=== PATIENT | female | born 1950 | race Caucasian/White ===

== ENCOUNTER 2017-12-07 11:46 | Day surgery (SDC) | payer MEDICARE, OTHER, SELFPAY ==
[2017-12-07] VITALS (10 sets, daily range): BP systolic 130–155; BP diastolic 63–76; PULSE 79–93; RESP 16–20; TEMP 36–36.3; O2SAT 91–97; BMI 41.8
[2017-12-07 12:40] LABS: Bedside Glucose 151 mg/dL (70-110)
== END 2017-12-07 15:27 | disposition home or self-care (01) ==
LOC: EN 11:46 → AC 11:48
PROVIDERS: Family Provider Internal Medicine; PCP Internal Medicine; Visit Provider Internal Medicine Pulmonary Disease
PROC: 0BJ08ZZ Inspection of Tracheobronchial Tree, Via Natural or Artificial Opening Endoscopic (ICD-10-PCS; CPT 31622; principal; 2017-12-07 12:35)
DX: J69.0 Pneumonitis due to inhalation of food and vomit (principal); R05 Cough; G47.33 Obstructive sleep apnea (adult) (pediatric); J45.909 Unspecified asthma, uncomplicated; N18.3 Chronic kidney disease, stage 3 (moderate); E11.9 Type 2 diabetes mellitus without complications; E78.00 Pure hypercholesterolemia, unspecified; I12.9 Hypertensive chronic kidney disease with stage 1 through stage 4 chronic kidney disease, or unspecified chronic kidney disease; Z79.4 Long term (current) use of insulin; Z87.891 Personal history of nicotine dependence
CPT/HCPCS: 31624; 31899; 82962; 87070; 87077; 87186; 87205; J7120

== ENCOUNTER → 2017-12-30 15:26 | Outpatient (CLI) | payer MEDICARE, OTHER, SELFPAY ==
--- NOTE | 2017-12-30 15:29 | RAD_ITS ---
STUDY: X-RAY CHEST REASON FOR EXAM: Female, 67 years old. Cough. Pneumonitis. TECHNIQUE: PA and lateral views of the chest. COMPARISON: Comparison is made with prior examination dated December 22, 2017. FINDINGS: Scattered calcified granulomas. Minimal thickening of the lateral aspect of the right minor fissure. This most likely represents scarring. There is no demonstrated pleural abnormality. There is moderate cardiac enlargement. There are calcified mediastinal and hilar lymph nodes. Normal visualized pulmonary arteries. There is atherosclerotic calcification of the aortic arch with tortuosity. There are diffuse degenerative changes of the visualized thoracic spine. Dextroscoliosis. Pectus excavatum deformity. There is no demonstrated abnormality of the visualized soft tissue structures of the upper abdomen. RAD/Chest PA and Lateral IMPRESSION: Cardiomegaly. Pectus excavatum deformity. No acute abnormality is seen. Electronically Signed: Anam Larios MD at 12:54 EST Tel [phone], Service support ,
== END ==
PROVIDERS: Family Provider Internal Medicine; PCP Internal Medicine; Visit Provider Internal Medicine Pulmonary Disease
DX: J18.9 Pneumonia, unspecified organism (principal); R05 Cough
CPT/HCPCS: 71046

== ENCOUNTER 2018-01-08 15:33 | Day surgery (SDC) | payer MEDICARE, OTHER, SELFPAY ==
[2018-01-08] VITALS (8 sets, daily range): BP systolic 138–168; BP diastolic 63–100; PULSE 84–99; RESP 18–20; TEMP 36.2–36.5; O2SAT 87–98; BMI 41.7
[2018-01-08 16:25] LABS: Bedside Glucose 132 mg/dL (70-110)
--- NOTE | 2018-01-08 18:05 | PCM.PN.BLA ---
Progress Note Bronchoscopy report Procedure: Bronchoscopy with bronchial lavage and foreign body removal Indication: Cough, shortness of breath Physician: Octavio Delgado MD Nurse: Azeb Bellamy, anesthesia Date is 01/08/2018 Anesthesia: Topical lidocaine viscous, liquid 2% lidocaine, Cetacaine spray, propofol per anesthesia Procedure: After addressing the risks and benefits with the patient including but not limited to pneumothorax, bleeding, infection. The 6.1 mm bronchoscope was advanced into the right nares after 2 cc of Forest-Synephrine and viscous lidocaine. The anatomy and movement of the cords was normal. The anatomy and movement of the epiglottis was normal. The upper trachea showed normal anatomy. The left tracheobronchial tree including the left upper lobe segment and lower lobe segments were narrow but patent and without foreign body. The right upper lobe segments and subsegments as well as the right middle lobe superior segment and medial basilar segments were patent. Right lower lobe segments were occluded with a foreign object. Steps were advanced and a PE was removed from the right lower lobe which occluded the entire lower lobe beyond the medial basilar segment this patient's airways are small. The foreign body was removed through the right nares but broke in half in the nose. He 5% of the material was suctioned and removed after the procedure the patient has to blow her nose further. Vision was then turned to the same areas with a small bore 5.3 mm scope with the scope was advanced further out in all of the above described segments of the bronchial lavage done in the right lower lobe there are segment producing thick mucoid material. Care was sent for culture but there is no further foreign material identified. The superior segment on the right, on the left in the left lower lobe were also lavaged without any return of mucus or material with the patient tolerated the procedure with an improvement in saturation from 87% on room air at rest to 93% at room air after the procedure the right lower lobe was patent The patient was stable to recovery and the patient and the patient's was informed of the findings and all questions were answered.
== END 2018-01-08 19:24 | disposition home or self-care (01) ==
LOC: EN 15:33 → AC 15:35
PROVIDERS: Family Provider Internal Medicine; PCP Internal Medicine; Visit Provider Internal Medicine Pulmonary Disease
PROC: 0BJ08ZZ Inspection of Tracheobronchial Tree, Via Natural or Artificial Opening Endoscopic (ICD-10-PCS; CPT 31622; principal; 2018-01-08 16:45)
DX: J69.0 Pneumonitis due to inhalation of food and vomit (principal); J45.902 Unspecified asthma with status asthmaticus; K21.9 Gastro-esophageal reflux disease without esophagitis; G47.33 Obstructive sleep apnea (adult) (pediatric); E66.09 Other obesity due to excess calories; D86.9 Sarcoidosis, unspecified; J44.9 Chronic obstructive pulmonary disease, unspecified; E78.00 Pure hypercholesterolemia, unspecified; E11.22 Type 2 diabetes mellitus with diabetic chronic kidney disease; I12.9 Hypertensive chronic kidney disease with stage 1 through stage 4 chronic kidney disease, or unspecified chronic kidney disease; N18.3 Chronic kidney disease, stage 3 (moderate); D63.1 Anemia in chronic kidney disease; Z79.4 Long term (current) use of insulin; Z98.1 Arthrodesis status; Z87.891 Personal history of nicotine dependence; Z79.899 Other long term (current) drug therapy; Z85.828 Personal history of other malignant neoplasm of skin
CPT/HCPCS: 31622; 31635; 82962; 87070; 87205; J7120; A4216

== ENCOUNTER → 2018-01-29 13:08 | Outpatient (CLI) | payer MEDICARE, OTHER, SELFPAY ==
--- NOTE | 2018-01-29 13:25 | RAD_ITS ---
STUDY: SWALLOWING STUDY REASON FOR EXAM: Female, 67 years old. Possible aspiration. TECHNIQUE: The examination was performed with Speech Pathology in attendance. Under fluoroscopic observation, the patient ingested thin barium, thick barium, barium pudding, and barium coated cracker. FLUOROSCOPY TIME: 2:18 minutes/seconds. 2073 spot views were obtained. RADIOLOGIST INVOLVEMENT: Radiologist was present and providing direct supervision. COMPARISON: None. FINDINGS: The following was observed during swallowing of the various mixtures of barium: Thin Barium: There is evidence of penetration and evacuation with ingestion of thin liquids. There is evidence of aspiration with the chin tuck maneuver. Thick Barium: There was no evidence of aspiration or laryngeal penetration. Barium Pudding: There was no evidence of aspiration or laryngeal penetration. Barium Coated Cracker: There was no evidence of aspiration or laryngeal penetration. RAD/Swallowing Function w/Video IMPRESSION: Penetration with evacuation upon ingestion of thin liquids. The patient ingested a 12 mm tablet of barium without any difficulty. The swallow study findings were discussed with the patient by the speech pathologist at the conclusion of the examination. Please see speech pathology report for more information and recommendations. Electronically Signed: Anam Larios MD at 14:25 EST Tel [phone], Service support ,
--- NOTE | 2018-01-29 13:30 | SP.MBSS_ITS ---
PRIMARY / SECONDARY DIAGNOSIS: dysphagia (R13.10) REFERRING PHYSICIAN: Dr. Isaías Stroud MD CURRENT DIET: regular textures, thin liquids DENTITION: WFL MENTAL STATUS: WNL RESPIRATORY STATUS: O2 via room air PREVIOUS MODIFIED BARIUM SWALLOW STUDY: none REASON FOR REFERRAL: Patient is a 67 year old female referred for a modified barium swallow (MBS) study to objectively assess the Patients oropharyngeal swallow function under fluoroscopy secondary to recent recurring issues with consumption of primarily solid textures, with the Patient experiencing recent aspiration of solid textures with similar episodes occurring approximately 4 years prior all requiring bronchoscopy with bronchial lavage and foreign body removal. 2013 Patient inhaled pieces of hamburger and Danish rice. 04/26/2014 underwent bronchoscopy with bronchial lavage and foreign body removal after aspirating rice during intake of hamburger and Danish rice. 12/04/2017 CT/Chest revealed old granulomatous disease; no acute pulmonary abnormality; resolution of the right lower lobe infiltrate seen on the prior CT. 12/31/2017 CXR revealed cardiomegaly; pectus excavatum deformity; no acute abnormality is seen. 2017 underwent bronchoscopy with bronchial lavage and foreign body removal after aspirating rice during intake of [place] food with resulting pneumonitis of both food and emesis with bronchospasm, documentation reveals history of esophageal strictures with plans for segmental wall installer referral for possible esophageal dilatation. Patient reports additional incidences at out of state locations. Patient further reports extensive history of gastroesophageal reflux , with all items consumed during said incidences described to this clinician consisting of caffeinated beverages in addition to spicy and acidic foods. Patient further reported taking fat burners prior to initial onset of symptoms, unclear as to what exactly this is. MEDICAL HISTORY: Recurrent aspiration pneumonia, history of esophageal strictures, chronic obstructive lung disease, sarcoidosis, asthma, stage II chronic kidney disease, allergies, skin cancer of the face, obstructive sleep apnea, benign hypertension , hyperlipidemia, on home O2, type 2 diabetes mellitus. STUDY FINDINGS: Patient participated in a Modified Barium Swallow (MBS) study on 01/22/2018. Dr. Larios was the radiologist present for this evaluation. This study was recorded in the lateral view and images were sent to PACs for storage. The following consistencies were presented to this patient for analysis of oropharyngeal swallow function: thin liquids, nectar thickened liquids, pudding , and a regular textured, Nika Doone cookie. Results of the MBS are as follows: PENETRATION / ASPIRATION SCALE (COX): 1 = does not enter airway 2 = enters airway/above vocal folds/ejected 3 = enters airway/above vocal folds/not ejected 4 = enters airway/contacts vocal folds/ejected 5 = enters airway/contacts vocal folds/not ejected 6 = enters airway/below vocal folds/ejected 7 = enters airway/below vocal folds/not ejected despite effort 8 = enters airway/below vocal folds/no effort VIDEOFLOROSCOPIC SCALE SCORE (COX): Grade I = aspiration of material that has penetrated into the laryngeal vestibule, intact cough reflex Grade II = aspiration < 10 % of the bolus, intact cough reflex Grade III = aspiration of < 10 % of the bolus, reduced cough reflex or aspiration of > 10 % of the bolus, intact cough reflex Grade IV = aspiration of > 10 % of the bolus, reduced cough reflex PENETRATION / ASPIRATION SCALE (SCORE) WITH VIDEOFLOROSCOPIC SCALE SCORE: Thin liquids via cup (habitual): 1 Thin liquids via cup (single sip): 1 Thin liquids via cup (chin tuck): 7 - Grade II Thin liquids via cup (single sip): 2 Thin liquids via cup (single sip): 2 Thin liquids via cup (single sip): 1 Thin liquids via cup (single sip): 2 Thin liquids via cup (single sip): 1 [place] thickened liquids via cup (single sip): 1 [place] thickened liquids via cup (single sip): 2 [place] thickened liquids via cup (single sip): 1 Pudding via spoon: 1 Regular textured cookie: 1 Regular textured cookie: 1 Thin liquids via cup with 12mm tablet: 1 IMPRESSION: DIAGNOSIS: mild to moderate oropharyngeal and pharyngoesophageal dysphagia ( R13.12) ORAL PHASE CHARACTERIZED BY: LABIAL SEAL: no labial escape TONGUE CONTROL DURING BOLUS MANIPULATION: intermittent posterior escape of less than half of bolus BOLUS PREPARATION / MASTICATION: timely and efficient chewing and mashing BOLUS TRANSPORT / LINGUAL MOTION: brisk tongue motion ORAL RESIDUE: trace residue lining oral structures PHARYNGEAL PHASE CHARACTERIZED BY: INITIATION OF PHARYNGEAL SWALLOW: intermittent bolus head in pyriforms at first hyoid excursion during thin liquids; bolus head in valleculae at first hyoid excursion across majority of trials SOFT PALATE ELEVATION: no bolus between soft palate and pharyngeal wall LARYNGEAL ELEVATION: partial superior movement of thyroid cartilage/partial approximation of arytenoids cartilage to epiglottic petiole ANTERIOR HYOID EXCURSION: complete anterior movement EPIGLOTTIC MOVEMENT: complete epiglottic inversion LARYNGEAL VESTIBULE CLOSURE AT HEIGHT OF SWALLOW: complete laryngeal vestibule closure with no air/contrast in laryngeal vestibule PHARYNGEAL STRIPPING WAVE: pharyngeal stripping wave present / complete PHARYNGOESOPHAGEAL SEGMENT OPENING: partial distension and partial duration; partial obstruction of flow TONGUE BASE RETRACTION: no contrast between tongue base and posterior pharyngeal wall PHARYNGEAL RESIDUE: trace residue within or on pharyngeal structures ESOPHAGEAL PHASE CHARACTERIZED BY: ESOPHAGEAL BOLUS CLEARANCE IN THE UPRIGHT POSITION: esophageal retention with retrograde flow below pharyngoesophageal segment (PES) EFFECTS OF TREATMENT STRATEGIES ATTEMPTED: Chin tuck posture = ineffective Reduced bolus size = moderately effective DIET TEXTURE RECOMMENDATIONS: Will recommend a regular textured, thin liquid diet. COMPENSATORY STRATEGIES RECOMMENDED: Reduced bolus volume, reduced rate of intake, avoid straws, seated upright at 90 degrees during PO intake, remain upright for at minimum 60 minutes post meal (GERD precaution) INTERPRETATION OF RESULTS: Patient presents with mild to moderate oropharyngeal dysphagia and pharyngoesophageal dysphagia (R13.12, R13.14). Oral phase primarily marked by suboptimal lingual control with intermittent posterior escape of less than half of bolus directly attributing to pre-prandial penetration and aspiration during thin liquid intake with chin tuck posture. Pharyngeal phase primarily marked by consistent delayed pharyngeal swallow onset timing resulting in suboptimal bolus location upon swallow onset contributing to intermittent prandial penetration without improvement appreciated from postural and texture adjustments; and partial distension and partial duration of the pharyngoesophageal segment opening with partial obstruction of flow, tough largely inconsequential. Esophageal phase marked by consistent esophageal retention within the lower 3rd of the esophagus with retrograde flow below pharyngoesophageal segment (PES), may likely be a contributing factor in regards to the Patients current complaints. Patient noted to overtly aspirate during very minimal (<5%) amount of thin liquids aspirated. Adequate ingestion of solid textures appreciated. RECOMMENDATIONS: Would recommend continued assessment of the Patients esophageal functioning, as it is outside the scope of the modified barium swallow study to objectively assess esophageal functioning, with workup currently underway via segmental wall installer. Patient able to comprehend and express recommended intake precautions detailed above with sufficient detail to suggest high likelihood of compliance. Provided brief overview of signs and symptoms of aspiration, with recommendations for the Patient to further discuss symptoms with PCP. No further skilled speech-language services warranted at this time targeting dysphagia. ADDITIONAL COMMENTS/RECOMMENDATIONS: Results and recommendations were discussed with the Patient immediately following MBS completion, with the Patient verbalizing understanding and agreement with all recommendations and education provided. IMAGE COUNT: 2073 G-CODES: SWALLOWING [id number] Current Status: CI SWALLOWING [id number] Goal Status: CI SWALLOWING [id number] Discharge Status: CI
== END ==
PROVIDERS: Family Provider Internal Medicine; PCP Internal Medicine; Visit Provider Internal Medicine Gastroenterology
DX: T17.820A Food in other parts of respiratory tract causing asphyxiation, initial encounter (principal)
CPT/HCPCS: 74230; 92611; G8996; G8997; G8998

== ENCOUNTER → 2018-03-29 11:06 | Outpatient (CLI) | payer MEDICARE, OTHER, SELFPAY ==
[2018-03-29 12:13] LABS: Microalbumin,Random Urine 6.1 mg/L (NO RANGE EST.); Microalbumin:Creatinine Ratio 5.5 mg/g CRE (<30 mg/g CRE)
[2018-03-29 12:42] LABS: Hematocrit 42.5 % (37-47); Hemoglobin 13.3 g/dl (12.0-15.0); Mean Corp Hgb Conc 31.3 g/gl (32-36); Mean Corpuscular Hgb 29.6 pg (27.0-32.0); Mean Corpuscular Volume 94.7 fL (81-99); Mean Platelet Vol. 9.5 fl (6.2-12.0); Platelet Count 258 K/mm3 (150-450); RBC Distribution Width CV 14.6 % (11.6-14.6); RBC Distribution Width SD 50.1 fl (35.1-43.9); Red Blood Count 4.49 M/mm3 (4.2-5.4); White Blood Count 9.7 K/mm3 (4.4-11.0)
[2018-03-29 12:56] LABS: PTHIN 25.7 pg/mL (18.4-80.1)
[2018-03-29 12:58] LABS: Albumin, Serum 3.4 g/dL (3.2-5.0); BUN 29 mg/dL (7-18); BUN/Creat Ratio 19.1 RATIO (10-20); Calcium,Total 9.8 mg/dL (8.5-10.1); Chloride 107 mmol/L (98-107); Creatinine, Serum 1.52 mg/dL (0.55-1.02); EST Glomerular Filtration Rate 36 mL/min (>60); Est Glom Filt Rate - Afr Amer 44 mL/min (>60); Glucose 107 mg/dL (74-106); Magnesium 1.7 mg/dL (1.6-2.6); Phosphorus 2.1 mg/dL (2.5-4.9); Potassium 3.9 mmol/L (3.5-5.1); Sodium Level 143 mmol/L (136-145); Uric Acid 8.4 mg/dL (2.6-6.0)
[2018-03-29 13:10] LABS: Vitamin D,25 Hydroxy 36.6 ng/mL (29.95-100.01)
[2018-03-29 13:15] LABS: Scan Indicated on CBC? Y/N NO
== END ==
PROVIDERS: Family Provider Internal Medicine; PCP Internal Medicine; Visit Provider Internal Medicine Nephrology
DX: E55.9 Vitamin D deficiency, unspecified (principal); E83.52 Hypercalcemia; N18.4 Chronic kidney disease, stage 4 (severe); D63.1 Anemia in chronic kidney disease; M10.9 Gout, unspecified
CPT/HCPCS: 36415; 80069; 82043; 82306; 82570; 83735; 83970; 84550; 85027

== ENCOUNTER → 2018-04-01 13:24 | Outpatient (CLI) | payer MEDICARE, OTHER, SELFPAY ==
[2018-04-01 14:03] LABS: Amphetamine Urine VISTA NEGATIVE (<1000 ng/mL); Barbiturate Urine VISTA NEGATIVE (< 200 ng/mL); Benzodiazepine Urine VISTA NEGATIVE (< 200 ng/mL); Cocaine Urine VISTA NEGATIVE (< 300 ng/mL); Ecstacy Urine VISTA NEGATIVE (< 500 ng/mL); Methadone Urine VISTA NEGATIVE (< 300 ng/mL); PCP Urine VISTA NEGATIVE (< 25 ng/mL); THC Urine VISTA NEGATIVE (< 50 ng/mL); Vista UDS pH Range 7
== END ==
PROVIDERS: Family Provider Internal Medicine; PCP Internal Medicine; Visit Provider Anesthesiology Pain Medicine
DX: F11.20 Opioid dependence, uncomplicated (principal)
CPT/HCPCS: 80307

== ENCOUNTER 2018-04-22 13:22 | Outpatient (RCR) | payer MEDICARE, OTHER, SELFPAY ==
[2018-04-22 13:56] LABS: Anion Gap 3 (5-15); BUN 26 mg/dL (7-18); BUN/Creat Ratio 18.4 RATIO (10-20); Calcium,Total 8.7 mg/dL (8.5-10.1); Chloride 104 mmol/L (98-107); Creatinine, Serum 1.41 mg/dL (0.55-1.02); EST Glomerular Filtration Rate 40 mL/min (>60); Est Glom Filt Rate - Afr Amer 48 mL/min (>60); Glucose 112 mg/dL (74-106); Potassium 4.4 mmol/L (3.5-5.1); Sodium Level 138 mmol/L (136-145)
== END 2018-04-29 23:59 ==
LOC: HHLAB 13:22
PROVIDERS: Family Provider Internal Medicine; PCP Internal Medicine; Visit Provider Orthopaedic Surgery
DX: E11.9 Type 2 diabetes mellitus without complications (principal); I10 Essential (primary) hypertension
CPT/HCPCS: 80048

== ENCOUNTER → 2018-05-20 10:49 | Outpatient (CLI) | payer MEDICARE, OTHER, SELFPAY ==
--- NOTE | 2018-05-20 10:51 | BI_ITS ---
MAMMOGRAPHY - BILATERAL SCREENING REASON FOR EXAM: Female, 67 years old. Routine annual screening examination. PERTINENT HISTORY: Non-contributory. TECHNIQUE: Digital bilateral breast arie (3D mammographic acquisition) in the CC and MLO projections. 2-D mediolateral oblique (MLO) and craniocaudad (CC) views of both breasts were obtained. CAD: Full Field Digital Mammography with Computer Added Detection was performed. COMPARISON: Comparison is made with prior study dated May 12, 2017 and May 09, 2016. FINDINGS: Breast Composition: The breasts are almost entirely fatty. There are no dominant masses or suspicious calcifications. No other significant abnormalities are identified. There has been no significant change since the prior study. BI/SCREENING MAMM (CAD), BILAT IMPRESSION: Stable bilateral screening mammogram. Yearly follow-up mammogram recommended. (A) ASSESSMENT CATEGORY: BIRADS Category 1: Negative. A letter regarding these results will be sent to the patient by the facility within 30 days. Approximately 10% of breast cancers are not detected by mammography. A normal mammogram should not delay biopsy of a clinically suspicious abnormality. [id number] Electronically Signed: Anam Larios MD at 7:57 EDT Tel [phone], Service support ,
== END ==
PROVIDERS: Family Provider Internal Medicine; PCP Internal Medicine; Visit Provider Internal Medicine
DX: Z12.31 Encounter for screening mammogram for malignant neoplasm of breast (principal)
CPT/HCPCS: 77063; 77067

== ENCOUNTER → 2018-10-04 11:17 | Outpatient (CLI) | payer MEDICARE, OTHER, SELFPAY ==
[2018-10-04 12:21] LABS: Hematocrit 40.3 % (37-47); Hemoglobin 12.9 g/dl (12.0-15.0); Mean Corpuscular Hgb 30.2 pg (27.0-32.0); Mean Corpuscular Volume 94.4 fL (81-99); Mean Platelet Vol. 9.8 fl (6.2-12.0); Platelet Count 258 K/mm3 (150-450); RBC Distribution Width SD 50.3 fl (35.1-43.9); Red Blood Count 4.27 M/mm3 (4.2-5.4)
[2018-10-04 12:24] LABS: Scan Indicated on CBC? Y/N NO
[2018-10-04 12:46] LABS: Protein, Urine (Random) 8.6 mg/dL (<11.9); Protein:Creat Ratio 116 mg/g CRE (0-200)
[2018-10-04 12:59] LABS: Albumin, Serum 3.6 g/dL (3.2-5.0); BUN 29 mg/dL (7-18); BUN/Creat Ratio 17.2 RATIO (10-20); Chloride 106 mmol/L (98-107); Creatinine, Serum 1.69 mg/dL (0.55-1.02); EST Glomerular Filtration Rate 32 mL/min (>60); Est Glom Filt Rate - Afr Amer 39 mL/min (>60); Glucose 139 mg/dL (74-106); Magnesium 1.9 mg/dL (1.6-2.6); Phosphorus 2.5 mg/dL (2.5-4.9); Sodium Level 143 mmol/L (136-145); Uric Acid 5.6 mg/dL (2.6-6.0)
[2018-10-04 13:09] LABS: PTHIN 36.7 pg/mL (18.4-80.1)
[2018-10-04 13:11] LABS: Vitamin D,25 Hydroxy 32.8 ng/mL (29.95-100.01)
== END ==
PROVIDERS: Family Provider Internal Medicine; PCP Internal Medicine; Referring Provider Internal Medicine Nephrology; Visit Provider Internal Medicine Nephrology
DX: N18.4 Chronic kidney disease, stage 4 (severe) (principal); D63.1 Anemia in chronic kidney disease; E83.52 Hypercalcemia; E55.9 Vitamin D deficiency, unspecified; M10.9 Gout, unspecified
CPT/HCPCS: 36415; 80069; 82306; 82570; 83735; 83970; 84156; 84550; 85027

== ENCOUNTER → 2018-10-26 12:43 | Outpatient (CLI) | payer MEDICARE, OTHER, SELFPAY ==
--- NOTE | 2018-10-26 12:55 | RAD_ITS ---
STUDY: X-RAY - LUMBAR SPINE REASON FOR EXAM: Female, 67 years old. Low back pain TECHNIQUE: 3 view(s) of the lumbar spine were obtained. COMPARISON: 06/09/2017 FINDINGS: Normal lumbar lordosis. Slight levoscoliosis. There is a normal alignment of the vertebrae. Stable postsurgical fixation of L4-S1. There is multilevel endplate spondylosis of the lumbar vertebrae. There is multi-level degenerative disc disease with multi-level disc space narrowing. There is no demonstrated fracture. The soft tissue structures are unremarkable. RAD/Lumbar Spine 2 or 3 Views IMPRESSION: Postsurgical and degenerative changes of the lumbar spine; slightly advanced as compared to 2017 exam Electronically Signed: Dwight Choudhury DO at 11:37 EST Tel , Service support ,
--- OUTSIDE RECORDS SUMMARY | 2018-12-08 05:18 | XMS RPT_ITS | Continuity of Care Document ---
:1950 Author Organization [facility] Address [address] [place] [address] Phone Care Team Providers Name Role Phone Veronica Oquendo DO Unavailable Octavio Delgado Unavailable Nghia Bautista MD Unavailable Lobito Kauffman DO Unavailable CHONG Richards Unavailable Unavailable Gravius, Daksha Unavailable Unavailable Stephanie Rodriguez Unavailable Unavailable Slarb CHONG Clarisse Unavailable Unavailable Joaquina Stanton Unavailable Unavailable Unavailable Unavailable Problems Name Dates Details Abdominal pain (R10.9, 789.00) Comments: likely from antibiotic given to her from acute care clinic, was given augmentin which she is allergic tohad pizza with green peppers and onions Status: Active Abnormal lung sounds (R09.89, 786.7) Status: Active Abortions/Miscarriages Comments: 1, Spontaneous Status: Active ACUTE PHARYNGITIS (462.) (J02.9, 462) Status: Active Acute sinusitis, unspecified (J01.90, 461.9) Status: Active Allergic rhinitis due to other allergen (J30.89, 477.8) Status: Active Anemia (D64.9, 285.9) Status: Active Annual Medicare Phyiscal WITHOUT abnormal findings (Renamed from Encounter for general adult medical examination without abnormal findings) (Z00.00, V70.9) Status: Active Annual Medicare Phyiscal WITHOUT abnormal findings (Renamed from Encounter for general adult medical examination without abnormal findings) (Z00.00, V70.9) Status: Active Arthritis (M19.90, 716.90) Status: Active Aspiration of food, sequela (T17.890S, 908.5) Status: Active Asthma (J45.909, 493.90) Comments: sees Dr Gibbons Status: Active Atrial fibrillation (I48.91, 427.31) Comments: occurred s/p surgery - [place] test and it was normal - - pt treated with meds and converted so no cont meds Status: 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, 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 BMI 38.0-38.9,adult (Z68.38, V85.38) Status: Active BMI 38.0-38.9,adult (Z68.38, V85.38) Status: Active BMI 38.0-38.9,adult (Z68.38, V85.38) Status: Active BMI 39.0-39.9,adult (Z68.39, V85.39) Status: Active BMI 40.0-44.9, adult (Z68.41, V85.41) Status: Active Body mass index 40.0-44.9, adult (Renamed from Body mass index (BMI) of 40.0-44.9 in adult) (Z68.41, V85.41) Status: Active Breast cancer screening (Z12.39, V76.10) Status: Active Cardiomegaly (I51.7, 429.3) Status: Active Section Comments: Status: Active Chronic kidney disease, stage III (moderate) (N18.3, 585.3) Comments: cant use allopurinol for gout with kidney dz use uloric 40 qd and can increase to 80 if uric acid >6 after [address] Dr Ribeiro [place] Status: Active CHRONIC OBSTRUCTIVE ASTHMA WITH (ACUTE) EXACERBATION (J44.1, 493.22) Status: Active Constipation (K59.00, 564.00) Status: Active Corns and callosities (L84, 700) Status: Active Cough (R05, 786.2) Status: Active Cough (R05, 786.2) Status: Active Cough (R05, 786.2) Status: Active Cough (R05, 786.2) Status: Active Cough (R05, 786.2) Status: Active Cough (R05, 786.2) Status: Active Diabetes mellitus type 2, uncontrolled, without complications (E11.65, 250.02) Status: Active Diabetes mellitus type II, controlled (E11.9, 250.00) Status: Active Diabetes typeII,controlled, renal comp (250.40) Comments: vicotza made nausea and no jardiance bc GFR <30 Status: Active Diabetic autonomic neuropathy associated with type 2 diabetes mellitus (E11.43, 250.60) Comments: nausea with victroza and no jardiacne bc GFR <30 Status: Active Diarrhea (R19.7, 787.91) Comments: resolved, dehydration resolved ? related to beans and potatoes and camp ground water Status: Active Dyspnea, unspecified type (R06.00, 786.09) Status: Active Edema, unspecified (R60.9, 782.3) Status: Active Elevated uric acid in blood (E79.0, 790.6) Comments: cant do meds with GFR and other ones costly -- will try black scott juice again and karson next tme to labs Status: Active Elevated white blood cell count, unspecified (D72.829, 288.60) Status: Active Encounter for Medicare annual wellness exam (Z00.00, V70.0) Status: Active Encounter for screening for malignant neoplasm of colon (Renamed from Special screening for malignant neoplasms, colon) (Z12.11, V76.51) Comments: ordered cologarad 04/15 and normal Status: Active Encounter for screening mammogram for breast cancer (Renamed from Encounter for screening mammogram for malignant neoplasm of breast) (Z12.31, V76.12) Status: Active Epigastric pain (R10.13, 789.06) Comments: consider referreing for another EGD ( last one was 2014 ) -- if no better when stop supplements-( jt pain one ) and also hold alendronate- resume ppi daily and stop jt otc med Status: Active Facial pressure (R68.89, 780.99) Status: Active FATIGUE (R53.83, 780.79) Status: Active Fever and chills (R50.9, 780.60) Status: Active Foot deformity, right (M21.961, 736.70) Comments: hammer toes Status: Active Foot ulcer (L97.509, 707.15) Comments: was on clindamycin for several days Status: Active Gastroenteritis (K52.9, 558.9) Status: Active GERD (gastroesophageal reflux disease) (K21.9, 530.81) Status: Active GLAUCOMA NOS (365.9) Status: Active Gout (M10.9, 274.9) Comments: one rx too $$$ other rx didnt tolerate with extreme nausea and stomach pain-- allopurinol also got exteme nausea but only tried to appeae ins co -- i didnt want to use bc of later stage CKD Status: Active Gout (M10.9, 274.9) Status: Active Gout, 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, 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) Comments: working on [place] for med -- cnat use allopurinol bc of kidney fcn Status: Active Hypercholesteremia (E78.00, 272.0) Comments: had to go off crestor secondary to muscle aches Status: Active 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, 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) Status: Active Hypertriglyceridemia (E78.1, 272.1) Comments: worse-- focus on diet diet diet and cont trilipex and fish oil Status: Active Hypomagnesemia (E83.42, 275.2) Status: Active Hysterectomy Comments: in her 30's Status: Active Knee pain, right (M25.561, 719.46) Status: Active Leukocytosis, unspecified type (D72.829, 288.60) Status: Active Localized, primary osteoarthritis of lower leg (M17.10, 715.16) Status: Active Medication side effects present, initial encounter (T50.905A, 995.20) Comments: elev glucose and wbc from prednisone Status: Active Muscle spasm of back (M62.830, 724.8) Comments: low grade heat , massage and bengay creams, Status: Active Nasal drainage (J34.89, 478.19) Status: Active Nausea and vomiting in adult (R11.2, 787.01) Status: Active Need for prophylactic vaccination and inoculation against influenza (Renamed from Need for immunization against influenza) (Z23, V04.81) Status: Active Nonsmoker (Z78.9, V49.89) Status: Active Nonsmoker (Z78.9, V49.89) Status: Active Non-smoker (Z78.9, V49.89) Status: Active Nutritional counseling (Z71.3, V65.3) Status: Active Obstructive sleep apnea, adult (G47.33, 327.23) Status: Active Osteoarthritis of knee, unspecified laterality, unspecified osteoarthritis type (M17.10, 715.36) Comments: Dr Will Oliveira -- TKR trying to be had Status: Active Osteopenia (M85.80, 733.90) Status: Active Other specified viral infection, in conditions classified elsewhere and of unspecified site (B97.89, 079.89) Status: Active Pneumococcal vaccination given (Z23, V06.6) Status: Active Pneumonia (J18.9, 486) Status: Active Postmenopausal (Z78.0, V49.81) Comments: last dexa 05/16 Status: Active Pregnancies () Comments: 3 Status: Active Pre-operative examination (Z01.818, V72.84) Comments: dr Will Oliveira requested Status: Active S/P laminectomy (Z98.89, V45.89) Comments: spring 2014 Status: Active Sarcoidosis (D86.9, 135) Status: Active Sciatic nerve pain (M54.30, 724.3) Status: Active Shortness of breath at rest (R06.02, 786.05) Status: Active Sinus headache (R51, 784.0) Status: Active Sinusitis, bacterial (J32.9, 473.9) Status: Active Sore throat (J02.9, 462) Status: Active Spinal stenosis (M48.00, 724.00) Status: Active SYMPTOM, WHEEZING (R06.2, 786.07) Status: Active Toe joint pain, right (M25.571, 719.47) Status: Active Unspecified asthma with (acute) exacerbation (J45.901, 493.92) Comments: perry rayo alpha one antitrypsin 08/15 Status: Active Unspecified Diagnosis Status: Active Unspecified Diagnosis Status: Active Unspecified Diagnosis Status: Active Unspecified Diagnosis Status: Active Unspecified Diagnosis Status: Active Unspecified Diagnosis Status: Active Unspecified Diagnosis Status: Active Unspecified Diagnosis Status: Active Unspecified osteoarthritis, unspecified site (M19.90, 715.90) Comments: taking otc supplements for oa support and inflammation support Status: Active VACCINE AGAINST INFLUENZA (Z23, V04.81) Comments: Lot:[id number]:05/17/18Amt:0.5mlRoute:IMSite: Keira DltdGiven By: ANTOINE Ibrahim signed Status: Active Vitamin D deficiency (E55.9, 268.9) Comments: h/o if takes too much vit D gets hypercalcemia Status: Active Wheeze (R06.2, 786.07) Status: Active Medications Name Dates Details Advair Diskus 500-50 MCG/DOSE Inhalation Aerosol Powder Breath Activated 1 (one) Aero Pow Br Act bid for 90 days Quantity: 3 {Box} Refills: 3 Ordered:25-Aug-2018 Cade Oquendo DO, DO, Kathleen Start : 25-Aug-2018 Active Alendronate Sodium 70 MG Oral Tablet 1 (one) Tablet weekly for 90 days Quantity: 12 {Tablet} Refills: 3 Ordered:25-Aug-2018 Cade Oquendo DO, DO, Kathleen Start : 25-Aug-2018 Active Ammonium Lactate 12 % External Cream 1 Cream daily for 90 days Quantity: 3 {Applicator} Refills: 3 Ordered:01-Jun-2017 Cade Oquendo DO, DO, Kathleen Start : 01-Jun-2017 Active Claritin 10 MG Oral Tablet 1 Tablet qd for 0 days Quantity: 90 {Tablet} Refills: 3 Ordered:25-Aug-2018 Cade Oquendo DO, DO, Kathleen Start : 25-Aug-2018 Active Cozaar 50 MG Oral Tablet 1 Tablet qd for 0 days Quantity: 90 {Tablet} Refills: 3 Ordered:25-Aug-2018 Cade Oquendo DO, DO, Kathleen Start : 25-Aug-2018 Active Fluticasone Propionate 50 MCG/ACT Nasal Suspension 1 (one) Suspension uad for 90 days Quantity: 3 {Box} Refills: 3 Ordered:25-Nov-2017 Elizabeth Diego LPN Start : 25-Nov-2017 Active FreeStyle Test In Vitro Strip 1 (one) Strip bid for 90 days Quantity: 3 {Bottle} Refills: 3 Ordered:25-Aug-2018 Cade Oquendo DO, DO, Kathleen Start : 25-Aug-2018 Active Comments:lite dx 250.02 Insulin Syringe 31G X 5/16 1 ML Miscellaneous 1 (one) Misc bid for 0 days Quantity: 3 {Box} Refills: 1 Ordered:08-Jun-2017 Cade Oquendo DO, DO, Kathleen Start : 08-Jun-2017 Active Comments:e11.65 Januvia 50 MG Oral Tablet 1 (one) Tablet daily for 0 days Quantity: 90 {Tablet} Refills: 3 Ordered:25-Aug-2018 Cade Oquendo DO, DO, Kathleen Start : 25-Aug-2018 Active Lasix 40 MG Oral Tablet 1 (one) Tablet daily for 0 days Quantity: 30 {Tablet} Refills: 0 Ordered:18-Aug-2018 Pennie Crabtree MD Start : 18-Aug-2018 Active Comments:PRN Levemir 100 UNIT/ML Subcutaneous Solution 20 units qd for 0 days Quantity: 3 {Vial} Refills: 0 Ordered:19-Aug-2018 Cade Oquendo DO, DO, Kathleen Start : 19-Aug-2018 Active Comments:new dose Levemir 100 UNIT/ML Subcutaneous Solution 20 units qd for 0 days Quantity: 1 {Vial} Refills: 0 Ordered:19-Aug-2018 Cade Oquendo DO, DO, Kathleen Start : 19-Aug-2018 Active Maxzide-25 37.5-25 MG Oral Tablet 1 (one) Tablet qd for 90 days Quantity: 90 {Tablet} Refills: 3 Ordered:25-Aug-2018 Cade Oquendo DO, DO, Kathleen Start : 25-Aug-2018 Active MiraLax Oral Packet 1 (one) Packet 17 g daily for 90 days Quantity: 90 {Packet} Refills: 3 Ordered:25-Aug-2018 Cade Oquendo DO, DO, Kathleen Start : 25-Aug-2018 Active Philpot 5-325 MG Oral Tablet 1 (one) Tablet 1-2 tablets q 4 hours prn for 0 days Quantity: 7 {Tablet} Refills: 0 Ordered:09-Aug-2018 aCde Oquendo DO, DO, Kathleen Start : 09-Aug-2018 Active Comments:Dr Will Oliveira managing Pantoprazole Sodium 40 MG Oral Tablet Delayed Release 1 (one) Tablet DR bid for 90 days Quantity: 90 {Tablet} Refills: 3 Ordered:25-Aug-2018 Cade Oquendo DO, DO, Kathleen Start : 25-Aug-2018 Active Pen [place] 3/16 31G X 5 MM Miscellaneous 1 (one) Misc Misc bid for 0 days Quantity: 1 {Box} Refills: 0 Ordered:08-Sep-2016 Cade Oquendo DO, DO, Kathleen Start : 08-Sep-2016 Active PredniSONE 10 MG Oral Tablet tad Tablet 3 x3 days, 2 x 3 days, 1 x 3 days, 1/2 x 3 days for 0 days Quantity: 20 {Tablet} Refills: 0 Ordered:18-Aug-2018 Devika LUUKassandra Start : 18-Aug-2018 Active Comments:with food PROBIOTIC (Oral Capsule) 1 qd Active Senexon-S 8.6-50 MG Oral Tablet 1 (one) Tablet Tablet bid for 30 days Quantity: 60 {Tablet} Refills: 1 Ordered:25-Aug-2018 Cade Oquendo DO, DO, Kathleen Start : 09-Aug-2018 Active Singulair 10 MG Oral Tablet 1 Tablet qd for 0 days Quantity: 90 {Tablet} Refills: 3 Ordered:25-Aug-2018 Cade Oquendo DO, DO, Kathleen Start : 25-Aug-2018 Active Spiriva Respimat 1.25 MCG/ACT Inhalation Aerosol Solution 2 puff Puff qd for 90 days Quantity: 3 {Inhalation} Refills: 3 Ordered:25-Aug-2018 Cade Oquendo DO, DO, Kathleen Start : 25-Aug-2018 Active TraMADol HCl 50 MG Oral Tablet 1 bid (50 MG) Active Trilipix 135 MG Oral Capsule Delayed Release [address] qd for 90 days Quantity: 90 {Capsule} Refills: 3 Ordered:19-Aug-2018 Cade Oquendo DO, DO, Kathleen Start : 19-Aug-2018 Active Uloric 40 MG Oral Tablet 1 (one) Tablet qd for 0 days Quantity: 90 {Tablet} Refills: 3 Ordered:13-Sep-2018 Azra JEAN-BAPTISTE ShanonangimatildaAzra Veronica Start : 13-Sep-2018 Active Comments:pt cant take allopurinol bc of CKD stage IV and didnt tolerate it with extreme n/v and feels awlful Ventolin HFA 108 (90 Base) MCG/ACT Inhalation Aerosol Solution 2 (two) Puff Puff q4h prn for 90 days Quantity: 3 {Inhalation} Refills: 3 Ordered:25-Nov-2017 Kelsea Lund Start : 25-Nov-2017 Active Zantac 150 Maximum Strength 150 MG Oral Tablet 1 qd (150 MG) Active ACCU-CHEK CAYDEN (In Vitro Strip) 1 Strip bid for 0 days Quantity: 180 {Strip} Refills: 3 Ordered:16-Aug-2014 Kelsea Richards LPN Start : 20-Apr-2014 End : 16-Aug-2014 Inactive ACTOS, 15MG (Oral Tablet) 1 Tablet Daily for 0 days Quantity: 30 {Tablet} Refills: 3 Ordered:03-Mar-2011 Kelsea Richards LPN Start : 27-May-2010 End : 03-Mar-2011 Inactive ADVIL, 200MG (Oral Tablet) 3 tabs q 4-5hrs prn for 0 days Refills: 0 Ordered:16-Aug-2014 Kelsea Richards LPN End : 16-Aug-2014 Inactive Albuterol Sulfate (2.5 MG/3ML) 0.083% Inhalation Nebulization Solution 1 (one) Milliliter x1 for 90 days Quantity: 3 {Box} Refills: 3 Ordered:14-Jan-2018 Kelsea Richards LPN Start : 03-Dec-2017 End : 14-Jan-2018 Inactive Albuterol Sulfate 0.63 MG/3ML Inhalation Nebulization Solution 1 Nebulized Soln Nebulized Soln q6hrs prn for 0 days Quantity: 1 {Box} Refills: 2 Ordered:14-Jan-2018 Kelsea Richards LPN Start : 16-Feb-2017 End : 14-Jan-2018 Inactive Align Oral Capsule 1 (one) Capsule daily for 7 days Quantity: 7 {Capsule} Refills: 0 Ordered:14-Jul-2017 Kassandra Fortune CNP Start : 14-Jul-2017 End : 21-Jul-2017 Inactive ASPIR-LOW, 81MG (Oral Tablet Delayed Release) [address] qd for 0 days Quantity: 90 {Tablet} Refills: 0 Ordered:17-Apr-2015 Kelsea Richards LPN Start : 16-Aug-2014 End : 17-Apr-2015 Inactive Biaxin 500 MG Oral Tablet 1 (one) Tablet PO BID for 5 days Quantity: 10 {Tablet} Refills: 0 Ordered:03-Dec-2017 Kelsea Richards LPN Start : 01-Dec-2017 End : 03-Dec-2017 Inactive Biaxin XL Pac 500 MG Oral Tablet Extended Release 24 Hour 2 (two) Tablet ER 24HR Tablet ER 24HR daily for 14 days Quantity: 28 {Tablet} Refills: 0 Ordered:13-Aug-2016 Sania Ritchie Start : 13-Aug-2016 End : 27-Aug-2016 Inactive BIAXIN, 500MG (Oral Tablet) 1 (one) Tablet bid for 7 days Quantity: 14 {Tablet} Refills: 0 Ordered:12-May-2016 Cade Oquendo DO, DO, Kathleen Start : 12-May-2016 End : 19-May-2016 Inactive Carafate 1 GM Oral Tablet 1 Tablet as needed for 0 days Quantity: 360 {Tablet} Refills: 3 Ordered:02-Apr-2018 Kelsea Richards LPN Start : 04-Jul-2016 End : 02-Apr-2018 Inactive Comments:Medication taken as needed. CARAFATE, 1GM/10ML (Oral Suspension) 1 Suspension qid 1 hr before meals and bedtime for 10 days Refills: 0 Ordered:03-Jun-2013 Kassandra Fortune CNP Start : 03-Jun-2013 End : 13-Jun-2013 Inactive CELEBREX, 200MG (Oral Capsule) 1 (one) Capsule Capsule daily for 0 days Quantity: 21 {Capsule} Refills: 0 Ordered:16-Aug-2014 Kelsea Richards LPN Start : 12-May-2014 End : 16-Aug-2014 Inactive Cipro 500 MG Oral Tablet 1 (one) Tablet bid for 7 days Quantity: 14 {Tablet} Refills: 0 Ordered:14-Jul-2017 Kassandra Fortune CNP Start : 14-Jul-2017 End : 21-Jul-2017 Inactive CLARINEX, 5MG (Oral Tablet) 1 Tablet qd for 0 days Quantity: 90 {Tablet} Refills: 3 Ordered:03-Mar-2011 Kelsea Richards LPN Start : 07-Aug-2010 End : 03-Mar-2011 Inactive Clindamycin HCl 300 MG Oral Capsule 1 (one) Capsule bid for 0 days Quantity: 20 {Capsule} Refills: 0 Ordered:01-Dec-2017 Cade Oquendo DO, DO, Kathleen Start : 01-Dec-2017 End : 01-Dec-2017 Inactive Comments:acid reflux Clotrimazole 10 MG Mouth/Throat Lozenge 1 (one) Lozenge 5 x day for 10 days Quantity: 50 {Lozenge} Refills: 0 Ordered:27-Oct-2017 Kelsea Lund Start : 27-Oct-2017 End : 06-Nov-2017 Inactive Combivent Respimat 20-100 MCG/ACT Inhalation Aerosol Solution 1 (one) Aerosol Soln tid for 30 days Quantity: 3 {Box} Refills: 0 Ordered:08-Sep-2016 Cade Oquendo DO, DO, Kathleen Start : 08-Sep-2016 End : 08-Oct-2016 Inactive CRESTOR, 5MG (Oral Tablet) 1 (one) Tablet daily for 0 days Quantity: 90 {Tablet} Refills: 0 Ordered:11-Apr-2013 Cade Oquendo DO, DO, Kathleen Start : 11-Apr-2013 End : 11-Apr-2013 Inactive DELSYM, 30MG/5ML (Oral Liquid Extended Release) 1 Liquid ER Liquid ER bid for 0 days Quantity: 6 {Ounce(s)} Refills: 0 Ordered:15-May-2014 Kelsea Richards LPN Start : 27-Sep-2013 End : 15-May-2014 Inactive DIABETIC TESTING SUPPLIES ( Strip) (Free Text) 1 Strip twice daily for 0 days Quantity: 60 {Strip} Refills: 3 Ordered:17-May-2013 Lisha Vee LPN Start : 16-May-2013 End : 17-May-2013 Inactive Comments:pt test 2 x perdaydx: 250.00 Diflucan 150 MG Oral Tablet 1 (one) Tablet qod 2 days for 0 days Quantity: 2 {Tablet} Refills: 0 Ordered:03-Dec-2017 Kelsea Richards LPN Start : 25-Nov-2017 End : 03-Dec-2017 Inactive Doxycycline Hyclate 100 MG Oral Tablet Delayed Release 1 (one) Tablet two times daily for 7 days Quantity: 14 {Tablet} Refills: 0 Ordered:29-Oct-2017 Elizabeth Diego LPN Start : 28-Oct-2017 End : 29-Oct-2017 Inactive Doxycycline Monohydrate 100 MG Oral Tablet 1 (one) Tablet Tablet bid for 0 days Quantity: 14 {Tablet} Refills: 0 Ordered:14-Jan-2018 Kelsea Richards LPN Start : 29-Oct-2017 End : 14-Jan-2018 Inactive Doxycycline Monohydrate 100 MG Oral Tablet bid 14 (100 MG) Inactive FARXIGA, 5MG (Oral Tablet) 1 (one) Tablet qd for 30 days Quantity: 30 {Tablet} Refills: 3 Ordered:28-May-2016 Kelsea Richards LPN Start : 26-May-2016 End : 28-May-2016 Inactive Comments:they are not covering jardance so doing farxiga FEXOFENADINE HCL, 60MG (Oral Tablet) 1 Tablet bid for 0 days Quantity: 60 {Tablet} Refills: 0 Ordered:03-Mar-2011 Kelsea Richards LPN Start : 29-Jan-2011 End : 03-Mar-2011 Inactive GLUCOSAMINE CHONDR 1500 COMPLX (Oral Capsule) 1 (one) Capsule Capsule 2 tabs bid for 30 days Quantity: 90 {Capsule} Refills: 0 Ordered:22-Aug-2015 Cade Oquendo DO, DO, Kathleen Start : 19-Jul-2015 End : 18-Aug-2015 Inactive Comments:OTC GLYCOLAX (Oral Powder) 1 Powder uad for 0 days Quantity: 90 {Powder} Refills: 3 Ordered:03-Jun-2013 Suki Gutiérrez LPN Start : 16-May-2013 End : 03-Jun-2013 Inactive HYDROCHLOROTHIAZIDE, 25MG (Oral Tablet) 1 Tablet qd for 0 days Quantity: 90 {Tablet} Refills: 3 Ordered:21-Jul-2013 Sania Ritchie Start : 16-May-2013 End : 21-Jul-2013 Inactive JANUVIA, 100MG (Oral Tablet) 1/2 (one half) Tablet daily for 0 days Quantity: 14 {Tablet} Refills: 0 Ordered:03-Mar-2011 Kelsea Richards LPN Start : 11-Jun-2010 End : 03-Mar-2011 Inactive KLOR-CON M10, 10MEQ (Oral Tablet Extended Release) 1 Tablet ER qd for 0 days Quantity: 90 Refills: 3 Ordered:01-Sep-2011 Kelsea Richards LPN Start : 07-Aug-2010 End : 01-Sep-2011 Inactive KLOR-CON M20, 20MEQ (Oral Tablet Extended Release) 1 (one) Tablet ER daily for 0 days Quantity: 90 {Tablet} Refills: 0 Ordered:10-Apr-2016 Kelsea Richards LPN Start : 16-Aug-2014 End : 10-Apr-2016 Inactive Comments:Pt has only been taking 1 tab daily for almost a year so wanted it corrected in chart.-jjf Lac-Hydrin 12 % External Cream 1 (one) Cream Cream bid for 90 days Quantity: 3 {Box} Refills: 0 Ordered:08-Sep-2016 Cade Oquendo DO, DO, Kathleen Start : 08-Sep-2016 End : 07-Dec-2016 Inactive LASIX, 20MG (Oral Tablet) 1 (one) Tablet Tablet qd prn for 3# wt gain or increased lower extreemity edema for 0 days Quantity: 20 {Tablet} Refills: 0 Ordered:16-Aug-2014 Kelsea Richards LPN Start : 01-May-2014 End : 16-Aug-2014 Inactive Levaquin 500 MG Oral Tablet 1 Tablet daily for 10 days Quantity: 10 {Tablet} Refills: 0 Ordered:22-Jun-2018 Kelsea Lund Start : 22-Jun-2018 End : 02-Jul-2018 Inactive LOPID, 600MG (Oral Tablet) 1 Tablet bid for 270 days Quantity: 180 {Tablet} Refills: 3 Ordered:03-Mar-2011 Kelsea Richards LPN Start : 07-Aug-2010 End : 03-Mar-2011 Inactive Medrol 4 MG Oral Tablet Therapy Pack 1 (one) Milligram TAD for 0 days Quantity: 1 {Package} Refills: 0 Ordered:01-Jul-2017 Kelsea Richards LPN Start : 22-Jun-2017 End : 01-Jul-2017 Inactive Comments:24mg PO on day 1, then decrease by 4mg/day x 5 days Take with food. METHOTREXATE, 2.5MG (Oral Tablet) 2 Tablet q week for 99 days Refills: 0 Ordered:03-Mar-2011 Kelsea Richards LPN Start : 03-Mar-2011 End : 10-Jun-2011 Inactive NAPROSYN, 500MG (Oral Tablet) 1 Tablet bid for 90 days Quantity: 180 {Tablet} Refills: 0 Ordered:12-Sep-2013 Cade Oquendo DO, DO, Kathleen Start : 12-Sep-2013 End : 11-Dec-2013 Inactive Comments:take with food for 7 days NASONEX, 50MCG/ACT (Nasal Suspension) 2 sprays each nostril Suspension once daily for 0 days Quantity: 3 {Bottle} Refills: 0 Ordered:17-Apr-2015 Kelsea Richards LPN Start : 16-Aug-2014 End : 17-Apr-2015 Inactive NexIUM 40 MG Oral Capsule Delayed Release [address] qd for 0 days Quantity: 90 {Capsule} Refills: 3 Ordered:25-Jul-2016 Kelsea Richards LPN Start : 26-Jun-2016 End : 25-Jul-2016 Inactive ONE DAILY COMPLETE (Oral Tablet) 1 qd for 0 days Refills: 0 Ordered:02-Sep-2012 Lisha Vee LPN End : 02-Sep-2012 Inactive ONGLYZA, 5MG (Oral Tablet) 1 (one) Tablet Tablet qd for 90 days Quantity: 90 {Tablet} Refills: 0 Ordered:26-May-2016 Cade Oquendo DO, DO, Kathleen Start : 14-Apr-2016 End : 26-May-2016 Inactive Patanol 0.1 % Ophthalmic Solution 1 Solution gtt bid for 90 days Quantity: 3 {Bottle} Refills: 0 Ordered:03-Sep-2016 Cade Oquendo DO, DO, Kathleen Start : 03-Sep-2016 End : 02-Dec-2016 Inactive PredniSONE 20 MG Oral Tablet 1 (one) Tablet bid for 2 days then qd for 4 days for 0 days Quantity: 8 {Tablet} Refills: 0 Ordered:14-Jan-2018 Kelsea Richards LPN Start : 01-Jan-2018 End : 14-Jan-2018 Inactive Spiriva Respimat 1.25 MCG/ACT Inhalation Aerosol Solution 1 (one) Aerosol Soln 2 puff for 30 days Quantity: 1 {Applicator} Refills: 0 Ordered:28-Jul-2017 Kelsea Richards LPN Start : 28-Jul-2017 End : 27-Aug-2017 Inactive SYMBICORT, 160-4.5MCG/ACT (Inhalation Aerosol) 2 puffs Aerosol bid for 0 days Quantity: 3 {Aerosol} Refills: 3 Ordered:16-Aug-2014 Kelsea Richards LPN Start : 15-Sep-2013 End : 16-Aug-2014 Inactive TYLENOL 8 HOUR, 650MG (Oral Tablet Extended Release) 2 prn for 0 days Refills: 0 Ordered:03-Jun-2013 Suki Gutiérrez LPN End : 03-Jun-2013 Inactive VITAMIN B12, 100MCG (Oral Tablet) 1 (one) Tablet qd for 0 days Quantity: 90 {Tablet} Refills: 3 Ordered:10-Apr-2016 Kelsea Richards LPN Start : 17-Apr-2015 End : 10-Apr-2016 Inactive VITAMIN D (ERGOCALCIFEROL), [id number] (Oral Capsule) 1 (one) Capsule daily for 30 days Quantity: 30 {Capsule} Refills: 0 Ordered:08-Oct-2015 Chiokelidevin LUUKassandra Start : 14-Aug-2015 End : 13-Sep-2015 Inactive ZITHROMAX Z-XANDER, 250MG (Oral Tablet) tad Tablet Tablet qd for 0 days Quantity: 1 {Package} Refills: 0 Ordered:12-May-2016 Kelsea Richards LPN Start : 06-May-2016 End : 12-May-2016 Inactive ACTONEL, 150MG (Oral Tablet) 1 (one) Tablet Tablet q month for 0 days Quantity: 1 {Tablet} Refills: 11 Ordered:14-Aug-2015 Clarisse Solis LPN Start : 21-May-2015 End : 14-Aug-2015 Discontinued ALBUTEROL, 90MCG/ACT (Inhalation Aerosol Solution) 2 puff q 4hrs for 0 days Refills: 0 Ordered:27-May-2010 Kelsea Richards LPN Start : 27-May-2010 End : 16-May-2013 Discontinued Comments:This order discontinued per [facility]. Allopurinol 100 MG Oral Tablet 1/2 Tablet daily for 0 days Quantity: 30 {Tablet} Refills: 0 Ordered:14-Jul-2017 Clarisse Solis LPN Start : 01-Jul-2017 End : 14-Jul-2017 Discontinued BYETTA 10 MCG PEN, 10MCG/0.04ML (Subcutaneous Solution Pen-injector) 1 (one) Solution 30 min before meals bid for 0 days Quantity: 3 {Box} Refills: 3 Ordered:26-May-2016 Cade Oquendo DO, DO, Kathleen Start : 26-May-2016 End : 26-May-2016 Discontinued Comments:abd pain BYETTA 5 MCG PEN, 5MCG/0.02ML (Subcutaneous Solution) 1 Solution 30 min before meals, bid for 30 days Refills: 0 Ordered:26-Mar-2011 Cade Oquendo DO, DO, Kathleen Start : 26-Mar-2011 End : 26-Mar-2011 Discontinued Comments:Dispense mini needles CALCIUM + D, [phone]-MG-IU (PO Cap) 2 qd for 0 days Refills: 0 Ordered:27-Apr-2012 Kelsea Richards LPN End : 27-Apr-2012 Discontinued Comments:This order discontinued per [facility]. Colcrys 0.6 MG Oral Tablet 1 Tablet Take 2, then 1, 1 hr later x1 for 0 days Quantity: 10 {Tablet} Refills: 0 Ordered:01-Jan-2018 Cade Oquendo DO, DO, Kathleen Start : 08-Sep-2016 End : 01-Jan-2018 Discontinued COZAAR, 50MG (Oral Tablet) 1 Tablet qd for 0 days Quantity: 90 {Tablet} Refills: 3 Ordered:26-Mar-2011 Cade Oquendo DO, DO, Kathleen Start : 26-Mar-2011 End : 26-Mar-2011 Discontinued Comments:new dose EDARBI, 80MG (Oral Tablet) 1 Tablet qd for 21 days Refills: 0 Ordered:27-Apr-2012 Cade Oquendo DO, DO, Kathleen Start : 27-Apr-2012 End : 27-Apr-2012 Discontinued Comments:gave her edabyclor-- 40/12.5 - 1 tab daily 3 weeks sample GAS FREE EXTRA STRENGTH, 125MG (Oral Capsule) 1 (one) Capsule Capsule TAD for 0 days Quantity: 1 {Capsule} Refills: 0 Ordered:09-Aug-2015 Clarisse Solis LPN Start : 11-Aug-2014 End : 04-Jul-2016 Discontinued Comments:This order discontinued per [facility]. GLUCOPHAGE, 500MG (Oral Tablet) 1 Tablet bid for 0 days Quantity: 180 {Tablet} Refills: 3 Ordered:07-Jun-2015 Cade Oquendo DO, DO, Kathleen Start : 07-Jun-2015 End : 07-Jun-2015 Discontinued Comments:GFR< 50 GLYCOLAX (Oral Packet) prn for 0 days Refills: 0 Ordered:02-Sep-2012 Lisha Vee LPN End : 02-Sep-2012 Discontinued Comments:This order discontinued per [facility]. HUMALOG KWIKPEN, 100UNIT/ML (Subcutaneous Solution Pen-injector) 2 (two) units units with meals for 90 days Quantity: 3 {Package} Refills: 0 Ordered:14-Aug-2015 Clarisse Solis LPN Start : 03-Aug-2015 End : 14-Aug-2015 Discontinued Jardiance 10 MG Oral Tablet 1 (one) Tablet qd for 0 days Quantity: 90 {Tablet} Refills: 3 Ordered:30-Dec-2017 Cade Oquendo DO, DO, Kathleen Start : 30-Dec-2017 End : 30-Dec-2017 Discontinued Comments:CKD GFR 30 KAPIDEX, 60MG (Oral Capsule Delayed Release) 1 (one) Capsule DR daily for 0 days Quantity: 90 {Capsule_DR} Refills: 3 Ordered:07-Aug-2010 Cade Oquendo DO, DO, Kathleen Start : 07-Aug-2010 End : 07-Aug-2010 Discontinued Comments:ins no coverage Mag-200 200 MG Oral Tablet 1 (one) Tablet Tablet qd for 0 days Quantity: 60 {Tablet} Refills: 3 Ordered:04-Jul-2016 Clarisse Solis LPN Start : 04-Jun-2016 End : 04-Jul-2016 Discontinued NORVASC, 5MG (Oral Tablet) 1 Tablet qd for 0 days Quantity: 90 {Tablet} Refills: 3 Ordered:15-May-2014 Cade Oquendo DO, DO, Kathleen Start : 15-May-2014 End : 15-May-2014 Discontinued Comments:edema NUCYNTA, 50MG (Oral Tablet) 1 (one) Tablet q 6 hrs prn for 30 days Quantity: 90 {Tablet} Refills: 0 Ordered:14-Aug-2015 Clarisse Solis LPN Start : 17-Apr-2015 End : 14-Aug-2015 Discontinued Comments:ninety ONE TOUCH TEST STRIPS (In Vitro Diagnostic Test) 1 qd for 0 days Refills: 0 Ordered:03-Jun-2013 Suki Gutiérrez LPN End : 03-Jun-2013 Discontinued Comments:This order discontinued per [facility]. ONE TOUCH ULTRA BONUS PACK (In Vitro Strip) for 0 days Refills: 0 Ordered:03-Jun-2013 Suki Gutiérrez LPN End : 03-Jun-2013 Discontinued Comments:This order discontinued per [facility]. OXYGEN-HELIUM, 20-80% (Inhalation Gas) 2 l qhs for 0 days Refills: 0 Ordered:03-Jun-2013 Suki Gutiérrez LPN End : 03-Jun-2013 Discontinued Comments:This order discontinued per [facility]. TRIAMTERENE-HCTZ, 37.5-25MG (Oral Capsule) 1 Capsule qd for 90 days Quantity: 90 {Capsule} Refills: 3 Ordered:01-May-2014 Cade Oquendo DO, DO, Kathleen Start : 01-May-2014 End : 01-May-2014 Discontinued VICTOZA, 18MG/3ML (Subcutaneous Solution Pen-injector) 1.2 sc Soln Pen-inj qd for 90 days Refills: 3 Ordered:26-May-2016 Cade Oquendo DO, DO, Kathleen Start : 26-May-2016 End : 26-May-2016 Discontinued Comments:1.2mg daily 90 day supplyabd pain Allergies and Adverse Reactions Name Dates Details Augmentin *PENICILLINS* (Allergy) Status: Active Comments: yeast inf clindamycin (Renamed from Benzodiazepines) (Allergy) Status: Active Codeine/Codeine Derivatives (Allergy) Status: Active Plaquenil *ANTIMALARIALS* (Allergy) Reaction: Rash Status: Active Past Medical History Name Dates Details Abdominal pain, acute, right upper quadrant (R10.11, 789.01) Status: Inactive as of 07-Aug-2010 Abnormal blood chemistry (R79.9, 790.6) Comments: elevated creat 1.7was on glucophage switched to byetta Status: Inactive as of 26-May-2016 Abnormal chest x-ray (R93.89, 793.2) Comments: markings from scar tissue from sarcoidoisis?-- ct being done tomorrow Status: Inactive as of 02-Apr-2018 Abnormal EKG (R94.31, 794.31) Status: Inactive as of 02-Apr-2018 Abnormal lung sounds (R09.89, 786.7) Status: Inactive as of 26-May-2016 Acute gout involving toe of right foot, unspecified cause (M10.9, 274.01) Comments: pt CKD is borderline for allopurinol but more reason is she has tried it twice and doesnt tolerate it-- extreme nausea /vomitting and feels awlful on it and in bed for 2-3 days after taking couple doses -so doenst want to try again Status: Resolved as of 25-Aug-2018 Acute pain of left knee (M25.562, 719.46) Status: Inactive as of 30-Dec-2017 Adverse reaction to drug, initial encounter (T88.7XXA, E947.9) Comments: from magnesium Status: Inactive as of 16-Jul-2016 Allergic rhinitis (J30.9, 477.9) Status: Inactive as of 02-Apr-2018 Aspiration of food, initial encounter (T17.890A, 933.1) Status: Inactive as of 02-Apr-2018 Aspiration pneumonia (J69.0, 507.0) Status: Inactive as of 19-Jul-2015 BMI 34.0-34.9,adult (Z68.34, V85.34) Status: Inactive as of 21-Jul-2017 BMI 40.0-44.9, adult (Z68.41, V85.41) Status: Inactive as of 21-Jul-2017 Bronchitis (J40, 490) Status: Inactive as of 26-May-2016 Bronchitis (J40, 490) Status: Inactive as of 30-Dec-2017 Bronchitis (J40, 490) Status: Inactive as of 19-Jul-2015 Burping (R14.2, 787.3) Status: Inactive as of 19-Jul-2015 Candidiasis of vagina (B37.3, 112.1) Status: Inactive as of 02-Apr-2018 Chest tightness (R07.89, 786.59) Status: Inactive as of 30-Dec-2017 CHRONIC KIDNEY DISEASE, STAGE IV (SEVERE) (585.4) Status: Inactive as of 09-Aug-2018 Cough (R05, 786.2) Status: Inactive as of 19-Jul-2015 Cough (R05, 786.2) Status: Inactive as of 26-May-2016 Dehydration (E86.0, 276.51) Status: Inactive as of 21-Jul-2017 Diarrhea (R19.7, 787.91) Status: Resolved as of 12-May-2016 Diarrhea (R19.7, 787.91) Status: Inactive as of 21-Jul-2017 Diarrhea (R19.7, 787.91) Comments: from victoza Status: Resolved as of 02-May-2016 Diarrhea, unspecified type (R19.7, 787.91) Comments: will try cutting back on mag and see if balance of what tolerate and not diarrhea Status: Inactive as of 16-Jul-2016 DM (diabetes mellitus), type 1, uncontrolled, with renal complications (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, 250.43) Comments: victoza very nausea --no jardiance bc GFR 30 Status: Inactive as of 02-Apr-2018 Edema (R60.9, 782.3) Status: Resolved as of 14-Oct-2017 Elevated blood pressure reading (R03.0, 796.2) Status: Inactive as of 30-Dec-2017 Esophagitis due to drug (530.19) Status: Inactive as of 16-Jul-2016 Fall (W19.XXXA, E888.9) Comments: in her RV at home had previous fall at gym with fracture of left arm Status: Inactive as of 16-Jul-2016 Flu-like symptoms (R68.89, 780.99) Status: Inactive as of 30-Dec-2017 Gastritis (K29.70, 535.50) Comments: taking protonix Status: Inactive as of 02-Apr-2018 Gout of right foot (M10.9, 274.9) Status: Inactive as of 21-Jul-2017 Heart burn (787.1) Status: Inactive as of 21-Jul-2017 Hypercalcemia (E83.52, 275.42) Status: Resolved as of 20-Aug-2016 Hypertension, benign (I10, 401.1) Comments: just took meds Status: Inactive as of 02-Apr-2018 Hypokalemia (E87.6, 276.8) Status: Resolved as of 21-Jul-2013 Impacted fracture (T14.8, 829.0) Comments: humerus left shoulder Status: Inactive as of 21-Jul-2017 Knee pain, left (M25.562, 719.46) Comments: secondary to fall Status: Inactive as of 16-Jul-2016 Left lower quadrant pain (R10.32, 789.04) Status: Inactive as of 02-May-2016 Leg cramps (R25.2, 729.82) Comments: discussed wearing support stockings, lyts., stretches and water hydration - kidney fcn : see if dr ribeiro has any other suggestons-- has diarrhea with too much mag even though it help so had to cut back Status: Resolved as of 30-Dec-2017 Lipoma of skin (D17.30, 214.1) Comments: inferior to left knee Status: Inactive as of 02-Apr-2018 Localized soft tissue swelling (R22.9, 782.2) Comments: of left side of neck, ice on and off Status: Inactive as of 02-Apr-2018 Medication monitoring encounter (Z51.81, V58.83) Comments: allopurinol and lasix monitoring -- taking otc pot and decreased dose of allopurinol to see if tolerates and gets clinically results from gouty attack-- ck cbc, cmp,, uric acid Status: Inactive as of 02-Apr-2018 Medication side effect, initial encounter (T88.7XXA, E947.9) Comments: prednisionie causing leukocytosis Status: Inactive as of 02-Apr-2018 Medication side effect, initial encounter (T88.7XXA, E947.9) Status: Inactive as of 21-Jul-2017 Muscle weakness (Renamed from Decreased motor strength) (M62.81, 728.87) Comments: h/o hypokalemia in past Status: Inactive as of 16-Jul-2016 Nausea (R11.0, 787.02) Status: Inactive as of 21-Jul-2017 Nutritional counseling (Z71.3, V65.3) Status: Inactive as of 02-Apr-2018 Pain in unspecified joint (M25.50, 719.40) Status: Inactive as of 21-Jul-2017 PNEUMONITIS DUE TO FOOD/VOMIT INHALATION (507.0) Status: Inactive as of 19-Jul-2015 Rash (R21, 782.1) Comments: drug related was on Clindamycin, stop it Status: Inactive as of 19-Jul-2015 Right foot pain (M79.671, 729.5) Status: Inactive as of 21-Jul-2017 Right lower quadrant abdominal pain (R10.31, 789.03) Comments: R& L side of abdomen related to IBS?-- cant do ct with contrast right now bc of kidney fcn Status: Inactive as of 26-May-2016 Sciatica, unspecified laterality (M54.30, 724.3) Status: Inactive as of 02-Apr-2018 Sebaceous cyst (L72.3, 706.2) Comments: some mild stuff squeezed out - very tiny and not infected at this time will follow Status: Inactive as of 02-Apr-2018 Shoulder pain, left (M25.512, 719.41) Comments: secondary to fall Status: Inactive as of 16-Jul-2016 Sinus infection (J32.9, 473.9) Status: Inactive as of 30-Dec-2017 Thrush (B37.0, 112.0) Status: Inactive as of 19-Jul-2015 Thrush, oral (B37.0, 112.0) Status: Resolved as of 30-Dec-2017 Toe pain, right (M79.674, 729.5) Status: Inactive as of 14-Jan-2018 Tongue symptom (K14.9, 529.9) Comments: burning Status: Inactive as of 26-May-2016 Vaginal itching (N89.8, 698.1) Comments: jardiance Status: Inactive as of 02-May-2016 Weight gain (R63.5, 783.1) Status: Inactive as of 02-Apr-2018 Well woman exam (Z01.419, V72.31) Status: Inactive as of 19-Jul-2015 Wheeze (R06.2, 786.07) Status: Inactive as of 30-Dec-2017 Procedures Procedure Dates Details back sx Completed Comments: 02/11 Cholecystectomy Completed Colonoscopy Completed Comments: due to have consult with Luanne 05-12-2014 per patient phone call is 2013 total knee replacement left knee 06/19/18 Completed 20-May-2018 Comments: dr marinane wilcox ortho Date Value Details 22-May-2018 Orthopedic Visit Report Result: Comments: See Note; NOTES: [facility] Orthopaedics AND Sports Medicine [address] [place] [id number] OFFICE VISIT Date of Service: 05/11/18 MR#: [id number] Acct: [id number] Name: SUGEY LING Rep #: [id number] : 1950 Provider: Tia Chirinos MD Age/Sex: 67/F [place] [facility] [place] [place]: Signed Intake Intake Visit Reasons: LOW BACK Is patient in pain?: Yes Allergies clindamycin Allergy (Verified 05/11/18 15:35) Rash morphine Allergy (Verified 05/11/18 15:35) Rash ciprofloxacin Adverse Reaction (Mild, Verified 05/11/18 15:35) Upset Stomach amoxicillin trihydrate [ From Augmentin] Adverse Reaction (Verified 05/11/18 15:35) Nausea potassium clavulanate [From Augmentin] Adverse Reaction (Verified 05/11/18 15:35) Nausea Medications Albuterol Aerosols [Ventolin Aer osols] 2.5 mg INHALATION Q6H PRN PRN 07/07/14 [History Confirmed 01/07/18] Fenofibric Acid (Choline) [Trilipix] 135 mg PO DAILY 07/07/14 [History Confirmed 01/07/18] Lactobacillus Combination No.4 [Prob iotic] 1 ea PO DAILY 07/07/14 [History Confirmed 01/07/18] Loratadine [Claritin] 10 mg PO DAILY 07/07/14 [History Confirmed 01/07/18] Losartan Potassium [Cozaar] 50 mg PO DAILY 07/07/14 [History Confirm ed 01/08/18] Montelukast [Singulair] 10 mg PO QHS 07/07/14 [History Confirmed 01/07/18] Sitagliptin Phosphate [Januvia] 50 mg PO DAILY 07/07/14 [History Confirmed 01/07/18] Triamterene 37.5MG/Hctz 25MG [Dyazide (G)] 1 cap PO DAILY 07/07/14 [History Confirmed 01/07/18] Alendronate Sodium [Fosamax] 70 mg PO QWEEK 06/21/17 [History Confirmed 01/07/18] Cholecalciferol (Vitamin D3) [Vitamin D3] 1,000 unit PO DAILY 06/21/17 [History Confirmed 01/07/18] Fluticasone 0.05% [Flonase Nasal [place]] 1 spray NASAL DAILY 06/21/17 [History Confirmed 01/07/18] Fluticasone/Salmeterol [Advair 500/50 Mcg Diskus] 1 puff INHALATION BID 06/21/17 [History Confirmed 01/08/18] Furosemide [Lasix] 40 mg PO DAILY PRN PRN 06/21/17 [History Confirmed 01/07/18] Insulin Detemir [Levemir (BKC)] 24 units SC QHS 06/21/17 [History Con firmed 01/08/18] [place]-3S/Dha/Epa/Fish Oil [Fish Oil 1,200 mg Softgel] 1 ea PO DAILY 06/21/17 [History Confirmed 01/07/18] Pantoprazole Sodium [Protonix] 40 mg PO BID 06/21/17 [History Confirmed 8] Tiotropium [place] [Spiriva Respimat] 2 puff IH DAILY 06/21/17 [History Confirmed 01/08/18] Tramadol HCl [Ultram] 50 mg PO BID 06/21/17 [History Confirmed 01/07/18] Albuterol Inhaler [Ventolin Hfa (S P)] 1 - 2 puff INHALATION Q4H PRN PRN 12/04/17 [History Confirmed 01/08/18] Sour Scott Extract [Tart [place] Extract] 1,000 mg PO DAILY 01/07/18 [History Confirmed 01/07/18] [facility] Social History Smoki ng Status: Former smoker HPI LOW BACK: Details: SUGEY LING is a 67 year old F here today for a followup on her low back pain. She was last seen in 08/2017. She states that she continues to have 60% back pain and 40% right anterior thigh pain that stops at the knee. It has not changed since her last visit. She has increased pain with sitting and laying on her right side. It is improved with nothin g. 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 Patient saw Dr Medina who gave her a caudal injection which was helpful. She has spoken with Dr Medina in the pas t regarding a spinal stimulator. Patient is currently taking pain medications from Dr Oliveira who recently did her TKA. She had a TKA on the left 3 weeks ago. She takes norco. She uses a cane. She denies bowel or bladder issues or difficulty with hand dexterity. She denies nicotine products. She has a history of L4-S1 laminectomy/fusion elsewhere. She did have a CSF leak postoperatively. She has had 2 prior spine surgery. She had postop atrial fibrillation as well. ROS Const Reports system reviewed and no additional complaints, except as docu Eyes Reports system reviewed and no additional complaint s, except as docu ENT Reports system reviewed and no additional complaints, except as docu Card Reports system reviewed and no additional complaints, except as docu Resp Reports system reviewed and no a dditional complaints, except as docu GI Reports system reviewed and no additional complaints, except as docu Reports system reviewed and no additional complaints, except as docu Musc Reports radiatin g pain into limb, Reports back pain, Reports numbness Skin/Breast Reports system reviewed and no additional complaints, except as docu Neuro Yes system reviewed and no additional complaints, except as d ocu, Yes numbness Psych Reports system reviewed and no additional complaints, except as docu Endo Reports system reviewed and no additional complaints, except as docu Ortho Exam Spine Neuro: Yes Strai ght Leg Raise (negative bilaterally) and Fischer's (negative bilaterally) General: alert, oriented x3 Capillary Refill <2sec: Yes Gait: antalgic (recent knee surgery) Motor: strength 5/5 through out Sensory Exam: no sensory deficits noted DTR's: Rt Patellar: 2+, Rt Ankle: 2+, Lt Ankle: 2+ Details: right greater trochanteric and IT band tenderness SPINE TESTING CERVICAL THORACIC LUMBAR SLR: Nega tive Musculoskeletal General: Yes normal posture Thoracic/Lumbar Spine: straight leg raise negative bilaterally, surgical scar(s) present, lumbar spinal tenderness, thoraco-lumbar ROM limited Sacroiliac joints: bilateral (tenderness on the right) Strength 0=absent - 5=normal R Hip Flexor (L1-3): 5, L Hip Flexor (L1-3): 5, R Quadriceps (L2-4): 5, L Quadriceps (L2-4): 5, R Anterior Tibialis (L4-5): 5, L Anterior Tibialis (L4-5): 5, R Hamstrings (L5-S1): 5, L Hamstrings (L5-S1): 5, GS (S1): 5, L GS (S1): 5, R Peroneals (S1): 5, L Peroneals (S1): 5 Assessment AND Plan Problems 1. Lumbar radiculopathy M54.16 Plan Imaging: DEXA 05/12/2017 spine T score -1.0, hip T score -1.6, -1.1 XR lumbar spine 06/09/2017 diffuse spondylosis with prior L4-S1 instrumentation MRI lumbar spine 04/24/2017 diffuse spondylo sis with right L3-4 foraminal stenosis. posterior fluid collection extending from L4-S1 I/R/P: 1. back pain 2. right leg pain 3. prior lumbar surgery, elsewhere x 2 with postoperative dural leak 4. h/o atrial fibrillation, CRI, DM 5. SI joint pain Ms. Ling presents with back and right leg pain. Discussed operative and nonoperative treatment options to include extension of fusion L3-S1 with instrume nted fusion, allograft. She declines spine surgery. She would like to speak with Dr. Medina regarding possible spinal sord stimulator. She will be undergoing a right TKA in 2.5 months. She will contact us if she changes her mind and wishes to pursue surgery. Plan of care discussed. All questions answered. She is in understanding. Coding Level of Care Code Off vis,est,level 4 Diagnoses Lumbar radicu lopathy M54.16 05/22/18 1408 <Electronically signed by Tia Chirinos MD> Date Tia Chirinos MD Cosigner Signature: Date (if applicable) CC: Chetan Medina MD 20-May-2018 SCREENING MAMM (CAD), BILAT Result: Comments: See Note; NOTES: [facility] Imaging Services [address] [place] [address] SCREENING MAMM (CAD), BILAT MR#: [id number] Acct: [id number] Name: SUGEY LING Rep #: [id number] : 1950 F 67 From: Anam Larios MD PCP: Veronica Oquendo DO Status: REG CLI Study: SCREENING MAMM (CAD), BILAT Date of Exam: 05/20/18 Exam# [id number] Ordering Dr: Veronica Oquendo O MAMMOGRAPHY - BILATERAL SCREENING REASON FOR EXAM: Female, 67 years old. Routine annual screening examination. PERTINENT HISTORY: Non-contributory. TECHNIQUE: Digital bilateral breast arie (3D ma mmographic acquisition) in the CC and MLO projections. 2-D mediolateral oblique (MLO) and craniocaudad (CC) views of both breasts were obtained. CAD: Full Field Digital Mammography with Computer Added D etection was performed. COMPARISON: Comparison is made with prior study dated May 12, 2017 and May 09, 2016. FINDINGS: Breast Composition: The breasts are almost entirely fatty. There are no dominant masses or suspicious calcifications. No other significant abnormalities are identified. There has been no significant change since the prior study. BI/SCREENING MAMM (CAD), BILAT IMPRESSION: Stable bilateral screening mammogram. Yearly follow-up mammogram recommended. (A) __ ASSESSMENT CATEGORY: BIRADS Category 1: Negative. A letter regarding these results will be sent to the patient by the facility within 30 days. Approximately 10% of breast cancers are not detected b y mammography. A normal mammogram should not delay biopsy of a clinically suspicious abnormality. [id number] Electronically Signed: Anam Larios MD at 7:57 EDT Tel [phone], Service jolly pport , CC: Veronica Oquendo DO [employer] Swimming [employer] Installer: Signed 29-Jan-2018 Modified Barium Swallow Study Result: Comments: See Note; NOTES: [facility] Speech Pathology [address] [place] [address] Modified Barium Swallow Study MR#: [id number] Acct: [id number] Name: SUGEY LING Rep #: [id number] : 1950 67 From: Eliezer Duke M.A., CFY-SUPERINTENDENT C[employer]ET[employer] PRIMARY / SECONDARY DIAGNOSIS: dysphagia (R13.10) REFERRING PHYSICIAN: Dr. Isaías Stroud MD CURRENT DIET: regular textures, thin liquids DENTITION: WFL MENTAL STATUS: WNL RESPIRATORY STATUS: O2 via room air PREVIOUS MODIFIED BARIUM SWALLOW STUDY: none REASON FOR REFERRAL: Patient is a 67 year old female referred for a modified barium s wallow (MBS) study to objectively assess the Patients oropharyngeal swallow function under fluoroscopy secondary to recent recurring issues with consumption of primarily solid textures, with the Patient experiencing recent aspiration of solid textures with similar episodes occurring approximately 4 years prior all requiring bronchoscopy with bronchial lavage and foreign body removal. 04/09/2014 Patien t inhaled pieces of hamburger and Finnish rice. 04/26/2014 underwent bronchoscopy with bronchial lavage and foreign body removal after aspirating rice during intake of hamburger and Finnish rice. 2017 CT/Chest revealed old granulomatous disease; no acute pulmonary abnormality; resolution of the right lower lobe infiltrate seen on the prior CT. 12/31/2017 CXR revealed cardiomegaly; pectus excavat um deformity; no acute abnormality is seen. 01/08/2018 underwent bronchoscopy with bronchial lavage and foreign body removal after aspirating rice during intake of [place] food with resulting pneumoniti s of both food and emesis with bronchospasm, documentation reveals history of esophageal strictures with plans for workforce planning analyst referral for possible esophageal dilatation. Patient reports additio nal incidences at out of state locations. Patient further reports extensive history of gastroesophageal reflux, with all items consumed during said incidences described to this clinician consisting of c affeinated beverages in addition to spicy and acidic foods. Patient further reported taking fat burners prior to initial onset of symptoms, unclear as to what exactly this is. MEDICAL HISTORY: Recurren t aspiration pneumonia, history of esophageal strictures, chronic obstructive lung disease, sarcoidosis, asthma, stage II chronic kidney disease, allergies, skin cancer of the face, obstructive sleep ap leonardo, benign hypertension, hyperlipidemia, on home O2, type 2 diabetes mellitus. STUDY FINDINGS: Patient participated in a Modified Barium Swallow (MBS) study on 01/22/2018. Dr. Larios was the radiol ogist present for this evaluation. This study was recorded in the lateral view and images were sent to PACs for storage. The following consistencies were presented to this patient for analysis of oropha ryngeal swallow function: thin liquids, nectar thickened liquids, pudding, and a regular textured, Nika Doone cookie. Results of the MBS are as follows: PENETRATION / ASPIRATION SCALE (COX): 1 = does not enter airway 2 = enters airway/above vocal folds/ejected 3 = enters airway/above vocal folds/not ejected 4 = enters airway/contacts vocal folds/ejected 5 = enters airway/contacts vocal folds/not eje cted 6 = enters airway/below vocal folds/ejected 7 = enters airway/below vocal folds/not ejected despite effort 8 = enters airway/below vocal folds/no effort VIDEOFLOROSCOPIC SCALE SCORE (COX): Grade I = aspiration of material that has penetrated into the laryngeal vestibule, intact cough reflex Grade II = aspiration < 10 % of the bolus, intact cough reflex Grade III = aspiration of < 10 % of the bolus, reduced cough reflex or aspiration of > 10 % of the bolus, intact cough reflex Grade IV = aspiration of > 10 % of the bolus, reduced cough reflex PENETRATION / ASPIR ATION SCALE (SCORE) WITH VIDEOFLOROSCOPIC SCALE SCORE: Thin liquids via cup (habitual): 1 Thin liquids via cup (single sip): 1 Thin liquids via cup (chin tuck): 7 - Grade II Thin liquids via cup (single sip): 2 Thin liquids via cup (single sip): 2 Thin liquids via cup (single sip): 1 Thin liquids via cup (single sip): 2 Thin liquids via cup (single sip): 1 Mccord thickened liquids via cup (single sip) : 1 Mccord thickened liquids via cup (single sip): 2 Mccord thickened liquids via cup (single sip): 1 Pudding via spoon: 1 Regular textured cookie: 1 Regular textured cookie: 1 Thin liquids via cup with 12mm tablet: 1 IMPRESSION: DIAGNOSIS: mild to moderate oropharyngeal and pharyngoesophageal dysphagia (R13.12) ORAL PHASE CHARACTERIZED BY: LABIAL SEAL: no labial escape TONGUE CONTROL DURING BOLU S MANIPULATION: intermittent posterior escape of less than half of bolus BOLUS PREPARATION / MASTICATION: timely and efficient chewing and mashing BOLUS TRANSPORT / LINGUAL MOTION: brisk tongue motion ORAL RESIDUE: trace residue lining oral structures PHARYNGEAL PHASE CHARACTERIZED BY: INITIATION OF PHARYNGEAL SWALLOW: intermittent bolus head in pyriforms at first hyoid excursion during thin liqu ids; bolus head in valleculae at first hyoid excursion across majority of trials SOFT PALATE ELEVATION: no bolus between soft palate and pharyngeal wall LARYNGEAL ELEVATION: partial superior movement of thyroid cartilage/partial approximation of arytenoids cartilage to epiglottic petiole ANTERIOR HYOID EXCURSION: complete anterior movement EPIGLOTTIC MOVEMENT: complete epiglottic inversion LARYNG EAL VESTIBULE CLOSURE AT HEIGHT OF SWALLOW: complete laryngeal vestibule closure with no air/contrast in laryngeal vestibule PHARYNGEAL STRIPPING WAVE: pharyngeal stripping wave present / complete PHA RYNGOESOPHAGEAL SEGMENT OPENING: partial distension and partial duration; partial obstruction of flow TONGUE BASE RETRACTION: no contrast between tongue base and posterior pharyngeal wall PHARYNGEAL R ESIDUE: trace residue within or on pharyngeal structures ESOPHAGEAL PHASE CHARACTERIZED BY: ESOPHAGEAL BOLUS CLEARANCE IN THE UPRIGHT POSITION: esophageal retention with retrograde flow below pharyngo esophageal segment (PES) EFFECTS OF TREATMENT STRATEGIES ATTEMPTED: Chin tuck posture = ineffective Reduced bolus size = moderately effective DIET TEXTURE RECOMMENDATIONS: Will recommend a regular teresa tured, thin liquid diet. COMPENSATORY STRATEGIES RECOMMENDED: Reduced bolus volume, reduced rate of intake, avoid straws, seated upright at 90 degrees during PO intake, remain upright for at minimum 60 minutes post meal (GERD precaution) INTERPRETATION OF RESULTS: Patient presents with mild to moderate oropharyngeal dysphagia and pharyngoesophageal dysphagia (R13.12, R13.14). Oral phase primarily ma rked by suboptimal lingual control with intermittent posterior escape of less than half of bolus directly attributing to pre-prandial penetration and aspiration during thin liquid intake with chin tuck posture. Pharyngeal phase primarily marked by consistent delayed pharyngeal swallow onset timing resulting in suboptimal bolus location upon swallow onset contributing to intermittent prandial penetrati on without improvement appreciated from postural and texture adjustments; and partial distension and partial duration of the pharyngoesophageal segment opening with partial obstruction of flow, tough la rgely inconsequential. Esophageal phase marked by consistent esophageal retention within the lower 3rd of the esophagus with retrograde flow below pharyngoesophageal segment (PES), may likely be a contr ibuting factor in regards to the Patients current complaints. Patient noted to overtly aspirate during very minimal (<5%) amount of thin liquids aspirated. Adequate ingestion of solid textures a ppreciated. RECOMMENDATIONS: Would recommend continued assessment of the Patients esophageal functioning, as it is outside the scope of the modified barium swallow study to objectively assess esophagea l functioning, with workup currently underway via workforce planning analyst. Patient able to comprehend and express recommended intake precautions detailed above with sufficient detail to suggest high likeliho od of compliance. Provided brief overview of signs and symptoms of aspiration, with recommendations for the Patient to further discuss symptoms with PCP. No further skilled speech-language services urbano anted at this time targeting dysphagia. ADDITIONAL COMMENTS/RECOMMENDATIONS: Results and recommendations were discussed with the Patient immediately following MBS completion, with the Patient verbalizi ng understanding and agreement with all recommendations and education provided. IMAGE COUNT: 2073 G-CODES: SWALLOWING G8996 Current Status: CI SWALLOWING G8997 Goal Status: CI SWALLOWING G8998 Discha rge Status: CI 01/29/18 1520 <Electronically signed by Eliezer Duke M.A., CFY-SUPERINTENDENT CEMETERY> Date Eliezer Duke M.A. CFY-SUPERINTENDENT CEMETERY Co-Signature Required for all Medicare patients Date/Time Co-Signature CC: 29-Jan-2018 Swallowing Function w/Video Result: Comments: See Note; NOTES: [facility] Imaging Services [address] [place] [address] Swallowing Function w/Video MR#: [id number] Acct: [id number] Name: SUGEY LING Rep #: [id number] : 1950 F 67 From: Anam Larios MD PCP: Veronica Oquendo DO Status: [facility] Study: Swallowing Function w/Video Date of Exam: 01/29/18 Exam# [id number] Ordering Dr: Isaías Stroud MD STUDY: SWALLOWING STUDY REASON FOR EXAM: Female, 67 years old. Possible aspiration. TECHNIQUE: The examination was performed with Speech Pathology in attendance. Under fluoroscopic observation, the patient ingested thin barium, thick barium, barium pudding, and barium coated cracker. FLUOROSCOPY TIME: 2:18 minutes/seconds. 2073 spot views were obtained. RADIOLOGIST INVOLVEMENT: Radiologist was present and providing direct supervision. COMPARISON: None. FINDINGS: The following was observed during swallowing of the various mixtures of barium: Thin Barium: There is evidence of penetration and evacuation with ingestion of thin liquids. There is evidence of aspiration with the chin tuck maneuver. Thick Barium: There was no evidence of aspiration or larynge al penetration. Barium Pudding: There was no evidence of aspiration or laryngeal penetration. Barium Coated Cracker: There was no evidence of aspiration or laryngeal penetration. RAD/Swallowing Function w/Video IMPRESSION: Penetration with evacuation upon ingestion of thin liquids. The patient ingested a 12 mm tablet of barium without any dif ficulty. The swallow study findings were discussed with the patient by the speech pathologist at the conclusion of the examination. Please see speech pathology repor t for more information and recommendations. Electronically Signed: Anam Larios MD at 14:25 EST Tel [phone], Service support , CC: Veronica Stroud [employer] Swimming [employer] Installer: Signed 30-Dec-2017 Chest PA and Lateral Result: Comments: See Note; NOTES: [facility] Imaging Services [address] [place] [address] Chest PA and Lateral MR#: [id number] Acct: [id number] Name: SUGEY LING Rep #: [id number] : 1950 67 From: Anam Larios MD PCP: Veronica Oquendo DO Status: REG CLI Study: Chest PA and Lateral Date of Exam: 12/30/17 Exam# [id number] Ordering Dr: Octavio Delgado MD STUDY: X- RAY CHEST REASON FOR EXAM: Female, 67 years old. Cough. Pneumonitis. TECHNIQUE: PA and lateral views of the chest. COMPARISON: Comparison is made with prior examination dated December 22, 2017. FINDINGS: Scattered calcified granulomas. Minimal thickening of the lateral aspect of the right minor fissure. This most likely represents scarring. There is no demonstra jorge pleural abnormality. There is moderate cardiac enlargement. There are calcified mediastinal and hilar lymph nodes. Normal visualized pulmonary arteries. There is atherosclerotic calcification of th e aortic arch with tortuosity. There are diffuse degenerative changes of the visualized thoracic spine. Dextroscoliosis. Pectus excavatum deformity. There is no demonstrated abnormality of the visuali zed soft tissue structures of the upper abdomen. RAD/Chest PA and Lateral IMPRESSION: Cardiomegaly. Pectus excavatum deformity. No acute abnormal ity is seen. Electronically Signed: Anam Larios MD at 12:54 EST Tel [phone], Service support , CC: Veronica Oquendo DO; Octavio Delgado MD [employer] Swimming [employer] Installer: Signed 22-Dec-2017 Chest PA and Lateral Result: Comments: See Note; NOTES: [facility] Imaging Services [address] [place] [address] Chest PA and Lateral MR#: [id number] Acct: [id number] Name: SUGEY LING Rep #: [id number] : 1950 F 67 From: Ronnie Bradford MD PCP: Veronica Oquendo DO Status: REG CLI Study: Chest PA and Lateral Date of Exam: 12/22/17 Exam# [id number] Ordering Dr: Kelsea Lund COLD ROLLERJonathan STUDY: X-RAY C HEST REASON FOR EXAM: Female, 67 years old. Fever, cough and vomiting TECHNIQUE: AP and lateral views of the chest. COMPARISON: Chest x-ray on November 16, 2017. FINDINGS: There is a calcified granuloma in the right lung. There is pulmonary vascular congestion There is no demonstrated pleural abnormality. There is moderate cardiac enlargement. There are multip le hilar and mediastinal calcified lymph nodes. Normal visualized pulmonary arteries. Normal visualized aortic arch and descending thoracic aorta. There is thoracic dextroscoliosis Normal visualized ri bs, clavicles, and shoulders. There is no demonstrated abnormality of the visualized soft tissue structures of the upper abdomen. RAD/Chest PA a nd Lateral IMPRESSION: Stable cardiomegaly with pulmonary vascular congestion. Old granulomatous disease Electronically Signed: Ronnie Bradford MD, FACR at 15:27 EST , Ser vice support , CC: NAKIA Lund; Veronica Oquendo DO Con[employer] Swimming Pool Installer: Signed 04-Dec-2017 Chest without Contrast Result: Comments: See Note; NOTES: [facility] Imaging Services [address] [place] [address] Chest without Contrast MR#: [id number] Acct: [id number] Name: SUGEY LING Rep #: [id number] : 1950 F 67 From: Rogelio Alston DO PCP: Veronica Oquendo DO Status: REG CLI Study: Chest without Contrast Date of Exam: 12/04/17 Exam# [id number] Ordering Dr: Octavio Delgado MD STUDY: CT CH EST WITHOUT CONTRAST REASON FOR EXAM: Female, 67 years old. Aspiration pneumonitis. COPD. Sarcoidosis. Asthma. RADIATION DOSAGE (If Supplied By Facility): CTDIvol = ( 20.15 ) mGy, DLP = ( 694.78 ) mGy cm TECHNIQUE: Transaxial imaging was performed without the administration of intravenous contrast material. 1 Individualized dose optimization techniques were used for this CT. COMPARISON: Chest, Oct. CT of the chest, May 13, 2016. FINDINGS: There is minimal bibasilar apical scarring there is a 4 mm calcified granuloma posteriorly in the right amanda ng apex. There is linear scarring in both lungs without focal soft tissue mass or infiltrate. There is a second 5 mm calcified granuloma is seen peripherally in the right lower lobe on image 68 of serie s 4. There is no demonstrated pleural abnormality. Normal heart and pericardium. There are calcifications of the coronary arteries. There are diffuse calcified lymph nodes throughout the mediastinum. Calcified lymph nodes are seen in both arthur. Normal unenhanced pulmonary arteries. There is atherosclerotic calcification of the aortic arch with tortuosity and elongation of the aortic arch and descend ing thoracic aorta. There are multi-level degenerative changes of the thoracic spine. There is dextroscoliosis with convexity at T10. There is fatty infiltration of the liver. CT/Chest without Contrast IMPRESSION: 1. Old granulomatous disease. 2. No acute pulmonary abnormality. There is resolution of the right lower lobe infiltrate seen on the prior CT. 3. Hepatic steatosis. Electronically Signed: Rogelio Alston DO at 13:14 EST Tel [phone], Service support , CC: Veronica Oquendo DO; Octavio Delgado MD Con[employer] Swimming [employer] Installer: Signed 17-Nov-2017 Emergency Department Summary Result: Comments: See Note; NOTES: [facility] Medical Records Department [address] [place] [address] Emergency Department Summary 11/16/17 1811 MR#: [id number] Acct: [id number] Name: SUGEY LING Rep #: [id number] : 1950 66 From: Lobito Lee MD PCP: Veronica Oquendo DO Status: DEP ER - ER Visit Summary Date of Service: 11/16/17 Chief Complaint: Shortness of breath His tory of Present Illness: The patient is a 66 F presenting for evaluation secondary to shortness of breath. Patient states that she had a aspiration event this morning. Patient states that she was eating chicken pot pie and felt as if she aspirated. Patient states that since then she has been having an abnormal feeling in the left side of her throat and shortness of breath. She states that she is havin g a cough that is nonproductive and feels that she cannot get anything up. Patient does have an underlying history of asthma and COPD is not typically on oxygen. Patient states that bandar vargas used her rescue inhaler at home this did not seem to alleviate the symptoms. Patient is able to tolerate secretions, and swallow liquids. Review of systems otherwise negative. Physical Examination: V ital signs within normal limits. Well-nourished female no acute distress. Moist mucous membranes oropharynx is clear and easily visible without any evidence of foreign material. Heart regular rate and r hythm. Lungs sounds showed evidence of rhonchi in the bilateral lung marie, with no evidence of respiratory distress or retractions. Abdomen was soft and nontender. Remainder physical otherwise unremar kable. Test Results: Chest x-ray shows chronic changes Emergency Department Course and Treatment: Patient presented for evaluation due to concern for possible aspiration event. She was given an albute rol breathing treatment. Patient's chest x-ray does not show any evidence of abnormalities, her room air oxygenation seems to be normal. Patient was ambulated on a pulse oximeter, and her pulse oximetry remained around 92% although she was dyspneic. He went back in and reevaluated the patient, she continues to have rhonchi but has normal oxygenation. She is already on a prednisone taper and sees a pul statistician theoretical. I believe that she should continue her prednisone taper, increase the frequency at which she is using her nebulizer, and follow-up with pulmonology. Patient states that in the past she has r equired bronchoscopy and had removal of a food foreign body in her airway however at this point I do not believe that requires emergent admission or pulmonary consultation but rather she can do this as an outpatient. Patient was understanding of this. She understands signs and symptoms for which to return. Disposition: Discharge Impression: 1. Aspiration event This note was generated with [employer] Doctor dictation software. It may contain incorrect words, spelling, and punctuation that were not noted in review of the chart prior to signing ED Disposition - Plan for ED Patient: Disposition: Home or As sisted Living Chief Complaint: Shortness of Breath Diagnosis: Aspiration into airway Instructions: Dysphagia: Exercises, ED Choking Spell Referrals: Veronica Oquendo DO [Primary Care Provider] - 5-7 Da ys What to do if you have Problems For any increased pain, shortness of breath, bleeding, nausea or vomiting, chest pain, or any unexpected problems, contact your Primary Care Provider. Call [facility] ([phone]) or report to the closest Emergency Room. Call 911 if necessary. 11/17/17 0054 <Electronically signed by Lobito Lee MD> Date Lobito Lee MD Cosigner Signature (If Indicated): Date CC: Veronica Oquendo DO 16-Nov-2017 Chest PA and Lateral Result: Comments: See Note; NOTES: [facility] Imaging Services [address] [place] [address] Chest PA and Lateral MR#: [id number] Acct: [id number] Name: SUGEY LING Rep #: [id number] : 1950 F 66 From: Ivone Guevara MD PCP: Veronica Oquendo DO Status: REG ER Study: Chest PA and Lateral Date of Exam: 11/16/17 Exam# [id number] Ordering Dr: Lobito Lee MD STUDY: X-RAY CHEST REASON FOR EXAM: Female, 66 years old. Shortness of breath TECHNIQUE: PA and lateral views of the chest. COMPARISON: October 09, 2017 chest x-ray FINDINGS: Ther e are chronic appearing lung markings without evidence of acute focal consolidation. There is no demonstrated pleural abnormality. There is borderline cardiomegaly. There are calcified mediastinal lymp h nodes. Normal visualized pulmonary arteries. Normal visualized aortic arch and descending thoracic aorta. Dextroscoliosis and multilevel degenerative disc disease. Normal visualized ribs, clavicles, and shoulders. There is no demonstrated abnormality of the visualized soft tissue structures of the upper abdomen. RAD/Chest PA and Lateral IMPR ESSION: Tonic appearing lung markings no evidence of acute focal infiltrate. Electronically Signed: Ivone Guevara MD at 17:48 EST Tel , Service support , Fax CC: Veronica Oquendo DO; Lobito Lee Con[employer] Swimming [employer] Installer: Signed 09-Oct-2017 Chest PA and Lateral Result: Comments: See Note; NOTES: [facility] Imaging Services [address] [place] [address] Chest PA and Lateral MR#: [id number] Acct: [id number] Name: SUGEY LING Rep #: [id number] : 1950 F 66 From: Anam Larios MD PCP: Veronica Oquendo DO Status: REG CLI Study: Chest PA and Lateral Date of Exam: 10/09/17 Exam# [id number] Ordering Dr: Will Oliveira MD STUDY: X-RAY CHEST REASON FOR EXAM: Female, 66 years old. Long-term drug therapy. TECHNIQUE: PA and lateral views of the chest. COMPARISON: Comparison is made with prior study dated May 09, 2016. FINDINGS: Stable increased markings in both lungs suggestive of scarring. Scattered calcified granulomas. There is no demonstrated pleural abnormality. There is mild cardiac enl argement. Pectus excavatum. Normal mediastinum and arthur. Normal visualized pulmonary arteries. Normal visualized aortic arch and descending thoracic aorta. There are diffuse degenerative changes of the visualized thoracic spine. Dextroscoliosis. Normal visualized ribs, clavicles, and shoulders. There is no demonstrated abnormality of the visualized soft tissue structures of the upper abdomen. RAD/Chest PA and Lateral IMPRESSION: Stable examination. Electronically Signed: Anam Larios MD at 15:14 EST Tel [phone], Service support , CC: Veronica Oquendo DO; Will Oliveira MD Concrete Swimming [employer] Installer: Signed 15-Jul-2017 PT D/C Summary (1) Result: Comments: See Note; NOTES: [facility] [address] [place] [address] Fax [facility] SUMMARY MR#: [id number] Acct: [id number] Name: SUGEY LING Rep #: [id number] : 1950 66 From: Nghia Willis PT, Cert. MDT, OCS Referring Dr.: Chetan Medina MD Status: REG RCR Insurance: [place] [employer] PART A B [employer] [place] [employer] - PT D/C Summary It has been my pleasure to treat SUGEY LING under orders from Chetan Medina, for the diagnosis of Back and Hip pain for a total of 24 visit( s). Discharge Date: 07/10/17 Please see the following information for a summary of their discharge status. - Subjective Subjective: Aquatic PT helps Able to walk longer less pain overall - Pain Right Back Pain Intensity (Out of 10): 3 Right Lower Extremity Pain Intensity (Out of 10): 3 - Overall Improvement % Improvement: 50 - Objective Objective/Function: POSTURE: mild foward. GAIT: mil d foward posture with cane. LUMBAR ROM: flexion/extension mod loss. MMT: quads/hams 4/5 ,hip flexion 4-/5. --SLR - Goals Goal 1:: Independent with HEP /AQUATIC PT Goal Progress: Goal Met Goal 2:: Patie nt will increase ROM of the lumbar spine to no loss or minimal loss to improve ability to complete ADLs. Goal Progress: Progressing Goal 3:: Patient will decrease pain by 50% of greater to improve abili ty to complete ADLs and gait pattern. Goal Progress: Goal Met Goal 4:: Patient will increase her ability to ambulate with cane from 10-15 minutes to 20 minutes. Goal Progress: Goal Met Goal 5:: Patient will be able to sleep at least 6 hours each night without pain medication. Goal Progress: Goal Met Goal 6:: Patient will increase hip strength 4+/5 to improve ability to complete ADLs and gait. Goal Pro dwayne: Goal Met - Plan Plan: D/C TO AQUATICS - D/C Information Discharge Comments: D/C TO AQUATICS If there are questions or concerns regarding this patient's physical therapy, please feel free to yamilka l ks at [phone]. Thank you for the referral of this patient. Sincerely, Nghia Willis, PT, <Electronically signed by Nghia Willis PT, Cert. MDT, [facility]> 07/15/17816 CC: Chetan Medina MD; Veronica Oquendo DO [place] Signed 11-Jul-2017 Emergency Department Summary Result: Comments: See Note; NOTES: [facility] Medical Records Department [address] [place] [address] Emergency Department Summary 06/21/17 0738 MR#: [id number] Acct: [id number] Name: SUGEY LING Rep #: [id number] : 1950 66 From: Rufino Vela MD PCP: Veronica Oquendo DO Status: DEP ER - ER Visit Summary Date of Service: 06/21/17 Chief Complaint: [] Right foot pain f or a few days history of gout History of Present Illness: The patient is a 66 F [] she reports that her typical gouty flareup involving her right foot for the last few days. She reports that basically when this occurs she needs a shot of a steroid usually put on oral prednisone she does have history of diabetes type 1, COPD hypertension and renal disorder. She absolutely denies any trauma, no history of vascular insufficiency or bony disorders involving the right foot. She states this is identical to previous exacerbations of gouty flare. She has no symptoms and any other part of her body no other complaints review of systems are negative Physical Examination: [] Head neck chest abdomen unremarkable the right lower extremity there is a diffuse discomfort to the foot there is a dorsalis pedis pul se the toes are well-perfused good capillary refill normal dorsi and plantar flexion the ankles uninvolved most of her pain is over the foot itself. The plantar foot is unremarkable again the ankles unr emarkable as is the tib-fib Test Results: [] Emergency Department Course and Treatment: [] She reports she almost always has to have a shot of steroids to help with this flare, she does understand thi s could exacerbate her diabetes and she is able to manage her diabetes by adjusting her insulin. Given her complaints and her concerning her desire to be treated with steroids she is given Kenalog 40 mg IM, she is unable to take nonsteroidals because of renal disorder, she has Ultram that she will use at home and she will follow with her family doctor for further management tomorrow Treatment Plan: [ ] Above please note x-rays deferred because she absolutely denies any trauma and again she reports this is identical to her previous gouty flares Disposition: [] Home stable Impression: [] Right foot pa in suspect related to gout ED Disposition - Plan for ED Patient: Chief Complaint: Lower Extremity Injury Instructions: ED Arthritis Gout Prescriptions: Hydrocodone Bitart/Apap 5-325 [Philpot 5/325] 1 - 2 tablet PO Q4H PRN PRN #7 tablet PRN Reason: Pain Referrals: Veronica Oquendo, DO [Primary Care Provider] - What to do if you have Problems For any increased pain, shortness of breath, bleeding, na usea or vomiting, chest pain, or any unexpected problems, contact your Primary Care Provider. Call [facility] ([phone]) or report to the closest Emergency Room. Call 911 if necessary. 07/11 0903 <Electronically signed by Rufino Vela MD> Date Rufino Vela MD Cosigner Signature (If Indicated): Date CC: Veronica Oquendo DO 21-Jun-2017 Discharge Instruction Result: Comments: See Note; NOTES: [facility] Medical Records Department [address] [place] [address] Discharge Instruction 06/21/17 0740 MR#: [id number] Acct: [id number] Name: Sissy LING Rep #: [id number] : 1950 66 From: Rufino Vela MD PCP: Veronica Oquendo DO Status: REG ER ED Disposition - Plan for ED Patient: Chief Complaint: Lower Extremity Injury Instruction s: ED Arthritis Gout Prescriptions: Hydrocodone Bitart/Apap 5-325 [Philpot 5/325] 1 - 2 tablet PO Q4H PRN PRN #7 tablet PRN Reason: Pain Referrals: Veronica Oquendo DO [Primary Care Provider] - What to do if you have Problems For any increased pain, shortness of breath, bleeding, nausea or vomiting, chest pain, or any unexpected problems, contact your Primary Care Provider. Call [facility] ) or report to the closest Emergency Room. Call 911 if necessary. 06/21/1742 <Electronically signed by Rufino Vela MD> Date Rufino Vela MD Cosigner Signature (If Indicated): Date CC: Veronica Oquendo DO 19-Jun-2017 Re-Evaluation - PT (1) Result: Comments: See Note; NOTES: [facility] [address] [place] [address] Fax REEVALUATION / MEDICARE RECERTI VEL [place] 4d PHYSICAL THERAPY MR#: [id number] Acct: [id number] Name: SUGEY LING Rep #: [id number] : 1950 66 From: Nghia Willis PT, Cert. MDT, OCS Referring Dr.: Chetan Medina MD Stat us: REG RCR Insurance: MEDICARE PART A B WPS FOR LIFE Chetan Medina, It has been my pleasure to treat SUGEY LING over the last 17 visits for Back and Hip pain. Please see the progress note below for an update on the physical therapy plan of care! Subjective: Patient seen DR Lopez ortho back specialist. Recommended Aquatics PT. Plan to Dr Holland. [place] and standing 15min increase symptoms in legs Objective/Function: POSTURE: shifted to left ,foward posture,trunk. GAIT: antalgic gait with QC leans to left decrease stance time. PALAPTION: tender right paraspinals,erctorpinals. LUMBAR ROM: flexion mod loss decrease curve reversal,extension mod severe loss ,side glides mod loss. -SLR. MMT: QUADS/HAMS 4/5,HIP FLEXION 4-/5 Plan Plan: aquatics PT DLS,flexablity,strengthening,posture,ROM,LUM BAR Goals Goal 1:: Independent with HEP /AQUATIC PT Goal Time Frame: 4-6 Weeks Goal Progress: Progressing Goal 2:: Patient will increase ROM of the lumbar spine to no loss or minimal loss to improve ab ility to complete ADLs. Goal Time Frame: 4-6 Weeks Goal Progress: Progressing Goal 3:: Patient will decrease pain by 50% of greater to improve ability to complete ADLs and gait pattern. Goal Time Frame: 2-4 Weeks Goal Progress: Progressing Goal 4:: Patient will increase her ability to ambulate with cane from 10-15 minutes to 20 minutes. Goal Time Frame: 4-6 Weeks Goal Progress: Progressing Goal 5:: Pa tient will be able to sleep at least 6 hours each night without pain medication. Goal Time Frame: 4-6 Weeks Goal Progress: Progressing Goal 6:: Patient will increase hip strength 4+/5 to improve ability to complete ADLs and gait. Goal Time Frame: 4-6 Weeks Goal Progress: Progressing Anticipated Interventions Patient/Client Instruction: Educate patient on: Condition, Plan of Care For the Purpose of:: To decrease pain, To increase ROM, To improve ability to perform ADL's, To increase tolerance to activity/condition/position, To improve gait and locomotor functions, To improve tolerance to ADL's Thera peutic Exercise to Include: Strength training, Endurance training, Postural training, Flexibilty training, In an aquatic setting, Active ROM, Dynamic Lumbar Stabilization For the Purpo se of:: To decrease pain, To decrease swelling/inflammation, To increase ROM, To increase flexibility/ROM, To improve endurance, To improve safety with gait, To improve ability to perform tasks related to life management IF ES: Yes Cryotherapy (ice pack, ice massage): Yes Thermo therapy (hot pack): Yes Ultrasound (thermal/non thermal): Yes For the Purpose of:: To decrease pain, To decrease swelling/in flammation, To increase ROM, To improve health of tissue, To decrease soft tissue restriction Please do not hesitate to contact me at [phone] by phone or if you have questions or concerns regarding this new plan of care! Sincerely, Nghia Willis PT, <Electronically signed by Nghia Willis PT, Cert. MDT, OCS> 06/19/17 1533 CC: Chetan Medina MD; Veronica flowers DO WENCESLAO Signed For Medicare only, by signing this I certify the plan of care. Physicians Signature Date 09-Jun-2017 L/S Spine Comp/w Bending Views Result: Comments: See Note; NOTES: [facility] Imaging Services [address] [place] [address] [place] 4d L/S Spine Comp/w Bending Views MR#: [id number] Acct: [id number] Name: DAVE LING Rep #: [id number] : 1950 F 66 From: Ronnie Bradford MD PCP: Veronica Oquendo DO Status: REG CLI Study: L/S Spine Comp/w Bending Views Date of Exam: 06/09/17 Exam# [id number] Ordering Dr: Alicia Chirinos MD STUDY: X-RAY - LUMBAR SPINE REASON FOR EXAM: Female, 66 years old. Low back pain TECHNIQUE: 4 view(s) of the lumbar spine were obtained. COMPARISON: X-rays of the lumbar spine on April 302015 FINDINGS: Normal lumbar lordosis. There is mild levoscoliosis. Status post posterior and anterior fusion at L4, L5 and S1 with posterolateral bony fusion an d laminectomy at L4-L5. The hardware is intact and in proper position. There are no signs of instability since last examination. There is atherosclerotic calcification of the abdominal aorta without a demonstrated aneurysm. RAD/L/S Spine Comp/w Bending Views IMPRESSION: Status post an anterior posterior fusion at L4-5 and L5-S1. Status post astorga inectomy at L4-L5 Stable since last examination.. Mild levoscoliosis Electronically Signed: Ronnie Bradford MD, FACR at 13:30 EDT , Service support , Fax CC: Tia Chirinos M.D.; Veronica Oquendo DO [employer] Swimming [employer] Installer: Signed 26-May-2017 Re-Evaluation - PT (1) Result: Comments: See Note; NOTES: [facility] [address] [place] [address] Fax [facility] MR#: [id number] Acct: [id number] Name: SUGEY LING Rep #: [id number] : 1950 66 From: Nghia Willis PT, Cert. MDT, OCS Referring Dr.: Chetan Medina MD Stat us: REG RCR Insurance: MEDICARE PART A B WPS FOR LIFE Chetan Medina, It has been my pleasure to treat SUGEY LING over the last 11 visits for Back and Hip pain. Please see the progress note below for an update on the physical therapy plan of care! Subjective: Pt reports that her back and leg feel stiff and painful in the morning. She typically ices her low back/hip each morning to loosen things up when she wakes up. She states she is able to lay on her back okay, she can walk somewhat farther now than she was able to do. She states her sleep has improved some, wakes up after 5 hours bu t can go back to sleep. Objective/Function: POSTURE: FLEXED FORWARD ROUNDED SHOULDERS, FORWARD HEAD. GAIT: shifted left to avoid pain on right side, leans on cane. ROM: LUMBAR FLEXION- NO LOSS, PAINFUL BEGINNING OF MOTION, EXTENSION- MODERATE LOSS, NO PAIN, SIDE BENDING R- MAJOR LOSS, PAINFUL, SIDE BENDING L- MINIMAL LOSS, NO PAIN. MMT: Hip flexion- B-4/5, Knee flexion- B-4/5, knee extension- 4/5, DF- 5/5 Plan Plan: Cont. POC Goals Goal 1:: Independent with HEP Goal Time Frame: 2-4 Weeks Goal Progress: Progressing Goal 2:: Patient will increase ROM of the lumbar spine to no loss or minimal loss to improve ability to complete ADLs. Goal Time Frame: 2-4 Weeks Goal Progress: Progressing Goal 3:: Patient will decrease pain by 50% of greater to improve ability to complete ADLs and gait pattern. Goal Time Frame: 2-4 Weeks Goal Progress: Progressing Goal 4:: Patient will increase her ability to ambulate with cane from 10-15 minutes to 20 minutes. Goal Time Frame: 2-4 Weeks Goal Progress: Progressing Goal 5:: Patient will be able to sleep at least 6 hours each night without pain medication. Goal Time Frame: 2-4 Weeks Goal Progress: Progressing Goal 6:: Patient will increase hip strength from 3+/5 to 4+/5 to improve ability to complete ADLs and gait. Goal Time Frame: 2-4 Weeks Goal Progress: Progressing Anticipated Interventions Patient/Client Instruction: Educate patient on: Condition, Plan of Ca re For the Purpose of:: To decrease pain, To increase ROM, To improve ability to perform ADL's, To increase tolerance to activity/condition/position, To improve gait and locomotor functions, To improve tolerance to ADL's Therapeutic Exercise to Include: Strength training, Endurance training, Postural training, Flexibilty training, Active ROM, Dynamic Lumbar Stabilization For the Purpose of:: To decrea se pain, To decrease swelling/inflammation, To increase ROM, To increase flexibility/ROM, To improve endurance, To improve safety with gait, To improve ability to perform tasks related to life managemen t IF ES: Yes Cryotherapy (ice pack, ice massage): Yes Thermo therapy (hot pack): Yes Ultrasound (thermal/non thermal): Yes For the Purpose of:: To decrease pain, To decrease swelling/inflammation, To in crease ROM, To improve health of tissue, To decrease soft tissue restriction Please do not hesitate to contact me at [phone] by phone or if you have questions or concerns regardin g this new plan of care! Sincerely, Nghia Willis PT, <Electronically signed by Nghia Willis PT, Cert. T, [facility]> 05/26/17 1440 CC: Chetan Medina MD; Veronica Oquendo DO DD: WENCESLAO Signed For Medicare only, by signing this I certify the plan of care. Physicians Signature Date 12-May-2017 Dexa Bone Density Study (HP) Result: Comments: See Note; NOTES: [facility] Imaging Services [address] [place] [address] [place] 4d Dexa Bone Density Study (HP) MR#: [id number] Acct: [id number] Name: SUGEY LING Rep #: [id number] : 1950 F 66 From: Anam Larios MD PCP: Veroinca Oquendo DO Status: REG CLI Study: Dexa Bone Density Study (HP) Date of Exam: 05/12/17 Exam# [id number] Ordering Dr: Veronica Bridges DO STUDY: DUAL ENERGY X-RAY ABSORPTIOMETRY / DXA REASON FOR EXAM: Female, 66 years old. The patient is postmenopausal. Loss of height. TECHNIQUE: Bone Mineral Density (BMD) measurements of lumbar spine and bilateral hips were obtained. COMPARISON: Comparison is made with prior study dated May 08, 2015. FINDINGS: Lumbar Spine (L1-L4): g/cm2 (1.218) / T-score (0.2) / Z-score (1.8) Findings are suggestive of normal bone density with a low fracture risk. Left Femur Total: g/cm2 (1.003) / T-score (0.0) / Z- score (1.2) Left Femoral Neck: g/cm2 (0.810 ) / T-score (-1.6) / Z-score (-0.1) Right Femur Total: g/cm2 (0.935) / T-score (-0.6) / Z-score (0.7) Right Femoral Neck: g/cm2 (0.885) / T-score (-1.1) / Z- score (0.4) The T-Scores on the most recent prior examination were: Lumbar Spine (L1-L4): There has been improvement of bone density since the previous examination. Left Femur Total: which represents an improvement of 5.0%. Right Femur Total: w hich represents an improvement of 1.3%. HPBD/Dexa Bone Density Study (HP) IMPRESSION: The patient is considered osteopenic as outlined below acco rding to World Gerem[place] Organization (WHO) criteria with a moderate fracture risk. There has been improvement of bone density since the previous examination. Reference Information: The T-score is the number of standard deviations above or below the standard which is normal for young adults at their peak bone mineral density. The World Health Organization (WHO) interp rets the T-scores as follows: Above -1 Normal bone density Between -1 and -2.5 Osteopenia Equal to / or below -2.5 Osteoporosis As a practical clinical guideline, osteopenia may be graded as follows: Mild -1 through -1.5 Moderate -1.6 through -2.0 Severe -2.1 through -2.4 The Z-score is the number of standard deviations above or below age-matched controls. A Z-score of less than -1.5 would be consi dered abnormal. References: 1. NIH Osteoporosis and Related Bone Diseases http://www.osteo.org 2. International Society for Clinical Densitometry http://www.iscd.org 3. National Osteoporosis Foundation http://www.nof.org Electronically Signed: Anam Larios MD at 12:45 EDT Tel [phone], Service support , CC: Veronica Oquendo DO [employer]imming [employer] Installer: Signed 12-May-2017 SCREENING MAMM (CAD), BILAT Result: Comments: See Note; NOTES: [facility] Imaging Services [address] [place] [address] [place] 4d SCREENING MAMM (CAD), BILAT MR#: [id number] Acct: [id number] Name: SUGEY LING Rep #: [id number] : 1950 F 66 From: Royce Phipps MD PCP: Veronica Oquendo DO Status: REG CLI Study: SCREENING MAMM (CAD), BILAT Date of Exam: 05/12/17 Exam# [id number] Ordering Dr: Bren Oquendo DO MAMMOGRAPHY - BILATERAL SCREENING REASON FOR EXAM: Female, 66 years old. Routine annual screening examination. PERTINENT HISTORY: NO FAM HX NO SX KERATOSIS MARKED PT UNABLE TO TOLERATE MUCH COMPRESSION TECHNIQUE: Digital bilateral breast arie (3D mammographic acquisition) in the CC and MLO projections. 2-D mediolateral oblique (MLO) and craniocaudad (CC) views of both breasts were obtaine d. CAD: Full Field Digital Mammography with Computer Added Detection was performed. COMPARISON: May 09 2016 9:07AM and mammogram from May 08 2015 10:25AM FINDINGS: Breast Composition: The breasts are almost entirely fatty. There are no dominant masses or suspicious calcifications. No other significant abnormalities are identified. ____ HPBI/SCREENING MAMM (CAD), BILAT IMPRESSION: Stable bilateral screening mammogram. Yearly follow-up mammogram recommended. (A) ASSESSMENT CATEGORY: BIRADS Category 2: Benign. A letter regarding these results will be sent to the patient by the facility within 30 days. Approximately 10% of breast cancers are not detected by mammography. A normal mammogram should not delay biopsy of a clinically suspicious abnormality. [id number] Electronically Signed: Royce Phipps MD at 13:24 EDT Tel , Service support [phone], CC: Veronica Oquendo DO [employer] Swimming [employer] Installer: Signed 30-Apr-2017 Inital Evaluation (1) - PT Result: Comments: See Note; NOTES: [facility] [place] [address] Fax REHABILITATION SERVICES INITIAL EVALUATION MR#: [id number] Acct: [id number] Name: SUGEY LING Rep #: [id number] : 1950 66 From: Nghia Willis PT, Cert. T, OCS Referring Dr.: Chetan Medina MD Status: REG RCR Insurance: MEDICARE PART A B WPS FOR LIFE Patient's Visit Information SUGEY LING is a 66 year old F referred to Physical Therapy by Chetan Medina with a diagnosis of Back and Hip pain. Date of Evaluat ion: 04/29/17 Physical Therapist: Nghia Willis PT, - Visit Plan Frequency: 3x /Week Duration: 3 Weeks Plan: LE strengthening exercises. postural exercises. DLS. Modalities as needed - Subjective S ubjective: Patient presents with low back and hip pain. Pain starts in the right side back and goes down the back/side of the leg and around the knee. Also has numbness and tingling. Has been dealing wi th back pain since last summer (2015). Had two spinal fusions, two years ago and 12 years ago. She fell and broke her arm last summer and had a compression. Had physical therapy after the last fusion. H ad an epidural injection in March that helped alot. Has another one scheduled tomorrow. Worse- walking, sitting to long, standing to long no more than 10-15 minutes, laying down has to be on left side. Be tter- has to adjust positions to make her back feel better. Can sleep with the pain pills but without sleeping is difficult. Sneezing and coughing cause increased pain. If she moves quick or bumps into anything it causes increased pain. no bowel/bladder problems. Physical therapy went well in [place], she was able to walk again. Social: . Vocation: retired. Walks with a cane, started using a c ane after the second surgery, has a motorized cart/scooter for long distance walking - Pain Right Back Pain Intensity (Out of 10): 9 Pain Intensity Range: 10 Right Lower Extremity Pain Intensity (Out of 10): 5 Pain Intensity Range: 10 Comment: gets worse when she is up moving around. - Objective Posture: sitting forward in chair, flexed posture. Standing: slight flexed posture, leaning to the left side. Neuro: Myotomes: intact bilaterally in LE. Reflexes: 1/3. Palpation: tenderness, painful at right ASIS, atrophy of quads of right side. Lumbar ROM: Flexion- minimal loss, Extension- moderate loss and painful, Side bending- minimal loss, painful to the right side. MMT: Hip flexion- R- 3+/5, L 4/5 Knee Extension- R-4/5, L-4/5, Knee flexion- R-3+/ 5, L-4/5 PF-R-5/5, DF- R-5/5, L-5/5. Hip ROM- R- WNL all movements. Leg length- MM equal on right and left. - Special Tests L/S Left Straight Leg Raise: Negative L/S Right Straight Leg Raise: Negative R Hip Scour: Negative R Hip ANETA - Intraarti cular Pathology: Negative - Goals Goal 1:: Independent with HEP Goal Time Frame: 2-4 Weeks Goal 2:: Patient will increase ROM of the lumbar spine to no loss or minimal loss to improve ability to comple te ADLs. Goal Time Frame: 2-4 Weeks Goal 3:: Patient will decrease pain by 50% of greater to improve ability to complete ADLs and gait pattern. Goal Time Frame: 2-4 Weeks Goal 4:: Patient will increase her ability to ambulate with cane from 10-15 minutes to 20 minutes. Goal Time Frame: 2-4 Weeks Goal 5:: Patient will be able to sleep at least 6 hours each night without pain medication. Goal Time Frame : 2-4 Weeks Goal 6:: Patient will increase hip strength from 3+/5 to 4+/5 to improve ability to complete ADLs and gait. Goal Time Frame: 2-4 Weeks - Rehabilitation Potential Physical Therapy Diagnosis: Patient presents with back pain that radiates into her buttock and leg with decreased lumbar ROM and strength of the lower extremity. 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 Rehabilitation Potential: Good - Anticipated Interventions Patient/Client Instruc tion: Educate patient on: Condition, Plan of Care For the Purpose of:: To decrease pain, To increase ROM, To improve ability to perform ADL's, To increase tolerance to activity/condition/position, To im prove gait and locomotor functions, To improve tolerance to ADL's Therapeutic Exercise to Include: Strength training, Endurance training, Postural training, Flexibilty training, Active ROM, Dynamic Lumb ar Stabilization For the Purpose of:: To decrease pain, To decrease swelling/inflammation, To increase ROM, To increase flexibility/ROM, To improve endurance, To improve safety with gait, To improve samara lity to perform tasks related to life management IF ES: Yes Cryotherapy (ice pack, ice massage): Yes Thermo therapy (hot pack): Yes Ultrasound (thermal/non thermal): Yes For the Purpose of:: To decrease pain, To decrease swelling/inflammation, To increase ROM, To improve health of tissue, To decrease soft tissue restriction Thank you for the opportunity to evaluate your patient. For Medicare and Medicare HMO plans, please review the plan of care and approve it. It will need to be FAXED BACK to us at [phone] for Medicare purposes. Please let me know if there are questions or concerns rega rding this plan of care. Physician Signature: Date: <Electronically signed by Nghia Willis PT, Cert. T, OCS> 04/30/17 1733 CC: Chetan Medina MD; Veronica Oquendo DO KERRIA Signed For Medicare only, by signing this I certify the plan of care. Physicians Signature Date 24-Apr-2017 Spine Lumbar (Routine) Result: Comments: See Note; NOTES: [facility] Imaging Services [address] [place] [address] [place] 4d Spine Lumbar (Routine) MR#: [id number] Acct: [id number] Name: SUGEY LING Devin Rep #: [id number] : 1950 F 66 From: Ronnie Bradford MD PCP: Veronica Oquendo DO Status: REG CLI Study: Spine Lumbar (Routine) Date of Exam: 04/24/17 Exam# [id number] Ordering Dr: Chetan Medina MD UDY: MRI LUMBAR SPINE WITHOUT CONTRAST REASON FOR EXAM: Female, 66 years old. Prior lumbar surgery. Back pain, right hip pain TECHNIQUE: Standardized fat and water weighted pulse sequences were obtain ed in the sagittal and axial planes. COMPARISON: Prior MRI of the lumbar spine on April 10, 2010 FINDINGS: T12-L1: Normal endplates. Normal disc height, hydration an d morphology. Normal bilateral facet joints. Normal central canal and bilateral lateral recesses. Normal bilateral intervertebral neural foramina. Normal lumbar lordosis. There is levoscoliosis. Normal conus medullaris that terminates at the L1-L2 level L1-2: Normal endplates. Normal disc height, hydration and morphology. Normal bilateral facet joints. Normal central canal and bilateral lateral rece sses. Normal bilateral intervertebral neural foramina. L2-3: Normal endplates. Normal disc height, hydration and morphology. There is mild bilateral facet arthrosis. Normal central canal and bilateral lateral recesses. Normal bilateral intervertebral neural foramina. L3-4: There is mild endplate spondylosis. There is disc desiccation with disc space narrowing. There is an annular bulge and bilateral facet arthrosis. Normal spinal canal. There is right foraminal stenosis with impingement of the L3 nerve root L4-5: Status post anterior and posterior fusion. There is laminar screws are noted. There appeared to be in the proper position. There is bilateral facet arthrosis. Normal spinal canal. Normal visualized neural foramina. Status post laminectomy. There is a postlaminectomy seroma extending fr om L4 to L5 measuring approximately 5.3 x 3.4 cm in vertical and transverse diameter (axial T2 series 6 image 6). L5-S1: Status post anterior fusion and posterior fusion with translaminar screws. Statu s post laminectomy. Normal spinal canal and visualized neural foramina Normal visualized sacral ala. There are postsurgical changes in the posterior soft tissues. There is mild posterior paraspinal mu scular atrophy. There is atrophy of the left kidney. MRI/Spine Lumbar (Routine) IMPRESSION: Levoscoliosis. Multilevel facet arthrosis. L3-4 sebastian ular bulge with right foraminal stenosis and impingement of the L3 nerve root. Status post anterior and posterior fusion at L4-5 and L5-S1 with laminectomy since the last examination. Postlaminectomy s eroma, as described above Electronically Signed: Ronnie Bradford MD, FACR at 14:33 EDT , Service support , CC: Chetan Medina MD; Veronica Oquendo DO [employer] Installer: Signed 15-Apr-2017 Hips B/L min 2 views w/ Pelvis Result: Comments: See Note; NOTES: [facility] Imaging Services [address] [facility] [facility] [place] [address] [place] 4d Hips B/L min 2 views w/ Pelvis MR#: [id number] Acct: [id number] Name: DAVE LING Rep #: [id number] : 1950 F 66 From: Jeremiah Ramos MD PCP: Veronica Oquendo DO Status: REG CLI Study: Hips B/L min 2 views w/ Pelvis Date of Exam: 04/15/17 Exam# [id number] Ordering Dr: Chetan Hubbard MD STUDY: X-RAY - PELVIS AND BILATERAL HIPS REASON FOR EXAM: Female, 66 years old. Pain TECHNIQUE: Radiological exam, hip, bilateral, with pelvis when performed; 2 views COMPARISON: None. FINDINGS: There is anterior and posterior fusion with laminectomy at the lower lumbar spine. The hips and SI joints are intact. There is no acute fracture. There is no osseous destruction. There is no osteonecrosis. RAD/Hips B/L min 2 views w/ Pelvis IMPRESSION: Status post anterior/posterior fusion/yoly ctomy, lumbar spine Essentially intact hips and SI joints Electronically Signed: Jeremiah Ramos MD at 22:11 EDT Tel , Service support , CC: Chetan Medina MD; Veronica Oquendo DO [employer] Sw[employer] Installer: Signed 16-Jul-2016 Spirometry (11237) Result: 16-Jul-2016 ELECTROCARDIOGRAM, COMPLETE (ECG) (10646) Comments: no new chg cmpared to last ekg Result: [MEASUREMENTS ANALYSIS] Date of Test: 07/16/2016 11:05:02; Heart Rate: 69; ND Interval: 144; QRS: 104; QT Interval: 394; Corrected QT Interval (QTc): 409; P Wave [place]: 56; QRS Wave [place]: 55; T Wave [place] : 90; Blood Pressure: 122/78 [ECG DIAGNOSTIC STATEMENTS] Date of Test: 07/16/2016 11:05:02; Summary: Sinus Rhythm Low voltage in limb leads. - Negative T- waves -Possible Anterior ischemia. ABNORMAL 04-Jul-2016 Knee 4 or More Views Result: Comments: See Note; NOTES: [facility] Imaging Services [address] [place] [address] [place] 4d Knee 4 or More Views MR#: [id number] Acct: [id number] Name: SUGEY LING Rep # : [id number] : 1950 F 65 From: Ivone Guevara MD PCP: Veronica Oquendo DO Status: REG CLI Study: Knee 4 or More Views Date of Exam: 07/04/16 Exam# [id number] Ordering Dr: Kassandra Fortune STUDY: X-RAY - LEFT KNEE REASON FOR EXAM: Female, 65 years old. Anterior left knee pain bruising status post fall 2 days ago2 TECHNIQUE: 4 view(s) of the knee. COMPARISON: April 15, 2016 left knee x-ray FINDINGS: Normal visualized distal femur. Normal visualized proximal tibia and fibula. Normal proximal tibiofibular articulation. There is moderate degenerative arthrosis of the medial femorotibial compartment with moderate joint space narrowing. There is mild degenerative arthrosis of the lateral femorotibial compartment. There is mild degenerative arthrosis of the patello femoral articulation. The soft tissue structures are unremarkable. RAD/Knee 4 or More Views IMPRESSION: Degenerative arthrosis. Electronically Signed: Ivone Guevara MD at 16:23 EDT Tel , Service support [phone], CC: Kassandra Fortune; Veronica Oquendo DO [employer] Installer: Signed 03-Jun-2016 Emergency Department Summary Result: Comments: See Note; NOTES: [facility] Medical Records Department [address] [place] [address] Emergency Department Summary MR#: [id number] Acct: [id number] Name: SUGEY LING Rep #: [id number] : 1950 65 From: Ronaldo Verduzco MD PCP: Veronica Oquendo DO Status: DEP ER DATE OF SERVICE: 06/03/2016 HISTORY OF PRESENT ILLNESS: A 65-year-old woman, who pres ents after a mechanical fall. She states she slipped. She injured her left shoulder. She landed on her knees. She complains of pain, which she localizes to left shoulder. She will not move the left up per extremity secondary to pain. She denies any paresthesia, anesthesia or motor weakness. She denies head trauma. She denies neck pain. PAST MEDICAL HISTORY: Past history of type 2 diabetes; hype rtension; hyperlipidemia; end-stage renal disease, stage II; recurrent aspiration pneumonia; and COPD. PRIMARY CARE PHYSICIAN: Veronica Oquendo DO ORTHOPEDIST: Will Oliveira M.D. PHYSICAL EXAM INATION: VITAL SIGNS: Unremarkable. EXTREMITIES: The patient has pain to palpation over the proximal humerus. Axillary, median, radial and ulnar function intact. Radial pulses are palpable. There is no pain to palpation over the lateral medial epicondyle olecranon process. There is no pain to palpation over the distal radius or ulna. There is no pain to palpation over the carpal bones, metacarpa l bones or phalanges. EMERGENCY DEPARTMENT COURSE: X-ray of the shoulder was obtained, which reveals a nondisplaced impacted fracture at the surgical neck. PLAN: Sling and swathe. Referral to Dr. Will Oliveira. MD Carolyn Ness C: Veronica Reeder MD T: NTS JOB: [id number] 06/03/16 1307 <Electronically signed by Ronaldo Verduzco MD> Date Ronaldo Verduzco MD Cosigner Signature (If Indicated): Date CC: Veronica Oquendo DO; Will Oliveira MD Date Dictated: 06/03/16 1232 Date Transcribed: 06/03/16 1232 [employer]imming [employer] Installer: Signed 03-Jun-2016 Discharge Instruction Result: Comments: See Note; NOTES: [facility] Medical Records Department [address] [place] [address] Discharge Instruction 06/03/16 1230 MR#: [id number] Acct: [id number] Name: SUGEY LING Rep #: [id number] : 1950 65 From: Ronaldo Verduzco MD PCP: Veronica Oquendo DO Status: REG ER ED Disposition - Plan for ED Patient: Disposition: Home or Assisted Living [facility] Complaint: Fall Instructions: ED Fracture, Shoulder, ED Sling And Swathe Prescriptions: Oxycodone HCl/Acetaminophen [Percocet 5/325] 1 tablet PO Q4H PRN PRN #30 tablet PRN Reason: Pain Referra ls: Veronica Oquendo DO [Primary Care Provider] - Will Oliveira MD [STAFF PHYSICIAN] - 1 Week What to do if you have Problems For any increased pain, shortness of breath, bleeding, nausea or vo miting, chest pain, or any unexpected problems, contact your doctor. Call [facility] ([phone]) or report to the closest Emergency Room. Call 911 if necessary. 06/03/16 1234 <El ectronically signed by Ronaldo Verduzco MD> Date Ronaldo Verduzco MD Cosigner Signature (If Indicated): Date CC: Veronica Oquendo DO 03-Jun-2016 Shoulder min 2 Views Result: Comments: See Note; NOTES: [facility] Imaging Services [address] [facility] [place] [address] [place] 4d Shoulder min 2 Views MR#: [id number] Acct: [id number] Name: SUGEY LING Rep #: [id number] : 1950 F 65 From: Anam Larios MD PCP: Veronica Oquendo DO Status: REG ER Study: Shoulder min 2 Views Date of Exam: 06/03/16 Exam# [id number] Ordering Dr: Ronaldo Verduzco MD STUDY: X-RAY - LEFT SHOULDER REASON FOR EXAM: Female, 65 years old. Left shoulder pain following a fall. TECHNIQUE: 4 view(s) of the shoulder. COMPARISON: None. FINDINGS: Normal glenohumeral articulation. There is hypertrophic osteoarthrosis of the acromioclavicular joint with inferior osseous spur formation. Normal acromion. There is a n ondisplaced impacted fracture of the surgical neck of the humerus. The soft tissue structures are unremarkable. Normal visualized pulmonary apex. IMPRESSION: I suspect a nondisplaced impacted fracture of the surgical neck of the humerus. Electronically Signed: Anam Larios MD at 12:42 EDT Tel [phone], Service support [phone], RAD/Shoulder min 2 Views IMPRESSION: I suspect a nondisplaced impacted fracture of the surgical neck of the humerus. Electronically Signed: Anam rinaldi MD at 12:42 EDT Tel [phone], Service support [phone], CC: Veronica Oquendo DO; Ronaldo Verduzco MD [employer] Installer: Signed 13-May-2016 L/S Spine Min 4 Views Result: Comments: See Note; NOTES: [facility] Imaging Services [address] [place] [address] [place] 4d L/S Spine Min 4 Views MR#: [id number] Acct: [id number] Name: SUGEY LING Rep #: [id number] : 1950 F 65 From: Anam Larios MD PCP: Veronica Oquendo DO Status: REG CLI Study: L/S Spine Min 4 Views Date of Exam: 05/13/16 Exam# [id number] Ordering Dr: Chetan Luo MD STUDY: X-RAY - LUMBAR SPINE REASON FOR EXAM: Female, 65 years old. Chronic back pain. TECHNIQUE: 5 view(s) of the lumbar spine were obtained including oblique views. COMPARISON : None FINDINGS: Normal lumbar lordosis. There is a levoscoliosis of the lumbar spine. There is a grade 2 anterior listhesis of L5 on S1. The patient is status post interpedicular screw and francoise fixation at the L4-L5 and L5-S1 levels. Prosthetic discs are seen. There is evidence of disc space narrowing. Posterior laminectomy. There is atherosclerotic calci fication of the abdominal aorta without a demonstrated aneurysm. IMPRESSION: Status post laminectomy and fusion at the L4-L5 and L5-S1 levels with prosthetic di sc insertion. Grade 2 anterior listhesis of L5 on S1. Electronically Signed: Anam Larios MD at 8:31 EDT Tel [phone], Service support [phone], RAD/L/S Spine Min 4 Views IMPRESSION: Status post laminectomy and fusion at the L4-L5 and L5-S1 levels with prosthetic disc insertion. Grade 2 anterior listhesis of L5 on S1. Electron ically Signed: Anam Larios MD at 8:31 EDT Tel [phone], Service support [phone], CC: Chetan Medina MD; Veronica Oquendo DO [employer] Installer: Signed 13-May-2016 Chest WITH Contrast Result: Comments: See Note; NOTES: [facility] Imaging Services [address] [place] [address] [place] 4d Chest WITH Contrast MR#: [id number] Acct: [id number] Name: Sissy LING [facility] A Rep #: [id number] : 1950 F 65 From: Anam Larios MD PCP: Veronica Oquendo DO Status: REG CLI Study: Chest WITH Contrast Date of Exam: 05/13/16 Exam# [id number] Ordering Dr: Veronica Oquendo DO STUDY: CT CHEST WITH CONTRAST REASON FOR EXAM: Female, 65 years old. History of sarcoidosis. Chronic renal disease stage IV. RADIATION DOSAGE (If Supplied By Facility): CTDIvol = ( 16.25 ) mGy, DLP = ( 678.73 ) mGycm TECHNIQUE: Transaxial imaging was performed following intravenous administration of 75 ml of Isovue 300 contrast material. Multiplanar coronal and sagittal dakota ges were reformatted. Individualized dose optimization techniques were used for this CT. COMPARISON: Comparison is made with prior study dated April 09, 2014. FI NDINGS: 2 mm hypodensity is seen in the lower pole of the right lobe of the liver. Mild increased markings at the lung apices more prominent in the left upper lobe. This most likely represent scarri ng. This is essentially unchanged. Increased linear markings with bronchiectasis is also seen in the medial aspect of the lingular segment of the left upper lobe. At this time however, there is evide nce of airspace disease in the superior segment of the right lower lobe. Followup is recommended. Calcified granuloma in the lateral aspect of the right middle lobe. Mild increased markings at the amanda ng bases suggestive of scarring. There is no demonstrated pleural abnormality. Normal heart and pericardium. Calcified mediastinal and bilateral hilar lymphadenopathy. Normal hilar regions. Normal enhanced pulmonary arteries. There is atherosclerotic calcification of the aortic arch with tortuosity and elongation of the aortic arch and descending thoracic aorta. There are multi-level degener ative changes of the thoracic spine. Diffuse fatty infiltration of the liver. IMPRESSION: Stable scarring as described. New airspace disease in the superior se gment of the right lower lobe. Followup is recommended. Fatty infiltration of the liver. Electronically Signed: Anam Larios MD at 8:42 EDT Tel [phone], Service support [phone], CC: Veronica Oqunedo DO [employer] Installer: Signed 09-May-2016 Bilat Scrn Digital AND CAD Result: Comments: See Note; NOTES: [facility] Imaging Services [address] [place] [address] [place] 4d Bilat Scrn Digital AND CAD MR#: [id number] Acct: [id number] Name: SUGEY LING Rep #: [id number] : 1950 F 65 From: Anam Larios MD PCP: Veronica Oquendo DO Status: REG CLI Study: Bilat Scrn Digital AND CAD Date of Exam: 05/09/16 Exam# [id number] Order ing Dr: Veronica Oquendo DO MAMMOGRAPHY - BILATERAL SCREENING REASON FOR EXAM: Female, 65 years old. Routine annual screening examination. PERTINENT HISTORY: Non-contributory. TECHNIQUE: Darcyi julius bilateral breast tomosynthesis (3-D mammographic acquisition) in the CC and MLO projections. Synthesized 2-D images (C-View reconstruction from tomosynthesis acquisition) providing bilateral breas t CC and MLO views. Mediolateral oblique (MLO) and craniocaudad (CC) views of both breasts were obtained. CAD: Full Field Digital Mammography with Computer Added Detection was performed. COMPARISON : Comparison is made with prior examination dated May 08, 2015 and September 16, 2013. FINDINGS: Breast Composition: The breasts are almost entirely fatty. There are no dominant masses or suspicious calcifications. Stable small lymph nodes in the axillary region bilaterally. No other significant abnormalities are identified. There has been no significant ch carmen since the prior study. IMPRESSION: Stable bilateral screening mammogram. Yearly follow-up mammogram recommended. (A) ASSESSMENT CATEGORY: BIRADS Category 1: Negative. A letter regarding these results will be sent to the patient by the facility within 30 days. Approximately 10% of breast cancers are not detected b y mammography. A normal mammogram should not delay biopsy of a clinically suspicious abnormality. [id number] Electronically Signed: Anam Larios MD at 10:46 EDT Tel [phone], Se rvice support [phone], CC: Veronica Oquendo DO [employer] Installer: Signed 09-May-2016 Chest PA and Lateral Result: Comments: See Note; NOTES: [facility] Imaging Services [address] [place] [address] [place] 4d Chest PA and Lateral MR#: [id number] Acct: [id number] Name: SUGEY LING Rep #: [id number] : 1950 F 65 From: Anam Larios MD PCP: Veronica Oquendo DO Status: REG CLI Study: Chest PA and Lateral Date of Exam: 05/09/16 Exam# [id number] Ordering Dr: Veronica Davidson DO STUDY: X-RAY CHEST REASON FOR EXAM: Female, 65 years old. Hypercalcemia. TECHNIQUE: PA and lateral views of the chest. COMPARISON: None. FINDINGS: Calcified granulomas. Mild increased markings at the left lung base suggestive of linear atelectasis and/or possible scarring. Focal increased markings in the right midlung. Followup is re commended. There is no demonstrated pleural abnormality. Normal size heart. Normal mediastinum and arthur. Normal visualized pulmonary arteries. There is atherosclerotic calcification of the aortic a rch with tortuosity. There is demineralization of the osseous structures. Increased kyphosis. Normal visualized ribs, clavicles, and shoulders. There is no demonstrated abnormality of the visualize d soft tissue structures of the upper abdomen. IMPRESSION: Focal area of increased markings in the right midlung. Followup is recommended. Electronically Sign ed: Anam Larios MD at 9:41 EDT Tel [phone], Service support [phone], RAD/Chest PA and Lateral IMPRESSION: Focal area of increased markings in the right midlung. Followup is recommended. Electronically Signed: Anam Larios MD at 9:41 EDT Tel [phone], Service support [phone], CC: Veronica Oquendo DO [employer] Installer: Signed 15-Apr-2016 Knee 4 or More Views Result: Comments: See Note; NOTES: [facility] Imaging Services [address] [place] [address] [place] 4d Knee 4 or More Views MR#: [id number] Acct: [id number] Name: SUGEY LING Rep #: [id number] : 1950 F 65 From: Royce Phipps MD PCP: Veronica Oquendo DO Status: REG CLI Study: Knee 4 or More Views Date of Exam: 04/15/16 Exam# [id number] Ordering Dr: Tad Oquendo DO STUDY: X-RAY - LEFT KNEE REASON FOR EXAM: Female, 65 years old. knee pain TECHNIQUE: 4 view(s) of the knee. COMPARISON: None. FINDINGS: Yola l visualized distal femur. Normal visualized proximal tibia and fibula. Normal proximal tibiofibular articulation. There is severe degenerative arthrosis of the medial femorotibial compartment with severe joint space narrowing. There is mild degenerative arthrosis of the lateral femorotibial compartment. There is severe degenerative arthrosis of the patellofemoral articulation. The soft tissue structures are unremarkable. IMPRESSION: Degenerative arthrosis. Electronically Signed: Royce Phipps MD at 10:30 EDT Tel , Servic e support [phone], RAD/Knee 4 or More Views IMPRESSION: Degenerative arthrosis. Electronically Signed: Royce Phipps MD at 10:30 EDT Tel , Service support [phone], CC: Veronica Oquendo DO [employer] Installer: Signed 15-Apr-2016 Knee 4 or More Views Result: Comments: See Note; NOTES: [facility] Imaging [facility] [address] [address] [place] 4d Knee 4 or More Views MR#: [id number] Acct: [id number] Name: SUGEY LING Rep #: [id number] : 1950 F 65 From: Royce Phipps MD PCP: Veronica Oquendo DO Status: REG CLI Study: Knee 4 or More Views Date of Exam: 04/15/16 Exam# [id number] Ordering Dr: Tad Oquendo DO STUDY: X-RAY - RIGHT KNEE REASON FOR EXAM: Female, 65 years old. Knee pain TECHNIQUE: 4 view(s) of the knee. COMPARISON: None. FINDINGS: Norm al visualized distal femur. Normal visualized proximal tibia and fibula. Normal proximal tibiofibular articulation. There is moderate degenerative arthrosis of the medial femorotibial compartment wi th moderate joint space narrowing. There is mild degenerative arthrosis of the lateral femorotibial compartment. There is mild degenerative arthrosis of the patellofemoral articulation. The soft tis judit structures are unremarkable. IMPRESSION: Degenerative arthrosis. Electronically Signed: Royce Phipps MD at 10:39 EDT Tel , Ser vice support [phone], RAD/Knee 4 or More Views IMPRESSION: Degenerative arthrosis. Electronically Signed: Royce Phipps MD at 10:39 EDT Te l , Service support [phone], CC: Veronica Oquendo DO [employer] Installer: Signed 30-Jul-2015 Spirometry (13783) Result: 19-Jul-2015 Spirometry (06857) Comments: mild obstruction - asx Result: 08-May-2015 Bilat Scrn Digital AND CAD Result: Comments: See Note; NOTES: [facility] Imaging Services [address] [place] [address] Breast Imaging Report MR#: [id number] Acct: [id number] Name: SUGEY LING Rep #: [id number] : 1950 F 64 From: Anam Larios MD PCP: Veronica Oquendo DO Status: REG CLI Study: Bilat Scrn Digital AND CAD Date of Exam: 05/08/15 Exam# [id number] Ordering Dr: Pippa Oquendo DO MAMMOGRAPHY - BILATERAL SCREENING REASON FOR EXAM: Female, 64 years old. Routine annual screening examination. PERTINENT HISTORY: Non- contributory. TECHNIQUE: Digital examination. Medio lateral oblique (MLO) and craniocaudad (CC) views of both breasts were obtained. CAD: CAD was performed on this study. COMPARISON: Comparison is made with prior examination dated September 16, 2013 a nd May 22, 2011. FINDINGS: Breast Composition: There are scattered areas of fibroglandular density. There are no dominant masses or suspicious calcifications. No other significant abnormalities are identified. There has been no significant change since the prior study. IMPRESSION: Stable bilateral screening mammogram . Yearly follow-up recommended. (A) ASSESSMENT CATEGORY: BIRADS Category 2: Benign. A letter regarding these results will be sent to the patient by the facility within 30 days. Approximately 10% of breast cancers are not detected by mammography. A normal mammogram should not delay biopsy of a clinically suspicious abnormality. Electronically Signed: Jj Larios MD at 10:50 EDT Tel [phone], Service support [phone], CC: Veronica Oquendo DO [employer] Installer: Signed 08-May-2015 Dexa Bone Density Study (HP) Result: Comments: See Note; NOTES: [facility] Imaging Services [address] [place] [address] Bone Density Report MR#: [id number] Acct: [id number] Name: SUGEY LING Rep #: [id number] : 1950 F 64 From: Anam Larios MD PCP: Veronica Oquendo DO Status: REG CLI Study: Dexa Bone Density Study (HP) Date of Exam: 05/08/15 Exam# [id number] Ordering Dr: Pippa Oquendo DO STUDY: DUAL ENERGY X-RAY ABSORPTIOMETRY / DXA REASON FOR EXAM: Female, 64 years old. The patient is postmenopausal. Uses steroid inhaler. TECHNIQUE: Bone Mineral Density (BMD) measurement s of lumbar spine and bilateral hips were obtained. COMPARISON: Comparison is made with prior study dated May 22, 2011. FINDINGS: Lumbar Spine (L1-L4): g/cm2 (1.001) / T-score (-1.4) / Z-score (0.2) Findings are suggestive of osteopenia with a low fracture risk. Left Femur Total: g/cm2 (0.955) / T-score (-0.4) / Z-score (0.7) Left Femoral Neck: g/cm2 (0 .823) / T-score (-1.5) / Z-score (-0.1) Right Femur Total: g/cm2 (0.923) / T- score (-0.7) / Z-score (0.5) Right Femoral Neck: g/cm2 (0.827) / T-score (-1.5) / Z-score (-0.1) The T-Scores on the most recent prior examination were: Lumbar Spine (L1-L4): There has been worsening of bone density since the previous examination. Left Femur Total: which represents a worsening of 4.8%. Right Femur T otal: which represents a worsening of 4.2%. IMPRESSION: The patient is considered osteopenic as outlined below according to World Gerem[place] Organization (WHO) criter ia with a moderate fracture risk. There has been worsening of bone density since the previous examination. Reference Information: The T-score is the number of s tandard deviations above or below the standard which is normal for young adults at their peak bone mineral density. The World Health Organization (WHO) interprets the T-scores as follows: Above -1 Normal bone density Between -1 and -2.5 Osteopenia Equal to / or below -2.5 Osteoporosis As a practical clinical guideline, osteopenia may be graded as follows: Mild -1 through -1.5 Moderate -1.6 through -2.0 Severe -2.1 through -2.4 The Z-score is the number of standard deviations above or below age-matched controls. A Z-score of less than -1.5 would be considered abnormal. References: 1 . NIH Osteoporosis and Related Bone Diseases http://www.osteo.org 2. International Society for Clinical Densitometry http://www.iscd.org 3. National Osteoporosis Foundation http://www.nof.org Electr onically Signed: Anam Larios MD at 15:32 EDT Tel [phone], Service support [phone], CC: Veronica Oquendo DO [employer]imming [employer] Installer: Signed 27-Apr-2015 Chest PA and Lateral Result: Comments: See Note; NOTES: [facility] Imaging Services [address] [place] [address] Radiology Report MR#: [id number] Acct: [id number] Name: SUGEY LING Rep #: [id number] : 1950 F 64 From: Lilian Dominguez MD PCP: Veronica Oquendo DO Status: REG CLI Study: Chest PA and Lateral Date of Exam: 04/27/15 Exam# [id number] Ordering Dr: Veronica Oquendo DO STUDY : X-RAY CHEST REASON FOR EXAM: Female, 64 years old. Cough. TECHNIQUE: PA and lateral views of the chest. COMPARISON: Prior portable chest of July 07, 2014 and a prior PA and lateral chest of 2013. FINDINGS: Lung marie are mildly hyperexpanded with stable chronic changes. No new infiltrates. Mild chronic pleural thickening of the lateral left lung base. No evidence of pleural effusion. Normal size heart. Calcified mediastinal and hilar lymph nodes. Normal visualized pulmonary arteries. There is atherosclerotic calcification of the aort ic arch with tortuosity. There is demineralization of the osseous structures. Dextroscoliosis of the thoracic spine. Normal visualized ribs, clavicles, and shoulders. There is no demonstrated abnor mality of the visualized soft tissue structures of the upper abdomen. IMPRESSION: No acute cardiopulmonary findings or changes. Mild hyperexpansion and stable mild chronic lung changes. Stigmata of prior granulomatous disease. Atherosclerosis. Demineralized osseous structures and dextroscoliosis. Electronically Signed: Lilian Dominguez MD at 22:33 EDT , Service support [phone], RAD/Chest PA and Lateral IMPRESSION: No acute cardiopulmonary findings or changes. Mild hyper expansion and stable mild chronic lung changes. Stigmata of prior granulomatous disease. Atherosclerosis. Demineralized osseous structures and dextroscoliosis. Electronically Signed: Lilian Dominguez MD at 22:33 EDT , Service support [phone], CC: Veronica Oquendo DO [employer] Swimming [employer] Installer: Signed 31-May-2014 Foot min 3 Views Result: Comments: See Note; NOTES: [facility] Imaging Services [address] [place] [address] Radiology Report MR#: [id number] Acct: [id number] Name: SUGEY LING Rep #: [id number] : 1950 F 63 From: Cleso Guerrero DO PCP: Veronica Oquendo DO Status: REG CLI Study: Foot min 3 Views Date of Exam: 05/31/14 Exam# [id number] Ordering Dr: Jade Benson MD STUDY: X-RAY - RIGHT FOOT CLINICAL: Female, 63 years old. Foot pain and arthritis. TECHNIQUE: 3 view(s) of the foot. COMPARISON: None. FINDINGS: Moderate calcaneal enth esophyte and plantar spur demonstrated. Mild degenerative changes are present in the intertarsal articulations. Normal metatarsi. There is degenerative arthrosis of the metatarsophalangeal joint o f the hallux with a hallux valgus deformity. Normal tibial and fibular sesamoid bones. There is degenerative arthrosis of the interphalangeal joint of the great toe. Normal phalanges of the great toe . Normal second through fifth metatarsophalangeal joints. Mild degenerative changes are present in the interphalangeal articulations. Osteopenia is present. The soft tissue structures are unremark able. IMPRESSION: Osteopenia with degenerative changes. No acute fracture demonstrated. Electronically Signed: Ashok Gonzalez DO at 9:32 EDT Tel , Service support [phone], CC: Veronica Oquendo DO; Jade Benson MD [employer]er: Signed 31-May-2014 Foot min 3 Views Result: Comments: See Note; NOTES: [facility] Services [address] [place] [address] Radiology Report MR#: [id number] Acct: [id number] Name: SUGEY LING Rep #: [id number] : 1950 F 63 From: Celso Guerrero DO PCP: Veronica Oquendo DO Status: REG CLI Study: Foot min 3 Views Date of Exam: 05/31/14 Exam# [id number] Ordering Dr: Jade Benson MD STUDY: X-RAY - LEFT FOOT CLINICAL: Female, 63 years old. Foot pain TECHNIQUE: 3 view(s) of the foot. COMPARISON: None. FINDINGS: Moderate calcaneal enthesophyte is iden tified with a small plantar spur. Degenerative changes in the inner tarsal articulations as well as the tarsometatarsal articulations is demonstrated. There is demineralization of the metatarsi. Post bunionectomy changes are demonstrated. Normal tibial and fibular sesamoid bones. The base of the proximal phalanx of the great toe appears to be surgically altered with accompanying degenerative changes. Degenerative changes also noted in the interphalangeal articulation of the great toe. Normal second through fifth metatarsophalangeal joints. There is truncation of the distal end of the p roximal phalanx of the fifth toe. This may be postsurgical in nature. Mild degenerative changes interphalangeal articulations are present. The soft tissue structures are unremarkable. IMPRESSION: Osteopenia with degenerative changes. Postsurgical residuals great toe. No acute fracture demonstrated. Electronically Signed: Ashok Gonzalez DO at 9:34 EDT , Service support [phone], CC: Veronica Oquendo DO; Jade Benson MD [employer] Installer: Signed 31-May-2014 Hand Min 3 Views Result: Comments: See Note; NOTES: [facility] [address] [place] [address] Radiology Report MR#: [id number] Acct: [id number] Name: SUGEY LING Rep #: [id number] : 1950 F 63 From: Celso Guerrero DO PCP: Veronica Oquendo DO Status: REG CLI Study: Hand Min 3 Views Date of Exam: 05/31/14 Exam# [id number] Ordering Dr: Jade Benson MD STUDY: X-RAY - RIGHT HAND REASON FOR EXAM: Female, 63 years old. Hand pain. Arthritis. TECHNIQUE: 3 view(s) of the hand. COMPARISON: October 24, 2009 FINDINGS: Osteopen ia is present. There is diffuse demineralization of the carpal bones. There is degenerative arthrosis of the carpometacarpal articulation of the thumb with lateral subluxation of the first metacarpu s. Normal second through fifth carpometacarpal joints. Normal metacarpi. There is degenerative arthrosis of the metacarpophalangeal (MCP) joints. Degenerative changes are present in the interphalan geal articulations. The soft tissue structures are unremarkable. IMPRESSION: Osteopenia with degenerative changes. No acute fracture identified. Electronica lly Signed: Ashok Gonzalez DO at 9:42 EDT , Service support [phone], CC: Veronica Oquendo DO; Jade Benson MD [employer] Installer: Signed 31-May-2014 Hand Min 3 Views Result: Comments: See Note; NOTES: [facility] Services [address] [place] [id number] Radiology Report MR#: [id number] Acct: [id number] Name: SUGEY LING Rep #: [id number] : 1950 F 63 From: Celso Guerrero DO PCP: Veronica Oquendo DO Status: REG CLI Study: Hand Min 3 Views Date of Exam: 05/31/14 Exam# [id number] Ordering Dr: Jade Benson MD STUDY: X-RAY - LEFT HAND REASON FOR EXAM: Female, 63 years old. Pain and stiffness. Arthritis. TECHNIQUE: 3 view(s) of the hand. COMPARISON: None. FINDINGS: There is di ffuse demineralization of the carpal bones. There is degenerative arthrosis of the carpometacarpal (CMC) articulation of the thumb. Normal second through fifth carpometacarpal joints. Normal metaca rpi. There is degenerative arthrosis of the metacarpophalangeal (MCP) joints. Mild arthrosis is noted in the interphalangeal articulations. The soft tissue structures are unremarkable. IMPRESSION: Osteopenia with degenerative changes. No acute fracture demonstrated. Electronically Signed: Ashok Gonzalez DO at 9:43 EDT , Servic e support [phone], RAD/Hand Min 3 Views IMPRESSION: Osteopenia with degenerative changes. No acute fracture demonstrated. Electronically Signed: Ashok keith DO at 9:43 EDT , Service support [phone], CC: Veronica Oquendo DO; Jade Bensno MD [employer] Installer: Signed 19-May-2014 Chest PA and Lateral Result: Comments: See Note; NOTES: [facility] Imaging Services [facility] [place] [address] Radiology Report MR#: [id number] Acct: [id number] Name: SUEGY LING Rep #: [id number] : 1950 F 63 From: Marciano Fountain MD PCP: Status: REG CLI Study: Chest PA and Lateral Date of Exam: 05/19/14 Exam# [id number] Ordering Dr: Veronica Oquendo DO STUDY: X-RAY CHEST RE ASON FOR EXAM: Female, 63 years old. Hypercalcemia. Wheezing. Mucus. Shortness of breath. TECHNIQUE: Frontal and lateral views of the chest. COMPARISON: CT scan chest 04/09/14. Chest x-ray 04/09/14 a nd 06/27/11. FINDINGS: Expanded. There are calcified pulmonary granulomas. There is interstitial prominence in the mid and lower lung field which appears to be c hronic. There is no demonstrated acute pulmonary infiltrate. There is no demonstrated pleural abnormality. Normal size heart. There are calcified granulomas overlying the mediastinum and hilar romeo ons Normal visualized pulmonary arteries. There is atherosclerotic calcification of the aortic arch with tortuosity. There is S-shaped thoracic scoliosis. There are multilevel degenerative changes o f the thoracic spine. Normal visualized ribs, clavicles, and shoulders. There is no demonstrated abnormality of the visualized soft tissue structures of the upper abdomen. IMPRESSION: Chronic interstitial lung disease and old granulomatous disease. No evidence for acute cardiopulmonary pathology. Electronically Signed: Marciano Fountain MD at 5:44 EDT , Service support [phone], CC: Veronica Oquendo DO [employer] Installer: Signed 18-Apr-2014 EKG ([id number]) Comments: nsr no acute chg Result: [MEASUREMENTS ANALYSIS] Date of Test: 04/18/2014 09:33:28; Heart Rate: 72; ND Interval: 148; QRS: 108; QT Interval: 392; Corrected QT Interval (QTc): 413; P Wave [place]: 63; QRS Wave [place]: 59; T Wave [place] : 66; Blood Pressure: 138/62 [ECG DIAGNOSTIC STATEMENTS] Date of Test: 04/18/2014 09:33:28; Summary: Sinus Rhythm Low voltage in limb leads. - Negative precordial T-waves. ABNORMAL 16-Sep-2013 Bilat Scrn Digital & CAD Result: Comments: See Note; NOTES: [facility] [address] [place] [address] Breast Imaging Report MR#: [id number] Acct: [id number] Name: SUGEY LING Rep #: [id number] : 1950 F 62 From: Anam Larios MD PCP: Veronica Oquendo DO Status: REG CLI Exam# [id number] Ordering Dr: Azra, Veronica DO MAMMOGRAPHY - BILATERAL SCREENING REASON FOR E XAM: Female, 62 years old. Routine annual screening examination. PERTINENT HISTORY: Non-contributory. TECHNIQUE: Digital examination. Mediolateral oblique (MLO) and craniocaudad (CC) views of both breasts were obtained. CAD: CAD was performed on this study. COMPARISON: Comparison is made with prior examination dated May 22, 2011 and November 01, 2008. F INDINGS: The breast composition is almost entirely fat. Glandular tissue is less than 25%. There are no dominant masses or suspicious calcifications. No other significant abnormalities are identif ied. There has been no significant change since the prior study. IMPRESSION: Stable bilateral screening mammogram. Yearly follow-up recommended. (A) ASSESSMENT CATEGORY: BIRADS Category 2: Benign finding(s). A letter regarding these results will be sent to the patient by the facility within 30 days. Approximately 10% o f breast cancers are not detected by mammography. A normal mammogram should not delay biopsy of a clinically suspicious abnormality. Signed: Anam Larios M.D. September 16, 2013 at 9:43:10 AM EDT [phone] Electronically Signed GP/GP If you are the referring physician and would like to consult with the radiologist who provided this interpretation, please contact Anam Webb i, M.D. at [phone]. If this radiologist is unavailable, you will be directed to another radiologist to assist. If you are a patient with a question regarding this report, please contact your re ferring physician directly. Professional Interpretation Provided By: [employer], Phone , These documents contain legally protected and confidential health informatio n intended only for the use of the individual or entity named above. If you are not the intended recipient, you are hereby notified that any disclosure, copying, distribution, or other use of these do cuments is strictly prohibited. If you have received this information in error, please notify the sender immediately and arrange for the return or destruction of these documents. CC: Veronica Oquendo DO [employer] Installer: Signed Family History Unknown Family Member Name Dates Details Alcohol Abuse Comments: Brother, Family Members In General Status: Active Colon Cancer Comments: Father Status: Active Diabetes Mellitus Comments: Mother, Sisterx2 Status: Active Heart Disease Comments: Mother Status: Active Hypercholesterolemia Comments: Mother, Father, Sister Status: Active Hypertension Comments: Mother, Father Status: Active Lung Cancer Comments: Father Status: Active Lung/Respiratory Disease Comments: Mother Status: Active Ulcer Disease Comments: Mother Status: Active Social History Name Dates Details Caffeine Use Comments: qd Status: Active Exercise History Comments: Exercises occasionally Status: Active Living Situation Comments: Lives with spouse Status: Active No Drug Use Status: Active Non Drinker/No Alcohol Use Status: Active Non Smoker/No Tobacco Use Status: Active Pets/Animals Comments: none Status: Active Tobacco use: Former smoker. Comments: 04/27/12 Status: Active Smoking Status Name Dates Details Former smoker Vital Signs Date Test Result Details :47 Temperature 96.8 f Comments: Method: Temporal Pulse 97 /min Comments: Pattern: Regular Respiration Rate 16 /min Comments: Pattern: Unlabored O2 SAT 92 % Comments: Room air BP Systolic 138 mm[Hg] Comments: Patient Position: Sitting; Cuff Location: Left Arm; Cuff Size: Standard BP Diastolic 82 mm[Hg] Comments: Patient Position: Sitting; Cuff Location: Left Arm; Cuff Size: Standard Weight 196.4 lb Height 60 in Body Mass Index Calculated 38.36 kg/m2 Body Surface Area Calculated 1.85 m2 :57 Temperature 98.2 f Comments: Method: Temporal Pulse 78 /min Comments: Pattern: Regular Respiration Rate 20 /min Comments: Pattern: Unlabored O2 SAT 98 % Comments: Room air BP Systolic 146 mm[Hg] Comments: Patient Position: Sitting; Cuff Location: Left Arm; Cuff Size: Large BP Diastolic 86 mm[Hg] Comments: Patient Position: Sitting; Cuff Location: Left Arm; Cuff Size: Large Weight 196 lb Height 60 in Body Mass Index Calculated 38.28 kg/m2 Body Surface Area Calculated 1.85 m2 :04 Temperature 98.5 f Comments: Method: Temporal Pulse 76 /min Comments: Pattern: Regular Respiration Rate 16 /min Comments: Pattern: Unlabored O2 SAT 93 % Comments: Room air BP Systolic 142 mm[Hg] Comments: Patient Position: Sitting; Cuff Location: Left Arm; Cuff Size: Standard BP Diastolic 84 mm[Hg] Comments: Patient Position: Sitting; Cuff Location: Left Arm; Cuff Size: Standard Weight 196 lb Height 60 in Body Mass Index Calculated 38.28 kg/m2 Body Surface Area Calculated 1.85 m2 [id number] Temperature 98.4 f Comments: Method: Tympanic Respiration Rate 18 /min Comments: Pattern: Unlabored O2 SAT 93 % Comments: Room air BP Systolic 122 mm[Hg] Comments: Patient Position: Sitting; Cuff Location: Left Arm; Cuff Size: Standard BP Diastolic 60 mm[Hg] Comments: Patient Position: Sitting; Cuff Location: Left Arm; Cuff Size: Standard Weight 197.25 lb Height 60 in Body Mass Index Calculated 38.52 kg/m2 Body Surface Area Calculated 1.86 m2 :39 Comments: [facility] and had a glaucoma test donehearing wn Pulse 84 /min Comments: Pattern: Regular Respiration Rate 18 /min Comments: Pattern: Unlabored O2 SAT 94 % Comments: Room air BP Systolic 134 mm[Hg] Comments: Patient Position: Sitting; Cuff Location: Left Arm; Cuff Size: Large BP Diastolic 78 mm[Hg] Comments: Patient Position: Sitting; Cuff Location: Left Arm; Cuff Size: Large Weight 197.25 lb Height 60 in Body Mass Index Calculated 38.52 kg/m2 Body Surface Area Calculated 1.86 m2 :35 Pulse 82 /min Comments: Pattern: Regular Respiration Rate 18 /min Comments: Pattern: Unlabored O2 SAT 97 % Comments: Room air BP Systolic 118 mm[Hg] Comments: Patient Position: Standing; Cuff Location: Left Arm; Cuff Size: Large BP Diastolic 70 mm[Hg] Comments: Patient Position: Standing; Cuff Location: Left Arm; Cuff Size: Large Weight 195.25 lb Height 60 in Body Mass Index Calculated 38.13 kg/m2 Body Surface Area Calculated 1.85 m2 :14 Pulse 75 /min Comments: Pattern: Regular Respiration Rate 18 /min Comments: Pattern: Unlabored O2 SAT 94 % Comments: Room air BP Systolic 136 mm[Hg] Comments: Patient Position: Sitting; Cuff Location: Left Arm; Cuff Size: Standard BP Diastolic 78 mm[Hg] Comments: Patient Position: Sitting; Cuff Location: Left Arm; Cuff Size: Standard Weight 200.5 lb Height 60 in Body Mass Index Calculated 39.16 kg/m2 Body Surface Area Calculated 1.87 m2 :14 Pulse 83 /min Comments: Pattern: Regular Respiration Rate 18 /min Comments: Pattern: Unlabored O2 SAT 98 % Comments: Room air BP Systolic 140 mm[Hg] Comments: Patient Position: Sitting; Cuff Location: Left Arm; Cuff Size: Standard BP Diastolic 80 mm[Hg] Comments: Patient Position: Sitting; Cuff Location: Left Arm; Cuff Size: Standard Weight 200.5 lb Height 60 in Body Mass Index Calculated 39.16 kg/m2 Body Surface Area Calculated 1.87 m2 :06 Pulse 83 /min Comments: Pattern: Regular Respiration Rate 18 /min Comments: Pattern: Unlabored O2 SAT 94 % Comments: Room air BP Systolic 124 mm[Hg] Comments: Patient Position: Sitting; Cuff Location: Left Arm; Cuff Size: Large BP Diastolic 76 mm[Hg] Comments: Patient Position: Sitting; Cuff Location: Left Arm; Cuff Size: Large Weight 208 lb Height 60 in Body Mass Index Calculated 40.62 kg/m2 Body Surface Area Calculated 1.9 m2 :10 Pulse 96 /min Comments: Pattern: Regular Respiration Rate 18 /min Comments: Pattern: Unlabored O2 SAT 95 % Comments: Room air BP Systolic 148 mm[Hg] Comments: Patient Position: Sitting; Cuff Location: Left Arm; Cuff Size: Large BP Diastolic 62 mm[Hg] Comments: Patient Position: Sitting; Cuff Location: Left Arm; Cuff Size: Large Weight 208 lb Height 60 in Body Mass Index Calculated 40.62 kg/m2 Body Surface Area Calculated 1.9 m2 :02 Pulse 97 /min Comments: Pattern: Regular Respiration Rate 18 /min Comments: Pattern: Unlabored O2 SAT 94 % Comments: Room air BP Systolic 122 mm[Hg] Comments: Patient Position: Sitting; Cuff Location: Left Arm; Cuff Size: Large BP Diastolic 82 mm[Hg] Comments: Patient Position: Sitting; Cuff Location: Left Arm; Cuff Size: Large Weight 207.375 lb Height 60 in Body Mass Index Calculated 40.5 kg/m2 Body Surface Area Calculated 1.9 m2 [id number] Pulse 84 /min Comments: Pattern: Regular Respiration Rate 18 /min Comments: Pattern: Unlabored O2 SAT 98 % Comments: Room air BP Systolic 118 mm[Hg] Comments: Patient Position: Sitting; Cuff Location: Left Arm; Cuff Size: Large BP Diastolic 84 mm[Hg] Comments: Patient Position: Sitting; Cuff Location: Left Arm; Cuff Size: Large Weight 207.375 lb Height 60 in Body Mass Index Calculated 40.5 kg/m2 Body Surface Area Calculated 1.9 m2 :23 Temperature 98.4 f Comments: Method: Temporal Pulse 62 /min Comments: Pattern: Regular Respiration Rate 16 /min Comments: Pattern: Unlabored O2 SAT 96 % Comments: Room air BP Systolic 142 mm[Hg] Comments: Patient Position: Sitting; Cuff Location: Left Arm; Cuff Size: Standard BP Diastolic 80 mm[Hg] Comments: Patient Position: Sitting; Cuff Location: Left Arm; Cuff Size: Standard Weight 208 lb Height 60 in Body Mass Index Calculated 40.62 kg/m2 Body Surface Area Calculated 1.9 m2 :30 Temperature 98.4 f Comments: Method: Temporal Pulse 98 /min Comments: Pattern: Regular Respiration Rate 19 /min Comments: Pattern: Unlabored O2 SAT 91 % Comments: Room air BP Systolic 124 mm[Hg] Comments: Patient Position: Sitting; Cuff Location: Left Arm; Cuff Size: Standard BP Diastolic 80 mm[Hg] Comments: Patient Position: Sitting; Cuff Location: Left Arm; Cuff Size: Standard Weight 208 lb Height 60 in Body Mass Index Calculated 40.62 kg/m2 Body Surface Area Calculated 1.9 m2 :41 Pulse 94 /min Comments: Pattern: Regular Respiration Rate 18 /min Comments: Pattern: Unlabored O2 SAT 95 % Comments: Room air BP Systolic 138 mm[Hg] Comments: Patient Position: Sitting; Cuff Location: Left Arm; Cuff Size: Large BP Diastolic 70 mm[Hg] Comments: Patient Position: Sitting; Cuff Location: Left Arm; Cuff Size: Large Weight 210.5 lb Height 60 in Body Mass Index Calculated 41.11 kg/m2 Body Surface Area Calculated 1.91 m2 :42 Temperature 96.8 f Pulse 90 /min Comments: Pattern: Regular Respiration Rate 18 /min Comments: Pattern: Unlabored O2 SAT 96 % Comments: Room air BP Systolic 158 mm[Hg] Comments: Patient Position: Sitting; Cuff Location: Left Arm; Cuff Size: Standard BP Diastolic 80 mm[Hg] Comments: Patient Position: Sitting; Cuff Location: Left Arm; Cuff Size: Standard Weight 210.5 lb Height 60 in Body Mass Index Calculated 41.11 kg/m2 Body Surface Area Calculated 1.91 m2 :39 Pulse 86 /min Comments: Pattern: Regular Respiration Rate 18 /min Comments: Pattern: Unlabored O2 SAT 92 % Comments: Room air BP Systolic 125 mm[Hg] Comments: Patient Position: Sitting; Cuff Location: Left Arm; Cuff Size: Large BP Diastolic 70 mm[Hg] Comments: Patient Position: Sitting; Cuff Location: Left Arm; Cuff Size: Large Weight 210.5 lb Height 60 in Body Mass Index Calculated 41.11 kg/m2 Body Surface Area Calculated 1.91 m2 :03 Pulse 96 /min Comments: Pattern: Regular Respiration Rate 18 /min Comments: Pattern: Unlabored O2 SAT 95 % Comments: Room air BP Systolic 128 mm[Hg] Comments: Patient Position: Sitting; Cuff Location: Left Arm; Cuff Size: Large BP Diastolic 72 mm[Hg] Comments: Patient Position: Sitting; Cuff Location: Left Arm; Cuff Size: Large Weight 211 lb Height 60 in Body Mass Index Calculated 41.21 kg/m2 Body Surface Area Calculated 1.91 m2 :55 Temperature 97.8 f Comments: Method: Oral Pulse 81 /min Comments: Pattern: Regular Respiration Rate 20 /min Comments: Pattern: Unlabored O2 SAT 96 % Comments: Room air BP Systolic 142 mm[Hg] Comments: Patient Position: Sitting; Cuff Location: Left Arm; Cuff Size: Large BP Diastolic 78 mm[Hg] Comments: Patient Position: Sitting; Cuff Location: Left Arm; Cuff Size: Large Weight 212.5 lb Height 60 in Body Mass Index Calculated 41.5 kg/m2 Body Surface Area Calculated 1.92 m2 :55 Pulse 84 /min Comments: Pattern: Regular Respiration Rate 18 /min Comments: Pattern: Unlabored O2 SAT 98 % Comments: Room air BP Systolic 138 mm[Hg] Comments: Patient Position: Sitting; Cuff Location: Left Arm; Cuff Size: Large BP Diastolic 82 mm[Hg] Comments: Patient Position: Sitting; Cuff Location: Left Arm; Cuff Size: Large Weight 212.5 lb Height 60 in Body Mass Index Calculated 41.5 kg/m2 Body Surface Area Calculated 1.92 m2 :30 Pulse 83 /min Comments: Pattern: Regular Respiration Rate 18 /min Comments: Pattern: Unlabored O2 SAT 93 % Comments: Room air BP Systolic 122 mm[Hg] Comments: Patient Position: Sitting; Cuff Location: Left Arm; Cuff Size: Large BP Diastolic 62 mm[Hg] Comments: Patient Position: Sitting; Cuff Location: Left Arm; Cuff Size: Large Weight 212.5 lb Height 60 in Body Mass Index Calculated 41.5 kg/m2 Body Surface Area Calculated 1.92 m2 :59 Temperature 97.1 f Pulse 80 /min Comments: Pattern: Regular O2 SAT 96 % Comments: Room air BP Systolic 122 mm[Hg] Comments: Patient Position: Sitting; Cuff Location: Left Arm; Cuff Size: Standard BP Diastolic 78 mm[Hg] Comments: Patient Position: Sitting; Cuff Location: Left Arm; Cuff Size: Standard Weight 212 lb Height 60 in Body Mass Index Calculated 41.4 kg/m2 Body Surface Area Calculated 1.91 m2 :11 Pulse 111 /min Comments: Pattern: Regular BP Systolic 89 mm[Hg] Comments: Patient Position: Standing; Cuff Location: Right Arm; Cuff Size: Standard BP Diastolic 60 mm[Hg] Comments: Patient Position: Standing; Cuff Location: Right Arm; Cuff Size: Standard :11 Pulse 77 /min Comments: Pattern: Regular BP Systolic 106 mm[Hg] Comments: Patient Position: Sitting; Cuff Location: Right Arm; Cuff Size: Standard BP Diastolic 65 mm[Hg] Comments: Patient Position: Sitting; Cuff Location: Right Arm; Cuff Size: Standard :11 Pulse 76 /min Comments: Pattern: Regular BP Systolic 111 mm[Hg] Comments: Patient Position: Supine; Cuff Location: Right Arm; Cuff Size: Standard BP Diastolic 61 mm[Hg] Comments: Patient Position: Supine; Cuff Location: Right Arm; Cuff Size: Standard :44 Temperature 97.1 f Pulse 79 /min Comments: Pattern: Regular Respiration Rate 16 /min Comments: Pattern: Unlabored O2 SAT 94 % Comments: Room air BP Systolic 108 mm[Hg] Comments: Patient Position: Sitting; Cuff Location: Left Arm; Cuff Size: Standard BP Diastolic 68 mm[Hg] Comments: Patient Position: Sitting; Cuff Location: Left Arm; Cuff Size: Standard Weight 212.25 lb Height 60 in Body Mass Index Calculated 41.45 kg/m2 Body Surface Area Calculated 1.91 m2 :36 Pulse 80 /min Comments: Pattern: Regular Respiration Rate 18 /min Comments: Pattern: Unlabored O2 SAT 93 % Comments: Room air BP Systolic 132 mm[Hg] Comments: Patient Position: Sitting; Cuff Location: Left Arm; Cuff Size: Large BP Diastolic 70 mm[Hg] Comments: Patient Position: Sitting; Cuff Location: Left Arm; Cuff Size: Large Weight 212.25 lb Height 60 in Body Mass Index Calculated 41.45 kg/m2 Body Surface Area Calculated 1.91 m2 :13 Temperature 97.7 f Pulse 80 /min Comments: Pattern: Regular Respiration Rate 17 /min Comments: Pattern: Unlabored O2 SAT 96 % Comments: Room air BP Systolic 126 mm[Hg] Comments: Patient Position: Sitting; Cuff Location: Left Arm; Cuff Size: Standard BP Diastolic 84 mm[Hg] Comments: Patient Position: Sitting; Cuff Location: Left Arm; Cuff Size: Standard Weight 214.375 lb Height 60 in Body Mass Index Calculated 41.87 kg/m2 Body Surface Area Calculated 1.92 m2 :22 Pulse 91 /min Comments: Pattern: Regular Respiration Rate 17 /min Comments: Pattern: Unlabored O2 SAT 92 % Comments: Room air BP Systolic 145 mm[Hg] Comments: Patient Position: Sitting; Cuff Location: Left Arm; Cuff Size: Large BP Diastolic 70 mm[Hg] Comments: Patient Position: Sitting; Cuff Location: Left Arm; Cuff Size: Large Weight 218 lb Height 60 in Body Mass Index Calculated 42.57 kg/m2 Body Surface Area Calculated 1.94 m2 :30 BP Systolic 120 mm[Hg] Comments: Patient Position: Sitting; Cuff Location: Left Arm; Cuff Size: Standard BP Diastolic 72 mm[Hg] Comments: Patient Position: Sitting; Cuff Location: Left Arm; Cuff Size: Standard :45 Pulse 67 /min Comments: Pattern: Regular Respiration Rate 18 /min Comments: Pattern: Unlabored O2 SAT 96 % Comments: Room air BP Systolic 158 mm[Hg] Comments: Patient Position: Sitting; Cuff Location: Left Arm; Cuff Size: Large BP Diastolic 70 mm[Hg] Comments: Patient Position: Sitting; Cuff Location: Left Arm; Cuff Size: Large Weight 213.375 lb Height 60 in Body Mass Index Calculated 41.67 kg/m2 Body Surface Area Calculated 1.92 m2 :08 Pulse 83 /min Comments: Pattern: Regular Respiration Rate 18 /min Comments: Pattern: Unlabored O2 SAT 95 % Comments: Room air BP Systolic 142 mm[Hg] Comments: Patient Position: Sitting; Cuff Location: Left Arm; Cuff Size: Large BP Diastolic 82 mm[Hg] Comments: Patient Position: Sitting; Cuff Location: Left Arm; Cuff Size: Large Weight 217.25 lb Height 60 in Body Mass Index Calculated 42.43 kg/m2 Body Surface Area Calculated 1.93 m2 :12 Pulse 82 /min Comments: Pattern: Regular Respiration Rate 16 /min Comments: Pattern: Unlabored O2 SAT 96 % Comments: Room air BP Systolic 147 mm[Hg] Comments: Patient Position: Sitting; Cuff Location: Left Arm; Cuff Size: Standard BP Diastolic 78 mm[Hg] Comments: Patient Position: Sitting; Cuff Location: Left Arm; Cuff Size: Standard Weight 217.25 lb Height 60 in Body Mass Index Calculated 42.43 kg/m2 Body Surface Area Calculated 1.93 m2 :20 Pulse 90 /min Comments: Pattern: Regular Respiration Rate 16 /min Comments: Pattern: Unlabored O2 SAT 96 % Comments: Room air BP Systolic 120 mm[Hg] Comments: Patient Position: Sitting; Cuff Location: Left Arm; Cuff Size: Standard BP Diastolic 60 mm[Hg] Comments: Patient Position: Sitting; Cuff Location: Left Arm; Cuff Size: Standard Weight 211.25 lb Height 60 in Body Mass Index Calculated 41.26 kg/m2 Body Surface Area Calculated 1.91 m2 :07 Temperature 97.5 f Pulse 93 /min Comments: Pattern: Regular Respiration Rate 18 /min Comments: Pattern: Unlabored O2 SAT 92 % Comments: Room air BP Systolic 132 mm[Hg] Comments: Patient Position: Sitting; Cuff Location: Left Arm; Cuff Size: Standard BP Diastolic 68 mm[Hg] Comments: Patient Position: Sitting; Cuff Location: Left Arm; Cuff Size: Standard Weight 211.25 lb Height 60 in Body Mass Index Calculated 41.26 kg/m2 Body Surface Area Calculated 1.91 m2 :57 Pulse 73 /min Comments: Pattern: Regular Respiration Rate 18 /min Comments: Pattern: Unlabored O2 SAT 93 % Comments: Room air BP Systolic 122 mm[Hg] Comments: Patient Position: Sitting; Cuff Location: Left Arm; Cuff Size: Large BP Diastolic 78 mm[Hg] Comments: Patient Position: Sitting; Cuff Location: Left Arm; Cuff Size: Large Weight 211.25 lb Height 60 in Body Mass Index Calculated 41.26 kg/m2 Body Surface Area Calculated 1.91 m2 :49 Temperature 97 f Pulse 88 /min Comments: Pattern: Regular Respiration Rate 16 /min Comments: Pattern: Unlabored O2 SAT 97 % Comments: Room air BP Systolic 136 mm[Hg] Comments: Patient Position: Sitting; Cuff Location: Left Arm; Cuff Size: Standard BP Diastolic 78 mm[Hg] Comments: Patient Position: Sitting; Cuff Location: Left Arm; Cuff Size: Standard Weight 212.125 lb Height 60 in Body Mass Index Calculated 41.43 kg/m2 Body Surface Area Calculated 1.91 m2 :41 Temperature 97.9 f Pulse 85 /min Comments: Pattern: Regular Respiration Rate 17 /min Comments: Pattern: Unlabored O2 SAT 97 % Comments: Room air BP Systolic 124 mm[Hg] Comments: Patient Position: Sitting; Cuff Location: Left Arm; Cuff Size: Standard BP Diastolic 78 mm[Hg] Comments: Patient Position: Sitting; Cuff Location: Left Arm; Cuff Size: Standard Weight 209 lb Height 60 in Body Mass Index Calculated 40.82 kg/m2 Body Surface Area Calculated 1.9 m2 :57 Pulse 87 /min Comments: Pattern: Regular O2 SAT 94 % Comments: Room air BP Systolic 120 mm[Hg] Comments: Patient Position: Sitting; Cuff Location: Right Arm; Cuff Size: Standard BP Diastolic 62 mm[Hg] Comments: Patient Position: Sitting; Cuff Location: Right Arm; Cuff Size: Standard Weight 208.25 lb Height 60 in Body Mass Index Calculated 40.67 kg/m2 Body Surface Area Calculated 1.9 m2 :05 Pulse 85 /min Comments: Pattern: Regular Respiration Rate 18 /min Comments: Pattern: Unlabored O2 SAT 92 % Comments: Room air BP Systolic 122 mm[Hg] Comments: Patient Position: Sitting; Cuff Location: Left Arm; Cuff Size: Large BP Diastolic 60 mm[Hg] Comments: Patient Position: Sitting; Cuff Location: Left Arm; Cuff Size: Large Weight 208.25 lb Height 60 in Body Mass Index Calculated 40.67 kg/m2 Body Surface Area Calculated 1.9 m2 :23 Temperature 100.8 f Comments: Method: Oral Pulse 96 /min Comments: Pattern: Regular Respiration Rate 18 /min Comments: Pattern: Unlabored O2 SAT 92 % Comments: Room air BP Systolic 138 mm[Hg] Comments: Patient Position: Sitting; Cuff Location: Left Arm; Cuff Size: Large BP Diastolic 68 mm[Hg] Comments: Patient Position: Sitting; Cuff Location: Left Arm; Cuff Size: Large Weight 208.125 lb Height 60 in Body Mass Index Calculated 40.65 kg/m2 Body Surface Area Calculated 1.9 m2 :12 Pulse 83 /min Comments: Pattern: Regular Respiration Rate 18 /min Comments: Pattern: Unlabored O2 SAT 94 % Comments: Room air BP Systolic 122 mm[Hg] Comments: Patient Position: Sitting; Cuff Location: Left Arm; Cuff Size: Standard BP Diastolic 74 mm[Hg] Comments: Patient Position: Sitting; Cuff Location: Left Arm; Cuff Size: Standard Weight 206.25 lb Height 60 in Body Mass Index Calculated 40.28 kg/m2 Body Surface Area Calculated 1.89 m2 :22 Temperature 97.2 f Pulse 80 /min Comments: Pattern: Regular Respiration Rate 20 /min Comments: Pattern: Unlabored O2 SAT 97 % Comments: Room air BP Systolic 112 mm[Hg] Comments: Patient Position: Sitting; Cuff Location: Left Arm; Cuff Size: Standard BP Diastolic 74 mm[Hg] Comments: Patient Position: Sitting; Cuff Location: Left Arm; Cuff Size: Standard Weight 204.5 lb Height 60 in Body Mass Index Calculated 39.94 kg/m2 Body Surface Area Calculated 1.88 m2 :13 Temperature 97.1 f Comments: Method: Temporal Pulse 78 /min Comments: Pattern: Regular Respiration Rate 16 /min Comments: Pattern: Unlabored O2 SAT 95 % Comments: Room air BP Systolic 134 mm[Hg] Comments: Patient Position: Sitting; Cuff Location: Left Arm; Cuff Size: Standard BP Diastolic 80 mm[Hg] Comments: Patient Position: Sitting; Cuff Location: Left Arm; Cuff Size: Standard Weight 205.5 lb Height 60 in Body Mass Index Calculated 40.13 kg/m2 Body Surface Area Calculated 1.89 m2 [id number] Comments: [facility] and had a glaucoma test donehearing wnl Pulse 78 /min Comments: Pattern: Regular Respiration Rate 18 /min Comments: Pattern: Unlabored O2 SAT 91 % Comments: Room air BP Systolic 142 mm[Hg] Comments: Patient Position: Sitting; Cuff Location: Left Arm; Cuff Size: Large BP Diastolic 78 mm[Hg] Comments: Patient Position: Sitting; Cuff Location: Left Arm; Cuff Size: Large Weight 208.5 lb Height 60 in Body Mass Index Calculated 40.72 kg/m2 Body Surface Area Calculated 1.9 m2 :49 Pulse 76 /min Comments: Pattern: Regular Respiration Rate 18 /min Comments: Pattern: Unlabored O2 SAT 95 % Comments: Room air BP Systolic 142 mm[Hg] Comments: Patient Position: Sitting; Cuff Location: Left Arm; Cuff Size: Large BP Diastolic 80 mm[Hg] Comments: Patient Position: Sitting; Cuff Location: Left Arm; Cuff Size: Large Weight 208.5 lb Height 60 in Body Mass Index Calculated 40.72 kg/m2 Body Surface Area Calculated 1.9 m2 :20 Comments: 138/70 2nd bp Pulse 96 /min Comments: Pattern: Regular Respiration Rate 18 /min Comments: Pattern: Unlabored O2 SAT 96 % Comments: Room air BP Systolic 150 mm[Hg] Comments: Patient Position: Sitting; Cuff Location: Left Arm; Cuff Size: Large BP Diastolic 74 mm[Hg] Comments: Patient Position: Sitting; Cuff Location: Left Arm; Cuff Size: Large Weight 207 lb Height 60 in Body Mass Index Calculated 40.43 kg/m2 Body Surface Area Calculated 1.89 m2 :43 Temperature 98.2 f Comments: Method: Temporal Pulse 91 /min Comments: Pattern: Regular Respiration Rate 16 /min Comments: Pattern: Unlabored O2 SAT 98 % Comments: Room air BP Systolic 132 mm[Hg] Comments: Patient Position: Sitting; Cuff Location: Left Arm; Cuff Size: Standard BP Diastolic 74 mm[Hg] Comments: Patient Position: Sitting; Cuff Location: Left Arm; Cuff Size: Standard Weight 204 lb Height 60 in Body Mass Index Calculated 39.84 kg/m2 Body Surface Area Calculated 1.88 m2 :14 Temperature 97.6 f Comments: Method: Oral Pulse 90 /min Comments: Pattern: Regular Respiration Rate 16 /min Comments: Pattern: Unlabored O2 SAT 93 % Comments: Room air BP Systolic 132 mm[Hg] Comments: Patient Position: Sitting; Cuff Location: Left Arm; Cuff Size: Standard BP Diastolic 64 mm[Hg] Comments: Patient Position: Sitting; Cuff Location: Left Arm; Cuff Size: Standard Weight 203 lb Height 60 in Body Mass Index Calculated 39.65 kg/m2 Body Surface Area Calculated 1.88 m2 :44 Temperature 97.5 f Pulse 79 /min Comments: Pattern: Regular Respiration Rate 17 /min Comments: Pattern: Unlabored O2 SAT 97 % Comments: Room air BP Systolic 112 mm[Hg] Comments: Patient Position: Sitting; Cuff Location: Left Arm; Cuff Size: Standard BP Diastolic 62 mm[Hg] Comments: Patient Position: Sitting; Cuff Location: Left Arm; Cuff Size: Standard Weight 203 lb Height 60 in Body Mass Index Calculated 39.65 kg/m2 Body Surface Area Calculated 1.88 m2 : Temperature 97 f Comments: Method: Tympanic Pulse 97 /min Comments: Pattern: Regular Respiration Rate 18 /min Comments: Pattern: Unlabored O2 SAT 97 % Comments: Room air BP Systolic 130 mm[Hg] Comments: Patient Position: Sitting; Cuff Location: Left Arm; Cuff Size: Standard BP Diastolic 58 mm[Hg] Comments: Patient Position: Sitting; Cuff Location: Left Arm; Cuff Size: Standard Weight 203 lb Height 60 in Body Mass Index Calculated 39.65 kg/m2 Body Surface Area Calculated 1.88 m2 :01 Temperature 98.6 f Comments: Method: Temporal Pulse 86 /min Comments: Pattern: Regular Respiration Rate 16 /min Comments: Pattern: Unlabored O2 SAT 93 % Comments: Room air BP Systolic 156 mm[Hg] Comments: Patient Position: Sitting; Cuff Location: Left Arm; Cuff Size: Standard BP Diastolic 80 mm[Hg] Comments: Patient Position: Sitting; Cuff Location: Left Arm; Cuff Size: Standard Weight 203 lb Height 60 in Body Mass Index Calculated 39.65 kg/m2 Body Surface Area Calculated 1.88 m2 :01 Temperature 97.2 f Comments: Method: Temporal Pulse 82 /min Comments: Pattern: Regular Respiration Rate 17 /min Comments: Pattern: Unlabored O2 SAT 97 % Comments: Room air BP Systolic 134 mm[Hg] Comments: Patient Position: Sitting; Cuff Location: Left Arm; Cuff Size: Standard BP Diastolic 76 mm[Hg] Comments: Patient Position: Sitting; Cuff Location: Left Arm; Cuff Size: Standard Weight 202.4 lb Height 60 in Body Mass Index Calculated 39.53 kg/m2 Body Surface Area Calculated 1.88 m2 :28 Comments: oa pain is improving on glucosamine chond Temperature 96.3 f Comments: Method: Oral Pulse 80 /min Comments: Pattern: Regular Respiration Rate 10 /min Comments: Pattern: Unlabored BP Systolic 130 mm[Hg] Comments: Patient Position: Sitting; Cuff Location: Left Arm; Cuff Size: Standard BP Diastolic 72 mm[Hg] Comments: Patient Position: Sitting; Cuff Location: Left Arm; Cuff Size: Standard Weight 202 lb Height 60 in Body Mass Index Calculated 39.45 kg/m2 Body Surface Area Calculated 1.87 m2 :29 Pulse 88 /min Comments: Pattern: Regular Respiration Rate 18 /min Comments: Pattern: Unlabored O2 SAT 91 % Comments: Room air BP Systolic 148 mm[Hg] Comments: Patient Position: Sitting; Cuff Location: Left Arm; Cuff Size: Large BP Diastolic 78 mm[Hg] Comments: Patient Position: Sitting; Cuff Location: Left Arm; Cuff Size: Large Weight 205 lb Height 60 in Body Mass Index Calculated 40.04 kg/m2 Body Surface Area Calculated 1.89 m2 :57 Pulse 103 /min Comments: Pattern: Regular Respiration Rate 20 /min Comments: Pattern: Unlabored O2 SAT 92 % Comments: Room air BP Systolic 142 mm[Hg] Comments: Patient Position: Sitting; Cuff Location: Left Arm; Cuff Size: Large BP Diastolic 78 mm[Hg] Comments: Patient Position: Sitting; Cuff Location: Left Arm; Cuff Size: Large Weight 210.125 lb :09 Temperature 97.5 f Comments: Method: Temporal Pulse 72 /min Comments: Pattern: Regular Respiration Rate 16 /min Comments: Pattern: Unlabored O2 SAT 97 % Comments: Room air BP Systolic 130 mm[Hg] Comments: Patient Position: Sitting; Cuff Location: Left Arm; Cuff Size: Standard BP Diastolic 78 mm[Hg] Comments: Patient Position: Sitting; Cuff Location: Left Arm; Cuff Size: Standard Weight 201.25 lb :30 Pulse 90 /min Comments: Pattern: Regular Respiration Rate 20 /min Comments: Pattern: Unlabored O2 SAT 95 % Comments: Room air BP Systolic 162 mm[Hg] Comments: Patient Position: Sitting; Cuff Location: Left Arm; Cuff Size: Large BP Diastolic 70 mm[Hg] Comments: Patient Position: Sitting; Cuff Location: Left Arm; Cuff Size: Large Weight 201.25 lb :32 Pulse 58 /min Comments: Pattern: Regular Respiration Rate 20 /min Comments: Pattern: Unlabored O2 SAT 93 % Comments: Room air BP Systolic 138 mm[Hg] Comments: Patient Position: Sitting; Cuff Location: Left Arm; Cuff Size: Large BP Diastolic 62 mm[Hg] Comments: Patient Position: Sitting; Cuff Location: Left Arm; Cuff Size: Large Weight 201.25 lb :06 Temperature 97.2 f Comments: Method: Temporal Pulse 92 /min Comments: Pattern: Regular Respiration Rate 20 /min Comments: Pattern: Unlabored O2 SAT 93 % Comments: Room air BP Systolic 138 mm[Hg] Comments: Patient Position: Sitting; Cuff Location: Left Arm; Cuff Size: Large BP Diastolic 62 mm[Hg] Comments: Patient Position: Sitting; Cuff Location: Left Arm; Cuff Size: Large Weight 201.25 lb :04 Temperature 97.5 f Comments: Method: Oral Pulse 97 /min Comments: Pattern: Regular Respiration Rate 18 /min O2 SAT 98 % Comments: Room air BP Systolic 146 mm[Hg] Comments: Patient Position: Sitting; Cuff Location: Left Arm; Cuff Size: Standard BP Diastolic 82 mm[Hg] Comments: Patient Position: Sitting; Cuff Location: Left Arm; Cuff Size: Standard Weight 202.375 lb :09 Comments: hearing [facility] and had a glaucoma test done Pulse 87 /min Comments: Pattern: Regular Respiration Rate 20 /min Comments: Pattern: Unlabored O2 SAT 93 % Comments: Room air BP Systolic 148 mm[Hg] Comments: Patient Position: Sitting; Cuff Location: Left Arm; Cuff Size: Large BP Diastolic 82 mm[Hg] Comments: Patient Position: Sitting; Cuff Location: Left Arm; Cuff Size: Large Weight 208 lb Height 60 in Body Mass Index Calculated 40.62 kg/m2 Body Surface Area Calculated 1.9 m2 [id number] Pulse 79 /min Comments: Pattern: Regular Respiration Rate 20 /min Comments: Pattern: Unlabored O2 SAT 94 % Comments: Room air BP Systolic 138 mm[Hg] Comments: Patient Position: Sitting; Cuff Location: Left Arm; Cuff Size: Large BP Diastolic 80 mm[Hg] Comments: Patient Position: Sitting; Cuff Location: Left Arm; Cuff Size: Large Weight 198.25 lb Height 60 in Body Mass Index Calculated 38.72 kg/m2 Body Surface Area Calculated 1.86 m2 :19 Pulse 87 /min Comments: Pattern: Regular Respiration Rate 20 /min Comments: Pattern: Unlabored O2 SAT 97 % Comments: Room air BP Systolic 140 mm[Hg] Comments: Patient Position: Sitting; Cuff Location: Left Arm; Cuff Size: Large BP Diastolic 78 mm[Hg] Comments: Patient Position: Sitting; Cuff Location: Left Arm; Cuff Size: Large Weight 198.25 lb Height 60 in Body Mass Index Calculated 38.72 kg/m2 Body Surface Area Calculated 1.86 m2 :36 Pulse 95 /min Comments: Pattern: Regular Respiration Rate 16 /min Comments: Pattern: Unlabored O2 SAT 94 % Comments: Room air BP Systolic 130 mm[Hg] Comments: Patient Position: Sitting; Cuff Location: Left Arm; Cuff Size: Standard BP Diastolic 70 mm[Hg] Comments: Patient Position: Sitting; Cuff Location: Left Arm; Cuff Size: Standard Weight 200.1875 lb Height 60 in Body Mass Index Calculated 39.1 kg/m2 Body Surface Area Calculated 1.87 m2 :01 Pulse 71 /min Comments: Pattern: Regular Respiration Rate 18 /min Comments: Pattern: Unlabored O2 SAT 97 % Comments: Room air BP Systolic 120 mm[Hg] Comments: Patient Position: Sitting; Cuff Location: Left Arm; Cuff Size: Large BP Diastolic 62 mm[Hg] Comments: Patient Position: Sitting; Cuff Location: Left Arm; Cuff Size: Large Weight 199.1875 lb Height 60 in Body Mass Index Calculated 38.9 kg/m2 Body Surface Area Calculated 1.86 m2 :43 Pulse 93 /min Comments: Pattern: Regular Respiration Rate 18 /min Comments: Pattern: Unlabored O2 SAT 90 % Comments: Room air BP Systolic 140 mm[Hg] Comments: Patient Position: Sitting; Cuff Location: Left Arm; Cuff Size: Standard BP Diastolic 80 mm[Hg] Comments: Patient Position: Sitting; Cuff Location: Left Arm; Cuff Size: Standard Weight 199.1875 lb Height 60 in Body Mass Index Calculated 38.9 kg/m2 Body Surface Area Calculated 1.86 m2 :35 Pulse 90 /min Comments: Pattern: Regular Respiration Rate 16 /min Comments: Pattern: Unlabored O2 SAT 93 % Comments: Room air BP Systolic 150 mm[Hg] Comments: Patient Position: Sitting; Cuff Location: Left Arm; Cuff Size: Standard BP Diastolic 78 mm[Hg] Comments: Patient Position: Sitting; Cuff Location: Left Arm; Cuff Size: Standard Weight 197.375 lb Height 60 in Body Mass Index Calculated 38.55 kg/m2 Body Surface Area Calculated 1.86 m2 :59 Temperature 98.1 f Comments: Method: Oral Pulse 91 /min Comments: Pattern: Regular Respiration Rate 20 /min Comments: Pattern: Unlabored O2 SAT 91 % Comments: Room air BP Systolic 131 mm[Hg] Comments: Patient Position: Sitting; Cuff Location: Left Arm; Cuff Size: Large BP Diastolic 78 mm[Hg] Comments: Patient Position: Sitting; Cuff Location: Left Arm; Cuff Size: Large Weight 201.375 lb Height 60 in Body Mass Index Calculated 39.33 kg/m2 Body Surface Area Calculated 1.87 m2 :09 Temperature 97.6 f Comments: Method: Oral Pulse 74 /min Comments: Pattern: Regular Respiration Rate 20 /min Comments: Pattern: Unlabored O2 SAT 97 % Comments: Room air BP Systolic 138 mm[Hg] Comments: Patient Position: Sitting; Cuff Location: Left Arm; Cuff Size: Large BP Diastolic 62 mm[Hg] Comments: Patient Position: Sitting; Cuff Location: Left Arm; Cuff Size: Large Weight 198.5 lb Height 60 in Body Mass Index Calculated 38.77 kg/m2 Body Surface Area Calculated 1.86 m2 :29 Temperature 97.1 f Comments: Method: Oral Pulse 83 /min Comments: Pattern: Regular Respiration Rate 20 /min Comments: Pattern: Unlabored O2 SAT 93 % Comments: Room air BP Systolic 124 mm[Hg] Comments: Patient Position: Sitting; Cuff Location: Left Arm; Cuff Size: Large BP Diastolic 62 mm[Hg] Comments: Patient Position: Sitting; Cuff Location: Left Arm; Cuff Size: Large Weight 199.3125 lb Height 60 in Body Mass Index Calculated 38.93 kg/m2 Body Surface Area Calculated 1.86 m2 :10 Temperature 98.7 f Comments: Method: Oral Pulse 86 /min Comments: Pattern: Regular Respiration Rate 20 /min O2 SAT 95 % Comments: Room air BP Systolic 138 mm[Hg] Comments: Patient Position: Sitting; Cuff Location: Left Arm; Cuff Size: Standard BP Diastolic 78 mm[Hg] Comments: Patient Position: Sitting; Cuff Location: Left Arm; Cuff Size: Standard Weight 196 lb Height 60 in Body Mass Index Calculated 38.28 kg/m2 Body Surface Area Calculated 1.85 m2 :02 Comments: hearing oziele jeny Mcfarlane Temperature 97.6 f Comments: Method: Tympanic Pulse 88 /min Comments: Pattern: Regular Respiration Rate 16 /min Comments: Pattern: Unlabored O2 SAT 93 % Comments: Room air BP Systolic 138 mm[Hg] Comments: Patient Position: Sitting; Cuff Location: Left Arm; Cuff Size: Large BP Diastolic 88 mm[Hg] Comments: Patient Position: Sitting; Cuff Location: Left Arm; Cuff Size: Large Weight 196 lb Height 60 in Body Mass Index Calculated 38.28 kg/m2 Body Surface Area Calculated 1.85 m2 :53 Temperature 98 f Comments: Method: Oral Pulse 80 /min Comments: Pattern: Regular Respiration Rate 20 /min Comments: Pattern: Unlabored BP Systolic 140 mm[Hg] Comments: Patient Position: Sitting; Cuff Location: Left Arm; Cuff Size: Large BP Diastolic 78 mm[Hg] Comments: Patient Position: Sitting; Cuff Location: Left Arm; Cuff Size: Large Weight 192 lb Height 60 in Body Mass Index Calculated 37.5 kg/m2 Body Surface Area Calculated 1.83 m2 :11 Pulse 72 /min Comments: Pattern: Regular Respiration Rate 20 /min Comments: Pattern: Unlabored BP Systolic 140 mm[Hg] Comments: Patient Position: Sitting; Cuff Location: Left Arm; Cuff Size: Standard BP Diastolic 78 mm[Hg] Comments: Patient Position: Sitting; Cuff Location: Left Arm; Cuff Size: Standard Weight 192 lb Height 60 in Body Mass Index Calculated 37.5 kg/m2 Body Surface Area Calculated 1.83 m2 :12 Pulse 64 /min Comments: Pattern: Regular Respiration Rate 18 /min Comments: Pattern: Unlabored BP Systolic 138 mm[Hg] Comments: Patient Position: Sitting; Cuff Location: Left Arm; Cuff Size: Large BP Diastolic 78 mm[Hg] Comments: Patient Position: Sitting; Cuff Location: Left Arm; Cuff Size: Large Weight 192 lb Height 60 in Body Mass Index Calculated 37.5 kg/m2 Body Surface Area Calculated 1.83 m2 :54 Temperature 98.2 f Comments: Method: Oral Pulse 85 /min Comments: Pattern: Regular Respiration Rate 18 /min Comments: Pattern: Unlabored O2 SAT 97 % Comments: Room air BP Systolic 140 mm[Hg] Comments: Patient Position: Sitting; Cuff Location: Left Arm; Cuff Size: Standard BP Diastolic 78 mm[Hg] Comments: Patient Position: Sitting; Cuff Location: Left Arm; Cuff Size: Standard Weight 194.0625 lb Height 60 in Body Mass Index Calculated 37.9 kg/m2 Body Surface Area Calculated 1.84 m2 :30 Pulse 86 /min Comments: Pattern: Regular Respiration Rate 16 /min Comments: Pattern: Unlabored O2 SAT 95 % Comments: Room air BP Systolic 126 mm[Hg] Comments: Patient Position: Sitting; Cuff Location: Left Arm; Cuff Size: Standard BP Diastolic 70 mm[Hg] Comments: Patient Position: Sitting; Cuff Location: Left Arm; Cuff Size: Standard Weight 194.0625 lb Height 60 in Body Mass Index Calculated 37.9 kg/m2 Body Surface Area Calculated 1.84 m2 :55 Temperature 98.7 f Comments: Method: Oral Pulse 84 /min Comments: Pattern: Regular Respiration Rate 18 /min O2 SAT 98 % Comments: Room air BP Systolic 134 mm[Hg] Comments: Patient Position: Sitting; Cuff Location: Left Arm; Cuff Size: Standard BP Diastolic 80 mm[Hg] Comments: Patient Position: Sitting; Cuff Location: Left Arm; Cuff Size: Standard Weight 192.0625 lb Height 60 in Body Mass Index Calculated 37.51 kg/m2 Body Surface Area Calculated 1.83 m2 :56 Pulse 80 /min Comments: Pattern: Regular Respiration Rate 18 /min Comments: Pattern: Unlabored BP Systolic 152 mm[Hg] Comments: Patient Position: Sitting; Cuff Location: Left Arm; Cuff Size: Standard BP Diastolic 80 mm[Hg] Comments: Patient Position: Sitting; Cuff Location: Left Arm; Cuff Size: Standard Weight 192.0625 lb Height 60 in Body Mass Index Calculated 37.51 kg/m2 Body Surface Area Calculated 1.83 m2 :00 Temperature 98.1 f Comments: Method: Oral Pulse 60 /min Comments: Pattern: Regular Respiration Rate 18 /min Comments: Pattern: Unlabored BP Systolic 122 mm[Hg] Comments: Patient Position: Sitting; Cuff Location: Left Arm; Cuff Size: Large BP Diastolic 68 mm[Hg] Comments: Patient Position: Sitting; Cuff Location: Left Arm; Cuff Size: Large Weight 172.4375 lb Height 60 in Body Mass Index Calculated 33.68 kg/m2 Body Surface Area Calculated 1.75 m2 :19 Pulse 68 /min Comments: Pattern: Regular Respiration Rate 16 /min Comments: Pattern: Unlabored BP Systolic 100 mm[Hg] Comments: Patient Position: Sitting; Cuff Location: Left Arm; Cuff Size: Standard BP Diastolic 64 mm[Hg] Comments: Patient Position: Sitting; Cuff Location: Left Arm; Cuff Size: Standard Weight 174.1875 lb Height 60 in Body Mass Index Calculated 34.02 kg/m2 Body Surface Area Calculated 1.76 m2 :30 Temperature 97.4 f Comments: Method: Oral Pulse 67 /min Comments: Pattern: Regular O2 SAT 98 % Comments: Room air BP Systolic 132 mm[Hg] Comments: Patient Position: Sitting; Cuff Location: Left Arm; Cuff Size: Standard BP Diastolic 72 mm[Hg] Comments: Patient Position: Sitting; Cuff Location: Left Arm; Cuff Size: Standard Weight 172.375 lb Height 60 in Body Mass Index Calculated 33.66 kg/m2 Body Surface Area Calculated 1.75 m2 :42 Pulse 64 /min Comments: Pattern: Regular Respiration Rate 20 /min Comments: Pattern: Unlabored BP Systolic 122 mm[Hg] Comments: Patient Position: Sitting; Cuff Location: Left Arm; Cuff Size: Standard BP Diastolic 78 mm[Hg] Comments: Patient Position: Sitting; Cuff Location: Left Arm; Cuff Size: Standard Weight 172.375 lb Height 60 in Body Mass Index Calculated 33.66 kg/m2 Body Surface Area Calculated 1.75 m2 :44 Temperature 97.9 f Comments: Method: Oral Pulse 80 /min Comments: Pattern: Regular Respiration Rate 16 /min Comments: Pattern: Unlabored BP Systolic 114 mm[Hg] Comments: Patient Position: Sitting; Cuff Location: Left Arm; Cuff Size: Large BP Diastolic 64 mm[Hg] Comments: Patient Position: Sitting; Cuff Location: Left Arm; Cuff Size: Large Weight 175 lb Height 60 in Body Mass Index Calculated 34.18 kg/m2 Body Surface Area Calculated 1.76 m2 :30 Pulse 72 /min Comments: Pattern: Regular Respiration Rate 20 /min Comments: Pattern: Unlabored BP Systolic 120 mm[Hg] Comments: Patient Position: Sitting; Cuff Location: Left Arm; Cuff Size: Large BP Diastolic 64 mm[Hg] Comments: Patient Position: Sitting; Cuff Location: Left Arm; Cuff Size: Large Weight 175.4375 lb Height 60 in Body Mass Index Calculated 34.26 kg/m2 Body Surface Area Calculated 1.77 m2 :12 Temperature 98.1 f Comments: Method: Oral Pulse 80 /min Comments: Pattern: Regular Respiration Rate 16 /min Comments: Pattern: Unlabored BP Systolic 132 mm[Hg] Comments: Patient Position: Supine; Cuff Location: Left Arm; Cuff Size: Standard BP Diastolic 64 mm[Hg] Comments: Patient Position: Supine; Cuff Location: Left Arm; Cuff Size: Standard Weight 179.0625 lb Height 60 in Body Mass Index Calculated 34.97 kg/m2 Body Surface Area Calculated 1.78 m2 :16 Temperature 98.6 f Comments: Method: Oral Pulse 84 /min Comments: Pattern: Regular Respiration Rate 16 /min Comments: Pattern: Unlabored :40 Pulse 60 /min Comments: Pattern: Regular Respiration Rate 16 /min Comments: Pattern: Unlabored BP Systolic 128 mm[Hg] Comments: Patient Position: Sitting; Cuff Location: Left Arm; Cuff Size: Large BP Diastolic 80 mm[Hg] Comments: Patient Position: Sitting; Cuff Location: Left Arm; Cuff Size: Large Weight 183.25 lb Height 61 in Body Mass Index Calculated 34.62 kg/m2 Body Surface Area Calculated 1.82 m2 :22 Pulse 64 /min Comments: Pattern: Regular Respiration Rate 20 /min Comments: Pattern: Unlabored BP Systolic 130 mm[Hg] Comments: Patient Position: Sitting; Cuff Location: Left Arm; Cuff Size: Large BP Diastolic 68 mm[Hg] Comments: Patient Position: Sitting; Cuff Location: Left Arm; Cuff Size: Large Weight 182 lb Height 61 in Body Mass Index Calculated 34.39 kg/m2 Body Surface Area Calculated 1.82 m2 :55 Pulse 60 /min Comments: Pattern: Regular Respiration Rate 20 /min Comments: Pattern: Unlabored BP Systolic 142 mm[Hg] Comments: Patient Position: Sitting; Cuff Location: Left Arm; Cuff Size: Large BP Diastolic 60 mm[Hg] Comments: Patient Position: Sitting; Cuff Location: Left Arm; Cuff Size: Large Weight 177.0625 lb Height 61 in Body Mass Index Calculated 33.46 kg/m2 Body Surface Area Calculated 1.79 m2 :55 Comments: pt home diaries are good Temperature 98.6 f Comments: Method: Oral Pulse 80 /min Comments: Pattern: Regular Respiration Rate 20 /min Comments: Pattern: Unlabored BP Systolic 142 mm[Hg] Comments: Patient Position: Sitting; Cuff Location: Left Arm; Cuff Size: Large BP Diastolic 60 mm[Hg] Comments: Patient Position: Sitting; Cuff Location: Left Arm; Cuff Size: Large Weight 170.5 lb Height 61 in Body Mass Index Calculated 32.22 kg/m2 Body Surface Area Calculated 1.77 m2 :13 Temperature 98.2 f Comments: Method: Oral Pulse 68 /min Comments: Pattern: Regular Respiration Rate 20 /min Comments: Pattern: Unlabored BP Systolic 128 mm[Hg] Comments: Patient Position: Sitting; Cuff Location: Left Arm; Cuff Size: Large BP Diastolic 78 mm[Hg] Comments: Patient Position: Sitting; Cuff Location: Left Arm; Cuff Size: Large Weight 174.25 lb Height 61 in Body Mass Index Calculated 32.92 kg/m2 Body Surface Area Calculated 1.78 m2 :36 Temperature 98.7 f Comments: Method: Oral Pulse 76 /min Comments: Pattern: Regular Respiration Rate 18 /min Comments: Pattern: Unlabored BP Systolic 120 mm[Hg] Comments: Patient Position: Sitting; Cuff Location: Left Arm; Cuff Size: Standard BP Diastolic 72 mm[Hg] Comments: Patient Position: Sitting; Cuff Location: Left Arm; Cuff Size: Standard Weight 185.0625 lb Height 61 in Body Mass Index Calculated 34.97 kg/m2 Body Surface Area Calculated 1.83 m2 :35 Pulse 76 /min Comments: Pattern: Regular Respiration Rate 20 /min Comments: Pattern: Unlabored BP Systolic 120 mm[Hg] Comments: Patient Position: Sitting; Cuff Location: Left Arm; Cuff Size: Large BP Diastolic 68 mm[Hg] Comments: Patient Position: Sitting; Cuff Location: Left Arm; Cuff Size: Large Weight 185.0625 lb Height 61 in Body Mass Index Calculated 34.97 kg/m2 Body Surface Area Calculated 1.83 m2 :15 Pulse 80 /min Comments: Pattern: Regular Respiration Rate 18 /min Comments: Pattern: Unlabored BP Systolic 120 mm[Hg] Comments: Patient Position: Sitting; Cuff Location: Left Arm; Cuff Size: Large BP Diastolic 62 mm[Hg] Comments: Patient Position: Sitting; Cuff Location: Left Arm; Cuff Size: Large Weight 189.5625 lb Height 61 in Body Mass Index Calculated 35.82 kg/m2 Body Surface Area Calculated 1.85 m2 :23 Pulse 68 /min Comments: Pattern: Regular Respiration Rate 20 /min Comments: Pattern: Unlabored BP Systolic 118 mm[Hg] Comments: Patient Position: Sitting; Cuff Location: Left Arm; Cuff Size: Large BP Diastolic 78 mm[Hg] Comments: Patient Position: Sitting; Cuff Location: Left Arm; Cuff Size: Large Weight 195.125 lb Height 61 in Body Mass Index Calculated 36.87 kg/m2 Body Surface Area Calculated 1.87 m2 :20 Pulse 76 /min Comments: Pattern: Regular Respiration Rate 20 /min Comments: Pattern: Unlabored BP Systolic 140 mm[Hg] Comments: Patient Position: Sitting; Cuff Location: Left Arm; Cuff Size: Large BP Diastolic 76 mm[Hg] Comments: Patient Position: Sitting; Cuff Location: Left Arm; Cuff Size: Large Weight 201.25 lb Height 61 in Body Mass Index Calculated 38.03 kg/m2 Body Surface Area Calculated 1.89 m2 :19 Comments: after 3 min of Walk assessment. Pt unable to complete full 6 minutes Pulse 100 /min Comments: Pattern: Regular Respiration Rate 24 /min Comments: Pattern: Wheezing O2 SAT 93 % Comments: Room air BP Systolic 142 mm[Hg] Comments: Patient Position: Supine; Cuff Location: Left Arm; Cuff Size: Standard BP Diastolic 76 mm[Hg] Comments: Patient Position: Supine; Cuff Location: Left Arm; Cuff Size: Standard :18 Comments: prior to 6MWAT Pulse 92 /min Comments: Pattern: Regular O2 SAT 90 % Comments: Room air BP Systolic 140 mm[Hg] Comments: Patient Position: Supine; Cuff Location: Left Arm; Cuff Size: Standard BP Diastolic 78 mm[Hg] Comments: Patient Position: Supine; Cuff Location: Left Arm; Cuff Size: Standard Weight 210 lb Height 61 in Body Mass Index Calculated 39.68 kg/m2 Body Surface Area Calculated 1.93 m2 :35 Temperature 97.6 f Comments: Method: Oral Pulse 68 /min Comments: Pattern: Regular Respiration Rate 20 /min Comments: Pattern: Unlabored BP Systolic 148 mm[Hg] Comments: Patient Position: Sitting; Cuff Location: Left Arm; Cuff Size: Large BP Diastolic 82 mm[Hg] Comments: Patient Position: Sitting; Cuff Location: Left Arm; Cuff Size: Large Weight 213.0625 lb Height 61 in Body Mass Index Calculated 40.26 kg/m2 Body Surface Area Calculated 1.94 m2 :30 Temperature 98.2 f Comments: Method: Oral Pulse 92 /min Comments: Pattern: Regular Respiration Rate 20 /min Comments: Pattern: Unlabored O2 SAT 96 % Comments: Room air BP Systolic 160 mm[Hg] Comments: Patient Position: Sitting; Cuff Location: Left Arm; Cuff Size: Large BP Diastolic 96 mm[Hg] Comments: Patient Position: Sitting; Cuff Location: Left Arm; Cuff Size: Large Weight 210 lb Height 61 in Body Mass Index Calculated 39.68 kg/m2 Body Surface Area Calculated 1.93 m2 :16 Temperature 99.3 f Comments: Method: Oral Pulse 88 /min Comments: Pattern: Regular Respiration Rate 16 /min Comments: Pattern: Unlabored BP Systolic 116 mm[Hg] Comments: Patient Position: Sitting; Cuff Location: Left Arm; Cuff Size: Large BP Diastolic 78 mm[Hg] Comments: Patient Position: Sitting; Cuff Location: Left Arm; Cuff Size: Large Weight 199.375 lb Height 61 in Body Mass Index Calculated 37.67 kg/m2 Body Surface Area Calculated 1.89 m2 :15 Temperature 97.6 f Comments: Method: Oral Pulse 72 /min Comments: Pattern: Regular Respiration Rate 20 /min Comments: Pattern: Unlabored BP Systolic 136 mm[Hg] Comments: Patient Position: Sitting; Cuff Location: Left Arm; Cuff Size: Large BP Diastolic 80 mm[Hg] Comments: Patient Position: Sitting; Cuff Location: Left Arm; Cuff Size: Large Weight 200.5625 lb :25 Temperature 97.3 f Comments: Method: Oral Pulse 80 /min Comments: Pattern: Regular Respiration Rate 18 /min Comments: Pattern: Unlabored O2 SAT 97 % Comments: Room air BP Systolic 124 mm[Hg] Comments: Patient Position: Sitting; Cuff Location: Left Arm; Cuff Size: Standard BP Diastolic 70 mm[Hg] Comments: Patient Position: Sitting; Cuff Location: Left Arm; Cuff Size: Standard Weight 202.375 lb :05 Comments: post aerosol tx spo2 97% Pulse 91 /min Comments: Pattern: Regular Respiration Rate 20 /min Comments: Pattern: Unlabored O2 SAT 94 % Comments: Room air BP Systolic 122 mm[Hg] Comments: Patient Position: Sitting; Cuff Location: Left Arm; Cuff Size: Standard BP Diastolic 58 mm[Hg] Comments: Patient Position: Sitting; Cuff Location: Left Arm; Cuff Size: Standard :52 Pulse 82 /min Comments: Pattern: Regular Respiration Rate 18 /min Comments: Pattern: Unlabored BP Systolic 124 mm[Hg] Comments: Patient Position: Sitting; Cuff Location: Left Arm; Cuff Size: Standard BP Diastolic 68 mm[Hg] Comments: Patient Position: Sitting; Cuff Location: Left Arm; Cuff Size: Standard :49 Pulse 60 /min Comments: Pattern: Regular Respiration Rate 20 /min Comments: Pattern: Unlabored BP Systolic 120 mm[Hg] Comments: Patient Position: Sitting; Cuff Location: Left Arm; Cuff Size: Large BP Diastolic 62 mm[Hg] Comments: Patient Position: Sitting; Cuff Location: Left Arm; Cuff Size: Large Weight 189.3125 lb Height 61 in Body Mass Index Calculated 35.77 kg/m2 Body Surface Area Calculated 1.85 m2 :07 Temperature 97.2 f Comments: Method: Oral Pulse 80 /min Comments: Pattern: Regular Respiration Rate 19 /min Comments: Pattern: Unlabored BP Systolic 128 mm[Hg] Comments: Patient Position: Sitting; Cuff Location: Left Arm; Cuff Size: Standard BP Diastolic 78 mm[Hg] Comments: Patient Position: Sitting; Cuff Location: Left Arm; Cuff Size: Standard Weight 187.3125 lb Height 61 in Body Mass Index Calculated 35.39 kg/m2 Body Surface Area Calculated 1.84 m2 :35 Pulse 60 /min Comments: Pattern: Regular Respiration Rate 20 /min Comments: Pattern: Unlabored BP Systolic 124 mm[Hg] Comments: Patient Position: Sitting; Cuff Location: Left Arm; Cuff Size: Large BP Diastolic 80 mm[Hg] Comments: Patient Position: Sitting; Cuff Location: Left Arm; Cuff Size: Large Weight 187.3125 lb Height 61 in Body Mass Index Calculated 35.39 kg/m2 Body Surface Area Calculated 1.84 m2 33-Jxi-534877:06 Pulse 64 /min Comments: Pattern: Regular Respiration Rate 20 /min Comments: Pattern: Unlabored BP Systolic 120 mm[Hg] Comments: Patient Position: Sitting; Cuff Location: Left Arm; Cuff Size: Large BP Diastolic 62 mm[Hg] Comments: Patient Position: Sitting; Cuff Location: Left Arm; Cuff Size: Large Weight 186 lb Height 61 in Body Mass Index Calculated 35.14 kg/m2 Body Surface Area Calculated 1.83 m2 Results Date Description Value Details :59 URIC ACID BLOOD (25307) Comments: PATIENT NOT FASTINGPERFORMED BY: [facility] [id number] [facility] [id number] Uric Acid 8.7 mg/dL (Abnormal) Range: 2.5-7.1 Comments: Therapeutic target for gout patients: <6.0 :34 HgA1C , Office (17673) HgA1C , Office 6.5 % (Normal) Range: 4.6 - 7.1 :33 Blood Glucose , Office (44287) Blood Glucose , Office 103 (Normal) 64-Zsh-693504:32 Basic Metabolic Profile (BMP) Comments: [facility] [address] [place], [address] GAP 3 (Abnormal) Range: 5-15 CO2 31.0 mmol/L (Normal) Range: 21.0-32.0 CL 104 mmol/L (Normal) Range: 98-107 K 4.4 mmol/L (Normal) Range: 3.5-5.1 NA 138 mmol/L (Normal) Range: 136-145 CA 8.7 mg/dL (Normal) Range: 8.5-10.1 BUN/CRE 18.4 {RATIO} (Normal) Range: 10-20 EST GFR - AA 48 mL/min (Abnormal) Comments: GFR Calc EST GFR 40 mL/min (Abnormal) Comments: Non- GFR Calc CREAT,SERUM 1.41 mg/dL (Abnormal) Range: 0.55-1.02 Comments: The validity of the calculated GFR AND GFRAA in patients over70 years has not been determined. Clinical correlation isessential. BUN 26 mg/dL (Abnormal) Range: 7-18 GLU 112 mg/dL (Abnormal) Range: 74-106 Comments: Fasting Glucose result from 100 to 125 mg/dLsuggests IMPAIRED HOMEOSTASIS per A.D.A. criteria.Please note revised GLUCOSE reference range cnqjzyboz37/02/2018. :36 HgA1C , Office (29427) HgA1C , Office 6.6 % (Normal) Range: 4.6 - 7.1 :36 Blood Glucose , Office (00069) Blood Glucose , Office 186 (Normal) Comments: not fasting 6-Lmw-427530:28 Miscellaneous Lab Procedure Comments: Comments: TRAMADOL URINE [id number](s) Ordered: URINE TOXICOLOGY [id number] RUN [facility] [id number] [facility] [place], [address] [facility] Comments: [id number] 6+OXYCODONE-BUND (ng/mL)DRUG RESULT SCREEN CUTOFF____ Amphetamines,Urine Negat LAB (Normal) emy ng/mL 1000Amphetamine test includes Amphetamine and Methamphetamine.Barbiturates Negative ng/mL 200Benzodiazepines Negative ng/mL 200Cannabinoid TEST Negative ng/mL 20Cocaine (Metab) Negative ng/mL 300Opiates Negative ng/mL 300 Opiates test includes Codeine, Morphine, Hydromorphone, [place] codone.Oxycodone/Oxymorphone,Urine Negative ng/mL 300 Test includes Oxydodone and Oxymorphone. TESTING PERFORMED AT [facility]. ORIGINAL REPORT ON FILE IN LAB CONTAINS ADDITIONAL TEST SITE INFORMATION. 4-Rwo-186153:28 Miscellaneous Lab Procedure 2 Comments: Comments: TRAMADOL URINE [id number] Test(s) Ordered by Physician: URINE TOXICOLOGY [id number] RUN [facility] [id number] [place] [place], [id number] [facility] Comments: TEST RESULT LIMITSTramadol Positive Cutoff = 200 Tramadol GC/MS COnf 6050 ng/mL Cutoff = 100 LAB (Normal) TESTING PERFORMED AT [facility]. ORIGINAL REPORT ON FILE IN LAB CONTAINS ADDITIONAL TEST SITE INFORMATION. TEST 2 [id number]-Xsc-[id number]:28 Urine Drug Screen (VISTA) Comments: Comments: TRAMADOL URINE [id number] of Drugs Taken or Suspected? [facility] [address] [place], [place], [id number] THC NEGATIVE (Normal) PCP NEGATIVE (Normal) OPIATES NEGATIVE (Normal) METHADONE NEGATIVE (Normal) ECSTACY NEGATIVE (Normal) COCAINE NEGATIVE (Normal) BENZODIAZIPINE NEGATIVE (Normal) BARBITIURATES NEGATIVE (Normal) AMPHETAMINES NEGATIVE (Normal) VISTA UDS PH 7 (Normal) TO BE CONFIRMED (Normal) Comments: CONFIRMATORY TESTING FOR ALL POSITIVE URINE DRUG SCREENRESULTS WILL ONLY BE SENT OUT UPON PHYSICIAN ORDER.VISTA Urine Drug Screen methods provide only preliminaryanalytical test results. A more specific alternate chemicalmethod must be used in order to obtain a confirmedanalytical result. Gas chromatography/mass spectrometery(GC/MS) is the preferred confirmatory method. Clinicalconsideration and profe ssional judgement should be appliedto any drug of abuse test result, particularly whenpreliminary positive results are used.URINE TCA TESTING MUST BE ORDERED SEPARATELY. USE TESTMNEMONIC: [facility] 34-Fob-964495:14 CBC-Complete Blood Cnt No Diff Comments: [facility] [address] [place], [phone] MPV 9.5 fL (Normal) Range: 6.2-12.0 PLT 258 K/mm3 (Normal) Range: 150-450 RDW SD 50.1 fL (Abnormal) Range: 35.1-43.9 RDW CV 14.6 % (Normal) Range: 11.6-14.6 MCHC 31.3 {g/gl} (Abnormal) Range: 32-36 MCH 29.6 pg (Normal) Range: 27.0-32.0 MCV 94.7 fL (Normal) Range: 81-99 HCT 42.5 % (Normal) Range: 37-47 HGB 13.3 g/dL (Normal) Range: 12.0-15.0 RBC 4.49 {M/mm3} (Normal) Range: 4.2-5.4 WBC 9.7 K/mm3 (Normal) Range: 4.4-11.0 97-Ggs-377585:14 Magnesium Comments: [facility] [address] [place], [phone] MG 1.7 mg/dL (Normal) Range: 1.6-2.6 24-Yun-846687:14 Microalb:Creat Ratio,Random UR Comments: [facility] [address] [place], [address] MALB:CREAT 5.5 {mg/g_CRE} (Normal) MICROALBUMIN,UR 6.1 mg/L (Normal) UR CREAT 111.00 mg/dL (Normal) 01-Aka-073349:1 PTHIN 25.7 pg/mL (Normal) Comments: [address] [place], [id number] 4 Range: 18.4-80.1 Comments: Please Note: PTH INTACT METHOD AND REFERENCE RANGE CHANGEEffective 11/18/2017. 73-Ssi-188380:14 Renal Profile Comments: [facility] [address] [place], [id number] CO2 27.0 mmol/L (Normal) Range: 21.0-32.0 CL 107 mmol/L (Normal) Range: 98-107 K 3.9 mmol/L (Normal) Range: 3.5-5.1 NA 143 mmol/L (Normal) Range: 136-145 PHOS 2.1 mg/dL (Abnormal) Range: 2.5-4.9 CA 9.8 mg/dL (Normal) Range: 8.5-10.1 ALB 3.4 g/dL (Normal) Range: 3.2-5.0 BUN/CRE 19.1 {RATIO} (Normal) Range: 10-20 EST GFR - AA 44 mL/min (Abnormal) Comments: GFR Calc EST GFR 36 mL/min (Abnormal) Comments: Non- GFR Calc CREAT,SERUM 1.52 mg/dL (Abnormal) Range: 0.55-1.02 Comments: The validity of the calculated GFR AND GFRAA in patients over70 years has not been determined. Clinical correlation isessential. BUN 29 mg/dL (Abnormal) Range: 7-18 GLU 107 mg/dL (Abnormal) Range: 74-106 Comments: Fasting Glucose result from 100 to 125 mg/dLsuggests IMPAIRED HOMEOSTASIS per A.D.A. criteria.Please note revised GLUCOSE reference range jjngdjgle18/02/2018. 97-Hdm-864928:14 Uric Acid Comments: [facility] [address] [place], [id number] URIC 8.4 mg/dL (Abnormal) Range: 2.6-6.0 Comments: The drugs N-Acetylcysteine and Metamizole may falselydepress this assay. 36-Ukx-841442:14 Vitamin D,25 Hydroxy Comments: [facility] [address] [place], [id number] Vitamin D 25-OH 36.6 ng/mL (Normal) Range: 29.95-100.01 Comments: Vitamin D 25(OH) Status Range Deficiency <20 ng/mL (50nmol/L) Insuffciency 20 - 30 ng/mL (50 - 75 nmol/L) Sufficiency 30 - 100 ng/mL (75 - 250 nmol/L) Toxicity >100 ng/mL (>250 nmol/L) 65-Ujp-43460:27 HgA1C , Office (74701) HgA1C , Office 6.7 % (Normal) Range: 4.6 - 7.1 3-Otc-250641:13 Bedside Glucose Comments: [facility] [address] [place] [address] BEDSIDE GLU 132 mg/dL (Abnormal) Range: 70-110 Comments: MANAGEMENT OF PATIENT CARE PER NURSING PROTOCOL 08-Jan-20180:00 Culture, Bronch Aveolar Lavage Comments: [facility] [address] [place], [address] CUBRL See Note (Normal) Comments: List Antibiotics Last 48 Hours? .List Antibiotics to be Started? .Gram StainGram Stain No White Blood Cells No organisms seen Resp. CultureMixed normal respiratory hermelindo. No Haemophilus, Streptoc occus pneumoniae, beta-hemolytic Streptococcus or Staphylococcus aureus isolated. 24-Bui-105931:06 HgA1C , Office (49679) HgA1C , Office 8.2 % (Abnormal) Range: 4.6 - 7.1 07-Qzk-259427:06 Blood Glucose , Office (30546) Blood Glucose , Office 168 (Normal) 23-Dvk-433392:00 Culture, Fungus 8482 Comments: [place] [address] [place], [address] CUF See Note Comments: PER ORDER, SPUTUM SMEAR/CULTURE FUNGAS Cu,[id number] TESTING PERFORMED AT [facility]. ORIGINAL REPORT ON FILE IN LAB CONTAINS NEO TIONAL TEST (Normal) SITE INFORMATION. CUF Positive Fungus Culture ORGANISM 1: Yana albicansAmount Growth Growth 57-Puy-682183:00 Culture, Sputum Comments: [facility] [address] [place], [place], [id number] CUSP See Note (Normal) Comments: PER ORDER, SPUTUM SMEAR/CULTURE FUNGAS Gram StainAcceptable Specimen? Yes (<25 Epithelial cells per/lpf) Gram Stain 1+ White Blood Cells 1+ Epithelial cells 1+ Gram positive cocci Resp. CultureMixed normal respiratory hermelindo. No Haemophilus, Streptococcus pneumoniae, beta-hemolytic Streptococcus or Staphylococcus aureus isolated. 09-Fbu-464534:49 BNP,B-Type NATRIURETIC PEPTIDE Comments: [facility] [address] [place], [address] B-TYPE EB PEP 41.7 pg/mL (Normal) Range: 0-100 50-Bni-516243:30 Rapid Flu (33455 x 2) Influenza A Ag neg (Normal) 5-Mlh-615157:14 Bedside Glucose Comments: [facility] [address] [place] [address] BEDSIDE GLU 151 mg/dL (Abnormal) Range: 70-110 Comments: MANAGEMENT OF PATIENT CARE PER NURSING PROTOCOL 07-Dec-20170:00 Culture, Bronch Aveolar Lavage Comments: [facility] [address] [place], [address] CUBRL See Note (Normal) Comments: List Antibiotics Last 48 Hours? .List Antibiotics to be Started? .Gram StainGram Stain 1+ White Blood Cells Rare Gram positive cocci in chains Rare Gram negative rods Resp. CultureORGANISM 1: Panto ea speciesAmount Growth 1+ Pantoea species: REACTION Amoxacillin/Clavulanic Acid $ <=2 R Cefazolin $ <=4 R Cefepime $ <=1 S Ceftazidime *NF 16 I Ceftriaxone $ <=1 S Ciprofloxacin $ <=0.25 S Ertapenim $$$ <=0.5 S Gentamicin $ <=1 S Imipenem *NF <=0.25 S Levofloxa bridget $ <=0.12 S Piperacillin/Tazobactam $$ <=4 S Tobramycin $ <=1 S Trimethoprim/Sulfametho $ <=20 S(NF) indicates non-formulary drug at [facility]. Approval by Infectious Disease Specialist required before non-formulary drugs may be ordered and/or dispensed. 5-Gux-765525:27 CBC-Complete Blood Cnt No Diff Comments: [facility] [address] [place], [place], [id number] MPV 10.0 fL (Normal) Range: 6.2-12.0 PLT 227 K/mm3 (Normal) Range: 150-450 RDW SD 52.5 fL (Abnormal) Range: 35.1-43.9 RDW CV 15.0 % (Abnormal) Range: 11.6-14.6 MCHC 31.0 {g/gl} (Abnormal) Range: 32-36 MCH 29.7 pg (Normal) Range: 27.0-32.0 MCV 96.0 fL (Normal) Range: 81-99 HCT 45.5 % (Normal) Range: 37-47 HGB 14.1 g/dL (Normal) Range: 12.0-15.0 RBC 4.74 {M/mm3} (Normal) Range: 4.2-5.4 WBC 14.0 K/mm3 (Abnormal) Range: 4.4-11.0 2-Ygt-553584:27 Hemoglobin A1c Comments: [facility] [address] [place], [place], [id number] HGB A1C 7.9 % (Abnormal) Range: 4.2-6.3 0-Wjx-705758:27 Magnesium Comments: [facility] [address] [place], [place], [id number] MG 1.9 mg/dL (Normal) Range: 1.8-2.4 8-Vru-823148:27 Microalb:Creat Ratio,Random UR Comments: [facility] [address] [place], [place], [id number] MALB:CREAT 12.0 {mg/g_CRE} (Normal) MICROALBUMIN,UR 11.1 mg/L (Normal) UR CREAT 92.40 mg/dL (Normal) 3-Efw-997157:27 PTHIN 83.3 pg/mL (Abnormal) Comments: [facility] [address] [place], [id number] Range: 18.4-80.1 Comments: Please Note: PTH INTACT METHOD AND REFERENCE RANGE CHANGEEffective 11/18/2017. 0-Sva-627141:27 Renal Profile Comments: [facility] [address] [place], [id number] CO2 24.0 mmol/L (Normal) Range: 21.0-32.0 CL 105 mmol/L (Normal) Range: 98-107 K 3.9 mmol/L (Normal) Range: 3.5-5.1 NA 140 mmol/L (Normal) Range: 136-145 PHOS 1.8 mg/dL (Abnormal) Range: 2.5-4.9 CA 8.8 mg/dL (Normal) Range: 8.5-10.1 ALB 3.5 g/dL (Normal) Range: 3.4-5.0 Comments: Please note revised Albumin AND Globulin reference rangeeffective 2017. BUN/CRE 14.5 {RATIO} (Normal) Range: 10-20 EST GFR - AA 36 mL/min (Abnormal) Comments: GFR Calc EST GFR 30 mL/min (Abnormal) Comments: Non- GFR Calc CREAT,SERUM 1.79 mg/dL (Abnormal) Range: 0.55-1.02 Comments: The validity of the calculated GFR AND GFRAA in patients over70 years has not been determined. Clinical correlation isessential. BUN 26 mg/dL (Abnormal) Range: 7-18 GLU 230 mg/dL (Abnormal) Range: 70-110 Comments: Glucose result greater than or equal to 200 mg/dLsuggests DIABETES MELLITUS per A.D.A. criteria. 1-Mnm-633086:27 Uric Acid Comments: [facility] [address] [place], [id number] URIC 9.0 mg/dL (Abnormal) Range: 2.6-6.0 Comments: The drugs N-Acetylcysteine and Metamizole may falselydepress this assay. 0-Nwk-322360:27 Vitamin D,25 Hydroxy Comments: [facility] [address] [place], [id number] Vitamin D 25-OH 34.1 ng/mL (Normal) Comments: Vitamin D 25(OH) Status Range Deficiency <20 ng/mL (50nmol/L) Insuffciency 20 - 30 ng/mL (50 - 75 nmol/L) Sufficiency 30 - 100 ng/mL (75 - 250 nmol/L) Toxicity >100 ng/mL (>250 nmol/L) 20-Nff-84692:22 THROAT CULTURE (33121) Comments: PATIENT NOT FASTINGPERFORMED BY: [facility]xrolk1382 [facility] [id number] Information: SRC:TH Result 1 RRF (Normal) Comments: Routine respiratory hermelindo Upper Respiratory Culture Final report (Normal) 89-Bgf-534860:09 Rapid Flu (63435 x 2) Comments: Negative Influenza A Ag negative (Normal) 40-Yqq-665850:09 Rapid Strep Test, Office (80641) Comments: Negative Rapid Strep Test, Office Negative (Normal) 28-Xfv-049740:52 Microscopic Examination Comments: PATIENT WAS FASTINGPERFORMED BY: [facility] Ficezk6877 [facility] [id number] Bacteria None seen (Normal) Mucus Threads Present (Normal) Epithelial Cells (non renal) 0-10 {/hpf} (Normal) Range: 0 - 10 RBC 0-2 {/hpf} (Normal) Range: 0 - 2 WBC 0-5 {/hpf} (Normal) Range: 0 - 5 05-Ism-144345:08 Magnesium Comments: [facility] [facility] [address] [place], [id number](049 MG 1.9 mg/dL (Normal) Range: 1.8-2.4 41-Xcf-181050:08 Microalb:Creat Ratio,Random UR Comments: [facility] [address] [place], [id number] MALB:CREAT 8.5 {mg/g_CRE} (Normal) MICROALBUMIN,UR 5.2 mg/L (Normal) UR CREAT 61.10 mg/dL (Normal) :08 PTH,INTACT Comments: [facility] [address] [place], [id number] PTH,Intact 40 pg/mL (Normal) Range: 14-72 :08 Renal Profile Comments: [facility] [address] [place], [id number] CO2 23.0 mmol/L (Normal) Range: 21.0-32.0 CL 106 mmol/L (Normal) Range: 98-107 K 3.7 mmol/L (Normal) Range: 3.5-5.1 NA 141 mmol/L (Normal) Range: 136-145 PHOS 2.5 mg/dL (Normal) Range: 2.5-4.9 CA 9.2 mg/dL (Normal) Range: 8.5-10.1 ALB 3.5 g/dL (Normal) Range: 3.4-5.0 BUN/CRE 17.0 {RATIO} (Normal) Range: 10-20 EST GFR - AA 34 mL/min (Abnormal) Comments: GFR Calc EST GFR 28 mL/min (Abnormal) Comments: Non- GFR Calc CREAT,SERUM 1.88 mg/dL (Abnormal) Range: 0.55-1.02 Comments: The validity of the calculated GFR AND GFRAA in patients over70 years has not been determined. Clinical correlation isessential. BUN 32 mg/dL (Abnormal) Range: 7-18 GLU 137 mg/dL (Abnormal) Range: 70-110 Comments: Fasting Glucose result greater than or equal to 126 mg/dLsuggests DIABETES MELLITUS per A.D.A. criteria. :08 Uric Acid Comments: [facility] [address] [place], [id number] URIC 8.0 mg/dL (Abnormal) Range: 2.6-6.0 Comments: The drugs N-Acetylcysteine and Metamizole may falselydepress this assay. :08 Vitamin D,25 Hydroxy Comments: [facility] [address] [place], [id number] Vitamin D 25-OH 27.6 ng/mL (Normal) Comments: Vitamin D 25(OH) Status Range Deficiency <20 ng/mL (50nmol/L) Insuffciency 20 - 30 ng/mL (50 - 75 nmol/L) Sufficiency 30 - 100 ng/mL (75 - 250 nmol/L) Toxicity >100 ng/mL (>250 nmol/L) :52 URINALYSIS, W/ MICRO (39011) Comments: PATIENT WAS FASTINGPERFORMED BY: FAZUA Wu [facility] [id number] Microscopic Examination See below: (Normal) Comments: Microscopic was indicated and was performed. Nitrite, Urine Negative (Normal) Urobilinogen,Semi-Qn 0.2 mg/dL (Normal) Range: 0.2-1.0 Bilirubin Negative (Normal) Occult Blood Negative (Normal) Ketones Negative (Normal) Glucose 1+ (Abnormal) Protein Negative (Normal) WBC Esterase 1+ (Abnormal) Appearance Clear (Normal) Urine-Color Yellow (Normal) pH 6.5 (Normal) Range: 5.0-7.5 Specific Preston 1.023 (Normal) Range: 1.005-1.030 16-Yxg-005699:52 MICROALBUMIN: CREATININE RATIO Comments: PATIENT WAS FASTINGPERFORMED BY: FAZUA Wu [facility] [id number] ([id number]) AND (92261) Microalb/Creat Ratio 7.6 {mg/g_creat} (Normal) Range: 0.0-30.0 Microalbumin, Urine 6.8 ug/mL (Normal) Creatinine, Urine 89.4 mg/dL (Normal) 02-Uee-407929:52 METABOLIC PANEL, COMPREHENSIVE Comments: PATIENT WAS FASTINGPERFORMED BY: [facility]70 [facility] [id number] ([id number]) ALT (SGPT) 22 [iU]/L (Normal) Range: 0-32 AST (SGOT) 12 [iU]/L (Normal) Range: 0-40 Alkaline Phosphatase, S 43 [iU]/L (Normal) Range: 39-117 Bilirubin, Total 0.5 mg/dL (Normal) Range: 0.0-1.2 A/G Ratio 2.3 (Abnormal) Range: 1.2-2.2 Globulin, Total 1.9 g/dL (Normal) Range: 1.5-4.5 Albumin, Serum 4.3 g/dL (Normal) Range: 3.6-4.8 Protein, Total, Serum 6.2 g/dL (Normal) Range: 6.0-8.5 Calcium, Serum 10.0 mg/dL (Normal) Range: 8.7-10.3 Carbon Dioxide, Total 18 mmol/L (Normal) Range: 18-29 Chloride, Serum 104 mmol/L (Normal) Range: 96-106 Potassium, Serum 5.0 mmol/L (Normal) Range: 3.5-5.2 Sodium, Serum 142 mmol/L (Normal) Range: 134-144 BUN/Creatinine Ratio 24 (Normal) Range: 12-28 eGFR If Africn Am 34 mL/min/1.73 (Abnormal) eGFR If NonAfricn Am 30 mL/min/1.73 (Abnormal) Creatinine, Serum 1.77 mg/dL (Abnormal) Range: 0.57-1.00 BUN 43 mg/dL (Abnormal) Range: 8-27 Glucose, Serum 99 mg/dL (Normal) Range: 65-99 74-Aol-152989:52 CBC W/AUTO DIFF WBC (87088) Comments: PATIENT WAS FASTINGPERFORMED BY: [facility]Co[facility] HealthCareEvofpz3176 [facility] [id number] Immature Grans (Abs) 0.0 {x10E3/uL} (Normal) Range: 0.0-0.1 Immature Granulocytes 0 % (Normal) Baso (Absolute) 0.0 {x10E3/uL} (Normal) Range: 0.0-0.2 Eos (Absolute) 0.1 {x10E3/uL} (Normal) Range: 0.0-0.4 Monocytes(Absolute) 1.0 {x10E3/uL} (Abnormal) Range: 0.1-0.9 Lymphs (Absolute) 1.7 {x10E3/uL} (Normal) Range: 0.7-3.1 Neutrophils (Absolute) 9.6 {x10E3/uL} (Abnormal) Range: 1.4-7.0 Basos 0 % (Normal) Eos 1 % (Normal) Monocytes 8 % (Normal) Lymphs 13 % (Normal) Neutrophils 78 % (Normal) Platelets 224 {x10E3/uL} (Normal) Range: 150-379 RDW 15.4 % (Normal) Range: 12.3-15.4 MCHC 31.6 g/dL (Normal) Range: 31.5-35.7 MCH 29.1 pg (Normal) Range: 26.6-33.0 MCV 92 fL (Normal) Range: 79-97 Hematocrit 43.4 % (Normal) Range: 34.0-46.6 Hemoglobin 13.7 g/dL (Normal) Range: 11.1-15.9 RBC 4.71 {x10E6/uL} (Normal) Range: 3.77-5.28 WBC 13.0 {x10E3/uL} (Abnormal) Range: 3.4-10.8 45-Wox-046995:52 LIPID PANEL (50002) Comments: PATIENT WAS FASTINGPERFORMED BY: [facility] Oejsjn5452 [facility] [id number] LDL/HDL Ratio 1.8 {ratio_units} (Normal) Range: 0.0-3.2 Comments: LDL/HDL Ratio Men Women 1/2 Avg.Risk 1.0 1.5 Av g.Risk 3.6 3.2 2X Avg.Risk 6.2 5.0 3X Avg.Risk 8.0 6.1 LDL Cholesterol Calc 75 mg/dL (Normal) Range: 0-99 VLDL Cholesterol Yamilka 42 mg/dL (Abnormal) Range: 5-40 HDL Cholesterol 41 mg/dL (Normal) Triglycerides 211 mg/dL (Abnormal) Range: 0-149 Cholesterol, Total 158 mg/dL (Normal) Range: 100-199 30-Hcz-171608:52 TSH (21461) Comments: PATIENT WAS FASTINGPERFORMED BY: [facility] Cgiryf3038 [facility] [id number] TSH 1.390 {uIU/mL} (Normal) Range: 0.450-4.500 63-Mjd-478773:52 CALCIFEDIOL (31566) Comments: PATIENT WAS FASTINGPERFORMED BY: [facility] Oonpmk6359 [facility] [id number] Vitamin D, 25-Hydroxy 38.5 ng/mL (Normal) Range: 30.0-100.0 Comments: Vitamin D deficiency has been defined by the Nolan ofMedicine and an Endocrine Society practice guideline as alevel of serum 25-OH vitamin D less than 20 ng/mL (1,2).The Endocrine Society went on to further define vitamin Dinsufficiency as a level between 21 and 29 ng/mL (2).1. IOM (Nolan of Medicine). 2010. Dietary reference intakes for calcium and D. [place]: The National Academies Press.2. Stephon MF, Ana ROY, Alka ROMERO, et al. Evaluation, treatment, and prevention of vitamin D deficiency: an Endocrine Society clinical practice guideline. JCEM. 2010; 96(7):1911-30. :32 HgA1C , Office (47374) HgA1C , Office 8.1 % (Abnormal) Range: 4.6 - 7.1 :32 Blood Glucose , Office (13082) Blood Glucose , Office 122 (Normal) :37 Immature Cells Comments: PATIENT WAS FASTINGPERFORMED BY: [employer] Bfwshb9931 [address] [id number] Myelocytes 1 % (Abnormal) Range: 0 - 0 Metamyelocytes 3 % (Abnormal) Range: 0 - 0 :16 PHOSPHORUS (56741) Comments: PATIENT WAS FASTINGPERFORMED BY: [employer] Iouowl2176 Wu RoadDublin [place] [id number] Phosphorus, Serum 2.8 mg/dL (Normal) Range: 2.5-4.5 :16 MAGNESIUM (25018) Comments: PATIENT WAS FASTINGPERFORMED BY: [employer] Xoitdr5887 Wu InnoPath SoftwareDublin [place] [id number] Magnesium, Serum 1.8 mg/dL (Normal) Range: 1.6-2.3 :16 METABOLIC PANEL, COMPREHENSIVE Comments: PATIENT WAS FASTINGPERFORMED BY: [facility] [address] Wu [address]bl[employer] [place] [id number] ([id number]) ALT (SGPT) 29 [iU]/L (Normal) Range: 0-32 AST (SGOT) 18 [iU]/L (Normal) Range: 0-40 Alkaline Phosphatase, S 44 [iU]/L (Normal) Range: 39-117 Bilirubin, Total 0.4 mg/dL (Normal) Range: 0.0-1.2 A/G Ratio 1.8 (Normal) Range: 1.2-2.2 Globulin, Total 2.2 g/dL (Normal) Range: 1.5-4.5 Albumin, Serum 4.0 g/dL (Normal) Range: 3.6-4.8 Protein, Total, Serum 6.2 g/dL (Normal) Range: 6.0-8.5 Calcium, Serum 10.0 mg/dL (Normal) Range: 8.7-10.3 Carbon Dioxide, Total 20 mmol/L (Normal) Range: 18-29 Chloride, Serum 105 mmol/L (Normal) Range: 96-106 Potassium, Serum 4.7 mmol/L (Normal) Range: 3.5-5.2 Sodium, Serum 144 mmol/L (Normal) Range: 134-144 BUN/Creatinine Ratio 14 (Normal) Range: 12-28 eGFR If Africn Am 36 mL/min/1.73 (Abnormal) Comments: ADDENDA: OV today eGFR If NonAfricn Am 31 mL/min/1.73 (Abnormal) Creatinine, Serum 1.68 mg/dL (Abnormal) Range: 0.57-1.00 BUN 24 mg/dL (Normal) Range: 8-27 Glucose, Serum 115 mg/dL (Abnormal) Range: 65-99 :34 OVA & PARASITE DIR SMEAR Comments: PATIENT NOT FASTINGPERFORMED BY: [employer]Pending sale to [facility] [id number] ([id number]) Result 1 NOCP (Normal) Comments: No ova, cysts, or parasites seen. Ova + Parasite Exam Final report (Normal) Comments: These results were obtained using wet preparation(s) and trichromestained smear. This test does not include testing for Cryptosporidiumparvum, Cyclospora, or Microsporidia. :34 OCCULT BLOOD FECES SCREEN Comments: PATIENT NOT FASTINGPERFORMED BY: [employer] Fdeepn1169 WealthsimplePending sale to [facility] [id number] ([id number]) Occult Blood, Fecal, IA Negative (Normal) :34 LEUKOCYTE COUNT, FECAL (82510) Comments: PATIENT NOT FASTINGPERFORMED BY: [facility] Zntyes3766 [address] [id number] Result 1 NWBC (Normal) Comments: No white blood cells seen. White Blood Cells (WBC), Final report (Normal) Stool :34 C-DIFFICILE, STOOL (96365) Comments: PATIENT NOT FASTINGPERFORMED BY: CB [facility] Ibqhzj9881 Wu OpenCloudin [place] [id number] C difficile Toxins A+B, EIA Negative (Normal) :34 ALFONZO CULTURE-STOOL (44362) Comments: PATIENT NOT FASTINGPERFORMED BY: [facility] Bzxarm6566 Wu OpenCloudPending sale to [facility] [id number] Information: SRC:ST SRC:ST E coli Shiga Toxin EIA Negative (Normal) Result 1 NCI (Normal) Comments: No Campylobacter species isolated. Campylobacter Culture Final report (Normal) Result 1 NSS (Normal) Comments: No Salmonella or Shigella recovered. Salmonella/Shigella Screen Final report (Normal) 59-Lng-282007:56 Metabolic Panel, Comprehensive Comments: PATIENT NOT FASTINGPERFORMED BY: [employer] Vorpbi4786 WealthsimplePending sale to [facility] [id number] ([id number]) ALT (SGPT) 26 [iU]/L (Normal) Range: 0-32 AST (SGOT) 37 [iU]/L (Normal) Range: 0-40 Alkaline Phosphatase, S 37 [iU]/L (Abnormal) Range: 39-117 Bilirubin, Total 0.4 mg/dL (Normal) Range: 0.0-1.2 A/G Ratio 1.5 (Normal) Range: 1.2-2.2 Globulin, Total 2.4 g/dL (Normal) Range: 1.5-4.5 Albumin, Serum 3.5 g/dL (Abnormal) Range: 3.6-4.8 Protein, Total, Serum 5.9 g/dL (Abnormal) Range: 6.0-8.5 Calcium, Serum 7.8 mg/dL (Abnormal) Range: 8.7-10.3 Carbon Dioxide, Total 19 mmol/L (Normal) Range: 18-29 Chloride, Serum 100 mmol/L (Normal) Range: 96-106 Potassium, Serum 3.8 mmol/L (Normal) Range: 3.5-5.2 Sodium, Serum 140 mmol/L (Normal) Range: 134-144 BUN/Creatinine Ratio 34 (Abnormal) Range: 12-28 eGFR If Africn Am 23 mL/min/1.73 (Abnormal) eGFR If NonAfricn Am 20 mL/min/1.73 (Abnormal) Creatinine, Serum 2.42 mg/dL (Abnormal) Range: 0.57-1.00 BUN 82 mg/dL (Abnormal) Range: 8-27 Glucose, Serum 147 mg/dL (Abnormal) Range: 65-99 05-Xqh-414724:56 CBC, Platelets & Auto Diff Comments: PATIENT NOT FASTINGPERFORMED BY: [facility]CoR[facility] HealthCareQplfjj8124 [facility] [id number] ([id number]) Immature Grans (Abs) 0.1 {x10E3/uL} (Normal) Range: 0.0-0.1 Immature Granulocytes 1 % (Normal) Baso (Absolute) 0.0 {x10E3/uL} (Normal) Range: 0.0-0.2 Eos (Absolute) 0.2 {x10E3/uL} (Normal) Range: 0.0-0.4 Monocytes(Absolute) 0.6 {x10E3/uL} (Normal) Range: 0.1-0.9 Lymphs (Absolute) 0.8 {x10E3/uL} (Normal) Range: 0.7-3.1 Neutrophils (Absolute) 5.6 {x10E3/uL} (Normal) Range: 1.4-7.0 Basos 0 % (Normal) Eos 3 % (Normal) Monocytes 9 % (Normal) Lymphs 11 % (Normal) Neutrophils 76 % (Normal) Platelets 227 {x10E3/uL} (Normal) Range: 150-379 RDW 15.0 % (Normal) Range: 12.3-15.4 MCHC 33.1 g/dL (Normal) Range: 31.5-35.7 MCH 29.3 pg (Normal) Range: 26.6-33.0 MCV 89 fL (Normal) Range: 79-97 Hematocrit 39.9 % (Normal) Range: 34.0-46.6 Hemoglobin 13.2 g/dL (Normal) Range: 11.1-15.9 RBC 4.50 {x10E6/uL} (Normal) Range: 3.77-5.28 WBC 7.4 {x10E3/uL} (Normal) Range: 3.4-10.8 :37 URIC ACID BLOOD (62041) Comments: PATIENT WAS FASTINGPERFORMED BY: [facility]6370 [facility] [id number] Uric Acid, Serum 9.1 mg/dL (Abnormal) Range: 2.5-7.1 Comments: Therapeutic target for gout patients: <6.0 :10 METABOLIC PANEL, COMPREHENSIVE (52812) :37 CBC W/AUTO DIFF WBC (01543) Comments: PATIENT WAS FASTINGPERFORMED BY: [facility]6370 [facility] [id number] Hematology Comments: Note: (Normal) Comments: Manual differential was performed. Baso (Absolute) 0.0 {x10E3/uL} (Normal) Range: 0.0-0.2 Eos (Absolute) 0.3 {x10E3/uL} (Normal) Range: 0.0-0.4 Monocytes(Absolute) 0.7 {x10E3/uL} (Normal) Range: 0.1-0.9 Lymphs (Absolute) 0.9 {x10E3/uL} (Normal) Range: 0.7-3.1 Neutrophils (Absolute) 7.1 {x10E3/uL} (Abnormal) Range: 1.4-7.0 Immature Cells Note (Normal) Basos 0 % (Normal) Eos 3 % (Normal) Monocytes 7 % (Normal) Lymphs 10 % (Normal) Neutrophils 76 % (Normal) Platelets 333 {x10E3/uL} (Normal) Range: 150-379 RDW 15.0 % (Normal) Range: 12.3-15.4 MCHC 31.5 g/dL (Normal) Range: 31.5-35.7 MCH 29.3 pg (Normal) Range: 26.6-33.0 MCV 93 fL (Normal) Range: 79-97 Hematocrit 42.9 % (Normal) Range: 34.0-46.6 Hemoglobin 13.5 g/dL (Normal) Range: 11.1-15.9 RBC 4.61 {x10E6/uL} (Normal) Range: 3.77-5.28 WBC 9.4 {x10E3/uL} (Normal) Range: 3.4-10.8 42-Xuo-576100:58 Magnesium Comments: [facility] [address] [place], [address] MG 2.0 mg/dL (Normal) Range: 1.8-2.4 Comments: Slight Hemolysis, Result may be falsely increased. 89-Jpd-547590:58 Renal Profile Comments: [facility] [address] [place], [address] CO2 27.0 mmol/L (Normal) Range: 21.0-32.0 CL 100 mmol/L (Normal) Range: 98-107 K 3.6 mmol/L (Normal) Range: 3.5-5.1 Comments: Slight Hemolysis, Result may be falsely increased. NA 138 mmol/L (Normal) Range: 136-145 PHOS 2.9 mg/dL (Normal) Range: 2.5-4.9 CA 10.0 mg/dL (Normal) Range: 8.5-10.1 ALB 3.5 g/dL (Normal) Range: 3.4-5.0 BUN/CRE 27.2 {RATIO} (Abnormal) Range: 10-20 EST GFR - AA 32 mL/min (Abnormal) Comments: GFR Calc EST GFR 26 mL/min (Abnormal) Comments: Non- GFR Calc CREAT,SERUM 2.02 mg/dL (Abnormal) Range: 0.55-1.02 Comments: The validity of the calculated GFR AND GFRAA in patients over70 years has not been determined. Clinical correlation isessential. BUN 55 mg/dL (Abnormal) Range: 7-18 GLU 234 mg/dL (Abnormal) Range: 70-110 Comments: Glucose result greater than or equal to 200 mg/dLsuggests DIABETES MELLITUS per A.D.A. criteria. :45 URIC ACID BLOOD (37057) Comments: PATIENT NOT FASTINGPERFORMED BY: [facility]Co[facility] HealthCareAshvoi2711 [facility] [id number] Uric Acid, Serum 9.6 mg/dL (Abnormal) Range: 2.5-7.1 Comments: Therapeutic target for gout patients: <6.0 :45 RENAL FUNCTION PANEL (03699) Comments: PATIENT NOT FASTINGPERFORMED BY: [facility] TherapeuticsRutgers - University Behavioral HealthCareMbxdly2154 [facility] [id number] Albumin, Serum 4.5 g/dL (Normal) Range: 3.6-4.8 Phosphorus, Serum 3.7 mg/dL (Normal) Range: 2.5-4.5 Calcium, Serum 10.5 mg/dL (Abnormal) Range: 8.7-10.3 Carbon Dioxide, Total 23 mmol/L (Normal) Range: 18-29 Chloride, Serum 99 mmol/L (Normal) Range: 96-106 Potassium, Serum 4.6 mmol/L (Normal) Range: 3.5-5.2 Sodium, Serum 143 mmol/L (Normal) Range: 134-144 BUN/Creatinine Ratio 18 (Normal) Range: 12-28 eGFR If Africn Am 33 mL/min/1.73 (Abnormal) eGFR If NonAfricn Am 29 mL/min/1.73 (Abnormal) Creatinine, Serum 1.82 mg/dL (Abnormal) Range: 0.57-1.00 BUN 33 mg/dL (Abnormal) Range: 8-27 Glucose, Serum 214 mg/dL (Abnormal) Range: 65-99 :24 CALCIFIDIOL (74861) VIT D 25 Comments: PATIENT WAS FASTINGPERFORMED BY: [facility]Co[facility] Behavior[facility] HealthCareNluoab9606 [facility] [id number] Vitamin D, 25-Hydroxy 44.9 ng/mL (Normal) Range: 30.0-100.0 Comments: Vitamin D deficiency has been defined by the Nolan ofMedicine and an Endocrine Society practice guideline as alevel of serum 25-OH vitamin D less than 20 ng/mL (1,2).The Endocrine Society went on to further define vitamin Dinsufficiency as a level between 21 and 29 ng/mL (2).1. IOM (Nolan of Medicine). 2010. Dietary reference intakes for calcium and D. [place]: The National Academies Press.2. Stephon MF, Ana NC, Alka ROMERO, et al. Evaluation, treatment, and prevention of vitamin D deficiency: an Endocrine Society clinical practice guideline. JCEM. 2010; 96(7):1911-30. :39 HgA1C , Office (41701) HgA1C , Office 7.6 % (Abnormal) Range: 4.6 - 7.1 :39 Blood Glucose , Office (69936) Blood Glucose , Office 174 (Normal) :56 TSH (74324) Comments: PATIENT WAS FASTINGPERFORMED BY: [facility]6370 [facility] [id number] TSH 2.180 {uIU/mL} (Normal) Range: 0.450-4.500 :56 LIPID PANEL (13517) Comments: PATIENT WAS FASTINGPERFORMED BY: [facility]6370 [facility] [id number] LDL/HDL Ratio 1.8 {ratio_units} (Normal) Range: 0.0-3.2 Comments: LDL/HDL Ratio Men Women 1/2 Avg.Risk 1.0 1.5 Av g.Risk 3.6 3.2 2X Avg.Risk 6.2 5.0 3X Avg.Risk 8.0 6.1 LDL Cholesterol Calc 62 mg/dL (Normal) Range: 0-99 VLDL Cholesterol Yamilka 45 mg/dL (Abnormal) Range: 5-40 HDL Cholesterol 35 mg/dL (Abnormal) Triglycerides 226 mg/dL (Abnormal) Range: 0-149 Cholesterol, Total 142 mg/dL (Normal) Range: 100-199 :36 CBC W/Diff, Automated Comments: [facility] [address] [place], [place], [id number] Absolute Lymph 1.31 {X10_3/ul} (Normal) Range: 0.83-4.51 Absolute Neut 7.6 {X10_3/uL} (Normal) Range: 2.0-7.7 IM GRAN % 1.700 % (Abnormal) Range: 0.0-0.9 Comments: IG% - Immature Granulocytes (promyelocytes, myelocytes andmetamyelocytes) > 1% indicates that a LEFT SHIFT is Present. BASO% 0.9 % (Normal) Range: 0-1 EO% 1.6 % (Normal) Range: 0-5 MONO% 10.8 % (Abnormal) Range: 0-10 LY% 12.5 % (Abnormal) Range: 19-41 NEUT% 72.5 % (Abnormal) Range: 47-70 MPV 9.5 fL (Normal) Range: 6.2-12.0 PLT 386 K/mm3 (Normal) Range: 150-450 RDW SD 53.7 fL (Abnormal) Range: 35.1-43.9 RDW CV 15.1 % (Abnormal) Range: 11.6-14.6 MCHC 30.4 {g/gl} (Abnormal) Range: 32-36 MCH 29.8 pg (Normal) Range: 27.0-32.0 MCV 97.9 fL (Normal) Range: 81-99 HCT 41.4 % (Normal) Range: 37-47 HGB 12.6 g/dL (Normal) Range: 12.0-15.0 RBC 4.23 {M/mm3} (Normal) Range: 4.2-5.4 WBC 10.5 K/mm3 (Normal) Range: 4.4-11.0 5-Met-136101:36 Magnesium Comments: [facility] [address] [place], [phone] MG 1.9 mg/dL (Normal) Range: 1.8-2.4 4-Nld-857524:36 Protein+Creatinine Ratio,Urine Comments: [facility] [address] [place], [address] PROT:CRE RATIO 120 {mg/g_CRE} (Normal) Range: 0-200 PROTEIN,UR.RAN. 13.6 mg/dL (Abnormal) UR CREAT 113.00 mg/dL (Normal) 0-Kgz-443247:36 PTH,INTACT Comments: [facility] [address] [place], [id number] PTH,Intact 27 pg/mL (Normal) Range: 14-72 7-Zni-543307:36 Renal Profile Comments: [facility] [address] [place], [id number] CO2 27.0 mmol/L (Normal) Range: 21.0-32.0 CL 106 mmol/L (Normal) Range: 98-107 K 4.1 mmol/L (Normal) Range: 3.5-5.1 NA 142 mmol/L (Normal) Range: 136-145 PHOS 2.7 mg/dL (Normal) Range: 2.5-4.9 CA 9.5 mg/dL (Normal) Range: 8.5-10.1 ALB 3.5 g/dL (Normal) Range: 3.4-5.0 BUN/CRE 20.1 {RATIO} (Abnormal) Range: 10-20 EST GFR - AA 39 mL/min (Abnormal) Comments: GFR Calc EST GFR 32 mL/min (Abnormal) Comments: Non- GFR Calc CREAT,SERUM 1.69 mg/dL (Abnormal) Range: 0.55-1.02 Comments: The validity of the calculated GFR AND GFRAA in patients over70 years has not been determined. Clinical correlation isessential. BUN 34 mg/dL (Abnormal) Range: 7-18 GLU 133 mg/dL (Abnormal) Range: 70-110 Comments: Fasting Glucose result greater than or equal to 126 mg/dLsuggests DIABETES MELLITUS per A.D.A. criteria. :36 Uric Acid Comments: [facility] [address] [place], [place], [id number] URIC 7.5 mg/dL (Abnormal) Range: 2.6-6.0 Comments: The drugs N-Acetylcysteine and Metamizole may falsely deressthis assay. 8-Nfv-935486:36 Vitamin D,25 Hydroxy Comments: [facility] [address] [place], [place], [id number] Vitamin D 25-OH 33.9 ng/mL (Normal) Comments: Vitamin D 25(OH) Status Range Deficiency <20 ng/mL (50nmol/L) Insuffciency 20 - 30 ng/mL (50 - 75 nmol/L) Sufficiency 30 - 100 ng/mL (75 - 250 nmol/L) Toxicity >100 ng/mL (>250 nmol/L) :24 Renal Profile Comments: [facility] [address] [facility] [place], [address] CO2 24.0 mmol/L (Normal) Range: 21.0-32.0 CL 106 mmol/L (Normal) Range: 98-107 K 3.9 mmol/L (Normal) Range: 3.5-5.1 NA 138 mmol/L (Normal) Range: 136-145 PHOS 2.6 mg/dL (Normal) Range: 2.5-4.9 CA 9.4 mg/dL (Normal) Range: 8.5-10.1 ALB 3.9 g/dL (Normal) Range: 3.4-5.0 BUN/CRE 17.3 {RATIO} (Normal) Range: 10-20 EST GFR - AA 31 mL/min (Abnormal) Comments: GFR Calc EST GFR 25 mL/min (Abnormal) Comments: Non- GFR Calc CREAT,SERUM 2.08 mg/dL (Abnormal) Range: 0.55-1.20 Comments: The validity of the calculated GFR AND GFRAA in patients over70 years has not been determined. Clinical correlation isessential. BUN 36 mg/dL (Abnormal) Range: 7-18 GLU 191 mg/dL (Abnormal) Range: 70-110 Comments: Fasting Glucose result greater than or equal to 126 mg/dLsuggests DIABETES MELLITUS per A.D.A. criteria. :46 Immature Cells Comments: PATIENT WAS FASTINGPERFORMED BY: [employer]6370 [employer] [facility] [id number] Myelocytes 4 % (Abnormal) Range: 0 - 0 :46 Microscopic Examination Comments: PATIENT WAS FASTINGPERFORMED BY: [employer]6370 [facility] [id number] Bacteria Few (Normal) Mucus Threads Present (Normal) Crystal Type Calcium Oxalate (Normal) Crystals Present (Abnormal) Epithelial Cells (non renal) 0-10 {/hpf} (Normal) Range: 0 - 10 RBC 3-10 {/hpf} (Abnormal) Range: 0 - 2 WBC 11-30 {/hpf} (Abnormal) Range: 0 - 5 :47 Sputum Culture ([id number]) Comments: PATIENT NOT FASTINGPERFORMED BY: FAZUA [facility] [id number] Information: SRC:SP Result 1 RRF (Normal) Comments: Routine respiratory hermelindo Lower Respiratory Culture Final report (Normal) :46 CALCIFEDIOL ([id number]) Comments: PATIENT WAS FASTINGPERFORMED BY: [employer]pen[employer] TherapeuticsRutgers - University Behavioral [id number] [facility] [id number] Vitamin D, 25-Hydroxy 32.4 ng/mL (Normal) Range: 30.0-100.0 Comments: Vitamin D deficiency has been defined by the [employer] ofMedicine and an Endocrine Society practice guideline as alevel of serum 25-OH vitamin D less than 20 ng/mL (1,2).The Endocrine Society went on to further define vitamin Dinsufficiency as a level between 21 and 29 ng/mL (2).1. IOM ([employer] of Medicine). 2010. Dietary reference intakes for calcium and D. [place]: The National Academies Press.2. Stephon MF, Ana [place], [place] ROMERO, et al. Evaluation, treatment, and prevention of vitamin D deficiency: an Endocrine Society clinical practice guideline. JCEM. 2010; 96(7):1911-30. :46 Metabolic Panel, Comprehensive Comments: PATIENT WAS FASTINGPERFORMED BY: [email or web address] [facility] [id number] ([id number]) ALT (SGPT) 19 [iU]/L (Normal) Range: 0-32 AST (SGOT) 14 [iU]/L (Normal) Range: 0-40 Alkaline Phosphatase, S 61 [iU]/L (Normal) Range: 39-117 Bilirubin, Total 0.3 mg/dL (Normal) Range: 0.0-1.2 A/G Ratio 2.2 (Normal) Range: 1.1-2.5 Globulin, Total 1.9 g/dL (Normal) Range: 1.5-4.5 Albumin, Serum 4.2 g/dL (Normal) Range: 3.6-4.8 Protein, Total, Serum 6.1 g/dL (Normal) Range: 6.0-8.5 Calcium, Serum 9.4 mg/dL (Normal) Range: 8.7-10.3 Carbon Dioxide, Total 23 mmol/L (Normal) Range: 18-29 Chloride, Serum 101 mmol/L (Normal) Range: 97-108 Potassium, Serum 4.4 mmol/L (Normal) Range: 3.5-5.2 Sodium, Serum 142 mmol/L (Normal) Range: 134-144 BUN/Creatinine Ratio 25 (Normal) Range: 11-26 eGFR If Africn Am 36 mL/min/1.73 (Abnormal) eGFR If NonAfricn Am 31 mL/min/1.73 (Abnormal) Creatinine, Serum 1.70 mg/dL (Abnormal) Range: 0.57-1.00 BUN 42 mg/dL (Abnormal) Range: 8-27 Glucose, Serum 126 mg/dL (Abnormal) Range: 65-99 65-Jqb-19399:46 CBC WITH MANUAL DIFF Comments: PATIENT WAS FASTINGPERFORMED BY: [facility]6370 [facility] [id number] Information: [id number] (86182) Hematology Comments: Note: (Normal) Comments: Manual differential was performed. Baso (Absolute) 0.1 {x10E3/uL} (Normal) Range: 0.0-0.2 Eos (Absolute) 0.0 {x10E3/uL} (Normal) Range: 0.0-0.4 Monocytes(Absolute) 0.8 {x10E3/uL} (Normal) Range: 0.1-0.9 Lymphs (Absolute) 2.2 {x10E3/uL} (Normal) Range: 0.7-3.1 Neutrophils (Absolute) 10.2 {x10E3/uL} (Abnormal) Range: 1.4-7.0 Immature Cells Note (Normal) Basos 1 % (Normal) Eos 0 % (Normal) Monocytes 6 % (Normal) Lymphs 16 % (Normal) Neutrophils 73 % (Normal) Platelets 329 {x10E3/uL} (Normal) Range: 150-379 RDW 15.4 % (Normal) Range: 12.3-15.4 MCHC 32.1 g/dL (Normal) Range: 31.5-35.7 MCH 29.3 pg (Normal) Range: 26.6-33.0 MCV 91 fL (Normal) Range: 79-97 Hematocrit 43.6 % (Normal) Range: 34.0-46.6 Hemoglobin 14.0 g/dL (Normal) Range: 11.1-15.9 RBC 4.78 {x10E6/uL} (Normal) Range: 3.77-5.28 WBC 14.0 {x10E3/uL} (Abnormal) Range: 3.4-10.8 :46 URINALYSIS (22649) Comments: PATIENT WAS FASTINGPERFORMED BY: [employer] [facility] [id number] Microscopic Examination See below: (Normal) Comments: Microscopic was indicated and was performed. Nitrite, Urine Negative (Normal) Urobilinogen,Semi-Qn 0.2 mg/dL (Normal) Range: 0.2-1.0 Bilirubin Negative (Normal) Occult Blood Negative (Normal) Ketones Negative (Normal) Glucose 2+ (Abnormal) Protein Negative (Normal) WBC Esterase 3+ (Abnormal) Appearance Clear (Normal) Urine-Color Yellow (Normal) pH 6.5 (Normal) Range: 5.0-7.5 Specific Preston 1.022 (Normal) Range: 1.005-1.030 :46 MICROALBUMIN: CREATININE RATIO Comments: PATIENT WAS FASTINGPERFORMED BY: [employer] [facility] [id number] ([id number]) AND (60870) Microalb/Creat Ratio 10.1 {mg/g_creat} (Normal) Range: 0.0-30.0 Microalbumin, Urine 7.3 ug/mL (Normal) Creatinine, Urine 72.6 mg/dL (Normal) :46 TSH (91841) Comments: PATIENT WAS FASTINGPERFORMED BY: [employer] Tfhdki8702 [facility] [id number] TSH 2.600 {uIU/mL} (Normal) Range: 0.450-4.500 :46 Lipid Panel (04666) Comments: PATIENT WAS FASTINGPERFORMED BY: [employer] [facility] [id number]; has appt 08/20, will review at that time LDL/HDL Ratio 1.6 {ratio_units} (Normal) Range: 0.0-3.2 Comments: LDL/HDL Ratio Men Women 1/2 Avg.Risk 1.0 1.5 Av g.Risk 3.6 3.2 2X Avg.Risk 6.2 5.0 3X Avg.Risk 8.0 6.1 LDL Cholesterol Calc 70 mg/dL (Normal) Range: 0-99 VLDL Cholesterol Yamilka 49 mg/dL (Abnormal) Range: 5-40 HDL Cholesterol 43 mg/dL (Normal) Comments: According to ATP-III Guidelines, HDL-C >59 mg/dL is considered anegative risk factor for CHD. Triglycerides 246 mg/dL (Abnormal) Range: 0-149 Cholesterol, Total 162 mg/dL (Normal) Range: 100-199 :49 HgA1C , Office (12846) HgA1C , Office 6.6 % (Normal) Range: 4.6 - 7.1 :49 Blood Glucose , Office (26329) Blood Glucose , Office 113 (Normal) :10 CBC W/Diff, Automated Comments: [facility] [address] [place], [address] Absolute Lymph 1.40 {X10_3/ul} (Normal) Range: 0.83-4.51 Absolute Neut 6.5 {X10_3/uL} (Normal) Range: 2.0-7.7 IM GRAN % 1.400 % (Abnormal) Range: 0.0-0.9 Comments: IG% - Immature Granulocytes (promyelocytes, myelocytes andmetamyelocytes) > 1% indicates that a LEFT SHIFT is Present. BASO% 0.4 % (Normal) Range: 0-1 EO% 3.1 % (Normal) Range: 0-5 MONO% 8.6 % (Normal) Range: 0-10 LY% 15.3 % (Abnormal) Range: 19-41 NEUT% 71.2 % (Abnormal) Range: 47-70 MPV 9.4 fL (Normal) Range: 6.2-12.0 PLT 281 K/mm3 (Normal) Range: 150-450 RDW SD 53.2 fL (Abnormal) Range: 35.1-43.9 RDW CV 15.4 % (Abnormal) Range: 11.6-14.6 MCHC 31.7 {g/gl} (Abnormal) Range: 32-36 MCH 29.9 pg (Normal) Range: 27.0-32.0 MCV 94.2 fL (Normal) Range: 81-99 HCT 40.7 % (Normal) Range: 37-47 HGB 12.9 g/dL (Normal) Range: 12.0-15.0 RBC 4.32 {M/mm3} (Normal) Range: 4.2-5.4 WBC 9.2 K/mm3 (Normal) Range: 4.4-11.0 :10 Magnesium Comments: Comments: [facility] [address], [phone](508 MG 1.9 mg/dL (Normal) Range: 1.8-2.4 :10 Protein+Creatinine Ratio,Urine Comments: [facility] [address] [place], [address] PROT:CRE RATIO 112 {mg/g_CRE} (Normal) Range: 0-200 PROTEIN,UR.RAN. 8.1 mg/dL (Normal) UR CREAT 72.10 mg/dL (Normal) :10 PTH,INTACT Comments: [facility] [address] [place], [id number] PTH,Intact 29 pg/mL (Normal) Range: 14-72 :10 Renal Profile Comments: Comments: [facility] Xdsilcdfzf7[address] [place], [id number] CO2 25.0 mmol/L (Normal) Range: 21.0-32.0 CL 104 mmol/L (Normal) Range: 98-107 K 4.0 mmol/L (Normal) Range: 3.5-5.1 NA 139 mmol/L (Normal) Range: 136-145 PHOS 3.1 mg/dL (Normal) Range: 2.5-4.9 CA 9.6 mg/dL (Normal) Range: 8.5-10.1 ALB 3.9 g/dL (Normal) Range: 3.4-5.0 BUN/CRE 15.9 {RATIO} (Normal) Range: 10-20 EST GFR - AA 36 mL/min (Abnormal) Comments: GFR Calc EST GFR 30 mL/min (Abnormal) Comments: Non- GFR Calc CREAT,SERUM 1.82 mg/dL (Abnormal) Range: 0.55-1.20 Comments: The validity of the calculated GFR AND GFRAA in patients over70 years has not been determined. Clinical correlation isessential. BUN 29 mg/dL (Abnormal) Range: 7-18 GLU 137 mg/dL (Abnormal) Range: 70-110 Comments: Fasting Glucose result greater than or equal to 126 mg/dLsuggests DIABETES MELLITUS per A.D.A. criteria. 89-Gql-752713:10 Uric Acid Comments: Comments: [facility] [address] [place], [id number] URIC 7.1 mg/dL (Abnormal) Range: 2.6-6.0 Comments: The drugs N-Acetylcysteine and Metamizole may falsely deressthis assay. 42-Thq-401190:10 Vitamin D,25 Hydroxy Comments: [facility] [address] [place], [address] Vitamin D 25-OH 35.5 ng/mL (Normal) Comments: Vitamin D 25(OH) Status Range Deficiency <20 ng/mL (50nmol/L) Insuffciency 20 - 30 ng/mL (50 - 75 nmol/L) Sufficiency 30 - 100 ng/mL (75 - 250 nmol/L) Toxicity >100 ng/mL (>250 nmol/L) 78-Brk-012500:10 CALCIUM SERUM (22289) Comments: PATIENT NOT FASTINGPERFORMED BY: [employer] Qjmldx6532 We[employer]simplePending [facility] [id number] Information: [id number] Calcium, Serum 10.3 mg/dL (Normal) Range: 8.7-10.3 61-Krh-003861:10 MAGNESIUM (10566) Comments: PATIENT NOT FASTINGPERFORMED BY: [employer] Hznvwh8761 Wealthsimplein [place] [id number] Magnesium, Serum 2.1 mg/dL (Normal) Range: 1.6-2.3 :14 Bedside Glucose Comments: [facility] LaboratoryPoint of Isit[address] [place] [address] BEDSIDE GLU 110 mg/dL (Normal) Range: 70-110 Comments: MANAGEMENT OF PATIENT CARE PER NURSING PROTOCOL :26 Metabolic Panel, Basic Comments: PATIENT NOT FASTINGPERFORMED BY: [facility] Awqtyk1491 [facility] [id number] Information: [id number]; will review on 06/04 (21376) Calcium, Serum 10.0 mg/dL (Normal) Range: 8.7-10.3 Carbon Dioxide, Total 24 mmol/L (Normal) Range: 18-29 Chloride, Serum 101 mmol/L (Normal) Range: 97-108 Potassium, Serum 4.9 mmol/L (Normal) Range: 3.5-5.2 Sodium, Serum 142 mmol/L (Normal) Range: 134-144 BUN/Creatinine Ratio 20 (Normal) Range: 11-26 eGFR If Africn Am 35 mL/min/1.73 (Abnormal) eGFR If NonAfricn Am 30 mL/min/1.73 (Abnormal) Creatinine, Serum 1.74 mg/dL (Abnormal) Range: 0.57-1.00 BUN 35 mg/dL (Abnormal) Range: 8-27 Glucose, Serum 104 mg/dL (Abnormal) Range: 65-99 67-Fmg-211393:39 Magnesium Comments: ORDERED CA AND PTHINDRLUDA ORDERED CBC PTHIN RENAL VITD CRE/PROURIC [facility] [address] [place], [address] MG 2.0 mg/dL (Normal) Range: 1.8-2.4 :39 Protein+Creatinine Ratio,Urine Comments: [facility] [address] [place], [address] PROT:CRE RATIO 188 {mg/g_CRE} (Normal) Range: 0-200 PROTEIN,UR.RAN. < 6.0 mg/dL (Normal) UR CREAT 29.80 mg/dL (Normal) 05-Vjq-805686:39 PTH,INTACT Comments: [facility] [address] [place], [address] PTH,Intact 53 pg/mL (Normal) Range: 14-72 :39 Renal Profile Comments: ORDERED CA AND PTHINDR.LUZ ORDERED CBC PTHIN RENAL VITD CRE/PROURIC [facility] [address] [place], [address] CO2 22.0 mmol/L (Normal) Range: 21.0-32.0 CL 108 mmol/L (Abnormal) Range: 98-107 K 4.4 mmol/L (Normal) Range: 3.5-5.1 NA 140 mmol/L (Normal) Range: 136-145 PHOS 2.4 mg/dL (Abnormal) Range: 2.5-4.9 CA 8.7 mg/dL (Normal) Range: 8.5-10.1 ALB 3.3 g/dL (Abnormal) Range: 3.4-5.0 BUN/CRE 21.8 {RATIO} (Abnormal) Range: 10-20 EST GFR - AA 33 mL/min (Abnormal) Comments: GFR Calc EST GFR 27 mL/min (Abnormal) Comments: Non- GFR Calc CREAT,SERUM 1.97 mg/dL (Abnormal) Range: 0.55-1.20 Comments: The validity of the calculated GFR AND GFRAA in patients over70 years has not been determined. Clinical correlation isessential. BUN 43 mg/dL (Abnormal) Range: 7-18 GLU 279 mg/dL (Abnormal) Range: 70-110 Comments: Glucose result greater than or equal to 200 mg/dLsuggests DIABETES MELLITUS per A.D.A. criteria. :39 Uric Acid Comments: ORDERED CA AND PTHINDR.LUZ ORDERED CBC PTHIN RENAL VITD CRE/PROURIC [facility] [address] [place], [phone] URIC 7.3 mg/dL (Abnormal) Range: 2.6-6.0 Comments: The drugs N-Acetylcysteine and Metamizole may falsely deressthis assay. 05-Bpt-114505:39 Vitamin D,25 Hydroxy Comments: [facility] [address] [place], [id number] Vitamin D 25-OH 52.3 ng/mL (Normal) Comments: Vitamin D 25(OH) Status Range Deficiency <20 ng/mL (50nmol/L) Insuffciency 20 - 30 ng/mL (50 - 75 nmol/L) Sufficiency 30 - 100 ng/mL (75 - 250 nmol/L) Toxicity >100 ng/mL (>250 nmol/L) 4-Cey-148390:09 URINE CALCIUM KAITLIN TIMED Comments: PATIENT NOT FASTINGPERFORMED BY: [facility] Sxqlaz3810 [facility] [id number] Information: [id number] 2500ML START @6AM FINISH 05/05/16@ 6AM (36300) Calcium, Urine 24hr 45.0 {mg/24_hr} (Abnormal) Range: 100.0-300.0 Calcium, Urine 1.8 mg/dL (Normal) 02-May-20169:30 Fecal Occult Blood , Office (39183) Fecal Occult Blood , Office (Inhouse) negative (Normal) 01-Gcz-774687:23 Crystals, Body Fluid Comments: [facility] [address] [place], [id number] PATH REV Reviewed (Normal) Comments: Negative for malignant cells.Mixture of calcium pyrophosphate (pseudogout) crystals andnondescript crystals are noted.Johnson Castro M.D. 04/29/16 SOURCE/BF SYNOVIAL (Normal) CRYSTALS/BF SEE PATH REV (Normal) 64-Dfl-468424:23 Culture, Body Fluid Comments: [facility] [address] [place], [id number] CUBF See Note (Normal) Comments: List Antibiotics Last 48 Hours? UNKList Antibiotics to be Started? UNKGram StainCentrifuged Specimen? Culture performed on centrifuged specimen Gram Stain Rare Red Cell Stroma Rare Red Blood Cells No organisms seen Body Fluid CultNO GROWTH IN 14 DAYS Cult, AnaerobicNo growth in 5 days. 00-Mpy-709631:23 GLUCOSE, SYNOVIAL FLUID Comments: ORDERED WRONGSpecimen Source: [facility]UIDLabCorp (refer to report for specific site)refer to report for address and phone number GLU, SYN 151 mg/dL Comments: : Peritoneal : Pleural : Synovial :: : : :: : T ransudate : FLD (Normal) Exudate : :: : : : :: Not Estab. : Equal to simultaneously drawn plasma :: : : The method performance specifications have not been established for this test in body fluid. The test result should be integrated into clinical context for interpretation.The reference intervals and ot her method performancespecifications have not been established for this test. Thetest result should be integrated into the clinical contextfor interpretation. 41-Vpl-883898:23 Synovial Fluid RBC, WBC AND Comments: [facility] [address] [facility] [place], [address] Diff PATH COM/SYFL March follow (Normal) OTHER CELL /SYN 3 % (Normal) MONO 63 % (Normal) LYMPH 33 % (Normal) NEUTROPHIL 1 % (Normal) Range: 0-25 SYBF MN WBC# 0.237 {10_3/ul} (Normal) SYBF MN WBC% 81.4 % (Normal) SYBF PMN WBC# 0.054 {10_3/ul} (Normal) SYBF PMN WBC% 18.6 % (Normal) SYNOVIAL WBC 0.2910 {10_3uL} (Abnormal) Range: 0.000-0.002 SYNOVIAL RBC 0 /mm3 (Normal) SYN Tot Cell Ct 0.3190 {10_3_uL} (Abnormal) Range: 0.000-0.000 Comments: This is the Total Number of Nucleated Cell Types in the BodyFluid. SYNOVIAL DAWN. Clear (Normal) SYNOVIAL COLOR Yellow (Normal) VISCOSITY/SYFL Sl. Viscous (Normal) 6-Fqx-551553:58 CALCIUM SERUM (57151) Comments: PATIENT NOT FASTINGPERFORMED BY: [employer]Pending sale to [facility] [id number] Information: [id number] Calcium, Serum 10.6 mg/dL (Abnormal) Range: 8.7-10.3 :10 Microscopic Examination Comments: PATIENT WAS FASTINGPERFORMED BY: ThoughtLeadr6370 [employer]althsimplePending sale to [facility] [id number] Bacteria None seen (Normal) Mucus Threads Present (Normal) Epithelial Cells (non renal) 0-10 {/hpf} (Normal) Range: 0 - 10 RBC None seen {/hpf} (Normal) Range: 0 - 2 WBC 0-5 {/hpf} (Normal) Range: 0 - 5 :10 CALCIFIDIOL (74221) VIT D 25 Comments: PATIENT WAS FASTINGPERFORMED BY: [employer]Leadr6370 Carbonlights SolutionsNovant Health [facility] [id number] Vitamin D, 25-Hydroxy 63.0 ng/mL (Normal) Range: 30.0-100.0 Comments: Vitamin D deficiency has been defined by the Nolan ofMedicine and an Endocrine Society practice guideline as alevel of serum 25-OH vitamin D less than 20 ng/mL (1,2).The Endocrine Society went on to further define vitamin Dinsufficiency as a level between 21 and 29 ng/mL (2).1. IOM (Nolan of Medicine). 2010. Dietary reference intakes for calcium and D. [place]: The National Academies Press.2. Stephon MF, Ana NC, Alka ROMERO, et al. Evaluation, treatment, and prevention of vitamin D deficiency: an Endocrine Society clinical practice guideline. JCEM. 2010; 96(7):1911-30. :10 TSH (17480) Comments: PATIENT WAS FASTINGPERFORMED BY: [employer] [facility] CardMcl[facility]6370 [facility] [id number] TSH 2.680 {uIU/mL} (Normal) Range: 0.450-4.500 :10 URINALYSIS, W/ MICRO (51659) Comments: PATIENT WAS FASTINGPERFORMED BY: [facility]6370 [facility] [id number] Microscopic Examination See below: (Normal) Comments: Microscopic was indicated and was performed. Microscopic Examination MICRON (Normal) Comments: Microscopic follows if indicated. Nitrite, Urine Negative (Normal) Urobilinogen,Semi-Qn 0.2 mg/dL (Normal) Range: 0.2-1.0 Bilirubin Negative (Normal) Occult Blood Negative (Normal) Ketones Negative (Normal) Glucose 3+ (Abnormal) Protein Negative (Normal) WBC Esterase Negative (Normal) Appearance Clear (Normal) Urine-Color Yellow (Normal) pH 6.5 (Normal) Range: 5.0-7.5 Specific Preston 1.022 (Normal) Range: 1.005-1.030 :10 MICROALBUMIN: CREATININE RATIO Comments: PATIENT WAS FASTINGPERFORMED BY: [facility]6370 [facility] [id number] (66471) AND (94521) Microalb/Creat Ratio 20.5 {mg/g_creat} (Normal) Range: 0.0-30.0 Microalbumin, Urine 20.1 ug/mL (Normal) Comments: Please note reference interval change Creatinine, Urine 97.9 mg/dL (Normal) Comments: Please note reference interval change :10 LIPID PANEL (99164) Comments: PATIENT WAS FASTINGPERFORMED BY: [facility]6370 [facility] [id number] LDL/HDL Ratio 2.0 {ratio_units} (Normal) Range: 0.0-3.2 Comments: LDL/HDL Ratio Men Women 1/2 Avg.Risk 1.0 1.5 Av g.Risk 3.6 3.2 2X Avg.Risk 6.2 5.0 3X Avg.Risk 8.0 6.1 LDL Cholesterol Calc 55 mg/dL (Normal) Range: 0-99 VLDL Cholesterol Yamilka 59 mg/dL (Abnormal) Range: 5-40 HDL Cholesterol 27 mg/dL (Abnormal) Comments: According to ATP-III Guidelines, HDL-C >59 mg/dL is considered anegative risk factor for CHD. Triglycerides 295 mg/dL (Abnormal) Range: 0-149 Cholesterol, Total 141 mg/dL (Normal) Range: 100-199 74-Sej-06139:10 METABOLIC PANEL, COMPREHENSIVE Comments: PATIENT WAS FASTINGPERFORMED BY: [facility] Sxeyyk6937 [facility] [id number]; will review on 04.18 (47249) ALT (SGPT) 18 [iU]/L (Normal) Range: 0-32 AST (SGOT) 21 [iU]/L (Normal) Range: 0-40 Alkaline Phosphatase, S 65 [iU]/L (Normal) Range: 39-117 Bilirubin, Total 0.4 mg/dL (Normal) Range: 0.0-1.2 A/G Ratio 1.9 (Normal) Range: 1.1-2.5 Globulin, Total 2.3 g/dL (Normal) Range: 1.5-4.5 Albumin, Serum 4.3 g/dL (Normal) Range: 3.6-4.8 Protein, Total, Serum 6.6 g/dL (Normal) Range: 6.0-8.5 Calcium, Serum 10.6 mg/dL (Abnormal) Range: 8.7-10.3 Carbon Dioxide, Total 24 mmol/L (Normal) Range: 18-29 Chloride, Serum 100 mmol/L (Normal) Range: 97-108 Potassium, Serum 4.6 mmol/L (Normal) Range: 3.5-5.2 Sodium, Serum 142 mmol/L (Normal) Range: 134-144 BUN/Creatinine Ratio 20 (Normal) Range: 11-26 eGFR If Africn Am 32 mL/min/1.73 (Abnormal) eGFR If NonAfricn Am 27 mL/min/1.73 (Abnormal) Creatinine, Serum 1.89 mg/dL (Abnormal) Range: 0.57-1.00 BUN 37 mg/dL (Abnormal) Range: 8-27 Glucose, Serum 143 mg/dL (Abnormal) Range: 65-99 :10 CBC W/AUTO DIFF WBC Comments: PATIENT WAS FASTINGPERFORMED BY: LabCoRut[facility] Behavioral HealthCareMnlsbf3409 [facility] [id number] Information: [id number] (11216) Immature Grans (Abs) 0.0 {x10E3/uL} (Normal) Range: 0.0-0.1 Immature Granulocytes 0 % (Normal) Baso (Absolute) 0.1 {x10E3/uL} (Normal) Range: 0.0-0.2 Eos (Absolute) 0.3 {x10E3/uL} (Normal) Range: 0.0-0.4 Monocytes(Absolute) 1.0 {x10E3/uL} (Abnormal) Range: 0.1-0.9 Lymphs (Absolute) 1.2 {x10E3/uL} (Normal) Range: 0.7-3.1 Neutrophils (Absolute) 5.1 {x10E3/uL} (Normal) Range: 1.4-7.0 Basos 1 % (Normal) Eos 4 % (Normal) Monocytes 13 % (Normal) Lymphs 16 % (Normal) Neutrophils 66 % (Normal) Platelets 270 {x10E3/uL} (Normal) Range: 150-379 RDW 14.3 % (Normal) Range: 12.3-15.4 MCHC 32.2 g/dL (Normal) Range: 31.5-35.7 MCH 29.3 pg (Normal) Range: 26.6-33.0 MCV 91 fL (Normal) Range: 79-97 Hematocrit 39.5 % (Normal) Range: 34.0-46.6 Hemoglobin 12.7 g/dL (Normal) Range: 11.1-15.9 RBC 4.34 {x10E6/uL} (Normal) Range: 3.77-5.28 WBC 7.8 {x10E3/uL} (Normal) Range: 3.4-10.8 :02 HgA1C , Office (49340) HgA1C , Office 6.6 % (Normal) Range: 4.6 - 7.1 :02 Blood Glucose , Office (37278) Blood Glucose , Office 142 (Normal) 13-Jjk-954069:20 NuSwab Vaginitis Plus Comments: PATIENT NOT FASTINGPERFORMED BY: Lab[address] [id number] Information: [id number] (STD W/O Herpes) (85391) Neisseria gonorrhoeae, YAIR Negative (Normal) Chlamydia trachomatis, YAIR Negative (Normal) Trich vag by YAIR Negative (Normal) Yana glabrata, YAIR Negative (Normal) Comments: This test was developed and its performance characteristics determinedby [facility]. It has not been cleared or approved by the Food and DrugAdministration. The FDA has determined that such clearance orapproval is not necessary. Yana albicans, YAIR Positive (Abnormal) Megasphaera 1 Low - 0 {Score} (Normal) Comments: Calculate total score by adding the 3 individual bacterial vaginosis(BV) marker scores together. Total score is interpreted as follows: .Total score 0-1: Indicates the absence of BV.Total score 2: Indeterminate for BV. Additional clinical data should be evaluated to establish a diagnosis.Total score 3-6: Indicates th e presence of BV. .This test was developed and its performance characteristics determinedby [employer]. It has not been cleared or appro tima by the Food and DrugAdministration. The FDA has determined that such clearance orapproval is not necessary. BVAB 2 Low - 0 {Score} (Normal) Atopobium vaginae Low - 0 {Score} (Normal) 22-Nda-887706:56 Magnesium Comments: Test performed at:[facility] [address] [place] [address] MG 2.2 mg/dL (Normal) Range: 1.8-2.4 41-Zmg-922493:56 Protein+Creatinine Ratio,Urine Comments: Test performed at:[facility] [address] [place] [address] PROT:CRE RATIO 440 {mg/g_CRE} (Abnormal) Range: 0-200 PROTEIN,UR.RAN. 8.1 mg/dL (Normal) UR CREAT 18.20 mg/dL (Normal) 34-Swi-642618:56 Renal Profile Comments: Test performed at:[facility] [address] [place] [address] 162801 CO2 28.0 mmol/L (Normal) Range: 21.0-32.0 CL 102 mmol/L (Normal) Range: 98-107 K 3.9 mmol/L (Normal) Range: 3.5-5.1 NA 139 mmol/L (Normal) Range: 136-145 PHOS 3.8 mg/dL (Normal) Range: 2.5-4.9 CA 9.3 mg/dL (Normal) Range: 8.5-10.1 ALB 3.7 g/dL (Normal) Range: 3.4-5.0 BUN/CRE 23.3 {RATIO} (Abnormal) Range: 10-20 EST GFR - AA 34 mL/min (Abnormal) EST GFR 28 mL/min (Abnormal) CREAT,SERUM 1.89 mg/dL (Abnormal) Range: 0.55-1.20 Comments: Please note revised CREATININE reference range ztwnxdinf03/22/2015. BUN 44 mg/dL (Abnormal) Range: 7-18 GLU 186 mg/dL (Abnormal) Range: 70-110 Comments: Fasting Glucose result greater than or equal to 126 mg/dLsuggests DIABETES MELLITUS per A.D.A. criteria. 84-Iij-116547:56 Uric Acid Comments: Test performed at:[facility] [address] [place] [address] [id number] URIC 6.5 mg/dL (Abnormal) Range: 2.6-6.0 :56 Vitamin D,25 Hydroxy Comments: Test performed at:[facility] [address] [place] [address] [id number] Vitamin D 25-OH 67.0 ng/mL (Normal) Comments: Vitamin D 25(OH) Status Range Deficiency <20 ng/mL (50nmol/L) Insuffciency 20 - 30 ng/mL (50 - 75 nmol/L) Sufficiency 30 - 100 ng/mL (75 - 250 nmol/L) Toxicity >100 ng/mL (>250 nmol/L) 04-Wfb-428736:01 Rapid Strep Test, Office (22895) Rapid Strep Test, Office Negative (Normal) 99-Txh-13122:21 HgA1C , Office (66443) HgA1C , Office 6.4 % (Normal) Range: 4.6 - 7.1 :21 Blood Glucose , Office (66366) Blood Glucose , Office 167 (Normal) :01 Microscopic Examination Comments: PATIENT WAS FASTINGPERFORMED BY: [address] [id number] Bacteria Few (Normal) Mucus Threads Present (Normal) Epithelial Cells (non renal) 0-10 {/hpf} (Normal) Range: 0 - 10 RBC 0-2 {/hpf} (Normal) Range: 0 - 2 WBC 6-10 {/hpf} (Abnormal) Range: 0 - 5 :50 Antinuclear Antibodies Direct Comments: PATIENT NOT FASTINGPERFORMED BY: [facility]6370 [facility] [id number] HEIDI Direct Negative (Normal) : C-Reactive Protein, 7.3 mg/L (Abnormal) Comments: PATIENT NOT FASTINGPERFORMED BY: [place] 1246570 [facility] [id number] 50 Quant Range: 0.0-4.9 :50 CBC, Platelet, No Differential Comments: PATIENT NOT FASTINGPERFORMED BY: [address] [id number] Platelets 253 {x10E3/uL} (Normal) Range: 150-379 RDW 15.0 % (Normal) Range: 12.3-15.4 MCHC 32.2 g/dL (Normal) Range: 31.5-35.7 MCH 28.1 pg (Normal) Range: 26.6-33.0 MCV 87 fL (Normal) Range: 79-97 Hematocrit 40.1 % (Normal) Range: 34.0-46.6 Hemoglobin 12.9 g/dL (Normal) Range: 11.1-15.9 RBC 4.59 {x10E6/uL} (Normal) Range: 3.77-5.28 WBC 8.2 {x10E3/uL} (Normal) Range: 3.4-10.8 :50 Comp. Metabolic Panel (14) Comments: PATIENT NOT FASTINGPERFORMED BY: [employer] [id number] [facility] [id number] Information: [id number] ALT (SGPT) 17 [iU]/L (Normal) Range: 0-32 AST (SGOT) 18 [iU]/L (Normal) Range: 0-40 Alkaline Phosphatase, 84 [iU]/L (Normal) Range: 39-117 S Bilirubin, Total 0.4 mg/dL (Normal) Range: 0.0-1.2 A/G Ratio 2.0 (Normal) Range: 1.1-2.5 Globulin, Total 2.2 g/dL (Normal) Range: 1.5-4.5 Albumin, Serum 4.4 g/dL (Normal) Range: 3.6-4.8 Protein, Total, Serum 6.6 g/dL (Normal) Range: 6.0-8.5 Calcium, Serum 10.6 mg/dL Range: 8.7-10.3 (Abnormal) Carbon Dioxide, Total 25 mmol/L (Normal) Range: 18-29 Chloride, Serum 100 mmol/L (Normal) Range: 97-108 Potassium, Serum 4.2 mmol/L (Normal) Range: 3.5-5.2 Sodium, Serum 143 mmol/L (Normal) Range: 134-144 BUN/Creatinine Ratio 15 (Normal) Range: 11-26 eGFR If Africn Am 43 mL/min/1.73 (Abnormal) eGFR If NonAfricn Am 37 mL/min/1.73 (Abnormal) Creatinine, Serum 1.48 mg/dL Range: 0.57-1.00 (Abnormal) BUN 22 mg/dL (Normal) Range: 8-27 Glucose, Serum 121 mg/dL Range: 65-99 (Abnormal) : Folate (Folic Acid), 17.4 ng/mL (Normal) Comments: PATIENT NOT FASTINGPERFORMED BY: [employer] Odnwbd7493 [facility] [id number] Serum Comments: A serum folate concentration of less than 3.1 ng/mL isconsidered to represent clinical deficiency. :50 Rheumatoid Arthritis Factor Comments: PATIENT NOT FASTINGPERFORMED BY: [employer] Fscqoy7302 [facility] [id number] RA Latex Turbid. 10.5 {IU/mL} Range: 0.0-13.9 (Normal) Sedimentation 7 mm/h (Normal) Comments: PATIENT NOT FASTINGPERFORMED BY: [facility]6370 [facility] [id number] :50 Rate-Westergren Range: 0-40 TSH 2.450 {uIU/mL} Comments: PATIENT NOT FASTINGPERFORMED BY: [facility]6370 [facility] [id number] :50 (Normal) Range: 0.450-4.500 Vitamin B12 1684 pg/mL Comments: PATIENT NOT FASTINGPERFORMED BY: [facility]6370 [facility] [id number] :50 (Abnormal) Range: 211-946 Vitamin D, 25-Hydroxy 75.1 ng/mL Comments: PATIENT NOT FASTINGPERFORMED BY: [facility]6370 [facility] [id number] :50 (Normal) Range: 30.0-100.0 Comments: Vitamin D deficiency has been defined by the Nolan ofMedicine and an Endocrine Society practice guideline as alevel of serum 25-OH vitamin D less than 20 ng/mL (1,2).The Endocrine Society went on to further define vitamin Dinsufficiency as a level between 21 and 29 ng/mL (2).1. IOM (Nolan of Medicine). 2010. Dietary reference intakes for calcium and D. [place]: The National Academies Press.2. Stephon MF, Ana NC, Alka ROMERO, et al. Evaluation, treatment, and prevention of vitamin D deficiency: an Endocrine Society clinical practice guideline. JCEM. 2010; 96(7):1911-30. :57 Lower Respiratory Culture Comments: PATIENT NOT FASTINGPERFORMED BY: [facility]6370 [facility] [id number] Information: SRC:[facility] [id number] Result 1 RRF (Normal) Comments: Routine respiratory hermelindo Lower Respiratory Culture Final report (Normal) :01 MICROALBUMIN: CREATININE RATIO Comments: PATIENT WAS FASTINGPERFORMED BY: [employer] Icwqxm6071 [facility] [id number] (45636) AND (19529) Microalb/Creat Ratio 22.8 {mg/g_creat} (Normal) Range: 0.0-30.0 Microalbumin, Urine 18.8 ug/mL (Abnormal) Range: 0.0-17.0 Creatinine, Urine 82.6 mg/dL (Normal) Range: 15.0-278.0 : URINALYSIS (49514) Comments: PATIENT WAS FASTINGPERFORMED BY: [employer] Cjqbdj1126 [facility] [id number] Microscopic Examination See below: (Normal) Comments: Microscopic was indicated and was performed. Nitrite, Urine Negative (Normal) Urobilinogen,Semi-Qn 0.2 mg/dL (Normal) Range: 0.0-1.9 Bilirubin Negative (Normal) Occult Blood Negative (Normal) Ketones Negative (Normal) Glucose 2+ (Abnormal) Protein Negative (Normal) WBC Esterase Trace (Abnormal) Appearance Clear (Normal) Urine-Color Yellow (Normal) pH 6.5 (Normal) Range: 5.0-7.5 Specific Preston 1.020 (Normal) Range: 1.005-1.030 :01 Metabolic Panel, Comments: PATIENT WAS FASTINGPERFORMED BY: [facility] Alztpi9075 [facility] [id number] Information: [id number], [id number] Comprehensive (79675) ALT (SGPT) 17 [iU]/L (Normal) Range: 0-32 AST (SGOT) 20 [iU]/L (Normal) Range: 0-40 Alkaline Phosphatase, S 81 [iU]/L (Normal) Range: 39-117 Bilirubin, Total 0.4 mg/dL (Normal) Range: 0.0-1.2 A/G Ratio 2.0 (Normal) Range: 1.1-2.5 Globulin, Total 2.2 g/dL (Normal) Range: 1.5-4.5 Albumin, Serum 4.4 g/dL (Normal) Range: 3.6-4.8 Protein, Total, Serum 6.6 g/dL (Normal) Range: 6.0-8.5 Calcium, Serum 10.7 mg/dL (Abnormal) Range: 8.7-10.3 Carbon Dioxide, Total 24 mmol/L (Normal) Range: 18-29 Chloride, Serum 101 mmol/L (Normal) Range: 97-108 Potassium, Serum 4.4 mmol/L (Normal) Range: 3.5-5.2 Sodium, Serum 144 mmol/L (Normal) Range: 134-144 BUN/Creatinine Ratio 18 (Normal) Range: 11-26 eGFR If Africn Am 35 mL/min/1.73 (Abnormal) eGFR If NonAfricn Am 31 mL/min/1.73 (Abnormal) Creatinine, Serum 1.73 mg/dL (Abnormal) Range: 0.57-1.00 BUN 31 mg/dL (Abnormal) Range: 8-27 Glucose, Serum 110 mg/dL (Abnormal) Range: 65-99 :01 CALCIFEDIOL (70607) Comments: PATIENT WAS FASTINGPERFORMED BY: [employer] Formerly [facility] HospitalVuCOMPPending sale to [facility] [id number] Vitamin D, 25-Hydroxy 101.0 ng/mL (Abnormal) Range: 30.0-100.0 Comments: Vitamin D deficiency has been defined by the Nolan ofMedicine and an Endocrine Society practice guideline as alevel of serum 25-OH vitamin D less than 20 ng/mL (1,2).The Endocrine Society went on to further define vitamin Dinsufficiency as a level between 21 and 29 ng/mL (2).1. IOM (Nolan of Medicine). 2010. Dietary reference intakes for calcium and D. [place]: The National Academies Press.2. Stephon MF, Ana NC, Alka ROEMRO, et al. Evaluation, treatment, and prevention of vitamin D deficiency: an Endocrine Society clinical practice guideline. JCEM. 2010; 96(7):1911-30. :01 Lipid Panel (85646) Comments: PATIENT WAS FASTINGPERFORMED BY: [employer]6370 Wu [facility] [id number] LDL/HDL Ratio 1.4 {ratio_units} (Normal) Range: 0.0-3.2 Comments: LDL/HDL Ratio Men Women 1/2 Avg.Risk 1.0 1.5 Av g.Risk 3.6 3.2 2X Avg.Risk 6.2 5.0 3X Avg.Risk 8.0 6.1 LDL Cholesterol Calc 46 mg/dL (Normal) Range: 0-99 VLDL Cholesterol Yamilka 34 mg/dL (Normal) Range: 5-40 HDL Cholesterol 32 mg/dL (Abnormal) Comments: According to ATP-III Guidelines, HDL-C >59 mg/dL is considered anegative risk factor for CHD. Triglycerides 172 mg/dL (Abnormal) Range: 0-149 Cholesterol, Total 112 mg/dL (Normal) Range: 100-199 :06 HgA1C , Office (41867) HgA1C , Office 6.4 % (Normal) Range: 4.6 - 7.1 :06 Blood Glucose , Office (22388) Blood Glucose , Office 168 (Normal) :43 CBC W/Diff, Automated Comments: Test performed at:[facility] Raoenrrhrm50[address] [place] [address] Absolute Lymph 1.33 {X10_3/ul} (Normal) Range: 0.83-4.51 Absolute Neut 5.7 {X10_3/uL} (Normal) Range: 2.0-7.7 IM GRAN % 0.600 % (Normal) Range: 0.0-0.9 Comments: IG% - Immature Granulocytes (promyelocytes, myelocytes andmetamyelocytes) > 1% indicates that a LEFT SHIFT is Present. BASO% 0.5 % (Normal) Range: 0-1 EO% 3.6 % (Normal) Range: 0-5 MONO% 9.8 % (Normal) Range: 0-10 LY% 16.1 % (Abnormal) Range: 19-41 NEUT% 69.4 % (Normal) Range: 47-70 MPV 9.9 fL (Normal) Range: 6.2-12.0 PLT 252 K/mm3 (Normal) Range: 150-450 RDW SD 48.7 fL (Abnormal) Range: 35.1-43.9 RDW CV 14.4 % (Normal) Range: 11.6-14.6 MCHC 31.9 {g/gl} (Abnormal) Range: 32-36 MCH 29.6 pg (Normal) Range: 27.0-32.0 MCV 92.7 fL (Normal) Range: 81-99 HCT 39.5 % (Normal) Range: 37-47 HGB 12.6 g/dL (Normal) Range: 12.0-15.0 RBC 4.26 {M/mm3} (Normal) Range: 4.2-5.4 WBC 8.3 K/mm3 (Normal) Range: 4.4-11.0 :43 Magnesium Comments: Test performed at:[facility] [address] [place] [address] 33[address] MG 1.6 mg/dL (Abnormal) Range: 1.8-2.4 :43 Protein+Creatinine Ratio,Urine Comments: Test performed at:[facility] [address]bit[address] [place] [address] [id number] PROT:CRE RATIO 143 {mg/g_CRE} (Normal) Range: 0-200 PROTEIN,UR.RAN. 16.0 mg/dL (Abnormal) UR CREAT 111.6 mg/dL (Normal) :43 Renal Profile Comments: Test performed at:[facility] W[address]upfgq[address] [place] [address] 745231 CO2 29.0 mmol/L (Normal) Range: 21.0-32.0 CL 104 mmol/L (Normal) Range: 98-107 K 3.6 mmol/L (Normal) Range: 3.5-5.1 NA 141 mmol/L (Normal) Range: 136-145 PHOS 3.2 mg/dL (Normal) Range: 2.5-4.9 CA 9.4 mg/dL (Normal) Range: 8.5-10.1 ALB 3.6 g/dL (Normal) Range: 3.4-5.0 BUN/CRE 17.3 {RATIO} (Normal) Range: 10-20 EST GFR - AA 45 mL/min (Abnormal) EST GFR 37 mL/min (Abnormal) CREAT,SERUM 1.5 mg/dL (Abnormal) Range: 0.6-1.0 BUN 26 mg/dL (Abnormal) Range: 7-18 GLU 110 mg/dL (Normal) Range: 70-110 Comments: Fasting Glucose result from 110 to <126 mg/dLsuggests IMPAIRED HOMEOSTASIS per A.D.A. criteria. :43 Uric Acid Comments: Test performed at:[facility] [address]sm[address] [place], [place] [id number] URIC 7.5 mg/dL (Abnormal) Range: 2.6-6.0 :43 Vitamin D,25 Hydroxy Comments: Test performed at:[facility] [address] [place], [place] [id number] Vitamin D 25-OH 48.0 ng/mL (Normal) Comments: Vitamin D 25(OH) Status Range Deficiency <20 ng/mL (50nmol/L) Insuffciency 20 - 30 ng/mL (50 - 75 nmol/L) Sufficiency 30 - 100 ng/mL (75 - 250 nmol/L) Toxicity >100 ng/mL (>250 nmol/L) :16 HgA1C , Office (01457) HgA1C , Office 5.6 % (Normal) Range: 4.6 - 7.1 :16 Blood Glucose , Office (46445) Blood Glucose , Office 113 (Normal) :35 CALCIUM SERUM (91352) Comments: PATIENT NOT FASTINGPERFORMED BY: [employer] [id number] Information: [id number] Calcium, Serum 10.0 mg/dL (Normal) Range: 8.6-10.2 :55 HEIDI Negative (Normal) Comments: Performed at: [facility] Awareness Card[address] [id number] Director: Taurus Morrissey MD, Phone: [phone] :55 CBCD ALC 1.15 {X10_3/ul} (Normal) Range: 0.83-4.51 ANC 5.7 {X10_3/uL} (Normal) Range: 2.0-7.7 IG% 0.700 % (Normal) Range: 0.0-0.9 Comments: IG% - Immature Granulocytes (promyelocytes, myelocytes andmetamyelocytes) > 1% indicates that a LEFT SHIFT is Present. B% 1.0 % (Normal) Range: 0-1 E% 3.8 % (Normal) Range: 0-5 M% 10.1 % (Abnormal) Range: 0-10 L% 14.2 % (Abnormal) Range: 19-41 N% 70.2 % (Abnormal) Range: 47-70 MPV 10.3 fL (Normal) Range: 6.2-12.0 PLT 317 K/mm3 (Normal) Range: 150-450 RDWSD 47.0 fL (Abnormal) Range: 35.1-43.9 RDWCV 14.4 % (Normal) Range: 11.6-14.6 MCHC 32.8 {g/gl} (Normal) Range: 32-36 MCH 29.8 pg (Normal) Range: 27.0-32.0 MCV 91.0 fL (Normal) Range: 81-99 HCT 40.3 % (Normal) Range: 37-47 HGB 13.2 g/dL (Normal) Range: 12.0-15.0 RBC 4.43 {M/mm3} (Normal) Range: 4.2-5.4 WBC 8.1 K/mm3 (Normal) Range: 4.4-11.0 :55 CCP 10 {units} (Normal) Range: 0-19 Comments: Negative <20Weak positive 20 - 39Moderate positive 40 - 59Strong positive >59 :55 CMP GAP 10 (Normal) Range: 5-15 CO2 24.0 mmol/L (Normal) Range: 21.0-32.0 CL 106 mmol/L (Normal) Range: 98-107 K 3.7 mmol/L (Normal) Range: 3.5-5.1 NA 140 mmol/L (Normal) Range: 136-145 BIT 0.50 mg/dL (Normal) Range: 0.00-1.00 ALT 33 U/L (Normal) Range: 12-78 ALK 80 U/L (Normal) Range: 45-117 AST 26 U/L (Normal) Range: 15-37 CA 9.9 mg/dL (Normal) Range: 8.5-10.1 AG 1.2 {RATIO} (Normal) Range: 0.9-2.4 GLOB 3.3 g/dL (Normal) Range: 2.7-4.2 ALB 3.9 g/dL (Normal) Range: 3.4-5.0 TPROT 7.2 g/dL (Normal) Range: 6.4-8.2 BC 15.0 {RATIO} (Normal) Range: 10-20 GFRAA 36 mL/min (Abnormal) GFR 30 mL/min (Abnormal) CREAT 1.8 mg/dL (Abnormal) Range: 0.6-1.0 BUN 27 mg/dL (Abnormal) Range: 7-18 GLU 110 mg/dL (Normal) Range: 70-110 Comments: Fasting Glucose result from 110 to <126 mg/dLsuggests IMPAIRED HOMEOSTASIS per A.D.A. criteria. :55 CRP 3.06 mg/L (Abnormal) Range: 0.0-3.0 Comments: C-Reactive Protein (CRP) provides useful information for thediagnosis, therapy and monitoring of inflammatory processesand associated diseases. For the evaluation of Relative Riskfor Cardiovascular Dise ase, a High Sensitivity CRP (HSCRP)should be ordered. :55 HEBSAB Non Reactive (Normal) Comments: Non Reactive: Inconsistent with immunity,less than 10 mIU/mLReactive: Consistent with immunity,greater than 9.9 mIU/mL :55 HEBSAG ttHEBSAG Negative (Normal) Comments: Performed at: - Lab[address] [id number] Director: Taurus Morrissey MD, Phone: [phone] at: [facility] LabCo[address] [id number] 1Lab Director: Juan Carlos Mathew MD, Phone: [phone] :55 HECAB tHECAB 0.1 {s/co_ratio} (Normal) Range: 0.0-0.9 Comments: Negative: < 0.8Indeterminate 0.8 - 0.9Positive: > 0.9In order to reduce the incidence of a false positiveresult, the CDC recommends that all s/co ratiosbetween 1.0 and 10.9 be confirmed by a more specificsupplemental or PCR testing. [facility] offers HCV Abw/Reflex to Verification test #[id number]. :55 RF < 10.0 {IU/mL} (Normal) :55 SED tSEDRATE 7 mm/h (Normal) Range: 0-30 :55 VITD 45.5 mg/mL (Normal) Comments: Vitamin D 25(OH) Status RangeDeficiency <20 ng/mL (50nmol/L)Insuffciency 20 - 30 ng/mL (50 - 75 nmol/L)Sufficiency 30 - 100 ng/mL (75 - 250 nmol/L)Toxicity >100 ng/mL (>250 nmol/L) :05 CALCIFEDIOL (05666) Comments: PATIENT NOT FASTINGPERFORMED BY: [facility]6370 [facility] [id number] Information: [id number] Vitamin D, 25-Hydroxy 34.1 ng/mL (Normal) Range: 30.0-100.0 Comments: Vitamin D deficiency has been defined by the Nolan ofOhio[facility] Hospitalcine and an Endocrine Society practice guideline as alevel of serum 25-OH vitamin D less than 20 ng/mL (1,2).The Endocrine Society went on to further define vitamin Dinsufficiency as a level between 21 and 29 ng/mL (2).1. IOM (Nolan of Medicine). 2010. Dietary reference intakes for calcium and D. [place]: The National Academies Press.2. Stephon MF, Ana NC, Alka ROMERO, et al. Evaluation, treatment, and prevention of vitamin D deficiency: an Endocrine Society clinical practice guideline. JCEM. 2010; 96(7):1911-30. :05 CALCIUM SERUM (78881) Comments: PATIENT NOT FASTINGPERFORMED BY: [facility]6370 [facility] [id number] Calcium, Serum 10.3 mg/dL (Abnormal) Range: 8.6-10.2 :43 CALCIFIDIOL (91560) VIT D Comments: PATIENT NOT FASTINGPERFORMED BY: [facility]6370 [facility] [id number] Information: [id number] 25 Vitamin D, 25-Hydroxy 44.7 ng/mL (Normal) Range: 30.0-100.0 Comments: Vitamin D deficiency has been defined by the Nolan ofMedicine and an Endocrine Society practice guideline as alevel of serum 25-OH vitamin D less than 20 ng/mL (1,2).The Endocrine Society went on to further define vitamin Dinsufficiency as a level between 21 and 29 ng/mL (2).1. IOM (Nolan of Medicine). 2010. Dietary reference intakes for calcium and D. [place]: The National Academies Press.2. Stephon MF, Ana ROY, Alka ROMERO, et al. Evaluation, treatment, and prevention of vitamin D deficiency: an Endocrine Society clinical practice guideline. JCEM. 2010; 96(7):1911-30. 84-Mau-088600:36 URINE CALCIUM KAITLIN TIMED Comments: PATIENT NOT FASTINGPERFORMED BY: [facility]6370 [facility] [id number] Information: [id number] 1950ML START 05/21@630AM FINISH 05/22/14@6 30AM 24 Hour (00904) Calcium, Urine 24hr 93.6 {mg/24_hr} (Abnormal) Range: 100.0-300.0 Calcium, Urine 4.8 mg/dL (Normal) 15-Fav-591831:43 PARATHORMONE (23693) Comments: PATIENT NOT FASTINGPERFORMED BY: [facility]6370 [facility] [id number] PTH, Intact 22 pg/mL (Normal) Range: 15-65 22-Yve-83684:56 Metabolic Panel, Basic Comments: drawn next ; PATIENT NOT FASTINGPERFORMED BY: [facility]6370 [facility] [id number] Information: [id number] (28753) Calcium, Serum 10.5 mg/dL (Abnormal) Range: 8.6-10.2 Carbon Dioxide, Total 22 mmol/L (Normal) Range: 19-28 Comments: Effective May 15, 2014, the reference interval for Carbon Dioxide, Total will be changing to: 0 - 30 days - 31 d - 5 months 15 - 6 m - 11 months 15 - 25 1 - 12 years 17 - 27 > 12 years 18 - 29 Chloride, Serum 102 mmol/L (Normal) Range: 97-108 Potassium, Serum 4.5 mmol/L (Normal) Range: 3.5-5.2 Sodium, Serum 144 mmol/L (Normal) Range: 134-144 BUN/Creatinine Ratio 14 (Normal) Range: 11-26 eGFR If Africn Am 40 mL/min/1.73 (Abnormal) eGFR If NonAfricn Am 35 mL/min/1.73 (Abnormal) Creatinine, Serum 1.58 mg/dL (Abnormal) Range: 0.57-1.00 BUN 22 mg/dL (Normal) Range: 8-27 Glucose, Serum 113 mg/dL (Abnormal) Range: 65-99 0-Yyq-426461:50 METABOLIC PANEL, Comments: PATIENT NOT FASTINGPERFORMED BY: LabCoGerald [facility] CenterWvebbs6544 [facility] [id number] Information: [id number] COMPREHENSIVE (83680) ALT (SGPT) 22 [iU]/L (Normal) Range: 0-32 AST (SGOT) 25 [iU]/L (Normal) Range: 0-40 Alkaline Phosphatase, S 74 [iU]/L (Normal) Range: 39-117 Bilirubin, Total 0.2 mg/dL (Normal) Range: 0.0-1.2 A/G Ratio 2.2 (Normal) Range: 1.1-2.5 Globulin, Total 1.9 g/dL (Normal) Range: 1.5-4.5 Albumin, Serum 4.1 g/dL (Normal) Range: 3.6-4.8 Protein, Total, Serum 6.0 g/dL (Normal) Range: 6.0-8.5 Calcium, Serum 10.3 mg/dL (Abnormal) Range: 8.6-10.2 Carbon Dioxide, Total 23 mmol/L (Normal) Range: 19-28 Comments: Effective May 15, 2014, the reference interval for Carbon Dioxide, Total will be changing to: 0 - 30 days 15 - 31 d - 5 months 15 - 6 m - 11 months 15 - 1 - 12 years 17 - 27 > 12 years 18 - 29 Chloride, Serum 103 mmol/L (Normal) Range: 97-108 Potassium, Serum 4.0 mmol/L (Normal) Range: 3.5-5.2 Sodium, Serum 141 mmol/L (Normal) Range: 134-144 BUN/Creatinine Ratio 12 (Normal) Range: 11-26 eGFR If Africn Am 39 mL/min/1.73 (Abnormal) eGFR If NonAfricn Am 34 mL/min/1.73 (Abnormal) Creatinine, Serum 1.60 mg/dL (Abnormal) Range: 0.57-1.00 BUN 19 mg/dL (Normal) Range: 8-27 Glucose, Serum 123 mg/dL (Abnormal) Range: 65-99 :13 HgA1C , Office (60043) HgA1C , Office 6.5 % (Normal) Range: 4.6 - 7.1 :13 Blood Glucose , Office (80203) Blood Glucose , Office 163 (Normal) :41 CBCD ANC 8.3 {X10_3/uL} (Abnormal) Range: 2.0-7.7 IG% 0.600 % (Normal) Range: 0.0-0.9 Comments: IG% - Immature Granulocytes (promyelocytes, myelocytes andmetamyelocytes) > 1% indicates that a LEFT SHIFT is Present. B% 0.4 % (Normal) Range: 0-1 E% 2.5 % (Normal) Range: 0-5 M% 7.8 % (Normal) Range: 0-10 L% 11.2 % (Abnormal) Range: 19-41 MPV 9.7 fL (Normal) Range: 6.2-12.0 N% 77.5 % (Abnormal) Range: 47-70 PLT 288 K/mm3 (Normal) Range: 150-450 RDWSD 45.6 fL (Abnormal) Range: 35.1-43.9 RDWCV 13.8 % (Normal) Range: 11.6-14.6 MCHC 34.3 {g/gl} (Normal) Range: 32-36 MCH 30.8 pg (Normal) Range: 27.0-32.0 MCV 90.0 fL (Normal) Range: 81-99 HCT 39.7 % (Normal) Range: 37-47 HGB 13.6 g/dL (Normal) Range: 12.0-15.0 RBC 4.41 {M/mm3} (Normal) Range: 4.2-5.4 WBC 10.7 K/mm3 (Normal) Range: 4.4-11.0 :38 MICROALBUMIN: CREATININE RATIO Comments: PATIENT WAS FASTINGPERFORMED BY: [employer]Pending sale to [facility] [id number] (97279) AND (95672) Microalb/Creat Ratio 6.2 {mg/g_creat} (Normal) Range: 0.0-30.0 Microalbumin, Urine 2.2 ug/mL (Normal) Range: 0.0-17.0 Creatinine, Urine 35.7 mg/dL (Normal) Range: 15.0-278.0 :38 URINALYSIS (49400) Comments: PATIENT WAS FASTINGPERFORMED BY: ThoughtLeadr6370 Carbonlights SolutionsNovant Health [facility] [id number] Microscopic Examination MICRON (Normal) Comments: Microscopic follows if indicated. Nitrite, Urine Negative (Normal) Urobilinogen,Semi-Qn 0.2 mg/dL (Normal) Range: 0.0-1.9 Bilirubin Negative (Normal) Occult Blood Negative (Normal) Ketones Negative (Normal) Glucose Negative (Normal) Protein Negative (Normal) WBC Esterase Negative (Normal) Appearance Clear (Normal) Urine-Color Yellow (Normal) pH 7.5 (Normal) Range: 5.0-7.5 Specific Preston 1.010 (Normal) Range: 1.005-1.030 :38 CALCIFEDIOL (85253) Comments: PATIENT WAS FASTINGPERFORMED BY: BillogramNovant Health [facility] [id number] Vitamin D, 25-Hydroxy 44.7 ng/mL (Normal) Range: 30.0-100.0 Comments: Vitamin D deficiency has been defined by the Nolan ofMedicine and an Endocrine Society practice guideline as alevel of serum 25-OH vitamin D less than 20 ng/mL (1,2).The Endocrine Society went on to further define vitamin Dinsufficiency as a level between 21 and 29 ng/mL (2).1. IOM (Nolan of Medicine). 2010. Dietary reference intakes for calcium and D. [place]: The National Academies Press.2. Stephon MF, Ana ROY, Alka ROMERO, et al. Evaluation, treatment, and prevention of vitamin D deficiency: an Endocrine Society clinical practice guideline. JCEM. 2010; 96(7):1911-30. :38 TSH (60387) Comments: PATIENT WAS FASTINGPERFORMED BY: [facility] Cedjzw0163 Wu [facility] [id number] TSH 2.930 {uIU/mL} (Normal) Range: 0.450-4.500 :38 CBC with manual diff Comments: PATIENT WAS FASTINGPERFORMED BY: [facility] Mvlubn5964 [facility] [id number] Information: [id number] (23004) Immature Grans (Abs) 0.0 {x10E3/uL} (Normal) Range: 0.0-0.1 Immature Granulocytes 0 % (Normal) Range: 0-2 Baso (Absolute) 0.0 {x10E3/uL} (Normal) Range: 0.0-0.2 Eos (Absolute) 0.2 {x10E3/uL} (Normal) Range: 0.0-0.4 Monocytes(Absolute) 0.9 {x10E3/uL} (Normal) Range: 0.1-0.9 Lymphs (Absolute) 1.7 {x10E3/uL} (Normal) Range: 0.7-3.1 Neutrophils (Absolute) 6.5 {x10E3/uL} (Normal) Range: 1.4-7.0 Basos 0 % (Normal) Range: 0-3 Eos 2 % (Normal) Range: 0-5 Monocytes 9 % (Normal) Range: 4-12 Lymphs 18 % (Normal) Range: 14-46 Neutrophils 71 % (Normal) Range: 40-74 Platelets 278 {x10E3/uL} (Normal) Range: 155-379 RDW 14.0 % (Normal) Range: 12.3-15.4 MCHC 32.6 g/dL (Normal) Range: 31.5-35.7 MCH 29.2 pg (Normal) Range: 26.6-33.0 MCV 90 fL (Normal) Range: 79-97 Hematocrit 38.6 % (Normal) Range: 34.0-46.6 Hemoglobin 12.6 g/dL (Normal) Range: 11.1-15.9 RBC 4.31 {x10E6/uL} (Normal) Range: 3.77-5.28 WBC 9.3 {x10E3/uL} (Normal) Range: 3.4-10.8 :38 Metabolic Panel, Comprehensive Comments: PATIENT WAS FASTINGPERFORMED BY: [facility] Ejbtvu7673 [facility] [id number] (40640) ALT (SGPT) 22 [iU]/L (Normal) Range: 0-32 AST (SGOT) 23 [iU]/L (Normal) Range: 0-40 Alkaline Phosphatase, S 73 [iU]/L (Normal) Range: 39-117 Bilirubin, Total 0.4 mg/dL (Normal) Range: 0.0-1.2 A/G Ratio 1.9 (Normal) Range: 1.1-2.5 Globulin, Total 2.2 g/dL (Normal) Range: 1.5-4.5 Albumin, Serum 4.1 g/dL (Normal) Range: 3.6-4.8 Protein, Total, Serum 6.3 g/dL (Normal) Range: 6.0-8.5 Calcium, Serum 9.6 mg/dL (Normal) Range: 8.6-10.2 Carbon Dioxide, Total 23 mmol/L (Normal) Range: 19-28 Chloride, Serum 104 mmol/L (Normal) Range: 97-108 Potassium, Serum 4.1 mmol/L (Normal) Range: 3.5-5.2 Sodium, Serum 143 mmol/L (Normal) Range: 134-144 BUN/Creatinine Ratio 18 (Normal) Range: 11-26 eGFR If Africn Am 40 mL/min/1.73 (Abnormal) eGFR If NonAfricn Am 34 mL/min/1.73 (Abnormal) Creatinine, Serum 1.59 mg/dL (Abnormal) Range: 0.57-1.00 BUN 29 mg/dL (Abnormal) Range: 8-27 Glucose, Serum 92 mg/dL (Normal) Range: 65-99 63-Xti-03709:38 Lipid Panel (67194) Comments: PATIENT WAS FASTINGPERFORMED BY: Terpenoid TherapeuticsRutgers - University Behavioral HealthCareFnlujc7768 [facility] [id number] LDL/HDL Ratio 1.2 {ratio_units} (Normal) Range: 0.0-3.2 LDL Cholesterol Calc 53 mg/dL (Normal) Range: 0-99 VLDL Cholesterol Yamilka 27 mg/dL (Normal) Range: 5-40 HDL Cholesterol 45 mg/dL (Normal) Comments: According to ATP-III Guidelines, HDL-C >59 mg/dL is considered anegative risk factor for CHD. Triglycerides 135 mg/dL (Normal) Range: 0-149 Cholesterol, Total 125 mg/dL (Normal) Range: 100-199 03-Kga-24357:[id number] LIPID PANEL ([id number]) Comments: PATIENT WAS FASTINGPERFORMED BY: [facility] TherapeuticsRut[facility] - [facility] [id number] [facility] [id number] Information: [id number] LDL/HDL Ratio 1.6 {ratio_units} (Normal) Range: 0.0-3.2 LDL Cholesterol Calc 76 mg/dL (Normal) Range: 0-99 VLDL Cholesterol Yamilka 30 mg/dL (Normal) Range: 5-40 HDL Cholesterol 49 mg/dL (Normal) Comments: According to ATP-III Guidelines, HDL-C >59 mg/dL is considered anegative risk factor for CHD. Triglycerides 148 mg/dL (Normal) Range: 0-149 Cholesterol, Total 155 mg/dL (Normal) Range: 100-199 [id number] FECAL OCCULT HGB ASSAY- tubes sent home ([id number]) FECAL OCCULT HGB ASSAY, QUAL, 1-3 SIMULTANEOU negative (Normal) [id number] Nuclear Stress Test Radiology Report See Note (Normal) Comments: EXERCISE TOLERANCE TEST: The patient underwent pharmacologic (regadenoson) evaluation with a peakheart rate of 91 beats per minute (57% predicted maximum heart rate) audrey peak blood pressure of 146/74 m mHg. The baseline ECG demonstrated an initial ECG pattern compatible with limblead misplacement. Status post correction, the ECG subsequentlydemonstrated underlying sinus rhythm. The peak pharmacologi c ECGdemonstrated no obvious ECG changes. There were no obvious cardiac dysrhythmias pretest, during pharmacologicinfusion, or recovery. The patient had no complaint of chest discomfort during pharmacol ogicinfusion or recovery. The examination was discontinued secondary to completion of protocol. IMPRESSION:1. Pharmacologic (regadenoson) evaluation.2. Peak pharmacologic ECG with no obvious ECG haddad es.3. Nuclear images pending. MYOCARDIAL PERFUSION IMAGING STUDY: TECHNIQUE:The patient was injected with 10.9 mCi of Tc99m Cardiolite andsubsequently rest SPECT Cardiolite nuclear imaging was obtained in thehorizontal long, vertical long and short axes views. The patientunderwent pharmacologic (Regadenoson) evaluation with a peak heart rateof 91 beats per minute (57% predicted maximum heart rate) w ith a peakblood pressure of 146/74 mmHg. The patient was injected with 31.6 mCi fhPt60c Cardiolite and subsequently stress SPECT Cardiolite nuclear imagingwas obtained in the horizontal long, vertical long and short axes views.A gated Cardiolite study at peak stress was obtained. INTERPRETATION:Rest and stress SPECT Cardiolite nuclear imaging demonstrate extracardiac/hepatic and gastrointestinal trac er uptake near the inferior segments.There is notation of diminished tracer uptake in portions of the highmembranous interventricular septum. Otherwise there appears to berelative uniform tracer uptake . There is end systolic thickening andbrightening. The gated Cardiolite study demonstrates myocardialthickening and inward wall motion. The reported LVEF is 73%. Theaforementioned changes appear com patible with imaging through the highmembranous portion of the interventricular septum with no myocardialperfusion changes considered diagnostic for stress induced myocardialischemia or previous myocard ial injury/infarction. IMPRESSION:1. Rest and stress SPECT Cardiolite nuclear imaging demonstratemyocardial perfusion changes compatible with imaging through the highportion of the membranous intervent ricular septum with no myocardialperfusion changes considered diagnostic for stress induced myocardialischemia or previous myocardial injury/infarction.2. The gated Cardiolite study reports an LVEF of 73%. Dictated on 07/29/13 1056 by Yosi Merchant MDTranscribed on 07/29/13 1340 by Wiliam MASON by Mayur FELIX,Yosi on 07/29/13 9678 Sign by: Yosi Merchant MD 88-Ezh-50534:52 KNEE 1 OR 2 VIEWS Radiology Report See Note Comments: STUDY: X-RAY - RIGHT KNEE REASON FOR EXAM: Female, 62 years old. Pain TECHNIQUE: 5 views of the knee. COMPARISON: None. FINDINGS:No fractures or dislocations (Normal) are demonstrated. Slight amount ofosteophyteformation can be seen about the patellofemoral space. The patellofemoralspace is narrowed slightly. There is moderate narrowing of the medialcompartment. Moderate-sized osteophytes can be seen medially and also inthe area of the intercondylar eminence. There is no appreciablenarrowingof the lateral compartment. There is some bony demineralization. IMPRESSION:Moderate degenerative changes. Signed:Ag Ferguson M.D.July 29, 2013 at 5:00:35 PM [id number] Signed RU/RU If you are the referring phys ician and would like to consult with theradiologist who provided this interpretation, please contact Alejandro Horton at [phone]. If this radiologist is unavailable, youwillbe directed to [facility] radiologist to assist. If you are a patient with a question regarding this report, pleasecontactyour referring physician directly. Professional Interpretation Provided By: [employer], Phone , These documents contain legally protected and confidential healthinformation intended only for the use of the individual or entity namedabove. If you are not the intended recipie nt, you are hereby notifiedthatany disclosure, copying, distribution, or other use of these documents isstrictly prohibited. If you have received this information in error,pleasenotify the sender immedi ately and arrange for the return or destructionofthese documents. Dictated on 07/29/13 1700 by PhyllisAgTranscribed on 07/29/131713 by ITS IMPORTSign by Ag Ferguson on 07/29/131714 Si gn by: Ag Ferguson 08-Tub-42623:52 KNEE 1 OR 2 VIEWS Radiology Report See Note Comments: STUDY: X-RAY - LEFT KNEE REASON FOR EXAM: Female, 62 years old. Pain TECHNIQUE: 4 views of the knee. COMPARISON: None. FINDINGS: No fractures or dislocations (Normal) are demonstrated. There is moderate tomarkednarrowing of the medial compartment. Moderate to large sized osteophytesare noted medially and in the area of the intercondylar eminence. Thereismoderate n arrowing of the patellofemoral space. Moderate sizedosteophytescan be seen about the patellofemoral space. Bony demineralization is observed. IMPRESSION:Moderate to marked degenerative changes. Signed:Ag Ferguson M.D.July 29, 2013 at 5:02:45 PM [id number] Signed RU/RU If you are the referring physician and would like to consult with therad iologist who provided this interpretation, please contact Alejandro Horton at [phone]. If this radiologist is unavailable, youwillbe directed to another radiologist to assist. If you are a sandra ent with a question regarding this report, pleasecontactyour referring physician directly. Professional Interpretation Provided By: [employer], Phone , These documents con tain legally protected and confidential healthinformation intended only for the use of the individual or entity namedabove. If you are not the intended recipient, you are hereby notifiedthatany disclosu re, copying, distribution, or other use of these documents isstrictly prohibited. If you have received this information in error,pleasenotify the sender immediately and arrange for the return or destruc tionofthese documents. Dictated on 07/29/131701 by PhyllisAgTranscribed on 07/29/131715 by ITS IMPORTSign by Ag Ferguson on 07/29/131716 Sign by: Ag Ferguson 85-Jvd-698769:27 CCP ANTIBODY (62421) Comments: PATIENT NOT FASTINGPERFORMED BY: [facility] LabGeekangels6370 [facility] [id number] BY: Awareness Card[address] [id number] CCP Antibodies IgG/IgA 5 {units} (Normal) Range: 0-19 Comments: Negative <20 Weak positive 20 - 39 Moderate positive 40 - 59 Strong positive >59 70-Cmt-231794:27 SED RATE ERYTHROCYTE Comments: PATIENT NOT FASTINGPERFORMED BY: YouLicenserp Kgtxjl7356 [facility] [id number] BY: Awareness Card[address] [id number] (27971) Sedimentation Rate-Westergren 2 mm/h (Normal) Range: 0-40 45-Jeu-590898:27 C-REACTIVE PROTEIN Comments: PATIENT NOT FASTINGPERFORMED BY: [facility] LabForemostrp Ixwwka5988 [facility] [id number] BY: Awareness Card[address] [id number] (58670) C-Reactive Protein, Quant 2.1 mg/L (Normal) Range: 0.0-4.9 91-Wid-768880:27 TSH (36259) Comments: PATIENT NOT FASTINGPERFORMED BY: CB LabForemostrp Ukcxus3501 [facility] [id number] BY: [address] [id number] TSH 1.630 {uIU/mL} (Normal) Range: 0.450-4.500 34-Klm-243941:27 RHEUMATOID FACTOR-QUANT Comments: PATIENT NOT FASTINGPERFORMED BY: Terpenoid TherapeuticsSamuel Ville 6867970 [facility] [id number] BY: [address] [id number] (81425) RA Latex Turbid. 9.7 {IU/mL} (Normal) Range: 0.0-13.9 25-Xut-120148:27 HEIDI (ANTINUCLEAR ANTIBODY) Comments: PATIENT NOT FASTINGPERFORMED BY: LabForemostSamuel Ville 6867970 [facility] [id number] BY: [address] [id number] (14513) HEIDI Direct Negative (Normal) :27 CBC WITH MANUAL DIFF Comments: PATIENT NOT FASTINGPERFORMED BY: [employer] [id number] BY: [address] [id number] Inf ormation: [id number] (62842) Immature Grans (Abs) 0.0 {x10E3/uL} (Normal) Range: 0.0-0.1 Immature Granulocytes 0 % (Normal) Range: 0-2 Baso (Absolute) 0.1 {x10E3/uL} (Normal) Range: 0.0-0.2 Eos (Absolute) 0.3 {x10E3/uL} (Normal) Range: 0.0-0.4 Monocytes(Absolute) 1.0 {x10E3/uL} (Normal) Range: 0.1-1.0 Lymphs (Absolute) 1.4 {x10E3/uL} (Normal) Range: 0.7-4.5 Neutrophils (Absolute) 5.7 {x10E3/uL} (Normal) Range: 1.8-7.8 Basos 1 % (Normal) Range: 0-3 Eos 3 % (Normal) Range: 0-7 Monocytes 11 % (Normal) Range: 4-13 Lymphs 17 % (Normal) Range: 14-46 Neutrophils 68 % (Normal) Range: 40-74 Platelets 263 {x10E3/uL} (Normal) Range: 140-415 RDW 14.4 % (Normal) Range: 12.3-15.4 MCHC 33.3 g/dL (Normal) Range: 31.5-35.7 MCH 29.7 pg (Normal) Range: 26.6-33.0 MCV 89 fL (Normal) Range: 79-97 Hematocrit 42.1 % (Normal) Range: 34.0-46.6 Hemoglobin 14.0 g/dL (Normal) Range: 11.1-15.9 RBC 4.72 {x10E6/uL} (Normal) Range: 3.77-5.28 WBC 8.5 {x10E3/uL} (Normal) Range: 4.0-10.5 94-Jsp-868597:27 METABOLIC PANEL, Comments: PATIENT NOT FASTINGPERFORMED BY: CB [facility] Fpqpfx2464 [facility] [id number] BY: BN [facility] [address] [id number] [facility] (63599) ALT (SGPT) 24 [iU]/L (Normal) Range: 0-32 AST (SGOT) 25 [iU]/L (Normal) Range: 0-40 Alkaline Phosphatase, S 85 [iU]/L (Normal) Range: 47-112 Bilirubin, Total 0.4 mg/dL (Normal) Range: 0.0-1.2 A/G Ratio 1.7 (Normal) Range: 1.1-2.5 Globulin, Total 2.6 g/dL (Normal) Range: 1.5-4.5 Albumin, Serum 4.4 g/dL (Normal) Range: 3.6-4.8 Protein, Total, Serum 7.0 g/dL (Normal) Range: 6.0-8.5 Calcium, Serum 10.4 mg/dL (Abnormal) Range: 8.6-10.2 Carbon Dioxide, Total 24 mmol/L (Normal) Range: 19-28 Chloride, Serum 101 mmol/L (Normal) Range: 97-108 Potassium, Serum 3.8 mmol/L (Normal) Range: 3.5-5.2 Sodium, Serum 141 mmol/L (Normal) Range: 134-144 BUN/Creatinine Ratio 16 (Normal) Range: 11-26 eGFR If Africn Am 40 mL/min/1.73 (Abnormal) eGFR If NonAfricn Am 35 mL/min/1.73 (Abnormal) Creatinine, Serum 1.58 mg/dL (Abnormal) Range: 0.57-1.00 BUN 25 mg/dL (Normal) Range: 8-27 Glucose, Serum 88 mg/dL (Normal) Range: 65-99 :22 HgA1C , Office (40711) HgA1C , Office 5.9 % (Normal) Range: 4.6 - 7.1 :22 Blood Glucose , Office (68106) Blood Glucose , Office 148 (Normal) Comments: non fasting :44 MAGNESIUM (30584) Comments: copy to dr jose mayes; PATIENT NOT FASTINGPERFORMED BY: City BeBe70 [facility] [id number] Magnesium, Serum 2.0 mg/dL (Normal) Range: 1.6-2.6 :44 Metabolic Panel, Basic Comments: copy to dr jose Mayes; PATIENT NOT FASTINGPERFORMED BY: [facility] LabForemost Ouqvho7646 [facility] [id number] Information: [id number] (55097) Calcium, Serum 10.1 mg/dL (Normal) Range: 8.6-10.2 Carbon Dioxide, Total 24 mmol/L (Normal) Range: 19-28 Chloride, Serum 102 mmol/L (Normal) Range: 97-108 Potassium, Serum 4.3 mmol/L (Normal) Range: 3.5-5.2 Sodium, Serum 142 mmol/L (Normal) Range: 134-144 BUN/Creatinine Ratio 14 (Normal) Range: 11-26 eGFR If Africn Am 36 mL/min/1.73 (Abnormal) eGFR If NonAfricn Am 31 mL/min/1.73 (Abnormal) Creatinine, Serum 1.73 mg/dL (Abnormal) Range: 0.57-1.00 BUN 24 mg/dL (Normal) Range: 8-27 Glucose, Serum 141 mg/dL (Abnormal) Range: 65-99 92-Mnh-611898:10 PTT (Activated Partial Comments: PATIENT NOT FASTINGPERFORMED BY: [place] 1246570 [facility] [id number] Thromboplastin Time) (78340) aPTT 30 {sec} (Normal) Range: 24-33 Comments: This test has not been validated for monitoring unfractionated heparintherapy. aPTT-based therapeutic ranges for unfractionated heparintherapy have not been established. For general guidelines onHeparin monitoring, refer to the [facility] Directory of Services. 91-Kcc-698339:10 PT (Prothrobim Time) Comments: PATIENT NOT FASTINGPERFORMED BY: [address] [id number] Information: [id number] (53918) Prothrombin Time 10.4 {sec} (Normal) Range: 9.1-12.0 INR 1.0 (Normal) Range: 0.8-1.2 Comments: Reference interval is for non-anticoagulated patients. . Suggested INR therapeutic range for Vitamin K anta gonist therapy: Standard Dose (moderate intensity therapeutic range): 2.0 - 3.0 Higher intensity therapeutic range 2.5 - 3.5 77-Wyi-530583:10 Potassium Serum (85398) Comments: PATIENT NOT FASTINGPERFORMED BY: [place] 1246570 [facility] [id number] Potassium, Serum 3.9 mmol/L (Normal) Range: 3.5-5.2 83-Lkc-727978:10 Magnesium (86785) Comments: PATIENT NOT FASTINGPERFORMED BY: [place] 1246570 [facility] [id number] Magnesium, Serum 1.9 mg/dL (Normal) Range: 1.6-2.6 :59 HgA1C , Office (83315) HgA1C , Office 5.7 % (Normal) Range: 4.6 - 7.1 :59 Blood Glucose , Office (70616) Blood Glucose , Office 149 (Normal) :08 TSH (57719) Comments: PATIENT WAS FASTINGPERFORMED BY: [address] [id number] TSH 2.390 {uIU/mL} (Normal) Range: 0.450-4.500 :08 URINALYSIS, W/ MICRO (40522) Comments: PATIENT WAS FASTINGPERFORMED BY: Terpenoid TherapeuticsRutgers - University Behavioral HealthCareFzweoe8535 [facility] [id number] Microscopic Examination See below: (Normal) Microscopic Examination MICRON (Normal) Comments: Microscopic follows if indicated. Nitrite, Urine Negative (Normal) Urobilinogen,Semi-Qn 0.2 mg/dL (Normal) Range: 0.0-1.9 Bilirubin Negative (Normal) Occult Blood Negative (Normal) Ketones Negative (Normal) Glucose Negative (Normal) Protein Negative (Normal) Appearance Clear (Normal) WBC Esterase Negative (Normal) pH 7.5 (Normal) Range: 5.0-7.5 Specific Preston 1.013 (Normal) Range: 1.005-1.030 Urine-Color Yellow (Normal) :08 MICROALBUMIN: CREATININE RATIO Comments: PATIENT WAS FASTINGPERFORMED BY: Terpenoid TherapeuticsGerald Champion Regional Medical CenterGmbafm6044 [facility] [id number] (84073) AND (06055) Microalb/Creat Ratio 3.8 {mg/g_creat} (Normal) Range: 0.0-30.0 Microalbumin, Urine 2.9 ug/mL (Normal) Range: 0.0-17.0 Creatinine, Urine 77.3 mg/dL (Normal) Range: 15.0-278.0 :08 METABOLIC PANEL, COMPREHENSIVE Comments: PATIENT WAS FASTINGPERFORMED BY: Terpenoid TherapeuticsRutgers - University Behavioral HealthCareYazrhv2561 [facility] [id number] (24861) ALT (SGPT) 17 [iU]/L (Normal) Range: 0-32 AST (SGOT) 18 [iU]/L (Normal) Range: 0-40 Alkaline Phosphatase, S 74 [iU]/L (Normal) Range: 25-165 Bilirubin, Total 0.4 mg/dL (Normal) Range: 0.0-1.2 A/G Ratio 1.8 (Normal) Range: 1.1-2.5 Globulin, Total 2.3 g/dL (Normal) Range: 1.5-4.5 Albumin, Serum 4.2 g/dL (Normal) Range: 3.6-4.8 Protein, Total, Serum 6.5 g/dL (Normal) Range: 6.0-8.5 Calcium, Serum 9.7 mg/dL (Normal) Range: 8.6-10.2 Carbon Dioxide, Total 24 mmol/L (Normal) Range: 20-32 Chloride, Serum 105 mmol/L (Normal) Range: 97-108 Potassium, Serum 3.4 mmol/L (Abnormal) Range: 3.5-5.2 Comments: Client Requested Flag Sodium, Serum 147 mmol/L (Abnormal) Range: 134-144 BUN/Creatinine Ratio 14 (Normal) Range: 11-26 eGFR If Africn Am 40 mL/min/1.73 (Abnormal) eGFR If NonAfricn Am 35 mL/min/1.73 (Abnormal) Creatinine, Serum 1.57 mg/dL (Abnormal) Range: 0.57-1.00 BUN 22 mg/dL (Normal) Range: 8-27 Glucose, Serum 108 mg/dL (Abnormal) Range: 65-99 :08 LIPID PANEL (32438) Comments: PATIENT WAS FASTINGPERFORMED BY: FAZUA [facility] [id number] LDL/HDL Ratio 2.1 {ratio_units} (Normal) Range: 0.0-3.2 LDL Cholesterol Calc 90 mg/dL (Normal) Range: 0-99 VLDL Cholesterol Yamilka 41 mg/dL (Abnormal) Range: 5-40 HDL Cholesterol 42 mg/dL (Normal) Comments: According to ATP-III Guidelines, HDL-C >59 mg/dL is considered anegative risk factor for CHD. Cholesterol, Total 173 mg/dL (Normal) Range: 100-199 Triglycerides 203 mg/dL (Abnormal) Range: 0-149 :08 CBC WITH MANUAL DIFF Comments: PATIENT WAS FASTINGPERFORMED BY: [employer] Erssap2087 [facility] [id number] Information: ADD [id number] AND DRAW FEE 99 6982 (31158) Immature Grans (Abs) 0.0 {x10E3/uL} (Normal) Range: 0.0-0.1 Immature Granulocytes 0 % (Normal) Range: 0-2 Baso (Absolute) 0.1 {x10E3/uL} (Normal) Range: 0.0-0.2 Eos (Absolute) 0.3 {x10E3/uL} (Normal) Range: 0.0-0.4 Monocytes(Absolute) 0.6 {x10E3/uL} (Normal) Range: 0.1-1.0 Lymphs (Absolute) 1.3 {x10E3/uL} (Normal) Range: 0.7-4.5 Neutrophils (Absolute) 5.6 {x10E3/uL} (Normal) Range: 1.8-7.8 Basos 1 % (Normal) Range: 0-3 Eos 4 % (Normal) Range: 0-7 Monocytes 8 % (Normal) Range: 4-13 Lymphs 16 % (Normal) Range: 14-46 Neutrophils 71 % (Normal) Range: 40-74 Platelets 272 {x10E3/uL} (Normal) Range: 140-415 RDW 14.1 % (Normal) Range: 12.3-15.4 MCHC 32.4 g/dL (Normal) Range: 31.5-35.7 MCH 29.5 pg (Normal) Range: 26.6-33.0 MCV 91 fL (Normal) Range: 79-97 Hematocrit 39.2 % (Normal) Range: 34.0-46.6 Hemoglobin 12.7 g/dL (Normal) Range: 11.1-15.9 RBC 4.30 {x10E6/uL} (Normal) Range: 3.77-5.28 WBC 7.9 {x10E3/uL} (Normal) Range: 4.0-10.5 :08 Microscopic Examination Comments: PATIENT WAS FASTINGPERFORMED BY: LabCoRutgers - University Behavioral HealthCareMwwhmv9426 [facility] [id number] Bacteria None seen (Normal) Mucus Threads Present (Normal) Epithelial Cells (non renal) 0-10 {/hpf} (Normal) Range: 0 - 10 RBC 0-3 {/hpf} (Normal) Range: 0 - 3 WBC 0-5 {/hpf} (Normal) Range: 0 - 5 :49 HgA1C , Office (54195) HgA1C , Office 5.8 % (Normal) Range: 4.6 - 7.1 34-Aiv-34826:49 Blood Glucose , Office (94807) Blood Glucose , Office 142 (Normal) 4-Lxw-056934:13 ALFONZO CULTURE-OTHER (30536) Comments: PATIENT NOT FASTINGPERFORMED BY: Awareness CardPatrick Ville 9706270 [facility] [id number] Information: SRC:THRT [id number] Result 1 RRF (Normal) Comments: Routine respiratory hermelindo Upper Respiratory Culture Final report (Normal) 4-Ywj-716761:30 Rapid Strep Test, Office (91569) Rapid Strep Test, Office Negative (Normal) 47-Rgs-344082:36 URIC ACID BLOOD (16742) Comments: PATIENT NOT FASTINGPERFORMED BY: Awareness Card[address] [id number] Information: [id number] Uric Acid, Serum 6.6 mg/dL (Normal) Range: 2.5-7.1 Comments: Therapeutic target for gout patients: <6.0 :29 Blood Glucose , Office (43638) Blood Glucose , Office 128 (Normal) :29 HgA1C , Office (61083) HgA1C , Office 5.5 % (Normal) Range: 4.6 - 7.1 79-Kyw-706580:11 HgA1C , Office (31097) HgA1C , Office 5.5 % (Normal) Range: 4.6 - 7.1 51-Vsn-721898:11 Blood Glucose , Office (80885) Blood Glucose , Office 127 (Normal) :35 Microscopic Examination Comments: PATIENT WAS FASTINGPERFORMED BY: Awareness CardMclaren Port [facility] Hospital6370 [facility] [id number] Bacteria Few (Normal) Mucus Threads Present (Normal) Cast Type Hyaline casts (Normal) Casts Present {/lpf} (Abnormal) Epithelial Cells (non renal) 0-10 {/hpf} (Normal) Range: 0 - 10 RBC 0-3 {/hpf} (Normal) Range: 0 - 3 WBC 6-10 {/hpf} (Abnormal) Range: 0 - 5 :35 TSH (70663) Comments: PATIENT WAS FASTINGPERFORMED BY: [facility]6370 [facility] [id number] TSH 1.550 {uIU/mL} (Normal) Range: 0.450-4.500 :35 URINALYSIS, W/ MICRO (50817) Comments: PATIENT WAS FASTINGPERFORMED BY: [facility]6370 [facility] [id number] Microscopic Examination See below: (Normal) Nitrite, Urine Negative (Normal) Urobilinogen,Semi-Qn 0.2 mg/dL (Normal) Range: 0.0-1.9 Bilirubin Negative (Normal) Occult Blood Negative (Normal) Ketones Negative (Normal) Glucose Negative (Normal) Protein Negative (Normal) WBC Esterase 1+ (Abnormal) Appearance Clear (Normal) Urine-Color Yellow (Normal) pH 6.5 (Normal) Range: 5.0-7.5 Specific Preston 1.019 (Normal) Range: 1.005-1.030 :35 MICROALBUMIN: CREATININE RATIO Comments: PATIENT WAS FASTINGPERFORMED BY: [facility]6370 [facility] [id number] (41536) AND (63503) Microalb/Creat Ratio 7.8 {mg/g_creat} (Normal) Range: 0.0-30.0 Microalbumin, Urine 17.2 ug/mL (Abnormal) Range: 0.0-17.0 Creatinine, Urine 220.8 mg/dL (Normal) Range: 15.0-278.0 :35 METABOLIC PANEL, COMPREHENSIVE Comments: PATIENT WAS FASTINGPERFORMED BY: [facility]6370 [facility] [id number] (82751) ALT (SGPT) 17 [iU]/L (Normal) Range: 0-40 AST (SGOT) 23 [iU]/L (Normal) Range: 0-40 Alkaline Phosphatase, S 67 [iU]/L (Normal) Range: 25-165 Bilirubin, Total 0.6 mg/dL (Normal) Range: 0.0-1.2 A/G Ratio 2.0 (Normal) Range: 1.1-2.5 Globulin, Total 2.2 g/dL (Normal) Range: 1.5-4.5 Albumin, Serum 4.3 g/dL (Normal) Range: 3.6-4.8 Protein, Total, Serum 6.5 g/dL (Normal) Range: 6.0-8.5 Calcium, Serum 10.0 mg/dL (Normal) Range: 8.6-10.2 Carbon Dioxide, Total 26 mmol/L (Normal) Range: 20-32 Chloride, Serum 103 mmol/L (Normal) Range: 97-108 Potassium, Serum 3.7 mmol/L (Normal) Range: 3.5-5.2 Sodium, Serum 143 mmol/L (Normal) Range: 134-144 BUN/Creatinine Ratio 16 (Normal) Range: 11-26 eGFR If Africn Am 40 mL/min/1.73 (Abnormal) Comments: Note: A persistent eGFR <60 mL/min/1.73 m2 (3 months or more) mayindicate chronic kidney disease. An eGFR >59 mL/min/1.73 m2 with anelevated urine protein also may indicate chronic kidney disease.Calculated using CKD-EPI formula. eGFR If NonAfricn Am 35 mL/min/1.73 (Abnormal) BUN 25 mg/dL (Normal) Range: 8-27 Creatinine, Serum 1.60 mg/dL (Abnormal) Range: 0.57-1.00 Glucose, Serum 97 mg/dL (Normal) Range: 65-99 :35 LIPID PANEL (48250) Comments: PATIENT WAS FASTINGPERFORMED BY: City BeBe70 WealthsimplePending sale to [facility] [id number] LDL/HDL Ratio 1.0 {ratio_units} (Normal) Range: 0.0-3.2 LDL Cholesterol Calc 44 mg/dL (Normal) Range: 0-99 VLDL Cholesterol Yamilka 24 mg/dL (Normal) Range: 5-40 HDL Cholesterol 45 mg/dL (Normal) Comments: According to ATP-III Guidelines, HDL-C >59 mg/dL is considered anegative risk factor for CHD. Triglycerides 121 mg/dL (Normal) Range: 0-149 Cholesterol, Total 113 mg/dL (Normal) Range: 100-199 :35 CBC WITH MANUAL DIFF Comments: PATIENT WAS FASTINGPERFORMED BY: [place] BeBe70 [facility] [id number] Information: [id number] (10666) Immature Grans (Abs) 0.0 {x10E3/uL} (Normal) Range: 0.0-0.1 Immature Granulocytes 0 % (Normal) Range: 0-2 Baso (Absolute) 0.0 {x10E3/uL} (Normal) Range: 0.0-0.2 Eos (Absolute) 0.3 {x10E3/uL} (Normal) Range: 0.0-0.4 Monocytes(Absolute) 0.7 {x10E3/uL} (Normal) Range: 0.1-1.0 Lymphs (Absolute) 1.1 {x10E3/uL} (Normal) Range: 0.7-4.5 Neutrophils (Absolute) 5.0 {x10E3/uL} (Normal) Range: 1.8-7.8 Basos 0 % (Normal) Range: 0-3 Eos 4 % (Normal) Range: 0-7 Monocytes 9 % (Normal) Range: 4-13 Lymphs 16 % (Normal) Range: 14-46 Neutrophils 71 % (Normal) Range: 40-74 Platelets 268 {x10E3/uL} (Normal) Range: 140-415 RDW 13.8 % (Normal) Range: 11.7-15.0 MCHC 32.8 g/dL (Normal) Range: 32.0-36.0 MCH 29.3 pg (Normal) Range: 27.0-34.0 MCV 89 fL (Normal) Range: 80-98 Hematocrit 38.4 % (Normal) Range: 34.0-44.0 Hemoglobin 12.6 g/dL (Normal) Range: 11.5-15.0 RBC 4.30 {x10E6/uL} (Normal) Range: 3.80-5.10 WBC 7.2 {x10E3/uL} (Normal) Range: 4.0-10.5 :33 HgA1C , Office (81717) HgA1C , Office 5.7 % (Normal) Range: 4.6 - 7.1 :33 Blood Glucose , Office (29293) Blood Glucose , Office 115 (Normal) 88-Gct-909158:50 KIDNEY Radiology Report See Note (Normal) Comments: PROCEDURE: RENAL ULTRASOUND - LIMITED REASON FOR EXAM: Female, 60 years old. Abnormal blood chemistry. TECHNIQUE: Ultrasound evaluation of the bilateral kidneys was performedwith real-time ultras onography and static grayscale imaging. COMPARISON: CT scan 06/29/08. FINDINGS: RIGHT KIDNEY: Normal location of the right kidney which is normal insize.The right kidney measures 11.7 x 5.5 x 4.1 cm. There is a normal cortexof the right kidney. The renal cortex measures 1.0 cm. There is norightrenal mass or cyst. There is a 2-mm echogenic focus in the upper polecortex and a 4-mm echogenic focus in the lower pole cortex withoutdemonstrated distal acoustic shadowing. These may represent foci ofnephrocalcinosis, however, the appearance is nonspecific. There are noright renal calculi within the r enal collecting system. There is norighthydronephrosis. LEFT KIDNEY: Normal location of the left kidney which is normal in size.The left kidney measures 10.1 x 4.4 x 3.4 cm. There is a normal cortexo fthe left kidney. The renal cortex measures 1.3 cm. There is no leftrenalmass or cyst. There are several echogenic foci in the renal cortex,largest of which measures 4 mm and which is seen in the upp er pole. Noneof these cast distal acoustic shadow to confirm that it is calcific,however, they might represent foci of nephrocalcinosis. There are no leftrenal calculi within the renal collecting syste m. There is no lefthydronephrosis. IMPRESSION:Tentative identification of small foci of nephrocalcinosis in the renalcortices bilaterally.Otherwise, normal exam.No evidence for hydronephrosis. Dicta jorge on 07/18/11 1052 by Marciano Fountain MDTranscribed on 07/19/11 0429 by ITS IMPORTSign by Marciano Fountain MD on 07/19/11 0430 Sign by: Marciano Fountain MD 66-Zoq-958688:50 PARATHORMONE (40348) Comments: PATIENT NOT FASTINGPERFORMED BY: LabCoRut[facility] - [facility] Behavioral HealthCareRooqup7211 [facility] [id number] PTH, Intact 20 pg/mL (Normal) Range: 15-65 59-Rhm-243921:50 Metabolic Panel, Comments: PATIENT NOT FASTINGPERFORMED BY: PRATIMA [facility] Uluvgi7281 [facility] [id number] Information: [id number] Comprehensive (40382) ALT (SGPT) 23 [iU]/L (Normal) Range: 0-40 AST (SGOT) 27 [iU]/L (Normal) Range: 0-40 Alkaline Phosphatase, S 60 [iU]/L (Normal) Range: 25-165 Bilirubin, Total 0.4 mg/dL (Normal) Range: 0.0-1.2 A/G Ratio 2.1 (Normal) Range: 1.1-2.5 Globulin, Total 2.1 g/dL (Normal) Range: 1.5-4.5 Albumin, Serum 4.4 g/dL (Normal) Range: 3.6-4.8 Protein, Total, Serum 6.5 g/dL (Normal) Range: 6.0-8.5 Calcium, Serum 9.9 mg/dL (Normal) Range: 8.6-10.2 Carbon Dioxide, Total 27 mmol/L (Normal) Range: 20-32 Chloride, Serum 103 mmol/L (Normal) Range: 97-108 Potassium, Serum 4.2 mmol/L (Normal) Range: 3.5-5.2 Sodium, Serum 143 mmol/L (Normal) Range: 135-145 BUN/Creatinine Ratio 17 (Normal) Range: 11-26 eGFR If Africn Am 36 mL/min/1.73 (Abnormal) Comments: Note: A persistent eGFR <60 mL/min/1.73 m2 (3 months or more) mayindicate chronic kidney disease. An eGFR >59 mL/min/1.73 m2 with anelevated urine protein also may indicate chronic kidney disease.Calculated using CKD-EPI formula. eGFR If NonAfricn Am 31 mL/min/1.73 (Abnormal) Creatinine, Serum 1.76 mg/dL (Abnormal) Range: 0.57-1.00 BUN 30 mg/dL (Abnormal) Range: 8-27 Glucose, Serum 94 mg/dL (Normal) Range: 65-99 03-Xfl-497011:06 Metabolic Panel, Comments: PATIENT NOT FASTINGPERFORMED BY: [employer] Odnmyp5942 [facility] [id number] Information: [id number] Comprehensive (52656) ALT (SGPT) 30 [iU]/L (Normal) Range: 0-40 AST (SGOT) 33 [iU]/L (Normal) Range: 0-40 Alkaline Phosphatase, S 67 [iU]/L (Normal) Range: 25-165 Bilirubin, Total 0.5 mg/dL (Normal) Range: 0.0-1.2 A/G Ratio 1.9 (Normal) Range: 1.1-2.5 Globulin, Total 2.4 g/dL (Normal) Range: 1.5-4.5 Albumin, Serum 4.6 g/dL (Normal) Range: 3.6-4.8 Protein, Total, Serum 7.0 g/dL (Normal) Range: 6.0-8.5 Calcium, Serum 10.5 mg/dL (Abnormal) Range: 8.6-10.2 Carbon Dioxide, Total 26 mmol/L (Normal) Range: 20-32 Chloride, Serum 102 mmol/L (Normal) Range: 97-108 Potassium, Serum 4.3 mmol/L (Normal) Range: 3.5-5.2 Sodium, Serum 143 mmol/L (Normal) Range: 135-145 BUN/Creatinine Ratio 18 (Normal) Range: 11-26 eGFR If Africn Am 36 mL/min/1.73 (Abnormal) Comments: Note: A persistent eGFR <60 mL/min/1.73 m2 (3 months or more) mayindicate chronic kidney disease. An eGFR >59 mL/min/1.73 m2 with anelevated urine protein also may indicate chronic kidney disease.Calculated using CKD-EPI formula. eGFR If NonAfricn Am 31 mL/min/1.73 (Abnormal) Creatinine, Serum 1.75 mg/dL (Abnormal) Range: 0.57-1.00 BUN 31 mg/dL (Abnormal) Range: 8-27 Glucose, Serum 92 mg/dL (Normal) Range: 65-99 :17 METABOLIC PANEL, Comments: PATIENT WAS FASTINGPERFORMED BY: [employer]6370 [facility] [id number] Information: [id number] COMPREHENSIVE (46851) ALT (SGPT) 27 [iU]/L (Normal) Range: 0-40 AST (SGOT) 31 [iU]/L (Normal) Range: 0-40 Alkaline Phosphatase, S 70 [iU]/L (Normal) Range: 25-165 Bilirubin, Total 0.5 mg/dL (Normal) Range: 0.0-1.2 A/G Ratio 1.8 (Normal) Range: 1.1-2.5 Albumin, Serum 4.4 g/dL (Normal) Range: 3.6-4.8 Globulin, Total 2.5 g/dL (Normal) Range: 1.5-4.5 Protein, Total, Serum 6.9 g/dL (Normal) Range: 6.0-8.5 Calcium, Serum 10.0 mg/dL (Normal) Range: 8.6-10.2 Carbon Dioxide, Total 26 mmol/L (Normal) Range: 20-32 Chloride, Serum 103 mmol/L (Normal) Range: 97-108 Potassium, Serum 3.5 mmol/L (Normal) Range: 3.5-5.2 Sodium, Serum 144 mmol/L (Normal) Range: 135-145 BUN/Creatinine Ratio 18 (Normal) Range: 11-26 eGFR If Africn Am 36 mL/min/1.73 (Abnormal) Comments: Note: A persistent eGFR <60 mL/min/1.73 m2 (3 months or more) mayindicate chronic kidney disease. An eGFR >59 mL/min/1.73 m2 with anelevated urine protein also may indicate chronic kidney disease.Calculated using CKD-EPI formula. eGFR If NonAfricn Am 31 mL/min/1.73 (Abnormal) Creatinine, Serum 1.74 mg/dL (Abnormal) Range: 0.57-1.00 BUN 31 mg/dL (Abnormal) Range: 8-27 Glucose, Serum 85 mg/dL (Normal) Range: 65-99 09-Jlw-37199:17 LIPID PANEL (09030) Comments: PATIENT WAS FASTINGPERFORMED BY: [facility]CoR[facility] HealthCareWknnkm0966 [facility] [id number] LDL/HDL Ratio 1.1 {ratio_units} (Normal) Range: 0.0-3.2 LDL Cholesterol Calc 46 mg/dL (Normal) Range: 0-99 VLDL Cholesterol Yamilka 28 mg/dL (Normal) Range: 5-40 HDL Cholesterol 41 mg/dL (Normal) Comments: According to ATP-III Guidelines, HDL-C >59 mg/dL is considered anegative risk factor for CHD. Triglycerides 140 mg/dL (Normal) Range: 0-149 Cholesterol, Total 115 mg/dL (Normal) Range: 100-199 :38 Blood Glucose , Office (58561) Blood Glucose , Office 132 (Normal) :38 HgA1C , Office (79341) HgA1C , Office 5.7 % (Normal) Range: 4.6 - 7.1 67-Wnh-345257:01 BILAT SCRN DIGITAL & CAD Radiology Report See Note (Normal) Comments: MAMMOGRAPHY - BILATERAL SCREENING REASON FOR EXAM: Female, 60 years old. Routine annual screeningexamination. PERTINENT HISTORY: Non-contributory. Patient complains of right upperquad rant tendern ess. TECHNIQUE: Digital examination. Mediolateral oblique (MLO) andcraniocaudad (CC) views of both breasts were obtained. CAD: CAD wasperformed on this study. COMPARISON: Comparison is made with e outside study dated October. FINDINGS:The breast composition is almost entirely fatty replaced. There are no masses or suspicious microcalcifications. No other significant abnormalities are id entified. There has been nosignificant change since the prior study. IMPRESSION:Normal bilateral screening mammogram. One year follow-up recommended. (A) ASSESSMENT CATEGORY:BIRADS Category 2: Benign finding(s). A letter regarding these resultswill be sent to the patient by the facility within 30 days. Approximately 10% of breast cancers are not detected by mammography. Anormal mammogram should n ot delay biopsy of a clinically suspiciousabnormality. Dictated on 05/22/11 0916 by Jonn Larios MDranscribed on 05/26/11 1050 by ITS IMPORTSign by Anam Larios MD on 05/26/11 1051 S ign by: Anam Larios MD 55-Wxb-103588:01 DEXA BONE DENSITY STUDY (HP) Radiology Report See Note (Normal) Comments: PROCEDURE: DUAL ENERGY X-RAY ABSORPTIOMETRY / DEXA. REASON FOR EXAM: Female, 60 years old. The patient is postmenopausal. TECHNIQUE: Bone Mineral Density (BMD) measurements of lumbar s pine andbila teral hips were obtained. COMPARISON: None. FINDINGS: Lumbar Spine (L1-L4): g/cm2 (1.126) / T-score (-0.4) / Z-score (0.3)Left Femur Total: g/cm2 (1.003) / T-score (0.0) / Z-score (0.5)Right Femur Total: g/cm2 (0.963) / T-score (-0.4) / Z-score (0.2) IMPRESSION:The patient is considered normal, as outlined below according to WorldHealth Organization (WHO) criteria. Fracture risk is l ow. Reference Information:The T-score is the number of standard deviations above or below thestandard which is normal for young adults at their peak bone mineraldensity. The World Health Organization (W HO) interprets the T-scores asfollows: Above -1 Normal bone densityBetween -1 and -2.5 OsteopeniaEqual to / or below -2.5 Osteoporosis As a practical clinical guideline, osteopenia may be graded as follows:Mild -1 through -1.5Moderate -1.6 through -2.0Severe - 2.1 through -2.4 The Z-score is the number of standard deviations above or below age-matchedcontrols. A Z-score of less than -1 .5 would be considered abnormal. References:1. NIH Osteoporosis and Related Bone Diseases http://www.osteo.org2. International Society for Clinical Densitometry http://www.iscd.org3. National Osteopo rosis Foundation http://www.nof.org Dictated on 05/22/11 1030 by Jonn Larios MDranscribed on 05/22/11 1335 by ITS IMPORTSign by Anam Larios MD on 05/22/11 1336 Sign by: Anam Larios MD :53 FECAL OCCULT HGB ASSAY- tubes sent home (88814) FECAL OCCULT HGB ASSAY, QUAL, 1-3 SIMULTANEOU negative (Normal) :32 HgA1C , Office (95481) HgA1C , Office 8.6 % (Abnormal) Range: 4.6 - 7.1 :32 Blood Glucose , Office (32414) Blood Glucose , Office 324 (Normal) :30 CBCD,SMEAR DIFF PLT EST SeeNote (Normal) Comments: Result: ADEQUATE RED CELL MORPH SeeNote {NORMAL} (Normal) Comments: Result: NORM C+C EOS 4 % (Normal) Range: 0-5 LYMPH 17 % (Abnormal) Range: 19-41 MONOCYTE 3 % (Normal) Range: 0-10 BAND 1 % (Normal) Range: 0-5 SEGS 75 % (Abnormal) Range: 47-70 CELLS COUNTED 100 (Normal) ABSOLUTE NEUT 5.7 3/uL (Normal) Range: 2.0-7.7 PLT 272 K/mm3 (Normal) Range: 150-450 RDW 15.9 % (Abnormal) Range: 11.6-14.6 MCHC 34.5 g/dL (Normal) Range: 32-36 MCH 31.4 pg (Normal) Range: 27.0-32.0 MCV 90.8 fL (Normal) Range: 81-99 HCT 36.2 % (Abnormal) Range: 37-47 HGB 12.5 g/dL (Normal) Range: 12.0-16.0 RBC 3.99 {M/mm3} (Abnormal) Range: 4.2-5.4 WBC 7.6 K/mm3 (Normal) Range: 4.4-11.0 :30 COMP METABOLIC GAP 10 (Normal) Range: 5-15 CO2 30.0 mmol/L (Normal) Range: 21.0-32.0 CL 99 mmol/L (Normal) Range: 98-107 K 3.0 mmol/L (Abnormal) Range: 3.5-5.1 NA 139 mmol/L (Normal) Range: 136-145 T BILI 0.60 mg/dL (Normal) Range: 0.00-1.00 ALK P 117 U/L (Normal) Range: 50-136 ALT 56 U/L (Normal) Range: 12-78 AST 34 U/L (Normal) Range: 15-37 CA 8.8 mg/dL (Normal) Range: 8.5-10.1 A/G 1.1 {RATIO} (Normal) Range: 0.9-2.4 ALB 3.4 g/dL (Normal) Range: 3.4-5.0 GLOB 3.2 g/dL (Normal) Range: 2.7-4.2 BUN/CRE 14.4 {RATIO} (Normal) Range: 10-20 T PROT 6.6 g/dL (Normal) Range: 6.4-8.2 EST GFR 68 mL/min (Normal) EST GFR - AA 82 mL/min (Normal) CREAT,SERUM 0.9 mg/dL (Normal) Range: 0.6-1.0 BUN 13 mg/dL (Normal) Range: 7-18 GLU 200 mg/dL (Abnormal) Range: 70-110 Comments: Glucose result greater than or equal to 200 mg/dLsuggests DIABETES MELLITUS per A.D.A. criteria. :30 COMPLETE UA MUCUS, URINE 0 SEEN {/hpf} (Normal) BACTERIA 0 SEEN {/hpf} (Normal) SQUAM EPI 0 SEEN {/hpf} (Normal) Range: 5-10 RBC-UA SeeNote {/hpf} (Normal) Range: 0-5 Comments: Result: 0-5 SEEN WBC 0 SEEN {/hpf} (Normal) Range: 0-5 LEUK ESTERASE SeeNote (Normal) Comments: Result: NEGATIVE NITRITE UR SeeNote (Normal) Comments: Result: NEGATIVE OCCULT BLOOD-UR SeeNote (Normal) Comments: Result: NEGATIVE PROT DIPSTX SeeNote (Normal) Comments: Result: NEGATIVE UROBILI 0.2 EU/dl (Normal) Range: 0.2 - 1.0 pH UR 7.0 (Normal) Range: 5.0-8.0 KETONE UR SeeNote mg/dL (Normal) Comments: Result: NEGATIVE SP.GR. DIPSTX 1.015 (Normal) Range: 1.002-1.030 BILIRUBIN URINE SeeNote (Normal) Comments: Result: NEGATIVE GLUCOSE, UR SeeNote (Normal) Comments: Result: NEGATIVE CLARITY CLEAR (Normal) COLOR YELLOW (Normal) :30 LIPID VLDL 71 mg/dL (Abnormal) Range: 5-40 LDL 19 mg/dL (Normal) Range: 0-130 HDL 29 mg/dL (Abnormal) Comments: Reference Range HDL <40 mg/dL Low HDL Cholesterol HDL >or= 60 mg/dL High HDL Cholesterol TRIG 355 mg/dL (Abnormal) Comments: Serum Triglycerides Reference Interval Normal <150 mg/dL Borderline high 150 - 199 mg/dL High 200 - 499 mg/dL Very High > or = 500 mg/dL CHOL 119 mg/dL (Normal) Comments: <200 mg/dL Desirable 200-240 mg/dL Borderline >240 mg/dL High Risk :30 MICROALB:CRE UR MALB:CREAT 11.4 {mg/g_CRE} (Normal) MICROALBUMIN,UR 12.5 mg/L (Normal) UR CREAT 108.7 mg/dL (Normal) :30 TSH 2.79 {uIU/mL} (Normal) Range: 0.358-3.74 :45 CULTURE, SPUTUM (57441) Comments: PATIENT NOT FASTINGPERFORMED BY: [facility]6370 [facility] [id number] Information: SRC:[facility] [id number] Result 1 RRF (Normal) Comments: Routine respiratory hermelindo Lower Respiratory Culture Final report (Normal) :48 HgA1C , Office (67651) HgA1C , Office 5.8 % (Normal) Range: 4.6 - 7.1 :48 Blood Glucose , Office (45092) Blood Glucose , Office 124 (Normal) :20 CHEST WITH CONTRAST Radiology Report See Note (Normal) Comments: Exam Number: [id number] CLINICAL:Sarcoidosis, shortness of breath, wheezing CT CHEST WITH CONTRAST TECHNIQUE:High resolution transaxial imaging was performed followingintravenous administration of 100ml of Isovue 300 contrast material.Multiplanar coronal and sagittal images were reformatted. COMPARISON:October 18, 2008. FINDINGS:Normal visualized trachea and bronchi. The lungs are well expanded. There is minimal scattered linear scarring. In the anterior segmentof the right upper lobe(axial 42/sagittal 43), there is a 2cm focalscar like density, unchanged from the previous study. There is noacute infiltrate or cavitary TB. Normal pleura. There are no pleural effusions. Normal heart and pericardium. Normal enhancement of the pulmonary arteries. There are nodemonstrated pulmonary emboli. Normal thoracic aorta and visualized great vessels. There are small calcified prevascular and paratracheal nodes, andbilateral small hilar calcified nodes, all unchanged. Normal chest wall structures. Normal osseous structures.Thoracolumbar scoliosis, degenerative changes. Normal visualized upper abdomen. The gallbladder is not identified.Previous cholecystectomy? IMPRESSION:No acute cardiopulmonary proces s. Pulmonary scarring, calcified hilar and mediastinal nodes, allunchanged. Previous cholecystectomy? Reported By: PO MANCILLA 35-Csv-35355:15 SERUM CRE & GFR EST GFR - AA 65 mL/min (Normal) EST GFR 54 mL/min (Abnormal) CREAT,SERUM 1.1 mg/dL (Abnormal) Range: 0.6-1.0 10-Mqc-736799:42 CHEST, PA AND LATERAL (MT) Radiology Report See Note (Normal) Comments: Exam Number: [id number] CHEST X- RAY PA AND LATERAL VIEWS HISTORY:Pneumonitis due to food inhalation/aspiration. FINDINGS:PA and lateral views of the chest compared to previous chest x-rayexam ination of O ct2008. There is moderate-degree ofdextroscoliotic curvature thoracolumbar spine. Mild cardiomegaly.No definite evidence of focal pulmonary infiltrates or effusions arenoted. No significant interval change from previous exam. Nopneumothorax. IMPRESSION:1. No acute pulmonary findings. No significant interval changesfrom previous chest x-ray examination of September 28, 2009. Mildcardiomeg zunilda. There is moderate dextroscoliotic curvature. Reported By: Joseph Núñez 55-Gjd-662011:15 MAGNESIUM (14386) Comments: PATIENT NOT FASTINGPERFORMED BY: [employer] SolutionsNov[facility] Health [facility] [id number] Magnesium, Serum 2.1 mg/dL (Normal) Range: 1.6-2.6 77-Ult-383546:15 Renal function Panel Comments: PATIENT NOT FASTINGPERFORMED BY: [employer]6370 [facility] [id number] Information: [id number] (80444) Albumin, Serum 4.7 g/dL (Normal) Range: 3.5-5.5 Calcium, Serum 9.9 mg/dL (Normal) Range: 8.7-10.2 Phosphorus, Serum 2.5 mg/dL (Normal) Range: 2.5-4.5 Carbon Dioxide, Total 23 mmol/L (Normal) Range: 20-32 Chloride, Serum 103 mmol/L (Normal) Range: 97-108 Potassium, Serum 4.0 mmol/L (Normal) Range: 3.5-5.2 BUN/Creatinine Ratio 21 (Normal) Range: 8-27 eGFR AfricanAmerican 54 mL/min/1.73 Comments: Note: Persistent reduction for 3 months or more in an eGFR<60 mL/min/1.73 m2 defines CKD. Patients with eGFR values>/=60 mL/min/1.73 m2 may also have CKD if evidence of persistentproteinur ia is (Abnormal) present. Additional information may be found atwww.kdoqi.org. Sodium, Serum 145 mmol/L (Normal) Range: 135-145 Creatinine, Serum 1.23 mg/dL (Abnormal) Range: 0.57-1.00 eGFR 45 mL/min/1.73 (Abnormal) BUN 26 mg/dL (Normal) Range: 5-26 Glucose, Serum 123 mg/dL (Abnormal) Range: 65-99 :46 HgA1C , Office (22001) HgA1C , Office 6.0 % (Normal) Range: 4.6 - 7.1 :46 Blood Glucose , Office (09611) Blood Glucose , Office 140 (Normal) :27 CBCD,SMEAR DIFF EOS 1 % (Normal) Range: 0-5 PLT EST SeeNote (Normal) Comments: Result: ADEQUATE RED CELL MORPH SeeNote {NORMAL} (Normal) Comments: Result: NORM C+C LYMPH 9 % (Abnormal) Range: 19-41 MONOCYTE 3 % (Normal) Range: 0-10 SEGS 87 % (Abnormal) Range: 47-70 ABSOLUTE NEUT 8.9 3/uL (Abnormal) Range: 2.0-7.7 CELLS COUNTED 100 (Normal) HCT 34.8 % (Abnormal) Range: 37-47 HGB 12.0 g/dL (Normal) Range: 12.0-16.0 MCH 33.0 pg (Abnormal) Range: 27.0-32.0 MCHC 34.4 g/dL (Normal) Range: 32-36 MCV 96.1 fL (Normal) Range: 81-99 PLT 356 K/mm3 (Normal) Range: 150-450 RBC 3.63 {M/mm3} (Abnormal) Range: 4.2-5.4 RDW 15.3 % (Abnormal) Range: 11.6-14.6 WBC 10.3 K/mm3 (Normal) Range: 4.4-11.0 :27 LIVER D BILI 0.15 mg/dL (Normal) Range: 0.00-0.30 ALB 4.1 g/dL (Normal) Range: 3.4-5.0 ALK P 97 U/L (Normal) Range: 50-136 ALT 26 U/L (Normal) Range: 12-78 AST 19 U/L (Normal) Range: 15-37 T BILI 0.40 mg/dL (Normal) Range: 0.00-1.00 T PROT 7.8 g/dL (Normal) Range: 6.4-8.2 26-Ylr-600985:11 CBC with manual diff Comments: PATIENT NOT FASTINGPERFORMED BY: LabCoRut[facility] - University Behavioral HealthCareErhgrw9740 [facility] [id number] Information: [id number] (28133) Baso (Absolute) 0.0 {x10E3/uL} (Normal) Range: 0.0-0.2 Eos (Absolute) 0.3 {x10E3/uL} (Normal) Range: 0.0-0.4 Lymphs (Absolute) 1.2 {x10E3/uL} (Normal) Range: 0.7-4.5 Monocytes(Absolute) 0.5 {x10E3/uL} (Normal) Range: 0.1-1.0 Basos 0 % (Normal) Range: 0-3 Eos 3 % (Normal) Range: 0-7 Monocytes 6 % (Normal) Range: 4-13 Neutrophils (Absolute) 7.0 {x10E3/uL} (Normal) Range: 1.8-7.8 Lymphs 13 % (Abnormal) Range: 14-46 Neutrophils 78 % (Abnormal) Range: 40-74 Platelets 375 {x10E3/uL} (Normal) Range: 140-415 Hematocrit 35.8 % (Normal) Range: 34.0-44.0 Hemoglobin 12.0 g/dL (Normal) Range: 11.5-15.0 MCH 32.3 pg (Normal) Range: 27.0-34.0 MCHC 33.5 g/dL (Normal) Range: 32.0-36.0 MCV 97 fL (Normal) Range: 80-98 RDW 16.3 % (Abnormal) Range: 11.7-15.0 RBC 3.70 {x10E6/uL} (Abnormal) Range: 3.80-5.10 WBC 9.0 {x10E3/uL} (Normal) Range: 4.0-10.5 61-Niq-896838:55 Microscopic Examination Comments: PATIENT WAS FASTINGPERFORMED BY: S7 [employer] [facility] [id number] BY: [employer] ViralGainsDoctors Hospital of [facility] [id number] Bacteria Few (Normal) Cast Type Hyaline casts (Normal) Mucus Threads Present (Normal) Casts Present {/lpf} (Abnormal) Epithelial Cells (non renal) 0-10 {/hpf} (Normal) Range: 0 - 10 RBC 0-3 {/hpf} (Normal) Range: 0 - 3 WBC 0-5 {/hpf} (Normal) Range: 0 - 5 81-Ewl-590574:34 HgA1C , Office (14907) HgA1C , Office 5.9 % (Normal) Range: 4.6 - 7.1 84-Zvv-126683:34 Blood Glucose , Office (46412) Blood Glucose , Office 140 (Normal) 33-Uci-226570:55 TSH (13109) Comments: PATIENT WAS FASTINGPERFORMED BY: S7 [employer]2500 [facility] [id number] BY: [employer] TherapeuticsRutgers - University Behavioral HealthCareLxgwan4825 [facility] [id number] TSH 0.541 {uIU/mL} (Normal) Range: 0.450-4.500 Comments: Effective December 24, 2009, TSH reference interval for11 - 19 years will be changing to: 0.450 - 4.500 uIU/mLReference interval for all other ages will NOT be affected. :55 URINALYSIS, W/ MICRO Comments: PATIENT WAS FASTINGPERFORMED BY: [facility] HospitalEnergate[address] [id number] BY: [employer] [facility] [id number] (82229) Bilirubin Negative (Normal) Microscopic Examination MICRON (Normal) Comments: Microscopic follows if indicated. Microscopic Examination See below: (Normal) Nitrite, Urine Negative (Normal) Occult Blood Negative (Normal) Urobilinogen,Semi-Qn 0.2 mg/dL (Normal) Range: 0.0-1.9 Glucose Negative (Normal) Ketones Negative (Normal) Protein Negative (Normal) WBC Esterase Negative (Normal) Appearance Clear (Normal) pH 6.0 (Normal) Range: 5.0-7.5 Specific Preston 1.020 (Normal) Range: 1.005-1.030 Urine-Color Yellow (Normal) :55 MICROALBUMIN: CREATININE Comments: PATIENT WAS FASTINGPERFORMED BY: [employer] [id number] BY: [employer]pen[employer] TherapeuticsGerald Champion Regional Medical CenterUkwadz2235 [facility] [id number] RATIO (27316) AND (28618) Microalb/Creat Ratio 7.1 {mg/g_creat} (Normal) Range: 0.0-30.0 Microalbumin, Urine 8.6 ug/mL (Normal) Range: 0.0-17.0 Creatinine, Urine 120.9 mg/dL (Normal) Range: 15.0-278.0 :55 METABOLIC PANEL, Comments: PATIENT WAS FASTINGPERFORMED BY: [email or web address] [address] [id number] BY: [facility] HospitalForemostSamuel Ville [id number] [facility] [id number] COMPREHENSIVE (34868) ALT (SGPT) 24 [iU]/L (Normal) Range: 0-40 A/G Ratio 1.6 (Normal) Range: 1.1-2.5 Alkaline Phosphatase, S 102 [iU]/L (Normal) Range: 25-150 AST (SGOT) 38 [iU]/L (Normal) Range: 0-40 Bilirubin, Total 0.3 mg/dL (Normal) Range: 0.1-1.2 Globulin, Total 2.9 g/dL (Normal) Range: 1.5-4.5 Albumin, Serum 4.7 g/dL (Normal) Range: 3.5-5.5 Calcium, Serum 10.2 mg/dL (Normal) Range: 8.7-10.2 Carbon Dioxide, Total 25 mmol/L (Normal) Range: 20-32 Chloride, Serum 100 mmol/L (Normal) Range: 97-108 Protein, Total, Serum 7.6 g/dL (Normal) Range: 6.0-8.5 BUN/Creatinine Ratio 27 (Normal) Range: 8-27 eGFR 44 mL/min/1.73 (Abnormal) eGFR AfricanAmerican 54 mL/min/1.73 Comments: Note: Persistent reduction for 3 months or more in an eGFR<60 mL/min/1.73 m2 defines CKD. Patients with eGFR values>/=60 mL/min/1.73 m2 may also have CKD if evidence of persistentproteinur ia is (Abnormal) present. Additional information may be found atwww.kdoqi.org. Potassium, Serum 4.4 mmol/L (Normal) Range: 3.5-5.2 Sodium, Serum 142 mmol/L (Normal) Range: 135-145 BUN 33 mg/dL (Abnormal) Range: 5-26 Creatinine, Serum 1.24 mg/dL (Abnormal) Range: 0.57-1.00 Glucose, Serum 105 mg/dL (Abnormal) Range: 65-99 50-Lap-929032:55 LIPOPROTEIN, BLD, BY NMR Comments: PATIENT WAS FASTINGPERFORMED BY: Sarah [email or web address] Ecb0275 Lavelle ZambranoRutherford Regional Health System [id number] BY: PRATIMA LabM[facility]6370 [facility] [id number] Information: [id number] (94340) Large VLDL-P 2.9 nmol/L (Abnormal) Comments: Small LDL-P, LDL Particle Size, Large HDL-P and Large VLDL-Phave been validated by [employer] but not cleared by US FDA;the clinical utility of these test results has not been fully establi shed. Patient Goals SPRCS (Normal) Comments: High Risk: LDL-P <1000Secondary goal: Small LDL-P <527Moderately High-Risk: LDL-P <1300Secondary goal: Small LDL-P <527 HDL-C 30 mg/dL (Abnormal) Large HDL-P < 0.7 umol/L (Abnormal) LDL Particle Size 19.9 nm (Abnormal) Comments: .Small (Pattern B) 18.0 - 20.5Large (Pattern A) 20.6 - 23.0. LDL-C 94 mg/dL (Normal) Comments: .Optimal < 100Above optimal 100 - 129Borderline 130 - 159High 160 - 189Very high > 189. Triglycerides 113 mg/dL (Normal) Cholesterol, Total 147 mg/dL (Normal) Small LDL-P 1101 nmol/L (Abnormal) Comments: .Low < 117Moderate 117 - 526Borderline 527 - 839High > 839. LDL-P 1479 nmol/L (Abnormal) Comments: .Optimal < 1000Above optimal 1000 - 1299Borderline 1300 - 1599High 1600 - 2000Very high > 2000. [id number] CBC WITH MANUAL DIFF Comments: PATIENT WAS FASTINGPERFORMED BY: Sarah LipoScience [id number] [facility] [id number] BY: PRATIMA LabCoR[facility] HealthCareCpmocf2950 [facility] [id number] ([id number]) Baso (Absolute) 0.0 {x10E3/uL} (Normal) Range: 0.0-0.2 Eos (Absolute) 0.0 {x10E3/uL} (Normal) Range: 0.0-0.4 Hematology Comments: Note: (Normal) Comments: Verified by microscopic examination. Lymphs (Absolute) 1.0 {x10E3/uL} (Normal) Range: 0.7-4.5 Monocytes(Absolute) 1.0 {x10E3/uL} (Normal) Range: 0.1-1.0 Basos 0 % (Normal) Range: 0-3 Eos 0 % (Normal) Range: 0-7 Neutrophils (Absolute) 17.7 {x10E3/uL} (Abnormal) Range: 1.8-7.8 Lymphs 5 % (Abnormal) Range: 14-46 Monocytes 5 % (Normal) Range: 4-13 Neutrophils 90 % (Abnormal) Range: 40-74 MCHC 34.0 g/dL (Normal) Range: 32.0-36.0 Platelets 484 {x10E3/uL} (Abnormal) Range: 140-415 Comments: Platelets appear clumped. RDW 16.0 % (Abnormal) Range: 11.7-15.0 Hematocrit 33.8 % (Abnormal) Range: 34.0-44.0 Hemoglobin 11.5 g/dL (Normal) Range: 11.5-15.0 MCH 33.0 pg (Normal) Range: 27.0-34.0 MCV 97 fL (Normal) Range: 80-98 RBC 3.48 {x10E6/uL} (Abnormal) Range: 3.80-5.10 WBC 19.7 {x10E3/uL} (Abnormal) Range: 4.0-10.5 Plan of Care Name Dates Details Instructions Acute gout involving toe of right foot, unspecified cause : Reviewed Lab Indication: Acute gout involving toe of right foot, unspecified cause BMI 38.0-38.9,adult : Eprescribed prescriptions (G8553) Indication: BMI 38.0-38.9,adult Chronic kidney disease, stage III (moderate) : Follow up in 1 week Indication: Chronic kidney disease, stage III (moderate) Acute gout involving toe of right foot, unspecified cause : Gout: gout Indication: Acute gout involving toe of right foot, unspecified cause BMI 38.0-38.9,adult : Eprescribed prescriptions (G8553) Indication: BMI 38.0-38.9,adult GERD (gastroesophageal reflux disease) : GERD Education Indication: GERD (gastroesophageal reflux disease) Hypercholesteremia : Cholesterol mgmt Indication: Hypercholesteremia CHRONIC KIDNEY DISEASE, STAGE IV (SEVERE) : Reviewed [employer] Letter Indication: CHRONIC KIDNEY DISEASE, STAGE IV (SEVERE) Diabetic autonomic neuropathy associated with type 2 diabetes mellitus : Follow up in 3 months Indication: Diabetic autonomic neuropathy associated with type 2 diabetes mellitus Chronic kidney disease, stage III (moderate) : Reviewed [employer] Letter Indication: Chronic kidney disease, stage III (moderate) BMI 39.0-39.9,adult : Eprescribed prescriptions (G8553) Indication: BMI 39.0-39.9,adult Sinus headache : Follow up if no improvement or if symptoms worsen Indication: Sinus headache Sinusitis, bacterial : Sinusitis *: sinus infection Indication: Sinusitis, bacterial Nonsmoker : Eprescribed prescriptions (G8553) Indication: Nonsmoker Encounter for screening for malignant neoplasm of colon (Renamed from Special screening for malignant neoplasms, colon) : *Colon Cancer Screening Indication: Encounter for screening for malignant neoplasm of colon (Renamed from Special screening for malignant neoplasms, colon) Annual Medicare Phyiscal WITHOUT abnormal findings (Renamed from Encounter for general adult medical examination without abnormal findings) : fall reduction handout Indication: Annual Medicare Phyiscal WITHOUT abnormal findings (Renamed from Encounter for general adult medical examination without abnormal findings) Annual Medicare Phyiscal WITHOUT abnormal findings (Renamed from Encounter for general adult medical examination without abnormal findings) : elderly packet given Indication: Annual Medicare Phyiscal WITHOUT abnormal findings (Renamed from Encounter for general adult medical examination without abnormal findings) Annual Medicare Phyiscal WITHOUT abnormal findings (Renamed from Encounter for general adult medical examination without abnormal findings) : advance planning information Indication: Annual Medicare Phyiscal WITHOUT abnormal findings (Renamed from Encounter for general adult medical examination without abnormal findings) Annual Medicare Phyiscal WITHOUT abnormal findings (Renamed from Encounter for general adult medical examination without abnormal findings) : *Weight Loss Discussion Indication: Annual Medicare Phyiscal WITHOUT abnormal findings (Renamed from Encounter for general adult medical examination without abnormal findings) Diabetic autonomic neuropathy associated with type 2 diabetes mellitus : Follow up in 3 months Indication: Diabetic autonomic neuropathy associated with type 2 diabetes mellitus Hypertension with renal disease : Diet, Exercise, and Wt loss Indication: Hypertension with renal disease Hypertension with renal disease : HTN/CAD Red Flags Indication: Hypertension with renal disease Hypercholesteremia : Cholesterol mgmt Indication: Hypercholesteremia DM (diabetes mellitus), type 1, uncontrolled, with renal complications : Continue Current Prescription(s) Indication: DM (diabetes mellitus), type 1, uncontrolled, with renal complications Nonsmoker : Eprescribed prescriptions (G8553) Indication: Nonsmoker DM (diabetes mellitus), type 1, uncontrolled, with renal complications : *Diabetes Education Indication: DM (diabetes mellitus), type 1, uncontrolled, with renal complications DM (diabetes mellitus), type 1, uncontrolled, with renal complications : Follow up in 4 weeks-- do HAIC : pt needs to see if good for surgery Indication: DM (diabetes mellitus), type 1, uncontrolled, with renal complications DM (diabetes mellitus), type 1, uncontrolled, with renal complications : Diet, Exercise, and Wt loss Indication: DM (diabetes mellitus), type 1, uncontrolled, with renal complications DM (diabetes mellitus), type 1, uncontrolled, with renal complications : *Diabetes Education Indication: DM (diabetes mellitus), type 1, uncontrolled, with renal complications Aspiration of food, sequela : Reviewed Diagnostic Tests Indication: Aspiration of food, sequela Aspiration of food, sequela : Reviewed [employer] Letter- sibila and bronch Indication: Aspiration of food, sequela Hypertension, benign : BP MONITORING - SELF Indication: Hypertension, benign Hypertension, benign : Continue Current Prescription(s) Indication: Hypertension, benign Acute gout involving toe of right foot, unspecified cause : Solu Medrol Injection/ Education Indication: Acute gout involving toe of right foot, unspecified cause DM (diabetes mellitus), type 1, uncontrolled, with renal complications : Follow up in 2 weeks Indication: DM (diabetes mellitus), type 1, uncontrolled, with renal complications DM (diabetes mellitus), type 1, uncontrolled, with renal complications : Follow up in 3 months Indication: DM (diabetes mellitus), type 1, uncontrolled, with renal complications GERD (gastroesophageal reflux disease) : GERD Education Indication: GERD (gastroesophageal reflux disease) Nausea and vomiting in adult : Nausea and Vomiting: bland foods Indication: Nausea and vomiting in adult Pneumonia : Pneumonia *: lung infection Indication: Pneumonia Nonsmoker : Eprescribed prescriptions (G8553) Indication: Nonsmoker Unspecified asthma with (acute) exacerbation : Solu Medrol Injection/ Education Indication: Unspecified asthma with (acute) exacerbation Unspecified asthma with (acute) exacerbation : Follow up if no improvement or if symptoms worsen Indication: Unspecified asthma with (acute) exacerbation Elevated blood pressure reading : HTN and Decongestants Indication: Elevated blood pressure reading Nonsmoker : Eprescribed prescriptions (G8553) Indication: Nonsmoker Hypertension, benign : Diet, Exercise, and Wt loss Indication: Hypertension, benign Hypertension, benign : HTN/CAD Red Flags Indication: Hypertension, benign Hypercholesteremia : Cholesterol mgmt Indication: Hypercholesteremia CHRONIC KIDNEY DISEASE, STAGE IV (SEVERE) : Reviewed Lab Indication: CHRONIC KIDNEY DISEASE, STAGE IV (SEVERE) Bronchitis : Continue Current Prescription(s) Indication: Bronchitis Chest tightness : Solu Medrol Injection/ Education Indication: Chest tightness Bronchitis : *Antibiotic Usage Education - Female Indication: Bronchitis Unspecified asthma with (acute) exacerbation : Solu Medrol Injection/ Education Indication: Unspecified asthma with (acute) exacerbation Sarcoidosis : Reviewed Diagnostic Tests Indication: Sarcoidosis Sarcoidosis : Reviewed [employer] Letter Indication: Sarcoidosis DM (diabetes mellitus), type 1, uncontrolled, with renal complications : Follow up in 3 months Indication: DM (diabetes mellitus), type 1, uncontrolled, with renal complications DM (diabetes mellitus), type 1, uncontrolled, with renal complications : Reviewed Lab Indication: DM (diabetes mellitus), type 1, uncontrolled, with renal complications Asthma : Continue Current Prescription(s) Indication: Asthma Asthma : Reviewed [employer] Letter Indication: Asthma CHRONIC KIDNEY DISEASE, STAGE IV (SEVERE) : Reviewed [employer] Letter Indication: CHRONIC KIDNEY DISEASE, STAGE IV (SEVERE) CHRONIC KIDNEY DISEASE, STAGE IV (SEVERE) : Continue Current Prescription(s) Indication: CHRONIC KIDNEY DISEASE, STAGE IV (SEVERE) Gout : Continue Current Prescription(s) Indication: Gout Hypertension with renal disease : Diet, Exercise, and Wt loss Indication: Hypertension with renal disease Hypertension with renal disease : HTN/CAD Red Flags Indication: Hypertension with renal disease Hypercholesteremia : Cholesterol mgmt Indication: Hypercholesteremia DM (diabetes mellitus), type 1, uncontrolled, with renal complications : Diet, Exercise, and Wt loss Indication: DM (diabetes mellitus), type 1, uncontrolled, with renal complications DM (diabetes mellitus), type 1, uncontrolled, with renal complications : *Diabetes Education Indication: DM (diabetes mellitus), type 1, uncontrolled, with renal complications Nonsmoker : Follow up if no improvement or if symptoms worsen Indication: Nonsmoker Gout : Reviewed Lab Indication: Gout CHRONIC KIDNEY DISEASE, STAGE IV (SEVERE) : Reviewed Lab Indication: CHRONIC KIDNEY DISEASE, STAGE IV (SEVERE) Diarrhea : Reviewed Lab Indication: Diarrhea Diarrhea : Follow up in 1 week Indication: Diarrhea Diarrhea : *Abd Pain Red Flags Indication: Diarrhea Diarrhea : Diarrhea instructions Indication: Diarrhea Diarrhea : Eprescribed prescriptions (G8553) Indication: Diarrhea Gout of right foot : Follow up in 2 weeks Indication: Gout of right foot Gout of right foot : Follow up in 2 weeks Indication: Gout of right foot Gout of right foot : Gout: foot Indication: Gout of right foot Body mass index 40.0-44.9, adult (Renamed from Body mass index (BMI) of 40.0-44.9 in adult) : Eprescribed prescriptions (G8553) Indication: Body mass index 40.0-44.9, adult (Renamed from Body mass index (BMI) of 40.0-44.9 in adult) Body mass index 40.0-44.9, adult (Renamed from Body mass index (BMI) of 40.0-44.9 in adult) : Eprescribed prescriptions (G8553) Indication: Body mass index 40.0-44.9, adult (Renamed from Body mass index (BMI) of 40.0-44.9 in adult) Hypercholesteremia : Cholesterol mgmt Indication: Hypercholesteremia Hypertension with renal disease : BP MONITORING - SELF Indication: Hypertension with renal disease Hypertension with renal disease : Diet, Exercise, and Wt loss Indication: Hypertension with renal disease Hypertension with renal disease : HTN/CAD Red Flags Indication: Hypertension with renal disease GERD (gastroesophageal reflux disease) : GERD Education Indication: GERD (gastroesophageal reflux disease) Asthma : Reviewed [employer] Letter Indication: Asthma Asthma : Continue Current Prescription(s) Indication: Asthma DM (diabetes mellitus), type 1, uncontrolled, with renal complications : Follow up in 3 months- do ekg Indication: DM (diabetes mellitus), type 1, uncontrolled, with renal complications Chronic kidney disease, stage III (moderate) : Reviewed [employer] Letter Indication: Chronic kidney disease, stage III (moderate) DM (diabetes mellitus), type 1, uncontrolled, with renal complications : Eprescribed prescriptions (G8553) Indication: DM (diabetes mellitus), type 1, uncontrolled, with renal complications Gout, arthropathy : Solu Medrol Injection/ Education Indication: Gout, arthropathy Encounter for screening for malignant neoplasm of colon (Renamed from Special screening for malignant neoplasms, colon) : *Colon Cancer Screening Indication: Encounter for screening for malignant neoplasm of colon (Renamed from Special screening for malignant neoplasms, colon) Annual Medicare Phyiscal WITHOUT abnormal findings (Renamed from Encounter for general adult medical examination without abnormal findings) : fall reduction handout Indication: Annual Medicare Phyiscal WITHOUT abnormal findings (Renamed from Encounter for general adult medical examination without abnormal findings) Annual Medicare Phyiscal WITHOUT abnormal findings (Renamed from Encounter for general adult medical examination without abnormal findings) : elderly packet given Indication: Annual Medicare Phyiscal WITHOUT abnormal findings (Renamed from Encounter for general adult medical examination without abnormal findings) Annual Medicare Phyiscal WITHOUT abnormal findings (Renamed from Encounter for general adult medical examination without abnormal findings) : *Weight Loss Discussion Indication: Annual Medicare Phyiscal WITHOUT abnormal findings (Renamed from Encounter for general adult medical examination without abnormal findings) Annual Medicare Phyiscal WITHOUT abnormal findings (Renamed from Encounter for general adult medical examination without abnormal findings) : advance planning information Indication: Annual Medicare Phyiscal WITHOUT abnormal findings (Renamed from Encounter for general adult medical examination without abnormal findings) Postmenopausal : Self breast exam Indication: Postmenopausal Unspecified asthma with (acute) exacerbation : Solu Medrol Injection/ Education Indication: Unspecified asthma with (acute) exacerbation Hypertriglyceridemia : Reviewed Lab Indication: Hypertriglyceridemia Hypertriglyceridemia : Continue Current Prescription(s) Indication: Hypertriglyceridemia Hypertriglyceridemia : Health Maintenance: Controlling Cholesterol: arteries Indication: Hypertriglyceridemia Hypertriglyceridemia : Eprescribed prescriptions (G8553) Indication: Hypertriglyceridemia Cough : Follow up if no improvement or if symptoms worsen Indication: Cough Diabetes typeII,controlled, renal comp : Follow up in 3 months Indication: Diabetes typeII,controlled, renal comp Atrial fibrillation : Reviewed [employer] Letter Indication: Atrial fibrillation Hypercholesteremia : Reviewed Lab Indication: Hypercholesteremia Hypertension with renal disease : Diet, Exercise, and Wt loss Indication: Hypertension with renal disease Hypertension with renal disease : HTN/CAD Red Flags Indication: Hypertension with renal disease Diabetes typeII,controlled, renal comp : Eprescribed prescriptions (G8553) Indication: Diabetes typeII,controlled, renal comp Diabetes typeII,controlled, renal comp : Diabetes and Exercise: Preventing Low Blood Sugar: blood sugar Indication: Diabetes typeII,controlled, renal comp Fall : Follow up if no improvement or if symptoms worsen Indication: Fall Osteopenia : Reviewed Diagnostic Tests Indication: Osteopenia DM (diabetes mellitus), type 1, uncontrolled, with renal complications : Continue Current Prescription(s) Indication: DM (diabetes mellitus), type 1, uncontrolled, with renal complications Asthma : Eprescribed prescriptions (G8553) Indication: Asthma DM (diabetes mellitus), type 1, uncontrolled, with renal complications : Follow up in 3 weeks- sugar fu Indication: DM (diabetes mellitus), type 1, uncontrolled, with renal complications DM (diabetes mellitus), type 1, uncontrolled, with renal complications : Continue Current Prescription(s) Indication: DM (diabetes mellitus), type 1, uncontrolled, with renal complications Impacted fracture : Reviewed Diagnostic Tests Indication: Impacted fracture Impacted fracture : Reviewed [employer] Letter Indication: Impacted fracture Hypertension with renal disease : BP MONITORING - SELF Indication: Hypertension with renal disease Hypertension with renal disease : Continue Current Prescription(s) Indication: Hypertension with renal disease Hypercalcemia : Reviewed Lab Indication: Hypercalcemia DM (diabetes mellitus), type 1, uncontrolled, with renal complications : Follow up in 1 week- ck Indication: DM (diabetes mellitus), type 1, uncontrolled, with renal complications DM (diabetes mellitus), type 1, uncontrolled, with renal complications : Eprescribed prescriptions (G8553) Indication: DM (diabetes mellitus), type 1, uncontrolled, with renal complications Abnormal chest x-ray : Eprescribed prescriptions (G8553) Indication: Abnormal chest x-ray Abnormal lung sounds : Solu Medrol Injection/ Education Indication: Abnormal lung sounds Abnormal chest x-ray : Reviewed Diagnostic Tests Indication: Abnormal chest x-ray Abdominal pain : Follow up if no improvement or if symptoms worsen Indication: Abdominal pain Diarrhea : *URI Treatment Indication: Diarrhea Diarrhea : *URI Symptoms Indication: Diarrhea Diarrhea : *Antibiotic Usage Education - Female Indication: Diarrhea Hypercalcemia : Eprescribed prescriptions (G8553) Indication: Hypercalcemia Annual Medicare Phyiscal WITHOUT abnormal findings (Renamed from Encounter for general adult medical examination without abnormal findings) : fall reduction handout Indication: Annual Medicare Phyiscal WITHOUT abnormal findings (Renamed from Encounter for general adult medical examination without abnormal findings) Annual Medicare Phyiscal WITHOUT abnormal findings (Renamed from Encounter for general adult medical examination without abnormal findings) : elderly packet given Indication: Annual Medicare Phyiscal WITHOUT abnormal findings (Renamed from Encounter for general adult medical examination without abnormal findings) Annual Medicare Phyiscal WITHOUT abnormal findings (Renamed from Encounter for general adult medical examination without abnormal findings) : advance planning information Indication: Annual Medicare Phyiscal WITHOUT abnormal findings (Renamed from Encounter for general adult medical examination without abnormal findings) Annual Medicare Phyiscal WITHOUT abnormal findings (Renamed from Encounter for general adult medical examination without abnormal findings) : *Weight Loss Discussion Indication: Annual Medicare Phyiscal WITHOUT abnormal findings (Renamed from Encounter for general adult medical examination without abnormal findings) Annual Medicare Phyiscal WITHOUT abnormal findings (Renamed from Encounter for general adult medical examination without abnormal findings) : Self breast exam Indication: Annual Medicare Phyiscal WITHOUT abnormal findings (Renamed from Encounter for general adult medical examination without abnormal findings) Encounter for screening for malignant neoplasm of colon (Renamed from Special screening for malignant neoplasms, colon) : *Colon Cancer Screening Indication: Encounter for screening for malignant neoplasm of colon (Renamed from Special screening for malignant neoplasms, colon) Hypercholesteremia : Reviewed Lab Indication: Hypercholesteremia Epigastric pain : Follow up in 2 weeks- karson abdomen Indication: Epigastric pain DM (diabetes mellitus), type 1, uncontrolled, with renal complications : Follow up in 3 months Indication: DM (diabetes mellitus), type 1, uncontrolled, with renal complications Chronic kidney disease, stage III (moderate) : Reviewed [employer] Letter- Dr Ribeiro Indication: Chronic kidney disease, stage III (moderate) Hypercholesteremia : Cholesterol mgmt Indication: Hypercholesteremia Hypertension with renal disease : Diet, Exercise, and Wt loss Indication: Hypertension with renal disease Hypertension with renal disease : HTN/CAD Red Flags Indication: Hypertension with renal disease DM (diabetes mellitus), type 1, uncontrolled, with renal complications : Eprescribed prescriptions (G8553) Indication: DM (diabetes mellitus), type 1, uncontrolled, with renal complications DM (diabetes mellitus), type 1, uncontrolled, with renal complications : Diabetes and Exercise: Preventing Low Blood Sugar: blood sugar Indication: DM (diabetes mellitus), type 1, uncontrolled, with renal complications DM (diabetes mellitus), type 1, uncontrolled, with renal complications : Eprescribed prescriptions (G8553) Indication: DM (diabetes mellitus), type 1, uncontrolled, with renal complications DM (diabetes mellitus), type 1, uncontrolled, with renal complications : Follow up in 1 week Indication: DM (diabetes mellitus), type 1, uncontrolled, with renal complications DM (diabetes mellitus), type 1, uncontrolled, with renal complications : Blood Glucose Test: diabetes Indication: DM (diabetes mellitus), type 1, uncontrolled, with renal complications DM (diabetes mellitus), type 1, uncontrolled, with renal complications : Eprescribed prescriptions (G8553) Indication: DM (diabetes mellitus), type 1, uncontrolled, with renal complications Bronchitis : Continue Current Prescription(s) Indication: Bronchitis Diabetes mellitus type II, controlled : Continue Current Prescription(s) Indication: Diabetes mellitus type II, controlled Bronchitis : Eprescribed prescriptions (G8553) Indication: Bronchitis Cough : Eprescribed prescriptions (G8553) Indication: Cough Hypercholesteremia : Reviewed Lab Indication: Hypercholesteremia Chronic kidney disease, stage III (moderate) : Reviewed [employer] Letter Indication: Chronic kidney disease, stage III (moderate) Hypertension with renal disease : HTN/CAD Red Flags Indication: Hypertension with renal disease Hypercholesteremia : Cholesterol mgmt Indication: Hypercholesteremia Diabetes mellitus type II, controlled : Eprescribed prescriptions (G8553) Indication: Diabetes mellitus type II, controlled Diabetes mellitus type II, controlled : Diabetes and Exercise: Preventing Low Blood Sugar: blood sugar Indication: Diabetes mellitus type II, controlled FATIGUE : Reviewed Lab Indication: FATIGUE Diabetes mellitus type 2, uncontrolled, without complications : Eprescribed prescriptions (G8553) Indication: Diabetes mellitus type 2, uncontrolled, without complications Diabetes mellitus type 2, uncontrolled, without complications : Follow up in 3 weeks Indication: Diabetes mellitus type 2, uncontrolled, without complications FATIGUE : *fatigue education Indication: FATIGUE Osteopenia : Eprescribed prescriptions (G8553) Indication: Osteopenia Bronchitis : Follow up in 2 days Indication: Bronchitis SYMPTOM, WHEEZING : Eprescribed prescriptions (G8553) Indication: SYMPTOM, WHEEZING Bronchitis : Follow up thursday- Indication: Bronchitis Bronchitis : Continue Current Prescription(s) Indication: Bronchitis Bronchitis : *Antibiotic Usage Education - Female Indication: Bronchitis SYMPTOM, WHEEZING : Follow up if no improvement or if symptoms worsen Indication: SYMPTOM, WHEEZING Bronchitis : *URI Treatment Indication: Bronchitis Bronchitis : *URI Symptoms Indication: Bronchitis Bronchitis : *Antibiotic Usage Education - Female Indication: Bronchitis Encounter for Medicare annual wellness exam : *Colon Cancer Screening Indication: Encounter for Medicare annual wellness exam Diabetes mellitus type II, controlled : Follow up in 3 months Indication: Diabetes mellitus type II, controlled Chronic kidney disease, stage III (moderate) : Reviewed [employer] Letter Indication: Chronic kidney disease, stage III (moderate) Encounter for Medicare annual wellness exam : fall reduction handout Indication: Encounter for Medicare annual wellness exam Encounter for Medicare annual wellness exam : elderly packet given Indication: Encounter for Medicare annual wellness exam Encounter for Medicare annual wellness exam : advance planning information Indication: Encounter for Medicare annual wellness exam Chronic kidney disease, stage III (moderate) : Reviewed Lab Indication: Chronic kidney disease, stage III (moderate) Hypertension with renal disease : Continue Current Prescription(s) Indication: Hypertension with renal disease Hypertension with renal disease : HTN/CAD Red Flags Indication: Hypertension with renal disease Hypercholesteremia : Cholesterol mgmt Indication: Hypercholesteremia GERD (gastroesophageal reflux disease) : GERD Education Indication: GERD (gastroesophageal reflux disease) Diabetes mellitus type II, controlled : Diabetes and Exercise: Preventing Low Blood Sugar: diabetes Indication: Diabetes mellitus type II, controlled Hypercholesteremia : *Cholesterol - Nonprescription Treatment Indication: Hypercholesteremia Hypercholesteremia : Cholesterol mgmt Indication: Hypercholesteremia Hypertension with renal disease : Reviewed Lab Indication: Hypertension with renal disease Hypertension with renal disease : HTN/CAD Red Flags Indication: Hypertension with renal disease Chronic kidney disease, stage III (moderate) : Reviewed Metal Leaf Layer Letter Indication: Chronic kidney disease, stage III (moderate) Diabetes mellitus type II, controlled : Eprescribed prescriptions (G8553) Indication: Diabetes mellitus type II, controlled Diabetes mellitus type II, controlled : Diabetes and Exercise: Preventing Low Blood Sugar: blood sugar Indication: Diabetes mellitus type II, controlled Burping : Follow up if no improvement or if symptoms worsen Indication: Burping Abdominal pain : Celiac Disease and the Gluten-Free Diet: celiac disease Indication: Abdominal pain Abdominal pain : Eprescribed prescriptions (G8553) Indication: Abdominal pain Hypercalcemia : Reviewed Lab Indication: Hypercalcemia Hypercalcemia : Follow up - Make appt after diagnostic tests Indication: Hypercalcemia Chronic kidney disease, stage III (moderate) : Reviewed Metal Leaf Layer Letter-- dr ribeiro Indication: Chronic kidney disease, stage III (moderate) Knee pain, right : Follow up if no improvement or if symptoms worsen Indication: Knee pain, right Knee pain, right : Arthritis Overview *: musculoskeletal Indication: Knee pain, right Knee pain, right : Eprescribed prescriptions (G8553) Indication: Knee pain, right Edema : Lower Extremity Edema Education Indication: Edema Encounter for Medicare annual wellness exam : *Colon Cancer Screening Indication: Encounter for Medicare annual wellness exam Encounter for Medicare annual wellness exam : fall reduction handout Indication: Encounter for Medicare annual wellness exam Encounter for Medicare annual wellness exam : elderly packet given Indication: Encounter for Medicare annual wellness exam Encounter for Medicare annual wellness exam : advance planning information Indication: Encounter for Medicare annual wellness exam Encounter for Medicare annual wellness exam : *Weight Loss Discussion Indication: Encounter for Medicare annual wellness exam Diabetes mellitus type II, controlled : Reviewed Lab Indication: Diabetes mellitus type II, controlled Chronic kidney disease, stage III (moderate) : Reviewed Metal Leaf Layer Letter: Dr ribeiro Indication: Chronic kidney disease, stage III (moderate) Diabetes mellitus type II, controlled : *Diabetes Education Indication: Diabetes mellitus type II, controlled Hypercholesteremia : Cholesterol mgmt Indication: Hypercholesteremia Hypertension with renal disease : Diet, Exercise, and Wt loss Indication: Hypertension with renal disease Hypertension with renal disease : HTN/CAD Red Flags Indication: Hypertension with renal disease Aspiration pneumonia : Reviewed Metal Leaf Layer Letter Indication: Aspiration pneumonia Aspiration pneumonia : Reviewed Diagnostic Tests Indication: Aspiration pneumonia SYMPTOM, WHEEZING : Continue Current Prescription(s)-- symbicort and albulterol Indication: SYMPTOM, WHEEZING SYMPTOM, WHEEZING : Follow up if no improvement or if symptoms worsen Indication: SYMPTOM, WHEEZING Encounter for Medicare annual wellness exam : *Colon Cancer Screening Indication: Encounter for Medicare annual wellness exam Hypertension with renal disease : BP MONITORING - SELF Indication: Hypertension with renal disease Hypertension with renal disease : Continue Current Prescription(s) Indication: Hypertension with renal disease Hypercholesteremia : Cholesterol mgmt Indication: Hypercholesteremia Encounter for Medicare annual wellness exam : *Weight Loss Discussion Indication: Encounter for Medicare annual wellness exam Encounter for Medicare annual wellness exam : fall reduction handout Indication: Encounter for Medicare annual wellness exam Encounter for Medicare annual wellness exam : elderly packet given Indication: Encounter for Medicare annual wellness exam Encounter for Medicare annual wellness exam : advance planning information Indication: Encounter for Medicare annual wellness exam Localized, primary osteoarthritis of lower leg : Euflexxa injection Indication: Localized, primary osteoarthritis of lower leg Localized, primary osteoarthritis of lower leg : Euflexxa injection Indication: Localized, primary osteoarthritis of lower leg Unspecified osteoarthritis, unspecified site : Euflexxa injection Indication: Unspecified osteoarthritis, unspecified site Unspecified osteoarthritis, unspecified site : Euflexxa injection Indication: Unspecified osteoarthritis, unspecified site Unspecified osteoarthritis, unspecified site : Euflexxa injection Indication: Unspecified osteoarthritis, unspecified site Unspecified osteoarthritis, unspecified site : Euflexxa injection Indication: Unspecified osteoarthritis, unspecified site Sciatic nerve pain : Solu Medrol Injection/ Education Indication: Sciatic nerve pain Pain in unspecified joint : Reviewed Diagnostic Tests Indication: Pain in unspecified joint Pain in unspecified joint : Reviewed Lab Indication: Pain in unspecified joint Abnormal EKG : Reviewed Diagnostic Tests Indication: Abnormal EKG Pain in unspecified joint : Allergies: Controlling Your Environment: allergen Indication: Pain in unspecified joint Pain in unspecified joint : Follow up in 1 week Indication: Pain in unspecified joint GERD (gastroesophageal reflux disease) : GERD Education Indication: GERD (gastroesophageal reflux disease) Hypertension with renal disease : HTN/CAD Red Flags Indication: Hypertension with renal disease Unspecified asthma with (acute) exacerbation : Continue Current Prescription(s) Indication: Unspecified asthma with (acute) exacerbation Diabetes mellitus type II, controlled : *Diabetes Education Indication: Diabetes mellitus type II, controlled Hypercholesteremia : Cholesterol mgmt Indication: Hypercholesteremia Hypokalemia : Reviewed Lab Indication: Hypokalemia Diabetes mellitus type II, controlled : Diabetes and Exercise: Preventing Low Blood Sugar: blood sugar Indication: Diabetes mellitus type II, controlled Heart burn : Continue Current Prescription(s) Indication: Heart burn Rash : Hives: skin Indication: Rash Diabetes mellitus type 2, uncontrolled, without complications : Follow up in 3 months Indication: Diabetes mellitus type 2, uncontrolled, without complications Chronic kidney disease, stage III (moderate) : Reviewed Metal Leaf Layer Letter Indication: Chronic kidney disease, stage III (moderate) Diabetes mellitus type 2, uncontrolled, without complications : Reviewed Lab Indication: Diabetes mellitus type 2, uncontrolled, without complications GERD (gastroesophageal reflux disease) : GERD Education Indication: GERD (gastroesophageal reflux disease) Diabetes mellitus type 2, uncontrolled, without complications : *Diabetes Education Indication: Diabetes mellitus type 2, uncontrolled, without complications Hypercholesteremia : Cholesterol mgmt Indication: Hypercholesteremia Hypertension with renal disease : HTN/CAD Red Flags Indication: Hypertension with renal disease GERD (gastroesophageal reflux disease) : GERD Education Indication: GERD (gastroesophageal reflux disease) Hypertension with renal disease : HTN/CAD Red Flags Indication: Hypertension with renal disease Hypercholesteremia : Cholesterol mgmt Indication: Hypercholesteremia Diabetes mellitus type II, controlled : Follow up march 2013 when returns Indication: Diabetes mellitus type II, controlled Diabetes mellitus type II, controlled : Diabetes Mellitus: Type 2 *: diabetes type 2 Indication: Diabetes mellitus type II, controlled Encounter for Medicare annual wellness exam : elderly packet given Indication: Encounter for Medicare annual wellness exam Encounter for Medicare annual wellness exam : advance planning information Indication: Encounter for Medicare annual wellness exam Other specified viral infection, in conditions classified elsewhere and of unspecified site : *URI Symptoms Indication: Other specified viral infection, in conditions classified elsewhere and of unspecified site Other specified viral infection, in conditions classified elsewhere and of unspecified site : *URI Treatment Indication: Other specified viral infection, in conditions classified elsewhere and of unspecified site Diabetes mellitus type II, controlled : Diabetes Overview (Living with Diabetes): high blood glucose Indication: Diabetes mellitus type II, controlled Gout : Follow up in 2 weeks Indication: Gout Asthma : Continue Current Prescription(s) Indication: Asthma Diabetes mellitus type II, controlled : Follow up in 3 months Indication: Diabetes mellitus type II, controlled Hypertension with renal disease : HTN/CAD Red Flags Indication: Hypertension with renal disease Hypercholesteremia : *Cholesterol - Medication Side Effects Indication: Hypercholesteremia Hypercholesteremia : *Cholesterol - Nonprescription Treatment Indication: Hypercholesteremia Hypercholesteremia : Cholesterol mgmt Indication: Hypercholesteremia Diabetes mellitus type II, controlled : *Diabetes Education Indication: Diabetes mellitus type II, controlled Diabetes mellitus type II, controlled : Diabetes Overview (Living with Diabetes): type 2 diabetes Indication: Diabetes mellitus type II, controlled Hypertension with renal disease : Diet, Exercise, and Wt loss Indication: Hypertension with renal disease Hypertension with renal disease : HTN/CAD Red Flags Indication: Hypertension with renal disease Hypercholesteremia : *Cholesterol - Nonprescription Treatment Indication: Hypercholesteremia Hypercholesteremia : Cholesterol mgmt Indication: Hypercholesteremia Hypertension with renal disease : Diet, Exercise, and Wt loss Indication: Hypertension with renal disease Hypertension with renal disease : HTN/CAD Red Flags Indication: Hypertension with renal disease Hypertension with renal disease : BP MONITORING - SELF Indication: Hypertension with renal disease Chronic kidney disease, stage III (moderate) : Reviewed Metal Leaf Layer Letter- w/u in progress Indication: Chronic kidney disease, stage III (moderate) Hypertension with renal disease : Follow up in 1 month Indication: Hypertension with renal disease Hypertension with renal disease : Reviewed Lab Indication: Hypertension with renal disease Hypertension, benign : Reviewed Lab Indication: Hypertension, benign Hypertension, benign : Follow up in 3 weeks Indication: Hypertension, benign Hypertension, benign : Diet, Exercise, and Wt loss Indication: Hypertension, benign Hypertension, benign : HTN/CAD Red Flags Indication: Hypertension, benign Hypercholesteremia : *Cholesterol - Nonprescription Treatment Indication: Hypercholesteremia Hypercholesteremia : Cholesterol mgmt Indication: Hypercholesteremia Diabetes mellitus type II, controlled : Follow up in 3 months Indication: Diabetes mellitus type II, controlled Hypertension, benign : HTN/CAD Red Flags Indication: Hypertension, benign Hypertension, benign : Diet, Exercise, and Wt loss Indication: Hypertension, benign GERD (gastroesophageal reflux disease) : GERD Education Indication: GERD (gastroesophageal reflux disease) Hypercholesteremia : *Cholesterol - Nonprescription Treatment Indication: Hypercholesteremia Hypercholesteremia : Cholesterol mgmt Indication: Hypercholesteremia Diabetes mellitus type II, controlled : Follow up in 3 months Indication: Diabetes mellitus type II, controlled Diabetes mellitus type II, controlled : Diet, Exercise, and Wt loss Indication: Diabetes mellitus type II, controlled Diabetes mellitus type II, controlled : *Diabetes Education Indication: Diabetes mellitus type II, controlled Reviewed Diagnostic Tests Abnormal blood chemistry : Follow up in 2 weeks Indication: Abnormal blood chemistry Diabetes mellitus type 2, uncontrolled, without complications : FOLLOW UP IN 3 MONTHS Indication: Diabetes mellitus type 2, uncontrolled, without complications Hypertension, benign : Diet, Exercise, and Wt loss Indication: Hypertension, benign Hypertension, benign : HTN/CAD Red Flags Indication: Hypertension, benign GERD (gastroesophageal reflux disease) : GERD Education Indication: GERD (gastroesophageal reflux disease) Hypercholesteremia : CHOLESTEROL MGMT. Indication: Hypercholesteremia Hypercholesteremia : *Cholesterol - Nonprescription Treatment Indication: Hypercholesteremia Diabetes mellitus type 2, uncontrolled, without complications : Diet, Exercise, and Wt loss Indication: Diabetes mellitus type 2, uncontrolled, without complications Diabetes mellitus type 2, uncontrolled, without complications : *Diabetes Education Indication: Diabetes mellitus type 2, uncontrolled, without complications Well woman exam : Shingles Vaccine Education 2005 Indication: Well woman exam Well woman exam : *Colon Cancer Screening Indication: Well woman exam Well woman exam : SELF BREAST EXAM Indication: Well woman exam Diabetes mellitus type 2, uncontrolled, without complications : Continue Current Prescription(s) Indication: Diabetes mellitus type 2, uncontrolled, without complications Hypertension, benign : Continue Current Prescription(s) Indication: Hypertension, benign Hypertension, benign : FOLLOW UP IN 3 WEEKS Indication: Hypertension, benign Hypertension, benign : FOLLOW UP IN 3 WEEKS Indication: Hypertension, benign Hypertension, benign : BP MONITORING - SELF Indication: Hypertension, benign Diabetes mellitus type 2, uncontrolled, without complications : FOLLOW UP IN 3 MONTHS Indication: Diabetes mellitus type 2, uncontrolled, without complications Hypercholesteremia : CHOLESTEROL MGMT. Indication: Hypercholesteremia Hypercholesteremia : *Cholesterol - Nonprescription Treatment Indication: Hypercholesteremia Hypercholesteremia : *Cholesterol - Medication Side Effects Indication: Hypercholesteremia GERD (gastroesophageal reflux disease) : GERD Education Indication: GERD (gastroesophageal reflux disease) Hypertension, benign : Diet, Exercise, and Wt loss Indication: Hypertension, benign Hypertension, benign : HTN/CAD Red Flags Indication: Hypertension, benign Diabetes mellitus type 2, uncontrolled, without complications : *Diabetes Education Indication: Diabetes mellitus type 2, uncontrolled, without complications Diabetes mellitus type 2, uncontrolled, without complications : Diet, Exercise, and Wt loss Indication: Diabetes mellitus type 2, uncontrolled, without complications Allergic rhinitis due to other allergen : ALLERGY PROOFING Indication: Allergic rhinitis due to other allergen Allergic rhinitis due to other allergen : ALLERGY CONTROL Indication: Allergic rhinitis due to other allergen Allergic rhinitis due to other allergen : *URI Symptoms Indication: Allergic rhinitis due to other allergen Diabetes mellitus type II, controlled : FOLLOW UP IN 3 MONTHS Indication: Diabetes mellitus type II, controlled Hypercholesteremia : CHOLESTEROL MGMT. Indication: Hypercholesteremia Hypercholesteremia : *Cholesterol - Nonprescription Treatment Indication: Hypercholesteremia Hypertension, benign : Diet, Exercise, and Wt loss Indication: Hypertension, benign Hypertension, benign : HTN/CAD Red Flags Indication: Hypertension, benign GERD (gastroesophageal reflux disease) : GERD Education Indication: GERD (gastroesophageal reflux disease) Diabetes mellitus type II, controlled : Diet, Exercise, and Wt loss Indication: Diabetes mellitus type II, controlled Diabetes mellitus type II, controlled : *Diabetes Education Indication: Diabetes mellitus type II, controlled Diabetes mellitus type II, controlled : Continue Current Prescription(s) Indication: Diabetes mellitus type II, controlled Weight gain : FOLLOW UP IN 4 WEEKS Indication: Weight gain Abdominal pain, acute, right upper quadrant : FOLLOW UP - MAKE APPT AFTER DIAGNOSTIC TESTS Indication: Abdominal pain, acute, right upper quadrant Diabetes mellitus type II, controlled : FOLLOW UP IN 3 MONTHS Indication: Diabetes mellitus type II, controlled Diabetes mellitus type II, controlled : Reviewed Lab Indication: Diabetes mellitus type II, controlled Abdominal pain, acute, right upper quadrant : Reviewed Lab: lft normal Indication: Abdominal pain, acute, right upper quadrant GERD (gastroesophageal reflux disease) : GERD Education Indication: GERD (gastroesophageal reflux disease) Hypercholesteremia : CHOLESTEROL MGMT. Indication: Hypercholesteremia Hypercholesteremia : *Cholesterol - Nonprescription Treatment Indication: Hypercholesteremia Hypercholesteremia : *Cholesterol - Medication Side Effects Indication: Hypercholesteremia Hypertension, benign : Diet, Exercise, and Wt loss Indication: Hypertension, benign Hypertension, benign : HTN/CAD Red Flags Indication: Hypertension, benign Diabetes mellitus type II, controlled : *Diabetes Education Indication: Diabetes mellitus type II, controlled Epigastric pain : FOLLOW UP IN 2 WEEKS Indication: Epigastric pain Hypercholesteremia : Reviewed Lab Indication: Hypercholesteremia Hypercholesteremia : CHOLESTEROL MGMT. Indication: Hypercholesteremia Hypercholesteremia : *Cholesterol - Nonprescription Treatment Indication: Hypercholesteremia Hypercholesteremia : *Cholesterol - Medication Side Effects Indication: Hypercholesteremia Diabetes mellitus type II, controlled : Continue Current Prescription(s) Indication: Diabetes mellitus type II, controlled Hypertension, benign : Continue Current Prescription(s) Indication: Hypertension, benign GERD (gastroesophageal reflux disease) : GERD Education Indication: GERD (gastroesophageal reflux disease) Planned Observations METABOLIC PANEL, COMPREHENSIVE ([id number])Indication: Medication monitoring encounter On: 6-Era-753544:10 Request Parathyroid Hormone-related Peptide (PTH-rP) ([id number])Indication: Hypercalcemia On: :40 Request Comments: send copy dr ribeiro CALCIUM SERUM ([id number])Indication: Hypercalcemia On: :40 Request Comments: send copy to dr ribeiro ELECTROLYTES, 24 HOUR URINE ([id number])Indication: Hypercalcemia On: 5-Ssa-835270:49 Request POTASSIUM SERUM ([id number])Indication: Hypercalcemia On: 1-Pjw-283105:48 Request Parathyroid Hormone-related Peptide (PTH-rP) (21348)Indication: Hypercalcemia On: :48 Request CALCIUM SERUM (69020)Indication: Hypercalcemia On: 4-Rdg-449922:48 Request CALCIUM URINE 03561 ([id number])Indication: Hypercalcemia On: :06 Request Comments: 24 hr urine ELECTROLYTES, 24 HOUR URINE ([id number])Indication: Hypercalcemia On: :06 Request FECAL OCCULT- Tubes sent home ([id number])Indication: Encounter for screening for malignant neoplasm of colon (Renamed from Special screening for malignant neoplasms, colon) On: 96-Jio-303203:47 Request Lipid Panel (34279)Indication: Hypercholesteremia On: 6-Pap-445961:02 Request CALCIFIDIOL (43463) VIT D 25Indication: FATIGUE On: 3-Hmo-976907:38 Request Folate (48560)Indication: FATIGUE On: 3-Joy-551624:38 Request VITAMIN B-12 (CYANOCOBALAMIN) (35958)Indication: FATIGUE On: 4-Fga-146816:38 Request TSH (75017)Indication: FATIGUE On: :38 Request SED RATE ERYTHROCYTE (23123)Indication: FATIGUE On: :38 Request RHEUMATOID FACTOR-QUANT (09116)Indication: FATIGUE On: :38 Request METABOLIC PANEL, COMPREHENSIVE (16600)Indication: FATIGUE On: :38 Request C-REACTIVE PROTEIN (35986)Indication: FATIGUE On: :38 Request CBC (AUTO) (81960)Indication: FATIGUE On: :38 Request HEIDI (ANTINUCLEAR ANTIBODY) (90817)Indication: FATIGUE On: :38 Request CULTURE, SPUTUM (02999)Indication: Cough On: 3-Cdz-512884:08 Request Metabolic Panel, Comprehensive (17013)Indication: Diabetes mellitus type 2, uncontrolled, without complications On: 46-Mnb-087821:21 Request FECAL OCCULT HGB ASSAY- tubes sent home (25104)Indication: Encounter for Medicare annual wellness exam On: 82-Ucw-93875:58 Request CALCIFIDIOL (87581) VIT D 25Indication: Vitamin D deficiency On: 51-Xcc-41585:48 Request MAGNESIUM (99296)Indication: Hypomagnesemia On: 65-Bro-70428:47 Request URINE ALFONZO CULTURE ([place] COL COUNT) (81502)Indication: Abdominal pain On: 97-Oqt-206834:37 Request Urinalysis, Office (88806)Indication: Abdominal pain On: 82-Ahx-965235:37 Request FECAL OCCULT HGB ASSAY- tubes sent home (61433)Indication: Encounter for Medicare annual wellness exam On: 61-Yha-37208:56 Request Metabolic Panel, Basic (89975)Indication: Chronic kidney disease, stage III (moderate) On: 16-Imr-666650:11 Request POTASSIUM SERUM (44028)Indication: Hypokalemia On: 18-Ouu-63188:13 Request TSH (60931)Indication: Diabetes mellitus type II, controlled On: 1-Uhq-250377:01 Request URINALYSIS, W/ MICRO (10954)Indication: Diabetes mellitus type II, controlled On: 7-Wcw-954199:01 Request MICROALBUMIN: CREATININE RATIO (16997) AND (52496)Indication: Diabetes mellitus type II, controlled On: : Request METABOLIC PANEL, COMPREHENSIVE (23596)Indication: Diabetes mellitus type II, controlled On: : Request LIPID PANEL (38140)Indication: Diabetes mellitus type II, controlled On: Request CBC WITH MANUAL DIFF ([id number])Indication: Diabetes mellitus type II, controlled On: Request LIPOPROTEIN, BLD, BY NMR (20911)Indication: Hypercholesteremia On: : Request LIPID PANEL (09193)Indication: Hypercholesteremia On: : Request Comments: do in 3 months HEPATIC FUNCTION PANEL (76970)Indication: Hypercholesteremia On: Request LIPID PANEL (33865)Indication: Hypertension, benign On: :33 Request Planned Encounters Medical; 3 Month FU - On: 08-Nov-2018 8:45 [facility] Veronica Oquendo DO, DO, Kathleen Planned Procedures Solu -Medrol Injection, 125 mg On: 18-Aug-2018 Intent ([id number])By: Kassandra Fortune CNP Flu Vaccine (Quadrivalent) 43072Cz: On: 09-Aug-2018 Intent Veronica Oquendo DO, DO, Comments: Lot #[id number]-L dltd, IMDose prefilled syringegiven by:ANTOINE Munoz reviewed and ABN signed Veronica ELECTROCARDIOGRAM, COMPLETE (ECG) On: 09-Aug-2018 Intent ([id number])By: Veronica Oquendo DO Comments: nsr - RBBB - no t acute Veronica Oquendo DO [id number]-UV-[id number] BEHAVIORAL COUNSELING On: 09-Apr-2018 Intent FOR OBESITY, 15 MINUTES ([id number])By: Veronica Oquendo DO, DO, Kathleen SCREENING DIGITAL TOMOSYNTHESIS OF On: 09-Apr-2018 Intent BREAST ([id number])By: Veronica Oquendo DO, DO, Kathleen Solu- Medrol Injection, 125mg On: 01-Jan-2018 Intent ([id number])By: Veronica Oquendo DO Comments: 125mg - 1 [id number] hip, IMJoaquina Stanton, DEPUTY DIRECTOR Veronica Oquendo DO CHEST XRAY, PA & LATERAL ([id number])By: On: 23-Dec-2017 Intent Veronica Oquendo DO, DO, Kathleen CHEST XRAY, PA & LATERAL ([id number])By: On: 22-Dec-2017 Intent Kelsea Lund Aerosol Treatment (21736)By: On: 22-Dec-2017 Intent Kelsea Lund Comments: Still has wheezing in right lobe after aerosol treatment. Aerosol Treatment (10917)By: Azra On: 25-Nov-2017 Veronica Pabon DO, DO, Kathleen Comments: more a/e less reactivity 0-no wheeze but still that Rub in RLL area Solu- Medrol Injection, 125mg On: 25-Nov-2017 Intent ([id number])By: Veronica Oquendo DO Comments: [id number], 1vialMLONG DEPUTY DIRECTOR Veronica Oquendo DO Solu- Medrol Injection, 125mg On: 27-Oct-2017 Intent ([id number])By: Kelsea Lund Comments: solumedrol 125mg injectionlot: [id number]: 10/2019L GMpt tolerated wellAD DEPUTY DIRECTOR Aerosol Treatment ([id number])By: On: 27-Oct-2017 Intent Kelsea Lund Comments: expiratory wheeze after albuterol aerosol treatment. EKG (59130)By: Veronica Oquendo DO On: 14-Oct-2017 Intent Veronica Oquendo DO Comments: nsr no acute chg- RBBB Aerosol Treatment ([id number])By: Azra On: 14-Aug-2017 Veronica Pabon DO, DO, Kathleen Comments: no noise and more a/e Solu- Medrol Injection, 125mg On: 14-Aug-2017 Intent ([id number])By: Veronica Oquendo DO Comments: lot [id number] mgright gmIMas, DEPUTY DIRECTOR Veronica Oquendo DO Solu- Medrol Injection, 125mg On: 05-Aug-2017 Intent ([id number])By: Veronica Oquendo DO Comments: Lot:[id number]:125mgRoute:imSite:r hipGiven By:MICHAEL signed Veronica Oquendo DO Flu Vaccine (Quadrivalent) [id number]: On: 28-Jul-2017 Intent Veronica Oquendo DO, DO, Kathleen ELECTROCARDIOGRAM, COMPLETE (ECG) On: 28-Jul-2017 Intent ([id number])By: Veronica Oquendo DO, DO, Kathleen IV Needle placement (80318)By: On: 14-Jul-2017 Intent Kassandra Fortune CNP ORTHOSTATIC BLOOD PRESSURE On: 14-Jul-2017 Intent ASSESSMENT ([id number])By: Kassandar Fortune CNP INFUSION, NORMAL SALINE SOLUTION , On: 14-Jul-2017 Intent 1000 CC (Special Coverage Instructions Apply. See MCM: 2049) ([id number])By: Kassandra Fortune CNP Solu -Medrol Injection, 125 mg On: 22-Jun-2017 Intent ([id number])By: Kelsea Lund Solu- Medrol Injection, 125mg On: 17-Apr-2017 Intent ([id number])By: Veronica Oquendo DO Comments: Lot:[id number]:04/2019Dose:125mgRoute:imSite:l armGiven By:NOE signed Veronica Oquendo DO DEXA SCAN AXIAL SKELETON ([id number])By: On: 06-Apr-2017 Intent Veronica Oquendo DO, DO, Kathleen SCREENING DIGITAL TOMOSYNTHESIS OF On: 06-Apr-2017 Intent BREAST ([id number])By: Veronica Oquendo DO, DO, Kathleen Flu Vaccine (Quadrivalent) [id number]: On: 20-Aug-2016 Intent Veronica Oquendo DO, DO, Comments: FLUlot: [id number]:05/29/17site:Lt deltoidroute:IMdose:.5mlVALENTINA MOBLEY Solu- Medrol Injection, 125mg On: 20-Aug-2016 Intent ([id number])By: Veronica Oquendo DO Comments: solumedrollot:[id number]:03/18site:lt glutroute:IMdose:125mgDVALENTINA Calderón DO, Kathleen Solu -Medrol Injection, 125 mg On: 13-Aug-2016 Intent ([id number])By: Kassandra Fortune CNP Comments: Lot:[id number]:02/2019Dose:125mgRoute:imSite:l hip Given By:NOE signed Aerosol Treatment ([id number])By: Irma On: 13-Aug-2016 Intent Clarisse SCHWARZ Radiology - Shoulder - LeftBy: Devika On: 04-Jul-2016 Intent Kassandra LUU Radiology - Knee - LeftBy: Devika On: 04-Jul-2016 Intent Kassandra LUU Comments: send result to Dr. Delgadillo Toradol Injection, 30 mg ([id number])By: On: 04-Jul-2016 Intent Kassandra Fortune CNP Aerosol Treatment ([id number])By: Azra On: 12-May-2016 Veronica Pabon DO, DO, Kathleen Comments: less cough and more a./e- no wheeze Solu- Medrol Injection, 125mg On: 12-May-2016 Intent ([id number])By: Veronica Oquendo DO Comments: lot: [id number]: 12/18site/route: RGM/IMamt: 2mLVIS signed when applicableChelsea, Veronica Gillis DO CT - Chest (IV Contrast Needed)By: On: 09-May-2016 Intent Veronica Oquendo DO, DO, Kathleen Radiology - Chest- PA and LatBy: On: 08-May-2016 Intent Veornica Oquendo DO, DO, Veronica PNEUM VAC ADLT/IMUMNOSPR, SBC/INTRM On: 21-Apr-2016 Intent ([id number])By: Veronica Oquendo DO Comments: pneumovaxlot:[id number]:09/06/17site:lt deltroute:IMD.VALENTINA Dunlap DO, Kathleen [id number] BEHAVIORAL COUNSELING On: 21-Apr-2016 Intent FOR OBESITY, 15 MINUTES (G0447)By: Veronica Oquendo DO, DO, Kathleen MAMMOGRAM, SCREENING, BOTH BREAST On: 21-Apr-2016 Intent ([id number])By: Veronica Oquendo DO, DO, Kathleen Radiology - Knee - RightBy: Azra On: 14-Apr-2016 Intent Veronica JEAN-BAPTISTE DO, Kathleen Radiology - Knee - LeftBy: Azra On: 14-Apr-2016 Veronica Pabon DO, DO, Kathleen ADMINISTRATION OF INFLUENZA VIRUS On: 09-Aug-2015 Intent VACCINE (G0008)By: Veronica Oquendo DO, DO, Kathleen Flu Vaccine (Quadrivalent) [id number]: On: 09-Aug-2015 Intent Veronica Oquendo DO, DO, Comments: Lot:[id number]:02/27/16Dose:0.5mLRoute:IMSite:L DltdGiven By:NOE signed Veronica Solu -Medrol Injection, 125 mg On: 03-Aug-2015 Intent (J2930)By: Veronica Oquendo DO Comments: Lot:[id number]:12/2017Dose:125mgRoute:imSite:l armGiven By:NOE signed Veronica Oquendo DO Aerosol Treatment ([id number])By: Azra On: 03-Aug-2015 Veronica Pabon DO, DO, Kathleen Comments: more a/e after aerosol EKG ([id number])By: Veronica Oquendo DO On: 19-Jul-2015 Veronica Wren DO Comments: ming botello -- no new twave chg when compared to old ones Aerosol Treatment ([id number])By: Azra On: 30-Apr-2015 Intent , Veronica Jurado DO Radiology - Chest- PA and LatBy: On: 27-Apr-2015 Intent Veronica Oquendo DO, DO, Kathleen DEXA SCAN AXIAL SKELETON ([id number])By: On: 17-Apr-2015 Intent Veronica Oquendo DO, DO, Kathleen INTENSIVE BEHAVIORAL THERAPY TO On: 17-Apr-2015 Intent REDUCE CARDIOVASCULAR DISEASE RISK, INDIVIDUAL, [id number], ANNUAL, 15 MINUTES (G0446)By: Veronica Oquendo DO, DO, Kathleen FRIT-WI-HHEN BEHAVIORAL COUNSELING On: 17-Apr-2015 Intent FOR OBESITY, 15 MINUTES (G0447)By: Veronica Oquendo DO, DO, Kathleen MAMMOGRAM, SCREENING, BOTH BREAST On: 17-Apr-2015 Intent ([id number])By: Veronica Oquendo DO, DO, Kathleen EKG (09084)By: Veronica Oquendo DO On: 16-Aug-2014 Intent Veronica Oquendo DO Comments: nsr nonspecif st and t wave chg old not new Radiology - Chest- PA and LatBy: On: 15-May-2014 Intent Azra DOVeronica Azra DO, Veronica Toradol Injection, 30 mg ([id number])By: On: 12-May-2014 Intent Kassandra Fortune CNP Comments: Lot:[id number]:10/30/15Dose:30mgRoute:imSite:r hipGiven By:NOE signed Eprescribed prescriptions (G8553)By: On: 01-May-2014 Intent Veronica Oquendo DO DO, Veronica MAMMOGRAM, SCREENING, BOTH BREASTS On: 18-Apr-2014 Intent ([id number])By: Veronica Oquendo DOon DOVeronica FNOP-BI-BUIQ BEHAVIORAL COUNSELING On: 18-Apr-2014 Intent FOR OBESITY, 15 MINUTES (G0447)By: Veronica Oquendo DO Azra DO Veronica Eprescribed prescriptions (G8553)By: On: 11-Apr-2014 Intent Veronica Oquendo DO Azra DO, Veronica Pulse Oximetry ([id number])By: Azra JEAN-BAPTISTE, On: 11-Apr-2014 Intent Veronica Oquendo DO, Veronica Aerosol Treatment ([id number])By: Devika On: 27-Sep-2013 Intent BELL Dasia RESZ-CL-DGLS BEHAVIORAL COUNSELING On: 12-Sep-2013 Intent FOR OBESITY, 15 MINUTES (G0447)By: Veronica Oquendo DO Azra DO, Veronica MAMMOGRAM, SCREENING, BOTH BREASTS On: 12-Sep-2013 Intent ([id number])By: Kelsea Richards LPN DRAIN/INJECT MAJOR JOINT OR BURSA On: 24-Aug-2013 Intent ()By: Kelsea Richards LPN Comments: [id number] exp 08/13 DRAIN/INJECT MAJOR JOINT OR BURSA On: 24-Aug-2013 Intent ()By: Kelsea Richards LPN Comments: lt knee lot [id number] exp 08/13 DRAIN/INJECT MAJOR JOINT OR BURSA On: 18-Aug-2013 Intent ()By: Kelsea Richards LPN Comments: lt knee lot [id number] exp 07/13 DRAIN/INJECT MAJOR JOINT OR BURSA On: 18-Aug-2013 Intent ()By: Kelsea Richards LPN Comments: rt knee lot [id number] exp 07-13 FLU VAC, SPLIT, >3 YEARS, INTRAMUSC On: 10-Aug-2013 Intent ([id number])By: Veronica Oquendo DO Comments: lot [id number] 2013site/route L sabas, IMamt 0.5mlVIS and ABN signed when applicableSTARR Lui DO, Kathleen ADMINISTRATION OF INFLUENZA VIRUS On: 10-Aug-2013 Intent VACCINE (G0008)By: Sania Ritchie DRAIN/INJECT MAJOR JOINT OR BURSA On: 10-Aug-2013 Intent ()By: Kelsea Richards LPN Comments: euflexxa injection lt knee lot [id number] exp 07/13 DRAIN/INJECT MAJOR JOINT OR BURSA On: 10-Aug-2013 Intent ()By: Kelsea Richards LPN Comments: euflexxa injection rt knee lot [id number] exp 07/13 Solu- Medrol Injection, 125mg On: 03-Aug-2013 Intent (J2930)By: Veronica Ouqendo DO Comments: injected over Left sciatic area - most tender spot marked - no bleed pt tolerated well -- 08/03/13 lot # Veronica Oquendo DO Eprescribed prescriptions (G8553)By: On: 03-Aug-2013 Intent Sania Ritchie Kenalog Injection, 10 mgm On: 21-Jul-2013 Intent (J3301)By: Veronica Oquendo DO Comments: used 40 mglot: [id number]: 02/11site/route: RGM/IMamt: 40VIS signed when applicableSTARR Lui DO, Kathleen Nuclear Stress Test/Stress On: 21-Jul-2013 Intent SPECT/AdenosineBy: Azra JEAN-BAPTISTE, Comments: needs adenosine - bc 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 Veronica Jurado DO Echo CompleteBy: Veronica Oquendo DO On: 21-Jul-2013 Intent Veronica Oquendo DO Spirometry ([id number])By: Azra JEAN-BAPTISTE, On: 21-Jul-2013 Intent Veronica Jurado DO Comments: mild obstruction EKG ([id number])By: Veronica Oquendo DO On: 21-Jul-2013 Intent Veronica Oquendo DO Comments: nsr no acute chg - t wave inversion ant septal leads - st depression in lateral precordial leads [id number] BEHAVIORAL COUNSELING On: 21-Jul-2013 Intent FOR OBESITY, 15 MINUTES (G0447)By: Veronica Oquendo DO, DO, Kathleen Radiology - Knee - RightBy: Azra On: 21-Jul-2013 Intent Veronica JEAN-BAPTISTE DO, Kathleen Radiology - Knee - LeftBy: Azra On: 21-Jul-2013 Intent Veronica JEAN-BAPTISTE DO, Kathleen Eprescribed prescriptions ([id number])By: On: 21-Jul-2013 Intent Sania Ritchie Eprescribed prescriptions ([id number])By: On: 08-Jul-2013 Intent Veronica Oquendo DO, DO, Kathleen Solu -Medrol Injection, 125 mg On: 03-Jun-2013 Intent (J2930)By: Kassandra Fortune CNP Comments: Lot: [id number]: 12/2015Amt: 125mgRoute: IMSite: RUOQ glutealGiven by: CHONG Canas EKG ([id number])By: Veronica Oquendo DO On: 11-Apr-2013 Intent Veronica Oquendo DO Comments: nsr no acute chg the same nonspecific st flattening in v1v2 are presnet on old ekg's Spirometry (52659)By: Azra JEAN-BAPTISTE, On: 11-Apr-2013 Intent Veronica Jurado DO Comments: such poor technique cnt report a FEV Eprescribed prescriptions (G8553)By: On: 16-Sep-2012 Intent Kelsea Richards LPN FLU VAC, SPLIT, >3 YEARS, INTRAMUSC On: 02-Sep-2012 Intent ([id number])By: Veronica Oquendo DO Comments: Lot #[id number]/30/13Site-left deltoidgiven by: CHONG Patrick DO, Kathleen ADMINISTRATION OF INFLUENZA VIRUS On: 02-Sep-2012 Intent VACCINE (G0008)By: Veronica Oquendo DO, DO, Kathleen ZEAS-RH-QPCC BEHAVIORAL COUNSELING On: 02-Sep-2012 Intent FOR OBESITY, 15 MINUTES (G0447)By: Veronica Oquendo DO, DO, Kathleen SPECIMEN HNDLNG/TRNSPRT, OFFC > LAB On: 04-Aug-2012 Intent ([id number])By: Suki Gutiérrez LPN MAMMOGRAM, SCREENING, BOTH BREASTS On: 28-Jul-2012 Intent ([id number])By: Veronica Oquendo DO, DO, Kathleen EKG (94948)By: Veronica Oquendo DO On: 17-Jun-2012 Intent Veronica Oquendo DO Comments: nsr no acute chg Overnight Pulse Ox([id number])By: Mast On: 11-May-2012 Intent Suzy RUIZ Spirometry ([id number])By: Azra JEAN-BAPTISTE, On: 17-Mar-2012 Intent Veronica Jurado DO Comments: poor technique- stable -- FLU VAC, SPLIT, >3 YEARS, INTRAMUSC On: 01-Sep-2011 Intent (44992)By: Kelsea Richards LPN Comments: given at health clinic not here Eprescribed prescriptions (G8553)By: On: 29-Jul-2011 Intent Kelsea Richards LPN Ultrasound - RenalBy: Devika LUU, On: 15-Jul-2011 Intent Dasia PNEUM VAC ADLT/IMUMNOSPR, SBC/INTRM On: 09-May-2011 Intent ([id number])By: Veronica Oquendo DO, DO, Kathleen IMMUNIZ ADMNIN, 1 VAC, SNGL/COMBO On: 09-May-2011 Intent ([id number])By: Veronica Oquendo DO, DO, Kathleen DXA, BONE DENSITY, AXIAL SKELETON On: 09-May-2011 Intent ([id number])By: Kelsea Richards LPN MAMMOGRAM, SCREENING, BOTH BREASTS On: 09-May-2011 Intent ([id number])By: Kelsea Richards LPN Clinical Breast Examination On: 09-May-2011 Intent (G0101)By: Kelsea Richards LPN TDAP VACCINE >7 IM ([id number])By: Azra On: 16-Apr-2011 Veronica Pabon DO, DO, Kathleen Comments: Lot #[id number]/24/13Site-right deltoidgiven by: Alisa Vee LPN PULMONARY STRESS TEST/SIMPLE On: 04-Mar-2011 Intent (65936)By: Veronica Oquendo DO Comments: pt unable to complete fulol test due to shortess of breath. Pt completed 3 minutes of assessment. hh Veronica Oquendo DO EKG (74470)By: Veronica Oquendo DO On: 03-Mar-2011 Intent Veronica Oquendo DO Comments: nsr no acute changes Pulse Oximetry ([id number])By: Devika LUU, On: 29-Jan-2011 Intent Kassandra Vargas Solu- Medrol Injection, 125mg On: 29-Jan-2011 Intent (J2930)By: Kassandra Fortune CNP Pulse Oximetry (78804)By: Bernardo RN, On: 29-Jan-2011 Intent Suzy IMMUNIZ ADMNIN, 1 VAC, SNGL/COMBO On: 04-Sep-2010 Intent (74413)By: Lisa Blood FLU VAC, SPLIT, >3 YEARS, INTRAMUSC On: 04-Sep-2010 Intent (13516)By: Lisa Blood Comments: Lot:[id number]:02/2011Dose:0.5MLRoute:IMSite:left deltoidGiven by: VALENTINA Saleem CT - Chest (IV Contrast Needed)By: On: 20-Jun-2010 Intent Veronica Oquendo DO, DO, Kathleen Echo CompleteBy: Veronica Oquendo DO On: 20-Jun-2010 Intent Veronica Oquendo DO Radiology - ChestBy: Kassandra Fortune CNP On: 27-May-2010 Intent E Aerosol Treatment ([id number])By: Devika On: 27-May-2010 Kassandra Pabon CNP Pulse Oximetry ([id number])By: Devika LUU On: 27-May-2010 Intent Dasia Ultrasound - LiverBy: Azra JEAN-BAPTISTE, On: 07-Mar-2010 Intent Veronica Jurado DO Spirometry ([id number])By: Azra JEAN-BAPTISTE, On: 07-Mar-2010 Intent Veronica Jurado DO Comments: mild obstrucition EKG (03876)By: Veronica Oquendo DO On: 14-Dec-2009 Intent Veronica Oquendo DO Comments: nsr poor R wave progression-- will request old ekg to compare Spirometry (57678)By: Azra JEAN-BAPTISTE, On: 14-Dec-2009 Intent Veronica Jurado DO Comments: mild obstructive disease but some technique off Planned Medications INFUSION, NORMAL SALINE SOLUTION , 1000 CC Ordered: 14-Jul-2017 Pending Ciesa GEOPHYSICAL DATA TECHNICIAN, Dasia INJECTION, KETOROLAC TROMETHAMINE, PER 15 MG Ordered: 12-May-2014 Pending Ciesa GEOPHYSICAL DATA TECHNICIAN, Dasia INJECTION, KETOROLAC TROMETHAMINE, PER 15 MG Ordered: 04-Jul-2016 Pending Ciesa GEOPHYSICAL DATA TECHNICIAN, Dasia INJECTION, METHYLPREDNISOLONE SODIUM SUCCINATE, UP TO 125 MG Ordered: 29-Jan-2011 Pending Ciesa GEOPHYSICAL DATA TECHNICIAN, Dasia INJECTION, METHYLPREDNISOLONE SODIUM SUCCINATE, UP TO 125 MG Ordered: 25-Nov-2017 Pending Azra DO, Veronica Azra DO, Veronica INJECTION, METHYLPREDNISOLONE SODIUM SUCCINATE, UP TO 125 MG Ordered: 27-Oct-2017 Pending Kelsea Lund INJECTION, METHYLPREDNISOLONE SODIUM SUCCINATE, UP TO 125 MG Ordered: 14-Aug-2017 Pending Azra DO, Veronica Azra DO, Veronica INJECTION, METHYLPREDNISOLONE SODIUM SUCCINATE, UP TO 125 MG Ordered: 05-Aug-2017 Pending Azra DO, Veronica Azra DO, Veronica INJECTION, METHYLPREDNISOLONE SODIUM SUCCINATE, UP TO 125 MG Ordered: 22-Jun-2017 Pending Kelsea Lund INJECTION, METHYLPREDNISOLONE SODIUM SUCCINATE, UP TO 125 MG Ordered: 17-Apr-2017 Pending Azra DO, Veronica Azra DO, Veronica INJECTION, METHYLPREDNISOLONE SODIUM SUCCINATE, UP TO 125 MG Ordered: 20-Aug-2016 Pending Azra DO, Veronica Azra DO, Veronica INJECTION, METHYLPREDNISOLONE SODIUM SUCCINATE, UP TO 125 MG Ordered: 13-Aug-2016 Pending Ciesa GEOPHYSICAL DATA TECHNICIAN, Dasia INJECTION, METHYLPREDNISOLONE SODIUM SUCCINATE, UP TO 125 MG Ordered: 12-May-2016 Pending Azra DO, Veronica Azra DO, Veronica INJECTION, METHYLPREDNISOLONE SODIUM SUCCINATE, UP TO 125 MG Ordered: 03-Aug-2015 Pending Azra DO, Veronica Azra DO, Veronica INJECTION, METHYLPREDNISOLONE SODIUM SUCCINATE, UP TO 125 MG Ordered: 03-Aug-2013 Pending Azra DO, Veronica Azra DO, Veronica INJECTION, METHYLPREDNISOLONE SODIUM SUCCINATE, UP TO 125 MG Ordered: 03-Jun-2013 Pending Ciesa GEOPHYSICAL DATA TECHNICIAN, Dasia INJECTION, METHYLPREDNISOLONE SODIUM SUCCINATE, UP TO 125 MG Ordered: 01-Jan-2018 Pending Azra DO, Veronica Azra DO, Veronica INJECTION, METHYLPREDNISOLONE SODIUM SUCCINATE, UP TO 125 MG Ordered: 18-Aug-2018 Pending Ciesa GEOPHYSICAL DATA TECHNICIAN, Dasia INJECTION, TRIAMCINOLONE ACETONIDE, NOT OTHERWISE SPECIFIED, 10 MG Ordered: 21-Jul-2013 Pending Azra DO, Veronica Azra DO, Veronica Instructions Name Dates Details BMI 38.0-38.9,adult : Patient Instructions Indication: BMI 38.0-38.9,adult BMI 38.0-38.9,adult : How to access health information online Indication: BMI 38.0-38.9,adult BMI 38.0-38.9,adult : How to access health information online Indication: BMI 38.0-38.9,adult BMI 38.0-38.9,adult : How to access health information online Indication: BMI 38.0-38.9,adult BMI 38.0-38.9,adult : How to access health information online - Detail Indication: BMI 38.0-38.9,adult BMI 38.0-38.9,adult : Patient Instructions Indication: BMI 38.0-38.9,adult BMI 39.0-39.9,adult : How to access health information online Indication: BMI 39.0-39.9,adult BMI 39.0-39.9,adult : How to access health information online - Detail Indication: BMI 39.0-39.9,adult BMI 39.0-39.9,adult : Patient Instructions Indication: BMI 39.0-39.9,adult Nonsmoker : How to access health information online Indication: Nonsmoker Nonsmoker : How to access health information online - Detail Indication: Nonsmoker Cough : Patient Instructions Indication: Cough Diabetic autonomic neuropathy associated with type 2 diabetes mellitus : cardiovascular counseling Indication: Diabetic autonomic neuropathy associated with type 2 diabetes mellitus Nonsmoker : How to access health information online Indication: Nonsmoker Nonsmoker : How to access health information online - Detail Indication: Nonsmoker Nonsmoker : Patient Instructions Indication: Nonsmoker Nonsmoker : Patient Instructions Indication: Nonsmoker Nonsmoker : How to access health information online - Detail Indication: Nonsmoker Nonsmoker : How to access health information online Indication: Nonsmoker Nonsmoker : How to access health information online Indication: Nonsmoker Nonsmoker : How to access health information online - Detail Indication: Nonsmoker Nonsmoker : Patient Instructions Indication: Nonsmoker Nonsmoker : How to access health information online Indication: Nonsmoker Nonsmoker : How to access health information online - Detail Indication: Nonsmoker Nonsmoker : Patient Instructions Indication: Nonsmoker Nonsmoker : How to access health information online Indication: Nonsmoker Nonsmoker : How to access health information online - Detail Indication: Nonsmoker Nonsmoker : Patient Instructions Indication: Nonsmoker Nonsmoker : How to access health information online Indication: Nonsmoker Nonsmoker : How to access health information online - Detail Indication: Nonsmoker Nonsmoker : Patient Instructions Indication: Nonsmoker Nonsmoker : How to access health information online Indication: Nonsmoker Nonsmoker : How to access health information online - Detail Indication: Nonsmoker Nonsmoker : Patient Instructions Indication: Nonsmoker DM (diabetes mellitus), type 1, uncontrolled, with renal complications : How to access health information online Indication: DM (diabetes mellitus), type 1, uncontrolled, with renal complications DM (diabetes mellitus), type 1, uncontrolled, with renal complications : How to access health information online - Detail Indication: DM (diabetes mellitus), type 1, uncontrolled, with renal complications DM (diabetes mellitus), type 1, uncontrolled, with renal complications : Patient Instructions Indication: DM (diabetes mellitus), type 1, uncontrolled, with renal complications Nonsmoker : How to access health information online Indication: Nonsmoker Nonsmoker : How to access health information online - Detail Indication: Nonsmoker Cough : Patient Instructions Indication: Cough Nonsmoker : How to access health information online Indication: Nonsmoker Nonsmoker : How to access health information online - Detail Indication: Nonsmoker Nonsmoker : Patient Instructions Indication: Nonsmoker Nonsmoker : How to access health information online Indication: Nonsmoker Nonsmoker : How to access health information online - Detail Indication: Nonsmoker Sinus infection : Patient Instructions Indication: Sinus infection Nonsmoker : How to access health information online Indication: Nonsmoker Nonsmoker : How to access health information online - Detail Indication: Nonsmoker Nonsmoker : Patient Instructions Indication: Nonsmoker Nonsmoker : How to access health information online Indication: Nonsmoker Nonsmoker : How to access health information online - Detail Indication: Nonsmoker Nonsmoker : Patient Instructions Indication: Nonsmoker Nonsmoker : How to access health information online Indication: Nonsmoker Nonsmoker : How to access health information online - Detail Indication: Nonsmoker Nonsmoker : Patient Instructions Indication: Nonsmoker Nonsmoker : How to access health information online Indication: Nonsmoker Nonsmoker : How to access health information online - Detail Indication: Nonsmoker Nonsmoker : Patient Instructions Indication: Nonsmoker Nonsmoker : How to access health information online Indication: Nonsmoker Nonsmoker : How to access health information online - Detail Indication: Nonsmoker Nonsmoker : Patient Instructions Indication: Nonsmoker Gout of right foot : DISCONTINUED - RENAL FUNCTION PANEL (02536) Indication: Gout of right foot Gout of right foot : DISCONTINUED - URIC ACID BLOOD (98542) Indication: Gout of right foot Hypertension with renal disease : DISCONTINUED - MAGNESIUM (83472) Indication: Hypertension with renal disease Hypertension with renal disease : DISCONTINUED - POTASSIUM SERUM (18051) Indication: Hypertension with renal disease Diarrhea : How to access health information online Indication: Diarrhea Diarrhea : How to access health information online - Detail Indication: Diarrhea Diarrhea : Patient Instructions Indication: Diarrhea Body mass index 40.0-44.9, adult (Renamed from Body mass index (BMI) of 40.0-44.9 in adult) : How to access health information online Indication: Body mass index 40.0-44.9, adult (Renamed from Body mass index (BMI) of 40.0-44.9 in adult) Body mass index 40.0-44.9, adult (Renamed from Body mass index (BMI) of 40.0-44.9 in adult) : How to access health information online - Detail Indication: Body mass index 40.0-44.9, adult (Renamed from Body mass index (BMI) of 40.0-44.9 in adult) Body mass index 40.0-44.9, adult (Renamed from Body mass index (BMI) of 40.0-44.9 in adult) : Patient Instructions Indication: Body mass index 40.0-44.9, adult (Renamed from Body mass index (BMI) of 40.0-44.9 in adult) Body mass index 40.0-44.9, adult (Renamed from Body mass index (BMI) of 40.0-44.9 in adult) : Patient Instructions Indication: Body mass index 40.0-44.9, adult (Renamed from Body mass index (BMI) of 40.0-44.9 in adult) Body mass index 40.0-44.9, adult (Renamed from Body mass index (BMI) of 40.0-44.9 in adult) : How to access health information online Indication: Body mass index 40.0-44.9, adult (Renamed from Body mass index (BMI) of 40.0-44.9 in adult) Body mass index 40.0-44.9, adult (Renamed from Body mass index (BMI) of 40.0-44.9 in adult) : How to access health information online - Detail Indication: Body mass index 40.0-44.9, adult (Renamed from Body mass index (BMI) of 40.0-44.9 in adult) Body mass index 40.0-44.9, adult (Renamed from Body mass index (BMI) of 40.0-44.9 in adult) : How to access health information online Indication: Body mass index 40.0-44.9, adult (Renamed from Body mass index (BMI) of 40.0-44.9 in adult) Body mass index 40.0-44.9, adult (Renamed from Body mass index (BMI) of 40.0-44.9 in adult) : How to access health information online - Detail Indication: Body mass index 40.0-44.9, adult (Renamed from Body mass index (BMI) of 40.0-44.9 in adult) Body mass index 40.0-44.9, adult (Renamed from Body mass index (BMI) of 40.0-44.9 in adult) : Patient Instructions Indication: Body mass index 40.0-44.9, adult (Renamed from Body mass index (BMI) of 40.0-44.9 in adult) DM (diabetes mellitus), type 1, uncontrolled, with renal complications : How to access health information online Indication: DM (diabetes mellitus), type 1, uncontrolled, with renal complications DM (diabetes mellitus), type 1, uncontrolled, with renal complications : How to access health information online - Detail Indication: DM (diabetes mellitus), type 1, uncontrolled, with renal complications DM (diabetes mellitus), type 1, uncontrolled, with renal complications : Patient Instructions Indication: DM (diabetes mellitus), type 1, uncontrolled, with renal complications Nonsmoker : How to access health information online Indication: Nonsmoker Nonsmoker : How to access health information online - Detail Indication: Nonsmoker Nonsmoker : Patient Instructions Indication: Nonsmoker Annual Medicare Phyiscal WITHOUT abnormal findings (Renamed from Encounter for general adult medical examination without abnormal findings) : How to access health information online Indication: Annual Medicare Phyiscal WITHOUT abnormal findings (Renamed from Encounter for general adult medical examination without abnormal findings) Annual Medicare Phyiscal WITHOUT abnormal findings (Renamed from Encounter for general adult medical examination without abnormal findings) : How to access health information online - Detail Indication: Annual Medicare Phyiscal WITHOUT abnormal findings (Renamed from Encounter for general adult medical examination without abnormal findings) Annual Medicare Phyiscal WITHOUT abnormal findings (Renamed from Encounter for general adult medical examination without abnormal findings) : Patient Instructions Indication: Annual Medicare Phyiscal WITHOUT abnormal findings (Renamed from Encounter for general adult medical examination without abnormal findings) Hypertriglyceridemia : How to access health information online Indication: Hypertriglyceridemia Hypertriglyceridemia : How to access health information online - Detail Indication: Hypertriglyceridemia Hypertriglyceridemia : Patient Instructions Indication: Hypertriglyceridemia Diabetes typeII,controlled, renal comp : How to access health information online Indication: Diabetes typeII,controlled, renal comp Diabetes typeII,controlled, renal comp : How to access health information online - Detail Indication: Diabetes typeII,controlled, renal comp Diabetes typeII,controlled, renal comp : Patient Instructions Indication: Diabetes typeII,controlled, renal comp DM (diabetes mellitus), type 1, uncontrolled, with renal complications : How to access health information online Indication: DM (diabetes mellitus), type 1, uncontrolled, with renal complications DM (diabetes mellitus), type 1, uncontrolled, with renal complications : How to access health information online - Detail Indication: DM (diabetes mellitus), type 1, uncontrolled, with renal complications DM (diabetes mellitus), type 1, uncontrolled, with renal complications : Patient Instructions Indication: DM (diabetes mellitus), type 1, uncontrolled, with renal complications Abnormal chest x-ray : How to access health information online Indication: Abnormal chest x-ray Abnormal chest x-ray : How to access health information online - Detail Indication: Abnormal chest x-ray Abnormal chest x-ray : Patient Instructions Indication: Abnormal chest x-ray Hypercalcemia : Patient Instructions Indication: Hypercalcemia Diarrhea : Patient Instructions Indication: Diarrhea Hypercalcemia : How to access health information online Indication: Hypercalcemia Hypercalcemia : How to access health information online - Detail Indication: Hypercalcemia Hypercalcemia : Patient Instructions Indication: Hypercalcemia DM (diabetes mellitus), type 1, uncontrolled, with renal complications : obesity counseling Indication: DM (diabetes mellitus), type 1, uncontrolled, with renal complications Diarrhea : How to access health information online Indication: Diarrhea Diarrhea : How to access health information online - Detail Indication: Diarrhea Diarrhea : Patient Instructions Indication: Diarrhea DM (diabetes mellitus), type 1, uncontrolled, with renal complications : How to access health information online Indication: DM (diabetes mellitus), type 1, uncontrolled, with renal complications DM (diabetes mellitus), type 1, uncontrolled, with renal complications : How to access health information online - Detail Indication: DM (diabetes mellitus), type 1, uncontrolled, with renal complications DM (diabetes mellitus), type 1, uncontrolled, with renal complications : Patient Instructions Indication: DM (diabetes mellitus), type 1, uncontrolled, with renal complications DM (diabetes mellitus), type 1, uncontrolled, with renal complications : How to access health information online Indication: DM (diabetes mellitus), type 1, uncontrolled, with renal complications DM (diabetes mellitus), type 1, uncontrolled, with renal complications : How to access health information online - Detail Indication: DM (diabetes mellitus), type 1, uncontrolled, with renal complications DM (diabetes mellitus), type 1, uncontrolled, with renal complications : Patient Instructions Indication: DM (diabetes mellitus), type 1, uncontrolled, with renal complications DM (diabetes mellitus), type 1, uncontrolled, with renal complications : How to access health information online Indication: DM (diabetes mellitus), type 1, uncontrolled, with renal complications DM (diabetes mellitus), type 1, uncontrolled, with renal complications : How to access health information online - Detail Indication: DM (diabetes mellitus), type 1, uncontrolled, with renal complications DM (diabetes mellitus), type 1, uncontrolled, with renal complications : Patient Instructions Indication: DM (diabetes mellitus), type 1, uncontrolled, with renal complications Vaginal itching : Patient Instructions Indication: Vaginal itching Bronchitis : How to access health information online Indication: Bronchitis Bronchitis : How to access health information online - Detail Indication: Bronchitis Bronchitis : Patient Instructions Indication: Bronchitis Cough : How to access health information online Indication: Cough Cough : How to access health information online - Detail Indication: Cough Cough : Patient Instructions Indication: Cough Diabetes mellitus type II, controlled : How to access health information online Indication: Diabetes mellitus type II, controlled Diabetes mellitus type II, controlled : How to access health information online - Detail Indication: Diabetes mellitus type II, controlled Diabetes mellitus type II, controlled : Patient Instructions Indication: Diabetes mellitus type II, controlled Diabetes mellitus type 2, uncontrolled, without complications : How to access health information online Indication: Diabetes mellitus type 2, uncontrolled, without complications Diabetes mellitus type 2, uncontrolled, without complications : How to access health information online - Detail Indication: Diabetes mellitus type 2, uncontrolled, without complications Diabetes mellitus type 2, uncontrolled, without complications : Patient Instructions Indication: Diabetes mellitus type 2, uncontrolled, without complications Diabetes mellitus type 2, uncontrolled, without complications : How to access health information online Indication: Diabetes mellitus type 2, uncontrolled, without complications Diabetes mellitus type 2, uncontrolled, without complications : How to access health information online - Detail Indication: Diabetes mellitus type 2, uncontrolled, without complications Diabetes mellitus type 2, uncontrolled, without complications : Patient Instructions Indication: Diabetes mellitus type 2, uncontrolled, without complications Osteopenia : How to access health information online Indication: Osteopenia Osteopenia : How to access health information online - Detail Indication: Osteopenia Osteopenia : Patient Instructions Indication: Osteopenia Unspecified Diagnosis : How to access health information online Indication: Unspecified Diagnosis Unspecified Diagnosis : How to access health information online - Detail Indication: Unspecified Diagnosis Bronchitis : Patient Instructions Indication: Bronchitis Bronchitis : How to access health information online Indication: Bronchitis Bronchitis : How to access health information online - Detail Indication: Bronchitis Bronchitis : Patient Instructions Indication: Bronchitis Bronchitis : Patient Instructions Indication: Bronchitis Encounter for Medicare annual wellness exam : Patient Instructions Indication: Encounter for Medicare annual wellness exam Atrial fibrillation : cardiovascular counseling Indication: Atrial fibrillation Diabetes mellitus type II, controlled : obesity counseling Indication: Diabetes mellitus type II, controlled Diabetes mellitus type II, controlled : How to access health information online Indication: Diabetes mellitus type II, controlled Diabetes mellitus type II, controlled : How to access health information online - Detail Indication: Diabetes mellitus type II, controlled Diabetes mellitus type II, controlled : Patient Instructions Indication: Diabetes mellitus type II, controlled Heart burn : Patient Instructions Indication: Heart burn Diabetes mellitus type II, controlled : Patient Instructions Indication: Diabetes mellitus type II, controlled Abdominal pain : How to access health information online Indication: Abdominal pain Abdominal pain : How to access health information online - Detail Indication: Abdominal pain Abdominal pain : Patient Instructions Indication: Abdominal pain Hypercalcemia : Patient Instructions Indication: Hypercalcemia Hypercalcemia : Patient Instructions Indication: Hypercalcemia Knee pain, right : Patient Instructions Indication: Knee pain, right Edema : Patient Instructions Indication: Edema BMI 38.0-38.9,adult : obesity counseling Indication: BMI 38.0-38.9,adult Aspiration pneumonia : Patient Instructions Indication: Aspiration pneumonia Hypertension with renal disease : Patient Instructions Indication: Hypertension with renal disease BMI 38.0-38.9,adult : obesity counseling Indication: BMI 38.0-38.9,adult Pain in unspecified joint : Patient Instructions Indication: Pain in unspecified joint BMI 34.0-34.9,adult : obesity counseling Indication: BMI 34.0-34.9,adult Diabetes mellitus type II, controlled : Patient Instructions Indication: Diabetes mellitus type II, controlled Heart burn : Patient Instructions Indication: Heart burn Rash : Patient Instructions Indication: Rash Diabetes mellitus type II, controlled : Patient Instructions Indication: Diabetes mellitus type II, controlled BMI 34.0-34.9,adult : obesity counseling Indication: BMI 34.0-34.9,adult Diabetes mellitus type II, controlled : Patient Instructions- keep general medical appt and welcome to medicare physical Indication: Diabetes mellitus type II, controlled Encounters Office Visit On: 25-Aug-2018 9:37 Encounter Reason: Follow up acute care visit - The patient feeling better since last seen (improving however still has a couple sore spots on both feet.). Patient has been compliant with instructions. Current medication End: 25-Aug-2018 10:31 use: no side effects. Patient sleeps 7 (broken) hours per night. Impact of disease: emotional impact-mild. Nutrition: balanced diet. The medical issues the patient is following up for include asthma, bl ood sugar issues, high blood pressure and other (recheck today for gout).Encounter Diagnosis: BMI 38.0-38.9,adult, Non-smoker, Acute gout involving toe of right foot, unspecified cause [facility] Office Visit On: 18-Aug-2018 7:55 Encounter Reason: Gout - Symptoms include pain, swelling and tenderness. Symptoms are located in the right metatarsal phalangeal toe joint and right midfoot. The patient describes the pain as sharp and throbbing. Onset w End: 18-Aug-2018 8:27 as sudden. The symptoms occur constantly. Patient describes symptoms as moderate in severity. Associated symptoms include decreased weight bearing. Current treatment includes rest, ice and elevation. Note for Gout: Rt foot gout flare Encounter Diagnosis: Nonsmoker, BMI 38.0-38.9,adult, Acute gout involving toe of right foot, unspecified cause, Chronic kidney disease, stage III (moderate) (585.3) [facility] Office Visit On: 09-Aug-2018 7:59 Encounter Reason: Follow up for chronic medical issues - The patient does not feel well, has decreased energy level and is sleeping well. Patient has been compliant with instructions. Current medication use: no side effe End: 09-Aug-2018 10:23 cts and compliant with dosing regimen. Patient sleeps 6 hours per night. Nutrition: balanced diet and no supplemental vitamins & iron. The medical issues the patient is following up for include All identified problems below, blood sugar issues, cardiac issues, high blood pressure, high cholesterol, kidney problems and other. blood pressure range :, fasting blood sugars : and weight :.Encounter Diagnosis: Nonsmoker, BMI 39.0-39.9,adult, Diabetic autonomic neuropathy associated with type 2 diabetes mellitus, Need for prophylactic vaccination and inoculation against influenza (Renamed from Need for immunization against influenza), Asthma, CHRONIC KIDNEY DISEASE, STAGE IV (SEVERE) (585.4), Atrial fibrillation, Vitamin D deficiency, Hypercholesteremia, Chronic kidney disease, stage III (moderate) (585.3), Hypertension with renal disease, Sarcoidosis, GERD (gastroesophageal reflux disease) [facility] Office Visit On: 22-Jun-2018 10:44 Encounter Reason: Sinusitis - Symptoms include postnasal drainage, cheek pain, cheek pressure, forehead pain, forehead pressure, cough, ear pain and headache. Onset was gradual 1 week(s) ago. The patient describes this a End: 22-Jun-2018 11:16 s moderate in severity and worsening. Note for Sinusitis: Symptoms started about a week ago- Sinus headache, facial pressure, post nasal drainage, sore throat, nasal drainage-green, chills, upper body aches, feels lousy. No fever, SOB, CP. THinks may have gotten an infection from cpap machine. Has cleaned out machine and tubing. Has knee surgery Jul 19 and is trying to stay off predinsone. Has only taken OTC tyelnol.Encounter Diagnosis: Sinusitis, bacterial, Nonsmoker, Cough, Nasal drainage, Sinus headache, Facial pressure, BMI 39.0-39.9,adult [facility] Office Visit On: 09-Apr-2018 9:16 Encounter Reason: Annual Medicare Exam - The patient had reviewed and updated the family history, medication/s, past medical history and social history. Yes the patient did have a mini mental status exam done today. The End: 09-Apr-2018 10:30 activities of daily living the patient needs help with are housework. The patient has driven in past 6 months, put area rugs through house and put handrails in bathroom, but the patient has not had feca l incontinence, had urinary incontinence, missed or ran out of medications to soon, fallen in the past 6 months, gotten lost or has a medalert necklace or bracelet. The patient has completed the followi ng preventative measures: mammography (2016) and colonoscopy (2017). The patient does have durable power of workers compensation attorney and living will. The patient has noticed nothing from the geriatic depression scale. Other providers contributing to the patient's care are sales service promoter, belt back operator, fruit or nut farmer and other:.Encounter Diagnosis: BMI 38.0-38.9,adult, Nonsmoker, Annual Medicare Phyiscal WITHOUT abnormal findings (Renamed from Encounter for general adult medical examination without abnormal findings), Encounter for screening mammogram for breast cancer (Renamed from Encounter for screening mammogram f or malignant neoplasm of breast), Postmenopausal, Encounter for screening for malignant neoplasm of colon (Renamed from Special screening for malignant neoplasms, colon), Diabetic autonomic neuropathy associated with type 2 diabetes mellitus [facility] Office Visit On: 02-Apr-2018 7:24 Encounter Reason: Follow up for chronic medical issues - The patient feels well with minor complaints, has decreased energy level and is sleeping well. Patient has been compliant with instructions. Current medication use End: 02-Apr-2018 8:21 : no side effects and compliant with dosing regimen. Patient sleeps 6 hours per night. Nutrition: balanced diet and no supplemental vitamins & iron. The medical issues the patient is following up fo r include All identified problems below, blood sugar issues, cardiac issues, high blood pressure, high cholesterol, kidney problems and other. blood pressure range :, fasting blood sugars : and weight :.Encounter Diagnosis: BMI 38.0-38.9,adult, Nonsmoker, Diabetic autonomic neuropathy associated with type 2 diabetes mellitus, Hypercholesteremia, Atrial fibrillation, Hypertension with renal disease, Elevated uric acid in blood, Vitamin D deficiency, Muscle spasm of back, Diabetes typeII,controlled, renal comp (250.40) [facility] Office Visit On: 17-Mar-2018 8:13 Encounter Reason: forms - for diabetic shoes and insolesEncounter Diagnosis: BMI 39.0-39.9,adult, Nonsmoker, Foot deformity, right, Diabetic autonomic neuropathy associated with type 2 diabetes mellitus, Corns and callosities, End: 17-Mar-2018 9:00 DM (diabetes mellitus), type 1, uncontrolled, with renal complications [facility] Office Visit On: 19-Feb-2018 8:11 Encounter Reason: Follow up for diabetes/glucose intolerance - The patient feels well with minor complaints, has good energy level and is sleeping well. Patient has been compliant with instructions. Nutrition: balanced diet. fasting blood sugars :. End: 19-Feb-2018 9:07 Encounter Diagnosis: BMI 39.0-39.9,adult, Nonsmoker, DM (diabetes mellitus), type 1, uncontrolled, with renal complications [facility] Office Visit On: 20-Jan-2018 11:58 Encounter Reason: Follow up for diabetes/glucose intoleranceEncounter Diagnosis: BMI 40.0-44.9, adult, Nonsmoker, DM (diabetes mellitus), type 1, uncontrolled, with renal complications, Nutritional counseling, End: 20-Jan-2018 15:51 Osteoarthritis of knee, unspecified laterality, unspecified osteoarthritis type [facility] Office Visit On: 14-Jan-2018 10:03 Encounter Reason: Follow up for diabetes/glucose intolerance - The patient feels well with minor complaints, has good energy level and is sleeping well. Patient has been compliant with instructions. Nutrition: balanced diet. fasting blood sugars :. End: 14-Jan-2018 10:57 Encounter Diagnosis: BMI 40.0-44.9, adult, Nonsmoker, Hypertension, benign, Aspiration of food, sequela, DM (diabetes mellitus), type 1, uncontrolled, with renal complications [facility] Office Visit On: 01-Jan-2018 10:01 Encounter Reason: Gout - No changes in management were made at the last visit. Symptoms include pain, swelling, erythema, warmth and tenderness. The patient describes the pain as aching. Onset was sudden hour(s) ago. The End: 01-Jan-2018 11:17 re is no known event that preceded symptom onset.Encounter Diagnosis: BMI 40.0-44.9, adult, Nonsmoker, Toe pain, right, Acute gout involving toe of right foot, unspecified cause [facility] Office Visit On: 30-Dec-2017 14:03 Encounter Reason: Follow up for chronic medical issues - The patient feels well with minor complaints (better), has decreased energy level and is sleeping well. Patient has been compliant with instructions. Current medic End: 30-Dec-2017 15:10 ation use: no side effects and compliant with dosing regimen. Patient sleeps 8 hours per night. Nutrition: balanced diet and supplemental vitamins. The medical issues the patient is following up for samantha olivares All identified problems below, blood sugar issues, cardiac issues, high blood pressure and high cholesterol. fasting blood sugars :.Encounter Diagnosis: DM (diabetes mellitus), type 1, uncontrolled, with renal complications, BMI 40.0- 44.9, adult , CHRONIC KIDNEY DISEASE, STAGE IV (SEVERE) (585.4), GERD (gastroesophageal reflux disease), Atrial fibrillation, Sarcoidosis, Elevated uric acid in blood, Gout [facility] Annotation/Addendum On: 23-Dec-2017 16:47 Encounter Diagnosis: Pneumonia End: 23-Dec-2017 16:49 [facility] Office Visit On: 22-Dec-2017 13:23 Encounter Reason: Flu Like Symptoms - Onset was 5 day(s) ago. Note for Flu like symptoms: Started with cough 6 days ago, and then 4 days ago started with nausea and vomiting. Chills, low grade fever 3 days ago. Coughin End: 22-Dec-2017 15:21 g up brown, right side back pain, SOB, wheezing, nasal drainage-white, headaches, body aches, ??No CP, sore throat, ??no facial pressure or tenderness. No constipation or diarrhea, but going more freque nt. Hasn't thrown up today-last time throwing up 3 days ago. No appetite, slight dizziness when standing. Trying to drink a lot of fluids. Had a bronchoscopy at the begining of the month-had a cough, fo llowed up with Dr. Delgado on the 14 of December was put on Augmentin for only a few days.Encounter Diagnosis: BMI 40.0-44.9, adult, Nonsmoker, Flu-like symptoms, Abnormal lung sounds, Fever and chills, Cough, Pneumonia, Nausea and vomiting in adult [facility] Phone Encounter On: 01-Dec-2017 14:29 Encounter Diagnosis: Cough End: 01-Dec-2017 14:31 [facility] Phone Encounter On: 25-Nov-2017 14:19 Encounter Diagnosis: Unspecified Diagnosis End: 25-Nov-2017 14:25 [facility] Office Visit On: 25-Nov-2017 12:30 Encounter Reason: Follow up ER - Reason for hospitalization note: (asthma flare/bronchitis -- walking pneumonia???).Encounter Diagnosis: BMI 40.0-44.9, adult, Nonsmoker, Unspecified asthma with (acute) exacerbation, Aspiration of food, sequela, Cough End: 25-Nov-2017 14:14 [facility] Office Visit On: 18-Nov-2017 14:37 Encounter Reason: Follow up ER - Reason for hospitalization note: (food did not go down and it trapped in throata nd they did xrays and they say nothing is in there.). Patient has been compliant with instructions.Encounter Diagnosis: End: 18-Nov-2017 15:15 BMI 40.0-44.9, adult, Nonsmoker, Aspiration of food, initial encounter, Wheeze, Cough [facility] Phone Encounter On: 29-Oct-2017 13:15 Encounter Diagnosis: Unspecified Diagnosis End: 29-Oct-2017 13:21 [facility] Annotation/Addendum On: 28-Oct-2017 15:09 Encounter Diagnosis: Flu-like symptoms End: 28-Oct-2017 15:14 [facility] Office Visit On: 27-Oct-2017 10:36 Encounter Reason: Sinus pain - The onset of the pain has been acute and has been occurring in a persistent pattern for 3 days. The course has been constant. The pain is characterized as moderate. The symptoms have been a End: 27-Oct-2017 11:45 ssociated with eye pain (watery eyes) and tenderness over sinuses. Note for Pain: Symptoms started 3 days ago and worsening-burning in throat, facial pressure, headache, blowing yellow out, dry asthma cough, SOB, tightness in chest, wheezy, ear pressure, ?No fever or chills, earache, CP. ??Has tried salt water gargle, tylenol and nasal spray-has relieved some of the pressure.Encounter Diagnosis: BMI 40.0-44.9, adult, Sinus infection, Nonsmoker , Elevated blood pressure reading, Thrush, oral, Sore throat, Wheeze, Flu-like symptoms, Unspecified asthma with (acute) exacerbation [facility] Office Visit On: 14-Oct-2017 14:29 Encounter Reason: Pre-Op Visit - The procedure scheduled is a lt total knee on 11/30/17. The surgeon for the procedure will be Dr. Will Oliveira.Encounter Diagnosis: BMI 40.0-44.9, adult, Nonsmoker, Pre-operative examination, Hypercholesteremia, End: 14-Oct-2017 16:30 Nutritional counseling, Osteoarthritis of knee, unspecified laterality, unspecified osteoarthritis type, Chronic kidney disease, stage III (moderate) (585.3), Atrial fibrillation, Asthma, Hypertension, benign [facility] Office Visit On: 28-Aug-2017 12:50 Encounter Reason: Follow up tests - Date: (08/24/17).Encounter Diagnosis: BMI 40.0- 44.9, adult, Nonsmoker, Leukocytosis, unspecified type, Medication side effect, initial encounter, Vitamin D deficiency, End: 28-Aug-2017 14:01 CHRONIC KIDNEY DISEASE, STAGE IV (SEVERE) (585.4), Nutritional counseling, Hypercholesteremia, Acute pain of left knee, Osteoarthritis of knee, unspecified laterality, unspecified osteoarthritis type, Lipoma of skin [facility] Office Visit On: 14-Aug-2017 10:52 Encounter Reason: Cough - No changes in management were made at the last visit. Symptoms include cough, wheezing and runny nose. The cough is described as hacking, tight and wheezy. Cough onset was sudden 3 day(s) ago. O End: 14-Aug-2017 15:12 nset of cough followed cold symptoms. The cough occurs constantly.Encounter Diagnosis: BMI 40.0-44.9, adult, Nonsmoker, Bronchitis, Chest tightness, Abnormal lung sounds [facility] Office Visit On: 05-Aug-2017 14:48 Encounter Reason: Cough - No changes in management were made at the last visit. Symptoms include cough, wheezing and runny nose. The cough is described as hacking, tight and wheezy. Cough onset was sudden 3 day(s) ago. O End: 05-Aug-2017 15:53 nset of cough followed cold symptoms. The cough occurs constantly.Encounter Diagnosis: Nonsmoker, BMI 40.0-44.9, adult, Unspecified asthma with (acute) exacerbation, Bronchitis [facility] Office Visit On: 28-Jul-2017 10:18 Encounter Diagnosis: VACCINE AGAINST INFLUENZA (V04.81) End: 28-Jul-2017 12:55 [facility] Office Visit On: 28-Jul-2017 9:27 Encounter Reason: Follow up for chronic medical issues - The patient feels well with minor complaints, has good energy level and is sleeping well. Patient has been compliant with instructions. Current medication use: no End: 28-Jul-2017 10:10 side effects and compliant with dosing regimen. Patient sleeps 7 hours per night. Nutrition: balanced diet and no supplemental vitamins & iron. The medical issues the patient is following up for inc elise All identified problems below, blood sugar issues, high blood pressure and high cholesterol. blood pressure range :, fasting blood sugars : and weight :.Encounter Diagnosis: BMI 40.0-44.9, adult, Nonsmoker, DM (diabetes mellitus), type 1, uncontrolled, with renal complications, CHRONIC KIDNEY DISEASE, STAGE IV (SEVERE) (585.4), Gout, Hypercholesteremia, Hypertension with renal disease, Vitamin D deficiency, Atrial fibrillation, Sarcoidosis, Asthma [facility] Office Visit On: 21-Jul-2017 13:19 Encounter Reason: Follow up tests - Diagnostic tests include other (labs)., [ADDITIONAL REASON] Follow up acute care visit - The patient improving. Patient has been compliant w End: 21-Jul-2017 14:36 ith instructions. The medical issues the patient is following up for include other (GI). Note for Follow up acute care visit: still having pain in stomach mostly after eating but going away slowly , [ADDITIONAL REASON] Gout - Note for Gout: Unable to take gout med allopurinol because of illness with it. Awaiting [facility] to get uloric approved. Now taking black scott capsules Encounter Diagnosis: BMI 40.0-44.9, adult, Nonsmoker, Gout, CHRONIC KIDNEY DISEASE, STAGE IV (SEVERE) (585.4), Diarrhea, Gastritis [facility] Lab Order On: 15-Jul-2017 8:07 Encounter Diagnosis: Hypertension with renal disease End: 15-Jul-2017 8:09 [facility] Office Visit On: 14-Jul-2017 8:20 Encounter Reason: Diarrhea - Adult - Symptoms include diarrhea and abdominal pain. The stools are described as watery. Onset was 5 day(s) ago. The symptoms occur intermittently. Previous presentation included diarrhea and abdominal pain., End: 14-Jul-2017 11:26 [ADDITIONAL REASON] Abdominal pain - Note for Pain: Used water to make green beans and potatoes with camp water and pork chops. After eating Thursday evening 1 hr started vomiting then diarrhea. Still with diarrhea, x 2 day liquid stool. , [ADDITIONAL REASON] Gout - Note for Gout: Seen on June 21 in ER for gout given percocet, no other med for gout. Encounter Diagnosis: Nonsmoker, BMI 40.0-44.9, adult, Diarrhea, Gastroenteritis, Hypertension with renal disease, Gout of right foot, Dehydration [facility] Phone Encounter On: 10-Jul-2017 13:34 Encounter Diagnosis: Unspecified Diagnosis End: 10-Jul-2017 13:36 [facility] Office Visit On: 01-Jul-2017 13:32 Encounter Reason: Gout - No changes in management were made at the last visit.Encounter Diagnosis: Nonsmoker, Body mass index 40.0-44.9, adult (Renamed from Body mass index (BMI) of 40.0-44.9 in adult), Gout of right foot, FATIGUE, Nausea, End: 01-Jul-2017 14:22 Medication side effect, initial encounter, Medication monitoring encounter, CHRONIC KIDNEY DISEASE, STAGE IV (SEVERE) (585.4) [facility] Office Visit On: 22-Jun-2017 8:00 Encounter Reason: Follow up ER - Reason for hospitalization note: (Gout). Patient has been compliant with instructions. Current medication use: no side effects. The patient feels well with minor complaints (Gout-pain in right foot). End: 22-Jun-2017 13:54 Encounter Diagnosis: Gout of right foot, Nonsmoker, Body mass index 40.0-44.9, adult (Renamed from Body mass index (BMI) of 40.0-44.9 in adult), Right foot pain [facility] Office Visit On: 11-May-2017 13:22 Encounter Reason: Vaginal Discharge - No changes in management were made at the last visit. Symptoms include vaginal discharge, vaginal itching, vaginal burning and vaginal tenderness. The patient describes the vaginal d End: 11-May-2017 14:19 ischarge as white. Onset was sudden 4 month(s) ago. The symptoms occur intermittently. The patient describes this as moderate in severity and worsening. The patient is not currently being treated for this problem.Encounter Diagnosis: Nonsmoker, Body mass index 40.0-44.9, adult (Renamed from Body mass index (BMI) of 40.0-44.9 in adult), Candidiasis of vagina, Gout, arthropathy, DM (diabetes mellitus), type 1, uncontrolled, with renal complications [facility] Phone Encounter On: 29-Apr-2017 10:13 Encounter Diagnosis: Unspecified Diagnosis End: 29-Apr-2017 10:19 [facility] Office Visit On: 22-Apr-2017 8:37 Encounter Reason: Follow up for chronic medical issues - The patient feels well with minor complaints, has decreased energy level and is sleeping well. Patient has been compliant with instructions. Current medication use End: 22-Apr-2017 12:35 : no side effects and compliant with dosing regimen. Patient sleeps 7 hours per night. Nutrition: balanced diet and no supplemental vitamins & iron. The medical issues the patient is following up fo r include All identified problems below, blood sugar issues, high blood pressure, high cholesterol and other. blood pressure range :, fasting blood sugars : and weight :., [ADDITIONAL REASON] Follow up tests - Date: (04/13/17 labs). Encounter Diagnosis: DM (diabetes mellitus), type 1, uncontrolled, with renal complications, Nonsmoker, Body mass index 40.0-44.9, adult (Renamed from Body mass index (BMI) of 40.0-44.9 in adult), Chronic kidney disease, stage III (moderate) (585.3) , Hypertriglyceridemia, Nutritional counseling, Hypercholesteremia, Asthma, Hypertension with renal disease, Vitamin D deficiency, Atrial fibrillation, GERD (gastroesophageal reflux disease), Gout, arthropathy, Sebaceous cyst [facility] Office Visit On: 17-Apr-2017 13:04 Encounter Reason: Gout - No changes in management were made at the last visit. Symptoms include pain, swelling, erythema, warmth and tenderness. Symptoms are located in the right metatarsal phalangeal toe joint. The sandra End: 17-Apr-2017 13:54 ent describes the pain as aching. Onset was sudden 1 day(s) ago. There is no known event that preceded symptom onset. The symptoms occur frequently.Encounter Diagnosis: Body mass index 40.0-44.9, adult (Renamed from Body mass index (BMI) of 40.0-44.9 in adult), Nonsmoker, Gout, arthropathy, Toe joint pain, right, Chronic kidney disease, stage III (moderate) (585.3) [facility] Office Visit On: 06-Apr-2017 7:54 Encounter Reason: Annual Medicare Exam - The patient had reviewed and updated the family history, medication/s, past medical history and social history. Yes the patient did have ( ALert) a mini mental status exam do End: 06-Apr-2017 17:46 ne today. The activities of daily living the patient needs help with are housework, laundry and meal preparation. The patient has driven in past 6 months and put handrails in bathroom, but the patient h as not had fecal incontinence, had urinary incontinence, missed or ran out of medications to soon, fallen in the past 6 months, gotten lost, has a medalert necklace or bracelet or put area rugs through house. The patient has completed the following preventative measures: mammography (2015) and colonoscopy (Thinks 2 years ago, with Dr. Montiel). The patient does have durable power of workers compensation attorney and livin g will. The patient has noticed lack of energy. Other providers contributing to the patient's care are gastrologist, fruit or nut farmer and other: (pain management, podiatry).Encounter Diagnosis: Body mass index 40.0-44.9, adult (Renamed from Body mass index (BMI) of 40.0-44.9 in adult), Nonsmoker, Annual Medicare Phyiscal WITHOUT abnormal findings (Renamed from Encounter for general adult medical examination without abnormal findings), Encounter for screening mammogram for breast cancer (Renamed from Encounter for screening mammogram for malignant neoplasm of breast), Postmenopausal, Encounter for screening for malignant neoplasm of colon (Renamed from Special screening for malignant neoplasms, colon), Nutritional counseling, Hypercholesteremia [facility] Office Visit On: 20-Aug-2016 8:15 Encounter Reason: Follow up tests - Date: (08/18/16 blood work).Encounter Diagnosis: Vitamin D deficiency, Hypercalcemia (275.42), Candidiasis of vagina, Hypercholesteremia, Hypertriglyceridemia, Elevated white blood cell count, unspecified, End: 20-Aug-2016 9:26 Medication side effects present, initial encounter, Unspecified asthma with (acute) exacerbation, VACCINE AGAINST INFLUENZA (V04.81) [facility] Office Visit On: 13-Aug-2016 12:05 Encounter Reason: Cough - Symptoms include cough, dyspnea and wheezing. The cough is described as productive (yellow-diaz). Cough onset was gradual. The cough occurs constantly. Symptoms are described as worsening. Sympt End: 13-Aug-2016 12:38 oms are exacerbated by lying down. Previous presentation included a cough and dyspnea. Note for Cough: difficulty breathing at night with cough as well [place] and worsening respiratory symptomsEncounter Diagnosis: Cough, Unspecified asthma with (acute) exacerbation [facility] Phone Encounter On: 13-Aug-2016 10:49 Encounter Diagnosis: Diabetes typeII,controlled, renal comp (250.40), Vitamin D deficiency, Hypertension, benign, Hypercholesteremia End: 13-Aug-2016 10:52 [facility] Phone Encounter On: 25-Jul-2016 16:17 Encounter Diagnosis: Unspecified Diagnosis End: 25-Jul-2016 16:26 [facility] Office Visit On: 16-Jul-2016 9:45 Encounter Reason: Follow up for chronic medical issues - The patient feels well with minor complaints, has good energy level and is sleeping well. Patient has been compliant with instructions. Current medication use: no End: 16-Jul-2016 16:58 side effects and compliant with dosing regimen. Patient sleeps 7 hours per night. Nutrition: balanced diet and no supplemental vitamins & iron. The medical issues the patient is following up for inc lude All identified problems below, blood sugar issues, gastric reflux, high blood pressure, high cholesterol and kidney problems. blood pressure range : and weight :.Encounter Diagnosis: Chronic kidney disease, stage III (moderate) (585.3), Leg cramps (729.82), Asthma, Hypertension with renal disease, Atrial fibrillation, Hypercholesteremia, Vitamin D deficiency, Diabetes typeII,controlled, renal comp (250.40) [facility] Office Visit On: 04-Jul-2016 13:45 Encounter Reason: Knee Pain - This condition occurred following a specific injury. The injury involved the left knee. This occurred 3 day(s) ago. Symptoms include knee pain, swelling, warmth, redness, difficulty bearing End: 04-Jul-2016 14:12 weight and difficulty ambulating. Symptoms are located in the left knee. The patient describes symptoms as unchanged. Previous presentation included knee pain, swelling, warmth and redness.Encounter Diagnosis: Fall, Shoulder pain, left, Knee pain, left, Localized soft tissue swelling [facility] Office Visit On: 26-Jun-2016 7:25 Encounter Reason: Follow up for diabetes/glucose intolerance - The patient feels well with minor complaints (Still has BS issues; se of diarrhea; arm pain). Patient has been compliant with instructions. Nutrition: balanc End: 26-Jun-2016 10:07 ed diet. fasting blood sugars :, postprandial sugars : and evening sugars :.Encounter Diagnosis: DM (diabetes mellitus), type 1, uncontrolled, with renal complications, Leg cramps (729.82), Diarrhea, unspecified type, Adverse reaction to drug, initial encounter, Hypomagnesemia, Hypercalcemia (275.42), Osteopenia [facility] Office Visit On: 04-Jun-2016 12:51 Encounter Reason: Follow up tests - Date: (05/16/16 and 05/26/16)., [ADDITIONAL REASON] Follow up for diabetes/glucose intolerance - The patient does not feel well (fel End: 04-Jun-2016 13:26 l ans broke her left arm). Patient has been compliant with instructions. fasting blood sugars :, postprandial sugars : and evening sugars :. Encounter Diagnosis: Asthma, Impacted fracture, DM (diabetes mellitus), type 1, uncontrolled, with renal complications, Leg cramps (729.82) [facility] Phone Encounter On: 26-May-2016 15:24 Encounter Diagnosis: DM (diabetes mellitus), type 1, uncontrolled, with renal complications End: 26-May-2016 15:26 [facility] Office Visit On: 26-May-2016 14:02 Encounter Reason: Follow up Meds - The patient feels well with minor complaints. Patient has been compliant with instructions. Current medication use: experiencing side effects.Encounter Diagnosis: End: 26-May-2016 15:24 DM (diabetes mellitus), type 1, uncontrolled, with renal complications, Chronic kidney disease, stage III (moderate) (585.3), Hypercalcemia (275.42), Hypertension with renal disease [facility] Phone Encounter On: 19-May-2016 17:36 Encounter Diagnosis: Abnormal blood chemistry End: 19-May-2016 17:38 [facility] Office Visit On: 12-May-2016 14:20 Encounter Reason: Follow up acute care visit - The patient does not feel well. Patient has been compliant with instructions. Current medication use: no side effects and compliant with dosing regimen.Encounter Diagnosis: Diarrhea, Abnormal chest x-ray End: 12-May-2016 17:01 , Cough, Bronchitis, Abnormal lung sounds [facility] Phone Encounter On: 09-May-2016 14:07 Encounter Diagnosis: Abnormal chest x-ray End: 09-May-2016 14:08 [facility] Office Visit On: 08-May-2016 7:52 Encounter Reason: Follow up tests - Date: (05/05/16 labs).Encounter Diagnosis: Asthma, Hypercalcemia (275.42) End: 08-May-2016 8:47 [facility] Office Visit On: 06-May-2016 11:12 Encounter Reason: Upper Respiratory Infection (URI) - Symptoms include runny nose and productive cough. The patient describes this as unchanged. Associated symptoms include colored sputum (green). Presenting symptoms inc End: 06-May-2016 11:37 luded nasal congestion, facial pain and productive cough (green).Encounter Diagnosis: Diarrhea, Abdominal pain [facility] Phone Encounter On: 05-May-2016 12:53 Encounter Diagnosis: Hypercalcemia (275.42) End: 05-May-2016 14:08 [facility] Phone Encounter On: 05-May-2016 11:47 Encounter Diagnosis: Hypercalcemia (275.42) End: 05-May-2016 11:50 [facility] Phone Encounter On: 02-May-2016 15:47 Encounter Diagnosis: Hypercalcemia (275.42) End: 02-May-2016 15:49 [facility] Office Visit On: 02-May-2016 9:27 Encounter Diagnosis: Encounter for screening for malignant neoplasm of colon (Renamed from Special screening for malignant neoplasms, colon) End: 02-May-2016 9:31 [facility] Visit On: 02-May-2016 8:11 Encounter Reason: Follow up tests - Date: (discuss Ca - 04-29 and 6-).Encounter Diagnosis: Hypercalcemia (275.42), DM (diabetes mellitus), type 1, uncontrolled, with renal complications, Diarrhea End: 02-May-2016 9:23 [facility] Visit On: 21-Apr-2016 10:05 Encounter Reason: Annual Medicare Exam - The patient had reviewed and updated the family history, medication/s, past medical history and social history. Yes the patient did have () a mini mental status exam done tod End: 21-Apr-2016 13:03 ay. The activities of daily living the patient needs help with are none. The patient has driven in past 6 months and put handrails in bathroom, but the patient has not had fecal incontinence, had urinar y incontinence, missed or ran out of medications to soon, fallen in the past 6 months, gotten lost, has a medalert necklace or bracelet or put area rugs through house. The patient has completed the foll owing preventative measures: mammography (2014) and colonoscopy (2014). The patient does not have durable power of workers compensation attorney or living will. The patient has noticed nothing from the geriatic depression s angelica. Other providers contributing to the patient's care are fruit or nut farmer and other:.Encounter Diagnosis: Annual Medicare Phyiscal WITHOUT abnormal findings (Renamed from Encounter for general adult medical examination without abnormal findings), Encounter for screening mammogram for breast cancer (Renamed from Encounter for screening mammogram for malignant neoplasm of breast), Encounter for screening for malignant neoplasm of colon (Renamed from Special screening for malignant neoplasms, colon), DM (diabetes mellitus), type 1, uncontrolled, with renal complications, Body mass index 40.0-44.9, adult (Renamed from Body mass index (BMI) of 40.0- 44.9 in adult), Pneumococcal vaccination given [facility] Office Visit On: 18-Apr-2016 8:31 Encounter Reason: Abdominal pain - The onset of the pain has been sudden and has been occurring in an intermittent pattern for 2 months. The course has been recurrent. The pain is described as a moderate burning, stabbin End: 18-Apr-2016 9:52 g, crampy and dull ache. The pain is described as being located in the entire abdomen. The pain radiates to the back. The symptoms are aggravated by meals (1/2 to 1 hour after eating), walking and motio n. The symptoms have no relieving factors. The symptoms have been associated with bloating and diarrhea, while the symptoms have not been associated with abdominal distention or constipation.Encounter Diagnosis: Epigastric pain (789.06), Left lower quadrant pain, Right lower quadrant abdominal pain, Diarrhea, Hypercalcemia (275.42), Chronic kidney disease, stage III (moderate) (585.3), Hypercholesteremia [facility] Phone Encounter On: 14-Apr-2016 16:53 Encounter Diagnosis: DM (diabetes mellitus), type 1, uncontrolled, with renal complications End: 14-Apr-2016 16:54 [facility] Phone Encounter On: 14-Apr-2016 9:48 Encounter Diagnosis: Knee pain, right End: 14-Apr-2016 15:34 [facility] Office Visit On: 10-Apr-2016 12:01 Encounter Reason: Follow up for chronic medical issues - The patient feels well with minor complaints. Patient has been compliant with instructions. Current medication use: no side effects (but issues with nexium and she End: 10-Apr-2016 13:58 is wondering if the nexium is causing the renal failure) and compliant with dosing regimen. Patient sleeps 7 hours per night. Nutrition: balanced diet and supplemental vitamins. The medical issues the patient is following up for include All identified problems below, blood sugar issues, high blood pressure, high cholesterol and kidney problems. blood pressure range :, fasting blood sugars : and weight :.Encounter Diagnosis: DM (diabetes mellitus), type 1, uncontrolled, with renal complications, Unspecified osteoarthritis, unspecified site, Hypertension with renal disease, Asthma, Atrial fibrillation, Hypercholesteremia, Osteopenia, Vitamin D deficiency, Chronic kidney disease, stage III (moderate) (585.3), Sarcoidosis [facility] Office Visit On: 05-Sep-2015 14:39 Encounter Reason: Follow up Meds - The patient improving (augars in the am, 117 first day and then 109, 114 and the rest 100-105 in am fasting. During the day, 120s-170s and before was up around 150s-200s. I hav enotic End: 05-Sep-2015 15:18 ed with this, I have to watch spicy foods. Even tbinking about it churns my stomach. ).Encounter Diagnosis: DM (diabetes mellitus), type 1, uncontrolled, with renal complications [facility] Phone Encounter On: 30-Aug-2015 14:24 Encounter Diagnosis: DM (diabetes mellitus), type 1, uncontrolled, with renal complications End: 30-Aug-2015 14:37 [facility] Office Visit On: 29-Aug-2015 14:11 Encounter Reason: Diabetes Type II, Follow Up - Symptoms include polydipsia, polyuria, increased appetite and fatigue, while symptoms do not include change in vision. Hypoglycemia symptoms include sweating and shaking.Encounter Diagnosis: End: 29-Aug-2015 14:47 Diabetes type I, uncontrolled, renal comp (250.43) [facility] Annotation/Addendum On: 14-Aug-2015 11:47 Encounter Diagnosis: Vaginal itching End: 14-Aug-2015 11:50 [facility] Office Visit On: 14-Aug-2015 10:37 Encounter Reason: Candidiasis, Oral - The last clinic visit was 1 week(s) ago. Symptoms include oral pain and sores at the angles of the mouth. Onset was gradual 1 week(s) ago. Patient describes symptoms as unchanged. Sy End: 14-Aug-2015 11:30 mptoms are not exacerbated by eating or drinking fluids. Symptoms are not relieved by hydrogen peroxide rinses, chlorhexidine rinses or anesthetic rinses. Associated symptoms do not include fever, gener al malaise, symptoms of dehydration, weight loss or vaginal discharge. The patient is not currently being treated for this problem. By report there is good compliance with treatment. Previous presentati on included oral pain and sores at the angles of the mouth., [ADDITIONAL REASON] Candidiasis, Vaginal - For contraception she uses nothing. Symptoms include vagi nal itching, vaginal burning and vulvar irritation. Onset was 4 day(s) ago. The symptoms occur constantly. The episodes last for 4 days. Symptoms are not exacerbated by intercourse or tight clothing. As sociated symptoms do not include urinary frequency, urinary urgency, fever, nausea or vomiting. Previous presentation included vaginal itching, vaginal burning and vulvar irritation. This problem has not been previously treated. Encounter Diagnosis: Vitamin D deficiency, Vaginal itching, Tongue symptom [facility] Office Visit On: 09-Aug-2015 11:59 Encounter Reason: Follow up acute care visit - The patient feeling better since last seen and improving. Patient has been compliant with instructions. Current medication use: no side effects and compliant with dosing reg End: 09-Aug-2015 14:10 imen. Patient sleeps 7 hours per night. Nutrition: balanced diet.Encounter Diagnosis: Diabetes, Type II, controlled (250.00), Asthma (493.11), Bronchitis, VACCINE AGAINST INFLUENZA (V04.81) [facility] Office Visit On: 03-Aug-2015 10:59 Encounter Reason: Follow up acute care visit - The patient does not feel well. The medical issues the patient is following up for include other (bonchitis with asthma and wrosening and increased flaring).Encounter Diagnosis: Bronchitis, End: 03-Aug-2015 13:21 CHRONIC OBSTRUCTIVE ASTHMA WITH (ACUTE) EXACERBATION (493.22), Osteopenia, Diabetes, Type II, controlled (250.00) [facility] Office Visit On: 30-Jul-2015 12:00 Encounter Reason: Cold Symptoms - Onset was 4 day(s) ago.Encounter Diagnosis: Cough, ACUTE PHARYNGITIS (462.), Bronchitis, Diabetes type II,uncontrolled, no comp (250.02), Osteopenia End: 30-Jul-2015 12:53 [facility] Visit On: 19-Jul-2015 8:16 Encounter Reason: Follow up tests - Date: (07/13/15 labs)., [ADDITIONAL REASON] Follow up for chronic medical issues - The patient feels well with no complaints End: 19-Jul-2015 15:21 , has good energy level and is sleeping well. Patient has been compliant with instructions. Current medication use: no side effects. Patient sleeps 7 hours per night. Nutrition: balanced diet. The medic al issues the patient is following up for include All identified problems below, asthma, blood sugar issues, cardiac issues, gastric reflux, high blood pressure, high cholesterol and kidney problems. Encounter Diagnosis: Diabetes, Type II, controlled (250.00), Hypercholesteremia (272.0), Hypertension with Renal Disease (403.90), Vitamin D deficiency, Atrial fibrillation, Obstructive sleep apnea (327.23), Chronic kidney disease, stage III (moderate) (585.3), Asthma (493.11) [facility] Lab Order On: 05-Jul-2015 15:02 Encounter Diagnosis: Hypercholesteremia (272.0) End: 05-Jul-2015 15:03 [facility] Office Visit On: 19-Jun-2015 11:26 Encounter Reason: Follow up tests - Date: (06/07/15 labs)., [ADDITIONAL REASON] Follow up for diabetes/glucose intolerance - The patient feels well with minor c End: 19-Jun-2015 12:17 omplaints, has good energy level and is sleeping well. Patient has been compliant with instructions. Nutrition: balanced diet. fasting blood sugars :. Encounter Diagnosis: Diabetes type II,uncontrolled, no comp (250.02), FATIGUE [facility] Office Visit On: 07-Jun-2015 12:57 Encounter Reason: Follow up for diabetes/glucose intolerance - The patient does not feel well. Patient has been compliant with instructions. Nutrition: balanced diet. fasting blood sugars :.Encounter Diagnosis: End: 07-Jun-2015 13:46 Diabetes type II,uncontrolled, no comp (250.02), [facility] Office Visit On: 18-May-2015 10:09 Encounter Reason: Follow up tests - Date: (dexa 2014).Encounter Diagnosis: Osteopenia End: 18-May-2015 11:31 [facility] Office Visit On: 02-May-2015 10:22 Encounter Reason: Follow up acute care visit - The patient feeling better since last seen. Patient has been compliant with instructions. Current medication use: no side effects and compliant with dosing regimen.Encounter Diagnosis: End: 02-May-2015 17:30 Unspecified Diagnosis [facility] Office Visit On: 30-Apr-2015 9:18 Encounter Reason: Follow up acute care visit - The patient feeling better since last seen. Patient has been compliant with instructions. Current medication use: no side effects and compliant with dosing regimen.Encounter Diagnosis: Cough, End: 30-Apr-2015 10:11 Bronchitis (490), SYMPTOM, WHEEZING (786.07) [facility] Office Visit On: 27-Apr-2015 8:36 Encounter Reason: Follow up acute care visit - The patient feeling better since last seen. Patient has been compliant with instructions. Current medication use: no side effects and compliant with dosing regimen. Nutrition: balanced diet. End: 27-Apr-2015 10:06 Encounter Diagnosis: SYMPTOM, WHEEZING (786.07), Bronchitis (490), Cough, Thrush [facility] Office Visit On: 24-Apr-2015 9:42 Encounter Reason: Sinusitis/ - The duration of the symptoms are 5 days The course has been worsening. The sinusitis/ has no relieving factors. Associated features include The symptoms have been associated with cough, ear End: 24-Apr-2015 10:22 pain, nasal discharge/stuffy nose, sinus pain and teeth pain. No previous evaluations were reported.Encounter Diagnosis: Bronchitis (490), SYMPTOM, WHEEZING (786.07) [facility] Phone Encounter On: 17-Apr-2015 13:08 Encounter Diagnosis: Diabetes type II,uncontrolled, no comp (250.02), Hypercholesteremia (272.0), Vitamin D deficiency, Hypertension with Renal Disease (403.90) End: 17-Apr-2015 13:22 [facility] Office Visit On: 17-Apr-2015 9:00 Encounter Reason: Annual Medicare Exam - The patient had reviewed and updated the family history, medication/s, past medical history and social history. Yes the patient did have a mini mental status exam done today. The End: 17-Apr-2015 9:59 activities of daily living the patient needs help with are none. The patient has driven in past 6 months, but the patient has not had fecal incontinence, had urinary incontinence, missed or ran out of m edications to soon, fallen in the past 6 months, gotten lost, has a medalert necklace or bracelet, put area rugs through house or put handrails in bathroom. The patient has completed the following preve ntative measures: PAP smear (?), mammography (due this year) and colonoscopy (2013). The patient does not have durable power of workers compensation attorney or living will. The patient has noticed nothing from the geriatic depression scale. Other providers contributing to the patient's care are other: (dr ribeiro)., [ADDITIONAL REASON] Follow up for chronic medical issues - The patient feels well with minor complai nts, has decreased energy level and is sleeping well. Patient has been compliant with instructions. Current medication use: no side effects and compliant with dosing regimen. Patient sleeps 8 hours per night. Nutrition: balanced diet and supplemental vitamins. The medical issues the patient is following up for include All identified problems below, blood sugar issues, high blood pressure, high cholest mathew and other. blood pressure range :, fasting blood sugars : and weight :. Encounter Diagnosis: Breast cancer screening (V76.10), Hypercholesteremia (272.0), Chronic kidney disease, stage III (moderate) (585.3), Hypertension with Renal Disease (403.90), GERD (530.81), Allergic Rhinitis(477.9), Annual Medicare Physical (V70.0), Atrial fibrillation, Hypomagnesemia, Vitamin D deficiency, Diabetes, Type II, controlled (250.00), S/P laminectomy, Spinal stenosis, Postmenopausal [facility] Office Visit On: 23-Aug-2014 10:15 Encounter Reason: Heartburn - The last clinic visit was 3 day(s) ago. No changes in management were made at the last visit. Symptoms include pain, regurgitation and acid taste in the mouth. The pain is located in the upp End: 23-Aug-2014 17:37 er chest and substernal area. The pain radiates to the neck. The patient describes the pain as burning. There is no known event that preceded symptom onset. The symptoms occur constantly. The patient describes this as severe.Encounter Diagnosis: Dyspnea,Unspec. (786.00), Abdominal pain, Heart burn (787.1) [facility] Office Visit On: 16-Aug-2014 8:12 Encounter Reason: Follow up for chronic medical issues - The patient feels well with minor complaints, has good energy level and is sleeping well. Patient has been compliant with instructions. Current medication use: no End: 16-Aug-2014 15:11 side effects and compliant with dosing regimen. Patient sleeps 8 hours per night. Nutrition: balanced diet and no supplemental vitamins & iron. The medical issues the patient is following up for inc lude All identified problems below, blood sugar issues, high blood pressure and high cholesterol. blood pressure range :, fasting blood sugars : and weight :., [ADDITIONAL REASON] Follow up tests - Date: (05/31/14 labs). Encounter Diagnosis: Diabetes, Type II, controlled (250.00), Hypercholesteremia (272.0), Abdominal pain, Chronic kidney disease, stage III (moderate) (585.3), Hypertension with Renal Disease (403.90), Hypercalcemia (275.42) [facility] Office Visit On: 11-Aug-2014 13:34 Encounter Reason: Abdominal Pain, Female - Symptoms include abdominal pain and nausea, while symptoms do not include vomiting. The pain is located in the entire abdomen. There is no radiation. The patient describes the p End: 11-Aug-2014 14:08 ain as crampy and burning. Onset was hour(s) ago. There is no known event that preceded symptom onset. The patient describes this as worsening.Encounter Diagnosis: Abdominal pain, [place] [facility] Lab Order On: 29-Jun-2014 12:01 Encounter Diagnosis: Hypercalcemia (275.42) End: 29-Jun-2014 12:04 [facility] Office Visit On: 25-May-2014 8:54 Encounter Reason: Follow up tests - Date: (05/22/14 labs).Encounter Diagnosis: Hypercalcemia (275.42) End: 25-May-2014 9:36 [facility] Phone Encounter On: 24-May-2014 17:07 Encounter Diagnosis: Hypercalcemia (275.42) End: 24-May-2014 17:08 [facility] Office Visit On: 15-May-2014 14:19 Encounter Reason: Follow up testsEncounter Diagnosis: Edema, Chronic kidney disease, stage III (moderate) (585.3), Hypercalcemia (275.42) End: 15-May-2014 15:37 [facility] Office Visit On: 12-May-2014 9:30 Encounter Reason: Knee Pain - This condition occurred in association with a new activity (started working out with curves). Symptoms include knee pain, swelling, decreased range of motion and difficulty bearing weight. S End: 12-May-2014 11:56 ymptoms are located in the right knee. The pain radiates to the right lower leg. The patient describes the pain as sharp. Onset was 1 week(s) ago. The symptoms occur frequently. The patient describes sy mptoms as unchanged. Symptoms are exacerbated by motion at the knee and weight bearing. Current treatment includes nonsteroidal anti-inflammatory drugs.Encounter Diagnosis: SCIATICA (724.4), Knee pain, right [facility] Office Visit On: 03-May-2014 17:17 Encounter Diagnosis: Hypercholesteremia (272.0) End: 03-May-2014 17:21 [facility] Office Visit On: 01-May-2014 14:57 Encounter Reason: Edema - The last clinic visit was 2 week(s) ago. No changes in management were made at the last visit. Symptoms include edema and weight gain. The edema involves both lower extremities. There is no know End: 01-May-2014 15:42 n event that preceded symptom onset. The symptoms occur constantly. The patient describes this as severe and worsening.Encounter Diagnosis: Edema [facility] Phone Encounter On: 18-Apr-2014 10:50 [facility] End: 18-Apr-2014 10:51 Office Visit On: 18-Apr-2014 8:09 Encounter Reason: Follow up for chronic medical issues - The patient feels well with minor complaints, has decreased energy level and is sleeping well. Patient has been compliant with instructions. Current medication use End: 18-Apr-2014 10:05 : no side effects and compliant with dosing regimen. Patient sleeps 8 hours per night. Nutrition: balanced diet and no supplemental vitamins & iron. The medical issues the patient is following up fo r include All identified problems below, blood sugar issues, high blood pressure and high cholesterol. blood pressure range :, fasting blood sugars : and weight :., [ADDITIONAL REASON] Follow up tests - Date: (04/11/14 labs). Encounter Diagnosis: Diabetes, Type II, controlled (250.00), Hypercholesteremia (272.0), Chronic kidney disease, stage III (moderate) (585.3), Hypertension with Renal Disease (403.90), Annual Medicare Physical (V70.0), BMI 38.0-38.9, ADULT (V85.38), Breast cancer screening (V76.10) [facility] Office Visit On: 11-Apr-2014 8:18 Encounter Reason: Transition into care - The patient is transitioning into care from a hospital (inhaled hamburger and german rice and she was in hosp from sun till yesterday) and a summary of care was reviewed .Encounter Diagnosis: End: 11-Apr-2014 9:07 Aspiration pneumonia, SYMPTOM, WHEEZING (786.07), Breath shortness (786.05) [facility] Phone Encounter On: 09-Mar-2014 15:07 Encounter Diagnosis: Diabetes type II,uncontrolled, no comp (250.02), Hypercholesteremia (272.0), Hypertension,benign(401.1) End: 09-Mar-2014 15:09 [facility] Annotation/Addendum On: 27-Sep-2013 13:37 Encounter Diagnosis: Unspecified Diagnosis End: 27-Sep-2013 13:42 [facility] Office Visit On: 27-Sep-2013 12:59 Encounter Reason: Cough - The onset of the cough has been sudden. The cough is characterized as productive of mucoid sputum. The amount of sputum produced is scanty. The cough occurs all the time. The symptoms are aggra End: 27-Sep-2013 13:35 vated by supine posture. The symptoms have been associated with headache, hoarseness, sore throat and wheezing, while the symptoms have not been associated with fever. the color of the sputum is yellowish.Encounter Diagnosis: Cough (786.2), Bronchitis (490), SYMPTOM, WHEEZING (786.07) [facility] Office Visit On: 12-Sep-2013 12:02 Encounter Reason: Annual Medicare Exam - The patient had reviewed and updated the family history, medication/s, past medical history and social history. Yes the patient did have a mini mental status exam done today. The End: 12-Sep-2013 12:44 activities of daily living the patient needs help with are shopping for groceries, housework and laundry. The patient has driven in past 6 months and put handrails in bathroom, but the patient has not h ad fecal incontinence, had urinary incontinence, missed or ran out of medications to soon, fallen in the past 6 months, gotten lost, has a medalert necklace or bracelet or put area rugs through house. T he patient has completed the following preventative measures: PAP smear (couple of years), mammography (2 years) and colonoscopy (dont need it till 2013). The patient does not have durable power of atto rney or living will. The patient has noticed nothing from the geriatic depression scale. Other providers contributing to the patient's care are belt back operator (margaret saravia), fruit or nut farmer (dr. hayes) and other: (dr. zincdr. leedr. ashton). Encounter Diagnosis: Breast cancer screening (V76.10), Annual Medicare Physical (V70.0), Hypercholesteremia (272.0), BMI 38.0-38.9, ADULT (V85.38), Hypertension with Renal Disease (403.90) [facility] Office Visit On: 24-Aug-2013 9:29 Encounter Reason: injectionsEncounter Diagnosis: Allergic Rhinitis(477.9), Hypertension,benign(401.1), Localized, primary osteoarthritis of lower leg (715.16) End: 24-Aug-2013 17:03 [facility] Office Visit On: 18-Aug-2013 8:59 Encounter Diagnosis: Osteoarthritis, Unspecified (715.90) End: 18-Aug-2013 9:55 [facility] Annotation/Addendum On: 10-Aug-2013 11:16 Encounter Diagnosis: VACCINE AGAINST INFLUENZA (V04.81) End: 10-Aug-2013 11:17 [facility] Office Visit On: 10-Aug-2013 9:37 Encounter Diagnosis: Osteoarthritis, Unspecified (715.90) End: 10-Aug-2013 10:58 [facility] Office Visit On: 03-Aug-2013 12:50 Encounter Reason: Follow up tests - Date: (blood work, stress test and x-ray).Encounter Diagnosis: ARTHRALGIAS 719.40, Abnormal EKG(794.31), Sciatic nerve pain (724.3) End: 03-Aug-2013 16:44 [facility] Office Visit On: 21-Jul-2013 9:21 Encounter Reason: Follow up for chronic medical issues - The patient feels well with minor complaints (having pain in knees, ankles and joints), has decreased energy level and is sleeping well. Patient has been compliant End: 21-Jul-2013 12:11 with instructions. Current medication use: no side effects and compliant with dosing regimen. Patient sleeps 7 hours per night. Nutrition: balanced diet and no supplemental vitamins & iron. The med ical issues the patient is following up for include All identified problems below, blood sugar issues, high blood pressure and high cholesterol. blood pressure range :, fasting blood sugars : (average 98) and weight :., [ADDITIONAL REASON] Follow up tests - Date: (07/08/13 blood work). Encounter Diagnosis: Hypercholesteremia (272.0), Hypokalemia (276.8), GERD (530.81), Chronic kidney disease, stage III (moderate) (585.3), ASTHMA, UNSPECIFIED, WITH ACUTE EXACERBATION (493.92), Hypertension with Renal Disease (403.90), SYMPTOM, WHEEZING (786.07), Breath shortness (786.05), BMI 34.0-34.9, ADULT (V85.34), Diabetes, Type II, controlled (250.00), ARTHRALGIAS 719.40, Abnormal EKG(794.31) [facility] Office Visit On: 08-Jul-2013 13:36 Encounter Reason: Heartburn - The last clinic visit was 2 week(s) ago. No changes in management were made at the last visit. Symptoms include chest discomfort, pain and acid taste in the mouth. The pain is located in the End: 08-Jul-2013 15:09 upper chest. There is no radiation. The patient describes the pain as aching and burning. Onset was sudden. There is no known event that preceded symptom onset. The symptoms occur constantly. The patient describes this as severe. Encounter Diagnosis: Epigastric pain (789.06), Heart burn (787.1), Muscle weakness (728.87) [facility] Office Visit On: 03-Jun-2013 8:38 Encounter Reason: Skin Problems - The onset of the skin problems has been sudden and they have been occurring in a persistent pattern for hours. The course has been increasing. The problem is characterized as a rash and End: 03-Jun-2013 15:48 itching. Lesions are described as red and flat. The spots were first seen on the trunk. It spread to the trunk, the upper extremity and sites of pressure. There has been associated chills and itching, while there has been no pain. Encounter Diagnosis: Rash (782.1), Esophagitis due to drug (530.19), Foot ulcer (707.15) [facility] Phone Encounter On: 19-May-2013 9:12 Encounter Diagnosis: Hypokalemia (276.8) End: 19-May-2013 9:13 [facility] Office Visit On: 11-Apr-2013 8:13 Encounter Reason: Follow up tests - Date: (04/01/13 labs)., [ADDITIONAL REASON] Follow up for chronic medical issues - The patient feels well with minor complai End: 11-Apr-2013 9:43 nts, has decreased energy level and is sleeping well. Patient has been compliant with instructions. Current medication use: no side effects and compliant with dosing regimen. Patient sleeps 7 hours per night. Nutrition: balanced diet and no supplemental vitamins & iron. The medical issues the patient is following up for include All identified problems below, blood sugar issues, high blood pressure and high cholesterol. blood pressure range :, fasting blood sugars : and weight :. Encounter Diagnosis: Allergic Rhinitis(477.9), Diabetes type II,uncontrolled, no comp (250.02), Hypertension with Renal Disease (403.90), Chronic kidney disease, stage III (moderate) (585.3), Hypercholesteremia (272.0), GERD (530.81), Asthma (493.11), Pre-Operative Examination, Unspecified (V72.84), Obstructive sleep apnea (327.23), Hypokalemia (276.8) [facility] Phone Encounter On: 04-Apr-2013 10:21 Encounter Diagnosis: Hypertension with Renal Disease (403.90) End: 04-Apr-2013 10:54 [facility] Office Visit On: 16-Sep-2012 8:43 Encounter Reason: Follow up for chronic medical issues - The patient feels well with minor complaints, has good energy level and is sleeping well. Patient has been compliant with instructions. Current medication use: no End: 16-Sep-2012 9:43 side effects and compliant with dosing regimen. Patient sleeps 6 hours per night. Nutrition: balanced diet and supplemental vitamins. The medical issues the patient is following up for include All ident ified problems below, asthma, gastric reflux, high blood pressure and high cholesterol. blood pressure range :, fasting blood sugars : and weight :.Encounter Diagnosis: Hypercholesteremia (272.0), Hypertension with Renal Disease (403.90), GOUT NOS (274.9), GERD (530.81), Diabetes, Type II, controlled (250.00), Asthma (493.11), Chronic kidney disease, stage III (moderate) (585.3) [facility] Office Visit On: 02-Sep-2012 6:59 Encounter Reason: Annual Medicare Exam - The patient had reviewed and updated the family history, medication/s, past medical history and social history. Yes the patient did have a mini mental status exam done today. The End: 02-Sep-2012 12:48 activities of daily living the patient needs help with are shopping for groceries, housework and laundry. The patient has completed the following preventative measures: PAP smear (2010), mammography (19 10) and colonoscopy (2008). Other providers contributing to the patient's care are belt back operator (says has an appt with Dr Hammer this month at [facility] gastrologist (Michele), fruit or nut farmer (Dr Hayes) and urologist (Dr Mayes).Encounter Diagnosis: Annual Medicare Physical (V70.0), BMI 34.0-34.9, ADULT (V85.34), VACCINE AGAINST INFLUENZA (V04.81) [facility] Office Visit On: 04-Aug-2012 11:17 Encounter Reason: Sore Throat - Symptoms include sore throat, odynophagia, swollen glands and chills. The symptoms are symmetrical. There is no radiation. The patient describes the pain as burning. Onset was sudden. The End: 04-Aug-2012 11:46 patient describes this as worsening.Encounter Diagnosis: ACUTE PHARYNGITIS (462.), Viral infection, unspecified (079.99) [facility] Office Visit On: 28-Jul-2012 11:40 Encounter Reason: Follow up for diabetes/glucose intolerance - The patient feels well with minor complaints, has good energy level and is sleeping well. Patient has been compliant with instructions. Nutrition: balanced d End: 28-Jul-2012 12:36 iet. fasting blood sugars : and evening sugars :.Encounter Diagnosis: Diabetes, Type II, controlled (250.00), Atypical Nevus(238.2) [facility] Office Visit On: 23-Jun-2012 14:39 Encounter Reason: Foot Problem - This condition occurred without any known injury. Symptoms include foot pain, foot swelling, foot cramps and bunions. Symptoms are located in the left foot. Onset was sudden 1 day(s) ago. End: 23-Jun-2012 15:28 The symptoms occur constantly. The episodes last for 1 day. The patient describes symptoms as severe and worsening. Note for Foot Problem: shooting pain from first, second and third toes up to ankleEncounter Diagnosis: GOUT NOS (274.9) [facility] Office Visit On: 17-Jun-2012 9:27 Encounter Reason: Follow up for chronic medical issues - The patient feels well with minor complaints, has good energy level and is sleeping well. Patient has been compliant with instructions. Current medication use: no End: 18-Jun-2012 11:19 side effects and compliant with dosing regimen. Patient sleeps 7 hours per night. Nutrition: balanced diet and supplemental vitamins. The medical issues the patient is following up for include All ident ified problems below, asthma, blood sugar issues, high blood pressure and high cholesterol. blood pressure range :, fasting blood sugars : and weight :.Encounter Diagnosis: Diabetes, Type II, controlled (250.00), Hypercholesteremia (272.0), Hypertension with Renal Disease (403.90), Asthma (493.11), Chronic kidney disease, stage III (moderate) (585.3) [facility] Office Visit On: 21-May-2012 8:08 Encounter Reason: Follow up Meds - The patient feels well with no complaints, has decreased energy level and is sleeping poorly. Patient has been compliant with instructions. Current medication use: no side effects. Sandra End: 21-May-2012 9:16 ent sleeps 7 hours per night. Impact of disease: no overall impact. Nutrition: balanced diet.Encounter Diagnosis: Hypertension with Renal Disease (403.90), Diabetes, Type II, controlled (250.00), Asthma (493.11), Hypercholesteremia (272.0), Allergic Rhinitis(477.9), Obstructive sleep apnea (327.23) [facility] Office Visit On: 17-May-2012 14:38 [facility] End: 17-May-2012 15:17 Office Visit On: 11-May-2012 13:11 Encounter Reason: Nurse procedure visit - Reason for visit: overnight pulse oximetry.Encounter Diagnosis: Asthma (493.11), Dyspnea,Unspec. (786.00) End: 12-May-2012 7:53 [facility] Office Visit On: 27-Apr-2012 9:40 Encounter Reason: Follow up Meds - The patient feels well with minor complaints, has good energy level and is sleeping well. Patient has been compliant with instructions. Current medication use: no side effects and compl End: 27-Apr-2012 11:32 iant with dosing regimen. Patient sleeps 7 hours per night. Nutrition: balanced diet.Encounter Diagnosis: Hypertension with Renal Disease (403.90), Hypertension,benign(401.1) [facility] Office Visit On: 12-Apr-2012 8:19 Encounter Reason: Follow up Meds - The patient feels well with minor complaints, has good energy level and is sleeping well. Patient has been compliant with instructions. Current medication use: no side effects and compl End: 12-Apr-2012 9:01 iant with dosing regimen. Patient sleeps 7 hours per night. Nutrition: balanced diet and supplemental vitamins., [ADDITIONAL REASON] Follow up Hypertension - blood pressure range : (119/60's). Encounter Diagnosis: Chronic kidney disease, stage III (moderate) (585.3), Hypertension with Renal Disease (403.90) [facility] Office Visit On: 17-Mar-2012 10:10 Encounter Reason: Follow up tests - Date: (03/11/12 labs)., [ADDITIONAL REASON] Follow up for chronic medical issues - The patient feels well with minor complai End: 17-Mar-2012 16:38 nts, has good energy level and is sleeping well. Patient has been compliant with instructions. Current medication use: experiencing side effects (stomach issues with byetta) and compliant with dosing re gimen. Patient sleeps 6 hours per night. Nutrition: balanced diet and supplemental vitamins. The medical issues the patient is following up for include All identified problems below, asthma, blood sugar issues, high blood pressure and high cholesterol. blood pressure range :, fasting blood sugars : and weight :. Encounter Diagnosis: Hypertension,benign(401.1), Hypercholesteremia (272.0), Diabetes, Type II, controlled (250.00), NEPHROCALCINOSIS (275.4), SARCOIDOSIS (135.), Asthma (493.11), Chronic kidney disease, stage III (moderate) (585.3), GLAUCOMA NOS (365.9) [facility] Office Visit On: 01-Sep-2011 11:33 Encounter Reason: Follow up for chronic medical issues - The patient feels well with minor complaints, has good energy level and is sleeping well. Patient has been compliant with instructions. Current medication use: no End: 01-Sep-2011 12:25 side effects and compliant with dosing regimen. Patient sleeps 7 hours per night. Nutrition: balanced diet and supplemental vitamins. The medical issues the patient is following up for include All ident ified problems below, blood sugar issues, high blood pressure and high cholesterol. blood pressure range :, fasting blood sugars : and weight :.Encounter Diagnosis: Diabetes, Type II, controlled (250.00), VACCINE AGAINST INFLUENZA (V04.81), Hypercholesteremia (272.0), GERD (530.81), Hypertension,benign(401.1), Asthma (493.11) [facility] Office Visit On: 29-Jul-2011 10:11 Encounter Reason: Follow up tests - Diagnostic tests include ultrasound (07/18/11).Encounter Diagnosis: Allergic Rhinitis(477.9), Hypercholesteremia (272.0), Diabetes, Type II, controlled (250.00), NEPHROCALCINOSIS (275.4) End: 29-Jul-2011 10:42 [facility] Annotation/Addendum On: 16-Jul-2011 8:40 Encounter Diagnosis: Hypercalcemia (275.42) End: 16-Jul-2011 8:58 [facility] Office Visit On: 15-Jul-2011 11:21 Encounter Reason: Follow up tests - Diagnostic tests include other (Labs). Date: (07/10/11). Follow up visit with no current symptoms. There is no family history of breast cancer, cardiovascular disease, cystic fibrosis, End: 15-Jul-2011 12:32 Down's syndrome, mental retardation or myocardial infarction before age 55. Past medical history includes asthma, hypertension and other (anemia, DM, cholesterol, GERD)., [ADDITIONAL REASON] Follow up for chronic medical issues - The patient feels well with no complaints, has good energy level and is sleeping well. Patient has been compliant with instructions. Current m edication use: no side effects, compliant with dosing regimen and considered effective by patient. Patient sleeps 6 hours per night. The medical issues the patient is following up for include All identi fied problems below, asthma, blood sugar issues (DM), gastric reflux, high blood pressure and high cholesterol. Encounter Diagnosis: Asthma (493.11), Diabetes, Type II, controlled (250.00), Hypertension,benign(401.1), GERD (530.81), Hypercholesteremia (272.0), Abnormal blood chemistry (790.6) [facility] Office Visit On: 03-Jun-2011 8:35 Encounter Reason: Follow up for chronic medical issues - The patient feels well with minor complaints, has good energy level and is sleeping well. Patient has been compliant with instructions. Current medication use: no End: 03-Jun-2011 8:57 side effects and compliant with dosing regimen. Patient sleeps 6 hours per night. Nutrition: balanced diet and supplemental vitamins. The medical issues the patient is following up for include All ident ified problems below, blood sugar issues, high blood pressure, high cholesterol and other. blood pressure range :, fasting blood sugars : (104 this am) and weight :.Encounter Diagnosis: Diabetes type II,uncontrolled, no comp (250.02), Asthma (493.11), Hypercholesteremia (272.0), GERD (530.81), SARCOIDOSIS (135.), Hypertension,benign(401.1) [facility] Office Visit On: 27-May-2011 13:04 [facility] End: 27-May-2011 17:19 Office Visit On: 09-May-2011 7:52 Encounter Reason: Well Women Exam - The patient feels well with minor complaints, has good energy level and is sleeping well. Pap smear: date of last pap: (?). Contraceptive history: The patient is not using any method o End: 09-May-2011 8:51 f contraception at this time. Patient does not exercise. The patient reports that she performs monthly self breast exam. Calcium intake includes 1200 mg daily supplment. Previous evaluations: hysterecto my/bilateral salpingotomy. The patient denies the use of oral contraceptives or hormone replacement therapy.Encounter Diagnosis: Well Women (TAHBSO) (V72.31), Asthma (493.11) [facility] Phone Encounter On: 29-Apr-2011 13:06 Encounter Diagnosis: Diabetes type II,uncontrolled, no comp (250.02) End: 29-Apr-2011 13:10 [facility] Office Visit On: 16-Apr-2011 8:19 Encounter Reason: Follow up Hypertension - The symptoms have been associated with family history of hypertension and obesity, while the symptoms have not been associated with anxiety or excessive caffeine intake. blood p End: 16-Apr-2011 9:53 ressure range : (120 to 130/70 to 60)., [ADDITIONAL REASON] Follow up for diabetes/glucose intolerance - The patient feels well with minor complaints, has good energy level and is sleeping well. Patient has been compliant with instructions. Nutrition: balanced diet. fasting blood sugars :. Encounter Diagnosis: Diabetes type II,uncontrolled, no comp (250.02), Hypertension,benign(401.1), Constipation(564.00) [facility] Office Visit On: 26-Mar-2011 8:17 Encounter Reason: Follow up Hypertension, [ADDITIONAL REASON] Follow up for diabetes/glucose intolerance - The patient feels well with minor complaints. Patient has been compliant with instructions. Nutrition: balanced diet. fasting blood sugars :. End: 26-Mar-2011 9:07 Encounter Diagnosis: Diabetes type II,uncontrolled, no comp (250.02), Hypertension,benign(401.1) [facility] Phone Encounter On: 05-Mar-2011 17:53 Encounter Diagnosis: Unspecified Diagnosis End: 06-Mar-2011 6:57 [facility] Office Visit On: 04-Mar-2011 11:18 Encounter Diagnosis: Asthma (493.11), Dyspnea,Unspec. (786.00) End: 05-Mar-2011 8:50 [facility] Office Visit On: 03-Mar-2011 8:17 Encounter Reason: Follow up for chronic medical issues - The patient feels well with minor complaints, has decreased energy level and is sleeping poorly. Patient has been compliant with instructions. Current medication u End: 03-Mar-2011 9:35 se: no side effects and compliant with dosing regimen. Patient sleeps 6 hours per night. Nutrition: inappropriate diet and supplemental vitamins. The medical issues the patient is following up for inclu de All identified problems below, blood sugar issues, high blood pressure and high cholesterol. fasting blood sugars : (249) and weight :., [ADDITIONAL REASON] Follow up, Laboratory Test Results - Date: (02/25/11). Encounter Diagnosis: Allergic Rhinitis(477.9), arthritis,unspecified (716.90), Asthma (493.11), Hypertension,benign(401.1), GERD (530.81), Hypercholesteremia (272.0), Diabetes type II,uncontrolled, no comp (250.02), SYMPTOM, EDEMA (782.3) [facility] Office Visit On: 29-Jan-2011 8:27 Encounter Reason: Sinus pain - The onset of the pain has been acute and has been occurring in an intermittent pattern for 4 months (off and on for the last 4 mos.). The course has been recurrent and increasing in severit End: 29-Jan-2011 9:15 y. The pain is characterized as a pressure sensation. The pain is described as being located in the entire head.Encounter Diagnosis: SYMPTOM, WHEEZING (786.07), Acute sinusitis, unspecified (461.9), Allergic rhinitis due to other allergen (477.8), ASTHMA, UNSPECIFIED, WITH ACUTE EXACERBATION (493.92), Cough (786.2) [facility] Office Visit On: 04-Sep-2010 7:58 Encounter Reason: Injections - The medication the patient is here to receive is other (influenza). Encounter Diagnosis: VACCINE AGAINST INFLUENZA (V04.81) End: 04-Sep-2010 9:56 [facility] Office Visit On: 07-Aug-2010 9:47 Encounter Reason: Follow up for chronic medical issues - The patient feels well with minor complaints ,has good energy level and is sleeping well. Patient has been compliant with instructions. Current medication use: no End: 07-Aug-2010 12:43 side effects and compliant with dosing regimen. Patient sleeps 6 hours per night. Nutrition: balanced diet and supplemental vitamins. The medical issues the patient is following up for include All ident ified problems below ,blood sugar issues ,high blood pressure and high cholesterol. blood pressure range : and fasting blood sugars :. Encounter Diagnosis: Diabetes, Type II, controlled (250.00), Hypertension,benign(401.1), Hypercholesteremia (272.0) , GERD (530.81), arthritis,unspecified (716.90), Asthma (493.11) [facility] Office Visit On: 20-Jun-2010 7:06 Encounter Reason: Follow up, Laboratory Test Results - Date: (06-17-10). , [ADDITIONAL REASON] Upper Respiratory Infection (URI) - The last clinic visit was week(s) ago. No ch End: 20-Jun-2010 7:54 anges in management were made at the last visit. Symptoms include nasal congestion and productive cough. Encounter Diagnosis: Cardiomegaly (429.3), SYMPTOM, EDEMA (782.3), Dyspnea,Unspec. (786.00), Diabetes, Type II, controlled (250.00), SARCOIDOSIS (135.), CHRONIC OBSTRUCTIVE ASTHMA WITH (ACUTE) EXACERBATION (493.22) [facility] Office Visit On: 11-Jun-2010 8:17 Encounter Reason: Follow up acute care visit - The patient does not feel well and has decreased energy level. Patient has been compliant with instructions. Current medication use: no side effects ,compliant with dosing r End: 11-Jun-2010 10:30 egimen and considered effective by patient. Patient sleeps 6 hours per night. Nutrition: balanced diet. The medical issues the patient is following up for include All identified problems below and other (pneumonia d/t aspiration). Encounter Diagnosis: PNEUMONITIS DUE TO FOOD/VOMIT INHALATION (507.0), Diabetes, Type II, controlled (250.00), SARCOIDOSIS (135.), Asthma (493.11), SYMPTOM, EDEMA (782.3), Dyspnea,Unspec. (786.00), Weight gain (783.1) [facility] Phone Encounter On: 27-May-2010 18:12 [facility] End: 27-May-2010 18:13 Office Visit On: 27-May-2010 9:59 Encounter Reason: Follow up ER - Reason for hospitalization note: (aspirated a piece of corn and maybe a piece apple. Hospital said that the corn was stuck in her trachea, triaged but not seen by a physician advised back End: 27-May-2010 11:08 to er if a fever developed.). Patient has been compliant with instructions. , [ADDITIONAL REASON] Follow up, Laboratory Test Results - Date: (05/22/10). Encounter Diagnosis: PNEUMONITIS DUE TO FOOD/VOMIT INHALATION (507.0), Leg cramps (729.82) [facility] Office Visit On: 22-May-2010 9:45 Encounter Reason: Calf pain - The onset of the pain has been variable and has been occurring in an intermittent pattern for 2 weeks. The course has been recurrent (comes and goes but most of the time I have the cramp.). End: 22-May-2010 10:12 The pain is described as severe. The symptoms hot weather. The symptoms have no relieving factors. Encounter Diagnosis: Leg cramps (729.82), ANEMIA NOS (285.9) [facility] Office Visit On: 07-Mar-2010 9:34 Encounter Reason: Follow up for chronic medical issues - The patient feels well with minor complaints ,has decreased energy level and is sleeping well. Patient has been compliant with instructions. Current medication use End: 07-Mar-2010 15:26 : no side effects and compliant with dosing regimen. Patient sleeps 7 hours per night. Nutrition: balanced diet and supplemental vitamins. The medical issues the patient is following up for include All identified problems below ,blood sugar issues ,high blood pressure and high cholesterol. blood pressure range :. Encounter Diagnosis: Diabetes, Type II, controlled (250.00), Hypertension,benign(401.1), Hypercholesteremia (272.0), Abdominal Pain,RUQ(789.01), CHRONIC OBSTRUCTIVE ASTHMA WITH (ACUTE) EXACERBATION (493.22), Allergic Rhinitis(477.9), GERD (530.81), Constipation(564.00), arthritis,unspecified (716.90) [facility] Office Visit On: 22-Jan-2010 8:00 Encounter Reason: Heartburn - The onset of the heartburn has been sudden and has been occurring in a persistent pattern for 2 days. The course has been constant. The heartburn is characterized as burning. The heartburn i End: 22-Jan-2010 9:36 s described as being located in the retrosternal area ,upper epigastrium and epigastrium. The heartburn does not radiate. The symptoms are aggravated by large meals. The symptoms have no relieving facto rs. The symptoms have been associated with indigestion ,nausea and use of medications, while the symptoms have not been associated with abdominal pain ,dysphagia or flatulence. Encounter Diagnosis: GERD (530.81), Epigastric pain (789.06) [facility] Office Visit On: 21-Dec-2009 11:35 Encounter Reason: Follow up, Laboratory Test Results - Date: (12/14/09). Encounter Diagnosis: Hypercholesteremia (272.0), Leukocytosis (288.8) End: 21-Dec-2009 12:22 [facility] Office Visit On: 14-Dec-2009 10:53 Encounter Reason: new patient female physical - Last seen between 1-3 months ago. General health: feels well with minor complaints ,has good energy level and is sleeping well. The patient's appetite is normal. Nutrition: End: 14-Dec-2009 13:34 normal/adequate. Exercises 3 days per week. Sleeps on average 7 hours per night. Normal bowel and bladder habits. Safety measures include appropriate use of safety belts and home smoke detectors. There are no current emotional problems. screening, mammography (?) and screening, Pap smear (? had hyster in her latwe 30's). Encounter Diagnosis: Hypertension,benign(401.1), Diabetes, Type II, controlled (250.00), Asthma (493.11), GERD (530.81), Allergic Rhinitis(477.9) [facility] Payers MedicareTRICARE FOR LIFE, [employer] Ling; a guarantor
--- OUTSIDE RECORDS SUMMARY | 2018-12-08 05:22 | XMS RPT_ITS | Continuity of Care Document ---
:1950 Author Organization [facility] Address [address] [facility] [address] [place] [address] Phone Care Team Providers Name Role Phone Veronica Oquendo DO Unavailable Octavio Delgado Unavailable Nghia Bautista MD Unavailable Lobito Kauffman DO Unavailable Derrell Palumbo Unavailable Unavailable Messenger, DRAMATIC ARTS HISTORIAN Kelsea Unavailable Unavailable Stephanie Rodriguez Unavailable Unavailable SlaClarisse barbosa LPN Unavailable Unavailable Joaquina Stanton Unavailable Unavailable Unavailable [...] occurred s/p surgery - saw cardio [place] had stress test and it was normal [...] after 2weeksdriving to see Dr Ribeiro in [place] Status: Active CHRONIC OBSTRUCTIVE ASTHMA WITH (ACUTE) [...] uric acid in blood (E79.0, 790.6) Comments: - ulouric -- cont-2018 currently on urlic and uric acid level 5.6 Status: Active Elevated white blood cell count, [...] Active 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, 403.90) Comments: goal per kidney specialist dr Ribeiro is <140/90 consistently Status: Active Hypertriglyceridemia (E78.1, 272.1) Comments: worse-- [...] Active Obstructive sleep apnea, adult (G47.33, 327.23) Comments: wears cpap mask-- sibila Status: Active Osteoarthritis of knee, unspecified laterality, [...] spring 2014 Status: Active Sarcoidosis (D86.9, 135) Comments: stable and in remission --Sibila Status: Active Sciatic nerve pain (M54.30, 724.3) [...] VACCINE AGAINST INFLUENZA (Z23, V04.81) Comments: Lot:4799FExp:05/17/18Amt:0.5mlRoute:IMSite: L DltdGiven By: ANTOINE Ibrahim signed Status: Active [...] days Quantity: 3 {Box} Refills: 3 Ordered:25-Nov-2017 Johnathon DOWNEYNElizabeth Start : 25-Nov-2017 Active FreeStyle Test In [...] Active Comments:PRN Levemir 100 UNIT/ML Subcutaneous Solution 25 units qd for 0 days Quantity: 1 {Vial} Refills: 0 Ordered:08-Nov-2018 Cade Oquendo DO, DO, Kathleen Start : 08-Nov-2018 Active Comments:new dose Levemir 100 UNIT/ML Subcutaneous Solution 25 units qd for 0 days Quantity: 3 {Vial} Refills: 0 Ordered:08-Nov-2018 Cade Oquendo DO, DO, Kathleen Start : 08-Nov-2018 Active Comments:new dose Maxzide-25 37.5-25 MG Oral Tablet 1 (one) Tablet qd for 90 days Quantity: 90 {Tablet} Refills: 3 Ordered:25-Aug-2018 Cade Oquendo DO, DO, Kathleen Start : 25-Aug-2018 Active MiraLax Oral Packet 1 (one) Packet 17 g daily for 90 days Quantity: 90 {Packet} Refills: 3 Ordered:25-Aug-2018 Cade Oquendo DO, DO, Kathleen Start : 25-Aug-2018 Active [place] 5-325 MG Oral Tablet 1 (one) Tablet 1-2 tablets q 4 hours prn for 0 days Quantity: 7 {Tablet} Refills: 0 Ordered:09-Aug-2018 Cade Oquendo DO, DO, Kathleen Start : 09-Aug-2018 Active Comments:Dr Will Oliveira managing Pantoprazole Sodium 40 MG Oral Tablet Delayed Release 1 (one) Tablet DR bid for 90 days Quantity: 90 {Tablet} Refills: 3 Ordered:25-Aug-2018 Cade Oquendo DO, DO, Kathleen Start : 25-Aug-2018 Active Pen Ava /16 31G X 5 MM Miscellaneous 1 (one) [...] days Quantity: 90 {Capsule} Refills: 3 Ordered:19-Aug-2018 Azra DOCade DO Veronica Start : 19-Aug-2018 Active Uloric 40 MG Oral Tablet 1 (one) Tablet qd for 0 days Quantity: 90 {Tablet} Refills: 3 Ordered:15-Sep-2018 Azra JEAN-BAPTISTECade DO Veronica Start : 15-Sep-2018 Active Comments:pt cant take allopurinol bc of [...] days Quantity: 7 {Capsule} Refills: 0 Ordered:14-Jul-2017 Devika LUU Kassandra Vargas Start : 14-Jul-2017 End : 21-Jul-2017 Inactive [...] bedtime for 10 days Refills: 0 Ordered:03-Jun-2013 Devika LUU Dasia Start : 03-Jun-2013 End : 13-Jun-2013 Inactive CELEBREX, 200MG (Oral Capsule) 1 (one) Capsule Capsule daily for 0 days Quantity: 21 {Capsule} Refills: 0 Ordered:16-Aug-2014 Kelsea Richards LPN Start : 12-May-2014 End : 16-Aug-2014 Inactive Cipro 500 MG Oral Tablet 1 (one) Tablet bid for 7 days Quantity: 14 {Tablet} Refills: 0 Ordered:14-Jul-2017 Devika LUU Dasai Start : 14-Jul-2017 End : 21-Jul-2017 Inactive [...] End : 10-Apr-2016 Inactive VITAMIN D (ERGOCALCIFEROL), 14815AAHS (Oral Capsule) 1 (one) Capsule daily for 30 days Quantity: 30 {Capsule} Refills: 0 Ordered:08-Oct-2015 Devika LUU Dasia Start : 14-Aug-2015 End : 13-Sep-2015 Inactive [...] Discontinued Comments:Dispense mini needles CALCIUM + D, [phone]-MG-IU (PO Cap) 2 qd for 0 days [...] days Quantity: 90 {Tablet} Refills: 3 Ordered:26-Mar-2011 aCde Oquendo DO, DO, Kathleen Start : 26-Mar-2011 [...] days Quantity: 3 {Package} Refills: 0 Ordered:14-Aug-2015 Slarb Jaycob SCHWARZa Start : 03-Aug-2015 End : 14-Aug-2015 Discontinued [...] days Quantity: 60 {Tablet} Refills: 3 Ordered:04-Jul-2016 Kylierb CHONG Clarisse Start : 04-Jun-2016 End : 04-Jul-2016 Discontinued NORVASC, 5MG (Oral Tablet) 1 Tablet qd for 0 days Quantity: 90 {Tablet} Refills: 3 Ordered:15-May-2014 Cade Oquendo DO, DO, Kathleen Start : 15-May-2014 End : 15-May-2014 Discontinued Comments:edema NUCYNTA, 50MG (Oral Tablet) 1 (one) Tablet q 6 hrs prn for 30 days Quantity: 90 {Tablet} Refills: 0 Ordered:14-Aug-2015 Slarb CHONG Clarisse Start : 17-Apr-2015 End : 14-Aug-2015 Discontinued [...] left knee 06/19/18 Completed 20-May-2018 Comments: dr marianne wilcox ortho Date Value Details 26-Oct-2018 Lumbar Spine 2 or 3 Views Result: Comments: See Note; NOTES: [facility] Imaging Services [address] [place] [address] Lumbar Spine 2 or 3 Views MR#: [id number] Acct: [id number] Name: SUGEY LING Rep #: [id number] : 1950 F 67 From: Dwight Choudhury DO PCP: Veronica Oquendo DO Status: REG CLI Study: Lumbar Spine 2 or 3 Views Date of Exam: 10/26/18 Exam# [id number] Ordering Dr: Chetan Medina MD STUDY: X-RA Y - LUMBAR SPINE REASON FOR EXAM: Female, 67 years old. Low back pain TECHNIQUE: 3 view(s) of the lumbar spine were obtained. COMPARISON: 06/09/2017 FINDINGS: Norm al lumbar lordosis. Slight levoscoliosis. There is a normal alignment of the vertebrae. Stable postsurgical fixation of L4-S1. There is multilevel endplate spondylosis of the lumbar vertebrae. There is multi-level degenerative disc disease with multi-level disc space narrowing. There is no demonstrated fracture. The soft tissue structures are unremarkable. RAD/Lumbar Spine 2 or 3 Views IMPRESSION: Postsurgical and degenerative changes of the lumbar spine; slightly advanced as compared to 2017 exam Electronically Signed: Dwight Choudhury DO 2017 at 11:37 EST Tel , Service support , CC: Chetan Medina MD; Veronica Oquendo DO Forensic Accountant: Signed 22-May-2018 Orthopedic Visit Report Result: Comments: See Note; NOTES: [facility] Orthopaedics AND Sports Medicine [address] [place] [address] OFFICE VISIT Date of Service: 05/11/18 MR#: [id number] Acct: [id number] Name: SUGEY LING Rep #: [id number] : 1950 Provider: Tia Chirinos MD Age/Sex: 67/F Location: [facility] Status: Signed Intake Intake Visit Reasons: LOW [...] [History Confirmed 01/07/18] Fluticasone 0.05% [Flonase Nasal [place]] 1 spray NASAL DAILY 06/21/17 [History Confirmed 01/07/18] Fluticasone/Salmeterol [Advair 500/50 Mcg Diskus] 1 puff INHALATION BID 06/21/17 [History Confirmed 01/08/18] Furosemide [Lasix] 40 mg PO DAILY PRN PRN 06/21/17 [History Confirmed 01/07/18] Insulin Detemir [Levemir (BKC)] 24 units SC QHS 06/21/17 [History Con firmed 01/08/18] [place]-3S/Dha/Epa/Fish Oil [Fish Oil 1,200 mg Softgel] 1 ea PO DAILY 06/21/17 [History Confirmed 01/07/18] Pantoprazole Sodium [Protonix] 40 mg PO BID 06/21/17 [History Confirmed 8] Tiotropium [place] [Spiriva Respimat] 2 puff IH DAILY 06/21/17 [History Confirmed 01/08/18] Tramadol HCl [Ultram] 50 mg PO BID 06/21/17 [History Confirmed 01/07/18] Albuterol Inhaler [Ventolin Hfa (S P)] 1 - 2 puff INHALATION Q4H PRN PRN 12/04/17 [History Confirmed 01/08/18] Sour Scott Extract [Tart Scott Extract] 1,000 mg PO DAILY 01/07/18 [History Confirmed 01/07/18] PFSH Social History Smoki ng Status: Former smoker [...] nothin g. 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 adobe ball mixer who would not clear her for a [...] (CAD), BILAT Result: Comments: See Note; NOTES: [facility] Imaging Services [address] [place] [address] SCREENING MAMM (CAD), BILAT MR#: [id number] Acct: [id number] Name: SUGEY LING Rep #: [id number] : 1950 F 67 From: Anam Larios MD PCP: Veronica Oquendo DO Status: [facility] Study: SCREENING MAMM (CAD), BILAT Date of Exam: 05/20/18 Exam# [id number] Ordering Dr: Veronica Oquendo MAMMOGRAPHY - BILATERAL SCREENING REASON FOR EXAM: [...] delay biopsy of a clinically suspicious abnormality. [id number] Electronically Signed: Anam Larios MD at 7:57 EDT Tel [phone], Service jolly pport , CC: Veronica Oquendo DO Forensic Accountant: Signed 29-Jan-2018 Modified Barium Swallow Study Result: Comments: See Note; NOTES: [facility] Speech Pathology [address] [place] [address] Modified Barium Swallow Study MR#: [id number] Acct: [id number] Name: SUGEY LING Rep #: [id number] : 1950 67 From: Eliezer Duke M.A., CFY-RESERVATIONS SALES SUPERVISOR PRIMARY / SECONDARY DIAGNOSIS: dysphagia (R13.10) REFERRING [...] Patien t inhaled pieces of hamburger and Panamanian rice. 04/26/2014 underwent bronchoscopy with bronchial lavage and foreign body removal after aspirating rice during intake of hamburger and Panamanian rice. 2017 CT/Chest revealed old granulomatous disease; no acute pulmonary abnormality; resolution of the right lower lobe infiltrate seen on the prior CT. 12/31/2017 CXR revealed cardiomegaly; pectus excavat um deformity; no acute abnormality is seen. 01/08/2018 underwent bronchoscopy with bronchial lavage and foreign body removal after aspirating rice during intake of Arabic food with resulting pneumoniti s of both food and emesis with bronchospasm, documentation reveals history of esophageal strictures with plans for noodle maker referral for possible esophageal dilatation. Patient reports [...] Thin liquids via cup (single sip): 1 [place] thickened liquids via cup (single sip) : 1 [place] thickened liquids via cup (single sip): 2 [place] thickened liquids via cup (single sip): 1 [...] l functioning, with workup currently underway via noodle maker. Patient able to comprehend and express recommended [...] 1520 <Electronically signed by Eliezer Duke M.A., CFY-RESERVATIONS SALES SUPERVISOR> Date Eliezer Duke M.A. CFY-RESERVATIONS SALES SUPERVISOR Co-Signature Required for all Medicare patients Date/Time Co-Signature CC: 29-Jan-2018 Swallowing Function w/Video Result: Comments: See Note; NOTES: [facility] Imaging Services [address] [place] [address] Swallowing Function w/Video MR#: [id number] Acct: [id number] Name: SUGEY LING Rep #: [id number] : 1950 F 67 From: Anam Larios MD PCP: Veronica Oquendo DO Status: REG CL Study: Swallowing Function w/Video Date of Exam: 01/29/18 Exam# [id number] Ordering Dr: Isaías Stroud MD STUDY: SWALLOWING [...] Anam Larios MD at 14:25 EST Tel [phone], Service support , CC: Veronica Stroud Forensic Accountant: Signed 30-Dec-2017 Chest PA and Lateral Result: Comments: See Note; NOTES: [facility] Imaging Services [address] [place] [address] Chest PA and Lateral MR#: [id number] Acct: [id number] Name: SUGEY LING Rep #: [id number] : 1950 F 67 From: Anam Larios MD PCP: Veronica Oquendo DO Status: REG CLI Study: Chest PA and Lateral Date of Exam: 12/30/17 Exam# [id number] Ordering Dr: Octavio Delgado MD STUDY: X- [...] Anam Larios MD at 12:54 EST Tel [phone], Service support , CC: Veronica Oquendo DO; Octavio Delgado MD Forensic Accountant: Signed 22-Dec-2017 Chest PA and Lateral Result: Comments: See Note; NOTES: [facility] Imaging Services [address] [place] [address] Chest PA and Lateral MR#: [id number] Acct: [id number] Name: SUGEY LING Rep #: [id number] : 1950 F 67 From: Ronnie Bradford MD PCP: Veronica Oquendo DO Status: REG CLI Study: Chest PA and Lateral Date of Exam: 12/22/17 Exam# [id number] Ordering Dr: Kelsea Lund SENIOR LEAD DEVELOPER-C STUDY: X-RAY C HEST REASON FOR EXAM: [...] , CC: NAKIA Lund; Veronica Oquendo DO Forensic Accountant: Signed 04-Dec-2017 Chest without Contrast Result: Comments: See Note; NOTES: [facility] Imaging Services [address] [place] [address] Chest without Contrast MR#: [id number] Acct: [id number] Name: SUGEY LING Rep #: [id number] : 1950 F 67 From: Rogelio Alston DO PCP: Veronica Oquendo DO Status: REG CLI Study: Chest without Contrast Date of Exam: 12/04/17 Exam# [id number] Ordering Dr: Octavio Delgado MD STUDY: CT [...] Rogelio Alston DO at 13:14 EST Tel [phone], Service support , CC: Veronica Oquendo DO; Octavio Delgado MD Forensic Accountant: Signed 17-Nov-2017 Emergency Department Summary Result: Comments: See Note; NOTES: [facility] Medical Records Department [address] [place] [address] Emergency Department Summary 11/16/17 1811 MR#: [id number] Acct: [id number] Name: SUGEY LING Rep #: [id number] : 1950 66 From: Lobito Lee MD [...] a prednisone taper and sees a pul prototype deicer assembler. I believe that she should continue her [...] Aspiration event This note was generated with [employer] dictation software. It may contain incorrect words, spelling, and punctuation that were not noted in review of the chart prior to signing ED Disposition - Plan for ED Patient: Disposition: Home or As sisted Living Chief Complaint: Shortness of Breath Diagnosis: Aspiration into airway Instructions: Dysphagia: Exercises, ED Choking Spell Referrals: Veronica Oquedno, [Primary Care Provider] - 5-7 Da ys What to do if you have Problems For any increased pain, shortness of breath, bleeding, nausea or vomiting, chest pain, or any unexpected problems, contact your Primary Care Provider. Call [facility] ([phone]) or report to the closest Emergency Room. Call 911 if necessary. 11/17/17 0054 <Electronically signed by Lobito Lee MD> Date Lobito Lee MD Cosigner Signature (If Indicated): Date CC: Veronica Oquendo DO 16-Nov-2017 Chest PA and Lateral Result: Comments: See Note; NOTES: [facility] Imaging Services [address] [place] [address] Chest PA and Lateral MR#: [id number] Acct: [id number] Name: SUGEY LING Devin Rep #: [id number] : 1950 F 66 From: Ivone Guevara MD PCP: Veronica Oquendo DO Status: [facility] ER Study: Chest PA and Lateral Date of Exam: 11/16/17 Exam# [id number] Ordering Dr: Lobito Lee MD STUDY: X-RAY [...] Fax CC: Veronica Oquendo DO; Lobito Lee Forensic Accountant: Signed 09-Oct-2017 Chest PA and Lateral Result: Comments: See Note; NOTES: [facility] Imaging Services [address] [place] [address] Chest PA and Lateral MR#: [id number] Acct: [id number] Name: SUGEY LING Rep #: [id number] : 1950 F 66 From: Anam Larios MD PCP: Veronica Oquendo DO Status: [facility] CLI Study: Chest PA and Lateral Date of Exam: 10/09/17 Exam# [id number] Ordering Dr: Will Oliveira MD STUDY: X-RAY [...] Anam Larios MD at 15:14 EST Tel [phone], Service support , CC: Veronica Oquendo DO; Will Oliveira MD Forensic Accountant: Signed 15-Jul-2017 PT D/C Summary (1) Result: Comments: See Note; NOTES: [facility] Physical Therapy [facility] [address] [place] [address]. [address] [place] [id number] Fax [facility]ILIT[facility] EMERGENCY DEPARTMENT SUMMARY MR#: [id number] Acct: [id number] Name: SUGEY LING Rep #: [id number] : 1950 66 From: Nghia Willis PT, Cert. MDT, OCS Referring Dr.: Chetan Medina MD Status: REG RCR [facility] [employer] HP - PT D/C Summary It has [...] therapy, please feel free to yamilka l me at [phone]. Thank you for the referral of this patient. Sincerely, Nghia Willis, PT, <Electronically signed by Nghia Willis PT, Cert. MDT, OCS> 07/15/17816 CC: Chetan Medina MD; Veronica Oquendo DO WENCESLAO Signed 11-Jul-2017 Emergency Department Summary Result: Comments: See Note; NOTES: [facility] Medical Records Department [address] [place] [address] Emergency Department Summary 06/21/17 0738 MR#: [id number] Acct: [id number] Name: SUGEY LING Rep #: [id number] : 1950 66 From: Rufino Vela MD [...] ED Arthritis Gout Prescriptions: Hydrocodone Bitart/Apap 5-325 [[place] 5/325] 1 - 2 tablet PO Q4H PRN PRN #7 tablet PRN Reason: Pain Referrals: Veronica Oquendo, DO [Primary Care Provider] - What to do if you have Problems For any increased pain, shortness of breath, bleeding, na usea or vomiting, chest pain, or any unexpected problems, contact your Primary Care Provider. Call [facility] ([phone]) or report to the closest Emergency Room. Call 911 if necessary. 07/11 0903 <Electronically signed by Rufino Vela MD> Date Rufino Vela MD Cosigner Signature (If Indicated): Date ___ CC: Veronica Oquendo DO 21-Jun-2017 Discharge Instruction Result: Comments: See Note; NOTES: [facility] Medical Records Department [address] [place] [address] Discharge Instruction 06/21/17739 MR#: [id number] Acct: [id number] Name: Sissy LING GALou A Rep #: [id number] : 1950 66 From: Rufino Vela MD PCP: Veronica Oquendo DO Status: REG ER ED Disposition - Plan for ED Patient: Chief Complaint: Lower Extremity Injury Instruction s: ED Arthritis Gout Prescriptions: Hydrocodone Bitart/Apap 5-325 [[place] 5/325] 1 - 2 tablet PO Q4H PRN PRN #7 tablet PRN Reason: Pain Referrals: Veronica Oquendo DO [Primary Care Provider] - What to do if you have Problems For any increased pain, shortness of breath, bleeding, nausea or vomiting, chest pain, or any unexpected problems, contact your Primary Care Provider. Call [facility] ([phone]) or report to the closest Emergency Room. Call 911 if necessary. 06/21/1742 <Electronically signed by Rufino Vela MD> Date Rufino Vela MD Cosigner Signature (If Indicated): Date CC: Veronica Oquendo DO 19-Jun-2017 Re-Evaluation - PT (1) Result: Comments: See Note; NOTES: [facility] Physical Therapy [facility] [address] [place] [address] Fax REEVALUATION / MEDICARE RECERTLei Aldrich 4d PHYSICAL THERAPY MR#: [id number] Acct: [id number] Name: SUGEY LING Rep #: [id number] : 1950 66 From: Nghia Willis PT, [...] Weeks Goal Progress: Progressing Goal 5:: Pa lashawnnt will be able to sleep at least [...] do not hesitate to contact me at [phone] by phone or if you have questions or concerns regarding this new plan of care! Sincerely, Nghia Willis PT, <Electronically signed by Nghia Willis PT, Cert. T, [facility]> 06/19/17 1533 CC: Chetan Medina MD; Veronica flowers DO WENCESLAO Signed For Medicare only, by signing this I certify the plan of care. Physicians Signature Date 09-Jun-2017 L/S Spine Comp/w Bending Views Result: Comments: See Note; NOTES: [facility] Imaging Services [address] [place] [address] Verd[place] 4d L/S Spine Comp/w Bending Views MR#: [id number] Acct: [id number] Name: DAVE LING Rep #: [id number] : 1950 F 66 From: Ronnie Bradford MD PCP: Veronica Oquendo DO Status: REG CLI Study: L/S Spine Comp/w Bending Views Date of Exam: 06/09/17 Exam# [id number] Ordering Dr: Alicia Chirinos MD STUDY: X-RAY [...] CC: Tia Chirinos M.D.; Veronica Oquendo DO Forensic Accountant: Signed 26-May-2017 Re-Evaluation - PT (1) Result: Comments: See Note; NOTES: [facility] Physical Therapy [facility] [address] [place] [address]. [address] [place] [address] Fax [facility] 4d PHYSICAL THERAPY MR#: [id number] Acct: [id number] Name: HORTENSIASUGEY Devin Rep #: [id number] : 1950 66 From: Nghia Willis PT, [...] do not hesitate to contact me at [phone] by phone or if you have questions or concerns regardin g this new plan of care! Sincerely, Nghia Willis PT, <Electronically signed by Nghia Willis PT, Cert. MDT, OCS> 05/26/17 1440 CC: Chetan Medina MD; Veronica Oquendo DO DD: JLA Signed For Medicare only, by signing this I certify the plan of care. Physicians Signature Date 12-May-2017 Dexa Bone Density Study (HP) Result: Comments: See Note; NOTES: [facility] Imaging Services [address] [place] [address] Verdatony 4d Dexa Bone Density Study (HP) MR#: [id number] Acct: [id number] Name: SUGEY LING Rep #: [id number] : 1950 F 66 From: Anam Larios MD PCP: Azra DO,Veronica Status: REG CLI Study: Dexa Bone Density Study (HP) Date of Exam: 05/12/17 Exam# [id number] Ordering Dr: Veronica Bridges DO STUDY: DUAL [...] Anam Larios MD at 12:45 EDT Tel [phone], Service support , CC: Veronica Oquendo DO Forensic Accountant: Signed 12-May-2017 SCREENING MAMM (CAD), BILAT Result: Comments: See Note; NOTES: [facility] Imaging Services [address] [place] [address] Verdana 4d SCREENING MAMM (CAD), BILAT MR#: [id number] Acct: [id number] Name: SUGEY LING Rep #: [id number] : 1950 F 66 From: Royce Phipps MD PCP: Veronica Oquendo DO Status: REG CLI Study: SCREENING MAMM (CAD), BILAT Date of Exam: 05/12/17 Exam# [id number] Ordering Dr: Bren Oquendo DO MAMMOGRAPHY - [...] delay biopsy of a clinically suspicious abnormality. [id number] Electronically Signed: Royce Phipps MD at 13:24 EDT Tel , Service support [phone], CC: Veronica Oquendo DO Forensic Accountant: Signed 30-Apr-2017 Inital Evaluation (1) - PT Result: Comments: See Note; NOTES: [facility] Physical Therapy [address] [place], [place] [address] Fax REHABILITATION SERVICES INITIAL EVALUATION MR#: [id number] Acct: [id number] Name: SUGEY LING Rep #: [id number] [...] to be FAXED BACK to us at [phone] for Medicare purposes. Please let me know if there are questions or concerns rega rding this plan of care. Physician Signature: Date: <Electronically signed by Nghia Willis PT, Cert. T, OCS> 04/30/17 7971 CC: Chetan Medina MD; Veronica Oquendo DO KERRIA Signed For Medicare only, by signing this I certify the plan of care. Physicians Signature Date 24-Apr-2017 Spine Lumbar (Routine) Result: Comments: See Note; NOTES: [facility] Imaging Services [address] [place] [address] [facility] 4d Spine Lumbar (Routine) MR#: [id number] Acct: [id number] Name: SUGEY LING Rep #: [id number] : 1950 F 66 From: Ronnie Bradford MD PCP: Veronica Oquendo DO Status: REG CLI Study: Spine Lumbar (Routine) Date of Exam: 04/24/17 Exam# [id number] Ordering Dr: Chetan Medina MD [facility]: MRI LUMBAR SPINE WITHOUT CONTRAST REASON FOR [...] CC: Chetan Medina MD; Veronica Oquendo DO Forensic Accountant: Signed 15-Apr-2017 Hips B/L min 2 views w/ Pelvis Result: Comments: See Note; NOTES: [facility] Imaging Services [address] [place] [address] Verd[place] 4d Hips B/L min 2 views w/ Pelvis MR#: [id number] Acct: [id number] Name: DAVE LING Rep #: [id number] : 1950 F 66 From: Jeremiah Ramos MD PCP: Veronica Oquendo DO Status: REG CLI Study: Hips B/L min 2 views w/ Pelvis Date of Exam: 04/15/17 Exam# [id number] Ordering Dr: Chetan Hubbard MD STUDY: X-RAY [...] CC: Chetan Medina MD; Veronica Oquendo DO Forensic Accountant: Signed 16-Jul-2016 Spirometry (49518) Result: 16-Jul-2016 ELECTROCARDIOGRAM, COMPLETE (ECG) (66303) Comments: no new chg cmpared to last ekg Result: [MEASUREMENTS ANALYSIS] Date of Test: 07/16/2016 11:05:02; Heart Rate: 69; ME Interval: 144; QRS: 104; QT Interval: 394; Corrected QT Interval (QTc): 409; P Wave [place]: 56; QRS Wave [place]: 55; T Wave [place] : 90; Blood Pressure: 122/78 [ECG DIAGNOSTIC STATEMENTS] Date of Test: 07/16/2016 11:05:02; Summary: Sinus Rhythm Low voltage in limb leads. - Negative T- waves -Possible Anterior ischemia. ABNORMAL 04-Jul-2016 Knee 4 or More Views Result: Comments: See Note; NOTES: [facility] Imaging Services [address] [place] [address] Ver[place] 4d Knee 4 or More Views MR#: [id number] Acct: [id number] Name: SUGEY LING Rep # : [id number] : 1950 F 65 From: Ivone Guevara MD PCP: Veronica Oquendo DO Status: REG CLI Study: Knee 4 or More Views Date of Exam: 07/04/16 Exam# [id number] Ordering Dr: Kassandra Fortune STUDY: X-RAY - [...] at 16:23 EDT Tel , Service support [phone], CC: Kassandra Fortune; Veronica Oquendo DO Forensic Accountant: Signed 03-Jun-2016 Emergency Department Summary Result: Comments: See Note; NOTES: [facility] Medical Records Department [address] [place] [address] Emergency Department Summary MR#: [id number] Acct: [id number] Name: SUGEY LING Rep #: [id number] : 1950 65 From: Ronaldo Verduzco MD [...] CARE PHYSICIAN: Veronica Oquendo DO ORTHOPEDIST: Will Oliveria M.D. PHYSICAL EXAM INATION: VITAL SIGNS: Unremarkable. [...] and swathe. Referral to Dr. Will Oliveira. Ronaldo Verduzco MD C C: Veronica Reeder MD T: NTS JOB: [id number] 06/03/16 1307 <Electronically signed by Ronaldo Verduzco MD> Date Ronaldo Verduzco MD Cosigner Signature (If Indicated): Date CC: Veronica Oquendo DO; Will Oliveira MD Date Dictated: 06/03/16 1232 Date Transcribed: 06/03/16 123 Forensic Accountant: Signed 03-Jun-2016 Discharge Instruction Result: Comments: See Note; NOTES: [facility] Medical Records Department [address] [place] [address] Discharge Instruction 06/03/16 1230 MR#: [id number] Acct: [id number] Name: SUGEY LING Rep #: [id number] : 1950 65 From: Ronaldo Verduzco MD PCP: Veronica Oquendo DO Status: REG ER ED Disposition - Plan for ED Patient: Disposition: Home or Assisted Living C [facility] Complaint: Fall Instructions: ED Fracture, [...] any unexpected problems, contact your doctor. Call [facility] ([phone]) or report to the closest Emergency Room. Call 911 if necessary. 06/03/16 1234 <El ectronically signed by Ronaldo Verduzco MD> Date Ronaldo Verduzco MD Cosigner Signature (If Indicated): Date CC: Veronica Oquendo DO 03-Jun-2016 Shoulder min 2 Views Result: Comments: See Note; NOTES: [facility] Imaging Services [address] [address] Verdana 4d Shoulder min 2 Views MR#: [id number] Acct: [id number] Name: SUGEY LING Rep #: [id number] : 1950 F 65 From: Anam Larios MD PCP: Veronica Oquendo DO Status: REG ER Study: Shoulder min 2 Views Date of Exam: 06/03/16 Exam# [id number] Ordering Dr: Ronaldo Verduzco MD STUDY: X-RAY [...] Anam Larios MD at 12:42 EDT Tel [phone], Service support [phone], RAD/Shoulder min 2 Views IMPRESSION: I suspect a nondisplaced impacted fracture of the surgical neck of the humerus. Electronically Signed: Anam rinaldi MD at 12:42 EDT Tel [phone], Service support [phone], CC: Veronica Oquendo DO; Ronaldo Verduzco MD Forensic Accountant: Signed 13-May-2016 L/S Spine Min 4 Views Result: Comments: See Note; NOTES: [facility] Imaging Services [address] [place] [address] Verdana 4d L/S Spine Min 4 Views MR#: [id number] Acct: [id number] Name: SUGEY LING Rep #: [id number] : 1950 F 65 From: Anam Larios MD PCP: Veronica Oquendo DO Status: REG CLI Study: L/S Spine Min 4 Views Date of Exam: 05/13/16 Exam# [id number] Ordering Dr: Chetan Luo MD STUDY: X-RAY [...] Anam Larios MD at 8:31 EDT Tel [phone], Service support [phone], RAD/L/S Spine Min 4 Views IMPRESSION: Status post laminectomy and fusion at the L4-L5 and L5-S1 levels with prosthetic disc insertion. Grade 2 anterior listhesis of L5 on S1. Electron ically Signed: Anam Larios MD at 8:31 EDT Tel [phone], Service support [phone], CC: Chetan Medina MD; Veronica Oquedno DO Forensic Accountant: Signed 13-May-2016 Chest WITH Contrast Result: Comments: See Note; NOTES: [facility] Imaging Services [address] [place] [address] Verdana 4d Chest WITH Contrast MR#: [id number] Acct: [id number] Name: KECIASissy [facility] A Rep #: [id number] : 1950 F 65 From: Anam Larios MD PCP: Veronica Oquendo DO Status: REG CLI Study: Chest WITH Contrast Date of Exam: 05/13/16 Exam# [id number] Ordering Dr: Veronica Oquendo DO STUDY: CT [...] Anam Larios MD at 8:42 EDT Tel [phone], Service support , CC: Veronica Oquendo DO Forensic Accountant: Signed 09-May-2016 Bilat Scrn Digital AND CAD Result: Comments: See Note; NOTES: [facility] Imaging Services [address] [place] [address] Verdana 4d Bilat Scrn Digital AND CAD MR#: [id number] Acct: [id number] Name: HORTENSIASUGEY Devin Rep #: [id number] : 1950 F 65 From: Anam Larios MD PCP: Veronica Oquendo DO Status: REG CLI Study: Bilat Scrn Digital AND CAD Date of Exam: 05/09/16 Exam# [id number] Order ing Dr: Veronica Oquendo DO MAMMOGRAPHY - BILATERAL SCREENING REASON FOR EXAM: Female, 65 years old. Routine annual screening examination. PERTINENT HISTORY: Non-contributory. TECHNIQUE: Digi julius bilateral breast tomosynthesis (3-D mammographic acquisition) [...] delay biopsy of a clinically suspicious abnormality. [id number] Electronically Signed: Anam Larios MD at 10:46 EDT Tel [phone], rvice support [phone], CC: Veronica Oquendo DO Forensic Accountant: Signed 09-May-2016 Chest PA and Lateral Result: Comments: See Note; NOTES: [facility] Imaging Services [address] [place] [address] Verdana 4d Chest PA and Lateral MR#: [id number] Acct: [id number] Name: SUGEY LING Rep #: [id number] : 1950 F 65 From: Anam Larios MD PCP: Veronica Oquendo DO Status: [facility] CLI Study: Chest PA and Lateral Date of Exam: 05/09/16 Exam# [id number] Ordering Dr: Veronica Davidson DO STUDY: X-RAY [...] Anam Larios MD at 9:41 EDT Tel [phone], Service support [phone], RAD/Chest PA and Lateral IMPRESSION: Focal area of increased markings in the right midlung. Followup is recommended. Electronically Signed: Anam Larios MD at 9:41 EDT Tel [phone], Service support [phone], CC: Veronica Oquendo DO Forensic Accountant: Signed 15-Apr-2016 Knee 4 or More Views Result: Comments: See Note; NOTES: [facility] Imaging Services [address] [place] [address] Verdana 4d Knee 4 or More Views MR#: [id number] Acct: [id number] Name: SUGEY LING Rep #: [id number] : 1950 F 65 From: Royce Phipps MD PCP: Veronica Oquendo DO Status: REG CLI Study: Knee 4 or More Views Date of Exam: 04/15/16 Exam# [id number] Ordering Dr: Tad Oquendo DO STUDY: X-RAY [...] 10:30 EDT Tel , Servic e support [phone], RAD/Knee 4 or More Views IMPRESSION: Degenerative arthrosis. Electronically Signed: Royce Phipps MD at 10:30 EDT Tel , Service support [phone], CC: Veronica Oquendo DO Forensic Accountant: Signed 15-Apr-2016 Knee 4 or More Views Result: Comments: See Note; NOTES: [facility] Imaging Services [address] [place] [address] Verdana 4d Knee 4 or More Views MR#: [id number] Acct: [id number] Name: SUGEY LING Rep #: [id number] : 1950 F 65 From: Royce Phipps MD PCP: Veronica Oquendo DO Status: REG CLI Study: Knee 4 or More Views Date of Exam: 04/15/16 Exam# [id number] Ordering Dr: Tad Oquendo DO STUDY: X-RAY [...] 10:39 EDT Tel , Ser vice support [phone], RAD/Knee 4 or More Views IMPRESSION: Degenerative arthrosis. Electronically Signed: Royce Phipps MD at 10:39 EDT Te l , Service support [phone], CC: Veronica Oquendo DO Forensic Accountant: Signed 30-Jul-2015 Spirometry (94123) Result: 19-Jul-2015 Spirometry (23314) Comments: mild obstruction - asx Result: 08-May-2015 Bilat Scrn Digital AND CAD Result: Comments: See Note; NOTES: [facility] Imaging Services [address] [place] [address] Breast Imaging Report MR#: [id number] Acct: [id number] Name: SUGEY LING Rep #: [id number] : 1950 F 64 From: Anam Larios MD PCP: Veronica Oquendo DO Status: REG CLI Study: Bilat Scrn Digital AND CAD Date of Exam: 05/08/15 Exam# [id number] Ordering Dr: Pippa Oquendo DO MAMMOGRAPHY - [...] Jj Larios MD at 10:50 EDT Tel [phone], Service support [phone], CC: Veronica Oquendo DO Forensic Accountant: Signed 08-May-2015 Dexa Bone Density Study (HP) Result: Comments: See Note; NOTES: [facility] Imaging Services [address] [place] [address] Bone Density Report MR#: [id number] Acct: [id number] Name: SUGEY ILNG Rep #: [id number] : 1950 F 64 From: Anam Larios MD PCP: Veronica Oquendo DO Status: REG CLI Study: Dexa Bone Density Study () Date of Exam: 05/08/15 Exam# [id number] Ordering Dr: Pippa Oquendo DO STUDY: DUAL [...] Anam Larios MD at 15:32 EDT Tel [phone], Service support [phone], CC: Veronica Oquendo DO Forensic Accountant: Signed 27-Apr-2015 Chest PA and Lateral Result: Comments: See Note; NOTES: [facility] Imaging Services [address] [place] [address] Radiology Report MR#: [id number] Acct: [id number] Name: SUGEY LING Rep #: [id number] : 1950 F 64 From: Lilian Dominguez MD PCP: Veronica Oquendo DO Status: REG CLI Study: Chest PA and Lateral Date of Exam: 04/27/15 Exam# [id number] Ordering Dr: Veronica Oquendo DO STUDY : [...] MD at 22:33 EDT , Service support [phone], RAD/Chest PA and Lateral IMPRESSION: No acute cardiopulmonary findings or changes. Mild hyper expansion and stable mild chronic lung changes. Stigmata of prior granulomatous disease. Atherosclerosis. Demineralized osseous structures and dextroscoliosis. Electronically Signed: Lilian Dominguez MD at 22:33 EDT , Service support [phone], CC: Veronica Oquendo DO Forensic Accountant: Signed 31-May-2014 Foot min 3 Views Result: Comments: See Note; NOTES: [facility] Imaging Services [address] [place] [address] Radiology Report MR#: [id number] Acct: [id number] Name: SUGEY LING Rep #: [id number] : 1950 F 63 From: Celso Guerrero DO PCP: Veronica Oquendo DO Status: REG CLI Study: Foot min 3 Views Date of Exam: 05/31/14 Exam# [id number] Ordering Dr: Jade Benson MD STUDY: X-RAY [...] at 9:32 EDT Tel , Service support [phone], CC: Veronica Oquendo DO; Jade Benson MD Forensic Accountant: Signed 31-May-2014 Foot min 3 Views Result: Comments: See Note; NOTES: [facility] Imaging Services [address] [place] [address] Radiology Report MR#: [id number] Acct: [id number] Name: SUGEY LING Rep #: [id number] : 1950 F 63 From: Celso Guerrero DO PCP: Veronica Oquendo DO Status: REG CLI Study: Foot min 3 Views Date of Exam: 05/31/14 Exam# [id number] Ordering Dr: Jade Benson MD STUDY: X-RAY [...] No acute fracture demonstrated. Electronically Signed: Ashok Gonzalze DO at 9:34 EDT , Service support [phone], CC: Veronica Oquendo DO; Jade Benson MD Forensic Accountant: Signed 31-May-2014 Hand Min 3 Views Result: Comments: See Note; NOTES: [facility] Imaging Services [address] [place] [address] Radiology Report MR#: [id number] Acct: [id number] Name: SUGEY LING Rep #: [id number] : 1950 F 63 From: Celso Guerrero DO PCP: Veronica Oquendo DO Status: REG CLI Study: Hand Min 3 Views Date of Exam: 05/31/14 Exam# [id number] Ordering Dr: Jade Benson MD STUDY: X-RAY [...] DO at 9:42 EDT , Service support [phone], CC: Veronica Oquendo DO; Jade Benson MD Forensic Accountant: Signed 31-May-2014 Hand Min 3 Views Result: Comments: See Note; NOTES: [facility] Imaging Services [address] [place] [address] Radiology Report MR#: [id number] Acct: [id number] Name: SUGEY LING Rep #: [id number] : 1950 F 63 From: Celso Guerrero DO PCP: Veronica Oquendo DO Status: REG CLI Study: Hand Min 3 Views Date of Exam: 05/31/14 Exam# [id number] Ordering Dr: Jade Benson MD STUDY: X-RAY [...] at 9:43 EDT , Servic e support [phone], RAD/Hand Min 3 Views IMPRESSION: Osteopenia with degenerative changes. No acute fracture demonstrated. Electronically Signed: Ashok keith DO at 9:43 EDT , Service support [phone], CC: Veronica Oquendo DO; Jade Benson MD Forensic Accountant: Signed 19-May-2014 Chest PA and Lateral Result: Comments: See Note; NOTES: [facility] Imaging Services [address] [place], [place] [address] Radiology Report MR#: [id number] Acct: [id number] Name: SUGEY LING Rep #: [id number] : 1950 F 63 From: Marciano Fountain MD PCP: Status: REG CLI Study: Chest PA and Lateral Date of Exam: 05/19/14 Exam# [id number] Ordering Dr: Veronica Oquendo DO STUDY: X-RAY [...] MD at 5:44 EDT , Service support [phone], CC: eVronica Oquendo DO Forensic Accountant: Signed 18-Apr-2014 EKG (14245) Comments: nsr no acute chg Result: [MEASUREMENTS ANALYSIS] Date of Test: 04/18/2014 09:33:28; Heart Rate: 72; ME Interval: 148; QRS: 108; QT Interval: 392; Corrected QT Interval (QTc): 413; P Wave [place]: 63; QRS Wave [place]: 59; T Wave [place] : 66; Blood Pressure: 138/62 [ECG DIAGNOSTIC STATEMENTS] Date of Test: 04/18/2014 09:33:28; Summary: Sinus Rhythm Low voltage in limb leads. - Negative precordial T-waves. ABNORMAL 16-Sep-2013 Bilat Scrn Digital & CAD Result: Comments: See Note; NOTES: [facility] Imaging Services [address] [place] [address] Breast Imaging Report MR#: [id number] Acct: [id number] Name: SUGEY LING Rep #: [id number] : 1950 F 62 From: Anam Larios MD PCP: Veronica Oquendo DO Status: REG CLI Exam# [id number] Ordering Dr: Veronica Oquendo DO MAMMOGRAPHY - BILATERAL [...] September 16, 2013 at 9:43:10 AM EDT [phone] Electronically Signed GP/GP If you are the referring physician and would like to consult with the radiologist who provided this interpretation, please contact Anam Webb i, M.D. at [phone]. If this radiologist is unavailable, you will be directed to another radiologist to assist. If you are a patient with a question regarding this report, please contact your re ferring physician directly. Professional Interpretation Provided By: [employer], Phone , These documents contain legally protected [...] of these documents. CC: Veronica Oquendo DO Forensic Accountant: Signed Family History Unknown Family Member Name [...] smoker Vital Signs Date Test Result Details :23 Pulse 74 /min Comments: Pattern: Regular Respiration Rate 17 /min Comments: Pattern: Unlabored O2 SAT 95 % Comments: Room air BP Systolic 142 mm[Hg] Comments: Patient Position: Sitting; Cuff Location: Left Arm; Cuff Size: Standard BP Diastolic 80 mm[Hg] Comments: Patient Position: Sitting; Cuff Location: Left Arm; Cuff Size: Standard Weight 202.375 lb Height 60 in Body Mass Index Calculated 39.52 kg/m2 Body Surface Area Calculated 1.88 m2 :47 Temperature 96.8 f Comments: Method: Temporal [...] kg/m2 Body Surface Area Calculated 1.85 m2 85-Ygl-888832:51 Temperature 98.4 f Comments: Method: Tympanic Respiration [...] Surface Area Calculated 1.86 m2 :39 Comments: [facility] and had a glaucoma test donehearing wnl Pulse 84 /min Comments: Pattern: Regular Respiration [...] kg/m2 Body Surface Area Calculated 1.9 m2 :16 Pulse 84 /min Comments: Pattern: Regular Respiration [...] kg/m2 Body Surface Area Calculated 1.89 m2 87-Vul-944840:17 Comments: [facility] and had a glaucoma test donehearing wn Pulse 78 /min Comments: Pattern: Regular Respiration [...] kg/m2 Body Surface Area Calculated 1.9 m2 77-Xaq-879997:20 Comments: 138/70 2nd bp Pulse 96 /min [...] kg/m2 Body Surface Area Calculated 1.9 m2 :22 Pulse 79 /min Comments: Pattern: Regular Respiration [...] Area Calculated 1.85 m2 :02 Comments: hearing dede Mcfarlane Temperature 97.6 f Comments: Method: Tympanic [...] kg/m2 Body Surface Area Calculated 1.84 m2 :06 Pulse 64 /min Comments: Pattern: Regular Respiration [...] 1.83 m2 Results Date Description Value Details 54-Leo-664421:23 Microscopic Examination Comments: PATIENT WAS FASTINGPERFORMED BY: [address] [id number] BY: [employer]70 [facility] [id number] Bacteria Few (Normal) Epithelial Cells (non renal) 0-10 {/hpf} (Normal) Range: 0 - 10 RBC 0-2 {/hpf} (Normal) Range: 0 - 2 WBC 0-5 {/hpf} (Normal) Range: 0 - 5 13-Bgk-586898:23 CALCIFIDIOL (78818) VIT D Comments: PATIENT WAS FASTINGPERFORMED BY: [address] [id number] BY: LAFASO Rhaqyy6356 [facility] [id number] 25 Vitamin D, 25-Hydroxy 47.6 ng/mL (Normal) Range: 30.0-100.0 Comments: Vitamin D deficiency has been defined by the [place] of[place] and an Endocrine Society practice guideline as alevel of serum 25-OH vitamin D less than 20 ng/mL (1,2).The Endocrine Society went on to further define vitamin Dinsufficiency as a level between 21 and 29 ng/mL (2).1. IOM ([place] [employer]). 2010. Dietary reference intakes for calcium and D. [place]: The National Academies Press.2. Stephon MF, Ana ROY, Alka ROMERO, et al. Evaluation, treatment, and prevention of vitamin D deficiency: an Endocrine Society clinical practice guideline. JCEM. 2010; 96(7):1911-30. 61-Cte-887564:23 TSH (96175) Comments: PATIENT WAS FASTINGPERFORMED BY: [employer] [place] [address] [id number] BY: [facility] [id number] TSH 2.870 {uIU/mL} (Normal) Range: 0.450-4.500 33-Rbf-169509:23 URINALYSIS, W/ MICRO Comments: PATIENT WAS FASTINGPERFORMED BY: [address] [id number] BY: [employer] [place] [id number] (64778) Microscopic Examination See below: (Normal) Comments: Microscopic was indicated and was performed. Nitrite, Urine Positive (Abnormal) Urobilinogen,Semi-Qn 0.2 mg/dL (Normal) Range: 0.2-1.0 Bilirubin Negative (Normal) Occult Blood Negative (Normal) Ketones Negative (Normal) Glucose Negative (Normal) Protein Negative (Normal) WBC Esterase 1+ (Abnormal) Appearance Clear (Normal) Urine-Color Yellow (Normal) pH 6.5 (Normal) Range: 5.0-7.5 Specific [place] 1.020 (Normal) Range: 1.005-1.030 65-Cae-448773:23 MICROALBUMIN: CREATININE Comments: PATIENT WAS FASTINGPERFORMED BY: [address] [id number] BY: [employer] [place] [id number] RATIO (02361) AND (23536) Alb/Creat Ratio 6.4 {mg/g_creat} (Normal) Range: 0.0-30.0 Comments: Normal: 0.0 - 30.0 Albuminuria: 31.0 - 300.0 Clinical albuminuria: >300.0 Albumin, Urine 4.4 ug/mL (Normal) Creatinine, Urine 68.8 mg/dL (Normal) 32-Ivz-316432:23 METABOLIC PANEL, Comments: PATIENT WAS FASTINGPERFORMED BY: BN [facility] [id number] [facility] [id number] BY: CB [facility] Lpjzun3032 [facility] [id number] COMPREHENSIVE (15438) ALT (SGPT) 18 [iU]/L (Normal) Range: 0-32 AST (SGOT) 20 [iU]/L (Normal) Range: 0-40 Alkaline Phosphatase 51 [iU]/L (Normal) Range: 39-117 Bilirubin, Total 0.4 mg/dL (Normal) Range: 0.0-1.2 A/G Ratio 2.0 (Normal) Range: 1.2-2.2 Globulin, Total 2.2 g/dL (Normal) Range: 1.5-4.5 Albumin 4.4 g/dL (Normal) Range: 3.6-4.8 Protein, Total 6.6 g/dL (Normal) Range: 6.0-8.5 Calcium 10.7 mg/dL (Abnormal) Range: 8.7-10.3 Carbon Dioxide, Total 23 mmol/L (Normal) Range: 20-29 Chloride 106 mmol/L (Normal) Range: 96-106 Potassium 5.3 mmol/L (Abnormal) Range: 3.5-5.2 Sodium 143 mmol/L (Normal) Range: 134-144 BUN/Creatinine Ratio 20 (Normal) Range: 12-28 eGFR If Africn Am 31 mL/min/1.73 (Abnormal) eGFR If NonAfricn Am 27 mL/min/1.73 (Abnormal) Creatinine 1.92 mg/dL (Abnormal) Range: 0.57-1.00 BUN 39 mg/dL (Abnormal) Range: 8-27 Glucose 120 mg/dL (Abnormal) Range: 65-99 25-Zys-253596:23 LIPOPROTEIN, BLD, BY NMR Comments: PATIENT WAS FASTINGPERFORMED BY: BN [facility] Slvvbjerdi6155 [facility] [id number] BY: CB [facility] Pvqavd6133 [facility] [id number] (44505) LP-IR Score 63 (Abnormal) Comments: INSULIN RESISTANCE MARKER <--Insulin Sensitive Insulin Resistant--> Percentile in Reference PopulationInsulin Resistance ScoreLP-IR Score Low 25th 50th 75th High <27 27 45 63 >63LP-IR Score is inaccurate if patient is non-fasting. .The LP-IR score is a laboratory developed i [facility] that has beenassociated with insulin resistance and diabetes risk and should beused as one component of a physician's clinical assessment. TheLP-IR score listed above has not been cleared by the [place] Food andDrug Administration. LDL Size 19.7 nm (Abnormal) Comments: INTERPRETATIVE INFORMATION PARTICLE CONCENTRATION AND SIZE <--Lower CVD Risk Highe r CVD Risk--> LDL AND HDL PARTICLES Percentile in Reference Population HDL-P (total) High 75th 50th 25th Low >34.9 34.9 30.5 26.7 <26.7 . Small LDL-P Low 25th 50th 75th High <117 117 527 839 >839 . LDL Size <-Large (Pattern A)-> <-Small (Pattern B)-> 23.0 20.6 20.5 19.0 Small LDL-P and LDL Size are associated with CVD risk, but not afterLDL-P is taken into account. .These assays were developed and their performance characteristicsdetermined by [employer]. These assays have not been cleared by [place] Food and Drug Administration. The clinical utility of theselaboratory values have not been fully established. Small LDL-P 676 nmol/L (Abnormal) HDL-P (Total) 41.6 umol/L (Normal) Cholesterol, Total 125 mg/dL (Normal) Range: 100-199 Triglycerides 78 mg/dL (Normal) Range: 0-149 HDL-C 49 mg/dL (Normal) LDL-C 60 mg/dL (Normal) Range: 0-99 Comments: . Optimal < 100 Above optimal 100 - 129 Borderline 1 30 - 159 High 160 - 189 Very high > 189 .LDL-C is inaccurate if patient is non-fasting. LDL-P 1003 nmol/L (Abnormal) Comments: Low < 1000 Moderate 1000 - 1299 Borderline-High 1300 - 1599 High 1600 - 2000 Very High > 2000 71-Ejk-975415:23 CBC W/AUTO DIFF WBC Comments: PATIENT WAS FASTINGPERFORMED BY: BN [facility] Trdyvpgrye6652 [facility] [id number] BY: CB [facility] Jjqgsh2578 [facility] [id number] (72636) Immature Grans (Abs) 0.0 {x10E3/uL} (Normal) Range: 0.0-0.1 Immature Granulocytes 0 % (Normal) Baso (Absolute) 0.0 {x10E3/uL} (Normal) Range: 0.0-0.2 Eos (Absolute) 0.3 {x10E3/uL} (Normal) Range: 0.0-0.4 Monocytes(Absolute) 0.8 {x10E3/uL} (Normal) Range: 0.1-0.9 Lymphs (Absolute) 1.5 {x10E3/uL} (Normal) Range: 0.7-3.1 Neutrophils (Absolute) 6.3 {x10E3/uL} (Normal) Range: 1.4-7.0 Basos 0 % (Normal) Eos 3 % (Normal) Monocytes 9 % (Normal) Lymphs 16 % (Normal) Neutrophils 72 % (Normal) Platelets 328 {x10E3/uL} (Normal) Range: 150-379 RDW 14.6 % (Normal) Range: 12.3-15.4 MCHC 32.7 g/dL (Normal) Range: 31.5-35.7 MCH 29.5 pg (Normal) Range: 26.6-33.0 MCV 90 fL (Normal) Range: 79-97 Hematocrit 41.0 % (Normal) Range: 34.0-46.6 Hemoglobin 13.4 g/dL (Normal) Range: 11.1-15.9 RBC 4.54 {x10E6/uL} (Normal) Range: 3.77-5.28 WBC 9.2 {x10E3/uL} (Normal) Range: 3.4-10.8 :27 HgA1C , Office (23366) HgA1C , Office 7.4 % (Abnormal) Range: 4.6 - 7.1 :27 Blood Glucose , Office (78839) Blood Glucose , Office 143 (Normal) 7-Mgq-675348:21 CBC-Complete Blood Cnt No Diff Comments: [facility] [address] [place], [place], [id number] MPV 9.8 fL (Normal) Range: 6.2-12.0 PLT 258 K/mm3 (Normal) Range: 150-450 RDW SD 50.3 fL (Abnormal) Range: 35.1-43.9 RDW CV 15.0 % (Abnormal) Range: 11.6-14.6 MCHC 32.0 {g/gl} (Normal) Range: 32-36 MCH 30.2 pg (Normal) Range: 27.0-32.0 MCV 94.4 fL (Normal) Range: 81-99 HCT 40.3 % (Normal) Range: 37-47 HGB 12.9 g/dL (Normal) Range: 12.0-15.0 RBC 4.27 {M/mm3} (Normal) Range: 4.2-5.4 WBC 7.0 K/mm3 (Normal) Range: 4.4-11.0 1-Fjl-326258:21 Magnesium Comments: [facility] [address] [place], [address] MG 1.9 mg/dL (Normal) Range: 1.6-2.6 7-Mef-915214:21 Protein+Creatinine Ratio,Urine Comments: [facility] [address] [place], [address] PROT:CRE RATIO 116 {mg/g_CRE} (Normal) Range: 0-200 PROTEIN,UR.RAN. 8.6 mg/dL (Normal) UR CREAT 74.00 mg/dL (Normal) 4-Uis-222522:21 PTHIN 36.7 pg/mL (Normal) Comments: [facility] [address] [place], [id number] Range: 18.4-80.1 4-Kkl-395115:21 Renal Profile Comments: [facility] [address] [place], [place], [id number] CO2 27.0 mmol/L (Normal) Range: 21.0-32.0 CL 106 mmol/L (Normal) Range: 98-107 K 4.0 mmol/L (Normal) Range: 3.5-5.1 NA 143 mmol/L (Normal) Range: 136-145 PHOS 2.5 mg/dL (Normal) Range: 2.5-4.9 CA 10.0 mg/dL (Normal) Range: 8.5-10.1 ALB 3.6 g/dL (Normal) Range: 3.2-5.0 BUN/CRE 17.2 {RATIO} (Normal) Range: 10-20 EST GFR - AA 39 mL/min (Abnormal) Comments: GFR Calc EST GFR 32 mL/min (Abnormal) Comments: Non- GFR Calc CREAT,SERUM 1.69 mg/dL (Abnormal) Range: 0.55-1.02 Comments: The validity of the calculated GFR AND GFRAA in patients over70 years has not been determined. Clinical correlation isessential. BUN 29 mg/dL (Abnormal) Range: 7-18 GLU 139 mg/dL (Abnormal) Range: 74-106 Comments: Fasting Glucose result greater than or equal to 126 mg/dLsuggests DIABETES MELLITUS per A.D.A. criteria.Please note revised GLUCOSE reference range igpjdxgde94/02/2018. 4-Ryi-983704:21 Uric Acid Comments: [facility] [address] [place], [place], [id number] URIC 5.6 mg/dL (Normal) Range: 2.6-6.0 Comments: The drugs N-Acetylcysteine and Metamizole may falselydepress this assay. 4-Wit-918709:21 Vitamin D,25 Hydroxy Comments: [facility] [address] [place], [address] Vitamin D 25-OH 32.8 ng/mL (Normal) Range: 29.95-100.01 Comments: Vitamin D 25(OH) Status Range Deficiency <20 ng/mL (50nmol/L) Insuffciency 20 - 30 ng/mL (50 - 75 nmol/L) Sufficiency 30 - 100 ng/mL (75 - 250 nmol/L) Toxicity >100 ng/mL (>250 nmol/L) :59 URIC ACID BLOOD (30080) Comments: PATIENT NOT FASTINGPERFORMED BY: [facility]CoOver[facility] CenterDpgwix6936 [facility] [id number] Uric Acid 8.7 mg/dL (Abnormal) Range: 2.5-7.1 Comments: Therapeutic target for gout patients: <6.0 :34 HgA1C , Office (88825) HgA1C , Office 6.5 % (Normal) Range: 4.6 - 7.1 :33 Blood Glucose , Office (05721) Blood Glucose , Office 103 (Normal) :32 Basic Metabolic Profile (BMP) Comments: [facility] [address] [place], [address] GAP 3 (Abnormal) Range: 5-15 CO2 31.0 [...] A.D.A. criteria.Please note revised GLUCOSE reference range /02/2018. :36 HgA1C , Office (51491) HgA1C , Office 6.6 % (Normal) Range: 4.6 - 7.1 :36 Blood Glucose , Office (41467) Blood Glucose , Office 186 (Normal) Comments: not fasting 0-Tyx-821519:28 Miscellaneous Lab Procedure Comments: Comments: TRAMADOL URINE [id number](s) Ordered: URINE TOXICOLOGY [id number] RUN LOWEST [facility] Zaiixghqhp9428 [facility], [address] [facility] Comments: [id number] 6+OXYCODONE-BUND (ng/mL)DRUG RESULT SCREEN CUTOFF____ Amphetamines,Urine Negat LAB (Normal) emy ng/mL 1000Amphetamine test includes Amphetamine and Methamphetamine.Barbiturates Negative ng/mL 200Benzodiazepines Negative ng/mL 200Cannabinoid TEST Negative ng/mL 20Cocaine (Metab) Negative ng/mL 300Opiates Negative ng/mL 300 Opiates test includes Codeine, Morphine, Hydromorphone, Wesley codone.Oxycodone/Oxymorphone,Urine Negative ng/mL 300 Test includes Oxydodone and Oxymorphone. TESTING PERFORMED AT [facility]. ORIGINAL REPORT ON FILE IN LAB CONTAINS ADDITIONAL TEST SITE INFORMATION. 6-Dcp-900160:28 Miscellaneous Lab Procedure 2 Comments: Comments: TRAMADOL URINE [id number] Test(s) Ordered by Physician: URINE TOXICOLOGY [id number] RUN [facility] [address] [place], [address] [facility] Comments: TEST RESULT LIMITSTramadol Positive Cutoff = 200 Tramadol GC/MS COnf 6050 ng/mL Cutoff = 100 LAB (Normal) TESTING PERFORMED AT [facility]. ORIGINAL REPORT ON FILE IN LAB CONTAINS ADDITIONAL TEST SITE INFORMATION. TEST 2 6-Qzp-019129:28 Urine Drug Screen (VISTA) Comments: Comments: TRAMADOL URINE [id number] of Drugs Taken or Suspected? [facility] [address] [place], [address] THC NEGATIVE (Normal) PCP NEGATIVE (Normal) OPIATES [...] TESTING MUST BE ORDERED SEPARATELY. USE TESTMNEMONIC: [facility] 03-Hpe-313125:14 CBC-Complete Blood Cnt No Diff Comments: [facility] [address] [place], [phone](026) MPV 9.5 fL (Normal) Range: 6.2-12.0 PLT [...] 4.2-5.4 WBC 9.7 K/mm3 (Normal) Range: 4.4-11.0 30-Ytu-703042:14 Magnesium Comments: [facility] [address] [place], [phone](976) MG 1.7 mg/dL (Normal) Range: 1.6-2.6 09-Bij-441278:14 Microalb:Creat Ratio,Random UR Comments: [facility] [address] [place], [id number] MALB:CREAT 5.5 {mg/g_CRE} (Normal) MICROALBUMIN,UR 6.1 mg/L (Normal) UR CREAT 111.00 mg/dL (Normal) 12-Zzw-545242:1 PTHIN 25.7 pg/mL (Normal) Comments: [facility] [address] [place], [id number] 4 Range: 18.4-80.1 Comments: Please Note: PTH INTACT METHOD AND REFERENCE RANGE CHANGEEffective 11/18/2017. 33-Qkn-942101:14 Renal Profile Comments: [facility] [address] [place], [address] CO2 27.0 mmol/L (Normal) Range: 21.0-32.0 CL [...] A.D.A. criteria.Please note revised GLUCOSE reference range xgtnbzwyt59/02/2018. 01-Fns-494878:14 Uric Acid Comments: [facility] [address] [facility] [place], [address] URIC 8.4 mg/dL (Abnormal) Range: 2.6-6.0 Comments: The drugs N-Acetylcysteine and Metamizole may falselydepress this assay. 55-Jnu-216931:14 Vitamin D,25 Hydroxy Comments: [facility] [address] [place], [place], [id number] Vitamin D 25-OH 36.6 ng/mL (Normal) Range: 29.95-100.01 Comments: Vitamin D 25(OH) Status Range Deficiency <20 ng/mL (50nmol/L) Insuffciency 20 - 30 ng/mL (50 - 75 nmol/L) Sufficiency 30 - 100 ng/mL (75 - 250 nmol/L) Toxicity >100 ng/mL (>250 nmol/L) 84-Ayg-61446:27 HgA1C , Office (54422) HgA1C , Office 6.7 % (Normal) Range: 4.6 - 7.1 2-Zkd-088842:13 Bedside Glucose Comments: [facility] LaboratoryPoint of Metl[address] [place] [address] BEDSIDE GLU 132 mg/dL (Abnormal) Range: 70-110 Comments: MANAGEMENT OF PATIENT CARE PER NURSING PROTOCOL :00 Culture, Bronch Aveolar Lavage Comments: [facility] [address] [place], [phone] CUBRL See Note (Normal) Comments: List Antibiotics Last 48 Hours? .List Antibiotics to be Started? .Gram StainGram Stain No White Blood Cells No organisms seen Resp. CultureMixed normal respiratory hermelindo. No Haemophilus, Streptoc occus pneumoniae, beta-hemolytic Streptococcus or Staphylococcus aureus isolated. 06-Rao-380110:06 HgA1C , Office (30957) HgA1C , Office 8.2 % (Abnormal) Range: 4.6 - 7.1 86-Ysk-407943:06 Blood Glucose , Office (54191) Blood Glucose , Office 168 (Normal) 91-Bfo-609317:00 Culture, Fungus 8482 Comments: [facility] [address] [place], [id number] CUF See Note Comments: PER ORDER, SPUTUM SMEAR/CULTURE FUNGAS Cu,Ltgdaa9314 TESTING PERFORMED AT [facility]. ORIGINAL REPORT ON FILE IN LAB CONTAINS NEO TIONAL TEST (Normal) SITE INFORMATION. CUF Positive Fungus Culture ORGANISM 1: Yana albicansAmount Growth Growth 71-Iey-595186:00 Culture, Sputum Comments: [facility] [address] [place], [place], [address] CUSP See Note (Normal) Comments: PER ORDER, SPUTUM SMEAR/CULTURE FUNGAS Gram StainAcceptable Specimen? Yes (<25 Epithelial cells per/lpf) Gram Stain 1+ White Blood Cells 1+ Epithelial cells 1+ Gram positive cocci Resp. CultureMixed normal respiratory hermelindo. No Haemophilus, Streptococcus pneumoniae, beta-hemolytic Streptococcus or Staphylococcus aureus isolated. 80-Wej-185689:49 BNP,B-Type NATRIURETIC PEPTIDE Comments: [facility] [address] [place], [place], [phone] B-TYPE EB PEP 41.7 pg/mL (Normal) Range: 0-100 96-Kzv-889770:30 Rapid Flu (97375 x 2) Influenza A Ag neg (Normal) 2-Hhl-584440:14 Bedside Glucose Comments: [facility] LaboratoryPoint of Obvg[address] [place], [place] [address] BEDSIDE GLU 151 mg/dL (Abnormal) Range: 70-110 Comments: MANAGEMENT OF PATIENT CARE PER NURSING PROTOCOL 07-Dec-20170:00 Culture, Bronch Aveolar Lavage Comments: [facility] [address] [place], [place], [address] CUBRL See Note (Normal) Comments: List Antibiotics [...] $ <=20 S(NF) indicates non-formulary drug at [facility]. Approval by Infectious Disease Specialist required before non-formulary drugs may be ordered and/or dispensed. 2-Loa-293008:27 CBC-Complete Blood Cnt No Diff Comments: [facility] [address] [place], [address] MPV 10.0 fL (Normal) Range: 6.2-12.0 PLT [...] 4.2-5.4 WBC 14.0 K/mm3 (Abnormal) Range: 4.4-11.0 8-Ojm-221992:27 Hemoglobin A1c Comments: [facility] [address] [place], [address] HGB A1C 7.9 % (Abnormal) Range: 4.2-6.3 7-Xuw-939270:27 Magnesium Comments: [facility] [address] [place], [address] MG 1.9 mg/dL (Normal) Range: 1.8-2.4 6-Gkb-386790:27 Microalb:Creat Ratio,Random UR Comments: [facility] [address] [place], [phone] MALB:CREAT 12.0 {mg/g_CRE} (Normal) MICROALBUMIN,UR 11.1 mg/L (Normal) UR CREAT 92.40 mg/dL (Normal) 7-Pcq-225164:27 PTHIN 83.3 pg/mL (Abnormal) Comments: [facility] [address] [place], [address] Range: 18.4-80.1 Comments: Please Note: PTH INTACT METHOD AND REFERENCE RANGE CHANGEEffective 11/18/2017. 2-Ouk-873841:27 Renal Profile Comments: [facility] [address] [place], [address] CO2 24.0 mmol/L (Normal) Range: 21.0-32.0 CL [...] 200 mg/dLsuggests DIABETES MELLITUS per A.D.A. criteria. 6-Cnf-102833:27 Uric Acid Comments: [facility] [address] [place], [address] URIC 9.0 mg/dL (Abnormal) Range: 2.6-6.0 Comments: The drugs N-Acetylcysteine and Metamizole may falselydepress this assay. 6-Hnr-455430:27 Vitamin D,25 Hydroxy Comments: [facility] [address] [place], [address] Vitamin D 25-OH 34.1 ng/mL (Normal) Comments: Vitamin D 25(OH) Status Range Deficiency <20 ng/mL (50nmol/L) Insuffciency 20 - 30 ng/mL (50 - 75 nmol/L) Sufficiency 30 - 100 ng/mL (75 - 250 nmol/L) Toxicity >100 ng/mL (>250 nmol/L) :22 THROAT CULTURE (94924) Comments: PATIENT NOT FASTINGPERFORMED BY: [employer]70 [facility] [id number] Information: SRC: Result 1 RRF (Normal) Comments: Routine respiratory hermelindo Upper Respiratory Culture Final report (Normal) 75-Jsa-467265:09 Rapid Flu (66631 x 2) Comments: Negative Influenza A Ag negative (Normal) 69-Yrx-011646:09 Rapid Strep Test, Office (44595) Comments: Negative Rapid Strep Test, Office Negative (Normal) 59-Rgd-078239:52 Microscopic Examination Comments: PATIENT WAS FASTINGPERFORMED BY: Fast FiBR6370 [facility] [id number] Bacteria None seen (Normal) Mucus Threads Present (Normal) Epithelial Cells (non renal) 0-10 {/hpf} (Normal) Range: 0 - 10 RBC 0-2 {/hpf} (Normal) Range: 0 - 2 WBC 0-5 {/hpf} (Normal) Range: 0 - 5 68-Spv-072504:08 Magnesium Comments: [facility] [address] [place], [place], [address] MG 1.9 mg/dL (Normal) Range: 1.8-2.4 99-Gno-412600:08 Microalb:Creat Ratio,Random UR Comments: [facility] [address] [place], [place], [address] MALB:CREAT 8.5 {mg/g_CRE} (Normal) MICROALBUMIN,UR 5.2 mg/L (Normal) UR CREAT 61.10 mg/dL (Normal) 54-Dqs-926386:08 PTH,INTACT Comments: [facility] [address] [place], [place], [address] PTH,Intact 40 pg/mL (Normal) Range: 14-72 :08 Renal Profile Comments: [facility] [address] [place], [address] CO2 23.0 mmol/L (Normal) Range: 21.0-32.0 CL [...] per A.D.A. criteria. :08 Uric Acid Comments: [facility] [address] [place], [address] URIC 8.0 mg/dL (Abnormal) Range: 2.6-6.0 Comments: The drugs N-Acetylcysteine and Metamizole may falselydepress this assay. 86-Ipb-119535:08 Vitamin D,25 Hydroxy Comments: [facility] [address] [place], [address] Vitamin D 25-OH 27.6 ng/mL (Normal) Comments: Vitamin D 25(OH) Status Range Deficiency <20 ng/mL (50nmol/L) Insuffciency 20 - 30 ng/mL (50 - 75 nmol/L) Sufficiency 30 - 100 ng/mL (75 - 250 nmol/L) Toxicity >100 ng/mL (>250 nmol/L) 54-Jtm-502154:52 URINALYSIS, W/ MICRO (93705) Comments: PATIENT WAS FASTINGPERFORMED BY: [facility] CenterGzmfnm0691 [facility] [id number] Microscopic Examination See below: (Normal) Comments: Microscopic was indicated and was performed. Nitrite, Urine Negative (Normal) Urobilinogen,Semi-Qn 0.2 mg/dL (Normal) Range: 0.2-1.0 Bilirubin Negative (Normal) Occult Blood Negative (Normal) Ketones Negative (Normal) Glucose 1+ (Abnormal) Protein Negative (Normal) WBC Esterase 1+ (Abnormal) Appearance Clear (Normal) Urine-Color Yellow (Normal) pH 6.5 (Normal) Range: 5.0-7.5 Specific [place] 1.023 (Normal) Range: 1.005-1.030 77-Pim-401996:52 MICROALBUMIN: CREATININE RATIO Comments: PATIENT WAS FASTINGPERFORMED BY: [facility] CenterRycrii2347 [facility] [id number] (88712) AND (42381) Microalb/Creat Ratio 7.6 {mg/g_creat} (Normal) Range: 0.0-30.0 Microalbumin, Urine 6.8 ug/mL (Normal) Creatinine, Urine 89.4 mg/dL (Normal) 98-Uhj-669816:52 METABOLIC PANEL, COMPREHENSIVE Comments: PATIENT WAS FASTINGPERFORMED BY: [employer] [facility] [id number] (81152) ALT (SGPT) 22 [iU]/L (Normal) Range: 0-32 [...] Glucose, Serum 99 mg/dL (Normal) Range: 65-99 65-Xem-166514:52 CBC W/AUTO DIFF WBC (44289) Comments: PATIENT WAS FASTINGPERFORMED BY: [facility] Grlkel2698 [facility] [id number] Immature Grans (Abs) 0.0 {x10E3/uL} (Normal) Range: [...] 3.77-5.28 WBC 13.0 {x10E3/uL} (Abnormal) Range: 3.4-10.8 17-Xzv-464111:52 LIPID PANEL (89533) Comments: PATIENT WAS FASTINGPERFORMED BY: [employer] [facility] [id number] LDL/HDL Ratio 1.8 {ratio_units} (Normal) Range: 0.0-3.2 Comments: LDL/HDL Ratio Men Women 1/2 Avg.Risk 1.0 1.5 Av g.Risk 3.6 3.2 2X Avg.Risk 6.2 5.0 3X Avg.Risk 8.0 6.1 LDL Cholesterol Calc 75 mg/dL (Normal) Range: 0-99 VLDL Cholesterol Yamilka 42 mg/dL (Abnormal) Range: 5-40 HDL Cholesterol 41 mg/dL (Normal) Triglycerides 211 mg/dL (Abnormal) Range: 0-149 Cholesterol, Total 158 mg/dL (Normal) Range: 100-199 94-Fgk-212358:52 TSH (60804) Comments: PATIENT WAS FASTINGPERFORMED BY: batterii [facility] [id number] TSH 1.390 {uIU/mL} (Normal) Range: 0.450-4.500 55-Sba-865788:52 CALCIFEDIOL (75583) Comments: PATIENT WAS FASTINGPERFORMED BY: batterii [facility] [id number] Vitamin D, 25-Hydroxy 38.5 ng/mL (Normal) Range: 30.0-100.0 Comments: Vitamin D deficiency has been defined by the [place] ofMedicine and an Endocrine Society practice guideline as alevel of serum 25-OH vitamin D less than 20 ng/mL (1,2).The Endocrine Society went on to further define vitamin Dinsufficiency as a level between 21 and 29 ng/mL (2).1. IOM ([place] of Medicine). 2010. Dietary reference intakes for calcium and D. [place]: The National Academies Press.2. Stephon MF, Ana ROY, Alka ROMERO, et al. Evaluation, treatment, and prevention of vitamin D deficiency: an Endocrine Society clinical practice guideline. JCEM. 2010; 96(7):1911-30. :32 HgA1C , Office (16141) HgA1C , Office 8.1 % (Abnormal) Range: 4.6 - 7.1 :32 Blood Glucose , Office (57437) Blood Glucose , Office 122 (Normal) :37 Immature Cells Comments: PATIENT WAS FASTINGPERFORMED BY: Fast FiBR6370 [place] [id number] Myelocytes 1 % (Abnormal) Range: 0 - 0 Metamyelocytes 3 % (Abnormal) Range: 0 - 0 :16 PHOSPHORUS (13304) Comments: PATIENT WAS FASTINGPERFORMED BY: Fast FiBR6370 [employer] [place] [id number] Phosphorus, Serum 2.8 mg/dL (Normal) Range: 2.5-4.5 :16 MAGNESIUM (10423) Comments: PATIENT WAS FASTINGPERFORMED BY: Fast FiBR6370 [place] [id number] Magnesium, Serum 1.8 mg/dL (Normal) Range: 1.6-2.3 :16 METABOLIC PANEL, COMPREHENSIVE Comments: PATIENT WAS FASTINGPERFORMED BY: [employer] [employer] [place] [id number] (34511) ALT (SGPT) 29 [iU]/L (Normal) Range: 0-32 [...] DIR SMEAR Comments: PATIENT NOT FASTINGPERFORMED BY: [facility]joyNov[facility] [id number] (91610) Result 1 NOCP (Normal) Comments: No ova, cysts, or parasites seen. Ova + Parasite Exam Final report (Normal) Comments: These results were obtained using wet preparation(s) and trichromestained smear. This test does not include testing for Cryptosporidiumparvum, Cyclospora, or Microsporidia. :34 OCCULT BLOOD FECES SCREEN Comments: PATIENT NOT FASTINGPERFORMED BY: [employer] [facility] Ant MediaNov[facility] Health [facility] [id number] (82490) Occult Blood, Fecal, IA Negative (Normal) :34 LEUKOCYTE COUNT, FECAL (35530) Comments: PATIENT NOT FASTINGPERFORMED BY: [employer] [facility] PathwaysAtrium Health [facility]son [id number] Result 1 NWBC (Normal) Comments: No white blood cells seen. White Blood Cells (WBC), Final report (Normal) Stool :34 C-DIFFICILE, STOOL (07883) Comments: PATIENT NOT FASTINGPERFORMED BY: [employer] Dgulvx5633 MoneysoftNov[facility] [id number] C difficile Toxins A+B, EIA Negative (Normal) :34 ALFONZO CULTURE-STOOL (05702) Comments: PATIENT NOT FASTINGPERFORMED BY: [employer] Nladbg3990 [employer] PartnersNovant Health Fors[facility] Center [id number] Information: SRC:ST SRC:ST E coli Shiga Toxin EIA Negative (Normal) Result 1 NCI (Normal) Comments: No Campylobacter species isolated. Campylobacter Culture Final report (Normal) Result 1 NSS (Normal) Comments: No Salmonella or Shigella recovered. Salmonella/Shigella Screen Final report (Normal) :56 Metabolic Panel, Comprehensive Comments: PATIENT NOT FASTINGPERFORMED BY: [employer] Wisuqa6547 [facility] [id number] (38046) ALT (SGPT) 26 [iU]/L (Normal) Range: 0-32 [...] Glucose, Serum 147 mg/dL (Abnormal) Range: 65-99 19-Qlg-761666:56 CBC, Platelets & Auto Diff Comments: PATIENT NOT FASTINGPERFORMED BY: [facility] Skjyxl0255 [facility] [id number] (82142) Immature Grans (Abs) 0.1 {x10E3/uL} (Normal) Range: [...] (Normal) Range: 3.4-10.8 :37 URIC ACID BLOOD (81279) Comments: PATIENT WAS FASTINGPERFORMED BY: [facility]6370 [facility] [id number] Uric Acid, Serum 9.1 mg/dL (Abnormal) Range: 2.5-7.1 Comments: Therapeutic target for gout patients: <6.0 :10 METABOLIC PANEL, COMPREHENSIVE (80885) :37 CBC W/AUTO DIFF WBC (08385) Comments: PATIENT WAS FASTINGPERFORMED BY: LabHawthorn Center6370 [facility] [id number] Hematology Comments: Note: (Normal) Comments: Manual differential [...] 3.77-5.28 WBC 9.4 {x10E3/uL} (Normal) Range: 3.4-10.8 :58 Magnesium Comments: [facility] [address] [place], [address] MG 2.0 mg/dL (Normal) Range: 1.8-2.4 Comments: Slight Hemolysis, Result may be falsely increased. :58 Renal Profile Comments: [facility] [address] [place], [address] CO2 27.0 mmol/L (Normal) Range: 21.0-32.0 CL [...] per A.D.A. criteria. :45 URIC ACID BLOOD (89244) Comments: PATIENT NOT FASTINGPERFORMED BY: [facility] Rznfuq9861 [facility] [id number] Uric Acid, Serum 9.6 mg/dL (Abnormal) Range: 2.5-7.1 Comments: Therapeutic target for gout patients: <6.0 :45 RENAL FUNCTION PANEL (94694) Comments: PATIENT NOT FASTINGPERFORMED BY: LabCoOverlook Medical CenterFwugms6070 [facility] [id number] Albumin, Serum 4.5 g/dL (Normal) Range: 3.6-4.8 [...] 214 mg/dL (Abnormal) Range: 65-99 :24 CALCIFIDIOL (43418) VIT D 25 Comments: PATIENT WAS FASTINGPERFORMED BY: LabCoOver[facility] Medical CenterJnnput3796 [facility] [id number] Vitamin D, 25-Hydroxy 44.9 ng/mL (Normal) Range: 30.0-100.0 Comments: Vitamin D deficiency has been defined by the [place] ofMedicine and an Endocrine Society practice guideline as alevel of serum 25-OH vitamin D less than 20 ng/mL (1,2).The Endocrine Society went on to further define vitamin Dinsufficiency as a level between 21 and 29 ng/mL (2).1. IOM ([place] of Medicine). 2010. Dietary reference intakes for calcium and D. [place]: The National Academies Press.2. Stephon MF, Ana ROY, Alka ROMERO, et al. Evaluation, treatment, and prevention of vitamin D deficiency: an Endocrine Society clinical practice guideline. JCEM. 2010; 96(7):1911-30. :39 HgA1C , Office (10708) HgA1C , Office 7.6 % (Abnormal) Range: 4.6 - 7.1 :39 Blood Glucose , Office (46236) Blood Glucose , Office 174 (Normal) :56 TSH (16501) Comments: PATIENT WAS FASTINGPERFORMED BY: LabCoOverlook Medical CenterWmogbr5772 [facility] [id number] TSH 2.180 {uIU/mL} (Normal) Range: 0.450-4.500 :56 LIPID PANEL (78905) Comments: PATIENT WAS FASTINGPERFORMED BY: LabCoOverlook Medical CenterLkrmrd5483 [facility] [id number] LDL/HDL Ratio 1.8 {ratio_units} (Normal) Range: 0.0-3.2 [...] Range: 100-199 :36 CBC W/Diff, Automated Comments: [facility] [address] [place], [place], [id number] Absolute Lymph 1.31 {X10_3/ul} (Normal) Range: 0.83-4.51 [...] 4.2-5.4 WBC 10.5 K/mm3 (Normal) Range: 4.4-11.0 7-Psz-904113:36 Magnesium Comments: [address] [place], [phone] MG 1.9 mg/dL (Normal) Range: 1.8-2.4 8-Nbs-902729:36 Protein+Creatinine Ratio,Urine Comments: [address] [place], [address] PROT:CRE RATIO 120 {mg/g_CRE} (Normal) Range: 0-200 PROTEIN,UR.RAN. 13.6 mg/dL (Abnormal) UR CREAT 113.00 mg/dL (Normal) 0-Xna-050875:36 PTH,INTACT Comments: [facility] [address] [place], [address](476) PTH,Intact 27 pg/mL (Normal) Range: 14-72 6-Hrj-318486:36 Renal Profile Comments: [address] [place], [address](821) CO2 27.0 mmol/L (Normal) Range: 21.0-32.0 CL [...] 126 mg/dLsuggests DIABETES MELLITUS per A.D.A. criteria. 1-Lwc-328596:36 Uric Acid Comments: [facility] [address] [place], [address] URIC 7.5 mg/dL (Abnormal) Range: 2.6-6.0 Comments: The drugs N-Acetylcysteine and Metamizole may falsely deressthis assay. :36 Vitamin D,25 Hydroxy Comments: [facility] [address] [place], [id number] Vitamin D 25-OH 33.9 ng/mL (Normal) Comments: Vitamin D 25(OH) Status Range Deficiency <20 ng/mL (50nmol/L) Insuffciency 20 - 30 ng/mL (50 - 75 nmol/L) Sufficiency 30 - 100 ng/mL (75 - 250 nmol/L) Toxicity >100 ng/mL (>250 nmol/L) :24 Renal Profile Comments: [facility] [address] [place], [place], [address] CO2 24.0 mmol/L (Normal) Range: 21.0-32.0 CL [...] Immature Cells Comments: PATIENT WAS FASTINGPERFORMED BY: [facility]joyNov[facility] [id number] Myelocytes 4 % (Abnormal) Range: 0 - 0 :46 Microscopic Examination Comments: PATIENT WAS FASTINGPERFORMED BY: VrvanaAtrium Health [facility]son [id number] Bacteria Few (Normal) Mucus Threads Present (Normal) Crystal Type Calcium Oxalate (Normal) Crystals Present (Abnormal) Epithelial Cells (non renal) 0-10 {/hpf} (Normal) Range: 0 - 10 RBC 3-10 {/hpf} (Abnormal) Range: 0 - 2 WBC 11-30 {/hpf} (Abnormal) Range: 0 - 5 :47 Sputum Culture (15764) Comments: PATIENT NOT FASTINGPERFORMED BY: VrvanaAtrium Health [facility]son [id number] Information: SRC:SP Result 1 RRF (Normal) Comments: Routine respiratory hermelindo Lower Respiratory Culture Final report (Normal) :46 CALCIFEDIOL ([id number]) Comments: PATIENT WAS FASTINGPERFORMED BY: [facility] [facility] [id number] Vitamin D, 25-Hydroxy 32.4 ng/mL (Normal) Range: 30.0-100.0 Comments: Vitamin D deficiency has been defined by the [place] [facility] and an Endocrine Society practice guideline as alevel of serum 25-OH vitamin D less than 20 ng/mL (1,2).The Endocrine Society went on to further define vitamin Dinsufficiency as a level between 21 and 29 ng/mL (2).1. IOM ([place] of Medicine). 2010. Dietary reference intakes for calcium and D. [place]: The National Academies Press.2. Stephon MF, Ana ROY, Alka ROMERO, et al. Evaluation, treatment, and prevention of vitamin D deficiency: an Endocrine Society clinical practice guideline. JCEM. 2010; 96(7):1911-30. :46 Metabolic Panel, Comprehensive Comments: PATIENT WAS FASTINGPERFORMED BY: [facility]otherapy[facility] Center6370 [facility] [id number] (27081) ALT (SGPT) 19 [iU]/L (Normal) Range: 0-32 [...] Glucose, Serum 126 mg/dL (Abnormal) Range: 65-99 31-Psg-80029:46 CBC WITH MANUAL DIFF Comments: PATIENT WAS FASTINGPERFORMED BY: [facility]6370 [facility] [id number] Information: [id number] (66659) Hematology Comments: Note: (Normal) Comments: Manual differential [...] 14.0 {x10E3/uL} (Abnormal) Range: 3.4-10.8 :46 URINALYSIS (67461) Comments: PATIENT WAS FASTINGPERFORMED BY: [facility]6370 [facility] [id number] Microscopic Examination See below: (Normal) Comments: Microscopic was indicated and was performed. Nitrite, Urine Negative (Normal) Urobilinogen,Semi-Qn 0.2 mg/dL (Normal) Range: 0.2-1.0 Bilirubin Negative (Normal) Occult Blood Negative (Normal) Ketones Negative (Normal) Glucose 2+ (Abnormal) Protein Negative (Normal) WBC Esterase 3+ (Abnormal) Appearance Clear (Normal) Urine-Color Yellow (Normal) pH 6.5 (Normal) Range: 5.0-7.5 Specific [place] 1.022 (Normal) Range: 1.005-1.030 :46 MICROALBUMIN: CREATININE RATIO Comments: PATIENT WAS FASTINGPERFORMED BY: [facility] HospitalPkhyso4429 [facility] [id number] (17755) AND (07180) Microalb/Creat Ratio 10.1 {mg/g_creat} (Normal) Range: 0.0-30.0 Microalbumin, Urine 7.3 ug/mL (Normal) Creatinine, Urine 72.6 mg/dL (Normal) :46 TSH (68888) Comments: PATIENT WAS FASTINGPERFORMED BY: [facility] HospitalRkczsp0835 [facility] [id number] TSH 2.600 {uIU/mL} (Normal) Range: 0.450-4.500 :46 Lipid Panel (38404) Comments: PATIENT WAS FASTINGPERFORMED BY: [facility] CenterKzmtpp7662 [facility] [id number]; has appt 08/20, will review at that [...] (Normal) Range: 100-199 :49 HgA1C , Office (32208) HgA1C , Office 6.6 % (Normal) Range: 4.6 - 7.1 :49 Blood Glucose , Office (49826) Blood Glucose , Office 113 (Normal) :10 CBC W/Diff, Automated Comments: [facility] Cspuatksil2822 [facility] [address] [place], [place], [address] Absolute Lymph 1.40 {X10_3/ul} (Normal) Range: 0.83-4.51 [...] (Normal) Range: 4.4-11.0 :10 Magnesium Comments: Comments: [facility] Snebgtcbfc[address] [place], [phone] MG 1.9 mg/dL (Normal) Range: 1.8-2.4 :10 Protein+Creatinine Ratio,Urine Comments: [facility] Socksifvqg[address] [place], [phone] PROT:CRE RATIO 112 {mg/g_CRE} (Normal) Range: 0-200 PROTEIN,UR.RAN. 8.1 mg/dL (Normal) UR CREAT 72.10 mg/dL (Normal) :10 PTH,INTACT Comments: [facility] Tdzgeuqkyc[address] [place], [phone] PTH,Intact 29 pg/mL (Normal) Range: 14-72 :10 Renal Profile Comments: Comments: [facility] Invjjbeqmk4[address] [place], [phone] CO2 25.0 mmol/L (Normal) Range: 21.0-32.0 CL [...] 126 mg/dLsuggests DIABETES MELLITUS per A.D.A. criteria. 13-Ujf-746576:10 Uric Acid Comments: Comments: [facility] Adochftyqs[address] [place], [address] URIC 7.1 mg/dL (Abnormal) Range: 2.6-6.0 Comments: The drugs N-Acetylcysteine and Metamizole may falsely deressthis assay. 22-Trx-673054:10 Vitamin D,25 Hydroxy Comments: [facility] [address] [place], [address] Vitamin D 25-OH 35.5 ng/mL (Normal) Comments: Vitamin D 25(OH) Status Range Deficiency <20 ng/mL (50nmol/L) Insuffciency 20 - 30 ng/mL (50 - 75 nmol/L) Sufficiency 30 - 100 ng/mL (75 - 250 nmol/L) Toxicity >100 ng/mL (>250 nmol/L) 31-Bog-833031:10 CALCIUM SERUM (11027) Comments: PATIENT NOT FASTINGPERFORMED BY: [facility] RadiotherapyCoOverlook Medical CenterZxwiwb8534 [facility] [id number] Information: [id number] Calcium, Serum 10.3 mg/dL (Normal) Range: 8.7-10.3 79-Kyk-267192:10 MAGNESIUM (58375) Comments: PATIENT NOT FASTINGPERFORMED BY: [facility] RadiotherapyCoOverlook Medical CenterXgwvsd6562 [facility] [id number] Magnesium, Serum 2.1 mg/dL (Normal) Range: 1.6-2.3 9-Bso-297526:14 Bedside Glucose Comments: [facility] LaboratoryPoint of Bniu[address] [place], [place] [phone] BEDSIDE GLU 110 mg/dL (Normal) Range: 70-110 Comments: MANAGEMENT OF PATIENT CARE PER NURSING PROTOCOL :26 Metabolic Panel, Basic Comments: PATIENT NOT FASTINGPERFORMED BY: [facility] Mebhdx0[address] [place] [id number] Information: [id number]; will review on 06/04 (21338) Calcium, Serum 10.0 mg/dL (Normal) Range: 8.7-10.3 [...] Glucose, Serum 104 mg/dL (Abnormal) Range: 65-99 :39 Magnesium Comments: ORDERED CA AND PTHINDRLUDA ORDERED CBC PTHIN RENAL VITD CRE/PROURIC [facility] Qoqigxilhk[address] [place], [place], [phone] MG 2.0 mg/dL (Normal) Range: 1.8-2.4 :39 Protein+Creatinine Ratio,Urine Comments: [facility] Ebudlwtfmj[address] [place], [place], [phone] PROT:CRE RATIO 188 {mg/g_CRE} (Normal) Range: 0-200 PROTEIN,UR.RAN. < 6.0 mg/dL (Normal) UR CREAT 29.80 mg/dL (Normal) :39 PTH,INTACT Comments: [facility] Di[address] [place], [address] PTH,Intact 53 pg/mL (Normal) Range: 14-72 :39 Renal Profile Comments: ORDERED CA AND PTHINDR.LUZ ORDERED CBC PTHIN RENAL VITD CRE/PROURIC [facility] Aacvqtblsw[address] [place], [place], [phone](447) CO2 22.0 mmol/L (Normal) Range: 21.0-32.0 CL [...] PTHINDR.LUZ ORDERED CBC PTHIN RENAL VITD CRE/PROURIC [facility] Wraofixqfs[address] [place], [place], [phone] URIC 7.3 mg/dL (Abnormal) Range: 2.6-6.0 Comments: The drugs N-Acetylcysteine and Metamizole may falsely deressthis assay. :39 Vitamin D,25 Hydroxy Comments: [facility] Es[address]rkvd[address] [place], [address] Vitamin D 25-OH 52.3 ng/mL (Normal) Comments: Vitamin D 25(OH) Status Range Deficiency <20 ng/mL (50nmol/L) Insuffciency 20 - 30 ng/mL (50 - 75 nmol/L) Sufficiency 30 - 100 ng/mL (75 - 250 nmol/L) Toxicity >100 ng/mL (>250 nmol/L) 3-Hqo-841184:09 URINE CALCIUM KAITLIN TIMED Comments: PATIENT NOT FASTINGPERFORMED BY: [facility] Juonsv9357 [address] [facility] [id number] Information: [id number] 2500ML START @6AM FINISH 05/05/16@ 6AM (34843) Calcium, Urine 24hr 45.0 {mg/24_hr} (Abnormal) Range: 100.0-300.0 Calcium, Urine 1.8 mg/dL (Normal) 02-May-20169:30 Fecal Occult Blood , Office (20291) Fecal Occult Blood , Office (Inhouse) negative (Normal) 19-Afd-533375:23 Crystals, Body Fluid Comments: [facility] [address] [place], [place], [phone] PATH REV Reviewed (Normal) Comments: Negative for malignant cells.Mixture of calcium pyrophosphate (pseudogout) crystals andnondescript crystals are noted.Johnson Castro M.D. 04/29/16 SOURCE/BF SYNOVIAL (Normal) CRYSTALS/BF SEE PATH REV (Normal) 51-Pgu-987319:23 Culture, Body Fluid Comments: [facility] [address] [place], [place], [address] CUBF See Note (Normal) Comments: List Antibiotics Last 48 Hours? UNKList Antibiotics to be Started? UNKGram StainCentrifuged Specimen? Culture performed on centrifuged specimen Gram Stain Rare Red Cell Stroma Rare Red Blood Cells No organisms seen Body Fluid CultNO GROWTH IN 14 DAYS Cult, AnaerobicNo growth in 5 days. 88-Qzc-190877:23 GLUCOSE, SYNOVIAL FLUID Comments: ORDERED WRONGSpecimen Source: [...] be integrated into the clinical contextfor interpretation. 16-Xnp-209925:23 Synovial Fluid RBC, WBC AND Comments: [facility] [address]hnth[address] [place], [address] Diff PATH COM/SYFL March (Normal) OTHER CELL /SYN 3 % (Normal) [...] COLOR Yellow (Normal) VISCOSITY/SYFL Sl. Viscous (Normal) :58 CALCIUM SERUM (25946) Comments: PATIENT NOT FASTINGPERFORMED BY: [employer]70 MoneysoftNovant Health [facility] [id number] Information: [id number] Calcium, Serum 10.6 mg/dL (Abnormal) Range: 8.7-10.3 :10 Microscopic Examination Comments: PATIENT WAS FASTINGPERFORMED BY: Fast FiBR6370 [facility]At[facility] [id number] Bacteria None seen (Normal) Mucus Threads Present (Normal) Epithelial Cells (non renal) 0-10 {/hpf} (Normal) Range: 0 - 10 RBC None seen {/hpf} (Normal) Range: 0 - 2 WBC 0-5 {/hpf} (Normal) Range: 0 - 5 :10 CALCIFIDIOL (41216) VIT D 25 Comments: PATIENT WAS FASTINGPERFORMED BY: Fast FiBR6370 [address] [facility] [id number] Vitamin D, 25-Hydroxy 63.0 ng/mL (Normal) Range: 30.0-100.0 Comments: Vitamin D deficiency has been defined by the [place] ofMedicine and an Endocrine Society practice guideline as alevel of serum 25-OH vitamin D less than 20 ng/mL (1,2).The Endocrine Society went on to further define vitamin Dinsufficiency as a level between 21 and 29 ng/mL (2).1. IOM ([place] of Medicine). 2010. Dietary reference intakes for calcium and D. [place]: The National Academies Press.2. Stephon MF, Ana NC, Alka ROMERO, et al. Evaluation, treatment, and prevention of vitamin D deficiency: an Endocrine Society clinical practice guideline. JCEM. 2010; 96(7):1911-30. :10 TSH (43011) Comments: PATIENT WAS FASTINGPERFORMED BY: Sw[employer] Solutionslin6370 [facility] [id number] TSH 2.680 {uIU/mL} (Normal) Range: 0.450-4.500 :10 URINALYSIS, W/ MICRO (16725) Comments: PATIENT WAS FASTINGPERFORMED BY: [facility]6370 [facility] [id number] Microscopic Examination See below: (Normal) Comments: Microscopic was indicated and was performed. Microscopic Examination MICRON (Normal) Comments: Microscopic follows if indicated. Nitrite, Urine Negative (Normal) Urobilinogen,Semi-Qn 0.2 mg/dL (Normal) Range: 0.2-1.0 Bilirubin Negative (Normal) Occult Blood Negative (Normal) Ketones Negative (Normal) Glucose 3+ (Abnormal) Protein Negative (Normal) WBC Esterase Negative (Normal) Appearance Clear (Normal) Urine-Color Yellow (Normal) pH 6.5 (Normal) Range: 5.0-7.5 Specific [place] 1.022 (Normal) Range: 1.005-1.030 :10 MICROALBUMIN: CREATININE RATIO Comments: PATIENT WAS FASTINGPERFORMED BY: [facility]otherapyHaw[facility] Center6370 [facility] [id number] (89075) AND (39166) Microalb/Creat Ratio 20.5 {mg/g_creat} (Normal) Range: 0.0-30.0 Microalbumin, Urine 20.1 ug/mL (Normal) Comments: Please note reference interval change Creatinine, Urine 97.9 mg/dL (Normal) Comments: Please note reference interval change :10 LIPID PANEL (75166) Comments: PATIENT WAS FASTINGPERFORMED BY: [facility]6370 [facility] [id number] LDL/HDL Ratio 2.0 {ratio_units} (Normal) Range: 0.0-3.2 [...] Cholesterol, Total 141 mg/dL (Normal) Range: 100-199 :10 METABOLIC PANEL, COMPREHENSIVE Comments: PATIENT WAS FASTINGPERFORMED BY: LabCoOverlook Medical CenterLapvsx7887 [facility] [id number]; will review on 04.18 (65675) ALT (SGPT) 18 [iU]/L (Normal) Range: 0-32 [...] Glucose, Serum 143 mg/dL (Abnormal) Range: 65-99 14-Quw-37236:10 CBC W/AUTO DIFF WBC Comments: PATIENT WAS FASTINGPERFORMED BY: PRATIMA [facility] Ejcnpg2211 [facility] [id number] Information: [id number] (73385) Immature Grans (Abs) 0.0 {x10E3/uL} (Normal) Range: [...] 3.77-5.28 WBC 7.8 {x10E3/uL} (Normal) Range: 3.4-10.8 54-Gdo-545234:02 HgA1C , Office (95932) HgA1C , Office 6.6 % (Normal) Range: 4.6 - 7.1 46-Emo-024170:02 Blood Glucose , Office (09195) Blood Glucose , Office 142 (Normal) 41-Zsi-628545:20 NuSwab Vaginitis Plus Comments: PATIENT NOT FASTINGPERFORMED BY: Lab[address] [id number] Information: [id number] (STD W/O Herpes) (55732) Neisseria gonorrhoeae, YAIR Negative (Normal) Chlamydia trachomatis, YAIR Negative (Normal) Trich vag by YAIR Negative (Normal) Yana glabrata, YAIR Negative (Normal) Comments: This test was developed and its performance characteristics determinedby [facility]. It has not been cleared or approved [...] was developed and its performance characteristics determinedby [facility]. It has not been cleared or appro tima by the Food and DrugAdministration. The FDA has determined that such clearance orapproval is not necessary. BVAB 2 Low - 0 {Score} (Normal) Atopobium vaginae Low - 0 {Score} (Normal) 02-Ioe-809190:56 Magnesium Comments: Test performed at:[facility] [address] [place] [address] MG 2.2 mg/dL (Normal) Range: 1.8-2.4 26-Hrw-407302:56 Protein+Creatinine Ratio,Urine Comments: Test performed at:[facility] [address] [place] [address] PROT:CRE RATIO 440 {mg/g_CRE} (Abnormal) Range: 0-200 PROTEIN,UR.RAN. 8.1 mg/dL (Normal) UR CREAT 18.20 mg/dL (Normal) 80-Aft-915877:56 Renal Profile Comments: Test performed at:[facility] [address]lynnaio[address] [place] [address] CO2 28.0 mmol/L (Normal) Range: 21.0-32.0 CL [...] Comments: Please note revised CREATININE reference range upnypsloz22/22/2015. BUN 44 mg/dL (Abnormal) Range: 7-18 GLU 186 mg/dL (Abnormal) Range: 70-110 Comments: Fasting Glucose result greater than or equal to 126 mg/dLsuggests DIABETES MELLITUS per A.D.A. criteria. :56 Uric Acid Comments: Test performed at:[facility] S[address]ouftfwka[address] [place] [address] URIC 6.5 mg/dL (Abnormal) Range: 2.6-6.0 :56 Vitamin D,25 Hydroxy Comments: Test performed at:[facility] Inmsxhbjlh9785 [place] [address] Vitamin D 25-OH 67.0 ng/mL (Normal) Comments: Vitamin D 25(OH) Status Range Deficiency <20 ng/mL (50nmol/L) Insuffciency 20 - 30 ng/mL (50 - 75 nmol/L) Sufficiency 30 - 100 ng/mL (75 - 250 nmol/L) Toxicity >100 ng/mL (>250 nmol/L) 43-Jfb-155082:01 Rapid Strep Test, Office (18094) Rapid Strep Test, Office Negative (Normal) :21 HgA1C , Office (84908) HgA1C , Office 6.4 % (Normal) Range: 4.6 - 7.1 :21 Blood Glucose , Office (63472) Blood Glucose , Office 167 (Normal) :01 Microscopic Examination Comments: PATIENT WAS FASTINGPERFORMED BY: [facility] [place] [id number] Bacteria Few (Normal) Mucus Threads Present (Normal) Epithelial Cells (non renal) 0-10 {/hpf} (Normal) Range: 0 - 10 RBC 0-2 {/hpf} (Normal) Range: 0 - 2 WBC 6-10 {/hpf} (Abnormal) Range: 0 - 5 :50 Antinuclear Antibodies Direct Comments: PATIENT NOT FASTINGPERFORMED BY: [facility] [employer] [facility] [id number] HEIDI Direct Negative (Normal) : C-Reactive Protein, 7.3 mg/L (Abnormal) Comments: PATIENT NOT FASTINGPERFORMED BY: [facility] Dhkluy7849 [facility] [id number] 50 Quant Range: 0.0-4.9 :50 CBC, Platelet, No Differential Comments: PATIENT NOT FASTINGPERFORMED BY: [facility]. SCIC [employer] ProjetCox South [id number] Platelets 253 {x10E3/uL} (Normal) Range: 150-379 RDW [...] Panel (14) Comments: PATIENT NOT FASTINGPERFORMED BY: [facility]iotherapySaint [facility] Hhgyyx0768 [facility] [id number] Information: [id number] ALT (SGPT) 17 [iU]/L (Normal) Range: 0-32 [...] ng/mL (Normal) Comments: PATIENT NOT FASTINGPERFORMED BY: [employer] [facility] Wkjndf8465 [facility] [id number] 50 Serum Comments: A serum folate concentration of less than 3.1 ng/mL isconsidered to represent clinical deficiency. :50 Rheumatoid Arthritis Factor Comments: PATIENT NOT FASTINGPERFORMED BY: [employer] [facility] Xznlyx0782 [address] [employer] Real Estate PartnersNovant Health Forsy[facility] Center [id number] RA Latex Turbid. 10.5 {IU/mL} Range: 0.0-13.9 (Normal) Sedimentation 7 mm/h (Normal) Comments: PATIENT NOT FASTINGPERFORMED BY: CB [facility] Evzxlo9238 Wu RoadDublin [place] [id number] :50 Rate-Westergren Range: 0-40 TSH 2.450 {uIU/mL} Comments: PATIENT NOT FASTINGPERFORMED BY: CB [facility] Yoqnoj5020 Wu RoadDublin [place] [id number] :50 (Normal) Range: 0.450-4.500 Vitamin B12 1684 pg/mL Comments: PATIENT NOT FASTINGPERFORMED BY: CB [facility] Fpzzob6065 Wu RoadDublin [place] [id number] :50 (Abnormal) Range: 211-946 Vitamin D, 25-Hydroxy 75.1 ng/mL Comments: PATIENT NOT FASTINGPERFORMED BY: CB [facility] Rwfhdp1360 Wu RoadDublin [place] [id number] :50 (Normal) Range: 30.0-100.0 Comments: Vitamin D deficiency has been defined by the [place] ofMedicine and an Endocrine Society practice guideline as alevel of serum 25-OH vitamin D less than 20 ng/mL (1,2).The Endocrine Society went on to further define vitamin Dinsufficiency as a level between 21 and 29 ng/mL (2).1. IOM ([place] of Medicine). 2010. Dietary reference intakes for calcium and D. [place]: The National Academies Press.2. Stephon MF, Ana ROY, Alka ROMERO, et al. Evaluation, treatment, and prevention of vitamin D deficiency: an Endocrine Society clinical practice guideline. JCEM. 2010; 96(7):1911-30. :57 Lower Respiratory Culture Comments: PATIENT NOT FASTINGPERFORMED BY: CB [facility] Tgoztk7654 [address] [facility] Hospitalblin [place] [id number] Information: SRC:[facility] [id number] Result 1 RRF (Normal) Comments: Routine respiratory hermelindo Lower Respiratory Culture Final report (Normal) :01 MICROALBUMIN: CREATININE RATIO Comments: PATIENT WAS FASTINGPERFORMED BY: CB [facility] Hwoagh7644 [facility] [id number] (83933) AND (48648) Microalb/Creat Ratio 22.8 {mg/g_creat} (Normal) Range: 0.0-30.0 Microalbumin, Urine 18.8 ug/mL (Abnormal) Range: 0.0-17.0 Creatinine, Urine 82.6 mg/dL (Normal) Range: 15.0-278.0 :01 URINALYSIS (25508) Comments: PATIENT WAS FASTINGPERFORMED BY: [facility]6370 [facility] [id number] Microscopic Examination See below: (Normal) Comments: Microscopic was indicated and was performed. Nitrite, Urine Negative (Normal) Urobilinogen,Semi-Qn 0.2 mg/dL (Normal) Range: 0.0-1.9 Bilirubin Negative (Normal) Occult Blood Negative (Normal) Ketones Negative (Normal) Glucose 2+ (Abnormal) Protein Negative (Normal) WBC Esterase Trace (Abnormal) Appearance Clear (Normal) Urine-Color Yellow (Normal) pH 6.5 (Normal) Range: 5.0-7.5 Specific [place] 1.020 (Normal) Range: 1.005-1.030 :01 Metabolic Panel, Comments: PATIENT WAS FASTINGPERFORMED BY: [facility]6370 [facility] [id number] Information: [id number], [id number] Comprehensive (64115) ALT (SGPT) 17 [iU]/L (Normal) Range: 0-32 [...] 110 mg/dL (Abnormal) Range: 65-99 :01 CALCIFEDIOL (28143) Comments: PATIENT WAS FASTINGPERFORMED BY: [employer] [place] [facility] [id number] Vitamin D, 25-Hydroxy 101.0 ng/mL (Abnormal) Range: 30.0-100.0 Comments: Vitamin D deficiency has been defined by the [place]ella ofHolzer Health Systemcine and an Endocrine Society practice guideline as alevel of serum 25-OH vitamin D less than 20 ng/mL (1,2).The Endocrine Society went on to further define vitamin Dinsufficiency as a level between 21 and 29 ng/mL (2).1. IOM ([place] of Medicine). 2010. Dietary reference intakes for calcium and D. [place]: The National Academies Press.2. Stephon MF, Ana NC, Alka ROMERO, et al. Evaluation, treatment, and prevention of vitamin D deficiency: an Endocrine Society clinical practice guideline. JCEM. 2010; 96(7):1911-30. :01 Lipid Panel (57807) Comments: PATIENT WAS FASTINGPERFORMED BY: [employer]6370 [facility] [id number] LDL/HDL Ratio 1.4 {ratio_units} (Normal) Range: 0.0-3.2 [...] (Normal) Range: 100-199 :06 HgA1C , Office (79305) HgA1C , Office 6.4 % (Normal) Range: 4.6 - 7.1 :06 Blood Glucose , Office (06058) Blood Glucose , Office 168 (Normal) :43 CBC W/Diff, Automated Comments: Test performed at:[facility] [address]wsxvc[address] [place], [place] [id number] Absolute Lymph 1.33 {X10_3/ul} (Normal) Range: 0.83-4.51 [...] Range: 4.4-11.0 :43 Magnesium Comments: Test performed at:[facility] [address] [place] [address] MG 1.6 mg/dL (Abnormal) Range: 1.8-2.4 :43 Protein+Creatinine Ratio,Urine Comments: Test performed at:[facility] Oaptcgsdil[address] [place] [id number] PROT:CRE RATIO 143 {mg/g_CRE} (Normal) Range: 0-200 PROTEIN,UR.RAN. 16.0 mg/dL (Abnormal) UR CREAT 111.6 mg/dL (Normal) :43 Renal Profile Comments: Test performed at:[facility] [address]od[address]meql[address] [place] [address] CO2 29.0 mmol/L (Normal) Range: 21.0-32.0 CL [...] criteria. :43 Uric Acid Comments: Test performed at:[facility] [address]tsqhfk[address] [place] [address] URIC 7.5 mg/dL (Abnormal) Range: 2.6-6.0 :43 Vitamin D,25 Hydroxy Comments: Test performed at:[facility] Lfgieilaan[address] [place] [address] Vitamin D 25-OH 48.0 ng/mL (Normal) Comments: Vitamin D 25(OH) Status Range Deficiency <20 ng/mL (50nmol/L) Insuffciency 20 - 30 ng/mL (50 - 75 nmol/L) Sufficiency 30 - 100 ng/mL (75 - 250 nmol/L) Toxicity >100 ng/mL (>250 nmol/L) :16 HgA1C , Office (06076) HgA1C , Office 5.6 % (Normal) Range: 4.6 - 7.1 :16 Blood Glucose , Office (77881) Blood Glucose , Office 113 (Normal) :35 CALCIUM SERUM (11812) Comments: PATIENT NOT FASTINGPERFORMED BY: [facility] [id number] Information: [id number] Calcium, Serum 10.0 mg/dL (Normal) Range: 8.6-10.2 :55 HEIDI Negative (Normal) Comments: Performed at: - [facility] [id number] Director: Taurus Morrissey MD, Phone: [phone] :55 CBCD ALC 1.15 {X10_3/ul} (Normal) Range: [...] HEBSAG ttHEBSAG Negative (Normal) Comments: Performed at: [address] [id number] Director: Taurus Morrissey MD, Phone: [phone] at: [address] [id number] 1Lab Director: Juan Carlos Mathew MD, Phone: [phone] :55 HECAB tHECAB 0.1 {s/co_ratio} (Normal) Range: 0.0-0.9 Comments: Negative: < 0.8Indeterminate 0.8 - 0.9Positive: > 0.9In order to reduce the incidence of a false positiveresult, the CDC recommends that all s/co ratiosbetween 1.0 and 10.9 be confirmed by a more specificsupplemental or PCR testing. [facility] offers HCV Abw/Reflex to Verification test #[id number]. :55 RF < 10.0 {IU/mL} (Normal) :55 SED tSEDRATE 7 mm/h (Normal) Range: 0-30 :55 VITD 45.5 mg/mL (Normal) Comments: Vitamin D 25(OH) Status RangeDeficiency <20 ng/mL (50nmol/L)Insuffciency 20 - 30 ng/mL (50 - 75 nmol/L)Sufficiency 30 - 100 ng/mL (75 - 250 nmol/L)Toxicity >100 ng/mL (>250 nmol/L) :05 CALCIFEDIOL (95131) Comments: PATIENT NOT FASTINGPERFORMED BY: [facility]otherapy[facility] Ubcrjb2186 [facility] [id number] Information: [id number] Vitamin D, 25-Hydroxy 34.1 ng/mL (Normal) Range: 30.0-100.0 Comments: Vitamin D deficiency has been defined by the [place] ofMedicine and an Endocrine Society practice guideline as alevel of serum 25-OH vitamin D less than 20 ng/mL (1,2).The Endocrine Society went on to further define vitamin Dinsufficiency as a level between 21 and 29 ng/mL (2).1. IOM ([place] of Medicine). 2010. Dietary reference intakes for calcium and D. [place]: The National Academies Press.2. Stephon MF, Ana NC, Alka ROMERO, et al. Evaluation, treatment, and prevention of vitamin D deficiency: an Endocrine Society clinical practice guideline. JCEM. 2010; 96(7):1911-30. :05 CALCIUM SERUM (93501) Comments: PATIENT NOT FASTINGPERFORMED BY: [facility]otherapySaint [facility] Lusjlv2229 [facility] [id number] Calcium, Serum 10.3 mg/dL (Abnormal) Range: 8.6-10.2 50-Uhv-083951:43 CALCIFIDIOL (12819) VIT D Comments: PATIENT NOT FASTINGPERFORMED BY: [facility]otherapySaint [facility] Dyruiu7930 [facility] Systems [id number] Information: [id number] 25 Vitamin D, 25-Hydroxy 44.7 ng/mL (Normal) Range: 30.0-100.0 Comments: Vitamin D deficiency has been defined by the [place] of[place] and an Endocrine Society practice guideline as alevel of serum 25-OH vitamin D less than 20 ng/mL (1,2).The Endocrine Society went on to further define vitamin Dinsufficiency as a level between 21 and 29 ng/mL (2).1. IOM ([place] of [employer]). 2010. Dietary reference intakes for calcium and D. [place]: The National AcademSo Protect Me Press.2. Stephon MF, Ana ROY, Alka ROMERO, et al. Evaluation, treatment, and prevention of vitamin D deficiency: an Endocrine Society clinical practice guideline. JCEM. 2010; 96(7):1911-30. 36-Jhh-120650:36 URINE CALCIUM KAITLIN TIMED Comments: PATIENT NOT FASTINGPERFORMED BY: SimpleLegal70 [facility]Nov[facility] [id number] Information: [id number] 1950ML START 05/21@630AM FINISH 05/22/14@6 30AM 24 Hour (57159) Calcium, Urine 24hr 93.6 {mg/24_hr} (Abnormal) Range: 100.0-300.0 Calcium, Urine 4.8 mg/dL (Normal) 09-Tnn-820812:43 PARATHORMONE (94557) Comments: PATIENT NOT FASTINGPERFORMED BY: ShwrümCo Upujwt6723 [facility]softNov[facility] [id number] PTH, Intact 22 pg/mL (Normal) Range: 15-65 71-Igo-51809:56 Metabolic Panel, Basic Comments: drawn next ; PATIENT NOT FASTINGPERFORMED BY: [employer] Gjdogg8419 [facility]softNov[facility] [id number] Information: [id number] (61464) Calcium, Serum 10.5 mg/dL (Abnormal) Range: 8.6-10.2 Carbon Dioxide, Total 22 mmol/L (Normal) Range: 19-28 Comments: Effective May 15, 2014, the reference interval for Carbon Dioxide, Total will be changing to: 0 - 30 days 15 - 27 31 d - 5 months 6 m - 11 months - years > 12 years 18 - 29 Chloride, [...] Glucose, Serum 113 mg/dL (Abnormal) Range: 65-99 0-Fwt-553129:50 METABOLIC PANEL, Comments: PATIENT NOT FASTINGPERFORMED BY: LabCoOverlook Medical CenterGnjfcr3628 [facility] [id number] Information: [id number] COMPREHENSIVE (80697) ALT (SGPT) 22 [iU]/L (Normal) Range: 0-32 [...] be changing to: 0 - 30 days 31 d - 5 months 6 m - 11 months - years > 12 years 18 - 29 Chloride, [...] (Abnormal) Range: 65-99 :13 HgA1C , Office (89625) HgA1C , Office 6.5 % (Normal) Range: 4.6 - 7.1 :13 Blood Glucose , Office (36072) Blood Glucose , Office 163 (Normal) :41 [...] CREATININE RATIO Comments: PATIENT WAS FASTINGPERFORMED BY: [facility]joyNov[facility] [id number] (18965) AND (00350) Microalb/Creat Ratio 6.2 {mg/g_creat} (Normal) Range: 0.0-30.0 Microalbumin, Urine 2.2 ug/mL (Normal) Range: 0.0-17.0 Creatinine, Urine 35.7 mg/dL (Normal) Range: 15.0-278.0 :38 URINALYSIS (08463) Comments: PATIENT WAS FASTINGPERFORMED BY: [facility] [id number] Microscopic Examination MICRON (Normal) Comments: Microscopic follows if indicated. Nitrite, Urine Negative (Normal) Urobilinogen,Semi-Qn 0.2 mg/dL (Normal) Range: 0.0-1.9 Bilirubin Negative (Normal) Occult Blood Negative (Normal) Ketones Negative (Normal) Glucose Negative (Normal) Protein Negative (Normal) WBC Esterase Negative (Normal) Appearance Clear (Normal) Urine-Color Yellow (Normal) pH 7.5 (Normal) Range: 5.0-7.5 Specific [place] 1.010 (Normal) Range: 1.005-1.030 :38 CALCIFEDIOL (57822) Comments: PATIENT WAS FASTINGPERFORMED BY: Fast FiBR6370 Wu [facility] [id number] Vitamin D, 25-Hydroxy 44.7 ng/mL (Normal) Range: 30.0-100.0 Comments: Vitamin D deficiency has been defined by the [place] of[place] and an Endocrine Society practice guideline as alevel of serum 25-OH vitamin D less than 20 ng/mL (1,2).The Endocrine Society went on to further define vitamin Dinsufficiency as a level between 21 and 29 ng/mL (2).1. IOM ([place] of Medicine). 2010. Dietary reference intakes for calcium and D. [place]: The National Academies Press.2. Stephon MF, Ana NC, Alka ROMERO, et al. Evaluation, treatment, and prevention of vitamin D deficiency: an Endocrine Society clinical practice guideline. JCEM. 2010; 96(7):1911-30. :38 TSH (22844) Comments: PATIENT WAS FASTINGPERFORMED BY: LabCo Cktyhs3831 Wu [facility] [id number] TSH 2.930 {uIU/mL} (Normal) Range: 0.450-4.500 :38 CBC with manual diff Comments: PATIENT WAS FASTINGPERFORMED BY: [facility] Jzaktn3606 [facility] [id number] Information: [id number] (34235) Immature Grans (Abs) 0.0 {x10E3/uL} (Normal) Range: [...] Panel, Comprehensive Comments: PATIENT WAS FASTINGPERFORMED BY: LabCoOverlook Medical CenterUeljcb3125 [facility] [id number] (98651) ALT (SGPT) 22 [iU]/L (Normal) Range: 0-32 [...] Glucose, Serum 92 mg/dL (Normal) Range: 65-99 :38 Lipid Panel (50307) Comments: PATIENT WAS FASTINGPERFORMED BY: LabCoOverlook Medical CenterQnujvo6933 [facility] [id number] LDL/HDL Ratio 1.2 {ratio_units} (Normal) Range: 0.0-3.2 LDL Cholesterol Calc 53 mg/dL (Normal) Range: 0-99 VLDL Cholesterol Yamilka 27 mg/dL (Normal) Range: 5-40 HDL Cholesterol 45 mg/dL (Normal) Comments: According to ATP-III Guidelines, HDL-C >59 mg/dL is considered anegative risk factor for CHD. Triglycerides 135 mg/dL (Normal) Range: 0-149 Cholesterol, Total 125 mg/dL (Normal) Range: 100-199 :05 LIPID PANEL (62664) Comments: PATIENT WAS FASTINGPERFORMED BY: LabCoOverlook Medical CenterWsktlt0872 [facility] [id number] Information: [id number] LDL/HDL Ratio 1.6 {ratio_units} (Normal) Range: 0.0-3.2 LDL Cholesterol Calc 76 mg/dL (Normal) Range: 0-99 VLDL Cholesterol Yamilka 30 mg/dL (Normal) Range: 5-40 HDL Cholesterol 49 mg/dL (Normal) Comments: According to ATP-III Guidelines, HDL-C >59 mg/dL is considered anegative risk factor for CHD. Triglycerides 148 mg/dL (Normal) Range: 0-149 Cholesterol, Total 155 mg/dL (Normal) Range: 100-199 59-Frd-914427:43 FECAL OCCULT HGB ASSAY- tubes sent home (43177) FECAL OCCULT HGB ASSAY, QUAL, 1-3 SIMULTANEOU negative (Normal) 84-Psj-083264:40 Nuclear Stress Test Radiology Report See Note [...] The patient was injected with 31.6 mCi slCl53y Cardiolite and subsequently stress SPECT Cardiolite nuclear [...] Wiliam MASON by Mayur FELIX,Yosi on 07/29/13 8519 Sign by: Yosi Merchant MD 18-Spd-21012:52 KNEE 1 OR 2 VIEWS Radiology Report [...] Ferguson M.D.July 29, 2013 at 5:00:35 PM [phone] Signed RU/RU If you are the referring phys ician and would like to consult with theradiologist who provided this interpretation, please contact Alejandro Horton at [phone]. If this radiologist is unavailable, youwillbe directed to [facility] radiologist to assist. If you are a patient with a question regarding this report, pleasecontactyour referring physician directly. Professional Interpretation Provided By: OpenDrive, Phone , These documents contain legally protected [...] destructionofthese documents. Dictated on 07/29/13 1700 by Phyllis,AgTranscribed on 08/30/13 1714 by ITS IMPORTSign by PhyllisAg on 07/29/13 1715 Si gn by: Ag Ferguson 21-Lsp-95590:52 KNEE 1 OR 2 VIEWS Radiology Report [...] Ferguson M.D.July 29, 2013 at 5:02:45 PM [phone] Signed RU/RU If you are the referring physician and would like to consult with therad iologist who provided this interpretation, please contact Alejandro Horton at [phone]. If this radiologist is unavailable, youwillbe directed to another radiologist to assist. If you are a sandra ent with a question regarding this report, pleasecontactyour referring physician directly. Professional Interpretation Provided By: [employer], Phone , These documents con tain legally [...] destruc tionofthese documents. Dictated on 07/29/131701 by Ag FergusonTranscribed on 07/29/131715 by ITS IMPORTSign by Ag Ferguson on 07/29/131716 Sign by: joseAg 69-Ilq-602259:27 CCP ANTIBODY (44148) Comments: PATIENT NOT FASTINGPERFORMED BY: [employer] LabCo Euymdw3659 [facility] [id number] BY: [address] [id number] CCP Antibodies IgG/IgA 5 {units} (Normal) Range: 0-19 Comments: Negative <20 Weak positive 20 - 39 Moderate positive 40 - 59 Strong positive >59 28-Nts-362135:27 SED RATE ERYTHROCYTE Comments: PATIENT NOT FASTINGPERFORMED BY: [employer] LabAmtec Ycpxpe9494 [facility] [id number] BY: [address] [id number] (67515) Sedimentation Rate-Westergren 2 mm/h (Normal) Range: 0-40 00-Sgd-852264:27 C-REACTIVE PROTEIN Comments: PATIENT NOT FASTINGPERFORMED BY: [employer] LabAmtecrp Xqpnma4686 [facility] [id number] BY: [address] [id number] (98340) C-Reactive Protein, Quant 2.1 mg/L (Normal) Range: 0.0-4.9 95-Nvv-461907:27 TSH (51375) Comments: PATIENT NOT FASTINGPERFORMED BY: [employer] [facility] Oytcga1961 [facility] [id number] BY: [address] [id number] TSH 1.630 {uIU/mL} (Normal) Range: 0.450-4.500 68-Fvu-668802:27 RHEUMATOID FACTOR-QUANT Comments: PATIENT NOT FASTINGPERFORMED BY: CB LabCo Cwetbb1331 [facility] [id number] BY: [place] [address] [facility] [id number] (76192) RA Latex Turbid. 9.7 {IU/mL} (Normal) Range: 0.0-13.9 67-Bxk-061841:27 HEIDI (ANTINUCLEAR ANTIBODY) Comments: PATIENT NOT FASTINGPERFORMED BY: LabCoIsabel [place]ille 4008270 [facility] [id number] BY: [address] [id number] (61238) HEIDI Direct Negative (Normal) 73-Kbe-603906:27 CBC WITH MANUAL DIFF Comments: PATIENT NOT FASTINGPERFORMED BY: LabCoIs[place] 4008270 [facility] [id number] BY: [address] [id number] Inf ormation: [id number],L68010 (78907) Immature Grans (Abs) 0.0 {x10E3/uL} (Normal) Range: [...] 3.77-5.28 WBC 8.5 {x10E3/uL} (Normal) Range: 4.0-10.5 68-Eaw-798319:27 METABOLIC PANEL, Comments: PATIENT NOT FASTINGPERFORMED BY: CB [facility] Uhtxyq2784 [facility] [id number] BY: BN [facility] Arpxflwsbo0341 [facility] [id number] COMPREHENSIVE (47186) ALT (SGPT) 24 [iU]/L (Normal) Range: 0-32 [...] (Normal) Range: 65-99 :22 HgA1C , Office (03555) HgA1C , Office 5.9 % (Normal) Range: 4.6 - 7.1 :22 Blood Glucose , Office (24472) Blood Glucose , Office 148 (Normal) Comments: non fasting :44 MAGNESIUM (90544) Comments: copy to dr jose mayes; PATIENT NOT FASTINGPERFORMED BY: Traak SystemsN[facility] [id number] Magnesium, Serum 2.0 mg/dL (Normal) Range: 1.6-2.6 :44 Metabolic Panel, Basic Comments: copy to dr jose Mayes; PATIENT NOT FASTINGPERFORMED BY: [facility]joyNov[facility] [id number] Information: [id number] (97455) Calcium, Serum 10.1 mg/dL (Normal) Range: 8.6-10.2 [...] Glucose, Serum 141 mg/dL (Abnormal) Range: 65-99 17-Oyp-068536:10 PTT (Activated Partial Comments: PATIENT NOT FASTINGPERFORMED BY: [facility]Nov[facility] [id number] Thromboplastin Time) (50052) aPTT 30 {sec} (Normal) Range: 24-33 Comments: This test has not been validated for monitoring unfractionated heparintherapy. aPTT-based therapeutic ranges for unfractionated heparintherapy have not been established. For general guidelines onHeparin monitoring, refer to the [facility] Directory of Services. 94-Fxg-530376:10 PT (Prothrobim Time) Comments: PATIENT NOT FASTINGPERFORMED BY: [place] 9132670 [facility] [id number] Information: [id number] (36352) Prothrombin Time 10.4 {sec} (Normal) Range: 9.1-12.0 INR 1.0 (Normal) Range: 0.8-1.2 Comments: Reference interval is for non-anticoagulated patients. . Suggested INR therapeutic range for Vitamin K anta gonist therapy: Standard Dose (moderate intensity therapeutic range): 2.0 - 3.0 Higher intensity therapeutic range 2.5 - 3.5 38-Mdd-035379:10 Potassium Serum (28905) Comments: PATIENT NOT FASTINGPERFORMED BY: [address] [id number] Potassium, Serum 3.9 mmol/L (Normal) Range: 3.5-5.2 87-Nec-090786:10 Magnesium (54861) Comments: PATIENT NOT FASTINGPERFORMED BY: [address] [id number] Magnesium, Serum 1.9 mg/dL (Normal) Range: 1.6-2.6 :59 HgA1C , Office (97450) HgA1C , Office 5.7 % (Normal) Range: 4.6 - 7.1 :59 Blood Glucose , Office (27959) Blood Glucose , Office 149 (Normal) :08 TSH (89095) Comments: PATIENT WAS FASTINGPERFORMED BY: [place] 9132670 [facility] [id number] TSH 2.390 {uIU/mL} (Normal) Range: 0.450-4.500 :08 URINALYSIS, W/ MICRO (58089) Comments: PATIENT WAS FASTINGPERFORMED BY: Ozura WorldOverlook Medical CenterMwjgdu7003 [facility] [id number] Microscopic Examination See below: (Normal) Microscopic Examination MICRON (Normal) Comments: Microscopic follows if indicated. Nitrite, Urine Negative (Normal) Urobilinogen,Semi-Qn 0.2 mg/dL (Normal) Range: 0.0-1.9 Bilirubin Negative (Normal) Occult Blood Negative (Normal) Ketones Negative (Normal) Glucose Negative (Normal) Protein Negative (Normal) Appearance Clear (Normal) WBC Esterase Negative (Normal) pH 7.5 (Normal) Range: 5.0-7.5 Specific [place] 1.013 (Normal) Range: 1.005-1.030 Urine-Color Yellow (Normal) :08 MICROALBUMIN: CREATININE RATIO Comments: PATIENT WAS FASTINGPERFORMED BY: [employer] Ojcitj0046 [facility] [id number] (08933) AND (38678) Microalb/Creat Ratio 3.8 {mg/g_creat} (Normal) Range: 0.0-30.0 Microalbumin, Urine 2.9 ug/mL (Normal) Range: 0.0-17.0 Creatinine, Urine 77.3 mg/dL (Normal) Range: 15.0-278.0 :08 METABOLIC PANEL, COMPREHENSIVE Comments: PATIENT WAS FASTINGPERFORMED BY: Ozura WorldOverlook Medical CenterKtuzkt7437 [facility] [id number] (55892) ALT (SGPT) 17 [iU]/L (Normal) Range: 0-32 [...] mg/dL (Abnormal) Range: 65-99 :08 LIPID PANEL (84739) Comments: PATIENT WAS FASTINGPERFORMED BY: [facility] [id number] LDL/HDL Ratio 2.1 {ratio_units} (Normal) Range: 0.0-3.2 [...] MANUAL DIFF Comments: PATIENT WAS FASTINGPERFORMED BY: Fast FiBR6370 Wu [facility] [id number] Information: ADD [id number] AND DRAW FEE 99 6096 (50752) Immature Grans (Abs) 0.0 {x10E3/uL} (Normal) Range: [...] Microscopic Examination Comments: PATIENT WAS FASTINGPERFORMED BY: LabCo Pihnzf1280 [facility] [id number] Bacteria None seen (Normal) Mucus Threads Present (Normal) Epithelial Cells (non renal) 0-10 {/hpf} (Normal) Range: 0 - 10 RBC 0-3 {/hpf} (Normal) Range: 0 - 3 WBC 0-5 {/hpf} (Normal) Range: 0 - 5 :49 HgA1C , Office (25098) HgA1C , Office 5.8 % (Normal) Range: 4.6 - 7.1 :49 Blood Glucose , Office (08674) Blood Glucose , Office 142 (Normal) :13 ALFONZO CULTURE-OTHER (31555) Comments: PATIENT NOT FASTINGPERFORMED BY: [place] 9132670 [facility] [id number] Information: SRC:THRT [id number] Result 1 RRF (Normal) Comments: Routine respiratory hermelindo Upper Respiratory Culture Final report (Normal) 9-Lsj-990236:30 Rapid Strep Test, Office (73571) Rapid Strep Test, Office Negative (Normal) 40-Rpi-660690:36 URIC ACID BLOOD (47551) Comments: PATIENT NOT FASTINGPERFORMED BY: [place] 9132670 [facility] [id number] Information: [id number] Uric Acid, Serum 6.6 mg/dL (Normal) Range: 2.5-7.1 Comments: Therapeutic target for gout patients: <6.0 :29 Blood Glucose , Office (27123) Blood Glucose , Office 128 (Normal) :29 HgA1C , Office (77650) HgA1C , Office 5.5 % (Normal) Range: 4.6 - 7.1 23-Kpw-806051:11 HgA1C , Office (48798) HgA1C , Office 5.5 % (Normal) Range: 4.6 - 7.1 08-Zcx-268251:11 Blood Glucose , Office (36346) Blood Glucose , Office 127 (Normal) :35 Microscopic Examination Comments: PATIENT WAS FASTINGPERFORMED BY: [facility]6370 [facility] [id number] Bacteria Few (Normal) Mucus Threads Present (Normal) Cast Type Hyaline casts (Normal) Casts Present {/lpf} (Abnormal) Epithelial Cells (non renal) 0-10 {/hpf} (Normal) Range: 0 - 10 RBC 0-3 {/hpf} (Normal) Range: 0 - 3 WBC 6-10 {/hpf} (Abnormal) Range: 0 - 5 :35 TSH (67096) Comments: PATIENT WAS FASTINGPERFORMED BY: [facility]6370 [facility] [id number] TSH 1.550 {uIU/mL} (Normal) Range: 0.450-4.500 :35 URINALYSIS, W/ MICRO (95392) Comments: PATIENT WAS FASTINGPERFORMED BY: [employer] Klvxrm9578 [facility] [id number] Microscopic Examination See below: (Normal) Nitrite, Urine Negative (Normal) Urobilinogen,Semi-Qn 0.2 mg/dL (Normal) Range: 0.0-1.9 Bilirubin Negative (Normal) Occult Blood Negative (Normal) Ketones Negative (Normal) Glucose Negative (Normal) Protein Negative (Normal) WBC Esterase 1+ (Abnormal) Appearance Clear (Normal) Urine-Color Yellow (Normal) pH 6.5 (Normal) Range: 5.0-7.5 Specific [place] 1.019 (Normal) Range: 1.005-1.030 :35 MICROALBUMIN: CREATININE RATIO Comments: PATIENT WAS FASTINGPERFORMED BY: [employer] Pvebhp8196 [facility] [id number] (37381) AND (60545) Microalb/Creat Ratio 7.8 {mg/g_creat} (Normal) Range: 0.0-30.0 Microalbumin, Urine 17.2 ug/mL (Abnormal) Range: 0.0-17.0 Creatinine, Urine 220.8 mg/dL (Normal) Range: 15.0-278.0 :35 METABOLIC PANEL, COMPREHENSIVE Comments: PATIENT WAS FASTINGPERFORMED BY: [facility] CenterOildbt8792 [facility] [id number] (92610) ALT (SGPT) 17 [iU]/L (Normal) Range: 0-40 [...] mg/dL (Normal) Range: 65-99 :35 LIPID PANEL (79960) Comments: PATIENT WAS FASTINGPERFORMED BY: [employer] [facility] [id number] LDL/HDL Ratio 1.0 {ratio_units} (Normal) Range: 0.0-3.2 [...] MANUAL DIFF Comments: PATIENT WAS FASTINGPERFORMED BY: Fast FiBR6370 Wu [facility] [id number] Information: [id number] (94871) Immature Grans (Abs) 0.0 {x10E3/uL} (Normal) Range: [...] (Normal) Range: 4.0-10.5 :33 HgA1C , Office (53044) HgA1C , Office 5.7 % (Normal) Range: 4.6 - 7.1 :33 Blood Glucose , Office (71812) Blood Glucose , Office 115 (Normal) 71-Wtm-959669:50 KIDNEY Radiology Report See Note (Normal) Comments: [...] Fountain MD on 07/19/11 0430 Sign by: Marcaino Fountain MD 29-Jjl-055186:50 PARATHORMONE (42120) Comments: PATIENT NOT FASTINGPERFORMED BY: [facility] Ebxjxc1793 [facility] [id number] PTH, Intact 20 pg/mL (Normal) Range: 15-65 38-Mid-023436:50 Metabolic Panel, Comments: PATIENT NOT FASTINGPERFORMED BY: LabCoOverlook Medical CenterNwsaoz7100 [facility] [id number] Information: [id number],[id number] [facility] (43560) ALT (SGPT) 23 [iU]/L (Normal) Range: 0-40 [...] Glucose, Serum 94 mg/dL (Normal) Range: 65-99 13-Hkv-672344:06 Metabolic Panel, Comments: PATIENT NOT FASTINGPERFORMED BY: LabCoOverlook Medical CenterTknrvz6069 [facility] [id number] Information: [id number],[id number] Comprehensive (30668) ALT (SGPT) 30 [iU]/L (Normal) Range: 0-40 [...] Glucose, Serum 92 mg/dL (Normal) Range: 65-99 17-Vot-54062:17 METABOLIC PANEL, Comments: PATIENT WAS FASTINGPERFORMED BY: LabCoIsabel [place] 4008270 [facility] [id number] Information: [id number] COMPREHENSIVE (66315) ALT (SGPT) 27 [iU]/L (Normal) Range: 0-40 [...] Glucose, Serum 85 mg/dL (Normal) Range: 65-99 07-Ruq-30308:17 LIPID PANEL (45982) Comments: PATIENT WAS FASTINGPERFORMED BY: LabHawthorn Center6370 [facility] [id number] LDL/HDL Ratio 1.1 {ratio_units} (Normal) Range: 0.0-3.2 LDL Cholesterol Calc 46 mg/dL (Normal) Range: 0-99 VLDL Cholesterol Yamilka 28 mg/dL (Normal) Range: 5-40 HDL Cholesterol 41 mg/dL (Normal) Comments: According to ATP-III Guidelines, HDL-C >59 mg/dL is considered anegative risk factor for CHD. Triglycerides 140 mg/dL (Normal) Range: 0-149 Cholesterol, Total 115 mg/dL (Normal) Range: 100-199 :38 Blood Glucose , Office (78901) Blood Glucose , Office 132 (Normal) :38 HgA1C , Office (34232) HgA1C , Office 5.7 % (Normal) Range: 4.6 - 7.1 39-Csd-802920:01 BILAT SCRN DIGITAL & CAD Radiology Report See Note (Normal) Comments: MAMMOGRAPHY - BILATERAL SCREENING REASON FOR EXAM: Female, 60 years old. Routine annual screeningexamination. PERTINENT HISTORY: Non-contributory. Patient complains of right upperquad rant tendern ess. TECHNIQUE: Digital examination. Mediolateral oblique (MLO) andcraniocaudad (CC) views of both breasts were obtained. CAD: CAD wasperformed on this study. COMPARISON: Comparison is made with th e outside study dated October. FINDINGS:The breast [...] biopsy of a clinically suspiciousabnormality. Dictated on 05/22/1116 by Jonn Larios MDranscribed on 05/26/11 1050 by ITS IMPORTSign by Anam Larios MD on 05/26/11 1051 S ign by: Anam Larios MD 90-Hzx-179911:01 DEXA BONE DENSITY STUDY (HP) Radiology Report [...] 05/22/11 1336 Sign by: Anam Larios MD 78-Wkx-44993:53 FECAL OCCULT HGB ASSAY- tubes sent home (31649) FECAL OCCULT HGB ASSAY, QUAL, 1-3 SIMULTANEOU negative (Normal) :32 HgA1C , Office (08919) HgA1C , Office 8.6 % (Abnormal) Range: 4.6 - 7.1 :32 Blood Glucose , Office (85389) Blood Glucose , Office 324 (Normal) :30 [...] {uIU/mL} (Normal) Range: 0.358-3.74 :45 CULTURE, SPUTUM (75194) Comments: PATIENT NOT FASTINGPERFORMED BY: LabCoOverlook Medical CenterMapwph4915 [facility] [id number] Information: SRC:[facility] [id number] Result 1 RRF (Normal) Comments: Routine respiratory hermelindo Lower Respiratory Culture Final report (Normal) :48 HgA1C , Office (91216) HgA1C , Office 5.8 % (Normal) Range: 4.6 - 7.1 :48 Blood Glucose , Office (21702) Blood Glucose , Office 124 (Normal) :20 CHEST WITH CONTRAST Radiology Report See Note (Normal) Comments: Exam Number: [id number] CLINICAL:Sarcoidosis, shortness of breath, wheezing CT CHEST [...] allunchanged. Previous cholecystectomy? Reported By: PO MANCILLA 78-Wwr-77264:15 SERUM CRE & GFR EST GFR - AA 65 mL/min (Normal) EST GFR 54 mL/min (Abnormal) CREAT,SERUM 1.1 mg/dL (Abnormal) Range: 0.6-1.0 19-Quq-005452:42 CHEST, PA AND LATERAL (MT) Radiology Report See Note (Normal) Comments: Exam Number: [id number] CHEST X- RAY PA AND LATERAL VIEWS HISTORY:Pneumonitis due to food inhalation/aspiration. FINDINGS:PA and lateral views of the chest compared to previous chest x-rayexam ination of O 2008. There is moderate-degree ofdextroscoliotic curvature thoracolumbar spine. Mild cardiomegaly.No definite evidence of focal pulmonary infiltrates or effusions arenoted. No significant interval change from previous exam. Nopneumothorax. IMPRESSION:1. No acute pulmonary findings. No significant interval changesfrom previous chest x-ray examination of September 28, 2009. Mildcardiomeg zunilda. There is moderate dextroscoliotic curvature. Reported By: Joseph Núñez 47-Nwb-046198:15 MAGNESIUM (24842) Comments: PATIENT NOT FASTINGPERFORMED BY: [employer]70 [facility] [id number] Magnesium, Serum 2.1 mg/dL (Normal) Range: 1.6-2.6 62-Rgl-992644:15 Renal function Panel Comments: PATIENT NOT FASTINGPERFORMED BY: [employer]70 [facility] [id number] Information: 800053,[id number] (42414) Albumin, Serum 4.7 g/dL (Normal) Range: 3.5-5.5 [...] (Abnormal) Range: 65-99 :46 HgA1C , Office (54480) HgA1C , Office 6.0 % (Normal) Range: 4.6 - 7.1 :46 Blood Glucose , Office (25953) Blood Glucose , Office 140 (Normal) :27 [...] T PROT 7.8 g/dL (Normal) Range: 6.4-8.2 43-Fyg-575776:11 CBC with manual diff Comments: PATIENT NOT FASTINGPERFORMED BY: LabCoOverlook Medical CenterGlmmvn2411 [facility] [id number] Information: [id number] (92796) Baso (Absolute) 0.0 {x10E3/uL} (Normal) Range: 0.0-0.2 [...] 3.80-5.10 WBC 9.0 {x10E3/uL} (Normal) Range: 4.0-10.5 91-Ikw-427256:55 Microscopic Examination Comments: PATIENT WAS FASTINGPERFORMED BY: S7 [employer]2500 [facility] [id number] BY: Ins[facility] CenterCkfpdy7801 [facility] [id number] Bacteria Few (Normal) Cast Type Hyaline casts (Normal) Mucus Threads Present (Normal) Casts Present {/lpf} (Abnormal) Epithelial Cells (non renal) 0-10 {/hpf} (Normal) Range: 0 - 10 RBC 0-3 {/hpf} (Normal) Range: 0 - 3 WBC 0-5 {/hpf} (Normal) Range: 0 - 5 37-Ulh-068154:34 HgA1C , Office (40398) HgA1C , Office 5.9 % (Normal) Range: 4.6 - 7.1 16-Udj-301963:34 Blood Glucose , Office (70805) Blood Glucose , Office 140 (Normal) 28-Zvr-163587:55 TSH (54628) Comments: PATIENT WAS FASTINGPERFORMED BY: S7 [facility] [address] [place] [address] [id number] BY: [facility] CenterKlnrqp4226 [facility] [id number] TSH 0.541 {uIU/mL} (Normal) Range: 0.450-4.500 Comments: Effective December 24, 2009, TSH reference interval for11 - 19 years will be changing to: 0.450 - 4.500 uIU/mLReference interval for all other ages will NOT be affected. 35-Epk-618794:55 URINALYSIS, W/ MICRO Comments: PATIENT WAS FASTINGPERFORMED BY: [employer] [id number] BY: Insiders S.[facility] HospitalJmxjjr7535 [facility] [id number] (47494) Bilirubin Negative (Normal) Microscopic Examination MICRON (Normal) Comments: Microscopic follows if indicated. Microscopic Examination See below: (Normal) Nitrite, Urine Negative (Normal) Occult Blood Negative (Normal) Urobilinogen,Semi-Qn 0.2 mg/dL (Normal) Range: 0.0-1.9 Glucose Negative (Normal) Ketones Negative (Normal) Protein Negative (Normal) WBC Esterase Negative (Normal) Appearance Clear (Normal) pH 6.0 (Normal) Range: 5.0-7.5 Specific [place] 1.020 (Normal) Range: 1.005-1.030 Urine-Color Yellow (Normal) :55 MICROALBUMIN: CREATININE Comments: PATIENT WAS FASTINGPERFORMED BY: [employer] [id number] BY: [facility] HospitalAmtecOverlook Medical CenterHysvzi2287 [facility] [id number] RATIO (85626) AND (12108) Microalb/Creat Ratio 7.1 {mg/g_creat} (Normal) Range: 0.0-30.0 Microalbumin, Urine 8.6 ug/mL (Normal) Range: 0.0-17.0 Creatinine, Urine 120.9 mg/dL (Normal) Range: 15.0-278.0 16-Zxs-468846:55 METABOLIC PANEL, Comments: PATIENT WAS FASTINGPERFORMED BY: [facility] HospitalTextDigger[address] [id number] BY: [place] [id number] [facility] [id number] COMPREHENSIVE (51550) ALT (SGPT) 24 [iU]/L (Normal) Range: 0-40 [...] Glucose, Serum 105 mg/dL (Abnormal) Range: 65-99 73-Szp-809296:55 LIPOPROTEIN, BLD, BY NMR Comments: PATIENT WAS FASTINGPERFORMED BY: Sarah LipTextDiggerence Xjh2322 [facility] [id number] BY: PRATIMA LabCoOverlook Medical CenterHrzndw2658 [facility] [id number] Information: [id number],I44223 (43332) Large VLDL-P 2.9 nmol/L (Abnormal) Comments: Small [...] 1599High 1600 - 2000Very high > 2000. 14-Noh-877512:55 CBC WITH MANUAL DIFF Comments: PATIENT WAS FASTINGPERFORMED BY: Sarah LipoScience Psb6428 [facility] [id number] BY: PRATIMA LabCoOverlook Medical CenterIecrcm0239 [facility] [id number] (32905) Baso (Absolute) 0.0 {x10E3/uL} (Normal) Range: 0.0-0.2 [...] Plan of Care Name Dates Details Instructions Chronic kidney disease, stage III (moderate) : Reviewed Architecture Intern Letter Indication: Chronic kidney disease, stage III (moderate) Chronic kidney disease, stage III (moderate) : Reviewed Lab Indication: Chronic kidney disease, stage III (moderate) Hypercholesteremia : Cholesterol mgmt Indication: Hypercholesteremia Atrial fibrillation : Continue Current Prescription(s) Indication: Atrial fibrillation Atrial fibrillation : Reviewed Architecture Intern Letter Indication: Atrial fibrillation Hypertension with renal disease : Continue Current Prescription(s) Indication: Hypertension with renal disease Diabetic autonomic neuropathy associated with type 2 diabetes mellitus : Follow up in 3 months Indication: Diabetic autonomic neuropathy associated with type 2 diabetes mellitus Diabetic autonomic neuropathy associated with type 2 diabetes mellitus : Eprescribed prescriptions (G8553) Indication: Diabetic autonomic neuropathy associated with type 2 diabetes mellitus Acute gout involving toe of right foot, [...] KIDNEY DISEASE, STAGE IV (SEVERE) : Reviewed Architecture Intern Letter Indication: CHRONIC KIDNEY DISEASE, STAGE IV (SEVERE) Diabetic autonomic neuropathy associated with type 2 diabetes mellitus : Follow up in 3 months Indication: Diabetic autonomic neuropathy associated with type 2 diabetes mellitus Chronic kidney disease, stage III (moderate) : Reviewed Architecture Intern Letter Indication: Chronic kidney disease, stage III [...] sequela Aspiration of food, sequela : Reviewed Architecture Intern Letter- blaise and abril Indication: Aspiration of food, sequela Hypertension, benign [...] Diagnostic Tests Indication: Sarcoidosis Sarcoidosis : Reviewed Architecture Intern Letter Indication: Sarcoidosis DM (diabetes mellitus), type 1, uncontrolled, with renal complications : Follow up in 3 months Indication: DM (diabetes mellitus), type 1, uncontrolled, with renal complications DM (diabetes mellitus), type 1, uncontrolled, with renal complications : Reviewed Lab Indication: DM (diabetes mellitus), type 1, uncontrolled, with renal complications Asthma : Continue Current Prescription(s) Indication: Asthma Asthma : Reviewed Architecture Intern Letter Indication: Asthma CHRONIC KIDNEY DISEASE, STAGE IV (SEVERE) : Reviewed Architecture Intern Letter Indication: CHRONIC KIDNEY DISEASE, STAGE IV [...] GERD (gastroesophageal reflux disease) Asthma : Reviewed Architecture Intern Letter Indication: Asthma Asthma : Continue Current Prescription(s) Indication: Asthma DM (diabetes mellitus), type 1, uncontrolled, with renal complications : Follow up in 3 months- do ekg Indication: DM (diabetes mellitus), type 1, uncontrolled, with renal complications Chronic kidney disease, stage III (moderate) : Reviewed Architecture Intern Letter Indication: Chronic kidney disease, stage III [...] typeII,controlled, renal comp Atrial fibrillation : Reviewed Architecture Intern Letter Indication: Atrial fibrillation Hypercholesteremia : Reviewed [...] Indication: Impacted fracture Impacted fracture : Reviewed Architecture Intern Letter Indication: Impacted fracture Hypertension with renal disease : BP MONITORING - SELF Indication: Hypertension with renal disease Hypertension with renal disease : Continue Current Prescription(s) Indication: Hypertension with renal disease Hypercalcemia : Reviewed Lab Indication: Hypercalcemia DM (diabetes mellitus), type 1, uncontrolled, with renal complications : Follow up in 1 week- bs ck Indication: DM (diabetes mellitus), type 1, [...] kidney disease, stage III (moderate) : Reviewed Architecture Intern Letter- Dr Ribeiro Indication: Chronic kidney disease, [...] kidney disease, stage III (moderate) : Reviewed Architecture Intern Letter Indication: Chronic kidney disease, stage III [...] kidney disease, stage III (moderate) : Reviewed Architecture Intern Letter Indication: Chronic kidney disease, stage III [...] kidney disease, stage III (moderate) : Reviewed Architecture Intern Letter Indication: Chronic kidney disease, stage III [...] kidney disease, stage III (moderate) : Reviewed Architecture Intern Letter-- dr ribeiro Indication: Chronic kidney disease, [...] kidney disease, stage III (moderate) : Reviewed Architecture Intern Letter: Dr ribeiro Indication: Chronic kidney disease, stage III (moderate) Diabetes mellitus type II, controlled : *Diabetes Education Indication: Diabetes mellitus type II, controlled Hypercholesteremia : Cholesterol mgmt Indication: Hypercholesteremia Hypertension with renal disease : Diet, Exercise, and Wt loss Indication: Hypertension with renal disease Hypertension with renal disease : HTN/CAD Red Flags Indication: Hypertension with renal disease Aspiration pneumonia : Reviewed Architecture Intern Letter Indication: Aspiration pneumonia Aspiration pneumonia : [...] kidney disease, stage III (moderate) : Reviewed Architecture Intern Letter Indication: Chronic kidney disease, stage III [...] kidney disease, stage III (moderate) : Reviewed Architecture Intern Letter- w/u in progress Indication: Chronic kidney [...] (gastroesophageal reflux disease) Planned Observations METABOLIC PANEL, BASIC (92841)Indication: Hypertension with renal disease On: 48-Rhw-595212:30 Request Comments: STAT STAT STAT STAT METABOLIC PANEL, COMPREHENSIVE (99062)Indication: Medication monitoring encounter On: 6-Bvb-035749:10 Request Parathyroid Hormone-related Peptide (PTH-rP) (30803)Indication: Hypercalcemia On: :40 Request Comments: send copy dr ribeiro CALCIUM SERUM (14960)Indication: Hypercalcemia On: :40 Request Comments: send copy to dr ribeiro ELECTROLYTES, 24 HOUR URINE (99165)Indication: Hypercalcemia On: 0-Gui-885221:49 Request POTASSIUM SERUM (36219)Indication: Hypercalcemia On: :48 Request Parathyroid Hormone-related Peptide (PTH-rP) (07277)Indication: Hypercalcemia On: :48 Request CALCIUM SERUM (97656)Indication: Hypercalcemia On: :48 Request CALCIUM URINE 84858 (72288)Indication: Hypercalcemia On: :06 Request Comments: 24 hr urine ELECTROLYTES, 24 HOUR URINE (53810)Indication: Hypercalcemia On: 02-May-20169:06 Request FECAL OCCULT- Tubes sent home (97945)Indication: Encounter for screening for malignant neoplasm of colon (Renamed from Special screening for malignant neoplasms, colon) On: 80-Cko-505423:47 Request Lipid Panel (16289)Indication: Hypercholesteremia On: 1-Qcb-247931:02 Request CALCIFIDIOL (03018) VIT D 25Indication: FATIGUE On: :38 Request Folate (81473)Indication: FATIGUE On: :38 Request VITAMIN B-12 (CYANOCOBALAMIN) (19118)Indication: FATIGUE On: :38 Request TSH (56691)Indication: FATIGUE On: :38 Request SED RATE ERYTHROCYTE (75726)Indication: FATIGUE On: :38 Request RHEUMATOID FACTOR-QUANT (56890)Indication: FATIGUE On: :38 Request METABOLIC PANEL, COMPREHENSIVE (25721)Indication: FATIGUE On: :38 Request C-REACTIVE PROTEIN (08193)Indication: FATIGUE On: :38 Request CBC (AUTO) (59435)Indication: FATIGUE On: :38 Request HEIDI (ANTINUCLEAR ANTIBODY) (30877)Indication: FATIGUE On: :38 Request CULTURE, SPUTUM (95672)Indication: Cough On: 7-Sts-571665:08 Request Metabolic Panel, Comprehensive (54687)Indication: Diabetes mellitus type 2, uncontrolled, without complications On: 49-Pdz-699544:21 Request FECAL OCCULT HGB ASSAY- tubes sent home (72422)Indication: Encounter for Medicare annual wellness exam On: 55-Qqu-83222:58 Request CALCIFIDIOL (48611) VIT D 25Indication: Vitamin D deficiency On: :48 Request MAGNESIUM (66581)Indication: Hypomagnesemia On: 64-Kpg-82043:47 Request URINE ALFONZO CULTURE (KAITLIN COL COUNT) (59092)Indication: Abdominal pain On: 72-Qkk-613800:37 Request Urinalysis, Office (49447)Indication: Abdominal pain On: 50-Idh-214303:37 Request FECAL OCCULT HGB ASSAY- tubes sent home (95684)Indication: Encounter for Medicare annual wellness exam On: 10-Cqe-10135:56 Request Metabolic Panel, Basic (93983)Indication: Chronic kidney disease, stage III (moderate) On: 33-Out-592621:11 Request POTASSIUM SERUM (38843)Indication: Hypokalemia On: 72-Sul-71066:13 Request TSH (63228)Indication: Diabetes mellitus type II, controlled On: : Request URINALYSIS, W/ MICRO (81525)Indication: Diabetes mellitus type II, controlled On: : Request MICROALBUMIN: CREATININE RATIO (76607) AND (98996)Indication: Diabetes mellitus type II, controlled On: : Request METABOLIC PANEL, COMPREHENSIVE (43205)Indication: Diabetes mellitus type II, controlled On: : Request LIPID PANEL (52666)Indication: Diabetes mellitus type II, controlled On: : Request CBC WITH MANUAL DIFF (34418)Indication: Diabetes mellitus type II, controlled On: : Request LIPOPROTEIN, BLD, BY NMR (39204)Indication: Hypercholesteremia On: 12-Ddr-439355: Request LIPID PANEL (05024)Indication: Hypercholesteremia On: 29-Lvy-150821: Request Comments: do in 3 months HEPATIC FUNCTION PANEL (27043)Indication: Hypercholesteremia On: 14-Jqj-537084: Request LIPID PANEL (70858)Indication: Hypertension, benign On: 35-Vgo-676527:33 Request Planned Encounters Medical; 3 Month FU - On: 09-Feb-2019 8:15 [facility] Azra JEAN-BAPTISTE, Veronica Jurado DO Planned Procedures Solu -Medrol Injection, 125 mg On: 18-Aug-2018 Intent (J2930)By: Kassandra Fotrune CNP Flu Vaccine (Quadrivalent) 57529Ff: On: 09-Aug-2018 Intent Veronica Oquendo DO, DO, Comments: Lot #[id number]-L dltd, IMDose prefilled syringegiven by:ANTOINE Munoz reviewed and ABN signed Veronica ELECTROCARDIOGRAM, COMPLETE (ECG) On: 09-Aug-2018 Intent (18848)By: Veronica Oquendo DO Comments: nsr - RBBB - no t acute Veronica Oquendo DO TVQN-WF-GVRA BEHAVIORAL COUNSELING On: 09-Apr-2018 Intent FOR OBESITY, 15 MINUTES (G0447)By: Veronica Oquendo DO, DO, Kathleen SCREENING DIGITAL TOMOSYNTHESIS OF On: 09-Apr-2018 Intent BREAST (32344)By: Veronica Oquendo DO, DO, Kathleen Solu- Medrol Injection, 125mg On: 01-Jan-2018 Intent (J2930)By: Veronica Oquendo DO Comments: 125mg - 1 [id number] hipYazmin LPN Veronica Oquendo DO CHEST XRAY, PA & LATERAL (32083)By: On: 23-Dec-2017 Intent Veronica Oquendo DO, DO, Veronica CHEST XRAY, PA & LATERAL (23126)By: On: 22-Dec-2017 Intent Kelsea Lund Aerosol Treatment (78507)By: On: 22-Dec-2017 Intent Kelsea Lund Comments: Still has wheezing in right lobe after aerosol treatment. Aerosol Treatment (56342)By: Azra On: 25-Nov-2017 Veronica Pabon DO, DO, Kathleen Comments: more a/e less reactivity 0-no wheeze but still that Rub in RLL area Solu- Medrol Injection, 125mg On: 25-Nov-2017 Intent (J2930)By: Veronica Oquendo DO Comments: [id number], 1vialMLONG DRAMATIC ARTS HISTORIAN Veronica Oquendo DO Solu- Medrol Injection, 125mg On: 27-Oct-2017 Intent (J2930)By: Kelsea Lund Comments: solumedrol 125mg injectionlot: [id number]: 10/2019L GMpt tolerated wellAD DRAMATIC ARTS HISTORIAN Aerosol Treatment (91171)By: On: 27-Oct-2017 Intent Kelsea Lund Comments: expiratory wheeze after albuterol aerosol treatment. EKG (73616)By: Veornica Oquendo DO On: 14-Oct-2017 Intent Veronica Oquendo DO Comments: nsr no acute chg- RBBB Aerosol Treatment (77857)By: Azra On: 14-Aug-2017 Intent Veroniac JEAN-BAPTISTE DO, Kathleen Comments: no noise and more a/e Solu- Medrol Injection, 125mg On: 14-Aug-2017 Intent (J2930)By: Veronica Oquendo DO Comments: lot [id number] mgright gmIMas, DRAMATIC ARTS HISTORIAN Veronica Oquendo DO Solu- Medrol Injection, 125mg On: 05-Aug-2017 Intent (J2930)By: Veronica Oquendo DO Comments: Lot:[id number]:11/17Dose:125mgRoute:imSite:r hipGiven By:MICHAEL signed Veronica Oquendo DO Flu Vaccine (Quadrivalent) 90686Kw: On: 28-Jul-2017 Intent Veronica Oquendo DO, DO, Kathleen ELECTROCARDIOGRAM, COMPLETE (ECG) On: 28-Jul-2017 Intent (62498)By: Veronica Oquendo DO, DO, Kathleen IV Needle placement (09461)By: On: 14-Jul-2017 Intent Kassandra Fortune CNP ORTHOSTATIC BLOOD PRESSURE On: 14-Jul-2017 Intent ASSESSMENT (47682)By: Kassandra Fortune CNP INFUSION, NORMAL SALINE SOLUTION , On: 14-Jul-2017 Intent 1000 CC (Special Coverage Instructions Apply. See MCM: 2049) (J7030)By: Kassandra Fortune CNP Solu -Medrol Injection, 125 mg On: 22-Jun-2017 Intent (J2930)By: Kelsea Lund Solu- Medrol Injection, 125mg On: 17-Apr-2017 Intent (J2930)By: Veronica Oquendo DO Comments: Lot:[id number]:04/2019Dose:125mgRoute:imSite:l armGiven By:NOE signed Veronica Oquendo DO DEXA SCAN AXIAL SKELETON (39605)By: On: 06-Apr-2017 Intent Veronica Oquendo DO, DO, Kathleen SCREENING DIGITAL TOMOSYNTHESIS OF On: 06-Apr-2017 Intent BREAST (33489)By: Veronica Oquendo DO, DO, Kathleen Flu Vaccine (Quadrivalent) 74528Yx: On: 20-Aug-2016 Intent Veronica Oquendo DO, DO, Comments: FLUlot: [id number]:05/29/17site:Lt deltoidroute:IMdose:.5mlDEVALENTINA CHOWDARY Veronica Solu- Medrol Injection, 125mg On: 20-Aug-2016 Intent (J2930)By: Veronica Oquendo DO Comments: solumedrollot:[id number]:03/18site:lt glutroute:IMdose:125mgDVALENTINA Calderón DO, Kathleen Solu -Medrol Injection, 125 mg On: 13-Aug-2016 Intent (J2930)By: Kassandra Fortune CNP Comments: Lot:[id number]:02/2019Dose:125mgRoute:imSite:l hip Given By:NOE signed Aerosol Treatment (82357)By: Irma On: 13-Aug-2016 Intent Clarisse SCHWARZ Radiology - Shoulder - LeftBy: Devika On: 04-Jul-2016 Intent Kassandra LUU Radiology - Knee - LeftBy: Devika On: 04-Jul-2016 Intent Kassandra LUU Comments: send result to Dr. Delgadillo Toradol Injection, 30 mg (J1885)By: On: 04-Jul-2016 Intent Kassandra Fortune CNP Aerosol Treatment (12377)By: Azra On: 12-May-2016 Intent Veronica JEAN-BAPTISTE DO, Kathleen Comments: less cough and more a./e- no wheeze Solu- Medrol Injection, 125mg On: 12-May-2016 Intent (J2930)By: Veronica Oquendo DO Comments: lot: [id number]: 12/18site/route: RGM/IMamt: 2mLVIS signed when applicableSTARR Lui DO, Kathleen CT - Chest (IV Contrast Needed)By: On: 09-May-2016 Intent Veronica Oquendo DO, DO, Kathleen Radiology - Chest- PA and LatBy: On: 08-May-2016 Intent Veronica Oquendo DO, DO, Kathleen PNEUM VAC ADLT/IMUMNOSPR, SBC/INTRM On: 21-Apr-2016 Intent (60194)By: Veronica Oquendo DO Comments: pneumovaxlot:[id number]:09/06/17site:lt deltroute:IMDVALENTINA Calderón DO, Kathleen WZUQ-SB-DRYD BEHAVIORAL COUNSELING On: 21-Apr-2016 Intent FOR OBESITY, 15 MINUTES (G0447)By: Veronica Oquendo DO, DO, Kathleen MAMMOGRAM, SCREENING, BOTH BREAST On: 21-Apr-2016 Intent (03648)By: Veronica Oquendo DO, DO, Veronica Radiology - Knee - RightBy: Azra On: 14-Apr-2016 Intent Veronica JEAN-BAPTISTE DO, Kathleen Radiology - Knee - LeftBy: Azra On: 14-Apr-2016 Intent Veronica JEAN-BAPTISTE DO, Kathleen ADMINISTRATION OF INFLUENZA VIRUS On: 09-Aug-2015 Intent VACCINE (G0008)By: Veronica Oquendo DO, DO, Kathleen Flu Vaccine (Quadrivalent) 44517Kt: On: 09-Aug-2015 Intent Veronica Oquendo DO, DO, Comments: Lot:[id number]:02/27/16Dose:0.5mLRoute:IMSite:L DltdGiven By:NOE signed Veronica Solu -Medrol Injection, 125 mg On: 03-Aug-2015 Intent (J2930)By: Veronica Oquendo DO Comments: Lot:[id number]:12/2017Dose:125mgRoute:imSite:l armGiven By:NOE signed Veronica Oquendo DO Aerosol Treatment (08554)By: Azra On: 03-Aug-2015 Veronica Pabon DO, DO, Kathleen Comments: more a/e after aerosol EKG (89242)By: Veronica Oquendo DO On: 19-Jul-2015 Intent Veronica Oquendo DO Comments: ming botello -- no new twave chg when compared to old ones Aerosol Treatment (99183)By: Azra On: 30-Apr-2015 Veronica Pabon DO, DO, Kathleen Radiology - Chest- PA and LatBy: On: 27-Apr-2015 Intent Veronica Oquendo DO DOVeronica DEXA SCAN AXIAL SKELETON (08433)By: On: 17-Apr-2015 Intent Veronica Oquendo DO, DO, Kathleen INTENSIVE BEHAVIORAL THERAPY TO On: 17-Apr-2015 Intent REDUCE CARDIOVASCULAR DISEASE RISK, INDIVIDUAL, ZVHZ-IL-QPGW, ANNUAL, 15 MINUTES (G0446)By: Veronica Oquendo DO Azra DOVeronica YFEY-XB-JOEB BEHAVIORAL COUNSELING On: 17-Apr-2015 Intent FOR OBESITY, 15 MINUTES (G0447)By: Veronica Oquendo DO DOVeronica MAMMOGRAM, SCREENING, BOTH BREAST On: 17-Apr-2015 Intent (07970)By: Veronica Oquendo DO, DO, Kathleen EKG (46632)By: Veronica Oquendo DO On: 16-Aug-2014 Intent Veronica Oquendo DO Comments: nsr nonspecif st and t wave chg old not new Radiology - Chest- PA and LatBy: On: 15-May-2014 Intent Veronica Oquendo DO, DO, Kathleen Toradol Injection, 30 mg (J1885)By: On: 12-May-2014 Intent Devika LUU Kassandra Vargas Comments: Lot:[id number]:10/30/15Dose:30mgRoute:imSite:sissy hipGiven By:NOE signed Eprescribed prescriptions (G8553)By: On: 01-May-2014 Intent Veronica Oquendo DO DOVeronica MAMMOGRAM, SCREENING, BOTH BREASTS On: 18-Apr-2014 Intent (65387)By: Veronica Oquendo DO DOVeronica VFEH-RO-CKLI BEHAVIORAL COUNSELING On: 18-Apr-2014 Intent FOR OBESITY, 15 MINUTES (G0447)By: Veronica Oquendo DO DOVeronica Eprescribed prescriptions (G8553)By: On: 11-Apr-2014 Intent Veronica Oquendo DO Azra DO, Veronica Pulse Oximetry (98454)By: Azra JEAN-BAPTISTE, On: 11-Apr-2014 Intent Veronica Jurado DO Aerosol Treatment (08371)By: Devika On: 27-Sep-2013 Intent GED PREPARATION TEACHERKassandra ZBCG-LX-TCTI BEHAVIORAL COUNSELING On: 12-Sep-2013 Intent FOR OBESITY, 15 MINUTES (G0447)By: Veronica Oquendo DO, DO, Kathleen MAMMOGRAM, SCREENING, BOTH BREASTS On: 12-Sep-2013 Intent (46517)By: Kelsea Richards LPN DRAIN/INJECT MAJOR JOINT OR BURSA On: 24-Aug-2013 Intent ()By: Kelsea Richards LPN Comments: [id number] exp 08/13 DRAIN/INJECT MAJOR JOINT OR BURSA On: 24-Aug-2013 Intent ()By: Kelsea Richards LPN Comments: lt knee lot [id number] exp 08/13 DRAIN/INJECT MAJOR JOINT OR BURSA On: 18-Aug-2013 Intent ()By: Kelsea Richards LPN Comments: lt knee lot [id number] exp 07/13 DRAIN/INJECT MAJOR JOINT OR BURSA On: 18-Aug-2013 Intent ()By: Kelsea Richards LPN Comments: rt knee lot [id number] exp 07-13 FLU VAC, SPLIT, >3 YEARS, INTRAMUSC On: 10-Aug-2013 Intent (89396)By: Veronica Oquendo DO Comments: lot [id number] 2014site/route L sabas, IMamt 0.5mlVIS and ABN signed when applicableSTARR Lui DO, Kathleen ADMINISTRATION OF INFLUENZA VIRUS On: 10-Aug-2013 Intent VACCINE (G0008)By: Sania Ritchie DRAIN/INJECT MAJOR JOINT OR BURSA On: 10-Aug-2013 Intent ()By: Kelsea Richards LPN Comments: euflexxa injection lt knee lot [id number] exp 07/13 DRAIN/INJECT MAJOR JOINT OR BURSA On: 10-Aug-2013 Intent ()By: Kelsea Richards LPN Comments: euflexxa injection rt knee lot [id number] exp 07/13 Solu- Medrol Injection, 125mg On: 03-Aug-2013 Intent (J2930)By: Veronica Oquendo DO Comments: injected over Left sciatic area - most tender spot marked - no bleed pt tolerated well -- 08/03/13 lot # Veronica Oquendo DO Eprescribed prescriptions (G8553)By: On: 03-Aug-2013 Intent Sania Ritchie Kenalog Injection, 10 mgm On: 21-Jul-2013 Intent (J3301)By: Veronica Oquendo DO Comments: used 40 mglot: [id number]: 02/11site/route: RGM/IMamt: 40VIS signed when applicableChelsSTARR randolph DO, Kathleen Nuclear Stress Test/Stress On: 21-Jul-2013 Intent SPECT/AdenosineBy: Azra JEAN-BAPTISTE, Comments: needs adenosine - bc 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 Veronica Jurado DO Echo CompleteBy: Veronica Oquendo DO On: 21-Jul-2013 Intent Veronica Oquendo DO Spirometry (11781)By: Azra JEAN-BAPTISTE, On: 21-Jul-2013 Intent Veronica Jurado DO Comments: mild obstruction EKG (96104)By: Veronica Oquendo DO On: 21-Jul-2013 Intent Veronica Oquendo DO Comments: nsr no acute chg - t wave inversion ant septal leads - st depression in lateral precordial leads ZDEQ-EY-UMQG BEHAVIORAL COUNSELING On: 21-Jul-2013 Intent FOR OBESITY, [...] Intent (J2930)By: Kassandra Fortune CNP Comments: Lot: [id number]: 12/2015Amt: 125mgRoute: IMSite: RUOQ glutealGiven by: CHONG Canas EKG (13838)By: Veronica Oquendo DO On: 11-Apr-2013 Intent Veronica Oquendo DO Comments: nsr no acute chg the same nonspecific st flattening in v1v2 are presnet on old ekg's Spirometry (09405)By: Azra JEAN-BAPTISTE, On: 11-Apr-2013 Intent Veronica Jurado DO Comments: such poor technique cnt report a FEV Eprescribed prescriptions (G8553)By: On: 16-Sep-2012 Intent Kelsea Richards LPN FLU VAC, SPLIT, >3 YEARS, INTRAMUSC On: 02-Sep-2012 Intent (15269)By: Veronica Oquendo DO Comments: Lot #[id number]-5/30/13Site-left deltoidgiven by: CHONG Patrick DO, Kathleen ADMINISTRATION OF INFLUENZA VIRUS On: 02-Sep-2012 Intent VACCINE (G0008)By: Veronica Oquendo DO, DO, Kathleen QMUL-NY-LDFM BEHAVIORAL COUNSELING On: 02-Sep-2012 Intent FOR OBESITY, 15 MINUTES (G0447)By: Veronica Oquendo DO, DO, Kathleen SPECIMEN HNDLNG/TRNSPRT, OFFC > LAB On: 04-Aug-2012 Intent (04621)By: Suki Gutiérrez LPN MAMMOGRAM, SCREENING, BOTH BREASTS On: 28-Jul-2012 Intent (38088)By: Veronica Oquendo DO, DO, Kathleen EKG (11409)By: Veronica Oquendo DO On: 17-Jun-2012 Intent Veronica Oquendo DO Comments: nsr no acute chg Overnight Pulse Ox([id number])By: Mast On: 11-May-2012 Intent Suzy RUIZ Spirometry ([id number])By: Azra JEAN-BAPTISTE, On: 17-Mar-2012 Intent Veronica Jurado DO Comments: poor technique- stable -- FLU VAC, SPLIT, >3 YEARS, INTRAMUSC On: 01-Sep-2011 Intent ([id number])By: Kelsea Richards LPN Comments: given at health clinic not here Eprescribed prescriptions ([id number])By: On: 29-Jul-2011 Intent Kelsea Richards LPN Ultrasound - RenalBy: Devika LUU, On: 15-Jul-2011 Intent Dasia PNEUM VAC ADLT/IMUMNOSPR, SBC/INTRM On: 09-May-2011 Intent ([id number])By: Veronica Oquendo DO, DO, Kathleen IMMUNIZ ADMNIN, 1 VAC, SNGL/COMBO On: 09-May-2011 Intent ([id number])By: Veronica Oquendo DO, DO, Kathleen DXA, BONE DENSITY, AXIAL SKELETON On: 09-May-2011 Intent ([id number])By: Kelsea Richards LPN MAMMOGRAM, SCREENING, BOTH BREASTS On: 09-May-2011 Intent ([id number])By: Kelsea Richards LPN Clinical Breast Examination On: 09-May-2011 Intent ([id number])By: Kelsea Richards LPN TDAP VACCINE >7 IM ([id number])By: Azra On: 16-Apr-2011 Intent Veronica JEAN-BAPTISTE DO, Kathleen Comments: Lot #[id number]-right deltoidgiven by: Alisa Vee LPN PULMONARY STRESS TEST/SIMPLE On: 04-Mar-2011 Intent ([id number])By: Veronica Oquendo DO Comments: pt unable to complete fulol test due to shortess of breath. Pt completed 3 minutes of assessment. Veronica Oquendo DO EKG ([id number])By: Veronica Oquendo DO On: 03-Mar-2011 Intent Veronica Oquendo DO Comments: nsr no acute changes Pulse Oximetry ([id number])By: Devika LUU, On: 29-Jan-2011 Intent Dasia Solu- Medrol Injection, 125mg On: 29-Jan-2011 Intent ([id number])By: Kassandra Fortune CNP Pulse Oximetry ([id number])By: Bernardo RN, On: 29-Jan-2011 Intent Suzy IMMUNIZ ADMNIN, 1 VAC, SNGL/COMBO On: 04-Sep-2010 Intent ([id number])By: Lisa Blood FLU VAC, SPLIT, >3 YEARS, INTRAMUSC On: 04-Sep-2010 Intent ([id number])By: Lisa Blood Comments: Lot:[id number]:02/2011Dose:0.5MLRoute:IMSite:left deltoidGiven by: VALENTINA Saleem CT - Chest (IV Contrast Needed)By: On: 20-Jun-2010 Intent Veronica Oquendo DO, DO, Kathleen Echo CompleteBy: Veronica Oquendo DO On: 20-Jun-2010 Intent Veronica Oquendo DO Radiology - ChestBy: Devika LUU Kassandra On: 27-May-2010 Intent E Aerosol Treatment ([id number])By: Devika On: 27-May-2010 Intent BELL Dasia Pulse Oximetry ([id number])By: Devika LUU, On: 27-May-2010 Intent Kassandra Vargas Ultrasound - LiverBy: Azra JEAN-BAPTISTE, On: 07-Mar-2010 Intent Veronica Jurado DO Spirometry ([id number])By: Azra JEAN-BAPTISTE, On: 07-Mar-2010 Intent Veronica Jurado DO Comments: mild obstrucition EKG ([id number])By: Veronica Oquendo DO On: 14-Dec-2009 Intent Veronica Oquendo DO Comments: nsr poor R wave progression-- will request old ekg to compare Spirometry ([id number])By: Azra JEAN-BAPTISTE, On: 14-Dec-2009 Intent Veronica Jurado DO Comments: mild obstructive disease but some technique off Planned Medications INFUSION, NORMAL SALINE SOLUTION , 1000 CC Ordered: 14-Jul-2017 Pending Devika LUU Dasia INJECTION, KETOROLAC TROMETHAMINE, PER 15 MG Ordered: 12-May-2014 Pending Devika LUU Dasia INJECTION, KETOROLAC TROMETHAMINE, PER 15 MG Ordered: 04-Jul-2016 Pending Chioesdevin LUU, Dasia INJECTION, METHYLPREDNISOLONE SODIUM SUCCINATE, UP TO 125 MG Ordered: 29-Jan-2011 Pending Devika LUU Dasia INJECTION, METHYLPREDNISOLONE SODIUM SUCCINATE, UP TO 125 MG Ordered: 25-Nov-2017 Pending Veronica Oquendo DO, DO, Kathleen INJECTION, METHYLPREDNISOLONE SODIUM SUCCINATE, UP TO 125 MG Ordered: 27-Oct-2017 Pending Kelsea Lund INJECTION, METHYLPREDNISOLONE SODIUM SUCCINATE, UP TO 125 MG Ordered: 14-Aug-2017 Pending Azra DO, Veronica Azra DO, Veronica INJECTION, METHYLPREDNISOLONE SODIUM SUCCINATE, UP TO 125 MG Ordered: 05-Aug-2017 Pending Azra DOVeronica Azra DO, Veronica INJECTION, METHYLPREDNISOLONE SODIUM SUCCINATE, UP TO 125 MG Ordered: 22-Jun-2017 Pending Kelsea Lund INJECTION, METHYLPREDNISOLONE SODIUM SUCCINATE, UP TO 125 MG Ordered: 17-Apr-2017 Pending Azra DO, Veronica Azra DO, Veronica INJECTION, METHYLPREDNISOLONE SODIUM SUCCINATE, UP TO 125 MG Ordered: 20-Aug-2016 Pending Azra DO, Veronica Azra DO, Veronica INJECTION, METHYLPREDNISOLONE SODIUM SUCCINATE, UP TO 125 MG Ordered: 13-Aug-2016 Pending Ciesa GED PREPARATION TEACHER, Dasia INJECTION, METHYLPREDNISOLONE SODIUM SUCCINATE, UP TO 125 MG Ordered: 12-May-2016 Pending Azra DOShanonVeronica Azra DO, Veronica INJECTION, METHYLPREDNISOLONE SODIUM SUCCINATE, UP TO 125 MG Ordered: 03-Aug-2015 Pending Azra DO, Veronica Azra DO, Veronica INJECTION, METHYLPREDNISOLONE SODIUM SUCCINATE, UP TO 125 MG Ordered: 03-Aug-2013 Pending Azra DO, Veronica Azra DO, Veronica INJECTION, METHYLPREDNISOLONE SODIUM SUCCINATE, UP TO 125 MG Ordered: 03-Jun-2013 Pending Chioesa GED PREPARATION TEACHER, Dasia INJECTION, METHYLPREDNISOLONE SODIUM SUCCINATE, UP TO 125 MG Ordered: 01-Jan-2018 Pending Azra DOVeronica Azra DO, Veronica INJECTION, METHYLPREDNISOLONE SODIUM SUCCINATE, UP TO 125 MG Ordered: 18-Aug-2018 Pending Ciesa GED PREPARATION TEACHER, Dasia INJECTION, TRIAMCINOLONE ACETONIDE, NOT OTHERWISE SPECIFIED, 10 MG Ordered: 21-Jul-2013 Pending Shanon Oquendo DOhleen Azra DO, Veronica Instructions Name Dates Details Diabetic autonomic neuropathy associated with type 2 diabetes mellitus : How to access health information online Indication: Diabetic autonomic neuropathy associated with type 2 diabetes mellitus Diabetic autonomic neuropathy associated with type 2 diabetes mellitus : How to access health information online - Detail Indication: Diabetic autonomic neuropathy associated with type 2 diabetes mellitus Diabetic autonomic neuropathy associated with type 2 diabetes mellitus : Patient Instructions Indication: Diabetic autonomic neuropathy associated with type 2 diabetes mellitus BMI 38.0-38.9,adult : Patient Instructions Indication: BMI [...] foot : DISCONTINUED - RENAL FUNCTION PANEL ([id number]) Indication: Gout of right foot Gout of right foot : DISCONTINUED - URIC ACID BLOOD (46497) Indication: Gout of right foot Hypertension with renal disease : DISCONTINUED - MAGNESIUM (91628) Indication: Hypertension with renal disease Hypertension with renal disease : DISCONTINUED - POTASSIUM SERUM (24747) Indication: Hypertension with renal disease Diarrhea : [...] Indication: Diabetes mellitus type II, controlled Encounters Lab Order On: 10-Nov-2018 17:29 Encounter Diagnosis: Hypertension with renal disease End: 10-Nov-2018 17:31 [facility] Office Visit On: 08-Nov-2018 8:21 Encounter Reason: Follow up for chronic medical issues - The patient does not feel well, has decreased energy level and is sleeping well. Patient has been compliant with instructions. Current medication use: no side effe End: 08-Nov-2018 9:35 cts and compliant with dosing regimen. Patient sleeps 6 hours per night. Nutrition: balanced diet and no supplemental vitamins & iron. The medical issues the patient is following up for include All identified problems below, blood sugar issues, cardiac issues, high blood pressure, high cholesterol, kidney problems and other. blood pressure range :, fasting blood sugars : and weight :.Encounter Diagnosis: Non-smoker, BMI 38.0-38.9,adult, Diabetic autonomic neuropathy associated with type 2 diabetes mellitus, Asthma, Hypertension with renal disease, Vitamin D deficiency, Obstructive sleep apnea, adult, Atrial fibrillation, Hypercholesteremia, Sarcoidosis, Elevated uric acid in blood, Chronic kidney disease, stage III (moderate) (585.3) [facility] Office Visit On: 25-Aug-2018 9:37 Encounter Reason: [...] ng preventative measures: mammography (2016) and colonoscopy (2016). The patient does have durable power of banking attorney and living will. The patient has noticed nothing from the geriatic depression scale. Other providers contributing to the patient's care are adobe ball mixer, lpn rn hospice, cafeteria or lunchroom checker and other:.Encounter Diagnosis: BMI 38.0-38.9,adult, Nonsmoker, Annual [...] the patient is following up for inc nicke All identified problems below, blood sugar issues, [...] has completed the following preventative measures: mammography (2014) and colonoscopy (Thinks 2 years ago, with Dr. Montiel). The patient does have durable power of banking attorney and livin g will. The patient has noticed lack of energy. Other providers contributing to the patient's care are gastrologist, cafeteria or lunchroom checker and other: (pain management, podiatry).Encounter Diagnosis: Body [...] up tests - Date: (discuss Ca - 5-31 and 6-).Encounter Diagnosis: Hypercalcemia (275.42), DM (diabetes [...] patient does not have durable power of banking attorney or living will. The patient has noticed nothing from the [facility] [place]. Other providers contributing to the patient's care are cafeteria or lunchroom checker and other:.Encounter Diagnosis: Annual Medicare Phyiscal WITHOUT [...] patient does not have durable power of banking attorney or living will. The patient has [...] the patient is following up for inc nicke All identified problems below, blood sugar issues, [...] care from a hospital (inhaled hamburger and latvian rice and she was in hosp from [...] providers contributing to the patient's care are lpn rn hospice (margaret saravia), cafeteria or lunchroom checker (dr. hayes) and other: (dr. zincdr. leedr. [...] providers contributing to the patient's care are lpn rn hospice (valdez has an appt with Dr Hammer this month at [facility] gastrologist (Michele), cafeteria or lunchroom checker (Dr Hayes) and urologist (Dr Mayes).Encounter Diagnosis: [...] [facility] Payers MedicareTRICARE FOR LIFE, WPS/MCARE CROSSOVERMedicareRusophia Ling; a guarantor
--- OUTSIDE RECORDS SUMMARY | 2018-12-08 05:25 | XMS RPT_ITS | Continuity of Care Document ---
:1950 Author Organization [facility] Address [address] [place] [address] Phone Care Team Providers Name Role Phone Veronica Oquendo DO Unavailable Octavio Delgado Unavailable Nghia Bautista MD Unavailable Lobito Kauffman DO Unavailable Derrell Palumbo Unavailable Unavailable Messenger, CUSTOMER SERVICE SUPERVISOR Kelsea Unavailable Unavailable Stephanie Rodriguez Unavailable Unavailable [...] occurred s/p surgery - saw cardio in [place] had stress test and it was normal [...] after 2weeksdriving to see Dr Ribeiro in [place] Status: Active CHRONIC OBSTRUCTIVE ASTHMA WITH (ACUTE) [...] Quantity: 90 {Tablet} Refills: 3 Ordered:25-Aug-2018 Cade Oquedno DO, DO, Kathleen Start : 25-Aug-2018 Active MiraLax Oral Packet 1 (one) Packet 17 g daily for 90 days Quantity: 90 {Packet} Refills: 3 Ordered:25-Aug-2018 Cade Oquendo DO, DO, Kathleen Start : 25-Aug-2018 Active Lafayette 5-325 MG Oral Tablet 1 (one) Tablet [...] DO, Kathleen Start : 25-Aug-2018 Active Pen Bernie /16 31G X 5 MM Miscellaneous 1 [...] Quantity: 3 {Inhalation} Refills: 3 Ordered:25-Aug-2018 Cade Oquedno DO, DO, Kathleen Start : 25-Aug-2018 Active [...] Quantity: 30 {Tablet} Refills: 3 Ordered:03-Mar-2011 Kelsea Rcihards LPN Start : 27-May-2010 End : 03-Mar-2011 [...] 14 {Tablet} Refills: 0 Ordered:14-Jul-2017 Devika LUU Dasia Start : 14-Jul-2017 End : 21-Jul-2017 Inactive [...] End : 10-Apr-2016 Inactive VITAMIN D (ERGOCALCIFEROL), 46485VDFP (Oral Capsule) 1 (one) Capsule daily for [...] Discontinued Comments:Dispense mini needles CALCIUM + D, [phone]-MG-IU (PO Cap) 2 qd for 0 days [...] for 0 days Refills: 0 Ordered:03-Jun-2013 Suki Gutiérerz LPN End : 03-Jun-2013 Discontinued Comments:This order [...] 3 Views Result: Comments: See Note; NOTES: [facility] Imaging Services [address] [place] [address] Lumbar Spine 2 or 3 Views MR#: [id number] Acct: [id number] Name: SUGEY LING Rep #: [id number] : 1950 F 67 From: Dwight Choudhury DO PCP: Veronica Oquendo DO Status: REG CLI Study: Lumbar Spine 2 or 3 Views Date of Exam: 10/26/18 Exam# [id number] Ordering Dr: Chetan Medina MD STUDY: X-RA [...] CC: Chetan Medina MD; Veronica Oquendo DO Safety Clothing And Equipment Developer: Signed 22-May-2018 Orthopedic Visit Report Result: Comments: See Note; NOTES: [facility] Orthopaedics AND Sports Medicine [address] [place] [address] OFFICE VISIT Date of Service: 05/11/18 MR#: [id number] Acct: [id number] Name: SUGEY LING Rep #: [id number] : 1950 Provider: Tia Chirinos MD Age/Sex: 67/F Location: [facility] Status: Signed Intake Intake Visit Reasons: LOW [...] [History Confirmed 01/07/18] Fluticasone 0.05% [Flonase Nasal Sulphur] 1 spray NASAL DAILY 06/21/17 [History Confirmed 01/07/18] Fluticasone/Salmeterol [Advair 500/50 Mcg Diskus] 1 puff INHALATION BID 06/21/17 [History Confirmed 01/08/18] Furosemide [Lasix] 40 mg PO DAILY PRN PRN 06/21/17 [History Confirmed 01/07/18] Insulin Detemir [Levemir (BKC)] 24 units SC QHS 06/21/17 [History Con firmed 01/08/18] [place]-3S/Dha/Epa/Fish Oil [Fish Oil 1,200 mg Softgel] 1 ea PO DAILY 06/21/17 [History Confirmed 01/07/18] Pantoprazole Sodium [Protonix] 40 mg PO BID 06/21/17 [History Confirmed 8] Tiotropium [place] [Spiriva Respimat] 2 puff IH DAILY 06/21/17 [...] nothin g. 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 verify rep who would not clear her for a [...] (CAD), BILAT Result: Comments: See Note; NOTES: [facility] Imaging Services [address] [place] [address] SCREENING MAMM (CAD), BILAT MR#: [id number] Acct: [id number] Name: SUGEY LING Rep #: [id number] : 1950 F 67 From: Anam Larios MD PCP: Veronica Oquendo DO Status: [facility] Study: SCREENING MAMM (CAD), BILAT Date of Exam: 05/20/18 Exam# [id number] Ordering Dr: Veronica Oquendo MAMMOGRAPHY - BILATERAL [...] delay biopsy of a clinically suspicious abnormality. [id number] Electronically Signed: Anam Larios MD at 7:57 EDT Tel [phone], Service jolly pport , CC: Veronica Oquendo DO Safety Clothing And Equipment Developer: Signed 29-Jan-2018 Modified Barium Swallow Study Result: Comments: See Note; NOTES: [facility] Speech Pathology [address] [address] Modified Barium Swallow Study MR#: [id number] Acct: [id number] Name: SUGEY LING Rep #: [id number] : 1950 67 From: Eliezer Duke M.A., CFY-ACCOUNTS RECEIVABLE ACCOUNTANT PRIMARY / SECONDARY DIAGNOSIS: dysphagia (R13.10) REFERRING [...] Patien t inhaled pieces of hamburger and Cymro rice. 04/26/2014 underwent bronchoscopy with bronchial lavage and foreign body removal after aspirating rice during intake of hamburger and Cymro rice. 2017 CT/Chest revealed old granulomatous disease; no acute pulmonary abnormality; resolution of the right lower lobe infiltrate seen on the prior CT. 12/31/2017 CXR revealed cardiomegaly; pectus excavat um deformity; no acute abnormality is seen. 01/08/2018 underwent bronchoscopy with bronchial lavage and foreign body removal after aspirating rice during intake of Spanish food with resulting pneumoniti s of both food and emesis with bronchospasm, documentation reveals history of esophageal strictures with plans for unix architect referral for possible esophageal dilatation. Patient reports [...] Thin liquids via cup (single sip): 1 Dumfries thickened liquids via cup (single sip) : 1 Dumfries thickened liquids via cup (single sip): 2 Dumfries thickened liquids via cup (single sip): 1 [...] l functioning, with workup currently underway via unix architect. Patient able to comprehend and express recommended [...] 1520 <Electronically signed by Eliezer Duke M.A., CFY-ACCOUNTS RECEIVABLE ACCOUNTANT> Date Eliezer Duke M.A. CFY-ACCOUNTS RECEIVABLE ACCOUNTANT Co-Signature Required for all Medicare patients Date/Time Co-Signature CC: 29-Jan-2018 Swallowing Function w/Video Result: Comments: See Note; NOTES: [facility] Imaging Services [address] [place] [address] Swallowing Function w/Video MR#: [id number] Acct: [id number] Name: SUGEY LING Rep #: [id number] : 1950 F 67 From: Anam Larios MD PCP: Veronica Oquendo DO Status: REG CL Study: Swallowing Function w/Video Date of Exam: 01/29/18 Exam# [id number] Ordering Dr: Isaías Stroud MD STUDY: SWALLOWING [...] Anam Larios MD at 14:25 EST Tel [phone], Service support , CC: Veronica Stroud Safety Clothing And Equipment Developer: Signed 30-Dec-2017 Chest PA and Lateral Result: Comments: See Note; NOTES: [facility] Imaging Services [address] [place] [address] Chest PA and Lateral MR#: [id number] Acct: [id number] Name: SUGEY LING Rep #: [id number] : 1950 F 67 From: Anam Larios MD PCP: Veronica Oquendo DO Status: REG CLI Study: Chest PA and Lateral Date of Exam: 12/30/17 Exam# [id number] Ordering Dr: Octavio Delgado MD STUDY: X- [...] Anam Larios MD at 12:54 EST Tel [phone], Service support , CC: Veronica Oquendo DO; Octavio Delgado MD Safety Clothing And Equipment Developer: Signed 22-Dec-2017 Chest PA and Lateral Result: Comments: See Note; NOTES: [facility] Imaging Services [address] [place] [address] Chest PA and Lateral MR#: [id number] Acct: [id number] Name: SUGEY LING Rep #: [id number] : 1950 F 67 From: Ronnie [place] MD PCP: Veronica Oquendo DO Status: REG CLI Study: Chest PA and Lateral Date of Exam: 12/22/17 Exam# [id number] Ordering Dr: Kelsea Lund COKE DRAWER HAND-C STUDY: X-RAY C HEST REASON FOR EXAM: [...] , CC: NAKIA Lund; Veronica Oquendo DO Safety Clothing And Equipment Developer: Signed 04-Dec-2017 Chest without Contrast Result: Comments: See Note; NOTES: [facility] Imaging Services [address] [place] [address] Chest without Contrast MR#: [id number] Acct: [id number] Name: SUGEY LING Rep #: [id number] : 1950 F 67 From: Rogelio Alston DO PCP: Veronica Oquendo DO Status: REG CLI Study: Chest without Contrast Date of Exam: 12/04/17 Exam# [id number] Ordering Dr: Octavio Delgado MD STUDY: CT [...] Rogelio Alston DO at 13:14 EST Tel [phone], Service support , CC: Veronica Oquendo DO; Octavio Delgado MD Safety Clothing And Equipment Developer: Signed 17-Nov-2017 Emergency Department Summary Result: Comments: See Note; NOTES: [facility] Medical Records Department [address] [place] [address] Emergency Department Summary 11/16/17 1811 MR#: [id number] Acct: [id number] Name: SUGEY LING Rep #: [id number] : 1950 66 From: Lobito Lee MD [...] a prednisone taper and sees a pul bacon stringer. I believe that she should continue her [...] Aspiration event This note was generated with [employer]Mov[employer] dictation software. It may contain incorrect words, spelling, and punctuation that were not noted in review of the chart prior to signing ED Disposition - Plan for ED Patient: Disposition: Home or As sisted Living Chief Complaint: Shortness of Breath Diagnosis: Aspiration into airway Instructions: Dysphagia: Exercises, ED Choking Spell Referrals: Veronica Oquendo, [Primary Care Provider] - 5-7 Da ys What to do if you have Problems For any increased pain, shortness of breath, bleeding, nausea or vomiting, chest pain, or any unexpected problems, contact your Primary Care Provider. Call Doctors Registry ([phone]) or report to the closest Emergency Room. Call 911 if necessary. 11/17/17 0054 <Electronically signed by Lobito Lee MD> Date Lobito Lee MD Cosigner Signature (If Indicated): Date CC: Veronica Oquendo DO 16-Nov-2017 Chest PA and Lateral Result: Comments: See Note; NOTES: [facility] Imaging Services [address] [place] [address] Chest PA and Lateral MR#: [id number] Acct: [id number] Name: SUGEY LING Devin Rep #: [id number] : 1950 F 66 From: Ivone Guevara MD PCP: Veronica Oquendo DO Status: [facility] ER Study: Chest PA and Lateral Date of Exam: 11/16/17 Exam# [id number] Ordering Dr: Lobito Lee MD STUDY: X-RAY [...] Fax CC: Veronica Oquendo DO; Lobito Lee Safety Clothing And Equipment Developer: Signed 09-Oct-2017 Chest PA and Lateral Result: Comments: See Note; NOTES: [facility] Imaging Services [address] [place] [address] Chest PA and Lateral MR#: [id number] Acct: [id number] Name: SUGEY LING Rep #: [id number] : 1950 F 66 From: Anam Larios MD PCP: Veronica Oquendo DO Status: [facility] CLI Study: Chest PA and Lateral Date of Exam: 10/09/17 Exam# [id number] Ordering Dr: Will Oliveira MD STUDY: X-RAY [...] Anam Larios MD at 15:14 EST Tel [phone], Service support , CC: Veronica Oquendo DO; Will Oliveira MD Safety Clothing And Equipment Developer: Signed 15-Jul-2017 PT D/C Summary (1) Result: Comments: See Note; NOTES: [facility] [address] [place] [address]. [address] [place] [phone] Fax REHABILITATION SERVICES [facility] SUMMARY MR#: [id number] Acct: [id number] Name: SUGEY LING Rep #: [id number] : 1950 66 From: Nghia Willis PT, Cert. MDT, OCS Referring Dr.: Chetan Medina MD Status: REG RCR [facility] [employer] HP - PT D/C Summary [...] feel free to yamilka l me at [phone]. Thank you for the referral of this patient. Sincerely, Nghia Willis, PT, <Electronically signed by Nghia Willis PT, Cert. MDT, OCS> 07/15/17816 CC: Chetan Medina MD; Veronica Oquendo DO WENCESLAO Signed 11-Jul-2017 Emergency Department Summary Result: Comments: See Note; NOTES: [facility] Medical Records Department [address] [place] [address] Emergency Department Summary 06/21/17 0738 MR#: [id number] Acct: [id number] Name: SUGEY LING Rep #: [id number] : 1950 66 From: Rufino Vela MD [...] ED Arthritis Gout Prescriptions: Hydrocodone Bitart/Apap 5-325 [Lafayette 5/325] 1 - 2 tablet PO Q4H PRN PRN #7 tablet PRN Reason: Pain Referrals: Veronica Oquendo, DO [Primary Care Provider] - What to do if you have Problems For any increased pain, shortness of breath, bleeding, na usea or vomiting, chest pain, or any unexpected problems, contact your Primary Care Provider. Call [facility] ([phone]) or report to the closest Emergency Room. Call 911 if necessary. 07/11 0903 <Electronically signed by Rufino Vela MD> Date Rufino Vela MD Cosigner Signature (If Indicated): Date ___ CC: Veronica Oquendo DO 21-Jun-2017 Discharge Instruction Result: Comments: See Note; NOTES: [facility] Medical Records Department [address] [place] [address] Discharge Instruction 06/21/17739 MR#: [id number] Acct: [id number] Name: Sissy LING VTLou A Rep #: [id number] : 1950 66 From: Rufino Vela MD PCP: Veronica Oquendo DO Status: REG ER ED Disposition - Plan for ED Patient: Chief Complaint: Lower Extremity Injury Instruction s: ED Arthritis Gout Prescriptions: Hydrocodone Bitart/Apap 5-325 [L[place] 5/325] 1 - 2 tablet PO Q4H PRN PRN #7 tablet PRN Reason: Pain Referrals: Veronica Oquendo DO [Primary Care Provider] - What to do if you have Problems For any increased pain, shortness of breath, bleeding, nausea or vomiting, chest pain, or any unexpected problems, contact your Primary Care Provider. Call Doctors Registry ([phone]) or report to the closest Emergency Room. Call 911 if necessary. 06/21/1742 <Electronically signed by Rufino Vela MD> Date Rufino Vela MD Cosigner Signature (If Indicated): Date CC: Veronica Oquendo DO 19-Jun-2017 Re-Evaluation - PT (1) Result: Comments: See Note; NOTES: [facility] [address] [place] [address] Fax REEVALUATION / MEDICARE RECERTLei Aldrich 4d PHYSICAL THERAPY MR#: [id number] Acct: [id number] Name: SUGEY LING Rep #: [id number] : 1950 66 From: Nghia Willis PT, [...] do not hesitate to contact me at [phone] by phone or if you have questions or concerns regarding this new plan of care! Sincerely, Nghia Willis PT, <Electronically signed by Nghia Willis PT, Cert. T, [facility]> 06/19/17 1533 CC: Chetan Medina MD; Veronica flowers DO WENCESLAO Signed For Medicare only, by signing this I certify the plan of care. Physicians Signature Date 09-Jun-2017 L/S Spine Comp/w Bending Views Result: Comments: See Note; NOTES: [facility] Imaging Services [address] [place] [address] Verdana 4d L/S Spine Comp/w Bending Views MR#: [id number] Acct: [id number] Name: DAVE LING Rep #: [id number] : 1950 F 66 From: Ronnie [place] MD PCP: Veronica Oquendo DO Status: REG CLI Study: L/S Spine Comp/w Bending Views Date of Exam: 06/09/17 Exam# [id number] Ordering Dr: Alicai Chirinos MD STUDY: X-RAY - LUMBAR SPINE [...] CC: Tia Chirinos M.D.; Veronica Oquendo DO Safety Clothing And Equipment Developer: Signed 26-May-2017 Re-Evaluation - PT (1) Result: Comments: See Note; NOTES: [facility] [address] [place] [address]. [address] [place] [address] Fax [facility] PH[facility]ICAL THERAPY MR#: [id number] Acct: [id number] Name: HORTENSIASUGEY Devin Rep #: [id number] : 1950 66 From: Nghia Willis PT, [...] do not hesitate to contact me at [phone] by phone or if you have questions [...] Study (HP) Result: Comments: See Note; NOTES: [facility] Imaging Services [address] [address] Verdatony 4d Dexa Bone Density Study (HP) MR#: [id number] Acct: [id number] Name: SUGEY LING Rep #: [id number] : 1950 F 66 From: Anam Larios MD PCP: Azra DO,Veronica Status: REG CLI Study: Dexa Bone Density Study (HP) Date of Exam: 05/12/17 Exam# [id number] Ordering Dr: Veronica Bridges DO STUDY: DUAL [...] Anam Larios MD at 12:45 EDT Tel [phone], Service support , CC: Veronica Oquendo DO Safety Clothing And Equipment Developer: Signed 12-May-2017 SCREENING MAMM (CAD), BILAT Result: Comments: See Note; NOTES: [facility] Imaging Services [address] [place] [address] Verdana 4d SCREENING MAMM (CAD), BILAT MR#: [id number] Acct: [id number] Name: SUGEY LING Rep #: [id number] : 1950 F 66 From: Royce Phipps MD PCP: Veronica Oquendo DO Status: REG CLI Study: SCREENING MAMM (CAD), BILAT Date of Exam: 05/12/17 Exam# [id number] Ordering Dr: Bren Oquendo DO MAMMOGRAPHY - [...] delay biopsy of a clinically suspicious abnormality. [id number] Electronically Signed: Royce Phipps MD at 13:24 EDT Tel , Service support [phone], CC: Veronica Oquendo DO Safety Clothing And Equipment Developer: Signed 30-Apr-2017 Inital Evaluation (1) - PT Result: Comments: See Note; NOTES: [facility] [address] [place], [place] [address] Fax REHABILITATION SERVICES INITIAL EVALUATION MR#: [id number] Acct: [id number] Name: SUGEY LING Rep #: [id number] [...] bowel/bladder problems. Physical therapy went well in [place], she was able to walk again. Social: [...] to be FAXED BACK to us at [phone] for Medicare purposes. Please let me know if there are questions or concerns rega rding this plan of care. Physician Signature: Date: <Electronically signed by Nghia Willis PT, Cert. T, OCS> 04/30/17 3700 CC: Chetan Medina MD; Veronica Oquendo DO KERRIA Signed For Medicare only, by signing this I certify the plan of care. Physicians Signature Date 24-Apr-2017 Spine Lumbar (Routine) Result: Comments: See Note; NOTES: [facility] Imaging Services [address] [place] [address] [facility] 4d Spine Lumbar (Routine) MR#: [id number] Acct: [id number] Name: SUGEY LING Rep #: [id number] : 1950 F 66 From: Ronnie [place] MD PCP: Veronica Oquendo DO Status: REG CLI Study: Spine Lumbar (Routine) Date of Exam: 04/24/17 Exam# [id number] Ordering Dr: Chetan Medina MD [facility]: MRI LUMBAR SPINE WITHOUT CONTRAST REASON FOR [...] CC: Chetan Medina MD; Veronica Oquendo DO Safety Clothing And Equipment Developer: Signed 15-Apr-2017 Hips B/L min 2 views w/ Pelvis Result: Comments: See Note; NOTES: [facility] Imaging Services [address] [place] [address] Verd[place] 4d Hips B/L min 2 views w/ Pelvis MR#: [id number] Acct: [id number] Name: DAVE LING Rep #: [id number] : 1950 F 66 From: Jeremiah Ramos MD PCP: Veroinca Oquendo DO Status: REG CLI Study: Hips B/L min 2 views w/ Pelvis Date of Exam: 04/15/17 Exam# [id number] Ordering Dr: Chetan Hubbard MD STUDY: X-RAY [...] CC: Chetan Medina MD; Veronica Oquendo DO Safety Clothing And Equipment Developer: Signed 16-Jul-2016 Spirometry (29590) Result: 16-Jul-2016 ELECTROCARDIOGRAM, COMPLETE (ECG) (73533) Comments: no new chg cmpared to last ekg Result: [MEASUREMENTS ANALYSIS] Date of Test: 07/16/2016 11:05:02; Heart Rate: 69; TN Interval: 144; QRS: 104; QT Interval: 394; Corrected QT Interval (QTc): 409; P Wave [place]: 56; QRS [place]: 55; T [place] : 90; Blood Pressure: 122/78 [ECG DIAGNOSTIC STATEMENTS] Date of Test: 07/16/2016 11:05:02; Summary: Sinus Rhythm Low voltage in limb leads. - Negative T- waves -Possible Anterior ischemia. ABNORMAL 04-Jul-2016 Knee 4 or More Views Result: Comments: See Note; NOTES: [facility] Imaging Services [address] [place] [address] Ver[place] 4d Knee 4 or More Views MR#: [id number] Acct: [id number] Name: SUGEY LING Rep # : [id number] : 1950 F 65 From: Ivone Guevara MD PCP: Veronica Oquendo DO Status: REG CLI Study: Knee 4 or More Views Date of Exam: 07/04/16 Exam# [id number] Ordering Dr: Kassandra Fortune STUDY: X-RAY - [...] at 16:23 EDT Tel , Service support [phone], CC: Kassandra Fortune; Veronica Oquendo DO Safety Clothing And Equipment Developer: Signed 03-Jun-2016 Emergency Department Summary Result: Comments: See Note; NOTES: [facility] Medical Records Department [address] [place] [address] Emergency Department Summary MR#: [id number] Acct: [id number] Name: SUGEY LING Rep #: [id number] : 1950 65 From: Ronaldo Verduzco MD [...] C: Veronica Reeder MD T: NTS JOB: [id number] 06/03/16 1307 <Electronically signed by Ronaldo Verduzco MD> Date Ronaldo Verduzco MD Cosigner Signature (If Indicated): Date CC: Veronica Oquendo DO; Will Oliveira MD Date Dictated: 06/03/16 1232 Date Transcribed: 06/03/16 123 Safety Clothing And Equipment Developer: Signed 03-Jun-2016 Discharge Instruction Result: Comments: See Note; NOTES: [facility] Medical Records Department [address] [place] [address] Discharge Instruction 06/03/16 1230 MR#: [id number] Acct: [id number] Name: SUGEY LING Rep #: [id number] : 1950 65 From: Ronaldo Verduzco MD PCP: Veronica Oquendo DO Status: REG ER ED Disposition - Plan for ED Patient: Disposition: Home or Assisted Living [facility] Complaint: Fall Instructions: ED Fracture, [...] problems, contact your doctor. Call Doctors Registry ([phone]) or report to the closest Emergency Room. Call 911 if necessary. 06/03/16 1234 <El ectronically signed by Ronaldo Verduzco MD> Date Ronaldo Verduzco MD Cosigner Signature (If Indicated): Date CC: Veronica Oquendo DO 03-Jun-2016 Shoulder min 2 Views Result: Comments: See Note; NOTES: [facility] Imaging Services [address] [address] Ver[place] 4d Shoulder min 2 Views MR#: [id number] Acct: [id number] Name: SUGEY LING Rep #: [id number] : 1950 F 65 From: Anam Larios MD PCP: Veronica Oquendo DO Status: REG ER Study: Shoulder min 2 Views Date of Exam: 06/03/16 Exam# [id number] Ordering Dr: Ronaldo Verduzco MD STUDY: X-RAY [...] Anam Larios MD at 12:42 EDT Tel [phone], Service support [phone], RAD/Shoulder min 2 Views IMPRESSION: I suspect a nondisplaced impacted fracture of the surgical neck of the humerus. Electronically Signed: Anam rinaldi MD at 12:42 EDT Tel [phone], Service support [phone], CC: Veronica Oquendo DO; Ronaldo Verduzco MD Safety Clothing And Equipment Developer: Signed 13-May-2016 L/S Spine Min 4 Views Result: Comments: See Note; NOTES: [facility] Imaging Services [address] [place] [address] Ver[place] 4d L/S Spine Min 4 Views MR#: [id number] Acct: [id number] Name: SUGEY LING Rep #: [id number] : 1950 F 65 From: Anam Larios MD PCP: Veronica Oquendo DO Status: REG CLI Study: L/S Spine Min 4 Views Date of Exam: 05/13/16 Exam# [id number] Ordering Dr: Chetan Luo MD STUDY: X-RAY [...] Anam Larios MD at 8:31 EDT Tel [phone], Service support [phone], RAD/L/S Spine Min 4 Views IMPRESSION: Status post laminectomy and fusion at the L4-L5 and L5-S1 levels with prosthetic disc insertion. Grade 2 anterior listhesis of L5 on S1. Electron ically Signed: Anam Larios MD at 8:31 EDT Tel [phone], Service support [phone], CC: Chetan Medina MD; Veronica Oquendo DO Safety Clothing And Equipment Developer: Signed 13-May-2016 Chest WITH Contrast Result: Comments: See Note; NOTES: [facility] Imaging Services [address] [place] [address] Ver[place] 4d Chest WITH Contrast MR#: [id number] Acct: [id number] Name: KECIASissy [facility] A Rep #: [id number] : 1950 F 65 From: Anam Larios MD PCP: Veronica Oquendo DO Status: REG CLI Study: Chest WITH Contrast Date of Exam: 05/13/16 Exam# [id number] Ordering Dr: Veronica Oquendo DO STUDY: CT [...] Anam Larios MD at 8:42 EDT Tel [phone], Service support , CC: Veronica Oquendo DO Safety Clothing And Equipment Developer: Signed 09-May-2016 Bilat Scrn Digital AND CAD Result: Comments: See Note; NOTES: [facility] Imaging Services [address] [place] [address] [place] 4d Bilat Scrn Digital AND CAD MR#: [id number] Acct: [id number] Name: HORTENSIASUGYE Devin Rep #: [id number] : 1950 F 65 From: Anam Larios MD PCP: Veronica Oquendo DO Status: REG CLI Study: Bilat Scrn Digital AND CAD Date of Exam: 05/09/16 Exam# [id number] Order ing Dr: Veronica Oquendo DO MAMMOGRAPHY [...] delay biopsy of a clinically suspicious abnormality. [id number] Electronically Signed: Anam Larios MD at 10:46 EDT Tel [phone], rvice support [phone], CC: Veronica Oquendo DO Safety Clothing And Equipment Developer: Signed 09-May-2016 Chest PA and Lateral Result: Comments: See Note; NOTES: [facility] Imaging Services [address] [place] [address] Verdana 4d Chest PA and Lateral MR#: [id number] Acct: [id number] Name: SUGEY LING Rep #: [id number] : 1950 F 65 From: Anam Larios MD PCP: Veronica Oquendo DO Status: [facility] CLI Study: Chest PA and Lateral Date of Exam: 05/09/16 Exam# [id number] Ordering Dr: Veronica Davidson DO STUDY: X-RAY [...] Anam Larios MD at 9:41 EDT Tel [phone], Service support [phone], RAD/Chest PA and Lateral IMPRESSION: Focal area of increased markings in the right midlung. Followup is recommended. Electronically Signed: Anam Larios MD at 9:41 EDT Tel [phone], Service support [phone], CC: Veronica Oquendo DO Safety Clothing And Equipment Developer: Signed 15-Apr-2016 Knee 4 or More Views Result: Comments: See Note; NOTES: [facility] Imaging Services [address] [place] [address] Verdana 4d Knee 4 or More Views MR#: [id number] Acct: [id number] Name: SUGEY LING Rep #: [id number] : 1950 F 65 From: Royce Phipps MD PCP: Veronica Oquendo DO Status: REG CLI Study: Knee 4 or More Views Date of Exam: 04/15/16 Exam# [id number] Ordering Dr: Tad Oquendo DO STUDY: X-RAY [...] 10:30 EDT Tel , Servic e support [phone], RAD/Knee 4 or More Views IMPRESSION: Degenerative arthrosis. Electronically Signed: Royce Phipps MD at 10:30 EDT Tel , Service support [phone], CC: Veronica Oquendo DO Safety Clothing And Equipment Developer: Signed 15-Apr-2016 Knee 4 or More Views Result: Comments: See Note; NOTES: [facility] Imaging Services [address] [place] [address] Verdana 4d Knee 4 or More Views MR#: [id number] Acct: [id number] Name: SUGEY LING Rep #: [id number] : 1950 F 65 From: Royce Phipps MD PCP: Veronica Oquendo DO Status: REG CLI Study: Knee 4 or More Views Date of Exam: 04/15/16 Exam# [id number] Ordering Dr: Tad Oquendo DO STUDY: X-RAY [...] 10:39 EDT Tel , Ser vice support [phone], RAD/Knee 4 or More Views IMPRESSION: Degenerative arthrosis. Electronically Signed: Royce Phipps MD at 10:39 EDT Te l , Service support [phone], CC: Veronica Oquendo DO Safety Clothing And Equipment Developer: Signed 30-Jul-2015 Spirometry (70595) Result: 19-Jul-2015 Spirometry (94570) Comments: mild obstruction - asx Result: 08-May-2015 Bilat Scrn Digital AND CAD Result: Comments: See Note; NOTES: [facility] Imaging Services [address] [place] [address] Breast Imaging Report MR#: [id number] Acct: [id number] Name: SUGEY LING Rep #: [id number] : 1950 F 64 From: Anam Larios MD PCP: Veronica Oquendo DO Status: REG CLI Study: Bilat Scrn Digital AND CAD Date of Exam: 05/08/15 Exam# [id number] Ordering Dr: Pippa Oquendo DO MAMMOGRAPHY - [...] Jj Larios MD at 10:50 EDT Tel [phone], Service support [phone], CC: Veronica Oquendo DO Safety Clothing And Equipment Developer: Signed 08-May-2015 Dexa Bone Density Study (HP) Result: Comments: See Note; NOTES: [facility] Imaging Services [address] [place] [address]35 Bone Density Report MR#: [id number] Acct: [id number] Name: SUGEY LING Rep #: [id number] : 1950 F 64 From: Anam Larios MD PCP: Veronica Oquendo DO Status: REG CLI Study: Dexa Bone Density Study () Date of Exam: 05/08/15 Exam# [id number] Ordering Dr: Pippa Oquendo DO STUDY: DUAL [...] Anam Larios MD at 15:32 EDT Tel [phone], Service support [phone], CC: Veronica Oquendo DO Safety Clothing And Equipment Developer: Signed 27-Apr-2015 Chest PA and Lateral Result: Comments: See Note; NOTES: [facility] Imaging Services [address] [place] [address] Radiology Report MR#: [id number] Acct: [id number] Name: SUGEY LING Rep #: [id number] : 1950 F 64 From: Lilian Dominguez MD PCP: Veronica Oquendo DO Status: REG CLI Study: Chest PA and Lateral Date of Exam: 04/27/15 Exam# [id number] Ordering Dr: Veronica Oquendo DO STUDY : [...] MD at 22:33 EDT , Service support [phone], RAD/Chest PA and Lateral IMPRESSION: No acute cardiopulmonary findings or changes. Mild hyper expansion and stable mild chronic lung changes. Stigmata of prior granulomatous disease. Atherosclerosis. Demineralized osseous structures and dextroscoliosis. Electronically Signed: Lilian Dominguez MD at 22:33 EDT , Service support [phone], CC: Veronica Oquendo DO Safety Clothing And Equipment Developer: Signed 31-May-2014 Foot min 3 Views Result: Comments: See Note; NOTES: [facility] Imaging Services [address] [place] [address] Radiology Report MR#: [id number] Acct: [id number] Name: SUGEY LING Rep #: [id number] : 1950 F 63 From: Celso Guerrero DO PCP: Veronica Oquendo DO Status: REG CLI Study: Foot min 3 Views Date of Exam: 05/31/14 Exam# [id number] Ordering Dr: Jade Benson MD STUDY: X-RAY [...] DO at 9:34 EDT , Service support [phone], CC: Veronica Oquendo DO; Jade Benson MD Safety Clothing And Equipment Developer: Signed 31-May-2014 Foot min 3 Views Result: Comments: See Note; NOTES: [facility] Imaging Services [address] [place] [address] Radiology Report MR#: [id number] Acct: [id number] Name: SUGEY LING Rep #: [id number] : 1950 F 63 From: Celso Guerrero DO PCP: Veronica Oquendo DO Status: REG CLI Study: Foot min 3 Views Date of Exam: 05/31/14 Exam# [id number] Ordering Dr: Jade Benson MD STUDY: X-RAY [...] at 9:32 EDT Tel , Service support [phone], CC: Veronica Oquendo DO; Jade Benson MD Safety Clothing And Equipment Developer: Signed 31-May-2014 Hand Min 3 Views Result: Comments: See Note; NOTES: [facility] Imaging Services [address] [place] [address] Radiology Report MR#: [id number] Acct: [id number] Name: SUGEY LING Rep #: [id number] : 1950 F 63 From: Celso Guerrero DO PCP: Veronica Oquendo DO Status: REG CLI Study: Hand Min 3 Views Date of Exam: 05/31/14 Exam# [id number] Ordering Dr: Jade Benson MD STUDY: X-RAY [...] DO at 9:42 EDT , Service support [phone], CC: Veronica Oquendo DO; Jade Benson MD Safety Clothing And Equipment Developer: Signed 31-May-2014 Hand Min 3 Views Result: Comments: See Note; NOTES: [facility] Imaging Services [address] [place] [address] Radiology Report MR#: [id number] Acct: [id number] Name: SUGEY LING Rep #: [id number] : 1950 F 63 From: Celso Guerrero DO PCP: Veronica Oquendo DO Status: REG CLI Study: Hand Min 3 Views Date of Exam: 05/31/14 Exam# [id number] Ordering Dr: Jade Benson MD STUDY: X-RAY [...] at 9:43 EDT , Servic e support [phone], RAD/Hand Min 3 Views IMPRESSION: Osteopenia with degenerative changes. No acute fracture demonstrated. Electronically Signed: Ashok keith DO at 9:43 EDT , Service support [phone], CC: Veronica Oquendo DO; Jade Benson MD Safety Clothing And Equipment Developer: Signed 19-May-2014 Chest PA and Lateral Result: Comments: See Note; NOTES: [facility] Imaging Services [address] [place], [place] [address] Radiology Report MR#: [id number] Acct: [id number] Name: SUGEY LING Rep #: [id number] : 1950 F 63 From: Marciano Fountain MD PCP: Status: REG CLI Study: Chest PA and Lateral Date of Exam: 05/19/14 Exam# [id number] Ordering Dr: Veronica Oquendo DO STUDY: X-RAY [...] MD at 5:44 EDT , Service support [phone], CC: Veronica Oquendo DO Safety Clothing And Equipment Developer: Signed 18-Apr-2014 EKG (91032) Comments: nsr no acute chg Result: [MEASUREMENTS ANALYSIS] Date of Test: 04/18/2014 09:33:28; Heart Rate: 72; TN Interval: 148; QRS: 108; QT Interval: 392; Corrected QT Interval (QTc): 413; P Wave [place]man: 63; QRS Wave [place]: 59; T Wave [place] : 66; Blood Pressure: 138/62 [ECG DIAGNOSTIC STATEMENTS] Date of Test: 04/18/2014 09:33:28; Summary: Sinus Rhythm Low voltage in limb leads. - Negative precordial T-waves. ABNORMAL 16-Sep-2013 Bilat Scrn Digital & CAD Result: Comments: See Note; NOTES: [facility] Imaging Services [address] [place] [address] Breast Imaging Report MR#: [id number] Acct: [id number] Name: SUGEY LING Rep #: [id number] : 1950 F 62 From: Anam Larios MD PCP: Veronica Oquendo DO Status: REG CLI Exam# [id number] Ordering Dr: Veronica Oquendo DO MAMMOGRAPHY - [...] September 16, 2013 at 9:43:10 AM EDT [phone] Electronically Signed GP/GP If you are the referring physician and would like to consult with the radiologist who provided this interpretation, please contact Anam Webb i, M.D. at [phone]. If this radiologist is unavailable, you will be directed to another radiologist to assist. If you are a patient with a question regarding this report, please contact your re ferring physician directly. Professional Interpretation Provided By: [employer] ([email or web address]), Phone , These documents contain legally protected [...] of these documents. CC: Veronica Oquendo DO Safety Clothing And Equipment Developer: Signed Family History Unknown Family Member Name [...] kg/m2 Body Surface Area Calculated 1.85 m2 70-Ahz-563472:51 Temperature 98.4 f Comments: Method: Tympanic Respiration [...] Surface Area Calculated 1.86 m2 :39 Comments: [facility] and had a glaucoma test donehearing [...] kg/m2 Body Surface Area Calculated 1.89 m2 08-Zkc-807413:17 Comments: [facility] and had a glaucoma test donehearing [...] kg/m2 Body Surface Area Calculated 1.9 m2 28-Dgl-704199:20 Comments: 138/70 2nd bp Pulse 96 /min [...] kg/m2 Body Surface Area Calculated 1.84 m2 99-Spi-203329:35 Pulse 60 /min Comments: Pattern: Regular Respiration [...] 1.83 m2 Results Date Description Value Details :27 HgA1C , Office (83122) HgA1C , Office 7.4 % (Abnormal) Range: 4.6 - 7.1 :27 Blood Glucose , Office (58059) Blood Glucose , Office 143 (Normal) 4-Qfm-172669:21 CBC-Complete Blood Cnt No Diff Comments: [facility] [address] [place], [place], [address] MPV 9.8 fL (Normal) Range: 6.2-12.0 PLT [...] 4.2-5.4 WBC 7.0 K/mm3 (Normal) Range: 4.4-11.0 3-Aza-283177:21 Magnesium Comments: [facility] [address] [place], [address] MG 1.9 mg/dL (Normal) Range: 1.6-2.6 4-Bjs-034901:21 Protein+Creatinine Ratio,Urine Comments: [facility] [address] [place], [phone] PROT:CRE RATIO 116 {mg/g_CRE} (Normal) Range: 0-200 PROTEIN,UR.RAN. 8.6 mg/dL (Normal) UR CREAT 74.00 mg/dL (Normal) 9-Qhw-377271:21 PTHIN 36.7 pg/mL (Normal) Comments: [facility] [address] [place], [id number] Range: 18.4-80.1 8-Gpd-357755:21 Renal Profile Comments: [facility] [address] [place], [address] CO2 27.0 mmol/L (Normal) Range: 21.0-32.0 CL [...] A.D.A. criteria.Please note revised GLUCOSE reference range bthdezodx76/02/2018. 1-Xng-994585:21 Uric Acid Comments: [facility] [address] [place], [phone] URIC 5.6 mg/dL (Normal) Range: 2.6-6.0 Comments: The drugs N-Acetylcysteine and Metamizole may falselydepress this assay. :21 Vitamin D,25 Hydroxy Comments: [facility] [address] [place], [address] Vitamin D 25-OH 32.8 ng/mL (Normal) Range: 29.95-100.01 Comments: Vitamin D 25(OH) Status Range Deficiency <20 ng/mL (50nmol/L) Insuffciency 20 - 30 ng/mL (50 - 75 nmol/L) Sufficiency 30 - 100 ng/mL (75 - 250 nmol/L) Toxicity >100 ng/mL (>250 nmol/L) :59 URIC ACID BLOOD (29922) Comments: PATIENT NOT FASTINGPERFORMED BY: [facility] Qnthkg5655 [facility] [id number] Uric Acid 8.7 mg/dL (Abnormal) Range: 2.5-7.1 Comments: Therapeutic target for gout patients: <6.0 :34 HgA1C , Office (70177) HgA1C , Office 6.5 % (Normal) Range: 4.6 - 7.1 :33 Blood Glucose , Office (53878) Blood Glucose , Office 103 (Normal) 58-Gwz-232456:32 Basic Metabolic Profile (BMP) Comments: [facility] [address] [place], [id number] GAP 3 (Abnormal) Range: 5-15 CO2 31.0 [...] A.D.A. criteria.Please note revised GLUCOSE reference range opnyslxay56/02/2018. :36 HgA1C , Office (51614) HgA1C , Office 6.6 % (Normal) Range: 4.6 - 7.1 :36 Blood Glucose , Office (59201) Blood Glucose , Office 186 (Normal) Comments: not fasting 1-Slt-880511:28 Miscellaneous Lab Procedure Comments: Comments: TRAMADOL URINE [id number](s) Ordered: URINE TOXICOLOGY [id number] RUN LOWEST [facility] [address] [place], [place], [address] [facility] Comments: [id number] 6+OXYCODONE-BUND (ng/mL)DRUG RESULT SCREEN CUTOFF____ Amphetamines,Urine Negat LAB (Normal) emy ng/mL 1000Amphetamine test includes Amphetamine and Methamphetamine.Barbiturates Negative ng/mL 200Benzodiazepines Negative ng/mL 200Cannabinoid TEST Negative ng/mL 20Cocaine (Metab) Negative ng/mL 300Opiates Negative ng/mL 300 Opiates test includes Codeine, Morphine, Hydromorphone, [place] codone.Oxycodone/Oxymorphone,Urine Negative ng/mL 300 Test includes Oxydodone and Oxymorphone. TESTING PERFORMED AT [facility]. ORIGINAL REPORT ON FILE IN LAB CONTAINS ADDITIONAL TEST SITE INFORMATION. 8-Eeq-367820:28 Miscellaneous Lab Procedure 2 Comments: Comments: TRAMADOL URINE [id number] Test(s) Ordered by Physician: URINE TOXICOLOGY [id number] RUN [facility] [address] [place], [address] [facility] Comments: TEST RESULT LIMITSTramadol Positive Cutoff = 200 Tramadol GC/MS COnf 6050 ng/mL Cutoff = 100 LAB (Normal) TESTING PERFORMED AT [facility]. ORIGINAL REPORT ON FILE IN LAB CONTAINS ADDITIONAL TEST SITE INFORMATION. TEST 2 0-Dgt-805573:28 Urine Drug Screen (VISTA) Comments: Comments: TRAMADOL URINE [id number] of Drugs Taken or Suspected? [facility] [address] [place], [address] THC NEGATIVE (Normal) PCP NEGATIVE (Normal) OPIATES [...] TESTING MUST BE ORDERED SEPARATELY. USE TESTMNEMONIC: [facility] 04-Dmg-697401:14 CBC-Complete Blood Cnt No Diff Comments: [facility] [address] [place], [place], [phone]) MPV 9.5 fL (Normal) Range: 6.2-12.0 PLT [...] 4.2-5.4 WBC 9.7 K/mm3 (Normal) Range: 4.4-11.0 72-Acu-413802:14 Magnesium Comments: [facility] [address] [place], [place], [phone]) MG 1.7 mg/dL (Normal) Range: 1.6-2.6 27-Ezj-049564:14 Microalb:Creat Ratio,Random UR Comments: [facility] [address] [place], [place], [phone] MALB:CREAT 5.5 {mg/g_CRE} (Normal) MICROALBUMIN,UR 6.1 mg/L (Normal) UR CREAT 111.00 mg/dL (Normal) 27-Dos-925473:1 PTHIN 25.7 pg/mL (Normal) Comments: [facility] [address] [place], [address] 4 Range: 18.4-80.1 Comments: Please Note: PTH INTACT METHOD AND REFERENCE RANGE CHANGEEffective 11/18/2017. 11-Ugk-953768:14 Renal Profile Comments: [facility] [address] [place], [address] CO2 27.0 mmol/L (Normal) Range: 21.0-32.0 CL [...] A.D.A. criteria.Please note revised GLUCOSE reference range qiofotdrw31/02/2018. 83-Ndu-316713:14 Uric Acid Comments: [facility] [address] [place], [address] URIC 8.4 mg/dL (Abnormal) Range: 2.6-6.0 Comments: The drugs N-Acetylcysteine and Metamizole may falselydepress this assay. 25-Wry-626208:14 Vitamin D,25 Hydroxy Comments: [facility] [address] [place], [address] Vitamin D 25-OH 36.6 ng/mL (Normal) Range: 29.95-100.01 Comments: Vitamin D 25(OH) Status Range Deficiency <20 ng/mL (50nmol/L) Insuffciency 20 - 30 ng/mL (50 - 75 nmol/L) Sufficiency 30 - 100 ng/mL (75 - 250 nmol/L) Toxicity >100 ng/mL (>250 nmol/L) 73-Dcx-35127:27 HgA1C , Office (13255) HgA1C , Office 6.7 % (Normal) Range: 4.6 - 7.1 9-Keo-507906:13 Bedside Glucose Comments: [facility] [address] [place] [address] BEDSIDE GLU 132 mg/dL (Abnormal) Range: 70-110 Comments: MANAGEMENT OF PATIENT CARE PER NURSING PROTOCOL 08-Jan-20180:00 Culture, Bronch Aveolar Lavage Comments: [facility] [address] [place], [address] CUBRL See Note (Normal) Comments: List Antibiotics Last 48 Hours? .List Antibiotics to be Started? .Gram StainGram Stain No White Blood Cells No organisms seen Resp. CultureMixed normal respiratory hermelindo. No Haemophilus, Streptoc occus pneumoniae, beta-hemolytic Streptococcus or Staphylococcus aureus isolated. 25-Sne-497667:06 HgA1C , Office (93491) HgA1C , Office 8.2 % (Abnormal) Range: 4.6 - 7.1 :06 Blood Glucose , Office (93094) Blood Glucose , Office 168 (Normal) 52-Pix-868828:00 Culture, Fungus 8482 Comments: [facility] [address] [place], [address] CUF See Note Comments: PER ORDER, SPUTUM SMEAR/CULTURE FUNGAS Cu,Dbxhdo1862 TESTING PERFORMED AT [facility]. ORIGINAL REPORT ON FILE IN LAB CONTAINS NEO TIONAL TEST (Normal) SITE INFORMATION. CUF Positive Fungus Culture ORGANISM 1: Yana albicansAmount Growth Growth 68-Mkq-021049:00 Culture, Sputum Comments: [facility] [address] [facility] [place], [address] CUSP See Note (Normal) Comments: PER ORDER, SPUTUM SMEAR/CULTURE FUNGAS Gram StainAcceptable Specimen? Yes (<25 Epithelial cells per/lpf) Gram Stain 1+ White Blood Cells 1+ Epithelial cells 1+ Gram positive cocci Resp. CultureMixed normal respiratory hermelindo. No Haemophilus, Streptococcus pneumoniae, beta-hemolytic Streptococcus or Staphylococcus aureus isolated. 08-Fmr-930651:49 BNP,B-Type NATRIURETIC PEPTIDE Comments: [facility] [address] [place], [address] B-TYPE EB PEP 41.7 pg/mL (Normal) Range: 0-100 06-Awp-772833:30 Rapid Flu (21691 x 2) Influenza A Ag neg (Normal) 6-Qkg-913605:14 Bedside Glucose Comments: [facility] [address] [facility] [place] [address] BEDSIDE GLU 151 mg/dL (Abnormal) Range: 70-110 Comments: MANAGEMENT OF PATIENT CARE PER NURSING PROTOCOL 07-Dec-20170:00 Culture, Bronch Aveolar Lavage Comments: [facility] [address] [facility] [place], [address] CUBRL See Note (Normal) Comments: [...] $ <=20 S(NF) indicates non-formulary drug at [facility]. Approval by Infectious Disease Specialist required before non-formulary drugs may be ordered and/or dispensed. 6-Yyr-882547:27 CBC-Complete Blood Cnt No Diff Comments: [facility] [address] [place], [place], [id number] MPV 10.0 fL (Normal) Range: 6.2-12.0 PLT [...] 4.2-5.4 WBC 14.0 K/mm3 (Abnormal) Range: 4.4-11.0 6-Snd-263504:27 Hemoglobin A1c Comments: [facility] [address] [place], [address] HGB A1C 7.9 % (Abnormal) Range: 4.2-6.3 2-Duf-718103:27 Magnesium Comments: [place] [address] [place], [place], [address] MG 1.9 mg/dL (Normal) Range: 1.8-2.4 0-Jgr-283106:27 Microalb:Creat Ratio,Random UR Comments: [facility] [address] [place], [address] MALB:CREAT 12.0 {mg/g_CRE} (Normal) MICROALBUMIN,UR 11.1 mg/L (Normal) UR CREAT 92.40 mg/dL (Normal) 3-Rfg-165468:27 PTHIN 83.3 pg/mL (Abnormal) Comments: [facility] [address] [place], [address] Range: 18.4-80.1 Comments: Please Note: PTH INTACT METHOD AND REFERENCE RANGE CHANGEEffective 11/18/2017. 6-Bmt-019939:27 Renal Profile Comments: [facility] [address] [place], [phone] CO2 24.0 mmol/L (Normal) Range: 21.0-32.0 CL [...] 200 mg/dLsuggests DIABETES MELLITUS per A.D.A. criteria. 0-Vvw-838445:27 Uric Acid Comments: [facility] [address] [place], [address] URIC 9.0 mg/dL (Abnormal) Range: 2.6-6.0 Comments: The drugs N-Acetylcysteine and Metamizole may falselydepress this assay. 6-Hbc-353519:27 Vitamin D,25 Hydroxy Comments: [facility] [address] [place], [address] Vitamin D 25-OH 34.1 ng/mL (Normal) Comments: Vitamin D 25(OH) Status Range Deficiency <20 ng/mL (50nmol/L) Insuffciency 20 - 30 ng/mL (50 - 75 nmol/L) Sufficiency 30 - 100 ng/mL (75 - 250 nmol/L) Toxicity >100 ng/mL (>250 nmol/L) 96-Szc-56809:22 THROAT CULTURE (30566) Comments: PATIENT NOT FASTINGPERFORMED BY: [employer] [facility] Chnrps3780 [facility] [id number] Information: SRC:TH Result 1 RRF (Normal) Comments: Routine respiratory hermelindo Upper Respiratory Culture Final report (Normal) 06-Xgr-103058:09 Rapid Flu (29716 x 2) Comments: Negative Influenza A Ag negative (Normal) 44-Apx-198062:09 Rapid Strep Test, Office (86675) Comments: Negative Rapid Strep Test, Office Negative (Normal) 49-Nqz-902879:52 Microscopic Examination Comments: PATIENT WAS FASTINGPERFORMED BY: [facility] Mnbkwi6668 [facility] [id number] Bacteria None seen (Normal) Mucus Threads Present (Normal) Epithelial Cells (non renal) 0-10 {/hpf} (Normal) Range: 0 - 10 RBC 0-2 {/hpf} (Normal) Range: 0 - 2 WBC 0-5 {/hpf} (Normal) Range: 0 - 5 91-Eys-138454:08 Magnesium Comments: [facility] [address] [place], [address] MG 1.9 mg/dL (Normal) Range: 1.8-2.4 :08 Microalb:Creat Ratio,Random UR Comments: [facility] [address] [place], [address] MALB:CREAT 8.5 {mg/g_CRE} (Normal) MICROALBUMIN,UR 5.2 mg/L (Normal) UR CREAT 61.10 mg/dL (Normal) 57-Rwi-663212:08 PTH,INTACT Comments: [facility] [address] [place], [address] PTH,Intact 40 pg/mL (Normal) Range: 14-72 :08 Renal Profile Comments: [facility] [address] [place], [address] CO2 23.0 mmol/L (Normal) Range: 21.0-32.0 CL [...] per A.D.A. criteria. :08 Uric Acid Comments: [facility] [address] [place], [phone] URIC 8.0 mg/dL (Abnormal) Range: 2.6-6.0 Comments: The drugs N-Acetylcysteine and Metamizole may falselydepress this assay. 13-Dgy-461577:08 Vitamin D,25 Hydroxy Comments: [facility] [address] [place], [address] Vitamin D 25-OH 27.6 ng/mL (Normal) Comments: Vitamin D 25(OH) Status Range Deficiency <20 ng/mL (50nmol/L) Insuffciency 20 - 30 ng/mL (50 - 75 nmol/L) Sufficiency 30 - 100 ng/mL (75 - 250 nmol/L) Toxicity >100 ng/mL (>250 nmol/L) :52 URINALYSIS, W/ MICRO (99765) Comments: PATIENT WAS FASTINGPERFORMED BY: [email or web address] [place] [id number] Microscopic Examination See below: (Normal) Comments: Microscopic was indicated and was performed. Nitrite, Urine Negative (Normal) Urobilinogen,Semi-Qn 0.2 mg/dL (Normal) Range: 0.2-1.0 Bilirubin Negative (Normal) Occult Blood Negative (Normal) Ketones Negative (Normal) Glucose 1+ (Abnormal) Protein Negative (Normal) WBC Esterase 1+ (Abnormal) Appearance Clear (Normal) Urine-Color Yellow (Normal) pH 6.5 (Normal) Range: 5.0-7.5 Specific [place] 1.023 (Normal) Range: 1.005-1.030 :52 MICROALBUMIN: CREATININE RATIO Comments: PATIENT WAS FASTINGPERFORMED BY: [email or web address] [place] [id number] (99929) AND (92833) Microalb/Creat Ratio 7.6 {mg/g_creat} (Normal) Range: 0.0-30.0 Microalbumin, Urine 6.8 ug/mL (Normal) Creatinine, Urine 89.4 mg/dL (Normal) 26-Mbb-453632:52 METABOLIC PANEL, COMPREHENSIVE Comments: PATIENT WAS FASTINGPERFORMED BY: [facility] ElmerMdurmp8942 [facility] [id number] (83924) ALT (SGPT) 22 [iU]/L (Normal) Range: 0-32 [...] Glucose, Serum 99 mg/dL (Normal) Range: 65-99 91-Mcc-319655:52 CBC W/AUTO DIFF WBC (30611) Comments: PATIENT WAS FASTINGPERFORMED BY: [facility] [facility] ElmerUembvy1094 [facility] [id number] Immature Grans (Abs) 0.0 {x10E3/uL} (Normal) Range: [...] 3.77-5.28 WBC 13.0 {x10E3/uL} (Abnormal) Range: 3.4-10.8 08-Llg-175556:52 LIPID PANEL (76745) Comments: PATIENT WAS FASTINGPERFORMED BY: PRATIMA [facility] ElmerKenzwf8697 [facility] [id number] LDL/HDL Ratio 1.8 {ratio_units} (Normal) Range: 0.0-3.2 Comments: LDL/HDL Ratio Men Women 1/2 Avg.Risk 1.0 1.5 Av g.Risk 3.6 3.2 2X Avg.Risk 6.2 5.0 3X Avg.Risk 8.0 6.1 LDL Cholesterol Calc 75 mg/dL (Normal) Range: 0-99 VLDL Cholesterol Yamilka 42 mg/dL (Abnormal) Range: 5-40 HDL Cholesterol 41 mg/dL (Normal) Triglycerides 211 mg/dL (Abnormal) Range: 0-149 Cholesterol, Total 158 mg/dL (Normal) Range: 100-199 :52 TSH (67275) Comments: PATIENT WAS FASTINGPERFORMED BY: PRATIMA [facility]IEIAKindred Hospital Kfeoee1055 [facility] [id number] TSH 1.390 {uIU/mL} (Normal) Range: 0.450-4.500 :52 CALCIFEDIOL (48437) Comments: PATIENT WAS FASTINGPERFORMED BY: [facility]Kindred [facility] Kpfowv4812 [facility] [id number] Vitamin D, 25-Hydroxy 38.5 ng/mL (Normal) Range: 30.0-100.0 Comments: Vitamin D deficiency has been defined by the Marks ofMedicine and an Endocrine Society practice guideline as alevel of serum 25-OH vitamin D less than 20 ng/mL (1,2).The Endocrine Society went on to further define vitamin Dinsufficiency as a level between 21 and 29 ng/mL (2).1. IOM (Marks of Medicine). 2010. Dietary reference intakes for calcium and D. [place]: The National Academies Press.2. Stephon MF, Ana ROY, Alka ROMERO, et al. Evaluation, treatment, and prevention of vitamin D deficiency: an Endocrine Society clinical practice guideline. JCEM. 2010; 96(7):1911-30. :32 HgA1C , Office (88102) HgA1C , Office 8.1 % (Abnormal) Range: 4.6 - 7.1 :32 Blood Glucose , Office (18721) Blood Glucose , Office 122 (Normal) :37 Immature Cells Comments: PATIENT WAS FASTINGPERFORMED BY: LabV[facility] Center6370 [facility] [id number] Myelocytes 1 % (Abnormal) Range: 0 - 0 Metamyelocytes 3 % (Abnormal) Range: 0 - 0 :16 PHOSPHORUS (14317) Comments: PATIENT WAS FASTINGPERFORMED BY: LabCo Xyadla7123 [facility] [id number] Phosphorus, Serum 2.8 mg/dL (Normal) Range: 2.5-4.5 :16 MAGNESIUM (79060) Comments: PATIENT WAS FASTINGPERFORMED BY: LabCoJason Ville 4702570 [facility] [id number] Magnesium, Serum 1.8 mg/dL (Normal) Range: 1.6-2.3 :16 METABOLIC PANEL, COMPREHENSIVE Comments: PATIENT WAS FASTINGPERFORMED BY: [place] 3125470 [facility] [id number] (02403) ALT (SGPT) 29 [iU]/L (Normal) Range: 0-32 [...] DIR SMEAR Comments: PATIENT NOT FASTINGPERFORMED BY: [facility]6370 [facility] [id number] (41896) Result 1 NOCP (Normal) Comments: No ova, cysts, or parasites seen. Ova + Parasite Exam Final report (Normal) Comments: These results were obtained using wet preparation(s) and trichromestained smear. This test does not include testing for Cryptosporidiumparvum, Cyclospora, or Microsporidia. :34 OCCULT BLOOD FECES SCREEN Comments: PATIENT NOT FASTINGPERFORMED BY: [employer] Dvtcov8559 [facility] [id number] (49869) Occult Blood, Fecal, IA Negative (Normal) :34 LEUKOCYTE COUNT, FECAL (88160) Comments: PATIENT NOT FASTINGPERFORMED BY: [employer] Vetnfi2555 [facility] [id number] Result 1 NWBC (Normal) Comments: No white blood cells seen. White Blood Cells (WBC), Final report (Normal) Stool :34 C-DIFFICILE, STOOL (77104) Comments: PATIENT NOT FASTINGPERFORMED BY: LaunchLabrp Rxnqtf7952 Wu [facility]i [facility] [id number] C difficile Toxins A+B, EIA Negative (Normal) :34 ALFONZO CULTURE-STOOL (06585) Comments: PATIENT NOT FASTINGPERFORMED BY: [facility] Acgmsc8459 [facility] [id number] Information: SRC:ST SRC:ST E coli Shiga Toxin EIA Negative (Normal) Result 1 NCI (Normal) Comments: No Campylobacter species isolated. Campylobacter Culture Final report (Normal) Result 1 NSS (Normal) Comments: No Salmonella or Shigella recovered. Salmonella/Shigella Screen Final report (Normal) 80-Hwt-934652:56 Metabolic Panel, Comprehensive Comments: PATIENT NOT FASTINGPERFORMED BY: LaunchLabrp Ajrydj3547 Wu Kubi [facility] [id number] (51677) ALT (SGPT) 26 [iU]/L (Normal) Range: 0-32 [...] Glucose, Serum 147 mg/dL (Abnormal) Range: 65-99 73-Rfc-109538:56 CBC, Platelets & Auto Diff Comments: PATIENT NOT FASTINGPERFORMED BY: [facility] Kblapy6053 [facility] [id number] (18725) Immature Grans (Abs) 0.1 {x10E3/uL} (Normal) Range: [...] (Normal) Range: 3.4-10.8 :37 URIC ACID BLOOD (61604) Comments: PATIENT WAS FASTINGPERFORMED BY: [facility]diInspira Medical Center ElmerGqyqqg8988 [facility] [id number] Uric Acid, Serum 9.1 mg/dL (Abnormal) Range: 2.5-7.1 Comments: Therapeutic target for gout patients: <6.0 :10 METABOLIC PANEL, COMPREHENSIVE (51610) :37 CBC W/AUTO DIFF WBC (64722) Comments: PATIENT WAS FASTINGPERFORMED BY: [facility]diInspira Medical Center ElmerUmdtva9543 [facility] [id number] Hematology Comments: Note: (Normal) Comments: Manual differential [...] 3.77-5.28 WBC 9.4 {x10E3/uL} (Normal) Range: 3.4-10.8 57-Icu-034951:58 Magnesium Comments: [facility] [address] [place], [address] MG 2.0 mg/dL (Normal) Range: 1.8-2.4 Comments: Slight Hemolysis, Result may be falsely increased. 74-Uxf-671438:58 Renal Profile Comments: [facility] [address] [place], [address] CO2 27.0 mmol/L (Normal) Range: 21.0-32.0 CL [...] per A.D.A. criteria. :45 URIC ACID BLOOD (29208) Comments: PATIENT NOT FASTINGPERFORMED BY: [employer] InnovationsCarolin[facility] [id number] Uric Acid, Serum 9.6 mg/dL (Abnormal) Range: 2.5-7.1 Comments: Therapeutic target for gout patients: <6.0 :45 RENAL FUNCTION PANEL (64445) Comments: PATIENT NOT FASTINGPERFORMED BY: [employer]70 Wu [facility] [id number] Albumin, Serum 4.5 g/dL (Normal) Range: 3.6-4.8 [...] 214 mg/dL (Abnormal) Range: 65-99 :24 CALCIFIDIOL (94414) VIT D 25 Comments: PATIENT WAS FASTINGPERFORMED BY: [facility]6370 [facility] [id number] Vitamin D, 25-Hydroxy 44.9 ng/mL (Normal) Range: 30.0-100.0 Comments: Vitamin D deficiency has been defined by the Marks ofMedicine and an Endocrine Society practice guideline as alevel of serum 25-OH vitamin D less than 20 ng/mL (1,2).The Endocrine Society went on to further define vitamin Dinsufficiency as a level between 21 and 29 ng/mL (2).1. IOM (Marks of Medicine). 2010. Dietary reference intakes for calcium and D. [place]: The National Academies Press.2. Stephon MF, Ana ROY, Alka ROMERO, et al. Evaluation, treatment, and prevention of vitamin D deficiency: an Endocrine Society clinical practice guideline. JCEM. 2010; 96(7):1911-30. :39 HgA1C , Office (03595) HgA1C , Office 7.6 % (Abnormal) Range: 4.6 - 7.1 :39 Blood Glucose , Office (02863) Blood Glucose , Office 174 (Normal) :56 TSH (45094) Comments: PATIENT WAS FASTINGPERFORMED BY: [facility] Ijyvaw3689 [facility] [id number] TSH 2.180 {uIU/mL} (Normal) Range: 0.450-4.500 :56 LIPID PANEL (10970) Comments: PATIENT WAS FASTINGPERFORMED BY: [facility] Thecwj9073 [facility] [id number] LDL/HDL Ratio 1.8 {ratio_units} (Normal) Range: 0.0-3.2 [...] Range: 100-199 :36 CBC W/Diff, Automated Comments: [facility] [address] [place], [place], [id number] Absolute Lymph 1.31 {X10_3/ul} (Normal) Range: 0.83-4.51 [...] 4.2-5.4 WBC 10.5 K/mm3 (Normal) Range: 4.4-11.0 5-Znj-016433:36 Magnesium Comments: [facility] [address] [place], [place], [phone](619) MG 1.9 mg/dL (Normal) Range: 1.8-2.4 3-Wxr-538565:36 Protein+Creatinine Ratio,Urine Comments: [facility] [address] [place], [address] PROT:CRE RATIO 120 {mg/g_CRE} (Normal) Range: 0-200 PROTEIN,UR.RAN. 13.6 mg/dL (Abnormal) UR CREAT 113.00 mg/dL (Normal) 1-Ucu-287287:36 PTH,INTACT Comments: [facility] [address] [place], [id number] PTH,Intact 27 pg/mL (Normal) Range: 14-72 9-Trc-744687:36 Renal Profile Comments: [facility] [address] [place], [address] CO2 27.0 [...] per A.D.A. criteria. :36 Uric Acid Comments: [facility] [address] [place], [address] URIC 7.5 mg/dL (Abnormal) Range: 2.6-6.0 Comments: The drugs N-Acetylcysteine and Metamizole may falsely deressthis assay. 0-Dlz-281915:36 Vitamin D,25 Hydroxy Comments: [facility] [address] [place], [address] Vitamin D 25-OH 33.9 ng/mL (Normal) Comments: Vitamin D 25(OH) Status Range Deficiency <20 ng/mL (50nmol/L) Insuffciency 20 - 30 ng/mL (50 - 75 nmol/L) Sufficiency 30 - 100 ng/mL (75 - 250 nmol/L) Toxicity >100 ng/mL (>250 nmol/L) :24 Renal Profile Comments: [facility] [address] [place], [place], [phone] CO2 24.0 mmol/L (Normal) Range: 21.0-32.0 CL [...] Immature Cells Comments: PATIENT WAS FASTINGPERFORMED BY: Ivaldi Curedo8214 [facility] [id number] Myelocytes 4 % (Abnormal) Range: 0 - 0 :46 Microscopic Examination Comments: PATIENT WAS FASTINGPERFORMED BY: [facility]6370 [facility]Alert[facility]olin[facility] [id number] Bacteria Few (Normal) Mucus Threads Present (Normal) Crystal Type Calcium Oxalate (Normal) Crystals Present (Abnormal) Epithelial Cells (non renal) 0-10 {/hpf} (Normal) Range: 0 - 10 RBC 3-10 {/hpf} (Abnormal) Range: 0 - 2 WBC 11-30 {/hpf} (Abnormal) Range: 0 - 5 :47 Sputum Culture (65278) Comments: PATIENT NOT FASTINGPERFORMED BY: [facility] FlomioAt[facility] Health [facility] [id number] Information: SRC:SP Result 1 RRF (Normal) Comments: Routine respiratory hermelindo Lower Respiratory Culture Final report (Normal) :46 CALCIFEDIOL (46215) Comments: PATIENT WAS FASTINGPERFORMED BY: [facility]6370 [facility] [id number] Vitamin D, 25-Hydroxy 32.4 ng/mL (Normal) Range: 30.0-100.0 Comments: Vitamin D deficiency has been defined by the Marks ofMedicine and an Endocrine Society practice guideline as alevel of serum 25-OH vitamin D less than 20 ng/mL (1,2).The Endocrine Society went on to further define vitamin Dinsufficiency as a level between 21 and 29 ng/mL (2).1. IOM (Marks of Medicine). 2010. Dietary reference intakes for calcium and D. [place]: The National Academies Press.2. Stephon MF, Ana NC, Alka ROMERO, et al. Evaluation, treatment, and prevention of vitamin D deficiency: an Endocrine Society clinical practice guideline. JCEM. 2010; 96(7):1911-30. :46 Metabolic Panel, Comprehensive Comments: PATIENT WAS FASTINGPERFORMED BY: [facility] Gltdyo0038 [facility] [id number] (15969) ALT (SGPT) 19 [iU]/L (Normal) Range: 0-32 [...] Glucose, Serum 126 mg/dL (Abnormal) Range: 65-99 94-Bes-66111:46 CBC WITH MANUAL DIFF Comments: PATIENT WAS FASTINGPERFORMED BY: [facility] Center6370 [facility] [id number] Information: [id number] (66491) Hematology Comments: Note: (Normal) Comments: Manual differential [...] 14.0 {x10E3/uL} (Abnormal) Range: 3.4-10.8 :46 URINALYSIS (15314) Comments: PATIENT WAS FASTINGPERFORMED BY: [facility] [id number] Microscopic Examination See below: (Normal) Comments: Microscopic was indicated and was performed. Nitrite, Urine Negative (Normal) Urobilinogen,Semi-Qn 0.2 mg/dL (Normal) Range: 0.2-1.0 Bilirubin Negative (Normal) Occult Blood Negative (Normal) Ketones Negative (Normal) Glucose 2+ (Abnormal) Protein Negative (Normal) WBC Esterase 3+ (Abnormal) Appearance Clear (Normal) Urine-Color Yellow (Normal) pH 6.5 (Normal) Range: 5.0-7.5 Specific Bethelridge 1.022 (Normal) Range: 1.005-1.030 :46 MICROALBUMIN: CREATININE RATIO Comments: PATIENT WAS FASTINGPERFORMED BY: [facility] [facility] [id number] (57641) AND (75132) Microalb/Creat Ratio 10.1 {mg/g_creat} (Normal) Range: 0.0-30.0 Microalbumin, Urine 7.3 ug/mL (Normal) Creatinine, Urine 72.6 mg/dL (Normal) :46 TSH (21311) Comments: PATIENT WAS FASTINGPERFORMED BY: [place] [id number] TSH 2.600 {uIU/mL} (Normal) Range: 0.450-4.500 :46 Lipid Panel (58557) Comments: PATIENT WAS FASTINGPERFORMED BY: PRATIMA [facility] Awlveb9176 [facility] [id number]; has appt 08/20, will review at that [...] (Normal) Range: 100-199 :49 HgA1C , Office (30549) HgA1C , Office 6.6 % (Normal) Range: 4.6 - 7.1 :49 Blood Glucose , Office (41977) Blood Glucose , Office 113 (Normal) :10 CBC W/Diff, Automated Comments: [facility] [address] [place], [place], [phone] Absolute Lymph 1.40 {X10_3/ul} (Normal) Range: 0.83-4.51 [...] (Normal) Range: 4.4-11.0 :10 Magnesium Comments: Comments: [facility] [address] [place], [phone](831) MG 1.9 mg/dL (Normal) Range: 1.8-2.4 :10 Protein+Creatinine Ratio,Urine Comments: [facility] [address] [place], [address] PROT:CRE RATIO 112 {mg/g_CRE} (Normal) Range: 0-200 PROTEIN,UR.RAN. 8.1 mg/dL (Normal) UR CREAT 72.10 mg/dL (Normal) 75-Xhc-870362:10 PTH,INTACT Comments: [facility] [address] [place], [phone] PTH,Intact 29 pg/mL (Normal) Range: 14-72 :10 Renal Profile Comments: Comments: [facility] [address] [place], [place], [phone](012) CO2 25.0 mmol/L (Normal) Range: 21.0-32.0 CL [...] 126 mg/dLsuggests DIABETES MELLITUS per A.D.A. criteria. :10 Uric Acid Comments: Comments: [facility] [address] [address] [facility] [address] [place], [place], [address] URIC 7.1 mg/dL (Abnormal) Range: 2.6-6.0 Comments: The drugs N-Acetylcysteine and Metamizole may falsely deressthis assay. :10 Vitamin D,25 Hydroxy Comments: [facility] [address] [facility] [place], [place], [address] Vitamin D 25-OH 35.5 ng/mL (Normal) Comments: Vitamin D 25(OH) Status Range Deficiency <20 ng/mL (50nmol/L) Insuffciency 20 - 30 ng/mL (50 - 75 nmol/L) Sufficiency 30 - 100 ng/mL (75 - 250 nmol/L) Toxicity >100 ng/mL (>250 nmol/L) :10 CALCIUM SERUM (88935) Comments: PATIENT NOT FASTINGPERFORMED BY: [facility]6370 [facility] [id number] Information: [id number] Calcium, Serum 10.3 mg/dL (Normal) Range: 8.7-10.3 46-Zky-623495:10 MAGNESIUM (90769) Comments: PATIENT NOT FASTINGPERFORMED BY: [facility]6370 [facility] [id number] Magnesium, Serum 2.1 mg/dL (Normal) Range: 1.6-2.3 6-Tda-440441:14 Bedside Glucose Comments: [facility] LaboratoryPoint of [address]tgm[address] [place] [address] BEDSIDE GLU 110 mg/dL (Normal) Range: 70-110 Comments: MANAGEMENT OF PATIENT CARE PER NURSING PROTOCOL 07-Lwh-777633:26 Metabolic Panel, Basic Comments: PATIENT NOT FASTINGPERFORMED BY: [place] 3125470 [facility] [id number] Information: [id number]; will review on 06/04 (94335) Calcium, Serum 10.0 mg/dL (Normal) Range: 8.7-10.3 [...] Glucose, Serum 104 mg/dL (Abnormal) Range: 65-99 21-Eak-873054:39 Magnesium Comments: ORDERED CA AND PTHINDR.LUZ ORDERED CBC PTHIN RENAL VITD CRE/PROURIC [facility] [address] [place], [address] MG 2.0 mg/dL (Normal) Range: 1.8-2.4 :39 Protein+Creatinine Ratio,Urine Comments: [facility] [address] [place], [phone] PROT:CRE RATIO 188 {mg/g_CRE} (Normal) Range: 0-200 PROTEIN,UR.RAN. < 6.0 mg/dL (Normal) UR CREAT 29.80 mg/dL (Normal) :39 PTH,INTACT Comments: [facility] [address] [place], [phone] PTH,Intact 53 pg/mL (Normal) Range: 14-72 :39 Renal Profile Comments: ORDERED CA AND PTHINDR.LUZ ORDERED CBC PTHIN RENAL VITD CRE/PROURIC [facility] [address] [place], [place], [address] CO2 22.0 mmol/L (Normal) Range: 21.0-32.0 CL [...] 200 mg/dLsuggests DIABETES MELLITUS per A.D.A. criteria. 12-Akk-751824:39 Uric Acid Comments: ORDERED CA AND PTHINDR.LUZ ORDERED CBC PTHIN RENAL VITD CRE/PROURIC [facility] [address] [place], [address] URIC 7.3 mg/dL (Abnormal) Range: 2.6-6.0 Comments: The drugs N-Acetylcysteine and Metamizole may falsely deressthis assay. :39 Vitamin D,25 Hydroxy Comments: [facility] [address] [place], [address] Vitamin D 25-OH 52.3 ng/mL (Normal) Comments: Vitamin D 25(OH) Status Range Deficiency <20 ng/mL (50nmol/L) Insuffciency 20 - 30 ng/mL (50 - 75 nmol/L) Sufficiency 30 - 100 ng/mL (75 - 250 nmol/L) Toxicity >100 ng/mL (>250 nmol/L) 5-Gzb-845629:09 URINE CALCIUM KAITLIN TIMED Comments: PATIENT NOT FASTINGPERFORMED BY: [facility] Lkqnqi4066 [facility] [id number] Information: [id number] 2500ML START @6AM FINISH 05/05/16@ 6AM (86754) Calcium, Urine 24hr 45.0 {mg/24_hr} (Abnormal) Range: 100.0-300.0 Calcium, Urine 1.8 mg/dL (Normal) 02-May-20169:30 Fecal Occult Blood , Office (90452) Fecal Occult Blood , Office (Inhouse) negative (Normal) 31-Uii-308795:23 Crystals, Body Fluid Comments: [facility] [address] [place], [address] PATH REV Reviewed (Normal) Comments: Negative for malignant cells.Mixture of calcium pyrophosphate (pseudogout) crystals andnondescript crystals are noted.Johnson Castro M.D. 04/29/16 SOURCE/BF SYNOVIAL (Normal) CRYSTALS/BF SEE PATH REV (Normal) 37-Cgp-155408:23 Culture, Body Fluid Comments: [facility] [address] [place], [address] CUBF See Note (Normal) Comments: List Antibiotics Last 48 Hours? UNKList Antibiotics to be Started? UNKGram StainCentrifuged Specimen? Culture performed on centrifuged specimen Gram Stain Rare Red Cell Stroma Rare Red Blood Cells No organisms seen Body Fluid CultNO GROWTH IN 14 DAYS Cult, AnaerobicNo growth in 5 days. :23 GLUCOSE, SYNOVIAL FLUID Comments: ORDERED WRONGSpecimen Source: [...] be integrated into the clinical contextfor interpretation. :23 Synovial Fluid RBC, WBC AND Comments: [facility] [address] [address] [place], [address] Diff PATH COM/SYFL March (Normal) OTHER CELL [...] COLOR Yellow (Normal) VISCOSITY/SYFL Sl. Viscous (Normal) 7-Bmt-824306:58 CALCIUM SERUM (67496) Comments: PATIENT NOT FASTINGPERFORMED BY: Qitio [facility] [id number] Information: [id number] Calcium, Serum 10.6 mg/dL (Abnormal) Range: 8.7-10.3 92-Cvl-66883:10 Microscopic Examination Comments: PATIENT WAS FASTINGPERFORMED BY: Qitio [facility] [id number] Bacteria None seen (Normal) Mucus Threads Present (Normal) Epithelial Cells (non renal) 0-10 {/hpf} (Normal) Range: 0 - 10 RBC None seen {/hpf} (Normal) Range: 0 - 2 WBC 0-5 {/hpf} (Normal) Range: 0 - 5 :10 CALCIFIDIOL (27260) VIT D 25 Comments: PATIENT WAS FASTINGPERFORMED BY: Qitio [facility] [id number] Vitamin D, 25-Hydroxy 63.0 ng/mL (Normal) Range: 30.0-100.0 Comments: Vitamin D deficiency has been defined by the Marks ofMedicine and an Endocrine Society practice guideline as alevel of serum 25-OH vitamin D less than 20 ng/mL (1,2).The Endocrine Society went on to further define vitamin Dinsufficiency as a level between 21 and 29 ng/mL (2).1. IOM (Marks of Medicine). 2010. Dietary reference intakes for calcium and D. [place]: The National Academies Press.2. Stephon MF, Ana NC, Alka ROMERO, et al. Evaluation, treatment, and prevention of vitamin D deficiency: an Endocrine Society clinical practice guideline. JCEM. 2010; 96(7):1911-30. :10 TSH (88314) Comments: PATIENT WAS FASTINGPERFORMED BY: [employer] [place] [id number] TSH 2.680 {uIU/mL} (Normal) Range: 0.450-4.500 :10 URINALYSIS, W/ MICRO (29805) Comments: PATIENT WAS FASTINGPERFORMED BY: [facility] [id number] Microscopic Examination See below: (Normal) Comments: Microscopic was indicated and was performed. Microscopic Examination MICRON (Normal) Comments: Microscopic follows if indicated. Nitrite, Urine Negative (Normal) Urobilinogen,Semi-Qn 0.2 mg/dL (Normal) Range: 0.2-1.0 Bilirubin Negative (Normal) Occult Blood Negative (Normal) Ketones Negative (Normal) Glucose 3+ (Abnormal) Protein Negative (Normal) WBC Esterase Negative (Normal) Appearance Clear (Normal) Urine-Color Yellow (Normal) pH 6.5 (Normal) Range: 5.0-7.5 Specific Bethelridge 1.022 (Normal) Range: 1.005-1.030 :10 MICROALBUMIN: CREATININE RATIO Comments: PATIENT WAS FASTINGPERFORMED BY: [facility] [id number] (81462) AND (03364) Microalb/Creat Ratio 20.5 {mg/g_creat} (Normal) Range: 0.0-30.0 Microalbumin, Urine 20.1 ug/mL (Normal) Comments: Please note reference interval change Creatinine, Urine 97.9 mg/dL (Normal) Comments: Please note reference interval change :10 LIPID PANEL (85709) Comments: PATIENT WAS FASTINGPERFORMED BY: [facility] ElmerGmjjaj7851 [facility] [id number] LDL/HDL Ratio 2.0 {ratio_units} (Normal) Range: 0.0-3.2 [...] PANEL, COMPREHENSIVE Comments: PATIENT WAS FASTINGPERFORMED BY: Stellarcasa SA Uzchto5551 [facility] [id number]; will review on 04.18 (75063) ALT (SGPT) 18 [iU]/L (Normal) Range: 0-32 [...] Glucose, Serum 143 mg/dL (Abnormal) Range: 65-99 02-Hip-80605:10 CBC W/AUTO DIFF WBC Comments: PATIENT WAS FASTINGPERFORMED BY: [facility]6370 [facility] [id number] Information: [id number] (50570) Immature Grans (Abs) 0.0 {x10E3/uL} (Normal) Range: [...] 3.77-5.28 WBC 7.8 {x10E3/uL} (Normal) Range: 3.4-10.8 76-Fsb-693736:02 HgA1C , Office (38268) HgA1C , Office 6.6 % (Normal) Range: 4.6 - 7.1 91-Skk-607859:02 Blood Glucose , Office (11287) Blood Glucose , Office 142 (Normal) 42-Lkj-770331:20 NuSwab Vaginitis Plus Comments: PATIENT NOT FASTINGPERFORMED BY: Lab[address] [id number] Information: [id number] (STD W/O Herpes) (96050) Neisseria gonorrhoeae, YAIR Negative (Normal) Chlamydia trachomatis, YAIR Negative (Normal) Trich vag by YAIR Negative (Normal) Yana glabrata, YAIR Negative (Normal) Comments: This test was developed and its performance characteristics determinedby [facility]. It has not been cleared or approved [...] was developed and its performance characteristics determinedby [facility]. It has not been cleared or appro tima by the Food and DrugAdministration. The FDA has determined that such clearance orapproval is not necessary. BVAB 2 Low - 0 {Score} (Normal) Atopobium vaginae Low - 0 {Score} (Normal) 97-Myr-643829:56 Magnesium Comments: Test performed at:[facility] [address] [place], [place] [address] MG 2.2 mg/dL (Normal) Range: 1.8-2.4 :56 Protein+Creatinine Ratio,Urine Comments: Test performed at:[facility] [address] [place] [id number] PROT:CRE RATIO 440 {mg/g_CRE} (Abnormal) Range: 0-200 PROTEIN,UR.RAN. 8.1 mg/dL (Normal) UR CREAT 18.20 mg/dL (Normal) 62-Yer-347871:56 Renal Profile Comments: Test performed at:[facility] [address] [place] [address] CO2 28.0 mmol/L (Normal) Range: 21.0-32.0 CL [...] Comments: Please note revised CREATININE reference range npmknuhfp91/22/2015. BUN 44 mg/dL (Abnormal) Range: 7-18 GLU 186 mg/dL (Abnormal) Range: 70-110 Comments: Fasting Glucose result greater than or equal to 126 mg/dLsuggests DIABETES MELLITUS per A.D.A. criteria. :56 Uric Acid Comments: Test performed at:[facility] [address] [place] [address] URIC 6.5 mg/dL (Abnormal) Range: 2.6-6.0 :56 Vitamin D,25 Hydroxy Comments: Test performed at:[facility] [address] [place] [address] Vitamin D 25-OH 67.0 ng/mL (Normal) Comments: Vitamin D 25(OH) Status Range Deficiency <20 ng/mL (50nmol/L) Insuffciency 20 - 30 ng/mL (50 - 75 nmol/L) Sufficiency 30 - 100 ng/mL (75 - 250 nmol/L) Toxicity >100 ng/mL (>250 nmol/L) 56-Uul-114776:01 Rapid Strep Test, Office (70734) Rapid Strep Test, Office Negative (Normal) :21 HgA1C , Office (97827) HgA1C , Office 6.4 % (Normal) Range: 4.6 - 7.1 :21 Blood Glucose , Office (83919) Blood Glucose , Office 167 (Normal) :01 Microscopic Examination Comments: PATIENT WAS FASTINGPERFORMED BY: [facility] [id number] Bacteria Few (Normal) Mucus Threads Present (Normal) Epithelial Cells (non renal) 0-10 {/hpf} (Normal) Range: 0 - 10 RBC 0-2 {/hpf} (Normal) Range: 0 - 2 WBC 6-10 {/hpf} (Abnormal) Range: 0 - 5 :50 Antinuclear Antibodies Direct Comments: PATIENT NOT FASTINGPERFORMED BY: Qitio WuDirect HitAtrium Health [facility] [id number] HEIDI Direct Negative (Normal) : C-Reactive Protein, 7.3 mg/L (Abnormal) Comments: PATIENT NOT FASTINGPERFORMED BY: [facility] [id number] 50 Quant Range: 0.0-4.9 :50 CBC, Platelet, No Differential Comments: PATIENT NOT FASTINGPERFORMED BY: [facility] [id number] Platelets 253 {x10E3/uL} (Normal) Range: 150-379 RDW 15.0 % (Normal) Range: 12.3-15.4 MCHC 32.2 g/dL (Normal) Range: 31.5-35.7 MCH 28.1 pg (Normal) Range: 26.6-33.0 MCV 87 fL (Normal) Range: 79-97 Hematocrit 40.1 % (Normal) Range: 34.0-46.6 Hemoglobin 12.9 g/dL (Normal) Range: 11.1-15.9 RBC 4.59 {x10E6/uL} (Normal) Range: 3.77-5.28 WBC 8.2 {x10E3/uL} (Normal) Range: 3.4-10.8 2-Aul-894733:50 Comp. Metabolic Panel (14) Comments: PATIENT NOT FASTINGPERFORMED BY: [facility] Psrzys1802 [facility] [id number] Information: [id number] ALT (SGPT) 17 [iU]/L (Normal) Range: 0-32 [...] Glucose, Serum 121 mg/dL Range: 65-99 (Abnormal) 6-Tdr-000547: Folate (Folic Acid), 17.4 ng/mL (Normal) Comments: PATIENT NOT FASTINGPERFORMED BY: PRATIMA Nelson[employer] Xdhxby7584 Wu [facility] [place] [id number] 50 Serum Comments: A serum folate concentration of less than 3.1 ng/mL isconsidered to represent clinical deficiency. :50 Rheumatoid Arthritis Factor Comments: PATIENT NOT FASTINGPERFORMED BY: [facility] Aekkaa3256 Wu [facility] [place] [id number] RA Latex Turbid. 10.5 {IU/mL} Range: 0.0-13.9 (Normal) Sedimentation 7 mm/h (Normal) Comments: PATIENT NOT FASTINGPERFORMED BY: [facility] Icshxj9370 Wu [facility] [place] [id number] :50 Rate-Westergren Range: 0-40 TSH 2.450 {uIU/mL} Comments: PATIENT NOT FASTINGPERFORMED BY: [facility] Uplmky8582 [facility] [place] [id number] :50 (Normal) Range: 0.450-4.500 Vitamin B12 1684 pg/mL Comments: PATIENT NOT FASTINGPERFORMED BY: PRATIMA HYGIEIACo Yjndhz3127 Wu [facility] [place] [id number] :50 (Abnormal) Range: 211-946 Vitamin D, 25-Hydroxy 75.1 ng/mL Comments: PATIENT NOT FASTINGPERFORMED BY: [facility] Izbwtc2473 Wu [facility] [place] [id number] :50 (Normal) Range: 30.0-100.0 Comments: Vitamin D deficiency has been defined by the Marks ofMedicine and an Endocrine Society practice guideline as alevel of serum 25-OH vitamin D less than 20 ng/mL (1,2).The Endocrine Society went on to further define vitamin Dinsufficiency as a level between 21 and 29 ng/mL (2).1. IOM (Marks of Medicine). 2010. Dietary reference intakes for calcium and D. [place]: The National Academies Press.2. Stephon MF, Ana ROY, Alka ROMERO, et al. Evaluation, treatment, and prevention of vitamin D deficiency: an Endocrine Society clinical practice guideline. JCEM. 2010; 96(7):6101-30. 4-Flk-597375:57 Lower Respiratory Culture Comments: PATIENT NOT FASTINGPERFORMED BY: [employer] Yjhxbl9659 [employer] [place] [id number] Information: SRC:[facility] [id number] Result 1 RRF (Normal) Comments: Routine respiratory hermelindo Lower Respiratory Culture Final report (Normal) :01 MICROALBUMIN: CREATININE RATIO Comments: PATIENT WAS FASTINGPERFORMED BY: [employer]70 [facility]TextAt[facility] [id number] (59663) AND (03396) Microalb/Creat Ratio 22.8 {mg/g_creat} (Normal) Range: 0.0-30.0 Microalbumin, Urine 18.8 ug/mL (Abnormal) Range: 0.0-17.0 Creatinine, Urine 82.6 mg/dL (Normal) Range: 15.0-278.0 :01 URINALYSIS (24788) Comments: PATIENT WAS FASTINGPERFORMED BY: [facility] Uwuhnd8029 [facility]Car[facility] [id number] Microscopic Examination See below: (Normal) Comments: Microscopic was indicated and was performed. Nitrite, Urine Negative (Normal) Urobilinogen,Semi-Qn 0.2 mg/dL (Normal) Range: 0.0-1.9 Bilirubin Negative (Normal) Occult Blood Negative (Normal) Ketones Negative (Normal) Glucose 2+ (Abnormal) Protein Negative (Normal) WBC Esterase Trace (Abnormal) Appearance Clear (Normal) Urine-Color Yellow (Normal) pH 6.5 (Normal) Range: 5.0-7.5 Specific Bethelridge 1.020 (Normal) Range: 1.005-1.030 :01 Metabolic Panel, Comments: PATIENT WAS FASTINGPERFORMED BY: [facility] Dghgzy7857 [employer] [place] [id number] Information: [id number], [id number] Comprehensive (72221) ALT (SGPT) 17 [iU]/L (Normal) Range: 0-32 [...] Glucose, Serum 110 mg/dL (Abnormal) Range: 65-99 37-Jja-37523:01 CALCIFEDIOL (09699) Comments: PATIENT WAS FASTINGPERFORMED BY: [facility]6370 [facility] [id number] Vitamin D, 25-Hydroxy 101.0 ng/mL (Abnormal) Range: 30.0-100.0 Comments: Vitamin D deficiency has been defined by the Marks ofMedicine and an Endocrine Society practice guideline as alevel of serum 25-OH vitamin D less than 20 ng/mL (1,2).The Endocrine Society went on to further define vitamin Dinsufficiency as a level between 21 and 29 ng/mL (2).1. IOM (Marks of Medicine). 2010. Dietary reference intakes for calcium and D. [place]: The National Academies Press.2. Stephon HOLCOMB, Ana NC, Alka ROMERO, et al. Evaluation, treatment, and prevention of vitamin D deficiency: an Endocrine Society clinical practice guideline. JCEM. 2010; 96(7):1911-30. :01 Lipid Panel (03528) Comments: PATIENT WAS FASTINGPERFORMED BY: [facility] Extnre2725 [facility] [id number] LDL/HDL Ratio 1.4 {ratio_units} (Normal) Range: 0.0-3.2 [...] (Normal) Range: 100-199 :06 HgA1C , Office (70423) HgA1C , Office 6.4 % (Normal) Range: 4.6 - 7.1 :06 Blood Glucose , Office (96613) Blood Glucose , Office 168 (Normal) :43 CBC W/Diff, Automated Comments: Test performed at:[facility] [address] [place] [address] Absolute Lymph 1.33 {X10_3/ul} (Normal) Range: 0.83-4.51 [...] Range: 4.4-11.0 :43 Magnesium Comments: Test performed at:[facility] [address] [place] [address] MG 1.6 mg/dL (Abnormal) Range: 1.8-2.4 :43 Protein+Creatinine Ratio,Urine Comments: Test performed at:[facility] L[address] [place] [address] PROT:CRE RATIO 143 {mg/g_CRE} (Normal) Range: 0-200 PROTEIN,UR.RAN. 16.0 mg/dL (Abnormal) UR CREAT 111.6 mg/dL (Normal) :43 Renal Profile Comments: Test performed at:[facility] [address] [place] [address] CO2 29.0 mmol/L (Normal) Range: 21.0-32.0 CL [...] criteria. :43 Uric Acid Comments: Test performed at:[facility] Uwwluofmsd3563 [facility] [place], [place] [address] URIC 7.5 mg/dL (Abnormal) Range: 2.6-6.0 :43 Vitamin D,25 Hydroxy Comments: Test performed at:[facility] Hmlbfohoof1506 [facility] [place] [address] Vitamin D 25-OH 48.0 ng/mL (Normal) Comments: Vitamin D 25(OH) Status Range Deficiency <20 ng/mL (50nmol/L) Insuffciency 20 - 30 ng/mL (50 - 75 nmol/L) Sufficiency 30 - 100 ng/mL (75 - 250 nmol/L) Toxicity >100 ng/mL (>250 nmol/L) :16 HgA1C , Office (44060) HgA1C , Office 5.6 % (Normal) Range: 4.6 - 7.1 :16 Blood Glucose , Office (23610) Blood Glucose , Office 113 (Normal) :35 CALCIUM SERUM (42580) Comments: PATIENT NOT FASTINGPERFORMED BY: [facility] Xbkesv5226 [facility] [id number] Information: [id number] Calcium, Serum 10.0 mg/dL (Normal) Range: 8.6-10.2 :55 HEIDI Negative (Normal) Comments: Performed at: - Lab[address] [id number] Director: Taurus Morrissey MD, Phone: [phone] :[phone] CBCD ALC 1.15 {X10_3/ul} (Normal) Range: [...] HEBSAG ttHEBSAG Negative (Normal) Comments: Performed at: [facility] [address] [id number] Director: Taurus Morrissey MD, Phone: [phone] at: [place] [address] [place], [place] [id number] 1Lab Director: Juan Carlos Mathew MD, Phone: [phone] :[phone] HECAB tHECAB 0.1 {s/co_ratio} (Normal) Range: 0.0-0.9 Comments: Negative: < 0.8Indeterminate 0.8 - 0.9Positive: > 0.9In order to reduce the incidence of a false positiveresult, the CDC recommends that all s/co ratiosbetween 1.0 and 10.9 be confirmed by a more specificsupplemental or PCR testing. [facility] offers HCV Abw/Reflex to Verification test #[id number]. :55 RF < 10.0 {IU/mL} (Normal) :55 SED tSEDRATE 7 mm/h (Normal) Range: 0-30 :55 VITD 45.5 mg/mL (Normal) Comments: Vitamin D 25(OH) Status RangeDeficiency <20 ng/mL (50nmol/L)Insuffciency 20 - 30 ng/mL (50 - 75 nmol/L)Sufficiency 30 - 100 ng/mL (75 - 250 nmol/L)Toxicity >100 ng/mL (>250 nmol/L) :05 CALCIFEDIOL (21714) Comments: PATIENT NOT FASTINGPERFORMED BY: PRATIMA [facility]CoInspira Medical Center ElmerDmkfqm9572 [facility] [id number] Information: [id number] Vitamin D, 25-Hydroxy 34.1 ng/mL (Normal) Range: 30.0-100.0 Comments: Vitamin D deficiency has been defined by the Marks ofMedicine and an Endocrine Society practice guideline as alevel of serum 25-OH vitamin D less than 20 ng/mL (1,2).The Endocrine Society went on to further define vitamin Dinsufficiency as a level between 21 and 29 ng/mL (2).1. IOM (Marks of Medicine). 2010. Dietary reference intakes for calcium and D. [place]: The National Academies Press.2. Stephon MF, Ana NC, Alka ROMERO, et al. Evaluation, treatment, and prevention of vitamin D deficiency: an Endocrine Society clinical practice guideline. JCEM. 2010; 96(7):1911-30. 84-Tio-34703:05 CALCIUM SERUM (61347) Comments: PATIENT NOT FASTINGPERFORMED BY: PRATIMA Asher6370 Wu [facility] [id number] Calcium, Serum 10.3 mg/dL (Abnormal) Range: 8.6-10.2 :43 CALCIFIDIOL (85249) VIT D Comments: PATIENT NOT FASTINGPERFORMED BY: PRATIMA HYGIEIAKindred Hospital Odwzld7159 [facility] [id number] Information: [id number] 25 Vitamin D, 25-Hydroxy 44.7 ng/mL (Normal) Range: 30.0-100.0 Comments: Vitamin D deficiency has been defined by the Marks ofMedicine and an Endocrine Society practice guideline as alevel of serum 25-OH vitamin D less than 20 ng/mL (1,2).The Endocrine Society went on to further define vitamin Dinsufficiency as a level between 21 and 29 ng/mL (2).1. IOM (Marks of Medicine). 2010. Dietary reference intakes for calcium and D. [place]: The National Academies Press.2. Stephon MF, Ana ROY, Alka ROMERO, et al. Evaluation, treatment, and prevention of vitamin D deficiency: an Endocrine Society clinical practice guideline. JCEM. 2010; 96(7):1911-30. 27-Aor-206685:36 URINE CALCIUM KAITLIN TIMED Comments: PATIENT NOT FASTINGPERFORMED BY: HYGIEIAKindred Hospital Waxifm4459 [facility] [id number] Information: [id number] 1950ML START 05/21@630AM FINISH 05/22/14@6 30AM 24 Hour (57018) Calcium, Urine 24hr 93.6 {mg/24_hr} (Abnormal) Range: 100.0-300.0 Calcium, Urine 4.8 mg/dL (Normal) :43 PARATHORMONE (05387) Comments: PATIENT NOT FASTINGPERFORMED BY: HYGIEIAVeterans Affairs Medical Center6370 [facility] [id number] PTH, Intact 22 pg/mL (Normal) Range: 15-65 83-Qwc-39320:56 Metabolic Panel, Basic Comments: drawn next ; PATIENT NOT FASTINGPERFORMED BY: HYGIEIAVeterans Affairs Medical Center6370 [facility] [id number] Information: [id number] (91726) Calcium, Serum 10.5 mg/dL (Abnormal) Range: 8.6-10.2 Carbon Dioxide, Total 22 mmol/L (Normal) Range: 19-28 Comments: Effective May 15, 2014, the reference interval for Carbon Dioxide, Total will be changing to: 0 - 30 days 31 d - 5 months 6 m - 11 months 1 - 12 years 17 - 27 [...] Glucose, Serum 113 mg/dL (Abnormal) Range: 65-99 0-Jew-158719:50 METABOLIC PANEL, Comments: PATIENT NOT FASTINGPERFORMED BY: IvaldiInspira Medical Center ElmerWdjyln4503 [facility] [id number] Information: [id number] COMPREHENSIVE (16666) ALT (SGPT) 22 [iU]/L (Normal) Range: 0-32 [...] days - 31 d - 5 months - 6 m - 11 months - 1 - 12 years 17 - [...] (Abnormal) Range: 65-99 :13 HgA1C , Office (61940) HgA1C , Office 6.5 % (Normal) Range: 4.6 - 7.1 :13 Blood Glucose , Office (33998) Blood Glucose , Office 163 (Normal) :41 [...] CREATININE RATIO Comments: PATIENT WAS FASTINGPERFORMED BY: [facility] [id number] (22223) AND (65375) Microalb/Creat Ratio 6.2 {mg/g_creat} (Normal) Range: 0.0-30.0 Microalbumin, Urine 2.2 ug/mL (Normal) Range: 0.0-17.0 Creatinine, Urine 35.7 mg/dL (Normal) Range: 15.0-278.0 :38 URINALYSIS (89795) Comments: PATIENT WAS FASTINGPERFORMED BY: [facility] [id number] Microscopic Examination MICRON (Normal) Comments: Microscopic follows if indicated. Nitrite, Urine Negative (Normal) Urobilinogen,Semi-Qn 0.2 mg/dL (Normal) Range: 0.0-1.9 Bilirubin Negative (Normal) Occult Blood Negative (Normal) Ketones Negative (Normal) Glucose Negative (Normal) Protein Negative (Normal) WBC Esterase Negative (Normal) Appearance Clear (Normal) Urine-Color Yellow (Normal) pH 7.5 (Normal) Range: 5.0-7.5 Specific Bethelridge 1.010 (Normal) Range: 1.005-1.030 :38 CALCIFEDIOL (66181) Comments: PATIENT WAS FASTINGPERFORMED BY: LabVeterans Affairs [facility] Center6370 [facility] [id number] Vitamin D, 25-Hydroxy 44.7 ng/mL (Normal) Range: 30.0-100.0 Comments: Vitamin D deficiency has been defined by the Marks ofOhiohealth [facility] Hospitalcine and an Endocrine Society practice guideline as alevel of serum 25-OH vitamin D less than 20 ng/mL (1,2).The Endocrine Society went on to further define vitamin Dinsufficiency as a level between 21 and 29 ng/mL (2).1. IOM (Marks of Medicine). 2010. Dietary reference intakes for calcium and D. [place]: The National Academies Press.2. Stephon MF, Ana ROY, Alka ROMERO, et al. Evaluation, treatment, and prevention of vitamin D deficiency: an Endocrine Society clinical practice guideline. JCEM. 2010; 96(7):1911-30. :38 TSH (92784) Comments: PATIENT WAS FASTINGPERFORMED BY: LabCoInspira Medical Center ElmerBhtdmk1389 [facility] [id number] TSH 2.930 {uIU/mL} (Normal) Range: 0.450-4.500 :38 CBC with manual diff Comments: PATIENT WAS FASTINGPERFORMED BY: LabVeterans Affairs [facility] Center6370 [facility] [id number] Information: [id number] (88384) Immature Grans (Abs) 0.0 {x10E3/uL} (Normal) Range: [...] Panel, Comprehensive Comments: PATIENT WAS FASTINGPERFORMED BY: LabCoInspira Medical Center ElmerSdvlvg4171 [facility] [id number] (22557) ALT (SGPT) 22 [iU]/L (Normal) Range: 0-32 [...] mg/dL (Normal) Range: 65-99 :38 Lipid Panel (73352) Comments: PATIENT WAS FASTINGPERFORMED BY: [employer]70 [facility] [id number] LDL/HDL Ratio 1.2 {ratio_units} (Normal) Range: 0.0-3.2 LDL Cholesterol Calc 53 mg/dL (Normal) Range: 0-99 VLDL Cholesterol Yamilka 27 mg/dL (Normal) Range: 5-40 HDL Cholesterol 45 mg/dL (Normal) Comments: According to ATP-III Guidelines, HDL-C >59 mg/dL is considered anegative risk factor for CHD. Triglycerides 135 mg/dL (Normal) Range: 0-149 Cholesterol, Total 125 mg/dL (Normal) Range: 100-199 :05 LIPID PANEL (44587) Comments: PATIENT WAS FASTINGPERFORMED BY: [employer] Lmunfx2907 [facility] [id number] Information: [id number] LDL/HDL Ratio 1.6 {ratio_units} (Normal) Range: 0.0-3.2 LDL Cholesterol Calc 76 mg/dL (Normal) Range: 0-99 VLDL Cholesterol Yamilka 30 mg/dL (Normal) Range: 5-40 HDL Cholesterol 49 mg/dL (Normal) Comments: According to ATP-III Guidelines, HDL-C >59 mg/dL is considered anegative risk factor for CHD. Triglycerides 148 mg/dL (Normal) Range: 0-149 Cholesterol, Total 155 mg/dL (Normal) Range: 100-199 34-Uzj-851379:43 FECAL OCCULT HGB ASSAY- tubes sent home (55058) FECAL OCCULT HGB ASSAY, QUAL, 1-3 SIMULTANEOU negative (Normal) 03-Bnk-681403:40 Nuclear Stress Test Radiology Report See Note [...] The patient was injected with 31.6 mCi bgZs79y Cardiolite and subsequently stress SPECT Cardiolite nuclear [...] of 73%. Dictated on 07/29/13 1056 by Mayur FELIX,YosiTranscribed on 07/29/13 1340 by Wiliam MASON by Mayur FELIX,Yosi on 07/29/13 1751 Sign by: Yosi Merchant MD 14-Hwt-31537:52 KNEE 1 OR 2 VIEWS Radiology Report [...] Ferguson M.D.July 29, 2013 at 5:00:35 PM [id number] Signed RU/RU If you are the referring phys ician and would like to consult with theradiologist who provided this interpretation, please contact Alejandro Horton at [phone]. If this radiologist is unavailable, youwillbe directed to [facility] radiologist to assist. If you are a patient with a question regarding this report, pleasecontactyour referring physician directly. Professional Interpretation Provided By: [employer] ([email or web address]), Phone , These documents contain legally protected and confidential healthinformation intended only for the use of the individual or entity namedabove. If you are not the intended recipie nt, you are hereby notifiedthatany disclosure, copying, distribution, or other use of these documents isstrictly prohibited. If you have received this information in error,pleasenotify the sender melania shaw and arrange for the return or destructionofthese documents. Dictated on 07/29/131699 by Ag FergusonTranscribed on 07/29/131713 by ITS IMPORTSign by Ag Ferguson on 07/29/131714 Si gn by: Ag Ferguson 65-Xlt-71994:52 KNEE 1 OR 2 VIEWS Radiology Report [...] Ferguson M.D.July 29, 2013 at 5:02:45 PM [id number] Signed RU/RU If you are the referring physician and would like to consult with therad iologist who provided this interpretation, please contact Alejandro Horton at [phone]. If this radiologist is unavailable, youwillbe directed to another radiologist to assist. If you are a sandra ent with a question regarding this report, pleasecontactyour referring physician directly. Professional Interpretation Provided By: HenryZetrOZ, Phone , These documents con tain legally [...] Ferguson on 07/29/131716 Sign by: Ag Ferguson 63-Kgt-146950:27 CCP ANTIBODY (41005) Comments: PATIENT NOT FASTINGPERFORMED BY: [facility]6370 [facility] [id number] BY: Ivaldi[address] [id number] CCP Antibodies IgG/IgA 5 {units} (Normal) Range: 0-19 Comments: Negative <20 Weak positive 20 - 39 Moderate positive 40 - 59 Strong positive >59 20-Vfm-376166:27 SED RATE ERYTHROCYTE Comments: PATIENT NOT FASTINGPERFORMED BY: [employer] Fvdbhc2011 [facility] [id number] BY: Ivaldi[address] [id number] (88015) Sedimentation Rate-Westergren 2 mm/h (Normal) Range: 0-40 89-Pyu-466392:27 C-REACTIVE PROTEIN Comments: PATIENT NOT FASTINGPERFORMED BY: [employer] Pgifpa2478 [facility] [id number] BY: HYGIEIA[address] [id number] (39935) C-Reactive Protein, Quant 2.1 mg/L (Normal) Range: 0.0-4.9 :27 TSH (39068) Comments: PATIENT NOT FASTINGPERFORMED BY: LabCoJason Ville 4702570 [facility] [id number] BY: [address] [id number] TSH 1.630 {uIU/mL} (Normal) Range: 0.450-4.500 21-Jcj-336385:27 RHEUMATOID FACTOR-QUANT Comments: PATIENT NOT FASTINGPERFORMED BY: LabCynthia [place] 6690870 [facility] [id number] BY: [address] [id number] (19637) RA Latex Turbid. 9.7 {IU/mL} (Normal) Range: 0.0-13.9 :27 HEIDI (ANTINUCLEAR ANTIBODY) Comments: PATIENT NOT FASTINGPERFORMED BY: LabCyn[place] 6690870 [facility] [id number] BY: [address] [id number] (24333) HEIDI Direct Negative (Normal) : CBC WITH MANUAL DIFF Comments: PATIENT NOT FASTINGPERFORMED BY: [place] 3125470 [facility] [id number] BY: [address] [id number] Inf ormation: [id number] (61175) Immature Grans (Abs) 0.0 {x10E3/uL} (Normal) Range: [...] 3.77-5.28 WBC 8.5 {x10E3/uL} (Normal) Range: 4.0-10.5 83-Uxw-546993:27 METABOLIC PANEL, Comments: PATIENT NOT FASTINGPERFORMED BY: [facility] Oojiwg6248 [facility] [id number] BY: [facility] [address] [id number] [facility] (82384) ALT (SGPT) 24 [iU]/L (Normal) Range: 0-32 [...] (Normal) Range: 65-99 :22 HgA1C , Office (99367) HgA1C , Office 5.9 % (Normal) Range: 4.6 - 7.1 :22 Blood Glucose , Office (14682) Blood Glucose , Office 148 (Normal) Comments: non fasting :44 MAGNESIUM (13404) Comments: copy to dr jose mayes; PATIENT NOT FASTINGPERFORMED BY: LaunchLabInspira Medical Center ElmerIahiue4164 [facility]The [facility] [id number] Magnesium, Serum 2.0 mg/dL (Normal) Range: 1.6-2.6 7-Ydr-449408:44 Metabolic Panel, Basic Comments: copy to dr jose Mayes; PATIENT NOT FASTINGPERFORMED BY: LaunchLabInspira Medical Center ElmerSqvqwb1258 [facility] [id number] Information: [id number] (27599) Calcium, Serum 10.1 mg/dL (Normal) Range: 8.6-10.2 [...] Glucose, Serum 141 mg/dL (Abnormal) Range: 65-99 72-Qkm-530470:10 PTT (Activated Partial Comments: PATIENT NOT FASTINGPERFORMED BY: [place] 3125470 [facility] [id number] Thromboplastin Time) (49600) aPTT 30 {sec} (Normal) Range: 24-33 Comments: This test has not been validated for monitoring unfractionated heparintherapy. aPTT-based therapeutic ranges for unfractionated heparintherapy have not been established. For general guidelines onHeparin monitoring, refer to the [facility] Directory of Services. 34-Gro-967460:10 PT (Prothrobim Time) Comments: PATIENT NOT FASTINGPERFORMED BY: [place] 3125470 [facility] [id number] Information: [id number] (32702) Prothrombin Time 10.4 {sec} (Normal) Range: 9.1-12.0 INR 1.0 (Normal) Range: 0.8-1.2 Comments: Reference interval is for non-anticoagulated patients. . Suggested INR therapeutic range for Vitamin K anta gonist therapy: Standard Dose (moderate intensity therapeutic range): 2.0 - 3.0 Higher intensity therapeutic range 2.5 - 3.5 06-Mjz-122526:10 Potassium Serum (91071) Comments: PATIENT NOT FASTINGPERFORMED BY: [place] [id number] [facility] [id number] Potassium, Serum 3.9 mmol/L (Normal) Range: 3.5-5.2 20-Klc-589951:10 Magnesium (43290) Comments: PATIENT NOT FASTINGPERFORMED BY: [place] 3125470 [facility] [id number] Magnesium, Serum 1.9 mg/dL (Normal) Range: 1.6-2.6 :59 HgA1C , Office (02408) HgA1C , Office 5.7 % (Normal) Range: 4.6 - 7.1 :59 Blood Glucose , Office (23982) Blood Glucose , Office 149 (Normal) :08 TSH (51486) Comments: PATIENT WAS FASTINGPERFORMED BY: Ivaldi [employer] [facility] [id number] TSH 2.390 {uIU/mL} (Normal) Range: 0.450-4.500 :08 URINALYSIS, W/ MICRO (34278) Comments: PATIENT WAS FASTINGPERFORMED BY: Ivaldi [employer] [facility] [id number] Microscopic Examination See below: (Normal) Microscopic Examination MICRON (Normal) Comments: Microscopic follows if indicated. Nitrite, Urine Negative (Normal) Urobilinogen,Semi-Qn 0.2 mg/dL (Normal) Range: 0.0-1.9 Bilirubin Negative (Normal) Occult Blood Negative (Normal) Ketones Negative (Normal) Glucose Negative (Normal) Protein Negative (Normal) Appearance Clear (Normal) WBC Esterase Negative (Normal) pH 7.5 (Normal) Range: 5.0-7.5 Specific [place] 1.013 (Normal) Range: 1.005-1.030 Urine-Color Yellow (Normal) :08 MICROALBUMIN: CREATININE RATIO Comments: PATIENT WAS FASTINGPERFORMED BY: [employer]valdi [employer] [facility] [id number] (83110) AND (15612) Microalb/Creat Ratio 3.8 {mg/g_creat} (Normal) Range: 0.0-30.0 Microalbumin, Urine 2.9 ug/mL (Normal) Range: 0.0-17.0 Creatinine, Urine 77.3 mg/dL (Normal) Range: 15.0-278.0 :08 METABOLIC PANEL, COMPREHENSIVE Comments: PATIENT WAS FASTINGPERFORMED BY: [employer]di [employer] [facility] [id number] (17201) ALT (SGPT) 17 [iU]/L (Normal) Range: 0-32 [...] Glucose, Serum 108 mg/dL (Abnormal) Range: 65-99 01-Apr-20138:08 LIPID PANEL (10948) Comments: PATIENT WAS FASTINGPERFORMED BY: [facility] ElmerJkqkto6183 [facility] [id number] LDL/HDL Ratio 2.1 {ratio_units} (Normal) Range: 0.0-3.2 [...] MANUAL DIFF Comments: PATIENT WAS FASTINGPERFORMED BY: PRATIMA [facility]The [facility] [id number] Information: ADD [id number] AND DRAW FEE 99 9498 (41383) Immature Grans (Abs) 0.0 {x10E3/uL} (Normal) Range: [...] 3.77-5.28 WBC 7.9 {x10E3/uL} (Normal) Range: 4.0-10.5 01-Apr-20138:08 Microscopic Examination Comments: PATIENT WAS FASTINGPERFORMED BY: PRATIMA Bunchball [facility] [id number] Bacteria None seen (Normal) Mucus Threads Present (Normal) Epithelial Cells (non renal) 0-10 {/hpf} (Normal) Range: 0 - 10 RBC 0-3 {/hpf} (Normal) Range: 0 - 3 WBC 0-5 {/hpf} (Normal) Range: 0 - 5 :49 HgA1C , Office (03740) HgA1C , Office 5.8 % (Normal) Range: 4.6 - 7.1 :49 Blood Glucose , Office (25609) Blood Glucose , Office 142 (Normal) 4-Rpk-345856:13 ALFONZO CULTURE-OTHER (31542) Comments: PATIENT NOT FASTINGPERFORMED BY: [place] 3125470 [facility] [id number] Information: SRC:THRT [id number] Result 1 RRF (Normal) Comments: Routine respiratory hermelindo Upper Respiratory Culture Final report (Normal) 3-Emj-274916:30 Rapid Strep Test, Office (97052) Rapid Strep Test, Office Negative (Normal) 34-Byd-113828:36 URIC ACID BLOOD (93260) Comments: PATIENT NOT FASTINGPERFORMED BY: HYGIEIAVeterans Affairs Medical Center6370 [facility] [id number] Information: [id number] Uric Acid, Serum 6.6 mg/dL (Normal) Range: 2.5-7.1 Comments: Therapeutic target for gout patients: <6.0 :29 Blood Glucose , Office (40707) Blood Glucose , Office 128 (Normal) :29 HgA1C , Office (72342) HgA1C , Office 5.5 % (Normal) Range: 4.6 - 7.1 :11 HgA1C , Office (22774) HgA1C , Office 5.5 % (Normal) Range: 4.6 - 7.1 27-Xbj-074128:11 Blood Glucose , Office (86533) Blood Glucose , Office 127 (Normal) :35 Microscopic Examination Comments: PATIENT WAS FASTINGPERFORMED BY: [place] 3125470 [facility] [id number] Bacteria Few (Normal) Mucus Threads Present (Normal) Cast Type Hyaline casts (Normal) Casts Present {/lpf} (Abnormal) Epithelial Cells (non renal) 0-10 {/hpf} (Normal) Range: 0 - 10 RBC 0-3 {/hpf} (Normal) Range: 0 - 3 WBC 6-10 {/hpf} (Abnormal) Range: 0 - 5 :35 TSH (75183) Comments: PATIENT WAS FASTINGPERFORMED BY: [facility]diInspira [facility] Center ElmerRzzkpa3300 [facility] [id number] TSH 1.550 {uIU/mL} (Normal) Range: 0.450-4.500 :35 URINALYSIS, W/ MICRO (61169) Comments: PATIENT WAS FASTINGPERFORMED BY: [facility]diMemorial Medical CenterOlujuh1506 [facility] [id number] Microscopic Examination See below: (Normal) Nitrite, Urine Negative (Normal) Urobilinogen,Semi-Qn 0.2 mg/dL (Normal) Range: 0.0-1.9 Bilirubin Negative (Normal) Occult Blood Negative (Normal) Ketones Negative (Normal) Glucose Negative (Normal) Protein Negative (Normal) WBC Esterase 1+ (Abnormal) Appearance Clear (Normal) Urine-Color Yellow (Normal) pH 6.5 (Normal) Range: 5.0-7.5 Specific [place] 1.019 (Normal) Range: 1.005-1.030 :35 MICROALBUMIN: CREATININE RATIO Comments: PATIENT WAS FASTINGPERFORMED BY: I[facility]diMemorial Medical CenterDyccbm2031 [facility] [id number] (48180) AND (10402) Microalb/Creat Ratio 7.8 {mg/g_creat} (Normal) Range: 0.0-30.0 Microalbumin, Urine 17.2 ug/mL (Abnormal) Range: 0.0-17.0 Creatinine, Urine 220.8 mg/dL (Normal) Range: 15.0-278.0 :35 METABOLIC PANEL, COMPREHENSIVE Comments: PATIENT WAS FASTINGPERFORMED BY: [facility]diInsp[facility] Center ElmerByegek0094 [facility] [id number] (04503) ALT (SGPT) 17 [iU]/L (Normal) Range: 0-40 [...] Glucose, Serum 97 mg/dL (Normal) Range: 65-99 07-Wvo-79914:35 LIPID PANEL (01997) Comments: PATIENT WAS FASTINGPERFORMED BY: [facility] ElmerQcarxf2283 [facility] [id number] LDL/HDL Ratio 1.0 {ratio_units} (Normal) Range: 0.0-3.2 [...] MANUAL DIFF Comments: PATIENT WAS FASTINGPERFORMED BY: [facility]6370 [facility] [id number] Information: [id number] (21497) Immature Grans (Abs) 0.0 {x10E3/uL} (Normal) Range: [...] (Normal) Range: 4.0-10.5 :33 HgA1C , Office (20927) HgA1C , Office 5.7 % (Normal) Range: 4.6 - 7.1 :33 Blood Glucose , Office (66915) Blood Glucose , Office 115 (Normal) :50 KIDNEY Radiology Report See Note (Normal) Comments: [...] hydronephrosis. Dicta jorge on 07/18/11 1052 by Essie FELIX,MarcianoTranscribed on 07/19/11 0429 by ITS IMPORTSign by Essie FELIX,Marciano on 07/19/11 0430 Sign by: Marciano Fountain MD 90-Cwy-610553:50 PARATHORMONE (86787) Comments: PATIENT NOT FASTINGPERFORMED BY: [employer] [facility] Veeiam9298 [facility]AlertCar[facility] [id number] PTH, Intact 20 pg/mL (Normal) Range: 15-65 36-Ttq-244415:50 Metabolic Panel, Comments: PATIENT NOT FASTINGPERFORMED BY: [employer] [facility] Axzzxu2049 [facility]TextAt[facility] [id number] Information: [id number] Comprehensive (97623) ALT (SGPT) 23 [iU]/L (Normal) Range: 0-40 [...] Glucose, Serum 94 mg/dL (Normal) Range: 65-99 23-Xtq-433528:06 Metabolic Panel, Comments: PATIENT NOT FASTINGPERFORMED BY: [facility] ElmerOefwkl8394 [facility] [id number] Information: [id number] Comprehensive (37442) ALT (SGPT) 30 [iU]/L (Normal) Range: 0-40 [...] Glucose, Serum 92 mg/dL (Normal) Range: 65-99 00-Nee-74662:17 METABOLIC PANEL, Comments: PATIENT WAS FASTINGPERFORMED BY: [facility] Xujvwp4222 [facility] [id number] Information: [id number] COMPREHENSIVE (97767) ALT (SGPT) 27 [iU]/L (Normal) Range: 0-40 [...] Glucose, Serum 85 mg/dL (Normal) Range: 65-99 :17 LIPID PANEL (30769) Comments: PATIENT WAS FASTINGPERFORMED BY: [facility] Wpmhhk5428 [place] [id number] LDL/HDL Ratio 1.1 {ratio_units} (Normal) Range: 0.0-3.2 LDL Cholesterol Calc 46 mg/dL (Normal) Range: 0-99 VLDL Cholesterol Yamilka 28 mg/dL (Normal) Range: 5-40 HDL Cholesterol 41 mg/dL (Normal) Comments: According to ATP-III Guidelines, HDL-C >59 mg/dL is considered anegative risk factor for CHD. Triglycerides 140 mg/dL (Normal) Range: 0-149 Cholesterol, Total 115 mg/dL (Normal) Range: 100-199 :38 Blood Glucose , Office (26243) Blood Glucose , Office 132 (Normal) :38 HgA1C , Office (35066) HgA1C , Office 5.7 % (Normal) Range: 4.6 - 7.1 03-Epy-595993:01 BILAT SCRN DIGITAL & CAD Radiology Report [...] clinically suspiciousabnormality. Dictated on 05/22/11 0916 by Ric FELIX,DwighteleTranscribed on 05/26/11 1050 by ITS IMPORTSign by Anam Larios MD on 05/26/11 1051 S ign by: Anam Larios MD 35-Kaw-705317:01 DEXA BONE DENSITY STUDY (HP) Radiology Report [...] FECAL OCCULT HGB ASSAY- tubes sent home (59704) FECAL OCCULT HGB ASSAY, QUAL, 1-3 SIMULTANEOU negative (Normal) :32 HgA1C , Office (20606) HgA1C , Office 8.6 % (Abnormal) Range: 4.6 - 7.1 :32 Blood Glucose , Office (99978) Blood Glucose , Office 324 (Normal) :30 [...] 200 mg/dLsuggests DIABETES MELLITUS per A.D.A. criteria. 57-Meh-50133:30 COMPLETE UA MUCUS, URINE 0 SEEN {/hpf} [...] {uIU/mL} (Normal) Range: 0.358-3.74 :45 CULTURE, SPUTUM (53929) Comments: PATIENT NOT FASTINGPERFORMED BY: [facility] ElmerApuhey5923 [facility] [id number] Information: SRC:[facility] [id number] Result 1 RRF (Normal) Comments: Routine respiratory hermelindo Lower Respiratory Culture Final report (Normal) :48 HgA1C , Office (11817) HgA1C , Office 5.8 % (Normal) Range: 4.6 - 7.1 :48 Blood Glucose , Office (09197) Blood Glucose , Office 124 (Normal) :20 CHEST WITH CONTRAST Radiology Report See Note (Normal) Comments: Exam Number: [id number] CLINICAL:Sarcoidosis, shortness of breath, wheezing CT CHEST [...] allunchanged. Previous cholecystectomy? Reported By: PO MANCILLA 98-Izd-11607:15 SERUM CRE & GFR EST GFR - AA 65 mL/min (Normal) EST GFR 54 mL/min (Abnormal) CREAT,SERUM 1.1 mg/dL (Abnormal) Range: 0.6-1.0 11-Utn-219575:42 CHEST, PA AND LATERAL (MT) Radiology Report See Note (Normal) Comments: Exam Number: [id number] CHEST X- RAY PA AND LATERAL VIEWS HISTORY:Pneumonitis due to food inhalation/aspiration. FINDINGS:PA and lateral views of the chest compared to previous chest x-rayexam ination of O nv2008. There is moderate-degree ofdextroscoliotic curvature thoracolumbar spine. Mild cardiomegaly.No definite evidence of focal pulmonary infiltrates or effusions arenoted. No significant interval change from previous exam. Nopneumothorax. IMPRESSION:1. No acute pulmonary findings. No significant interval changesfrom previous chest x-ray examination of September 28, 2009. Mildcardiomeg zunilda. There is moderate dextroscoliotic curvature. Reported By: Joseph Núñez 95-Ije-955224:15 MAGNESIUM (26553) Comments: PATIENT NOT FASTINGPERFORMED BY: [facility]Co[facility] ElmerNjowlo7599 [facility] [id number] Magnesium, Serum 2.1 mg/dL (Normal) Range: 1.6-2.6 87-Yfz-528624:15 Renal function Panel Comments: PATIENT NOT FASTINGPERFORMED BY: [facility] ElmerAqminc3354 [facility] [id number] Information: [id number] (47108) Albumin, Serum 4.7 g/dL (Normal) Range: 3.5-5.5 [...] (Abnormal) Range: 65-99 :46 HgA1C , Office (77829) HgA1C , Office 6.0 % (Normal) Range: 4.6 - 7.1 :46 Blood Glucose , Office (80768) Blood Glucose , Office 140 (Normal) :27 [...] 11.6-14.6 WBC 10.3 K/mm3 (Normal) Range: 4.4-11.0 28-Feb-20107:27 LIVER D BILI 0.15 mg/dL (Normal) Range: 0.00-0.30 ALB 4.1 g/dL (Normal) Range: 3.4-5.0 ALK P 97 U/L (Normal) Range: 50-136 ALT 26 U/L (Normal) Range: 12-78 AST 19 U/L (Normal) Range: 15-37 T BILI 0.40 mg/dL (Normal) Range: 0.00-1.00 T PROT 7.8 g/dL (Normal) Range: 6.4-8.2 34-Bvc-131599:11 CBC with manual diff Comments: PATIENT NOT FASTINGPERFORMED BY: [facility] Dmpxql4305 [facility] [id number] Information: [id number] (22276) Baso (Absolute) 0.0 {x10E3/uL} (Normal) Range: 0.0-0.2 [...] 3.80-5.10 WBC 9.0 {x10E3/uL} (Normal) Range: 4.0-10.5 59-Zqy-338895:55 Microscopic Examination Comments: PATIENT WAS FASTINGPERFORMED BY: Sarah LipoScience Hvi0216 [facility] [id number] BY: CB [facility] Oilpul6299 [facility] [id number] Bacteria Few (Normal) Cast Type Hyaline casts (Normal) Mucus Threads Present (Normal) Casts Present {/lpf} (Abnormal) Epithelial Cells (non renal) 0-10 {/hpf} (Normal) Range: 0 - 10 RBC 0-3 {/hpf} (Normal) Range: 0 - 3 WBC 0-5 {/hpf} (Normal) Range: 0 - 5 63-Iqa-903679:34 HgA1C , Office (69093) HgA1C , Office 5.9 % (Normal) Range: 4.6 - 7.1 85-Euh-481444:34 Blood Glucose , Office (53350) Blood Glucose , Office 140 (Normal) 94-Mqw-622762:55 TSH (53240) Comments: PATIENT WAS FASTINGPERFORMED BY: [facility] Community HospitalTraak Systems[address] [id number] BY: [facility] HospitalAtievaInspira Medical Center ElmerFxwktd4204 [facility] [id number] TSH 0.541 {uIU/mL} (Normal) Range: 0.450-4.500 Comments: Effective December 24, 2009, TSH reference interval for11 - 19 years will be changing to: 0.450 - 4.500 uIU/mLReference interval for all other ages will NOT be affected. 61-Jtk-211377:55 URINALYSIS, W/ MICRO Comments: PATIENT WAS FASTINGPERFORMED BY: [facility] HospitalTraak Systems[address] [id number] BY: [facility]diInspira Medical Center ElmerXeowhk7292 [facility] [id number] (88398) Bilirubin Negative (Normal) Microscopic Examination MICRON (Normal) Comments: Microscopic follows if indicated. Microscopic Examination See below: (Normal) Nitrite, Urine Negative (Normal) Occult Blood Negative (Normal) Urobilinogen,Semi-Qn 0.2 mg/dL (Normal) Range: 0.0-1.9 Glucose Negative (Normal) Ketones Negative (Normal) Protein Negative (Normal) WBC Esterase Negative (Normal) Appearance Clear (Normal) pH 6.0 (Normal) Range: 5.0-7.5 Specific [place] 1.020 (Normal) Range: 1.005-1.030 Urine-Color Yellow (Normal) 90-Gwi-121794:55 MICROALBUMIN: CREATININE Comments: PATIENT WAS FASTINGPERFORMED BY: [facility] HospitalTra[facility] Systems[address] [id number] BY: [facility]6370 [facility] [id number] RATIO (69590) AND (73839) Microalb/Creat Ratio 7.1 {mg/g_creat} (Normal) Range: 0.0-30.0 Microalbumin, Urine 8.6 ug/mL (Normal) Range: 0.0-17.0 Creatinine, Urine 120.9 mg/dL (Normal) Range: 15.0-278.0 57-Shv-946887:55 METABOLIC PANEL, Comments: PATIENT WAS FASTINGPERFORMED BY: Sarah [employer] Igv4577 [place] manuelMercer County Community Hospitaleitian [place] [id number] BY: PRATIMA [facility] Ojlpba4708 [place] [id number] COMPREHENSIVE (82235) ALT (SGPT) 24 [iU]/L (Normal) Range: 0-40 [...] Glucose, Serum 105 mg/dL (Abnormal) Range: 65-99 88-Xlf-924786:55 LIPOPROTEIN, BLD, BY NMR Comments: PATIENT WAS FASTINGPERFORMED BY: S7 [employer] Geq8407 [facility] [id number] BY: PRATIMA LabVeterans Affairs Medical Center6370 [facility] [id number] Information: [id number] (92994) Large VLDL-P 2.9 nmol/L (Abnormal) Comments: Small [...] 1599High 1600 - 2000Very high > 2000. 79-Jor-129191:55 CBC WITH MANUAL DIFF Comments: PATIENT WAS FASTINGPERFORMED BY: S7 [employer] Yrs[address]23 [facility] [id number] BY: LabVeterans Affairs Medical Center6370 [facility] [id number] (04083) Baso (Absolute) 0.0 {x10E3/uL} (Normal) Range: 0.0-0.2 [...] kidney disease, stage III (moderate) : Reviewed Procurement Analyst Letter Indication: Chronic kidney disease, stage III (moderate) Chronic kidney disease, stage III (moderate) : Reviewed Lab Indication: Chronic kidney disease, stage III (moderate) Hypercholesteremia : Cholesterol mgmt Indication: Hypercholesteremia Atrial fibrillation : Continue Current Prescription(s) Indication: Atrial fibrillation Atrial fibrillation : Reviewed Procurement Analyst Letter Indication: Atrial fibrillation Hypertension with renal [...] KIDNEY DISEASE, STAGE IV (SEVERE) : Reviewed Procurement Analyst Letter Indication: CHRONIC KIDNEY DISEASE, STAGE IV (SEVERE) Diabetic autonomic neuropathy associated with type 2 diabetes mellitus : Follow up in 3 months Indication: Diabetic autonomic neuropathy associated with type 2 diabetes mellitus Chronic kidney disease, stage III (moderate) : Reviewed Procurement Analyst Letter Indication: Chronic kidney disease, stage III [...] sequela Aspiration of food, sequela : Reviewed Procurement Analyst Letter- sibila and bronch Indication: Aspiration of [...] Diagnostic Tests Indication: Sarcoidosis Sarcoidosis : Reviewed Procurement Analyst Letter Indication: Sarcoidosis DM (diabetes mellitus), type 1, uncontrolled, with renal complications : Follow up in 3 months Indication: DM (diabetes mellitus), type 1, uncontrolled, with renal complications DM (diabetes mellitus), type 1, uncontrolled, with renal complications : Reviewed Lab Indication: DM (diabetes mellitus), type 1, uncontrolled, with renal complications Asthma : Continue Current Prescription(s) Indication: Asthma Asthma : Reviewed Procurement Analyst Letter Indication: Asthma CHRONIC KIDNEY DISEASE, STAGE IV (SEVERE) : Reviewed Procurement Analyst Letter Indication: CHRONIC KIDNEY DISEASE, STAGE IV [...] GERD (gastroesophageal reflux disease) Asthma : Reviewed Procurement Analyst Letter Indication: Asthma Asthma : Continue Current Prescription(s) Indication: Asthma DM (diabetes mellitus), type 1, uncontrolled, with renal complications : Follow up in 3 months- do ekg Indication: DM (diabetes mellitus), type 1, uncontrolled, with renal complications Chronic kidney disease, stage III (moderate) : Reviewed Procurement Analyst Letter Indication: Chronic kidney disease, stage III [...] typeII,controlled, renal comp Atrial fibrillation : Reviewed Procurement Analyst Letter Indication: Atrial fibrillation Hypercholesteremia : Reviewed [...] Indication: Impacted fracture Impacted fracture : Reviewed Procurement Analyst Letter Indication: Impacted fracture Hypertension with renal [...] kidney disease, stage III (moderate) : Reviewed Procurement Analyst Letter- Dr Ribeiro Indication: Chronic kidney disease, [...] kidney disease, stage III (moderate) : Reviewed Procurement Analyst Letter Indication: Chronic kidney disease, stage III [...] kidney disease, stage III (moderate) : Reviewed Procurement Analyst Letter Indication: Chronic kidney disease, stage III [...] kidney disease, stage III (moderate) : Reviewed Procurement Analyst Letter Indication: Chronic kidney disease, stage III [...] kidney disease, stage III (moderate) : Reviewed Procurement Analyst Letter-- dr ribeiro Indication: Chronic kidney disease, [...] kidney disease, stage III (moderate) : Reviewed Procurement Analyst Letter: Dr ribeiro Indication: Chronic kidney disease, stage III (moderate) Diabetes mellitus type II, controlled : *Diabetes Education Indication: Diabetes mellitus type II, controlled Hypercholesteremia : Cholesterol mgmt Indication: Hypercholesteremia Hypertension with renal disease : Diet, Exercise, and Wt loss Indication: Hypertension with renal disease Hypertension with renal disease : HTN/CAD Red Flags Indication: Hypertension with renal disease Aspiration pneumonia : Reviewed Procurement Analyst Letter Indication: Aspiration pneumonia Aspiration pneumonia : [...] kidney disease, stage III (moderate) : Reviewed Procurement Analyst Letter Indication: Chronic kidney disease, stage III [...] kidney disease, stage III (moderate) : Reviewed Procurement Analyst Letter- w/u in progress Indication: Chronic kidney [...] Indication: GERD (gastroesophageal reflux disease) Planned Observations CALCIFIDIOL (91493) VIT D 25Indication: Vitamin D deficiency On: :22 Request TSH (86179)Indication: Diabetic autonomic neuropathy associated with type 2 diabetes mellitus On: :21 Request URINALYSIS, W/ MICRO (84051)Indication: Hypertension with renal disease On: :21 Request MICROALBUMIN: CREATININE RATIO (97232) AND (47389)Indication: Hypertension with renal disease On: :21 Request METABOLIC PANEL, COMPREHENSIVE (10505)Indication: Hypertension with renal disease On: :21 Request LIPOPROTEIN, BLD, BY NMR (08654)Indication: Hypertension with renal disease On: :21 Request CBC W/AUTO DIFF WBC (59355)Indication: Hypertension with renal disease On: :21 Request METABOLIC PANEL, COMPREHENSIVE (43363)Indication: Medication monitoring encounter On: 6-Npc-215345:10 Request Parathyroid Hormone-related Peptide (PTH-rP) (01931)Indication: Hypercalcemia On: :40 Request Comments: send copy dr ribeiro CALCIUM SERUM (61068)Indication: Hypercalcemia On: :40 Request Comments: send copy to dr ribeiro ELECTROLYTES, 24 HOUR URINE (45896)Indication: Hypercalcemia On: 9-Mjg-215159:49 Request POTASSIUM SERUM (08435)Indication: Hypercalcemia On: 5-Mir-815353:48 Request Parathyroid Hormone-related Peptide (PTH-rP) (05503)Indication: Hypercalcemia On: :48 Request CALCIUM SERUM (95720)Indication: Hypercalcemia On: :48 Request CALCIUM URINE 86176 (95889)Indication: Hypercalcemia On: :06 Request Comments: 24 hr urine ELECTROLYTES, 24 HOUR URINE (17203)Indication: Hypercalcemia On: :06 Request FECAL OCCULT- Tubes sent home (66060)Indication: Encounter for screening for malignant neoplasm of colon (Renamed from Special screening for malignant neoplasms, colon) On: 16-Yis-814367:47 Request Lipid Panel (62069)Indication: Hypercholesteremia On: 2-Etl-897358:02 Request CALCIFIDIOL (53723) VIT D 25Indication: FATIGUE On: :38 Request Folate (31896)Indication: FATIGUE On: :38 Request VITAMIN B-12 (CYANOCOBALAMIN) (62570)Indication: FATIGUE On: :38 Request TSH (64804)Indication: FATIGUE On: :38 Request SED RATE ERYTHROCYTE (50701)Indication: FATIGUE On: :38 Request RHEUMATOID FACTOR-QUANT (00853)Indication: FATIGUE On: :38 Request METABOLIC PANEL, COMPREHENSIVE (80759)Indication: FATIGUE On: :38 Request C-REACTIVE PROTEIN (76540)Indication: FATIGUE On: :38 Request CBC (AUTO) (15974)Indication: FATIGUE On: :38 Request HEIDI (ANTINUCLEAR ANTIBODY) (67508)Indication: FATIGUE On: :38 Request CULTURE, SPUTUM (60967)Indication: Cough On: 2-Ehv-189575:08 Request Metabolic Panel, Comprehensive (46139)Indication: Diabetes mellitus type 2, uncontrolled, without complications On: 19-Fbk-504995:21 Request FECAL OCCULT HGB ASSAY- tubes sent home (52813)Indication: Encounter for Medicare annual wellness exam On: 59-Nqp-82768:58 Request CALCIFIDIOL (98361) VIT D 25Indication: Vitamin D deficiency On: 23-Uma-38842:48 Request MAGNESIUM (68771)Indication: Hypomagnesemia On: 99-Iii-10121:47 Request URINE ALFONZO CULTURE (KAITLIN COL COUNT) (65948)Indication: Abdominal pain On: 58-Dtx-912580:37 Request Urinalysis, Office (05192)Indication: Abdominal pain On: 19-Kls-835390:37 Request FECAL OCCULT HGB ASSAY- tubes sent home (70728)Indication: Encounter for Medicare annual wellness exam On: 95-Hzm-07457:56 Request Metabolic Panel, Basic (91624)Indication: Chronic kidney disease, stage III (moderate) On: 68-Sau-170258:11 Request POTASSIUM SERUM (29942)Indication: Hypokalemia On: 44-Dcf-61001:13 Request TSH (82091)Indication: Diabetes mellitus type II, controlled On: : Request URINALYSIS, W/ MICRO (79242)Indication: Diabetes mellitus type II, controlled On: 1-Rxu-980725:01 Request MICROALBUMIN: CREATININE RATIO (96835) AND (71006)Indication: Diabetes mellitus type II, controlled On: 9-Stu-429356:01 Request METABOLIC PANEL, COMPREHENSIVE ([id number])Indication: Diabetes mellitus type II, controlled On: : Request LIPID PANEL ([id number])Indication: Diabetes mellitus type II, controlled On: : Request CBC WITH MANUAL DIFF ([id number])Indication: Diabetes mellitus type II, controlled On: : Request LIPOPROTEIN, BLD, BY NMR ([id number])Indication: Hypercholesteremia On: : Request LIPID PANEL ([id number])Indication: Hypercholesteremia On: : Request Comments: do in 3 months HEPATIC FUNCTION PANEL ([id number])Indication: Hypercholesteremia On: : Request LIPID PANEL ([id number])Indication: Hypertension, benign On: : Request Planned Encounters Medical; 3 Month FU - On: 09-Feb-2019 8:15 [facility] Veronica Oquendo DO, DO, Kathleen Planned Procedures Solu -Medrol Injection, 125 mg On: 18-Aug-2018 Intent (J2930)By: Kassandra Fortune CNP Flu Vaccine (Quadrivalent) 41195Vh: On: 09-Aug-2018 Intent Veronica Oquendo DO, DO, Comments: Lot #[id number]-L dltd, IMDose prefilled syringegiven by:Aye Diego LPNVIS reviewed and ABN signed Veronica ELECTROCARDIOGRAM, COMPLETE (ECG) On: 09-Aug-2018 Intent ([id number])By: Veronica Oquendo DO Comments: nsr - RBBB - no t acute Veronica Oquendo DO [id number] BEHAVIORAL COUNSELING On: 09-Apr-2018 Intent FOR OBESITY, 15 MINUTES (G0447)By: Veronica Oquendo DO, DO, Kathleen SCREENING DIGITAL TOMOSYNTHESIS OF On: 09-Apr-2018 Intent BREAST ([id number])By: Veronica Oquendo DO, DO, Kathleen Solu- Medrol Injection, 125mg On: 01-Jan-2018 Intent ([id number])By: Veronica Oquendo DO Comments: 125mg - 1 [id number] hip, CHONG Burden DO, Kathleen CHEST XRAY, PA & LATERAL ([id number])By: On: 23-Dec-2017 Intent Veronica Oquendo DO, DO, Kathleen CHEST XRAY, PA & LATERAL ([id number])By: On: 22-Dec-2017 Intent Kelsea Lund Aerosol Treatment (52698)By: On: 22-Dec-2017 Intent Kelsea Lund Comments: Still has wheezing in right lobe after aerosol treatment. 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 EKG (56189)By: Veronica Oquendo DO On: 14-Oct-2017 Intent Veronica Oquendo DO Comments: nsr no acute chg- RBBB Aerosol Treatment (21430)By: Azra On: 14-Aug-2017 Veronica Pabon DO, DO, Kathleen Comments: no noise and more a/e Solu- Medrol Injection, 125mg On: 14-Aug-2017 Intent ([id number])By: Veronica Oquendo DO Comments: lot [id number] mgright gmIMas, CUSTOMER SERVICE SUPERVISOR Veronica Oquendo DO Solu- Medrol Injection, 125mg On: 05-Aug-2017 Intent (J2930)By: Veronica Oquendo DO Comments: Lot:[id number]:11/17Dose:125mgRoute:imSite:r hipGiven By:KMVIS signed Veronica Oquendo DO Flu Vaccine (Quadrivalent) 30988Sj: On: 28-Jul-2017 Intent Veronica Oquendo DO, DO, Kathleen ELECTROCARDIOGRAM, COMPLETE (ECG) On: 28-Jul-2017 Intent ([id number])By: Veronica Oquendo DO, DO, Kathleen IV Needle placement (70491)By: On: 14-Jul-2017 Intent Kassandra Fortune CNP ORTHOSTATIC BLOOD PRESSURE On: 14-Jul-2017 Intent ASSESSMENT ([id number])By: Kassandra Fortune CNP INFUSION, NORMAL SALINE SOLUTION , On: 14-Jul-2017 Intent 1000 CC (Special Coverage Instructions Apply. See MCM: 2049) (J7030)By: Kassandra Fortune CNP Solu -Medrol Injection, 125 mg On: 22-Jun-2017 Intent (J2930)By: Kelsea Lund Solu- Medrol Injection, 125mg On: 17-Apr-2017 Intent (J2930)By: Veronica Oquendo DO Comments: Lot:[id number]:04/2019Dose:125mgRoute:imSite:l armGiven By:NOE signed Veronica Oquendo DO DEXA SCAN AXIAL SKELETON (37328)By: On: 06-Apr-2017 Intent Veronica Oquendo DO, DO, Kathleen SCREENING DIGITAL TOMOSYNTHESIS OF On: 06-Apr-2017 Intent BREAST ([id number])By: Veronica Oquendo DO, DO, Kathleen Flu Vaccine (Quadrivalent) [id number]: On: 20-Aug-2016 Intent Veronica Oquendo DO, DO, Comments: FLUlot: [id number]:05/29/17site:Lt deltoidroute:IMdose:.5mlVALENTINA MOBLEY Solu- Medrol Injection, 125mg On: 20-Aug-2016 Intent (J2930)By: Veronica Oquendo DO Comments: solumedrollot:[id number]:03/18site:lt glutroute:IMdose:125mgDVALENTINA Calderón DO, Kathleen Solu -Medrol Injection, 125 mg On: 13-Aug-2016 Intent (J2930)By: Kassandra Fortune CNP Comments: Lot:[id number]:02/2019Dose:125mgRoute:imSite:l hip Given By:JMICHAEL signed Aerosol Treatment ([id number])By: Irma On: 13-Aug-2016 Intent Clarisse SCHWARZ Radiology - Shoulder - LeftBy: Ciesa On: 04-Jul-2016 Intent BELLKassandra Radiology - Knee - LeftBy: Ciesa On: 04-Jul-2016 Intent BELL Kassandra Vargas Comments: send result to Dr. Delgadillo Toradol Injection, 30 mg ([id number])By: On: 04-Jul-2016 Intent Devika LUU Kassandra Vargas Aerosol Treatment (17752)By: Azra On: 12-May-2016 Intent Veronica JEAN-BAPTISTE DO, Kathleen Comments: less cough and more a./e- no wheeze Solu- Medrol Injection, 125mg On: 12-May-2016 Intent (J2930)By: Veronica Oquendo DO Comments: lot: [id number]: 12/18site/route: RGM/IMamt: 2mLVIS signed when applicableChelsSTARR randolph DO, Kathleen CT - Chest (IV Contrast Needed)By: On: 09-May-2016 Intent Veronica Oquendo DO, DO, Veronica Radiology - Chest- PA and LatBy: On: 08-May-2016 Intent Veronica Oquendo DO, DO, Veronica PNEUM VAC ADLT/IMUMNOSPR, SBC/INTRM On: 21-Apr-2016 Intent ([id number])By: Veronica Oquendo DO Comments: pneumovaxlot:[id number]:09/06/17site:lt deltroute:IMDVALENTINA Calderón DO, Kathleen YSYP-LK-NBRX BEHAVIORAL COUNSELING On: 21-Apr-2016 Intent FOR OBESITY, 15 MINUTES (G0447)By: Veronica Oquendo DO, DO, Kathleen MAMMOGRAM, SCREENING, BOTH BREAST On: 21-Apr-2016 Intent ([id number])By: Veronica Oquendo DO, DO, Kathleen Radiology - Knee - RightBy: Azra On: 14-Apr-2016 Intent Veronica JEAN-BAPTISTE DO, Kathleen Radiology - Knee - LeftBy: Azra On: 14-Apr-2016 Veronica Pabon DO, DO, Kathleen ADMINISTRATION OF INFLUENZA VIRUS On: 09-Aug-2015 Intent VACCINE (G0008)By: Veronica Oquendo DO, DO, Kathleen Flu Vaccine (Quadrivalent) 13113Oh: On: 09-Aug-2015 Intent Veronica Oquendo DO, DO, Comments: Lot:[id number]:02/27/16Dose:0.5mLRoute:IMSite:L DltdGiven By:NOE signed Veronica Solu -Medrol Injection, 125 mg On: 03-Aug-2015 Intent (J2930)By: Veronica Oquendo DO Comments: Lot:[id number]:12/2017Dose:125mgRoute:imSite:l armGiven By:NOE signed Veronica Oquendo DO Aerosol Treatment ([id number])By: Azra On: 03-Aug-2015 Veronica Pabon DO, DO, Kathleen Comments: more a/e after aerosol EKG (37188)By: Veronica Oquendo DO On: 19-Jul-2015 Intent Veronica Oquendo DO Comments: ming botello -- no new twave chg when compared to old ones Aerosol Treatment ([id number])By: Azra On: 30-Apr-2015 Veronica Pabon DO, DO, Kathleen Radiology - Chest- PA and LatBy: On: 27-Apr-2015 Intent Veronica Oquendo DO, DO, Kathleen DEXA SCAN AXIAL SKELETON (54441)By: On: 17-Apr-2015 Intent Veronica Oquendo DO, DO, Kathleen INTENSIVE BEHAVIORAL THERAPY TO On: 17-Apr-2015 Intent REDUCE CARDIOVASCULAR DISEASE RISK, INDIVIDUAL, CVRI-GX-VDBI, ANNUAL, 15 MINUTES (G0446)By: Veronica Oquendo DO, DO, Kathleen RTSI-MP-IWSU BEHAVIORAL COUNSELING On: 17-Apr-2015 Intent FOR OBESITY, 15 MINUTES (G0447)By: Veronica Oquendo DO, DO, Kathleen MAMMOGRAM, SCREENING, BOTH BREAST On: 17-Apr-2015 Intent (36355)By: Veronica Oquendo DO, DO, Kathleen EKG (88895)By: Veronica Oquendo DO On: 16-Aug-2014 Intent Veronica Oquendo DO Comments: nsr nonspecif st and t wave chg old not new Radiology - Chest- PA and LatBy: On: 15-May-2014 Intent Veronica Oquendo DO, DO, Kathleen Toradol Injection, 30 mg (J1885)By: On: 12-May-2014 Intent Devika LUU Dasia Comments: Lot:[id number]:10/30/15Dose:30mgRoute:imSite:r hipGiven By:NOE signed Eprescribed prescriptions (G8553)By: On: 01-May-2014 Intent Veronica Oquendo DO DOVeronica MAMMOGRAM, SCREENING, BOTH BREASTS On: 18-Apr-2014 Intent ([id number])By: Veronica Oquendo DO, DO, Kathleen EWUX-MT-IFGY BEHAVIORAL COUNSELING On: 18-Apr-2014 Intent FOR OBESITY, 15 MINUTES (G0447)By: Veronica Oquendo DO, DO, Kathleen Eprescribed prescriptions (G8553)By: On: 11-Apr-2014 Intent Veronica Oquendo DO DO Veronica Pulse Oximetry (94169)By: Azra JEAN-BAPTISTE, On: 11-Apr-2014 Intent Veronica Jurado DO Aerosol Treatment (63252)By: Devika On: 27-Sep-2013 Intent Kassandra LUU PAIB-KM-GMLC BEHAVIORAL COUNSELING On: 12-Sep-2013 Intent FOR OBESITY, 15 MINUTES (G0447)By: Veronica Oquendo DO DO, Veronica MAMMOGRAM, SCREENING, BOTH BREASTS On: 12-Sep-2013 Intent ([id number])By: Kelsea Richards LPN DRAIN/INJECT MAJOR JOINT OR BURSA On: 24-Aug-2013 Intent ()By: Kelsea Richards LPN Comments: [id number] exp 08/13 DRAIN/INJECT MAJOR JOINT OR BURSA On: 24-Aug-2013 Intent ()By: Kelsea Richards LPN Comments: lt knee lot [id number] exp 08/13 DRAIN/INJECT MAJOR JOINT OR BURSA On: 18-Aug-2013 Intent ()By: Kelsea Richards LPN Comments: lt knee lot [id number] exp 07/13 DRAIN/INJECT MAJOR JOINT OR BURSA On: 18-Aug-2013 Intent ()By: Kelsea Richards LPN Comments: rt knee lot [id number] exp 07-13 FLU VAC, SPLIT, >3 YEARS, INTRAMUSC On: 10-Aug-2013 Intent (83850)By: Veronica Oquendo DO Comments: lot [id number] 2014site/route L sabas, IMamt 0.5mlVIS and ABN signed when applicableSTARR Lui DO, Kathleen ADMINISTRATION OF INFLUENZA VIRUS On: 10-Aug-2013 Intent VACCINE (G0008)By: Sania Ritchie DRAIN/INJECT MAJOR JOINT OR BURSA On: 10-Aug-2013 Intent ()By: Kelsea Richards LPN Comments: euflexxa injection lt knee lot [id number] exp 07/13 DRAIN/INJECT MAJOR JOINT OR BURSA On: 10-Aug-2013 Intent ()By: Kelsea Richards LPN Comments: euflexxa injection rt knee lot [id number] exp 07/13 Solu- Medrol Injection, 125mg On: 03-Aug-2013 Intent (J2930)By: Veronica Oquendo DO Comments: injected over Left sciatic area - most tender spot marked - no bleed pt tolerated well -- 08/03/13 lot # Veronica Oquendo DO Eprescribed prescriptions (G8553)By: On: 03-Aug-2013 Intent Sania Ritchie Kenalog Injection, 10 mgm On: 21-Jul-2013 Intent (J3301)By: Veronica Oquendo DO Comments: used 40 mglot: [id number]: 02/11site/route: RGM/IMamt: 40VIS signed when applicableSTARR Lui DO, Kathleen Nuclear Stress Test/Stress On: 21-Jul-2013 Intent SPECT/AdenosineBy: Azra JEAN-BAPTISTE, Comments: needs adenosine - bc 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 Veronica Jurado DO Echo CompleteBy: Veronica Oquendo DO On: 21-Jul-2013 Intent Veronica Oquendo DO Spirometry (33291)By: Azra JEAN-BAPTISTE On: 21-Jul-2013 Intent Veronica Jurado DO Comments: mild obstruction EKG (48978)By: Veronica Oquendo DO On: 21-Jul-2013 Intent Veronica Oquendo DO Comments: nsr no acute chg - t wave inversion ant septal leads - st depression in lateral precordial leads BBMM-MB-VIGG BEHAVIORAL COUNSELING On: 21-Jul-2013 Intent FOR OBESITY, 15 MINUTES (G0447)By: Veronica Oquendo DO, DO, Kathleen Radiology - Knee - RightBy: Azra On: 21-Jul-2013 Veronica Pabon DO, DO, Kathleen Radiology - Knee - LeftBy: Azra On: 21-Jul-2013 Veronica Pabon DO, DO, Kathleen Eprescribed prescriptions (G8553)By: On: 21-Jul-2013 Intent Sania Ritchie Eprescribed prescriptions (G8553)By: On: 08-Jul-2013 Intent Veronica Oquendo DO, DO, Kathleen Solu -Medrol Injection, 125 mg On: 03-Jun-2013 Intent (J2930)By: Kassandra Fortune CNP Comments: Lot: [id number]: 12/2015Amt: 125mgRoute: IMSite: RUOQ glutealGiven by: CHONG Canas EKG (52649)By: Veronica Oquendo DO On: 11-Apr-2013 Intent Veronica Oquendo DO Comments: nsr no acute chg the same nonspecific st flattening in v1v2 are presnet on old ekg's Spirometry (27103)By: Azra JEAN-BAPTISTE, On: 11-Apr-2013 Intent Veronica Jurado DO Comments: such poor technique cnt report a FEV Eprescribed prescriptions (G8553)By: On: 16-Sep-2012 Intent Kelsea Richards LPN FLU VAC, SPLIT, >3 YEARS, INTRAMUSC On: 02-Sep-2012 Intent ([id number])By: Veronica Oquendo DO Comments: Lot #[id number]/30/13Site-left deltoidgiven by: CHONG Patrick DO, Kathleen ADMINISTRATION OF INFLUENZA VIRUS On: 02-Sep-2012 Intent VACCINE (G0008)By: Veronica Oquendo DO, DO, Kathleen DDEK-WX-SROJ BEHAVIORAL COUNSELING On: 02-Sep-2012 Intent FOR OBESITY, 15 MINUTES (G0447)By: Veronica Oquendo DO, DO, Kathleen SPECIMEN HNDLNG/TRNSPRT, OFFC > LAB On: 04-Aug-2012 Intent (56282)By: Suki Gutiérrez LPN MAMMOGRAM, SCREENING, BOTH BREASTS On: 28-Jul-2012 Intent ([id number])By: Veronica Oquendo DO, DO, Kathleen EKG (50679)By: Veronica Oquendo DO On: 17-Jun-2012 Intent Veronica Oquendo DO Comments: nsr no acute chg Overnight Pulse Ox(48414)By: Mast On: 11-May-2012 Intent Suzy RUIZ Spirometry (25762)By: Azra JEAN-BAPTISTE, On: 17-Mar-2012 Intent Veronica Jurado DO Comments: poor technique- stable -- FLU VAC, SPLIT, >3 YEARS, INTRAMUSC On: 01-Sep-2011 Intent (96225)By: Kelsea Richards LPN Comments: given at health clinic not here Eprescribed prescriptions (G8553)By: On: 29-Jul-2011 Intent Kelsea Richards LPN Ultrasound - RenalBy: Devika HEALTH INFORMATION ADMINISTRATOR, On: 15-Jul-2011 Intent Dasia PNEUM VAC ADLT/IMUMNOSPR, SBC/INTRM On: 09-May-2011 Intent ([id number])By: Veronica Oquendo DO, DO, Kathleen IMMUNIZ ADMNIN, 1 VAC, SNGL/COMBO On: 09-May-2011 Intent (05875)By: Veronica Oquendo DO, DO, Kathleen DXA, BONE DENSITY, AXIAL SKELETON On: 09-May-2011 Intent (78044)By: Kelsea Richards LPN MAMMOGRAM, SCREENING, BOTH BREASTS On: 09-May-2011 Intent ([id number])By: Kelsea Richards LPN Clinical Breast Examination On: 09-May-2011 Intent (G0101)By: Kelsea Richards LPN TDAP VACCINE >7 IM (96596)By: Azra On: 16-Apr-2011 Intent Veronica JEAN-BAPTISTE DO, Kathleen Comments: Lot #[id number]/24/13Site-right deltoidgiven by: Alisa Vee LPN PULMONARY STRESS TEST/SIMPLE On: 04-Mar-2011 Intent (09596)By: Veronica Oquendo DO Comments: pt unable to complete fulol test due to shortess of breath. Pt completed 3 minutes of assessment. hh Veronica Oquendo DO EKG (12841)By: Veronica Oquendo DO On: 03-Mar-2011 Intent Veronica Oquendo DO Comments: nsr no acute changes Pulse Oximetry (58247)By: Devika LUU, On: 29-Jan-2011 Intent Kassandra Vargas Solu- Medrol Injection, 125mg On: 29-Jan-2011 Intent (J2930)By: Kassandra Fortune CNP Pulse Oximetry (73005)By: Bernardo RN, On: 29-Jan-2011 Intent Suzy IMMUNIZ ADMNIN, 1 VAC, SNGL/COMBO On: 04-Sep-2010 Intent (34519)By: Lisa Blood FLU VAC, SPLIT, >3 YEARS, INTRAMUSC On: 04-Sep-2010 Intent (38053)By: Lisa Blood Comments: Lot:[id number]:02/2011Dose:0.5MLRoute:IMSite:left deltoidGiven by: VALENTINA Saleem CT - Chest (IV Contrast Needed)By: On: 20-Jun-2010 Intent Veronica Oquendo DO, DO, Kathleen Echo CompleteBy: Veronica Oquendo DO On: 20-Jun-2010 Intent Veronica Oquendo DO Radiology - ChestBy: Kassandra Fortune CNP On: 27-May-2010 Intent E Aerosol Treatment (21620)By: Devika On: 27-May-2010 Intent Kassandra LUU Pulse Oximetry (67428)By: Devika LUU On: 27-May-2010 Intent Kassandra Vargas Ultrasound - LiverBy: Azra JEAN-BAPTISTE, On: 07-Mar-2010 Intent Veronica Jurado DO Spirometry (99337)By: Azra JEAN-BAPTISTE On: 07-Mar-2010 Intent Veronica Jurado DO Comments: mild obstrucition EKG (13533)By: Veronica Oquendo DO On: 14-Dec-2009 Intent Veronica Oquendo DO Comments: nsr poor R wave progression-- will request old ekg to compare Spirometry (62752)By: Azra JEAN-BAPTISTE On: 14-Dec-2009 Intent Veronica Jurado DO Comments: mild obstructive disease but some technique off Planned Medications INFUSION, NORMAL SALINE SOLUTION , 1000 CC Ordered: 14-Jul-2017 Pending Ciesa HEALTH INFORMATION ADMINISTRATOR, Dasia INJECTION, KETOROLAC TROMETHAMINE, PER 15 MG Ordered: 12-May-2014 Pending Ciesa HEALTH INFORMATION ADMINISTRATOR, Dasia INJECTION, KETOROLAC TROMETHAMINE, PER 15 MG Ordered: 04-Jul-2016 Pending Ciesa HEALTH INFORMATION ADMINISTRATOR, Dasia INJECTION, METHYLPREDNISOLONE SODIUM SUCCINATE, UP TO 125 MG Ordered: 29-Jan-2011 Pending Ciesa HEALTH INFORMATION ADMINISTRATOR, Dasia INJECTION, METHYLPREDNISOLONE SODIUM SUCCINATE, UP TO 125 MG Ordered: 25-Nov-2017 Pending Azra DOVeronica Azra DO, Veronica INJECTION, [...] TO 125 MG Ordered: 13-Aug-2016 Pending Ciesa HEALTH INFORMATION ADMINISTRATOR, Dasia INJECTION, METHYLPREDNISOLONE SODIUM SUCCINATE, UP TO 125 MG Ordered: 12-May-2016 Pending Azra DO, Veronica Azra DO, Veronica INJECTION, METHYLPREDNISOLONE SODIUM SUCCINATE, UP TO 125 MG Ordered: 03-Aug-2015 Pending Veronica Oquendo DO, DO, Kathleen INJECTION, METHYLPREDNISOLONE SODIUM SUCCINATE, UP TO 125 MG Ordered: 03-Aug-2013 Pending Veronica Oquendo DO DO, Veronica INJECTION, METHYLPREDNISOLONE SODIUM SUCCINATE, UP TO 125 MG Ordered: 03-Jun-2013 Pending Ciesa HEALTH INFORMATION ADMINISTRATOR, Dasia INJECTION, METHYLPREDNISOLONE SODIUM SUCCINATE, UP TO 125 MG Ordered: 01-Jan-2018 Pending Veronica Oquendo DO, DO, Veronica INJECTION, METHYLPREDNISOLONE SODIUM SUCCINATE, UP TO 125 MG Ordered: 18-Aug-2018 Pending Ciesa HEALTH INFORMATION ADMINISTRATOR, Dasia INJECTION, TRIAMCINOLONE ACETONIDE, NOT OTHERWISE SPECIFIED, 10 MG Ordered: 21-Jul-2013 Pending Veronica Oquendo DO, DO, Kathleen Instructions Name Dates Details Diabetic autonomic neuropathy [...] foot : DISCONTINUED - RENAL FUNCTION PANEL (30246) Indication: Gout of right foot Gout of right foot : DISCONTINUED - URIC ACID BLOOD (60334) Indication: Gout of right foot Hypertension with renal disease : DISCONTINUED - MAGNESIUM (78593) Indication: Hypertension with renal disease Hypertension with renal disease : DISCONTINUED - POTASSIUM SERUM (96473) Indication: Hypertension with renal disease Diarrhea : [...] type II, controlled Encounters Office Visit On: 08-Nov-2018 8:21 Encounter Reason: [...] completed the followi ng preventative measures: mammography (2017) and colonoscopy (2017). The patient does have durable power of managing attorney and living will. The patient has noticed nothing from the geriatic depression scale. Other providers contributing to the patient's care are verify rep, stringed instrument assembler, home attendant and other:.Encounter Diagnosis: BMI 38.0-38.9,adult, Nonsmoker, Annual [...] The patient does have durable power of managing attorney and livin g will. The patient has noticed lack of energy. Other providers contributing to the patient's care are gastrologist, home attendant and other: (pain management, podiatry).Encounter Diagnosis: Body [...] completed the foll owing preventative measures: mammography (2015) and colonoscopy (2015). The patient does not have durable power of managing attorney or living will. The patient has noticed nothing from the geriatic [facility] s angelica. Other providers contributing to the patient's care are home attendant and other:.Encounter Diagnosis: Annual Medicare Phyiscal WITHOUT [...] patient does not have durable power of managing attorney or living will. The patient has [...] care from a hospital (inhaled hamburger and [place] rice and she was in hosp from [...] providers contributing to the patient's care are stringed instrument assembler (margaret saravia), home attendant (dr. hayes) and other: (dr. zincdr. leedr. [...] providers contributing to the patient's care are stringed instrument assembler (sayleah has an appt with Dr Hammer this month [facility] gastrologist (Michele), home attendant (Dr Hayes) and urologist (Dr Mayes).Encounter Diagnosis: [...] Follow up, Laboratory Test Results - Date: (6/23/10). Encounter Diagnosis: PNEUMONITIS DUE TO FOOD/VOMIT INHALATION [...] Payers MedicareTRICARE FOR LIFE, WPS/MCARE CROSSOVERMedicareRusophia Ling; devin guarantor
--- OUTSIDE RECORDS SUMMARY | 2018-12-08 05:29 | XMS RPT_ITS | Continuity of Care Document ---
:1950 Author Organization [facility] Address [address] [facility] [address] [place] [address] Phone Care Team Providers Name Role Phone Veronica Oquendo DO Unavailable Octavio Delgado Unavailable Nghia Bautista MD Unavailable Lobito Kauffman DO Unavailable Derrell Palumbo Unavailable Unavailable Messenger, AUDIT DIRECTOR Kelsea Unavailable Unavailable Stephanie Rodriguez Unavailable Unavailable [...] occurred s/p surgery - saw cardio [place] had stress test and it was normal [...] after 2weeksdriving to see Dr Ribeiro in [place] Status: Active CHRONIC OBSTRUCTIVE ASTHMA WITH (ACUTE) [...] DO, DO, Kathleen Start : 25-Aug-2018 Active [place] 5-325 MG Oral Tablet 1 (one) Tablet [...] DO, Kathleen Start : 25-Aug-2018 Active [place] /16 31G X 5 MM Miscellaneous 1 [...] End : 10-Apr-2016 Inactive VITAMIN D (ERGOCALCIFEROL), [id number] (Oral Capsule) 1 (one) Capsule daily for [...] Discontinued Comments:Dispense mini needles CALCIUM + D, [phone] (PO Cap) 2 qd for 0 days [...] 3 Views Result: Comments: See Note; NOTES: [facility] Imaging Services [address] [place] [address] Lumbar Spine 2 or 3 Views MR#: [id number] Acct: [id number] Name: SUGEY LING Rep #: [id number] : 1950 F 67 From: Dwight Choudhury DO PCP: Veronica Oquendo DO Status: REG CLI Study: Lumbar Spine 2 or 3 Views Date of Exam: 10/26/18 Exam# [id number] Ordering Dr: Chetan Medina MD STUDY: X-RA [...] CC: Chetan Medina MD; Veronica Oquendo DO Manager Nc: Signed 22-May-2018 Orthopedic Visit Report Result: Comments: See Note; NOTES: [facility] Orthopaedics AND Sports Medicine [address] [place] [address] OFFICE VISIT Date of Service: 05/11/18 MR#: [id number] Acct: [id number] Name: SUGEY LING Rep #: [id number] : 1950 Provider: Tia Chirinos MD Age/Sex: 67/F Location: [facility] Status: Signed Intake Intake Visit Reasons: LOW [...] [History Confirmed 01/07/18] Fluticasone 0.05% [Flonase Nasal Moosic] 1 spray NASAL DAILY 06/21/17 [History Confirmed 01/07/18] Fluticasone/Salmeterol [Advair 500/50 Mcg Diskus] 1 puff INHALATION BID 06/21/17 [History Confirmed 01/08/18] Furosemide [Lasix] 40 mg PO DAILY PRN PRN 06/21/17 [History Confirmed 01/07/18] Insulin Detemir [Levemir (BKC)] 24 units SC QHS 06/21/17 [History Con firmed 01/08/18] Herkimer-3S/Dha/Epa/Fish Oil [Fish Oil 1,200 mg Softgel] 1 ea PO DAILY 06/21/17 [History Confirmed 01/07/18] Pantoprazole Sodium [Protonix] 40 mg PO BID 06/21/17 [History Confirmed 8] Tiotropium Andrews [Spiriva Respimat] 2 puff IH DAILY 06/21/17 [...] nothin g. 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 mandolin repairer who would not clear her for a [...] (CAD), BILAT Result: Comments: See Note; NOTES: [facility] Imaging Services [address] [place] [address] SCREENING MAMM (CAD), BILAT MR#: [id number] Acct: [id number] Name: SUGEY LING Rep #: [id number] : 1950 F 67 From: Anam Larios MD PCP: Veronica Oquendo DO Status: [facility] Study: SCREENING MAMM (CAD), BILAT Date of Exam: 05/20/18 Exam# [id number] Ordering Dr: Veronica Oquendo MAMMOGRAPHY - BILATERAL [...] delay biopsy of a clinically suspicious abnormality. [id number] Electronically Signed: Anam Larios MD at 7:57 EDT Tel [phone], Service jolly pport , CC: Veronica Oquendo DO Manager Nc: Signed 29-Jan-2018 Modified Barium Swallow Study Result: Comments: See Note; NOTES: [facility] Speech Pathology [address] [address] Modified Barium Swallow Study MR#: [id number] Acct: [id number] Name: SUGEY LING Rep #: [id number] : 1950 67 From: Eliezer Duke M.A., CFY-SNUFF BOX FINISHER PRIMARY / SECONDARY DIAGNOSIS: dysphagia (R13.10) REFERRING [...] Patien t inhaled pieces of hamburger and Lithuanian rice. 04/26/2014 underwent bronchoscopy with bronchial lavage and foreign body removal after aspirating rice during intake of hamburger and Lithuanian rice. 2017 CT/Chest revealed old granulomatous disease; no acute pulmonary abnormality; resolution of the right lower lobe infiltrate seen on the prior CT. 12/31/2017 CXR revealed cardiomegaly; pectus excavat um deformity; no acute abnormality is seen. 01/08/2018 underwent bronchoscopy with bronchial lavage and foreign body removal after aspirating rice during intake of Yi food with resulting pneumoniti s of both food and emesis with bronchospasm, documentation reveals history of esophageal strictures with plans for milieu therapist referral for possible esophageal dilatation. Patient reports [...] Thin liquids via cup (single sip): 1 Norvelt thickened liquids via cup (single sip) : 1 [place] thickened liquids via cup (single sip): 2 [place] thickened liquids via cup (single sip): 1 [...] l functioning, with workup currently underway via milieu therapist. Patient able to comprehend and express recommended [...] 1520 <Electronically signed by Eliezer Duke M.A., CFY-SNUFF BOX FINISHER> Date Eliezer Duke M.A. CFY-SNUFF BOX FINISHER Co-Signature Required for all Medicare patients Date/Time Co-Signature CC: 29-Jan-2018 Swallowing Function w/Video Result: Comments: See Note; NOTES: [facility] Imaging Services [address] [place] [address] Swallowing Function w/Video MR#: [id number] Acct: [id number] Name: SUGEY LING Rep #: [id number] : 1950 F 67 From: Anam Larios MD PCP: Veronica Oquendo DO Status: REG CL Study: Swallowing Function w/Video Date of Exam: 01/29/18 Exam# [id number] Ordering Dr: Isaías Stroud MD STUDY: SWALLOWING [...] Anam Larios MD at 14:25 EST Tel [phone], Service support , CC: Veronica Stroud Manager Nc: Signed 30-Dec-2017 Chest PA and Lateral Result: Comments: See Note; NOTES: [facility] Imaging Services [address] [place] [address] Chest PA and Lateral MR#: [id number] Acct: [id number] Name: SUGEY LING Rep #: [id number] : 1950 F 67 From: Anam Larios MD PCP: Veronica Oquendo DO Status: REG CLI Study: Chest PA and Lateral Date of Exam: 12/30/17 Exam# [id number] Ordering Dr: Octavio Delgado MD STUDY: X- [...] Anam Larios MD at 12:54 EST Tel [phone], Service support , CC: Veronica Oquendo DO; Octavio Delgado MD Manager Nc: Signed 22-Dec-2017 Chest PA and Lateral Result: Comments: See Note; NOTES: [facility] Imaging Services [address] [place] [address] Chest PA and Lateral MR#: [id number] Acct: [id number] Name: SUGEY LING Rep #: [id number] : 1950 F 67 From: Ronnie Bradford MD PCP: Veronica Oquendo DO Status: REG CLI Study: Chest PA and Lateral Date of Exam: 12/22/17 Exam# [id number] Ordering Dr: Kelsea Lund WOOD CUTTER-C STUDY: X-RAY C HEST REASON FOR EXAM: [...] , CC: NAKIA Lund; Veronica Oquendo DO Manager Nc: Signed 04-Dec-2017 Chest without Contrast Result: Comments: See Note; NOTES: [facility] Imaging Services [address] [place] [address] Chest without Contrast MR#: [id number] Acct: [id number] Name: SUGEY LING Rep #: [id number] : 1950 F 67 From: Rogelio Alston DO PCP: Veronica Oquendo DO Status: REG CLI Study: Chest without Contrast Date of Exam: 12/04/17 Exam# [id number] Ordering Dr: Octavio Delgado MD STUDY: CT [...] Rogelio Alston DO at 13:14 EST Tel [phone], Service support , CC: Veronica Oquendo DO; Octavio Delgado MD Manager Nc: Signed 17-Nov-2017 Emergency Department Summary Result: Comments: See Note; NOTES: [facility] Medical Records Department [address] [place] [address] Emergency Department Summary 11/16/17 1811 MR#: [id number] Acct: [id number] Name: SUGEY LING Rep #: [id number] : 1950 66 From: Lobito Lee MD [...] a prednisone taper and sees a pul cco. I believe that she should continue her [...] Aspiration event This note was generated with [employer] dictation software. It may contain incorrect words, [...] your Primary Care Provider. Call [facility] ([phone]) or report to the closest Emergency Room. Call 911 if necessary. 11/17/17 0054 <Electronically signed by Lobito Lee MD> Date Lobito Lee MD Cosigner Signature (If Indicated): Date CC: Veronica Oquendo DO 16-Nov-2017 Chest PA and Lateral Result: Comments: See Note; NOTES: [facility] Imaging Services [address] [place] [address] Chest PA and Lateral MR#: [id number] Acct: [id number] Name: SUGEY LING Devin Rep #: [id number] : 1950 F 66 From: Ivone Guevara MD PCP: Veronica Oquendo DO Status: [facility] ER Study: Chest PA and Lateral Date of Exam: 11/16/17 Exam# [id number] Ordering Dr: Lobito Lee MD STUDY: X-RAY [...] Fax CC: Veronica Oquendo DO; Lobito Lee Manager Nc: Signed 09-Oct-2017 Chest PA and Lateral Result: Comments: See Note; NOTES: [facility] Imaging Services [address] [place] [address] Chest PA and Lateral MR#: [id number] Acct: [id number] Name: SUGEY LING Rep #: [id number] : 1950 F 66 From: Anam Larios MD PCP: Veronica Oquendo DO Status: [facility] CLI Study: Chest PA and Lateral Date of Exam: 10/09/17 Exam# [id number] Ordering Dr: Will Oliveira MD STUDY: X-RAY [...] Anam Larios MD at 15:14 EST Tel [phone], Service support , CC: Veronica Oquendo DO; Will Oliveira MD Manager Nc: Signed 15-Jul-2017 PT D/C Summary (1) Result: Comments: See Note; NOTES: [facility] Physical Therapy [facility] [address] [place] [address]. [address] [place] [phone] Fax REHABILITATION SERVICES [facility] SUMMARY MR#: [id number] Acct: [id number] Name: SUGEY LING Rep #: [id number] : 1950 66 From: Nghia Willis PT, Cert. MDT, OCS Referring Dr.: Chetan Medina MD Status: REG RCR [facility] [employer] HP - PT D/C Summary [...] feel free to yamilka l me at [phone]. Thank you for the referral of this patient. Sincerely, Nghia Willis, PT, <Electronically signed by Nghia Willis PT, Cert. MDT, OCS> 07/15/17816 CC: Chetan Medina MD; Veronica Oquendo DO WENCESLAO Signed 11-Jul-2017 Emergency Department Summary Result: Comments: See Note; NOTES: [facility] Medical Records Department [address] [place] [address] Emergency Department Summary 06/21/17 0738 MR#: [id number] Acct: [id number] Name: SUGEY LING Rep #: [id number] : 1950 66 From: Rufino Vela MD [...] ED Arthritis Gout Prescriptions: Hydrocodone Bitart/Apap 5-325 [[place] 5/325] 1 - 2 tablet PO Q4H PRN PRN #7 tablet PRN Reason: Pain Referrals: Veronica Oquendo, DO [Primary Care Provider] - What to do if you have Problems For any increased pain, shortness of breath, bleeding, na usea or vomiting, chest pain, or any unexpected problems, contact your Primary Care Provider. Call [employer] [facility] ([phone]) or report to the closest Emergency Room. Call 911 if necessary. 07/11 0903 <Electronically signed by Rufino Vela MD> Date Rufino Vela MD Cosigner Signature (If Indicated): Date ___ CC: Veronica Oquendo DO 21-Jun-2017 Discharge Instruction Result: Comments: See Note; NOTES: [facility] Medical Records Department [address] [place] [address] Discharge Instruction 06/21/17739 MR#: [id number] Acct: [id number] Name: Sissy LING NYLou A Rep #: [id number] : 1950 66 From: Rufino Vela MD PCP: Veronica Oquendo DO Status: REG ER ED Disposition - Plan for ED Patient: Chief Complaint: Lower Extremity Injury Instruction s: ED Arthritis Gout Prescriptions: Hydrocodone Bitart/Apap 5-325 [[place] 5/325] 1 - 2 tablet PO Q4H [...] PT (1) Result: Comments: See Note; NOTES: [facility] Physical Therapy [facility] [address] [place] [address] Fax REEVALUATION / MEDICARE [facility] 4d PHYSICAL THERAPY MR#: [id number] Acct: [id number] Name: SUGEY LING Rep #: [id number] : 1950 66 From: Nghia Willis PT, [...] do not hesitate to contact me at [phone] by phone or if you have questions or concerns regarding this new plan of care! Sincerely, Nghia Willis PT, <Electronically signed by Nghia Willis PT, Cert. T, [facility]> 06/19/17 1533 CC: Chetan Medina MD; Veronica flowers DO WENCESLAO Signed For Medicare only, by signing this I certify the plan of care. Physicians Signature Date 09-Jun-2017 L/S Spine Comp/w Bending Views Result: Comments: See Note; NOTES: [facility] Imaging Services [address] [place] [address] Ver[place]ana 4d L/S Spine Comp/w Bending Views MR#: [id number] Acct: [id number] Name: DAVE LING Rep #: [id number] : 1950 F 66 From: Ronnie Bradford MD PCP: Veronica Oquendo DO Status: REG CLI Study: L/S Spine Comp/w Bending Views Date of Exam: 06/09/17 Exam# [id number] Ordering Dr: Alicia Chirinos MD STUDY: X-RAY [...] CC: Tia Chirinos M.D.; Veronica Oquendo DO Manager Nc: Signed 26-May-2017 Re-Evaluation - PT (1) Result: Comments: See Note; NOTES: [facility] Physical Therapy [facility] [address] [place] [address]. [address] [place] [address] Fax [facility] 4d PHYSICAL THERAPY MR#: [id number] Acct: [id number] Name: HORTENSIASUGEY Devin Rep #: [id number] : 1950 66 From: Nghia Willis PT, [...] do not hesitate to contact me at [phone] by phone or if you have questions [...] Study (HP) Result: Comments: See Note; NOTES: [facility] Imaging Services [address] [place] [address] Verdat[place] 4d Dexa Bone Density Study (HP) MR#: [id number] Acct: [id number] Name: SUGEY LING Rep #: [id number] : 1950 F 66 From: Anam Larios MD PCP: Azra DO,Veronica Status: REG CLI Study: Dexa Bone Density Study (HP) Date of Exam: 05/12/17 Exam# [id number] Ordering Dr: Veronica Bridges DO STUDY: DUAL [...] Anam Larios MD at 12:45 EDT Tel [phone], Service support , CC: Veronica Oquendo DO Manager Nc: Signed 12-May-2017 SCREENING MAMM (CAD), BILAT Result: Comments: See Note; NOTES: [facility] Imaging Services [address] [place] [address] Ver[place] 4d SCREENING MAMM (CAD), BILAT MR#: [id number] Acct: [id number] Name: SUGEY LING Rep #: [id number] : 1950 F 66 From: Royce Phipps MD PCP: Veronica Oquendo DO Status: REG CLI Study: SCREENING MAMM (CAD), BILAT Date of Exam: 05/12/17 Exam# [id number] Ordering Dr: Bren Oquendo DO MAMMOGRAPHY - [...] delay biopsy of a clinically suspicious abnormality. [id number] Electronically Signed: Royce Phipps MD at 13:24 EDT Tel , Service support [phone], CC: Veronica Oquendo DO Manager Nc: Signed 30-Apr-2017 Inital Evaluation (1) - PT Result: Comments: See Note; NOTES: [facility] Physical Therapy [address] [place], [place] [address] Fax REHABILITATION SERVICES INITIAL EVALUATION MR#: [id number] Acct: [id number] Name: SUGEY LING Rep #: [id number] [...] bowel/bladder problems. Physical therapy went well in [place], she was able to walk again. Social: [...] to be FAXED BACK to us at [phone] for Medicare purposes. Please let me know if there are questions or concerns rega rding this plan of care. Physician Signature: Date: <Electronically signed by Nghia Willis PT, Cert. T, OCS> 04/30/17 9021 CC: Chetan Medina MD; Veronica Oquendo DO KERRIA Signed For Medicare only, by signing this I certify the plan of care. Physicians Signature Date 24-Apr-2017 Spine Lumbar (Routine) Result: Comments: See Note; NOTES: [facility] Imaging Services [address] [place] [address] [facility] 4d Spine Lumbar (Routine) MR#: [id number] Acct: [id number] Name: SUGEY LING Rep #: [id number] : 1950 F 66 From: Ronnie Bradford MD PCP: Veronica Oquendo DO Status: REG CLI Study: Spine Lumbar (Routine) Date of Exam: 04/24/17 Exam# [id number] Ordering Dr: Chetan Medina MD [facility] LUMBAR SPINE WITHOUT CONTRAST REASON FOR [...] CC: Chetan Medina MD; Veronica Oquendo DO Manager Nc: Signed 15-Apr-2017 Hips B/L min 2 views w/ Pelvis Result: Comments: See Note; NOTES: [facility] Imaging Services [address] [place] [address] [place] 4d Hips B/L min 2 views w/ Pelvis MR#: [id number] Acct: [id number] Name: DAVE LING Rep #: [id number] : 1950 F 66 From: Jeremiah Ramos MD PCP: Veronica Oquendo DO Status: REG CLI Study: Hips B/L min 2 views w/ Pelvis Date of Exam: 04/15/17 Exam# [id number] Ordering Dr: Chetan Hubbard MD STUDY: X-RAY [...] CC: Chetan Medina MD; Veronica Oquendo DO Manager Nc: Signed 16-Jul-2016 Spirometry (36160) Result: 16-Jul-2016 ELECTROCARDIOGRAM, COMPLETE (ECG) (82604) Comments: no new chg cmpared to last ekg Result: [MEASUREMENTS ANALYSIS] Date of Test: 07/16/2016 11:05:02; Heart Rate: 69; MO Interval: 144; QRS: 104; QT Interval: 394; Corrected QT Interval (QTc): 409; P Wave [place]: 56; QRS Wave [place]: 55; T Wave [place] : 90; Blood Pressure: 122/78 [ECG DIAGNOSTIC STATEMENTS] Date of Test: 07/16/2016 11:05:02; Summary: Sinus Rhythm Low voltage in limb leads. - Negative T- waves -Possible Anterior ischemia. ABNORMAL 04-Jul-2016 Knee 4 or More Views Result: Comments: See Note; NOTES: [facility] Imaging Services [address] [place] [address] [place] 4d Knee 4 or More Views MR#: [id number] Acct: [id number] Name: SUGEY LING Rep # : [id number] : 1950 F 65 From: Ivone Guevara MD PCP: Veronica Oquendo DO Status: REG CLI Study: Knee 4 or More Views Date of Exam: 07/04/16 Exam# [id number] Ordering Dr: Kassandra Fortune STUDY: X-RAY - [...] at 16:23 EDT Tel , Service support [phone], CC: Kassandra Fortune; Veronica Oquendo DO Manager Nc: Signed 03-Jun-2016 Emergency Department Summary Result: Comments: See Note; NOTES: [facility] Medical Records Department [address] [place] [address] Emergency Department Summary MR#: [id number] Acct: [id number] Name: SUGEY LING Rep #: [id number] : 1950 65 From: Ronaldo Verduzco MD [...] C: Veronica Reeder MD T: NTS JOB: [id number] 06/03/16 1307 <Electronically signed by Ronaldo Verduzco MD> Date Ronaldo Verduzco MD Cosigner Signature (If Indicated): Date CC: Veronica Oquendo DO; Will Oliveira MD Date Dictated: 06/03/16 1232 Date Transcribed: 06/03/16 123 Manager Nc: Signed 03-Jun-2016 Discharge Instruction Result: Comments: See Note; NOTES: [facility] Medical Records Department [address] [place] [address] Discharge Instruction 06/03/16 1230 MR#: [id number] Acct: [id number] Name: SUGEY LING Rep #: [id number] : 1950 65 From: Ronaldo Verduzco MD PCP: Veronica Oquendo DO Status: REG ER ED Disposition - Plan for ED Patient: Disposition: Home or Assisted Living [facility] Complaint: Fall Instructions: ED Fracture, [...] problems, contact your doctor. Call [facility] ([phone]) or report to the closest Emergency Room. Call 911 if necessary. 06/03/16 1234 <El ectronically signed by Ronaldo Verduzco MD> Date Ronaldo Verduzco MD Cosigner Signature (If Indicated): Date CC: Veronica Oquendo DO 03-Jun-2016 Shoulder min 2 Views Result: Comments: See Note; NOTES: [facility] Imaging Services [address] [place] [address] [place] 4d Shoulder min 2 Views MR#: [id number] Acct: [id number] Name: SUGEY LING Rep #: [id number] : 1950 F 65 From: Anam Larios MD PCP: Veronica Oquendo DO Status: REG ER Study: Shoulder min 2 Views Date of Exam: 06/03/16 Exam# [id number] Ordering Dr: Ronaldo Verduzco MD STUDY: X-RAY [...] Anam Larios MD at 12:42 EDT Tel [phone], Service support [phone], RAD/Shoulder min 2 Views IMPRESSION: I suspect a nondisplaced impacted fracture of the surgical neck of the humerus. Electronically Signed: Anam rinaldi MD at 12:42 EDT Tel [phone], Service support [phone], CC: Veronica Oquendo DO; Ronaldo Verduzco MD Manager Nc: Signed 13-May-2016 L/S Spine Min 4 Views Result: Comments: See Note; NOTES: [facility] Imaging Services [address] [place] [address] [place] 4d L/S Spine Min 4 Views MR#: [id number] Acct: [id number] Name: SUGEY LING Rep #: [id number] : 1950 F 65 From: Anam Larios MD PCP: Veronica Oquendo DO Status: REG CLI Study: L/S Spine Min 4 Views Date of Exam: 05/13/16 Exam# [id number] Ordering Dr: Chetan Luo MD STUDY: X-RAY [...] Anam Larios MD at 8:31 EDT Tel [phone], Service support [phone], RAD/L/S Spine Min 4 Views IMPRESSION: Status post laminectomy and fusion at the L4-L5 and L5-S1 levels with prosthetic disc insertion. Grade 2 anterior listhesis of L5 on S1. Electron ically Signed: Anam Larios MD at 8:31 EDT Tel [phone], Service support [phone], CC: Chetan Medina MD; Veronica Oquendo DO Manager Nc: Signed 13-May-2016 Chest WITH Contrast Result: Comments: See Note; NOTES: [facility] Imaging Services [address] [place] [address] [place] 4d Chest WITH Contrast MR#: [id number] Acct: [id number] Name: [facility]issy [facility] Rep #: [id number] : 1950 F 65 From: Anam Larios MD PCP: Veronica Oquendo DO Status: REG CLI Study: Chest WITH Contrast Date of Exam: 05/13/16 Exam# [id number] Ordering Dr: Veronica Oquendo DO STUDY: CT [...] Anam Larios MD at 8:42 EDT Tel [phone], Service support , CC: Veronica Oquendo DO Manager Nc: Signed 09-May-2016 Bilat Scrn Digital AND CAD Result: Comments: See Note; NOTES: [facility] Imaging Services [address] [place] [address] [place] 4d Bilat Scrn Digital AND CAD MR#: [id number] Acct: [id number] Name: HORTENSIASUGEY Devin Rep #: [id number] : 1950 F 65 From: Anam Larios MD PCP: Veronica Oquendo DO Status: REG CLI Study: Bilat Scrn Digital AND CAD Date of Exam: 05/09/16 Exam# [id number] Order ing Dr: Veronica Oquendo DO MAMMOGRAPHY [...] delay biopsy of a clinically suspicious abnormality. [id number] Electronically Signed: Anam Larios MD at 10:46 EDT Tel [phone], rvice support [phone], CC: Veronica Oquendo DO Manager Nc: Signed 09-May-2016 Chest PA and Lateral Result: Comments: See Note; NOTES: [facility] Imaging Services [address] [place] [address] [place] 4d Chest PA and Lateral MR#: [id number] Acct: [id number] Name: SUGEY LING Rep #: [id number] : 1950 F 65 From: Anam Larios MD PCP: Veronica Oquendo DO Status: [facility] CLI Study: Chest PA and Lateral Date of Exam: 05/09/16 Exam# [id number] Ordering Dr: Veronica Davidson DO STUDY: X-RAY [...] Anam Larios MD at 9:41 EDT Tel [phone], Service support [phone], RAD/Chest PA and Lateral IMPRESSION: Focal area of increased markings in the right midlung. Followup is recommended. Electronically Signed: Anam Larios MD at 9:41 EDT Tel [phone], Service support [phone], CC: Veronica Oquendo DO Manager Nc: Signed 15-Apr-2016 Knee 4 or More Views Result: Comments: See Note; NOTES: [facility] Imaging Services [address] [place] [address] [place] 4d Knee 4 or More Views MR#: [id number] Acct: [id number] Name: SUGEY LING Rep #: [id number] : 1950 F 65 From: Royce Phipps MD PCP: Veronica Oquendo DO Status: REG CLI Study: Knee 4 or More Views Date of Exam: 04/15/16 Exam# [id number] Ordering Dr: Tad Oquendo DO STUDY: X-RAY [...] 10:30 EDT Tel , Servic e support [phone], RAD/Knee 4 or More Views IMPRESSION: Degenerative arthrosis. Electronically Signed: Royce Phipps MD at 10:30 EDT Tel , Service support [phone], CC: Veronica Oquendo DO Manager Nc: Signed 15-Apr-2016 Knee 4 or More Views Result: Comments: See Note; NOTES: [facility] Imaging Services [address] [place] [address] [place] 4d Knee 4 or More Views MR#: [id number] Acct: [id number] Name: SUGEY LING Rep #: [id number] : 1950 F 65 From: Royce Phipps MD PCP: Veronica Oquendo DO Status: REG CLI Study: Knee 4 or More Views Date of Exam: 04/15/16 Exam# [id number] Ordering Dr: Tad Oquendo DO STUDY: X-RAY [...] 10:39 EDT Tel , Ser vice support [phone], RAD/Knee 4 or More Views IMPRESSION: Degenerative arthrosis. Electronically Signed: Royce Phipps MD at 10:39 EDT Te l , Service support [phone], CC: Veronica Oquendo DO Manager Nc: Signed 30-Jul-2015 Spirometry (26323) Result: 19-Jul-2015 Spirometry (04349) Comments: mild obstruction - asx Result: 08-May-2015 Bilat Scrn Digital AND CAD Result: Comments: See Note; NOTES: [facility] Imaging Services [address] [place] [address] Breast Imaging Report MR#: [id number] Acct: [id number] Name: SUGEY LING Rep #: [id number] : 1950 F 64 From: Anam Larios MD PCP: Veronica Oquendo DO Status: REG CLI Study: Bilat Scrn Digital AND CAD Date of Exam: 05/08/15 Exam# [id number] Ordering Dr: Pippa Oquendo DO MAMMOGRAPHY - [...] Jj Larios MD at 10:50 EDT Tel [phone], Service support [phone], CC: Veronica Oquendo DO Manager Nc: Signed 08-May-2015 Dexa Bone Density Study (HP) Result: Comments: See Note; NOTES: [facility] Services [address] [place] [address] Bone Density Report MR#: [id number] Acct: [id number] Name: SUGEY LING Rep #: [id number] : 1950 F 64 From: Anam Larios MD PCP: Veronica Oquendo DO Status: REG CLI Study: Dexa Bone Density Study () Date of Exam: 05/08/15 Exam# [id number] Ordering Dr: Pippa Oquendo DO STUDY: DUAL [...] Anam Larios MD at 15:32 EDT Tel [phone], Service support [phone], CC: Veronica Oquendo DO Manager Nc: Signed 27-Apr-2015 Chest PA and Lateral Result: Comments: See Note; NOTES: [facility] Services [address] [place] [address] Radiology Report MR#: [id number] Acct: [id number] Name: SUGEY LING Rep #: [id number] : 1950 F 64 From: Lilian Dominguez MD PCP: Veronica Oquendo DO Status: REG CLI Study: Chest PA and Lateral Date of Exam: 04/27/15 Exam# [id number] Ordering Dr: Veronica Oquendo DO STUDY : [...] MD at 22:33 EDT , Service support [phone], RAD/Chest PA and Lateral IMPRESSION: No acute cardiopulmonary findings or changes. Mild hyper expansion and stable mild chronic lung changes. Stigmata of prior granulomatous disease. Atherosclerosis. Demineralized osseous structures and dextroscoliosis. Electronically Signed: Lilian Dominguez MD at 22:33 EDT , Service support [phone], CC: Veronica Oquendo DO Manager Nc: Signed 31-May-2014 Foot min 3 Views Result: Comments: See Note; NOTES: [facility] [address] [place] [address] Radiology Report MR#: [id number] Acct: [id number] Name: SUGEY LING Rep #: [id number] : 1950 F 63 From: Celso Guerrero DO PCP: Veronica Oquendo DO Status: REG CLI Study: Foot min 3 Views Date of Exam: 05/31/14 Exam# [id number] Ordering Dr: Jade Benson MD STUDY: X-RAY [...] DO at 9:34 EDT , Service support [phone], CC: Veronica Oquendo DO; Jade Benson MD Manager Nc: Signed 31-May-2014 Foot min 3 Views Result: Comments: See Note; NOTES: [facility] [address] [place] [address] Radiology Report MR#: [id number] Acct: [id number] Name: SUGEY LING Rep #: [id number] : 1950 F 63 From: Celso Guerrero DO PCP: Veronica Oquendo DO Status: REG CLI Study: Foot min 3 Views Date of Exam: 05/31/14 Exam# [id number] Ordering Dr: Jade Benson MD STUDY: X-RAY [...] at 9:32 EDT Tel , Service support [phone], CC: Veronica Oquendo DO; Jade Benson MD Manager Nc: Signed 31-May-2014 Hand Min 3 Views Result: Comments: See Note; NOTES: [facility] [address] [place] [address] Radiology Report MR#: [id number] Acct: [id number] Name: SUGEY LING Rep #: [id number] : 1950 F 63 From: Celso Guerrero DO PCP: Veronica Oquendo DO Status: REG CLI Study: Hand Min 3 Views Date of Exam: 05/31/14 Exam# [id number] Ordering Dr: Jade Benson MD STUDY: X-RAY [...] DO at 9:42 EDT , Service support [phone], CC: Veronica Oquendo DO; Jade Benson MD Manager Nc: Signed 31-May-2014 Hand Min 3 Views Result: Comments: See Note; NOTES: [facility] Services [address] [place] [address] Radiology Report MR#: [id number] Acct: [id number] Name: SUGEY LING Rep #: [id number] : 1950 F 63 From: Celso Guerrero DO PCP: Veronica Oquendo DO Status: REG CLI Study: Hand Min 3 Views Date of Exam: 05/31/14 Exam# [id number] Ordering Dr: Jade Benson MD STUDY: X-RAY [...] at 9:43 EDT , Servic e support [phone], RAD/Hand Min 3 Views IMPRESSION: Osteopenia with degenerative changes. No acute fracture demonstrated. Electronically Signed: Ashok keith DO at 9:43 EDT , Service support [phone], CC: Veronica Oquendo DO; Jade Benson MD Manager Nc: Signed 19-May-2014 Chest PA and Lateral Result: Comments: See Note; NOTES: [facility] Imaging Services [address] [place], [place] [id number] Radiology Report MR#: [id number] Acct: [id number] Name: SUGEY LING Rep #: [id number] : 1950 F 63 From: Marciano Fountain MD PCP: Status: REG CLI Study: Chest PA and Lateral Date of Exam: 05/19/14 Exam# [id number] Ordering Dr: Veronica Oquendo DO STUDY: X-RAY [...] MD at 5:44 EDT , Service support [phone], CC: Veronica Oquendo DO Manager Nc: Signed 18-Apr-2014 EKG (30647) Comments: nsr no acute chg Result: [MEASUREMENTS ANALYSIS] Date of Test: 04/18/2014 09:33:28; Heart Rate: 72; MO Interval: 148; QRS: 108; QT Interval: 392; Corrected QT Interval (QTc): 413; P Wave [place]: 63; QRS Wave [place]: 59; T Wave [place] : 66; Blood Pressure: 138/62 [ECG DIAGNOSTIC STATEMENTS] Date of Test: 04/18/2014 09:33:28; Summary: Sinus Rhythm Low voltage in limb leads. - Negative precordial T-waves. ABNORMAL 16-Sep-2013 Bilat Scrn Digital & CAD Result: Comments: See Note; NOTES: [facility] [address] [place] [address] Breast Imaging Report MR#: [id number] Acct: [id number] Name: SUGEY LING Rep #: [id number] : 1950 F 62 From: Anam Larios MD PCP: Veronica Oquendo DO Status: REG CLI Exam# [id number] Ordering Dr: Veronica Oquendo DO MAMMOGRAPHY - [...] September 16, 2013 at 9:43:10 AM EDT [phone] Electronically Signed GP/GP If you are the referring physician and would like to consult with the radiologist who provided this interpretation, please contact Anam Webb i, M.D. at [phone]. If this radiologist is unavailable, you will be directed to another radiologist to assist. If you are a patient with a question regarding this report, please contact your re ferring physician directly. Professional Interpretation Provided By: [employer], Phone , These documents contain legally protected [...] of these documents. CC: Veronica Oquendo DO Manager Nc: Signed Family History Unknown Family Member Name [...] kg/m2 Body Surface Area Calculated 1.85 m2 68-Wze-071286:51 Temperature 98.4 f Comments: Method: Tympanic Respiration [...] Surface Area Calculated 1.86 m2 :39 Comments: [facility] and had a glaucoma test donehearing wnl [...] kg/m2 Body Surface Area Calculated 1.89 m2 37-Pqj-787950:17 Comments: [facility] and had a glaucoma test donehearing wn [...] kg/m2 Body Surface Area Calculated 1.9 m2 98-Hkn-341700:20 Comments: 138/70 2nd bp Pulse 96 /min [...] kg/m2 Body Surface Area Calculated 1.84 m2 78-Ifi-233114:35 Pulse 60 /min Comments: Pattern: Regular Respiration [...] Description Value Details :27 HgA1C , Office (03841) HgA1C , Office 7.4 % (Abnormal) Range: 4.6 - 7.1 :27 Blood Glucose , Office (81253) Blood Glucose , Office 143 (Normal) 4-Ibg-096949:21 CBC-Complete Blood Cnt No Diff Comments: [facility] [address] [place], [place], [address] MPV 9.8 fL (Normal) Range: 6.2-12.0 PLT [...] 4.2-5.4 WBC 7.0 K/mm3 (Normal) Range: 4.4-11.0 8-Joc-283214:21 Magnesium Comments: [facility] [address] [place], [address] MG 1.9 mg/dL (Normal) Range: 1.6-2.6 3-Veb-504268:21 Protein+Creatinine Ratio,Urine Comments: [facility] [address] [place], [id number] PROT:CRE RATIO 116 {mg/g_CRE} (Normal) Range: 0-200 PROTEIN,UR.RAN. 8.6 mg/dL (Normal) UR CREAT 74.00 mg/dL (Normal) 0-Cjx-019016:21 PTHIN 36.7 pg/mL (Normal) Comments: [facility] [address] [place], [id number] Range: 18.4-80.1 2-Tvd-254873:21 Renal Profile Comments: [facility] [address] [place], [address] CO2 27.0 mmol/L (Normal) Range: 21.0-32.0 CL [...] A.D.A. criteria.Please note revised GLUCOSE reference range yhnkqdcwi36/02/2018. 3-Hrv-748870:21 Uric Acid Comments: [facility] [address] [place], [id number] URIC 5.6 mg/dL (Normal) Range: 2.6-6.0 Comments: The drugs N-Acetylcysteine and Metamizole may falselydepress this assay. :21 Vitamin D,25 Hydroxy Comments: [facility] [address] [place], [id number] Vitamin D 25-OH 32.8 ng/mL (Normal) Range: 29.95-100.01 Comments: Vitamin D 25(OH) Status Range Deficiency <20 ng/mL (50nmol/L) Insuffciency 20 - 30 ng/mL (50 - 75 nmol/L) Sufficiency 30 - 100 ng/mL (75 - 250 nmol/L) Toxicity >100 ng/mL (>250 nmol/L) :59 URIC ACID BLOOD (86650) Comments: PATIENT NOT FASTINGPERFORMED BY: [facility] Oizidn2919 [facility] [id number] Uric Acid 8.7 mg/dL (Abnormal) Range: 2.5-7.1 Comments: Therapeutic target for gout patients: <6.0 :34 HgA1C , Office (07952) HgA1C , Office 6.5 % (Normal) Range: 4.6 - 7.1 :33 Blood Glucose , Office (00882) Blood Glucose , Office 103 (Normal) 08-Xsw-389064:32 Basic Metabolic Profile (BMP) Comments: [facility] [address] [place], [address] GAP 3 (Abnormal) Range: 5-15 CO2 31.0 [...] reference range /02/2018. :36 HgA1C , Office (21921) HgA1C , Office 6.6 % (Normal) Range: 4.6 - 7.1 :36 Blood Glucose , Office (32907) Blood Glucose , Office 186 (Normal) Comments: not fasting 6-Oxf-078570:28 Miscellaneous Lab Procedure Comments: Comments: TRAMADOL URINE [id number](s) Ordered: URINE TOXICOLOGY [id number] RUN LOWEST [facility] [address] [place], [place], [address] [facility] [place]: [id number] 6+OXYCODONE-BUND (ng/mL)DRUG RESULT SCREEN CUTOFF____ Amphetamines,Urine Negat LAB (Normal) emy ng/mL 1000Amphetamine test includes Amphetamine and Methamphetamine.Barbiturates Negative ng/mL 200Benzodiazepines Negative ng/mL 200Cannabinoid TEST Negative ng/mL 20Cocaine (Metab) Negative ng/mL 300Opiates Negative ng/mL 300 Opiates test includes Codeine, Morphine, Hydromorphone, [place] codone.Oxycodone/Oxymorphone,Urine Negative ng/mL 300 Test includes Oxydodone and Oxymorphone. TESTING PERFORMED AT [facility]. ORIGINAL REPORT ON FILE IN LAB CONTAINS ADDITIONAL TEST SITE INFORMATION. 0-Yqt-355359:28 Miscellaneous Lab Procedure 2 Comments: Comments: TRAMADOL URINE [id number] Test(s) Ordered by Physician: URINE TOXICOLOGY [id number] RUN [facility] [address] [place], [address] [facility] [place]: TEST RESULT LIMITSTramadol Positive Cutoff = 200 Tramadol GC/MS COnf 6050 ng/mL Cutoff = 100 LAB (Normal) TESTING PERFORMED AT [facility]. ORIGINAL REPORT ON FILE IN LAB CONTAINS ADDITIONAL TEST SITE INFORMATION. TEST 2 9-Nvj-200589:28 Urine Drug Screen (VISTA) Comments: Comments: TRAMADOL URINE [id number] of Drugs Taken or Suspected? [facility] [address] [place], [address] THC NEGATIVE (Normal) PCP NEGATIVE (Normal) [...] TESTING MUST BE ORDERED SEPARATELY. USE TESTMNEMONIC: [facility] 57-Znm-291081:14 CBC-Complete Blood Cnt No Diff Comments: [facility] [address] [place], [place], [phone](522) MPV 9.5 fL (Normal) Range: 6.2-12.0 PLT [...] 4.2-5.4 WBC 9.7 K/mm3 (Normal) Range: 4.4-11.0 76-Yqq-986727:14 Magnesium Comments: [facility] [address] [place], [place], [address](382) MG 1.7 mg/dL (Normal) Range: 1.6-2.6 46-Zfz-309801:14 Microalb:Creat Ratio,Random UR Comments: [facility] [address] [place], [place], [id number] MALB:CREAT 5.5 {mg/g_CRE} (Normal) MICROALBUMIN,UR 6.1 mg/L (Normal) UR CREAT 111.00 mg/dL (Normal) 97-Nuq-370118:1 PTHIN 25.7 pg/mL (Normal) Comments: [facility] [address] [place], [address] 4 Range: 18.4-80.1 Comments: Please Note: PTH INTACT METHOD AND REFERENCE RANGE CHANGEEffective 11/18/2017. 49-Whk-729122:14 Renal Profile Comments: [facility] [address] [place], [phone] CO2 27.0 mmol/L (Normal) Range: 21.0-32.0 CL [...] A.D.A. criteria.Please note revised GLUCOSE reference range nmlinndpc80/02/2018. 62-Gge-485331:14 Uric Acid Comments: [facility] [address] [place], [address] URIC 8.4 mg/dL (Abnormal) Range: 2.6-6.0 Comments: The drugs N-Acetylcysteine and Metamizole may falselydepress this assay. 42-Xqf-429958:14 Vitamin D,25 Hydroxy Comments: [facility] [address] [place], [address] Vitamin D 25-OH 36.6 ng/mL (Normal) Range: 29.95-100.01 Comments: Vitamin D 25(OH) Status Range Deficiency <20 ng/mL (50nmol/L) Insuffciency 20 - 30 ng/mL (50 - 75 nmol/L) Sufficiency 30 - 100 ng/mL (75 - 250 nmol/L) Toxicity >100 ng/mL (>250 nmol/L) 04-Xtp-92275:27 HgA1C , Office (99376) HgA1C , Office 6.7 % (Normal) Range: 4.6 - 7.1 6-Evm-434830:13 Bedside Glucose Comments: [facility] LaboratoryPoint of [address] [place] [address] BEDSIDE GLU 132 mg/dL (Abnormal) Range: 70-110 Comments: MANAGEMENT OF PATIENT CARE PER NURSING PROTOCOL 08-Jan-20180:00 Culture, Bronch Aveolar Lavage Comments: [facility] [address] [place], [address] CUBRL See Note (Normal) Comments: List Antibiotics Last 48 Hours? .List Antibiotics to be Started? .Gram StainGram Stain No White Blood Cells No organisms seen Resp. CultureMixed normal respiratory hermelindo. No Haemophilus, Streptoc occus pneumoniae, beta-hemolytic Streptococcus or Staphylococcus aureus isolated. 49-Lfb-601785:06 HgA1C , Office (96710) HgA1C , Office 8.2 % (Abnormal) Range: 4.6 - 7.1 :06 Blood Glucose , Office (96223) Blood Glucose , Office 168 (Normal) 17-Cgu-767126:00 Culture, Fungus 8482 Comments: [facility] [address] [place], [address] CUF See Note Comments: PER ORDER, SPUTUM SMEAR/CULTURE FUNGAS Cu,Drvory7380 TESTING PERFORMED AT [facility]. ORIGINAL REPORT ON FILE IN LAB CONTAINS NEO TIONAL TEST (Normal) SITE INFORMATION. CUF Positive Fungus Culture ORGANISM 1: Yana albicansAmount Growth Growth 32-Bew-096740:00 Culture, Sputum Comments: [facility] [address] [facility] [place], [address] CUSP See Note (Normal) Comments: PER ORDER, SPUTUM SMEAR/CULTURE FUNGAS Gram StainAcceptable Specimen? Yes (<25 Epithelial cells per/lpf) Gram Stain 1+ White Blood Cells 1+ Epithelial cells 1+ Gram positive cocci Resp. CultureMixed normal respiratory hermelindo. No Haemophilus, Streptococcus pneumoniae, beta-hemolytic Streptococcus or Staphylococcus aureus isolated. 88-Hjx-214755:49 BNP,B-Type NATRIURETIC PEPTIDE Comments: [facility] [address] [facility] [place], [address] B-TYPE EB PEP 41.7 pg/mL (Normal) Range: 0-100 31-Qfl-671041:30 Rapid Flu (39582 x 2) Influenza A Ag neg (Normal) 0-Rxq-919433:14 Bedside Glucose Comments: [facility] LaboratoryPoint of Upps[address] [facility] [place] [address] BEDSIDE GLU 151 mg/dL (Abnormal) Range: 70-110 Comments: MANAGEMENT OF PATIENT CARE PER NURSING PROTOCOL 07-Dec-20170:00 Culture, Bronch Aveolar Lavage Comments: [facility] [address] [facility] [place], [address] CUBRL See Note (Normal) Comments: [...] $ <=20 S(NF) indicates non-formulary drug at [facility]. Approval by Infectious Disease Specialist required before non-formulary drugs may be ordered and/or dispensed. 8-Qfb-450549:27 CBC-Complete Blood Cnt No Diff Comments: [facility] [address] [place], [place], [address] MPV 10.0 fL (Normal) Range: 6.2-12.0 PLT [...] 4.2-5.4 WBC 14.0 K/mm3 (Abnormal) Range: 4.4-11.0 7-Nfv-345185:27 Hemoglobin A1c Comments: [facility] [address] [place], [address] HGB A1C 7.9 % (Abnormal) Range: 4.2-6.3 0-Rwd-392211:27 Magnesium Comments: [place] [address] [place], [place], [address] MG 1.9 mg/dL (Normal) Range: 1.8-2.4 2-Fec-468684:27 Microalb:Creat Ratio,Random UR Comments: [facility] [address] [place], [address] MALB:CREAT 12.0 {mg/g_CRE} (Normal) MICROALBUMIN,UR 11.1 mg/L (Normal) UR CREAT 92.40 mg/dL (Normal) 6-Ums-805738:27 PTHIN 83.3 pg/mL (Abnormal) Comments: [facility] [address] [place], [address] Range: 18.4-80.1 Comments: Please Note: PTH INTACT METHOD AND REFERENCE RANGE CHANGEEffective 11/18/2017. 8-Lmc-805510:27 Renal Profile Comments: [facility] [address] [place], [address] CO2 24.0 mmol/L (Normal) Range: 21.0-32.0 CL [...] 200 mg/dLsuggests DIABETES MELLITUS per A.D.A. criteria. 5-Jnc-721573:27 Uric Acid Comments: [facility] [address] [place], [address] URIC 9.0 mg/dL (Abnormal) Range: 2.6-6.0 Comments: The drugs N-Acetylcysteine and Metamizole may falselydepress this assay. 2-Sjy-151944:27 Vitamin D,25 Hydroxy Comments: [facility] [address] [place], [address] Vitamin D 25-OH 34.1 ng/mL (Normal) Comments: Vitamin D 25(OH) Status Range Deficiency <20 ng/mL (50nmol/L) Insuffciency 20 - 30 ng/mL (50 - 75 nmol/L) Sufficiency 30 - 100 ng/mL (75 - 250 nmol/L) Toxicity >100 ng/mL (>250 nmol/L) 64-Qgp-96143:22 THROAT CULTURE (63645) Comments: PATIENT NOT FASTINGPERFORMED BY: [place] [facility] Hjchgp4140 [facility] [id number] Information: SRC:TH Result 1 RRF (Normal) Comments: Routine respiratory hermelindo Upper Respiratory Culture Final report (Normal) 35-Frh-923280:09 Rapid Flu (49128 x 2) Comments: Negative Influenza A Ag negative (Normal) 06-Ptw-184950:09 Rapid Strep Test, Office (89948) Comments: Negative Rapid Strep Test, Office Negative (Normal) 60-Oux-530868:52 Microscopic Examination Comments: PATIENT WAS FASTINGPERFORMED BY: [facility] Mjtdgb0509 [facility] [id number] Bacteria None seen (Normal) Mucus Threads Present (Normal) Epithelial Cells (non renal) 0-10 {/hpf} (Normal) Range: 0 - 10 RBC 0-2 {/hpf} (Normal) Range: 0 - 2 WBC 0-5 {/hpf} (Normal) Range: 0 - 5 33-Xgp-361930:08 Magnesium Comments: [facility] [address] [place], [address] MG 1.9 mg/dL (Normal) Range: 1.8-2.4 :08 Microalb:Creat Ratio,Random UR Comments: [facility] [address] [place], [address] MALB:CREAT 8.5 {mg/g_CRE} (Normal) MICROALBUMIN,UR 5.2 mg/L (Normal) UR CREAT 61.10 mg/dL (Normal) 20-Qnh-689804:08 PTH,INTACT Comments: [facility] [address] [place], [address] PTH,Intact 40 pg/mL (Normal) Range: 14-72 :08 Renal Profile Comments: [facility] [address] [place], [address] CO2 23.0 mmol/L (Normal) Range: 21.0-32.0 CL [...] per A.D.A. criteria. :08 Uric Acid Comments: [facility] [address] [place], [address] URIC 8.0 mg/dL (Abnormal) Range: 2.6-6.0 Comments: The drugs N-Acetylcysteine and Metamizole may falselydepress this assay. 57-Tyj-216526:08 Vitamin D,25 Hydroxy Comments: [facility] [address] [place], [address] Vitamin D 25-OH 27.6 ng/mL (Normal) Comments: Vitamin D 25(OH) Status Range Deficiency <20 ng/mL (50nmol/L) Insuffciency 20 - 30 ng/mL (50 - 75 nmol/L) Sufficiency 30 - 100 ng/mL (75 - 250 nmol/L) Toxicity >100 ng/mL (>250 nmol/L) :52 URINALYSIS, W/ MICRO (54578) Comments: PATIENT WAS FASTINGPERFORMED BY: [employer] [place] [id number] Microscopic Examination See below: (Normal) Comments: Microscopic was indicated and was performed. Nitrite, Urine Negative (Normal) Urobilinogen,Semi-Qn 0.2 mg/dL (Normal) Range: 0.2-1.0 Bilirubin Negative (Normal) Occult Blood Negative (Normal) Ketones Negative (Normal) Glucose 1+ (Abnormal) Protein Negative (Normal) WBC Esterase 1+ (Abnormal) Appearance Clear (Normal) Urine-Color Yellow (Normal) pH 6.5 (Normal) Range: 5.0-7.5 Specific [place] 1.023 (Normal) Range: 1.005-1.030 :52 MICROALBUMIN: CREATININE RATIO Comments: PATIENT WAS FASTINGPERFORMED BY: [employer] [place] [id number] (38385) AND (07026) Microalb/Creat Ratio 7.6 {mg/g_creat} (Normal) Range: 0.0-30.0 Microalbumin, Urine 6.8 ug/mL (Normal) Creatinine, Urine 89.4 mg/dL (Normal) 04-Byp-564626:52 METABOLIC PANEL, COMPREHENSIVE Comments: PATIENT WAS FASTINGPERFORMED BY: [facility] CenterWduopt4656 [facility] [id number] (77759) ALT (SGPT) 22 [iU]/L (Normal) Range: 0-32 [...] Glucose, Serum 99 mg/dL (Normal) Range: 65-99 61-Gdd-977738:52 CBC W/AUTO DIFF WBC (66762) Comments: PATIENT WAS FASTINGPERFORMED BY: [facility] CenterDfkppz1997 [facility] [id number] Immature Grans (Abs) 0.0 {x10E3/uL} (Normal) Range: [...] 3.77-5.28 WBC 13.0 {x10E3/uL} (Abnormal) Range: 3.4-10.8 69-Lhq-822528:52 LIPID PANEL (64387) Comments: PATIENT WAS FASTINGPERFORMED BY: [facility] CenterAnfvma4348 [facility] [id number] LDL/HDL Ratio 1.8 {ratio_units} (Normal) Range: 0.0-3.2 [...] 158 mg/dL (Normal) Range: 100-199 :52 TSH (28855) Comments: PATIENT WAS FASTINGPERFORMED BY: [facility] Lwzcjn4710 [facility] [id number] TSH 1.390 {uIU/mL} (Normal) Range: 0.450-4.500 :52 CALCIFEDIOL (47856) Comments: PATIENT WAS FASTINGPERFORMED BY: [facility] Gqwwse1249 [facility] [id number] Vitamin D, 25-Hydroxy 38.5 ng/mL (Normal) Range: 30.0-100.0 Comments: Vitamin D deficiency has been defined by the [place] of[place] and an Endocrine Society practice guideline as alevel of serum 25-OH vitamin D less than 20 ng/mL (1,2).The Endocrine Society went on to further define vitamin Dinsufficiency as a level between 21 and 29 ng/mL (2).1. IOM ([place] of [employer]). 2010. Dietary reference intakes for calcium and D. [place]: The National Academies Press.2. Stephon MF, Ana ROY, Alka ROMERO, et al. Evaluation, treatment, and prevention of vitamin D deficiency: an Endocrine Society clinical practice guideline. JCEM. 2010; 96(7):1911-30. :32 HgA1C , Office (83472) HgA1C , Office 8.1 % (Abnormal) Range: 4.6 - 7.1 :32 Blood Glucose , Office (69561) Blood Glucose , Office 122 (Normal) :37 Immature Cells Comments: PATIENT WAS FASTINGPERFORMED BY: [facility]6370 [facility] [id number] Myelocytes 1 % (Abnormal) Range: 0 - 0 Metamyelocytes 3 % (Abnormal) Range: 0 - 0 :16 PHOSPHORUS (87933) Comments: PATIENT WAS FASTINGPERFORMED BY: [facility] Lvbkua1885 [facility] [id number] Phosphorus, Serum 2.8 mg/dL (Normal) Range: 2.5-4.5 :16 MAGNESIUM (16800) Comments: PATIENT WAS FASTINGPERFORMED BY: [facility]Co[facility] 5783370 [facility] [id number] Magnesium, Serum 1.8 mg/dL (Normal) Range: 1.6-2.3 :16 METABOLIC PANEL, COMPREHENSIVE Comments: PATIENT WAS FASTINGPERFORMED BY: [place] 6390270 [facility] [id number] (76045) ALT (SGPT) 29 [iU]/L (Normal) Range: 0-32 [...] DIR SMEAR Comments: PATIENT NOT FASTINGPERFORMED BY: [facility]6370 [facility] [id number] (01022) Result 1 NOCP (Normal) Comments: No ova, cysts, or parasites seen. Ova + Parasite Exam Final report (Normal) Comments: These results were obtained using wet preparation(s) and trichromestained smear. This test does not include testing for Cryptosporidiumparvum, Cyclospora, or Microsporidia. :34 OCCULT BLOOD FECES SCREEN Comments: PATIENT NOT FASTINGPERFORMED BY: Ch[employer] Tqxnsq1898 [facility]At[facility] [id number] (85931) Occult Blood, Fecal, IA Negative (Normal) :34 LEUKOCYTE COUNT, FECAL (55665) Comments: PATIENT NOT FASTINGPERFORMED BY: [employer] Jtuwqd5330 Wu [facility] SecurityUNC [facility] Center [id number] Result 1 NWBC (Normal) Comments: No white blood cells seen. White Blood Cells (WBC), Final report (Normal) Stool :34 C-DIFFICILE, STOOL (33281) Comments: PATIENT NOT FASTINGPERFORMED BY: Gallus BioPharmaceuticalsrp Pebzsx6138 Wu [facility]ata SecurityUNC [facility] Center [id number] C difficile Toxins A+B, EIA Negative (Normal) :34 ALFONZO CULTURE-STOOL (52558) Comments: PATIENT NOT FASTINGPERFORMED BY: [employer] Hfhgam1637 [facility] [id number] Information: SRC:ST SRC:ST E coli Shiga Toxin EIA Negative (Normal) Result 1 NCI (Normal) Comments: No Campylobacter species isolated. Campylobacter Culture Final report (Normal) Result 1 NSS (Normal) Comments: No Salmonella or Shigella recovered. Salmonella/Shigella Screen Final report (Normal) 85-Mvu-692576:56 Metabolic Panel, Comprehensive Comments: PATIENT NOT FASTINGPERFORMED BY: [employer] Bio[employer]arm[employer]srp Hsnefz5820 Wu [facility]UNC [facility] [id number] (42169) ALT (SGPT) 26 [iU]/L (Normal) Range: 0-32 [...] Glucose, Serum 147 mg/dL (Abnormal) Range: 65-99 84-Btr-786562:56 CBC, Platelets & Auto Diff Comments: PATIENT NOT FASTINGPERFORMED BY: [facility] Iyobpr1918 [facility] [id number] (89045) Immature Grans (Abs) 0.1 {x10E3/uL} (Normal) Range: [...] (Normal) Range: 3.4-10.8 :37 URIC ACID BLOOD (48685) Comments: PATIENT WAS FASTINGPERFORMED BY: FireDrillMeChristian Health Care CenterHjduqt6386 [facility] [id number] Uric Acid, Serum 9.1 mg/dL (Abnormal) Range: 2.5-7.1 Comments: Therapeutic target for gout patients: <6.0 :10 METABOLIC PANEL, COMPREHENSIVE (78468) :37 CBC W/AUTO DIFF WBC (89671) Comments: PATIENT WAS FASTINGPERFORMED BY: FireDrillMeChristian Health Care CenterBvczlx4278 [facility] [id number] Hematology Comments: Note: (Normal) Comments: Manual differential [...] 3.77-5.28 WBC 9.4 {x10E3/uL} (Normal) Range: 3.4-10.8 43-Esf-420548:58 Magnesium Comments: [facility] [address] [place], [address] MG 2.0 mg/dL (Normal) Range: 1.8-2.4 Comments: Slight Hemolysis, Result may be falsely increased. 81-Tdl-374235:58 Renal Profile Comments: [facility] [address] [place], [address] CO2 27.0 mmol/L (Normal) Range: 21.0-32.0 CL [...] per A.D.A. criteria. :45 URIC ACID BLOOD (63103) Comments: PATIENT NOT FASTINGPERFORMED BY: [facility]UNC [facility] [id number] Uric Acid, Serum 9.6 mg/dL (Abnormal) Range: 2.5-7.1 Comments: Therapeutic target for gout patients: <6.0 :45 RENAL FUNCTION PANEL (44918) Comments: PATIENT NOT FASTINGPERFORMED BY: OLX70 Wu [facility] [id number] Albumin, Serum 4.5 g/dL (Normal) Range: 3.6-4.8 [...] 214 mg/dL (Abnormal) Range: 65-99 :24 CALCIFIDIOL (58336) VIT D 25 Comments: PATIENT WAS FASTINGPERFORMED BY: Patient Engagement Systems6370 [facility]SS[facility] [id number] Vitamin D, 25-Hydroxy 44.9 ng/mL (Normal) Range: 30.0-100.0 Comments: Vitamin D deficiency has been defined by the [place] of[place] and an Endocrine Society practice guideline as alevel of serum 25-OH vitamin D less than 20 ng/mL (1,2).The Endocrine Society went on to further define vitamin Dinsufficiency as a level between 21 and 29 ng/mL (2).1. IOM ([place] of Medicine). 2010. Dietary reference intakes for calcium and D. [place]: The National Academies Press.2. Stephon MF, Ana ROY, Alka ROMERO, et al. Evaluation, treatment, and prevention of vitamin D deficiency: an Endocrine Society clinical practice guideline. JCEM. 2010; 96(7):1911-30. :39 HgA1C , Office (65041) HgA1C , Office 7.6 % (Abnormal) Range: 4.6 - 7.1 :39 Blood Glucose , Office (37085) Blood Glucose , Office 174 (Normal) :56 TSH (58165) Comments: PATIENT WAS FASTINGPERFORMED BY: [facility] Qjxcnw4540 [facility] [id number] TSH 2.180 {uIU/mL} (Normal) Range: 0.450-4.500 :56 LIPID PANEL (58888) Comments: PATIENT WAS FASTINGPERFORMED BY: [facility] Yxxbow9740 [facility] [id number] LDL/HDL Ratio 1.8 {ratio_units} (Normal) Range: 0.0-3.2 [...] Range: 100-199 :36 CBC W/Diff, Automated Comments: [facility] [address] [place], [place], [address] Absolute Lymph 1.31 {X10_3/ul} (Normal) Range: 0.83-4.51 [...] 4.2-5.4 WBC 10.5 K/mm3 (Normal) Range: 4.4-11.0 3-Ppc-352842:36 Magnesium Comments: [facility] [address] [place], [place], [phone]) MG 1.9 mg/dL (Normal) Range: 1.8-2.4 0-Rlh-275535:36 Protein+Creatinine Ratio,Urine Comments: [facility] [address] [facility] [place], [address] PROT:CRE RATIO 120 {mg/g_CRE} (Normal) Range: 0-200 PROTEIN,UR.RAN. 13.6 mg/dL (Abnormal) UR CREAT 113.00 mg/dL (Normal) 7-Wul-374659:36 PTH,INTACT Comments: [facility] [address] [place], [id number] PTH,Intact 27 pg/mL (Normal) Range: 14-72 2-Ylp-066902:36 Renal Profile Comments: [facility] [address] [place], [address] CO2 27.0 [...] per A.D.A. criteria. :36 Uric Acid Comments: [facility] [address] [place], [phone] URIC 7.5 mg/dL (Abnormal) Range: 2.6-6.0 Comments: The drugs N-Acetylcysteine and Metamizole may falsely deressthis assay. 1-Upz-770189:36 Vitamin D,25 Hydroxy Comments: [facility] [address] [place], [phone] Vitamin D 25-OH 33.9 ng/mL (Normal) Comments: Vitamin D 25(OH) Status Range Deficiency <20 ng/mL (50nmol/L) Insuffciency 20 - 30 ng/mL (50 - 75 nmol/L) Sufficiency 30 - 100 ng/mL (75 - 250 nmol/L) Toxicity >100 ng/mL (>250 nmol/L) :24 Renal Profile Comments: [facility] [address] [place], [place], [id number] CO2 24.0 mmol/L (Normal) Range: 21.0-32.0 CL [...] Immature Cells Comments: PATIENT WAS FASTINGPERFORMED BY: FireDrillMe Pqzcgr1960 [facility]UNC [facility] [id number] Myelocytes 4 % (Abnormal) Range: 0 - 0 :46 Microscopic Examination Comments: PATIENT WAS FASTINGPERFORMED BY: Patient Engagement Systems6370 [facility]reet.comUNC [facility] Center [id number] Bacteria Few (Normal) Mucus Threads Present (Normal) Crystal Type Calcium Oxalate (Normal) Crystals Present (Abnormal) Epithelial Cells (non renal) 0-10 {/hpf} (Normal) Range: 0 - 10 RBC 3-10 {/hpf} (Abnormal) Range: 0 - 2 WBC 11-30 {/hpf} (Abnormal) Range: 0 - 5 :47 Sputum Culture (77549) Comments: PATIENT NOT FASTINGPERFORMED BY: [employer] Reverse Mortgage Lenders DirectAtrium Health [facility] [id number] Information: SRC:SP Result 1 RRF (Normal) Comments: Routine respiratory hermelindo Lower Respiratory Culture Final report (Normal) :46 CALCIFEDIOL (88544) Comments: PATIENT WAS FASTINGPERFORMED BY: Patient Engagement Systems6370 [facility] IlluminationAt[facility] [id number] Vitamin D, 25-Hydroxy 32.4 ng/mL (Normal) Range: 30.0-100.0 Comments: Vitamin D deficiency has been defined by the [place] of[place]icine and an Endocrine Society practice guideline as alevel of serum 25-OH vitamin D less than 20 ng/mL (1,2).The Endocrine Society went on to further define vitamin Dinsufficiency as a level between 21 and 29 ng/mL (2).1. IOM ([place] of [place]). 2010. Dietary reference intakes for calcium and D. [place]: The National Academies Press.2. Stephon MF, Ana NC, Alka ROMERO, et al. Evaluation, treatment, and prevention of vitamin D deficiency: an Endocrine Society clinical practice guideline. JCEM. 2010; 96(7):1911-30. :46 Metabolic Panel, Comprehensive Comments: PATIENT WAS FASTINGPERFORMED BY: [employer] Ljivqw8337 [facility] IlluminationAt[facility] [id number] (70450) ALT (SGPT) 19 [iU]/L (Normal) Range: 0-32 [...] Glucose, Serum 126 mg/dL (Abnormal) Range: 65-99 56-Qeq-73553:46 CBC WITH MANUAL DIFF Comments: PATIENT WAS FASTINGPERFORMED BY: LabScheurer Hospital6370 [facility] [id number] Information: [id number] (94537) Hematology Comments: Note: (Normal) Comments: Manual differential [...] 14.0 {x10E3/uL} (Abnormal) Range: 3.4-10.8 :46 URINALYSIS (06344) Comments: PATIENT WAS FASTINGPERFORMED BY: [facility] AllianceAt[facility] [id number] Microscopic Examination See below: (Normal) Comments: Microscopic was indicated and was performed. Nitrite, Urine Negative (Normal) Urobilinogen,Semi-Qn 0.2 mg/dL (Normal) Range: 0.2-1.0 Bilirubin Negative (Normal) Occult Blood Negative (Normal) Ketones Negative (Normal) Glucose 2+ (Abnormal) Protein Negative (Normal) WBC Esterase 3+ (Abnormal) Appearance Clear (Normal) Urine-Color Yellow (Normal) pH 6.5 (Normal) Range: 5.0-7.5 Specific [place] 1.022 (Normal) Range: 1.005-1.030 :46 MICROALBUMIN: CREATININE RATIO Comments: PATIENT WAS FASTINGPERFORMED BY: [employer] [facility] [id number] (87274) AND (68818) Microalb/Creat Ratio 10.1 {mg/g_creat} (Normal) Range: 0.0-30.0 Microalbumin, Urine 7.3 ug/mL (Normal) Creatinine, Urine 72.6 mg/dL (Normal) :46 TSH (38359) Comments: PATIENT WAS FASTINGPERFORMED BY: Streamline Alliancein [place] [id number] TSH 2.600 {uIU/mL} (Normal) Range: 0.450-4.500 :46 Lipid Panel (64643) Comments: PATIENT WAS FASTINGPERFORMED BY: PRATIMA [facility] Mmmhfv9423 [facility] [id number]; has appt 08/20, will review at that [...] (Normal) Range: 100-199 :49 HgA1C , Office (00861) HgA1C , Office 6.6 % (Normal) Range: 4.6 - 7.1 :49 Blood Glucose , Office (67086) Blood Glucose , Office 113 (Normal) :10 CBC W/Diff, Automated Comments: [facility] [address] [place], [place], [phone] Absolute Lymph 1.40 {X10_3/ul} (Normal) Range: 0.83-4.51 [...] (Normal) Range: 4.4-11.0 :10 Magnesium Comments: Comments: [facility] [address] [place], [phone](697) MG 1.9 mg/dL (Normal) Range: 1.8-2.4 :10 Protein+Creatinine Ratio,Urine Comments: [facility] [address] [place], [phone] PROT:CRE RATIO 112 {mg/g_CRE} (Normal) Range: 0-200 PROTEIN,UR.RAN. 8.1 mg/dL (Normal) UR CREAT 72.10 mg/dL (Normal) 08-Mzi-935033:10 PTH,INTACT Comments: [facility] [address] [facility] [place], [address] PTH,Intact 29 pg/mL (Normal) Range: 14-72 :10 Renal Profile Comments: Comments: [facility] [address] [place], [place], [phone](276) CO2 25.0 mmol/L (Normal) Range: 21.0-32.0 CL [...] A.D.A. criteria. :10 Uric Acid Comments: Comments: [facility] [address] [facility] [address] [place], [place], [address] URIC 7.1 mg/dL (Abnormal) Range: 2.6-6.0 Comments: The drugs N-Acetylcysteine and Metamizole may falsely deressthis assay. :10 Vitamin D,25 Hydroxy Comments: [facility] [address] [facility] [place], [place], [address] Vitamin D 25-OH 35.5 ng/mL (Normal) Comments: Vitamin D 25(OH) Status Range Deficiency <20 ng/mL (50nmol/L) Insuffciency 20 - 30 ng/mL (50 - 75 nmol/L) Sufficiency 30 - 100 ng/mL (75 - 250 nmol/L) Toxicity >100 ng/mL (>250 nmol/L) :10 CALCIUM SERUM (47623) Comments: PATIENT NOT FASTINGPERFORMED BY: [facility]6370 [facility] [id number] Information: [id number] Calcium, Serum 10.3 mg/dL (Normal) Range: 8.7-10.3 32-Cvs-766082:10 MAGNESIUM (14267) Comments: PATIENT NOT FASTINGPERFORMED BY: [facility]6370 [facility] [id number] Magnesium, Serum 2.1 mg/dL (Normal) Range: 1.6-2.3 4-Qfs-201778:14 Bedside Glucose Comments: [facility] LaboratoryPoint of [address] [place] [address] BEDSIDE GLU 110 mg/dL (Normal) Range: 70-110 Comments: MANAGEMENT OF PATIENT CARE PER NURSING PROTOCOL 82-Reh-068747:26 Metabolic Panel, Basic Comments: PATIENT NOT FASTINGPERFORMED BY: [place] 6390270 [facility] [id number] Information: [id number]; will review on 06/04 (59134) Calcium, Serum 10.0 mg/dL (Normal) Range: 8.7-10.3 [...] Glucose, Serum 104 mg/dL (Abnormal) Range: 65-99 80-Iyq-705466:39 Magnesium Comments: ORDERED CA AND PTHINDR.LUZ ORDERED CBC PTHIN RENAL VITD CRE/PROURIC [facility] [address] [place], [address] MG 2.0 mg/dL (Normal) Range: 1.8-2.4 :39 Protein+Creatinine Ratio,Urine Comments: [facility] [address] [place], [phone] PROT:CRE RATIO 188 {mg/g_CRE} (Normal) Range: 0-200 PROTEIN,UR.RAN. < 6.0 mg/dL (Normal) UR CREAT 29.80 mg/dL (Normal) :39 PTH,INTACT Comments: [facility] [address] [place], [phone] PTH,Intact 53 pg/mL (Normal) Range: 14-72 :39 Renal Profile Comments: ORDERED CA AND PTHINDR.LUZ ORDERED CBC PTHIN RENAL VITD CRE/PROURIC [facility] [address] [place], [place], [address] CO2 22.0 mmol/L (Normal) Range: 21.0-32.0 CL [...] 200 mg/dLsuggests DIABETES MELLITUS per A.D.A. criteria. 75-Iut-702268:39 Uric Acid Comments: ORDERED CA AND PTHINDR.LUZ ORDERED CBC PTHIN RENAL VITD CRE/PROURIC [facility] [address] [place], [address] URIC 7.3 mg/dL (Abnormal) Range: 2.6-6.0 Comments: The drugs N-Acetylcysteine and Metamizole may falsely deressthis assay. :39 Vitamin D,25 Hydroxy Comments: [facility] [address] [place], [address] Vitamin D 25-OH 52.3 ng/mL (Normal) Comments: Vitamin D 25(OH) Status Range Deficiency <20 ng/mL (50nmol/L) Insuffciency 20 - 30 ng/mL (50 - 75 nmol/L) Sufficiency 30 - 100 ng/mL (75 - 250 nmol/L) Toxicity >100 ng/mL (>250 nmol/L) 4-Hhb-134445:09 URINE CALCIUM KAITLIN TIMED Comments: PATIENT NOT FASTINGPERFORMED BY: [facility] Nzrlxn0188 [facility] [id number] Information: [id number] 2500ML START @6AM FINISH 05/05/16@ 6AM (82810) Calcium, Urine 24hr 45.0 {mg/24_hr} (Abnormal) Range: 100.0-300.0 Calcium, Urine 1.8 mg/dL (Normal) 02-May-20169:30 Fecal Occult Blood , Office (66946) Fecal Occult Blood , Office (Inhouse) negative (Normal) 54-Obk-997964:23 Crystals, Body Fluid Comments: [facility] [address] [place], [address] PATH REV Reviewed (Normal) Comments: Negative for malignant cells.Mixture of calcium pyrophosphate (pseudogout) crystals andnondescript crystals are noted.Johnson Castro M.D. 04/29/16 SOURCE/BF SYNOVIAL (Normal) CRYSTALS/BF SEE PATH REV (Normal) 77-Vja-241161:23 Culture, Body Fluid Comments: [facility] [address] [place], [address] CUBF See Note (Normal) Comments: List Antibiotics [...] :23 Synovial Fluid RBC, WBC AND Comments: [facility] [address] [facility] [place], [address] Diff PATH COM/SYFL March (Normal) OTHER CELL [...] COLOR Yellow (Normal) VISCOSITY/SYFL Sl. Viscous (Normal) 5-Gqg-971414:58 CALCIUM SERUM (44033) Comments: PATIENT NOT FASTINGPERFORMED BY: RFEyeD Wu [facility] [id number] Information: [id number] Calcium, Serum 10.6 mg/dL (Abnormal) Range: 8.7-10.3 48-Tip-97223:10 Microscopic Examination Comments: PATIENT WAS FASTINGPERFORMED BY: RFEyeD Wu [facility] [id number] Bacteria None seen (Normal) Mucus Threads Present (Normal) Epithelial Cells (non renal) 0-10 {/hpf} (Normal) Range: 0 - 10 RBC None seen {/hpf} (Normal) Range: 0 - 2 WBC 0-5 {/hpf} (Normal) Range: 0 - 5 :10 CALCIFIDIOL (12228) VIT D 25 Comments: PATIENT WAS FASTINGPERFORMED BY: RFEyeD [facility] [id number] Vitamin D, 25-Hydroxy 63.0 ng/mL (Normal) Range: 30.0-100.0 Comments: Vitamin D deficiency has been defined by the [place] and an Endocrine Society practice guideline as alevel of serum 25-OH vitamin D less than 20 ng/mL (1,2).The Endocrine Society went on to further define vitamin Dinsufficiency as a level between 21 and 29 ng/mL (2).1. IOM ([place]). 2010. Dietary reference intakes for calcium and D. [place]: The National Academies Press.2. Stephon MF, Ana [place], [place] ROMERO, et al. Evaluation, treatment, and prevention of vitamin D deficiency: an Endocrine Society clinical practice guideline. JCEM. 2010; 96(7):1911-30. :10 TSH (52781) Comments: PATIENT WAS FASTINGPERFORMED BY: [employer] [place] [id number] TSH 2.680 {uIU/mL} (Normal) Range: 0.450-4.500 :10 URINALYSIS, W/ MICRO (31093) Comments: PATIENT WAS FASTINGPERFORMED BY: [facility] AllianceAt[facility] [id number] Microscopic Examination See below: (Normal) Comments: Microscopic was indicated and was performed. Microscopic Examination MICRON (Normal) Comments: Microscopic follows if indicated. Nitrite, Urine Negative (Normal) Urobilinogen,Semi-Qn 0.2 mg/dL (Normal) Range: 0.2-1.0 Bilirubin Negative (Normal) Occult Blood Negative (Normal) Ketones Negative (Normal) Glucose 3+ (Abnormal) Protein Negative (Normal) WBC Esterase Negative (Normal) Appearance Clear (Normal) Urine-Color Yellow (Normal) pH 6.5 (Normal) Range: 5.0-7.5 Specific [place] 1.022 (Normal) Range: 1.005-1.030 :10 MICROALBUMIN: CREATININE RATIO Comments: PATIENT WAS FASTINGPERFORMED BY: [facility] AllianceAt[facility] [id number] (63143) AND (34202) Microalb/Creat Ratio 20.5 {mg/g_creat} (Normal) Range: 0.0-30.0 Microalbumin, Urine 20.1 ug/mL (Normal) Comments: Please note reference interval change Creatinine, Urine 97.9 mg/dL (Normal) Comments: Please note reference interval change :10 LIPID PANEL (01771) Comments: PATIENT WAS FASTINGPERFORMED BY: FireDrillMeChristian Health Care CenterRrbudq3461 [facility] [id number] LDL/HDL Ratio 2.0 {ratio_units} (Normal) Range: 0.0-3.2 [...] PANEL, COMPREHENSIVE Comments: PATIENT WAS FASTINGPERFORMED BY: [employer] Zrwdxz3630 [facility] [id number]; will review on 04.18 (96503) ALT (SGPT) 18 [iU]/L (Normal) Range: 0-32 [...] Glucose, Serum 143 mg/dL (Abnormal) Range: 65-99 96-Ijv-38710:10 CBC W/AUTO DIFF WBC Comments: PATIENT WAS FASTINGPERFORMED BY: [facility] Hospital6370 [facility] [id number] Information: [id number] (17201) Immature Grans (Abs) 0.0 {x10E3/uL} (Normal) Range: [...] 3.77-5.28 WBC 7.8 {x10E3/uL} (Normal) Range: 3.4-10.8 20-Kzj-905856:02 HgA1C , Office (52830) HgA1C , Office 6.6 % (Normal) Range: 4.6 - 7.1 38-Bxh-709411:02 Blood Glucose , Office (47370) Blood Glucose , Office 142 (Normal) 04-Qbv-796319:20 NuSwab Vaginitis Plus Comments: PATIENT NOT FASTINGPERFORMED BY: Lab[address] [id number] Information: [id number] (STD W/O Herpes) (27465) Neisseria gonorrhoeae, YAIR Negative (Normal) Chlamydia trachomatis, YAIR Negative (Normal) Trich vag by YAIR Negative (Normal) Yana glabrata, YAIR Negative (Normal) Comments: This test was developed and its performance characteristics determinedby [facility]. It has not been cleared or approved [...] was developed and its performance characteristics determinedby [facility]. It has not been cleared or appro tima by the Food and DrugAdministration. The FDA has determined that such clearance orapproval is not necessary. BVAB 2 Low - 0 {Score} (Normal) Atopobium vaginae Low - 0 {Score} (Normal) 47-Jwg-549370:56 Magnesium Comments: Test performed at:[facility] [address] [place], [place] [address] MG 2.2 mg/dL (Normal) Range: 1.8-2.4 :56 Protein+Creatinine Ratio,Urine Comments: Test performed at:[facility] [address] [place] [address] PROT:CRE RATIO 440 {mg/g_CRE} (Abnormal) Range: 0-200 PROTEIN,UR.RAN. 8.1 mg/dL (Normal) UR CREAT 18.20 mg/dL (Normal) 78-Sat-669333:56 Renal Profile Comments: Test performed at:[facility] [address] [place] [address] CO2 28.0 mmol/L (Normal) Range: [...] Comments: Please note revised CREATININE reference range ehmkbsbym50/22/2015. BUN 44 mg/dL (Abnormal) Range: 7-18 GLU 186 mg/dL (Abnormal) Range: 70-110 Comments: Fasting Glucose result greater than or equal to 126 mg/dLsuggests DIABETES MELLITUS per A.D.A. criteria. :56 Uric Acid Comments: Test performed at:[facility] [address] [address] URIC 6.5 mg/dL (Abnormal) Range: 2.6-6.0 :56 Vitamin D,25 Hydroxy Comments: Test performed at:[facility] [address] [address] Vitamin D 25-OH 67.0 ng/mL (Normal) Comments: Vitamin D 25(OH) Status Range Deficiency <20 ng/mL (50nmol/L) Insuffciency 20 - 30 ng/mL (50 - 75 nmol/L) Sufficiency 30 - 100 ng/mL (75 - 250 nmol/L) Toxicity >100 ng/mL (>250 nmol/L) 98-Qlx-327616:01 Rapid Strep Test, Office (56620) Rapid Strep Test, Office Negative (Normal) :21 HgA1C , Office (68092) HgA1C , Office 6.4 % (Normal) Range: 4.6 - 7.1 :21 Blood Glucose , Office (94661) Blood Glucose , Office 167 (Normal) :01 Microscopic Examination Comments: PATIENT WAS FASTINGPERFORMED BY: [facility] [id number] Bacteria Few (Normal) Mucus Threads Present (Normal) Epithelial Cells (non renal) 0-10 {/hpf} (Normal) Range: 0 - 10 RBC 0-2 {/hpf} (Normal) Range: 0 - 2 WBC 6-10 {/hpf} (Abnormal) Range: 0 - 5 :50 Antinuclear Antibodies Direct Comments: PATIENT NOT FASTINGPERFORMED BY: RFEyeD WuSpotlight.fmAtrium Health [facility] [id number] HEIDI Direct Negative (Normal) : C-Reactive Protein, 7.3 mg/L (Abnormal) Comments: PATIENT NOT FASTINGPERFORMED BY: [facility]At[facility] [id number] 50 Quant Range: 0.0-4.9 :50 CBC, Platelet, No Differential Comments: PATIENT NOT FASTINGPERFORMED BY: [facility]At[facility] [id number] Platelets 253 {x10E3/uL} (Normal) Range: 150-379 RDW 15.0 % (Normal) Range: 12.3-15.4 MCHC 32.2 g/dL (Normal) Range: 31.5-35.7 MCH 28.1 pg (Normal) Range: 26.6-33.0 MCV 87 fL (Normal) Range: 79-97 Hematocrit 40.1 % (Normal) Range: 34.0-46.6 Hemoglobin 12.9 g/dL (Normal) Range: 11.1-15.9 RBC 4.59 {x10E6/uL} (Normal) Range: 3.77-5.28 WBC 8.2 {x10E3/uL} (Normal) Range: 3.4-10.8 4-Omk-056410:50 Comp. Metabolic Panel (14) Comments: PATIENT NOT FASTINGPERFORMED BY: [facility] Syqknz5988 [facility] [id number] Information: [id number] ALT (SGPT) 17 [iU]/L (Normal) Range: 0-32 [...] Glucose, Serum 121 mg/dL Range: 65-99 (Abnormal) 9-Mkp-672045: Folate (Folic Acid), 17.4 ng/mL (Normal) Comments: PATIENT NOT FASTINGPERFORMED BY: PRATIMA [employer] Ocihkr7842 Wu [facility] [place] [id number] 50 Serum Comments: A serum folate concentration of less than 3.1 ng/mL isconsidered to represent clinical deficiency. :50 Rheumatoid Arthritis Factor Comments: PATIENT NOT FASTINGPERFORMED BY: [facility] Kgbody3607 [facility] [place] [id number] RA Latex Turbid. 10.5 {IU/mL} Range: 0.0-13.9 (Normal) Sedimentation 7 mm/h (Normal) Comments: PATIENT NOT FASTINGPERFORMED BY: [facility] Sqagmo7551 [facility] [place] [id number] :50 Rate-Westergren Range: 0-40 TSH 2.450 {uIU/mL} Comments: PATIENT NOT FASTINGPERFORMED BY: [facility] Jizikq9793 [facility] [place] [id number] :50 (Normal) Range: 0.450-4.500 Vitamin B12 1684 pg/mL Comments: PATIENT NOT FASTINGPERFORMED BY: PRATIMA Financial Transaction ServicesCo Osyrys0566 [facility] [place] [id number] :50 (Abnormal) Range: 211-946 Vitamin D, 25-Hydroxy 75.1 ng/mL Comments: PATIENT NOT FASTINGPERFORMED BY: [facility] Avkoei1496 [facility] [place] [id number] :50 (Normal) Range: 30.0-100.0 Comments: Vitamin D deficiency has been defined by the [place] of[place]icine and an Endocrine Society practice guideline as alevel of serum 25-OH vitamin D less than 20 ng/mL (1,2).The Endocrine Society went on to further define vitamin Dinsufficiency as a level between 21 and 29 ng/mL (2).1. IOM ([place] of Medicine). 2010. Dietary reference intakes for calcium and D. [place]: The National Academies Press.2. Stephon MF, Ana ROY, Alka ROMERO, et al. Evaluation, treatment, and prevention of vitamin D deficiency: an Endocrine Society clinical practice guideline. JCEM. 2010; 96(7):9611-30. 2-Jdm-350012:57 Lower Respiratory Culture Comments: PATIENT NOT FASTINGPERFORMED BY: [employer] Avlxlr5214 [employer]um[employer] [id number] Information: SRC:[facility] [id number] Result 1 RRF (Normal) Comments: Routine respiratory hermelindo Lower Respiratory Culture Final report (Normal) :01 MICROALBUMIN: CREATININE RATIO Comments: PATIENT WAS FASTINGPERFORMED BY: OLX70 [facility] [id number] (72378) AND (35232) Microalb/Creat Ratio 22.8 {mg/g_creat} (Normal) Range: 0.0-30.0 Microalbumin, Urine 18.8 ug/mL (Abnormal) Range: 0.0-17.0 Creatinine, Urine 82.6 mg/dL (Normal) Range: 15.0-278.0 :01 URINALYSIS (44095) Comments: PATIENT WAS FASTINGPERFORMED BY: [employer] Qxfdwq8545 [facility]reet.comUNC [facility] [id number] Microscopic Examination See below: (Normal) Comments: Microscopic was indicated and was performed. Nitrite, Urine Negative (Normal) Urobilinogen,Semi-Qn 0.2 mg/dL (Normal) Range: 0.0-1.9 Bilirubin Negative (Normal) Occult Blood Negative (Normal) Ketones Negative (Normal) Glucose 2+ (Abnormal) Protein Negative (Normal) WBC Esterase Trace (Abnormal) Appearance Clear (Normal) Urine-Color Yellow (Normal) pH 6.5 (Normal) Range: 5.0-7.5 Specific [place] 1.020 (Normal) Range: 1.005-1.030 :01 Metabolic Panel, Comments: PATIENT WAS FASTINGPERFORMED BY: [employer] Eehtzq0342 [employer] [id number] Information: [id number], [id number] Comprehensive (25729) ALT (SGPT) 17 [iU]/L (Normal) Range: 0-32 [...] Glucose, Serum 110 mg/dL (Abnormal) Range: 65-99 66-Pie-55171:01 CALCIFEDIOL (18958) Comments: PATIENT WAS FASTINGPERFORMED BY: [facility]6370 [facility] [id number] Vitamin D, 25-Hydroxy 101.0 ng/mL (Abnormal) Range: 30.0-100.0 Comments: Vitamin D deficiency has been defined by the [place] of[place]icine and an Endocrine Society practice guideline as alevel of serum 25-OH vitamin D less than 20 ng/mL (1,2).The Endocrine Society went on to further define vitamin Dinsufficiency as a level between 21 and 29 ng/mL (2).1. IOM ([place] of [place]). 2010. Dietary reference intakes for calcium and D. [place]: The National Academies Press.2. Stephon HOLCOMB, Ana [place], Alka ROMERO, et al. Evaluation, treatment, and prevention of vitamin D deficiency: an Endocrine Society clinical practice guideline. JCEM. 2010; 96(7):1911-30. :01 Lipid Panel (87287) Comments: PATIENT WAS FASTINGPERFORMED BY: [facility] Iihjyn1911 [facility] [id number] LDL/HDL Ratio 1.4 {ratio_units} (Normal) Range: 0.0-3.2 [...] (Normal) Range: 100-199 :06 HgA1C , Office (12784) HgA1C , Office 6.4 % (Normal) Range: 4.6 - 7.1 :06 Blood Glucose , Office (78470) Blood Glucose , Office 168 (Normal) :43 CBC W/Diff, Automated Comments: Test performed at:[facility] [address] [place] [address] Absolute Lymph 1.33 {X10_3/ul} (Normal) Range: 0.83-4.51 [...] Range: 4.4-11.0 :43 Magnesium Comments: Test performed at:[facility] [address] [place] [address] 99873 MG 1.6 mg/dL (Abnormal) Range: 1.8-2.4 :43 Protein+Creatinine Ratio,Urine Comments: Test performed at:[facility] D[address] [place] [address] 44691 PROT:CRE RATIO 143 {mg/g_CRE} (Normal) Range: 0-200 PROTEIN,UR.RAN. 16.0 mg/dL (Abnormal) UR CREAT 111.6 mg/dL (Normal) :43 Renal Profile Comments: Test performed at:[facility] [address] [place] [address] 81430 CO2 29.0 mmol/L (Normal) Range: 21.0-32.0 CL [...] criteria. :43 Uric Acid Comments: Test performed at:[facility] Aoatkomteb6864 [facility] [place], [place] [address] URIC 7.5 mg/dL (Abnormal) Range: 2.6-6.0 :43 Vitamin D,25 Hydroxy Comments: Test performed at:[facility] Refzjjjkin8423 [facility] [place] [address] Vitamin D 25-OH 48.0 ng/mL (Normal) Comments: Vitamin D 25(OH) Status Range Deficiency <20 ng/mL (50nmol/L) Insuffciency 20 - 30 ng/mL (50 - 75 nmol/L) Sufficiency 30 - 100 ng/mL (75 - 250 nmol/L) Toxicity >100 ng/mL (>250 nmol/L) :16 HgA1C , Office (09973) HgA1C , Office 5.6 % (Normal) Range: 4.6 - 7.1 :16 Blood Glucose , Office (46019) Blood Glucose , Office 113 (Normal) :35 CALCIUM SERUM (21133) Comments: PATIENT NOT FASTINGPERFORMED BY: [facility] Smjkgv5904 [facility] [id number] Information: [id number] Calcium, Serum 10.0 mg/dL (Normal) Range: 8.6-10.2 :55 HEIDI Negative (Normal) Comments: Performed at: - [address] [id number] Director: Taurus Morrissey MD, Phone: [phone] :[phone] CBCD ALC 1.15 {X10_3/ul} (Normal) Range: [...] HEBSAG ttHEBSAG Negative (Normal) Comments: Performed at: [facility] [address] [id number] Director: aTurus Morrissey MD, Phone: [phone] at: [place] [address] [place], [place] [address] 1Lab Director: Juan Carlos Mathew MD, Phone: [phone] :[phone] HECAB tHECAB 0.1 {s/co_ratio} (Normal) Range: 0.0-0.9 Comments: Negative: < 0.8Indeterminate 0.8 - 0.9Positive: > 0.9In order to reduce the incidence of a false positiveresult, the CDC recommends that all s/co ratiosbetween 1.0 and 10.9 be confirmed by a more specificsupplemental or PCR testing. [facility] Abw/Reflex to Verification test #[id number]. :55 RF < 10.0 {IU/mL} (Normal) :55 SED tSEDRATE 7 mm/h (Normal) Range: 0-30 :55 VITD 45.5 mg/mL (Normal) Comments: Vitamin D 25(OH) Status RangeDeficiency <20 ng/mL (50nmol/L)Insuffciency 20 - 30 ng/mL (50 - 75 nmol/L)Sufficiency 30 - 100 ng/mL (75 - 250 nmol/L)Toxicity >100 ng/mL (>250 nmol/L) :05 CALCIFEDIOL (07657) Comments: PATIENT NOT FASTINGPERFORMED BY: PRATIMA LabCoChristian Health Care CenterJsfcui8115 [facility] [id number] Information: [id number] Vitamin D, 25-Hydroxy 34.1 ng/mL (Normal) Range: 30.0-100.0 Comments: Vitamin D deficiency has been defined by the [place] of[place] and an Endocrine Society practice guideline as alevel of serum 25-OH vitamin D less than 20 ng/mL (1,2).The Endocrine Society went on to further define vitamin Dinsufficiency as a level between 21 and 29 ng/mL (2).1. IOM ([place]). 2010. Dietary reference intakes for calcium and D. [place]: The National Academies Press.2. Stephon MF, Ana NC, Alka ROMERO, et al. Evaluation, treatment, and prevention of vitamin D deficiency: an Endocrine Society clinical practice guideline. JCEM. 2010; 96(7):1911-30. 70-Egh-85726:05 CALCIUM SERUM (23477) Comments: PATIENT NOT FASTINGPERFORMED BY: PRATIMA Asher6370 Wu [facility] [id number] Calcium, Serum 10.3 mg/dL (Abnormal) Range: 8.6-10.2 :43 CALCIFIDIOL (17101) VIT D Comments: PATIENT NOT FASTINGPERFORMED BY: PRATIMA Financial Transaction ServicesProgress West Hospital Xejunr1101 [facility] [id number] Information: [id number] 25 Vitamin D, 25-Hydroxy 44.7 ng/mL (Normal) Range: 30.0-100.0 Comments: Vitamin D deficiency has been defined by the [place] of[place] and an Endocrine Society practice guideline as alevel of serum 25-OH vitamin D less than 20 ng/mL (1,2).The Endocrine Society went on to further define vitamin Dinsufficiency as a level between 21 and 29 ng/mL (2).1. IOM ([place]). 2010. Dietary reference intakes for calcium and D. [place]: The National Academies Press.2. Stephon MF, Ana ROY, Alka ROMERO, et al. Evaluation, treatment, and prevention of vitamin D deficiency: an Endocrine Society clinical practice guideline. JCEM. 2010; 96(7):1911-30. 48-Bge-830782:36 URINE CALCIUM KAITLIN TIMED Comments: PATIENT NOT FASTINGPERFORMED BY: [facility] Transaction ServicesProgress [facility] Hospital Zvdzmg5888 [facility] [id number] Information: [id number] 1950ML START 05/21@630AM FINISH 05/22/14@6 30AM 24 Hour (46640) Calcium, Urine 24hr 93.6 {mg/24_hr} (Abnormal) Range: 100.0-300.0 Calcium, Urine 4.8 mg/dL (Normal) :43 PARATHORMONE (21506) Comments: PATIENT NOT FASTINGPERFORMED BY: Financial Transaction ServicesScheurer Hospital6370 [facility] [id number] PTH, Intact 22 pg/mL (Normal) Range: 15-65 86-Rra-81913:56 Metabolic Panel, Basic Comments: drawn next ; PATIENT NOT FASTINGPERFORMED BY: Financial Transaction ServicesScheurer Hospital6370 [facility] [id number] Information: [id number] (53408) Calcium, Serum 10.5 mg/dL (Abnormal) Range: 8.6-10.2 [...] Glucose, Serum 113 mg/dL (Abnormal) Range: 65-99 8-Wnx-028720:50 METABOLIC PANEL, Comments: PATIENT NOT FASTINGPERFORMED BY: FireDrillMeChristian Health Care CenterHgwpuf9189 [facility] [id number] Information: [id number] COMPREHENSIVE (90370) ALT (SGPT) 22 [iU]/L (Normal) Range: 0-32 [...] (Abnormal) Range: 65-99 :13 HgA1C , Office (44408) HgA1C , Office 6.5 % (Normal) Range: 4.6 - 7.1 :13 Blood Glucose , Office (36368) Blood Glucose , Office 163 (Normal) :41 [...] CREATININE RATIO Comments: PATIENT WAS FASTINGPERFORMED BY: [facility] [id number] (07206) AND (16885) Microalb/Creat Ratio 6.2 {mg/g_creat} (Normal) Range: 0.0-30.0 Microalbumin, Urine 2.2 ug/mL (Normal) Range: 0.0-17.0 Creatinine, Urine 35.7 mg/dL (Normal) Range: 15.0-278.0 :38 URINALYSIS (39295) Comments: PATIENT WAS FASTINGPERFORMED BY: [facility]At[facility] [id number] Microscopic Examination MICRON (Normal) Comments: Microscopic follows if indicated. Nitrite, Urine Negative (Normal) Urobilinogen,Semi-Qn 0.2 mg/dL (Normal) Range: 0.0-1.9 Bilirubin Negative (Normal) Occult Blood Negative (Normal) Ketones Negative (Normal) Glucose Negative (Normal) Protein Negative (Normal) WBC Esterase Negative (Normal) Appearance Clear (Normal) Urine-Color Yellow (Normal) pH 7.5 (Normal) Range: 5.0-7.5 Specific [place] 1.010 (Normal) Range: 1.005-1.030 :38 CALCIFEDIOL (84759) Comments: PATIENT WAS FASTINGPERFORMED BY: LabScheurer Hospital6370 [facility] [id number] Vitamin D, 25-Hydroxy 44.7 ng/mL (Normal) Range: 30.0-100.0 Comments: Vitamin D deficiency has been defined by the [place] ofTrihealth Good Samaritan Hospitalcine and an Endocrine Society practice guideline as alevel of serum 25-OH vitamin D less than 20 ng/mL (1,2).The Endocrine Society went on to further define vitamin Dinsufficiency as a level between 21 and 29 ng/mL (2).1. IOM ([place] of [place]). 2010. Dietary reference intakes for calcium and D. [place]: The National Academies Press.2. Stephon MF, Ana ROY, Alka ROMERO, et al. Evaluation, treatment, and prevention of vitamin D deficiency: an Endocrine Society clinical practice guideline. JCEM. 2010; 96(7):1911-30. :38 TSH (24056) Comments: PATIENT WAS FASTINGPERFORMED BY: LabCoChristian Health Care CenterDtmgva1449 [facility] [id number] TSH 2.930 {uIU/mL} (Normal) Range: 0.450-4.500 :38 CBC with manual diff Comments: PATIENT WAS FASTINGPERFORMED BY: LabScheurer Hospital6370 [facility] [id number] Information: [id number] (04797) Immature Grans (Abs) 0.0 {x10E3/uL} (Normal) Range: [...] Panel, Comprehensive Comments: PATIENT WAS FASTINGPERFORMED BY: LabCoChristian Health Care CenterRgndki8619 [facility] [id number] (81364) ALT (SGPT) 22 [iU]/L (Normal) Range: 0-32 [...] mg/dL (Normal) Range: 65-99 :38 Lipid Panel (18447) Comments: PATIENT WAS FASTINGPERFORMED BY: OLX70 [facility] [id number] LDL/HDL Ratio 1.2 {ratio_units} (Normal) Range: 0.0-3.2 LDL Cholesterol Calc 53 mg/dL (Normal) Range: 0-99 VLDL Cholesterol Yamilka 27 mg/dL (Normal) Range: 5-40 HDL Cholesterol 45 mg/dL (Normal) Comments: According to ATP-III Guidelines, HDL-C >59 mg/dL is considered anegative risk factor for CHD. Triglycerides 135 mg/dL (Normal) Range: 0-149 Cholesterol, Total 125 mg/dL (Normal) Range: 100-199 :05 LIPID PANEL (59134) Comments: PATIENT WAS FASTINGPERFORMED BY: [employer] Qracjj2455 [facility] [id number] Information: [id number] LDL/HDL Ratio 1.6 {ratio_units} (Normal) Range: 0.0-3.2 LDL Cholesterol Calc 76 mg/dL (Normal) Range: 0-99 VLDL Cholesterol Yamilka 30 mg/dL (Normal) Range: 5-40 HDL Cholesterol 49 mg/dL (Normal) Comments: According to ATP-III Guidelines, HDL-C >59 mg/dL is considered anegative risk factor for CHD. Triglycerides 148 mg/dL (Normal) Range: 0-149 Cholesterol, Total 155 mg/dL (Normal) Range: 100-199 27-Ttz-340527:43 FECAL OCCULT HGB ASSAY- tubes sent home (52473) FECAL OCCULT HGB ASSAY, QUAL, 1-3 SIMULTANEOU negative (Normal) 19-Bqc-946239:40 Nuclear Stress Test Radiology Report See Note [...] The patient was injected with 31.6 mCi geXq22n Cardiolite and subsequently stress SPECT Cardiolite nuclear [...] 07/29/13 1751 Sign by: Yosi Merchant MD 41-Rzp-01420:52 KNEE 1 OR 2 VIEWS Radiology Report [...] Ferguson M.D.July 29, 2013 at 5:00:35 PM [id number] Signed RU/RU If you are the referring phys ician and would like to consult with theradiologist who provided this interpretation, please contact Alejandro Horton at [phone]. If this radiologist is unavailable, youwillbe directed to [facility] radiologist to assist. If you are a patient with a question regarding this report, pleasecontactyour referring physician directly. Professional Interpretation Provided By: [employer], Phone , These documents contain legally protected [...] on 07/29/131714 Si gn by: Ag Ferguson 09-Sax-76645:52 KNEE 1 OR 2 VIEWS Radiology Report [...] Ferguson M.D.July 29, 2013 at 5:02:45 PM [phone] Signed RU/RU If you are the referring physician and would like to consult with therad iologist who provided this interpretation, please contact Alejandro Horton at [phone]. If this radiologist is unavailable, youwillbe directed to another radiologist to assist. If you are a sandra ent with a question regarding this report, pleasecontactyour referring physician directly. Professional Interpretation Provided By: [employer], Phone , These documents con tain legally [...] Ferguson on 07/29/131716 Sign by: Ag Ferguson 01-Got-656558:27 CCP ANTIBODY (32135) Comments: PATIENT NOT FASTINGPERFORMED BY: [employer]6370 [facility] [id number] BY: FireDrillMe[address] [id number] CCP Antibodies IgG/IgA 5 {units} (Normal) Range: 0-19 Comments: Negative <20 Weak positive 20 - 39 Moderate positive 40 - 59 Strong positive >59 40-Hhr-402836:27 SED RATE ERYTHROCYTE Comments: PATIENT NOT FASTINGPERFORMED BY: [employer] Rjrnvn1716 [facility] [id number] BY: FireDrillMe[address] [id number] (79509) Sedimentation Rate-Westergren 2 mm/h (Normal) Range: 0-40 90-Cta-360874:27 C-REACTIVE PROTEIN Comments: PATIENT NOT FASTINGPERFORMED BY: [employer] Xootny8039 [facility] [id number] BY: [employer] [id number] (27345) C-Reactive Protein, Quant 2.1 mg/L (Normal) Range: 0.0-4.9 :27 TSH (43558) Comments: PATIENT NOT FASTINGPERFORMED BY: LabCoSamuel [place] 5783370 [facility] [id number] BY: [address] [id number] TSH 1.630 {uIU/mL} (Normal) Range: 0.450-4.500 63-Grn-832585:27 RHEUMATOID FACTOR-QUANT Comments: PATIENT NOT FASTINGPERFORMED BY: LabAsh[place] 93676[address] [facility] [id number] BY: [address] [id number] (15319) RA Latex Turbid. 9.7 {IU/mL} (Normal) Range: 0.0-13.9 :27 HEIDI (ANTINUCLEAR ANTIBODY) Comments: PATIENT NOT FASTINGPERFORMED BY: LabAsh[place] 9367670 [facility] [id number] BY: [address] [id number] (81860) HEIDI Direct Negative (Normal) : CBC WITH MANUAL DIFF Comments: PATIENT NOT FASTINGPERFORMED BY: [place] [address]0270 [facility] [id number] BY: [address] [id number] Inf ormation: [id number] (42015) Immature Grans (Abs) 0.0 {x10E3/uL} (Normal) Range: [...] 3.77-5.28 WBC 8.5 {x10E3/uL} (Normal) Range: 4.0-10.5 59-Eoz-698618:27 METABOLIC PANEL, Comments: PATIENT NOT FASTINGPERFORMED BY: [facility] Qtzlnj1734 [facility] [id number] BY: [facility] [address] [id number] [facility] (68911) ALT (SGPT) 24 [iU]/L (Normal) Range: 0-32 [...] (Normal) Range: 65-99 :22 HgA1C , Office (93475) HgA1C , Office 5.9 % (Normal) Range: 4.6 - 7.1 :22 Blood Glucose , Office (39775) Blood Glucose , Office 148 (Normal) Comments: non fasting :44 MAGNESIUM (46892) Comments: copy to dr jose mayes; PATIENT NOT FASTINGPERFORMED BY: Gallus BioPharmaceuticalsChristian Health Care CenterAqtgbu6900 [facility] [id number] Magnesium, Serum 2.0 mg/dL (Normal) Range: 1.6-2.6 4-Pql-186644:44 Metabolic Panel, Basic Comments: copy to dr jose Mayes; PATIENT NOT FASTINGPERFORMED BY: [employer] BioPharmaceuticalsChristian Health Care CenterYjlemw9763 [facility] [id number] Information: [id number] (14343) Calcium, Serum 10.1 mg/dL (Normal) Range: 8.6-10.2 [...] Glucose, Serum 141 mg/dL (Abnormal) Range: 65-99 88-Oak-747835:10 PTT (Activated Partial Comments: PATIENT NOT FASTINGPERFORMED BY: [place] [address]0270 [facility] [id number] Thromboplastin Time) (13650) aPTT 30 {sec} (Normal) Range: 24-33 Comments: This test has not been validated for monitoring unfractionated heparintherapy. aPTT-based therapeutic ranges for unfractionated heparintherapy have not been established. For general guidelines onHeparin monitoring, refer to the [facility] Directory of Services. 78-Ecp-141926:10 PT (Prothrobim Time) Comments: PATIENT NOT FASTINGPERFORMED BY: [place] [address] [facility] [id number] Information: [id number] (65795) Prothrombin Time 10.4 {sec} (Normal) Range: 9.1-12.0 INR 1.0 (Normal) Range: 0.8-1.2 Comments: Reference interval is for non-anticoagulated patients. . Suggested INR therapeutic range for Vitamin K anta gonist therapy: Standard Dose (moderate intensity therapeutic range): 2.0 - 3.0 Higher intensity therapeutic range 2.5 - 3.5 25-Dqu-364534:10 Potassium Serum (08290) Comments: PATIENT NOT FASTINGPERFORMED BY: [place] [address]0270 [facility] [id number] Potassium, Serum 3.9 mmol/L (Normal) Range: 3.5-5.2 99-Tsg-819661:10 Magnesium (84033) Comments: PATIENT NOT FASTINGPERFORMED BY: [place] 6[address]0 [facility] [id number] Magnesium, Serum 1.9 mg/dL (Normal) Range: 1.6-2.6 :59 HgA1C , Office (34286) HgA1C , Office 5.7 % (Normal) Range: 4.6 - 7.1 :59 Blood Glucose , Office (35046) Blood Glucose , Office 149 (Normal) :08 TSH (36986) Comments: PATIENT WAS FASTINGPERFORMED BY: [employer] [place] [facility] [id number] TSH 2.390 {uIU/mL} (Normal) Range: 0.450-4.500 :08 URINALYSIS, W/ MICRO (33737) Comments: PATIENT WAS FASTINGPERFORMED BY: [employer] [place] [facility] [id number] Microscopic Examination See below: (Normal) Microscopic Examination MICRON (Normal) Comments: Microscopic follows if indicated. Nitrite, Urine Negative (Normal) Urobilinogen,Semi-Qn 0.2 mg/dL (Normal) Range: 0.0-1.9 Bilirubin Negative (Normal) Occult Blood Negative (Normal) Ketones Negative (Normal) Glucose Negative (Normal) Protein Negative (Normal) Appearance Clear (Normal) WBC Esterase Negative (Normal) pH 7.5 (Normal) Range: 5.0-7.5 Specific [place] 1.013 (Normal) Range: 1.005-1.030 Urine-Color Yellow (Normal) :08 MICROALBUMIN: CREATININE RATIO Comments: PATIENT WAS FASTINGPERFORMED BY: [employer] [place] [facility] [id number] (08697) AND (49889) Microalb/Creat Ratio 3.8 {mg/g_creat} (Normal) Range: 0.0-30.0 Microalbumin, Urine 2.9 ug/mL (Normal) Range: 0.0-17.0 Creatinine, Urine 77.3 mg/dL (Normal) Range: 15.0-278.0 :08 METABOLIC PANEL, COMPREHENSIVE Comments: PATIENT WAS FASTINGPERFORMED BY: [employer] [place] [facility] [id number] (64900) ALT (SGPT) 17 [iU]/L (Normal) Range: 0-32 [...] mg/dL (Abnormal) Range: 65-99 01-Apr-20138:08 LIPID PANEL (97711) Comments: PATIENT WAS FASTINGPERFORMED BY: LabCoChristian Health Care CenterIprwpg1666 [facility] [id number] LDL/HDL Ratio 2.1 {ratio_units} (Normal) Range: 0.0-3.2 [...] DIFF Comments: PATIENT WAS FASTINGPERFORMED BY: PRATIMA WildfireSSM DePaul [facility] Center [id number] Information: ADD [id number] AND DRAW FEE [id number] (33253) Immature Grans (Abs) 0.0 {x10E3/uL} (Normal) Range: [...] Examination Comments: PATIENT WAS FASTINGPERFORMED BY: PRATIMA [employer] [facility] [id number] Bacteria None seen (Normal) Mucus Threads Present (Normal) Epithelial Cells (non renal) 0-10 {/hpf} (Normal) Range: 0 - 10 RBC 0-3 {/hpf} (Normal) Range: 0 - 3 WBC 0-5 {/hpf} (Normal) Range: 0 - 5 :49 HgA1C , Office (77279) HgA1C , Office 5.8 % (Normal) Range: 4.6 - 7.1 :49 Blood Glucose , Office (77241) Blood Glucose , Office 142 (Normal) 9-Frg-281895:13 ALFONZO CULTURE-OTHER (76364) Comments: PATIENT NOT FASTINGPERFORMED BY: [place] [address] [facility] [id number] Information: SRC:THRT [id number] Result 1 RRF (Normal) Comments: Routine respiratory hermelindo Upper Respiratory Culture Final report (Normal) 1-Pax-833066:30 Rapid Strep Test, Office (96140) Rapid Strep Test, Office Negative (Normal) 94-Xwh-062937:36 URIC ACID BLOOD (04915) Comments: PATIENT NOT FASTINGPERFORMED BY: Financial Transaction ServicesScheurer Hospital6370 [facility] [id number] Information: [id number] Uric Acid, Serum 6.6 mg/dL (Normal) Range: 2.5-7.1 Comments: Therapeutic target for gout patients: <6.0 :29 Blood Glucose , Office (94806) Blood Glucose , Office 128 (Normal) :29 HgA1C , Office (16680) HgA1C , Office 5.5 % (Normal) Range: 4.6 - 7.1 :11 HgA1C , Office (74455) HgA1C , Office 5.5 % (Normal) Range: 4.6 - 7.1 31-Lzv-024196:11 Blood Glucose , Office (99002) Blood Glucose , Office 127 (Normal) :35 Microscopic Examination Comments: PATIENT WAS FASTINGPERFORMED BY: [place] [id number] [facility] [id number] Bacteria Few (Normal) Mucus Threads Present (Normal) Cast Type Hyaline casts (Normal) Casts Present {/lpf} (Abnormal) Epithelial Cells (non renal) 0-10 {/hpf} (Normal) Range: 0 - 10 RBC 0-3 {/hpf} (Normal) Range: 0 - 3 WBC 6-10 {/hpf} (Abnormal) Range: 0 - 5 :35 TSH (42682) Comments: PATIENT WAS FASTINGPERFORMED BY: FireDrillMeChristian Health Care CenterZxczkw8105 [facility] [id number] TSH 1.550 {uIU/mL} (Normal) Range: 0.450-4.500 :35 URINALYSIS, W/ MICRO (76600) Comments: PATIENT WAS FASTINGPERFORMED BY: FireDrillMeCarrie Tingley HospitalKvgwed3281 [facility] [id number] Microscopic Examination See below: (Normal) Nitrite, Urine Negative (Normal) Urobilinogen,Semi-Qn 0.2 mg/dL (Normal) Range: 0.0-1.9 Bilirubin Negative (Normal) Occult Blood Negative (Normal) Ketones Negative (Normal) Glucose Negative (Normal) Protein Negative (Normal) WBC Esterase 1+ (Abnormal) Appearance Clear (Normal) Urine-Color Yellow (Normal) pH 6.5 (Normal) Range: 5.0-7.5 Specific [place] 1.019 (Normal) Range: 1.005-1.030 :35 MICROALBUMIN: CREATININE RATIO Comments: PATIENT WAS FASTINGPERFORMED BY: FireDrillMeCarrie Tingley HospitalPcydxq2540 [facility] [id number] (98005) AND (63833) Microalb/Creat Ratio 7.8 {mg/g_creat} (Normal) Range: 0.0-30.0 Microalbumin, Urine 17.2 ug/mL (Abnormal) Range: 0.0-17.0 Creatinine, Urine 220.8 mg/dL (Normal) Range: 15.0-278.0 :35 METABOLIC PANEL, COMPREHENSIVE Comments: PATIENT WAS FASTINGPERFORMED BY: FireDrillMeChristian Health Care CenterNepkif4000 [facility] [id number] (55283) ALT (SGPT) 17 [iU]/L (Normal) Range: 0-40 [...] Glucose, Serum 97 mg/dL (Normal) Range: 65-99 43-Cwa-98340:35 LIPID PANEL (15783) Comments: PATIENT WAS FASTINGPERFORMED BY: LabCoChristian Health Care CenterCbaeta2007 [facility] [id number] LDL/HDL Ratio 1.0 {ratio_units} (Normal) Range: 0.0-3.2 [...] MANUAL DIFF Comments: PATIENT WAS FASTINGPERFORMED BY: [facility]6370 [facility] [id number] Information: [id number] (97157) Immature Grans (Abs) 0.0 {x10E3/uL} (Normal) Range: [...] (Normal) Range: 4.0-10.5 :33 HgA1C , Office (85561) HgA1C , Office 5.7 % (Normal) Range: 4.6 - 7.1 :33 Blood Glucose , Office (37146) Blood Glucose , Office 115 (Normal) :50 [...] 07/19/11 0430 Sign by: Marciano Fountain MD 46-Yls-175119:50 PARATHORMONE (62384) Comments: PATIENT NOT FASTINGPERFORMED BY: [place] Wmtggj8840 [facility]UNC [facility] [id number] PTH, Intact 20 pg/mL (Normal) Range: 15-65 57-Gnf-487354:50 Metabolic Panel, Comments: PATIENT NOT FASTINGPERFORMED BY: [place] Zdwudk3654 [facility]inationAt[facility] [id number] Information: [id number] Comprehensive (52129) ALT (SGPT) 23 [iU]/L (Normal) Range: 0-40 [...] Glucose, Serum 94 mg/dL (Normal) Range: 65-99 59-Aem-320781:06 Metabolic Panel, Comments: PATIENT NOT FASTINGPERFORMED BY: LabCoChristian Health Care CenterYbsrsh4951 [facility] [id number] Information: [id number] Comprehensive (98020) ALT (SGPT) 30 [iU]/L (Normal) Range: 0-40 [...] Glucose, Serum 92 mg/dL (Normal) Range: 65-99 98-Qoi-38604:17 METABOLIC PANEL, Comments: PATIENT WAS FASTINGPERFORMED BY: [facility] Jpibpo8351 [facility] [id number] Information: [id number] COMPREHENSIVE (54245) ALT (SGPT) 27 [iU]/L (Normal) Range: 0-40 [...] mg/dL (Normal) Range: 65-99 :17 LIPID PANEL (22263) Comments: PATIENT WAS FASTINGPERFORMED BY: [facility] Jezzqy4541 [place] [id number] LDL/HDL Ratio 1.1 {ratio_units} (Normal) Range: 0.0-3.2 LDL Cholesterol Calc 46 mg/dL (Normal) Range: 0-99 VLDL Cholesterol Yamilka 28 mg/dL (Normal) Range: 5-40 HDL Cholesterol 41 mg/dL (Normal) Comments: According to ATP-III Guidelines, HDL-C >59 mg/dL is considered anegative risk factor for CHD. Triglycerides 140 mg/dL (Normal) Range: 0-149 Cholesterol, Total 115 mg/dL (Normal) Range: 100-199 :38 Blood Glucose , Office (76910) Blood Glucose , Office 132 (Normal) :38 HgA1C , Office (34387) HgA1C , Office 5.7 % (Normal) Range: 4.6 - 7.1 65-Uvg-318115:01 BILAT SCRN DIGITAL & CAD Radiology Report [...] 1051 S ign by: Anam Larios MD 15-Nyi-098320:01 DEXA BONE DENSITY STUDY (HP) Radiology Report [...] FECAL OCCULT HGB ASSAY- tubes sent home (35146) FECAL OCCULT HGB ASSAY, QUAL, 1-3 SIMULTANEOU negative (Normal) :32 HgA1C , Office (84633) HgA1C , Office 8.6 % (Abnormal) Range: 4.6 - 7.1 :32 Blood Glucose , Office (43214) Blood Glucose , Office 324 (Normal) :30 [...] 200 mg/dLsuggests DIABETES MELLITUS per A.D.A. criteria. 20-End-94628:30 COMPLETE UA MUCUS, URINE 0 SEEN {/hpf} [...] {uIU/mL} (Normal) Range: 0.358-3.74 :45 CULTURE, SPUTUM (39047) Comments: PATIENT NOT FASTINGPERFORMED BY: LabCoChristian Health Care CenterYtgqzx9631 [facility] [id number] Information: SRC:[facility] [id number] Result 1 RRF (Normal) Comments: Routine respiratory hermelindo Lower Respiratory Culture Final report (Normal) :48 HgA1C , Office (00627) HgA1C , Office 5.8 % (Normal) Range: 4.6 - 7.1 :48 Blood Glucose , Office (79966) Blood Glucose , Office 124 (Normal) :20 CHEST WITH CONTRAST Radiology Report See Note (Normal) Comments: Exam Number: [id number] CLINICAL:Sarcoidosis, shortness of breath, wheezing CT CHEST [...] allunchanged. Previous cholecystectomy? Reported By: PO MANCILLA 63-Wnd-37670:15 SERUM CRE & GFR EST GFR - AA 65 mL/min (Normal) EST GFR 54 mL/min (Abnormal) CREAT,SERUM 1.1 mg/dL (Abnormal) Range: 0.6-1.0 83-Czr-320319:42 CHEST, PA AND LATERAL (MT) Radiology Report See Note (Normal) Comments: Exam Number: [id number] CHEST X- RAY PA AND LATERAL VIEWS HISTORY:Pneumonitis due to food inhalation/aspiration. FINDINGS:PA and lateral views of the chest compared to previous chest x-rayexam ination of O ri2008. There is moderate-degree ofdextroscoliotic curvature thoracolumbar spine. Mild cardiomegaly.No definite evidence of focal pulmonary infiltrates or effusions arenoted. No significant interval change from previous exam. Nopneumothorax. IMPRESSION:1. No acute pulmonary findings. No significant interval changesfrom previous chest x-ray examination of September 28, 2009. Mildcardiomeg zunilda. There is moderate dextroscoliotic curvature. Reported By: Joseph Núñez 51-Edc-481019:15 MAGNESIUM (54076) Comments: PATIENT NOT FASTINGPERFORMED BY: LabCoChristian Health Care CenterGgdflz9915 [facility] [id number] Magnesium, Serum 2.1 mg/dL (Normal) Range: 1.6-2.6 89-Egg-575919:15 Renal function Panel Comments: PATIENT NOT FASTINGPERFORMED BY: LabCoChristian Health Care CenterJgempr8792 [facility] [id number] Information: [id number] (69596) Albumin, Serum 4.7 g/dL (Normal) Range: 3.5-5.5 [...] (Abnormal) Range: 65-99 :46 HgA1C , Office (70542) HgA1C , Office 6.0 % (Normal) Range: 4.6 - 7.1 :46 Blood Glucose , Office (93001) Blood Glucose , Office 140 (Normal) :27 [...] T PROT 7.8 g/dL (Normal) Range: 6.4-8.2 31-Duw-860612:11 CBC with manual diff Comments: PATIENT NOT FASTINGPERFORMED BY: [facility] Sxyhzf7955 [facility] [id number] Information: [id number] (23824) Baso (Absolute) 0.0 {x10E3/uL} (Normal) Range: 0.0-0.2 [...] 3.80-5.10 WBC 9.0 {x10E3/uL} (Normal) Range: 4.0-10.5 75-Ety-939897:55 Microscopic Examination Comments: PATIENT WAS FASTINGPERFORMED BY: Sarah [employer]Science Jvk3498 [facility] [place], [facility] [id number] BY: CB [facility] Oxjrca5680 [facility] [id number] Bacteria Few (Normal) Cast Type Hyaline casts (Normal) Mucus Threads Present (Normal) Casts Present {/lpf} (Abnormal) Epithelial Cells (non renal) 0-10 {/hpf} (Normal) Range: 0 - 10 RBC 0-3 {/hpf} (Normal) Range: 0 - 3 WBC 0-5 {/hpf} (Normal) Range: 0 - 5 29-Igx-012903:34 HgA1C , Office (57741) HgA1C , Office 5.9 % (Normal) Range: 4.6 - 7.1 18-Ypc-417665:34 Blood Glucose , Office (92176) Blood Glucose , Office 140 (Normal) 60-Koi-135615:55 TSH (43949) Comments: PATIENT WAS FASTINGPERFORMED BY: [facility] HospitalEmerge Studio[address] [id number] BY: [facility] HospitalStartXChristian Health Care CenterIuteag5172 [facility] [id number] TSH 0.541 {uIU/mL} (Normal) Range: 0.450-4.500 Comments: Effective December 24, 2009, TSH reference interval for11 - 19 years will be changing to: 0.450 - 4.500 uIU/mLReference interval for all other ages will NOT be affected. 52-Yvh-541313:55 URINALYSIS, W/ MICRO Comments: PATIENT WAS FASTINGPERFORMED BY: [facility] HospitalEmerge Studio[address] [id number] BY: FireDrillMeChristian Health Care CenterOkjmlc3833 [facility] [id number] (21122) Bilirubin Negative (Normal) Microscopic Examination MICRON (Normal) Comments: Microscopic follows if indicated. Microscopic Examination See below: (Normal) Nitrite, Urine Negative (Normal) Occult Blood Negative (Normal) Urobilinogen,Semi-Qn 0.2 mg/dL (Normal) Range: 0.0-1.9 Glucose Negative (Normal) Ketones Negative (Normal) Protein Negative (Normal) WBC Esterase Negative (Normal) Appearance Clear (Normal) pH 6.0 (Normal) Range: 5.0-7.5 Specific [place] 1.020 (Normal) Range: 1.005-1.030 Urine-Color Yellow (Normal) 54-Xug-589636:55 MICROALBUMIN: CREATININE Comments: PATIENT WAS FASTINGPERFORMED BY: [facility] HospitalEmerge Studio[address] [id number] BY: [facility]6370 [facility] [id number] RATIO (06933) AND (57911) Microalb/Creat Ratio 7.1 {mg/g_creat} (Normal) Range: 0.0-30.0 Microalbumin, Urine 8.6 ug/mL (Normal) Range: 0.0-17.0 Creatinine, Urine 120.9 mg/dL (Normal) Range: 15.0-278.0 99-Geo-243206:55 METABOLIC PANEL, Comments: PATIENT WAS FASTINGPERFORMED BY: Sarah [employer] Xkp2421 [place] manuelTwin City Hospitaleitian [place] [id number] BY: PRATIMA [facility] Ixkoxh7131 [place] [id number] COMPREHENSIVE (43619) ALT (SGPT) 24 [iU]/L (Normal) Range: 0-40 [...] Glucose, Serum 105 mg/dL (Abnormal) Range: 65-99 76-Mnk-866779:55 LIPOPROTEIN, BLD, BY NMR Comments: PATIENT WAS FASTINGPERFORMED BY: S7 [employer] Jcy3823 [facility] [place], [facility] [id number] BY: PRATIMA LabSche[facility] Hospital6370 [facility] [id number] Information: [id number] (18619) Large VLDL-P 2.9 nmol/L (Abnormal) Comments: Small [...] 1599High 1600 - 2000Very high > 2000. 59-Oxh-574629:55 CBC WITH MANUAL DIFF Comments: PATIENT WAS FASTINGPERFORMED BY: S7 [employer] Ncu1427 [facility] [place], [facility] [id number] BY: LabSche[facility] Hospital6370 [facility] [id number] (77937) Baso (Absolute) 0.0 {x10E3/uL} (Normal) Range: 0.0-0.2 [...] kidney disease, stage III (moderate) : Reviewed Environmental Protection Specialist Letter Indication: Chronic kidney disease, stage III (moderate) Chronic kidney disease, stage III (moderate) : Reviewed Lab Indication: Chronic kidney disease, stage III (moderate) Hypercholesteremia : Cholesterol mgmt Indication: Hypercholesteremia Atrial fibrillation : Continue Current Prescription(s) Indication: Atrial fibrillation Atrial fibrillation : Reviewed Environmental Protection Specialist Letter Indication: Atrial fibrillation Hypertension with renal [...] KIDNEY DISEASE, STAGE IV (SEVERE) : Reviewed Environmental Protection Specialist Letter Indication: CHRONIC KIDNEY DISEASE, STAGE IV (SEVERE) Diabetic autonomic neuropathy associated with type 2 diabetes mellitus : Follow up in 3 months Indication: Diabetic autonomic neuropathy associated with type 2 diabetes mellitus Chronic kidney disease, stage III (moderate) : Reviewed Environmental Protection Specialist Letter Indication: Chronic kidney disease, stage III [...] sequela Aspiration of food, sequela : Reviewed Environmental Protection Specialist Letter- sibila and bronch Indication: Aspiration of [...] Diagnostic Tests Indication: Sarcoidosis Sarcoidosis : Reviewed Environmental Protection Specialist Letter Indication: Sarcoidosis DM (diabetes mellitus), type 1, uncontrolled, with renal complications : Follow up in 3 months Indication: DM (diabetes mellitus), type 1, uncontrolled, with renal complications DM (diabetes mellitus), type 1, uncontrolled, with renal complications : Reviewed Lab Indication: DM (diabetes mellitus), type 1, uncontrolled, with renal complications Asthma : Continue Current Prescription(s) Indication: Asthma Asthma : Reviewed Environmental Protection Specialist Letter Indication: Asthma CHRONIC KIDNEY DISEASE, STAGE IV (SEVERE) : Reviewed Environmental Protection Specialist Letter Indication: CHRONIC KIDNEY DISEASE, STAGE IV [...] GERD (gastroesophageal reflux disease) Asthma : Reviewed Environmental Protection Specialist Letter Indication: Asthma Asthma : Continue Current Prescription(s) Indication: Asthma DM (diabetes mellitus), type 1, uncontrolled, with renal complications : Follow up in 3 months- do ekg Indication: DM (diabetes mellitus), type 1, uncontrolled, with renal complications Chronic kidney disease, stage III (moderate) : Reviewed Environmental Protection Specialist Letter Indication: Chronic kidney disease, stage III [...] typeII,controlled, renal comp Atrial fibrillation : Reviewed Environmental Protection Specialist Letter Indication: Atrial fibrillation Hypercholesteremia : Reviewed [...] Indication: Impacted fracture Impacted fracture : Reviewed Environmental Protection Specialist Letter Indication: Impacted fracture Hypertension with renal [...] kidney disease, stage III (moderate) : Reviewed Environmental Protection Specialist Letter- Dr Ribeiro Indication: Chronic kidney disease, [...] kidney disease, stage III (moderate) : Reviewed Environmental Protection Specialist Letter Indication: Chronic kidney disease, stage III [...] kidney disease, stage III (moderate) : Reviewed Environmental Protection Specialist Letter Indication: Chronic kidney disease, stage III [...] kidney disease, stage III (moderate) : Reviewed Environmental Protection Specialist Letter Indication: Chronic kidney disease, stage III [...] kidney disease, stage III (moderate) : Reviewed Environmental Protection Specialist Letter-- dr ribeiro Indication: Chronic kidney disease, [...] kidney disease, stage III (moderate) : Reviewed Environmental Protection Specialist Letter: Dr ribeiro Indication: Chronic kidney disease, stage III (moderate) Diabetes mellitus type II, controlled : *Diabetes Education Indication: Diabetes mellitus type II, controlled Hypercholesteremia : Cholesterol mgmt Indication: Hypercholesteremia Hypertension with renal disease : Diet, Exercise, and Wt loss Indication: Hypertension with renal disease Hypertension with renal disease : HTN/CAD Red Flags Indication: Hypertension with renal disease Aspiration pneumonia : Reviewed Environmental Protection Specialist Letter Indication: Aspiration pneumonia Aspiration pneumonia : [...] kidney disease, stage III (moderate) : Reviewed Environmental Protection Specialist Letter Indication: Chronic kidney disease, stage III [...] kidney disease, stage III (moderate) : Reviewed Environmental Protection Specialist Letter- w/u in progress Indication: Chronic kidney [...] GERD (gastroesophageal reflux disease) Planned Observations CALCIFIDIOL (66518) VIT D 25Indication: Vitamin D deficiency On: :22 Request TSH (69541)Indication: Diabetic autonomic neuropathy associated with type 2 diabetes mellitus On: :21 Request URINALYSIS, W/ MICRO (00068)Indication: Hypertension with renal disease On: :21 Request MICROALBUMIN: CREATININE RATIO (72963) AND (36576)Indication: Hypertension with renal disease On: :21 Request METABOLIC PANEL, COMPREHENSIVE (06152)Indication: Hypertension with renal disease On: :21 Request LIPOPROTEIN, BLD, BY NMR (67286)Indication: Hypertension with renal disease On: :21 Request CBC W/AUTO DIFF WBC (91598)Indication: Hypertension with renal disease On: :21 Request METABOLIC PANEL, COMPREHENSIVE (75715)Indication: Medication monitoring encounter On: 9-Ajo-130115:10 Request Parathyroid Hormone-related Peptide (PTH-rP) (01605)Indication: Hypercalcemia On: :40 Request Comments: send copy dr ribeiro CALCIUM SERUM (88622)Indication: Hypercalcemia On: :40 Request Comments: send copy to dr ribeiro ELECTROLYTES, 24 HOUR URINE (88916)Indication: Hypercalcemia On: 7-Niv-969442:49 Request POTASSIUM SERUM (77468)Indication: Hypercalcemia On: 9-Low-282849:48 Request Parathyroid Hormone-related Peptide (PTH-rP) (45870)Indication: Hypercalcemia On: :48 Request CALCIUM SERUM (25882)Indication: Hypercalcemia On: :48 Request CALCIUM URINE 86903 (45733)Indication: Hypercalcemia On: :06 Request Comments: 24 hr urine ELECTROLYTES, 24 HOUR URINE (94646)Indication: Hypercalcemia On: :06 Request FECAL OCCULT- Tubes sent home (68323)Indication: Encounter for screening for malignant neoplasm of colon (Renamed from Special screening for malignant neoplasms, colon) On: 97-Ogh-883084:47 Request Lipid Panel (76371)Indication: Hypercholesteremia On: 5-Ztq-785997:02 Request CALCIFIDIOL (32020) VIT D 25Indication: FATIGUE On: :38 Request Folate (81811)Indication: FATIGUE On: :38 Request VITAMIN B-12 (CYANOCOBALAMIN) (26857)Indication: FATIGUE On: :38 Request TSH (54321)Indication: FATIGUE On: :38 Request SED RATE ERYTHROCYTE (89401)Indication: FATIGUE On: :38 Request RHEUMATOID FACTOR-QUANT (25293)Indication: FATIGUE On: :38 Request METABOLIC PANEL, COMPREHENSIVE (14235)Indication: FATIGUE On: :38 Request C-REACTIVE PROTEIN (92723)Indication: FATIGUE On: :38 Request CBC (AUTO) (94107)Indication: FATIGUE On: :38 Request HEIDI (ANTINUCLEAR ANTIBODY) (98863)Indication: FATIGUE On: :38 Request CULTURE, SPUTUM (35095)Indication: Cough On: 4-Mwt-258619:08 Request Metabolic Panel, Comprehensive (29133)Indication: Diabetes mellitus type 2, uncontrolled, without complications On: 90-Gkn-741309:21 Request FECAL OCCULT HGB ASSAY- tubes sent home (16459)Indication: Encounter for Medicare annual wellness exam On: 91-Umh-47462:58 Request CALCIFIDIOL (07095) VIT D 25Indication: Vitamin D deficiency On: 10-Ldw-34452:48 Request MAGNESIUM (30196)Indication: Hypomagnesemia On: 95-Amt-72146:47 Request URINE ALFONZO CULTURE (KAITLIN COL COUNT) (36999)Indication: Abdominal pain On: 16-Vek-952832:37 Request Urinalysis, Office (95068)Indication: Abdominal pain On: 08-Vpw-829372:37 Request FECAL OCCULT HGB ASSAY- tubes sent home (89223)Indication: Encounter for Medicare annual wellness exam On: 15-Xlr-15878:56 Request Metabolic Panel, Basic (41914)Indication: Chronic kidney disease, stage III (moderate) On: 00-Zkg-104502:11 Request POTASSIUM SERUM (08975)Indication: Hypokalemia On: 91-Tcv-11558:13 Request TSH (19605)Indication: Diabetes mellitus type II, controlled On: : Request URINALYSIS, W/ MICRO (72585)Indication: Diabetes mellitus type II, controlled On: 3-Qhb-021428:01 Request MICROALBUMIN: CREATININE RATIO (28807) AND (50723)Indication: Diabetes mellitus type II, controlled On: 6-Xko-732044:01 Request METABOLIC PANEL, COMPREHENSIVE (32059)Indication: Diabetes mellitus type II, controlled On: : Request LIPID PANEL (36685)Indication: Diabetes mellitus type II, controlled On: : Request CBC WITH MANUAL DIFF (07510)Indication: Diabetes mellitus type II, controlled On: : Request LIPOPROTEIN, BLD, BY NMR (06716)Indication: Hypercholesteremia On: : Request LIPID PANEL (37684)Indication: Hypercholesteremia On: : Request Comments: do in 3 months HEPATIC FUNCTION PANEL (21397)Indication: Hypercholesteremia On: : Request LIPID PANEL (74035)Indication: Hypertension, benign On: : Request Planned Encounters Medical; 3 Month FU - On: 09-Feb-2019 8:15 [facility] Veronica Oquendo DO, DO, Kathleen Planned Procedures Solu -Medrol Injection, 125 mg On: 18-Aug-2018 Intent (J2930)By: Kassandra Fortune CNP Flu Vaccine (Quadrivalent) 09212Kk: On: 09-Aug-2018 Intent Veronica Oquendo DO, DO, Comments: Lot #[id number]-L dltd, IMDose prefilled syringegiven by:Aye Diego LPNVIS reviewed and ABN signed Veronica ELECTROCARDIOGRAM, COMPLETE (ECG) On: 09-Aug-2018 Intent (70635)By: Veronica Oquendo DO Comments: nsr - RBBB - no t acute Veronica Oquendo DO NASD-VS-JONZ BEHAVIORAL COUNSELING On: 09-Apr-2018 Intent FOR OBESITY, 15 MINUTES (G0447)By: Veronica Oquendo DO, DO, Kathleen SCREENING DIGITAL TOMOSYNTHESIS OF On: 09-Apr-2018 Intent BREAST (98915)By: Veronica Oquendo DO, DO, Kathleen Solu- Medrol Injection, 125mg On: 01-Jan-2018 Intent (J2930)By: Veronica Oquendo DO Comments: 125mg - 1 [id number]/2020R hip, CHONG Burden DO, Kathleen CHEST XRAY, PA & LATERAL (34758)By: On: 23-Dec-2017 Intent Veronica Oquendo DO, DO, Kathleen CHEST XRAY, PA & LATERAL (05153)By: On: 22-Dec-2017 Intent Kelsea Lund Aerosol Treatment (14276)By: On: 22-Dec-2017 Intent Kelsea Lund Comments: Still has wheezing in right lobe after aerosol treatment. Aerosol Treatment (64227)By: Azra On: 25-Nov-2017 Veronica Pabon DO, DO, Kathleen Comments: more a/e less reactivity 0-no wheeze but still that Rub in RLL area Solu- Medrol Injection, 125mg On: 25-Nov-2017 Intent (J2930)By: Veronica Oquendo DO Comments: [id number], 1vialMLONG AUDIT DIRECTOR Veronica Oquendo DO Solu- Medrol Injection, 125mg On: 27-Oct-2017 Intent (J2930)By: Kelsea Lund Comments: solumedrol 125mg injectionlot: [id number]: 10/2019L GMpt tolerated wellAD AUDIT DIRECTOR Aerosol Treatment (45992)By: On: 27-Oct-2017 Intent Kelsea Lund Comments: expiratory wheeze after albuterol aerosol treatment. EKG (11242)By: Veronica Oquendo DO On: 14-Oct-2017 Intent Veronica Oquendo DO Comments: nsr no acute chg- RBBB Aerosol Treatment (59148)By: Azra On: 14-Aug-2017 Veronica Pabon DO, DO, Kathleen Comments: no noise and more a/e Solu- Medrol Injection, 125mg On: 14-Aug-2017 Intent (J2930)By: Veronica Oquendo DO Comments: lot [id number] mgright gmIMas, AUDIT DIRECTOR Veronica Oquendo DO Solu- Medrol Injection, 125mg On: 05-Aug-2017 Intent (J2930)By: Veronica Oquendo DO Comments: Lot:[id number]:11/17Dose:125mgRoute:imSite:r hipGiven By:KMVIS signed Veronica Oquendo DO Flu Vaccine (Quadrivalent) [id number]: On: 28-Jul-2017 Intent Veronica Oquendo DO, DO, Kathleen ELECTROCARDIOGRAM, COMPLETE (ECG) On: 28-Jul-2017 Intent (34612)By: Veronica Oquendo DO, DO, Kathleen IV Needle placement (00177)By: On: 14-Jul-2017 Intent Kassandra Fortune CNP ORTHOSTATIC BLOOD PRESSURE On: 14-Jul-2017 Intent ASSESSMENT (43542)By: Kassandra Fortune CNP INFUSION, NORMAL SALINE SOLUTION , On: 14-Jul-2017 Intent 1000 CC (Special Coverage Instructions Apply. See MCM: 2049) (J7030)By: Kassandra Fortune CNP Solu -Medrol Injection, 125 mg On: 22-Jun-2017 Intent (J2930)By: Kelsea Lund Solu- Medrol Injection, 125mg On: 17-Apr-2017 Intent (J2930)By: Veronica Oquendo DO Comments: Lot:[id number]:04/2019Dose:125mgRoute:imSite:l armGiven By:NOE signed Veronica Oquendo DO DEXA SCAN AXIAL SKELETON (80020)By: On: 06-Apr-2017 Intent Veronica Oquendo DO, DO, Kathleen SCREENING DIGITAL TOMOSYNTHESIS OF On: 06-Apr-2017 Intent BREAST (12038)By: Veronica Oquendo DO, DO, Kathleen Flu Vaccine (Quadrivalent) 53300Ge: On: 20-Aug-2016 Intent Veronica Oquendo DO, DO, Comments: FLUlot: [id number]:05/29/17site:Lt deltoidroute:IMdose:.5mlVALENTINA MOBLEY Solu- Medrol Injection, 125mg On: 20-Aug-2016 Intent (J2930)By: Veronica Oquendo DO Comments: solumedrollot:[id number]:03/18site:lt glutroute:IMdose:125mgDVALENTINA Calderón DO, Kathleen Solu -Medrol Injection, 125 mg On: 13-Aug-2016 Intent ([id number])By: Kassandra Fortune CNP Comments: Lot:[id number]:02/2019Dose:125mgRoute:imSite:l hip Given By:JMICHAEL signed Aerosol Treatment ([id number])By: Irma On: 13-Aug-2016 Intent Clarisse SCHWARZ Radiology - Shoulder - LeftBy: Ciesa On: 04-Jul-2016 Intent BELLKassandra Radiology - Knee - LeftBy: Ciesa On: 04-Jul-2016 Intent BELL Kassandra Vargas Comments: send result to Dr. Delgadillo Toradol Injection, 30 mg ([id number])By: On: 04-Jul-2016 Intent Devika LUU Kassandra Vargas Aerosol Treatment ([id number])By: Azra On: 12-May-2016 Intent Veronica JEAN-BAPTISTE DO, Kathleen Comments: less cough and more a./e- no wheeze Solu- Medrol Injection, 125mg On: 12-May-2016 Intent ([id number])By: Veronica Oquendo DO Comments: lot: [id number]: 12/18site/route: RGM/IMamt: 2mLVIS signed when applicableChelsSTARR randolph DO, Kathleen CT - Chest (IV Contrast Needed)By: On: 09-May-2016 Intent Veronica Oquendo DO, DO, Veronica Radiology - Chest- PA and LatBy: On: 08-May-2016 Intent Veronica Oquendo DO, DO, Veronica PNEUM VAC ADLT/IMUMNOSPR, SBC/INTRM On: 21-Apr-2016 Intent ([id number])By: Veronica Oquendo DO Comments: pneumovaxlot:[id number]:09/06/17site:lt deltroute:IMDVALENTINA Calderón DO, Kathleen ETTN-TB-TECR BEHAVIORAL COUNSELING On: 21-Apr-2016 Intent FOR OBESITY, 15 MINUTES ([id number])By: Veronica Oquendo DO, DO, Kathleen MAMMOGRAM, SCREENING, BOTH BREAST On: 21-Apr-2016 Intent ([id number])By: Veronica Oquendo DO, DO, Kathleen Radiology - Knee - RightBy: Azra On: 14-Apr-2016 Intent Veronica JEAN-BAPTISTE DO, Kathleen Radiology - Knee - LeftBy: Azra On: 14-Apr-2016 Veronica Pabon DO, DO, Kathleen ADMINISTRATION OF INFLUENZA VIRUS On: 09-Aug-2015 Intent VACCINE (G0008)By: Veronica Oquendo DO, DO, Kathleen Flu Vaccine (Quadrivalent) [id number]: On: 09-Aug-2015 Intent Veronica Oquendo DO, DO, Comments: Lot:[id number]:02/27/16Dose:0.5mLRoute:IMSite:L DltdGiven By:NOE signed Veronica Solu -Medrol Injection, 125 mg On: 03-Aug-2015 Intent ([id number])By: Veronica Oquendo DO Comments: Lot:[id number]:12/2017Dose:125mgRoute:imSite:l armGiven By:NOE signed Veronica Oquendo DO Aerosol Treatment ([id number])By: Azra On: 03-Aug-2015 Veronica Pabon DO, DO, Kathleen Comments: more a/e after aerosol EKG ([id number])By: Veronica Oquendo DO On: 19-Jul-2015 Intent Veronica Oquendo DO Comments: ming botello -- no new twave chg when compared to old ones Aerosol Treatment ([id number])By: Azra On: 30-Apr-2015 Veronica Pabon DO, DO, Kathleen Radiology - Chest- PA and LatBy: On: 27-Apr-2015 Intent Veronica Oquendo DO, DO, Kathleen DEXA SCAN AXIAL SKELETON ([id number])By: On: 17-Apr-2015 Intent Veronica Oquendo DO, DO, Kathleen INTENSIVE BEHAVIORAL THERAPY TO On: 17-Apr-2015 Intent REDUCE CARDIOVASCULAR DISEASE RISK, INDIVIDUAL, LAUF-BN-QUDQ, ANNUAL, 15 MINUTES (G0446)By: Veronica Oquendo DO, DO, Kathleen EJCT-SH-LVXD BEHAVIORAL COUNSELING On: 17-Apr-2015 Intent FOR OBESITY, 15 MINUTES (G0447)By: Veronica Oquendo DO, DO, Kathleen MAMMOGRAM, SCREENING, BOTH BREAST On: 17-Apr-2015 Intent ([id number])By: Veronica Oquendo DO, DO, Kathleen EKG ([id number])By: Veronica Oquendo DO On: 16-Aug-2014 Intent Veronica Oquendo DO Comments: nsr nonspecif st and t wave chg old not new Radiology - Chest- PA and LatBy: On: 15-May-2014 Intent Veronica Oquendo DO, DO, Kathleen Toradol Injection, 30 mg ([id number])By: On: 12-May-2014 Intent Devika LUU Dasia Comments: Lot:[id number]:10/30/15Dose:30mgRoute:imSite:r hipGiven By:NOE signed Eprescribed prescriptions ([id number])By: On: 01-May-2014 Intent Veronica Oquendo DO DOVeronica MAMMOGRAM, SCREENING, BOTH BREASTS On: 18-Apr-2014 Intent ([id number])By: Veronica Oquendo DO, DO, Kathleen QUJZ-ED-RCKQ BEHAVIORAL COUNSELING On: 18-Apr-2014 Intent FOR OBESITY, 15 MINUTES (G0447)By: Veronica Oquendo DO, DO, Kathleen Eprescribed prescriptions ([id number])By: On: 11-Apr-2014 Intent Veronica Oquendo DO DO Veronica Pulse Oximetry ([id number])By: Azra JEAN-BAPTISTE, On: 11-Apr-2014 Intent Veronica Jurado DO Aerosol Treatment ([id number])By: Devika On: 27-Sep-2013 Intent Kassandra LUU DLNL-LB-HLFY BEHAVIORAL COUNSELING On: 12-Sep-2013 Intent FOR OBESITY, 15 MINUTES (G0447)By: Veronica Oquendo DO DO, Veronica MAMMOGRAM, SCREENING, BOTH BREASTS On: 12-Sep-2013 Intent ([id number])By: Kelsea Richards LPN DRAIN/INJECT MAJOR JOINT OR BURSA On: 24-Aug-2013 Intent ()By: Kelsea Richards LPN Comments: [id number] exp 08/13 DRAIN/INJECT MAJOR JOINT OR BURSA On: 24-Aug-2013 Intent ()By: Kelsea Richards LPN Comments: lt knee lot [id number] exp 08/13 DRAIN/INJECT MAJOR JOINT OR BURSA On: 18-Aug-2013 Intent ()By: Kelsea Richards LPN Comments: lt knee lot [id number] exp 07/13 DRAIN/INJECT MAJOR JOINT OR BURSA On: 18-Aug-2013 Intent ()By: Kelsea Richards LPN Comments: rt knee lot [id number] exp 07-13 FLU VAC, SPLIT, >3 YEARS, INTRAMUSC On: 10-Aug-2013 Intent ([id number])By: Veronica Oquendo DO Comments: lot [id number] 2014site/route L sabas, IMamt 0.5mlVIS and ABN signed when applicableSTARR Lui DO, Kathleen ADMINISTRATION OF INFLUENZA VIRUS On: 10-Aug-2013 Intent VACCINE (G0008)By: Sania Ritchie DRAIN/INJECT MAJOR JOINT OR BURSA On: 10-Aug-2013 Intent ()By: Kelsea Richards LPN Comments: euflexxa injection lt knee lot [id number] exp 07/13 DRAIN/INJECT MAJOR JOINT OR BURSA On: 10-Aug-2013 Intent ()By: Kelsea Richards LPN Comments: euflexxa injection rt knee lot [id number] exp 07/13 Solu- Medrol Injection, 125mg On: 03-Aug-2013 Intent ([id number])By: Veronica Oquendo DO Comments: injected over Left sciatic area - most tender spot marked - no bleed pt tolerated well -- 08/03/13 lot # Veronica Oquendo DO Eprescribed prescriptions ([id number])By: On: 03-Aug-2013 Intent Sania Ritchie Kenalog Injection, 10 mgm On: 21-Jul-2013 Intent (J3301)By: Veronica Oquendo DO Comments: used 40 mglot: [id number]: 02/11site/route: RGM/IMamt: 40VIS signed when applicableSTARR Lui DO, Kathleen Nuclear Stress Test/Stress On: 21-Jul-2013 Intent SPECT/AdenosineBy: Azra JEAN-BAPTISTE, Comments: needs adenosine - bc 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 Veronica Jurado DO Echo CompleteBy: Veronica Oquendo DO On: 21-Jul-2013 Intent Veronica Oquendo DO Spirometry ([id number])By: Azra JEAN-BAPTISTE On: 21-Jul-2013 Intent Veronica Jurado DO Comments: mild obstruction EKG (29575)By: Veronica Oquendo DO On: 21-Jul-2013 Intent Veronica Oquendo DO Comments: nsr no acute chg - t wave inversion ant septal leads - st depression in lateral precordial leads LMBN-AL-KPDB BEHAVIORAL COUNSELING On: 21-Jul-2013 Intent FOR OBESITY, [...] Intent (J2930)By: Kassandra Fortune CNP Comments: Lot: [id number]: 12/2015Amt: 125mgRoute: IMSite: RUOQ glutealGiven by: CHONG Canas EKG ([id number])By: Veronica Oquendo DO On: 11-Apr-2013 Intent Veronica Oquendo DO Comments: nsr no acute chg the same nonspecific st flattening in v1v2 are presnet on old ekg's Spirometry ([id number])By: Azra JEAN-BAPTISTE, On: 11-Apr-2013 Intent Veronica Jurado DO Comments: such poor technique cnt report a FEV Eprescribed prescriptions (G8553)By: On: 16-Sep-2012 Intent Kelsea Richards LPN FLU VAC, SPLIT, >3 YEARS, INTRAMUSC On: 02-Sep-2012 Intent ([id number])By: Veronica Oquendo DO Comments: Lot #[id number]-9/30/13Site-left deltoidgiven by: CHONG Patrick DO, Kathleen ADMINISTRATION OF INFLUENZA VIRUS On: 02-Sep-2012 Intent VACCINE (G0008)By: Veronica Oquendo DO, DO, Kathleen TWRT-KB-SJVT BEHAVIORAL COUNSELING On: 02-Sep-2012 Intent FOR OBESITY, 15 MINUTES (G0447)By: Veronica Oquendo DO, DO, Kathleen SPECIMEN HNDLNG/TRNSPRT, OFFC > LAB On: 04-Aug-2012 Intent ([id number])By: Suki Gutiérrez LPN MAMMOGRAM, SCREENING, BOTH BREASTS On: 28-Jul-2012 Intent ([id number])By: Veronica Oquendo DO, DO, Kathleen EKG ([id number])By: Veronica Oquendo DO On: 17-Jun-2012 Intent Veronica Oquendo DO Comments: nsr no acute chg Overnight Pulse Ox([id number])By: Mast On: 11-May-2012 Intent Suzy RUIZ Spirometry ([id number])By: Azra JEAN-BAPTISTE, On: 17-Mar-2012 Intent Veronica Jurado DO Comments: poor technique- stable -- FLU VAC, SPLIT, >3 YEARS, INTRAMUSC On: 01-Sep-2011 Intent ([id number])By: Kelsea Richards LPN Comments: given at health clinic not here Eprescribed prescriptions (G8553)By: On: 29-Jul-2011 Intent Kelsea Richards LPN Ultrasound - RenalBy: Devika SUPERVISOR HOUSECLEANER, On: 15-Jul-2011 Intent Dasia PNEUM VAC ADLT/IMUMNOSPR, SBC/INTRM On: 09-May-2011 Intent ([id number])By: Veronica Oquendo DO, DO, Kathleen IMMUNIZ ADMNIN, 1 VAC, SNGL/COMBO On: 09-May-2011 Intent ([id number])By: Veronica Oquendo DO, DO, Kathleen DXA, BONE DENSITY, AXIAL SKELETON On: 09-May-2011 Intent ([id number])By: Kelsea Richards LPN MAMMOGRAM, SCREENING, BOTH BREASTS On: 09-May-2011 Intent ([id number])By: Kelsea Richards LPN Clinical Breast Examination On: 09-May-2011 Intent (G0101)By: Kelsea Richards LPN TDAP VACCINE >7 IM (41210)By: Azra On: 16-Apr-2011 Intent Veronica JEAN-BAPTISTE DO, Kathleen Comments: Lot #[id number]/24/13Site-right deltoidgiven by: Alisa Vee LPN PULMONARY STRESS TEST/SIMPLE On: 04-Mar-2011 Intent (59031)By: Veronica Oquendo DO Comments: pt unable to complete fulol test due to shortess of breath. Pt completed 3 minutes of assessment. hh Veronica Oquendo DO EKG (88460)By: Veronica Oquendo DO On: 03-Mar-2011 Intent Veronica Oquendo DO Comments: nsr no acute changes Pulse Oximetry ([id number])By: Devika LUU, On: 29-Jan-2011 Intent Kassandra Vargas Solu- Medrol Injection, 125mg On: 29-Jan-2011 Intent (J2930)By: Kassandra Fortune CNP Pulse Oximetry ([id number])By: Bernardo RN, On: 29-Jan-2011 Intent Suzy IMMUNIZ ADMNIN, 1 VAC, SNGL/COMBO On: 04-Sep-2010 Intent ([id number])By: Lisa Blood FLU VAC, SPLIT, >3 YEARS, INTRAMUSC On: 04-Sep-2010 Intent (76020)By: Lias Blood Comments: Lot:[id number]:02/2011Dose:0.5MLRoute:IMSite:left deltoidGiven by: VALENTINA Saleem CT - Chest (IV Contrast Needed)By: On: 20-Jun-2010 Intent Veronica Oquendo DO, DO, Kathleen Echo CompleteBy: Veronica Oquendo DO On: 20-Jun-2010 Intent Veronica Oquendo DO Radiology - ChestBy: Kassandra Fortune CNP On: 27-May-2010 Intent E Aerosol Treatment (01535)By: Devika On: 27-May-2010 Intent Kassandra LUU Pulse Oximetry ([id number])By: Devika LUU On: 27-May-2010 Intent Kassandra Vargas Ultrasound - LiverBy: Azra JEAN-BAPTISTE, On: 07-Mar-2010 Intent Veronica Jurado DO Spirometry (70077)By: Azra JEAN-BAPTISTE On: 07-Mar-2010 Intent Veronica Jurado DO Comments: mild obstrucition EKG (00716)By: Veronica Oquendo DO On: 14-Dec-2009 Intent Veronica Oquendo DO Comments: nsr poor R wave progression-- will request old ekg to compare Spirometry (54323)By: Azra JEAN-BAPTISTE On: 14-Dec-2009 Intent Veronica Jurado DO Comments: mild obstructive disease but some technique off Planned Medications INFUSION, NORMAL SALINE SOLUTION , 1000 CC Ordered: 14-Jul-2017 Pending Ciesa SUPERVISOR HOUSECLEANER, Dasia INJECTION, KETOROLAC TROMETHAMINE, PER 15 MG Ordered: 12-May-2014 Pending Ciesa SUPERVISOR HOUSECLEANER, Dasia INJECTION, KETOROLAC TROMETHAMINE, PER 15 MG Ordered: 04-Jul-2016 Pending Ciesa SUPERVISOR HOUSECLEANER, Dasia INJECTION, METHYLPREDNISOLONE SODIUM SUCCINATE, UP TO 125 MG Ordered: 29-Jan-2011 Pending Ciesa SUPERVISOR HOUSECLEANER, Dasia INJECTION, METHYLPREDNISOLONE SODIUM SUCCINATE, UP TO [...] TO 125 MG Ordered: 13-Aug-2016 Pending Ciesa SUPERVISOR HOUSECLEANER, Dasia INJECTION, METHYLPREDNISOLONE SODIUM SUCCINATE, UP TO 125 MG Ordered: 12-May-2016 Pending Azra DO, Veronica Azra DO, Veronica INJECTION, METHYLPREDNISOLONE SODIUM SUCCINATE, UP TO 125 MG Ordered: 03-Aug-2015 Pending Veronica Oquendo DO, DO, Kathleen INJECTION, METHYLPREDNISOLONE SODIUM SUCCINATE, UP TO 125 MG Ordered: 03-Aug-2013 Pending Veronica Oquendo DO DO, Veronica INJECTION, METHYLPREDNISOLONE SODIUM SUCCINATE, UP TO 125 MG Ordered: 03-Jun-2013 Pending Ciesa SUPERVISOR HOUSECLEANER, Dasia INJECTION, METHYLPREDNISOLONE SODIUM SUCCINATE, UP TO 125 MG Ordered: 01-Jan-2018 Pending Veronica Oquendo DO, DO, Veronica INJECTION, METHYLPREDNISOLONE SODIUM SUCCINATE, UP TO 125 MG Ordered: 18-Aug-2018 Pending Ciesa SUPERVISOR HOUSECLEANER, Dasia INJECTION, TRIAMCINOLONE ACETONIDE, NOT OTHERWISE SPECIFIED, [...] foot : DISCONTINUED - RENAL FUNCTION PANEL (65012) Indication: Gout of right foot Gout of right foot : DISCONTINUED - URIC ACID BLOOD (29813) Indication: Gout of right foot Hypertension with renal disease : DISCONTINUED - MAGNESIUM (52466) Indication: Hypertension with renal disease Hypertension with renal disease : DISCONTINUED - POTASSIUM SERUM (73223) Indication: Hypertension with renal disease Diarrhea : [...] The patient does have durable power of employment attorney and living will. The patient has noticed nothing from the geriatic depression scale. Other providers contributing to the patient's care are mandolin repairer, glass melt operator, electrolytic etcher and other:.Encounter Diagnosis: BMI 38.0-38.9,adult, Nonsmoker, Annual [...] The patient does have durable power of employment attorney and livin g will. The patient has noticed lack of energy. Other providers contributing to the patient's care are gastrologist, electrolytic etcher and other: (pain management, podiatry).Encounter Diagnosis: Body [...] patient does not have durable power of employment attorney or living will. The patient has noticed nothing from the geriatic [facility]. Other providers contributing to the patient's care are electrolytic etcher and other:.Encounter Diagnosis: Annual Medicare Phyiscal WITHOUT [...] patient does not have durable power of employment attorney or living will. The patient has [...] care from a hospital (inhaled hamburger and burmese rice and she was in hosp from [...] providers contributing to the patient's care are glass melt operator (margaret saravia), electrolytic etcher (dr. hayes) and other: (dr. zincdr. leedr. [...] providers contributing to the patient's care are glass melt operator (sayleah has an appt with Dr Hammer this month at [facility] gastrologist (Michele), electrolytic etcher (Dr Hayes) and urologist (Dr Mayes).Encounter Diagnosis: [...]
--- OUTSIDE RECORDS SUMMARY | 2018-12-08 05:32 | XMS RPT_ITS | Continuity of Care Document ---
:1950 Author Organization [facility] Address [address] [place] [address] Phone Care Team Providers Name Role Phone [...] occurred s/p surgery - saw cardio in [place] had stress test and it was normal [...] after 2weeksdriving to see Dr Ribeiro in [place] Status: Active CHRONIC OBSTRUCTIVE ASTHMA WITH (ACUTE) [...] DO, DO, Kathleen Start : 25-Aug-2018 Active [place] 5-325 MG Oral Tablet 1 (one) Tablet [...] DO, Kathleen Start : 25-Aug-2018 Active [place] 3/16 31G X 5 MM Miscellaneous 1 [...] Quantity: 90 {Tablet} Refills: 3 Ordered:15-Sep-2018 Azra JEAN-BAPTISTE ShanonangimatildaAzra Veronica Start : 15-Sep-2018 Active Comments:pt cant [...] Quantity: 14 {Tablet} Refills: 0 Ordered:03-Mar-2011 Kelsea Richrads LPN Start : 11-Jun-2010 End : 03-Mar-2011 Inactive KLOR-CON M10, 10MEQ (Oral Tablet Extended Release) 1 Tablet ER qd for 0 days Quantity: 90 Refills: 3 Ordered:01-Sep-2011 Kelsea Richards LPN Start : 07-Aug-2010 End : 01-Sep-2011 Inactive KLOR-CON M20, 20MEQ (Oral Tablet Extended Release) 1 (one) Tablet ER daily for 0 days Quantity: 90 {Tablet} Refills: 0 Ordered:10-Apr-2016 Kelsea Rcihards LPN Start : 16-Aug-2014 End : 10-Apr-2016 [...] End : 10-Apr-2016 Inactive VITAMIN D (ERGOCALCIFEROL), [id number] (Oral Capsule) 1 (one) Capsule daily for [...] Discontinued Comments:Dispense mini needles CALCIUM + D, [phone]-MG-IU (PO Cap) 2 qd for 0 days [...] dr marianne wilcox ortho Date Value Details 22-May-2018 Orthopedic Visit Report Result: Comments: See Note; NOTES: [facility] Orthopaedics AND Sports Medicine [address] [place] [address] OFFICE VISIT Date of Service: 05/11/18 MR#: [id number] Acct: [id number] Name: SUGEY LING Rep #: [id number] : 1950 Provider: Tia Chirinos MD Age/Sex: 67/F Location: [facility] Status: Signed Intake Intake Visit Reasons: LOW [...] [History Confirmed 01/07/18] Fluticasone 0.05% [Flonase Nasal [place]] 1 spray NASAL DAILY 06/21/17 [History Confirmed 01/07/18] Fluticasone/Salmeterol [Advair 500/50 Mcg Diskus] 1 puff INHALATION BID 06/21/17 [History Confirmed 01/08/18] Furosemide [Lasix] 40 mg PO DAILY PRN PRN 06/21/17 [History Confirmed 01/07/18] Insulin Detemir [Levemir (BKC)] 24 units SC QHS 06/21/17 [History Con firmed 01/08/18] [place]-3S/Dha/Epa/Fish Oil [Fish Oil 1,200 mg Softgel] 1 ea PO DAILY 06/21/17 [History Confirmed 01/07/18] Pantoprazole Sodium [Protonix] 40 mg PO BID 06/21/17 [History Confirmed 8] Tiotropium Delaplane [Spiriva Respimat] 2 puff IH DAILY 06/21/17 [History Confirmed 01/08/18] Tramadol HCl [Ultram] 50 mg PO BID 06/21/17 [History Confirmed 01/07/18] Albuterol Inhaler [Ventolin Hfa (S P)] 1 - 2 puff INHALATION Q4H PRN PRN 12/04/17 [History Confirmed 01/08/18] Sour Scott Extract [Tart Scott Extract] 1,000 mg PO DAILY 01/07/18 [History Confirmed 01/07/18] [facility] Social History Smoki ng Status: Former smoker [...] nothin g. 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 [id number] Electronically Signed: Anam Larios MD at 7:57 EDT Tel [phone], Service jolly pport , CC: Veronica Oquendo DO Tuck Pointer: Signed 29-Jan-2018 Modified Barium Swallow Study Result: Comments: See Note; NOTES: [facility] Speech Pathology [address] [place] [address] Modified Barium Swallow Study MR#: [id number] Acct: [id number] Name: SUGEY LING Rep #: [id number] : 1950 67 From: Eliezer Duke M.A., CFY-RAMP LEAD PRIMARY / SECONDARY DIAGNOSIS: dysphagia (R13.10) REFERRING [...] Patien t inhaled pieces of hamburger and [place] rice. 04/26/2014 underwent bronchoscopy with bronchial lavage and foreign body removal after aspirating rice during intake of hamburger and [place]ian rice. 2017 CT/Chest revealed old granulomatous disease; no acute pulmonary abnormality; resolution of the right lower lobe infiltrate seen on the prior CT. 12/31/2017 CXR revealed cardiomegaly; pectus excavat um deformity; no acute abnormality is seen. 01/08/2018 underwent bronchoscopy with bronchial lavage and foreign body removal after aspirating rice during intake of Fijian food with resulting pneumoniti s of both food and emesis with bronchospasm, documentation reveals history of esophageal strictures with plans for cook chief referral for possible esophageal dilatation. Patient reports [...] Thin liquids via cup (single sip): 1 [place] thickened liquids via cup (single sip) : 1 [place] thickened liquids via cup (single sip): 2 [place] thickened liquids via cup (single sip): 1 [...] l functioning, with workup currently underway via cook chief. Patient able to comprehend and express recommended [...] 1520 <Electronically signed by Eliezer Duke M.A., CFY-RAMP LEAD> Date Eliezer Duke M.A. CFY-RAMP LEAD Co-Signature Required for all Medicare patients Date/Time Co-Signature CC: 29-Jan-2018 Swallowing Function w/Video Result: Comments: See Note; NOTES: [facility] Imaging Services [address] [place] [address] Swallowing Function w/Video MR#: [id number] Acct: [id number] Name: SUGEY LING Rep #: [id number] : 1950 F 67 From: Anam Larios MD PCP: Veronica Oquendo DO Status: [facility] Study: Swallowing Function w/Video Date of Exam: 01/29/18 Exam# [id number] Ordering Dr: Isaías Stroud MD STUDY: SWALLOWING [...] Anam Larios MD at 14:25 EST Tel [phone], Service support , CC: Veronica Stroud Tuck Pointer: Signed 30-Dec-2017 Chest PA and Lateral Result: Comments: See Note; NOTES: [facility] Imaging Services [address] [place] [address] Chest PA and Lateral MR#: [id number] Acct: [id number] Name: SUGEY LING Rep #: [id number] : 1950 67 From: Anam Larios MD PCP: Veronica Oquendo DO Status: REG CLI Study: Chest PA and Lateral Date of Exam: 12/30/17 Exam# [id number] Ordering Dr: Octavio Delgado MD STUDY: X- [...] Anam Larios MD at 12:54 EST Tel [phone], Service support , CC: Veronica Oquendo DO; Octavio Delgado MD Tuck Pointer: Signed 22-Dec-2017 Chest PA and Lateral Result: Comments: See Note; NOTES: [facility] Imaging Services [address] [place] [address] Chest PA and Lateral MR#: [id number] Acct: [id number] Name: SUGEY LING Rep #: [id number] : 1950 F 67 From: Ronnie Bradford MD PCP: Veronica Oquendo DO Status: REG CLI Study: Chest PA and Lateral Date of Exam: 12/22/17 Exam# [id number] Ordering Dr: Kelsea Lund ENGINE WATCHMANJonathan STUDY: X-RAY C HEST REASON FOR EXAM: [...] , CC: NAKIA Lund; Veronica Oquendo DO Tuck Pointer: Signed 04-Dec-2017 Chest without Contrast Result: Comments: See Note; NOTES: [facility] Imaging Services [address] [place] [address] Chest without Contrast MR#: [id number] Acct: [id number] Name: SUGEY LING Rep #: [id number] : 1950 F 67 From: Rogelio Alston DO PCP: Veronica Oquendo DO Status: REG CLI Study: Chest without Contrast Date of Exam: 12/04/17 Exam# [id number] Ordering Dr: Octavio Delgado MD STUDY: CT [...] Rogelio Alston DO at 13:14 EST Tel [phone], Service support , CC: Veronica Oquendo DO; Octavio Delgado MD Tuck Pointer: Signed 17-Nov-2017 Emergency Department Summary Result: Comments: See Note; NOTES: [facility] Medical Records Department [address] [place] [address] Emergency Department Summary 11/16/17 1811 MR#: [id number] Acct: [id number] Name: SUGEY LING Rep #: [id number] : 1950 66 From: Lobito Lee MD [...] a prednisone taper and sees a pul handbook writer. I believe that she should continue her [...] Aspiration event This note was generated with Dajiabao dictation software. It may contain incorrect words, [...] problems, contact your Primary Care Provider. Call [facility] ([phone]) or report to the closest Emergency Room. Call 911 if necessary. 11/17/17 0054 <Electronically signed by Lobito Lee MD> Date Lobito Lee MD Cosigner Signature (If Indicated): Date CC: Veronica Oquendo DO 16-Nov-2017 Chest PA and Lateral Result: Comments: See Note; NOTES: [facility] Imaging Services [address] [place] [address] Chest PA and Lateral MR#: [id number] Acct: [id number] Name: SUGEY LING Rep #: [id number] : 1950 F 66 From: Ivone Guevara MD PCP: Veronica Oquendo DO Status: REG ER Study: Chest PA and Lateral Date of Exam: 11/16/17 Exam# [id number] Ordering Dr: Lobito eLe MD STUDY: X-RAY CHEST REASON FOR EXAM: [...] Fax CC: Veronica Oquendo DO; Lobito Lee Tuck Pointer: Signed 09-Oct-2017 Chest PA and Lateral Result: Comments: See Note; NOTES: [facility] Imaging Services [address] [place] [address] Chest PA and Lateral MR#: [id number] Acct: [id number] Name: SUGEY LING Rep #: [id number] : 1950 F 66 From: Anam Larios MD PCP: Veronica Oquendo DO Status: REG CLI Study: Chest PA and Lateral Date of Exam: 10/09/17 Exam# [id number] Ordering Dr: Will Oliveira MD STUDY: X-RAY [...] Anam Larios MD at 15:14 EST Tel [phone], Service support , CC: Veronica Oquendo DO; Will Oliveira MD Tuck Pointer: Signed 15-Jul-2017 PT D/C Summary (1) Result: Comments: See Note; NOTES: [facility] [address] [place] [address] Fax REHABILITATION SERVICES [facility] SUMMARY MR#: [id number] Acct: [id number] Name: SUGEY LING Rep #: [id number] : 1950 66 From: Nghia Willis PT, Cert. MDT, OCS Referring Dr.: Chetan Medina MD Status: REG RCR Insurance: M [employer]ICARE PART A B [employer] FOR [employer] - PT D/C Summary It has [...] therapy, please feel free to yamilka l co at [phone]. Thank you for the referral of this patient. Sincerely, Nghia Willis, PT, <Electronically signed by Nghia Willis PT, Cert. MDT, [facility]> 07/15/17816 CC: Chetan Medina MD; Veronica Oquendo DO WENCESLAO Signed 11-Jul-2017 Emergency Department Summary Result: Comments: See Note; NOTES: [facility] Medical Records Department [address] [place] [address] Emergency Department Summary 06/21/17 0738 MR#: [id number] Acct: [id number] Name: SUGEY LING Rep #: [id number] : 1950 66 From: Rufino Vela MD [...] ED Arthritis Gout Prescriptions: Hydrocodone Bitart/Apap 5-325 [[place] 5/325] 1 - 2 tablet PO Q4H PRN PRN #7 tablet PRN Reason: Pain Referrals: Veronica Oquendo, DO [Primary Care Provider] - What to do if you have Problems For any increased pain, shortness of breath, bleeding, na usea or vomiting, chest pain, or any unexpected problems, contact your Primary Care Provider. Call [facility] ([phone]) or report to the closest Emergency Room. Call 911 if necessary. 07/11 0903 <Electronically signed by Rufino Vela MD> Date Rufino Vela MD Cosigner Signature (If Indicated): Date CC: Veronica Oquendo DO 21-Jun-2017 Discharge Instruction Result: Comments: See Note; NOTES: [facility] Medical Records Department [address] [address] [place] [address] Discharge Instruction 06/21/17 0740 MR#: [id number] Acct: [id number] Name: Sissy LING Rep #: [id number] : 1950 66 From: Rufino Vela MD PCP: Veronica Oquendo DO Status: REG ER ED Disposition - Plan for ED Patient: Chief Complaint: Lower Extremity Injury Instruction s: ED Arthritis Gout Prescriptions: Hydrocodone Bitart/Apap 5-325 [[place] 5/325] 1 - 2 tablet PO Q4H [...] PT (1) Result: Comments: See Note; NOTES: [facility] [address] [place] [address] Fax REEVALUATION / MEDICARE RECERTI VEL [place] 4d PHYSICAL THERAPY MR#: [id number] Acct: [id number] Name: SUGEY LING Rep #: [id number] : 1950 66 From: Nghia Willis PT, [...] do not hesitate to contact me at [phone] by phone or if you have questions [...] Bending Views Result: Comments: See Note; NOTES: [facility] Imaging Services [address] [place] [address] Ver[place] 4d L/S Spine Comp/w Bending Views MR#: [id number] Acct: [id number] Name: DAVE LING Rep #: [id number] : 1950 F 66 From: Ronnie Bradford MD PCP: Veronica Oquendo DO Status: REG CLI Study: L/S Spine Comp/w Bending Views Date of Exam: 06/09/17 Exam# [id number] Ordering Dr: Alicia Chirinos MD STUDY: X-RAY [...] CC: Tia Chirinos M.D.; Veronica Oquendo DO Tuck Pointer: Signed 26-May-2017 Re-Evaluation - PT (1) Result: Comments: See Note; NOTES: [facility] [address] [place] [address] Fax [facility] MR#: [id number] Acct: [id number] Name: SUGEY LING Rep #: [id number] : 1950 66 From: Nghia Willis PT, [...] do not hesitate to contact me at [phone] by phone or if you have questions or concerns regardin g this new plan of care! Sincerely, Nghia Willis PT, <Electronically signed by Nghia Willis PT, Cert. T, [facility]> 05/26/17 1440 CC: Chetan Medina MD; Veronica Oquendo DO DD: WENCESLAO Signed For Medicare only, by signing this I certify the plan of care. Physicians Signature Date 12-May-2017 Dexa Bone Density Study (HP) Result: Comments: See Note; NOTES: [facility] Imaging Services [address] [place] [address] Verdana 4d Dexa Bone Density Study (HP) MR#: [id number] Acct: [id number] Name: SUGEY LING Rep #: [id number] : 1950 F 66 From: Anam Larios MD PCP: Veronica Oquendo DO Status: REG CLI Study: Dexa Bone Density Study (HP) Date of Exam: 05/12/17 Exam# [id number] Ordering Dr: Veronica Bridges DO STUDY: DUAL [...] Anam Larios MD at 12:45 EDT Tel [phone], Service support , CC: Veronica Oquendo DO Tuck Pointer: Signed 12-May-2017 SCREENING MAMM (CAD), BILAT Result: Comments: See Note; NOTES: [facility] Imaging Services [address] [place] [address] Ver[place]ana 4d SCREENING MAMM (CAD), BILAT MR#: [id number] Acct: [id number] Name: SUGEY LING Rep #: [id number] : 1950 F 66 From: Royce Phipps MD PCP: Veronica Oquendo DO Status: REG CLI Study: SCREENING MAMM (CAD), BILAT Date of Exam: 05/12/17 Exam# [id number] Ordering Dr: Bren Oquendo DO MAMMOGRAPHY - [...] delay biopsy of a clinically suspicious abnormality. [id number] Electronically Signed: Royce Phipps MD at 13:24 EDT Tel , Service support [phone], CC: Veronica Oquendo DO Tuck Pointer: Signed 30-Apr-2017 Inital Evaluation (1) - PT Result: Comments: See Note; NOTES: [facility] [place] [address] Fax REHABILITATION SERVICES INITIAL EVALUATION MR#: [id number] Acct: [id number] Name: SUGEY LING Rep #: [id number] [...] bowel/bladder problems. Physical therapy went well in [place], she was able to walk again. Social: [...] to be FAXED BACK to us at [phone] for Medicare purposes. Please let me know [...] Lumbar (Routine) Result: Comments: See Note; NOTES: [facility] Imaging Services [address] [place] [address] Ver[place] 4d Spine Lumbar (Routine) MR#: [id number] Acct: [id number] Name: SUGEY LING Devin Rep #: [id number] : 1950 F 66 From: Ronnie Bradford MD PCP: Veronica Oquendo DO Status: REG CLI Study: Spine Lumbar (Routine) Date of Exam: 04/24/17 Exam# [id number] Ordering Dr: Chetan Medina MD UDY: MRI [...] CC: Chetan Medina MD; Veronica Oquendo DO Tuck Pointer: Signed 15-Apr-2017 Hips B/L min 2 views w/ Pelvis Result: Comments: See Note; NOTES: [facility] Imaging Services [address] [place] [address] Ver[place] 4d Hips B/L min 2 views w/ Pelvis MR#: [id number] Acct: [id number] Name: DAVE LING Rep #: [id number] : 1950 F 66 From: Jeremiah Ramos MD PCP: Veronica Oquendo DO Status: REG CLI Study: Hips B/L min 2 views w/ Pelvis Date of Exam: 04/15/17 Exam# [id number] Ordering Dr: Chetan Hubbard MD STUDY: X-RAY [...] CC: Chetan Medina MD; Veronica Oquendo DO Tuck Pointer: Signed 16-Jul-2016 Spirometry (09769) Result: 16-Jul-2016 ELECTROCARDIOGRAM, COMPLETE (ECG) (88742) Comments: no new chg cmpared to last ekg Result: [MEASUREMENTS ANALYSIS] Date of Test: 07/16/2016 11:05:02; Heart Rate: 69; IN Interval: 144; QRS: 104; QT Interval: 394; Corrected QT Interval (QTc): 409; P Wave [place]: 56; QRS [place]: 55; T Wave [place] : 90; Blood Pressure: 122/78 [ECG DIAGNOSTIC STATEMENTS] Date of Test: 07/16/2016 11:05:02; Summary: Sinus Rhythm Low voltage in limb leads. - Negative T- waves -Possible Anterior ischemia. ABNORMAL 04-Jul-2016 Knee 4 or More Views Result: Comments: See Note; NOTES: [facility] Imaging Services [address] [place] [address] Ver[place] 4d Knee 4 or More Views MR#: [id number] Acct: [id number] Name: SUGEY LING Rep # : [id number] : 1950 F 65 From: Ivone Guevara MD PCP: Veronica Oquendo DO Status: REG CLI Study: Knee 4 or More Views Date of Exam: 07/04/16 Exam# [id number] Ordering Dr: Kassandra Fortune STUDY: X-RAY - [...] at 16:23 EDT Tel , Service support [phone], CC: Kassandra Fortune; Veronica Oquendo DO Tuck Pointer: Signed 03-Jun-2016 Emergency Department Summary Result: Comments: See Note; NOTES: [facility] Medical Records Department [address] [place] [address] Emergency Department Summary MR#: [id number] Acct: [id number] Name: SUGEY LING Rep #: [id number] : 1950 65 From: Ronaldo Verduzco MD [...] C: Veronica Reeder MD T: NTS JOB: [id number] 06/03/16 1307 <Electronically signed by Ronaldo Verduzco MD> Date Ronaldo Verduzco MD Cosigner Signature (If Indicated): Date CC: Veronica Oquendo DO; Will Oliveira MD Date Dictated: 06/03/16 1232 Date Transcribed: 06/03/16 1232 Tuck Pointer: Signed 03-Jun-2016 Discharge Instruction Result: Comments: See Note; NOTES: [facility] Medical Records Department [address] [place] [address] Discharge Instruction 06/03/16 1230 MR#: [id number] Acct: [id number] Name: SUGEY LING Rep #: [id number] : 1950 65 From: Ronaldo Verduzco MD PCP: Veronica Oquendo DO Status: REG ER ED Disposition - Plan for ED Patient: Disposition[facility] Home [facility] Complaint[facility] Fall Instructions: ED Fracture, Shoulder, ED [...] any unexpected problems, contact your doctor. Call [facility] ([phone]) or report to the closest Emergency Room. Call 911 if necessary. 06/03/16 1234 <El ectronically signed by Ronaldo Verduzco MD> Date Ronaldo Verduzco MD Cosigner Signature (If Indicated): Date CC: Veronica Oquendo DO 03-Jun-2016 Shoulder min 2 Views Result: Comments: See Note; NOTES: [facility] Imaging Services [address] [place] [place] [address] Ver[place] 4d Shoulder min 2 Views MR#: [id number] Acct: [id number] Name: SUGEY LING Rep #: [id number] : 1950 F 65 From: Anam Larios MD PCP: Veronica Oquendo DO Status: REG ER Study: Shoulder min 2 Views Date of Exam: 06/03/16 Exam# [id number] Ordering Dr: Ronaldo Verduzco MD STUDY: X-RAY [...] Anam Larios MD at 12:42 EDT Tel [phone], Service support [phone], RAD/Shoulder min 2 Views IMPRESSION: I suspect a nondisplaced impacted fracture of the surgical neck of the humerus. Electronically Signed: Anam rinaldi MD at 12:42 EDT Tel [phone], Service support [phone], CC: Veronica Oquendo DO; Ronaldo Verduzco MD Tuck Pointer: Signed 13-May-2016 L/S Spine Min 4 Views Result: Comments: See Note; NOTES: [facility] Imaging Services [address] [place] [address] Verdana 4d L/S Spine Min 4 Views MR#: [id number] Acct: [id number] Name: SUGEY LING Rep #: [id number] : 1950 F 65 From: Anam Larios MD PCP: Veronica Oquendo DO Status: REG CLI Study: L/S Spine Min 4 Views Date of Exam: 05/13/16 Exam# [id number] Ordering Dr: Chetan Luo MD STUDY: X-RAY [...] Anam Larios MD at 8:31 EDT Tel [phone], Service support [phone], RAD/L/S Spine Min 4 Views IMPRESSION: Status post laminectomy and fusion at the L4-L5 and L5-S1 levels with prosthetic disc insertion. Grade 2 anterior listhesis of L5 on S1. Electron ically Signed: Anam Larios MD at 8:31 EDT Tel [phone], Service support [phone], CC: Chetan Medina MD; Veronica Oquendo DO Tuck Pointer: Signed 13-May-2016 Chest WITH Contrast Result: Comments: See Note; NOTES: [facility] Imaging Services [address] [place] [address] [place] 4d Chest WITH Contrast MR#: [id number] Acct: [id number] Name: Sissy LING [facility] A Rep #: [id number] : 1950 F 65 From: Anam Larios MD PCP: Veronica Oquendo DO Status: REG CLI Study: Chest WITH Contrast Date of Exam: 05/13/16 Exam# [id number] Ordering Dr: Veronica Oquendo DO STUDY: CT [...] Anam Larios MD at 8:42 EDT Tel [phone], Service support , CC: Veronica Oquendo DO Tuck Pointer: Signed 09-May-2016 Bilat Scrn Digital AND CAD Result: Comments: See Note; NOTES: [facility] Imaging Services [address] [place] [address] Ver[place]ana 4d Bilat Scrn Digital AND CAD MR#: [id number] Acct: [id number] Name: SUGEY LING Rep #: [id number] : 1950 F 65 From: Anam Larios MD PCP: Veronica Oquendo DO Status: REG CLI Study: Bilat Scrn Digital AND CAD Date of Exam: 05/09/16 Exam# [id number] Order ing Dr: Veronica Oquendo DO MAMMOGRAPHY [...] delay biopsy of a clinically suspicious abnormality. [id number] Electronically Signed: Anam Larios MD at 10:46 EDT Tel [phone], Se rvice support [phone], CC: Veronica Oquendo DO Tuck Pointer: Signed 09-May-2016 Chest PA and Lateral Result: Comments: See Note; NOTES: [facility] Imaging Services [address] [place] [address] Ver[place] 4d Chest PA and Lateral MR#: [id number] Acct: [id number] Name: SUGEY LING Rep #: [id number] : 1950 F 65 From: Anam Larios MD PCP: Veronica Oquendo DO Status: REG CLI Study: Chest PA and Lateral Date of Exam: 05/09/16 Exam# [id number] Ordering Dr: Veronica Davidson DO STUDY: X-RAY [...] Anam Larios MD at 9:41 EDT Tel [phone], Service support [phone], RAD/Chest PA and Lateral IMPRESSION: Focal area of increased markings in the right midlung. Followup is recommended. Electronically Signed: Anam Larios MD at 9:41 EDT Tel [phone], Service support [phone], CC: Veronica Oquendo DO Tuck Pointer: Signed 15-Apr-2016 Knee 4 or More Views Result: Comments: See Note; NOTES: [facility] Imaging Services [address] [place] [address] Verdana 4d Knee 4 or More Views MR#: [id number] Acct: [id number] Name: SUGEY LING Rep #: [id number] : 1950 F 65 From: Royce Phipps MD PCP: Veronica Oquendo DO Status: REG CLI Study: Knee 4 or More Views Date of Exam: 04/15/16 Exam# [id number] Ordering Dr: Tad Oquendo DO STUDY: X-RAY [...] 10:30 EDT Tel , Servic e support [phone], RAD/Knee 4 or More Views IMPRESSION: Degenerative arthrosis. Electronically Signed: Royce Phipps MD at 10:30 EDT Tel , Service support [phone], CC: Veronica Oquendo DO Tuck Pointer: Signed 15-Apr-2016 Knee 4 or More Views Result: Comments: See Note; NOTES: [facility] Imaging Services [address] [address] Verdana 4d Knee 4 or More Views MR#: [id number] Acct: [id number] Name: SUGEY LING Rep #: [id number] : 1950 F 65 From: Royce Phipps MD PCP: Veronica Oquendo DO Status: REG CLI Study: Knee 4 or More Views Date of Exam: 04/15/16 Exam# [id number] Ordering Dr: Tad Oquendo DO STUDY: X-RAY [...] 10:39 EDT Tel , Ser vice support [phone], RAD/Knee 4 or More Views IMPRESSION: Degenerative arthrosis. Electronically Signed: Royce Phipps MD at 10:39 EDT Te l , Service support [phone], CC: Veronica Oquendo DO Tuck Pointer: Signed 30-Jul-2015 Spirometry (55010) Result: 19-Jul-2015 Spirometry (20074) Comments: mild obstruction - asx Result: 08-May-2015 Bilat Scrn Digital AND CAD Result: Comments: See Note; NOTES: [facility] Imaging Services [address] [place] [address] Breast Imaging Report MR#: [id number] Acct: [id number] Name: SUGEY LING Rep #: [id number] : 1950 F 64 From: Anam Larios MD PCP: Veronica Oquendo DO Status: REG CLI Study: Bilat Scrn Digital AND CAD Date of Exam: 05/08/15 Exam# [id number] Ordering Dr: Pippa Oquendo DO MAMMOGRAPHY - [...] Jj Larios MD at 10:50 EDT Tel [phone], Service support [phone], CC: Veronica Oquendo DO Tuck Pointer: Signed 08-May-2015 Dexa Bone Density Study (HP) Result: Comments: See Note; NOTES: [facility] Imaging Services [address] [place] [address] 56388 Bone Density Report MR#: [id number] Acct: [id number] Name: SUGEY LING Rep #: [id number] : 1950 F 64 From: Anam Larios MD PCP: Veronica Oquendo DO Status: REG CLI Study: Dexa Bone Density Study (HP) Date of Exam: 05/08/15 Exam# [id number] Ordering Dr: Pippa Oquendo DO STUDY: DUAL [...] Anam Larios MD at 15:32 EDT Tel [phone], Service support [phone], CC: Veronica Oquendo DO Tuck Pointer: Signed 27-Apr-2015 Chest PA and Lateral Result: Comments: See Note; NOTES: [facility] Imaging Services [address] [place] [address] Radiology Report MR#: [id number] Acct: [id number] Name: SUGEY LING Rep #: [id number] : 1950 F 64 From: Lilian Dominguez MD PCP: Veronica Oquendo DO Status: REG CLI Study: Chest PA and Lateral Date of Exam: 04/27/15 Exam# [id number] Ordering Dr: Veronica Oquendo DO STUDY : [...] MD at 22:33 EDT , Service support [phone], RAD/Chest PA and Lateral IMPRESSION: No acute cardiopulmonary findings or changes. Mild hyper expansion and stable mild chronic lung changes. Stigmata of prior granulomatous disease. Atherosclerosis. Demineralized osseous structures and dextroscoliosis. Electronically Signed: Lilian Dominguez MD at 22:33 EDT , Service support [phone], CC: Veronica Oquendo DO Tuck Pointer: Signed 31-May-2014 Foot min 3 Views Result: Comments: See Note; NOTES: [facility] Imaging Services [address] [place] [address] 18354 Radiology Report MR#: [id number] Acct: [id number] Name: SUGEY LING Rep #: [id number] : 1950 F 63 From: Celso Guerrero DO PCP: Veronica Oquendo DO Status: REG CLI Study: Foot min 3 Views Date of Exam: 05/31/14 Exam# [id number] Ordering Dr: Jade Benson MD STUDY: X-RAY [...] at 9:32 EDT Tel , Service support [phone], CC: Veronica Oquendo DO; Jade Benson MD Tuck Pointer: Signed 31-May-2014 Foot min 3 Views Result: Comments: See Note; NOTES: [facility] Imaging Services [address] [place] [address] Radiology Report MR#: [id number] Acct: [id number] Name: SUGEY LING Rep #: [id number] : 1950 F 63 From: Celso Guerrero DO PCP: Veronica Oquendo DO Status: REG CLI Study: Foot min 3 Views Date of Exam: 05/31/14 Exam# [id number] Ordering Dr: Jade Benson MD STUDY: X-RAY [...] DO at 9:34 EDT , Service support [phone], CC: Veronica Oquendo DO; Jade Benson MD Tuck Pointer: Signed 31-May-2014 Hand Min 3 Views Result: Comments: See Note; NOTES: [facility] Imaging Services [address] [place] [address] Radiology Report MR#: [id number] Acct: [id number] Name: SUGEY LING Rep #: [id number] : 1950 F 63 From: Celso Guerrero DO PCP: Veronica Oquendo DO Status: REG CLI Study: Hand Min 3 Views Date of Exam: 05/31/14 Exam# [id number] Ordering Dr: Jade Benson MD STUDY: X-RAY [...] DO at 9:42 EDT , Service support [phone], CC: Veronica Oquendo DO; Jade Benson MD Tuck Pointer: Signed 31-May-2014 Hand Min 3 Views Result: Comments: See Note; NOTES: [facility] Imaging Services [address] [place] [address] Radiology Report MR#: [id number] Acct: [id number] Name: SUGEY LING Rep #: [id number] : 1950 F 63 From: Celso Guerrero DO PCP: Veronica Oquendo DO Status: REG CLI Study: Hand Min 3 Views Date of Exam: 05/31/14 Exam# [id number] Ordering Dr: Jade Benson MD STUDY: X-RAY [...] at 9:43 EDT , Servic e support [phone], RAD/Hand Min 3 Views IMPRESSION: Osteopenia with degenerative changes. No acute fracture demonstrated. Electronically Signed: Ashok keith DO at 9:43 EDT , Service support [phone], CC: Veronica Oquendo DO; Jade Benson MD Tuck Pointer: Signed 19-May-2014 Chest PA and Lateral Result: Comments: See Note; NOTES: [facility] Imaging Services [facility] [place] [address] Radiology Report MR#: [id number] Acct: [id number] Name: SUGEY LING Rep #: [id number] : 1950 F 63 From: Marciano Fountain MD PCP: Status: REG CLI Study: Chest PA and Lateral Date of Exam: 05/19/14 Exam# [id number] Ordering Dr: Veronica Oquendo DO STUDY: X-RAY [...] MD at 5:44 EDT , Service support [phone], CC: Veronica Oquendo DO Tuck Pointer: Signed 18-Apr-2014 EKG (50012) Comments: nsr no acute chg Result: [MEASUREMENTS ANALYSIS] Date of Test: 04/18/2014 09:33:28; Heart Rate: 72; IN Interval: 148; QRS: 108; QT Interval: 392; Corrected QT Interval (QTc): 413; P Wave [place]: 63; QRS Wave [place]: 59; T Wave [place] : 66; Blood Pressure: 138/62 [ECG DIAGNOSTIC STATEMENTS] Date of Test: 04/18/2014 09:33:28; Summary: Sinus Rhythm Low voltage in limb leads. - Negative precordial T-waves. ABNORMAL 16-Sep-2013 Bilat Scrn Digital & CAD Result: Comments: See Note; NOTES: [facility] Imaging Services [address] [place] [address] Breast Imaging Report MR#: [id number] Acct: [id number] Name: SUGEY LING Rep #: [id number] : 1950 F 62 From: Anam Larios MD PCP: Veronica Oquendo DO Status: REG CLI Exam# [id number] Ordering Dr: Azra, Veronica DO MAMMOGRAPHY - [...] September 16, 2013 at 9:43:10 AM EDT [phone] Electronically Signed GP/GP If you are the referring physician and would like to consult with the radiologist who provided this interpretation, please contact Anam Webb i, M.D. at [phone]. If this radiologist is unavailable, you will be directed to another radiologist to assist. If you are a patient with a question regarding this report, please contact your re ferring physician directly. Professional Interpretation Provided By: [employer], Phone , These documents contain legally protected [...] of these documents. CC: Veronica Oquendo DO Tuck Pointer: Signed Family History Unknown Family Member Name [...] kg/m2 Body Surface Area Calculated 1.85 m2 66-Goc-400362:51 Temperature 98.4 f Comments: Method: Tympanic Respiration [...] Surface Area Calculated 1.86 m2 :39 Comments: [facility] and had a glaucoma test [...] kg/m2 Body Surface Area Calculated 1.9 m2 62-Hbt-670660:16 Pulse 84 /min Comments: Pattern: Regular Respiration [...] kg/m2 Body Surface Area Calculated 1.89 m2 69-Cpp-225054:17 Comments: [facility] and had a glaucoma test [...] kg/m2 Body Surface Area Calculated 1.9 m2 81-Nkq-738391:22 Pulse 79 /min Comments: Pattern: Regular Respiration [...] kg/m2 Body Surface Area Calculated 1.84 m2 18-Mvi-483742:06 Pulse 64 /min Comments: Pattern: Regular Respiration [...] Description Value Details :59 URIC ACID BLOOD (54960) Comments: PATIENT NOT FASTINGPERFORMED BY: [facility] Nwnjel3145 [facility] [id number] Uric Acid 8.7 mg/dL (Abnormal) Range: 2.5-7.1 Comments: Therapeutic target for gout patients: <6.0 :34 HgA1C , Office (01333) HgA1C , Office 6.5 % (Normal) Range: 4.6 - 7.1 :33 Blood Glucose , Office (86471) Blood Glucose , Office 103 (Normal) 20-Qug-493036:32 Basic Metabolic Profile (BMP) Comments: [facility] [address] [place], [address] GAP 3 (Abnormal) Range: 5-15 CO2 31.0 [...] A.D.A. criteria.Please note revised GLUCOSE reference range cxoctjlna23/02/2018. :36 HgA1C , Office (51083) HgA1C , Office 6.6 % (Normal) Range: 4.6 - 7.1 :36 Blood Glucose , Office (42114) Blood Glucose , Office 186 (Normal) Comments: not fasting 9-Fpf-642930:28 Miscellaneous Lab Procedure Comments: Comments: TRAMADOL URINE [id number](s) Ordered: URINE TOXICOLOGY [id number] RUN [facility] [address] [facility], [address] [facility] Comments: [id number] 6+OXYCODONE-BUND (ng/mL)DRUG RESULT SCREEN CUTOFF____ Amphetamines,Urine Negat LAB (Normal) emy ng/mL 1000Amphetamine test includes Amphetamine and Methamphetamine.Barbiturates Negative ng/mL 200Benzodiazepines Negative ng/mL 200Cannabinoid TEST Negative ng/mL 20Cocaine (Metab) Negative ng/mL 300Opiates Negative ng/mL 300 Opiates test includes Codeine, Morphine, Hydromorphone, Rowena codone.Oxycodone/Oxymorphone,Urine Negative ng/mL 300 Test includes Oxydodone and Oxymorphone. TESTING PERFORMED AT [facility]. ORIGINAL REPORT ON FILE IN LAB CONTAINS ADDITIONAL TEST SITE INFORMATION. 2-Htu-140049:28 Miscellaneous Lab Procedure 2 Comments: Comments: TRAMADOL URINE [id number] Test(s) Ordered by Physician: URINE TOXICOLOGY [id number] RUN [facility] [address] [place] [place], [id number] [facility] Comments: TEST RESULT LIMITSTramadol Positive Cutoff = 200 Tramadol GC/MS COnf 6050 ng/mL Cutoff = 100 LAB (Normal) TESTING PERFORMED AT [facility]. ORIGINAL REPORT ON FILE IN LAB CONTAINS ADDITIONAL TEST SITE INFORMATION. TEST 2 9-Wzz-819412:28 Urine Drug Screen (VISTA) Comments: Comments: TRAMADOL URINE [id number] of Drugs Taken or Suspected? [facility] [address] [place], [place], [id number] THC NEGATIVE (Normal) PCP NEGATIVE (Normal) OPIATES [...] TESTING MUST BE ORDERED SEPARATELY. USE TESTMNEMONIC: [facility] 40-Wdh-669001:14 CBC-Complete Blood Cnt No Diff Comments: [facility] [address] [place], [phone](540) MPV 9.5 fL (Normal) Range: 6.2-12.0 PLT [...] 4.2-5.4 WBC 9.7 K/mm3 (Normal) Range: 4.4-11.0 50-Zcz-542886:14 Magnesium Comments: [facility] [address] [place], [address](632) MG 1.7 mg/dL (Normal) Range: 1.6-2.6 23-Tjb-217005:14 Microalb:Creat Ratio,Random UR Comments: [facility] [address] [place], [address] MALB:CREAT 5.5 {mg/g_CRE} (Normal) MICROALBUMIN,UR 6.1 mg/L (Normal) UR CREAT 111.00 mg/dL (Normal) 97-Akm-808080:1 PTHIN 25.7 pg/mL (Normal) Comments: [address] [place], [id number] 4 Range: 18.4-80.1 Comments: Please Note: PTH INTACT METHOD AND REFERENCE RANGE CHANGEEffective 11/18/2017. 14-Mdy-899517:14 Renal Profile Comments: [facility] [address] [place], [address] CO2 27.0 mmol/L (Normal) Range: 21.0-32.0 CL [...] A.D.A. criteria.Please note revised GLUCOSE reference range axemekbuh66/02/2018. 54-Knq-407523:14 Uric Acid Comments: [facility] [address] [place], [id number] URIC 8.4 mg/dL (Abnormal) Range: 2.6-6.0 Comments: The drugs N-Acetylcysteine and Metamizole may falselydepress this assay. 23-Fqy-424437:14 Vitamin D,25 Hydroxy Comments: [facility] [address] [place], [address] Vitamin D 25-OH 36.6 ng/mL (Normal) Range: 29.95-100.01 Comments: Vitamin D 25(OH) Status Range Deficiency <20 ng/mL (50nmol/L) Insuffciency 20 - 30 ng/mL (50 - 75 nmol/L) Sufficiency 30 - 100 ng/mL (75 - 250 nmol/L) Toxicity >100 ng/mL (>250 nmol/L) 25-Put-84617:27 HgA1C , Office (41906) HgA1C , Office 6.7 % (Normal) Range: 4.6 - 7.1 9-Vob-360314:13 Bedside Glucose Comments: [facility] [address] [place] [address] BEDSIDE GLU 132 mg/dL (Abnormal) Range: 70-110 Comments: MANAGEMENT OF PATIENT CARE PER NURSING PROTOCOL 08-Jan-20180:00 Culture, Bronch Aveolar Lavage Comments: [facility] [address] [place], [address] CUBRL See Note (Normal) Comments: List Antibiotics Last 48 Hours? .List Antibiotics to be Started? .Gram StainGram Stain No White Blood Cells No organisms seen Resp. CultureMixed normal respiratory hermelindo. No Haemophilus, Streptoc occus pneumoniae, beta-hemolytic Streptococcus or Staphylococcus aureus isolated. 32-Iox-310440:06 HgA1C , Office (68877) HgA1C , Office 8.2 % (Abnormal) Range: 4.6 - 7.1 17-Ydm-959204:06 Blood Glucose , Office (21858) Blood Glucose , Office 168 (Normal) 76-Vxd-466652:00 Culture, Fungus 8482 Comments: [place] [address] [place], [address] CUF See Note Comments: PER ORDER, SPUTUM SMEAR/CULTURE FUNGAS Cu,Tdbyvr1211 TESTING PERFORMED AT [facility]. ORIGINAL REPORT ON FILE IN LAB CONTAINS NEO TIONAL TEST (Normal) SITE INFORMATION. CUF Positive Fungus Culture ORGANISM 1: Yana albicansAmount Growth Growth 65-Evr-756003:00 Culture, Sputum Comments: [facility] [address] [place], [place], [id number] CUSP See Note (Normal) Comments: PER ORDER, SPUTUM SMEAR/CULTURE FUNGAS Gram StainAcceptable Specimen? Yes (<25 Epithelial cells per/lpf) Gram Stain 1+ White Blood Cells 1+ Epithelial cells 1+ Gram positive cocci Resp. CultureMixed normal respiratory hermelindo. No Haemophilus, Streptococcus pneumoniae, beta-hemolytic Streptococcus or Staphylococcus aureus isolated. 59-Olv-476881:49 BNP,B-Type NATRIURETIC PEPTIDE Comments: [facility] [address] [place], [address] B-TYPE EB PEP 41.7 pg/mL (Normal) Range: 0-100 45-Icv-560981:30 Rapid Flu (13612 x 2) Influenza A Ag neg (Normal) 0-Puk-807809:14 Bedside Glucose Comments: [facility] [address] [place] [address] BEDSIDE GLU 151 mg/dL (Abnormal) Range: 70-110 Comments: MANAGEMENT OF PATIENT CARE PER NURSING PROTOCOL 07-Dec-20170:00 Culture, Bronch Aveolar Lavage Comments: [facility] [address] [place], [address] CUBRL See Note (Normal) Comments: [...] $ <=20 S(NF) indicates non-formulary drug at [facility]. Approval by Infectious Disease Specialist required before non-formulary drugs may be ordered and/or dispensed. 5-Qln-332581:27 CBC-Complete Blood Cnt No Diff Comments: [facility] [address] [place], [place], [address] MPV 10.0 fL (Normal) Range: 6.2-12.0 PLT [...] 4.2-5.4 WBC 14.0 K/mm3 (Abnormal) Range: 4.4-11.0 6-Jeo-261075:27 Hemoglobin A1c Comments: [facility] [address] [place], [place], [address] HGB A1C 7.9 % (Abnormal) Range: 4.2-6.3 6-Wba-712841:27 Magnesium Comments: [facility] [address] [place], [place], [address] MG 1.9 mg/dL (Normal) Range: 1.8-2.4 6-Lpz-580963:27 Microalb:Creat Ratio,Random UR Comments: [facility] [address] [place], [place], [address] MALB:CREAT 12.0 {mg/g_CRE} (Normal) MICROALBUMIN,UR 11.1 mg/L (Normal) UR CREAT 92.40 mg/dL (Normal) 6-Pqt-854461:27 PTHIN 83.3 pg/mL (Abnormal) Comments: [facility] [address] [place], [address] Range: 18.4-80.1 Comments: Please Note: PTH INTACT METHOD AND REFERENCE RANGE CHANGEEffective 11/18/2017. 4-Tad-945149:27 Renal Profile Comments: [facility] [address] [place], [address] CO2 24.0 mmol/L (Normal) Range: 21.0-32.0 CL [...] 200 mg/dLsuggests DIABETES MELLITUS per A.D.A. criteria. 9-Bdl-259861:27 Uric Acid Comments: [facility] [address] [place], [address] URIC 9.0 mg/dL (Abnormal) Range: 2.6-6.0 Comments: The drugs N-Acetylcysteine and Metamizole may falselydepress this assay. 0-Mjk-788462:27 Vitamin D,25 Hydroxy Comments: [facility] [address] [place], [address] Vitamin D 25-OH 34.1 ng/mL (Normal) Comments: Vitamin D 25(OH) Status Range Deficiency <20 ng/mL (50nmol/L) Insuffciency 20 - 30 ng/mL (50 - 75 nmol/L) Sufficiency 30 - 100 ng/mL (75 - 250 nmol/L) Toxicity >100 ng/mL (>250 nmol/L) 76-Drj-36271:22 THROAT CULTURE (40669) Comments: PATIENT NOT FASTINGPERFORMED BY: [facility] HospitalZwknnx2493 [facility] [id number] Information: SRC:TH Result 1 RRF (Normal) Comments: Routine respiratory hermelindo Upper Respiratory Culture Final report (Normal) 58-Byt-053969:09 Rapid Flu (64943 x 2) Comments: Negative Influenza A Ag negative (Normal) 97-Psc-874164:09 Rapid Strep Test, Office (05542) Comments: Negative Rapid Strep Test, Office Negative (Normal) 36-Noe-126703:52 Microscopic Examination Comments: PATIENT WAS FASTINGPERFORMED BY: [facility] Htcefz3134 [facility] [id number] Bacteria None seen (Normal) Mucus Threads Present (Normal) Epithelial Cells (non renal) 0-10 {/hpf} (Normal) Range: 0 - 10 RBC 0-2 {/hpf} (Normal) Range: 0 - 2 WBC 0-5 {/hpf} (Normal) Range: 0 - 5 34-Lyq-494275:08 Magnesium Comments: [facility] [address] [place], [phone] MG 1.9 mg/dL (Normal) Range: 1.8-2.4 56-Ufn-295694:08 Microalb:Creat Ratio,Random UR Comments: [facility] [address] [place], [address] MALB:CREAT 8.5 {mg/g_CRE} (Normal) MICROALBUMIN,UR 5.2 mg/L (Normal) UR CREAT 61.10 mg/dL (Normal) :08 PTH,INTACT Comments: [facility] [address] [place], [address] PTH,Intact 40 pg/mL (Normal) Range: 14-72 :08 Renal Profile Comments: [facility] [address] [place], [address] CO2 23.0 mmol/L (Normal) Range: 21.0-32.0 CL [...] per A.D.A. criteria. :08 Uric Acid Comments: [facility] [address] [place], [address] URIC 8.0 mg/dL (Abnormal) Range: 2.6-6.0 Comments: The drugs N-Acetylcysteine and Metamizole may falselydepress this assay. :08 Vitamin D,25 Hydroxy Comments: [facility] [address] [place], [address] Vitamin D 25-OH 27.6 ng/mL (Normal) Comments: Vitamin D 25(OH) Status Range Deficiency <20 ng/mL (50nmol/L) Insuffciency 20 - 30 ng/mL (50 - 75 nmol/L) Sufficiency 30 - 100 ng/mL (75 - 250 nmol/L) Toxicity >100 ng/mL (>250 nmol/L) :52 URINALYSIS, W/ MICRO (67925) Comments: PATIENT WAS FASTINGPERFORMED BY: [employer] [facility] [id number] Microscopic Examination See below: (Normal) Comments: Microscopic was indicated and was performed. Nitrite, Urine Negative (Normal) Urobilinogen,Semi-Qn 0.2 mg/dL (Normal) Range: 0.2-1.0 Bilirubin Negative (Normal) Occult Blood Negative (Normal) Ketones Negative (Normal) Glucose 1+ (Abnormal) Protein Negative (Normal) WBC Esterase 1+ (Abnormal) Appearance Clear (Normal) Urine-Color Yellow (Normal) pH 6.5 (Normal) Range: 5.0-7.5 Specific [place] 1.023 (Normal) Range: 1.005-1.030 93-Bpc-496142:52 MICROALBUMIN: CREATININE RATIO Comments: PATIENT WAS FASTINGPERFORMED BY: [employer] [facility] [id number] (08682) AND (00782) Microalb/Creat Ratio 7.6 {mg/g_creat} (Normal) Range: 0.0-30.0 Microalbumin, Urine 6.8 ug/mL (Normal) Creatinine, Urine 89.4 mg/dL (Normal) 24-Mxm-904055:52 METABOLIC PANEL, COMPREHENSIVE Comments: PATIENT WAS FASTINGPERFORMED BY: [employer]70 [facility] [id number] (51526) ALT (SGPT) 22 [iU]/L (Normal) Range: 0-32 [...] Glucose, Serum 99 mg/dL (Normal) Range: 65-99 26-Aml-268282:52 CBC W/AUTO DIFF WBC (31658) Comments: PATIENT WAS FASTINGPERFORMED BY: [facility]CoChrist HospitalVugots4148 [facility] [id number] Immature Grans (Abs) 0.0 {x10E3/uL} (Normal) Range: [...] 3.77-5.28 WBC 13.0 {x10E3/uL} (Abnormal) Range: 3.4-10.8 93-Ats-496078:52 LIPID PANEL (43175) Comments: PATIENT WAS FASTINGPERFORMED BY: [facility] Yfjghp6539 [facility] [id number] LDL/HDL Ratio 1.8 {ratio_units} (Normal) Range: 0.0-3.2 Comments: LDL/HDL Ratio Men Women 1/2 Avg.Risk 1.0 1.5 Av g.Risk 3.6 3.2 2X Avg.Risk 6.2 5.0 3X Avg.Risk 8.0 6.1 LDL Cholesterol Calc 75 mg/dL (Normal) Range: 0-99 VLDL Cholesterol Yamilka 42 mg/dL (Abnormal) Range: 5-40 HDL Cholesterol 41 mg/dL (Normal) Triglycerides 211 mg/dL (Abnormal) Range: 0-149 Cholesterol, Total 158 mg/dL (Normal) Range: 100-199 04-Cmu-634403:52 TSH (12752) Comments: PATIENT WAS FASTINGPERFORMED BY: [facility] Lpmxjx8340 [facility] [id number] TSH 1.390 {uIU/mL} (Normal) Range: 0.450-4.500 08-Jdb-239439:52 CALCIFEDIOL (94388) Comments: PATIENT WAS FASTINGPERFORMED BY: [facility] Ozuywc2005 [facility] [id number] Vitamin D, 25-Hydroxy 38.5 ng/mL (Normal) Range: 30.0-100.0 Comments: Vitamin D deficiency has been defined by the [place] ofMedicine and an Endocrine Society practice guideline as alevel of serum 25-OH vitamin D less than 20 ng/mL (1,2).The Endocrine Society went on to further define vitamin Dinsufficiency as a level between 21 and 29 ng/mL (2).1. IOM ([place] of Medicine). 2010. Dietary reference intakes for calcium and D. [place]: The National Academies Press.2. Stephon MF, Ana ROY, Alka ROMERO, et al. Evaluation, treatment, and prevention of vitamin D deficiency: an Endocrine Society clinical practice guideline. JCEM. 2010; 96(7):1911-30. :32 HgA1C , Office (08625) HgA1C , Office 8.1 % (Abnormal) Range: 4.6 - 7.1 :32 Blood Glucose , Office (61093) Blood Glucose , Office 122 (Normal) :37 Immature Cells Comments: PATIENT WAS FASTINGPERFORMED BY: [facility] [address] [place] [id number] Myelocytes 1 % (Abnormal) Range: 0 - 0 Metamyelocytes 3 % (Abnormal) Range: 0 - 0 :16 PHOSPHORUS (80312) Comments: PATIENT WAS FASTINGPERFORMED BY: [employer] Ekmaab6984 Wu RoadDublin [place] [id number] Phosphorus, Serum 2.8 mg/dL (Normal) Range: 2.5-4.5 :16 MAGNESIUM (69751) Comments: PATIENT WAS FASTINGPERFORMED BY: [facility] Hvbcae6158 [address] [place] [id number] Magnesium, Serum 1.8 mg/dL (Normal) Range: 1.6-2.3 :16 METABOLIC PANEL, COMPREHENSIVE Comments: PATIENT WAS FASTINGPERFORMED BY: [employer]70 [address]bl[address] [place] [id number] (79850) ALT (SGPT) 29 [iU]/L (Normal) Range: 0-32 [...] DIR SMEAR Comments: PATIENT NOT FASTINGPERFORMED BY: [facility] [id number] (65178) Result 1 NOCP (Normal) Comments: No ova, cysts, or parasites seen. Ova + Parasite Exam Final report (Normal) Comments: These results were obtained using wet preparation(s) and trichromestained smear. This test does not include testing for Cryptosporidiumparvum, Cyclospora, or Microsporidia. :34 OCCULT BLOOD FECES SCREEN Comments: PATIENT NOT FASTINGPERFORMED BY: [facility] Ssaujg7042 [facility] [id number] (74457) Occult Blood, Fecal, IA Negative (Normal) :34 LEUKOCYTE COUNT, FECAL (71426) Comments: PATIENT NOT FASTINGPERFORMED BY: [facility] Fhuclk[address] [place] [id number] Result 1 NWBC (Normal) Comments: No white blood cells seen. White Blood Cells (WBC), Final report (Normal) Stool :34 C-DIFFICILE, STOOL (52736) Comments: PATIENT NOT FASTINGPERFORMED BY: CB [facility] Syskif9452 Wu b[address]ive[address] [place] [id number] C difficile Toxins A+B, EIA Negative (Normal) :34 ALFONZO CULTURE-STOOL (84225) Comments: PATIENT NOT FASTINGPERFORMED BY: [facility] Abtqjf4311 Wu [facility] [id number] Information: SRC:ST SRC:ST E coli Shiga Toxin EIA Negative (Normal) Result 1 NCI (Normal) Comments: No Campylobacter species isolated. Campylobacter Culture Final report (Normal) Result 1 NSS (Normal) Comments: No Salmonella or Shigella recovered. Salmonella/Shigella Screen Final report (Normal) 01-Zbu-743755:56 Metabolic Panel, Comprehensive Comments: PATIENT NOT FASTINGPERFORMED BY: [facility] Xedaqn9575 [facility] [id number] (53195) ALT (SGPT) 26 [iU]/L (Normal) Range: 0-32 [...] Glucose, Serum 147 mg/dL (Abnormal) Range: 65-99 31-Xoy-747934:56 CBC, Platelets & Auto Diff Comments: PATIENT NOT FASTINGPERFORMED BY: [facility]CoChrist HospitalNycqwy3753 [facility] [id number] (08504) Immature Grans (Abs) 0.1 {x10E3/uL} (Normal) Range: [...] (Normal) Range: 3.4-10.8 :37 URIC ACID BLOOD (72128) Comments: PATIENT WAS FASTINGPERFORMED BY: [facility]6370 [facility] [id number] Uric Acid, Serum 9.1 mg/dL (Abnormal) Range: 2.5-7.1 Comments: Therapeutic target for gout patients: <6.0 :10 METABOLIC PANEL, COMPREHENSIVE (93898) :37 CBC W/AUTO DIFF WBC (71986) Comments: PATIENT WAS FASTINGPERFORMED BY: [facility] [facility] [id number] Hematology Comments: Note: (Normal) Comments: Manual differential [...] 3.77-5.28 WBC 9.4 {x10E3/uL} (Normal) Range: 3.4-10.8 [id number]:58 Magnesium Comments: [facility] [address] [place], [address] MG 2.0 mg/dL (Normal) Range: 1.8-2.4 Comments: Slight Hemolysis, Result may be falsely increased. 90-Tnc-784377:58 Renal Profile Comments: [facility] [address] [place], [address] CO2 27.0 mmol/L (Normal) Range: 21.0-32.0 CL [...] per A.D.A. criteria. :45 URIC ACID BLOOD (39483) Comments: PATIENT NOT FASTINGPERFORMED BY: LabCoChrist HospitalAymryh5362 [facility] [id number] Uric Acid, Serum 9.6 mg/dL (Abnormal) Range: 2.5-7.1 Comments: Therapeutic target for gout patients: <6.0 :45 RENAL FUNCTION PANEL (74985) Comments: PATIENT NOT FASTINGPERFORMED BY: TrueInsiderChrist HospitalIqyzcn4088 [facility] [id number] Albumin, Serum 4.5 g/dL (Normal) Range: 3.6-4.8 [...] 214 mg/dL (Abnormal) Range: 65-99 :24 CALCIFIDIOL (05516) VIT D 25 Comments: PATIENT WAS FASTINGPERFORMED BY: LabCoChrist HospitalXczxkh7279 [facility] [id number] Vitamin D, 25-Hydroxy 44.9 ng/mL (Normal) Range: 30.0-100.0 Comments: Vitamin D deficiency has been defined by the [place] of[place]icine and an Endocrine Society practice guideline as alevel of serum 25-OH vitamin D less than 20 ng/mL (1,2).The Endocrine Society went on to further define vitamin Dinsufficiency as a level between 21 and 29 ng/mL (2).1. IOM ([place] of Medicine). 2010. Dietary reference intakes for calcium and D. [place]: The National Academies Press.2. Stephon MF, Ana [place], Alka ROMERO, et al. Evaluation, treatment, and prevention of vitamin D deficiency: an Endocrine Society clinical practice guideline. JCEM. 2010; 96(7):1911-30. :39 HgA1C , Office (48938) HgA1C , Office 7.6 % (Abnormal) Range: 4.6 - 7.1 :39 Blood Glucose , Office (54264) Blood Glucose , Office 174 (Normal) :56 TSH (68006) Comments: PATIENT WAS FASTINGPERFORMED BY: [facility] Institute6370 [facility] [id number] TSH 2.180 {uIU/mL} (Normal) Range: 0.450-4.500 :56 LIPID PANEL (51756) Comments: PATIENT WAS FASTINGPERFORMED BY: [facility] Institute6370 [facility] [id number] LDL/HDL Ratio 1.8 {ratio_units} (Normal) Range: 0.0-3.2 [...] Range: 100-199 :36 CBC W/Diff, Automated Comments: [facility] [address] [place], [place], [id number] Absolute Lymph 1.31 {X10_3/ul} (Normal) Range: 0.83-4.51 [...] 4.2-5.4 WBC 10.5 K/mm3 (Normal) Range: 4.4-11.0 9-Bre-180669:36 Magnesium Comments: [facility] [address] [place], [phone] MG 1.9 mg/dL (Normal) Range: 1.8-2.4 1-Mhm-943879:36 Protein+Creatinine Ratio,Urine Comments: [facility] [address] [place], [address] PROT:CRE RATIO 120 {mg/g_CRE} (Normal) Range: 0-200 PROTEIN,UR.RAN. 13.6 mg/dL (Abnormal) UR CREAT 113.00 mg/dL (Normal) 0-Flo-752389:36 PTH,INTACT Comments: [facility] E[address]uxit[address] [place], [phone] PTH,Intact 27 pg/mL (Normal) Range: 14-72 6-Dmz-254352:36 Renal Profile Comments: [facility] [address] [place], [id number] CO2 27.0 mmol/L (Normal) Range: 21.0-32.0 CL [...] per A.D.A. criteria. :36 Uric Acid Comments: [facility] [address] [place], [place], [id number] URIC 7.5 mg/dL (Abnormal) Range: 2.6-6.0 Comments: The drugs N-Acetylcysteine and Metamizole may falsely deressthis assay. 8-Bqr-429084:36 Vitamin D,25 Hydroxy Comments: [facility] [address] [place], [place], [id number] Vitamin D 25-OH 33.9 ng/mL (Normal) Comments: Vitamin D 25(OH) Status Range Deficiency <20 ng/mL (50nmol/L) Insuffciency 20 - 30 ng/mL (50 - 75 nmol/L) Sufficiency 30 - 100 ng/mL (75 - 250 nmol/L) Toxicity >100 ng/mL (>250 nmol/L) :24 Renal Profile Comments: [facility] Y[address] [facility] [place], [address] CO2 24.0 mmol/L (Normal) Range: 21.0-32.0 CL [...] Immature Cells Comments: PATIENT WAS FASTINGPERFORMED BY: [employer]6370 [address] [facility] [id number] Myelocytes 4 % (Abnormal) Range: 0 - 0 :46 Microscopic Examination Comments: PATIENT WAS FASTINGPERFORMED BY: [employer]6370 [facility] [id number] Bacteria Few (Normal) Mucus Threads Present (Normal) Crystal Type Calcium Oxalate (Normal) Crystals Present (Abnormal) Epithelial Cells (non renal) 0-10 {/hpf} (Normal) Range: 0 - 10 RBC 3-10 {/hpf} (Abnormal) Range: 0 - 2 WBC 11-30 {/hpf} (Abnormal) Range: 0 - 5 :47 Sputum Culture (08207) Comments: PATIENT NOT FASTINGPERFORMED BY: [employer] [facility] [id number] Information: SRC:SP Result 1 RRF (Normal) Comments: Routine respiratory hermelindo Lower Respiratory Culture Final report (Normal) :46 CALCIFEDIOL (44393) Comments: PATIENT WAS FASTINGPERFORMED BY: TrueInsiderChrist HospitalWnszsc6105 [facility] [id number] Vitamin D, 25-Hydroxy 32.4 ng/mL (Normal) Range: 30.0-100.0 Comments: Vitamin D deficiency has been defined by the [place] of[place]icine and an Endocrine Society practice guideline as alevel of serum 25-OH vitamin D less than 20 ng/mL (1,2).The Endocrine Society went on to further define vitamin Dinsufficiency as a level between 21 and 29 ng/mL (2).1. IOM ([place] of Medicine). 2010. Dietary reference intakes for calcium and D. [place]: The National Academies Press.2. Stephon MF, Ana [place], Alka ROMERO, et al. Evaluation, treatment, and prevention of vitamin D deficiency: an Endocrine Society clinical practice guideline. JCEM. 2010; 96(7):1911-30. :46 Metabolic Panel, Comprehensive Comments: PATIENT WAS FASTINGPERFORMED BY: [employer]6370 [facility] [id number] (35790) ALT (SGPT) 19 [iU]/L (Normal) Range: 0-32 [...] Glucose, Serum 126 mg/dL (Abnormal) Range: 65-99 77-Bsm-71868:46 CBC WITH MANUAL DIFF Comments: PATIENT WAS FASTINGPERFORMED BY: [facility] Institute6370 [facility] [id number] Information: [id number] (69776) Hematology Comments: Note: (Normal) Comments: Manual differential [...] 14.0 {x10E3/uL} (Abnormal) Range: 3.4-10.8 :46 URINALYSIS (64291) Comments: PATIENT WAS FASTINGPERFORMED BY: [employer] [facility] [id number] Microscopic Examination See below: (Normal) Comments: Microscopic was indicated and was performed. Nitrite, Urine Negative (Normal) Urobilinogen,Semi-Qn 0.2 mg/dL (Normal) Range: 0.2-1.0 Bilirubin Negative (Normal) Occult Blood Negative (Normal) Ketones Negative (Normal) Glucose 2+ (Abnormal) Protein Negative (Normal) WBC Esterase 3+ (Abnormal) Appearance Clear (Normal) Urine-Color Yellow (Normal) pH 6.5 (Normal) Range: 5.0-7.5 Specific [place] 1.022 (Normal) Range: 1.005-1.030 :46 MICROALBUMIN: CREATININE RATIO Comments: PATIENT WAS FASTINGPERFORMED BY: [employer] [facility] [id number] (67919) AND (39019) Microalb/Creat Ratio 10.1 {mg/g_creat} (Normal) Range: 0.0-30.0 Microalbumin, Urine 7.3 ug/mL (Normal) Creatinine, Urine 72.6 mg/dL (Normal) :46 TSH (92531) Comments: PATIENT WAS FASTINGPERFORMED BY: [employer] Nxmtsh3357 [facility] [id number] TSH 2.600 {uIU/mL} (Normal) Range: 0.450-4.500 :46 Lipid Panel (18385) Comments: PATIENT WAS FASTINGPERFORMED BY: [employer] [facility] [id number]; has appt 08/20, will review at that [...] (Normal) Range: 100-199 :49 HgA1C , Office (48564) HgA1C , Office 6.6 % (Normal) Range: 4.6 - 7.1 :49 Blood Glucose , Office (40237) Blood Glucose , Office 113 (Normal) :10 CBC W/Diff, Automated Comments: [facility] [address] [place], [address] Absolute Lymph 1.40 {X10_3/ul} (Normal) Range: 0.83-4.51 [...] (Normal) Range: 4.4-11.0 :10 Magnesium Comments: Comments: [facility] [address] [place], [phone] MG 1.9 mg/dL (Normal) Range: 1.8-2.4 :10 Protein+Creatinine Ratio,Urine Comments: [facility] [address] [place], [address] PROT:CRE RATIO 112 {mg/g_CRE} (Normal) Range: 0-200 PROTEIN,UR.RAN. 8.1 mg/dL (Normal) UR CREAT 72.10 mg/dL (Normal) :10 PTH,INTACT Comments: [facility] [address] [place], [phone] PTH,Intact 29 pg/mL (Normal) Range: 14-72 :10 Renal Profile Comments: Comments: [facility] [address]xp[address] [place], [phone] CO2 25.0 mmol/L (Normal) Range: 21.0-32.0 CL [...] 126 mg/dLsuggests DIABETES MELLITUS per A.D.A. criteria. 74-Ztv-475861:10 Uric Acid Comments: Comments: [facility] [address] [place], [address] URIC 7.1 mg/dL (Abnormal) Range: 2.6-6.0 Comments: The drugs N-Acetylcysteine and Metamizole may falsely deressthis assay. 47-Yiz-428370:10 Vitamin D,25 Hydroxy Comments: [facility] [address] [place], [address] Vitamin D 25-OH 35.5 ng/mL (Normal) Comments: Vitamin D 25(OH) Status Range Deficiency <20 ng/mL (50nmol/L) Insuffciency 20 - 30 ng/mL (50 - 75 nmol/L) Sufficiency 30 - 100 ng/mL (75 - 250 nmol/L) Toxicity >100 ng/mL (>250 nmol/L) 27-Xlk-261705:10 CALCIUM SERUM (78706) Comments: PATIENT NOT FASTINGPERFORMED BY: [employer] Psegsh0917 [facility] [id number] Information: [id number] Calcium, Serum 10.3 mg/dL (Normal) Range: 8.7-10.3 17-Yah-302219:10 MAGNESIUM (56775) Comments: PATIENT NOT FASTINGPERFORMED BY: [employer] Leuduc4985 [place] [id number] Magnesium, Serum 2.1 mg/dL (Normal) Range: 1.6-2.3 :14 Bedside Glucose Comments: [facility] LaboratoryPoint of [address] [place] [address] BEDSIDE GLU 110 mg/dL (Normal) Range: 70-110 Comments: MANAGEMENT OF PATIENT CARE PER NURSING PROTOCOL :26 Metabolic Panel, Basic Comments: PATIENT NOT FASTINGPERFORMED BY: [facility] Njuhmf7659 [facility] [id number] Information: [id number]; will review on 06/04 (62657) Calcium, Serum 10.0 mg/dL (Normal) Range: 8.7-10.3 [...] Glucose, Serum 104 mg/dL (Abnormal) Range: 65-99 97-Czr-262594:39 Magnesium Comments: ORDERED CA AND PTHINDRLUDA ORDERED CBC PTHIN RENAL VITD CRE/PROURIC [facility] [address] [place], [address] MG 2.0 mg/dL (Normal) Range: 1.8-2.4 :39 Protein+Creatinine Ratio,Urine Comments: [facility] [address] [place], [address] PROT:CRE RATIO 188 {mg/g_CRE} (Normal) Range: 0-200 PROTEIN,UR.RAN. < 6.0 mg/dL (Normal) UR CREAT 29.80 mg/dL (Normal) 32-Pou-232875:39 PTH,INTACT Comments: [facility] [address] [place], [address] PTH,Intact 53 pg/mL (Normal) Range: 14-72 :39 Renal Profile Comments: ORDERED CA AND PTHINDR.LUZ ORDERED CBC PTHIN RENAL VITD CRE/PROURIC [facility] [address] [place], [address] CO2 22.0 mmol/L (Normal) Range: 21.0-32.0 CL [...] PTHINDR.LUZ ORDERED CBC PTHIN RENAL VITD CRE/PROURIC [facility] [address] [place], [phone] URIC 7.3 mg/dL (Abnormal) Range: 2.6-6.0 Comments: The drugs N-Acetylcysteine and Metamizole may falsely deressthis assay. 67-Obz-335303:39 Vitamin D,25 Hydroxy Comments: [facility] [address] [place], [phone] Vitamin D 25-OH 52.3 ng/mL (Normal) Comments: Vitamin D 25(OH) Status Range Deficiency <20 ng/mL (50nmol/L) Insuffciency 20 - 30 ng/mL (50 - 75 nmol/L) Sufficiency 30 - 100 ng/mL (75 - 250 nmol/L) Toxicity >100 ng/mL (>250 nmol/L) 0-Dzr-882815:09 URINE CALCIUM KAITLIN TIMED Comments: PATIENT NOT FASTINGPERFORMED BY: [facility] Rjkxfd0769 [facility] [id number] Information: [id number] 2500ML START @6AM FINISH 05/05/16@ 6AM (92027) Calcium, Urine 24hr 45.0 {mg/24_hr} (Abnormal) Range: 100.0-300.0 Calcium, Urine 1.8 mg/dL (Normal) 02-May-20169:30 Fecal Occult Blood , Office (66324) Fecal Occult Blood , Office (Inhouse) negative (Normal) 02-Yne-410501:23 Crystals, Body Fluid Comments: [facility] [address] [place], [address] PATH REV Reviewed (Normal) Comments: Negative for malignant cells.Mixture of calcium pyrophosphate (pseudogout) crystals andnondescript crystals are noted.Johnson Castro M.D. 04/29/16 SOURCE/BF SYNOVIAL (Normal) CRYSTALS/BF SEE PATH REV (Normal) 21-Lfw-027764:23 Culture, Body Fluid Comments: [facility] [address] [place], [phone] CUBF See Note (Normal) Comments: List Antibiotics Last 48 Hours? UNKList Antibiotics to be Started? UNKGram StainCentrifuged Specimen? Culture performed on centrifuged specimen Gram Stain Rare Red Cell Stroma Rare Red Blood Cells No organisms seen Body Fluid CultNO GROWTH IN 14 DAYS Cult, AnaerobicNo growth in 5 days. 27-Bpe-921222:23 GLUCOSE, SYNOVIAL FLUID Comments: ORDERED WRONGSpecimen Source: [...] be integrated into the clinical contextfor interpretation. 95-Lyu-964400:23 Synovial Fluid RBC, WBC AND Comments: [facility] [address] [facility] [place], [address] Diff PATH COM/SYFL March follow (Normal) OTHER [...] COLOR Yellow (Normal) VISCOSITY/SYFL Sl. Viscous (Normal) 0-Kjp-810296:58 CALCIUM SERUM (48249) Comments: PATIENT NOT FASTINGPERFORMED BY: [facility] [id number] Information: [id number] Calcium, Serum 10.6 mg/dL (Abnormal) Range: 8.7-10.3 :10 Microscopic Examination Comments: PATIENT WAS FASTINGPERFORMED BY: [employer]6370 [facility] [id number] Bacteria None seen (Normal) Mucus Threads Present (Normal) Epithelial Cells (non renal) 0-10 {/hpf} (Normal) Range: 0 - 10 RBC None seen {/hpf} (Normal) Range: 0 - 2 WBC 0-5 {/hpf} (Normal) Range: 0 - 5 :10 CALCIFIDIOL (08734) VIT D 25 Comments: PATIENT WAS FASTINGPERFORMED BY: [employer]6370 [facility] [id number] Vitamin D, 25-Hydroxy 63.0 ng/mL (Normal) Range: 30.0-100.0 Comments: Vitamin D deficiency has been defined by the [place] of[place]icine and an Endocrine Society practice guideline as alevel of serum 25-OH vitamin D less than 20 ng/mL (1,2).The Endocrine Society went on to further define vitamin Dinsufficiency as a level between 21 and 29 ng/mL (2).1. IOM ([place] of Medicine). 2010. Dietary reference intakes for calcium and D. [place]: The National Academies Press.2. Stephon MF, [place], [place] ROMERO, et al. Evaluation, treatment, and prevention of vitamin D deficiency: an Endocrine Society clinical practice guideline. JCEM. 2010; 96(7):1911-30. :10 TSH (12974) Comments: PATIENT WAS FASTINGPERFORMED BY: PRATIMA [facility]6370 [facility] [id number] TSH 2.680 {uIU/mL} (Normal) Range: 0.450-4.500 :10 URINALYSIS, W/ MICRO (11825) Comments: PATIENT WAS FASTINGPERFORMED BY: [facility]6370 [facility] [id number] Microscopic Examination See below: (Normal) Comments: Microscopic was indicated and was performed. Microscopic Examination MICRON (Normal) Comments: Microscopic follows if indicated. Nitrite, Urine Negative (Normal) Urobilinogen,Semi-Qn 0.2 mg/dL (Normal) Range: 0.2-1.0 Bilirubin Negative (Normal) Occult Blood Negative (Normal) Ketones Negative (Normal) Glucose 3+ (Abnormal) Protein Negative (Normal) WBC Esterase Negative (Normal) Appearance Clear (Normal) Urine-Color Yellow (Normal) pH 6.5 (Normal) Range: 5.0-7.5 Specific [place] 1.022 (Normal) Range: 1.005-1.030 :10 MICROALBUMIN: CREATININE RATIO Comments: PATIENT WAS FASTINGPERFORMED BY: [facility]6370 [facility] [id number] (39869) AND (32946) Microalb/Creat Ratio 20.5 {mg/g_creat} (Normal) Range: 0.0-30.0 Microalbumin, Urine 20.1 ug/mL (Normal) Comments: Please note reference interval change Creatinine, Urine 97.9 mg/dL (Normal) Comments: Please note reference interval change :10 LIPID PANEL (95258) Comments: PATIENT WAS FASTINGPERFORMED BY: [facility]6370 [facility] [id number] LDL/HDL Ratio 2.0 {ratio_units} (Normal) Range: 0.0-3.2 [...] Cholesterol, Total 141 mg/dL (Normal) Range: 100-199 17-Fkb-58768:10 METABOLIC PANEL, COMPREHENSIVE Comments: PATIENT WAS FASTINGPERFORMED BY: [facility] Kdkduw8143 [facility] [id number]; will review on 04.18 (15443) ALT (SGPT) 18 [iU]/L (Normal) Range: 0-32 [...] DIFF WBC Comments: PATIENT WAS FASTINGPERFORMED BY: LabCoChrist HospitalEethio3434 [facility] [id number] Information: [id number] (05989) Immature Grans (Abs) 0.0 {x10E3/uL} (Normal) Range: [...] (Normal) Range: 3.4-10.8 :02 HgA1C , Office (39365) HgA1C , Office 6.6 % (Normal) Range: 4.6 - 7.1 :02 Blood Glucose , Office (51921) Blood Glucose , Office 142 (Normal) 97-Oav-097704:20 NuSwab Vaginitis Plus Comments: PATIENT NOT FASTINGPERFORMED BY: Lab[address] [id number] Information: [id number] (STD W/O Herpes) (61293) Neisseria gonorrhoeae, YAIR Negative (Normal) Chlamydia trachomatis, YAIR Negative (Normal) Trich vag by YAIR Negative (Normal) Yana glabrata, YAIR Negative (Normal) Comments: This test was developed and its performance characteristics determinedby LabCoIngBoo. It has not been cleared or approved [...] was developed and its performance characteristics determinedby [employer]. It has not been cleared or appro tima by the Food and DrugAdministration. The FDA has determined that such clearance orapproval is not necessary. BVAB 2 Low - 0 {Score} (Normal) Atopobium vaginae Low - 0 {Score} (Normal) 36-Ovv-983381:56 Magnesium Comments: Test performed at:[facility] [address] [place] [address] MG 2.2 mg/dL (Normal) Range: 1.8-2.4 42-Szw-353819:56 Protein+Creatinine Ratio,Urine Comments: Test performed at:[facility] [address] [place] [address] PROT:CRE RATIO 440 {mg/g_CRE} (Abnormal) Range: 0-200 PROTEIN,UR.RAN. 8.1 mg/dL (Normal) UR CREAT 18.20 mg/dL (Normal) 38-Bco-080362:56 Renal Profile Comments: Test performed at:[facility] R[address] [place] [address] 088261 CO2 28.0 mmol/L (Normal) Range: 21.0-32.0 CL [...] Comments: Please note revised CREATININE reference range ybrofkisa66/22/2015. BUN 44 mg/dL (Abnormal) Range: 7-18 GLU 186 mg/dL (Abnormal) Range: 70-110 Comments: Fasting Glucose result greater than or equal to 126 mg/dLsuggests DIABETES MELLITUS per A.D.A. criteria. 78-Koq-187727:56 Uric Acid Comments: Test performed at:[facility] [address] [place] [address] 039041 URIC 6.5 mg/dL (Abnormal) Range: 2.6-6.0 :56 Vitamin D,25 Hydroxy Comments: Test performed at:[facility] Z[address] [place] [address] 421631 Vitamin D 25-OH 67.0 ng/mL (Normal) Comments: Vitamin D 25(OH) Status Range Deficiency <20 ng/mL (50nmol/L) Insuffciency 20 - 30 ng/mL (50 - 75 nmol/L) Sufficiency 30 - 100 ng/mL (75 - 250 nmol/L) Toxicity >100 ng/mL (>250 nmol/L) 38-Afq-847286:01 Rapid Strep Test, Office (54224) Rapid Strep Test, Office Negative (Normal) 62-Lyv-73975:21 HgA1C , Office (04863) HgA1C , Office 6.4 % (Normal) Range: 4.6 - 7.1 :21 Blood Glucose , Office (51328) Blood Glucose , Office 167 (Normal) :01 Microscopic Examination Comments: PATIENT WAS FASTINGPERFORMED BY: [address] [id number] Bacteria Few (Normal) Mucus Threads Present (Normal) Epithelial Cells (non renal) 0-10 {/hpf} (Normal) Range: 0 - 10 RBC 0-2 {/hpf} (Normal) Range: 0 - 2 WBC 6-10 {/hpf} (Abnormal) Range: 0 - 5 :50 Antinuclear Antibodies Direct Comments: PATIENT NOT FASTINGPERFORMED BY: [facility]6370 [facility] [id number] HEIDI Direct Negative (Normal) : C-Reactive Protein, 7.3 mg/L (Abnormal) Comments: PATIENT NOT FASTINGPERFORMED BY: [place] 9035670 [facility] [id number] 50 Quant Range: 0.0-4.9 :50 CBC, Platelet, No Differential Comments: PATIENT NOT FASTINGPERFORMED BY: [address] [id number] Platelets 253 {x10E3/uL} (Normal) Range: 150-379 RDW [...] Panel (14) Comments: PATIENT NOT FASTINGPERFORMED BY: [employer] Jagaba2684 [facility] [id number] Information: [id number] ALT (SGPT) 17 [iU]/L (Normal) Range: 0-32 [...] ng/mL (Normal) Comments: PATIENT NOT FASTINGPERFORMED BY: [employer] Brtzfm0552 [facility] [id number] 50 Serum Comments: A serum folate concentration of less than 3.1 ng/mL isconsidered to represent clinical deficiency. :50 Rheumatoid Arthritis Factor Comments: PATIENT NOT FASTINGPERFORMED BY: [employer] Ffnqbi7066 [facility] [id number] RA Latex Turbid. 10.5 {IU/mL} Range: 0.0-13.9 (Normal) Sedimentation 7 mm/h (Normal) Comments: PATIENT NOT FASTINGPERFORMED BY: [facility]6370 [facility] [id number] :50 Rate-Westergren Range: 0-40 TSH 2.450 {uIU/mL} Comments: PATIENT NOT FASTINGPERFORMED BY: [facility]6370 [facility] [id number] :50 (Normal) Range: 0.450-4.500 Vitamin B12 1684 pg/mL Comments: PATIENT NOT FASTINGPERFORMED BY: [facility]6370 [facility] [id number] :50 (Abnormal) Range: 211-946 Vitamin D, 25-Hydroxy 75.1 ng/mL Comments: PATIENT NOT FASTINGPERFORMED BY: [facility]6370 [facility] [id number] :50 (Normal) Range: 30.0-100.0 Comments: Vitamin D deficiency has been defined by the [place] of[place]icine and an Endocrine Society practice guideline as alevel of serum 25-OH vitamin D less than 20 ng/mL (1,2).The Endocrine Society went on to further define vitamin Dinsufficiency as a level between 21 and 29 ng/mL (2).1. IOM ([place] of Medicine). 2010. Dietary reference intakes for calcium and D. [place]: The National Academies Press.2. Stephon MF, [place], [place] ROMERO, et al. Evaluation, treatment, and prevention of vitamin D deficiency: an Endocrine Society clinical practice guideline. JCEM. 2010; 96(7):1911-30. :57 Lower Respiratory Culture Comments: PATIENT NOT FASTINGPERFORMED BY: [facility]6370 [facility] [id number] Information: SRC:[facility] [id number] Result 1 RRF (Normal) Comments: Routine respiratory hermelindo Lower Respiratory Culture Final report (Normal) :01 MICROALBUMIN: CREATININE RATIO Comments: PATIENT WAS FASTINGPERFORMED BY: [employer] Dkhamx0041 [facility] [id number] (96530) AND (16407) Microalb/Creat Ratio 22.8 {mg/g_creat} (Normal) Range: 0.0-30.0 Microalbumin, Urine 18.8 ug/mL (Abnormal) Range: 0.0-17.0 Creatinine, Urine 82.6 mg/dL (Normal) Range: 15.0-278.0 : URINALYSIS (28848) Comments: PATIENT WAS FASTINGPERFORMED BY: [employer] Vlkrlu9607 [facility] [id number] Microscopic Examination See below: (Normal) Comments: Microscopic was indicated and was performed. Nitrite, Urine Negative (Normal) Urobilinogen,Semi-Qn 0.2 mg/dL (Normal) Range: 0.0-1.9 Bilirubin Negative (Normal) Occult Blood Negative (Normal) Ketones Negative (Normal) Glucose 2+ (Abnormal) Protein Negative (Normal) WBC Esterase Trace (Abnormal) Appearance Clear (Normal) Urine-Color Yellow (Normal) pH 6.5 (Normal) Range: 5.0-7.5 Specific [place] 1.020 (Normal) Range: 1.005-1.030 :01 Metabolic Panel, Comments: PATIENT WAS FASTINGPERFORMED BY: [facility] Fennhm4356 [facility] [id number] Information: [id number], [id number] Comprehensive (99257) ALT (SGPT) 17 [iU]/L (Normal) Range: 0-32 [...] 110 mg/dL (Abnormal) Range: 65-99 :01 CALCIFEDIOL (39101) Comments: PATIENT WAS FASTINGPERFORMED BY: [employer]70 [address] [facility] [id number] Vitamin D, 25-Hydroxy 101.0 ng/mL (Abnormal) Range: 30.0-100.0 Comments: Vitamin D deficiency has been defined by the [place] of[place]icine and an Endocrine Society practice guideline as alevel of serum 25-OH vitamin D less than 20 ng/mL (1,2).The Endocrine Society went on to further define vitamin Dinsufficiency as a level between 21 and 29 ng/mL (2).1. IOM ([place] of Medicine). 2010. Dietary reference intakes for calcium and D. [place]: The National Academies Press.2. Stephon MF, Ana NC, Alka ROMERO, et al. Evaluation, treatment, and prevention of vitamin D deficiency: an Endocrine Society clinical practice guideline. JCEM. 2010; 96(7):1911-30. :01 Lipid Panel (30343) Comments: PATIENT WAS FASTINGPERFORMED BY: [employer]6370 [facility] [id number] LDL/HDL Ratio 1.4 {ratio_units} (Normal) Range: 0.0-3.2 [...] (Normal) Range: 100-199 :06 HgA1C , Office (73498) HgA1C , Office 6.4 % (Normal) Range: 4.6 - 7.1 :06 Blood Glucose , Office (17992) Blood Glucose , Office 168 (Normal) :43 CBC W/Diff, Automated Comments: Test performed at:[facility] [address] [place] [address] Absolute Lymph 1.33 {X10_3/ul} (Normal) Range: 0.83-4.51 [...] Range: 4.4-11.0 :43 Magnesium Comments: Test performed at:[facility] [address] [place] [address] 14462 MG 1.6 mg/dL (Abnormal) Range: 1.8-2.4 :43 Protein+Creatinine Ratio,Urine Comments: Test performed at:[facility] [address] [place] [address] [id number] PROT:CRE RATIO 143 {mg/g_CRE} (Normal) Range: 0-200 PROTEIN,UR.RAN. 16.0 mg/dL (Abnormal) UR CREAT 111.6 mg/dL (Normal) :43 Renal Profile Comments: Test performed at:[facility] [address] [place] [address] 415471 CO2 29.0 mmol/L (Normal) Range: 21.0-32.0 CL [...] criteria. :43 Uric Acid Comments: Test performed at:[facility] [address] [place], [place] [id number] URIC 7.5 mg/dL (Abnormal) Range: 2.6-6.0 :43 Vitamin D,25 Hydroxy Comments: Test performed at:[facility] [address] [place], [place] [id number] Vitamin D 25-OH 48.0 ng/mL (Normal) Comments: Vitamin D 25(OH) Status Range Deficiency <20 ng/mL (50nmol/L) Insuffciency 20 - 30 ng/mL (50 - 75 nmol/L) Sufficiency 30 - 100 ng/mL (75 - 250 nmol/L) Toxicity >100 ng/mL (>250 nmol/L) :16 HgA1C , Office (22106) HgA1C , Office 5.6 % (Normal) Range: 4.6 - 7.1 :16 Blood Glucose , Office (60384) Blood Glucose , Office 113 (Normal) :35 CALCIUM SERUM (04113) Comments: PATIENT NOT FASTINGPERFORMED BY: [employer] [id number] Information: [id number] Calcium, Serum 10.0 mg/dL (Normal) Range: 8.6-10.2 :55 HEIDI Negative (Normal) Comments: Performed at: [facility] [id number] Director: Taurus Morrissey MD, Phone: [phone] :[phone] CBCD ALC 1.15 {X10_3/ul} (Normal) Range: [...] ttHEBSAG Negative (Normal) Comments: Performed at: - Lab[address] [id number] Director: Taurus Morrissey MD, Phone: [phone] at: [facility]Co[address] [id number] 1Lab Director: Juan Carlos Mathew MD, Phone: [phone] :[phone] HECAB tHECAB 0.1 {s/co_ratio} (Normal) Range: 0.0-0.9 Comments: Negative: < 0.8Indeterminate 0.8 - 0.9Positive: > 0.9In order to reduce the incidence of a false positiveresult, the CDC recommends that all s/co ratiosbetween 1.0 and 10.9 be confirmed by a more specificsupplemental or PCR testing. [facility] offers HCV Abw/Reflex to Verification test #[id number]. :55 RF < 10.0 {IU/mL} (Normal) :55 SED tSEDRATE 7 mm/h (Normal) Range: 0-30 :55 VITD 45.5 mg/mL (Normal) Comments: Vitamin D 25(OH) Status RangeDeficiency <20 ng/mL (50nmol/L)Insuffciency 20 - 30 ng/mL (50 - 75 nmol/L)Sufficiency 30 - 100 ng/mL (75 - 250 nmol/L)Toxicity >100 ng/mL (>250 nmol/L) :05 CALCIFEDIOL (00584) Comments: PATIENT NOT FASTINGPERFORMED BY: [facility]6370 [facility] [id number] Information: [id number] Vitamin D, 25-Hydroxy 34.1 ng/mL (Normal) Range: 30.0-100.0 Comments: Vitamin D deficiency has been defined by the [place] of[place] Cliniccine and an Endocrine Society practice guideline as alevel of serum 25-OH vitamin D less than 20 ng/mL (1,2).The Endocrine Society went on to further define vitamin Dinsufficiency as a level between 21 and 29 ng/mL (2).1. IOM ([place] of Medicine). 2010. Dietary reference intakes for calcium and D. [place]: The National Academies Press.2. Stephon MF, Ana NC, Alka ROMERO, et al. Evaluation, treatment, and prevention of vitamin D deficiency: an Endocrine Society clinical practice guideline. JCEM. 2010; 96(7):1911-30. :05 CALCIUM SERUM (90355) Comments: PATIENT NOT FASTINGPERFORMED BY: [facility]6370 [facility] [id number] Calcium, Serum 10.3 mg/dL (Abnormal) Range: 8.6-10.2 :43 CALCIFIDIOL (64561) VIT D Comments: PATIENT NOT FASTINGPERFORMED BY: [facility]6370 [facility] [id number] Information: [id number] 25 Vitamin D, 25-Hydroxy 44.7 ng/mL (Normal) Range: 30.0-100.0 Comments: Vitamin D deficiency has been defined by the [place] ofMedicine and an Endocrine Society practice guideline as alevel of serum 25-OH vitamin D less than 20 ng/mL (1,2).The Endocrine Society went on to further define vitamin Dinsufficiency as a level between 21 and 29 ng/mL (2).1. IOM ([place] of Medicine). 2010. Dietary reference intakes for calcium and D. [place]: The National Academies Press.2. Stephon MF, Ana ROY, Alka ROMERO, et al. Evaluation, treatment, and prevention of vitamin D deficiency: an Endocrine Society clinical practice guideline. JCEM. 2010; 96(7):1911-30. 60-Nqk-437587:36 URINE CALCIUM KAITLIN TIMED Comments: PATIENT NOT FASTINGPERFORMED BY: [facility]6370 [facility] [id number] Information: [id number] 1950ML START 05/21@630AM FINISH 05/22/14@6 30AM 24 Hour (37267) Calcium, Urine 24hr 93.6 {mg/24_hr} (Abnormal) Range: 100.0-300.0 Calcium, Urine 4.8 mg/dL (Normal) 60-Zhv-688204:43 PARATHORMONE (53851) Comments: PATIENT NOT FASTINGPERFORMED BY: [facility]6370 [facility] [id number] PTH, Intact 22 pg/mL (Normal) Range: 15-65 88-Afe-81427:56 Metabolic Panel, Basic Comments: drawn next ; PATIENT NOT FASTINGPERFORMED BY: [facility]6370 [facility] [id number] Information: [id number] (28074) Calcium, Serum 10.5 mg/dL (Abnormal) Range: 8.6-10.2 [...] Glucose, Serum 113 mg/dL (Abnormal) Range: 65-99 4-Zsh-262841:50 METABOLIC PANEL, Comments: PATIENT NOT FASTINGPERFORMED BY: [facility]CoSoc[facility] HospitalVcjyeo6416 [facility] [id number] Information: [id number] COMPREHENSIVE (35020) ALT (SGPT) 22 [iU]/L (Normal) Range: 0-32 [...] (Abnormal) Range: 65-99 :13 HgA1C , Office (40341) HgA1C , Office 6.5 % (Normal) Range: 4.6 - 7.1 :13 Blood Glucose , Office (01536) Blood Glucose , Office 163 (Normal) :41 [...] CREATININE RATIO Comments: PATIENT WAS FASTINGPERFORMED BY: [facility] [id number] (78248) AND (09259) Microalb/Creat Ratio 6.2 {mg/g_creat} (Normal) Range: 0.0-30.0 Microalbumin, Urine 2.2 ug/mL (Normal) Range: 0.0-17.0 Creatinine, Urine 35.7 mg/dL (Normal) Range: 15.0-278.0 :38 URINALYSIS (92205) Comments: PATIENT WAS FASTINGPERFORMED BY: [employer]6370 [facility] [id number] Microscopic Examination MICRON (Normal) Comments: Microscopic follows if indicated. Nitrite, Urine Negative (Normal) Urobilinogen,Semi-Qn 0.2 mg/dL (Normal) Range: 0.0-1.9 Bilirubin Negative (Normal) Occult Blood Negative (Normal) Ketones Negative (Normal) Glucose Negative (Normal) Protein Negative (Normal) WBC Esterase Negative (Normal) Appearance Clear (Normal) Urine-Color Yellow (Normal) pH 7.5 (Normal) Range: 5.0-7.5 Specific [place] 1.010 (Normal) Range: 1.005-1.030 :38 CALCIFEDIOL (82839) Comments: PATIENT WAS FASTINGPERFORMED BY: [facility] [id number] Vitamin D, 25-Hydroxy 44.7 ng/mL (Normal) Range: 30.0-100.0 Comments: Vitamin D deficiency has been defined by the [place] of[place]icine and an Endocrine Society practice guideline as alevel of serum 25-OH vitamin D less than 20 ng/mL (1,2).The Endocrine Society went on to further define vitamin Dinsufficiency as a level between 21 and 29 ng/mL (2).1. IOM ([place] of Medicine). 2010. Dietary reference intakes for calcium and D. [place]: The National Academies Press.2. Stephon MF, Ana ROY, Alka ROMERO, et al. Evaluation, treatment, and prevention of vitamin D deficiency: an Endocrine Society clinical practice guideline. JCEM. 2010; 96(7):1911-30. :38 TSH (34153) Comments: PATIENT WAS FASTINGPERFORMED BY: [facility] Jitxqi0613 [facility] [id number] TSH 2.930 {uIU/mL} (Normal) Range: 0.450-4.500 :38 CBC with manual diff Comments: PATIENT WAS FASTINGPERFORMED BY: [facility] Bmtedz4264 [facility] [id number] Information: [id number] (70936) Immature Grans (Abs) 0.0 {x10E3/uL} (Normal) Range: [...] Comprehensive Comments: PATIENT WAS FASTINGPERFORMED BY: [facility] Ywffqu2678 [facility] [id number] (50296) ALT (SGPT) 22 [iU]/L (Normal) Range: 0-32 [...] Glucose, Serum 92 mg/dL (Normal) Range: 65-99 05-Ptg-59635:38 Lipid Panel (34142) Comments: PATIENT WAS FASTINGPERFORMED BY: [facility]iderChrist HospitalPowxln5178 [facility] [id number] LDL/HDL Ratio 1.2 {ratio_units} (Normal) Range: 0.0-3.2 LDL Cholesterol Calc 53 mg/dL (Normal) Range: 0-99 VLDL Cholesterol Yamilka 27 mg/dL (Normal) Range: 5-40 HDL Cholesterol 45 mg/dL (Normal) Comments: According to ATP-III Guidelines, HDL-C >59 mg/dL is considered anegative risk factor for CHD. Triglycerides 135 mg/dL (Normal) Range: 0-149 Cholesterol, Total 125 mg/dL (Normal) Range: 100-199 73-Zix-32556:05 LIPID PANEL (20237) Comments: PATIENT WAS FASTINGPERFORMED BY: [facility]iderChrist HospitalYaonod6351 [facility] [id number] Information: [id number] LDL/HDL Ratio 1.6 {ratio_units} (Normal) Range: 0.0-3.2 LDL Cholesterol Calc 76 mg/dL (Normal) Range: 0-99 VLDL Cholesterol Yamilka 30 mg/dL (Normal) Range: 5-40 HDL Cholesterol 49 mg/dL (Normal) Comments: According to ATP-III Guidelines, HDL-C >59 mg/dL is considered anegative risk factor for CHD. Triglycerides 148 mg/dL (Normal) Range: 0-149 Cholesterol, Total 155 mg/dL (Normal) Range: 100-199 85-Dql-022197:43 FECAL OCCULT HGB ASSAY- tubes sent home (70170) FECAL OCCULT HGB ASSAY, QUAL, 1-3 SIMULTANEOU negative (Normal) 51-Mga-641819:40 Nuclear Stress Test Radiology Report See Note [...] The patient was injected with 31.6 mCi [id number] Cardiolite and subsequently stress SPECT Cardiolite nuclear [...] Wiliam MASON by Mayur FELIX,Yosi on 07/29/13 5422 Sign by: Yosi Merchant MD 48-Eui-16377:52 KNEE 1 OR 2 VIEWS Radiology Report [...] Ferguson M.D.July 29, 2013 at 5:00:35 PM [id number] Signed RU/RU If you are the referring phys ician and would like to consult with theradiologist who provided this interpretation, please contact Alejandro Horton at [phone]. If this radiologist is unavailable, youwillbe directed to [facility] radiologist to assist. If you are a patient with a question regarding this report, pleasecontactyour referring physician directly. Professional Interpretation Provided By: [employer], Phone , These documents contain legally protected [...] on 07/29/131714 Si gn by: Ag Ferguson 67-Doe-35785:52 KNEE 1 OR 2 VIEWS Radiology Report [...] Ferguson M.D.July 29, 2013 at 5:02:45 PM [id number] Signed RU/RU If you are the referring physician and would like to consult with therad iologist who provided this interpretation, please contact Alejandro Horton at [phone]. If this radiologist is unavailable, youwillbe directed to another radiologist to assist. If you are a sandra ent with a question regarding this report, pleasecontactyour referring physician directly. Professional Interpretation Provided By: [employer], Phone , These documents con tain legally [...] Ferguson on 07/29/131716 Sign by: Ag Ferguson 05-Itk-334860:27 CCP ANTIBODY (39054) Comments: PATIENT NOT FASTINGPERFORMED BY: [employer] Labzumatek6370 [facility] [id number] BY: [facility] [id number] CCP Antibodies IgG/IgA 5 {units} (Normal) Range: 0-19 Comments: Negative <20 Weak positive 20 - 39 Moderate positive 40 - 59 Strong positive >59 03-Dhk-039812:27 SED RATE ERYTHROCYTE Comments: PATIENT NOT FASTINGPERFORMED BY: [facility] Dxvknp4467 [facility] [id number] BY: [facility] [id number] (06325) Sedimentation Rate-Westergren 2 mm/h (Normal) Range: 0-40 44-Stl-449490:27 C-REACTIVE PROTEIN Comments: PATIENT NOT FASTINGPERFORMED BY: [employer] LabFoxtrotrp Bsljxy4329 [facility] [id number] BY: [facility] [id number] (31843) C-Reactive Protein, Quant 2.1 mg/L (Normal) Range: 0.0-4.9 56-Nck-476251:27 TSH (22986) Comments: PATIENT NOT FASTINGPERFORMED BY: CB LabFoxtrotrp Khfnwi4837 [facility] [id number] BY: [address] [id number] TSH 1.630 {uIU/mL} (Normal) Range: 0.450-4.500 82-Zbh-464843:27 RHEUMATOID FACTOR-QUANT Comments: PATIENT NOT FASTINGPERFORMED BY: [facility]ider[facility] [place] 9068470 [facility] [id number] BY: [address] [id number] (26010) RA Latex Turbid. 9.7 {IU/mL} (Normal) Range: 0.0-13.9 36-Deb-369749:27 HEIDI (ANTINUCLEAR ANTIBODY) Comments: PATIENT NOT FASTINGPERFORMED BY: LabFoxtrotAlan Ville 9068470 [facility] [id number] BY: [address] [id number] (09248) HEIDI Direct Negative (Normal) :27 CBC WITH MANUAL DIFF Comments: PATIENT NOT FASTINGPERFORMED BY: [facility] [id number] BY: [address] [id number] Inf ormation: [id number] (70047) Immature Grans (Abs) 0.0 {x10E3/uL} (Normal) Range: [...] 3.77-5.28 WBC 8.5 {x10E3/uL} (Normal) Range: 4.0-10.5 28-Xjz-533720:27 METABOLIC PANEL, Comments: PATIENT NOT FASTINGPERFORMED BY: CB [facility] Sgigry2667 [facility] [id number] BY: BN [facility] [address] [id number] [facility] (05268) ALT (SGPT) 24 [iU]/L (Normal) Range: 0-32 [...] (Normal) Range: 65-99 :22 HgA1C , Office (71805) HgA1C , Office 5.9 % (Normal) Range: 4.6 - 7.1 :22 Blood Glucose , Office (34528) Blood Glucose , Office 148 (Normal) Comments: non fasting :44 MAGNESIUM (26566) Comments: copy to dr jose mayes; PATIENT NOT FASTINGPERFORMED BY: [employer]70 [facility] [id number] Magnesium, Serum 2.0 mg/dL (Normal) Range: 1.6-2.6 :44 Metabolic Panel, Basic Comments: copy to dr jose Mayes; PATIENT NOT FASTINGPERFORMED BY: [employer] LabFoxtrot Kitewv5638 [facility] [id number] Information: [id number] (20777) Calcium, Serum 10.1 mg/dL (Normal) Range: 8.6-10.2 [...] Glucose, Serum 141 mg/dL (Abnormal) Range: 65-99 06-Wtv-120108:10 PTT (Activated Partial Comments: PATIENT NOT FASTINGPERFORMED BY: [place] 9035670 [facility] [id number] Thromboplastin Time) (91277) aPTT 30 {sec} (Normal) Range: 24-33 Comments: This test has not been validated for monitoring unfractionated heparintherapy. aPTT-based therapeutic ranges for unfractionated heparintherapy have not been established. For general guidelines onHeparin monitoring, refer to the [facility] [employer] of Services. 72-Ljs-150201:10 PT (Prothrobim Time) Comments: PATIENT NOT FASTINGPERFORMED BY: [address] [id number] Information: [id number] (30055) Prothrombin Time 10.4 {sec} (Normal) Range: 9.1-12.0 INR 1.0 (Normal) Range: 0.8-1.2 Comments: Reference interval is for non-anticoagulated patients. . Suggested INR therapeutic range for Vitamin K anta gonist therapy: Standard Dose (moderate intensity therapeutic range): 2.0 - 3.0 Higher intensity therapeutic range 2.5 - 3.5 49-Kek-271863:10 Potassium Serum (23649) Comments: PATIENT NOT FASTINGPERFORMED BY: [place] 9035670 [facility] [id number] Potassium, Serum 3.9 mmol/L (Normal) Range: 3.5-5.2 47-Dzo-520296:10 Magnesium (91865) Comments: PATIENT NOT FASTINGPERFORMED BY: [place] 9035670 [facility] [id number] Magnesium, Serum 1.9 mg/dL (Normal) Range: 1.6-2.6 :59 HgA1C , Office (19542) HgA1C , Office 5.7 % (Normal) Range: 4.6 - 7.1 :59 Blood Glucose , Office (92760) Blood Glucose , Office 149 (Normal) :08 TSH (87309) Comments: PATIENT WAS FASTINGPERFORMED BY: [address] [id number] TSH 2.390 {uIU/mL} (Normal) Range: 0.450-4.500 :08 URINALYSIS, W/ MICRO (71119) Comments: PATIENT WAS FASTINGPERFORMED BY: [facility]InsiderChrist HospitalUcbvok0336 [facility] [id number] Microscopic Examination See below: (Normal) Microscopic Examination MICRON (Normal) Comments: Microscopic follows if indicated. Nitrite, Urine Negative (Normal) Urobilinogen,Semi-Qn 0.2 mg/dL (Normal) Range: 0.0-1.9 Bilirubin Negative (Normal) Occult Blood Negative (Normal) Ketones Negative (Normal) Glucose Negative (Normal) Protein Negative (Normal) Appearance Clear (Normal) WBC Esterase Negative (Normal) pH 7.5 (Normal) Range: 5.0-7.5 Specific [place] 1.013 (Normal) Range: 1.005-1.030 Urine-Color Yellow (Normal) :08 MICROALBUMIN: CREATININE RATIO Comments: PATIENT WAS FASTINGPERFORMED BY: [facility]iderSocorro General HospitalUoquel6701 [facility] [id number] (90790) AND (95599) Microalb/Creat Ratio 3.8 {mg/g_creat} (Normal) Range: 0.0-30.0 Microalbumin, Urine 2.9 ug/mL (Normal) Range: 0.0-17.0 Creatinine, Urine 77.3 mg/dL (Normal) Range: 15.0-278.0 :08 METABOLIC PANEL, COMPREHENSIVE Comments: PATIENT WAS FASTINGPERFORMED BY: [facility]InsiderChrist HospitalFqniai5878 [facility] [id number] (49069) ALT (SGPT) 17 [iU]/L (Normal) Range: 0-32 [...] mg/dL (Abnormal) Range: 65-99 :08 LIPID PANEL (00035) Comments: PATIENT WAS FASTINGPERFORMED BY: [employer] [facility] [id number] LDL/HDL Ratio 2.1 {ratio_units} (Normal) Range: 0.0-3.2 [...] MANUAL DIFF Comments: PATIENT WAS FASTINGPERFORMED BY: [employer] Fubali7748 [facility] [id number] Information: ADD [id number] AND DRAW FEE 99 2033 (37729) Immature Grans (Abs) 0.0 {x10E3/uL} (Normal) Range: [...] Microscopic Examination Comments: PATIENT WAS FASTINGPERFORMED BY: LabCoChrist HospitalPlugia1549 [facility] [id number] Bacteria None seen (Normal) Mucus Threads Present (Normal) Epithelial Cells (non renal) 0-10 {/hpf} (Normal) Range: 0 - 10 RBC 0-3 {/hpf} (Normal) Range: 0 - 3 WBC 0-5 {/hpf} (Normal) Range: 0 - 5 :49 HgA1C , Office (42373) HgA1C , Office 5.8 % (Normal) Range: 4.6 - 7.1 17-Gzy-97534:49 Blood Glucose , Office (45887) Blood Glucose , Office 142 (Normal) 4-Uys-960164:13 ALFONZO CULTURE-OTHER (46249) Comments: PATIENT NOT FASTINGPERFORMED BY: [facility]pointB[place] 3786470 [facility] [id number] Information: SRC:THRT [id number] Result 1 RRF (Normal) Comments: Routine respiratory hermelindo Upper Respiratory Culture Final report (Normal) 9-Hlw-597050:30 Rapid Strep Test, Office (39016) Rapid Strep Test, Office Negative (Normal) 48-Rzy-685777:36 URIC ACID BLOOD (92222) Comments: PATIENT NOT FASTINGPERFORMED BY: [facility] [id number] Information: [id number] Uric Acid, Serum 6.6 mg/dL (Normal) Range: 2.5-7.1 Comments: Therapeutic target for gout patients: <6.0 :29 Blood Glucose , Office (80679) Blood Glucose , Office 128 (Normal) :29 HgA1C , Office (88556) HgA1C , Office 5.5 % (Normal) Range: 4.6 - 7.1 07-Cvp-767462:11 HgA1C , Office (72863) HgA1C , Office 5.5 % (Normal) Range: 4.6 - 7.1 89-Bdg-082680:11 Blood Glucose , Office (56561) Blood Glucose , Office 127 (Normal) :35 Microscopic Examination Comments: PATIENT WAS FASTINGPERFORMED BY: [facility]6370 [facility] [id number] Bacteria Few (Normal) Mucus Threads Present (Normal) Cast Type Hyaline casts (Normal) Casts Present {/lpf} (Abnormal) Epithelial Cells (non renal) 0-10 {/hpf} (Normal) Range: 0 - 10 RBC 0-3 {/hpf} (Normal) Range: 0 - 3 WBC 6-10 {/hpf} (Abnormal) Range: 0 - 5 :35 TSH (06187) Comments: PATIENT WAS FASTINGPERFORMED BY: [facility]6370 [facility] [id number] TSH 1.550 {uIU/mL} (Normal) Range: 0.450-4.500 :35 URINALYSIS, W/ MICRO (18103) Comments: PATIENT WAS FASTINGPERFORMED BY: [facility]6370 [facility] [id number] Microscopic Examination See below: (Normal) Nitrite, Urine Negative (Normal) Urobilinogen,Semi-Qn 0.2 mg/dL (Normal) Range: 0.0-1.9 Bilirubin Negative (Normal) Occult Blood Negative (Normal) Ketones Negative (Normal) Glucose Negative (Normal) Protein Negative (Normal) WBC Esterase 1+ (Abnormal) Appearance Clear (Normal) Urine-Color Yellow (Normal) pH 6.5 (Normal) Range: 5.0-7.5 Specific [place] 1.019 (Normal) Range: 1.005-1.030 :35 MICROALBUMIN: CREATININE RATIO Comments: PATIENT WAS FASTINGPERFORMED BY: [facility]6370 [facility] [id number] (58376) AND (87566) Microalb/Creat Ratio 7.8 {mg/g_creat} (Normal) Range: 0.0-30.0 Microalbumin, Urine 17.2 ug/mL (Abnormal) Range: 0.0-17.0 Creatinine, Urine 220.8 mg/dL (Normal) Range: 15.0-278.0 :35 METABOLIC PANEL, COMPREHENSIVE Comments: PATIENT WAS FASTINGPERFORMED BY: [facility]6370 [facility] [id number] (99801) ALT (SGPT) 17 [iU]/L (Normal) Range: 0-40 [...] mg/dL (Normal) Range: 65-99 :35 LIPID PANEL (79237) Comments: PATIENT WAS FASTINGPERFORMED BY: [employer]70 [facility] [id number] LDL/HDL Ratio 1.0 {ratio_units} (Normal) Range: 0.0-3.2 [...] MANUAL DIFF Comments: PATIENT WAS FASTINGPERFORMED BY: [employer]70 [facility] [id number] Information: [id number] (45347) Immature Grans (Abs) 0.0 {x10E3/uL} (Normal) Range: [...] (Normal) Range: 4.0-10.5 :33 HgA1C , Office (01775) HgA1C , Office 5.7 % (Normal) Range: 4.6 - 7.1 :33 Blood Glucose , Office (84979) Blood Glucose , Office 115 (Normal) 84-Rua-855634:50 KIDNEY Radiology Report See Note (Normal) Comments: [...] 07/19/11 0430 Sign by: Marciano Fountain MD 12-Den-097896:50 PARATHORMONE (19779) Comments: PATIENT NOT FASTINGPERFORMED BY: LabCoChrist HospitalEdtbgt5973 [facility] [id number] PTH, Intact 20 pg/mL (Normal) Range: 15-65 78-Ckn-326367:50 Metabolic Panel, Comments: PATIENT NOT FASTINGPERFORMED BY: PRATIMA [facility] Ddfjho3591 [facility] [id number] Information: [id number] Comprehensive (92094) ALT (SGPT) 23 [iU]/L (Normal) Range: 0-40 [...] Glucose, Serum 94 mg/dL (Normal) Range: 65-99 79-Scd-093106:06 Metabolic Panel, Comments: PATIENT NOT FASTINGPERFORMED BY: [employer] Jmkdye9393 [facility] [id number] Information: [id number] Comprehensive (97973) ALT (SGPT) 30 [iU]/L (Normal) Range: 0-40 [...] METABOLIC PANEL, Comments: PATIENT WAS FASTINGPERFORMED BY: [employer]6370 [facility] [id number] Information: [id number] COMPREHENSIVE (75512) ALT (SGPT) 27 [iU]/L (Normal) Range: 0-40 [...] Glucose, Serum 85 mg/dL (Normal) Range: 65-99 77-Uym-68888:17 LIPID PANEL (37175) Comments: PATIENT WAS FASTINGPERFORMED BY: LabCoChrist HospitalFxqqes8438 [facility] [id number] LDL/HDL Ratio 1.1 {ratio_units} (Normal) Range: 0.0-3.2 LDL Cholesterol Calc 46 mg/dL (Normal) Range: 0-99 VLDL Cholesterol Yamilka 28 mg/dL (Normal) Range: 5-40 HDL Cholesterol 41 mg/dL (Normal) Comments: According to ATP-III Guidelines, HDL-C >59 mg/dL is considered anegative risk factor for CHD. Triglycerides 140 mg/dL (Normal) Range: 0-149 Cholesterol, Total 115 mg/dL (Normal) Range: 100-199 :38 Blood Glucose , Office (55120) Blood Glucose , Office 132 (Normal) :38 HgA1C , Office (98242) HgA1C , Office 5.7 % (Normal) Range: 4.6 - 7.1 83-Wku-288929:01 BILAT SCRN DIGITAL & CAD Radiology Report [...] 1051 S ign by: Anam Larios MD 48-Zck-176048:01 DEXA BONE DENSITY STUDY (HP) Radiology Report [...] FECAL OCCULT HGB ASSAY- tubes sent home (03965) FECAL OCCULT HGB ASSAY, QUAL, 1-3 SIMULTANEOU negative (Normal) :32 HgA1C , Office (06990) HgA1C , Office 8.6 % (Abnormal) Range: 4.6 - 7.1 :32 Blood Glucose , Office (04971) Blood Glucose , Office 324 (Normal) :30 [...] {uIU/mL} (Normal) Range: 0.358-3.74 :45 CULTURE, SPUTUM (61898) Comments: PATIENT NOT FASTINGPERFORMED BY: [facility]6370 [facility] [id number] Information: SRC:[facility] [id number] Result 1 RRF (Normal) Comments: Routine respiratory hermelindo Lower Respiratory Culture Final report (Normal) :48 HgA1C , Office (06706) HgA1C , Office 5.8 % (Normal) Range: 4.6 - 7.1 :48 Blood Glucose , Office (12012) Blood Glucose , Office 124 (Normal) :20 CHEST WITH CONTRAST Radiology Report See Note (Normal) Comments: Exam Number: [id number] CLINICAL:Sarcoidosis, shortness of breath, wheezing CT CHEST [...] allunchanged. Previous cholecystectomy? Reported By: PO MANCILLA 93-Mia-66881:15 SERUM CRE & GFR EST GFR - AA 65 mL/min (Normal) EST GFR 54 mL/min (Abnormal) CREAT,SERUM 1.1 mg/dL (Abnormal) Range: 0.6-1.0 95-Ilq-643533:42 CHEST, PA AND LATERAL (MT) Radiology Report See Note (Normal) Comments: Exam Number: [id number] CHEST X- RAY PA AND LATERAL VIEWS [...] moderate dextroscoliotic curvature. Reported By: Joseph Núñez 60-Qea-336756:15 MAGNESIUM (02627) Comments: PATIENT NOT FASTINGPERFORMED BY: [employer]70 [facility] [id number] Magnesium, Serum 2.1 mg/dL (Normal) Range: 1.6-2.6 72-Lnt-325706:15 Renal function Panel Comments: PATIENT NOT FASTINGPERFORMED BY: [employer]6370 [facility] [id number] Information: [id number] (70137) Albumin, Serum 4.7 g/dL (Normal) Range: 3.5-5.5 [...] (Abnormal) Range: 65-99 :46 HgA1C , Office (67136) HgA1C , Office 6.0 % (Normal) Range: 4.6 - 7.1 :46 Blood Glucose , Office (20206) Blood Glucose , Office 140 (Normal) :27 [...] T PROT 7.8 g/dL (Normal) Range: 6.4-8.2 99-Mko-151146:11 CBC with manual diff Comments: PATIENT NOT FASTINGPERFORMED BY: LabCoChrist HospitalWtbkuh1107 [facility] [id number] Information: [id number] (40064) Baso (Absolute) 0.0 {x10E3/uL} (Normal) Range: 0.0-0.2 [...] 3.80-5.10 WBC 9.0 {x10E3/uL} (Normal) Range: 4.0-10.5 09-Msx-631145:55 Microscopic Examination Comments: PATIENT WAS FASTINGPERFORMED BY: S7 AA Party [facility] [id number] BY: [employer] Sun[employer] CorporationSt. Louis Behavioral [facility] Institute [id number] Bacteria Few (Normal) Cast Type Hyaline casts (Normal) Mucus Threads Present (Normal) Casts Present {/lpf} (Abnormal) Epithelial Cells (non renal) 0-10 {/hpf} (Normal) Range: 0 - 10 RBC 0-3 {/hpf} (Normal) Range: 0 - 3 WBC 0-5 {/hpf} (Normal) Range: 0 - 5 74-Mcn-733592:34 HgA1C , Office (78187) HgA1C , Office 5.9 % (Normal) Range: 4.6 - 7.1 82-Ufj-083528:34 Blood Glucose , Office (23806) Blood Glucose , Office 140 (Normal) 25-Mdo-374085:55 TSH (46496) Comments: PATIENT WAS FASTINGPERFORMED BY: S7 [employer]2500 [facility] [id number] BY: TrueInsiderChrist HospitalWswcmy3715 [facility] [id number] TSH 0.541 {uIU/mL} (Normal) Range: 0.450-4.500 Comments: Effective December 24, 2009, TSH reference interval for11 - 19 years will be changing to: 0.450 - 4.500 uIU/mLReference interval for all other ages will NOT be affected. :55 URINALYSIS, W/ MICRO Comments: PATIENT WAS FASTINGPERFORMED BY: [facility] HospitalMompery[address] [id number] BY: [employer] [facility] [id number] (14729) Bilirubin Negative (Normal) Microscopic Examination See below: (Normal) Microscopic Examination MICRON (Normal) Comments: Microscopic follows if indicated. Nitrite, Urine Negative (Normal) Occult Blood Negative (Normal) Urobilinogen,Semi-Qn 0.2 mg/dL (Normal) Range: 0.0-1.9 Glucose Negative (Normal) Ketones Negative (Normal) Protein Negative (Normal) WBC Esterase Negative (Normal) Appearance Clear (Normal) pH 6.0 (Normal) Range: 5.0-7.5 Specific [place] 1.020 (Normal) Range: 1.005-1.030 Urine-Color Yellow (Normal) :55 MICROALBUMIN: CREATININE Comments: PATIENT WAS FASTINGPERFORMED BY: [employer] [id number] BY: TrueInsiderSocorro General HospitalItycmp2364 [facility] [id number] RATIO (33878) AND (68873) Microalb/Creat Ratio 7.1 {mg/g_creat} (Normal) Range: 0.0-30.0 Microalbumin, Urine 8.6 ug/mL (Normal) Range: 0.0-17.0 Creatinine, Urine 120.9 mg/dL (Normal) Range: 15.0-278.0 :55 METABOLIC PANEL, Comments: PATIENT WAS FASTINGPERFORMED BY: [employer] [address] [id number] BY: [facility] HospitalFoxtrotAlan Ville 9068470 [facility] [id number] COMPREHENSIVE (74889) ALT (SGPT) 24 [iU]/L (Normal) Range: 0-40 [...] Glucose, Serum 105 mg/dL (Abnormal) Range: 65-99 14-Xry-955671:55 LIPOPROTEIN, BLD, BY NMR Comments: PATIENT WAS FASTINGPERFORMED BY: Sarah [employer] Hvg9008 Lavelle ZambranoThe Outer Banks Hospital [id number] BY: PRATIMA [facility]6370 [facility] [id number] Information: [id number] (10985) Large VLDL-P 2.9 nmol/L (Abnormal) Comments: Small [...] 1599High 1600 - 2000Very high > 2000. 19-Ngo-609445:55 CBC WITH MANUAL DIFF Comments: PATIENT WAS FASTINGPERFORMED BY: Sarah [employer] Wcz1571 [facility] [id number] BY: PRATIMA LabCoChrist HospitalWqakft2795 [facility] [id number] (79489) Baso (Absolute) 0.0 {x10E3/uL} (Normal) Range: 0.0-0.2 [...] KIDNEY DISEASE, STAGE IV (SEVERE) : Reviewed Veneer Stacker Letter Indication: CHRONIC KIDNEY DISEASE, STAGE IV (SEVERE) Diabetic autonomic neuropathy associated with type 2 diabetes mellitus : Follow up in 3 months Indication: Diabetic autonomic neuropathy associated with type 2 diabetes mellitus Chronic kidney disease, stage III (moderate) : Reviewed Veneer Stacker Letter Indication: Chronic kidney disease, stage III [...] sequela Aspiration of food, sequela : Reviewed Veneer Stacker Letter- sibila and bronch Indication: Aspiration of [...] Diagnostic Tests Indication: Sarcoidosis Sarcoidosis : Reviewed Veneer Stacker Letter Indication: Sarcoidosis DM (diabetes mellitus), type 1, uncontrolled, with renal complications : Follow up in 3 months Indication: DM (diabetes mellitus), type 1, uncontrolled, with renal complications DM (diabetes mellitus), type 1, uncontrolled, with renal complications : Reviewed Lab Indication: DM (diabetes mellitus), type 1, uncontrolled, with renal complications Asthma : Continue Current Prescription(s) Indication: Asthma Asthma : Reviewed Veneer Stacker Letter Indication: Asthma CHRONIC KIDNEY DISEASE, STAGE IV (SEVERE) : Reviewed Veneer Stacker Letter Indication: CHRONIC KIDNEY DISEASE, STAGE IV [...] GERD (gastroesophageal reflux disease) Asthma : Reviewed Veneer Stacker Letter Indication: Asthma Asthma : Continue Current Prescription(s) Indication: Asthma DM (diabetes mellitus), type 1, uncontrolled, with renal complications : Follow up in 3 months- do ekg Indication: DM (diabetes mellitus), type 1, uncontrolled, with renal complications Chronic kidney disease, stage III (moderate) : Reviewed Veneer Stacker Letter Indication: Chronic kidney disease, stage III [...] typeII,controlled, renal comp Atrial fibrillation : Reviewed Veneer Stacker Letter Indication: Atrial fibrillation Hypercholesteremia : Reviewed [...] Indication: Impacted fracture Impacted fracture : Reviewed Veneer Stacker Letter Indication: Impacted fracture Hypertension with renal [...] kidney disease, stage III (moderate) : Reviewed Veneer Stacker Letter- Dr Ribeiro Indication: Chronic kidney disease, [...] kidney disease, stage III (moderate) : Reviewed Veneer Stacker Letter Indication: Chronic kidney disease, stage III [...] kidney disease, stage III (moderate) : Reviewed Veneer Stacker Letter Indication: Chronic kidney disease, stage III [...] kidney disease, stage III (moderate) : Reviewed Veneer Stacker Letter Indication: Chronic kidney disease, stage III [...] kidney disease, stage III (moderate) : Reviewed Veneer Stacker Letter-- dr ribeiro Indication: Chronic kidney disease, [...] kidney disease, stage III (moderate) : Reviewed Veneer Stacker Letter: Dr ribeiro Indication: Chronic kidney disease, stage III (moderate) Diabetes mellitus type II, controlled : *Diabetes Education Indication: Diabetes mellitus type II, controlled Hypercholesteremia : Cholesterol mgmt Indication: Hypercholesteremia Hypertension with renal disease : Diet, Exercise, and Wt loss Indication: Hypertension with renal disease Hypertension with renal disease : HTN/CAD Red Flags Indication: Hypertension with renal disease Aspiration pneumonia : Reviewed Veneer Stacker Letter Indication: Aspiration pneumonia Aspiration pneumonia : [...] kidney disease, stage III (moderate) : Reviewed Veneer Stacker Letter Indication: Chronic kidney disease, stage III [...] kidney disease, stage III (moderate) : Reviewed Veneer Stacker Letter- w/u in progress Indication: Chronic kidney [...] reflux disease) Planned Observations METABOLIC PANEL, COMPREHENSIVE (03961)Indication: Medication monitoring encounter On: 7-Xhm-928440:10 Request Parathyroid Hormone-related Peptide (PTH-rP) (16923)Indication: Hypercalcemia On: :40 Request Comments: send copy dr ribeiro CALCIUM SERUM (38126)Indication: Hypercalcemia On: :40 Request Comments: send copy to dr ribeiro ELECTROLYTES, 24 HOUR URINE (01865)Indication: Hypercalcemia On: 0-Ota-960817:49 Request POTASSIUM SERUM (34056)Indication: Hypercalcemia On: 5-Yvx-333278:48 Request Parathyroid Hormone-related Peptide (PTH-rP) (20953)Indication: Hypercalcemia On: :48 Request CALCIUM SERUM (57877)Indication: Hypercalcemia On: 8-Oko-612515:48 Request CALCIUM URINE 91376 (40020)Indication: Hypercalcemia On: :06 Request Comments: 24 hr urine ELECTROLYTES, 24 HOUR URINE (13076)Indication: Hypercalcemia On: :06 Request FECAL OCCULT- Tubes sent home (86821)Indication: Encounter for screening for malignant neoplasm of colon (Renamed from Special screening for malignant neoplasms, colon) On: 16-Hqk-580663:47 Request Lipid Panel (77685)Indication: Hypercholesteremia On: 0-Znz-964887:02 Request CALCIFIDIOL (83274) VIT D 25Indication: FATIGUE On: 5-Bol-050262:38 Request Folate (76667)Indication: FATIGUE On: 5-Mvn-606489:38 Request VITAMIN B-12 (CYANOCOBALAMIN) (75605)Indication: FATIGUE On: 5-Sjh-933999:38 Request TSH (59702)Indication: FATIGUE On: :38 Request SED RATE ERYTHROCYTE (94927)Indication: FATIGUE On: :38 Request RHEUMATOID FACTOR-QUANT (55752)Indication: FATIGUE On: :38 Request METABOLIC PANEL, COMPREHENSIVE (74506)Indication: FATIGUE On: :38 Request C-REACTIVE PROTEIN (01627)Indication: FATIGUE On: :38 Request CBC (AUTO) (13187)Indication: FATIGUE On: :38 Request HEIDI (ANTINUCLEAR ANTIBODY) (06569)Indication: FATIGUE On: :38 Request CULTURE, SPUTUM (33740)Indication: Cough On: 1-Tar-907357:08 Request Metabolic Panel, Comprehensive (45892)Indication: Diabetes mellitus type 2, uncontrolled, without complications On: 98-Pcl-882440:21 Request FECAL OCCULT HGB ASSAY- tubes sent home (89638)Indication: Encounter for Medicare annual wellness exam On: 37-Lxq-51752:58 Request CALCIFIDIOL (59598) VIT D 25Indication: Vitamin D deficiency On: 42-Wqe-22101:48 Request MAGNESIUM (83959)Indication: Hypomagnesemia On: 20-Ldp-14312:47 Request URINE ALFONZO CULTURE (KAIT[place] COL COUNT) (21872)Indication: Abdominal pain On: 87-Ifd-105428:37 Request Urinalysis, Office (76801)Indication: Abdominal pain On: 70-Chw-216454:37 Request FECAL OCCULT HGB ASSAY- tubes sent home (16943)Indication: Encounter for Medicare annual wellness exam On: 75-Isl-55312:56 Request Metabolic Panel, Basic (78294)Indication: Chronic kidney disease, stage III (moderate) On: 23-Xst-973463:11 Request POTASSIUM SERUM (20392)Indication: Hypokalemia On: 79-Yco-01432:13 Request TSH (17883)Indication: Diabetes mellitus type II, controlled On: 0-Oay-428583:01 Request URINALYSIS, W/ MICRO (46515)Indication: Diabetes mellitus type II, controlled On: 8-Zss-564773:01 Request MICROALBUMIN: CREATININE RATIO (26551) AND (11536)Indication: Diabetes mellitus type II, controlled On: : Request METABOLIC PANEL, COMPREHENSIVE (79821)Indication: Diabetes mellitus type II, controlled On: : Request LIPID PANEL (07162)Indication: Diabetes mellitus type II, controlled On: Request CBC WITH MANUAL DIFF (11366)Indication: Diabetes mellitus type II, controlled On: Request LIPOPROTEIN, BLD, BY NMR (43150)Indication: Hypercholesteremia On: : Request LIPID PANEL (36090)Indication: Hypercholesteremia On: : Request Comments: do in 3 months HEPATIC FUNCTION PANEL (02731)Indication: Hypercholesteremia On: Request LIPID PANEL (39520)Indication: Hypertension, benign On: :33 Request Planned Encounters Medical; 3 Month FU - On: 08-Nov-2018 8:45 [facility] Veronica Oquendo DO, DO, Kathleen Planned Procedures Solu -Medrol Injection, 125 mg On: 18-Aug-2018 Intent (J2930)By: Kassandra Fortune CNP Flu Vaccine (Quadrivalent) 88752Qm: On: 09-Aug-2018 Intent Veronica Oquendo DO, DO, Comments: Lot #[id number]-L dltd, IMDose prefilled syringegiven by:ANTOINE Munoz reviewed and ABN signed Veronica ELECTROCARDIOGRAM, COMPLETE (ECG) On: 09-Aug-2018 Intent (17401)By: Veronica Oquendo DO Comments: nsr - RBBB - no t acute Veronica Oquendo DO SBWC-JK-HWDJ BEHAVIORAL COUNSELING On: 09-Apr-2018 Intent FOR OBESITY, 15 MINUTES (G0447)By: Veronica Oquendo DO, DO, Kathleen SCREENING DIGITAL TOMOSYNTHESIS OF On: 09-Apr-2018 Intent BREAST (57043)By: Veronica Oquendo DO, DO, Kathleen Solu- Medrol Injection, 125mg On: 01-Jan-2018 Intent (J2930)By: Veronica Oquendo DO Comments: 125mg - 1 ucfqO112597/2020R hip, IMJoaquina Stanton, SALES CONTRACT ADMINISTRATOR Veronica Oquendo DO CHEST XRAY, PA & LATERAL (32826)By: On: 23-Dec-2017 Intent Veronica Oquendo DO, DO, Kathleen CHEST XRAY, PA & LATERAL (14026)By: On: 22-Dec-2017 Intent Kelsea Lund Aerosol Treatment (24023)By: On: 22-Dec-2017 Intent Kelsea Lund Comments: Still has wheezing in right lobe after aerosol treatment. Aerosol Treatment (15452)By: Azra On: 25-Nov-2017 Veronica Pabon DO, DO, Kathleen Comments: more a/e less reactivity 0-no wheeze but still that Rub in RLL area Solu- Medrol Injection, 125mg On: 25-Nov-2017 Intent (J2930)By: Veronica Oquendo DO Comments: [id number], 1vialMLONG SALES CONTRACT ADMINISTRATOR Veronica Oquendo DO Solu- Medrol Injection, 125mg On: 27-Oct-2017 Intent (J2930)By: Kelsea Lund Comments: solumedrol 125mg injectionlot: [id number]: 10/2019L GMpt tolerated wellAD SALES CONTRACT ADMINISTRATOR Aerosol Treatment (92643)By: On: 27-Oct-2017 Intent Kelsea Lund Comments: expiratory wheeze after albuterol aerosol treatment. EKG (12249)By: Veronica Oquendo DO On: 14-Oct-2017 Intent Veronica Oquendo DO Comments: nsr no acute chg- RBBB Aerosol Treatment (43404)By: Azra On: 14-Aug-2017 Veronica Pabon DO, DO, Kathleen Comments: no noise and more a/e Solu- Medrol Injection, 125mg On: 14-Aug-2017 Intent (J2930)By: Veronica Oquendo DO Comments: lot [id number] mgright gmIMas, SALES CONTRACT ADMINISTRATOR Veronica Oquendo DO Solu- Medrol Injection, 125mg On: 05-Aug-2017 Intent (J2930)By: Veronica Oquendo DO Comments: Lot:[id number]:11/17Dose:125mgRoute:imSite:r hipGiven By:MICHAEL signed Veronica Oquendo DO Flu Vaccine (Quadrivalent) 58102Jw: On: 28-Jul-2017 Intent Veronica Oquendo DO, DO, Kathleen ELECTROCARDIOGRAM, COMPLETE (ECG) On: 28-Jul-2017 Intent (00797)By: Veronica Oquendo DO, DO, Kathleen IV Needle placement (04936)By: On: 14-Jul-2017 Intent Kassandra Fortune CNP ORTHOSTATIC BLOOD PRESSURE On: 14-Jul-2017 Intent ASSESSMENT (21756)By: Kassandra Fortune CNP INFUSION, NORMAL SALINE SOLUTION , On: 14-Jul-2017 Intent 1000 CC (Special Coverage Instructions Apply. See MCM: 2049) (J7030)By: Kassandra Fortune CNP Solu -Medrol Injection, 125 mg On: 22-Jun-2017 Intent (J2930)By: Kelsea Lund Solu- Medrol Injection, 125mg On: 17-Apr-2017 Intent (J2930)By: Veronica Oquendo DO Comments: Lot:[id number]:04/2019Dose:125mgRoute:imSite:l armGiven By:NOE signed Veronica Oquendo DO DEXA SCAN AXIAL SKELETON (72491)By: On: 06-Apr-2017 Intent Veronica Oquendo DO, DO, Kathleen SCREENING DIGITAL TOMOSYNTHESIS OF On: 06-Apr-2017 Intent BREAST (24575)By: Veronica Oquendo DO, DO, Kathleen Flu Vaccine (Quadrivalent) 79596Zk: On: 20-Aug-2016 Intent Veronica Oquendo DO, DO, Comments: FLUlot: [id number]:05/29/17site:Lt deltoidroute:IMdose:.5mlVALENTINA MOBLEY Solu- Medrol Injection, 125mg On: 20-Aug-2016 Intent (J2930)By: Veronica Oquendo DO Comments: solumedrollot:[id number]:03/18site:lt glutroute:IMdose:125mgDVALENTINA Calderón DO, Kathleen Solu -Medrol Injection, 125 mg On: 13-Aug-2016 Intent (J2930)By: Kassandra Fortune CNP Comments: Lot:[id number]:02/2019Dose:125mgRoute:imSite:l hip Given By:NOE signed Aerosol Treatment (50936)By: Irma On: 13-Aug-2016 Intent Clarisse SCHWARZ Radiology - Shoulder - LeftBy: Devika On: 04-Jul-2016 Intent Kassandra LUU Radiology - Knee - LeftBy: Devika On: 04-Jul-2016 Intent Kassandra LUU Comments: send result to Dr. Delgadillo Toradol Injection, 30 mg (J1885)By: On: 04-Jul-2016 Intent Kassandra Fortune CNP Aerosol Treatment (91117)By: Azra On: 12-May-2016 Veronica Pabon DO, DO, Kathleen Comments: less cough and more a./e- no wheeze Solu- Medrol Injection, 125mg On: 12-May-2016 Intent (J2930)By: Veronica Oquendo DO Comments: lot: [id number]: 12/18site/route: RGM/IMamt: 2mLVIS signed when applicableChelsea, Veronica Gillis DO CT - Chest (IV Contrast Needed)By: On: 09-May-2016 Intent Veronica Oquendo DO, DO, Kathleen Radiology - Chest- PA and LatBy: On: 08-May-2016 Intent Veronica Oquendo DO, DO, Veronica PNEUM VAC ADLT/IMUMNOSPR, SBC/INTRM On: 21-Apr-2016 Intent (61301)By: Veronica Oquendo DO Comments: pneumovaxlot:[id number]:09/06/17site:lt deltroute:IMD.VALENTINA Dunlap DO, Kathleen GPSJ-BX-TKZX BEHAVIORAL COUNSELING On: 21-Apr-2016 Intent FOR OBESITY, 15 MINUTES (G0447)By: Veronica Oquendo DO, DO, Kathleen MAMMOGRAM, SCREENING, BOTH BREAST On: 21-Apr-2016 Intent (39559)By: Veronica Oquendo DO, DO, Kathleen Radiology - Knee - RightBy: Azra On: 14-Apr-2016 Intent Veronica JEAN-BAPTISTE DO, Kathleen Radiology - Knee - LeftBy: Azra On: 14-Apr-2016 Veronica Pabon DO, DO, Kathleen ADMINISTRATION OF INFLUENZA VIRUS On: 09-Aug-2015 Intent VACCINE (G0008)By: Veronica Oquendo DO, DO, Kathleen Flu Vaccine (Quadrivalent) 40144Yo: On: 09-Aug-2015 Intent Veronica Oquendo DO, DO, Comments: Lot:[id number]:02/27/16Dose:0.5mLRoute:IMSite:L DltdGiven By:NOE signed Veronica Solu -Medrol Injection, 125 mg On: 03-Aug-2015 Intent (J2930)By: Veronica Oquendo DO Comments: Lot:[id number]:12/2017Dose:125mgRoute:imSite:l armGiven By:NOE signed Veronica Oquendo DO Aerosol Treatment (61829)By: Azra On: 03-Aug-2015 Veronica Pabon DO, DO, Kathleen Comments: more a/e after aerosol EKG (61238)By: Veronica Oquendo DO On: 19-Jul-2015 Veronica Wren DO Comments: ming botello -- no new twave chg when compared to old ones Aerosol Treatment (37993)By: Azra On: 30-Apr-2015 Intent , Veronica Jurado DO Radiology - Chest- PA and LatBy: On: 27-Apr-2015 Intent Veronica Oquendo DO, DO, Kathleen DEXA SCAN AXIAL SKELETON (51795)By: On: 17-Apr-2015 Intent Veronica Oquendo DO, DO, Kathleen INTENSIVE BEHAVIORAL THERAPY TO On: 17-Apr-2015 Intent REDUCE CARDIOVASCULAR DISEASE RISK, INDIVIDUAL, NLOR-OL-NRCC, ANNUAL, 15 MINUTES (G0446)By: Veronica Oquendo DO, DO, Kathleen YDPK-KU-LMNH BEHAVIORAL COUNSELING On: 17-Apr-2015 Intent FOR OBESITY, 15 MINUTES (G0447)By: Veronica Oquendo DO, DO, Kathleen MAMMOGRAM, SCREENING, BOTH BREAST On: 17-Apr-2015 Intent (12306)By: Veronica Oquendo DO, DO, Kathleen EKG (20274)By: Veronica Oquendo DO On: 16-Aug-2014 Intent Veronica Oquendo DO Comments: nsr nonspecif st and t wave chg old not new Radiology - Chest- PA and LatBy: On: 15-May-2014 Intent Azra DOVeronica Azra DO, Veronica Toradol Injection, 30 mg (J1885)By: On: 12-May-2014 Intent Kassandra Fortune CNP Comments: Lot:[id number]:10/30/15Dose:30mgRoute:imSite:r hipGiven By:NOE signed Eprescribed prescriptions (G8553)By: On: 01-May-2014 Intent Veronica Oquendo DO DO, Veronica MAMMOGRAM, SCREENING, BOTH BREASTS On: 18-Apr-2014 Intent (67675)By: Veronica Oquendo DOon DOVeronica YIVD-PB-GFIE BEHAVIORAL COUNSELING On: 18-Apr-2014 Intent FOR OBESITY, 15 MINUTES (G0447)By: Veronica Oquendo DO Azra DO Veronica Eprescribed prescriptions (G8553)By: On: 11-Apr-2014 Intent Veronica Oquendo DO Azra DO, Veronica Pulse Oximetry (27803)By: Azra JEAN-BAPTISTE, On: 11-Apr-2014 Intent Veronica Oquendo DO, Veronica Aerosol Treatment (88274)By: Devika On: 27-Sep-2013 Intent BELL Dasia OIFU-PS-ERIX BEHAVIORAL COUNSELING On: 12-Sep-2013 Intent FOR OBESITY, 15 MINUTES (G0447)By: Veronica Oquendo DO Azra DO, Veronica MAMMOGRAM, SCREENING, BOTH BREASTS On: 12-Sep-2013 Intent (65166)By: Kelsea Richards LPN DRAIN/INJECT MAJOR JOINT OR BURSA On: 24-Aug-2013 Intent ()By: Kelsea Richards LPN Comments: [id number] exp 08/13 DRAIN/INJECT MAJOR JOINT OR BURSA On: 24-Aug-2013 Intent ()By: Kelsea Richards LPN Comments: lt knee lot [id number] exp 08/13 DRAIN/INJECT MAJOR JOINT OR BURSA On: 18-Aug-2013 Intent ()By: Kelsea Richards LPN Comments: lt knee lot [id number] exp 07/13 DRAIN/INJECT MAJOR JOINT OR BURSA On: 18-Aug-2013 Intent ()By: Kelsea Richards LPN Comments: rt knee lot [id number] exp 07-13 FLU VAC, SPLIT, >3 YEARS, INTRAMUSC On: 10-Aug-2013 Intent (25919)By: Veronica Oquendo DO Comments: lot [id number] 2013site/route L sabas, IMamt 0.5mlVIS and ABN signed when applicableSTARR Lui DO, Kathleen ADMINISTRATION OF INFLUENZA VIRUS On: 10-Aug-2013 Intent VACCINE (G0008)By: Sania Ritchie DRAIN/INJECT MAJOR JOINT OR BURSA On: 10-Aug-2013 Intent ()By: Kelsea Richards LPN Comments: euflexxa injection lt knee lot [id number] exp 07/13 DRAIN/INJECT MAJOR JOINT OR BURSA On: 10-Aug-2013 Intent ()By: Kelsea Richards LPN Comments: euflexxa injection rt knee lot [id number] exp 07/13 Solu- Medrol Injection, 125mg On: 03-Aug-2013 Intent (J2930)By: Veronica Oquendo DO Comments: injected over Left sciatic area - most tender spot marked - no bleed pt tolerated well -- 08/03/13 lot # Veronica Oquendo DO Eprescribed prescriptions (G8553)By: On: 03-Aug-2013 Intent Sania Ritchie Kenalog Injection, 10 mgm On: 21-Jul-2013 Intent (J3301)By: Veronica Oquedno DO Comments: used 40 mglot: [id number]: 02/11site/route: RGM/IMamt: 40VIS signed when applicableSTARR Lui DO, Kathleen Nuclear Stress Test/Stress On: 21-Jul-2013 Intent SPECT/AdenosineBy: Azra JEAN-BAPTISTE, Comments: needs adenosine - bc 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 Veronica Jurado DO Echo CompleteBy: Veronica Oquendo DO On: 21-Jul-2013 Intent Veronica Oquendo DO Spirometry (79292)By: Azra JEAN-BAPTISTE, On: 21-Jul-2013 Intent Veronica Jurado DO Comments: mild obstruction EKG (90190)By: Veronica Oquendo DO On: 21-Jul-2013 Intent Veronica Oquendo DO Comments: nsr no acute chg - t wave inversion ant septal leads - st depression in lateral precordial leads CNFX-PZ-TMYZ BEHAVIORAL COUNSELING On: 21-Jul-2013 Intent FOR OBESITY, [...] Intent (J2930)By: Kassandra Fortune CNP Comments: Lot: [id number]: 12/2015Amt: 125mgRoute: IMSite: RUOQ glutealGiven by: CHONG Canas EKG (63867)By: Veronica Oquendo DO On: 11-Apr-2013 Intent Veronica Oquendo DO Comments: nsr no acute chg the same nonspecific st flattening in v1v2 are presnet on old ekg's Spirometry (65586)By: Azra JEAN-BAPTISTE, On: 11-Apr-2013 Intent Veronica Jurado DO Comments: such poor technique cnt report a FEV Eprescribed prescriptions (G8553)By: On: 16-Sep-2012 Intent Kelsea Richards LPN FLU VAC, SPLIT, >3 YEARS, INTRAMUSC On: 02-Sep-2012 Intent ([id number])By: Veronica Oquendo DO Comments: Lot #[id number]-left deltoidgiven by: CHONG Patrick DO, Kathleen ADMINISTRATION OF INFLUENZA VIRUS On: 02-Sep-2012 Intent VACCINE ([id number])By: Veronica Oquendo DO, DO, Kathleen [id number] BEHAVIORAL COUNSELING On: 02-Sep-2012 Intent FOR OBESITY, 15 MINUTES ([id number])By: Veronica Oquendo DO, DO, Kathleen SPECIMEN HNDLNG/TRNSPRT, OFFC > LAB On: 04-Aug-2012 Intent ([id number])By: Suki Gutiérrez LPN MAMMOGRAM, SCREENING, BOTH BREASTS On: 28-Jul-2012 Intent ([id number])By: Veronica Oquendo DO, DO, Kathleen EKG ([id number])By: Veronica Oquendo DO On: 17-Jun-2012 Intent Veronica Oquendo DO Comments: nsr no acute chg Overnight Pulse Ox([id number])By: Mast On: 11-May-2012 Intent Suzy RUIZ Spirometry ([id number])By: Azra JEAN-BAPTISTE, On: 17-Mar-2012 Intent Veronica Jurado DO Comments: poor technique- stable -- FLU VAC, SPLIT, >3 YEARS, INTRAMUSC On: 01-Sep-2011 Intent ([id number])By: Kelsea Richards LPN Comments: given at health clinic not here Eprescribed prescriptions ([id number])By: On: 29-Jul-2011 Intent Kelsea Richards LPN Ultrasound - RenalBy: Devika LUU, On: 15-Jul-2011 Intent Dasia PNEUM VAC ADLT/IMUMNOSPR, SBC/INTRM On: 09-May-2011 Intent ([id number])By: Veronica Oquendo DO, DO, Kathleen IMMUNIZ ADMNIN, 1 VAC, SNGL/COMBO On: 09-May-2011 Intent ([id number])By: Veronica Oquendo DO, DO, Kathleen DXA, BONE DENSITY, AXIAL SKELETON On: 09-May-2011 Intent ([id number])By: Kelsea Richards LPN MAMMOGRAM, SCREENING, BOTH BREASTS On: 09-May-2011 Intent ([id number])By: Kelsea Richards LPN Clinical Breast Examination On: 09-May-2011 Intent ([id number])By: Kelsea Richards LPN TDAP VACCINE >7 IM ([id number])By: Azra On: 16-Apr-2011 Veronica Pabon DO, DO, Kathleen Comments: Lot #[id number]-right deltoidgiven by: Alisa Vee LPN PULMONARY STRESS TEST/SIMPLE On: 04-Mar-2011 Intent ([id number])By: Veronica Oquendo DO Comments: pt unable to complete fulol test due to shortess of breath. Pt completed 3 minutes of assessment. hh Veronica Oquendo DO EKG ([id number])By: Veronica Oquendo DO On: 03-Mar-2011 Intent Veronica Oquendo DO Comments: nsr no acute changes Pulse Oximetry ([id number])By: Devika LUU, On: 29-Jan-2011 Intent Kassandra Vargas Solu- Medrol Injection, 125mg On: 29-Jan-2011 Intent ([id number])By: Kassandra Fortune CNP Pulse Oximetry ([id number])By: Bernardo RN, On: 29-Jan-2011 Intent Suzy IMMUNIZ ADMNIN, 1 VAC, SNGL/COMBO On: 04-Sep-2010 Intent ([id number])By: Lisa Blood FLU VAC, SPLIT, >3 YEARS, INTRAMUSC On: 04-Sep-2010 Intent ([id number])By: Lisa Blood Comments: Lot:[id number]:02/2011Dose:0.5MLRoute:IMSite:left deltoidGiven by: VALENTINA Saleem CT - Chest (IV Contrast Needed)By: On: 20-Jun-2010 Intent Veronica Oquendo DO, DO, Kathleen Echo CompleteBy: Veronica Oquendo DO On: 20-Jun-2010 Intent Veronica Oquendo DO Radiology - ChestBy: Kassandra Fortune CNP On: 27-May-2010 Intent E Aerosol Treatment ([id number])By: Devika On: 27-May-2010 Kassandra Pabon CNP Pulse Oximetry ([id number])By: Devika LUU On: 27-May-2010 Intent Dasia Ultrasound - LiverBy: Azra JEAN-BAPTISTE, On: 07-Mar-2010 Intent Veronica Jurado DO Spirometry ([id number])By: Azra JEAN-BAPTISTE, On: 07-Mar-2010 Intent Veronica Jurado DO Comments: mild obstrucition EKG ([id number])By: Veronica Oquendo DO On: 14-Dec-2009 Intent Veronica Oquendo DO Comments: nsr poor R wave progression-- will request old ekg to compare Spirometry ([id number])By: Azra JEAN-BAPTISTE, On: 14-Dec-2009 Intent Veronica Jurado DO Comments: mild obstructive disease but some technique off Planned Medications INFUSION, NORMAL SALINE SOLUTION , 1000 CC Ordered: 14-Jul-2017 Pending Ciesa SECURITY INFRASTRUCTURE ENGINEER, Dasia INJECTION, KETOROLAC TROMETHAMINE, PER 15 MG Ordered: 12-May-2014 Pending Ciesa SECURITY INFRASTRUCTURE ENGINEER, Dasia INJECTION, KETOROLAC TROMETHAMINE, PER 15 MG Ordered: 04-Jul-2016 Pending Ciesa SECURITY INFRASTRUCTURE ENGINEER, Dasia INJECTION, METHYLPREDNISOLONE SODIUM SUCCINATE, UP TO 125 MG Ordered: 29-Jan-2011 Pending Ciesa SECURITY INFRASTRUCTURE ENGINEER, Dasia INJECTION, METHYLPREDNISOLONE SODIUM SUCCINATE, UP TO [...] TO 125 MG Ordered: 13-Aug-2016 Pending Ciesa SECURITY INFRASTRUCTURE ENGINEER, Dasia INJECTION, METHYLPREDNISOLONE SODIUM SUCCINATE, UP TO [...] TO 125 MG Ordered: 03-Jun-2013 Pending Ciesa SECURITY INFRASTRUCTURE ENGINEER, Dasia INJECTION, METHYLPREDNISOLONE SODIUM SUCCINATE, UP TO 125 MG Ordered: 01-Jan-2018 Pending Azra DO, Veronica Azra DO, Veronica INJECTION, METHYLPREDNISOLONE SODIUM SUCCINATE, UP TO 125 MG Ordered: 18-Aug-2018 Pending Ciesa SECURITY INFRASTRUCTURE ENGINEER, Dasia INJECTION, TRIAMCINOLONE ACETONIDE, NOT OTHERWISE SPECIFIED, 10 MG Ordered: 21-Jul-2013 Pending Azra DO, Vreonica Azra DO, Veronica Instructions Name Dates Details [...] foot : DISCONTINUED - RENAL FUNCTION PANEL ([id number]) Indication: Gout of right foot Gout of right foot : DISCONTINUED - URIC ACID BLOOD ([id number]) Indication: Gout of right foot Hypertension with renal disease : DISCONTINUED - MAGNESIUM ([id number]) Indication: Hypertension with renal disease Hypertension with renal disease : DISCONTINUED - POTASSIUM SERUM ([id number]) Indication: Hypertension with renal disease Diarrhea : [...] The patient does have durable power of toll line repairer and living will. The patient has noticed nothing from the geriatic depression scale. Other providers contributing to the patient's care are career technical education instructor, manager case, calibration technician and other:.Encounter Diagnosis: BMI 38.0-38.9,adult, Nonsmoker, Annual [...] The patient does have durable power of toll line repairer and livin g will. The patient has noticed lack of energy. Other providers contributing to the patient's care are gastrologist, calibration technician and other: (pain management, podiatry).Encounter Diagnosis: Body [...] patient does not have durable power of toll line repairer or living will. The patient has noticed nothing from the geriatic depression s angelica. Other providers contributing to the patient's care are calibration technician and other:.Encounter Diagnosis: Annual Medicare Phyiscal WITHOUT [...] patient does not have durable power of toll line repairer or living will. The patient has noticed [...] care from a hospital (inhaled hamburger and uzbek rice and she was in hosp from [...] providers contributing to the patient's care are manager case (margaret saravia), calibration technician (dr. hayes) and other: (dr. zincdr. leedr. [...] providers contributing to the patient's care are manager case (says has an appt with Dr Hammer this month at [facility] gastrologist (Michele), calibration technician (Dr Hayes) and urologist (Dr Mayes).Encounter Diagnosis: [...]
--- OUTSIDE RECORDS SUMMARY | 2018-12-08 05:36 | XMS RPT_ITS | Continuity of Care Document ---
:1950 Author Organization [facility] Address [address] [facility] [address] [place] [address] Phone Care Team Providers Name Role Phone [...] after 2weeksdriving to see Dr Ribeiro in [place] Status: Active CHRONIC OBSTRUCTIVE ASTHMA WITH (ACUTE) [...] DO, DO, Kathleen Start : 25-Aug-2018 Active [place] 5-325 MG Oral Tablet 1 (one) Tablet [...] DO, Kathleen Start : 25-Aug-2018 Active [place] 3/16 31G X 5 MM Miscellaneous 1 [...] Quantity: 360 {Tablet} Refills: 3 Ordered:02-Apr-2018 Kelsea Ricahrds LPN Start : 04-Jul-2016 End : 02-Apr-2018 [...] End : 10-Apr-2016 Inactive VITAMIN D (ERGOCALCIFEROL), 92560NSOM (Oral Capsule) 1 (one) Capsule daily for [...] Discontinued Comments:Dispense mini needles CALCIUM + D, [phone]-MG-IU (PO Cap) 2 qd for 0 days [...] Visit Report Result: Comments: See Note; NOTES: [facility] Medicine [address] [place] [address] OFFICE VISIT Date of Service: 05/11/18 MR#: [id number] Acct: [id number] Name: SUGEY LING Rep #: [id number] : 1950 Provider: Tia Chirinos MD Age/Sex: 67/F [place] [facility] [place] Status: Signed Intake Intake Visit Reasons: LOW [...] [History Confirmed 01/07/18] Fluticasone 0.05% [Flonase Nasal Rayle] 1 spray NASAL DAILY 06/21/17 [History Confirmed 01/07/18] Fluticasone/Salmeterol [Advair 500/50 Mcg Diskus] 1 puff INHALATION BID 06/21/17 [History Confirmed 01/08/18] Furosemide [Lasix] 40 mg PO DAILY PRN PRN 06/21/17 [History Confirmed 01/07/18] Insulin Detemir [Levemir (BKC)] 24 units SC QHS 06/21/17 [History Con firmed 01/08/18] [place]-3S/Dha/Epa/Fish Oil [Fish Oil 1,200 mg Softgel] 1 ea PO DAILY 06/21/17 [History Confirmed 01/07/18] Pantoprazole Sodium [Protonix] 40 mg PO BID 06/21/17 [History Confirmed 8] Tiotropium [place] [Spiriva Respimat] 2 puff IH DAILY 06/21/17 [History Confirmed 01/08/18] Tramadol HCl [Ultram] 50 mg PO BID 06/21/17 [History Confirmed 01/07/18] Albuterol Inhaler [Ventolin Hfa (S P)] 1 - 2 puff INHALATION Q4H PRN PRN 12/04/17 [History Confirmed 01/08/18] Sour Scott Extract [Tart Scott Extract] 1,000 mg PO DAILY 01/07/18 [History Confirmed 01/07/18] [facility] Social History Smoki ng Status: Former smoker [...] nothin g. 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 respiratory physician who would not clear her for a [...] (CAD), BILAT Result: Comments: See Note; NOTES: [facility] Imaging Services [address] [place] [address] SCREENING MAMM (CAD), BILAT MR#: [id number] Acct: [id number] Name: SUGEY LING Rep #: [id number] : 1950 F 67 From: Anam Larios MD PCP: Veronica Oquendo DO Status: REG CLI Study: SCREENING MAMM (CAD), BILAT Date of Exam: 05/20/18 Exam# [id number] Ordering Dr: Veronica Oquendo O MAMMOGRAPHY - [...] delay biopsy of a clinically suspicious abnormality. [id number] Electronically Signed: Anam Larios MD at 7:57 EDT Tel [phone], Service jolly pport , CC: Veronica Oquendo DO Cement Worker: Signed 29-Jan-2018 Modified Barium Swallow Study Result: Comments: See Note; NOTES: [facility] Speech Pathology [address] [place] [address] Modified Barium Swallow Study MR#: [id number] Acct: [id number] Name: SUGEY LING Rep #: [id number] : 1950 67 From: Eliezer Duke M.A., CFY-ROPER OPERATOR PRIMARY / SECONDARY DIAGNOSIS: dysphagia (R13.10) REFERRING [...] Patien t inhaled pieces of hamburger and Vietnamese rice. 04/26/2014 underwent bronchoscopy with bronchial lavage and foreign body removal after aspirating rice during intake of hamburger and Vietnamese rice. 2017 CT/Chest revealed old granulomatous disease; no acute pulmonary abnormality; resolution of the right lower lobe infiltrate seen on the prior CT. 12/31/2017 CXR revealed cardiomegaly; pectus excavat um deformity; no acute abnormality is seen. 01/08/2018 underwent bronchoscopy with bronchial lavage and foreign body removal after aspirating rice during intake of Dominican food with resulting pneumoniti s of both food and emesis with bronchospasm, documentation reveals history of esophageal strictures with plans for equal opportunity officer referral for possible esophageal dilatation. Patient reports [...] Thin liquids via cup (single sip): 1 [place] thickened liquids via cup (single sip) : 1 [place] thickened liquids via cup (single sip): 2 [place] thickened liquids via cup (single sip): 1 [...] l functioning, with workup currently underway via equal opportunity officer. Patient able to comprehend and express recommended [...] 1520 <Electronically signed by Eliezer Duke M.A., CFY-ROPER OPERATOR> Date Eliezer Duke M.A. CFY-ROPER OPERATOR Co-Signature Required for all Medicare patients Date/Time Co-Signature CC: 29-Jan-2018 Swallowing Function w/Video Result: Comments: See Note; NOTES: [facility] Imaging Services [address] [place] [address] Swallowing Function w/Video MR#: [id number] Acct: [id number] Name: SUGEY LING Rep #: [id number] : 1950 F 67 From: Anam Larios MD PCP: Veronica Oquendo DO Status: [facility] Study: Swallowing Function w/Video Date of Exam: 01/29/18 Exam# [id number] Ordering Dr: Isaías Stroud MD STUDY: SWALLOWING [...] Anam Larios MD at 14:25 EST Tel [phone], Service support , CC: Veronica Stroud Cement Worker: Signed 30-Dec-2017 Chest PA and Lateral Result: Comments: See Note; NOTES: [facility] Imaging Services [address] [place] [address] Chest PA and Lateral MR#: [id number] Acct: [id number] Name: SUGEY LING Rep #: [id number] : 1950 67 From: Anam Larios MD PCP: Veronica Oquendo DO Status: REG CLI Study: Chest PA and Lateral Date of Exam: 12/30/17 Exam# [id number] Ordering Dr: Octavio Delgado MD STUDY: X- [...] Anam Larios MD at 12:54 EST Tel [phone], Service support , CC: Veronica Oquendo DO; Octavio Delgado MD Cement Worker: Signed 22-Dec-2017 Chest PA and Lateral Result: Comments: See Note; NOTES: [facility] Imaging Services [address] [place] [address] Chest PA and Lateral MR#: [id number] Acct: [id number] Name: SUGEY LING Rep #: [id number] : 1950 F 67 From: Ronnie Bradford MD PCP: Veronica Oquendo DO Status: REG CLI Study: Chest PA and Lateral Date of Exam: 12/22/17 Exam# [id number] Ordering Dr: Kelsea Lund FIELD AGENTJonathan STUDY: X-RAY C HEST REASON FOR EXAM: [...] , CC: NAKIA Lund; Veronica Oquendo DO Cement Worker: Signed 04-Dec-2017 Chest without Contrast Result: Comments: See Note; NOTES: [facility] Imaging Services [address] [place] [address] Chest without Contrast MR#: [id number] Acct: [id number] Name: SUGEY LING Rep #: [id number] : 1950 F 67 From: Rogelio Alston DO PCP: Veronica Oquendo DO Status: REG CLI Study: Chest without Contrast Date of Exam: 12/04/17 Exam# [id number] Ordering Dr: Octavio Delgado MD STUDY: CT [...] Rogelio Alston DO at 13:14 EST Tel [phone], Service support , CC: Veronica Oquendo DO; Octavio Delgado MD Cement Worker: Signed 17-Nov-2017 Emergency Department Summary Result: Comments: See Note; NOTES: [facility] Medical Records Department [address] [place] [address] Emergency Department Summary 11/16/17 1811 MR#: [id number] Acct: [id number] Name: SUGEY LING Rep #: [id number] : 1950 66 From: Lobito Lee MD [...] a prednisone taper and sees a pul eligibility analyst. I believe that she should continue her [...] Aspiration event This note was generated with iLumen dictation software. It may contain incorrect words, [...] problems, contact your Primary Care Provider. Call [facility] [employer] [facility] ([phone]) or report to the closest Emergency Room. Call 911 if necessary. 11/17/17 0054 <Electronically signed by Lobito Lee MD> Date Lobito Lee MD Cosigner Signature (If Indicated): Date CC: Veronica Oquendo DO 16-Nov-2017 Chest PA and Lateral Result: Comments: See Note; NOTES: [facility] Imaging Services [address] [place] [address] Chest PA and Lateral MR#: [id number] Acct: [id number] Name: SUGEY LING Rep #: [id number] : 1950 F 66 From: Ivone Guevara MD PCP: Veronica Oquendo DO Status: REG ER Study: Chest PA and Lateral Date of Exam: 11/16/17 Exam# [id number] Ordering Dr: Lobito Lee MD STUDY: X-RAY [...] Fax CC: Veronica Oquendo DO; Lobito Lee Cement Worker: Signed 09-Oct-2017 Chest PA and Lateral Result: Comments: See Note; NOTES: [facility] Imaging Services [address] [place] [address] Chest PA and Lateral MR#: [id number] Acct: [id number] Name: SUGEY LING Rep #: [id number] : 1950 F 66 From: Anam Larios MD PCP: Veronica Oquendo DO Status: REG CLI Study: Chest PA and Lateral Date of Exam: 10/09/17 Exam# [id number] Ordering Dr: Will Oliveira MD STUDY: X-RAY [...] Anam Larios MD at 15:14 EST Tel [phone], Service support , CC: Veronica Oquendo DO; Will Oliveira MD Cement Worker: Signed 15-Jul-2017 PT D/C Summary (1) Result: Comments: See Note; NOTES: [facility] Physical Therapy [facility] [address] [place] [address] Fax REHABILITATION SERVICES [facility] SUMMARY MR#: [id number] Acct: [id number] Name: SUGEY LING Rep #: [id number] : 1950 66 From: Nghia Willis PT, Cert. MDT, OCS Referring Dr.: Chetan Medina MD Status: REG RCR Insurance: M [employer]ARE PART A B [employer] FOR [employer] HP - PT D/C Summary It has [...] therapy, please feel free to yamilka l ma at [phone]. Thank you for the referral of this patient. Sincerely, Nghia Willis, PT, <Electronically signed by Nghia Willis PT, Cert. MDT, [facility]> 07/15/17816 CC: Chetan Medina MD; Veronica Oquendo DO WENCESLAO Signed 11-Jul-2017 Emergency Department Summary Result: Comments: See Note; NOTES: [facility] Medical Records Department [address] [place] [address] Emergency Department Summary 06/21/17 0738 MR#: [id number] Acct: [id number] Name: SUGEY LING Rep #: [id number] : 1950 66 From: Rufino Vela MD [...] ED Arthritis Gout Prescriptions: Hydrocodone Bitart/Apap 5-325 [[place] 5/325] 1 - 2 tablet PO Q4H PRN PRN #7 tablet PRN Reason: Pain Referrals: Veronica Oquendo, DO [Primary Care Provider] - What to do if you have Problems For any increased pain, shortness of breath, bleeding, na usea or vomiting, chest pain, or any unexpected problems, contact your Primary Care Provider. Call [facility] ([phone]) or report to the closest Emergency Room. Call 911 if necessary. 07/11 0903 <Electronically signed by Rufino Vela MD> Date Rufino Vela MD Cosigner Signature (If Indicated): Date CC: Veronica Oquendo DO 21-Jun-2017 Discharge Instruction Result: Comments: See Note; NOTES: [facility] Medical Records Department [address] [facility] [place] [place] [address] Discharge Instruction 06/21/17 0740 MR#: [id number] Acct: [id number] Name: Sissy LING Rep #: [id number] : 1950 66 From: Rufino Vela MD PCP: Veronica Oquendo DO Status: REG ER ED Disposition - Plan for ED Patient: Chief Complaint: Lower Extremity Injury Instruction s: ED Arthritis Gout Prescriptions: Hydrocodone Bitart/Apap 5-325 [[place] 5/325] 1 - 2 tablet PO Q4H [...] PT (1) Result: Comments: See Note; NOTES: [facility] Physical Therapy [facility] [address] [place] [address] Fax REEVALUATION / MEDICARE RECERTI VEL [place] 4d PHYSICAL THERAPY MR#: [id number] Acct: [id number] Name: SUGEY LING Rep #: [id number] : 1950 66 From: Nghia Willis PT, [...] do not hesitate to contact me at [phone] by phone or if you have questions [...] Bending Views Result: Comments: See Note; NOTES: [facility] Imaging Services [address] [place] [address] [place] 4d L/S Spine Comp/w Bending Views MR#: [id number] Acct: [id number] Name: DAVE LING Rep #: [id number] : 1950 F 66 From: Ronnie Bradford MD PCP: Veronica Oquendo DO Status: REG CLI Study: L/S Spine Comp/w Bending Views Date of Exam: 06/09/17 Exam# [id number] Ordering Dr: Alicia Chirinos MD STUDY: X-RAY [...] CC: Tia Chirinos M.D.; Veronica Oquendo DO Cement Worker: Signed 26-May-2017 Re-Evaluation - PT (1) Result: Comments: See Note; NOTES: [facility] Physical Therapy [address] [place] [address] Fax REEVALUATION / MEDIC[facility]I [facility] MR#: [id number] Acct: [id number] Name: SUGEY LING Rep #: [id number] : 1950 66 From: Nghia Willis PT, [...] do not hesitate to contact me at [phone] by phone or if you have questions or concerns regardin g this new plan of care! Sincerely, Nghia Willis PT, <Electronically signed by Nghia Willis PT, Cert. T, [facility]> 05/26/17 1440 CC: Chetan Medina MD; Veronica Oquendo DO DD: WENCESLAO Signed For Medicare only, by signing this I certify the plan of care. Physicians Signature Date 12-May-2017 Dexa Bone Density Study (HP) Result: Comments: See Note; NOTES: [facility] Imaging Services [address] [place] [address] [place] 4d Dexa Bone Density Study (HP) MR#: [id number] Acct: [id number] Name: SUGEY LING Rep #: [id number] : 1950 F 66 From: Anam Larios MD PCP: Veronica Oquendo DO Status: REG CLI Study: Dexa Bone Density Study (HP) Date of Exam: 05/12/17 Exam# [id number] Ordering Dr: Veronica Bridges DO STUDY: DUAL [...] Anam Larios MD at 12:45 EDT Tel [phone], Service support , CC: Veronica Oquendo DO Cement Worker: Signed 12-May-2017 SCREENING MAMM (CAD), BILAT Result: Comments: See Note; NOTES: [facility] Imaging Services [address] [place] [address] [place] 4d SCREENING MAMM (CAD), BILAT MR#: [id number] Acct: [id number] Name: SUGEY LING Rep #: [id number] : 1950 F 66 From: Royce Phipps MD PCP: Veronica Oquendo DO Status: REG CLI Study: SCREENING MAMM (CAD), BILAT Date of Exam: 05/12/17 Exam# [id number] Ordering Dr: Bren Oquenod DO MAMMOGRAPHY - BILATERAL SCREENING REASON FOR [...] delay biopsy of a clinically suspicious abnormality. [id number] Electronically Signed: Royce Phipps MD at 13:24 EDT Tel , Service support [phone], CC: Veronica Oquendo DO Cement Worker: Signed 30-Apr-2017 Inital Evaluation (1) - PT Result: Comments: See Note; NOTES: [facility] Physical Therapy [facility] [place] [address] Fax REHABILITATION SERVICES INITIAL EVALUATION MR#: [id number] Acct: [id number] Name: SUGEY LING Rep #: [id number] [...] bowel/bladder problems. Physical therapy went well in [place], she was able to walk again. Social: [...] to be FAXED BACK to us at [phone] for Medicare purposes. Please let me know [...] Lumbar (Routine) Result: Comments: See Note; NOTES: [facility] Imaging Services [address] [place] [address] [place] 4d Spine Lumbar (Routine) MR#: [id number] Acct: [id number] Name: SUGEY LING Devin Rep #: [id number] : 1950 F 66 From: Ronnie Bradford MD PCP: Veronica Oquendo DO Status: REG CLI Study: Spine Lumbar (Routine) Date of Exam: 04/24/17 Exam# [id number] Ordering Dr: Chetan Medina MD UDY: MRI [...] CC: Chetan Medina MD; Veronica Oquendo DO Cement Worker: Signed 15-Apr-2017 Hips B/L min 2 views w/ Pelvis Result: Comments: See Note; NOTES: [facility] Imaging Services [address] [facility] [place] [place] [address] [place] 4d Hips B/L min 2 views w/ Pelvis MR#: [id number] Acct: [id number] Name: DAVE LING Rep #: [id number] : 1950 F 66 From: Jeremiah Ramos MD PCP: Veronica Oquendo DO Status: REG CLI Study: Hips B/L min 2 views w/ Pelvis Date of Exam: 04/15/17 Exam# [id number] Ordering Dr: Chetan Hubbard MD STUDY: X-RAY [...] CC: Chetan Medina MD; Veronica Oquendo DO Cement Worker: Signed 16-Jul-2016 Spirometry (50075) Result: 16-Jul-2016 ELECTROCARDIOGRAM, COMPLETE (ECG) (38718) Comments: no new chg cmpared to last ekg Result: [MEASUREMENTS ANALYSIS] Date of Test: 07/16/2016 11:05:02; Heart Rate: 69; TX Interval: 144; QRS: 104; QT Interval: 394; Corrected QT Interval (QTc): 409; P Wave [place]: 56; QRS Wave [place]: 55; T Wave [place] : 90; Blood Pressure: 122/78 [ECG DIAGNOSTIC STATEMENTS] Date of Test: 07/16/2016 11:05:02; Summary: Sinus Rhythm Low voltage in limb leads. - Negative T- waves -Possible Anterior ischemia. ABNORMAL 04-Jul-2016 Knee 4 or More Views Result: Comments: See Note; NOTES: [facility] Imaging Services [address] [place] [address] [place] 4d Knee 4 or More Views MR#: [id number] Acct: [id number] Name: SUGEY LING Rep # : [id number] : 1950 F 65 From: Ivone Guevara MD PCP: Veronica Oquendo DO Status: REG CLI Study: Knee 4 or More Views Date of Exam: 07/04/16 Exam# [id number] Ordering Dr: Kassandra Fortune STUDY: X-RAY - [...] at 16:23 EDT Tel , Service support [phone], CC: Kassandra Fortune; Veronica Oquendo DO Cement Worker: Signed 03-Jun-2016 Emergency Department Summary Result: Comments: See Note; NOTES: [facility] Medical Records Department [address] [place] [address] Emergency Department Summary MR#: [id number] Acct: [id number] Name: SUGEY LING Rep #: [id number] : 1950 65 From: Ronaldo Verduzco MD [...] pneumonia; and COPD. PRIMARY CARE PHYSICIAN: Veronica Oquenod DO ORTHOPEDIST: Will Oliveira M.D. PHYSICAL EXAM [...] C: Veronica Reeder MD T: NTS JOB: [id number] 06/03/16 1307 <Electronically signed by Ronaldo Verduzco MD> Date Ronaldo Verduzco MD Cosigner Signature (If Indicated): Date CC: Veronica Oquendo DO; Will Oliveira MD Date Dictated: 06/03/16 1232 Date Transcribed: 06/03/16 1232 Cement Worker: Signed 03-Jun-2016 Discharge Instruction Result: Comments: See Note; NOTES: [facility] Medical Records Department [address] [place] [address] Discharge Instruction 06/03/16 1230 MR#: [id number] Acct: [id number] Name: SUGEY LING Rep #: [id number] : 1950 65 From: Ronaldo Verduzco MD PCP: Veronica Oquendo DO Status: REG ER ED Disposition - Plan for ED Patient: Disposition: Home or Assisted Living C [facility] Complaint: Fall Instructions: ED Fracture, [...] any unexpected problems, contact your doctor. Call [facility] [employer] [facility] ([phone]) or report to the closest Emergency Room. Call 911 if necessary. 06/03/16 1234 <El ectronically signed by Ronaldo Verduzco MD> Date Ronaldo Verduzco MD Cosigner Signature (If Indicated): Date CC: Veronica Oquendo DO 03-Jun-2016 Shoulder min 2 Views Result: Comments: See Note; NOTES: [facility] Imaging Services [address] [place] [address] [place] 4d Shoulder min 2 Views MR#: [id number] Acct: [id number] Name: SUGEY LING Rep #: [id number] : 1950 F 65 From: Anam Larios MD PCP: Veronica Oquendo DO Status: REG ER Study: Shoulder min 2 Views Date of Exam: 06/03/16 Exam# [id number] Ordering Dr: Ronaldo Verduzco MD STUDY: X-RAY [...] Anam Larios MD at 12:42 EDT Tel [phone], Service support [phone], RAD/Shoulder min 2 Views IMPRESSION: I suspect a nondisplaced impacted fracture of the surgical neck of the humerus. Electronically Signed: Anam rinaldi MD at 12:42 EDT Tel [phone], Service support [phone], CC: Veronica Oquendo DO; Ronaldo Verduzco MD Cement Worker: Signed 13-May-2016 L/S Spine Min 4 Views Result: Comments: See Note; NOTES: [facility] Imaging Services [address] [place] [address] Ver[place] 4d L/S Spine Min 4 Views MR#: [id number] Acct: [id number] Name: SUGEY LING Rep #: [id number] : 1950 F 65 From: Anam Larios MD PCP: Veronica Oquendo DO Status: REG CLI Study: L/S Spine Min 4 Views Date of Exam: 05/13/16 Exam# [id number] Ordering Dr: Chetan Luo MD STUDY: X-RAY [...] Anam Larios MD at 8:31 EDT Tel [phone], Service support [phone], RAD/L/S Spine Min 4 Views IMPRESSION: Status post laminectomy and fusion at the L4-L5 and L5-S1 levels with prosthetic disc insertion. Grade 2 anterior listhesis of L5 on S1. Electron ically Signed: Anam Larios MD at 8:31 EDT Tel [phone], Service support [phone], CC: Chetan Medina MD; Veronica Oquendo DO Cement Worker: Signed 13-May-2016 Chest WITH Contrast Result: Comments: See Note; NOTES: [facility] Imaging Services [address] [place] [address] [place] 4d Chest WITH Contrast MR#: [id number] Acct: [id number] Name: Sissy LING [facility] A Rep #: [id number] : 1950 F 65 From: Anam Larios MD PCP: Veronica Oquendo DO Status: REG CLI Study: Chest WITH Contrast Date of Exam: 05/13/16 Exam# [id number] Ordering Dr: Veronica Oquendo DO STUDY: CT [...] Anam Larios MD at 8:42 EDT Tel [phone], Service support , CC: Veronica Oquendo DO Cement Worker: Signed 09-May-2016 Bilat Scrn Digital AND CAD Result: Comments: See Note; NOTES: [facility] Imaging Services [address] [place] [address] [place] 4d Bilat Scrn Digital AND CAD MR#: [id number] Acct: [id number] Name: SUGEY LING Rep #: [id number] : 1950 F 65 From: Anam Larios MD PCP: Veronica Oquendo DO Status: REG CLI Study: Bilat Scrn Digital AND CAD Date of Exam: 05/09/16 Exam# [id number] Order ing Dr: Veronica Oquendo DO MAMMOGRAPHY [...] delay biopsy of a clinically suspicious abnormality. [id number] Electronically Signed: Anam Larios MD at 10:46 EDT Tel [phone], Se rvice support [phone], CC: Veronica Oquendo DO Cement Worker: Signed 09-May-2016 Chest PA and Lateral Result: Comments: See Note; NOTES: [facility] Imaging Services [address] [place] [address] [place] 4d Chest PA and Lateral MR#: [id number] Acct: [id number] Name: SUGEY LING Rep #: [id number] : 1950 F 65 From: Anam Larios MD PCP: Veronica Oquendo DO Status: REG CLI Study: Chest PA and Lateral Date of Exam: 05/09/16 Exam# [id number] Ordering Dr: Veronica Davidson DO STUDY: X-RAY [...] Anam Larios MD at 9:41 EDT Tel [phone], Service support [phone], RAD/Chest PA and Lateral IMPRESSION: Focal area of increased markings in the right midlung. Followup is recommended. Electronically Signed: Anam Larios MD at 9:41 EDT Tel [phone], Service support [phone], CC: Veronica Oquendo DO Cement Worker: Signed 15-Apr-2016 Knee 4 or More Views Result: Comments: See Note; NOTES: [facility] Imaging Services [address] [place] [address] [place] 4d Knee 4 or More Views MR#: [id number] Acct: [id number] Name: SUGEY LING Rep #: [id number] : 1950 F 65 From: Royce Phipps MD PCP: Veronica Oquendo DO Status: REG CLI Study: Knee 4 or More Views Date of Exam: 04/15/16 Exam# [id number] Ordering Dr: Tad Oquendo DO STUDY: X-RAY [...] 10:30 EDT Tel , Servic e support [phone], RAD/Knee 4 or More Views IMPRESSION: Degenerative arthrosis. Electronically Signed: Royce Phipps MD at 10:30 EDT Tel , Service support [phone], CC: Veronica Oquendo DO Cement Worker: Signed 15-Apr-2016 Knee 4 or More Views Result: Comments: See Note; NOTES: [facility] Imaging Services [address] [address] [place] 4d Knee 4 or More Views MR#: [id number] Acct: [id number] Name: SUGEY LING Rep #: [id number] : 1950 F 65 From: Royce Phipps MD PCP: Veronica Oquendo DO Status: REG CLI Study: Knee 4 or More Views Date of Exam: 04/15/16 Exam# [id number] Ordering Dr: Tad Oquendo DO STUDY: X-RAY [...] 10:39 EDT Tel , Ser vice support [phone], RAD/Knee 4 or More Views IMPRESSION: Degenerative arthrosis. Electronically Signed: Royce Phipps MD at 10:39 EDT Te l , Service support [phone], CC: Veronica Oquendo DO Cement Worker: Signed 30-Jul-2015 Spirometry (18715) Result: 19-Jul-2015 Spirometry (51593) Comments: mild obstruction - asx Result: 08-May-2015 Bilat Scrn Digital AND CAD Result: Comments: See Note; NOTES: [facility] Imaging Services [address] [place] [address] Breast Imaging Report MR#: [id number] Acct: [id number] Name: SUGEY LING Rep #: [id number] : 1950 F 64 From: Anam Larios MD PCP: Veronica Oquendo DO Status: REG CLI Study: Bilat Scrn Digital AND CAD Date of Exam: 05/08/15 Exam# [id number] Ordering Dr: Pippa Oquendo DO MAMMOGRAPHY - [...] Jj Larios MD at 10:50 EDT Tel [phone], Service support [phone], CC: Veronica Oquendo DO Cement Worker: Signed 08-May-2015 Dexa Bone Density Study (HP) Result: Comments: See Note; NOTES: [facility] Imaging Services [address] [place] [address] 10438 Bone Density Report MR#: [id number] Acct: [id number] Name: SUGEY LING Rep #: [id number] : 1950 F 64 From: Anam Larios MD PCP: Veronica Oquendo DO Status: REG CLI Study: Dexa Bone Density Study (HP) Date of Exam: 05/08/15 Exam# [id number] Ordering Dr: Pippa Oquendo DO STUDY: DUAL [...] Anam Larios MD at 15:32 EDT Tel [phone], Service support [phone], CC: Veronica Oquendo DO Cement Worker: Signed 27-Apr-2015 Chest PA and Lateral Result: Comments: See Note; NOTES: [facility] Imaging Services [address] [place] [address] 59929 Radiology Report MR#: [id number] Acct: [id number] Name: SGUEY LING Rep #: [id number] : 1950 F 64 From: Lilian Dominguez MD PCP: Veronica Oquendo DO Status: REG CLI Study: Chest PA and Lateral Date of Exam: 04/27/15 Exam# [id number] Ordering Dr: Veronica Oquendo DO STUDY : [...] MD at 22:33 EDT , Service support [phone], RAD/Chest PA and Lateral IMPRESSION: No acute cardiopulmonary findings or changes. Mild hyper expansion and stable mild chronic lung changes. Stigmata of prior granulomatous disease. Atherosclerosis. Demineralized osseous structures and dextroscoliosis. Electronically Signed: Lilian Dominguez MD at 22:33 EDT , Service support [phone], CC: Veronica Oquendo DO Cement Worker: Signed 31-May-2014 Foot min 3 Views Result: Comments: See Note; NOTES: [facility] Imaging Services [address] [place] [address] 18265 Radiology Report MR#: [id number] Acct: [id number] Name: SUGEY LING Rep #: [id number] : 1950 F 63 From: Celso Guerrero DO PCP: Veronica Oquendo DO Status: REG CLI Study: Foot min 3 Views Date of Exam: 05/31/14 Exam# [id number] Ordering Dr: Jade Benson MD STUDY: X-RAY [...] at 9:32 EDT Tel , Service support [phone], CC: Veronica Oquendo DO; Jade Benson MD Cement Worker: Signed 31-May-2014 Foot min 3 Views Result: Comments: See Note; NOTES: [facility] Imaging Services [address] [place] [address] Radiology Report MR#: [id number] Acct: [id number] Name: SUGEY LING Rep #: [id number] : 1950 F 63 From: Celso Guerrero DO PCP: Veronica Oquendo DO Status: REG CLI Study: Foot min 3 Views Date of Exam: 05/31/14 Exam# [id number] Ordering Dr: Jade Benson MD STUDY: X-RAY [...] DO at 9:34 EDT , Service support [phone], CC: Veronica Oquendo DO; Jade Benson MD Cement Worker: Signed 31-May-2014 Hand Min 3 Views Result: Comments: See Note; NOTES: [facility] Imaging Services [address] [place] [address] Radiology Report MR#: [id number] Acct: [id number] Name: SUGEY LING Rep #: [id number] : 1950 F 63 From: Celso Guerrero DO PCP: Veronica Oquendo DO Status: REG CLI Study: Hand Min 3 Views Date of Exam: 05/31/14 Exam# [id number] Ordering Dr: Jade Benson MD STUDY: X-RAY [...] DO at 9:42 EDT , Service support [phone], CC: Veronica Oquendo DO; Jade Benson MD Cement Worker: Signed 31-May-2014 Hand Min 3 Views Result: Comments: See Note; NOTES: [facility] Imaging Services [address] [place] [address] 70747 Radiology Report MR#: [id number] Acct: [id number] Name: SUGEY LING Rep #: [id number] : 1950 F 63 From: Celso Guerrero DO PCP: Veronica Oquendo DO Status: REG CLI Study: Hand Min 3 Views Date of Exam: 05/31/14 Exam# [id number] Ordering Dr: Jade Benson MD STUDY: X-RAY [...] at 9:43 EDT , Servic e support [phone], RAD/Hand Min 3 Views IMPRESSION: Osteopenia with degenerative changes. No acute fracture demonstrated. Electronically Signed: Ashok keith DO at 9:43 EDT , Service support [phone], CC: Veronica Oquendo DO; Jade Benson MD Cement Worker: Signed 19-May-2014 Chest PA and Lateral Result: Comments: See Note; NOTES: [facility] Imaging Services [facility] [place] [address] Radiology Report MR#: [id number] Acct: [id number] Name: SUGEY LING Rep #: [id number] : 1950 F 63 From: Marciano Fountain MD PCP: Status: REG CLI Study: Chest PA and Lateral Date of Exam: 05/19/14 Exam# [id number] Ordering Dr: Veronica Oquendo DO STUDY: X-RAY [...] MD at 5:44 EDT , Service support [phone], CC: Veronica Oquendo DO Cement Worker: Signed 18-Apr-2014 EKG (52495) Comments: nsr no acute chg Result: [MEASUREMENTS ANALYSIS] Date of Test: 04/18/2014 09:33:28; Heart Rate: 72; TX Interval: 148; QRS: 108; QT Interval: 392; Corrected QT Interval (QTc): 413; P Wave [place]: 63; QRS Wave [place]: 59; T Wave [place] : 66; Blood Pressure: 138/62 [ECG DIAGNOSTIC STATEMENTS] Date of Test: 04/18/2014 09:33:28; Summary: Sinus Rhythm Low voltage in limb leads. - Negative precordial T-waves. ABNORMAL 16-Sep-2013 Bilat Scrn Digital & CAD Result: Comments: See Note; NOTES: [facility] Imaging Services [address] [place] [address] Breast Imaging Report MR#: [id number] Acct: [id number] Name: SUGEY LING Rep #: [id number] : 1950 F 62 From: Anam Larios MD PCP: Veronica Oquendo DO Status: REG CLI Exam# [id number] Ordering Dr: Azra, Veronica DO MAMMOGRAPHY - [...] September 16, 2013 at 9:43:10 AM EDT [phone] Electronically Signed GP/GP If you are the referring physician and would like to consult with the radiologist who provided this interpretation, please contact Anam Webb i, M.D. at [phone]. If this radiologist is unavailable, you will be directed to another radiologist to assist. If you are a patient with a question regarding this report, please contact your re ferring physician directly. Professional Interpretation Provided By: PPTV, Phone , These documents contain legally protected [...] of these documents. CC: Veronica Oquendo DO Cement Worker: Signed Family History Unknown Family Member Name [...] kg/m2 Body Surface Area Calculated 1.85 m2 10-Zhf-293583:51 Temperature 98.4 f Comments: Method: Tympanic Respiration [...] Surface Area Calculated 1.86 m2 :39 Comments: [facility] and had a glaucoma test [...] kg/m2 Body Surface Area Calculated 1.9 m2 43-Yhk-321783:16 Pulse 84 /min Comments: Pattern: Regular Respiration [...] kg/m2 Body Surface Area Calculated 1.89 m2 23-Aav-834226:17 Comments: [facility] and had a glaucoma test [...] kg/m2 Body Surface Area Calculated 1.9 m2 56-Kmv-347069:22 Pulse 79 /min Comments: Pattern: Regular Respiration [...] kg/m2 Body Surface Area Calculated 1.84 m2 41-Yvd-586880:06 Pulse 64 /min Comments: Pattern: Regular Respiration [...] Description Value Details :59 URIC ACID BLOOD (62616) Comments: PATIENT NOT FASTINGPERFORMED BY: [facility] Rfzvjn8916 [facility] [id number] Uric Acid 8.7 mg/dL (Abnormal) Range: 2.5-7.1 Comments: Therapeutic target for gout patients: <6.0 :34 HgA1C , Office (66279) HgA1C , Office 6.5 % (Normal) Range: 4.6 - 7.1 :33 Blood Glucose , Office (61517) Blood Glucose , Office 103 (Normal) 07-Uqa-212250:32 Basic Metabolic Profile (BMP) Comments: [facility] [address] [place], [address] GAP 3 (Abnormal) Range: 5-15 CO2 31.0 [...] A.D.A. criteria.Please note revised GLUCOSE reference range vsxnoeyly51/02/2018. :36 HgA1C , Office (19163) HgA1C , Office 6.6 % (Normal) Range: 4.6 - 7.1 :36 Blood Glucose , Office (42095) Blood Glucose , Office 186 (Normal) Comments: not fasting 2-Gvz-962100:28 Miscellaneous Lab Procedure Comments: Comments: TRAMADOL URINE [id number](s) Ordered: URINE TOXICOLOGY [id number] RUN [facility] Crrbpkpmue4041 [facility] [place], [address] [facility] Comments: [id number] 6+OXYCODONE-BUND (ng/mL)DRUG RESULT SCREEN CUTOFF____ Amphetamines,Urine Negat LAB (Normal) emy ng/mL 1000Amphetamine test includes Amphetamine and Methamphetamine.Barbiturates Negative ng/mL 200Benzodiazepines Negative ng/mL 200Cannabinoid TEST Negative ng/mL 20Cocaine (Metab) Negative ng/mL 300Opiates Negative ng/mL 300 Opiates test includes Codeine, Morphine, Hydromorphone, [place] codone.Oxycodone/Oxymorphone,Urine Negative ng/mL 300 Test includes Oxydodone and Oxymorphone. TESTING PERFORMED AT [facility]. ORIGINAL REPORT ON FILE IN LAB CONTAINS ADDITIONAL TEST SITE INFORMATION. 9-Omy-453993:28 Miscellaneous Lab Procedure 2 Comments: Comments: TRAMADOL URINE [id number] Test(s) Ordered by Physician: URINE TOXICOLOGY [id number] RUN [facility] [address] [place] [place], [id number] [facility] Comments: TEST RESULT LIMITSTramadol Positive Cutoff = 200 Tramadol GC/MS COnf 6050 ng/mL Cutoff = 100 LAB (Normal) TESTING PERFORMED AT [facility]. ORIGINAL REPORT ON FILE IN LAB CONTAINS ADDITIONAL TEST SITE INFORMATION. TEST 2 6-Tnk-929694:28 Urine Drug Screen (VISTA) Comments: Comments: TRAMADOL URINE [id number] of Drugs Taken or Suspected? [facility] [address] [place], [id number] THC NEGATIVE (Normal) PCP NEGATIVE (Normal) OPIATES [...] TESTING MUST BE ORDERED SEPARATELY. USE TESTMNEMONIC: [facility] 44-Qfx-956015:14 CBC-Complete Blood Cnt No Diff Comments: [facility] [address] [place], [phone]([phone] MPV 9.5 fL (Normal) Range: 6.2-12.0 PLT [...] 4.2-5.4 WBC 9.7 K/mm3 (Normal) Range: 4.4-11.0 91-Uxh-874819:14 Magnesium Comments: [facility] [address] [place], [phone](256) MG 1.7 mg/dL (Normal) Range: 1.6-2.6 68-Gsy-483178:14 Microalb:Creat Ratio,Random UR Comments: [facility] [address] [place], [address] MALB:CREAT 5.5 {mg/g_CRE} (Normal) MICROALBUMIN,UR 6.1 mg/L (Normal) UR CREAT 111.00 mg/dL (Normal) 87-Shh-233294:1 PTHIN 25.7 pg/mL (Normal) Comments: [address] [place], [id number] 4 Range: 18.4-80.1 Comments: Please Note: PTH INTACT METHOD AND REFERENCE RANGE CHANGEEffective 11/18/2017. 37-Xrf-087724:14 Renal Profile Comments: [facility] [address] [place], [id number] CO2 27.0 mmol/L (Normal) Range: 21.0-32.0 CL [...] A.D.A. criteria.Please note revised GLUCOSE reference range ebqaigyui80/02/2018. 58-Roa-710822:14 Uric Acid Comments: [facility] [address] [place], [phone] URIC 8.4 mg/dL (Abnormal) Range: 2.6-6.0 Comments: The drugs N-Acetylcysteine and Metamizole may falselydepress this assay. 49-Mfc-074814:14 Vitamin D,25 Hydroxy Comments: [facility] [address] [place], [id number] Vitamin D 25-OH 36.6 ng/mL (Normal) Range: 29.95-100.01 Comments: Vitamin D 25(OH) Status Range Deficiency <20 ng/mL (50nmol/L) Insuffciency 20 - 30 ng/mL (50 - 75 nmol/L) Sufficiency 30 - 100 ng/mL (75 - 250 nmol/L) Toxicity >100 ng/mL (>250 nmol/L) 81-Mif-55691:27 HgA1C , Office (86128) HgA1C , Office 6.7 % (Normal) Range: 4.6 - 7.1 6-Nhh-415734:13 Bedside Glucose Comments: [facility] LaboratoryPoint [facility] [address] [place] [address] BEDSIDE GLU 132 mg/dL (Abnormal) Range: 70-110 Comments: MANAGEMENT OF PATIENT CARE PER NURSING PROTOCOL 08-Jan-20180:00 Culture, Bronch Aveolar Lavage Comments: [facility] [address] [place], [address] CUBRL See Note (Normal) Comments: List Antibiotics Last 48 Hours? .List Antibiotics to be Started? .Gram StainGram Stain No White Blood Cells No organisms seen Resp. CultureMixed normal respiratory hermelindo. No Haemophilus, Streptoc occus pneumoniae, beta-hemolytic Streptococcus or Staphylococcus aureus isolated. 71-Hqs-708517:06 HgA1C , Office (93493) HgA1C , Office 8.2 % (Abnormal) Range: 4.6 - 7.1 39-Qlm-561754:06 Blood Glucose , Office (99469) Blood Glucose , Office 168 (Normal) 46-Enm-626242:00 Culture, Fungus 8482 Comments: [place] [address] [place], [address] CUF See Note Comments: PER ORDER, SPUTUM SMEAR/CULTURE FUNGAS Cu,Eovysd9792 TESTING PERFORMED AT [facility]. ORIGINAL REPORT ON FILE IN LAB CONTAINS NEO TIONAL TEST (Normal) SITE INFORMATION. CUF Positive Fungus Culture ORGANISM 1: Yana albicansAmount Growth Growth 65-Lfj-084096:00 Culture, Sputum Comments: [facility] [address] [place], [place], [id number] CUSP See Note (Normal) Comments: PER ORDER, SPUTUM SMEAR/CULTURE FUNGAS Gram StainAcceptable Specimen? Yes (<25 Epithelial cells per/lpf) Gram Stain 1+ White Blood Cells 1+ Epithelial cells 1+ Gram positive cocci Resp. CultureMixed normal respiratory hermelindo. No Haemophilus, Streptococcus pneumoniae, beta-hemolytic Streptococcus or Staphylococcus aureus isolated. 46-Hgz-021748:49 BNP,B-Type NATRIURETIC PEPTIDE Comments: [facility] [address] [place], [address] B-TYPE EB PEP 41.7 pg/mL (Normal) Range: 0-100 93-Kqg-129670:30 Rapid Flu (10941 x 2) Influenza A Ag neg (Normal) 9-Wus-134483:14 Bedside Glucose Comments: [facility] LaboratoryPoint of Hcyl[address] [place] [address] BEDSIDE GLU 151 mg/dL (Abnormal) Range: 70-110 Comments: MANAGEMENT OF PATIENT CARE PER NURSING PROTOCOL 07-Dec-20170:00 Culture, Bronch Aveolar Lavage Comments: [facility] [address] [place], [address] CUBRL See Note (Normal) Comments: [...] $ <=20 S(NF) indicates non-formulary drug at [facility]. Approval by Infectious Disease Specialist required before non-formulary drugs may be ordered and/or dispensed. 0-Kvk-921965:27 CBC-Complete Blood Cnt No Diff Comments: [facility] [address] [place], [place], [phone] MPV 10.0 fL (Normal) Range: 6.2-12.0 PLT [...] 4.2-5.4 WBC 14.0 K/mm3 (Abnormal) Range: 4.4-11.0 4-Eyn-920611:27 Hemoglobin A1c Comments: [facility] [address] [place], [place], [id number] HGB A1C 7.9 % (Abnormal) Range: 4.2-6.3 5-Pwr-916288:27 Magnesium Comments: [facility] [address] [place], [place], [phone] MG 1.9 mg/dL (Normal) Range: 1.8-2.4 3-Quw-704104:27 Microalb:Creat Ratio,Random UR Comments: [facility] [address] [place], [place], [address] MALB:CREAT 12.0 {mg/g_CRE} (Normal) MICROALBUMIN,UR 11.1 mg/L (Normal) UR CREAT 92.40 mg/dL (Normal) 4-Qgf-080593:27 PTHIN 83.3 pg/mL (Abnormal) Comments: [facility] [address] [place], [id number] Range: 18.4-80.1 Comments: Please Note: PTH INTACT METHOD AND REFERENCE RANGE CHANGEEffective 11/18/2017. 1-Xpl-099109:27 Renal Profile Comments: [facility] [address] [place], [phone] CO2 24.0 mmol/L (Normal) Range: 21.0-32.0 CL [...] 200 mg/dLsuggests DIABETES MELLITUS per A.D.A. criteria. 4-Smf-287492:27 Uric Acid Comments: [facility] [address] [place], [address] URIC 9.0 mg/dL (Abnormal) Range: 2.6-6.0 Comments: The drugs N-Acetylcysteine and Metamizole may falselydepress this assay. 4-Sgn-207565:27 Vitamin D,25 Hydroxy Comments: [facility] [address] [place], [address] Vitamin D 25-OH 34.1 ng/mL (Normal) Comments: Vitamin D 25(OH) Status Range Deficiency <20 ng/mL (50nmol/L) Insuffciency 20 - 30 ng/mL (50 - 75 nmol/L) Sufficiency 30 - 100 ng/mL (75 - 250 nmol/L) Toxicity >100 ng/mL (>250 nmol/L) 99-Auw-25825:22 THROAT CULTURE (01550) Comments: PATIENT NOT FASTINGPERFORMED BY: [employer] [facility]Xhlojv0068 [facility] [id number] Information: SRC:TH Result 1 RRF (Normal) Comments: Routine respiratory hermelindo Upper Respiratory Culture Final report (Normal) 53-Rmi-001786:09 Rapid Flu (32798 x 2) Comments: Negative Influenza A Ag negative (Normal) 85-Bkt-545463:09 Rapid Strep Test, Office (48546) Comments: Negative Rapid Strep Test, Office Negative (Normal) 65-Twa-568558:52 Microscopic Examination Comments: PATIENT WAS FASTINGPERFORMED BY: [facility] Xqzgeb5452 [facility] [id number] Bacteria None seen (Normal) Mucus Threads Present (Normal) Epithelial Cells (non renal) 0-10 {/hpf} (Normal) Range: 0 - 10 RBC 0-2 {/hpf} (Normal) Range: 0 - 2 WBC 0-5 {/hpf} (Normal) Range: 0 - 5 98-Clh-061559:08 Magnesium Comments: [facility] [address] [place], [phone] MG 1.9 mg/dL (Normal) Range: 1.8-2.4 75-Bqp-757951:08 Microalb:Creat Ratio,Random UR Comments: [facility] [address] [place], [address] MALB:CREAT 8.5 {mg/g_CRE} (Normal) MICROALBUMIN,UR 5.2 mg/L (Normal) UR CREAT 61.10 mg/dL (Normal) :08 PTH,INTACT Comments: [facility] [address] [place], [address] PTH,Intact 40 pg/mL (Normal) Range: 14-72 :08 Renal Profile Comments: [facility] [address] [place], [address] CO2 23.0 mmol/L (Normal) Range: 21.0-32.0 CL [...] per A.D.A. criteria. :08 Uric Acid Comments: [facility] [address] [place], [address] URIC 8.0 mg/dL (Abnormal) Range: 2.6-6.0 Comments: The drugs N-Acetylcysteine and Metamizole may falselydepress this assay. :08 Vitamin D,25 Hydroxy Comments: [facility] [address] [place], [address] Vitamin D 25-OH 27.6 ng/mL (Normal) Comments: Vitamin D 25(OH) Status Range Deficiency <20 ng/mL (50nmol/L) Insuffciency 20 - 30 ng/mL (50 - 75 nmol/L) Sufficiency 30 - 100 ng/mL (75 - 250 nmol/L) Toxicity >100 ng/mL (>250 nmol/L) :52 URINALYSIS, W/ MICRO (94084) Comments: PATIENT WAS FASTINGPERFORMED BY: [employer] [id number] Microscopic Examination See below: (Normal) Comments: Microscopic was indicated and was performed. Nitrite, Urine Negative (Normal) Urobilinogen,Semi-Qn 0.2 mg/dL (Normal) Range: 0.2-1.0 Bilirubin Negative (Normal) Occult Blood Negative (Normal) Ketones Negative (Normal) Glucose 1+ (Abnormal) Protein Negative (Normal) WBC Esterase 1+ (Abnormal) Appearance Clear (Normal) Urine-Color Yellow (Normal) pH 6.5 (Normal) Range: 5.0-7.5 Specific [place] 1.023 (Normal) Range: 1.005-1.030 57-Qmr-652242:52 MICROALBUMIN: CREATININE RATIO Comments: PATIENT WAS FASTINGPERFORMED BY: [employer] [facility] [id number] (92750) AND (61027) Microalb/Creat Ratio 7.6 {mg/g_creat} (Normal) Range: 0.0-30.0 Microalbumin, Urine 6.8 ug/mL (Normal) Creatinine, Urine 89.4 mg/dL (Normal) 95-Aak-612361:52 METABOLIC PANEL, COMPREHENSIVE Comments: PATIENT WAS FASTINGPERFORMED BY: Recorded Future70 [facility] [id number] (51400) ALT (SGPT) 22 [iU]/L (Normal) Range: 0-32 [...] Glucose, Serum 99 mg/dL (Normal) Range: 65-99 13-Tmh-162916:52 CBC W/AUTO DIFF WBC (74081) Comments: PATIENT WAS FASTINGPERFORMED BY: [facility]Skshyj9313 [facility] [id number] Immature Grans (Abs) 0.0 {x10E3/uL} (Normal) Range: [...] 3.77-5.28 WBC 13.0 {x10E3/uL} (Abnormal) Range: 3.4-10.8 12-Tgc-006584:52 LIPID PANEL (21774) Comments: PATIENT WAS FASTINGPERFORMED BY: [facility] Gmvggl7486 [facility] [id number] LDL/HDL Ratio 1.8 {ratio_units} (Normal) Range: 0.0-3.2 Comments: LDL/HDL Ratio Men Women 1/2 Avg.Risk 1.0 1.5 Av g.Risk 3.6 3.2 2X Avg.Risk 6.2 5.0 3X Avg.Risk 8.0 6.1 LDL Cholesterol Calc 75 mg/dL (Normal) Range: 0-99 VLDL Cholesterol Yamilka 42 mg/dL (Abnormal) Range: 5-40 HDL Cholesterol 41 mg/dL (Normal) Triglycerides 211 mg/dL (Abnormal) Range: 0-149 Cholesterol, Total 158 mg/dL (Normal) Range: 100-199 53-Zew-008843:52 TSH (49926) Comments: PATIENT WAS FASTINGPERFORMED BY: [facility] Utxgpf8518 [facility] [id number] TSH 1.390 {uIU/mL} (Normal) Range: 0.450-4.500 12-Hjv-194750:52 CALCIFEDIOL (49299) Comments: PATIENT WAS FASTINGPERFORMED BY: [facility] Kcglrz5923 [facility] [id number] Vitamin D, 25-Hydroxy 38.5 ng/mL (Normal) Range: 30.0-100.0 Comments: Vitamin D deficiency has been defined by the [place] of[place] and an Endocrine Society practice guideline as alevel of serum 25-OH vitamin D less than 20 ng/mL (1,2).The Endocrine Society went on to further define vitamin Dinsufficiency as a level between 21 and 29 ng/mL (2).1. IOM ([place] of Medicine). 2010. Dietary reference intakes for calcium and D. [place]: The National Academies Press.2. Stephon MF, Ana ROY, Alka ROMERO, et al. Evaluation, treatment, and prevention of vitamin D deficiency: an Endocrine Society clinical practice guideline. JCEM. 2010; 96(7):1911-30. :32 HgA1C , Office (32231) HgA1C , Office 8.1 % (Abnormal) Range: 4.6 - 7.1 :32 Blood Glucose , Office (41776) Blood Glucose , Office 122 (Normal) :37 Immature Cells Comments: PATIENT WAS FASTINGPERFORMED BY: [facility] Jpigtf0208 [place] [id number] Myelocytes 1 % (Abnormal) Range: 0 - 0 Metamyelocytes 3 % (Abnormal) Range: 0 - 0 :16 PHOSPHORUS (40891) Comments: PATIENT WAS FASTINGPERFORMED BY: [facility] F[address] RoadDublin [place] [id number] Phosphorus, Serum 2.8 mg/dL (Normal) Range: 2.5-4.5 :16 MAGNESIUM (98366) Comments: PATIENT WAS FASTINGPERFORMED BY: [facility] Sfyemv4269 [address] WatertronixDublin [place] [id number] Magnesium, Serum 1.8 mg/dL (Normal) Range: 1.6-2.3 :16 METABOLIC PANEL, COMPREHENSIVE Comments: PATIENT WAS FASTINGPERFORMED BY: Recorded [employer]70 [facility] [id number] (58291) ALT (SGPT) 29 [iU]/L (Normal) Range: 0-32 [...] DIR SMEAR Comments: PATIENT NOT FASTINGPERFORMED BY: [facility] [id number] (93876) Result 1 NOCP (Normal) Comments: No ova, cysts, or parasites seen. Ova + Parasite Exam Final report (Normal) Comments: These results were obtained using wet preparation(s) and trichromestained smear. This test does not include testing for Cryptosporidiumparvum, Cyclospora, or Microsporidia. :34 OCCULT BLOOD FECES SCREEN Comments: PATIENT NOT FASTINGPERFORMED BY: [facility] Doxiic3320 [facility] [id number] (55805) Occult Blood, Fecal, IA Negative (Normal) :34 LEUKOCYTE COUNT, FECAL (01795) Comments: PATIENT NOT FASTINGPERFORMED BY: [employer] [facility] Qvwqww9369 [facility] [place] [id number] Result 1 NWBC (Normal) Comments: No white blood cells seen. White Blood Cells (WBC), Final report (Normal) Stool :34 C-DIFFICILE, STOOL (30013) Comments: PATIENT NOT FASTINGPERFORMED BY: CB [facility] Qxhciu0145 [facility] [place] [id number] C difficile Toxins A+B, EIA Negative (Normal) :34 ALFONZO CULTURE-STOOL (04926) Comments: PATIENT NOT FASTINGPERFORMED BY: [employer] [facility] Uifkdm8358 [facility] [id number] Information: SRC:ST SRC:ST E coli Shiga Toxin EIA Negative (Normal) Result 1 NCI (Normal) Comments: No Campylobacter species isolated. Campylobacter Culture Final report (Normal) Result 1 NSS (Normal) Comments: No Salmonella or Shigella recovered. Salmonella/Shigella Screen Final report (Normal) 36-Ryf-719983:56 Metabolic Panel, Comprehensive Comments: PATIENT NOT FASTINGPERFORMED BY: LocBox Labsrp Mpnszp1252 [facility] [id number] (34693) ALT (SGPT) 26 [iU]/L (Normal) Range: 0-32 [...] Glucose, Serum 147 mg/dL (Abnormal) Range: 65-99 57-Exo-208532:56 CBC, Platelets & Auto Diff Comments: PATIENT NOT FASTINGPERFORMED BY: [facility]Dwslpk2294 [facility] [id number] (18708) Immature Grans (Abs) 0.1 {x10E3/uL} (Normal) Range: [...] (Normal) Range: 3.4-10.8 :37 URIC ACID BLOOD (37783) Comments: PATIENT WAS FASTINGPERFORMED BY: [facility]6370 [facility] [id number] Uric Acid, Serum 9.1 mg/dL (Abnormal) Range: 2.5-7.1 Comments: Therapeutic target for gout patients: <6.0 :10 METABOLIC PANEL, COMPREHENSIVE (05483) :37 CBC W/AUTO DIFF WBC (21475) Comments: PATIENT WAS FASTINGPERFORMED BY: [facility]6370 [facility] [id number] Hematology Comments: Note: (Normal) Comments: Manual differential [...] 3.77-5.28 WBC 9.4 {x10E3/uL} (Normal) Range: 3.4-10.8 46-Ysm-517708:58 Magnesium Comments: [facility] [address] [place], [address] MG 2.0 mg/dL (Normal) Range: 1.8-2.4 Comments: Slight Hemolysis, Result may be falsely increased. 93-Fqb-262796:58 Renal Profile Comments: [facility] [address] [place], [address] CO2 27.0 mmol/L (Normal) Range: 21.0-32.0 CL [...] per A.D.A. criteria. :45 URIC ACID BLOOD (96521) Comments: PATIENT NOT FASTINGPERFORMED BY: [facility]Xvcdcf3917 [facility] [id number] Uric Acid, Serum 9.6 mg/dL (Abnormal) Range: 2.5-7.1 Comments: Therapeutic target for gout patients: <6.0 :45 RENAL FUNCTION PANEL (35628) Comments: PATIENT NOT FASTINGPERFORMED BY: [facility]Jguzsu6774 [facility] [id number] Albumin, Serum 4.5 g/dL (Normal) Range: 3.6-4.8 [...] 214 mg/dL (Abnormal) Range: 65-99 :24 CALCIFIDIOL (30596) VIT D 25 Comments: PATIENT WAS FASTINGPERFORMED BY: [facility]Cmrjop1615 [facility] [id number] Vitamin D, 25-Hydroxy 44.9 ng/mL (Normal) Range: 30.0-100.0 Comments: Vitamin D deficiency has been defined by the [place] ofMedicine and an Endocrine Society practice guideline as alevel of serum 25-OH vitamin D less than 20 ng/mL (1,2).The Endocrine Society went on to further define vitamin Dinsufficiency as a level between 21 and 29 ng/mL (2).1. IOM ([place] of Medicine). 2010. Dietary reference intakes for calcium and D. [place]: The National Academies Press.2. Stephon MF, Ana [place], Alka ROMERO, et al. Evaluation, treatment, and prevention of vitamin D deficiency: an Endocrine Society clinical practice guideline. JCEM. 2010; 96(7):1911-30. :39 HgA1C , Office (26349) HgA1C , Office 7.6 % (Abnormal) Range: 4.6 - 7.1 :39 Blood Glucose , Office (72624) Blood Glucose , Office 174 (Normal) :56 TSH (38376) Comments: PATIENT WAS FASTINGPERFORMED BY: [facility]6370 [facility] [id number] TSH 2.180 {uIU/mL} (Normal) Range: 0.450-4.500 :56 LIPID PANEL (22876) Comments: PATIENT WAS FASTINGPERFORMED BY: [facility]6370 [facility] [id number] LDL/HDL Ratio 1.8 {ratio_units} (Normal) Range: 0.0-3.2 [...] Range: 100-199 :36 CBC W/Diff, Automated Comments: [facility] [address] [place], [place], [phone] Absolute Lymph 1.31 {X10_3/ul} (Normal) Range: 0.83-4.51 [...] 4.2-5.4 WBC 10.5 K/mm3 (Normal) Range: 4.4-11.0 8-Nxd-913682:36 Magnesium Comments: [facility] [address] [place], [phone] MG 1.9 mg/dL (Normal) Range: 1.8-2.4 7-Rep-843490:36 Protein+Creatinine Ratio,Urine Comments: [facility] Q[address]ts[address] [place], [address] PROT:CRE RATIO 120 {mg/g_CRE} (Normal) Range: 0-200 PROTEIN,UR.RAN. 13.6 mg/dL (Abnormal) UR CREAT 113.00 mg/dL (Normal) 0-Wqh-809921:36 PTH,INTACT Comments: [facility] M[address] [place], [phone] PTH,Intact 27 pg/mL (Normal) Range: 14-72 1-Xpp-123224:36 Renal Profile Comments: [facility] [address] [place], [phone] CO2 27.0 mmol/L (Normal) Range: 21.0-32.0 CL [...] per A.D.A. criteria. :36 Uric Acid Comments: [facility] [address] [place], [place], [phone] URIC 7.5 mg/dL (Abnormal) Range: 2.6-6.0 Comments: The drugs N-Acetylcysteine and Metamizole may falsely deressthis assay. 3-Dew-852171:36 Vitamin D,25 Hydroxy Comments: [facility] [address] [place], [place], [phone] Vitamin D 25-OH 33.9 ng/mL (Normal) Comments: Vitamin D 25(OH) Status Range Deficiency <20 ng/mL (50nmol/L) Insuffciency 20 - 30 ng/mL (50 - 75 nmol/L) Sufficiency 30 - 100 ng/mL (75 - 250 nmol/L) Toxicity >100 ng/mL (>250 nmol/L) :24 Renal Profile Comments: [facility] Tjctplkkab[address] [facility] [place], [address] CO2 24.0 mmol/L (Normal) Range: 21.0-32.0 CL [...] Immature Cells Comments: PATIENT WAS FASTINGPERFORMED BY: [employer]6370 [employer] [facility] [id number] Myelocytes 4 % (Abnormal) Range: 0 - 0 :46 Microscopic Examination Comments: PATIENT WAS FASTINGPERFORMED BY: [employer]6370 [facility] [id number] Bacteria Few (Normal) Mucus Threads Present (Normal) Crystal Type Calcium Oxalate (Normal) Crystals Present (Abnormal) Epithelial Cells (non renal) 0-10 {/hpf} (Normal) Range: 0 - 10 RBC 3-10 {/hpf} (Abnormal) Range: 0 - 2 WBC 11-30 {/hpf} (Abnormal) Range: 0 - 5 :47 Sputum Culture (12634) Comments: PATIENT NOT FASTINGPERFORMED BY: [employer] [facility] [id number] Information: SRC:SP Result 1 RRF (Normal) Comments: Routine respiratory hermelindo Lower Respiratory Culture Final report (Normal) :46 CALCIFEDIOL (87360) Comments: PATIENT WAS FASTINGPERFORMED BY: [facility]Wfubuk0345 [facility] [id number] Vitamin D, 25-Hydroxy 32.4 ng/mL (Normal) Range: 30.0-100.0 Comments: Vitamin D deficiency has been defined by the [place] ofMedicine and an Endocrine Society practice guideline as alevel of serum 25-OH vitamin D less than 20 ng/mL (1,2).The Endocrine Society went on to further define vitamin Dinsufficiency as a level between 21 and 29 ng/mL (2).1. IOM ([place] of Medicine). 2010. Dietary reference intakes for calcium and D. [place]: The National Academies Press.2. Stephon MF, Ana NC, Alka ROMERO, et al. Evaluation, treatment, and prevention of vitamin D deficiency: an Endocrine Society clinical practice guideline. JCEM. 2010; 96(7):1911-30. :46 Metabolic Panel, Comprehensive Comments: PATIENT WAS FASTINGPERFORMED BY: [employer]6370 [facility] [id number] (71443) ALT (SGPT) 19 [iU]/L (Normal) Range: 0-32 [...] Glucose, Serum 126 mg/dL (Abnormal) Range: 65-99 22-Oho-05539:46 CBC WITH MANUAL DIFF Comments: PATIENT WAS FASTINGPERFORMED BY: [facility]6370 [facility] [id number] Information: [id number] (22158) Hematology Comments: Note: (Normal) Comments: Manual differential [...] 14.0 {x10E3/uL} (Abnormal) Range: 3.4-10.8 :46 URINALYSIS (89901) Comments: PATIENT WAS FASTINGPERFORMED BY: [employer] [facility] [id number] Microscopic Examination See below: (Normal) Comments: Microscopic was indicated and was performed. Nitrite, Urine Negative (Normal) Urobilinogen,Semi-Qn 0.2 mg/dL (Normal) Range: 0.2-1.0 Bilirubin Negative (Normal) Occult Blood Negative (Normal) Ketones Negative (Normal) Glucose 2+ (Abnormal) Protein Negative (Normal) WBC Esterase 3+ (Abnormal) Appearance Clear (Normal) Urine-Color Yellow (Normal) pH 6.5 (Normal) Range: 5.0-7.5 Specific [place] 1.022 (Normal) Range: 1.005-1.030 :46 MICROALBUMIN: CREATININE RATIO Comments: PATIENT WAS FASTINGPERFORMED BY: [employer] [facility] [id number] (10231) AND (95289) Microalb/Creat Ratio 10.1 {mg/g_creat} (Normal) Range: 0.0-30.0 Microalbumin, Urine 7.3 ug/mL (Normal) Creatinine, Urine 72.6 mg/dL (Normal) :46 TSH (79456) Comments: PATIENT WAS FASTINGPERFORMED BY: [employer] Wuuvne7229 [facility] [id number] TSH 2.600 {uIU/mL} (Normal) Range: 0.450-4.500 :46 Lipid Panel (45150) Comments: PATIENT WAS FASTINGPERFORMED BY: [employer] [facility] [id number]; has appt 08/20, will review at that [...] (Normal) Range: 100-199 :49 HgA1C , Office (56181) HgA1C , Office 6.6 % (Normal) Range: 4.6 - 7.1 :49 Blood Glucose , Office (08634) Blood Glucose , Office 113 (Normal) :10 CBC W/Diff, Automated Comments: [facility] [address] [place], [address] Absolute Lymph 1.40 {X10_3/ul} (Normal) Range: 0.83-4.51 [...] Comments: [facility] [address] [place], [phone] MG 1.9 mg/dL (Normal) Range: 1.8-2.4 :10 Protein+Creatinine Ratio,Urine Comments: [facility] [address] [place], [address] PROT:CRE RATIO 112 {mg/g_CRE} (Normal) Range: 0-200 PROTEIN,UR.RAN. 8.1 mg/dL (Normal) UR CREAT 72.10 mg/dL (Normal) :10 PTH,INTACT Comments: [facility] [address] [place], [phone] PTH,Intact 29 pg/mL (Normal) Range: 14-72 :10 Renal Profile Comments: Comments: [facility] C[address]wevi[address] [place], [id number] CO2 25.0 mmol/L (Normal) Range: 21.0-32.0 CL [...] 126 mg/dLsuggests DIABETES MELLITUS per A.D.A. criteria. 65-Ers-156059:10 Uric Acid Comments: Comments: [facility] [address] [place], [phone] URIC 7.1 mg/dL (Abnormal) Range: 2.6-6.0 Comments: The drugs N-Acetylcysteine and Metamizole may falsely deressthis assay. 12-Nyy-398665:10 Vitamin D,25 Hydroxy Comments: [facility] [address] [place], [address] Vitamin D 25-OH 35.5 ng/mL (Normal) Comments: Vitamin D 25(OH) Status Range Deficiency <20 ng/mL (50nmol/L) Insuffciency 20 - 30 ng/mL (50 - 75 nmol/L) Sufficiency 30 - 100 ng/mL (75 - 250 nmol/L) Toxicity >100 ng/mL (>250 nmol/L) 78-Haa-465866:10 CALCIUM SERUM (72944) Comments: PATIENT NOT FASTINGPERFORMED BY: [facility] Sjmsrz3109 [facility] [id number] Information: [id number] Calcium, Serum 10.3 mg/dL (Normal) Range: 8.7-10.3 29-Snx-345649:10 MAGNESIUM (24844) Comments: PATIENT NOT FASTINGPERFORMED BY: [facility] Hkgamy9788 SocialGuidein [place] [id number] Magnesium, Serum 2.1 mg/dL (Normal) Range: 1.6-2.3 :14 Bedside Glucose Comments: [facility] LaboratoryPoint of Clfo[address] [place] [address] BEDSIDE GLU 110 mg/dL (Normal) Range: 70-110 Comments: MANAGEMENT OF PATIENT CARE PER NURSING PROTOCOL :26 Metabolic Panel, Basic Comments: PATIENT NOT FASTINGPERFORMED BY: [facility] Vqiygh1343 [facility] [id number] Information: [id number]; will review on 06/04 (40482) Calcium, Serum 10.0 mg/dL (Normal) Range: 8.7-10.3 [...] Glucose, Serum 104 mg/dL (Abnormal) Range: 65-99 34-Izc-800699:39 Magnesium Comments: ORDERED CA AND PTHINDRLUDA ORDERED CBC PTHIN RENAL VITD CRE/PROURIC [facility] [address] [place], [address] MG 2.0 mg/dL (Normal) Range: 1.8-2.4 :39 Protein+Creatinine Ratio,Urine Comments: [facility] [address] [place], [address] PROT:CRE RATIO 188 {mg/g_CRE} (Normal) Range: 0-200 PROTEIN,UR.RAN. < 6.0 mg/dL (Normal) UR CREAT 29.80 mg/dL (Normal) 97-Ojb-012920:39 PTH,INTACT Comments: [facility] [address] [place], [address] PTH,Intact 53 pg/mL (Normal) Range: 14-72 :39 Renal Profile Comments: ORDERED CA AND PTHINDR.LUZ ORDERED CBC PTHIN RENAL VITD CRE/PROURIC [facility] [address] [place], [address] CO2 22.0 mmol/L (Normal) Range: 21.0-32.0 CL [...] PTHINDR.LUZ ORDERED CBC PTHIN RENAL VITD CRE/PROURIC [facility] [address] [place], [phone] URIC 7.3 mg/dL (Abnormal) Range: 2.6-6.0 Comments: The drugs N-Acetylcysteine and Metamizole may falsely deressthis assay. 51-Spg-025080:39 Vitamin D,25 Hydroxy Comments: [facility] [address] [place], [phone] Vitamin D 25-OH 52.3 ng/mL (Normal) Comments: Vitamin D 25(OH) Status Range Deficiency <20 ng/mL (50nmol/L) Insuffciency 20 - 30 ng/mL (50 - 75 nmol/L) Sufficiency 30 - 100 ng/mL (75 - 250 nmol/L) Toxicity >100 ng/mL (>250 nmol/L) 8-Jhg-911171:09 URINE CALCIUM KAITLIN TIMED Comments: PATIENT NOT FASTINGPERFORMED BY: [facility] Pfteqi3812 [facility] [id number] Information: [id number] 2500ML START @6AM FINISH 05/05/16@ 6AM (05279) Calcium, Urine 24hr 45.0 {mg/24_hr} (Abnormal) Range: 100.0-300.0 Calcium, Urine 1.8 mg/dL (Normal) 02-May-20169:30 Fecal Occult Blood , Office (11341) Fecal Occult Blood , Office (Inhouse) negative (Normal) 42-Prt-578149:23 Crystals, Body Fluid Comments: [facility] [address] [place], [id number] PATH REV Reviewed (Normal) Comments: Negative for malignant cells.Mixture of calcium pyrophosphate (pseudogout) crystals andnondescript crystals are noted.Johnson Castro M.D. 04/29/16 SOURCE/BF SYNOVIAL (Normal) CRYSTALS/BF SEE PATH REV (Normal) 95-Uup-774967:23 Culture, Body Fluid Comments: [facility] [address] [place], [phone] CUBF See Note (Normal) Comments: List Antibiotics Last 48 Hours? UNKList Antibiotics to be Started? UNKGram StainCentrifuged Specimen? Culture performed on centrifuged specimen Gram Stain Rare Red Cell Stroma Rare Red Blood Cells No organisms seen Body Fluid CultNO GROWTH IN 14 DAYS Cult, AnaerobicNo growth in 5 days. 72-Jkf-727532:23 GLUCOSE, SYNOVIAL FLUID Comments: ORDERED WRONGSpecimen Source: [...] be integrated into the clinical contextfor interpretation. 58-Esu-347015:23 Synovial Fluid RBC, WBC AND Comments: [facility] Gzhazrcrkq1333 [facility] [place], [address] Diff PATH COM/SYFL March follow (Normal) OTHER [...] COLOR Yellow (Normal) VISCOSITY/SYFL Sl. Viscous (Normal) 8-Vgw-953677:58 CALCIUM SERUM (72763) Comments: PATIENT NOT FASTINGPERFORMED BY: [facility] [id number] Information: [id number] Calcium, Serum 10.6 mg/dL (Abnormal) Range: 8.7-10.3 :10 Microscopic Examination Comments: PATIENT WAS FASTINGPERFORMED BY: [employer]6370 [facility] [id number] Bacteria None seen (Normal) Mucus Threads Present (Normal) Epithelial Cells (non renal) 0-10 {/hpf} (Normal) Range: 0 - 10 RBC None seen {/hpf} (Normal) Range: 0 - 2 WBC 0-5 {/hpf} (Normal) Range: 0 - 5 :10 CALCIFIDIOL (55029) VIT D 25 Comments: PATIENT WAS FASTINGPERFORMED BY: [employer]6370 [facility] [id number] Vitamin D, 25-Hydroxy 63.0 ng/mL (Normal) Range: 30.0-100.0 Comments: Vitamin D deficiency has been defined by the [place] ofMedicine and an Endocrine Society practice guideline as alevel of serum 25-OH vitamin D less than 20 ng/mL (1,2).The Endocrine Society went on to further define vitamin Dinsufficiency as a level between 21 and 29 ng/mL (2).1. IOM ([place] of Medicine). 2010. Dietary reference intakes for calcium and D. [place]: The National Academies Press.2. Stephon MF, Ana [place], [place] ROMERO, et al. Evaluation, treatment, and prevention of vitamin D deficiency: an Endocrine Society clinical practice guideline. JCEM. 2010; 96(7):1911-30. :10 TSH (03058) Comments: PATIENT WAS FASTINGPERFORMED BY: PRATIMA [facility]6370 [facility] [id number] TSH 2.680 {uIU/mL} (Normal) Range: 0.450-4.500 :10 URINALYSIS, W/ MICRO (35627) Comments: PATIENT WAS FASTINGPERFORMED BY: [facility]6370 [facility] [id number] Microscopic Examination See below: (Normal) Comments: Microscopic was indicated and was performed. Microscopic Examination MICRON (Normal) Comments: Microscopic follows if indicated. Nitrite, Urine Negative (Normal) Urobilinogen,Semi-Qn 0.2 mg/dL (Normal) Range: 0.2-1.0 Bilirubin Negative (Normal) Occult Blood Negative (Normal) Ketones Negative (Normal) Glucose 3+ (Abnormal) Protein Negative (Normal) WBC Esterase Negative (Normal) Appearance Clear (Normal) Urine-Color Yellow (Normal) pH 6.5 (Normal) Range: 5.0-7.5 Specific [place] 1.022 (Normal) Range: 1.005-1.030 :10 MICROALBUMIN: CREATININE RATIO Comments: PATIENT WAS FASTINGPERFORMED BY: [facility]6370 [facility] [id number] (82070) AND (08610) Microalb/Creat Ratio 20.5 {mg/g_creat} (Normal) Range: 0.0-30.0 Microalbumin, Urine 20.1 ug/mL (Normal) Comments: Please note reference interval change Creatinine, Urine 97.9 mg/dL (Normal) Comments: Please note reference interval change :10 LIPID PANEL (41762) Comments: PATIENT WAS FASTINGPERFORMED BY: [facility]6370 [facility] [id number] LDL/HDL Ratio 2.0 {ratio_units} (Normal) Range: 0.0-3.2 [...] Cholesterol, Total 141 mg/dL (Normal) Range: 100-199 12-Dqp-96436:10 METABOLIC PANEL, COMPREHENSIVE Comments: PATIENT WAS FASTINGPERFORMED BY: [facility] Lmuupz6177 [facility] [id number]; will review on 04.18 (37733) ALT (SGPT) 18 [iU]/L (Normal) Range: 0-32 [...] DIFF WBC Comments: PATIENT WAS FASTINGPERFORMED BY: [facility]Tlzxzm4949 [facility] [id number] Information: [id number] (65385) Immature Grans (Abs) 0.0 {x10E3/uL} (Normal) Range: [...] (Normal) Range: 3.4-10.8 :02 HgA1C , Office (07813) HgA1C , Office 6.6 % (Normal) Range: 4.6 - 7.1 :02 Blood Glucose , Office (20862) Blood Glucose , Office 142 (Normal) 81-Wye-995451:20 NuSwab Vaginitis Plus Comments: PATIENT NOT FASTINGPERFORMED BY: Lab[address] [id number] Information: [id number] (STD W/O Herpes) (01414) Neisseria gonorrhoeae, YAIR Negative (Normal) Chlamydia trachomatis, YAIR Negative (Normal) Trich vag by YAIR Negative (Normal) Yana glabrata, YAIR Negative (Normal) Comments: This test was developed and its performance characteristics determinedby [employer]. It has not been cleared or approved [...] was developed and its performance characteristics determinedby [employer]. It has not been cleared or appro tima by the Food and DrugAdministration. The FDA has determined that such clearance orapproval is not necessary. BVAB 2 Low - 0 {Score} (Normal) Atopobium vaginae Low - 0 {Score} (Normal) 53-Dws-972059:56 Magnesium Comments: Test performed at:[facility] Ts[address] [place] [address] MG 2.2 mg/dL (Normal) Range: 1.8-2.4 53-Kes-699708:56 Protein+Creatinine Ratio,Urine Comments: Test performed at:[facility] [address] [place] [address] PROT:CRE RATIO 440 {mg/g_CRE} (Abnormal) Range: 0-200 PROTEIN,UR.RAN. 8.1 mg/dL (Normal) UR CREAT 18.20 mg/dL (Normal) 62-Wwq-899204:56 Renal Profile Comments: Test performed at:[facility] W[address] [place] [address] 829381 CO2 28.0 mmol/L (Normal) Range: 21.0-32.0 CL [...] Comments: Please note revised CREATININE reference range duckzkhgn07/22/2015. BUN 44 mg/dL (Abnormal) Range: 7-18 GLU 186 mg/dL (Abnormal) Range: 70-110 Comments: Fasting Glucose result greater than or equal to 126 mg/dLsuggests DIABETES MELLITUS per A.D.A. criteria. 82-Jvz-310487:56 Uric Acid Comments: Test performed at:[facility] [address] [place] [address] 387151 URIC 6.5 mg/dL (Abnormal) Range: 2.6-6.0 :56 Vitamin D,25 Hydroxy Comments: Test performed at:[facility] B[address]ll[address] [place] [address] 075551 Vitamin D 25-OH 67.0 ng/mL (Normal) Comments: Vitamin D 25(OH) Status Range Deficiency <20 ng/mL (50nmol/L) Insuffciency 20 - 30 ng/mL (50 - 75 nmol/L) Sufficiency 30 - 100 ng/mL (75 - 250 nmol/L) Toxicity >100 ng/mL (>250 nmol/L) 02-Tyg-661946:01 Rapid Strep Test, Office (31694) Rapid Strep Test, Office Negative (Normal) 75-Vsp-24709:21 HgA1C , Office (59914) HgA1C , Office 6.4 % (Normal) Range: 4.6 - 7.1 :21 Blood Glucose , Office (09736) Blood Glucose , Office 167 (Normal) :01 Microscopic Examination Comments: PATIENT WAS FASTINGPERFORMED BY: [address] [id number] Bacteria Few (Normal) Mucus Threads Present (Normal) Epithelial Cells (non renal) 0-10 {/hpf} (Normal) Range: 0 - 10 RBC 0-2 {/hpf} (Normal) Range: 0 - 2 WBC 6-10 {/hpf} (Abnormal) Range: 0 - 5 :50 Antinuclear Antibodies Direct Comments: PATIENT NOT FASTINGPERFORMED BY: [facility]6370 [facility] [id number] HEIDI Direct Negative (Normal) : C-Reactive Protein, 7.3 mg/L (Abnormal) Comments: PATIENT NOT FASTINGPERFORMED BY: [place] 4397870 [facility] [id number] 50 Quant Range: 0.0-4.9 :50 CBC, Platelet, No Differential Comments: PATIENT NOT FASTINGPERFORMED BY: [address] [id number] Platelets 253 {x10E3/uL} (Normal) Range: 150-379 RDW [...] Panel (14) Comments: PATIENT NOT FASTINGPERFORMED BY: [employer] Ehgcyx2293 [facility] [id number] Information: [id number] ALT (SGPT) 17 [iU]/L (Normal) Range: 0-32 [...] ng/mL (Normal) Comments: PATIENT NOT FASTINGPERFORMED BY: [employer] Difrbp9410 [facility] [id number] 50 Serum Comments: A serum folate concentration of less than 3.1 ng/mL isconsidered to represent clinical deficiency. :50 Rheumatoid Arthritis Factor Comments: PATIENT NOT FASTINGPERFORMED BY: [employer] Qbuswm8229 [facility] [id number] RA Latex Turbid. 10.5 {IU/mL} Range: 0.0-13.9 (Normal) Sedimentation 7 mm/h (Normal) Comments: PATIENT NOT FASTINGPERFORMED BY: [facility]6370 [facility] [id number] :50 Rate-Westergren Range: 0-40 TSH 2.450 {uIU/mL} Comments: PATIENT NOT FASTINGPERFORMED BY: [facility]6370 [facility] [id number] :50 (Normal) Range: 0.450-4.500 Vitamin B12 1684 pg/mL Comments: PATIENT NOT FASTINGPERFORMED BY: [facility]6370 [facility] [id number] :50 (Abnormal) Range: 211-946 Vitamin D, 25-Hydroxy 75.1 ng/mL Comments: PATIENT NOT FASTINGPERFORMED BY: [facility]6370 [facility] [id number] :50 (Normal) Range: 30.0-100.0 Comments: Vitamin D deficiency has been defined by the [place] ofMedicine and an Endocrine Society practice guideline as alevel of serum 25-OH vitamin D less than 20 ng/mL (1,2).The Endocrine Society went on to further define vitamin Dinsufficiency as a level between 21 and 29 ng/mL (2).1. IOM ([place] of Medicine). 2010. Dietary reference intakes for calcium and D. [place]: The National Academies Press.2. Stephon MF, Ana NC, Alka ROMERO, et al. Evaluation, treatment, and prevention of vitamin D deficiency: an Endocrine Society clinical practice guideline. JCEM. 2010; 96(7):1911-30. :57 Lower Respiratory Culture Comments: PATIENT NOT FASTINGPERFORMED BY: [facility]6370 [facility] [id number] Information: SRC:[facility] [id number] Result 1 RRF (Normal) Comments: Routine respiratory hermelindo Lower Respiratory Culture Final report (Normal) :01 MICROALBUMIN: CREATININE RATIO Comments: PATIENT WAS FASTINGPERFORMED BY: [employer] Opjpne8086 [facility] [id number] (61244) AND (15391) Microalb/Creat Ratio 22.8 {mg/g_creat} (Normal) Range: 0.0-30.0 Microalbumin, Urine 18.8 ug/mL (Abnormal) Range: 0.0-17.0 Creatinine, Urine 82.6 mg/dL (Normal) Range: 15.0-278.0 : URINALYSIS (67912) Comments: PATIENT WAS FASTINGPERFORMED BY: [facility] Nlcang7107 [facility] [id number] Microscopic Examination See below: (Normal) Comments: Microscopic was indicated and was performed. Nitrite, Urine Negative (Normal) Urobilinogen,Semi-Qn 0.2 mg/dL (Normal) Range: 0.0-1.9 Bilirubin Negative (Normal) Occult Blood Negative (Normal) Ketones Negative (Normal) Glucose 2+ (Abnormal) Protein Negative (Normal) WBC Esterase Trace (Abnormal) Appearance Clear (Normal) Urine-Color Yellow (Normal) pH 6.5 (Normal) Range: 5.0-7.5 Specific [place] 1.020 (Normal) Range: 1.005-1.030 :01 Metabolic Panel, Comments: PATIENT WAS FASTINGPERFORMED BY: [facility]General [facility] Oprraf8193 [facility] [id number] Information: [id number], [id number] Comprehensive (48788) ALT (SGPT) 17 [iU]/L (Normal) Range: 0-32 [...] 110 mg/dL (Abnormal) Range: 65-99 :01 CALCIFEDIOL (99047) Comments: PATIENT WAS FASTINGPERFORMED BY: Recorded Future70 [employer] [facility] HospitalCaribou BiosciencesWakeMed North Hospital [id number] Vitamin D, 25-Hydroxy 101.0 ng/mL (Abnormal) Range: 30.0-100.0 Comments: Vitamin D deficiency has been defined by the [place] ofMedicine and an Endocrine Society practice guideline as alevel of serum 25-OH vitamin D less than 20 ng/mL (1,2).The Endocrine Society went on to further define vitamin Dinsufficiency as a level between 21 and 29 ng/mL (2).1. IOM ([place] of Medicine). 2010. Dietary reference intakes for calcium and D. [place]: The National Academies Press.2. Stephon MF, Ana NC, Alka ROMERO, et al. Evaluation, treatment, and prevention of vitamin D deficiency: an Endocrine Society clinical practice guideline. JCEM. 2010; 96(7):1911-30. :01 Lipid Panel (96758) Comments: PATIENT WAS FASTINGPERFORMED BY: [employer]6370 [facility] [id number] LDL/HDL Ratio 1.4 {ratio_units} (Normal) Range: 0.0-3.2 [...] (Normal) Range: 100-199 :06 HgA1C , Office (01537) HgA1C , Office 6.4 % (Normal) Range: 4.6 - 7.1 :06 Blood Glucose , Office (94394) Blood Glucose , Office 168 (Normal) :43 CBC W/Diff, Automated Comments: Test performed at:[facility] Cplobqbnyh2865 [place] [address] Absolute Lymph 1.33 {X10_3/ul} (Normal) Range: 0.83-4.51 [...] Range: 4.4-11.0 :43 Magnesium Comments: Test performed at:[facility] Dpteodybza[address] [place] [address] 16707 MG 1.6 mg/dL (Abnormal) Range: 1.8-2.4 :43 Protein+Creatinine Ratio,Urine Comments: Test performed at:[facility] Amrkzbyrnj[address] [place] [address] [id number] PROT:CRE RATIO 143 {mg/g_CRE} (Normal) Range: 0-200 PROTEIN,UR.RAN. 16.0 mg/dL (Abnormal) UR CREAT 111.6 mg/dL (Normal) :43 Renal Profile Comments: Test performed at:[facility] Fzugvqym[address] [place] [address] [id number] CO2 29.0 mmol/L (Normal) Range: 21.0-32.0 CL [...] criteria. :43 Uric Acid Comments: Test performed at:[facility] Mmodommmgs[address] [place], [place] [id number] URIC 7.5 mg/dL (Abnormal) Range: 2.6-6.0 :43 Vitamin D,25 Hydroxy Comments: Test performed at:[facility] Rhgoufmgkq[address] [place], [place] [id number] Vitamin D 25-OH 48.0 ng/mL (Normal) Comments: Vitamin D 25(OH) Status Range Deficiency <20 ng/mL (50nmol/L) Insuffciency 20 - 30 ng/mL (50 - 75 nmol/L) Sufficiency 30 - 100 ng/mL (75 - 250 nmol/L) Toxicity >100 ng/mL (>250 nmol/L) :16 HgA1C , Office (01509) HgA1C , Office 5.6 % (Normal) Range: 4.6 - 7.1 :16 Blood Glucose , Office (01421) Blood Glucose , Office 113 (Normal) :35 CALCIUM SERUM (59935) Comments: PATIENT NOT FASTINGPERFORMED BY: Signicast[address] [id number] Information: [id number] Calcium, Serum 10.0 mg/dL (Normal) Range: 8.6-10.2 :55 HEIDI Negative (Normal) Comments: Performed at: [facility] [employer] [id number] Director: Taurus Morrissey MD, Phone: [phone] CBCD ALC 1.15 {X10_3/ul} (Normal) Range: [...] ttHEBSAG Negative (Normal) Comments: Performed at: - Lab[address] [id number] Director: Taurus Morrissey MD, Phone: [phone] at: [facility]Co[address] [id number] 1Lab Director: Juan Carlos Mathew MD, Phone: [phone] HECAB tHECAB 0.1 {s/co_ratio} (Normal) Range: 0.0-0.9 Comments: Negative: < 0.8Indeterminate 0.8 - 0.9Positive: > 0.9In order to reduce the incidence of a false positiveresult, the CDC recommends that all s/co ratiosbetween 1.0 and 10.9 be confirmed by a more specificsupplemental or PCR testing. [facility]General [facility] offers HCV Abw/Reflex to Verification test #[id number]. :55 RF < 10.0 {IU/mL} (Normal) :55 SED tSEDRATE 7 mm/h (Normal) Range: 0-30 :55 VITD 45.5 mg/mL (Normal) Comments: Vitamin D 25(OH) Status RangeDeficiency <20 ng/mL (50nmol/L)Insuffciency 20 - 30 ng/mL (50 - 75 nmol/L)Sufficiency 30 - 100 ng/mL (75 - 250 nmol/L)Toxicity >100 ng/mL (>250 nmol/L) :05 CALCIFEDIOL (31141) Comments: PATIENT NOT FASTINGPERFORMED BY: [facility]6370 [facility] [id number] Information: [id number] Vitamin D, 25-Hydroxy 34.1 ng/mL (Normal) Range: 30.0-100.0 Comments: Vitamin D deficiency has been defined by the [place] ofUniversity Hospitals Ahuja Medical Centercine and an Endocrine Society practice guideline as alevel of serum 25-OH vitamin D less than 20 ng/mL (1,2).The Endocrine Society went on to further define vitamin Dinsufficiency as a level between 21 and 29 ng/mL (2).1. IOM ([place] of Medicine). 2010. Dietary reference intakes for calcium and D. [place]: The National Academies Press.2. Stephon MF, Ana NC, Alka ROMERO, et al. Evaluation, treatment, and prevention of vitamin D deficiency: an Endocrine Society clinical practice guideline. JCEM. 2010; 96(7):1911-30. :05 CALCIUM SERUM (48284) Comments: PATIENT NOT FASTINGPERFORMED BY: [facility]6370 [facility] [id number] Calcium, Serum 10.3 mg/dL (Abnormal) Range: 8.6-10.2 :43 CALCIFIDIOL (34269) VIT D Comments: PATIENT NOT FASTINGPERFORMED BY: [facility]6370 [facility] [id number] Information: [id number] 25 Vitamin D, 25-Hydroxy 44.7 ng/mL (Normal) Range: 30.0-100.0 Comments: Vitamin D deficiency has been defined by the [place] ofMedicine and an Endocrine Society practice guideline as alevel of serum 25-OH vitamin D less than 20 ng/mL (1,2).The Endocrine Society went on to further define vitamin Dinsufficiency as a level between 21 and 29 ng/mL (2).1. IOM ([place] of Medicine). 2010. Dietary reference intakes for calcium and D. [place]: The National Academies Press.2. Stephon MF, Ana ROY, Alka ROMERO, et al. Evaluation, treatment, and prevention of vitamin D deficiency: an Endocrine Society clinical practice guideline. JCEM. 2010; 96(7):1911-30. 83-Hlh-282349:36 URINE CALCIUM KAITLIN TIMED Comments: PATIENT NOT FASTINGPERFORMED BY: [facility]6370 [facility] [id number] Information: [id number] 1950ML START 05/21@630AM FINISH 05/22/14@6 30AM 24 Hour (42539) Calcium, Urine 24hr 93.6 {mg/24_hr} (Abnormal) Range: 100.0-300.0 Calcium, Urine 4.8 mg/dL (Normal) 03-Srk-889000:43 PARATHORMONE (95746) Comments: PATIENT NOT FASTINGPERFORMED BY: [facility]6370 [facility] [id number] PTH, Intact 22 pg/mL (Normal) Range: 15-65 38-Ams-16734:56 Metabolic Panel, Basic Comments: drawn next ; PATIENT NOT FASTINGPERFORMED BY: [facility]6370 [facility] [id number] Information: [id number] (08009) Calcium, Serum 10.5 mg/dL (Abnormal) Range: 8.6-10.2 [...] Glucose, Serum 113 mg/dL (Abnormal) Range: 65-99 6-Fys-079198:50 METABOLIC PANEL, Comments: PATIENT NOT FASTINGPERFORMED BY: LabCoTuba City Regional Health Care CorporationQcsohw4925 [facility] [id number] Information: [id number] COMPREHENSIVE (63408) ALT (SGPT) 22 [iU]/L (Normal) Range: 0-32 [...] (Abnormal) Range: 65-99 :13 HgA1C , Office (25923) HgA1C , Office 6.5 % (Normal) Range: 4.6 - 7.1 :13 Blood Glucose , Office (05382) Blood Glucose , Office 163 (Normal) :41 [...] CREATININE RATIO Comments: PATIENT WAS FASTINGPERFORMED BY: [facility]isionHawkW[facility]Med [facility] Hospital [id number] (83396) AND (44792) Microalb/Creat Ratio 6.2 {mg/g_creat} (Normal) Range: 0.0-30.0 Microalbumin, Urine 2.2 ug/mL (Normal) Range: 0.0-17.0 Creatinine, Urine 35.7 mg/dL (Normal) Range: 15.0-278.0 :38 URINALYSIS (12900) Comments: PATIENT WAS FASTINGPERFORMED BY: [employer]6370 [facility] [id number] Microscopic Examination MICRON (Normal) Comments: Microscopic follows if indicated. Nitrite, Urine Negative (Normal) Urobilinogen,Semi-Qn 0.2 mg/dL (Normal) Range: 0.0-1.9 Bilirubin Negative (Normal) Occult Blood Negative (Normal) Ketones Negative (Normal) Glucose Negative (Normal) Protein Negative (Normal) WBC Esterase Negative (Normal) Appearance Clear (Normal) Urine-Color Yellow (Normal) pH 7.5 (Normal) Range: 5.0-7.5 Specific [place] 1.010 (Normal) Range: 1.005-1.030 :38 CALCIFEDIOL (12448) Comments: PATIENT WAS FASTINGPERFORMED BY: [facility]QurAtrium Health [id number] Vitamin D, 25-Hydroxy 44.7 ng/mL (Normal) Range: 30.0-100.0 Comments: Vitamin D deficiency has been defined by the [place] ofMedicine and an Endocrine Society practice guideline as alevel of serum 25-OH vitamin D less than 20 ng/mL (1,2).The Endocrine Society went on to further define vitamin Dinsufficiency as a level between 21 and 29 ng/mL (2).1. IOM ([place] of Medicine). 2010. Dietary reference intakes for calcium and D. [place]: The National Academies Press.2. Stephon MF, Ana ROY, Alka ROMERO, et al. Evaluation, treatment, and prevention of vitamin D deficiency: an Endocrine Society clinical practice guideline. JCEM. 2010; 96(7):1911-30. :38 TSH (21656) Comments: PATIENT WAS FASTINGPERFORMED BY: [facility] Jmsmbp7342 [facility] [id number] TSH 2.930 {uIU/mL} (Normal) Range: 0.450-4.500 :38 CBC with manual diff Comments: PATIENT WAS FASTINGPERFORMED BY: [facility] Sdecwi3033 [facility] [id number] Information: [id number] (17841) Immature Grans (Abs) 0.0 {x10E3/uL} (Normal) Range: [...] Comprehensive Comments: PATIENT WAS FASTINGPERFORMED BY: [facility] Nbhnxs6704 [facility] [id number] (40706) ALT (SGPT) 22 [iU]/L (Normal) Range: 0-32 [...] Glucose, Serum 92 mg/dL (Normal) Range: 65-99 46-Gbr-52975:38 Lipid Panel (40151) Comments: PATIENT WAS FASTINGPERFORMED BY: [facility])Fxdhuw6174 [facility] [id number] LDL/HDL Ratio 1.2 {ratio_units} (Normal) Range: 0.0-3.2 LDL Cholesterol Calc 53 mg/dL (Normal) Range: 0-99 VLDL Cholesterol Yamilka 27 mg/dL (Normal) Range: 5-40 HDL Cholesterol 45 mg/dL (Normal) Comments: According to ATP-III Guidelines, HDL-C >59 mg/dL is considered anegative risk factor for CHD. Triglycerides 135 mg/dL (Normal) Range: 0-149 Cholesterol, Total 125 mg/dL (Normal) Range: 100-199 19-Jym-56028:05 LIPID PANEL (08044) Comments: PATIENT WAS FASTINGPERFORMED BY: [facility]Igpyyc0320 [facility] [id number] Information: [id number] LDL/HDL Ratio 1.6 {ratio_units} (Normal) Range: 0.0-3.2 LDL Cholesterol Calc 76 mg/dL (Normal) Range: 0-99 VLDL Cholesterol Yamilka 30 mg/dL (Normal) Range: 5-40 HDL Cholesterol 49 mg/dL (Normal) Comments: According to ATP-III Guidelines, HDL-C >59 mg/dL is considered anegative risk factor for CHD. Triglycerides 148 mg/dL (Normal) Range: 0-149 Cholesterol, Total 155 mg/dL (Normal) Range: 100-199 00-Oih-145959:43 FECAL OCCULT HGB ASSAY- tubes sent home (24686) FECAL OCCULT HGB ASSAY, QUAL, 1-3 SIMULTANEOU negative (Normal) 29-Dtj-729101:40 Nuclear Stress Test Radiology Report See Note [...] The patient was injected with 31.6 mCi hiDu18j Cardiolite and subsequently stress SPECT Cardiolite nuclear [...] Wiliam MASON by Mayur FELIX,Yosi on 07/29/13 2711 Sign by: Yosi Merchant MD 03-Bmm-56000:52 KNEE 1 OR 2 VIEWS Radiology Report [...] Ferguson M.D.July 29, 2013 at 5:00:35 PM [id number] Signed RU/RU If you are the referring phys ician and would like to consult with theradiologist who provided this interpretation, please contact Alejandro Horton at [phone]. If this radiologist is unavailable, youwillbe directed to [facility] radiologist to assist. If you are a patient with a question regarding this report, pleasecontactyour referring physician directly. Professional Interpretation Provided By: PPTV, Phone , These documents contain legally protected [...] on 07/29/131714 Si gn by: Ag Ferguson 76-Ifs-03536:52 KNEE 1 OR 2 VIEWS Radiology Report [...] Ferguson M.D.July 29, 2013 at 5:02:45 PM [id number] Signed RU/RU If you are the referring physician and would like to consult with therad iologist who provided this interpretation, please contact Alejandro Horton at [phone]. If this radiologist is unavailable, youwillbe directed to another radiologist to assist. If you are a sandra ent with a question regarding this report, pleasecontactyour referring physician directly. Professional Interpretation Provided By: PPTV, Phone , These documents con tain legally [...] PhyllisAgTranscribed on 07/29/131715 by ITS IMPORTSign by gA Ferguson on 07/29/131716 Sign by: Ag Ferguson 88-Ppd-421492:27 CCP ANTIBODY (17230) Comments: PATIENT NOT FASTINGPERFORMED BY: [employer] Labdeeplocal6370 [facility] [id number] BY: [employer] [id number] CCP Antibodies IgG/IgA 5 {units} (Normal) Range: 0-19 Comments: Negative <20 Weak positive 20 - 39 Moderate positive 40 - 59 Strong positive >59 13-Pjj-373068:27 SED RATE ERYTHROCYTE Comments: PATIENT NOT FASTINGPERFORMED BY: LocBox Labsrp Akwxgf4052 [facility] [id number] BY: [employer] [id number] (10368) Sedimentation Rate-Westergren 2 mm/h (Normal) Range: 0-40 51-Njn-195975:27 C-REACTIVE PROTEIN Comments: PATIENT NOT FASTINGPERFORMED BY: [employer] LabCovacsisrp Vpjazf7049 [facility] [id number] BY: [employer] [id number] (60593) C-Reactive Protein, Quant 2.1 mg/L (Normal) Range: 0.0-4.9 72-Fmb-884921:27 TSH (88029) Comments: PATIENT NOT FASTINGPERFORMED BY: CB LabCovacsisrp Amstqd7018 [facility] [id number] BY: [address] [id number] TSH 1.630 {uIU/mL} (Normal) Range: 0.450-4.500 23-Niu-078714:27 RHEUMATOID FACTOR-QUANT Comments: PATIENT NOT FASTINGPERFORMED BY: SignicastEdward Ville 0767870 [facility] [id number] BY: [address] [id number] (48952) RA Latex Turbid. 9.7 {IU/mL} (Normal) Range: 0.0-13.9 35-Kpl-583459:27 HEIDI (ANTINUCLEAR ANTIBODY) Comments: PATIENT NOT FASTINGPERFORMED BY: LabCovacsisEdward Ville 0767870 [facility] [id number] BY: [address] [id number] (44560) HEIDI Direct Negative (Normal) :27 CBC WITH MANUAL DIFF Comments: PATIENT NOT FASTINGPERFORMED BY: [employer] [id number] BY: [address] [id number] Inf ormation: [id number] (60924) Immature Grans (Abs) 0.0 {x10E3/uL} (Normal) Range: [...] 3.77-5.28 WBC 8.5 {x10E3/uL} (Normal) Range: 4.0-10.5 30-Gkc-395070:27 METABOLIC PANEL, Comments: PATIENT NOT FASTINGPERFORMED BY: CB [facility] Cssohz4336 [facility] [id number] BY: BN [facility] [address] [id number] RUST (27416) ALT (SGPT) 24 [iU]/L (Normal) Range: 0-32 [...] (Normal) Range: 65-99 :22 HgA1C , Office (77276) HgA1C , Office 5.9 % (Normal) Range: 4.6 - 7.1 :22 Blood Glucose , Office (55758) Blood Glucose , Office 148 (Normal) Comments: non fasting :44 MAGNESIUM (16531) Comments: copy to dr jose mayes; PATIENT NOT FASTINGPERFORMED BY: Recorded Future70 [facility] [id number] Magnesium, Serum 2.0 mg/dL (Normal) Range: 1.6-2.6 :44 Metabolic Panel, Basic Comments: copy to dr jose Mayes; PATIENT NOT FASTINGPERFORMED BY: [employer] LabCovacsis Rjqisy6817 [facility] [id number] Information: [id number] (79635) Calcium, Serum 10.1 mg/dL (Normal) Range: 8.6-10.2 [...] Glucose, Serum 141 mg/dL (Abnormal) Range: 65-99 46-Uep-712196:10 PTT (Activated Partial Comments: PATIENT NOT FASTINGPERFORMED BY: [place] 4397870 [facility] [id number] Thromboplastin Time) (18069) aPTT 30 {sec} (Normal) Range: 24-33 Comments: This test has not been validated for monitoring unfractionated heparintherapy. aPTT-based therapeutic ranges for unfractionated heparintherapy have not been established. For general guidelines onHeparin monitoring, refer to the [facility] Directory of Services. 12-Ghl-306693:10 PT (Prothrobim Time) Comments: PATIENT NOT FASTINGPERFORMED BY: [address] [id number] Information: [id number] (55033) Prothrombin Time 10.4 {sec} (Normal) Range: 9.1-12.0 INR 1.0 (Normal) Range: 0.8-1.2 Comments: Reference interval is for non-anticoagulated patients. . Suggested INR therapeutic range for Vitamin K anta gonist therapy: Standard Dose (moderate intensity therapeutic range): 2.0 - 3.0 Higher intensity therapeutic range 2.5 - 3.5 08-Osu-849791:10 Potassium Serum (32662) Comments: PATIENT NOT FASTINGPERFORMED BY: [place] 4397870 [facility] [id number] Potassium, Serum 3.9 mmol/L (Normal) Range: 3.5-5.2 39-Urn-693898:10 Magnesium (24114) Comments: PATIENT NOT FASTINGPERFORMED BY: [place] 4397870 [facility] [id number] Magnesium, Serum 1.9 mg/dL (Normal) Range: 1.6-2.6 :59 HgA1C , Office (63994) HgA1C , Office 5.7 % (Normal) Range: 4.6 - 7.1 :59 Blood Glucose , Office (78900) Blood Glucose , Office 149 (Normal) :08 TSH (10119) Comments: PATIENT WAS FASTINGPERFORMED BY: [address] [id number] TSH 2.390 {uIU/mL} (Normal) Range: 0.450-4.500 :08 URINALYSIS, W/ MICRO (13319) Comments: PATIENT WAS FASTINGPERFORMED BY: [facility])Snnguv2884 [facility] [id number] Microscopic Examination See below: (Normal) Microscopic Examination MICRON (Normal) Comments: Microscopic follows if indicated. Nitrite, Urine Negative (Normal) Urobilinogen,Semi-Qn 0.2 mg/dL (Normal) Range: 0.0-1.9 Bilirubin Negative (Normal) Occult Blood Negative (Normal) Ketones Negative (Normal) Glucose Negative (Normal) Protein Negative (Normal) Appearance Clear (Normal) WBC Esterase Negative (Normal) pH 7.5 (Normal) Range: 5.0-7.5 Specific [place] 1.013 (Normal) Range: 1.005-1.030 Urine-Color Yellow (Normal) :08 MICROALBUMIN: CREATININE RATIO Comments: PATIENT WAS FASTINGPERFORMED BY: SignicastT[facility] City Regional Health Care CorporationHpuhkn9407 [facility] [id number] (66918) AND (97408) Microalb/Creat Ratio 3.8 {mg/g_creat} (Normal) Range: 0.0-30.0 Microalbumin, Urine 2.9 ug/mL (Normal) Range: 0.0-17.0 Creatinine, Urine 77.3 mg/dL (Normal) Range: 15.0-278.0 :08 METABOLIC PANEL, COMPREHENSIVE Comments: PATIENT WAS FASTINGPERFORMED BY: [facility]Xqmswa4959 [facility] [id number] (47989) ALT (SGPT) 17 [iU]/L (Normal) Range: 0-32 [...] mg/dL (Abnormal) Range: 65-99 :08 LIPID PANEL (98571) Comments: PATIENT WAS FASTINGPERFORMED BY: [employer] [facility] [id number] LDL/HDL Ratio 2.1 {ratio_units} (Normal) Range: 0.0-3.2 [...] MANUAL DIFF Comments: PATIENT WAS FASTINGPERFORMED BY: Notorious Ilfnfe0160 [facility] [id number] Information: ADD [id number] AND DRAW FEE 99 2772 (79782) Immature Grans (Abs) 0.0 {x10E3/uL} (Normal) Range: [...] Microscopic Examination Comments: PATIENT WAS FASTINGPERFORMED BY: [facility]CoCap[facility])Flhddm7786 [facility] [id number] Bacteria None seen (Normal) Mucus Threads Present (Normal) Epithelial Cells (non renal) 0-10 {/hpf} (Normal) Range: 0 - 10 RBC 0-3 {/hpf} (Normal) Range: 0 - 3 WBC 0-5 {/hpf} (Normal) Range: 0 - 5 :49 HgA1C , Office (15265) HgA1C , Office 5.8 % (Normal) Range: 4.6 - 7.1 73-Nna-87168:49 Blood Glucose , Office (91988) Blood Glucose , Office 142 (Normal) 9-Yuh-815964:13 ALFONZO CULTURE-OTHER (19399) Comments: PATIENT NOT FASTINGPERFORMED BY: Peel-WorksCheryl V[place] 2027970 [facility] [id number] Information: SRC:THRT [id number] Result 1 RRF (Normal) Comments: Routine respiratory hermelindo Upper Respiratory Culture Final report (Normal) 5-Jui-599638:30 Rapid Strep Test, Office (64817) Rapid Strep Test, Office Negative (Normal) 52-Kzv-056234:36 URIC ACID BLOOD (68673) Comments: PATIENT NOT FASTINGPERFORMED BY: [employer] [id number] Information: [id number] Uric Acid, Serum 6.6 mg/dL (Normal) Range: 2.5-7.1 Comments: Therapeutic target for gout patients: <6.0 :29 Blood Glucose , Office (86194) Blood Glucose , Office 128 (Normal) :29 HgA1C , Office (95497) HgA1C , Office 5.5 % (Normal) Range: 4.6 - 7.1 50-Jsj-436075:11 HgA1C , Office (94909) HgA1C , Office 5.5 % (Normal) Range: 4.6 - 7.1 67-Smg-817981:11 Blood Glucose , Office (08602) Blood Glucose , Office 127 (Normal) :35 Microscopic Examination Comments: PATIENT WAS FASTINGPERFORMED BY: [facility] Center6370 [facility] [id number] Bacteria Few (Normal) Mucus Threads Present (Normal) Cast Type Hyaline casts (Normal) Casts Present {/lpf} (Abnormal) Epithelial Cells (non renal) 0-10 {/hpf} (Normal) Range: 0 - 10 RBC 0-3 {/hpf} (Normal) Range: 0 - 3 WBC 6-10 {/hpf} (Abnormal) Range: 0 - 5 :35 TSH (97705) Comments: PATIENT WAS FASTINGPERFORMED BY: [facility]6370 [facility] [id number] TSH 1.550 {uIU/mL} (Normal) Range: 0.450-4.500 :35 URINALYSIS, W/ MICRO (15574) Comments: PATIENT WAS FASTINGPERFORMED BY: [facility]6370 [facility] [id number] Microscopic Examination See below: (Normal) Nitrite, Urine Negative (Normal) Urobilinogen,Semi-Qn 0.2 mg/dL (Normal) Range: 0.0-1.9 Bilirubin Negative (Normal) Occult Blood Negative (Normal) Ketones Negative (Normal) Glucose Negative (Normal) Protein Negative (Normal) WBC Esterase 1+ (Abnormal) Appearance Clear (Normal) Urine-Color Yellow (Normal) pH 6.5 (Normal) Range: 5.0-7.5 Specific [place] 1.019 (Normal) Range: 1.005-1.030 :35 MICROALBUMIN: CREATININE RATIO Comments: PATIENT WAS FASTINGPERFORMED BY: [facility]6370 [facility] [id number] (01848) AND (82465) Microalb/Creat Ratio 7.8 {mg/g_creat} (Normal) Range: 0.0-30.0 Microalbumin, Urine 17.2 ug/mL (Abnormal) Range: 0.0-17.0 Creatinine, Urine 220.8 mg/dL (Normal) Range: 15.0-278.0 :35 METABOLIC PANEL, COMPREHENSIVE Comments: PATIENT WAS FASTINGPERFORMED BY: [facility]6370 [facility] [id number] (35598) ALT (SGPT) 17 [iU]/L (Normal) Range: 0-40 [...] mg/dL (Normal) Range: 65-99 :35 LIPID PANEL (42378) Comments: PATIENT WAS FASTINGPERFORMED BY: Recorded Future70 [facility] [id number] LDL/HDL Ratio 1.0 {ratio_units} (Normal) Range: 0.0-3.2 [...] MANUAL DIFF Comments: PATIENT WAS FASTINGPERFORMED BY: Recorded Future70 [facility] [id number] Information: [id number] (16276) Immature Grans (Abs) 0.0 {x10E3/uL} (Normal) Range: [...] (Normal) Range: 4.0-10.5 :33 HgA1C , Office (11129) HgA1C , Office 5.7 % (Normal) Range: 4.6 - 7.1 :33 Blood Glucose , Office (17253) Blood Glucose , Office 115 (Normal) 70-Hqe-981276:50 KIDNEY Radiology Report See Note (Normal) Comments: [...] 07/19/11 0430 Sign by: Marciano Fountain MD 20-Ykc-657585:50 PARATHORMONE (78627) Comments: PATIENT NOT FASTINGPERFORMED BY: [facility]Zzyahs7472 [facility] [id number] PTH, Intact 20 pg/mL (Normal) Range: 15-65 64-Wwh-743810:50 Metabolic Panel, Comments: PATIENT NOT FASTINGPERFORMED BY: PRATIMA [facility] Xzhbcf3480 [facility] [id number] Information: [id number] Comprehensive (29259) ALT (SGPT) 23 [iU]/L (Normal) Range: 0-40 [...] Glucose, Serum 94 mg/dL (Normal) Range: 65-99 42-Teg-755307:06 Metabolic Panel, Comments: PATIENT NOT FASTINGPERFORMED BY: [employer] Epfjmv5269 [facility] [id number] Information: [id number] Comprehensive (93692) ALT (SGPT) 30 [iU]/L (Normal) Range: 0-40 [...] METABOLIC PANEL, Comments: PATIENT WAS FASTINGPERFORMED BY: [employer]6370 [facility] [id number] Information: [id number] COMPREHENSIVE (02091) ALT (SGPT) 27 [iU]/L (Normal) Range: 0-40 [...] Glucose, Serum 85 mg/dL (Normal) Range: 65-99 75-Bjr-30399:17 LIPID PANEL (27222) Comments: PATIENT WAS FASTINGPERFORMED BY: [facility]Djgblh7148 [facility] [id number] LDL/HDL Ratio 1.1 {ratio_units} (Normal) Range: 0.0-3.2 LDL Cholesterol Calc 46 mg/dL (Normal) Range: 0-99 VLDL Cholesterol Yamilka 28 mg/dL (Normal) Range: 5-40 HDL Cholesterol 41 mg/dL (Normal) Comments: According to ATP-III Guidelines, HDL-C >59 mg/dL is considered anegative risk factor for CHD. Triglycerides 140 mg/dL (Normal) Range: 0-149 Cholesterol, Total 115 mg/dL (Normal) Range: 100-199 :38 Blood Glucose , Office (26994) Blood Glucose , Office 132 (Normal) :38 HgA1C , Office (02364) HgA1C , Office 5.7 % (Normal) Range: 4.6 - 7.1 87-Pkc-101317:01 BILAT SCRN DIGITAL & CAD Radiology Report [...] 1051 S ign by: Anam Larios MD 31-Wci-050026:01 DEXA BONE DENSITY STUDY (HP) Radiology Report [...] FECAL OCCULT HGB ASSAY- tubes sent home (87057) FECAL OCCULT HGB ASSAY, QUAL, 1-3 SIMULTANEOU negative (Normal) :32 HgA1C , Office (65069) HgA1C , Office 8.6 % (Abnormal) Range: 4.6 - 7.1 :32 Blood Glucose , Office (72824) Blood Glucose , Office 324 (Normal) :30 [...] {uIU/mL} (Normal) Range: 0.358-3.74 :45 CULTURE, SPUTUM (56972) Comments: PATIENT NOT FASTINGPERFORMED BY: [facility]6370 [facility] [id number] Information: SRC:[facility] [id number] Result 1 RRF (Normal) Comments: Routine respiratory hermelindo Lower Respiratory Culture Final report (Normal) :48 HgA1C , Office (81552) HgA1C , Office 5.8 % (Normal) Range: 4.6 - 7.1 :48 Blood Glucose , Office (82456) Blood Glucose , Office 124 (Normal) :20 CHEST WITH CONTRAST Radiology Report See Note (Normal) Comments: Exam Number: [id number] CLINICAL:Sarcoidosis, shortness of breath, wheezing CT CHEST [...] allunchanged. Previous cholecystectomy? Reported By: PO MANCILLA 76-Hhb-07624:15 SERUM CRE & GFR EST GFR - AA 65 mL/min (Normal) EST GFR 54 mL/min (Abnormal) CREAT,SERUM 1.1 mg/dL (Abnormal) Range: 0.6-1.0 53-Yna-443272:42 CHEST, PA AND LATERAL (MT) Radiology Report See Note (Normal) Comments: Exam Number: [id number] CHEST X- RAY PA AND LATERAL VIEWS [...] moderate dextroscoliotic curvature. Reported By: Joseph Núñez 32-Njx-652514:15 MAGNESIUM (68392) Comments: PATIENT NOT FASTINGPERFORMED BY: Recorded Future70 [facility] [id number] Magnesium, Serum 2.1 mg/dL (Normal) Range: 1.6-2.6 56-Pux-737789:15 Renal function Panel Comments: PATIENT NOT FASTINGPERFORMED BY: [employer]6370 [facility] [id number] Information: [id number] (02568) Albumin, Serum 4.7 g/dL (Normal) Range: 3.5-5.5 [...] (Abnormal) Range: 65-99 :46 HgA1C , Office (69038) HgA1C , Office 6.0 % (Normal) Range: 4.6 - 7.1 :46 Blood Glucose , Office (71709) Blood Glucose , Office 140 (Normal) :27 [...] T PROT 7.8 g/dL (Normal) Range: 6.4-8.2 59-Sme-035980:11 CBC with manual diff Comments: PATIENT NOT FASTINGPERFORMED BY: [facility]Rcljbe1088 [facility] [id number] Information: [id number] (47710) Baso (Absolute) 0.0 {x10E3/uL} (Normal) Range: 0.0-0.2 [...] 3.80-5.10 WBC 9.0 {x10E3/uL} (Normal) Range: 4.0-10.5 96-Tig-363611:55 Microscopic Examination Comments: PATIENT WAS FASTINGPERFORMED BY: S7 [employer] [facility] [id number] BY: Signicast [facility] [id number] Bacteria Few (Normal) Cast Type Hyaline casts (Normal) Mucus Threads Present (Normal) Casts Present {/lpf} (Abnormal) Epithelial Cells (non renal) 0-10 {/hpf} (Normal) Range: 0 - 10 RBC 0-3 {/hpf} (Normal) Range: 0 - 3 WBC 0-5 {/hpf} (Normal) Range: 0 - 5 45-Qzj-078402:34 HgA1C , Office (68120) HgA1C , Office 5.9 % (Normal) Range: 4.6 - 7.1 30-Lij-036468:34 Blood Glucose , Office (33581) Blood Glucose , Office 140 (Normal) 41-Eav-342371:55 TSH (24273) Comments: PATIENT WAS FASTINGPERFORMED BY: S7 [employer]2500 [facility] [id number] BY: [facility]Zqwsek6429 [facility] [id number] TSH 0.541 {uIU/mL} (Normal) Range: 0.450-4.500 Comments: Effective December 24, 2009, TSH reference interval for11 - 19 years will be changing to: 0.450 - 4.500 uIU/mLReference interval for all other ages will NOT be affected. :55 URINALYSIS, W/ MICRO Comments: PATIENT WAS FASTINGPERFORMED BY: Friends HospitalNetnui.com[address] [id number] BY: Signicast [employer] [facility] [id number] (24833) Bilirubin Negative (Normal) Microscopic Examination See below: (Normal) Microscopic Examination MICRON (Normal) Comments: Microscopic follows if indicated. Nitrite, Urine Negative (Normal) Occult Blood Negative (Normal) Urobilinogen,Semi-Qn 0.2 mg/dL (Normal) Range: 0.0-1.9 Glucose Negative (Normal) Ketones Negative (Normal) Protein Negative (Normal) WBC Esterase Negative (Normal) Appearance Clear (Normal) pH 6.0 (Normal) Range: 5.0-7.5 Specific [place] 1.020 (Normal) Range: 1.005-1.030 Urine-Color Yellow (Normal) :55 MICROALBUMIN: CREATININE Comments: PATIENT WAS FASTINGPERFORMED BY: [employer] [id number] BY: SignicastTuba City Regional Health Care CorporationHjeflj8030 [facility] [id number] RATIO (82936) AND (39529) Microalb/Creat Ratio 7.1 {mg/g_creat} (Normal) Range: 0.0-30.0 Microalbumin, Urine 8.6 ug/mL (Normal) Range: 0.0-17.0 Creatinine, Urine 120.9 mg/dL (Normal) Range: 15.0-278.0 :55 METABOLIC PANEL, Comments: PATIENT WAS FASTINGPERFORMED BY: ID Quantique [address] [id number] BY: [facility] Regional HospitalCovacsisEdward Ville 0767870 [facility] [id number] COMPREHENSIVE (02349) ALT (SGPT) 24 [iU]/L (Normal) Range: 0-40 [...] Glucose, Serum 105 mg/dL (Abnormal) Range: 65-99 65-Mch-801984:55 LIPOPROTEIN, BLD, BY NMR Comments: PATIENT WAS FASTINGPERFORMED BY: Sarah ID Quantique Yjk9090 Lavelle ZambranoUNC Health Appalachian [id number] BY: PRATIMA [facility]6370 [facility] [id number] Information: [id number] (56830) Large VLDL-P 2.9 nmol/L (Abnormal) Comments: Small [...] 1599High 1600 - 2000Very high > 2000. 50-Mnm-943431:55 CBC WITH MANUAL DIFF Comments: PATIENT WAS FASTINGPERFORMED BY: Sarah [employer] Yoy5002 [facility] [id number] BY: PRATIMA [facility]Shyyrv5947 [facility] [id number] (87370) Baso (Absolute) 0.0 {x10E3/uL} (Normal) Range: 0.0-0.2 [...] KIDNEY DISEASE, STAGE IV (SEVERE) : Reviewed Radiation Control Specialist Letter Indication: CHRONIC KIDNEY DISEASE, STAGE IV (SEVERE) Diabetic autonomic neuropathy associated with type 2 diabetes mellitus : Follow up in 3 months Indication: Diabetic autonomic neuropathy associated with type 2 diabetes mellitus Chronic kidney disease, stage III (moderate) : Reviewed Radiation Control Specialist Letter Indication: Chronic kidney disease, stage [...] sequela Aspiration of food, sequela : Reviewed Radiation Control Specialist Letter- sibila and bronch Indication: Aspiration [...] Diagnostic Tests Indication: Sarcoidosis Sarcoidosis : Reviewed Radiation Control Specialist Letter Indication: Sarcoidosis DM (diabetes mellitus), type 1, uncontrolled, with renal complications : Follow up in 3 months Indication: DM (diabetes mellitus), type 1, uncontrolled, with renal complications DM (diabetes mellitus), type 1, uncontrolled, with renal complications : Reviewed Lab Indication: DM (diabetes mellitus), type 1, uncontrolled, with renal complications Asthma : Continue Current Prescription(s) Indication: Asthma Asthma : Reviewed Radiation Control Specialist Letter Indication: Asthma CHRONIC KIDNEY DISEASE, STAGE IV (SEVERE) : Reviewed Radiation Control Specialist Letter Indication: CHRONIC KIDNEY DISEASE, STAGE [...] GERD (gastroesophageal reflux disease) Asthma : Reviewed Radiation Control Specialist Letter Indication: Asthma Asthma : Continue Current Prescription(s) Indication: Asthma DM (diabetes mellitus), type 1, uncontrolled, with renal complications : Follow up in 3 months- do ekg Indication: DM (diabetes mellitus), type 1, uncontrolled, with renal complications Chronic kidney disease, stage III (moderate) : Reviewed Radiation Control Specialist Letter Indication: Chronic kidney disease, stage [...] typeII,controlled, renal comp Atrial fibrillation : Reviewed Radiation Control Specialist Letter Indication: Atrial fibrillation Hypercholesteremia : [...] Indication: Impacted fracture Impacted fracture : Reviewed Radiation Control Specialist Letter Indication: Impacted fracture Hypertension with [...] kidney disease, stage III (moderate) : Reviewed Radiation Control Specialist Letter- Dr Ribeiro Indication: Chronic kidney [...] kidney disease, stage III (moderate) : Reviewed Radiation Control Specialist Letter Indication: Chronic kidney disease, stage [...] kidney disease, stage III (moderate) : Reviewed Radiation Control Specialist Letter Indication: Chronic kidney disease, stage [...] kidney disease, stage III (moderate) : Reviewed Radiation Control Specialist Letter Indication: Chronic kidney disease, stage [...] kidney disease, stage III (moderate) : Reviewed Radiation Control Specialist Letter-- dr ribeiro Indication: Chronic kidney [...] kidney disease, stage III (moderate) : Reviewed Radiation Control Specialist Letter: Dr ribeiro Indication: Chronic kidney disease, stage III (moderate) Diabetes mellitus type II, controlled : *Diabetes Education Indication: Diabetes mellitus type II, controlled Hypercholesteremia : Cholesterol mgmt Indication: Hypercholesteremia Hypertension with renal disease : Diet, Exercise, and Wt loss Indication: Hypertension with renal disease Hypertension with renal disease : HTN/CAD Red Flags Indication: Hypertension with renal disease Aspiration pneumonia : Reviewed Radiation Control Specialist Letter Indication: Aspiration pneumonia Aspiration pneumonia [...] kidney disease, stage III (moderate) : Reviewed Radiation Control Specialist Letter Indication: Chronic kidney disease, stage [...] kidney disease, stage III (moderate) : Reviewed Radiation Control Specialist Letter- w/u in progress Indication: Chronic [...] reflux disease) Planned Observations METABOLIC PANEL, COMPREHENSIVE (96640)Indication: Medication monitoring encounter On: 6-Gyp-241332:10 Request Parathyroid Hormone-related Peptide (PTH-rP) (31759)Indication: Hypercalcemia On: :40 Request Comments: send copy dr ribeiro CALCIUM SERUM (80919)Indication: Hypercalcemia On: :40 Request Comments: send copy to dr ribeiro ELECTROLYTES, 24 HOUR URINE (10991)Indication: Hypercalcemia On: 1-Psx-476596:49 Request POTASSIUM SERUM (10882)Indication: Hypercalcemia On: 2-Zhs-406918:48 Request Parathyroid Hormone-related Peptide (PTH-rP) (62667)Indication: Hypercalcemia On: :48 Request CALCIUM SERUM (79505)Indication: Hypercalcemia On: 7-Ios-408547:48 Request CALCIUM URINE 84760 (02379)Indication: Hypercalcemia On: :06 Request Comments: 24 hr urine ELECTROLYTES, 24 HOUR URINE (08221)Indication: Hypercalcemia On: :06 Request FECAL OCCULT- Tubes sent home (13364)Indication: Encounter for screening for malignant neoplasm of colon (Renamed from Special screening for malignant neoplasms, colon) On: 21-Sof-301894:47 Request Lipid Panel (98555)Indication: Hypercholesteremia On: 1-Kpl-707701:02 Request CALCIFIDIOL (73070) VIT D 25Indication: FATIGUE On: 4-Tpv-093488:38 Request Folate (03800)Indication: FATIGUE On: 8-Cqj-944596:38 Request VITAMIN B-12 (CYANOCOBALAMIN) (69691)Indication: FATIGUE On: 8-Mek-079744:38 Request TSH (86836)Indication: FATIGUE On: :38 Request SED RATE ERYTHROCYTE (42483)Indication: FATIGUE On: :38 Request RHEUMATOID FACTOR-QUANT (08834)Indication: FATIGUE On: :38 Request METABOLIC PANEL, COMPREHENSIVE (33869)Indication: FATIGUE On: :38 Request C-REACTIVE PROTEIN (04270)Indication: FATIGUE On: :38 Request CBC (AUTO) (67032)Indication: FATIGUE On: :38 Request HEIDI (ANTINUCLEAR ANTIBODY) (90044)Indication: FATIGUE On: :38 Request CULTURE, SPUTUM (32355)Indication: Cough On: 1-Qsf-572364:08 Request Metabolic Panel, Comprehensive (82277)Indication: Diabetes mellitus type 2, uncontrolled, without complications On: 97-Gad-928311:21 Request FECAL OCCULT HGB ASSAY- tubes sent home (79820)Indication: Encounter for Medicare annual wellness exam On: 70-Aal-76712:58 Request CALCIFIDIOL (15556) VIT D 25Indication: Vitamin D deficiency On: 96-Pvo-64145:48 Request MAGNESIUM (69632)Indication: Hypomagnesemia On: 89-Zff-72890:47 Request URINE ALFONZO CULTURE (KAITLIN COL COUNT) (19903)Indication: Abdominal pain On: 00-Qyn-750734:37 Request Urinalysis, Office (94403)Indication: Abdominal pain On: 72-Dhx-906378:37 Request FECAL OCCULT HGB ASSAY- tubes sent home (16439)Indication: Encounter for Medicare annual wellness exam On: 95-Ujs-24555:56 Request Metabolic Panel, Basic (10814)Indication: Chronic kidney disease, stage III (moderate) On: 96-Bsw-214300:11 Request POTASSIUM SERUM (48577)Indication: Hypokalemia On: 07-Ebe-61460:13 Request TSH (06001)Indication: Diabetes mellitus type II, controlled On: 7-Pki-229789:01 Request URINALYSIS, W/ MICRO (53280)Indication: Diabetes mellitus type II, controlled On: 8-Pbr-965850:01 Request MICROALBUMIN: CREATININE RATIO (14199) AND (62292)Indication: Diabetes mellitus type II, controlled On: : Request METABOLIC PANEL, COMPREHENSIVE (37651)Indication: Diabetes mellitus type II, controlled On: : Request LIPID PANEL (56181)Indication: Diabetes mellitus type II, controlled On: Request CBC WITH MANUAL DIFF (11422)Indication: Diabetes mellitus type II, controlled On: Request LIPOPROTEIN, BLD, BY NMR (84332)Indication: Hypercholesteremia On: : Request LIPID PANEL (74471)Indication: Hypercholesteremia On: : Request Comments: do in 3 months HEPATIC FUNCTION PANEL (73777)Indication: Hypercholesteremia On: Request LIPID PANEL (28059)Indication: Hypertension, benign On: :33 Request Planned Encounters Medical; 3 Month FU - On: 08-Nov-2018 8:45 [facility] Veronica Oquendo DO, DO, Kathleen Planned Procedures Solu -Medrol Injection, 125 mg On: 18-Aug-2018 Intent (J2930)By: Kassandra Fortune CNP Flu Vaccine (Quadrivalent) 53931Mj: On: 09-Aug-2018 Intent Veronica Oquendo DO, DO, Comments: Lot #[id number]-L dltd, IMDose prefilled syringegiven by:ANTOINE Munoz reviewed and ABN signed Veronica ELECTROCARDIOGRAM, COMPLETE (ECG) On: 09-Aug-2018 Intent (16860)By: Veronica Oquendo DO Comments: nsr - RBBB - no t acute Veronica Oquendo DO FLSZ-OU-OXZF BEHAVIORAL COUNSELING On: 09-Apr-2018 Intent FOR OBESITY, 15 MINUTES (G0447)By: Veronica Oquendo DO, DO, Kathleen SCREENING DIGITAL TOMOSYNTHESIS OF On: 09-Apr-2018 Intent BREAST (21577)By: Veronica Oquendo DO, DO, Kathleen Solu- Medrol Injection, 125mg On: 01-Jan-2018 Intent (J2930)By: Veronica Oquendo DO Comments: 125mg - 1 [id number]/2020R hip, IMJoaquina Stanton, [employer] Veronica Oquendo DO CHEST XRAY, PA & LATERAL (14036)By: On: 23-Dec-2017 Intent Veronica Oquendo DO, DO, Kathleen CHEST XRAY, PA & LATERAL (12847)By: On: 22-Dec-2017 Intent Kelsea Lund Aerosol Treatment (68097)By: On: 22-Dec-2017 Intent Kelsea Lund Comments: Still has wheezing in right lobe after aerosol treatment. Aerosol Treatment (01768)By: Azra On: 25-Nov-2017 Veronica Pabon DO, DO, Kathleen Comments: more a/e less reactivity 0-no wheeze but still that Rub in RLL area Solu- Medrol Injection, 125mg On: 25-Nov-2017 Intent (J2930)By: Veronica Oquendo DO Comments: [id number], 1vialMLONG [employer] Veronica Oquendo DO Solu- Medrol Injection, 125mg On: 27-Oct-2017 Intent (J2930)By: Kelsea Lund Comments: solumedrol 125mg injectionlot: [id number]: 10/2019L GMpt tolerated wellAD [employer] Aerosol Treatment (94695)By: On: 27-Oct-2017 Intent Kelsea Lund Comments: expiratory wheeze after albuterol aerosol treatment. EKG (31157)By: Veronica Oquendo DO On: 14-Oct-2017 Intent Veronica Oquendo DO Comments: nsr no acute chg- RBBB Aerosol Treatment (64130)By: Azra On: 14-Aug-2017 Veronica Pabon DO, DO, Kathleen Comments: no noise and more a/e Solu- Medrol Injection, 125mg On: 14-Aug-2017 Intent (J2930)By: Veronica Oquendo DO Comments: lot [id number] mgright gmIMas, [employer] Veronica Oquendo DO Solu- Medrol Injection, 125mg On: 05-Aug-2017 Intent (J2930)By: Veronica Oquendo DO Comments: Lot:[id number]:11/17Dose:125mgRoute:imSite:r hipGiven By:MICHAEL signed Veronica Oquendo DO Flu Vaccine (Quadrivalent) 31748Vd: On: 28-Jul-2017 Intent Veronica Oquendo DO, DO, Kathleen ELECTROCARDIOGRAM, COMPLETE (ECG) On: 28-Jul-2017 Intent (45415)By: Veronica Oquendo DO, DO, Kathleen IV Needle placement (54991)By: On: 14-Jul-2017 Intent Kassandra Fortune CNP ORTHOSTATIC BLOOD PRESSURE On: 14-Jul-2017 Intent ASSESSMENT (65016)By: Kassandra Fortune CNP INFUSION, NORMAL SALINE SOLUTION , On: 14-Jul-2017 Intent 1000 CC (Special Coverage Instructions Apply. See MCM: 2049) (J7030)By: Kassandra Fortune CNP Solu -Medrol Injection, 125 mg On: 22-Jun-2017 Intent (J2930)By: Kelsea Lund Solu- Medrol Injection, 125mg On: 17-Apr-2017 Intent (J2930)By: Veronica Oquendo DO Comments: Lot:[id number]:04/2019Dose:125mgRoute:imSite:l armGiven By:NOE signed Veronica Oquendo DO DEXA SCAN AXIAL SKELETON (06790)By: On: 06-Apr-2017 Intent Veronica Oquendo DO, DO, Kathleen SCREENING DIGITAL TOMOSYNTHESIS OF On: 06-Apr-2017 Intent BREAST (12942)By: Veronica Oquendo DO, DO, Kathleen Flu Vaccine (Quadrivalent) 18843Jk: On: 20-Aug-2016 Intent Veronica Oquendo DO, DO, Comments: FLUlot: [id number]:05/29/17site:Lt deltoidroute:IMdose:.5mlVALENTINA MOBLEY Solu- Medrol Injection, 125mg On: 20-Aug-2016 Intent (J2930)By: Veronica Oquendo DO Comments: solumedrollot:[id number]:03/18site:lt glutroute:IMdose:125mgDVALENTINA Calderón DO, Kathleen Solu -Medrol Injection, 125 mg On: 13-Aug-2016 Intent (J2930)By: Kassandra Fortune CNP Comments: Lot:[id number]:02/2019Dose:125mgRoute:imSite:l hip Given By:NOE signed Aerosol Treatment (74552)By: Irma On: 13-Aug-2016 Intent Clarisse SCHWARZ Radiology - Shoulder - LeftBy: Devika On: 04-Jul-2016 Intent Kassandra LUU Radiology - Knee - LeftBy: Devika On: 04-Jul-2016 Intent Kassandra LUU Comments: send result to Dr. Delgadillo Toradol Injection, 30 mg (J1885)By: On: 04-Jul-2016 Intent Kassandra Fortune CNP Aerosol Treatment (36905)By: Azra On: 12-May-2016 Veronica Pabon DO, DO, Kathleen Comments: less cough and more a./e- no wheeze Solu- Medrol Injection, 125mg On: 12-May-2016 Intent (J2930)By: Veronica Oquendo DO Comments: lot: [id number]: 12/18site/route: RGM/IMamt: 2mLVIS signed when applicableChelsea, Veronica Gillis DO CT - Chest (IV Contrast Needed)By: On: 09-May-2016 Intent Veronica Oquendo DO, DO, Kathleen Radiology - Chest- PA and LatBy: On: 08-May-2016 Intent Veronica Oquendo DO, DO, Veronica PNEUM VAC ADLT/IMUMNOSPR, SBC/INTRM On: 21-Apr-2016 Intent (44978)By: Veronica Oquendo DO Comments: pneumovaxlot:[id number]:09/06/17site:lt deltroute:IMD.VALENTINA Dunlap DO, Kathleen MFXT-WZ-DLOP BEHAVIORAL COUNSELING On: 21-Apr-2016 Intent FOR OBESITY, 15 MINUTES (G0447)By: Veronica Oquendo DO, DO, Kathleen MAMMOGRAM, SCREENING, BOTH BREAST On: 21-Apr-2016 Intent (86577)By: Veronica Oquendo DO, DO, Kathleen Radiology - Knee - RightBy: Azra On: 14-Apr-2016 Intent Veronica JEAN-BAPTISTE DO, Kathleen Radiology - Knee - LeftBy: Azra On: 14-Apr-2016 Veronica Pabon DO, DO, Kathleen ADMINISTRATION OF INFLUENZA VIRUS On: 09-Aug-2015 Intent VACCINE (G0008)By: Veronica Oquendo DO, DO, Kathleen Flu Vaccine (Quadrivalent) 11660Su: On: 09-Aug-2015 Intent Veronica Oquendo DO, DO, Comments: Lot:[id number]:02/27/16Dose:0.5mLRoute:IMSite:L DltdGiven By:NOE signed Veronica Solu -Medrol Injection, 125 mg On: 03-Aug-2015 Intent (J2930)By: Veronica Oquendo DO Comments: Lot:[id number]:12/2017Dose:125mgRoute:imSite:l armGiven By:NOE signed Veronica Oquendo DO Aerosol Treatment (22813)By: Azra On: 03-Aug-2015 Veronica Pabon DO, DO, Kathleen Comments: more a/e after aerosol EKG (97246)By: Veronica Oquendo DO On: 19-Jul-2015 Veronica Wren DO Comments: ming botello -- no new twave chg when compared to old ones Aerosol Treatment (29723)By: Azra On: 30-Apr-2015 Intent , Veronica Jurado DO Radiology - Chest- PA and LatBy: On: 27-Apr-2015 Intent Veronica Oquendo DO, DO, Kathleen DEXA SCAN AXIAL SKELETON (13269)By: On: 17-Apr-2015 Intent Veronica Oquendo DO, DO, Kathleen INTENSIVE BEHAVIORAL THERAPY TO On: 17-Apr-2015 Intent REDUCE CARDIOVASCULAR DISEASE RISK, INDIVIDUAL, BBQD-UG-GXEF, ANNUAL, 15 MINUTES (G0446)By: Veronica Oquendo DO, DO, Kathleen XJSA-DY-ICVE BEHAVIORAL COUNSELING On: 17-Apr-2015 Intent FOR OBESITY, 15 MINUTES (G0447)By: Veronica Oquendo DO, DO, Kathleen MAMMOGRAM, SCREENING, BOTH BREAST On: 17-Apr-2015 Intent (25186)By: Veronica Oquendo DO, DO, Kathleen EKG (65605)By: Veronica Oquendo DO On: 16-Aug-2014 Intent Veronica Oquendo DO Comments: nsr nonspecif st and t wave chg old not new Radiology - Chest- PA and LatBy: On: 15-May-2014 Intent Azra DOVeronica Azra DO, Veronica Toradol Injection, 30 mg (J1885)By: On: 12-May-2014 Intent Kassandra Fortune CNP Comments: Lot:[id number]:10/30/15Dose:30mgRoute:imSite:r hipGiven By:NOE signed Eprescribed prescriptions (G8553)By: On: 01-May-2014 Intent Veronica Oquendo DO DO, Veronica MAMMOGRAM, SCREENING, BOTH BREASTS On: 18-Apr-2014 Intent (51530)By: Veronica Oquendo DOon DOVeronica [id number] BEHAVIORAL COUNSELING On: 18-Apr-2014 Intent FOR OBESITY, 15 MINUTES (G0447)By: Veroncia Oquendo DO Azra DO Veronica Eprescribed prescriptions (G8553)By: On: 11-Apr-2014 Intent Veronica Oquendo DO Azra DO, Veronica Pulse Oximetry ([id number])By: Azra JEAN-BAPTISTE, On: 11-Apr-2014 Intent Veronica Oquendo DO, Veronica Aerosol Treatment ([id number])By: Devika On: 27-Sep-2013 Intent BELL Dasia [id number] BEHAVIORAL COUNSELING On: 12-Sep-2013 Intent FOR OBESITY, 15 MINUTES ([id number])By: Veronica Oquendo DO Azra DO, Veronica MAMMOGRAM, SCREENING, BOTH BREASTS On: 12-Sep-2013 Intent ([id number])By: Kelsea Richards LPN DRAIN/INJECT MAJOR JOINT OR BURSA On: 24-Aug-2013 Intent ()By: Kelsea Richards LPN Comments: [id number] exp 08/13 DRAIN/INJECT MAJOR JOINT OR BURSA On: 24-Aug-2013 Intent ()By: Kelsea Richards LPN Comments: lt knee lot [id number] exp 08/13 DRAIN/INJECT MAJOR JOINT OR BURSA On: 18-Aug-2013 Intent ()By: Kelsea Richards LPN Comments: lt knee lot [id number] exp 07/13 DRAIN/INJECT MAJOR JOINT OR BURSA On: 18-Aug-2013 Intent ()By: Kelsea Richards LPN Comments: rt knee lot [id number] exp 07-13 FLU VAC, SPLIT, >3 YEARS, INTRAMUSC On: 10-Aug-2013 Intent ([id number])By: Veronica Oquendo DO Comments: lot [id number] 2013site/route L sabas, IMamt 0.5mlVIS and ABN signed when applicableSTARR Lui DO, Kathleen ADMINISTRATION OF INFLUENZA VIRUS On: 10-Aug-2013 Intent VACCINE ([id number])By: Sania Ritchie DRAIN/INJECT MAJOR JOINT OR BURSA On: 10-Aug-2013 Intent ()By: Kelsea Richards LPN Comments: euflexxa injection lt knee lot [id number] exp 07/13 DRAIN/INJECT MAJOR JOINT OR BURSA On: 10-Aug-2013 Intent ()By: Kelsea Richards LPN Comments: euflexxa injection rt knee lot [id number] exp 07/13 Solu- Medrol Injection, 125mg On: 03-Aug-2013 Intent ([id number])By: Veronica Oquendo DO Comments: injected over Left sciatic area - most tender spot marked - no bleed pt tolerated well -- 08/03/13 lot # Veronica Oquendo DO Eprescribed prescriptions ([id number])By: On: 03-Aug-2013 Intent Sania Ritchie Kenalog Injection, 10 mgm On: 21-Jul-2013 Intent ([id number])By: Veronica Oquendo DO Comments: used 40 mglot: [id number]: 02/11site/route: RGM/IMamt: 40VIS signed when applicableSTARR Lui DO, Kathleen Nuclear Stress Test/Stress On: 21-Jul-2013 Intent SPECT/AdenosineBy: Azra JEAN-BAPTISTE, Comments: needs adenosine - bc 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 Veronica Jurado DO Echo CompleteBy: Veronica Oquendo DO On: 21-Jul-2013 Intent Veronica Oquendo DO Spirometry ([id number])By: Azra JEAN-BAPTISTE, On: 21-Jul-2013 Intent Veronica Jurado DO Comments: mild obstruction EKG ([id number])By: Veronica Oquendo DO On: 21-Jul-2013 Intent Veronica Oquendo DO Comments: nsr no acute chg - t wave inversion ant septal leads - st depression in lateral precordial leads [id number] BEHAVIORAL COUNSELING On: 21-Jul-2013 Intent FOR OBESITY, [...] Intent ([id number])By: Kassandra Fortune CNP Comments: Lot: [id number]: 12/2015Amt: 125mgRoute: IMSite: RUOQ glutealGiven by: CHONG Canas EKG ([id number])By: Veronica Oquendo DO On: 11-Apr-2013 Intent Veronica Oquendo DO Comments: nsr no acute chg the same nonspecific st flattening in v1v2 are presnet on old ekg's Spirometry ([id number])By: Azra JEAN-BAPTISTE, On: 11-Apr-2013 Intent Veronica Jurado DO Comments: such poor technique cnt report a FEV Eprescribed prescriptions ([id number])By: On: 16-Sep-2012 Intent Kelsea Richards LPN FLU VAC, SPLIT, >3 YEARS, INTRAMUSC On: 02-Sep-2012 Intent ([id number])By: Veronica Oquendo DO Comments: Lot #[id number]-9/30/13Site-left deltoidgiven by: CHONG Patrick DO, Kathleen ADMINISTRATION OF INFLUENZA VIRUS On: 02-Sep-2012 Intent VACCINE ([id number])By: Veronica Oquendo DO, DO, Kathleen HVYP-YG-GHIN BEHAVIORAL COUNSELING On: 02-Sep-2012 Intent FOR OBESITY, 15 MINUTES ([id number])By: Veronica Oquendo DO, DO, Kathleen SPECIMEN HNDLNG/TRNSPRT, OFFC > LAB On: 04-Aug-2012 Intent ([id number])By: Suki Gutiérrez LPN MAMMOGRAM, SCREENING, BOTH BREASTS On: 28-Jul-2012 Intent ([id number])By: Veronica Oquendo DO, DO, Kathleen EKG ([id number])By: Veronica Oquendo DO On: 17-Jun-2012 Intent Veronica Oquendo DO Comments: nsr no acute chg Overnight Pulse Ox([id number])By: Mast On: 11-May-2012 Intent Suzy RUIZ Spirometry ([id number])By: Azra JEAN-BAPTISTE, On: 17-Mar-2012 Intent Veronica Jurado DO Comments: poor technique- stable -- FLU VAC, SPLIT, >3 YEARS, INTRAMUSC On: 01-Sep-2011 Intent ([id number])By: Kelsea Richards LPN Comments: given at health clinic not here Eprescribed prescriptions ([id number])By: On: 29-Jul-2011 Intent Kelsea Richards LPN Ultrasound - RenalBy: Devika LUU, On: 15-Jul-2011 Intent Dasia PNEUM VAC ADLT/IMUMNOSPR, SBC/INTRM On: 09-May-2011 Intent ([id number])By: Veronica Oquendo DO, DO, Kathleen IMMUNIZ ADMNIN, 1 VAC, SNGL/COMBO On: 09-May-2011 Intent ([id number])By: Veronica Oquendo DO, DO, Kathleen DXA, BONE DENSITY, AXIAL SKELETON On: 09-May-2011 Intent ([id number])By: Kelsea Richards LPN MAMMOGRAM, SCREENING, BOTH BREASTS On: 09-May-2011 Intent ([id number])By: Kelsea Richards LPN Clinical Breast Examination On: 09-May-2011 Intent (G0101)By: Kelsea Richards LPN TDAP VACCINE >7 IM ([id number])By: Azra On: 16-Apr-2011 Veronica Pabon DO, DO, Kathleen Comments: Lot #[id number]/24/13Site-right deltoidgiven by: Alisa Vee LPN PULMONARY STRESS TEST/SIMPLE On: 04-Mar-2011 Intent ([id number])By: Veronica Oquendo DO Comments: pt unable to complete fulol test due to shortess of breath. Pt completed 3 minutes of assessment. hh Veronica Oquendo DO EKG ([id number])By: Veronica Oquendo DO On: 03-Mar-2011 Intent Veronica Oquendo DO Comments: nsr no acute changes Pulse Oximetry ([id number])By: Devika LUU, On: 29-Jan-2011 Intent Kassandra Vargas Solu- Medrol Injection, 125mg On: 29-Jan-2011 Intent ([id number])By: Kassandra Fortune CNP Pulse Oximetry ([id number])By: Bernardo RN, On: 29-Jan-2011 Intent Suzy IMMUNIZ ADMNIN, 1 VAC, SNGL/COMBO On: 04-Sep-2010 Intent ([id number])By: Lisa Blood FLU VAC, SPLIT, >3 YEARS, INTRAMUSC On: 04-Sep-2010 Intent ([id number])By: Lisa Blood Comments: Lot:[id number]:02/2011Dose:0.5MLRoute:IMSite:left deltoidGiven by: VALENTINA Saleem CT - Chest (IV Contrast Needed)By: On: 20-Jun-2010 Intent Veronica Oquendo DO, DO, Kathleen Echo CompleteBy: Veronica Oquendo DO On: 20-Jun-2010 Intent Veronica Oquendo DO Radiology - ChestBy: Kassandra Fortune CNP On: 27-May-2010 Intent E Aerosol Treatment ([id number])By: Devika On: 27-May-2010 Kassandra Pabon CNP Pulse Oximetry ([id number])By: Devika LUU On: 27-May-2010 Intent Dasia Ultrasound - LiverBy: Azra JEAN-BAPTISTE, On: 07-Mar-2010 Intent Veronica Jurado DO Spirometry ([id number])By: Azra JEAN-BAPTISTE, On: 07-Mar-2010 Intent Veronica Jurado DO Comments: mild obstrucition EKG ([id number])By: Veronica Oquendo DO On: 14-Dec-2009 Intent Veronica Oquendo DO Comments: nsr poor R wave progression-- will request old ekg to compare Spirometry ([id number])By: Azra JEAN-BAPTISTE, On: 14-Dec-2009 Intent Veronica Jurado DO Comments: mild obstructive disease but some technique off Planned Medications INFUSION, NORMAL SALINE SOLUTION , 1000 CC Ordered: 14-Jul-2017 Pending [employer] NETWORK STRATEGIST, Dasia INJECTION, KETOROLAC TROMETHAMINE, PER 15 MG Ordered: 12-May-2014 Pending [employer] NETWORK STRATEGIST, Dasia INJECTION, KETOROLAC TROMETHAMINE, PER 15 MG Ordered: 04-Jul-2016 Pending [employer] NETWORK STRATEGIST, Dasia INJECTION, METHYLPREDNISOLONE SODIUM SUCCINATE, UP TO 125 MG Ordered: 29-Jan-2011 Pending [employer] NETWORK STRATEGIST, Dasia INJECTION, METHYLPREDNISOLONE SODIUM SUCCINATE, UP TO [...] TO 125 MG Ordered: 13-Aug-2016 Pending [employer]ies[employer] NETWORK STRATEGIST, Dasia INJECTION, METHYLPREDNISOLONE SODIUM SUCCINATE, UP TO [...] TO 125 MG Ordered: 03-Jun-2013 Pending [employer]ies[employer] NETWORK STRATEGIST, Dasia INJECTION, METHYLPREDNISOLONE SODIUM SUCCINATE, UP TO 125 MG Ordered: 01-Jan-2018 Pending Azra DO, Veronica Azra DO, Veronica INJECTION, METHYLPREDNISOLONE SODIUM SUCCINATE, UP TO 125 MG Ordered: 18-Aug-2018 Pending [employer] NETWORK STRATEGIST, Dasia INJECTION, TRIAMCINOLONE ACETONIDE, NOT OTHERWISE SPECIFIED, [...] foot : DISCONTINUED - RENAL FUNCTION PANEL ([id number]) Indication: Gout of right foot Gout of right foot : DISCONTINUED - URIC ACID BLOOD (01245) Indication: Gout of right foot Hypertension with renal disease : DISCONTINUED - MAGNESIUM ([id number]) Indication: Hypertension with renal disease Hypertension with renal disease : DISCONTINUED - POTASSIUM SERUM (20884) Indication: Hypertension with renal disease Diarrhea : [...] The patient does have durable power of ventilator specialist and living will. The patient has noticed nothing from the geriatic depression scale. Other providers contributing to the patient's care are respiratory physician, vertical roll operator, sanitary napkin machine tender and other:.Encounter Diagnosis: BMI 38.0-38.9,adult, Nonsmoker, Annual [...] The patient does have durable power of ventilator specialist and livin g will. The patient has noticed lack of energy. Other providers contributing to the patient's care are gastrologist, sanitary napkin machine tender and other: (pain management, podiatry).Encounter Diagnosis: Body [...] patient does not have durable power of ventilator specialist or living will. The patient has noticed nothing from the geriatic depression s angelica. Other providers contributing to the patient's care are sanitary napkin machine tender and other:.Encounter Diagnosis: Annual Medicare Phyiscal WITHOUT [...] patient does not have durable power of ventilator specialist or living will. The patient has noticed [...] care from a hospital (inhaled hamburger and albanian rice and she was in hosp from [...] providers contributing to the patient's care are vertical roll operator (margaret saravia), sanitary napkin machine tender (dr. hayes) and other: (dr. zincdr. leedr. [...] providers contributing to the patient's care are vertical roll operator (says has an appt with Dr Hammer this month at [facility] gastrologist (Michele), sanitary napkin machine tender (Dr Hayes) and urologist (Dr Mayes).Encounter Diagnosis: [...]
--- OUTSIDE RECORDS SUMMARY | 2018-12-08 05:39 | XMS RPT_ITS | Continuity of Care Document ---
:1950 Author Organization [facility] Address [address] [facility] [address] [place] [address] Phone Care Team Providers Name Role Phone [...] occurred s/p surgery - saw cardio in [place] had stress test and it was normal [...] after 2weeksdriving to see Dr Ribe[place] in [place] Status: Active CHRONIC OBSTRUCTIVE ASTHMA WITH (ACUTE) [...] DO, DO, Kathleen Start : 25-Aug-2018 Active [place] 5-325 MG Oral Tablet 1 (one) Tablet [...] DO, Kathleen Start : 25-Aug-2018 Active Pen [place] 3/16 31G X 5 MM Miscellaneous 1 [...] End : 10-Apr-2016 Inactive VITAMIN D (ERGOCALCIFEROL), [id number] (Oral Capsule) 1 (one) Capsule daily for [...] Discontinued Comments:Dispense mini needles CALCIUM + D, [phone] (PO Cap) 2 qd for 0 days [...] Visit Report Result: Comments: See Note; NOTES: [facility] Orthopaedics AND Sports Medicine [address] [place] [address] OFFICE VISIT Date of Service: 05/11/18 MR#: [id number] Acct: [id number] Name: SUGEY LING Rep #: [id number] : 1950 Provider: Tia Chirinos MD Age/Sex: 67/F [place] [facility] [place] [place] Status: Signed Intake Intake Visit Reasons: LOW [...] [History Confirmed 01/07/18] Fluticasone 0.05% [Flonase Nasal [place]] 1 spray NASAL DAILY 06/21/17 [History Confirmed 01/07/18] Fluticasone/Salmeterol [Advair 500/50 Mcg Diskus] 1 puff INHALATION BID 06/21/17 [History Confirmed 01/08/18] Furosemide [Lasix] 40 mg PO DAILY PRN PRN 06/21/17 [History Confirmed 01/07/18] Insulin Detemir [Levemir (BKC)] 24 units SC QHS 06/21/17 [History Con firmed 01/08/18] [place]-3S/Dha/Epa/Fish Oil [Fish Oil 1,200 mg Softgel] 1 ea PO DAILY 06/21/17 [History Confirmed 01/07/18] Pantoprazole Sodium [Protonix] 40 mg PO BID 06/21/17 [History Confirmed 8] Tiotropium Pratt [Spiriva Respimat] 2 puff IH DAILY 06/21/17 [History Confirmed 01/08/18] Tramadol HCl [Ultram] 50 mg PO BID 06/21/17 [History Confirmed 01/07/18] Albuterol Inhaler [Ventolin Hfa (S P)] 1 - 2 puff INHALATION Q4H PRN PRN 12/04/17 [History Confirmed 01/08/18] Sour Scott Extract [Tart Scott Extract] 1,000 mg PO DAILY 01/07/18 [History Confirmed 01/07/18] [facility] Social History Smoki ng Status: Former smoker [...] nothin g. 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 field interviewer who would not clear her for a [...] (CAD), BILAT Result: Comments: See Note; NOTES: [facility] Imaging Services [address] [place] [address] SCREENING MAMM (CAD), BILAT MR#: [id number] Acct: [id number] Name: SUGEY LING Rep #: [id number] : 1950 F 67 From: Anam Larios MD PCP: Veronica Oquendo DO Status: REG CLI Study: SCREENING MAMM (CAD), BILAT Date of Exam: 05/20/18 Exam# [id number] Ordering Dr: Veronica Oquendo O MAMMOGRAPHY - [...] delay biopsy of a clinically suspicious abnormality. [id number] Electronically Signed: Anam Larios MD at 7:57 EDT Tel [phone], Service jolly pport , CC: Veronica Oquendo DO Shutdown Planner: Signed 29-Jan-2018 Modified Barium Swallow Study Result: Comments: See Note; NOTES: [facility] Speech Pathology [address] [place] [address] Modified Barium Swallow Study MR#: [id number] Acct: [id number] Name: SUGEY LING Rep #: [id number] : 1950 67 From: Eliezer Duke M.A., CFY-CREDIT RISK REVIEW OFFICER PRIMARY / SECONDARY DIAGNOSIS: dysphagia (R13.10) REFERRING [...] Patien t inhaled pieces of hamburger and Danish rice. 04/26/2014 underwent bronchoscopy with bronchial lavage and foreign body removal after aspirating rice during intake of hamburger and Danish rice. 2017 CT/Chest revealed old granulomatous disease; no acute pulmonary abnormality; resolution of the right lower lobe infiltrate seen on the prior CT. 12/31/2017 CXR revealed cardiomegaly; pectus excavat um deformity; no acute abnormality is seen. 01/08/2018 underwent bronchoscopy with bronchial lavage and foreign body removal after aspirating rice during intake of [place] food with resulting pneumoniti s of both food and emesis with bronchospasm, documentation reveals history of esophageal strictures with plans for inventory clerk referral for possible esophageal dilatation. Patient reports [...] Thin liquids via cup (single sip): 1 [place] thickened liquids via cup (single sip) : 1 [place] thickened liquids via cup (single sip): 2 [place] thickened liquids via cup (single sip): 1 [...] l functioning, with workup currently underway via inventory clerk. Patient able to comprehend and express recommended [...] 1520 <Electronically signed by Eliezer Duke M.A., CFY-CREDIT RISK REVIEW OFFICER> Date Eliezer Duke M.A. CFY-CREDIT RISK REVIEW OFFICER Co-Signature Required for all Medicare patients Date/Time Co-Signature CC: 29-Jan-2018 Swallowing Function w/Video Result: Comments: See Note; NOTES: [facility] Imaging Services [address] [place] [address] Swallowing Function w/Video MR#: [id number] Acct: [id number] Name: SUGEY LING Rep #: [id number] : 1950 F 67 From: Anam Larios MD PCP: Veronica Oquendo DO Status: [facility] Study: Swallowing Function w/Video Date of Exam: 01/29/18 Exam# [id number] Ordering Dr: Isaías Stroud MD STUDY: SWALLOWING [...] Anam Larios MD at 14:25 EST Tel [phone], Service support , CC: Veronica Stroud Shutdown Planner: Signed 30-Dec-2017 Chest PA and Lateral Result: Comments: See Note; NOTES: [facility] Imaging Services [address] [place] [address] Chest PA and Lateral MR#: [id number] Acct: [id number] Name: SUGEY LING Rep #: [id number] : 1950 67 From: Anam Larios MD PCP: Veronica Oquendo DO Status: REG CLI Study: Chest PA and Lateral Date of Exam: 12/30/17 Exam# [id number] Ordering Dr: Octavio Delgado MD STUDY: X- [...] Anam Larios MD at 12:54 EST Tel [phone], Service support , CC: Veronica Oquendo DO; Octavio Delgado MD Shutdown Planner: Signed 22-Dec-2017 Chest PA and Lateral Result: Comments: See Note; NOTES: [facility] Imaging Services [address] [place] [address] Chest PA and Lateral MR#: [id number] Acct: [id number] Name: SUGEY LING Rep #: [id number] : 1950 F 67 From: Ronnie Bradford MD PCP: Veronica Oquendo DO Status: REG CLI Study: Chest PA and Lateral Date of Exam: 12/22/17 Exam# [id number] Ordering Dr: Kelsea Lund EMAIL ENGINEERJonathan STUDY: X-RAY C HEST REASON FOR EXAM: [...] vice support , CC: NAKIA Lund; Veronica Oqeundo DO Shutdown Planner: Signed 04-Dec-2017 Chest without Contrast Result: Comments: See Note; NOTES: [facility] Imaging Services [address] [place] [address] Chest without Contrast MR#: [id number] Acct: [id number] Name: SUGEY LING Rep #: [id number] : 1950 F 67 From: Rogelio Alston DO PCP: Veronica Oquendo DO Status: REG CLI Study: Chest without Contrast Date of Exam: 12/04/17 Exam# [id number] Ordering Dr: Octavio Delgado MD STUDY: CT [...] Rogelio Alston DO at 13:14 EST Tel [phone], Service support , CC: Veronica Oquendo DO; Octavio Delgado MD Shutdown Planner: Signed 17-Nov-2017 Emergency Department Summary Result: Comments: See Note; NOTES: [facility] Medical Records Department [address] [place] [address] Emergency Department Summary 11/16/17 1811 MR#: [id number] Acct: [id number] Name: SUGEY LING Rep #: [id number] : 1950 66 From: Lobito Lee MD PCP: Veronica Oquedno DO Status: DEP ER - ER Visit [...] a prednisone taper and sees a pul freezing room worker. I believe that she should continue her [...] Aspiration event This note was generated with Educanon dictation software. It may contain incorrect words, [...] problems, contact your Primary Care Provider. Call [facility] ([phone]) or report to the closest Emergency Room. Call 911 if necessary. 11/17/17 0054 <Electronically signed by Lobito Lee MD> Date Lobito Lee MD Cosigner Signature (If Indicated): Date CC: Veronica Oquendo DO 16-Nov-2017 Chest PA and Lateral Result: Comments: See Note; NOTES: [facility] Imaging Services [address] [place] [address] Chest PA and Lateral MR#: [id number] Acct: [id number] Name: SUGEY LING Rep #: [id number] : 1950 F 66 From: Ivone Guevara MD PCP: Veronica Oquendo DO Status: REG ER Study: Chest PA and Lateral Date of Exam: 11/16/17 Exam# [id number] Ordering Dr: Lobito Lee MD STUDY: X-RAY [...] Fax CC: Veronica Oquendo DO; Lobito Lee Shutdown Planner: Signed 09-Oct-2017 Chest PA and Lateral Result: Comments: See Note; NOTES: [facility] Imaging Services [address] [place] [address] Chest PA and Lateral MR#: [id number] Acct: [id number] Name: SUGEY LING Rep #: [id number] : 1950 F 66 From: Anam Larios MD PCP: Veronica Oquendo DO Status: REG CLI Study: Chest PA and Lateral Date of Exam: 10/09/17 Exam# [id number] Ordering Dr: Will Oliveira MD STUDY: X-RAY [...] Anam Larios MD at 15:14 EST Tel [phone], Service support , CC: Veronica Oquendo DO; Will Oliveira MD Shutdown Planner: Signed 15-Jul-2017 PT D/C Summary (1) Result: Comments: See Note; NOTES: [facility] Physical Therapy [facility] [address] [facility] [place] [address] Fax REHABILITATION SERVICES [facility] SUMMARY MR#: [id number] Acct: [id number] Name: SUGEY LING Rep #: [id number] : 1950 66 From: Nghia Willis PT, Cert. MDT, OCS Referring Dr.: Chetan Medina MD Status: REG RCR Insurance: M EDICARE PART A B WPS mcTEL FOR [place] HP - PT D/C Summary It has [...] feel free to yamilka l ks at [phone]. Thank you for the referral of this patient. Sincerely, Nghia Willis, PT, <Electronically signed by Nghia Willis PT, Cert. MDT, [facility]> 07/15/17816 CC: Chetan Medina MD; Veronica Oquendo DO WENCESLAO Signed 11-Jul-2017 Emergency Department Summary Result: Comments: See Note; NOTES: [facility] Medical Records Department [address] [place] [address] Emergency Department Summary 06/21/17 0738 MR#: [id number] Acct: [id number] Name: SUGEY LING Rep #: [id number] : 1950 66 From: Rufino Vela MD [...] ED Arthritis Gout Prescriptions: Hydrocodone Bitart/Apap 5-325 [[place] 5/325] 1 - 2 tablet PO Q4H PRN PRN #7 tablet PRN Reason: Pain Referrals: Veronica Oquendo, DO [Primary Care Provider] - What to do if you have Problems For any increased pain, shortness of breath, bleeding, na usea or vomiting, chest pain, or any unexpected problems, contact your Primary Care Provider. Call [facility] ([phone]) or report to the closest Emergency Room. Call 911 if necessary. 07/11 0903 <Electronically signed by Rufino Vela MD> Date Rufino Vela MD Cosigner Signature (If Indicated): Date CC: Veronica Oquendo DO 21-Jun-2017 Discharge Instruction Result: Comments: See Note; NOTES: [facility] Medical Records Department [address] [facility] [place] [address] Discharge Instruction 06/21/17 0740 MR#: [id number] Acct: [id number] Name: Sissy LING Rep #: [id number] : 1950 66 From: Rufino Vela MD PCP: Veronica Oquendo DO Status: REG ER ED Disposition - Plan for ED Patient: Chief Complaint: Lower Extremity Injury Instruction s: ED Arthritis Gout Prescriptions: Hydrocodone Bitart/Apap 5-325 [[place] 5/325] 1 - 2 tablet PO Q4H PRN PRN #7 tablet PRN Reason: Pain Referrals: Veronica Oquendo DO [Primary Care Provider] - What to do if you have Problems For any increased pain, shortness of breath, bleeding, nausea or vomiting, chest pain, or any unexpected problems, contact your Primary Care Provider. Call [facility] ([phone]) or report to the closest Emergency Room. Call 911 if necessary. 06/21/1742 <Electronically signed by Rufino Vela MD> Date Rufino Vela MD Cosigner Signature (If Indicated): Date CC: Veronica Oquendo DO 19-Jun-2017 Re-Evaluation - PT (1) Result: Comments: See Note; NOTES: [facility] Physical Therapy [facility] [address] [place] [address] Fax REEVALUATION / MEDICARE RECERTI VEL [place] 4d PHYSICAL THERAPY MR#: [id number] Acct: [id number] Name: SUGEY LING Rep #: [id number] : 1950 66 From: Nghia Wlilis PT, Cert. MDT, OCS Referring Dr.: Chetan [...] do not hesitate to contact me at [phone] by phone or if you have questions [...] Bending Views Result: Comments: See Note; NOTES: [facility] Imaging Services [address] [place] [address] Verdatony 4d L/S Spine Comp/w Bending Views MR#: [id number] Acct: [id number] Name: DAVE LING Rep #: [id number] : 1950 F 66 From: Ronnie Bradford MD PCP: Veronica Oquendo DO Status: REG CLI Study: L/S Spine Comp/w Bending Views Date of Exam: 06/09/17 Exam# [id number] Ordering Dr: Alicia Chirinos MD STUDY: X-RAY [...] CC: Tia Chirinos M.D.; Veronica Oquendo DO Shutdown Planner: Signed 26-May-2017 Re-Evaluation - PT (1) Result: Comments: See Note; NOTES: [facility] Physical Therapy [address] [place] [address] Fax [facility] MR#: [id number] Acct: [id number] Name: SUGEY LING Rep #: [id number] : 1950 66 From: Nghia Willis PT, [...] do not hesitate to contact me at [phone] by phone or if you have questions or concerns regardin g this new plan of care! Sincerely, Nghia Willis PT, <Electronically signed by Nghia Willsi PT, Cert. T, [facility]> 05/26/17 1440 CC: Chetan Medina MD; Veronica Oquendo DO DD: WENCESLAO Signed For Medicare only, by signing this I certify the plan of care. Physicians Signature Date 12-May-2017 Dexa Bone Density Study (HP) Result: Comments: See Note; NOTES: [facility] Imaging Services [address] [place] [address] Verdana 4d Dexa Bone Density Study (HP) MR#: [id number] Acct: [id number] Name: SUGEY LING Rep #: [id number] : 1950 F 66 From: Anam Larios MD PCP: Veronica Oquendo DO Status: REG CLI Study: Dexa Bone Density Study (HP) Date of Exam: 05/12/17 Exam# [id number] Ordering Dr: Veronica Bridges DO STUDY: DUAL [...] Anam Larios MD at 12:45 EDT Tel [phone], Service support , CC: Veronica Oquendo DO Shutdown Planner: Signed 12-May-2017 SCREENING MAMM (CAD), BILAT Result: Comments: See Note; NOTES: [facility] Imaging Services [address] [place] [address] Verdana 4d SCREENING MAMM (CAD), BILAT MR#: [id number] Acct: [id number] Name: SUGEY LING Rep #: [id number] : 1950 F 66 From: Royce Phipps MD PCP: Veronica Oquendo DO Status: REG CLI Study: SCREENING MAMM (CAD), BILAT Date of Exam: 05/12/17 Exam# [id number] Ordering Dr: Bren Oquendo DO MAMMOGRAPHY - [...] delay biopsy of a clinically suspicious abnormality. [id number] Electronically Signed: Royce Phipps MD at 13:24 EDT Tel , Service support [phone], CC: Veronica Oquendo DO Shutdown Planner: Signed 30-Apr-2017 Inital Evaluation (1) - PT Result: Comments: See Note; NOTES: [facility] Physical Therapy [facility] [facility] [address] [place] [address] Fax REHABILITATION SERVICES INITIAL EVALUATION MR#: [id number] Acct: [id number] Name: SUGEY LING Rep #: [id number] [...] bowel/bladder problems. Physical therapy went well in [place], she was able to walk again. Social: [...] to be FAXED BACK to us at [phone] for Medicare purposes. Please let me know [...] Lumbar (Routine) Result: Comments: See Note; NOTES: [facility] Imaging Services [address] [place] [address] Verdana 4d Spine Lumbar (Routine) MR#: [id number] Acct: [id number] Name: SUGEY LING Devin Rep #: [id number] : 1950 F 66 From: Ronnie Bradford MD PCP: Veronica Oquendo DO Status: REG CLI Study: Spine Lumbar (Routine) Date of Exam: 04/24/17 Exam# [id number] Ordering Dr: Chetan Medina MD UDY: MRI [...] CC: Chetan Medina MD; Veronica Oquendo DO Shutdown Planner: Signed 15-Apr-2017 Hips B/L min 2 views w/ Pelvis Result: Comments: See Note; NOTES: [facility] Imaging Services [address] [facility] [place] [address] Verdana 4d Hips B/L min 2 views w/ Pelvis MR#: [id number] Acct: [id number] Name: DAVE LING Rep #: [id number] : 1950 F 66 From: Jeremiah Ramos MD PCP: Veronica Oquendo DO Status: REG CLI Study: Hips B/L min 2 views w/ Pelvis Date of Exam: 04/15/17 Exam# [id number] Ordering Dr: Chetan Hubbard MD STUDY: X-RAY [...] CC: Chetan Medina MD; Veronica Oquendo DO Shutdown Planner: Signed 16-Jul-2016 Spirometry ([id number]) Result: 16-Jul-2016 ELECTROCARDIOGRAM, COMPLETE (ECG) (00905) Comments: no new chg cmpared to last ekg Result: [MEASUREMENTS ANALYSIS] Date of Test: 07/16/2016 11:05:02; Heart Rate: 69; ME Interval: 144; QRS: 104; QT Interval: 394; Corrected QT Interval (QTc): 409; P Wave [place]: 56; QRS Wave [place]: 55; T Wave [place] : 90; Blood Pressure: 122/78 [ECG DIAGNOSTIC STATEMENTS] Date of Test: 07/16/2016 11:05:02; Summary: Sinus Rhythm Low voltage in limb leads. - Negative T- waves -Possible Anterior ischemia. ABNORMAL 04-Jul-2016 Knee 4 or More Views Result: Comments: See Note; NOTES: [facility] Imaging Services [address] [place] [address] Verdana 4d Knee 4 or More Views MR#: [id number] Acct: [id number] Name: SUGEY LING Rep # : [id number] : 1950 F 65 From: Ivone Guevara MD PCP: Veronica Oquendo DO Status: REG CLI Study: Knee 4 or More Views Date of Exam: 07/04/16 Exam# [id number] Ordering Dr: Kassandra Fortune STUDY: X-RAY - [...] at 16:23 EDT Tel , Service support [phone], CC: Kassandra Fortune; Veronica Oquendo DO Shutdown Planner: Signed 03-Jun-2016 Emergency Department Summary Result: Comments: See Note; NOTES: [facility] Medical Records Department [address] [place] [address] Emergency Department Summary MR#: [id number] Acct: [id number] Name: SUGEY LING Rep #: [id number] : 1950 65 From: Ronaldo Verduzco MD [...] C: Veronica Reeder MD T: NTS JOB: [id number] 06/03/16 1307 <Electronically signed by Ronaldo eVrduzco MD> Date Ronaldo Verduzco MD Cosigner Signature (If Indicated): Date CC: Veronica Oquendo DO; Will Oliveira MD Date Dictated: 06/03/16 1232 Date Transcribed: 06/03/16 1232 Shutdown Planner: Signed 03-Jun-2016 Discharge Instruction Result: Comments: See Note; NOTES: [facility] Medical Records Department [address] [place] [address] Discharge Instruction 06/03/16 1230 MR#: [id number] Acct: [id number] Name: SUGEY LING Rep #: [id number] : 1950 65 From: Ronaldo Verduzco MD PCP: Veronica Oquendo DO Status: REG ER ED Disposition - Plan for ED Patient: Disposition: Home or Assisted Living [facility] Complaint: Fall Instructions: ED Fracture, Shoulder, [...] any unexpected problems, contact your doctor. Call [facility] ([phone]) or report to the closest Emergency Room. Call 911 if necessary. 06/03/16 1234 <El ectronically signed by Ronaldo Verduzco MD> Date Ronaldo Verduzco MD Cosigner Signature (If Indicated): Date CC: Veronica Oquendo DO 03-Jun-2016 Shoulder min 2 Views Result: Comments: See Note; NOTES: [facility] Imaging Services [address] [facility] [address] Verdana 4d Shoulder min 2 Views MR#: [id number] Acct: [id number] Name: SUGEY LING Rep #: [id number] : 1950 F 65 From: Anam Lariso MD PCP: Veronica Oquendo DO Status: REG ER Study: Shoulder min 2 Views Date of Exam: 06/03/16 Exam# [id number] Ordering Dr: Ronaldo Verduzco MD STUDY: X-RAY [...] Anam Larios MD at 12:42 EDT Tel [phone], Service support [phone], RAD/Shoulder min 2 Views IMPRESSION: I suspect a nondisplaced impacted fracture of the surgical neck of the humerus. Electronically Signed: Anam rinaldi MD at 12:42 EDT Tel [phone], Service support [phone], CC: Veronica Oquendo DO; Ronaldo Verduzco MD Shutdown Planner: Signed 13-May-2016 L/S Spine Min 4 Views Result: Comments: See Note; NOTES: [facility] Imaging Services [address] [place] [address] Verdana 4d L/S Spine Min 4 Views MR#: [id number] Acct: [id number] Name: SUGEY LING Rep #: [id number] : 1950 F 65 From: Anam Larios MD PCP: Veronica Oquendo DO Status: REG CLI Study: L/S Spine Min 4 Views Date of Exam: 05/13/16 Exam# [id number] Ordering Dr: Chetan Luo MD STUDY: X-RAY [...] Anam Larios MD at 8:31 EDT Tel [phone], Service support [phone], RAD/L/S Spine Min 4 Views IMPRESSION: Status post laminectomy and fusion at the L4-L5 and L5-S1 levels with prosthetic disc insertion. Grade 2 anterior listhesis of L5 on S1. Electron ically Signed: Anam Larios MD at 8:31 EDT Tel [phone], Service support [phone], CC: Chetan Medina MD; Veronica Oquendo DO Shutdown Planner: Signed 13-May-2016 Chest WITH Contrast Result: Comments: See Note; NOTES: [facility] Imaging Services [address] [place] [address] Verboise 4d Chest WITH Contrast MR#: [id number] Acct: [id number] Name: Sissy LING [facility] A Rep #: [id number] : 1950 F 65 From: Anam Larios MD PCP: Veronica Oquendo DO Status: REG CLI Study: Chest WITH Contrast Date of Exam: 05/13/16 Exam# [id number] Ordering Dr: Veronica Oquendo DO STUDY: CT [...] Anam Larios MD at 8:42 EDT Tel [phone], Service support , CC: Veronica Oquendo DO Shutdown Planner: Signed 09-May-2016 Bilat Scrn Digital AND CAD Result: Comments: See Note; NOTES: [facility] Imaging Services [address] [place] [address] Verdana 4d Bilat Scrn Digital AND CAD MR#: [id number] Acct: [id number] Name: SUGEY LING Rep #: [id number] : 1950 F 65 From: Anam Larios MD PCP: Veronica Oquendo DO Status: REG CLI Study: Bilat Scrn Digital AND CAD Date of Exam: 05/09/16 Exam# [id number] Order ing Dr: Veronica Oquendo DO MAMMOGRAPHY [...] delay biopsy of a clinically suspicious abnormality. [id number] Electronically Signed: Anam Larios MD at 10:46 EDT Tel [phone], Se rvice support [phone], CC: Veronica Oquendo DO Shutdown Planner: Signed 09-May-2016 Chest PA and Lateral Result: Comments: See Note; NOTES: [facility] Imaging Services [address] [place] [address] Verdana 4d Chest PA and Lateral MR#: [id number] Acct: [id number] Name: SUGEY LING Rep #: [id number] : 1950 F 65 From: Anam Lairos MD PCP: Veronica Oquendo DO Status: REG CLI Study: Chest PA and Lateral Date of Exam: 05/09/16 Exam# [id number] Ordering Dr: Veronica Davidson DO STUDY: X-RAY [...] Anam Larios MD at 9:41 EDT Tel [phone], Service support [phone], RAD/Chest PA and Lateral IMPRESSION: Focal area of increased markings in the right midlung. Followup is recommended. Electronically Signed: Anam Larios MD at 9:41 EDT Tel [phone], Service support [phone], CC: Veronica Oquendo DO Shutdown Planner: Signed 15-Apr-2016 Knee 4 or More Views Result: Comments: See Note; NOTES: [facility] Imaging Services [address] [place] [address] Verdana 4d Knee 4 or More Views MR#: [id number] Acct: [id number] Name: SUGEY LING Rep #: [id number] : 1950 F 65 From: Royce Phipps MD PCP: Veronica Oquendo DO Status: REG CLI Study: Knee 4 or More Views Date of Exam: 04/15/16 Exam# [id number] Ordering Dr: Tad Oquendo DO STUDY: X-RAY [...] 10:30 EDT Tel , Servic e support [phone], RAD/Knee 4 or More Views IMPRESSION: Degenerative arthrosis. Electronically Signed: Royce Phipps MD at 10:30 EDT Tel , Service support [phone], CC: Veronica Oquendo DO Shutdown Planner: Signed 15-Apr-2016 Knee 4 or More Views Result: Comments: See Note; NOTES: [facility] Imaging Services [address] [address] [address] Verdana 4d Knee 4 or More Views MR#: [id number] Acct: [id number] Name: SUGEY LING Rep #: [id number] : 1950 F 65 From: Royce Phipps MD PCP: Veronica Oquendo DO Status: REG CLI Study: Knee 4 or More Views Date of Exam: 04/15/16 Exam# [id number] Ordering Dr: Tad Oquendo DO STUDY: X-RAY [...] 10:39 EDT Tel , Ser vice support [phone], RAD/Knee 4 or More Views IMPRESSION: Degenerative arthrosis. Electronically Signed: Royce Phipps MD at 10:39 EDT Te l , Service support [phone], CC: Veronica Oquendo DO Shutdown Planner: Signed 30-Jul-2015 Spirometry (55652) Result: 19-Jul-2015 Spirometry (69490) Comments: mild obstruction - asx Result: 08-May-2015 Bilat Scrn Digital AND CAD Result: Comments: See Note; NOTES: [facility] Imaging Services [address] [place] [address] 78017 Breast Imaging Report MR#: [id number] Acct: [id number] Name: SUGEY LING Rep #: [id number] : 1950 F 64 From: Anam Larios MD PCP: Veronica Oquendo DO Status: REG CLI Study: Bilat Scrn Digital AND CAD Date of Exam: 05/08/15 Exam# [id number] Ordering Dr: Pippa Oquendo DO MAMMOGRAPHY - [...] Jj Larios MD at 10:50 EDT Tel [phone], Service support [phone], CC: Veronica Oquendo DO Shutdown Planner: Signed 08-May-2015 Dexa Bone Density Study (HP) Result: Comments: See Note; NOTES: [facility] Imaging Services [address] [place] [address] 63033 Bone Density Report MR#: [id number] Acct: [id number] Name: SUGEY LING Rep #: [id number] : 1950 F 64 From: Anam Larios MD PCP: Veronica Oquendo DO Status: REG CLI Study: Dexa Bone Density Study (HP) Date of Exam: 05/08/15 Exam# [id number] Ordering Dr: Pippa Oquendo DO STUDY: DUAL [...] Anam Larios MD at 15:32 EDT Tel [phone], Service support [phone], CC: Veronica Oquendo DO Shutdown Planner: Signed 27-Apr-2015 Chest PA and Lateral Result: Comments: See Note; NOTES: [facility] Imaging Services [address] [place] [address] 11720 Radiology Report MR#: [id number] Acct: [id number] Name: SUGEY LING Rep #: [id number] : 1950 F 64 From: Lilian Dominguez MD PCP: Veronica Oquendo DO Status: REG CLI Study: Chest PA and Lateral Date of Exam: 04/27/15 Exam# [id number] Ordering Dr: Veronica Oquendo DO STUDY : [...] MD at 22:33 EDT , Service support [phone], RAD/Chest PA and Lateral IMPRESSION: No acute cardiopulmonary findings or changes. Mild hyper expansion and stable mild chronic lung changes. Stigmata of prior granulomatous disease. Atherosclerosis. Demineralized osseous structures and dextroscoliosis. Electronically Signed: Lilian Dominguez MD at 22:33 EDT , Service support [phone], CC: Veronica Oquendo DO Shutdown Planner: Signed 31-May-2014 Foot min 3 Views Result: Comments: See Note; NOTES: [facility] Imaging Services [address] [place] [address] 77886 Radiology Report MR#: [id number] Acct: [id number] Name: SUGEY LING Rep #: [id number] : 1950 F 63 From: Celso Guerrero DO PCP: Veronica Oquendo DO Status: REG CLI Study: Foot min 3 Views Date of Exam: 05/31/14 Exam# [id number] Ordering Dr: Jade Benson MD STUDY: X-RAY [...] at 9:32 EDT Tel , Service support [phone], CC: Veronica Oquendo DO; Jade Benson MD Shutdown Planner: Signed 31-May-2014 Foot min 3 Views Result: Comments: See Note; NOTES: [facility] Imaging Services [address] [place] [address] Radiology Report MR#: [id number] Acct: [id number] Name: SUGEY LING Rep #: [id number] : 1950 F 63 From: Celso Guerrero DO PCP: Veronica Oquendo DO Status: REG CLI Study: Foot min 3 Views Date of Exam: 05/31/14 Exam# [id number] Ordering Dr: Jade Benson MD STUDY: X-RAY [...] DO at 9:34 EDT , Service support [phone], CC: Veronica Oquendo DO; Jade Benson MD Shutdown Planner: Signed 31-May-2014 Hand Min 3 Views Result: Comments: See Note; NOTES: [facility] Imaging Services [address] [place] [address] Radiology Report MR#: [id number] Acct: [id number] Name: SUGEY LING Rep #: [id number] : 1950 F 63 From: Celso Guerrero DO PCP: Veronica Oquendo DO Status: REG CLI Study: Hand Min 3 Views Date of Exam: 05/31/14 Exam# [id number] Ordering Dr: Jade Benson MD STUDY: X-RAY [...] DO at 9:42 EDT , Service support [phone], CC: Veronica Oquendo DO; Jade Benson MD Shutdown Planner: Signed 31-May-2014 Hand Min 3 Views Result: Comments: See Note; NOTES: [facility] Imaging Services [address] [place] [address] 03176 Radiology Report MR#: [id number] Acct: [id number] Name: SUGEY LING Rep #: [id number] : 1950 F 63 From: Celso Guerrero DO PCP: Veronica Oquendo DO Status: REG CLI Study: Hand Min 3 Views Date of Exam: 05/31/14 Exam# [id number] Ordering Dr: Jade Benson MD STUDY: X-RAY [...] at 9:43 EDT , Servic e support [phone], RAD/Hand Min 3 Views IMPRESSION: Osteopenia with degenerative changes. No acute fracture demonstrated. Electronically Signed: Ashok keith DO at 9:43 EDT , Service support [phone], CC: Veronica Oquendo DO; Jade Benson MD Shutdown Planner: Signed 19-May-2014 Chest PA and Lateral Result: Comments: See Note; NOTES: [facility] Imaging Services [facility] [place] [address] Radiology Report MR#: [id number] Acct: [id number] Name: SUGEY LING Rep #: [id number] : 1950 F 63 From: Marciano Fountain MD PCP: Status: REG CLI Study: Chest PA and Lateral Date of Exam: 05/19/14 Exam# [id number] Ordering Dr: Veronica Oquendo DO STUDY: X-RAY [...] MD at 5:44 EDT , Service support [phone], CC: Veronica Oquendo DO Shutdown Planner: Signed 18-Apr-2014 EKG (51350) Comments: nsr no acute chg Result: [MEASUREMENTS ANALYSIS] Date of Test: 04/18/2014 09:33:28; Heart Rate: 72; ME Interval: 148; QRS: 108; QT Interval: 392; Corrected QT Interval (QTc): 413; P Wave [place]: 63; QRS Wave [place]: 59; T Wave [place] : 66; Blood Pressure: 138/62 [ECG DIAGNOSTIC STATEMENTS] Date of Test: 04/18/2014 09:33:28; Summary: Sinus Rhythm Low voltage in limb leads. - Negative precordial T-waves. ABNORMAL 16-Sep-2013 Bilat Scrn Digital & CAD Result: Comments: See Note; NOTES: [facility] Imaging Services [address] [place] [address] Breast Imaging Report MR#: [id number] Acct: [id number] Name: SUGEY LING Rep #: [id number] : 1950 F 62 From: Anam Larios MD PCP: Veronica Oquendo DO Status: REG CLI Exam# [id number] Ordering Dr: Azra, Veronica DO MAMMOGRAPHY - [...] September 16, 2013 at 9:43:10 AM EDT [phone] Electronically Signed GP/GP If you are the referring physician and would like to consult with the radiologist who provided this interpretation, please contact Anam Webb i, M.D. at [phone]. If this radiologist is unavailable, you will be directed to another radiologist to assist. If you are a patient with a question regarding this report, please contact your re ferring physician directly. Professional Interpretation Provided By: [employer], Phone , These documents contain legally protected [...] of these documents. CC: Veronica Oquendo DO Shutdown Planner: Signed Family History Unknown Family Member Name [...] kg/m2 Body Surface Area Calculated 1.85 m2 27-Eqj-313504:51 Temperature 98.4 f Comments: Method: Tympanic Respiration [...] Surface Area Calculated 1.86 m2 :39 Comments: [facility] and had a glaucoma test [...] kg/m2 Body Surface Area Calculated 1.9 m2 92-Uas-708603:16 Pulse 84 /min Comments: Pattern: Regular Respiration [...] kg/m2 Body Surface Area Calculated 1.89 m2 22-Coc-425404:17 Comments: [facility] and had a glaucoma test [...] kg/m2 Body Surface Area Calculated 1.9 m2 87-Bej-765876:22 Pulse 79 /min Comments: Pattern: Regular Respiration [...] kg/m2 Body Surface Area Calculated 1.84 m2 28-Yun-823960:06 Pulse 64 /min Comments: Pattern: Regular Respiration [...] Description Value Details :59 URIC ACID BLOOD (49942) Comments: PATIENT NOT FASTINGPERFORMED BY: [facility] Qpcdta6381 [facility] [id number] Uric Acid 8.7 mg/dL (Abnormal) Range: 2.5-7.1 Comments: Therapeutic target for gout patients: <6.0 :34 HgA1C , Office (26571) HgA1C , Office 6.5 % (Normal) Range: 4.6 - 7.1 :33 Blood Glucose , Office (35977) Blood Glucose , Office 103 (Normal) 54-Maw-910639:32 Basic Metabolic Profile (BMP) Comments: [facility] [address] [place], [address] GAP 3 (Abnormal) Range: 5-15 CO2 31.0 [...] A.D.A. criteria.Please note revised GLUCOSE reference range yvqnhwzcw98/02/2018. :36 HgA1C , Office (62438) HgA1C , Office 6.6 % (Normal) Range: 4.6 - 7.1 :36 Blood Glucose , Office (08709) Blood Glucose , Office 186 (Normal) Comments: not fasting 8-Umr-113868:28 Miscellaneous Lab Procedure Comments: Comments: TRAMADOL URINE [id number](s) Ordered: URINE TOXICOLOGY [id number] RUN [facility] [address] [facility] [place], [address] [facility] Comments: [id number] 6+OXYCODONE-BUND (ng/mL)DRUG RESULT SCREEN CUTOFF____ Amphetamines,Urine Negat LAB (Normal) emy ng/mL 1000Amphetamine test includes Amphetamine and Methamphetamine.Barbiturates Negative ng/mL 200Benzodiazepines Negative ng/mL 200Cannabinoid TEST Negative ng/mL 20Cocaine (Metab) Negative ng/mL 300Opiates Negative ng/mL 300 Opiates test includes Codeine, Morphine, Hydromorphone, [place] codone.Oxycodone/Oxymorphone,Urine Negative ng/mL 300 Test includes Oxydodone and Oxymorphone. TESTING PERFORMED AT [facility]. ORIGINAL REPORT ON FILE IN LAB CONTAINS ADDITIONAL TEST SITE INFORMATION. 6-Vtb-593848:28 Miscellaneous Lab Procedure 2 Comments: Comments: TRAMADOL URINE [id number] Test(s) Ordered by Physician: URINE TOXICOLOGY [id number] RUN [facility] [address] [place], [id number] [facility] [place]: TEST RESULT LIMITSTramadol Positive Cutoff = 200 Tramadol GC/MS COnf 6050 ng/mL Cutoff = 100 LAB (Normal) TESTING PERFORMED AT [facility]. ORIGINAL REPORT ON FILE IN LAB CONTAINS ADDITIONAL TEST SITE INFORMATION. TEST 2 7-Swo-962996:28 Urine Drug Screen (VISTA) Comments: Comments: TRAMADOL URINE [id number] of Drugs Taken or Suspected? [facility] [address] [place], [place], [id number] THC NEGATIVE (Normal) PCP NEGATIVE (Normal) OPIATES [...] SEPARATELY. USE TESTMNEMONIC: [facility] 68-Kgs-468612:14 CBC-Complete Blood Cnt No Diff Comments: [facility] [address] [place], [phone](336) MPV 9.5 fL (Normal) Range: 6.2-12.0 PLT [...] 4.2-5.4 WBC 9.7 K/mm3 (Normal) Range: 4.4-11.0 35-Rhb-743993:14 Magnesium Comments: [facility] [address] [place], [address](150) MG 1.7 mg/dL (Normal) Range: 1.6-2.6 43-Tou-055130:14 Microalb:Creat Ratio,Random UR Comments: [facility] [address] [place], [address] MALB:CREAT 5.5 {mg/g_CRE} (Normal) MICROALBUMIN,UR 6.1 mg/L (Normal) UR CREAT 111.00 mg/dL (Normal) 50-Tba-112801:1 PTHIN 25.7 pg/mL (Normal) Comments: [address] [place], [id number] 4 Range: 18.4-80.1 Comments: Please Note: PTH INTACT METHOD AND REFERENCE RANGE CHANGEEffective 11/18/2017. 49-Cjl-022550:14 Renal Profile Comments: [facility] [address] [place], [address] CO2 27.0 mmol/L (Normal) Range: 21.0-32.0 CL [...] A.D.A. criteria.Please note revised GLUCOSE reference range ehqvmiuvw33/02/2018. 49-Qho-524211:14 Uric Acid Comments: [facility] [address] [place], [address] URIC 8.4 mg/dL (Abnormal) Range: 2.6-6.0 Comments: The drugs N-Acetylcysteine and Metamizole may falselydepress this assay. 18-Fhz-448065:14 Vitamin D,25 Hydroxy Comments: [facility] [address] [place], [id number] Vitamin D 25-OH 36.6 ng/mL (Normal) Range: 29.95-100.01 Comments: Vitamin D 25(OH) Status Range Deficiency <20 ng/mL (50nmol/L) Insuffciency 20 - 30 ng/mL (50 - 75 nmol/L) Sufficiency 30 - 100 ng/mL (75 - 250 nmol/L) Toxicity >100 ng/mL (>250 nmol/L) 03-Kvv-56742:27 HgA1C , Office (20500) HgA1C , Office 6.7 % (Normal) Range: 4.6 - 7.1 7-Dej-482165:13 Bedside Glucose Comments: [facility] [address] [place] [address] BEDSIDE GLU 132 mg/dL (Abnormal) Range: 70-110 Comments: MANAGEMENT OF PATIENT CARE PER NURSING PROTOCOL 08-Jan-20180:00 Culture, Bronch Aveolar Lavage Comments: [facility] [address] [place], [address] CUBRL See Note (Normal) Comments: List Antibiotics Last 48 Hours? .List Antibiotics to be Started? .Gram StainGram Stain No White Blood Cells No organisms seen Resp. CultureMixed normal respiratory hermelindo. No Haemophilus, Streptoc occus pneumoniae, beta-hemolytic Streptococcus or Staphylococcus aureus isolated. 54-Etm-845870:06 HgA1C , Office (87462) HgA1C , Office 8.2 % (Abnormal) Range: 4.6 - 7.1 12-Mmd-419352:06 Blood Glucose , Office (56436) Blood Glucose , Office 168 (Normal) 09-Oaz-920096:00 Culture, Fungus 8482 Comments: [place] [address] [place], [address] CUF See Note Comments: PER ORDER, SPUTUM SMEAR/CULTURE FUNGAS Cu,Clgatw6915 TESTING PERFORMED AT [facility]. ORIGINAL REPORT ON FILE IN LAB CONTAINS NEO TIONAL TEST (Normal) SITE INFORMATION. CUF Positive Fungus Culture ORGANISM 1: Yana albicansAmount Growth Growth 82-Siu-749650:00 Culture, Sputum Comments: [facility] [address] [place], [place], [phone] CUSP See Note (Normal) Comments: PER ORDER, SPUTUM SMEAR/CULTURE FUNGAS Gram StainAcceptable Specimen? Yes (<25 Epithelial cells per/lpf) Gram Stain 1+ White Blood Cells 1+ Epithelial cells 1+ Gram positive cocci Resp. CultureMixed normal respiratory hermelindo. No Haemophilus, Streptococcus pneumoniae, beta-hemolytic Streptococcus or Staphylococcus aureus isolated. 72-Fxo-070217:49 BNP,B-Type NATRIURETIC PEPTIDE Comments: [facility] [address] [place], [address] B-TYPE EB PEP 41.7 pg/mL (Normal) Range: 0-100 83-Kqr-701165:30 Rapid Flu (81825 x 2) Influenza A Ag neg (Normal) 8-Vnj-351770:14 Bedside Glucose Comments: [facility] [address] [place] [address] BEDSIDE GLU 151 mg/dL (Abnormal) Range: 70-110 Comments: MANAGEMENT OF PATIENT CARE PER NURSING PROTOCOL 07-Dec-20170:00 Culture, Bronch Aveolar Lavage Comments: [facility] [address] [place], [address] CUBRL See Note (Normal) Comments: [...] $ <=20 S(NF) indicates non-formulary drug at [facility]. Approval by Infectious Disease Specialist required before non-formulary drugs may be ordered and/or dispensed. 7-Jsy-969992:27 CBC-Complete Blood Cnt No Diff Comments: [facility] [address] [place], [place], [address] MPV 10.0 fL (Normal) Range: 6.2-12.0 PLT [...] 4.2-5.4 WBC 14.0 K/mm3 (Abnormal) Range: 4.4-11.0 1-Rbq-262100:27 Hemoglobin A1c Comments: [facility] [address] [place], [place], [address] HGB A1C 7.9 % (Abnormal) Range: 4.2-6.3 1-Zoa-206268:27 Magnesium Comments: [facility] [address] [place], [place], [address] MG 1.9 mg/dL (Normal) Range: 1.8-2.4 9-Hrt-067749:27 Microalb:Creat Ratio,Random UR Comments: [facility] [address] [place], [place], [address] MALB:CREAT 12.0 {mg/g_CRE} (Normal) MICROALBUMIN,UR 11.1 mg/L (Normal) UR CREAT 92.40 mg/dL (Normal) 4-Wwz-344221:27 PTHIN 83.3 pg/mL (Abnormal) Comments: [facility] [address] [place], [phone] Range: 18.4-80.1 Comments: Please Note: PTH INTACT METHOD AND REFERENCE RANGE CHANGEEffective 11/18/2017. 7-Aez-271400:27 Renal Profile Comments: [facility] [address] [place], [address] CO2 24.0 mmol/L (Normal) Range: 21.0-32.0 CL [...] 200 mg/dLsuggests DIABETES MELLITUS per A.D.A. criteria. 8-Zom-978089:27 Uric Acid Comments: [facility] [address] [place], [phone] URIC 9.0 mg/dL (Abnormal) Range: 2.6-6.0 Comments: The drugs N-Acetylcysteine and Metamizole may falselydepress this assay. 1-Tpt-533526:27 Vitamin D,25 Hydroxy Comments: [facility] [address] [place], [address] Vitamin D 25-OH 34.1 ng/mL (Normal) Comments: Vitamin D 25(OH) Status Range Deficiency <20 ng/mL (50nmol/L) Insuffciency 20 - 30 ng/mL (50 - 75 nmol/L) Sufficiency 30 - 100 ng/mL (75 - 250 nmol/L) Toxicity >100 ng/mL (>250 nmol/L) 05-Bhe-69336:22 THROAT CULTURE (07824) Comments: PATIENT NOT FASTINGPERFORMED BY: [employer] [facility]Kind[facility] at WayneOyteip8596 [facility] [id number] Information: SRC:TH Result 1 RRF (Normal) Comments: Routine respiratory hermelindo Upper Respiratory Culture Final report (Normal) 88-Ifh-081493:09 Rapid Flu (16770 x 2) Comments: Negative Influenza A Ag negative (Normal) 92-Hzz-978144:09 Rapid Strep Test, Office (55682) Comments: Negative Rapid Strep Test, Office Negative (Normal) 65-Nke-216186:52 Microscopic Examination Comments: PATIENT WAS FASTINGPERFORMED BY: [facility] Jrkusx4792 [facility] [id number] Bacteria None seen (Normal) Mucus Threads Present (Normal) Epithelial Cells (non renal) 0-10 {/hpf} (Normal) Range: 0 - 10 RBC 0-2 {/hpf} (Normal) Range: 0 - 2 WBC 0-5 {/hpf} (Normal) Range: 0 - 5 88-Pko-101722:08 Magnesium Comments: [facility] [address] [place], [phone] MG 1.9 mg/dL (Normal) Range: 1.8-2.4 95-Uqi-726207:08 Microalb:Creat Ratio,Random UR Comments: [facility] [address] [place], [address] MALB:CREAT 8.5 {mg/g_CRE} (Normal) MICROALBUMIN,UR 5.2 mg/L (Normal) UR CREAT 61.10 mg/dL (Normal) :08 PTH,INTACT Comments: [facility] [address] [place], [address] PTH,Intact 40 pg/mL (Normal) Range: 14-72 :08 Renal Profile Comments: [facility] [address] [place], [address] CO2 23.0 mmol/L (Normal) Range: 21.0-32.0 CL [...] per A.D.A. criteria. :08 Uric Acid Comments: [facility] [address] [place], [address] URIC 8.0 mg/dL (Abnormal) Range: 2.6-6.0 Comments: The drugs N-Acetylcysteine and Metamizole may falselydepress this assay. :08 Vitamin D,25 Hydroxy Comments: [facility] [address] [place], [address] Vitamin D 25-OH 27.6 ng/mL (Normal) Comments: Vitamin D 25(OH) Status Range Deficiency <20 ng/mL (50nmol/L) Insuffciency 20 - 30 ng/mL (50 - 75 nmol/L) Sufficiency 30 - 100 ng/mL (75 - 250 nmol/L) Toxicity >100 ng/mL (>250 nmol/L) :52 URINALYSIS, W/ MICRO (38895) Comments: PATIENT WAS FASTINGPERFORMED BY: [employer] [facility] [id number] Microscopic Examination See below: (Normal) Comments: Microscopic was indicated and was performed. Nitrite, Urine Negative (Normal) Urobilinogen,Semi-Qn 0.2 mg/dL (Normal) Range: 0.2-1.0 Bilirubin Negative (Normal) Occult Blood Negative (Normal) Ketones Negative (Normal) Glucose 1+ (Abnormal) Protein Negative (Normal) WBC Esterase 1+ (Abnormal) Appearance Clear (Normal) Urine-Color Yellow (Normal) pH 6.5 (Normal) Range: 5.0-7.5 Specific [place] 1.023 (Normal) Range: 1.005-1.030 01-Jmw-100643:52 MICROALBUMIN: CREATININE RATIO Comments: PATIENT WAS FASTINGPERFORMED BY: [employer] [facility] [id number] (10577) AND (44459) Microalb/Creat Ratio 7.6 {mg/g_creat} (Normal) Range: 0.0-30.0 Microalbumin, Urine 6.8 ug/mL (Normal) Creatinine, Urine 89.4 mg/dL (Normal) 84-Nmp-879088:52 METABOLIC PANEL, COMPREHENSIVE Comments: PATIENT WAS FASTINGPERFORMED BY: [employer] AG70 [facility] [id number] (32390) ALT (SGPT) 22 [iU]/L (Normal) Range: 0-32 [...] Glucose, Serum 99 mg/dL (Normal) Range: 65-99 15-Zic-250612:52 CBC W/AUTO DIFF WBC (06036) Comments: PATIENT WAS FASTINGPERFORMED BY: [facility]CoKindred Hospital at WayneSazjnt6144 [facility] [id number] Immature Grans (Abs) 0.0 {x10E3/uL} (Normal) Range: [...] 3.77-5.28 WBC 13.0 {x10E3/uL} (Abnormal) Range: 3.4-10.8 44-Scg-836568:52 LIPID PANEL (45902) Comments: PATIENT WAS FASTINGPERFORMED BY: [facility] Aagvli9554 [facility] [id number] LDL/HDL Ratio 1.8 {ratio_units} (Normal) Range: 0.0-3.2 Comments: LDL/HDL Ratio Men Women 1/2 Avg.Risk 1.0 1.5 Av g.Risk 3.6 3.2 2X Avg.Risk 6.2 5.0 3X Avg.Risk 8.0 6.1 LDL Cholesterol Calc 75 mg/dL (Normal) Range: 0-99 VLDL Cholesterol Yamilka 42 mg/dL (Abnormal) Range: 5-40 HDL Cholesterol 41 mg/dL (Normal) Triglycerides 211 mg/dL (Abnormal) Range: 0-149 Cholesterol, Total 158 mg/dL (Normal) Range: 100-199 18-Nem-553969:52 TSH (38424) Comments: PATIENT WAS FASTINGPERFORMED BY: [facility] Qufehg2560 [facility] [id number] TSH 1.390 {uIU/mL} (Normal) Range: 0.450-4.500 97-Hpw-613956:52 CALCIFEDIOL (09466) Comments: PATIENT WAS FASTINGPERFORMED BY: [facility] Azmgnp5571 [facility] [id number] Vitamin D, 25-Hydroxy 38.5 ng/mL (Normal) Range: 30.0-100.0 Comments: Vitamin D deficiency has been defined by the [place] of[place] and an Endocrine Society practice guideline as alevel of serum 25-OH vitamin D less than 20 ng/mL (1,2).The Endocrine Society went on to further define vitamin Dinsufficiency as a level between 21 and 29 ng/mL (2).1. IOM ([place] of [employer]). 2010. Dietary reference intakes for calcium and D. [place]: The National Academies Press.2. Stephon MF, Ana ROY, Alka ROMERO, et al. Evaluation, treatment, and prevention of vitamin D deficiency: an Endocrine Society clinical practice guideline. JCEM. 2010; 96(7):1911-30. :32 HgA1C , Office (61446) HgA1C , Office 8.1 % (Abnormal) Range: 4.6 - 7.1 :32 Blood Glucose , Office (84615) Blood Glucose , Office 122 (Normal) :37 Immature Cells Comments: PATIENT WAS FASTINGPERFORMED BY: [employer] [address] [place] [id number] Myelocytes 1 % (Abnormal) Range: 0 - 0 Metamyelocytes 3 % (Abnormal) Range: 0 - 0 :16 PHOSPHORUS (86227) Comments: PATIENT WAS FASTINGPERFORMED BY: [employer] [address]kt024[address] Wu RoadDublin [place] [id number] Phosphorus, Serum 2.8 mg/dL (Normal) Range: 2.5-4.5 :16 MAGNESIUM (61603) Comments: PATIENT WAS FASTINGPERFORMED BY: [employer] [address] Service2MediaDublin [place] [id number] Magnesium, Serum 1.8 mg/dL (Normal) Range: 1.6-2.3 :16 METABOLIC PANEL, COMPREHENSIVE Comments: PATIENT WAS FASTINGPERFORMED BY: [employer] AG70 [address] [place] [id number] (12150) ALT (SGPT) 29 [iU]/L (Normal) Range: 0-32 [...] DIR SMEAR Comments: PATIENT NOT FASTINGPERFORMED BY: [facility] [id number] (44128) Result 1 NOCP (Normal) Comments: No ova, cysts, or parasites seen. Ova + Parasite Exam Final report (Normal) Comments: These results were obtained using wet preparation(s) and trichromestained smear. This test does not include testing for Cryptosporidiumparvum, Cyclospora, or Microsporidia. :34 OCCULT BLOOD FECES SCREEN Comments: PATIENT NOT FASTINGPERFORMED BY: [employer] Tqxetd4781 [facility] [id number] (64917) Occult Blood, Fecal, IA Negative (Normal) :34 LEUKOCYTE COUNT, FECAL (07525) Comments: PATIENT NOT FASTINGPERFORMED BY: [employer] [facility] [address] [place] [id number] Result 1 NWBC (Normal) Comments: No white blood cells seen. White Blood Cells (WBC), Final report (Normal) Stool :34 C-DIFFICILE, STOOL (11527) Comments: PATIENT NOT FASTINGPERFORMED BY: CB [facility] Ehnsmo[address] [place] [id number] C difficile Toxins A+B, EIA Negative (Normal) :34 ALFONZO CULTURE-STOOL (37996) Comments: PATIENT NOT FASTINGPERFORMED BY: [employer] [facility] Fbzmsv9016 [address] DotBets[facility] [id number] Information: SRC:ST SRC:ST E coli Shiga Toxin EIA Negative (Normal) Result 1 NCI (Normal) Comments: No Campylobacter species isolated. Campylobacter Culture Final report (Normal) Result 1 NSS (Normal) Comments: No Salmonella or Shigella recovered. Salmonella/Shigella Screen Final report (Normal) 46-Ziq-429923:56 Metabolic Panel, Comprehensive Comments: PATIENT NOT FASTINGPERFORMED BY: [employer] Qtczjq3090 [facility] [id number] (56688) ALT (SGPT) 26 [iU]/L (Normal) Range: 0-32 [...] Glucose, Serum 147 mg/dL (Abnormal) Range: 65-99 98-Xei-851192:56 CBC, Platelets & Auto Diff Comments: PATIENT NOT FASTINGPERFORMED BY: LabCoKindred Hospital at WayneGdrnrt4578 [facility] [id number] ([id number]) Immature Grans (Abs) 0.1 {x10E3/uL} (Normal) Range: [...] (Normal) Range: 3.4-10.8 :37 URIC ACID BLOOD (28433) Comments: PATIENT WAS FASTINGPERFORMED BY: [facility]6370 [facility] [id number] Uric Acid, Serum 9.1 mg/dL (Abnormal) Range: 2.5-7.1 Comments: Therapeutic target for gout patients: <6.0 :10 METABOLIC PANEL, COMPREHENSIVE (92407) :37 CBC W/AUTO DIFF WBC (77440) Comments: PATIENT WAS FASTINGPERFORMED BY: [facility]6370 [facility] [id number] Hematology Comments: Note: (Normal) Comments: Manual differential [...] 3.77-5.28 WBC 9.4 {x10E3/uL} (Normal) Range: 3.4-10.8 42-Lsq-117095:58 Magnesium Comments: [facility] [address] [place], [address] MG 2.0 mg/dL (Normal) Range: 1.8-2.4 Comments: Slight Hemolysis, Result may be falsely increased. 16-Hmu-483567:58 Renal Profile Comments: [facility] [address] [place], [address] CO2 27.0 mmol/L (Normal) Range: 21.0-32.0 CL [...] per A.D.A. criteria. :45 URIC ACID BLOOD (91651) Comments: PATIENT NOT FASTINGPERFORMED BY: [facility]CoKindred Hospital at WayneXyzapi2781 [facility] [id number] Uric Acid, Serum 9.6 mg/dL (Abnormal) Range: 2.5-7.1 Comments: Therapeutic target for gout patients: <6.0 :45 RENAL FUNCTION PANEL (66733) Comments: PATIENT NOT FASTINGPERFORMED BY: ComVibeKindred Hospital at WayneMvtcfx3568 [facility] [id number] Albumin, Serum 4.5 g/dL (Normal) Range: 3.6-4.8 [...] 214 mg/dL (Abnormal) Range: 65-99 :24 CALCIFIDIOL (86581) VIT D 25 Comments: PATIENT WAS FASTINGPERFORMED BY: LabCoKindred Hospital at WayneDdghrl7229 [facility] [id number] Vitamin D, 25-Hydroxy 44.9 ng/mL (Normal) Range: 30.0-100.0 Comments: Vitamin D deficiency has been defined by the [place] ofMedicine and an Endocrine Society practice guideline as alevel of serum 25-OH vitamin D less than 20 ng/mL (1,2).The Endocrine Society went on to further define vitamin Dinsufficiency as a level between 21 and 29 ng/mL (2).1. IOM ([place] of Medicine). 2010. Dietary reference intakes for calcium and D. [place]: The National Academies Press.2. Stephon MF, Ana [place], Alka ROMERO, et al. Evaluation, treatment, and prevention of vitamin D deficiency: an Endocrine Society clinical practice guideline. JCEM. 2010; 96(7):1911-30. :39 HgA1C , Office (53891) HgA1C , Office 7.6 % (Abnormal) Range: 4.6 - 7.1 :39 Blood Glucose , Office (75180) Blood Glucose , Office 174 (Normal) :56 TSH (61504) Comments: PATIENT WAS FASTINGPERFORMED BY: [facility]Core[facility]6370 [facility] [id number] TSH 2.180 {uIU/mL} (Normal) Range: 0.450-4.500 :56 LIPID PANEL (05367) Comments: PATIENT WAS FASTINGPERFORMED BY: [facility]Core[facility]6370 [facility] [id number] LDL/HDL Ratio 1.8 {ratio_units} (Normal) Range: 0.0-3.2 [...] Range: 100-199 :36 CBC W/Diff, Automated Comments: [facility] [address] [place], [place], [id number] Absolute Lymph 1.31 {X10_3/ul} (Normal) Range: 0.83-4.51 [...] 4.2-5.4 WBC 10.5 K/mm3 (Normal) Range: 4.4-11.0 0-Fml-917902:36 Magnesium Comments: [facility] [address] [place], [phone] MG 1.9 mg/dL (Normal) Range: 1.8-2.4 7-Phl-651881:36 Protein+Creatinine Ratio,Urine Comments: [facility] [address] [place], [address] PROT:CRE RATIO 120 {mg/g_CRE} (Normal) Range: 0-200 PROTEIN,UR.RAN. 13.6 mg/dL (Abnormal) UR CREAT 113.00 mg/dL (Normal) 1-Jfn-054048:36 PTH,INTACT Comments: [facility] [address] [place], [phone] PTH,Intact 27 pg/mL (Normal) Range: 14-72 1-Xni-399402:36 Renal Profile Comments: [facility] [address] [place], [id number] CO2 27.0 mmol/L (Normal) Range: 21.0-32.0 CL [...] per A.D.A. criteria. :36 Uric Acid Comments: [facility] [address] [place], [place], [id number] URIC 7.5 mg/dL (Abnormal) Range: 2.6-6.0 Comments: The drugs N-Acetylcysteine and Metamizole may falsely deressthis assay. 4-Jvt-378021:36 Vitamin D,25 Hydroxy Comments: [facility] [address] [place], [place], [phone] Vitamin D 25-OH 33.9 ng/mL (Normal) Comments: Vitamin D 25(OH) Status Range Deficiency <20 ng/mL (50nmol/L) Insuffciency 20 - 30 ng/mL (50 - 75 nmol/L) Sufficiency 30 - 100 ng/mL (75 - 250 nmol/L) Toxicity >100 ng/mL (>250 nmol/L) :24 Renal Profile Comments: [facility] X[address]wd[address] [facility], [address] CO2 24.0 mmol/L (Normal) Range: 21.0-32.0 CL [...] Immature Cells Comments: PATIENT WAS FASTINGPERFORMED BY: [employer]6370 [facility] [id number] Myelocytes 4 % (Abnormal) Range: 0 - 0 :46 Microscopic Examination Comments: PATIENT WAS FASTINGPERFORMED BY: [employer]6370 [facility] [id number] Bacteria Few (Normal) Mucus Threads Present (Normal) Crystal Type Calcium Oxalate (Normal) Crystals Present (Abnormal) Epithelial Cells (non renal) 0-10 {/hpf} (Normal) Range: 0 - 10 RBC 3-10 {/hpf} (Abnormal) Range: 0 - 2 WBC 11-30 {/hpf} (Abnormal) Range: 0 - 5 :47 Sputum Culture (41912) Comments: PATIENT NOT FASTINGPERFORMED BY: [employer] [facility] [id number] Information: SRC:SP Result 1 RRF (Normal) Comments: Routine respiratory hermelindo Lower Respiratory Culture Final report (Normal) :46 CALCIFEDIOL (27835) Comments: PATIENT WAS FASTINGPERFORMED BY: ComVibeKindred Hospital at WayneRyrfzm1521 [facility] [id number] Vitamin D, 25-Hydroxy 32.4 ng/mL (Normal) Range: 30.0-100.0 Comments: Vitamin D deficiency has been defined by the [place] ofMedicine and an Endocrine Society practice guideline as alevel of serum 25-OH vitamin D less than 20 ng/mL (1,2).The Endocrine Society went on to further define vitamin Dinsufficiency as a level between 21 and 29 ng/mL (2).1. IOM ([place] of Medicine). 2010. Dietary reference intakes for calcium and D. [place]: The National Academies Press.2. Stephon MF, Ana NC, Alka ROMERO, et al. Evaluation, treatment, and prevention of vitamin D deficiency: an Endocrine Society clinical practice guideline. JCEM. 2010; 96(7):1911-30. :46 Metabolic Panel, Comprehensive Comments: PATIENT WAS FASTINGPERFORMED BY: [employer]6370 [facility] [id number] (73740) ALT (SGPT) 19 [iU]/L (Normal) Range: 0-32 [...] Glucose, Serum 126 mg/dL (Abnormal) Range: 65-99 55-Djj-06259:46 CBC WITH MANUAL DIFF Comments: PATIENT WAS FASTINGPERFORMED BY: [facility]Core[facility]6370 [facility] [id number] Information: [id number] (39508) Hematology Comments: Note: (Normal) Comments: Manual differential [...] 14.0 {x10E3/uL} (Abnormal) Range: 3.4-10.8 :46 URINALYSIS (29980) Comments: PATIENT WAS FASTINGPERFORMED BY: [employer] spigit [facility] [id number] Microscopic Examination See below: (Normal) Comments: Microscopic was indicated and was performed. Nitrite, Urine Negative (Normal) Urobilinogen,Semi-Qn 0.2 mg/dL (Normal) Range: 0.2-1.0 Bilirubin Negative (Normal) Occult Blood Negative (Normal) Ketones Negative (Normal) Glucose 2+ (Abnormal) Protein Negative (Normal) WBC Esterase 3+ (Abnormal) Appearance Clear (Normal) Urine-Color Yellow (Normal) pH 6.5 (Normal) Range: 5.0-7.5 Specific Austin 1.022 (Normal) Range: 1.005-1.030 :46 MICROALBUMIN: CREATININE RATIO Comments: PATIENT WAS FASTINGPERFORMED BY: [employer] spigit [facility] [id number] (57281) AND (15234) Microalb/Creat Ratio 10.1 {mg/g_creat} (Normal) Range: 0.0-30.0 Microalbumin, Urine 7.3 ug/mL (Normal) Creatinine, Urine 72.6 mg/dL (Normal) :46 TSH (63265) Comments: PATIENT WAS FASTINGPERFORMED BY: [employer] Jyyxif4889 [facility] [id number] TSH 2.600 {uIU/mL} (Normal) Range: 0.450-4.500 :46 Lipid Panel (24907) Comments: PATIENT WAS FASTINGPERFORMED BY: [employer] spigit [facility] [id number]; has appt 08/20, will review at that [...] (Normal) Range: 100-199 :49 HgA1C , Office (47424) HgA1C , Office 6.6 % (Normal) Range: 4.6 - 7.1 :49 Blood Glucose , Office (93870) Blood Glucose , Office 113 (Normal) :10 CBC W/Diff, Automated Comments: [facility] [address] [place], [address] Absolute Lymph 1.40 {X10_3/ul} (Normal) Range: 0.83-4.51 [...] (Normal) Range: 4.4-11.0 :10 Magnesium Comments: Comments: [facility] [address] [place], [phone] MG 1.9 mg/dL (Normal) Range: 1.8-2.4 :10 Protein+Creatinine Ratio,Urine Comments: [facility] [address] [place], [address] PROT:CRE RATIO 112 {mg/g_CRE} (Normal) Range: 0-200 PROTEIN,UR.RAN. 8.1 mg/dL (Normal) UR CREAT 72.10 mg/dL (Normal) :10 PTH,INTACT Comments: [facility] [address] [place], [phone] PTH,Intact 29 pg/mL (Normal) Range: 14-72 :10 Renal Profile Comments: Comments: [facility] [address] [place], [phone] CO2 25.0 mmol/L (Normal) Range: 21.0-32.0 CL [...] 126 mg/dLsuggests DIABETES MELLITUS per A.D.A. criteria. 96-Vgu-058971:10 Uric Acid Comments: Comments: [facility] [address] [place], [phone] URIC 7.1 mg/dL (Abnormal) Range: 2.6-6.0 Comments: The drugs N-Acetylcysteine and Metamizole may falsely deressthis assay. 30-Jvw-800286:10 Vitamin D,25 Hydroxy Comments: [facility] [address] [place], [address] Vitamin D 25-OH 35.5 ng/mL (Normal) Comments: Vitamin D 25(OH) Status Range Deficiency <20 ng/mL (50nmol/L) Insuffciency 20 - 30 ng/mL (50 - 75 nmol/L) Sufficiency 30 - 100 ng/mL (75 - 250 nmol/L) Toxicity >100 ng/mL (>250 nmol/L) 95-Ouz-018812:10 CALCIUM SERUM (06772) Comments: PATIENT NOT FASTINGPERFORMED BY: [employer] Cwmric5889 [facility] RoamingBets[facility] [id number] Information: [id number] Calcium, Serum 10.3 mg/dL (Normal) Range: 8.7-10.3 31-Kvn-126977:10 MAGNESIUM (84160) Comments: PATIENT NOT FASTINGPERFORMED BY: [employer] Guqdny9150 Global Roamingin [place] [id number] Magnesium, Serum 2.1 mg/dL (Normal) Range: 1.6-2.3 :14 Bedside Glucose Comments: [facility] LaboratoryPoint of Tqlr[address] [place] [address] BEDSIDE GLU 110 mg/dL (Normal) Range: 70-110 Comments: MANAGEMENT OF PATIENT CARE PER NURSING PROTOCOL :26 Metabolic Panel, Basic Comments: PATIENT NOT FASTINGPERFORMED BY: [facility] Dcjgee9396 [facility] [id number] Information: [id number]; will review on 06/04 (27221) Calcium, Serum 10.0 mg/dL (Normal) Range: 8.7-10.3 [...] Glucose, Serum 104 mg/dL (Abnormal) Range: 65-99 74-Xsw-678123:39 Magnesium Comments: ORDERED CA AND PTHINDRLUDA ORDERED CBC PTHIN RENAL VITD CRE/PROURIC [facility] [address] [place], [address] MG 2.0 mg/dL (Normal) Range: 1.8-2.4 :39 Protein+Creatinine Ratio,Urine Comments: [facility] [address] [place], [address] PROT:CRE RATIO 188 {mg/g_CRE} (Normal) Range: 0-200 PROTEIN,UR.RAN. < 6.0 mg/dL (Normal) UR CREAT 29.80 mg/dL (Normal) 89-Rex-452166:39 PTH,INTACT Comments: [facility] [address] [place], [address] PTH,Intact 53 pg/mL (Normal) Range: 14-72 :39 Renal Profile Comments: ORDERED CA AND PTHINDR.LUZ ORDERED CBC PTHIN RENAL VITD CRE/PROURIC [facility] [address] [place], [address] CO2 22.0 mmol/L (Normal) Range: 21.0-32.0 CL [...] PTHINDR.LUZ ORDERED CBC PTHIN RENAL VITD CRE/PROURIC [facility] [address] [place], [phone] URIC 7.3 mg/dL (Abnormal) Range: 2.6-6.0 Comments: The drugs N-Acetylcysteine and Metamizole may falsely deressthis assay. 77-Pie-534958:39 Vitamin D,25 Hydroxy Comments: [facility] [address] [place], [phone] Vitamin D 25-OH 52.3 ng/mL (Normal) Comments: Vitamin D 25(OH) Status Range Deficiency <20 ng/mL (50nmol/L) Insuffciency 20 - 30 ng/mL (50 - 75 nmol/L) Sufficiency 30 - 100 ng/mL (75 - 250 nmol/L) Toxicity >100 ng/mL (>250 nmol/L) 2-Uad-731353:09 URINE CALCIUM KAITLIN TIMED Comments: PATIENT NOT FASTINGPERFORMED BY: [facility] Wgozqm1034 [facility] [id number] Information: [id number] 2500ML START @6AM FINISH 05/05/16@ 6AM (67678) Calcium, Urine 24hr 45.0 {mg/24_hr} (Abnormal) Range: 100.0-300.0 Calcium, Urine 1.8 mg/dL (Normal) 02-May-20169:30 Fecal Occult Blood , Office (80172) Fecal Occult Blood , Office (Inhouse) negative (Normal) 16-Rtr-706546:23 Crystals, Body Fluid Comments: [facility] [address] [place], [id number] PATH REV Reviewed (Normal) Comments: Negative for malignant cells.Mixture of calcium pyrophosphate (pseudogout) crystals andnondescript crystals are noted.Johnson Castro M.D. 04/29/16 SOURCE/BF SYNOVIAL (Normal) CRYSTALS/BF SEE PATH REV (Normal) 02-Jjm-698720:23 Culture, Body Fluid Comments: [facility] [address] [place], [phone] CUBF See Note (Normal) Comments: List Antibiotics Last 48 Hours? UNKList Antibiotics to be Started? UNKGram StainCentrifuged Specimen? Culture performed on centrifuged specimen Gram Stain Rare Red Cell Stroma Rare Red Blood Cells No organisms seen Body Fluid CultNO GROWTH IN 14 DAYS Cult, AnaerobicNo growth in 5 days. 21-Zqt-354254:23 GLUCOSE, SYNOVIAL FLUID Comments: ORDERED WRONGSpecimen Source: [...] be integrated into the clinical contextfor interpretation. 37-Cub-686794:23 Synovial Fluid RBC, WBC AND Comments: [facility] Kdgyvgdcsp[address]26 [facility] [place], [address] Diff PATH COM/SYFL March follow (Normal) OTHER [...] COLOR Yellow (Normal) VISCOSITY/SYFL Sl. Viscous (Normal) 4-Wmn-084391:58 CALCIUM SERUM (66993) Comments: PATIENT NOT FASTINGPERFORMED BY: [facility] SYSTEMSBets[facility] [id number] Information: [id number] Calcium, Serum 10.6 mg/dL (Abnormal) Range: 8.7-10.3 :10 Microscopic Examination Comments: PATIENT WAS FASTINGPERFORMED BY: [employer]6370 [facility]amingB[facility] [id number] Bacteria None seen (Normal) Mucus Threads Present (Normal) Epithelial Cells (non renal) 0-10 {/hpf} (Normal) Range: 0 - 10 RBC None seen {/hpf} (Normal) Range: 0 - 2 WBC 0-5 {/hpf} (Normal) Range: 0 - 5 :10 CALCIFIDIOL (90680) VIT D 25 Comments: PATIENT WAS FASTINGPERFORMED BY: [employer]6370 [facility]iesFirst[facility] [id number] Vitamin D, 25-Hydroxy 63.0 ng/mL (Normal) Range: 30.0-100.0 Comments: Vitamin D deficiency has been defined by the [place] ofMedicine and an Endocrine Society practice guideline as alevel of serum 25-OH vitamin D less than 20 ng/mL (1,2).The Endocrine Society went on to further define vitamin Dinsufficiency as a level between 21 and 29 ng/mL (2).1. IOM ([place] of Medicine). 2010. Dietary reference intakes for calcium and D. [place]: The National Academies Press.2. Stephon MF, Ana [place], Alka ROMERO, et al. Evaluation, treatment, and prevention of vitamin D deficiency: an Endocrine Society clinical practice guideline. JCEM. 2010; 96(7):1911-30. :10 TSH (19826) Comments: PATIENT WAS FASTINGPERFORMED BY: PRATIMA [facility] LabsCore[facility]6370 [facility] [id number] TSH 2.680 {uIU/mL} (Normal) Range: 0.450-4.500 :10 URINALYSIS, W/ MICRO (18619) Comments: PATIENT WAS FASTINGPERFORMED BY: [facility]6370 [facility] [id number] Microscopic Examination See below: (Normal) Comments: Microscopic was indicated and was performed. Microscopic Examination MICRON (Normal) Comments: Microscopic follows if indicated. Nitrite, Urine Negative (Normal) Urobilinogen,Semi-Qn 0.2 mg/dL (Normal) Range: 0.2-1.0 Bilirubin Negative (Normal) Occult Blood Negative (Normal) Ketones Negative (Normal) Glucose 3+ (Abnormal) Protein Negative (Normal) WBC Esterase Negative (Normal) Appearance Clear (Normal) Urine-Color Yellow (Normal) pH 6.5 (Normal) Range: 5.0-7.5 Specific Austin 1.022 (Normal) Range: 1.005-1.030 :10 MICROALBUMIN: CREATININE RATIO Comments: PATIENT WAS FASTINGPERFORMED BY: [facility] LabsCorewell [facility]6370 [facility] [id number] (01727) AND (92290) Microalb/Creat Ratio 20.5 {mg/g_creat} (Normal) Range: 0.0-30.0 Microalbumin, Urine 20.1 ug/mL (Normal) Comments: Please note reference interval change Creatinine, Urine 97.9 mg/dL (Normal) Comments: Please note reference interval change :10 LIPID PANEL (46421) Comments: PATIENT WAS FASTINGPERFORMED BY: [facility]6370 [facility] [id number] LDL/HDL Ratio 2.0 {ratio_units} (Normal) Range: 0.0-3.2 [...] Cholesterol, Total 141 mg/dL (Normal) Range: 100-199 46-Iwo-48708:10 METABOLIC PANEL, COMPREHENSIVE Comments: PATIENT WAS FASTINGPERFORMED BY: [facility] Wodunx1902 [facility] [id number]; will review on 04.18 (34560) ALT (SGPT) 18 [iU]/L (Normal) Range: 0-32 [...] DIFF WBC Comments: PATIENT WAS FASTINGPERFORMED BY: LabCoKindred Hospital at WayneKnllgo1321 Bryce BishopSaint [facility] Hebron [id number] Information: [id number] (52893) Immature Grans (Abs) 0.0 {x10E3/uL} (Normal) Range: [...] (Normal) Range: 3.4-10.8 :02 HgA1C , Office (15983) HgA1C , Office 6.6 % (Normal) Range: 4.6 - 7.1 :02 Blood Glucose , Office (38901) Blood Glucose , Office 142 (Normal) 38-Voh-605389:20 NuSwab Vaginitis Plus Comments: PATIENT NOT FASTINGPERFORMED BY: Lab[address] [id number] Information: [id number] (STD W/O Herpes) (60965) Neisseria gonorrhoeae, YAIR Negative (Normal) Chlamydia trachomatis, YAIR Negative (Normal) Trich vag by YAIR Negative (Normal) Yana glabrata, YAIR Negative (Normal) Comments: This test was developed and its performance characteristics determinedby LabCoKormeli. It has not been cleared or approved [...] was developed and its performance characteristics determinedby [employer]. It has not been cleared or appro tima by the Food and DrugAdministration. The FDA has determined that such clearance orapproval is not necessary. BVAB 2 Low - 0 {Score} (Normal) Atopobium vaginae Low - 0 {Score} (Normal) 00-Vvk-825463:56 Magnesium Comments: Test performed at:[facility] [address] [place] [address] MG 2.2 mg/dL (Normal) Range: 1.8-2.4 11-Wic-555912:56 Protein+Creatinine Ratio,Urine Comments: Test performed at:[facility] [address] [place] [address] PROT:CRE RATIO 440 {mg/g_CRE} (Abnormal) Range: 0-200 PROTEIN,UR.RAN. 8.1 mg/dL (Normal) UR CREAT 18.20 mg/dL (Normal) 75-Qzk-021034:56 Renal Profile Comments: Test performed at:[facility] [address] [place] [id number] CO2 28.0 mmol/L (Normal) Range: 21.0-32.0 CL [...] Comments: Please note revised CREATININE reference range rrswwydse18/22/2015. BUN 44 mg/dL (Abnormal) Range: 7-18 GLU 186 mg/dL (Abnormal) Range: 70-110 Comments: Fasting Glucose result greater than or equal to 126 mg/dLsuggests DIABETES MELLITUS per A.D.A. criteria. 20-Tet-105677:56 Uric Acid Comments: Test performed at:[facility] [address] [place] [address] [id number] URIC 6.5 mg/dL (Abnormal) Range: 2.6-6.0 :56 Vitamin D,25 Hydroxy Comments: Test performed at:[facility] [address] [place] [address] 891561 Vitamin D 25-OH 67.0 ng/mL (Normal) Comments: Vitamin D 25(OH) Status Range Deficiency <20 ng/mL (50nmol/L) Insuffciency 20 - 30 ng/mL (50 - 75 nmol/L) Sufficiency 30 - 100 ng/mL (75 - 250 nmol/L) Toxicity >100 ng/mL (>250 nmol/L) 60-Lxw-171709:01 Rapid Strep Test, Office (05268) Rapid Strep Test, Office Negative (Normal) 50-Vsg-69879:21 HgA1C , Office (37723) HgA1C , Office 6.4 % (Normal) Range: 4.6 - 7.1 :21 Blood Glucose , Office (92310) Blood Glucose , Office 167 (Normal) :01 Microscopic Examination Comments: PATIENT WAS FASTINGPERFORMED BY: [address] [id number] Bacteria Few (Normal) Mucus Threads Present (Normal) Epithelial Cells (non renal) 0-10 {/hpf} (Normal) Range: 0 - 10 RBC 0-2 {/hpf} (Normal) Range: 0 - 2 WBC 6-10 {/hpf} (Abnormal) Range: 0 - 5 :50 Antinuclear Antibodies Direct Comments: PATIENT NOT FASTINGPERFORMED BY: [facility]6370 [facility] [id number] HEIDI Direct Negative (Normal) : C-Reactive Protein, 7.3 mg/L (Abnormal) Comments: PATIENT NOT FASTINGPERFORMED BY: [place] 9886470 [facility] [id number] 50 Quant Range: 0.0-4.9 :50 CBC, Platelet, No Differential Comments: PATIENT NOT FASTINGPERFORMED BY: [address] [id number] Platelets 253 {x10E3/uL} (Normal) Range: 150-379 RDW [...] Panel (14) Comments: PATIENT NOT FASTINGPERFORMED BY: [employer] Ltkdgh6591 [facility] [id number] Information: [id number] ALT (SGPT) 17 [iU]/L (Normal) Range: 0-32 [...] ng/mL (Normal) Comments: PATIENT NOT FASTINGPERFORMED BY: [employer] Yfqlzh9969 [facility] [id number] 50 Serum Comments: A serum folate concentration of less than 3.1 ng/mL isconsidered to represent clinical deficiency. :50 Rheumatoid Arthritis Factor Comments: PATIENT NOT FASTINGPERFORMED BY: [employer] Uflcvp6564 [facility] [id number] RA Latex Turbid. 10.5 {IU/mL} Range: 0.0-13.9 (Normal) Sedimentation 7 mm/h (Normal) Comments: PATIENT NOT FASTINGPERFORMED BY: [facility]6370 [facility] [id number] :50 Rate-Westergren Range: 0-40 TSH 2.450 {uIU/mL} Comments: PATIENT NOT FASTINGPERFORMED BY: LabCorewell [facility]6370 [facility] [id number] :50 (Normal) Range: 0.450-4.500 Vitamin B12 1684 pg/mL Comments: PATIENT NOT FASTINGPERFORMED BY: [facility]6370 [facility] [id number] :50 (Abnormal) Range: 211-946 Vitamin D, 25-Hydroxy 75.1 ng/mL Comments: PATIENT NOT FASTINGPERFORMED BY: [facility]6370 [facility] [id number] :50 (Normal) Range: 30.0-100.0 Comments: Vitamin D deficiency has been defined by the [place] ofMedicine and an Endocrine Society practice guideline as alevel of serum 25-OH vitamin D less than 20 ng/mL (1,2).The Endocrine Society went on to further define vitamin Dinsufficiency as a level between 21 and 29 ng/mL (2).1. IOM ([place] of Medicine). 2010. Dietary reference intakes for calcium and D. [place]: The National Academies Press.2. Stephon MF, Ana [place], [place] ROMERO, et al. Evaluation, treatment, and prevention of vitamin D deficiency: an Endocrine Society clinical practice guideline. JCEM. 2010; 96(7):1911-30. :57 Lower Respiratory Culture Comments: PATIENT NOT FASTINGPERFORMED BY: [facility]6370 [facility] [id number] Information: SRC:[facility] [id number] Result 1 RRF (Normal) Comments: Routine respiratory hermelindo Lower Respiratory Culture Final report (Normal) :01 MICROALBUMIN: CREATININE RATIO Comments: PATIENT WAS FASTINGPERFORMED BY: [employer] Rtbahj2428 [facility] [id number] (48033) AND (05218) Microalb/Creat Ratio 22.8 {mg/g_creat} (Normal) Range: 0.0-30.0 Microalbumin, Urine 18.8 ug/mL (Abnormal) Range: 0.0-17.0 Creatinine, Urine 82.6 mg/dL (Normal) Range: 15.0-278.0 : URINALYSIS (37724) Comments: PATIENT WAS FASTINGPERFORMED BY: E[employer]oCap Ytfoii2691 [facility] [id number] Microscopic Examination See below: (Normal) Comments: Microscopic was indicated and was performed. Nitrite, Urine Negative (Normal) Urobilinogen,Semi-Qn 0.2 mg/dL (Normal) Range: 0.0-1.9 Bilirubin Negative (Normal) Occult Blood Negative (Normal) Ketones Negative (Normal) Glucose 2+ (Abnormal) Protein Negative (Normal) WBC Esterase Trace (Abnormal) Appearance Clear (Normal) Urine-Color Yellow (Normal) pH 6.5 (Normal) Range: 5.0-7.5 Specific Austin 1.020 (Normal) Range: 1.005-1.030 :01 Metabolic Panel, Comments: PATIENT WAS FASTINGPERFORMED BY: [facility] Spbifh5514 [facility] [id number] Information: [id number], [id number] Comprehensive (68596) ALT (SGPT) 17 [iU]/L (Normal) Range: 0-32 [...] 110 mg/dL (Abnormal) Range: 65-99 :01 CALCIFEDIOL (00514) Comments: PATIENT WAS FASTINGPERFORMED BY: Merge[employer] AG70 S[employer]Stage [facility] HospitalConcealium SoftwareBetsy Johnson Regional Hospital [id number] Vitamin D, 25-Hydroxy 101.0 ng/mL (Abnormal) Range: 30.0-100.0 Comments: Vitamin D deficiency has been defined by the [place] ofMedicine and an Endocrine Society practice guideline as alevel of serum 25-OH vitamin D less than 20 ng/mL (1,2).The Endocrine Society went on to further define vitamin Dinsufficiency as a level between 21 and 29 ng/mL (2).1. IOM ([place] of Medicine). 2010. Dietary reference intakes for calcium and D. [place]: The National Academies Press.2. Stephon MF, Ana NC, Alka ROMERO, et al. Evaluation, treatment, and prevention of vitamin D deficiency: an Endocrine Society clinical practice guideline. JCEM. 2010; 96(7):1911-30. :01 Lipid Panel (35754) Comments: PATIENT WAS FASTINGPERFORMED BY: [employer]6370 [facility] [id number] LDL/HDL Ratio 1.4 {ratio_units} (Normal) Range: 0.0-3.2 [...] (Normal) Range: 100-199 :06 HgA1C , Office (29430) HgA1C , Office 6.4 % (Normal) Range: 4.6 - 7.1 :06 Blood Glucose , Office (50730) Blood Glucose , Office 168 (Normal) :43 CBC W/Diff, Automated Comments: Test performed at:[facility] Peuckdcxbj[address] [place] [address] Absolute Lymph 1.33 {X10_3/ul} (Normal) Range: 0.83-4.51 [...] Range: 4.4-11.0 :43 Magnesium Comments: Test performed at:[facility] [address] [place] [address] 66014 MG 1.6 mg/dL (Abnormal) Range: 1.8-2.4 :43 Protein+Creatinine Ratio,Urine Comments: Test performed at:[facility] [address] [place] [address] [id number] PROT:CRE RATIO 143 {mg/g_CRE} (Normal) Range: 0-200 PROTEIN,UR.RAN. 16.0 mg/dL (Abnormal) UR CREAT 111.6 mg/dL (Normal) :43 Renal Profile Comments: Test performed at:[facility] Ewq[address] [place] [address] 036651 CO2 29.0 mmol/L (Normal) Range: 21.0-32.0 CL [...] criteria. :43 Uric Acid Comments: Test performed at:[facility] Qwp[address]sc[address] [place], [place] [id number] URIC 7.5 mg/dL (Abnormal) Range: 2.6-6.0 :43 Vitamin D,25 Hydroxy Comments: Test performed at:[facility] Wj[address]umvigs[address] [place], [place] [id number] Vitamin D 25-OH 48.0 ng/mL (Normal) Comments: Vitamin D 25(OH) Status Range Deficiency <20 ng/mL (50nmol/L) Insuffciency 20 - 30 ng/mL (50 - 75 nmol/L) Sufficiency 30 - 100 ng/mL (75 - 250 nmol/L) Toxicity >100 ng/mL (>250 nmol/L) :16 HgA1C , Office (67981) HgA1C , Office 5.6 % (Normal) Range: 4.6 - 7.1 :16 Blood Glucose , Office (06253) Blood Glucose , Office 113 (Normal) :35 CALCIUM SERUM (81932) Comments: PATIENT NOT FASTINGPERFORMED BY: ComVibe[address] [id number] Information: [id number] Calcium, Serum 10.0 mg/dL (Normal) Range: 8.6-10.2 :55 HEIDI Negative (Normal) Comments: Performed at: [facility] [id number] Director: Taurus Morrissey MD, Phone: [phone] :[phone] CBCD ALC 1.15 {X10_3/ul} (Normal) Range: [...] ttHEBSAG Negative (Normal) Comments: Performed at: - Lab[address] [id number] Director: Taurus Morrissey MD, Phone: [phone] at: [facility] [id number] 1Lab Director: Juan Carlos Mathew MD, Phone: [phone] :[phone] HECAB tHECAB 0.1 {s/co_ratio} (Normal) Range: 0.0-0.9 Comments: Negative: < 0.8Indeterminate 0.8 - 0.9Positive: > 0.9In order to reduce the incidence of a false positiveresult, the CDC recommends that all s/co ratiosbetween 1.0 and 10.9 be confirmed by a more specificsupplemental or PCR testing. [facility] offers HCV Abw/Reflex to Verification test #[id number]. :55 RF < 10.0 {IU/mL} (Normal) :55 SED tSEDRATE 7 mm/h (Normal) Range: 0-30 :55 VITD 45.5 mg/mL (Normal) Comments: Vitamin D 25(OH) Status RangeDeficiency <20 ng/mL (50nmol/L)Insuffciency 20 - 30 ng/mL (50 - 75 nmol/L)Sufficiency 30 - 100 ng/mL (75 - 250 nmol/L)Toxicity >100 ng/mL (>250 nmol/L) :05 CALCIFEDIOL (81573) Comments: PATIENT NOT FASTINGPERFORMED BY: [facility]6370 [facility] [id number] Information: [id number] Vitamin D, 25-Hydroxy 34.1 ng/mL (Normal) Range: 30.0-100.0 Comments: Vitamin D deficiency has been defined by the [place] ofCleveland Clinic Lutheran Hospitalcine and an Endocrine Society practice guideline as alevel of serum 25-OH vitamin D less than 20 ng/mL (1,2).The Endocrine Society went on to further define vitamin Dinsufficiency as a level between 21 and 29 ng/mL (2).1. IOM ([place] of Medicine). 2010. Dietary reference intakes for calcium and D. [place]: The National Academies Press.2. Stephon MF, Ana NC, Alka ROMERO, et al. Evaluation, treatment, and prevention of vitamin D deficiency: an Endocrine Society clinical practice guideline. JCEM. 2010; 96(7):1911-30. :05 CALCIUM SERUM (05708) Comments: PATIENT NOT FASTINGPERFORMED BY: [facility]6370 [facility] [id number] Calcium, Serum 10.3 mg/dL (Abnormal) Range: 8.6-10.2 :43 CALCIFIDIOL (35600) VIT D Comments: PATIENT NOT FASTINGPERFORMED BY: [facility]6370 [facility] [id number] Information: [id number] 25 Vitamin D, 25-Hydroxy 44.7 ng/mL (Normal) Range: 30.0-100.0 Comments: Vitamin D deficiency has been defined by the [place] ofMedicine and an Endocrine Society practice guideline as alevel of serum 25-OH vitamin D less than 20 ng/mL (1,2).The Endocrine Society went on to further define vitamin Dinsufficiency as a level between 21 and 29 ng/mL (2).1. IOM ([place] of Medicine). 2010. Dietary reference intakes for calcium and D. [place]: The National Academies Press.2. Stephon MF, Ana ROY, Alka ROMERO, et al. Evaluation, treatment, and prevention of vitamin D deficiency: an Endocrine Society clinical practice guideline. JCEM. 2010; 96(7):1911-30. 32-Tzk-107151:36 URINE CALCIUM KAITLIN TIMED Comments: PATIENT NOT FASTINGPERFORMED BY: [facility] LabsCorewell Health [facility] Hospital6370 [facility] [id number] Information: [id number] 1950ML START 05/21@630AM FINISH 05/22/14@6 30AM 24 Hour (23786) Calcium, Urine 24hr 93.6 {mg/24_hr} (Abnormal) Range: 100.0-300.0 Calcium, Urine 4.8 mg/dL (Normal) 31-Ltr-039853:43 PARATHORMONE (54204) Comments: PATIENT NOT FASTINGPERFORMED BY: [facility] LabsCorewell Health [facility] Hospital6370 [facility] [id number] PTH, Intact 22 pg/mL (Normal) Range: 15-65 66-Ygj-44125:56 Metabolic Panel, Basic Comments: drawn next ; PATIENT NOT FASTINGPERFORMED BY: [facility] LabsCorewell Health [facility] Hospital6370 [facility] [id number] Information: [id number] (61020) Calcium, Serum 10.5 mg/dL (Abnormal) Range: 8.6-10.2 [...] Glucose, Serum 113 mg/dL (Abnormal) Range: 65-99 3-Gpt-394844:50 METABOLIC PANEL, Comments: PATIENT NOT FASTINGPERFORMED BY: LabCoWinslow Indian Health Care CenterYxyqko3295 [facility] [id number] Information: [id number] COMPREHENSIVE (86845) ALT (SGPT) 22 [iU]/L (Normal) Range: 0-32 [...] (Abnormal) Range: 65-99 :13 HgA1C , Office (77690) HgA1C , Office 6.5 % (Normal) Range: 4.6 - 7.1 :13 Blood Glucose , Office (72410) Blood Glucose , Office 163 (Normal) :41 [...] CREATININE RATIO Comments: PATIENT WAS FASTINGPERFORMED BY: GENI[facility] CENTRAL SYSTEMSBetsy Johnson Regional Hospital [id number] (82883) AND (17336) Microalb/Creat Ratio 6.2 {mg/g_creat} (Normal) Range: 0.0-30.0 Microalbumin, Urine 2.2 ug/mL (Normal) Range: 0.0-17.0 Creatinine, Urine 35.7 mg/dL (Normal) Range: 15.0-278.0 :38 URINALYSIS (33250) Comments: PATIENT WAS FASTINGPERFORMED BY: [employer]6370 wedgiesFirstHealth [facility] [id number] Microscopic Examination MICRON (Normal) Comments: Microscopic follows if indicated. Nitrite, Urine Negative (Normal) Urobilinogen,Semi-Qn 0.2 mg/dL (Normal) Range: 0.0-1.9 Bilirubin Negative (Normal) Occult Blood Negative (Normal) Ketones Negative (Normal) Glucose Negative (Normal) Protein Negative (Normal) WBC Esterase Negative (Normal) Appearance Clear (Normal) Urine-Color Yellow (Normal) pH 7.5 (Normal) Range: 5.0-7.5 Specific Austin 1.010 (Normal) Range: 1.005-1.030 :38 CALCIFEDIOL (19346) Comments: PATIENT WAS FASTINGPERFORMED BY: AssurelyFirstHealth [facility] [id number] Vitamin D, 25-Hydroxy 44.7 ng/mL (Normal) Range: 30.0-100.0 Comments: Vitamin D deficiency has been defined by the [place] ofMedicine and an Endocrine Society practice guideline as alevel of serum 25-OH vitamin D less than 20 ng/mL (1,2).The Endocrine Society went on to further define vitamin Dinsufficiency as a level between 21 and 29 ng/mL (2).1. IOM ([place] of Medicine). 2010. Dietary reference intakes for calcium and D. [place]: The National Academies Press.2. Stephon MF, Ana ROY, Alka ROMERO, et al. Evaluation, treatment, and prevention of vitamin D deficiency: an Endocrine Society clinical practice guideline. JCEM. 2010; 96(7):1911-30. :38 TSH (88361) Comments: PATIENT WAS FASTINGPERFORMED BY: [facility] Bosbsy7362 [facility] [id number] TSH 2.930 {uIU/mL} (Normal) Range: 0.450-4.500 :38 CBC with manual diff Comments: PATIENT WAS FASTINGPERFORMED BY: [facility] Vayvlw1751 [facility] [id number] Information: [id number] (91929) Immature Grans (Abs) 0.0 {x10E3/uL} (Normal) Range: [...] Comprehensive Comments: PATIENT WAS FASTINGPERFORMED BY: [facility] Rporqf5218 [facility] [id number] (22304) ALT (SGPT) 22 [iU]/L (Normal) Range: 0-32 [...] Glucose, Serum 92 mg/dL (Normal) Range: 65-99 42-Csr-57922:38 Lipid Panel (04422) Comments: PATIENT WAS FASTINGPERFORMED BY: ComVibeKindred Hospital at WayneWesvzi6293 [facility] [id number] LDL/HDL Ratio 1.2 {ratio_units} (Normal) Range: 0.0-3.2 LDL Cholesterol Calc 53 mg/dL (Normal) Range: 0-99 VLDL Cholesterol Yamilka 27 mg/dL (Normal) Range: 5-40 HDL Cholesterol 45 mg/dL (Normal) Comments: According to ATP-III Guidelines, HDL-C >59 mg/dL is considered anegative risk factor for CHD. Triglycerides 135 mg/dL (Normal) Range: 0-149 Cholesterol, Total 125 mg/dL (Normal) Range: 100-199 51-Tve-61964:05 LIPID PANEL (82124) Comments: PATIENT WAS FASTINGPERFORMED BY: ComVibeKindred Hospital at WayneDrbfai7759 [facility] [id number] Information: [id number] LDL/HDL Ratio 1.6 {ratio_units} (Normal) Range: 0.0-3.2 LDL Cholesterol Calc 76 mg/dL (Normal) Range: 0-99 VLDL Cholesterol Yamilka 30 mg/dL (Normal) Range: 5-40 HDL Cholesterol 49 mg/dL (Normal) Comments: According to ATP-III Guidelines, HDL-C >59 mg/dL is considered anegative risk factor for CHD. Triglycerides 148 mg/dL (Normal) Range: 0-149 Cholesterol, Total 155 mg/dL (Normal) Range: 100-199 99-Ids-180632:43 FECAL OCCULT HGB ASSAY- tubes sent home (35051) FECAL OCCULT HGB ASSAY, QUAL, 1-3 SIMULTANEOU negative (Normal) 82-Eoh-361015:40 Nuclear Stress Test Radiology Report See Note [...] The patient was injected with 31.6 mCi mwGi88g Cardiolite and subsequently stress SPECT Cardiolite nuclear [...] Wiliam MASON by Mayur FELIX,Yosi on 07/29/13 1516 Sign by: Yosi Merchant MD 27-Tdt-93310:52 KNEE 1 OR 2 VIEWS Radiology Report [...] Ferguson M.D.July 29, 2013 at 5:00:35 PM [phone] Signed RU/RU If you are the referring phys ician and would like to consult with theradiologist who provided this interpretation, please contact Alejandro Horton at [phone]. If this radiologist is unavailable, youwillbe directed to [facility] radiologist to assist. If you are a patient with a question regarding this report, pleasecontactyour referring physician directly. Professional Interpretation Provided By: Bufys, Phone , These documents contain legally protected [...] on 07/29/131714 Si gn by: Ag Ferguson 67-Val-22575:52 KNEE 1 OR 2 VIEWS Radiology Report [...] Ferguson M.D.July 29, 2013 at 5:02:45 PM [phone] Signed RU/RU If you are the referring physician and would like to consult with therad iologist who provided this interpretation, please contact Alejandro Horton at [phone]. If this radiologist is unavailable, youwillbe directed to another radiologist to assist. If you are a sandra ent with a question regarding this report, pleasecontactyour referring physician directly. Professional Interpretation Provided By: Bufys, Phone , These documents con tain legally [...] Ferguson on 07/29/131716 Sign by: Ag Ferguson 59-Nmi-563558:27 CCP ANTIBODY (20459) Comments: PATIENT NOT FASTINGPERFORMED BY: [employer] LabVizu Corporation6370 [facility] [id number] BY: [facility] [id number] CCP Antibodies IgG/IgA 5 {units} (Normal) Range: 0-19 Comments: Negative <20 Weak positive 20 - 39 Moderate positive 40 - 59 Strong positive >59 06-Mvd-053406:27 SED RATE ERYTHROCYTE Comments: PATIENT NOT FASTINGPERFORMED BY: EcoloCaprp Nlrdwf4088 [facility] [id number] BY: [facility] [id number] (92133) Sedimentation Rate-Westergren 2 mm/h (Normal) Range: 0-40 84-Vhf-357300:27 C-REACTIVE PROTEIN Comments: PATIENT NOT FASTINGPERFORMED BY: [employer] LabintroNetworksrp Xntiht5848 [facility] [id number] BY: [facility] [id number] (92816) C-Reactive Protein, Quant 2.1 mg/L (Normal) Range: 0.0-4.9 02-Kxs-245435:27 TSH (42531) Comments: PATIENT NOT FASTINGPERFORMED BY: CB LabintroNetworksrp Pfohzu0337 [facility] [id number] BY: [address] [id number] TSH 1.630 {uIU/mL} (Normal) Range: 0.450-4.500 33-Tca-160813:27 RHEUMATOID FACTOR-QUANT Comments: PATIENT NOT FASTINGPERFORMED BY: ComVibeChristopher [place] 3179770 [facility] [id number] BY: [address] [id number] (59040) RA Latex Turbid. 9.7 {IU/mL} (Normal) Range: 0.0-13.9 25-Vmt-036158:27 HEIDI (ANTINUCLEAR ANTIBODY) Comments: PATIENT NOT FASTINGPERFORMED BY: LabintroNetworksChristopher [place] 3179770 [facility] [id number] BY: [address] [id number] (81679) HEIDI Direct Negative (Normal) :27 CBC WITH MANUAL DIFF Comments: PATIENT NOT FASTINGPERFORMED BY: ComVibe[address] [id number] BY: [address] [id number] Inf ormation: [id number] (38939) Immature Grans (Abs) 0.0 {x10E3/uL} (Normal) Range: [...] 3.77-5.28 WBC 8.5 {x10E3/uL} (Normal) Range: 4.0-10.5 63-Jmc-833387:27 METABOLIC PANEL, Comments: PATIENT NOT FASTINGPERFORMED BY: CB [facility] Ghmkkd6587 [facility] [id number] BY: BN [facility] [address] [id number] [facility] (23484) ALT (SGPT) 24 [iU]/L (Normal) Range: 0-32 [...] (Normal) Range: 65-99 :22 HgA1C , Office (16426) HgA1C , Office 5.9 % (Normal) Range: 4.6 - 7.1 :22 Blood Glucose , Office (68022) Blood Glucose , Office 148 (Normal) Comments: non fasting :44 MAGNESIUM (92997) Comments: copy to dr jose mayes; PATIENT NOT FASTINGPERFORMED BY: Merge.[employer] AG70 [facility]North [facility] [id number] Magnesium, Serum 2.0 mg/dL (Normal) Range: 1.6-2.6 :44 Metabolic Panel, Basic Comments: copy to dr jose Mayes; PATIENT NOT FASTINGPERFORMED BY: [employer] LabintroNetworks Zvbmda9048 WuNorth [facility] Hospital [id number] Information: [id number] (90501) Calcium, Serum 10.1 mg/dL (Normal) Range: 8.6-10.2 [...] Glucose, Serum 141 mg/dL (Abnormal) Range: 65-99 66-Isu-462275:10 PTT (Activated Partial Comments: PATIENT NOT FASTINGPERFORMED BY: [place] 9886470 [facility] [id number] Thromboplastin Time) (80525) aPTT 30 {sec} (Normal) Range: 24-33 Comments: This test has not been validated for monitoring unfractionated heparintherapy. aPTT-based therapeutic ranges for unfractionated heparintherapy have not been established. For general guidelines onHeparin monitoring, refer to the [facility] Directory of Services. 04-Pzn-727805:10 PT (Prothrobim Time) Comments: PATIENT NOT FASTINGPERFORMED BY: [address] [id number] Information: [id number] (80100) Prothrombin Time 10.4 {sec} (Normal) Range: 9.1-12.0 INR 1.0 (Normal) Range: 0.8-1.2 Comments: Reference interval is for non-anticoagulated patients. . Suggested INR therapeutic range for Vitamin K anta gonist therapy: Standard Dose (moderate intensity therapeutic range): 2.0 - 3.0 Higher intensity therapeutic range 2.5 - 3.5 15-Cmv-116067:10 Potassium Serum (61493) Comments: PATIENT NOT FASTINGPERFORMED BY: [place] 9886470 [facility] [id number] Potassium, Serum 3.9 mmol/L (Normal) Range: 3.5-5.2 47-Qxk-557111:10 Magnesium (91945) Comments: PATIENT NOT FASTINGPERFORMED BY: [place] 9886470 [facility] [id number] Magnesium, Serum 1.9 mg/dL (Normal) Range: 1.6-2.6 :59 HgA1C , Office (12285) HgA1C , Office 5.7 % (Normal) Range: 4.6 - 7.1 :59 Blood Glucose , Office (29493) Blood Glucose , Office 149 (Normal) :08 TSH (00386) Comments: PATIENT WAS FASTINGPERFORMED BY: [address] [id number] TSH 2.390 {uIU/mL} (Normal) Range: 0.450-4.500 :08 URINALYSIS, W/ MICRO (16150) Comments: PATIENT WAS FASTINGPERFORMED BY: ComVibeKindred Hospital at WayneGseozh9114 [facility] [id number] Microscopic Examination See below: (Normal) Microscopic Examination MICRON (Normal) Comments: Microscopic follows if indicated. Nitrite, Urine Negative (Normal) Urobilinogen,Semi-Qn 0.2 mg/dL (Normal) Range: 0.0-1.9 Bilirubin Negative (Normal) Occult Blood Negative (Normal) Ketones Negative (Normal) Glucose Negative (Normal) Protein Negative (Normal) Appearance Clear (Normal) WBC Esterase Negative (Normal) pH 7.5 (Normal) Range: 5.0-7.5 Specific Austin 1.013 (Normal) Range: 1.005-1.030 Urine-Color Yellow (Normal) :08 MICROALBUMIN: CREATININE RATIO Comments: PATIENT WAS FASTINGPERFORMED BY: ComVibeWinslow Indian Health Care CenterZublnb2469 [facility] [id number] (00770) AND (19760) Microalb/Creat Ratio 3.8 {mg/g_creat} (Normal) Range: 0.0-30.0 Microalbumin, Urine 2.9 ug/mL (Normal) Range: 0.0-17.0 Creatinine, Urine 77.3 mg/dL (Normal) Range: 15.0-278.0 :08 METABOLIC PANEL, COMPREHENSIVE Comments: PATIENT WAS FASTINGPERFORMED BY: ComVibeKindred Hospital at WayneQaacxr8531 [facility] [id number] (89962) ALT (SGPT) 17 [iU]/L (Normal) Range: 0-32 [...] mg/dL (Abnormal) Range: 65-99 :08 LIPID PANEL (43270) Comments: PATIENT WAS FASTINGPERFORMED BY: [employer] [facility] [id number] LDL/HDL Ratio 2.1 {ratio_units} (Normal) Range: 0.0-3.2 [...] MANUAL DIFF Comments: PATIENT WAS FASTINGPERFORMED BY: [employer] Fgbisx5972 [facility] [id number] Information: ADD [id number] AND DRAW FEE 99 1022 (88918) Immature Grans (Abs) 0.0 {x10E3/uL} (Normal) Range: [...] Microscopic Examination Comments: PATIENT WAS FASTINGPERFORMED BY: LabCoKindred Hospital at WayneVhlksu5919 [facility] [id number] Bacteria None seen (Normal) Mucus Threads Present (Normal) Epithelial Cells (non renal) 0-10 {/hpf} (Normal) Range: 0 - 10 RBC 0-3 {/hpf} (Normal) Range: 0 - 3 WBC 0-5 {/hpf} (Normal) Range: 0 - 5 :49 HgA1C , Office (94576) HgA1C , Office 5.8 % (Normal) Range: 4.6 - 7.1 95-Wvs-33251:49 Blood Glucose , Office (15369) Blood Glucose , Office 142 (Normal) 3-Avd-588900:13 ALFONZO CULTURE-OTHER (97782) Comments: PATIENT NOT FASTINGPERFORMED BY: Haw[facility] LabsThomas Ville 0370670 [facility] [id number] Information: SRC:THRT [id number] Result 1 RRF (Normal) Comments: Routine respiratory hermelindo Upper Respiratory Culture Final report (Normal) 0-Emb-495518:30 Rapid Strep Test, Office (13363) Rapid Strep Test, Office Negative (Normal) 70-Scw-027761:36 URIC ACID BLOOD (21874) Comments: PATIENT NOT FASTINGPERFORMED BY: [facility] [id number] Information: [id number] Uric Acid, Serum 6.6 mg/dL (Normal) Range: 2.5-7.1 Comments: Therapeutic target for gout patients: <6.0 :29 Blood Glucose , Office (15346) Blood Glucose , Office 128 (Normal) :29 HgA1C , Office (25680) HgA1C , Office 5.5 % (Normal) Range: 4.6 - 7.1 63-Spx-469669:11 HgA1C , Office (52950) HgA1C , Office 5.5 % (Normal) Range: 4.6 - 7.1 36-Ois-348032:11 Blood Glucose , Office (81892) Blood Glucose , Office 127 (Normal) :35 Microscopic Examination Comments: PATIENT WAS FASTINGPERFORMED BY: [facility] LabsCorewell Health [facility] Hospital6370 [facility] [id number] Bacteria Few (Normal) Mucus Threads Present (Normal) Cast Type Hyaline casts (Normal) Casts Present {/lpf} (Abnormal) Epithelial Cells (non renal) 0-10 {/hpf} (Normal) Range: 0 - 10 RBC 0-3 {/hpf} (Normal) Range: 0 - 3 WBC 6-10 {/hpf} (Abnormal) Range: 0 - 5 :35 TSH (26715) Comments: PATIENT WAS FASTINGPERFORMED BY: [facility]6370 [facility] [id number] TSH 1.550 {uIU/mL} (Normal) Range: 0.450-4.500 :35 URINALYSIS, W/ MICRO (94468) Comments: PATIENT WAS FASTINGPERFORMED BY: [facility]6370 [facility] [id number] Microscopic Examination See below: (Normal) Nitrite, Urine Negative (Normal) Urobilinogen,Semi-Qn 0.2 mg/dL (Normal) Range: 0.0-1.9 Bilirubin Negative (Normal) Occult Blood Negative (Normal) Ketones Negative (Normal) Glucose Negative (Normal) Protein Negative (Normal) WBC Esterase 1+ (Abnormal) Appearance Clear (Normal) Urine-Color Yellow (Normal) pH 6.5 (Normal) Range: 5.0-7.5 Specific Austin 1.019 (Normal) Range: 1.005-1.030 :35 MICROALBUMIN: CREATININE RATIO Comments: PATIENT WAS FASTINGPERFORMED BY: [facility]6370 [facility] [id number] (68901) AND (37525) Microalb/Creat Ratio 7.8 {mg/g_creat} (Normal) Range: 0.0-30.0 Microalbumin, Urine 17.2 ug/mL (Abnormal) Range: 0.0-17.0 Creatinine, Urine 220.8 mg/dL (Normal) Range: 15.0-278.0 :35 METABOLIC PANEL, COMPREHENSIVE Comments: PATIENT WAS FASTINGPERFORMED BY: [facility]6370 [facility] [id number] (45507) ALT (SGPT) 17 [iU]/L (Normal) Range: 0-40 [...] mg/dL (Normal) Range: 65-99 :35 LIPID PANEL (77298) Comments: PATIENT WAS FASTINGPERFORMED BY: [employer] AG70 [facility] RoamingBetsy [facility] Hospital [id number] LDL/HDL Ratio 1.0 {ratio_units} (Normal) Range: 0.0-3.2 [...] MANUAL DIFF Comments: PATIENT WAS FASTINGPERFORMED BY: [employer] AG70 [facility] [facility] [id number] Information: [id number] (15278) Immature Grans (Abs) 0.0 {x10E3/uL} (Normal) Range: [...] (Normal) Range: 4.0-10.5 :33 HgA1C , Office (33492) HgA1C , Office 5.7 % (Normal) Range: 4.6 - 7.1 :33 Blood Glucose , Office (43265) Blood Glucose , Office 115 (Normal) 29-Jiz-810277:50 KIDNEY Radiology Report See Note (Normal) Comments: [...] 07/19/11 0430 Sign by: Marciano Fountain MD 48-Afq-000333:50 PARATHORMONE (74558) Comments: PATIENT NOT FASTINGPERFORMED BY: LabCoKindred Hospital at WayneWogcau8545 [facility] [id number] PTH, Intact 20 pg/mL (Normal) Range: 15-65 36-Szv-770285:50 Metabolic Panel, Comments: PATIENT NOT FASTINGPERFORMED BY: PRATIMA [facility] Ywzjng7197 [facility] [id number] Information: [id number] Comprehensive (27197) ALT (SGPT) 23 [iU]/L (Normal) Range: 0-40 [...] Glucose, Serum 94 mg/dL (Normal) Range: 65-99 50-Jid-115113:06 Metabolic Panel, Comments: PATIENT NOT FASTINGPERFORMED BY: [employer] Wxntup0643 [facility] [id number] Information: [id number] Comprehensive (43344) ALT (SGPT) 30 [iU]/L (Normal) Range: 0-40 [...] METABOLIC PANEL, Comments: PATIENT WAS FASTINGPERFORMED BY: [employer]6370 [facility] [id number] Information: [id number] COMPREHENSIVE (32602) ALT (SGPT) 27 [iU]/L (Normal) Range: 0-40 [...] Glucose, Serum 85 mg/dL (Normal) Range: 65-99 54-Gfe-71374:17 LIPID PANEL (35070) Comments: PATIENT WAS FASTINGPERFORMED BY: LabCoKindred Hospital at WayneIppbri8257 [facility] [id number] LDL/HDL Ratio 1.1 {ratio_units} (Normal) Range: 0.0-3.2 LDL Cholesterol Calc 46 mg/dL (Normal) Range: 0-99 VLDL Cholesterol Yamilka 28 mg/dL (Normal) Range: 5-40 HDL Cholesterol 41 mg/dL (Normal) Comments: According to ATP-III Guidelines, HDL-C >59 mg/dL is considered anegative risk factor for CHD. Triglycerides 140 mg/dL (Normal) Range: 0-149 Cholesterol, Total 115 mg/dL (Normal) Range: 100-199 :38 Blood Glucose , Office (34710) Blood Glucose , Office 132 (Normal) :38 HgA1C , Office (68300) HgA1C , Office 5.7 % (Normal) Range: 4.6 - 7.1 99-Mbq-031618:01 BILAT SCRN DIGITAL & CAD Radiology Report [...] 1051 S ign by: Anam Larios MD 63-Npy-746117:01 DEXA BONE DENSITY STUDY (HP) Radiology Report [...] FECAL OCCULT HGB ASSAY- tubes sent home (99134) FECAL OCCULT HGB ASSAY, QUAL, 1-3 SIMULTANEOU negative (Normal) :32 HgA1C , Office (97268) HgA1C , Office 8.6 % (Abnormal) Range: 4.6 - 7.1 :32 Blood Glucose , Office (98474) Blood Glucose , Office 324 (Normal) :30 [...] {uIU/mL} (Normal) Range: 0.358-3.74 :45 CULTURE, SPUTUM (87811) Comments: PATIENT NOT FASTINGPERFORMED BY: [facility]Corewell [facility]6370 [facility] [id number] Information: SR[facility] [id number] Result 1 RRF (Normal) Comments: Routine respiratory hermelindo Lower Respiratory Culture Final report (Normal) :48 HgA1C , Office (03622) HgA1C , Office 5.8 % (Normal) Range: 4.6 - 7.1 :48 Blood Glucose , Office (40308) Blood Glucose , Office 124 (Normal) :20 CHEST WITH CONTRAST Radiology Report See Note (Normal) Comments: Exam Number: [id number] CLINICAL:Sarcoidosis, shortness of breath, wheezing CT CHEST [...] allunchanged. Previous cholecystectomy? Reported By: PO MANCILLA 06-Yzg-66986:15 SERUM CRE & GFR EST GFR - AA 65 mL/min (Normal) EST GFR 54 mL/min (Abnormal) CREAT,SERUM 1.1 mg/dL (Abnormal) Range: 0.6-1.0 17-Spv-540739:42 CHEST, PA AND LATERAL (MT) Radiology Report See Note (Normal) Comments: Exam Number: [id number] CHEST X- RAY PA AND LATERAL VIEWS [...] moderate dextroscoliotic curvature. Reported By: Joseph Núñez 72-Vgy-256506:15 MAGNESIUM (20500) Comments: PATIENT NOT FASTINGPERFORMED BY: [employer] AG70 wedgiesFirstHealth [facility] [id number] Magnesium, Serum 2.1 mg/dL (Normal) Range: 1.6-2.6 97-Iqd-065053:15 Renal function Panel Comments: PATIENT NOT FASTINGPERFORMED BY: [employer]6370 [facility] [id number] Information: [id number] (07753) Albumin, Serum 4.7 g/dL (Normal) Range: 3.5-5.5 [...] (Abnormal) Range: 65-99 :46 HgA1C , Office (68571) HgA1C , Office 6.0 % (Normal) Range: 4.6 - 7.1 :46 Blood Glucose , Office (60569) Blood Glucose , Office 140 (Normal) :27 [...] T PROT 7.8 g/dL (Normal) Range: 6.4-8.2 07-Suu-976699:11 CBC with manual diff Comments: PATIENT NOT FASTINGPERFORMED BY: LabCoKindred Hospital at WayneTuevhl9313 [facility] [id number] Information: [id number] (12666) Baso (Absolute) 0.0 {x10E3/uL} (Normal) Range: 0.0-0.2 [...] 3.80-5.10 WBC 9.0 {x10E3/uL} (Normal) Range: 4.0-10.5 73-Gxp-272695:55 Microscopic Examination Comments: PATIENT WAS FASTINGPERFORMED BY: S7 [employer]ip [facility] [id number] BY: [employer] TCHONorth [facility] [id number] Bacteria Few (Normal) Cast Type Hyaline casts (Normal) Mucus Threads Present (Normal) Casts Present {/lpf} (Abnormal) Epithelial Cells (non renal) 0-10 {/hpf} (Normal) Range: 0 - 10 RBC 0-3 {/hpf} (Normal) Range: 0 - 3 WBC 0-5 {/hpf} (Normal) Range: 0 - 5 01-Owy-698599:34 HgA1C , Office (62471) HgA1C , Office 5.9 % (Normal) Range: 4.6 - 7.1 45-Ptq-019256:34 Blood Glucose , Office (10577) Blood Glucose , Office 140 (Normal) 74-Isv-548176:55 TSH (19347) Comments: PATIENT WAS FASTINGPERFORMED BY: S7 [employer]2500 [facility] [id number] BY: ComVibeKindred Hospital at WayneWoybdb3248 [facility] [id number] TSH 0.541 {uIU/mL} (Normal) Range: 0.450-4.500 Comments: Effective December 24, 2009, TSH reference interval for11 - 19 years will be changing to: 0.450 - 4.500 uIU/mLReference interval for all other ages will NOT be affected. :55 URINALYSIS, W/ MICRO Comments: PATIENT WAS FASTINGPERFORMED BY: [facility] HospitalSurface Logix[address] [id number] BY: [employer] spigit [facility] [id number] (72664) Bilirubin Negative (Normal) Microscopic Examination See below: (Normal) Microscopic Examination MICRON (Normal) Comments: Microscopic follows if indicated. Nitrite, Urine Negative (Normal) Occult Blood Negative (Normal) Urobilinogen,Semi-Qn 0.2 mg/dL (Normal) Range: 0.0-1.9 Glucose Negative (Normal) Ketones Negative (Normal) Protein Negative (Normal) WBC Esterase Negative (Normal) Appearance Clear (Normal) pH 6.0 (Normal) Range: 5.0-7.5 Specific [place] 1.020 (Normal) Range: 1.005-1.030 Urine-Color Yellow (Normal) :55 MICROALBUMIN: CREATININE Comments: PATIENT WAS FASTINGPERFORMED BY: [employer] [id number] BY: ComVibeWinslow Indian Health Care CenterKhcczw8900 [facility] [id number] RATIO (03342) AND (26895) Microalb/Creat Ratio 7.1 {mg/g_creat} (Normal) Range: 0.0-30.0 Microalbumin, Urine 8.6 ug/mL (Normal) Range: 0.0-17.0 Creatinine, Urine 120.9 mg/dL (Normal) Range: 15.0-278.0 :55 METABOLIC PANEL, Comments: PATIENT WAS FASTINGPERFORMED BY: [employer] [address] [id number] BY: [facility] CenterintroNetworksChristopher [place]ille 3179770 [facility] [id number] COMPREHENSIVE (99811) ALT (SGPT) 24 [iU]/L (Normal) Range: 0-40 [...] Glucose, Serum 105 mg/dL (Abnormal) Range: 65-99 25-Vtv-917694:55 LIPOPROTEIN, BLD, BY NMR Comments: PATIENT WAS FASTINGPERFORMED BY: Sarah [employer] Jsw7005 Lavelle ZambranoFormerly [facility] [id number] BY: PRATIMA LabCore[facility]6370 [facility] [id number] Information: [id number] (99336) Large VLDL-P 2.9 nmol/L (Abnormal) Comments: Small [...] 1599High 1600 - 2000Very high > 2000. 06-Nxm-676113:55 CBC WITH MANUAL DIFF Comments: PATIENT WAS FASTINGPERFORMED BY: Sarah [employer] Awv2208 [facility] [id number] BY: PRATIMA LabCoKindred Hospital at WayneKqninn5166 [facility] [id number] (92955) Baso (Absolute) 0.0 {x10E3/uL} (Normal) Range: 0.0-0.2 [...] KIDNEY DISEASE, STAGE IV (SEVERE) : Reviewed Continuous Churn Buttermaker Letter Indication: CHRONIC KIDNEY DISEASE, STAGE IV (SEVERE) Diabetic autonomic neuropathy associated with type 2 diabetes mellitus : Follow up in 3 months Indication: Diabetic autonomic neuropathy associated with type 2 diabetes mellitus Chronic kidney disease, stage III (moderate) : Reviewed Continuous Churn Buttermaker Letter Indication: Chronic kidney disease, stage III [...] sequela Aspiration of food, sequela : Reviewed Continuous Churn Buttermaker Letter- sibila and bronch Indication: Aspiration of [...] Diagnostic Tests Indication: Sarcoidosis Sarcoidosis : Reviewed Continuous Churn Buttermaker Letter Indication: Sarcoidosis DM (diabetes mellitus), type 1, uncontrolled, with renal complications : Follow up in 3 months Indication: DM (diabetes mellitus), type 1, uncontrolled, with renal complications DM (diabetes mellitus), type 1, uncontrolled, with renal complications : Reviewed Lab Indication: DM (diabetes mellitus), type 1, uncontrolled, with renal complications Asthma : Continue Current Prescription(s) Indication: Asthma Asthma : Reviewed Continuous Churn Buttermaker Letter Indication: Asthma CHRONIC KIDNEY DISEASE, STAGE IV (SEVERE) : Reviewed Continuous Churn Buttermaker Letter Indication: CHRONIC KIDNEY DISEASE, STAGE IV [...] GERD (gastroesophageal reflux disease) Asthma : Reviewed Continuous Churn Buttermaker Letter Indication: Asthma Asthma : Continue Current Prescription(s) Indication: Asthma DM (diabetes mellitus), type 1, uncontrolled, with renal complications : Follow up in 3 months- do ekg Indication: DM (diabetes mellitus), type 1, uncontrolled, with renal complications Chronic kidney disease, stage III (moderate) : Reviewed Continuous Churn Buttermaker Letter Indication: Chronic kidney disease, stage III [...] typeII,controlled, renal comp Atrial fibrillation : Reviewed Continuous Churn Buttermaker Letter Indication: Atrial fibrillation Hypercholesteremia : Reviewed [...] Indication: Impacted fracture Impacted fracture : Reviewed Continuous Churn Buttermaker Letter Indication: Impacted fracture Hypertension with renal [...] kidney disease, stage III (moderate) : Reviewed Continuous Churn Buttermaker Letter- Dr Ribeiro Indication: Chronic kidney disease, [...] kidney disease, stage III (moderate) : Reviewed Continuous Churn Buttermaker Letter Indication: Chronic kidney disease, stage III [...] kidney disease, stage III (moderate) : Reviewed Continuous Churn Buttermaker Letter Indication: Chronic kidney disease, stage III [...] kidney disease, stage III (moderate) : Reviewed Continuous Churn Buttermaker Letter Indication: Chronic kidney disease, stage III [...] kidney disease, stage III (moderate) : Reviewed Continuous Churn Buttermaker Letter-- dr ribeiro Indication: Chronic kidney disease, [...] kidney disease, stage III (moderate) : Reviewed Continuous Churn Buttermaker Letter: Dr ribeiro Indication: Chronic kidney disease, stage III (moderate) Diabetes mellitus type II, controlled : *Diabetes Education Indication: Diabetes mellitus type II, controlled Hypercholesteremia : Cholesterol mgmt Indication: Hypercholesteremia Hypertension with renal disease : Diet, Exercise, and Wt loss Indication: Hypertension with renal disease Hypertension with renal disease : HTN/CAD Red Flags Indication: Hypertension with renal disease Aspiration pneumonia : Reviewed Continuous Churn Buttermaker Letter Indication: Aspiration pneumonia Aspiration pneumonia : [...] kidney disease, stage III (moderate) : Reviewed Continuous Churn Buttermaker Letter Indication: Chronic kidney disease, stage III [...] kidney disease, stage III (moderate) : Reviewed Continuous Churn Buttermaker Letter- w/u in progress Indication: Chronic kidney [...] reflux disease) Planned Observations METABOLIC PANEL, COMPREHENSIVE (81916)Indication: Medication monitoring encounter On: 5-Oga-579936:10 Request Parathyroid Hormone-related Peptide (PTH-rP) (70760)Indication: Hypercalcemia On: :40 Request Comments: send copy dr ribeiro CALCIUM SERUM (16711)Indication: Hypercalcemia On: :40 Request Comments: send copy to dr ribeiro ELECTROLYTES, 24 HOUR URINE (05381)Indication: Hypercalcemia On: 3-Ivo-871926:49 Request POTASSIUM SERUM (21439)Indication: Hypercalcemia On: 5-Eyy-510301:48 Request Parathyroid Hormone-related Peptide (PTH-rP) (43030)Indication: Hypercalcemia On: :48 Request CALCIUM SERUM (19077)Indication: Hypercalcemia On: 7-Kqq-228264:48 Request CALCIUM URINE 93082 (68638)Indication: Hypercalcemia On: :06 Request Comments: 24 hr urine ELECTROLYTES, 24 HOUR URINE (16387)Indication: Hypercalcemia On: :06 Request FECAL OCCULT- Tubes sent home (63453)Indication: Encounter for screening for malignant neoplasm of colon (Renamed from Special screening for malignant neoplasms, colon) On: 05-Iws-381193:47 Request Lipid Panel (36455)Indication: Hypercholesteremia On: 1-Kmt-573797:02 Request CALCIFIDIOL (55691) VIT D 25Indication: FATIGUE On: 0-Pgg-926738:38 Request Folate (32536)Indication: FATIGUE On: 3-Ubv-891683:38 Request VITAMIN B-12 (CYANOCOBALAMIN) (92560)Indication: FATIGUE On: 8-Gfn-582719:38 Request TSH (01292)Indication: FATIGUE On: :38 Request SED RATE ERYTHROCYTE (50882)Indication: FATIGUE On: :38 Request RHEUMATOID FACTOR-QUANT (76834)Indication: FATIGUE On: :38 Request METABOLIC PANEL, COMPREHENSIVE (98991)Indication: FATIGUE On: :38 Request C-REACTIVE PROTEIN (25243)Indication: FATIGUE On: :38 Request CBC (AUTO) (29549)Indication: FATIGUE On: :38 Request HEIDI (ANTINUCLEAR ANTIBODY) (52917)Indication: FATIGUE On: :38 Request CULTURE, SPUTUM (17015)Indication: Cough On: 7-Ift-456936:08 Request Metabolic Panel, Comprehensive (36900)Indication: Diabetes mellitus type 2, uncontrolled, without complications On: 33-Kpa-093255:21 Request FECAL OCCULT HGB ASSAY- tubes sent home (56225)Indication: Encounter for Medicare annual wellness exam On: 46-Ddy-17154:58 Request CALCIFIDIOL (71152) VIT D 25Indication: Vitamin D deficiency On: 17-Vha-08266:48 Request MAGNESIUM (79242)Indication: Hypomagnesemia On: 03-Wmh-94381:47 Request URINE ALFONZO CULTURE (KAITLIN COL COUNT) (55383)Indication: Abdominal pain On: 74-Hzb-239404:37 Request Urinalysis, Office (09194)Indication: Abdominal pain On: 43-Wxp-571252:37 Request FECAL OCCULT HGB ASSAY- tubes sent home (18526)Indication: Encounter for Medicare annual wellness exam On: 90-Lqy-17649:56 Request Metabolic Panel, Basic (81188)Indication: Chronic kidney disease, stage III (moderate) On: 71-Mqx-998700:11 Request POTASSIUM SERUM (00114)Indication: Hypokalemia On: 10-Mkg-34602:13 Request TSH (69645)Indication: Diabetes mellitus type II, controlled On: 9-Ofs-060013:01 Request URINALYSIS, W/ MICRO (89221)Indication: Diabetes mellitus type II, controlled On: 2-Rxk-949206:01 Request MICROALBUMIN: CREATININE RATIO (49515) AND (41665)Indication: Diabetes mellitus type II, controlled On: : Request METABOLIC PANEL, COMPREHENSIVE (60308)Indication: Diabetes mellitus type II, controlled On: : Request LIPID PANEL (71513)Indication: Diabetes mellitus type II, controlled On: Request CBC WITH MANUAL DIFF (74898)Indication: Diabetes mellitus type II, controlled On: Request LIPOPROTEIN, BLD, BY NMR (09053)Indication: Hypercholesteremia On: : Request LIPID PANEL (35472)Indication: Hypercholesteremia On: : Request Comments: do in 3 months HEPATIC FUNCTION PANEL (84626)Indication: Hypercholesteremia On: Request LIPID PANEL (87394)Indication: Hypertension, benign On: :33 Request Planned Encounters Medical; 3 Month FU - On: 08-Nov-2018 8:45 Comprehensive Internal Medicine Veronica Oquendo DO, DO, Kathleen Planned Procedures Solu -Medrol Injection, 125 mg On: 18-Aug-2018 Intent (J2930)By: Kassandra Fortune CNP Flu Vaccine (Quadrivalent) 19734Ps: On: 09-Aug-2018 Intent Veronica Oquendo DO, DO, Comments: Lot #[id number]-L dltd, IMDose prefilled syringegiven by:ANTOINE Munoz reviewed and ABN signed Veronica ELECTROCARDIOGRAM, COMPLETE (ECG) On: 09-Aug-2018 Intent (06153)By: Veronica Oquendo DO Comments: nsr - RBBB - no t acute Veronica Oquendo DO TTDB-PS-GVXL BEHAVIORAL COUNSELING On: 09-Apr-2018 Intent FOR OBESITY, 15 MINUTES (G0447)By: Veronica Oquendo DO, DO, Kathleen SCREENING DIGITAL TOMOSYNTHESIS OF On: 09-Apr-2018 Intent BREAST (39553)By: Veronica Oquendo DO, DO, Kathleen Solu- Medrol Injection, 125mg On: 01-Jan-2018 Intent (J2930)By: Veronica Oquendo DO Comments: 125mg - 1 [id number]/2020R hip, IMJoaquina Stanton, FINANCIAL SERVICES ASSOCIATE Veronica Oquendo DO CHEST XRAY, PA & LATERAL (76246)By: On: 23-Dec-2017 Intent Veronica Oquendo DO, DO, Kathleen CHEST XRAY, PA & LATERAL (22560)By: On: 22-Dec-2017 Intent Kelsea Lund Aerosol Treatment (78259)By: On: 22-Dec-2017 Intent Kelsea Lund Comments: Still has wheezing in right lobe after aerosol treatment. Aerosol Treatment (22727)By: Azra On: 25-Nov-2017 Veronica Pabon DO, DO, Kathleen Comments: more a/e less reactivity 0-no wheeze but still that Rub in RLL area Solu- Medrol Injection, 125mg On: 25-Nov-2017 Intent (J2930)By: Veronica Oquendo DO Comments: [id number], 1vialMLONG FINANCIAL SERVICES ASSOCIATE Veronica Oquendo DO Solu- Medrol Injection, 125mg On: 27-Oct-2017 Intent (J2930)By: Kelsea Lund Comments: solumedrol 125mg injectionlot: [id number]: 10/2019L GMpt tolerated wellAD FINANCIAL SERVICES ASSOCIATE Aerosol Treatment (53808)By: On: 27-Oct-2017 Intent Kelsea Lund Comments: expiratory wheeze after albuterol aerosol treatment. EKG (66026)By: Veronica Oquendo DO On: 14-Oct-2017 Intent Veronica Oquendo DO Comments: nsr no acute chg- RBBB Aerosol Treatment (20850)By: Azra On: 14-Aug-2017 Veronica Pabon DO, DO, Kathleen Comments: no noise and more a/e Solu- Medrol Injection, 125mg On: 14-Aug-2017 Intent (J2930)By: Veronica Oquendo DO Comments: lot [id number] mgright gmIMas, FINANCIAL SERVICES ASSOCIATE Veronica Oquendo DO Solu- Medrol Injection, 125mg On: 05-Aug-2017 Intent (J2930)By: Veronica Oquendo DO Comments: Lot:[id number]:11/17Dose:125mgRoute:imSite:r hipGiven By:MICHAEL signed Veronica Oquendo DO Flu Vaccine (Quadrivalent) 83937Tc: On: 28-Jul-2017 Intent Veronica Oquendo DO, DO, Kathleen ELECTROCARDIOGRAM, COMPLETE (ECG) On: 28-Jul-2017 Intent (55060)By: Veronica Oquendo DO, DO, Kathleen IV Needle placement (39522)By: On: 14-Jul-2017 Intent Kassandra Fortune CNP ORTHOSTATIC BLOOD PRESSURE On: 14-Jul-2017 Intent ASSESSMENT (04233)By: Kassandra Fortune CNP INFUSION, NORMAL SALINE SOLUTION , On: 14-Jul-2017 Intent 1000 CC (Special Coverage Instructions Apply. See MCM: 2049) (J7030)By: Kassandra Fortune CNP Solu -Medrol Injection, 125 mg On: 22-Jun-2017 Intent (J2930)By: Kelsea Lund Solu- Medrol Injection, 125mg On: 17-Apr-2017 Intent (J2930)By: Veronica Oquendo DO Comments: Lot:[id number]:04/2019Dose:125mgRoute:imSite:l armGiven By:NOE signed Veronica Oquendo DO DEXA SCAN AXIAL SKELETON (44256)By: On: 06-Apr-2017 Intent Veronica Oquendo DO, DO, Kathleen SCREENING DIGITAL TOMOSYNTHESIS OF On: 06-Apr-2017 Intent BREAST (41627)By: Veronica Oquendo DO, DO, Kathleen Flu Vaccine (Quadrivalent) 96938Oz: On: 20-Aug-2016 Intent Veronica Oquendo DO, DO, Comments: FLUlot: [id number]:05/29/17site:Lt deltoidroute:IMdose:.5mlVALENTINA MOBLEY Solu- Medrol Injection, 125mg On: 20-Aug-2016 Intent (J2930)By: Veronica Oquendo DO Comments: solumedrollot:[id number]:03/18site:lt glutroute:IMdose:125mgDVALENTINA Calderón DO, Kathleen Solu -Medrol Injection, 125 mg On: 13-Aug-2016 Intent (J2930)By: Kassandra Fortune CNP Comments: Lot:[id number]:02/2019Dose:125mgRoute:imSite:l hip Given By:NOE signed Aerosol Treatment (60707)By: Irma On: 13-Aug-2016 Intent Clarisse SCHWARZ Radiology - Shoulder - LeftBy: Devika On: 04-Jul-2016 Intent Kassandra LUU Radiology - Knee - LeftBy: Devika On: 04-Jul-2016 Intent Kassandra LUU Comments: send result to Dr. Delgadillo Toradol Injection, 30 mg (J1885)By: On: 04-Jul-2016 Intent Kassandra Fortune CNP Aerosol Treatment (43587)By: Azra On: 12-May-2016 Veronica Pabon DO, DO, Kathleen Comments: less cough and more a./e- no wheeze Solu- Medrol Injection, 125mg On: 12-May-2016 Intent (J2930)By: Veronica Oquendo DO Comments: lot: [id number]: 12/18site/route: RGM/IMamt: 2mLVIS signed when applicableChelsea, Veronica Gillis DO CT - Chest (IV Contrast Needed)By: On: 09-May-2016 Intent Veronica Oquendo DO, DO, Kathleen Radiology - Chest- PA and LatBy: On: 08-May-2016 Intent Veronica Oquendo DO, DO, Veronica PNEUM VAC ADLT/IMUMNOSPR, SBC/INTRM On: 21-Apr-2016 Intent (04229)By: Veronica Oquendo DO Comments: pneumovaxlot:[id number]:09/06/17site:lt deltroute:IMD.VALENTINA Dunlap DO, Kathleen HELW-ON-JQCG BEHAVIORAL COUNSELING On: 21-Apr-2016 Intent FOR OBESITY, 15 MINUTES (G0447)By: Veronica Oquendo DO, DO, Kathleen MAMMOGRAM, SCREENING, BOTH BREAST On: 21-Apr-2016 Intent (78648)By: Veronica Oquendo DO, DO, Kathleen Radiology - Knee - RightBy: Azra On: 14-Apr-2016 Intent Veronica JEAN-BAPTISTE DO, Kathleen Radiology - Knee - LeftBy: Azra On: 14-Apr-2016 Veronica Pabon DO, DO, Kathleen ADMINISTRATION OF INFLUENZA VIRUS On: 09-Aug-2015 Intent VACCINE (G0008)By: Veronica Oquendo DO, DO, Kathleen Flu Vaccine (Quadrivalent) 37549Qk: On: 09-Aug-2015 Intent Veronica Oquendo DO, DO, Comments: Lot:[id number]:02/27/16Dose:0.5mLRoute:IMSite:L DltdGiven By:NOE signed Veronica Solu -Medrol Injection, 125 mg On: 03-Aug-2015 Intent (J2930)By: Veronica Oquendo DO Comments: Lot:[id number]:12/2017Dose:125mgRoute:imSite:l armGiven By:NOE signed Veronica Oquendo DO Aerosol Treatment (57394)By: Azra On: 03-Aug-2015 Veronica Pabon DO, DO, Kathleen Comments: more a/e after aerosol EKG (35367)By: Veronica Oquendo DO On: 19-Jul-2015 Veronica Wren DO Comments: ming botello -- no new twave chg when compared to old ones Aerosol Treatment (62282)By: Azra On: 30-Apr-2015 Intent , Veronica Jurado DO Radiology - Chest- PA and LatBy: On: 27-Apr-2015 Intent Veronica Oquendo DO, DO, Kathleen DEXA SCAN AXIAL SKELETON (61839)By: On: 17-Apr-2015 Intent Veronica Oquendo DO, DO, Kathleen INTENSIVE BEHAVIORAL THERAPY TO On: 17-Apr-2015 Intent REDUCE CARDIOVASCULAR DISEASE RISK, INDIVIDUAL, MTQH-HF-XCMF, ANNUAL, 15 MINUTES (G0446)By: Veronica Oquendo DO, DO, Kathleen FISA-JU-QKZP BEHAVIORAL COUNSELING On: 17-Apr-2015 Intent FOR OBESITY, 15 MINUTES (G0447)By: Veronica Oquendo DO, DO, Kathleen MAMMOGRAM, SCREENING, BOTH BREAST On: 17-Apr-2015 Intent (37351)By: Veronica Oquendo DO, DO, Kathleen EKG (21067)By: Veronica Oquendo DO On: 16-Aug-2014 Intent Veronica Oquendo DO Comments: nsr nonspecif st and t wave chg old not new Radiology - Chest- PA and LatBy: On: 15-May-2014 Intent Azra DOVeronica Azra DO, Veronica Toradol Injection, 30 mg (J1885)By: On: 12-May-2014 Intent Kassandra Fortune CNP Comments: Lot:[id number]:10/30/15Dose:30mgRoute:imSite:r hipGiven By:NOE signed Eprescribed prescriptions (G8553)By: On: 01-May-2014 Intent Veroinca Oquendo DO DO, Veronica MAMMOGRAM, SCREENING, BOTH BREASTS On: 18-Apr-2014 Intent (79805)By: Veronica Oquendo DOon DOVeronica ACRF-AU-NWLY BEHAVIORAL COUNSELING On: 18-Apr-2014 Intent FOR OBESITY, 15 MINUTES (G0447)By: Veronica Oquendo DO Azra DO Veronica Eprescribed prescriptions (G8553)By: On: 11-Apr-2014 Intent Veronica Oquendo DO Azra DO, Veronica Pulse Oximetry (66571)By: Azra JEAN-BAPTISTE, On: 11-Apr-2014 Intent Veronica Oquendo DO, Veronica Aerosol Treatment (31870)By: Devika On: 27-Sep-2013 Intent BELL Dasia FBKI-UF-CPAR BEHAVIORAL COUNSELING On: 12-Sep-2013 Intent FOR OBESITY, 15 MINUTES (G0447)By: Veronica Oquendo DO Azra DO, Veronica MAMMOGRAM, SCREENING, BOTH BREASTS On: 12-Sep-2013 Intent (76406)By: Kelsea Richards LPN DRAIN/INJECT MAJOR JOINT OR BURSA On: 24-Aug-2013 Intent ()By: Kelsea Richards LPN Comments: [id number] 08/13 DRAIN/INJECT MAJOR JOINT OR BURSA On: 24-Aug-2013 Intent ()By: Kelsea Richards LPN Comments: lt knee lot [id number] exp 08/13 DRAIN/INJECT MAJOR JOINT OR BURSA On: 18-Aug-2013 Intent ()By: Kelsea Richards LPN Comments: lt knee lot [id number] exp 07/13 DRAIN/INJECT MAJOR JOINT OR BURSA On: 18-Aug-2013 Intent ()By: Kelsea Richards LPN Comments: rt knee lot [id number] exp 07-13 FLU VAC, SPLIT, >3 YEARS, INTRAMUSC On: 10-Aug-2013 Intent ([id number])By: Veronica Oquendo DO Comments: lot [id number] 2013site/route L sabas, IMamt 0.5mlVIS and ABN signed when applicableSTARR Lui DO, Kathleen ADMINISTRATION OF INFLUENZA VIRUS On: 10-Aug-2013 Intent VACCINE ([id number])By: Sania Ritchie DRAIN/INJECT MAJOR JOINT OR BURSA On: 10-Aug-2013 Intent ()By: Kelsea Richards LPN Comments: euflexxa injection lt knee lot [id number] exp 07/13 DRAIN/INJECT MAJOR JOINT OR BURSA On: 10-Aug-2013 Intent ()By: Kelsea Richards LPN Comments: euflexxa injection rt knee lot [id number] exp 07/13 Solu- Medrol Injection, 125mg On: 03-Aug-2013 Intent ([id number])By: Veronica Oquendo DO Comments: injected over Left sciatic area - most tender spot marked - no bleed pt tolerated well -- 08/03/13 lot # Veronica Oquendo DO Eprescribed prescriptions ([id number])By: On: 03-Aug-2013 Intent Sania Ritchie Kenalog Injection, 10 mgm On: 21-Jul-2013 Intent ([id number])By: Veronica Oquendo DO Comments: used 40 mglot: [id number]: 02/11site/route: RGM/IMamt: 40VIS signed when applicableSTARR Lui DO, Kathleen Nuclear Stress Test/Stress On: 21-Jul-2013 Intent SPECT/AdenosineBy: Azra JEAN-BAPTISTE, Comments: needs adenosine - bc 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 Veronica Jurado DO Echo CompleteBy: Veronica Oquendo DO On: 21-Jul-2013 Intent Veronica Oquendo DO Spirometry ([id number])By: Azra JEAN-BAPTISTE, On: 21-Jul-2013 Intent Veronica Jurado DO Comments: mild obstruction EKG ([id number])By: Veronica Oquendo DO On: 21-Jul-2013 Intent Veronica Oquendo DO Comments: nsr no acute chg - t wave inversion ant septal leads - st depression in lateral precordial leads [id number] BEHAVIORAL COUNSELING On: 21-Jul-2013 Intent FOR OBESITY, [...] Intent (J2930)By: Kassandra Fortune CNP Comments: Lot: [id number]: 12/2015Amt: 125mgRoute: IMSite: RUOQ glutealGiven by: CHONG Canas EKG ([id number])By: Veronica Oquendo DO On: 11-Apr-2013 Intent Veronica Oquendo DO Comments: nsr no acute chg the same nonspecific st flattening in v1v2 are presnet on old ekg's Spirometry ([id number])By: Azra JEAN-BAPTISTE, On: 11-Apr-2013 Intent Veronica Jurado DO Comments: such poor technique cnt report a FEV Eprescribed prescriptions ([id number])By: On: 16-Sep-2012 Intent Kelsea Richards LPN FLU VAC, SPLIT, >3 YEARS, INTRAMUSC On: 02-Sep-2012 Intent ([id number])By: Veronica Oquendo DO Comments: Lot #[id number]-left deltoidgiven by: CHONG Patrick DO, Kathleen ADMINISTRATION OF INFLUENZA VIRUS On: 02-Sep-2012 Intent VACCINE (G0008)By: Veronica Oquendo DO, DO, Kathleen IKHE-IF-KWGY BEHAVIORAL COUNSELING On: 02-Sep-2012 Intent FOR OBESITY, 15 MINUTES (G0447)By: Veronica Oquendo DO, DO, Kathleen SPECIMEN HNDLNG/TRNSPRT, OFFC > LAB On: 04-Aug-2012 Intent ([id number])By: Suki Gutiérrez LPN MAMMOGRAM, SCREENING, BOTH BREASTS On: 28-Jul-2012 Intent ([id number])By: Veronica Oquendo DO, DO, Kathleen EKG ([id number])By: Veronica Oquendo DO On: 17-Jun-2012 Intent Veronica Oquendo DO Comments: nsr no acute chg Overnight Pulse Ox([id number])By: Mast On: 11-May-2012 Intent Suzy RUIZ Spirometry ([id number])By: Azra JEAN-BAPTISTE, On: 17-Mar-2012 Intent Veronica Jurado DO Comments: poor technique- stable -- FLU VAC, SPLIT, >3 YEARS, INTRAMUSC On: 01-Sep-2011 Intent ([id number])By: Kelsea Richards LPN Comments: given at health clinic not here Eprescribed prescriptions ([id number])By: On: 29-Jul-2011 Intent Kelsea Richards LPN Ultrasound - RenalBy: Devika LUU, On: 15-Jul-2011 Intent Dasia PNEUM VAC ADLT/IMUMNOSPR, SBC/INTRM On: 09-May-2011 Intent ([id number])By: Veronica Oquendo DO, DO, Kathleen IMMUNIZ ADMNIN, 1 VAC, SNGL/COMBO On: 09-May-2011 Intent ([id number])By: Veronica Oquendo DO, DO, Kathleen DXA, BONE DENSITY, AXIAL SKELETON On: 09-May-2011 Intent ([id number])By: Kelsea Richards LPN MAMMOGRAM, SCREENING, BOTH BREASTS On: 09-May-2011 Intent ([id number])By: Kelsea Richards LPN Clinical Breast Examination On: 09-May-2011 Intent (G0101)By: Kelsea Richards LPN TDAP VACCINE >7 IM ([id number])By: Azra On: 16-Apr-2011 Veronica Pabon DO, DO, Kathleen Comments: Lot #[id number]-right deltoidgiven by: Alisa Vee LPN PULMONARY STRESS TEST/SIMPLE On: 04-Mar-2011 Intent ([id number])By: Veronica Oquendo DO Comments: pt unable to complete fulol test due to shortess of breath. Pt completed 3 minutes of assessment. hh Veronica Oquendo DO EKG ([id number])By: Veronica Oquendo DO On: 03-Mar-2011 Intent Veronica Oquendo DO Comments: nsr no acute changes Pulse Oximetry ([id number])By: Devika LUU, On: 29-Jan-2011 Intent Kassandra Vargas Solu- Medrol Injection, 125mg On: 29-Jan-2011 Intent ([id number])By: Kassandra Fortune CNP Pulse Oximetry ([id number])By: Bernardo RN, On: 29-Jan-2011 Intent Suzy IMMUNIZ ADMNIN, 1 VAC, SNGL/COMBO On: 04-Sep-2010 Intent ([id number])By: Lisa Blood FLU VAC, SPLIT, >3 YEARS, INTRAMUSC On: 04-Sep-2010 Intent ([id number])By: Lisa Blood Comments: Lot:[id number]:02/2011Dose:0.5MLRoute:IMSite:left deltoidGiven by: VALENTINA Saleem CT - Chest (IV Contrast Needed)By: On: 20-Jun-2010 Intent Veronica Oquendo DO, DO, Kathleen Echo CompleteBy: Veronica Oquendo DO On: 20-Jun-2010 Intent Veronica Oquendo DO Radiology - ChestBy: Kassandra Fortune CNP On: 27-May-2010 Intent E Aerosol Treatment ([id number])By: Devika On: 27-May-2010 Kassandra Pabon CNP Pulse Oximetry ([id number])By: Devika LUU On: 27-May-2010 Intent Dasia Ultrasound - LiverBy: Azra JEAN-BAPTISTE, On: 07-Mar-2010 Intent Veronica Jurado DO Spirometry ([id number])By: Azra JEAN-BAPTISTE, On: 07-Mar-2010 Intent Veronica Jurado DO Comments: mild obstrucition EKG ([id number])By: Veronica Oquendo DO On: 14-Dec-2009 Intent Veronica Oquendo DO Comments: nsr poor R wave progression-- will request old ekg to compare Spirometry ([id number])By: Azra JEAN-BAPTISTE, On: 14-Dec-2009 Intent Veronica Jurado DO Comments: mild obstructive disease but some technique off Planned Medications INFUSION, NORMAL SALINE SOLUTION , 1000 CC Ordered: 14-Jul-2017 Pending Ciesa JALOUSIE INSTALLER, Dasia INJECTION, KETOROLAC TROMETHAMINE, PER 15 MG Ordered: 12-May-2014 Pending Ciesa JALOUSIE INSTALLER, Dasia INJECTION, KETOROLAC TROMETHAMINE, PER 15 MG Ordered: 04-Jul-2016 Pending Ciesa JALOUSIE INSTALLER, Dasia INJECTION, METHYLPREDNISOLONE SODIUM SUCCINATE, UP TO 125 MG Ordered: 29-Jan-2011 Pending Ciesa JALOUSIE INSTALLER, Dasia INJECTION, METHYLPREDNISOLONE SODIUM SUCCINATE, UP TO [...] TO 125 MG Ordered: 13-Aug-2016 Pending Ciesa JALOUSIE INSTALLER, Dasia INJECTION, METHYLPREDNISOLONE SODIUM SUCCINATE, UP TO 125 MG Ordered: 12-May-2016 Pending Azra DO, Veronica Azra DO, Veronica INJECTION, METHYLPREDNISOLONE SODIUM SUCCINATE, UP TO 125 MG Ordered: 03-Aug-2015 Pending Zara DO, Veronica Azra DO, Veronica INJECTION, METHYLPREDNISOLONE SODIUM SUCCINATE, UP TO 125 MG Ordered: 03-Aug-2013 Pending Azra DO, Veronica Azra DO, Veronica INJECTION, METHYLPREDNISOLONE SODIUM SUCCINATE, UP TO 125 MG Ordered: 03-Jun-2013 Pending Ciesa JALOUSIE INSTALLER, Dasia INJECTION, METHYLPREDNISOLONE SODIUM SUCCINATE, UP TO 125 MG Ordered: 01-Jan-2018 Pending Azra DO, Veronica Azra DO, Veronica INJECTION, METHYLPREDNISOLONE SODIUM SUCCINATE, UP TO 125 MG Ordered: 18-Aug-2018 Pending Ciesa JALOUSIE INSTALLER, Dasia INJECTION, TRIAMCINOLONE ACETONIDE, NOT OTHERWISE SPECIFIED, [...] foot : DISCONTINUED - RENAL FUNCTION PANEL ([id number]) Indication: Gout of right foot Gout of right foot : DISCONTINUED - URIC ACID BLOOD ([id number]) Indication: Gout of right foot Hypertension with renal disease : DISCONTINUED - MAGNESIUM (81789) Indication: Hypertension with renal disease Hypertension with renal disease : DISCONTINUED - POTASSIUM SERUM (21754) Indication: Hypertension with renal disease Diarrhea : [...] The patient does have durable power of grass farmer and living will. The patient has noticed nothing from the geriatic depression scale. Other providers contributing to the patient's care are field interviewer, web content director, complaint adjuster and other:.Encounter Diagnosis: BMI 38.0-38.9,adult, Nonsmoker, Annual [...] The patient does have durable power of grass farmer and livin g will. The patient has noticed lack of energy. Other providers contributing to the patient's care are gastrologist, complaint adjuster and other: (pain management, podiatry).Encounter Diagnosis: Body [...] patient does not have durable power of grass farmer or living will. The patient has noticed nothing from the geriatic depression s angelica. Other providers contributing to the patient's care are complaint adjuster and other:.Encounter Diagnosis: Annual Medicare Phyiscal WITHOUT [...] patient does not have durable power of grass farmer or living will. The patient has noticed [...] care from a hospital (inhaled hamburger and [place] rice and she was in hosp from [...] providers contributing to the patient's care are web content director (margaret saravia), complaint adjuster (dr. hayes) and other: (dr. zincdr. leedr. [...] providers contributing to the patient's care are web content director (says has an appt with Dr Hammer this month at [facility] gastrologist (Michele), complaint adjuster (Dr Hayes) and urologist (Dr Mayes).Encounter Diagnosis: [...]
--- OUTSIDE RECORDS SUMMARY | 2018-12-08 05:43 | XMS RPT_ITS | Continuity of Care Document ---
:1950 Author Organization [facility] Address [address] [facility] [address] [place] [address] Phone Care Team Providers Name Role Phone [...] Active Asthma (J45.909, 493.90) Comments: sees Dr Gibbosn Status: Active Atrial fibrillation (I48.91, 427.31) Comments: occurred s/p surgery - saw cardio in [place] had stress test and it was normal [...] after 2weeksdriving to see Dr Ribeiro in [place] Status: Active CHRONIC OBSTRUCTIVE ASTHMA WITH (ACUTE) [...] Quantity: 3 {Bottle} Refills: 3 Ordered:25-Aug-2018 Cade Oquenod DO, DO, Kathleen Start : 25-Aug-2018 Active [...] DO, DO, Kathleen Start : 25-Aug-2018 Active Delta 5-325 MG Oral Tablet 1 (one) Tablet [...] DO, Kathleen Start : 25-Aug-2018 Active Pen [place] 3/16 31G X 5 MM Miscellaneous 1 [...] End : 10-Apr-2016 Inactive VITAMIN D (ERGOCALCIFEROL), 89128EVIB (Oral Capsule) 1 (one) Capsule daily for [...] Discontinued Comments:Dispense mini needles CALCIUM + D, [phone]-MG-IU (PO Cap) 2 qd for 0 days [...] Visit Report Result: Comments: See Note; NOTES: [facility] Orthopaedics AND Sports Medicine [address] [place] [address] OFFICE VISIT Date of Service: 05/11/18 MR#: [id number] Acct: [id number] Name: SUGEY LING Rep #: [id number] : 1950 Provider: Tia Chirinos MD Age/Sex: 67/F Location: [facility] [place] [place] Status: Signed Intake Intake Visit Reasons: LOW [...] [History Confirmed 01/07/18] Fluticasone 0.05% [Flonase Nasal Carbon] 1 spray NASAL DAILY 06/21/17 [History Confirmed 01/07/18] Fluticasone/Salmeterol [Advair 500/50 Mcg Diskus] 1 puff INHALATION BID 06/21/17 [History Confirmed 01/08/18] Furosemide [Lasix] 40 mg PO DAILY PRN PRN 06/21/17 [History Confirmed 01/07/18] Insulin Detemir [Levemir (BKC)] 24 units SC QHS 06/21/17 [History Con firmed 01/08/18] [place]-3S/Dha/Epa/Fish Oil [Fish Oil 1,200 mg Softgel] 1 ea PO DAILY 06/21/17 [History Confirmed 01/07/18] Pantoprazole Sodium [Protonix] 40 mg PO BID 06/21/17 [History Confirmed 8] Tiotropium [place] [Spiriva Respimat] 2 puff IH DAILY 06/21/17 [History Confirmed 01/08/18] Tramadol HCl [Ultram] 50 mg PO BID 06/21/17 [History Confirmed 01/07/18] Albuterol Inhaler [Ventolin Hfa (S P)] 1 - 2 puff INHALATION Q4H PRN PRN 12/04/17 [History Confirmed 01/08/18] Sour Scott Extract [Tart Scott Extract] 1,000 mg PO DAILY 01/07/18 [History Confirmed 01/07/18] [facility] Social History Smoki ng Status: Former [...] nothin g. 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 who would not clear her for a [...] MD Cosigner Signature: Date (if applicable) CC: Chetna Medina MD 20-May-2018 SCREENING MAMM (CAD), BILAT Result: Comments: See Note; NOTES: [facility] Imaging Services [address] [place] [address] SCREENING MAMM (CAD), BILAT MR#: [id number] Acct: [id number] Name: SUGEY LING Rep #: [id number] : 1950 F 67 From: Anam Larios MD PCP: Veronica Oquendo DO Status: REG CLI Study: SCREENING MAMM (CAD), BILAT Date of Exam: 05/20/18 Exam# [id number] Ordering Dr: Veronica Oquendo O MAMMOGRAPHY - [...] delay biopsy of a clinically suspicious abnormality. [id number] Electronically Signed: Anam Larios MD at 7:57 EDT Tel [phone], Service jolly pport , CC: Veronica Oquendo DO Cognos Developer: Signed 29-Jan-2018 Modified Barium Swallow Study Result: Comments: See Note; NOTES: [facility] Speech Pathology [address] [place] [address] Modified Barium Swallow Study MR#: [id number] Acct: [id number] Name: SUGEY LING Rep #: [id number] : 1950 67 From: Eliezer Duke M.A., [facility] PRIMARY / SECONDARY DIAGNOSIS: dysphagia (R13.10) REFERRING [...] Patien t inhaled pieces of hamburger and Luxembourger rice. 04/26/2014 underwent bronchoscopy with bronchial lavage and foreign body removal after aspirating rice during intake of hamburger and Luxembourger rice. 2017 CT/Chest revealed old granulomatous disease; no acute pulmonary abnormality; resolution of the right lower lobe infiltrate seen on the prior CT. 12/31/2017 CXR revealed cardiomegaly; pectus excavat um deformity; no acute abnormality is seen. 01/08/2018 underwent bronchoscopy with bronchial lavage and foreign body removal after aspirating rice during intake of Sri Lankan food with resulting pneumoniti s of both food and emesis with bronchospasm, documentation reveals history of esophageal strictures with plans for cyber incident responder referral for possible esophageal dilatation. Patient reports [...] Thin liquids via cup (single sip): 1 Dibble thickened liquids via cup (single sip) : 1 Dibble thickened liquids via cup (single sip): 2 Dibble thickened liquids via cup (single sip): 1 [...] l functioning, with workup currently underway via cyber incident responder. Patient able to comprehend and express recommended [...] 1520 <Electronically signed by Eliezer Duke M.A., [facility] [facility]> Date Eliezer Duke M.A. [facility] [facility] Co-Signature Required for all Medicare patients Date/Time Co-Signature CC: 29-Jan-2018 Swallowing Function w/Video Result: Comments: See Note; NOTES: [facility] Imaging Services [address] [place] [address] Swallowing Function w/Video MR#: [id number] Acct: [id number] Name: SUGEY LING Rep #: [id number] : 1950 F 67 From: Anam Larios MD PCP: Veronica Oquendo DO Status: [facility] Study: Swallowing Function w/Video Date of Exam: 01/29/18 Exam# [id number] Ordering Dr: Isaías Stroud MD STUDY: SWALLOWING [...] Anam Larios MD at 14:25 EST Tel [phone], Service support , CC: Veronica Stroud Cognos Developer: Signed 30-Dec-2017 Chest PA and Lateral Result: Comments: See Note; NOTES: [facility] Imaging Services [address] [place] [address] Chest PA and Lateral MR#: [id number] Acct: [id number] Name: SUGEY LING Rep #: [id number] : 1950 67 From: Anam Larios MD PCP: Veronica Oquendo DO Status: REG CLI Study: Chest PA and Lateral Date of Exam: 12/30/17 Exam# [id number] Ordering Dr: Octavio Delgado MD STUDY: X- [...] Anam Larios MD at 12:54 EST Tel [phone], Service support , CC: Veronica Oquendo DO; Octavio Delgado MD Cognos Developer: Signed 22-Dec-2017 Chest PA and Lateral Result: Comments: See Note; NOTES: [facility] Imaging Services [address] [place] [address] Chest PA and Lateral MR#: [id number] Acct: [id number] Name: SUGEY LING Rep #: [id number] : 1950 F 67 From: Ronnie Bradford MD PCP: Veronica Oquendo DO Status: REG CLI Study: Chest PA and Lateral Date of Exam: 12/22/17 Exam# [id number] Ordering Dr: Kelsea Lund SOA INTEGRATION DEVELOPERJonathan STUDY: X-RAY C HEST REASON FOR EXAM: [...] , CC: NAKIA Lund; Veronica Oquendo DO Cognos Developer: Signed 04-Dec-2017 Chest without Contrast Result: Comments: See Note; NOTES: [facility] Imaging Services [address] [place] [address] Chest without Contrast MR#: [id number] Acct: [id number] Name: SUGEY LING Rep #: [id number] : 1950 F 67 From: Rogelio Alston DO PCP: Vernoica Oquendo DO Status: REG CLI Study: Chest without Contrast Date of Exam: 12/04/17 Exam# [id number] Ordering Dr: Octavio Delgado MD STUDY: CT [...] Rogelio Alston DO at 13:14 EST Tel [phone], Service support , CC: Veronica Oquendo DO; Octavio Delgado MD Cognos Developer: Signed 17-Nov-2017 Emergency Department Summary Result: Comments: See Note; NOTES: [facility] Medical Records Department [address] [place] [address] Emergency Department Summary 11/16/17 1811 MR#: [id number] Acct: [id number] Name: SUGEY LING Rep #: [id number] : 1950 66 From: Lobito Lee MD [...] a prednisone taper and sees a pul roll slicing machine tender. I believe that she should continue her [...] Aspiration event This note was generated with [employer] dictation software. It may contain incorrect words, [...] problems, contact your Primary Care Provider. Call [facility] ([phone]) or report to the closest Emergency Room. Call 911 if necessary. 11/17/17 0054 <Electronically signed by Lobito Lee MD> Date Lobito Lee MD Cosigner Signature (If Indicated): Date CC: Veronica Oquendo DO 16-Nov-2017 Chest PA and Lateral Result: Comments: See Note; NOTES: [facility] Imaging Services [address] [place] [address] Chest PA and Lateral MR#: [id number] Acct: [id number] Name: SUGEY LING Rep #: [id number] : 1950 F 66 From: Ivone Guevara MD PCP: Veronica Oquendo DO Status: REG ER Study: Chest PA and Lateral Date of Exam: 11/16/17 Exam# [id number] Ordering Dr: Lobito Lee MD STUDY: X-RAY [...] Fax CC: Veronica Oquendo DO; Lobito Lee Cognos Developer: Signed 09-Oct-2017 Chest PA and Lateral Result: Comments: See Note; NOTES: [facility] Imaging Services [address] [place] [address] Chest PA and Lateral MR#: [id number] Acct: [id number] Name: SUGEY LING Rep #: [id number] : 1950 F 66 From: Anam Larios MD PCP: Veronica Oquendo DO Status: REG CLI Study: Chest PA and Lateral Date of Exam: 10/09/17 Exam# [id number] Ordering Dr: Will Oliveira MD STUDY: X-RAY [...] Anam Larios MD at 15:14 EST Tel [phone], Service support , CC: Veronica Oquendo DO; Will Oliveira MD Cognos Developer: Signed 15-Jul-2017 PT D/C Summary (1) Result: Comments: See Note; NOTES: [facility] Physical Therapy [facility] [address] [place] [address] Fax REHABILITATION SERVICES [facility] SUMMARY MR#: [id number] Acct: [id number] Name: SUGEY LING Rep #: [id number] : 1950 66 From: Nghia Willis PT, Cert. MDT, OCS Referring Dr.: Chetan Medina MD Status: REG RCR Insurance: M EDICARE PART A B WPS SynapDx FOR [employer] HP - PT D/C Summary It has [...] therapy, please feel free to yamilka l nv at [phone]. Thank you for the referral of this patient. Sincerely, Nghia Willis, PT, <Electronically signed by Nghia Willis PT, Cert. MDT, [facility]> 07/15/17816 CC: Chetan Medina MD; Veronica Oquendo DO WENCESLAO Signed 11-Jul-2017 Emergency Department Summary Result: Comments: See Note; NOTES: [facility] Medical Records Department [address] [place] [address] Emergency Department Summary 06/21/17 0738 MR#: [id number] Acct: [id number] Name: SUGEY LING Rep #: [id number] : 1950 66 From: Rufino Vela MD [...] ED Arthritis Gout Prescriptions: Hydrocodone Bitart/Apap 5-325 [Delta 5/325] 1 - 2 tablet PO Q4H PRN PRN #7 tablet PRN Reason: Pain Referrals: Veronica Oquendo, DO [Primary Care Provider] - What to do if you have Problems For any increased pain, shortness of breath, bleeding, na usea or vomiting, chest pain, or any unexpected problems, contact your Primary Care Provider. Call [facility] ([phone]) or report to the closest Emergency Room. Call 911 if necessary. 07/11 0903 <Electronically signed by Rufino Vela MD> Date Rufino Vela MD Cosigner Signature (If Indicated): Date CC: Veronica Oquendo DO 21-Jun-2017 Discharge Instruction Result: Comments: See Note; NOTES: [facility] Medical Records Department [address] [place] [address] Discharge Instruction 06/21/17 0740 MR#: [id number] Acct: [id number] Name: Sissy LING Rep #: [id number] : 1950 66 From: Rufino Vela MD PCP: Veronica Oquendo DO Status: REG ER ED Disposition - Plan for ED Patient: Chief Complaint: Lower Extremity Injury Instruction s: ED Arthritis Gout Prescriptions: Hydrocodone Bitart/Apap 5-325 [Delta 5/325] 1 - 2 tablet PO Q4H [...] PT (1) Result: Comments: See Note; NOTES: [facility] Physical Therapy [facility] [address] [place] [address] Fax REEVALUATION / MEDICARE RECERTI [facility]EL [facility] 4d PHYSICAL THERAPY MR#: [id number] Acct: [id number] Name: SUGEY LING Rep #: [id number] : 1950 66 From: Nghia Willis PT, [...] do not hesitate to contact me at [phone] by phone or if you have questions [...] Bending Views Result: Comments: See Note; NOTES: [facility] Imaging Services [address] [place] [address] [place] 4d L/S Spine Comp/w Bending Views MR#: [id number] Acct: [id number] Name: DAVE LING Rep #: [id number] : 1950 F 66 From: Ronnie Bradford MD PCP: Veronica Oquendo DO Status: REG CLI Study: L/S Spine Comp/w Bending Views Date of Exam: 06/09/17 Exam# [id number] Ordering Dr: Alicia Chirinos MD STUDY: X-RAY [...] CC: Tia Chirinos M.D.; Veronica Oquendo DO Cognos Developer: Signed 26-May-2017 Re-Evaluation - PT (1) Result: Comments: See Note; NOTES: [facility] Physical Therapy [address] [place] [address] Fax [facility] MR#: [id number] Acct: [id number] Name: SUGEY LING Rep #: [id number] : 1950 66 From: Nghia Willis PT, [...] do not hesitate to contact me at [phone] by phone or if you have questions or concerns regardin g this new plan of care! Sincerely, Nghia Willis PT, <Electronically signed by Nghia Willis PT, Cert. T, [facility]> 05/26/17 1440 CC: Chetan Medina MD; Veronica Oquendo DO DD: WENCESLAO Signed For Medicare only, by signing this I certify the plan of care. Physicians Signature Date 12-May-2017 Dexa Bone Density Study (HP) Result: Comments: See Note; NOTES: [facility] Imaging Services [address] [place] [address] Ver[place] 4d Dexa Bone Density Study (HP) MR#: [id number] Acct: [id number] Name: SUGEY LING Rep #: [id number] : 1950 F 66 From: Anam Larios MD PCP: Veronica Oquendo DO Status: REG CLI Study: Dexa Bone Density Study (HP) Date of Exam: 05/12/17 Exam# [id number] Ordering Dr: Veronica Bridges DO STUDY: DUAL [...] Anam Larios MD at 12:45 EDT Tel [phone], Service support , CC: Veronica Oquendo DO Cognos Developer: Signed 12-May-2017 SCREENING MAMM (CAD), BILAT Result: Comments: See Note; NOTES: [facility] Imaging Services [address] [place] [address] [place] 4d SCREENING MAMM (CAD), BILAT MR#: [id number] Acct: [id number] Name: SUGEY LING Rep #: [id number] : 1950 F 66 From: Royce Phipps MD PCP: Veronica Oquendo DO Status: REG CLI Study: SCREENING MAMM (CAD), BILAT Date of Exam: 05/12/17 Exam# [id number] Ordering Dr: Bren Oquendo DO MAMMOGRAPHY - [...] delay biopsy of a clinically suspicious abnormality. [id number] Electronically Signed: Royce Phipps MD at 13:24 EDT Tel , Service support [phone], CC: Veronica Oquendo DO Cognos Developer: Signed 30-Apr-2017 Inital Evaluation (1) - PT Result: Comments: See Note; NOTES: [facility] Physical Therapy [facility] [place] [address] Fax REHABILITATION SERVICES INITIAL EVALUATION MR#: [id number] Acct: [id number] Name: SUGEY LING Rep #: [id number] [...] bowel/bladder problems. Physical therapy went well in [place], she was able to walk again. Social: [...] to be FAXED BACK to us at [phone] for Medicare purposes. Please let me know [...] Lumbar (Routine) Result: Comments: See Note; NOTES: [facility] Imaging Services [address] [place] [address] Ver[place] 4d Spine Lumbar (Routine) MR#: [id number] Acct: [id number] Name: SUGEY LING Devin Rep #: [id number] : 1950 F 66 From: Ronnie Bradford MD PCP: Veronica Oquendo DO Status: REG CLI Study: Spine Lumbar (Routine) Date of Exam: 04/24/17 Exam# [id number] Ordering Dr: Chetan Medina MD UDY: MRI [...] CC: Chetan Medina MD; Veronica Oquendo DO Cognos Developer: Signed 15-Apr-2017 Hips B/L min 2 views w/ Pelvis Result: Comments: See Note; NOTES: [facility] Imaging Services [address] [address] [place] 4d Hips B/L min 2 views w/ Pelvis MR#: [id number] Acct: [id number] Name: DAVE LING Rep #: [id number] : 1950 F 66 From: Jeremiah Ramos MD PCP: Veronica Oquendo DO Status: REG CLI Study: Hips B/L min 2 views w/ Pelvis Date of Exam: 04/15/17 Exam# [id number] Ordering Dr: Chetan Hubbard MD STUDY: X-RAY [...] CC: Chetan Medina MD; Veronica Oquendo DO Cognos Developer: Signed 16-Jul-2016 Spirometry (32097) Result: 16-Jul-2016 ELECTROCARDIOGRAM, COMPLETE (ECG) (22302) Comments: no new chg cmpared to last ekg Result: [MEASUREMENTS ANALYSIS] Date of Test: 07/16/2016 11:05:02; Heart Rate: 69; RI Interval: 144; QRS: 104; QT Interval: 394; Corrected QT Interval (QTc): 409; P Wave [place]: 56; QRS Wave [place]: 55; T Wave [place] : 90; Blood Pressure: 122/78 [ECG DIAGNOSTIC STATEMENTS] Date of Test: 07/16/2016 11:05:02; Summary: Sinus Rhythm Low voltage in limb leads. - Negative T- waves -Possible Anterior ischemia. ABNORMAL 04-Jul-2016 Knee 4 or More Views Result: Comments: See Note; NOTES: [facility] Imaging Services [address] [place] [address] [place] 4d Knee 4 or More Views MR#: [id number] Acct: [id number] Name: SUGEY LING Rep # : [id number] : 1950 F 65 From: Ivone Guevara MD PCP: Veronica Oquendo DO Status: REG CLI Study: Knee 4 or More Views Date of Exam: 07/04/16 Exam# [id number] Ordering Dr: Kassandra Fortune STUDY: X-RAY - [...] at 16:23 EDT Tel , Service support [phone], CC: Kassandra Fortune; Veronica Oquendo DO Cognos Developer: Signed 03-Jun-2016 Emergency Department Summary Result: Comments: See Note; NOTES: [facility] Medical Records Department [address] [place] [address] Emergency Department Summary MR#: [id number] Acct: [id number] Name: SUGEY LING Rep #: [id number] : 1950 65 From: Ronaldo Verduzco MD [...] C: Veronica Reeder MD T: NTS JOB: [id number] 06/03/16 1307 <Electronically signed by Ronaldo Verduzco MD> Date Ronaldo Verduzco MD Cosigner Signature (If Indicated): Date CC: Veronica Oquendo DO; Will Oliveira MD Date Dictated: 06/03/16 1232 Date Transcribed: 06/03/16 1232 Cognos Developer: Signed 03-Jun-2016 Discharge Instruction Result: Comments: See Note; NOTES: [facility] Medical Records Department [address] [place] [address] Discharge Instruction 06/03/16 1230 MR#: [id number] Acct: [id number] Name: SUGEY LING Rep #: [id number] : 1950 65 From: Ronaldo Verduzco MD PCP: Veronica Oquendo DO Status: REG ER ED Disposition - Plan for ED Patient: Disposition: Home or Assisted Living [facility] Complaint: Fall Instructions: ED Fracture, [...] any unexpected problems, contact your doctor. Call [facility] ([phone]) or report to the closest Emergency Room. Call 911 if necessary. 06/03/16 1234 <El ectronically signed by Ronaldo Verduzco MD> Date Ronaldo Verduzco MD Cosigner Signature (If Indicated): Date CC: Veronica Oquendo DO 03-Jun-2016 Shoulder min 2 Views Result: Comments: See Note; NOTES: [facility] Imaging Services [address] [place] [address] Ver[place] 4d Shoulder min 2 Views MR#: [id number] Acct: [id number] Name: SUGEY LING Rep #: [id number] : 1950 F 65 From: Anam Larios MD PCP: Veronica Oquendo DO Status: REG ER Study: Shoulder min 2 Views Date of Exam: 06/03/16 Exam# [id number] Ordering Dr: Ronaldo Verduzco MD STUDY: X-RAY [...] Anam Larios MD at 12:42 EDT Tel [phone], Service support [phone], RAD/Shoulder min 2 Views IMPRESSION: I suspect a nondisplaced impacted fracture of the surgical neck of the humerus. Electronically Signed: Anam rinaldi MD at 12:42 EDT Tel [phone], Service support [phone], CC: Veronica Oquendo DO; Ronaldo Verduzco MD Cognos Developer: Signed 13-May-2016 L/S Spine Min 4 Views Result: Comments: See Note; NOTES: [facility] Imaging Services [address] [place] [address] Ver[place] 4d L/S Spine Min 4 Views MR#: [id number] Acct: [id number] Name: SUGEY LING Rep #: [id number] : 1950 F 65 From: Anam Larios MD PCP: Veronica Oquendo DO Status: REG CLI Study: L/S Spine Min 4 Views Date of Exam: 05/13/16 Exam# [id number] Ordering Dr: Chetan Luo MD STUDY: X-RAY [...] Anam Larios MD at 8:31 EDT Tel [phone], Service support [phone], RAD/L/S Spine Min 4 Views IMPRESSION: Status post laminectomy and fusion at the L4-L5 and L5-S1 levels with prosthetic disc insertion. Grade 2 anterior listhesis of L5 on S1. Electron ically Signed: Anam Larios MD at 8:31 EDT Tel [phone], Service support [phone], CC: Chetan Medina MD; Veronica Oquendo DO Cognos Developer: Signed 13-May-2016 Chest WITH Contrast Result: Comments: See Note; NOTES: [facility] Imaging Services [address] [place] [address] [place] 4d Chest WITH Contrast MR#: [id number] Acct: [id number] Name: Sissy LING [facility] A Rep #: [id number] : 1950 F 65 From: Anam Larios MD PCP: Veronica Oquendo DO Status: REG CLI Study: Chest WITH Contrast Date of Exam: 05/13/16 Exam# [id number] Ordering Dr: Veronica Oquendo DO STUDY: CT [...] Anam Larios MD at 8:42 EDT Tel [phone], Service support , CC: Veronica Oquendo DO Cognos Developer: Signed 09-May-2016 Bilat Scrn Digital AND CAD Result: Comments: See Note; NOTES: [facility] Imaging Services [address] [place] [address] [place] 4d Bilat Scrn Digital AND CAD MR#: [id number] Acct: [id number] Name: SUGEY LING Rep #: [id number] : 1950 F 65 From: Anam Larios MD PCP: Veronica Oquendo DO Status: REG CLI Study: Bilat Scrn Digital AND CAD Date of Exam: 05/09/16 Exam# [id number] Order ing Dr: Veronica Oquendo DO MAMMOGRAPHY [...] delay biopsy of a clinically suspicious abnormality. [id number] Electronically Signed: Anam Larios MD at 10:46 EDT Tel [phone], Se rvice support [phone], CC: Veronica Oquendo DO Cognos Developer: Signed 09-May-2016 Chest PA and Lateral Result: Comments: See Note; NOTES: [facility] Imaging Services [address] [place] [address] [place] 4d Chest PA and Lateral MR#: [id number] Acct: [id number] Name: SUGEY LING Rep #: [id number] : 1950 F 65 From: Anam Larios MD PCP: Veronica Oquendo DO Status: REG CLI Study: Chest PA and Lateral Date of Exam: 05/09/16 Exam# [id number] Ordering Dr: Veronica Davidson DO STUDY: X-RAY [...] Anam Larios MD at 9:41 EDT Tel [phone], Service support [phone], RAD/Chest PA and Lateral IMPRESSION: Focal area of increased markings in the right midlung. Followup is recommended. Electronically Signed: Anam Larios MD at 9:41 EDT Tel [phone], Service support [phone], CC: Veronica Oquendo DO Cognos Developer: Signed 15-Apr-2016 Knee 4 or More Views Result: Comments: See Note; NOTES: [facility] Imaging Services [address] [place] [address] [place] 4d Knee 4 or More Views MR#: [id number] Acct: [id number] Name: SUGEY LING Rep #: [id number] : 1950 F 65 From: Royce Phipps MD PCP: Veronica Oquendo DO Status: REG CLI Study: Knee 4 or More Views Date of Exam: 04/15/16 Exam# [id number] Ordering Dr: Tad Oquendo DO STUDY: X-RAY [...] 10:30 EDT Tel , Servic e support [phone], RAD/Knee 4 or More Views IMPRESSION: Degenerative arthrosis. Electronically Signed: Royce Phipps MD at 10:30 EDT Tel , Service support [phone], CC: Veronica Oquendo DO Cognos Developer: Signed 15-Apr-2016 Knee 4 or More Views Result: Comments: See Note; NOTES: [facility] Imaging Services [address] [facility] [address] [address] [place] 4d Knee 4 or More Views MR#: [id number] Acct: [id number] Name: SUGEY LING Rep #: [id number] : 1950 F 65 From: Royce Phipps MD PCP: Veronica Oquendo DO Status: REG CLI Study: Knee 4 or More Views Date of Exam: 04/15/16 Exam# [id number] Ordering Dr: Tad Oquendo DO STUDY: X-RAY [...] 10:39 EDT Tel , Ser vice support [phone], RAD/Knee 4 or More Views IMPRESSION: Degenerative arthrosis. Electronically Signed: Royce Phipps MD at 10:39 EDT Te l , Service support [phone], CC: Veronica Oquendo DO Cognos Developer: Signed 30-Jul-2015 Spirometry (77512) Result: 19-Jul-2015 Spirometry (11491) Comments: mild obstruction - asx Result: 08-May-2015 Bilat Scrn Digital AND CAD Result: Comments: See Note; NOTES: [facility] Imaging Services [address] [place] [address] Breast Imaging Report MR#: [id number] Acct: [id number] Name: SGUEY LING Rep #: [id number] : 1950 F 64 From: Anam Larios MD PCP: Veronica Oquendo DO Status: REG CLI Study: Bilat Scrn Digital AND CAD Date of Exam: 05/08/15 Exam# [id number] Ordering Dr: Pippa Oquendo DO MAMMOGRAPHY - [...] Jj Larios MD at 10:50 EDT Tel [phone], Service support [phone], CC: Veronica Oquendo DO Cognos Developer: Signed 08-May-2015 Dexa Bone Density Study (HP) Result: Comments: See Note; NOTES: [facility] Imaging Services [address] [place] [address]246 Bone Density Report MR#: [id number] Acct: [id number] Name: SUGEY LING Rep #: [id number] : 1950 F 64 From: Anam Larios MD PCP: Veronica Oquendo DO Status: REG CLI Study: Dexa Bone Density Study (HP) Date of Exam: 05/08/15 Exam# [id number] Ordering Dr: Pippa Oquendo DO STUDY: DUAL [...] Anam Larios MD at 15:32 EDT Tel [phone], Service support [phone], CC: Veronica Oquendo DO Cognos Developer: Signed 27-Apr-2015 Chest PA and Lateral Result: Comments: See Note; NOTES: [facility] Imaging Services [address] [place] [address]16 Radiology Report MR#: [id number] Acct: [id number] Name: SUGEY LING Rep #: [id number] : 1950 F 64 From: Lilian Dominguez MD PCP: Veronica Oquendo DO Status: REG CLI Study: Chest PA and Lateral Date of Exam: 04/27/15 Exam# [id number] Ordering Dr: Veronica Oquendo DO STUDY : [...] Demineralized osseous structures and dextroscoliosis. Electronically Signed: Lilina Dominguez MD at 22:33 EDT , Service support [phone], RAD/Chest PA and Lateral IMPRESSION: No acute cardiopulmonary findings or changes. Mild hyper expansion and stable mild chronic lung changes. Stigmata of prior granulomatous disease. Atherosclerosis. Demineralized osseous structures and dextroscoliosis. Electronically Signed: Lilian Dominguez MD at 22:33 EDT , Service support [phone], CC: Veronica Oquendo DO Cognos Developer: Signed 31-May-2014 Foot min 3 Views Result: Comments: See Note; NOTES: [facility] Imaging Services [address] [place] [address]290 Radiology Report MR#: [id number] Acct: [id number] Name: SUGEY LING Rep #: [id number] : 1950 F 63 From: Celso Guerrero DO PCP: Veronica Oquendo DO Status: REG CLI Study: Foot min 3 Views Date of Exam: 05/31/14 Exam# [id number] Ordering Dr: Jdae Benson MD STUDY: X-RAY - RIGHT FOOT [...] at 9:32 EDT Tel , Service support [phone], CC: Veronica Oquendo DO; Jade Benson MD Cognos Developer: Signed 31-May-2014 Foot min 3 Views Result: Comments: See Note; NOTES: [facility] Imaging Services [address] [place] [address] Radiology Report MR#: [id number] Acct: [id number] Name: SUGEY LING Rep #: [id number] : 1950 F 63 From: Celso Guerrero DO PCP: Veronica Oquendo DO Status: REG CLI Study: Foot min 3 Views Date of Exam: 05/31/14 Exam# [id number] Ordering Dr: Jade Benson MD STUDY: X-RAY [...] DO at 9:34 EDT , Service support [phone], CC: Veronica Oquendo DO; Jade Benson MD Cognos Developer: Signed 31-May-2014 Hand Min 3 Views Result: Comments: See Note; NOTES: [facility] Imaging Services [address] [place] [address] Radiology Report MR#: [id number] Acct: [id number] Name: SUGEY LING Rep #: [id number] : 1950 F 63 From: Celso Guerrero DO PCP: Veronica Oquendo DO Status: REG CLI Study: Hand Min 3 Views Date of Exam: 05/31/14 Exam# [id number] Ordering Dr: Jade Benson MD STUDY: X-RAY [...] DO at 9:42 EDT , Service support [phone], CC: Veronica Oquendo DO; Jade Benson MD Cognos Developer: Signed 31-May-2014 Hand Min 3 Views Result: Comments: See Note; NOTES: [facility] Imaging Services [address] [place] [address] Radiology Report MR#: [id number] Acct: [id number] Name: SUGEY LING Rep #: [id number] : 1950 F 63 From: Celso Guerrero DO PCP: Veronica Oquendo DO Status: REG CLI Study: Hand Min 3 Views Date of Exam: 05/31/14 Exam# [id number] Ordering Dr: Jade Benson MD STUDY: X-RAY [...] at 9:43 EDT , Servic e support [phone], RAD/Hand Min 3 Views IMPRESSION: Osteopenia with degenerative changes. No acute fracture demonstrated. Electronically Signed: Ashok keith DO at 9:43 EDT , Service support [phone], CC: Veronica Oquendo DO; Jade Benson MD Cognos Developer: Signed 19-May-2014 Chest PA and Lateral Result: Comments: See Note; NOTES: [facility] Imaging Services [facility] [place] [address] Radiology Report MR#: [id number] Acct: [id number] Name: SUGEY LING Rep #: [id number] : 1950 F 63 From: Marciano Fountain MD PCP: Status: REG CLI Study: Chest PA and Lateral Date of Exam: 05/19/14 Exam# [id number] Ordering Dr: Veronica Oquendo DO STUDY: X-RAY [...] MD at 5:44 EDT , Service support [phone], CC: Veronica Oquendo DO Cognos Developer: Signed 18-Apr-2014 EKG (90600) Comments: nsr no acute chg Result: [MEASUREMENTS ANALYSIS] Date of Test: 04/18/2014 09:33:28; Heart Rate: 72; RI Interval: 148; QRS: 108; QT Interval: 392; Corrected QT Interval (QTc): 413; P Wave [place]: 63; QRS Wave [place]: 59; T Wave [place] : 66; Blood Pressure: 138/62 [ECG DIAGNOSTIC STATEMENTS] Date of Test: 04/18/2014 09:33:28; Summary: Sinus Rhythm Low voltage in limb leads. - Negative precordial T-waves. ABNORMAL 16-Sep-2013 Bilat Scrn Digital & CAD Result: Comments: See Note; NOTES: [facility] Imaging Services [address] [place] [address] Breast Imaging Report MR#: [id number] Acct: [id number] Name: SUGEY LING Rep #: [id number] : 1950 F 62 From: Anam Larios MD PCP: Veronica Oquendo DO Status: REG CLI Exam# [id number] Ordering Dr: Azra, Veronica DO MAMMOGRAPHY - [...] September 16, 2013 at 9:43:10 AM EDT [phone] Electronically Signed GP/GP If you are the referring physician and would like to consult with the radiologist who provided this interpretation, please contact Anam Webb i, M.D. at [phone]. If this radiologist is unavailable, you will be directed to another radiologist to assist. If you are a patient with a question regarding this report, please contact your re ferring physician directly. Professional Interpretation Provided By: Arnica, Phone , These documents contain legally protected [...] of these documents. CC: Veronica Oquendo DO Cognos Developer: Signed Family History Unknown Family Member [...] kg/m2 Body Surface Area Calculated 1.85 m2 12-Hlt-053834:51 Temperature 98.4 f Comments: Method: Tympanic Respiration [...] Surface Area Calculated 1.86 m2 :39 Comments: [facility] and had a glaucoma test donehearing [...] kg/m2 Body Surface Area Calculated 1.9 m2 14-Njb-512693:16 Pulse 84 /min Comments: Pattern: Regular Respiration [...] kg/m2 Body Surface Area Calculated 1.89 m2 35-Wgj-816267:17 Comments: [facility] and had a glaucoma test donehearing [...] kg/m2 Body Surface Area Calculated 1.9 m2 85-Jnr-708341:22 Pulse 79 /min Comments: Pattern: Regular Respiration [...] kg/m2 Body Surface Area Calculated 1.84 m2 43-Arh-291611:06 Pulse 64 /min Comments: Pattern: Regular Respiration [...] Description Value Details :59 URIC ACID BLOOD (98891) Comments: PATIENT NOT FASTINGPERFORMED BY: [facility] Liwkcw8019 [facility] [id number] Uric Acid 8.7 mg/dL (Abnormal) Range: 2.5-7.1 Comments: Therapeutic target for gout patients: <6.0 :34 HgA1C , Office (62067) HgA1C , Office 6.5 % (Normal) Range: 4.6 - 7.1 :33 Blood Glucose , Office (67166) Blood Glucose , Office 103 (Normal) 47-Crt-839233:32 Basic Metabolic Profile (BMP) Comments: [facility] [address] [place], [address] GAP 3 (Abnormal) Range: 5-15 CO2 31.0 [...] A.D.A. criteria.Please note revised GLUCOSE reference range pqnjdzyie74/02/2018. :36 HgA1C , Office (46484) HgA1C , Office 6.6 % (Normal) Range: 4.6 - 7.1 :36 Blood Glucose , Office (71712) Blood Glucose , Office 186 (Normal) Comments: not fasting 2-Ohp-007373:28 Miscellaneous Lab Procedure Comments: Comments: TRAMADOL URINE [id number](s) Ordered: URINE TOXICOLOGY [id number] RUN [facility] [address] [facility] [place], [address] [facility] Comments: [id number] 6+OXYCODONE-BUND (ng/mL)DRUG RESULT SCREEN CUTOFF____ Amphetamines,Urine Negat LAB (Normal) emy ng/mL 1000Amphetamine test includes Amphetamine and Methamphetamine.Barbiturates Negative ng/mL 200Benzodiazepines Negative ng/mL 200Cannabinoid TEST Negative ng/mL 20Cocaine (Metab) Negative ng/mL 300Opiates Negative ng/mL 300 Opiates test includes Codeine, Morphine, Hydromorphone, [place] codone.Oxycodone/Oxymorphone,Urine Negative ng/mL 300 Test includes Oxydodone and Oxymorphone. TESTING PERFORMED AT [facility]. ORIGINAL REPORT ON FILE IN LAB CONTAINS ADDITIONAL TEST SITE INFORMATION. 7-Vby-929309:28 Miscellaneous Lab Procedure 2 Comments: Comments: TRAMADOL URINE [id number] Test(s) Ordered by Physician: URINE TOXICOLOGY [id number] RUN [facility] [address] [place], [id number] [facility] Comments: TEST RESULT LIMITSTramadol Positive Cutoff = 200 Tramadol GC/MS COnf 6050 ng/mL Cutoff = 100 LAB (Normal) TESTING PERFORMED AT [facility]. ORIGINAL REPORT ON FILE IN LAB CONTAINS ADDITIONAL TEST SITE INFORMATION. TEST 2 7-Ptg-196094:28 Urine Drug Screen (VISTA) Comments: Comments: TRAMADOL URINE [id number] of Drugs Taken or Suspected? [facility] [address] [place], [place], [id number] THC NEGATIVE (Normal) PCP NEGATIVE (Normal) OPIATES [...] TESTING MUST BE ORDERED SEPARATELY. USE TESTMNEMONIC: [facility] 56-Gnd-881727:14 CBC-Complete Blood Cnt No Diff Comments: [facility] [address] [place], [phone]([phone] MPV 9.5 fL (Normal) Range: 6.2-12.0 PLT [...] 4.2-5.4 WBC 9.7 K/mm3 (Normal) Range: 4.4-11.0 61-Dwn-014672:14 Magnesium Comments: [facility] [address] [place], [address](480) MG 1.7 mg/dL (Normal) Range: 1.6-2.6 41-Yua-461869:14 Microalb:Creat Ratio,Random UR Comments: [facility] [address] [place], [address] MALB:CREAT 5.5 {mg/g_CRE} (Normal) MICROALBUMIN,UR 6.1 mg/L (Normal) UR CREAT 111.00 mg/dL (Normal) 29-Vha-682604:1 PTHIN 25.7 pg/mL (Normal) Comments: [address] [place], [phone] 4 Range: 18.4-80.1 Comments: Please Note: PTH INTACT METHOD AND REFERENCE RANGE CHANGEEffective 11/18/2017. 12-Nqy-208762:14 Renal Profile Comments: [facility] [address] [place], [phone] CO2 27.0 mmol/L (Normal) Range: 21.0-32.0 CL [...] A.D.A. criteria.Please note revised GLUCOSE reference range igmgmrjrl13/02/2018. 42-Jhn-769489:14 Uric Acid Comments: [facility] [address] [place], [address] URIC 8.4 mg/dL (Abnormal) Range: 2.6-6.0 Comments: The drugs N-Acetylcysteine and Metamizole may falselydepress this assay. 91-Tjw-272828:14 Vitamin D,25 Hydroxy Comments: [facility] [address] [place], [address] Vitamin D 25-OH 36.6 ng/mL (Normal) Range: 29.95-100.01 Comments: Vitamin D 25(OH) Status Range Deficiency <20 ng/mL (50nmol/L) Insuffciency 20 - 30 ng/mL (50 - 75 nmol/L) Sufficiency 30 - 100 ng/mL (75 - 250 nmol/L) Toxicity >100 ng/mL (>250 nmol/L) 42-Atw-76865:27 HgA1C , Office (04461) HgA1C , Office 6.7 % (Normal) Range: 4.6 - 7.1 2-Inj-707578:13 Bedside Glucose Comments: [facility] LaboratoryPoint of [address] [place] [address] BEDSIDE GLU 132 mg/dL (Abnormal) Range: 70-110 Comments: MANAGEMENT OF PATIENT CARE PER NURSING PROTOCOL 08-Jan-20180:00 Culture, Bronch Aveolar Lavage Comments: [facility] [address] [place], [address] CUBRL See Note (Normal) Comments: List Antibiotics Last 48 Hours? .List Antibiotics to be Started? .Gram StainGram Stain No White Blood Cells No organisms seen Resp. CultureMixed normal respiratory hermelindo. No Haemophilus, Streptoc occus pneumoniae, beta-hemolytic Streptococcus or Staphylococcus aureus isolated. 85-Hfh-082701:06 HgA1C , Office (54267) HgA1C , Office 8.2 % (Abnormal) Range: 4.6 - 7.1 39-Zwv-409215:06 Blood Glucose , Office (04850) Blood Glucose , Office 168 (Normal) 57-Ati-600784:00 Culture, Fungus 8482 Comments: [place] [address] [place], [address] CUF See Note Comments: PER ORDER, SPUTUM SMEAR/CULTURE FUNGAS Cu,Gmejan6844 TESTING PERFORMED AT [facility]. ORIGINAL REPORT ON FILE IN LAB CONTAINS NEO TIONAL TEST (Normal) SITE INFORMATION. CUF Positive Fungus Culture ORGANISM 1: Yana albicansAmount Growth Growth 82-Ewj-834014:00 Culture, Sputum Comments: [facility] [address] [place], [place], [id number] CUSP See Note (Normal) Comments: PER ORDER, SPUTUM SMEAR/CULTURE FUNGAS Gram StainAcceptable Specimen? Yes (<25 Epithelial cells per/lpf) Gram Stain 1+ White Blood Cells 1+ Epithelial cells 1+ Gram positive cocci Resp. CultureMixed normal respiratory hermelindo. No Haemophilus, Streptococcus pneumoniae, beta-hemolytic Streptococcus or Staphylococcus aureus isolated. 42-Qsb-529971:49 BNP,B-Type NATRIURETIC PEPTIDE Comments: [facility] [address] [place], [address] B-TYPE EB PEP 41.7 pg/mL (Normal) Range: 0-100 36-Cfb-784951:30 Rapid Flu (24411 x 2) Influenza A Ag neg (Normal) 0-Wrw-596703:14 Bedside Glucose Comments: [facility] [address] [place] [address] BEDSIDE GLU 151 mg/dL (Abnormal) Range: 70-110 Comments: MANAGEMENT OF PATIENT CARE PER NURSING PROTOCOL 07-Dec-20170:00 Culture, Bronch Aveolar Lavage Comments: [facility] [address] [place], [address] CUBRL See Note (Normal) Comments: [...] $ <=20 S(NF) indicates non-formulary drug at [facility]. Approval by Infectious Disease Specialist required before non-formulary drugs may be ordered and/or dispensed. 7-Dwy-506870:27 CBC-Complete Blood Cnt No Diff Comments: [facility] [address] [place], [place], [phone] MPV 10.0 fL (Normal) Range: 6.2-12.0 PLT [...] 4.2-5.4 WBC 14.0 K/mm3 (Abnormal) Range: 4.4-11.0 2-Kkm-702737:27 Hemoglobin A1c Comments: [facility] [address] [place], [place], [address] HGB A1C 7.9 % (Abnormal) Range: 4.2-6.3 8-Fqp-966904:27 Magnesium Comments: [facility] [address] [place], [place], [address] MG 1.9 mg/dL (Normal) Range: 1.8-2.4 4-Enz-887968:27 Microalb:Creat Ratio,Random UR Comments: [facility] [address] [place], [place], [address] MALB:CREAT 12.0 {mg/g_CRE} (Normal) MICROALBUMIN,UR 11.1 mg/L (Normal) UR CREAT 92.40 mg/dL (Normal) 9-Bbs-246235:27 PTHIN 83.3 pg/mL (Abnormal) Comments: [facility] [address] [place], [id number] Range: 18.4-80.1 Comments: Please Note: PTH INTACT METHOD AND REFERENCE RANGE CHANGEEffective 11/18/2017. 0-Rgl-299732:27 Renal Profile Comments: [facility] [address] [place], [id number] CO2 24.0 mmol/L (Normal) Range: 21.0-32.0 CL [...] 200 mg/dLsuggests DIABETES MELLITUS per A.D.A. criteria. 5-Mwi-976865:27 Uric Acid Comments: [facility] [address] [place], [address] URIC 9.0 mg/dL (Abnormal) Range: 2.6-6.0 Comments: The drugs N-Acetylcysteine and Metamizole may falselydepress this assay. 2-Ulz-203728:27 Vitamin D,25 Hydroxy Comments: [facility] [address] [place], [address] Vitamin D 25-OH 34.1 ng/mL (Normal) Comments: Vitamin D 25(OH) Status Range Deficiency <20 ng/mL (50nmol/L) Insuffciency 20 - 30 ng/mL (50 - 75 nmol/L) Sufficiency 30 - 100 ng/mL (75 - 250 nmol/L) Toxicity >100 ng/mL (>250 nmol/L) 80-Aoj-50704:22 THROAT CULTURE (30402) Comments: PATIENT NOT FASTINGPERFORMED BY: Bondsy [facility]CoRobert [facility] HamiltonVjlnfm8650 [facility] [id number] Information: SRC:TH Result 1 RRF (Normal) Comments: Routine respiratory hermelindo Upper Respiratory Culture Final report (Normal) 34-Pmj-175806:09 Rapid Flu (32515 x 2) Comments: Negative Influenza A Ag negative (Normal) 07-Mwn-590574:09 Rapid Strep Test, Office (94782) Comments: Negative Rapid Strep Test, Office Negative (Normal) 18-Khi-958642:52 Microscopic Examination Comments: PATIENT WAS FASTINGPERFORMED BY: [facility] Mibedx0156 [facility] [id number] Bacteria None seen (Normal) Mucus Threads Present (Normal) Epithelial Cells (non renal) 0-10 {/hpf} (Normal) Range: 0 - 10 RBC 0-2 {/hpf} (Normal) Range: 0 - 2 WBC 0-5 {/hpf} (Normal) Range: 0 - 5 55-Emm-643268:08 Magnesium Comments: [facility] [address] [place], [phone] MG 1.9 mg/dL (Normal) Range: 1.8-2.4 48-Uye-893088:08 Microalb:Creat Ratio,Random UR Comments: [facility] [address] [place], [address] MALB:CREAT 8.5 {mg/g_CRE} (Normal) MICROALBUMIN,UR 5.2 mg/L (Normal) UR CREAT 61.10 mg/dL (Normal) :08 PTH,INTACT Comments: [facility] [address] [place], [id number] PTH,Intact 40 pg/mL (Normal) Range: 14-72 :08 Renal Profile Comments: [facility] [address] [place], [address] CO2 23.0 mmol/L (Normal) Range: 21.0-32.0 CL [...] per A.D.A. criteria. :08 Uric Acid Comments: [facility] [address] [place], [address] URIC 8.0 mg/dL (Abnormal) Range: 2.6-6.0 Comments: The drugs N-Acetylcysteine and Metamizole may falselydepress this assay. :08 Vitamin D,25 Hydroxy Comments: [facility] [address] [place], [address] Vitamin D 25-OH 27.6 ng/mL (Normal) Comments: Vitamin D 25(OH) Status Range Deficiency <20 ng/mL (50nmol/L) Insuffciency 20 - 30 ng/mL (50 - 75 nmol/L) Sufficiency 30 - 100 ng/mL (75 - 250 nmol/L) Toxicity >100 ng/mL (>250 nmol/L) :52 URINALYSIS, W/ MICRO (44954) Comments: PATIENT WAS FASTINGPERFORMED BY: [facility]ubrit [facility] [id number] Microscopic Examination See below: (Normal) Comments: Microscopic was indicated and was performed. Nitrite, Urine Negative (Normal) Urobilinogen,Semi-Qn 0.2 mg/dL (Normal) Range: 0.2-1.0 Bilirubin Negative (Normal) Occult Blood Negative (Normal) Ketones Negative (Normal) Glucose 1+ (Abnormal) Protein Negative (Normal) WBC Esterase 1+ (Abnormal) Appearance Clear (Normal) Urine-Color Yellow (Normal) pH 6.5 (Normal) Range: 5.0-7.5 Specific [place] 1.023 (Normal) Range: 1.005-1.030 11-Roq-067393:52 MICROALBUMIN: CREATININE RATIO Comments: PATIENT WAS FASTINGPERFORMED BY: Qubrit [facility] [id number] (87115) AND (41190) Microalb/Creat Ratio 7.6 {mg/g_creat} (Normal) Range: 0.0-30.0 Microalbumin, Urine 6.8 ug/mL (Normal) Creatinine, Urine 89.4 mg/dL (Normal) 51-Ehf-147393:52 METABOLIC PANEL, COMPREHENSIVE Comments: PATIENT WAS FASTINGPERFORMED BY: [employer]70 [facility] [id number] (88262) ALT (SGPT) 22 [iU]/L (Normal) Range: 0-32 [...] Glucose, Serum 99 mg/dL (Normal) Range: 65-99 12-Zzj-255414:52 CBC W/AUTO DIFF WBC (58006) Comments: PATIENT WAS FASTINGPERFORMED BY: LabCoRobert Wood Johnson [facility] at HamiltonAfpacb1002 [facility] [id number] Immature Grans (Abs) 0.0 {x10E3/uL} (Normal) Range: [...] 3.77-5.28 WBC 13.0 {x10E3/uL} (Abnormal) Range: 3.4-10.8 77-Vku-399119:52 LIPID PANEL (11440) Comments: PATIENT WAS FASTINGPERFORMED BY: [facility] Oludah3874 [facility] [id number] LDL/HDL Ratio 1.8 {ratio_units} (Normal) Range: 0.0-3.2 Comments: LDL/HDL Ratio Men Women 1/2 Avg.Risk 1.0 1.5 Av g.Risk 3.6 3.2 2X Avg.Risk 6.2 5.0 3X Avg.Risk 8.0 6.1 LDL Cholesterol Calc 75 mg/dL (Normal) Range: 0-99 VLDL Cholesterol Yamilka 42 mg/dL (Abnormal) Range: 5-40 HDL Cholesterol 41 mg/dL (Normal) Triglycerides 211 mg/dL (Abnormal) Range: 0-149 Cholesterol, Total 158 mg/dL (Normal) Range: 100-199 75-Qja-795443:52 TSH (65862) Comments: PATIENT WAS FASTINGPERFORMED BY: [facility] Qbgffu1442 [facility] [id number] TSH 1.390 {uIU/mL} (Normal) Range: 0.450-4.500 88-Nsx-761157:52 CALCIFEDIOL (55126) Comments: PATIENT WAS FASTINGPERFORMED BY: [facility] Udyyqr4875 [facility] [id number] Vitamin D, 25-Hydroxy 38.5 ng/mL (Normal) Range: 30.0-100.0 Comments: Vitamin D deficiency has been defined by the [place] ofMedicine and an Endocrine Society practice guideline as alevel of serum 25-OH vitamin D less than 20 ng/mL (1,2).The Endocrine Society went on to further define vitamin Dinsufficiency as a level between 21 and 29 ng/mL (2).1. IOM ([place] of Medicine). 2010. Dietary reference intakes for calcium and D. [place]: The National Academies Press.2. Stephon MF, Ana ROY, Alka ROMERO, et al. Evaluation, treatment, and prevention of vitamin D deficiency: an Endocrine Society clinical practice guideline. JCEM. 2010; 96(7):1911-30. :32 HgA1C , Office (64553) HgA1C , Office 8.1 % (Abnormal) Range: 4.6 - 7.1 :32 Blood Glucose , Office (11405) Blood Glucose , Office 122 (Normal) :37 Immature Cells Comments: PATIENT WAS FASTINGPERFORMED BY: [employer] Yfalrm7884 [employer]in [place] [id number] Myelocytes 1 % (Abnormal) Range: 0 - 0 Metamyelocytes 3 % (Abnormal) Range: 0 - 0 :16 PHOSPHORUS (04247) Comments: PATIENT WAS FASTINGPERFORMED BY: [employer] Cgcklk4304 Wu RoadDublin [place] [id number] Phosphorus, Serum 2.8 mg/dL (Normal) Range: 2.5-4.5 :16 MAGNESIUM (55833) Comments: PATIENT WAS FASTINGPERFORMED BY: [employer] Zqcxmr3327 Wu NovogyDublin [place] [id number] Magnesium, Serum 1.8 mg/dL (Normal) Range: 1.6-2.3 :16 METABOLIC PANEL, COMPREHENSIVE Comments: PATIENT WAS FASTINGPERFORMED BY: [employer]70 Wu Infoniqa Groupblin [place] [id number] (56753) ALT (SGPT) 29 [iU]/L (Normal) Range: 0-32 [...] DIR SMEAR Comments: PATIENT NOT FASTINGPERFORMED BY: FormotusCount includes the [facility] [id number] (53961) Result 1 NOCP (Normal) Comments: No ova, cysts, or parasites seen. Ova + Parasite Exam Final report (Normal) Comments: These results were obtained using wet preparation(s) and trichromestained smear. This test does not include testing for Cryptosporidiumparvum, Cyclospora, or Microsporidia. :34 OCCULT BLOOD FECES SCREEN Comments: PATIENT NOT FASTINGPERFORMED BY: [employer] Aujxtz7624 [employer] Payment TechnologiesCount includes the [facility] [id number] (04298) Occult Blood, Fecal, IA Negative (Normal) :34 LEUKOCYTE COUNT, FECAL (09981) Comments: PATIENT NOT FASTINGPERFORMED BY: Bondsy [facility] Jtnewq0110 Wu Infoniqa Groupin [place] [id number] Result 1 NWBC (Normal) Comments: No white blood cells seen. White Blood Cells (WBC), Final report (Normal) Stool :34 C-DIFFICILE, STOOL (60004) Comments: PATIENT NOT FASTINGPERFORMED BY: CB [facility] Dondku7792 Wu Infoniqa Groupin [place] [id number] C difficile Toxins A+B, EIA Negative (Normal) :34 ALFONZO CULTURE-STOOL (27699) Comments: PATIENT NOT FASTINGPERFORMED BY: Bondsy [facility] Znysgs6840 Wu Infoniqa GroupCount includes the [facility] [id number] Information: SRC:ST SRC:ST E coli Shiga Toxin EIA Negative (Normal) Result 1 NCI (Normal) Comments: No Campylobacter species isolated. Campylobacter Culture Final report (Normal) Result 1 NSS (Normal) Comments: No Salmonella or Shigella recovered. Salmonella/Shigella Screen Final report (Normal) 17-Mkd-650013:56 Metabolic Panel, Comprehensive Comments: PATIENT NOT FASTINGPERFORMED BY: NLP Logixrp Edrtuw1169 [employer] TechnologiesCount includes the [facility] [id number] (40403) ALT (SGPT) 26 [iU]/L (Normal) Range: 0-32 [...] Glucose, Serum 147 mg/dL (Abnormal) Range: 65-99 37-Ute-107317:56 CBC, Platelets & Auto Diff Comments: PATIENT NOT FASTINGPERFORMED BY: LabCoRobert [facility] at HamiltonVfmsfw1768 [facility] [id number] (75460) Immature Grans (Abs) 0.1 {x10E3/uL} (Normal) Range: [...] (Normal) Range: 3.4-10.8 :37 URIC ACID BLOOD (51255) Comments: PATIENT WAS FASTINGPERFORMED BY: [facility]6370 [facility] [id number] Uric Acid, Serum 9.1 mg/dL (Abnormal) Range: 2.5-7.1 Comments: Therapeutic target for gout patients: <6.0 :10 METABOLIC PANEL, COMPREHENSIVE (01570) :37 CBC W/AUTO DIFF WBC (83791) Comments: PATIENT WAS FASTINGPERFORMED BY: [facility]Wal[facility]6370 [facility] [id number] Hematology Comments: Note: (Normal) Comments: Manual differential [...] 3.77-5.28 WBC 9.4 {x10E3/uL} (Normal) Range: 3.4-10.8 00-Qad-427443:58 Magnesium Comments: [facility] [address] [place], [address] MG 2.0 mg/dL (Normal) Range: 1.8-2.4 Comments: Slight Hemolysis, Result may be falsely increased. 25-Fvp-361823:58 Renal Profile Comments: [facility] [address] [place], [address] CO2 27.0 mmol/L (Normal) Range: 21.0-32.0 CL [...] per A.D.A. criteria. :45 URIC ACID BLOOD (33350) Comments: PATIENT NOT FASTINGPERFORMED BY: LabCoRobert [facility] at HamiltonJbbuyf4743 [facility] [id number] Uric Acid, Serum 9.6 mg/dL (Abnormal) Range: 2.5-7.1 Comments: Therapeutic target for gout patients: <6.0 :45 RENAL FUNCTION PANEL (99832) Comments: PATIENT NOT FASTINGPERFORMED BY: BiocontrolRobert Wood Johnson University Hospital at HamiltonOkvzxm2471 [facility] [id number] Albumin, Serum 4.5 g/dL (Normal) Range: 3.6-4.8 [...] 214 mg/dL (Abnormal) Range: 65-99 :24 CALCIFIDIOL (75644) VIT D 25 Comments: PATIENT WAS FASTINGPERFORMED BY: LabCoRobert Wood Johnson University Hospital at HamiltonWauibb5627 [facility] [id number] Vitamin D, 25-Hydroxy 44.9 ng/mL (Normal) Range: 30.0-100.0 Comments: Vitamin D deficiency has been defined by the [place] ofMedicine and an Endocrine Society practice guideline as alevel of serum 25-OH vitamin D less than 20 ng/mL (1,2).The Endocrine Society went on to further define vitamin Dinsufficiency as a level between 21 and 29 ng/mL (2).1. IOM (Hugo of Medicine). 2010. Dietary reference intakes for calcium and D. [place]: The National Academies Press.2. Stephon MF, Ana [place], Alka ROMERO, et al. Evaluation, treatment, and prevention of vitamin D deficiency: an Endocrine Society clinical practice guideline. JCEM. 2010; 96(7):1911-30. :39 HgA1C , Office (36757) HgA1C , Office 7.6 % (Abnormal) Range: 4.6 - 7.1 :39 Blood Glucose , Office (53970) Blood Glucose , Office 174 (Normal) :56 TSH (80670) Comments: PATIENT WAS FASTINGPERFORMED BY: [facility]Wal[facility]6370 [facility] [id number] TSH 2.180 {uIU/mL} (Normal) Range: 0.450-4.500 :56 LIPID PANEL (18875) Comments: PATIENT WAS FASTINGPERFORMED BY: LabWal[facility]. [facility]6370 [facility] [id number] LDL/HDL Ratio 1.8 {ratio_units} (Normal) Range: 0.0-3.2 [...] Range: 100-199 :36 CBC W/Diff, Automated Comments: [facility] [address] [place], [place], [id number] Absolute Lymph 1.31 {X10_3/ul} (Normal) Range: 0.83-4.51 [...] 4.2-5.4 WBC 10.5 K/mm3 (Normal) Range: 4.4-11.0 8-Cmx-394173:36 Magnesium Comments: [facility] [address] [place], [phone] MG 1.9 mg/dL (Normal) Range: 1.8-2.4 2-Ush-967818:36 Protein+Creatinine Ratio,Urine Comments: [facility] [address] [place], [address] PROT:CRE RATIO 120 {mg/g_CRE} (Normal) Range: 0-200 PROTEIN,UR.RAN. 13.6 mg/dL (Abnormal) UR CREAT 113.00 mg/dL (Normal) 5-Nvg-888734:36 PTH,INTACT Comments: [facility] [address] [place], [phone] PTH,Intact 27 pg/mL (Normal) Range: 14-72 5-Ngi-081314:36 Renal Profile Comments: [facility] Te[address] [place], [phone] CO2 27.0 mmol/L (Normal) Range: 21.0-32.0 CL [...] per A.D.A. criteria. :36 Uric Acid Comments: [facility] [address] [place], [place], [id number] URIC 7.5 mg/dL (Abnormal) Range: 2.6-6.0 Comments: The drugs N-Acetylcysteine and Metamizole may falsely deressthis assay. 7-Gfb-497677:36 Vitamin D,25 Hydroxy Comments: [facility] [address] [place], [place], [address] Vitamin D 25-OH 33.9 ng/mL (Normal) Comments: Vitamin D 25(OH) Status Range Deficiency <20 ng/mL (50nmol/L) Insuffciency 20 - 30 ng/mL (50 - 75 nmol/L) Sufficiency 30 - 100 ng/mL (75 - 250 nmol/L) Toxicity >100 ng/mL (>250 nmol/L) :24 Renal Profile Comments: [facility] [address] [place], [address] CO2 24.0 mmol/L (Normal) Range: 21.0-32.0 CL [...] Immature Cells Comments: PATIENT WAS FASTINGPERFORMED BY: [employer]Hop6370 [employer] [facility] [id number] Myelocytes 4 % (Abnormal) Range: 0 - 0 :46 Microscopic Examination Comments: PATIENT WAS FASTINGPERFORMED BY: LineHop6370 [facility] [id number] Bacteria Few (Normal) Mucus Threads Present (Normal) Crystal Type Calcium Oxalate (Normal) Crystals Present (Abnormal) Epithelial Cells (non renal) 0-10 {/hpf} (Normal) Range: 0 - 10 RBC 3-10 {/hpf} (Abnormal) Range: 0 - 2 WBC 11-30 {/hpf} (Abnormal) Range: 0 - 5 :47 Sputum Culture (38251) Comments: PATIENT NOT FASTINGPERFORMED BY: Qubrit [facility] [id number] Information: SRC:SP Result 1 RRF (Normal) Comments: Routine respiratory hermelindo Lower Respiratory Culture Final report (Normal) :46 CALCIFEDIOL (12376) Comments: PATIENT WAS FASTINGPERFORMED BY: BiocontrolRobert Wood Johnson University Hospital at HamiltonZgjkxe7600 [facility] [id number] Vitamin D, 25-Hydroxy 32.4 ng/mL (Normal) Range: 30.0-100.0 Comments: Vitamin D deficiency has been defined by the Hugo ofMedicine and an Endocrine Society practice guideline as alevel of serum 25-OH vitamin D less than 20 ng/mL (1,2).The Endocrine Society went on to further define vitamin Dinsufficiency as a level between 21 and 29 ng/mL (2).1. IOM (Hugo of Medicine). 2010. Dietary reference intakes for calcium and D. [place]: The National Academies Press.2. Stephon MF, Ana NC, Alka ROMERO, et al. Evaluation, treatment, and prevention of vitamin D deficiency: an Endocrine Society clinical practice guideline. JCEM. 2010; 96(7):1911-30. :46 Metabolic Panel, Comprehensive Comments: PATIENT WAS FASTINGPERFORMED BY: Avedro6370 [facility] [id number] (60544) ALT (SGPT) 19 [iU]/L (Normal) Range: 0-32 [...] Glucose, Serum 126 mg/dL (Abnormal) Range: 65-99 34-Jph-67307:46 CBC WITH MANUAL DIFF Comments: PATIENT WAS FASTINGPERFORMED BY: LabWal[facility]6370 [facility] [id number] Information: [id number] (53828) Hematology Comments: Note: (Normal) Comments: Manual differential [...] 14.0 {x10E3/uL} (Abnormal) Range: 3.4-10.8 :46 URINALYSIS (63193) Comments: PATIENT WAS FASTINGPERFORMED BY: [employer] MIT CSHub [facility] [id number] Microscopic Examination See below: (Normal) Comments: Microscopic was indicated and was performed. Nitrite, Urine Negative (Normal) Urobilinogen,Semi-Qn 0.2 mg/dL (Normal) Range: 0.2-1.0 Bilirubin Negative (Normal) Occult Blood Negative (Normal) Ketones Negative (Normal) Glucose 2+ (Abnormal) Protein Negative (Normal) WBC Esterase 3+ (Abnormal) Appearance Clear (Normal) Urine-Color Yellow (Normal) pH 6.5 (Normal) Range: 5.0-7.5 Specific [place] 1.022 (Normal) Range: 1.005-1.030 :46 MICROALBUMIN: CREATININE RATIO Comments: PATIENT WAS FASTINGPERFORMED BY: [employer] MIT CSHub Wu [facility] [id number] (62356) AND (09388) Microalb/Creat Ratio 10.1 {mg/g_creat} (Normal) Range: 0.0-30.0 Microalbumin, Urine 7.3 ug/mL (Normal) Creatinine, Urine 72.6 mg/dL (Normal) :46 TSH (20715) Comments: PATIENT WAS FASTINGPERFORMED BY: [employer] Hksqht4746 [facility] [id number] TSH 2.600 {uIU/mL} (Normal) Range: 0.450-4.500 :46 Lipid Panel (19806) Comments: PATIENT WAS FASTINGPERFORMED BY: [employer] MIT CSHub [facility] [id number]; has appt 08/20, will review at that [...] (Normal) Range: 100-199 :49 HgA1C , Office (05286) HgA1C , Office 6.6 % (Normal) Range: 4.6 - 7.1 :49 Blood Glucose , Office (02405) Blood Glucose , Office 113 (Normal) :10 CBC W/Diff, Automated Comments: [facility] [address] [place], [address] Absolute Lymph 1.40 {X10_3/ul} (Normal) Range: 0.83-4.51 [...] (Normal) Range: 4.4-11.0 :10 Magnesium Comments: Comments: [facility] [address] [place], [phone](584 MG 1.9 mg/dL (Normal) Range: 1.8-2.4 :10 Protein+Creatinine Ratio,Urine Comments: [facility] [address] [place], [address] PROT:CRE RATIO 112 {mg/g_CRE} (Normal) Range: 0-200 PROTEIN,UR.RAN. 8.1 mg/dL (Normal) UR CREAT 72.10 mg/dL (Normal) :10 PTH,INTACT Comments: [facility] [address] [place], [phone] PTH,Intact 29 pg/mL (Normal) Range: 14-72 :10 Renal Profile Comments: Comments: [facility] [address] [place], [address] CO2 25.0 mmol/L (Normal) Range: 21.0-32.0 CL [...] 126 mg/dLsuggests DIABETES MELLITUS per A.D.A. criteria. 15-Srg-812536:10 Uric Acid Comments: Comments: [facility] [address] [place], [address] URIC 7.1 mg/dL (Abnormal) Range: 2.6-6.0 Comments: The drugs N-Acetylcysteine and Metamizole may falsely deressthis assay. 23-Gku-636233:10 Vitamin D,25 Hydroxy Comments: [facility] [address] [place], [address] Vitamin D 25-OH 35.5 ng/mL (Normal) Comments: Vitamin D 25(OH) Status Range Deficiency <20 ng/mL (50nmol/L) Insuffciency 20 - 30 ng/mL (50 - 75 nmol/L) Sufficiency 30 - 100 ng/mL (75 - 250 nmol/L) Toxicity >100 ng/mL (>250 nmol/L) 39-Rom-768664:10 CALCIUM SERUM (11105) Comments: PATIENT NOT FASTINGPERFORMED BY: [employer] Enrxme8920 [employer] TechnologiesCount includes the [facility] [id number] Information: [id number] Calcium, Serum 10.3 mg/dL (Normal) Range: 8.7-10.3 62-Mod-882538:10 MAGNESIUM (13266) Comments: PATIENT NOT FASTINGPERFORMED BY: [employer] Abkiii8870 [employer] Payment Technologiesin [place] [id number] Magnesium, Serum 2.1 mg/dL (Normal) Range: 1.6-2.3 :14 Bedside Glucose Comments: [facility] LaboratoryPoint of Xbio[address] [place] [address] BEDSIDE GLU 110 mg/dL (Normal) Range: 70-110 Comments: MANAGEMENT OF PATIENT CARE PER NURSING PROTOCOL :26 Metabolic Panel, Basic Comments: PATIENT NOT FASTINGPERFORMED BY: [facility] Uzurpf0643 [facility] [id number] Information: [id number]; will review on 06/04 (72479) Calcium, Serum 10.0 mg/dL (Normal) Range: 8.7-10.3 [...] Glucose, Serum 104 mg/dL (Abnormal) Range: 65-99 89-Pqy-861863:39 Magnesium Comments: ORDERED CA AND PTHINDRLUDA ORDERED CBC PTHIN RENAL VITD CRE/PROURIC [facility] [address] [place], [address] MG 2.0 mg/dL (Normal) Range: 1.8-2.4 :39 Protein+Creatinine Ratio,Urine Comments: [facility] [address] [place], [address] PROT:CRE RATIO 188 {mg/g_CRE} (Normal) Range: 0-200 PROTEIN,UR.RAN. < 6.0 mg/dL (Normal) UR CREAT 29.80 mg/dL (Normal) 98-Clh-225531:39 PTH,INTACT Comments: [facility] [address] [place], [address] PTH,Intact 53 pg/mL (Normal) Range: 14-72 :39 Renal Profile Comments: ORDERED CA AND PTHINDR.LUZ ORDERED CBC PTHIN RENAL VITD CRE/PROURIC [facility] [address] [place], [address] CO2 22.0 mmol/L (Normal) Range: 21.0-32.0 CL [...] CRE/PROURIC [facility] [address] [place], [phone] URIC 7.3 mg/dL (Abnormal) Range: 2.6-6.0 Comments: The drugs N-Acetylcysteine and Metamizole may falsely deressthis assay. 95-Icm-079764:39 Vitamin D,25 Hydroxy Comments: [facility] [address] [place], [address] Vitamin D 25-OH 52.3 ng/mL (Normal) Comments: Vitamin D 25(OH) Status Range Deficiency <20 ng/mL (50nmol/L) Insuffciency 20 - 30 ng/mL (50 - 75 nmol/L) Sufficiency 30 - 100 ng/mL (75 - 250 nmol/L) Toxicity >100 ng/mL (>250 nmol/L) 1-Kam-422697:09 URINE CALCIUM KAITLIN TIMED Comments: PATIENT NOT FASTINGPERFORMED BY: [facility] Maknld9658 [facility] [id number] Information: [id number] 2500ML START @6AM FINISH 05/05/16@ 6AM (40242) Calcium, Urine 24hr 45.0 {mg/24_hr} (Abnormal) Range: 100.0-300.0 Calcium, Urine 1.8 mg/dL (Normal) 02-May-20169:30 Fecal Occult Blood , Office (98637) Fecal Occult Blood , Office (Inhouse) negative (Normal) 98-Rlo-319376:23 Crystals, Body Fluid Comments: [facility] [address] [place], [phone] PATH REV Reviewed (Normal) Comments: Negative for malignant cells.Mixture of calcium pyrophosphate (pseudogout) crystals andnondescript crystals are noted.Johnson Castro M.D. 04/29/16 SOURCE/BF SYNOVIAL (Normal) CRYSTALS/BF SEE PATH REV (Normal) 96-Xor-143618:23 Culture, Body Fluid Comments: [facility] [address] [place], [address] CUBF See Note (Normal) Comments: List Antibiotics Last 48 Hours? UNKList Antibiotics to be Started? UNKGram StainCentrifuged Specimen? Culture performed on centrifuged specimen Gram Stain Rare Red Cell Stroma Rare Red Blood Cells No organisms seen Body Fluid CultNO GROWTH IN 14 DAYS Cult, AnaerobicNo growth in 5 days. 82-Ymv-076017:23 GLUCOSE, SYNOVIAL FLUID Comments: ORDERED WRONGSpecimen Source: [...] be integrated into the clinical contextfor interpretation. 08-Bof-559882:23 Synovial Fluid RBC, WBC AND Comments: [facility] [address]94 [facility] [place], [address] Diff PATH COM/SYFL March follow (Normal) OTHER [...] COLOR Yellow (Normal) VISCOSITY/SYFL Sl. Viscous (Normal) 1-Hcc-939984:58 CALCIUM SERUM (64284) Comments: PATIENT NOT FASTINGPERFORMED BY: FormotusCount includes the [facility] [id number] Information: [id number] Calcium, Serum 10.6 mg/dL (Abnormal) Range: 8.7-10.3 :10 Microscopic Examination Comments: PATIENT WAS FASTINGPERFORMED BY: LineHop6370 [employer] TechnologiesCount includes the [facility] [id number] Bacteria None seen (Normal) Mucus Threads Present (Normal) Epithelial Cells (non renal) 0-10 {/hpf} (Normal) Range: 0 - 10 RBC None seen {/hpf} (Normal) Range: 0 - 2 WBC 0-5 {/hpf} (Normal) Range: 0 - 5 :10 CALCIFIDIOL (82466) VIT D 25 Comments: PATIENT WAS FASTINGPERFORMED BY: LineHop6370 [facility] [id number] Vitamin D, 25-Hydroxy 63.0 ng/mL (Normal) Range: 30.0-100.0 Comments: Vitamin D deficiency has been defined by the [place] ofMedicine and an Endocrine Society practice guideline as alevel of serum 25-OH vitamin D less than 20 ng/mL (1,2).The Endocrine Society went on to further define vitamin Dinsufficiency as a level between 21 and 29 ng/mL (2).1. IOM (Hugo of Medicine). 2010. Dietary reference intakes for calcium and D. [place]: The National Academies Press.2. Stephon MF, Ana [place], [place] ROMERO, et al. Evaluation, treatment, and prevention of vitamin D deficiency: an Endocrine Society clinical practice guideline. JCEM. 2010; 96(7):1911-30. :10 TSH (47347) Comments: PATIENT WAS FASTINGPERFORMED BY: PRATIMA [employer] Advanced TechnologiesWalter P. [facility] Psych[facility] Hospital6370 [facility] [id number] TSH 2.680 {uIU/mL} (Normal) Range: 0.450-4.500 :10 URINALYSIS, W/ MICRO (13991) Comments: PATIENT WAS FASTINGPERFORMED BY: [facility]6370 [facility] [id number] Microscopic Examination See below: (Normal) Comments: Microscopic was indicated and was performed. Microscopic Examination MICRON (Normal) Comments: Microscopic follows if indicated. Nitrite, Urine Negative (Normal) Urobilinogen,Semi-Qn 0.2 mg/dL (Normal) Range: 0.2-1.0 Bilirubin Negative (Normal) Occult Blood Negative (Normal) Ketones Negative (Normal) Glucose 3+ (Abnormal) Protein Negative (Normal) WBC Esterase Negative (Normal) Appearance Clear (Normal) Urine-Color Yellow (Normal) pH 6.5 (Normal) Range: 5.0-7.5 Specific [place] 1.022 (Normal) Range: 1.005-1.030 :10 MICROALBUMIN: CREATININE RATIO Comments: PATIENT WAS FASTINGPERFORMED BY: Sych[employer] Advanced TechnologiesWalter P. [facility]uther Psych[facility] Hospital6370 [facility] [id number] (08088) AND (22694) Microalb/Creat Ratio 20.5 {mg/g_creat} (Normal) Range: 0.0-30.0 Microalbumin, Urine 20.1 ug/mL (Normal) Comments: Please note reference interval change Creatinine, Urine 97.9 mg/dL (Normal) Comments: Please note reference interval change :10 LIPID PANEL (11916) Comments: PATIENT WAS FASTINGPERFORMED BY: [facility]6370 [facility] [id number] LDL/HDL Ratio 2.0 {ratio_units} (Normal) Range: 0.0-3.2 [...] Cholesterol, Total 141 mg/dL (Normal) Range: 100-199 69-Exp-21790:10 METABOLIC PANEL, COMPREHENSIVE Comments: PATIENT WAS FASTINGPERFORMED BY: [facility] Ivhdme7929 [facility] [id number]; will review on 04.18 (38481) ALT (SGPT) 18 [iU]/L (Normal) Range: 0-32 [...] DIFF WBC Comments: PATIENT WAS FASTINGPERFORMED BY: LabCoRobert Wood Johnson University Hospital at HamiltonFkxhzv0883 Bryce BishopSaint Elizabeth [facility]wood [id number] Information: [id number], [id number] (37704) Immature Grans (Abs) 0.0 {x10E3/uL} (Normal) Range: [...] (Normal) Range: 3.4-10.8 :02 HgA1C , Office (26500) HgA1C , Office 6.6 % (Normal) Range: 4.6 - 7.1 :02 Blood Glucose , Office (39095) Blood Glucose , Office 142 (Normal) 57-Axd-749216:20 NuSwab Vaginitis Plus Comments: PATIENT NOT FASTINGPERFORMED BY: Lab[address] [id number] Information: [id number] (STD W/O Herpes) (17823) Neisseria gonorrhoeae, YAIR Negative (Normal) Chlamydia trachomatis, YAIR Negative (Normal) Trich vag by YAIR Negative (Normal) Yana glabrata, YAIR Negative (Normal) Comments: This test was developed and its performance characteristics determinedby LabCoBroadchoice. It has not been cleared or approved [...] was developed and its performance characteristics determinedby [employer]. It has not been cleared or appro tima by the Food and DrugAdministration. The FDA has determined that such clearance orapproval is not necessary. BVAB 2 Low - 0 {Score} (Normal) Atopobium vaginae Low - 0 {Score} (Normal) 83-Rvq-286909:56 Magnesium Comments: Test performed at:[facility] [address] [place] [address] MG 2.2 mg/dL (Normal) Range: 1.8-2.4 88-Hzx-602961:56 Protein+Creatinine Ratio,Urine Comments: Test performed at:[facility] [address] [place] [address] PROT:CRE RATIO 440 {mg/g_CRE} (Abnormal) Range: 0-200 PROTEIN,UR.RAN. 8.1 mg/dL (Normal) UR CREAT 18.20 mg/dL (Normal) 06-Gbt-411319:56 Renal Profile Comments: Test performed at:[facility] [address] [place] [address] CO2 28.0 mmol/L (Normal) Range: 21.0-32.0 CL [...] Comments: Please note revised CREATININE reference range wndrfayhm06/22/2015. BUN 44 mg/dL (Abnormal) Range: 7-18 GLU 186 mg/dL (Abnormal) Range: 70-110 Comments: Fasting Glucose result greater than or equal to 126 mg/dLsuggests DIABETES MELLITUS per A.D.A. criteria. 87-Ujx-092555:56 Uric Acid Comments: Test performed at:[facility] [address] [place] [address] URIC 6.5 mg/dL (Abnormal) Range: 2.6-6.0 :56 Vitamin D,25 Hydroxy Comments: Test performed at:[facility] [address] [place] [address] 895391 Vitamin D 25-OH 67.0 ng/mL (Normal) Comments: Vitamin D 25(OH) Status Range Deficiency <20 ng/mL (50nmol/L) Insuffciency 20 - 30 ng/mL (50 - 75 nmol/L) Sufficiency 30 - 100 ng/mL (75 - 250 nmol/L) Toxicity >100 ng/mL (>250 nmol/L) 26-Vbb-025055:01 Rapid Strep Test, Office (76726) Rapid Strep Test, Office Negative (Normal) 07-Zgt-96145:21 HgA1C , Office (64492) HgA1C , Office 6.4 % (Normal) Range: 4.6 - 7.1 :21 Blood Glucose , Office (54321) Blood Glucose , Office 167 (Normal) :01 Microscopic Examination Comments: PATIENT WAS FASTINGPERFORMED BY: [address] [id number] Bacteria Few (Normal) Mucus Threads Present (Normal) Epithelial Cells (non renal) 0-10 {/hpf} (Normal) Range: 0 - 10 RBC 0-2 {/hpf} (Normal) Range: 0 - 2 WBC 6-10 {/hpf} (Abnormal) Range: 0 - 5 :50 Antinuclear Antibodies Direct Comments: PATIENT NOT FASTINGPERFORMED BY: [facility]6370 [facility] [id number] HEIDI Direct Negative (Normal) : C-Reactive Protein, 7.3 mg/L (Abnormal) Comments: PATIENT NOT FASTINGPERFORMED BY: [place] 6031270 [facility] [id number] 50 Quant Range: 0.0-4.9 :50 CBC, Platelet, No Differential Comments: PATIENT NOT FASTINGPERFORMED BY: [address] [id number] Platelets 253 {x10E3/uL} (Normal) Range: 150-379 RDW [...] Panel (14) Comments: PATIENT NOT FASTINGPERFORMED BY: [employer] Agxkro0386 [facility] [id number] Information: [id number] ALT (SGPT) 17 [iU]/L (Normal) Range: 0-32 [...] ng/mL (Normal) Comments: PATIENT NOT FASTINGPERFORMED BY: [employer] Jzdqcp8346 [facility] [id number] 50 Serum Comments: A serum folate concentration of less than 3.1 ng/mL isconsidered to represent clinical deficiency. :50 Rheumatoid Arthritis Factor Comments: PATIENT NOT FASTINGPERFORMED BY: [employer] Oezrjz3724 [facility] [id number] RA Latex Turbid. 10.5 {IU/mL} Range: 0.0-13.9 (Normal) Sedimentation 7 mm/h (Normal) Comments: PATIENT NOT FASTINGPERFORMED BY: [facility]6370 [facility] [id number] :50 Rate-Westergren Range: 0-40 TSH 2.450 {uIU/mL} Comments: PATIENT NOT FASTINGPERFORMED BY: LabWal[facility]. [facility]6370 [facility] [id number] :50 (Normal) Range: 0.450-4.500 Vitamin B12 1684 pg/mL Comments: PATIENT NOT FASTINGPERFORMED BY: [facility]6370 [facility] [id number] :50 (Abnormal) Range: 211-946 Vitamin D, 25-Hydroxy 75.1 ng/mL Comments: PATIENT NOT FASTINGPERFORMED BY: [facility]6370 [facility] [id number] :50 (Normal) Range: 30.0-100.0 Comments: Vitamin D deficiency has been defined by the [place] ofMedicine and an Endocrine Society practice guideline as alevel of serum 25-OH vitamin D less than 20 ng/mL (1,2).The Endocrine Society went on to further define vitamin Dinsufficiency as a level between 21 and 29 ng/mL (2).1. IOM ([place]o of Medicine). 2010. Dietary reference intakes for calcium and D. [place]: The National Academies Press.2. Stephon MF, Ana [place], [place] ROMERO, et al. Evaluation, treatment, and prevention of vitamin D deficiency: an Endocrine Society clinical practice guideline. JCEM. 2010; 96(7):1911-30. :57 Lower Respiratory Culture Comments: PATIENT NOT FASTINGPERFORMED BY: [facility]6370 [facility] [id number] Information: SRC:[facility] [id number] Result 1 RRF (Normal) Comments: Routine respiratory hermelidno Lower Respiratory Culture Final report (Normal) :01 MICROALBUMIN: CREATININE RATIO Comments: PATIENT WAS FASTINGPERFORMED BY: [employer] Wwheeu9837 [facility] [id number] (44407) AND (89512) Microalb/Creat Ratio 22.8 {mg/g_creat} (Normal) Range: 0.0-30.0 Microalbumin, Urine 18.8 ug/mL (Abnormal) Range: 0.0-17.0 Creatinine, Urine 82.6 mg/dL (Normal) Range: 15.0-278.0 : URINALYSIS (41572) Comments: PATIENT WAS FASTINGPERFORMED BY: [employer] Whvmuy9339 [facility] [id number] Microscopic Examination See below: (Normal) Comments: Microscopic was indicated and was performed. Nitrite, Urine Negative (Normal) Urobilinogen,Semi-Qn 0.2 mg/dL (Normal) Range: 0.0-1.9 Bilirubin Negative (Normal) Occult Blood Negative (Normal) Ketones Negative (Normal) Glucose 2+ (Abnormal) Protein Negative (Normal) WBC Esterase Trace (Abnormal) Appearance Clear (Normal) Urine-Color Yellow (Normal) pH 6.5 (Normal) Range: 5.0-7.5 Specific [place] 1.020 (Normal) Range: 1.005-1.030 :01 Metabolic Panel, Comments: PATIENT WAS FASTINGPERFORMED BY: Sychron Advanced TechnologiesMercy Hospital St. Louis Sspasq6152 [facility] [id number] Information: [id number] Comprehensive (81373) ALT (SGPT) 17 [iU]/L (Normal) Range: 0-32 [...] 110 mg/dL (Abnormal) Range: 65-99 :01 CALCIFEDIOL (12249) Comments: PATIENT WAS FASTINGPERFORMED BY: ShopSavvy70 Geeklist [facility] HospitalWikidotCount includes the [facility] [id number] Vitamin D, 25-Hydroxy 101.0 ng/mL (Abnormal) Range: 30.0-100.0 Comments: Vitamin D deficiency has been defined by the Hugo ofMedicine and an Endocrine Society practice guideline as alevel of serum 25-OH vitamin D less than 20 ng/mL (1,2).The Endocrine Society went on to further define vitamin Dinsufficiency as a level between 21 and 29 ng/mL (2).1. IOM (Hugo of Medicine). 2010. Dietary reference intakes for calcium and D. [place]: The National Academies Press.2. Stephon MF, Ana NC, Alka ROMERO, et al. Evaluation, treatment, and prevention of vitamin D deficiency: an Endocrine Society clinical practice guideline. JCEM. 2010; 96(7):1911-30. :01 Lipid Panel (51087) Comments: PATIENT WAS FASTINGPERFORMED BY: LineHop6370 [facility] [id number] LDL/HDL Ratio 1.4 {ratio_units} (Normal) Range: 0.0-3.2 [...] (Normal) Range: 100-199 :06 HgA1C , Office (36332) HgA1C , Office 6.4 % (Normal) Range: 4.6 - 7.1 :06 Blood Glucose , Office (37778) Blood Glucose , Office 168 (Normal) :43 CBC W/Diff, Automated Comments: Test performed at:[facility] Yqdrmtsyge6878 [place] [address] Absolute Lymph 1.33 {X10_3/ul} (Normal) Range: 0.83-4.51 [...] Range: 4.4-11.0 :43 Magnesium Comments: Test performed at:[facility] B[address] [place] [address] 13709 MG 1.6 mg/dL (Abnormal) Range: 1.8-2.4 :43 Protein+Creatinine Ratio,Urine Comments: Test performed at:[facility] Yq[address] [place] [address] [id number] PROT:CRE RATIO 143 {mg/g_CRE} (Normal) Range: 0-200 PROTEIN,UR.RAN. 16.0 mg/dL (Abnormal) UR CREAT 111.6 mg/dL (Normal) :43 Renal Profile Comments: Test performed at:[facility] Jvmy[address] [place] [address] 103761 CO2 29.0 mmol/L (Normal) Range: 21.0-32.0 CL [...] criteria. :43 Uric Acid Comments: Test performed at:[facility] Vsasnrvdqm[address] [place], [place] [id number] URIC 7.5 mg/dL (Abnormal) Range: 2.6-6.0 :43 Vitamin D,25 Hydroxy Comments: Test performed at:[facility] Azwhanigrl[address] [place], [place] [id number] Vitamin D 25-OH 48.0 ng/mL (Normal) Comments: Vitamin D 25(OH) Status Range Deficiency <20 ng/mL (50nmol/L) Insuffciency 20 - 30 ng/mL (50 - 75 nmol/L) Sufficiency 30 - 100 ng/mL (75 - 250 nmol/L) Toxicity >100 ng/mL (>250 nmol/L) :16 HgA1C , Office (82636) HgA1C , Office 5.6 % (Normal) Range: 4.6 - 7.1 :16 Blood Glucose , Office (97871) Blood Glucose , Office 113 (Normal) :35 CALCIUM SERUM (90747) Comments: PATIENT NOT FASTINGPERFORMED BY: Biocontrol[address] [id number] Information: [id number] Calcium, Serum 10.0 mg/dL (Normal) Range: 8.6-10.2 :55 HEIDI Negative (Normal) Comments: Performed at: [facility] [employer] [id number] Director: Taurus Morrissey MD, Phone: [phone] :[phone] CBCD ALC 1.15 {X10_3/ul} (Normal) Range: [...] ttHEBSAG Negative (Normal) Comments: Performed at: - Lab[address] [id number] Director: Taurus Morrissey MD, Phone: [phone] at: [facility] LabCo[address] [id number] 1Lab Director: Juan Carlos Mathew MD, Phone: [phone] :[phone] HECAB tHECAB 0.1 {s/co_ratio} (Normal) Range: 0.0-0.9 Comments: Negative: < 0.8Indeterminate 0.8 - 0.9Positive: > 0.9In order to reduce the incidence of a false positiveresult, the CDC recommends that all s/co ratiosbetween 1.0 and 10.9 be confirmed by a more specificsupplemental or PCR testing. [facility]Mer[facility] St[facility] offers HCV Abw/Reflex to Verification test #[id number]. :55 RF < 10.0 {IU/mL} (Normal) :55 SED tSEDRATE 7 mm/h (Normal) Range: 0-30 :55 VITD 45.5 mg/mL (Normal) Comments: Vitamin D 25(OH) Status RangeDeficiency <20 ng/mL (50nmol/L)Insuffciency 20 - 30 ng/mL (50 - 75 nmol/L)Sufficiency 30 - 100 ng/mL (75 - 250 nmol/L)Toxicity >100 ng/mL (>250 nmol/L) :05 CALCIFEDIOL (04747) Comments: PATIENT NOT FASTINGPERFORMED BY: [facility]6370 [facility] [id number] Information: [id number] Vitamin D, 25-Hydroxy 34.1 ng/mL (Normal) Range: 30.0-100.0 Comments: Vitamin D deficiency has been defined by the Hugo ofOhiohealth Grove City Methodist Hospitalcine and an Endocrine Society practice guideline as alevel of serum 25-OH vitamin D less than 20 ng/mL (1,2).The Endocrine Society went on to further define vitamin Dinsufficiency as a level between 21 and 29 ng/mL (2).1. IOM (Hugo of Medicine). 2010. Dietary reference intakes for calcium and D. [place]: The National Academies Press.2. Stephon MF, Ana NC, Alka ROMERO, et al. Evaluation, treatment, and prevention of vitamin D deficiency: an Endocrine Society clinical practice guideline. JCEM. 2010; 96(7):1911-30. :05 CALCIUM SERUM (05560) Comments: PATIENT NOT FASTINGPERFORMED BY: [facility]6370 [facility] [id number] Calcium, Serum 10.3 mg/dL (Abnormal) Range: 8.6-10.2 :43 CALCIFIDIOL (95498) VIT D Comments: PATIENT NOT FASTINGPERFORMED BY: [facility]6370 [facility] [id number] Information: [id number] 25 Vitamin D, 25-Hydroxy 44.7 ng/mL (Normal) Range: 30.0-100.0 Comments: Vitamin D deficiency has been defined by the Hugo ofMedicine and an Endocrine Society practice guideline as alevel of serum 25-OH vitamin D less than 20 ng/mL (1,2).The Endocrine Society went on to further define vitamin Dinsufficiency as a level between 21 and 29 ng/mL (2).1. IOM (Hugo of Medicine). 2010. Dietary reference intakes for calcium and D. [place]: The National Academies Press.2. Stephon MF, Ana ROY, Alka ROMERO, et al. Evaluation, treatment, and prevention of vitamin D deficiency: an Endocrine Society clinical practice guideline. JCEM. 2010; 96(7):1911-30. 37-Rxt-560275:36 URINE CALCIUM KAITLIN TIMED Comments: PATIENT NOT FASTINGPERFORMED BY: Sychron Advanced TechnologiesWalter P. Reuther Psychiatric Hospital6370 [facility] [id number] Information: [id number] 1950ML START 05/21@630AM FINISH 05/22/14@6 30AM 24 Hour (29612) Calcium, Urine 24hr 93.6 {mg/24_hr} (Abnormal) Range: 100.0-300.0 Calcium, Urine 4.8 mg/dL (Normal) 95-Ysa-270682:43 PARATHORMONE (62226) Comments: PATIENT NOT FASTINGPERFORMED BY: [facility] Advanced TechnologiesWalter P. Re[facility] Hospital6370 [facility] [id number] PTH, Intact 22 pg/mL (Normal) Range: 15-65 22-Zdz-27692:56 Metabolic Panel, Basic Comments: drawn next ; PATIENT NOT FASTINGPERFORMED BY: S[facility] Advanced TechnologiesWalter P. Reuther Psych[facility] Hospital6370 [facility] [id number] Information: [id number] (00087) Calcium, Serum 10.5 mg/dL (Abnormal) Range: 8.6-10.2 [...] Glucose, Serum 113 mg/dL (Abnormal) Range: 65-99 1-Vqp-584094:50 METABOLIC PANEL, Comments: PATIENT NOT FASTINGPERFORMED BY: LabCoMountain View Regional Medical CenterViwljy2595 [facility] [id number] Information: [id number] COMPREHENSIVE (27562) ALT (SGPT) 22 [iU]/L (Normal) Range: 0-32 [...] (Abnormal) Range: 65-99 :13 HgA1C , Office (98447) HgA1C , Office 6.5 % (Normal) Range: 4.6 - 7.1 :13 Blood Glucose , Office (54207) Blood Glucose , Office 163 (Normal) :41 [...] CREATININE RATIO Comments: PATIENT WAS FASTINGPERFORMED BY: FormotusCount includes the [facility] [id number] (49307) AND (31820) Microalb/Creat Ratio 6.2 {mg/g_creat} (Normal) Range: 0.0-30.0 Microalbumin, Urine 2.2 ug/mL (Normal) Range: 0.0-17.0 Creatinine, Urine 35.7 mg/dL (Normal) Range: 15.0-278.0 :38 URINALYSIS (23258) Comments: PATIENT WAS FASTINGPERFORMED BY: LineHop6370 [facility]noticeB[facility] [id number] Microscopic Examination MICRON (Normal) Comments: Microscopic follows if indicated. Nitrite, Urine Negative (Normal) Urobilinogen,Semi-Qn 0.2 mg/dL (Normal) Range: 0.0-1.9 Bilirubin Negative (Normal) Occult Blood Negative (Normal) Ketones Negative (Normal) Glucose Negative (Normal) Protein Negative (Normal) WBC Esterase Negative (Normal) Appearance Clear (Normal) Urine-Color Yellow (Normal) pH 7.5 (Normal) Range: 5.0-7.5 Specific [place] 1.010 (Normal) Range: 1.005-1.030 :38 CALCIFEDIOL (56814) Comments: PATIENT WAS FASTINGPERFORMED BY: CloudSyncBlowing Rock Hospital [id number] Vitamin D, 25-Hydroxy 44.7 ng/mL (Normal) Range: 30.0-100.0 Comments: Vitamin D deficiency has been defined by the Hugo ofMedicine and an Endocrine Society practice guideline as alevel of serum 25-OH vitamin D less than 20 ng/mL (1,2).The Endocrine Society went on to further define vitamin Dinsufficiency as a level between 21 and 29 ng/mL (2).1. IOM (Hugo of Medicine). 2010. Dietary reference intakes for calcium and D. [place]: The National Academies Press.2. Stephon MF, Ana ROY, Alka ORMERO, et al. Evaluation, treatment, and prevention of vitamin D deficiency: an Endocrine Society clinical practice guideline. JCEM. 2010; 96(7):1911-30. :38 TSH (58225) Comments: PATIENT WAS FASTINGPERFORMED BY: [facility]Co Yoatxd8316 [facility] [id number] TSH 2.930 {uIU/mL} (Normal) Range: 0.450-4.500 :38 CBC with manual diff Comments: PATIENT WAS FASTINGPERFORMED BY: [facility]Co Mqnwxi6882 [facility] [id number] Information: [id number] (38170) Immature Grans (Abs) 0.0 {x10E3/uL} (Normal) Range: [...] Comprehensive Comments: PATIENT WAS FASTINGPERFORMED BY: [facility] Ymqxfb8590 [facility] [id number] (41353) ALT (SGPT) 22 [iU]/L (Normal) Range: 0-32 [...] Glucose, Serum 92 mg/dL (Normal) Range: 65-99 63-Tcb-35253:38 Lipid Panel (14511) Comments: PATIENT WAS FASTINGPERFORMED BY: BiocontrolRobert Wood Johnson University Hospital at HamiltonCbyidb3146 [facility] [id number] LDL/HDL Ratio 1.2 {ratio_units} (Normal) Range: 0.0-3.2 LDL Cholesterol Calc 53 mg/dL (Normal) Range: 0-99 VLDL Cholesterol Yamilka 27 mg/dL (Normal) Range: 5-40 HDL Cholesterol 45 mg/dL (Normal) Comments: According to ATP-III Guidelines, HDL-C >59 mg/dL is considered anegative risk factor for CHD. Triglycerides 135 mg/dL (Normal) Range: 0-149 Cholesterol, Total 125 mg/dL (Normal) Range: 100-199 23-Oph-58265:05 LIPID PANEL (79783) Comments: PATIENT WAS FASTINGPERFORMED BY: BiocontrolRobert Wood Johnson University Hospital at HamiltonHbudaq0198 [facility] [id number] Information: [id number] LDL/HDL Ratio 1.6 {ratio_units} (Normal) Range: 0.0-3.2 LDL Cholesterol Calc 76 mg/dL (Normal) Range: 0-99 VLDL Cholesterol Yamilka 30 mg/dL (Normal) Range: 5-40 HDL Cholesterol 49 mg/dL (Normal) Comments: According to ATP-III Guidelines, HDL-C >59 mg/dL is considered anegative risk factor for CHD. Triglycerides 148 mg/dL (Normal) Range: 0-149 Cholesterol, Total 155 mg/dL (Normal) Range: 100-199 17-Dxb-550157:43 FECAL OCCULT HGB ASSAY- tubes sent home (55629) FECAL OCCULT HGB ASSAY, QUAL, 1-3 SIMULTANEOU negative (Normal) 66-Xwn-242533:40 Nuclear Stress Test Radiology Report See Note [...] The patient was injected with 31.6 mCi [id number] Cardiolite and subsequently stress SPECT Cardiolite nuclear [...] Wiliam MASON by Mayur FELIX,Yosi on 07/29/13 9076 Sign by: Yosi Merchant MD 11-Qzi-98199:52 KNEE 1 OR 2 VIEWS Radiology Report [...] Ferguson M.D.July 29, 2013 at 5:00:35 PM [id number] Signed RU/RU If you are the referring phys ician and would like to consult with theradiologist who provided this interpretation, please contact Alejandro Horton at [phone]. If this radiologist is unavailable, youwillbe directed to [facility] radiologist to assist. If you are a patient with a question regarding this report, pleasecontactyour referring physician directly. Professional Interpretation Provided By: Arnica, Phone , These documents contain legally protected [...] on 07/29/131714 Si gn by: Ag Ferguson 44-Hcz-63223:52 KNEE 1 OR 2 VIEWS Radiology Report [...] Ferguson M.D.July 29, 2013 at 5:02:45 PM [id number] Signed RU/RU If you are the referring physician and would like to consult with therad iologist who provided this interpretation, please contact Alejnadro Horton at [phone]. If this radiologist is unavailable, youwillbe directed to another radiologist to assist. If you are a sandra ent with a question regarding this report, pleasecontactyour referring physician directly. Professional Interpretation Provided By: Arnica, Phone , These documents con tain legally [...] Ferguson on 07/29/131716 Sign by: Ag Ferguson 23-Ulr-425667:27 CCP ANTIBODY (10204) Comments: PATIENT NOT FASTINGPERFORMED BY: Bondsy LabFleetMatics6370 [facility] [id number] BY: [employer] [id number] CCP Antibodies IgG/IgA 5 {units} (Normal) Range: 0-19 Comments: Negative <20 Weak positive 20 - 39 Moderate positive 40 - 59 Strong positive >59 27-Lrr-073732:27 SED RATE ERYTHROCYTE Comments: PATIENT NOT FASTINGPERFORMED BY: NLP Logixrp Qiadzc6530 [facility] [id number] BY: [employer] [id number] (22214) Sedimentation Rate-Westergren 2 mm/h (Normal) Range: 0-40 81-Ujs-919347:27 C-REACTIVE PROTEIN Comments: PATIENT NOT FASTINGPERFORMED BY: Bondsy LabReCept Holdingsrp Igkhpz0877 [facility] [id number] BY: [employer] [id number] (31644) C-Reactive Protein, Quant 2.1 mg/L (Normal) Range: 0.0-4.9 82-Ecz-874010:27 TSH (53918) Comments: PATIENT NOT FASTINGPERFORMED BY: CB LabReCept Holdingsrp Akvqnx1345 [facility] [id number] BY: [address] [id number] TSH 1.630 {uIU/mL} (Normal) Range: 0.450-4.500 00-Bfs-306332:27 RHEUMATOID FACTOR-QUANT Comments: PATIENT NOT FASTINGPERFORMED BY: BiocontrolTracey Ville 0206270 [facility] [id number] BY: [address] [id number] (23190) RA Latex Turbid. 9.7 {IU/mL} (Normal) Range: 0.0-13.9 96-Zwi-188673:27 HEIDI (ANTINUCLEAR ANTIBODY) Comments: PATIENT NOT FASTINGPERFORMED BY: LabReCept HoldingsTracey Ville 0206270 [facility] [id number] BY: [address] [id number] (32293) HEIDI Direct Negative (Normal) :27 CBC WITH MANUAL DIFF Comments: PATIENT NOT FASTINGPERFORMED BY: Biocontrol[address] [id number] BY: [address] [id number] Inf ormation: [id number] (35136) Immature Grans (Abs) 0.0 {x10E3/uL} (Normal) Range: [...] 3.77-5.28 WBC 8.5 {x10E3/uL} (Normal) Range: 4.0-10.5 54-Rof-162247:27 METABOLIC PANEL, Comments: PATIENT NOT FASTINGPERFORMED BY: CB [facility] Mlmpie1197 [facility] [id number] BY: BN [facility] [address] [id number] [facility] (42423) ALT (SGPT) 24 [iU]/L (Normal) Range: 0-32 [...] (Normal) Range: 65-99 :22 HgA1C , Office (77367) HgA1C , Office 5.9 % (Normal) Range: 4.6 - 7.1 :22 Blood Glucose , Office (20394) Blood Glucose , Office 148 (Normal) Comments: non fasting :44 MAGNESIUM (19579) Comments: copy to dr jose mayes; PATIENT NOT FASTINGPERFORMED BY: ShopSavvy70 [facility] [id number] Magnesium, Serum 2.0 mg/dL (Normal) Range: 1.6-2.6 :44 Metabolic Panel, Basic Comments: copy to dr jose Mayes; PATIENT NOT FASTINGPERFORMED BY: Bondsy LabReCept Holdings Wlsdrr3651 [facility] [id number] Information: [id number] (95545) Calcium, Serum 10.1 mg/dL (Normal) Range: 8.6-10.2 [...] Glucose, Serum 141 mg/dL (Abnormal) Range: 65-99 96-Nvg-410653:10 PTT (Activated Partial Comments: PATIENT NOT FASTINGPERFORMED BY: [place] 6031270 [facility] [id number] Thromboplastin Time) (62862) aPTT 30 {sec} (Normal) Range: 24-33 Comments: This test has not been validated for monitoring unfractionated heparintherapy. aPTT-based therapeutic ranges for unfractionated heparintherapy have not been established. For general guidelines onHeparin monitoring, refer to the [facility] Directory of Services. 61-Qay-097763:10 PT (Prothrobim Time) Comments: PATIENT NOT FASTINGPERFORMED BY: [address] [id number] Information: [id number] (97968) Prothrombin Time 10.4 {sec} (Normal) Range: 9.1-12.0 INR 1.0 (Normal) Range: 0.8-1.2 Comments: Reference interval is for non-anticoagulated patients. . Suggested INR therapeutic range for Vitamin K anta gonist therapy: Standard Dose (moderate intensity therapeutic range): 2.0 - 3.0 Higher intensity therapeutic range 2.5 - 3.5 46-Zgi-043465:10 Potassium Serum (56845) Comments: PATIENT NOT FASTINGPERFORMED BY: [place] 6031270 [facility] [id number] Potassium, Serum 3.9 mmol/L (Normal) Range: 3.5-5.2 82-Gdy-939506:10 Magnesium (43597) Comments: PATIENT NOT FASTINGPERFORMED BY: [place] 6031270 [facility] [id number] Magnesium, Serum 1.9 mg/dL (Normal) Range: 1.6-2.6 :59 HgA1C , Office (27867) HgA1C , Office 5.7 % (Normal) Range: 4.6 - 7.1 :59 Blood Glucose , Office (31480) Blood Glucose , Office 149 (Normal) :08 TSH (21078) Comments: PATIENT WAS FASTINGPERFORMED BY: [address] [id number] TSH 2.390 {uIU/mL} (Normal) Range: 0.450-4.500 :08 URINALYSIS, W/ MICRO (83564) Comments: PATIENT WAS FASTINGPERFORMED BY: BiocontrolRobert Wood Johnson University Hospital at HamiltonRjurij5327 [facility] [id number] Microscopic Examination See below: (Normal) Microscopic Examination MICRON (Normal) Comments: Microscopic follows if indicated. Nitrite, Urine Negative (Normal) Urobilinogen,Semi-Qn 0.2 mg/dL (Normal) Range: 0.0-1.9 Bilirubin Negative (Normal) Occult Blood Negative (Normal) Ketones Negative (Normal) Glucose Negative (Normal) Protein Negative (Normal) Appearance Clear (Normal) WBC Esterase Negative (Normal) pH 7.5 (Normal) Range: 5.0-7.5 Specific [place] 1.013 (Normal) Range: 1.005-1.030 Urine-Color Yellow (Normal) :08 MICROALBUMIN: CREATININE RATIO Comments: PATIENT WAS FASTINGPERFORMED BY: BiocontrolMountain View Regional Medical CenterOtrtet6854 [facility] [id number] (11116) AND (04395) Microalb/Creat Ratio 3.8 {mg/g_creat} (Normal) Range: 0.0-30.0 Microalbumin, Urine 2.9 ug/mL (Normal) Range: 0.0-17.0 Creatinine, Urine 77.3 mg/dL (Normal) Range: 15.0-278.0 :08 METABOLIC PANEL, COMPREHENSIVE Comments: PATIENT WAS FASTINGPERFORMED BY: BiocontrolRobert Wood Johnson University Hospital at HamiltonTjwvto9059 [facility] [id number] (89819) ALT (SGPT) 17 [iU]/L (Normal) Range: 0-32 [...] mg/dL (Abnormal) Range: 65-99 :08 LIPID PANEL (01341) Comments: PATIENT WAS FASTINGPERFORMED BY: Qubrit [facility] [id number] LDL/HDL Ratio 2.1 {ratio_units} (Normal) Range: 0.0-3.2 [...] MANUAL DIFF Comments: PATIENT WAS FASTINGPERFORMED BY: [employer] Vavkvv6393 [facility] [id number] Information: ADD [id number] AND DRAW FEE 99 0603 (08006) Immature Grans (Abs) 0.0 {x10E3/uL} (Normal) Range: [...] Microscopic Examination Comments: PATIENT WAS FASTINGPERFORMED BY: LabCoRobert Wood Johnson University Hospital at HamiltonPgvvjh2303 [facility] [id number] Bacteria None seen (Normal) Mucus Threads Present (Normal) Epithelial Cells (non renal) 0-10 {/hpf} (Normal) Range: 0 - 10 RBC 0-3 {/hpf} (Normal) Range: 0 - 3 WBC 0-5 {/hpf} (Normal) Range: 0 - 5 :49 HgA1C , Office (73536) HgA1C , Office 5.8 % (Normal) Range: 4.6 - 7.1 43-Nbk-90699:49 Blood Glucose , Office (07230) Blood Glucose , Office 142 (Normal) 0-Noj-424807:13 ALFONZO CULTURE-OTHER (03335) Comments: PATIENT NOT FASTINGPERFORMED BY: Sychron Advanced TechnologiesWilliam Ville 4125270 [facility] [id number] Information: SRC:THRT [id number] Result 1 RRF (Normal) Comments: Routine respiratory hermelindo Upper Respiratory Culture Final report (Normal) 9-Xna-221091:30 Rapid Strep Test, Office (64459) Rapid Strep Test, Office Negative (Normal) 86-Kdb-531555:36 URIC ACID BLOOD (60575) Comments: PATIENT NOT FASTINGPERFORMED BY: [employer] [id number] Information: [id number] Uric Acid, Serum 6.6 mg/dL (Normal) Range: 2.5-7.1 Comments: Therapeutic target for gout patients: <6.0 :29 Blood Glucose , Office (10644) Blood Glucose , Office 128 (Normal) :29 HgA1C , Office (00270) HgA1C , Office 5.5 % (Normal) Range: 4.6 - 7.1 93-Bwk-133244:11 HgA1C , Office (31247) HgA1C , Office 5.5 % (Normal) Range: 4.6 - 7.1 78-Zlr-913067:11 Blood Glucose , Office (52567) Blood Glucose , Office 127 (Normal) :35 Microscopic Examination Comments: PATIENT WAS FASTINGPERFORMED BY: Sychron Advanced TechnologiesWalter P. Reuther Psychiatric Hospital6370 [facility] [id number] Bacteria Few (Normal) Mucus Threads Present (Normal) Cast Type Hyaline casts (Normal) Casts Present {/lpf} (Abnormal) Epithelial Cells (non renal) 0-10 {/hpf} (Normal) Range: 0 - 10 RBC 0-3 {/hpf} (Normal) Range: 0 - 3 WBC 6-10 {/hpf} (Abnormal) Range: 0 - 5 :35 TSH (23444) Comments: PATIENT WAS FASTINGPERFORMED BY: [facility]6370 [facility] [id number] TSH 1.550 {uIU/mL} (Normal) Range: 0.450-4.500 :35 URINALYSIS, W/ MICRO (25931) Comments: PATIENT WAS FASTINGPERFORMED BY: [facility]6370 [facility] [id number] Microscopic Examination See below: (Normal) Nitrite, Urine Negative (Normal) Urobilinogen,Semi-Qn 0.2 mg/dL (Normal) Range: 0.0-1.9 Bilirubin Negative (Normal) Occult Blood Negative (Normal) Ketones Negative (Normal) Glucose Negative (Normal) Protein Negative (Normal) WBC Esterase 1+ (Abnormal) Appearance Clear (Normal) Urine-Color Yellow (Normal) pH 6.5 (Normal) Range: 5.0-7.5 Specific [place] 1.019 (Normal) Range: 1.005-1.030 :35 MICROALBUMIN: CREATININE RATIO Comments: PATIENT WAS FASTINGPERFORMED BY: [facility]6370 [facility] [id number] (28657) AND (57848) Microalb/Creat Ratio 7.8 {mg/g_creat} (Normal) Range: 0.0-30.0 Microalbumin, Urine 17.2 ug/mL (Abnormal) Range: 0.0-17.0 Creatinine, Urine 220.8 mg/dL (Normal) Range: 15.0-278.0 :35 METABOLIC PANEL, COMPREHENSIVE Comments: PATIENT WAS FASTINGPERFORMED BY: [facility]6370 [facility] [id number] (17516) ALT (SGPT) 17 [iU]/L (Normal) Range: 0-40 [...] mg/dL (Normal) Range: 65-99 :35 LIPID PANEL (07352) Comments: PATIENT WAS FASTINGPERFORMED BY: [employer]70 [employer] TechnologiesCount includes the [facility] [id number] LDL/HDL Ratio 1.0 {ratio_units} (Normal) Range: 0.0-3.2 [...] MANUAL DIFF Comments: PATIENT WAS FASTINGPERFORMED BY: [employer]vy70 [facility] [id number] Information: [id number] (17602) Immature Grans (Abs) 0.0 {x10E3/uL} (Normal) Range: [...] (Normal) Range: 4.0-10.5 :33 HgA1C , Office (64884) HgA1C , Office 5.7 % (Normal) Range: 4.6 - 7.1 :33 Blood Glucose , Office (67142) Blood Glucose , Office 115 (Normal) 93-Dem-510492:50 KIDNEY Radiology Report See Note (Normal) Comments: [...] 07/19/11 0430 Sign by: Marciano Fountain MD 78-Xda-436764:50 PARATHORMONE (83253) Comments: PATIENT NOT FASTINGPERFORMED BY: LabCoRobert Wood Johnson University Hospital at HamiltonBejmpj3026 [facility] [id number] PTH, Intact 20 pg/mL (Normal) Range: 15-65 83-Kws-025294:50 Metabolic Panel, Comments: PATIENT NOT FASTINGPERFORMED BY: PRATIMA [facility] Oofjss4474 SSM DePaul [facility] [id number] Information: [id number] Comprehensive (46751) ALT (SGPT) 23 [iU]/L (Normal) Range: 0-40 [...] Glucose, Serum 94 mg/dL (Normal) Range: 65-99 11-Ozc-929428:06 Metabolic Panel, Comments: PATIENT NOT FASTINGPERFORMED BY: [employer]oc[employer] Ciujqc1673 [facility] [id number] Information: [id number] Comprehensive (04891) ALT (SGPT) 30 [iU]/L (Normal) Range: 0-40 [...] METABOLIC PANEL, Comments: PATIENT WAS FASTINGPERFORMED BY: Avedro6370 [facility] [id number] Information: [id number] COMPREHENSIVE (17483) ALT (SGPT) 27 [iU]/L (Normal) Range: 0-40 [...] Glucose, Serum 85 mg/dL (Normal) Range: 65-99 42-Guk-30137:17 LIPID PANEL (34247) Comments: PATIENT WAS FASTINGPERFORMED BY: LabCoRobert Wood Johnson University Hospital at HamiltonWsfknv9151 [facility] [id number] LDL/HDL Ratio 1.1 {ratio_units} (Normal) Range: 0.0-3.2 LDL Cholesterol Calc 46 mg/dL (Normal) Range: 0-99 VLDL Cholesterol Yamilka 28 mg/dL (Normal) Range: 5-40 HDL Cholesterol 41 mg/dL (Normal) Comments: According to ATP-III Guidelines, HDL-C >59 mg/dL is considered anegative risk factor for CHD. Triglycerides 140 mg/dL (Normal) Range: 0-149 Cholesterol, Total 115 mg/dL (Normal) Range: 100-199 :38 Blood Glucose , Office (88932) Blood Glucose , Office 132 (Normal) :38 HgA1C , Office (37684) HgA1C , Office 5.7 % (Normal) Range: 4.6 - 7.1 45-Vuw-964039:01 BILAT SCRN DIGITAL & CAD Radiology Report [...] 1051 S ign by: Anam Larios MD 71-Ihn-368101:01 DEXA BONE DENSITY STUDY (HP) Radiology Report [...] FECAL OCCULT HGB ASSAY- tubes sent home (28189) FECAL OCCULT HGB ASSAY, QUAL, 1-3 SIMULTANEOU negative (Normal) :32 HgA1C , Office (13542) HgA1C , Office 8.6 % (Abnormal) Range: 4.6 - 7.1 :32 Blood Glucose , Office (81702) Blood Glucose , Office 324 (Normal) :30 [...] {uIU/mL} (Normal) Range: 0.358-3.74 :45 CULTURE, SPUTUM (19508) Comments: PATIENT NOT FASTINGPERFORMED BY: LabWalter P. [facility]uther [facility] Hospital6370 [facility] [id number] Information: SRC:[facility] [id number] Result 1 RRF (Normal) Comments: Routine respiratory hermelindo Lower Respiratory Culture Final report (Normal) :48 HgA1C , Office (33490) HgA1C , Office 5.8 % (Normal) Range: 4.6 - 7.1 :48 Blood Glucose , Office (22719) Blood Glucose , Office 124 (Normal) :20 CHEST WITH CONTRAST Radiology Report See Note (Normal) Comments: Exam Number: [id number] CLINICAL:Sarcoidosis, shortness of breath, wheezing CT CHEST [...] allunchanged. Previous cholecystectomy? Reported By: PO MANCILLA 35-Vno-33546:15 SERUM CRE & GFR EST GFR - AA 65 mL/min (Normal) EST GFR 54 mL/min (Abnormal) CREAT,SERUM 1.1 mg/dL (Abnormal) Range: 0.6-1.0 61-Ywc-712238:42 CHEST, PA AND LATERAL (MT) Radiology Report See Note (Normal) Comments: Exam Number: [id number] CHEST X- RAY PA AND LATERAL VIEWS [...] moderate dextroscoliotic curvature. Reported By: Joseph Núñez 07-Ncc-983940:15 MAGNESIUM (20118) Comments: PATIENT NOT FASTINGPERFORMED BY: ShopSavvy70 KnoticeBlowing Rock Hospital [id number] Magnesium, Serum 2.1 mg/dL (Normal) Range: 1.6-2.6 96-Hwa-166683:15 Renal function Panel Comments: PATIENT NOT FASTINGPERFORMED BY: LineHop6370 [facility] [id number] Information: [id number] (96935) Albumin, Serum 4.7 g/dL (Normal) Range: 3.5-5.5 [...] (Abnormal) Range: 65-99 :46 HgA1C , Office (38921) HgA1C , Office 6.0 % (Normal) Range: 4.6 - 7.1 :46 Blood Glucose , Office (53504) Blood Glucose , Office 140 (Normal) :27 [...] T PROT 7.8 g/dL (Normal) Range: 6.4-8.2 46-Qpa-082636:11 CBC with manual diff Comments: PATIENT NOT FASTINGPERFORMED BY: LabCoRobert Wood Johnson University Hospital at HamiltonThovvh5790 [facility] [id number] Information: [id number] (09399) Baso (Absolute) 0.0 {x10E3/uL} (Normal) Range: 0.0-0.2 [...] 3.80-5.10 WBC 9.0 {x10E3/uL} (Normal) Range: 4.0-10.5 54-Ejj-715256:55 Microscopic Examination Comments: PATIENT WAS FASTINGPERFORMED BY: S7 [facility] [id number] BY: Biocontrol HitFixKansas City VA Medical Center [id number] Bacteria Few (Normal) Cast Type Hyaline casts (Normal) Mucus Threads Present (Normal) Casts Present {/lpf} (Abnormal) Epithelial Cells (non renal) 0-10 {/hpf} (Normal) Range: 0 - 10 RBC 0-3 {/hpf} (Normal) Range: 0 - 3 WBC 0-5 {/hpf} (Normal) Range: 0 - 5 81-Ude-135635:34 HgA1C , Office (31298) HgA1C , Office 5.9 % (Normal) Range: 4.6 - 7.1 73-Bxd-417468:34 Blood Glucose , Office (81107) Blood Glucose , Office 140 (Normal) 72-Pxd-153141:55 TSH (85394) Comments: PATIENT WAS FASTINGPERFORMED BY: S7 Medlert2500 [facility] [id number] BY: BiocontrolRobert Wood Johnson University Hospital at HamiltonJmalye5355 [facility] [id number] TSH 0.541 {uIU/mL} (Normal) Range: 0.450-4.500 Comments: Effective December 24, 2009, TSH reference interval for11 - 19 years will be changing to: 0.450 - 4.500 uIU/mLReference interval for all other ages will NOT be affected. :55 URINALYSIS, W/ MICRO Comments: PATIENT WAS FASTINGPERFORMED BY: [facility] HospitalTower Vision[address] [id number] BY: Biocontrol MIT CSHub [facility] [id number] (06575) Bilirubin Negative (Normal) Microscopic Examination MICRON (Normal) Comments: Microscopic follows if indicated. Microscopic Examination See below: (Normal) Nitrite, Urine Negative (Normal) Occult Blood Negative (Normal) Urobilinogen,Semi-Qn 0.2 mg/dL (Normal) Range: 0.0-1.9 Glucose Negative (Normal) Ketones Negative (Normal) Protein Negative (Normal) WBC Esterase Negative (Normal) Appearance Clear (Normal) pH 6.0 (Normal) Range: 5.0-7.5 Specific [place] 1.020 (Normal) Range: 1.005-1.030 Urine-Color Yellow (Normal) :55 MICROALBUMIN: CREATININE Comments: PATIENT WAS FASTINGPERFORMED BY: [employer] [id number] BY: BiocontrolMountain View Regional Medical CenterSvfowx2601 [facility] [id number] RATIO (48435) AND (37877) Microalb/Creat Ratio 7.1 {mg/g_creat} (Normal) Range: 0.0-30.0 Microalbumin, Urine 8.6 ug/mL (Normal) Range: 0.0-17.0 Creatinine, Urine 120.9 mg/dL (Normal) Range: 15.0-278.0 :55 METABOLIC PANEL, Comments: PATIENT WAS FASTINGPERFORMED BY: [employer] [address] [id number] BY: [facility] Medical CenterReCept HoldingsTracey Ville 0206270 [facility] [id number] COMPREHENSIVE (09445) ALT (SGPT) 24 [iU]/L (Normal) Range: 0-40 [...] Glucose, Serum 105 mg/dL (Abnormal) Range: 65-99 77-Ntt-480757:55 LIPOPROTEIN, BLD, BY NMR Comments: PATIENT WAS FASTINGPERFORMED BY: Sarah [employer] Sos2667 Lavelle ZambranoFirstHealth Moore Regional Hospital [id number] BY: PRATIMA LabWalter P. [facility]uther [facility]iatric Hospital6370 [facility] [id number] Information: [id number] (03668) Large VLDL-P 2.9 nmol/L (Abnormal) Comments: Small [...] 1599High 1600 - 2000Very high > 2000. 58-Zfl-201869:55 CBC WITH MANUAL DIFF Comments: PATIENT WAS FASTINGPERFORMED BY: Saarh LipoScience Ruv8368 [facility] [id number] BY: PRATIMA LabCoRobert Wood Johnson University Hospital at HamiltonNwjzdq7671 [facility] [id number] (07438) Baso (Absolute) 0.0 {x10E3/uL} (Normal) Range: 0.0-0.2 [...] KIDNEY DISEASE, STAGE IV (SEVERE) : Reviewed Client Experience Consultant Letter Indication: CHRONIC KIDNEY DISEASE, STAGE IV (SEVERE) Diabetic autonomic neuropathy associated with type 2 diabetes mellitus : Follow up in 3 months Indication: Diabetic autonomic neuropathy associated with type 2 diabetes mellitus Chronic kidney disease, stage III (moderate) : Reviewed Client Experience Consultant Letter Indication: Chronic kidney disease, stage III [...] sequela Aspiration of food, sequela : Reviewed Client Experience Consultant Letter- sibila and bronch Indication: Aspiration of [...] Diagnostic Tests Indication: Sarcoidosis Sarcoidosis : Reviewed Client Experience Consultant Letter Indication: Sarcoidosis DM (diabetes mellitus), type 1, uncontrolled, with renal complications : Follow up in 3 months Indication: DM (diabetes mellitus), type 1, uncontrolled, with renal complications DM (diabetes mellitus), type 1, uncontrolled, with renal complications : Reviewed Lab Indication: DM (diabetes mellitus), type 1, uncontrolled, with renal complications Asthma : Continue Current Prescription(s) Indication: Asthma Asthma : Reviewed Client Experience Consultant Letter Indication: Asthma CHRONIC KIDNEY DISEASE, STAGE IV (SEVERE) : Reviewed Client Experience Consultant Letter Indication: CHRONIC KIDNEY DISEASE, STAGE IV [...] GERD (gastroesophageal reflux disease) Asthma : Reviewed Client Experience Consultant Letter Indication: Asthma Asthma : Continue Current Prescription(s) Indication: Asthma DM (diabetes mellitus), type 1, uncontrolled, with renal complications : Follow up in 3 months- do ekg Indication: DM (diabetes mellitus), type 1, uncontrolled, with renal complications Chronic kidney disease, stage III (moderate) : Reviewed Client Experience Consultant Letter Indication: Chronic kidney disease, stage III [...] typeII,controlled, renal comp Atrial fibrillation : Reviewed Client Experience Consultant Letter Indication: Atrial fibrillation Hypercholesteremia : Reviewed [...] Indication: Impacted fracture Impacted fracture : Reviewed Client Experience Consultant Letter Indication: Impacted fracture Hypertension with renal [...] kidney disease, stage III (moderate) : Reviewed Client Experience Consultant Letter- Dr Ribeiro Indication: Chronic kidney disease, [...] kidney disease, stage III (moderate) : Reviewed Client Experience Consultant Letter Indication: Chronic kidney disease, stage III [...] kidney disease, stage III (moderate) : Reviewed Client Experience Consultant Letter Indication: Chronic kidney disease, stage III [...] kidney disease, stage III (moderate) : Reviewed Client Experience Consultant Letter Indication: Chronic kidney disease, stage III [...] kidney disease, stage III (moderate) : Reviewed Client Experience Consultant Letter-- dr ribeiro Indication: Chronic kidney disease, [...] kidney disease, stage III (moderate) : Reviewed Client Experience Consultant Letter: Dr ribeiro Indication: Chronic kidney disease, stage III (moderate) Diabetes mellitus type II, controlled : *Diabetes Education Indication: Diabetes mellitus type II, controlled Hypercholesteremia : Cholesterol mgmt Indication: Hypercholesteremia Hypertension with renal disease : Diet, Exercise, and Wt loss Indication: Hypertension with renal disease Hypertension with renal disease : HTN/CAD Red Flags Indication: Hypertension with renal disease Aspiration pneumonia : Reviewed Client Experience Consultant Letter Indication: Aspiration pneumonia Aspiration pneumonia : [...] kidney disease, stage III (moderate) : Reviewed Client Experience Consultant Letter Indication: Chronic kidney disease, stage III [...] kidney disease, stage III (moderate) : Reviewed Client Experience Consultant Letter- w/u in progress Indication: Chronic kidney [...] reflux disease) Planned Observations METABOLIC PANEL, COMPREHENSIVE (24872)Indication: Medication monitoring encounter On: 4-Dsa-317360:10 Request Parathyroid Hormone-related Peptide (PTH-rP) (20867)Indication: Hypercalcemia On: :40 Request Comments: send copy dr ribeiro CALCIUM SERUM (82966)Indication: Hypercalcemia On: :40 Request Comments: send copy to dr ribeiro ELECTROLYTES, 24 HOUR URINE (73511)Indication: Hypercalcemia On: 1-Vho-103850:49 Request POTASSIUM SERUM (15879)Indication: Hypercalcemia On: 9-Wzn-501702:48 Request Parathyroid Hormone-related Peptide (PTH-rP) (30009)Indication: Hypercalcemia On: :48 Request CALCIUM SERUM (28068)Indication: Hypercalcemia On: 6-Rcx-426440:48 Request CALCIUM URINE 34746 (53193)Indication: Hypercalcemia On: :06 Request Comments: 24 hr urine ELECTROLYTES, 24 HOUR URINE (58464)Indication: Hypercalcemia On: :06 Request FECAL OCCULT- Tubes sent home (94872)Indication: Encounter for screening for malignant neoplasm of colon (Renamed from Special screening for malignant neoplasms, colon) On: 50-Zjf-510690:47 Request Lipid Panel (48812)Indication: Hypercholesteremia On: 8-Hpn-760180:02 Request CALCIFIDIOL (64187) VIT D 25Indication: FATIGUE On: 8-Oeq-928576:38 Request Folate (43214)Indication: FATIGUE On: 4-Yyd-071044:38 Request VITAMIN B-12 (CYANOCOBALAMIN) (79934)Indication: FATIGUE On: 2-Pyr-354742:38 Request TSH (58712)Indication: FATIGUE On: :38 Request SED RATE ERYTHROCYTE (24918)Indication: FATIGUE On: :38 Request RHEUMATOID FACTOR-QUANT (28046)Indication: FATIGUE On: :38 Request METABOLIC PANEL, COMPREHENSIVE (87212)Indication: FATIGUE On: :38 Request C-REACTIVE PROTEIN (98185)Indication: FATIGUE On: :38 Request CBC (AUTO) (92440)Indication: FATIGUE On: :38 Request HEIDI (ANTINUCLEAR ANTIBODY) (78679)Indication: FATIGUE On: :38 Request CULTURE, SPUTUM (46403)Indication: Cough On: 5-Uhg-820745:08 Request Metabolic Panel, Comprehensive (47918)Indication: Diabetes mellitus type 2, uncontrolled, without complications On: 74-Rso-042433:21 Request FECAL OCCULT HGB ASSAY- tubes sent home (40783)Indication: Encounter for Medicare annual wellness exam On: 83-Ijb-99445:58 Request CALCIFIDIOL (47350) VIT D 25Indication: Vitamin D deficiency On: 86-Sof-73433:48 Request MAGNESIUM (60093)Indication: Hypomagnesemia On: 21-Adv-08329:47 Request URINE ALFONZO CULTURE ([place]IT[place] COL COUNT) (92420)Indication: Abdominal pain On: 74-Xsk-398341:37 Request Urinalysis, Office (57772)Indication: Abdominal pain On: 33-Hjm-465594:37 Request FECAL OCCULT HGB ASSAY- tubes sent home (38854)Indication: Encounter for Medicare annual wellness exam On: 41-Uxm-78659:56 Request Metabolic Panel, Basic (44072)Indication: Chronic kidney disease, stage III (moderate) On: 82-Fmc-379506:11 Request POTASSIUM SERUM (80574)Indication: Hypokalemia On: 82-Kjl-88131:13 Request TSH (36391)Indication: Diabetes mellitus type II, controlled On: 0-Xix-025603:01 Request URINALYSIS, W/ MICRO (50816)Indication: Diabetes mellitus type II, controlled On: 7-Xak-525645:01 Request MICROALBUMIN: CREATININE RATIO (62597) AND (06285)Indication: Diabetes mellitus type II, controlled On: : Request METABOLIC PANEL, COMPREHENSIVE (86285)Indication: Diabetes mellitus type II, controlled On: : Request LIPID PANEL (61226)Indication: Diabetes mellitus type II, controlled On: Request CBC WITH MANUAL DIFF (63993)Indication: Diabetes mellitus type II, controlled On: Request LIPOPROTEIN, BLD, BY NMR (58458)Indication: Hypercholesteremia On: : Request LIPID PANEL (11449)Indication: Hypercholesteremia On: : Request Comments: do in 3 months HEPATIC FUNCTION PANEL (80829)Indication: Hypercholesteremia On: Request LIPID PANEL (37990)Indication: Hypertension, benign On: :33 Request Planned Encounters Medical; 3 Month FU - On: 08-Nov-2018 8:45 [facility] Veronica Oquendo DO, DO, Kathleen Planned Procedures Solu -Medrol Injection, 125 mg On: 18-Aug-2018 Intent (J2930)By: Kassandra Fortune CNP Flu Vaccine (Quadrivalent) 78266Ms: On: 09-Aug-2018 Intent Veronica Oquendo DO, DO, Comments: Lot #[id number]-L dltd, IMDose prefilled syringegiven by:ANTOINE Munoz reviewed and ABN signed Veronica ELECTROCARDIOGRAM, COMPLETE (ECG) On: 09-Aug-2018 Intent (03037)By: Veronica Oquendo DO Comments: nsr - RBBB - no t acute Veronica Oquendo DO AXLB-VF-QDTQ BEHAVIORAL COUNSELING On: 09-Apr-2018 Intent FOR OBESITY, 15 MINUTES (G0447)By: Veronica Oquendo DO, DO, Kathleen SCREENING DIGITAL TOMOSYNTHESIS OF On: 09-Apr-2018 Intent BREAST (92869)By: Veronica Oquendo DO, DO, Kathleen Solu- Medrol Injection, 125mg On: 01-Jan-2018 Intent (J2930)By: Veronica Oquendo DO Comments: 125mg - 1 [id number]/2020R hip, IMJoaquina Stanton, [employer]OR Veronica Oquendo DO CHEST XRAY, PA & LATERAL (31667)By: On: 23-Dec-2017 Intent Veronica Oquendo DO, DO, Kathleen CHEST XRAY, PA & LATERAL (54312)By: On: 22-Dec-2017 Intent Kelsea Lund Aerosol Treatment (86816)By: On: 22-Dec-2017 Intent Kelsea Lund Comments: Still has wheezing in right lobe after aerosol treatment. 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 EKG (91242)By: Veronica Oquendo DO On: 14-Oct-2017 Intent Veronica Oquendo DO Comments: nsr no acute chg- RBBB Aerosol Treatment (78172)By: Azra On: 14-Aug-2017 Veronica Pabon DO, DO, Kathleen Comments: no noise and more a/e Solu- Medrol Injection, 125mg On: 14-Aug-2017 Intent (J2930)By: Veronica Oquendo DO Comments: lot [id number] mgright gmIMas, [employer] ADVISOR Veronica Oquendo DO Solu- Medrol Injection, 125mg On: 05-Aug-2017 Intent (J2930)By: Veronica Oquendo DO Comments: Lot:[id number]:11/17Dose:125mgRoute:imSite:r hipGiven By:MICHAEL signed Veronica Oquendo DO Flu Vaccine (Quadrivalent) 84158Jq: On: 28-Jul-2017 Intent Veronica Oquendo DO, DO, Kathleen ELECTROCARDIOGRAM, COMPLETE (ECG) On: 28-Jul-2017 Intent (62175)By: Veronica Oquendo DO, DO, Kathleen IV Needle placement (84747)By: On: 14-Jul-2017 Intent Kassandra Fortune CNP ORTHOSTATIC BLOOD PRESSURE On: 14-Jul-2017 Intent ASSESSMENT (21004)By: Kassandra Fortune CNP INFUSION, NORMAL SALINE SOLUTION , On: 14-Jul-2017 Intent 1000 CC (Special Coverage Instructions Apply. See MCM: 2049) (J7030)By: Kassandra Fortune CNP Solu -Medrol Injection, 125 mg On: 22-Jun-2017 Intent (J2930)By: Kelsea Lund Solu- Medrol Injection, 125mg On: 17-Apr-2017 Intent (J2930)By: Veronica Oquendo DO Comments: Lot:[id number]:04/2019Dose:125mgRoute:imSite:l armGiven By:NOE signed Veronica Oquendo DO DEXA SCAN AXIAL SKELETON (45482)By: On: 06-Apr-2017 Intent Veronica Oquendo DO, DO, Kathleen SCREENING DIGITAL TOMOSYNTHESIS OF On: 06-Apr-2017 Intent BREAST (91674)By: Veronica Oquendo DO, DO, Kathleen Flu Vaccine (Quadrivalent) 38765Nr: On: 20-Aug-2016 Intent Veronica Oquendo DO, DO, Comments: FLUlot: [id number]:05/29/17site:Lt deltoidroute:IMdose:.5mlVALENTINA MOBLEY Solu- Medrol Injection, 125mg On: 20-Aug-2016 Intent (J2930)By: Veronica Oquendo DO Comments: solumedrollot:[id number]:03/18site:lt glutroute:IMdose:125mgDVALENTINA Calderón DO, Kathleen Solu -Medrol Injection, 125 mg On: 13-Aug-2016 Intent (J2930)By: Kassandra Fortune CNP Comments: Lot:[id number]:02/2019Dose:125mgRoute:imSite:l hip Given By:NOE signed Aerosol Treatment (20646)By: Irma On: 13-Aug-2016 Intent Clarisse SCHWARZ Radiology - Shoulder - LeftBy: Devika On: 04-Jul-2016 Intent Kassandra LUU Radiology - Knee - LeftBy: Devika On: 04-Jul-2016 Intent Kassandra LUU Comments: send result to Dr. Delgadillo Toradol Injection, 30 mg (J1885)By: On: 04-Jul-2016 Intent Kassandra Fortune CNP Aerosol Treatment (81200)By: Azra On: 12-May-2016 Veronica Pabon DO, DO, Kathleen Comments: less cough and more a./e- no wheeze Solu- Medrol Injection, 125mg On: 12-May-2016 Intent (J2930)By: Veronica Oquendo DO Comments: lot: [id number]: 12/18site/route: RGM/IMamt: 2mLVIS signed when applicableChelsea, Veronica Gillis DO CT - Chest (IV Contrast Needed)By: On: 09-May-2016 Intent Veronica Oquendo DO, DO, Kathleen Radiology - Chest- PA and LatBy: On: 08-May-2016 Intent Veronica Oquendo DO, DO, Veronica PNEUM VAC ADLT/IMUMNOSPR, SBC/INTRM On: 21-Apr-2016 Intent (21517)By: Veronica Oquendo DO Comments: pneumovaxlot:[id number]:09/06/17site:lt deltroute:IMD.VALENTINA Dunlap DO, Kathleen EFEP-XB-CPFO BEHAVIORAL COUNSELING On: 21-Apr-2016 Intent FOR OBESITY, 15 MINUTES (G0447)By: Veronica Oquendo DO, DO, Kathleen MAMMOGRAM, SCREENING, BOTH BREAST On: 21-Apr-2016 Intent (96475)By: Veronica Oquendo DO, DO, Kathleen Radiology - Knee - RightBy: Azra On: 14-Apr-2016 Intent Veronica JEAN-BAPTISTE DO, Kathleen Radiology - Knee - LeftBy: Azra On: 14-Apr-2016 Veronica Pabon DO, DO, Kathleen ADMINISTRATION OF INFLUENZA VIRUS On: 09-Aug-2015 Intent VACCINE (G0008)By: Veronica Oquendo DO, DO, Kathleen Flu Vaccine (Quadrivalent) 56734Gr: On: 09-Aug-2015 Intent Veronica Oquendo DO, DO, Comments: Lot:[id number]:02/27/16Dose:0.5mLRoute:IMSite:L DltdGiven By:NOE signed Veronica Solu -Medrol Injection, 125 mg On: 03-Aug-2015 Intent (J2930)By: Veronica Oquendo DO Comments: Lot:[id number]:12/2017Dose:125mgRoute:imSite:l armGiven By:NOE signed Veronica Oquendo DO Aerosol Treatment (38934)By: Azra On: 03-Aug-2015 Veronica Pabon DO, DO, Kathleen Comments: more a/e after aerosol EKG (21918)By: Veronica Oquendo DO On: 19-Jul-2015 Veronica Wren DO Comments: ming botello -- no new twave chg when compared to old ones Aerosol Treatment (24843)By: Azra On: 30-Apr-2015 Intent , Veronica Jurado DO Radiology - Chest- PA and LatBy: On: 27-Apr-2015 Intent Veronica Oquendo DO, DO, Kathleen DEXA SCAN AXIAL SKELETON (03777)By: On: 17-Apr-2015 Intent Veronica Oquendo DO, DO, Kathleen INTENSIVE BEHAVIORAL THERAPY TO On: 17-Apr-2015 Intent REDUCE CARDIOVASCULAR DISEASE RISK, INDIVIDUAL, QKSH-PL-UBUD, ANNUAL, 15 MINUTES (G0446)By: Veronica Oquendo DO, DO, Kathleen WITH-YY-YJMF BEHAVIORAL COUNSELING On: 17-Apr-2015 Intent FOR OBESITY, 15 MINUTES (G0447)By: Veronica Oquendo DO, DO, Kathleen MAMMOGRAM, SCREENING, BOTH BREAST On: 17-Apr-2015 Intent (43022)By: Veronica Oquendo DO, DO, Kathleen EKG (18366)By: Veronica Oquendo DO On: 16-Aug-2014 Intent Veronica Oquendo DO Comments: nsr nonspecif st and t wave chg old not new Radiology - Chest- PA and LatBy: On: 15-May-2014 Intent Azra DOVeronica Azra DO, Veronica Toradol Injection, 30 mg (J1885)By: On: 12-May-2014 Intent Kassandra Fortune CNP Comments: Lot:[id number]:10/30/15Dose:30mgRoute:imSite:r hipGiven By:NOE signed Eprescribed prescriptions (G8553)By: On: 01-May-2014 Intent Veronica Oquendo DO DO, Veronica MAMMOGRAM, SCREENING, BOTH BREASTS On: 18-Apr-2014 Intent (41117)By: Veronica Oquendo DOon DOVeronica THLR-JC-FFEE BEHAVIORAL COUNSELING On: 18-Apr-2014 Intent FOR OBESITY, 15 MINUTES (G0447)By: Veronica Oquendo DO Azra DO Veronica Eprescribed prescriptions (G8553)By: On: 11-Apr-2014 Intent Veronica Oquendo DO Azra DO, Veronica Pulse Oximetry (45101)By: Azra JEAN-BAPTISTE, On: 11-Apr-2014 Intent Veronica Oquendo DO, Veronica Aerosol Treatment (13768)By: Devika On: 27-Sep-2013 Intent BELL Dasia QZXH-SW-OSMG BEHAVIORAL COUNSELING On: 12-Sep-2013 Intent FOR OBESITY, 15 MINUTES (G0447)By: Veronica Oquendo DO Azra DO, Veronica MAMMOGRAM, SCREENING, BOTH BREASTS On: 12-Sep-2013 Intent (59591)By: Kelsea Richards LPN DRAIN/INJECT MAJOR JOINT OR BURSA On: 24-Aug-2013 Intent ()By: Kelsea Richards LPN Comments: [id number] exp 08/13 DRAIN/INJECT MAJOR JOINT OR BURSA On: 24-Aug-2013 Intent ()By: Kelsea Richards LPN Comments: lt knee lot [id number] exp 08/13 DRAIN/INJECT MAJOR JOINT OR BURSA On: 18-Aug-2013 Intent ()By: Kelsea iRchards LPN Comments: lt knee lot [id number] exp 07/13 DRAIN/INJECT MAJOR JOINT OR BURSA On: 18-Aug-2013 Intent ()By: Kelsea Richards LPN Comments: rt knee lot [id number] exp 07-13 FLU VAC, SPLIT, >3 YEARS, INTRAMUSC On: 10-Aug-2013 Intent (31012)By: Veronica Oquendo DO Comments: lot [id number] 2013site/route L sabas, IMamt 0.5mlVIS and ABN signed when applicableSTARR Lui DO, Kathleen ADMINISTRATION OF INFLUENZA VIRUS On: 10-Aug-2013 Intent VACCINE (G0008)By: Sania Ritchie DRAIN/INJECT MAJOR JOINT OR BURSA On: 10-Aug-2013 Intent ()By: Kelsea Richards LPN Comments: euflexxa injection lt knee lot [id number] exp 07/13 DRAIN/INJECT MAJOR JOINT OR BURSA On: 10-Aug-2013 Intent ()By: Kelsea Richards LPN Comments: euflexxa injection rt knee lot [id number] exp 07/13 Solu- Medrol Injection, 125mg On: 03-Aug-2013 Intent ([id number])By: Veronica Oquendo DO Comments: injected over Left sciatic area - most tender spot marked - no bleed pt tolerated well -- 08/03/13 lot # Veronica Oquendo DO Eprescribed prescriptions ([id number])By: On: 03-Aug-2013 Intent Sania Ritchie Kenalog Injection, 10 mgm On: 21-Jul-2013 Intent ([id number])By: Veronica Oquendo DO Comments: used 40 mglot: [id number]: 02/11site/route: RGM/IMamt: 40VIS signed when applicableSTARR Lui DO, Kathleen Nuclear Stress Test/Stress On: 21-Jul-2013 Intent SPECT/AdenosineBy: Azra JEAN-BAPTISTE, Comments: needs adenosine - bc 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 Veronica Jurado DO Echo CompleteBy: Veronica Oquendo DO On: 21-Jul-2013 Intent Vreonica Oquendo DO Spirometry ([id number])By: Azra JEAN-BAPTISTE, On: 21-Jul-2013 Intent Veronica Jurado DO Comments: mild obstruction EKG ([id number])By: Veronica Oquendo DO On: 21-Jul-2013 Intent Veronica Oquendo DO Comments: nsr no acute chg - t wave inversion ant septal leads - st depression in lateral precordial leads CTXC-IE-IBAO BEHAVIORAL COUNSELING On: 21-Jul-2013 Intent FOR OBESITY, [...] Intent (J2930)By: Kassandra Fortune CNP Comments: Lot: [id number]: 12/2015Amt: 125mgRoute: IMSite: RUOQ glutealGiven by: CHONG Canas EKG ([id number])By: Veronica Oquendo DO On: 11-Apr-2013 Intent Veronica Oquendo DO Comments: nsr no acute chg the same nonspecific st flattening in v1v2 are presnet on old ekg's Spirometry ([id number])By: Azra JEAN-BAPTISTE, On: 11-Apr-2013 Intent Veronica Jurado DO Comments: such poor technique cnt report a FEV Eprescribed prescriptions ([id number])By: On: 16-Sep-2012 Intent Kelsea Richards LPN FLU VAC, SPLIT, >3 YEARS, INTRAMUSC On: 02-Sep-2012 Intent ([id number])By: Veronica Oquendo DO Comments: Lot #[id number]-left deltoidgiven by: CHONG Patrick DO, Kathleen ADMINISTRATION OF INFLUENZA VIRUS On: 02-Sep-2012 Intent VACCINE ([id number])By: Veronica Oquendo DO, DO, Kathleen BUOB-XW-ZFOB BEHAVIORAL COUNSELING On: 02-Sep-2012 Intent FOR OBESITY, 15 MINUTES (G0447)By: Veronica Oquendo DO, DO, Kathleen SPECIMEN HNDLNG/TRNSPRT, OFFC > LAB On: 04-Aug-2012 Intent ([id number])By: Suki Gutiérrez LPN MAMMOGRAM, SCREENING, BOTH BREASTS On: 28-Jul-2012 Intent ([id number])By: Veronica Oquendo DO, DO, Kathleen EKG ([id number])By: Veronica Oquendo DO On: 17-Jun-2012 Intent Veronica Oquendo DO Comments: nsr no acute chg Overnight Pulse Ox([id number])By: Mast On: 11-May-2012 Intent Suzy RUIZ Spirometry ([id number])By: Azra JEAN-BAPTISTE, On: 17-Mar-2012 Intent Veronica Jurado DO Comments: poor technique- stable -- FLU VAC, SPLIT, >3 YEARS, INTRAMUSC On: 01-Sep-2011 Intent ([id number])By: Kelsea Richards LPN Comments: given at health clinic not here Eprescribed prescriptions ([id number])By: On: 29-Jul-2011 Intent Kelsea Richards LPN Ultrasound - RenalBy: Devika LUU, On: 15-Jul-2011 Intent Dasia PNEUM VAC ADLT/IMUMNOSPR, SBC/INTRM On: 09-May-2011 Intent ([id number])By: Veronica Oquendo DO, DO, Kathleen IMMUNIZ ADMNIN, 1 VAC, SNGL/COMBO On: 09-May-2011 Intent ([id number])By: Veronica Oquendo DO, DO, Kathleen DXA, BONE DENSITY, AXIAL SKELETON On: 09-May-2011 Intent ([id number])By: Kelsea Richards LPN MAMMOGRAM, SCREENING, BOTH BREASTS On: 09-May-2011 Intent ([id number])By: Kelsea Richadrs LPN Clinical Breast Examination On: 09-May-2011 Intent (G0101)By: Kelsea Richards LPN TDAP VACCINE >7 IM ([id number])By: Azra On: 16-Apr-2011 Veronica Pabon DO, DO, Kathleen Comments: Lot #[id number]-right deltoidgiven by: Alisa Vee LPN PULMONARY STRESS TEST/SIMPLE On: 04-Mar-2011 Intent ([id number])By: Veronica Oquendo DO Comments: pt unable to complete fulol test due to shortess of breath. Pt completed 3 minutes of assessment. hh Veronica Oquendo DO EKG ([id number])By: Veronica Oquendo DO On: 03-Mar-2011 Intent Veronica Oquendo DO Comments: nsr no acute changes Pulse Oximetry ([id number])By: Devika LUU, On: 29-Jan-2011 Intent Kassandra Vargas Solu- Medrol Injection, 125mg On: 29-Jan-2011 Intent ([id number])By: Kassandra Fortune CNP Pulse Oximetry ([id number])By: Bernardo RN, On: 29-Jan-2011 Intent Suzy IMMUNIZ ADMNIN, 1 VAC, SNGL/COMBO On: 04-Sep-2010 Intent ([id number])By: Lisa Blood FLU VAC, SPLIT, >3 YEARS, INTRAMUSC On: 04-Sep-2010 Intent ([id number])By: Lisa Blood Comments: Lot:[id number]:02/2011Dose:0.5MLRoute:IMSite:left deltoidGiven by: VALENTINA Saleem CT - Chest (IV Contrast Needed)By: On: 20-Jun-2010 Intent Veronica Oquendo DO, DO, Kathleen Echo CompleteBy: Veronica Oquendo DO On: 20-Jun-2010 Intent Veronica Oquendo DO Radiology - ChestBy: Kassandra Fortune CNP On: 27-May-2010 Intent E Aerosol Treatment ([id number])By: Devika On: 27-May-2010 Kassandra Pabon CNP Pulse Oximetry ([id number])By: Devika LUU On: 27-May-2010 Intent Dasia Ultrasound - LiverBy: Azra JEAN-BAPTISTE, On: 07-Mar-2010 Intent Veronica Jurado DO Spirometry ([id number])By: Azra JEAN-BAPTISTE, On: 07-Mar-2010 Intent Veronica Jurado DO Comments: mild obstrucition EKG ([id number])By: Veronica Oquendo DO On: 14-Dec-2009 Intent Veronica Oquendo DO Comments: nsr poor R wave progression-- will request old ekg to compare Spirometry (31507)By: Azra JEAN-BAPTISTE, On: 14-Dec-2009 Intent Veronica Jurado DO Comments: mild obstructive disease but some technique off Planned Medications INFUSION, NORMAL SALINE SOLUTION , 1000 CC Ordered: 14-Jul-2017 Pending Ciesa MILLWRIGHT APPRENTICE, Dasia INJECTION, KETOROLAC TROMETHAMINE, PER 15 MG Ordered: 12-May-2014 Pending Ciesa MILLWRIGHT APPRENTICE, Dasia INJECTION, KETOROLAC TROMETHAMINE, PER 15 MG Ordered: 04-Jul-2016 Pending Ciesa MILLWRIGHT APPRENTICE, Dasia INJECTION, METHYLPREDNISOLONE SODIUM SUCCINATE, UP TO 125 MG Ordered: 29-Jan-2011 Pending Ciesa MILLWRIGHT APPRENTICE, Dasia INJECTION, METHYLPREDNISOLONE SODIUM SUCCINATE, UP TO [...] TO 125 MG Ordered: 13-Aug-2016 Pending Ciesa MILLWRIGHT APPRENTICE, Dasia INJECTION, METHYLPREDNISOLONE SODIUM SUCCINATE, UP TO [...] TO 125 MG Ordered: 03-Jun-2013 Pending Ciesa MILLWRIGHT APPRENTICE, Dasia INJECTION, METHYLPREDNISOLONE SODIUM SUCCINATE, UP TO 125 MG Ordered: 01-Jan-2018 Pending Azra DO, Veronica Azra DO, Veronica INJECTION, METHYLPREDNISOLONE SODIUM SUCCINATE, UP TO 125 MG Ordered: 18-Aug-2018 Pending Ciesa MILLWRIGHT APPRENTICE, Dasia INJECTION, TRIAMCINOLONE ACETONIDE, NOT OTHERWISE SPECIFIED, [...] foot : DISCONTINUED - RENAL FUNCTION PANEL (81059) Indication: Gout of right foot Gout of right foot : DISCONTINUED - URIC ACID BLOOD (10546) Indication: Gout of right foot Hypertension with renal disease : DISCONTINUED - MAGNESIUM (48223) Indication: Hypertension with renal disease Hypertension with renal disease : DISCONTINUED - POTASSIUM SERUM (07283) Indication: Hypertension with renal disease Diarrhea : [...] The patient does have durable power of estate planning attorney and living will. The patient has noticed nothing from the geriatic depression scale. Other providers contributing to the patient's care are installment account checker, vat house supervisor, hvac service technician and other:.Encounter Diagnosis: BMI 38.0-38.9,adult, Nonsmoker, [...] The patient does have durable power of estate planning attorney and livin g will. The patient has noticed lack of energy. Other providers contributing to the patient's care are gastrologist, hvac service technician and other: (pain management, podiatry).Encounter Diagnosis: [...] patient does not have durable power of estate planning attorney or living will. The patient has noticed nothing from the geriatic depression s angelica. Other providers contributing to the patient's care are hvac service technician and other:.Encounter Diagnosis: Annual Medicare Phyiscal [...] patient does not have durable power of estate planning attorney or living will. The patient has [...] care from a hospital (inhaled hamburger and urdu rice and she was in hosp from [...] providers contributing to the patient's care are vat house supervisor (margaret saravia), hvac service technician (dr. hayes) and other: (dr. zincdr. [...] providers contributing to the patient's care are vat house supervisor (says has an appt with Dr Hammer this month at [facility] gastrologist (Michele), hvac service technician (Dr Hayes) and urologist (Dr Mayes).Encounter [...]
--- OUTSIDE RECORDS SUMMARY | 2018-12-08 05:46 | XMS RPT_ITS | Continuity of Care Document ---
:1950 Author Organization [facility] Address [facility] [address] [place] [address] Phone Care Team Providers Name Role Phone Veronica Oquendo DO Unavailable Octavio Delgado Unavailable Nghia Bautista MD Unavailable Lobito Kauffman DO Unavailable Derrell Palumbo Unavailable Unavailable Messenger, DIGITAL PUBLISHING SPECIALIST Kelsea Unavailable Unavailable Stephanie Rodriguez Unavailable Unavailable Gravius, Daksha Unavailable Unavailable Slarb DIGITAL PUBLISHING SPECIALIST, Clarisse Unavailable Unavailable Joaquina Stanton Unavailable Unavailable [...] occurred s/p surgery - saw cardio in [place] had stress test and it was normal - - pt treated with meds and converted so no cont meds Status: 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, 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 BMI 38.0-38.9,adult (Z68.38, V85.38) Status: Active BMI 38.0-38.9,adult (Z68.38, V85.38) Status: Active BMI 38.0-38.9,adult (Z68.38, V85.38) Status: Active BMI 39.0-39.9,adult (Z68.39, V85.39) Status: Active BMI 39.0-39.9,adult (Z68.39, V85.39) Status: [...] after 2weeksdriving to see Dr Ribeiro in [place] Status: Active CHRONIC OBSTRUCTIVE ASTHMA WITH (ACUTE) [...] NOS (365.9) Status: Active Gout (M10.9, 274.9) Status: Active Gout (M10.9, 274.9) Comments: one rx too $$$ other rx didnt tolerate with extreme nausea and stomach pain-- allopurinol also got exteme nausea but only tried to appeae ins co -- i didnt want to use bc of later stage CKD Status: Active Gout, 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, 274.00) Comments: [...] Active Sinusitis, bacterial (J32.9, 473.9) Status: Active Sinusitis, bacterial (J32.9, 473.9) Status: [...] oa support and inflammation support Status: Active UTI (urinary tract infection) (N39.0, 599.0) Status: Active UTI (urinary tract infection), bacterial (N39.0, 599.0) Status: Active VACCINE AGAINST INFLUENZA (Z23, V04.81) [...] DO, DO, Kathleen Start : 01-Jun-2017 Active Amoxicillin-Pot Clavulanate 875-125 MG Oral Tablet 1 (one) Tablet bid for 0 days Quantity: 20 {Tablet} Refills: 0 Ordered:12-Nov-2018 Cade Oquendo DO, DO, Kathleen Start : 12-Nov-2018 Active Claritin 10 MG Oral Tablet 1 Tablet qd for 0 days Quantity: 90 {Tablet} Refills: 3 Ordered:25-Aug-2018 Cade Oquendo DO, DO, Kathleen Start : 25-Aug-2018 Active Cozaar 50 MG Oral Tablet 1 Tablet qd for 0 days Quantity: 90 {Tablet} Refills: 3 Ordered:25-Aug-2018 Cade Oquendo DO, DO, Kathleen Start : 25-Aug-2018 Active Diflucan 150 MG Oral Tablet 1 (one) Tablet qod 2 days for 0 days Quantity: 2 {Tablet} Refills: 0 Ordered:12-Nov-2018 Cade Oquendo DO, DO, Kathleen Start : 12-Nov-2018 Active Fluticasone Propionate 50 MCG/ACT Nasal Suspension [...] DO, DO, Kathleen Start : 25-Aug-2018 Active Davenport 5-325 MG Oral Tablet 1 (one) Tablet [...] DO, Kathleen Start : 25-Aug-2018 Active [place] 3/16 31G X 5 MM Miscellaneous 1 [...] days Quantity: 90 {Tablet} Refills: 3 Ordered:15-Sep-2018 Cade Oquendo DO, DO, Kathleen Start : 15-Sep-2018 Active Comments:pt cant take [...] 7 {Capsule} Refills: 0 Ordered:14-Jul-2017 Devika LUU Dasia Start [...] Inactive Comments:pt test 2 x perdaydx: 250.00 Doxycycline Hyclate 100 MG Oral Tablet Delayed [...] days Quantity: 3 {Bottle} Refills: 0 Ordered:03-Sep-2016 Azra JEAN-BAPTISTE Veronica Mohamud DO Start : 03-Sep-2016 End : 02-Dec-2016 Inactive [...] End : 10-Apr-2016 Inactive VITAMIN D (ERGOCALCIFEROL), [id number] (Oral Capsule) 1 (one) Capsule daily for 30 days Quantity: 30 {Capsule} Refills: 0 Ordered:08-Oct-2015 Kassandra Fortune CNP Start : 14-Aug-2015 End : 13-Sep-2015 Inactive [...] Discontinued Comments:Dispense mini needles CALCIUM + D, [phone]-MG-IU (PO Cap) 2 qd for 0 days [...] End : 07-Aug-2010 Discontinued Comments:ins no coverage Macrobid 100 MG Oral Capsule 1 (one) Capsule bid for 10 days Quantity: 20 {Capsule} Refills: 0 Ordered:12-Nov-2018 Cade Oquendo DO, DO, Kathleen Start : 12-Nov-2018 End : 12-Nov-2018 Discontinued Comments:nausea and abd pain Mag-200 200 MG Oral Tablet 1 (one) [...] 3 Views Result: Comments: See Note; NOTES: [facility] Imaging Services [address] [place] [address] Lumbar Spine 2 or 3 Views MR#: [id number] Acct: [id number] Name: SUGEY LING Rep #: [id number] : 1950 F 67 From: Dwight Choudhury DO PCP: Veronica Oquendo DO Status: REG CLI Study: Lumbar Spine 2 or 3 Views Date of Exam: 10/26/18 Exam# [id number] Ordering Dr: Chetan Medina MD STUDY: X-RA [...] CC: Chetan Medina MD; Veronica Oquendo DO Fabric Coating Supervisor: Signed 22-May-2018 Orthopedic Visit Report Result: Comments: See Note; NOTES: [facility] Orthopaedics AND Sports Medicine [address] [place] [address] OFFICE VISIT Date of Service: 05/11/18 MR#: [id number] Acct: [id number] Name: SUGEY LING Rep #: [id number] : 1950 Provider: Tia Chirinos MD Age/Sex: 67/F Location: [facility] Status: Signed Intake Intake Visit Reasons: LOW [...] [History Confirmed 01/07/18] Fluticasone 0.05% [Flonase Nasal [place]] 1 spray NASAL DAILY 06/21/17 [History Confirmed 01/07/18] Fluticasone/Salmeterol [Advair 500/50 Mcg Diskus] 1 puff INHALATION BID 06/21/17 [History Confirmed 01/08/18] Furosemide [Lasix] 40 mg PO DAILY PRN PRN 06/21/17 [History Confirmed 01/07/18] Insulin Detemir [Levemir (BKC)] 24 units SC QHS 06/21/17 [History Con firmed 01/08/18] [place]-3S/Dha/Epa/Fish Oil [Fish Oil 1,200 mg Softgel] 1 ea PO DAILY 06/21/17 [History Confirmed 01/07/18] Pantoprazole Sodium [Protonix] 40 mg PO BID 06/21/17 [History Confirmed 8] Tiotropium [place] [Spiriva Respimat] 2 puff IH DAILY 06/21/17 [...] nothin g. 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 operations planner who would not clear her for a [...] 4 Diagnoses Lumbar radicu lopathy M54.16 05/22/18 1597 <Electronically signed by Tia Chirinos MD> Date [facility] MD [facility] Signature: Date (if applicable) CC: Chetan Medina MD 20-May-2018 SCREENING MAMM (CAD), BILAT Result: Comments: See Note; NOTES: [facility] Imaging Services [address] [place] [address] SCREENING MAMM (CAD), BILAT MR#: [id number] Acct: [id number] Name: SUGEY LING Rep #: [id number] : 1950 F 67 From: Anam Larios MD PCP: Veronica Oquendo DO Status: REG CLI Study: SCREENING MAMM (CAD), BILAT Date of Exam: 05/20/18 Exam# [id number] Ordering Dr: Veronica Oquendo MAMMOGRAPHY - BILATERAL [...] delay biopsy of a clinically suspicious abnormality. [id number] Electronically Signed: Anam Larios MD at 7:57 EDT Tel [phone], Service jolly pport , CC: Veronica Oquendo DO Fabric Coating Supervisor: Signed 29-Jan-2018 Modified Barium Swallow Study Result: Comments: See Note; NOTES: [facility] Speech Pathology [address] [place] [address] Modified Barium Swallow Study MR#: [id number] Acct: [id number] Name: SUGEY LING Rep #: [id number] : 1950 67 From: Eliezer Duke M.A., CFY-CREATIVE SERVICES WRITER PRIMARY / SECONDARY DIAGNOSIS: dysphagia (R13.10) REFERRING [...] removal after aspirating rice during intake of Botswanan food with resulting pneumoniti s of both food and emesis with bronchospasm, documentation reveals history of esophageal strictures with plans for immunochemist referral for possible esophageal dilatation. Patient reports [...] Thin liquids via cup (single sip): 1 [place] thickened liquids via cup (single sip) : 1 [place] thickened liquids via cup (single sip): 2 [place] thickened liquids via cup (single sip): 1 [...] l functioning, with workup currently underway via immunochemist. Patient able to comprehend and express recommended [...] 1520 <Electronically signed by Eliezer Duke M.A., MUKESH-CREATIVE SERVICES WRITER> Date MUKESH Costa M.A.-CREATIVE SERVICES WRITER Co-Signature Required for all Medicare patients Date/Time Co-Signature CC: 29-Jan-2018 Swallowing Function w/Video Result: Comments: See Note; NOTES: [facility] Imaging Services [address] [place] [address] Swallowing Function w/Video MR#: [id number] Acct: [id number] Name: SUGEY LING Rep #: [id number] : 1950 F 67 From: Anam Larios MD PCP: Veronica Oquendo DO Status: REG CLI Study: Swallowing Function w/Video Date of Exam: 01/29/18 Exam# [id number] Ordering Dr: Isaías Stroud MD STUDY: SWALLOWING [...] Anam Larios MD at 14:25 EST Tel [phone], Service support , CC: Veronica flowers DO; Isaías Stroud Fabric Coating Supervisor: Signed 30-Dec-2017 Chest PA and Lateral Result: Comments: See Note; NOTES: [facility] Imaging Services [address] [place] [address] Chest PA and Lateral MR#: [id number] Acct: [id number] Name: SUGEY LING Rep #: [id number] : 1950 F 67 From: Anam Larios MD PCP: Veronica Oquendo DO Status: REG CLI Study: Chest PA and Lateral Date of Exam: 12/30/17 Exam# [id number] Ordering Dr: Octavio Delgado MD STUDY: X- [...] Anam Larios MD at 12:54 EST Tel [phone], Service support , CC: Veronica Oquendo DO; Octavio Delgado MD Fabric Coating Supervisor: Signed 22-Dec-2017 Chest PA and Lateral Result: Comments: See Note; NOTES: [facility] Imaging Services [address] [place] [address] Chest PA and Lateral MR#: [id number] Acct: [id number] Name: SUGEY LING Rep #: [id number] : 1950 F 67 From: Ronnie Bradford MD PCP: Veronica Oquendo DO Status: REG CLI Study: Chest PA and Lateral Date of Exam: 12/22/17 Exam# [id number] Ordering Dr: Kelsea Lund REGIONAL MERCHANDISING MANAGER-C STUDY: X-RAY C HEST REASON FOR EXAM: [...] , CC: NAKIA Lund; Veronica Oquendo DO Fabric Coating Supervisor: Signed 04-Dec-2017 Chest without Contrast Result: Comments: See Note; NOTES: [facility] Imaging Services [address] [place] [address] Chest without Contrast MR#: [id number] Acct: [id number] Name: SUGEY LING Rep #: [id number] : 1950 F 67 From: Rogelio Alston DO PCP: Veronica Oquendo DO Status: REG CLI Study: Chest without Contrast Date of Exam: 12/04/17 Exam# [id number] Ordering Dr: Octavio Delgado MD STUDY: CT [...] CT. 3. Hepatic steatosis. Electronically Signed: Rogelio ShaferonDO at 13:14 EST Tel [phone], Service support , CC: Veronica Oquendo DO; Octavio Delgado MD Fabric Coating Supervisor: Signed 17-Nov-2017 Emergency Department Summary Result: Comments: See Note; NOTES: [facility] Medical Records Department [address] [place] [address] Emergency Department Summary 11/16/17 1811 MR#: [id number] Acct: [id number] Name: SUGEY LING Rep #: [id number] : 1950 66 From: Lobito Lee MD [...] a prednisone taper and sees a pul brain picker. I believe that she should continue her [...] Aspiration event This note was generated with Blacklane dictation software. It may contain incorrect words, [...] your Primary Care Provider. Call [facility] ([phone]) or report to the closest Emergency Room. Call 911 if necessary. 11/17/17 0054 <Electronically signed by Lobito Lee MD> Date Lobito Lee MD Cosigner Signature (If Indicated): Date CC: Veronica Oquendo DO 16-Nov-2017 Chest PA and Lateral Result: Comments: See Note; NOTES: [facility] Imaging Services [address] [place] [address] Chest PA and Lateral MR#: [id number] Acct: [id number] Name: SUGEY LING Rep #: [id number] : 1950 F 66 From: Ivone Guevara MD PCP: Veronica Oquendo DO Status: REG ER Study: Chest PA and Lateral Date of Exam: 11/16/17 Exam# [id number] Ordering Dr: Lobito Lee MD STUDY: X-RAY [...] Fax CC: Veronica Oquendo DO; Lobito Lee Fabric Coating Supervisor: Signed 09-Oct-2017 Chest PA and Lateral Result: Comments: See Note; NOTES: [facility] Imaging Services [address] [place] [address] Chest PA and Lateral MR#: [id number] Acct: [id number] Name: SUGEY LING Rep #: [id number] : 1950 F 66 From: Anam Larios MD PCP: Veronica Oquendo DO Status: REG CLI Study: Chest PA and Lateral Date of Exam: 10/09/17 Exam# [id number] Ordering Dr: Will Oliveira MD STUDY: X-RAY [...] Anam Larios MD at 15:14 EST Tel [phone], Service support , CC: Veronica Oquendo DO; Will Oliveira MD Fabric Coating Supervisor: Signed 15-Jul-2017 PT D/C Summary (1) Result: Comments: See Note; NOTES: [facility] Physical Therapy [facility] [address] [place] [address]. [address] [place] [address] Fax REHABILITATION SERVICES DISCHAR GE SUMMARY MR#: [id number] Acct: [id number] Name: SUGEY LING Rep #: [id number] : 1950 66 From: Nghia Willis PT, Cert. T, OCS Referring Dr.: Chetan Medina MD Status: REG RCR Insurance: M EDICARE PART A B WPS FOR LIFE HP - PT D/C Summary [...] feel free to yamilka l me at [phone]. Thank you for the referral of this patient. Sincerely, Nghia Willis, PT, <Electronically signed by Nghia Willis PT, Cert. FAUSTO, OCS> 07/15/17 0817 CC: Chetan Medina MD; Veronica Oquendo DO WENCESLAO Signed 11-Jul-2017 Emergency Department Summary Result: Comments: See Note; NOTES: [facility] Medical Records Department [address] [place] [address] Emergency Department Summary 06/21/17 0738 MR#: [id number] Acct: [id number] Name: SUGEY LING Rep #: [id number] : 1950 66 From: Rufino Vela MD [...] ED Arthritis Gout Prescriptions: Hydrocodone Bitart/Apap 5-325 [Daven[place] 5/325] 1 - 2 tablet PO Q4H PRN PRN #7 tablet PRN Reason: Pain Referrals: Veronica Oquendo DO [Primary Care Provider] - What to do if you have Problems For any increased pain, shortness of breath, bleeding, na usea or vomiting, chest pain, or any unexpected problems, contact your Primary Care Provider. Call [facility] ([phone]) or report to the closest Emergency Room. Call 911 if necessary. 07/11 0903 <Electronically signed by Rufino Vela MD> Date Rufino Vela MD Cosigner Signature (If Indicated): Date ___ CC: Veronica Oquendo DO 21-Jun-2017 Discharge Instruction Result: Comments: See Note; NOTES: [facility] Medical Records Department [address] [place] [address] Discharge Instruction 06/21/17 0740 MR#: [id number] Acct: [id number] Name: Sissy LING [facility] Devin Rep #: [id number] : 1950 66 From: Rufino Vela MD PCP: Veronica Oquendo DO Status: REG ER ED Disposition - Plan for ED Patient: Chief Complaint: Lower Extremity Injury Instruction s: ED Arthritis Gout Prescriptions: Hydrocodone Bitart/Apap 5-325 [Davenport 5/325] 1 - 2 tablet PO Q4H PRN PRN #7 tablet PRN Reason: Pain Referrals: Veronica Oquendo DO [Primary Care Provider] - What to do if you have Problems For any increased pain, shortness of breath, bleeding, nausea or vomiting, chest pain, or any unexpected problems, contact your Primary Care Provider. Call [facility] ) or report to the closest Emergency Room. Call 911 if necessary. 06/21/17 0742 <Electronically signed by Rufino Vela MD> Date Rufino Vela MD Cosigner Signature (If Indicated): Date CC: Veronicamatilda Oquendo 19-Jun-2017 Re-Evaluation - PT (1) Result: Comments: See Note; NOTES: [facility] Physical Therapy [facility] [address] [place] [address]. [address] [place] [address] Fax [facility] MR#: [id number] Acct: [id number] Name: SUGEY LING Rep #: [id number] : 1950 66 From: Nghia Willis PT, [...] Weeks Goal Progress: Progressing Goal 5:: Pa solange will be able to sleep at least [...] do not hesitate to contact me at [phone] by phone or if you have questions [...] Bending Views Result: Comments: See Note; NOTES: [facility] Imaging Services [address] [place] [address] Verdana 4d L/S Spine Comp/w Bending Views MR#: [id number] Acct: [id number] Name: DAVE LING Lou Devin Rep #: [id number] : 1950 F 66 From: Ronnie Bradford MD PCP: Veronica Oquendo DO Status: REG CLI Study: L/S Spine Comp/w Bending Views Date of Exam: 06/09/17 Exam# [id number] Ordering Dr: Alicia Chirinos MD STUDY: X-RAY [...] CC: Tia Chirinos M.D.; Veronica Oquendo DO Fabric Coating Supervisor: Signed 26-May-2017 Re-Evaluation - PT (1) Result: Comments: See Note; NOTES: [facility] Physical Therapy [facility] [address] [place] [address] Fax REEVALUATION / MEDICARE RECERTI [facility] 4d PHYSICAL THERAPY MR#: [id number] Acct: [id number] Name: SUGEY LING Rep #: [id number] : 1950 66 From: Nghia Willis PT, [...] flexion- B-4/5, Knee flexion- B-4/5, knee extension- /, DF- /5 Plan Plan: Cont. POC Goals Goal 1:: [...] do not hesitate to contact me at [phone] by phone or if you have questions [...] Study (HP) Result: Comments: See Note; NOTES: [facility] Imaging Services [address] [place] [address] Verdana 4d Dexa Bone Density Study (HP) MR#: [id number] Acct: [id number] Name: SUGEY LING Rep #: [id number] : 1950 F 66 From: Anam Larios MD PCP: Veronica Oquendo DO Status: [facility] CLI Study: Dexa Bone Density Study (HP) Date of Exam: 05/12/17 Exam# [id number] Ordering Dr: Veronica Bridges DO STUDY: DUAL [...] Anam Larios MD at 12:45 EDT Tel [phone], Service support , CC: Veronica Oquendo DO Fabric Coating Supervisor: Signed 12-May-2017 SCREENING MAMM (CAD), BILAT Result: Comments: See Note; NOTES: [facility] Imaging Services [address] [place] [address] Fili 4d SCREENING MAMM (CAD), BILAT MR#: [id number] Acct: [id number] Name: SUGEY LING Rep #: [id number] : 1950 F 66 From: Royce Phipps MD PCP: Veronica Oquendo DO Status: REG CLI Study: SCREENING MAMM (CAD), BILAT Date of Exam: 05/12/17 Exam# [id number] Ordering Dr: Bren Oquendo DO MAMMOGRAPHY - [...] delay biopsy of a clinically suspicious abnormality. [id number] Electronically Signed: Royce Phipps MD at 13:24 EDT Tel , Service support [phone], CC: Veronica Oquendo DO Fabric Coating Supervisor: Signed 30-Apr-2017 Inital Evaluation (1) - PT Result: Comments: See Note; NOTES: [facility] Physical Therapy [facility] [address] [place] [address] Fax REHABILITATION SERVICES INITIAL EVALUATION MR#: [id number] Acct: [id number] Name: SUGEY LING Rep #: [id number] : 1950 66 From: Nghia Willis PT, Cert. MDT, OCS Referring Dr.: Chetan Medina MD Status: REG RCR Insurance: MEDICARE PART A B WPS 2NDNATURE LIFE Patient's Visit Information SUGEY LING is [...] to be FAXED BACK to us at [phone] for Medicare purposes. Please let me know if there are questions or concerns rega rding this plan of care. Physician Signature: Date: <Electronically signed by Nghia Willis PT, Cert. FAUSTO, OCS> 04/30/17 1733 CC: Chetan Medina MD; Veronica Oquendo DO WENCESLAO Signed For Medicare only, by signing this I certify the plan of care. Physicians Signature Date 24-Apr-2017 Spine Lumbar (Routine) Result: Comments: See Note; NOTES: [facility] Imaging Services [address] [place] [address] Verdana 4d Spine Lumbar (Routine) MR#: [id number] Acct: [id number] Name: SUGEY LING Rep #: [id number] : 1950 F 66 From: Ronnie Bradford MD PCP: Veronica Oquendo DO Status: REG CLI Study: Spine Lumbar (Routine) Date of Exam: 04/24/17 Exam# [id number] Ordering Dr: Chetan Medina MD [facility]: MRI LUMBAR SPINE WITHOUT CONTRAST REASON FOR [...] CC: Chetan Medina MD; Veronica Oquendo DO Fabric Coating Supervisor: Signed 15-Apr-2017 Hips B/L min 2 views w/ Pelvis Result: Comments: See Note; NOTES: [facility] Imaging Services [address] [place] [address] Verdana 4d Hips B/L min 2 views w/ Pelvis MR#: [id number] Acct: [id number] Name: SUSHILDAVE Lou Devin Rep #: [id number] : 1950 F 66 From: Jeremiah Ramos MD PCP: Veronica Oquendo DO Status: REG CLI Study: Hips B/L min 2 views w/ Pelvis Date of Exam: 04/15/17 Exam# [id number] Ordering Dr: Chetan Hubbard MD STUDY: X-RAY [...] CC: Chetan Medina MD; Veronica Oquendo DO Fabric Coating Supervisor: Signed 16-Jul-2016 Spirometry (06241) Result: 16-Jul-2016 ELECTROCARDIOGRAM, COMPLETE (ECG) (09557) Comments: no new chg cmpared to last ekg Result: [MEASUREMENTS ANALYSIS] Date of Test: 07/16/2016 11:05:02; Heart Rate: 69; MO Interval: 144; QRS: 104; QT Interval: 394; Corrected QT Interval (QTc): 409; P [place]: 56; QRS [place]: 55; T [place] : 90; Blood Pressure: 122/78 [ECG DIAGNOSTIC STATEMENTS] Date of Test: 07/16/2016 11:05:02; Summary: Sinus Rhythm Low voltage in limb leads. - Negative T- waves -Possible Anterior ischemia. ABNORMAL 04-Jul-2016 Knee 4 or More Views Result: Comments: See Note; NOTES: [facility] Imaging Services [address] [place] [address] Verdana 4d Knee 4 or More Views MR#: [id number] Acct: [id number] Name: SUGEY LING Rep # : [id number] : 1950 F 65 From: Ivone Guevara MD PCP: Veronica Oquendo DO Status: REG CLI Study: Knee 4 or More Views Date of Exam: 07/04/16 Exam# [id number] Ordering Dr: Kassandra Fortune STUDY: X-RAY - [...] at 16:23 EDT Tel , Service support [phone], CC: Kassandra Fortune; Veronica Oquendo DO Fabric Coating Supervisor: Signed 03-Jun-2016 Emergency Department Summary Result: Comments: See Note; NOTES: [facility] Medical Records Department [address] [place] [address] Emergency Department Summary MR#: [id number] Acct: [id number] Name: SUGEY LING Rep #: [id number] : 1950 65 From: Ronaldo Verduzco MD PCP: Veronica Oquendo DO Status: [facility] ER DATE OF SERVICE: 06/03/2016 HISTORY OF [...] C: Veronica Reeder MD T: NTS JOB: [id number] 06/03/16 1307 <Electronically signed by Ronaldo Verduzco MD> Date Ronaldo Verduzco MD Cosigner Signature (If Indicated): Date CC: Veronica Oquendo DO; Will Oliveira MD Date Dictated: 06/03/16 1232 Date Transcribed: 06/03/161231 Fabric Coating Supervisor: Signed 03-Jun-2016 Discharge Instruction Result: Comments: See Note; NOTES: [facility] Medical Records Department [address] [place] [address] Discharge Instruction 06/03/16 1230 MR#: [id number] Acct: [id number] Name: SUGEY LING Rep #: [id number] : 1950 65 From: Ronaldo Verduzco MD PCP: Veronica Oquendo DO Status: REG ER ED Disposition - Plan for ED Patient: Disposition: Home or Assisted Living [facility] Complaint: Fall Instructions: ED Fracture, Shoulder, ED Sling And Swathe Prescriptions: Oxycodone HCl/Acetaminophen [Percocet 5/325] 1 tablet PO Q4H PRN PRN #30 tablet PRN Reason: Pain Referra ls: Veronica qOuendo DO [Primary Care Provider] - Will Oliveira MD [STAFF PHYSICIAN] - 1 Week What to do if you have Problems For any increased pain, shortness of breath, bleeding, nausea or vo miting, chest pain, or any unexpected problems, contact your doctor. Call [facility] ([phone]) or report to the closest Emergency Room. Call 911 if necessary. 06/03/16 1234 <El ectronically signed by Ronaldo Verduzco MD> Date Ronaldo Verduzco MD Cosigner Signature (If Indicated): Date CC: Veronica Oquendo DO 03-Jun-2016 Shoulder min 2 Views Result: Comments: See Note; NOTES: [facility] Imaging Services [address] [place] [address] Verdana 4d Shoulder min 2 Views MR#: [id number] Acct: [id number] Name: SUGEY LING Rep #: [id number] : 1950 F 65 From: Anam Larios MD PCP: Veronica Oquendo DO Status: REG ER Study: Shoulder min 2 Views Date of Exam: 06/03/16 Exam# [id number] Ordering Dr: Ronaldo Verduzco MD STUDY: X-RAY [...] Anam Larios MD at 12:42 EDT Tel [phone], Service support [phone], RAD/Shoulder min 2 Views IMPRESSION: I suspect a nondisplaced impacted fracture of the surgical neck of the humerus. Electronically Signed: Anam rinaldi MD at 12:42 EDT Tel [phone], Service support [phone], CC: Veronica Oquendo DO; Ronaldo Verduzco MD Fabric Coating Supervisor: Signed 13-May-2016 L/S Spine Min 4 Views Result: Comments: See Note; NOTES: [facility] Imaging Services [address] [place] [address] Verda 4d L/S Spine Min 4 Views MR#: [id number] Acct: [id number] Name: SUGEY LING Rep #: [id number] : 1950 F 65 From: Anam Larios MD PCP: Veronica Oquendo DO Status: REG CLI Study: L/S Spine Min 4 Views Date of Exam: 05/13/16 Exam# [id number] Ordering Dr: Chetan Luo MD STUDY: X-RAY [...] Anam Larios MD at 8:31 EDT Tel [phone], Service support [phone], RAD/L/S Spine Min 4 Views IMPRESSION: Status post laminectomy and fusion at the L4-L5 and L5-S1 levels with prosthetic disc insertion. Grade 2 anterior listhesis of L5 on S1. Electron ically Signed: Anam Larios MD at 8:31 EDT Tel [phone], Service support [phone], CC: Chetan Medina MD; Veronica Oquendo DO Fabric Coating Supervisor: Signed 13-May-2016 Chest WITH Contrast Result: Comments: See Note; NOTES: [facility] Imaging Services [address] [place] [address] Verdana 4d Chest WITH Contrast MR#: [id number] Acct: [id number] Name: Sissy LING Rep #: [id number] : 1950 F 65 From: Anam Larios MD PCP: Veronica Oquendo DO Status: REG CLI Study: Chest WITH Contrast Date of Exam: 05/13/16 Exam# [id number] Ordering Dr: Veronica Oquendo DO STUDY: CT [...] Anam Larios MD at 8:42 EDT Tel [phone], Service support , CC: Veronica Oquendo DO Fabric Coating Supervisor: Signed 09-May-2016 Bilat Scrn Digital AND CAD Result: Comments: See Note; NOTES: [facility] Imaging Services [address] [address] Verdana 4d Bilat Scrn Digital AND CAD MR#: [id number] Acct: [id number] Name: SUGEY LING Rep #: [id number] : 1950 F 65 From: Anam Larios MD PCP: Veronica Oquendo DO Status: REG CLI Study: Bilat Scrn Digital AND CAD Date of Exam: 05/09/16 Exam# [id number] Order ing Dr: Veronica Oquendo DO MAMMOGRAPHY [...] delay biopsy of a clinically suspicious abnormality. [id number] Electronically Signed: nAam Larios MD at 10:46 EDT Tel [phone], Se rvice support [phone], CC: Veronica Oquendo DO Fabric Coating Supervisor: Signed 09-May-2016 Chest PA and Lateral Result: Comments: See Note; NOTES: [facility] Imaging Services [address] [place] [address] Verdana 4d Chest PA and Lateral MR#: [id number] Acct: [id number] Name: SUGEY LING Rep #: [id number] : 1950 F 65 From: Anam Larios MD PCP: Veronica Oquendo DO Status: REG CLI Study: Chest PA and Lateral Date of Exam: 05/09/16 Exam# [id number] Ordering Dr: Veronica Davidson DO STUDY: X-RAY [...] Anam Larios MD at 9:41 EDT Tel [phone], Service support [phone], RAD/Chest PA and Lateral IMPRESSION: Focal area of increased markings in the right midlung. Followup is recommended. Electronically Signed: Anam Larios MD at 9:41 EDT Tel [phone], Service support [phone], CC: Veronica Oquendo DO Fabric Coating Supervisor: Signed 15-Apr-2016 Knee 4 or More Views Result: Comments: See Note; NOTES: [facility] Imaging Services [address] [place] [address] Verdana 4d Knee 4 or More Views MR#: [id number] Acct: [id number] Name: SUGEY LING Rep #: [id number] : 1950 F 65 From: Royce Phipps MD PCP: Veronica Oquendo DO Status: REG CLI Study: Knee 4 or More Views Date of Exam: 04/15/16 Exam# [id number] Ordering Dr: Tad Oquendo DO STUDY: X-RAY [...] 10:30 EDT Tel , Servic e support [phone], RAD/Knee 4 or More Views IMPRESSION: Degenerative arthrosis. Electronically Signed: Royce Phipps MD at 10:30 EDT Tel , Service support [phone], CC: Veronica Oquendo DO Fabric Coating Supervisor: Signed 15-Apr-2016 Knee 4 or More Views Result: Comments: See Note; NOTES: [facility] Imaging Services [address] [place] [address] Verdana 4d Knee 4 or More Views MR#: [id number] Acct: [id number] Name: SUGEY LING Rep #: [id number] : 1950 F 65 From: Royce Phipps MD PCP: Veronica Oquendo DO Status: REG CLI Study: Knee 4 or More Views Date of Exam: 04/15/16 Exam# [id number] Ordering Dr: Tad Oquendo DO STUDY: X-RAY [...] 10:39 EDT Tel , Ser vice support [phone], RAD/Knee 4 or More Views IMPRESSION: Degenerative arthrosis. Electronically Signed: Royce Phipps MD at 10:39 EDT Te l , Service support [phone], CC: Veronica Oquendo DO Fabric Coating Supervisor: Signed 30-Jul-2015 Spirometry (07183) Result: 19-Jul-2015 Spirometry (37841) Comments: mild obstruction - asx Result: 08-May-2015 Bilat Scrn Digital AND CAD Result: Comments: See Note; NOTES: [facility] Imaging Services [address] [place] [address] Breast Imaging Report MR#: [id number] Acct: [id number] Name: SUGEY LING Rep #: [id number] : 1950 F 64 From: Anam Larios MD PCP: Veronica Oquendo DO Status: REG CLI Study: Bilat Scrn Digital AND CAD Date of Exam: 05/08/15 Exam# [id number] Ordering Dr: Pippa Oquendo DO MAMMOGRAPHY - [...] Jj Larios MD at 10:50 EDT Tel [phone], Service support [phone], CC: Veronica Oquendo DO Fabric Coating Supervisor: Signed 08-May-2015 Dexa Bone Density Study (HP) Result: Comments: See Note; NOTES: [facility] Imaging Services [address] [place] [address] Bone Density Report MR#: [id number] Acct: [id number] Name: SUGEY LING Rep #: [id number] : 1950 F 64 From: Anam Larios MD PCP: Veronica Oquendo DO [facility] Study: Dexa Bone Density Study (HP) Date of Exam: 05/08/15 Exam# [id number] Ordering Dr: Pippa Oquendo DO STUDY: DUAL [...] Anam Larios MD at 15:32 EDT Tel [phone], Service support [phone], CC: Veronica Oquendo DO Fabric Coating Supervisor: Signed 27-Apr-2015 Chest PA and Lateral Result: Comments: See Note; NOTES: [facility] Imaging Services [address] [place] [address] Radiology Report MR#: [id number] Acct: [id number] Name: SUGEY LING Rep #: [id number] : 1950 F 64 From: Lilian Dominguez MD PCP: Veronica Oquendo DO Status: REG CLI Study: Chest PA and Lateral Date of Exam: 04/27/15 Exam# [id number] Ordering Dr: Veronica Oquendo DO STUDY : [...] MD at 22:33 EDT , Service support [phone], RAD/Chest PA and Lateral IMPRESSION: No acute cardiopulmonary findings or changes. Mild hyper expansion and stable mild chronic lung changes. Stigmata of prior granulomatous disease. Atherosclerosis. Demineralized osseous structures and dextroscoliosis. Electronically Signed: Lilian Dominguez MD at 22:33 EDT , Service support [phone], CC: Veronica Oquendo DO Fabric Coating Supervisor: Signed 31-May-2014 Foot min 3 Views Result: Comments: See Note; NOTES: [facility] Imaging Services [address] [place] [address] Radiology Report MR#: [id number] Acct: [id number] Name: SUGEY LING Rep #: [id number] : 1950 F 63 From: Celso Guerrero DO PCP: Veronica Oquendo DO Status: REG CLI Study: Foot min 3 Views Date of Exam: 05/31/14 Exam# [id number] Ordering Dr: Jade Benson MD STUDY: X-RAY [...] at 9:32 EDT Tel , Service support [phone], CC: Veronica Oquendo DO; Jade Benson MD Fabric Coating Supervisor: Signed 31-May-2014 Foot min 3 Views Result: Comments: See Note; NOTES: [facility] Imaging Services [address] [place] [address] Radiology Report MR#: [id number] Acct: [id number] Name: SUGEY LING Rep #: [id number] : 1950 F 63 From: Celso Guerrero DO PCP: Veronica Oquendo DO Status: REG CLI Study: Foot min 3 Views Date of Exam: 05/31/14 Exam# [id number] Ordering Dr: Jade Benson MD STUDY: X-RAY [...] DO at 9:34 EDT , Service support [phone], CC: Veronica Oquendo DO; Jade Benson MD Fabric Coating Supervisor: Signed 31-May-2014 Hand Min 3 Views Result: Comments: See Note; NOTES: [facility] Imaging Services [address] [place] [address] Radiology Report MR#: [id number] Acct: [id number] Name: SUGEY LING Rep #: [id number] : 1950 F 63 From: Celso Guerrero DO PCP: Veronica Oquendo DO Status: REG CLI Study: Hand Min 3 Views Date of Exam: 05/31/14 Exam# [id number] Ordering Dr: Jade Benson MD STUDY: X-RAY [...] DO at 9:42 EDT , Service support [phone], CC: Veronica Oquendo DO; Jade Benson MD Fabric Coating Supervisor: Signed 31-May-2014 Hand Min 3 Views Result: Comments: See Note; NOTES: [facility] Imaging Services [address] [place] [address] Radiology Report MR#: [id number] Acct: [id number] Name: SUGEY LING Rep #: [id number] : 1950 F 63 From: Celso Guerrero DO PCP: Veronica Oquendo DO Status: REG CLI Study: Hand Min 3 Views Date of Exam: 05/31/14 Exam# [id number] Ordering Dr: aJde Benson MD STUDY: X-RAY - LEFT HAND [...] at 9:43 EDT , Servic e support [phone], RAD/Hand Min 3 Views IMPRESSION: Osteopenia with degenerative changes. No acute fracture demonstrated. Electronically Signed: Ashok keith DO at 9:43 EDT , Service support [phone], CC: Veronica Oquendo DO; Jade Benson MD Fabric Coating Supervisor: Signed 19-May-2014 Chest PA and Lateral Result: Comments: See Note; NOTES: [facility] Imaging Services [address] [place] [address] Radiology Report MR#: [id number] Acct: [id number] Name: SUGEY LING Rep #: [id number] : 1950 F 63 From: Marciano Fountain MD PCP: Status: REG CLI Study: Chest PA and Lateral Date of Exam: 05/19/14 Exam# [id number] Ordering Dr: Veronica Oquendo DO STUDY: X-RAY [...] MD at 5:44 EDT , Service support [phone], CC: Veronica Oquendo DO Fabric Coating Supervisor: Signed 18-Apr-2014 EKG (56037) Comments: nsr no acute chg Result: [MEASUREMENTS ANALYSIS] Date of Test: 04/18/2014 09:33:28; Heart Rate: 72; MO Interval: 148; QRS: 108; QT Interval: 392; Corrected QT Interval (QTc): 413; P [place]: 63; QRS [place]: 59; T [place] : 66; Blood Pressure: 138/62 [ECG DIAGNOSTIC STATEMENTS] Date of Test: 04/18/2014 09:33:28; Summary: Sinus Rhythm Low voltage in limb leads. - Negative precordial T-waves. ABNORMAL 16-Sep-2013 Bilat Scrn Digital & CAD Result: Comments: See Note; NOTES: [facility] Imaging Services [address] [place] [address] Breast Imaging Report MR#: [id number] Acct: [id number] Name: SUGEY LING Rep #: [id number] : 1950 F 62 From: Anam Larios MD PCP: Veronica Oquendo DO Status: REG CLI Exam# [id number] Ordering Dr: Veronica Oquendo DO MAMMOGRAPHY - [...] September 16, 2013 at 9:43:10 AM EDT [phone] Electronically Signed GP/GP If you are the referring physician and would like to consult with the radiologist who provided this interpretation, please contact Anam Webb i, M.D. at [phone]. If this radiologist is unavailable, you will be directed to another radiologist to assist. If you are a patient with a question regarding this report, please contact your [facility] directly. Professional Interpretation Provided By: [employer], Phone , These documents contain legally protected [...] of these documents. CC: Veronica Oquendo DO Fabric Coating Supervisor: Signed Family History Unknown Family Member Name [...] smoker Vital Signs Date Test Result Details 82-Haj-570613:55 Temperature 97.8 f Comments: Method: Temporal Pulse 79 /min Comments: Pattern: Regular Respiration Rate 18 /min Comments: Pattern: Unlabored O2 SAT 96 % Comments: Room air BP Systolic 142 mm[Hg] Comments: Patient Position: Sitting; Cuff Location: Left Arm; Cuff Size: Standard BP Diastolic 78 mm[Hg] Comments: Patient Position: Sitting; Cuff Location: Left Arm; Cuff Size: Standard Weight 203.375 lb Height 60 in Body Mass Index Calculated 39.72 kg/m2 Body Surface Area Calculated 1.88 m2 :23 Pulse 74 /min Comments: Pattern: Regular [...] kg/m2 Body Surface Area Calculated 1.85 m2 :51 Temperature 98.4 f Comments: Method: Tympanic Respiration [...] Surface Area Calculated 1.86 m2 :39 Comments: [facility] Pulse 84 /min Comments: Pattern: Regular Respiration [...] kg/m2 Body Surface Area Calculated 1.9 m2 17-Xvp-541553:10 Pulse 96 /min Comments: Pattern: Regular Respiration [...] kg/m2 Body Surface Area Calculated 1.9 m2 83-Nwo-014862:16 Pulse 84 /min Comments: Pattern: Regular Respiration [...] kg/m2 Body Surface Area Calculated 1.9 m2 08-Jgi-236561:30 Temperature 98.4 f Comments: Method: Temporal Pulse [...] kg/m2 Body Surface Area Calculated 1.91 m2 29-Dqd-383551:42 Temperature 96.8 f Pulse 90 /min Comments: [...] kg/m2 Body Surface Area Calculated 1.89 m2 :17 Comments: [facility] and had a glaucoma test donehearing [facility] [...] Surface Area Calculated 1.88 m2 :01 Temperature 97 f Comments: Method: Tympanic Pulse [...] kg/m2 Body Surface Area Calculated 1.9 m2 80-Fph-512536:22 Pulse 79 /min Comments: Pattern: Regular Respiration [...] kg/m2 Body Surface Area Calculated 1.84 m2 21-Iyp-406744:06 Pulse 64 /min Comments: Pattern: Regular Respiration [...] 1.83 m2 Results Date Description Value Details 20-Ndz-90090:00 Basic Metabolic Profile (BMP) Comments: [facility] [address] [place], [address] GAP 5 (Normal) Range: 5-15 CO2 29.0 mmol/L (Normal) Range: 21.0-32.0 CL 108 mmol/L (Abnormal) Range: 98-107 K 4.9 mmol/L (Normal) Range: 3.5-5.1 NA 142 mmol/L (Normal) Range: 136-145 CA 9.7 mg/dL (Normal) Range: 8.5-10.1 BUN/CRE 23.1 {RATIO} (Abnormal) Range: 10-20 EST GFR - AA 41 mL/min (Abnormal) Comments: GFR Calc EST GFR 34 mL/min (Abnormal) Comments: Non- GFR Calc CREAT,SERUM 1.60 mg/dL (Abnormal) Range: 0.55-1.02 Comments: The validity of the calculated GFR AND GFRAA in patients over70 years has not been determined. Clinical correlation isessential. BUN 37 mg/dL (Abnormal) Range: 7-18 GLU 104 mg/dL (Normal) Range: 74-106 Comments: Fasting Glucose result from 100 to 125 mg/dLsuggests IMPAIRED HOMEOSTASIS per A.D.A. criteria.Please note revised GLUCOSE reference range wzgzbljus56/02/2018. 00-Ntp-811648:23 Microscopic Examination Comments: PATIENT WAS FASTINGPERFORMED BY: BN [facility] [address] [id number] BY: CB [facility] Muysni5030 [facility] [id number] Bacteria Few (Normal) Epithelial Cells (non renal) 0-10 {/hpf} (Normal) Range: 0 - 10 RBC 0-2 {/hpf} (Normal) Range: 0 - 2 WBC 0-5 {/hpf} (Normal) Range: 0 - 5 09-Ybv-942649:23 CALCIFIDIOL (63643) VIT D Comments: PATIENT WAS FASTINGPERFORMED BY: [employer] [id number] BY: [employer] Ynnhey1004 [facility] [id number] 25 Vitamin D, 25-Hydroxy 47.6 ng/mL (Normal) Range: 30.0-100.0 Comments: Vitamin D deficiency has been defined by the [place] of[place] and an Endocrine Society practice guideline as alevel of serum 25-OH vitamin D less than 20 ng/mL (1,2).The Endocrine Society went on to further define vitamin Dinsufficiency as a level between 21 and 29 ng/mL (2).1. IOM ([place] of [employer]). 2010. Dietary reference intakes for calcium and D. [place]: The National Academies Press.2. Stephon MF, Ana ROY, Alka ROMERO, et al. Evaluation, treatment, and prevention of vitamin D deficiency: an Endocrine Society clinical practice guideline. JCEM. 2010; 96(7):1911-30. 32-Otn-408701:23 TSH (54167) Comments: PATIENT WAS FASTINGPERFORMED BY: [employer] [id number] BY: [employer] Juayvx2708 [facility] [id number] TSH 2.870 {uIU/mL} (Normal) Range: 0.450-4.500 50-Siv-081842:23 URINALYSIS, W/ MICRO Comments: PATIENT WAS FASTINGPERFORMED BY: [employer] [id number] BY: ShopventorySaint Barnabas Behavioral Health CenterXvmwlx7803 [facility] [id number] (83402) Microscopic Examination See below: (Normal) Comments: Microscopic was indicated and was performed. Nitrite, Urine Positive (Abnormal) Urobilinogen,Semi-Qn 0.2 mg/dL (Normal) Range: 0.2-1.0 Bilirubin Negative (Normal) Occult Blood Negative (Normal) Ketones Negative (Normal) Glucose Negative (Normal) Protein Negative (Normal) WBC Esterase 1+ (Abnormal) Appearance Clear (Normal) Urine-Color Yellow (Normal) pH 6.5 (Normal) Range: 5.0-7.5 Specific [place] 1.020 (Normal) Range: 1.005-1.030 38-Vku-681541:23 MICROALBUMIN: CREATININE Comments: PATIENT WAS FASTINGPERFORMED BY: [employer] [id number] BY: [employer] [id number] RATIO (48541) AND (09068) Alb/Creat Ratio 6.4 {mg/g_creat} (Normal) Range: 0.0-30.0 Comments: Normal: 0.0 - 30.0 Albuminuria: 31.0 - 300.0 Clinical albuminuria: >300.0 Albumin, Urine 4.4 ug/mL (Normal) Creatinine, Urine 68.8 mg/dL (Normal) 16-Ggf-782185:23 METABOLIC PANEL, Comments: PATIENT WAS FASTINGPERFORMED BY: [employer] [id number] BY: [employer] [id number] COMPREHENSIVE (64525) ALT (SGPT) 18 [iU]/L (Normal) Range: 0-32 [...] 8-27 Glucose 120 mg/dL (Abnormal) Range: 65-99 08-Zfc-368773:23 LIPOPROTEIN, BLD, BY NMR Comments: PATIENT WAS FASTINGPERFORMED BY: BN [facility] Waticyyasg[address] [facility] [id number] BY: CB [facility] Zsheom2685 [facility] [id number] (66915) LP-IR Score 63 (Abnormal) Comments: INSULIN RESISTANCE MARKER <--Insulin Sensitive Insulin Resistant--> Percentile in Reference PopulationInsulin Resistance ScoreLP-IR Score Low 25th 50th 75th High <27 27 45 63 >63LP-IR Score is inaccurate if patient is non-fasting. .The LP-IR score is a laboratory developed i [facility] [place] that has beenassociated with insulin resistance and [...] were developed and their performance characteristicsdetermined by [employer] [place]. These assays have not been cleared by [...] 1600 - 2000 Very High > 2000 26-Ypb-217411:23 CBC W/AUTO DIFF WBC Comments: PATIENT WAS FASTINGPERFORMED BY: BN [facility] Zxzmlbdjdw[address] [facility] [place] [id number] BY: [facility] Nqwcgt7217 [facility] [id number] (93043) Immature Grans (Abs) 0.0 {x10E3/uL} (Normal) Range: [...] (Normal) Range: 3.4-10.8 :27 HgA1C , Office (27899) HgA1C , Office 7.4 % (Abnormal) Range: 4.6 - 7.1 :27 Blood Glucose , Office (18007) Blood Glucose , Office 143 (Normal) 8-Vrf-934489:21 CBC-Complete Blood Cnt No Diff Comments: [facility] [address] [place], [address] MPV 9.8 fL (Normal) Range: 6.2-12.0 PLT [...] 4.2-5.4 WBC 7.0 K/mm3 (Normal) Range: 4.4-11.0 4-Etd-907859:21 Magnesium Comments: [facility] [address] [place], [address] MG 1.9 mg/dL (Normal) Range: 1.6-2.6 7-Lwk-004774:21 Protein+Creatinine Ratio,Urine Comments: [facility] [address] [place], [address] PROT:CRE RATIO 116 {mg/g_CRE} (Normal) Range: 0-200 PROTEIN,UR.RAN. 8.6 mg/dL (Normal) UR CREAT 74.00 mg/dL (Normal) 2-Lys-892859:21 PTHIN 36.7 pg/mL (Normal) Comments: [facility] [address] [place], [address] Range: 18.4-80.1 7-Oqs-691595:21 Renal Profile Comments: [facility] [address] [place], [address] CO2 27.0 mmol/L (Normal) Range: 21.0-32.0 CL [...] A.D.A. criteria.Please note revised GLUCOSE reference range wuzibjjky17/02/2018. 0-Rmq-374990:21 Uric Acid Comments: [facility] [address] [place], [address] URIC 5.6 mg/dL (Normal) Range: 2.6-6.0 Comments: The drugs N-Acetylcysteine and Metamizole may falselydepress this assay. :21 Vitamin D,25 Hydroxy Comments: [facility] [address] [place], [address] Vitamin D 25-OH 32.8 ng/mL (Normal) Range: 29.95-100.01 Comments: Vitamin D 25(OH) Status Range Deficiency <20 ng/mL (50nmol/L) Insuffciency 20 - 30 ng/mL (50 - 75 nmol/L) Sufficiency 30 - 100 ng/mL (75 - 250 nmol/L) Toxicity >100 ng/mL (>250 nmol/L) :59 URIC ACID BLOOD (27475) Comments: PATIENT NOT FASTINGPERFORMED BY: [facility] Ejilba5049 [facility] [id number] Uric Acid 8.7 mg/dL (Abnormal) Range: 2.5-7.1 Comments: Therapeutic target for gout patients: <6.0 :34 HgA1C , Office (11274) HgA1C , Office 6.5 % (Normal) Range: 4.6 - 7.1 :33 Blood Glucose , Office (44715) Blood Glucose , Office 103 (Normal) :32 Basic Metabolic Profile (BMP) Comments: [facility] [address] [place], [address] GAP 3 (Abnormal) Range: 5-15 CO2 31.0 [...] A.D.A. criteria.Please note revised GLUCOSE reference range egiapaftb91/02/2018. :36 HgA1C , Office (96754) HgA1C , Office 6.6 % (Normal) Range: 4.6 - 7.1 :36 Blood Glucose , Office (48524) Blood Glucose , Office 186 (Normal) Comments: not fasting 1-Hgv-259683:28 Miscellaneous Lab Procedure Comments: Comments: TRAMADOL URINE [id number](s) Ordered: URINE TOXICOLOGY [id number] RUN LOWEST [facility] [address] [place], [place], [address] [facility] [place] Comments: [id number] 6+OXYCODONE-BUND (ng/mL)DRUG RESULT SCREEN CUTOFF____ Amphetamines,Urine Negat LAB (Normal) emy ng/mL 1000Amphetamine test includes Amphetamine and Methamphetamine.Barbiturates Negative ng/mL 200Benzodiazepines Negative ng/mL 200Cannabinoid TEST Negative ng/mL 20Cocaine (Metab) Negative ng/mL 300Opiates Negative ng/mL 300 Opiates test includes Codeine, Morphine, Hydromorphone, Maud codone.Oxycodone/Oxymorphone,Urine Negative ng/mL 300 Test includes Oxydodone and Oxymorphone. TESTING PERFORMED AT [facility]. ORIGINAL REPORT ON FILE IN LAB CONTAINS ADDITIONAL TEST SITE INFORMATION. 5-Otl-918836:28 Miscellaneous Lab Procedure 2 Comments: Comments: TRAMADOL URINE [id number] Test(s) Ordered by Physician: URINE TOXICOLOGY [id number] RUN [facility] [address] [place], [address] [facility] [place] [facility] Comments: TEST RESULT LIMITSTramadol Positive Cutoff = 200 Tramadol GC/MS COnf 6050 ng/mL Cutoff = 100 LAB (Normal) TESTING PERFORMED AT [facility]. ORIGINAL REPORT ON FILE IN LAB CONTAINS ADDITIONAL TEST SITE INFORMATION. TEST 2 7-Qfy-503089:28 Urine Drug Screen (VISTA) Comments: Comments: TRAMADOL URINE [id number] of Drugs Taken or Suspected? [facility] [address] [place], [address] THC NEGATIVE (Normal) PCP NEGATIVE (Normal) [...] TESTING MUST BE ORDERED SEPARATELY. USE TESTMNEMONIC: [facility] 22-Jfl-022843:14 CBC-Complete Blood Cnt No Diff Comments: [facility] [address] [place], [place], [address] MPV 9.5 fL (Normal) Range: 6.2-12.0 PLT [...] 4.2-5.4 WBC 9.7 K/mm3 (Normal) Range: 4.4-11.0 75-Mwf-080033:14 Magnesium Comments: [facility] [address] [place], [place], [address] MG 1.7 mg/dL (Normal) Range: 1.6-2.6 14-Omv-331951:14 Microalb:Creat Ratio,Random UR Comments: [facility] [address] [place], [place], [address] MALB:CREAT 5.5 {mg/g_CRE} (Normal) MICROALBUMIN,UR 6.1 mg/L (Normal) UR CREAT 111.00 mg/dL (Normal) 04-Ssk-025576:1 PTHIN 25.7 pg/mL (Normal) Comments: [facility] [address] [place], [address] 4 Range: 18.4-80.1 Comments: Please Note: PTH INTACT METHOD AND REFERENCE RANGE CHANGEEffective 11/18/2017. 64-Dec-399293:14 Renal Profile Comments: [facility] [address] [place], [address] CO2 27.0 mmol/L (Normal) Range: 21.0-32.0 CL [...] A.D.A. criteria.Please note revised GLUCOSE reference range ioqjnycda96/02/2018. 08-Zph-555608:14 Uric Acid Comments: [facility] [address] [place], [address] URIC 8.4 mg/dL (Abnormal) Range: 2.6-6.0 Comments: The drugs N-Acetylcysteine and Metamizole may falselydepress this assay. 02-Qkr-160081:14 Vitamin D,25 Hydroxy Comments: [facility] [address] [place], [address] Vitamin D 25-OH 36.6 ng/mL (Normal) Range: 29.95-100.01 Comments: Vitamin D 25(OH) Status Range Deficiency <20 ng/mL (50nmol/L) Insuffciency 20 - 30 ng/mL (50 - 75 nmol/L) Sufficiency 30 - 100 ng/mL (75 - 250 nmol/L) Toxicity >100 ng/mL (>250 nmol/L) 80-Ijy-76006:27 HgA1C , Office (03861) HgA1C , Office 6.7 % (Normal) Range: 4.6 - 7.1 5-Vnq-607042:13 Bedside Glucose Comments: [facility] LaboratoryPoint of [address] [place] [address] BEDSIDE GLU 132 mg/dL (Abnormal) Range: 70-110 Comments: MANAGEMENT OF PATIENT CARE PER NURSING PROTOCOL 08-Jan-20180:00 Culture, Bronch Aveolar Lavage Comments: [facility] [address] [place], [address] CUBRL See Note (Normal) Comments: List Antibiotics Last 48 Hours? .List Antibiotics to be Started? .Gram StainGram Stain No White Blood Cells No organisms seen Resp. CultureMixed normal respiratory hermelindo. No Haemophilus, Streptoc occus pneumoniae, beta-hemolytic Streptococcus or Staphylococcus aureus isolated. 22-Hdl-770309:06 HgA1C , Office (95631) HgA1C , Office 8.2 % (Abnormal) Range: 4.6 - 7.1 :06 Blood Glucose , Office (19671) Blood Glucose , Office 168 (Normal) 77-Eik-029319:00 Culture, Fungus 8482 Comments: [facility] [address] [place], [id number] CUF See Note Comments: PER ORDER, SPUTUM SMEAR/CULTURE FUNGAS Cu,Dzdkin1192 TESTING PERFORMED AT [facility]. ORIGINAL REPORT ON FILE IN LAB CONTAINS NEO TIONAL TEST (Normal) SITE INFORMATION. CUF Positive Fungus Culture ORGANISM 1: Yana albicansAmount Growth Growth 36-Bhl-116303:00 Culture, Sputum Comments: [facility] Shuxpmgyhi0393 [facility] [place], [address] CUSP See Note (Normal) Comments: PER ORDER, SPUTUM SMEAR/CULTURE FUNGAS Gram StainAcceptable Specimen? Yes (<25 Epithelial cells per/lpf) Gram Stain 1+ White Blood Cells 1+ Epithelial cells 1+ Gram positive cocci Resp. CultureMixed normal respiratory hermelindo. No Haemophilus, Streptococcus pneumoniae, beta-hemolytic Streptococcus or Staphylococcus aureus isolated. 07-Cjv-812139:49 BNP,B-Type NATRIURETIC PEPTIDE Comments: [facility] Xqgglhhegj6680 [facility] [place], [address] B-TYPE EB PEP 41.7 pg/mL (Normal) Range: 0-100 72-Apf-517083:30 Rapid Flu (75725 x 2) Influenza A Ag neg (Normal) 0-Fyv-786817:14 Bedside Glucose Comments: [facility] LaboratoryPoint of Xlkt5845 [facility] [place] [address] BEDSIDE GLU 151 mg/dL (Abnormal) Range: 70-110 Comments: MANAGEMENT OF PATIENT CARE PER NURSING PROTOCOL 07-Dec-20170:00 Culture, Bronch Aveolar Lavage Comments: [facility] Rjqq[address]ht[address] [place], [address] CUBRL See Note (Normal) Comments: [...] $ <=20 S(NF) indicates non-formulary drug at [facility]. Approval by Infectious Disease Specialist required before non-formulary drugs may be ordered and/or dispensed. 8-Wto-208003:27 CBC-Complete Blood Cnt No Diff Comments: [facility] [address] [place], [address] MPV 10.0 fL (Normal) Range: 6.2-12.0 PLT [...] 4.2-5.4 WBC 14.0 K/mm3 (Abnormal) Range: 4.4-11.0 0-Jgq-779237:27 Hemoglobin A1c Comments: [facility] [address] [place], [address] HGB A1C 7.9 % (Abnormal) Range: 4.2-6.3 9-Uba-975253:27 Magnesium Comments: [facility] [address] [place], [address] MG 1.9 mg/dL (Normal) Range: 1.8-2.4 6-Cyg-380659:27 Microalb:Creat Ratio,Random UR Comments: [facility] [address] [place], [address] MALB:CREAT 12.0 {mg/g_CRE} (Normal) MICROALBUMIN,UR 11.1 mg/L (Normal) UR CREAT 92.40 mg/dL (Normal) 0-Bgt-303481:27 PTHIN 83.3 pg/mL (Abnormal) Comments: [facility] [address] [place], [id number] Range: 18.4-80.1 Comments: Please Note: PTH INTACT METHOD AND REFERENCE RANGE CHANGEEffective 11/18/2017. 3-Cys-070705:27 Renal Profile Comments: [facility] [address] [place], [address] CO2 24.0 mmol/L (Normal) Range: 21.0-32.0 CL [...] 200 mg/dLsuggests DIABETES MELLITUS per A.D.A. criteria. 6-Mek-647476:27 Uric Acid Comments: [facility] [address] [place], [id number] URIC 9.0 mg/dL (Abnormal) Range: 2.6-6.0 Comments: The drugs N-Acetylcysteine and Metamizole may falselydepress this assay. 1-Wai-470287:27 Vitamin D,25 Hydroxy Comments: [facility] [address] [place], [address] Vitamin D 25-OH 34.1 ng/mL (Normal) Comments: Vitamin D 25(OH) Status Range Deficiency <20 ng/mL (50nmol/L) Insuffciency 20 - 30 ng/mL (50 - 75 nmol/L) Sufficiency 30 - 100 ng/mL (75 - 250 nmol/L) Toxicity >100 ng/mL (>250 nmol/L) 42-Ebs-67457:22 THROAT CULTURE (83120) Comments: PATIENT NOT FASTINGPERFORMED BY: [facility] Cskqzy0082 [facility] [id number] Information: SRC:TH Result 1 RRF (Normal) Comments: Routine respiratory hermelindo Upper Respiratory Culture Final report (Normal) 47-Osz-869421:09 Rapid Flu (69685 x 2) Comments: Negative Influenza A Ag negative (Normal) 02-Jna-679465:09 Rapid Strep Test, Office (07832) Comments: Negative Rapid Strep Test, Office Negative (Normal) 39-Khg-487612:52 Microscopic Examination Comments: PATIENT WAS FASTINGPERFORMED BY: [facility] Mhbwvk0467 [facility] [id number] Bacteria None seen (Normal) Mucus Threads Present (Normal) Epithelial Cells (non renal) 0-10 {/hpf} (Normal) Range: 0 - 10 RBC 0-2 {/hpf} (Normal) Range: 0 - 2 WBC 0-5 {/hpf} (Normal) Range: 0 - 5 90-Fnb-336928:08 Magnesium Comments: [facility] [address] [place], [address] MG 1.9 mg/dL (Normal) Range: 1.8-2.4 69-Exy-974234:08 Microalb:Creat Ratio,Random UR Comments: [facility] [address] [place], [address] MALB:CREAT 8.5 {mg/g_CRE} (Normal) MICROALBUMIN,UR 5.2 mg/L (Normal) UR CREAT 61.10 mg/dL (Normal) 91-Tnv-015520:08 PTH,INTACT Comments: [facility] [address] [place], [address] PTH,Intact 40 pg/mL (Normal) Range: 14-72 :08 Renal Profile Comments: [facility] [address] [place], [address] CO2 23.0 mmol/L (Normal) Range: 21.0-32.0 CL [...] per A.D.A. criteria. :08 Uric Acid Comments: [facility] [address] [place], [address] URIC 8.0 mg/dL (Abnormal) Range: 2.6-6.0 Comments: The drugs N-Acetylcysteine and Metamizole may falselydepress this assay. :08 Vitamin D,25 Hydroxy Comments: [facility] [address] [place], [address] Vitamin D 25-OH 27.6 ng/mL (Normal) Comments: Vitamin D 25(OH) Status Range Deficiency <20 ng/mL (50nmol/L) Insuffciency 20 - 30 ng/mL (50 - 75 nmol/L) Sufficiency 30 - 100 ng/mL (75 - 250 nmol/L) Toxicity >100 ng/mL (>250 nmol/L) :52 URINALYSIS, W/ MICRO (06145) Comments: PATIENT WAS FASTINGPERFORMED BY: [employer] [place] [id number] Microscopic Examination See below: (Normal) Comments: Microscopic was indicated and was performed. Nitrite, Urine Negative (Normal) Urobilinogen,Semi-Qn 0.2 mg/dL (Normal) Range: 0.2-1.0 Bilirubin Negative (Normal) Occult Blood Negative (Normal) Ketones Negative (Normal) Glucose 1+ (Abnormal) Protein Negative (Normal) WBC Esterase 1+ (Abnormal) Appearance Clear (Normal) Urine-Color Yellow (Normal) pH 6.5 (Normal) Range: 5.0-7.5 Specific Tyler 1.023 (Normal) Range: 1.005-1.030 :52 MICROALBUMIN: CREATININE RATIO Comments: PATIENT WAS FASTINGPERFORMED BY: [facility] [id number] (68327) AND (33839) Microalb/Creat Ratio 7.6 {mg/g_creat} (Normal) Range: 0.0-30.0 Microalbumin, Urine 6.8 ug/mL (Normal) Creatinine, Urine 89.4 mg/dL (Normal) 51-Cvk-494175:52 METABOLIC PANEL, COMPREHENSIVE Comments: PATIENT WAS FASTINGPERFORMED BY: [employer]6370 [facility] [id number] (14216) ALT (SGPT) 22 [iU]/L (Normal) Range: 0-32 [...] Glucose, Serum 99 mg/dL (Normal) Range: 65-99 47-Ldo-619850:52 CBC W/AUTO DIFF WBC (30958) Comments: PATIENT WAS FASTINGPERFORMED BY: EquidamSaint Barnabas Behavioral Health CenterFihbdp5977 [facility] [id number] Immature Grans (Abs) 0.0 {x10E3/uL} (Normal) Range: [...] 3.77-5.28 WBC 13.0 {x10E3/uL} (Abnormal) Range: 3.4-10.8 81-Flv-573110:52 LIPID PANEL (79128) Comments: PATIENT WAS FASTINGPERFORMED BY: [employer] Gplmiy4032 [facility] [id number] LDL/HDL Ratio 1.8 {ratio_units} (Normal) Range: 0.0-3.2 [...] 158 mg/dL (Normal) Range: 100-199 :52 TSH (77622) Comments: PATIENT WAS FASTINGPERFORMED BY: Avidialin6370 [facility] [id number] TSH 1.390 {uIU/mL} (Normal) Range: 0.450-4.500 :52 CALCIFEDIOL (61069) Comments: PATIENT WAS FASTINGPERFORMED BY: [employer] Farm SystemsMissouri [facility] Hospital-SullivanZprcet5135 [facility] [id number] Vitamin D, 25-Hydroxy 38.5 ng/mL (Normal) Range: 30.0-100.0 Comments: Vitamin D deficiency has been defined by the [place] of[place]icine and an Endocrine Society practice guideline as alevel of serum 25-OH vitamin D less than 20 ng/mL (1,2).The Endocrine Society went on to further define vitamin Dinsufficiency as a level between 21 and 29 ng/mL (2).1. IOM ([place] of Medicine). 2010. Dietary reference intakes for calcium and D. [place]: The National Academies Press.2. Stephon MF, Ana ROY, Alka ROMERO, et al. Evaluation, treatment, and prevention of vitamin D deficiency: an Endocrine Society clinical practice guideline. JCEM. 2010; 96(7):1911-30. :32 HgA1C , Office (39917) HgA1C , Office 8.1 % (Abnormal) Range: 4.6 - 7.1 :32 Blood Glucose , Office (87844) Blood Glucose , Office 122 (Normal) :37 Immature Cells Comments: PATIENT WAS FASTINGPERFORMED BY: [facility]ero Farm SystemsVeterans Affairs Medical Center6370 [facility] [id number] Myelocytes 1 % (Abnormal) Range: 0 - 0 Metamyelocytes 3 % (Abnormal) Range: 0 - 0 :16 PHOSPHORUS (60160) Comments: PATIENT WAS FASTINGPERFORMED BY: [facility] Farm SystemsMissouri Baptist Hospital-SullivanMqgdkh7672 [facility] [id number] Phosphorus, Serum 2.8 mg/dL (Normal) Range: 2.5-4.5 :16 MAGNESIUM (15427) Comments: PATIENT WAS FASTINGPERFORMED BY: [facility] Farm SystemsMiss[facility] Hospital-SullivanZqdkrd2311 [facility] [id number] Magnesium, Serum 1.8 mg/dL (Normal) Range: 1.6-2.3 :16 METABOLIC PANEL, COMPREHENSIVE Comments: PATIENT WAS FASTINGPERFORMED BY: PRATIMA LabCoSaint Barnabas Behavioral Health CenterEaflvf9764 [facility] [id number] (82663) ALT (SGPT) 29 [iU]/L (Normal) Range: 0-32 [...] DIR SMEAR Comments: PATIENT NOT FASTINGPERFORMED BY: LabCoSaint Barnabas Behavioral Health CenterYyrqdk0293 [facility] [id number] (28568) Result 1 NOCP (Normal) Comments: No ova, cysts, or parasites seen. Ova + Parasite Exam Final report (Normal) Comments: These results were obtained using wet preparation(s) and trichromestained smear. This test does not include testing for Cryptosporidiumparvum, Cyclospora, or Microsporidia. :34 OCCULT BLOOD FECES SCREEN Comments: PATIENT NOT FASTINGPERFORMED BY: [employer] Aqrfbj68[address] [facility] [id number] (94212) Occult Blood, Fecal, IA Negative (Normal) :34 LEUKOCYTE COUNT, FECAL (30711) Comments: PATIENT NOT FASTINGPERFORMED BY: [employer] Ylukpo0396 [facility] [id number] Result 1 NWBC (Normal) Comments: No white blood cells seen. White Blood Cells (WBC), Final report (Normal) Stool :34 C-DIFFICILE, STOOL (11619) Comments: PATIENT NOT FASTINGPERFORMED BY: [employer] Ycgbua4221 [facility] [id number] C difficile Toxins A+B, EIA Negative (Normal) :34 ALFONZO CULTURE-STOOL (04695) Comments: PATIENT NOT FASTINGPERFORMED BY: [facility] Farm SystemsSaint [facility] Hospital Tmnehf9227 [facility] [id number] Information: SRC:ST SRC:ST E coli Shiga Toxin EIA Negative (Normal) Result 1 NCI (Normal) Comments: No Campylobacter species isolated. Campylobacter Culture Final report (Normal) Result 1 NSS (Normal) Comments: No Salmonella or Shigella recovered. Salmonella/Shigella Screen Final report (Normal) 95-Omp-447546:56 Metabolic Panel, Comprehensive Comments: PATIENT NOT FASTINGPERFORMED BY: [employer] Cidzri4443 [facility] [id number] (43795) ALT (SGPT) 26 [iU]/L (Normal) Range: 0-32 [...] Glucose, Serum 147 mg/dL (Abnormal) Range: 65-99 41-Kod-875662:56 CBC, Platelets & Auto Diff Comments: PATIENT NOT FASTINGPERFORMED BY: [facility] Wmpkhl1779 [facility] [id number] (17237) Immature Grans (Abs) 0.1 {x10E3/uL} (Normal) Range: [...] (Normal) Range: 3.4-10.8 :37 URIC ACID BLOOD (96613) Comments: PATIENT WAS FASTINGPERFORMED BY: EquidamSaint Barnabas Behavioral Health CenterHmpopd2171 [facility] [id number] Uric Acid, Serum 9.1 mg/dL (Abnormal) Range: 2.5-7.1 Comments: Therapeutic target for gout patients: <6.0 :10 METABOLIC PANEL, COMPREHENSIVE (28984) :37 CBC W/AUTO DIFF WBC (96170) Comments: PATIENT WAS FASTINGPERFORMED BY: EquidamSaint Barnabas Behavioral Health CenterEexfal5896 [facility] [id number] Hematology Comments: Note: (Normal) Comments: Manual differential [...] 3.77-5.28 WBC 9.4 {x10E3/uL} (Normal) Range: 3.4-10.8 73-Fgy-747631:58 Magnesium Comments: [facility] Yyvpswsopz7927 [place], [address] MG 2.0 mg/dL (Normal) Range: 1.8-2.4 Comments: Slight Hemolysis, Result may be falsely increased. 14-Opi-060796:58 Renal Profile Comments: [facility] [address] [place], [address] CO2 27.0 mmol/L (Normal) Range: 21.0-32.0 CL [...] per A.D.A. criteria. :45 URIC ACID BLOOD (81955) Comments: PATIENT NOT FASTINGPERFORMED BY: [facility]At[facility] [id number] Uric Acid, Serum 9.6 mg/dL (Abnormal) Range: 2.5-7.1 Comments: Therapeutic target for gout patients: <6.0 :45 RENAL FUNCTION PANEL (04530) Comments: PATIENT NOT FASTINGPERFORMED BY: [facility]At[facility] [id number] Albumin, Serum 4.5 g/dL (Normal) Range: 3.6-4.8 [...] 214 mg/dL (Abnormal) Range: 65-99 :24 CALCIFIDIOL (05342) VIT D 25 Comments: PATIENT WAS FASTINGPERFORMED BY: [employer]70 [facility] [id number] Vitamin D, 25-Hydroxy 44.9 ng/mL (Normal) Range: 30.0-100.0 Comments: Vitamin D deficiency has been defined by the [place] of[place]icine and an Endocrine Society practice guideline as alevel of serum 25-OH vitamin D less than 20 ng/mL (1,2).The Endocrine Society went on to further define vitamin Dinsufficiency as a level between 21 and 29 ng/mL (2).1. IOM ([place] of [place]). 2010. Dietary reference intakes for calcium and D. [place]: The National Academies Press.2. Stephon MF, Ana ROY, Alka ROMERO, et al. Evaluation, treatment, and prevention of vitamin D deficiency: an Endocrine Society clinical practice guideline. JCEM. 2010; 96(7):1911-30. :39 HgA1C , Office (74485) HgA1C , Office 7.6 % (Abnormal) Range: 4.6 - 7.1 :39 Blood Glucose , Office (98602) Blood Glucose , Office 174 (Normal) :56 TSH (55838) Comments: PATIENT WAS FASTINGPERFORMED BY: [facility] Ndjxuh1224 [facility] [id number] TSH 2.180 {uIU/mL} (Normal) Range: 0.450-4.500 :56 LIPID PANEL (17179) Comments: PATIENT WAS FASTINGPERFORMED BY: [facility] Gxocue8536 [facility] [id number] LDL/HDL Ratio 1.8 {ratio_units} (Normal) Range: 0.0-3.2 Comments: LDL/HDL Ratio Men Women 1/2 Avg.Risk 1.0 1.5 Av g.Risk 3.6 3.2 2X Avg.Risk 6.2 5.0 3X Avg.Risk 8.0 6.1 LDL Cholesterol Calc 62 mg/dL (Normal) Range: 0-99 VLDL Cholesterol Yamilka 45 mg/dL (Abnormal) Range: 5-40 HDL Cholesterol 35 mg/dL (Abnormal) Triglycerides 226 mg/dL (Abnormal) Range: 0-149 Cholesterol, Total 142 mg/dL (Normal) Range: 100-199 7-Gwv-313229:36 CBC W/Diff, Automated Comments: [facility] [address] [place], [place], [address] Absolute Lymph 1.31 {X10_3/ul} (Normal) Range: 0.83-4.51 [...] 4.2-5.4 WBC 10.5 K/mm3 (Normal) Range: 4.4-11.0 8-Ttq-099245:36 Magnesium Comments: [facility] X[address] [facility] [address] [place], [place], [address] MG 1.9 mg/dL (Normal) Range: 1.8-2.4 7-Rkm-399884:36 Protein+Creatinine Ratio,Urine Comments: [facility] Il[address] [facility] [address] [place], [place], [address] PROT:CRE RATIO 120 {mg/g_CRE} (Normal) Range: 0-200 PROTEIN,UR.RAN. 13.6 mg/dL (Abnormal) UR CREAT 113.00 mg/dL (Normal) 1-Eqb-831401:36 PTH,INTACT Comments: [facility] [address] [place], [address] PTH,Intact 27 pg/mL (Normal) Range: 14-72 1-Uja-862206:36 Renal Profile Comments: [facility] [address]opf[address] [place], [address] CO2 27.0 mmol/L (Normal) Range: 21.0-32.0 CL [...] per A.D.A. criteria. :36 Uric Acid Comments: [facility] [address] [place], [address] URIC 7.5 mg/dL (Abnormal) Range: 2.6-6.0 Comments: The drugs N-Acetylcysteine and Metamizole may falsely deressthis assay. 3-Rio-847301:36 Vitamin D,25 Hydroxy Comments: [facility] [address] [place], [address] Vitamin D 25-OH 33.9 ng/mL (Normal) Comments: Vitamin D 25(OH) Status Range Deficiency <20 ng/mL (50nmol/L) Insuffciency 20 - 30 ng/mL (50 - 75 nmol/L) Sufficiency 30 - 100 ng/mL (75 - 250 nmol/L) Toxicity >100 ng/mL (>250 nmol/L) :24 Renal Profile Comments: [facility] [address] [place], [place], [address] CO2 24.0 mmol/L (Normal) Range: 21.0-32.0 CL [...] Immature Cells Comments: PATIENT WAS FASTINGPERFORMED BY: [employer] Lowakf3190 [facility]rapeuticsAt[facility] [id number] Myelocytes 4 % (Abnormal) Range: 0 - 0 :46 Microscopic Examination Comments: PATIENT WAS FASTINGPERFORMED BY: [employer] Llsxaa7960 [facility] [id number] Bacteria Few (Normal) Mucus Threads Present (Normal) Crystal Type Calcium Oxalate (Normal) Crystals Present (Abnormal) Epithelial Cells (non renal) 0-10 {/hpf} (Normal) Range: 0 - 10 RBC 3-10 {/hpf} (Abnormal) Range: 0 - 2 WBC 11-30 {/hpf} (Abnormal) Range: 0 - 5 :47 Sputum Culture (37647) Comments: PATIENT NOT FASTINGPERFORMED BY: [facility]At[facility] [id number] Information: SRC:SP Result 1 RRF (Normal) Comments: Routine respiratory hermelindo Lower Respiratory Culture Final report (Normal) :46 CALCIFEDIOL (03518) Comments: PATIENT WAS FASTINGPERFORMED BY: [employer]6370 [facility]rapeuticsAt[facility] [id number] Vitamin D, 25-Hydroxy 32.4 ng/mL (Normal) Range: 30.0-100.0 Comments: Vitamin D deficiency has been defined by the [place] of[place]icine and an Endocrine Society practice guideline as alevel of serum 25-OH vitamin D less than 20 ng/mL (1,2).The Endocrine Society went on to further define vitamin Dinsufficiency as a level between 21 and 29 ng/mL (2).1. IOM ([place] of [place]). 2010. Dietary reference intakes for calcium and D. [place]: The National Academies Press.2. Stephon MF, Ana [place], [place] ROMERO, et al. Evaluation, treatment, and prevention of vitamin D deficiency: an Endocrine Society clinical practice guideline. JCEM. 2010; 96(7):1911-30. :46 Metabolic Panel, Comprehensive Comments: PATIENT WAS FASTINGPERFORMED BY: [employer] Pzgjbs9805 [facility]rapeuticsAt[facility] [id number] (45856) ALT (SGPT) 19 [iU]/L (Normal) Range: 0-32 [...] Glucose, Serum 126 mg/dL (Abnormal) Range: 65-99 06-Hcp-00983:46 CBC WITH MANUAL DIFF Comments: PATIENT WAS FASTINGPERFORMED BY: [facility]6370 [facility] [id number] Information: [id number] (93246) Hematology Comments: Note: (Normal) Comments: Manual differential [...] 14.0 {x10E3/uL} (Abnormal) Range: 3.4-10.8 :46 URINALYSIS (44819) Comments: PATIENT WAS FASTINGPERFORMED BY: [facility]At[facility] [id number] Microscopic Examination See below: (Normal) Comments: Microscopic was indicated and was performed. Nitrite, Urine Negative (Normal) Urobilinogen,Semi-Qn 0.2 mg/dL (Normal) Range: 0.2-1.0 Bilirubin Negative (Normal) Occult Blood Negative (Normal) Ketones Negative (Normal) Glucose 2+ (Abnormal) Protein Negative (Normal) WBC Esterase 3+ (Abnormal) Appearance Clear (Normal) Urine-Color Yellow (Normal) pH 6.5 (Normal) Range: 5.0-7.5 Specific Tyler 1.022 (Normal) Range: 1.005-1.030 :46 MICROALBUMIN: CREATININE RATIO Comments: PATIENT WAS FASTINGPERFORMED BY: [employer] Hoysij[address] [facility] [id number] (92936) AND (99180) Microalb/Creat Ratio 10.1 {mg/g_creat} (Normal) Range: 0.0-30.0 Microalbumin, Urine 7.3 ug/mL (Normal) Creatinine, Urine 72.6 mg/dL (Normal) :46 TSH (07853) Comments: PATIENT WAS FASTINGPERFORMED BY: Sold [facility] [id number] TSH 2.600 {uIU/mL} (Normal) Range: 0.450-4.500 :46 Lipid Panel (47740) Comments: PATIENT WAS FASTINGPERFORMED BY: [facility] Hnizzs0719 [facility] [id number]; has appt 08/20, will review at that [...] (Normal) Range: 100-199 :49 HgA1C , Office (80881) HgA1C , Office 6.6 % (Normal) Range: 4.6 - 7.1 :49 Blood Glucose , Office (58517) Blood Glucose , Office 113 (Normal) :10 CBC W/Diff, Automated Comments: [facility] [address] [place], [place], [address] Absolute Lymph 1.40 {X10_3/ul} (Normal) Range: 0.83-4.51 [...] (Normal) Range: 4.4-11.0 :10 Magnesium Comments: Comments: [facility] [address] [place], [address] MG 1.9 mg/dL (Normal) Range: 1.8-2.4 :10 Protein+Creatinine Ratio,Urine Comments: [facility] [address] [place], [address] PROT:CRE RATIO 112 {mg/g_CRE} (Normal) Range: 0-200 PROTEIN,UR.RAN. 8.1 mg/dL (Normal) UR CREAT 72.10 mg/dL (Normal) :10 PTH,INTACT Comments: [facility] [address] [place], [place], [address] PTH,Intact 29 pg/mL (Normal) Range: 14-72 96-Edg-751475:10 Renal Profile Comments: Comments: [facility] [address] [place], [place], [address] CO2 25.0 mmol/L (Normal) Range: 21.0-32.0 CL [...] A.D.A. criteria. :10 Uric Acid Comments: Comments: [facility] [address]jfb[address] [place], [place], [address] URIC 7.1 mg/dL (Abnormal) Range: 2.6-6.0 Comments: The drugs N-Acetylcysteine and Metamizole may falsely deressthis assay. :10 Vitamin D,25 Hydroxy Comments: [facility] [address]zybhkmrir[address] [place], [place], [address] Vitamin D 25-OH 35.5 ng/mL (Normal) Comments: Vitamin D 25(OH) Status Range Deficiency <20 ng/mL (50nmol/L) Insuffciency 20 - 30 ng/mL (50 - 75 nmol/L) Sufficiency 30 - 100 ng/mL (75 - 250 nmol/L) Toxicity >100 ng/mL (>250 nmol/L) :10 CALCIUM SERUM (12731) Comments: PATIENT NOT FASTINGPERFORMED BY: LabCoSaint Barnabas Behavioral Health CenterDgkspq7216 [facility] [id number] Information: [id number] Calcium, Serum 10.3 mg/dL (Normal) Range: 8.7-10.3 78-Srp-823992:10 MAGNESIUM (90088) Comments: PATIENT NOT FASTINGPERFORMED BY: [place] 8563870 [facility] [id number] Magnesium, Serum 2.1 mg/dL (Normal) Range: 1.6-2.3 8-Bsd-497818:14 Bedside Glucose Comments: [facility] LaboratoryPoint of Entz[address] [place] [address] BEDSIDE GLU 110 mg/dL (Normal) Range: 70-110 Comments: MANAGEMENT OF PATIENT CARE PER NURSING PROTOCOL 93-Fer-100269:26 Metabolic Panel, Basic Comments: PATIENT NOT FASTINGPERFORMED BY: [place] 8563870 [facility] [id number] Information: [id number]; will review on 06/04 (33301) Calcium, Serum 10.0 mg/dL (Normal) Range: 8.7-10.3 [...] Glucose, Serum 104 mg/dL (Abnormal) Range: 65-99 08-Gdn-097466:39 Magnesium Comments: ORDERED CA AND PTHINDRLUDA ORDERED CBC PTHIN RENAL VITD CRE/PROURIC [facility] [address] [place], [address](847) MG 2.0 mg/dL (Normal) Range: 1.8-2.4 :39 Protein+Creatinine Ratio,Urine Comments: [facility] [address] [place], [place], [address] PROT:CRE RATIO 188 {mg/g_CRE} (Normal) Range: 0-200 PROTEIN,UR.RAN. < 6.0 mg/dL (Normal) UR CREAT 29.80 mg/dL (Normal) :39 PTH,INTACT Comments: [facility] [address] [place], [place], [id number] PTH,Intact 53 pg/mL (Normal) Range: 14-72 :39 Renal Profile Comments: ORDERED CA AND PTHINDR.LUZ ORDERED CBC PTHIN RENAL VITD CRE/PROURIC [facility] [address] [place], [place], [id number] CO2 22.0 mmol/L (Normal) Range: 21.0-32.0 CL [...] PTHINDR.LUZ ORDERED CBC PTHIN RENAL VITD CRE/PROURIC [facility] [address] [place], [id number] URIC 7.3 mg/dL (Abnormal) Range: 2.6-6.0 Comments: The drugs N-Acetylcysteine and Metamizole may falsely deressthis assay. :39 Vitamin D,25 Hydroxy Comments: [facility] [address] [place], [id number] Vitamin D 25-OH 52.3 ng/mL (Normal) Comments: Vitamin D 25(OH) Status Range Deficiency <20 ng/mL (50nmol/L) Insuffciency 20 - 30 ng/mL (50 - 75 nmol/L) Sufficiency 30 - 100 ng/mL (75 - 250 nmol/L) Toxicity >100 ng/mL (>250 nmol/L) :09 URINE CALCIUM KAITLIN TIMED Comments: PATIENT NOT FASTINGPERFORMED BY: [facility] Zhsqzg5070 [facility] [id number] Information: [id number] 2500ML START @6AM FINISH 05/05/16@ 6AM (73025) Calcium, Urine 24hr 45.0 {mg/24_hr} (Abnormal) Range: 100.0-300.0 Calcium, Urine 1.8 mg/dL (Normal) 02-May-20169:30 Fecal Occult Blood , Office (33127) Fecal Occult Blood , Office (Inhouse) negative (Normal) 39-Lzp-170620:23 Crystals, Body Fluid Comments: [facility] [address] [place], [id number] PATH REV Reviewed (Normal) Comments: Negative for malignant cells.Mixture of calcium pyrophosphate (pseudogout) crystals andnondescript crystals are noted.Johnson Castro M.D. 04/29/16 SOURCE/BF SYNOVIAL (Normal) CRYSTALS/BF SEE PATH REV (Normal) 26-Ady-715961:23 Culture, Body Fluid Comments: [facility] [address] [place], [place], [address] CUBF See Note (Normal) Comments: List Antibiotics [...] :23 Synovial Fluid RBC, WBC AND Comments: [facility] Naxjomhwag7413 [facility] Al. [place], [place], [address] Diff PATH COM/SYFL March (Normal) OTHER CELL [...] COLOR Yellow (Normal) VISCOSITY/SYFL Sl. Viscous (Normal) 1-Ekm-247992:58 CALCIUM SERUM (29233) Comments: PATIENT NOT FASTINGPERFORMED BY: [employer] [place] [id number] Information: [id number] Calcium, Serum 10.6 mg/dL (Abnormal) Range: 8.7-10.3 30-Ptx-84529:10 Microscopic Examination Comments: PATIENT WAS FASTINGPERFORMED BY: FamilyFinds70 [facility]At[facility] [id number] Bacteria None seen (Normal) Mucus Threads Present (Normal) Epithelial Cells (non renal) 0-10 {/hpf} (Normal) Range: 0 - 10 RBC None seen {/hpf} (Normal) Range: 0 - 2 WBC 0-5 {/hpf} (Normal) Range: 0 - 5 :10 CALCIFIDIOL (23348) VIT D 25 Comments: PATIENT WAS FASTINGPERFORMED BY: [place]Spot[place] [id number] Vitamin D, 25-Hydroxy 63.0 ng/mL (Normal) Range: 30.0-100.0 Comments: Vitamin D deficiency has been defined by the [place] of[place]icine and an Endocrine Society practice guideline as alevel of serum 25-OH vitamin D less than 20 ng/mL (1,2).The Endocrine Society went on to further define vitamin Dinsufficiency as a level between 21 and 29 ng/mL (2).1. IOM ([place] of Medicine). 2010. Dietary reference intakes for calcium and D. [place]: The National Academies Press.2. Stephon MF, Ana ROY, Alka ROMERO, et al. Evaluation, treatment, and prevention of vitamin D deficiency: an Endocrine Society clinical practice guideline. JCEM. 2010; 96(7):1911-30. :10 TSH (84241) Comments: PATIENT WAS FASTINGPERFORMED BY: [employer] [place] [id number] TSH 2.680 {uIU/mL} (Normal) Range: 0.450-4.500 :10 URINALYSIS, W/ MICRO (47218) Comments: PATIENT WAS FASTINGPERFORMED BY: [facility] [id number] Microscopic Examination See below: (Normal) Comments: Microscopic was indicated and was performed. Microscopic Examination MICRON (Normal) Comments: Microscopic follows if indicated. Nitrite, Urine Negative (Normal) Urobilinogen,Semi-Qn 0.2 mg/dL (Normal) Range: 0.2-1.0 Bilirubin Negative (Normal) Occult Blood Negative (Normal) Ketones Negative (Normal) Glucose 3+ (Abnormal) Protein Negative (Normal) WBC Esterase Negative (Normal) Appearance Clear (Normal) Urine-Color Yellow (Normal) pH 6.5 (Normal) Range: 5.0-7.5 Specific Tyler 1.022 (Normal) Range: 1.005-1.030 :10 MICROALBUMIN: CREATININE RATIO Comments: PATIENT WAS FASTINGPERFORMED BY: [employer] [place] [id number] (28283) AND (87074) Microalb/Creat Ratio 20.5 {mg/g_creat} (Normal) Range: 0.0-30.0 Microalbumin, Urine 20.1 ug/mL (Normal) Comments: Please note reference interval change Creatinine, Urine 97.9 mg/dL (Normal) Comments: Please note reference interval change :10 LIPID PANEL (53831) Comments: PATIENT WAS FASTINGPERFORMED BY: Avidialin6370 [facility] [id number] LDL/HDL Ratio 2.0 {ratio_units} (Normal) Range: 0.0-3.2 [...] PANEL, COMPREHENSIVE Comments: PATIENT WAS FASTINGPERFORMED BY: Avidialin6370 [facility] [id number]; will review on 04.18 (64228) ALT (SGPT) 18 [iU]/L (Normal) Range: 0-32 [...] Glucose, Serum 143 mg/dL (Abnormal) Range: 65-99 82-Wko-13502:10 CBC W/AUTO DIFF WBC Comments: PATIENT WAS FASTINGPERFORMED BY: LabV[facility] Center6370 [facility] [id number] Information: [id number] (63660) Immature Grans (Abs) 0.0 {x10E3/uL} (Normal) Range: [...] 3.77-5.28 WBC 7.8 {x10E3/uL} (Normal) Range: 3.4-10.8 51-Vfl-070646:02 HgA1C , Office (22184) HgA1C , Office 6.6 % (Normal) Range: 4.6 - 7.1 :02 Blood Glucose , Office (76640) Blood Glucose , Office 142 (Normal) 47-Mcw-262055:20 NuSwab Vaginitis Plus Comments: PATIENT NOT FASTINGPERFORMED BY: [address] [id number] Information: [id number] (STD W/O Herpes) (55111) Neisseria gonorrhoeae, YAIR Negative (Normal) Chlamydia trachomatis, YAIR Negative (Normal) Trich vag by YAIR Negative (Normal) Yana glabrata, YAIR Negative (Normal) Comments: This test was developed and its performance characteristics determinedby [employer]. It has not been cleared or approved [...] was developed and its performance characteristics determinedby [employer]. It has not been cleared or appro tima by the Food and DrugAdministration. The FDA has determined that such clearance orapproval is not necessary. BVAB 2 Low - 0 {Score} (Normal) Atopobium vaginae Low - 0 {Score} (Normal) :56 Magnesium Comments: Test performed at:[facility] [address] [place] [address] MG 2.2 mg/dL (Normal) Range: 1.8-2.4 :56 Protein+Creatinine Ratio,Urine Comments: Test performed at:[facility] [address] [place] [address] PROT:CRE RATIO 440 {mg/g_CRE} (Abnormal) Range: 0-200 PROTEIN,UR.RAN. 8.1 mg/dL (Normal) UR CREAT 18.20 mg/dL (Normal) 35-Mnh-364209:56 Renal Profile Comments: Test performed at:[facility] Zqjzkslkss[address] [place] [address] CO2 28.0 mmol/L (Normal) Range: [...] Comments: Please note revised CREATININE reference range pzrtisjwy96/22/2015. BUN 44 mg/dL (Abnormal) Range: 7-18 GLU 186 mg/dL (Abnormal) Range: 70-110 Comments: Fasting Glucose result greater than or equal to 126 mg/dLsuggests DIABETES MELLITUS per A.D.A. criteria. :56 Uric Acid Comments: Test performed at:[facility] [address] [place] [address] URIC 6.5 mg/dL (Abnormal) Range: 2.6-6.0 25-Onn-108891:56 Vitamin D,25 Hydroxy Comments: Test performed at:[facility] Zdeouuonwq4384 [place] [address] Vitamin D 25-OH 67.0 ng/mL (Normal) Comments: Vitamin D 25(OH) Status Range Deficiency <20 ng/mL (50nmol/L) Insuffciency 20 - 30 ng/mL (50 - 75 nmol/L) Sufficiency 30 - 100 ng/mL (75 - 250 nmol/L) Toxicity >100 ng/mL (>250 nmol/L) 28-Wrx-510627:01 Rapid Strep Test, Office (40574) Rapid Strep Test, Office Negative (Normal) :21 HgA1C , Office (56869) HgA1C , Office 6.4 % (Normal) Range: 4.6 - 7.1 :21 Blood Glucose , Office (36083) Blood Glucose , Office 167 (Normal) :01 Microscopic Examination Comments: PATIENT WAS FASTINGPERFORMED BY: [facility]At[facility] [id number] Bacteria Few (Normal) Mucus Threads Present (Normal) Epithelial Cells (non renal) 0-10 {/hpf} (Normal) Range: 0 - 10 RBC 0-2 {/hpf} (Normal) Range: 0 - 2 WBC 6-10 {/hpf} (Abnormal) Range: 0 - 5 :50 Antinuclear Antibodies Direct Comments: PATIENT NOT FASTINGPERFORMED BY: [facility]At[facility] [id number] HEIDI Direct Negative (Normal) : C-Reactive Protein, 7.3 mg/L (Abnormal) Comments: PATIENT NOT FASTINGPERFORMED BY: [facility] [id number] 50 Quant Range: 0.0-4.9 :50 CBC, Platelet, No Differential Comments: PATIENT NOT FASTINGPERFORMED BY: [facility]At[facility] [id number] Platelets 253 {x10E3/uL} (Normal) Range: 150-379 RDW [...] Panel (14) Comments: PATIENT NOT FASTINGPERFORMED BY: LabCoSaint Barnabas Behavioral Health CenterPcyotu1326 [facility] [id number] Information: [id number] ALT (SGPT) 17 [iU]/L (Normal) Range: 0-32 [...] (Normal) Comments: PATIENT NOT FASTINGPERFORMED BY: PRATIMA [employer] Bomcfs5247 [facility] [place] [id number] 50 Serum Comments: A serum folate concentration of less than 3.1 ng/mL isconsidered to represent clinical deficiency. :50 Rheumatoid Arthritis Factor Comments: PATIENT NOT FASTINGPERFORMED BY: [facility] Cylejv4985 [facility] [place] [id number] RA Latex Turbid. 10.5 {IU/mL} Range: 0.0-13.9 (Normal) Sedimentation 7 mm/h (Normal) Comments: PATIENT NOT FASTINGPERFORMED BY: [facility] SystemsSaint [facility] Hospital Xbbfpm[address] [facility] Centerin [place] [id number] :50 Rate-Westergren Range: 0-40 TSH 2.450 {uIU/mL} Comments: PATIENT NOT FASTINGPERFORMED BY: [facility] SystemsSaint [facility] Huezyr8959 [facility] [place] [id number] :50 (Normal) Range: 0.450-4.500 Vitamin B12 1684 pg/mL Comments: PATIENT NOT FASTINGPERFORMED BY: [facility] SystemsSaint [facility] Dutbjo3311 Wu [facility] HospitalDublin [place] [id number] :50 (Abnormal) Range: 211-946 Vitamin D, 25-Hydroxy 75.1 ng/mL Comments: PATIENT NOT FASTINGPERFORMED BY: [facility] Systems[facility] Kasrfj6776 [facility] [place] [id number] :50 (Normal) Range: 30.0-100.0 Comments: Vitamin D deficiency has been defined by the [place] of[place]icine and an Endocrine Society practice guideline as alevel of serum 25-OH vitamin D less than 20 ng/mL (1,2).The Endocrine Society went on to further define vitamin Dinsufficiency as a level between 21 and 29 ng/mL (2).1. IOM ([place] of Medicine). 2010. Dietary reference intakes for calcium and D. [place]: The National Academies Press.2. Stephon MF, Ana NC, Alka ROMERO, et al. Evaluation, treatment, and prevention of vitamin D deficiency: an Endocrine Society clinical practice guideline. JCEM. 2010; 96(7):1911-30. 4-Omh-852863:57 Lower Respiratory Culture Comments: PATIENT NOT FASTINGPERFORMED BY: [employer] Gxzwra1937 [facility] TherapeuticsAt[facility] [id number] Information: SRC:[facility] [id number] Result 1 RRF (Normal) Comments: Routine respiratory hermelindo Lower Respiratory Culture Final report (Normal) :01 MICROALBUMIN: CREATININE RATIO Comments: PATIENT WAS FASTINGPERFORMED BY: [employer] Xcubjh3600 WuSAMHI HotelsFormer[facility] [id number] (67491) AND (60025) Microalb/Creat Ratio 22.8 {mg/g_creat} (Normal) Range: 0.0-30.0 Microalbumin, Urine 18.8 ug/mL (Abnormal) Range: 0.0-17.0 Creatinine, Urine 82.6 mg/dL (Normal) Range: 15.0-278.0 :01 URINALYSIS (63967) Comments: PATIENT WAS FASTINGPERFORMED BY: [employer] Qkgxkr8871 [facility] [id number] Microscopic Examination See below: (Normal) Comments: Microscopic was indicated and was performed. Nitrite, Urine Negative (Normal) Urobilinogen,Semi-Qn 0.2 mg/dL (Normal) Range: 0.0-1.9 Bilirubin Negative (Normal) Occult Blood Negative (Normal) Ketones Negative (Normal) Glucose 2+ (Abnormal) Protein Negative (Normal) WBC Esterase Trace (Abnormal) Appearance Clear (Normal) Urine-Color Yellow (Normal) pH 6.5 (Normal) Range: 5.0-7.5 Specific Tyler 1.020 (Normal) Range: 1.005-1.030 :01 Metabolic Panel, Comments: PATIENT WAS FASTINGPERFORMED BY: [employer] Luripd6416 [facility] [id number] Information: [id number], [id number] Comprehensive (90780) ALT (SGPT) 17 [iU]/L (Normal) Range: 0-32 [...] Glucose, Serum 110 mg/dL (Abnormal) Range: 65-99 48-Exg-92750:01 CALCIFEDIOL (43708) Comments: PATIENT WAS FASTINGPERFORMED BY: [facility] [id number] Vitamin D, 25-Hydroxy 101.0 ng/mL (Abnormal) Range: 30.0-100.0 Comments: Vitamin D deficiency has been defined by the [place] of[place]icine and an Endocrine Society practice guideline as alevel of serum 25-OH vitamin D less than 20 ng/mL (1,2).The Endocrine Society went on to further define vitamin Dinsufficiency as a level between 21 and 29 ng/mL (2).1. IOM ([place] of Medicine). 2010. Dietary reference intakes for calcium and D. [place]: The National Academies Press.2. Stephon HOLCOMB, Ana ROY, Alka ROMERO, et al. Evaluation, treatment, and prevention of vitamin D deficiency: an Endocrine Society clinical practice guideline. JCEM. 2010; 96(7):1911-30. :01 Lipid Panel (71775) Comments: PATIENT WAS FASTINGPERFORMED BY: [facility] Ccgzev6316 [facility] [id number] LDL/HDL Ratio 1.4 {ratio_units} (Normal) Range: 0.0-3.2 [...] (Normal) Range: 100-199 :06 HgA1C , Office (33457) HgA1C , Office 6.4 % (Normal) Range: 4.6 - 7.1 :06 Blood Glucose , Office (02031) Blood Glucose , Office 168 (Normal) :43 CBC W/Diff, Automated Comments: Test performed at:[facility] [address] [place], [place] [id number] Absolute Lymph 1.33 {X10_3/ul} (Normal) Range: 0.83-4.51 [...] Range: 4.4-11.0 :43 Magnesium Comments: Test performed at:[facility] Q[address]ks[address] [place] [address] MG 1.6 mg/dL (Abnormal) Range: 1.8-2.4 :43 Protein+Creatinine Ratio,Urine Comments: Test performed at:[facility] V[address]qcrngsf[address] [place] [address]60[address] PROT:CRE RATIO 143 {mg/g_CRE} (Normal) Range: 0-200 PROTEIN,UR.RAN. 16.0 mg/dL (Abnormal) UR CREAT 111.6 mg/dL (Normal) :43 Renal Profile Comments: Test performed at:[facility] Hiigz[address] [place] [address] CO2 29.0 mmol/L (Normal) Range: 21.0-32.0 CL [...] criteria. :43 Uric Acid Comments: Test performed at:[facility] N[address] [place] [address] URIC 7.5 mg/dL (Abnormal) Range: 2.6-6.0 :43 Vitamin D,25 Hydroxy Comments: Test performed at:[facility] Ryavukgpxc[address] [place] [address] Vitamin D 25-OH 48.0 ng/mL (Normal) Comments: Vitamin D 25(OH) Status Range Deficiency <20 ng/mL (50nmol/L) Insuffciency 20 - 30 ng/mL (50 - 75 nmol/L) Sufficiency 30 - 100 ng/mL (75 - 250 nmol/L) Toxicity >100 ng/mL (>250 nmol/L) :16 HgA1C , Office (90198) HgA1C , Office 5.6 % (Normal) Range: 4.6 - 7.1 :16 Blood Glucose , Office (34634) Blood Glucose , Office 113 (Normal) :35 CALCIUM SERUM (71445) Comments: PATIENT NOT FASTINGPERFORMED BY: [facility] Nmcibg8161 [facility] [id number] Information: [id number] Calcium, Serum 10.0 mg/dL (Normal) Range: 8.6-10.2 :55 HEIDI Negative (Normal) Comments: Performed at: - [facility] [id number] Director: Taurus Morrissey MD, Phone: [phone] :55 CBCD ALC 1.15 {X10_3/ul} (Normal) Range: [...] ttHEBSAG Negative (Normal) Comments: Performed at: - [facility] [id number] Director: Taurus Morrissey MD, Phone: [phone] at: [facility] Lab[address], [place] [address] 1Lab Director: Juan Carlos Mathew MD, Phone: [phone] :55 HECAB tHECAB 0.1 {s/co_ratio} (Normal) Range: 0.0-0.9 Comments: Negative: < 0.8Indeterminate 0.8 - 0.9Positive: > 0.9In order to reduce the incidence of a false positiveresult, the CDC recommends that all s/co ratiosbetween 1.0 and 10.9 be confirmed by a more specificsupplemental or PCR testing. [facility] offers HCV Abw/Reflex to Verification test #[id number]. :55 RF < 10.0 {IU/mL} (Normal) :55 SED tSEDRATE 7 mm/h (Normal) Range: 0-30 :55 VITD 45.5 mg/mL (Normal) Comments: Vitamin D 25(OH) Status RangeDeficiency <20 ng/mL (50nmol/L)Insuffciency 20 - 30 ng/mL (50 - 75 nmol/L)Sufficiency 30 - 100 ng/mL (75 - 250 nmol/L)Toxicity >100 ng/mL (>250 nmol/L) :05 CALCIFEDIOL (43429) Comments: PATIENT NOT FASTINGPERFORMED BY: LabV[facility] Center6370 [facility] [id number] Information: [id number] Vitamin D, 25-Hydroxy 34.1 ng/mL (Normal) Range: 30.0-100.0 Comments: Vitamin D deficiency has been defined by the [place] of[place]icine and an Endocrine Society practice guideline as alevel of serum 25-OH vitamin D less than 20 ng/mL (1,2).The Endocrine Society went on to further define vitamin Dinsufficiency as a level between 21 and 29 ng/mL (2).1. IOM ([place] of [place]). 2010. Dietary reference intakes for calcium and D. [place]: The National Academies Press.2. Stephon MF, Ana NC, Alka ROMERO, et al. Evaluation, treatment, and prevention of vitamin D deficiency: an Endocrine Society clinical practice guideline. JCEM. 2010; 96(7):1911-30. 49-Byr-48591:05 CALCIUM SERUM (03990) Comments: PATIENT NOT FASTINGPERFORMED BY: PRATIMA [address]her[address] [facility] [id number] Calcium, Serum 10.3 mg/dL (Abnormal) Range: 8.6-10.2 :43 CALCIFIDIOL (06803) VIT D Comments: PATIENT NOT FASTINGPERFORMED BY: PRATIMA [facility]Saint [facility] Ypbcex9824 [facility] [id number] Information: [id number] 25 Vitamin D, 25-Hydroxy 44.7 ng/mL (Normal) Range: 30.0-100.0 Comments: Vitamin D deficiency has been defined by the [place] of[place]icine and an Endocrine Society practice guideline as alevel of serum 25-OH vitamin D less than 20 ng/mL (1,2).The Endocrine Society went on to further define vitamin Dinsufficiency as a level between 21 and 29 ng/mL (2).1. IOM ([place] of [place]). 2010. Dietary reference intakes for calcium and D. [place]: The National Academies Press.2. Stephon MF, Ana NC, Alka ROMERO, et al. Evaluation, treatment, and prevention of vitamin D deficiency: an Endocrine Society clinical practice guideline. JCEM. 2010; 96(7):1911-30. 94-Tyg-762729:36 URINE CALCIUM KAITLIN TIMED Comments: PATIENT NOT FASTINGPERFORMED BY: [facility] Farm SystemsVeterans Affairs Medical Center6370 [facility] [id number] Information: [id number] 1950ML START 05/21@630AM FINISH 05/22/14@6 30AM 24 Hour (99230) Calcium, Urine 24hr 93.6 {mg/24_hr} (Abnormal) Range: 100.0-300.0 Calcium, Urine 4.8 mg/dL (Normal) :43 PARATHORMONE (43169) Comments: PATIENT NOT FASTINGPERFORMED BY: [facility] Farm SystemsVeterans Affairs Medical Center6370 [facility] [id number] PTH, Intact 22 pg/mL (Normal) Range: 15-65 18-Npg-24681:56 Metabolic Panel, Basic Comments: drawn next ; PATIENT NOT FASTINGPERFORMED BY: [facility] Farm SystemsVeterans Affairs Medical Center6370 [facility] [id number] Information: [id number] (19990) Calcium, Serum 10.5 mg/dL (Abnormal) Range: 8.6-10.2 Carbon Dioxide, Total 22 mmol/L (Normal) Range: 19-28 Comments: Effective May 15, 2014, the reference interval for Carbon Dioxide, Total will be changing to: 0 - 30 days 31 d - 5 months - 6 m - 11 months 1 - [...] Glucose, Serum 113 mg/dL (Abnormal) Range: 65-99 6-Fsf-366118:50 METABOLIC PANEL, Comments: PATIENT NOT FASTINGPERFORMED BY: [employer] SystemsCoSaint Barnabas Behavioral Health CenterAmpohw7021 [facility] [id number] Information: [id number] COMPREHENSIVE (86616) ALT (SGPT) 22 [iU]/L (Normal) Range: 0-32 [...] days - 31 d - 5 months 6 m [...] (Abnormal) Range: 65-99 :13 HgA1C , Office (04332) HgA1C , Office 6.5 % (Normal) Range: 4.6 - 7.1 :13 Blood Glucose , Office (29266) Blood Glucose , Office 163 (Normal) :41 [...] CREATININE RATIO Comments: PATIENT WAS FASTINGPERFORMED BY: [facility] [id number] (73425) AND (54637) Microalb/Creat Ratio 6.2 {mg/g_creat} (Normal) Range: 0.0-30.0 Microalbumin, Urine 2.2 ug/mL (Normal) Range: 0.0-17.0 Creatinine, Urine 35.7 mg/dL (Normal) Range: 15.0-278.0 :38 URINALYSIS (17881) Comments: PATIENT WAS FASTINGPERFORMED BY: [facility]70 [facility] [id number] Microscopic Examination MICRON (Normal) Comments: Microscopic follows if indicated. Nitrite, Urine Negative (Normal) Urobilinogen,Semi-Qn 0.2 mg/dL (Normal) Range: 0.0-1.9 Bilirubin Negative (Normal) Occult Blood Negative (Normal) Ketones Negative (Normal) Glucose Negative (Normal) Protein Negative (Normal) WBC Esterase Negative (Normal) Appearance Clear (Normal) Urine-Color Yellow (Normal) pH 7.5 (Normal) Range: 5.0-7.5 Specific Tyler 1.010 (Normal) Range: 1.005-1.030 :38 CALCIFEDIOL (60988) Comments: PATIENT WAS FASTINGPERFORMED BY: LabV[facility] Center6370 [facility] [id number] Vitamin D, 25-Hydroxy 44.7 ng/mL (Normal) Range: 30.0-100.0 Comments: Vitamin D deficiency has been defined by the [place] of[place]icine and an Endocrine Society practice guideline as alevel of serum 25-OH vitamin D less than 20 ng/mL (1,2).The Endocrine Society went on to further define vitamin Dinsufficiency as a level between 21 and 29 ng/mL (2).1. IOM ([place] of Medicine). 2010. Dietary reference intakes for calcium and D. [place]: The National Academies Press.2. Stephon MF, Ana ROY, Alka ROMERO, et al. Evaluation, treatment, and prevention of vitamin D deficiency: an Endocrine Society clinical practice guideline. JCEM. 2010; 96(7):1911-30. :38 TSH (00570) Comments: PATIENT WAS FASTINGPERFORMED BY: LabCoSaint Barnabas Behavioral Health CenterNvizsw6019 [facility] [id number] TSH 2.930 {uIU/mL} (Normal) Range: 0.450-4.500 :38 CBC with manual diff Comments: PATIENT WAS FASTINGPERFORMED BY: [facility] [id number] Information: [id number] (77721) Immature Grans (Abs) 0.0 {x10E3/uL} (Normal) Range: [...] 3.77-5.28 WBC 9.3 {x10E3/uL} (Normal) Range: 3.4-10.8 40-Jqk-70278:38 Metabolic Panel, Comprehensive Comments: PATIENT WAS FASTINGPERFORMED BY: LabV[facility] Center6370 [facility] [id number] (69062) ALT (SGPT) 22 [iU]/L (Normal) Range: 0-32 [...] mg/dL (Normal) Range: 65-99 :38 Lipid Panel (82945) Comments: PATIENT WAS FASTINGPERFORMED BY: [facility]70 [facility] [id number] LDL/HDL Ratio 1.2 {ratio_units} (Normal) Range: 0.0-3.2 LDL Cholesterol Calc 53 mg/dL (Normal) Range: 0-99 VLDL Cholesterol Yamilka 27 mg/dL (Normal) Range: 5-40 HDL Cholesterol 45 mg/dL (Normal) Comments: According to ATP-III Guidelines, HDL-C >59 mg/dL is considered anegative risk factor for CHD. Triglycerides 135 mg/dL (Normal) Range: 0-149 Cholesterol, Total 125 mg/dL (Normal) Range: 100-199 :05 LIPID PANEL (50136) Comments: PATIENT WAS FASTINGPERFORMED BY: Avidialin6370 [facility] [id number] Information: [id number] LDL/HDL Ratio 1.6 {ratio_units} (Normal) Range: 0.0-3.2 LDL Cholesterol Calc 76 mg/dL (Normal) Range: 0-99 VLDL Cholesterol Yamilka 30 mg/dL (Normal) Range: 5-40 HDL Cholesterol 49 mg/dL (Normal) Comments: According to ATP-III Guidelines, HDL-C >59 mg/dL is considered anegative risk factor for CHD. Triglycerides 148 mg/dL (Normal) Range: 0-149 Cholesterol, Total 155 mg/dL (Normal) Range: 100-199 23-Kto-641720:43 FECAL OCCULT HGB ASSAY- tubes sent home (51272) FECAL OCCULT HGB ASSAY, QUAL, 1-3 SIMULTANEOU negative (Normal) 74-Kzf-948545:40 Nuclear Stress Test Radiology Report See Note [...] The patient was injected with 31.6 mCi utUh01l Cardiolite and subsequently stress SPECT Cardiolite nuclear [...] 07/29/13 1751 Sign by: Yosi Merchant MD 87-Gtl-63299:52 KNEE 1 OR 2 VIEWS Radiology Report [...] Ferguson M.D.July 29, 2013 at 5:00:35 PM [id number] Signed RU/RU If you are the referring phys ician and would like to consult with theradiologist who provided this interpretation, please contact Alejandro Horton at [phone]. If this radiologist is unavailable, youwillbe directed to [facility] radiologist to assist. If you are a patient with a question regarding this report, pleasecontactyour referring physician directly. Professional Interpretation Provided By: [employer], Phone , These documents contain legally protected [...] on 07/29/131714 Si gn by: Ag Ferguson 76-Xqe-48800:52 KNEE 1 OR 2 VIEWS Radiology Report [...] Ferguson M.D.July 29, 2013 at 5:02:45 PM [id number] Signed RU/RU If you are the referring physician and would like to consult with therad iologist who provided this interpretation, please contact Alejandro Horton at [phone]. If this radiologist is unavailable, youwillbe directed to another radiologist to assist. If you are a sandra ent with a question regarding this report, pleasecontactyour referring physician directly. Professional Interpretation Provided By: [employer], Phone , These documents con tain legally [...] Ferguson on 07/29/131716 Sign by: Ag Ferguson 94-Pnt-071424:27 CCP ANTIBODY (61168) Comments: PATIENT NOT FASTINGPERFORMED BY: [employer] Qvmlvv8015 [facility] [id number] BY: Equidam[address] [id number] CCP Antibodies IgG/IgA 5 {units} (Normal) Range: 0-19 Comments: Negative <20 Weak positive 20 - 39 Moderate positive 40 - 59 Strong positive >59 78-Len-631632:27 SED RATE ERYTHROCYTE Comments: PATIENT NOT FASTINGPERFORMED BY: FamilyFinds70 [facility] [id number] BY: Equidam[address] [id number] (73880) Sedimentation Rate-Westergren 2 mm/h (Normal) Range: 0-40 21-Oyt-381805:27 C-REACTIVE PROTEIN Comments: PATIENT NOT FASTINGPERFORMED BY: [employer] Rnjkne3605 [facility] [id number] BY: [employer] [id number] (60681) C-Reactive Protein, Quant 2.1 mg/L (Normal) Range: 0.0-4.9 :27 TSH (79591) Comments: PATIENT NOT FASTINGPERFORMED BY: LabJoshua [place] 6756870 [facility] [id number] BY: [address] [id number] TSH 1.630 {uIU/mL} (Normal) Range: 0.450-4.500 68-Aix-586879:27 RHEUMATOID FACTOR-QUANT Comments: PATIENT NOT FASTINGPERFORMED BY: LabJosh[place] 6756870 [facility] [id number] BY: [address] [id number] (35684) RA Latex Turbid. 9.7 {IU/mL} (Normal) Range: 0.0-13.9 :27 HEIDI (ANTINUCLEAR ANTIBODY) Comments: PATIENT NOT FASTINGPERFORMED BY: Lab[place] 6756870 [facility] [id number] BY: [address] [id number] (77965) HEIDI Direct Negative (Normal) : CBC WITH MANUAL DIFF Comments: PATIENT NOT FASTINGPERFORMED BY: Lab[place] 6756870 [facility] [id number] BY: [address] [id number] Inf ormation: [id number] (14144) Immature Grans (Abs) 0.0 {x10E3/uL} (Normal) Range: [...] 3.77-5.28 WBC 8.5 {x10E3/uL} (Normal) Range: 4.0-10.5 03-Ajf-222230:27 METABOLIC PANEL, Comments: PATIENT NOT FASTINGPERFORMED BY: CB [facility] Emqatc2858 [facility] [id number] BY: [facility] [address] [id number] [facility] (65128) ALT (SGPT) 24 [iU]/L (Normal) Range: 0-32 [...] (Normal) Range: 65-99 :22 HgA1C , Office (62159) HgA1C , Office 5.9 % (Normal) Range: 4.6 - 7.1 :22 Blood Glucose , Office (06240) Blood Glucose , Office 148 (Normal) Comments: non fasting :44 MAGNESIUM (66390) Comments: copy to dr jose mayes; PATIENT NOT FASTINGPERFORMED BY: ShopventorySaint Barnabas Behavioral Health CenterMzqbkj5949 [facility] [id number] Magnesium, Serum 2.0 mg/dL (Normal) Range: 1.6-2.6 :44 Metabolic Panel, Basic Comments: copy to dr jose Mayes; PATIENT NOT FASTINGPERFORMED BY: ShopventorySaint Barnabas Behavioral Health CenterJemotf4676 [facility] [id number] Information: [id number] (90598) Calcium, Serum 10.1 mg/dL (Normal) Range: 8.6-10.2 [...] Glucose, Serum 141 mg/dL (Abnormal) Range: 65-99 99-Niu-281320:10 PTT (Activated Partial Comments: PATIENT NOT FASTINGPERFORMED BY: [place] 8563870 [facility] [id number] Thromboplastin Time) (00397) aPTT 30 {sec} (Normal) Range: 24-33 Comments: This test has not been validated for monitoring unfractionated heparintherapy. aPTT-based therapeutic ranges for unfractionated heparintherapy have not been established. For general guidelines onHeparin monitoring, refer to the [facility] Directory of Services. 52-Ire-085509:10 PT (Prothrobim Time) Comments: PATIENT NOT FASTINGPERFORMED BY: [facility] [id number] Information: [id number] (20302) Prothrombin Time 10.4 {sec} (Normal) Range: 9.1-12.0 INR 1.0 (Normal) Range: 0.8-1.2 Comments: Reference interval is for non-anticoagulated patients. . Suggested INR therapeutic range for Vitamin K anta gonist therapy: Standard Dose (moderate intensity therapeutic range): 2.0 - 3.0 Higher intensity therapeutic range 2.5 - 3.5 36-Qxt-753384:10 Potassium Serum (39431) Comments: PATIENT NOT FASTINGPERFORMED BY: [place] 8563870 [facility] [id number] Potassium, Serum 3.9 mmol/L (Normal) Range: 3.5-5.2 02-Zfh-588328:10 Magnesium (72933) Comments: PATIENT NOT FASTINGPERFORMED BY: [facility] [id number] Magnesium, Serum 1.9 mg/dL (Normal) Range: 1.6-2.6 :59 HgA1C , Office (05811) HgA1C , Office 5.7 % (Normal) Range: 4.6 - 7.1 :59 Blood Glucose , Office (43722) Blood Glucose , Office 149 (Normal) :08 TSH (69030) Comments: PATIENT WAS FASTINGPERFORMED BY: Equidam Packback [facility] [id number] TSH 2.390 {uIU/mL} (Normal) Range: 0.450-4.500 :08 URINALYSIS, W/ MICRO (93785) Comments: PATIENT WAS FASTINGPERFORMED BY: Sold [facility] [id number] Microscopic Examination See below: (Normal) Microscopic Examination MICRON (Normal) Comments: Microscopic follows if indicated. Nitrite, Urine Negative (Normal) Urobilinogen,Semi-Qn 0.2 mg/dL (Normal) Range: 0.0-1.9 Bilirubin Negative (Normal) Occult Blood Negative (Normal) Ketones Negative (Normal) Glucose Negative (Normal) Protein Negative (Normal) Appearance Clear (Normal) WBC Esterase Negative (Normal) pH 7.5 (Normal) Range: 5.0-7.5 Specific Tyler 1.013 (Normal) Range: 1.005-1.030 Urine-Color Yellow (Normal) :08 MICROALBUMIN: CREATININE RATIO Comments: PATIENT WAS FASTINGPERFORMED BY: Sensinode70 [facility] [id number] (64843) AND (51792) Microalb/Creat Ratio 3.8 {mg/g_creat} (Normal) Range: 0.0-30.0 Microalbumin, Urine 2.9 ug/mL (Normal) Range: 0.0-17.0 Creatinine, Urine 77.3 mg/dL (Normal) Range: 15.0-278.0 :08 METABOLIC PANEL, COMPREHENSIVE Comments: PATIENT WAS FASTINGPERFORMED BY: Equidam Cizeza6795 [facility] [id number] (81988) ALT (SGPT) 17 [iU]/L (Normal) Range: 0-32 [...] mg/dL (Abnormal) Range: 65-99 01-Apr-20138:08 LIPID PANEL (40302) Comments: PATIENT WAS FASTINGPERFORMED BY: LabCoSaint Barnabas Behavioral Health CenterUtwbqw5192 [facility] [id number] LDL/HDL Ratio 2.1 {ratio_units} (Normal) Range: 0.0-3.2 [...] MANUAL DIFF Comments: PATIENT WAS FASTINGPERFORMED BY: [employer] Sxwvea[address] [facility] [id number] Information: ADD [id number] AND DRAW FEE 99 0897 (14641) Immature Grans (Abs) 0.0 {x10E3/uL} (Normal) Range: [...] Microscopic Examination Comments: PATIENT WAS FASTINGPERFORMED BY: Equ[employer] Chpvsu2982 [facility] [id number] Bacteria None seen (Normal) Mucus Threads Present (Normal) Epithelial Cells (non renal) 0-10 {/hpf} (Normal) Range: 0 - 10 RBC 0-3 {/hpf} (Normal) Range: 0 - 3 WBC 0-5 {/hpf} (Normal) Range: 0 - 5 :49 HgA1C , Office (00255) HgA1C , Office 5.8 % (Normal) Range: 4.6 - 7.1 :49 Blood Glucose , Office (62183) Blood Glucose , Office 142 (Normal) 1-Nla-822192:13 ALFONZO CULTURE-OTHER (52209) Comments: PATIENT NOT FASTINGPERFORMED BY: [employer] SystemsMissouri Baptist Hospital-SullivanJypqel6515 [facility] [id number] Information: SRC:HEIDI [id number] Result 1 RRF (Normal) Comments: Routine respiratory hermelindo Upper Respiratory Culture Final report (Normal) 2-Lay-524574:30 Rapid Strep Test, Office (10917) Rapid Strep Test, Office Negative (Normal) 10-Vqq-914234:36 URIC ACID BLOOD (01516) Comments: PATIENT NOT FASTINGPERFORMED BY: Equidam Sphxfu4810 [facility] [id number] Information: [id number] Uric Acid, Serum 6.6 mg/dL (Normal) Range: 2.5-7.1 Comments: Therapeutic target for gout patients: <6.0 :29 Blood Glucose , Office (39081) Blood Glucose , Office 128 (Normal) :29 HgA1C , Office (69930) HgA1C , Office 5.5 % (Normal) Range: 4.6 - 7.1 60-Klj-557326:11 HgA1C , Office (72951) HgA1C , Office 5.5 % (Normal) Range: 4.6 - 7.1 43-Lgl-724626:11 Blood Glucose , Office (19997) Blood Glucose , Office 127 (Normal) :35 Microscopic Examination Comments: PATIENT WAS FASTINGPERFORMED BY: LabCo Rzuxbx5937 [facility] [id number] Bacteria Few (Normal) Mucus Threads Present (Normal) Cast Type Hyaline casts (Normal) Casts Present {/lpf} (Abnormal) Epithelial Cells (non renal) 0-10 {/hpf} (Normal) Range: 0 - 10 RBC 0-3 {/hpf} (Normal) Range: 0 - 3 WBC 6-10 {/hpf} (Abnormal) Range: 0 - 5 :35 TSH (38793) Comments: PATIENT WAS FASTINGPERFORMED BY: EquidamGallup Indian Medical CenterDlplux2585 [facility] [id number] TSH 1.550 {uIU/mL} (Normal) Range: 0.450-4.500 :35 URINALYSIS, W/ MICRO (07578) Comments: PATIENT WAS FASTINGPERFORMED BY: Equidam Packback [facility] [id number] Microscopic Examination See below: (Normal) Nitrite, Urine Negative (Normal) Urobilinogen,Semi-Qn 0.2 mg/dL (Normal) Range: 0.0-1.9 Bilirubin Negative (Normal) Occult Blood Negative (Normal) Ketones Negative (Normal) Glucose Negative (Normal) Protein Negative (Normal) WBC Esterase 1+ (Abnormal) Appearance Clear (Normal) Urine-Color Yellow (Normal) pH 6.5 (Normal) Range: 5.0-7.5 Specific Tyler 1.019 (Normal) Range: 1.005-1.030 :35 MICROALBUMIN: CREATININE RATIO Comments: PATIENT WAS FASTINGPERFORMED BY: EquidamSaint Barnabas Behavioral Health CenterTyxrda3891 [facility] [id number] (36174) AND (29489) Microalb/Creat Ratio 7.8 {mg/g_creat} (Normal) Range: 0.0-30.0 Microalbumin, Urine 17.2 ug/mL (Abnormal) Range: 0.0-17.0 Creatinine, Urine 220.8 mg/dL (Normal) Range: 15.0-278.0 :35 METABOLIC PANEL, COMPREHENSIVE Comments: PATIENT WAS FASTINGPERFORMED BY: [employer] Farm SystemsVeterans Affairs Medical Center6370 [facility] [id number] (35454) ALT (SGPT) 17 [iU]/L (Normal) Range: 0-40 [...] Glucose, Serum 97 mg/dL (Normal) Range: 65-99 91-Wjl-02583:35 LIPID PANEL (64443) Comments: PATIENT WAS FASTINGPERFORMED BY: LabCoSaint Barnabas Behavioral Health CenterKjpisx9730 [facility] [id number] LDL/HDL Ratio 1.0 {ratio_units} (Normal) Range: 0.0-3.2 [...] MANUAL DIFF Comments: PATIENT WAS FASTINGPERFORMED BY: LabCoSaint Barnabas Behavioral Health CenterWvcqsm3939 [facility] [id number] Information: [id number] (91857) Immature Grans (Abs) 0.0 {x10E3/uL} (Normal) Range: [...] (Normal) Range: 4.0-10.5 :33 HgA1C , Office (92440) HgA1C , Office 5.7 % (Normal) Range: 4.6 - 7.1 :33 Blood Glucose , Office (89431) Blood Glucose , Office 115 (Normal) 34-Iht-090136:50 KIDNEY Radiology Report See Note (Normal) Comments: [...] Dicta jorge on 07/18/11 1052 by Essie FELIXHerminioeaglenilayTranscribed on 07/19/11 0429 by ITS IMPORTSign by Essie FELIX,Marciano on 07/19/11 0430 Sign by: Marciano Fountain MD 20-Lva-817889:50 PARATHORMONE (24085) Comments: PATIENT NOT FASTINGPERFORMED BY: [employer] [facility] Mudneo0052 [facility] [id number] PTH, Intact 20 pg/mL (Normal) Range: 15-65 16-Vde-495691:50 Metabolic Panel, Comments: PATIENT NOT FASTINGPERFORMED BY: [employer] [facility] Hpacfe7387 [facility]rapeuticsAt[facility] [id number] Information: [id number] Comprehensive (68755) ALT (SGPT) 23 [iU]/L (Normal) Range: 0-40 [...] Glucose, Serum 94 mg/dL (Normal) Range: 65-99 46-Flq-399381:06 Metabolic Panel, Comments: PATIENT NOT FASTINGPERFORMED BY: LabCoSaint Barnabas Behavioral Health CenterSxstsy8101 [facility] [id number] Information: [id number] Comprehensive (94461) ALT (SGPT) 30 [iU]/L (Normal) Range: 0-40 [...] Glucose, Serum 92 mg/dL (Normal) Range: 65-99 06-Mcf-44527:17 METABOLIC PANEL, Comments: PATIENT WAS FASTINGPERFORMED BY: LabSaint [facility] Dojlqv2377 [facility] [id number] Information: [id number] COMPREHENSIVE (88092) ALT (SGPT) 27 [iU]/L (Normal) Range: 0-40 [...] mg/dL (Normal) Range: 65-99 :17 LIPID PANEL (26017) Comments: PATIENT WAS FASTINGPERFORMED BY: [facility] Pczeht6510 [place] [place] [place] [id number] LDL/HDL Ratio 1.1 {ratio_units} (Normal) Range: 0.0-3.2 LDL Cholesterol Calc 46 mg/dL (Normal) Range: 0-99 VLDL Cholesterol Yamilka 28 mg/dL (Normal) Range: 5-40 HDL Cholesterol 41 mg/dL (Normal) Comments: According to ATP-III Guidelines, HDL-C >59 mg/dL is considered anegative risk factor for CHD. Triglycerides 140 mg/dL (Normal) Range: 0-149 Cholesterol, Total 115 mg/dL (Normal) Range: 100-199 :38 Blood Glucose , Office (74955) Blood Glucose , Office 132 (Normal) :38 HgA1C , Office (78206) HgA1C , Office 5.7 % (Normal) Range: 4.6 - 7.1 13-Yez-747698:01 BILAT SCRN DIGITAL & CAD Radiology Report [...] 1051 S ign by: Anam Larios MD 92-Ujn-734200:01 DEXA BONE DENSITY STUDY (HP) Radiology Report [...] Foundation [email or web address] Dictated on 05/22/11 1030 by Alisha Larios MDscribed on 05/22/11 1335 by ITS IMPORTSign by Anam Larios MD on 05/22/11 1336 Sign by: Anam Larios MD :53 FECAL OCCULT HGB ASSAY- tubes sent home (67475) FECAL OCCULT HGB ASSAY, QUAL, 1-3 SIMULTANEOU negative (Normal) :32 HgA1C , Office (50207) HgA1C , Office 8.6 % (Abnormal) Range: 4.6 - 7.1 :32 Blood Glucose , Office (07346) Blood Glucose , Office 324 (Normal) :30 [...] 200 mg/dLsuggests DIABETES MELLITUS per A.D.A. criteria. 65-Elf-30370:30 COMPLETE UA MUCUS, URINE 0 SEEN {/hpf} [...] {uIU/mL} (Normal) Range: 0.358-3.74 :45 CULTURE, SPUTUM (85173) Comments: PATIENT NOT FASTINGPERFORMED BY: LabCo Hcetlh2647 [facility] [id number] Information: SRC:[facility] [id number] Result 1 RRF (Normal) Comments: Routine respiratory hermelindo Lower Respiratory Culture Final report (Normal) :48 HgA1C , Office (99815) HgA1C , Office 5.8 % (Normal) Range: 4.6 - 7.1 :48 Blood Glucose , Office (79253) Blood Glucose , Office 124 (Normal) :20 CHEST WITH CONTRAST Radiology Report See Note (Normal) Comments: Exam Number: [id number] CLINICAL:Sarcoidosis, shortness of breath, wheezing CT CHEST [...] allunchanged. Previous cholecystectomy? Reported By: PO MANCILLA 77-Lqw-87890:15 SERUM CRE & GFR EST GFR - AA 65 mL/min (Normal) EST GFR 54 mL/min (Abnormal) CREAT,SERUM 1.1 mg/dL (Abnormal) Range: 0.6-1.0 78-Gof-978344:42 CHEST, PA AND LATERAL (MT) Radiology Report See Note (Normal) Comments: Exam Number: [id number] CHEST X- RAY PA AND LATERAL VIEWS HISTORY:Pneumonitis due to food inhalation/aspiration. FINDINGS:PA and lateral views of the chest compared to previous chest x-rayexam in[facility]. There is moderate-degree ofdextroscoliotic curvature thoracolumbar spine. Mild cardiomegaly.No definite evidence of focal pulmonary infiltrates or effusions arenoted. No significant interval change from previous exam. Nopneumothorax. IMPRESSION:1. No acute pulmonary findings. No significant interval changesfrom previous chest x-ray examination of September 28, 2009. Mildcardiomeg zunilda. There is moderate dextroscoliotic curvature. Reported By: Joseph Núñez 70-Qyc-585933:15 MAGNESIUM (77453) Comments: PATIENT NOT FASTINGPERFORMED BY: CB [facility] Qneqtb1569 [facility] [id number] Magnesium, Serum 2.1 mg/dL (Normal) Range: 1.6-2.6 51-Blf-401470:15 Renal function Panel Comments: PATIENT NOT FASTINGPERFORMED BY: LabCoSaint Barnabas Behavioral Health CenterDcrhaq4517 [facility] [id number] Information: [id number] (32007) Albumin, Serum 4.7 g/dL (Normal) Range: 3.5-5.5 [...] (Abnormal) Range: 65-99 :46 HgA1C , Office (66247) HgA1C , Office 6.0 % (Normal) Range: 4.6 - 7.1 :46 Blood Glucose , Office (31690) Blood Glucose , Office 140 (Normal) :27 [...] T PROT 7.8 g/dL (Normal) Range: 6.4-8.2 54-Cir-399660:11 CBC with manual diff Comments: PATIENT NOT FASTINGPERFORMED BY: LabCoSaint Barnabas Behavioral Health CenterWgkicm7942 [facility] [id number] Information: [id number] (32720) Baso (Absolute) 0.0 {x10E3/uL} (Normal) Range: 0.0-0.2 [...] 3.80-5.10 WBC 9.0 {x10E3/uL} (Normal) Range: 4.0-10.5 :55 Microscopic Examination Comments: PATIENT WAS FASTINGPERFORMED BY: Sarah LipoScience Tun5992 [facility] [id number] BY: CB LabCoSaint Barnabas Behavioral Health CenterJnacws5292 [facility] [id number] Bacteria Few (Normal) Cast Type Hyaline casts (Normal) Mucus Threads Present (Normal) Casts Present {/lpf} (Abnormal) Epithelial Cells (non renal) 0-10 {/hpf} (Normal) Range: 0 - 10 RBC 0-3 {/hpf} (Normal) Range: 0 - 3 WBC 0-5 {/hpf} (Normal) Range: 0 - 5 :34 HgA1C , Office (79843) HgA1C , Office 5.9 % (Normal) Range: 4.6 - 7.1 :34 Blood Glucose , Office (74218) Blood Glucose , Office 140 (Normal) :55 TSH (94933) Comments: PATIENT WAS FASTINGPERFORMED BY: [facility] Treatment Centers Of AmericaICONIX BRAND GROUP[address] [id number] BY: [facility]6370 [facility] [id number] TSH 0.541 {uIU/mL} (Normal) Range: 0.450-4.500 Comments: Effective December 24, 2009, TSH reference interval for11 - 19 years will be changing to: 0.450 - 4.500 uIU/mLReference interval for all other ages will NOT be affected. 00-Wal-510906:55 URINALYSIS, W/ MICRO Comments: PATIENT WAS FASTINGPERFORMED BY: [address] [id number] BY: [facility]6370 [facility] [id number] (59939) Bilirubin Negative (Normal) Microscopic Examination MICRON (Normal) Comments: Microscopic follows if indicated. Microscopic Examination See below: (Normal) Nitrite, Urine Negative (Normal) Occult Blood Negative (Normal) Urobilinogen,Semi-Qn 0.2 mg/dL (Normal) Range: 0.0-1.9 Glucose Negative (Normal) Ketones Negative (Normal) Protein Negative (Normal) WBC Esterase Negative (Normal) Appearance Clear (Normal) pH 6.0 (Normal) Range: 5.0-7.5 Specific Tyler 1.020 (Normal) Range: 1.005-1.030 Urine-Color Yellow (Normal) 64-Krx-050813:55 MICROALBUMIN: CREATININE Comments: PATIENT WAS FASTINGPERFORMED BY: [address] [id number] BY: [facility]6370 [facility] [id number] RATIO (32417) AND (23694) Microalb/Creat Ratio 7.1 {mg/g_creat} (Normal) Range: 0.0-30.0 Microalbumin, Urine 8.6 ug/mL (Normal) Range: 0.0-17.0 Creatinine, Urine 120.9 mg/dL (Normal) Range: 15.0-278.0 56-Xmu-040068:55 METABOLIC PANEL, Comments: PATIENT WAS FASTINGPERFORMED BY: Sarah LipoScience Mub7506 [facility] Medical CenterRaleiSuburban Community Hospital [id number] BY: PRATIMA LabCoSaint Barnabas Behavioral Health CenterIvbfpd45[address] [facility] [id number] COMPREHENSIVE (47530) ALT (SGPT) 24 [iU]/L (Normal) Range: 0-40 [...] Glucose, Serum 105 mg/dL (Abnormal) Range: 65-99 :55 LIPOPROTEIN, BLD, BY NMR Comments: PATIENT WAS FASTINGPERFORMED BY: Sarah [employer] Rih2125 [facility] [id number] BY: PRATIMA LabVeterans Affairs Medical Center6370 [facility] [id number] Information: [id number] (52651) Large VLDL-P 2.9 nmol/L (Abnormal) Comments: Small [...] 1599High 1600 - 2000Very high > 2000. 21-Qgi-518915:55 CBC WITH MANUAL DIFF Comments: PATIENT WAS FASTINGPERFORMED BY: Sarah [employer]Science Bzi5622 [facility] [id number] BY: PRATIMA LabVeterans Affairs Medical Center6370 [facility] [id number] (34952) Baso (Absolute) 0.0 {x10E3/uL} (Normal) Range: 0.0-0.2 [...] Plan of Care Name Dates Details Instructions Non-smoker : Eprescribed prescriptions (G8553) Indication: Non-smoker Chronic kidney disease, stage III (moderate) : Reviewed Loading Manager Letter Indication: Chronic kidney disease, stage III (moderate) Chronic kidney disease, stage III (moderate) : Reviewed Lab Indication: Chronic kidney disease, stage III (moderate) Hypercholesteremia : Cholesterol mgmt Indication: Hypercholesteremia Atrial fibrillation : Continue Current Prescription(s) Indication: Atrial fibrillation Atrial fibrillation : Reviewed Loading Manager Letter Indication: Atrial fibrillation Hypertension with renal [...] KIDNEY DISEASE, STAGE IV (SEVERE) : Reviewed Loading Manager Letter Indication: CHRONIC KIDNEY DISEASE, STAGE IV (SEVERE) Diabetic autonomic neuropathy associated with type 2 diabetes mellitus : Follow up in 3 months Indication: Diabetic autonomic neuropathy associated with type 2 diabetes mellitus Chronic kidney disease, stage III (moderate) : Reviewed Loading Manager Letter Indication: Chronic kidney disease, stage III [...] sequela Aspiration of food, sequela : Reviewed Loading Manager Letter- blaise and abril Indication: Aspiration of [...] Diagnostic Tests Indication: Sarcoidosis Sarcoidosis : Reviewed Loading Manager Letter Indication: Sarcoidosis DM (diabetes mellitus), type 1, uncontrolled, with renal complications : Follow up in 3 months Indication: DM (diabetes mellitus), type 1, uncontrolled, with renal complications DM (diabetes mellitus), type 1, uncontrolled, with renal complications : Reviewed Lab Indication: DM (diabetes mellitus), type 1, uncontrolled, with renal complications Asthma : Continue Current Prescription(s) Indication: Asthma Asthma : Reviewed Loading Manager Letter Indication: Asthma CHRONIC KIDNEY DISEASE, STAGE IV (SEVERE) : Reviewed Loading Manager Letter Indication: CHRONIC KIDNEY DISEASE, STAGE IV [...] GERD (gastroesophageal reflux disease) Asthma : Reviewed Loading Manager Letter Indication: Asthma Asthma : Continue Current Prescription(s) Indication: Asthma DM (diabetes mellitus), type 1, uncontrolled, with renal complications : Follow up in 3 months- do ekg Indication: DM (diabetes mellitus), type 1, uncontrolled, with renal complications Chronic kidney disease, stage III (moderate) : Reviewed Loading Manager Letter Indication: Chronic kidney disease, stage III [...] typeII,controlled, renal comp Atrial fibrillation : Reviewed Loading Manager Letter Indication: Atrial fibrillation Hypercholesteremia : Reviewed [...] Indication: Impacted fracture Impacted fracture : Reviewed Loading Manager Letter Indication: Impacted fracture Hypertension with renal [...] kidney disease, stage III (moderate) : Reviewed Loading Manager Letter- Dr Ribeiro Indication: Chronic kidney disease, [...] kidney disease, stage III (moderate) : Reviewed Loading Manager Letter Indication: Chronic kidney disease, stage III [...] Indication: SYMPTOM, WHEEZING Bronchitis : Follow up Indication: Bronchitis Bronchitis : Continue Current Prescription(s) [...] kidney disease, stage III (moderate) : Reviewed Loading Manager Letter Indication: Chronic kidney disease, stage III [...] kidney disease, stage III (moderate) : Reviewed Loading Manager Letter Indication: Chronic kidney disease, stage III [...] kidney disease, stage III (moderate) : Reviewed Loading Manager Letter-- dr ribeiro Indication: Chronic kidney disease, [...] kidney disease, stage III (moderate) : Reviewed Loading Manager Letter: Dr ribeiro Indication: Chronic kidney disease, stage III (moderate) Diabetes mellitus type II, controlled : *Diabetes Education Indication: Diabetes mellitus type II, controlled Hypercholesteremia : Cholesterol mgmt Indication: Hypercholesteremia Hypertension with renal disease : Diet, Exercise, and Wt loss Indication: Hypertension with renal disease Hypertension with renal disease : HTN/CAD Red Flags Indication: Hypertension with renal disease Aspiration pneumonia : Reviewed Loading Manager Letter Indication: Aspiration pneumonia Aspiration pneumonia : [...] kidney disease, stage III (moderate) : Reviewed Loading Manager Letter Indication: Chronic kidney disease, stage III [...] kidney disease, stage III (moderate) : Reviewed Loading Manager Letter- w/u in progress Indication: Chronic kidney [...] reflux disease) Planned Observations METABOLIC PANEL, BASIC ([id number])Indication: Hypertension with renal disease On: 82-Pdj-042776:30 Request Comments: STAT STAT STAT STAT METABOLIC PANEL, COMPREHENSIVE ([id number])Indication: Medication monitoring encounter On: 8-Eab-491621:10 Request Parathyroid Hormone-related Peptide (PTH-rP) ([id number])Indication: Hypercalcemia On: 08-May-20168:40 Request Comments: send copy dr ribeiro CALCIUM SERUM ([id number])Indication: Hypercalcemia On: 08-May-20168:40 Request Comments: send copy to dr ribeiro ELECTROLYTES, 24 HOUR URINE ([id number])Indication: Hypercalcemia On: 9-Esq-035093:49 Request POTASSIUM SERUM ([id number])Indication: Hypercalcemia On: 6-Gvp-115216:48 Request Parathyroid Hormone-related Peptide (PTH-rP) (71887)Indication: Hypercalcemia On: :48 Request CALCIUM SERUM (32594)Indication: Hypercalcemia On: :48 Request CALCIUM URINE 12552 (88081)Indication: Hypercalcemia On: :06 Request Comments: 24 hr urine ELECTROLYTES, 24 HOUR URINE ([id number])Indication: Hypercalcemia On: :06 Request FECAL OCCULT- Tubes sent home (03385)Indication: Encounter for screening for malignant neoplasm of colon (Renamed from Special screening for malignant neoplasms, colon) On: 05-Pch-583051:47 Request Lipid Panel (85165)Indication: Hypercholesteremia On: 4-Fyf-495754:02 Request CALCIFIDIOL (73989) VIT D 25Indication: FATIGUE On: :38 Request Folate (21357)Indication: FATIGUE On: :38 Request VITAMIN B-12 (CYANOCOBALAMIN) (18932)Indication: FATIGUE On: :38 Request TSH (63230)Indication: FATIGUE On: :38 Request SED RATE ERYTHROCYTE ([id number])Indication: FATIGUE On: :38 Request RHEUMATOID FACTOR-QUANT (36437)Indication: FATIGUE On: :38 Request METABOLIC PANEL, COMPREHENSIVE (63384)Indication: FATIGUE On: :38 Request C-REACTIVE PROTEIN (55123)Indication: FATIGUE On: :38 Request CBC (AUTO) ([id number])Indication: FATIGUE On: :38 Request HEIDI (ANTINUCLEAR ANTIBODY) ([id number])Indication: FATIGUE On: :38 Request CULTURE, SPUTUM (12777)Indication: Cough On: 2-Qxj-279738:08 Request Metabolic Panel, Comprehensive (98582)Indication: Diabetes mellitus type 2, uncontrolled, without complications On: 90-Mns-911541:21 Request FECAL OCCULT HGB ASSAY- tubes sent home (34003)Indication: Encounter for Medicare annual wellness exam On: 49-Feu-01582:58 Request CALCIFIDIOL (30906) VIT D 25Indication: Vitamin D deficiency On: 68-Pkr-07147:48 Request MAGNESIUM (54493)Indication: Hypomagnesemia On: 88-Ogt-18948:47 Request URINE ALFONZO CULTURE ([place] COL COUNT) (85479)Indication: Abdominal pain On: 52-Kqp-376879:37 Request Urinalysis, Office (64476)Indication: Abdominal pain On: 20-Qlr-498942:37 Request FECAL OCCULT HGB ASSAY- tubes sent home (74873)Indication: Encounter for Medicare annual wellness exam On: 34-Wle-75287:56 Request Metabolic Panel, Basic (54792)Indication: Chronic kidney disease, stage III (moderate) On: 53-Rkh-785182:11 Request POTASSIUM SERUM (63460)Indication: Hypokalemia On: 33-Nvc-24949:13 Request TSH ([id number])Indication: Diabetes mellitus type II, controlled On: : Request URINALYSIS, W/ MICRO (67023)Indication: Diabetes mellitus type II, controlled On: : Request MICROALBUMIN: CREATININE RATIO (40725) AND (24108)Indication: Diabetes mellitus type II, controlled On: : Request METABOLIC PANEL, COMPREHENSIVE (53434)Indication: Diabetes mellitus type II, controlled On: : Request LIPID PANEL (77444)Indication: Diabetes mellitus type II, controlled On: : Request CBC WITH MANUAL DIFF ([id number])Indication: Diabetes mellitus type II, controlled On: : Request LIPOPROTEIN, BLD, BY NMR ([id number])Indication: Hypercholesteremia On: : Request LIPID PANEL (20378)Indication: Hypercholesteremia On: : Request Comments: do in 3 months HEPATIC FUNCTION PANEL (16639)Indication: Hypercholesteremia On: : Request LIPID PANEL ([id number])Indication: Hypertension, benign On: 52-Dsd-372334:33 Request Planned Encounters Medical; 3 Month FU - On: 09-Feb-2019 8:15 [facility] Veronica Oquendo DO, DO, Kathleen Planned Procedures Solu -Medrol Injection, 125 mg On: 18-Aug-2018 Intent (J2930)By: Devika LUU Kassandra Vargas Flu Vaccine (Quadrivalent) 70622Kz: On: 09-Aug-2018 Intent Veronica Oquendo DO, DO, Comments: Lot #[id number]-L dltd, IMDose prefilled syringegiven by:ANTOINE Munoz reviewed and ABN signed Veronica ELECTROCARDIOGRAM, COMPLETE (ECG) On: 09-Aug-2018 Intent (29420)By: Veronica Oquendo DO Comments: nsr - RBBB - no t acute Veronica Oquendo DO [id number]-[id number] BEHAVIORAL COUNSELING On: 09-Apr-2018 Intent FOR OBESITY, 15 MINUTES (G0447)By: Veronica Oquendo DO, DO, Kathleen SCREENING DIGITAL TOMOSYNTHESIS OF On: 09-Apr-2018 Intent BREAST ([id number])By: Veronica Oquendo DO, DO, Kathleen Solu- Medrol Injection, 125mg On: 01-Jan-2018 Intent (J2930)By: Veronica Oquendo DO Comments: 125mg - 1 [id number] hip, BARRYAllCHONG Macias DO, Kathleen CHEST XRAY, PA & LATERAL ([id number])By: On: 23-Dec-2017 Intent Veronica Oquendo DO, DO, Kathleen CHEST XRAY, PA & LATERAL ([id number])By: On: 22-Dec-2017 Intent Kelsea Lund Aerosol Treatment (52323)By: On: 22-Dec-2017 Intent Kelsea Lund Comments: Still has wheezing in right lobe after aerosol treatment. Aerosol Treatment (00012)By: Azra On: 25-Nov-2017 Veronica Pabon DO, DO, Kathleen Comments: more a/e less reactivity 0-no wheeze but still that Rub in RLL area Solu- Medrol Injection, 125mg On: 25-Nov-2017 Intent (J2930)By: Veronica Oquendo DO Comments: [id number], 1vialMLONG DIGITAL PUBLISHING SPECIALIST Veronica Oquendo DO Solu- Medrol Injection, 125mg On: 27-Oct-2017 Intent (J2930)By: Kelsea Lund Comments: solumedrol 125mg injectionlot: [id number]: 10/2019L GMpt tolerated wellAD DIGITAL PUBLISHING SPECIALIST Aerosol Treatment ([id number])By: On: 27-Oct-2017 Intent Kelsea Lund Comments: expiratory wheeze after albuterol aerosol treatment. EKG (81527)By: Veronica Oquendo DO On: 14-Oct-2017 Intent Veronica Oquendo DO Comments: nsr no acute chg- RBBB Aerosol Treatment (54320)By: Azra On: 14-Aug-2017 Veronica Pabon DO, DO, Kathleen Comments: no noise and more a/e Solu- Medrol Injection, 125mg On: 14-Aug-2017 Intent (J2930)By: Veronica Oquendo DO Comments: lot [id number] mgright gmIMas, DIGITAL PUBLISHING SPECIALIST Veronica Oquendo DO Solu- Medrol Injection, 125mg On: 05-Aug-2017 Intent (J2930)By: Veronica Oquendo DO Comments: Lot:[id number]:11/17Dose:125mgRoute:imSite:r hipGiven By:KMVIS signed Veronica Oquendo DO Flu Vaccine (Quadrivalent) [id number]: On: 28-Jul-2017 Intent Veronica Oquendo DO, DO, Kathleen ELECTROCARDIOGRAM, COMPLETE (ECG) On: 28-Jul-2017 Intent ([id number])By: Veronica Oquendo DO, DO, Kathleen IV Needle placement (38983)By: On: 14-Jul-2017 Intent Kassandra Fortune CNP ORTHOSTATIC BLOOD PRESSURE On: 14-Jul-2017 Intent ASSESSMENT ([id number])By: Kassandra Fortune CNP INFUSION, NORMAL SALINE SOLUTION , On: 14-Jul-2017 Intent 1000 CC (Special Coverage Instructions Apply. See MCM: 2049) ([id number])By: Kassandra Fortune CNP Solu -Medrol Injection, 125 mg On: 22-Jun-2017 Intent (J2930)By: Kelsea Lund Solu- Medrol Injection, 125mg On: 17-Apr-2017 Intent (J2930)By: Veronica Oquendo DO Comments: Lot:[id number]:04/2019Dose:125mgRoute:imSite:l armGiven By:NOE signed Veronica Oquendo DO DEXA SCAN AXIAL SKELETON (55425)By: On: 06-Apr-2017 Intent Veronica Oquendo DO, DO, Kathleen SCREENING DIGITAL TOMOSYNTHESIS OF On: 06-Apr-2017 Intent BREAST ([id number])By: Veronica Oquendo DO, DO, Kathleen Flu Vaccine (Quadrivalent) 67896Cf: On: 20-Aug-2016 Intent Veronica Oquendo DO, DO, Comments: FLUlot: [id number]:05/29/17site:Lt deltoidroute:IMdose:.5mlDEVALENTINA CHOWDARY Solu- Medrol Injection, 125mg On: 20-Aug-2016 Intent (J2930)By: Veronica Oquendo DO Comments: solumedrollot:[id number]:03/18site:lt glutroute:IMdose:125mgDVALENTINA Calderón DO, Kathleen Solu -Medrol Injection, 125 mg On: 13-Aug-2016 Intent (J2930)By: Kassandra Fortune CNP Comments: Lot:[id number]:02/2019Dose:125mgRoute:imSite:l hip Given By:NOE signed Aerosol Treatment ([id number])By: Irma On: 13-Aug-2016 Intent Clarisse SCHWARZ Radiology - Shoulder - LeftBy: Ciesa On: 04-Jul-2016 Intent Kassandra LUU Radiology - Knee - LeftBy: Ciesa On: 04-Jul-2016 Intent Kassandra LUU Comments: send result to Dr. Delgadillo Toradol Injection, 30 mg ([id number])By: On: 04-Jul-2016 Intent Kassandra Fortune CNP Aerosol Treatment ([id number])By: Azra On: 12-May-2016 Intent Veronica JEAN-BAPTISTE DO, Kathleen Comments: less cough and more a./e- no wheeze Solu- Medrol Injection, 125mg On: 12-May-2016 Intent (J2930)By: Veronica Oquendo DO Comments: lot: [id number]: 12/18site/route: RGM/IMamt: 2mLVIS signed when applicableChelsea, AIRPORT BAGGAGE SCREENER Veronica Oquendo DO CT - Chest (IV Contrast Needed)By: On: 09-May-2016 Intent Veronica Oquendo DO, DO, Veronica Radiology - Chest- PA and LatBy: On: 08-May-2016 Intent Veronica Oquendo DO, DO, Veronica PNEUM VAC ADLT/IMUMNOSPR, SBC/INTRM On: 21-Apr-2016 Intent ([id number])By: Veronica Oquendo DO Comments: pneumovaxlot:[id number]:09/06/17site:lt deltroute:IMD.VALENTINA Dunlap DO, Kathleen EFJQ-NF-[id number] BEHAVIORAL COUNSELING On: 21-Apr-2016 Intent FOR OBESITY, 15 MINUTES (G0447)By: Veronica Oquendo DO, DO, Kathleen MAMMOGRAM, SCREENING, BOTH BREAST On: 21-Apr-2016 Intent ([id number])By: Veronica Oquendo DO, DO, Kathleen Radiology - Knee - RightBy: Azra On: 14-Apr-2016 Intent Veronica JEAN-BAPTISTE DO, Veronica Radiology - Knee - LeftBy: Azra On: 14-Apr-2016 Intent Veronica JEAN-BAPTISTE DO, Kathleen ADMINISTRATION OF INFLUENZA VIRUS On: 09-Aug-2015 Intent VACCINE (G0008)By: Veronica Oquendo DO, DO, Kathleen Flu Vaccine (Quadrivalent) 88965Bv: On: 09-Aug-2015 Intent Veronica Oquendo DO, DO, Comments: Lot:[id number]:02/27/16Dose:0.5mLRoute:IMSite:L DltdGiven By:NOE signed Veronica Solu -Medrol Injection, 125 mg On: 03-Aug-2015 Intent (J2930)By: Veronica Oquendo DO Comments: Lot:[id number]:12/2017Dose:125mgRoute:imSite:l armGiven By:NOE signed Veronica Oquendo DO Aerosol Treatment (41170)By: Azra On: 03-Aug-2015 Veronica Pabon DO, DO, Kathleen Comments: more a/e after aerosol EKG (56215)By: Veronica Oquendo DO On: 19-Jul-2015 Intent Veronica Oquendo DO Comments: ming botello -- no new twave chg when compared to old ones Aerosol Treatment (64203)By: Azra On: 30-Apr-2015 Intent Veronica JEAN-BAPTISTE DO, Kathleen Radiology - Chest- PA and LatBy: On: 27-Apr-2015 Intent Veronica Oquendo DO, DO, Kathleen DEXA SCAN AXIAL SKELETON (59787)By: On: 17-Apr-2015 Intent Veronica Oquendo DO, DO, Kathleen INTENSIVE BEHAVIORAL THERAPY TO On: 17-Apr-2015 Intent REDUCE CARDIOVASCULAR DISEASE RISK, INDIVIDUAL, DUIS-LK-RSJY, ANNUAL, 15 MINUTES (G0446)By: Veronica Oquendo DO, DO, Kathleen KKPQ-ZZ-KGBO BEHAVIORAL COUNSELING On: 17-Apr-2015 Intent FOR OBESITY, 15 MINUTES (G0447)By: Veronica Oquendo DO, DO, Kathleen MAMMOGRAM, SCREENING, BOTH BREAST On: 17-Apr-2015 Intent ([id number])By: Veronica Oquendo DO, DO, Kathleen EKG (28009)By: Veronica Oquendo DO On: 16-Aug-2014 Intent Veronica Oquendo DO Comments: nsr nonspecif st and t wave chg old not new Radiology - Chest- PA and LatBy: On: 15-May-2014 Intent Veronica Oquendo DO, DO, Kathleen Toradol Injection, 30 mg (J1885)By: On: 12-May-2014 Intent Devika LUU Dasia Comments: Lot:[id number]:10/30/15Dose:30mgRoute:imSite:r hipGiven By:NOE signed Eprescribed prescriptions (G8553)By: On: 01-May-2014 Intent Veronica Oquendo DO DO, Veronica MAMMOGRAM, SCREENING, BOTH BREASTS On: 18-Apr-2014 Intent ([id number])By: Veronica Oquendo DO, DO, Kathleen OGWV-VV-SMSA BEHAVIORAL COUNSELING On: 18-Apr-2014 Intent FOR OBESITY, 15 MINUTES (G0447)By: Veronica Oquendo DO, DO, Kathleen Eprescribed prescriptions (G8553)By: On: 11-Apr-2014 Intent Veronica Ouqendo DO, DO, Kathleen Pulse Oximetry (38331)By: Azra JEAN-BAPTISTE, On: 11-Apr-2014 Intent Veronica Jurado DO Aerosol Treatment (70520)By: Devika On: 27-Sep-2013 Intent Kassandra LUU DWML-AQ-RYHU BEHAVIORAL COUNSELING On: 12-Sep-2013 Intent FOR OBESITY, 15 MINUTES (G0447)By: Veronica Oquendo DO, DO, Kathleen MAMMOGRAM, SCREENING, BOTH BREASTS On: 12-Sep-2013 Intent ([id number])By: Kelsea Richards LPN DRAIN/INJECT MAJOR JOINT OR BURSA On: 24-Aug-2013 Intent ()By: Kelsea Richards LPN Comments: [id number] exp 08/13 DRAIN/INJECT MAJOR JOINT OR BURSA On: 24-Aug-2013 Intent ()By: Kelsea Richards LPN Comments: lt knee lot [id number] exp 08/13 DRAIN/INJECT MAJOR JOINT OR BURSA On: 18-Aug-2013 Intent ()By: Kelsea Richards LPN Comments: lt knee lot [id number] exp 07/13 DRAIN/INJECT MAJOR JOINT OR BURSA On: 18-Aug-2013 Intent ()By: Kelsea Richards LPN Comments: rt knee lot [id number] exp 07-13 FLU VAC, SPLIT, >3 YEARS, INTRAMUSC On: 10-Aug-2013 Intent ([id number])By: Veronica Oquendo DO Comments: lot [id number] 2014site/route L sabas, IMamt 0.5mlVIS and ABN signed when applicableSTARR Lui DO, Kathleen ADMINISTRATION OF INFLUENZA VIRUS On: 10-Aug-2013 Intent VACCINE (G0008)By: Sania Ritchie DRAIN/INJECT MAJOR JOINT OR BURSA On: 10-Aug-2013 Intent ()By: Kelsea Richards LPN Comments: euflexxa injection lt knee lot [id number] exp 07/13 DRAIN/INJECT MAJOR JOINT OR BURSA On: 10-Aug-2013 Intent ()By: Kelsea Richards LPN Comments: euflexxa injection rt knee lot [id number] exp 07/13 Solu- Medrol Injection, 125mg On: 03-Aug-2013 Intent (J2930)By: Veronica Oquendo DO Comments: injected over Left sciatic area - most tender spot marked - no bleed pt tolerated well -- 08/03/13 lot # Veronica Oquendo DO Eprescribed prescriptions (G8553)By: On: 03-Aug-2013 Intent Sania Ritchie Kenalog Injection, 10 mgm On: 21-Jul-2013 Intent (J3301)By: Veronica Oquendo DO Comments: used 40 mglot: [id number]: 02/11site/route: RGM/IMamt: 40VIS signed when applicableChelsea, Veronica Gillis DO Nuclear Stress Test/Stress On: 21-Jul-2013 Intent SPECT/AdenosineBy: Azra JEAN-BAPTISTE, Comments: needs adenosine - bc 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 Veronica Jurado DO Echo CompleteBy: Veronica Oquendo DO On: 21-Jul-2013 Intent Veronica Oquendo DO Spirometry (27227)By: Azra JEAN-BAPTISTE, On: 21-Jul-2013 Intent Veronica Jurado DO Comments: mild obstruction EKG (88535)By: Veronica Oquendo DO On: 21-Jul-2013 Intent Veronica Oquendo DO Comments: nsr no acute chg - t wave inversion ant septal leads - st depression in lateral precordial leads [id number]-BF-[id number] BEHAVIORAL COUNSELING On: 21-Jul-2013 Intent FOR OBESITY, [...] Injection, 125 mg On: 03-Jun-2013 Intent (J2930)By: Devika LUU Dasia Comments: Lot: [id number]: 12/2015Amt: 125mgRoute: IMSite: RUOQ glutealGiven by: CHONG Canas EKG (75238)By: Veronica Oquendo DO On: 11-Apr-2013 Intent Veronica Oquendo DO Comments: nsr no acute chg the same nonspecific st flattening in v1v2 are presnet on old ekg's Spirometry (21736)By: Azra JEAN-BAPTISTE, On: 11-Apr-2013 Intent Veronica Jurado DO Comments: such poor technique cnt report a FEV Eprescribed prescriptions (G8553)By: On: 16-Sep-2012 Intent Kelsea Richards LPN FLU VAC, SPLIT, >3 YEARS, INTRAMUSC On: 02-Sep-2012 Intent (72096)By: Veronica Oquendo DO Comments: Lot #[id number]-5/30/13Site-left deltoidgiven by: CHONG Patrick DO, Kathleen ADMINISTRATION OF INFLUENZA VIRUS On: 02-Sep-2012 Intent VACCINE (G0008)By: Veronica Oquendo DO, DO, Kathleen DWNX-WQ-QAQM BEHAVIORAL COUNSELING On: 02-Sep-2012 Intent FOR OBESITY, 15 MINUTES (G0447)By: Veronica Oquendo DO, DO, Kathleen SPECIMEN HNDLNG/TRNSPRT, OFFC > LAB On: 04-Aug-2012 Intent ([id number])By: Suki Gutiérrez LPN MAMMOGRAM, SCREENING, BOTH BREASTS On: 28-Jul-2012 Intent (74909)By: Veronica Oquendo DO, DO, Kathleen EKG (14821)By: Veronica Oquendo DO On: 17-Jun-2012 Intent Veronica Oquendo DO Comments: nsr no acute chg Overnight Pulse Ox([id number])By: Mast On: 11-May-2012 Intent Suzy RUIZ Spirometry (37601)By: Azra JEAN-BAPTISTE, On: 17-Mar-2012 Intent Veronica Jurado DO Comments: poor technique- stable -- FLU VAC, SPLIT, >3 YEARS, INTRAMUSC On: 01-Sep-2011 Intent (14343)By: Kelsea Richards LPN Comments: given at health clinic not here Eprescribed prescriptions (G8553)By: On: 29-Jul-2011 Intent Kelsea Richards LPN Ultrasound - RenalBy: Devika LUU, On: 15-Jul-2011 Intent Dasia PNEUM VAC ADLT/IMUMNOSPR, SBC/INTRM On: 09-May-2011 Intent ([id number])By: Veronica Oquendo DO, DO, Kathleen IMMUNIZ ADMNIN, 1 VAC, SNGL/COMBO On: 09-May-2011 Intent (44967)By: Veronica Oquendo DO, DO, Kathleen DXA, BONE DENSITY, AXIAL SKELETON On: 09-May-2011 Intent (03048)By: Kelsea Richards LPN MAMMOGRAM, SCREENING, BOTH BREASTS On: 09-May-2011 Intent (81665)By: Kelsea Richards LPN Clinical Breast Examination On: 09-May-2011 Intent (G0101)By: Kelsea Richards LPN TDAP VACCINE >7 IM (59814)By: Azra On: 16-Apr-2011 Intent Veronica JEAN-BAPTISTE DO, Kathleen Comments: Lot #[id number]/24/13Site-right deltoidgiven by: Alisa Vee LPN PULMONARY STRESS TEST/SIMPLE On: 04-Mar-2011 Intent (51567)By: Veronica Oquendo DO Comments: pt unable to complete fulol test due to shortess of breath. Pt completed 3 minutes of assessment. Veronica Oquendo DO EKG (46248)By: Veronica Oquendo DO On: 03-Mar-2011 Intent Veronica Oquendo DO Comments: nsr no acute changes Pulse Oximetry (27578)By: Devika LUU, On: 29-Jan-2011 Intent Kassandra Vargas Solu- Medrol Injection, 125mg On: 29-Jan-2011 Intent (J2930)By: Kassandra Fortune CNP Pulse Oximetry (64554)By: Bernardo RN, On: 29-Jan-2011 Intent Suzy IMMUNIZ ADMNIN, 1 VAC, SNGL/COMBO On: 04-Sep-2010 Intent (19760)By: Lisa Blood FLU VAC, SPLIT, >3 YEARS, INTRAMUSC On: 04-Sep-2010 Intent (00310)By: Lisa Blood Comments: Lot:[id number]:02/2011Dose:0.5MLRoute:IMSite:left deltoidGiven by: VALENTINA Saleem CT - Chest (IV Contrast Needed)By: On: 20-Jun-2010 Intent Veronica Oquendo DO, DO, Kathleen Echo CompleteBy: Veronica Oquendo DO On: 20-Jun-2010 Intent Veronica Oquendo DO Radiology - ChestBy: Kassandra Fortune CNP On: 27-May-2010 Intent E Aerosol Treatment (14850)By: Devika On: 27-May-2010 Intent Kassandra LUU Pulse Oximetry (41200)By: Devika LUU, On: 27-May-2010 Intent Kassandra Vargas Ultrasound - LiverBy: Azra JEAN-BAPTISTE, On: 07-Mar-2010 Intent Veronica Jurado DO Spirometry (35624)By: Azra JEAN-BAPTISTE On: 07-Mar-2010 Intent Veronica Jurado DO Comments: mild obstrucition EKG (44409)By: Veronica Oquendo DO On: 14-Dec-2009 Intent Veronica Oquendo DO Comments: nsr poor R wave progression-- will request old ekg to compare Spirometry (42221)By: Azra JEAN-BAPTISTE On: 14-Dec-2009 Intent Veronica Jurado DO Comments: mild obstructive disease but some technique off Planned Medications INFUSION, NORMAL SALINE SOLUTION , 1000 CC Ordered: 14-Jul-2017 Pending Kassandra Fortune CNP INJECTION, KETOROLAC TROMETHAMINE, PER 15 MG Ordered: 12-May-2014 Pending Ciesa SOAKER, Dasia INJECTION, KETOROLAC TROMETHAMINE, PER 15 MG Ordered: 04-Jul-2016 Pending Ciesa SOAKER, Dasia INJECTION, METHYLPREDNISOLONE SODIUM SUCCINATE, UP TO 125 MG Ordered: 29-Jan-2011 Pending Ciesa SOAKER, Dasia INJECTION, METHYLPREDNISOLONE SODIUM SUCCINATE, UP TO 125 MG Ordered: 25-Nov-2017 Pending Azra DO, Veronica Azra DO, Veronica INJECTION, METHYLPREDNISOLONE SODIUM SUCCINATE, UP TO 125 MG Ordered: 27-Oct-2017 Pending Kelsea Lund INJECTION, METHYLPREDNISOLONE SODIUM SUCCINATE, UP TO 125 MG Ordered: 14-Aug-2017 Pending Azra DO, Veroinca Azra DO, Veronica INJECTION, METHYLPREDNISOLONE SODIUM SUCCINATE, [...] TO 125 MG Ordered: 13-Aug-2016 Pending Ciesa SOAKER, Dasia INJECTION, METHYLPREDNISOLONE SODIUM SUCCINATE, UP TO [...] TO 125 MG Ordered: 03-Jun-2013 Pending Ciesa SOAKER, Dasia INJECTION, METHYLPREDNISOLONE SODIUM SUCCINATE, UP TO 125 MG Ordered: 01-Jan-2018 Pending Azra DO, Veronica Azra DO, Veronica INJECTION, METHYLPREDNISOLONE SODIUM SUCCINATE, UP TO 125 MG Ordered: 18-Aug-2018 Pending Ciesa SOAKER, Dasia INJECTION, TRIAMCINOLONE ACETONIDE, NOT OTHERWISE SPECIFIED, 10 MG Ordered: 21-Jul-2013 Pending Veronica Oquendo DO, DO, Kathleen Instructions Name Dates Details Non-smoker : How to access health information online Indication: Non-smoker Non-smoker : How to access health information online - Detail Indication: Non-smoker Non-smoker : Patient Instructions Indication: Non-smoker 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 Management changes made at the last visit include adding macrobid for UTI. Symptoms include nasal congestion, clear rhinorrhea, postnasal drainage, ch End: 12-Nov-2018 11:33 [place] pain, cheek pressure, upper tooth pain, cough and headache., [ADDITIONAL REASON] Nausea - Symptoms include nausea, abdominal pain and bloating. Onset followed a change in medication (macrobid for uti pt rinsed mouth out with mouthwash felt worse nausea). Encounter Diagnosis: BMI 39.0-39.9,adult, Non-smoker, Sinusitis, bacterial, UTI (urinary tract infection), bacterial [facility] Phone Encounter On: 11-Nov-2018 14:58 Encounter Diagnosis: UTI (urinary tract infection) End: 11-Nov-2018 15:06 [facility] Lab Order On: 10-Nov-2018 17:29 Encounter Diagnosis: [...] The patient does have durable power of ip attorney and living will. The patient has noticed nothing from the geriatic depression scale. Other providers contributing to the patient's care are operations planner, primary school teacher, weight shifter and other:.Encounter Diagnosis: BMI 38.0-38.9,adult, Nonsmoker, Annual [...] The patient does have durable power of ip attorney and livin g will. The patient has noticed lack of energy. Other providers contributing to the patient's care are gastrologist, weight shifter and other: (pain management, podiatry).Encounter Diagnosis: Body [...] Reason: Follow up tests - Date: (discuss - 04-29 and 04-30).Encounter Diagnosis: Hypercalcemia (275.42), DM (diabetes mellitus), type [...] patient does not have durable power of ip attorney or living will. The patient has noticed nothing from the geriatic depression s angelica. Other providers contributing to the patient's care are weight shifter and other:.Encounter Diagnosis: Annual Medicare Phyiscal WITHOUT [...] patient does not have durable power of ip attorney or living will. The patient has [...] care from a hospital (inhaled hamburger and anguillan rice and she was in hosp from [...] providers contributing to the patient's care are primary school teacher (margaret saravia), weight shifter (dr. hayes) and other: (dr. leone. leedr. ashton). Encounter Diagnosis: Breast cancer screening [...] providers contributing to the patient's care are primary school teacher (sayleah has an appt with Dr Hammer this month at [facility] gastrologist (Michele), weight shifter (Dr Hayes) and urologist (Dr Mayes).Encounter Diagnosis: [...] Internal Medicine Payers MedicareTRICARE FOR LIFE, [place]/MCARE [facility]ITALMedicareRuth Sushil; a guarantor
--- OUTSIDE RECORDS SUMMARY | 2018-12-08 05:50 | XMS RPT_ITS | Continuity of Care Document ---
:1950 Author Organization [facility] Address [facility] 2 [place] [address] Phone Care Team Providers Name Role Phone Veronica Oqeundo DO Unavailable Octavio Delgado Unavailable Nghia Bautista MD Unavailable Lobito Kauffman DO Unavailable Derrell Palumbo Unavailable Unavailable Messenger, MOTTLER OPERATOR Kelsea Unavailable Unavailable Stephanie Rodriguez Unavailable Unavailable Slarb MOTTLER OPERATOR, Clarisse Unavailable Unavailable Maximino, Joaquina Unavailable Unavailable Gravius, Daksha Unavailable Unavailable Unavailable Unavailable Problems Name Dates [...] acid >6 after 2weeks[address] to see Dr Luz mike [place] Status: Active CHRONIC OBSTRUCTIVE ASTHMA WITH (ACUTE) [...] asthma with (acute) exacerbation (J45.901, 493.92) Comments: poked fjor alpha one antitrypsin 08/15 Status: Active Unspecified [...] (urinary tract infection) (N39.0, 599.0) Status: Active VACCINE AGAINST INFLUENZA (Z23, V04.81) Comments: Lot:4799FExp:05/17/18Amt:0.5mlRoute:IMSite: Nuria DltdGiven By: ANTOINE Ibrahim signed Status: Active [...] Quantity: 3 {Box} Refills: 3 Ordered:25-Nov-2017 Johnathon SCHWARZ Elizabeth L Start : 25-Nov-2017 Active FreeStyle Test In [...] Kathleen Start : 08-Nov-2018 Active Comments:new dose Macrobid 100 MG Oral Capsule 1 (one) Capsule bid for 10 days Quantity: 20 {Capsule} Refills: 0 Ordered:11-Nov-2018 Daksha Stearns Start : 11-Nov-2018 Active Maxzide-25 37.5-25 MG Oral Tablet 1 (one) Tablet qd for 90 days Quantity: 90 {Tablet} Refills: 3 Ordered:25-Aug-2018 Cade Oquendo DO, DO, Kathleen Start : 25-Aug-2018 Active MiraLax Oral Packet 1 (one) Packet 17 g daily for 90 days Quantity: 90 {Packet} Refills: 3 Ordered:25-Aug-2018 Cade Oquendo DO, DO, Kathleen Start : 25-Aug-2018 Active [place] 5-325 MG Oral Tablet 1 (one) Tablet 1-2 tablets q 4 hours prn for 0 days Quantity: 7 {Tablet} Refills: 0 Ordered:09-Aug-2018 Cade Ouqendo DO, DO, Kathleen Start : 09-Aug-2018 Active Comments:Dr Will Oliveira managing Pantoprazole Sodium 40 MG Oral Tablet Delayed Release 1 (one) Tablet DR bid for 90 days Quantity: 90 {Tablet} Refills: 3 Ordered:25-Aug-2018 Cade Oquendo DO, DO, Kathleen Start : 25-Aug-2018 Active [place] 3/16 31G X 5 MM Miscellaneous 1 (one) Misc Misc bid for 0 days Quantity: 1 {Box} Refills: 0 Ordered:08-Sep-2016 Cade Oquendo DO, DO, Kathleen Start : 08-Sep-2016 Active PredniSONE 10 MG Oral Tablet tad Tablet 3 x3 days, 2 x 3 days, 1 x 3 days, 1/2 x 3 days for 0 days Quantity: 20 {Tablet} Refills: 0 Ordered:18-Aug-2018 Kassandra Fortune CNP Start : 18-Aug-2018 Active Comments:with food PROBIOTIC [...] days Quantity: 3 {Inhalation} Refills: 3 Ordered:25-Aug-2018 Azra JEAN-BAPTISTE VeronicaAzra Veronica Start : 25-Aug-2018 Active TraMADol HCl 50 MG Oral Tablet 1 bid (50 MG) Active Trilipix 135 MG Oral Capsule Delayed Release [address] qd for 90 days Quantity: 90 {Capsule} Refills: 3 Ordered:19-Aug-2018 Azra JEAN-BAPTISTE VeronicaAzra Veronica Start : 19-Aug-2018 Active Uloric 40 MG Oral Tablet 1 (one) Tablet qd for 0 days Quantity: 90 {Tablet} Refills: 3 Ordered:15-Sep-2018 Azra JEAN-BAPTISTE VeronicaAzra Veronica Start : 15-Sep-2018 Active Comments:pt cant [...] Quantity: 7 {Capsule} Refills: 0 Ordered:14-Jul-2017 Devika LUUKassandra Start : 14-Jul-2017 End : 21-Jul-2017 Inactive [...] for 10 days Refills: 0 Ordered:03-Jun-2013 Devika LUUKassandra Start : 03-Jun-2013 End : 13-Jun-2013 Inactive [...] Oral Tablet bid 14 (100 MG) Inactive Doxycycline Monohydrate 100 MG Oral Tablet 1 (one) Tablet Tablet bid for 0 days Quantity: 14 {Tablet} Refills: 0 Ordered:14-Jan-2018 Kelsea Richards LPN Start : 29-Oct-2017 End : 14-Jan-2018 Inactive FARXIGA, 5MG (Oral Tablet) 1 (one) [...] End : 10-Apr-2016 Inactive VITAMIN D (ERGOCALCIFEROL), [id number] (Oral Capsule) 1 (one) Capsule daily for [...] Start : 01-Jul-2017 End : 14-Jul-2017 Discontinued BYSUNG 10 MCG PEN, 10MCG/0.04ML (Subcutaneous Solution Pen-injector) [...] Discontinued Comments:Dispense mini needles CALCIUM + D, [phone]-MG-IU (PO Cap) 2 qd for 0 days [...] prn for 0 days Refills: 0 Ordered:02-Sep-2012 HluszLisha byrd LPN End : 02-Sep-2012 Discontinued Comments:This order [...] days Quantity: 90 {Tablet} Refills: 0 Ordered:14-Aug-2015 Kyliechelsey SCHWARZ Clarisse Start : 17-Apr-2015 End : 14-Aug-2015 [...] Hypercalcemia (E83.52, 275.42) Status: Resolved as of 21-Sep-2016 Hypertension, benign (I10, 401.1) Comments: just took [...] Luanne 05-12-2014 per patient phone call is dus 2013 total knee replacement left knee 06/19/18 Completed 20-May-2018 Comments: dr oliveira- jeri ortho Date Value Details 26-Oct-2018 Lumbar Spine 2 or 3 Views Result: Comments: See Note; NOTES: [facility] Imaging Services [address] [place] [address] Lumbar Spine 2 or 3 Views MR#: [id number] Acct: [id number] Name: SUGEY LING Rep #: [id number] : 1950 F 67 From: Dwight Choudhury DO PCP: Veronica Oquendo DO Status: REG CLI Study: Lumbar Spine 2 or 3 Views Date of Exam: 10/26/18 Exam# [id number] Ordering Dr: Chetan Medina MD STUDY: X-RA [...] CC: Chetan Medina MD; Veronica Oquendo DO Strategy Associate: Signed 22-May-2018 Orthopedic Visit Report Result: Comments: See Note; NOTES: [facility] Orthopaedics AND Sports Medicine [address] [place] [address] OFFICE VISIT Date of Service: 05/11/18 MR#: [id number] Acct: [id number] Name: SUGEY LING Rep #: [id number] : 1950 Provider: Tia Chirinos MD Age/Sex: 67/F [place] [facility] [place]: Signed Intake Intake Visit Reasons: LOW [...] [History Confirmed 01/07/18] Fluticasone 0.05% [Flonase Nasal [place]] 1 spray NASAL DAILY 06/21/17 [History Confirmed 01/07/18] Fluticasone/Salmeterol [Advair 500/50 Mcg Diskus] 1 puff INHALATION BID 06/21/17 [History Confirmed 01/08/18] Furosemide [Lasix] 40 mg PO DAILY PRN PRN 06/21/17 [History Confirmed 01/07/18] Insulin Detemir [Levemir (BKC)] 24 units SC QHS 06/21/17 [History Con firmed 01/08/18] [place]-3S/Dha/Epa/Fish Oil [Fish Oil 1,200 mg Softgel] 1 ea PO DAILY 06/21/17 [History Confirmed 01/07/18] Pantoprazole Sodium [Protonix] 40 mg PO BID 06/21/17 [History Confirmed 8] Tiotropium [place] [Spiriva Respimat] 2 puff IH DAILY 06/21/17 [...] nothin g. 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 vac press operator who would not clear her for a [...] (CAD), BILAT Result: Comments: See Note; NOTES: [facility] Imaging Services [address] [place] [address] SCREENING MAMM (CAD), BILAT MR#: [id number] Acct: [id number] Name: SUGEY LING Rep #: [id number] : 1950 F 67 From: Anam Larios MD PCP: Veronica Oquendo DO Status: REG CLI Study: SCREENING MAMM (CAD), BILAT Date of Exam: 05/20/18 Exam# [id number] Ordering Dr: Veronica Oquendo O MAMMOGRAPHY - [...] delay biopsy of a clinically suspicious abnormality. [id number] Electronically Signed: Anam Larios MD at 7:57 EDT Tel [phone], Service jolly pport , CC: Veronica Oquendo DO Strategy Associate: Signed 29-Jan-2018 Modified Barium Swallow Study Result: Comments: See Note; NOTES: [facility] Speech Pathology [address] [place] [address] Modified Barium Swallow Study MR#: [id number] Acct: [id number] Name: SUGEY LING Rep #: [id number] : 1950 67 From: Eliezer Duke M.A., CFY-DIRECTOR MEDICAL SCIENCE PRIMARY / SECONDARY DIAGNOSIS: dysphagia (R13.10) REFERRING [...] Patien t inhaled pieces of hamburger and [place] rice. 04/26/2014 underwent bronchoscopy with bronchial lavage and foreign body removal after aspirating rice during intake of hamburger and [place] rice. 2017 CT/Chest revealed old granulomatous disease; no acute pulmonary abnormality; resolution of the right lower lobe infiltrate seen on the prior CT. 12/31/2017 CXR revealed cardiomegaly; pectus excavat um deformity; no acute abnormality is seen. 01/08/2018 underwent bronchoscopy with bronchial lavage and foreign body removal after aspirating rice during intake of English food with resulting pneumoniti s of both food and emesis with bronchospasm, documentation reveals history of esophageal strictures with plans for flight attendant referral for possible esophageal dilatation. Patient reports [...] Thin liquids via cup (single sip): 1 Oy[place] thickened liquids via cup (single sip) : 1 [place] thickened liquids via cup (single sip): 2 [place] thickened liquids via cup (single sip): 1 [...] l functioning, with workup currently underway via flight attendant. Patient able to comprehend and express recommended [...] 1520 <Electronically signed by Eliezer Duke M.A., CFY-DIRECTOR MEDICAL SCIENCE> Date Eliezer Duke M.A. CFY-DIRECTOR MEDICAL SCIENCE Co-Signature Required for all Medicare patients Date/Time Co-Signature CC: 29-Jan-2018 Swallowing Function w/Video Result: Comments: See Note; NOTES: [facility] Imaging Services [address] [facility] [place] [address] Swallowing Function w/Video MR#: [id number] Acct: [id number] Name: SUGEY LING Rep #: [id number] : 1950 F 67 From: Anam Larios MD PCP: Azra DO,Veronica Status: REG CLI Study: Swallowing Function w/Video Date of Exam: 01/29/18 Exam# [id number] Ordering Dr: Isaías Stroud MD STUDY: SWALLOWING [...] Anam Larios MD at 14:25 EST Tel [phone], Service support , CC: Veronica Stroud Strategy Associate: Signed 30-Dec-2017 Chest PA and Lateral Result: Comments: See Note; NOTES: [facility] Imaging Services [address] [place] [address] Chest PA and Lateral MR#: [id number] Acct: [id number] Name: SUGEY LING Rep #: [id number] : 1950 F 67 From: Anam Larios MD PCP: Veronica Oquendo DO Status: REG CLI Study: Chest PA and Lateral Date of Exam: 12/30/17 Exam# [id number] Ordering Dr: Octavio Delgado MD STUDY: X- [...] Anam Larios MD at 12:54 EST Tel [phone], Service support , CC: Veronica Oquendo DO; Octavio Delgado MD Strategy Associate: Signed 22-Dec-2017 Chest PA and Lateral Result: Comments: See Note; NOTES: [facility] Imaging Services [address] [place] [address] Chest PA and Lateral MR#: [id number] Acct: [id number] Name: SUGEY LING Rep #: [id number] : 1950 F 67 From: Ronnie Bradford MD PCP: Veronica Oquendo DO Status: REG CLI Study: Chest PA and Lateral Date of Exam: 12/22/17 Exam# [id number] Ordering Dr: Kelsea Lund STUDY: X-RAY C HEST REASON FOR EXAM: [...] , CC: NAKIA Lund; Veronica Oquendo DO Strategy Associate: Signed 04-Dec-2017 Chest without Contrast Result: Comments: See Note; NOTES: [facility] Imaging Services [address] [place] [address] Chest without Contrast MR#: [id number] Acct: [id number] Name: SUGEY LING Rep #: [id number] : 1950 F 67 From: Rogelio Alston DO PCP: Veronica Oquendo DO Status: REG CLI Study: Chest without Contrast Date of Exam: 12/04/17 Exam# [id number] Ordering Dr: Octavio Delgado MD STUDY: CT [...] Rogelio Alston DO at 13:14 EST Tel [phone], Service support , CC: Veronica Oquendo DO; Octavio Delgado MD Strategy Associate: Signed 17-Nov-2017 Emergency Department Summary Result: Comments: See Note; NOTES: [facility] Medical Records Department [address] [place] [address] Emergency Department Summary 11/16/17 1811 MR#: [id number] Acct: [id number] Name: SUGEY LING Rep #: [id number] : 1950 66 From: Lobito Lee MD [...] a prednisone taper and sees a pul pit boss. I believe that she should continue her [...] Aspiration event This note was generated with Medopad dictation software. It may contain incorrect words, [...] your Primary Care Provider. Call [facility] ([phone]) or report to the closest Emergency Room. Call 911 if necessary. 11/17/17 0054 <Electronically signed by Lobito Lee MD> Date Lobito Lee MD Cosigner Signature (If Indicated): Date CC: Veronica Oquendo DO 16-Nov-2017 Chest PA and Lateral Result: Comments: See Note; NOTES: [facility] Imaging Services [address] [place] [address] Chest PA and Lateral MR#: [id number] Acct: [id number] Name: SUGEY LING Rep #: [id number] : 1950 F 66 From: Ivone Guevara MD PCP: Veronica Oquendo DO Status: [facility] ER Study: Chest PA and Lateral Date of Exam: 11/16/17 Exam# [id number] Ordering Dr: Lobito Lee MD STUDY: X-RAY [...] Fax CC: Veronica Oquendo DO; Lobito Lee Strategy Associate: Signed 09-Oct-2017 Chest PA and Lateral Result: Comments: See Note; NOTES: [facility] Imaging Services [address] [place] [address] Chest PA and Lateral MR#: [id number] Acct: [id number] Name: SUGEY LING Rep #: [id number] : 1950 F 66 From: Anam Larios MD PCP: Veronica Oquendo DO Status: [facility] CLI Study: Chest PA and Lateral Date of Exam: 10/09/17 Exam# [id number] Ordering Dr: Will Oliveira MD STUDY: X-RAY [...] Anam Larios MD at 15:14 EST Tel [phone], Service support , CC: Veronica Oquendo DO; Will Oliveira MD Strategy Associate: Signed 15-Jul-2017 PT D/C Summary (1) Result: Comments: See Note; NOTES: [facility] Physical Therapy [facility] [address] [place] [address]. [address] [place], [place] [address] Fax REHABILITATION SERVICES DISCHAR GE SUMMARY MR#: [id number] Acct: [id number] Name: SUGEY LING Rep #: [id number] [...] physical therapy, please feel free to yamilka nuria id at [phone]. Thank you for the referral of this patient. Sincerely, Nghia Willis, PT, <Electronically signed by Nghia Willis PT, Cert. T, OCS> 07/15/17 0817 CC: Chetan Medina MD; Veronica Oquendo DO WENCESLAO Signed 11-Jul-2017 Emergency Department Summary Result: Comments: See Note; NOTES: [facility] Medical Records Department [address] [place] [address] Emergency Department Summary 06/21/17 0738 MR#: [id number] Acct: [id number] Name: SUGEY LING Rep #: [id number] : 1950 66 From: Rufino Vela MD [...] ED Arthritis Gout Prescriptions: Hydrocodone Bitart/Apap 5-325 [[place] 5/325] 1 - 2 tablet PO Q4H PRN PRN #7 tablet PRN Reason: Pain Referrals: Veronica Oquendo, [Primary Care Provider] - What to do if you have Problems For any increased pain, shortness of breath, bleeding, na usea or vomiting, chest pain, or any unexpected problems, contact your Primary Care Provider. Call [employer] [facility] ([phone]) or report to the closest Emergency Room. Call 911 if necessary. 07/11 0903 <Electronically signed by Rufino Vela MD> Date Rufino Vela MD Cosigner Signature (If Indicated): Date ___ CC: Veronica Oquendo DO 21-Jun-2017 Discharge Instruction Result: Comments: See Note; NOTES: [facility] Medical Records Department [address] [place] [address] [place] [address] Discharge Instruction 06/21/17 0740 MR#: [id number] Acct: [id number] Name: Sissy LING Rep #: [id number] : 1950 66 From: Rufino Vela MD PCP: Veronica Oquendo DO Status: REG ER ED Disposition - Plan for ED Patient: Chief Complaint: Lower Extremity Injury Instruction s: ED Arthritis Gout Prescriptions: Hydrocodone Bitart/Apap 5-325 [[place] 5/325] 1 - 2 tablet PO Q4H PRN PRN #7 tablet PRN Reason: Pain Referrals: Veronica Oquendo DO [Primary Care Provider] - What to do if you have Problems For any increased pain, shortness of breath, bleeding, nausea or vomiting, chest pain, or any unexpected problems, contact your Primary Care Provider. Call [facility] ([phone]) or report to the closest Emergency Room. Call 911 if necessary. 06/21/17 0742 <Electronically signed by Rufino Vela MD> Date Rufino Vela MD Cosigner Signature (If Indicated): Date CC: Veronica Oquendo DO 19-Jun-2017 Re-Evaluation - PT (1) Result: Comments: See Note; NOTES: [facility] Physical Therapy [facility] [address] [place], [place] [address] Fax REEVALUATION / MEDICARE RECERT VEL [facility] 4d PHYSICAL THERAPY MR#: [id number] Acct: [id number] Name: SUGEY LING Rep #: [id number] : 1950 66 From: Nghia Willis PT, [...] 4-6 Weeks Goal Progress: Progressing Goal 5:: Javon narvaez will be able to sleep at least [...] do not hesitate to contact me at [phone] by phone or if you have questions [...] Bending Views Result: Comments: See Note; NOTES: [facility] Imaging Services [address] [place] [address] Verdana 4d L/S Spine Comp/w Bending Views MR#: [id number] Acct: [id number] Name: DAVE LING Rep #: [id number] : 1950 F 66 From: Ronnie Bradford MD PCP: Veronica Oquendo DO Status: REG CLI Study: L/S Spine Comp/w Bending Views Date of Exam: 06/09/17 Exam# [id number] Ordering Dr: Alicia Chirinos MD STUDY: X-RAY [...] CC: Tia Chirinos M.D.; Veronica Oquendo DO Strategy Associate: Signed 26-May-2017 Re-Evaluation - PT (1) Result: Comments: See Note; NOTES: [facility] Physical Therapy [address] [place] [address] Fax REEVALUATION / MEDICARE ASHANTIRTLei [facility] 4d PHYSICAL THERAPY MR#: [id number] Acct: [id number] Name: SUGEY LING Rep #: [id number] : 1950 66 From: Nghia Willis PT, [...] do not hesitate to contact me at [phone] by phone or if you have questions [...] Study (HP) Result: Comments: See Note; NOTES: [facility] Imaging Services [address] [place] [address] [facility] 4d Dexa Bone Density Study () MR#: [id number] Acct: [id number] Name: SUGEY LING Rep #: [id number] : 1950 F 66 From: Anam Larios MD PCP: Veronica Oquendo DO Status: REG CLI Study: Dexa Bone Density Study () Date of Exam: 05/12/17 Exam# [id number] Ordering Dr: Veronica Bridges DO STUDY: DUAL [...] Anam Larios MD at 12:45 EDT Tel [phone], Service support , CC: Veronica Oquendo DO Strategy Associate: Signed 12-May-2017 SCREENING MAMM (CAD), BILAT Result: Comments: See Note; NOTES: [facility] Imaging Services [address] [place] [address] Verdana 4d SCREENING MAMM (CAD), BILAT MR#: [id number] Acct: [id number] Name: HORTENSIASUGEY Devin Rep #: [id number] : 1950 F 66 From: Royce Phipps MD PCP: Veronica Oquendo DO Status: REG CLI Study: SCREENING MAMM (CAD), BILAT Date of Exam: 05/12/17 Exam# [id number] Ordering Dr: Azra, Bren cash DO MAMMOGRAPHY - BILATERAL SCREENING REASON FOR [...] delay biopsy of a clinically suspicious abnormality. [id number] Electronically Signed: Royce Phipps MD at 13:24 EDT Tel , Service support , CC: Veronica Oquendo DO Strategy Associate: Signed 30-Apr-2017 Inital Evaluation (1) - PT Result: Comments: See Note; NOTES: [facility] Physical Therapy [facility] [address] [place], [place] [address] Fax REHABILITATION SERVICES INITIAL EVALUATION MR#: [id number] Acct: [id number] Name: SUGEY LING Rep #: [id number] [...] bowel/bladder problems. Physical therapy went well in [place], she was able to walk again. Social: [...] to be FAXED BACK to us at [phone] for Medicare purposes. Please let me know if there are questions or concerns rega rding this plan of care. Physician Signature: Date: <Electronically signed by Nghia Willis PT, Cert. T, OCS> 04/30/17 2020 CC: Chetan Medina MD; Veronica Oquendo DO JLA Signed For Medicare only, by signing this I certify the plan of care. Physicians Signature Date 24-Apr-2017 Spine Lumbar (Routine) Result: Comments: See Note; NOTES: [facility] Imaging Services [address] [place] [address] Fili 4d Spine Lumbar (Routine) MR#: [id number] Acct: [id number] Name: SUGEY LING Rep #: [id number] : 1950 F 66 From: Ronnie Bradford MD PCP: Veronica Oquendo DO Status: REG CLI Study: Spine Lumbar (Routine) Date of Exam: 04/24/17 Exam# [id number] Ordering Dr: Chetan Medina MD [facility]: MRI LUMBAR SPINE WITHOUT CONTRAST REASON FOR [...] CC: Chetan Medina MD; Veronica Oquendo DO Strategy Associate: Signed 15-Apr-2017 Hips B/L min 2 views w/ Pelvis Result: Comments: See Note; NOTES: [facility] Imaging Services [address] [place] [address] Verdana 4d Hips B/L min 2 views w/ Pelvis MR#: [id number] Acct: [id number] Name: DAVE LING Rep #: [id number] : 1950 F 66 From: Jeremiah Ramos MD PCP: Veronica Oquendo DO Status: REG CLI Study: Hips B/L min 2 views w/ Pelvis Date of Exam: 04/15/17 Exam# [id number] Ordering Dr: Chetan Hubbard MD STUDY: X-RAY [...] CC: Chetan Medina MD; Veronica Oquendo DO Strategy Associate: Signed 16-Jul-2016 Spirometry (20490) Result: 16-Jul-2016 ELECTROCARDIOGRAM, COMPLETE (ECG) (73429) Comments: no new chg cmpared to last ekg Result: [MEASUREMENTS ANALYSIS] Date of Test: 07/16/2016 11:05:02; Heart Rate: 69; TN Interval: 144; QRS: 104; QT Interval: 394; Corrected QT Interval (QTc): 409; P Wave [place]: 56; QRS Wave [place]: 55; T Wave [place] : 90; Blood Pressure: 122/78 [ECG DIAGNOSTIC STATEMENTS] Date of Test: 07/16/2016 11:05:02; Summary: Sinus Rhythm Low voltage in limb leads. - Negative T- waves -Possible Anterior ischemia. ABNORMAL 04-Jul-2016 Knee 4 or More Views Result: Comments: See Note; NOTES: [facility] Imaging Services [address] [place] [address] Verdana 4d Knee 4 or More Views MR#: [id number] Acct: [id number] Name: SUGEY LING Rep # : [id number] : 1950 F 65 From: Ivone Guevara MD PCP: Veronica Oquendo DO Status: REG CLI Study: Knee 4 or More Views Date of Exam: 07/04/16 Exam# [id number] Ordering Dr: Kassandra Fortune STUDY: X-RAY - [...] at 16:23 EDT Tel , Service support [phone], CC: Kassandra Fortune; Veronica Oquendo DO Strategy Associate: Signed 03-Jun-2016 Emergency Department Summary Result: Comments: See Note; NOTES: [facility] Medical Records Department [address] [place] [address] Emergency Department Summary MR#: [id number] Acct: [id number] Name: SUGEY LING Rep #: [id number] : 1950 65 From: Ronaldo Verduzco MD [...] Carolyn Ness C: Veronica Reeder MD T: [facility] JOB: [id number] 06/03/16 1307 <Electronically signed by Ronaldo Verduzco MD> Date Ronaldo Verduzco MD Cosigner Signature (If Indicated): Date CC: Vernoica Oquendo DO; Will Oliveira MD Date Dictated: 06/03/16 1232 Date Transcribed: 06/03/16 1232 Strategy Associate: Signed 03-Jun-2016 Discharge Instruction Result: Comments: See Note; NOTES: [facility] Medical Records Department [address] [place] [address] Discharge Instruction 06/03/16 1230 MR#: [id number] Acct: [id number] Name: SUGEY LING Rep #: [id number] : 1950 65 From: Ronaldo Verduzco MD PCP: Veronica Oquendo DO Status: REG ER ED Disposition - Plan for ED Patient: Disposition: Home or Assisted Living [facility] Complaint: Fall Instructions: ED Fracture, Shoulder, [...] problems, contact your doctor. Call [facility] ([phone]) or report to the closest Emergency Room. Call 911 if necessary. 06/03/16 1234 <El ectronically signed by Ronaldo Verduzco MD> Date Ronaldo Verduzco MD Cosigner Signature (If Indicated): Date CC: Veronica Oquendo DO 03-Jun-2016 Shoulder min 2 Views Result: Comments: See Note; NOTES: [facility] Imaging Services [address] [place] [address] Verdana 4d Shoulder min 2 Views MR#: [id number] Acct: [id number] Name: SUGEY LING Rep #: [id number] : 1950 F 65 From: Anam Larios MD PCP: Veronica Oquendo DO Status: REG ER Study: Shoulder min 2 Views Date of Exam: 06/03/16 Exam# [id number] Ordering Dr: Ronaldo Verduzco MD STUDY: X-RAY [...] Anam Larios MD at 12:42 EDT Tel [phone], Service support [phone], RAD/Shoulder min 2 Views IMPRESSION: I suspect a nondisplaced impacted fracture of the surgical neck of the humerus. Electronically Signed: Anam rinaldi MD at 12:42 EDT Tel [phone], Service support [phone], CC: Veronica Oquendo DO; Ronaldo Verduzco MD Strategy Associate: Signed 13-May-2016 L/S Spine Min 4 Views Result: Comments: See Note; NOTES: [facility] Imaging Services [address] [place] [address] Verdana 4d L/S Spine Min 4 Views MR#: [id number] Acct: [id number] Name: SUGEY LING Rep #: [id number] : 1950 F 65 From: Anam Larios MD PCP: Veronica Oquendo DO Status: REG CLI Study: L/S Spine Min 4 Views Date of Exam: 05/13/16 Exam# [id number] Ordering Dr: Chetan Luo MD STUDY: X-RAY [...] Anam Larios MD at 8:31 EDT Tel [phone], Service support [phone], RAD/L/S Spine Min 4 Views IMPRESSION: Status post laminectomy and fusion at the L4-L5 and L5-S1 levels with prosthetic disc insertion. Grade 2 anterior listhesis of L5 on S1. Electron ically Signed: Anam Larios MD at 8:31 EDT Tel [phone], Service support [phone], CC: Chetan Medina MD; Veronica Oquendo DO Strategy Associate: Signed 13-May-2016 Chest WITH Contrast Result: Comments: See Note; NOTES: [facility] Imaging Services [address] [place] [address] Verdana 4d Chest WITH Contrast MR#: [id number] Acct: [id number] Name: Sissy LING [facility] A Rep #: [id number] : 1950 F 65 From: Anam Larios MD PCP: Veronica Oquendo DO Status: REG CLI Study: Chest WITH Contrast Date of Exam: 05/13/16 Exam# [id number] Ordering Dr: Veronica Oquendo DO STUDY: CT [...] Fatty infiltration of the liver. Electronically Signed: Aanm Larios MD at 8:42 EDT Tel [phone], Service support , CC: Veroncia Oquendo DO Strategy Associate: Signed 09-May-2016 Bilat Scrn Digital AND CAD Result: Comments: See Note; NOTES: [facility] Imaging Services [address] [place] [address] Verdana 4d Bilat Scrn Digital AND CAD MR#: [id number] Acct: [id number] Name: SUGEY LING Rep #: [id number] : 1950 F 65 From: Anam Larios MD PCP: Veronica Oquendo DO Status: REG CLI Study: Bilat Scrn Digital AND CAD Date of Exam: 05/09/16 Exam# [id number] Order ing Dr: Veronica Oquendo DO MAMMOGRAPHY [...] delay biopsy of a clinically suspicious abnormality. [id number] Electronically Signed: Anam Larios MD at 10:46 EDT Tel [phone], Se rvice support [phone], CC: Veronica Oquendo DO Strategy Associate: Signed 09-May-2016 Chest PA and Lateral Result: Comments: See Note; NOTES: [facility] Imaging Services [address] [place] [address] Verdana 4d Chest PA and Lateral MR#: [id number] Acct: [id number] Name: SUGEY LING Rep #: [id number] : 1950 F 65 From: Anam Larios MD PCP: Veronica Oquendo DO Status: REG CLI Study: Chest PA and Lateral Date of Exam: 05/09/16 Exam# [id number] Ordering Dr: Veronica Davidson DO STUDY: X-RAY [...] Anam Larios MD at 9:41 EDT Tel [phone], Service support [phone], RAD/Chest PA and Lateral IMPRESSION: Focal area of increased markings in the right midlung. Followup is recommended. Electronically Signed: Anam Larios MD at 9:41 EDT Tel [phone], Service support [phone], CC: Veronica Oquendo DO Strategy Associate: Signed 15-Apr-2016 Knee 4 or More Views Result: Comments: See Note; NOTES: [facility] Imaging Services [address] [place] [address] Verdana 4d Knee 4 or More Views MR#: [id number] Acct: [id number] Name: SUGEY LING Rep #: [id number] : 1950 F 65 From: Royce Phipps MD PCP: Veronica Oquendo DO Status: REG CLI Study: Knee 4 or More Views Date of Exam: 04/15/16 Exam# [id number] Ordering Dr: Tad Oquendo DO STUDY: X-RAY [...] 10:30 EDT Tel , Servic e support [phone], RAD/Knee 4 or More Views IMPRESSION: Degenerative arthrosis. Electronically Signed: Royce Phipps MD at 10:30 EDT Tel , Service support [phone], CC: Veronica Oquendo DO Strategy Associate: Signed 15-Apr-2016 Knee 4 or More Views Result: Comments: See Note; NOTES: [facility] Imaging Services [address] [place] [address] Verdana 4d Knee 4 or More Views MR#: [id number] Acct: [id number] Name: SUGEY LING Rep #: [id number] : 1950 F 65 From: Royce Phipps MD PCP: Veronica Oquendo DO Status: REG CLI Study: Knee 4 or More Views Date of Exam: 04/15/16 Exam# [id number] Ordering Dr: Tad Oquendo DO STUDY: X-RAY [...] 10:39 EDT Tel , Ser vice support [phone], RAD/Knee 4 or More Views IMPRESSION: Degenerative arthrosis. Electronically Signed: Royce Phipps MD at 10:39 EDT Te l , Service support [phone], CC: Veronica Oquendo DO Strategy Associate: Signed 30-Jul-2015 Spirometry (91930) Result: 19-Jul-2015 Spirometry (12480) Comments: mild obstruction - asx Result: 08-May-2015 Bilat Scrn Digital AND CAD Result: Comments: See Note; NOTES: [facility] Imaging Services [address] [place] [address] Breast Imaging Report MR#: [id number] Acct: [id number] Name: SUGEY LING Rep #: [id number] : 1950 F 64 From: Anam Larios MD PCP: Veronica Oquendo DO Status: REG CLI Study: Bilat Scrn Digital AND CAD Date of Exam: 05/08/15 Exam# [id number] Ordering Dr: Pippa Oquendo DO MAMMOGRAPHY - [...] Jj Larios MD at 10:50 EDT Tel [phone], Service support [phone], CC: Veronica Oquendo DO Strategy Associate: Signed 08-May-2015 Dexa Bone Density Study (HP) Result: Comments: See Note; NOTES: [facility] Imaging Services [address] [place] [address] Bone Density Report MR#: [id number] Acct: [id number] Name: SUGEY LING Rep #: [id number] : 1950 F 64 From: Anam Larios MD PCP: Veronica Oquendo DO Status: REG CLI Study: Dexa Bone Density Study () Date of Exam: 05/08/15 Exam# [id number] Ordering Dr: Pippa Oquendo DO STUDY: DUAL [...] Anam Larios MD at 15:32 EDT Tel [phone], Service support [phone], CC: Veronica Oquendo DO Strategy Associate: Signed 27-Apr-2015 Chest PA and Lateral Result: Comments: See Note; NOTES: [facility] Imaging Services [address] [place] [address] Radiology Report MR#: [id number] Acct: [id number] Name: SUGEY LING Rep #: [id number] : 1950 F 64 From: Lilian Dominguez MD PCP: Veronica Oquendo DO Status: REG CLI Study: Chest PA and Lateral Date of Exam: 04/27/15 Exam# [id number] Ordering Dr: Veronica Oquendo DO STUDY : [...] MD at 22:33 EDT , Service support [phone], RAD/Chest PA and Lateral IMPRESSION: No acute cardiopulmonary findings or changes. Mild hyper expansion and stable mild chronic lung changes. Stigmata of prior granulomatous disease. Atherosclerosis. Demineralized osseous structures and dextroscoliosis. Electronically Signed: Lilian Dominguez MD at 22:33 EDT , Service support [phone], CC: Veronica Oquendo DO Strategy Associate: Signed 31-May-2014 Foot min 3 Views Result: Comments: See Note; NOTES: [facility] Imaging Services [address] [place] [address] Radiology Report MR#: [id number] Acct: [id number] Name: SUGEY LING Rep #: [id number] : 1950 F 63 From: Celso Guerrero DO PCP: Veronica Oquendo DO Status: REG CLI Study: Foot min 3 Views Date of Exam: 05/31/14 Exam# [id number] Ordering Dr: Jade Benson MD STUDY: X-RAY [...] at 9:32 EDT Tel , Service support [phone], CC: Veronica Oquendo DO; Jade Benson MD Strategy Associate: Signed 31-May-2014 Foot min 3 Views Result: Comments: See Note; NOTES: [facility] Imaging Services [address] [place] [address] Radiology Report MR#: [id number] Acct: [id number] Name: SUGEY LING Rep #: [id number] : 1950 F 63 From: Celso Guerrero DO PCP: Veronica Oquendo DO Status: REG CLI Study: Foot min 3 Views Date of Exam: 05/31/14 Exam# [id number] Ordering Dr: Jade Benson MD STUDY: X-RAY [...] DO at 9:34 EDT , Service support [phone], CC: Veronica Oquendo DO; Jade Benson MD Strategy Associate: Signed 31-May-2014 Hand Min 3 Views Result: Comments: See Note; NOTES: [facility] Imaging Services [address] [place] [address] Radiology Report MR#: [id number] Acct: [id number] Name: SUGEY LING Rep #: [id number] : 1950 F 63 From: Celso Guerrero DO PCP: Veronica Oquendo DO Status: REG CLI Study: Hand Min 3 Views Date of Exam: 05/31/14 Exam# [id number] Ordering Dr: Jade Benson MD STUDY: X-RAY [...] DO at 9:42 EDT , Service support [phone], CC: Veronica Oquendo DO; Jade Benson MD Strategy Associate: Signed 31-May-2014 Hand Min 3 Views Result: Comments: See Note; NOTES: [facility] Imaging Services [address] [place] [address] Radiology Report MR#: [id number] Acct: [id number] Name: SUGEY LING Rep #: [id number] : 1950 F 63 From: Celso Guerrero DO PCP: Veronica Oquendo DO Status: REG CLI Study: Hand Min 3 Views Date of Exam: 05/31/14 Exam# [id number] Ordering Dr: Jade Benson MD STUDY: X-RAY [...] at 9:43 EDT , Servic e support [phone], RAD/Hand Min 3 Views IMPRESSION: Osteopenia with degenerative changes. No acute fracture demonstrated. Electronically Signed: Ashok keith DO at 9:43 EDT , Service support [phone], CC: Veronica Oquendo DO; Jade Benson MD Strategy Associate: Signed 19-May-2014 Chest PA and Lateral Result: Comments: See Note; NOTES: [facility] Imaging Services [address] [place] [address] Radiology Report MR#: [id number] Acct: [id number] Name: SUGEY LING Rep #: [id number] : 1950 F 63 From: Marciano Fountain MD PCP: Status: REG CLI Study: Chest PA and Lateral Date of Exam: 05/19/14 Exam# [id number] Ordering Dr: Veronica Oquendo DO STUDY: X-RAY [...] MD at 5:44 EDT , Service support [phone], CC: Veronica Oquendo DO Strategy Associate: Signed 18-Apr-2014 EKG (76038) Comments: nsr no acute chg Result: [MEASUREMENTS ANALYSIS] Date of Test: 04/18/2014 09:33:28; Heart Rate: 72; TN Interval: 148; QRS: 108; QT Interval: 392; Corrected QT Interval (QTc): 413; P Wave [place]: 63; QRS Wave [place]: 59; T Wave [place] : 66; Blood Pressure: 138/62 [ECG DIAGNOSTIC STATEMENTS] Date of Test: 04/18/2014 09:33:28; Summary: Sinus Rhythm Low voltage in limb leads. - Negative precordial T-waves. ABNORMAL 16-Sep-2013 Bilat Scrn Digital & CAD Result: Comments: See Note; NOTES: [facility] Imaging Services [address] [place] [address] Breast Imaging Report MR#: [id number] Acct: [id number] Name: SUGEY LING Rep #: [id number] : 1950 F 62 From: Anam Larios MD PCP: Veronica Oquendo DO Status: REG CLI Exam# [id number] Ordering Dr: Veronica Oquendo DO MAMMOGRAPHY - [...] September 16, 2013 at 9:43:10 AM EDT [phone] Electronically Signed GP/GP If you are the referring physician and would like to consult with the radiologist who provided this interpretation, please contact Anam Webb i, M.D. at [phone]. If this radiologist is unavailable, you will be directed to another radiologist to assist. If you are a patient with a question regarding this report, please contact your re ferring physician directly. Professional Interpretation Provided By: [employer], Phone , These documents contain legally protected [...] of these documents. CC: Veronica Oquendo DO Strategy Associate: Signed Family History Unknown Family Member Name [...] kg/m2 Body Surface Area Calculated 1.85 m2 08-Mkg-15747:57 Temperature 98.2 f Comments: Method: Temporal Pulse [...] kg/m2 Body Surface Area Calculated 1.85 m2 30-Uvd-271633:51 Temperature 98.4 f Comments: Method: Tympanic Respiration [...] Surface Area Calculated 1.86 m2 :39 Comments: [facility] and had a glaucoma test [...] kg/m2 Body Surface Area Calculated 1.9 m2 40-Tqj-133846:16 Pulse 84 /min Comments: Pattern: Regular Respiration [...] kg/m2 Body Surface Area Calculated 1.89 m2 62-Mez-604060:17 Comments: [facility] and had a glaucoma test [...] kg/m2 Body Surface Area Calculated 1.9 m2 06-Hey-159620:20 Comments: 138/70 2nd bp Pulse 96 /min [...] Standard Weight 202.375 lb :09 Comments: [facility] and had a glaucoma test [...] kg/m2 Body Surface Area Calculated 1.9 m2 59-Esw-942341:22 Pulse 79 /min Comments: Pattern: Regular Respiration [...] kg/m2 Body Surface Area Calculated 1.86 m2 20-Yxt-817467:36 Pulse 95 /min Comments: Pattern: Regular Respiration [...] 1.83 m2 Results Date Description Value Details 74-Hse-24709:00 Basic Metabolic Profile (BMP) Comments: [facility] [address] [place], [place], [address] GAP 5 (Normal) Range: 5-15 CO2 29.0 [...] A.D.A. criteria.Please note revised GLUCOSE reference range iovdfavvl47/02/2018. 50-Lfr-152254:23 Microscopic Examination Comments: PATIENT WAS FASTINGPERFORMED BY: [facility] [employer] [id number] BY: AliPresbyterian Kaseman HospitalLovmne2132 [facility] [id number] Bacteria Few (Normal) Epithelial Cells (non renal) 0-10 {/hpf} (Normal) Range: 0 - 10 RBC 0-2 {/hpf} (Normal) Range: 0 - 2 WBC 0-5 {/hpf} (Normal) Range: 0 - 5 87-Zho-883833:23 CALCIFIDIOL (38075) VIT D Comments: PATIENT WAS FASTINGPERFORMED BY: [employer] [employer] [id number] BY: Neptune.iolin6370 [facility] [id number] 25 Vitamin D, 25-Hydroxy 47.6 ng/mL (Normal) Range: 30.0-100.0 Comments: Vitamin D deficiency has been defined by the [place] [employer] and an Endocrine Society practice guideline as alevel of serum 25-OH vitamin D less than 20 ng/mL (1,2).The Endocrine Society went on to further define vitamin Dinsufficiency as a level between 21 and 29 ng/mL (2).1. IOM ([place] of [employer]). 2010. Dietary reference intakes for calcium and D. [place]: The National Academies Press.2. Stephon MF, Ana ROY, Alka ROMERO, et al. Evaluation, treatment, and prevention of vitamin D deficiency: an Endocrine Society clinical practice guideline. JCEM. 2010; 96(7):1911-30. 24-Wrh-709542:23 TSH (58569) Comments: PATIENT WAS FASTINGPERFORMED BY: [address] [id number] BY: [place] [id number] [facility] [id number] TSH 2.870 {uIU/mL} (Normal) Range: 0.450-4.500 33-Ynl-797147:23 URINALYSIS, W/ MICRO Comments: PATIENT WAS FASTINGPERFORMED BY: [address] [id number] BY: [address] [id number] ([address]) Microscopic Examination See below: (Normal) Comments: Microscopic was indicated and was performed. Nitrite, Urine Positive (Abnormal) Urobilinogen,Semi-Qn 0.2 mg/dL (Normal) Range: 0.2-1.0 Bilirubin Negative (Normal) Occult Blood Negative (Normal) Ketones Negative (Normal) Glucose Negative (Normal) Protein Negative (Normal) WBC Esterase 1+ (Abnormal) Appearance Clear (Normal) Urine-Color Yellow (Normal) pH 6.5 (Normal) Range: 5.0-7.5 Specific [place] 1.020 (Normal) Range: 1.005-1.030 :23 MICROALBUMIN: CREATININE Comments: PATIENT WAS FASTINGPERFORMED BY: [address] [id number] BY: [place] [id number] [facility] [id number] RATIO (73459) AND (28844) Alb/Creat Ratio 6.4 {mg/g_creat} (Normal) Range: 0.0-30.0 Comments: Normal: 0.0 - 30.0 Albuminuria: 31.0 - 300.0 Clinical albuminuria: >300.0 Albumin, Urine 4.4 ug/mL (Normal) Creatinine, Urine 68.8 mg/dL (Normal) 64-Vva-749951:23 METABOLIC PANEL, Comments: PATIENT WAS FASTINGPERFORMED BY: [address] [id number] BY: PRATIMA [facility]CoCommunity Medical CenterDjwvht9808 [facility] [id number] COMPREHENSIVE (94935) ALT (SGPT) 18 [iU]/L (Normal) Range: 0-32 [...] 8-27 Glucose 120 mg/dL (Abnormal) Range: 65-99 87-Fxb-662859:23 LIPOPROTEIN, BLD, BY NMR Comments: PATIENT WAS FASTINGPERFORMED BY: [facility]CoSaint Peter[facility] University HospitalJylpimmavt0728 [facility] [id number] BY: [facility]CoCommunity Medical CenterYaglid3987 [facility] [id number] (63994) LP-IR Score 63 (Abnormal) Comments: INSULIN RESISTANCE MARKER <--Insulin Sensitive Insulin Resistant--> Percentile in Reference PopulationInsulin Resistance ScoreLP-IR Score Low 25th 50th 75th High <27 27 45 63 >63LP-IR Score is inaccurate if patient is non-fasting. .The LP-IR score is a laboratory developed i [facility] that has beenassociated with insulin resistance and [...] 1600 - 2000 Very High > 2000 36-Zvq-649897:23 CBC W/AUTO DIFF WBC Comments: PATIENT WAS FASTINGPERFORMED BY: BN [facility] [address] [id number] BY: CB [facility] Zilmue6931 [facility] [id number] (32862) Immature Grans (Abs) 0.0 {x10E3/uL} (Normal) Range: [...] 3.77-5.28 WBC 9.2 {x10E3/uL} (Normal) Range: 3.4-10.8 99-Fuj-65598:27 HgA1C , Office (14621) HgA1C , Office 7.4 % (Abnormal) Range: 4.6 - 7.1 24-Kbo-72819:27 Blood Glucose , Office (20002) Blood Glucose , Office 143 (Normal) 2-Obm-334077:21 CBC-Complete Blood Cnt No Diff Comments: [facility] [address] [place], [phone](366) MPV 9.8 fL (Normal) Range: 6.2-12.0 PLT [...] 4.2-5.4 WBC 7.0 K/mm3 (Normal) Range: 4.4-11.0 6-Zpt-449735:21 Magnesium Comments: [facility] [address] [place], [phone] MG 1.9 mg/dL (Normal) Range: 1.6-2.6 8-Nsp-007950:21 Protein+Creatinine Ratio,Urine Comments: [facility] [address] [place], [address] PROT:CRE RATIO 116 {mg/g_CRE} (Normal) Range: 0-200 PROTEIN,UR.RAN. 8.6 mg/dL (Normal) UR CREAT 74.00 mg/dL (Normal) 1-Pki-254818:21 PTHIN 36.7 pg/mL (Normal) Comments: [facility] [address] [place], [phone] Range: 18.4-80.1 6-Jhv-809084:21 Renal Profile Comments: [facility] [address] [place], [phone] CO2 27.0 mmol/L (Normal) Range: 21.0-32.0 CL [...] A.D.A. criteria.Please note revised GLUCOSE reference range pazbwmgvr77/02/2018. 1-Iot-181333:21 Uric Acid Comments: [facility] [address] [place], [address] URIC 5.6 mg/dL (Normal) Range: 2.6-6.0 Comments: The drugs N-Acetylcysteine and Metamizole may falselydepress this assay. 6-Aio-108839:21 Vitamin D,25 Hydroxy Comments: [facility] [address] [place], [address] Vitamin D 25-OH 32.8 ng/mL (Normal) Range: 29.95-100.01 Comments: Vitamin D 25(OH) Status Range Deficiency <20 ng/mL (50nmol/L) Insuffciency 20 - 30 ng/mL (50 - 75 nmol/L) Sufficiency 30 - 100 ng/mL (75 - 250 nmol/L) Toxicity >100 ng/mL (>250 nmol/L) :59 URIC ACID BLOOD (19906) Comments: PATIENT NOT FASTINGPERFORMED BY: [facility] Altiqi6821 [facility] [id number] Uric Acid 8.7 mg/dL (Abnormal) Range: 2.5-7.1 Comments: Therapeutic target for gout patients: <6.0 :34 HgA1C , Office (35997) HgA1C , Office 6.5 % (Normal) Range: 4.6 - 7.1 :33 Blood Glucose , Office (17479) Blood Glucose , Office 103 (Normal) :32 Basic Metabolic Profile (BMP) Comments: [facility] [address] [place], [address] GAP 3 (Abnormal) Range: 5-15 CO2 31.0 [...] A.D.A. criteria.Please note revised GLUCOSE reference range gwcydevdv26/02/2018. :36 HgA1C , Office (25410) HgA1C , Office 6.6 % (Normal) Range: 4.6 - 7.1 :36 Blood Glucose , Office (89988) Blood Glucose , Office 186 (Normal) Comments: not fasting 9-Pvq-111973:28 Miscellaneous Lab Procedure Comments: Comments: TRAMADOL URINE [id number](s) Ordered: URINE TOXICOLOGY [id number] RUN [facility] [address] [place], [id number] MISC Comments: [id number] 6+OXYCODONE-BUND (ng/mL)DRUG RESULT SCREEN CUTOFF____ Amphetamines,Urine Negat LAB (Normal) emy ng/mL 1000Amphetamine test includes Amphetamine and Methamphetamine.Barbiturates Negative ng/mL 200Benzodiazepines Negative ng/mL 200Cannabinoid TEST Negative ng/mL 20Cocaine (Metab) Negative ng/mL 300Opiates Negative ng/mL 300 Opiates test includes Codeine, Morphine, Hydromorphone, Wasta codone.Oxycodone/Oxymorphone,Urine Negative ng/mL 300 Test includes Oxydodone and Oxymorphone. TESTING PERFORMED AT [facility]. ORIGINAL REPORT ON FILE IN LAB CONTAINS ADDITIONAL TEST SITE INFORMATION. 2-Afz-154839:28 Miscellaneous Lab Procedure 2 Comments: Comments: TRAMADOL URINE [id number] Test(s) Ordered by Physician: URINE TOXICOLOGY [id number] RUN [facility] [address] [place], [address] MISC Comments: TEST RESULT LIMITSTramadol Positive Cutoff = 200 Tramadol GC/MS COnf 6050 ng/mL Cutoff = 100 LAB (Normal) TESTING PERFORMED AT [facility]. ORIGINAL REPORT ON FILE IN LAB CONTAINS ADDITIONAL TEST SITE INFORMATION. TEST 2 1-Cqw-161838:28 Urine Drug Screen (VISTA) Comments: Comments: TRAMADOL URINE [id number] of Drugs Taken or Suspected? [facility] [address] [facility] [place], [address] THC NEGATIVE (Normal) PCP NEGATIVE (Normal) [...] TESTING MUST BE ORDERED SEPARATELY. USE TESTMNEMONIC: [facility] 65-Xyv-686623:14 CBC-Complete Blood Cnt No Diff Comments: [facility] [address] [place], [address] MPV 9.5 fL (Normal) Range: 6.2-12.0 PLT [...] 4.2-5.4 WBC 9.7 K/mm3 (Normal) Range: 4.4-11.0 05-Keb-485338:14 Magnesium Comments: [facility] [address] [place], [address] MG 1.7 mg/dL (Normal) Range: 1.6-2.6 29-Irt-754287:14 Microalb:Creat Ratio,Random UR Comments: [facility] [address] [place], [address] MALB:CREAT 5.5 {mg/g_CRE} (Normal) MICROALBUMIN,UR 6.1 mg/L (Normal) UR CREAT 111.00 mg/dL (Normal) 81-Ale-500911:1 PTHIN 25.7 pg/mL (Normal) Comments: [facility] [address] [place], [address] 4 Range: 18.4-80.1 Comments: Please Note: PTH INTACT METHOD AND REFERENCE RANGE CHANGEEffective 11/18/2017. 86-Jil-945370:14 Renal Profile Comments: [facility] [address] [place], [address] CO2 27.0 mmol/L (Normal) Range: 21.0-32.0 CL [...] A.D.A. criteria.Please note revised GLUCOSE reference range kxawaaoem14/02/2018. 12-Ngq-335569:14 Uric Acid Comments: [facility] [address] [place], [id number] URIC 8.4 mg/dL (Abnormal) Range: 2.6-6.0 Comments: The drugs N-Acetylcysteine and Metamizole may falselydepress this assay. 52-Dro-310833:14 Vitamin D,25 Hydroxy Comments: [facility] [address] [place], [address] Vitamin D 25-OH 36.6 ng/mL (Normal) Range: 29.95-100.01 Comments: Vitamin D 25(OH) Status Range Deficiency <20 ng/mL (50nmol/L) Insuffciency 20 - 30 ng/mL (50 - 75 nmol/L) Sufficiency 30 - 100 ng/mL (75 - 250 nmol/L) Toxicity >100 ng/mL (>250 nmol/L) :27 HgA1C , Office (57571) HgA1C , Office 6.7 % (Normal) Range: 4.6 - 7.1 7-Fpj-702893:13 Bedside Glucose Comments: [facility] LaboratoryPoint of Fsml[address] [place] [address] BEDSIDE GLU 132 mg/dL (Abnormal) Range: 70-110 Comments: MANAGEMENT OF PATIENT CARE PER NURSING PROTOCOL 08-Jan-20180:00 Culture, Bronch Aveolar Lavage Comments: [facility] [address] [place], [place], [address] CUBRL See Note (Normal) Comments: List Antibiotics Last 48 Hours? .List Antibiotics to be Started? .Gram StainGram Stain No White Blood Cells No organisms seen Resp. CultureMixed normal respiratory hermelindo. No Haemophilus, Streptoc occus pneumoniae, beta-hemolytic Streptococcus or Staphylococcus aureus isolated. 42-Nqb-159138:06 HgA1C , Office (72095) HgA1C , Office 8.2 % (Abnormal) Range: 4.6 - 7.1 14-Vvk-983857:06 Blood Glucose , Office (94367) Blood Glucose , Office 168 (Normal) 94-Pyr-340536:00 Culture, Fungus 8482 Comments: [facility] [address] [place], [place], [id number] CUF See Note Comments: PER ORDER, SPUTUM SMEAR/CULTURE FUNGAS Cu,Ltlkdw0204 TESTING PERFORMED AT [facility]. ORIGINAL REPORT ON FILE IN LAB CONTAINS NEO TIONAL TEST (Normal) SITE INFORMATION. CUF Positive Fungus Culture ORGANISM 1: Yana albicansAmount Growth Growth 18-Hns-455970:00 Culture, Sputum Comments: [facility] [address] [place], [place], [id number] CUSP See Note (Normal) Comments: PER ORDER, SPUTUM SMEAR/CULTURE FUNGAS Gram StainAcceptable Specimen? Yes (<25 Epithelial cells per/lpf) Gram Stain 1+ White Blood Cells 1+ Epithelial cells 1+ Gram positive cocci Resp. CultureMixed normal respiratory hermelindo. No Haemophilus, Streptococcus pneumoniae, beta-hemolytic Streptococcus or Staphylococcus aureus isolated. 92-Kfd-455633:49 BNP,B-Type NATRIURETIC PEPTIDE Comments: [facility] [address] [place], [address] B-TYPE EB PEP 41.7 pg/mL (Normal) Range: 0-100 64-Dbz-313552:30 Rapid Flu (13308 x 2) Influenza A Ag neg (Normal) 4-Fhx-788102:14 Bedside Glucose Comments: [facility] LaboratoryPoint of Emop[address] [place] [address] BEDSIDE GLU 151 mg/dL (Abnormal) Range: 70-110 Comments: MANAGEMENT OF PATIENT CARE PER NURSING PROTOCOL 07-Dec-20170:00 Culture, Bronch Aveolar Lavage Comments: [facility] [address] [place], [address] CUBRL See Note (Normal) Comments: [...] S(NF) indicates non-formulary drug at [facility]. Approval by Infectious Disease Specialist required before non-formulary drugs may be ordered and/or dispensed. 5-Rkb-601470:27 CBC-Complete Blood Cnt No Diff Comments: [facility] [address] [place], [address] MPV 10.0 fL (Normal) Range: [...] 4.2-5.4 WBC 14.0 K/mm3 (Abnormal) Range: 4.4-11.0 2-Pqr-675985:27 Hemoglobin A1c Comments: [facility] [address] [place], [address] HGB A1C 7.9 % (Abnormal) Range: 4.2-6.3 6-Ogl-479941:27 Magnesium Comments: [facility] [address] [place], [id number] MG 1.9 mg/dL (Normal) Range: 1.8-2.4 2-Bbc-769701:27 Microalb:Creat Ratio,Random UR Comments: [facility] [address] [place], [address] MALB:CREAT 12.0 {mg/g_CRE} (Normal) MICROALBUMIN,UR 11.1 mg/L (Normal) UR CREAT 92.40 mg/dL (Normal) 6-Vrg-215371:27 PTHIN 83.3 pg/mL (Abnormal) Comments: [facility] [address] [place], [id number] Range: 18.4-80.1 Comments: Please Note: PTH INTACT METHOD AND REFERENCE RANGE CHANGEEffective 11/18/2017. 5-Tvy-012727:27 Renal Profile Comments: [facility] [address] [place], [address] CO2 24.0 mmol/L (Normal) Range: 21.0-32.0 CL [...] 200 mg/dLsuggests DIABETES MELLITUS per A.D.A. criteria. 4-Ouf-294962:27 Uric Acid Comments: [facility] Yiffzjekif6974 [facility]. [place], [place], [id number] URIC 9.0 mg/dL (Abnormal) Range: 2.6-6.0 Comments: The drugs N-Acetylcysteine and Metamizole may falselydepress this assay. 3-Kzs-293857:27 Vitamin D,25 Hydroxy Comments: [facility] [address] [facility] [address] [place], [place], [address] Vitamin D 25-OH 34.1 ng/mL (Normal) Comments: Vitamin D 25(OH) Status Range Deficiency <20 ng/mL (50nmol/L) Insuffciency 20 - 30 ng/mL (50 - 75 nmol/L) Sufficiency 30 - 100 ng/mL (75 - 250 nmol/L) Toxicity >100 ng/mL (>250 nmol/L) 17-Ahg-51424:22 THROAT CULTURE (15250) Comments: PATIENT NOT FASTINGPERFORMED BY: [facility] Qdxjav5498 [facility] [id number] Information: SRC:TH Result 1 RRF (Normal) Comments: Routine respiratory hermelindo Upper Respiratory Culture Final report (Normal) 97-Mkq-290556:09 Rapid Flu (34685 x 2) Comments: Negative Influenza A Ag negative (Normal) 91-Nbp-441838:09 Rapid Strep Test, Office (91602) Comments: Negative Rapid Strep Test, Office Negative (Normal) 32-Vkx-574470:52 Microscopic Examination Comments: PATIENT WAS FASTINGPERFORMED BY: [facility]CoCommunity Medical CenterDmivdd4513 [facility] [id number] Bacteria None seen (Normal) Mucus Threads Present (Normal) Epithelial Cells (non renal) 0-10 {/hpf} (Normal) Range: 0 - 10 RBC 0-2 {/hpf} (Normal) Range: 0 - 2 WBC 0-5 {/hpf} (Normal) Range: 0 - 5 30-Twf-149620:08 Magnesium Comments: [facility] [address] [place], [address] MG 1.9 mg/dL (Normal) Range: 1.8-2.4 44-Tfx-946858:08 Microalb:Creat Ratio,Random UR Comments: [facility] [address] [place], [address] MALB:CREAT 8.5 {mg/g_CRE} (Normal) MICROALBUMIN,UR 5.2 mg/L (Normal) UR CREAT 61.10 mg/dL (Normal) 69-Srk-553264:08 PTH,INTACT Comments: [facility] [address] [place], [address] PTH,Intact 40 pg/mL (Normal) Range: 14-72 59-Fmn-842943:08 Renal Profile Comments: [facility] [address] [place], [address] CO2 23.0 mmol/L (Normal) Range: 21.0-32.0 CL [...] criteria. :08 Uric Acid Comments: [facility] Ytmifsbeqp4674 [facility]. [place], [place], [id number] URIC 8.0 mg/dL (Abnormal) Range: 2.6-6.0 Comments: The drugs N-Acetylcysteine and Metamizole may falselydepress this assay. :08 Vitamin D,25 Hydroxy Comments: [facility] Mau[address]cs9140 [facility]. [place], [place], [address] Vitamin D 25-OH 27.6 ng/mL (Normal) Comments: Vitamin D 25(OH) Status Range Deficiency <20 ng/mL (50nmol/L) Insuffciency 20 - 30 ng/mL (50 - 75 nmol/L) Sufficiency 30 - 100 ng/mL (75 - 250 nmol/L) Toxicity >100 ng/mL (>250 nmol/L) :52 URINALYSIS, W/ MICRO (40823) Comments: PATIENT WAS FASTINGPERFORMED BY: [facility] Ojblix9118 [facility] [id number] Microscopic Examination See below: (Normal) Comments: Microscopic was indicated and was performed. Nitrite, Urine Negative (Normal) Urobilinogen,Semi-Qn 0.2 mg/dL (Normal) Range: 0.2-1.0 Bilirubin Negative (Normal) Occult Blood Negative (Normal) Ketones Negative (Normal) Glucose 1+ (Abnormal) Protein Negative (Normal) WBC Esterase 1+ (Abnormal) Appearance Clear (Normal) Urine-Color Yellow (Normal) pH 6.5 (Normal) Range: 5.0-7.5 Specific [place] 1.023 (Normal) Range: 1.005-1.030 94-Dzh-308115:52 MICROALBUMIN: CREATININE RATIO Comments: PATIENT WAS FASTINGPERFORMED BY: KarmaKey Bfilwa5984 [facility] [id number] (91875) AND (22172) Microalb/Creat Ratio 7.6 {mg/g_creat} (Normal) Range: 0.0-30.0 Microalbumin, Urine 6.8 ug/mL (Normal) Creatinine, Urine 89.4 mg/dL (Normal) :52 METABOLIC PANEL, COMPREHENSIVE Comments: PATIENT WAS FASTINGPERFORMED BY: BetKlub6370 [facility] [id number] (86537) ALT (SGPT) 22 [iU]/L (Normal) Range: 0-32 [...] Glucose, Serum 99 mg/dL (Normal) Range: 65-99 67-Whl-870777:52 CBC W/AUTO DIFF WBC (66518) Comments: PATIENT WAS FASTINGPERFORMED BY: LabCoCommunity Medical CenterEjrofx5045 [facility] [id number] Immature Grans (Abs) 0.0 {x10E3/uL} (Normal) Range: [...] 3.77-5.28 WBC 13.0 {x10E3/uL} (Abnormal) Range: 3.4-10.8 :52 LIPID PANEL (23257) Comments: PATIENT WAS FASTINGPERFORMED BY: VLST CorporationCommunity Medical CenterAcwilu1708 [facility] [id number] LDL/HDL Ratio 1.8 {ratio_units} (Normal) Range: 0.0-3.2 [...] 158 mg/dL (Normal) Range: 100-199 :52 TSH (51852) Comments: PATIENT WAS FASTINGPERFORMED BY: Publish2[facility]6370 [facility] [id number] TSH 1.390 {uIU/mL} (Normal) Range: 0.450-4.500 :52 CALCIFEDIOL (67117) Comments: PATIENT WAS FASTINGPERFORMED BY: Publish2[facility]6370 [facility] [id number] Vitamin D, 25-Hydroxy 38.5 ng/mL (Normal) Range: 30.0-100.0 Comments: Vitamin D deficiency has been defined by the [place] of[place]icine and an Endocrine Society practice guideline as alevel of serum 25-OH vitamin D less than 20 ng/mL (1,2).The Endocrine Society went on to further define vitamin Dinsufficiency as a level between 21 and 29 ng/mL (2).1. IOM ([place] of Medicine). 2010. Dietary reference intakes for calcium and D. [place]: The National Academies Press.2. Stephon MF, Ana ROY, Alka ROMERO, et al. Evaluation, treatment, and prevention of vitamin D deficiency: an Endocrine Society clinical practice guideline. JCEM. 2010; 96(7):1911-30. :32 HgA1C , Office (15860) HgA1C , Office 8.1 % (Abnormal) Range: 4.6 - 7.1 :32 Blood Glucose , Office (31222) Blood Glucose , Office 122 (Normal) :37 Immature Cells Comments: PATIENT WAS FASTINGPERFORMED BY: LabCorewell [facility]6370 [facility] [id number] Myelocytes 1 % (Abnormal) Range: 0 - 0 Metamyelocytes 3 % (Abnormal) Range: 0 - 0 :16 PHOSPHORUS (48950) Comments: PATIENT WAS FASTINGPERFORMED BY: LabCore[facility] Hospital6370 [facility] [id number] Phosphorus, Serum 2.8 mg/dL (Normal) Range: 2.5-4.5 :16 MAGNESIUM (86105) Comments: PATIENT WAS FASTINGPERFORMED BY: [facility] Lcswoi4836 [facility] [id number] Magnesium, Serum 1.8 mg/dL (Normal) Range: 1.6-2.3 :16 METABOLIC PANEL, COMPREHENSIVE Comments: PATIENT WAS FASTINGPERFORMED BY: LabGini.net Slnlvt5622 [facility] [id number] (78615) ALT (SGPT) 29 [iU]/L (Normal) Range: 0-32 [...] DIR SMEAR Comments: PATIENT NOT FASTINGPERFORMED BY: Ali Filecubed [facility] [id number] (13758) Result 1 NOCP (Normal) Comments: No ova, cysts, or parasites seen. Ova + Parasite Exam Final report (Normal) Comments: These results were obtained using wet preparation(s) and trichromestained smear. This test does not include testing for Cryptosporidiumparvum, Cyclospora, or Microsporidia. :34 OCCULT BLOOD FECES SCREEN Comments: PATIENT NOT FASTINGPERFORMED BY: Ali Filecubed [facility] [id number] (07080) Occult Blood, Fecal, IA Negative (Normal) :34 LEUKOCYTE COUNT, FECAL (90239) Comments: PATIENT NOT FASTINGPERFORMED BY: [employer] Filecubed [facility] [id number] Result 1 NWBC (Normal) Comments: No white blood cells seen. White Blood Cells (WBC), Final report (Normal) Stool :34 C-DIFFICILE, STOOL (21056) Comments: PATIENT NOT FASTINGPERFORMED BY: Ali Nzzszq4804 [facility] [id number] C difficile Toxins A+B, EIA Negative (Normal) :34 ALFONZO CULTURE-STOOL (71384) Comments: PATIENT NOT FASTINGPERFORMED BY: Ali Zpfuen0490 [facility] [id number] Information: SRC:ST SRC:ST E coli Shiga Toxin EIA Negative (Normal) Result 1 NCI (Normal) Comments: No Campylobacter species isolated. Campylobacter Culture Final report (Normal) Result 1 NSS (Normal) Comments: No Salmonella or Shigella recovered. Salmonella/Shigella Screen Final report (Normal) 41-Vrh-005362:56 Metabolic Panel, Comprehensive Comments: PATIENT NOT FASTINGPERFORMED BY: KSKT6370 [facility] [id number] (62144) ALT (SGPT) 26 [iU]/L (Normal) Range: 0-32 [...] Glucose, Serum 147 mg/dL (Abnormal) Range: 65-99 82-Owh-524389:56 CBC, Platelets & Auto Diff Comments: PATIENT NOT FASTINGPERFORMED BY: KSKT6370 [facility] [id number] (10881) Immature Grans (Abs) 0.1 {x10E3/uL} (Normal) Range: [...] (Normal) Range: 3.4-10.8 :37 URIC ACID BLOOD (17559) Comments: PATIENT WAS FASTINGPERFORMED BY: [facility]6370 [facility] [id number] Uric Acid, Serum 9.1 mg/dL (Abnormal) Range: 2.5-7.1 Comments: Therapeutic target for gout patients: <6.0 :10 METABOLIC PANEL, COMPREHENSIVE (07179) :37 CBC W/AUTO DIFF WBC (74425) Comments: PATIENT WAS FASTINGPERFORMED BY: LabCoCommunity Medical CenterNsywsv3905 [facility] [id number] Hematology Comments: Note: (Normal) Comments: Manual differential [...] 3.77-5.28 WBC 9.4 {x10E3/uL} (Normal) Range: 3.4-10.8 36-Agd-246988:58 Magnesium Comments: [facility] [address] [place], [address] MG 2.0 mg/dL (Normal) Range: 1.8-2.4 Comments: Slight Hemolysis, Result may be falsely increased. 78-Dko-118587:58 Renal Profile Comments: [facility] [address] [place], [address] CO2 27.0 mmol/L (Normal) Range: 21.0-32.0 CL [...] per A.D.A. criteria. :45 URIC ACID BLOOD (16917) Comments: PATIENT NOT FASTINGPERFORMED BY: AliPresbyterian Kaseman HospitalWjqsoc1929 Tappr [facility] [id number] Uric Acid, Serum 9.6 mg/dL (Abnormal) Range: 2.5-7.1 Comments: Therapeutic target for gout patients: <6.0 :45 RENAL FUNCTION PANEL (83864) Comments: PATIENT NOT FASTINGPERFORMED BY: [employer] [facility] Pcziwa4598 [facility]ricsAt[facility] [id number] Albumin, Serum 4.5 g/dL (Normal) Range: 3.6-4.8 [...] 214 mg/dL (Abnormal) Range: 65-99 :24 CALCIFIDIOL (71374) VIT D 25 Comments: PATIENT WAS FASTINGPERFORMED BY: [employer] sofatutor [facility] [id number] Vitamin D, 25-Hydroxy 44.9 ng/mL (Normal) Range: 30.0-100.0 Comments: Vitamin D deficiency has been defined by the [place] ofCommunity Regional Medical Centercine and an Endocrine Society practice guideline as alevel of serum 25-OH vitamin D less than 20 ng/mL (1,2).The Endocrine Society went on to further define vitamin Dinsufficiency as a level between 21 and 29 ng/mL (2).1. IOM ([place]). 2010. Dietary reference intakes for calcium and D. [place]: The National Academies Press.2. Stephon MF, Ana ROY, Alka ROMERO, et al. Evaluation, treatment, and prevention of vitamin D deficiency: an Endocrine Society clinical practice guideline. JCEM. 2010; 96(7):1911-30. :39 HgA1C , Office (17838) HgA1C , Office 7.6 % (Abnormal) Range: 4.6 - 7.1 :39 Blood Glucose , Office (36469) Blood Glucose , Office 174 (Normal) :56 TSH (13978) Comments: PATIENT WAS FASTINGPERFORMED BY: [facility] Qhopxj3134 [facility] [place] [id number] TSH 2.180 {uIU/mL} (Normal) Range: 0.450-4.500 96-Ktt-23148:56 LIPID PANEL (96684) Comments: PATIENT WAS FASTINGPERFORMED BY: [facility] Zpolmt4417 Wu [facility] [id number] LDL/HDL Ratio 1.8 {ratio_units} (Normal) Range: 0.0-3.2 Comments: LDL/HDL Ratio Men Women 1/2 Avg.Risk 1.0 1.5 Av g.Risk 3.6 3.2 2X Avg.Risk 6.2 5.0 3X Avg.Risk 8.0 6.1 LDL Cholesterol Calc 62 mg/dL (Normal) Range: 0-99 VLDL Cholesterol Yamilka 45 mg/dL (Abnormal) Range: 5-40 HDL Cholesterol 35 mg/dL (Abnormal) Triglycerides 226 mg/dL (Abnormal) Range: 0-149 Cholesterol, Total 142 mg/dL (Normal) Range: 100-199 2-Ozo-526027:36 CBC W/Diff, Automated Comments: [facility] [address] [place], [place], [id number] Absolute Lymph 1.31 {X10_3/ul} (Normal) Range: 0.83-4.51 [...] 4.2-5.4 WBC 10.5 K/mm3 (Normal) Range: 4.4-11.0 :36 Magnesium Comments: [facility] [address] [place], [phone] MG 1.9 mg/dL (Normal) Range: 1.8-2.4 :36 Protein+Creatinine Ratio,Urine Comments: [facility] [address] [place], [address] PROT:CRE RATIO 120 {mg/g_CRE} (Normal) Range: 0-200 PROTEIN,UR.RAN. 13.6 mg/dL (Abnormal) UR CREAT 113.00 mg/dL (Normal) 7-Qzv-226025:36 PTH,INTACT Comments: [facility] [address] [place], [address] PTH,Intact 27 pg/mL (Normal) Range: 14-72 2-Lml-733402:36 Renal Profile Comments: [address] [place], [phone] CO2 27.0 mmol/L (Normal) Range: 21.0-32.0 CL [...] criteria. :36 Uric Acid Comments: [facility] [address] [place], [place], [address] URIC 7.5 mg/dL (Abnormal) Range: 2.6-6.0 Comments: The drugs N-Acetylcysteine and Metamizole may falsely deressthis assay. :36 Vitamin D,25 Hydroxy Comments: [facility] [address] [place], [place], [address] Vitamin D 25-OH 33.9 ng/mL (Normal) Comments: Vitamin D 25(OH) Status Range Deficiency <20 ng/mL (50nmol/L) Insuffciency 20 - 30 ng/mL (50 - 75 nmol/L) Sufficiency 30 - 100 ng/mL (75 - 250 nmol/L) Toxicity >100 ng/mL (>250 nmol/L) :24 Renal Profile Comments: [facility] [address] [place], [place], [address] CO2 24.0 mmol/L (Normal) Range: 21.0-32.0 CL [...] Immature Cells Comments: PATIENT WAS FASTINGPERFORMED BY: [employer] [place] [id number] Myelocytes 4 % (Abnormal) Range: 0 - 0 :46 Microscopic Examination Comments: PATIENT WAS FASTINGPERFORMED BY: BetKlub6370 [employer] [place] [id number] Bacteria Few (Normal) Mucus Threads Present (Normal) Crystal Type Calcium Oxalate (Normal) Crystals Present (Abnormal) Epithelial Cells (non renal) 0-10 {/hpf} (Normal) Range: 0 - 10 RBC 3-10 {/hpf} (Abnormal) Range: 0 - 2 WBC 11-30 {/hpf} (Abnormal) Range: 0 - 5 :47 Sputum Culture (91582) Comments: PATIENT NOT FASTINGPERFORMED BY: KarmaKey Pnzhrf3579 [address] [place] [id number] Information: SRC:SP Result 1 RRF (Normal) Comments: Routine respiratory hermelindo Lower Respiratory Culture Final report (Normal) :46 CALCIFEDIOL (15360) Comments: PATIENT WAS FASTINGPERFORMED BY: KarmaKey Ibldif5609 [address] [id number] Vitamin D, 25-Hydroxy 32.4 ng/mL (Normal) Range: 30.0-100.0 Comments: Vitamin D deficiency has been defined by the [place] of[place]icine and an Endocrine Society practice guideline as alevel of serum 25-OH vitamin D less than 20 ng/mL (1,2).The Endocrine Society went on to further define vitamin Dinsufficiency as a level between 21 and 29 ng/mL (2).1. IOM ([place] of [employer]). 2010. Dietary reference intakes for calcium and D. [place]: The National Academies Press.2. Stephon MF, Ana ROY, Alka ROMERO, et al. Evaluation, treatment, and prevention of vitamin D deficiency: an Endocrine Society clinical practice guideline. JCEM. 2010; 96(7):1911-30. :46 Metabolic Panel, Comprehensive Comments: PATIENT WAS FASTINGPERFORMED BY: LabCoCommunity Medical CenterGjqbwd2477 [facility] [id number] (58020) ALT (SGPT) 19 [iU]/L (Normal) Range: 0-32 [...] Glucose, Serum 126 mg/dL (Abnormal) Range: 65-99 :46 CBC WITH MANUAL DIFF Comments: PATIENT WAS FASTINGPERFORMED BY: LabCoCommunity Medical CenterJmvehw0680 [facility] [id number] Information: [id number] (88952) Hematology Comments: Note: (Normal) Comments: Manual differential [...] 14.0 {x10E3/uL} (Abnormal) Range: 3.4-10.8 :46 URINALYSIS (70500) Comments: PATIENT WAS FASTINGPERFORMED BY: LabCoCommunity Medical CenterGiawtj9699 [facility] [id number] Microscopic Examination See below: (Normal) Comments: Microscopic was indicated and was performed. Nitrite, Urine Negative (Normal) Urobilinogen,Semi-Qn 0.2 mg/dL (Normal) Range: 0.2-1.0 Bilirubin Negative (Normal) Occult Blood Negative (Normal) Ketones Negative (Normal) Glucose 2+ (Abnormal) Protein Negative (Normal) WBC Esterase 3+ (Abnormal) Appearance Clear (Normal) Urine-Color Yellow (Normal) pH 6.5 (Normal) Range: 5.0-7.5 Specific [place] 1.022 (Normal) Range: 1.005-1.030 :46 MICROALBUMIN: CREATININE RATIO Comments: PATIENT WAS FASTINGPERFORMED BY: [employer] Filecubed [facility] [id number] (82619) AND (51412) Microalb/Creat Ratio 10.1 {mg/g_creat} (Normal) Range: 0.0-30.0 Microalbumin, Urine 7.3 ug/mL (Normal) Creatinine, Urine 72.6 mg/dL (Normal) :46 TSH (24951) Comments: PATIENT WAS FASTINGPERFORMED BY: Joberator70 [facility] [id number] TSH 2.600 {uIU/mL} (Normal) Range: 0.450-4.500 :46 Lipid Panel (69101) Comments: PATIENT WAS FASTINGPERFORMED BY: [email or web address] Wiajlt7470 [facility] [id number]; has appt 08/20, will review at that [...] Cholesterol, Total 162 mg/dL (Normal) Range: 100-199 64-Zfp-84144:49 HgA1C , Office (01889) HgA1C , Office 6.6 % (Normal) Range: 4.6 - 7.1 :49 Blood Glucose , Office (97033) Blood Glucose , Office 113 (Normal) :10 CBC W/Diff, Automated Comments: [facility] [address] [place], [place], [address] Absolute Lymph 1.40 {X10_3/ul} (Normal) Range: 0.83-4.51 [...] 4.4-11.0 :10 Magnesium Comments: Comments: [facility] [address] [place], [address] MG 1.9 mg/dL (Normal) Range: 1.8-2.4 :10 Protein+Creatinine Ratio,Urine Comments: [facility] [address] [place], [address] PROT:CRE RATIO 112 {mg/g_CRE} (Normal) Range: 0-200 PROTEIN,UR.RAN. 8.1 mg/dL (Normal) UR CREAT 72.10 mg/dL (Normal) :10 PTH,INTACT Comments: [facility] [address] [place], [address] PTH,Intact 29 pg/mL (Normal) Range: 14-72 :10 Renal Profile Comments: Comments: [facility] [address]ot[address] [place], [address] CO2 25.0 mmol/L (Normal) Range: 21.0-32.0 CL [...] :10 Uric Acid Comments: Comments: [facility] [address] [place], [address] URIC 7.1 mg/dL (Abnormal) Range: 2.6-6.0 Comments: The drugs N-Acetylcysteine and Metamizole may falsely deressthis assay. 20-Snv-837278:10 Vitamin D,25 Hydroxy Comments: [facility] [address] [place], [address] Vitamin D 25-OH 35.5 ng/mL (Normal) Comments: Vitamin D 25(OH) Status Range Deficiency <20 ng/mL (50nmol/L) Insuffciency 20 - 30 ng/mL (50 - 75 nmol/L) Sufficiency 30 - 100 ng/mL (75 - 250 nmol/L) Toxicity >100 ng/mL (>250 nmol/L) 74-Qhe-759967:10 CALCIUM SERUM (32697) Comments: PATIENT NOT FASTINGPERFORMED BY: [facility] Jhgact1673 [facility] [id number] Information: [id number] Calcium, Serum 10.3 mg/dL (Normal) Range: 8.7-10.3 76-Sur-271028:10 MAGNESIUM (45033) Comments: PATIENT NOT FASTINGPERFORMED BY: [facility] Otzxqr0184 [facility] [id number] Magnesium, Serum 2.1 mg/dL (Normal) Range: 1.6-2.3 5-Ymq-527082:14 Bedside Glucose Comments: [facility] LaboratoryPoint of Wsed[address] [place] [address] BEDSIDE GLU 110 mg/dL (Normal) Range: 70-110 Comments: MANAGEMENT OF PATIENT CARE PER NURSING PROTOCOL :26 Metabolic Panel, Basic Comments: PATIENT NOT FASTINGPERFORMED BY: LabCoCommunity Medical CenterTgydfy0531 [facility] [id number] Information: [id number]; will review on 06/04 (33845) Calcium, Serum 10.0 mg/dL (Normal) Range: 8.7-10.3 [...] 65-99 :39 Magnesium Comments: ORDERED CA AND PTHINDR.LUZ ORDERED CBC PTHIN RENAL VITD CRE/PROURIC [facility] [address] [place], [address] MG 2.0 mg/dL (Normal) Range: 1.8-2.4 :39 Protein+Creatinine Ratio,Urine Comments: [facility] [address] [place], [address] PROT:CRE RATIO 188 {mg/g_CRE} (Normal) Range: 0-200 PROTEIN,UR.RAN. < 6.0 mg/dL (Normal) UR CREAT 29.80 mg/dL (Normal) :39 PTH,INTACT Comments: [facility] [address] [place], [address] PTH,Intact 53 pg/mL (Normal) Range: 14-72 :39 Renal Profile Comments: ORDERED CA AND PTHINDR.LUZ ORDERED CBC PTHIN RENAL VITD CRE/PROURIC [facility] [address] [place], [address] CO2 22.0 mmol/L (Normal) Range: 21.0-32.0 CL [...] 200 mg/dLsuggests DIABETES MELLITUS per A.D.A. criteria. 62-Fkn-627167:39 Uric Acid Comments: ORDERED CA AND PTHINDRLUDA ORDERED CBC PTHIN RENAL VITD CRE/PROURIC [facility] Oulkujlxfn0945 [facility] [place], [address] URIC 7.3 mg/dL (Abnormal) Range: 2.6-6.0 Comments: The drugs N-Acetylcysteine and Metamizole may falsely deressthis assay. :39 Vitamin D,25 Hydroxy Comments: [facility] Tzmgibfdlp5544 [facility] [address] [place], [place], [address] Vitamin D 25-OH 52.3 ng/mL (Normal) Comments: Vitamin D 25(OH) Status Range Deficiency <20 ng/mL (50nmol/L) Insuffciency 20 - 30 ng/mL (50 - 75 nmol/L) Sufficiency 30 - 100 ng/mL (75 - 250 nmol/L) Toxicity >100 ng/mL (>250 nmol/L) :09 URINE CALCIUM KAITLIN TIMED Comments: PATIENT NOT FASTINGPERFORMED BY: LabCoCommunity Medical CenterXefrkg0503 [facility] [id number] Information: [id number] START @6AM FINISH 05/05/16@ 6AM (24971) Calcium, Urine 24hr 45.0 {mg/24_hr} (Abnormal) Range: 100.0-300.0 Calcium, Urine 1.8 mg/dL (Normal) 02-May-20169:30 Fecal Occult Blood , Office (48090) Fecal Occult Blood , Office (Inhouse) negative (Normal) 15-Xbv-637040:23 Crystals, Body Fluid Comments: [facility] [address] [place], [place], [address] PATH REV Reviewed (Normal) Comments: Negative for malignant cells.Mixture of calcium pyrophosphate (pseudogout) crystals andnondescript crystals are noted.Johnson Castro M.D. 04/29/16 SOURCE/BF SYNOVIAL (Normal) CRYSTALS/BF SEE PATH REV (Normal) [id number]-Jam-[id number]:23 Culture, Body Fluid Comments: [facility] [address] [place], [place], [address] CUBF See Note (Normal) Comments: List Antibiotics Last 48 Hours? UNKList Antibiotics to be Started? UNKGram StainCentrifuged Specimen? Culture performed on centrifuged specimen Gram Stain Rare Red Cell Stroma Rare Red Blood Cells No organisms seen Body Fluid CultNO GROWTH IN 14 DAYS Cult, AnaerobicNo growth in 5 days. 45-Jkb-210177:23 GLUCOSE, SYNOVIAL FLUID Comments: ORDERED WRONGSpecimen Source: [...] be integrated into the clinical contextfor interpretation. 95-Gdw-384998:23 Synovial Fluid RBC, WBC AND Comments: [facility] [address] [place], [place], [address] Diff PATH COM/SYFL March (Normal) OTHER CELL [...] VISCOSITY/SYFL Sl. Viscous (Normal) :58 CALCIUM SERUM (32742) Comments: PATIENT NOT FASTINGPERFORMED BY: [facility] Dfivro1903 [facility] [id number] Information: [id number] Calcium, Serum 10.6 mg/dL (Abnormal) Range: 8.7-10.3 :10 Microscopic Examination Comments: PATIENT WAS FASTINGPERFORMED BY: [facility] Mrvxlr8801 Wu RoadDublin [place] [id number] Bacteria None seen (Normal) Mucus Threads Present (Normal) Epithelial Cells (non renal) 0-10 {/hpf} (Normal) Range: 0 - 10 RBC None seen {/hpf} (Normal) Range: 0 - 2 WBC 0-5 {/hpf} (Normal) Range: 0 - 5 :10 CALCIFIDIOL (86323) VIT D 25 Comments: PATIENT WAS FASTINGPERFORMED BY: [employer] Fvyper8698 Wu RoadDublin [place] [id number] Vitamin D, 25-Hydroxy 63.0 ng/mL (Normal) Range: 30.0-100.0 Comments: Vitamin D deficiency has been defined by the [place] ofCommunity [facility] Medical Centercine and an Endocrine Society practice guideline as alevel of serum 25-OH vitamin D less than 20 ng/mL (1,2).The Endocrine Society went on to further define vitamin Dinsufficiency as a level between 21 and 29 ng/mL (2).1. IOM ([place] of Medicine). 2010. Dietary reference intakes for calcium and D. [place]: The National Academies Press.2. Stephon MF, Ana NC, Alka ROMERO, et al. Evaluation, treatment, and prevention of vitamin D deficiency: an Endocrine Society clinical practice guideline. JCEM. 2010; 96(7):1911-30. :10 TSH (68028) Comments: PATIENT WAS FASTINGPERFORMED BY: [facility] Brogsq5687 Wu RoadDublin [place] [id number] TSH 2.680 {uIU/mL} (Normal) Range: 0.450-4.500 :10 URINALYSIS, W/ MICRO (38951) Comments: PATIENT WAS FASTINGPERFORMED BY: [facility] Xqimty38[address] Wu RoadDublin [place] [id number] Microscopic Examination See below: (Normal) Comments: Microscopic was indicated and was performed. Microscopic Examination MICRON (Normal) Comments: Microscopic follows if indicated. Nitrite, Urine Negative (Normal) Urobilinogen,Semi-Qn 0.2 mg/dL (Normal) Range: 0.2-1.0 Bilirubin Negative (Normal) Occult Blood Negative (Normal) Ketones Negative (Normal) Glucose 3+ (Abnormal) Protein Negative (Normal) WBC Esterase Negative (Normal) Appearance Clear (Normal) Urine-Color Yellow (Normal) pH 6.5 (Normal) Range: 5.0-7.5 Specific [place] 1.022 (Normal) Range: 1.005-1.030 :10 MICROALBUMIN: CREATININE RATIO Comments: PATIENT WAS FASTINGPERFORMED BY: MuciMedUNC [facility] [id number] (98667) AND (63387) Microalb/Creat Ratio 20.5 {mg/g_creat} (Normal) Range: 0.0-30.0 Microalbumin, Urine 20.1 ug/mL (Normal) Comments: Please note reference interval change Creatinine, Urine 97.9 mg/dL (Normal) Comments: Please note reference interval change :10 LIPID PANEL (70216) Comments: PATIENT WAS FASTINGPERFORMED BY: MuciMedUNC [facility] [id number] LDL/HDL Ratio 2.0 {ratio_units} (Normal) Range: 0.0-3.2 [...] PANEL, COMPREHENSIVE Comments: PATIENT WAS FASTINGPERFORMED BY: MuciMedUNC Health [facility] [id number]; will review on 04.18 (41454) ALT (SGPT) 18 [iU]/L (Normal) Range: 0-32 [...] Glucose, Serum 143 mg/dL (Abnormal) Range: 65-99 99-Sba-99553:10 CBC W/AUTO DIFF WBC Comments: PATIENT WAS FASTINGPERFORMED BY: [facility] Lalehg2434 [facility] [id number] Information: [id number] (49892) Immature Grans (Abs) 0.0 {x10E3/uL} (Normal) Range: [...] 3.77-5.28 WBC 7.8 {x10E3/uL} (Normal) Range: 3.4-10.8 26-Taz-943453:02 HgA1C , Office (99943) HgA1C , Office 6.6 % (Normal) Range: 4.6 - 7.1 86-Vfn-303336:02 Blood Glucose , Office (91583) Blood Glucose , Office 142 (Normal) 33-Ejj-982547:20 Nuab Vaginitis Plus Comments: PATIENT NOT FASTINGPERFORMED BY: [address] [id number] Information: [id number] (STD W/O Herpes) (77267) Neisseria gonorrhoeae, YAIR Negative (Normal) Chlamydia trachomatis, YAIR Negative (Normal) Trich vag by YAIR Negative (Normal) Yana glabrata, YAIR Negative (Normal) Comments: This test was developed and its performance characteristics determinedby [facility]. It has not been cleared or approved [...] [facility]. It has not been cleared or appro tima by the Food and DrugAdministration. The FDA has determined that such clearance orapproval is not necessary. BVAB 2 Low - 0 {Score} (Normal) Atopobium vaginae Low - 0 {Score} (Normal) :56 Magnesium Comments: Test performed at:[facility] [address] [place] [address] MG 2.2 mg/dL (Normal) Range: 1.8-2.4 :56 Protein+Creatinine Ratio,Urine Comments: Test performed at:[facility] [address] [place] [address] PROT:CRE RATIO 440 {mg/g_CRE} (Abnormal) Range: 0-200 PROTEIN,UR.RAN. 8.1 mg/dL (Normal) UR CREAT 18.20 mg/dL (Normal) :56 Renal Profile Comments: Test performed at:[facility] [address] [place] [address] CO2 28.0 mmol/L (Normal) Range: 21.0-32.0 CL [...] Comments: Please note revised CREATININE reference range wwzswbwak46/22/2015. BUN 44 mg/dL (Abnormal) Range: 7-18 GLU 186 mg/dL (Abnormal) Range: 70-110 Comments: Fasting Glucose result greater than or equal to 126 mg/dLsuggests DIABETES MELLITUS per A.D.A. criteria. :56 Uric Acid Comments: Test performed at:[facility] Puuwgysqkj1614 [facility] [place] [address] URIC 6.5 mg/dL (Abnormal) Range: 2.6-6.0 :56 Vitamin D,25 Hydroxy Comments: Test performed at:[facility] Rxlrhswkjj[address] [facility] [place] [address] Vitamin D 25-OH 67.0 ng/mL (Normal) Comments: Vitamin D 25(OH) Status Range Deficiency <20 ng/mL (50nmol/L) Insuffciency 20 - 30 ng/mL (50 - 75 nmol/L) Sufficiency 30 - 100 ng/mL (75 - 250 nmol/L) Toxicity >100 ng/mL (>250 nmol/L) 73-Wlf-600557:01 Rapid Strep Test, Office (96835) Rapid Strep Test, Office Negative (Normal) :21 HgA1C , Office (53272) HgA1C , Office 6.4 % (Normal) Range: 4.6 - 7.1 :21 Blood Glucose , Office (08716) Blood Glucose , Office 167 (Normal) :01 Microscopic Examination Comments: PATIENT WAS FASTINGPERFORMED BY: LabCoCommunity Medical CenterNpfpam2847 [facility] [id number] Bacteria Few (Normal) Mucus Threads Present (Normal) Epithelial Cells (non renal) 0-10 {/hpf} (Normal) Range: 0 - 10 RBC 0-2 {/hpf} (Normal) Range: 0 - 2 WBC 6-10 {/hpf} (Abnormal) Range: 0 - 5 5-Pms-791323:50 Antinuclear Antibodies Direct Comments: PATIENT NOT FASTINGPERFORMED BY: [facility]6370 [facility] [id number] HEIDI Direct Negative (Normal) : C-Reactive Protein, 7.3 mg/L (Abnormal) Comments: PATIENT NOT FASTINGPERFORMED BY: [facility]6370 [facility] [id number] 50 Quant Range: 0.0-4.9 :50 CBC, Platelet, No Differential Comments: PATIENT NOT FASTINGPERFORMED BY: [facility]6370 [facility] [id number] Platelets 253 {x10E3/uL} (Normal) Range: 150-379 RDW [...] Panel (14) Comments: PATIENT NOT FASTINGPERFORMED BY: [facility]6370 [facility] [id number] Information: [id number] ALT (SGPT) 17 [iU]/L (Normal) Range: 0-32 [...] ng/mL (Normal) Comments: PATIENT NOT FASTINGPERFORMED BY: [employer] Live70 [facility]oPediactricsAtrium Health [facility] [id number] Serum Comments: A serum folate concentration of less than 3.1 ng/mL isconsidered to represent clinical deficiency. :50 Rheumatoid Arthritis Factor Comments: PATIENT NOT FASTINGPERFORMED BY: Ali Qhuphl4650 [address] [facility] HospitalYouMailUNC Health [facility] [id number] RA Latex Turbid. 10.5 {IU/mL} Range: 0.0-13.9 (Normal) Sedimentation 7 mm/h (Normal) Comments: PATIENT NOT FASTINGPERFORMED BY: Ali Xburez5721 [address] [facility] HospitalYouMailUNC Health [facility] [id number] :50 Rate-Westergren Range: 0-40 TSH 2.450 {uIU/mL} Comments: PATIENT NOT FASTINGPERFORMED BY: Ali Kruhgr0101 [facility] [id number] :50 (Normal) Range: 0.450-4.500 Vitamin B12 1684 pg/mL Comments: PATIENT NOT FASTINGPERFORMED BY: [facility] Zzqnky5174 [facility] [id number] :50 (Abnormal) Range: 211-946 Vitamin D, 25-Hydroxy 75.1 ng/mL Comments: PATIENT NOT FASTINGPERFORMED BY: [facility] Olsdfp8569 [facility] [place] [id number] :50 (Normal) Range: 30.0-100.0 Comments: Vitamin D deficiency has been defined by the [place] of[place]icine and an Endocrine Society practice guideline as alevel of serum 25-OH vitamin D less than 20 ng/mL (1,2).The Endocrine Society went on to further define vitamin Dinsufficiency as a level between 21 and 29 ng/mL (2).1. IOM ([place] of Medicine). 2010. Dietary reference intakes for calcium and D. [place]: The National Academies Press.2. Stephon MF, Ana ROY, Alka ROMERO, et al. Evaluation, treatment, and prevention of vitamin D deficiency: an Endocrine Society clinical practice guideline. JCEM. 2010; 96(7):1911-30. :57 Lower Respiratory Culture Comments: PATIENT NOT FASTINGPERFORMED BY: [facility] Iehgwa5561 [facility] [id number] Information: SRC:[facility] [id number] Result 1 RRF (Normal) Comments: Routine respiratory hermelindo Lower Respiratory Culture Final report (Normal) :01 MICROALBUMIN: CREATININE RATIO Comments: PATIENT WAS FASTINGPERFORMED BY: [facility] Hcrjyc8658 [facility] [id number] (06333) AND (70490) Microalb/Creat Ratio 22.8 {mg/g_creat} (Normal) Range: 0.0-30.0 Microalbumin, Urine 18.8 ug/mL (Abnormal) Range: 0.0-17.0 Creatinine, Urine 82.6 mg/dL (Normal) Range: 15.0-278.0 :01 URINALYSIS (90123) Comments: PATIENT WAS FASTINGPERFORMED BY: [facility]6370 [facility] [id number] Microscopic Examination See below: (Normal) Comments: Microscopic was indicated and was performed. Nitrite, Urine Negative (Normal) Urobilinogen,Semi-Qn 0.2 mg/dL (Normal) Range: 0.0-1.9 Bilirubin Negative (Normal) Occult Blood Negative (Normal) Ketones Negative (Normal) Glucose 2+ (Abnormal) Protein Negative (Normal) WBC Esterase Trace (Abnormal) Appearance Clear (Normal) Urine-Color Yellow (Normal) pH 6.5 (Normal) Range: 5.0-7.5 Specific [place] 1.020 (Normal) Range: 1.005-1.030 15-Fqu-08505:01 Metabolic Panel, Comments: PATIENT WAS FASTINGPERFORMED BY: VLST CorporationCommunity Medical CenterTrytok9562 [facility] [id number] Information: [id number], [id number] Comprehensive (79905) ALT (SGPT) 17 [iU]/L (Normal) Range: 0-32 [...] 110 mg/dL (Abnormal) Range: 65-99 :01 CALCIFEDIOL (64935) Comments: PATIENT WAS FASTINGPERFORMED BY: LabCoCommunity Medical CenterCtctsh3462 [facility] [id number] Vitamin D, 25-Hydroxy 101.0 ng/mL (Abnormal) Range: 30.0-100.0 Comments: Vitamin D deficiency has been defined by the [place] of[place]icine and an Endocrine Society practice guideline as alevel of serum 25-OH vitamin D less than 20 ng/mL (1,2).The Endocrine Society went on to further define vitamin Dinsufficiency as a level between 21 and 29 ng/mL (2).1. IOM ([place] of Medicine). 2010. Dietary reference intakes for calcium and D. [place]: The National Academies Press.2. Stephon MF, Ana ROY, Alka ROMERO, et al. Evaluation, treatment, and prevention of vitamin D deficiency: an Endocrine Society clinical practice guideline. JCEM. 2010; 96(7):1911-30. :01 Lipid Panel (65564) Comments: PATIENT WAS FASTINGPERFORMED BY: [facility] Wcxqbs0053 [facility] [id number] LDL/HDL Ratio 1.4 {ratio_units} (Normal) Range: 0.0-3.2 [...] (Normal) Range: 100-199 :06 HgA1C , Office (32071) HgA1C , Office 6.4 % (Normal) Range: 4.6 - 7.1 :06 Blood Glucose , Office (64683) Blood Glucose , Office 168 (Normal) :43 CBC W/Diff, Automated Comments: Test performed at:[facility] Egefxepdjq3491 [facility]. [place], [place] [address] Absolute Lymph 1.33 {X10_3/ul} (Normal) Range: 0.83-4.51 [...] :43 Magnesium Comments: Test performed at:[facility] [address] [place] [address] MG 1.6 mg/dL (Abnormal) Range: 1.8-2.4 :43 Protein+Creatinine Ratio,Urine Comments: Test performed at:[facility] [address]wh[address] [address] PROT:CRE RATIO 143 {mg/g_CRE} (Normal) Range: 0-200 PROTEIN,UR.RAN. 16.0 mg/dL (Abnormal) UR CREAT 111.6 mg/dL (Normal) :43 Renal Profile Comments: Test performed at:[facility] [address] [place] [address] CO2 29.0 mmol/L (Normal) Range: 21.0-32.0 CL [...] Uric Acid Comments: Test performed at:[facility] [address] [address] URIC 7.5 mg/dL (Abnormal) Range: 2.6-6.0 :43 Vitamin D,25 Hydroxy Comments: Test performed at:[facility] [address]iu[address] [address] Vitamin D 25-OH 48.0 ng/mL (Normal) Comments: Vitamin D 25(OH) Status Range Deficiency <20 ng/mL (50nmol/L) Insuffciency 20 - 30 ng/mL (50 - 75 nmol/L) Sufficiency 30 - 100 ng/mL (75 - 250 nmol/L) Toxicity >100 ng/mL (>250 nmol/L) :16 HgA1C , Office (63641) HgA1C , Office 5.6 % (Normal) Range: 4.6 - 7.1 :16 Blood Glucose , Office (46791) Blood Glucose , Office 113 (Normal) :35 CALCIUM SERUM (43199) Comments: PATIENT NOT FASTINGPERFORMED BY: [address] [id number] Information: [id number] Calcium, Serum 10.0 mg/dL (Normal) Range: 8.6-10.2 :55 HEIDI Negative (Normal) Comments: Performed at: [address] [id number] Director: Taurus Morrissey MD, Phone: [phone] :55 CBCD ALC 1.15 {X10_3/ul} (Normal) Range: [...] HEBSAG ttHEBSAG Negative (Normal) Comments: Performed at: [address] [id number] Director: Taurus Morrissey MD, Phone: [phone] at: [address] [id number] 1Lab Director: Juan Carlos Mathew MD, Phone: [phone] :[phone] HECAB tHECAB 0.1 {s/co_ratio} (Normal) Range: 0.0-0.9 Comments: Negative: < 0.8Indeterminate 0.8 - 0.9Positive: > 0.9In order to reduce the incidence of a false positiveresult, the CDC recommends that all s/co ratiosbetween 1.0 and 10.9 be confirmed by a more specificsupplemental or PCR testing. [facility] offers HCV Abw/Reflex to Verification test #[id number]. :55 RF < 10.0 {IU/mL} (Normal) :55 SED tSEDRATE 7 mm/h (Normal) Range: 0-30 :55 VITD 45.5 mg/mL (Normal) Comments: Vitamin D 25(OH) Status RangeDeficiency <20 ng/mL (50nmol/L)Insuffciency 20 - 30 ng/mL (50 - 75 nmol/L)Sufficiency 30 - 100 ng/mL (75 - 250 nmol/L)Toxicity >100 ng/mL (>250 nmol/L) :05 CALCIFEDIOL (30270) Comments: PATIENT NOT FASTINGPERFORMED BY: [facility]6370 [facility] [id number] Information: [id number] Vitamin D, 25-Hydroxy 34.1 ng/mL (Normal) Range: 30.0-100.0 Comments: Vitamin D deficiency has been defined by the [place] of[place]icine and an Endocrine Society practice guideline as alevel of serum 25-OH vitamin D less than 20 ng/mL (1,2).The Endocrine Society went on to further define vitamin Dinsufficiency as a level between 21 and 29 ng/mL (2).1. IOM ([place] of [place]). 2010. Dietary reference intakes for calcium and D. [place]: The National [employer] Press.2. Stephon MF, Ana ROY, Alka ROMERO, et al. Evaluation, treatment, and prevention of vitamin D deficiency: an Endocrine Society clinical practice guideline. JCEM. 2010; 96(7):1911-30. :05 CALCIUM SERUM (98795) Comments: PATIENT NOT FASTINGPERFORMED BY: [facility]Core[facility]6370 [facility] [id number] Calcium, Serum 10.3 mg/dL (Abnormal) Range: 8.6-10.2 43-Ohr-243459:43 CALCIFIDIOL (05179) VIT D Comments: PATIENT NOT FASTINGPERFORMED BY: LabCorewell [facility]6370 [facility] [id number] Information: [id number] 25 Vitamin D, 25-Hydroxy 44.7 ng/mL (Normal) Range: 30.0-100.0 Comments: Vitamin D deficiency has been defined by the [place] of[place]icine and an Endocrine Society practice guideline as alevel of serum 25-OH vitamin D less than 20 ng/mL (1,2).The Endocrine Society went on to further define vitamin Dinsufficiency as a level between 21 and 29 ng/mL (2).1. IOM ([place] Medicine). 2010. Dietary reference intakes for calcium and D. [place]: The National [employer].2. Stephon MF, Ana ROY, Alka ROMERO, et al. Evaluation, treatment, and prevention of vitamin D deficiency: an Endocrine Society clinical practice guideline. JCEM. 2010; 96(7):1911-30. 44-Jvq-523768:36 URINE CALCIUM KAITLIN TIMED Comments: PATIENT NOT FASTINGPERFORMED BY: [employer] Live70 RealDirectUNC Health Johnston Clayton [id number] Information: [id number] 1950ML START 05/21@630AM FINISH 05/22/14@6 30AM 24 Hour (37608) Calcium, Urine 24hr 93.6 {mg/24_hr} (Abnormal) Range: 100.0-300.0 Calcium, Urine 4.8 mg/dL (Normal) 55-Oap-197292:43 PARATHORMONE (34222) Comments: PATIENT NOT FASTINGPERFORMED BY: BetKlub6370 RealDirectUNC Health Johnston Clayton [id number] PTH, Intact 22 pg/mL (Normal) Range: 15-65 :56 Metabolic Panel, Basic Comments: drawn next ; PATIENT NOT FASTINGPERFORMED BY: [employer] Ulsfkj5943 RealDirectUNC Health Johnston Clayton [id number] Information: [id number] (11693) Calcium, Serum 10.5 mg/dL (Abnormal) Range: 8.6-10.2 Carbon Dioxide, Total 22 mmol/L (Normal) Range: 19-28 Comments: Effective May 15, 2014, the reference interval for Carbon Dioxide, Total will be changing to: 0 - 30 days 15 - 31 d - 5 months - [...] Glucose, Serum 113 mg/dL (Abnormal) Range: 65-99 9-Zpi-140854:50 METABOLIC PANEL, Comments: PATIENT NOT FASTINGPERFORMED BY: PRATIMA [facility] Whnsmq[address] [place] [place] [id number] Information: [id number] COMPREHENSIVE (40044) ALT (SGPT) 22 [iU]/L (Normal) Range: 0-32 [...] 15 - 31 d - 5 months - [...] (Abnormal) Range: 65-99 :13 HgA1C , Office (94741) HgA1C , Office 6.5 % (Normal) Range: 4.6 - 7.1 :13 Blood Glucose , Office (34903) Blood Glucose , Office 163 (Normal) :41 [...] CREATININE RATIO Comments: PATIENT WAS FASTINGPERFORMED BY: LabCoCommunity Medical CenterSuebyt6376 [facility] [id number] (45241) AND (53438) Microalb/Creat Ratio 6.2 {mg/g_creat} (Normal) Range: 0.0-30.0 Microalbumin, Urine 2.2 ug/mL (Normal) Range: 0.0-17.0 Creatinine, Urine 35.7 mg/dL (Normal) Range: 15.0-278.0 :38 URINALYSIS (59681) Comments: PATIENT WAS FASTINGPERFORMED BY: BetKlub6370 [address] [facility] [id number] Microscopic Examination MICRON (Normal) Comments: Microscopic follows if indicated. Nitrite, Urine Negative (Normal) Urobilinogen,Semi-Qn 0.2 mg/dL (Normal) Range: 0.0-1.9 Bilirubin Negative (Normal) Occult Blood Negative (Normal) Ketones Negative (Normal) Glucose Negative (Normal) Protein Negative (Normal) WBC Esterase Negative (Normal) Appearance Clear (Normal) Urine-Color Yellow (Normal) pH 7.5 (Normal) Range: 5.0-7.5 Specific [place] 1.010 (Normal) Range: 1.005-1.030 :38 CALCIFEDIOL (52503) Comments: PATIENT WAS FASTINGPERFORMED BY: BetKlub6370 [facility] [id number] Vitamin D, 25-Hydroxy 44.7 ng/mL (Normal) Range: 30.0-100.0 Comments: Vitamin D deficiency has been defined by the [place] of[place]icine and an Endocrine Society practice guideline as alevel of serum 25-OH vitamin D less than 20 ng/mL (1,2).The Endocrine Society went on to further define vitamin Dinsufficiency as a level between 21 and 29 ng/mL (2).1. IOM ([place] of Medicine). 2010. Dietary reference intakes for calcium and D. [place]: The National Academies Press.2. Stephon MF, Ana NC, Alka ROMERO, et al. Evaluation, treatment, and prevention of vitamin D deficiency: an Endocrine Society clinical practice guideline. JCEM. 2010; 96(7):1911-30. :38 TSH (81269) Comments: PATIENT WAS FASTINGPERFORMED BY: [employer] Xqmaaw1312 [facility] [id number] TSH 2.930 {uIU/mL} (Normal) Range: 0.450-4.500 :38 CBC with manual diff Comments: PATIENT WAS FASTINGPERFORMED BY: PRATIMA [employer] sofatutor [facility] [id number] Information: [id number] (35571) Immature Grans (Abs) 0.0 {x10E3/uL} (Normal) Range: [...] Panel, Comprehensive Comments: PATIENT WAS FASTINGPERFORMED BY: PRATIMA WorldAPPblin [place] [id number] (35191) ALT (SGPT) 22 [iU]/L (Normal) Range: 0-32 [...] Glucose, Serum 92 mg/dL (Normal) Range: 65-99 23-Orx-03615:38 Lipid Panel (54475) Comments: PATIENT WAS FASTINGPERFORMED BY: PRATIMA [facility] Zbbofn4152 [facility] [id number] LDL/HDL Ratio 1.2 {ratio_units} (Normal) Range: 0.0-3.2 LDL Cholesterol Calc 53 mg/dL (Normal) Range: 0-99 VLDL Cholesterol Yamilka 27 mg/dL (Normal) Range: 5-40 HDL Cholesterol 45 mg/dL (Normal) Comments: According to ATP-III Guidelines, HDL-C >59 mg/dL is considered anegative risk factor for CHD. Triglycerides 135 mg/dL (Normal) Range: 0-149 Cholesterol, Total 125 mg/dL (Normal) Range: 100-199 69-Qbj-81016:05 LIPID PANEL (50604) Comments: PATIENT WAS FASTINGPERFORMED BY: PRATIMA [facility] Asadpx2986 [address] [facility] [id number] Information: [id number] LDL/HDL Ratio 1.6 {ratio_units} (Normal) Range: 0.0-3.2 LDL Cholesterol Calc 76 mg/dL (Normal) Range: 0-99 VLDL Cholesterol Yamilka 30 mg/dL (Normal) Range: 5-40 HDL Cholesterol 49 mg/dL (Normal) Comments: According to ATP-III Guidelines, HDL-C >59 mg/dL is considered anegative risk factor for CHD. Triglycerides 148 mg/dL (Normal) Range: 0-149 Cholesterol, Total 155 mg/dL (Normal) Range: 100-199 88-Cmb-726291:43 FECAL OCCULT HGB ASSAY- tubes sent home (27897) FECAL OCCULT HGB ASSAY, QUAL, 1-3 SIMULTANEOU negative (Normal) 81-Gfx-403532:40 Nuclear Stress Test Radiology Report See Note [...] The patient was injected with 31.6 mCi scDo26u Cardiolite and subsequently stress SPECT Cardiolite nuclear [...] on 07/29/13 1340 by Wiliam MASON by Yosi Merchant MD on 07/29/13 1751 Sign by: Yosi Merchant MD 92-Ozf-98712:52 KNEE 1 OR 2 VIEWS Radiology Report [...] Ferguson M.D.July 29, 2013 at 5:00:35 PM [phone] Signed RU/RU If you are the referring phys ician and would like to consult with theradiologist who provided this interpretation, please contact Alejandro Horton at [phone]. If this radiologist is unavailable, youwillbe directed to [facility] radiologist to assist. If you are a patient with a question regarding this report, pleasecontactyour referring physician directly. Professional Interpretation Provided By: [employer], Phone , These documents contain legally protected [...] on 07/29/131714 Si gn by: Ag Ferguson 32-Eps-90616:52 KNEE 1 OR 2 VIEWS Radiology Report [...] Ferguson M.D.July 29, 2013 at 5:02:45 PM [phone] Signed RU/RU If you are the referring physician and would like to consult with therad iologist who provided this interpretation, please contact Alejandro Horton at [phone]. If this radiologist is unavailable, youwillbe directed to another radiologist to assist. If you are a sandra ent with a question regarding this report, pleasecontactyour referring physician directly. Professional Interpretation Provided By: [employer], Phone , These documents con tain legally [...] Ferguson on 07/29/131716 Sign by: Ag Ferguson 79-Lxe-169775:27 CCP ANTIBODY (26386) Comments: PATIENT NOT FASTINGPERFORMED BY: CB [facility] Snxvpj3829 [facility] [id number] BY: [address] [id number] CCP Antibodies IgG/IgA 5 {units} (Normal) Range: 0-19 Comments: Negative <20 Weak positive 20 - 39 Moderate positive 40 - 59 Strong positive >59 24-Tje-242010:27 SED RATE ERYTHROCYTE Comments: PATIENT NOT FASTINGPERFORMED BY: [place] 2678970 [facility] [id number] BY: [address] [id number] (39428) Sedimentation Rate-Westergren 2 mm/h (Normal) Range: 0-40 89-Yht-267408:27 C-REACTIVE PROTEIN Comments: PATIENT NOT FASTINGPERFORMED BY: [address] [id number] BY: [address] [id number] (28606) C-Reactive Protein, Quant 2.1 mg/L (Normal) Range: 0.0-4.9 36-Vto-351817:27 TSH (15613) Comments: PATIENT NOT FASTINGPERFORMED BY: Publish2[place] 9396770 [facility] [id number] BY: [address] [id number] TSH 1.630 {uIU/mL} (Normal) Range: 0.450-4.500 02-Kkh-012967:27 RHEUMATOID FACTOR-QUANT Comments: PATIENT NOT FASTINGPERFORMED BY: [place] 2678970 [facility] [id number] BY: [address] [id number] (90834) RA Latex Turbid. 9.7 {IU/mL} (Normal) Range: 0.0-13.9 03-Lot-490980:27 HEIDI (ANTINUCLEAR ANTIBODY) Comments: PATIENT NOT FASTINGPERFORMED BY: [place] [id number] [facility] [id number] BY: [address] [place] [id number] (70306) HEIDI Direct Negative (Normal) 16-Xyr-485717:27 CBC WITH MANUAL DIFF Comments: PATIENT NOT FASTINGPERFORMED BY: PRATIMA [facility] Ejngwu4294 [address] [place] [id number] BY: [facility] Bosvvdkzjw2034 [facility] [id number] Inf ormation: [id number] (21071) Immature Grans (Abs) 0.0 {x10E3/uL} (Normal) Range: [...] 3.77-5.28 WBC 8.5 {x10E3/uL} (Normal) Range: 4.0-10.5 :27 METABOLIC PANEL, Comments: PATIENT NOT FASTINGPERFORMED BY: CB [facility] Uihmyy4700 [address] [place] [id number] BY: BN [facility] Sysscrbwst4252 [facility] [id number] COMPREHENSIVE (92848) ALT (SGPT) 24 [iU]/L (Normal) Range: 0-32 [...] (Normal) Range: 65-99 :22 HgA1C , Office (77089) HgA1C , Office 5.9 % (Normal) Range: 4.6 - 7.1 :22 Blood Glucose , Office (20911) Blood Glucose , Office 148 (Normal) Comments: non fasting 1-Hxh-431234:44 MAGNESIUM (17803) Comments: copy to dr jose mayes; PATIENT NOT FASTINGPERFORMED BY: [facility]6370 [facility] [id number] Magnesium, Serum 2.0 mg/dL (Normal) Range: 1.6-2.6 :44 Metabolic Panel, Basic Comments: copy to dr jose Mayes; PATIENT NOT FASTINGPERFORMED BY: [facility]6370 [facility] [id number] Information: [id number] (80936) Calcium, Serum 10.1 mg/dL (Normal) Range: 8.6-10.2 [...] Glucose, Serum 141 mg/dL (Abnormal) Range: 65-99 30-Mwl-328653:10 PTT (Activated Partial Comments: PATIENT NOT FASTINGPERFORMED BY: [facility]6370 [facility] [id number] Thromboplastin Time) (09376) aPTT 30 {sec} (Normal) Range: 24-33 Comments: This test has not been validated for monitoring unfractionated heparintherapy. aPTT-based therapeutic ranges for unfractionated heparintherapy have not been established. For general guidelines onHeparin monitoring, refer to the [facility] Directory of Services. 01-Okz-024376:10 PT (Prothrobim Time) Comments: PATIENT NOT FASTINGPERFORMED BY: [facility]6370 [facility] [id number] Information: [id number] (08175) Prothrombin Time 10.4 {sec} (Normal) Range: 9.1-12.0 INR 1.0 (Normal) Range: 0.8-1.2 Comments: Reference interval is for non-anticoagulated patients. . Suggested INR therapeutic range for Vitamin K anta gonist therapy: Standard Dose (moderate intensity therapeutic range): 2.0 - 3.0 Higher intensity therapeutic range 2.5 - 3.5 49-Xsr-502145:10 Potassium Serum (89532) Comments: PATIENT NOT FASTINGPERFORMED BY: [employer] Vfqjct7786 [facility] [id number] Potassium, Serum 3.9 mmol/L (Normal) Range: 3.5-5.2 12-Ebr-463264:10 Magnesium (27281) Comments: PATIENT NOT FASTINGPERFORMED BY: [employer] Mafscx2311 [facility] [id number] Magnesium, Serum 1.9 mg/dL (Normal) Range: 1.6-2.6 :59 HgA1C , Office (56891) HgA1C , Office 5.7 % (Normal) Range: 4.6 - 7.1 :59 Blood Glucose , Office (39712) Blood Glucose , Office 149 (Normal) :08 TSH (54078) Comments: PATIENT WAS FASTINGPERFORMED BY: [employer] Vsqlcp8457 [facility] [id number] TSH 2.390 {uIU/mL} (Normal) Range: 0.450-4.500 :08 URINALYSIS, W/ MICRO (95272) Comments: PATIENT WAS FASTINGPERFORMED BY: [facility] Hiohhy5973 [facility] [id number] Microscopic Examination See below: (Normal) Microscopic Examination MICRON (Normal) Comments: Microscopic follows if indicated. Nitrite, Urine Negative (Normal) Urobilinogen,Semi-Qn 0.2 mg/dL (Normal) Range: 0.0-1.9 Bilirubin Negative (Normal) Occult Blood Negative (Normal) Ketones Negative (Normal) Glucose Negative (Normal) Protein Negative (Normal) Appearance Clear (Normal) WBC Esterase Negative (Normal) pH 7.5 (Normal) Range: 5.0-7.5 Specific [place] 1.013 (Normal) Range: 1.005-1.030 Urine-Color Yellow (Normal) :08 MICROALBUMIN: CREATININE RATIO Comments: PATIENT WAS FASTINGPERFORMED BY: [facility] CorporationCommunity Medical CenterHhrcfl9504 [facility] [id number] (72555) AND (97578) Microalb/Creat Ratio 3.8 {mg/g_creat} (Normal) Range: 0.0-30.0 Microalbumin, Urine 2.9 ug/mL (Normal) Range: 0.0-17.0 Creatinine, Urine 77.3 mg/dL (Normal) Range: 15.0-278.0 :08 METABOLIC PANEL, COMPREHENSIVE Comments: PATIENT WAS FASTINGPERFORMED BY: [employer] Rgrxwq7870 [facility] [id number] (25558) ALT (SGPT) 17 [iU]/L (Normal) Range: 0-32 [...] mg/dL (Abnormal) Range: 65-99 :08 LIPID PANEL (81515) Comments: PATIENT WAS FASTINGPERFORMED BY: [employer]70 [facility] [id number] LDL/HDL Ratio 2.1 {ratio_units} (Normal) Range: 0.0-3.2 LDL Cholesterol Calc 90 mg/dL (Normal) Range: 0-99 VLDL Cholesterol Yamilka 41 mg/dL (Abnormal) Range: 5-40 HDL Cholesterol 42 mg/dL (Normal) Comments: According to ATP-III Guidelines, HDL-C >59 mg/dL is considered anegative risk factor for CHD. Cholesterol, Total 173 mg/dL (Normal) Range: 100-199 Triglycerides 203 mg/dL (Abnormal) Range: 0-149 01-Apr-20138:08 CBC WITH MANUAL DIFF Comments: PATIENT WAS FASTINGPERFORMED BY: [employer]6370 [facility] [id number] Information: ADD [id number] AND DRAW FEE 99 4775 (35466) Immature Grans (Abs) 0.0 {x10E3/uL} (Normal) Range: [...] Microscopic Examination Comments: PATIENT WAS FASTINGPERFORMED BY: [employer] [facility] [id number] Bacteria None seen (Normal) Mucus Threads Present (Normal) Epithelial Cells (non renal) 0-10 {/hpf} (Normal) Range: 0 - 10 RBC 0-3 {/hpf} (Normal) Range: 0 - 3 WBC 0-5 {/hpf} (Normal) Range: 0 - 5 :49 HgA1C , Office (48768) HgA1C , Office 5.8 % (Normal) Range: 4.6 - 7.1 :49 Blood Glucose , Office (61578) Blood Glucose , Office 142 (Normal) 6-Sgg-866073:13 ALFONZO CULTURE-OTHER (83277) Comments: PATIENT NOT FASTINGPERFORMED BY: [employer] Asjfnh2078 [facility] [id number] Information: SRC:THRT [id number] Result 1 RRF (Normal) Comments: Routine respiratory hermelindo Upper Respiratory Culture Final report (Normal) 2-Qxc-379759:30 Rapid Strep Test, Office (98556) Rapid Strep Test, Office Negative (Normal) 66-Aiw-727156:36 URIC ACID BLOOD (19117) Comments: PATIENT NOT FASTINGPERFORMED BY: [facility]6370 [facility] [id number] Information: [id number] Uric Acid, Serum 6.6 mg/dL (Normal) Range: 2.5-7.1 Comments: Therapeutic target for gout patients: <6.0 :29 Blood Glucose , Office (62559) Blood Glucose , Office 128 (Normal) :29 HgA1C , Office (80607) HgA1C , Office 5.5 % (Normal) Range: 4.6 - 7.1 :11 HgA1C , Office (15942) HgA1C , Office 5.5 % (Normal) Range: 4.6 - 7.1 53-Anz-239491:11 Blood Glucose , Office (08292) Blood Glucose , Office 127 (Normal) :35 Microscopic Examination Comments: PATIENT WAS FASTINGPERFORMED BY: [facility]6370 [facility] [id number] Bacteria Few (Normal) Mucus Threads Present (Normal) Cast Type Hyaline casts (Normal) Casts Present {/lpf} (Abnormal) Epithelial Cells (non renal) 0-10 {/hpf} (Normal) Range: 0 - 10 RBC 0-3 {/hpf} (Normal) Range: 0 - 3 WBC 6-10 {/hpf} (Abnormal) Range: 0 - 5 :35 TSH (19738) Comments: PATIENT WAS FASTINGPERFORMED BY: [facility]6370 [facility] [id number] TSH 1.550 {uIU/mL} (Normal) Range: 0.450-4.500 :35 URINALYSIS, W/ MICRO (37324) Comments: PATIENT WAS FASTINGPERFORMED BY: [facility]6370 [facility] [id number] Microscopic Examination See below: (Normal) Nitrite, Urine Negative (Normal) Urobilinogen,Semi-Qn 0.2 mg/dL (Normal) Range: 0.0-1.9 Bilirubin Negative (Normal) Occult Blood Negative (Normal) Ketones Negative (Normal) Glucose Negative (Normal) Protein Negative (Normal) WBC Esterase 1+ (Abnormal) Appearance Clear (Normal) Urine-Color Yellow (Normal) pH 6.5 (Normal) Range: 5.0-7.5 Specific [place] 1.019 (Normal) Range: 1.005-1.030 :35 MICROALBUMIN: CREATININE RATIO Comments: PATIENT WAS FASTINGPERFORMED BY: Ali Whjune6471 [facility] [id number] (00972) AND (70706) Microalb/Creat Ratio 7.8 {mg/g_creat} (Normal) Range: 0.0-30.0 Microalbumin, Urine 17.2 ug/mL (Abnormal) Range: 0.0-17.0 Creatinine, Urine 220.8 mg/dL (Normal) Range: 15.0-278.0 :35 METABOLIC PANEL, COMPREHENSIVE Comments: PATIENT WAS FASTINGPERFORMED BY: Ali Davifd2738 [facility] [id number] (74539) ALT (SGPT) 17 [iU]/L (Normal) Range: 0-40 [...] mg/dL (Normal) Range: 65-99 :35 LIPID PANEL (55169) Comments: PATIENT WAS FASTINGPERFORMED BY: [employer]70 [facility] [id number] LDL/HDL Ratio 1.0 {ratio_units} (Normal) Range: 0.0-3.2 [...] MANUAL DIFF Comments: PATIENT WAS FASTINGPERFORMED BY: [employer]6370 [facility] [id number] Information: [id number] (23968) Immature Grans (Abs) 0.0 {x10E3/uL} (Normal) Range: [...] (Normal) Range: 4.0-10.5 :33 HgA1C , Office (91793) HgA1C , Office 5.7 % (Normal) Range: 4.6 - 7.1 :33 Blood Glucose , Office (01480) Blood Glucose , Office 115 (Normal) 50-Lbp-691103:50 KIDNEY Radiology Report See Note (Normal) Comments: [...] 07/19/11 0430 Sign by: Marciano Fountain MD 74-Cls-237166:50 PARATHORMONE (70853) Comments: PATIENT NOT FASTINGPERFORMED BY: [employer] LabAdyen Huthbr1866 Real[employer]in [place] [id number] PTH, Intact 20 pg/mL (Normal) Range: 15-65 45-Xqv-984123:50 Metabolic Panel, Comments: PATIENT NOT FASTINGPERFORMED BY: [employer] [facility] Oiqbln0423 [facility] Centerin [place] [id number] Information: [id number] Comprehensive (40486) ALT (SGPT) 23 [iU]/L (Normal) Range: 0-40 [...] Glucose, Serum 94 mg/dL (Normal) Range: 65-99 87-Ifg-377073:06 Metabolic Panel, Comments: PATIENT NOT FASTINGPERFORMED BY: LabCoCommunity Medical CenterVnnnzq2915 [facility] [id number] Information: [id number] Comprehensive (54683) ALT (SGPT) 30 [iU]/L (Normal) Range: 0-40 [...] Glucose, Serum 92 mg/dL (Normal) Range: 65-99 68-Ooj-00930:17 METABOLIC PANEL, Comments: PATIENT WAS FASTINGPERFORMED BY: LabCoCommunity Medical CenterActsss0426 [facility] [id number] Information: [id number] COMPREHENSIVE (60133) ALT (SGPT) 27 [iU]/L (Normal) Range: 0-40 [...] mg/dL (Normal) Range: 65-99 :17 LIPID PANEL (17936) Comments: PATIENT WAS FASTINGPERFORMED BY: [facility]CoCommunity Medical CenterBjbzaw1823 [facility] [id number] LDL/HDL Ratio 1.1 {ratio_units} (Normal) Range: 0.0-3.2 LDL Cholesterol Calc 46 mg/dL (Normal) Range: 0-99 VLDL Cholesterol Yamilka 28 mg/dL (Normal) Range: 5-40 HDL Cholesterol 41 mg/dL (Normal) Comments: According to ATP-III Guidelines, HDL-C >59 mg/dL is considered anegative risk factor for CHD. Triglycerides 140 mg/dL (Normal) Range: 0-149 Cholesterol, Total 115 mg/dL (Normal) Range: 100-199 :38 Blood Glucose , Office (60015) Blood Glucose , Office 132 (Normal) :38 HgA1C , Office (50047) HgA1C , Office 5.7 % (Normal) Range: 4.6 - 7.1 61-Awp-163639:01 BILAT SCRN DIGITAL & CAD Radiology Report [...] 1051 S ign by: Anam Larios MD 61-Nss-531624:01 DEXA BONE DENSITY STUDY (HP) Radiology Report [...] FECAL OCCULT HGB ASSAY- tubes sent home (82576) FECAL OCCULT HGB ASSAY, QUAL, 1-3 SIMULTANEOU negative (Normal) :32 HgA1C , Office (85192) HgA1C , Office 8.6 % (Abnormal) Range: 4.6 - 7.1 :32 Blood Glucose , Office (14718) Blood Glucose , Office 324 (Normal) :30 [...] {uIU/mL} (Normal) Range: 0.358-3.74 :45 CULTURE, SPUTUM (51356) Comments: PATIENT NOT FASTINGPERFORMED BY: PRATIMA [facility] Ijvgtc3004 [address] [place] [id number] Information: SRC:[facility] [id number] Result 1 RRF (Normal) Comments: Routine respiratory hermelindo Lower Respiratory Culture Final report (Normal) :48 HgA1C , Office (92326) HgA1C , Office 5.8 % (Normal) Range: 4.6 - 7.1 :48 Blood Glucose , Office (24806) Blood Glucose , Office 124 (Normal) :20 CHEST WITH CONTRAST Radiology Report See Note (Normal) Comments: Exam Number: [id number] CLINICAL:Sarcoidosis, shortness of breath, wheezing CT CHEST [...] allunchanged. Previous cholecystectomy? Reported By: PO MANCILLA :15 SERUM CRE & GFR EST GFR - AA 65 mL/min (Normal) EST GFR 54 mL/min (Abnormal) CREAT,SERUM 1.1 mg/dL (Abnormal) Range: 0.6-1.0 08-Dgs-652353:42 CHEST, PA AND LATERAL (AR) Radiology Report See Note (Normal) Comments: Exam Number: [id number] CHEST X- RAY PA AND LATERAL VIEWS [...] moderate dextroscoliotic curvature. Reported By: Joseph Núñez 65-Dxe-813841:15 MAGNESIUM (77555) Comments: PATIENT NOT FASTINGPERFORMED BY: [employer]6370 [facility] [id number] Magnesium, Serum 2.1 mg/dL (Normal) Range: 1.6-2.6 12-Vzt-181596:15 Renal function Panel Comments: PATIENT NOT FASTINGPERFORMED BY: [employer] Dipfsz7899 [facility] [id number] Information: [id number] (16621) Albumin, Serum 4.7 g/dL (Normal) Range: 3.5-5.5 [...] (Abnormal) Range: 65-99 :46 HgA1C , Office (65863) HgA1C , Office 6.0 % (Normal) Range: 4.6 - 7.1 :46 Blood Glucose , Office (36963) Blood Glucose , Office 140 (Normal) :27 [...] T PROT 7.8 g/dL (Normal) Range: 6.4-8.2 27-Ido-813076:11 CBC with manual diff Comments: PATIENT NOT FASTINGPERFORMED BY: [facility]6370 [facility] [id number] Information: [id number] (27256) Baso (Absolute) 0.0 {x10E3/uL} (Normal) Range: 0.0-0.2 [...] 3.80-5.10 WBC 9.0 {x10E3/uL} (Normal) Range: 4.0-10.5 89-Suh-632580:55 Microscopic Examination Comments: PATIENT WAS FASTINGPERFORMED BY: [employer]20 BIO TECHNOLOGIESDouglas Ville 799010 [facility] [id number] BY: [facility]6370 [facility] [id number] Bacteria Few (Normal) Cast Type Hyaline casts (Normal) Mucus Threads Present (Normal) Casts Present {/lpf} (Abnormal) Epithelial Cells (non renal) 0-10 {/hpf} (Normal) Range: 0 - 10 RBC 0-3 {/hpf} (Normal) Range: 0 - 3 WBC 0-5 {/hpf} (Normal) Range: 0 - 5 66-Qgq-743907:34 HgA1C , Office (06755) HgA1C , Office 5.9 % (Normal) Range: 4.6 - 7.1 06-Wcx-497968:34 Blood Glucose , Office (12076) Blood Glucose , Office 140 (Normal) :55 TSH (87606) Comments: PATIENT WAS FASTINGPERFORMED BY: S[address] [id number] BY: VLST CorporationCommunity Medical CenterPwvqpq2376 [facility] [id number] TSH 0.541 {uIU/mL} (Normal) Range: 0.450-4.500 Comments: Effective December 24, 2009, TSH reference interval for11 - 19 years will be changing to: 0.450 - 4.500 uIU/mLReference interval for all other ages will NOT be affected. 01-Gbn-893798:55 URINALYSIS, W/ MICRO Comments: PATIENT WAS FASTINGPERFORMED BY: S7 [employer]Agoura Technologies[address] [id number] BY: [facility]6370 [facility] [id number] (38144) Bilirubin Negative (Normal) Microscopic Examination MICRON (Normal) Comments: Microscopic follows if indicated. Microscopic Examination See below: (Normal) Nitrite, Urine Negative (Normal) Occult Blood Negative (Normal) Urobilinogen,Semi-Qn 0.2 mg/dL (Normal) Range: 0.0-1.9 Glucose Negative (Normal) Ketones Negative (Normal) Protein Negative (Normal) WBC Esterase Negative (Normal) Appearance Clear (Normal) pH 6.0 (Normal) Range: 5.0-7.5 Specific [place] 1.020 (Normal) Range: 1.005-1.030 Urine-Color Yellow (Normal) 57-Uso-006489:55 MICROALBUMIN: CREATININE Comments: PATIENT WAS FASTINGPERFORMED BY: [employer] [address] [id number] BY: VLST CorporationPresbyterian Kaseman HospitalQiqbxy4961 [facility] [id number] RATIO (14206) AND (01858) Microalb/Creat Ratio 7.1 {mg/g_creat} (Normal) Range: 0.0-30.0 Microalbumin, Urine 8.6 ug/mL (Normal) Range: 0.0-17.0 Creatinine, Urine 120.9 mg/dL (Normal) Range: 15.0-278.0 34-Oyq-328140:55 METABOLIC PANEL, Comments: PATIENT WAS FASTINGPERFORMED BY: S7 [employer] [address] [id number] BY: [employer] Zampco0414 [facility] [id number] COMPREHENSIVE (67671) ALT (SGPT) 24 [iU]/L (Normal) Range: 0-40 [...] Glucose, Serum 105 mg/dL (Abnormal) Range: 65-99 49-Ukr-716712:55 LIPOPROTEIN, BLD, BY NMR Comments: PATIENT WAS FASTINGPERFORMED BY: Sarah Lipimgfave Orc4819 [facility] [id number] BY: PRATIMA [facility] Recair6836 [facility] [id number] Information: [id number] (88778) Large VLDL-P 2.9 nmol/L (Abnormal) Comments: Small [...] 1599High 1600 - 2000Very high > 2000. 38-Uuj-197902:55 CBC WITH MANUAL DIFF Comments: PATIENT WAS FASTINGPERFORMED BY: Sarah [employer] Sgf2220 [facility] [id number] BY: PRATIMA LabCoCommunity Medical CenterCeyomo2185 [facility] [id number] (98996) Baso (Absolute) 0.0 {x10E3/uL} (Normal) Range: 0.0-0.2 [...] kidney disease, stage III (moderate) : Reviewed [employer] Operator Letter Indication: Chronic kidney disease, stage III (moderate) Chronic kidney disease, stage III (moderate) : Reviewed Lab Indication: Chronic kidney disease, stage III (moderate) Hypercholesteremia : Cholesterol mgmt Indication: Hypercholesteremia Atrial fibrillation : Continue Current Prescription(s) Indication: Atrial fibrillation Atrial fibrillation : Reviewed [employer] Operator Letter Indication: Atrial fibrillation Hypertension with renal [...] KIDNEY DISEASE, STAGE IV (SEVERE) : Reviewed [employer] Operator Letter Indication: CHRONIC KIDNEY DISEASE, STAGE IV (SEVERE) Diabetic autonomic neuropathy associated with type 2 diabetes mellitus : Follow up in 3 months Indication: Diabetic autonomic neuropathy associated with type 2 diabetes mellitus Chronic kidney disease, stage III (moderate) : Reviewed [employer] Operator Letter Indication: Chronic kidney disease, stage III [...] sequela Aspiration of food, sequela : Reviewed [employer] Operator Letter- sibila and bronch Indication: Aspiration of [...] Diagnostic Tests Indication: Sarcoidosis Sarcoidosis : Reviewed [employer] Operator Letter Indication: Sarcoidosis DM (diabetes mellitus), type 1, uncontrolled, with renal complications : Follow up in 3 months Indication: DM (diabetes mellitus), type 1, uncontrolled, with renal complications DM (diabetes mellitus), type 1, uncontrolled, with renal complications : Reviewed Lab Indication: DM (diabetes mellitus), type 1, uncontrolled, with renal complications Asthma : Continue Current Prescription(s) Indication: Asthma Asthma : Reviewed [employer] Operator Letter Indication: Asthma CHRONIC KIDNEY DISEASE, STAGE IV (SEVERE) : Reviewed [employer] Operator Letter Indication: CHRONIC KIDNEY DISEASE, STAGE IV [...] GERD (gastroesophageal reflux disease) Asthma : Reviewed [employer] Operator Letter Indication: Asthma Asthma : Continue Current Prescription(s) Indication: Asthma DM (diabetes mellitus), type 1, uncontrolled, with renal complications : Follow up in 3 months- do ekg Indication: DM (diabetes mellitus), type 1, uncontrolled, with renal complications Chronic kidney disease, stage III (moderate) : Reviewed [employer] Operator Letter Indication: Chronic kidney disease, stage III [...] typeII,controlled, renal comp Atrial fibrillation : Reviewed [employer] Operator Letter Indication: Atrial fibrillation Hypercholesteremia : Reviewed [...] Indication: Impacted fracture Impacted fracture : Reviewed [employer] Operator Letter Indication: Impacted fracture Hypertension with renal [...] kidney disease, stage III (moderate) : Reviewed [employer] Operator Letter- Dr Ribeiro Indication: Chronic kidney disease, [...] kidney disease, stage III (moderate) : Reviewed [employer] Operator Letter Indication: Chronic kidney disease, stage III [...] kidney disease, stage III (moderate) : Reviewed [employer] Operator Letter Indication: Chronic kidney disease, stage III [...] kidney disease, stage III (moderate) : Reviewed [employer] Operator Letter Indication: Chronic kidney disease, stage III [...] kidney disease, stage III (moderate) : Reviewed [employer] Operator Letter-- dr ribeiro Indication: Chronic kidney disease, [...] kidney disease, stage III (moderate) : Reviewed [employer] Machine Operator Letter: Dr ribeiro Indication: Chronic kidney disease, stage III (moderate) Diabetes mellitus type II, controlled : *Diabetes Education Indication: Diabetes mellitus type II, controlled Hypercholesteremia : Cholesterol mgmt Indication: Hypercholesteremia Hypertension with renal disease : Diet, Exercise, and Wt loss Indication: Hypertension with renal disease Hypertension with renal disease : HTN/CAD Red Flags Indication: Hypertension with renal disease Aspiration pneumonia : Reviewed [employer] Operator Letter Indication: Aspiration pneumonia Aspiration pneumonia : [...] kidney disease, stage III (moderate) : Reviewed [employer] Machine Operator Letter Indication: Chronic kidney disease, stage III [...] kidney disease, stage III (moderate) : Reviewed [employer] Operator Letter- w/u in progress Indication: Chronic kidney [...] reflux disease) Planned Observations METABOLIC PANEL, BASIC (38239)Indication: Hypertension with renal disease On: 60-Jsk-830789:30 Request Comments: STAT STAT STAT STAT METABOLIC PANEL, COMPREHENSIVE (59323)Indication: Medication monitoring encounter On: 6-Gsw-361364:10 Request Parathyroid Hormone-related Peptide (PTH-rP) (42502)Indication: Hypercalcemia On: :40 Request Comments: send copy dr ribeiro CALCIUM SERUM (04352)Indication: Hypercalcemia On: :40 Request Comments: send copy to dr ribeiro ELECTROLYTES, 24 HOUR URINE (62855)Indication: Hypercalcemia On: 8-Jwg-812519:49 Request POTASSIUM SERUM (50286)Indication: Hypercalcemia On: 5-Vfd-963306:48 Request Parathyroid Hormone-related Peptide (PTH-rP) (67226)Indication: Hypercalcemia On: 7-Cag-625910:48 Request CALCIUM SERUM (44975)Indication: Hypercalcemia On: 3-Lgh-720992:48 Request CALCIUM URINE 37722 ([id number])Indication: Hypercalcemia On: :06 Request Comments: 24 hr urine ELECTROLYTES, 24 HOUR URINE ([id number])Indication: Hypercalcemia On: :06 Request FECAL OCCULT- Tubes sent home ([id number])Indication: Encounter for screening for malignant neoplasm of colon (Renamed from Special screening for malignant neoplasms, colon) On: 98-Tbv-960532:47 Request Lipid Panel ([id number])Indication: Hypercholesteremia On: 5-Jom-562804:02 Request CALCIFIDIOL (83104) VIT D 25Indication: FATIGUE On: 0-Grr-899557:38 Request Folate ([id number])Indication: FATIGUE On: 1-Nlj-762459:38 Request VITAMIN B-12 (CYANOCOBALAMIN) (34370)Indication: FATIGUE On: :38 Request TSH ([id number])Indication: FATIGUE On: :38 Request SED RATE ERYTHROCYTE ([id number])Indication: FATIGUE On: :38 Request RHEUMATOID FACTOR-QUANT ([id number])Indication: FATIGUE On: :38 Request METABOLIC PANEL, COMPREHENSIVE ([id number])Indication: FATIGUE On: :38 Request C-REACTIVE PROTEIN (31066)Indication: FATIGUE On: :38 Request CBC (AUTO) ([id number])Indication: FATIGUE On: :38 Request HEIDI (ANTINUCLEAR ANTIBODY) ([id number])Indication: FATIGUE On: :38 Request CULTURE, SPUTUM (03709)Indication: Cough On: 7-Bvh-242362:08 Request Metabolic Panel, Comprehensive ([id number])Indication: Diabetes mellitus type 2, uncontrolled, without complications On: 27-Nxu-059219:21 Request FECAL OCCULT HGB ASSAY- tubes sent home ([id number])Indication: Encounter for Medicare annual wellness exam On: 13-Wew-13533:58 Request CALCIFIDIOL (73509) VIT D 25Indication: Vitamin D deficiency On: :48 Request MAGNESIUM (52910)Indication: Hypomagnesemia On: 56-Avz-71882:47 Request URINE ALFONZO CULTURE ([place] COL COUNT) (81283)Indication: Abdominal pain On: 49-Tyl-836752:37 Request Urinalysis, Office (82147)Indication: Abdominal pain On: 50-Kiq-349701:37 Request FECAL OCCULT HGB ASSAY- tubes sent home ([id number])Indication: Encounter for Medicare annual wellness exam On: 11-Goo-90544:56 Request Metabolic Panel, Basic (50792)Indication: Chronic kidney disease, stage III (moderate) On: 64-Onw-359263:11 Request POTASSIUM SERUM (18025)Indication: Hypokalemia On: 09-Nny-65371:13 Request TSH ([id number])Indication: Diabetes mellitus type II, controlled On: 5-Syx-471200:01 Request URINALYSIS, W/ MICRO (49672)Indication: Diabetes mellitus type II, controlled On: Request MICROALBUMIN: CREATININE RATIO (10534) AND (06495)Indication: Diabetes mellitus type II, controlled On: Request METABOLIC PANEL, COMPREHENSIVE ([id number])Indication: Diabetes mellitus type II, controlled On: Request LIPID PANEL (78134)Indication: Diabetes mellitus type II, controlled On: Request CBC WITH MANUAL DIFF ([id number])Indication: Diabetes mellitus type II, controlled On: Request LIPOPROTEIN, BLD, BY NMR ([id number])Indication: Hypercholesteremia On: : Request LIPID PANEL ([id number])Indication: Hypercholesteremia On: Request Comments: do in 3 months HEPATIC FUNCTION PANEL (30023)Indication: Hypercholesteremia On: : Request LIPID PANEL ([id number])Indication: Hypertension, benign On: : Request Planned Encounters Medical; 3 Month FU - On: 09-Feb-2019 8:15 [facility] Veronica Oquendo DO, DO, Kathleen Planned Procedures Solu -Medrol Injection, 125 mg On: 18-Aug-2018 Intent (J2930)By: Kassandra Fortune CNP Flu Vaccine (Quadrivalent) 46321Bo: On: 09-Aug-2018 Intent Veronica Oquendo DO, DO, Comments: Lot #[id number]-L dltd, IMDose prefilled syringegiven by:ANTOINE Munoz reviewed and ABN signed Veronica ELECTROCARDIOGRAM, COMPLETE (ECG) On: 09-Aug-2018 Intent (05330)By: Veronica Oquendo DO Comments: nsr - RBBB - no t acute Veronica Oquendo DO IBVB-GU-USDB BEHAVIORAL COUNSELING On: 09-Apr-2018 Intent FOR OBESITY, 15 MINUTES (G0447)By: Veronica Oquendo DO, DO, Kathleen SCREENING DIGITAL TOMOSYNTHESIS OF On: 09-Apr-2018 Intent BREAST ([id number])By: Veronica Oquendo DO, DO, Kathleen Solu- Medrol Injection, 125mg On: 01-Jan-2018 Intent (J2930)By: Veronica Oquendo DO Comments: 125mg - 1 [id number] hip, BARRYChestermya Maximino, MOTTLER OPERATOR Azra JEAN-BAPTISTE, Veronica CHEST XRAY, PA & LATERAL ([id number])By: On: 23-Dec-2017 Intent Veronica Oquendo DO, DO, Veronica CHEST XRAY, PA & LATERAL ([id number])By: On: 22-Dec-2017 Intent Kelsea Lund Aerosol Treatment (90352)By: On: 22-Dec-2017 Intent Kelsea Lund Comments: Still has wheezing in right lobe after aerosol treatment. Aerosol Treatment ([id number])By: Azra On: 25-Nov-2017 Veronica Pabon DO, DO, Kathleen Comments: more a/e less reactivity 0-no wheeze but still that Rub in RLL area Solu- Medrol Injection, 125mg On: 25-Nov-2017 Intent (J2930)By: Veronica Oquendo DO Comments: [id number], 1vialMLONG MOTTLER OPERATOR Veronica Oquendo DO Solu- Medrol Injection, 125mg On: 27-Oct-2017 Intent (J2930)By: Kelsea Lund Comments: solumedrol 125mg injectionlot: [id number]: 10/2019L GMpt tolerated wellAD MOTTLER OPERATOR Aerosol Treatment ([id number])By: On: 27-Oct-2017 Intent Kelsea Lund Comments: expiratory wheeze after albuterol aerosol treatment. EKG (31442)By: Veronica Oquendo DO On: 14-Oct-2017 Intent Veronica Oquendo DO Comments: nsr no acute chg- RBBB Aerosol Treatment ([id number])By: Azra On: 14-Aug-2017 Veronica Pabon DO, DO, Kathleen Comments: no noise and more a/e Solu- Medrol Injection, 125mg On: 14-Aug-2017 Intent (J2930)By: Veronica Oquendo DO Comments: lot [id number] mgright gmIMas, MOTTLER OPERATOR Veronica Oquendo DO Solu- Medrol Injection, 125mg On: 05-Aug-2017 Intent (J2930)By: Veronica Oquendo DO Comments: Lot:[id number]:11/17Dose:125mgRoute:imSite:r hipGiven By:MICHAEL signed Veronica Oquendo DO Flu Vaccine (Quadrivalent) 13530Zk: On: 28-Jul-2017 Intent Veronica Oquendo DO, DO, Kathleen ELECTROCARDIOGRAM, COMPLETE (ECG) On: 28-Jul-2017 Intent (59407)By: Veronica Oquendo DO, DO, Kathleen IV Needle placement (98110)By: On: 14-Jul-2017 Intent Kassandra Fortune CNP ORTHOSTATIC BLOOD PRESSURE On: 14-Jul-2017 Intent ASSESSMENT ([id number])By: Kassandra Fortune CNP INFUSION, NORMAL SALINE SOLUTION , On: 14-Jul-2017 Intent 1000 CC (Special Coverage Instructions Apply. See MCM: 2049) ([id number])By: Kassandra Fortune CNP Solu -Medrol Injection, 125 mg On: 22-Jun-2017 Intent (J2930)By: Kelsea Lund Solu- Medrol Injection, 125mg On: 17-Apr-2017 Intent (J2930)By: Veronica Oquendo DO Comments: Lot:[id number]:04/2019Dose:125mgRoute:imSite:l armGiven By:NOE signed Veronica Oquendo DO DEXA SCAN AXIAL SKELETON (95795)By: On: 06-Apr-2017 Intent Veronica Oquendo DO, DO, Kathleen SCREENING DIGITAL TOMOSYNTHESIS OF On: 06-Apr-2017 Intent BREAST ([id number])By: Veronica Oquendo DO, DO, Kathleen Flu Vaccine (Quadrivalent) 27160Ep: On: 20-Aug-2016 Intent Veronica Oquendo DO, DO, Comments: FLUlot: [id number]:05/29/17site:Lt deltoidroute:IMdose:.5mlDEMICVALENTINA Mishra Solu- Medrol Injection, 125mg On: 20-Aug-2016 Intent (J2930)By: Veronica Oquendo DO Comments: solumedrollot:[id number]:03/18site:lt glutroute:IMdose:125mgD.VALENTINA Dunlap DO, Kathleen Solu -Medrol Injection, 125 mg On: 13-Aug-2016 Intent (J2930)By: Kassandra Fortune CNP Comments: Lot:[id number]:02/2019Dose:125mgRoute:imSite:l hip Given By:NOE signed Aerosol Treatment (32821)By: Irma On: 13-Aug-2016 Intent Clarisse SCHWARZ Radiology - Shoulder - LeftBy: Devika On: 04-Jul-2016 Intent Kassandra LUU Radiology - Knee - LeftBy: Devika On: 04-Jul-2016 Intent Kassandra LUU Comments: send result to Dr. Delgadillo Toradol Injection, 30 mg ([id number])By: On: 04-Jul-2016 Intent Kassandra Fortune CNP Aerosol Treatment ([id number])By: Azra On: 12-May-2016 Intent Veronica JEAN-BAPTISTE DO, Kathleen Comments: less cough and more a./e- no wheeze Solu- Medrol Injection, 125mg On: 12-May-2016 Intent (J2930)By: Veronica Oquendo DO Comments: lot: [id number]: 12/18site/route: RGM/IMamt: 2mLVIS signed when applicableSTARR Lui DO, Kathleen CT - Chest (IV Contrast Needed)By: On: 09-May-2016 Intent Veronica Oquendo DO, DO, Kathleen Radiology - Chest- PA and LatBy: On: 08-May-2016 Intent Veronica Oquendo DO, DO, Kathleen PNEUM VAC ADLT/IMUMNOSPR, SBC/INTRM On: 21-Apr-2016 Intent ([id number])By: Veronica Oquendo DO Comments: pneumovaxlot:[id number]:09/06/17site:lt deltroute:IMD.VALENTINA Dunlap DO, Kathleen CDJE-YC-VHPX BEHAVIORAL COUNSELING On: 21-Apr-2016 Intent FOR OBESITY, 15 MINUTES (G0447)By: Veronica Oquendo DO, DO, Kathleen MAMMOGRAM, SCREENING, BOTH BREAST On: 21-Apr-2016 Intent ([id number])By: Veronica Oquendo DO, DO, Kathleen Radiology - Knee - RightBy: Azra On: 14-Apr-2016 Intent Veronica JEAN-BAPTISTE DO, Kathleen Radiology - Knee - LeftBy: Azra On: 14-Apr-2016 Intent Veronica JEAN-BAPTISTE DO, Kathleen ADMINISTRATION OF INFLUENZA VIRUS On: 09-Aug-2015 Intent VACCINE (G0008)By: Veronica Oquendo DO, DO, Kathleen Flu Vaccine (Quadrivalent) 57483Iu: On: 09-Aug-2015 Intent Veronica Oquendo DO, DO, Comments: Lot:[id number]:02/27/16Dose:0.5mLRoute:IMSite:L DltdGiven By:NOE signed Veronica Solu -Medrol Injection, 125 mg On: 03-Aug-2015 Intent (J2930)By: Veronica Oquendo DO Comments: Lot:[id number]:12/2017Dose:125mgRoute:imSite:l armGiven By:NOE signed Veronica Oquendo DO Aerosol Treatment (50675)By: Azra On: 03-Aug-2015 Veronica Pabon DO, DO, Kathleen Comments: more a/e after aerosol EKG (77226)By: Veronica Oquendo DO On: 19-Jul-2015 Veronica Wren DO Comments: ming botello -- no new twave chg when compared to old ones Aerosol Treatment (95469)By: Azra On: 30-Apr-2015 Intent Veronica JEAN-BAPTISTE DO, Kathleen Radiology - Chest- PA and LatBy: On: 27-Apr-2015 Intent Veronica Oquendo DO, DO, Kathleen DEXA SCAN AXIAL SKELETON (63472)By: On: 17-Apr-2015 Intent Veronica Oquendo DO, DO, Kathleen INTENSIVE BEHAVIORAL THERAPY TO On: 17-Apr-2015 Intent REDUCE CARDIOVASCULAR DISEASE RISK, INDIVIDUAL, OQIY-IT-OBDK, ANNUAL, 15 MINUTES (G0446)By: Veronica Oquendo DO, DO, Kathleen JYOG-AX-LXAU BEHAVIORAL COUNSELING On: 17-Apr-2015 Intent FOR OBESITY, 15 MINUTES (G0447)By: Veronica Oquendo DO Azra DO, Veronica MAMMOGRAM, SCREENING, BOTH BREAST On: 17-Apr-2015 Intent ([id number])By: Veronica Oquendo DO Azra DO Veronica EKG (14303)By: Veronica Oquendo DO On: 16-Aug-2014 Intent Azra DOVeronica Comments: nsr nonspecif st and t wave chg old not new Radiology - Chest- PA and LatBy: On: 15-May-2014 Intent Azra DO, Veronica Azra DO, Veronica Toradol Injection, 30 mg (J1885)By: On: 12-May-2014 Intent Kassandra Fortune CNP Comments: Lot:[id number]:10/30/15Dose:30mgRoute:imSite:sissy hipGiven By:NOE signed Eprescribed prescriptions (G8553)By: On: 01-May-2014 Intent Veronica Oquendo DO Azra DO, Veronica MAMMOGRAM, SCREENING, BOTH BREASTS On: 18-Apr-2014 Intent ([id number])By: Veronica Oquendo DO Azra DO, Veronica LBII-PW-KUGA BEHAVIORAL COUNSELING On: 18-Apr-2014 Intent FOR OBESITY, 15 MINUTES (G0447)By: Azra DO, Veronica Azra DO, Veronica Eprescribed prescriptions (G8553)By: On: 11-Apr-2014 Intent Azra DO, Veronica Azra DO, Veronica Pulse Oximetry (01682)By: Azra JEAN-BAPTISTE, On: 11-Apr-2014 Intent Veronica Azra DO, Veronica Aerosol Treatment (08798)By: Devika On: 27-Sep-2013 Intent Kassandra LUU QTHG-TW-JGRB BEHAVIORAL COUNSELING On: 12-Sep-2013 Intent FOR OBESITY, 15 MINUTES (G0447)By: Veronica Oquendo DO Azra DO, Veronica MAMMOGRAM, SCREENING, BOTH BREASTS On: 12-Sep-2013 Intent (45125)By: Kelsea Richards LPN DRAIN/INJECT MAJOR JOINT OR BURSA On: 24-Aug-2013 Intent ([id number])By: Kelsea Richards LPN Comments: [id number] exp 08/13 DRAIN/INJECT MAJOR JOINT OR BURSA On: 24-Aug-2013 Intent ()By: Kelsea Richards LPN Comments: lt knee lot [id number] exp 08/13 DRAIN/INJECT MAJOR JOINT OR BURSA On: 18-Aug-2013 Intent ()By: Kelsea Richards LPN Comments: lt knee lot [id number] exp 07/13 DRAIN/INJECT MAJOR JOINT OR BURSA On: 18-Aug-2013 Intent ()By: Kelsea Richards LPN Comments: rt knee lot [id number] exp 07-13 FLU VAC, SPLIT, >3 YEARS, INTRAMUSC On: 10-Aug-2013 Intent (50179)By: Veronica Oquendo DO Comments: lot [id number] 2014site/route L sabas, IMamt 0.5mlVIS and ABN signed when applicableSTARR Lui DO, Kathleen ADMINISTRATION OF INFLUENZA VIRUS On: 10-Aug-2013 Intent VACCINE (G0008)By: Sania Ritchie DRAIN/INJECT MAJOR JOINT OR BURSA On: 10-Aug-2013 Intent ()By: Kelsea Richards LPN Comments: euflexxa injection lt knee lot [id number] exp 07/13 DRAIN/INJECT MAJOR JOINT OR BURSA On: 10-Aug-2013 Intent ()By: Kelsea Richards LPN Comments: euflexxa injection rt knee lot [id number] exp 07/13 Solu- Medrol Injection, 125mg On: 03-Aug-2013 Intent (J2930)By: Veronica Oquendo DO Comments: injected over Left sciatic area - most tender spot marked - no bleed pt tolerated well -- 08/03/13 lot # Veronica Oquendo DO Eprescribed prescriptions (G8553)By: On: 03-Aug-2013 Intent Sania Ritchie Kenalog Injection, 10 mgm On: 21-Jul-2013 Intent (J3301)By: Veronica Oquendo DO Comments: used 40 mglot: [id number]: 02/11site/route: RGM/IMamt: 40VIS signed when applicableSTARR Lui DO, Kathleen Nuclear Stress Test/Stress On: 21-Jul-2013 Intent SPECT/AdenosineBy: Azra JEAN-BAPTISTE, Comments: needs adenosine - bc 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 Veronica Jurado DO Echo CompleteBy: Veronica Oquendo DO On: 21-Jul-2013 Intent Veronica Oquendo DO Spirometry (99424)By: Azra JEAN-BAPTISTE, On: 21-Jul-2013 Intent Veronica Jurado DO Comments: mild obstruction EKG (25947)By: Veronica Oquendo DO On: 21-Jul-2013 Intent Veronica Oquendo DO Comments: nsr no acute chg - t wave inversion ant septal leads - st depression in lateral precordial leads CVUG-HF-VTVQ BEHAVIORAL COUNSELING On: 21-Jul-2013 Intent FOR OBESITY, 15 MINUTES (G0447)By: Veronica Oquendo DO, DO, Kathleen Radiology - Knee - RightBy: Azra On: 21-Jul-2013 Veronica Pabon DO, DO, Kathleen Radiology - Knee - LeftBy: Azra On: 21-Jul-2013 Veronica Pabon DO, DO, Kathleen Eprescribed prescriptions (G8553)By: On: 21-Jul-2013 Intent Sania Rtichie Eprescribed prescriptions (G8553)By: On: 08-Jul-2013 Veronica Wren DO, DO, Kathleen Solu -Medrol Injection, 125 mg On: 03-Jun-2013 Intent (J2930)By: Kassandra Fortune CNP Comments: Lot: [id number]: 12/2015Amt: 125mgRoute: IMSite: RUOQ glutealGiven by: CHONG Canas EKG (45215)By: Veronica Oquendo DO On: 11-Apr-2013 Intent Veronica Oquendo DO Comments: nsr no acute chg the same nonspecific st flattening in v1v2 are presnet on old ekg's Spirometry (37474)By: Azra JEAN-BAPTISTE, On: 11-Apr-2013 Intent Veronica Jurado DO Comments: such poor technique cnt report a FEV Eprescribed prescriptions (G8553)By: On: 16-Sep-2012 Intent Kelsea Richards LPN FLU VAC, SPLIT, >3 YEARS, INTRAMUSC On: 02-Sep-2012 Intent ([id number])By: Veronica Oquendo DO Comments: Lot #[id number]/30/13Site-left deltoidgiven by: CHONG Patrick DO, Kathleen ADMINISTRATION OF INFLUENZA VIRUS On: 02-Sep-2012 Intent VACCINE (G0008)By: Veronica Oquendo DO, DO, Kathleen NNJE-GN-HWJV BEHAVIORAL COUNSELING On: 02-Sep-2012 Intent FOR OBESITY, 15 MINUTES (G0447)By: Veronica Oquendo DO, DO, Kathleen SPECIMEN HNDLNG/TRNSPRT, OFFC > LAB On: 04-Aug-2012 Intent (55124)By: Suki Gutiérrez LPN MAMMOGRAM, SCREENING, BOTH BREASTS On: 28-Jul-2012 Intent (33612)By: Veronica Oquendo DO, DO, Kathleen EKG (39097)By: Veronica Oquendo DO On: 17-Jun-2012 Intent Veronica Oquendo DO Comments: nsr no acute chg Overnight Pulse Ox(90736)By: Mast On: 11-May-2012 Intent Suzy RUIZ Spirometry (75590)By: Azra JEAN-BAPTISTE, On: 17-Mar-2012 Intent Veronica Jurado DO Comments: poor technique- stable -- FLU VAC, SPLIT, >3 YEARS, INTRAMUSC On: 01-Sep-2011 Intent (35939)By: Kelsea Richards LPN Comments: given at health clinic not here Eprescribed prescriptions (G8553)By: On: 29-Jul-2011 Intent Kelsea Richards LPN Ultrasound - RenalBy: Ciesa LABOR DELIVERY RN, On: 15-Jul-2011 Intent Dasia PNEUM VAC ADLT/IMUMNOSPR, SBC/INTRM On: 09-May-2011 Intent (01940)By: Veronica Oquendo DO, DO, Kathleen IMMUNIZ ADMNIN, 1 VAC, SNGL/COMBO On: 09-May-2011 Intent ([id number])By: Veronica Oquendo DO, DO, Kathleen DXA, BONE DENSITY, AXIAL SKELETON On: 09-May-2011 Intent (22278)By: Kelsea Richards LPN MAMMOGRAM, SCREENING, BOTH BREASTS On: 09-May-2011 Intent (11550)By: Kelsea Richards LPN Clinical Breast Examination On: 09-May-2011 Intent (G0101)By: Kelsea Richards LPN TDAP VACCINE >7 IM (28668)By: Azra On: 16-Apr-2011 Veronica Pabon DO, DO, Kathleen Comments: Lot #[id number]/24/13Site-right deltoidgiven by: Alisa Vee LPN PULMONARY STRESS TEST/SIMPLE On: 04-Mar-2011 Intent (07569)By: Veronica Oquendo DO Comments: pt unable to complete fulol test due to shortess of breath. Pt completed 3 minutes of assessment. hh Veronica Oquendo DO EKG (11329)By: Veronica Oquendo DO On: 03-Mar-2011 Intent Veronica Oquendo DO Comments: nsr no acute changes Pulse Oximetry (05388)By: Devika LUU, On: 29-Jan-2011 Intent Kassandra Vargas Solu- Medrol Injection, 125mg On: 29-Jan-2011 Intent (J2930)By: Kassandra Fortune CNP Pulse Oximetry (44756)By: Bernardo RN, On: 29-Jan-2011 Intent Suzy IMMUNIZ ADMNIN, 1 VAC, SNGL/COMBO On: 04-Sep-2010 Intent (09298)By: Lisa Blood FLU VAC, SPLIT, >3 YEARS, INTRAMUSC On: 04-Sep-2010 Intent (47855)By: Lisa Blood Comments: Lot:[id number]:02/2011Dose:0.5MLRoute:IMSite:left deltoidGiven by: VALENTINA Saleem CT - Chest (IV Contrast Needed)By: On: 20-Jun-2010 Intent Veronica Oquendo DO, DO, Kathleen Echo CompleteBy: Veronica Oquendo DO On: 20-Jun-2010 Intent Veronica Oquendo DO Radiology - ChestBy: Kassandra Fortune CNP On: 27-May-2010 Intent E Aerosol Treatment (32616)By: Devika On: 27-May-2010 Intent Kassandra LUU Pulse Oximetry (15229)By: Devika LUU, On: 27-May-2010 Intent Kassandra Vargas Ultrasound - LiverBy: Azra JEAN-BAPTISTE, On: 07-Mar-2010 Intent Veronica Jurado DO Spirometry ([id number])By: Azra JEAN-BAPTISTE, On: 07-Mar-2010 Intent Veronica Jurado DO Comments: mild obstrucition EKG (21345)By: Veronica Oquendo DO On: 14-Dec-2009 Intent Veronica Oquendo DO Comments: nsr poor R wave progression-- will request old ekg to compare Spirometry (27337)By: Azra JEA-NBAPTISTE, On: 14-Dec-2009 Intent Veronica Jurado DO Comments: mild obstructive disease but some technique off Planned Medications INFUSION, NORMAL SALINE SOLUTION , 1000 CC Ordered: 14-Jul-2017 Pending Devika LUU Dasia INJECTION, KETOROLAC TROMETHAMINE, PER 15 MG Ordered: 12-May-2014 Pending Devika LUU Dasia INJECTION, KETOROLAC TROMETHAMINE, PER 15 MG Ordered: 04-Jul-2016 Pending Devika LUU Dasia INJECTION, METHYLPREDNISOLONE SODIUM SUCCINATE, UP TO 125 MG Ordered: 29-Jan-2011 Pending Devika LUU Dasia INJECTION, METHYLPREDNISOLONE SODIUM SUCCINATE, UP TO 125 MG Ordered: 25-Nov-2017 Pending Azra DOVeronica Azra DO, Veronica INJECTION, METHYLPREDNISOLONE SODIUM SUCCINATE, UP TO 125 MG Ordered: 27-Oct-2017 Pending Kelsea Lund INJECTION, METHYLPREDNISOLONE SODIUM SUCCINATE, UP TO 125 MG Ordered: 14-Aug-2017 Pending Azra DOShanonVeronica Azra DO, Veronica INJECTION, METHYLPREDNISOLONE SODIUM SUCCINATE, UP TO 125 MG Ordered: 05-Aug-2017 Pending Azra DOShanonVeronica Azra DO, Veronica INJECTION, METHYLPREDNISOLONE SODIUM SUCCINATE, UP TO 125 MG Ordered: 22-Jun-2017 Pending Kelsea Lund INJECTION, METHYLPREDNISOLONE SODIUM SUCCINATE, UP TO 125 MG Ordered: 17-Apr-2017 Pending Azra DO, Veronica Azra DO, Veronica INJECTION, METHYLPREDNISOLONE SODIUM SUCCINATE, UP TO 125 MG Ordered: 20-Aug-2016 Pending Azra DOShanonVeronica Azra DO, Veronica INJECTION, METHYLPREDNISOLONE SODIUM SUCCINATE, UP TO 125 MG Ordered: 13-Aug-2016 Pending Ciesa LABOR DELIVERY RN, Dasia INJECTION, METHYLPREDNISOLONE SODIUM SUCCINATE, UP TO 125 MG Ordered: 12-May-2016 Pending Veronica Oquendo DO, DO, Veronica INJECTION, METHYLPREDNISOLONE SODIUM SUCCINATE, UP TO 125 MG Ordered: 03-Aug-2015 Pending Veronica Oquendo DO DO, Veronica INJECTION, METHYLPREDNISOLONE SODIUM SUCCINATE, UP TO 125 MG Ordered: 03-Aug-2013 Pending Veronica Oquendo DO DO, Veronica INJECTION, METHYLPREDNISOLONE SODIUM SUCCINATE, UP TO 125 MG Ordered: 03-Jun-2013 Pending Ciesa LABOR DELIVERY RN, Dasia INJECTION, METHYLPREDNISOLONE SODIUM SUCCINATE, UP TO 125 MG Ordered: 01-Jan-2018 Pending Veronica Oquendo DO DO, Veronica INJECTION, METHYLPREDNISOLONE SODIUM SUCCINATE, UP TO 125 MG Ordered: 18-Aug-2018 Pending Ciesa LABOR DELIVERY RN, Dasia INJECTION, TRIAMCINOLONE ACETONIDE, NOT OTHERWISE SPECIFIED, [...] foot : DISCONTINUED - RENAL FUNCTION PANEL (50927) Indication: Gout of right foot Gout of right foot : DISCONTINUED - URIC ACID BLOOD (79854) Indication: Gout of right foot Hypertension with renal disease : DISCONTINUED - MAGNESIUM (84161) Indication: Hypertension with renal disease Hypertension with renal disease : DISCONTINUED - POTASSIUM SERUM (26885) Indication: Hypertension with renal disease Diarrhea : [...] Indication: Diabetes mellitus type II, controlled Encounters Phone Encounter On: 11-Nov-2018 14:58 Encounter Diagnosis: [...] The patient does have durable power of research attorney and living will. The patient has noticed nothing from the geriatic depression scale. Other providers contributing to the patient's care are vac press operator, squirrel worker, player piano technician and other:.Encounter Diagnosis: BMI 38.0-38.9,adult, Nonsmoker, [...] The patient does have durable power of research attorney and livin g will. The patient has noticed lack of energy. Other providers contributing to the patient's care are gastrologist, player piano technician and other: (pain management, podiatry).Encounter Diagnosis: [...] patient does not have durable power of research attorney or living will. The patient has noticed nothing from the geriatic depression s angelica. Other providers contributing to the patient's care are player piano technician and other:.Encounter Diagnosis: Annual Medicare Phyiscal [...] patient does not have durable power of research attorney or living will. The patient has [...] care from a hospital (inhaled hamburger and nepalese rice and she was in hosp from [...] providers contributing to the patient's care are squirrel worker (margaret saravia), player piano technician (dr. hayes) and other: (dr. zincdr. [...] providers contributing to the patient's care are squirrel worker (says has an appt with Dr Hammer this month at [facility] gastrologist (Michele), player piano technician (Dr Hayes) and urologist (Dr Mayes).Encounter [...]
--- OUTSIDE RECORDS SUMMARY | 2018-12-08 05:54 | XMS RPT_ITS | Continuity of Care Document ---
:1950 Author Organization [facility] Address [address] [facility] [address] [place] [address] Phone Care Team Providers Name Role Phone Veronica Oquendo DO Unavailable Octavio Delgado Unavailable Nghia Bautista MD Unavailable Lobito Kauffman DO Unavailable Derrell Palumbo Unavailable Unavailable Messenger, RADIUS GRINDER Kelsea Unavailable Unavailable Stephanie Rodriguez Unavailable Unavailable [...] occurred s/p surgery - saw cardio in [place] had stress test and it was normal [...] after 2weeksdriving to see Dr Ribeiro in [place] Status: Active CHRONIC OBSTRUCTIVE ASTHMA WITH (ACUTE) [...] DO, DO, Kathleen Start : 25-Aug-2018 Active Concord 5-325 MG Oral Tablet 1 (one) Tablet [...] DO, Kathleen Start : 25-Aug-2018 Active Pen [place] /16 31G X 5 MM Miscellaneous 1 [...] {Capsule} Refills: 0 Ordered:14-Jul-2017 Devika LUU Kassandra Vragas Start : 14-Jul-2017 End : 21-Jul-2017 Inactive [...] End : 10-Apr-2016 Inactive VITAMIN D (ERGOCALCIFEROL), [id number] (Oral Capsule) 1 (one) Capsule daily for [...] Discontinued Comments:Dispense mini needles CALCIUM + D, [phone]-IU (PO Cap) 2 qd for 0 days [...] 3 Views Result: Comments: See Note; NOTES: [facility] Imaging Services [address] [place] [address] Lumbar Spine 2 or 3 Views MR#: [id number] Acct: [id number] Name: SUGEY LING Rep #: [id number] : 1950 F 67 From: Dwight Choudhury DO PCP: Veronica Oquendo DO Status: REG CLI Study: Lumbar Spine 2 or 3 Views Date of Exam: 10/26/18 Exam# [id number] Ordering Dr: Chetan Medina MD STUDY: X-RA [...] CC: Chetan Medina MD; Veronica Oquendo DO Digital Retoucher: Signed 22-May-2018 Orthopedic Visit Report Result: Comments: See Note; NOTES: [facility] Orthopaedics AND Sports Medicine [address] [place] [address] OFFICE VISIT Date of Service: 05/11/18 MR#: [id number] Acct: [id number] Name: SUGEY LING Rep #: [id number] : 1950 Provider: Tia Chirinos MD Age/Sex: 67/F Location: [facility] Status: Signed Intake Intake Visit Reasons: LOW [...] [History Confirmed 01/07/18] Fluticasone 0.05% [Flonase Nasal [place]] 1 spray NASAL DAILY 06/21/17 [History Confirmed 01/07/18] Fluticasone/Salmeterol [Advair 500/50 Mcg Diskus] 1 puff INHALATION BID 06/21/17 [History Confirmed 01/08/18] Furosemide [Lasix] 40 mg PO DAILY PRN PRN 06/21/17 [History Confirmed 01/07/18] Insulin Detemir [Levemir (BKC)] 24 units SC QHS 06/21/17 [History Con firmed 01/08/18] [place]-3S/Dha/Epa/Fish Oil [Fish Oil 1,200 mg Softgel] 1 ea PO DAILY 06/21/17 [History Confirmed 01/07/18] Pantoprazole Sodium [Protonix] 40 mg PO BID 06/21/17 [History Confirmed 8] Tiotropium [place] [Spiriva Respimat] 2 puff IH DAILY 06/21/17 [...] nothin g. 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 [id number] Electronically Signed: Anam Larios MD at 7:57 EDT Tel [phone], Service jolly pport , CC: Veronica Oquendo DO Digital Retoucher: Signed 29-Jan-2018 Modified Barium Swallow Study Result: Comments: See Note; NOTES: [facility] Speech Pathology [address] [address] Modified Barium Swallow Study MR#: [id number] Acct: [id number] Name: SUGEY LING Rep #: [id number] : 1950 67 From: Eliezer Duke M.A., CFY-HYDROCRANE OPERATOR PRIMARY / SECONDARY DIAGNOSIS: dysphagia (R13.10) [...] Patien t inhaled pieces of hamburger and Austrian rice. 04/26/2014 underwent bronchoscopy with bronchial lavage and foreign body removal after aspirating rice during intake of hamburger and Austrian rice. 2017 CT/Chest revealed old granulomatous disease; no acute pulmonary abnormality; resolution of the right lower lobe infiltrate seen on the prior CT. 12/31/2017 CXR revealed cardiomegaly; pectus excavat um deformity; no acute abnormality is seen. 01/08/2018 underwent bronchoscopy with bronchial lavage and foreign body removal after aspirating rice during intake of Armenian food with resulting pneumoniti s of both food and emesis with bronchospasm, documentation reveals history of esophageal strictures with plans for lehr loader referral for possible esophageal dilatation. Patient reports [...] Thin liquids via cup (single sip): 1 Redstone thickened liquids via cup (single sip) : 1 Redstone thickened liquids via cup (single sip): 2 Redstone thickened liquids via cup (single sip): 1 [...] l functioning, with workup currently underway via lehr loader. Patient able to comprehend and express recommended [...] 1520 <Electronically signed by Eliezer Duke M.A., CFY-HYDROCRANE OPERATOR> Date Eliezer Duke M.A. CFY-HYDROCRANE OPERATOR Co-Signature Required for all Medicare patients Date/Time Co-Signature CC: 29-Jan-2018 Swallowing Function w/Video Result: Comments: See Note; NOTES: [facility] Imaging Services [address] [place] [address] Swallowing Function w/Video MR#: [id number] Acct: [id number] Name: SUGEY LING Rep #: [id number] : 1950 F 67 From: Anam Larios MD PCP: Veronica Oquendo DO Status: REG CL Study: Swallowing Function w/Video Date of Exam: 01/29/18 Exam# [id number] Ordering Dr: Isaías Stroud MD STUDY: SWALLOWING [...] Anam Larios MD at 14:25 EST Tel [phone], Service support , CC: Veronica Stroud Digital Retoucher: Signed 30-Dec-2017 Chest PA and Lateral Result: Comments: See Note; NOTES: [facility] Imaging Services [address] [place] [address] Chest PA and Lateral MR#: [id number] Acct: [id number] Name: SUGEY LING Rep #: [id number] : 1950 F 67 From: Anam Larios MD PCP: Veronica Oquendo DO Status: REG CLI Study: Chest PA and Lateral Date of Exam: 12/30/17 Exam# [id number] Ordering Dr: Octavio Delgado MD STUDY: X- [...] Anam Larios MD at 12:54 EST Tel [phone], Service support , CC: Veronica Oquendo DO; Octavio Delgado MD Digital Retoucher: Signed 22-Dec-2017 Chest PA and Lateral Result: Comments: See Note; NOTES: [facility] Imaging Services [address] [place] [address] Chest PA and Lateral MR#: [id number] Acct: [id number] Name: SUGEY LING Rep #: [id number] : 1950 F 67 From: Ronnie Bradford MD PCP: Veronica Oquendo DO Status: REG CLI Study: Chest PA and Lateral Date of Exam: 12/22/17 Exam# [id number] Ordering Dr: Kelsea Lund GLAZIER APPRENTICE-C STUDY: X-RAY C HEST REASON FOR EXAM: [...] , CC: NAKIA Lund; Veronica Oquendo DO Digital Retoucher: Signed 04-Dec-2017 Chest without Contrast Result: Comments: See Note; NOTES: [facility] Imaging Services [address] [place] [address] Chest without Contrast MR#: [id number] Acct: [id number] Name: SUGEY LING Rep #: [id number] : 1950 F 67 From: Rogelio Alston DO PCP: Veronica Oquendo DO Status: REG CLI Study: Chest without Contrast Date of Exam: 12/04/17 Exam# [id number] Ordering Dr: Octavio Delgado MD STUDY: CT [...] Rogelio Alston DO at 13:14 EST Tel [phone], Service support , CC: Veronica Oquendo DO; Octavio Delgado MD Digital Retoucher: Signed 17-Nov-2017 Emergency Department Summary Result: Comments: See Note; NOTES: [facility] Medical Records Department [address] [place] [address] Emergency Department Summary 11/16/17 1811 MR#: [id number] Acct: [id number] Name: SUGEY LING Rep #: [id number] : 1950 66 From: Lobito Lee MD [...] a prednisone taper and sees a pul neurosurgery physician. I believe that she should continue her [...] Aspiration event This note was generated with [employer] dictation software. It may contain incorrect words, [...] your Primary Care Provider. Call [facility] ([phone]) or report to the closest Emergency Room. Call 911 if necessary. 11/17/17 0054 <Electronically signed by Lobito Lee MD> Date Lobito Lee MD Cosigner Signature (If Indicated): Date CC: Veronica Oquendo DO 16-Nov-2017 Chest PA and Lateral Result: Comments: See Note; NOTES: [facility] Imaging Services [address] [place] [address] Chest PA and Lateral MR#: [id number] Acct: [id number] Name: SUGEY LING Devin Rep #: [id number] : 1950 F 66 From: Ivone Guevara MD PCP: Veronica Oquendo DO Status: [facility] ER Study: Chest PA and Lateral Date of Exam: 11/16/17 Exam# [id number] Ordering Dr: Lobito Lee MD STUDY: X-RAY [...] Fax CC: Veronica Oquendo DO; Lobito Lee Digital Retoucher: Signed 09-Oct-2017 Chest PA and Lateral Result: Comments: See Note; NOTES: [facility] Imaging Services [address] [address] Chest PA and Lateral MR#: [id number] Acct: [id number] Name: SUGEY LING Rep #: [id number] : 1950 F 66 From: Anam Larios MD PCP: Veronica Oquendo DO Status: [facility] CLI Study: Chest PA and Lateral Date of Exam: 10/09/17 Exam# [id number] Ordering Dr: Will Oliveira MD STUDY: X-RAY [...] Anam Larios MD at 15:14 EST Tel [phone], Service support , CC: Veronica Oquendo DO; Will Oliveira MD Digital Retoucher: Signed 15-Jul-2017 PT D/C Summary (1) Result: Comments: See Note; NOTES: [facility] [address] [place] [address]. [address] [place] [id number] Fax REHABILITATION SERVICES [facility] SUMMARY MR#: [id number] Acct: [id number] Name: SUGEY LING Rep #: [id number] : 1950 66 From: Nghia Willis PT, Cert. MDT, OCS Referring Dr.: Chetan Medina MD Status: REG RCR [facility] [employer] HP - PT D/C Summary [...] feel free to yamilka l me at [phone]. Thank you for the referral of this patient. Sincerely, Nghia Willis, PT, <Electronically signed by Nghia Willis PT, Cert. MDT, OCS> 07/15/17816 CC: Chetan Medina MD; Veronica Oquendo DO WENCESLAO Signed 11-Jul-2017 Emergency Department Summary Result: Comments: See Note; NOTES: [facility] Medical Records Department [address] [place] [address] Emergency Department Summary 06/21/17 0738 MR#: [id number] Acct: [id number] Name: SUGEY LING Rep #: [id number] : 1950 66 From: Rufino Vela MD [...] ED Arthritis Gout Prescriptions: Hydrocodone Bitart/Apap 5-325 [Concord 5/325] 1 - 2 tablet PO Q4H PRN PRN #7 tablet PRN Reason: Pain Referrals: Veronica Oquendo, DO [Primary Care Provider] - What to do if you have Problems For any increased pain, shortness of breath, bleeding, na usea or vomiting, chest pain, or any unexpected problems, contact your Primary Care Provider. Call [facility] ([phone]) or report to the closest Emergency Room. Call 911 if necessary. 07/11 0903 <Electronically signed by Rufino Vela MD> Date Rufino Vela MD Cosigner Signature (If Indicated): Date ___ CC: Veronica Oquendo DO 21-Jun-2017 Discharge Instruction Result: Comments: See Note; NOTES: [facility] Medical Records Department [address] [place] [address] Discharge Instruction 06/21/17739 MR#: [id number] Acct: [id number] Name: Sissy LING SCLou A Rep #: [id number] : 1950 66 From: Rufino Vela MD PCP: Veronica Oquendo DO Status: REG ER ED Disposition - Plan for ED Patient: Chief Complaint: Lower Extremity Injury Instruction s: ED Arthritis Gout Prescriptions: Hydrocodone Bitart/Apap 5-325 [Concord 5/325] 1 - 2 tablet PO Q4H [...] PT (1) Result: Comments: See Note; NOTES: [facility] [address] [place] [address] Fax REEVALUATION / MEDICARE RECERTLei [facility] 4d PHYSICAL THERAPY MR#: [id number] Acct: [id number] Name: SUGEY LING Rep #: [id number] : 1950 66 From: Nghia Willis PT, [...] do not hesitate to contact me at [phone] by phone or if you have questions or concerns regarding this new plan of care! Sincerely, Nghia Willis PT, <Electronically signed by Nghia Willis PT, Cert. T, [facility]> 06/19/17 1533 CC: Chetan Medina MD; Veronica flowers DO WENCESLAO Signed For Medicare only, by signing this I certify the plan of care. Physicians Signature Date 09-Jun-2017 L/S Spine Comp/w Bending Views Result: Comments: See Note; NOTES: [facility] Imaging Services [address] [place] [address] [place] 4d L/S Spine Comp/w Bending Views MR#: [id number] Acct: [id number] Name: DAVE LING Rep #: [id number] : 1950 F 66 From: Ronnie Bradford MD PCP: Veronica Oquendo DO Status: REG CLI Study: L/S Spine Comp/w Bending Views Date of Exam: 06/09/17 Exam# [id number] Ordering Dr: Alicia Chirinos MD STUDY: X-RAY [...] CC: Tia Chirinos M.D.; Veronica Oquendo DO Digital Retoucher: Signed 26-May-2017 Re-Evaluation - PT (1) Result: Comments: See Note; NOTES: [facility] [address] [place] [address]. [address] [place] [address] Fax [facility]ATION [facility] 4d PHYSICAL THERAPY MR#: [id number] Acct: [id number] Name: HORTENSIASUGEY Devin Rep #: [id number] : 1950 66 From: Nghia Willis PT, [...] do not hesitate to contact me at [phone] by phone or if you have questions or concerns regardin g this new plan of care! Sincerely, Nghai Willis PT, <Electronically signed by Nghia Willis PT, Cert. MDT, OCS> 05/26/17 1440 CC: Chetan Medina MD; Veronica Oquendo DO DD: JLA Signed For Medicare only, by signing this I certify the plan of care. Physicians Signature Date 12-May-2017 Dexa Bone Density Study (HP) Result: Comments: See Note; NOTES: [facility] Imaging Services [address] [place] [address] [place] 4d Dexa Bone Density Study (HP) MR#: [id number] Acct: [id number] Name: SUGEY LING Rep #: [id number] : 1950 F 66 From: Anam Larios MD PCP: Azra DO,Veronica Status: REG CLI Study: Dexa Bone Density Study (HP) Date of Exam: 05/12/17 Exam# [id number] Ordering Dr: Veronica Bridges DO STUDY: DUAL [...] Anam Larios MD at 12:45 EDT Tel [phone], Service support , CC: Veronica Oquendo DO Digital Retoucher: Signed 12-May-2017 SCREENING MAMM (CAD), BILAT Result: Comments: See Note; NOTES: [facility] Imaging Services [address] [place] [address] [place] 4d SCREENING MAMM (CAD), BILAT MR#: [id number] Acct: [id number] Name: SUGEY LING Rep #: [id number] : 1950 F 66 From: Royce Phipps MD PCP: Veronica Oquendo DO Status: REG CLI Study: SCREENING MAMM (CAD), BILAT Date of Exam: 05/12/17 Exam# [id number] Ordering Dr: Bren Oquendo DO MAMMOGRAPHY - [...] delay biopsy of a clinically suspicious abnormality. [id number] Electronically Signed: Royce Phipps MD at 13:24 EDT Tel , Service support [phone], CC: Veronica Oquendo DO Digital Retoucher: Signed 30-Apr-2017 Inital Evaluation (1) - PT Result: Comments: See Note; NOTES: [facility] Physical Therapy [address] [place], [place] [address] Fax REHABILITATION SERVICES INITIAL EVALUATION MR#: [id number] Acct: [id number] Name: SUGEY LING Rep #: [id number] [...] bowel/bladder problems. Physical therapy went well in [place], she was able to walk again. Social: [...] to be FAXED BACK to us at [phone] for Medicare purposes. Please let me know if there are questions or concerns rega rding this plan of care. Physician Signature: Date: <Electronically signed by Nghia Willis PT, Cert. T, OCS> 04/30/17 3438 CC: Chetan Medina MD; Veronica Oquendo DO KERRIA Signed For Medicare only, by signing this I certify the plan of care. Physicians Signature Date 24-Apr-2017 Spine Lumbar (Routine) Result: Comments: See Note; NOTES: [facility] Imaging Services [address] [place] [address] [facility] 4d Spine Lumbar (Routine) MR#: [id number] Acct: [id number] Name: SUGEY LING Rep #: [id number] : 1950 F 66 From: Ronnie Bradford MD PCP: Veronica Oquendo DO Status: REG CLI Study: Spine Lumbar (Routine) Date of Exam: 04/24/17 Exam# [id number] Ordering Dr: [facility] LUMBAR SPINE WITHOUT CONTRAST REASON FOR [...] CC: Chetan Medina MD; Veronica Oquendo DO Digital Retoucher: Signed 15-Apr-2017 Hips B/L min 2 views w/ Pelvis Result: Comments: See Note; NOTES: [facility] Imaging Services [address] [place] [address] [place] 4d Hips B/L min 2 views w/ Pelvis MR#: [id number] Acct: [id number] Name: DAVE LING Rep #: [id number] : 1950 F 66 From: Jeremiah Ramos MD PCP: Veronica Oquendo DO Status: REG CLI Study: Hips B/L min 2 views w/ Pelvis Date of Exam: 04/15/17 Exam# [id number] Ordering Dr: Chetan Hubbard MD STUDY: X-RAY [...] CC: Chetan Medina MD; Veronica Oquendo DO Digital Retoucher: Signed 16-Jul-2016 Spirometry ([id number]) Result: 16-Jul-2016 ELECTROCARDIOGRAM, COMPLETE (ECG) ([id number]) Comments: no new chg cmpared to last ekg Result: [MEASUREMENTS ANALYSIS] Date of Test: 07/16/2016 11:05:02; Heart Rate: 69; VT Interval: 144; QRS: 104; QT Interval: 394; Corrected QT Interval (QTc): 409; P Wave Walters: 56; QRS Wave Walters: 55; T Wave Walters : 90; Blood Pressure: 122/78 [ECG DIAGNOSTIC STATEMENTS] Date of Test: 07/16/2016 11:05:02; Summary: Sinus Rhythm Low voltage in limb leads. - Negative T- waves -Possible Anterior ischemia. ABNORMAL 04-Jul-2016 Knee 4 or More Views Result: Comments: See Note; NOTES: [facility] Imaging Services [address] [address] [place] 4d Knee 4 or More Views MR#: [id number] Acct: [id number] Name: SUGEY LING Rep # : [id number] : 1950 F 65 From: Ivone Guevara MD PCP: Veronica Oquendo DO Status: REG CLI Study: Knee 4 or More Views Date of Exam: 07/04/16 Exam# [id number] Ordering Dr: Kassandra Fortune STUDY: X-RAY - [...] at 16:23 EDT Tel , Service support [phone], CC: Kassandra Fortune; Veronica Oquendo DO Digital Retoucher: Signed 03-Jun-2016 Emergency Department Summary Result: Comments: See Note; NOTES: [facility] Medical Records Department [address] [place] [address] Emergency Department Summary MR#: [id number] Acct: [id number] Name: SUGEY LING Rep #: [id number] : 1950 65 From: Ronaldo Verduzco MD [...] C: Veronica Reeder MD T: NTS JOB: [id number] 06/03/16 1307 <Electronically signed by Ronaldo Verduzco MD> Date Ronaldo Verduzco MD Cosigner Signature (If Indicated): Date CC: Veronica Oquendo DO; Will Oliveira MD Date Dictated: 06/03/16 1232 Date Transcribed: 06/03/16 123 Digital Retoucher: Signed 03-Jun-2016 Discharge Instruction Result: Comments: See Note; NOTES: [facility] Medical Records Department [address] [place] [address] Discharge Instruction 06/03/16 1230 MR#: [id number] Acct: [id number] Name: SUGEY LING Rep #: [id number] : 1950 65 From: Ronaldo Verduzco MD PCP: Veronica Oquendo DO Status: REG ER ED Disposition - Plan for ED Patient: Disposition: Home or Assisted Living C [facility] Complaint: Fall Instructions: ED Fracture, Shoulder, [...] problems, contact your doctor. Call [facility] ([phone]) or report to the closest Emergency Room. Call 911 if necessary. 06/03/16 1234 <El ectronically signed by Ronaldo Verduzco MD> Date Ronaldo Verduzco MD Cosigner Signature (If Indicated): Date CC: Veronica Oquendo DO 03-Jun-2016 Shoulder min 2 Views Result: Comments: See Note; NOTES: [facility] Imaging Services [address] [place] [address] [place] 4d Shoulder min 2 Views MR#: [id number] Acct: [id number] Name: SUGEY LING Rep #: [id number] : 1950 F 65 From: Anam Larios MD PCP: Veronica Oquendo DO Status: REG ER Study: Shoulder min 2 Views Date of Exam: 06/03/16 Exam# [id number] Ordering Dr: Ronaldo Verduzco MD STUDY: X-RAY [...] Anam Larios MD at 12:42 EDT Tel [phone], Service support [phone], RAD/Shoulder min 2 Views IMPRESSION: I suspect a nondisplaced impacted fracture of the surgical neck of the humerus. Electronically Signed: Anam rinaldi MD at 12:42 EDT Tel [phone], Service support [phone], CC: Veronica Oquendo DO; Ronaldo Verduzco MD Digital Retoucher: Signed 13-May-2016 L/S Spine Min 4 Views Result: Comments: See Note; NOTES: [facility] Imaging Services [address] [place] [address] [place] 4d L/S Spine Min 4 Views MR#: [id number] Acct: [id number] Name: SUGEY LING Rep #: [id number] : 1950 F 65 From: Anam Larios MD PCP: Veronica Oquendo DO Status: REG CLI Study: L/S Spine Min 4 Views Date of Exam: 05/13/16 Exam# [id number] Ordering Dr: Chetan Luo MD STUDY: X-RAY [...] Anam Larios MD at 8:31 EDT Tel [phone], Service support [phone], RAD/L/S Spine Min 4 Views IMPRESSION: Status post laminectomy and fusion at the L4-L5 and L5-S1 levels with prosthetic disc insertion. Grade 2 anterior listhesis of L5 on S1. Electron ically Signed: Anam Larios MD at 8:31 EDT Tel [phone], Service support [phone], CC: Chetan Medina MD; Veronica Oquendo DO Digital Retoucher: Signed 13-May-2016 Chest WITH Contrast Result: Comments: See Note; NOTES: [facility] Imaging Services [address] [address] [place] 4d Chest WITH Contrast MR#: [id number] Acct: [id number] Name: KECIASissy [facility] A Rep #: [id number] : 1950 F 65 From: Anam Larios MD PCP: Veronica Oquendo DO Status: REG CLI Study: Chest WITH Contrast Date of Exam: 05/13/16 Exam# [id number] Ordering Dr: Veronica Oquendo DO STUDY: CT [...] Anam Larios MD at 8:42 EDT Tel [phone], Service support , CC: Veronica Oquendo DO Digital Retoucher: Signed 09-May-2016 Bilat Scrn Digital AND CAD Result: Comments: See Note; NOTES: [facility] Imaging Services [address] [place] [address] [place] 4d Bilat Scrn Digital AND CAD MR#: [id number] Acct: [id number] Name: HORTENSIASUGEY Devin Rep #: [id number] : 1950 F 65 From: Anam Larios MD PCP: Veronica Oquendo DO Status: REG CLI Study: Bilat Scrn Digital AND CAD Date of Exam: 05/09/16 Exam# [id number] Order ing Dr: Veronica Oquendo DO MAMMOGRAPHY [...] delay biopsy of a clinically suspicious abnormality. [id number] Electronically Signed: Anam Larios MD at 10:46 EDT Tel [phone], rvice support [phone], CC: Veronica Oquendo DO Digital Retoucher: Signed 09-May-2016 Chest PA and Lateral Result: Comments: See Note; NOTES: [facility] Imaging Services [address] [place] [address] [place] 4d Chest PA and Lateral MR#: [id number] Acct: [id number] Name: SUGEY LING Rep #: [id number] : 1950 F 65 From: Anam Larios MD PCP: Veronica Oquendo DO Status: [facility] CLI Study: Chest PA and Lateral Date of Exam: 05/09/16 Exam# [id number] Ordering Dr: Veronica Davidson DO STUDY: X-RAY [...] Anam Larios MD at 9:41 EDT Tel [phone], Service support [phone], RAD/Chest PA and Lateral IMPRESSION: Focal area of increased markings in the right midlung. Followup is recommended. Electronically Signed: Anam Larios MD at 9:41 EDT Tel [phone], Service support [phone], CC: Veronica Oquendo DO Digital Retoucher: Signed 15-Apr-2016 Knee 4 or More Views Result: Comments: See Note; NOTES: [facility] Imaging Services [address] [address] [place] 4d Knee 4 or More Views MR#: [id number] Acct: [id number] Name: SUGEY LING Rep #: [id number] : 1950 F 65 From: Royce Phipps MD PCP: Veronica Oquendo DO Status: REG CLI Study: Knee 4 or More Views Date of Exam: 04/15/16 Exam# [id number] Ordering Dr: Tad Oquendo DO STUDY: X-RAY [...] 10:30 EDT Tel , Servic e support [phone], RAD/Knee 4 or More Views IMPRESSION: Degenerative arthrosis. Electronically Signed: Royce Phipps MD at 10:30 EDT Tel , Service support [phone], CC: Veronica Oquendo DO Digital Retoucher: Signed 15-Apr-2016 Knee 4 or More Views Result: Comments: See Note; NOTES: [facility] Imaging Services [address] [place] [address]1976 Verdana 4d Knee 4 or More Views MR#: [id number] Acct: [id number] Name: SUGEY LING Rep #: [id number] : 1950 F 65 From: Royce Phipps MD PCP: Veronica Oquendo DO Status: REG CLI Study: Knee 4 or More Views Date of Exam: 04/15/16 Exam# [id number] Ordering Dr: Tad Oquendo DO STUDY: X-RAY [...] 10:39 EDT Tel , Ser vice support [phone], RAD/Knee 4 or More Views IMPRESSION: Degenerative arthrosis. Electronically Signed: Royce Phipps MD at 10:39 EDT Te l , Service support [phone], CC: Veronica Oquendo DO Digital Retoucher: Signed 30-Jul-2015 Spirometry (78325) Result: 19-Jul-2015 Spirometry (05503) Comments: mild obstruction - asx Result: 08-May-2015 Bilat Scrn Digital AND CAD Result: Comments: See Note; NOTES: [facility] Imaging Services [address] [place] [address] Breast Imaging Report MR#: [id number] Acct: [id number] Name: SUGEY LING Rep #: [id number] : 1950 F 64 From: Anam Larios MD PCP: Veronica Oquendo DO Status: REG CLI Study: Bilat Scrn Digital AND CAD Date of Exam: 05/08/15 Exam# [id number] Ordering Dr: Pippa Oquendo DO MAMMOGRAPHY - [...] Jj Larios MD at 10:50 EDT Tel [phone], Service support [phone], CC: Veronica Oquendo DO Digital Retoucher: Signed 08-May-2015 Dexa Bone Density Study (HP) Result: Comments: See Note; NOTES: [facility] Imaging Services [address] [place] [address]98 Bone Density Report MR#: [id number] Acct: [id number] Name: SUGEY LING Rep #: [id number] : 1950 F 64 From: Anam Larios MD PCP: Veronica Oquendo DO Status: REG CLI Study: Dexa Bone Density Study () Date of Exam: 05/08/15 Exam# [id number] Ordering Dr: Pippa Oquendo DO STUDY: DUAL [...] Anam Larios MD at 15:32 EDT Tel [phone], Service support [phone], CC: Veronica Oquendo DO Digital Retoucher: Signed 27-Apr-2015 Chest PA and Lateral Result: Comments: See Note; NOTES: [facility] Imaging Services [address] [place] [address] Radiology Report MR#: [id number] Acct: [id number] Name: SUGEY LING Rep #: [id number] : 1950 F 64 From: Lilian Dominguez MD PCP: Veronica Oquendo DO Status: REG CLI Study: Chest PA and Lateral Date of Exam: 04/27/15 Exam# [id number] Ordering Dr: Veronica Oquendo DO STUDY : [...] MD at 22:33 EDT , Service support [phone], RAD/Chest PA and Lateral IMPRESSION: No acute cardiopulmonary findings or changes. Mild hyper expansion and stable mild chronic lung changes. Stigmata of prior granulomatous disease. Atherosclerosis. Demineralized osseous structures and dextroscoliosis. Electronically Signed: Lilian Dominguez MD at 22:33 EDT , Service support [phone], CC: Veronica Oquendo DO Digital Retoucher: Signed 31-May-2014 Foot min 3 Views Result: Comments: See Note; NOTES: [facility] Imaging Services [address] [place] [address] Radiology Report MR#: [id number] Acct: [id number] Name: SUGEY LING Rep #: [id number] : 1950 F 63 From: Celso Guerrero DO PCP: Veronica Oquendo DO Status: REG CLI Study: Foot min 3 Views Date of Exam: 05/31/14 Exam# [id number] Ordering Dr: Jade Benson MD STUDY: X-RAY [...] at 9:32 EDT Tel , Service support [phone], CC: Veronica Oquendo DO; Jade Benson MD Digital Retoucher: Signed 31-May-2014 Foot min 3 Views Result: Comments: See Note; NOTES: [facility] Imaging Services [address] [place] [address] Radiology Report MR#: [id number] Acct: [id number] Name: SUGEY LING Rep #: [id number] : 1950 F 63 From: Celso Guerrero DO PCP: Veronica Oquendo DO Status: REG CLI Study: Foot min 3 Views Date of Exam: 05/31/14 Exam# [id number] Ordering Dr: Jade Benson MD STUDY: X-RAY [...] DO at 9:34 EDT , Service support [phone], CC: Veronica qOuendo DO; Jade Benson MD Digital Retoucher: Signed 31-May-2014 Hand Min 3 Views Result: Comments: See Note; NOTES: [facility] Imaging Services [address] [place] [address] Radiology Report MR#: [id number] Acct: [id number] Name: SUGEY LING Rep #: [id number] : 1950 F 63 From: Celso Guerrero DO PCP: Veronica Oquendo DO Status: REG CLI Study: Hand Min 3 Views Date of Exam: 05/31/14 Exam# [id number] Ordering Dr: Jade Benson MD STUDY: X-RAY [...] DO at 9:42 EDT , Service support [phone], CC: Veronica Oquendo DO; Jade Benson MD Digital Retoucher: Signed 31-May-2014 Hand Min 3 Views Result: Comments: See Note; NOTES: [facility] Imaging Services [address] [place] [address] Radiology Report MR#: [id number] Acct: [id number] Name: SUGEY LING Rep #: [id number] : 1950 F 63 From: Celso Guerrero DO PCP: Veronica Oquendo DO Status: REG CLI Study: Hand Min 3 Views Date of Exam: 05/31/14 Exam# [id number] Ordering Dr: Jade Benson MD STUDY: X-RAY [...] at 9:43 EDT , Servic e support [phone], RAD/Hand Min 3 Views IMPRESSION: Osteopenia with degenerative changes. No acute fracture demonstrated. Electronically Signed: Ashok keith DO at 9:43 EDT , Service support [phone], CC: Veronica Oquendo DO; Jade Benson MD Digital Retoucher: Signed 19-May-2014 Chest PA and Lateral Result: Comments: See Note; NOTES: [facility] Imaging Services [address] [place], [place] [address] Radiology Report MR#: [id number] Acct: [id number] Name: SUGEY LING Rep #: [id number] : 1950 F 63 From: Marciano Fountain MD PCP: Status: REG CLI Study: Chest PA and Lateral Date of Exam: 05/19/14 Exam# [id number] Ordering Dr: Veronica Oquendo DO STUDY: X-RAY [...] MD at 5:44 EDT , Service support [phone], CC: Veronica Oquendo DO Digital Retoucher: Signed 18-Apr-2014 EKG (41703) Comments: nsr no acute chg Result: [MEASUREMENTS ANALYSIS] Date of Test: 04/18/2014 09:33:28; Heart Rate: 72; VT Interval: 148; QRS: 108; QT Interval: 392; Corrected QT Interval (QTc): 413; P Wave Walters: 63; QRS Wave Walters: 59; T Wave Walters : 66; Blood Pressure: 138/62 [ECG DIAGNOSTIC STATEMENTS] Date of Test: 04/18/2014 09:33:28; Summary: Sinus Rhythm Low voltage in limb leads. - Negative precordial T-waves. ABNORMAL 16-Sep-2013 Bilat Scrn Digital & CAD Result: Comments: See Note; NOTES: [facility] Imaging Services [address] [place] [address] Breast Imaging Report MR#: [id number] Acct: [id number] Name: SUGEY LING Rep #: [id number] : 1950 F 62 From: Anam Larios MD PCP: Veronica Oquendo DO Status: REG CLI Exam# [id number] Ordering Dr: Veronica Oquendo DO MAMMOGRAPHY - [...] September 16, 2013 at 9:43:10 AM EDT [phone] Electronically Signed GP/GP If you are the referring physician and would like to consult with the radiologist who provided this interpretation, please contact Anam Webb i, M.D. at [phone]. If this radiologist is unavailable, you will be directed to another radiologist to assist. If you are a patient with a question regarding this report, please contact your re ferring physician directly. Professional Interpretation Provided By: [email or web address], Phone , These documents contain legally protected [...] of these documents. CC: Veronica Oquendo DO Digital Retoucher: Signed Family History Unknown Family Member Name [...] kg/m2 Body Surface Area Calculated 1.85 m2 03-Ypi-486747:51 Temperature 98.4 f Comments: Method: Tympanic Respiration [...] Surface Area Calculated 1.86 m2 :39 Comments: [facility] and had a glaucoma test donehearing [...] kg/m2 Body Surface Area Calculated 1.89 m2 75-Eai-365696:17 Comments: [facility] and had a glaucoma test donehearing [...] kg/m2 Body Surface Area Calculated 1.9 m2 71-Igl-490459:20 Comments: 138/70 2nd bp Pulse 96 /min [...] 1.83 m2 Results Date Description Value Details 32-Ywe-980113:23 Microscopic Examination Comments: PATIENT WAS FASTINGPERFORMED BY: [address] [id number] BY: [employer]70 [facility] [id number] Bacteria Few (Normal) Epithelial Cells (non renal) 0-10 {/hpf} (Normal) Range: 0 - 10 RBC 0-2 {/hpf} (Normal) Range: 0 - 2 WBC 0-5 {/hpf} (Normal) Range: 0 - 5 67-Ern-661809:23 CALCIFIDIOL (04043) VIT D Comments: PATIENT WAS FASTINGPERFORMED BY: [address] [id number] BY: Branch Tvrcpo8170 [facility] [id number] 25 Vitamin D, 25-Hydroxy 47.6 ng/mL (Normal) Range: 30.0-100.0 Comments: Vitamin D deficiency has been defined by the [place] of[place]icine and an Endocrine Society practice guideline as alevel of serum 25-OH vitamin D less than 20 ng/mL (1,2).The Endocrine Society went on to further define vitamin Dinsufficiency as a level between 21 and 29 ng/mL (2).1. IOM ([place] of Medicine). 2010. Dietary reference intakes for calcium and D. [place]: The National Academies Press.2. Stephon MF, Ana ROY, Alka ROMERO, et al. Evaluation, treatment, and prevention of vitamin D deficiency: an Endocrine Society clinical practice guideline. JCEM. 2010; 96(7):1911-30. 47-Erx-594934:23 TSH (28237) Comments: PATIENT WAS FASTINGPERFORMED BY: [employer] [place] [address] [id number] BY: [facility] [id number] TSH 2.870 {uIU/mL} (Normal) Range: 0.450-4.500 91-Uvo-215307:23 URINALYSIS, W/ MICRO Comments: PATIENT WAS FASTINGPERFORMED BY: [address] [id number] BY: [employer] [place] [id number] (06188) Microscopic Examination See below: (Normal) Comments: Microscopic was indicated and was performed. Nitrite, Urine Positive (Abnormal) Urobilinogen,Semi-Qn 0.2 mg/dL (Normal) Range: 0.2-1.0 Bilirubin Negative (Normal) Occult Blood Negative (Normal) Ketones Negative (Normal) Glucose Negative (Normal) Protein Negative (Normal) WBC Esterase 1+ (Abnormal) Appearance Clear (Normal) Urine-Color Yellow (Normal) pH 6.5 (Normal) Range: 5.0-7.5 Specific Cisco 1.020 (Normal) Range: 1.005-1.030 23-Emm-435137:23 MICROALBUMIN: CREATININE Comments: PATIENT WAS FASTINGPERFORMED BY: [address] [id number] BY: [employer] [id number] RATIO (45573) AND (76927) Alb/Creat Ratio 6.4 {mg/g_creat} (Normal) Range: 0.0-30.0 Comments: Normal: 0.0 - 30.0 Albuminuria: 31.0 - 300.0 Clinical albuminuria: >300.0 Albumin, Urine 4.4 ug/mL (Normal) Creatinine, Urine 68.8 mg/dL (Normal) 27-Xlq-685374:23 METABOLIC PANEL, Comments: PATIENT WAS FASTINGPERFORMED BY: BN [facility] Eeivrfuwli0102 [facility] [id number] BY: CB [facility] Ckpfzi1291 [facility] [id number] COMPREHENSIVE (23844) ALT (SGPT) 18 [iU]/L (Normal) Range: 0-32 [...] 8-27 Glucose 120 mg/dL (Abnormal) Range: 65-99 83-Cod-993063:23 LIPOPROTEIN, BLD, BY NMR Comments: PATIENT WAS FASTINGPERFORMED BY: BN [facility] Npvyrvdhcg6538 [facility] [id number] BY: CB [facility] Qbhwpl3685 [facility] [id number] (42224) LP-IR Score 63 (Abnormal) Comments: INSULIN RESISTANCE MARKER <--Insulin Sensitive Insulin Resistant--> Percentile in Reference PopulationInsulin Resistance ScoreLP-IR Score Low 25th 50th 75th High <27 27 45 63 >63LP-IR Score is inaccurate if patient is non-fasting. .The LP-IR score is a laboratory developed i [facility] that has beenassociated with insulin resistance and [...] 1600 - 2000 Very High > 2000 53-Kyl-367712:23 CBC W/AUTO DIFF WBC Comments: PATIENT WAS FASTINGPERFORMED BY: BN [facility] Jeuvokxucu0445 [facility] [id number] BY: CB [facility] Smzzmx2617 [facility] [id number] (63889) Immature Grans (Abs) 0.0 {x10E3/uL} (Normal) Range: [...] (Normal) Range: 3.4-10.8 :27 HgA1C , Office (98718) HgA1C , Office 7.4 % (Abnormal) Range: 4.6 - 7.1 :27 Blood Glucose , Office (05526) Blood Glucose , Office 143 (Normal) 5-Uxk-606626:21 CBC-Complete Blood Cnt No Diff Comments: [facility] [address] [place], [place], [phone] MPV 9.8 fL (Normal) Range: 6.2-12.0 PLT [...] 4.2-5.4 WBC 7.0 K/mm3 (Normal) Range: 4.4-11.0 8-Elp-888529:21 Magnesium Comments: [facility] [address] [place], [address] MG 1.9 mg/dL (Normal) Range: 1.6-2.6 0-Rwi-890312:21 Protein+Creatinine Ratio,Urine Comments: [facility] [address] [place], [address] PROT:CRE RATIO 116 {mg/g_CRE} (Normal) Range: 0-200 PROTEIN,UR.RAN. 8.6 mg/dL (Normal) UR CREAT 74.00 mg/dL (Normal) 6-Yoh-184129:21 PTHIN 36.7 pg/mL (Normal) Comments: [facility] [address] [place], [address] Range: 18.4-80.1 9-Fpb-265808:21 Renal Profile Comments: [facility] [address] [place], [place], [address] CO2 27.0 mmol/L (Normal) Range: 21.0-32.0 CL [...] A.D.A. criteria.Please note revised GLUCOSE reference range cedxwnvqj09/02/2018. 2-Pdu-590260:21 Uric Acid Comments: [facility] [address] [place], [place], [address] URIC 5.6 mg/dL (Normal) Range: 2.6-6.0 Comments: The drugs N-Acetylcysteine and Metamizole may falselydepress this assay. 1-Fxn-432322:21 Vitamin D,25 Hydroxy Comments: [facility] [address] [place], [address] Vitamin D 25-OH 32.8 ng/mL (Normal) Range: 29.95-100.01 Comments: Vitamin D 25(OH) Status Range Deficiency <20 ng/mL (50nmol/L) Insuffciency 20 - 30 ng/mL (50 - 75 nmol/L) Sufficiency 30 - 100 ng/mL (75 - 250 nmol/L) Toxicity >100 ng/mL (>250 nmol/L) :59 URIC ACID BLOOD (81572) Comments: PATIENT NOT FASTINGPERFORMED BY: [facility] HospitalStebzy1088 [facility] [id number] Uric Acid 8.7 mg/dL (Abnormal) Range: 2.5-7.1 Comments: Therapeutic target for gout patients: <6.0 :34 HgA1C , Office (13165) HgA1C , Office 6.5 % (Normal) Range: 4.6 - 7.1 :33 Blood Glucose , Office (82254) Blood Glucose , Office 103 (Normal) :32 Basic Metabolic Profile (BMP) Comments: [facility] [address] [place], [address] GAP 3 (Abnormal) Range: 5-15 CO2 31.0 [...] A.D.A. criteria.Please note revised GLUCOSE reference range hjoasprvp15/02/2018. :36 HgA1C , Office (17831) HgA1C , Office 6.6 % (Normal) Range: 4.6 - 7.1 :36 Blood Glucose , Office (56584) Blood Glucose , Office 186 (Normal) Comments: not fasting 6-Hcf-531367:28 Miscellaneous Lab Procedure Comments: Comments: TRAMADOL URINE [id number](s) Ordered: URINE TOXICOLOGY [id number] RUN LOWEST [facility] [address] [facility] [facility] [address] [place], [address] [facility] Comments: [id number] 6+OXYCODONE-BUND (ng/mL)DRUG RESULT SCREEN CUTOFF____ Amphetamines,Urine Negat LAB (Normal) emy ng/mL 1000Amphetamine test includes Amphetamine and Methamphetamine.Barbiturates Negative ng/mL 200Benzodiazepines Negative ng/mL 200Cannabinoid TEST Negative ng/mL 20Cocaine (Metab) Negative ng/mL 300Opiates Negative ng/mL 300 Opiates test includes Codeine, Morphine, Hydromorphone, [place] codone.Oxycodone/Oxymorphone,Urine Negative ng/mL 300 Test includes Oxydodone and Oxymorphone. TESTING PERFORMED AT [facility]. ORIGINAL REPORT ON FILE IN LAB CONTAINS ADDITIONAL TEST SITE INFORMATION. 6-Des-943720:28 Miscellaneous Lab Procedure 2 Comments: Comments: TRAMADOL URINE [id number] Test(s) Ordered by Physician: URINE TOXICOLOGY [id number] RUN [facility] [address] [place], [address] [facility] Comments: TEST RESULT LIMITSTramadol Positive Cutoff = 200 Tramadol GC/MS COnf 6050 ng/mL Cutoff = 100 LAB (Normal) TESTING PERFORMED AT [facility]. ORIGINAL REPORT ON FILE IN LAB CONTAINS ADDITIONAL TEST SITE INFORMATION. TEST 2 8-Ctu-554432:28 Urine Drug Screen (VISTA) Comments: Comments: TRAMADOL URINE [id number] of Drugs Taken or Suspected? [facility] [address] [place], [address] THC NEGATIVE (Normal) PCP NEGATIVE (Normal) OPIATES [...] MUST BE ORDERED SEPARATELY. USE TESTMNEMONIC: UTCA 72-Kvv-299756:14 CBC-Complete Blood Cnt No Diff Comments: [facility] [address] [place], [phone](777) MPV 9.5 fL (Normal) Range: 6.2-12.0 PLT [...] 4.2-5.4 WBC 9.7 K/mm3 (Normal) Range: 4.4-11.0 23-Eby-220564:14 Magnesium Comments: [facility] [address] [place], [phone](228) MG 1.7 mg/dL (Normal) Range: 1.6-2.6 59-Pmd-481189:14 Microalb:Creat Ratio,Random UR Comments: [facility] [address] [place], [address] MALB:CREAT 5.5 {mg/g_CRE} (Normal) MICROALBUMIN,UR 6.1 mg/L (Normal) UR CREAT 111.00 mg/dL (Normal) 89-Odc-520899:1 PTHIN 25.7 pg/mL (Normal) Comments: [facility] [address] [place], [id number] 4 Range: 18.4-80.1 Comments: Please Note: PTH INTACT METHOD AND REFERENCE RANGE CHANGEEffective 11/18/2017. 80-Aos-289775:14 Renal Profile Comments: [facility] [address] [place], [address] CO2 27.0 [...] A.D.A. criteria.Please note revised GLUCOSE reference range mtivhkjts11/02/2018. 20-Ddt-521230:14 Uric Acid Comments: [facility] [address] [place], [address] URIC 8.4 mg/dL (Abnormal) Range: 2.6-6.0 Comments: The drugs N-Acetylcysteine and Metamizole may falselydepress this assay. 10-Hib-079313:14 Vitamin D,25 Hydroxy Comments: [facility] [address] [place], [place], [address] Vitamin D 25-OH 36.6 ng/mL (Normal) Range: 29.95-100.01 Comments: Vitamin D 25(OH) Status Range Deficiency <20 ng/mL (50nmol/L) Insuffciency 20 - 30 ng/mL (50 - 75 nmol/L) Sufficiency 30 - 100 ng/mL (75 - 250 nmol/L) Toxicity >100 ng/mL (>250 nmol/L) 05-Ani-83554:27 HgA1C , Office (13991) HgA1C , Office 6.7 % (Normal) Range: 4.6 - 7.1 9-Ztp-184573:13 Bedside Glucose Comments: [facility] LaboratoryPoint of [address] [place] [address] BEDSIDE GLU 132 mg/dL (Abnormal) Range: 70-110 Comments: MANAGEMENT OF PATIENT CARE PER NURSING PROTOCOL :00 Culture, Bronch Aveolar Lavage Comments: [facility] [address] [place], [id number] CUBRL See Note (Normal) Comments: List Antibiotics Last 48 Hours? .List Antibiotics to be Started? .Gram StainGram Stain No White Blood Cells No organisms seen Resp. CultureMixed normal respiratory hermelindo. No Haemophilus, Streptoc occus pneumoniae, beta-hemolytic Streptococcus or Staphylococcus aureus isolated. 97-Pvf-557561:06 HgA1C , Office (24627) HgA1C , Office 8.2 % (Abnormal) Range: 4.6 - 7.1 18-Sas-758546:06 Blood Glucose , Office (44559) Blood Glucose , Office 168 (Normal) 78-Mcj-441862:00 Culture, Fungus 8482 Comments: [facility] [address] [place], [id number] CUF See Note Comments: PER ORDER, SPUTUM SMEAR/CULTURE FUNGAS Cu,Zdyxfj5365 TESTING PERFORMED AT [facility]. ORIGINAL REPORT ON FILE IN LAB CONTAINS NEO TIONAL TEST (Normal) SITE INFORMATION. CUF Positive Fungus Culture ORGANISM 1: Yana albicansAmount Growth Growth 98-Tfr-443597:00 Culture, Sputum Comments: [facility] [address] [place], [place], [address] CUSP See Note (Normal) Comments: PER ORDER, SPUTUM SMEAR/CULTURE FUNGAS Gram StainAcceptable Specimen? Yes (<25 Epithelial cells per/lpf) Gram Stain 1+ White Blood Cells 1+ Epithelial cells 1+ Gram positive cocci Resp. CultureMixed normal respiratory hermelindo. No Haemophilus, Streptococcus pneumoniae, beta-hemolytic Streptococcus or Staphylococcus aureus isolated. 72-Rcb-583481:49 BNP,B-Type NATRIURETIC PEPTIDE Comments: [facility] [address] [place], [place], [address] B-TYPE EB PEP 41.7 pg/mL (Normal) Range: 0-100 23-Cxv-804650:30 Rapid Flu (14636 x 2) Influenza A Ag neg (Normal) 7-Gls-526122:14 Bedside Glucose Comments: [facility] [address] [place], [place] [address] BEDSIDE GLU 151 mg/dL (Abnormal) Range: 70-110 Comments: MANAGEMENT OF PATIENT CARE PER NURSING PROTOCOL 07-Dec-20170:00 Culture, Bronch Aveolar Lavage Comments: [facility] [address] [place], [place], [phone] CUBRL See Note (Normal) Comments: List Antibiotics [...] $ <=20 S(NF) indicates non-formulary drug at [facility]. Approval by Infectious Disease Specialist required before non-formulary drugs may be ordered and/or dispensed. 5-Tnw-240749:27 CBC-Complete Blood Cnt No Diff Comments: [facility] [address] [place], [address] MPV 10.0 fL (Normal) Range: 6.2-12.0 PLT [...] 4.2-5.4 WBC 14.0 K/mm3 (Abnormal) Range: 4.4-11.0 7-Maz-135479:27 Hemoglobin A1c Comments: [facility] [address] [place], [address] HGB A1C 7.9 % (Abnormal) Range: 4.2-6.3 9-Pxc-259525:27 Magnesium Comments: [facility] [address] [place], [address] MG 1.9 mg/dL (Normal) Range: 1.8-2.4 7-Yuu-890144:27 Microalb:Creat Ratio,Random UR Comments: [facility] [address] [place], [address] MALB:CREAT 12.0 {mg/g_CRE} (Normal) MICROALBUMIN,UR 11.1 mg/L (Normal) UR CREAT 92.40 mg/dL (Normal) 7-Fqd-570068:27 PTHIN 83.3 pg/mL (Abnormal) Comments: [facility] [address] [place], [address] Range: 18.4-80.1 Comments: Please Note: PTH INTACT METHOD AND REFERENCE RANGE CHANGEEffective 11/18/2017. 3-Lsa-243942:27 Renal Profile Comments: [facility] [address] [place], [address] CO2 24.0 mmol/L (Normal) Range: 21.0-32.0 CL [...] 200 mg/dLsuggests DIABETES MELLITUS per A.D.A. criteria. 1-Tjg-596571:27 Uric Acid Comments: [facility] [address] [place], [address] URIC 9.0 mg/dL (Abnormal) Range: 2.6-6.0 Comments: The drugs N-Acetylcysteine and Metamizole may falselydepress this assay. 3-Iap-885318:27 Vitamin D,25 Hydroxy Comments: [facility] [address] [place], [address] Vitamin D 25-OH 34.1 ng/mL (Normal) Comments: Vitamin D 25(OH) Status Range Deficiency <20 ng/mL (50nmol/L) Insuffciency 20 - 30 ng/mL (50 - 75 nmol/L) Sufficiency 30 - 100 ng/mL (75 - 250 nmol/L) Toxicity >100 ng/mL (>250 nmol/L) :22 THROAT CULTURE (92275) Comments: PATIENT NOT FASTINGPERFORMED BY: [employer]70 [facility] [id number] Information: SRC: Result 1 RRF (Normal) Comments: Routine respiratory hermelindo Upper Respiratory Culture Final report (Normal) 51-Jyn-354564:09 Rapid Flu (57269 x 2) Comments: Negative Influenza A Ag negative (Normal) 06-Myw-853213:09 Rapid Strep Test, Office (12734) Comments: Negative Rapid Strep Test, Office Negative (Normal) 11-Tis-982298:52 Microscopic Examination Comments: PATIENT WAS FASTINGPERFORMED BY: [employer]6370 [facility] [id number] Bacteria None seen (Normal) Mucus Threads Present (Normal) Epithelial Cells (non renal) 0-10 {/hpf} (Normal) Range: 0 - 10 RBC 0-2 {/hpf} (Normal) Range: 0 - 2 WBC 0-5 {/hpf} (Normal) Range: 0 - 5 80-Hct-421123:08 Magnesium Comments: [facility] [address] [place], [place], [address] MG 1.9 mg/dL (Normal) Range: 1.8-2.4 22-Xfq-302473:08 Microalb:Creat Ratio,Random UR Comments: [facility] [address] [place], [place], [address] MALB:CREAT 8.5 {mg/g_CRE} (Normal) MICROALBUMIN,UR 5.2 mg/L (Normal) UR CREAT 61.10 mg/dL (Normal) 95-Pas-447365:08 PTH,INTACT Comments: [facility] [address] [place], [place], [address] PTH,Intact 40 pg/mL (Normal) Range: 14-72 :08 Renal Profile Comments: [facility] [address] [place], [address] CO2 23.0 mmol/L (Normal) Range: 21.0-32.0 CL [...] per A.D.A. criteria. :08 Uric Acid Comments: [facility] [address] [place], [address] URIC 8.0 mg/dL (Abnormal) Range: 2.6-6.0 Comments: The drugs N-Acetylcysteine and Metamizole may falselydepress this assay. 77-Pjl-471871:08 Vitamin D,25 Hydroxy Comments: [facility] [address] [place], [address] Vitamin D 25-OH 27.6 ng/mL (Normal) Comments: Vitamin D 25(OH) Status Range Deficiency <20 ng/mL (50nmol/L) Insuffciency 20 - 30 ng/mL (50 - 75 nmol/L) Sufficiency 30 - 100 ng/mL (75 - 250 nmol/L) Toxicity >100 ng/mL (>250 nmol/L) 43-Cup-427403:52 URINALYSIS, W/ MICRO (01919) Comments: PATIENT WAS FASTINGPERFORMED BY: Retail ConvergenceBayshore Community HospitalPacruv1271 [facility] [id number] Microscopic Examination See below: (Normal) Comments: Microscopic was indicated and was performed. Nitrite, Urine Negative (Normal) Urobilinogen,Semi-Qn 0.2 mg/dL (Normal) Range: 0.2-1.0 Bilirubin Negative (Normal) Occult Blood Negative (Normal) Ketones Negative (Normal) Glucose 1+ (Abnormal) Protein Negative (Normal) WBC Esterase 1+ (Abnormal) Appearance Clear (Normal) Urine-Color Yellow (Normal) pH 6.5 (Normal) Range: 5.0-7.5 Specific Cisco 1.023 (Normal) Range: 1.005-1.030 85-Uix-111795:52 MICROALBUMIN: CREATININE RATIO Comments: PATIENT WAS FASTINGPERFORMED BY: Retail ConvergenceBayshore Community HospitalFujjah2249 [facility] [id number] (36295) AND (46343) Microalb/Creat Ratio 7.6 {mg/g_creat} (Normal) Range: 0.0-30.0 Microalbumin, Urine 6.8 ug/mL (Normal) Creatinine, Urine 89.4 mg/dL (Normal) 15-Uhl-728873:52 METABOLIC PANEL, COMPREHENSIVE Comments: PATIENT WAS FASTINGPERFORMED BY: [employer]vergence Vionic [facility] [id number] (69941) ALT (SGPT) 22 [iU]/L (Normal) Range: 0-32 [...] Glucose, Serum 99 mg/dL (Normal) Range: 65-99 72-Fzp-669371:52 CBC W/AUTO DIFF WBC (50195) Comments: PATIENT WAS FASTINGPERFORMED BY: [facility] Galpfd2551 [facility] [id number] Immature Grans (Abs) 0.0 {x10E3/uL} (Normal) Range: [...] 3.77-5.28 WBC 13.0 {x10E3/uL} (Abnormal) Range: 3.4-10.8 47-Jhz-136875:52 LIPID PANEL (58100) Comments: PATIENT WAS FASTINGPERFORMED BY: [facility] [id number] LDL/HDL Ratio 1.8 {ratio_units} (Normal) Range: 0.0-3.2 Comments: LDL/HDL Ratio Men Women 1/2 Avg.Risk 1.0 1.5 Av g.Risk 3.6 3.2 2X Avg.Risk 6.2 5.0 3X Avg.Risk 8.0 6.1 LDL Cholesterol Calc 75 mg/dL (Normal) Range: 0-99 VLDL Cholesterol Yamilka 42 mg/dL (Abnormal) Range: 5-40 HDL Cholesterol 41 mg/dL (Normal) Triglycerides 211 mg/dL (Abnormal) Range: 0-149 Cholesterol, Total 158 mg/dL (Normal) Range: 100-199 97-Mgi-335258:52 TSH (21658) Comments: PATIENT WAS FASTINGPERFORMED BY: [employer] [facility] [id number] TSH 1.390 {uIU/mL} (Normal) Range: 0.450-4.500 02-Hhz-034485:52 CALCIFEDIOL (80614) Comments: PATIENT WAS FASTINGPERFORMED BY: [employer] [facility] [id number] Vitamin D, 25-Hydroxy 38.5 ng/mL (Normal) Range: 30.0-100.0 Comments: Vitamin D deficiency has been defined by the [place] ofMedicine and an Endocrine Society practice guideline as alevel of serum 25-OH vitamin D less than 20 ng/mL (1,2).The Endocrine Society went on to further define vitamin Dinsufficiency as a level between 21 and 29 ng/mL (2).1. IOM ([place] of Medicine). 2010. Dietary reference intakes for calcium and D. [place]: The National Academies Press.2. Stephon MF, Ana ROY, Alka ROMERO, et al. Evaluation, treatment, and prevention of vitamin D deficiency: an Endocrine Society clinical practice guideline. JCEM. 2010; 96(7):1911-30. :32 HgA1C , Office (57727) HgA1C , Office 8.1 % (Abnormal) Range: 4.6 - 7.1 :32 Blood Glucose , Office (51073) Blood Glucose , Office 122 (Normal) :37 Immature Cells Comments: PATIENT WAS FASTINGPERFORMED BY: Summitour6370 ForMunein [place] [id number] Myelocytes 1 % (Abnormal) Range: 0 - 0 Metamyelocytes 3 % (Abnormal) Range: 0 - 0 :16 PHOSPHORUS (39152) Comments: PATIENT WAS FASTINGPERFORMED BY: Summitour6370 [employer]bl[employer] [place] [id number] Phosphorus, Serum 2.8 mg/dL (Normal) Range: 2.5-4.5 :16 MAGNESIUM (04114) Comments: PATIENT WAS FASTINGPERFORMED BY: Summitour6370 Wu [employer] Groupblin [place] [id number] Magnesium, Serum 1.8 mg/dL (Normal) Range: 1.6-2.3 :16 METABOLIC PANEL, COMPREHENSIVE Comments: PATIENT WAS FASTINGPERFORMED BY: [employer]70 ForMunein [place] [id number] (11661) ALT (SGPT) 29 [iU]/L (Normal) Range: 0-32 [...] DIR SMEAR Comments: PATIENT NOT FASTINGPERFORMED BY: INTREorg SYSTEMSNovant Health Medical Park Hospital [id number] (86448) Result 1 NOCP (Normal) Comments: No ova, cysts, or parasites seen. Ova + Parasite Exam Final report (Normal) Comments: These results were obtained using wet preparation(s) and trichromestained smear. This test does not include testing for Cryptosporidiumparvum, Cyclospora, or Microsporidia. :34 OCCULT BLOOD FECES SCREEN Comments: PATIENT NOT FASTINGPERFORMED BY: Ubidyne AmpIdeaNovant Health Medical Park Hospital [id number] (26856) Occult Blood, Fecal, IA Negative (Normal) :34 LEUKOCYTE COUNT, FECAL (46700) Comments: PATIENT NOT FASTINGPERFORMED BY: Ubidyne PeekYouAtrium Health Anson [id number] Result 1 NWBC (Normal) Comments: No white blood cells seen. White Blood Cells (WBC), Final report (Normal) Stool :34 C-DIFFICILE, STOOL (07151) Comments: PATIENT NOT FASTINGPERFORMED BY: Ubidyne Hrnbbi9608 ForMuneNovant Health Medical Park Hospital [id number] C difficile Toxins A+B, EIA Negative (Normal) :34 ALFONZO CULTURE-STOOL (30329) Comments: PATIENT NOT FASTINGPERFORMED BY: Ubidyne Qsfmll9291 Wu Project TravelNovant Health Medical Park Hospital [id number] Information: SRC:ST SRC:ST E coli Shiga Toxin EIA Negative (Normal) Result 1 NCI (Normal) Comments: No Campylobacter species isolated. Campylobacter Culture Final report (Normal) Result 1 NSS (Normal) Comments: No Salmonella or Shigella recovered. Salmonella/Shigella Screen Final report (Normal) :56 Metabolic Panel, Comprehensive Comments: PATIENT NOT FASTINGPERFORMED BY: Ubidyne Amwbrm9418 [facility] [id number] (80937) ALT (SGPT) 26 [iU]/L (Normal) Range: 0-32 [...] Glucose, Serum 147 mg/dL (Abnormal) Range: 65-99 12-Prr-715569:56 CBC, Platelets & Auto Diff Comments: PATIENT NOT FASTINGPERFORMED BY: [facility] Vkpflc1070 [facility] [id number] (06977) Immature Grans (Abs) 0.1 {x10E3/uL} (Normal) Range: [...] (Normal) Range: 3.4-10.8 :37 URIC ACID BLOOD (38447) Comments: PATIENT WAS FASTINGPERFORMED BY: [facility]6370 [facility] [id number] Uric Acid, Serum 9.1 mg/dL (Abnormal) Range: 2.5-7.1 Comments: Therapeutic target for gout patients: <6.0 :10 METABOLIC PANEL, COMPREHENSIVE (89544) :37 CBC W/AUTO DIFF WBC (21758) Comments: PATIENT WAS FASTINGPERFORMED BY: LabCovenant Medical Center6370 [facility] [id number] Hematology Comments: Note: (Normal) Comments: Manual differential [...] {x10E3/uL} (Normal) Range: 3.4-10.8 :58 Magnesium Comments: [facility] [address] [place], [address] MG 2.0 mg/dL (Normal) Range: 1.8-2.4 Comments: Slight Hemolysis, Result may be falsely increased. :58 Renal Profile Comments: [facility] [address] [place], [address] CO2 27.0 mmol/L (Normal) Range: 21.0-32.0 CL [...] per A.D.A. criteria. :45 URIC ACID BLOOD (68519) Comments: PATIENT NOT FASTINGPERFORMED BY: [facility] Wzannx8368 [facility] [id number] Uric Acid, Serum 9.6 mg/dL (Abnormal) Range: 2.5-7.1 Comments: Therapeutic target for gout patients: <6.0 :45 RENAL FUNCTION PANEL (53030) Comments: PATIENT NOT FASTINGPERFORMED BY: LabCoBayshore Community HospitalYxfvdu9716 [facility] [id number] Albumin, Serum 4.5 g/dL (Normal) Range: 3.6-4.8 [...] 214 mg/dL (Abnormal) Range: 65-99 :24 CALCIFIDIOL (65532) VIT D 25 Comments: PATIENT WAS FASTINGPERFORMED BY: LabCoBayshore Community HospitalRsyxjc3278 [facility] [id number] Vitamin D, 25-Hydroxy 44.9 ng/mL (Normal) Range: 30.0-100.0 Comments: Vitamin D deficiency has been defined by the [place] ofMedicine and an Endocrine Society practice guideline as alevel of serum 25-OH vitamin D less than 20 ng/mL (1,2).The Endocrine Society went on to further define vitamin Dinsufficiency as a level between 21 and 29 ng/mL (2).1. IOM ([place] of Medicine). 2010. Dietary reference intakes for calcium and D. [place]: The National Academies Press.2. Stephon MF, Ana ROY, Alka ROMERO, et al. Evaluation, treatment, and prevention of vitamin D deficiency: an Endocrine Society clinical practice guideline. JCEM. 2010; 96(7):1911-30. :39 HgA1C , Office (50795) HgA1C , Office 7.6 % (Abnormal) Range: 4.6 - 7.1 :39 Blood Glucose , Office (25329) Blood Glucose , Office 174 (Normal) :56 TSH (63812) Comments: PATIENT WAS FASTINGPERFORMED BY: LabCoBayshore Community HospitalQidqtv0961 [facility] [id number] TSH 2.180 {uIU/mL} (Normal) Range: 0.450-4.500 :56 LIPID PANEL (96522) Comments: PATIENT WAS FASTINGPERFORMED BY: LabCoBayshore Community HospitalSulgwb8417 [facility] [id number] LDL/HDL Ratio 1.8 {ratio_units} (Normal) Range: 0.0-3.2 [...] Range: 100-199 :36 CBC W/Diff, Automated Comments: [facility] [address] [place], [place], [address] Absolute Lymph 1.31 {X10_3/ul} (Normal) Range: 0.83-4.51 [...] 4.2-5.4 WBC 10.5 K/mm3 (Normal) Range: 4.4-11.0 7-Qpk-192728:36 Magnesium Comments: [address] [place], [phone] MG 1.9 mg/dL (Normal) Range: 1.8-2.4 6-Yxd-733628:36 Protein+Creatinine Ratio,Urine Comments: [address] [place], [phone] PROT:CRE RATIO 120 {mg/g_CRE} (Normal) Range: 0-200 PROTEIN,UR.RAN. 13.6 mg/dL (Abnormal) UR CREAT 113.00 mg/dL (Normal) 7-Iew-640816:36 PTH,INTACT Comments: [facility] [address] [place], [address](117) PTH,Intact 27 pg/mL (Normal) Range: 14-72 1-Rvf-249670:36 Renal Profile Comments: [address] [place], [address](167) CO2 27.0 mmol/L (Normal) Range: 21.0-32.0 CL [...] 126 mg/dLsuggests DIABETES MELLITUS per A.D.A. criteria. 2-Qvf-068216:36 Uric Acid Comments: [facility] [address] [place], [address] URIC 7.5 mg/dL (Abnormal) Range: 2.6-6.0 Comments: The drugs N-Acetylcysteine and Metamizole may falsely deressthis assay. :36 Vitamin D,25 Hydroxy Comments: [facility] [address] [place], [address] Vitamin D 25-OH 33.9 ng/mL (Normal) Comments: Vitamin D 25(OH) Status Range Deficiency <20 ng/mL (50nmol/L) Insuffciency 20 - 30 ng/mL (50 - 75 nmol/L) Sufficiency 30 - 100 ng/mL (75 - 250 nmol/L) Toxicity >100 ng/mL (>250 nmol/L) :24 Renal Profile Comments: [facility] [address] [place], [place], [address] CO2 24.0 mmol/L (Normal) Range: 21.0-32.0 CL [...] Immature Cells Comments: PATIENT WAS FASTINGPERFORMED BY: INTREorg SYSTEMSNovant Health Medical Park Hospital [id number] Myelocytes 4 % (Abnormal) Range: 0 - 0 :46 Microscopic Examination Comments: PATIENT WAS FASTINGPERFORMED BY: GearBoxAtrium Health [facility]son [id number] Bacteria Few (Normal) Mucus Threads Present (Normal) Crystal Type Calcium Oxalate (Normal) Crystals Present (Abnormal) Epithelial Cells (non renal) 0-10 {/hpf} (Normal) Range: 0 - 10 RBC 3-10 {/hpf} (Abnormal) Range: 0 - 2 WBC 11-30 {/hpf} (Abnormal) Range: 0 - 5 :47 Sputum Culture (09441) Comments: PATIENT NOT FASTINGPERFORMED BY: GearBoxAtrium Health [facility]son [id number] Information: SRC:SP Result 1 RRF (Normal) Comments: Routine respiratory hermelindo Lower Respiratory Culture Final report (Normal) :46 CALCIFEDIOL (54281) Comments: PATIENT WAS FASTINGPERFORMED BY: AltierreCovenant Medical Center6370 [facility] [id number] Vitamin D, 25-Hydroxy 32.4 ng/mL (Normal) Range: 30.0-100.0 Comments: Vitamin D deficiency has been defined by the [place] ofKettering Health Greene Memorialcine and an Endocrine Society practice guideline as alevel of serum 25-OH vitamin D less than 20 ng/mL (1,2).The Endocrine Society went on to further define vitamin Dinsufficiency as a level between 21 and 29 ng/mL (2).1. IOM ([place] of Medicine). 2010. Dietary reference intakes for calcium and D. [place]: The National Academies Press.2. Stephon MF, Ana ROY, Alka ROMERO, et al. Evaluation, treatment, and prevention of vitamin D deficiency: an Endocrine Society clinical practice guideline. JCEM. 2010; 96(7):1911-30. :46 Metabolic Panel, Comprehensive Comments: PATIENT WAS FASTINGPERFORMED BY: AltierreCovenant Medical Center6370 [facility] [id number] (96425) ALT (SGPT) 19 [iU]/L (Normal) Range: 0-32 [...] Glucose, Serum 126 mg/dL (Abnormal) Range: 65-99 12-Rcm-40157:46 CBC WITH MANUAL DIFF Comments: PATIENT WAS FASTINGPERFORMED BY: LabCovenant Medical Center6370 [facility] [id number] Information: [id number] (54946) Hematology Comments: Note: (Normal) Comments: Manual differential [...] 14.0 {x10E3/uL} (Abnormal) Range: 3.4-10.8 :46 URINALYSIS (24408) Comments: PATIENT WAS FASTINGPERFORMED BY: AltierreCovenant Medical Center6370 [facility] [id number] Microscopic Examination See below: (Normal) Comments: Microscopic was indicated and was performed. Nitrite, Urine Negative (Normal) Urobilinogen,Semi-Qn 0.2 mg/dL (Normal) Range: 0.2-1.0 Bilirubin Negative (Normal) Occult Blood Negative (Normal) Ketones Negative (Normal) Glucose 2+ (Abnormal) Protein Negative (Normal) WBC Esterase 3+ (Abnormal) Appearance Clear (Normal) Urine-Color Yellow (Normal) pH 6.5 (Normal) Range: 5.0-7.5 Specific Cisco 1.022 (Normal) Range: 1.005-1.030 :46 MICROALBUMIN: CREATININE RATIO Comments: PATIENT WAS FASTINGPERFORMED BY: Retail ConvergencePresbyterian Santa Fe Medical CenterSurrew2692 [facility] [id number] (77971) AND (28140) Microalb/Creat Ratio 10.1 {mg/g_creat} (Normal) Range: 0.0-30.0 Microalbumin, Urine 7.3 ug/mL (Normal) Creatinine, Urine 72.6 mg/dL (Normal) :46 TSH (58496) Comments: PATIENT WAS FASTINGPERFORMED BY: Retail ConvergencePresbyterian Santa Fe Medical CenterGonyqr7108 [facility] [id number] TSH 2.600 {uIU/mL} (Normal) Range: 0.450-4.500 :46 Lipid Panel (83127) Comments: PATIENT WAS FASTINGPERFORMED BY: Retail ConvergenceBayshore Community HospitalZquwnx4251 [facility] [id number]; has appt 08/20, will review at that [...] (Normal) Range: 100-199 :49 HgA1C , Office (87653) HgA1C , Office 6.6 % (Normal) Range: 4.6 - 7.1 :49 Blood Glucose , Office (93926) Blood Glucose , Office 113 (Normal) :10 CBC W/Diff, Automated Comments: [facility] [address] [facility] [address] Hospit[facility] [place], [place], [address] Absolute Lymph 1.40 {X10_3/ul} (Normal) Range: 0.83-4.51 [...] 4.4-11.0 :10 Magnesium Comments: Comments: [facility] [address] [place], [phone] MG 1.9 mg/dL (Normal) Range: 1.8-2.4 :10 Protein+Creatinine Ratio,Urine Comments: [facility] [address] [place], [address] PROT:CRE RATIO 112 {mg/g_CRE} (Normal) Range: 0-200 PROTEIN,UR.RAN. 8.1 mg/dL (Normal) UR CREAT 72.10 mg/dL (Normal) :10 PTH,INTACT Comments: [facility] [address] [place], [address] PTH,Intact 29 pg/mL (Normal) Range: 14-72 :10 Renal Profile Comments: Comments: [facility] [address]ntxx[address] [place], [address] CO2 25.0 mmol/L (Normal) Range: 21.0-32.0 CL [...] 126 mg/dLsuggests DIABETES MELLITUS per A.D.A. criteria. 24-Jvt-785816:10 Uric Acid Comments: Comments: [facility] [address] [place], [address] URIC 7.1 mg/dL (Abnormal) Range: 2.6-6.0 Comments: The drugs N-Acetylcysteine and Metamizole may falsely deressthis assay. 86-Szt-359629:10 Vitamin D,25 Hydroxy Comments: [facility] [address] [place], [address] Vitamin D 25-OH 35.5 ng/mL (Normal) Comments: Vitamin D 25(OH) Status Range Deficiency <20 ng/mL (50nmol/L) Insuffciency 20 - 30 ng/mL (50 - 75 nmol/L) Sufficiency 30 - 100 ng/mL (75 - 250 nmol/L) Toxicity >100 ng/mL (>250 nmol/L) 05-Xuh-857004:10 CALCIUM SERUM (19887) Comments: PATIENT NOT FASTINGPERFORMED BY: AltierreCoBayshore Community HospitalYmpuxq2146 [facility] [id number] Information: [id number] Calcium, Serum 10.3 mg/dL (Normal) Range: 8.7-10.3 74-Lhs-954004:10 MAGNESIUM (49385) Comments: PATIENT NOT FASTINGPERFORMED BY: AltierreCoBayshore Community HospitalGptzrp1369 [facility] [id number] Magnesium, Serum 2.1 mg/dL (Normal) Range: 1.6-2.3 1-Fct-520418:14 Bedside Glucose Comments: [facility] LaboratoryPoint of Tozu[address] [place], [place] [phone] BEDSIDE GLU 110 mg/dL (Normal) Range: 70-110 Comments: MANAGEMENT OF PATIENT CARE PER NURSING PROTOCOL :26 Metabolic Panel, Basic Comments: PATIENT NOT FASTINGPERFORMED BY: [facility] Hikstd6[address] [place] [place] [id number] Information: [id number]; will review on 06/04 (87691) Calcium, Serum 10.0 mg/dL (Normal) Range: 8.7-10.3 [...] PTHINDRLUDA ORDERED CBC PTHIN RENAL VITD CRE/PROURIC [facility] [address] [place], [place], [phone] MG 2.0 mg/dL (Normal) Range: 1.8-2.4 :39 Protein+Creatinine Ratio,Urine Comments: [facility] [address] [place], [place], [phone] PROT:CRE RATIO 188 {mg/g_CRE} (Normal) Range: 0-200 PROTEIN,UR.RAN. < 6.0 mg/dL (Normal) UR CREAT 29.80 mg/dL (Normal) :39 PTH,INTACT Comments: [facility] [address] [place], [address] PTH,Intact 53 pg/mL (Normal) Range: 14-72 :39 Renal Profile Comments: ORDERED CA AND PTHINDR.LUZ ORDERED CBC PTHIN RENAL VITD CRE/PROURIC [facility] [address] [place], [place], [phone](032) CO2 22.0 mmol/L (Normal) Range: 21.0-32.0 CL [...] PTHINDR.LUZ ORDERED CBC PTHIN RENAL VITD CRE/PROURIC [facility] [address] [place], [place], [address] URIC 7.3 mg/dL (Abnormal) Range: 2.6-6.0 Comments: The drugs N-Acetylcysteine and Metamizole may falsely deressthis assay. :39 Vitamin D,25 Hydroxy Comments: [facility] [address] [place], [address] Vitamin D 25-OH 52.3 ng/mL (Normal) Comments: Vitamin D 25(OH) Status Range Deficiency <20 ng/mL (50nmol/L) Insuffciency 20 - 30 ng/mL (50 - 75 nmol/L) Sufficiency 30 - 100 ng/mL (75 - 250 nmol/L) Toxicity >100 ng/mL (>250 nmol/L) 6-Arf-507849:09 URINE CALCIUM KAITLIN TIMED Comments: PATIENT NOT FASTINGPERFORMED BY: [facility] Dkvceg1850 [facility] [id number] Information: [id number] START @6AM FINISH 05/05/16@ 6AM (20916) Calcium, Urine 24hr 45.0 {mg/24_hr} (Abnormal) Range: 100.0-300.0 Calcium, Urine 1.8 mg/dL (Normal) 02-May-20169:30 Fecal Occult Blood , Office (62606) Fecal Occult Blood , Office (Inhouse) negative (Normal) 28-Idn-578958:23 Crystals, Body Fluid Comments: [facility] [address] [place], [place], [address] PATH REV Reviewed (Normal) Comments: Negative for malignant cells.Mixture of calcium pyrophosphate (pseudogout) crystals andnondescript crystals are noted.Johnson Castro M.D. 04/29/16 SOURCE/BF SYNOVIAL (Normal) CRYSTALS/BF SEE PATH REV (Normal) 23-Clb-008546:23 Culture, Body Fluid Comments: [facility] [address] [place], [place], [address] CUBF See Note (Normal) Comments: List Antibiotics Last 48 Hours? UNKList Antibiotics to be Started? UNKGram StainCentrifuged Specimen? Culture performed on centrifuged specimen Gram Stain Rare Red Cell Stroma Rare Red Blood Cells No organisms seen Body Fluid CultNO GROWTH IN 14 DAYS Cult, AnaerobicNo growth in 5 days. 62-Wrh-603617:23 GLUCOSE, SYNOVIAL FLUID Comments: ORDERED WRONGSpecimen Source: [...] be integrated into the clinical contextfor interpretation. 42-Tvj-117259:23 Synovial Fluid RBC, WBC AND Comments: [facility] [address] [place], [address] Diff PATH COM/SYFL March (Normal) OTHER CELL [...] VISCOSITY/SYFL Sl. Viscous (Normal) :58 CALCIUM SERUM (64087) Comments: PATIENT NOT FASTINGPERFORMED BY: [employer]70 ForMuneNovant Health Medical Park Hospital [id number] Information: [id number] Calcium, Serum 10.6 mg/dL (Abnormal) Range: 8.7-10.3 :10 Microscopic Examination Comments: PATIENT WAS FASTINGPERFORMED BY: Summitour6370 [facility] HealthcareAt[facility] [id number] Bacteria None seen (Normal) Mucus Threads Present (Normal) Epithelial Cells (non renal) 0-10 {/hpf} (Normal) Range: 0 - 10 RBC None seen {/hpf} (Normal) Range: 0 - 2 WBC 0-5 {/hpf} (Normal) Range: 0 - 5 :10 CALCIFIDIOL (53637) VIT D 25 Comments: PATIENT WAS FASTINGPERFORMED BY: Summitour6370 [facility] [id number] Vitamin D, 25-Hydroxy 63.0 ng/mL (Normal) Range: 30.0-100.0 Comments: Vitamin D deficiency has been defined by the [place] ofMedicine and an Endocrine Society practice guideline as alevel of serum 25-OH vitamin D less than 20 ng/mL (1,2).The Endocrine Society went on to further define vitamin Dinsufficiency as a level between 21 and 29 ng/mL (2).1. IOM ([place] of Medicine). 2010. Dietary reference intakes for calcium and D. [place]: The National Academies Press.2. Stephon MF, Ana [place], Alka ROMERO, et al. Evaluation, treatment, and prevention of vitamin D deficiency: an Endocrine Society clinical practice guideline. JCEM. 2010; 96(7):1911-30. :10 TSH (90131) Comments: PATIENT WAS FASTINGPERFORMED BY: SLIDlin6370 [facility] [id number] TSH 2.680 {uIU/mL} (Normal) Range: 0.450-4.500 :10 URINALYSIS, W/ MICRO (57401) Comments: PATIENT WAS FASTINGPERFORMED BY: [facility]6370 [facility] [id number] Microscopic Examination See below: (Normal) Comments: Microscopic was indicated and was performed. Microscopic Examination MICRON (Normal) Comments: Microscopic follows if indicated. Nitrite, Urine Negative (Normal) Urobilinogen,Semi-Qn 0.2 mg/dL (Normal) Range: 0.2-1.0 Bilirubin Negative (Normal) Occult Blood Negative (Normal) Ketones Negative (Normal) Glucose 3+ (Abnormal) Protein Negative (Normal) WBC Esterase Negative (Normal) Appearance Clear (Normal) Urine-Color Yellow (Normal) pH 6.5 (Normal) Range: 5.0-7.5 Specific Cisco 1.022 (Normal) Range: 1.005-1.030 :10 MICROALBUMIN: CREATININE RATIO Comments: PATIENT WAS FASTINGPERFORMED BY: AltierreCovenant Medical Center6370 [facility] [id number] (06027) AND (47620) Microalb/Creat Ratio 20.5 {mg/g_creat} (Normal) Range: 0.0-30.0 Microalbumin, Urine 20.1 ug/mL (Normal) Comments: Please note reference interval change Creatinine, Urine 97.9 mg/dL (Normal) Comments: Please note reference interval change :10 LIPID PANEL (49505) Comments: PATIENT WAS FASTINGPERFORMED BY: [facility]6370 [facility] [id number] LDL/HDL Ratio 2.0 {ratio_units} (Normal) Range: 0.0-3.2 [...] PANEL, COMPREHENSIVE Comments: PATIENT WAS FASTINGPERFORMED BY: LabCoBayshore Community HospitalBoiddb0569 [facility] [id number]; will review on 04.18 (78487) ALT (SGPT) 18 [iU]/L (Normal) Range: 0-32 [...] Glucose, Serum 143 mg/dL (Abnormal) Range: 65-99 52-Wpg-44656:10 CBC W/AUTO DIFF WBC Comments: PATIENT WAS FASTINGPERFORMED BY: PRATIMA [facility] Wxefyy6513 [facility] [id number] Information: [id number] (63810) Immature Grans (Abs) 0.0 {x10E3/uL} (Normal) Range: [...] 3.77-5.28 WBC 7.8 {x10E3/uL} (Normal) Range: 3.4-10.8 77-Ena-437779:02 HgA1C , Office (60170) HgA1C , Office 6.6 % (Normal) Range: 4.6 - 7.1 17-Zbn-676600:02 Blood Glucose , Office (51482) Blood Glucose , Office 142 (Normal) 90-Wil-648057:20 NuSwab Vaginitis Plus Comments: PATIENT NOT FASTINGPERFORMED BY: [address] [id number] Information: [id number] (STD W/O Herpes) (10225) Neisseria gonorrhoeae, YAIR Negative (Normal) Chlamydia trachomatis, [...] was developed and its performance characteristics determinedby [facility]. It has not been cleared or appro tima by the Food and DrugAdministration. The FDA has determined that such clearance orapproval is not necessary. BVAB 2 Low - 0 {Score} (Normal) Atopobium vaginae Low - 0 {Score} (Normal) 66-Tca-737699:56 Magnesium Comments: Test performed at:[facility] [address] [place] [address] MG 2.2 mg/dL (Normal) Range: 1.8-2.4 79-Oka-158887:56 Protein+Creatinine Ratio,Urine Comments: Test performed at:[facility] [address] [place] [address] PROT:CRE RATIO 440 {mg/g_CRE} (Abnormal) Range: 0-200 PROTEIN,UR.RAN. 8.1 mg/dL (Normal) UR CREAT 18.20 mg/dL (Normal) 51-Rfl-698992:56 Renal Profile Comments: Test performed at:[facility] [address] [place] [address] CO2 28.0 mmol/L (Normal) Range: 21.0-32.0 CL [...] Comments: Please note revised CREATININE reference range hpmvuiinc82/22/2015. BUN 44 mg/dL (Abnormal) Range: 7-18 GLU 186 mg/dL (Abnormal) Range: 70-110 Comments: Fasting Glucose result greater than or equal to 126 mg/dLsuggests DIABETES MELLITUS per A.D.A. criteria. :56 Uric Acid Comments: Test performed at:[facility] [address] [place] [address] URIC 6.5 mg/dL (Abnormal) Range: 2.6-6.0 :56 Vitamin D,25 Hydroxy Comments: Test performed at:[facility] [address] [place] [address] Vitamin D 25-OH 67.0 ng/mL (Normal) Comments: Vitamin D 25(OH) Status Range Deficiency <20 ng/mL (50nmol/L) Insuffciency 20 - 30 ng/mL (50 - 75 nmol/L) Sufficiency 30 - 100 ng/mL (75 - 250 nmol/L) Toxicity >100 ng/mL (>250 nmol/L) 86-Tif-726682:01 Rapid Strep Test, Office (64079) Rapid Strep Test, Office Negative (Normal) :21 HgA1C , Office (14096) HgA1C , Office 6.4 % (Normal) Range: 4.6 - 7.1 :21 Blood Glucose , Office (67207) Blood Glucose , Office 167 (Normal) :01 Microscopic Examination Comments: PATIENT WAS FASTINGPERFORMED BY: [employer] [facility] [id number] Bacteria Few (Normal) Mucus Threads Present (Normal) Epithelial Cells (non renal) 0-10 {/hpf} (Normal) Range: 0 - 10 RBC 0-2 {/hpf} (Normal) Range: 0 - 2 WBC 6-10 {/hpf} (Abnormal) Range: 0 - 5 :50 Antinuclear Antibodies Direct Comments: PATIENT NOT FASTINGPERFORMED BY: [employer] Vionic [facility] [id number] HEIDI Direct Negative (Normal) : C-Reactive Protein, 7.3 mg/L (Abnormal) Comments: PATIENT NOT FASTINGPERFORMED BY: [employer] Okkavm5913 [facility] [id number] 50 Quant Range: 0.0-4.9 :50 CBC, Platelet, No Differential Comments: PATIENT NOT FASTINGPERFORMED BY: [employer] [facility]CoreE[facility] [id number] Platelets 253 {x10E3/uL} (Normal) Range: 150-379 RDW [...] Panel (14) Comments: PATIENT NOT FASTINGPERFORMED BY: [facility] Oeovcc8099 [facility] [id number] Information: [id number] ALT (SGPT) 17 [iU]/L (Normal) Range: 0-32 [...] ng/mL (Normal) Comments: PATIENT NOT FASTINGPERFORMED BY: [facility] Dqfegz5704 [facility] [id number] 50 Serum Comments: A serum folate concentration of less than 3.1 ng/mL isconsidered to represent clinical deficiency. :50 Rheumatoid Arthritis Factor Comments: PATIENT NOT FASTINGPERFORMED BY: [facility] Denckf4178 Wu Project TravelNovant Health Medical Park Hospital [id number] RA Latex Turbid. 10.5 {IU/mL} Range: 0.0-13.9 (Normal) Sedimentation 7 mm/h (Normal) Comments: PATIENT NOT FASTINGPERFORMED BY: CB [facility] Cpryfa4704 Wu RoadDublin [place] [id number] :50 Rate-Westergren Range: 0-40 TSH 2.450 {uIU/mL} Comments: PATIENT NOT FASTINGPERFORMED BY: CB [facility] Ivfgfw2044 Wu RoadDublin [place] [id number] :50 (Normal) Range: 0.450-4.500 Vitamin B12 1684 pg/mL Comments: PATIENT NOT FASTINGPERFORMED BY: CB [facility] Teqfzx1719 Wu RoadDublin [place] [id number] :50 (Abnormal) Range: 211-946 Vitamin D, 25-Hydroxy 75.1 ng/mL Comments: PATIENT NOT FASTINGPERFORMED BY: CB [facility] Pvibob1205 Wu RoadDublin [place] [id number] :50 (Normal) Range: 30.0-100.0 Comments: Vitamin D deficiency has been defined by the [place] ofMedicine and an Endocrine Society practice guideline as alevel of serum 25-OH vitamin D less than 20 ng/mL (1,2).The Endocrine Society went on to further define vitamin Dinsufficiency as a level between 21 and 29 ng/mL (2).1. IOM ([place] of Medicine). 2010. Dietary reference intakes for calcium and D. [place]: The National Academies Press.2. Stephon MF, Ana ROY, Alka ROMERO, et al. Evaluation, treatment, and prevention of vitamin D deficiency: an Endocrine Society clinical practice guideline. JCEM. 2010; 96(7):1911-30. :57 Lower Respiratory Culture Comments: PATIENT NOT FASTINGPERFORMED BY: CB [facility] Hjkfkg8707 [address] [facility] [place] [id number] Information: SRC:[facility] [id number] Result 1 RRF (Normal) Comments: Routine respiratory hermelindo Lower Respiratory Culture Final report (Normal) :01 MICROALBUMIN: CREATININE RATIO Comments: PATIENT WAS FASTINGPERFORMED BY: CB [facility] Dduiig1481 [facility] [id number] (54581) AND (27248) Microalb/Creat Ratio 22.8 {mg/g_creat} (Normal) Range: 0.0-30.0 Microalbumin, Urine 18.8 ug/mL (Abnormal) Range: 0.0-17.0 Creatinine, Urine 82.6 mg/dL (Normal) Range: 15.0-278.0 :01 URINALYSIS (13909) Comments: PATIENT WAS FASTINGPERFORMED BY: [facility]6370 [facility] [id number] Microscopic Examination See below: (Normal) Comments: Microscopic was indicated and was performed. Nitrite, Urine Negative (Normal) Urobilinogen,Semi-Qn 0.2 mg/dL (Normal) Range: 0.0-1.9 Bilirubin Negative (Normal) Occult Blood Negative (Normal) Ketones Negative (Normal) Glucose 2+ (Abnormal) Protein Negative (Normal) WBC Esterase Trace (Abnormal) Appearance Clear (Normal) Urine-Color Yellow (Normal) pH 6.5 (Normal) Range: 5.0-7.5 Specific Cisco 1.020 (Normal) Range: 1.005-1.030 :01 Metabolic Panel, Comments: PATIENT WAS FASTINGPERFORMED BY: [facility]6370 [facility] [id number] Information: [id number] Comprehensive (27634) ALT (SGPT) 17 [iU]/L (Normal) Range: 0-32 [...] 110 mg/dL (Abnormal) Range: 65-99 :01 CALCIFEDIOL (49617) Comments: PATIENT WAS FASTINGPERFORMED BY: [employer]70 [employer] [facility] [id number] Vitamin D, 25-Hydroxy 101.0 ng/mL (Abnormal) Range: 30.0-100.0 Comments: Vitamin D deficiency has been defined by the [place] ofKettering Health Greene Memorialcine and an Endocrine Society practice guideline as alevel of serum 25-OH vitamin D less than 20 ng/mL (1,2).The Endocrine Society went on to further define vitamin Dinsufficiency as a level between 21 and 29 ng/mL (2).1. IOM ([place] of Medicine). 2010. Dietary reference intakes for calcium and D. [place]: The National Academies Press.2. Stephon MF, Ana NC, Alka ROMERO, et al. Evaluation, treatment, and prevention of vitamin D deficiency: an Endocrine Society clinical practice guideline. JCEM. 2010; 96(7):1911-30. :01 Lipid Panel (86993) Comments: PATIENT WAS FASTINGPERFORMED BY: [employer]6370 [facility] [id number] LDL/HDL Ratio 1.4 {ratio_units} (Normal) Range: 0.0-3.2 [...] (Normal) Range: 100-199 :06 HgA1C , Office (47338) HgA1C , Office 6.4 % (Normal) Range: 4.6 - 7.1 :06 Blood Glucose , Office (23810) Blood Glucose , Office 168 (Normal) :43 CBC W/Diff, Automated Comments: Test performed at:[facility] [address] [place], [place] [id number] Absolute Lymph 1.33 {X10_3/ul} (Normal) Range: 0.83-4.51 [...] Range: 4.4-11.0 :43 Magnesium Comments: Test performed at:[facility] [address] [place] [address] MG 1.6 mg/dL (Abnormal) Range: 1.8-2.4 :43 Protein+Creatinine Ratio,Urine Comments: Test performed at:[facility] [address] [place] [address] [id number] PROT:CRE RATIO 143 {mg/g_CRE} (Normal) Range: 0-200 PROTEIN,UR.RAN. 16.0 mg/dL (Abnormal) UR CREAT 111.6 mg/dL (Normal) :43 Renal Profile Comments: Test performed at:[facility] Af[address] [place] [address] CO2 29.0 mmol/L (Normal) Range: 21.0-32.0 CL [...] criteria. :43 Uric Acid Comments: Test performed at:[facility] [address] [place] [address] URIC 7.5 mg/dL (Abnormal) Range: 2.6-6.0 :43 Vitamin D,25 Hydroxy Comments: Test performed at:[facility] [address] [place] [address] Vitamin D 25-OH 48.0 ng/mL (Normal) Comments: Vitamin D 25(OH) Status Range Deficiency <20 ng/mL (50nmol/L) Insuffciency 20 - 30 ng/mL (50 - 75 nmol/L) Sufficiency 30 - 100 ng/mL (75 - 250 nmol/L) Toxicity >100 ng/mL (>250 nmol/L) :16 HgA1C , Office (57895) HgA1C , Office 5.6 % (Normal) Range: 4.6 - 7.1 :16 Blood Glucose , Office (97793) Blood Glucose , Office 113 (Normal) :35 CALCIUM SERUM (21683) Comments: PATIENT NOT FASTINGPERFORMED BY: LabCo[address] [id number] Information: [id number] Calcium, Serum 10.0 mg/dL (Normal) Range: 8.6-10.2 :55 HEIDI Negative (Normal) Comments: Performed at: - [facility] [id number] Director: Taurus Morrissey MD, Phone: [phone] :[phone] CBCD ALC 1.15 {X10_3/ul} (Normal) Range: [...] HEBSAG ttHEBSAG Negative (Normal) Comments: Performed at: [address] [id number] Director: Taurus Morrissey MD, Phone: [phone] at: [address] [id number] 1Lab Director: Juan Carlos Mathew MD, Phone: [phone] :[phone] HECAB tHECAB 0.1 {s/co_ratio} (Normal) Range: 0.0-0.9 Comments: Negative: < 0.8Indeterminate 0.8 - 0.9Positive: > 0.9In order to reduce the incidence of a false positiveresult, the CDC recommends that all s/co ratiosbetween 1.0 and 10.9 be confirmed by a more specificsupplemental or PCR testing. [facility] offers HCV Abw/Reflex to Verification test #[id number]. :55 RF < 10.0 {IU/mL} (Normal) :55 SED tSEDRATE 7 mm/h (Normal) Range: 0-30 :55 VITD 45.5 mg/mL (Normal) Comments: Vitamin D 25(OH) Status RangeDeficiency <20 ng/mL (50nmol/L)Insuffciency 20 - 30 ng/mL (50 - 75 nmol/L)Sufficiency 30 - 100 ng/mL (75 - 250 nmol/L)Toxicity >100 ng/mL (>250 nmol/L) :05 CALCIFEDIOL (08977) Comments: PATIENT NOT FASTINGPERFORMED BY: [facility] Fudcgw4869 [facility] [id number] Information: [id number] Vitamin D, 25-Hydroxy 34.1 ng/mL (Normal) Range: 30.0-100.0 Comments: Vitamin D deficiency has been defined by the [place] ofMedicine and an Endocrine Society practice guideline as alevel of serum 25-OH vitamin D less than 20 ng/mL (1,2).The Endocrine Society went on to further define vitamin Dinsufficiency as a level between 21 and 29 ng/mL (2).1. IOM ([place] of Medicine). 2010. Dietary reference intakes for calcium and D. [place]: The National Academies Press.2. Stephon MF, Ana NC, Alka ROMERO, et al. Evaluation, treatment, and prevention of vitamin D deficiency: an Endocrine Society clinical practice guideline. JCEM. 2010; 96(7):1911-30. :05 CALCIUM SERUM (35244) Comments: PATIENT NOT FASTINGPERFORMED BY: [facility] Mlpbgn8370 [facility] [id number] Calcium, Serum 10.3 mg/dL (Abnormal) Range: 8.6-10.2 48-Ilp-157285:43 CALCIFIDIOL (85401) VIT D Comments: PATIENT NOT FASTINGPERFORMED BY: [facility] Ydnarr8082 [facility] [id number] Information: [id number] 25 Vitamin D, 25-Hydroxy 44.7 ng/mL (Normal) Range: 30.0-100.0 Comments: Vitamin D deficiency has been defined by the [place] ofMedicine and an Endocrine Society practice guideline as alevel of serum 25-OH vitamin D less than 20 ng/mL (1,2).The Endocrine Society went on to further define vitamin Dinsufficiency as a level between 21 and 29 ng/mL (2).1. IOM ([place] of Medicine). 2010. Dietary reference intakes for calcium and D. [place]: The National AcademMinor Studios Press.2. Stephon MF, Ana ROY, Alka ROMERO, et al. Evaluation, treatment, and prevention of vitamin D deficiency: an Endocrine Society clinical practice guideline. JCEM. 2010; 96(7):1911-30. 69-Qmw-145442:36 URINE CALCIUM KAITLIN TIMED Comments: PATIENT NOT FASTINGPERFORMED BY: [employer]70 ForMuneNovant Health Medical Park Hospital [id number] Information: [id number] 1950ML START 05/21@630AM FINISH 05/22/14@6 30AM 24 Hour (68253) Calcium, Urine 24hr 93.6 {mg/24_hr} (Abnormal) Range: 100.0-300.0 Calcium, Urine 4.8 mg/dL (Normal) 46-Awj-989683:43 PARATHORMONE (00183) Comments: PATIENT NOT FASTINGPERFORMED BY: [employer] Sasuar2395 ForMuneNovant Health Medical Park Hospital [id number] PTH, Intact 22 pg/mL (Normal) Range: 15-65 81-Vat-70402:56 Metabolic Panel, Basic Comments: drawn next ; PATIENT NOT FASTINGPERFORMED BY: [employer] Bpkmsa7625 ForMuneNovant Health Medical Park Hospital [id number] Information: [id number] (96171) Calcium, Serum 10.5 mg/dL (Abnormal) Range: 8.6-10.2 [...] Glucose, Serum 113 mg/dL (Abnormal) Range: 65-99 3-Qan-945903:50 METABOLIC PANEL, Comments: PATIENT NOT FASTINGPERFORMED BY: LabCoBayshore Community HospitalFliogv6421 [facility] [id number] Information: [id number] COMPREHENSIVE (10675) ALT (SGPT) 22 [iU]/L (Normal) Range: 0-32 [...] (Abnormal) Range: 65-99 :13 HgA1C , Office (31098) HgA1C , Office 6.5 % (Normal) Range: 4.6 - 7.1 :13 Blood Glucose , Office (71165) Blood Glucose , Office 163 (Normal) :41 [...] CREATININE RATIO Comments: PATIENT WAS FASTINGPERFORMED BY: INTREorg SYSTEMSNovant Health Medical Park Hospital [id number] (18493) AND (90702) Microalb/Creat Ratio 6.2 {mg/g_creat} (Normal) Range: 0.0-30.0 Microalbumin, Urine 2.2 ug/mL (Normal) Range: 0.0-17.0 Creatinine, Urine 35.7 mg/dL (Normal) Range: 15.0-278.0 :38 URINALYSIS (22472) Comments: PATIENT WAS FASTINGPERFORMED BY: INTREorg SYSTEMSNovant Health Medical Park Hospital [id number] Microscopic Examination MICRON (Normal) Comments: Microscopic follows if indicated. Nitrite, Urine Negative (Normal) Urobilinogen,Semi-Qn 0.2 mg/dL (Normal) Range: 0.0-1.9 Bilirubin Negative (Normal) Occult Blood Negative (Normal) Ketones Negative (Normal) Glucose Negative (Normal) Protein Negative (Normal) WBC Esterase Negative (Normal) Appearance Clear (Normal) Urine-Color Yellow (Normal) pH 7.5 (Normal) Range: 5.0-7.5 Specific Cisco 1.010 (Normal) Range: 1.005-1.030 :38 CALCIFEDIOL (59373) Comments: PATIENT WAS FASTINGPERFORMED BY: [employer]6370 [address] [facility] [id number] Vitamin D, 25-Hydroxy 44.7 ng/mL (Normal) Range: 30.0-100.0 Comments: Vitamin D deficiency has been defined by the [place] ofMedicine and an Endocrine Society practice guideline as alevel of serum 25-OH vitamin D less than 20 ng/mL (1,2).The Endocrine Society went on to further define vitamin Dinsufficiency as a level between 21 and 29 ng/mL (2).1. IOM ([place] of Medicine). 2010. Dietary reference intakes for calcium and D. [place]: The National Academies Press.2. Stephon MF, Ana NC, Alka ROMERO, et al. Evaluation, treatment, and prevention of vitamin D deficiency: an Endocrine Society clinical practice guideline. JCEM. 2010; 96(7):1911-30. :38 TSH (53971) Comments: PATIENT WAS FASTINGPERFORMED BY: [facility] Hxqujw7203 [address] [facility] [id number] TSH 2.930 {uIU/mL} (Normal) Range: 0.450-4.500 :38 CBC with manual diff Comments: PATIENT WAS FASTINGPERFORMED BY: LabDo[facility] Jhehzo7598 [facility] [id number] Information: [id number] (83279) Immature Grans (Abs) 0.0 {x10E3/uL} (Normal) Range: [...] Panel, Comprehensive Comments: PATIENT WAS FASTINGPERFORMED BY: LabCoBayshore Community HospitalXjqbdq4385 [facility] [id number] (67136) ALT (SGPT) 22 [iU]/L (Normal) Range: 0-32 [...] mg/dL (Normal) Range: 65-99 :38 Lipid Panel (59847) Comments: PATIENT WAS FASTINGPERFORMED BY: LabCoBayshore Community HospitalEtwmnh4207 [facility] [id number] LDL/HDL Ratio 1.2 {ratio_units} (Normal) Range: 0.0-3.2 LDL Cholesterol Calc 53 mg/dL (Normal) Range: 0-99 VLDL Cholesterol Yamilka 27 mg/dL (Normal) Range: 5-40 HDL Cholesterol 45 mg/dL (Normal) Comments: According to ATP-III Guidelines, HDL-C >59 mg/dL is considered anegative risk factor for CHD. Triglycerides 135 mg/dL (Normal) Range: 0-149 Cholesterol, Total 125 mg/dL (Normal) Range: 100-199 :05 LIPID PANEL (77002) Comments: PATIENT WAS FASTINGPERFORMED BY: LabCoBayshore Community HospitalSugbnl2171 [facility] [id number] Information: [id number] LDL/HDL Ratio 1.6 {ratio_units} (Normal) Range: 0.0-3.2 LDL Cholesterol Calc 76 mg/dL (Normal) Range: 0-99 VLDL Cholesterol Yamilka 30 mg/dL (Normal) Range: 5-40 HDL Cholesterol 49 mg/dL (Normal) Comments: According to ATP-III Guidelines, HDL-C >59 mg/dL is considered anegative risk factor for CHD. Triglycerides 148 mg/dL (Normal) Range: 0-149 Cholesterol, Total 155 mg/dL (Normal) Range: 100-199 28-Jof-934409:43 FECAL OCCULT HGB ASSAY- tubes sent home (05480) FECAL OCCULT HGB ASSAY, QUAL, 1-3 SIMULTANEOU negative (Normal) 80-Bsk-519121:40 Nuclear Stress Test Radiology Report See Note [...] The patient was injected with 31.6 mCi nxMr51n Cardiolite and subsequently stress SPECT Cardiolite nuclear [...] Wiliam MASON by Mayur FELIX,Yosi on 07/29/13 3163 Sign by: Yosi Merchant MD 10-Ikq-15466:52 KNEE 1 OR 2 VIEWS Radiology Report [...] Ferguson M.D.July 29, 2013 at 5:00:35 PM [id number] Signed RU/RU If you are the referring phys ician and would like to consult with theradiologist who provided this interpretation, please contact Alejandro Horton at [phone]. If this radiologist is unavailable, youwillbe directed to [facility] radiologist to assist. If you are a patient with a question regarding this report, pleasecontactyour referring physician directly. Professional Interpretation Provided By: trip.me, Phone , These documents contain legally protected [...] 07/29/13 1715 Si gn by: Ag Ferguson 89-Uzo-31292:52 KNEE 1 OR 2 VIEWS Radiology Report [...] Ferguson M.D.July 29, 2013 at 5:02:45 PM [id number] Signed RU/RU If you are the referring physician and would like to consult with therad iologist who provided this interpretation, please contact Alejandro Horton at [phone]. If this radiologist is unavailable, youwillbe directed to another radiologist to assist. If you are a sandra ent with a question regarding this report, pleasecontactyour referring physician directly. Professional Interpretation Provided By: trip.me, Phone , These documents con tain legally [...] Ag Ferguson on 07/29/131716 Sign by: joseAg 55-Lhc-220211:27 CCP ANTIBODY (43812) Comments: PATIENT NOT FASTINGPERFORMED BY: [facility] Ydjqba9933 [facility] [id number] BY: [address] [id number] CCP Antibodies IgG/IgA 5 {units} (Normal) Range: 0-19 Comments: Negative <20 Weak positive 20 - 39 Moderate positive 40 - 59 Strong positive >59 99-Ukt-161225:27 SED RATE ERYTHROCYTE Comments: PATIENT NOT FASTINGPERFORMED BY: [facility] Gsqiow6993 [facility] [id number] BY: [address] [id number] (45582) Sedimentation Rate-Westergren 2 mm/h (Normal) Range: 0-40 43-Ddl-160959:27 C-REACTIVE PROTEIN Comments: PATIENT NOT FASTINGPERFORMED BY: [facility]BoxVenturesrp Ussljl4022 [facility] [id number] BY: [address] [id number] (41722) C-Reactive Protein, Quant 2.1 mg/L (Normal) Range: 0.0-4.9 16-Dwn-525197:27 TSH (21039) Comments: PATIENT NOT FASTINGPERFORMED BY: [facility] Vocnef4526 [facility] [id number] BY: [address] [id number] TSH 1.630 {uIU/mL} (Normal) Range: 0.450-4.500 25-Qmp-407705:27 RHEUMATOID FACTOR-QUANT Comments: PATIENT NOT FASTINGPERFORMED BY: CB [facility] Skjzjf9165 [facility] [id number] BY: [place] 875177 [facility] [id number] (29500) RA Latex Turbid. 9.7 {IU/mL} (Normal) Range: 0.0-13.9 14-Cgi-377487:27 HEIDI (ANTINUCLEAR ANTIBODY) Comments: PATIENT NOT FASTINGPERFORMED BY: LabCoRussell [place] 2407870 [facility] [id number] BY: [address] [id number] (03069) HEIDI Direct Negative (Normal) 69-Nyj-615053:27 CBC WITH MANUAL DIFF Comments: PATIENT NOT FASTINGPERFORMED BY: LabCoRussell [place] 2407870 [facility] [id number] BY: [address] [id number] Inf ormation: [id number] (89934) Immature Grans (Abs) 0.0 {x10E3/uL} (Normal) Range: [...] 3.77-5.28 WBC 8.5 {x10E3/uL} (Normal) Range: 4.0-10.5 46-Gsu-913470:27 METABOLIC PANEL, Comments: PATIENT NOT FASTINGPERFORMED BY: CB [facility] Mscxuj2541 [facility] [id number] BY: BN [facility] Wnuzyyheoq8792 [facility] [id number] COMPREHENSIVE (22590) ALT (SGPT) 24 [iU]/L (Normal) Range: 0-32 [...] (Normal) Range: 65-99 :22 HgA1C , Office (45675) HgA1C , Office 5.9 % (Normal) Range: 4.6 - 7.1 :22 Blood Glucose , Office (19121) Blood Glucose , Office 148 (Normal) Comments: non fasting :44 MAGNESIUM (78918) Comments: copy to dr jose mayes; PATIENT NOT FASTINGPERFORMED BY: [facility] PayrollH[facility] [id number] Magnesium, Serum 2.0 mg/dL (Normal) Range: 1.6-2.6 :44 Metabolic Panel, Basic Comments: copy to dr jose Mayes; PATIENT NOT FASTINGPERFORMED BY: INTREorg SYSTEMSNovant Health Medical Park Hospital [id number] Information: [id number] (55084) Calcium, Serum 10.1 mg/dL (Normal) Range: 8.6-10.2 [...] Glucose, Serum 141 mg/dL (Abnormal) Range: 65-99 54-Zoh-850044:10 PTT (Activated Partial Comments: PATIENT NOT FASTINGPERFORMED BY: INTREorg SYSTEMSNovant Health Medical Park Hospital [id number] Thromboplastin Time) (85295) aPTT 30 {sec} (Normal) Range: 24-33 Comments: This test has not been validated for monitoring unfractionated heparintherapy. aPTT-based therapeutic ranges for unfractionated heparintherapy have not been established. For general guidelines onHeparin monitoring, refer to the [facility] Directory of Services. 21-Pkc-620435:10 PT (Prothrobim Time) Comments: PATIENT NOT FASTINGPERFORMED BY: [place] 5432670 [facility] [id number] Information: [id number] (93354) Prothrombin Time 10.4 {sec} (Normal) Range: 9.1-12.0 INR 1.0 (Normal) Range: 0.8-1.2 Comments: Reference interval is for non-anticoagulated patients. . Suggested INR therapeutic range for Vitamin K anta gonist therapy: Standard Dose (moderate intensity therapeutic range): 2.0 - 3.0 Higher intensity therapeutic range 2.5 - 3.5 10-Abi-615559:10 Potassium Serum (52847) Comments: PATIENT NOT FASTINGPERFORMED BY: [address] [id number] Potassium, Serum 3.9 mmol/L (Normal) Range: 3.5-5.2 29-Xdf-290198:10 Magnesium (07626) Comments: PATIENT NOT FASTINGPERFORMED BY: [address] [id number] Magnesium, Serum 1.9 mg/dL (Normal) Range: 1.6-2.6 :59 HgA1C , Office (07423) HgA1C , Office 5.7 % (Normal) Range: 4.6 - 7.1 :59 Blood Glucose , Office (30882) Blood Glucose , Office 149 (Normal) :08 TSH (20915) Comments: PATIENT WAS FASTINGPERFORMED BY: [place] 5432670 [facility] [id number] TSH 2.390 {uIU/mL} (Normal) Range: 0.450-4.500 :08 URINALYSIS, W/ MICRO (99361) Comments: PATIENT WAS FASTINGPERFORMED BY: UbidyneBayshore Community HospitalMtystz2997 [facility] [id number] Microscopic Examination See below: (Normal) Microscopic Examination MICRON (Normal) Comments: Microscopic follows if indicated. Nitrite, Urine Negative (Normal) Urobilinogen,Semi-Qn 0.2 mg/dL (Normal) Range: 0.0-1.9 Bilirubin Negative (Normal) Occult Blood Negative (Normal) Ketones Negative (Normal) Glucose Negative (Normal) Protein Negative (Normal) Appearance Clear (Normal) WBC Esterase Negative (Normal) pH 7.5 (Normal) Range: 5.0-7.5 Specific Cisco 1.013 (Normal) Range: 1.005-1.030 Urine-Color Yellow (Normal) :08 MICROALBUMIN: CREATININE RATIO Comments: PATIENT WAS FASTINGPERFORMED BY: Ubidyne Dwbzsz5849 [facility] [id number] (12119) AND (31346) Microalb/Creat Ratio 3.8 {mg/g_creat} (Normal) Range: 0.0-30.0 Microalbumin, Urine 2.9 ug/mL (Normal) Range: 0.0-17.0 Creatinine, Urine 77.3 mg/dL (Normal) Range: 15.0-278.0 :08 METABOLIC PANEL, COMPREHENSIVE Comments: PATIENT WAS FASTINGPERFORMED BY: [facility]yneB[facility] HospitalWpznjv9269 [facility] [id number] (67635) ALT (SGPT) 17 [iU]/L (Normal) Range: 0-32 [...] mg/dL (Abnormal) Range: 65-99 :08 LIPID PANEL (39519) Comments: PATIENT WAS FASTINGPERFORMED BY: INTREorg SYSTEMSNov[facility] [id number] LDL/HDL Ratio 2.1 {ratio_units} (Normal) Range: 0.0-3.2 [...] MANUAL DIFF Comments: PATIENT WAS FASTINGPERFORMED BY: Summitour6370 [facility] [id number] Information: ADD [id number] AND DRAW FEE 99 0308 (38834) Immature Grans (Abs) 0.0 {x10E3/uL} (Normal) Range: [...] Examination Comments: PATIENT WAS FASTINGPERFORMED BY: [facility] Byjtux5154 [facility] [id number] Bacteria None seen (Normal) Mucus Threads Present (Normal) Epithelial Cells (non renal) 0-10 {/hpf} (Normal) Range: 0 - 10 RBC 0-3 {/hpf} (Normal) Range: 0 - 3 WBC 0-5 {/hpf} (Normal) Range: 0 - 5 :49 HgA1C , Office (80859) HgA1C , Office 5.8 % (Normal) Range: 4.6 - 7.1 :49 Blood Glucose , Office (77361) Blood Glucose , Office 142 (Normal) :13 ALFONZO CULTURE-OTHER (92001) Comments: PATIENT NOT FASTINGPERFORMED BY: [place] 5432670 [facility] [id number] Information: SRC:THRT [id number] Result 1 RRF (Normal) Comments: Routine respiratory hermelindo Upper Respiratory Culture Final report (Normal) 5-Njv-116751:30 Rapid Strep Test, Office (79458) Rapid Strep Test, Office Negative (Normal) 59-Rvz-372284:36 URIC ACID BLOOD (67206) Comments: PATIENT NOT FASTINGPERFORMED BY: [place] 5432670 [facility] [id number] Information: [id number] Uric Acid, Serum 6.6 mg/dL (Normal) Range: 2.5-7.1 Comments: Therapeutic target for gout patients: <6.0 :29 Blood Glucose , Office (16861) Blood Glucose , Office 128 (Normal) :29 HgA1C , Office (14008) HgA1C , Office 5.5 % (Normal) Range: 4.6 - 7.1 80-Ksa-846269:11 HgA1C , Office (94966) HgA1C , Office 5.5 % (Normal) Range: 4.6 - 7.1 34-Shp-659453:11 Blood Glucose , Office (50886) Blood Glucose , Office 127 (Normal) :35 Microscopic Examination Comments: PATIENT WAS FASTINGPERFORMED BY: [facility]6370 [facility] [id number] Bacteria Few (Normal) Mucus Threads Present (Normal) Cast Type Hyaline casts (Normal) Casts Present {/lpf} (Abnormal) Epithelial Cells (non renal) 0-10 {/hpf} (Normal) Range: 0 - 10 RBC 0-3 {/hpf} (Normal) Range: 0 - 3 WBC 6-10 {/hpf} (Abnormal) Range: 0 - 5 :35 TSH (50631) Comments: PATIENT WAS FASTINGPERFORMED BY: [facility]6370 [facility] [id number] TSH 1.550 {uIU/mL} (Normal) Range: 0.450-4.500 :35 URINALYSIS, W/ MICRO (57344) Comments: PATIENT WAS FASTINGPERFORMED BY: Ubidyne Zmvoos9365 [facility] [id number] Microscopic Examination See below: (Normal) Nitrite, Urine Negative (Normal) Urobilinogen,Semi-Qn 0.2 mg/dL (Normal) Range: 0.0-1.9 Bilirubin Negative (Normal) Occult Blood Negative (Normal) Ketones Negative (Normal) Glucose Negative (Normal) Protein Negative (Normal) WBC Esterase 1+ (Abnormal) Appearance Clear (Normal) Urine-Color Yellow (Normal) pH 6.5 (Normal) Range: 5.0-7.5 Specific Cisco 1.019 (Normal) Range: 1.005-1.030 :35 MICROALBUMIN: CREATININE RATIO Comments: PATIENT WAS FASTINGPERFORMED BY: [employer] Obzuwg4478 [facility] [id number] (14791) AND (60576) Microalb/Creat Ratio 7.8 {mg/g_creat} (Normal) Range: 0.0-30.0 Microalbumin, Urine 17.2 ug/mL (Abnormal) Range: 0.0-17.0 Creatinine, Urine 220.8 mg/dL (Normal) Range: 15.0-278.0 :35 METABOLIC PANEL, COMPREHENSIVE Comments: PATIENT WAS FASTINGPERFORMED BY: Retail ConvergenceBayshore Community HospitalQqnmdi5686 [facility] [id number] (77274) ALT (SGPT) 17 [iU]/L (Normal) Range: 0-40 [...] mg/dL (Normal) Range: 65-99 :35 LIPID PANEL (56888) Comments: PATIENT WAS FASTINGPERFORMED BY: BlockA[facility] [id number] LDL/HDL Ratio 1.0 {ratio_units} (Normal) Range: 0.0-3.2 [...] MANUAL DIFF Comments: PATIENT WAS FASTINGPERFORMED BY: Summit[facility]6370 [facility] [id number] Information: [id number] (48447) Immature Grans (Abs) 0.0 {x10E3/uL} (Normal) Range: [...] (Normal) Range: 4.0-10.5 :33 HgA1C , Office (04188) HgA1C , Office 5.7 % (Normal) Range: 4.6 - 7.1 :33 Blood Glucose , Office (36162) Blood Glucose , Office 115 (Normal) 87-Ddr-234754:50 KIDNEY Radiology Report See Note (Normal) Comments: [...] 07/19/11 0430 Sign by: Marciano Fountain MD 02-Gwq-387141:50 PARATHORMONE (63431) Comments: PATIENT NOT FASTINGPERFORMED BY: [facility] Wksyzc7476 [facility] [id number] PTH, Intact 20 pg/mL (Normal) Range: 15-65 74-Urx-041673:50 Metabolic Panel, Comments: PATIENT NOT FASTINGPERFORMED BY: LabCoBayshore Community HospitalSroalz4146 [facility] [id number] Information: [id number] [facility] (04514) ALT (SGPT) 23 [iU]/L (Normal) Range: 0-40 [...] Glucose, Serum 94 mg/dL (Normal) Range: 65-99 50-Pkg-329209:06 Metabolic Panel, Comments: PATIENT NOT FASTINGPERFORMED BY: LabCoBayshore Community HospitalQpdqbp5475 [facility] [id number] Information: [id number] Comprehensive (50657) ALT (SGPT) 30 [iU]/L (Normal) Range: 0-40 [...] Glucose, Serum 92 mg/dL (Normal) Range: 65-99 36-Hxg-64574:17 METABOLIC PANEL, Comments: PATIENT WAS FASTINGPERFORMED BY: LabCoRussell Ville 2407870 [facility] [id number] Information: [id number] COMPREHENSIVE (87967) ALT (SGPT) 27 [iU]/L (Normal) Range: 0-40 [...] Glucose, Serum 85 mg/dL (Normal) Range: 65-99 66-Drz-30429:17 LIPID PANEL (47204) Comments: PATIENT WAS FASTINGPERFORMED BY: [facility]6370 [facility] [id number] LDL/HDL Ratio 1.1 {ratio_units} (Normal) Range: 0.0-3.2 LDL Cholesterol Calc 46 mg/dL (Normal) Range: 0-99 VLDL Cholesterol Yamilka 28 mg/dL (Normal) Range: 5-40 HDL Cholesterol 41 mg/dL (Normal) Comments: According to ATP-III Guidelines, HDL-C >59 mg/dL is considered anegative risk factor for CHD. Triglycerides 140 mg/dL (Normal) Range: 0-149 Cholesterol, Total 115 mg/dL (Normal) Range: 100-199 :38 Blood Glucose , Office (53923) Blood Glucose , Office 132 (Normal) :38 HgA1C , Office (26698) HgA1C , Office 5.7 % (Normal) Range: 4.6 - 7.1 07-Wrf-286326:01 BILAT SCRN DIGITAL & CAD Radiology Report [...] 1051 S ign by: Anam Larios MD 26-Iob-059427:01 DEXA BONE DENSITY STUDY (HP) Radiology Report [...] 05/22/11 1336 Sign by: Anam Larios MD 74-Hku-28235:53 FECAL OCCULT HGB ASSAY- tubes sent home (60948) FECAL OCCULT HGB ASSAY, QUAL, 1-3 SIMULTANEOU negative (Normal) :32 HgA1C , Office (93187) HgA1C , Office 8.6 % (Abnormal) Range: 4.6 - 7.1 :32 Blood Glucose , Office (27463) Blood Glucose , Office 324 (Normal) :30 [...] {uIU/mL} (Normal) Range: 0.358-3.74 :45 CULTURE, SPUTUM (56190) Comments: PATIENT NOT FASTINGPERFORMED BY: LabCoBayshore Community HospitalEijhdn7977 [facility] [id number] Information: SRC:[facility] [id number] Result 1 RRF (Normal) Comments: Routine respiratory hermelindo Lower Respiratory Culture Final report (Normal) :48 HgA1C , Office (64705) HgA1C , Office 5.8 % (Normal) Range: 4.6 - 7.1 :48 Blood Glucose , Office (47528) Blood Glucose , Office 124 (Normal) :20 CHEST WITH CONTRAST Radiology Report See Note (Normal) Comments: Exam Number: [id number] CLINICAL:Sarcoidosis, shortness of breath, wheezing CT CHEST [...] allunchanged. Previous cholecystectomy? Reported By: PO MANCILLA 70-Rmi-09311:15 SERUM CRE & GFR EST GFR - AA 65 mL/min (Normal) EST GFR 54 mL/min (Abnormal) CREAT,SERUM 1.1 mg/dL (Abnormal) Range: 0.6-1.0 92-Mkv-939023:42 CHEST, PA AND LATERAL (MT) Radiology Report See Note (Normal) Comments: Exam Number: [id number] CHEST X- RAY PA AND LATERAL VIEWS [...] moderate dextroscoliotic curvature. Reported By: Joseph Núñez 37-Vsi-439302:15 MAGNESIUM (09457) Comments: PATIENT NOT FASTINGPERFORMED BY: [employer]70 [facility] [id number] Magnesium, Serum 2.1 mg/dL (Normal) Range: 1.6-2.6 39-Rsl-403904:15 Renal function Panel Comments: PATIENT NOT FASTINGPERFORMED BY: [employer]Corp70 [facility] [id number] Information: [id number] (13980) Albumin, Serum 4.7 g/dL (Normal) Range: 3.5-5.5 [...] (Abnormal) Range: 65-99 :46 HgA1C , Office (41952) HgA1C , Office 6.0 % (Normal) Range: 4.6 - 7.1 :46 Blood Glucose , Office (64717) Blood Glucose , Office 140 (Normal) :27 [...] T PROT 7.8 g/dL (Normal) Range: 6.4-8.2 33-Avg-727807:11 CBC with manual diff Comments: PATIENT NOT FASTINGPERFORMED BY: LabCoBayshore Community HospitalYzmoar8631 [facility] [id number] Information: [id number] (95916) Baso (Absolute) 0.0 {x10E3/uL} (Normal) Range: 0.0-0.2 [...] 3.80-5.10 WBC 9.0 {x10E3/uL} (Normal) Range: 4.0-10.5 74-Jlu-091022:55 Microscopic Examination Comments: PATIENT WAS FASTINGPERFORMED BY: S[address]2500 [facility] [id number] BY: Retail ConvergenceBayshore Community HospitalXkkmrh2977 [facility] [id number] Bacteria Few (Normal) Cast Type Hyaline casts (Normal) Mucus Threads Present (Normal) Casts Present {/lpf} (Abnormal) Epithelial Cells (non renal) 0-10 {/hpf} (Normal) Range: 0 - 10 RBC 0-3 {/hpf} (Normal) Range: 0 - 3 WBC 0-5 {/hpf} (Normal) Range: 0 - 5 43-Dpc-280784:34 HgA1C , Office (84621) HgA1C , Office 5.9 % (Normal) Range: 4.6 - 7.1 12-Zlq-090718:34 Blood Glucose , Office (71375) Blood Glucose , Office 140 (Normal) 29-Dpe-329253:55 TSH (46214) Comments: PATIENT WAS FASTINGPERFORMED BY: S7 LipoScimercy[facility] [address] [place] [address] [id number] BY: Retail ConvergenceBayshore Community HospitalUqxvwo9185 [facility] [id number] TSH 0.541 {uIU/mL} (Normal) Range: 0.450-4.500 Comments: Effective December 24, 2009, TSH reference interval for11 - 19 years will be changing to: 0.450 - 4.500 uIU/mLReference interval for all other ages will NOT be affected. 29-Pwt-884889:55 URINALYSIS, W/ MICRO Comments: PATIENT WAS FASTINGPERFORMED BY: [employer] [id number] BY: Retail ConvergencePresbyterian Santa Fe Medical CenterIblrkb4781 [facility] [id number] (25301) Bilirubin Negative (Normal) Microscopic Examination MICRON (Normal) Comments: Microscopic follows if indicated. Microscopic Examination See below: (Normal) Nitrite, Urine Negative (Normal) Occult Blood Negative (Normal) Urobilinogen,Semi-Qn 0.2 mg/dL (Normal) Range: 0.0-1.9 Glucose Negative (Normal) Ketones Negative (Normal) Protein Negative (Normal) WBC Esterase Negative (Normal) Appearance Clear (Normal) pH 6.0 (Normal) Range: 5.0-7.5 Specific Cisco 1.020 (Normal) Range: 1.005-1.030 Urine-Color Yellow (Normal) :55 MICROALBUMIN: CREATININE Comments: PATIENT WAS FASTINGPERFORMED BY: [employer] [id number] BY: [facility] FoundationBoxVenturesBayshore Community HospitalVefkhj5048 [facility] [id number] RATIO (04824) AND (35719) Microalb/Creat Ratio 7.1 {mg/g_creat} (Normal) Range: 0.0-30.0 Microalbumin, Urine 8.6 ug/mL (Normal) Range: 0.0-17.0 Creatinine, Urine 120.9 mg/dL (Normal) Range: 15.0-278.0 00-Ytu-123543:55 METABOLIC PANEL, Comments: PATIENT WAS FASTINGPERFORMED BY: [facility] County HospitalRocket Internet[address] [id number] BY: [place] 5432670 [facility] [id number] COMPREHENSIVE (27181) ALT (SGPT) 24 [iU]/L (Normal) Range: 0-40 [...] Glucose, Serum 105 mg/dL (Abnormal) Range: 65-99 01-Yzg-253180:55 LIPOPROTEIN, BLD, BY NMR Comments: PATIENT WAS FASTINGPERFORMED BY: Sarah LipRocket Internetence Hpb0149 [facility] [id number] BY: PRATIMA LabCoBayshore Community HospitalZbysel7941 [facility] [id number] Information: [id number] (52162) Large VLDL-P 2.9 nmol/L (Abnormal) Comments: Small [...] 1599High 1600 - 2000Very high > 2000. 74-Ril-684956:55 CBC WITH MANUAL DIFF Comments: PATIENT WAS FASTINGPERFORMED BY: Sarah LipoScience Xjv1407 [facility] [id number] BY: PRATIMA LabCoBayshore Community HospitalDvqzbq7205 [facility] [id number] (13494) Baso (Absolute) 0.0 {x10E3/uL} (Normal) Range: 0.0-0.2 [...] kidney disease, stage III (moderate) : Reviewed Log Hauler Letter Indication: Chronic kidney disease, stage III (moderate) Chronic kidney disease, stage III (moderate) : Reviewed Lab Indication: Chronic kidney disease, stage III (moderate) Hypercholesteremia : Cholesterol mgmt Indication: Hypercholesteremia Atrial fibrillation : Continue Current Prescription(s) Indication: Atrial fibrillation Atrial fibrillation : Reviewed Log Hauler Letter Indication: Atrial fibrillation Hypertension with renal [...] KIDNEY DISEASE, STAGE IV (SEVERE) : Reviewed Log Hauler Letter Indication: CHRONIC KIDNEY DISEASE, STAGE IV (SEVERE) Diabetic autonomic neuropathy associated with type 2 diabetes mellitus : Follow up in 3 months Indication: Diabetic autonomic neuropathy associated with type 2 diabetes mellitus Chronic kidney disease, stage III (moderate) : Reviewed Log Hauler Letter Indication: Chronic kidney disease, stage III [...] sequela Aspiration of food, sequela : Reviewed Log Hauler Letter- blaise and abril Indication: Aspiration of [...] Diagnostic Tests Indication: Sarcoidosis Sarcoidosis : Reviewed Log Hauler Letter Indication: Sarcoidosis DM (diabetes mellitus), type 1, uncontrolled, with renal complications : Follow up in 3 months Indication: DM (diabetes mellitus), type 1, uncontrolled, with renal complications DM (diabetes mellitus), type 1, uncontrolled, with renal complications : Reviewed Lab Indication: DM (diabetes mellitus), type 1, uncontrolled, with renal complications Asthma : Continue Current Prescription(s) Indication: Asthma Asthma : Reviewed Log Hauler Letter Indication: Asthma CHRONIC KIDNEY DISEASE, STAGE IV (SEVERE) : Reviewed Log Hauler Letter Indication: CHRONIC KIDNEY DISEASE, STAGE IV [...] GERD (gastroesophageal reflux disease) Asthma : Reviewed Log Hauler Letter Indication: Asthma Asthma : Continue Current Prescription(s) Indication: Asthma DM (diabetes mellitus), type 1, uncontrolled, with renal complications : Follow up in 3 months- do ekg Indication: DM (diabetes mellitus), type 1, uncontrolled, with renal complications Chronic kidney disease, stage III (moderate) : Reviewed Log Hauler Letter Indication: Chronic kidney disease, stage III [...] typeII,controlled, renal comp Atrial fibrillation : Reviewed Log Hauler Letter Indication: Atrial fibrillation Hypercholesteremia : Reviewed [...] Indication: Impacted fracture Impacted fracture : Reviewed Log Hauler Letter Indication: Impacted fracture Hypertension with renal [...] kidney disease, stage III (moderate) : Reviewed Log Hauler Letter- Dr Ribeiro Indication: Chronic kidney disease, [...] kidney disease, stage III (moderate) : Reviewed Log Hauler Letter Indication: Chronic kidney disease, stage III [...] kidney disease, stage III (moderate) : Reviewed Log Hauler Letter Indication: Chronic kidney disease, stage III [...] kidney disease, stage III (moderate) : Reviewed Log Hauler Letter Indication: Chronic kidney disease, stage III [...] kidney disease, stage III (moderate) : Reviewed Log Hauler Letter-- dr ribeiro Indication: Chronic kidney disease, [...] kidney disease, stage III (moderate) : Reviewed Log Hauler Letter: Dr ribeiro Indication: Chronic kidney disease, stage III (moderate) Diabetes mellitus type II, controlled : *Diabetes Education Indication: Diabetes mellitus type II, controlled Hypercholesteremia : Cholesterol mgmt Indication: Hypercholesteremia Hypertension with renal disease : Diet, Exercise, and Wt loss Indication: Hypertension with renal disease Hypertension with renal disease : HTN/CAD Red Flags Indication: Hypertension with renal disease Aspiration pneumonia : Reviewed Log Hauler Letter Indication: Aspiration pneumonia Aspiration pneumonia : [...] kidney disease, stage III (moderate) : Reviewed Log Hauler Letter Indication: Chronic kidney disease, stage III [...] kidney disease, stage III (moderate) : Reviewed Log Hauler Letter- w/u in progress Indication: Chronic kidney [...] reflux disease) Planned Observations METABOLIC PANEL, BASIC (48853)Indication: Hypertension with renal disease On: 11-Kyi-071443:30 Request Comments: STAT STAT STAT STAT METABOLIC PANEL, COMPREHENSIVE (70450)Indication: Medication monitoring encounter On: 1-Xup-536616:10 Request Parathyroid Hormone-related Peptide (PTH-rP) (92120)Indication: Hypercalcemia On: :40 Request Comments: send copy dr ribeiro CALCIUM SERUM (30488)Indication: Hypercalcemia On: :40 Request Comments: send copy to dr ribeiro ELECTROLYTES, 24 HOUR URINE (16074)Indication: Hypercalcemia On: 5-Vhj-285369:49 Request POTASSIUM SERUM (69840)Indication: Hypercalcemia On: :48 Request Parathyroid Hormone-related Peptide (PTH-rP) (62342)Indication: Hypercalcemia On: :48 Request CALCIUM SERUM (59661)Indication: Hypercalcemia On: :48 Request CALCIUM URINE 56162 (15355)Indication: Hypercalcemia On: :06 Request Comments: 24 hr urine ELECTROLYTES, 24 HOUR URINE (42773)Indication: Hypercalcemia On: 02-May-20169:06 Request FECAL OCCULT- Tubes sent home (55872)Indication: Encounter for screening for malignant neoplasm of colon (Renamed from Special screening for malignant neoplasms, colon) On: 18-Vqh-692480:47 Request Lipid Panel (72918)Indication: Hypercholesteremia On: 6-Ylv-295328:02 Request CALCIFIDIOL (67496) VIT D 25Indication: FATIGUE On: :38 Request Folate (48671)Indication: FATIGUE On: :38 Request VITAMIN B-12 (CYANOCOBALAMIN) (02943)Indication: FATIGUE On: :38 Request TSH (55646)Indication: FATIGUE On: :38 Request SED RATE ERYTHROCYTE (93461)Indication: FATIGUE On: :38 Request RHEUMATOID FACTOR-QUANT (93768)Indication: FATIGUE On: :38 Request METABOLIC PANEL, COMPREHENSIVE (90451)Indication: FATIGUE On: :38 Request C-REACTIVE PROTEIN (52028)Indication: FATIGUE On: :38 Request CBC (AUTO) (91411)Indication: FATIGUE On: :38 Request HEIDI (ANTINUCLEAR ANTIBODY) (12561)Indication: FATIGUE On: :38 Request CULTURE, SPUTUM (72912)Indication: Cough On: 6-Emx-373298:08 Request Metabolic Panel, Comprehensive (83879)Indication: Diabetes mellitus type 2, uncontrolled, without complications On: 95-Sxw-883019:21 Request FECAL OCCULT HGB ASSAY- tubes sent home (56754)Indication: Encounter for Medicare annual wellness exam On: 38-Qva-73165:58 Request CALCIFIDIOL (87647) VIT D 25Indication: Vitamin D deficiency On: :48 Request MAGNESIUM (54146)Indication: Hypomagnesemia On: 25-Iqb-68259:47 Request URINE ALFONZO CULTURE (KAITLIN COL COUNT) (77156)Indication: Abdominal pain On: 63-Yum-945570:37 Request Urinalysis, Office (79420)Indication: Abdominal pain On: 61-Zdc-315742:37 Request FECAL OCCULT HGB ASSAY- tubes sent home (58303)Indication: Encounter for Medicare annual wellness exam On: 31-Hnt-15543:56 Request Metabolic Panel, Basic (13055)Indication: Chronic kidney disease, stage III (moderate) On: 45-Bsf-997200:11 Request POTASSIUM SERUM (70594)Indication: Hypokalemia On: 11-Pnc-23295:13 Request TSH (01282)Indication: Diabetes mellitus type II, controlled On: : Request URINALYSIS, W/ MICRO (81207)Indication: Diabetes mellitus type II, controlled On: : Request MICROALBUMIN: CREATININE RATIO (82958) AND (89690)Indication: Diabetes mellitus type II, controlled On: : Request METABOLIC PANEL, COMPREHENSIVE (50975)Indication: Diabetes mellitus type II, controlled On: : Request LIPID PANEL (95664)Indication: Diabetes mellitus type II, controlled On: : Request CBC WITH MANUAL DIFF (53088)Indication: Diabetes mellitus type II, controlled On: : Request LIPOPROTEIN, BLD, BY NMR (41624)Indication: Hypercholesteremia On: 18-Vfy-150940: Request LIPID PANEL (46458)Indication: Hypercholesteremia On: 12-Dfz-372747: Request Comments: do in 3 months HEPATIC FUNCTION PANEL (35788)Indication: Hypercholesteremia On: 64-Vnh-668388: Request LIPID PANEL (25636)Indication: Hypertension, benign On: 35-Gks-239368:33 Request Planned Encounters Medical; 3 Month FU - On: 09-Feb-2019 8:15 [facility] Azra JEAN-BAPTISTE, Veronica Jurado DO Planned Procedures Solu -Medrol Injection, 125 mg On: 18-Aug-2018 Intent (J2930)By: Kassandra Fortune CNP Flu Vaccine (Quadrivalent) 09087Rr: On: 09-Aug-2018 Intent Veronica Oquendo DO, DO, Comments: Lot #[id number]-L dltd, IMDose prefilled syringegiven by:ANTOINE Munoz reviewed and ABN signed Veronica ELECTROCARDIOGRAM, COMPLETE (ECG) On: 09-Aug-2018 Intent (66832)By: Veronica Oquendo DO Comments: nsr - RBBB - no t acute Veronica Oquendo DO SZRO-TP-VNOH BEHAVIORAL COUNSELING On: 09-Apr-2018 Intent FOR OBESITY, 15 MINUTES (G0447)By: Veronica Oquendo DO, DO, Kathleen SCREENING DIGITAL TOMOSYNTHESIS OF On: 09-Apr-2018 Intent BREAST (75042)By: Veronica Oquendo DO, DO, Kathleen Solu- Medrol Injection, 125mg On: 01-Jan-2018 Intent (J2930)By: Veronica Oquendo DO Comments: 125mg - 1 [id number]/2020R hipYazmin LPN Veronica Oquendo DO CHEST XRAY, PA & LATERAL (01074)By: On: 23-Dec-2017 Intent Veronica Oquendo DO, DO, Veronica CHEST XRAY, PA & LATERAL (10079)By: On: 22-Dec-2017 Intent Kelsea Lund Aerosol Treatment (74690)By: On: 22-Dec-2017 Intent Kelsea Lund Comments: Still has wheezing in right lobe after aerosol treatment. Aerosol Treatment (72295)By: Azra On: 25-Nov-2017 Veronica Pabon DO, DO, Kathleen Comments: more a/e less reactivity 0-no wheeze but still that Rub in RLL area Solu- Medrol Injection, 125mg On: 25-Nov-2017 Intent (J2930)By: Veronica Oquendo DO Comments: [id number], 1vialMLONG RADIUS GRINDER Veronica Oquendo DO Solu- Medrol Injection, 125mg On: 27-Oct-2017 Intent (J2930)By: Kelsea Lund Comments: solumedrol 125mg injectionlot: [id number]: 10/2019L GMpt tolerated wellAD RADIUS GRINDER Aerosol Treatment (21904)By: On: 27-Oct-2017 Intent Kelsea Lund Comments: expiratory wheeze after albuterol aerosol treatment. EKG (64695)By: Veronica Oquendo DO On: 14-Oct-2017 Intent Veronica Oquendo DO Comments: nsr no acute chg- RBBB Aerosol Treatment (76170)By: Azra On: 14-Aug-2017 Intent Veronica JEAN-BAPTISTE DO, Kathleen Comments: no noise and more a/e Solu- Medrol Injection, 125mg On: 14-Aug-2017 Intent (J2930)By: Veronica Oquendo DO Comments: lot [id number] mgright gmIMas, [employer] Veronica Oquendo DO Solu- Medrol Injection, 125mg On: 05-Aug-2017 Intent ([id number])By: Veronica Oquendo DO Comments: Lot:[id number]:11/17Dose:125mgRoute:imSite:r hipGiven By:MICHAEL signed eVronica Oquendo DO Flu Vaccine (Quadrivalent) [id number]: On: 28-Jul-2017 Intent Veronica Oquendo DO, DO, Kathleen ELECTROCARDIOGRAM, COMPLETE (ECG) On: 28-Jul-2017 Intent ([id number])By: Veronica Oquendo DO, DO, Kathleen IV Needle placement (34033)By: On: 14-Jul-2017 Intent Kassandra Fortune CNP ORTHOSTATIC BLOOD PRESSURE On: 14-Jul-2017 Intent ASSESSMENT ([id number])By: Kassandra Fortune CNP INFUSION, NORMAL SALINE SOLUTION , On: 14-Jul-2017 Intent 1000 CC (Special Coverage Instructions Apply. See MCM: 2049) ([id number])By: Kassandra Fortune CNP Solu -Medrol Injection, 125 mg On: 22-Jun-2017 Intent ([id number])By: Kelsea Lund Solu- Medrol Injection, 125mg On: 17-Apr-2017 Intent ([id number])By: Veronica Oquendo DO Comments: Lot:[id number]:04/2019Dose:125mgRoute:imSite:l armGiven By:NOE signed Veronica Oquendo DO DEXA SCAN AXIAL SKELETON (92306)By: On: 06-Apr-2017 Intent Veronica Oquendo DO, DO, Kathleen SCREENING DIGITAL TOMOSYNTHESIS OF On: 06-Apr-2017 Intent BREAST ([id number])By: Veronica Oquendo DO, DO, Kathleen Flu Vaccine (Quadrivalent) 06287Yo: On: 20-Aug-2016 Intent Veronica Oquendo DO, DO, Comments: FLUlot: [id number]:05/29/17site:Lt deltoidroute:IMdose:.5mlDEVALENTINA CHOWDARY Veronica Solu- Medrol Injection, 125mg On: 20-Aug-2016 Intent ([id number])By: Veronica Oquendo DO Comments: solumedrollot:[id number]:03/18site:lt glutroute:IMdose:125mgDVALENTINA Calderón DO, Kathleen Solu -Medrol Injection, 125 mg On: 13-Aug-2016 Intent ([id number])By: Kassandra Fortune CNP Comments: Lot:[id number]:02/2019Dose:125mgRoute:imSite:l hip Given By:NOE signed Aerosol Treatment ([id number])By: Irma On: 13-Aug-2016 Intent Clarisse SCHWARZ Radiology - Shoulder - LeftBy: Devika On: 04-Jul-2016 Intent Kassandra LUU Radiology - Knee - LeftBy: Devika On: 04-Jul-2016 Intent Kassandra LUU Comments: send result to Dr. Delgadillo Toradol Injection, 30 mg ([id number])By: On: 04-Jul-2016 Intent Kassandra Fortune CNP Aerosol Treatment ([id number])By: Azra On: 12-May-2016 Intent Veronica JEAN-BAPTISTE DO, Kathleen Comments: less cough and more a./e- no wheeze Solu- Medrol Injection, 125mg On: 12-May-2016 Intent ([id number])By: Veronica Oquendo DO Comments: lot: [id number]: 12/18site/route: RGM/IMamt: 2mLVIS signed when applicableSTARR Lui DO, Kathleen CT - Chest (IV Contrast Needed)By: On: 09-May-2016 Intent Veronica Oquendo DO, DO, Kathleen Radiology - Chest- PA and LatBy: On: 08-May-2016 Intent Veronica Oquendo DO, DO, Kathleen PNEUM VAC ADLT/IMUMNOSPR, SBC/INTRM On: 21-Apr-2016 Intent ([id number])By: Veronica Oquendo DO Comments: pneumovaxlot:[id number]:09/06/17site:lt deltroute:IMDVALENTINA Calderón DO, Kathleen [id number]-HS-[id number] BEHAVIORAL COUNSELING On: 21-Apr-2016 Intent FOR OBESITY, 15 MINUTES (G0447)By: Veronica Oquendo DO, DO, Kathleen MAMMOGRAM, SCREENING, BOTH BREAST On: 21-Apr-2016 Intent ([id number])By: Veronica Oquendo DO, DO, Veronica Radiology - Knee - RightBy: Azra On: 14-Apr-2016 Intent Veronica JEAN-BAPTISTE DO, Kathleen Radiology - Knee - LeftBy: Azra On: 14-Apr-2016 Intent Veronica JEAN-BAPTISTE DO, Kathleen ADMINISTRATION OF INFLUENZA VIRUS On: 09-Aug-2015 Intent VACCINE (G0008)By: Veronica Oquendo DO, DO, Kathleen Flu Vaccine (Quadrivalent) 01334Zt: On: 09-Aug-2015 Intent Veronica Oquendo DO, DO, Comments: Lot:[id number]:02/27/16Dose:0.5mLRoute:IMSite:L DltdGiven By:NOE signed Veronica Solu -Medrol Injection, 125 mg On: 03-Aug-2015 Intent (J2930)By: Veronica Oquendo DO Comments: Lot:[id number]:12/2017Dose:125mgRoute:imSite:l armGiven By:NOE signed Veronica Oquendo DO Aerosol Treatment ([id number])By: Azra On: 03-Aug-2015 Veronica Pabon DO, DO, Kathleen Comments: more a/e after aerosol EKG (34703)By: Veronica Oquendo DO On: 19-Jul-2015 Intent Veronica Oquendo DO Comments: ming botello -- no new twave chg when compared to old ones Aerosol Treatment ([id number])By: Azra On: 30-Apr-2015 Veronica Pabon DO, DO, Kathleen Radiology - Chest- PA and LatBy: On: 27-Apr-2015 Intent Veronica Oquendo DO DOVeronica DEXA SCAN AXIAL SKELETON ([id number])By: On: 17-Apr-2015 Intent Veronica Oquendo DO, DO, Kathleen INTENSIVE BEHAVIORAL THERAPY TO On: 17-Apr-2015 Intent REDUCE CARDIOVASCULAR DISEASE RISK, INDIVIDUAL, [id number], ANNUAL, 15 MINUTES (G0446)By: Veronica Oquendo DO Azra DOVeronica [id number]-SM-[id number] BEHAVIORAL COUNSELING On: 17-Apr-2015 Intent FOR OBESITY, 15 MINUTES (G0447)By: Veronica Oquendo DO DOVeronica MAMMOGRAM, SCREENING, BOTH BREAST On: 17-Apr-2015 Intent ([id number])By: Veronica Oquendo DO, DO, Kathleen EKG (34477)By: Veronica Oquendo DO On: 16-Aug-2014 Intent Veronica Oquendo DO Comments: nsr nonspecif st and t wave chg old not new Radiology - Chest- PA and LatBy: On: 15-May-2014 Intent Veronica Oquendo DO, DO, Kathleen Toradol Injection, 30 mg (J1885)By: On: 12-May-2014 Intent Devika LUU Kassandra Vargas Comments: Lot:[id number]:10/30/15Dose:30mgRoute:imSite:sissy hipGiven By:NOE signed Eprescribed prescriptions (G8553)By: On: 01-May-2014 Intent Veronica Oquendo DO DOVeronica MAMMOGRAM, SCREENING, BOTH BREASTS On: 18-Apr-2014 Intent ([id number])By: Veronica Oquendo DO DOVeronica TZOC-MK-[id number] BEHAVIORAL COUNSELING On: 18-Apr-2014 Intent FOR OBESITY, 15 MINUTES (G0447)By: Veronica Oquendo DO DOVeronica Eprescribed prescriptions (G8553)By: On: 11-Apr-2014 Intent Veronica Oquendo DO Azra DO, Veronica Pulse Oximetry ([id number])By: Azra JEAN-BAPTISTE, On: 11-Apr-2014 Intent Veronica Jurado DO Aerosol Treatment ([id number])By: Devika On: 27-Sep-2013 Intent HORTICULTURE SUPERINTENDENTKassandra SVFH-VM-LETV BEHAVIORAL COUNSELING On: 12-Sep-2013 Intent FOR OBESITY, 15 MINUTES (G0447)By: Veronica Oquendo DO, DO, Kathleen MAMMOGRAM, SCREENING, BOTH BREASTS On: 12-Sep-2013 Intent (72158)By: Kelsea Richards LPN DRAIN/INJECT MAJOR JOINT OR BURSA On: 24-Aug-2013 Intent ()By: Kelsea Richards LPN Comments: [id number] exp 08/13 DRAIN/INJECT MAJOR JOINT OR BURSA On: 24-Aug-2013 Intent ()By: Kelsea Richards LPN Comments: lt knee lot [id number] exp 08/13 DRAIN/INJECT MAJOR JOINT OR BURSA On: 18-Aug-2013 Intent ()By: Kelsea Richards LPN Comments: lt knee lot [id number] exp 07/13 DRAIN/INJECT MAJOR JOINT OR BURSA On: 18-Aug-2013 Intent ()By: Kelsea Richards LPN Comments: rt knee lot [id number] exp 07-13 FLU VAC, SPLIT, >3 YEARS, INTRAMUSC On: 10-Aug-2013 Intent ([id number])By: Veronica Oquendo DO Comments: lot [id number] 2014site/route L sabas, IMamt 0.5mlVIS and ABN signed when applicableSTARR Lui DO, Kathleen ADMINISTRATION OF INFLUENZA VIRUS On: 10-Aug-2013 Intent VACCINE (G0008)By: Sania Ritchie DRAIN/INJECT MAJOR JOINT OR BURSA On: 10-Aug-2013 Intent ()By: Kelsea Richards LPN Comments: euflexxa injection lt knee lot [id number] exp 07/13 DRAIN/INJECT MAJOR JOINT OR BURSA On: 10-Aug-2013 Intent ()By: Kelsea Richards LPN Comments: euflexxa injection rt knee lot [id number] exp 07/13 Solu- Medrol Injection, 125mg On: 03-Aug-2013 Intent (J2930)By: Veronica Oquendo DO Comments: injected over Left sciatic area - most tender spot marked - no bleed pt tolerated well -- 08/03/13 lot # Veronica Oquendo DO Eprescribed prescriptions (G8553)By: On: 03-Aug-2013 Intent Sania Ritchie Kenalog Injection, 10 mgm On: 21-Jul-2013 Intent (J3301)By: Veronica Oquendo DO Comments: used 40 mglot: [id number]: 02/11site/route: RGM/IMamt: 40VIS signed when applicableChelsSTARR randolph DO, Kathleen Nuclear Stress Test/Stress On: 21-Jul-2013 Intent SPECT/AdenosineBy: Azra JEAN-BAPTISTE, Comments: needs adenosine - bc 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 Veronica Jurado DO Echo CompleteBy: Veronica Oquendo DO On: 21-Jul-2013 Intent Veronica Oquendo DO Spirometry ([id number])By: Azra JEAN-BAPTISTE, On: 21-Jul-2013 Intent Veronica Jurado DO Comments: mild obstruction EKG (25834)By: Veronica Oquendo DO On: 21-Jul-2013 Intent Veronica Oquendo DO Comments: nsr no acute chg - t wave inversion ant septal leads - st depression in lateral precordial leads [id number]-[id number] BEHAVIORAL COUNSELING On: 21-Jul-2013 Intent FOR OBESITY, [...] Intent (J2930)By: Kassandra Fortune CNP Comments: Lot: [id number]: 12/2015Amt: 125mgRoute: IMSite: RUOQ glutealGiven by: CHONG Canas EKG (26692)By: Veronica Oquendo DO On: 11-Apr-2013 Intent Veronica Oquendo DO Comments: nsr no acute chg the same nonspecific st flattening in v1v2 are presnet on old ekg's Spirometry (85580)By: Azra JEAN-BAPTISTE, On: 11-Apr-2013 Intent Veronica Jurado DO Comments: such poor technique cnt report a FEV Eprescribed prescriptions (G8553)By: On: 16-Sep-2012 Intent Kelsea Richards LPN FLU VAC, SPLIT, >3 YEARS, INTRAMUSC On: 02-Sep-2012 Intent (78323)By: Veronica Oquendo DO Comments: Lot #[id number]-1/30/13Site-left deltoidgiven by: CHONG Patrick DO, Kathleen ADMINISTRATION OF INFLUENZA VIRUS On: 02-Sep-2012 Intent VACCINE (G0008)By: Veronica Oquendo DO, DO, Kathleen NABQ-WA-TMPY BEHAVIORAL COUNSELING On: 02-Sep-2012 Intent FOR OBESITY, 15 MINUTES (G0447)By: Veronica Oquendo DO, DO, Kathleen SPECIMEN HNDLNG/TRNSPRT, OFFC > LAB On: 04-Aug-2012 Intent ([id number])By: Suki Gutiérrez LPN MAMMOGRAM, SCREENING, BOTH BREASTS On: 28-Jul-2012 Intent ([id number])By: Veronica Oquendo DO, DO, Kathleen EKG (19060)By: Veronica Oquendo DO On: 17-Jun-2012 Intent Veronica Oquendo DO Comments: nsr no acute chg Overnight Pulse Ox(80207)By: Mast On: 11-May-2012 Intent Suzy RUIZ Spirometry (53363)By: Azra JEAN-BAPTISTE, On: 17-Mar-2012 Intent Veronica Jurado DO Comments: poor technique- stable -- FLU VAC, SPLIT, >3 YEARS, INTRAMUSC On: 01-Sep-2011 Intent (68671)By: Kelsea Richards LPN Comments: given at health clinic not here Eprescribed prescriptions (G8553)By: On: 29-Jul-2011 Intent Kelsea Richards LPN Ultrasound - RenalBy: Devika LUU, On: 15-Jul-2011 Intent Dasia PNEUM VAC ADLT/IMUMNOSPR, SBC/INTRM On: 09-May-2011 Intent (90407)By: Veronica Oquendo DO, DO, Kathleen IMMUNIZ ADMNIN, 1 VAC, SNGL/COMBO On: 09-May-2011 Intent (99324)By: Veronica Oquendo DO, DO, Kathleen DXA, BONE DENSITY, AXIAL SKELETON On: 09-May-2011 Intent (48721)By: Kelsea Richards LPN MAMMOGRAM, SCREENING, BOTH BREASTS On: 09-May-2011 Intent (01818)By: Kelsea Richards LPN Clinical Breast Examination On: 09-May-2011 Intent (G0101)By: Kelsea Richards LPN TDAP VACCINE >7 IM (55063)By: Azra On: 16-Apr-2011 Intent Veronica JEAN-BAPTISTE DO, Kathleen Comments: Lot #[id number]-0/24/13Site-right deltoidgiven by: Alisa Vee LPN PULMONARY STRESS TEST/SIMPLE On: 04-Mar-2011 Intent (87012)By: Veronica Oquendo DO Comments: pt unable to complete fulol test due to shortess of breath. Pt completed 3 minutes of assessment. Veronica Oquendo DO EKG (51264)By: Veronica Oquendo DO On: 03-Mar-2011 Intent Veronica Oquendo DO Comments: nsr no acute changes Pulse Oximetry ([id number])By: Devika LUU, On: 29-Jan-2011 Intent Dasia Solu- Medrol Injection, 125mg On: 29-Jan-2011 Intent (J2930)By: Kassandra Fortune CNP Pulse Oximetry (31432)By: Bernardo RN, On: 29-Jan-2011 Intent Suzy IMMUNIZ ADMNIN, 1 VAC, SNGL/COMBO On: 04-Sep-2010 Intent (80615)By: Lisa Blood FLU VAC, SPLIT, >3 YEARS, INTRAMUSC On: 04-Sep-2010 Intent (65960)By: Lisa Blood Comments: Lot:[id number]:02/2011Dose:0.5MLRoute:IMSite:left deltoidGiven by: VALENTINA Saleem CT - Chest (IV Contrast Needed)By: On: 20-Jun-2010 Intent Veronica Oquendo DO, DO, Kathleen Echo CompleteBy: Veronica Oquendo DO On: 20-Jun-2010 Intent Veronica Oquendo DO Radiology - ChestBy: Devika LUU Kassandra On: 27-May-2010 Intent E Aerosol Treatment (52377)By: Devika On: 27-May-2010 Intent BELL Dasia Pulse Oximetry (46017)By: Devika LUU, On: 27-May-2010 Intent Kassandra Vargas Ultrasound - LiverBy: Azra JEAN-BAPTISTE, On: 07-Mar-2010 Intent Veronica Jurado DO Spirometry (23366)By: Azra JEAN-BAPTISTE, On: 07-Mar-2010 Intent Veronica Jurado DO Comments: mild obstrucition EKG (33949)By: Veronica Oquendo DO On: 14-Dec-2009 Intent Veronica Oquendo DO Comments: nsr poor R wave progression-- will request old ekg to compare Spirometry (20665)By: Azra JEAN-BAPTISTE, On: 14-Dec-2009 Intent Veronica Jurado [...] UP TO 125 MG Ordered: 14-Aug-2017 Pending Arza DO, Veronica Azra DO, Veronica INJECTION, METHYLPREDNISOLONE [...] TO 125 MG Ordered: 13-Aug-2016 Pending Ciesa HORTICULTURE SUPERINTENDENT, Dasia INJECTION, METHYLPREDNISOLONE SODIUM SUCCINATE, UP TO 125 MG Ordered: 12-May-2016 Pending Azra DOShanonVeronica Azra DO, Veronica INJECTION, METHYLPREDNISOLONE SODIUM SUCCINATE, UP TO 125 MG Ordered: 03-Aug-2015 Pending Azra DO, Veronica Azra DO, Veronica INJECTION, METHYLPREDNISOLONE SODIUM SUCCINATE, UP TO 125 MG Ordered: 03-Aug-2013 Pending Azra DO, Veronica Azra DO, Veronica INJECTION, METHYLPREDNISOLONE SODIUM SUCCINATE, UP TO 125 MG Ordered: 03-Jun-2013 Pending Chioesa HORTICULTURE SUPERINTENDENT, Dasia INJECTION, METHYLPREDNISOLONE SODIUM SUCCINATE, UP TO 125 MG Ordered: 01-Jan-2018 Pending Azra DOVeronica Azra DO, Veronica INJECTION, METHYLPREDNISOLONE SODIUM SUCCINATE, UP TO 125 MG Ordered: 18-Aug-2018 Pending Ciesa HORTICULTURE SUPERINTENDENT, Dasia INJECTION, TRIAMCINOLONE ACETONIDE, NOT OTHERWISE SPECIFIED, [...] foot : DISCONTINUED - RENAL FUNCTION PANEL (92752) Indication: Gout of right foot Gout of right foot : DISCONTINUED - URIC ACID BLOOD (01330) Indication: Gout of right foot Hypertension with renal disease : DISCONTINUED - MAGNESIUM (82592) Indication: Hypertension with renal disease Hypertension with renal disease : DISCONTINUED - POTASSIUM SERUM (70192) Indication: Hypertension with renal disease Diarrhea : [...] The patient does have durable power of cna hospice and living will. The patient has noticed nothing from the geriatic depression scale. Other providers contributing to the patient's care are commercial floor covering installer, reception agent, hereditary cancer program coordinator and other:.Encounter Diagnosis: BMI 38.0-38.9,adult, Nonsmoker, Annual [...] The patient does have durable power of cna hospice and livin g will. The patient has noticed lack of energy. Other providers contributing to the patient's care are gastrologist, hereditary cancer program coordinator and other: (pain management, podiatry).Encounter Diagnosis: Body [...] patient does not have durable power of cna hospice or living will. The patient has noticed nothing from the [facility]. Other providers contributing to the patient's care are hereditary cancer program coordinator and other:.Encounter Diagnosis: Annual Medicare Phyiscal WITHOUT [...] patient does not have durable power of cna hospice or living will. The patient has noticed [...] care from a hospital (inhaled hamburger and arabic rice and she was in hosp from [...] providers contributing to the patient's care are reception agent (margaret saravia), hereditary cancer program coordinator (dr. hayes) and other: (dr. zincdr. leedr. [...] providers contributing to the patient's care are reception agent (valdez has an appt with Dr Hammer this month at [facility] gastrologist (Michele), hereditary cancer program coordinator (Dr Hayes) and urologist (Dr Mayes).Encounter Diagnosis: [...]
--- OUTSIDE RECORDS SUMMARY | 2018-12-08 05:55 | XMS RPT_ITS ---
:1950 Author Organization OHIP Support Name Relationship Address Phone ANTHONY GIRALDO Unavailable [address] + [place] [address] R Unavailable Unavailable Unavailable SMAIL, CORNELIA Unavailable [address] + [place] [address] ANTHONY GIRALDO Unavailable [address] + [place] [address] R Unavailable Unavailable Unavailable SMAIL, CORNELIA Unavailable [address] + [place] [address] ANTHONY GIRALDO Unavailable [address] + [place] [address] R Unavailable Unavailable Unavailable SMAIL, CORNELIA Unavailable [address] + [place] [address] NOT GIVEN Unavailable Unavailable Unavailable SMAIL, CORNELIA Unavailable [address] + [place], [place] [phone] SMAIL, CORNELIA Unavailable [address] Unavailable [place] [phone] NOT GIVEN Unavailable Unavailable Unavailable SMAIL, CORNELIA Unavailable [address] + [place], [place] [phone] SMAIL, CORNELIA Unavailable [address] Unavailable [place] [phone] NOT GIVEN Unavailable Unavailable Unavailable SMAIL, CORNELIA Unavailable [address] + [place], [place] [phone] SMAIL, CORNELIA Unavailable [address] Unavailable [place] [phone] NOT GIVEN Unavailable Unavailable Unavailable SMAIL, CORNELIA Unavailable [address] + [place], [place] [phone] SMAIL, CORNELIA Unavailable [address] Unavailable [place] [phone] KRISTAL, ANTHONY Unavailable [address] + [place] [address] R Unavailable Unavailable Unavailable SMAIL, CORNELIA Unavailable [address] + [place] [address] KRISTAL ANTHONY Unavailable [address] + [place] [address] R Unavailable Unavailable Unavailable SMAIL, CORNELIA Unavailable [address] + [place] [address] KRISTAL ANTHONY Unavailable [address] + [place] [address] R Unavailable Unavailable Unavailable SMAIL, CORNELIA Unavailable [address] + [place] [address] KRISTAL ANTHONY Unavailable [address] + [place] [address] R Unavailable Unavailable Unavailable SMAIL, CORNELIA Unavailable [address] + [place] [address] NOT GIVEN Unavailable Unavailable Unavailable SMAIL, CORNELIA Unavailable [address] + [place], [place] [phone] SMAIL, CORNELIA Unavailable [address] Unavailable [place] [phone] NOT GIVEN Unavailable Unavailable Unavailable SMAIL, CORNELIA Unavailable [address] + [place], [place] [phone] SMAIL, CORNELIA Unavailable [address] Unavailable [place] [phone] LIDIA GIRALDOEN Unavailable [address] + [place] [address] R Unavailable Unavailable Unavailable SMAIL, CORNELIA Unavailable [address] + [place] [address] LIDIA GIRALDOEN Unavailable [address] + [place] [address] R Unavailable Unavailable Unavailable SMAIL, CORNELIA Unavailable [address] + [place] [address] KRISTAL, ANTHONY Unavailable [address] + [place] [address] R Unavailable Unavailable Unavailable SMAIL, CORNELIA Unavailable [address] + [place] [address] TEJAL SPIVEY Unavailable Unavailable + SMAIL, CORNELIA Unavailable [address] + [place] [address] KRISTAL, ANTHONY Unavailable [address] + [place] [address] R Unavailable Unavailable Unavailable SMAIL, CORNELIA Unavailable [address] + [place] [address] SMAIL, CORNELIA Unavailable [address] + [place] [address] SMAIL, CORNELIA Unavailable [address] + [place] [address] KRISTAL, ANTHONY Unavailable [address] + [place] [address] R Unavailable Unavailable Unavailable SMAIL, CORNELIA Unavailable [address] + [place] [address] KRISTAL, ANTHONY Unavailable [address] + [place] [address] R Unavailable Unavailable Unavailable SMAIL, CORNELIA Unavailable [address] + [place] [address] KRISTAL, ANTHONY Unavailable [address] + [place] [address] R Unavailable Unavailable Unavailable SMAIL, CORNELIA Unavailable [address] + [place] [address] KRISTAL, ANTHONY Unavailable [address] + [place] [address] R Unavailable Unavailable Unavailable SMAIL, CORNELIA Unavailable [address] + [place] [address] KRISTAL, ANTHONY Unavailable [address] + [place] [address] R Unavailable Unavailable Unavailable SMAIL, CORNELIA Unavailable [address] + [place] [address] KRISTAL, ANTHONY Unavailable [address] + [place] [address] R Unavailable Unavailable Unavailable SMAIL, CORNELIA Unavailable [address] + [place] [address] KRISTAL, ANTHONY Unavailable [address] + [place] [address] R Unavailable Unavailable Unavailable SMAIL, CORNELIA Unavailable [address] + [place] [address] ANTHONY GIRALDO Unavailable [address] + [place] [address] R Unavailable Unavailable Unavailable SMAIL, CORNELIA Unavailable [address] + [place] [address] ANTHONY GIRALDO Unavailable [address] + [place] [address] R Unavailable Unavailable Unavailable SMAIL, CORNELIA Unavailable [address] + [place] [address] SMAIL, CORNELIA Unavailable [address] [phone] [place] [address] SMAIL, CORNELIA Unavailable [address] + [place] [address] ANTHONY GIRALDO Unavailable [address] + [place] [address] R Unavailable Unavailable Unavailable SMAIL, CORNELIA Unavailable [address] + [place] [address] Care Team Providers Name Role Phone WILL LOPEZ MD Attending Unavailable MO , DR. MELENDEZ Primary Care Unavailable MO , DR. MELENDEZ Primary Care Unavailable PACHECO PAREKH MD Consulting Unavailable OWOC , DR. MYKEL Cole Attending Unavailable PACHECO PAREKH MD Referring Unavailable VIRGIL DAMIAN Attending Unavailable MO VERONICA K Primary Care Unavailable Mo DOVeronica Attending Unavailable Mo DOVeronica Referring Unavailable Mo DO Veronica Consulting Unavailable WILL LOPEZ DR Admitting Unavailable WILL LOPEZ DR Attending Unavailable WILL LOPEZ DR Primary Care Unavailable MO, VERONICA DO Consulting Unavailable PROVIDER, UNKNOWN Consulting Unavailable WILL LOPEZ DR Admitting Unavailable WILL LOPEZ DR Attending Unavailable WILL LOPEZ DR Primary Care Unavailable MO, VERONICA Consulting Unavailable ROSA ELENA GIBBS MD Referring Unavailable PROVIDER, UNKNOWN Consulting Unavailable WILL LOPEZ DR Admitting Unavailable WILL LOPEZ DR Attending Unavailable WILL LOPEZ DR Primary Care Unavailable MO VERONICA DO Consulting Unavailable PROVIDER, UNKNOWN Consulting Unavailable WILL LOPEZ DR Admitting Unavailable WILL LOPEZ DR Attending Unavailable WILL LOPEZ DR Primary Care Unavailable MO, VERONICA DO Consulting Unavailable PROVIDER, UNKNOWN Consulting Unavailable WILL LOPEZ DR Admitting Unavailable WILL LOPEZ DR Attending Unavailable WILL LOPEZ DR Primary Care Unavailable MO, VERONICA DO Consulting Unavailable PROVIDER, UNKNOWN Consulting Unavailable LUANA HER DPM Admitting Unavailable LUANA HERM Attending Unavailable HORN, LUANA DPM Primary Care Unavailable MO, VERONICA DO Consulting Unavailable PROVIDER, UNKNOWN Consulting Unavailable Mo, Veronica Attending Unavailable Mo, Veronica Referring Unavailable Mo, Veronica Primary Care Unavailable Sibilia, Octavio Attending Unavailable Mo, Veronica Primary Care Unavailable Tanphaichitr, Natthavat Attending Unavailable Tanphaichitr, Natthavat Referring Unavailable Mo, Veronica Primary Care Unavailable Tia Chirinos Attending Unavailable Mo, Veronica Referring Unavailable Sibilia, Octavio Attending Unavailable Sibilia, Octavio Referring Unavailable Mo, Veronica Primary Care Unavailable Kelsea Lund MECHANICAL DETAILER-C Attending Unavailable Mo, Veronica Primary Care Unavailable Sibilia, Octavio Attending Unavailable Mo, Veronica Primary Care Unavailable Sibilia, Octavio Attending Unavailable Sibilia, Octavio Referring Unavailable Mo, Veronica Primary Care Unavailable Sibilia, Octavio Attending Unavailable Sibilia, Octavio Referring Unavailable Mo, Veronica Primary Care Unavailable Sibilia, Octavio Attending Unavailable Sibilia, Octavio Referring Unavailable Mo, Veronica Primary Care Unavailable Sibilia, Octavio Attending Unavailable Sibilia, Octavio Referring Unavailable Mo, Veronica Primary Care Unavailable Isaías Stroud Attending Unavailable Isaías Stroud Referring Unavailable Mo, Veronica Primary Care Unavailable Tanphaichitr, Natthavat Attending Unavailable Tanphaichitr, Natthavat Referring Unavailable Mo, Veronica Primary Care Unavailable Chetan Medina Attending Unavailable Chetan Medina Referring Unavailable Mo, Veronica Primary Care Unavailable Will Lopez Attending Unavailable Will Lopez Referring Unavailable Mo, Veronica Primary Care Unavailable Will Lopez Attending Unavailable Will Lopez Referring Unavailable Mo, Veronica Primary Care Unavailable Tia Chirinos Attending Unavailable Mo, Veronica Referring Unavailable Mo, Veronica Primary Care Unavailable Mo, Veronica Attending Unavailable Mo, Veronica Primary Care Unavailable Tanphaichitr, Natthavat Attending Unavailable Tanphaichitr, Natthavat Referring Unavailable Mo, Veronica Primary Care Unavailable Chetan Medina Attending Unavailable Chetan Medina Referring Unavailable Veronica Hassan Primary Care Unavailable Veronica Hassan Primary Care Unavailable Lobito Lee Attending Unavailable PROBLEMS PROBLEMS DATE TYPE CONDITION / CODE ATTENDING STATUS SOURCE 11/11/2018 Unknown I12.9 - Mo, Active [place] [facility] disease with stage Repository 1 through stage 4 chronic kidney disease, or unspecified chronic kidney disease / I12.9(ICD-10) 10/04/2018 Unknown E55.9 - Vitamin D Tanphaichitr, Active [place] deficiency, [facility] unspecified / Hospital E55.9(ICD-10) Repository 10/04/2018 Unknown E83.52 - Tanphaichitr, Active [place] Hypercalcemia / [facility] E83.52(ICD-10) Hospital Repository 10/04/2018 Unknown N18.4 - Chronic Tanphaichitr, Active [place] kidney disease, [facility] stage 4 (severe) / Hospital N18.4(ICD-10) Repository 10/04/2018 Unknown D63.1 - Anemia in Tanphaichitr, Active [place] chronic kidney [facility] disease / Hospital D63.1(ICD-10) Repository 10/04/2018 Unknown M10.9 - Gout, Tanphaichitr, Active [place] unspecified / [facility] M10.9(ICD-10) Hospital Repository 07/19/2018 Admitting Unilateral primary WILL LOPEZ Active [facility] osteoarthritis, DR Champagne [facility] knee / [facility] M1711(ICD-10) Repository 07/19/2018 Principle Unilateral primary WILL LOPEZ Active [facility] Diagnosis osteoarthritis, DR Champagne right knee / Hospital M1711(ICD-10) Repository 07/07/2018 Admitting Encounter for other WILL LOPEZ Active [facility] preprocedural DR Champagne examination / Hospital Q90566(ICD-10) Repository 07/07/2018 Principle Encounter for other WILL LOPEZ Active [facility] Diagnosis preprocedural DR Champagne examination / [facility] Q27005(ICD-10) Repository 07/07/2018 Secondary Type 1 diabetes JESSICAWILL Active [facility] mellitus without DR Champagne complications / Hospital E109(ICD-10) Repository 04/19/2018 Admitting Unilateral primary WILL LOPEZ Active [facility] Diagnosis osteoarthritis, DR Champagne left knee / Hospital M1712(ICD-10) Repository 04/19/2018 Principle Unilateral primary WILL LOPEZ Active [facility] Diagnosis osteoarthritis, DR Champagne left knee / Hospital M1712(ICD-10) Repository 04/15/2018 Unknown F11.20 - Opioid Basali, Chetan Active [place] dependence, [facility] uncomplicated / Hospital F11.20(ICD-10) Repository 01/13/2018 Admitting Paroxysmal atrial DAMIAN, Active [facility] diagnosis fibrillation / VIRGIL MARY LOU Three I48.0(ICD-10) Repository 12/24/2017 Unknown R06.2 - Wheezing / Sibilia, Octavio Active [place] R06.2(ICD-10) [facility] Hospital Repository 12/31/2017 Unknown R05 - Cough / Sibilia, Octavio Active [place] R05(ICD-10) [facility] Hospital Repository 12/31/2017 Unknown R06.00 - Dyspnea, Sibilia, Octavio Active [place] unspecified / [facility] R06.00(ICD-10) Hospital Repository 12/31/2017 Unknown I51.7 - Sibilia, Octavio Active [place] Cardiomegaly / [facility] I51.7(ICD-10) Hospital Repository PROCEDURES PROCEDURES No Procedure Records FoundRESULTS RESULTS BASIC METABOLIC Collected: 11/11/2018 Status: F Source: [place] PROFILE (BMP) 12:00 AM [facility] REPOSITORY TYPE CODE TESTS RESULT OUT OF RANGE REFERENCE UNITS LAB L501.0100 74-106 mg/dL Normal GLU 104 Result Comment: Fasting Glucose result from 100 to 125 mg/dL suggests IMPAIRED HOMEOSTASIS per A.D.A. criteria. Please note revised GLUCOSE reference range effective 2018. LAB L501.1000 7-18 mg/dL High BUN 37 LAB L501.1100 0.55-1.02 mg/dL High CREAT,SERUM 1.60 Result Comment: The validity of the calculated GFR AND GFRAA in patients over 70 years has not been determined. Clinical correlation is essential. LAB L501.1110 >60 mL/min Low EST GFR 34 Result Comment: Non- GFR Calc LAB L501.1115 >60 mL/min Low EST GFR - AA 41 Result Comment: GFR Calc LAB L501.1300 10-20 RATIO High BUN/CRE 23.1 LAB L501.2200 8.5-10.1 mg/dL CA Normal 9.7 LAB L501.5300 136-145 mmol/L NA Normal 142 LAB L501.5600 3.5-5.1 mmol/L K Normal 4.9 LAB L501.5900 98-107 mmol/L High CL 108 LAB L501.6100 21.0-32.0 mmol/L Normal CO2 29.0 LAB L501.6200 5-15 Normal GAP 5 Performed By: #### L500.2500 #### [facility] [address] [place], [address] LUMBAR SPINE 2 OR 3 Observed: 10/26/2018 Status: F Source: [place] VIEWS 12:47 PM [facility] REPOSITORY [facility] Imaging Services [address] [place] [address] Lumbar Spine 2 or 3 Views MR#: [id number] Acct: [id number] Name: SUGEY LING Rep #: [id number] : 1950 F 67 From: Dwight Choudhury DO PCP: Veronica Hassan DO Status: REG CLI Study: Lumbar Spine 2 or 3 Views Date of Exam: 10/26/18 Exam# [id number] Ordering Dr: Chetan Medina MD STUDY: X-RAY - LUMBAR SPINE REASON FOR EXAM: Female, 67 years old. Low back pain TECHNIQUE: 3 view(s) of the lumbar spine were obtained. COMPARISON: 06/09/2017 FINDINGS: Normal lumbar lordosis. Slight levoscoliosis. There is a [...] lumbar spine; slightly advanced as compared to 2016 exam Electronically Signed: Dwight Choudhury DO at 11:37 EST Tel , Service support , CC: Chetan Medina MD; Veronica Hassan DO Information Technology Architect: Signed CBC-COMPLETE BLOOD CNT Collected: 10/04/2018 Status: F Source: [place] NO DIFF 11:21 AM [facility] REPOSITORY TYPE CODE TESTS RESULT OUT OF RANGE REFERENCE UNITS LAB L100.1000 4.4-11.0 K/mm3 Normal WBC 7.0 LAB L100.1200 4.2-5.4 M/mm3 Normal RBC 4.27 LAB L100.1300 12.0-15.0 g/dl Normal HGB 12.9 LAB L100.1400 37-47 % Normal HCT 40.3 LAB L100.1500 81-99 fL Normal MCV 94.4 LAB L100.1600 27.0-32.0 pg Normal MCH 30.2 LAB L100.1700 32-36 g/gl Normal MCHC 32.0 LAB L100.1810 11.6-14.6 % High RDW CV 15.0 LAB L100.1820 35.1-43.9 fl High RDW SD 50.3 LAB L100.1900 150-450 K/mm3 Normal PLT 258 LAB L100.2000 6.2-12.0 fl Normal MPV 9.8 Performed By: #### L100.0500 #### [facility] [address] [place], [place], [address] PROTEIN+CREATININE Collected: Status: F Source: [place] RATIO,URINE 10/04/2018 11:21 AM [facility] REPOSITORY TYPE CODE TESTS RESULT OUT OF RANGE REFERENCE UNITS LAB L501.1200 NO RANGE EST. mg/dL Normal UR CREAT 74.00 LAB L501.1930 <11.9 mg/dL Normal 8.6 PROTEIN,UR.R AN. LAB L501.1940 0-200 mg/g CRE Normal PROT:CRE 116 RATIO Performed By: #### L501.0900 #### [facility] [address] [place], [place], [address] RENAL PROFILE Collected: 10/04/2018 Status: F Source: [place] 11:21 AM [facility] REPOSITORY TYPE CODE TESTS RESULT OUT OF RANGE REFERENCE UNITS LAB L501.0100 74-106 mg/dL High GLU 139 Result Comment: Fasting Glucose result greater than or equal to 126 mg/dL suggests DIABETES MELLITUS per A.D.A. criteria. Please note revised GLUCOSE reference range effective 2018. LAB L501.1000 7-18 mg/dL High BUN 29 LAB L501.1100 0.55-1.02 mg/dL High CREAT,SERUM 1.69 Result Comment: The validity of the calculated GFR AND GFRAA in patients over 70 years has not been determined. Clinical correlation is essential. LAB L501.1110 >60 mL/min Low EST GFR 32 Result Comment: Non- GFR Calc LAB L501.1115 >60 mL/min Low EST GFR - AA 39 Result Comment: GFR Calc LAB L501.1300 10-20 RATIO Normal BUN/CRE 17.2 LAB L501.1800 3.2-5.0 g/dL Normal ALB 3.6 LAB L501.2200 8.5-10.1 mg/dL CA Normal 10.0 LAB L501.2300 2.5-4.9 mg/dL Normal PHOS 2.5 LAB L501.5300 136-145 mmol/L NA Normal 143 LAB L501.5600 3.5-5.1 mmol/L K Normal 4.0 LAB L501.5900 98-107 mmol/L CL Normal 106 LAB L501.6100 21.0-32.0 mmol/L Normal CO2 27.0 Performed By: #### L500.3600, L501.1400, L501.5200 #### [facility] [address] [place], [place], [address] URIC ACID Collected: 10/04/2018 Status: F Source: [place] 11:21 AM [facility] REPOSITORY TYPE CODE TESTS RESULT OUT OF RANGE REFERENCE UNITS LAB L501.1400 2.6-6.0 mg/dL Normal URIC 5.6 Result Comment: The drugs N-Acetylcysteine and Metamizole may falsely depress this assay. Performed By: #### L500.3600, L501.1400, L501.5200 #### [facility] [address] [place], [address] MAGNESIUM Collected: 10/04/2018 Status: F Source: [place] 11:21 AM [facility] REPOSITORY TYPE CODE TESTS RESULT OUT OF RANGE REFERENCE UNITS LAB L501.5200 1.6-2.6 mg/dL Normal MG 1.9 Performed By: #### L500.3600, L501.1400, L501.5200 #### [facility] [address] [place], [address] PTHIN Collected: 10/04/2018 Status: F Source: [place] 11:21 AM [facility] REPOSITORY TYPE CODE TESTS RESULT OUT OF RANGE REFERENCE UNITS LAB L509.1000 18.4-80.1 pg/mL Normal PTHIN 36.7 Performed By: #### L509.1000 #### [facility] [address] [place], [address] VITAMIN D,25 HYDROXY Collected: 10/04/2018 Status: F Source: [place] 11:21 AM [facility] REPOSITORY TYPE CODE TESTS RESULT OUT OF RANGE REFERENCE UNITS LAB L506.1000 29.95-100.01 ng/mL Normal Vitamin D 32.8 25-OH Result Comment: Vitamin D 25(OH) Status Range Deficiency <20 ng/mL (50nmol/L) Insuffciency 20 - 30 ng/mL (50 - 75 nmol/L) Sufficiency 30 - 100 ng/mL (75 - 250 nmol/L) Toxicity >100 ng/mL (>250 nmol/L) Performed By: #### L506.1000 #### [facility] [address] [place], [address] FOOT COMPLETE LT Observed: 09/16/2018 Status: F Source: [facility] 2:[address] [address] Patient: SUGEY LING Phone#: : 1950 Age: 67 Gender: F Pt. Type: Out Account: [id number] Location: [id number] Ordering: LUANA HER Exam Date: 09/16/2018/14:01 Family Phys: VERONICA HASSAN Charge Code: [id number] Physician: [place] Order #: [id number] DLP Dose#: PROCEDURE: X-RAY FOOT LT COMPLETE MIN 3 VIEWS COMPARISON: [facility], XR, FOOT COMPLETE LT, 04/21/2013, 9:56. INDICATIONS: Third Metatarsal Pain FINDINGS: BONES: There is diffuse bony demineralization. There is evidence of fusion of the second, third and fourth proximal and middle phalanxes. Postsurgical changes at the medial aspect of the distal first metatarsal and lateral fifth metatarsal. There are degenerative changes of the midfoot. There are degenerative changes of the first MTP articulation. The calcaneal pitch angle measures 13.9. The first inter metatarsal angle measures 13.1, normally less than 10. The hallux valgus angle measures 18.7, normally less than 15. There is a large posterior process of the talus. There is enthesopathy at the Achilles attachment. SOFT TISSUES: Negative. No visible soft tissue swelling. EFFUSION: None visible. OTHER: Negative. CONCLUSION: 1. Pes planus 2. Hallux valgus 3. Diffuse bony demineralization. Dictated by: Laureen Godwin MD on 09/16/2018 at 15:31 Approved by: Laureen Godwin MD on 09/16/2018 at 15:31 [employer] REPORT Observed: 08/03/2018 Status: F [facility] 12:15 AM [facility] NAME ACCOUNT SEX AGE ADMIT DISCHARGE PT MED. NUMBER DATE DATE TYPE RECORD# SUGEY LING [id number] F 67 07/19/18 07/20/18 1 [id number] ROOM: [facility] DATE OF : 1950 DICTATING PHYSICIAN: Collette Campbell DATE OF CONSULTATION: July 20, 2018 CONSULTING PHYSICIAN: Dr. Will Lopez REASON FOR CONSULTATION: Medical management postoperative. PROCEDURE: Right total knee replacement. HISTORY OF PRESENT ILLNESS: This is a 67-year-old lady with a history of severe osteoarthritis of both knees who underwent left total knee replacement in March and now she is undergoing right total knee replacement. The patient has progressive pain in the knee. It reached a point where she failed therapy and underwent right total knee replacement yesterday. The patient yesterday when I saw her in the evening was awake and alert and today she is doing very well, and she is planning to go home. PAST MEDICAL HISTORY: (1) Osteoarthritis. (2) Gout. (3) Hypertension. (4) Asthma. (5) Diabetes mellitus type 2. 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 (7) Acid reflux disease. (8) History of gastritis. (9) Hypercholesterolemia. (10) Difficulty with hearing. 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 PAST SURGICAL HISTORY: The patient has had a (1) Cholecystectomy. (2) Hysterectomy. (3) x2. (4) Lumbar fusion in [place]. MEDICATIONS: The patient is currently on the following medications (1) Advair Diskus 500/50 1 puff twice a day. (2) Albuterol p.r.n. (3) Alendronate 70 mg weekly. (4) Claritin 10 mg daily. (5) Cozaar 50 mg daily. (6) Fenofibrate acid 135 mg daily. (7) Fluticasone 2 sprays each nose daily. (8) Januvia 50 mg daily. (9) Lasix 40 mg daily. (10) Levemir 12 units daily. (11) Maxzide 25/37.5 once daily. (12) Mucinex 600 mg as needed twice a day. (13) Probiotic daily. (14) Fish oil 1200 mg daily. (15) Pantoprazole 40 mg daily. (16) Singulair 10 mg daily. (17) Spiriva 2 puffs daily. (18) Ultram 50 mg every 6 hours as needed. (19) Vitamin D3 2000 units daily. (20) Zantac 75 mg daily. ALLERGIES: The patient is allergic to Augmentin, Plaquenil, clindamycin, Bactrim, morphine, and allopurinol. Page 1 of 2 SUGEY LING A Consultation SOCIAL HISTORY: The patient is disabled, former smoker. She did drink in the past, but not any more. REVIEW OF SYSTEMS: The patient denied fever, chills, or night sweats. No headache, blurry vision, earache, or sore throat. No neck pain, chest pain, shortness of breath, cough or phlegm production. No nausea, vomiting, abdominal pain, constipation, difficulty with urination, or increased frequency. No swelling in the extremities. PHYSICAL EXAMINATION: This 67-year-old lady is sitting in bed. Vital signs has revealed the patient to be -[place]. Blood pressure last evening was 121/78 and today it was 102/50, saturation is between 89 and 98. HEENT: Pupils are round, equal, and reactive. Normal eye motion. Tongue is midline. Neck is supple. Lungs are clear. The heart was regular. No gallop or murmur. Abdomen is soft. Extremities revealed the right knee in ice and blanket. ASSESSMENT: 1. Status post right total knee replacement doing very well. 2. Diabetes - appeared to be stable. 3. History of asthma without acute exacerbation. 4. Hypertension - stable. RECOMMENDATION: The patient will receive incentive spirometry, deep venous thrombosis prophylaxis, physical therapy. She will have continuation of her usual medications for hypertension and diabetes, as well as asthma. No new recommendation. Dictated By: Collette Campbell MD 07/20/18 18:09 JOB #: [id number] Transcribed By: soledad 07/20/18 19:04 Electronically signed by: PATTIE CAMPBELL MD 08/03/18 00:14 Page 2 of 2 SUGEY LING Consultation DISCHARGE SUMMARY Observed: 07/27/2018 Status: F [facility] SUMMARY NAME ACCOUNT SEX AGE ADMIT DISCHARGE PT MED. RECORD# NUMBER DATE DATE TYPE SUGEY LING [id number] F 67 07/19/18 1 [id number] ROOM: [facility] DATE OF : 1950 DICTATING PHYSICIAN: Theresa Galvan PROGRESS NOTE/DISCHARGE SUMMARY ATTENDING PHYSICIAN: Dr. Will Lopez DATE OF ADMISSION: July 19, 2018 DATE OF DISCHARGE: July 20, 2018 ADMITTING DIAGNOSES: 1. Right knee primary osteoarthritis. 2. Gout. 3. Hypertension. 4. Asthma. 5. Diabetes mellitus. 6. Sarcoidosis. 7. Gastroesophageal reflux. 8. Gastritis. 9. Hypercholesterolemia. 10. Left ear hard of hearing. FINAL DIAGNOSES: 1. Right knee primary osteoarthritis, status post right total knee arthroplasty. 2. Gout. 3. Hypertension. 4. Asthma. 5. Diabetes mellitus. 6. Sarcoidosis. 7. Gastroesophageal reflux. 8. Gastritis. 9. Hypercholesterolemia. 10. Left ear hard of hearing. HISTORY OF PRESENT ILLNESS: The patient has an ongoing history of right knee pain. After failing conservative measures, the patient opted to proceed with right total knee replacement surgery. HOSPITAL COURSE: She underwent the above-stated procedure yesterday and did very well. She was admitted to the third floor. No adverse events overnight. The pain in the right knee has been fairly well controlled. She currently denies chest pain, shortness of breath, dizziness, or calf pain. She would like to consider discharge to home later today. She would like to work with home health and physical therapy upon discharge. Page 1 of 2 SUGEY LING A Discharge Summary PHYSICAL EXAMINATION: Vitals: Pulse is 58, respirations 18, blood pressure 102/50, temperature 98.1, and SpO2 of 98% on 2 liters nasal cannula. The patient is alert and oriented x3, in no acute distress at rest, breathing easily without respiratory distress. Inspection of the right knee is with a dressing that is clean, dry and intact. Negative Homans bilaterally without signs of DVT. Sensation is intact to light touch to the bilateral lower extremities. Pedal pulses are present and equal bilaterally. The patient is able to actively plantar and dorsiflex the bilateral feet against resistance. Neurovascularly intact. DIAGNOSTIC DATA: White blood cell count is 13.8, hemoglobin 11.8, hematocrit 35.8, and platelet count 203,000. ASSESSMENT/PLAN: 1. Status post right total knee replacement, postoperative day #1. 2. She will continue [place] 5/325 mg one to two p.o. every 4 hours p.r.n. pain as well as Oramorph 15 mg one p.o. b.i.d. 3. Deep venous thrombosis prophylaxis. Bilateral TEDs, SCDs and Xarelto therapy while an inpatient. Upon discharge, she will be receiving aspirin 325 mg one p.o. b.i.d. for 2 weeks. 4. Begin PT/OT and weightbearing as tolerated on the right lower extremity with a walker. 5. Leukocytosis, afebrile, without acute signs of infection, likely resulting from Decadron versus acute stress response. Anticipate resolution over the next couple of days. 6. History of diabetes mellitus with fairly well maintained/stable blood glucose. I stressed the importance of keeping her blood glucose under 200 in the perioperative period for postoperative healing and to decrease the risk of infection. She voiced understanding. 7. Encouraged incentive spirometry. 8. Continue postoperative medical management per Dr. Campbell. 9. Continue discharge planning with case management. 10. The patient will be discharged with a senna/docusate prescription for constipation. 11. The patient is orthopedically stable and okay for discharge to home today if she is cleared medically, having adequate pain control, and working well with physical therapy. She will follow up in the office in 10 days for reassessment of the right knee with x-rays. Dictated By: Theresa Galvan PA-C 07/20/18 07:59 JOB #: [id number] Transcribed By: shaneka 07/20/18 12:35 Electronically signed by: E-sign Theresa VARGAS 07/27/18 07:47 Page 2 of 2 SUGEY LING Discharge Summary CBC Collected: 07/20/2018 Status: F Source: [facility] 5:12 AM [facility] REPOSITORY TYPE CODE TESTS RESULT OUT OF RANGE REFERENCE UNITS LAB CBC(LOINC) CBC Result Comment: CBC-COMPLETE BLOOD COUNT LAB WBC(LOINC) 4.5 - 10.8 x 10EE3/UL WBC High 13.8 LAB RBC(LOINC) 4.10 - x 10EE6/UL 5.30 RBC Low 4.06 LAB HEMOGLOBIN(LOINC 12.0 - g/dl ) 16.0 Low HEMOGLOBIN 11.8 LAB HEMATOCRIT(LOINC 34.0 - % ) 46.0 HEMATOCRIT 35.8 LAB MCV(LOINC) 80 - 99 fl MCV 88 LAB MCH(LOINC) 27 - 33 pg MCH 29 LAB MCHC(LOINC) 32 - 36 X10 3 MCHC 33 LAB RDW/CV(LOINC) 12.0 - % 15.6 RDW/CV 14.8 LAB PLATELET(LOINC) 150 - 450 x10EE3/UL PLATELET 203 LAB MPV(LOINC) 6.6 - 10.5 fl MPV 7.9 Result Comment: AUTOMATED DIFFERENTIAL LAB NEUT %(LOINC) 46.0 - 76.0 % NEUT % High 87.2 LAB LYMPH %(LOINC) 20.0 - 45.0 % Low LYMPH % 5.8 LAB MONOS %(LOINC) 0.0 - 10.0 % MONOS % 6.6 LAB EO %(LOINC) 0.0 - 7.0 % EO % 0.3 LAB BASO %(LOINC) 0.0 - 2.0 % BASO % 0.1 LAB Lymph #(LOINC) 0.80 - 2.80 x10EE3/U L Lymph # 0.80 LAB Neut #(LOINC) 1.50 - 7.10 x10EE3/U L Neut # High 12.00 LAB Lewis #(LOINC) 0.20 - 1.00 x10EE3/U L Lewis # 0.90 LAB EO #(LOINC) 0.00 - 0.50 x10EE3/U L EO # 0.00 LAB Baso #(LOINC) 0.00 - 0.10 x10EE3/U L Baso # 0.00 LAB MANUAL DIFF(INC) MANUAL DIFF N/A LAB MORPHOLOGY(INC ) MORPHOLOGY N/A Result Comment: {CD] Performed By: #### [id number] #### [facility],[address] [place] [address] BMP WITH EGFR Collected: 07/20/2018 Status: F Source: [facility] 5:12 AM [facility] REPOSITORY TYPE CODE TESTS RESULT OUT OF RANGE REFERENCE UNITS LAB BMP with eGFR(INC) BMP with eGFR Result Comment: BASIC METABOLIC PANEL LAB SODIUM(LOINC) 136 - 145 mmol/l SODIUM Low 133 LAB POTASSIUM(LOINC) 3.5 - 5.1 mmol/L POTASSIUM 4.8 LAB CHLORIDE(LOINC) 98 - 107 mmol/L CHLORIDE 103 LAB CO2(INC) 21.0 - mmol/L 31.0 CO2 22.6 LAB GLUCOSE(LOINC) 74 - 106 mg/dl GLUCOSE High 153 LAB BUN(LOINC) 6 - 20 mg/dl BUN High 30 LAB CREATININE(LOINC) 0.6 - 1.2 mg/dl High CREATININE 1.6 LAB CALCIUM(LOINC) 8.6 - mg/dl 10.2 CALCIUM 8.9 LAB ANION GAP(LOINC) 10 - 20 mmol/L ANION GAP 12 LAB AGE(LOINC) years AGE 67 LAB eGFR(LOINC) 60 - 999 ML/MINUTE eGFR Low 32 LAB eGFR(AA)(LOINC) 60 - 999 ML/MINUTE eGFR(AA) Low 39 Result Comment: ACCORDING TO THE NATIONAL KIDNEY DISEASE EDUCATION PROGRAM(NKDE), A NORMAL eGFR IS A VALUE GREATER THAN OR EQUAL TO 60 ML/MIN/1.73 SQ METERS. CHRONIC KIDNEY DISEASE: <60mL/MIN/1.73 SQ METERS KIDNEY FAILURE: <15mL/MIN/1.73 SQ METERS THIS TEST SHOULD ONLY BE USED FOR PATIENTS 18 YEARS OF AGE AND OLDER. Performed By: #### [id number] #### [facility],[address] [place], [place] [id number] OPERATIVE PROCEDURES Observed: 07/19/2018 Status: F Source: [facility] 4:23 PM [facility] NAME ACCOUNT SEX AGE ADMIT DISCHARGE PT MED. RECORD# NUMBER DATE DATE TYPE HORTENSIA SUGEY A [id number] F 67 07/19/18 1 [id number] ROOM: [facility] DATE OF : 1950 DICTATING PHYSICIAN: Will Lopez DATE OF SURGERY: July 19, 2018 SURGEON: Will Lopez MD RIPENING ROOM ATTENDANT: Theresa Galvan PA-C; MARISOL Shirley ANESTHESIOLOGIST: Declan Mustafa CRNA ANESTHETIC: Duramorph spinal. PREOPERATIVE DIAGNOSIS: Right knee severe primary osteoarthritis. POSTOPERATIVE DIAGNOSIS: Right knee severe primary osteoarthritis. OPERATION PERFORMED: Right total knee replacement. COMPLICATIONS: None. ESTIMATED BLOOD LOSS: Less than 50 mL. SPECIAL MEDICATIONS: Ancef, tranexamic acid and vancomycin. INDICATIONS FOR SURGERY: The patient is a 67-year-old female who had a left knee replacement and done well. She wished to have a right total knee replacement. Appropriate informed consent was obtained and signed. FINDINGS: Intraoperative findings showed severe arthritis of the right knee. She underwent a standard small incision, anterior approach to the knee followed by a cemented ConforMIS total knee replacement using a pre-made femur and tibia. We used a 29 x 6 mm symmetric patellar insert. We used insert 7.9 mm laterally and 6.1 mm medially. This reproduced her anatomy nicely. She underwent standard wound closure in layers. budget assistant, physician marketing communications assistant, was utilized throughout the entire procedure. She helped with patient positioning, holding of retractors and exposure throughout. She helped with positioning of our cutting guides. She helped with cementation of components, would closure, bandage application, and patient transfer. Without surgical Page 1 of 3 SUGEY LING Operative Report surgical first assistant, surgical time would have been increased, and surgical outcome could have been less optimal. DESCRIPTION OF OPERATION: The patient was taken to the operating room and transferred to the OR table. She was given a Duramorph spinal anesthetic. Ancef and vancomycin were given IV preoperatively. The patient had PAULIE hose and an SCD on the nonoperative limb. The right upper thigh was well padded. The right lower extremity was prepped, padded and draped in the usual sterile orthopedic fashion for the procedure. We began by injecting our knee with our pain-relieving solution of ropivacaine, epinephrine, and Duramorph. We exsanguinated the limb and applied the tourniquet to 300 mmHg. A midline incision was made through skin and subcutaneous tissue, bringing us down to the extensor mechanism. Medial parapatellar arthrotomy was carried out. Straw-colored joint fluid was evacuated. A sleeve of tissue was raised off the upper and medial tibia. We resected some of the infrapatellar fat pad. We removed degenerative medial and lateral menisci. We removed the ACL. The PCL was preserved. The collateral ligaments were preserved. We took tissue off the anterior aspect of the distal femur and removed bone spurs from about the patella. Severe arthritis was noted, specifically in the patella and medial compartment. At this point, we used the pre-made cutting guide system for the femoral cuts with the help of the assistants holding the retractors, holding the limb, and exposing. We went with a standard distal cut as well as our anterior, posterior and chamfer cuts under standard technique. Once this was done, we went to the tibial side. We placed the appropriate retractors, held by the assistants. We went with the standard cut using the external alignment guide and the pre-made cutting guide, held in place with 3 pins. The cut was carried out. The bony fragments were removed. We removed bone spurs from the posteromedial and posterolateral aspect of the femur. We placed our femoral trial and tibial trial; that was allowed to free float. We were happy with our construct. With the femoral trial on, the tibial trial was allowed to free float. We ultimately marked its position. We ultimately pinned the tibial tray in place with good position. The retractors were held by the assistants. We used the 12 mm drill and keel for the cruciate-retaining prosthesis. We then everted the patella and measured it. Resection was carried out, leaving us about a 15 mm thick patella. We trialed and were happy with our construct with a 29 x 6 mm. The clamp was held by the surgeon while the marketing communications assistant drilled through it with the drill, placing 3 holes. The trial was placed and removed. The wound was thoroughly irrigated, cleaned and dried. Bleeding was controlled at the back of the knee with the Bovie. We injected the back of the knee with our pain-relieving solution. Two full batches of bone cement were mixed. We thoroughly irrigated, cleaned and dried the knee. We cemented the tibia, femur and patella. The patella was clamped in place, and the other things were hammered into position. Excess bone cement was removed while the surgeon held the knee in full extension with inserts in place. The marketing communications assistant injected the remainder of our pain-relieving solution throughout the knee carefully. Once that was done, the tourniquet was let down at 40 minutes. The bleeding was controlled with the Bovie. The wound edges were again thoroughly irrigated. We trialed and decided on the above-stated inserts. Each was placed sequentially after irrigating and cleaning that side of the knee. Once this was done, he was placed through full range of motion. The patella tracked nicely. The wound was again thoroughly irrigated, cleaned and dried. Page 2 of 3 SUGEY LING Operative Report The arthrotomy was repaired with #1 Vicryl about the patella, running #2 Stratafix, a mid-layer of 0 Vicryl, inverted 2-0 Vicryl, skin prep, Steri- Strips, 4x4s, ABD, Kerlix, SINA wrap and PAULIE hose. She was awakened from her anesthetic and transferred back to her own bed in the recovery room in satisfactory condition. We are planning on using Xarelto originally for DVT prevention. May switch to aspirin tomorrow. We will continue her on [place] and extended-release morphine, which the patient states worked for her previously. She denied any true allergies to those. Hopefully she will be discharged to home tomorrow. Dictated By: Will Lopez MD 07/19/18 11:20 JOB #: [id number] Transcribed By: shaneka 07/19/18 15:39 Electronically signed by: E-SIGN DR. WILL LOPEZ M.D. 07/19/18 16:23 Page 3 of 3 SUGEY LING Operative Report FINAL SURGICAL Observed: 07/19/2018 Status: F Source: [facility] PATHOLOGY REPORT 2:37 PM [facility] REPOSITORY . Pathology Reports Accession: Collected Date/Time: Received Date/Time: Pathologist: [id number] 07/19/2018 14:37 EDT 07/20/2018 14:38 EDT MD KOTA CERNA Final Surgical Pathology Report DIAGNOSIS: RIGHT KNEE, REPLACEMENT: - OSTEOARTHRITIS WITH IRREGULAR PITTED ARTICULAR SURFACE AND EBURNATION. - NEGATIVE FOR INFLAMMATION OR NEOPLAIA. COMMENT: [facility]# [id number] CLINICAL INFORMATION: UNILATERAL PRIMARY OSTEOARTHRITIS, RIGHT KNEE SPECIMEN: A JOINT, RESEC - RIGHT KNEE BONE GROSS DESCRIPTION: Received in formalin labeled with the patient's name are multiple convex and concave fragmented portions of benites-yellow bone and soft tissue aggregating 8 x 8 x 3 cm. The articular surfaces are focally eburnated and the cartilage is focally nodular. The underlying bone is yellow and dense to trabecular. Human Resource Intern section(s) are submitted following decalcification in one cassette. Dictated by Dallas VARGAS ([facility]) MICROSCOPIC DESCRIPTION: Slides reviewed. Electronically Signed by Pathology Report verified by [facility] Electronically signed by KOTA CERNA MD Sign out Date: 07/23/2018 13:49 Performing Lab: [facility], [address] [place] [address] Performed By: #### SPFR #### [place] [address] KNEE 2 VIEWS RT Observed: 07/19/2018 Status: F Source: [facility] 11:52 AM [place] [address] Patient: SUGEY LING Phone#: : [phone] Age: 67 Gender: F Pt. Type: In Account: [id number] Location: [facility] Ordering: WILL LOPEZ Exam Date: 07/19/2018/11:45 Family Phys: VERONICA HASSAN Charge Code: [id number] Physician: [place] Order #: [id number] DLP Dose#: PROCEDURE: X-RAY KNEE RT 2 VIEWS COMPARISON: None. INDICATIONS: Post operative FINDINGS: BONES: A total knee prosthesis is present. The adjacent bony architecture is intact. SOFT TISSUES: Postsurgical soft tissue air is present. EFFUSION: None visible. OTHER: Negative. CONCLUSION: 1. Promi prosthesis is present. Dictated by: Jennifer Yao MD on 07/19/2018 at 12:00 Approved by: Jennifer Yao MD on 07/19/2018 at 12:00 Observed: 07/19/2018 Status: F Source: [facility] MRSA SCREEN NARES 8:24 AM [facility] REPOSITORY MRSA SCREEN NEGATIVE Methicillin resistant Staphylococcus aureus is a major cause of nosocomial and life threatning infections. MRSA infections have been associated with high rates of mortality and morbidity. This test is used for the qualitative detection of nasal colonization of methicillin resistant Staphylococcus aureus (MRSA) to aid in the prevention and control of MRSA infections in health care settings. The test is performed on anterior nares specimens from patients and healthcare workers to screen for MRSA colonization. This test is not intended to diagnose MRSA infection nor to guide or monitor treatment of infection. Performed By: #### [id number] #### [facility],[address] [place] [address] CBC Collected: 07/07/2018 Status: F Source: [facility] 10:52 AM [facility] REPOSITORY TYPE CODE TESTS RESULT OUT OF RANGE REFERENCE UNITS LAB CBC(LOINC) CBC Result Comment: CBC-COMPLETE BLOOD COUNT LAB WBC(LOINC) 4.5 - 10.8 x 10EE3/UL WBC 9.1 LAB RBC(LOINC) 4.10 - x 10EE6/UL 5.30 RBC 4.51 LAB HEMOGLOBIN(LOINC) 12.0 - g/dl 16.0 HEMOGLOBIN 13.4 LAB HEMATOCRIT(LOINC) 34.0 - % 46.0 HEMATOCRIT 39.8 LAB MCV(LOINC) 80 - 99 fl MCV 88 LAB MCH(LOINC) 27 - 33 pg MCH 30 LAB MCHC(LOINC) 32 - 36 X10 3 MCHC 34 LAB RDW/CV(LOINC) 12.0 - % 15.6 RDW/CV 14.9 LAB PLATELET(LOINC) 150 - 450 x10EE3/UL PLATELET 348 LAB MPV(LOINC) 6.6 - 10.5 fl MPV 7.5 Result Comment: AUTOMATED DIFFERENTIAL LAB NEUT %(LOINC) 46.0 - 76.0 % NEUT % 70.0 LAB LYMPH %(LOINC) 20.0 - 45.0 % Low LYMPH % 15.2 LAB MONOS %(LOINC) 0.0 - 10.0 % MONOS % High 10.7 LAB EO %(LOINC) 0.0 - 7.0 % EO % 3.5 LAB BASO %(LOINC) 0.0 - 2.0 % BASO % 0.6 LAB Lymph #(LOINC) 0.80 - 2.80 x10EE3/U L Lymph # 1.40 LAB Neut #(LOINC) 1.50 - 7.10 x10EE3/U L Neut # 6.40 LAB Lewis #(LOINC) 0.20 - 1.00 x10EE3/U L Lewis # 1.00 LAB EO #(LOINC) 0.00 - 0.50 x10EE3/U L EO # 0.30 LAB Baso #(LOINC) 0.00 - 0.10 x10EE3/U L Baso # 0.10 LAB MANUAL DIFF(LOINC) MANUAL DIFF N/A LAB MORPHOLOGY(LOINC ) MORPHOLOGY N/A Result Comment: {CD] Performed By: #### [id number] #### [facility],[address] [place] [address] BMP WITH EGFR Collected: 07/07/2018 Status: F Source: [facility] 10:52 AM [facility] REPOSITORY TYPE CODE TESTS RESULT OUT OF RANGE REFERENCE UNITS LAB BMP with eGFR(LOINC) BMP with eGFR Result Comment: BASIC METABOLIC PANEL LAB SODIUM(LOINC) 136 - 145 mmol/l SODIUM 139 LAB POTASSIUM(LOINC) 3.5 - 5.1 mmol/L POTASSIUM 4.6 LAB CHLORIDE(LOINC) 98 - 107 mmol/L CHLORIDE 104 LAB CO2(LOINC) 21.0 - mmol/L 31.0 CO2 27.8 LAB GLUCOSE(LOINC) 74 - 106 mg/dl GLUCOSE 100 LAB BUN(LOINC) 6 - 20 mg/dl BUN High 26 LAB CREATININE(LOINC) 0.6 - 1.2 mg/dl High CREATININE 1.6 LAB CALCIUM(LOINC) 8.6 - mg/dl 10.2 CALCIUM High 10.3 LAB ANION GAP(LOINC) 10 - 20 mmol/L ANION GAP 12 LAB AGE(LOINC) years AGE 67 LAB eGFR(LOINC) 60 - 999 ML/MINUTE eGFR Low 32 LAB eGFR(AA)(LOINC) 60 - 999 ML/MINUTE eGFR(AA) Low 39 Result Comment: ACCORDING TO THE NATIONAL KIDNEY DISEASE EDUCATION PROGRAM(NKDE), A NORMAL eGFR IS A VALUE GREATER THAN OR EQUAL TO 60 ML/MIN/1.73 SQ METERS. CHRONIC KIDNEY DISEASE: <60mL/MIN/1.73 SQ METERS KIDNEY FAILURE: <15mL/MIN/1.73 SQ METERS THIS TEST SHOULD ONLY BE USED FOR PATIENTS 18 YEARS OF AGE AND OLDER. Performed By: #### [id number] #### [place] [address] HGB A1C Collected: 07/07/2018 Status: F Source: [facility] 10:52 AM [facility] REPOSITORY TYPE CODE TESTS RESULT OUT OF RANGE REFERENCE UNITS LAB HGB 4.4 - 6.4 % A1C(INC) HGB A1C 6.4 Result Comment: {HB] {A1] Performed By: #### [id number] #### [place] [address] CT LOWER EXTREMITY RT Observed: 06/03/2018 Status: F Source: [facility] WO 1:14 PM [facility] REPOSITORY [place] [address] Patient: SUGEY LING Phone#: : [phone] Age: 67 Gender: F Pt. Type: Out Account: [id number] Location: [facility] Ordering: WILL LOPEZ Exam Date: 06/03/2018/12:53 Family Phys: VERONICA HASSAN Charge Code: [id number] Physician: [place] Order #: [id number] DLP Dose#: PROCEDURE: CT LOWER EXTREMITY RT WO CONTRAST COMPARISON: None. INDICATIONS: Conformis TECHNIQUE: Multi-planar CT images were created without intravenous contrast. All CT scans at this facility use dose modulation, iterative reconstruction, and/or weight based dosing when appropriate to reduce radiation dose to as low as reasonably achievable. IV CONTRAST: No IV contrast used,0ml TOTAL DOSE: 37.30 CTDIvol(mGy) FINDINGS: BONES: There is spurring at the undersurface of the patella, than medial and lateral femoral condyles and tibial plateau. There is a loose body posterior to the medial tibial plateau 0.7 x 0.3 x 1.2 cm. There is medial compartment joint space loss. There is an os trigonum measuring 1.6 x 0.7 cm. Subchondral cyst formation are seen in the talus. SOFT TISSUES: Negative. No visible soft tissue swelling. EFFUSION: There is a small suprapatellar joint effusion. 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 There are atherosclerotic calcifications present. There are lipomas in the medial gastrocnemius muscle, series 2 image 381. There is a small fat containing right inguinal hernia. CONCLUSION: 1. Tricompartmental osteoarthritic changes. 2. Pereyra cyst. Continued Report - Page 2 of 2 Patient: SUGEY LING. Phone#: : [phone] Age: 67 Gender: F Pt. Type: Out Account: [id number] Location: [facility] Ordering: WILL LOPEZ Exam Date: 06/03/2018/12:53 Family Phys: VERONICA HASSAN Charge Code: [id number] Physician: [place] Order #: [id number] DLP Dose#: Dictated by: Laureen Godwin MD on 06/03/2018 at 18:52 Approved by: Laureen Godwin MD on 06/03/2018 at 18:52 ORTHOPEDIC VISIT Observed: 05/22/2018 Status: F Source: [facility] REPORT 2:08 PM [facility] REPOSITORY [facility] Orthopa[facility] Sports Medicine [address] [place] [address] [address] [place] [address] OFFICE VISIT Date of Service: 05/11/18 MR#: [id number] Acct: [id number] Name: SUGEY LING Rep #: [id number] : 1950 Provider: Tia Chirinos MD Age/Sex: 67/F Location[place] [facility] [place] Status: Signed Intake Intake Visit Reasons: LOW BACK Is patient in pain?: Yes Allergies clindamycin Allergy (Verified 05/11/18 15:35) Rash morphine Allergy (Verified 05/11/18 15:35) Rash ciprofloxacin Adverse Reaction (Mild, Verified 05/11/18 15:35) Upset Stomach amoxicillin trihydrate [From Augmentin] Adverse Reaction (Verified 05/11/18 15:35) Nausea potassium clavulanate [From Augmentin] Adverse Reaction (Verified 05/11/18 15:35) Nausea Medications Albuterol Aerosols [Ventolin Aerosols] 2.5 mg INHALATION Q6H PRN PRN 07/07/14 [History Confirmed 01/07/18] Fenofibric Acid (Choline) [Trilipix] 135 mg PO DAILY 07/07/14 [History Confirmed 01/07/18] Lactobacillus Combination No.4 [Probiotic] 1 ea PO DAILY 07/07/14 [History Confirmed 01/07/18] Loratadine [Claritin] 10 mg PO DAILY 07/07/14 [History Confirmed 01/07/18] Losartan Potassium [Cozaar] 50 mg PO DAILY 07/07/14 [History Confirmed 01/08/18] Montelukast [Singulair] 10 mg PO QHS [...] Confirmed 01/07/18] Fluticasone 0.05% [Flonase Nasal [place]] 1 spray NASAL DAILY 06/21/17 [History Confirmed 01/07/18] Fluticasone/Salmeterol [Advair 500/50 Mcg Diskus] 1 puff INHALATION BID 06/21/17 [History Confirmed 01/08/18] Furosemide [Lasix] 40 mg PO DAILY PRN PRN 06/21/17 [History Confirmed 01/07/18] Insulin Detemir [Levemir (BKC)] 24 units SC QHS 06/21/17 [History Confirmed 01/08/18] [place]-3S/Dha/Epa/Fish Oil [Fish Oil 1,200 mg Softgel] 1 ea PO DAILY 06/21/17 [History Confirmed 01/07/18] Pantoprazole Sodium [Protonix] 40 mg PO BID 06/21/17 [History Confirmed 01/08/18] Tiotropium [place] [Spiriva Respimat] 2 puff IH DAILY 06/21/17 [History Confirmed 01/08/18] Tramadol HCl [Ultram] 50 mg PO BID 06/21/17 [History Confirmed 01/07/18] Albuterol Inhaler [Ventolin Hfa (SP)] 1 - 2 puff INHALATION Q4H PRN PRN 12/04/17 [History Confirmed 01/08/18] Sour Scott Extract [Tart Scott Extract] 1,000 mg PO DAILY 01/07/18 [History Confirmed 01/07/18] PFSH Social History Smoking Status: Former smoker HPI LOW BACK: Details: [...] her right side. It is improved with nothing. 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 machine repairman who would not clear her for a 6 hour surgery[address] Patient saw Dr Medina who gave her a caudal injection which was helpful. She has spoken with Dr Medina in the past regarding a spinal stimulator. Patient is currently taking pain medications from Dr Lopez who recently did her TKA. She had [...] Eyes Reports system reviewed and no additional complaints, except as docu ENT Reports system reviewed and no additional complaints, except as docu Card Reports system reviewed and no additional complaints, except as docu Resp Reports system reviewed and no additional complaints, except as docu GI Reports system reviewed and no additional complaints, except as docu Reports system reviewed and no additional complaints, except as docu Musc Reports radiating pain into limb, Reports back pain, Reports numbness Skin/Breast Reports system reviewed and no additional complaints, except as docu Neuro Yes system reviewed and no additional complaints, except as docu, Yes numbness Psych Reports system reviewed and no additional complaints, except as docu Endo Reports system reviewed and no additional complaints, except as docu Ortho Exam Spine Neuro: Yes Straight Leg Raise (negative bilaterally) and Fischer's (negative bilaterally) General: alert, oriented x3 Capillary Refill <2sec: Yes Gait: antalgic (recent knee surgery) Motor: strength 5/5 throughout Sensory Exam: no sensory deficits noted DTR's: Rt Patellar: 2+, Rt Ankle: 2+, Lt Ankle: 2+ Details: right greater trochanteric and IT band tenderness SPINE TESTING CERVICAL THORACIC LUMBAR SLR: Negative Musculoskeletal General: Yes normal posture Thoracic/Lumbar Spine: [...] lumbar spine 06/09/2017 diffuse spondylosis with prior L4- S1 instrumentation MRI lumbar spine 04/24/2017 diffuse spondylosis with right L3-4 foraminal stenosis. posterior fluid collection extending from L4-S1 I/R/P: 1. back pain 2. right leg pain 3. prior lumbar surgery, elsewhere x 2 with postoperative dural leak 4. h/o atrial fibrillation, CRI, DM 5. SI joint pain Ms. Ling presents with back and right leg pain. Discussed operative and nonoperative treatment options to include extension of fusion L3-S1 with instrumented fusion, allograft. She declines spine surgery. She [...] Care Code Off vis,est,level 4 Diagnoses Lumbar radiculopathy M54.16 05/22/18 1408 <Electronically signed by Tia Chirinos MD> Date Tia Chirinos MD Cosigner Signature: Date (if applicable) CC: Chetan Medina MD SCREENING MAMM (CAD), Observed: 05/20/2018 Status: F Source: [facility] 10:52 AM [facility] REPOSITORY [facility] Imaging Services [address] [place] [id number] SCREENING MAMM (CAD), BILAT MR#: [id number] Acct: [id number] Name: SUGEY LING Rep #: [id number] : 1950 F 67 From: Anam Larios MD PCP: Veronica Hassan DO Status: REG CLI Study: SCREENING MAMM (CAD), BILAT Date of Exam: 05/20/18 Exam# [id number] Ordering Dr: Veronica Hassan DO MAMMOGRAPHY - BILATERAL SCREENING REASON FOR EXAM: Female, 67 years old. Routine annual screening examination. PERTINENT HISTORY: Non-contributory. TECHNIQUE: Digital bilateral breast arie (3D mammographic acquisition) in the CC and MLO projections. 2-D mediolateral oblique (MLO) and craniocaudad (CC) views of both breasts were obtained. CAD: Full Field Digital Mammography with Computer Added Detection was performed. COMPARISON: Comparison is made with [...] delay biopsy of a clinically suspicious abnormality. [id number] Electronically Signed: Anam Larios MD at 7:57 EDT Tel [phone], Service support , CC: Veronica Hassan DO Information Technology Architect: Signed DISCHARGE SUMMARY Observed: 05/03/2018 Status: F Source: [facility] 10:11 AM [facility] SUMMARY NAME ACCOUNT SEX AGE ADMIT DISCHARGE PT MED. RECORD# NUMBER DATE DATE TYPE SUGEY LING [id number] F 67 04/19/18 1 [id number] ROOM: [facility] DATE OF : 1950 DICTATING PHYSICIAN: Theresa Galvan PROGRESS NOTE/DISCHARGE SUMMARY ATTENDING PHYSICIAN: Dr. Will Lopez DATE OF ADMISSION: April 19, 2018 DATE OF DISCHARGE: April 20, 2018 ADMITTING DIAGNOSES: 1. Left knee primary osteoarthritis. 2. History of gout. 3. Hypertension. 4. Asthma. 5. Diabetes mellitus. 6. Sarcoidosis of the right lung. 7. Gastroesophageal reflux. 8. Gastritis. 9. Hypercholesterolemia. 10. Left ear hard of hearing. FINAL DIAGNOSES: 1. Left knee primary osteoarthritis, status post left total knee arthroplasty. 2. History of gout. 3. Hypertension. 4. Asthma. 5. Diabetes mellitus. 6. Sarcoidosis of the right lung. 7. Gastroesophageal reflux. 8. Gastritis. 9. Hypercholesterolemia. 10. Left ear hard of hearing. HOSPITAL COURSE: The patient has a history of ongoing left knee pain. After failing conservative measures, the patient opted to proceed with left total knee arthroplasty and underwent a procedure on April 19, 2018. No adverse events overnight. The pain in the left knee has been well controlled. She currently denies chest pain, shortness of breath, dizziness or calf pain. She has been on telemetry secondary to refractive atrial fibrillation following a previous surgical procedure. The patient denies chest pain, shortness of breath, dizziness or calf pain. She is doing well overall. She would like to be discharged to home later today. PHYSICAL EXAMINATION: Vitals: Pulse is 64, respirations 19, blood pressure 119/52, Page 1 of 2 SUGEY LING Discharge Summary temperature 97.7, and SpO2 97% on 4 liters nasal cannula. The patient is alert and oriented x3 and in no acute distress at rest, breathing easily without respiratory distress. Inspection of the left knee reveals a dressing that is clean, dry and intact. Negative Homans bilaterally without signs of DVT. Sensation is intact to light touch. The patient is able to actively plantar and dorsiflex the bilateral feet against resistance. Pedal pulses are present and equal bilaterally. The patient is neurovascularly intact. DIAGNOSTIC DATA: White blood cell count is 16.8, hemoglobin 11.6, hematocrit 34.2, and platelet count 247,000. Potassium is elevated at 5.4, and most recent blood glucose was 172. ASSESSMENT/PLAN: 1. Status post left total knee arthroplasty, postoperative day #1. 2. Continue Oramorph and Percocet for pain control. The patient will be discharged with prescriptions for both. 3. Deep venous thrombosis prophylaxis with bilateral TEDs and SCDs. Begin Xarelto therapy. She will be discharged with a prescription for aspirin 325 mg one p.o. b.i.d. 4. Begin physical therapy and occupational therapy. Weightbearing as tolerated to the left lower extremity with a walker. 5. Leukocytosis, afebrile without acute signs of infection, likely resulting from Decadron versus acute stress response. Anticipate resolution over the next couple of days. 6. Plan to discontinue Winter catheter, being sure the patient is able to actively void on her own. 7. Hyperkalemia. Laboratory value is less than 6. Continue to monitor. 8. History of diabetes mellitus. Recommended tight glycemic control in the postoperative period, particularly keeping blood sugars less than 200. The patient voiced understanding. 9. Continue postoperative medical management per Dr. Gibbs. 10. Encouraged incentive spirometry. 11. Wean from oxygen per nasal cannula. 12. Continue discharge planning with case management. We will place orders for home health, physical therapy and nursing. Plan for discharge to home today if the patient is cleared medically. The patient will follow up in a week for reassessment of the left knee with x-rays. Dictated By: Theresa Galvan PA-C 04/20/18 07:50 JOB #: [id number] Transcribed By: shaneka 04/20/18 08:54 Electronically signed by: E-sign Theresa VARGAS 04/29/18 13:49 Page 2 of 2 SUGEY LING Discharge Summary BASIC METABOLIC Collected: 04/22/2018 Status: F Source: [facility] PROFILE (BMP) 12:32 PM [facility] REPOSITORY TYPE CODE TESTS RESULT OUT OF RANGE REFERENCE UNITS LAB L501.0100 74-106 mg/dL High GLU 112 Result Comment: Fasting Glucose result from 100 to 125 mg/dL suggests IMPAIRED HOMEOSTASIS per A.D.A. criteria. Please note revised GLUCOSE reference range effective 2018. LAB L501.1000 7-18 mg/dL High BUN 26 LAB L501.1100 0.55-1.02 mg/dL High CREAT,SERUM 1.41 Result Comment: The validity of the calculated GFR AND GFRAA in patients over 70 years has not been determined. Clinical correlation is essential. LAB L501.1110 >60 mL/min Low EST GFR 40 Result Comment: Non- GFR Calc LAB L501.1115 >60 mL/min Low EST GFR - AA 48 Result Comment: GFR Calc LAB L501.1300 10-20 RATIO Normal BUN/CRE 18.4 LAB L501.2200 8.5-10.1 mg/dL CA Normal 8.7 LAB L501.5300 136-145 mmol/L NA Normal 138 LAB L501.5600 3.5-5.1 mmol/L K Normal 4.4 LAB L501.5900 98-107 mmol/L CL Normal 104 LAB L501.6100 21.0-32.0 mmol/L Normal CO2 31.0 LAB L501.6200 5-15 Low GAP 3 Performed By: #### L500.2500 #### [facility] [address] [place], [address] PROGRESS NOTE Observed: 04/20/2018 Status: F [facility] PROGRESS NOTE NAME ACCOUNT SEX AGE ADMIT DISCHARGE PT MED. RECORD# NUMBER DATE DATE TYPE SUGEY LING [id number] F 67 04/19/18 1 [id number] ROOM: [id number] DATE OF : 1950 DICTATING PHYSICIAN: Rosa Elena Gibbs DATE OF SERVICE: April 20, 2018 SUBJECTIVE: Events noted. The patient is feeling better. Her potassium was mildly elevated, and her renal function is showing elevated BUN and creatinine. The patient is telling me that she does have chronic kidney disease, and this is her normal renal function. OBJECTIVE: No acute distress, well-developed, well-nourished, sitting in a recliner chair comfortably. Blood pressure is 108/50, heart rate 68, respiratory rate 19, temperature 97.7, oxygen saturation 95% on 2 liters nasal cannula. Skin is warm and dry. Neck is supple. No nodes. No masses. No JVD. Lungs: Symmetrical, equal lung expansion, clear to auscultation, respiratory effort normal. Heart is regular rate and rhythm. Neurologic: The patient was alert and oriented x3. DIAGNOSTIC DATA: Laboratory data: WBCs 16.8, hemoglobin 11.6, hematocrit 34.2, platelet count 247,000. Sodium 132, potassium 5.4, BUN 33, creatinine 1.7, glucose 156. ASSESSMENT/PLAN: 1. Status post left total knee arthroplasty - doing well. 2. Hypertension with an episode of low blood pressure, now recovered. We will continue current treatment. 3. Chronic kidney disease stage IV with elevated BUN and creatinine and potassium. No objection from medical point of view for the patient to go home, and she was advised to check basic metabolic panel in 2 days. 4. Obstructive sleep apnea associated with hypoxemia. The patient at home uses oxygen in conjunction with her CPAP, and now with her pain medications she may need the oxygen treatment during the day. She does have a Concentrator and she can use it p.r.n. during the day. 5. No objection for the patient to be discharged from a medical point of view. Dictated By: Rosa Elena Gibbs MD 04/20/18 12:22 JOB #: [id number] Transcribed By: am 04/20/18 13:20 Electronically signed by: Page 1 of 2 SUGEY LING Progress Note E.Sign Dr.Butros Sai Allen 04/20/18 18:41 Page 2 of 2 SUGEY LING Progress Note CBC Collected: 04/20/2018 Status: F Source: [facility] 5:23 AM [facility] REPOSITORY TYPE CODE TESTS RESULT OUT OF RANGE REFERENCE UNITS LAB CBC(LOINC) CBC Result Comment: CBC-COMPLETE BLOOD COUNT LAB WBC(LOINC) 4.5 - 10.8 x 10EE3/UL WBC High 16.8 LAB RBC(LOINC) 4.10 - x 10EE6/UL 5.30 RBC Low 3.81 LAB HEMOGLOBIN(LOINC 12.0 - g/dl ) 16.0 Low HEMOGLOBIN 11.6 LAB HEMATOCRIT(LOINC 34.0 - % ) 46.0 HEMATOCRIT 34.2 LAB MCV(LOINC) 80 - 99 fl MCV 90 LAB MCH(LOINC) 27 - 33 pg MCH 30 LAB MCHC(LOINC) 32 - 36 X10 3 MCHC 34 LAB RDW/CV(LOINC) 12.0 - % 15.6 RDW/CV 14.8 LAB PLATELET(LOINC) 150 - 450 x10EE3/UL PLATELET 247 LAB MPV(LOINC) 6.6 - 10.5 fl MPV 7.9 Result Comment: AUTOMATED DIFFERENTIAL LAB NEUT %(LOINC) 46.0 - 76.0 % NEUT % High 89.1 LAB LYMPH %(LOINC) 20.0 - 45.0 % Low LYMPH % 4.0 LAB MONOS %(LOINC) 0.0 - 10.0 % MONOS % 6.0 LAB EO %(LOINC) 0.0 - 7.0 % EO % 0.2 LAB BASO %(LOINC) 0.0 - 2.0 % BASO % 0.7 LAB Lymph #(LOINC) 0.80 - 2.80 x10EE3/U Low L Lymph # 0.70 LAB Neut #(LOINC) 1.50 - 7.10 x10EE3/U L Neut # High 15.00 LAB Lewis #(LOINC) 0.20 - 1.00 x10EE3/U L Lewis # 1.00 LAB EO #(LOINC) 0.00 - 0.50 x10EE3/U L EO # 0.00 LAB Baso #(LOINC) 0.00 - 0.10 x10EE3/U L Baso # 0.10 LAB MANUAL DIFF(LOINC) MANUAL DIFF N/A LAB MORPHOLOGY(INC ) MORPHOLOGY N/A Result Comment: {CD] Performed By: #### [id number] #### [facility],[address] [place] [address] BMP WITH EGFR Collected: 04/20/2018 Status: F Source: [facility] 5:23 AM [facility] REPOSITORY TYPE CODE TESTS RESULT OUT OF RANGE REFERENCE UNITS LAB BMP with eGFR(LOINC) BMP with eGFR Result Comment: BASIC METABOLIC PANEL LAB SODIUM(LOINC) 136 - 145 mmol/l SODIUM Low 132 LAB POTASSIUM(LOINC) 3.5 - 5.1 mmol/L High POTASSIUM 5.4 LAB CHLORIDE(LOINC) 98 - 107 mmol/L CHLORIDE 104 LAB CO2(LOINC) 21.0 - mmol/L 31.0 CO2 24.3 LAB GLUCOSE(LOINC) 74 - 106 mg/dl GLUCOSE High 156 LAB BUN(LOINC) 6 - 20 mg/dl BUN High 33 LAB CREATININE(LOINC) 0.6 - 1.2 mg/dl High CREATININE 1.7 LAB CALCIUM(LOINC) 8.6 - mg/dl 10.2 CALCIUM 9.2 LAB ANION GAP(LOINC) 10 - 20 mmol/L ANION Low GAP 9 LAB AGE(LOINC) years AGE 67 LAB eGFR(LOINC) 60 - 999 ML/MINUTE eGFR Low 30 LAB eGFR(AA)(LOINC) 60 - 999 ML/MINUTE eGFR(AA) Low 36 Result Comment: ACCORDING TO THE NATIONAL KIDNEY DISEASE EDUCATION PROGRAM(NKDE), A NORMAL eGFR IS A VALUE GREATER THAN OR EQUAL TO 60 ML/MIN/1.73 SQ METERS. CHRONIC KIDNEY DISEASE: <60mL/MIN/1.73 SQ METERS KIDNEY FAILURE: <15mL/MIN/1.73 SQ METERS THIS TEST SHOULD ONLY BE USED FOR PATIENTS 18 YEARS OF AGE AND OLDER. Performed By: #### [id number] #### [facility],[address] [place] [address] [employer] REPORT Observed: 04/19/2018 Status: F Source: [facility] 8:12 PM [facility] CONSULTATION REPORT NAME ACCOUNT SEX AGE ADMIT DISCHARGE PT MED. NUMBER DATE DATE TYPE RECORD# SUGEY LING [id number] F 67 04/19/18 1 [id number] ROOM: [facility] DATE OF : 1950 DICTATING PHYSICIAN: Rosa Elena Gibbs DATE OF CONSULTATION: April 19, 2018 REFERRING PHYSICIAN: Dr. Will Lopez. REASON FOR CONSULTATION: Medical management after left total knee arthroplasty. HISTORY OF PRESENT ILLNESS: The patient is a pleasant 67-year-old lady with a past medical history significant for diabetes, hypertension, GERD, and osteoarthritis who underwent elective left total knee arthroplasty earlier today and the consultation was obtained for medical management. The patient has been doing fairly well since the surgery. PAST MEDICAL HISTORY: (1) Osteoarthritis. (2) History of gout. (3) Hypertension. (4) Asthma. (5) Diabetes mellitus type 2. (6) Sarcoidosis of lung in remission. (7) GERD. (8) Hypercholesterolemia. (9) Obstructive sleep apnea. (10) Spinal stenosis. (11) Vitamin D deficiency. (12) Hypertriglyceridemia. (13) Chronic kidney disease stage IV. (14) Previous history for atrial fibrillation occurred after spinal surgery and converted to sinus rhythm. (15) Obesity with a body mass index of 38.08 kg/m2. (16) Osteoporosis. PAST SURGICAL HISTORY: (1) Cholecystectomy in 2005. (2) Hysterectomy in her 30s. (3) x2. (4) Lumbar surgery twice, one time in [place] and the second time in [place]. (5) Left total knee arthroplasty on April 19, 2018. (6) Left foot reconstructive surgery. MEDICATIONS: Current medications at home (1) Advair Diskus 500/50 mcg 1 puff b.i.d. (2) Albuterol t.i.d. p.r.n. (3) Alendronate 70 mg every week. (4) Claritin 10 mg daily. (5) Cozaar 50 mg daily. (6) Januvia 50 mg daily. (7) Lasix 40 mg daily as needed. (8) Levemir 20 units subcutaneous q.h.s. (9) Maxzide 37.5/25 mg daily. (10) Mucinex ER 600 mg b.i.d. p.r.n. (11) Fish oil 1200 mg daily. (12) Pantoprazole 40 mg daily. (13) ProAir HFA 2 puffs q.4 hours p.r.n. (14) Singulair 10 mg daily. (15) Spiriva Respimat 1.25 mcg 2 puffs daily. (16) Tylenol Arthritis p.r.n. (17) Vitamin D3 2000 units daily. (18) Tramadol 50 mg b.i.d. p.r.n. ALLERGIES: The patient is allergic to Augmentin, Plaquenil, clindamycin, Bactrim, morphine, and allopurinol. Page 1 of 3 SUGEY LING A Consultation FAMILY HISTORY: Father had hypertension, colon cancer, and lung cancer. Mother had hypertension and diabetes. Sister with diabetes. Mother had peptic ulcer disease, hypercholesterolemia, and heart disease. SOCIAL HISTORY: The patient is . She has 3 children. She does not smoke. She does not drink any alcohol. REVIEW OF SYSTEMS: The patient denies any dizziness, lightheadedness, or headaches. Denies any chest pain or shortness of breath. Denies any GI or symptoms. She was having arthritic pain for which she had the left total knee arthroplasty. The rest of the review of systems were discussed with the patient and were negative. She tells me that her recent A1c was 6.6%. PHYSICAL EXAMINATION: In general, the patient is lying down in bed comfortably in no acute distress, well-developed, well-nourished. Blood pressure is 104/57, heart rate 89, respiratory rate 18, temperature 98.1, oxygen saturation 95% on 4 liters nasal cannula and 92% on CPAP of 10 when she sleeps, and admission weight is 195 pounds with a body mass index of 38.08 kg/m2. Skin is warm and dry. HEENT: Unremarkable. Neck is supple. No nodes. No masses. No JVD. No carotid bruit. No thyroid enlargement. Lungs: Symmetrical, equal lung expansion, clear to auscultation, respiratory effort normal. Heart is regular rate and rhythm. Abdomen is obese, soft, nontender. Extremities: No edema. Neurologic: The patient was alert, oriented x3. DIAGNOSTIC DATA: Laboratory data: Blood sugars have been checked with values of 141, then 159, and then 224. ASSESSMENT/RECOMMENDATION: 1. Status post left total knee arthroplasty - doing well. Managed by orthopedics. I personally instructed the patient how to use the incentive spirometer and encouraged her to use incentive spirometry every hour while she is awake. 2. Hypertension with excellent control of blood pressure. We will continue current treatment. 3. Diabetes mellitus type 2 with gradually increasing blood sugars. We will resume the patient's Levemir and monitor blood sugars and adjust the dose as needed for optimal control of blood sugar. 4. Gastroesophageal reflux disease - seems to be stable at the time of this admission. 5. Obesity with a body mass index of 38.08 kg/m2 a complicating factor. 6. Obstructive sleep apnea with significant drop of her oxygenation when she sleeps without CPAP. We will resume CPAP at 10 cm while the patient is sleeping. 7. The rest of the medical problems are stable at this time. We will monitor the patient. 8. Above was discussed with the patient in details. All of her questions were answered, and she expressed understanding of the plan of care. Dictated By: Rosa Elena Gibbs MD Page 2 of 3 SUGEY LING Consultation 04/19/18 18:23 JOB #: [id number] Transcribed By: am 04/19/18 19:01 Electronically signed by: Estella Gibbs M.D. 04/19/18 20:12 Page 3 of 3 SUGEY LING Consultation FINAL SURGICAL Observed: 04/19/2018 Status: F Source: [facility] PATHOLOGY REPORT 2:26 PM [facility] REPOSITORY . Pathology Reports Accession: Collected Date/Time: Received Date/Time: Pathologist: [id number] 04/19/2018 14:26 EDT 04/20/2018 14:26 ARTUROT MD DREW DONALDSON Final Surgical Pathology Report DIAGNOSIS: LEFT KNEE BONE -- DEGENERATIVE ARTICULAR CHANGES WITHOUT EVIDENCE OF ACUTE INFLAMMATION OR TUMOR. COMMENT: [facility]# [id number] CLINICAL INFORMATION: .BILATERAL KNEE - PRIMARY OSTEOARTHRITIS - NONSYMPTOMATIC ON LEFT Procedure: Preoperative diagnosis: Postoperative diagnosis: SPECIMEN: A JOINT, RESEC - LEFT KNEE BONE GROSS DESCRIPTION: Received in formalin labeled with the patient's name are multiple convex and concave fragmented portions of benites-yellow bone and soft tissue aggregating 8 x 8 x 3 cm. The articular surfaces are focally eburnated and the cartilage is focally nodular. The underlying bone is yellow and dense to trabecular. Human Resource Intern section(s) are submitted following decalcification in one cassette. Dictated by DALLAS VARGAS ([facility]) MICROSCOPIC DESCRIPTION: Slides reviewed. Electronically Signed by Pathology Report verified by [facility] Electronically signed by DREW DONALDSON MD Sign out Date: 04/23/2018 09:51 Performing Lab: [address] Performed By: #### SPFR #### [place] [address] OPERATIVE PROCEDURES Observed: 04/19/2018 Status: F Source: [facility] 11:21 AM [facility] OPERATIVE REPORT NAME ACCOUNT SEX AGE ADMIT DISCHARGE PT MED. RECORD# NUMBER DATE DATE TYPE SUGEY LING [id number] F 67 04/19/18 1 [id number] ROOM: [facility] DATE OF : 1950 DICTATING PHYSICIAN: Will Lopez DATE OF SURGERY: April 19, 2018 SURGEON: Will Lopez MD RIPENING ROOM ATTENDANT: Theresa Galvan PA-C; MARISOL Shirley ANESTHESIOLOGIST: Declan Mustafa CRNA ANESTHETIC: Duramorph spinal. PREOPERATIVE DIAGNOSIS: Left knee severe primary osteoarthritis. POSTOPERATIVE DIAGNOSIS: Left knee severe primary osteoarthritis. OPERATION PERFORMED: Left total knee replacement. COMPLICATIONS: ESTIMATED BLOOD LOSS: SPECIAL MEDICATIONS: Vancomycin and Ancef. INDICATIONS FOR SURGERY: The patient is a 67-year-old female with a history of severe left knee pain. She has left knee arthritis. She wished to have surgery. Appropriate informed consent was obtained and signed. She was cleared for surgery by her medical team. FINDINGS: Intraoperative findings showed severe arthritis of the left knee. She underwent a standard small incision, anterior approach to the knee followed by a cemented ConforMIS total knee replacement using the pre-made femur and tibia. On the patella, we did a 32 x 6 mm symmetric XE patellar button. Medial polyethylene was 8.1 mm thickness. Lateral polyethylene was 7.3 mm thickness. This reproduced her anatomy nicely. Clinically, the knee was stable and the patella tracked well. She underwent standard wound closure in layers. commercial loan assistant, physician marketing communications assistant was utilized throughout the entire procedure. She helped with holding of limbs and holding of retractors. She helped with exposure Page 1 of 3 SUGEY LING A Operative Report throughout. She helped with sizing, alignment and positioning of components. She helped with wound closure, bandage application and patient transfer. Without surgical physician marketing communications assistant, surgical time could have been increased, and surgical outcome could have been less optimal. DESCRIPTION OF OPERATION: The patient was taken to the OR and transferred to the OR table. Appropriate time-out was performed. Duramorph spinal had been given. Vancomycin and Ancef were given due to her history of MRSA infection. She had all of the appropriate time-outs performed. PAULIE alberto and CAPO on the nonoperative limb and a well-padded tourniquet to the left upper thigh. The left lower extremity was prepped, padded and draped in the usual sterile orthopedic fashion for the procedure. We exsanguinated the limb and applied the tourniquet to 350 mmHg. We injected the anterosuperior part of the knee with our soft tissue injection with ropivacaine, epinephrine and Duramorph. We made a longitudinal incision after the tourniquet was inflated through skin and subcutaneous tissue, bringing us down to the extensor mechanism. Medial parapatellar arthrotomy was carried out. Straw-colored joint fluid was evacuated from the knee. A sleeve of tissue was raised off the upper and medial tibia. We resected some of the infrapatellar fat pad. We resected tissue off the anterior aspect of the distal femur. We removed degenerative medial and lateral menisci and removed the ACL. The collateral ligaments were preserved. The posterior cruciate ligament was preserved. Severe arthritis was noted throughout the knee. We used the pre-made cutting blocks for the femur to perform our anterior, posterior and chamfer cuts with the help of the assistants holding the retractors and holding the components as needed. At this point, we used the pre-made tibial cutting system for the tibia using the external alignment guides and pins. Appropriate posterior slope was built in. We used 0 degrees of external rotation on the tibia. We used a 7-degree posterior slope on the tibia, matching her anatomy. The cut was carried out, and the bony fragments were removed. Bone spurs were taken off the posteromedial and posterolateral aspects of the femur. We trialed and were happy with our construct. With the trials in, we mapped out our position for the tibial alignment. We ultimately used the drill and the punch on the tibia. The patella was everted, measured and appropriate resection carried out, leaving us a 14 mm thick patella. We trialed and decided on a 32 x 6 mm patella. The drill guide was utilized. Three drill holes were placed through it. The trial was placed and removed. The wound was thoroughly irrigated, cleaned and dried. Bleeding was controlled at the back of the knee with the Bovie. We injected the back of the knee with our pain-relieving solution. Two full batches of bone cement were being mixed and prepared. All of the bony surfaces were thoroughly irrigated, cleaned and dried. The components were checked and opened. When the knee was clean and dry and the cement was at the appropriate texture, we cemented the tibia, femur and patella. Excess bone cement was removed. The knee was held in extension with inserts in while the cement hardened. While the cement was hardening, we used the remainder of our pain-relieving solution throughout the knee. Once the cement was fully hardened, the tourniquet was let down and bleeding was controlled with the Bovie. The wound edges were again thoroughly irrigated. We trialed and decided on the lateral 7.3 mm polyethylene and medial 8.1. These were actually placed after we thoroughly irrigated, cleaned and dried the knee. No undue bleeding was noted. The patella tracked nicely. Page 2 of 3 SUGEY LING A Operative Report The knee was stable. Good extension and good flexion. Wound closure was carried out in layers with #1 Vicryl about the patella, running #2 Stratafix, a deep layer of 0 Vicryl, inverted 2-0 Vicryl, skin prep, Steri-Strips, 4x4s, ABD, Kerlix, SINA wrap and PAULIE hose. The patient was awakened from her anesthetic and transferred back to her own bed in the recovery room in satisfactory condition. The plan will be telemetry overnight as recommended by the primary care/Cardiology service. We will have a hospitalist consulted. We will manage her diabetes. Vancomycin and Ancef will be used for antibiotics. We will start her on Xarelto and hopefully discharge soon. Dictated By: Wlil Lopez MD 04/19/18 08:45 JOB #: [id number] Transcribed By: shaneka 04/19/18 08:47 Electronically signed by: E-SIGN DR. WILL LOPEZ M.D. 04/19/18 11:21 Page 3 of 3 DAVE LINGH Devin Operative Report KNEE 2 VIEWS LT Observed: 04/19/2018 Status: F Source: RAJI MARTIN 10:01 AM [place] [address] Patient: SUGEY LING. Phone#: : [phone] Age: 67 Gender: F Pt. Type: In Account: [id number] Location: [id number] Ordering: WILL LOPEZ Exam Date: 04/19/2018/9:49 Family Phys: VERONICA HASSAN Charge Code: [id number] Physician: [place] Order #: [id number] DLP Dose#: PROCEDURE: X-RAY KNEE LT 2 VIEWS COMPARISON: None. INDICATIONS: Post op evalutation FINDINGS: BONES: A total knee prosthesis is present. The adjacent bony architecture is intact. SOFT TISSUES: Postsurgical soft tissue air is present. EFFUSION: None visible. OTHER: Negative. CONCLUSION: 1. Total knee prosthesis is present. Dictated by: Jennifer Yao MD on 04/19/2018 at 10:02 Approved by: Jennifer Yao MD on 04/19/2018 at 10:02 Observed: 04/19/2018 Status: F Source: RAJI MARTIN MRSA SCREEN NARES 5:45 AM [facility] MRSA SCREEN POSITIVE Methicillin resistant Staphylococcus aureus is a major cause of nosocomial and life threatning infections. MRSA infections have been associated with high rates of mortality and morbidity. This test is used for the qualitative detection of nasal colonization of methicillin resistant Staphylococcus aureus (MRSA) to aid in the prevention and control of MRSA infections in health care settings. The test is performed on anterior nares specimens from patients and healthcare workers to screen for MRSA colonization. This test is not intended to diagnose MRSA infection nor to guide or monitor treatment of infection. Performed By: #### [id number] #### [facility],[address] [address] URINE DRUG SCREEN Collected: 04/01/2018 Status: F Source: ATIF (VISTA) 1:28 PM [facility] REPOSITORY Order Comment: Comments: TRAMADOL URINE [id number] List of Drugs Taken or Suspected? UNK TYPE CODE TESTS RESULT OUT OF RANGE REFERENCE UNITS LAB L505.0075 TO BE Normal CONFIRMED Result Comment: CONFIRMATORY TESTING FOR ALL POSITIVE URINE DRUG SCREEN RESULTS WILL ONLY BE SENT OUT UPON PHYSICIAN ORDER. VISTA Urine Drug Screen methods provide only preliminary analytical test results. A more specific alternate chemical method must be used in order to obtain a confirmed analytical result. Gas chromatography/mass spectrometery (GC/MS) is the preferred confirmatory method. Clinical consideration and professional judgement should be applied to any drug of abuse test result, particularly when preliminary positive results are used. URINE TCA TESTING MUST BE ORDERED SEPARATELY. USE TEST MNEMONIC: [facility] LAB L505.5005 VISTA UDS PH 7 Normal LAB L505.5015 <1000 ng/mL AMPHETAMINES Normal NEGATIVE LAB L505.5025 < 200 ng/mL BARBITIURATES Normal NEGATIVE LAB L505.5035 < 200 ng/mL BENZODIAZIPINE Normal NEGATIVE LAB L505.5045 < 300 ng/mL COCAINE Normal NEGATIVE LAB L505.5055 < 500 ng/mL ECSTACY Normal NEGATIVE LAB L505.5065 < 300 ng/mL METHADONE Normal NEGATIVE LAB L505.5075 < 300 ng/mL OPIATES Normal NEGATIVE LAB L505.5085 < 25 ng/mL PCP Normal NEGATIVE LAB L505.5095 < 50 ng/mL THC Normal NEGATIVE Performed By: #### L505.5000 #### [facility] [address] [place], [address] MISCELLANEOUS LAB Collected: 04/01/2018 Status: F Source: ATIF PROCEDURE 1:28 PM [facility]POS[facility] Order Comment: Comments: TRAMADOL URINE [id number] Test(s) Ordered: URINE TOXICOLOGY [id number] RUN LOWEST TEST TYPE CODE TESTS RESULT OUT OF RANGE REFERENCE UNITS LAB L801.[address] [facility] LAB TEST Result Comment: [id number] 6+OXYCODONE-BUND (ng/mL) DRUG RESULT SCREEN CUTOFF ____ Amphetamines,Urine Negative ng/mL 1000 Amphetamine test includes Amphetamine and Methamphetamine. Barbiturates Negative ng/mL 200 Benzodiazepines Negative ng/mL 200 Cannabinoid Negative ng/mL 20 Cocaine (Metab) Negative ng/mL 300 Opiates Negative ng/mL 300 Opiates test includes Codeine, Morphine, Hydromorphone, Hydrocodone. Oxycodone/Oxymorphone,Urine Negative ng/mL 300 Test includes Oxydodone and Oxymorphone. TESTING PERFORMED AT [facility]. ORIGINAL REPORT ON FILE IN LAB CONTAINS ADDITIONAL TEST SITE INFORMATION. Performed By: #### L801.1541 #### [facility] [address] [place], [address] MISCELLANEOUS LAB Collected: 04/01/2018 Status: F Source: ATIF PROCEDURE 2 1:28 PM [facility]POS[facility] Order Comment: Comments: TRAMADOL URINE [id number] List Test(s) Ordered by Physician: URINE TOXICOLOGY [id number] RUN LOWEST TEST TYPE CODE TESTS RESULT OUT OF RANGE REFERENCE UNITS LAB L801.[address] [facility] LAB TEST 2 Result Comment: TEST RESULT LIMITS Tramadol Positive Cutoff = 200 Tramadol GC/MS COnf 6050 ng/mL Cutoff = 100 TESTING PERFORMED AT [facility]. ORIGINAL REPORT ON FILE IN LAB CONTAINS ADDITIONAL TEST SITE INFORMATION. Performed By: #### L801.1543 #### [facility] [address] [place], [address] MICROALB:CREAT Collected: 03/29/2018 Status: F Source: ATIF RATIO,RANDOM UR 11:14 AM [facility] REPOSITORY TYPE CODE TESTS RESULT OUT OF RANGE REFERENCE UNITS LAB L501.1200 NO RANGE EST. mg/dL Normal UR CREAT 111.00 LAB L502.0500 NO RANGE EST. mg/L Normal 6.1 MICROALBUMIN ,UR LAB L502.0600 <30 mg/g CRE mg/g CRE Normal 5.5 MALB:CREAT Performed By: #### L502.0250 #### [facility] [address] [place], [place], [address] PTHIN Collected: 03/29/2018 Status: F Source: ATIF 11:14 AM [facility] REPOSITORY TYPE CODE TESTS RESULT OUT OF RANGE REFERENCE UNITS LAB L509.1000 18.4-80.1 pg/mL Normal PTHIN 25.7 Result Comment: Please Note: PTH INTACT METHOD AND REFERENCE RANGE CHANGE Effective 11/18/2017. Performed By: #### L509.1000 #### [facility] [address] [place] [place], [address] RENAL PROFILE Collected: 03/29/2018 Status: F Source: ATIF 11:14 AM [facility] REPOSITORY TYPE CODE TESTS RESULT OUT OF RANGE REFERENCE UNITS LAB L501.0100 74-106 mg/dL High GLU 107 Result Comment: Fasting Glucose result from 100 to 125 mg/dL suggests IMPAIRED HOMEOSTASIS per A.D.A. criteria. Please note revised GLUCOSE reference range effective 2018. LAB L501.1000 7-18 mg/dL High BUN 29 LAB L501.1100 0.55-1.02 mg/dL High CREAT,SERUM 1.52 Result Comment: The validity of the calculated GFR AND GFRAA in patients over 70 years has not been determined. Clinical correlation is essential. LAB L501.1110 >60 mL/min Low EST GFR 36 Result Comment: Non- GFR Calc LAB L501.1115 >60 mL/min Low EST GFR - AA 44 Result Comment: GFR Calc LAB L501.1300 10-20 RATIO Normal BUN/CRE 19.1 LAB L501.1800 3.2-5.0 g/dL Normal ALB 3.4 LAB L501.2200 8.5-10.1 mg/dL CA Normal 9.8 LAB L501.2300 2.5-4.9 mg/dL Low PHOS 2.1 LAB L501.5300 136-145 mmol/L NA Normal 143 LAB L501.5600 3.5-5.1 mmol/L K Normal 3.9 LAB L501.5900 98-107 mmol/L CL Normal 107 LAB L501.6100 21.0-32.0 mmol/L Normal CO2 27.0 Performed By: #### L500.3600, L501.1400, L501.5200 #### [facility] [address] [place], [place], [address] URIC ACID Collected: 03/29/2018 Status: F Source: DUNSEITH 11:14 AM [facility] REPOSITORY TYPE CODE TESTS RESULT OUT OF RANGE REFERENCE UNITS LAB L501.1400 2.6-6.0 mg/dL High URIC 8.4 Result Comment: The drugs N-Acetylcysteine and Metamizole may falsely depress this assay. Performed By: #### L500.3600, L501.1400, L501.5200 #### [facility] [address] [place], [place], [address] MAGNESIUM Collected: 03/29/2018 Status: F Source: DUNSEITH 11:14 AM [facility] REPOSITORY TYPE CODE TESTS RESULT OUT OF RANGE REFERENCE UNITS LAB L501.5200 1.6-2.6 mg/dL Normal MG 1.7 Performed By: #### L500.3600, L501.1400, L501.5200 #### [facility] [address] [place], [place], [address] VITAMIN D,25 HYDROXY Collected: 03/29/2018 Status: F Source: ATIF 11:14 AM [facility] REPOSITORY TYPE CODE TESTS RESULT OUT OF RANGE REFERENCE UNITS LAB L506.1000 29.95-100.01 ng/mL Normal Vitamin D 36.6 25-OH Result Comment: Vitamin D 25(OH) Status Range Deficiency <20 ng/mL (50nmol/L) Insuffciency 20 - 30 ng/mL (50 - 75 nmol/L) Sufficiency 30 - 100 ng/mL (75 - 250 nmol/L) Toxicity >100 ng/mL (>250 nmol/L) Performed By: #### L506.1000 #### [facility] [address] [place], [place], [address] CBC-COMPLETE BLOOD CNT Collected: 03/29/2018 Status: F Source: ATIF NO DIFF 11:14 AM [facility] REPOSITORY TYPE CODE TESTS RESULT OUT OF RANGE REFERENCE UNITS LAB L100.1000 4.4-11.0 K/mm3 Normal WBC 9.7 LAB L100.1200 4.2-5.4 M/mm3 Normal RBC 4.49 LAB L100.1300 12.0-15.0 g/dl Normal HGB 13.3 LAB L100.1400 37-47 % Normal HCT 42.5 LAB L100.1500 81-99 fL Normal MCV 94.7 LAB L100.1600 27.0-32.0 pg Normal MCH 29.6 LAB L100.1700 32-36 g/gl Low MCHC 31.3 LAB L100.1810 11.6-14.6 % Normal RDW CV 14.6 LAB L100.1820 35.1-43.9 fl High RDW SD 50.1 LAB L100.1900 150-450 K/mm3 Normal PLT 258 LAB L100.2000 6.2-12.0 fl Normal MPV 9.5 Performed By: #### L100.0500 #### [facility] [address] [place], [place], [address] MODIFIED BARIUM Observed: 01/29/2018 Status: F Source: DUNSEITH SWALLOW STUDY 3:20 PM [facility] REPOSITORY [facility] Speech Pathology [address] [place] [address] Modified Barium Swallow Study MR#: [id number] Acct: [id number] Name: SUGEY LING Rep #: [id number] : 1950 67 From: Eliezer Duke M.A., [facility] PRIMARY / SECONDARY DIAGNOSIS: dysphagia (R13.10) REFERRING PHYSICIAN: Dr. Isaías Strodu MD CURRENT DIET: regular textures, thin liquids DENTITION: WFL MENTAL STATUS: WNL RESPIRATORY STATUS: O2 via room air PREVIOUS MODIFIED BARIUM SWALLOW STUDY: none REASON FOR REFERRAL: Patient is a 67 year old female referred for a modified barium swallow (MBS) study to objectively assess the Patients oropharyngeal swallow function under fluoroscopy secondary to recent recurring issues with consumption of primarily solid textures, with the Patient experiencing recent aspiration of solid textures with similar episodes occurring approximately 4 years prior all requiring bronchoscopy with bronchial lavage and foreign body removal. 04/09/2014 Patient inhaled pieces of hamburger and Armenian rice. 04/26/2014 underwent bronchoscopy with bronchial lavage and foreign body removal after aspirating rice during intake of hamburger and Armenian rice. 12/04/2017 CT/Chest revealed old granulomatous disease; no acute pulmonary abnormality; resolution of the right lower lobe infiltrate seen on the prior CT. 12/31/2017 CXR revealed cardiomegaly; pectus excavatum deformity; no acute abnormality is seen. 01/08/2018 underwent bronchoscopy with bronchial lavage and foreign body removal after aspirating rice during intake of Thai food with resulting pneumonitis of both food and emesis with bronchospasm, documentation reveals history of esophageal strictures with plans for inbound sales representative referral for possible esophageal dilatation. Patient reports additional incidences at out of state locations. Patient further reports extensive history of gastroesophageal reflux, with all items consumed during said incidences described to this clinician consisting of caffeinated beverages in addition to spicy and acidic foods. Patient further reported taking fat burners prior to initial onset of symptoms, unclear as to what exactly this is. MEDICAL HISTORY: Recurrent aspiration pneumonia, history of esophageal strictures, chronic obstructive lung disease, sarcoidosis, asthma, stage II chronic kidney disease, allergies, skin cancer of the face, obstructive sleep apnea, benign hypertension, hyperlipidemia, on home O2, type 2 diabetes mellitus. STUDY FINDINGS: Patient participated in a Modified Barium Swallow (MBS) study on 01/22/2018. Dr. Larios was the radiologist present for this evaluation. This study was recorded in the lateral view and images were sent to PACs for storage. The following consistencies were presented to this patient for analysis of oropharyngeal swallow function: thin liquids, nectar thickened liquids, pudding, and a regular textured, Nika Doone cookie. Results of the MBS are as follows: PENETRATION / ASPIRATION SCALE (COX): 1 = does not enter airway 2 = enters airway/above vocal folds/ejected 3 = enters airway/above vocal folds/not ejected 4 = enters airway/contacts vocal folds/ejected 5 = enters airway/contacts vocal folds/not ejected 6 = enters airway/below vocal folds/ejected 7 [...] the bolus, reduced cough reflex PENETRATION / ASPIRATION SCALE (SCORE) WITH VIDEOFLOROSCOPIC SCALE SCORE: Thin [...] Thin liquids via cup (single sip): 1 Pillager thickened liquids via cup (single sip): 1 Pillager thickened liquids via cup (single sip): 2 Pillager thickened liquids via cup (single sip): 1 Pudding via spoon: 1 Regular textured cookie: 1 Regular textured cookie: 1 Thin liquids via cup with 12mm tablet: 1 IMPRESSION: DIAGNOSIS: mild to moderate oropharyngeal and pharyngoesophageal dysphagia (R13.12) ORAL PHASE CHARACTERIZED BY: LABIAL SEAL: no labial escape TONGUE CONTROL DURING BOLUS MANIPULATION: intermittent posterior escape of less than half of bolus BOLUS PREPARATION / MASTICATION: timely and efficient chewing and mashing BOLUS TRANSPORT / LINGUAL MOTION: brisk tongue motion ORAL RESIDUE: trace residue lining oral structures PHARYNGEAL PHASE CHARACTERIZED BY: INITIATION OF PHARYNGEAL SWALLOW: intermittent bolus head in pyriforms at first hyoid excursion during thin liquids; bolus head in valleculae at first hyoid excursion across majority of trials SOFT PALATE ELEVATION: no bolus between soft palate and pharyngeal wall LARYNGEAL ELEVATION: partial superior movement of thyroid cartilage/partial approximation of arytenoids cartilage to epiglottic petiole ANTERIOR HYOID EXCURSION: complete anterior movement EPIGLOTTIC MOVEMENT: complete epiglottic inversion LARYNGEAL VESTIBULE CLOSURE AT HEIGHT OF SWALLOW: complete laryngeal vestibule closure with no air/contrast in laryngeal vestibule PHARYNGEAL STRIPPING WAVE: pharyngeal stripping wave present / complete PHARYNGOESOPHAGEAL SEGMENT OPENING: partial distension and partial duration; partial obstruction of flow TONGUE BASE RETRACTION: no contrast between tongue base and posterior pharyngeal wall PHARYNGEAL RESIDUE: trace residue within or on pharyngeal structures ESOPHAGEAL PHASE CHARACTERIZED BY: ESOPHAGEAL BOLUS CLEARANCE IN THE UPRIGHT POSITION: esophageal retention with retrograde flow below pharyngoesophageal segment (PES) EFFECTS OF TREATMENT STRATEGIES ATTEMPTED: Chin tuck posture = ineffective Reduced bolus size = moderately effective DIET TEXTURE RECOMMENDATIONS: Will recommend a regular textured, thin liquid diet. COMPENSATORY STRATEGIES RECOMMENDED: Reduced bolus volume, reduced rate of intake, avoid straws, seated upright at 90 degrees during PO intake, remain upright for at minimum 60 minutes post meal (GERD precaution) INTERPRETATION OF RESULTS: Patient presents with mild to moderate oropharyngeal dysphagia and pharyngoesophageal dysphagia (R13.12, R13.14). Oral phase primarily marked by suboptimal lingual control with intermittent posterior escape of less than half of bolus directly attributing to pre-prandial penetration and aspiration during thin liquid intake with chin tuck posture. Pharyngeal phase primarily marked by consistent delayed pharyngeal swallow onset timing resulting in suboptimal bolus location upon swallow onset contributing to intermittent prandial penetration without improvement appreciated from postural and texture adjustments; and partial distension and partial duration of the pharyngoesophageal segment opening with partial obstruction of flow, tough largely inconsequential. Esophageal phase marked by consistent esophageal retention within the lower 3rd of the esophagus with retrograde flow below pharyngoesophageal segment (PES), may likely be a contributing factor in regards to the Patients current complaints. Patient noted to overtly aspirate during very minimal (<5%) amount of thin liquids aspirated. Adequate ingestion of solid textures appreciated. RECOMMENDATIONS: Would recommend continued assessment of the Patients esophageal functioning, as it is outside the scope of the modified barium swallow study to objectively assess esophageal functioning, with workup currently underway via inbound sales representative. Patient able to comprehend and express recommended intake precautions detailed above with sufficient detail to suggest high likelihood of compliance. Provided brief overview of signs and symptoms of aspiration, with recommendations for the Patient to further discuss symptoms with PCP. No further skilled speech-language services warranted at this time targeting dysphagia. ADDITIONAL COMMENTS/RECOMMENDATIONS: Results and recommendations were discussed with the Patient immediately following MBS completion, with the Patient verbalizing understanding and agreement with all recommendations and education provided. IMAGE COUNT: [id number] G-CODES: SWALLOWING G8996 Current Status: CI SWALLOWING G8997 Goal Status: CI SWALLOWING G8998 Discharge Status: CI 01/29/18 1520 <Electronically signed by Eliezer Duke M.A., [facility]> Date Eliezer Duke M.A., [facility] Co-Signature Required for all Medicare patients Date/Time Co-Signature CC: SWALLOWING FUNCTION Observed: 01/29/2018 Status: F Source: DUNSEITH W/VIDEO 1:10 PM [facility] REPOSITORY [facility] Imaging Services [address] [place] [address] Swallowing Function w/Video MR#: [id number] Acct: [id number] Name: SUGEY LING Rep #: [id number] : 1950 F 67 From: Anam Larios MD PCP: Veronica Hassan DO Status: [facility] Study: Swallowing Function w/Video Date of Exam: 01/29/18 Exam# [id number] Ordering Dr: Isaías Stroud MD STUDY: SWALLOWING [...] evidence of aspiration or laryngeal penetration. Barium Pudding: There was no evidence of aspiration or laryngeal penetration. Barium Coated Cracker: There was no evidence of aspiration or laryngeal penetration. RAD/Swallowing Function w/Video IMPRESSION: Penetration with evacuation upon ingestion of thin liquids. The patient ingested a 12 mm tablet of barium without any difficulty. The swallow study findings were discussed with the patient by the speech pathologist at the conclusion of the examination. Please see speech pathology report for more information and recommendations. Electronically Signed: Anam Larios MD at 14:25 EST Tel [phone], Service support , CC: Veronica Stroud Information Technology Architect: Signed BEDSIDE GLUCOSE Collected: 01/08/2018 Status: F Source: ATIF 4:13 PM [facility] REPOSITORY TYPE CODE TESTS RESULT OUT OF REFERENCE UNITS RANGE LAB L501.080 70-110 mg/dL High BEDSIDE GLU 132 Result Comment: MANAGEMENT OF PATIENT CARE PER NURSING PROTOCOL Performed By: #### L501.080 #### [facility] Point of Care [address] [place] [address] Observed: 01/08/2018 Status: F Source: ATIF CULTURE, BRONCH 12:00 AM [facility] REPOSITORY List Antibiotics Last 48 Hours? . List Antibiotics to be Started? . Gram Stain Gram Stain No White Blood Cells No organisms seen Resp. Culture Mixed normal respiratory hermelindo. No Haemophilus, Streptococcus pneumoniae, beta-hemolytic Streptococcus or Staphylococcus aureus isolated. Performed By: #### M100.9500 #### [facility] [address] [place], [address] BMP Collected: 01/06/2018 Status: F Source: GHEENS Kenzei 2:25 PM [facility] REPOSITORY TYPE CODE TESTS RESULT OUT OF REFERENCE UNITS RANGE LAB 1547-9 80-115 mg/dL GLUCOSE High 249 LAB NA(LOINC) 136-146 mEq/L Sodium Level 136 LAB K(LOINC) 3.5-5.1 mEq/L Potassium Level 4.8 LAB CL(LOINC) 98-107 mEq/L Chloride 102 LAB CO2(LOINC) 23-31 mEq/L CO2 26 LAB EBAL(LOINC mEq/L ) Electrolyte Balance 8.0 LAB BUN(LOINC) 7.0-18.0 mg/dL BUN High 35.0 LAB CRE(LOINC) 0.6-1.2 mg/dL Creatinine High Lvl (s) 1.5 LAB BC(LOINC) 7-27 ratio BUN/Creatinine 23 Ratio LAB CA(LOINC) 8.4-10.2 mg/dL Calcium Lvl 9.6 Performed By: #### BMP, GFR, A1C, CBC, ADIFF, ANEU #### [address] [address] .GFR Collected: 01/06/2018 Status: F Source: GHEENS Kenzei 2:25 PM [facility] REPOSITORY TYPE CODE TESTS RESULT OUT OF REFERENCE UNITS RANGE LAB GFRAA(LOINC ml/min/1.73 ) sqm GFR 42 [place] Result Comment: GFR Population mean for , Non- Americans Ages 20-29 = 116 mL/min/1.73 sq.m. Ages 30-39 = 107 mL/min/1.73 sq.m. Ages 40-49 = 99 mL/min/1.73 sq.m. Ages 50-59 = 93 mL/min/1.73 sq.m. Ages 60-69 = 85 mL/min/1.73 sq.m. Ages 70+ = 75 mL/min/1.73 sq.m. Chronic Kidney Disease: Less than 60 mL/min/1.73 square meters End Stage Renal Disease: Less than 15 mL/min/1.73 square meters LAB GFRNO(LOINC) ml/min/1.73sqm GFR Non- 34 Result Comment: GFR Population mean for , Non- Americans Ages 20-29 = 116 mL/min/1.73 sq.m. Ages 30-39 = 107 mL/min/1.73 sq.m. Ages 40-49 = 99 mL/min/1.73 sq.m. Ages 50-59 = 93 mL/min/1.73 sq.m. Ages 60-69 = 85 mL/min/1.73 sq.m. Ages 70+ = 75 mL/min/1.73 sq.m. Chronic Kidney Disease: Less than 60 mL/min/1.73 square meters End Stage Renal Disease: Less than 15 mL/min/1.73 square meters Performed By: #### DEANDRE, GFR, A1C, CBC, ADIFF, ANEU #### [address] [address] A1C Collected: 01/06/2018 Status: F Source: [facility] 2:25 [facility] REPOSITORY TYPE CODE TESTS RESULT OUT OF RANGE REFERENCE UNITS LAB A1C(LOINC) 4.8-5.9 % High Hgb A1c 8.9 Performed By: #### BMP, GFR, A1C, CBC, ADIFF, ANEU #### [address] [address] CBC Collected: 01/06/2018 Status: F Source: [employer] [facility] 2:25 [facility] REPOSITORY TYPE CODE TESTS RESULT OUT OF REFERENCE UNITS RANGE LAB WBC(LOINC) 4.60-10.80 10 3/mcL High WBC 16.60 LAB RBCCT(LOINC 4.20-5.40 10 6/mcL ) RBC 4.80 LAB HGB(LOINC) 12.0-16.0 G/dL Hgb 13.8 LAB HCT(LOINC) 37.0-47.0 % Hct 43.7 LAB MCV(LOINC) 80.0-94.0 fL MCV 91.2 LAB MCH(LOINC) 27.0-31.2 pg MCH 28.7 LAB MCHC(LOINC) 33.0-37.0 G/dL Low MCHC 31.5 LAB RDW(LOINC) 11.5-14.5 % High RDW 16.1 LAB PLT(LOINC) 130-400 10 3/mcL Platelet 297 LAB MPV(LOINC) 7.4-10.4 fL MPV 8.1 Performed By: #### BMP, GFR, A1C, CBC, ADIFF, ANEU #### [place] [address] [place], [place] [address] .AUTO DIFF Collected: 01/06/2018 Status: F Source: [facility] 2:25 [facility] REPOSITORY TYPE CODE TESTS RESULT OUT OF REFERENCE UNITS RANGE LAB DALE(LOINC) 37.0-80.0 % High Neutrophil % 83.4 LAB LYM(LOINC) 10.0-50.0 % Low Lymphocyte % 7.0 LAB MON(LOINC) 1.7-13.0 % Monocyte % 8.1 LAB EO(LOINC) 0.0-7.0 % Eosinophil % 1.0 LAB BAS(LOINC) 0.0-2.5 % Basophil % 0.5 LAB ABLYM(LOIN 0.77-3.85 10 3/mcL C) Lymphocyte, 1.20 Absolute LAB GERHARD(LOINC 0.15-1.00 10 3/mcL ) High Monocyte, 1.30 Absolute LAB AEOS(LOINC 0.00-0.40 10 3/mcL ) Eosinophil, 0.20 Absolute LAB ABAS(LOINC 0.00-0.19 10 3/mcL ) Basophil, 0.10 Absolute Performed By: #### BMP, GFR, A1C, CBC, ADIFF, ANEU #### [address] [address] .NEUABS Collected: 01/06/2018 Status: F Source: [facility] 2:25 [facility] REPOSITORY TYPE CODE TESTS RESULT OUT OF REFERENCE UNITS RANGE LAB ANEU(LOINC) 2.85-6.16 10 3/mcL High Neutrophil, 13.80 Absolute Performed By: #### BMP, GFR, A1C, CBC, ADIFF, ANEU #### [place] [id number] CHEST PA AND LATERAL Observed: 12/30/2017 Status: F Source: [place] 3:29 PM [facility] REPOSITORY [facility] [place] [address] Chest PA and Lateral MR#: [id number] Acct: [id number] Name: SUGEY LING Rep #: [id number] : 1950 F 67 From: Anam Larios MD PCP: Veronica Hassan DO Status: REG CLI Study: Chest PA and Lateral Date of Exam: 12/30/17 Exam# [id number] Ordering Dr: Octavio Delgado MD STUDY: X-RAY CHEST REASON FOR EXAM: Female, 67 years old. Cough. Pneumonitis. TECHNIQUE: PA and lateral views of the chest. COMPARISON: Comparison is made with prior examination dated December 22, 2017. FINDINGS: Scattered calcified granulomas. Minimal thickening of the lateral aspect of the right minor fissure. This most likely represents scarring. There is no demonstrated pleural abnormality. There is moderate cardiac enlargement. There are calcified mediastinal and hilar lymph nodes. Normal visualized pulmonary arteries. There is atherosclerotic calcification of the aortic arch with tortuosity. There are diffuse degenerative changes of the visualized thoracic spine. Dextroscoliosis. Pectus excavatum deformity. There is no demonstrated abnormality of the visualized soft tissue structures of the upper abdomen. RAD/Chest PA and Lateral IMPRESSION: Cardiomegaly. Pectus excavatum deformity. No acute abnormality is seen. Electronically Signed: Anam Larios MD at 12:54 EST Tel [phone], Service support , CC: Veronica Hassan DO; Octavio Delgado MD Information Technology Architect: Signed Observed: 12/24/2017 Status: F Source: [place] CULTURE, SPUTUM 12:00 PM [facility] REPOSITORY PER ORDER, SPUTUM SMEAR/CULTURE FUNGAS Gram Stain Acceptable Specimen? Yes (<25 Epithelial cells per/lpf) Gram Stain 1+ White Blood Cells 1+ Epithelial cells 1+ Gram positive cocci Resp. Culture Mixed normal respiratory hermelindo. No Haemophilus, Streptococcus pneumoniae, beta-hemolytic Streptococcus or Staphylococcus aureus isolated. Performed By: #### M100.0800 #### [facility] Laboratory [facility] [place], [address] Observed: 12/24/2017 Status: F Source: [place] CULTURE, FUNGUS [id number] 12:00 PM [facility] REPOSITORY PER ORDER, SPUTUM SMEAR/CULTURE FUNGAS Cu,[id number] TESTING PERFORMED AT [facility]. ORIGINAL REPORT ON FILE IN LAB CONTAINS ADDITIONAL TEST SITE INFORMATION. CUF Positive Fungus Culture ORGANISM 1: Yana albicans Amount Growth Growth Performed By: #### M600.2000 #### [facility] [place], [place], [address] BNP,B-TYPE NATRIURETIC Collected: 12/23/2017 Status: F Source: [place] PEPTIDE 1:49 PM [facility] REPOSITORY TYPE CODE TESTS RESULT OUT OF RANGE REFERENCE UNITS LAB L503.6620 0-100 pg/mL Normal B-TYPE 41.7 EB PEP Performed By: #### L503.6620 #### [facility] [address] [place] [address], [address] CHEST PA AND LATERAL Observed: 12/22/2017 Status: F Source: [place] 2:31 PM [facility] REPOSITORY [facility] Imaging Services [address] [place] [address] Chest PA and Lateral MR#: [id number] Acct: [id number] Name: SUGEY LING Rep #: [id number] : 1950 F 67 From: Ronnie Bradford MD PCP: Veronica Hassan DO Status: REG CLI Study: Chest PA and Lateral Date of Exam: 12/22/17 Exam# [id number] Ordering Dr: Kelsea Lund MECHANICAL DETAILER-Carolyn STUDY: X-RAY CHEST REASON FOR EXAM: Female, 67 years old. Fever, cough and vomiting TECHNIQUE: AP and lateral views of the chest. COMPARISON: Chest x-ray on November 16, 2017. FINDINGS: There is a calcified granuloma in the right lung. There is pulmonary vascular congestion There is no demonstrated pleural abnormality. There is moderate cardiac enlargement. There are multiple hilar and mediastinal calcified lymph nodes. Normal visualized pulmonary arteries. Normal visualized aortic arch and descending thoracic aorta. There is thoracic dextroscoliosis Normal visualized ribs, clavicles, and shoulders. There is no demonstrated abnormality of the visualized soft tissue structures of the upper abdomen. RAD/Chest PA and Lateral IMPRESSION: Stable cardiomegaly with pulmonary vascular congestion. Old granulomatous disease Electronically Signed: Ronnie Bradford MD, FACR at 15:27 EST , Service support , CC: MECHANICAL DETAILER-C Kelsea Lund; Veronica Hassan DO Information Technology Architect: Signed BEDSIDE GLUCOSE Collected: 12/07/2017 Status: F Source: [place] 12:14 PM [facility] REPOSITORY TYPE CODE TESTS RESULT OUT OF REFERENCE UNITS RANGE LAB L501.080 70-110 mg/dL High BEDSIDE GLU 151 Result Comment: MANAGEMENT OF PATIENT CARE PER NURSING PROTOCOL Performed By: #### L501.080 #### [place] [facility] Point of Care [address] [place] [address] Observed: 12/07/2017 Status: F Source: [place] DAVID, BRONCH 12:00 AM [facility] [place] REPOSITORY List Antibiotics Last 48 Hours? . List Antibiotics to be Started? . Gram Stain Gram Stain 1+ White Blood Cells Rare Gram positive cocci in chains Rare Gram negative rods Resp. Culture ORGANISM 1: Pantoea species Amount Growth 1+ Pantoea species: REACTION Amoxacillin/Clavulanic Acid $ <=2 R Cefazolin $ <=4 R Cefepime $ <=1 S Ceftazidime *NF 16 I Ceftriaxone $ <=1 S Ciprofloxacin $ <=0.25 S Ertapenim $$$ <=0.5 S Gentamicin $ <=1 S Imipenem *NF <=0.25 S Levofloxacin $ <=0.12 S Piperacillin/Tazobactam $$ <=4 S Tobramycin $ <=1 S Trimethoprim/Sulfametho $ <=20 S (NF) indicates non-formulary drug at [facility]. Approval by Infectious Disease Specialist required before non-formulary drugs may be ordered and/or dispensed. Performed By: #### M100.9500 #### [facility], [address] CBC-COMPLETE BLOOD CNT Collected: 12/04/2017 Status: F Source: [place] NO DIFF 10:27 AM [facility] REPOSITORY TYPE CODE TESTS RESULT OUT OF RANGE REFERENCE UNITS LAB L100.1000 4.4-11.0 K/mm3 High WBC 14.0 LAB L100.1200 4.2-5.4 M/mm3 Normal RBC 4.74 LAB L100.1300 12.0-15.0 g/dl Normal HGB 14.1 LAB L100.1400 37-47 % Normal HCT 45.5 LAB L100.1500 81-99 fL Normal MCV 96.0 LAB L100.1600 27.0-32.0 pg Normal MCH 29.7 LAB L100.1700 32-36 g/gl Low MCHC 31.0 LAB L100.1810 11.6-14.6 % High RDW CV 15.0 LAB L100.1820 35.1-43.9 fl High RDW SD 52.5 LAB L100.1900 150-450 K/mm3 Normal PLT 227 LAB L100.2000 6.2-12.0 fl Normal MPV 10.0 Performed By: #### L100.0500 #### [facility] [address] [place], [place], [id number] RENAL PROFILE Collected: 12/04/2017 Status: F Source: [place] 10:27 AM [facility] REPOSITORY TYPE CODE TESTS RESULT OUT OF RANGE REFERENCE UNITS LAB L501.0100 70-110 mg/dL High GLU 230 Result Comment: Glucose result greater than or equal to 200 mg/dL suggests DIABETES MELLITUS per A.D.A. criteria. LAB L501.1000 7-18 mg/dL High BUN 26 LAB L501.1100 0.55-1.02 mg/dL High CREAT,SERUM 1.79 Result Comment: The validity of the calculated GFR AND GFRAA in patients over 70 years has not been determined. Clinical correlation is essential. LAB L501.1110 >60 mL/min Low EST GFR 30 Result Comment: Non- GFR Calc LAB L501.1115 >60 mL/min Low EST GFR - AA 36 Result Comment: GFR Calc LAB L501.1300 10-20 RATIO Normal BUN/CRE 14.5 LAB L501.1800 3.4-5.0 g/dL Normal ALB 3.5 Result Comment: Please note revised Albumin AND Globulin reference range effective 2017. LAB L501.2200 8.5-10.1 mg/dL Normal CA 8.8 LAB L501.2300 2.5-4.9 mg/dL Low PHOS 1.8 LAB L501.5300 136-145 mmol/L Normal NA 140 LAB L501.5600 3.5-5.1 mmol/L Normal K 3.9 LAB L501.5900 98-107 mmol/L Normal CL 105 LAB L501.6100 21.0-32.0 mmol/L Normal CO2 24.0 Performed By: #### L500.3600, L501.1400, L501.5200 #### [facility] [address] [place], [place], [address] URIC ACID Collected: 12/04/2017 Status: F Source: [place] 10:27 AM [facility] REPOSITORY TYPE CODE TESTS RESULT OUT OF RANGE REFERENCE UNITS LAB L501.1400 2.6-6.0 mg/dL High URIC 9.0 Result Comment: The drugs N-Acetylcysteine and Metamizole may falsely depress this assay. Performed By: #### L500.3600, L501.1400, L501.5200 #### [facility] [address] [place], [address] MAGNESIUM Collected: 12/04/2017 Status: F Source: [place] 10:27 AM [facility] REPOSITORY TYPE CODE TESTS RESULT OUT OF RANGE REFERENCE UNITS LAB L501.5200 1.8-2.4 mg/dL Normal MG 1.9 Performed By: #### L500.3600, L501.1400, L501.5200 #### [facility] [address] [place], [address] HEMOGLOBIN A1C Collected: 12/04/2017 Status: F Source: [place] 10:27 AM [facility] REPOSITORY TYPE CODE TESTS RESULT OUT OF RANGE REFERENCE UNITS LAB L501.9985 4.2-6.3 % High HGB A1C 7.9 Performed By: #### L501.9985 #### [facility] [address] [place], [address] VITAMIN D,25 HYDROXY Collected: 12/04/2017 Status: F Source: [place] 10:27 AM [facility] REPOSITORY TYPE CODE TESTS RESULT OUT OF RANGE REFERENCE UNITS LAB L506.1000 ng/mL Normal Vitamin D 34.1 25-OH Result Comment: Vitamin D 25(OH) Status Range Deficiency <20 ng/mL (50nmol/L) Insuffciency 20 - 30 ng/mL (50 - 75 nmol/L) Sufficiency 30 - 100 ng/mL (75 - 250 nmol/L) Toxicity >100 ng/mL (>250 nmol/L) Performed By: #### L506.1000 #### [facility] [address] [place], [address] MICROALB:CREAT Collected: 12/04/2017 Status: F Source: [place] RATIO,RANDOM UR 10:27 AM [facility] REPOSITORY TYPE CODE TESTS RESULT OUT OF RANGE REFERENCE UNITS LAB L501.1200 NO RANGE EST. mg/dL Normal UR CREAT 92.40 LAB L502.0500 NO RANGE EST. mg/L Normal 11.1 MICROALBUMIN ,UR LAB L502.0600 <30 mg/g CRE mg/g CRE Normal 12.0 MALB:CREAT Performed By: #### L502.0250 #### [facility] [address] [place], [address] PTHIN Collected: 12/04/2017 Status: F Source: [place] 10:27 AM [facility] REPOSITORY TYPE CODE TESTS RESULT OUT OF RANGE REFERENCE UNITS LAB L509.1000 18.4-80.1 pg/mL High PTHIN 83.3 Result Comment: Please Note: PTH INTACT METHOD AND REFERENCE RANGE CHANGE Effective 11/18/2017. Performed By: #### L509.1000 #### [facility] [address] [place], [address] CHEST WITHOUT Observed: 12/04/2017 Status: F Source: [place] CONTRAST 8:53 AM [facility] REPOSITORY [facility] Imaging Services [address] [address] Chest without Contrast MR#: [id number] Acct: [id number] Name: SUGEY LING Rep #: [id number] : 1950 F 67 From: Rogelio Alston DO PCP: Veronica Hassan DO Status: REG CLI Study: Chest without Contrast Date of Exam: 12/04/17 Exam# [id number] Ordering Dr: Octvaio Delgado MD STUDY: CT CHEST WITHOUT CONTRAST REASON FOR EXAM: Female, 67 years old. Aspiration pneumonitis. COPD. Sarcoidosis. Asthma. RADIATION DOSAGE (If Supplied By Facility): CTDIvol = ( 20.15 ) mGy, DLP = ( 694.78 ) mGycm TECHNIQUE: Transaxial imaging was performed without the administration of intravenous contrast material. 1 Individualized dose optimization techniques were used for this CT. COMPARISON: Chest, November 16, 2017. CT of the chest, May 13, 2016. FINDINGS: There is minimal bibasilar apical scarring there is a 4 mm calcified granuloma posteriorly in the right lung apex. There is linear scarring in both lungs without focal soft tissue mass or infiltrate. There is a second 5 mm calcified granuloma is seen peripherally in the right lower lobe on image 68 of series 4. There is no demonstrated pleural abnormality. Normal heart and pericardium. There are calcifications of the coronary arteries. There are diffuse calcified lymph nodes throughout the mediastinum. Calcified lymph nodes are seen in both arthur. Normal unenhanced pulmonary arteries. There is atherosclerotic calcification of the aortic arch with tortuosity and elongation of the aortic arch and descending thoracic aorta. There are multi-level degenerative changes [...] Rogelio [place] DO at 13:14 EST Tel [phone], Service support , CC: Veronica Hassan DO; Octavio Delgado MD Information Technology Architect: Signed XR CHEST 2 VIEWS Observed: 11/20/2017 Status: F Source: [facility] 2:53 PM [facility] REPOSITORY ORIGINAL XR CHEST 2 VIEWS CLINICAL STATEMENT: SOB with h/o aspiration. COMPARISON: CT angiogram, 02/12/2012 FINDINGS: Cardiomegaly and atherosclerosis noted. Calcified granulomas noted in the mediastinum. There are calcified lung nodules which are likely granulomas. No consolidation visualized. No pleural fluid. Degene rative changes seen in the spine. IMPRESSION: Granulomatous disease. No acute radiographic findings Interpreted By: Epi Dominguez MD Preliminary Report By: Epi Dominguez MD Electronically Signed By: Epi Dominguez MD Dictated Date: 11/20/2017 2:58:02 PM Prelim Date: 11/20/2017 2:58:02 PM Sign Date: 11/20/2017 3:00:24 PM EMERGENCY DEPARTMENT Observed: 11/17/2017 Status: F Source: [place] SUMMARY 12:54 AM [facility] REPOSITORY [facility] Medical Records Department [address] [place] [place] [address] Emergency Department Summary 11/16/17 1811 MR#: [id number] Acct: [id number] Name: SUGEY LING Rep #: [id number] : 1950 66 From: Lobito Lee MD PCP: Veronica Hassan DO Status: DEP ER - ER Visit Summary Date of Service: 11/16/17 Chief Complaint: Shortness of breath History of Present Illness: The patient is [...] of breath. She states that she is having a cough that is nonproductive and feels that she cannot get anything up. Patient does have an underlying history of asthma and COPD is not typically on oxygen. Patient states that she used her rescue inhaler at home this did not seem to alleviate the symptoms. Patient is able to tolerate secretions, and swallow liquids. Review of systems otherwise negative. Physical Examination: Vital signs within normal limits. Well- nourished female no acute distress. Moist mucous membranes oropharynx is clear and easily visible without any evidence of foreign material. Heart regular rate and rhythm. Lungs sounds showed evidence of rhonchi in the bilateral lung marie, with no evidence of respiratory distress or retractions. Abdomen was soft and nontender. Remainder physical otherwise unremarkable. Test Results: Chest x-ray shows chronic changes Emergency Department Course and Treatment: Patient presented for evaluation due to concern for possible aspiration event. She was given an albuterol breathing treatment. Patient's chest x-ray does not [...] on a prednisone taper and sees a quality assurance intern. I believe that she should continue her prednisone taper, increase the frequency at which she is using her nebulizer, and follow-up with pulmonology. Patient states that in the past she has required bronchoscopy and had removal of a food foreign body in her airway however at this point I do not believe that requires emergent admission or pulmonary consultation but rather she can do this as an outpatient. Patient was understanding of this. She understands signs and symptoms for which to return. Disposition: Discharge Impression: 1. Aspiration event This note was generated with [employer] dictation software. It may contain incorrect words, spelling, and punctuation that were not noted in review of the chart prior to signing ED Disposition - Plan for ED Patient: Disposition: Home or Assisted Living Chief Complaint: Shortness of Breath Diagnosis: Aspiration into airway Instructions: Dysphagia: Exercises, ED Choking Spell Referrals: Veronica Hassan DO [Primary Care Provider] - 5-7 Days What to do if you have Problems For any increased pain, shortness of breath, bleeding, nausea or vomiting, chest pain, or any unexpected problems, contact your Primary Care Provider. Call [facility] ([phone]) or report to the closest Emergency Room. Call 911 if necessary. 11/17/17 0054 <Electronically signed by Lobito Lee MD> Date Lobito Lee MD Cosigner Signature (If Indicated): Date CC: Veronica Hassan DO CHEST PA AND LATERAL Observed: 11/16/2017 Status: F Source: [place] 5:25 PM [facility] REPOSITORY [facility] Imaging Services [facility] [place] [address] Chest PA and Lateral MR#: [id number] Acct: [id number] Name: SUGEY LING Rep #: [id number] : 1950 F 66 From: Ivone Guevara MD PCP: Veronica Hassan DO Status: REG ER Study: Chest PA and Lateral Date of Exam: 11/16/17 Exam# [id number] Ordering Dr: Lobito Lee MD STUDY: X-RAY CHEST REASON FOR EXAM: Female, 66 years old. Shortness of breath TECHNIQUE: PA and lateral views of the chest. COMPARISON: October 09, 2017 chest x-ray FINDINGS: There are chronic appearing lung markings without evidence of acute focal consolidation. There is no demonstrated pleural abnormality. There is borderline cardiomegaly. There are calcified mediastinal lymph nodes. Normal visualized pulmonary arteries. Normal visualized aortic arch and descending thoracic aorta. Dextroscoliosis and multilevel degenerative disc disease. Normal visualized ribs, clavicles, and shoulders. There is no demonstrated abnormality of the visualized soft tissue structures of the upper abdomen. RAD/Chest PA and Lateral IMPRESSION: Tonic appearing lung markings no evidence of acute focal infiltrate. Electronically Signed: Ivone Guevara MD at 17:48 EST Tel , Service support , CC: Veronica Hassan DO; Lobito Lee Information Technology Architect: Signed ALLERGIES ALLERGIES DATE TYPE / CODE NAME / CODE REACTION SEVERITY SOURCE 05/11/20 Drug amoxicillin Nausea Unknown [place] 18 Allergy/[id number] trihydrate/[id number]( [facility] (SNOMED CT) RXNORM) Hospital Repository 05/11/20 Drug potassium Nausea Unknown [place] 18 Allergy/586428311 clavulanate/[id number] [facility] (SNOMED CT) (RXNORM) Hospital Repository 05/11/20 Drug morphine/S472308430(RX Rash Unknown [place] 18 Allergy/216019169 NORM) [facility] ([facility] CT) Hospital Repository 05/11/20 Drug clindamycin/Z509320463 Rash Unknown [place] 18 Allergy/818390710 (RXNORM) [facility] ([facility] CT) Hospital Repository 05/11/20 Drug ciprofloxacin/M9587003 Upset CT [place] 18 Allergy/588484041 82(RXNORM) Stomach [facility] (SNOMED CT) Hospital Repository 05/20/20 DRUG/211769009(SN AMOXICILLIN-POT [place] [address]) CLAVULANATE Three Repository 05/20/20 DRUG CLINDAMYCIN [place] [address] INGREDI/081316967 Three (SNOMED CT) Repository 05/20/20 DRUG MORPHINE [place] [address] INGREDI/257014239 Three (SNOMED CT) Repository 05/20/20 DRUG HYDROXYCHLOROQUINE [place] [address] INGREDI/724618351 Three (SNOMED CT) Repository Drug CLINDAMYCIN/18008357(R U [place] Allergy/829428252 XNORM) [facility] (SNOMED CT) [facility] Repository Drug ALLOPURINOL/02160713(R U [place] Allergy/359895278 XNORM) [facility] (SNOMED CT) [facility] Repository Drug MORPHINE/23777148(RXNO U [place] Allergy/348208595 RM) [facility] (SNOMED CT) [facility] Repository Drug AUGMENTIN/78211485(RXN RASH U [place] Allergy/514218240 ORM) [facility] (SNOMED CT) [facility] Repository Drug BACTRIM/30068586(RXNOR U [place] Allergy/378143825 M) [facility] (SNOMED CT) [facility] Repository Drug PLAQUENIL/82007831(RXN U [place] Allergy/727349603 ORM) [facility] (SNOMED CT) [facility] Repository Environmental 04/19/18 (+) MRSA U [place] Allergy/640172987 SCREEN [facility] (SNOMED CT) [facility] Repository ENCOUNTERS ENCOUNTERS ADMIT/DISCHARGE ACCOUNT NUMBER ADMITTING ENCOUNTER LOCATION SOURCE CLASS 11/11/2018 [id number] [facility] ding:LABSPEC Repository 11/08/2018 [id number] Ambulatory Building:[facility] Pract[facility] Repository 10/26/2018 [id number] [facility] ding:RAD Repository 10/04/2018 [id number] [facility] ding:MTLAB Repository 09/16/2018/09/16/20 [id number] LUANA HER Ambulatory Raji [place] 18 DPM [facility] Repository 07/19/2018/07/20/20 [id number] JESSICA, Inpatient Buildin [address] Encounter Room: [address] [place] [address] Repository 07/07/2018/07/07/20 [id number] JESSICA, Ambulatory Raji [place] [facility] Repository 06/03/2018/06/03/20 [id number] LOPEZ, Ambulatory Raji [place] 18 WILL [facility] Repository 05/20/2018 [id number] Ambulatory [facility] ding:OPBI Repository 05/11/2018/05/11/20 [id number] Ambulatory BMSBuilding: [address] Repository 05/10/2018 [id number] Ambulatory [facility] ding:HHLAB Repository 04/22/2018/04/29/20 [id number] Ambulatory [address] ding:HHLAB Repository 04/19/2018/04/20/20 [id number] JESSICA, Inpatient Buildin Raji [address] Encounter Room: [address] [place] [address] Repository 04/07/2018/04/07/20 [id number] AUBURN, Ambulatory Raji [address] Repository 04/01/2018 [id number] Ambulatory [facility] ding:LAB Repository 03/29/2018 [id number] Ambulatory [facility] ding:MTLAB Repository 01/29/2018 [id number] Ambulatory [facility] ding:RAD Repository 01/13/2018/01/13/20 [id number] Ambulatory Building:[address] Repository 01/08/2018/01/08/20 [id number] Ambulatory [address] ding:EN Repository 01/06/2018/01/06/20 [id number] Ambulatory [address] ding:OPRS [facility] Repository 12/30/2017 [id number] Ambulatory [facility] ding:HPRAD Repository 12/24/2017 [id number] Ambulatory [facility] ding:LABSPEC Repository 12/23/2017 [id number] Ambulatory [facility] ding:MTLAB Repository 12/23/2017 [id number] Ambulatory [facility] ding:LAB.FUT Repository URE 12/22/2017 [id number] Ambulatory [facility] ding:HPRAD Repository 12/08/2017 [id number] Ambulatory BMSBuilding: [place] BMS.[facility] Repository 12/07/2017/12/07/19 [id number] Ambulatory [place] ding:EN Repository 12/04/2017 [id number] [facility] ding:MTLAB Repository 12/04/2017 [id number] [facility] ding:CT Repository 11/20/2017/11/20/20 [id number] Emergency ABuilding:ER [address] Repository 11/16/2017/11/16/20 [id number] Emergency [address] ding:ED Repository PAYERS PAYERS ENCOUNTER GUARANTOR PAYER SUBSCRIBER SOURCE 11/11/2018 SUGEY [id number] Primary SUGEY Beltran SMAILDOB: [place] ST[place] Insurance:MEDICARE [id number] A BPolicy Number: [facility] [id number]: (709) [id number] Repository [phone] () Date:2018-11-11 11/11/2018 Secondary CORNELIA Mishra Atif Insurance:WPS SMAILDOB: [facility] Number: [id number] Hospital [id number] Repository Date:9356-42-44ZY [address] [place] [address]UD: 11/11/2018 Tertiary NOT GIVENUNK Atif Insurance:SELF PAY [facility] Number: Effective Repository Date:2018-11-11 11/08/2018 Sugey Beltran Primary [facility] Insurance:MedicarePoli [id number] Repository cy Number: [id number] [address] Stibbs DB50Iqpbgyved [place], [place] Date:6998-07-81Wvdm 59563Btd: [phone]: (902) Name:MECHANICAL ORDNANCE ASSEMBLER [phone] () [phone] 525[address]Fpmiy[place], [place] (HP)Tel: [phone]: () [phone] 11/08/2018 Secondary Sugey A SmailDOB: [place]IP Practices Insurance: FOR [id number] Repository LIFE, WPS/MCARE [place] Number: [id number]: [phone] [id number] [phone] () Date:4369-36-32Pksj Name:[id number] [id number]: 10/26/2018 SUGEY [id number] Primary SUGEY A SMAILDOB: Atif [place] Insurance:MEDICARE [id number] PART A BPolicy Number: Hospital [id number]: (129) [id number] Repository [phone] () Date:2018-10-26 10/26/2018 Secondary CORNELIA Mishra Atif Insurance:WPS SMAILDOB: [facility] FOR LIFEPoly Number: [id number] Hospital [id number] Repository Date:3413-42-36[address] [address]QQ: 10/26/2018 Tertiary NOT GIVENUNK Atif Insurance:SELF PAY [facility] Number: Effective Repository Date:2018-10-26 10/04/2018 SUGEY A [id number] Primary SUGEY A SMAILDOB: [place] STIBBS Insurance:MEDICARE [id number] [place] PART A BPolicy Number: Hospital [id number]: (990) [id number] Repository [phone] () Date:2018-10-04 10/04/2018 Secondary CORNELIA Tad Atif Insurance:WPS SMAILDOB: [facility] Number: [id number] Hospital [id number] Repository Date:8833-76-11HM PEMA [place]ERSON [address]AL: 10/04/2018 Tertiary NOT GIVENUNK Atif Insurance:SELF PAY [facility] Number: Effective Repository Date:2018-10-04 09/16/2018 SUGEY A Primary Insurance:500 SUGEY A SMAILDOB: Raji Pomerene SMAILDOB: MEDICARE [id number] [facility] [place] Number: [address], Repository [place], [place] [id number] [place] [id number] [phone]: (330) Date:Plan Name: [phone] () 09/16/2018 Secondary CORNELIA Martin Insurance: FOR SMAILDOB: [facility] [id number] Hospital Number: BOX Repository [id number] [address], Date:Plan Name:[facility] [phone] 07/19/2018 SUGEY A Primary SUGEY A SMAILDOB: Raji Pomerene SMAILDOB: Insurance:MEDICARE [id number] [facility] STIBBS Number: [address], Repository [place], [place] [id number] [place] [id number] [phone]: (330) Date:Plan Name: [phone] () 07/19/2018 Secondary CORNELIA Martin Insurance: FOR SMAILDOB: [facility] [id number] Hospital Number: BOX Repository [id number] [address], Date: [place] [phone] 07/07/2018 SUGEY A Primary Insurance:500 SUGEY A SMAILDOB: Raji Pomerene SMAILDOB: MEDICARE [id number] [facility] Number: ATIF Ak Repository [place], [place] [id number] [phone]: (330) Date:Plan Name: [phone] () 07/07/2018 Secondary CORNELIA Martin Insurance: FOR SMAILDOB: [facility] [id number] Hospital Number: BOX Repository [id number] [facility] Date: [place] [phone] 06/03/2018 SUGEY A Primary Insurance:[facility] SUGEY A SMAILDOB: Raji Pomerene SMAILDOB: MEDICARE [id number] [facility] Number: DOROTHY Ak Repository [facility] CENTERPRAMODBethlehem[place] [id number] [phone]: ([phone]) Date:Plan Name: [phone] () 06/03/2018 Secondary CORNELIA Martin Insurance: FOR SMAILDOB: [facility] [id number] Hospital Number: BOX Repository [id number] [facility], Date: [place] [phone] 05/20/2018 SUGEY Devin [id number] Primary SUGEY A SMAILDOB: Atif [place] Insurance:MEDICARE [id number] PART A BPolicy Number: [facility] 617[address]Uhy: 330 [id number] Repository [phone] () Date:2018-04-09 05/20/2018 Secondary CORNELIA Mishra [place] Insurance:WPS SMAILDOB: [facility] Number: [id number] Hospital [id number] Repository Date:9236-03-65ZT HARLAN 78NakiaPEMA PATINO [address]ZK: 05/20/2018 Tertiary NOT GIVENUNK [place] Insurance:SELF PAY [facility] Number: Effective Repository Date:2018-04-09 05/11/2018 SUGEY Devin [id number] Primary SUGEY A SMAILDOB: [place] Insurance:MEDICARE [id number] PART A BPolicy Number: Hospital [id number]: 330 [id number] Repository [phone] () Date:2018-03-05 05/11/2018 Secondary CORNELIA K [place] Insurance:WPS SMAILDOB: Community FOR LIFEPolicy Number: [id number] Hospital [id number] Repository Date:6329-63-50BL [address], [place] [address]GM: 05/11/2018 Tertiary NOT GIVENUNK [place] Insurance:SELF PAY Community [facility]Policy Hospital Number: Effective Repository Date:2018-05-11 05/10/2018 SUGEY Beltran [id number] Primary SUGEY A SMAILDOB: Atif [place] Insurance:MEDICARE [id number] [place] PART A BPolicy Number: Hospital [address]Lbp: 330 [id number] Repository [phone] () Date:2018-04-22 05/10/2018 Secondary CORNELIA K [place] Insurance:WPS SMAILDOB: Community FOR LIFEPolicy Number: [id number] Hospital [id number] Repository Date:3853-37-00YH [address], [place] [address]SC: 05/10/2018 Tertiary NOT GIVENUNK Atif Insurance:SELF PAY Community INSURANCEPoly Hospital Number: Effective Repository Date:2018-04-30 04/22/2018 SUGEY A [id number] Primary SUGEY A SMAILDOB: [place] Insurance:MEDICARE [id number] [place] PART A BPolicy Number: Hospital [id number]: 330 [id number] Repository [phone] () Date:2018-04-22 04/22/2018 Secondary CORNELIA K Atif Insurance:WPS SMAILDOB: Community FOR LIFEPolicy Number: [id number] Hospital [id number] Repository Date:9579-30-31UN [address] [place] [address]RR: 04/22/2018 Tertiary NOT GIVENUNK [place] Insurance:SELF PAY [facility] Number: Effective Repository Date:2018-04-22 04/19/2018 SUGEY A Primary SUGEY A SMAILDOB: Raji Pomerene SMAILDOB: Insurance:MEDICARE [id number] [facility] Number: DOROTHY Ak Repository [place], [place] [id number] [phone]: (330) Date:Plan Name: [phone] () 04/19/2018 Secondary CORNELIA Martin Insurance: FOR SMAILDOB: [facility] [id number] Hospital Number: BOX Repository [id number] [facility], Date:Plan Name:[facility] [phone] 04/07/2018 SUGEY A Primary Insurance:500 SUGEY A SMAILDOB: Raji Pomerene SMAILDOB: MEDICARE [id number] [facility] Number: ATIF Ak Repository [place], [place] [id number] [phone]: (330) Date:Plan Name: [phone] () 04/07/2018 Secondary CORNELIA Martin Insurance: FOR SMAILDOB: [facility] [id number] Hospital Number: BOX Repository [id number] [address], Date: [place] [phone] 04/01/2018 SUGEY A [id number] Primary SUGEY A SMAILDOB: [place] [facility] Insurance:MEDICARE [id number] PART A BPolicy Number: [facility] 42[address]Uns: 330 [id number] Repository [phone] () Date:2018-04-01 04/01/2018 Secondary CORNELIA Srivastava Insurance:WPS SMAILDOB: [facility] Number: [id number] Hospital [id number] Repository Date:1516-45-26UK [address]NP[place] [address]HL: 04/01/2018 Tertiary NOT GIVENUNK [place] Insurance:SELF PAY Community [facility] Number: Effective Repository Date:2018-04-01 03/29/2018 SUGEY A [id number] Primary SUGEY A SMAILDOB: [place] Insurance:MEDICARE [id number] [place] PART A BPolicy Number: Hospital 47299Mzq: (851) [id number] Repository [phone] () Date:2018-03-29 03/29/2018 Secondary CORNELIA K Atif Insurance:WPS SMAILDOB: Community FOR LIFEPolicy Number: [id number] Hospital [id number] Repository Date:9734-74-00SS [address], [place] [address]OX: 03/29/2018 Tertiary NOT GIVENUNK Atif Insurance:SELF PAY [facility] Number: Effective Repository Date:2018-03-29 01/29/2018 SUGEY A [id number] Primary SUGEY A SMAILDOB: Atif [place] Insurance:MEDICARE [id number] [place] PART A BPolicy Number: Hospital 28621Tal: (861) [id number] Repository [phone] () Date:2018-01-19 01/29/2018 Secondary CORNELIA K Atif Insurance:WPS SMAILDOB: Community FOR LIFEPolicy Number: [id number] Hospital [id number] Repository Date:0032-70-46AG [address]BIOP[place], [place] [address]JN: 01/29/2018 Tertiary NOT GIVENUNK [place] Insurance:SELF PAY [facility] Number: Effective Repository Date:2018-01-19 01/13/2018 SUGEY A Primary SUGEY A SMAILDOB: [facility] SMAILDOB: Insurance:MEDICAREPoli [id number] Three Repository cy Number: STIBBS STIBBS [id number] [place], [place] Date:9211-87-37FFZ J15 24993Tar: 999) [phone]: (999) PART A CLAIMSPO [phone] (HP) [phone] (HP) [address]BSMAUR[place], [place] [address]GL: 01/13/2018 Secondary SUGEY A SMAILDOB: [facility] Insurance:VAPolicy [id number] Three Repository Number: STIBBS [id number] [place], [place] Date:2336-51-34HC [address]Wjt: ([phone]) 7810WADIMINERVA [place] [phone] (HP) [address]XO: 01/08/2018 SUGEY Devin [id number] Primary SUGEY A SMAILDOB: [place] Insurance:MEDICARE [id number] [place] PART A BPolicy Number: Hospital 44859Pjd: (804) [id number] Repository [phone] (HP) Date:2018-01-07 01/08/2018 Secondary CORNELIA Mishra Atif Insurance:WPS SMAILDOB: [facility] Number: [id number] Hospital [id number] Repository Date:4698-87-37CT [address], [place] [address]XQ: 01/08/2018 Tertiary NOT GIVENUNK [place] Insurance:SELF PAY [facility] Number: Effective Repository Date:2018-01-07 01/06/2018 SUGEY A Primary SUGEY A SMAILDOB: [facility] SMAILDOB: Insurance:MEDICARE [id number] [facility] PART BPolicy Number: STIBBS Repository STIBBS [id number] [place], [place] Date:2017-11-04 - [address]Rod: [phone]~[id number] 7058-04-73Ecje [phone] @PETER B[facility] BRIGHAM HOSPITALIshaTHE REHABILITATION INSTITUTE OF ST. LOUISel: Name:[facility] (HP)Tel: (000) [facility] 000-0000 (WP) (HP)Tel: (000) [address]Aabjzzlox, [place] 000-0000 (WP) [address]66[address]QS: 01/06/2018 Secondary CORNELIA Mishra [facility] Insurance: FOR SMAILDOB: [facility] LIFEPolicy Number: [id number] Repository [id number] STIB[place] Date:2017-11-04 [place], [place] 0345-91-91Visu [address]Mxm: (135) Name:[facility] Harlan [phone] [place] ()Tel: [phone]: (WP) [phone] 12/30/2017 SUGEY A [id number] Primary SUGEY A SMAILDOB: Atif [place] Insurance:MEDICARE [id number] [place] PART A BPolicy Number: Hospital [id number]: 330 [id number] Repository [phone] () Date:2017-12-30 12/30/2017 Secondary CORNELIA Mishra [place] Insurance:WPS SMAILDOB: [facility] Number: [id number] Hospital [id number] Repository Date:3578-18-03IG [address] [place] [address]UQ: 12/30/2017 Tertiary NOT GIVENUNK [place] Insurance:SELF PAY [facility] Number: Effective Repository Date:2017-12-30 12/24/2017 SUGEY A [id number] Primary SUGEY A SMAILDOB: Atif [place] Insurance:MEDICARE [id number] [place] PART A BPolicy Number: Hospital [id number]: 330 [id number] Repository [phone] () Date:2017-12-24 12/24/2017 Secondary CORNELIA Mishra [place] Insurance:WPS SMAILDOB: Community FOR LIFEPolicy Number: [id number] Hospital [id number] Repository Date:7018-42-49LG [address]NPORT[place], [place] [address]YL: 12/24/2017 Tertiary NOT GIVENUNK [place] Insurance:SELF PAY Community INS[facility]Policy Hospital Number: Effective Repository Date:2017-12-24 12/23/2017 SUGEY Beltran [id number] Primary SUGEY A SMAILDOB: [place] Insurance:MEDICARE [id number] [place] PART A BPolicy Number: Hospital 09509Jlv: (474) [id number] Repository [phone] () Date:2017-12-23 12/23/2017 Secondary SUGEY Beltran SMAILDOB: [place] Insurance:WPS [id number] LIFEPolicy Number: Hospital [id number] Repository Date:0683-08-81OH [address], [place] [address]UD: 12/23/2017 Tertiary NOT GIVENUNK [place] Insurance:SELF PAY Community [facility] Number: Effective Repository Date:2017-12-23 12/23/2017 SUGEY Beltran [id number] Primary SUGEY Beltran SMAILDOB: Atif [place] Insurance:MEDICARE [id number] [place] PART A BPolicy Number: Hospital 57[address]Ahy: (634) [id number] Repository [phone] () Date:2017-12-23 12/23/2017 Secondary CORNELIA K [place] Insurance:WPS SMAILDOB: Community FOR LIFEPolicy Number: [id number] Hospital [id number] Repository Date:5191-65-99TU [address], [place] [address]QA: 12/23/2017 Tertiary NOT GIVENUNK [place] Insurance:SELF PAY Community [facility] Hospital Number: Effective Repository Date:2017-12-24 12/22/2017 SUGEY Beltran [id number] Primary SUGEY A SMAILDOB: [place] Insurance:MEDICARE [id number] [place] PART A BPolicy Number: Hospital [id number]: 330 [id number] Repository [phone] () Date:2017-12-22 12/22/2017 Secondary CORNELIA K Atif Insurance:WPS SMAILDOB: Community FOR LIFEPolicy Number: [id number] Hospital [id number] Repository Date:8134-82-51AF [address], [place] [address]JH: 12/22/2017 Tertiary NOT GIVENUNK Atif Insurance:SELF PAY Community [facility] Hospital Number: Effective Repository Date:2017-12-22 12/08/2017 Sugey Beltran [id number] Primary Sugey A SmailDOB: Atif [place] Insurance:MEDICARE [id number], [place] PART A BPolicy Number: Hospital [address]38[address]Qii: 330 [id number] Repository [phone] () Date:2017-10-31 12/08/2017 Secondary CORNELIA Mishra [place] Insurance:WPS SMAILDOB: Community FOR LIFEPolicy Number: [id number] Hospital [id number] Repository Date:0004-21-59ZN [address], [place] [address]LX: 12/08/2017 Tertiary NOT GIVENUNK Atif Insurance:SELF PAY Community INS[facility]Policy Hospital Number: Effective Repository Date:2017-10-31 12/07/2017 SUGEY A [id number] Primary SUGEY A SMAILDOB: [place] Insurance:MEDICARE [id number] PART A BPolicy Number: Hospital 10558Ilz: (531) [id number] Repository [phone] () Date:2017-12-04 12/07/2017 Secondary SUGEY A SMAILDOB: [place] Insurance:WPS [id number] Community FOR LIFEPolicy Number: Hospital [id number] Repository Date:5947-17-19YW [address], [place] [address]PW: 12/07/2017 Tertiary NOT GIVENUNK [place] Insurance:SELF PAY [facility] Number: Effective Repository Date:2017-12-04 12/04/2017 Sugey Beltran [id number] Primary Usgey A SmailDOB: [place] Insurance:MEDICARE [id number] [place] PART A BPolicy Number: Hospital [id number]: 330 [id number] Repository [phone] () Date:2017-12-04 12/04/2017 Secondary CORNELIA K [place] Insurance:WPS SMAILDOB: Community FOR LIFEPolicy Number: [id number] Hospital [id number] Repository Date:7979-84-75WM [address], [place] [address]YW: 12/04/2017 Tertiary NOT GIVENUNK Atif Insurance:SELF PAY [facility] Number: Effective Repository Date:2017-12-04 12/04/2017 Sugey Beltran [id number] Primary Sugey Beltran SmailDOB: [place] Insurance:MEDICARE [id number] PART A BPolicy Number: Hospital [id number]: 330 [id number] Repository [phone] () Date:2017-12-03 12/04/2017 Secondary CORNELIA K [place] Insurance:WPS SMAILDOB: Community FOR LIFEPolicy Number: [id number] Hospital [id number] Repository Date:2581-28-93VP [address], [place] [address]ZP: 12/04/2017 Tertiary NOT GIVENUNK [place] Insurance:SELF PAY [facility] Number: Effective Repository Date:2017-12-03 11/20/2017 SUGEY A Primary SUGEY A SMAILDOB: [employer] [employer] SMAILDOB: Insurance:MEDICARE [id number] [facility] PART BPolicy Number: STIBBS Repository STIBBS [id number] [facility], [place] Date:2017-11-20 17607Ikm: (050) 00759~[id number] 5313-91-28Gurk [phone] @NOAHARASHel: Name:[facility] (HP)Tel: (000) Administrators LLCPO 000-0000 (WP) (HP)Tel: (000) [address] [address]Dcdfdmqpv, [place] 000-0000 (WP) [address]WQ: 11/20/2017 Secondary CORNELIA K [facility] Insurance: FOR SMAILDOB: [facility] LIFEPolicy Number: [id number] Repository [id number] [place] Date:2017-11-20 - [place] 8559-82-64Bbfr 58[address]Ekx: (122) Name:[facility] [phone] [place] [address] ()Tel: [phone]: (WP) [phone] 11/16/2017 Sugey A [id number] Primary Sugey A SmailDOB: [place] Insurance:MEDICARE [id number] PART A BPolicy Number: Hospital 35057Dug: (461) [id number] Repository [phone] () Date:2017-11-16 11/16/2017 Secondary CORNELIA Mishra Atif Insurance:WPS SMAILDOB: [facility] LIFEPoly Number: [id number] Hospital [id number] Repository Date:4494-35-08RT [address] [place] [address]SP: 11/16/2017 Tertiary NOT GIVENUNK Atif Insurance:SELF PAY [facility] Number: Effective Repository Date:2017-11-16
== END ==
PROVIDERS: Family Provider Internal Medicine; PCP Internal Medicine; Referring Provider Anesthesiology Pain Medicine; Visit Provider Anesthesiology Pain Medicine
DX: M54.9 Dorsalgia, unspecified (principal); W19.XXXA Unspecified fall, initial encounter
CPT/HCPCS: 72100

== ENCOUNTER → 2018-11-11 10:22 | Outpatient (CLI) | payer MEDICARE, OTHER, SELFPAY ==
[2018-11-11 10:44] LABS: Anion Gap 5 (5-15); BUN 37 mg/dL (7-18); BUN/Creat Ratio 23.1 RATIO (10-20); Calcium,Total 9.7 mg/dL (8.5-10.1); Chloride 108 mmol/L (98-107); EST Glomerular Filtration Rate 34 mL/min (>60); Est Glom Filt Rate - Afr Amer 41 mL/min (>60); Glucose 104 mg/dL (74-106); Potassium 4.9 mmol/L (3.5-5.1); Sodium Level 142 mmol/L (136-145)
--- OUTSIDE RECORDS SUMMARY | 2018-12-28 05:15 | XMS RPT_ITS ---
:1950 Author Organization [place] Support Name Relationship Address Phone ANTHONY GIRALDO Sister [address] + [place] [address] R Unknown Unavailable Unavailable CORNELIA LING [address] + [place] [address] ANTHONY GIRALDO Sister [address] + [place] [address] R Unknown Unavailable Unavailable CORNELIA LING [address] + [place] [address] ANTHONY GIRALDO Sister [address] + [place] [address] R Unknown Unavailable Unavailable CORNELIA LING [address] + [place] [address] ANTHONY GIRALDO Sister [address] + [place] [address] R Unknown Unavailable Unavailable CORNELIA LING [address] + [place] [address] NOT GIVEN Unknown Unavailable Unavailable CORNELIA LING Unknown [address] + [place], [place] [phone] CORNELIA LING Spouse [address] Unavailable [place] [phone] NOT GIVEN Unknown Unavailable Unavailable CORNELIA LING Unknown [address] + [place], [place] [phone] CORNELIA LING Spouse [address] Unavailable [place] [phone] NOT GIVEN Unknown Unavailable Unavailable CORNELIA LING Unknown [address] + [place], [place] [phone] CORNELIA LING Spouse [address] Unavailable [place] [phone] NOT GIVEN Unknown Unavailable Unavailable CORNELIA LING Unknown [address] + [place], [place] [phone] CORNELIA LING Spouse [address] Unavailable [place] [phone] ANTHONY GIRALDO Sister [address] + [place] [address] R Unknown Unavailable Unavailable CORNELIA LING [address] + [place] [address] ANTHONY GIRALDO Sister [address] + [place] [address] R Unknown Unavailable Unavailable CORNELIA LING [address] + [place] [address] ANTHONY GIRALDO Sister [address] + [place] [address] R Unknown Unavailable Unavailable CORNELIA LING [address] + [place] [address] ANTHONY GIRALDO Sister [address] + [place] [address] R Unknown Unavailable Unavailable CORNELIA LING [address] + [place] [address] NOT GIVEN Unknown Unavailable Unavailable CORNELIA LING Unknown [address] + [place] [phone] CORNELIA LING Spouse [address] Unavailable [place] [phone] NOT GIVEN Unknown Unavailable Unavailable CORNELIA LING Unknown [address] + [place] [phone] CORNELIA LING Spouse [address] Unavailable [place] [phone] ANTHONY GIRALDO Sister [address] + [place] [address] R Unknown Unavailable Unavailable CORNELIA LING [address] + [place] [address] ANTHONY GIRALDO Sister [address] + [place] [address] R Unknown Unavailable Unavailable CORNELIA LING [address] + [place] [address] ANTHONY GIRALDO Sister [address] + [place] [address] R Unknown Unavailable Unavailable CORNELIA LING [address] + [place] [address] TEJAL SPIVEY Unknown Unavailable + CORNELIA LING Unknown [address] + [place] [address] ANTHONY GIRALDO [address] + [place] [address] R Unknown Unavailable Unavailable CORNELIA LING [address] + [place] [address] CORNELIA LING Unknown [address] + [place] [address] CORNELIA LING Unknown [address] + [place] [address] ANTHONY GIRALDO [address] + [place] [address] R Unknown Unavailable Unavailable CORNELIA LING [address] + [place] [address] ANTHONY GIRALDO [address] + [place] [address] R Unknown Unavailable Unavailable CORNELIA LING [address] + [place] [address] ANTHONY GIRALDO Sister [address] + [place] [address] R Unknown Unavailable Unavailable CORNELIA LING [address] + [place] [address] ANTHONY GIRALDO [address] + [place] [address] R Unknown Unavailable Unavailable CORNELIA LING [address] + [place] [address] Care Team Providers Name Role Phone WILL OLIVEIRA MD Attending Unavailable DR. VERONICA HASSAN DO Primary Care Unavailable WILL OLIVEIRA DR Admitting Unavailable WILL OLIVEIRA DR Attending Unavailable WILL OLIVEIRA DR Primary Care Unavailable VERNOICA HASSAN DO Consulting Unavailable PROVIDER, UNKNOWN Consulting Unavailable WILL OLIVEIRA DR Admitting Unavailable WILL OLIVEIRA DR Attending Unavailable WILL OLIVEIRA DR Primary Care Unavailable VERONICA HASSAN DO Consulting Unavailable ROSA ELENA GIBBS MD Referring Unavailable PROVIDER, UNKNOWN Consulting Unavailable WILL OLIVEIRA DR Admitting Unavailable WILL OLIVEIRA DR Attending Unavailable WILL OLIVEIRA DR Primary Care Unavailable MO, VERONICA DO Consulting Unavailable PROVIDER, UNKNOWN Consulting Unavailable WILL OLIVEIRA DR Admitting Unavailable WILL OLIVEIRA DR Attending Unavailable WILL OLIVEIRA DR Primary Care Unavailable MO, VERONICA DO Consulting Unavailable PROVIDER, UNKNOWN Consulting Unavailable WILL OLIVEIRA DR Admitting Unavailable WILL OLIVEIRA DR Attending Unavailable WILL OLIVEIRA DR Primary Care Unavailable MO, VERONICA DO Consulting Unavailable PROVIDER, UNKNOWN Consulting Unavailable HORN, LUANA DPM Admitting Unavailable HORN, LUANA DPM Attending Unavailable HORN, LUANA DPM Primary Care Unavailable MO, VERONICA DO Consulting Unavailable PROVIDER, UNKNOWN Consulting Unavailable VIRGIL DAMIAN Attending Unavailable MO, VERONICA K Primary Care Unavailable Mo DO, Veronica Attending Unavailable Mo DO, Veronica Referring Unavailable Mo DO, Veronica Consulting Unavailable Mo, Veronica Attending Unavailable Mo, Veronica Referring Unavailable Mo, Veronica Primary Care Unavailable Horn, Luana Attending Unavailable Mo, Veronica Primary Care Unavailable Horn, Luana Referring Unavailable Sibilia, Octavio Attending Unavailable Mo, Veronica [...] Referring Unavailable Mo, Veronica Primary Care Unavailable BasalRacheal gasparman Attending Unavailable Basali, Ayman Referring Unavailable Mo, Veronica Primary Care Unavailable Will Oliveira Attending Unavailable Will Oliveira Referring Unavailable Mo, Veronica Primary Care Unavailable Will Oliveira Attending Unavailable Will Oilveira Referring Unavailable Mo, Veronica Primary Care Unavailable Tia Chirinos Attending Unavailable Mo, Veronica Referring Unavailable Mo, Veronica Primary Care Unavailable Mo, Veronica Attending Unavailable Mo, Veronica Primary Care Unavailable Tanphaichitr, Natthavat Attending Unavailable Tanphaichitr, Natthavat Referring Unavailable MoVeronica Primary Care Unavailable Chetan Serrano Attending Unavailable Chetan Serrano Referring Unavailable Mo Veronica Primary Care Unavailable Purpose Purpose PROBLEMS PROBLEMS DATE TYPE CONDITION / CODE ATTENDING STATUS SOURCE 11/11/2018 Unknown I12.9 - Mo, Active [place] Hypertensive [facility] kidney Hospital disease with stage Repository 1 through stage 4 chronic kidney disease, or unspecified chronic kidney disease / I12.9(ICD-10) 10/04/2018 Unknown E55.9 - Vitamin D Tanphaichitr, Active [place] deficiency, [facility] unspecified / Hospital E55.9(ICD-10) Repository 10/04/2018 Unknown E83.52 - Tanphaichitr, Active [place] Hypercalcemia / [facility] E83.52(ICD-10) Hospital Repository 10/04/2018 Unknown N18.4 - Chronic Tanphaichitr, Active [place] kidney disease, [facility] stage 4 (severe) / Hospital N18.4(ICD-10) Repository 10/04/2018 Unknown D63.1 - Anemia in Tanphaichitr, Active [place] chronic kidney [facility] disease / Hospital D63.1(ICD-10) Repository 10/04/2018 Unknown M10.9 - Gout, Tanphaichitr, Active [place] unspecified / [facility] M10.9(ICD-10) Hospital Repository 07/19/2018 Admitting Unilateral primary WILL OLIVEIRA Active [facility] Diagnosis osteoarthritis, DR Champagne right knee / Hospital M1711(ICD-10) Repository 07/19/2018 Principle Unilateral primary WILL OLIVEIRA Active [facility] Diagnosis osteoarthritis, DR Champagne right knee / Hospital M1711(ICD-10) Repository 07/07/2018 Admitting Encounter for other WILL OLIVEIRA Active [facility] Diagnosis preprocedural DR Champagne examination / Hospital Y26672(ICD-10) Repository 07/07/2018 Principle Encounter for other WILL OLIVEIRA Active [facility] Diagnosis preprocedural DR Champagne examination / Hospital D83814(ICD-10) Repository 07/07/2018 Secondary Type 1 diabetes WILL OLIVEIRA Active [facility] Diagnosis mellitus without DR Mahi complications / Hospital E109(ICD-10) Repository 04/19/2018 Admitting Unilateral primary WILL OLIVEIRA Active [facility] Diagnosis osteoarthritis, DR Champagne left knee / Hospital M1712(ICD-10) Repository 04/19/2018 Principle Unilateral primary WILL OLIVEIRA Active [facility] Diagnosis osteoarthritis, DR Champagne left knee / Hospital M1712(ICD-10) Repository 04/15/2018 Unknown F11.20 - Opioid Basali, Ayman Active [place] dependence, [facility] uncomplicated / Hospital F11.20(ICD-10) Repository 01/13/2018 Admitting Paroxysmal atrial DAMIAN, Active [facility] diagnosis fibrillation / VIRGIL MARY LOU Three I48.0(ICD-10) Repository 12/24/2017 Unknown R06.2 - Wheezing / Sibilia, Octavio Active [place] R06.2(ICD-10) [facility] Hospital Repository 12/31/2017 Unknown R05 - Cough / Sibilia, Octavio Active [place] R05(ICD-10) [facility] Hospital Repository 12/31/2017 Unknown R06.00 - Dyspnea, Sibilia, Octavio Active [place] unspecified / [facility] R06.00(ICD-10) Hospital Repository 12/31/2017 Unknown I51.7 - Sibilia, Octavio Active [place] Cardiomegaly / [facility] I51.7(ICD-10) Hospital Repository PROCEDURES PROCEDURES No Procedure Records FoundVITAL SIGNS VITAL SIGNS No Vital Signs Records FoundRESULTS RESULTS INITAL EVALUATION (1) Observed: 11/24/2018 Status: F Source: [place] - PT 6:17 PM [facility] HOSPITAL REPOSITORY [facility] [place] [address] / REHABILITATION SERVICES INITIAL EVALUATION MR#: [id number] Acct: [id number] Name: SUGEY LING Rep #: [id number] : 1950 67 From: Jordyn Humphries PT, Cert. MDT Referring DrIsha: Luana Van DPM Status: REG RCR Insurance: MEDICARE PART A B WPS FOR LIFE Patient's Visit Information SUGEY LING is a 67 year old F referred to Physical Therapy by Luana Van with a diagnosis of UNSTABEL GAIT. KNEE AND SPINAL SURGERIES.. Date of Evaluation: 11/19/18 Physical Therapist: Jordyn Humphries, PT, Cert MDT - Visit Plan Frequency: 2-3x /Week Duration: 4-6 Weeks Plan: AQUATIC THERAPY FOR PAIN RELEIF, POSTURE CORRECTION/STRENGTHENING, INSTRUCTION IN APPROPRIATE BODY MECHANICS AND ACTIVITY MODIFICATIONS. DLS STARTING WITH A NEUTRAL SPINE PROGRESSING ROM TOLERATED. ORAL LE ROM, STRETCHING AND STRENGTHENING. HEP INSTRUCTION. - Subjective Findings: Work/Leisure: RETIRED. Disability: ON DISABILIY FOR ABOUT A YEAR BEFORE GOING ON MEDICARE FOR HER BACK. Present symptoms: PATIENT REPORTS THE MAIN REASON SHE IS HERE IS FOR HER LOW BACK PAIN THAT GOES INTO HER RIGHT HIP AND THIGH. SHE ALSO REPORTS SHE HAS PAIN AROUND HER RIGHT KNEE. SHE ALSO REPORTS SHE IS STILL CONCERNED ABOUT THE BALANCE PROBLEMS THAT HAVE INCREASED SINCE HER KNEE SURGERY BUT HAVE BEEN THERE SINCE HER SECOND BACK SURGERY. Present since: CHRONIC BACK PAIN BUT LAST THURSDAY DECIDED TO TRY TO TOUCH HER TOES AND CAUSED INCREASED RIGHT BACK AND LE SX'S. Pain Scale: WORST 5/10, LEAST 3/10. Currently: 02/06. Commenced as a result of: BACK AND KNEE SURGERIES. Symptoms at onset: BACK. Worse: GETTING UP FROM SITTING, GETTING OUT OF BED IN THE MORNING, STANDING TOO LONG, TRYING TO FIX DINNER, WALKING, BENDING, LIFTING. Better: CREAM FROM PAIN DOCTOR FOR BACK, RIGHT HIP, RIGHT THIGH AND KNEE. SHOWER, ICE PACKS, NUSTEP MACHINE, PAIN MEDICINE. Disturbed sleep: YES. Previous history/Previous treatment: 1ST BACK SURGERY WAS ABOUT 10 TO 15 YEARS AGO, 2ND BACK SURGERY WAS ABOUT 5 YEARS AGO BUT PATIENT REALLY ISN'T SURE WHEN HER SURGERIES WERE. RIGHT TKR JUN 2018. LEFT KNEE TKR MARCH 2018. RIGHT FOOT RECONSTRUCTION - NOT RECENT. CURRENTLY IN PAIN MGMT WITH DR. SERRANO AND HAS BEEN FOR ABOUT 3 YEARS. LAST LOW BACK AMALIA WAS SEP 2018. PT SEVERAL TIMES IN THE PAST FOR HER BACK AND KNEE. 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 Coughing/sneezing/straining: YES. Gait: HAS BEEN USING A CANE OFF AND ON FOR QUITE A FEW YEARS. USED WALKER AFTER KNEE SURGERY BUT THERAPISTS PROGRESSED HER TO A CANE. NOT USING CANE IN THE HOUSE AND SOMETIMES FALLS INTO THE WALL AT HOME. Difficulty initiating urinatin: NO. Accidents: FALL AT [facility] A FEW YEARS AGO AND BROKE LEFT ARM. Unexplained weight loss: NO. Imaging: RECENT LUMBAR X-RAY: FINDINGS: Normal lumbar lordosis. Slight levoscoliosis. There is a normal alignment. of the vertebrae. Stable postsurgical fixation of L4-S1. There is multilevel endplate spondylosis of the lumbar vertebrae. There is. multi-level degenerative disc disease with multi-level disc space. narrowing. There is no demonstrated fracture. The soft tissue structures are unremarkable. RAD/Lumbar Spine 2 or 3 Views. IMPRESSION: Postsurgical and degenerative changes of the lumbar spine; slightly. advanced as compared to 2017 exam. PMH: SEE BELOW - Objective Sitting/Standing Posture: POOR. INCREASED TRUNK FLEXION AND DECREASED LORDOSIS. Active Correction of posture: WORSE. Other Observations: INDEP SLOW ANTALGIC GAIT INTO PT WITH A STRAIGHT CANE AND NO LOB. UNABLE TO SLS MORE THAN A FEW SECONDS ON EACH LEG. DECREASED WEIGHT BEARING TIME ON RIGHT LE WITH GAIT. UNABLE TO TRANSFER FROM SIT TO STAND WITHOUT UE ASSIST WITHOUT INCREASED PAIN. Motor deficit: LEFT LE: HIP FLEX 4/5, KNEE EXT 4/5, KNEE FLEX 4/5 IN AVAILABLE RANGE, ANKLE 5/5. RIGHT LE: HIP FLEX 4-/5, KNEE EXT 4-/5, KNEE FLEX 4-/5 ANKLE 5/5. Sensory deficit: RIGHT THIGH FEELS TINGLY COMPARED TO LEFT. ROM deficit: RIGHT KNEE ROM IN SUPINE WITH A HEEL SLIDE 0 DEG EXT TO 106 DEG FLEX, LEFT KNEE 0 DEG EXT TO 113 DEG FLEX. Lumbar mvmt loss: flex - MOD - NE. ext - MARIA TERESA - INCREASED LBP. R SG - MARIA TERESA - INCRESSED LBP. L SG - MARIA TERESA - INCREASED LBP. Core strength: POOR. Palpation: TENDERNESS WITH LIGHT PALPATION THROUGHOUT THE LUMBAR REGION AND INTO THE RIGHT GREATER TROCH AND LATERAL THIGH REGION TO THE KNEE BUT NOT IN THE RIGHT BUTTOCK REGION. - Goals Goal 1:: DECREASE C/O BACK AND RIGHT LE SX'S Goal Time Frame: 4-6 Weeks Goal 2:: IMPROVE LIFTING, WALKING, SITTING, STANDING, SLEEP, SOCIAL LIFE, TRAVEL AND HOMEMAKING FUNCTION Goal Time Frame: 4-6 Weeks Goal 3:: INSTRUCT IN PROPHYLAXIS Goal Time Frame: 4-6 Weeks - Rehabilitation Potential Rehabilitation Potential: Fair - Anticipated Interventions Patient/Client Instruction: Educate patient on: Condition, Plan of Care, Risk Factors, Benefits of Fitness Program For the Purpose of:: To improve self management Therapeutic Exercise to Include: Strength training, Balance training, Body mechanics, Postural training, Flexibilty training, Gait and locomotor training, In an aquatic setting, Active ROM, Dynamic Lumbar Stabilization For the Purpose of:: To decrease pain, To increase ROM, To improve muscle performance and motor function, To increase tolerance to activity/condition/position, To improve ability of physical actions for home/community/work/leisure, To improve gait and locomotor functions Thank you for the opportunity to evaluate your patient. For Medicare and Medicare HMO plans, please review the plan of care and approve it. It will need to be FAXED BACK to us at [phone] for Medicare purposes. For Medicare only, by signing this I certify the plan of care. Please let me know if there are questions or concerns regarding this plan of care. Physician Signature: Date: <Electronically signed by Jordyn Humphries PT, Cert. MDT> 11/24/18 1817 CC: Veronica Van DPM STORMY Signed BASIC METABOLIC Collected: 11/11/2018 Status: F Source: [place] PROFILE (BMP) 12:00 AM [facility] [place] TYPE CODE TESTS RESULT OUT OF [...] GAP 5 Performed By: #### L500.2500 #### [facility] [address] [place], [address] LUMBAR SPINE 2 OR 3 Observed: 10/26/2018 Status: F Source: [place] VIEWS 12:47 PM [facility] [place] [facility] Imaging Services [address] [place] [address] Lumbar Spine 2 or 3 Views MR#: [id number] Acct: [id number] Name: SUGEY LING Devin Rep #: [id number] : 1950 F 67 From: Dwight Choudhury DO PCP: Veronica Hassan DO Status: REG CLI Study: Lumbar Spine 2 or 3 Views Date of Exam: 10/26/18 Exam# [id number] Ordering Dr: Chetan Serrano MD STUDY: X-RAY - LUMBAR SPINE REASON [...] compared to 2017 exam Electronically Signed: Dwight EstebankeilaDO at 11:37 EST Tel , Service support , CC: Chetan Serrano MD; Veronica Hassan DO Chisel Worker: Signed CBC-COMPLETE BLOOD CNT Collected: 10/04/2018 Status: F Source: [place] NO DIFF 11:21 AM [facility] [place] TYPE CODE TESTS RESULT OUT OF [...] MPV 9.8 Performed By: #### L100.0500 #### [facility] [address] [place], [place], [address] PROTEIN+CREATININE Collected: Status: F Source: [place] RATIO,URINE 10/04/2018 11:21 AM [facility] [place] TYPE CODE TESTS RESULT OUT OF RANGE REFERENCE UNITS LAB L501.1200 NO RANGE EST. mg/dL Normal UR CREAT 74.00 LAB L501.1930 <11.9 mg/dL Normal 8.6 PROTEIN,UR.R AN. LAB L501.1940 0-200 mg/g CRE Normal PROT:CRE 116 RATIO Performed By: #### L501.0900 #### [facility] [address] [place], [address] RENAL PROFILE Collected: 10/04/2018 Status: F Source: [place] 11:21 AM [facility] [place] TYPE CODE TESTS RESULT OUT OF [...] Performed By: #### L500.3600, L501.1400, L501.5200 #### [facility] [address] [place], [address] URIC ACID Collected: 10/04/2018 Status: F Source: [place] 11:21 AM [facility] [place] TYPE CODE TESTS RESULT OUT OF RANGE REFERENCE UNITS LAB L501.1400 2.6-6.0 mg/dL Normal URIC 5.6 Result Comment: The drugs N-Acetylcysteine and Metamizole may falsely depress this assay. Performed By: #### L500.3600, L501.1400, L501.5200 #### [facility] [address] [place], [address] MAGNESIUM Collected: 10/04/2018 Status: F Source: [place] 11:21 AM [facility] [place] TYPE CODE TESTS RESULT OUT OF RANGE REFERENCE UNITS LAB L501.5200 1.6-2.6 mg/dL Normal MG 1.9 Performed By: #### L500.3600, L501.1400, L501.5200 #### [facility] [address] [place], [address] PTHIN Collected: 10/04/2018 Status: F Source: [place] 11:21 AM [facility] [place] TYPE CODE TESTS RESULT OUT OF RANGE REFERENCE UNITS LAB L509.1000 18.4-80.1 pg/mL Normal PTHIN 36.7 Performed By: #### L509.1000 #### [facility] [address] [place], [address] VITAMIN D,25 HYDROXY Collected: 10/04/2018 Status: F Source: [place] 11:21 AM [facility] [place] TYPE CODE TESTS RESULT OUT OF RANGE REFERENCE UNITS LAB L506.1000 29.95-100.01 ng/mL Normal Vitamin D 32.8 25-OH Result Comment: Vitamin D 25(OH) Status Range Deficiency <20 ng/mL (50nmol/L) Insuffciency 20 - 30 ng/mL (50 - 75 nmol/L) Sufficiency 30 - 100 ng/mL (75 - 250 nmol/L) Toxicity >100 ng/mL (>250 nmol/L) Performed By: #### L506.1000 #### [facility] [address] [place], [address] FOOT COMPLETE LT Observed: 09/16/2018 Status: F Source: [place] 2:[address] [address] Patient: SUGEY LING Phone#: : 1950 Age: 67 Gender: F Pt. Type: Out Account: [id number] Location: [id number] Ordering: LUANA VAN Exam Date: 09/16/2018/14:01 Family Phys: VERONICA HASSAN Charge Code: [id number] Physician: [place] Order #: [id number] DLP Dose#: PROCEDURE: X-RAY FOOT LT COMPLETE MIN 3 VIEWS COMPARISON: [facility], XR, FOOT COMPLETE LT, 04/21/2013, 9:56. INDICATIONS: [...] Laureen Godwin MD on 09/16/2018 at 15:31 SWIMMING INSTRUCTOR REPORT Observed: 08/03/2018 Status: F Source: [place] 12:15 AM [facility] [place] CONSULTATION REPORT NAME ACCOUNT SEX AGE ADMIT DISCHARGE PT MED. NUMBER DATE DATE TYPE RECORD# SUGEY LING [id number] F 67 07/19/18 07/20/18 1 [id number] ROOM: [facility] DATE OF : 1950 DICTATING PHYSICIAN: Collette Campbell DATE OF CONSULTATION: July 20, 2018 CONSULTING PHYSICIAN: Dr. Will Oliveira REASON FOR CONSULTATION: Medical management postoperative. PROCEDURE: [...] Hysterectomy. (3) x2. (4) Lumbar fusion in [place]. MEDICATIONS: The patient is currently on the [...] allopurinol. Page 1 of 2 SUGEY LING Consultation SOCIAL HISTORY: The patient is disabled, [...] signs has revealed the patient to be -Mongolian. Blood pressure last evening was 121/78 and [...] Collette Campbell MD 07/20/18 18:09 JOB #: [id number] Transcribed By: am 07/20/18 19:04 Electronically signed by: PATTIE CAMPBELL MD 08/03/18 00:14 Page 2 of 2 SUGEY LING Consultation DISCHARGE SUMMARY Observed: 07/27/2018 Status: F Source: [facility] 7:58 AM [facility] DISCHARGE SUMMARY NAME ACCOUNT SEX AGE ADMIT DISCHARGE PT MED. RECORD# NUMBER DATE DATE TYPE SUGEY LING [id number] F 67 07/19/18 1 [id number] ROOM: [facility] DATE OF : 1950 DICTATING PHYSICIAN: Theresa Galvan PROGRESS NOTE/DISCHARGE SUMMARY ATTENDING PHYSICIAN: Dr. Will Oliveira DATE OF ADMISSION: July 19, 2018 DATE [...] postoperative day #1. 2. She will continue Seneca 5/325 mg one to two p.o. every [...] Theresa Galvan PA-C 07/20/18 07:59 JOB #: [id number] Transcribed By: shaneka 07/20/18 12:35 Electronically signed by: E-sign Theresa VARGAS 07/27/18 07:47 Page 2 of 2 SUGEY LING Discharge Summary CBC Collected: 07/20/2018 Status: F Source: [place] 5:12 AM [facility] REPOSITORY TYPE CODE TESTS RESULT OUT OF [...] x10EE3/U L Neut # High 12.00 LAB Bucks #(LOINC) 0.20 - 1.00 x10EE3/U L Bucks # 0.90 LAB EO #(LOINC) 0.00 - 0.50 x10EE3/U L EO # 0.00 LAB Baso #(LOINC) 0.00 - 0.10 x10EE3/U L Baso # 0.00 LAB MANUAL DIFF(LOINC) MANUAL DIFF N/A LAB MORPHOLOGY(LOINC ) MORPHOLOGY N/A Result Comment: {CD] Performed By: #### [id number] #### [facility],[address] [place] [address] BMP WITH EGFR Collected: 07/20/2018 Status: F Source: [facility] 5:12 AM [facility] REPOSITORY TYPE CODE TESTS RESULT OUT OF RANGE REFERENCE UNITS LAB BMP with eGFR(LOINC) BMP with eGFR Result Comment: BASIC METABOLIC PANEL LAB SODIUM(LOINC) 136 - 145 mmol/l SODIUM Low 133 LAB POTASSIUM(LOINC) 3.5 - 5.1 mmol/L POTASSIUM 4.8 LAB CHLORIDE(LOINC) 98 - 107 mmol/L CHLORIDE 103 LAB CO2(LOINC) 21.0 - mmol/L 31.0 CO2 22.6 LAB [...] OF AGE AND OLDER. Performed By: #### [id number] #### [facility],[address] [place] [id number] OPERATIVE PROCEDURES Observed: 07/19/2018 Status: F Source: [facility] 4:23 PM [facility] OPERATIVE REPORT NAME ACCOUNT SEX AGE ADMIT DISCHARGE PT MED. RECORD# NUMBER DATE DATE TYPE SUGEY LING [id number] F 67 07/19/18 1 [id number] ROOM: [facility] DATE OF : 1950 DICTATING PHYSICIAN: Will Oliveira DATE OF SURGERY: July 19, 2018 SURGEON: Will Oliveira MD GLOVE TURNER AND FORMER: Theresa Galvan PA-C; MARISOL Shirley ANESTHESIOLOGIST: Declan [...] She underwent standard wound closure in layers. assistant corporate controller, physician administrative services assistant, was utilized throughout the entire procedure. She helped with patient positioning, holding of retractors and exposure throughout. She helped with positioning of our cutting guides. She helped with cementation of components, would closure, bandage application, and patient transfer. Without surgical Page 1 of 3 SUGEY LING A Operative Report library media assistant, surgical time would have been increased, [...] was held by the surgeon while the administrative services assistant drilled through it with the drill, [...] full extension with inserts in place. The administrative services assistant injected the remainder of our pain-relieving [...] dried. Page 2 of 3 SUGEY LING A Operative Report The arthrotomy was repaired with [...] aspirin tomorrow. We will continue her on Seneca and extended-release morphine, which the patient states worked for her previously. She denied any true allergies to those. Hopefully she will be discharged to home tomorrow. Dictated By: Will Oliveira MD 07/19/18 11:20 JOB #: [id number] Transcribed By: shaneka 08/20/18 15:39 Electronically signed by: E-SIGN DR. WILL OLIVEIRA M.D. 07/19/18 16:23 Page 3 of 3 SUGEY MCDONNELL Devin Operative Report FINAL SURGICAL Observed: 07/19/2018 Status: F Source: [facility] PATHOLOGY REPORT 2:37 PM [facility] REPOSITORY . Pathology Reports Accession: Collected Date/Time: Received Date/Time: Pathologist: [id number] 07/19/2018 14:37 EDT 07/20/2018 14:38 EDT MD KOTA CERNA Final Surgical Pathology Report DIAGNOSIS: RIGHT KNEE, REPLACEMENT: - OSTEOARTHRITIS WITH IRREGULAR PITTED ARTICULAR SURFACE AND EBURNATION. - NEGATIVE FOR INFLAMMATION OR NEOPLAIA. COMMENT: [facility]# [id number] CLINICAL INFORMATION: UNILATERAL PRIMARY OSTEOARTHRITIS, RIGHT KNEE [...] bone is yellow and dense to trabecular. Horseradish Grinder section(s) are submitted following decalcification in one cassette. Dictated by [place] VARGAS ([facility]) MICROSCOPIC DESCRIPTION: Slides reviewed. Electronically Signed by Pathology Report verified by [facility] Electronically signed by KOTA CERNA MD Sign out Date: 07/23/2018 13:49 Performing Lab: [facility], [address] [place] [address] Performed By: #### SPFR #### [place] [address] KNEE 2 VIEWS RT Observed: 07/19/2018 Status: F Source: RAJI SALCHARLES 11:52 AM [place] [address] Patient: HORTENSIA SUGEY Michelle Phone#: : 1950 Age: 67 Gender: F Pt. Type: In Account: [id number] Location: [facility] Ordering: WILL OLIVEIRA Exam Date: 07/19/2018/11:45 Family Phys: VERONICA HASSAN Charge Code: 877602 Physician: [place] Order #: [id number] DLP Dose#: PROCEDURE: X-RAY KNEE RT 2 [...] at 12:00 Observed: 07/19/2018 Status: F Source: [facility] MRSA SCREEN NARES 8:24 AM [facility] REPOSITORY MRSA SCREEN NEGATIVE Methicillin resistant Staphylococcus [...] monitor treatment of infection. Performed By: #### [id number] #### [facility],[address] [place] [address] CBC Collected: 07/07/2018 Status: F Source: [facility] 10:52 AM [facility] REPOSITORY TYPE CODE TESTS RESULT OUT OF [...] 7.10 x10EE3/U L Neut # 6.40 LAB Bucks #(LOINC) 0.20 - 1.00 x10EE3/U L Bucks # 1.00 LAB EO #(LOINC) 0.00 - 0.50 x10EE3/U L EO # 0.30 LAB Baso #(LOINC) 0.00 - 0.10 x10EE3/U L Baso # 0.10 LAB MANUAL DIFF(LOINC) MANUAL DIFF N/A LAB MORPHOLOGY(INC ) MORPHOLOGY N/A Result Comment: {CD] Performed By: #### [id number] #### [facility],[address] [place] [address] BMP WITH EGFR Collected: 07/07/2018 Status: F Source: [facility] 10:52 AM [facility] REPOSITORY TYPE CODE TESTS RESULT OUT OF [...] OF AGE AND OLDER. Performed By: #### [id number] #### [place] [address] HGB A1C Collected: 07/07/2018 Status: F Source: RAJI MARTIN 10:52 AM [facility] REPOSITORY TYPE CODE TESTS RESULT OUT OF RANGE REFERENCE UNITS LAB HGB 4.4 - 6.4 % A1C(LOINC) HGB A1C 6.4 Result Comment: {HB] {A1] Performed By: #### [id number] #### [place] [address] CT LOWER EXTREMITY RT Observed: 06/03/2018 Status: F Source: RAJI MARTIN WO 1:14 PM [facility] REPOSITORY [place] [address] Patient: SUGEY LING Phone#: : 1950 Age: 67 Gender: F Pt. Type: Out Account: [id number] Location: [facility] Ordering: WILL OLIVEIRA Exam Date: 06/03/2018/12:53 Family Phys: VERONICA HASSAN Charge Code: [id number] Physician: [place] Order #: [id number] DLP Dose#: PROCEDURE: CT LOWER EXTREMITY RT [...] - Page 2 of 2 Patient: SUGEY LING Devin. Phone#: : 1950 Age: 67 Gender: F Pt. Type: Out Account: [id number] Location: [facility] Ordering: WILL OLIVEIRA Exam Date: 06/03/2018/12:53 Family Phys: VERONICA HASSAN Charge Code: [id number] Physician: [place] Order #: [id number] DLP Dose#: Dictated by: Laureen Godwin MD on 06/03/2018 at 18:52 Approved by: Laureen Godwin MD on 06/03/2018 at 18:52 ORTHOPEDIC VISIT Observed: 05/22/2018 Status: F Source: [place] REPORT 2:08 PM [facility] Orthopaedics AND Sports Medicine [address] [place] [address] OFFICE VISIT Date of Service: 05/11/18 MR#: [id number] Acct: [id number] Name: SUGEY LING Devin Rep #: [id number] : 1950 Provider: Tia Chirinos MD Age/Sex: 67/F Location: [facility].SMO Status: Signed Intake Intake Visit Reasons: LOW [...] [History Confirmed 01/07/18] Fluticasone 0.05% [Flonase Nasal [place]] 1 spray NASAL DAILY 06/21/17 [History Confirmed 01/07/18] Fluticasone/Salmeterol [Advair 500/50 Mcg Diskus] 1 puff INHALATION BID 06/21/17 [History Confirmed 01/08/18] Furosemide [Lasix] 40 mg PO DAILY PRN PRN 06/21/17 [History Confirmed 01/07/18] Insulin Detemir [Levemir (BKC)] 24 units SC QHS 06/21/17 [History Confirmed 01/08/18] [place]-3S/Dha/Epa/Fish Oil [Fish Oil 1,200 mg Softgel] 1 ea PO DAILY 06/21/17 [History Confirmed 01/07/18] Pantoprazole Sodium [Protonix] 40 mg PO BID 06/21/17 [History Confirmed 01/08/18] Tiotropium Galien [Spiriva Respimat] 2 puff IH DAILY 06/21/17 [...] with nothing. 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 [place] machine operator who would not clear her for a 6 [address] surgery[address] Patient saw Dr Serrano who gave her a caudal injection which was helpful. She has spoken with Dr Serrano in the past regarding a spinal stimulator. [...] She had postop atrial fibrillation as well. [facility] Qumu Reports system reviewed and no additional complaints, [...] She would like to speak with Dr. Serrano regarding possible spinal sord stimulator. She will [...] Cosigner Signature: Date (if applicable) CC: Chetan Serrano MD SCREENING MAMM (CAD), Observed: 05/20/2018 Status: F Source: [facility] 10:52 AM [facility] Imaging Services [address] [place] [address] SCREENING MAMM (CAD), BILAT MR#: [id number] Acct: [id number] Name: SUGEY LING Rep #: [id number] : 1950 F 67 From: Anam Larios MD PCP: Veronica Hassan DO Status: REG CLI Study: SCREENING MAMM (CAD), BILAT Date of Exam: 05/20/18 Exam# [id number] Ordering Dr: Veronica Hassan DO MAMMOGRAPHY - [...] delay biopsy of a clinically suspicious abnormality. [id number] Electronically Signed: Anam Larios MD at 7:57 EDT Tel [phone], Service support , CC: Veronica Hassan DO Chisel Worker: Signed DISCHARGE SUMMARY Observed: 05/03/2018 Status: F Source: RAJI MARTIN 10:11 AM [facility] DISCHARGE SUMMARY NAME ACCOUNT SEX AGE ADMIT DISCHARGE PT MED. RECORD# NUMBER DATE DATE TYPE SUGEY LING [id number] F 67 04/19/18 1 [id number] ROOM: [facility] DATE OF : 1950 DICTATING PHYSICIAN: Theresa Galvan PROGRESS NOTE/DISCHARGE SUMMARY ATTENDING PHYSICIAN: Dr. Will Oliveira DATE OF ADMISSION: April 19, 2018 DATE [...] Theresa Galvan PA-C 04/20/18 07:50 JOB #: [id number] Transcribed By: shaneka 04/20/18 08:54 Electronically signed by: E-sign Theresa VARGAS 04/29/18 13:49 Page 2 of 2 HORTENSIA SUGEY A Discharge Summary BASIC METABOLIC Collected: 04/22/2018 Status: F Source: [facility] PROFILE (BMP) 12:32 PM [facility] TYPE CODE TESTS RESULT OUT OF [...] GAP 3 Performed By: #### L500.2500 #### [facility] [address] [place], [address] PROGRESS NOTE Observed: 04/20/2018 Status: F [facility] PROGRESS NOTE NAME ACCOUNT SEX AGE ADMIT DISCHARGE PT MED. RECORD# NUMBER DATE DATE TYPE SUGEY LING [id number] F 67 04/19/18 1 [id number] ROOM: [id number] DATE OF : 1950 DICTATING [...] Elena Gibbs MD 04/20/18 12:22 JOB #: [id number] Transcribed By: am 04/20/18 13:20 Electronically signed by: Page 1 of 2 SUGEY LING Progress Note E.Sign Dr.Butros Sai Allen 04/20/18 18:41 Page 2 of 2 SUGEY LING Progress Note CBC Collected: 04/20/2018 Status: F Source: RAJI MARTIN 5:23 AM [facility] REPOSITORY TYPE CODE TESTS RESULT OUT OF [...] x10EE3/U L Neut # High 15.00 LAB Bucks #(LOINC) 0.20 - 1.00 x10EE3/U L Bucks # 1.00 LAB EO #(LOINC) 0.00 - 0.50 x10EE3/U L EO # 0.00 LAB Baso #(LOINC) 0.00 - 0.10 x10EE3/U L Baso # 0.10 LAB MANUAL DIFF(LOINC) MANUAL DIFF N/A LAB MORPHOLOGY(INC ) MORPHOLOGY N/A Result Comment: {CD] Performed By: #### [id number] #### [facility],[address] [place] [address] BMP WITH EGFR Collected: 04/20/2018 Status: F Source: [facility] 5:23 AM [facility] REPOSITORY TYPE CODE TESTS RESULT OUT OF [...] OF AGE AND OLDER. Performed By: #### [id number] #### [facility],[address] [place], [place] [address] SWIMMING INSTRUCTOR REPORT Observed: 04/19/2018 Status: F Source: [facility] 8:12 PM [facility] CONSULTATION REPORT NAME ACCOUNT SEX AGE ADMIT DISCHARGE PT MED. NUMBER DATE DATE TYPE RECORD# SUGEY LING [id number] F 67 04/19/18 1 [id number] ROOM: [facility] DATE OF : 1950 DICTATING PHYSICIAN: Rosa Elena Gibbs DATE OF CONSULTATION: April 19, 2018 REFERRING PHYSICIAN: Dr. Will Oliveira. REASON FOR CONSULTATION: Medical management after left [...] (4) Lumbar surgery twice, one time in [place] and the second time in [place]. (5) Left total knee arthroplasty on April [...] SUGEY LING Consultation 04/19/18 18:23 JOB #: [id number] Transcribed By: am 04/19/18 19:01 Electronically signed by: Estella Gibbs M.D. 04/19/18 20:12 Page 3 of 3 SUGEY LING Consultation FINAL SURGICAL Observed: 04/19/2018 Status: F Source: [facility] PATHOLOGY REPORT 2:26 PM [facility] REPOSITORY . Pathology Reports Accession: Collected Date/Time: Received Date/Time: Pathologist: [id number] 04/19/2018 14:26 EDT 04/20/2018 14:26 EDT MD DREW DONALDSON Final Surgical Pathology Report DIAGNOSIS: LEFT KNEE BONE -- DEGENERATIVE ARTICULAR CHANGES WITHOUT EVIDENCE OF ACUTE INFLAMMATION OR TUMOR. COMMENT: [facility]# [id number] CLINICAL INFORMATION: .BILATERAL KNEE - PRIMARY OSTEOARTHRITIS [...] bone is yellow and dense to trabecular. Horseradish Grinder section(s) are submitted following decalcification in one cassette. Dictated by [place] VARGAS ([facility]) MICROSCOPIC DESCRIPTION: Slides reviewed. Electronically Signed by Pathology Report verified by [facility] Electronically signed by DREW DONALDSON MD Sign out Date: 04/23/2018 09:51 Performing Lab: [address] Performed By: #### SPFR #### [place] [address] OPERATIVE PROCEDURES Observed: 04/19/2018 Status: F Source: RAJI MARTIN 11:21 AM [facility] OPERATIVE REPORT NAME ACCOUNT SEX AGE ADMIT DISCHARGE PT MED. RECORD# NUMBER DATE DATE TYPE SUGEY LING [id number] F 67 04/19/18 1 [id number] ROOM: [facility] DATE OF : 1950 DICTATING PHYSICIAN: Will Oliveira DATE OF SURGERY: April 19, 2018 SURGEON: Will Oliveira MD GLOVE TURNER AND FORMER: Theresa Galvan PA-C; MARISOL Shirley ANESTHESIOLOGIST: Declan [...] She underwent standard wound closure in layers. assistant news director, physician administrative services assistant was utilized throughout the entire procedure. She helped with holding of limbs and holding of retractors. She helped with exposure Page 1 of 3 SUGEY LING A Operative Report throughout. She helped with sizing, alignment and positioning of components. She helped with wound closure, bandage application and patient transfer. Without surgical physician administrative services assistant, surgical time could have been increased, [...] Xarelto and hopefully discharge soon. Dictated By: Will Oliveira MD 04/19/18 08:45 JOB #: [id number] Transcribed By: shaneka 04/19/18 08:47 Electronically signed by: E-SIGN DR. WILL OLIVEIRA M.D. 04/19/18 11:21 Page 3 of 3 SUGEY LING Operative Report KNEE 2 VIEWS LT Observed: 04/19/2018 Status: F [facility] [place] [address] Patient: SUGEY LING. Phone#: : 1950 Age: 67 Gender: F Pt. Type: In Account: [id number] Location: [facility] Ordering: WILL OLIVEIRA Exam Date: 04/19/2018/9:49 Family Phys: VERONICA HASSAN Charge Code: 500030 Physician: [place] Order #: [id number] DLP Dose#: PROCEDURE: X-RAY KNEE LT 2 [...] at 10:02 Observed: 04/19/2018 Status: F Source: [facility] MRSA SCREEN NARES 5:45 AM [facility] MRSA SCREEN POSITIVE Methicillin resistant Staphylococcus aureus [...] monitor treatment of infection. Performed By: #### [id number] #### [facility],[address] [place] [address] URINE DRUG SCREEN Collected: 04/01/2018 Status: F Source: [place] [facility] 1:28 PM [facility] Order Comment: Comments: TRAMADOL URINE [id number] List of Drugs Taken or Suspected? UNK [...] Normal NEGATIVE Performed By: #### L505.5000 #### [facility] [place], [address] MISCELLANEOUS LAB Collected: 04/01/2018 Status: F Source: [facility] PROCEDURE 1:28 PM [facility] Order Comment: Comments: TRAMADOL URINE [id number] Test(s) Ordered: URINE TOXICOLOGY [id number] RUN LOWEST TEST TYPE CODE TESTS RESULT OUT OF RANGE REFERENCE UNITS LAB L801.1541 Normal [facility] LAB TEST Result Comment: [id number] 6+OXYCODONE-BUND (ng/mL) DRUG RESULT SCREEN CUTOFF ____ Amphetamines,Urine Negative ng/mL 1000 Amphetamine test includes Amphetamine and Methamphetamine. Barbiturates Negative ng/mL 200 Benzodiazepines Negative ng/mL 200 Cannabinoid Negative ng/mL 20 Cocaine (Metab) Negative ng/mL 300 Opiates Negative ng/mL 300 Opiates test includes Codeine, Morphine, Hydromorphone, Hydrocodone. Oxycodone/Oxymorphone,Urine Negative ng/mL 300 Test includes Oxydodone and Oxymorphone. TESTING PERFORMED AT [facility]. ORIGINAL REPORT ON FILE IN LAB CONTAINS ADDITIONAL TEST SITE INFORMATION. Performed By: #### L801.1541 #### [facility] [place], [address] MISCELLANEOUS LAB Collected: 04/01/2018 Status: F Source: [facility] PROCEDURE 2 1:28 PM [facility] Order Comment: Comments: TRAMADOL URINE [id number] List Test(s) Ordered by Physician: URINE TOXICOLOGY [id number] RUN LOWEST TEST TYPE CODE TESTS RESULT OUT OF RANGE REFERENCE UNITS LAB L801.1543 Normal [facility] TEST 2 Result Comment: TEST RESULT LIMITS Tramadol Positive Cutoff = 200 Tramadol GC/MS COnf 6050 ng/mL Cutoff = 100 TESTING PERFORMED AT [facility]. ORIGINAL REPORT ON FILE IN LAB CONTAINS ADDITIONAL TEST SITE INFORMATION. Performed By: #### L801.1543 #### [facility] [address] [place], [address] MICROALB:CREAT Collected: 03/29/2018 Status: F Source: [facility] RATIO,RANDOM UR 11:14 AM [facility] TYPE CODE TESTS RESULT OUT OF RANGE REFERENCE UNITS LAB L501.1200 NO RANGE EST. mg/dL Normal UR CREAT 111.00 LAB L502.0500 NO RANGE EST. mg/L Normal 6.1 MICROALBUMIN ,UR LAB L502.0600 <30 mg/g CRE mg/g CRE Normal 5.5 MALB:CREAT Performed By: #### L502.0250 #### [facility] [address] [place], [address] PTHIN Collected: 03/29/2018 Status: F Source: [facility] 11:14 AM [facility] TYPE CODE TESTS RESULT OUT OF RANGE REFERENCE UNITS LAB L509.1000 18.4-80.1 pg/mL Normal PTHIN 25.7 Result Comment: Please Note: PTH INTACT METHOD AND REFERENCE RANGE CHANGE Effective 11/18/2017. Performed By: #### L509.1000 #### [facility] [address] [place], [address] RENAL PROFILE Collected: 03/29/2018 Status: F Source: [facility] 11:14 AM [facility] TYPE CODE TESTS RESULT OUT OF [...] Performed By: #### L500.3600, L501.1400, L501.5200 #### [facility] [address] [facility] [facility] [id number] URIC ACID Collected: 03/29/2018 Status: F Source: [place] 11:14 AM [facility] TYPE CODE TESTS RESULT OUT OF RANGE REFERENCE UNITS LAB L501.1400 2.6-6.0 mg/dL High URIC 8.4 Result Comment: The drugs N-Acetylcysteine and Metamizole may falsely depress this assay. Performed By: #### L500.3600, L501.1400, L501.5200 #### [facility] [address] [place], [place], [address] MAGNESIUM Collected: 03/29/2018 Status: F Source: [place] 11:14 AM [facility] TYPE CODE TESTS RESULT OUT OF RANGE REFERENCE UNITS LAB L501.5200 1.6-2.6 mg/dL Normal MG 1.7 Performed By: #### L500.3600, L501.1400, L501.5200 #### [facility] [address] [facility] [address] [place], [place], [address] VITAMIN D,25 HYDROXY Collected: 03/29/2018 Status: F Source: [facility] 11:14 AM [facility] TYPE CODE TESTS RESULT OUT OF RANGE REFERENCE UNITS LAB L506.1000 29.95-100.01 ng/mL Normal Vitamin D 36.6 25-OH Result Comment: Vitamin D 25(OH) Status Range Deficiency <20 ng/mL (50nmol/L) Insuffciency 20 - 30 ng/mL (50 - 75 nmol/L) Sufficiency 30 - 100 ng/mL (75 - 250 nmol/L) Toxicity >100 ng/mL (>250 nmol/L) Performed By: #### L506.1000 #### [facility] [address] [facility] [address] [place], [place], [address] CBC-COMPLETE BLOOD CNT Collected: 03/29/2018 Status: F Source: [facility] NO DIFF 11:14 AM [facility] TYPE CODE TESTS RESULT OUT OF [...] MPV 9.5 Performed By: #### L100.0500 #### [facility] [address] [facility] [place], [address] MODIFIED BARIUM Observed: 01/29/2018 Status: F Source: [place] SWALLOW STUDY 3:20 PM [facility] Speech Pathology [address] [place] [address] Modified Barium Swallow Study MR#: [id number] Acct: [id number] Name: SUGEY LING Rep #: [id number] : 1950 67 From: Eliezer Duke M.A., CFY-MINE ENGINEERING SUPERINTENDENT PRIMARY / SECONDARY DIAGNOSIS: dysphagia (R13.10) REFERRING [...] 04/09/2014 Patient inhaled pieces of hamburger and [place] rice. 04/26/2014 underwent bronchoscopy with bronchial lavage and foreign body removal after aspirating rice during intake of hamburger and [place] rice. 12/04/2017 CT/Chest revealed old granulomatous disease; no acute pulmonary abnormality; resolution of the right lower lobe infiltrate seen on the prior CT. 12/31/2017 CXR revealed cardiomegaly; pectus excavatum deformity; no acute abnormality is seen. 01/08/2018 underwent bronchoscopy with bronchial lavage and foreign body removal after aspirating rice during intake of [place]riot food with resulting pneumonitis of both food and emesis with bronchospasm, documentation reveals history of esophageal strictures with plans for academic services coordinator referral for possible esophageal dilatation. Patient reports [...] Thin liquids via cup (single sip): 1 [place] thickened liquids via cup (single sip): 1 [place] thickened liquids via cup (single sip): 2 [place] thickened liquids via cup (single sip): 1 [...] esophageal functioning, with workup currently underway via academic services coordinator. Patient able to comprehend and express recommended [...] 01/29/18 1520 <Electronically signed by Eliezer Duke M.A. CFY-MINE ENGINEERING SUPERINTENDENT> Date Eliezer Duke M.A. CFY-MINE ENGINEERING SUPERINTENDENT Co-Signature Required for all Medicare patients Date/Time Co-Signature CC: SWALLOWING FUNCTION Observed: 01/29/2018 Status: F Source: [place] W/VIDEO 1:10 PM [facility] Imaging Services [address] [place] [address] Swallowing Function w/Video MR#: [id number] Acct: [id number] Name: SUGEY LING Rep #: [id number] : 1950 F 67 From: Anam Larios MD PCP: Veronica Hassan DO Status: REG CLI Study: Swallowing Function w/Video Date of Exam: 01/29/18 Exam# [id number] Ordering Dr: Isaías Stroud MD STUDY: SWALLOWING [...] Anam Larios MD at 14:25 EST Tel [phone], Service support , CC: Veronica Hassan DO; Isaías Stroud Chisel Worker: Signed BEDSIDE GLUCOSE Collected: 01/08/2018 Status: F Source: [place] 4:13 PM [facility] TYPE CODE TESTS RESULT OUT OF REFERENCE UNITS RANGE LAB L501.080 70-110 mg/dL High BEDSIDE GLU 132 Result Comment: MANAGEMENT OF PATIENT CARE PER NURSING PROTOCOL Performed By: #### L501.080 #### [facility] Point of Care [address] [facility] [place], [place] [address] Observed: 01/08/2018 Status: F Source: [facility] CULTURE, BRONCH 12:00 AM [facility] [facility] List Antibiotics Last 48 Hours? . List Antibiotics to be Started? . Gram Stain Gram Stain No White Blood Cells No organisms seen Resp. Culture Mixed normal respiratory hermelindo. No Haemophilus, Streptococcus pneumoniae, beta-hemolytic Streptococcus or Staphylococcus aureus isolated. Performed By: #### M100.9500 #### [facility] [address] [facility] [place], [address] BMP Collected: 01/06/2018 Status: F Source: [facility] [employer] 2:25 PM [facility] REPOSITORY TYPE CODE TESTS RESULT OUT OF [...] BMP, GFR, A1C, CBC, ADIFF, ANEU #### [address] [address] .GFR Collected: 01/06/2018 Status: F Source: [facility] 2:25 PM [facility] REPOSITORY TYPE CODE TESTS RESULT OUT OF REFERENCE UNITS RANGE LAB GFRAA(LOINC ml/min/1.73 ) sqm GFR 42 Mong[place]ian Result Comment: GFR Population mean for , [...] DEANDRE, GFR, A1C, CBC, ADIFF, ANEU #### [facility] [address] [address] A1C Collected: 01/06/2018 Status: F Source: [facility] 2:25 [facility] REPOSITORY TYPE CODE TESTS RESULT OUT OF RANGE REFERENCE UNITS LAB A1C(LOINC) 4.8-5.9 % High Hgb A1c 8.9 Performed By: #### BMP, GFR, A1C, CBC, ADIFF, ANEU #### [facility] [address] [address] CBC Collected: 01/06/2018 Status: F Source: [facility] 2:25 PM [facility] REPOSITORY TYPE CODE TESTS RESULT OUT OF [...] BMP, GFR, A1C, CBC, ADIFF, ANEU #### [address] [address] .AUTO DIFF Collected: 01/06/2018 Status: F Source: [facility] 2:25 [facility] REPOSITORY TYPE CODE TESTS RESULT OUT OF [...] BMP, GFR, A1C, CBC, ADIFF, ANEU #### [address] [address] .NEUABS Collected: 01/06/2018 Status: F Source: [facility] 2:25 [facility] REPOSITORY TYPE CODE TESTS RESULT OUT OF REFERENCE UNITS RANGE LAB ANEU(LOINC) 2.85-6.16 10 3/mcL High Neutrophil, 13.80 Absolute Performed By: #### BMP, GFR, A1C, CBC, ADIFF, ANEU #### [facility] [place] [address] [place], [place] [address] CHEST PA AND LATERAL Observed: 12/30/2017 Status: F Source: [facility] 3:29 PM [facility] Imaging Services [address] [place] [address] Chest PA and Lateral MR#: [id number] Acct: [id number] Name: SUGEY LING Rep #: [id number] : 1950 F 67 From: Anam Larios MD PCP: Veronica Hassan DO Status: REG CLI Study: Chest PA and Lateral Date of Exam: 12/30/17 Exam# [id number] Ordering Dr: Octavio Delgado MD STUDY: X-RAY [...] Anam Larios MD at 12:54 EST Tel [phone], Service support , CC: Veronica Hassan DO; Octavio Delgado MD Chisel Worker: Signed Observed: 12/24/2017 Status: F Source: [facility] CULTURE, SPUTUM 12:00 PM [facility] PER ORDER, SPUTUM SMEAR/CULTURE FUNGAS Gram Stain Acceptable Specimen? Yes (<25 Epithelial cells per/lpf) Gram Stain 1+ White Blood Cells 1+ Epithelial cells 1+ Gram positive cocci Resp. Culture Mixed normal respiratory hermelindo. No Haemophilus, Streptococcus pneumoniae, beta-hemolytic Streptococcus or Staphylococcus aureus isolated. Performed By: #### M100.0800 #### [facility] [place], [address] Observed: 12/24/2017 Status: F Source: ATIF CULTURE, FUNGUS 8482 12:00 PM [facility] [place] ORDER, SPUTUM SMEAR/CULTURE FUNGAS Cu,[id number] TESTING PERFORMED AT [facility]. ORIGINAL REPORT ON FILE IN LAB CONTAINS ADDITIONAL TEST SITE INFORMATION. CUF Positive Fungus Culture ORGANISM 1: Yana albicans Amount Growth Growth Performed By: #### M600.2000 #### [facility] [place], [address] BNP,B-TYPE NATRIURETIC Collected: 12/23/2017 Status: F Source: ATIF PEPTIDE 1:49 PM [facility] [place] CODE TESTS RESULT OUT OF RANGE REFERENCE UNITS LAB L503.6620 0-100 pg/mL Normal B-TYPE 41.7 EB PEP Performed By: #### L503.6620 #### [facility] [address] [facility] [place], [address] ALLERGIES ALLERGIES DATE TYPE / CODE NAME / CODE REACTION SEVERITY SOURCE 05/11/20 Drug amoxicillin Nausea Unknown [place] 18 Allergy/623902129 trihydrate/B966041680( Community (SNOMED CT) RXNORM) Hospital Repository 05/11/20 Drug potassium Nausea Unknown Atif 18 Allergy/196913967 clavulanate/[id number] [facility] (SNOMED CT) (RXNORM) Hospital Repository 05/11/20 Drug morphine/J817213371(RX Rash Unknown [place] 18 Allergy/579947597 NORM) [facility] (SNOMED CT) Hospital Repository 05/11/20 Drug clindamycin/Q116339200 Rash Unknown Atif 18 Allergy/779526778 (RXNORM) [facility] (SNOMED CT) Hospital Repository 05/11/20 Drug ciprofloxacin/J2825349 Upset PA [place] 18 Allergy/558685441 82(RXNORM) Stomach [facility] (SNOMED CT) Hospital Repository 05/20/20 DRUG/338209990(SN AMOXICILLIN-POT [place] [address]) CLAVULANATE Three Repository 05/20/20 DRUG CLINDAMYCIN [place] [address] INGREDI/855771704 Three (SNOMED CT) Repository 05/20/20 DRUG MORPHINE [place] [address] INGREDI/986133652 Three (SNOMED CT) Repository 05/20/20 DRUG HYDROXYCHLOROQUINE [place] [address] INGREDI/695058717 Three (SNOMED CT) Repository Drug CLINDAMYCIN/20746426(R U Raji Pomerene Allergy/370039209 XNORM) [facility] (OMED CT) [facility] Repository Drug ALLOPURINOL/53287641(R U Raji Pomerene Allergy/466130016 XNORM) [facility] (SNOMED CT) [facility] Repository Drug MORPHINE/72057044(RXNO U Raji Pomerene Allergy/273197858 RM) [facility] (SNOMED CT) [facility] Repository Drug AUGMENTIN/07071202(RXN RASH U Raji Pomerene Allergy/046212091 ORM) [facility] (SNOMED CT) [facility] Repository Drug BACTRIM/14309032(RXNOR U Raji Pomerene Allergy/421767695 M) [facility] (SNOMED CT) [facility] Repository Drug PLAQUENIL/39690466(RXN U Raji Pomerene Allergy/545439043 ORM) [facility] (SNOMED CT) [facility] Repository Environmental 04/19/18 (+) MRSA U Raji Pomerene Allergy/972556749 [facility] Repository ENCOUNTERS ENCOUNTERS ADMIT/DISCHARGE ACCOUNT NUMBER ADMITTING ENCOUNTER LOCATION SOURCE CLASS 12/22/2018 [id number] Ambulatory Building:[facility] OHIP Practices Repository 12/03/2018 [id number] [facility] ding:PT Repository 11/11/2018 [id number] [facility] ding:LABSPEC Repository 10/26/2018 [id number] [facility] ding:RAD Repository 10/04/2018 [id number] [facility] ding:MTLAB Repository 09/16/2018/09/16/20 [id number] TAINALUANA Ambulatory [address] Repository 07/19/2018/07/20/20 [id number] JESSICA, Inpatient Buildin Raji [address] Encounter Room: [address] [place] [address] Repository 07/07/2018/07/07/20 [id number] JESSICA Ambulatory Raji [place] [facility] Repository 06/03/2018/06/03/20 [id number] JESSICA Ambulatory Raji [address] Repository 05/20/2018 [id number] [facility] ding:OPBI Repository 05/11/2018/05/11/20 [id number] Ambulatory BMSBuilding: [address] Repository 05/10/2018 [id number] Ambulatory [facility] ding:HHLAB Repository 04/22/2018/04/29/20 [id number] Ambulatory [address] ding:HHLAB Repository 04/19/2018/04/20/20 [id number] JESSICA, Inpatient Buildin Raji [address] Encounter Room: [address] [place] [address] Repository 04/07/2018/04/07/20 [id number] JESSICA Ambulatory Raji [facility] Repository 04/01/2018 [id number] Ambulatory [facility] ding:LAB Repository 03/29/2018 [id number] Ambulatory [facility] ding:MTLAB Repository 01/29/2018 [id number] Ambulatory [facility] ding:RAD Repository 01/13/2018/01/13/20 [id number] Ambulatory Building:[address] Repository 01/08/2018/01/08/20 [id number] Ambulatory [address] ding:EN Repository 01/06/2018/01/06/20 [id number] Ambulatory [address] ding:OPRS Foundation Repository 12/30/2017 [id number] Ambulatory [facility] ding:HPRAD Repository 12/24/2017 [id number] [facility] ding:LABSPEC Repository 12/23/2017 [id number] [facility] ding:MTLAB Repository 12/23/2017 [id number] [facility] ding:LAB.FUT Repository URE FUNCTIONAL STATUS FUNCTIONAL STATUS No Functional Status Records FoundEQUIPMENT EQUIPMENT No Equipment Records FoundPAYERS PAYERS ENCOUNTER GUARANTOR PAYER SUBSCRIBER SOURCE 12/22/2018 Sugey Beltran Primary Sugey Beltran SmailDOB: [place] Practices SmailDOB: Insurance:MedicarePoli [id number] Repository cy Number: [id number] [address] Stitamis IQ70Oshhrpkqc [place], [place] Date:3495-64-04Hrcm [address]Nia: [phone]: (138) Name:TIE FASTENER [phone] () [phone] [address], [place] ()Tel: [phone]: [phone] 12/22/2018 Secondary Sugey HongilDOB: [place]IP Practices Insurance: FOR [id number] Repository [facility] W[facility]/MCARE Stibbs CROSSOVERPolicy [place], [place] Number: [id number]: (401) [id number] [phone] () Date:3912-99-66Qexy Name:[facility] Pamela [address] [address]DI: 12/03/2018 SUGEY A [id number] Primary SUGEY A SMAILDOB: Ashuel[place] STIBBS Insurance:MEDICARE [id number] PART A BPolicy Number: Hospital [address]59[address]Ivg: 330 [id number] Repository [phone] () Date:2012-08-30 12/03/2018 Secondary CORNELIA Mishra Atif Insurance:WPS SMAILDOB: Community FOR LIFEPolicy Number: [id number] Hospital [id number] Repository Date:7953-66-57RC [facility] [address]90[place] [address]UG: 12/03/2018 Tertiary NOT GIVENUNK Atif Insurance:SELF PAY Community [facility] Number: Effective Repository Date:2018-11-19 11/11/2018 SUGEY A [id number] Primary SUGEY A SMAILDOB: Atif [place] Insurance:MEDICARE [id number] PART A BPolicy Number: Hospital [address]Hgf: 330 [id number] Repository [phone] () Date:2018-11-11 11/11/2018 Secondary CORNELIA K [place] Insurance:WPS SMAILDOB: Community FOR LIFEPolicy Number: [id number] Hospital [id number] Repository Date:2977-49-18HX [facility] [place] [address]RR: 11/11/2018 Tertiary NOT GIVENUNK [place] Insurance:SELF PAY Community [facility] Number: Effective Repository Date:2018-11-11 10/26/2018 SUGEY A [id number] Primary SUGEY A SMAILDOB: Atif [place] Insurance:MEDICARE [id number][place] PART A BPolicy Number: Hospital [id number]: 330 [id number] Repository [phone] () Date:2018-10-26 10/26/2018 Secondary CORNELIA Mishra Atif Insurance:WPS SMAILDOB: [facility] Number: [id number] Hospital [id number] Repository Date:8467-79-83VF [address], [place] [address]EY: 10/26/2018 Tertiary NOT GIVENUNK Atif Insurance:SELF PAY [facility] Number: Effective Repository Date:2018-10-26 10/04/2018 SUGEY Beltran [id number] Primary SUGEY A SMAILDOB: Atif [place] Insurance:MEDICARE [id number] PART A BPolicy Number: [facility] [address]Ben: (774) [id number] [facility] [phone] () Date:2018-10-04 10/04/2018 Secondary CORNELIA Mishra Atif Insurance:WPS SMAILDOB: [facility] Number: [id number] Hospital [id number] Repository Date:6909-85-19ZH [address], [place] [address]SK: 10/04/2018 Tertiary NOT GIVENUNK [place] Insurance:SELF PAY [facility] Number: Effective Repository Date:2018-10-04 09/16/2018 SUGEY A Primary Insurance:500 SUGEY A SMAILDOB: Raji Reyesne SMAILDOB: MEDICARE [id number] [facility] [place] Number: [address], [place] [id number] [place] [phone]: 330) Date:Plan Name: [phone] () 09/16/2018 Secondary CORNELIA K Raji Martin Insurance: FOR SMAILDOB: [facility] [id number] Hospital Number: BOX Repository [id number] [address], Date:Plan Name:[facility] [id number] 07/19/2018 SUGEY A Primary SUGEY A SMAILDOB: Raji Pomerene SMAILDOB: Insurance:MEDICARE [id number] [facility] ST[place]BS Number: [address], Repository [facility] [id number] [place] [phone]: ([phone]) Date:Plan Name: [phone] () 07/19/2018 Secondary CORNELIA Tad Raji Salcharles Insurance: FOR SMAILDOB: [facility] [id number] Hospital Number: BOX Repository [id number] [address], Date: [place] [id number] 07/07/2018 SUGEY A Primary Insurance:500 SUGEY A SMAILDOB: Raji Martin SMAILDOB: MEDICARE [id number] [facility] [place] Number: [place] Repository [facility], [place] [phone]: (330) Date:Plan Name: [phone] () 07/07/2018 Secondary CORNELIA Martin Insurance: FOR SMAILDOB: [facility] [id number] Hospital Number: BOX Repository [id number] [address], Date: [place] [phone] 06/03/2018 SUGEY A Primary Insurance:500 SUGEY A SMAILDOB: Raji Martin SMAILDOB: MEDICARE [id number] [facility] [place] Number: [place] Repository [facility] [phone]: ([phone]) Date:Plan Name: [phone] () 06/03/2018 Secondary CORNELIA Tad Raji Salcharles Insurance: FOR SMAILDOB: [facility] [id number] Hospital Number: BOX Repository [id number] [address], Date: [place] [id number] 05/20/2018 SUGEY A [id number] Primary SUGEY A SMAILDOB: [facility] Insurance:MEDICARE [id number] PART A BPolicy Number: Hospital [address]Peo: 330 [id number] Repository [phone] () Date:2018-04-09 05/20/2018 Secondary CORNELIA K Atif Insurance:WPS SMAILDOB: Community FOR LIFEPolicy Number: [id number] Hospital [id number] Repository Date:8923-99-29QB [address], [place] [address]CB: 05/20/2018 Tertiary NOT GIVENUNK Atif Insurance:SELF PAY Community [facility] Number: Effective Repository Date:2018-04-09 05/11/2018 SUGEY Beltran [id number] Primary SUGEY A SMAILDOB: [place] Insurance:MEDICARE [id number], [place] PART A BPolicy Number: Hospital 18036Yxr: 330 [id number] Repository [phone] () Date:2018-03-05 05/11/2018 Secondary CORNELIA K Ash[place]ot Insurance:WPS SMAILDOB: Community FOR LIFEPolicy Number: [id number] Hospital [id number] Repository Date:8003-16-64SM [address], [place] [address]PM: 05/11/2018 Tertiary NOT GIVENUNK [place] Insurance:SELF PAY [facility] Number: Effective Repository Date:2018-05-11 05/10/2018 SUGEY Devin [id number] Primary SUGEY A SMAILDOB: [place] Insurance:MEDICARE [id number], [place] PART A BPolicy Number: Hospital [address]Bqn: 330 [id number] Repository [phone] () Date:2018-04-22 05/10/2018 Secondary CORNELIA K Atif Insurance:WPS SMAILDOB: Community FOR LIFEPolicy Number: [id number] Hospital [id number] Repository Date:4728-32-98OF [address], [place] [address]BW: 05/10/2018 Tertiary NOT GIVENUNK Atif Insurance:SELF PAY [facility] Number: Effective Repository Date:2018-04-30 04/22/2018 SUGEY Beltran [id number] Primary SUGEY A SMAILDOB: [place] Insurance:MEDICARE [id number], [place] PART A BPolicy Number: [facility] [address]Bmq: 330) [id number] Repository [phone] () Date:2018-04-22 04/22/2018 Secondary CORNELIA Mishra [place] Insurance:WPS SMAILDOB: [facility] LIFEPoly Number: [id number] Hospital [id number] Repository Date:9685-11-84OV [address], [place] [address]DM: 04/22/2018 Tertiary NOT GIVENUNK Atif Insurance:SELF PAY [facility] Number: Effective Repository Date:2018-04-22 04/19/2018 SUGEY Devin Primary SUGEY Beltran SMAILDOB: Raji Pomerene SMAILDOB: Insurance:MEDICARE [id number] [facility] Hospital STIBBS Number: [place], [place] Repository [place] [id number] [phone]: (330) Date:Plan Name: [phone] () 04/19/2018 Secondary CORNELIA Mishra Raji Martin Insurance: FOR SMAILDOB: [facility] INPATIENTPolicy [id number] Hospital Number: BOX Repository [id number] [address], Date:Plan Name:[facility] [id number] 04/07/2018 SUGEY A Primary Insurance:[facility] SUGEY A SMAILDOB: Raji Pomerene SMAILDOB: MEDICARE [id number] [facility] STIBBS Number: [place] Repository [place] [id number] [phone]: (330) Date:Plan Name: [phone] () 04/07/2018 Secondary CORNELIA Martin Insurance: FOR SMAILDOB: [facility] [id number] Hospital Number: BOX Repository [id number] [address], Date: [place] [phone] 04/01/2018 SUGEY A [id number] Primary SUGEY A SMAILDOB: Atif [place] Insurance:MEDICARE [id number], [place] PART A BPolicy Number: Hospital 56645Pkt: 330 [id number] Repository [phone] () Date:2018-04-01 04/01/2018 Secondary CORNELIA Mishra [place] Insurance:WPS SMAILDOB: [facility] Number: [id number] Hospital [id number] Repository Date:7139-45-33PN [address], [place] [address]HM: 04/01/2018 Tertiary NOT GIVENUNK Atif Insurance:SELF PAY [facility] Hospital Number: Effective Repository Date:2018-04-01 03/29/2018 SUGEY Beltrna [id number] Primary SUGEY A SMAILDOB: Atif [place] Insurance:MEDICARE [id number], [place] PART A BPolicy Number: Hospital 938[address]Rui: 330 [id number] Repository [phone] () Date:2018-03-29 03/29/2018 Secondary CORNELIA Mishra Atif Insurance:WPS SMAILDOB: [facility] Number: [id number] Hospital [id number] Repository Date:2131-90-07KQ [address] [address]KF: 03/29/2018 Tertiary NOT GIVENUNK [place] Insurance:SELF PAY [facility] Hospital Number: Effective Repository Date:2018-03-29 01/29/2018 SUGEY Beltran [id number] Primary SUGEY A SMAILDOB: [place] Insurance:MEDICARE [id number] [place] PART A BPolicy Number: Hospital [address]Waf: (854) [id number] Repository [phone] () Date:2018-01-19 01/29/2018 Secondary CORNELIA Mishra Atif Insurance:WPS SMAILDOB: Community FOR LIFEPolicy Number: [id number] Hospital [id number] Repository Date:5627-39-40CJ [address], [place] [address]IA: 01/29/2018 Tertiary NOT GIVENUNK Atif Insurance:SELF PAY [facility] Hospital Number: Effective Repository Date:2018-01-19 01/13/2018 SUGEY A Primary SUGEY A SMAILDOB: [facility] SMAILDOB: Insurance:MEDICAREPoli [id number] Three Repository cy Number: STIBBS RADHATAMIVandana [id number] [place], [place] Date:1700-38-15PEP J15 31492Zlb: [phone]: (999) PART A CLAIMSPO [phone] (HP) [phone] () [place], [place] [address]VT: 01/13/2018 Secondary SUGEY A SMAILDOB: [facility] Insurance:VAPolicy [id number] Three Repository Number: STIBBS [id number] [place], [place] Date:3668-22-11DW [address]Zyv: (999) [place], [place] [phone] (HP) [address]HL: 01/08/2018 SUGEY A [id number] Primary SUGEY A SMAILDOB: Ashuel[place] Insurance:MEDICARE [id number] [place] PART A BPolicy Number: Hospital 379[address]Jqj: (816) [id number] Repository [phone] (HP) Date:2018-01-07 01/08/2018 Secondary CORNELIA Mishra Ash[place] Insurance:WPS SMAILDOB: [facility] FOR LIFEPolicy Number: [id number] Hospital [id number] Repository Date:9507-98-93SS [address] [address]VE: 01/08/2018 Tertiary NOT GIVENUNK Atif Insurance:SELF PAY [facility] Hospital Number: Effective Repository Date:2018-01-07 01/06/2018 SUGEY A Primary SUGEY A SMAILDOB: [facility] SMAILDOB: Insurance:MEDICARE [id number] [facility] PART BPolicy Number: STIBBS Repository STIBBS [id number] [place] Date:2017-11-04 [address]Llc: [phone] [id number] [id number] [phone] @[facility]ITALel: Name:[facility] ()Tel: (000) [facility] [phone] (WP) (HP)Tel: 000) [address] [place] [address] [phone] (WP) 80092FT: 01/06/2018 Secondary [facility] Insurance: FOR SMAILDOB: [facility] Number: [id number] Repository [id number] STIBBS Date:2017-11-04 [place], [place] 0970-61-97Qpgd [address]Wvn: ([phone]) Name:[facility] [phone]Rohan [place] ()Tel: [phone]: (WP) [phone] 12/30/2017 SUGEY A [id number] Primary SUGEY A SMAILDOB: Atif [place] Insurance:MEDICARE [id number] [place] PART A BPolicy Number: Hospital 605[address]Iay: (300) [id number] Repository [phone] () Date:2017-12-30 12/30/2017 Secondary CORNELIA K Atif Insurance:WPS SMAILDOB: Community FOR LIFEPolicy Number: [id number] [facility] [id number] Repository Date:8126-97-86PF [facility] [address], [place] [address]NK: 12/30/2017 Tertiary NOT GIVENUNK [place] Insurance:SELF PAY Community [facility] Hospital Number: Effective Repository Date:2017-12-30 12/24/2017 SUGEY Beltran [id number] Primary SUGEY A SMAILDOB: Ash[place] Insurance:MEDICARE [id number], [place] PART A BPolicy Number: Hospital 08921Fbp: (204) [id number] Repository [phone] () Date:2017-12-24 12/24/2017 Secondary CORNELIA Mishra [place] Insurance:WPS SMAILDOB: Community FOR LIFEPolicy Number: [id number] [facility] [id number] Repository Date:6010-46-07HJ [address], [place] [address]US: 12/24/2017 Tertiary NOT GIVENUNK [place] Insurance:SELF PAY Community [facility] Hospital Number: Effective Repository Date:2017-12-24 12/23/2017 SUGEY Beltran [id number] Primary SUGEY A SMAILDOB: Ashuel[place] Insurance:MEDICARE [id number], [place] PART A BPolicy Number: Hospital 15111Dhd: (746) [id number] Repository [phone] () Date:2017-12-23 12/23/2017 Secondary SUGEY A SMAILDOB: Atif Insurance:WPS [id number] [facility] FOR LIFEPolicy Number: Hospital [id number] Repository Date:5833-47-30NH [address], [place] [address]HS: 12/23/2017 Tertiary NOT GIVENUNK Atif Insurance:SELF PAY Community [facility] Hospital Number: Effective Repository Date:2017-12-23 12/23/2017 SUGEY A [id number] Primary SUGEY A SMAILDOB: Atif [place] Insurance:MEDICARE [id number], [place] PART A BPolicy Number: [facility] 235[address]Whu: (211) [id number] Repository [phone] () Date:2017-12-23 12/23/2017 Secondary CORNELIA Buitragooster Insurance:WPS SMAILDOB: [facility] Number: [id number] [facility] [id number] Repository Date:6801-83-74KY [address] [place] [address]IQ: 12/23/2017 Tertiary NOT GIVENUNK [place] Insurance:SELF PAY [facility] Number: Effective Repository Date:2017-12-24 SOCIAL HISTORY SOCIAL HISTORY No Social History Records FoundFAMILY HISTORY FAMILY HISTORY No Family History Records FoundADVANCE DIRECTIVES ADVANCE DIRECTIVES No Advanced Directives Records FoundINFORMATION SOURCE INFORMATION SOURCE DATE CREATED AUTHOR AUTHOR'S ORGANIZATION 12/22/2018 YADIEL
== END ==
PROVIDERS: Family Provider Internal Medicine; PCP Internal Medicine; Referring Provider Internal Medicine; Visit Provider Internal Medicine
DX: I12.9 Hypertensive chronic kidney disease with stage 1 through stage 4 chronic kidney disease, or unspecified chronic kidney disease (principal); N18.9 Chronic kidney disease, unspecified
CPT/HCPCS: 80048

== ENCOUNTER 2018-12-03 13:30 | Outpatient (RCR) | payer MEDICARE, OTHER, SELFPAY ==
--- NOTE | 2018-11-19 13:31 | HP.PTEVAL_ITS ---
Patient's Visit Information WALLACE BAZAN is a 67 year old F referred to Physical Therapy by Rakel Van with a diagnosis of UNSTABEL GAIT. KNEE AND SPINAL SURGERIES.. Date of Evaluation: 11/19/18 Physical Therapist: Jordyn Humphries PT, Cert MDT - Visit Plan Frequency: 2-3x /Week Duration: 4-6 Weeks Plan: AQUATIC THERAPY FOR PAIN RELEIF, POSTURE CORRECTION/STRENGTHENING, INSTRUCTION IN APPROPRIATE BODY MECHANICS AND ACTIVITY MODIFICATIONS. DLS STARTING WITH A NEUTRAL SPINE PROGRESSING ROM TOLERATED. ORAL LE ROM, STRETCHING AND STRENGTHENING. HEP INSTRUCTION. - Subjective Findings: Work/Leisure: RETIRED. Disability: ON [employer] FOR ABOUT A YEAR BEFORE GOING ON MEDICARE FOR HER BACK. Present symptoms: PATIENT REPORTS THE MAIN REASON SHE IS HERE IS FOR HER LOW BACK PAIN THAT GOES INTO HER RIGHT HIP AND THIGH. SHE ALSO REPORTS SHE HAS PAIN AROUND HER RIGHT KNEE. SHE ALSO REPORTS SHE IS STILL CONCERNED ABOUT THE BALANCE PROBLEMS THAT HAVE INCREASED SINCE HER KNEE SURGERY BUT HAVE BEEN THERE SINCE HER SECOND BACK SURGERY. Present since: CHRONIC BACK PAIN BUT LAST THURSDAY DECIDED TO TRY TO TOUCH HER TOES AND CAUSED INCREASED RIGHT BACK AND LE SX'S. Pain Scale: WORST 5/10, LEAST 3/10. Currently: 3/10. Commenced as a result of: BACK AND KNEE SURGERIES. Symptoms at onset: BACK. Worse: GETTING UP FROM SITTING, GETTING OUT OF BED IN THE MORNING, STANDING TOO LONG, TRYING TO FIX DINNER, WALKING, BENDING, LIFTING. Better: CREAM FROM PAIN DOCTOR FOR BACK, RIGHT HIP, RIGHT THIGH AND KNEE. SHOWER, ICE PACKS, NUSTEP MACHINE, PAIN MEDICINE. Disturbed sleep: YES. Previous history/Previous treatment: 1ST BACK SURGERY WAS ABOUT 10 TO 15 YEARS AGO, 2ND BACK SURGERY WAS ABOUT 5 YEARS AGO BUT PATIENT REALLY ISN'T SURE WHEN HER SURGERIES WERE. RIGHT TKR JUN 2018. LEFT KNEE TKR MARCH 31. RIGHT FOOT RECONSTRUCTION - NOT RECENT. CURRENTLY IN PAIN MGMT WITH DR. SERRANO AND HAS BEEN FOR ABOUT 3 YEARS. LAST LOW BACK AMALIA WAS SEP 2018. PT SEVERAL TIMES IN THE PAST FOR HER BACK AND KNEE. 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 Coughing/sneezing/straining: YES. Gait: HAS BEEN USING A CANE OFF AND ON FOR QUITE A FEW YEARS. USED WALKER AFTER KNEE SURGERY BUT THERAPISTS PROGRESSED HER TO A CANE. NOT USING CANE IN THE HOUSE AND SOMETIMES FALLS INTO THE WALL AT HOME. Difficulty initiating urinatin: NO. Accidents: FALL AT [place] A FEW YEARS AGO AND BROKE LEFT ARM. Unexplained weight loss: NO. Imaging: RECENT LUMBAR X-RAY: FINDINGS: Normal lumbar lordosis. Slight levoscoliosis. There is a normal alignment. of the vertebrae. Stable postsurgical fixation of L4-S1. There is multilevel endplate spondylosis of the lumbar vertebrae. There is. multi-level degenerative disc disease with multi-level disc space. narrowing. There is no demonstrated fracture. The soft tissue structures are unremarkable. RAD/Lumbar Spine 2 or 3 Views. IMPRESSION: Postsurgical and degenerative changes of the lumbar spine; slightly. advanced as compared to 2017 exam. PMH: SEE BELOW - Objective Sitting/Standing Posture: POOR. INCREASED TRUNK FLEXION AND DECREASED LORDOSIS. Active Correction of posture: WORSE. Other Observations: INDEP SLOW ANTALGIC GAIT INTO PT WITH A STRAIGHT CANE AND NO LOB. UNABLE TO SLS MORE THAN A FEW SECONDS ON EACH LEG. DECREASED WEIGHT BEARING TIME ON RIGHT LE WITH GAIT. UNABLE TO TRANSFER FROM SIT TO STAND WITHOUT UE ASSIST WITHOUT INCREASED PAIN. Motor deficit: LEFT LE: HIP FLEX 4/5, KNEE EXT 4/5, KNEE FLEX 4/5 IN AVAILABLE RANGE, ANKLE 5/5. RIGHT LE: HIP FLEX 4-/5, KNEE EXT 4-/5, KNEE FLEX 4-/5 ANKLE 5/5. Sensory deficit: RIGHT THIGH FEELS TINGLY COMPARED TO LEFT. ROM deficit: RIGHT KNEE ROM IN SUPINE WITH A HEEL SLIDE 0 DEG EXT TO 106 DEG FLEX, LEFT KNEE 0 DEG EXT TO 113 DEG FLEX. Lumbar mvmt loss: flex - MOD - NE. ext - MARIA TERESA - INCREASED LBP. R SG - MARIA TERESA - INCRESSED LBP. L SG - MARIA TERESA - INCREASED LBP. Core strength: POOR. Palpation: TENDERNESS WITH LIGHT PALPATION THROUGHOUT THE LUMBAR REGION AND INTO THE RIGHT GREATER TROCH AND LATERAL THIGH REGION TO THE KNEE BUT NOT IN THE RIGHT BUTTOCK REGION. - Goals Goal 1:: DECREASE C/O BACK AND RIGHT LE SX'S Goal Time Frame: 4-6 Weeks Goal 2:: IMPROVE LIFTING, WALKING, SITTING, STANDING, SLEEP, SOCIAL LIFE, TRAVEL AND HOMEMAKING FUNCTION Goal Time Frame: 4-6 Weeks Goal 3:: INSTRUCT IN PROPHYLAXIS Goal Time Frame: 4-6 Weeks - Rehabilitation Potential Rehabilitation Potential: Fair - Anticipated Interventions Patient/Client Instruction: Educate patient on: Condition, Plan of Care, Risk Factors, Benefits of Fitness Program For the Purpose of:: To improve self management Therapeutic Exercise to Include: Strength training, Balance training, Body mechanics, Postural training, Flexibilty training, Gait and locomotor training, In an aquatic setting, Active ROM, Dynamic Lumbar Stabilization For the Purpose of:: To decrease pain, To increase ROM, To improve muscle performance and motor function, To increase tolerance to activity/condition/position, To improve ability of physical actions for home/community/work/leisure, To improve gait and locomotor functions Thank you for the opportunity to evaluate your patient. For Medicare and Medicare HMO plans, please review the plan of care and approve it. It will need to be FAXED BACK to us at [phone] for Medicare purposes. For Medicare only, by signing this I certify the plan of care. Please let me know if there are questions or concerns regarding this plan of care. Physician Signature: Date:____
--- NOTE | 2019-01-27 16:53 | HP.PT.NRP ---
HP - Discharge Summary (1) - Patient Information WALLACE BAZAN was seen in my office for initial evaluation on 11/19/18. The following Plan of Care was established for this patient: Initial Frequency: 2-3x /Week Initial Duration: 4-6 Weeks - Anticipated Interventions Patient/Client Instruction: Educate patient on: Condition, Plan of Care, Risk Factors, Benefits of Fitness Program For the Purpose of:: To improve self management Therapeutic Exercise to Include: Strength training, Balance training, Body mechanics, Postural training, Flexibilty training, Gait and locomotor training, In an aquatic setting, Active ROM, Dynamic Lumbar Stabilization For the Purpose of:: To decrease pain, To increase ROM, To improve muscle performance and motor function, To increase tolerance to activity/condition/position, To improve ability of physical actions for home/community/work/leisure, To improve gait and locomotor functions This patient was last seen in our office 12/03/18. Pertinent comments regarding their Physical therapy will appear below: This patient has not returned to Physical Therapy and is appropriate to return to MD for further follow-up as needed. At this point I will be discontinuing this patient from physical therapy. I would be happy to see this patient again in the future if found appropriate by the physician. Thank you! Jordyn Humphries, PT, Cert MDT
== END 2018-12-03 19:00 | disposition home or self-care (01) ==
LOC: PT 13:30
PROVIDERS: Family Provider Internal Medicine; PCP Internal Medicine; Referring Provider Podiatrist; Visit Provider Podiatrist
DX: R26.81 Unsteadiness on feet (principal); Z98.890 Other specified postprocedural states
CPT/HCPCS: 97113; 97163

== ENCOUNTER → 2018-12-23 13:17 | Outpatient (CLI) | payer MEDICARE, OTHER, SELFPAY ==
--- NOTE | 2018-12-23 13:30 | RAD_ITS ---
STUDY: X-RAY CHEST REASON FOR EXAM: Female, 68 years old. Chronic cough TECHNIQUE: 2 PA and lateral views of the chest. COMPARISON: 12/30/2017 FINDINGS: There are interstitial fibrotic changes of the lungs. There is no demonstrated pleural abnormality. Normal size heart. There are calcified mediastinal lymph nodes. Normal visualized pulmonary arteries. There is atherosclerotic calcification of the aortic arch with tortuosity. There are diffuse degenerative changes of the visualized thoracic spine. Normal visualized ribs, clavicles, and shoulders. There is no demonstrated abnormality of the visualized soft tissue structures of the upper abdomen. RAD/Chest PA and Lateral IMPRESSION: Degenerative changes, as described above. No demonstrated acute cardiopulmonary process. Electronically Signed: Randall Turcios MD at 15:11 EST , Service support ,
== END ==
PROVIDERS: Family Provider Internal Medicine; PCP Internal Medicine; Referring Provider Internal Medicine; Visit Provider Internal Medicine
DX: R05 Cough (principal)
CPT/HCPCS: 71046

== ENCOUNTER 2018-12-30 13:25 | Inpatient (IN) | payer MEDICARE, OTHER, SELFPAY ==
[2018-12-30] VITALS (13 sets, daily range): BP systolic 126–169; BP diastolic 54–67; PULSE 83–115; RESP 18–29; TEMP 37.1–39.5; O2SAT 94–98; BMI 39.6; BMI 39.0
--- NOTE | 2018-12-30 13:28 | RAD_ITS ---
STUDY: X-RAY CHEST REASON FOR EXAM: Female, 68 years old. Increasing shortness of breath. Labored breathing. TECHNIQUE: Single AP portable view of the chest. COMPARISON: Comparison is made with prior study dated December 23, 2018. FINDINGS: EKG electrodes are seen. There are now with evidence of bone new infiltration in the right upper lobe. Stable appearance of the increased markings at the lung bases worse on the left side suggestive of scarring. Scattered calcified granulomas. There is no demonstrated pleural abnormality. Normal size heart. Normal mediastinum and arthur. Normal visualized pulmonary arteries. There is atherosclerotic calcification of the aortic arch with tortuosity. There are diffuse degenerative changes of the visualized thoracic spine. Normal visualized ribs, clavicles, and shoulders. There is no demonstrated abnormality of the visualized soft tissue structures of the upper abdomen. RAD/Chest 1 View (Portable) IMPRESSION: New right upper lobe infiltrate. Stable scarring in both lungs. Electronically Signed: Anam Larios MD at 14:44 EST , Service support ,
--- NOTE | 2018-12-30 13:28 | EKG12_ITS ---
Test Reason : SOB Blood Pressure : / mmHG Vent. Rate : 100 BPM Atrial Rate : 100 BPM P-R Int : 144 ms QRS Dur : 150 ms QT Int : 412 ms P-R-T Axes : 057 114 032 degrees QTc Int : 531 ms Normal sinus rhythm Right bundle branch block Septal infarct , age undetermined Abnormal ECG Confirmed by IRA FELIX, KEREN ([id number]), editor in chief YAEL LOPEZ (56) on 01/04/2019 8:39:30 AM Referred By: Veronica Oquendo Confirmed By:KEREN ROTH MD
--- NOTE | 2018-12-30 13:37 | ED.VISSUMM ---
- ER Visit Summary Date of Service: 12/30/18 Chief Complaint: [] Shortness of breath harsh cough fatigue for weeks History of Present Illness: The patient is a 68 F []hx of COPD reports a week or 2 ago she developed a harsh cough body aches she was seen by her physician started on Augmentin prednisone reports some improvement and then she indicates she use a CPAP device daily because her cough to get worse she is on oxygen at night only and uses a CPAP at times. She has no history of [place] PE or DVT she has had normal bowel bladder habits she was seen by her physicians today and had a low pulse ox of 85% on room air and she was sent in for evaluation Physical Examination: [] Pulse ox as above, she is afebrile her blood pressure is 138/90 General, no distress resting comfortably HEENT is generally unremarkable she has a harsh Cough and some vibrations in her upper area when she coughs but no stridor or drooling The neck is supple no adenopathy Cardiovascular, regular rate and rhythm Lungs, usually diminished with rhonchi Abdomen, soft nontender Extremities, no clubbing cyanosis or edema Neurologic, awake alert answering questions appropriately moving all 4 extremities Test Results: [] Emergency Department Course and Treatment: [] Awake and alert no signs of cardiopulmonary distress or failure she is complaining of diffuse whole body fatigue due to the harsh coughing poor p.o. intake, on 2 L here her pulse ox is 96% at this time she will receive therapy IV fluids antibiotics aerosols screening labs and likely admission given her failure of outpatient therapy Treatment Plan: [] His white count is 22,000, the chest x-ray shows right upper lobe infiltrate see the remaining screening labs we will have the hospital see her further management Disposition: [] Admit stable Impression: [] Right upper lobe pneumonia, dyspnea with harsh cough, COPD exacerbation, diabetes, failure outpatient therapy This note was generated with [employer] dictation software. It may contain incorrect words, spelling, and punctuation that were not noted in review of the chart prior to signing ED Disposition - Plan for ED Patient: Referrals: Veronica Oquendo DO [Primary Care Provider] -
[2018-12-30] MEDS: Ipratropium/Albuterol Sulfate 3 ML AMPUL.NEB INHALATION ×3 (13:49→22:35)
[2018-12-30] MEDS: Ceftriaxone 1 GM/50 ML BAG IV ×2 (13:50→17:09)
[2018-12-30 13:58] LABS: Hematocrit 40.4 % (37-47); Mean Corp Hgb Conc 32.2 g/gl (32-36); Mean Corpuscular Hgb 30.2 pg (27.0-32.0); Mean Corpuscular Volume 93.7 fL (81-99); Platelet Count 259 K/mm3 (150-450); RBC Distribution Width CV 14.9 % (11.6-14.6); Red Blood Count 4.31 M/mm3 (4.2-5.4); White Blood Count 22.2 K/mm3 (4.4-11.0)
[2018-12-30 13:59] LABS: Differential Indicated MANUAL DIFF; POSITIVE COUNT NO; POSITIVE DIFFERENTIAL YES; POSITIVE MORPHOLOGY YES
--- NOTE | 2018-12-30 14:05 | ED.RN ---
Dr. Vela states no lactic or blood cultures ordered, confirmed prior to administration of antibiotics.
[2018-12-30 14:10] LABS: Anion Gap 13 (5-15); BUN 51 mg/dL (7-18); BUN/Creat Ratio 20.7 RATIO (10-20); Calcium,Total 9.4 mg/dL (8.5-10.1); Chloride 102 mmol/L (98-107); Creatinine, Serum 2.46 mg/dL (0.55-1.02); EST Glomerular Filtration Rate 21 mL/min (>60); Est Glom Filt Rate - Afr Amer 25 mL/min (>60); Estimated Creatinine Clearance 15.72 ml/min; Glucose 183 mg/dL (74-106); Potassium 4.4 mmol/L (3.5-5.1); Sodium Level 135 mmol/L (136-145)
[2018-12-30 14:17] LABS: Lymphocyte 7 % (19-41); Metamyelocyte 1 % (0-1); Monocyte 12 % (0-10); Neutrophil-Band 3 % (0-5); Neutrophil-Segmented 77 % (47-70); Total Cells Counted 100 (MANUAL DIFF)
[2018-12-30 14:18] LABS: Platelet Estimate ADEQUATE (ADEQ); Red Cell Morphology NORM C+C NORMAL (NORM C&C)
[2018-12-30 14:19] LABS: Absolute Lymphocyte Count 1.55 X10^3/ul (0.83-4.51); Absolute Neutrophil Count 17.8 X10^3/uL (2.0-7.7)
[2018-12-30 14:22] LABS: BNP,B-Type NATRIURETIC PEPTIDE 58.9 pg/mL (0-100)
--- NOTE | 2018-12-30 15:12 | NURSING ---
MED SURG TERJENNIFER RUL PNEUMONIA, FAILED OP THEREAPY
--- NOTE | 2018-12-30 17:04 | PCM.HP.STD ---
Problem List (1) Shortness of breath Status: Acute History of Present Illness Date of Admission: 12/30/18 Chief Complaint: Shortness of breath The patient is a 68 year old F who was seen in the emergency room at [facility] with a chief complaint of increasing shortness of breath over the last 2 days. Patient has also stated that she has been coughing up yellow and green sputum, she denied any chills or fever. Patient denied any hemoptysis. Patient has a history of COPD and is supposed to be on CPAP which she does not wear on a regular basis. Patient is on home O2 at night at 2 L. Workup in the emergency room included labs which showed an elevated white blood cell count at 22.2-however, the patient had been on prednisone starting earlier this week from her PCP. Patient's chemistry panel was remarkable for a BUN of 51 and a creatinine of 2.46, patient's glucose was elevated at 183. Chest x-ray showed scar tissue in both lungs and a right upper lobe infiltrate. Patient was afebrile in the emergency room and her pulse ox on 3 L was 97%. Patient will be admitted for acute exacerbation of COPD and right upper lobe community-acquired pneumonia, she will receive aerosol treatments and IV corticosteroids, she will remain on Rocephin and Zithromax which was started in the emergency room. I do not believe the patient is septic, again, I believe the patient's elevated white blood cell count is reflection of the fact she is currently on prednisone Past Medical History Past Medical History (Chronic Problems): Chronic Problems On home O2 (Chronic) Sarcoidosis (Chronic) Type 2 diabetes mellitus (Chronic) Chronic obstructive lung disease (Chronic) mild Hyperlipidemia (Chronic) CKD (chronic kidney disease), stage II (Chronic) Benign hypertension (Chronic) Allergies clindamycin Allergy (Verified 12/30/18 13:42) Rash ciprofloxacin Adverse Reaction (Mild, Verified 12/30/18 13:42) Upset Stomach amoxicillin trihydrate [From Augmentin] Adverse Reaction (Verified 12/30/18 13:42) Nausea morphine Adverse Reaction (Verified 12/30/18 13:43) Nausea potassium clavulanate [From Augmentin] Adverse Reaction (Verified 12/30/18 13:42) Nausea Home Medications: Ambulatory Orders Medication Instructions Recorded Albuterol Aerosols [Ventolin 2.5 mg INHALATION Q6H PRN PRN 07/07/14 Aerosols] Fenofibric Acid (Choline) 135 mg PO DAILY 07/07/14 [Trilipix] Lactobacillus Combination No.4 1 each PO DAILY 07/07/14 [Probiotic] Loratadine [Claritin] 10 mg PO DAILY 07/07/14 Losartan Potassium [Cozaar] 50 mg PO DAILY 07/07/14 Montelukast [Singulair] 10 mg PO QHS 07/07/14 Alendronate Sodium [Fosamax] 70 mg PO MO 06/21/17 Cholecalciferol (Vitamin D3) 1,000 unit PO DAILY 06/21/17 [Vitamin D3] Fluticasone 0.05% [Flonase Nasal 1 spray NASAL DAILY PRN PRN 06/21/17 [place]] Fluticasone/Salmeterol [Advair 1 puff INHALATION BID 06/21/17 500/50 Mcg Diskus] Insulin Detemir [Levemir (BKC)] 30 units SC QHS 06/21/17 [place]-3S/Dha/Epa/Fish Oil [Fish 1 each PO DAILY 06/21/17 Oil 1,200 mg Softgel] Pantoprazole Sodium [Protonix] 40 mg PO DAILY 06/21/17 Tiotropium [place] [Spiriva 2 puff IH DAILY 06/21/17 Respimat] Albuterol Inhaler [Ventolin Hfa 1 - 2 puff INHALATION Q4H PRN PRN 12/04/17 (SP)] Sour Scott Extract [Tart Scott 1,000 mg PO DAILY 01/07/18 Extract] Amoxicillin/Potassium Clav 1 tab PO BID 12/30/18 [Amox-Clav 875-125 mg Tablet] Aspirin [Aspirin, Baby] 81 mg PO DAILY 12/30/18 Febuxostat [Uloric] 40 mg PO DAILY 12/30/18 Prednisone See Taper PO DAILY 12/30/18 Sitagliptin Phosphate [Januvia] 50 mg PO DAILY 12/30/18 Triamterene 37.5MG/Hctz 25MG 1 tablet PO DAILY 12/30/18 [Maxzide 37.5 mg-25 mg Tablet] Surgical History: cholecystectomy, hysterectomy, total knee arthroplasty, - - Lumbar back surgery, foot surgery, Psychiatric History: 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 Denies: Anorexia, Chills, Fever, Night Sweats, Malaise, Weakness, Weight Change Eyes: Denies: Cataracts, Conjunctivae Inflammation, Double vision, Drainage HEENT: Denies: Difficulty Swallowing, Dysphasia, Ear Pain, Eye Pain, Hearing Changes, Nasal bleeding, Nasal Congestion, Post Nasal Drip Cardiovascular: Denies: Chest Pain, Claudication, Chest Pressure, Chest Tightness, Edema, Heaviness, Palpitations Respiratory: Reports: Cough, Shortness of Breath, Shortness of breath at rest, Shortness of breath upon exertion, Sputum production. Denies: Hemoptysis Gastrointestinal: Denies: Abdominal Pain, Constipation, Diarrhea, Hematemesis, Hematochezia, Nausea, Melena, Vomiting Genitourinary: Denies: Dysuria, Frequency, Hematuria, Hesitancy, Urgency Gynecological: Denies: Breast symptoms Musculoskeletal: Denies: Foot Pain, Hand Pain, Joint Pain, Joint stiffness, Joint swelling Skin: Denies: Dryness, Pruritis, Rash Neurological: Denies: Blurred vision, Double vision, Change in Speech, Slurred speech, Difficulty swallowing, Focal weakness, Headaches, Incoordination, Numbness, Tingling Psychiatric: Denies: Anxiety, Depression, Homicidal Ideations, Suicidal Ideations Endocrine: Denies: Change in Body Habitus, Heat/ Cold Intolerance, Polydipsia, Polyuria Hematologic/ Lymphatic: Denies: Adenopathy, Anemia, Easy Bruising, Easy Bleeding, Petechiae, Purpura VTE Information - Inpt Only VTE Present on Admission: No VTE Mechan Device Prophylaxis: None VTE Pharm Prophylaxis ordered?: Yes Patient Problems: Active and Suspected Problems Shortness of breath (Acute) - Physical Exam General: Alert, Oriented x3, Cooperative, No apparent distress, Well developed, Well nourished HEENT: Atraumatic, PERRLA, EOMI, Normocephalic Oral: Moist Mucosa Neck: Supple, No JVD, Negative Carotid Bruits, No Nuchal Rigidity, Trachea Midline, Thyroid Normal Size and Texture Lungs: No wheeze, No rales, Diminished, Rhonchi - Scattered expiratory rhonchi are noted bilaterally Cardiovascular: Regular rate, Regular Rhythm, Normal S1, Normal S2, No murmurs, No Ectopic Activity, PMI Normal, No rub noted, No Gallop Abdomen: Bowel Sounds Present, Soft, Non Tender, Non-Distended, Obese, No hernias noted Extremities: No clubbing, No cyanosis, No edema, Capillary Refill Less than 3 Seconds Skin: No rashes, No breakdown Musculoskeletal: No Tenderness to Palpation of Joints or Extremities Neurological: Cranial nerves II-XII grossly intact, Neuro grossly intact, Sensory exam intact to light touch and pain, Coordination normal Psych/Mental Status: Normal Affect, Appropriate, Alert and oriented to time, place, person, mood and affect Vital Signs Temp Pulse Resp BP Pulse Ox 99.0 F 83 24 H 144/65 H 98 12/30/18 16:39 12/30/18 16:39 12/30/18 16:39 12/30/18 16:39 12/30/18 16:39 Oxygen Flow Rate (L/min) 3 Oxygen Delivery Method Nasal Cannula Weight: 90.718 kg Body Mass Index (BMI) 39.0 Laboratory Tests Past 24 Hrs 12/30/18 12/30/18 12/30/18 13:45 13:45 13:45 WBC 22.2 H RBC 4.31 Hgb 13.0 Hct 40.4 MCV 93.7 MCH 30.2 MCHC 32.2 RDW 14.9 H RDW Differential 51.0 H Plt Count 259 MPV 10.0 Neut % (Auto) Not Reportable Absolute Neuts (auto) 17.8 H Absolute Lymphs (auto) 1.55 Total Counted 100 Neutrophils % (Manual) 77 H Band Neutrophils % 3 Lymphocytes % (Manual) 7 L Monocytes % (Manual) 12 H Metamyelocytes % 1 Diff Path Review May foll Platelet Estimate ADEQUATE RBC Morphology NORM C+C Sodium 135 L Potassium 4.4 Chloride 102 Carbon Dioxide 20.0 L Anion Gap 13 BUN 51 H Creatinine 2.46 H Estim Creat Clear Calc 15.72 Est GFR (MDRD) Af Amer 25 L Est GFR (MDRD) Non-Af 21 L BUN/Creatinine Ratio 20.7 H Glucose 183 H Calcium 9.4 Troponin I 0.018 B-Natriuretic Peptide 58.9 Assessment/Plan All Active Problems Shortness of breath (Acute) Recurrent aspiration pneumonia (Resolved) Chest pressure (Resolved) Vertigo (Resolved) #1 acute exacerbation of COPD-patient will be admitted [facility], she will be placed on aerosol treatments, IV Solu-Medrol, and her pulse ox will be monitored. #2 right upper lobe community-acquired pneumonia-suspect gram-positive bacterial, sputum culture will be obtained, patient was placed on IV Rocephin and Zithromax, chest x-ray will be repeated tomorrow #3 chronic hypoxic respiratory failure-patient is currently on 3 L oxygen #4 type 2 diabetes-patient's blood sugars will be monitored and sliding scale insulin will be administered #5 pulmonary fibrosis #6 chronic kidney disease stage IV secondary to type 2 diabetes-patient's creatinine is elevated over her baseline creatinine, patient will be given IV fluids and her BMP will be rechecked tomorrow #7 hyperlipidemia #8 hypertension Patient has not had a CT of her chest here at the hospital, she states that her last CT of her chest was done at [facility] several years ago. I will order a noncontrasted chest CT due to her history of pulmonary fibrosis. Code Visit Inpatient E&M: 01454 Init Hosp L3
--- NOTE | 2018-12-30 17:09 | HP.PCM_ITS ---
Problem List (1) Shortness of breath Status: Acute History of Present Illness Date of Admission: 12/30/18 Chief Complaint: Shortness of breath The patient is a 68 year old F who was seen in the emergency room at [facility] with a chief complaint of increasing shortness of breath over the last 2 days. Patient has also stated that she has been coughing up yellow and green sputum, she denied any chills or fever. Patient denied any hemop tysis. Patient has a history of COPD and is supposed to be on CPAP which she does not wear on a regular basis. Patient is on home O2 at night at 2 L. Workup in the emergency room included labs which showed an elevated white blood cell count at 22.2-however, the patient had been on prednisone starting earlier this week from her PCP. Patient's chemistry panel was remarkable for a BUN of 51 and a creatinine of 2.46, patient's glucose was elevated at 183. Chest x-ray showed scar tissue in both lungs and a right upper lobe infiltrate. Patient was afebrile in the emergency room and her pulse ox on 3 L was 97%. Patient will be admitted for acute exacerbation of COPD and right upper lobe community-acquired pneumonia, she will receive aerosol treatments and IV corticosteroids, she will remain on Rocephin and Zithromax which was started in the emergency room. I do not believe the patient is septic, again, I believe the patient's elevated white blood cell count is reflection of the fact she is currently on prednisone Past Medical History Past Medical History (Chronic Problems): Chronic Problems On home O2 (Chronic) Sarcoidosis (Chronic) Type 2 diabetes mellitus (Chronic) Chronic obstructive lung disease (Chronic) mild Hyperlipidemia (Chronic) CKD (chronic kidney disease), stage II (Chronic) Benign hypertension (Chronic) Allergies clindamycin Allergy (Verified 12/30/18 13:42) Rash ciprofloxacin Adverse Reaction (Mild, Verified 12/30/18 13:42) Upset Stomach amoxicillin trihydrate [From Augmentin] Adverse Reaction (Verified 12/30/18 13:42) Nausea morphine Adverse Reaction (Verified 12/30/18 13:43) Nausea potassium clavulanate [From Augmentin] Adverse Reaction (Verified 12/30/18 13:42) Nausea Home Medications: Ambulatory Orders Medication Instructions Recorded Albuterol Aerosols [Ventolin 2.5 mg INHALATION Q6H PRN PRN 07/07/14 Aerosols] Fenofibric Acid (Choline) 135 mg PO DAILY 07/07/14 [Trilipix] Lactobacillus Combination No.4 1 each PO DAILY 07/07/14 [Probiotic] Loratadine [Claritin] 10 mg PO DAILY 07/07/14 Losartan Potassium [Cozaar] 50 mg PO DAILY 07/07/14 Montelukast [Singulair] 10 mg PO QHS 07/07/14 Alendronate Sodium [Fosamax] 70 mg PO MO 06/21/17 Cholecalciferol (Vitamin D3) 1,000 unit PO DAILY 06/21/17 [Vitamin D3] Fluticasone 0.05% [Flonase Nasal 1 spray NASAL DAILY PRN PRN 06/21/17 [place]] Fluticasone/Salmeterol [Advair 1 puff INHALATION BID 06/21/17 500/50 Mcg Diskus] Insulin Detemir [Levemir (BKC)] 30 units SC QHS 06/21/17 [place]-3S/Dha/Epa/Fish Oil [Fish 1 each PO DAILY 06/21/17 Oil 1,200 mg Softgel] Pantoprazole Sodium [Protonix] 40 mg PO DAILY 06/21/17 Tiotropium [place] [Spiriva 2 puff IH DAILY 06/21/17 Respimat] Albuterol Inhaler [Ventolin Hfa 1 - 2 puff INHALATION Q4H PRN PRN 12/04/17 (SP)] Sour Scott Extract [Tart [place] 1,000 mg PO DAILY 01/07/18 Extract] Amoxicillin/Potassium Clav 1 tab PO BID 12/30/18 [Amox-Clav 875-125 mg Tablet] Aspirin [Aspirin, Baby] 81 mg PO DAILY 12/30/18 Febuxostat [Uloric] 40 mg PO DAILY 12/30/18 Prednisone See Taper PO DAILY 12/30/18 Sitagliptin Phosphate [Januvia] 50 mg PO DAILY 12/30/18 Triamterene 37.5MG/Hctz 25MG 1 tablet PO DAILY 12/30/18 [Maxzide 37.5 mg-25 mg Tablet] Surgical History: cholecystectomy, hysterectomy, total knee arthroplasty, - - Lumbar back surgery, foot surgery, Psychiatric History: No 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 Denies: Anorexia, Chills, Fever, Night Sweats, Malaise, Weakness, Weight Change Eyes: Denies: Cataracts, Conjunctivae Inflammation, Double vision, Drainage HEENT: Denies: Difficulty Swallowing, Dysphasia, Ear Pain, Eye Pain, Hearing Changes, Nasal bleeding, Nasal Congestion, Post Nasal Drip Cardiovascular: Denies: Chest Pain, Claudication, Chest Pressure, Chest Tightness, Edema, Heaviness, Palpitations Respiratory: Reports: Cough, Shortness of Breath, Shortness of breath at rest, Shortness of breath upon exertion, Sputum production. Denies: Hemoptysis Gastrointestinal: Denies: Abdominal Pain, Constipation, Diarrhea, Hematemesis, Hematochezia, Nausea, Melena, Vomiting Genitourinary: Denies: Dysuria, Frequency, Hematuria, Hesitancy, Urgency Gynecological: Denies: Breast symptoms Musculoskeletal: Denies: Foot Pain, Hand Pain, Joint Pain, Joint stiffness, Joint swelling Skin: Denies: Dryness, Pruritis, Rash Neurological: Denies: Blurred vision, Double vision, Change in Speech, Slurred speech, Difficulty swallowing, Focal weakness, Headaches, Incoordination, Numbness, Tingling Psychiatric: Denies: Anxiety, Depression, Homicidal Ideations, Suicidal Ideations Endocrine: Denies: Change in Body Habitus, Heat/ Cold Intolerance, Polydipsia, Polyuria Hematologic/ Lymphatic: Denies: Adenopathy, Anemia, Easy Bruising, Easy Bleeding, Petechiae, Purpura VTE Information - Inpt Only VTE Present on Admission: No VTE Mechan Device Prophylaxis: None VTE Pharm Prophylaxis ordered?: Yes Patient Problems: Active and Suspected Problems Shortness of breath (Acute) - Physical Exam General: Alert, Oriented x3, Cooperative, No apparent distress, Well developed, Well nourished HEENT: Atraumatic, PERRLA, EOMI, Normocephalic Oral: Moist Mucosa Neck: Supple, No JVD, Negative Carotid Bruits, No Nuchal Rigidity, Trachea Midline, Thyroid Normal Size and Texture Lungs: No wheeze, No rales, Diminished, Rhonchi - Scattered expiratory rhonchi are noted bilaterally Cardiovascular: Regular rate, Regular Rhythm, Normal S1, Normal S2, No murmurs, No Ectopic Activity, PMI Normal, No rub noted, No Gallop Abdomen: Bowel Sounds Present, Soft, Non Tender, Non-Distended, Obese, No hernias noted Extremities: No clubbing, No cyanosis, No edema, Capillary Refill Less than 3 Seconds Skin: No rashes, No breakdown Musculoskeletal: No Tenderness to Palpation of Joints or Extremities Neurological: Cranial nerves II-XII grossly intact, Neuro grossly intact, Sensory exam intact to light touch and pain, Coordination normal Psych/Mental Status: Normal Affect, Appropriate, Alert and oriented to time, place, person, mood and affect Vital Signs Temp Pulse Resp BP Pulse Ox 99.0 F 83 24 H 144/65 H 98 12/30/18 16:39 12/30/18 16:39 12/30/18 16:39 12/30/18 16:39 12/30/18 16:39 Oxygen Flow Rate (L/min) 3 Oxygen Delivery Method Nasal Cannula Weight: 90.718 kg Body Mass Index (BMI) 39.0 Laboratory Tests Past 24 Hrs 12/30/18 12/30/18 12/30/18 13:45 13:45 13:45 WBC 22.2 H RBC 4.31 Hgb 13.0 Hct 40.4 MCV 93.7 MCH 30.2 MCHC 32.2 RDW 14.9 H RDW Differential 51.0 H Plt Count 259 MPV 10.0 Neut % (Auto) Not Reportable Absolute Neuts (auto) 17.8 H Absolute Lymphs (auto) 1.55 Total Counted 100 Neutrophils % (Manual) 77 H Band Neutrophils % 3 Lymphocytes % (Manual) 7 L Monocytes % (Manual) 12 H Metamyelocytes % 1 Diff Path Review May foll Platelet Estimate ADEQUATE RBC Morphology NORM C+C Sodium 135 L Potassium 4.4 Chloride 102 Carbon Dioxide 20.0 L Anion Gap 13 BUN 51 H Creatinine 2.46 H Estim Creat Clear Calc 15.72 Est GFR (MDRD) Af Amer 25 L Est GFR (MDRD) Non-Af 21 L BUN/Creatinine Ratio 20.7 H Glucose 183 H Calcium 9.4 Troponin I 0.018 B-Natriuretic Peptide 58.9 Assessment/Plan All Active Problems Shortness of breath (Acute) Recurrent aspiration pneumonia (Resolved) Chest pressure (Resolved) Vertigo (Resolved) #1 acute exacerbation of COPD-patient will be admitted to [facility], she will be placed on aerosol treatments, IV Solu-Medrol, and her pulse ox will be monitored. #2 right upper lobe community-acquired pneumonia-suspect gram-positive bacterial, sputum culture will be obtained, patient was placed on IV Rocephin and Zithromax, chest x-ray will be repeated tomorrow #3 chronic hypoxic respiratory failure-patient is currently on 3 L oxygen #4 type 2 diabetes-patient's blood sugars will be monitored and sliding scale insulin will be administered #5 pulmonary fibrosis #6 chronic kidney disease stage IV secondary to type 2 diabetes-patient's creatinine is elevated over her baseline creatinine, patient will be given IV fluids and her BMP will be rechecked tomorrow #7 hyperlipidemia #8 hypertension Patient has not had a CT of her chest here at the hospital, she states that her last CT of her chest was done at [facility] several years ago. I will order a noncontrasted chest CT due to her history of pulmonary fibrosis. Code Visit Inpatient E&M: 61682 Init Hosp L3
[2018-12-30 19:01] LABS: Bedside Glucose 269 mg/dL (70-110)
[2018-12-30 19:04] LABS: Bacteria 0 SEEN /hpf (None Seen); Mucous, Urine 0 SEEN /hpf (<or=2+); White Blood Cells 0 SEEN /hpf (0-5)
[2018-12-30 19:09] LABS: Color, Urine Yellow (Yellow); Glucose, Dipstick Normal (Normal); Ketone-Dipstick Negative (Negative); Leukocyte Esterase-Dipstick Negative /ul (Negative); Nitrite-Dipstick Negative (Negative); Occult Blood-Urine 25 /ul (Negative); Protein-Dipstick 15 mg/dl (Negative); Specific Gravity, Urine 1.015 (1.002-1.030); Urine Bilirubin Dipstick Negative (Negative); Urine Clarity Clear (Clear); Urine Urobilinogen 1 mg/dl (Normal)
[2018-12-30 19:15] LABS: Red Blood Cells-Urine 0-5 SEEN /hpf (0-5); Squamous Epithelial Cells - UA 0-5 SEEN /hpf (5-10)
[2018-12-30] MEDS: 0.9% Normal Saline 1,000 ML 100 ML IV (19:29)
[2018-12-30] MEDS: Pantoprazole Sodium 40 MG Tablet PO (22:01)
[2018-12-30] MEDS: Montelukast 10 MG Tablet PO (22:01)
[2018-12-30] MEDS: Acetaminophen 325 MG Tablet 650 MG PO (22:01)
[2018-12-30] MEDS: Heparin Injection (Vial) 5,000 UNIT/ML VIAL 5000 UNIT SC (22:02)
[2018-12-30] MEDS: Insulin Lispro 100 UNIT/ML INSULN.PEN SC (22:14)
[2018-12-30 22:40] LABS: Bedside Glucose 187 mg/dL (70-110)
[2018-12-30 23:52] LABS: Lactic Acid 0.9 mmol/L (0.4-2.0)
[2018-12-31] VITALS (14 sets, daily range): BP systolic 110–132; BP diastolic 48–57; PULSE 70–95; RESP 18–24; TEMP 36.6–36.8; O2SAT 93–98
[2018-12-31] MEDS: Albuterol 2.5 MG/3 ML VIAL.NEB. INHALATION ×2 (00:10→21:52)
[2018-12-31 00:26] LABS: Allen Test POS; Base Excess -5 mmol/L (-2 to +2); Bicarbonate 20.6 mmol/L (22-26); Blood Gas Specimen Type ART; O2 Delivery Device Nasal Can; PO2 76 mmHG (75-100); SITE L Radial; SO2 95 % (95-99); Time Given 10; Total Carbon Dioxide 22 mmol/L; pCO2 36.7 mmHg (35-45); pH 7.36 (7.35-7.45)
[2018-12-31] MEDS: Ipratropium/Albuterol Sulfate 3 ML AMPUL.NEB INHALATION ×5 (03:00→19:43)
--- NOTE | 2018-12-31 05:55 | CT_ITS ---
STUDY: CT CHEST WITHOUT CONTRAST REASON FOR EXAM: Female, 68 years old. CAD. Shortness of breath. RADIATION DOSAGE (If Supplied By Facility): CTDIvol = ( 19.99 ) mGy, DLP = ( 734.35 ) mGycm TECHNIQUE: Transaxial imaging was performed without the administration of intravenous contrast material. Multiplanar coronal and sagittal images were reformatted. Individualized dose optimization techniques were used for this CT. COMPARISON: Chest x-ray December 30, 2018. Chest CT December 04, 2017. FINDINGS: There are bilateral patchy groundglass and nodular airspace opacities in the upper and lower lungs. There are granulomatous calcifications. There is no demonstrated pleural abnormality. There are calcifications of the coronary arteries. There are calcified mediastinal and hilar lymph nodes. Normal unenhanced pulmonary arteries. There is atherosclerotic calcification of the aortic arch with tortuosity and elongation of the aortic arch and descending thoracic aorta. Dextro scoliosis with degenerative change of the spine. There is fatty infiltration of the liver. CT/Chest without Contrast IMPRESSION: Bilateral airspace infiltrates. Old granulomatous disease. Electronically Signed: Rafael Daugherty MD at 8:29 EST , Service support ,
[2018-12-31 06:10] LABS: Absolute Lymphocyte Count 0.38 X10^3/ul (0.83-4.51); Basophil# 0.03 X10^3/uL; Basophil% 0.2 % (0-1); Eosinophil# 0.01 X10^3/uL; Eosinophils% 0.1 % (0-5); Hematocrit 41.7 % (37-47); Hemoglobin 13.3 g/dl (12.0-15.0); Lymphocyte # 0.38 X10^3/ul (4.0); Mean Corp Hgb Conc 31.9 g/gl (32-36); Mean Corpuscular Hgb 30.1 pg (27.0-32.0); Mean Corpuscular Volume 94.3 fL (81-99); Mean Platelet Vol. 9.8 fl (6.2-12.0); Monocyte# 1.25 X10^3/uL; Monocyte% 6.6 % (0-10); Neutrophil # 17.01 X10^3/uL (2.7-7.7); Platelet Count 193 K/mm3 (150-450); RBC Distribution Width CV 14.8 % (11.6-14.6); RBC Distribution Width SD 51.3 fl (35.1-43.9); Red Blood Count 4.42 M/mm3 (4.2-5.4); White Blood Count 18.9 K/mm3 (4.4-11.0)
[2018-12-31 06:13] LABS: Differential Indicated SCAN CRITERIA MET; POSITIVE COUNT NO; POSITIVE DIFFERENTIAL YES; POSITIVE MORPHOLOGY NO
[2018-12-31] MEDS: Heparin Injection (Vial) 5,000 UNIT/ML VIAL 5000 UNIT SC ×3 (06:31→21:11)
[2018-12-31] MEDS: Insulin Lispro 100 UNIT/ML INSULN.PEN SC ×4 (06:31→21:11)
[2018-12-31 06:41] LABS: Bedside Glucose 221 mg/dL (70-110)
--- NOTE | 2018-12-31 07:32 | ECHOCS_ITS ---
Reason For Study: Dyspnea/SOB Procedure This was a 2D Doppler, Color Flow transthoracic echocardiogram. Contrast injection was performed. Exam performed portable in patient room. Left Ventricle Normal LV size. Left ventricular systolic function is normal. The estimated ejection fraction is 55 %. Stage 1 diastolic dysfunction. No regional wall motion abnormalities noted. Right Ventricle Normal RV size. Normal systolic function. Atria Normal left atrium. Normal right atrium. Mitral Valve Normal mitral valve. Tricuspid Valve Normal tricuspid valve. Mild (1+) tricuspid valve insufficiency. Pulmonary artery systolic pressure is 40 mmHg. Mild pulmonary hypertension. Aortic Valve Trisinus/trileaflet aortic valve. Mild focal aortic valve calcification. Pulmonic Valve Normal pulmonic valve. Great Vessels Normal aortic root. The pulmonary artery is normal size. Normal inferior vena cava. Pericardium/Pleural No pericardial effusion. Medication Definity0.2ml given slow IV push to enhance endocardial definition. MMode/2D Measurements & Calculations LVIDd: 5.2 cm IVSd: 1.1 cm Ao root diam: 3.3 cm LVIDs: 3.2 cm LVPWd: 1.0 cm RVDd: 3.3 cm FS: 38.0 % LAV(MOD-bp): 28.4 ml LVAd ap4: 26.2 cm2 SV(MOD-sp4): 42.7 ml LAV(MOD-bp) Indexed: 15.2 ml/m2 EDV(MOD-sp4): 80.5 ml LAV(MOD-sp2): 31.5 ml EDV(sp4-el): 81.0 ml LAV(MOD-sp4): 24.3 ml LVAs ap4: 15.9 cm2 ESV(MOD-sp4): 37.8 ml ESV(sp4-el): 37.0 ml EF(MOD-sp4): 53.1 % EF(sp4-el): 54.3 % SV(sp4-el): 44.0 ml LA A4 area: 12.0 cm2 LA dimension(2D): 3.9 cm RA A4 area: 14.0 cm2 Doppler Measurements & Calculations MV E max kam: 78.6 cm/sec Lat Peak E' Kam: 6.5 cm/sec Med Peak E' Kam: 4.9 cm/sec MV A max kam: 112.6 cm/sec E/E' lat: 12.1 E/E' med: 16.0 MV E/A: 0.70 Ao V2 max: 194.1 cm/sec LV V1 max: 126.5 cm/sec PA V2 max: 91.9 cm/sec Ao max P.1 mmHg LV V1 max P.4 mmHg Ao V2 mean: 144.1 cm/sec Ao mean P.8 mmHg Ao V2 VTI: 34.5 cm TR max kam: 301.2 cm/sec TR max P.3 mmHg Interpretation Summary Normal LV size. Left ventricular systolic function is normal. The estimated ejection fraction is 55 %. Stage 1 diastolic dysfunction. Pulmonary artery systolic pressure is 40 mmHg. Mild pulmonary hypertension. Contrast injection was performed. Ordering Physician: Jessica Christianson Referring Physician: Veronica Oquendo Performed By: Annette Guzman RDCS, RVT
[2018-12-31 08:54] LABS: Magnesium 1.9 mg/dL (1.6-2.6); Thyroid Stim Hormone (TSH) 0.25 uIU/mL (0.358-3.74)
--- NOTE | 2018-12-31 09:03 | CPS ---
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
[2018-12-31] MEDS: Aspirin 81 MG TAB.CHEW PO (09:10)
[2018-12-31] MEDS: Furosemide 40 MG/4 ML Vial IV (09:10)
[2018-12-31] MEDS: Losartan Potassium 50 MG Tablet PO (09:11)
[2018-12-31] MEDS: Febuxostat 40 MG TABLET PO (09:11)
[2018-12-31] MEDS: Pantoprazole Sodium 40 MG Tablet PO ×2 (09:11→21:10)
[2018-12-31] MEDS: LINAGLIPTIN 5 MG TABLET PO (09:11)
[2018-12-31] MEDS: 0.9% NaCl Peripheral Flush Adult/Peds IV ×2 (09:20→21:12)
[2018-12-31] MEDS: Glucerna Shake 120 ML LIQUID PO ×3 (09:29→17:01)
[2018-12-31] MEDS: guaiFENesin 600 MG Tablet PO ×2 (09:30→21:11)
[2018-12-31 09:56] LABS: T4 Free Direct 1.57 ng/dL (0.76-1.46)
[2018-12-31 11:36] LABS: Bedside Glucose 383 mg/dL (70-110)
--- NOTE | 2018-12-31 13:11 | PN_ITS ---
Patient Problems: Active and Suspected Problems Shortness of breath (Acute) Subjective: Patient seen and examined. Continues to have shortness of breath, reports very slight improvement. Complains of fever, chills. Persistent harsh cough. - Physical Exam General: Alert, Oriented x3, Cooperative, - - Ill-appearing HEENT: Atraumatic, PERRLA, EOMI, Normocephalic Neck: Supple, No JVD, Negative Carotid Bruits Lungs: Diminished, Rhonchi, - - Coarse breath sounds bilaterally Cardiovascular: Regular rate, Regular Rhythm, Normal S1, Normal S2, No murmurs Abdomen: Bowel Sounds Present, Soft, Non Tender, Non-Distended Extremities: No clubbing, No cyanosis, No edema, Capillary Refill Less than 3 Seconds Skin: No rashes, No breakdown Musculoskeletal: No Tenderness to Palpation of Joints or Extremities Neurological: Cranial nerves II-XII grossly intact, Neuro grossly intact Psych/Mental Status: Normal Affect, Appropriate Vital Signs Temp Pulse Resp BP Pulse Ox 98.1 F 95 20 H 132/51 H 93 12/31/18 09:17 12/31/18 09:17 12/31/18 09:17 12/31/18 09:17 12/31/18 09:17 Oxygen Flow Rate (L/min) 4 Oxygen Delivery Method Nasal Cannula Weight: 198 lb 6.656 oz Body Mass Index (BMI) 39.0 Intake and Output for Last 24 Hours 12/29/18 12/30/18 12/31/18 23:59 23:59 23:59 Intake Total 2572 / 2572 Output Total 850 / 850 Balance 1722 / 1722 Microbiology Past 72 Hours 12/31/18 07:41 Respiratory Panel (PCR) - Final Mucosa - Nasopharyngeal Influenza A (Subtype H1) 12/30/18 17:45 Gram Stain - Final Sputum, Expectorated/Coughed Respiratory Culture - Preliminary GNR Poss Pseudomonas sp 12/30/18 18:50 Urine Culture - Preliminary Urine, Clean Catch GNR Poss Pseudomonas sp 12/30/18 18:50 Streptococcus pneumoniae Antigen (M - Final Urine, Clean Catch 12/30/18 18:50 Legionella Antigen - Final Urine, Clean Catch Laboratory Tests Past 24 Hrs 12/30/18 12/30/18 12/30/18 13:45 13:45 13:45 WBC 22.2 H RBC 4.31 Hgb 13.0 Hct 40.4 MCV 93.7 MCH 30.2 MCHC 32.2 RDW 14.9 H RDW Differential 51.0 H Plt Count 259 MPV 10.0 Immature Gran % (Auto) Neut % (Auto) Not Reportable Lymph % (Auto) [place] % (Auto) Eos % (Auto) Baso % (Auto) Absolute Neuts (auto) 17.8 H Absolute Lymphs (auto) 1.55 Total Counted 100 Neutrophils % (Manual) 77 H Band Neutrophils % 3 Lymphocytes % (Manual) 7 L Monocytes % (Manual) 12 H Metamyelocytes % 1 Diff Path Review May foll Platelet Estimate ADEQUATE RBC Morphology NORM C+C Specimen Type Sample Site pH Bicarbonate Actual POC Total CO2 Base Excess O2 Saturation ABG pCO2 ABG pO2 Dillan Test O2 Delivery Device Liter Flow Blood Gas Notified Whom Blood Gas Notified Time Sodium 135 L Potassium 4.4 Chloride 102 Carbon Dioxide 20.0 L Anion Gap 13 BUN 51 H Creatinine 2.46 H Estim Creat Clear Calc 15.72 Est GFR (MDRD) Af Amer 25 L Est GFR (MDRD) Non-Af 21 L BUN/Creatinine Ratio 20.7 H Glucose 183 H Lactic Acid Calcium 9.4 Magnesium Troponin I 0.018 B-Natriuretic Peptide 58.9 TSH Free T4 Urine Color Urine Clarity Urine pH Ur Specific [place] Urine Protein Urine Glucose (UA) Urine Ketones Urine Occult Blood Urine Nitrite Urine Bilirubin Urine Urobilinogen Ur Leukocyte Esterase Urine RBC Urine WBC Ur Squamous Epith Cells Urine Bacteria Urine Mucus 12/30/18 12/30/18 12/31/18 18:50 22:54 00:19 WBC RBC Hgb Hct MCV MCH MCHC RDW RDW Differential Plt Count MPV Immature Gran % (Auto) Neut % (Auto) Lymph % (Auto) [place] % (Auto) Eos % (Auto) Baso % (Auto) Absolute Neuts (auto) Absolute Lymphs (auto) Total Counted Neutrophils % (Manual) Band Neutrophils % Lymphocytes % (Manual) Monocytes % (Manual) Metamyelocytes % Diff Path Review Platelet Estimate RBC Morphology Specimen Type ART Sample Site L Radial pH 7.36 Bicarbonate Actual 20.6 L POC Total CO2 22 Base Excess -5 L O2 Saturation 95 ABG pCO2 36.7 ABG pO2 76 Dillan Test POS O2 Delivery Device Nasal Can Liter Flow 4.0 Blood Gas Notified Whom [facility] Blood Gas Notified Time 10 Sodium Potassium Chloride Carbon Dioxide Anion Gap BUN Creatinine Estim Creat Clear Calc Est GFR (MDRD) Af Amer Est GFR (MDRD) Non-Af BUN/Creatinine Ratio Glucose Lactic Acid 0.9 Calcium Magnesium Troponin I B-Natriuretic Peptide TSH Free T4 Urine Color Yellow Urine Clarity Clear Urine pH 6.0 Ur Specific [place] 1.015 Urine Protein 15 H Urine Glucose (UA) Normal Urine Ketones Negative Urine Occult Blood 25 H Urine Nitrite Negative Urine Bilirubin Negative Urine Urobilinogen 1 H Ur Leukocyte Esterase Negative Urine RBC 0-5 SEEN Urine WBC 0 SEEN Ur Squamous Epith Cells 0-5 SEEN Urine Bacteria 0 SEEN Urine Mucus 0 SEEN 12/31/18 12/31/18 12/31/18 05:22 08:03 08:03 WBC 18.9 H RBC 4.42 Hgb 13.3 Hct 41.7 MCV 94.3 MCH 30.1 MCHC 31.9 L RDW 14.8 H RDW Differential 51.3 H Plt Count 193 MPV 9.8 Immature Gran % (Auto) 1.100 H Neut % (Auto) 90.0 H Lymph % (Auto) 2.0 L [place] % (Auto) 6.6 Eos % (Auto) 0.1 Baso % (Auto) 0.2 Absolute Neuts (auto) 17.0 H Absolute Lymphs (auto) 0.38 L Total Counted Not Reportable Neutrophils % (Manual) Band Neutrophils % Lymphocytes % (Manual) Monocytes % (Manual) Metamyelocytes % Diff Path Review Platelet Estimate RBC Morphology Specimen Type Sample Site pH Bicarbonate Actual POC Total CO2 Base Excess O2 Saturation ABG pCO2 ABG pO2 Dillan Test O2 Delivery Device Liter Flow Blood Gas Notified Whom Blood Gas Notified Time Sodium Potassium Chloride Carbon Dioxide Anion Gap BUN Creatinine Estim Creat Clear Calc Est GFR (MDRD) Af Amer Est GFR (MDRD) Non-Af BUN/Creatinine Ratio Glucose Lactic Acid Calcium Magnesium 1.9 Troponin I B-Natriuretic Peptide TSH 0.25 L Free T4 1.57 H Urine Color Urine Clarity Urine pH Ur Specific [place] Urine Protein Urine Glucose (UA) Urine Ketones Urine Occult Blood Urine Nitrite Urine Bilirubin Urine Urobilinogen Ur Leukocyte Esterase Urine RBC Urine WBC Ur Squamous Epith Cells Urine Bacteria Urine Mucus POC Glucose 12/31/18 12/31/18 12/30/18 11:15 06:31 22:09 POC Glucose 383 H 221 H 187 H 12/30/18 17:08 POC Glucose 269 H Medical Necessity - Tobacco Use Smoking Status: Former smoker Tobacco Use: Cigarettes Assessment/Plan All Active Problems Shortness of breath (Acute) Recurrent aspiration pneumonia (Resolved) Chest pressure (Resolved) Vertigo (Resolved) 1. Acute exacerbation of COPD secondary to acute influenza A with chronic hypoxic respiratory failure-complicated by underlying history of pulmonary fibrosis. Patient currently wears supplemental oxygen at home as needed. Respiratory panel positive for influenza A. Initiated on Tamiflu 30 mg daily x5 doses. Albuterol and DuoNeb aerosols. IV Solu-Medrol. Mucinex 600mg BID. Continue supplement oxygen to maintain O2 at or above 90%. IS. PRN Tylenol for fever. 2. Right upper lobe community-acquired pneumonia-chest x-ray admission with new right upper lobe infiltrate. Stable scarring bilateral lungs. Sputum culture pulmonary showing possible Pseudomonas. Continue IV azithromycin and IV Zosyn. Albuterol DuoNeb aerosols. Follow sputum culture. Urine negative for strep and Legionella. 3. Pseudomonas positive urine culture-patient denies urinary symptoms. [place] count 1000-10,000. Suspect colonization. On antibiotics regardless secondary to #2. 4. Abnormal thyroid panel-recommend repeat testing as outpatient following acute illness. 5. Acute kidney injury on chronic kidney disease stage IV-trend BMP. 6. Type 2 diabetes hipmojqt-Nfmb-Qeymn ACHS with sliding scale insulin. Co ntinue home Levemir regimen. Continue Januvia regimen. 7. Hypertension-stable, continue losartan. 8. Hyperlipidemia-not on statin. 9. Obesity-encouraged diet lifestyle modifications. DVT prophylaxis- heparin sc This patient was seen by NAKIA Burr under the supervision of Dr. Christianson.
--- NOTE | 2018-12-31 13:40 | CASEMGMT ---
RN LORAINE Face to Face with patient for initial transition planning/care coordination assessment. RN CM introduced self and role at [facility]. Patient lying in bed, alert and oriented. Patient willing to participate in assessment and is able to answer all questions appropriately. Care providers, pharmacy, and demographics verified. Patient wishes to discharge home and would like HHC, with [facility]. Patient states she has no further needs or concerns at this time. RN CM sent referral to [facility] for senior care, PT, and OT and they are able to accept patient. CM to follow for discharge planning needs that may arise. PCP: Azra Specialists: Danny, hyperion administrator; Quintin, maltster Preferred Pharmacy: [facility] Insurance: Hardik PORTER Prescription Benefit: Yes Living Will/HPOA: Yes, Willian Ling LNOK: Living Arrangements: Patient lives with in 1 story house with 1 step to enter the home. Patient mostly independent, requires some help from Transportation: DME/HHC: Patient states she has BSC, cane, walker, wheelchair, bipap, and oxygen at 2lpm at night through [facility]. If patient requires continuous oxygen will need new script. Disposition Plan: Patient to discharge home with HHC, family support, and follow-up plans in place. Alannah DIAMOND, RN, CM
[2018-12-31] MEDS: Oseltamivir Phosphate 30 MG Capsule PO (13:42)
[2018-12-31] MEDS: Acetaminophen 325 MG Tablet 650 MG PO (13:42)
[2018-12-31] MEDS: Piperacil/Tazobactam 3.375 GM Q12 PREMIX IV ×2 (13:42→21:11)
--- NOTE | 2018-12-31 13:47 | CPS ---
Patient having a bedside echo, pep therapy not done at this time.
[2018-12-31 15:54] LABS: Pathologist Review Reviewed
[2018-12-31 17:10] LABS: Bedside Glucose 305 mg/dL (70-110)
--- NOTE | 2018-12-31 17:13 | CPS ---
Patient working on PEP therapy on ow, patient stated she has one at home.
--- NOTE | 2018-12-31 17:14 | CPS ---
Patient has CPAP at home. Patient stated she hasn't worn it in a while. She is concerned about getting it clean enough to bring in for tonight. Explained to patient that she can wear a hospital CPAP unit. Patient is worried that insurance will not cover her CPAP at home and here at the hospital. Patient's agreed to bring in home unit. Patient is unsure of CPAP setting, it maybe around 7 and has 2lpm bleed-in.
[2018-12-31] MEDS: Montelukast 10 MG Tablet PO (21:10)
[2018-12-31 22:06] LABS: Bedside Glucose 277 mg/dL (70-110)
[2019-01-01] VITALS (11 sets, daily range): BP systolic 126–146; BP diastolic 60–71; PULSE 70–89; RESP 16–22; TEMP 36.4–36.7; O2SAT 94–97
[2019-01-01] MEDS: Ipratropium/Albuterol Sulfate 3 ML AMPUL.NEB INHALATION ×4 (03:12→15:22)
--- NOTE | 2019-01-01 03:23 | CPS ---
pt using home cpap unit with 3L o2 bled into machine.
[2019-01-01] MEDS: Heparin Injection (Vial) 5,000 UNIT/ML VIAL 5000 UNIT SC ×3 (06:24→23:02)
[2019-01-01] MEDS: Insulin Lispro 100 UNIT/ML INSULN.PEN SC ×4 (06:27→23:06)
[2019-01-01 06:36] LABS: Bedside Glucose 238 mg/dL (70-110)
[2019-01-01 07:10] LABS: Absolute Neutrophil Count 17.9 X10^3/uL (2.0-7.7); Basophil# 0.03 X10^3/uL; Basophil% 0.2 % (0-1); Hematocrit 39.2 % (37-47); Hemoglobin 12.2 g/dl (12.0-15.0); Lymphocyte % 5.2 % (19-41); Mean Corp Hgb Conc 31.1 g/gl (32-36); Mean Corpuscular Volume 96.3 fL (81-99); Mean Platelet Vol. 10.4 fl (6.2-12.0); Monocyte# 0.07 X10^3/uL; Monocyte% 0.4 % (0-10); Neutrophil # 17.87 X10^3/uL (2.7-7.7); Neutrophil % 93.2 % (47-70); Platelet Count 237 K/mm3 (150-450); RBC Distribution Width CV 14.9 % (11.6-14.6); RBC Distribution Width SD 52.7 fl (35.1-43.9); Red Blood Count 4.07 M/mm3 (4.2-5.4); White Blood Count 19.2 K/mm3 (4.4-11.0)
[2019-01-01 07:18] LABS: POSITIVE COUNT NO; POSITIVE DIFFERENTIAL NO; POSITIVE MORPHOLOGY NO
[2019-01-01 07:48] LABS: Anion Gap 9 (5-15); BUN 54 mg/dL (7-18); BUN/Creat Ratio 26.5 RATIO (10-20); Calcium,Total 9.1 mg/dL (8.5-10.1); Chloride 103 mmol/L (98-107); Creatinine, Serum 2.04 mg/dL (0.55-1.02); EST Glomerular Filtration Rate 26 mL/min (>60); Est Glom Filt Rate - Afr Amer 31 mL/min (>60); Estimated Creatinine Clearance 18.96 ml/min; Glucose 229 mg/dL (74-106); Potassium 4.1 mmol/L (3.5-5.1); Sodium Level 132 mmol/L (136-145)
[2019-01-01] MEDS: Febuxostat 40 MG TABLET PO (07:57)
[2019-01-01] MEDS: guaiFENesin 600 MG Tablet PO ×2 (08:00→23:02)
[2019-01-01] MEDS: LINAGLIPTIN 5 MG TABLET PO (08:00)
[2019-01-01] MEDS: Pantoprazole Sodium 40 MG Tablet PO ×2 (08:00→23:02)
[2019-01-01] MEDS: Aspirin 81 MG TAB.CHEW PO (08:00)
[2019-01-01] MEDS: Glucerna Shake 120 ML LIQUID PO ×3 (08:10→16:27)
--- NOTE | 2019-01-01 10:02 | CASEMGMT ---
SW spoke with patient regarding Meals on Wheels per her request. Went over referral regarding meal choices etc. SW told patient referral will be faxed and [facility] will follow up with her. [facility] referral faxed. Ama BROOKS MSW
--- NOTE | 2019-01-01 10:16 | PN_ITS ---
Patient Problems: Active and Suspected Problems Shortness of breath (Acute) Subjective: Patient seen and examined. Breathing improving. Patient reports she ambulated to restroom and had significant increased shortness of breath. No acute events overnight. - Physical Exam General: Alert, Oriented x3, Cooperative HEENT: Atraumatic, PERRLA, EOMI, Normocephalic Oral: Dry Mucosa Neck: Supple, No JVD, Negative Carotid Bruits Lungs: Diminished, Rhonchi, Wheezes Cardiovascular: Regular rate, Regular Rhythm, Normal S1, Normal S2, No murmurs Abdomen: Bowel Sounds Present, Soft, Non Tender, Non-Distended Extremities: No clubbing, No cyanosis, No edema, Capillary Refill Less than 3 Seconds Skin: No rashes, No breakdown Musculoskeletal: No Tenderness to Palpation of Joints or Extremities Neurological: Cranial nerves II-XII grossly intact, Neuro grossly intact Psych/Mental Status: Normal Affect, Appropriate Vital Signs Temp Pulse Resp BP Pulse Ox 97.7 F L 70 22 H 126/71 H 97 01/01/19 07:44 01/01/19 07:48 01/01/19 07:44 01/01/19 07:44 01/01/19 07:44 Oxygen Flow Rate (L/min) 3 Oxygen Delivery Method Nasal Cannula Weight: 198 lb 6.656 oz Body Mass Index (BMI) 39.0 Intake and Output for Last 24 Hours 12/30/18 12/31/18 01/01/19 23:59 23:59 23:59 Intake Total 3072 / 3072 1382 / 1382 Output Total 1500 / 1500 1350 / 1350 Balance 1572 / 1572 32 / 32 Microbiology Past 72 Hours 12/30/18 17:45 Gram Stain - Final Sputum, Expectorated/Coughed Respiratory Culture - Final Pseudomonas aeroginosa 12/30/18 18:50 Urine Culture - Final Urine, Clean Catch GNR Poss Pseudomonas sp 12/31/18 07:41 Respiratory Panel (PCR) - Final Mucosa - Nasopharyngeal Influenza A (Subtype H1) 12/30/18 18:50 Streptococcus pneumoniae Antigen (M - Final Urine, Clean Catch 12/30/18 18:50 Legionella Antigen - Final Urine, Clean Catch Laboratory Tests Past 24 Hrs 12/30/18 01/01/19 01/01/19 13:45 06:19 06:19 WBC 19.2 H RBC 4.07 L Hgb 12.2 Hct 39.2 MCV 96.3 MCH 30.0 MCHC 31.1 L RDW 14.9 H RDW Differential 52.7 H Plt Count 237 MPV 10.4 Immature Gran % (Auto) 1.000 H Neut % (Auto) 93.2 H Lymph % (Auto) 5.2 L [place] % (Auto) 0.4 Eos % (Auto) 0.0 Baso % (Auto) 0.2 Absolute Neuts (auto) 17.9 H Absolute Lymphs (auto) 1.00 Total Counted Not Reportable Diff Path Review Reviewed Sodium 132 L Potassium 4.1 Chloride 103 Carbon Dioxide 20.0 L Anion Gap 9 BUN 54 H Creatinine 2.04 H Estim Creat Clear Calc 18.96 Est GFR (MDRD) Af Amer 31 L Est GFR (MDRD) Non-Af 26 L BUN/Creatinine Ratio 26.5 H Glucose 229 H Calcium 9.1 POC Glucose 01/01/19 12/31/18 12/31/18 06:27 21:06 16:41 POC Glucose 238 H 277 H 305 H 12/31/18 11:15 POC Glucose 383 H Medical Necessity - Tobacco Use Smoking Status: Former smoker Tobacco Use: Cigarettes Assessment/Plan All Active Problems Shortness of breath (Acute) Recurrent aspiration pneumonia (Resolved) Chest pressure (Resolved) Vertigo (Resolved) 1. Acute sepsis secondary to acute exacerbation of COPD secondary to acute influenza A with chronic hypoxic respiratory failure as well as CAP-complicated by underlying history of pulmonary fibrosis/sarcoidosis. Patient currently w ears supplemental oxygen at home as needed. Respiratory panel positive for influenza A. Initiated on Tamiflu 30 mg daily x5 doses. Albuterol and DuoNeb aerosols. IV Solu-Medrol. Mucinex 600mg BID. Continue supplement oxygen to maintain O2 at or above 90%. IS. PRN Tylenol for fever. 2. Right upper lobe community-acquired pneumonia-chest x-ray admission with new right upper lobe infiltrate. Stable scarring bilateral lungs. Sputum culture pulmonary showing Pseudomonas. Continue IV azithromycin and IV Zosyn. Albuterol DuoNeb aerosols. Urine negative for strep and Legionella. 3. Pseudomonas positive urine culture-patient denies urinary symptoms. [place] count 1000-10,000. Suspect colonization. On antibiotics regardless secondary to #2. 4. Abnormal thyroid panel-recommend repeat testing in 4-6 weeks as outpatient following resolve of acute illness. 5. Acute kidney injury on chronic kidney disease stage IV-Improving. Trend BMP. 6. Type 2 diabetes qapqmmrx-Wnyt-Gejew ACHS with sliding scale insulin. Continue home Levemir regimen. Continue Januvia regimen. 7. Hypertension-stable, continue losartan. 8. Hyperlipidemia-not on statin. 9. Obesity-encouraged diet lifestyle modifications. 10. CONCEPCION- CPAP QHS. DVT prophylaxis- heparin sc This patient was seen by NAKIA Burr under the supervision of Dr. Christianson.
[2019-01-01] MEDS: Fluticasone 0.05% 1 SPRAY NASAL.SRY NASAL (11:19)
[2019-01-01] MEDS: Acetaminophen 325 MG Tablet 650 MG PO (11:29)
[2019-01-01 11:36] LABS: Bedside Glucose 368 mg/dL (70-110)
[2019-01-01] MEDS: Piperacil/Tazobactam 3.375 GM Q12 PREMIX IV ×2 (12:27→23:02)
[2019-01-01] MEDS: Oseltamivir Phosphate 30 MG Capsule PO (12:27)
[2019-01-01 16:16] LABS: Bedside Glucose 228 mg/dL (70-110)
[2019-01-01] MEDS: Montelukast 10 MG Tablet PO (23:02)
[2019-01-01 23:26] LABS: Bedside Glucose 326 mg/dL (70-110)
[2019-01-01] MEDS: Benzonatate 100 MG Capsule PO (23:55)
[2019-01-02 03:50] VITALS: PULSE 90; RESP 20
[2019-01-02] MEDS: Ipratropium/Albuterol Sulfate 3 ML AMPUL.NEB INHALATION ×3 (03:50→10:57)
[2019-01-02 04:03] VITALS: BP 131/75; PULSE 82; RESP 16; TEMP 36.2; O2SAT 93
[2019-01-02] MEDS: Heparin Injection (Vial) 5,000 UNIT/ML VIAL 5000 UNIT SC (06:53)
[2019-01-02] MEDS: Insulin Lispro 100 UNIT/ML INSULN.PEN SC (06:53)
[2019-01-02 07:02] LABS: Absolute Neutrophil Count 13.4 X10^3/uL (2.0-7.7); Basophil# 0.02 X10^3/uL; Basophil% 0.1 % (0-1); Differential Indicated SCAN CRITERIA MET; Eosinophil# 0.01 X10^3/uL; Eosinophils% 0.1 % (0-5); Hematocrit 34.8 % (37-47); Hemoglobin 11.5 g/dl (12.0-15.0); Lymphocyte % 2.7 % (19-41); Mean Corpuscular Hgb 30.8 pg (27.0-32.0); Mean Corpuscular Volume 93.3 fL (81-99); Mean Platelet Vol. 10.1 fl (6.2-12.0); Monocyte# 0.84 X10^3/uL; Monocyte% 5.6 % (0-10); POSITIVE COUNT NO; POSITIVE DIFFERENTIAL YES; POSITIVE MORPHOLOGY NO; Platelet Count 269 K/mm3 (150-450); RBC Distribution Width CV 14.5 % (11.6-14.6); RBC Distribution Width SD 47.4 fl (35.1-43.9); Red Blood Count 3.73 M/mm3 (4.2-5.4); White Blood Count 14.9 K/mm3 (4.4-11.0)
[2019-01-02 07:06] VITALS: PULSE 82; RESP 16; O2SAT 95
[2019-01-02 07:16] LABS: Bedside Glucose 292 mg/dL (70-110)
[2019-01-02 07:22] LABS: Anion Gap 12 (5-15); BUN 57 mg/dL (7-18); BUN/Creat Ratio 31.8 RATIO (10-20); Calcium,Total 9.5 mg/dL (8.5-10.1); Chloride 102 mmol/L (98-107); Creatinine, Serum 1.79 mg/dL (0.55-1.02); EST Glomerular Filtration Rate 30 mL/min (>60); Est Glom Filt Rate - Afr Amer 36 mL/min (>60); Estimated Creatinine Clearance 21.61 ml/min; Glucose 249 mg/dL (74-106); Potassium 4.2 mmol/L (3.5-5.1); Sodium Level 137 mmol/L (136-145)
[2019-01-02] MEDS: Pantoprazole Sodium 40 MG Tablet PO (08:19)
[2019-01-02] MEDS: Aspirin 81 MG TAB.CHEW PO (08:19)
[2019-01-02] MEDS: guaiFENesin 600 MG Tablet PO (08:19)
[2019-01-02] MEDS: Febuxostat 40 MG TABLET PO (08:19)
[2019-01-02] MEDS: Glucerna Shake 120 ML LIQUID PO (08:19)
[2019-01-02] MEDS: Oseltamivir Phosphate 30 MG Capsule PO (08:20)
[2019-01-02] MEDS: Fluticasone 0.05% 1 SPRAY NASAL.SRY NASAL (08:20)
[2019-01-02] MEDS: LINAGLIPTIN 5 MG TABLET PO (08:20)
--- NOTE | 2019-01-02 09:32 | PCM.DC ---
- Discharge Diagnoses Current Active Problems: Current Active and Chronic Problems 1. Acute sepsis secondary to acute exacerbation of COPD secondary to acute influenza A with chronic hypoxic respiratory failure as well as CAP 2. Right upper lobe community-acquired pneumonia 3. Pseudomonas positive urine culture, colonization- no UTI 4. Abnormal thyroid panel 5. Acute kidney injury on chronic kidney disease stage IV You will use the following diet at home:: Calorie/Carbohydrate Controlled (specify 1200, 1400, etc) Discharge Activity: Return to Normal Activity Call your doctor if you observe: Shortness of breath, Dizziness, Fainting spells, Chest pain Additional Instructions: Recommend BMP in 3-5 days to assess kidney function. Also recommend repeat thyroid panel in 4-6 weeks. Your thyroid panel was abnormal which can happen with acute illness but will need repeated following resolve of acute illness. These tests can be ordered by your primary care provider. You will need to continue supplemental oxygen to maintain oxygen level above 90%. Recommend obtaining pulse oximeter from drug store to monitor this. You may ween oxygen as respiratory illness resolves. Allergies/Adverse Reactions: Allergies clindamycin Allergy (Verified 12/30/18 13:42) Rash ciprofloxacin Adverse Reaction (Mild, Verified 12/30/18 13:42) Upset Stomach amoxicillin trihydrate [From Augmentin] Adverse Reaction (Verified 12/30/18 13:42) Nausea morphine Adverse Reaction (Verified 12/30/18 13:43) Nausea potassium clavulanate [From Augmentin] Adverse Reaction (Verified 12/30/18 13:42) Nausea Medications to take at Discharge Albuterol Aerosols [Ventolin Aerosols] 2.5 mg INHALATION Q6H PRN PRN 07/07/14 Fenofibric Acid (Choline) [Trilipix] 135 mg PO DAILY 07/07/14 Lactobacillus Combination No.4 [Probiotic] 1 each PO DAILY 07/07/14 Loratadine [Claritin] 10 mg PO DAILY 07/07/14 Losartan Potassium [Cozaar] 50 mg PO DAILY 07/07/14 Montelukast [Singulair] 10 mg PO QHS 07/07/14 Alendronate Sodium [Fosamax] 70 mg PO MO 06/21/17 Cholecalciferol (Vitamin D3) [Vitamin D3] 1,000 unit PO DAILY 06/21/17 Fluticasone 0.05% [Flonase Nasal [place]] 1 spray NASAL DAILY PRN PRN 06/21/17 Fluticasone/Salmeterol [Advair 500/50 Mcg Diskus] 1 puff INHALATION BID 06/21/17 Insulin Detemir [Levemir FlexPen] 30 units SC QHS 06/21/17 [place]-3S/Dha/Epa/Fish Oil [Fish Oil 1,200 mg Softgel] 1 each PO DAILY 06/21/17 Pantoprazole Sodium [Protonix] 40 mg PO DAILY 06/21/17 Tiotropium [place] [Spiriva Respimat] 2 puff IH DAILY 06/21/17 Albuterol Inhaler [Ventolin Hfa] 1 - 2 puff INHALATION Q4H PRN PRN 12/04/17 Sour [place] Extract [Tart [place] Extract] 1,000 mg PO DAILY 01/07/18 Aspirin [Aspirin, Baby] 81 mg PO DAILY 12/30/18 Febuxostat [Uloric] 40 mg PO DAILY 12/30/18 Sitagliptin Phosphate [Januvia] 50 mg PO DAILY 12/30/18 Triamterene 37.5MG/Hctz 25MG [Maxzide 37.5 mg-25 mg Tablet] 1 tablet PO DAILY 12/30/18 Oseltamivir Phosphate [Tamiflu] 30 mg PO DAILY #2 capsule 01/02/19 Prednisone See Taper PO DAILY #30 tablet 01/02/19 levoFLOXacin tablet [Levaquin tablet] 750 mg PO DAILY #7 tablet 01/02/19 The following prescriptions were given: levoFLOXacin tablet [Levaquin tablet] 750 mg PO DAILY #7 tablet Oseltamivir Phosphate [Tamiflu] 30 mg PO DAILY #2 capsule Prednisone See Taper PO DAILY #30 tablet Primary Care Physician: Veronica Oquendo DO [Primary Care Provider] - Please follow up with your Primary Care Physician in: Next week. Test Results: Test results from this visit will be discussed in further detail at your follow-up appointment, if applicable. Please Follow Up With: Octavio Delgado MD When: 1-2 Weeks Please Follow Up With: Suzanne Moore MD When: 1-2 Weeks Proposed Discharge Date: 01/02/19
--- NOTE | 2019-01-02 09:37 | DCINST_ITS ---
- Discharge Diagnoses Current Active Problems: Current Active and Chronic Problems 1. Acute sepsis secondary to acute exacerbation of COPD secondary to acute influenza A with chronic hypoxic respiratory failure as well as CAP 2. Right upper lobe community-acquired pneumonia 3. Pseudomonas positive urine culture, colonization- no UTI 4. Abnormal thyroid panel 5. Acute kidney injury on chronic kidney disease stage IV You will use the following diet at home:: Calorie/Carbohydrate Controlled (specify 1200, 1400, etc) Discharge Activity: Return to Normal Activity Call your doctor if you observe: Shortness of breath, Dizziness, Fainting spells, Chest pain Additional Instructions: Recommend BMP in 3-5 days to assess kidney function. Also recommend repeat thyroid panel in 4-6 weeks. Your thyroid panel was abnormal which can happen with acute illness but will need repeated following resolve of acute illness. These tests can be ordered by your primary care provider. You will need to continue supplemental oxygen to maintain oxygen level above 90%. Recommend obtaining pulse oximeter from drug store to monitor this. You may ween oxygen as respiratory illness resolves. Allergies/Adverse Reactions: Allergies clindamycin Allergy (Verified 12/30/18 13:42) Rash ciprofloxacin Adverse Reaction (Mild, Verified 12/30/18 13:42) Upset Stomach amoxicillin trihydrate [From Augmentin] Adverse Reaction (Verified 12/30/18 13:42) Nausea morphine Adverse Reaction (Verified 12/30/18 13:43) Nausea potassium clavulanate [From Augmentin] Adverse Reaction (Verified 12/30/18 13:42) Nausea Medications to take at Discharge Albuterol Aerosols [Ventolin Aerosols] 2.5 mg INHALATION Q6H PRN PRN 07/07/14 Fenofibric Acid (Choline) [Trilipix] 135 mg PO DAILY 07/07/14 Lactobacillus Combination No.4 [Probiotic] 1 each PO DAILY 07/07/14 Loratadine [Claritin] 10 mg PO DAILY 07/07/14 Losartan Potassium [Cozaar] 50 mg PO DAILY 07/07/14 Montelukast [Singulair] 10 mg PO QHS 07/07/14 Alendronate Sodium [Fosamax] 70 mg PO MO 06/21/17 Cholecalciferol (Vitamin D3) [Vitamin D3] 1,000 unit PO DAILY 06/21/17 Fluticasone 0.05% [Flonase Nasal [place]] 1 spray NASAL DAILY PRN PRN 06/21/17 Fluticasone/Salmeterol [Advair 500/50 Mcg Diskus] 1 puff INHALATION BID 06/21/17 Insulin Detemir [Levemir FlexPen] 30 units SC QHS 06/21/17 [place]-3S/Dha/Epa/Fish Oil [Fish Oil 1,200 mg Softgel] 1 each PO DAILY 06/21/17 Pantoprazole Sodium [Protonix] 40 mg PO DAILY 06/21/17 Tiotropium [place] [Spiriva Respimat] 2 puff IH DAILY 06/21/17 Albuterol Inhaler [Ventolin Hfa] 1 - 2 puff INHALATION Q4H PRN PRN 12/04/17 Sour [place] Extract [Tart Scott Extract] 1,000 mg PO DAILY 01/07/18 Aspirin [Aspirin, Baby] 81 mg PO DAILY 12/30/18 Febuxostat [Uloric] 40 mg PO DAILY 12/30/18 Sitagliptin Phosphate [Januvia] 50 mg PO DAILY 12/30/18 Triamterene 37.5MG/Hctz 25MG [Maxzide 37.5 mg-25 mg Tablet] 1 tablet PO DAILY 12/30/18 Oseltamivir Phosphate [Tamiflu] 30 mg PO DAILY #2 capsule 01/02/19 Prednisone See Taper PO DAILY #30 tablet 01/02/19 levoFLOXacin tablet [Levaquin tablet] 750 mg PO DAILY #7 tablet 01/02/19 The following prescriptions were given: levoFLOXacin tablet [Levaquin tablet] 750 mg PO DAILY #7 tablet Oseltamivir Phosphate [Tamiflu] 30 mg PO DAILY #2 capsule Prednisone See Taper PO DAILY #30 tablet Primary Care Physician: Veronica Oquendo DO [Primary Care Provider] - Please follow up with your Primary Care Physician in: Next week. Test Results: Test results from this visit will be discussed in further detail at your follow- up appointment, if applicable. Please Follow Up With: Octavio Delgado MD When: 1-2 Weeks Please Follow Up With: Suzanne Moore MD When: 1-2 Weeks Proposed Discharge Date: 01/02/19
[2019-01-02 09:58] VITALS: O2SAT 86; O2SAT 90; O2SAT 92
[2019-01-02 10:00] VITALS: BP 149/70; PULSE 81; RESP 18; TEMP 36.4; O2SAT 96
[2019-01-02 10:58] VITALS: PULSE 82; RESP 16
--- NOTE | 2019-01-02 11:04 | NURSING ---
talked w/ Hank as well as Lyn. AwaRe brought in larger portable O2- so portable o2 take no longer needed to be brought for discharge. per hank is she calls the office tomorrow the office can order the smaller portable tanks. walking o2 trial results faxed to hank.
--- NOTE | 2019-01-02 11:21 | PCM.DC.SUM ---
Discharge Date and Diagnosis Date of Admission: 12/30/18 Date of Discharge: 01/02/19 - Primary Discharge Diagnosis Active and Suspected Problems 1. Acute sepsis secondary to acute exacerbation of COPD secondary to acute influenza A with chronic hypoxic respiratory failure as well as CAP 2. Right upper lobe community-acquired pneumonia 3. Pseudomonas positive urine culture, colonization 4. Abnormal thyroid panel 5. Acute kidney injury on chronic kidney disease stage IV - Secondary Discharge Diagnosis Chronic Problems On home O2 (Chronic) Sarcoidosis (Chronic) Type 2 diabetes mellitus (Chronic) Chronic obstructive lung disease (Chronic) mild Hyperlipidemia (Chronic) CKD (chronic kidney disease), stage II (Chronic) Benign hypertension (Chronic) Hospital Course and Treatment Imaging Results: Diagnostic Data Chest X-Ray 12/30/18 13:28 IMPRESSION: New right upper lobe infiltrate. Stable scarring in both lungs. Electronically Signed: Anam Larios MD at 14:44 EST , Service support , Chest CT 12/31/18 05:55 IMPRESSION: Bilateral airspace infiltrates. Old granulomatous disease. Electronically Signed: Rafael Daugherty MD at 8:29 EST , Service support , Dr. Delgado- Pulmonary Medicine Operations: None Procedures: 2-D Echocardiogram Summary of Care Provided: The patient is a 68 year old F admitted 12/30/2018 due to shortness of breath. 1. Acute sepsis secondary to acute exacerbation of COPD secondary to acute influenza A with chronic hypoxic respiratory failure as well as CAP-complicated by underlying history of pulmonary fibrosis/sarcoidosis. Patient currently wears supplemental oxygen at home as needed. Respiratory panel positive for influenza A. Initiated on Tamiflu 30 mg daily x5 doses. Continue home albuterol aerosols. IV Solu-Medrol transitioned to oral prednisone taper at discharge. Patient currently has oxygen as needed at home, she will need to wear continuous supplemental oxygen at discharge to maintain O2 at or above 90%. She was instructed to wean as tolerated as respiratory illness resolves and continue as needed oxygen use thereafter. 2. Right upper lobe community-acquired pneumonia-chest x-ray admission with new right upper lobe infiltrate. Stable scarring bilateral lungs. Sputum culture pulmonary showing Pseudomonas. Patient received IV azithromycin and IV Zosyn during admission. Urine negative for strep and Legionella. Discharged on Levaquin 750 mg p.o. every 48 hours for a total of 10 days of antibiotic therapy. 3. Pseudomonas positive urine culture-patient denies urinary symptoms. [place] count 1000-10,000. Suspected colonization. 4. Abnormal thyroid panel-recommend repeat testing in 4-6 weeks as outpatient following resolve of acute illness. 5. Acute kidney injury on chronic kidney disease stage IV-Improving. Trend BMP. 6. Type 2 diabetes mellitus-Continue home Levemir regimen. Continue Januvia regimen. 7. Hypertension-stable, continue losartan. 8. Hyperlipidemia-continue fenofibrate. 9. Obesity-encouraged diet lifestyle modifications. 10. CONCEPCION- CPAP QHS. General: Alert, Oriented x3, Cooperative HEENT: Atraumatic, PERRLA, EOMI, Normocephalic Oral: Moist mucosa Neck: Supple, No JVD, Negative Carotid Bruits Lungs: Diminished, Rhonchi Cardiovascular: Regular rate, Regular Rhythm, Normal S1, Normal S2, No murmurs Abdomen: Bowel Sounds Present, Soft, Non Tender, Non-Distended Extremities: No clubbing, No cyanosis, No edema, Capillary Refill Less than 3 Seconds Skin: No rashes, No breakdown Musculoskeletal: No Tenderness to Palpation of Joints or Extremities Neurological: Cranial nerves II-XII grossly intact, Neuro grossly intact Psych/Mental Status: Normal Affect, Appropriate Patient seen and examined prior to discharge. Physical assessment as noted above. Patient is stable for discharge with follow up recommendations as noted above. This patient was seen by NAKIA Burr under the supervision of Dr. Christianson. - Physical Exam Vital Signs Temp Pulse Resp BP Pulse Ox 97.5 F L 82 16 149/70 H 96 01/02/19 10:00 01/02/19 10:58 01/02/19 10:58 01/02/19 10:00 01/02/19 10:00 Oxygen Flow Rate (L/min) [ 2 AMBULATION with Oxygen] Oxygen Flow Rate (L/min) 3 Oxygen Delivery Method Nasal Cannula Weight: 198 lb 6.656 oz Body Mass Index (BMI) 39.0 Intake and Output for Last 24 Hours 12/31/18 01/01/19 01/02/19 23:59 23:59 23:59 Intake Total 3072 / 3072 2885 / 2885 490 / 490 Output Total 1500 / 1500 2450 / 2450 1300 / 1300 Balance 1572 / 1572 435 / 435 -810 / -810 Microbiology Past 72 Hours 12/30/18 22:54 Blood Culture - Preliminary Blood Culture (Wb) - Left Wrist No growth in 48 hours. 12/30/18 22:48 Blood Culture - Preliminary Blood Culture (Wb) - Left Hand No growth in 48 hours. 12/30/18 17:45 Gram Stain - Final Sputum, Expectorated/Coughed Respiratory Culture - Final Pseudomonas aeroginosa 12/30/18 18:50 Urine Culture - Final Urine, Clean Catch GNR Poss Pseudomonas sp 12/31/18 07:41 Respiratory Panel (PCR) - Final Mucosa - Nasopharyngeal Influenza A (Subtype H1) 12/30/18 18:50 Streptococcus pneumoniae Antigen (M - Final Urine, Clean Catch 12/30/18 18:50 Legionella Antigen - Final Urine, Clean Catch Laboratory Tests Past 24 Hrs 01/02/19 01/02/19 05:40 05:40 WBC 14.9 H RBC 3.73 L Hgb 11.5 L Hct 34.8 L MCV 93.3 MCH 30.8 MCHC 33.0 RDW 14.5 RDW Differential 47.4 H Plt Count 269 MPV 10.1 Immature Gran % (Auto) 1.500 H Neut % (Auto) 90.0 H Lymph % (Auto) 2.7 L [place] % (Auto) 5.6 Eos % (Auto) 0.1 Baso % (Auto) 0.1 Absolute Neuts (auto) 13.4 H Absolute Lymphs (auto) 0.40 L Total Counted Not Reportable Sodium 137 Potassium 4.2 Chloride 102 Carbon Dioxide 23.0 Anion Gap 12 BUN 57 H Creatinine 1.79 H Estim Creat Clear Calc 21.61 Est GFR (MDRD) Af Amer 36 L Est GFR (MDRD) Non-Af 30 L BUN/Creatinine Ratio 31.8 H Glucose 249 H Calcium 9.5 POC Glucose 01/02/19 01/01/19 01/01/19 06:48 23:00 16:09 POC Glucose 292 H 326 H 228 H 01/01/19 11:23 POC Glucose 368 H Discharge Diet: 1800 Calorie Control Diet, Carb Control Diet Discharge Activity: Return to Normal Activity Call your doctor if you observe: Shortness of breath, Dizziness, Fainting spells, Chest pain Home Medications: Medications to take at Discharge Albuterol Aerosols [Ventolin Aerosols] 2.5 mg INHALATION Q6H PRN PRN 07/07/14 Fenofibric Acid (Choline) [Trilipix] 135 mg PO DAILY 07/07/14 Lactobacillus Combination No.4 [Probiotic] 1 each PO DAILY 07/07/14 Loratadine [Claritin] 10 mg PO DAILY 07/07/14 Losartan Potassium [Cozaar] 50 mg PO DAILY 07/07/14 Montelukast [Singulair] 10 mg PO QHS 07/07/14 Alendronate Sodium [Fosamax] 70 mg PO MO 06/21/17 Cholecalciferol (Vitamin D3) [Vitamin D3] 1,000 unit PO DAILY 06/21/17 Fluticasone 0.05% [Flonase Nasal [place]] 1 spray NASAL DAILY PRN PRN 06/21/17 Fluticasone/Salmeterol [Advair 500/50 Mcg Diskus] 1 puff INHALATION BID 06/21/17 Insulin Detemir [Levemir FlexPen] 30 units SC QHS 06/21/17 [place]-3S/Dha/Epa/Fish Oil [Fish Oil 1,200 mg Softgel] 1 each PO DAILY 06/21/17 Pantoprazole Sodium [Protonix] 40 mg PO DAILY 06/21/17 Tiotropium [place] [Spiriva Respimat] 2 puff IH DAILY 06/21/17 Albuterol Inhaler [Ventolin Hfa] 1 - 2 puff INHALATION Q4H PRN PRN 12/04/17 Sour [place] Extract [Tart [place] Extract] 1,000 mg PO DAILY 01/07/18 Aspirin [Aspirin, Baby] 81 mg PO DAILY 12/30/18 Febuxostat [Uloric] 40 mg PO DAILY 12/30/18 Sitagliptin Phosphate [Januvia] 50 mg PO DAILY 12/30/18 Triamterene 37.5MG/Hctz 25MG [Maxzide 37.5 mg-25 mg Tablet] 1 tablet PO DAILY 12/30/18 Oseltamivir Phosphate [Tamiflu] 30 mg PO DAILY #2 capsule 01/02/19 Prednisone See Taper PO DAILY #30 tablet 01/02/19 levoFLOXacin tablet [Levaquin tablet] 750 mg PO DAILY #7 tablet 01/02/19 Following Prescrptions Were Given to Patient: levoFLOXacin tablet [Levaquin tablet] 750 mg PO DAILY #7 tablet Oseltamivir Phosphate [Tamiflu] 30 mg PO DAILY #2 capsule Prednisone See Taper PO DAILY #30 tablet Primary Care Physician: Veronica Oquendo DO [Primary Care Provider] - Please follow up with your Primary Care Physician in: Next week. Please Follow Up With: Octavio Delgado MD When: 1-2 Weeks Please Follow Up With: Suzanne Moore MD When: 1-2 Weeks Additional Instructions: Recommend BMP in 3-5 days to assess kidney function. Also recommend repeat thyroid panel in 4-6 weeks. Your thyroid panel was abnormal which can happen with acute illness but will need repeated following resolve of acute illness. These tests can be ordered by your primary care provider. You will need to continue supplemental oxygen to maintain oxygen level above 90%. Recommend obtaining pulse oximeter from drug store to monitor this. You may ween oxygen as respiratory illness resolves. Disposition: Home Minutes spent on discharge:: 35 Patient Condition:: Stable Medical Necessity - Tobacco Use Smoking Status: Former smoker Tobacco Use: Cigarettes Meaningful Use Info Meaningful Use Diagnoses (Choose all that apply): None applicable
--- NOTE | 2019-01-03 15:22 | CASEMGMT ---
SARA BARON Discharge Follow-up Phone Call: CHRIS: Liz Strata: 3 Call Date: 01/03/19 Discharge Date: 01/02/19 Time of Call: 1520 Duration: 5 min Admitting Diagnosis: CAP, exac of COPD RN LORAINE completed follow-up phone call after recent hospitalization. Patient states is has been hard for her to sleep due to laying down, has been sleeping in chair. Patient states she has been wearing her oxygen as directed. Patient states that she has been coughing up sputum and sometimes it hurts. CM suggested bracing with pillow to try and help. Patient states that [facility] is scheduled to see patient in about an hour. Patient has follow-up appt with PCP on and is working on scheduling appts with reheat furnace operator and wedding transportation driver.
== END 2019-01-02 11:35 | disposition home health service (06) | DRG 871 ==
LOC: ED 14:00 → MS3 15:27
PROVIDERS: Hospitalist; Admitting Provider Internal Medicine; Emergency Provider Emergency Medicine; Family Provider Internal Medicine; PCP Internal Medicine; Visit Provider Family Medicine
DX: A41.9 Sepsis, unspecified organism (principal); J96.21 Acute and chronic respiratory failure with hypoxia; J10.08 Influenza due to other identified influenza virus with other specified pneumonia; J15.1 Pneumonia due to Pseudomonas; N17.9 Acute kidney failure, unspecified; G93.49 Other encephalopathy; J44.1 Chronic obstructive pulmonary disease with (acute) exacerbation; J44.0 Chronic obstructive pulmonary disease with (acute) lower respiratory infection; J84.10 Pulmonary fibrosis, unspecified; E78.5 Hyperlipidemia, unspecified; I12.9 Hypertensive chronic kidney disease with stage 1 through stage 4 chronic kidney disease, or unspecified chronic kidney disease; E11.22 Type 2 diabetes mellitus with diabetic chronic kidney disease; E66.9 Obesity, unspecified; G47.33 Obstructive sleep apnea (adult) (pediatric); N18.3 Chronic kidney disease, stage 3 (moderate); K21.9 Gastro-esophageal reflux disease without esophagitis; R79.89 Other specified abnormal findings of blood chemistry; D86.9 Sarcoidosis, unspecified; Z87.891 Personal history of nicotine dependence; Z99.81 Dependence on supplemental oxygen; Z79.4 Long term (current) use of insulin; Z68.39 Body mass index [BMI] 39.0-39.9, adult; Z79.899 Other long term (current) drug therapy
CPT/HCPCS: 36415; 36600; 71045; 71250; 80048; 81001; 82803; 82962; 83605; 83735; 83880; 84439; 84443; 84484; 85025; 87040; 87070; 87077; 87086; 87088; 87186; 87205; 87449; 87633; 93005; 93306; 94640; 94668; 97802; 99284; J7030; Q9957; A4216; C8929; J1940

== ENCOUNTER → 2019-01-07 14:40 | Outpatient (CLI) | payer MEDICARE, OTHER, SELFPAY ==
[2018-12-30 16:09] VITALS: BMI 39.0
[2019-01-07 15:45] LABS: Hematocrit 39.7 % (37-47); Hemoglobin 12.5 g/dl (12.0-15.0); Mean Corp Hgb Conc 31.5 g/gl (32-36); Mean Corpuscular Hgb 29.5 pg (27.0-32.0); Mean Corpuscular Volume 93.6 fL (81-99); Mean Platelet Vol. 9.9 fl (6.2-12.0); Platelet Count 326 K/mm3 (150-450); RBC Distribution Width CV 14.7 % (11.6-14.6); Red Blood Count 4.24 M/mm3 (4.2-5.4)
[2019-01-07 15:48] LABS: Differential Indicated MANUAL DIFF; POSITIVE COUNT YES; POSITIVE DIFFERENTIAL YES; POSITIVE MORPHOLOGY YES
[2019-01-07 16:06] LABS: Albumin, Serum 2.7 g/dL (3.2-5.0); BUN 40 mg/dL (7-18); BUN/Creat Ratio 26.3 RATIO (10-20); Calcium,Total 9.8 mg/dL (8.5-10.1); Chloride 102 mmol/L (98-107); Creatinine, Serum 1.52 mg/dL (0.55-1.02); EST Glomerular Filtration Rate 36 mL/min (>60); Est Glom Filt Rate - Afr Amer 44 mL/min (>60); Glucose 313 mg/dL (74-106); Magnesium 1.4 mg/dL (1.6-2.6); Phosphorus 2.7 mg/dL (2.5-4.9); Potassium 5.6 mmol/L (3.5-5.1); Protein, Urine (Random) < 6.0 mg/dL (<11.9); Sodium Level 136 mmol/L (136-145)
[2019-01-07 16:09] LABS: PTHIN 33.5 pg/mL (18.4-80.1)
[2019-01-07 16:10] LABS: Vitamin D,25 Hydroxy 39.3 ng/mL (29.95-100.01)
[2019-01-07 16:20] LABS: Eosinophil 1 % (0-5); Lymphocyte 6 % (19-41); Monocyte 3 % (0-10); Neutrophil-Band 3 % (0-5); Neutrophil-Segmented 87 % (47-70); Platelet Estimate ADEQUATE (ADEQ); Red Cell Morphology NORM C+C NORMAL (NORM C&C); Total Cells Counted 100 (MANUAL DIFF)
[2019-01-10 13:49] LABS: Pathologist Review Reviewed
== END ==
PROVIDERS: Family Provider Internal Medicine; PCP Internal Medicine; Referring Provider Internal Medicine Nephrology; Visit Provider Internal Medicine Nephrology
DX: N18.4 Chronic kidney disease, stage 4 (severe) (principal); D63.1 Anemia in chronic kidney disease
CPT/HCPCS: 36415; 80069; 82306; 82570; 83735; 83970; 84156; 85025

== ENCOUNTER → 2019-01-21 12:08 | Outpatient (CLI) | payer MEDICARE, OTHER, SELFPAY ==
[2018-12-30 16:09] VITALS: BMI 39.0
--- NOTE | 2019-01-21 12:11 | RAD_ITS ---
STUDY: X-RAY CHEST REASON FOR EXAM: Female, 68 years old. Cough TECHNIQUE: Frontal and lateral views of the chest were obtained. COMPARISON: December 30, 2018 FINDINGS: Lines and tubes: None. Lungs: Under aerated. A dense opacity with an air-fluid level is now present in the left upper lung. There are increased interstitial markings in both lungs as well as minimal patchy airspace opacities in the mid right lung and left lung base. Pleura: Minimal blunting of the left costophrenic angle. Mediastinum/arthur: Calcified lymph nodes are scattered in the mediastinum and both arthur. Cardiovascular: Mildly enlarged cardiac silhouette. Central vascularity unremarkable. Thoracic aorta unremarkable. Soft tissues: Unremarkable. Bones: Degenerative changes in spine and shoulders. There is moderate dextroscoliosis of the lower thoracic spine. Upper abdomen: No demonstrated abnormality. RAD/Chest PA and Lateral IMPRESSION: Possible abscess in the left upper lung. Chronic changes are again seen in both lungs. There are improved airspace opacities in both lung bases and mid right lung. There is a small left pleural effusion. A CT of the chest was performed on the same day and is dictated separately. Electronically Signed: Debby Ferrari MD at 12:18 EST , Service support ,
== END ==
PROVIDERS: Family Provider Internal Medicine Pulmonary Disease; PCP Internal Medicine; Referring Provider Internal Medicine; Visit Provider Internal Medicine Pulmonary Disease
DX: J15.9 Unspecified bacterial pneumonia (principal)
CPT/HCPCS: 71046

== ENCOUNTER 2019-01-21 17:53 | Inpatient (IN) | payer MEDICARE, OTHER, SELFPAY ==
[2018-12-30 16:09] VITALS: BMI 39.0
[2019-01-21 18:20] VITALS: BMI 38.8
[2019-01-21 18:22] VITALS: BP 126/56; PULSE 87; RESP 18; TEMP 36.9; O2SAT 98
[2019-01-21 18:48] LABS: Differential Indicated MANUAL DIFF; Hematocrit 34.4 % (37-47); Hemoglobin 10.8 g/dl (12.0-15.0); Mean Corp Hgb Conc 31.4 g/gl (32-36); Mean Corpuscular Hgb 29.3 pg (27.0-32.0); Mean Corpuscular Volume 93.2 fL (81-99); Mean Platelet Vol. 9.2 fl (6.2-12.0); POSITIVE COUNT YES; POSITIVE DIFFERENTIAL YES; POSITIVE MORPHOLOGY YES; Platelet Count 323 K/mm3 (150-450); RBC Distribution Width CV 14.9 % (11.6-14.6); RBC Distribution Width SD 51.4 fl (35.1-43.9); Red Blood Count 3.69 M/mm3 (4.2-5.4); White Blood Count 14.9 K/mm3 (4.4-11.0)
[2019-01-21 18:52] LABS: Anion Gap 7 (5-15); BUN 42 mg/dL (7-18); BUN/Creat Ratio 26.9 RATIO (10-20); Chloride 106 mmol/L (98-107); Creatinine, Serum 1.56 mg/dL (0.55-1.02); EST Glomerular Filtration Rate 35 mL/min (>60); Est Glom Filt Rate - Afr Amer 42 mL/min (>60); Estimated Creatinine Clearance 24.79 ml/min; Glucose 203 mg/dL (74-106); Potassium 4.8 mmol/L (3.5-5.1); Sodium Level 137 mmol/L (136-145)
[2019-01-21 19:26] LABS: Anisocytosis 1+; Lymphocyte 4 % (19-41); Monocyte 13 % (0-10); Neutrophil-Segmented 83 % (47-70); Platelet Estimate ADEQUATE (ADEQ); Red Cell Morphology N CHROM NORMAL (NORM C&C); Total Cells Counted 100 (MANUAL DIFF)
[2019-01-21 19:36] VITALS: BMI 38.8
--- NOTE | 2019-01-21 19:40 | PCM.HP.STD ---
Problem List (1) Lung abscess Status: Acute (2) Shortness of breath Status: Acute (3) On home O2 Status: Chronic (4) Sarcoidosis Status: Chronic (5) Type 2 diabetes mellitus Status: Chronic (6) Chronic obstructive lung disease Status: Chronic Comment: mild (7) Hyperlipidemia Status: Chronic (8) CKD (chronic kidney disease), stage II Status: Chronic (9) Benign hypertension Status: Chronic History of Present Illness Date of Admission: 01/21/19 Chief Complaint: Shortness of breath and mild chest pain The patient is a 68 year old F with PMH as below who presents from home with continued shortness of breath, cough, mild chest pain. She was recently discharged from the hospital after being treated for community-acquired pneumonia at the end of November. She was found to have a sputum culture that grew Pseudomonas that was pansensitive. She was initially treated on Zosyn and transition to Levaquin on discharge. She went home on oxygen which she is not normally on and she is continued to need over the last month, and she has continued to cough. She saw her studio manager last week who had ordered a chest x-ray which she obtained today and when he reviewed the results he noticed that she had an air-fluid level in her left upper lobe and requested that she come to the hospital as a direct admit. She states that aside from the mild chest pain and her continued shortness of breath she feels okay. She denies any fevers or chills. Past Medical History Past Medical History (Chronic Problems): Chronic Problems On home O2 (Chronic) Sarcoidosis (Chronic) Type 2 diabetes mellitus (Chronic) Chronic obstructive lung disease (Chronic) mild Hyperlipidemia (Chronic) CKD (chronic kidney disease), stage II (Chronic) Benign hypertension (Chronic) Allergies clindamycin Allergy (Verified 12/30/18 13:42) Rash ciprofloxacin Adverse Reaction (Mild, Verified 12/30/18 13:42) Upset Stomach amoxicillin trihydrate [From Augmentin] Adverse Reaction (Verified 12/30/18 13:42) Nausea morphine Adverse Reaction (Verified 12/30/18 13:43) Nausea potassium clavulanate [From Augmentin] Adverse Reaction (Verified 12/30/18 13:42) Nausea Home Medications: Ambulatory Orders Medication Instructions Recorded Albuterol Aerosols [Ventolin 2.5 mg INHALATION Q6H PRN PRN 07/07/14 Aerosols] Fenofibric Acid (Choline) 135 mg PO DAILY 07/07/14 [Trilipix] Lactobacillus Combination No.4 1 each PO DAILY 07/07/14 [Probiotic] Loratadine [Claritin] 10 mg PO DAILY 07/07/14 Losartan Potassium [Cozaar] 50 mg PO DAILY 07/07/14 Montelukast [Singulair] 10 mg PO QHS 07/07/14 Alendronate Sodium [Fosamax] 70 mg PO QWEEK 06/21/17 Cholecalciferol (Vitamin D3) 1,000 unit PO DAILY 06/21/17 [Vitamin D3] Fluticasone 0.05% [Flonase Nasal 1 spray NASAL DAILY PRN PRN 06/21/17 [place]] Fluticasone/Salmeterol [Advair 1 puff INHALATION BID 06/21/17 500/50 Mcg Diskus] Insulin Detemir [Levemir FlexPen] 30 units SC QHS 06/21/17 [place]-3S/Dha/Epa/Fish Oil [Fish 1 each PO DAILY [facility] 06/21/17 Oil 1,200 mg Softgel] Pantoprazole Sodium [Protonix] 40 mg PO DAILY 06/21/17 Tiotropium [place] [Spiriva 2 puff IH DAILY 06/21/17 Respimat] Sour Scott Extract [Tart [place] 1,000 mg PO DAILY 01/07/18 Extract] Aspirin [Aspirin, Baby] 81 mg PO DAILY 12/30/18 Febuxostat [Uloric] 40 mg PO DAILY 12/30/18 Sitagliptin Phosphate [Januvia] 50 mg PO DAILY 12/30/18 Triamterene 37.5MG/Hctz 25MG 1 tablet PO DAILY 12/30/18 [Maxzide 37.5 mg-25 mg Tablet] Polyethylene Glycol 3350 [Miralax] 17 gm PO DAILY PRN 01/21/19 Ranitidine [Zantac] 150 mg PO DAILY 01/21/19 Surgical History: cholecystectomy, hysterectomy, total knee arthroplasty, - - Lumbar back surgery, foot surgery, Psychiatric History: No pertinent psych hx 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 Denies: Palpitations Respiratory: Reports: Cough, Shortness of Breath. Denies: Shortness of breath at rest, Sputum production Gastrointestinal: Denies: Abdominal Pain, Nausea, Vomiting Genitourinary: Denies: Dysuria Musculoskeletal: Denies: Joint Pain, Joint Tenderness Skin: Denies: Rash, Wounds Neurological: Denies: Numbness, Tingling, Focal weakness Psychiatric: Denies: Anxiety, Depression Hematologic/ Lymphatic: Denies: Easy Bruising, Easy Bleeding VTE Information - Inpt Only VTE Present on Admission: No Patient Problems: Active and Suspected Problems Lung abscess (Acute) - Physical Exam General: Alert, Oriented x3, Cooperative, No apparent distress HEENT: Atraumatic, PERRLA, EOMI, Normocephalic Oral: Dry Mucosa Neck: Supple, No JVD Lungs: Clear to auscultation, Normal air movement, No rhonchi, No rales, Diminished, Wheezes Cardiovascular: Regular rate, Regular Rhythm, Normal S1, Normal S2, No murmurs Abdomen: Soft, Non Tender, Non-Distended, No Hepato-splenomegaly Extremities: Capillary Refill Less than 3 Seconds, Edema - Baseline Skin: No rashes, No breakdown, - - Multiple areas of ecchymosis over bilateral extremities Neurological: Neuro grossly intact, Sensory exam intact to light touch and pain Psych/Mental Status: Normal Affect, Appropriate Vital Signs Temp Pulse Resp BP Pulse Ox 98.5 F 87 18 126/56 H 98 01/21/19 18:22 01/21/19 18:22 01/21/19 18:22 01/21/19 18:22 01/21/19 18:22 Oxygen Flow Rate (L/min) 2 Oxygen Delivery Method Nasal Cannula Weight: 198 lb 12.8 oz Body Mass Index (BMI) 38.8 Laboratory Tests Past 24 Hrs 01/21/19 01/21/19 18:32 18:32 WBC 14.9 H RBC 3.69 L Hgb 10.8 L Hct 34.4 L MCV 93.2 MCH 29.3 MCHC 31.4 L RDW 14.9 H RDW Differential 51.4 H Plt Count 323 MPV 9.2 Neut % (Auto) Not Reportable Absolute Neuts (auto) Not Reportable Total Counted 100 Neutrophils % (Manual) 83 H Lymphocytes % (Manual) 4 L Monocytes % (Manual) 13 H Diff Path Review May foll Platelet Estimate ADEQUATE RBC Morphology N CHROM Anisocytosis 1+ Sodium 137 Potassium 4.8 Chloride 106 Carbon Dioxide 24.0 Anion Gap 7 BUN 42 H Creatinine 1.56 H Estim Creat Clear Calc 24.79 Est GFR (MDRD) Af Amer 42 L Est GFR (MDRD) Non-Af 35 L BUN/Creatinine Ratio 26.9 H Glucose 203 H Calcium 9.0 Assessment/Plan All Active Problems Lung abscess (Acute) Shortness of breath (Acute) Recurrent aspiration pneumonia (Resolved) Chest pressure (Resolved) Vertigo (Resolved) 1. Pulmonary abscess secondary to recent community-acquired pneumonia secondary to Pseudomonas -We will initiate treatment with cefepime and vancomycin given that she continues to have a white count and now she has formation of an abscess. -She does have a history of sarcoid which is where her granulomas are coming from -We will consult infectious disease for improved antibiotic recommendations also will repeat chest x-ray on Thursday for the necessity of possible drainage -She is afebrile but does have a leukocytosis to 14 on motion. 2. COPD -Currently not in exacerbation we will continue with her home inhalers 3. IDDM 2 -We will continue with her home insulin medications and hold her oral Januvia -Accu-Cheks and sliding scale insulin 4. Hypertension/hyperlipidemia/CKD 3 -Systolic blood pressure stable and 126 -Continue with losartan, Trilipix, aspirin, triamterene and hydrochlorothiazide -We will continue to monitor her renal function though does appear to be at baseline with a creatinine of 1.56 DVT: Heparin Code Visit Inpatient E&M: 45529 Init Hosp L3
--- NOTE | 2019-01-21 19:46 | HP.PCM_ITS ---
Problem List (1) Lung abscess Status: Acute (2) Shortness of breath Status: Acute (3) On home O2 Status: Chronic (4) Sarcoidosis Status: Chronic (5) Type 2 diabetes mellitus Status: Chronic (6) Chronic obstructive lung disease Status: Chronic Comment: mild (7) Hyperlipidemia Status: Chronic (8) CKD (chronic kidney disease), stage II Status: Chronic (9) Benign hypertension Status: Chronic History of Present Illness Date of Admission: 01/21/19 Chief Complaint: Shortness of breath and mild chest pain The patient is a 68 year old F with PMH as below who presents from home with continued shortness of breath, cough, mild chest pain. She was recently discharged from the hospital after being treated for community-acquired pneumonia at the end of November. She was found to have a sputum culture that grew Pseudomonas that was pansensitive. She was initially treated on Zosyn and transition to Levaquin on discharge. She went home on oxygen which she is not normally on and she is continued to need over the last month, and she has continued to cough. 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 She states that aside from the mild chest pain and her continued shortness of breath she feels okay. She denies any fevers or chills. Past Medical History Past Medical History (Chronic Problems): Chronic Problems On home O2 (Chronic) Sarcoidosis (Chronic) Type 2 diabetes mellitus (Chronic) Chronic obstructive lung disease (Chronic) mild Hyperlipidemia (Chronic) CKD (chronic kidney disease), stage II (Chronic) Benign hypertension (Chronic) Allergies clindamycin Allergy (Verified 12/30/18 13:42) Rash ciprofloxacin Adverse Reaction (Mild, Verified 12/30/18 13:42) Upset Stomach amoxicillin trihydrate [From Augmentin] Adverse Reaction (Verified 12/30/18 13:42) Nausea morphine Adverse Reaction (Verified 12/30/18 13:43) Nausea potassium clavulanate [From Augmentin] Adverse Reaction (Verified 12/30/18 13:42) Nausea Home Medications: Ambulatory Orders Medication Instructions Recorded Albuterol Aerosols [Ventolin 2.5 mg INHALATION Q6H PRN PRN 07/07/14 Aerosols] Fenofibric Acid (Choline) 135 mg PO DAILY 07/07/14 [Trilipix] Lactobacillus Combination No.4 1 each PO DAILY 07/07/14 [Probiotic] Loratadine [Claritin] 10 mg PO DAILY 07/07/14 Losartan Potassium [Cozaar] 50 mg PO DAILY 07/07/14 Montelukast [Singulair] 10 mg PO QHS 07/07/14 Alendronate Sodium [Fosamax] 70 mg PO QWEEK 06/21/17 Cholecalciferol (Vitamin D3) 1,000 unit PO DAILY 06/21/17 [Vitamin D3] Fluticasone 0.05% [Flonase Nasal 1 spray NASAL DAILY PRN PRN 06/21/17 [place]] Fluticasone/Salmeterol [Advair 1 puff INHALATION BID 06/21/17 500/50 Mcg Diskus] Insulin Detemir [Levemir FlexPen] 30 units SC QHS 06/21/17 [place]-3S/Dha/Epa/Fish Oil [Fish 1 each PO DAILY [facility] 06/21/17 Oil 1,200 mg Softgel] Pantoprazole Sodium [Protonix] 40 mg PO DAILY 06/21/17 Tiotropium [place] [Spiriva 2 puff IH DAILY 06/21/17 Respimat] Sour Scott Extract [Tart [place] 1,000 mg PO DAILY 01/07/18 Extract] Aspirin [Aspirin, Baby] 81 mg PO DAILY 12/30/18 Febuxostat [Uloric] 40 mg PO DAILY 12/30/18 Sitagliptin Phosphate [Januvia] 50 mg PO DAILY 12/30/18 Triamterene 37.5MG/Hctz 25MG 1 tablet PO DAILY 12/30/18 [Maxzide 37.5 mg-25 mg Tablet] Polyethylene Glycol 3350 [Miralax] 17 gm PO DAILY PRN 01/21/19 Ranitidine [Zantac] 150 mg PO DAILY 01/21/19 Surgical History: cholecystectomy, hysterectomy, total knee arthroplasty, - - Lumbar back surgery, foot surgery, Psychiatric History: No pertinent psych hx 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 Denies: Palpitations Respiratory: Reports: Cough, Shortness of Breath. Denies: Shortness of breath at rest, Sputum production Gastrointestinal: Denies: Abdominal Pain, Nausea, Vomiting Genitourinary: Denies: Dysuria Musculoskeletal: Denies: Joint Pain, Joint Tenderness Skin: Denies: Rash, Wounds Neurological: Denies: Numbness, Tingling, Focal weakness Psychiatric: Denies: Anxiety, Depression Hematologic/ Lymphatic: Denies: Easy Bruising, Easy Bleeding VTE Information - Inpt Only VTE Present on Admission: No Patient Problems: Active and Suspected Problems Lung abscess (Acute) - Physical Exam General: Alert, Oriented x3, Cooperative, No apparent distress HEENT: Atraumatic, PERRLA, EOMI, Normocephalic Oral: Dry Mucosa Neck: Supple, No JVD Lungs: Clear to auscultation, Normal air movement, No rhonchi, No rales, Diminished, Wheezes Cardiovascular: Regular rate, Regular Rhythm, Normal S1, Normal S2, No murmurs Abdomen: Soft, Non Tender, Non-Distended, No Hepato-splenomegaly Extremities: Capillary Refill Less than 3 Seconds, Edema - Baseline Skin: No rashes, No breakdown, - - Multiple areas of ecchymosis over bilateral extremities Neurological: Neuro grossly intact, Sensory exam intact to light touch and pain Psych/Mental Status: Normal Affect, Appropriate Vital Signs Temp Pulse Resp BP Pulse Ox 98.5 F 87 18 126/56 H 98 01/21/19 18:22 01/21/19 18:22 01/21/19 18:22 01/21/19 18:22 01/21/19 18:22 Oxygen Flow Rate (L/min) 2 Oxygen Delivery Method Nasal Cannula Weight: 198 lb 12.8 oz Body Mass Index (BMI) 38.8 Laboratory Tests Past 24 Hrs 01/21/19 01/21/19 18:32 18:32 WBC 14.9 H RBC 3.69 L Hgb 10.8 L Hct 34.4 L MCV 93.2 MCH 29.3 MCHC 31.4 L RDW 14.9 H RDW Differential 51.4 H Plt Count 323 MPV 9.2 Neut % (Auto) Not Reportable Absolute Neuts (auto) Not Reportable Total Counted 100 Neutrophils % (Manual) 83 H Lymphocytes % (Manual) 4 L Monocytes % (Manual) 13 H Diff Path Review May foll Platelet Estimate ADEQUATE RBC Morphology N CHROM Anisocytosis 1+ Sodium 137 Potassium 4.8 Chloride 106 Carbon Dioxide 24.0 Anion Gap 7 BUN 42 H Creatinine 1.56 H Estim Creat Clear Calc 24.79 Est GFR (MDRD) Af Amer 42 L Est GFR (MDRD) Non-Af 35 L BUN/Creatinine Ratio 26.9 H Glucose 203 H Calcium 9.0 Assessment/Plan All Active Problems Lung abscess (Acute) Shortness of breath (Acute) Recurrent aspiration pneumonia (Resolved) Chest pressure (Resolved) Vertigo (Resolved) 1. Pulmonary abscess secondary to recent community-acquired pneumonia secondary to Pseudomonas -We will initiate treatment with cefepime and vancomycin given that she continues to have a white count and now she has formation of an abscess. -She does have a history of sarcoid which is where her granulomas are coming from -We will consult infectious disease for improved antibiotic recommendations also will repeat chest x-ray on Thursday for the necessity of possible drainage -She is afebrile but does have a leukocytosis to 14 on motion. 2. COPD -Currently not in exacerbation we will continue with her home inhalers 3. IDDM 2 -We will continue with her home insulin medications and hold her oral Januvia -Accu-Cheks and sliding scale insulin 4. Hypertension/hyperlipidemia/CKD 3 -Systolic blood pressure stable and 126 -Continue with losartan, Trilipix, aspirin, triamterene and hydrochlorothiazide -We will continue to monitor her renal function though does appear to be at baseline with a creatinine of 1.56 DVT: Heparin Code Visit Inpatient E&M: 28074 Init Hosp L3
[2019-01-21 19:50] LABS: Absolute Neutrophil Count 12.4 X10^3/uL (2.0-7.7)
[2019-01-21] MEDS: Heparin Injection (Vial) 5,000 UNIT/ML VIAL 5000 UNIT SC (22:25)
[2019-01-21] MEDS: Insulin Lispro 100 UNIT/ML INSULN.PEN SQ (22:32)
[2019-01-21] MEDS: Montelukast 10 MG Tablet PO (22:33)
[2019-01-21 22:40] LABS: Bedside Glucose 217 mg/dL (70-110)
[2019-01-21 23:23] VITALS: PULSE 95; RESP 30; O2SAT 96
[2019-01-21] MEDS: Albuterol 2.5 MG/3 ML VIAL.NEB. INHALATION (23:23)
[2019-01-22] VITALS (11 sets, daily range): BP systolic 122–149; BP diastolic 55–72; PULSE 79–106; RESP 16–32; TEMP 36.6–37.7; O2SAT 93–97
--- NOTE | 2019-01-22 00:55 | PCM.RX.CS ---
Consult Pharmacy has been consulted to manage selected antiobiotic: Vancomycin Type of Consult: New start Suspected Infection: Pneumonia Prior Doses of Antibiotics Received/Current Regimen: Medications Discontinued Medications Vancomycin HCl 1,250 mg/ (Sodium Chloride) 275 mls @ 167 mls/hr IV X1 ONE Stop: 01/21/19 21:08 Last Admin: 01/21/19 20:25 Dose: 167 mls/hr Vancomycin 1000 mg IV q24h will be started 01/22/19 1900 Labs: Sodium 137 mmol/L (136-145) 01/21/19 18:32 Potassium 4.8 mmol/L (3.5-5.1) 01/21/19 18:32 Chloride 106 mmol/L (98-107) 01/21/19 18:32 Carbon Dioxide 24.0 mmol/L (21.0-32.0) 01/21/19 18:32 Anion Gap 7 (5-15) 01/21/19 18:32 BUN 42 mg/dL (7-18) H 01/21/19 18:32 Creatinine 1.56 mg/dL (0.55-1.02) H 01/21/19 18:32 Est GFR (MDRD) Af Amer 42 mL/min (>60) L 01/21/19 18:32 Est GFR (MDRD) Non-Af 35 mL/min (>60) L 01/21/19 18:32 BUN/Creatinine Ratio 26.9 RATIO (10-20) H 01/21/19 18:32 Glucose 203 mg/dL (74-106) H 01/21/19 18:32 Weight used for dosin kg Estimated Creatinine Clearance: 25 ml/min Goal Trough: 15-20 mcg/mL Pharmacy Plan for Drug Dosing: Pharmacy Service will continue to monitor and adjust dosing as required. Follow-Up Labs: Trough Vancomycin Labs to be done on [date and time ordered]: 01/23/19 1830 before 3rd dose
[2019-01-22] MEDS: Albuterol 2.5 MG/3 ML VIAL.NEB. INHALATION ×2 (05:35→16:08)
[2019-01-22 06:36] LABS: Bedside Glucose 125 mg/dL (70-110)
[2019-01-22] MEDS: Budesonide Respules 0.5 MG/2 ML AMPUL.NEB. INHALATION ×2 (07:19→19:32)
[2019-01-22 07:22] LABS: Basophil# 0.05 X10^3/uL; Hematocrit 33.2 % (37-47); Hemoglobin 10.3 g/dl (12.0-15.0); Mean Corpuscular Hgb 29.2 pg (27.0-32.0); Mean Corpuscular Volume 94.1 fL (81-99); Mean Platelet Vol. 9.6 fl (6.2-12.0); Monocyte# 1.22 X10^3/uL; Platelet Count 321 K/mm3 (150-450); RBC Distribution Width CV 15.2 % (11.6-14.6); RBC Distribution Width SD 51.7 fl (35.1-43.9); Red Blood Count 3.53 M/mm3 (4.2-5.4); White Blood Count 12.1 K/mm3 (4.4-11.0)
[2019-01-22] MEDS: Ipratropium/Albuterol Sulfate 3 ML AMPUL.NEB INHALATION ×3 (07:35→19:32)
[2019-01-22 07:48] LABS: Differential Indicated SCAN CRITERIA MET; POSITIVE COUNT YES; POSITIVE DIFFERENTIAL NO; POSITIVE MORPHOLOGY YES
[2019-01-22 07:49] LABS: Anion Gap 9 (5-15); BUN 37 mg/dL (7-18); BUN/Creat Ratio 27.8 RATIO (10-20); Calcium,Total 8.9 mg/dL (8.5-10.1); Chloride 107 mmol/L (98-107); Creatinine, Serum 1.33 mg/dL (0.55-1.02); EST Glomerular Filtration Rate 42 mL/min (>60); Est Glom Filt Rate - Afr Amer 51 mL/min (>60); Estimated Creatinine Clearance 29.08 ml/min; Glucose 108 mg/dL (74-106); Potassium 4.4 mmol/L (3.5-5.1); Sodium Level 141 mmol/L (136-145)
[2019-01-22 08:07] LABS: Eosinophil 2 % (0-5); Lymphocyte 13 % (19-41); Metamyelocyte 2 % (0-1); Monocyte 6 % (0-10); Myelocyte 2 (0-0); Neutrophil-Band 3 % (0-5); Neutrophil-Segmented 71 % (47-70); Promyelocyte 1 (0-0); Total Cells Counted 100 (MANUAL DIFF)
[2019-01-22 08:08] LABS: Platelet Estimate ADEQUATE (ADEQ); Red Cell Morphology NORM C+C NORMAL (NORM C&C); Scan Smear per Review Criteria MANUAL DIFF
[2019-01-22 08:09] LABS: Absolute Neutrophil Count 8.9 X10^3/uL (2.0-7.7)
[2019-01-22] MEDS: Aspirin 81 MG TAB.CHEW PO (09:18)
[2019-01-22] MEDS: Fenofibrate 145 MG Tablet PO (09:19)
[2019-01-22] MEDS: Loratadine 10 MG Tablet PO (09:20)
[2019-01-22] MEDS: Losartan Potassium 50 MG Tablet PO (09:21)
[2019-01-22] MEDS: Triamterene 75MG/Hctz 50MG Tablet 0.5 TABLET PO (09:25)
[2019-01-22] MEDS: Famotidine 20 MG Tablet PO (09:26)
[2019-01-22] MEDS: Pantoprazole Sodium 40 MG Tablet PO (09:26)
[2019-01-22] MEDS: Febuxostat 40 MG TABLET PO (09:27)
[2019-01-22] MEDS: Heparin Injection (Vial) 5,000 UNIT/ML VIAL 5000 UNIT SC ×2 (09:30→22:09)
[2019-01-22] MEDS: guaiFENesin 1,200 MG Tablet 1200 MG PO ×2 (09:33→22:09)
[2019-01-22] MEDS: Acetaminophen 500 MG Tablet 1000 MG PO ×2 (09:38→18:27)
--- NOTE | 2019-01-22 09:53 | CT_ITS ---
We are attempting to reach Anahi Gutierrez MD to discuss findings. An addendum with communication details will be sent when the communication is complete. STUDY: CT CHEST WITHOUT CONTRAST REASON FOR EXAM: Female, 68 years old. Cough, shortness of breath RADIATION DOSAGE (If Supplied By Facility): CTDIvol = ( 19.57 ) mGy, DLP = ( 694.49 ) mGycm TECHNIQUE: Transaxial imaging of the chest was performed without intravenous contrast material. Sagittal and coronal reconstructions were performed. Individualized dose optimization techniques were used for this CT. COMPARISON: Chest radiographs dated January 21, 2019; chest CT dated December 31, 2018 FINDINGS: Lines and tubes: None. Airways: Normal in appearance. Lungs: Numerous scattered calcified granulomas. Patchy airspace opacities are again seen in the right middle and lower lobes. There is stable biapical scarring. There is dense opacity in the lateral segment of the left upper lobe with an air-fluid level. Coarse interstitial markings are again seen in the periphery of both lungs. Pleura: Minimal fluid in the left pleural margin. Mediastinum: Numerous calcified lymph nodes scattered in the mediastinum. Chrissy: Numerous calcified lymph nodes in both chrissy. Cardiac: Normal size heart. Scattered coronary artery calcifications. Vascular: Aorta: Moderate vascular calcifications. Pulmonary arteries: Unremarkable. Arterial: Scattered vascular calcifications. Venous: Unremarkable. Soft tissues: Thyroid is normal in size. There are coarse calcifications in the right lobe without a discrete mass. Bones: Moderate degenerative changes. Upper abdomen: No acute or significant pathology. CT/Chest without Contrast IMPRESSION: There is dense opacity in the lateral segment of the left upper lobe with an air-fluid level, either representing an abscess or infected cavity. There is a small left pleural effusion. There has been improvement in the scattered consolidations seen previously in both lower lobes, right upper lobe and right middle lobe. Electronically Signed: Debby Ferrari MD at 11:28 EST , Service support ,
--- NOTE | 2019-01-22 10:20 | NURSING ---
paged for the second time through the triple drum operator for the consult.
--- NOTE | 2019-01-22 10:46 | PCM.PROGNOTE ---
Patient Problems: Active and Suspected Problems Lung abscess (Acute) Subjective: Chief complaint: Follow-up after admission for probable left flank abscess, recent history of pseudomonas aeruginosa community-acquired pneumonia. Patient seen and examined. No acute events overnight. Still complained of shortness of breath but improved and still complaining of left upper chest pain. No sputum production, denies fever or chills. Denied abdominal pain, nausea vomiting. She is afebrile, blood pressure and heart rate are stable, pulse ox is 95% on 2 L. - Physical Exam General: Alert, Oriented x3, Cooperative, - - Minimally short of breath. HEENT: Atraumatic, PERRLA, EOMI, Normocephalic Oral: Moist Mucosa, No Gingival or Mucosal Lesions/ Ulcerations Neck: Supple, No JVD, Negative Carotid Bruits, Trachea Midline, Thyroid Normal Size and Texture Lungs: Clear to auscultation, No rhonchi, No wheeze, No rales, Diminished Cardiovascular: Regular rate, Regular Rhythm, Normal S1, Normal S2, No murmurs, PMI Normal Abdomen: Bowel Sounds Present, Soft, Non Tender, No Hepato-splenomegaly, Obese Extremities: No clubbing, No cyanosis, No edema Skin: No rashes, No breakdown Lymphatic: No Cervical, Supraclavicular, or Inguinal Adenopathy Neurological: Cranial nerves II-XII grossly intact, Motor Exam 5/5 strength throughout Psych/Mental Status: Normal Affect, Appropriate, Alert and oriented to time, place, person, mood and affect Vital Signs Temp Pulse Resp BP Pulse Ox 98.6 F 98 20 H 124/58 H 95 01/22/19 09:15 01/22/19 09:15 01/22/19 09:15 01/22/19 09:15 01/22/19 09:15 Oxygen Flow Rate (L/min) 2 Oxygen Delivery Method Nasal Cannula Weight: 198 lb 12.8 oz Body Mass Index (BMI) 38.8 Intake and Output for Last 24 Hours 01/20/19 01/21/19 01/22/19 23:59 23:59 23:59 Intake Total 1250 / 1250 Balance 1250 / 1250 Laboratory Tests Past 24 Hrs 01/21/19 01/21/19 01/22/19 18:32 18:32 06:18 WBC 14.9 H 12.1 H RBC 3.69 L 3.53 L Hgb 10.8 L 10.3 L Hct 34.4 L 33.2 L MCV 93.2 94.1 MCH 29.3 29.2 MCHC 31.4 L 31.0 L RDW 14.9 H 15.2 H RDW Differential 51.4 H 51.7 H Plt Count 323 321 MPV 9.2 9.6 Immature Gran % (Auto) [employer] WORKING Neut % (Auto) Not Reportable [employer] Lymph % (Auto) INS[employer] [place] % (Auto) [employer] Eos % (Auto) [employer] Baso % (Auto) [employer] Absolute Neuts (auto) 12.4 H 8.9 H Absolute Lymphs (auto) 0.60 L 1.80 Total Counted 100 100 Neutrophils % (Manual) 83 H 71 H Band Neutrophils % 3 Lymphocytes % (Manual) 4 L 13 L Monocytes % (Manual) 13 H 6 Eosinophils % (Manual) 2 Metamyelocytes % 2 H Myelocytes % 2 H Promyelocytes % 1 H Diff Path Review May foll May foll Platelet Estimate ADEQUATE ADEQUATE RBC Morphology N CHROM NORM C+C Anisocytosis 1+ Sodium 137 Potassium 4.8 Chloride 106 Carbon Dioxide 24.0 Anion Gap 7 BUN 42 H Creatinine 1.56 H Estim Creat Clear Calc 24.79 Est GFR (MDRD) Af Amer 42 L Est GFR (MDRD) Non-Af 35 L BUN/Creatinine Ratio 26.9 H Glucose 203 H Calcium 9.0 01/22/19 06:18 WBC RBC Hgb Hct MCV MCH MCHC RDW RDW Differential Plt Count MPV Immature Gran % (Auto) Neut % (Auto) Lymph % (Auto) [place] % (Auto) Eos % (Auto) Baso % (Auto) Absolute Neuts (auto) Absolute Lymphs (auto) Total Counted Neutrophils % (Manual) Band Neutrophils % Lymphocytes % (Manual) Monocytes % (Manual) Eosinophils % (Manual) Metamyelocytes % Myelocytes % Promyelocytes % Diff Path Review Platelet Estimate RBC Morphology Anisocytosis Sodium 141 Potassium 4.4 Chloride 107 Carbon Dioxide 25.0 Anion Gap 9 BUN 37 H Creatinine 1.33 H Estim Creat Clear Calc 29.08 Est GFR (MDRD) Af Amer 51 L Est GFR (MDRD) Non-Af 42 L BUN/Creatinine Ratio 27.8 H Glucose 108 H Calcium 8.9 POC Glucose 01/22/19 01/21/19 06:22 22:17 POC Glucose 125 H 217 H Medical Necessity - Tobacco Use Smoking Status: Former smoker Tobacco Use: Cigarettes Assessment/Plan All Active Problems Lung abscess (Acute) This is a 68 years old female patient 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 # left upper lobe lung abscess/infected cavity: Started on IV cefepime and vancomycin. She is afebrile, blood pressure and heart rate are maintained, pulse ox is 95% on 2 L. She does have leukocytosis, white blood cell count is trending down. CT scan chest done today, findings reviewed, confirming left upper lobe lung abscess versus infected cavity, small left pleural effusion, improvement of the bilateral lower lobe consolidation from the recent pneumonia. Infectious disease consulted. Plan: Continue same treatment, continue bronchodilators, pulmonary consult, repeat CBC and BMP tomorrow morning, pro time and INR, PTT. Patient may need CT-guided aspiration of the lung abscess. #2 recent history of bilateral pseudomonas aeruginosa community-acquired pneumonia/sepsis/influenza A: She was discharged from the hospital on January 12, 2019 on Levaquin for 7 days and Tamiflu as well as prednisone taper. Now, she is on IV cefepime and vancomycin as above. Plan as above. #3 COPD/chronic respiratory failure: On home oxygen at 2 L, she has been on 2 L at this time. She is on DuoNeb every 6 hours, albuterol as needed. #4 stage II chronic kidney disease: Baseline kidney function has been around 1.5-2 mg/dL. Admission creatinine is 1.56, improved down to 1.33 today. Plan to monitor. #5 type 2 diabetes mellitus: She is on ADA diet, Lantus daily, and sliding scale. Plan to continue same treatment, continue Accu-Cheks. #6 hypertension: Blood pressure stable, continue losartan and Maxide. #7 hyperlipidemia: Continue TriCor. #8 DVT prophylaxis: Subcu heparin. This note was generated with [employer] software. It may contain incorrect words, spelling, and punctuation that were not noted in checking the note before signing. Code Visit Inpatient E&M: 41053 Subs Hosp L2
--- NOTE | 2019-01-22 11:00 | CM.UR ---
Addendum entered by Debby Albright 01/22/19 15:43: Faxed resumption of care order to [facility] and then placed green sheet for the floor to call and notified them when the patient is discharged. Irineo Albright RN, CCM. Original Note: RN CM Face to Face with patient for initial transition planning/care coordination assessment. RN CM introduced self and role at [facility]. Patient sitting in chair, alert and oriented. Patient willing to participate in assessment and is able to answer all questions appropriately. Care providers, pharmacy, and demographics verified. Patient wishes to discharge home and would like to resume HHC with [facility]. Patient states she has no further needs or concerns at this time. CM to follow for discharge planning needs that may arise. PCP: Azra Specialists: Danny, event staff; Quintin, band sewer Preferred Pharm[facility]: [facility]: Yes Living Will/HPOA: Yes, Willian Ling. Copies are not on file. Reminded her to have bring them in so they can be copied. LNOK: Living Arrangements: Patient lives with in 1 story house with 1 step to enter the home. Patient mostly independent, requires some help from Transportation: DME/HHC: Patient states she has BSC, cane, walker, bipap, and oxygen from [facility]. At previous discharge MOW was arranged but they have since stopped doing that due to not really liking the food. Disposition Plan: Patient to discharge home with HHC, family support, and follow-up plans in place. Irineo Albright RN, CCM.
[2019-01-22 11:09] LABS: International Normalized Ratio 1.1; Prothrombin Time (Protime)PT. 14.6 SECONDS (11.7-14.9)
[2019-01-22] MEDS: Insulin Lispro 100 UNIT/ML INSULN.PEN SQ ×3 (11:40→22:06)
--- NOTE | 2019-01-22 11:47 | EKG12_ITS ---
Test Reason : CP Blood Pressure : / mmHG Vent. Rate : 083 BPM Atrial Rate : 083 BPM P-R Int : 142 ms QRS Dur : 112 ms QT Int : 370 ms P-R-T Axes : 043 096 023 degrees QTc Int : 434 ms Normal sinus rhythm with sinus arrhythmia Low voltage QRS Septal infarct (cited on or before 07-JUL-2014) Abnormal ECG When compared with ECG of 30-DEC-2018 13:40, Right bundle branch block is no longer Present Confirmed by IRA FELIX, KEREN ([id number]), fan mail editor DAMIEN NO ([id number]) on 01/27/2019 3:58:30 PM Referred By: Veronica Oquendo Confirmed By:KEREN ROTH MD
--- NOTE | 2019-01-22 13:51 | CPS ---
PT IS BRINGING IN HER OWN PEP DEVICE FOR CPT.
[2019-01-22 14:56] LABS: Bedside Glucose 157 mg/dL (70-110)
[2019-01-22 17:10] LABS: Bedside Glucose 220 mg/dL (70-110)
[2019-01-22] MEDS: Benzonatate 100 MG Capsule PO (18:29)
[2019-01-22] MEDS: Vancomycin IV 1,000 MG/200 ML BAG 200 MG IV (18:51)
[2019-01-22] MEDS: 0.9% NaCl Peripheral Flush Adult/Peds IV (18:51)
[2019-01-22] MEDS: Montelukast 10 MG Tablet PO (22:09)
[2019-01-22 22:36] LABS: Bedside Glucose 176 mg/dL (70-110)
[2019-01-23] VITALS (8 sets, daily range): BP systolic 108–145; BP diastolic 54–96; PULSE 68–101; RESP 16–20; TEMP 36.8–37.8; O2SAT 94–97
[2019-01-23 06:56] LABS: Bedside Glucose 112 mg/dL (70-110)
[2019-01-23 06:57] LABS: Anion Gap 9 (5-15); BUN 30 mg/dL (7-18); BUN/Creat Ratio 21.3 RATIO (10-20); Calcium,Total 8.8 mg/dL (8.5-10.1); Chloride 106 mmol/L (98-107); Creatinine, Serum 1.41 mg/dL (0.55-1.02); EST Glomerular Filtration Rate 39 mL/min (>60); Est Glom Filt Rate - Afr Amer 48 mL/min (>60); Estimated Creatinine Clearance 27.43 ml/min; Glucose 121 mg/dL (74-106); Potassium 4.4 mmol/L (3.5-5.1); Sodium Level 139 mmol/L (136-145)
[2019-01-23] MEDS: Ipratropium/Albuterol Sulfate 3 ML AMPUL.NEB INHALATION ×3 (07:07→18:50)
[2019-01-23] MEDS: Budesonide Respules 0.5 MG/2 ML AMPUL.NEB. INHALATION ×2 (07:07→18:50)
[2019-01-23 07:22] LABS: Differential Indicated MANUAL DIFF; Hematocrit 32.8 % (37-47); Hemoglobin 10.2 g/dl (12.0-15.0); Mean Corp Hgb Conc 31.1 g/gl (32-36); Mean Corpuscular Hgb 29.7 pg (27.0-32.0); Mean Corpuscular Volume 95.3 fL (81-99); Mean Platelet Vol. 9.6 fl (6.2-12.0); POSITIVE COUNT YES; POSITIVE DIFFERENTIAL NO; POSITIVE MORPHOLOGY YES; Platelet Count 342 K/mm3 (150-450); RBC Distribution Width CV 14.9 % (11.6-14.6); RBC Distribution Width SD 50.2 fl (35.1-43.9); Red Blood Count 3.44 M/mm3 (4.2-5.4); White Blood Count 12.9 K/mm3 (4.4-11.0)
[2019-01-23 08:03] LABS: Eosinophil 1 % (0-5); Lymphocyte 8 % (19-41); Metamyelocyte 2 % (0-1); Monocyte 5 % (0-10); Myelocyte 4 (0-0); Neutrophil-Band 2 % (0-5); Neutrophil-Segmented 78 % (47-70); Red Cell Morphology NORM C+C NORMAL (NORM C&C); Total Cells Counted 100 (MANUAL DIFF)
[2019-01-23 08:04] LABS: Absolute Lymphocyte Count 1.03 X10^3/ul (0.83-4.51); Absolute Neutrophil Count 10.3 X10^3/uL (2.0-7.7); Lymphocyte # 1.03 X10^3/ul (4.0); Neutrophil # 10.31 X10^3/uL (2.7-7.7); Platelet Estimate ADEQUATE (ADEQ)
[2019-01-23] MEDS: guaiFENesin 1,200 MG Tablet 1200 MG PO (08:14)
[2019-01-23] MEDS: Triamterene 75MG/Hctz 50MG Tablet 0.5 TABLET PO (08:15)
[2019-01-23] MEDS: Loratadine 10 MG Tablet PO (08:16)
[2019-01-23] MEDS: Heparin Injection (Vial) 5,000 UNIT/ML VIAL 5000 UNIT SC (08:16)
[2019-01-23] MEDS: Fluticasone 0.05% 1 SPRAY NASAL.SRY NASAL (08:17)
[2019-01-23] MEDS: Aspirin 81 MG TAB.CHEW PO (08:18)
[2019-01-23] MEDS: Losartan Potassium 50 MG Tablet PO (08:19)
[2019-01-23] MEDS: Pantoprazole Sodium 40 MG Tablet PO (08:19)
[2019-01-23] MEDS: Febuxostat 40 MG TABLET PO (08:20)
--- NOTE | 2019-01-23 08:28 | PCM.PROGNOTE ---
Patient Problems: Active and Suspected Problems Lung abscess (Acute) Subjective: Chief complaint: Follow-up after admission for left upper lung abscess, recent history of pseudomonas aeruginosa community-acquired pneumonia. Patient seen and examined. No acute events overnight. This morning, she is feeling better, less short of breath. Still complaining of cough with clear sputum. Denies fever or chills. She remained on 2.5 l of oxygen, other vital signs are stable. - Physical Exam General: Alert, Oriented x3, Cooperative, No apparent distress HEENT: Atraumatic, PERRLA, EOMI, Normocephalic Oral: Moist Mucosa, No Gingival or Mucosal Lesions/ Ulcerations Neck: Supple, No JVD, Negative Carotid Bruits, Trachea Midline, Thyroid Normal Size and Texture Lungs: Clear to auscultation, No rhonchi, No wheeze, No rales, Diminished Cardiovascular: Regular rate, Regular Rhythm, Normal S1, Normal S2, No murmurs, PMI Normal Abdomen: Bowel Sounds Present, Soft, Non Tender, Non-Distended, No Hepato-splenomegaly, Obese Extremities: No clubbing, No cyanosis, No edema Skin: No rashes, No breakdown Lymphatic: No Cervical, Supraclavicular, or Inguinal Adenopathy Neurological: Cranial nerves II-XII grossly intact, Motor Exam 5/5 strength throughout Psych/Mental Status: Normal Affect, Appropriate, Alert and oriented to time, place, person, mood and affect Vital Signs Temp Pulse Resp BP Pulse Ox 98.6 F 101 H 20 H 116/96 H 96 01/23/19 08:02 01/23/19 08:02 01/23/19 08:02 01/23/19 08:02 01/23/19 08:02 Oxygen Flow Rate (L/min) 2 Oxygen Delivery Method Nasal Cannula Weight: 198 lb 12.8 oz Body Mass Index (BMI) 38.8 Intake and Output for Last 24 Hours 01/21/19 01/22/19 01/23/19 23:59 23:59 23:59 Intake Total 1969 1067.8 / 1067.8 Output Total 1100 / 1100 Balance 1969 -32.2 / -32.2 Laboratory Tests Past 24 Hrs 01/22/19 01/23/19 01/23/19 10:46 05:21 05:21 WBC 12.9 H RBC 3.44 L Hgb 10.2 L Hct 32.8 L MCV 95.3 MCH 29.7 MCHC 31.1 L RDW 14.9 H RDW Differential 50.2 H Plt Count 342 MPV 9.6 Neut % (Auto) Not Reportable Absolute Neuts (auto) 10.3 H Absolute Lymphs (auto) 1.03 Total Counted 100 Neutrophils % (Manual) 78 H Band Neutrophils % 2 Lymphocytes % (Manual) 8 L Monocytes % (Manual) 5 Eosinophils % (Manual) 1 Metamyelocytes % 2 H Myelocytes % 4 H Diff Path Review May foll Platelet Estimate ADEQUATE RBC Morphology NORM C+C PT 14.6 INR 1.1 APTT 30.0 Sodium 139 Potassium 4.4 Chloride 106 Carbon Dioxide 24.0 Anion Gap 9 BUN 30 H Creatinine 1.41 H Estim Creat Clear Calc 27.43 Est GFR (MDRD) Af Amer 48 L Est GFR (MDRD) Non-Af 39 L BUN/Creatinine Ratio 21.3 H Glucose 121 H Calcium 8.8 POC Glucose 01/23/19 01/22/19 01/22/19 06:49 22:01 16:55 POC Glucose 112 H 176 H 220 H 01/22/19 11:38 POC Glucose 157 H Clinical Impression(s) from Imaging Studies Chest CT 01/22/19 09:53 IMPRESSION: There is dense opacity in the lateral segment of the left upper lobe with an air-fluid level, either representing an abscess or infected cavity. There is a small left pleural effusion. There has been improvement in the scattered consolidations seen previously in both lower lobes, right upper lobe and right middle lobe. Electronically Signed: Debby Ferrari MD at 11:28 EST , Service support , ADDENDUM: 01/22/19 1149 IMPRESSION: There is dense opacity in the lateral segment of the left upper lobe with an air-fluid level, either representing an abscess or infected cavity. There is a small left pleural effusion. There has been improvement in the scattered consolidations seen previously in both lower lobes, right upper lobe and right middle lobe. N.B. : The above information has been verbally conveyed by Debby Ferrari MD to SARA Stephenson, on 01/22/2019 11:42:29 (ET). 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 # left upper lobe lung abscess/infected cavity: She is on IV cefepime and vancomycin. She is afebrile, blood pressure and heart rate are maintained, pulse ox is 95% on 2.5 L which is her baseline at home. WBC remained almost the same. CT scan chest reviewed as above. Infectious disease and pulmonology consulted. Plan: Continue same treatment, awaiting pulmonary recommendations. #2 recent history of bilateral pseudomonas aeruginosa community-acquired pneumonia/sepsis/influenza A: She is on IV cefepime and vancomycin as above. She was discharged from the hospital on January 12, 2019 on Levaquin for 7 days and Tamiflu as well as prednisone taper. Plan as above. #3 COPD/chronic respiratory failure: On home oxygen at 2.5 L, she has been on 2.5 L at this time. She is on DuoNeb every 6 hours, albuterol as needed. #4 stage II chronic kidney disease: Baseline kidney function has been around 1.5-2 mg/dL. Admission creatinine is 1.56, today's creatinine is 1.41, stable at baseline.. Plan to monitor. #5 type 2 diabetes mellitus: Blood sugar stable, continue ADA diet, Lantus daily, and sliding scale. #6 hypertension: Blood pressure stable, continue losartan and Maxide. #7 hyperlipidemia: Continue TriCor. #8 DVT prophylaxis: Subcu heparin. This note was generated with [employer] software. It may contain incorrect words, spelling, and punctuation that were not noted in checking the note before signing. Code Visit Inpatient E&M: 77297 Subs Hosp L2
--- NOTE | 2019-01-23 08:32 | PN_ITS ---
Patient Problems: Active and Suspected Problems Lung abscess (Acute) Subjective: Chief complaint: Follow-up after admission for left upper lung abscess, recent history of pseudomonas aeruginosa community-acquired pneumonia. Patient seen and examined. No acute events overnight. This morning, she is feeling better, less short of breath. Still complaining of cough with clear sputum. Denies fever or chills. She remained on 2.5 l of oxygen, other vital signs are stable. - Physical Exam General: Alert, Oriented x3, Cooperative, No apparent distress HEENT: Atraumatic, PERRLA, EOMI, Normocephalic Oral: Moist Mucosa, No Gingival or Mucosal Lesions/ Ulcerations Neck: Supple, No JVD, Negative Carotid Bruits, Trachea Midline, Thyroid Normal Size and Texture Lungs: Clear to auscultation, No rhonchi, No wheeze, No rales, Diminished Cardiovascular: Regular rate, Regular Rhythm, Normal S1, Normal S2, No murmurs, PMI Normal Abdomen: Bowel Sounds Present, Soft, Non Tender, Non-Distended, No Hepato- splenomegaly, Obese Extremities: No clubbing, No cyanosis, No edema Skin: No rashes, No breakdown Lymphatic: No Cervical, Supraclavicular, or Inguinal Adenopathy Neurological: Cranial nerves II-XII grossly intact, Motor Exam 5/5 strength thr oughout Psych/Mental Status: Normal Affect, Appropriate, Alert and oriented to time, place, person, mood and affect Vital Signs Temp Pulse Resp BP Pulse Ox 98.6 F 101 H 20 H 116/96 H 96 01/23/19 08:02 01/23/19 08:02 01/23/19 08:02 01/23/19 08:02 01/23/19 08:02 Oxygen Flow Rate (L/min) 2 Oxygen Delivery Method Nasal Cannula Weight: 198 lb 12.8 oz Body Mass Index (BMI) 38.8 Intake and Output for Last 24 Hours 01/21/19 01/22/19 01/23/19 23:59 23:59 23:59 Intake Total 1969 1067.8 / 1067.8 Output Total 1100 / 1100 Balance 1969 -32.2 / -32.2 Laboratory Tests Past 24 Hrs 01/22/19 01/23/19 01/23/19 10:46 05:21 05:21 WBC 12.9 H RBC 3.44 L Hgb 10.2 L Hct 32.8 L MCV 95.3 MCH 29.7 MCHC 31.1 L RDW 14.9 H RDW Differential 50.2 H Plt Count 342 MPV 9.6 Neut % (Auto) Not Reportable Absolute Neuts (auto) 10.3 H Absolute Lymphs (auto) 1.03 Total Counted 100 Neutrophils % (Manual) 78 H Band Neutrophils % 2 Lymphocytes % (Manual) 8 L Monocytes % (Manual) 5 Eosinophils % (Manual) 1 Metamyelocytes % 2 H Myelocytes % 4 H Diff Path Review May foll Platelet Estimate ADEQUATE RBC Morphology NORM C+C PT 14.6 INR 1.1 APTT 30.0 Sodium 139 Potassium 4.4 Chloride 106 Carbon Dioxide 24.0 Anion Gap 9 BUN 30 H Creatinine 1.41 H Estim Creat Clear Calc 27.43 Est GFR (MDRD) Af Amer 48 L Est GFR (MDRD) Non-Af 39 L BUN/Creatinine Ratio 21.3 H Glucose 121 H Calcium 8.8 POC Glucose 01/23/19 01/22/19 01/22/19 06:49 22:01 16:55 POC Glucose 112 H 176 H 220 H 01/22/19 11:38 POC Glucose 157 H Clinical Impression(s) from Imaging Studies Chest CT 01/22/19 09:53 IMPRESSION: There is dense opacity in the lateral segment of the left upper lobe with an air-fluid level, either representing an abscess or infected cavity. There is a small left pleural effusion. There has been improvement in the scattered consolidations seen previously in both lower lobes, right upper lobe and right middle lobe. Electronically Signed: Debby Ferrari MD at 11:28 EST , Service support , ADDENDUM: 01/22/19 1148 IMPRESSION: There is dense opacity in the lateral segment of the left upper lobe with an air-fluid level, either representing an abscess or infected cavity. There is a small left pleural effusion. There has been improvement in the scattered consolidations seen previously in both lower lobes, right upper lobe and right middle lobe. N.B. : The above information has been verbally conveyed by Debby Ferrari MD to SARA Stephenson, on 01/22/2019 11:42:29 (ET). 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 # left upper lobe lung abscess/infected cavity: She is on IV cefepime and vancomycin. She is afebrile, blood pressure and heart rate are maintained, pulse ox is 95% on 2.5 L which is her baseline at home. WBC remained almost the same. CT scan chest reviewed as above. Infectious disease and pulmonology consulted. Plan: Continue same treatment, awaiting pulmonary recommendations. #2 recent history of bilateral pseudomonas aeruginosa community-acquired pneumonia/sepsis/influenza A: She is on IV cefepime and vancomycin as above. She was discharged from the hospital on January 12, 2019 on Levaquin for 7 days and Tamiflu as well as prednisone taper. Plan as above. #3 COPD/chronic respiratory failure: On home oxygen at 2.5 L, she has been on 2.5 L at this time. She is on DuoNeb every 6 hours, albuterol as needed. #4 stage II chronic kidney disease: Baseline kidney function has been around 1.5-2 mg/dL. Admission creatinine is 1.56, today's creatinine is 1.41, stable at baseline.. Plan to monitor. #5 type 2 diabetes mellitus: Blood sugar stable, continue ADA diet, Lantus daily, and sliding scale. #6 hypertension: Blood pressure stable, continue losartan and Maxide. #7 hyperlipidemia: Continue TriCor. #8 DVT prophylaxis: Subcu heparin. This note was generated with [employer] software. It may contain incorrect words, spelling, and punctuation that were not noted in checking the note before signing. Code Visit Inpatient E&M: 68937 Subs Hosp L2
[2019-01-23 11:31] LABS: Bedside Glucose 128 mg/dL (70-110)
[2019-01-23 16:11] LABS: Bedside Glucose 217 mg/dL (70-110)
[2019-01-23] MEDS: Insulin Lispro 100 UNIT/ML INSULN.PEN SQ (16:42)
[2019-01-23] MEDS: Vancomycin IV 1,000 MG/200 ML BAG 200 MG IV (19:27)
[2019-01-23] MEDS: Fenofibrate 145 MG Tablet PO (21:33)
[2019-01-23] MEDS: Benzonatate 100 MG Capsule PO (21:38)
[2019-01-24] VITALS (11 sets, daily range): BP systolic 102–115; BP diastolic 44–56; PULSE 85–94; RESP 16–20; TEMP 36.6–37.4; O2SAT 93–97
[2019-01-24] MEDS: Heparin Injection (Vial) 5,000 UNIT/ML VIAL 5000 UNIT SC ×3 (00:10→21:49)
[2019-01-24] MEDS: Insulin Lispro 100 UNIT/ML INSULN.PEN SQ ×3 (00:12→22:02)
[2019-01-24 00:16] LABS: Bedside Glucose 187 mg/dL (70-110)
[2019-01-24] MEDS: guaiFENesin 1,200 MG Tablet 1200 MG PO ×3 (00:20→21:49)
[2019-01-24] MEDS: Montelukast 10 MG Tablet PO ×2 (00:21→21:49)
[2019-01-24] MEDS: Polyethylene Glycol 3350 17 GM PACKET PO (00:48)
--- NOTE | 2019-01-24 05:55 | RAD_ITS ---
STUDY: X-RAY CHEST REASON FOR EXAM: Female, 68 years old. Shortness of breath. History of a lung abscess. TECHNIQUE: PA and lateral views of the chest. COMPARISON: Comparison is made with prior radiograph dated January 21, 2019. FINDINGS: Stable at the level in the left upper lobe suggestive of either an infected cavity or lung abscess. There is been improved aeration at the left lung base with the decreased left pleural effusion. Increased markings are seen at the right lung base suggestive of basilar atelectasis. Residual blunting of both costophrenic angles posteriorly. Normal size heart. There are calcified mediastinal and hilar lymph nodes. Normal visualized pulmonary arteries. Normal visualized aortic arch and descending thoracic aorta. There is a moderate dextroscoliosis of the thoracic spine. Normal visualized ribs, clavicles, and shoulders. There is no demonstrated abnormality of the visualized soft tissue structures of the upper abdomen. RAD/Chest PA and Lateral IMPRESSION: Stable at the level of the left upper lobe suggestive of a lung abscess. Improved aeration of the left lung base. Increased markings at the right lung base. Electronically Signed: Anam Larios MD at 12:24 EST , Service support ,
[2019-01-24] MEDS: Budesonide Respules 0.5 MG/2 ML AMPUL.NEB. INHALATION ×2 (06:00→19:07)
[2019-01-24] MEDS: Ipratropium/Albuterol Sulfate 3 ML AMPUL.NEB INHALATION ×3 (06:00→19:07)
[2019-01-24] MEDS: Alendronate Sodium 70 MG Tablet PO (06:35)
[2019-01-24 06:45] LABS: Bedside Glucose 136 mg/dL (70-110)
[2019-01-24] MEDS: Aspirin 81 MG TAB.CHEW PO (07:26)
[2019-01-24] MEDS: Fluticasone 0.05% 1 SPRAY NASAL.SRY NASAL (07:27)
[2019-01-24] MEDS: Losartan Potassium 50 MG Tablet PO (07:28)
[2019-01-24] MEDS: Famotidine 20 MG Tablet PO (07:28)
[2019-01-24] MEDS: Triamterene 75MG/Hctz 50MG Tablet 0.5 TABLET PO (07:28)
[2019-01-24] MEDS: Febuxostat 40 MG TABLET PO (07:29)
[2019-01-24] MEDS: Pantoprazole Sodium 40 MG Tablet PO (07:29)
[2019-01-24] MEDS: Fenofibrate 145 MG Tablet PO (07:32)
[2019-01-24] MEDS: Loratadine 10 MG Tablet PO (07:32)
--- NOTE | 2019-01-24 09:16 | PN_ITS ---
Patient Problems: Active and Suspected Problems Lung abscess (Acute) Vitals/I&O's: Vital Signs Temp Pulse Resp BP Pulse Ox 98.2 F 92 20 H 102/56 L 93 01/24/19 04:00 01/24/19 06:00 01/24/19 06:00 01/24/19 04:00 01/24/19 06:00 Oxygen Flow Rate (L/min) 2 Oxygen Delivery Method Nasal Cannula Weight: 90.174 kg Body Mass Index (BMI) 38.8 Intake and Output for Last 24 Hours 01/22/19 01/23/19 01/24/19 23:59 23:59 23:59 Intake Total 1969 1767.8 / 1767.8 1568 / 1568 Output Total 1999 1750 / 1750 Balance 1969 -232.2 / -232.2 -182 / -182 Laboratory Results 01/23/19 08:30: Vancomycin Trough Cancelled 01/23/19 11:28: POC Glucose 128 H 01/23/19 15:59: POC Glucose 217 H 01/23/19 21:17: POC Glucose 187 H 01/24/19 06:33: POC Glucose 136 H Current Medications Acetaminophen (Tylenol) 1,000 mg PO Q8H PRN PRN PRN Reason: PAIN Last Admin: 01/22/19 18:27 Dose: 1,000 mg Albuterol Sulfate (Ventolin Aerosols) 2.5 mg INHALATION Q6H PRN PRN PRN Reason: SHORTNESS OF BREATH Last Admin: 01/22/19 16:08 Dose: 2.5 mg Albuterol/Ipratropium (Duoneb) 3 ml INHALATION Q6HWA.RT [facility] Last Admin: 01/24/19 06:00 Dose: 3 ml Alendronate Sodium (Fosamax) 70 mg PO QWEEK [facility] Last Admin: 01/24/19 06:35 Dose: 70 mg Aspirin (Aspirin, Baby) 81 mg PO DAILYCM [facility] Last Admin: 01/24/19 07:26 Dose: 81 mg Benzonatate (Tessalon Perle) 100 mg PO Q4H PRN PRN PRN Reason: COUGH/CONGESTION Last Admin: 01/23/19 21:38 Dose: 100 mg Budesonide (Pulmicort Aerosol) 0.5 mg INHALATION BID.RT [facility] Last Admin: 01/24/19 06:00 Dose: 0.5 mg Cholecalciferol (Vitamin D) 1,000 unit PO DAILY [facility] Last Admin: 01/24/19 07:29 Dose: 1,000 unit Dextrose (D50w Syringe) 0 gm IV X1 PRN; Protocol PRN Reason: Hypoglycemia Famotidine (Pepcid) 20 mg PO DAILY [facility] Last Admin: 01/24/19 07:28 Dose: 20 mg [facility] Admin: 01/24/19 07:32 Dose: 145 mg Fluticasone Propionate (Flonase Nasal [place]) 1 spray NASAL DAILY PRN PRN PRN Reason: CONGESTION Last Admin: 01/24/19 07:27 Dose: 1 spray Glucagon () 1 mg IM .X1 PRN PRN Reason: Hypoglycemia Guaifenesin (Mucinex) 1,200 mg PO BID [facility] Last Admin: 01/24/19 07:28 Dose: 1,200 mg Heparin Sodium (Porcine) (Heparin Na) 5,000 unit SC Q12 [facility] Last Admin: 01/24/19 00:10 Dose: 5,000 unit Cefepime HCl 2 gm/ Sodium (Chloride) 100 mls @ 200 mls/hr IV QHS [facility] Last Admin: 01/24/19 00:19 Dose: 200 mls/hr Vancomycin IV Pharmacy to Dose (1 ea/ Sodium Chloride) 500 mls @ 250 mls/hr IV PRN PRN; Protocol PRN Reason: Rx to Dose Vancomycin HCl (Vancomycin) 1,000 mg in 200 mls @ 200 mls/hr IV Q24H [facility] Last Admin: 01/23/19 19:27 Dose: 200 mls/hr Insulin Glargine (Lantus (Bkc)) 30 units SC QHS [facility] Last Admin: 01/24/19 00:14 Dose: 30 u Insulin Human Lispro (Humalog Kwikpen (Bkc)) 0 unit SQ ACHS [facility]; Protocol Last Admin: 01/24/19 06:36 Dose: Not Given Loratadine (Claritin) 10 mg PO DAILY [facility] Last Admin: 01/24/19 07:32 Dose: 10 mg Losartan Potassium (Cozaar) 50 mg PO DAILY [facility] Last Admin: 01/24/19 07:28 Dose: 50 mg Magnesium Hydroxide (Milk Of Magnesia) 30 ml PO DAILY PRN PRN PRN Reason: Constipation Montelukast Sodium (Singulair) 10 mg PO QHS [facility] Last Admin: 01/24/19 00:21 Dose: 10 mg Pantoprazole Sodium (Protonix) 40 mg PO DAILY [facility] Last Admin: 01/24/19 07:29 Dose: 40 mg Polyethylene Glycol (Miralax) 17 gm PO DAILY PRN PRN Reason: Constipation Last Admin: 01/24/19 00:48 Dose: 17 gm Sodium Chloride () 5 - 15 ml IV UD PRN PRN Reason: SALINE FLUSH Last Admin: 01/22/19 18:51 Dose: 10 ml Triamterene/HCTZ (Maxzide) 0.5 tablet PO DAILY [facility] Last Admin: 01/24/19 07:28 Dose: 0.5 tablet Medical Necessity - Tobacco Use Smoking Status: Former smoker Tobacco Use: Cigarettes Assessment/Plan All Active Problems Lung abscess (Acute)
--- NOTE | 2019-01-24 11:06 | PCM.HP.ID ---
Problem List (1) Lung abscess Status: Acute Reason for Consult: lung abscess Consulted by: Dr. Mckeon History of Present Illness: The patient is a 68 year old F with h.o COPD, CKD, DM who presented 01/21 with 3-4 weeks of cough, SOB, not feeling well. Admitted here end of Nov with these sx. Flu (+), sputum with pseudomonas. Discharged on levaquin which caused upset stomach. Similar reaction with augmentin and cipro in the past. Sx did not improve, had outpt xray which showed L upper lobe abscess. No travel outside the country, reports neg PPD in the past, no known TB contacts. No hemoptysis. Admitted here, started on cefepime and vanc, feeling better. Coughing up some white/clear sputum. Full ROS performed and neg except as noted above. - Medical History Past Medical History (Chronic Problems): Chronic Problems On home O2 (Chronic) Sarcoidosis (Chronic) Type 2 diabetes mellitus (Chronic) Chronic obstructive lung disease (Chronic) mild Hyperlipidemia (Chronic) CKD (chronic kidney disease), stage II (Chronic) Benign hypertension (Chronic) Allergies/Adverse Reactions: Allergies clindamycin Allergy (Verified 12/30/18 13:42) Rash ciprofloxacin Adverse Reaction (Mild, Verified 12/30/18 13:42) Upset Stomach amoxicillin trihydrate [From Augmentin] Adverse Reaction (Verified 12/30/18 13:42) Nausea morphine Adverse Reaction (Verified 12/30/18 13:43) Nausea potassium clavulanate [From Augmentin] Adverse Reaction (Verified 12/30/18 13:42) Nausea Home Medications: Ambulatory Orders Medication Instructions Recorded Albuterol Aerosols [Ventolin 2.5 mg INHALATION Q6H PRN PRN 07/07/14 Aerosols] Fenofibric Acid (Choline) 135 mg PO DAILY 07/07/14 [Trilipix] Lactobacillus Combination No.4 1 each PO DAILY 07/07/14 [Probiotic] Loratadine [Claritin] 10 mg PO DAILY 07/07/14 Losartan Potassium [Cozaar] 50 mg PO DAILY 07/07/14 Montelukast [Singulair] 10 mg PO QHS 07/07/14 Alendronate Sodium [Fosamax] 70 mg PO QWEEK 06/21/17 Cholecalciferol (Vitamin D3) 1,000 unit PO DAILY 06/21/17 [Vitamin D3] Fluticasone 0.05% [Flonase Nasal 1 spray NASAL DAILY PRN PRN 06/21/17 [place]] Fluticasone/Salmeterol [Advair 1 puff INHALATION BID 06/21/17 500/50 Mcg Diskus] Insulin Detemir [Levemir FlexPen] 30 units SC QHS 06/21/17 [place]-3S/Dha/Epa/Fish Oil [Fish 1 each PO DAILY [facility] 06/21/17 Oil 1,200 mg Softgel] Pantoprazole Sodium [Protonix] 40 mg PO DAILY 06/21/17 Tiotropium [place] [Spiriva 2 puff IH DAILY 06/21/17 Respimat] Sour Scott Extract [Tart [place] 1,000 mg PO DAILY 01/07/18 Extract] Aspirin [Aspirin, Baby] 81 mg PO DAILY 12/30/18 Febuxostat [Uloric] 40 mg PO DAILY 12/30/18 Sitagliptin Phosphate [Januvia] 50 mg PO DAILY 12/30/18 Triamterene 37.5MG/Hctz 25MG 1 tablet PO DAILY 12/30/18 [Maxzide 37.5 mg-25 mg Tablet] Polyethylene Glycol 3350 [Miralax] 17 gm PO DAILY PRN 01/21/19 Ranitidine [Zantac] 150 mg PO DAILY 01/21/19 Doxycycline 100 mg PO BID 30 Days #60 capsule 01/24/19 Piperacil/Tazobactam [Zosyn] 3.375 gm IV Q8 30 Days #90 vial 01/24/19 - Social History SMOKING STATUS:: Former smoker Vital Signs Temp Pulse Resp BP Pulse Ox 98.0 F 85 20 H 102/44 L 97 01/24/19 09:52 01/24/19 09:52 01/24/19 09:52 01/24/19 09:52 01/24/19 09:52 Oxygen Flow Rate (L/min) 2 Oxygen Delivery Method Nasal Cannula Weight: 90.174 kg Body Mass Index (BMI) 38.8 Laboratory Tests Past 24 Hrs 01/23/19 08:30 Vancomycin Trough Cancelled - Other Studies Radiology: [] reviewed Other Studies: [] Route of nutrition/ use of supplements: [] Nutritional Intake: [] IV Site: [] Winter Catheter: [] - Physical Exam General: Alert, Oriented x3, Cooperative, No apparent distress HEENT: Atraumatic, PERRLA, EOMI Neck: Supple, No Nodes Lungs: Diminished, Rhonchi - scattered Cardiovascular: Regular rate, Regular Rhythm, No murmurs Abdomen: Soft, Non Tender, Non-Distended Extremities: No edema Skin: No rashes IV Site: Peripheral, without redness Musculoskeletal: No Tenderness to Palpation of Joints or Extremities Neurological: Cranial nerves II-XII grossly intact - Assessment/Plan Antibiotics: [] Assessment/Plan: [] Active and Suspected Problems Lung abscess (Acute) Recent flu and Pseudomonas pneumonia. Low risk for TB exposure, neg PPD in the past. Reports she does not tolerate FQs due to upset stomach. Will change abx to iv zosyn for PsA and anaerobic coverage and po doxy for empiric MRSA coverage. Check sputum cx. Order picc. Plan on 4 week course of abx, stop date 02/22/19, weekly bmp, cbc while on iv abx. Duration will change depending on followup cxr and resolution of abscess. Will follow, thank you, wrote rx for labs and abx, d/w case consultant.
--- NOTE | 2019-01-24 11:10 | CON.PCM_ITS ---
Problem List (1) Lung abscess Status: Acute Reason for Consult: lung abscess Consulted by: Dr. Mckeon History of Present Illness: The patient is a 68 year old F with h.o COPD, CKD, DM who presented 01/21 with 3- 4 weeks of cough, SOB, not feeling well. Admitted here end of Nov with these sx. Flu (+), sputum with pseudomonas. Discharged on levaquin which caused upset stomach. Similar reaction with augmentin and cipro in the past. Sx did n ot improve, had outpt xray which showed L upper lobe abscess. No travel outside the country, reports neg PPD in the past, no known TB contacts. No hemoptysis. Admitted here, started on cefepime and vanc, feeling better. Coughing up some white/clear sputum. Full ROS performed and neg except as noted above. - Medical History Past Medical History (Chronic Problems): Chronic Problems On home O2 (Chronic) Sarcoidosis (Chronic) Type 2 diabetes mellitus (Chronic) Chronic obstructive lung disease (Chronic) mild Hyperlipidemia (Chronic) CKD (chronic kidney disease), stage II (Chronic) Benign hypertension (Chronic) Allergies/Adverse Reactions: Allergies clindamycin Allergy (Verified 12/30/18 13:42) Rash ciprofloxacin Adverse Reaction (Mild, Verified 12/30/18 13:42) Upset Stomach amoxicillin trihydrate [From Augmentin] Adverse Reaction (Verified 12/30/18 13:42) Nausea morphine Adverse Reaction (Verified 12/30/18 13:43) Nausea potassium clavulanate [From Augmentin] Adverse Reaction (Verified 12/30/18 13:42) Nausea Home Medications: Ambulatory Orders Medication Instructions Recorded Albuterol Aerosols [Ventolin 2.5 mg INHALATION Q6H PRN PRN 07/07/14 Aerosols] Fenofibric Acid (Choline) 135 mg PO DAILY 07/07/14 [Trilipix] Lactobacillus Combination No.4 1 each PO DAILY 07/07/14 [Probiotic] Loratadine [Claritin] 10 mg PO DAILY 07/07/14 Losartan Potassium [Cozaar] 50 mg PO DAILY 07/07/14 Montelukast [Singulair] 10 mg PO QHS 07/07/14 Alendronate Sodium [Fosamax] 70 mg PO QWEEK 06/21/17 Cholecalciferol (Vitamin D3) 1,000 unit PO DAILY 06/21/17 [Vitamin D3] Fluticasone 0.05% [Flonase Nasal 1 spray NASAL DAILY PRN PRN 06/21/17 [place]] Fluticasone/Salmeterol [Advair 1 puff INHALATION BID 06/21/17 500/50 Mcg Diskus] Insulin Detemir [Levemir FlexPen] 30 units SC QHS 06/21/17 [place]-3S/Dha/Epa/Fish Oil [Fish 1 each PO DAILY [facility] 06/21/17 Oil 1,200 mg Softgel] Pantoprazole Sodium [Protonix] 40 mg PO DAILY 06/21/17 Tiotropium [place] [Spiriva 2 puff IH DAILY 06/21/17 Respimat] Sour Scott Extract [Tart Scott 1,000 mg PO DAILY 01/07/18 Extract] Aspirin [Aspirin, Baby] 81 mg PO DAILY 12/30/18 Febuxostat [Uloric] 40 mg PO DAILY 12/30/18 Sitagliptin Phosphate [Januvia] 50 mg PO DAILY 12/30/18 Triamterene 37.5MG/Hctz 25MG 1 tablet PO DAILY 12/30/18 [Maxzide 37.5 mg-25 mg Tablet] Polyethylene Glycol 3350 [Miralax] 17 gm PO DAILY PRN 01/21/19 Ranitidine [Zantac] 150 mg PO DAILY 01/21/19 Doxycycline 100 mg PO BID 30 Days #60 capsule 01/24/19 Piperacil/Tazobactam [Zosyn] 3.375 gm IV Q8 30 Days #90 vial 01/24/19 - Social History SMOKING STATUS:: Former smoker Vital Signs Temp Pulse Resp BP Pulse Ox 98.0 F 85 20 H 102/44 L 97 01/24/19 09:52 01/24/19 09:52 01/24/19 09:52 01/24/19 09:52 01/24/19 09:52 Oxygen Flow Rate (L/min) 2 Oxygen Delivery Method Nasal Cannula Weight: 90.174 kg Body Mass Index (BMI) 38.8 Laboratory Tests Past 24 Hrs 01/23/19 08:30 Vancomycin Trough Cancelled - Other Studies Radiology: [] reviewed Other Studies: [] Route of nutrition/ use of supplements: [] Nutritional Intake: [] IV Site: [] Winter Catheter: [] - Physical Exam General: Alert, Oriented x3, Cooperative, No apparent distress HEENT: Atraumatic, PERRLA, EOMI Neck: Supple, No Nodes Lungs: Diminished, Rhonchi - scattered Cardiovascular: Regular rate, Regular Rhythm, No murmurs Abdomen: Soft, Non Tender, Non-Distended Extremities: No edema Skin: No rashes IV Site: Peripheral, without redness Musculoskeletal: No Tenderness to Palpation of Joints or Extremities Neurological: Cranial nerves II-XII grossly intact - Assessment/Plan Antibiotics: [] Assessment/Plan: [] Active and Suspected Problems Lung abscess (Acute) Recent flu and Pseudomonas pneumonia. Low risk for TB exposure, neg PPD in the past. Reports she does not tolerate FQs due to upset stomach. Will change abx to iv zosyn for PsA and anaerobic coverage and po doxy for empiric MRSA coverage. Check sputum cx. Order picc. Plan on 4 week course of abx, stop date 02/22/19, weekly bmp, cbc while on iv abx. Duration will change depending on followup cxr and resolution of abscess. Will follow, thank you, wrote rx for labs and abx, d/w shoe parts caser.
--- NOTE | 2019-01-24 11:19 | PN_ITS ---
Patient Problems: Active and Suspected Problems Lung abscess (Acute) Subjective: Patient is a 68-year-old lady with recent hospitalization for influenza A infection complicated by Pseudomonas readmitted with generalized weakness. Imaging studies obtained on admission demonstrated left upper lobe lung abscess admitted to regular nursing floor for further management 01/24/2019: Patient seen plan is for patient undergo PICC line placement. Antibiotic therapy adjusted by infectious disease. Objective: GENERAL: cooperative HEENT: Atraumatic; EYES; Anicteric, Normal Conjunctiva NECK; supple, normal thyroid, RESPIRATORY: Diminished to auscultation bilaterally, CARDIOVASCULAR: Regular S1 S2, GI: soft, non-tender, normoactive bowel sounds, : No Renal angle tenderness; EXTREMITIES: No edema, no clubbing, no cyanosis. NEURO: Awake; no lateralizing signs. SKIN: No Rash PSYCH; Normal affect Vitals/I&O's: Vital Signs Temp Pulse Resp BP Pulse Ox 98.0 F 85 20 H 102/44 L 97 01/24/19 09:52 01/24/19 09:52 01/24/19 09:52 01/24/19 09:52 01/24/19 09:52 Oxygen Flow Rate (L/min) 2 Oxygen Delivery Method Nasal Cannula Weight: 90.174 kg Body Mass Index (BMI) 38.8 Intake and Output for Last 24 Hours 01/22/19 01/23/19 01/24/19 23:59 23:59 23:59 Intake Total 1969 1767.8 / 1767.8 1568 / 1568 Output Total 1999 1750 / 1750 Balance 1969 -232.2 / -232.2 -182 / -182 Laboratory Results 01/23/19 08:30: Vancomycin Trough Cancelled 01/23/19 11:28: POC Glucose 128 H 01/23/19 15:59: POC Glucose 217 H 01/23/19 21:17: POC Glucose 187 H 01/24/19 06:33: POC Glucose 136 H Current Medications Acetaminophen (Tylenol) 1,000 mg PO Q8H PRN PRN PRN Reason: PAIN Last Admin: 01/22/19 18:27 Dose: 1,000 mg Albuterol Sulfate (Ventolin Aerosols) 2.5 mg INHALATION Q6H PRN PRN PRN Reason: SHORTNESS OF BREATH Last Admin: 01/22/19 16:08 Dose: 2.5 mg Albuterol/Ipratropium (Duoneb) 3 ml INHALATION Q6HWA.RT [facility] Last Admin: 01/24/19 06:00 Dose: 3 ml Alendronate Sodium (Fosamax) 70 mg PO QWEEK [facility] Last Admin: 01/24/19 06:35 Dose: 70 mg Aspirin (Aspirin, Baby) 81 mg PO DAILYCM [facility] Last Admin: 01/24/19 07:26 Dose: 81 mg Benzonatate (Tessalon Perle) 100 mg PO Q4H PRN PRN PRN Reason: COUGH/CONGESTION Last Admin: 01/23/19 21:38 Dose: 100 mg Budesonide (Pulmicort Aerosol) 0.5 mg INHALATION BID.RT [facility] Last Admin: 01/24/19 06:00 Dose: 0.5 mg Cholecalciferol (Vitamin D) 1,000 unit PO DAILY [facility] Last Admin: 01/24/19 07:29 Dose: 1,000 unit Dextrose (D50w Syringe) 0 gm IV X1 PRN; Protocol PRN Reason: Hypoglycemia Doxycycline Monohydrate (Doxycycline) 100 mg PO BID [facility] Famotidine (Pepcid) 20 mg PO DAILY [facility] Last Admin: 01/24/19 07:28 Dose: 20 mg Fenofibrate (Tricor) [facility] Last Admin: 01/24/19 07:32 Dose: 145 mg Fluticasone Propionate (Flonase Nasal [place]) 1 spray NASAL DAILY PRN PRN PRN Reason: CONGESTION Last Admin: 01/24/19 07:27 Dose: 1 spray Glucagon () 1 mg IM .X1 PRN PRN Reason: Hypoglycemia Guaifenesin (Mucinex) 1,200 mg PO BID [facility] Last Admin: 01/24/19 07:28 Dose: 1,200 mg Heparin Sodium (Porcine) (Heparin Na) 5,000 unit SC Q12 [facility] Last Admin: 01/24/19 09:55 Dose: 5,000 unit Piperacillin Sod/Tazobactam (Sod 3.375 gm/ Sodium Chloride) 50 mls @ 12.5 mls/hr IV Q8 [facility] Insulin Glargine (Lantus (Bkc)) 30 units SC QHS [facility] Last Admin: 01/24/19 00:14 Dose: 30 u Insulin Human Lispro (Humalog Kwikpen ([facility])) 0 unit SQ ACHS [facility]; Protocol Last Admin: 01/24/19 06:36 Dose: Not Given Loratadine (Claritin) 10 mg PO DAILY [facility] Last Admin: 01/24/19 07:32 Dose: 10 mg Losartan Potassium (Cozaar) 50 mg PO DAILY [facility] Last Admin: 01/24/19 07:28 Dose: 50 mg Magnesium Hydroxide (Milk Of Magnesia) 30 ml PO DAILY PRN PRN PRN Reason: Constipation Montelukast Sodium (Singulair) 10 mg PO QHS [facility] Last Admin: 01/24/19 00:21 Dose: 10 mg Pantoprazole Sodium (Protonix) 40 mg PO DAILY [facility] Last Admin: 01/24/19 07:29 Dose: 40 mg Polyethylene Glycol (Miralax) 17 gm PO DAILY PRN PRN Reason: Constipation Last Admin: 01/24/19 00:48 Dose: 17 gm Sodium Chloride () 5 - 15 ml IV UD PRN PRN Reason: SALINE FLUSH Last Admin: 01/22/19 18:51 Dose: 10 ml Triamterene/HCTZ (Maxzide) 0.5 tablet PO DAILY [facility] Last Admin: 01/24/19 07:28 Dose: 0.5 tablet Medical Necessity - Tobacco Use Smoking Status: Former smoker Tobacco Use: Cigarettes Assessment/Plan All Active Problems Lung abscess (Acute) Patient is a 68-year-old lady with recent hospitalization for influenza A infection complicated by Pseudomonas readmitted with generalized weakness. Imaging studies obtained on admission demonstrated left upper lobe lung abscess admitted to regular nursing floor for further management 1. Left upper lobe lung abscess patient was initially managed on cefepime and vancomycin switched to Zosyn and p.o. doxycycline following consultation by Dr. Adam with infectious disease. Case was also discussed with patient research and insights executive Dr. Delgado plan is for patient to have a PICC line placed with IV antibiotics as outpatient 2. Chronic hypoxic respiratory failure secondary to COPD patient is on baseline 2.5 L oxygen at home 3. Chronic kidney disease kidney function at baseline 4. Diabetes mellitus type 2 5. Essential hypertension 6. Dyslipidemia 7. DVT prophylaxis SC heparin Active Medications Acetaminophen (Tylenol) 1,000 mg PO Q8H PRN PRN PRN Reason: PAIN Last Admin: 01/22/19 18:27 Dose: 1,000 mg Albuterol Sulfate (Ventolin Aerosols) 2.5 mg INHALATION Q6H PRN PRN PRN Reason: SHORTNESS OF BREATH Last Admin: 01/22/19 16:08 Dose: 2.5 mg Albuterol/Ipratropium (Duoneb) 3 ml INHALATION Q6HWA.RT [facility] Last Admin: 01/24/19 06:00 Dose: 3 ml Alendronate Sodium (Fosamax) 70 mg PO QWEEK [facility] Last Admin: 01/24/19 06:35 Dose: 70 mg Aspirin (Aspirin, Baby) [facility] Last Admin: 01/24/19 07:26 Dose: 81 mg Benzonatate (Tessalon Perle) 100 mg PO Q4H PRN PRN PRN Reason: COUGH/CONGESTION Last Admin: 01/23/19 21:38 Dose: 100 mg Budesonide (Pulmicort Aerosol) 0.5 mg INHALATION BID.RT [facility] Last Admin: 01/24/19 06:00 Dose: 0.5 mg Cholecalciferol (Vitamin D) 1,000 unit PO DAILY [facility] Last Admin: 01/24/19 07:29 Dose: 1,000 unit Dextrose (D50w Syringe) 0 gm IV X1 PRN; Protocol PRN Reason: Hypoglycemia Doxycycline Monohydrate (Doxycycline) 100 mg PO BID [facility] Famotidine (Pepcid) 20 mg PO DAILY [facility] Last Admin: 01/24/19 07:28 Dose: 20 mg Fenofibrate (Tricor) 145 [facility] Last Admin: 01/24/19 07:32 Dose: 145 mg Fluticasone Propionate (Flonase Nasal [place]) 1 spray NASAL DAILY PRN PRN PRN Reason: CONGESTION Last Admin: 01/24/19 07:27 Dose: 1 spray Glucagon () 1 mg IM .X1 PRN PRN Reason: Hypoglycemia Guaifenesin (Mucinex) 1,200 mg PO BID [facility] Last Admin: 01/24/19 07:28 Dose: 1,200 mg Heparin Sodium (Porcine) (Heparin Na) 5,000 unit SC Q12 [facility] Last Admin: 01/24/19 09:55 Dose: 5,000 unit Piperacillin Sod/Tazobactam (Sod 3.375 gm/ Sodium Chloride) 50 mls @ 12.5 mls/hr IV Q8 [facility] Insulin Glargine (Lantus (Bkc)) 30 units SC QHS [facility] Last Admin: 01/24/19 00:14 Dose: 30 u Insulin Human Lispro (Humalog Kwikpen (Bk)) 0 unit SQ ACHS [facility]; Protocol Last Admin: 01/24/19 06:36 Dose: Not Given Loratadine (Claritin) 10 mg PO DAILY [facility] Last Admin: 01/24/19 07:32 Dose: 10 mg Losartan Potassium (Cozaar) 50 mg PO DAILY [facility] Last Admin: 01/24/19 07:28 Dose: 50 mg Magnesium Hydroxide (Milk Of Magnesia) 30 ml PO DAILY PRN PRN PRN Reason: Constipation Montelukast Sodium (Singulair) 10 mg PO QHS [facility] Last Admin: 01/24/19 00:21 Dose: 10 mg Pantoprazole Sodium (Protonix) 40 mg PO DAILY [facility] Last Admin: 01/24/19 07:29 Dose: 40 mg Polyethylene Glycol (Miralax) 17 gm PO DAILY PRN PRN Reason: Constipation Last Admin: 01/24/19 00:48 Dose: 17 gm Sodium Chloride () 5 - 15 ml IV UD PRN PRN Reason: SALINE FLUSH Last Admin: 01/22/19 18:51 Dose: 10 ml Triamterene/HCTZ (Maxzide) 0.5 tablet PO DAILY [facility] Last Admin: 01/24/19 07:28 Dose: 0.5 tablet Clinical Impression(s) from Imaging Studies Chest CT 01/22/19 09:53 IMPRESSION: There is dense opacity in the lateral segment of the left upper lobe with an air-fluid level, either representing an abscess or infected cavity. There is a small left pleural effusion. There has been improvement in the scattered consolidations seen previously in both lower lobes, right upper lobe and right middle lobe. Electronically Signed: Debby Ferrari MD at 11:28 EST , Service support , ADDENDUM: 01/22/19 1149 IMPRESSION: There is dense opacity in the lateral segment of the left upper lobe with an air-fluid level, either representing an abscess or infected cavity. There is a small left pleural effusion. There has been improvement in the scattered consolidations seen previously in both lower lobes, right upper lobe and right middle lobe. N.B. : The above information has been verbally conveyed by Debby Ferrari MD to SARA Stephenson, on 01/22/2019 11:42:29 (ET). Electronically Signed: Debby Ferrari MD at 11:28 EST , Service support , Code Visit Inpatient E&M: 12201 Subs Hosp L2
[2019-01-24] MEDS: Acetaminophen 500 MG Tablet 1000 MG PO (11:33)
[2019-01-24 11:40] LABS: Bedside Glucose 144 mg/dL (70-110)
[2019-01-24 12:01] LABS: Pathologist Review Reviewed
[2019-01-24 12:08] LABS: Pathologist Review Reviewed
[2019-01-24 12:15] LABS: Pathologist Review Reviewed
--- NOTE | 2019-01-24 12:45 | CASEMGMT ---
SARA BARON received update from Infectious Disease that patient will require IV ATBs at discharge. SARA BARON spoke with patient regarding IV ATB and if patient's was willing to learn how to assist with IV ATB at home. Patient stated would be able to help. SARA BARON asked if referral could be sent to [facility] to setup ATB at home. Patient agreed and referral sent to [facility]. Patient is currently established with [facility]. SARA BARON updated [facility] for need for IV ATB at discharge. SARA BARON will continue to follow this patient and plan for a safe discharge.
--- NOTE | 2019-01-24 15:36 | CASEMGMT ---
Discharge Planning for Home IV Abx Coordination, Tentative DC Plan for Tomorrow on IV Zosyn Q8hr. Current Schedule 0600, 1400, 2200. Called [employer] and confirmed received fax. 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 States patient covered at 75% after the $100 Deductible. Out of Pocket $3,000 then covered at 100%. States best for CM to touch base in the morning with other financial information- primary CM Alannah Rosas informed. PICC Line information faxed to [facility]. Called Gabbi at [facility] and updated on above and states that full tomorrow and will have to go out and see patient tomorrow night for the evening dose. Steve Ribera RNCM
[2019-01-24 16:15] LABS: Bedside Glucose 174 mg/dL (70-110)
[2019-01-24] MEDS: Benzonatate 100 MG Capsule PO (18:12)
[2019-01-24] MEDS: Doxycycline 100 MG CAPSULE PO (21:49)
[2019-01-24 22:25] LABS: Bedside Glucose 188 mg/dL (70-110)
[2019-01-25 02:00] VITALS: BP 125/57; PULSE 91; RESP 18; TEMP 37.7; O2SAT 97
[2019-01-25 02:02] VITALS: O2SAT 97
[2019-01-25] MEDS: Benzonatate 100 MG Capsule PO (05:57)
[2019-01-25] MEDS: Insulin Lispro 100 UNIT/ML INSULN.PEN SQ (06:46)
[2019-01-25 06:50] LABS: Bedside Glucose 186 mg/dL (70-110)
[2019-01-25] MEDS: Ipratropium/Albuterol Sulfate 3 ML AMPUL.NEB INHALATION ×2 (06:59→13:12)
[2019-01-25 07:00] VITALS: PULSE 84; RESP 16; O2SAT 97
[2019-01-25] MEDS: Budesonide Respules 0.5 MG/2 ML AMPUL.NEB. INHALATION (07:00)
[2019-01-25 08:00] VITALS: BP 122/54; PULSE 90; RESP 16; TEMP 36.8; O2SAT 98
--- NOTE | 2019-01-25 08:04 | PCM.PROGNOTE ---
Patient Problems: Active and Suspected Problems Lung abscess (Acute) - Physical Exam General: Alert, Oriented x3, Cooperative HEENT: Atraumatic, PERRLA, Normocephalic Neck: Supple, No JVD, Negative Carotid Bruits Lungs: Normal air movement, - - Scattered rhonchi, no rales, egophony left upper chest, no dullness to percussion Cardiovascular: Regular rate, No murmurs Abdomen: Bowel Sounds Present, Soft, Non Tender Extremities: No edema, Capillary Refill Less than 3 Seconds Skin: No rashes, No breakdown Musculoskeletal: No Tenderness to Palpation of Joints or Extremities Neurological: Cranial nerves II-XII grossly intact Psych/Mental Status: Normal Affect, Appropriate Vital Signs Temp Pulse Resp BP Pulse Ox 99.8 F H 84 16 125/57 H 97 01/25/19 02:00 01/25/19 07:00 01/25/19 07:00 01/25/19 02:00 01/25/19 07:00 Oxygen Flow Rate (L/min) 2 Oxygen Delivery Method Nasal Cannula Weight: 90.2 kg Body Mass Index (BMI) 38.8 Intake and Output for Last 24 Hours 01/23/19 01/24/19 01/25/19 23:59 23:59 23:59 Intake Total 1767.8 / 1767.8 2914 / 2914 660 / 660 Output Total 1999 3050 / 3050 1550 / 1550 Balance -232.2 / -232.2 -136 / -136 -890 / -890 Laboratory Tests Past 24 Hrs 01/21/19 01/22/19 01/23/19 18:32 06:18 05:21 Diff [address] Review Reviewed Reviewed Reviewed POC Glucose 01/25/19 01/24/19 01/24/19 06:45 21:56 16:07 POC Glucose 186 H 188 H 174 H 01/24/19 11:26 POC Glucose 144 H Medical Necessity - Tobacco Use Smoking Status: Former smoker Tobacco Use: Cigarettes Assessment/Plan All Active Problems Lung abscess (Acute) Lung abscess suspect gram-negative rods, now producing dark green sputum from just this morning. The patient's been afebrile, she feels better, her chest pain is improved, The above antibiotics are adequate to control symptoms so I suspect this may be Pseudomonas Other gram negatives are in the differential, await microbiology PICC line is in place The patient is ambulatory There is no evidence of wheezing and I would avoid all oral steroids I plan to follow her up in the office in 1-2 weeks with a chest x-ray Discussed with Dr. Dumont
--- NOTE | 2019-01-25 08:14 | PCM.DC ---
- Discharge Diagnoses Current Active Problems: Current Active and Chronic Problems Lung abscess (Acute) You will use the following diet at home:: Calorie/Carbohydrate Controlled (specify 1200, 1400, etc) - 1800 Your food should be the consistency of: Regular Discharge Activity: Return to Normal Activity Allergies/Adverse Reactions: Allergies clindamycin Allergy (Verified 12/30/18 13:42) Rash ciprofloxacin Adverse Reaction (Mild, Verified 12/30/18 13:42) Upset Stomach amoxicillin trihydrate [From Augmentin] Adverse Reaction (Verified 12/30/18 13:42) Nausea morphine Adverse Reaction (Verified 12/30/18 13:43) Nausea potassium clavulanate [From Augmentin] Adverse Reaction (Verified 12/30/18 13:42) Nausea Medications to take at Discharge Albuterol Aerosols [Ventolin Aerosols] 2.5 mg INHALATION Q6H PRN PRN 07/07/14 Fenofibric Acid (Choline) [Trilipix] 135 mg PO DAILY 07/07/14 Lactobacillus Combination No.4 [Probiotic] 1 each PO DAILY 07/07/14 Loratadine [Claritin] 10 mg PO DAILY 07/07/14 Losartan Potassium [Cozaar] 50 mg PO DAILY 07/07/14 Montelukast [Singulair] 10 mg PO QHS 07/07/14 Alendronate Sodium [Fosamax] 70 mg PO QWEEK 06/21/17 Cholecalciferol (Vitamin D3) [Vitamin D3] 1,000 unit PO DAILY 06/21/17 Fluticasone 0.05% [Flonase Nasal [place]] 1 spray NASAL DAILY PRN PRN 06/21/17 Fluticasone/Salmeterol [Advair 500/50 Mcg Diskus] 1 puff INHALATION BID 06/21/17 Insulin Detemir [Levemir FlexPen] 30 units SC QHS 06/21/17 [place]-3S/Dha/Epa/Fish Oil [Fish Oil 1,200 mg Softgel] 1 each PO DAILY [facility] 06/21/17 Pantoprazole Sodium [Protonix] 40 mg PO DAILY 06/21/17 Tiotropium [place] [Spiriva Respimat] 2 puff IH DAILY 06/21/17 Sour Scott Extract [Tart Scott Extract] 1,000 mg PO DAILY 01/07/18 Aspirin [Aspirin, Baby] 81 mg PO DAILY 12/30/18 Febuxostat [Uloric] 40 mg PO DAILY 12/30/18 Sitagliptin Phosphate [Januvia] 50 mg PO DAILY 12/30/18 Triamterene 37.5MG/Hctz 25MG [Maxzide 37.5 mg-25 mg Tablet] 1 tablet PO DAILY 12/30/18 Polyethylene Glycol 3350 [Miralax] 17 gm PO DAILY PRN 01/21/19 Ranitidine [Zantac] 150 mg PO DAILY 01/21/19 Doxycycline 100 mg PO BID 30 Days #60 capsule 01/24/19 Piperacil/Tazobactam [Zosyn] 3.375 gm IV Q8 30 Days #90 vial 01/24/19 The following prescriptions were given: Doxycycline 100 mg PO BID 30 Days #60 capsule Piperacil/Tazobactam [Zosyn] 3.375 gm IV Q8 30 Days #90 vial Primary Care Physician: Veronica Oquendo DO [Primary Care Provider] - Please follow up with your Primary Care Physician in: in 1 week Test Results: Test results from this visit will be discussed in further detail at your follow-up appointment, if applicable. Please Follow Up With: Octavio Delgado MD When: in 1 week Please Follow Up With: Octavio Adam MD When: in 2-4 weeks Proposed Discharge Date: 01/25/19
--- NOTE | 2019-01-25 08:16 | DS.PCM_ITS ---
Discharge Date and Diagnosis - Problem List Patient Problems: Active and Suspected Problems Lung abscess (Acute) Date of Admission: 01/21/19 Date of Discharge: 01/25/19 - Primary Discharge Diagnosis Active and Suspected Problems Lung abscess (Acute) - Secondary Discharge Diagnosis Chronic Problems On home O2 (Chronic) Sarcoidosis (Chronic) Type 2 diabetes mellitus (Chronic) Chronic obstructive lung disease (Chronic) mild Hyperlipidemia (Chronic) CKD (chronic kidney disease), stage II (Chronic) Benign hypertension (Chronic) Hospital Course and Treatment Imaging Results: Clinical Impression(s) from Imaging Studies Chest CT 01/22/19 09:53 IMPRESSION: There is dense opacity in the lateral segment of the left upper lobe with an air-fluid level, either representing an abscess or infected cavity. There is a small left pleural effusion. There has been improvement in the scattered consolidations seen previously in both lower lobes, right upper lobe and right middle lobe. Electronically Signed: Debby Ferrari MD at 11:28 EST , Service support , ADDENDUM: 01/22/19 1149 IMPRESSION: There is dense opacity in the lateral segment of the left upper lobe with an air-fluid level, either representing an abscess or infected cavity. There is a small left pleural effusion. There has been improvement in the scattered consolidations seen previously in both lower lobes, right upper lobe and right middle lobe. N.B. : The above information has been verbally conveyed by Debby Ferrari MD to SARA Stephenson, on 01/22/2019 11:42:29 (ET). Electronically Signed: Debby Ferrari MD at 11:28 EST , Service support , Chest X-Ray 01/24/19 05:55 IMPRESSION: Stable at the level of the left upper lobe suggestive of a lung abscess. Improved aeration of the left lung base. Increased markings at the right lung base. Electronically Signed: Anam Larios MD at 12:24 EST , Service support , Operations: None Summary of Care Provided: Patient is a 68-year-old lady with recent hospitalization for influenza A infection complicated by Pseudomonas readmitted with generalized weakness. Imaging studies obtained on admission demonstrated left upper lobe lung abscess admitted to regular nursing floor for further management 1. Left upper lobe lung abscess patient was initially managed on cefepime and vancomycin switched to Zosyn and p.o. doxycycline following consultation by Dr. Adam with infectious disease. Case was also discussed with patient oracle business analyst Dr. Delgado plan is for patient to have a PICC line placed with IV antibiotics as outpatient patient will be treated for duration of 4 weeks 2. Chronic hypoxic respiratory failure secondary to COPD patient is on baseline 2.5 L oxygen at home 3. Chronic kidney disease kidney function at baseline 4. Diabetes mellitus type 2 5. Essential hypertension 6. Dyslipidemia 7. DVT prophylaxis SC heparin Patient Problems: Active and Suspected Problems Lung abscess (Acute) Objective: GENERAL: cooperative HEENT: Atraumatic; EYES; Anicteric, Normal Conjunctiva NECK; supple, normal thyroid, RESPIRATORY: Diminished to auscultation bilaterally, CARDIOVASCULAR: Regular S1 S2, GI: soft, non-tender, normoactive bowel sounds, : No Renal angle tenderness; EXTREMITIES: No edema, no clubbing, no cyanosis. NEURO: Awake; no lateralizing signs. SKIN: No Rash - Physical Exam Vital Signs Temp Pulse Resp BP Pulse Ox 98.2 F 90 16 122/54 H 98 01/25/19 08:00 01/25/19 08:00 01/25/19 08:00 01/25/19 08:00 01/25/19 08:00 Oxygen Flow Rate (L/min) 2 Oxygen Delivery Method Nasal Cannula Weight: 90.2 kg Body Mass Index (BMI) 38.8 Intake and Output for Last 24 Hours 01/23/19 01/24/19 01/25/19 23:59 23:59 23:59 Intake Total 1767.8 / 1767.8 2914 / 2914 660 / 660 Output Total 1999 3050 / 3050 1550 / 1550 Balance -232.2 / -232.2 -136 / -136 -890 / -890 Laboratory Tests Past 24 Hrs 01/21/19 01/22/19 01/23/19 18:32 06:18 05:21 Diff Path Review Reviewed Reviewed Reviewed POC Glucose 01/25/19 01/24/19 01/24/19 06:45 21:56 16:07 POC Glucose 186 H 188 H 174 H 01/24/19 11:26 POC Glucose 144 H Discharge Activity: Return to Normal Activity Home Medications: Medications to take at Discharge Albuterol Aerosols [Ventolin Aerosols] 2.5 mg INHALATION Q6H PRN PRN 07/07/14 Fenofibric Acid (Choline) [Trilipix] 135 mg PO DAILY 07/07/14 Lactobacillus Combination No.4 [Probiotic] 1 each PO DAILY 07/07/14 Loratadine [Claritin] 10 mg PO DAILY 07/07/14 Losartan Potassium [Cozaar] 50 mg PO DAILY 07/07/14 Montelukast [Singulair] 10 mg PO QHS 07/07/14 Alendronate Sodium [Fosamax] 70 mg PO QWEEK 06/21/17 Cholecalciferol (Vitamin D3) [Vitamin D3] 1,000 unit PO DAILY 06/21/17 Fluticasone 0.05% [Flonase Nasal [place]] 1 spray NASAL DAILY PRN PRN 06/21/17 Fluticasone/Salmeterol [Advair 500/50 Mcg Diskus] 1 puff INHALATION BID 06/21/17 Insulin Detemir [Levemir FlexPen] 30 units SC QHS 06/21/17 [place]-3S/Dha/Epa/Fish Oil [Fish Oil 1,200 mg Softgel] 1 each PO DAILY [facility] 06/21/17 Pantoprazole Sodium [Protonix] 40 mg PO DAILY 06/21/17 Tiotropium [place] [Spiriva Respimat] 2 puff IH DAILY 06/21/17 Sour Scott Extract [Tart [place] Extract] 1,000 mg PO DAILY 01/07/18 Aspirin [Aspirin, Baby] 81 mg PO DAILY 12/30/18 Febuxostat [Uloric] 40 mg PO DAILY 12/30/18 Sitagliptin Phosphate [Januvia] 50 mg PO DAILY 12/30/18 Triamterene 37.5MG/Hctz 25MG [Maxzide 37.5 mg-25 mg Tablet] 1 tablet PO DAILY 12/30/18 Polyethylene Glycol 3350 [Miralax] 17 gm PO DAILY PRN 01/21/19 Ranitidine [Zantac] 150 mg PO DAILY 01/21/19 Doxycycline 100 mg PO BID 30 Days #60 capsule 01/24/19 Piperacil/Tazobactam [Zosyn] 3.375 gm IV Q8 30 Days #90 vial 01/24/19 Following Prescrptions Were Given to Patient: Doxycycline 100 mg PO BID 30 Days #60 capsule Piperacil/Tazobactam [Zosyn] 3.375 gm IV Q8 30 Days #90 vial Primary Care Physician: Veronica Oquendo DO [Primary Care Provider] - Please follow up with your Primary Care Physician in: in 1 week Please Follow Up With: Octavio Delgado MD When: in 1 week Please Follow Up With: Octavio Adam MD When: in 2-4 weeks Disposition: Home Minutes spent on discharge:: 35 Patient Condition:: Stable Medical Necessity - Tobacco Use Smoking Status: Former smoker Tobacco Use: Cigarettes Meaningful Use Info Meaningful Use Diagnoses (Choose all that apply): None applicable Code Visit Inpatient E&M: 58290 Disch Hosp
[2019-01-25] MEDS: Aspirin 81 MG TAB.CHEW PO (08:21)
[2019-01-25] MEDS: Fluticasone 0.05% 1 SPRAY NASAL.SRY NASAL (08:21)
[2019-01-25] MEDS: Losartan Potassium 50 MG Tablet PO (10:28)
[2019-01-25] MEDS: Loratadine 10 MG Tablet PO (10:28)
[2019-01-25] MEDS: Triamterene 75MG/Hctz 50MG Tablet 0.5 TABLET PO (10:29)
[2019-01-25] MEDS: Doxycycline 100 MG CAPSULE PO (10:29)
[2019-01-25] MEDS: Febuxostat 40 MG TABLET PO (10:30)
[2019-01-25] MEDS: Pantoprazole Sodium 40 MG Tablet PO (10:30)
[2019-01-25] MEDS: guaiFENesin 1,200 MG Tablet 1200 MG PO (10:30)
--- NOTE | 2019-01-25 10:33 | CASEMGMT ---
SARA BARON received updated from [facility] that they are able to deliver ATB by 9pm today. SARA BARON updated [place] from [facility] with contact number for patient to discuss financials. SARA BARON confirmed with [facility] that they are able to see the patient at 9pm. SARA BARON updated the patient for discharge planned for today to home with IV ATB and [facility] for tonight at 9pm. Patient will need 2pm dose of Zosyn prior to discharge. SARA BARON updated floor RN regarding planned discharge after 2pm dose of Zosyn. SARA BARON will continue to follow this patient and plan for a safe discharge.
--- NOTE | 2019-01-25 11:25 | PCM.PN.ID ---
Patient Problems: Active and Suspected Problems Lung abscess (Acute) Subjective: Feeling better, mild nausea, picc placed, no fever. Coughing up some yellow sputum this AM. - Physical Exam General: Alert, Cooperative, No apparent distress Lungs: Diminished Cardiovascular: Regular rate, Regular Rhythm Abdomen: Soft, Non Tender, Non-Distended Skin: No rashes Vital Signs Temp Pulse Resp BP Pulse Ox 98.2 F 90 16 122/54 H 98 01/25/19 08:00 01/25/19 08:00 01/25/19 08:00 01/25/19 08:00 01/25/19 08:00 Oxygen Flow Rate (L/min) 2 Oxygen Delivery Method Nasal Cannula Weight: 90.2 kg Body Mass Index (BMI) 38.8 Intake and Output for Last 24 Hours 01/23/19 01/24/19 01/25/19 23:59 23:59 23:59 Intake Total 1767.8 / 1767.8 2914 / 2914 660 / 660 Output Total 1999 3050 / 3050 1550 / 1550 Balance -232.2 / -232.2 -136 / -136 -890 / -890 Microbiology Past 72 Hours 01/24/19 14:50 Gram Stain - Final Sputum, Expectorated/Coughed Respiratory Culture - Preliminary Appears to be normal respiratory hermelindo. Further studies to follow. Laboratory Tests Past 24 Hrs 01/21/19 01/22/19 01/23/19 18:32 06:18 05:21 Diff Path Review Reviewed Reviewed Reviewed POC Glucose 01/25/19 01/24/19 01/24/19 06:45 21:56 16:07 POC Glucose 186 H 188 H 174 H 01/24/19 11:26 POC Glucose 144 H Medical Necessity - Tobacco Use Smoking Status: Former smoker Tobacco Use: Cigarettes Route of nutrition/ use of supplements: [] Nutritional Intake: [] IV Site: [] Winter Catheter: [] - Assessment/Plan Antibiotics: [] Assessment/Plan: [] Active and Suspected Problems Lung abscess (Acute) Recent flu and Pseudomonas pneumonia. Low risk for TB exposure, neg PPD in the past. Reports she does not tolerate FQs due to upset stomach. Cont iv zosyn for PsA and anaerobic coverage and po doxy for empiric MRSA coverage. Pending sputum cx. Picc placed. Plan on 4 week course of abx, stop date 02/22/19, weekly bmp, cbc while on iv abx. Duration will change depending on followup cxr and resolution of abscess. Will follow. ID followup with me in wound care center in 3-4 weeks.
[2019-01-25 12:06] LABS: Bedside Glucose 138 mg/dL (70-110)
[2019-01-25 13:59] VITALS: BP 129/53; PULSE 90; RESP 16; TEMP 36.9; O2SAT 94
--- NOTE | 2019-01-26 13:24 | CASEMGMT ---
SARA BARON Discharge Follow-up Phone Call: CHRIS: 9 Strata: 3 Call Date: 01/26/19 Discharge Date: 01/25/19 Time of Call: 1320 Duration: 1 min Admitting Diagnosis: Lung Abscess RN LORAINE attempted to complete follow-up phone call after recent hospitalization. No answer, voice message left with return contact information. Patient was setup with HHC and IV ATBs at discharge.
== END 2019-01-25 14:29 | disposition home or self-care (01) | DRG 177 ==
PROVIDERS: Hospitalist; Admitting Provider Family Medicine; Family Provider Internal Medicine Pulmonary Disease; PCP Internal Medicine; Visit Provider Internal Medicine
DX: J85.1 Abscess of lung with pneumonia (principal); J15.1 Pneumonia due to Pseudomonas; J96.11 Chronic respiratory failure with hypoxia; J44.9 Chronic obstructive pulmonary disease, unspecified; E11.22 Type 2 diabetes mellitus with diabetic chronic kidney disease; I12.9 Hypertensive chronic kidney disease with stage 1 through stage 4 chronic kidney disease, or unspecified chronic kidney disease; D86.9 Sarcoidosis, unspecified; Z99.81 Dependence on supplemental oxygen; E78.5 Hyperlipidemia, unspecified; Z87.891 Personal history of nicotine dependence; N18.2 Chronic kidney disease, stage 2 (mild); Z79.4 Long term (current) use of insulin; B96.5 Pseudomonas (aeruginosa) (mallei) (pseudomallei) as the cause of diseases classified elsewhere
CPT/HCPCS: 36415; 36569; 71046; 71250; 80048; 80202; 82962; 85025; 85610; 85730; 87070; 87205; 93005; 94640; 94668; 97110; 97116; 97162; 97166; 97530; 97535; J7040; J7050; A4216

== ENCOUNTER → 2019-01-27 10:46 | Outpatient (CLI) | payer MEDICARE, OTHER, SELFPAY ==
[2019-01-21 18:20] VITALS: BMI 38.8
--- NOTE | 2019-01-27 10:51 | RAD_ITS ---
STUDY: X-RAY CHEST REASON FOR EXAM: Female, 68 years old. Lung abscess, painful TECHNIQUE: Frontal and lateral views of the chest. COMPARISON: CT scan 01/22/2019, chest x-ray 01/24/2019.. FINDINGS: There is a right PICC line that appears to terminate in the mid SVC. Grossly stable appearance of a cavitary lesion in the left apex measuring 8.3 cm and with an air-fluid level in Otherwise fibrotic changes are suggested in both lungs with probable scarring or atelectasis especially prominent in the lung bases. Blunting of the left costophrenic angle is most likely from scarring but cannot exclude a small pleural effusion. The appearance is stable. There is mild cardiac enlargement. There are calcified mediastinal lymph nodes. Normal visualized pulmonary arteries. Normal visualized aortic arch and descending thoracic aorta. There is a dextroscoliosis of the thoracic spine. Normal visualized ribs, clavicles, and shoulders. There is no demonstrated abnormality of the visualized soft tissue structures of the upper abdomen. RAD/Chest PA and Lateral IMPRESSION: No significant change. Stable 8.3 cm cavitary lesion of the left upper lobe with an air-fluid level. Electronically Signed: Dustin Mcqueen MD at 14:51 EST , Service support ,
== END ==
PROVIDERS: Family Provider Internal Medicine; PCP Internal Medicine; Referring Provider Internal Medicine Pulmonary Disease; Visit Provider Internal Medicine Pulmonary Disease
DX: J85.2 Abscess of lung without pneumonia (principal)
CPT/HCPCS: 71046

== ENCOUNTER → 2019-02-03 12:10 | Outpatient (CLI) | payer MEDICARE, OTHER, SELFPAY ==
[2019-01-21 18:20] VITALS: BMI 38.8
--- NOTE | 2019-02-03 12:14 | RAD_ITS ---
STUDY: X-RAY CHEST REASON FOR EXAM: Female, 68 years old. Lung abscess TECHNIQUE: Frontal and lateral views of the chest COMPARISON: X-ray dated 01/27/2019. CT dated 01/22/2019 FINDINGS: There is a right-sided PICC line with its tip in the superior vena cava. There is an air and fluid-filled cavitary lesion in the left upper lobe which is stable when compared with the prior exam. This is consistent with the patient's known abscess. There is a stable small left pleural effusion. The right lung is clear. The heart is enlarged, but stable. The visualized osseous structures are within normal limits. RAD/Chest PA and Lateral IMPRESSION: Stable exam. Electronically Signed: Jeremiah Woods, at 16:01 EST Tel , Service support ,
[2019-02-03 14:32] LABS: Erythrocyte Sedimentation Rate 42 mm/hr (0-30)
== END ==
PROVIDERS: Family Provider Internal Medicine; PCP Internal Medicine; Referring Provider Internal Medicine Pulmonary Disease; Visit Provider Internal Medicine Pulmonary Disease
DX: J85.2 Abscess of lung without pneumonia (principal); R05 Cough
CPT/HCPCS: 36415; 71046; 85652

== ENCOUNTER 2019-02-16 09:41 | Day surgery (SDC) | payer MEDICARE, OTHER, SELFPAY ==
[2019-02-16] VITALS (15 sets, daily range): BP systolic 99–124; BP diastolic 50–102; PULSE 80–104; RESP 18–20; TEMP 36.4–36.9; O2SAT 93–98; BMI 38.9
--- NOTE | 2019-02-16 | FLU_PTH ---
PATIENT: WALLACE BAZAN LOC: EN U#:[id number] AGE/SX: 68/F ROOM: RE02/16/[address]: Dr. Octavio Delgado MD : 1950 BED: DIS: 02/16/2019 SPEC #: [id number] RECD: 02/16/19 12:00 STATUS: JEFFRY JUSTYNA #: [id number] TIFFANIE: 02/16/19 00:[address]: Octavio Delgado V DEPT: CYTOLOGY RECD BY: Eliezer Edgar ENTERED: 02/16/19 13:05 SP TYPE: Fluid OTHR DR: Dr. Veronica Oquendo DO Tissues: A - Bronchus, NOS Trachea, NOS Procedures: Special Stain Group II Surgery Specimen Level IV Cytospin Fluid Cytology Other HEADER OPERATION: Bronchoscopy PRE-OP DIAGNOSIS: Chronic cough, abnormal CT TISSUE SUBMITTED: A - Bronchial washings ANALILIA, B - Trachea brushing slides x3 DIAGNOSIS CYTOLOGY A. Bronchial washings, ANALILIA (cytospin and cell block): Negative for malignant cells. See cytology study. B. Trachea, brushing (smears): Negative for malignant cells. See cytology study. SJ:rg 02/17/19 CYTOLOGY STUDY Slides are reviewed. A. The specimen consists of respiratory epithelial cells, squamous cells, macrophages and inflammatory cells. B. The specimen predominantly consists of respiratory epithelial cells, squamous cells and squamous metaplastic cells. CYTOLOGY GROSS A - Received is 13 ml of cloudy colorless fluid labeled with the patient's name and and designated per the requisition as bronchial washings ANALILIA. Submitted for cytology preparation including cell block. B - Received are three smears labeled with the patient's name and designated per the requisition as trachea. Submitted for staining. 02/16/19 TC:5 CPT: 42770, 21307, 90982
[2019-02-16 11:05] LABS: Bedside Glucose 107 mg/dL (70-110)
--- NOTE | 2019-02-16 11:41 | OP.ENDO_ITS ---
Patient Name: Sugey Ling Procedure Date: 02/16/2019 9:50 AM Date of : 1950 Age: 68 Procedure: Bronchoscopy Indications: Chronic cough, Chronic cough with abnormal CT Providers: Octavio Delgado MD Referring MD: Octavio Delgado MD Medicines: Lidocaine applied to nares and subglottic space, Lidocaine 2% applied to the tracheobronchial tree 8 mL Complications: No immediate complications Procedure: Pre-Anesthesia Assessment: - A History and Physical has been performed. Patient meds and allergies have been reviewed. The risks and benefits of the procedure and the sedation options and risks were discussed with the patient. All questions were answered and informed consent was obtained. Patient identification and proposed procedure were verified prior to the procedure by the physician and the nurse. Mental Status Examination: normal. CV Examination: normal. ASA Grade Assessment: II - A patient with mild systemic disease. After reviewing the risks and benefits, the patient was deemed in satisfactory condition to undergo the procedure. The anesthesia plan was to use moderate sedation / analgesia (conscious sedation). Immediately prior to administration of medications, the patient was re-assessed for adequacy to receive sedatives. The heart rate, respiratory rate, oxygen saturations, blood pressure, adequacy of pulmonary ventilation, and response to care were monitored throughout the procedure. The physical status of the patient was re-assessed after the procedure. After I obtained informed consent, the scope was passed under direct vision. Throughout the procedure, the patient's blood pressure, pulse, and oxygen saturations were monitored continuously. The bronchoscope was introduced through the mouth and advanced to the tracheobronchial tree of both lungs. The patient tolerated the procedure well. The total duration of the procedure was 15 minutes. Moderate Sedation: An independent trained observer was present and continuously monitored the patient. Findings: Respiratory tract: The larynx is normal. The vocal cords appear normal. The subglottic space is normal, but the trachea is not normal. The adonay is sharp. The entire tracheobronchial tree was examined to at least the first subsegmental level. Bronchial mucosa and anatomy are normal; there are no endobronchial lesions, and no secretions. The larynx is normal. The vocal cords appear normal. The subglottic space is normal, but the trachea is not normal. The adonay is sharp. The entire tracheobronchial tree was examined to at least the first subsegmental level. Bronchial mucosa and anatomy are normal; there are no endobronchial lesions, and no secretions. The larynx is normal. The vocal cords appear normal. The subglottic space is normal, but the trachea is not normal. The adonay is sharp. The entire tracheobronchial tree was examined to at least the first subsegmental level. Bronchial mucosa and anatomy are normal; there are no endobronchial lesions, and no secretions. Bronchoalveolar lavage was performed in the ANALILIA anterior segment (B3) of the lung. 120 mL of fluid were instilled. 20 mL were returned. The return was clear. There were no mucoid plugs in the return fluid. Multiple specimens were obtained, and each sent for analysis. Brushings of a lesion were obtained in the left mainstem bronchus. Two samples were obtained. Impression: - Chronic cough - Chronic cough with abnormal CT - Bronchoalveolar lavage was performed. - Brushings were obtained. - The airway examination was normal. - The airway examination was normal. Recommendation: - Await BAL and cytology results. Procedure Code(s): --- Professional --- 62648, LT, Bronchoscopy, rigid or flexible, including fluoroscopic guidance, when performed; with bronchial alveolar lavage 51403, RT, Bronchoscopy, rigid or flexible, including fluoroscopic guidance, when performed; with brushing or protected brushings Diagnosis Code(s): --- Professional --- R05, Cough R91.8, Other nonspecific abnormal finding of lung field CPT copyright 2017 [employer]. All rights reserved. The codes documented in this report are preliminary and upon brood hatchery manager review may be revised to meet current compliance requirements. MD Octavio Marquez MD 02/16/2019 11:41:06 AM This report has been signed electronically. Number of Addenda: 0 Note Initiated On: 02/16/2019 9:50 AM
[2019-02-16 12:02] LABS: Cytology, Body Fluid / CSF SEE PATHOLOGY REPORT
--- NOTE | 2019-02-16 13:40 | RAD_ITS ---
STUDY: X-RAY CHEST REASON FOR EXAM: Female, 68 years old. Post procedure TECHNIQUE: PA and lateral views of the chest. COMPARISON: February 03, 2019 chest x-ray FINDINGS: There is a right-sided PICC line the tip is in the superior vena cava somewhat difficult to visualize. There is a left upper lobe cavitary mass with an air-fluid level. There is a suggestion of a greater gas bubble and lesser soft tissue or fluid since prior study. The overall area measures 6.4 x 5.5 cm. Prior study it measured 8.4 x 6.5 cm. There is blunting of the left costophrenic angle. There is increased density in the left lung base. There is mild cardiac enlargement. There are calcified mediastinal lymph nodes. Normal visualized pulmonary arteries. Normal visualized aortic arch and descending thoracic aorta. There is dextroscoliosis of the thoracic spine centered at the thoracolumbar junction. Normal visualized ribs, clavicles, and shoulders. There is no demonstrated abnormality of the visualized soft tissue structures of the upper abdomen. RAD/Chest PA and Lateral IMPRESSION: Left upper lobe cavitary lesion slightly smaller than prior study. Left effusion and atelectasis. Right-sided PICC line. Evidence of old granulomatous disease. Electronically Signed: Ivone Guevara MD at 14:07 EDT Tel , Service support ,
== END 2019-02-16 13:30 | disposition home or self-care (01) ==
LOC: EN 09:42 → AC 09:42
PROVIDERS: Family Provider Internal Medicine; PCP Internal Medicine; Referring Provider Internal Medicine Pulmonary Disease; Visit Provider Internal Medicine Pulmonary Disease
PROC: 0BJ08ZZ Inspection of Tracheobronchial Tree, Via Natural or Artificial Opening Endoscopic (ICD-10-PCS; CPT 31622; principal; 2019-02-16 10:45)
DX: J85.2 Abscess of lung without pneumonia (principal); R05 Cough; R91.8 Other nonspecific abnormal finding of lung field; J45.902 Unspecified asthma with status asthmaticus; G47.33 Obstructive sleep apnea (adult) (pediatric); E11.9 Type 2 diabetes mellitus without complications; K21.9 Gastro-esophageal reflux disease without esophagitis; E66.09 Other obesity due to excess calories; Z68.41 Body mass index [BMI] 40.0-44.9, adult; Z87.891 Personal history of nicotine dependence; Z85.828 Personal history of other malignant neoplasm of skin
CPT/HCPCS: 31623; 31624; 71046; 82962; 87070; 87106; 87205; 88108; 88161; 88305; 88313; J7120; A4216; J2405

== ENCOUNTER 2019-02-21 14:36 | Outpatient (RCR) | payer MEDICARE, OTHER, SELFPAY ==
[2019-01-31 15:46] LABS: Hematocrit 32.2 % (37-47); Hemoglobin 9.6 g/dl (12.0-15.0); Mean Corp Hgb Conc 29.8 g/gl (32-36); Mean Corpuscular Hgb 29.2 pg (27.0-32.0); Mean Corpuscular Volume 97.9 fL (81-99); Mean Platelet Vol. 9.4 fl (6.2-12.0); Platelet Count 345 K/mm3 (150-450); RBC Distribution Width CV 15.2 % (11.6-14.6); RBC Distribution Width SD 51.6 fl (35.1-43.9); Red Blood Count 3.29 M/mm3 (4.2-5.4); White Blood Count 8.4 K/mm3 (4.4-11.0)
[2019-01-31 15:53] LABS: Scan Indicated on CBC? Y/N NO
[2019-01-31 16:18] LABS: Anion Gap 7 (5-15); BUN 21 mg/dL (7-18); BUN/Creat Ratio 14.9 RATIO (10-20); Calcium,Total 9.6 mg/dL (8.5-10.1); Chloride 109 mmol/L (98-107); Creatinine, Serum 1.41 mg/dL (0.55-1.02); EST Glomerular Filtration Rate 39 mL/min (>60); Est Glom Filt Rate - Afr Amer 48 mL/min (>60); Glucose 102 mg/dL (74-106); Potassium 4.7 mmol/L (3.5-5.1); Sodium Level 141 mmol/L (136-145)
[2019-02-07 11:51] LABS: Hematocrit 34.9 % (37-47); Hemoglobin 10.5 g/dl (12.0-15.0); Mean Corp Hgb Conc 30.1 g/gl (32-36); Mean Corpuscular Hgb 29.4 pg (27.0-32.0); Mean Corpuscular Volume 97.8 fL (81-99); Mean Platelet Vol. 9.7 fl (6.2-12.0); Platelet Count 352 K/mm3 (150-450); RBC Distribution Width CV 16.1 % (11.6-14.6); RBC Distribution Width SD 53.8 fl (35.1-43.9); Red Blood Count 3.57 M/mm3 (4.2-5.4); White Blood Count 9.2 K/mm3 (4.4-11.0)
[2019-02-07 11:55] LABS: Anion Gap 9 (5-15); BUN 25 mg/dL (7-18); BUN/Creat Ratio 16.3 RATIO (10-20); Calcium,Total 9.5 mg/dL (8.5-10.1); Chloride 106 mmol/L (98-107); Creatinine, Serum 1.53 mg/dL (0.55-1.02); EST Glomerular Filtration Rate 36 mL/min (>60); Est Glom Filt Rate - Afr Amer 43 mL/min (>60); Glucose 151 mg/dL (74-106); Potassium 4.3 mmol/L (3.5-5.1); Sodium Level 141 mmol/L (136-145)
[2019-02-07 11:58] LABS: Scan Indicated on CBC? Y/N NO
[2019-02-14 12:48] LABS: Hematocrit 35.7 % (37-47); Hemoglobin 10.8 g/dl (12.0-15.0); Mean Corp Hgb Conc 30.3 g/gl (32-36); Mean Corpuscular Hgb 29.2 pg (27.0-32.0); Mean Corpuscular Volume 96.5 fL (81-99); Platelet Count 305 K/mm3 (150-450); RBC Distribution Width CV 15.8 % (11.6-14.6); RBC Distribution Width SD 52.7 fl (35.1-43.9); White Blood Count 11.1 K/mm3 (4.4-11.0)
[2019-02-14 12:54] LABS: Scan Indicated on CBC? Y/N NO
[2019-02-14 12:59] LABS: Anion Gap 5 (5-15); BUN 26 mg/dL (7-18); BUN/Creat Ratio 17.6 RATIO (10-20); Calcium,Total 9.7 mg/dL (8.5-10.1); Chloride 106 mmol/L (98-107); Creatinine, Serum 1.48 mg/dL (0.55-1.02); EST Glomerular Filtration Rate 37 mL/min (>60); Est Glom Filt Rate - Afr Amer 45 mL/min (>60); Glucose 133 mg/dL (74-106); Potassium 3.9 mmol/L (3.5-5.1); Sodium Level 138 mmol/L (136-145)
[2019-02-21 15:12] LABS: Anion Gap 6 (5-15); BUN 25 mg/dL (7-18); BUN/Creat Ratio 15.2 RATIO (10-20); Calcium,Total 10.1 mg/dL (8.5-10.1); Chloride 106 mmol/L (98-107); Creatinine, Serum 1.65 mg/dL (0.55-1.02); EST Glomerular Filtration Rate 33 mL/min (>60); Est Glom Filt Rate - Afr Amer 40 mL/min (>60); Glucose 154 mg/dL (74-106); Potassium 3.8 mmol/L (3.5-5.1); Sodium Level 140 mmol/L (136-145)
[2019-02-21 15:13] LABS: Hematocrit 37.3 % (37-47); Hemoglobin 11.1 g/dl (12.0-15.0); Mean Corp Hgb Conc 29.8 g/gl (32-36); Mean Corpuscular Hgb 29.1 pg (27.0-32.0); Mean Corpuscular Volume 97.6 fL (81-99); Mean Platelet Vol. 10.2 fl (6.2-12.0); Platelet Count 277 K/mm3 (150-450); RBC Distribution Width SD 54.7 fl (35.1-43.9); Red Blood Count 3.82 M/mm3 (4.2-5.4); White Blood Count 9.6 K/mm3 (4.4-11.0)
[2019-02-21 15:23] LABS: Scan Indicated on CBC? Y/N NO
== END 2019-02-27 23:59 ==
LOC: HHLAB 14:36
PROVIDERS: Family Provider Internal Medicine; PCP Internal Medicine; Referring Provider Internal Medicine Infectious Disease; Visit Provider Internal Medicine Infectious Disease
DX: J85.2 Abscess of lung without pneumonia (principal); J44.0 Chronic obstructive pulmonary disease with (acute) lower respiratory infection; J10.01 Influenza due to other identified influenza virus with the same other identified influenza virus pneumonia
CPT/HCPCS: 80048; 85027

== ENCOUNTER → 2019-02-28 16:46 | Outpatient (CLI) | payer MEDICARE, OTHER, SELFPAY ==
[2019-02-16 10:09] VITALS: BMI 38.9
[2019-02-28 01:27] VITALS: BMI 38.8
--- NOTE | 2019-02-28 16:50 | CT_ITS ---
STUDY: CT CHEST WITHOUT CONTRAST REASON FOR EXAM: Female, 68 years old. History of a pulmonary abscess. This is a follow-up examination. RADIATION DOSAGE (If Supplied By Facility): CTDIvol = ( 19.11 ) mGy, DLP = ( 644.74 ) mGycm TECHNIQUE: Transaxial imaging was performed without the administration of intravenous contrast material. Multiplanar coronal and sagittal images were reformatted. Individualized dose optimization techniques were used for this CT. COMPARISON: Comparison is made with prior study dated January 22, 2019. FINDINGS: Stable coarse calcifications in the right lobe of the thyroid gland without a discrete mass. There is a persistent 4.2 cm x 5.8 cm cystic cavity in the left upper lobe. There is evidence of thickening of the cystic wall. The previously seen air-fluid level as cleared. There has been improved aeration of the left upper lobe surrounding the previously seen cystic lesion and infiltration. There now is evidence of a 2.9 cm x 2.1 cm pleural-based soft tissue density in the peripheral lateral aspect of the left lower lobe. This may represent a focal area of infiltration although round atelectasis cannot be ruled out. There is evidence of pleural thickening on the left side. Stable chronic interstitial changes of the lung bases worse on the right side. There are calcifications of the coronary arteries. Numerous calcified mediastinal and bilateral hilar lymph nodes. Normal unenhanced pulmonary arteries. There is atherosclerotic calcification of the aortic arch with tortuosity and elongation of the aortic arch and descending thoracic aorta. There are multi-level degenerative changes of the thoracic spine. There is no demonstrated abnormality of the visualized upper abdomen. CT/Chest without Contrast IMPRESSION: Persistent cavitary lesion in the left upper lobe with decreased surrounding infiltration. New focal infiltration is seen in the posterolateral aspect of the left lower lobe with a small left pleural effusion. The remainder of the examination is unchanged. Electronically Signed: Anam Larios, at 9:40 EDT , Service support ,
== END ==
PROVIDERS: Family Provider Internal Medicine; PCP Internal Medicine; Referring Provider Internal Medicine Infectious Disease; Visit Provider Internal Medicine Infectious Disease
DX: J85.2 Abscess of lung without pneumonia (principal)
CPT/HCPCS: 71250

== ENCOUNTER → 2019-03-02 08:37 | Outpatient (CLI) | payer MEDICARE, OTHER, SELFPAY ==
[2019-02-16 10:09] VITALS: BMI 38.9
[2019-02-28 01:27] VITALS: BMI 38.8
== END ==
PROVIDERS: Family Provider Internal Medicine; PCP Internal Medicine; Referring Provider Internal Medicine; Visit Provider Internal Medicine
DX: R00.0 Tachycardia, unspecified (principal)
CPT/HCPCS: 93225; 93226

== ENCOUNTER 2019-03-03 13:33 | Emergency (ER) | payer MEDICARE, OTHER, SELFPAY ==
[2019-03-03 13:33] VITALS: BMI 38.9
[2019-03-03 13:35] VITALS: BP 159/80; PULSE 110; RESP 17; TEMP 36.3; O2SAT 94; BMI 40.9
--- NOTE | 2019-03-03 13:41 | EKG12_ITS ---
Test Reason : CP Blood Pressure : / mmHG Vent. Rate : 102 BPM Atrial Rate : 102 BPM P-R Int : 174 ms QRS Dur : 098 ms QT Int : 350 ms P-R-T Axes : 052 101 034 degrees QTc Int : 456 ms Sinus tachycardia Rightward axis Low voltage QRS Septal infarct (cited on or before 07-JUL-2014) age undetermined T wave abnormality, consider anterior ischemia Abnormal ECG Confirmed by IRA FELIX, KEREN ([id number]), clinical editor KATHI COLBERT ([id number]) on 03/07/2019 10:47:05 AM Referred By: SHAKIRA Confirmed By:KEREN ROTH MD
--- NOTE | 2019-03-03 13:41 | RAD_ITS ---
STUDY: X-RAY CHEST REASON FOR EXAM: Female, 68 years old. Chest pain with radiation. TECHNIQUE: Single AP portable view of the chest. COMPARISON: Comparison is made with prior study of February 16, 2019. FINDINGS: A right-sided PICC line catheter is in situ with the tip in the midportion of the superior vena cava. Persistent 5.8 cm x 5.5 cm cystic density in the left lung apex. The air-fluid level as resolved. Slight thickening of the wall of the cystic cavity. Persistent mild increased markings at the left lung base suggesting left basilar atelectasis. Normal size heart. There are calcified mediastinal lymph nodes. Normal visualized pulmonary arteries. There is atherosclerotic calcification of the aortic arch with tortuosity. There is a dextroscoliosis of the thoracic spine. Normal visualized ribs, clavicles, and shoulders. There is no demonstrated abnormality of the visualized soft tissue structures of the upper abdomen. RAD/Chest 1 View (Portable) IMPRESSION: Persistent cavitary lesion in the left upper lobe although the air-fluid level is resolved. Residual atelectasis at the left lung base. Electronically Signed: Anam Larios, at 14:28 EDT , Service support ,
[2019-03-03 13:59] VITALS: BP 156/85; PULSE 105; RESP 19; O2SAT 95
[2019-03-03] MEDS: Aspirin 81 MG TAB.CHEW 324 MG PO (14:40)
[2019-03-03 14:41] VITALS: BP 129/77; PULSE 103; RESP 20; O2SAT 98
[2019-03-03 14:41] LABS: Absolute Lymphocyte Count 1.11 X10^3/ul (0.83-4.51); Absolute Neutrophil Count 6.6 X10^3/uL (2.0-7.7); Basophil# 0.04 X10^3/uL; Basophil% 0.4 % (0-1); Eosinophil# 0.42 X10^3/uL; Eosinophils% 4.7 % (0-5); Hematocrit 36.5 % (37-47); Hemoglobin 11.7 g/dl (12.0-15.0); Lymphocyte # 1.11 X10^3/ul (4.0); Lymphocyte % 12.3 % (19-41); Mean Corp Hgb Conc 32.1 g/gl (32-36); Mean Corpuscular Hgb 29.8 pg (27.0-32.0); Mean Corpuscular Volume 93.1 fL (81-99); Mean Platelet Vol. 9.6 fl (6.2-12.0); Monocyte# 0.75 X10^3/uL; Monocyte% 8.3 % (0-10); Neutrophil % 73.2 % (47-70); Platelet Count 275 K/mm3 (150-450); Red Blood Count 3.92 M/mm3 (4.2-5.4)
[2019-03-03 14:42] LABS: POSITIVE COUNT NO; POSITIVE DIFFERENTIAL NO; POSITIVE MORPHOLOGY NO
[2019-03-03 14:59] LABS: Anion Gap 6 (5-15); BUN 23 mg/dL (7-18); BUN/Creat Ratio 14.8 RATIO (10-20); Calcium,Total 9.6 mg/dL (8.5-10.1); Chloride 108 mmol/L (98-107); Creatinine, Serum 1.55 mg/dL (0.55-1.02); EST Glomerular Filtration Rate 35 mL/min (>60); Est Glom Filt Rate - Afr Amer 43 mL/min (>60); Estimated Creatinine Clearance 50.45 ml/min; Glucose 115 mg/dL (74-106); Potassium 4.3 mmol/L (3.5-5.1); Sodium Level 141 mmol/L (136-145)
--- NOTE | 2019-03-03 15:22 | ED.VISSUMM ---
- ER Visit Summary Date of Service: 03/03/19 Chief Complaint: Chest pain History of Present Illness: The patient is a 68 F who presents with chest pain. 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 She describes it as a heaviness and as a pain. It got worse when she exerted herself. When she sat down the pain went away. She got back on the treadmill and the pain started again. She did feel short of breath and had some nausea. She denies any history of coronary disease. Patient is currently on IV Zosyn therapy due to a cavitary lesion in the left upper lobe. It did grow out Pseudomonas. Follow-up Physical Examination: Vital signs reviewed. HEENT exam unremarkable. Heart is tachycardic and regular rhythm without murmurs. Lungs are clear to auscultation. Abdomen is soft and nontender. Extremities reveal no edema. Peripheral pulses are equal. Skin exam normal. Neurologic exam normal. Test Results: EKG is sinus rhythm with nonspecific ST and T wave changes. Chest x-ray reveals a persistent cavitary lesion with no air-fluid level at this time. White blood cell count normal. Hemoglobin 11.7. Creatinine 1.55. Troponin is normal. Emergency Department Course and Treatment: The patient's EKG is nonischemic. Her troponin is normal. I did give her aspirin here. Her ABHIJIT score is 3. The area of this pain is right where she has a cavitary lesion. However, she does have multiple risk factors. She does not want to stay in the hospital. The patient will sign out AMA. She will call her doctors for follow-up Treatment Plan: [] Disposition: AGAINST MEDICAL ADVICE Impression: Exertional chest pain This note was generated with [employer] dictation software. It may contain incorrect words, spelling, and punctuation that were not noted in review of the chart prior to signing ED Disposition - Plan for ED Patient: Referrals: Veronica Oquendo DO [Primary Care Provider] -
--- NOTE | 2019-03-03 15:26 | ED.DCSUM_ITS ---
- ER Visit Summary Date of Service: 03/03/19 Chief Complaint: Chest pain History of Present Illness: The patient is a 68 F who presents with chest pain. 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 She describes it as a heaviness and as a pain. It got worse when she exerted herself. When she sat down the pain went away. She got back on the treadmill and the pain started again. She did feel short of breath and had some nausea. She denies any history of coronary disease. Patient is currently on IV Zosyn therapy due to a cavitary lesion in the left upper lobe. It did grow out Pseudomonas. Follow-up Physical Examination: Vital signs reviewed. HEENT exam unremarkable. Heart is tachycardic and regular rhythm without murmurs. Lungs are clear to a uscultation. Abdomen is soft and nontender. Extremities reveal no edema. Peripheral pulses are equal. Skin exam normal. Neurologic exam normal. Test Results: EKG is sinus rhythm with nonspecific ST and T wave changes. Chest x-ray reveals a persistent cavitary lesion with no air-fluid level at this time. White blood cell count normal. Hemoglobin 11.7. Creatinine 1.55. Troponin is normal. Emergency Department Course and Treatment: The patient's EKG is nonischemic. Her troponin is normal. I did give her aspirin here. Her ABHIJIT score is 3. The area of this pain is right where she has a cavitary lesion. However, she does have multiple risk factors. She does not want to stay in the hospital. The patient will sign out AMA. She will call her doctors for follow-up Treatment Plan: [] Disposition: AGAINST MEDICAL ADVICE Impression: Exertional chest pain This note was generated with [employer] dictation software. It may contain incorrect words, spelling, and punctuation that were not noted in review of the chart prior to signing ED Disposition - Plan for ED Patient: Referrals: Veronica Oquendo DO [Primary Care Provider] -
--- NOTE | 2019-03-03 15:26 | ED.DEP ---
ED Disposition - Plan for ED Patient: Disposition: Home or Assisted Living Instructions: ED Chest Pain Angina Stable Referrals: Veronica Oquendo DO [Primary Care Provider] -
[2019-03-03 15:37] VITALS: BP 159/69; PULSE 97; RESP 16; O2SAT 97
== END 2019-03-03 15:49 | disposition home or self-care (01) ==
PROVIDERS: Emergency Provider Emergency Medicine; Family Provider Internal Medicine; PCP Internal Medicine
DX: R07.89 Other chest pain (principal); E11.9 Type 2 diabetes mellitus without complications; I10 Essential (primary) hypertension; E78.00 Pure hypercholesterolemia, unspecified; J85.2 Abscess of lung without pneumonia
CPT/HCPCS: 71045; 80048; 84484; 85025; 93005; 99283; J7030; A4216

== ENCOUNTER 2019-03-21 11:12 | Outpatient (RCR) | payer MEDICARE, OTHER, SELFPAY ==
[2019-02-28 01:27] VITALS: BMI 38.8
[2019-02-28 16:04] LABS: Hematocrit 36.4 % (37-47); Hemoglobin 11.3 g/dl (12.0-15.0); Mean Corpuscular Hgb 29.1 pg (27.0-32.0); Mean Corpuscular Volume 93.8 fL (81-99); Mean Platelet Vol. 10.1 fl (6.2-12.0); Platelet Count 312 K/mm3 (150-450); RBC Distribution Width CV 16.3 % (11.6-14.6); RBC Distribution Width SD 54.2 fl (35.1-43.9); Red Blood Count 3.88 M/mm3 (4.2-5.4); White Blood Count 10.7 K/mm3 (4.4-11.0)
[2019-02-28 16:05] LABS: Scan Indicated on CBC? Y/N NO
[2019-02-28 16:29] LABS: Anion Gap 6 (5-15); BUN 29 mg/dL (7-18); BUN/Creat Ratio 15.7 RATIO (10-20); Calcium,Total 9.4 mg/dL (8.5-10.1); Chloride 109 mmol/L (98-107); Creatinine, Serum 1.85 mg/dL (0.55-1.02); EST Glomerular Filtration Rate 29 mL/min (>60); Est Glom Filt Rate - Afr Amer 35 mL/min (>60); Glucose 126 mg/dL (74-106); Sodium Level 141 mmol/L (136-145)
[2019-03-07 15:46] LABS: Hematocrit 37.7 % (37-47); Hemoglobin 11.7 g/dl (12.0-15.0); Mean Corpuscular Hgb 29.3 pg (27.0-32.0); Mean Corpuscular Volume 94.5 fL (81-99); Mean Platelet Vol. 9.8 fl (6.2-12.0); Platelet Count 295 K/mm3 (150-450); RBC Distribution Width CV 16.1 % (11.6-14.6); RBC Distribution Width SD 55.9 fl (35.1-43.9); Red Blood Count 3.99 M/mm3 (4.2-5.4)
[2019-03-07 15:47] LABS: Scan Indicated on CBC? Y/N NO
[2019-03-07 16:05] LABS: Anion Gap 7 (5-15); BUN 22 mg/dL (7-18); BUN/Creat Ratio 13.3 RATIO (10-20); Calcium,Total 10.1 mg/dL (8.5-10.1); Chloride 106 mmol/L (98-107); Creatinine, Serum 1.65 mg/dL (0.55-1.02); EST Glomerular Filtration Rate 33 mL/min (>60); Est Glom Filt Rate - Afr Amer 40 mL/min (>60); Glucose 121 mg/dL (74-106); Sodium Level 141 mmol/L (136-145)
[2019-03-14 14:51] LABS: Hematocrit 38.2 % (37-47); Hemoglobin 11.8 g/dl (12.0-15.0); Mean Corp Hgb Conc 30.9 g/gl (32-36); Mean Corpuscular Volume 93.9 fL (81-99); Mean Platelet Vol. 9.7 fl (6.2-12.0); Platelet Count 288 K/mm3 (150-450); RBC Distribution Width CV 15.8 % (11.6-14.6); Red Blood Count 4.07 M/mm3 (4.2-5.4); White Blood Count 9.2 K/mm3 (4.4-11.0)
[2019-03-14 14:52] LABS: Anion Gap 5 (5-15); BUN 25 mg/dL (7-18); BUN/Creat Ratio 14.7 RATIO (10-20); Calcium,Total 9.7 mg/dL (8.5-10.1); Chloride 107 mmol/L (98-107); EST Glomerular Filtration Rate 32 mL/min (>60); Est Glom Filt Rate - Afr Amer 38 mL/min (>60); Glucose 165 mg/dL (74-106); Potassium 4.2 mmol/L (3.5-5.1); Scan Indicated on CBC? Y/N NO; Sodium Level 139 mmol/L (136-145)
[2019-03-21 14:29] LABS: Hematocrit 38.6 % (37-47); Hemoglobin 12.1 g/dl (12.0-15.0); Mean Corp Hgb Conc 31.3 g/gl (32-36); Mean Corpuscular Hgb 29.2 pg (27.0-32.0); Mean Corpuscular Volume 93.2 fL (81-99); Mean Platelet Vol. 9.7 fl (6.2-12.0); Platelet Count 315 K/mm3 (150-450); RBC Distribution Width CV 15.7 % (11.6-14.6); RBC Distribution Width SD 53.6 fl (35.1-43.9); Red Blood Count 4.14 M/mm3 (4.2-5.4); White Blood Count 8.7 K/mm3 (4.4-11.0)
[2019-03-21 14:30] LABS: Scan Indicated on CBC? Y/N NO
[2019-03-21 14:34] LABS: Anion Gap 4 (5-15); BUN 40 mg/dL (7-18); BUN/Creat Ratio 22.2 RATIO (10-20); Calcium,Total 9.9 mg/dL (8.5-10.1); Chloride 106 mmol/L (98-107); EST Glomerular Filtration Rate 30 mL/min (>60); Est Glom Filt Rate - Afr Amer 36 mL/min (>60); Glucose 179 mg/dL (74-106); Potassium 4.1 mmol/L (3.5-5.1); Sodium Level 138 mmol/L (136-145)
[2019-03-28 15:28] LABS: Anion Gap 6 (5-15); BUN 29 mg/dL (7-18); BUN/Creat Ratio 16.7 RATIO (10-20); Calcium,Total 10.2 mg/dL (8.5-10.1); Chloride 105 mmol/L (98-107); Creatinine, Serum 1.74 mg/dL (0.55-1.02); EST Glomerular Filtration Rate 31 mL/min (>60); Est Glom Filt Rate - Afr Amer 37 mL/min (>60); Glucose 151 mg/dL (74-106); Potassium 4.1 mmol/L (3.5-5.1); Sodium Level 140 mmol/L (136-145)
[2019-03-28 15:50] LABS: Hematocrit 36.8 % (37-47); Hemoglobin 11.5 g/dl (12.0-15.0); Mean Corp Hgb Conc 31.3 g/gl (32-36); Mean Corpuscular Hgb 29.1 pg (27.0-32.0); Mean Corpuscular Volume 93.2 fL (81-99); Mean Platelet Vol. 9.6 fl (6.2-12.0); Platelet Count 312 K/mm3 (150-450); RBC Distribution Width CV 15.1 % (11.6-14.6); RBC Distribution Width SD 51.6 fl (35.1-43.9); Red Blood Count 3.95 M/mm3 (4.2-5.4); White Blood Count 8.6 K/mm3 (4.4-11.0)
[2019-03-28 15:56] LABS: Scan Indicated on CBC? Y/N NO
== END 2019-03-29 23:59 ==
LOC: HHLAB 11:12
PROVIDERS: Family Provider Internal Medicine; PCP Internal Medicine; Referring Provider Internal Medicine Infectious Disease; Visit Provider Internal Medicine Infectious Disease
DX: J85.2 Abscess of lung without pneumonia (principal)
CPT/HCPCS: 80048; 85027

== ENCOUNTER → 2019-03-24 | Outpatient (CLI) | payer MEDICARE, OTHER, SELFPAY ==
[2019-03-03 13:35] VITALS: BMI 40.9
--- NOTE | 2019-03-24 11:36 | RAD_ITS ---
STUDY: X-RAY CHEST REASON FOR EXAM: Female, 68 years old. Chest pain and cough TECHNIQUE: PA and lateral views of the chest. COMPARISON: 03/03/2019 FINDINGS: Stable appearance of a right PICC line. Previously described pneumatocele in the left upper lobe has diminished in size but is still present. Previously it measured 5.8 x 5.57 m, today's study it measures 4.4 x 3.6 cm. Subtle opacification is also noted in the right upper lobe concerning for early infiltrate. No demonstrated effusion. There are interstitial fibrotic changes of the lungs. There is no demonstrated pleural abnormality. Stable cardiomegaly. Normal mediastinum and arthur. Normal visualized pulmonary arteries. There is atherosclerotic calcification of the aortic arch with tortuosity. There are diffuse degenerative changes of the visualized thoracic spine with a dextroscoliosis. Normal visualized ribs, clavicles, and shoulders. There is no demonstrated abnormality of the visualized soft tissue structures of the upper abdomen. RAD/Chest PA and Lateral IMPRESSION: Previously described cavitary lesion/pneumatocele in the left upper lobe has decreased since the previous study. Continued follow-up recommended to assure complete resolution New subtle opacification in the right upper lobe laterally suggests early infiltrate. Degenerative bony changes Right-sided PICC line tip in the distal SVC Electronically Signed: Randall Turcios MD at 11:53 EDT , Service support ,
== END | disposition home or self-care (01) ==
PROVIDERS: Family Provider Internal Medicine; PCP Internal Medicine; Referring Provider Internal Medicine Infectious Disease; Visit Provider Internal Medicine Infectious Disease
DX: J85.2 Abscess of lung without pneumonia (principal)
CPT/HCPCS: 71046

== ENCOUNTER 2019-04-04 13:22 | Outpatient (RCR) | payer MEDICARE, OTHER, SELFPAY ==
[2019-04-04 13:44] LABS: Hemoglobin 12.2 g/dl (12.0-15.0); Mean Corp Hgb Conc 31.3 g/gl (32-36); Mean Corpuscular Volume 92.6 fL (81-99); Mean Platelet Vol. 9.6 fl (6.2-12.0); Platelet Count 299 K/mm3 (150-450); RBC Distribution Width SD 50.9 fl (35.1-43.9); Red Blood Count 4.21 M/mm3 (4.2-5.4); White Blood Count 9.9 K/mm3 (4.4-11.0)
[2019-04-04 13:45] LABS: Scan Indicated on CBC? Y/N NO
[2019-04-04 14:32] LABS: Anion Gap 7 (5-15); BUN 32 mg/dL (7-18); BUN/Creat Ratio 20.6 RATIO (10-20); Chloride 106 mmol/L (98-107); Creatinine, Serum 1.55 mg/dL (0.55-1.02); EST Glomerular Filtration Rate 35 mL/min (>60); Est Glom Filt Rate - Afr Amer 43 mL/min (>60); Glucose 152 mg/dL (74-106); Potassium 4.5 mmol/L (3.5-5.1); Sodium Level 141 mmol/L (136-145)
== END 2019-04-29 23:59 ==
LOC: HHLAB 13:22
PROVIDERS: Family Provider Internal Medicine; PCP Internal Medicine; Referring Provider Internal Medicine Infectious Disease; Visit Provider Internal Medicine Infectious Disease
DX: J85.1 Abscess of lung with pneumonia (principal); J44.0 Chronic obstructive pulmonary disease with (acute) lower respiratory infection; E78.5 Hyperlipidemia, unspecified; J30.89 Other allergic rhinitis; E66.9 Obesity, unspecified; Z68.39 Body mass index [BMI] 39.0-39.9, adult; Z79.2 Long term (current) use of antibiotics; Z45.2 Encounter for adjustment and management of vascular access device; Z99.81 Dependence on supplemental oxygen; Z79.82 Long term (current) use of aspirin; Z79.4 Long term (current) use of insulin; Z79.51 Long term (current) use of inhaled steroids; Z87.891 Personal history of nicotine dependence
CPT/HCPCS: 80048; 85027

== ENCOUNTER → 2019-04-11 | Outpatient (CLI) | payer MEDICARE, OTHER, SELFPAY ==
[2019-04-11 14:27] LABS: Absolute Lymphocyte Count 1.05 X10^3/ul (0.83-4.51); Absolute Neutrophil Count 7.5 X10^3/uL (2.0-7.7); Basophil# 0.03 X10^3/uL; Basophil% 0.3 % (0-1); Eosinophil# 0.27 X10^3/uL; Eosinophils% 2.7 % (0-5); Hematocrit 37.3 % (37-47); Hemoglobin 11.8 g/dl (12.0-15.0); Lymphocyte # 1.05 X10^3/ul (4.0); Lymphocyte % 10.5 % (19-41); Mean Corp Hgb Conc 31.6 g/gl (32-36); Mean Corpuscular Hgb 28.9 pg (27.0-32.0); Mean Corpuscular Volume 91.2 fL (81-99); Mean Platelet Vol. 9.3 fl (6.2-12.0); Monocyte# 0.98 X10^3/uL; Monocyte% 9.8 % (0-10); Neutrophil # 7.53 X10^3/uL (2.7-7.7); Neutrophil % 75.7 % (47-70); POSITIVE COUNT NO; POSITIVE DIFFERENTIAL NO; POSITIVE MORPHOLOGY NO; Platelet Count 268 K/mm3 (150-450); RBC Distribution Width CV 14.8 % (11.6-14.6); RBC Distribution Width SD 49.8 fl (35.1-43.9); Red Blood Count 4.09 M/mm3 (4.2-5.4)
[2019-04-11 14:42] LABS: Anion Gap 4 (5-15); BUN 28 mg/dL (7-18); BUN/Creat Ratio 15.9 RATIO (10-20); Calcium,Total 10.2 mg/dL (8.5-10.1); Chloride 106 mmol/L (98-107); Creatinine, Serum 1.76 mg/dL (0.55-1.02); EST Glomerular Filtration Rate 31 mL/min (>60); Est Glom Filt Rate - Afr Amer 37 mL/min (>60); Glucose 167 mg/dL (74-106); Potassium 3.9 mmol/L (3.5-5.1); Sodium Level 139 mmol/L (136-145)
== END | disposition home or self-care (01) ==
LOC: MEDOUTP 13:47
PROVIDERS: Family Provider Internal Medicine; PCP Internal Medicine; Referring Provider Internal Medicine Infectious Disease; Visit Provider Internal Medicine Infectious Disease
DX: J85.2 Abscess of lung without pneumonia (principal); N18.9 Chronic kidney disease, unspecified
CPT/HCPCS: 36592; 80048; 85025; A4216

== ENCOUNTER → 2019-04-18 | Outpatient (CLI) | payer MEDICARE, OTHER, SELFPAY ==
[2019-04-18 15:25] LABS: Absolute Lymphocyte Count 1.03 X10^3/ul (0.83-4.51); Absolute Neutrophil Count 6.7 X10^3/uL (2.0-7.7); Basophil# 0.02 X10^3/uL; Basophil% 0.2 % (0-1); Eosinophil# 0.35 X10^3/uL; Hematocrit 39.1 % (37-47); Hemoglobin 12.3 g/dl (12.0-15.0); Lymphocyte # 1.03 X10^3/ul (4.0); Lymphocyte % 11.7 % (19-41); Mean Corp Hgb Conc 31.5 g/gl (32-36); Mean Corpuscular Hgb 28.9 pg (27.0-32.0); Mean Corpuscular Volume 91.8 fL (81-99); Mean Platelet Vol. 9.6 fl (6.2-12.0); Monocyte# 0.63 X10^3/uL; Monocyte% 7.2 % (0-10); Neutrophil # 6.69 X10^3/uL (2.7-7.7); Neutrophil % 76.2 % (47-70); Platelet Count 255 K/mm3 (150-450); RBC Distribution Width CV 14.8 % (11.6-14.6); RBC Distribution Width SD 49.6 fl (35.1-43.9); Red Blood Count 4.26 M/mm3 (4.2-5.4); White Blood Count 8.8 K/mm3 (4.4-11.0)
[2019-04-18 15:33] LABS: POSITIVE COUNT NO; POSITIVE DIFFERENTIAL NO; POSITIVE MORPHOLOGY NO
[2019-04-18 16:02] LABS: Anion Gap 8 (5-15); BUN 32 mg/dL (7-18); BUN/Creat Ratio 18.8 RATIO (10-20); Calcium,Total 9.7 mg/dL (8.5-10.1); Chloride 107 mmol/L (98-107); EST Glomerular Filtration Rate 32 mL/min (>60); Est Glom Filt Rate - Afr Amer 38 mL/min (>60); Glucose 151 mg/dL (74-106); Sodium Level 143 mmol/L (136-145)
== END | disposition home or self-care (01) ==
PROVIDERS: Family Provider Internal Medicine; PCP Internal Medicine; Visit Provider Internal Medicine Infectious Disease
DX: J85.2 Abscess of lung without pneumonia (principal); N18.9 Chronic kidney disease, unspecified
CPT/HCPCS: 36592; 80048; 85025

== ENCOUNTER → 2019-04-23 | Outpatient (CLI) | payer MEDICARE, OTHER, SELFPAY ==
[2019-04-23 10:47] LABS: Hemoglobin 12.2 g/dl (12.0-15.0); Mean Corp Hgb Conc 31.3 g/gl (32-36); Mean Corpuscular Hgb 28.6 pg (27.0-32.0); Mean Corpuscular Volume 91.3 fL (81-99); Mean Platelet Vol. 9.7 fl (6.2-12.0); Platelet Count 274 K/mm3 (150-450); RBC Distribution Width CV 14.5 % (11.6-14.6); RBC Distribution Width SD 47.4 fl (35.1-43.9); Red Blood Count 4.27 M/mm3 (4.2-5.4); White Blood Count 6.9 K/mm3 (4.4-11.0)
[2019-04-23 10:49] LABS: Microalbumin,Random Urine 5.6 mg/L (NO RANGE EST.); Microalbumin:Creatinine Ratio 17.2 mg/g CRE (<30 mg/g CRE); Scan Indicated on CBC? Y/N NO
[2019-04-23 11:23] LABS: Albumin, Serum 3.4 g/dL (3.2-5.0); BUN 29 mg/dL (7-18); BUN/Creat Ratio 17.3 RATIO (10-20); Calcium,Total 9.9 mg/dL (8.5-10.1); Chloride 105 mmol/L (98-107); Creatinine, Serum 1.68 mg/dL (0.55-1.02); EST Glomerular Filtration Rate 32 mL/min (>60); Est Glom Filt Rate - Afr Amer 39 mL/min (>60); Glucose 177 mg/dL (74-106); Magnesium 1.8 mg/dL (1.6-2.6); Phosphorus 2.5 mg/dL (2.5-4.9); Potassium 4.1 mmol/L (3.5-5.1); Sodium Level 142 mmol/L (136-145)
[2019-04-25 09:35] LABS: PTHIN 38.5 pg/mL (18.4-80.1); Vitamin D,25 Hydroxy 47.9 ng/mL (29.95-100.01)
== END | disposition home or self-care (01) ==
LOC: LAB 09:49
PROVIDERS: Family Provider Internal Medicine; PCP Internal Medicine; Referring Provider Internal Medicine Nephrology; Visit Provider Internal Medicine Nephrology
DX: N18.4 Chronic kidney disease, stage 4 (severe) (principal); D63.1 Anemia in chronic kidney disease
CPT/HCPCS: 36415; 80069; 82043; 82306; 82570; 83735; 83970; 85027

== ENCOUNTER → 2019-04-26 | Outpatient (CLI) | payer MEDICARE, OTHER, SELFPAY ==
[2019-04-26 14:27] LABS: Hematocrit 38.8 % (37-47); Hemoglobin 12.4 g/dl (12.0-15.0); Mean Corpuscular Volume 90.7 fL (81-99); Mean Platelet Vol. 9.8 fl (6.2-12.0); Platelet Count 324 K/mm3 (150-450); RBC Distribution Width CV 14.5 % (11.6-14.6); RBC Distribution Width SD 47.3 fl (35.1-43.9); Red Blood Count 4.28 M/mm3 (4.2-5.4); White Blood Count 9.3 K/mm3 (4.4-11.0)
[2019-04-26 14:29] LABS: Scan Indicated on CBC? Y/N NO
[2019-04-26 14:40] LABS: Anion Gap 7 (5-15); BUN 33 mg/dL (7-18); BUN/Creat Ratio 17.9 RATIO (10-20); Calcium,Total 10.6 mg/dL (8.5-10.1); Chloride 107 mmol/L (98-107); Creatinine, Serum 1.84 mg/dL (0.55-1.02); EST Glomerular Filtration Rate 29 mL/min (>60); Est Glom Filt Rate - Afr Amer 35 mL/min (>60); Glucose 141 mg/dL (74-106); Potassium 4.5 mmol/L (3.5-5.1); Sodium Level 142 mmol/L (136-145)
== END | disposition home or self-care (01) ==
LOC: MEDOUTP 13:49
PROVIDERS: Family Provider Internal Medicine; PCP Internal Medicine; Referring Provider Internal Medicine Infectious Disease; Visit Provider Internal Medicine Infectious Disease
DX: J85.2 Abscess of lung without pneumonia (principal); N18.9 Chronic kidney disease, unspecified
CPT/HCPCS: 36592; 80048; 85027

== ENCOUNTER → 2019-04-27 | Outpatient (CLI) | payer MEDICARE, OTHER, SELFPAY ==
--- NOTE | 2019-04-27 11:18 | RAD_ITS ---
STUDY: X-RAY CHEST REASON FOR EXAM: Female, 68 years old. History of lung abscess. TECHNIQUE: PA and lateral views of the chest. COMPARISON: Comparison is made with prior study dated March 24, 2019. FINDINGS: A right-sided PICC line catheter is seen with the tip at the junction of the superior vena cava and right atrium. The previously seen cystic nodular density in the left upper lobe has markedly improved. Minimal residual changes persist most likely representing post abscess scarring. Stable increased markings at the left lung base suggestive of persistent atelectasis and/or scarring. The previously seen subtle infiltrate in the right upper lobe has resolved. There is mild cardiac enlargement. Normal mediastinum and arthur. Normal visualized pulmonary arteries. There is atherosclerotic calcification of the aortic arch with tortuosity. There is a dextroscoliosis of the thoracic spine. Normal visualized ribs, clavicles, and shoulders. There is no demonstrated abnormality of the visualized soft tissue structures of the upper abdomen. RAD/Chest PA and Lateral IMPRESSION: Interval resolution of the cystic nodule in the left upper lobe with resultant scarring. The remainder the examination is unchanged. A PICC line catheter is once again seen. Electronically Signed: Anam Larios, at 15:44 EDT , Service support ,
== END | disposition home or self-care (01) ==
LOC: MTRAD 11:16
PROVIDERS: Family Provider Internal Medicine; PCP Internal Medicine; Referring Provider Internal Medicine Infectious Disease; Visit Provider Internal Medicine Infectious Disease
DX: J85.2 Abscess of lung without pneumonia (principal)
CPT/HCPCS: 71046

== ENCOUNTER → 2019-04-29 | Outpatient (CLI) | payer MEDICARE, OTHER, SELFPAY | END | disposition home or self-care (01) | LOC: MEDOUTP 11:22 | PROVIDERS: Family Provider Internal Medicine; PCP Internal Medicine; Referring Provider Internal Medicine Infectious Disease; Visit Provider Internal Medicine Infectious Disease | DX: J85.2 Abscess of lung without pneumonia (principal) ==

== ENCOUNTER → 2019-06-03 | Outpatient (CLI) | payer MEDICARE, OTHER, SELFPAY ==
--- NOTE | 2019-06-03 12:22 | RAD_ITS ---
STUDY: X-RAY CHEST REASON FOR EXAM: Female, 68 years old. Cough and dyspnea. History of a lung abscess. TECHNIQUE: PA and lateral views of the chest. COMPARISON: Comparison is made with prior study dated April 27, 2019. FINDINGS: The previously seen right-sided PICC line catheter has been removed. Stable mild increased markings in the left upper lobe suggestive of scarring. Scattered calcified granulomas. Stable pleural parenchymal changes at the left lung base. Normal size heart. There are calcified mediastinal lymph nodes. Normal visualized pulmonary arteries. Normal visualized aortic arch and descending thoracic aorta. There are diffuse degenerative changes of the visualized thoracic spine. Dextroscoliosis. Normal visualized ribs, clavicles, and shoulders. There is no demonstrated abnormality of the visualized soft tissue structures of the upper abdomen. RAD/Chest PA and Lateral IMPRESSION: Stable examination. Electronically Signed: Anam Larios, at 13:15 EDT , Service support ,
== END | disposition home or self-care (01) ==
LOC: MTRAD 12:18
PROVIDERS: Family Provider Internal Medicine; PCP Internal Medicine; Referring Provider Internal Medicine; Visit Provider Internal Medicine
DX: R05 Cough (principal)
CPT/HCPCS: 71046

== ENCOUNTER → 2019-06-09 | Outpatient (CLI) | payer MEDICARE, OTHER, SELFPAY ==
--- NOTE | 2019-06-09 15:18 | BI_ITS ---
MAMMOGRAPHY - BILATERAL SCREENING REASON FOR EXAM: Female, 68 years old. Routine annual screening examination. PERTINENT HISTORY: Non-contributory. TECHNIQUE: Digital bilateral breast luis (3D mammographic acquisition) in the CC and MLO projections. 2-D mediolateral oblique (MLO) and craniocaudad (CC) views of both breasts were obtained. CAD: Full Field Digital Mammography with Computer Added Detection was performed. COMPARISON: Comparison is made with prior study dated May 20, 2018 and May 12, 2017. FINDINGS: Breast Composition: The breasts are almost entirely fatty. There are no dominant masses or suspicious calcifications. Stable fat-containing bilateral axillary lymph nodes. No other significant abnormalities are identified. There has been no significant change since the prior study. BI/SCREEN MAMM (CAD) W/LUIS BILAT IMPRESSION: Stable bilateral screening mammogram. Yearly follow-up mammogram recommended. (A) ASSESSMENT CATEGORY: BIRADS Category 2: Benign. A letter regarding these results will be sent to the patient by the facility within 30 days. Approximately 10% of breast cancers are not detected by mammography. A normal mammogram should not delay biopsy of a clinically suspicious abnormality. [id number] Electronically Signed: Anam Larios, at 8:48 EDT , Service support ,
--- NOTE | 2019-06-09 15:25 | BD_ITS ---
STUDY: DUAL ENERGY X-RAY ABSORPTIOMETRY / DXA REASON FOR EXAM: Female, 68 years old. The patient is postmenopausal. Loss of height. TECHNIQUE: Bone Mineral Density (BMD) measurements of lumbar spine and bilateral hips were obtained. COMPARISON: Comparison is made with prior study dated May 12, 2017. FINDINGS: Lumbar Spine (L1-L4): g/cm2 (1.010) / T-score (-1.3) / Z-score (0.3) Findings are suggestive of osteopenia with a low fracture risk. Left Femur Total: g/cm2 (0.957) / T-score (-0.4) / Z-score (1.0) Left Femoral Neck: g/cm2 (0.758) / T-score (-2.0) / Z-score (-0.4) Right Femur Total: g/cm2 (0.898) / T-score (-0.9) / Z-score (0.5) Right Femoral Neck: g/cm2 (0.852) / T-score (-1.3) / Z-score (0.3) The T-Scores on the most recent prior examination were: Lumbar Spine (L1-L4): There has been worsening of bone density since the previous examination. Left Femur Total: which represents a worsening of 4.6%. Right Femur Total: which represents a worsening of 4%. BD/Dexa Bone Density Study IMPRESSION: The patient is considered osteopenic as outlined below according to World Gerem[employer] Organization (WHO) criteria with a moderate fracture risk. There has been worsening of bone density since the previous examination. Reference Information: The T-score is the number of standard deviations above or below the standard which is normal for young adults at their peak bone mineral density. The World Health Organization (WHO) interprets the T-scores as follows: Above -1 Normal bone density Between -1 and -2.5 Osteopenia Equal to / or below -2.5 Osteoporosis As a practical clinical guideline, osteopenia may be graded as follows: Mild -1 through -1.5 Moderate -1.6 through -2.0 Severe -2.1 through -2.4 The Z-score is the number of standard deviations above or below age-matched controls. A Z-score of less than -1.5 would be considered abnormal. References: 1. NIH Osteoporosis and Related Bone Diseases http://www.osteo.org 2. International Society for Clinical Densitometry http://www.iscd.org 3. National Osteoporosis Foundation http://www.nof.org Electronically Signed: Anam Larios, at 12:56 EDT , Service support ,
== END | disposition home or self-care (01) ==
PROVIDERS: Family Provider Internal Medicine; PCP Internal Medicine; Referring Provider Internal Medicine; Visit Provider Internal Medicine
DX: Z12.31 Encounter for screening mammogram for malignant neoplasm of breast (principal); Z78.0 Asymptomatic menopausal state
CPT/HCPCS: 77063; 77067; 77080

== ENCOUNTER → 2019-08-22 10:06 | Outpatient (CLI) | payer MEDICARE, OTHER, SELFPAY ==
--- NOTE | 2019-08-22 10:11 | RAD_ITS ---
STUDY: X-RAY CHEST REASON FOR EXAM: Female, 68 years old. HX ABCESS LUNG, COUGH TECHNIQUE: PA and lateral views of the chest. COMPARISON: June 03, 2019 FINDINGS: Heart size is moderately enlarged, stable. There remain multiple calcified granuloma most evident in the mediastinum but also calcified granuloma in the right lower lobe noted. There persists a small focal scar in the left lung apex extending to the pleura. The lungs are otherwise clear. Degenerative spondylosis of the spine is noted with S-shaped scoliotic deformity. There are multilevel marginal osteophytes. There is no demonstrated abnormality of the visualized soft tissue structures of the upper abdomen. RAD/Chest PA and Lateral IMPRESSION: No significant interval change in the radiographic appearance the chest. There is evidence of granulomatous disease exposure. Electronically Signed: Karly Adams MD at 13:22 EDT , Service support ,
== END ==
PROVIDERS: Family Provider Internal Medicine; PCP Internal Medicine; Referring Provider Internal Medicine; Visit Provider Internal Medicine
DX: R05 Cough (principal)
CPT/HCPCS: 71046

== ENCOUNTER → 2019-10-03 12:38 | Outpatient (CLI) | payer MEDICARE, OTHER, SELFPAY ==
[2019-10-03 14:14] LABS: Hematocrit 40.4 % (37-47); Hemoglobin 12.6 g/dL (12.0-15.0); Mean Corp Hgb Conc 31.2 g/dL (32-36); Mean Corpuscular Hgb 29.2 pg (27.0-32.0); Mean Corpuscular Volume 93.7 fL (81-99); Mean Platelet Vol. 9.6 fl (6.2-12.0); Platelet Count 282 K/mm3 (150-450); RBC Distribution Width SD 48.2 fl (35.1-43.9); Red Blood Count 4.31 M/mm3 (4.2-5.4); White Blood Count 9.3 K/mm3 (4.4-11.0)
[2019-10-03 14:33] LABS: PTHIN 34.1 pg/mL (18.4-80.1); Vitamin D,25 Hydroxy 50.9 ng/mL (29.95-100.01)
[2019-10-03 14:40] LABS: Albumin, Serum 3.7 g/dL (3.2-5.0); BUN 30 mg/dL (7-18); BUN/Creat Ratio 18.5 RATIO (10-20); Calcium,Total 10.3 mg/dL (8.5-10.1); Chloride 106 mmol/L (98-107); Creatinine, Serum 1.62 mg/dL (0.55-1.02); EST Glomerular Filtration Rate 34 mL/min (>60); Est Glom Filt Rate - Afr Amer 41 mL/min (>60); Glucose 120 mg/dL (74-106); Magnesium 1.8 mg/dL (1.6-2.6); Phosphorus 2.9 mg/dL (2.5-4.9); Sodium Level 140 mmol/L (136-145); Uric Acid 4.1 mg/dL (2.6-6.0)
[2019-10-03 14:46] LABS: Microalbumin,Random Urine < 5.0 mg/L (NO RANGE EST.)
== END ==
PROVIDERS: Family Provider Internal Medicine; PCP Internal Medicine; Referring Provider Internal Medicine Nephrology; Visit Provider Internal Medicine Nephrology
DX: E55.9 Vitamin D deficiency, unspecified (principal); E83.52 Hypercalcemia; N18.4 Chronic kidney disease, stage 4 (severe); E83.42 Hypomagnesemia; D63.1 Anemia in chronic kidney disease; M10.9 Gout, unspecified
CPT/HCPCS: 36415; 80069; 82043; 82306; 82570; 83735; 83970; 84550; 85027

== ENCOUNTER → 2019-11-10 13:34 | Outpatient (CLI) | payer MEDICARE, OTHER, SELFPAY ==
--- NOTE | 2019-11-10 13:40 | RAD_ITS ---
STUDY: X-RAY CHEST REASON FOR EXAM: Female, 68 years old. One-week history of cough and left-sided chest pain. TECHNIQUE: PA and lateral views of the chest. COMPARISON: Comparison is made with prior examination dated August 22, 2019. FINDINGS: Pectus excavatum deformity. Stable scarring in the left upper lobe as well as in the lingula segment of the left upper lobe. Blunting of the left costophrenic angle. Scattered calcified granulomas. There is mild cardiac enlargement. Normal mediastinum and arthur. Normal visualized pulmonary arteries. There is atherosclerotic calcification of the aortic arch with tortuosity. There are diffuse degenerative changes of the visualized thoracic spine. Dextroscoliosis. There is degenerative osteoarthritis of the bilateral shoulders. There is no demonstrated abnormality of the visualized soft tissue structures of the upper abdomen. RAD/Chest PA and Lateral IMPRESSION: Stable examination with evidence of a chronic scarring in the lingular segment of the left upper lobe as well as focal scarring in the apical segment of the left upper lobe. Electronically Signed: Anam Larios, at 14:13 EST , Service support ,
== END ==
PROVIDERS: Family Provider Internal Medicine; PCP Internal Medicine; Referring Provider Internal Medicine; Visit Provider Internal Medicine
DX: R05 Cough (principal)
CPT/HCPCS: 71046

== ENCOUNTER → 2019-11-18 11:24 | Outpatient (CLI) | payer MEDICARE, OTHER, SELFPAY | PROVIDERS: Family Provider Internal Medicine; PCP Internal Medicine; Referring Provider Internal Medicine Pulmonary Disease; Visit Provider Internal Medicine Pulmonary Disease | DX: J45.909 Unspecified asthma, uncomplicated (principal) | CPT/HCPCS: 87070; 87106; 87205 ==

== ENCOUNTER 2019-11-30 20:32 | Emergency (ER) | payer MEDICARE, OTHER, SELFPAY ==
[2019-11-30 20:34] VITALS: BP 158/74; PULSE 78; RESP 17; TEMP 36.1; O2SAT 95; BMI 40.9
--- NOTE | 2019-11-30 23:00 | ED.DCSUM_ITS ---
- ER Visit Summary Date of Service: 11/30/19 Chief Complaint: Laceration History of Present Illness: The patient is a 69 F who cut her left thumb with a knife. Tetanus is up-to-date. Physical Examination: Patient has a V-shaped incision adjacent to her left thumb nail. Nail is intact. Test Results: None performed Emergency Department Course and Treatment: Wound was cleaned thoroughly. Closed with tissue adhesive. Patient tolerated this well. Wound care instructions given. Prophylaxis with doxycycline. Follow-up with primary care for recheck. Return for new or worsening issues like signs of infection right away. Treatment Plan: As above Disposition: Discharge Impression: 1. Left thumb laceration 1 cm This note was generated with [employer] dictation software. It may contain incorrect words, spelling, and punctuation that were not noted in review of the chart prior to signing ED Disposition - Plan for ED Patient: Referrals: Veronica Oquendo DO [Primary Care Provider] -
--- NOTE | 2019-11-30 23:03 | ED.DEP ---
ED Disposition - Plan for ED Patient: Instructions: LACERATION, Hand Prescriptions: Doxycycline 100 mg PO BID 3 Days #6 cap Prescription Printed Referrals: Veronica Oquendo DO [Primary Care Provider] -
[2019-11-30] MEDS: Doxycycline 100 MG CAPSULE PO (23:29)
[2019-11-30 23:32] VITALS: BP 133/74; PULSE 81; RESP 16; O2SAT 99
--- NOTE | 2019-11-30 23:33 | ED.RN ---
wound soaked, irrigated and dermabonded by Dr Bartlett. clean dry dressing applied by RN. Wound care reviewed with patient.
== END 2019-11-30 23:34 | disposition home or self-care (01) ==
PROVIDERS: Emergency Provider Emergency Medicine; Family Provider Internal Medicine; PCP Internal Medicine
DX: S61.012A Laceration without foreign body of left thumb without damage to nail, initial encounter (principal); W26.0XXA Contact with knife, initial encounter; Y93.9 Activity, unspecified; Y92.9 Unspecified place or not applicable
CPT/HCPCS: 12001; 99283

== ENCOUNTER → 2019-12-02 12:52 | Outpatient (CLI) | payer MEDICARE, OTHER, SELFPAY ==
[2019-11-30 20:34] VITALS: BMI 40.9
--- NOTE | 2019-12-02 12:57 | RAD_ITS ---
STUDY: X-RAY CHEST REASON FOR EXAM: Female, 69 years old. Cough. TECHNIQUE: Frontal and lateral views of the chest. COMPARISON: November 10, 2019 FINDINGS: Hyperexpansion with diffuse interstitial pattern. Stable healed granulomatous calcifications. Pleural thickening on the left unchanged. Cardiomegaly unchanged. Mediastinal and hilar calcified lymph nodes unchanged. Normal visualized pulmonary arteries. Aortic tortuosity unchanged. Stable thoracolumbar spondylosis. Normal visualized ribs, clavicles, and shoulders. There is no demonstrated abnormality of the visualized soft tissue structures of the upper abdomen. RAD/Chest PA and Lateral IMPRESSION: Stable chest with no acute superimposed finding. Electronically Signed: Jessee Moss MD at 13:09 EST , Service support ,
== END ==
PROVIDERS: Family Provider Internal Medicine; PCP Internal Medicine; Referring Provider Internal Medicine Pulmonary Disease; Visit Provider Internal Medicine Pulmonary Disease
DX: R05 Cough (principal)
CPT/HCPCS: 71046

== ENCOUNTER → 2019-12-09 10:30 | Outpatient (CLI) | payer MEDICARE, OTHER, SELFPAY ==
[2019-11-30 20:34] VITALS: BMI 40.9
== END ==
PROVIDERS: Family Provider Internal Medicine; PCP Internal Medicine; Referring Provider Otolaryngology; Visit Provider Otolaryngology
DX: J01.90 Acute sinusitis, unspecified (principal)
CPT/HCPCS: 87070; 87077; 87186

== ENCOUNTER → 2020-02-13 11:27 | Outpatient (CLI) | payer MEDICARE, OTHER, SELFPAY ==
--- NOTE | 2020-02-13 11:32 | RAD_ITS ---
STUDY: X-RAY CHEST REASON FOR EXAM: Female, 69 years old. SOB AT REST TECHNIQUE: PA and lateral views of the chest. COMPARISON: Comparison is made with prior study dated December 02, 2019. FINDINGS: Scattered calcified granulomas. Stable mild increased markings at the lung bases worse on the left side suggestive of scarring. Stable mild scarring in the left upper lobe. There is blunting of the left costo phrenic angle. There is moderate cardiac enlargement. There are calcified mediastinal lymph nodes. Normal visualized pulmonary arteries. There is atherosclerotic calcification of the aortic arch with tortuosity. There is a dextroscoliosis of the thoracic spine. Normal visualized ribs, clavicles, and shoulders. There is no demonstrated abnormality of the visualized soft tissue structures of the upper abdomen. RAD/Chest PA and Lateral IMPRESSION: Stable examination with evidence of a bibasilar scarring more prominent on the left side. Stable calcified granulomas as well as mediastinal and hilar lymph nodes. Electronically Signed: Anam Larios, at 11:55 EDT , Service support ,
== END ==
PROVIDERS: PCP Internal Medicine; Referring Provider Internal Medicine; Visit Provider Internal Medicine
DX: R06.02 Shortness of breath (principal)
CPT/HCPCS: 71046

== ENCOUNTER → 2020-04-03 08:23 | Outpatient (CLI) | payer MEDICARE, OTHER, SELFPAY ==
[2020-04-03 09:51] LABS: Hematocrit 39.4 % (37-47); Hemoglobin 12.5 g/dL (12.0-15.0); Mean Corp Hgb Conc 31.7 g/dL (32-36); Mean Corpuscular Hgb 29.3 pg (27.0-32.0); Mean Corpuscular Volume 92.5 fL (81-99); Platelet Count 300 K/mm3 (150-450); RBC Distribution Width CV 14.4 % (11.6-14.6); RBC Distribution Width SD 48.8 fl (35.1-43.9); Red Blood Count 4.26 M/mm3 (4.2-5.4); White Blood Count 11.7 K/mm3 (4.4-11.0)
[2020-04-03 10:02] LABS: PTHIN 61.2 pg/mL (18.4-80.1)
[2020-04-03 10:06] LABS: Vitamin D,25 Hydroxy 55.1 ng/mL
[2020-04-03 10:08] LABS: ALB/GLOB Ratio 1.3 RATIO (0.9-2.4); AST(SGOT) 14 U/L (15-37); Alanine Aminotransfer ALT/SGPT 27 U/L (13-56); Albumin, Serum 3.8 g/dL (3.2-5.0); Alkaline Phosphatase 39 U/L (45-117); Anion Gap 3 (5-15); BUN 48 mg/dL (7-18); BUN/Creat Ratio 29.1 RATIO (10-20); Bilirubin, Direct 0.16 mg/dL (0.00-0.30); Calcium,Total 9.9 mg/dL (8.5-10.1); Chloride 110 mmol/L (98-107); Cholesterol 114 mg/dL (200); Creatinine, Serum 1.65 mg/dL (0.55-1.02); EST Glomerular Filtration Rate 33 mL/min (>60); Est Glom Filt Rate - Afr Amer 40 mL/min (>60); Globulin 2.9 g/dL (2.2-4.2); Glucose 89 mg/dL (74-106); High Density Lipoprotein 40 mg/dL; Magnesium 1.8 mg/dL (1.6-2.6); Phosphorus 3.3 mg/dL (2.5-4.9); Potassium 4.2 mmol/L (3.5-5.1); Protein, Total 6.7 g/dL (6.4-8.2); Sodium Level 140 mmol/L (136-145); Triglycerides 160 mg/dL; Very Low Density Lipoprotein 32 mg/dL (5-40)
[2020-04-03 10:18] LABS: Microalbumin,Random Urine 19.6 mg/L (NO RANGE EST.)
--- NOTE | 2020-04-03 15:27 | RAD_ITS ---
STUDY: X-RAY CHEST REASON FOR EXAM: Female, 69 years old. Dyspnea, asthma TECHNIQUE: PA and lateral views of the chest. COMPARISON: Comparison is made with prior study dated February 13, 2020. FINDINGS: Hyperinflation. Stable pleural-parenchymal changes at the left lung base. Stable scarring in the right lower lobe as well as the upper lobes bilaterally. There is moderate cardiac enlargement. There are calcified mediastinal lymph nodes. Normal visualized pulmonary arteries. There is atherosclerotic calcification of the aortic arch with tortuosity. There are diffuse degenerative changes of the visualized thoracic spine. Dextroscoliosis. Normal visualized ribs, clavicles, and shoulders. There is no demonstrated abnormality of the visualized soft tissue structures of the upper abdomen. RAD/Chest PA and Lateral IMPRESSION: Stable examination. No acute abnormality is seen. Electronically Signed: Anam Larios, at 15:52 EDT , Service support ,
== END ==
PROVIDERS: PCP Internal Medicine; Referring Provider Internal Medicine; Visit Provider Internal Medicine
DX: N18.4 Chronic kidney disease, stage 4 (severe) (principal); E78.00 Pure hypercholesterolemia, unspecified; E55.9 Vitamin D deficiency, unspecified; E83.42 Hypomagnesemia; D63.1 Anemia in chronic kidney disease; J45.909 Unspecified asthma, uncomplicated; R06.00 Dyspnea, unspecified
CPT/HCPCS: 36415; 71046; 80053; 80061; 82043; 82248; 82306; 82570; 83735; 83970; 84100; 85027

== ENCOUNTER → 2020-04-06 13:04 | Outpatient (CLI) | payer MEDICARE, OTHER, SELFPAY ==
--- NOTE | 2020-04-06 13:09 | CT_ITS ---
STUDY: CT CHEST WITHOUT CONTRAST REASON FOR EXAM: Female, 69 years old. DYSPNEA X 2 MONTHS RADIATION DOSAGE (If Supplied By Facility): CTDIvol = ( 19.31 ) mGy, DLP = ( 685.05 ) mGycm TECHNIQUE: Transaxial imaging was performed without the administration of intravenous contrast material. Multiplanar coronal and sagittal images were reformatted. Individualized dose optimization techniques were used for this CT. COMPARISON: Comparison is made with prior examination February 28, 2019. FINDINGS: Stable focal coarse calcifications in the right lobe of the thyroid. Stable small bilateral benign-appearing axillary lymph nodes. Increased linear markings in the upper lobes more prominent on the left side suggestive of a scarring. This as improved as compared to prior study. The previously seen thick walled cystic structure in the left upper lobe as resolved. Minimal residual changes persist. There is residual 2 cm x 1.5 cm pleural-based nodule in the peripheral lateral aspect of the left lower lobe. This has decreased in size as compared to prior study. Once again, there is evidence of a scattered bilateral calcified granulomas. There is no demonstrated pleural abnormality. There are calcifications of the coronary arteries. Calcified mediastinal as well as bilateral hilar lymph nodes. Normal unenhanced pulmonary arteries. There is atherosclerotic calcification of the aortic arch with tortuosity and elongation of the aortic arch and descending thoracic aorta. There are multi-level degenerative changes of the thoracic spine. There is no demonstrated abnormality of the visualized upper abdomen. CT/Chest without Contrast IMPRESSION: The previously seen thick-walled cystic structure in the left upper lobe has cleared. There is persistent increased markings in the left upper lobe at that site suggestive of scarring. Interval decrease in size of the pleural-based density in the left lower lobe presently measuring 2 signs by 1.5 cm. Stable calcified mediastinal and hilar lymph nodes. Electronically Signed: Anam Larios, at 13:58 EDT , Service support ,
== END ==
PROVIDERS: PCP Internal Medicine; Referring Provider Internal Medicine Pulmonary Disease; Visit Provider Internal Medicine Pulmonary Disease
DX: R06.00 Dyspnea, unspecified (principal); J45.909 Unspecified asthma, uncomplicated; I27.20 Pulmonary hypertension, unspecified
CPT/HCPCS: 71250; Q9967

== ENCOUNTER → 2020-04-11 07:45 | Outpatient (CLI) | payer MEDICARE, OTHER, SELFPAY ==
--- NOTE | 2020-04-11 07:50 | ECHOD_ITS ---
Reason For Study: DYSPNEA Procedure This was a 2D Doppler, Color Flow transthoracic echocardiogram. Exam performed in department. Left Ventricle Normal LV size. Left ventricular systolic function is normal. The estimated ejection fraction is 60 %. Stage 1 diastolic dysfunction. No regional wall motion abnormalities noted. Right Ventricle Normal RV size. Normal systolic function. Atria Normal left atrium. Normal right atrium. Mitral Valve Normal mitral valve. Tricuspid Valve Normal tricuspid valve. Mild (1+) tricuspid valve insufficiency. Pulmonary artery systolic pressure is 38 mmHg. Aortic Valve Trisinus/trileaflet aortic valve. Pulmonic Valve Normal pulmonic valve. Great Vessels Normal aortic root. The pulmonary artery is normal size. Normal inferior vena cava. Pericardium/Pleural No pericardial effusion. MMode/2D Measurements & Calculations LVIDd: 5.6 cm IVSd: 1.2 cm Ao root diam: 2.9 cm LVIDs: 3.6 cm LVPWd: 1.1 cm RVDd: 3.4 cm FS: 36.0 % LAV(MOD-bp): 56.8 ml LA A4 area: 19.2 cm2 LA dimension(2D): 4.2 cm LAV(MOD-bp) Indexed: 30.4 ml/m2 LAV(MOD-sp2): 55.3 ml LAV(MOD-sp4): 55.1 ml RA A4 area: 18.7 cm2 Time Measurements MV dec time: 0.18 sec Doppler Measurements & Calculations MV E max kam: 83.7 cm/sec Lat Peak E' Kam: 5.9 cm/sec Med Peak E' Kam: 6.3 cm/sec MV A max kam: 96.1 cm/sec E/E' lat: 14.1 E/E' med: 13.4 MV E/A: 0.87 Ao V2 max: 167.2 cm/sec LV V1 max: 107.9 cm/sec PA V2 max: 110.6 cm/sec Ao max P.2 mmHg LV V1 max P.7 mmHg TR max kam: 292.8 cm/sec TR max P.3 mmHg Interpretation Summary Normal LV size. Left ventricular systolic function is normal. The estimated ejection fraction is 60 %. Stage 1 diastolic dysfunction. Pulmonary artery systolic pressure is 38 mmHg. Ordering Physician: Octavio Delgado Referring Physician: Veronica Oquendo Performed By: Tana Verma, DEA, RVT
== END ==
PROVIDERS: PCP Internal Medicine; Referring Provider Internal Medicine Pulmonary Disease; Visit Provider Internal Medicine Pulmonary Disease
DX: R06.00 Dyspnea, unspecified (principal)
CPT/HCPCS: 93306

== ENCOUNTER 2020-04-16 11:14 | Inpatient (IN) | payer MEDICARE, OTHER, SELFPAY ==
[2020-04-16] VITALS (12 sets, daily range): BP systolic 104–136; BP diastolic 46–98; PULSE 73–140; RESP 10–20; TEMP 36.1–36.7; O2SAT 96–99; BMI 38.8; BMI 39.2; BMI 39.3
--- NOTE | 2020-04-16 11:53 | RAD_ITS ---
STUDY: X-RAY CHEST REASON FOR EXAM: Female, 69 years old. CP, SOB ACUTE ON-SET. HX A-FIB TECHNIQUE: Single AP portable view of the chest. COMPARISON: 04/14/2020 FINDINGS: Hyperinflation. Stable pleural-parenchymal changes at the left lung base. Stable scarring in the right lower lobe as well as the upper lobes bilaterally. There is moderate cardiac enlargement. There are calcified mediastinal lymph nodes. Normal visualized pulmonary arteries. There is atherosclerotic calcification of the aortic arch with tortuosity. There are diffuse degenerative changes and dextroscoliosis of the visualized thoracic spine. Dextroscoliosis. Normal visualized ribs, clavicles, and shoulders. There is no demonstrated abnormality of the visualized soft tissue structures of the upper abdomen. RAD/Chest 1 View (Portable) IMPRESSION: Degenerative changes, as described above. No demonstrated acute cardiopulmonary process. No acute abnormality is seen. Electronically Signed: Royce Phipps, at 12:55 EDT Tel , Service support ,
--- NOTE | 2020-04-16 11:54 | EKG12_ITS ---
Test Reason : CP Blood Pressure : / mmHG Vent. Rate : 134 BPM Atrial Rate : 115 BPM P-R Int : 000 ms QRS Dur : 124 ms QT Int : 382 ms P-R-T Axes : 000 118 014 degrees QTc Int : 570 ms Atrial fibrillation with right bundle branch block Right bundle branch block Septal infarct , age undetermined T wave abnormality, consider inferior ischemia Abnormal ECG Confirmed by IRA FELIX, KEREN ([id number]), deputy editor in chief YAEL LOPEZ ([id number]) on 04/17/2020 3:42:45 PM Referred By: SPEEDY Confirmed By:KEREN ROTH MD
[2020-04-16 12:24] LABS: Absolute Lymphocyte Count 1.41 X10^3/uL (0.83-4.51); Absolute Neutrophil Count 14.5 X10^3/uL (2.0-7.7); Basophil# 0.17 X10^3/uL; Basophil% 0.9 % (0-1); Eosinophil# 0.22 X10^3/uL; Eosinophils% 1.2 % (0-5); Hematocrit 44.8 % (37-47); Hemoglobin 14.2 g/dL (12.0-15.0); Lymphocyte # 1.41 X10^3/ul (4.0); Lymphocyte % 7.5 % (19-41); Mean Corp Hgb Conc 31.7 g/dL (32-36); Mean Corpuscular Hgb 29.2 pg (27.0-32.0); Mean Platelet Vol. 10.1 fl (6.2-12.0); Monocyte# 1.69 X10^3/uL; NRBC Flagged by Analyzer 0 % (0-5); Neutrophil # 14.46 X10^3/uL (2.7-7.7); Neutrophil % 76.8 % (47-70); POSITIVE DIFFERENTIAL YES; Platelet Count 349 K/mm3 (150-450); RBC Distribution Width CV 14.5 % (11.6-14.6); RBC Distribution Width SD 48.5 fl (35.1-43.9); Red Blood Count 4.87 M/mm3 (4.2-5.4); White Blood Count 18.8 K/mm3 (4.4-11.0)
[2020-04-16 12:25] LABS: Differential Indicated SCAN CRITERIA MET
[2020-04-16 12:31] LABS: Partial Thromboplast Time 24.2 Seconds (24.1-36.2); Prothrombin Time (Protime)PT. 12.7 SECONDS (11.7-14.9)
[2020-04-16] MEDS: 0.9% Normal Saline 1,000 ML 150 ML IV ×2 (12:32→18:13)
[2020-04-16] MEDS: dilTIAZem 25 MG/5 ML Vial 10 MG IV BOLUS (12:33)
[2020-04-16 12:38] LABS: ALB/GLOB Ratio 1.1 RATIO (0.9-2.4); AST(SGOT) 12 U/L (15-37); Alanine Aminotransfer ALT/SGPT 30 U/L (13-56); Albumin, Serum 3.6 g/dL (3.2-5.0); Alkaline Phosphatase 44 U/L (45-117); Anion Gap 5 (5-15); BUN 44 mg/dL (7-18); BUN/Creat Ratio 22.7 RATIO (10-20); Chloride 108 mmol/L (98-107); Creatinine, Serum 1.94 mg/dL (0.55-1.02); EST Glomerular Filtration Rate 27 mL/min (>60); Est Glom Filt Rate - Afr Amer 33 mL/min (>60); Estimated Creatinine Clearance 19.66 ml/min; Globulin 3.2 g/dL (2.2-4.2); Glucose 199 mg/dL (74-106); Magnesium 1.9 mg/dL (1.6-2.6); Potassium 4.9 mmol/L (3.5-5.1); Protein, Total 6.8 g/dL (6.4-8.2); Sodium Level 138 mmol/L (136-145)
[2020-04-16 12:44] LABS: BNP,B-Type NATRIURETIC PEPTIDE 206.4 pg/mL (0-100)
--- NOTE | 2020-04-16 13:01 | CT_ITS ---
STUDY: CT CHEST WITHOUT CONTRAST REASON FOR EXAM: Female, 69 years old. CHEST PAIN,SHORT OF BREATH,COLD,CLAMMY,WEAKNESS -- HX-COPD, former smoker, sarcoidosis, lung abscess,stage 4 ckd RADIATION DOSAGE (If Supplied By Facility): CTDIvol = ( 20.38 ) mGy, DLP = ( 607.73 ) mGycm TECHNIQUE: Transaxial imaging was performed without the administration of intravenous contrast material. Individualized dose optimization techniques were used for this CT. COMPARISON: 02/28/2019 FINDINGS: Linear opacities are seen in the left lung upper lobe, left lingular lobe and in the right lower lobe consistent with scarring from old lesions. There is an irregular opacity in the left lung base extending to the pleural surface consistent with vascular malformation is stable since the previous study. Ill-defined groundglass opacities are seen in the anterior segment of the right lung upper lobe suggesting early pneumonia. There is no demonstrated pleural abnormality. Normal heart and pericardium. Normal mediastinum. Normal hilar regions. Normal unenhanced pulmonary arteries. There is atherosclerotic tortuosity of the aortic arch and descending thoracic aorta. There are multi-level degenerative changes of the thoracic spine. There is no demonstrated abnormality of the visualized upper abdomen. CT/Chest without Contrast IMPRESSION: Ill-defined groundglass opacities are seen in the anterior segment of the right lung upper lobe suggesting early pneumonia. Electronically Signed: Royce Phipps, at 14:06 EDT Tel , Service support ,
--- NOTE | 2020-04-16 13:01 | EKG12_ITS ---
Test Reason : REPEAT Blood Pressure : / mmHG Vent. Rate : 076 BPM Atrial Rate : 076 BPM P-R Int : 156 ms QRS Dur : 130 ms QT Int : 390 ms P-R-T Axes : 068 114 056 degrees QTc Int : 438 ms Normal sinus rhythm Right bundle branch block Septal infarct , age undetermined Abnormal ECG Confirmed by IRA FELIX, KEREN ([id number]), assistant film editor YAEL LOPEZ ([id number]) on 04/17/2020 3:44:09 PM Referred By: MIKY Confirmed By:KEREN ROTH MD
--- NOTE | 2020-04-16 13:09 | ED.DCSUM_ITS ---
History of Present Illness Chief Complaint: Chest Pain Informant: Patient Onset: Today Narrative: Patient states that when she got up today she felt dyspneic heart was pounding and was sweaty. She tried to do some exercises but had to stop. She went to her doctor and they advised her to come to emergency. She notes an indigestion- like feeling midsternal. She notes that simply walking into the emergency department in her doctor's office fatigues her. She states she has had a history of A. fib in the past. Patient has a history of type 2 diabetes, hypertension, hypercholesterolemia, COPD, chronic kidney disease, and a diagnosis of a lung abscess earlier this year. That was following a influenzal infection as well as Pseudomonas pneumonia. Patient has been following with Dr. Delgado for pulmonology. She has been referred to cardiology. She had a recent echocardiogram showed normal ejection fraction.. Past Medical History - Allergies and Home Meds Allergies/Adverse Reactions: Allergies clindamycin Allergy (Verified 04/16/20 11:15) Rash ciprofloxacin Adverse Reaction (Mild, Verified 04/16/20 11:15) Upset Stomach amoxicillin trihydrate [From Augmentin] Adverse Reaction (Verified 04/16/20 11:15) Nausea morphine Adverse Reaction (Verified 04/16/20 11:15) Nausea potassium clavulanate [From Augmentin] Adverse Reaction (Verified 04/16/20 11:15) Nausea Primary Care Physician: Veronica Oquendo DO [Primary Care Provider] - Surgical History: cholecystectomy, hysterectomy, total knee arthroplasty, - - Lumbar back surgery, foot surgery, Smoking Status: Former smoker - Family History Paternal Family History: Reports: Cancer - lung cancer Maternal Family History: Reports: COPD, Hypertension Sibling Family History: Reports: Diabetes Review of Systems General: Reports: Malaise. Denies: Chills, Fever, Sweats Eyes: Denies: Visual changes - bilaterally, Diplopia ENT: Denies: Rhinorrhea, Sore throat Cardiovascular: Reports: Chest pain, Palpitations, Heart racing Respiratory: Reports: Dyspnea on exertion. Denies: Dyspnea, Cough Gastrointestinal: Reports: Nausea. Denies: Abdominal pain, Vomiting, Diarrhea, Melena, Hematochezia Genitourinary: Denies: Dysuria, Hematuria, Frequency Musculoskeletal: Denies: Back pain, Extremity Pain Skin: Denies: Rash, Wounds Neurological: Denies: Headache, Weakness, Numbness Physical Exam Vital Signs/Narrative: Vital Signs Temp Pulse Resp BP Pulse Ox 04/16/20 13:03 77 17 117/58 L 99 04/16/20 12:15 130 H 20 H 104/58 L 98 04/16/20 11:28 138 H 16 104/67 98 04/16/20 11:15 97.4 F L 140 H 18 122/70 H 96 Inital Vital Signs reviewed: Yes General: Well nourished, Well developed, No Acute Distress Head: Normocephalic, Atraumatic Eyes: Perrl, EOMI ENT: Moist mucous membranes, No rhinorrhea Neck: Supple, Nontender Cardiovascular: No murmurs, Tachycardia Respiratory: No distress, CTA bilaterally, Chest nontender Abdomen: Soft, Nontender, Nondistended, Normal bowel sounds Back: Nontender, Normal Inspection Extremities: Nontender, No edema Skin: Normal color, No rash Neurological: Alert, Oriented x3, Cranial nerves II-XII grossly intact, Normal S trength, Normal Sensation Psychological: Normal affect, Normal Mood Diagnostic/Tx/Re-eval Clinical Impression(s) from Imaging Studies Chest X-Ray 04/16/20 11:53 IMPRESSION: Degenerative changes, as described above. No demonstrated acute cardiopulmonary process. No acute abnormality is seen. Electronically Signed: Royce Phipps, at 12:55 EDT Tel , Service support , Chest CT 04/16/20 13:01 IMPRESSION: Ill-defined groundglass opacities are seen in the anterior segment of the right lung upper lobe suggesting early pneumonia. Electronically Signed: Royce Phipps, at 14:06 EDT Tel , Service support , Laboratory Last Values WBC 18.8 K/mm3 (4.4-11.0) H 04/16/20 11:45 RBC 4.87 M/mm3 (4.2-5.4) 04/16/20 11:45 Hgb 14.2 g/dL (12.0-15.0) 04/16/20 11:45 Hct 44.8 % (37-47) 04/16/20 11:45 MCV 92.0 fL (81-99) 04/16/20 11:45 MCH 29.2 pg (27.0-32.0) 04/16/20 11:45 MCHC 31.7 g/dL (32-36) L 04/16/20 11:45 RDW Std Deviation 48.5 fl (35.1-43.9) H 04/16/20 11:45 RDW Coeff of Jazzmine 14.5 % (11.6-14.6) 04/16/20 11:45 Plt Count 349 K/mm3 (150-450) 04/16/20 11:45 MPV 10.1 fl (6.2-12.0) 04/16/20 11:45 Immature Gran % (Auto) 4.600 % (0.0-0.9) H 04/16/20 11:45 Neut % (Auto) 76.8 % (47-70) H 04/16/20 11:45 Lymph % (Auto) 7.5 % (19-41) L 04/16/20 11:45 [place] % (Auto) 9.0 % (0-10) 04/16/20 11:45 Eos % (Auto) 1.2 % (0-5) 04/16/20 11:45 Baso % (Auto) 0.9 % (0-1) 04/16/20 11:45 Absolute Neuts (auto) 14.5 X10^3/uL (2.0-7.7) H 04/16/20 11:45 Absolute Lymphs (auto) 1.41 X10^3/uL (0.83-4.51) 04/16/20 11:45 Nucleated RBC % 0 % (0-5) 04/16/20 11:45 Differential Comment COMMENT 04/16/20 11:45 Diff Path Review March04/16/20 11:45 PT 12.7 SECONDS (11.7-14.9) 04/16/20 11:45 INR 1.0 04/16/20 11:45 APTT 24.2 Seconds (24.1-36.2) 04/16/20 11:45 Sodium 138 mmol/L (136-145) 04/16/20 11:45 Potassium 4.9 mmol/L (3.5-5.1) 04/16/20 11:45 Chloride 108 mmol/L (98-107) H 04/16/20 11:45 Carbon Dioxide 25.0 mmol/L (21.0-32.0) 04/16/20 11:45 Anion Gap 5 (5-15) 04/16/20 11:45 BUN 44 mg/dL (7-18) H 04/16/20 11:45 Creatinine 1.94 mg/dL (0.55-1.02) H 04/16/20 11:45 Estim Creat Clear Calc 19.66 ml/min 04/16/20 11:45 Est GFR (MDRD) Af Amer 33 mL/min (>60) L 04/16/20 11:45 Est GFR (MDRD) Non-Af 27 mL/min (>60) L 04/16/20 11:45 BUN/Creatinine Ratio 22.7 RATIO (10-20) H 04/16/20 11:45 Glucose 199 mg/dL (74-106) H 04/16/20 11:45 Lactic Acid 1.1 mmol/L (0.4-1.9) 04/16/20 13:20 Calcium 10.0 mg/dL (8.5-10.1) 04/16/20 11:45 Magnesium 1.9 mg/dL (1.6-2.6) 04/16/20 11:45 Total Bilirubin 0.40 mg/dL (0.20-1.00) 04/16/20 11:45 AST 12 U/L (15-37) L 04/16/20 11:45 ALT 30 U/L (13-56) 04/16/20 11:45 Alkaline Phosphatase 44 U/L (45-117) L 04/16/20 11:45 Troponin I < 0.015 ng/mL (<0.045) 04/16/20 11:45 B-Natriuretic Peptide 206.4 pg/mL (0-100) H 04/16/20 11:45 Total Protein 6.8 g/dL (6.4-8.2) 04/16/20 11:45 Albumin 3.6 g/dL (3.2-5.0) 04/16/20 11:45 Globulin 3.2 g/dL (2.2-4.2) 04/16/20 11:45 Albumin/Globulin Ratio 1.1 RATIO (0.9-2.4) 04/16/20 11:45 - EKG Initial EKG Interpretation: - - Initial EKG demonstrates a wide uterus tachycardia that appears to be a right bundle branch block. I cannot tell definitively if there are P waves as there is too much artifact. I do not see evidence of ACS. Follow-up EKG Interpretation: Sinus Rhythm - Follow-up EKG demonstrates a normal sinus rhythm with right bundle branch block at a rate of 76. - Medical Decision Making She was placed on the monitor. She received 10 mg of IV Cardizem which resulted in a conversion to a normal sinus rhythm at a rate of 76 where she stayed. Patient tells me that she once had atrial fibrillation years ago after a prolonged back surgery but otherwise has not been treated for it. She recently had an echocardiogram showed normal EF with stage I diastolic dysfunction. White count is curiously elevated at 18. She has a cough with occasional sputum production but states is really not abnormal for her. Chest x-ray was negative. Otherwise basic blood work was okay including troponin and lactic acid. Electrolytes are within normal limits. CT of the chest was obtained given her complicated pulmonary history including lung abscess. This shows a possible ear ly infiltrate. Given what is most likely a new onset of atrial flutter and 18,000 white count I think is reasonable and we observe her overnight. She received a dose of Rocephin and azithromycin. Patient is very comfortable with this plan. ED Disposition - Plan for ED Patient: Disposition: Acute Care [facility] Diagnosis: Atrial flutter with rapid ventricular response, Pneumonia, Type 2 diabetes mellitus, Chronic obstructive lung disease, Benign hypertension Referrals: Veronica Oquendo DO [Primary Care Provider] -
[2020-04-16 14:13] LABS: Lactic Acid 1.1 mmol/L (0.4-1.9)
--- NOTE | 2020-04-16 14:58 | HP.PCM_ITS ---
History of Present Illness Date of Admission: 04/16/20 Chief Complaint: chest pain, tachycardia The patient is a 69 year old F with a past medical history as outlined. She was admitted through the ED on 04/16/2020 after being fired from her primary care physician's office. She had complained of chest pain when she went to her PCPs office. Pain has been going on for a few days and was pressure-like, retrosternal and aggravated by exertion and relieved by rest. She also complained of palpitations with accompanying shortness of breath and sweaty sensation. Patient does say she was told she had A. fib about 6 years ago while she was having surgery but has not recurred since then. She had been following up with Dr. Delgado of pulmonology for shortness of breath and work-up done so far has been negative so she had been referred to see Dr. Rush of cardiology but had not seen him yet. On admission the ED, vitals were significant for heart rate of 138. EKG done showed wide complex tachycardia and she was given a bolus of Cardizem. Heart rate subsequently came down to the 70s and repeat EKG done showed normal sinus rhythm. At time of review, heart rate was 79 with respiratory rate of 19 and temperature of 98 as well as blood pressure of 120/90. Labs showed creatinine of 1.94 and potassium was 4.9. BNP was 206 initial troponin was negative. BC showed white cell count of 18.8 and hemoglobin of 14.2 with platelets of 349. Chest x-ray showed degenerative changes with no acute cardiopulmonary process seen. Chest CT showed ill-defined groundglass opacities as seen in the anterior segment of the right upper lung lobe suggesting early pneumonia. Of note, she denied any fever or chills or productive cough and denied any shortness of breath at rest. She also denied any exposure to any COVID patient. She has been admitted to be managed for chest pain rule out ACS and tachycardia. [] Past Medical History Past Medical History (Chronic Problems): Chronic Problems On home O2 (Chronic) Sarcoidosis (Chronic) Type 2 diabetes mellitus (Chronic) Chronic obstructive lung disease (Chronic) mild Hyperlipidemia (Chronic) CKD (chronic kidney disease), stage II (Chronic) Benign hypertension (Chronic) Allergies clindamycin Allergy (Verified 04/16/20 11:15) Rash ciprofloxacin Adverse Reaction (Mild, Verified 04/16/20 11:15) Upset Stomach amoxicillin trihydrate [From Augmentin] Adverse Reaction (Verified 04/16/20 11:15) Nausea morphine Adverse Reaction (Verified 04/16/20 11:15) Nausea potassium clavulanate [From Augmentin] Adverse Reaction (Verified 04/16/20 11:15) Nausea Home Medications: Ambulatory Orders Medication Instructions Recorded Albuterol Aerosols [Ventolin 2.5 mg INHALATION Q6H PRN PRN 07/07/14 Aerosols] Fenofibric Acid (Choline) 135 mg PO DAILY 07/07/14 [Trilipix] Loratadine [Claritin] 10 mg PO DAILY 07/07/14 Losartan Potassium [Cozaar] 50 mg PO DAILY 07/07/14 Montelukast [Singulair] 10 mg PO QHS 07/07/14 Alendronate Sodium [Fosamax] 70 mg PO MO 06/21/17 Fluticasone 0.05% [Flonase Nasal 1 spray NASAL DAILY PRN PRN 06/21/17 [place]] Fluticasone/Salmeterol [Advair 1 puff INHALATION BID 06/21/17 500/50 Mcg Diskus] Insulin Detemir [Levemir FlexPen] 40 units SC QHS 06/21/17 Pantoprazole Sodium [Protonix] 40 mg PO DAILY 06/21/17 Tiotropium [place] [Spiriva 1 puff IH DAILY 06/21/17 Respimat] Sour Scott Extract [Tart [place] 1,000 mg PO DAILY 01/07/18 Extract] Aspirin [Aspirin, Baby] 81 mg PO DAILY 12/30/18 Febuxostat [Uloric] 40 mg PO DAILY 12/30/18 Sitagliptin Phosphate [Januvia] 50 mg PO QHS 12/30/18 Triamterene 37.5MG/Hctz 25MG 1 tablet PO DAILY 12/30/18 [Maxzide 37.5 mg-25 mg Tablet] Ranitidine [Zantac] 150 mg PO QHS 01/21/19 Cholecalciferol (VIT D3) [Vitamin 1,000 unit PO DAILY 04/16/20 D] Lactobacillus Combination No.4 1 cap PO DAILY 04/16/20 [Probiotic] [place]-3S/Dha/Epa/Fish Oil [Fish 1 cap PO DAILY 04/16/20 Oil 1,000 mg Softgel] Surgical History: cholecystectomy, hysterectomy, total knee arthroplasty, - - Lumbar back surgery, foot surgery, Psychiatric History: No pertinent psych hx MICROSCOPIST History: No pertinent MICROSCOPIST history Lives: Alone Smoking Status: Former smoker Alcohol: None Drugs: None - *Family History Paternal History Items: Cancer - lung cancer Maternal History Items: COPD, Hypertension Sibling History Items: Diabetes Review of Systems Constitutional: Denies: Chills, Fever, Malaise, Weight Change Eyes: Denies: Blurred vision HEENT: Denies: Head Aches, Sinus Congestion, Sinus Drainage Cardiovascular: Reports: Chest Pain, Chest Pressure, Heaviness, Light Headedness, Palpitations. Denies: Chest Tightness, Orthopnea Respiratory: Reports: Cough, Shortness of Breath, Shortness of breath upon e xertion. Denies: Shortness of breath at rest, Sputum production, Wheezing Gastrointestinal: Denies: Abdominal Pain, Nausea, Vomiting Genitourinary: Denies: Dysuria Musculoskeletal: Denies: Joint Pain, Joint Tenderness Skin: Denies: Rash, Wounds Neurological: Denies: Numbness, Tingling, Focal weakness Psychiatric: Denies: Anxiety, Depression, Homicidal Ideations, Suicidal Ideations Hematologic/ Lymphatic: Denies: Easy Bruising, Easy Bleeding VTE Information - Inpt Only VTE Present on Admission: No VTE Pharm Prophylaxis ordered?: Yes Patient Problems: Active and Suspected Problems Atrial flutter with rapid ventricular response (Acute) Pneumonia (Acute) - Physical Exam Vitals/I&O's: Vital Signs Temp Pulse Resp BP Pulse Ox 97.4 F L 73 18 123/64 H 99 04/16/20 11:15 04/16/20 14:30 04/16/20 14:30 04/16/20 14:30 04/16/20 14:30 Oxygen Flow Rate (L/min) 2 Oxygen Delivery Method Nasal Cannula Weight: 199 lb Body Mass Index (BMI) 38.8 General: Alert, Oriented x3, Cooperative, No apparent distress, - - obese HEENT: Atraumatic, PERRLA, EOMI, Normocephalic Oral: Dry Mucosa Neck: Supple, No JVD, Negative Carotid Bruits Lungs: Clear to auscultation, Normal air movement, No rhonchi, No wheeze, No rales Cardiovascular: Regular rate, Regular Rhythm, Normal S1, Normal S2, No murmurs Abdomen: Bowel Sounds Present, Soft, Non Tender, Non-Distended, No Hepato- splenomegaly Extremities: No clubbing, No cyanosis, No edema, Capillary Refill Less than 3 Seconds Skin: No rashes, No breakdown Musculoskeletal: No Tenderness to Palpation of Joints or Extremities Lymphatic: No Cervical, Supraclavicular, or Inguinal Adenopathy Neurological: Cranial nerves II-XII grossly intact, Neuro grossly intact, Motor Exam 5/5 strength throughout Psych/Mental Status: Normal Affect, Appropriate, Alert and oriented to time, place, person, mood and affect Laboratory Results 04/16/20 11:45: WBC 18.8 H, RBC 4.87, Hgb 14.2, Hct 44.8, MCV 92.0, MCH 29.2, MCHC 31.7 L, RDW Std Deviation 48.5 H, RDW Coeff of Jazzmine 14.5, Plt Count 349, MPV 10.1, Immature Gran % (Auto) 4.600 H, Neut % (Auto) 76.8 H, Lymph % (Auto) 7.5 L , [place] % (Auto) 9.0, Eos % (Auto) 1.2, Baso % (Auto) 0.9, Absolute Neuts (auto) 14.5 H, Absolute Lymphs (auto) 1.41, Nucleated RBC % 0, Differential Comment COMMENT, Diff Path Review March04/16/20 11:45: PT 12.7, INR 1.0, APTT 24.2 04/16/20 11:45: Sodium 138, Potassium 4.9, Chloride 108 H, Carbon Dioxide 25.0, Anion Gap 5, BUN 44 H, Creatinine 1.94 H, Estim Creat Clear Calc 19.66, Est GFR (MDRD) Af Amer 33 L, Est GFR (MDRD) Non-Af 27 L, BUN/Creatinine Ratio 22.7 H, Glucose 199 H, Calcium 10.0, Magnesium 1.9, Total Bilirubin 0.40, AST 12 L, ALT 30, Alkaline Phosphatase 44 L, Troponin I < 0.015, Total Protein 6.8, Albumin 3.6, Globulin 3.2, Albumin/Globulin Ratio 1.1 04/16/20 11:45: B-Natriuretic Peptide 206.4 H 04/16/20 13:20: Lactic Acid 1.1 Diagnostic Data Chest X-Ray 04/16/20 11:53 IMPRESSION: Degenerative changes, as described above. No demonstrated acute cardiopulmonary process. No acute abnormality is seen. Electronically Signed: Royce Phipps, at 12:55 EDT Tel , Service support , Chest CT 04/16/20 13:01 IMPRESSION: Ill-defined groundglass opacities are seen in the anterior segment of the right lung upper lobe suggesting early pneumonia. Electronically Signed: Royce Phipps, at 14:06 EDT Tel , Service support , Current Medications Sodium Chloride () 1,000 mls @ 150 mls/hr IV .[id number] BENNIE Last Admin: 04/16/20 12:32 Dose: 150 mls/hr Documented by: Azithromycin 500 mg/ Dextrose 255 mls @ 250 mls/hr IV X1 ONE Stop: 04/16/20 15:24 Assessment/Plan All Active Problems Atrial flutter with rapid ventricular response (Acute) Pneumonia (Acute) Lung abscess (Acute) 69 y/o admitted with a complaint of chest pain and shortness of breath, and found to be tachycardic 1. Chest pain to r/o ACS * To PCU with telemetry * Initial troponin is negative. We will cycle. * P.o. aspirin 81 mg daily. Sublingual nitroglycerin as needed. * If troponins are negative, for stress test tomorrow. * 2. Paroxysmal A. fib * Have a remote history of A. fib which she says she was told she had when she was having surgery 6 years ago. * Has been having palpitations at home. EKG done on admission showed wide complex tachycardia. There is no clear evidence of A. fib. Tachycardia however resolved with administration of IV bolus Cardizem. * Will check TSH. Potassium and magnesium are within normal limits. * Will continue monitoring for now. * CHADVASC score is 4; will need anticoagulation if she does go into Afib * 3. leucocytosis: * wbc is 18. * Chest CT done showed ill-defined groundglass opacities are seen in the anterior segment of the right upper lung lobe suggesting early pneumonia. * Patient does not really have a productive cough as cough is mainly dry. She was on steroid shots last week but has not had any since then. * UA is pending. * He was given IV ceftriaxone and azithromycin in the ED. I am not convinced that patient has any pneumonia as she does not have any respiratory symptoms of note. Will monitor any white cell count trends upwards, will continue treatment for pneumonia. * 4. Hyeprtension; controlled. On losartan and maxzide 5. Diabetes mellitus: Insulin Levemir 40 units nightly and sitagliptin 50mg nightly. Insulin sliding scale. Accu-Cheks AC at bedtime. * * 6. COPD: Not in exacerbation. On albuterol and Advair as well as Spiriva. Will hold albuterol for now on account of tachycardia. Give DuoNeb's. 7. GERD: On ranitidine. DVT prophylaxis: Lovenox CODE STATUS: Full code * Patient counseled extensively about different types of CODE STATUS including full code, DNR CCA and DNR CCA. Patient elects to be full code. Total [id number] time 16 minutes. OBSV E&M: 82015 Initial observation care L3 Procedures: 29987 Advncd Care Plan 30 Min
[2020-04-16] MEDS: Ceftriaxone 1 GM/50 ML BAG IV (14:59)
--- NOTE | 2020-04-16 17:14 | EKG12_ITS ---
Test Reason : CP ADMISSION Blood Pressure : / mmHG Vent. Rate : 086 BPM Atrial Rate : 086 BPM P-R Int : 152 ms QRS Dur : 146 ms QT Int : 438 ms P-R-T Axes : 066 116 047 degrees QTc Int : 524 ms Normal sinus rhythm with sinus arrhythmia Right bundle branch block Septal infarct , age undetermined Abnormal ECG Confirmed by QUANG FELIX, JOSE LUIS ([id number]), photographic editor YAEL LOPEZ ([id number]) on 04/19/2020 4:03:46 PM Referred By: DEBRA Confirmed By:JOSE LUIS DEL RIO MD
[2020-04-16 17:19] LABS: Bacteria 0 SEEN /hpf (None Seen); Mucous, Urine 0 SEEN /hpf (<or=2+); Red Blood Cells-Urine 0 SEEN /hpf (0-5); Squamous Epithelial Cells - UA 0 SEEN /hpf (5-10); White Blood Cells 0 SEEN /hpf (0-5)
[2020-04-16 17:23] LABS: Color, Urine Yellow (Yellow); Glucose, Dipstick Normal (Normal); Ketone-Dipstick Negative (Negative); Leukocyte Esterase-Dipstick Negative /ul (Negative); Nitrite-Dipstick Negative (Negative); Occult Blood-Urine Negative /ul (Negative); Protein-Dipstick Negative (Negative); Specific Gravity, Urine 1.015 (1.002-1.030); Urine Bilirubin Dipstick Negative (Negative); Urine Clarity Clear (Clear); Urine Urobilinogen Normal (Normal)
[2020-04-16] MEDS: 0.9% Saline Lock 10 ML Syringe IV (17:30)
[2020-04-16] MEDS: Ondansetron 4 MG/2 ML Vial IV (17:30)
[2020-04-16 17:33] LABS: Magnesium 1.9 mg/dL (1.6-2.6)
[2020-04-16 18:11] LABS: Bedside Glucose 182 mg/dL (70-110)
[2020-04-16] MEDS: Insulin Lispro 100 UNIT/ML INSULN.PEN SC (18:13)
[2020-04-16] MEDS: Budesonide Respules 0.5 MG/2 ML AMPUL.NEB. INHALATION (20:00)
[2020-04-16] MEDS: Ipratropium/Albuterol Sulfate 3 ML AMPUL.NEB INHALATION (20:00)
[2020-04-16] MEDS: Famotidine 20 MG Tablet PO (23:01)
[2020-04-16] MEDS: LINAGLIPTIN 5 MG TABLET PO (23:01)
[2020-04-16] MEDS: Montelukast 10 MG Tablet PO (23:02)
[2020-04-16 23:20] LABS: Bedside Glucose 143 mg/dL (70-110)
[2020-04-17] VITALS (8 sets, daily range): BP systolic 118–126; BP diastolic 51–57; PULSE 61–77; RESP 18–19; TEMP 36.5–36.6; O2SAT 92–98
[2020-04-17] MEDS: 0.9% Normal Saline 1,000 ML 150 ML IV ×2 (00:55→07:50)
--- NOTE | 2020-04-17 01:50 | NURSING ---
Verbal report given to Michelle Tellez RN. She will resume care of pt at this time.
--- NOTE | 2020-04-17 05:55 | EKG12_ITS ---
Test Reason : AM EKG Blood Pressure : / mmHG Vent. Rate : 064 BPM Atrial Rate : 064 BPM P-R Int : 154 ms QRS Dur : 144 ms QT Int : 482 ms P-R-T Axes : 062 108 064 degrees QTc Int : 497 ms Sinus rhythm with Fusion complexes Right bundle branch block Septal infarct , age undetermined Abnormal ECG Confirmed by QUANG FELIX, JOSE LUIS ([id number]), publication editor YAEL LOPEZ ([id number]) on 04/19/2020 4:14:40 PM Referred By: DR RICHARDSON Confirmed By:JOSE LUIS DEL RIO MD
[2020-04-17] MEDS: Aspirin 81 MG TAB.CHEW PO (06:30)
[2020-04-17] MEDS: Losartan Potassium 50 MG Tablet PO (06:30)
[2020-04-17 06:41] LABS: Bedside Glucose 132 mg/dL (70-110)
[2020-04-17] MEDS: Budesonide Respules 0.5 MG/2 ML AMPUL.NEB. INHALATION (06:53)
[2020-04-17] MEDS: Ipratropium/Albuterol Sulfate 3 ML AMPUL.NEB INHALATION (06:53)
[2020-04-17 06:58] LABS: Absolute Lymphocyte Count 0.93 X10^3/uL (0.83-4.51); Absolute Neutrophil Count 8.3 X10^3/uL (2.0-7.7); Basophil# 0.06 X10^3/uL; Basophil% 0.6 % (0-1); Eosinophil# 0.18 X10^3/uL; Eosinophils% 1.7 % (0-5); Hematocrit 38.5 % (37-47); Hemoglobin 11.9 g/dL (12.0-15.0); Lymphocyte # 0.93 X10^3/ul (4.0); Lymphocyte % 8.9 % (19-41); Mean Corp Hgb Conc 30.9 g/dL (32-36); Mean Corpuscular Hgb 29.4 pg (27.0-32.0); Mean Corpuscular Volume 95.1 fL (81-99); Monocyte# 0.74 X10^3/uL; Monocyte% 7.1 % (0-10); NRBC Flagged by Analyzer 0 % (0-5); Neutrophil # 8.27 X10^3/uL (2.7-7.7); Neutrophil % 79.3 % (47-70); Platelet Count 193 K/mm3 (150-450); RBC Distribution Width CV 14.6 % (11.6-14.6); RBC Distribution Width SD 50.5 fl (35.1-43.9); Red Blood Count 4.05 M/mm3 (4.2-5.4); White Blood Count 10.4 K/mm3 (4.4-11.0)
[2020-04-17 07:25] LABS: Anion Gap 4 (5-15); BUN 40 mg/dL (7-18); BUN/Creat Ratio 25.6 RATIO (10-20); Calcium,Total 8.9 mg/dL (8.5-10.1); Chloride 115 mmol/L (98-107); Creatinine, Serum 1.56 mg/dL (0.55-1.02); EST Glomerular Filtration Rate 35 mL/min (>60); Est Glom Filt Rate - Afr Amer 42 mL/min (>60); Estimated Creatinine Clearance 24.45 ml/min; Glucose 140 mg/dL (74-106); Potassium 4.9 mmol/L (3.5-5.1); Sodium Level 145 mmol/L (136-145)
--- NOTE | 2020-04-17 10:30 | CASEMGMT ---
SARA BARON Face to Face with patient for initial transition planning/care coordination assessment. RN CM introduced self and role at [facility]. Patient lying in bed, alert and oriented. Patient willing to participate in assessment and is able to answer all questions appropriately. Care providers, pharmacy, and demographics verified. Patient wishes to discharge home, denies need for home health at this time. Patient states she has no further needs or concerns at this time. CM to follow for discharge planning needs that may arise. PCP: Azra Specialists: Quintin, research analyst; Donny, pulmonogist Preferred Pharmacy: [facility] Insurance: [employer] Prescription Benefit: yes Living Will/HPOA: yes, Willian Ling LNOK: Living Arrangements: Patient lives with in single story home with 1 step to enter the home. Patient states she is independent Transportation: self, DME/HHC: Patient states she has shower chair, raised toilet, cane, walker, nebulizer, oxygen 2lpm at through [facility]. Patient has had [facility] in the past, denies previous SNF. Disposition Plan: Patient to discharge home with family support and follow-up plans in place. Alannah DIAMOND, RN, CM
[2020-04-17 10:55] LABS: Pathologist Review Reviewed
--- NOTE | 2020-04-17 12:19 | CASEMGMT ---
SARA BARON NOTE: Call placed to [facility]. Confirmed current O2 orders is 2 L/M @ HS only. Pt has a concentrator and back-up portable O2 tank. Leonard DIAMOND RN CM
--- NOTE | 2020-04-17 12:27 | STRESSREP_ITS ---
Stress Test Report Date: 04-17-2020 Procedure: Pharmacologic stress nuclear imaging study Indications: Chest pain Consent: Per the patient Procedure: The patient underwent pharmacologic (Regadenoson) evaluation with a peak heart rate of 92 beats per minute (60 %predicted maximal heart rate) and a peak blood pressure of 132/70 mmHg. The baseline ECG demonstrated normal sinus rhythm; right IVCD; anteroseptal IL of indeterminate age cannot be excluded. The peak pharmacologic ECG demonstrated no obvious ECG changes. There were no cardiac dysrhythmias pretest, during pharmacologic infusion, or recovery. There was no complaint of chest discomfort during pharmacologic infusion or recovery. The examination was discontinued secondary to completion of protocol. Impression: 1. Pharmacologic (Regadenoson) evaluation 2. Peak pharmacologic ECG with no obvious ECG changes. 3. There were no cardiac dysrhythmias pretest, during pharmacologic infusion, or recovery. 4. Nuclear images pending Myocardial perfusion imaging study: Technique: The patient was injected with 12.0 millicuries of technetium 99m Cardiolite and subsequently rest SPECT Cardiolite nuclear imaging was obtained in the horizontal long, vertical long, and short axis views. The patient underwent pharmacologic (Regadenoson) evaluation with a peak heart rate of 92 beats per minute (60 % percent predicted maximal heart rate) and a peak blood pressure of 132/70 mmHg. The patient was injected with 36.0 millicuries of technetium 99m Cardiolite and subsequently stress SPECT Cardiolite nuclear imaging was obtained in the horizontal long, vertical long, and short axis views. A gated Cardiolite study at peak stress was obtained. Interpretation: Rest and stress SPECT Cardiolite nuclear imaging status post realignment, normalization, and attenuation correction demonstrate relative uniform tracer uptake and myocardial perfusion appearing within normal limits. There is end systolic thickening and brightening. The gated Cardiolite study demonstrates myocardial thickening and inward wall motion. The reported LVEF is 69 %. Impression: 1. Rest and stress SPECT Cardiolite nuclear imaging demonstrate relative uniform tracer uptake and myocardial perfusion appearing within normal limits. 2. The gated Cardiolite study reports an LVEF of 69 %. This note was generated with [employer] software. It may contain incorrect words, spelling, and punctuation that were not noted in checking the note before signing.
[2020-04-17] MEDS: Insulin Lispro 100 UNIT/ML INSULN.PEN SC (13:40)
--- NOTE | 2020-04-17 13:48 | NURSING ---
pt off floor for testing unable to complete VSA on time.
[2020-04-17 14:10] LABS: Bedside Glucose 186 mg/dL (70-110)
--- NOTE | 2020-04-17 15:39 | DCINST_ITS ---
- Discharge Diagnoses Current Active Problems: Current Active and Chronic Problems Atrial flutter with rapid ventricular response (Acute) Pneumonia (Acute) Type 2 diabetes mellitus (Chronic) Chronic obstructive lung disease (Chronic) mild Benign hypertension (Chronic) You will use the following diet at home:: Cardiac Your food should be the consistency of: Regular Your liquids should be the consistency of: Regular/Thin Discharge Activity: Return to Normal Activity Weight Bearing Status: Weight bearing as tolerated Call your doctor if you observe: Fever of 101 or Higher, Shortness of breath, Dizziness, Increased palpitations (irregular heartbeat) Instructions: What Is Angina? Additional Instructions: to wear 48 hour Holter monitor to evaluate for Afib and other arrhythmias Allergies/Adverse Reactions: Allergies clindamycin Allergy (Verified 04/16/20 11:15) Rash ciprofloxacin Adverse Reaction (Mild, Verified 04/16/20 11:15) Upset Stomach amoxicillin trihydrate [From Augmentin] Adverse Reaction (Verified 04/16/20 11:15) Nausea morphine Adverse Reaction (Verified 04/16/20 11:15) Nausea potassium clavulanate [From Augmentin] Adverse Reaction (Verified 04/16/20 11:15) Nausea Medications to take at Discharge Albuterol Aerosols [Ventolin Aerosols] 2.5 mg INHALATION Q6H PRN PRN 07/07/14 Fenofibric Acid (Choline) [Trilipix] 135 mg PO DAILY 07/07/14 Loratadine [Claritin] 10 mg PO DAILY 07/07/14 Losartan Potassium [Cozaar] 50 mg PO DAILY 07/07/14 Montelukast [Singulair] 10 mg PO QHS 07/07/14 Alendronate Sodium [Fosamax] 70 mg PO MO 06/21/17 Fluticasone 0.05% [Flonase Nasal [place]] 1 spray NASAL DAILY PRN PRN 06/21/17 Fluticasone/Salmeterol [Advair 500/50 Mcg Diskus] 1 puff INHALATION BID 06/21/17 Insulin Detemir [Levemir FlexPen] 40 units SC QHS 06/21/17 Pantoprazole Sodium [Protonix] 40 mg PO DAILY 06/21/17 Tiotropium [place] [Spiriva Respimat] 1 puff IH DAILY 06/21/17 Sour Scott Extract [Tart Scott Extract] 1,000 mg PO DAILY 01/07/18 Aspirin [Aspirin, Baby] 81 mg PO DAILY 12/30/18 Febuxostat [Uloric] 40 mg PO DAILY 12/30/18 Sitagliptin Phosphate [Januvia] 50 mg PO QHS 12/30/18 Triamterene 37.5MG/Hctz 25MG [Maxzide 37.5 mg-25 mg Tablet] 1 tablet PO DAILY 12/30/18 Ranitidine [Zantac] 150 mg PO QHS 01/21/19 Cholecalciferol (VIT D3) [Vitamin D3] 1,000 unit PO DAILY 04/16/20 Lactobacillus Combination No.4 [Probiotic] 1 cap PO DAILY 04/16/20 [place]-3S/Dha/Epa/Fish Oil [Fish Oil 1,000 mg Softgel] 1 cap PO DAILY 04/16/20 Orders to be completed after discharge: Cardiac Holter Monitor, Set-Up [[facility]] Location: None Selected Primary Care Physician: Veronica Oquendo DO [Primary Care Provider] - Please follow up with your Primary Care Physician in: 1-2 weeks Test Results: Test results from this visit will be discussed in further detail at your follow- up appointment, if applicable. Please Follow Up With: Veronica Oquendo DO Please Follow Up With: David Schroeder MD When: 1 week Proposed Discharge Date: 04/17/20
--- NOTE | 2020-04-17 15:51 | DS.PCM_ITS ---
Discharge Date and Diagnosis - Problem List Patient Problems: Active and Suspected Problems Atrial flutter with rapid ventricular response (Acute) Pneumonia (Acute) Date of Admission: 04/16/20 Date of Discharge: 04/17/20 - Primary Discharge Diagnosis Active and Suspected Problems chest pain Pneumonia (Acute) - Secondary Discharge Diagnosis Chronic Problems On home O2 (Chronic) Sarcoidosis (Chronic) Type 2 diabetes mellitus (Chronic) Chronic obstructive lung disease (Chronic) mild Hyperlipidemia (Chronic) CKD (chronic kidney disease), stage II (Chronic) Benign hypertension (Chronic) Hospital Course and Treatment Imaging Results: Diagnostic Data Chest X-Ray 04/16/20 11:53 IMPRESSION: Degenerative changes, as described above. No demonstrated acute cardiopulmonary process. No acute abnormality is seen. Electronically Signed: Royce Phipps, at 12:55 EDT Tel , Service support , Chest CT 04/16/20 13:01 IMPRESSION: Ill-defined groundglass opacities are seen in the anterior segment of the right lung upper lobe suggesting early pneumonia. Electronically Signed: Royce Phipps, at 14:06 EDT Tel , Service support , Operations: None Procedures: Nuclear stress test Summary of Care Provided: The patient is a 69 year old F with a past medical history as outlined. She was admitted through the ED on 04/16/2020 after being fired from her primary care physician's office. She had complained of chest pain when she went to her PCPs office. Pain has been going on for a few days and was pressure-like, retrosternal and aggravated by exertion and relieved by rest. She also complained of palpitations with accompanying shortness of breath and sweaty sensation. Patient does say she was told she had A. fib about 6 years ago while she was having surgery but has not recurred since then. She had been following up with Dr. Delgado of pulmonology for shortness of breath and work-up done so far has been negative so she had been referred to see Dr. Rush of cardiology but had not seen him yet. On admission the ED, vitals were significant for heart rate of 138. EKG done showed wide complex tachycardia and she was given a bolus of Cardizem. Heart rate subsequently came down to the 70s and repeat EKG done showed normal sinus rhythm. At time of review, heart rate was 79 with re spiratory rate of 19 and temperature of 98 as well as blood pressure of 120/90. Labs showed creatinine of 1.94 and potassium was 4.9. BNP was 206 initial troponin was negative. BC showed white cell count of 18.8 and hemoglobin of 14.2 with platelets of 349. Chest x-ray showed degenerative changes with no acute cardiopulmonary process seen. Chest CT showed ill-defined groundglass opacities as seen in the anterior segment of the right upper lung lobe suggesting early pneumonia. Of note, she denied any fever or chills or productive cough and denied any shortness of breath at rest. She also denied any exposure to any COVID patient. She was admitted to be managed for chest pain rule out ACS and tachycardia. Troponins x3 were negative. Patient remained in sinus rhythm throughout admission and there was no evidence of A. fib. Had a stress test on 04/17/2020 which was negative for any ischemia. I discussed with cardiology about her occasional tachycardia. Per recommendation of cardiology, patient will be put on 48-hour Holter monitor to assess for A. fib or any other arrhythmia. Per my discussion with cardiology, no need to put patient on anticoagulation for now as there is no evidence of A. fib during this admission. She is to follow-up with her primary care doctor and she was referred to Dr. Valiente who will be reading the Holter monitor report. Patient seen and examined prior to discharge. She had no complaints and felt well. Review of symptoms otherwise negative. Labs and vitals reviewed. Home medication reviewed and reconciled. o/e: Vital Signs Temp Pulse Resp BP Pulse Ox 97.9 F 77 18 118/57 L 92 04/17/20 15:51 04/17/20 15:51 04/17/20 15:51 04/17/20 15:51 04/17/20 15:51 General: Alert, Oriented x3, Cooperative, No apparent distress, - - obese HEENT: Atraumatic, PERRLA, EOMI, Normocephalic Oral: Dry Mucosa Neck: Supple, No JVD, Negative Carotid Bruits Lungs: Clear to auscultation, Normal air movement, No rhonchi, No wheeze, No rales Cardiovascular: Regular rate, Regular Rhythm, Normal S1, Normal S2, No murmurs Abdomen: Bowel Sounds Present, Soft, Non Tender, Non-Distended, No Hepato- splenomegaly Extremities: No clubbing, No cyanosis, No edema, Capillary Refill Less than 3 Seconds Skin: No rashes, No breakdown Musculoskeletal: No Tenderness to Palpation of Joints or Extremities Lymphatic: No Cervical, Supraclavicular, or Inguinal Adenopathy Neurological: Cranial nerves II-XII grossly intact, Neuro grossly intact, Motor Exam 5/5 strength throughout Psych/Mental Status: Normal Affect, Appropriate, Alert and oriented to time, place, person, mood and affect Plan is for dc home with a 48 hour Holter monitor and to take PO doxycycline 100mg bid x 5 days. Patient Problems: Active and Suspected Problems Atrial flutter with rapid ventricular response (Acute) Pneumonia (Acute) - Physical Exam Vitals/I&O's: Vital Signs Temp Pulse Resp BP Pulse Ox 97.9 F 77 18 118/57 L 92 04/17/20 13:00 04/17/20 13:00 04/17/20 13:00 04/17/20 13:00 04/17/20 13:00 Oxygen Flow Rate (L/min) 2 Oxygen Delivery Method Room Air Weight: 201 lb Body Mass Index (BMI) 39.2 Intake and Output for Last 24 Hours 04/15/20 04/16/20 04/17/20 23:59 23:59 23:59 Intake Total 1667.5 / 1667.5 2260 / 2260 Balance 1667.5 / 1667.5 2260 / 2260 Laboratory Results 04/16/20 11:45: Diff Path Review Reviewed 04/16/20 17:00: Urine Color Yellow, Urine Clarity Clear, Urine pH 6.0, Ur Specific [place] 1.015, Urine Protein Negative, Urine Glucose (UA) Normal, Urine Ketones Negative, Urine Occult Blood Negative, Urine Nitrite Negative, Urine Bilirubin Negative, Urine Urobilinogen Normal, Ur Leukocyte Esterase Negative, Urine RBC 0 SEEN, Urine WBC 0 SEEN, Ur Squamous Epith Cells 0 SEEN, Urine Bacteria 0 SEEN, Urine Mucus 0 SEEN 04/16/20 17:06: Magnesium 1.9, Troponin I 0.043 04/16/20 17:45: POC Glucose 182 H 04/16/20 19:42: Troponin I 0.038 04/16/20 22:55: POC Glucose 143 H 04/17/20 06:28: POC Glucose 132 H 04/17/20 06:46: WBC 10.4, RBC 4.05 L, Hgb 11.9 L, Hct 38.5, MCV 95.1, MCH 29.4, MCHC 30.9 L, RDW Std Deviation 50.5 H, RDW Coeff of [place] 14.6, Plt Count 193, MPV 10.0, Immature Gran % (Auto) 2.400 H, Neut % (Auto) 79.3 H, Lymph % (Auto) 8.9 L , [place] % (Auto) 7.1, Eos % (Auto) 1.7, Baso % (Auto) 0.6, Absolute Neuts (auto) 8.3 H, Absolute Lymphs (auto) 0.93, Nucleated RBC % 0 04/17/20 06:46: Sodium 145, Potassium 4.9, Chloride 115 H, Carbon Dioxide 26.0, Anion Gap 4 L, BUN 40 H, Creatinine 1.56 H, Estim Creat Clear Calc 24.45, Est GFR (MDRD) Af Amer 42 L, Est GFR (MDRD) Non-Af 35 L, BUN/Creatinine Ratio 25.6 H , Glucose 140 H, Calcium 8.9 04/17/20 13:38: POC Glucose 186 H Current Medications Albuterol/Ipratropium (Duoneb) 3 ml INHALATION Q6HWA.RT [facility] Last Admin: 04/17/20 06:53 Dose: 3 ml Documented by: Alendronate Sodium (Fosamax) 70 mg PO Mo@0600 [facility] Aspirin (Aspirin, Baby) 81 mg PO DAILY@0800 [facility] Last Admin: 04/17/20 06:30 Dose: 81 mg Documented by: Budesonide (Pulmicort Aerosol) 0.5 mg INHALATION Q12H.RT [facility] Last Admin: 04/17/20 06:53 Dose: 0.5 mg Documented by: Cholecalciferol (Vitamin D (25mcg)) 1,000 unit PO DAILY [facility] Dextrose (D50w Syringe) 0 gm IV X1 PRN; Protocol PRN Reason: Hypoglycemia Enoxaparin Sodium (Lovenox) 30 mg SC DAILY [facility] Famotidine (Pepcid) 20 mg PO QHS [facility] Last Admin: 04/16/20 23:01 Dose: 20 mg Documented by: Febuxostat (Uloric) 40 mg PO DAILY [facility] Fenofibrate (Tricor) 145 mg PO DAILY [facility] Fluticasone Propionate (Flonase Nasal [place]) 1 spray NASAL DAILY PRN PRN PRN Reason: CONGESTION Glucagon () 1 mg IM .X1 PRN PRN Reason: Hypoglycemia Sodium Chloride () 1,000 mls @ 150 mls/hr IV .Q6H40M [facility] Last Infusion: 04/17/20 10:00 Dose: 0 mls/hr Documented by: Insulin Glargine (Lantus ([facility])) 40 units SC QHS [facility] Last Admin: 04/17/20 00:21 Dose: 20 u Documented by: Insulin Human Lispro (Humalog Kwikpen ([facility])) 0 unit SC [facility]; Protocol Last Admin: 04/17/20 13:40 Dose: 2 u Documented by: Lactobacillus Acidophilus (Acidophilus) 1 tablet PO DAILY [facility]agliptin ([facility]adjenta) [facility] Last Admin: 04/16/20 23:01 Dose: 5 mg Documented by: Loratadine (Claritin) 10 mg PO DAILY [facility] Losartan Potassium (Cozaar) 50 mg PO DAILY [facility] Last Admin: 04/17/20 06:30 Dose: 50 mg Documented by: Montelukast Sodium (Singulair) 10 mg PO QHS [facility] Last Admin: 04/16/20 23:02 Dose: 10 mg Documented by: Nitroglycerin (Nitrostat) 0.4 mg SUBLINGUAL Q5M PRN PRN Reason: CARDIAC/CHEST PAIN Ondansetron HCl (Zofran) 4 mg IV Q8H PRN PRN PRN Reason: NAUSEA/VOMITING Last Admin: 04/16/20 17:30 Dose: 4 mg Documented by: Sodium Chloride () 10 - 40 ml IV UD PRN PRN Reason: SALINE FLUSH Last Admin: 04/16/20 17:30 Dose: 10 ml Documented by: Throat Lozenges (Cepacol Sore Throat Lozenge) 1 lozenge MUCOUS MEM Q2H PRN PRN PRN Reason: SORE THROAT Triamterene/HCTZ (Dyazide (G)) 1 cap PO DAILY [facility] Discharge Activity: Return to Normal Activity Weight Bearing Status: Weight bearing as tolerated Call your doctor if you observe: Fever of 101 or Higher, Shortness of breath, Dizziness, Increased palpitations (irregular heartbeat) Home Medications: Medications to take at Discharge Albuterol Aerosols [Ventolin Aerosols] 2.5 mg INHALATION Q6H PRN PRN 07/07/14 Fenofibric Acid (Choline) [Trilipix] 135 mg PO DAILY 07/07/14 Loratadine [Claritin] 10 mg PO DAILY 07/07/14 Losartan Potassium [Cozaar] 50 mg PO DAILY 07/07/14 Montelukast [Singulair] 10 mg PO QHS 07/07/14 Alendronate Sodium [Fosamax] 70 mg PO MO 06/21/17 Fluticasone 0.05% [Flonase Nasal [place]] 1 spray NASAL DAILY PRN PRN 06/21/17 Fluticasone/Salmeterol [Advair 500/50 Mcg Diskus] 1 puff INHALATION BID 06/21/17 Insulin Detemir [Levemir FlexPen] 40 units SC QHS 06/21/17 Pantoprazole Sodium [Protonix] 40 mg PO DAILY 06/21/17 Tiotropium [place] [Spiriva Respimat] 1 puff IH DAILY 06/21/17 Sour [place] Extract [Tart [place] Extract] 1,000 mg PO DAILY 01/07/18 Aspirin [Aspirin, Baby] 81 mg PO DAILY 12/30/18 Febuxostat [Uloric] 40 mg PO DAILY 12/30/18 Sitagliptin Phosphate [Januvia] 50 mg PO QHS 12/30/18 Triamterene 37.5MG/Hctz 25MG [Maxzide 37.5 mg-25 mg Tablet] 1 tablet PO DAILY 12/30/18 Ranitidine [Zantac] 150 mg PO QHS 01/21/19 Cholecalciferol (VIT D3) [Vitamin D3] 1,000 unit PO DAILY 04/16/20 Lactobacillus Combination No.4 [Probiotic] 1 cap PO DAILY 04/16/20 [place]-3S/Dha/Epa/Fish Oil [Fish Oil 1,000 mg Softgel] 1 cap PO DAILY 04/16/20 Doxycycline 100 mg PO BID #10 cap 04/17/20 Following Prescrptions Were Given to Patient: Doxycycline 100 mg PO BID #10 cap Transmission Status: Pending to [facility] Other Amb Orders: Cardiac Holter Monitor, Set-Up [[facility]] Location: None Selected Primary Care Physician: Veronica Oquendo DO [Primary Care Provider] - Please follow up with your Primary Care Physician in: 1-2 weeks Please Follow Up With: Veronica Oquendo DO Please Follow Up With: David Schroeder MD When: 1 week Patient Instructions: What Is Angina? Disposition: Home Minutes spent on discharge:: 35 Patient Condition:: Stable Medical Necessity - Tobacco Use Smoking Status: Former smoker Tobacco Use: Cigarettes Meaningful Use Info Meaningful Use Diagnoses (Choose all that apply): None applicable OBSV E&M: 82639 Observation care discharge
--- NOTE | 2020-04-17 15:59 | NURSING ---
Pt refused meds after stress test. Pt concerned about cost. Education provided to no effect. Pt states she will be going home today.
--- NOTE | 2020-04-18 13:06 | CASEMGMT ---
SARA BARON Discharge Follow-Up Phone Call. Lackelly: Tati Strata: 3 Discharge Date: 04/17/20 Adm Dx: New Onset A-fib, CP Call to pt to inquire about how she has been doing since being discharged from the hospital. Pt states she has been doing okay. She states she was SOB this morning for about 10-15 min, but she sat down and rested and it resolved on its own. She states, I think I was doing too much and walking too much. She states no further SOB today. She states the Holter monitor was placed yesterday and she currently has it on. She did record her symptoms/time this morning when the SOB occurred as per instructions for Holter monitor. SARA BARON advised pt, that if she has any further episodes that do not resolve on their own, to notify cardiology office or to return to ER. Pt voices understanding. 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 She feels it is already starting to help. She denies having any questions about the other medications or discharge instructions. She has an appt with Dr Schroeder scheduled for 04/[address] Oquendo 04/26. SARA BARON thanked pt for choosing [facility]. Leonard DIAMOND RN, CM
== END 2020-04-17 17:03 | disposition home or self-care (01) | DRG 308 ==
LOC: ED 14:54 → PCU 15:15
PROVIDERS: Admitting Provider Student in an Organized Health Care Education/Training Program; Emergency Provider Emergency Medicine; PCP Internal Medicine; Visit Provider Student in an Organized Health Care Education/Training Program
DX: I48.92 Unspecified atrial flutter (principal); J18.9 Pneumonia, unspecified organism; J44.0 Chronic obstructive pulmonary disease with (acute) lower respiratory infection; R00.0 Tachycardia, unspecified; R07.9 Chest pain, unspecified; E11.22 Type 2 diabetes mellitus with diabetic chronic kidney disease; I12.9 Hypertensive chronic kidney disease with stage 1 through stage 4 chronic kidney disease, or unspecified chronic kidney disease; N18.2 Chronic kidney disease, stage 2 (mild); D86.9 Sarcoidosis, unspecified; E78.5 Hyperlipidemia, unspecified; K21.9 Gastro-esophageal reflux disease without esophagitis; E66.9 Obesity, unspecified; Z68.38 Body mass index [BMI] 38.0-38.9, adult; Z99.81 Dependence on supplemental oxygen; Z79.82 Long term (current) use of aspirin; Z79.83 Long term (current) use of bisphosphonates; Z79.4 Long term (current) use of insulin; Z79.899 Other long term (current) drug therapy; Z88.1 Allergy status to other antibiotic agents; Z87.01 Personal history of pneumonia (recurrent); Z87.891 Personal history of nicotine dependence; Z96.659 Presence of unspecified artificial knee joint
CPT/HCPCS: 36415; 71045; 71250; 78452; 80048; 80053; 81001; 82962; 83605; 83735; 83880; 84484; 85025; 85610; 85730; 87040; 93005; 93017; 93225; 93226; 94640; 96361; 96374; 99285; A9500; J7030; A4216; J2405; J2785

== ENCOUNTER → 2020-04-25 15:59 | Outpatient (CLI) | payer MEDICARE, OTHER, SELFPAY ==
[2020-04-25 10:12] VITALS: BMI 41.2
[2020-04-25 16:14] LABS: Absolute Neutrophil Count 8.6 X10^3/uL (2.0-7.7); Basophil# 0.07 X10^3/uL; Basophil% 0.6 % (0-1); Eosinophil# 0.27 X10^3/uL; Eosinophils% 2.3 % (0-5); Hematocrit 40.6 % (37-47); Hemoglobin 12.6 g/dL (12.0-15.0); Lymphocyte % 10.4 % (19-41); Mean Corpuscular Hgb 29.2 pg (27.0-32.0); Mean Platelet Vol. 9.3 fl (6.2-12.0); Monocyte# 1.16 X10^3/uL; Monocyte% 10.1 % (0-10); NRBC Flagged by Analyzer 0 % (0-5); Neutrophil # 8.56 X10^3/uL (2.7-7.7); Neutrophil % 74.3 % (47-70); Platelet Count 304 K/mm3 (150-450); RBC Distribution Width CV 14.8 % (11.6-14.6); RBC Distribution Width SD 51.2 fl (35.1-43.9); Red Blood Count 4.32 M/mm3 (4.2-5.4); White Blood Count 11.5 K/mm3 (4.4-11.0)
[2020-04-25 16:56] LABS: Anion Gap 4 (5-15); BUN 46 mg/dL (7-18); BUN/Creat Ratio 26.3 RATIO (10-20); Calcium,Total 9.8 mg/dL (8.5-10.1); Chloride 110 mmol/L (98-107); Creatinine, Serum 1.75 mg/dL (0.55-1.02); EST Glomerular Filtration Rate 31 mL/min (>60); Est Glom Filt Rate - Afr Amer 37 mL/min (>60); Glucose 164 mg/dL (74-106); Potassium 4.7 mmol/L (3.5-5.1); Sodium Level 141 mmol/L (136-145)
== END ==
PROVIDERS: PCP Internal Medicine; Referring Provider Internal Medicine Cardiovascular Disease; Visit Provider Internal Medicine Cardiovascular Disease
DX: I11.0 Hypertensive heart disease with heart failure (principal); N18.2 Chronic kidney disease, stage 2 (mild); D86.9 Sarcoidosis, unspecified; E78.5 Hyperlipidemia, unspecified; I45.10 Unspecified right bundle-branch block; I48.0 Paroxysmal atrial fibrillation; I48.92 Unspecified atrial flutter; J45.909 Unspecified asthma, uncomplicated; R06.00 Dyspnea, unspecified; R07.9 Chest pain, unspecified
CPT/HCPCS: 36415; 80048; 85025

== ENCOUNTER 2020-05-04 06:58 | Day surgery (SDC) | payer MEDICARE, OTHER, SELFPAY ==
[2020-04-25 10:12] VITALS: BMI 41.2
[2020-05-03 09:39] VITALS: BMI 41.2
--- NOTE | 2020-05-04 09:35 | CL.D_ITS ---
Patient Name: WALLACE BAZAN Study Date: 05/04/2020 Performing: David Schroeder MD Ht: 59 inches 150 cm : 1950 Wt: 205.3 lbs 93 kg Age: 69 Gender: female BSA: 1.86 PROCEDURE(S) PERFORMED OF37-SQS/LHC/COR CLINICAL PROFILE AND INDICATIONS Indications: Suspected CAD Heart Failure: None Stress/Imaging Stress/Image Study Performed: No CAD Presentations: Symptom unlikely to be ischemic. CONCLUSIONS Non obstructive coronary arteries Right heart pressures - mildly elevated RECOMMENDATIONS Medical therapy DESCRIPTION OF PROCEDURE The patient arrived to the procedure lab. The risks and benefits of the procedure as well as a full d escription of our services here and current unavailability of surgical backup were fully explained to the patient and/or their significant other prior to the catheterization. The Timeout was completed, verifying the correct patient and procedure. The patient's procedural site was prepped and draped in the usual fashion. Local anesthetic was given subcutaneously to right groin region with Lidocaine 2%. Using a modified Seldinger technique, arterial access was obtained via the right femoral artery, a 5 Fr sheath was inserted. Venous access was obtained via the right femoral vein, a 7Fr sheath was inser jorge. A 7Fr thermal dilution catheter was inserted and right heart pressures were recorded, it was the n advanced to PA position for cardiac outputs. Thermal dilution cardiac outputs were then recorded. O 2 saturations were then obtained. The Thermal dilution catheter was then removed. Left Coronary Artery selective angiography was performed in multiple views using a 5 Fr. JL4 catheter. Rig ht Coronary Artery selective angiography was then performed in multiple views using a 5 Fr. 3DRC ([facility]) catheter.Contrast was injected through the sheath and the Right Iliac and Femoral artery were assessed for possible closure device.The arterial sheath was pulled and a Mynx closure device was dep loyed for hemostasis. The venous sheath was then pulled and manual compression applied until hemostas is achieved CORONARY ANGIOGRAPHY DOMINANCE: Right Dominant LEFT HEART ASSESSMENT Left Ventricular Ejection Fraction: by Echo 60 % Normal LV wall motion Normal Left Ventricular systolic function RIGHT HEART ASSESSMENT Thermal CO: 5.77 Thermal CI: 3.1 PW: 15/14 13 PA: 37/17 26 RV: 36/3 7 RA: 7/5 5 PVR: 180 SVR: 1594 LEFT MAIN: Mild calcification, Non-obstructive LEFT ANTERIOR DESCENDING ARTERY: Mild luminal irregularities CIRCUMFLEX ARTERY: Mild luminal irregularities RIGHT CORONARY ARTERY: Mild luminal irregularities COMPLICATIONS No Complications PROCEDURE MEDICATIONS Versed 1 mg IV IV Fluids: .9 NaCl IV started @ 100 ml/hr 05/04/2020 07:40:42 SUMMARY OF HEMODYNAMIC DATA Time AIR REST ECG 07:26:41 RA 7/5 (5) SV 09:04:44 RV 36/3, 7 09:05:15 PW 15/14 (13) PV 09:06:01 PA 37/17 (26) PA 09:06:24 AO 170/83 (120) SA 09:12:06 Type SV CO (l/m) CI (l/m/ HR Time AIR REST Thermal 74.00 5.77 3.10 78 07:26:41 Label % O2 Pres/Loc Time AIR REST AO 93 PV 09:19:47 PA 71 PA 09:19:51 RA 68 SV 09:19:59 Signed By David Schroeder MD On 05/04/2020 9:35:10 AM David Schroeder MD
[2020-05-07 07:20] LABS: Base Excess -2 mmol/L (-2 to +2); Bicarbonate 23.1 mmol/L (22-26); PO2 67 mmHG (75-100); SO2 93 % (95-99); Total Carbon Dioxide 24 mmol/L; pCO2 39.2 mmHg (35-45); pH 7.38 (7.35-7.45)
[2020-05-07 07:21] LABS: VBG BASE EXCESS -2 mmol/L (-1.0-3.5); VBG Bicarbonate 24 mmol/L (22-26); VBG Oxygen Content 25 mmol/L (23-33); VBG PO2 39 mmHg (25-40); VBG SO2 71 % (50-70); VBG pH 7.37 (7.32-7.42)
[2020-05-07 07:21] LABS: VBG BASE EXCESS -3 mmol/L (-1.0-3.5); VBG Bicarbonate 23 mmol/L (22-26); VBG Oxygen Content 24 mmol/L (23-33); VBG PO2 37 mmHg (25-40); VBG SO2 68 % (50-70); VBG pCO2 40.9 mmHg (41-51); VBG pH 7.36 (7.32-7.42)
== END 2020-05-04 13:10 | disposition home or self-care (01) ==
LOC: CLSP 07:00
PROVIDERS: PCP Internal Medicine; Referring Provider Internal Medicine Cardiovascular Disease; Visit Provider Internal Medicine Cardiovascular Disease
DX: I48.0 Paroxysmal atrial fibrillation (principal); I12.9 Hypertensive chronic kidney disease with stage 1 through stage 4 chronic kidney disease, or unspecified chronic kidney disease; E11.22 Type 2 diabetes mellitus with diabetic chronic kidney disease; N18.2 Chronic kidney disease, stage 2 (mild); R07.89 Other chest pain; R06.00 Dyspnea, unspecified; I48.92 Unspecified atrial flutter; I45.10 Unspecified right bundle-branch block; E78.5 Hyperlipidemia, unspecified; K21.9 Gastro-esophageal reflux disease without esophagitis; E66.9 Obesity, unspecified; J44.9 Chronic obstructive pulmonary disease, unspecified; D86.9 Sarcoidosis, unspecified; Z99.81 Dependence on supplemental oxygen; Z79.82 Long term (current) use of aspirin; Z79.4 Long term (current) use of insulin; Z79.02 Long term (current) use of antithrombotics/antiplatelets; Z79.899 Other long term (current) drug therapy; Z87.891 Personal history of nicotine dependence
CPT/HCPCS: 93456; 99152; 99153; C1760; J7040; C1751; C1769; C1894; Q9967

== ENCOUNTER → 2020-05-11 12:48 | Outpatient (CLI) | payer MEDICARE, OTHER, SELFPAY ==
[2020-05-03 09:39] VITALS: BMI 41.2
[2020-05-11 15:56] LABS: Albumin, Serum 3.7 g/dL (3.2-5.0); BUN 42 mg/dL (7-18); BUN/Creat Ratio 25.3 RATIO (10-20); Calcium,Total 10.3 mg/dL (8.5-10.1); Chloride 106 mmol/L (98-107); Creatinine, Serum 1.66 mg/dL (0.55-1.02); EST Glomerular Filtration Rate 33 mL/min (>60); Est Glom Filt Rate - Afr Amer 39 mL/min (>60); Glucose 148 mg/dL (74-106); Phosphorus 1.9 mg/dL (2.5-4.9); Potassium 4.4 mmol/L (3.5-5.1); Sodium Level 140 mmol/L (136-145)
== END ==
PROVIDERS: PCP Internal Medicine; Referring Provider Internal Medicine Nephrology; Visit Provider Internal Medicine Nephrology
DX: N18.4 Chronic kidney disease, stage 4 (severe) (principal)
CPT/HCPCS: 36415; 80069

== ENCOUNTER → 2020-05-23 15:37 | Outpatient (CLI) | payer MEDICARE, OTHER, SELFPAY ==
[2020-05-03 09:39] VITALS: BMI 41.2
[2020-05-23 17:43] LABS: Hematocrit 38.6 % (37-47); Mean Corp Hgb Conc 31.1 g/dL (32-36); Mean Corpuscular Hgb 29.6 pg (27.0-32.0); Mean Corpuscular Volume 95.3 fL (81-99); Mean Platelet Vol. 9.8 fl (6.2-12.0); Platelet Count 358 K/mm3 (150-450); RBC Distribution Width CV 15.2 % (11.6-14.6); RBC Distribution Width SD 52.9 fl (35.1-43.9); Red Blood Count 4.05 M/mm3 (4.2-5.4); White Blood Count 14.4 K/mm3 (4.4-11.0)
[2020-05-23 17:56] LABS: BNP,B-Type NATRIURETIC PEPTIDE 97.8 pg/mL (0-100)
[2020-05-23 18:08] LABS: AST(SGOT) 17 U/L (15-37); Alanine Aminotransfer ALT/SGPT 35 U/L (13-56); Albumin, Serum 3.6 g/dL (3.2-5.0); Alkaline Phosphatase 47 U/L (45-117); Bilirubin, Direct 0.15 mg/dL (0.00-0.30); Globulin 3.1 g/dL (2.2-4.2); Protein, Total 6.7 g/dL (6.4-8.2)
== END ==
PROVIDERS: PCP Internal Medicine; Referring Provider Internal Medicine Pulmonary Disease; Visit Provider Internal Medicine Pulmonary Disease
DX: J44.9 Chronic obstructive pulmonary disease, unspecified (principal); R06.00 Dyspnea, unspecified; Z79.899 Other long term (current) drug therapy
CPT/HCPCS: 36415; 80076; 83880; 85027

== ENCOUNTER 2020-06-01 17:23 | Observation (INO) | payer MEDICARE, OTHER, SELFPAY ==
[2020-05-03 09:39] VITALS: BMI 41.2
[2020-06-01] VITALS (9 sets, daily range): BP systolic 145–165; BP diastolic 67–82; PULSE 85–94; RESP 20–24; TEMP 36.6; O2SAT 80–97; BMI 39.4; BMI 40.6
[2020-06-01] MEDS: Oxymetazoline 0.05% 1 SPRAY SPRAY.BTL 2 SPRAY NASAL (17:40)
--- NOTE | 2020-06-01 17:40 | RAD_ITS ---
STUDY: X-RAY CHEST REASON FOR EXAM: Female, 69 years old. POSSIBLE FOREIGN BODY. TROUBLED BREATHING AND COUGHING TECHNIQUE: Single frontal view of the chest. COMPARISON: April 16, 2020 FINDINGS: The lungs are clear and expanded. There is no demonstrated pleural abnormality. Normal size heart. There are calcified mediastinal lymph nodes. Normal visualized pulmonary arteries. Normal visualized aortic arch and descending thoracic aorta. Moderate scoliosis. Normal visualized ribs, clavicles, and shoulders. There is no demonstrated abnormality of the visualized soft tissue structures of the upper abdomen. RAD/Chest 1 View (Portable) IMPRESSION: Post granulomatous disease. Scoliosis. No acute disease. Electronically Signed: Kemar Durán MD at 18:04 EDT , Service support ,
[2020-06-01] MEDS: Lidocaine 4% 5 ML Ampul 2 ML INHALATION (17:46)
--- NOTE | 2020-06-01 17:55 | ED.RN ---
md admin afrin at 1740 and llidocaine nasally at 1746. assisted while using scope. Patient tolerated well.
--- NOTE | 2020-06-01 18:07 | ED.VIS.GEN ---
History of Present Illness Chief Complaint: Foreign Body Informant: Patient, Family Narrative: Patient is a 69-year-old female who presents to the emergency department due to aspiration. She was eating fajitas whenever she started to choke. Whenever she arrived to the emerge department patient was in respiratory distress and having difficulty breathing. Per the the patient has had issues with this many times before in the past. She has required bronchoscopy with retrievals a few times before. Patient not having any difficulty handling secretions. She does have a discomfort in her throat/upper chest. She has been coughing since the incident. She is able to speak in few word sentences. Past Medical History - Allergies and Home Meds Allergies/Adverse Reactions: Allergies clindamycin Allergy (Verified 06/01/20 17:28) Rash ciprofloxacin Adverse Reaction (Mild, Verified 06/01/20 17:28) Upset Stomach amoxicillin trihydrate [From Augmentin] Adverse Reaction (Verified 06/01/20 20:43) Nausea also yeast infection morphine Adverse Reaction (Verified 06/01/20 17:28) Nausea potassium clavulanate [From Augmentin] Adverse Reaction (Verified 06/01/20 17:28) Nausea Prior records reviewed: Yes Surgical History: cholecystectomy, hysterectomy, total knee arthroplasty, - - Lumbar back surgery, foot surgery, Smoking Status: Former smoker - Family History Paternal Family History: Family History (Last Reviewed 06/01/20 @ 19:[address] Kassandra Mesa DO) Father Hypertension Colon cancer Cancer Mother Hypertension Heart disease Diabetes Family History: Reports: Cancer - lung cancer Maternal Family History: Family History (Last Reviewed 06/01/20 @ 19:[address] Kassandra Mesa DO) Father Hypertension Colon cancer Cancer Mother Hypertension Heart disease Diabetes Family History: Reports: COPD, Hypertension Sibling Family History: Family History (Last Reviewed 06/01/20 @ 19:[address] Kassandra Mesa DO) Father Hypertension Colon cancer Cancer Mother Hypertension Heart disease Diabetes Family History: Reports: Diabetes Review of Systems All systems negative except as indicated General: Denies: Chills, Fever, Sweats ENT: Reports: Sore throat. Denies: Rhinorrhea Cardiovascular: Reports: Chest pain. Denies: Palpitations Respiratory: Reports: Dyspnea, Cough Gastrointestinal: Denies: Abdominal pain, Nausea, Vomiting, Diarrhea Genitourinary: Denies: Dysuria, Hematuria, Frequency Musculoskeletal: Denies: Back pain, Extremity Pain Skin: Denies: Rash, Wounds Neurological: Denies: Headache, Weakness, Numbness Physical Exam Vital Signs/Narrative: Vital Signs Temp Pulse Resp BP Pulse Ox 06/01/20 17:45 22 H 95 06/01/20 17:24 97.9 F 94 21 H 165/82 H 80 Inital Vital Signs reviewed: Yes General: Well nourished, Well developed, Acute Distress - Patient coughing with increased work of breathing Head: Normocephalic, Atraumatic Eyes: Perrl, EOMI ENT: Moist mucous membranes, No rhinorrhea Neck: Supple, Nontender Cardiovascular: Regular rate, Regular rhythm, No murmurs Respiratory: Rhonchi, Wheezing, Decreased Air Movement. Negative for: No distress - Patient initially in acute distress Abdomen: Soft, Nontender, Nondistended, Normal bowel sounds Back: Nontender, Normal Inspection Extremities: Nontender, No edema Skin: Normal color, No rash Neurological: Alert, Normal Strength, Normal Sensation Diagnostic/Tx/Re-eval Chest X-Ray - ED: 1 View - No obvious foreign body appreciated., Read by ED Physician, Read by Radiologist - Medical Decision Making Patient presented to emerge department in respiratory distress from aspiration. Patient started on oxygen. She was able to cough and was moving air so the Heimlich maneuver was not performed. Using Afrin and lidocaine her left nostril was prepped and using a nasal bronchoscope was used to view the vocal cords which were unobstructed. Unable to pass 2 view of the trachea. With patient coughing she was able to bring up some of the food bolus. She also felt like some of it fell further down. After this her oxygen saturation came up and her breathing did improve. She still had some rhonchi and wheezing. I did call the on-call technical operations specialist who felt like she stabilized and that he will see her in the morning. Basic lab work obtained at that time and will bring to the hospital for further evaluation management. Since the episode patient has been stable and is starting to feel better at this time. She is handling secretions throughout ED stay. - Critical Care Time Critical care time (excluding procedures): 30-74 minutes, Discussing w/Patient &/or Family/Manager Desktop, Discussing w/Consultants, Arranging Admission or Transfer, Performing Direct Patient Care at Bedside ED Disposition - Plan for ED Patient: Disposition: Home or Assisted Living Diagnosis: Aspiration into airway, Respiratory distress
[2020-06-01 18:41] LABS: Absolute Neutrophil Count 9.1 X10^3/uL (2.0-7.7); Basophil# 0.07 X10^3/uL; Basophil% 0.6 % (0-1); Eosinophil# 0.22 X10^3/uL; Eosinophils% 1.8 % (0-5); Hematocrit 36.9 % (37-47); Hemoglobin 11.7 g/dL (12.0-15.0); Lymphocyte % 9.2 % (19-41); Mean Corp Hgb Conc 31.7 g/dL (32-36); Mean Corpuscular Hgb 29.7 pg (27.0-32.0); Mean Corpuscular Volume 93.7 fL (81-99); Mean Platelet Vol. 9.6 fl (6.2-12.0); Monocyte# 1.03 X10^3/uL; Monocyte% 8.6 % (0-10); NRBC Flagged by Analyzer 0 % (0-5); Neutrophil # 9.06 X10^3/uL (2.7-7.7); Neutrophil % 76.1 % (47-70); Platelet Count 260 K/mm3 (150-450); RBC Distribution Width CV 15.5 % (11.6-14.6); RBC Distribution Width SD 52.7 fl (35.1-43.9); Red Blood Count 3.94 M/mm3 (4.2-5.4); White Blood Count 11.9 K/mm3 (4.4-11.0)
[2020-06-01 19:00] LABS: Anion Gap 7 (5-15); BUN 48 mg/dL (7-18); BUN/Creat Ratio 23.6 RATIO (10-20); Calcium,Total 9.3 mg/dL (8.5-10.1); Chloride 111 mmol/L (98-107); Creatinine, Serum 2.03 mg/dL (0.55-1.02); EST Glomerular Filtration Rate 26 mL/min (>60); Est Glom Filt Rate - Afr Amer 31 mL/min (>60); Estimated Creatinine Clearance 18.79 ml/min; Glucose 190 mg/dL (74-106); Potassium 4.5 mmol/L (3.5-5.1); Sodium Level 142 mmol/L (136-145)
--- NOTE | 2020-06-01 19:09 | PCM.HP.STD ---
Problem List (1) Acute exacerbation of chronic obstructive airways disease with asthma Status: Acute (2) Aspiration into airway Status: Acute (3) Dysphagia Status: Chronic Qualifiers: Dysphagia type: pharyngoesophageal phase Qualified Code(s): R13.14 - Dysphagia, pharyngoesophageal phase (4) Chronic renal failure, stage 3 (moderate) Status: Chronic (5) Pulmonary hypertension Status: Chronic (6) Obstructive sleep apnea Status: Chronic (7) Noncompliance with CPAP treatment Status: Chronic Comment: quit wearing CPAP 2 years lorenzana (8) Atrial flutter with rapid ventricular response Status: Resolved (9) Right bundle branch block (RBBB) Status: Chronic (10) Paroxysmal atrial fibrillation Status: Chronic (11) Essential (primary) hypertension Status: Chronic (12) Hyperlipidemia Status: Chronic (13) Asthma Status: Chronic (14) Sarcoidosis Status: Chronic (15) Morbid obesity Status: Chronic (16) Diabetes mellitus type 2 in obese Status: Chronic (17) GERD (gastroesophageal reflux disease) Status: Chronic (18) Hyperuricemia Status: Chronic (19) Venous insufficiency of both lower extremities Status: Suspected History of Present Illness Date of Admission: 06/01/20 Chief Complaint: Wheezing and SOB after aspirating fajitas The patient is a 69 year old F with a past medical history of chronic respiratory failure with hypoxia, sarcoidosis, diabetes mellitus type 2, COPD, asthma, hyperlipidemia, chronic renal failure stage III, hypertension, allergic rhinitis, hypertension, CONCEPCION, noncompliance with CPAP and morbid obesity who presented to the emergency department at [facility] on 06/01/2020 complaining of choking on that he does which was associated with labored breathing and wheezing. She was 80% on room air in the emergency room however she chronically wears O2 at home. She has aspirated in the past and has had a modified barium swallow which showed an of thin liquids even with a chin tuck. She had oral pharyngeal dysphagia and also pharyngo-esophageal dysphagia at that time. The speech therapist recommended a better evaluation for lower esophageal disorder. She was not placed on thickened liquids or a mechanical soft diet. She tells me usually she can cough it up. Vital signs at arrival to the emergency room were temp 97.9, pulse rate 94, blood pressure 165/82, respiratory rate 21 and she was 80% saturated on room air and 95% saturated on a 2 L nasal cannula. Chest x-ray showed no acute disease such as pleural effusions, infiltrates or significant pulmonary vascular congestion. CBC showed a white blood cell count of 11.9, hemoglobin of 11.7, MCV and MHC were normal, and platelets were 260,000. BMP showed a sodium of 142, potassium of 4.5, chloride of 111 and a serum bicarb of 24. BUN was 48 and the creatinine is 2.03, up from 1.66 on 05/11/2020. She normally follows with Dr. Pacheco. Calcium was within normal limits and her troponin was less than 0.012. No significant ST or T wave changes on the EKG. The ER physician was in contact with Dr. Cano from pulmonary medicine who will see her in the morning. She is being admitted to the hospital with possible foreign body in the airway and acute exacerbation of COPD/asthma. She recently had a cardiac catheterization in early April 2020 and this showed nonobstructive coronaries. The ejection fraction was 60% and the PA pressure was 37/17 with an RV pressure of 36/3. Past Medical History Past Medical History (Chronic Problems): Chronic Problems (Last Reviewed 06/01/20 @ 19:[address] Kassandra Mesa DO) Dysphagia (Chronic) Chronic renal failure, stage 3 (moderate) (Chronic) Pulmonary hypertension (Chronic) Obstructive sleep apnea (Chronic) Noncompliance with CPAP treatment (Chronic) quit wearing CPAP 2 years lorenzana Morbid obesity (Chronic) Diabetes mellitus type 2 in obese (Chronic) GERD (gastroesophageal reflux disease) (Chronic) Hyperuricemia (Chronic) Right bundle branch block (RBBB) (Chronic) Paroxysmal atrial fibrillation (Chronic) Essential (primary) hypertension (Chronic) Hyperlipidemia (Chronic) Asthma (Chronic) Sarcoidosis (Chronic) Medical History: Medical History (Last Reviewed 06/01/20 @ 19:[address] Kassandra Mesa DO) Right bundle branch block (RBBB) (Chronic) I45.10 Paroxysmal atrial fibrillation (Chronic) I48.0 Essential (primary) hypertension (Chronic) I10 Hyperlipidemia (Chronic) E78.5 Asthma (Chronic) J45.909 Sarcoidosis (Chronic) D86.9 Chronic obstructive lung disease J44.9 mild GERD (gastroesophageal reflux disease) K21.9 Leukocytosis D72.829 Lung abscess J85.2 Obesity (BMI 30-39.9) E66.9 Obstructive sleep apnea G47.33 On home O2 Z99.81 Osteopenia M85.80 Type 2 diabetes mellitus E11.9 Atrial flutter with rapid ventricular response (Resolved) Onset Date: 04/16/20 I48.92 Pneumonia J18.9 Allergies clindamycin Allergy (Verified 06/01/20 17:28) Rash ciprofloxacin Adverse Reaction (Mild, Verified 06/01/20 17:28) Upset Stomach amoxicillin trihydrate [From Augmentin] Adverse Reaction (Verified 06/01/20 17:28) Nausea morphine Adverse Reaction (Verified 06/01/20 17:28) Nausea potassium clavulanate [From Augmentin] Adverse Reaction (Verified 06/01/20 17:28) Nausea Home Medications: Ambulatory Orders Medication Instructions Recorded Albuterol Aerosols [Ventolin 2.5 mg INHALATION Q6H PRN PRN 07/07/14 Aerosols] Fenofibric Acid (Choline) 135 mg PO DAILY 07/07/14 [Trilipix] Loratadine [Claritin] 10 mg PO DAILY 07/07/14 Losartan Potassium [Cozaar] 50 mg PO DAILY 07/07/14 Montelukast [Singulair] 10 mg PO QHS 07/07/14 Alendronate Sodium [Fosamax] 70 mg PO MO 06/21/17 Fluticasone 0.05% [Flonase Nasal 1 spray NASAL DAILY PRN PRN 06/21/17 Erath] Fluticasone/Salmeterol [Advair 1 puff INHALATION BID 06/21/17 500/50 Mcg Diskus] Insulin Detemir [Levemir FlexPen] 40 units SUBCUT QHS 06/21/17 Pantoprazole Sodium [Protonix] 40 mg PO DAILY 06/21/17 Sour Scott Extract [Tart Scott 1,000 mg PO DAILY 01/07/18 Extract] Febuxostat [Uloric] 40 mg PO DAILY 12/30/18 Cholecalciferol (VIT D3) [Vitamin 1,000 unit PO DAILY 04/16/20 D3] clopidogrel 75 mg tablet 75 mg PO DAILY #30 tab 04/25/20 fluconazole 150 mg tablet 150 mg PO Q3D 04/25/20 triamterene 37.5 1 tab PO DAILY 04/25/20 mg-hydrochlorothiazide 25 mg tablet amlodipine 5 mg tablet 5 mg PO DAILY #90 tab 05/04/20 Cyanocobalamin (Vitamin B-12) 1,000 mcg PO DAILY 06/01/20 [Vitamin B-12] Diclofenac Sodium [Voltaren] 100 gm TP DAILY 06/01/20 Macitentan [Opsumit] 10 mg PO DAILY 06/01/20 Tiotropium [place] [Spiriva 2 puff INHALATION DAILY 06/01/20 Respimat] Surgical History: Surgical History (Last Reviewed 06/01/20 @ 19:[address] Kassandra Mesa DO) History of cholecystectomy Z90.49 History of knee replacement procedure of left knee Z96.652 History of laminectomy Z98.890 History of right and left heart catheterization Onset Date: 05/04/20 Z98.890 Surgical History: cholecystectomy, hysterectomy, total knee arthroplasty, - - Lumbar back surgery, foot surgery, Psychiatric History: No pertinent psych hx PHARMACY CUSTOMER CARE SPECIALIST History: No pertinent PHARMACY CUSTOMER CARE SPECIALIST history Lives: Spouse/ Significant Other Smoking Status: Former smoker Tobacco Use: Cigarettes Alcohol: None Drugs: None - *Family History Paternal Family History: Family History (Last Reviewed 06/01/20 @ 19:[address] Kassandra Mesa DO) Father Hypertension Colon cancer Cancer Mother Hypertension Heart disease Diabetes History Items: Cancer - lung cancer Maternal Family History: Family History (Last Reviewed 06/01/20 @ 19:[address] Kassandra Mesa DO) Father Hypertension Colon cancer Cancer Mother Hypertension Heart disease Diabetes History Items: COPD, Hypertension Sibling Family History: Family History (Last Reviewed 06/01/20 @ 19:[address] Kassandra Mesa DO) Father Hypertension Colon cancer Cancer Mother Hypertension Heart disease Diabetes History Items: Diabetes Review of Systems Constitutional: Denies: Anorexia, Chills, Fever, Weight Change HEENT: Denies: Head Aches, Sinus Congestion, Sinus Drainage, Sore Throat Cardiovascular: Reports: Edema - Chronic. Denies: Chest Pain, Light Headedness, Palpitations, Syncope Respiratory: Reports: Shortness of Breath, Shortness of breath at rest. Denies: Cough, Sputum production Gastrointestinal: Denies: Abdominal Pain, Constipation, Diarrhea, Hematemesis, Nausea, Vomiting Genitourinary: Denies: Dysuria Musculoskeletal: Denies: Joint Pain, Joint Tenderness Skin: Denies: Jaundice, Rash, Wounds Neurological: Reports: Difficulty swallowing. Denies: Slurred speech, Focal weakness, Numbness, Tingling, Tremor, Seizures Psychiatric: Denies: Anxiety, Depression, Homicidal Ideations, Suicidal Ideations Hematologic/ Lymphatic: Denies: Easy Bruising, Easy Bleeding, Hx of blood clot VTE Information - Inpt Only VTE Present on Admission: No VTE Mechan Device Prophylaxis: Knee High PAULIE Hose VTE Pharm Prophylaxis ordered?: Yes Patient Problems: Active and Suspected Problems (Last Reviewed 06/01/20 @ 19:[address] Kassandra Mesa, DO) Acute exacerbation of chronic obstructive airways disease with asthma (Acute) Aspiration into airway (Acute) Venous insufficiency of both lower extremities (Suspected) - Physical Exam Vitals/I&O's: Vital Signs Temp Pulse Resp BP Pulse Ox 97.9 F 86 22 H 165/82 H 94 06/01/20 17:24 06/01/20 18:35 06/01/20 18:35 06/01/20 17:24 06/01/20 18:35 Oxygen Flow Rate (L/min) 3 Oxygen Delivery Method Nasal Cannula Weight: 201 lb 15.095 oz Body Mass Index (BMI) 39.4 General: Alert, Oriented x3, Cooperative, - - audibly wheezing when I walked in the room and with a barky cough HEENT: Atraumatic, PERRLA, EOMI, Normocephalic Neck: Supple, No JVD, Negative Carotid Bruits Lungs: Clear to auscultation, Short of Breath, Tachypneic, Wheezes - Diffuse wheezing in all lung marie. No accessory muscle use, no conversational dyspnea and she is able to speak in full sentences Cardiovascular: Regular rate, Regular Rhythm, Normal S1, Normal S2, No murmurs, No Gallop Abdomen: Bowel Sounds Present, Soft, Non Tender, Distended - Mildly distended and tympanic-possibly secondary to aerophagia, Obese Extremities: No clubbing, No cyanosis, Capillary Refill Less than 3 Seconds, No Calf Tenderness, Edema - She has pitting edema of both lower extremities to approximately mid welch, Peripheral Pulses Normal Skin: No rashes, No breakdown Musculoskeletal: No Muscle Wasting, Arthritic Changes Neurological: Cranial nerves II-XII grossly intact, Neuro grossly intact Psych/Mental Status: Normal Affect, Appropriate Laboratory Results 06/01/20 18:30: WBC 11.9 H, RBC 3.94 L, Hgb 11.7 L, Hct 36.9 L, MCV 93.7, MCH 29.7, MCHC 31.7 L, RDW Std Deviation 52.7 H, RDW Coeff of Jazzmine 15.5 H, Plt Count 260, MPV 9.6, Immature Gran % (Auto) 3.700 H, Neut % (Auto) 76.1 H, Lymph % (Auto) 9.2 L, [place] % (Auto) 8.6, Eos % (Auto) 1.8, Baso % (Auto) 0.6, Absolute Neuts (auto) 9.1 H, Absolute Lymphs (auto) 1.10, Nucleated RBC % 0 06/01/20 18:30: Sodium 142, Potassium 4.5, Chloride 111 H, Carbon Dioxide 24.0, Anion Gap 7, BUN 48 H, Creatinine 2.03 H, Estim Creat Clear Calc 18.79, Est GFR (MDRD) Af Amer 31 L, Est GFR (MDRD) Non-Af 26 L, BUN/Creatinine Ratio 23.6 H, Glucose 190 H, Calcium 9.3, Troponin I < 0.015 Assessment/Plan All Active Problems (Last Reviewed 06/01/20 @ 19:[address] Kassandra Mesa, ) Acute exacerbation of chronic obstructive airways disease with asthma (Acute) Aspiration into airway (Acute) Atrial flutter with rapid ventricular response (Resolved 04/16/20) Impressions 1. Acute exacerbation of COPD/asthma secondary to aspiration of fajitas in a pt with prior hx of aspiration and also with hx of oral pharyngeal dysphasia and pharyngoesophageal dysfunction on a modified barium swallow in January 2018. 2. Aspiration with possible retained foreign body 3. Respiratory insufficiency with hypoxia-patient has chronic oxygen at home and the pulse ox was checked on room air and was 80%. She was 95% on a 2 L nasal cannula. 4. Oral pharyngeal and pharyngoesophageal dysphagia. Not on any type of modified diet. 5. Obstructive sleep apnea-not compliant with CPAP 6. Mild pulmonary hypertension-she states that Dr. Delgado is putting her on a medication to treat pulmonary hypertension. 7. elevated creatinine over baseline - has CRF stage III and follows with Dr. Ribeiro 8. Chronic medical conditions: Diabetes mellitus type 2/morbid obesity/essential hypertension/hyperlipidemia/sarcoidosis/chronic respiratory failure on home oxygen/recent paroxysmal atrial fibrillation with rapid ventricular response in March 2020/GERD/hyperuricemia Admit to the hospital and keep n.p.o. Consult Dr. Cano-he was notified by the emergency room physician and he will see her tomorrow IV fluids IV steroids [id number] aerosols Check a hemoglobin X0x-miz last one in the computer was from 2017 Check a magnesium and phosphorus Check blood sugars every 4 hours in light of high-dose intravenous steroids with Humalog sliding scale insulin. Hold Lantus. Hold all oral medications at this time PA and lateral chest x-ray in the a.m. Supplemental oxygen as needed DVT prophylaxis with heparin 5000 units subcu every 8 hours Protonix 40 mg IV daily for GERD Continuous pulse ox Repeat lab in the a.m. Inpatient E&M: 64127 Init Hosp L3
--- NOTE | 2020-06-01 21:03 | NURSING ---
cps called for breathing treatment for pt
[2020-06-01] MEDS: 0.9% Normal Saline 1,000 ML 80 ML IV (21:05)
[2020-06-01] MEDS: 0.9% Saline Lock 10 ML Syringe IV (21:08)
[2020-06-01] MEDS: MethylPREDNISolone 125 MG/2 ML Vial 60 MG IV (21:08)
--- NOTE | 2020-06-01 21:14 | NURSING ---
cps in room with pt
[2020-06-01] MEDS: Ipratropium/Albuterol Sulfate 3 ML AMPUL.NEB INHALATION (21:15)
[2020-06-01 22:16] LABS: Bedside Glucose 205 mg/dL (70-110)
[2020-06-02] VITALS (14 sets, daily range): BP systolic 116–132; BP diastolic 49–67; PULSE 82–103; RESP 17–22; TEMP 36.2–36.8; O2SAT 94–98; BMI 40.6
[2020-06-02] MEDS: Ipratropium/Albuterol Sulfate 3 ML AMPUL.NEB INHALATION ×3 (00:34→11:32)
[2020-06-02] MEDS: Insulin Lispro 100 UNIT/ML INSULN.PEN SC ×3 (02:06→10:26)
[2020-06-02 02:26] LABS: Bedside Glucose 356 mg/dL (70-110)
[2020-06-02 05:40] LABS: Bedside Glucose 325 mg/dL (70-110)
[2020-06-02] MEDS: 0.9% Saline Lock 10 ML Syringe IV ×2 (05:40→10:17)
[2020-06-02] MEDS: MethylPREDNISolone 125 MG/2 ML Vial 60 MG IV (05:40)
[2020-06-02 06:09] LABS: Hematocrit 38.4 % (37-47); Hemoglobin 11.7 g/dL (12.0-15.0); Mean Corp Hgb Conc 30.5 g/dL (32-36); Mean Corpuscular Hgb 29.7 pg (27.0-32.0); Mean Corpuscular Volume 97.5 fL (81-99); Mean Platelet Vol. 9.6 fl (6.2-12.0); Platelet Count 205 K/mm3 (150-450); RBC Distribution Width CV 15.7 % (11.6-14.6); RBC Distribution Width SD 55.3 fl (35.1-43.9); Red Blood Count 3.94 M/mm3 (4.2-5.4); White Blood Count 10.8 K/mm3 (4.4-11.0)
--- NOTE | 2020-06-02 06:15 | PCM.CONS.PUL ---
Reason for Consult Date of Consultation: 06/02/20 Reason for Consultation: Possible foreign body aspiration History of Present Illness: The patient is a 69 year old F [] Past Medical History Past Medical History (Chronic Problems): Chronic Problems (Last Reviewed 06/01/20 @ 19:[address] Kassandra Mesa DO) Dysphagia (Chronic) Chronic renal failure, stage 3 (moderate) (Chronic) Pulmonary hypertension (Chronic) Obstructive sleep apnea (Chronic) Noncompliance with CPAP treatment (Chronic) quit wearing CPAP 2 years [place] Morbid obesity (Chronic) Diabetes mellitus type 2 in obese (Chronic) GERD (gastroesophageal reflux disease) (Chronic) Hyperuricemia (Chronic) Right bundle branch block (RBBB) (Chronic) Paroxysmal atrial fibrillation (Chronic) Essential (primary) hypertension (Chronic) Hyperlipidemia (Chronic) Asthma (Chronic) Sarcoidosis (Chronic) Medical History: Medical History (Last Reviewed 06/01/20 @ 19:[address] Kassandra Mesa DO) Right bundle branch block (RBBB) (Chronic) I45.10 Paroxysmal atrial fibrillation (Chronic) I48.0 Essential (primary) hypertension (Chronic) I10 Hyperlipidemia (Chronic) E78.5 Asthma (Chronic) J45.909 Sarcoidosis (Chronic) D86.9 Chronic obstructive lung disease J44.9 mild GERD (gastroesophageal reflux disease) K21.9 Leukocytosis D72.829 Lung abscess J85.2 Obesity (BMI 30-39.9) E66.9 Obstructive sleep apnea G47.33 On home O2 Z99.81 Osteopenia M85.80 Type 2 diabetes mellitus E11.9 Atrial flutter with rapid ventricular response (Resolved) Onset Date: 04/16/20 I48.92 Pneumonia J18.9 Allergies clindamycin Allergy (Verified 06/01/20 17:28) Rash ciprofloxacin Adverse Reaction (Mild, Verified 06/01/20 17:28) Upset Stomach amoxicillin trihydrate [From Augmentin] Adverse Reaction (Verified 06/01/20 20:43) Nausea also yeast infection morphine Adverse Reaction (Verified 06/01/20 17:28) Nausea potassium clavulanate [From Augmentin] Adverse Reaction (Verified 06/01/20 17:28) Nausea Home Medications: Ambulatory Orders Medication Instructions Recorded Albuterol Aerosols [Ventolin 2.5 mg INHALATION Q6H PRN PRN 07/07/14 Aerosols] Fenofibric Acid (Choline) 135 mg PO QHS 07/07/14 [Trilipix] Loratadine [Claritin] 10 mg PO DAILY 07/07/14 Losartan Potassium [Cozaar] 50 mg PO DAILY 07/07/14 Montelukast [Singulair] 10 mg PO QHS 07/07/14 Alendronate Sodium [Fosamax] 70 mg PO MO 06/21/17 Fluticasone 0.05% [Flonase Nasal 1 spray NASAL DAILY PRN PRN 06/21/17 Remus] Fluticasone/Salmeterol [Advair 1 puff INHALATION BID 06/21/17 500/50 Mcg Diskus] Insulin Detemir [Levemir FlexPen] 40 units SUBCUT QHS 06/21/17 Pantoprazole Sodium [Protonix] 40 mg PO DAILY 06/21/17 Sour Scott Extract [Tart Scott 1,000 mg PO DAILY 01/07/18 Extract] Febuxostat [Uloric] 40 mg PO DAILY 12/30/18 Cholecalciferol (VIT D3) [Vitamin 1,000 unit PO DAILY 04/16/20 D3] fluconazole 150 mg tablet 150 mg PO PRN PRN 04/25/20 triamterene 37.5 1 tab PO DAILY 04/25/20 mg-hydrochlorothiazide 25 mg tablet amlodipine 5 mg tablet 5 mg PO DAILY #90 tab 05/04/20 Cyanocobalamin (Vitamin B-12) 1,000 mcg PO DAILY 06/01/20 [Vitamin B-12] Diclofenac Sodium [Voltaren] 100 gm TP DAILY PRN 06/01/20 Macitentan [Opsumit] 10 mg PO DAILY 06/01/20 Tiotropium [place] [Spiriva 2 puff INHALATION DAILY 06/01/20 Respimat] Surgical History: Surgical History (Last Reviewed 06/01/20 @ 19:[address] 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 Kassandra Mesa DO) Father Hypertension Colon cancer Cancer Mother Hypertension Heart disease Diabetes History Items: Cancer - lung cancer Maternal Family History: Family History (Last Reviewed 06/01/20 @ 19:[address] Kassandra Mesa DO) Father Hypertension Colon cancer Cancer Mother Hypertension Heart disease Diabetes History Items: COPD, Hypertension Sibling Family History: Family History (Last Reviewed 06/01/20 @ 19:[address] Kassandra Mesa DO) Father Hypertension Colon cancer Cancer Mother Hypertension Heart disease Diabetes History Items: Diabetes Patient Problems: Active and Suspected Problems (Last Reviewed 06/01/20 @ 19:[address] Kassandra Mesa DO) Acute exacerbation of chronic obstructive airways disease with asthma (Acute) Aspiration into airway (Acute) Venous insufficiency of both lower extremities (Suspected) Respiratory distress (Acute) - Physical Exam Vitals/I&O's: Vital Signs Temp Pulse Resp BP Pulse Ox 98 F 89 17 129/49 H 94 06/02/20 02:18 06/02/20 03:05 06/02/20 03:05 06/02/20 02:18 06/02/20 02:18 Oxygen Flow Rate (L/min) 3 Oxygen Delivery Method Nasal Cannula Weight: 207 lb 12.8 oz Body Mass Index (BMI) 40.6 Laboratory Results 06/01/20 18:30: WBC 11.9 H, RBC 3.94 L, Hgb 11.7 L, Hct 36.9 L, MCV 93.7, MCH 29.7, MCHC 31.7 L, RDW Std Deviation 52.7 H, RDW Coeff of Jazzmine 15.5 H, Plt Count 260, MPV 9.6, Immature Gran % (Auto) 3.700 H, Neut % (Auto) 76.1 H, Lymph % (Auto) 9.2 L, [place] % (Auto) 8.6, Eos % (Auto) 1.8, Baso % (Auto) 0.6, Absolute Neuts (auto) 9.1 H, Absolute Lymphs (auto) 1.10, Nucleated RBC % 0 06/01/20 18:30: Sodium 142, Potassium 4.5, Chloride 111 H, Carbon Dioxide 24.0, Anion Gap 7, BUN 48 H, Creatinine 2.03 H, Estim Creat Clear Calc 18.79, Est GFR (MDRD) Af Amer 31 L, Est GFR (MDRD) Non-Af 26 L, BUN/Creatinine Ratio 23.6 H, Glucose 190 H, Calcium 9.3, Troponin I < 0.015 06/01/20 22:07: POC Glucose 205 H 06/02/20 02:05: POC Glucose 356 H 06/02/20 05:27: POC Glucose 325 H 06/02/20 05:50: WBC 10.8, RBC 3.94 L, Hgb 11.7 L, Hct 38.4, MCV 97.5, MCH 29.7, MCHC 30.5 L, RDW Std Deviation 55.3 H, RDW Coeff of Jazzmine 15.7 H, Plt Count 205, MPV 9.6 06/02/20 05:50: Sodium Pending, Potassium Pending, Chloride Pending, Carbon Dioxide Pending, Anion Gap Pending, BUN Pending, Creatinine Pending, Est GFR (MDRD) Af Amer Pending, Est GFR (MDRD) Non-Af Pending, BUN/Creatinine Ratio Pending, Glucose Pending, Calcium Pending, Phosphorus Pending, Magnesium Pending, Total Bilirubin Pending, AST Pending, ALT Pending, Alkaline Phosphatase Pending, Total Protein Pending, Albumin Pending Current Medications Albuterol Sulfate (Ventolin Aerosols) 2.5 mg INHALATION Q2H PRN PRN PRN Reason: Shortness of Breath/Wheezing Albuterol/Ipratropium (Duoneb) 3 ml INHALATION Q4H.RT [facility] Last Admin: 06/02/20 03:05 Dose: 3 ml Documented by: Dextrose (D50w Syringe) 0 gm IV X1 PRN; Protocol PRN Reason: Hypoglycemia Fluticasone Propionate (Flonase Nasal [place]) 1 spray NASAL DAILY PRN PRN PRN Reason: CONGESTION Glucagon () 1 mg IM .X1 PRN PRN Reason: Hypoglycemia Heparin Sodium (Porcine) (Heparin Na) 5,000 unit SC Q8 [facility] Last Admin: 06/02/20 03:10 Dose: Not Given Documented by: Sodium Chloride () 1,000 mls @ 80 mls/hr IV .[id number] BENNIE Last Admin: 06/01/20 21:05 Dose: 80 mls/hr Documented by: Pantoprazole Sodium 40 mg/ (Sodium Chloride) 110 mls @ 330 mls/hr IV Q24 BENNIE Sodium Chloride () 250 mls @ 15 mls/hr IV .[id number] PRN PRN Reason: Saline Flush Insulin Human Lispro (Humalog Kwikpen (Bkc)) 0 unit SC Q4 BENNIE; Protocol Last Admin: 06/02/20 05:34 Dose: 3 units Documented by: Methylprednisolone (Solu-Medrol) 60 mg IV Q8 BENNIE Last Admin: 06/02/20 05:40 Dose: 60 mg Documented by: Morphine Sulfate () 2 mg IV Q3H PRN PRN PRN Reason: Pain Score 6-10/10 Prochlorperazine Edisylate (Compazine Iv) 5 mg IV Q4H PRN PRN PRN Reason: Breakthrough nausea/vomiting Sodium Chloride () 10 - 40 ml IV UD PRN PRN Reason: SALINE FLUSH Last Admin: 06/02/20 05:40 Dose: 10 ml Documented by: Assessment/Plan All Active Problems (Last Reviewed 06/01/20 @ 19:[address] Kassandra Mesa, DO) Acute exacerbation of chronic obstructive airways disease with asthma (Acute) Aspiration into airway (Acute) Respiratory distress (Acute) Atrial flutter with rapid ventricular response (Resolved 04/16/20)
[2020-06-02 06:52] LABS: ALB/GLOB Ratio 1.1 RATIO (0.9-2.4); AST(SGOT) 22 U/L (15-37); Alanine Aminotransfer ALT/SGPT 40 U/L (13-56); Albumin, Serum 3.4 g/dL (3.2-5.0); Alkaline Phosphatase 43 U/L (45-117); Anion Gap 9 (5-15); BUN 47 mg/dL (7-18); BUN/Creat Ratio 24.5 RATIO (10-20); Calcium,Total 8.9 mg/dL (8.5-10.1); Chloride 110 mmol/L (98-107); Creatinine, Serum 1.92 mg/dL (0.55-1.02); EST Glomerular Filtration Rate 28 mL/min (>60); Est Glom Filt Rate - Afr Amer 33 mL/min (>60); Estimated Creatinine Clearance 19.86 ml/min; Globulin 3.2 g/dL (2.2-4.2); Glucose 342 mg/dL (74-106); Magnesium 2.1 mg/dL (1.6-2.6); Phosphorus 3.7 mg/dL (2.5-4.9); Potassium 4.9 mmol/L (3.5-5.1); Protein, Total 6.6 g/dL (6.4-8.2); Sodium Level 141 mmol/L (136-145)
--- NOTE | 2020-06-02 07:13 | PCM.CONS.PUL ---
Reason for Consult Date of Consultation: 06/02/20 Reason for Consultation: Possible foreign body aspiration History of Present Illness: The patient is a 69-year-old female, with a history as outlined below, who presented to the emergency department on June 01 with complaints of shortness of breath which developed after a self-reported aspiration event. The patient was apparently eating [place] fajitas when she aspirated on a piece of food. The patient subsequently developed shortness of breath and coughing. The patient apparently has a history of both COPD and asthma, which is managed by Dr. Delgado. She was last seen by her primary printing equipment mechanic apprentice last week. She reports that she has a history of recurrent aspiration and has underwent bronchoscopy by her printing equipment mechanic apprentice in the past. At one point, she apparently had a small pea removed from her airway. In addition to the aforementioned, the patient does report having a history of obstructive sleep apnea but has been intolerant of nocturnal Pap therapy. Therefore, she only utilizes supplemental oxygen on a nightly basis. On presentation to the emergency department, the patient was noted to be afebrile and hemodynamically stable. Her initial oxygen saturation was 80% on room air. Laboratory evaluation revealed a mildly elevated white blood cell count. Chemistry profile revealed a creatinine of 2.0, which is stable for the patient. Plain film chest x-ray revealed no acute cardiopulmonary process. Due to the patient's oxygen need, symptomatic shortness of breath and wheezing, the decision was made to admit her to the hospital for potential bronchoscopic airway evaluation. Past Medical History Past Medical History (Chronic Problems): Chronic Problems (Last Reviewed 06/01/20 @ 19:[address] Kassandra Mesa DO) Dysphagia (Chronic) Chronic renal failure, stage 3 (moderate) (Chronic) Pulmonary hypertension (Chronic) Obstructive sleep apnea (Chronic) Noncompliance with CPAP treatment (Chronic) quit wearing CPAP 2 years [place] Morbid obesity (Chronic) Diabetes mellitus type 2 in obese (Chronic) GERD (gastroesophageal reflux disease) (Chronic) Hyperuricemia (Chronic) Right bundle branch block (RBBB) (Chronic) Paroxysmal atrial fibrillation (Chronic) Essential (primary) hypertension (Chronic) Hyperlipidemia (Chronic) Asthma (Chronic) Sarcoidosis (Chronic) Medical History: Medical History (Last Reviewed 06/01/20 @ 19:[address] Kassandra Mesa DO) Right bundle branch block (RBBB) (Chronic) I45.10 Paroxysmal atrial fibrillation (Chronic) I48.0 Essential (primary) hypertension (Chronic) I10 Hyperlipidemia (Chronic) E78.5 Asthma (Chronic) J45.909 Sarcoidosis (Chronic) D86.9 Chronic obstructive lung disease J44.9 mild GERD (gastroesophageal reflux disease) K21.9 Leukocytosis D72.829 Lung abscess J85.2 Obesity (BMI 30-39.9) E66.9 Obstructive sleep apnea G47.33 On home O2 Z99.81 Osteopenia M85.80 Type 2 diabetes mellitus E11.9 Atrial flutter with rapid ventricular response (Resolved) Onset Date: 04/16/20 I48.92 Pneumonia J18.9 Allergies clindamycin Allergy (Verified 06/01/20 17:28) Rash ciprofloxacin Adverse Reaction (Mild, Verified 06/01/20 17:28) Upset Stomach amoxicillin trihydrate [From Augmentin] Adverse Reaction (Verified 06/01/20 20:43) Nausea also yeast infection morphine Adverse Reaction (Verified 06/01/20 17:28) Nausea potassium clavulanate [From Augmentin] Adverse Reaction (Verified 06/01/20 17:28) Nausea Home Medications: Ambulatory Orders Medication Instructions Recorded Albuterol Aerosols [Ventolin 2.5 mg INHALATION Q6H PRN PRN 07/07/14 Aerosols] Fenofibric Acid (Choline) 135 mg PO QHS 07/07/14 [Trilipix] Loratadine [Claritin] 10 mg PO DAILY 07/07/14 Montelukast [Singulair] 10 mg PO QHS 07/07/14 Alendronate Sodium [Fosamax] 70 mg PO MO 06/21/17 Fluticasone 0.05% [Flonase Nasal 1 spray NASAL DAILY PRN PRN 06/21/17 [place]] Fluticasone/Salmeterol [Advair 1 puff INHALATION BID 06/21/17 500/50 Mcg Diskus] Insulin Detemir [Levemir FlexPen] 40 units SUBCUT QHS 06/21/17 Pantoprazole Sodium [Protonix] 40 mg PO DAILY 06/21/17 Sour Scott Extract [Tart Scott 1,000 mg PO DAILY 01/07/18 Extract] Febuxostat [Uloric] 40 mg PO DAILY 01/31/19 Cholecalciferol (VIT D3) [Vitamin 1,000 unit PO DAILY 04/16/20 D3] fluconazole 150 mg tablet 150 mg PO PRN PRN 04/25/20 Cyanocobalamin (Vitamin B-12) 1,000 mcg PO DAILY 06/01/20 [Vitamin B-12] Diclofenac Sodium [Voltaren] 100 gm TP DAILY PRN 06/01/20 Macitentan [Opsumit] 10 mg PO DAILY 06/01/20 Tiotropium [place] [Spiriva 2 puff INHALATION DAILY 06/01/20 Respimat] Amlodipine Besylate [Norvasc] 5 mg PO DAILY #90 tab 06/02/20 Cefdinir 300 mg PO BID #6 cap 06/02/20 Losartan Potassium [Cozaar] 50 mg PO DAILY #0 06/02/20 Prednisone 10 mg PO DAILY #30 tab 06/02/20 Triamterene/Hydrochlorothiazid 1 tab PO DAILY #0 06/02/20 [Triamterene-Hctz 37.5-25 mg Tb] Surgical History: Surgical History (Last Reviewed 06/01/20 @ 19:[address] 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 Kassandra Mesa DO) Father Hypertension Colon cancer Cancer Mother Hypertension Heart disease Diabetes History Items: Cancer - lung cancer Maternal Family History: Family History (Last Reviewed 06/01/20 @ 19:[address] Kassandra Mesa DO) Father Hypertension Colon cancer Cancer Mother Hypertension Heart disease Diabetes History Items: COPD, Hypertension Sibling Family History: Family History (Last Reviewed 06/01/20 @ 19:[address] Kassandra Mesa DO) Father Hypertension Colon cancer Cancer Mother Hypertension Heart disease Diabetes History Items: Diabetes Review of Systems Constitutional: Denies: Chills, Fever, Weight Change HEENT: Reports: Difficulty Swallowing, Dysphasia Cardiovascular: Denies: Chest Pain, Palpitations Respiratory: Reports: Cough, Shortness of Breath, Wheezing Gastrointestinal: Denies: Abdominal Pain, Nausea, Vomiting Genitourinary: Denies: Dysuria Musculoskeletal: Denies: Joint Pain, Joint Tenderness Skin: Denies: Rash, Wounds Neurological: Denies: Numbness, Tingling, Focal weakness Psychiatric: Denies: Anxiety, Depression, Homicidal Ideations, Suicidal Ideations Hematologic/ Lymphatic: Denies: Easy Bruising, Easy Bleeding Objective: The patient's most recent lab work, culture data and imaging studies have all been personally reviewed. - Physical Exam Vitals/I&O's: Vital Signs Temp Pulse Resp BP Pulse Ox 98 F 89 17 129/49 H 94 06/02/20 02:18 06/02/20 03:05 06/02/20 03:05 06/02/20 02:18 06/02/20 02:18 Oxygen Flow Rate (L/min) 3 Oxygen Delivery Method Nasal Cannula Weight: 207 lb 12.8 oz Body Mass Index (BMI) 40.6 Intake and Output for Last 24 Hours 05/31/20 06/01/20 06/02/20 23:59 23:59 23:59 Output Total 300 / 300 Balance -300 / -300 General: Alert, Cooperative, No apparent distress, - - Sitting in bedside recliner HEENT: Atraumatic, PERRLA, Normocephalic Oral: No Gingival or Mucosal Lesions/ Ulcerations Neck: Supple, No Nodes, Trachea Midline Lungs: Diminished, Wheezes - R>L Cardiovascular: Regular rate, Regular Rhythm Abdomen: Bowel Sounds Present, Soft, Non Tender, Obese Extremities: No clubbing, No cyanosis, No edema Skin: No breakdown Musculoskeletal: No Tenderness to Palpation of Joints or Extremities, No Muscle Wasting Lymphatic: No Cervical, Supraclavicular, or Inguinal Adenopathy Neurological: Cranial nerves II-XII grossly intact, Neuro grossly intact Psych/Mental Status: Alert and oriented to time, place, person, mood and affect Labs (Last 48 Hours) 06/01/20 06/01/20 06/01/20 18:30 18:30 22:07 WBC 11.9 H RBC 3.94 L Hgb 11.7 L Hct 36.9 L MCV 93.7 MCH 29.7 MCHC 31.7 L RDW Std Deviation 52.7 H RDW Coeff of Jazzmine 15.5 H Plt Count 260 MPV 9.6 Immature Gran % (Auto) 3.700 H Neut % (Auto) 76.1 H Lymph % (Auto) 9.2 L [place] % (Auto) 8.6 Eos % (Auto) 1.8 Baso % (Auto) 0.6 Absolute Neuts (auto) 9.1 H Absolute Lymphs (auto) 1.10 Nucleated RBC % 0 Sodium 142 Potassium 4.5 Chloride 111 H Carbon Dioxide 24.0 Anion Gap 7 BUN 48 H Creatinine 2.03 H Estim Creat Clear Calc 18.79 Est GFR (MDRD) Af Amer 31 L Est GFR (MDRD) Non-Af 26 L BUN/Creatinine Ratio 23.6 H Glucose 190 H Calcium 9.3 Phosphorus Magnesium Total Bilirubin AST ALT Alkaline Phosphatase Troponin I < 0.015 Total Protein Albumin Globulin Albumin/Globulin Ratio POC Glucose 205 H 06/02/20 06/02/20 06/02/20 02:05 05:27 05:50 WBC 10.8 RBC 3.94 L Hgb 11.7 L Hct 38.4 MCV 97.5 MCH 29.7 MCHC 30.5 L RDW Std Deviation 55.3 H RDW Coeff of Jazzmine 15.7 H Plt Count 205 MPV 9.6 Immature Gran % (Auto) Neut % (Auto) Lymph % (Auto) [place] % (Auto) Eos % (Auto) Baso % (Auto) Absolute Neuts (auto) Absolute Lymphs (auto) Nucleated RBC % Sodium Potassium Chloride Carbon Dioxide Anion Gap BUN Creatinine Estim Creat Clear Calc Est GFR (MDRD) Af Amer Est GFR (MDRD) Non-Af BUN/Creatinine Ratio Glucose Calcium Phosphorus Magnesium Total Bilirubin AST ALT Alkaline Phosphatase Troponin I Total Protein Albumin Globulin Albumin/Globulin Ratio POC Glucose 356 H 325 H 06/02/20 05:50 WBC RBC Hgb Hct MCV MCH MCHC RDW Std Deviation RDW Coeff of Jazzmine Plt Count MPV Immature Gran % (Auto) Neut % (Auto) Lymph % (Auto) [place] % (Auto) Eos % (Auto) Baso % (Auto) Absolute Neuts (auto) Absolute Lymphs (auto) Nucleated RBC % Sodium 141 Potassium 4.9 Chloride 110 H Carbon Dioxide 22.0 Anion Gap 9 BUN 47 H Creatinine 1.92 H Estim Creat Clear Calc 19.86 Est GFR (MDRD) Af Amer 33 L Est GFR (MDRD) Non-Af 28 L BUN/Creatinine Ratio 24.5 H Glucose 342 H Calcium 8.9 Phosphorus 3.7 Magnesium 2.1 Total Bilirubin 0.40 AST 22 ALT 40 Alkaline Phosphatase 43 L Troponin I Total Protein 6.6 Albumin 3.4 Globulin 3.2 Albumin/Globulin Ratio 1.1 POC Glucose Clinical Impression(s) from Imaging Studies Chest X-Ray 06/01/20 17:40 IMPRESSION: Post granulomatous disease. Scoliosis. No acute disease. Electronically Signed: Kemar Durán MD at 18:04 EDT , Service support , Current Medications Albuterol Sulfate (Ventolin Aerosols) 2.5 mg INHALATION Q2H PRN PRN PRN Reason: Shortness of Breath/Wheezing Albuterol/Ipratropium (Duoneb) 3 ml INHALATION Q4H.RT [facility] Last Admin: 06/02/20 03:05 Dose: 3 ml Documented by: Dextrose (D50w Syringe) 0 gm IV X1 PRN; Protocol PRN Reason: Hypoglycemia Fluticasone Propionate (Flonase Nasal [place]) 1 spray NASAL DAILY PRN PRN PRN Reason: CONGESTION Glucagon () 1 mg IM .X1 PRN PRN Reason: Hypoglycemia Heparin Sodium (Porcine) (Heparin Na) 5,000 unit SC Q8 [facility] Last Admin: 06/02/20 03:10 Dose: Not Given Documented by: Sodium Chloride () 1,000 mls @ 80 mls/hr IV .[id number] [facility] Last Admin: 06/01/20 21:05 Dose: 80 mls/hr Documented by: Pantoprazole Sodium 40 mg/ (Sodium Chloride) 110 mls @ 330 mls/hr IV Q24 BENNIE Sodium Chloride () 250 mls @ 15 mls/hr IV .[id number] PRN PRN Reason: Saline Flush Insulin Human Lispro (Humalog Kwikpen (Bkc)) 0 unit SC Q4 BENNIE; Protocol Last Admin: 06/02/20 05:34 Dose: 3 units Documented by: Methylprednisolone (Solu-Medrol) 60 mg IV Q8 BENNIE Last Admin: 06/02/20 05:40 Dose: 60 mg Documented by: Morphine Sulfate () 2 mg IV Q3H PRN PRN PRN Reason: Pain Score 6-10/10 Prochlorperazine Edisylate (Compazine Iv) 5 mg IV Q4H PRN PRN PRN Reason: Breakthrough nausea/vomiting Sodium Chloride () 10 - 40 ml IV UD PRN PRN Reason: SALINE FLUSH Last Admin: 06/02/20 05:40 Dose: 10 ml Documented by: Assessment/Plan All Active Problems (Last Reviewed 06/01/20 @ 19:[address] Kassandra Mesa, DO) Acute exacerbation of chronic obstructive airways disease with asthma (Acute) Aspiration into airway (Acute) Respiratory distress (Acute) Atrial flutter with rapid ventricular response (Resolved 04/16/20) RECOMMENDATIONS: 1. Proceed with bronchoscopic airway evaluation this morning at 0830. 2. Wean supplemental oxygen as tolerated. 3. Continue scheduled bronchodilator therapy and IV steroids. 4. Consider obtaining speech therapy evaluation, given recurrent aspiration events. IMPRESSIONS: 1. Acute hypoxemic respiratory insufficiency/shortness of breath/possible foreign body aspiration The patient reportedly aspirated a portion of her meal last evening and subsequently developed shortness of breath and respiratory insufficiency. There is clinical concern for foreign body aspiration. Accordingly, will plan to proceed with bronchoscopic airway evaluation and retrieval, if clinically indicated. The patient's aspiration event may have precipitated an exacerbation of her underlying asthma. Therefore, it is reasonable to continue scheduled bronchodilators and IV steroids. 2. History of dysphasia/recurrent aspiration Recommend obtaining a speech therapy evaluation, given the patient's report of recurrent aspiration events. 3. Self-reported history of COPD/asthma The patient is followed chronically by Dr. Delgado on an outpatient basis. Recommend continuing scheduled bronchodilators and IV steroids for now. 4. Obstructive sleep apnea/pulmonary hypertension/morbid obesity Complicates care, management, recovery and prognosis. This note was generated with Panvivaation software. It may contain incorrect words, spelling, and punctuation that were not noted in checking the note before signing. Inpatient E&M: 76506 Init Hosp L3
--- NOTE | 2020-06-02 08:11 | PN_ITS ---
Patient Problems: Active and Suspected Problems (Last Reviewed 06/01/20 @ 19:[address] Kassandra Mesa, DO) Acute exacerbation of chronic obstructive airways disease with asthma (Acute) Aspiration into airway (Acute) Venous insufficiency of both lower extremities (Suspected) Respiratory distress (Acute) Reason for Visit: pssible aspiration of food, while fadenata Objective: still coughing and wheezing. Has past event of aspiration which required brochoscopy and removal of pea by Dr Delgado, her primary canvas repairer. Obstructive sleep apnea, couldn't tolerate CPAP but wears only O2 at night. COPD. Had recent heart cath by Dr ROTH. Has Pulmonary HTN. Is taken off aspirin by Dr Roth. C/o burning micturiton and mild blood in urine last night. Denies recent history of UTI. Vitals/I&O's: Vital Signs Temp Pulse Resp BP Pulse Ox 98.3 F 88 22 H 129/53 H 94 06/02/20 08:08 06/02/20 08:08 06/02/20 08:08 06/02/20 08:08 06/02/20 08:08 Oxygen Flow Rate (L/min) 2 Oxygen Delivery Method Nasal Cannula Weight: 207 lb 12.8 oz Body Mass Index (BMI) 40.6 Intake and Output for Last 24 Hours 05/31/20 06/01/20 06/02/20 23:59 23:59 23:59 Output Total 300 / 300 Balance -300 / -300 General: Alert, Oriented x3, Cooperative HEENT: Atraumatic, PERRLA, EOMI, Normocephalic Oral: Dry Mucosa, - - No visible food particle in mouth or pharyngeal region Neck: Supple, No JVD, Negative Carotid Bruits Lungs: Diminished, Wheezes - high pitch wheezing sound in upper airway in throat and chest. Cardiovascular: Regular rate, Normal S1, Normal S2, No murmurs Abdomen: Bowel Sounds Present, Soft, Non Tender, Non-Distended Extremities: Capillary Refill Less than 3 Seconds, Edema Skin: No rashes, No breakdown Musculoskeletal: No Tenderness to Palpation of Joints or Extremities, Arthritic Changes Neurological: Cranial nerves II-XII grossly intact, Deep Tendon Reflexes 2+/4 and Symmetrical, Neuro grossly intact Psych/Mental Status: Normal Affect, Appropriate Laboratory Results 06/01/20 18:30: WBC 11.9 H, RBC 3.94 L, Hgb 11.7 L, Hct 36.9 L, MCV 93.7, MCH 29.7, MCHC 31.7 L, RDW Std Deviation 52.7 H, RDW Coeff of Jazzmine 15.5 H, Plt Count 260, MPV 9.6, Immature Gran % (Auto) 3.700 H, Neut % (Auto) 76.1 H, Lymph % (Auto) 9.2 L, [place] % (Auto) 8.6, Eos % (Auto) 1.8, Baso % (Auto) 0.6, Absolute Neuts (auto) 9.1 H, Absolute Lymphs (auto) 1.10, Nucleated RBC % 0 06/01/20 18:30: Sodium 142, Potassium 4.5, Chloride 111 H, Carbon Dioxide 24.0, Anion Gap 7, BUN 48 H, Creatinine 2.03 H, Estim Creat Clear Calc 18.79, Est GFR (MDRD) Af Amer 31 L, Est GFR (MDRD) Non-Af 26 L, BUN/Creatinine Ratio 23.6 H, Glucose 190 H, Calcium 9.3, Troponin I < 0.015 06/01/20 22:07: POC Glucose 205 H 06/02/20 02:05: POC Glucose 356 H 06/02/20 05:27: POC Glucose 325 H 06/02/20 05:50: WBC 10.8, RBC 3.94 L, Hgb 11.7 L, Hct 38.4, MCV 97.5, MCH 29.7, MCHC 30.5 L, RDW Std Deviation 55.3 H, RDW Coeff of [place] 15.7 H, Plt Count 205, MPV 9.6 06/02/20 05:50: Sodium 141, Potassium 4.9, Chloride 110 H, Carbon Dioxide 22.0, Anion Gap 9, BUN 47 H, Creatinine 1.92 H, Estim Creat Clear Calc 19.86, Est GFR (MDRD) Af Amer 33 L, Est GFR (MDRD) Non-Af 28 L, BUN/Creatinine Ratio 24.5 H, Glucose 342 H, Calcium 8.9, Phosphorus 3.7, Magnesium 2.1, Total Bilirubin 0.40, AST 22, ALT 40, Alkaline Phosphatase 43 L, Total Protein 6.6, Albumin 3.4, Globulin 3.2, Albumin/Globulin Ratio 1.1 Current Medications Albuterol Sulfate (Ventolin Aerosols) 2.5 mg INHALATION Q2H PRN PRN PRN Reason: Shortness of Breath/Wheezing Albuterol/Ipratropium (Duoneb) 3 ml INHALATION Q4H.RT [facility] Last Admin: 06/02/20 03:05 Dose: 3 ml Documented by: Dextrose (D50w Syringe) 0 gm IV X1 PRN; Protocol PRN Reason: Hypoglycemia Fluticasone Propionate (Flonase Nasal [place]) 1 spray NASAL DAILY PRN PRN PRN Reason: CONGESTION Glucagon () 1 mg IM .X1 PRN PRN Reason: Hypoglycemia Heparin Sodium (Porcine) (Heparin Na) 5,000 unit SC Q8 [facility] Last Admin: 06/02/20 03:10 Dose: Not Given Documented by: Sodium Chloride () 1,000 mls @ 80 mls/hr IV .[id number] [facility] Last Admin: 06/01/20 21:05 Dose: 80 mls/hr Documented by: Pantoprazole Sodium 40 mg/ (Sodium Chloride) 110 mls @ 330 mls/hr IV Q24 [facility] Sodium Chloride () 250 mls @ 15 mls/hr IV .[id number] PRN PRN Reason: Saline Flush Insulin Human Lispro (Humalog Kwikpen (Bkc)) 0 unit SC Q4 [facility]; Protocol Last Admin: 06/02/20 05:34 Dose: 3 units Documented by: Methylprednisolone (Solu-Medrol) 60 mg IV Q8 [facility] Last Admin: 06/02/20 05:40 Dose: 60 mg Documented by: Morphine Sulfate () 2 mg IV Q3H PRN PRN PRN Reason: Pain Score 6-10/10 Prochlorperazine Edisylate (Compazine Iv) 5 mg IV Q4H PRN PRN PRN Reason: Breakthrough nausea/vomiting Sodium Chloride () 10 - 40 ml IV UD PRN PRN Reason: SALINE FLUSH Last Admin: 06/02/20 05:40 Dose: 10 ml Documented by: STROKE Vital Signs/Narrative: Vital Signs Temp Pulse Resp BP Pulse Ox 06/02/20 08:08 98.3 F 88 22 H 129/53 H 94 06/02/20 08:07 97.8 F 88 22 H 129/53 H 94 Medical Necessity - Tobacco Use Smoking Status: Former smoker Tobacco Use: Cigarettes Assessment/Plan All Active Problems (Last Reviewed 06/01/20 @ 19:[address] Kassandra Mesa, DO) Acute exacerbation of chronic obstructive airways disease with asthma (Acute) Aspiration into airway (Acute) Respiratory distress (Acute) Atrial flutter with rapid ventricular response (Resolved 04/16/20) 1. Acute resp insufficiency with possible FB aspiration with H/o recurrent aspiration and oropharyngeal dysphagia, possible esophageal too?: Dr. Cano is going to do Bronchoscopy. Speech therapist evaluation. MBS in 01/2018 showed pharyngoesophageal dysfunction. Repeat MBS and possible esophagogram too. Speech therapist. 2. COPD/ASTHMA Overlap with CONCEPCION: Doesn;t seem in exacerbation but mild resp distress due to FB. Cont scheduled Bronchodilator. 3. Mild pulm HTN: Heart cath 04/[address] Roth: LM, mild calcification otherwise no major coronaries obstructive disease. Negative, EF 60% BY ECHO. Right heart: CO 5.77, PW 13, PA 26,RV 7, RA 5,PVR 180. Follow Dr Delgado. 4. Dysyuria with mild transient hematuria R/O UTI: U/A with urine culture ordered. 5. CKD stage 3: 6. GERD: ON PPI. 7. DVT prophylaxis: on heparin SQ SHE WAS ADMITTED 04/16/20 for Atrial flutter with RVR AND RUL Pneumonia. had negative stress
--- NOTE | 2020-06-02 08:26 | NURSING ---
left room via bed. going to endo at this time.
[2020-06-02] MEDS: Lidocaine 2% Jelly 1 APPLIC Tube (09:05)
--- NOTE | 2020-06-02 09:23 | OP.BRONCH_ITS ---
Patient Name: Sugey Ling Procedure Date: 06/02/2020 8:49 AM Date of : 1950 Age: 69 Procedure: Bronchoscopy Indications: Lung foreign body Providers: Reji Cano MD Medicines: Monitored Anesthesia Care Complications: No immediate complications Procedure: Pre-Anesthesia Assessment: - A History and Physical has been performed. Patient meds and allergies have been reviewed. The risks and benefits of the procedure and the sedation options and risks were discussed with the patient. All questions were answered and informed consent was obtained. Patient identification and proposed procedure were verified prior to the procedure by the physician and the nurse in the procedure room. Mental Status Examination: alert and oriented. Airway Examination: normal oropharyngeal airway. Respiratory Examination: clear to auscultation and expiratory wheezes. CV Examination: normal. ASA Grade Assessment: III - A patient with severe systemic disease. After reviewing the risks and benefits, the patient was deemed in satisfactory condition to undergo the procedure. The anesthesia plan was to use monitored anesthesia care (MAC). Immediately prior to administration of medications, the patient was re-assessed for adequacy to receive sedatives. The heart rate, respiratory rate, oxygen saturations, blood pressure, adequacy of pulmonary ventilation, and response to care were monitored throughout the procedure. The physical status of the patient was re-assessed after the procedure. After I obtained informed consent, the scope was passed under direct vision. Throughout the procedure, the patient's blood pressure, pulse, and oxygen saturations were monitored continuously. The bronchoscope was introduced through the mouth and advanced to the tracheobronchial tree. The procedure was accomplished without difficulty. The patient tolerated the procedure well. Findings: The nasopharynx/oropharynx appears normal. The larynx appears normal. The vocal cords appear normal. The subglottic space is normal. The trachea is of normal caliber. The adonay is sharp. The tracheobronchial tree of the left lung was examined to at least the first subsegmental level. Bronchial mucosa and anatomy in the left lung are normal; there are no endobronchial lesions, and no secretions. Right Lung Abnormalities: Chicken was found in the orifice of the right upper lobe. The foreign body was successfully removed using forceps. Impression: - Lung foreign body - The airway examination of the left lung was normal. - Chicken was found in the bronchus intermedius. - Foreign body removal was successful. Recommendation: - Follow up with Dr. Delgado as previously scheduled. Procedure Code(s): --- Professional --- 94107, Bronchoscopy, rigid or flexible, including fluoroscopic guidance, when performed; with excision of tumor 41218, Bronchoscopy, rigid or flexible, including fluoroscopic guidance, when performed; with removal of foreign body Diagnosis Code(s): --- Professional --- T17.808A, Unspecified foreign body in other parts of respiratory tract causing other injury, initial encounter T17.508A, Unspecified foreign body in bronchus causing other injury, initial encounter CPT copyright 2017 [employer]. All rights reserved. The codes documented in this report are preliminary and upon cargo checker review may be revised to meet current compliance requirements. DO Reji Hennessy MD 06/02/2020 9:23:01 AM This report has been signed electronically. Number of Addenda: 0 Note Initiated On: 06/02/2020 8:49 AM
[2020-06-02] MEDS: 0.9% Normal Saline 1,000 ML 80 ML IV (10:09)
[2020-06-02 10:19] LABS: Mucous, Urine 0 SEEN /hpf (<or=2+); Squamous Epithelial Cells - UA 0 SEEN /hpf (5-10)
[2020-06-02 10:21] LABS: Color, Urine Straw (Yellow); Glucose, Dipstick 250 mg/dl (Normal); Ketone-Dipstick Negative (Negative); Leukocyte Esterase-Dipstick Negative /ul (Negative); Nitrite-Dipstick Negative (Negative); Occult Blood-Urine 10 /ul (Negative); Protein-Dipstick Negative (Negative); Specific Gravity, Urine 1.015 (1.002-1.030); Urine Bilirubin Dipstick Negative (Negative); Urine Clarity Clear (Clear); Urine Urobilinogen Normal (Normal)
[2020-06-02 10:33] LABS: Bacteria RARE /hpf (None Seen); Red Blood Cells-Urine 0-5 SEEN /hpf (0-5); White Blood Cells 0-5 SEEN /hpf (0-5)
[2020-06-02 10:35] LABS: Bedside Glucose 272 mg/dL (70-110)
--- NOTE | 2020-06-02 10:43 | PCM.DC ---
- Discharge Diagnoses Current Active Problems: Current Active and Chronic Problems (Last Reviewed 06/01/20 @ 19:[address] Kassandra Mesa, DO) Acute exacerbation of chronic obstructive airways disease with asthma (Acute) Aspiration into airway (Acute) Dysphagia (Chronic) Chronic renal failure, stage 3 (moderate) (Chronic) Pulmonary hypertension (Chronic) Obstructive sleep apnea (Chronic) Noncompliance with CPAP treatment (Chronic) quit wearing CPAP 2 years lorenzana Morbid obesity (Chronic) Diabetes mellitus type 2 in obese (Chronic) GERD (gastroesophageal reflux disease) (Chronic) Hyperuricemia (Chronic) Respiratory distress (Acute) You will use the following diet at home:: Calorie/Carbohydrate Controlled (specify 1200, 1400, etc), Cardiac Your food should be the consistency of: Regular Discharge Activity: May Not Drive Call your doctor if you observe: Fever of 101 or Higher, Coldness, Increased Pain, Numbness or Tingling, Change in Color, Inability to urinate, Inability to have a bowel movement, Using more than one pad per hour, Shortness of breath, Dizziness, Fainting spells, Swelling in the ankles, Chest pain, Prolonged hiccoughing, Increased palpitations (irregular heartbeat), Calf discomfort, Uncontrolled pain Allergies/Adverse Reactions: Allergies clindamycin Allergy (Verified 06/01/20 17:28) Rash ciprofloxacin Adverse Reaction (Mild, Verified 06/01/20 17:28) Upset Stomach amoxicillin trihydrate [From Augmentin] Adverse Reaction (Verified 06/01/20 20:43) Nausea also yeast infection morphine Adverse Reaction (Verified 06/01/20 17:28) Nausea potassium clavulanate [From Augmentin] Adverse Reaction (Verified 06/01/20 17:28) Nausea Medications to take at Discharge Albuterol Aerosols [Ventolin Aerosols] 2.5 mg INHALATION Q6H PRN PRN 07/07/14 Fenofibric Acid (Choline) [Trilipix] 135 mg PO QHS 07/07/14 Loratadine [Claritin] 10 mg PO DAILY 07/07/14 Montelukast [Singulair] 10 mg PO QHS 07/07/14 Alendronate Sodium [Fosamax] 70 mg PO MO 06/21/17 Fluticasone 0.05% [Flonase Nasal [place]] 1 spray NASAL DAILY PRN PRN 06/21/17 Fluticasone/Salmeterol [Advair 500/50 Mcg Diskus] 1 puff INHALATION BID 06/21/17 Insulin Detemir [Levemir FlexPen] 40 units SUBCUT QHS 06/21/17 Pantoprazole Sodium [Protonix] 40 mg PO DAILY 06/21/17 Sour [place] Extract [Tart [place] Extract] 1,000 mg PO DAILY 01/07/18 Febuxostat [Uloric] 40 mg PO DAILY 12/30/18 Cholecalciferol (VIT D3) [Vitamin D3] 1,000 unit PO DAILY 04/16/20 fluconazole 150 mg tablet 150 mg PO PRN PRN 04/25/20 Cyanocobalamin (Vitamin B-12) [Vitamin B-12] 1,000 mcg PO DAILY 06/01/20 Diclofenac Sodium [Voltaren] 100 gm TP DAILY PRN 06/01/20 Macitentan [Opsumit] 10 mg PO DAILY 06/01/20 Tiotropium [place] [Spiriva Respimat] 2 puff INHALATION DAILY 06/01/20 Amlodipine Besylate [Norvasc] 5 mg PO DAILY #90 tab 06/02/20 Losartan Potassium [Cozaar] 50 mg PO DAILY #0 06/02/20 Prednisone 10 mg PO DAILY #30 tab 06/02/20 Triamterene/Hydrochlorothiazid [Triamterene-Hctz 37.5-25 mg Tb] 1 tab PO DAILY #0 06/02/20 The following prescriptions were given: Prednisone 10 mg PO DAILY #30 tab Transmission Status: Pending to [facility]30 Primary Care Physician: Veronica Oquendo DO [Primary Care Provider] - Please follow up with your Primary Care Physician in: in 2 weeks Test Results: Test results from this visit will be discussed in further detail at your follow-up appointment, if applicable. Please Follow Up With: Octavio Delgado MD When: in 2 weeks
--- NOTE | 2020-06-02 10:46 | DS.PCM_ITS ---
Discharge Date and Diagnosis - Problem List Patient Problems: Active and Suspected Problems (Last Reviewed 06/01/20 @ 19:[address] Kassandra Mesa DO) Acute exacerbation of chronic obstructive airways disease with asthma (Acute) Aspiration into airway (Acute) Venous insufficiency of both lower extremities (Suspected) Respiratory distress (Acute) Date of Admission: 06/01/20 Date of Discharge: 06/02/20 - Primary Discharge Diagnosis Acute Problems: Active Problems (Last Reviewed 06/01/20 @ 19:[address] Kassandra Mesa DO) Acute exacerbation of chronic obstructive airways disease with asthma (Acute) Aspiration into airway (Acute) Respiratory distress (Acute) Suspected Problems: Suspected Problems (Last Reviewed 06/01/20 @ 19:[address] Kassandra Mesa DO) Venous insufficiency of both lower extremities (Suspected) - Secondary Discharge Diagnosis Chronic Problems: Chronic Problems (Last Reviewed 06/01/20 @ 19:[address] Kassandra Mesa DO) Dysphagia (Chronic) Chronic renal failure, stage 3 (moderate) (Chronic) Pulmonary hypertension (Chronic) Obstructive sleep apnea (Chronic) Noncompliance with CPAP treatment (Chronic) quit wearing CPAP 2 years lorenzana Morbid obesity (Chronic) Diabetes mellitus type 2 in obese (Chronic) GERD (gastroesophageal reflux disease) (Chronic) Hyperuricemia (Chronic) Right bundle branch block (RBBB) (Chronic) Paroxysmal atrial fibrillation (Chronic) Essential (primary) hypertension (Chronic) Hyperlipidemia (Chronic) Asthma (Chronic) Sarcoidosis (Chronic) Hospital Course and Treatment Operations: None Summary of Care Provided: The patient is a 69 year old F with history of COPD, pulmonary hypertension, obstructive sleep apnea multiple comorbidities came to ER with shortness of breath coughing and wheezing after aspiration of food; she was eating Israeli Fajita. Patient is being followed by Dr. Delgado and had multiple probably about 10 similar aspiration events as reported by the .SHE WAS ADMITTED 04/16/20 for Atrial flutter with RVR AND RUL Pneumonia. had negative stress 1. Acute resp insufficiency with food aspiration with H/o recurrent aspiration and oropharyngeal dysphagia: Patient was admitted on [facility] floor. Hemodynamically stable. Patient afebrile. Mild leukocytosis 11.9 thousand with neutrophils 76%. Dr. Cano did bronchoscopy and found chicken piece in bronchus intermedius, at orifice of right upper lobe and was removed with a forcep. MBS in 01/2018 showed pharyngoesophageal dysfunction. Patient will need further follow-up with Dr. Delgado and possible repeat modified barium swallow/esophagram as an outpatient. Patient was advised modified dysphagia diet. Patient further added that she always get antibiotic after aspiration event for aspiration pneumonia. Cefdinir 300 mg twice daily was given for prophylactic measure as she is high risk of aspiration pneumonia but the chest x-ray does not show acute cardiopulmonary disease. On Solu-Medrol for anti-inflammatory effect for airway edema and discharged on tapering dose of prednisone. 2. COPD/ASTHMA Overlap with CONCEPCION: Doesn;t seem in exacerbation but mild resp distress due to FB. Cont scheduled Bronchodilator. 3. Mild pulm HTN: Heart cath 04/[address] Roth: LM, mild calcification otherwise no major coronaries obstructive disease. Negative, EF 60% BY ECHO. Right heart: CO 5.77, PW 13, PA 26,RV 7, RA 5,PVR 180. Follow Dr Delgado. 4. Dysyuria with mild transient hematuria, nonspecific probably from decreased water intake. UTI ruled out. UA is negative of LE and nitrite, WBC and RBC 0-5 cells. 5. CKD stage 3: Stable. 6. GERD: ON PPI. 7. DVT prophylaxis: on heparin SQ Discharge medication reconciliation done. Discharge follow-up instructions completed. Discharge process discussed with the patient and all questions were answered to patient's satisfaction. Patient is discharged on cefdinir and tapering dose of prednisone. Follow-up with Dr. Delgado. Total time spent, exact 35 minutes on discharge meds reconciliation, examination, coordination of care with nurses and ancillary staff, review of imaging and blood test and discussion with the patient on follow-up instructions Clinical Impression(s) from Imaging Studies Chest X-Ray 06/01/20 17:40 IMPRESSION: Post granulomatous disease. Scoliosis. No acute disease. Patient Problems: Active and Suspected Problems (Last Reviewed 06/01/20 @ 19:[address] Kassandra Mesa, DO) Acute exacerbation of chronic obstructive airways disease with asthma (Acute) Aspiration into airway (Acute) Venous insufficiency of both lower extremities (Suspected) Respiratory distress (Acute) Subjective: Pt was coughing and wheezing in the morning before bronchoscopy. Has past event of aspiration which required brochoscopy and removal of pea by Dr Delgado, her primary insect control inspector. Obstructive sleep apnea, couldn't tolerate CPAP and wears only O2 at night. COPD. Had recent heart cath by Dr ROTH. History of pulmonary HTN. Is taken off aspirin by Dr Roth. C/o burning micturiton and mild blood in urine; one time last night. Denies recent history of UTI. Objective: On physical exam General: Alert, Oriented x3, Cooperative HEENT: Atraumatic, PERRLA, EOMI, Normocephalic Oral: Dry Mucosa, No visible food particle in mouth or pharyngeal region Neck: Supple, No JVD, Negative Carotid Bruits Lungs: Diminished, Wheezes - high pitch wheezing sound in upper airway in throat and chest. Cardiovascular: Regular rate, Normal S1, Normal S2, No murmurs Abdomen: Bowel Sounds Present, Soft, Non Tender, Non-Distended Extremities: Capillary Refill Less than 3 Seconds, Edema Skin: No rashes, No breakdown Musculoskeletal: No Tenderness to Palpation of Joints or Extremities, Arthritic Changes Neurological: Cranial nerves II-XII grossly intact, Deep Tendon Reflexes 2+/4 and Symmetrical, Neuro grossly intact Psych/Mental Status: Normal Affect, Appropriate - Physical Exam Vitals/I&O's: Vital Signs Temp Pulse Resp BP Pulse Ox 97.8 F 84 20 H 117/52 L 94 06/02/20 10:14 06/02/20 10:14 06/02/20 10:14 06/02/20 10:14 06/02/20 10:14 Oxygen Flow Rate (L/min) 3 Oxygen Delivery Method Room Air Weight: 207 lb 12.8 oz Body Mass Index (BMI) 40.6 Intake and Output for Last 24 Hours 05/31/20 06/01/20 06/02/20 23:59 23:59 23:59 Intake Total 1004 / 1004 Output Total 300 / 300 Balance 704 / 704 Laboratory Results 06/01/20 18:30: WBC 11.9 H, RBC 3.94 L, Hgb 11.7 L, Hct 36.9 L, MCV 93.7, MCH 29.7, MCHC 31.7 L, RDW Std Deviation 52.7 H, RDW Coeff of Jazzmine 15.5 H, Plt Count 260, MPV 9.6, Immature Gran % (Auto) 3.700 H, Neut % (Auto) 76.1 H, Lymph % (Auto) 9.2 L, [place] % (Auto) 8.6, Eos % (Auto) 1.8, Baso % (Auto) 0.6, Absolute Neuts (auto) 9.1 H, Absolute Lymphs (auto) 1.10, Nucleated RBC % 0 06/01/20 18:30: Sodium 142, Potassium 4.5, Chloride 111 H, Carbon Dioxide 24.0, Anion Gap 7, BUN 48 H, Creatinine 2.03 H, Estim Creat Clear Calc 18.79, Est GFR (MDRD) Af Amer 31 L, Est GFR (MDRD) Non-Af 26 L, BUN/Creatinine Ratio 23.6 H, Glucose 190 H, Calcium 9.3, Troponin I < 0.015 06/01/20 22:07: POC Glucose 205 H 06/02/20 02:05: POC Glucose 356 H 06/02/20 05:27: POC Glucose 325 H 06/02/20 05:50: WBC 10.8, RBC 3.94 L, Hgb 11.7 L, Hct 38.4, MCV 97.5, MCH 29.7, MCHC 30.5 L, RDW Std Deviation 55.3 H, RDW Coeff of Jazzmine 15.7 H, Plt Count 205, MPV 9.6 06/02/20 05:50: Sodium 141, Potassium 4.9, Chloride 110 H, Carbon Dioxide 22.0, Anion Gap 9, BUN 47 H, Creatinine 1.92 H, Estim Creat Clear Calc 19.86, Est GFR (MDRD) Af Amer 33 L, Est GFR (MDRD) Non-Af 28 L, BUN/Creatinine Ratio 24.5 H, Glucose 342 H, Calcium 8.9, Phosphorus 3.7, Magnesium 2.1, Total Bilirubin 0.40, AST 22, ALT 40, Alkaline Phosphatase 43 L, Total Protein 6.6, Albumin 3.4, Globulin 3.2, Albumin/Globulin Ratio 1.1 06/02/20 10:12: Urine Color Straw, Urine Clarity Clear, Urine pH 6.0, Ur Specific Julian 1.015, Urine Protein Negative, Urine Glucose (UA) 250 H, Urine Ketones Negative, Urine Occult Blood 10 H, Urine Nitrite Negative, Urine Bilirubin Negative, Urine Urobilinogen Normal, Ur Leukocyte Esterase Negative, Urine RBC 0-5 SEEN, Urine WBC 0-5 SEEN, Ur Squamous Epith Cells 0 SEEN, Urine Bacteria RARE, Urine Mucus 0 SEEN 06/02/20 10:22: POC Glucose 272 H Current Medications Albuterol Sulfate (Ventolin Aerosols) 2.5 mg INHALATION Q2H PRN PRN PRN Reason: Shortness of Breath/Wheezing Albuterol/Ipratropium (Duoneb) 3 ml INHALATION Q4H.RT [facility] Last Admin: 06/02/20 07:50 Dose: Not Given Documented by: Dextrose (D50w Syringe) 0 gm IV X1 PRN; Protocol PRN Reason: Hypoglycemia Fluticasone Propionate (Flonase Nasal Thorndike) 1 spray NASAL DAILY PRN PRN PRN Reason: CONGESTION Glucagon () 1 mg IM .X1 PRN PRN Reason: Hypoglycemia Heparin Sodium (Porcine) (Heparin Na) 5,000 unit SC Q8 [facility] Last Admin: 06/02/20 03:10 Dose: Not Given Documented by: Sodium Chloride () 1,000 mls @ 80 mls/hr IV .[id number] [facility] Last Infusion: 06/02/20 10:12 Dose: 0 mls/hr Documented by: Pantoprazole Sodium 40 mg/ (Sodium Chloride) 110 mls @ 330 mls/hr IV Q24 [facility] Last Admin: 06/02/20 10:11 Dose: 330 mls/hr Documented by: Sodium Chloride () 250 mls @ 15 mls/hr IV .[id number] PRN PRN Reason: Saline Flush Insulin Human Lispro (Humalog Kwikpen (Bkc)) 0 unit SC Q4 [facility]; Protocol Last Admin: 06/02/20 10:26 Dose: 3 units Documented by: Methylprednisolone (Solu-Medrol) 40 mg IV Q12 [facility] Last Admin: 06/02/20 10:17 Dose: 40 mg Documented by: Morphine Sulfate () 2 mg IV Q3H PRN PRN PRN Reason: Pain Score 6-10/10 Prochlorperazine Edisylate (Compazine Iv) 5 mg IV Q4H PRN PRN PRN Reason: Breakthrough nausea/vomiting Sodium Chloride () 10 - 40 ml IV UD PRN PRN Reason: SALINE FLUSH Last Admin: 06/02/20 10:17 Dose: 10 ml Documented by: Discharge Activity: May Not Drive Call your doctor if you observe: Fever of 101 or Higher, Coldness, Increased Pain, Numbness or Tingling, Change in Color, Inability to urinate, Inability to have a bowel movement, Using more than one pad per hour, Shortness of breath, Dizziness, Fainting spells, Swelling in the ankles, Chest pain, Prolonged hiccoughing, Increased palpitations (irregular heartbeat), Calf discomfort, Uncontrolled pain Home Medications: Medications to take at Discharge Albuterol Aerosols [Ventolin Aerosols] 2.5 mg INHALATION Q6H PRN PRN 07/07/14 Fenofibric Acid (Choline) [Trilipix] 135 mg PO QHS 07/07/14 Loratadine [Claritin] 10 mg PO DAILY 07/07/14 Montelukast [Singulair] 10 mg PO QHS 07/07/14 Alendronate Sodium [Fosamax] 70 mg PO MO 06/21/17 Fluticasone 0.05% [Flonase Nasal [place]] 1 spray NASAL DAILY PRN PRN 06/21/17 Fluticasone/Salmeterol [Advair 500/50 Mcg Diskus] 1 puff INHALATION BID 06/21/17 Insulin Detemir [Levemir FlexPen] 40 units SUBCUT QHS 06/21/17 Pantoprazole Sodium [Protonix] 40 mg PO DAILY 06/21/17 Sour Scott Extract [Tart Scott Extract] 1,000 mg PO DAILY 01/07/18 Febuxostat [Uloric] 40 mg PO DAILY 12/30/18 Cholecalciferol (VIT D3) [Vitamin D3] 1,000 unit PO DAILY 04/16/20 fluconazole 150 mg tablet 150 mg PO PRN PRN 04/25/20 Cyanocobalamin (Vitamin B-12) [Vitamin B-12] 1,000 mcg PO DAILY 06/01/20 Diclofenac Sodium [Voltaren] 100 gm TP DAILY PRN 06/01/20 Macitentan [Opsumit] 10 mg PO DAILY 06/01/20 Tiotropium [place] [Spiriva Respimat] 2 puff INHALATION DAILY 06/01/20 Amlodipine Besylate [Norvasc] 5 mg PO DAILY #90 tab 06/02/20 Cefdinir 300 mg PO BID #6 cap 06/02/20 Losartan Potassium [Cozaar] 50 mg PO DAILY #0 06/02/20 Prednisone 10 mg PO DAILY #30 tab 06/02/20 Triamterene/Hydrochlorothiazid [Triamterene-Hctz 37.5-25 mg Tb] 1 tab PO DAILY #0 06/02/20 Following Prescrptions Were Given to Patient: Cefdinir 300 mg PO BID #6 cap Transmission Status: Received by [facility] Prednisone 10 mg PO DAILY #30 tab Transmission Status: Received by [facility] Primary Care Physician: Veronica Oquendo DO [Primary Care Provider] - Please follow up with your Primary Care Physician in: in 2 weeks Please Follow Up With: Octavio Delgado MD When: in 2 weeks Medical Necessity - Tobacco Use Smoking Status: Former smoker Tobacco Use: Cigarettes Meaningful Use Info Meaningful Use Diagnoses (Choose all that apply): None applicable OBSV E&M: 57643 Observation care discharge
== END 2020-06-02 12:40 | disposition home or self-care (01) ==
LOC: ED 17:59 → MS3 20:20
PROVIDERS: Internal Medicine Critical Care Medicine; Admitting Provider Internal Medicine; Emergency Provider Emergency Medicine; PCP Internal Medicine; Visit Provider Internal Medicine
PROC: 0BJ08ZZ Inspection of Tracheobronchial Tree, Via Natural or Artificial Opening Endoscopic (ICD-10-PCS; CPT 31622; principal; 2020-06-02 08:30)
DX: T17.820A Food in other parts of respiratory tract causing asphyxiation, initial encounter (principal); X58.XXXA Exposure to other specified factors, initial encounter; J44.1 Chronic obstructive pulmonary disease with (acute) exacerbation; R13.14 Dysphagia, pharyngoesophageal phase; R06.03 Acute respiratory distress; E66.01 Morbid (severe) obesity due to excess calories; I48.0 Paroxysmal atrial fibrillation; N18.3 Chronic kidney disease, stage 3 (moderate); G47.33 Obstructive sleep apnea (adult) (pediatric); I27.20 Pulmonary hypertension, unspecified; K21.9 Gastro-esophageal reflux disease without esophagitis; E78.5 Hyperlipidemia, unspecified; E11.22 Type 2 diabetes mellitus with diabetic chronic kidney disease; I12.9 Hypertensive chronic kidney disease with stage 1 through stage 4 chronic kidney disease, or unspecified chronic kidney disease; D86.9 Sarcoidosis, unspecified; Z87.891 Personal history of nicotine dependence; Z91.19 Patient's noncompliance with other medical treatment and regimen; Z68.41 Body mass index [BMI] 40.0-44.9, adult; Z79.899 Other long term (current) drug therapy; Z79.4 Long term (current) use of insulin; Z79.02 Long term (current) use of antithrombotics/antiplatelets; Z99.81 Dependence on supplemental oxygen
CPT/HCPCS: 31635; 36415; 71045; 80048; 80053; 81001; 82962; 83735; 84100; 84484; 85025; 85027; 87086; 87088; 93005; 94640; 96361; 96365; 96375; 96376; 99218; 99251; 99283; J7030; A4216; G0378; G0463

== ENCOUNTER → 2020-06-14 13:25 | Outpatient (CLI) | payer MEDICARE, OTHER, SELFPAY ==
[2020-06-02 08:08] VITALS: BMI 40.6
--- NOTE | 2020-06-14 13:47 | VDLE_ITS ---
Reason For Study: Pain in left leg RIGHT LEFT CFV is compressible, spontaneous, phasic, GSV is normal. competent and demonstrates normal CFV is compressible, spontaneous, phasic, augmentation. competent, and demonstrates normal Procedure augmentation. Exam performed in department. FV is compressible, spontaneous, phasic, A preliminary report was called and/or faxed competent and demonstrates normal to [facility]. augmentation. POP V is compressible, spontaneous, phasic, competent and demonstrates normal augmentation. T/P Trunk is compressible. PTV is compressible. LT PerV is compressible. Interpretation Summary Deep veins of the left lower extremity are patent and compressible segmentally. There is no evidence of left lower extremity deep vein thrombosis. Valvular competence appears intact within the proximal deep venous system on the left . The left great saphenous vein appears patent and compressible segmentally. Ordering Physician: Vreonica Oquendo Referring Physician: Veronica Oquendo Performed By: Alannah Fitzgerald RVT
== END ==
PROVIDERS: PCP Internal Medicine; Referring Provider Internal Medicine; Visit Provider Internal Medicine
DX: M79.662 Pain in left lower leg (principal)
CPT/HCPCS: 93971

== ENCOUNTER → 2020-06-15 16:06 | Outpatient (CLI) | payer MEDICARE, OTHER, SELFPAY ==
[2020-06-02 08:08] VITALS: BMI 40.6
--- NOTE | 2020-06-15 16:09 | RAD_ITS ---
STUDY: X-RAY CHEST REASON FOR EXAM: Female, 69 years old. asthma, pulm HTN TECHNIQUE: PA and lateral COMPARISON: June 01, 2020 FINDINGS: Less than optimal inspiratory effort is observed. There is minor interstitial thickening in the right lower lobe. There is left lower lobe atelectasis or infiltrate with small effusion.. Small calcified granuloma in left upper and lower lobes as well as the right lower lobe Heart is enlarged.. Calcified left hilar nodes. Normal visualized pulmonary arteries. Normal visualized aortic arch and descending thoracic aorta. Dorsal spine demonstrates scoliosis and degenerative change. Normal visualized ribs, clavicles, and shoulders. There is no demonstrated abnormality of the visualized soft tissue structures of the upper abdomen. RAD/Chest PA and Lateral IMPRESSION: ASHD. Old granulomatous disease. Minor chronic interstitial changes the right base. Small left pleural effusion and left lower lobe atelectasis or infiltrate Electronically Signed: Andry Loza MD at 16:32 EDT , Service support ,
== END ==
PROVIDERS: PCP Internal Medicine; Referring Provider Internal Medicine Pulmonary Disease; Visit Provider Internal Medicine Pulmonary Disease
DX: J45.909 Unspecified asthma, uncomplicated (principal); I27.20 Pulmonary hypertension, unspecified
CPT/HCPCS: 71046

== ENCOUNTER → 2020-06-26 14:32 | Outpatient (CLI) | payer MEDICARE, OTHER, SELFPAY ==
[2020-06-02 08:08] VITALS: BMI 40.6
--- NOTE | 2020-06-26 14:34 | BI_ITS ---
MAMMOGRAPHY - BILATERAL SCREENING REASON FOR EXAM: Female, 69 years old. Routine annual screening examination. PERTINENT HISTORY: Non-contributory. TECHNIQUE: Digital bilateral breast luis (3D mammographic acquisition) in the CC and MLO projections. 2-D mediolateral oblique (MLO) and craniocaudad (CC) views of both breasts were obtained. CAD: Full Field Digital Mammography with Computer Added Detection was performed. COMPARISON: Comparison is made with prior examination dated 06-09-19 and 05-20-18. FINDINGS: Breast Composition: The breasts are almost entirely fatty. There are no dominant masses or suspicious calcifications. Stable benign appearing bilateral axillary lymph nodes. No other significant abnormalities are identified. There has been no significant change since the prior study. BI/SCREEN MAMM (CAD) W/LUIS BILAT IMPRESSION: Stable bilateral screening mammogram. Yearly follow-up mammogram recommended. (A) ASSESSMENT CATEGORY: BIRADS Category 2: Benign. A letter regarding these results will be sent to the patient by the facility within 30 days. Approximately 10% of breast cancers are not detected by mammography. A normal mammogram should not delay biopsy of a clinically suspicious abnormality. [id number] Electronically Signed: Anam Larios, at 15:21 EDT , Service support ,
== END ==
PROVIDERS: PCP Internal Medicine; Referring Provider Internal Medicine; Visit Provider Internal Medicine
DX: Z12.31 Encounter for screening mammogram for malignant neoplasm of breast (principal)
CPT/HCPCS: 77063; 77067

== ENCOUNTER → 2020-07-10 12:29 | Outpatient (CLI) | payer MEDICARE, OTHER, SELFPAY ==
[2020-06-02 08:08] VITALS: BMI 40.6
--- NOTE | 2020-07-10 12:34 | RAD_ITS ---
STUDY: X-RAY CHEST REASON FOR EXAM: Female, 69 years old. PLEURAL EFFUSION. ASTHMA AND CHONDROCOSTAL SYNDROME TECHNIQUE: PA and lateral views of the chest. COMPARISON: Comparison is made with prior study dated 06/15/2020. FINDINGS: Scattered calcified granulomas. Persistent pleural-parenchymal changes at the left lung base although there has been improvement. Stable blunting of the left costophrenic angle. Normal size heart. There are calcified mediastinal lymph nodes. There is prominence of the pulmonary hilar arteries without peripheral pulmonary vascular congestion, suggesting pulmonary hypertension. There is atherosclerotic calcification of the aortic arch with tortuosity. There are diffuse degenerative changes of the visualized thoracic spine. Dextroscoliosis. Healed fracture of the left humeral neck. There is no demonstrated abnormality of the visualized soft tissue structures of the upper abdomen. RAD/Chest PA and Lateral IMPRESSION: Persistent blunting of left costophrenic angle with persistent increased markings at the left lung base although there has been improvement as compared to prior study. Electronically Signed: Anam Larios, at 14:01 EDT , Service support ,
--- NOTE | 2020-07-10 12:35 | RAD_ITS ---
STUDY: X-RAY CHEST REASON FOR EXAM: Female, 69 years old. PLEURAL EFFUSION. ASTHMA AND CHONDROCOSTAL SYNDROME TECHNIQUE: Right and left lateral decubitus. COMPARISON: None. FINDINGS: No free-flowing pleural effusion is seen.. RAD/Special CXR (Obl/Decub/A/L) IMPRESSION: No free flowing pleural effusion is seen. Electronically Signed: Anam Larios, at 14:01 EDT , Service support ,
[2020-07-10 15:12] LABS: Absolute Neutrophil Count 7.4 X10^3/uL (2.0-7.7); Basophil# 0.12 X10^3/uL; Basophil% 1.1 % (0-1); Eosinophil# 0.16 X10^3/uL; Eosinophils% 1.5 % (0-5); Hemoglobin 11.5 g/dL (12.0-15.0); Lymphocyte % 11.3 % (19-41); Mean Corp Hgb Conc 31.1 g/dL (32-36); Mean Corpuscular Hgb 29.7 pg (27.0-32.0); Mean Corpuscular Volume 95.6 fL (81-99); Monocyte# 1.22 X10^3/uL; Monocyte% 11.5 % (0-10); NRBC Flagged by Analyzer 0 % (0-5); Neutrophil % 70.1 % (47-70); Platelet Count 318 K/mm3 (150-450); RBC Distribution Width CV 15.6 % (11.6-14.6); RBC Distribution Width SD 54.7 fl (35.1-43.9); Red Blood Count 3.87 M/mm3 (4.2-5.4); White Blood Count 10.6 K/mm3 (4.4-11.0)
[2020-07-10 15:15] LABS: Erythrocyte Sedimentation Rate 6 mm/hr (0-30)
== END ==
PROVIDERS: PCP Internal Medicine; Referring Provider Internal Medicine Pulmonary Disease; Visit Provider Internal Medicine Pulmonary Disease
DX: I27.20 Pulmonary hypertension, unspecified (principal); M94.0 Chondrocostal junction syndrome [Tietze]; J90 Pleural effusion, not elsewhere classified; J45.909 Unspecified asthma, uncomplicated; G47.33 Obstructive sleep apnea (adult) (pediatric)
CPT/HCPCS: 36415; 71046; 85025; 85652

== ENCOUNTER 2020-07-25 10:00 | Outpatient (RCR) | payer MEDICARE, OTHER, SELFPAY ==
[2020-06-02 08:08] VITALS: BMI 40.6
== END 2020-07-30 23:59 ==
LOC: DC 10:00
PROVIDERS: PCP Internal Medicine; Visit Provider Internal Medicine
DX: Z71.3 Dietary counseling and surveillance (principal); E11.9 Type 2 diabetes mellitus without complications
CPT/HCPCS: G0108

== ENCOUNTER 2020-08-03 09:26 | Emergency (ER) | payer MEDICARE, OTHER, SELFPAY ==
[2020-07-17 14:35] VITALS: BMI 40.6
[2020-08-03 09:26] VITALS: BP 147/73; PULSE 79; RESP 16; TEMP 36.4; O2SAT 94; BMI 35.4
--- NOTE | 2020-08-03 09:45 | RAD_ITS ---
STUDY: X-RAY CHEST REASON FOR EXAM: Female, 69 years old. Fell, pain TECHNIQUE: Single AP portable view of the chest. COMPARISON: Comparison is made with prior examination dated 07/10/2020. FINDINGS: Hyperinflation. Stable pleural parenchymal changes at the left lung base. Stable pleural thickening along the lateral aspect of the left upper hemithorax. Normal size heart. There are calcified mediastinal lymph nodes. Normal visualized pulmonary arteries. There is atherosclerotic calcification of the aortic arch with tortuosity. There are diffuse degenerative changes of the visualized thoracic spine. Dextroscoliosis. Normal visualized ribs, clavicles, and shoulders. There is no demonstrated abnormality of the visualized soft tissue structures of the upper abdomen. RAD/Chest 1 View (Portable) IMPRESSION: Stable examination. Stable pleural parenchymal changes at the left lung base with pleural thickening in the lateral aspect of the left lung apex. Electronically Signed: Anam Larios, at 10:49 EDT , Service support ,
--- NOTE | 2020-08-03 09:45 | CT_ITS ---
STUDY: CT CERVICAL SPINE WITHOUT CONTRAST REASON FOR EXAM: Female, 69 years old. FELL DOWN ONE STEP/NO LOC. Hx of HTN, diabetes, CKD and COPD RADIATION DOSAGE (If Supplied By Facility): CTDIvol = ( 28.66 ) mGy, DLP = ( 531.28 ) mGycm TECHNIQUE: High resolution transaxial imaging was performed without contrast material. Sagittal and coronal images were reconstructed. Individualized dose optimization techniques were used for this CT. COMPARISON: None FINDINGS: Normal craniovertebral junction. Normal anterior atlantoaxial articulation. Normal odontoid process. Normal cervical lordosis. Normal vertebral bodies and posterior osseous elements. C2-3: Normal endplates. Normal disc height and morphology. Normal central canal and intervertebral neuroforamina. C3-4: Mild degree of disc space narrowing. Anterior spondylosis. Mild degree of facet joint osteoarthritis. C4-5: Mild degree of disc space narrowing. Uncovertebral arthrosis. No significant stenosis is seen. C5-6: Normal endplates. Normal disc height and morphology. Normal central canal and intervertebral neuroforamina. C6-7: Normal endplates. Normal disc height and morphology. Normal central canal and intervertebral neuroforamina. C7-T1: Normal endplates. Normal disc height and morphology. Normal central canal and intervertebral neuroforamina. Atherosclerotic calcific plaques of the carotid bifurcations. CT/Spine Cervical without Contras IMPRESSION: Multilevel degenerative changes, as described above. Electronically Signed: Anam Larios, at 10:37 EDT , Service support ,
--- NOTE | 2020-08-03 09:45 | CT_ITS ---
STUDY: CT BRAIN WITHOUT CONTRAST REASON FOR EXAM: Female, 69 years old. FELL DOWN ONE STEP/NO LOC. Hx of HTN, diabetes, CKD and COPD RADIATION DOSAGE (If Supplied By Facility): CTDIvol = ( 44.99 ) mGy, DLP = ( 897.35 ) mGycm TECHNIQUE: Transaxial CT imaging of the brain was performed without administration of intravenous contrast material. Individualized dose optimization techniques were used for this CT. COMPARISON: Comparison is made with prior study dated 07/07/2014. FINDINGS: Normal soft tissue structures. There is hyperostosis frontalis internus. There is mild cerebral atrophy with widening of the extra-axial spaces and ventricular dilatation. Normal white matter tracts of the cerebral hemispheres. Normal basal ganglia and thalami. Normal brainstem. Normal cerebellum. There is no intracranial hemorrhage. There are no findings of an acute ischemic infarction. Atherosclerotic calcification of the vertebral arteries and cavernous portions of the internal carotid arteries bilaterally. Opacification of the right maxillary sinus. Small air-fluid level in the left axillar sinus. Air-fluid levels in the sphenoid sinus. Opacification of the ethmoid sinuses as well as the nasal pharynx. CT/Brain/Head without Contrast IMPRESSION: Chronic involutional changes of the brain. Pansinusitis. Electronically Signed: Anam Larios, at 10:35 EDT , Service support ,
--- NOTE | 2020-08-03 09:47 | RAD_ITS ---
STUDY: X-RAY - PELVIS AND RIGHT HIP REASON FOR EXAM: Female, 69 years old. Fell today, pain TECHNIQUE: 3 views of the pelvis and hip. COMPARISON: None. FINDINGS: There is a non-specific bowel gas pattern. There are multiple calcified phleboliths. There is narrowing with cortical sclerosis and osteophyte formation of the sacroiliac joint consistent with degenerative osteoarthritic changes. Normal bilateral superior and inferior pubic rami. Normal pubic symphysis. Normal bilateral ischial tuberosities. Normal visualized femoral head. Normal acetabulum. Normal hip joint. Prior laminectomy and fusion at the L4-L5 and L5-S1 levels. RAD/HIP, UNI W/ Pelvis 2-3 Views IMPRESSION: No fracture or dislocation is seen. Electronically Signed: Anam Larios, at 10:55 EDT , Service support ,
--- NOTE | 2020-08-03 09:47 | RAD_ITS ---
STUDY: X-RAY - RIGHT WRIST REASON FOR EXAM: Female, 69 years old. Fell today -- pain TECHNIQUE: 3 view(s) of the wrist were obtained. COMPARISON: None. FINDINGS: Normal visualized distal radius and ulna. Normal radiocarpal articulation. Normal distal radioulnar articulation. Nondisplaced avulsion fracture of the triquetrum. Normal carpal articulations. There is degenerative arthrosis of the carpometacarpal articulation of the thumb. Normal second through fifth carpometacarpal articulations. Calcification of the triangular fibrocartilage. Normal visualized metacarpal bones. Soft tissue swelling. RAD/Wrist min 3 Views IMPRESSION: Nondisplaced avulsion fracture of the triquetrum. Soft tissue swelling. Electronically Signed: Anam Larios, at 10:55 EDT , Service support ,
--- NOTE | 2020-08-03 09:47 | RAD_ITS ---
STUDY: X-RAY - RIGHT ELBOW REASON FOR EXAM: Female, 69 years old. Fell today, right elbow pain TECHNIQUE: 3 view(s) of the elbow. COMPARISON: None. FINDINGS: Normal visualized humerus, radius and ulna. Normal radiocapitellar and ulnotrochlear articulations. The soft tissue structures are unremarkable. RAD/Elbow min 3 Views IMPRESSION: Normal x-ray examination of the elbow. Electronically Signed: Anam Larios, at 10:51 EDT , Service support ,
--- NOTE | 2020-08-03 09:47 | RAD_ITS ---
STUDY: X-RAY - RIGHT KNEE REASON FOR EXAM: Female, 69 years old. Fell today, pain TECHNIQUE: 2 view(s) of the knee. COMPARISON: Comparison is made with prior examination dated 04/15/2016. FINDINGS: Normal visualized distal femur. Normal visualized proximal tibia and fibula. Normal proximal tibiofibular articulation. The patient is status post total knee replacement. There is good alignment. The soft tissue structures are unremarkable. RAD/Knee 1 or 2 Views IMPRESSION: Status post total knee replacement. There is good alignment. Electronically Signed: Anam Larios, at 10:53 EDT , Service support ,
--- NOTE | 2020-08-03 09:48 | EKG12_ITS ---
Test Reason : Blood Pressure : / mmHG Vent. Rate : 075 BPM Atrial Rate : 075 BPM P-R Int : 170 ms QRS Dur : 082 ms QT Int : 448 ms P-R-T Axes : 079 086 084 degrees QTc Int : 500 ms Poor data quality, interpretation may be adversely affected Normal sinus rhythm Low voltage QRS [id number] Abnormal ECG Confirmed by QUANG FELIX, JOSE LUIS ([id number]), commissioning editor JOELLEN ROMERO ([id number]) on 08/08/2020 9:32:55 AM Referred By: PATTIE Confirmed By:JOSEL UIS DEL RIO MD
--- NOTE | 2020-08-03 09:50 | ED.DCSUM_ITS ---
History of Present Illness Informant: Patient, Family, [employer] Occurred: Today Mechanism/Context: Same level fall, Trip Usually ambulates: Without assistance Location: Head, face, right elbow and wrist, right hip and knee Quality of Pain: Sharp Current Severity: Severe Maximum Severity: Severe Worsened by: movement, palpation Relieved by: nothing Associated Symptoms: Inability to ambulate. Negative for: Parasthesias, Weakness, Loss of function, Loss of consciousness, Amnesia Narrative: 69-year-old female past medical history of COPD, atrial fibrillation, chronic kidney disease, insulin-dependent diabetes, sleep apnea, presents to emergency department after a fall. Patient stated that she was walking at home and she forgot that the railing on their front part of their house have been removed she reached for it and it was not there and she fell face first on the ground also landing on her right side and was unable to get up after the fall. She did hit her head but did not lose consciousness. She is on Plavix and aspirin. She is complaining of a headache pain in her right side of her face, her right elbow, her right wrist, her right hip and knee. She denies any blurry vision double vision or loss of vision. Denies any difficulty with speech. Denies any weakness or paresthesias. Denies any vomiting chest pain or shortness of breath. She is having back pain but she does have chronic back pain. She denies any abdominal pain. Denies any other injuries at this time. Does not remember when her last tetanus was Tetanus Immunization: Unknown Prior similar symptoms: No Recent Illness/Hospitalization: Yes <Stew So - Last Filed: 08/03/20 12:11> <Hoang Coronado - Last Filed: 08/03/20 13:25> Chief Complaint: Fall Past Medical History Prior records reviewed: Yes Past Medical History: - - COPD, chronic kidney disease, A. fib, sleep apnea, hypertension, hyperlipidemia, insulin-dependent diabetes mellitus, dysphagia Surgical History: cholecystectomy, hysterectomy, total knee arthroplasty, - - Lumbar back surgery, foot surgery, Lives: With Family Smoking Status: Former smoker Alcohol: None Drugs: None - Family History Paternal Family History: Family History (Last Reviewed 07/17/20 @ 14:[address] Salvador Velazquez MD) Father Hypertension Colon cancer Cancer Mother Hypertension Heart disease Diabetes Family History: Reports: Cancer - lung cancer Maternal Family History: Family History (Last Reviewed 07/17/20 @ 14:[address] Salvador Velazquez MD) Father Hypertension Colon cancer Cancer Mother Hypertension Heart disease Diabetes Family History: Reports: COPD, Hypertension Sibling Family History: Family History (Last Reviewed 07/17/20 @ 14:[address] Salvador Velazquez MD) Father Hypertension Colon cancer Cancer Mother Hypertension Heart disease Diabetes Family History: Reports: Diabetes <Stew So - Last Filed: 08/03/20 12:11> - Family History Paternal Family History: Family History (Last Reviewed 07/17/20 @ 14:[address] Salvador Velazquez MD) Father Hypertension Colon cancer Cancer Mother Hypertension Heart disease Diabetes Maternal Family History: Family History (Last Reviewed 07/17/20 @ 14:[address] Salvador Velazquez MD) Father Hypertension Colon cancer Cancer Mother Hypertension Heart disease Diabetes Sibling Family History: Family History (Last Reviewed 07/17/20 @ 14:[address] Salvador Velazquez MD) Father Hypertension Colon cancer Cancer Mother Hypertension Heart disease Diabetes <Hoang Coronado - Last Filed: 08/03/20 13:25> - Allergies and Home Meds Allergies/Adverse Reactions: Allergies clindamycin Allergy (Verified 07/17/20 13:39) Rash insulin detemir [From Levemir U-100 Insulin] Allergy (Verified 07/20/20 10:43) Rash ciprofloxacin Adverse Reaction (Mild, Verified 07/17/20 13:39) Upset Stomach amoxicillin trihydrate [From Augmentin] Adverse Reaction (Verified 07/17/20 13:39) Nausea also yeast infection morphine Adverse Reaction (Verified 07/17/20 13:39) Nausea potassium clavulanate [From Augmentin] Adverse Reaction (Verified 07/17/20 13:39) Nausea Primary Care Physician: Veronica Oquendo DO [Primary Care Provider] - 3-5 Days Will Oliveira MD [STAFF PHYSICIAN] - As soon as possible Review of Systems All systems negative except as indicated General: Denies: Chills, Fever, Sweats Eyes: Denies: Visual changes - bilaterally, Blurred Vision - bilaterally, Diplopia ENT: Denies: Rhinorrhea, Sore throat Cardiovascular: Denies: Chest pain, Palpitations Respiratory: Denies: Dyspnea, Cough, Dyspnea on exertion Gastrointestinal: Denies: Abdominal pain, Nausea, Vomiting, Diarrhea, Melena, Hematochezia Genitourinary: Denies: Dysuria, Hematuria, Frequency Musculoskeletal: Reports: Swelling, Extremity Pain. Denies: Myalgias, Arthralgias, Neck pain, Back pain Skin: Reports: Abrasions. Denies: Rash, Abscess, Wounds Neurological: Denies: Headache, Weakness, Parasthesia, Numbness <Stew So PA - Last Filed: 08/03/20 12:11> Physical Exam Vital Signs/Narrative: Vital Signs Temp Pulse Resp BP Pulse Ox 08/03/20 09:26 97.6 F L 79 16 147/73 H 94 Inital Vital Signs reviewed: Yes General: Well nourished, Well developed, Obese Head: Normocephalic, Trauma - Patient has an abrasion on the right side of her cheek but there is no laceration. She has dried blood on her face from a noseb leed that is not actively bleeding. She has no deformity of her nose or tenderness over the bridge of her nose and there is no nasal septal hematoma. No raccoon or elmore sign. Hemotympanum absent bilaterally., Tenderness Eyes: Perrl, EOMI ENT: TM's clear, No hemotympanum or drainage, No trauma Neck: Nontender, Full ROM. Negative for: Spinal Tenderness, Paraspinal Tenderness Cardiovascular: Regular rate, Regular rhythm Respiratory: No distress, CTA bilaterally, Chest nontender Abdomen: Soft, Nontender, Nondistended, Normal bowel sounds, No masses Back: Nontender. Negative for: CVA Tenderness - Right, CVA Tenderness - Left, Spinal Tenderness, Paraspinal Tenderness Extremeties: Patient has no bony tenderness of her right clavicle or scapula, her right shoulder, right humerus. Diffusely tender over the elbow mostly on the radial side. She has painful flexion and extension but she is able to fully extend and flex at the elbow. She has diffuse bony tenderness over her distal ulna and radius. No deformity is seen. Radial pulse normal. She is able to flex and extend her wrist and pronate and supinate but it is painful. She has no bony tenderness of her hand. Capillary refill and sensation of all 5 fingers are normal. She has no lacerations or abrasions over her entire upper right upper extremity. Diffuse tenderness lateral hip no deformity is noted skin is intact no bruising or redness. No lacerations. No tenderness over her thigh. She does have diffuse tenderness over the knee there is a small abrasion no laceration skin intact otherwise. She is able to flex and extend at the knee but it is very painful for her. No bony tenderness of her leg ankle or foot. DP and PT pulse are normal. She has normal sensation throughout her right leg. She has normal pulses and sensation of the left lower extremity. She had no spinal tenderness of her cervical thoracic or lumbar spine. Skin: Normal color, No rash, Trauma - Skin tear right proximal forearm without laceration. Abrasion right cheek without laceration Neurological: Alert, Oriented x3, Cranial nerves II-XII grossly intact, Normal Strength, Normal Sensation Psychological: Normal affect, Normal Mood <Stew So - Last Filed: 08/03/20 12:11> Vital Signs/Narrative: Vital Signs Temp Pulse Resp BP Pulse Ox 08/03/20 12:32 85 18 132/61 H 08/03/20 12:01 85 132/61 H 08/03/20 09:26 97.6 F L 79 16 147/73 H 94 <Hoang Coronado - Last Filed: 08/03/20 13:25> Diagnostic/Tx/Re-eval Chest X-Ray - ED: 1 View, Read by ED Physician, Read by Radiologist, No Acute Disease - Rhythm Strip Rhythm Strip: Sinus Rhythm Rate: 77 Ectopy: None - EKG Initial EKG Interpretation: Sinus Rhythm, No Acute Injury Pattern Prior: Unchanged - Medical Decision Making Patient presents after a fall. Her tetanus was updated. Her pain was treated with morphine and Zofran. Laboratory work-up unremarkable. CT brain and CT cervical spine unremarkable. Chest x-ray unremarkable. X-ray of right hip and right knee showed no acute findings. X-ray right elbow unremarkable. X-ray right wrist shows a a avulsion fracture of the triquetrium. Left wrist x-ray was unremarkable. Patient was placed in an Ortho-Glass volar splint. She does have a dressing with Gelfoam on the skin tear on her proximal forearm. I advised her and her that in 48 hours to take off the dressing with the Gelfoam and redress it. I did discuss with them they would likely need to remove the Mihci wrap that is holding the splint in place but they can then replace it after they change the dressing on the skin tear. Patient follows with Dr. Oliveira of orthopedics who she will follow-up with. <Stew So - Last Filed: 08/03/20 12:11> - Medical Decision Making Patient was seen with me. I did a inll-yd-apes examination with the patient. Patient presents after a fall. Patient states she forgot that her removed a handrail yesterday. Patient states she went to grab the handrail and fell because it was not there. Patient did hit her head. Patient denies any loss of consciousness. Patient complains of pain over her right wrist, right elbow, right hip, and right knee. Patient also complains of some mild pain over her left wrist. Patient denies any paresthesias or weakness. Vital signs are stable. Patient is afebrile. Patient is in no acute distress. Musculoskeletal exam reveals tenderness over the right elbow and right wrist. There is also mild tenderness over the right hip and right knee. Range of motion was limited in all motions of the right elbow, right wrist, right hip and right knee. There is no obvious deformity noted. There is a skin tear noted over the right elbow. There are superficial abrasions noted over the right periorbital area. There is mild tenderness over the left wrist. Radial pulses are equal bilaterally. Sensation was intact light touch bilateral in the upper and lower extremities. CT scan of the brain and cervical spine were obtained and were within normal limits. Chest x-ray does not show any acute process. X-ray of the right hip, right knee, right elbow, and left wrist were obtained and were unremarkable. X- ray of the right wrist shows an avulsion fracture of the triquetrium. Patient was placed in a Ortho-Glass volar splint. Patient was instructed to ice and elevate the right wrist. Gelfoam and gauze dressing was applied to the skin tear of the right elbow area. Patient was instructed to follow-up with her primary care physician in 5 to 7 days. Patient and her understood and were agreeable with the plan. All questions were answered. <Hoang Coronado - Last Filed: 08/03/20 13:25> Procedures - Upper Extremity Splints Upper Extremity Splint: Orthoglass, Volar Splint Fabrication: Fabricated Location: Right <Stew So - Last Filed: 08/03/20 12:11> ED Disposition <Stew So - Last Filed: 08/03/20 12:11> <Hoang Coronado - Last Filed: 08/03/20 13:25> - Plan for ED Patient: Disposition: Home or Assisted Living Diagnosis: Closed head injury, Facial abrasion, Contusion of right elbow and forearm, Skin tear of right forearm without complication, Triquetral fracture, Contusion of right hip and thigh, Contusion of right knee, Abrasion, right knee, initial encounter, Sprain of left wrist, Morbid obesity, Chronic renal failure, stage 3 (moderate), Diabetes mellitus type 2 in obese, Essential (primary) hypertension Instructions: ED Abrasion, ED EXTREMITY CONTUSION Lower, ED EXTREMITY CONTUSION Upper, ED Head Injury Adult Prescriptions: Oxycodone HCl/Acetaminophen [Percocet 5/325] 1 tab PO Q6H PRN PRN 3 Days #12 tab PRN Reason: Pain Prescription Printed Ondansetron [Zofran Odt] 4 mg PO Q8H PRN PRN #10 tab PRN Reason: Nausea Transmission Status: Received by [id number] Referrals: Veronica Oquendo DO [Primary Care Provider] - 3-5 Days Will Oliveira MD [STAFF PHYSICIAN] - As soon as possible
[2020-08-03] MEDS: Ondansetron 4 MG/2 ML Vial IV ×2 (10:08→11:35)
[2020-08-03] MEDS: Morphine 4 MG/ML Syringe IV ×2 (10:08→11:34)
[2020-08-03 10:19] LABS: Absolute Lymphocyte Count 0.88 X10^3/uL (0.83-4.51); Absolute Neutrophil Count 4.4 X10^3/uL (2.0-7.7); Basophil# 0.05 X10^3/uL; Basophil% 0.8 % (0-1); Eosinophil# 0.19 X10^3/uL; Hematocrit 39.4 % (37-47); Hemoglobin 12.5 g/dL (12.0-15.0); Lymphocyte # 0.88 X10^3/ul (4.0); Mean Corp Hgb Conc 31.7 g/dL (32-36); Mean Corpuscular Hgb 29.7 pg (27.0-32.0); Mean Corpuscular Volume 93.6 fL (81-99); Mean Platelet Vol. 9.6 fl (6.2-12.0); Monocyte# 0.69 X10^3/uL; NRBC Flagged by Analyzer 0 % (0-5); Neutrophil # 4.39 X10^3/uL (2.7-7.7); Neutrophil % 69.6 % (47-70); Platelet Count 280 K/mm3 (150-450); RBC Distribution Width CV 14.9 % (11.6-14.6); RBC Distribution Width SD 51.7 fl (35.1-43.9); Red Blood Count 4.21 M/mm3 (4.2-5.4); White Blood Count 6.3 K/mm3 (4.4-11.0)
[2020-08-03 11:04] LABS: Anion Gap 5 (5-15); BUN 32 mg/dL (7-18); BUN/Creat Ratio 17.9 RATIO (10-20); Calcium,Total 10.2 mg/dL (8.5-10.1); Chloride 107 mmol/L (98-107); Creatinine, Serum 1.79 mg/dL (0.55-1.02); EST Glomerular Filtration Rate 30 mL/min (>60); Est Glom Filt Rate - Afr Amer 36 mL/min (>60); Estimated Creatinine Clearance 27.77 ml/min; Glucose 109 mg/dL (74-106); Sodium Level 141 mmol/L (136-145)
--- NOTE | 2020-08-03 11:16 | RAD_ITS ---
STUDY: X-RAY - LEFT WRIST REASON FOR EXAM: Female, 69 years old. FALL, PAIN TECHNIQUE: 3 view(s) of the wrist were obtained. COMPARISON: None. FINDINGS: Normal visualized distal radius and ulna. Normal radiocarpal articulation. Normal distal radioulnar articulation. Normal carpal bones. Normal carpal articulations. There is degenerative arthrosis of the carpometacarpal articulation of the thumb. Normal second through fifth carpometacarpal articulations. Normal visualized metacarpal bones. Soft tissue swelling RAD/Wrist min 3 Views IMPRESSION: Soft tissue swelling. Electronically Signed: Anam Larios, at 12:00 EDT , Service support ,
--- NOTE | 2020-08-03 11:30 | NURSING ---
surgifoam applied to rt forearm per provider.
[2020-08-03 12:01] VITALS: BP 132/61; PULSE 85
[2020-08-03 12:32] VITALS: BP 132/61; PULSE 85; RESP 18
== END 2020-08-03 12:36 | disposition home or self-care (01) ==
PROVIDERS: Emergency Provider Physician Assistant Medical; PCP Internal Medicine
DX: S09.90XA Unspecified injury of head, initial encounter (principal); S00.81XA Abrasion of other part of head, initial encounter; S50.01XA Contusion of right elbow, initial encounter; S50.11XA Contusion of right forearm, initial encounter; S51.811A Laceration without foreign body of right forearm, initial encounter; S62.113A Displaced fracture of triquetrum [cuneiform] bone, unspecified wrist, initial encounter for closed fracture; S70.01XA Contusion of right hip, initial encounter; S70.11XA Contusion of right thigh, initial encounter; S80.01XA Contusion of right knee, initial encounter; S63.502A Unspecified sprain of left wrist, initial encounter; J85.2 Abscess of lung without pneumonia; E66.01 Morbid (severe) obesity due to excess calories; E11.22 Type 2 diabetes mellitus with diabetic chronic kidney disease; I12.9 Hypertensive chronic kidney disease with stage 1 through stage 4 chronic kidney disease, or unspecified chronic kidney disease; N18.3 Chronic kidney disease, stage 3 (moderate); I48.91 Unspecified atrial fibrillation; J44.9 Chronic obstructive pulmonary disease, unspecified; Z87.891 Personal history of nicotine dependence; Z79.82 Long term (current) use of aspirin; Z79.4 Long term (current) use of insulin; Z79.02 Long term (current) use of antithrombotics/antiplatelets; W10.9XXA Fall (on) (from) unspecified stairs and steps, initial encounter
CPT/HCPCS: 29105; 36415; 70450; 71045; 71250; 72125; 73080; 73110; 73502; 73560; 80048; 85025; 90715; 93005; 96374; 96375; 96376; 99285; A4216; J2405

== ENCOUNTER → 2020-08-03 12:47 | Outpatient (CLI) | payer MEDICARE, OTHER, SELFPAY ==
[2020-07-17 14:35] VITALS: BMI 40.6
[2020-08-03 09:26] VITALS: BMI 35.4
--- NOTE | 2020-08-03 12:49 | CT_ITS ---
STUDY: CT CHEST WITHOUT CONTRAST REASON FOR EXAM: Female, 69 years old. Lt lung abscess f/u RADIATION DOSAGE (If Supplied By Facility): CTDIvol = ( 20.01 ) mGy, DLP = ( 792.53 ) mGycm TECHNIQUE: Transaxial imaging was performed without the administration of intravenous contrast material. Multiplanar coronal and sagittal images were reformatted. Individualized dose optimization techniques were used for this CT. COMPARISON: Comparison is made with prior study dated 04/16/2020. FINDINGS: Stable scarring in both upper lobes more prominent in the left upper lobe. Mild scarring at the lung bases. Persistent 2.2 cm x 1.4 cm pleural-based nodule in the peripheral lateral aspect of the left lower lobe. This is unchanged. Scattered bilateral calcified granulomas. There are calcifications of the coronary arteries. Normal mediastinum. Normal hilar regions. Normal unenhanced pulmonary arteries. There is atherosclerotic calcification of the aortic arch with tortuosity and elongation of the aortic arch and descending thoracic aorta. There are multi-level degenerative changes of the thoracic spine. There is no demonstrated abnormality of the visualized upper abdomen. CT/Chest without Contrast IMPRESSION: Stable examination. Electronically Signed: Anam Larios, at 13:28 EDT , Service support ,
== END ==
PROVIDERS: PCP Internal Medicine; Referring Provider Internal Medicine Pulmonary Disease; Visit Provider Internal Medicine Pulmonary Disease
DX: J85.2 Abscess of lung without pneumonia (principal)
CPT/HCPCS: 71250

== ENCOUNTER → 2020-08-23 12:12 | Outpatient (CLI) | payer MEDICARE, OTHER, SELFPAY ==
[2020-08-03 09:26] VITALS: BMI 35.4
[2020-08-23 15:28] LABS: Hematocrit 40.3 % (37-47); Hemoglobin 12.4 g/dL (12.0-15.0); Mean Corp Hgb Conc 30.8 g/dL (32-36); Mean Corpuscular Volume 94.2 fL (81-99); Platelet Count 373 K/mm3 (150-450); RBC Distribution Width CV 14.9 % (11.6-14.6); RBC Distribution Width SD 51.3 fl (35.1-43.9); Red Blood Count 4.28 M/mm3 (4.2-5.4); White Blood Count 11.1 K/mm3 (4.4-11.0)
[2020-08-23 15:48] LABS: Albumin, Serum 3.8 g/dL (3.2-5.0); BUN 47 mg/dL (7-18); BUN/Creat Ratio 26.4 RATIO (10-20); Calcium,Total 10.1 mg/dL (8.5-10.1); Chloride 106 mmol/L (98-107); Creatinine, Serum 1.78 mg/dL (0.55-1.02); EST Glomerular Filtration Rate 30 mL/min (>60); Est Glom Filt Rate - Afr Amer 36 mL/min (>60); Glucose 110 mg/dL (74-106); Magnesium 1.9 mg/dL (1.6-2.6); Phosphorus 3.1 mg/dL (2.5-4.9); Potassium 3.9 mmol/L (3.5-5.1); Sodium Level 138 mmol/L (136-145); Uric Acid 4.8 mg/dL (2.6-6.0)
[2020-08-23 15:52] LABS: Vitamin D,25 Hydroxy 47.7 ng/mL
[2020-08-23 16:16] LABS: Microalbumin,Random Urine < 5.0 mg/L (NO RANGE EST.)
[2020-08-24 08:21] LABS: PTHIN 42.9 pg/mL (18.4-80.1)
== END ==
PROVIDERS: PCP Internal Medicine; Referring Provider Internal Medicine Nephrology; Visit Provider Internal Medicine Nephrology
DX: N18.4 Chronic kidney disease, stage 4 (severe) (principal); D63.1 Anemia in chronic kidney disease; E55.9 Vitamin D deficiency, unspecified; M10.9 Gout, unspecified
CPT/HCPCS: 36415; 80069; 82043; 82306; 82570; 83735; 83970; 84550; 85027

== ENCOUNTER 2020-08-29 10:00 | Outpatient (RCR) | payer MEDICARE, OTHER, SELFPAY ==
[2020-07-17 14:35] VITALS: BMI 40.6
== END 2020-08-29 23:59 ==
LOC: DC 10:00
PROVIDERS: PCP Internal Medicine; Visit Provider Internal Medicine
DX: Z71.3 Dietary counseling and surveillance (principal); E11.65 Type 2 diabetes mellitus with hyperglycemia; I10 Essential (primary) hypertension
CPT/HCPCS: 97802; 97803; G0108

== ENCOUNTER 2020-09-19 13:55 | Outpatient (RCR) | payer MEDICARE, OTHER, SELFPAY | END 2020-09-19 23:59 | disposition home or self-care (01) | LOC: DC 13:55 | PROVIDERS: PCP Internal Medicine; Visit Provider Internal Medicine | DX: Z71.3 Dietary counseling and surveillance (principal); E11.65 Type 2 diabetes mellitus with hyperglycemia; I10 Essential (primary) hypertension | CPT/HCPCS: G0108 ==

== ENCOUNTER 2020-11-14 09:08 | Emergency (ER) | payer MEDICARE, OTHER, SELFPAY ==
[2020-11-14 09:09] VITALS: BP 146/95; PULSE 88; RESP 18; TEMP 36.6; O2SAT 88; BMI 41.7
[2020-11-14 09:13] VITALS: O2SAT 93
--- NOTE | 2020-11-14 09:24 | CT_ITS ---
STUDY: CT LUMBAR SPINE WITHOUT CONTRAST REASON FOR EXAM: Female, 69 years old. FALL--LOW BACK PAIN -- HIT HEAD--NO LOC -- SURG-BACK FUSION,SKIN CA,DIAB,HTN,COPD RADIATION DOSAGE (If Supplied By Facility): CTDIvol = ( 35.90 ) mGy, DLP = ( 1079.21 ) mGycm TECHNIQUE: The patient was scanned in a multi detector CT scanner. High resolution transaxial imaging was performed. Images were obtained from L1 to S1 vertebral level. Sagittal and coronal images were reconstructed. Individualized dose optimization techniques were used for this CT. COMPARISON: None FINDINGS: Normal lumbar lordosis. There is a levoscoliosis of the lumbar spine. There is evidence of prior laminectomy and interpedicular screw and francoise fixation at the L4-L5 and L5-S1 levels. L1-2: Facet joint osteoarthritis and hypertrophy. No significant stenosis is seen. L2-3: Mild degree of disc space narrowing. Facet joint osteoarthritis and hypertrophy. There is evidence of diffuse posterior disc bulge. Mild to moderate degree of central canal stenosis. L3-4: Moderate degree of disc space narrowing and disc degeneration. Facet joint osteoarthritis and hypertrophy. Mild diffuse posterior disc bulge. Moderate degree of bilateral neural foraminal stenosis worse on the left side. L4-5: Status post laminectomy and interpedicular screw fixation. There is no evidence of spinal stenosis. Postoperative soft tissue changes are seen posteriorly. L5-S1: The patient is status post interpedicular screw fixation and laminectomy. There is a grade 1 anterior listhesis of L5 on S1. Postoperative soft tissue changes seen overlying the operative site. Atherosclerotic plaque formation of the abdominal aorta. CT/Spine Lumbar without Contrast IMPRESSION: Status post laminectomy and fusion at the L4-L5 and L5-S1 levels. Multilevel degenerative changes and spinal stenosis at the L3-L4 and L2-L3 levels. Electronically Signed: Anam Larios, at 10:15 EST , Service support ,
--- NOTE | 2020-11-14 09:24 | CT_ITS ---
STUDY: CT BRAIN WITHOUT CONTRAST REASON FOR EXAM: Female, 69 years old. FALL--LOW BACK PAIN -- HIT HEAD--NO LOC -- SURG-BACK FUSION,SKIN CA,DIAB,HTN,COPD RADIATION DOSAGE (If Supplied By Facility): CTDIvol = ( 44.99 ) mGy, DLP = ( 829.85 ) mGycm TECHNIQUE: Transaxial CT imaging of the brain was performed without administration of intravenous contrast material. Individualized dose optimization techniques were used for this CT. COMPARISON: Comparison is made with prior study dated 08/03/2020. FINDINGS: Normal soft tissue structures. There is hyperostosis frontalis internus. There is mild cerebral atrophy with widening of the extra-axial spaces and ventricular dilatation. Normal white matter tracts of the cerebral hemispheres. Normal basal ganglia and thalami. Normal brainstem. Normal cerebellum. There is no intracranial hemorrhage. There are no findings of an acute ischemic infarction. Atherosclerotic calcification of the vertebral arteries and cavernous portions of the internal carotid arteries bilaterally. Normal visualized paranasal sinuses. CT/Brain/Head without Contrast IMPRESSION: Chronic involutional changes of the brain. Electronically Signed: Anam Larios, at 10:00 EST , Service support ,
--- NOTE | 2020-11-14 09:26 | ED.VIS.GEN ---
History of Present Illness Chief Complaint: Fall Informant: Patient Narrative: 69-year-old female presenting via EMS after a fall. She states that she slipped on a rug but has been present for about 2 weeks. States that she fell down landing on her buttocks and then struck the back of her head. No loss of consciousness no vomiting. She denies being on any blood thinners. She tells me that most of her pain is in her low back. She denies any radicular symptoms. She denies any arm leg chest or abdominal symptoms. - Past Medical History (1) Chronic renal failure, stage 3 (moderate) Status: Chronic (2) Pulmonary hypertension Status: Chronic (3) Obstructive sleep apnea Status: Chronic (4) Morbid obesity Status: Chronic (5) Diabetes mellitus type 2 in obese Status: Chronic (6) GERD (gastroesophageal reflux disease) Status: Chronic (7) Hyperuricemia Status: Chronic (8) Venous insufficiency of both lower extremities Status: Suspected (9) Diabetes Status: Chronic (10) Paroxysmal atrial fibrillation Status: Chronic (11) Essential (primary) hypertension Status: Chronic (12) Hyperlipidemia Status: Chronic (13) Asthma Status: Chronic (14) Sarcoidosis Status: Chronic Past Medical History - Allergies and Home Meds Allergies/Adverse Reactions: Allergies clindamycin Allergy (Verified 11/14/20 09:09) Rash insulin detemir [From Levemir U-100 Insulin] Allergy (Verified 11/14/20 09:09) Rash ciprofloxacin Adverse Reaction (Mild, Verified 11/14/20 09:09) Upset Stomach amoxicillin trihydrate [From Augmentin] Adverse Reaction (Verified 11/14/20 09:09) Nausea also yeast infection morphine Adverse Reaction (Verified 11/14/20 09:09) Nausea potassium clavulanate [From Augmentin] Adverse Reaction (Verified 11/14/20 09:09) Nausea Primary Care Physician: Veronica Oquendo DO [Primary Care Provider] - Prior records reviewed: Yes Surgical History: cholecystectomy, hysterectomy, total knee arthroplasty, - - Lumbar back surgery, foot surgery, Lives: Spouse/ Significant Other Smoking Status: Former smoker Drugs: None - Family History Paternal Family History: Family History (Last Reviewed 07/17/20 @ 14:[address] Salvador Velazquez MD) Father Hypertension Colon cancer Cancer Mother Hypertension Heart disease Diabetes Family History: Reports: Cancer - lung cancer Maternal Family History: Family History (Last Reviewed 07/17/20 @ 14:[address] Salvador Velazquez MD) Father Hypertension Colon cancer Cancer Mother Hypertension Heart disease Diabetes Family History: Reports: COPD, Hypertension Sibling Family History: Family History (Last Reviewed 07/17/20 @ 14:[address] Salvador Velazquez MD) Father Hypertension Colon cancer Cancer Mother Hypertension Heart disease Diabetes Family History: Reports: Diabetes Review of Systems General: Denies: Chills, Fever, Sweats Eyes: Denies: Visual changes - bilaterally, Diplopia ENT: Denies: Rhinorrhea, Sore throat Cardiovascular: Denies: Chest pain, Palpitations Respiratory: Denies: Dyspnea, Cough, Dyspnea on exertion Gastrointestinal: Denies: Abdominal pain, Nausea, Vomiting, Diarrhea, Melena, Hematochezia Genitourinary: Denies: Dysuria, Hematuria, Frequency Musculoskeletal: Reports: Back pain. Denies: Extremity Pain Skin: Denies: Rash, Wounds Neurological: Denies: Headache, Weakness, Numbness Physical Exam Vital Signs/Narrative: Vital Signs Temp Pulse Resp BP Pulse Ox 11/14/20 09:13 93 11/14/20 09:09 97.9 F 88 18 146/95 H 88 Inital Vital Signs reviewed: Yes General: Well nourished, Well developed, Obese, No Acute Distress Head: Normocephalic, Atraumatic Eyes: Perrl, EOMI ENT: Moist mucous membranes, No rhinorrhea Neck: Supple, Nontender Cardiovascular: Regular rate, Regular rhythm, No murmurs Respiratory: No distress, CTA bilaterally, Chest nontender Abdomen: Soft, Nontender, Nondistended, Normal bowel sounds Back: - - Patient has diffuse lumbar tenderness. Simply laying my gloved hands lately on her back causes her to have pain Extremities: Nontender, No edema Skin: Normal color, No rash Neurological: Alert, Oriented x3, Cranial nerves II-XII grossly intact, Normal Strength, Normal Sensation Psychological: Normal affect, Normal Mood Diagnostic/Tx/Re-eval Clinical Impression(s) from Imaging Studies Brain CT 11/14/20 09:24 IMPRESSION: Chronic involutional changes of the brain. Electronically Signed: Anam Larios, at 10:00 EST , Service support , Lumbar Spine CT 11/14/20 09:24 IMPRESSION: Status post laminectomy and fusion at the L4-L5 and L5-S1 levels. Multilevel degenerative changes and spinal stenosis at the L3-L4 and L2-L3 levels. Electronically Signed: Anam Larios, at 10:15 EST , Service support , - Medical Decision Making CT of the head and lumbar spine were read by radiology as negative and were reviewed by me. Patient received 1/2 mg of Dilaudid and Zofran. I asked the patient what type of pain medicine she does well with and she states she does well with Tylenol arthritis. She had some this morning. Patient was advised that she is going to be sore and she should expect to be resting. She is comfortable being discharged. ED Disposition - Plan for ED Patient: Disposition: Home or Assisted Living Diagnosis: Fall, Head injury, Acute lumbar myofascial strain Instructions: ED Head Injury (Adult), ED Back Sprain/Strain Referrals: Veronica Oquendo, DO [Primary Care Provider] - As Needed Additional Instructions: You should expect soreness and decreased range of motion. I recommend rest and heat.
[2020-11-14] MEDS: HYDROmorphone 0.5 MG/0.5 ML SYRINGE IV (09:45)
[2020-11-14] MEDS: Ondansetron 4 MG/2 ML Vial IV (09:45)
== END 2020-11-14 11:00 | disposition home or self-care (01) ==
PROVIDERS: Emergency Provider Emergency Medicine; PCP Internal Medicine
DX: S39.012A Strain of muscle, fascia and tendon of lower back, initial encounter (principal); S09.90XA Unspecified injury of head, initial encounter; W01.0XXA Fall on same level from slipping, tripping and stumbling without subsequent striking against object, initial encounter; Y93.9 Activity, unspecified; Y92.9 Unspecified place or not applicable; Y99.9 Unspecified external cause status; E11.22 Type 2 diabetes mellitus with diabetic chronic kidney disease; I12.9 Hypertensive chronic kidney disease with stage 1 through stage 4 chronic kidney disease, or unspecified chronic kidney disease; I27.20 Pulmonary hypertension, unspecified; N18.30 Chronic kidney disease, stage 3 unspecified; I48.0 Paroxysmal atrial fibrillation; D86.9 Sarcoidosis, unspecified; I87.2 Venous insufficiency (chronic) (peripheral); E78.5 Hyperlipidemia, unspecified; J45.909 Unspecified asthma, uncomplicated; G47.33 Obstructive sleep apnea (adult) (pediatric); E66.01 Morbid (severe) obesity due to excess calories; Z79.4 Long term (current) use of insulin; Z79.899 Other long term (current) drug therapy; Z87.891 Personal history of nicotine dependence
CPT/HCPCS: 70450; 72131; 96374; 96375; 99284; A4216; J2405

== ENCOUNTER 2020-11-19 15:36 | Observation (INO) | payer MEDICARE, OTHER, SELFPAY ==
[2020-11-19 16:50] VITALS: BP 135/79; PULSE 90; RESP 16; TEMP 36.7; BMI 37.8
--- NOTE | 2020-11-19 17:13 | ED.RN ---
pt taking tizanidine and norco at home. prescribed on 11/16
--- NOTE | 2020-11-19 17:34 | CT_ITS ---
STUDY: CT ABDOMEN AND PELVIS WITHOUT CONTRAST REASON FOR EXAM: Female, 69 years old. Back pain after fall 3 days ago, hit numbness, history of back surgery RADIATION DOSAGE (If Supplied By Facility): CTDIvol = ( 17.15 ) mGy, DLP = ( 865.50 ) mGycm TECHNIQUE: Transaxial images were obtained from the dome of the diaphragm to the symphysis pubis without oral contrast, and without intravenous contrast. Sagittal and coronal images were reconstructed. Individualized dose optimization techniques were used for this CT. COMPARISON: None. FINDINGS: There are irregular left lower lobe pulmonary opacities, possibly elongated and branching and connected to left lower lobe artery or vein. This is incompletely evaluated but was present on prior CTs and fully described. Refer to CT chest imaging and report. Liver is mildly enlarged without biliary dilation or lesions on noncontrast exam. Gallbladder is removed. There is no biliary dilation. Normal spleen. Normal pancreas. Normal bilateral adrenal glands. Left kidney is end-stage atrophic. Right kidney contains a 4 mm calculus in the lower pole calyx without hydronephrosis. There is no contour deforming mass. Normal visualized stomach. Normal small intestine. Normal colon. The appendix is visualized and appears normal. Aorta is normal caliber with moderate atherosclerosis.. Normal inferior vena cava. Normal retroperitoneum. Normal urinary bladder. There is diastases recti. Uterus is surgically removed. There is compression fracture of L1 and L4-L5-S1 pedicular screw hardware fusion. The skeleton is osteoporotic without destructive lesions. Pelvis is intact and hips are located. Refer to CT lumbar spine report for additional details. CT/Abdomen/Pelvis without Cont IMPRESSION: 1. No acute abdominal findings. 2. Left renal atrophy. 3. Refer to CT lumbar report for additional details. Electronically Signed: Reggie Melara, at 18:53 EST Tel , Service support ,
--- NOTE | 2020-11-19 17:37 | CT_ITS ---
STUDY: CT LUMBAR SPINE WITHOUT CONTRAST REASON FOR EXAM: Female, 69 years old. Back pain after fall 3 days ago, hip numbness, prior surgical fusion RADIATION DOSAGE (If Supplied By Facility): CTDIvol = ( 21.42 ) mGy, DLP = ( 761.84 ) mGycm TECHNIQUE: CT of the lumbar spine was performed without contrast. Sagittal and coronal images were reconstructed. Individualized dose optimization techniques were used for this CT. COMPARISON: Plain films 26 October 2018 FINDINGS: Examination is technically suboptimal. Image noise is moderately to severely increased. The bones are osteoporotic making visualization of osseous details difficult. Osseous assessment is mildly degraded. Evaluation of canal contents is not fully diagnostic. There is mild levoscoliosis. There is grade 1 degenerative anterolisthesis of L5 on S1, less than 5 mm. Remainder of the spine is aligned. SI joints are normal. Paraspinous soft tissues are intact. There is presumably chronic L1 compression fracture involving the superior and inferior endplates without loss of height of the anterior or posterior cortex. There is a superimposed separate right anterior cortical acute fracture without associated paraspinous hematoma. There is a questionable left L2 spinous process cap cortical avulsion fracture. Remainder of the vertebral bodies are intact. There is L4 -- L5-S1 pedicular screw fusion and laminotomy decompression. Hardware is intact and in expected location with normal bone interface. There is probably moderate to severe spondylotic L3-L4 thecal sac stenosis. Canal is decompressed and patent at the surgical levels. There are multilevel various degree chronic foraminal stenoses. CT/Spine Lumbar without Contrast IMPRESSION: 1. Small acute L1 corner fracture. 2. Chronic L1 compression fracture without canal compression. 3. 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 4. Expected appearance of L4-S1 dorsal hardware fusion with fully patent decompressed thecal sac. 5. Osteoporosis. Electronically Signed: Reggie Melara, at 19:19 EST Tel , Service support ,
--- NOTE | 2020-11-19 17:39 | ED.DCSUM_ITS ---
History of Present Illness Chief Complaint: Back Narrative: This patient is a 69-year-old female who presents with severe back pain. She fell last Thursday, 5 days ago. She states she slipped on a rug and fell backwards. She was seen in the emergency department at that time. She had a CT of her lumbar spine which was negative for fracture. She was discharged. She was advised on supportive care such as Tylenol and rest. She states she has been bedridden since that time. She is unable to ambulate due to pain. Her has been feeding her while she is lying in bed and she has been using a women's urinal for urination and has not had a bowel movement. She denies weakness or numbness but does complain of severe lower back pain. She was also complaining of some left shoulder pain since the fall as well. She denies any other recent medical illness such as fevers cough chest pain difficulty breat lu vomiting. Past Medical History - Allergies and Home Meds Allergies/Adverse Reactions: Allergies clindamycin Allergy (Verified 11/19/20 16:55) Rash insulin detemir [From Levemir U-100 Insulin] Allergy (Verified 11/19/20 16:55) Rash ciprofloxacin Adverse Reaction (Mild, Verified 11/19/20 16:55) Upset Stomach amoxicillin trihydrate [From Augmentin] Adverse Reaction (Verified 11/19/20 16:55) Nausea also yeast infection morphine Adverse Reaction (Verified 11/19/20 16:55) Nausea potassium clavulanate [From Augmentin] Adverse Reaction (Verified 11/19/20 16:55) Nausea Primary Care Physician: Veronica Oquendo DO [Primary Care Provider] - Past Medical History: - - Diabetes, hypertension, atrial fibrillation, not on anticoagulation Surgical History: cholecystectomy, hysterectomy, total knee arthroplasty, - - Lumbar back surgery, foot surgery, Smoking Status: Former smoker - Family History Paternal Family History: Family History (Last Reviewed 07/17/20 @ 14:[address] Salvador Velazquez MD) Father Hypertension Colon cancer Cancer Mother Hypertension Heart disease Diabetes Family History: Reports: Cancer - lung cancer Maternal Family History: Family History (Last Reviewed 07/17/20 @ 14:[address] Salvador Velazquez MD) Father Hypertension Colon cancer Cancer Mother Hypertension Heart disease Diabetes Family History: Reports: COPD, Hypertension Sibling Family History: Family History (Last Reviewed 07/17/20 @ 14:[address] Salvador Velazquez MD) Father Hypertension Colon cancer Cancer Mother Hypertension Heart disease Diabetes Family History: Reports: Diabetes Review of Systems All systems negative except as indicated General: Denies: Fever Eyes: Denies: Visual changes - bilaterally ENT: Denies: Bilateral ear pain Cardiovascular: Denies: Chest pain Respiratory: Denies: Dyspnea Gastrointestinal: Reports: Abdominal pain. Denies: Nausea, Vomiting, Diarrhea Musculoskeletal: Reports: Back pain, Extremity Pain Skin: Denies: Rash Neurological: Denies: Headache Hematologic: Denies: Easy bruising Allergy: Denies: Uticaria Physical Exam Vital Signs/Narrative: Vital Signs Temp Pulse Resp BP 11/19/20 16:50 98.1 F 90 16 135/79 H Inital Vital Signs reviewed: Yes General: Obese Head: Normocephalic Eyes: EOMI ENT: Moist mucous membranes Neck: Supple Cardiovascular: Regular rate, Regular rhythm Respiratory: No distress, CTA bilaterally Abdomen: Soft, - - Patient has diffuse abdominal tenderness which is greatest in the left lower quadrant without guarding without rebound Back: Spinal tenderness - Patient has midline spinal tenderness over the lumbar spine and sacrum no ecchymosis no Steward Junior or [place] sign Extremities: Nontender Skin: Normal color Neurological: Alert, - - Normal strength and sensation of the lower extremities Psychological: Normal affect Diagnostic/Tx/Re-eval Impressions Abdomen/Pelvis CT 11/19/20 17:34 IMPRESSION: 1. No acute abdominal findings. 2. Left renal atrophy. 3. Refer to CT lumbar report for additional details. Electronically Signed: Reggie Melara at 18:53 EST Tel , Service support , Lumbar Spine CT 11/19/20 17:37 IMPRESSION: 1. Small acute L1 corner fracture. 2. Chronic L1 compression fracture without canal compression. 3. 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 4. Expected appearance of L4-S1 dorsal hardware fusion with fully patent decompressed thecal sac. 5. Osteoporosis. Electronically Signed: Reggie Melara at 19:19 EST Tel , Service support , 11/19/20 17:34 Abdomen/Pelvis without Cont [CT] Stat 11/19/20 17:37 CT Lumbar [Spine Lumbar without Contrast] [CT] Stat Laboratory Results 11/19/20 11/19/20 11/19/20 17:50 17:50 18:20 WBC 7.6 RBC 4.21 Hgb 12.4 Hct 38.2 MCV 90.7 MCH 29.5 MCHC 32.5 RDW Std Deviation 51.4 H RDW Coeff of [place] 16.2 H Plt Count 218 MPV 10.0 Immature Gran % (Auto) 0.800 Neut % (Auto) 74.8 H Lymph % (Auto) 9.4 L [place] % (Auto) 11.9 H Eos % (Auto) 2.6 Baso % (Auto) 0.5 Absolute Neuts (auto) 5.7 Absolute Lymphs (auto) 0.71 L Nucleated RBC % 0 Sodium 139 Potassium 5.0 Chloride 107 Carbon Dioxide 27.0 Anion Gap 5 BUN 45 H Creatinine 1.66 H Estim Creat Clear Calc 22.97 Est GFR (MDRD) Af Amer 39 L Est GFR (MDRD) Non-Af 33 L BUN/Creatinine Ratio 27.1 H Glucose 88 Calcium 10.3 H Urine Color Yellow Urine Clarity Clear Urine pH 6.0 Ur Specific [place] 1.015 Urine Protein Negative Urine Glucose (UA) Normal Urine Ketones Negative Urine Occult Blood Negative Urine Nitrite Negative Urine Bilirubin Negative Urine Urobilinogen Normal Ur Leukocyte Esterase Negative Urine RBC 0 SEEN Urine WBC 0 SEEN Ur Squamous Epith Cells 0 SEEN Urine Bacteria 0 SEEN Urine Mucus 0 SEEN - Medical Decision Making Labs notable for creatinine of 1.66 which is near baseline. Labs otherwise unremarkable. Given her abdominal pain I did obtain a CT of the abdomen repeated a reconstruction of the lumbar spine. This shows a acute fracture of the corner of L1 as well as a chronic L1 compression fracture. Patient was treated here with IV fentanyl. She feels better. However she is concerned that she will be unable to get up and ambulate at home without significant assistance. She feels she may need some rehabilitation or additional home resources. Patient will be discussed with hospitalist and admitted for physical therapy and Occupational Therapy evaluations of case management. ED Disposition - Plan for ED Patient: Disposition: Acute [facility] Diagnosis: L1 vertebral fracture Referrals: Veronica Oquendo DO [Primary Care Provider] -
[2020-11-19] MEDS: Ondansetron 4 MG/2 ML Vial IV (17:53)
[2020-11-19] MEDS: fentaNYL 100 MCG/2 ML Ampul 50 MCG IV (17:53)
[2020-11-19 18:17] LABS: Absolute Lymphocyte Count 0.71 X10^3/uL (0.83-4.51); Absolute Neutrophil Count 5.7 X10^3/uL (2.0-7.7); Basophil# 0.04 X10^3/uL; Basophil% 0.5 % (0-1); Eosinophils% 2.6 % (0-5); Hematocrit 38.2 % (37-47); Hemoglobin 12.4 g/dL (12.0-15.0); Lymphocyte # 0.71 X10^3/ul (4.0); Lymphocyte % 9.4 % (19-41); Mean Corp Hgb Conc 32.5 g/dL (32-36); Mean Corpuscular Hgb 29.5 pg (27.0-32.0); Mean Corpuscular Volume 90.7 fL (81-99); Monocyte% 11.9 % (0-10); NRBC Flagged by Analyzer 0 % (0-5); Neutrophil # 5.67 X10^3/uL (2.7-7.7); Neutrophil % 74.8 % (47-70); Platelet Count 218 K/mm3 (150-450); RBC Distribution Width CV 16.2 % (11.6-14.6); RBC Distribution Width SD 51.4 fl (35.1-43.9); Red Blood Count 4.21 M/mm3 (4.2-5.4); White Blood Count 7.6 K/mm3 (4.4-11.0)
[2020-11-19 18:24] LABS: Anion Gap 5 (5-15); BUN 45 mg/dL (7-18); BUN/Creat Ratio 27.1 RATIO (10-20); Calcium,Total 10.3 mg/dL (8.5-10.1); Chloride 107 mmol/L (98-107); Creatinine, Serum 1.66 mg/dL (0.55-1.02); EST Glomerular Filtration Rate 33 mL/min (>60); Est Glom Filt Rate - Afr Amer 39 mL/min (>60); Estimated Creatinine Clearance 22.97 ml/min; Glucose 88 mg/dL (74-106); Sodium Level 139 mmol/L (136-145)
[2020-11-19 18:30] LABS: Bacteria 0 SEEN /hpf (None Seen); Mucous, Urine 0 SEEN /hpf (<or=2+); Red Blood Cells-Urine 0 SEEN /hpf (0-5); Squamous Epithelial Cells - UA 0 SEEN /hpf (5-10); White Blood Cells 0 SEEN /hpf (0-5)
[2020-11-19 18:46] LABS: Color, Urine Yellow (Yellow); Glucose, Dipstick Normal (Normal); Ketone-Dipstick Negative (Negative); Leukocyte Esterase-Dipstick Negative /ul (Negative); Nitrite-Dipstick Negative (Negative); Occult Blood-Urine Negative /ul (Negative); Protein-Dipstick Negative (Negative); Specific Gravity, Urine 1.015 (1.002-1.030); Urine Bilirubin Dipstick Negative (Negative); Urine Clarity Clear (Clear); Urine Urobilinogen Normal (Normal)
[2020-11-19 19:22] VITALS: BP 116/55; PULSE 89; RESP 16; O2SAT 100
--- NOTE | 2020-11-19 20:58 | HP.PCM_ITS ---
Problem List (1) Chronic renal failure, stage 3 (moderate) Status: Chronic (2) Obstructive sleep apnea Status: Chronic (3) Diabetes mellitus type 2 in obese Status: Chronic (4) GERD (gastroesophageal reflux disease) Status: Chronic (5) Paroxysmal atrial fibrillation Status: Chronic (6) Hyperlipidemia Status: Chronic Qualifiers: Hyperlipidemia type: mixed hyperlipidemia Qualified Code(s): E78.2 - Mixed hyperlipidemia (7) Asthma Status: Chronic History of Present Illness Date of Admission: 11/19/20 Chief Complaint: Back pain. The patient is a 69 year old F with past medical history as mentioned above presented to the emergency room because of back pain. Patient stated that she slipped on a rug around 1 week ago, had a fall backwards and she started having back pain. She came to the emergency department on that day, had CT scan lumbar spine that showed no acute fractures and she was discharged home. Since then, she has been having back pain, mid back pain sometimes goes to the left side of her lower back, sharp pain, 9 out of 10 in severity, aggravated by movement and she has not been able to ambulate due to pain. She has been using urinal at home for urination and had no bowel movement since that time. She mentioned that she had some chronic bilateral lower extremity weakness due to previous back surgeries and hip replacement. She denied numbness or tingling. She denied bowel or bladder incontinence. In the emergency department, her vital signs were stable, was afebrile. Her routine blood work was remarkable for BUN of 45 and creatinine of 1.66 and those are chronic. Urinalysis was unremarkable. CT scan abdomen and pelvis without contrast showed no acute intra-abdominal pathology. Lumbar spine CT scan without contrast revealed small acute L1 corner fracture, chronic L1 compression fracture. She is being for intractable low back pain due to acute small L1 corner fracture. Past Medical History Past Medical History (Chronic Problems): Chronic Problems (Last Reviewed 07/17/20 @ 14:[address] Salvador Velazquez MD) Dysphagia (Chronic) Chronic renal failure, stage 3 (moderate) (Chronic) Pulmonary hypertension (Chronic) Obstructive sleep apnea (Chronic) Noncompliance with CPAP treatment (Chronic) quit wearing CPAP 2 years lorenzana Morbid obesity (Chronic) Diabetes mellitus type 2 in obese (Chronic) GERD (gastroesophageal reflux disease) (Chronic) Hyperuricemia (Chronic) Venous insufficiency of both lower extremities (Chronic) Diabetes (Chronic) Right bundle branch block (RBBB) (Chronic) Paroxysmal atrial fibrillation (Chronic) Essential (primary) hypertension (Chronic) Hyperlipidemia (Chronic) Asthma (Chronic) Sarcoidosis (Chronic) Medical History: Medical History (Last Reviewed 07/17/20 @ 14:[address] Salvador Velazquez MD) Right bundle branch block (RBBB) (Chronic) I45.10 Paroxysmal atrial fibrillation (Chronic) I48.0 Essential (primary) hypertension (Chronic) I10 Hyperlipidemia (Chronic) E78.5 Asthma (Chronic) J45.909 Sarcoidosis (Chronic) D86.9 Chronic obstructive lung disease J44.9 mild GERD (gastroesophageal reflux disease) K21.9 Leukocytosis D72.829 Lung abscess J85.2 Obesity (BMI 30-39.9) E66.9 Obstructive sleep apnea G47.33 On home O2 Z99.81 Osteopenia M85.80 Type 2 diabetes mellitus E11.9 Pneumonia J18.9 Allergies clindamycin Allergy (Verified 11/19/20 16:55) Rash insulin detemir [From Levemir U-100 Insulin] Allergy (Verified 11/19/20 16:55) Rash ciprofloxacin Adverse Reaction (Mild, Verified 11/19/20 16:55) Upset Stomach amoxicillin trihydrate [From Augmentin] Adverse Reaction (Verified 11/19/20 16:55) Nausea also yeast infection morphine Adverse Reaction (Verified 11/19/20 16:55) Nausea potassium clavulanate [From Augmentin] Adverse Reaction (Verified 11/19/20 16:55) Nausea Home Medications: Ambulatory Orders Medication Instructions Recorded Loratadine [Claritin] 10 mg PO DAILY 07/07/14 Alendronate Sodium [Fosamax] 70 mg PO MO 06/21/17 Fluticasone 0.05% [Flonase Nasal 1 spray NASAL DAILY PRN PRN 06/21/17 [place]] Febuxostat [Uloric] 40 mg PO DAILY 12/30/18 Cholecalciferol (VIT D3) [Vitamin 1,000 unit PO DAILY 04/16/20 D3] Cyanocobalamin (Vitamin B-12) 1,000 mcg PO DAILY 06/01/20 [Vitamin B-12] Losartan Potassium [Cozaar] 50 mg PO DAILY #0 06/02/20 fenofibric acid (choline) 135 mg 135 mg PO DAILY 07/17/20 capsule,delayed release fluticasone 500 mcg-salmeterol 50 1 inh INHALATION BID 07/17/20 mcg/dose blistr powdr for inhalation sitagliptin 50 mg tablet 50 mg PO DAILY 07/17/20 tiotropium bromide 1.25 2 puff INHALATION DAILY 07/17/20 mcg/actuation mist for inhalation amlodipine 5 mg tablet 5 mg PO DAILY #90 tab 09/12/20 Cimetidine [Heartburn Relief] 200 mg PO DAILY 11/19/20 Hydrocodone/Acetaminophen 1 tab PO Q4H PRN 11/19/20 [Hydrocodone-Acetamin 5-325 mg] Insulin Glargine [Lantus Solostar 45 unit SC QPM 11/19/20 U-100 Insulin] Mirabegron [Myrbetriq] 50 mg PO DAILY 11/19/20 Montelukast Sodium [Singulair] 10 mg PO QHS 11/19/20 Pantoprazole Sodium [Protonix] 40 mg PO DAILY 11/19/20 Plecanatide [Trulance] 3 mg PO DAILY 11/19/20 Tizanidine HCl [Zanaflex] 4 mg PO BID 11/19/20 Triamterene/Hydrochlorothiazid 1 cap PO DAILY 11/19/20 [Triamterene-Hctz 37.5-25 mg Cp] Surgical History: Surgical History (Last Reviewed 07/17/20 @ 14:[address] 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 Salvador Velazquez MD) Father Hypertension Colon cancer Cancer Mother Hypertension Heart disease Diabetes History Items: Cancer - lung cancer Maternal Family History: Family History (Last Reviewed 07/17/20 @ 14:[address] Salvador Velazquez MD) Father Hypertension Colon cancer Cancer Mother Hypertension Heart disease Diabetes History Items: COPD, Hypertension Sibling Family History: Family History (Last Reviewed 07/17/20 @ 14:[address] Salvador Velazquez MD) Father Hypertension Colon cancer Cancer Mother Hypertension Heart disease Diabetes History Items: Diabetes Review of Systems Constitutional: Reports: Weakness. Denies: Anorexia, Chills, Fever Eyes: Denies: Blurred vision, Double vision, Drainage, Redness HEENT: Denies: Difficulty Hearing, Ear Pain, Eye Pain, Nasal Congestion, Sore Throat Cardiovascular: Denies: Chest Pain, Chest Pressure, Edema, Heaviness, Palpitations, Syncope Respiratory: Denies: Cough, Pleuritic Pain, Shortness of Breath, Sputum production, Wheezing Gastrointestinal: Denies: Abdominal Pain, Constipation, Diarrhea, Nausea, Vomiting Genitourinary: Denies: Dysuria, Frequency, Hematuria Musculoskeletal: Reports: Back Pain. Denies: Arm Pain, Foot Pain Skin: Denies: Dryness, Rash Neurological: Denies: Balance problems, Blurred vision, Double vision, Slurred speech, Confusion, Headaches, Incoordination, Numbness Psychiatric: Denies: Anxiety, Depression Endocrine: Denies: Change in Body Habitus, Polydipsia, Polyuria VTE Information - Inpt Only VTE Present on Admission: No VTE Mechan Device Prophylaxis: None VTE Pharm Prophylaxis ordered?: Yes Patient Problems: Active and Suspected Problems (Last Updated 11/19/20 @ 21:[address] Anahi Gutierrez MD) L1 vertebral fracture (Acute) - Physical Exam Vitals/I&O's: Vital Signs Temp Pulse Resp BP Pulse Ox 98.1 F 89 16 116/55 L 100 11/19/20 16:50 11/19/20 19:22 11/19/20 19:22 11/19/20 19:22 11/19/20 19:22 Oxygen Delivery Method Room Air Weight: 194 lb Body Mass Index (BMI) 37.8 General: Alert, Oriented x3, Cooperative, No apparent distress HEENT: Atraumatic, PERRLA, EOMI, Normocephalic Oral: Moist Mucosa, No Gingival or Mucosal Lesions/ Ulcerations Neck: Supple, No JVD, Negative Carotid Bruits, Trachea Midline, Thyroid Normal Size and Texture Lungs: Clear to auscultation, Normal air movement, No rhonchi, No wheeze, No rales Cardiovascular: Regular rate, Regular Rhythm, Normal S1, Normal S2, PMI Normal Abdomen: Bowel Sounds Present, Soft, Non Tender, Non-Distended, No Hepato-spl enomegaly Extremities: No clubbing, No cyanosis, No edema Skin: No rashes, No breakdown Lymphatic: No Cervical, Supraclavicular, or Inguinal Adenopathy Neurological: Cranial nerves II-XII grossly intact, Motor Exam 5/5 strength throughout Psych/Mental Status: Normal Affect, Appropriate, Alert and oriented to time, place, person, mood and affect Laboratory Results 11/19/20 17:50: WBC 7.6, RBC 4.21, Hgb 12.4, Hct 38.2, MCV 90.7, MCH 29.5, MCHC 32.5, RDW Std Deviation 51.4 H, RDW Coeff of [place] 16.2 H, Plt Count 218, MPV 10.0, Immature Gran % (Auto) 0.800, Neut % (Auto) 74.8 H, Lymph % (Auto) 9.4 L, [place] % (Auto) 11.9 H, Eos % (Auto) 2.6, Baso % (Auto) 0.5, Absolute Neuts (auto) 5.7, Absolute Lymphs (auto) 0.71 L, Nucleated RBC % 0 11/19/20 17:50: Sodium 139, Potassium 5.0, Chloride 107, Carbon Dioxide 27.0, Anion Gap 5, BUN 45 H, Creatinine 1.66 H, Estim Creat Clear Calc 22.97, Est GFR (MDRD) Af Amer 39 L, Est GFR (MDRD) Non-Af 33 L, BUN/Creatinine Ratio 27.1 H, Glucose 88, Calcium 10.3 H 11/19/20 18:20: Urine Color Yellow, Urine Clarity Clear, Urine pH 6.0, Ur Specific [place] 1.015, Urine Protein Negative, Urine Glucose (UA) Normal, Urine Ketones Negative, Urine Occult Blood Negative, Urine Nitrite Negative, Urine Bilirubin Negative, Urine Urobilinogen Normal, Ur Leukocyte Esterase Negative, Urine RBC 0 SEEN, Urine WBC 0 SEEN, Ur Squamous Epith Cells 0 SEEN, Urine Bacteria 0 SEEN, Urine Mucus 0 SEEN Clinical Impression(s) from Imaging Studies Abdomen/Pelvis CT 11/19/20 17:34 IMPRESSION: 1. No acute abdominal findings. 2. Left renal atrophy. 3. Refer to CT lumbar report for additional details. Electronically Signed: Reggie Melara, at 18:53 EST Tel , Service support , Lumbar Spine CT 11/19/20 17:37 IMPRESSION: 1. Small acute L1 corner fracture. 2. Chronic L1 compression fracture without canal compression. 3. 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 4. Expected appearance of L4-S1 dorsal hardware fusion with fully patent decompressed thecal sac. 5. Osteoporosis. Electronically Signed: Reggie Melara, at 19:19 EST Tel , Service support , Assessment/Plan All Active Problems (Last Updated 11/19/20 @ 21:[address] Anahi Gutierrez MD) L1 vertebral fracture (Acute) This is a 69 years old female patient presented to the emergency room because of persistent low back pain, found to have small acute L1 corner fracture and she is being admitted for treatment. #1 intractable low back pain/acute small L1 corner fracture: Without evidence of radiculopathy or nerve compression. CT scan of the lumbar spine and abdomen as well as pelvis reviewed. Plan: Admit to [facility] floor for observation, OxyIR as needed for pain, IV morphine as needed, gentle IV fluids for hydration, IV antiemetics, PT OT evaluation and treatment, patient may need placement to retirement facility. #2 COPD/chronic respiratory failure: Currently, she is on room air. Denied symptoms of worsening shortness of breath or wheezing. Plan for albuterol as needed, continue Advair. #3 type 2 diabetes mellitus: ADA diet, Accu-Cheks, insulin sliding scale, continue Lantus insulin and sitagliptin. #4 stage III chronic kidney disease: Kidney function stable at baseline. #5 hypertension: Blood pressure stable, continue home medications. #6 hyperlipidemia: Continue on fenofibric acid. #7 DVT prophylaxis: Subcu heparin. This note was generated with [employer]un[employer] software. It may contain incorrect words, spelling, and punctuation that were not noted in checking the note before signing. OBSV E&M: [id number] Initial observation care L2
[2020-11-19 21:10] VITALS: BP 109/57; PULSE 89; RESP 16; TEMP 36.7; O2SAT 100
[2020-11-19 22:00] VITALS: BP 146/72; PULSE 86; RESP 18; TEMP 37.2; O2SAT 95
[2020-11-19 22:01] VITALS: BMI 33.6
[2020-11-19 22:11] VITALS: BMI 33.7
[2020-11-19 22:41] LABS: Bedside Glucose 99 mg/dL (70-110)
[2020-11-19] MEDS: 0.9% Normal Saline 1,000 ML 75 ML IV (22:48)
[2020-11-19] MEDS: Heparin Injection (Vial) 5,000 UNIT/ML VIAL 5000 UNIT SC (23:01)
[2020-11-19] MEDS: Montelukast 10 MG Tablet PO (23:02)
[2020-11-19] MEDS: Morphine 2 MG/ML Syringe IV (23:02)
[2020-11-19] MEDS: 0.9% Saline Lock 10 ML Syringe IV (23:08)
[2020-11-20 04:04] VITALS: BP 130/66; PULSE 85; RESP 18; TEMP 36.8; O2SAT 96
[2020-11-20] MEDS: Heparin Injection (Vial) 5,000 UNIT/ML VIAL 5000 UNIT SC ×2 (06:31→15:03)
[2020-11-20] MEDS: 0.9% Saline Lock 10 ML Syringe IV (06:38)
[2020-11-20] MEDS: Morphine 2 MG/ML Syringe IV (06:38)
[2020-11-20 06:41] LABS: Bedside Glucose 131 mg/dL (70-110)
[2020-11-20 07:03] VITALS: PULSE 85; RESP 20; O2SAT 94
[2020-11-20] MEDS: Budesonide Respules 0.5 MG/2 ML AMPUL.NEB. INHALATION ×2 (07:03→19:11)
[2020-11-20] MEDS: Ipratropium/Albuterol Sulfate 3 ML AMPUL.NEB INHALATION ×2 (07:03→19:11)
[2020-11-20 08:30] VITALS: BP 108/48; PULSE 92; RESP 18; TEMP 36.6; O2SAT 92
[2020-11-20] MEDS: Triamterene 37.5MG/Hctz 25MG Capsule 1 CAP PO (08:37)
[2020-11-20] MEDS: Loratadine 10 MG Tablet PO (08:37)
[2020-11-20] MEDS: Acetaminophen 325 MG Tablet 650 MG PO ×2 (08:37→15:03)
[2020-11-20] MEDS: Lidocaine 5% Patch 1 PATCH TOPICAL (08:37)
[2020-11-20] MEDS: amLODIPine 5 MG Tablet PO (08:37)
[2020-11-20] MEDS: diazePAM 2 MG Tablet PO ×2 (08:37→16:33)
[2020-11-20] MEDS: Losartan Potassium 50 MG Tablet PO (08:37)
[2020-11-20] MEDS: tiZANidine HCl 2 MG Tablet 4 MG PO (08:38)
[2020-11-20] MEDS: Pantoprazole Sodium 40 MG Tablet PO (08:38)
[2020-11-20] MEDS: Mirabegron 50 MG TAB.ER.24H PO (08:39)
[2020-11-20] MEDS: Febuxostat 40 MG TABLET PO (08:39)
[2020-11-20] MEDS: Polyethylene Glycol 3350 17 GM PACKET PO (11:16)
[2020-11-20] MEDS: Insulin Lispro 100 UNIT/ML INSULN.PEN SC ×2 (11:17→16:33)
[2020-11-20 11:20] VITALS: BP 95/46; PULSE 71; RESP 18; TEMP 36.4; O2SAT 97
[2020-11-20 11:35] LABS: Bedside Glucose 165 mg/dL (70-110)
--- NOTE | 2020-11-20 11:41 | CASEMGMT ---
Social Work Note PT updated this worker that SNF is being recommended. SW in to speak with pt. Pt's Willian present in room. Pt gave this worker permission to speak to her in front of her guest. Pt is alert and orientated, pt's assisted with answering some questions. Living Arrangements: Pt states she lives with her in a one story home. There are three steps to enter from the garage and three steps to enter from the front porch. DME: Cane, Walker, Oxygen at night through [employer]. PCP: Dr. Oquendo Pharmacy: [facility] C: Current with [facility] SNF: None Advanced Directives: Pt states she has completed both, states her Willian is HCPOA Substance Abuse Hx: Pt used to smoke Cigarettes, quit in the mid 80s. Denied other substance abuse/use Mental Health Hx: Pt denied SW spoke with pt and Willian regarding discharge planning. Pt and Willian agreeable to SNF. SW provided pt with list of SNF that accept her insurance. Pt and Willian agreeable to [facility] TCU. SW informed pt and Willian that this worker had spoken to TCU earlier today, they would likely have a bed available today, would just need to run insurances and finances. Willian stated that the RN through [facility] stated pt needed an MRI and orthopedic surgeon consult. SW informed Willian that this worker will relay information to RN and physician. Willian and pt state understanding. DEEJAY spoke with Anahy in TCU, confirms she is able to accept pt today, will need a COVID. SW updated physician that pt can admit to TCU today, will need a COVID, and that pt's mentioned MRI and ortho consult. RN also updated. Plan: Likely TCU today Alannah Odom [employer], [employer]
--- NOTE | 2020-11-20 12:00 | PCM.TXEXTCAR ---
- Diet 11/19/20 21:56 Diet: Cardiac - Heart Healthy Food consistency:: Regular Liquid Consistency:: Regular/Thin Diet: Consistent Carb - Calorie Controlled Food consistency:: Regular Liquid Consistency:: Regular/Thin How many daily calories?: 1800 calorie - Routine Orders/Code Status Routine Lab Work: BMP - Therapies Physical Therapy: Eval and Treat Occupational Therapy: Eval and Treat - Allergies/Procedures Done in Hospital Allergies/Adverse Reactions: Allergies clindamycin Allergy (Verified 11/19/20 16:55) Rash insulin detemir [From Levemir U-100 Insulin] Allergy (Verified 11/19/20 16:55) Rash ciprofloxacin Adverse Reaction (Mild, Verified 11/19/20 16:55) Upset Stomach amoxicillin trihydrate [From Augmentin] Adverse Reaction (Verified 11/19/20 16:55) Nausea also yeast infection morphine Adverse Reaction (Verified 11/19/20 16:55) Nausea potassium clavulanate [From Augmentin] Adverse Reaction (Verified 11/19/20 16:55) Nausea Procedures: None - Type of Care/Length of Stay Estimated LOS: Convalescent Care Less Than 30 days Type of Care Needed: Skilled Rehab Potential: Good Prognosis: Good - Additional Orders/Day of Discharge Day of Discharge: 11/20/20 - Follow Up Care Primary Care Physician: Veronica Oquendo DO [Primary Care Provider] - Please follow up with your Primary Care Physician in: 3-5 days
[2020-11-20] MEDS: PLECANATIDE 3 MG TABLET PO (13:45)
--- NOTE | 2020-11-20 14:57 | CASEMGMT ---
Social Work Note DEEJAY spoke with Anahy in TCU, TCU is able to accept pt today. Pt is medically cleared for discharge. SW in to speak with pt. SW updated pt that pt will discharge to TCU today. Pt states understanding. DEEJAY updated RN that pt can discharge to TCU once COVID results are available. DEEJAY placed copy of Transfer to extended care and signed medication list on pt's chart, original in SNF folder. Plan: TCU today.
[2020-11-20 15:00] VITALS: BP 122/53; PULSE 83; RESP 18; TEMP 36.4; O2SAT 96
[2020-11-20 16:40] LABS: Bedside Glucose 152 mg/dL (70-110)
--- NOTE | 2020-11-20 18:00 | NURSING ---
updated TCU on COVID result.
--- NOTE | 2020-11-20 18:55 | PCM.DC.SUM ---
Discharge Date and Diagnosis - Problem List Patient Problems: Active and Suspected Problems (Last Updated 11/19/20 @ 21:[address] Anahi Gutierrez MD) L1 vertebral fracture (Acute) Date of Admission: 11/19/20 Date of Discharge: 11/20/20 - Primary Discharge Diagnosis Acute Problems: Active Problems (Last Updated 11/19/20 @ 21:[address] Anahi Gutierrez MD) L1 vertebral fracture (Acute) - Secondary Discharge Diagnosis Chronic Problems: Chronic Problems (Last Updated 11/19/20 @ 21:[address] Anahi Gutierrez MD) Dysphagia (Chronic) Chronic renal failure, stage 3 (moderate) (Chronic) Pulmonary hypertension (Chronic) Obstructive sleep apnea (Chronic) Noncompliance with CPAP treatment (Chronic) quit wearing CPAP 2 years lorenzana Morbid obesity (Chronic) Diabetes mellitus type 2 in obese (Chronic) GERD (gastroesophageal reflux disease) (Chronic) Hyperuricemia (Chronic) Venous insufficiency of both lower extremities (Chronic) Diabetes (Chronic) Right bundle branch block (RBBB) (Chronic) Paroxysmal atrial fibrillation (Chronic) Essential (primary) hypertension (Chronic) Hyperlipidemia (Chronic) Asthma (Chronic) Sarcoidosis (Chronic) Hospital Course and Treatment Imaging Results: Clinical Impression(s) from Imaging Studies Abdomen/Pelvis CT 11/19/20 17:34 IMPRESSION: 1. No acute abdominal findings. 2. Left renal atrophy. 3. Refer to CT lumbar report for additional details. Electronically Signed: Reggie Melara, at 18:53 EST Tel , Service support , Lumbar Spine CT 11/19/20 17:37 IMPRESSION: 1. Small acute L1 corner fracture. 2. Chronic L1 compression fracture without canal compression. 3. 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 4. Expected appearance of L4-S1 dorsal hardware fusion with fully patent decompressed thecal sac. 5. Osteoporosis. Electronically Signed: Reggie Melara, at 19:19 EST Tel , Service support , Operations: None Procedures: None Summary of Care Provided: Per HPI: The patient is a 69 year old F with past medical history as mentioned above presented to the emergency room because of back pain. Patient stated that she slipped on a rug around 1 week ago, had a fall backwards and she started having back pain. She came to the emergency department on that day, had CT scan lumbar spine that showed no acute fractures and she was discharged home. Since then, she has been having back pain, mid back pain sometimes goes to the left side of her lower back, sharp pain, 9 out of 10 in severity, aggravated by movement and she has not been able to ambulate due to pain. She has been using urinal at home for urination and had no bowel movement since that time. She mentioned that she had some chronic bilateral lower extremity weakness due to previous back surgeries and hip replacement. She denied numbness or tingling. She denied bowel or bladder incontinence. In the emergency department, her vital signs were stable, was afebrile. Her routine blood work was remarkable for BUN of 45 and creatinine of 1.66 and those are chronic. Urinalysis was unremarkable. CT scan abdomen and pelvis without contrast showed no acute intra-abdominal pathology. Lumbar spine CT scan without contrast revealed small acute L1 corner fracture, chronic L1 compression fracture. She is being for intractable low back pain due to acute small L1 corner fracture. Hospital Course: 1. Intractable low back pain with chronic L1 compression fracture with no loss of height as well as an acute possible L1 avulsion [id number] female who has had previous low back surgery presents 1 week after a fall at home that was mechanical. She presented to the hospital and CT scan of her lumbar spine demonstrating the chronic L1 compression fracture with no loss of height, as well as a small avulsion fracture on L1. The avulsion fracture was seen on the repeat CT scan of her lumbar spine on this admission. She has no paresthesias no urinary or fecal incontinence and no radiation of her pain down her leg. She states that the pain had gotten worse and that it was over the right lateral aspect of her low back. On examination is seem to be more of a muscle sprain and spasm and did not correlate with any midline findings. The was under the impression that she would need an MRI and an orthopedic surgery consult because he states that that is what the home health nurse had told him he would need. I discussed with him that the CT scan did not show any stenosis or any significant injury and therefore she would need to undergo physical therapy first and then would potentially need an MRI if she had worsening of her pain or no improvement in her pain. At this point I did not see any indication for an orthopedic surgery consult as the avulsion fraction was extremely small. She was continued on narcotics and also placed on lidocaine patch as well as Valium to help relax her. These were continued on discharge. She was evaluated PT and OT and they expressed the need for continued physical therapy and she was accepted to TCU today. I did discuss with her and her the plan for discharge today for further therapy and they expressed understanding of the risks and benefits of discharge today and would like to go to the long-term facility today. 2. Chronic respiratory failure, COPD on chronic oxygen, type 2 diabetes, CKD 3, hypertension, hyperlipidemia are all chronic medical conditions which complicate her care. Her home medications were continued where appropriate. Patient Problems: Active and Suspected Problems (Last Updated 11/19/20 @ 21:[address] Anahi Gutierrez MD) L1 vertebral fracture (Acute) - Physical Exam Vitals/I&O's: Vital Signs Temp Pulse Resp BP Pulse Ox 97.6 F L 83 18 122/53 H 96 11/20/20 15:00 11/20/20 15:00 11/20/20 15:00 11/20/20 15:00 11/20/20 15:00 Oxygen Flow Rate (L/min) 2 Oxygen Delivery Method Nasal Cannula Weight: 172 lb 6.4 oz Body Mass Index (BMI) 33.6 Intake and Output for Last 24 Hours 11/18/20 11/19/20 11/20/20 23:59 23:59 23:59 Intake Total 1542.5 / 1542.5 Balance 1542.5 / 1542.5 General: Alert, Oriented x3, Cooperative, No apparent distress HEENT: Atraumatic, PERRLA, EOMI, Normocephalic Oral: Moist Mucosa Neck: Supple, No JVD Lungs: Normal air movement, No rhonchi, No wheeze, No rales, Diminished Cardiovascular: Regular rate, Regular Rhythm, Normal S1, Normal S2, No murmurs Abdomen: Soft, Non Tender, Non-Distended, No Hepato-splenomegaly Extremities: No edema, Capillary Refill Less than 3 Seconds Skin: No rashes, No breakdown Musculoskeletal: - - Muscle spasm in the right lateral low back into her right gluteus. Straight leg did not demonstrate any sciatica Neurological: Neuro grossly intact, Sensory exam intact to light touch and pain Psych/Mental Status: Normal Affect, Appropriate Laboratory Results 11/19/20 22:30: POC Glucose 99 11/20/20 06:30: POC Glucose 131 H 11/20/20 11:15: POC Glucose 165 H 11/20/20 14:45: COVID-19 (YAIR) Not Detected 11/20/20 16:31: POC Glucose 152 H Current Medications Acetaminophen (Acetaminophen 325 Mg Tablet) 650 mg PO Q6H PRN PRN PRN Reason: Pain Score 1-10/Temp > 100.7 F Last Admin: 11/20/20 15:03 Dose: 650 mg Documented by: Albuterol Sulfate (Albuterol 2.5 Mg/3 Ml Vial.Neb.) 2.5 mg INHALATION Q4H PRN PRN PRN Reason: Shortness of breath, wheezing Albuterol/Ipratropium (Ipratropium/Albuterol Sulfate 3 Ml Ampul.Neb) 3 ml INHALATION Q6HWA.RT [facility] Last Admin: 11/20/20 07:03 Dose: 3 ml Documented by: Amlodipine Besylate (Amlodipine 5 Mg Tablet) 5 mg PO DAILY [facility] Last Admin: 11/20/20 08:37 Dose: 5 mg Documented by: Budesonide (Budesonide Respules 0.5 Mg/2 Ml Ampul.Neb.) 0.5 mg INHALATION Q12H.RT [facility] Last Admin: 11/20/20 07:03 Dose: 0.5 mg Documented by: Diazepam (Diazepam 2 Mg Tablet) 2 mg PO TID PRN PRN PRN Reason: back pain Last Admin: 11/20/20 16:33 Dose: 2 mg Documented by: Famotidine (Famotidine 20 Mg Tablet) 20 mg PO QHS [facility]ENNIE Febuxostat (Febuxostat 40 Mg Tablet) 40 mg PO DAILY [facility] Last Admin: 11/20/20 08:39 Dose: 40 mg Documented by: Fenofibrate (Fenofibrate 145 Mg Tablet) 145 mg PO QHS [facility] Fluticasone Propionate (Fluticasone 0.05% 1 Weiser Nasal.Sry) 2 spray NASAL DAILY PRN PRN PRN Reason: CONGESTION Heparin Sodium (Porcine) (Heparin Injection (Vial) 5,000 Unit/Ml Vial) 5,000 unit SC Q8 [facility] Last Admin: 11/20/20 15:03 Dose: 5,000 unit Documented by: Insulin Glargine (Insulin Glargine 100 Units/Ml Pen) 45 units SC QPM [facility] Insulin Human Lispro (Insulin Lispro 100 Unit/Ml Insuln.Pen) 0 unit SC ACHS [facility]; Protocol Last Admin: 11/20/20 16:33 Dose: 1 unit Documented by: Lidocaine (Lidocaine 5% Patch) 1 patch TOPICAL DAILY [facility]; Protocol Last Admin: 11/20/20 08:37 Dose: 1 patch Documented by: Linagliptin (Linagliptin 5 Mg Tablet) 5 mg PO QHS [facility] Loratadine (Loratadine 10 Mg Tablet) 10 mg PO DAILY [facility] Last Admin: 11/20/20 08:37 Dose: 10 mg Documented by: Losartan Potassium (Losartan Potassium 50 Mg Tablet) 50 mg PO DAILY [facility] Last Admin: 11/20/20 08:37 Dose: 50 mg Documented by: Mirabegron (Mirabegron 50 Mg Tab.Er.24h) 50 mg PO DAILY [facility] Last Admin: 11/20/20 08:39 Dose: 50 mg Documented by: Montelukast Sodium (Montelukast 10 Mg Tablet) 10 mg PO QHS [facility] Last Admin: 11/19/20 23:02 Dose: 10 mg Documented by: Ondansetron HCl (Ondansetron 4 Mg/2 Ml Vial) 4 mg IV Q8H PRN PRN PRN Reason: NAUSEA/VOMITING Pantoprazole Sodium (Pantoprazole Sodium 40 Mg Tablet) 40 mg PO DAILY [facility] Last Admin: 11/20/20 08:38 Dose: 40 mg Documented by: Polyethylene Glycol (Polyethylene Glycol 3350 17 Gm Packet) 17 gm PO BID [facility] Last Admin: 11/20/20 11:16 Dose: 17 gm Documented by: Senna/Docusate Sodium (Senna/Docusate Sodium 1 Tablet) 2 tablet PO BID PRN PRN PRN Reason: Constipation Sodium Chloride (0.9% Saline Lock 10 Ml Syringe) 10 - 40 ml IV UD PRN PRN Reason: SALINE FLUSH Last Admin: 11/20/20 06:38 Dose: 10 ml Documented by: Tizanidine HCl (Tizanidine Hcl 2 Mg Tablet) 4 mg PO BID [facility] Last Admin: 11/20/20 08:38 Dose: 4 mg Documented by: Triamterene/Hydrochlorothiazide (Triamterene 37.5mg/Hctz 25mg Capsule) 1 cap PO DAILY [facility] Last Admin: 11/20/20 08:37 Dose: 1 cap Documented by: Zolpidem Tartrate (Zolpidem Tartrate 5 Mg Tablet) 5 mg PO QHS PRN PRN PRN Reason: INSOMNIA Home Medications: Medications to take at Discharge Loratadine [Claritin] 10 mg PO DAILY 07/07/14 Alendronate Sodium [Fosamax] 70 mg PO MO 06/21/17 Fluticasone 0.05% [Flonase Nasal Weiser] 2 spray NASAL DAILY PRN PRN 06/21/17 Febuxostat [Uloric] 40 mg PO DAILY 12/30/18 Cholecalciferol (VIT D3) [Vitamin D3] 1,000 unit PO DAILY 04/16/20 Cyanocobalamin (Vitamin B-12) [Vitamin B-12] 1,000 mcg PO DAILY PRN PRN 06/01/20 Losartan Potassium [Cozaar] 50 mg PO DAILY #0 06/02/20 fenofibric acid (choline) 135 mg capsule,delayed release 135 mg PO DAILY 07/17/20 fluticasone 500 mcg-salmeterol 50 mcg/dose blistr powdr for inhalation 1 inh INHALATION BID 07/17/20 sitagliptin 50 mg tablet 50 mg PO DAILY 07/17/20 tiotropium bromide 1.25 mcg/actuation mist for inhalation 2 puff INHALATION DAILY 07/17/20 amlodipine 5 mg tablet 5 mg PO DAILY #90 tab 09/12/20 Cimetidine [Heartburn Relief] 200 mg PO DAILY 11/19/20 Hydrocodone/Acetaminophen [Hydrocodone-Acetamin 5-325 mg] 1 tab PO Q4H PRN 11/19/20 Insulin Glargine [Lantus SoloStar Pen] 45 unit SC QPM 11/19/20 Mirabegron [Myrbetriq] 50 mg PO DAILY 11/19/20 Montelukast Sodium [Singulair] 10 mg PO QHS 11/19/20 Pantoprazole Sodium [Protonix] 40 mg PO DAILY 11/19/20 Plecanatide [Trulance] 3 mg PO DAILY 11/19/20 Tizanidine HCl [Zanaflex] 4 mg PO BID 11/19/20 Triamterene/Hydrochlorothiazid [Triamterene-Hctz 37.5-25 mg Cp] 1 cap PO DAILY 11/19/20 Diazepam [Valium] 2 mg PO TID PRN PRN tab 11/20/20 Polyethylene Glycol 3350 [Miralax] 17 gm PO BID packet 11/20/20 Senna/Docusate Sodium [Senokot-S] 2 tab PO BID PRN PRN tab 11/20/20 Primary Care Physician: Veronica Oquendo DO [Primary Care Provider] - Please follow up with your Primary Care Physician in: 3-5 days Disposition: [facility] facility Minutes spent on discharge:: 35 Patient Condition:: Stable Medical Necessity - Tobacco Use Smoking Status: Former smoker Meaningful Use Info Meaningful Use Diagnoses (Choose all that apply): None applicable OBSV E&M: 12697 Observation care discharge
== END 2020-11-20 20:15 ==
LOC: ED 20:25 → MS3 20:55
PROVIDERS: Admitting Provider Hospitalist; Emergency Provider Emergency Medicine; PCP Internal Medicine; Referring Provider Hospitalist; Visit Provider Family Medicine
DX: M48.56XA Collapsed vertebra, not elsewhere classified, lumbar region, initial encounter for fracture (principal); M25.512 Pain in left shoulder; I48.0 Paroxysmal atrial fibrillation; E11.22 Type 2 diabetes mellitus with diabetic chronic kidney disease; I12.9 Hypertensive chronic kidney disease with stage 1 through stage 4 chronic kidney disease, or unspecified chronic kidney disease; G47.33 Obstructive sleep apnea (adult) (pediatric); K21.9 Gastro-esophageal reflux disease without esophagitis; E78.2 Mixed hyperlipidemia; N18.30 Chronic kidney disease, stage 3 unspecified; J44.9 Chronic obstructive pulmonary disease, unspecified; I27.20 Pulmonary hypertension, unspecified; Z91.19 Patient's noncompliance with other medical treatment and regimen; E66.01 Morbid (severe) obesity due to excess calories; Z87.891 Personal history of nicotine dependence; Z79.899 Other long term (current) drug therapy; Z79.51 Long term (current) use of inhaled steroids; Z79.4 Long term (current) use of insulin; Z68.33 Body mass index [BMI] 33.0-33.9, adult; Z99.81 Dependence on supplemental oxygen; J96.10 Chronic respiratory failure, unspecified whether with hypoxia or hypercapnia
CPT/HCPCS: 72131; 74176; 80048; 81001; 82962; 85025; 87635; 94640; 96361; 96374; 96375; 96376; 97162; 99218; 99285; J7030; P9612; A4216; G0378; J2405; U0002

== ENCOUNTER 2020-11-20 20:00 | Inpatient (IN) | payer MEDICARE, OTHER, SELFPAY ==
[2020-11-19 22:01] VITALS: BMI 33.6
--- NOTE | 2020-11-20 21:08 | PCM.HP.STD ---
Problem List (1) Debility Status: Acute (2) Intractable low back pain Status: Acute (3) Compression fracture of L1 vertebra Status: Chronic (4) Osteoporosis Status: Chronic (5) Hypertension Status: Chronic (6) Atrial fibrillation Status: Chronic (7) Chronic kidney disease Status: Chronic (8) Allergic rhinitis Status: Chronic (9) Gout Status: Chronic (10) Overactive bladder Status: Chronic (11) Constipation Status: Chronic (12) Muscle spasm Status: Chronic (13) Obstructive sleep apnea Status: Chronic (14) GERD (gastroesophageal reflux disease) Status: Chronic (15) Diabetes Status: Chronic (16) Hyperlipidemia Status: Chronic Qualifiers: (17) Asthma Status: Chronic History of Present Illness Date of Admission: 11/20/20 Chief Complaint: Here for rehabilitation, strengthening, prior to discharge home with . 11/19/20 The patient is a 69 year old Female with below past medical history presented to [facility] Emergency Department with back pain. 11/19/20 CT abdomen/pelvis showed left renal atrophy. 11/19/20 CT lumbar spine showed small acute L1 corner fracture, chronic L1 compression fracture without canal compression, L4-S1 dorsal hardware, osteoporosis. Fall 5 days prior, severe low back pain, slipped on rug, fell backwards. Bedbound since the fall. Acute L1 corner fracture. IV Fentanyl given for pain. 11/19/20 Admit to Hospital. OxyIR, Morphine IV, PT/OT, for low back pain. IV fluids for gentle hydration. IV antiemetics. Lidocaine patch, Valium added for low back pain. Of note, patient's inquired about MRI lumbosacral spine, Orthopedics spine consult. Patient has no radicular symptoms, no sign of lumbar spinal stenosis, or compression on imaging. Recommend at least 6 weeks of PT, then consider MRI lumbosacral spine if there is no improvement in her symptoms. 11/20/20 Admit to TCU with debility, here for rehabilitation, strengthening, prior to discharge home with . Upon arrival, resident developed hypoxia, fever 102.7, treat right sided pneumonia. Past Medical History Past Medical History (Chronic Problems): Chronic Problems (Last Updated 11/19/20 @ 21:[address] Anahi Gutierrez MD) Compression fracture of L1 vertebra (Chronic) Osteoporosis (Chronic) Hypertension (Chronic) Atrial fibrillation (Chronic) Chronic kidney disease (Chronic) Allergic rhinitis (Chronic) Gout (Chronic) Overactive bladder (Chronic) Constipation (Chronic) Muscle spasm (Chronic) Dysphagia (Chronic) Chronic renal failure, stage 3 (moderate) (Chronic) Pulmonary hypertension (Chronic) Obstructive sleep apnea (Chronic) Noncompliance with CPAP treatment (Chronic) quit wearing CPAP 2 years lorenzana Morbid obesity (Chronic) Diabetes mellitus type 2 in obese (Chronic) GERD (gastroesophageal reflux disease) (Chronic) Hyperuricemia (Chronic) Venous insufficiency of both lower extremities (Chronic) Diabetes (Chronic) Right bundle branch block (RBBB) (Chronic) Paroxysmal atrial fibrillation (Chronic) Essential (primary) hypertension (Chronic) Hyperlipidemia (Chronic) Asthma (Chronic) Sarcoidosis (Chronic) Medical History: Medical History (Last Updated 11/19/20 @ 21:[address] Anahi Gutierrez MD) Right bundle branch block (RBBB) (Chronic) I45.10 Paroxysmal atrial fibrillation (Chronic) I48.0 Essential (primary) hypertension (Chronic) I10 Hyperlipidemia (Chronic) E78.5 Asthma (Chronic) J45.909 Sarcoidosis (Chronic) D86.9 Chronic obstructive lung disease J44.9 mild GERD (gastroesophageal reflux disease) K21.9 Leukocytosis D72.829 Lung abscess J85.2 Obesity (BMI 30-39.9) E66.9 Obstructive sleep apnea G47.33 On home O2 Z99.81 Osteopenia M85.80 Type 2 diabetes mellitus E11.9 Pneumonia J18.9 Allergies clindamycin Allergy (Verified 11/19/20 16:55) Rash insulin detemir [From Levemir U-100 Insulin] Allergy (Verified 11/19/20 16:55) Rash ciprofloxacin Adverse Reaction (Mild, Verified 11/19/20 16:55) Upset Stomach amoxicillin trihydrate [From Augmentin] Adverse Reaction (Verified 11/19/20 16:55) Nausea also yeast infection morphine Adverse Reaction (Verified 11/19/20 16:55) Nausea potassium clavulanate [From Augmentin] Adverse Reaction (Verified 11/19/20 16:55) Nausea Home Medications: Ambulatory Orders Medication Instructions Recorded Loratadine [Claritin] 10 mg PO DAILY 07/07/14 Alendronate Sodium [Fosamax] 70 mg PO MO 06/21/17 Fluticasone 0.05% [Flonase Nasal 2 spray NASAL DAILY PRN PRN 06/21/17 [place]] Febuxostat [Uloric] 40 mg PO DAILY 12/30/18 Cholecalciferol (VIT D3) [Vitamin 1,000 unit PO DAILY 04/16/20 D3] Cyanocobalamin (Vitamin B-12) 1,000 mcg PO DAILY PRN PRN 06/01/20 [Vitamin B-12] Losartan Potassium [Cozaar] 50 mg PO DAILY #0 06/02/20 fenofibric acid (choline) 135 mg 135 mg PO DAILY 07/17/20 capsule,delayed release fluticasone 500 mcg-salmeterol 50 1 inh INHALATION BID 07/17/20 mcg/dose blistr powdr for inhalation sitagliptin 50 mg tablet 50 mg PO DAILY 07/17/20 tiotropium bromide 1.25 2 puff INHALATION DAILY 07/17/20 mcg/actuation mist for inhalation Cimetidine [Heartburn Relief] 200 mg PO DAILY 11/19/20 Hydrocodone/Acetaminophen 1 tab PO Q4H PRN 11/19/20 [Hydrocodone-Acetamin 5-325 mg] Insulin Glargine [Lantus SoloStar 45 unit SC QPM 11/19/20 Pen] Mirabegron [Myrbetriq] 50 mg PO DAILY 11/19/20 Montelukast Sodium [Singulair] 10 mg PO QHS 11/19/20 Pantoprazole Sodium [Protonix] 40 mg PO DAILY 11/19/20 Plecanatide [Trulance] 3 mg PO DAILY 11/19/20 Tizanidine HCl [Zanaflex] 4 mg PO BID 11/19/20 Triamterene/Hydrochlorothiazid 1 cap PO DAILY 11/19/20 [Triamterene-Hctz 37.5-25 mg Cp] Amlodipine Besylate [Norvasc] 5 mg PO DAILY 11/20/20 Diazepam [Valium] 2 mg PO TID PRN PRN tab 11/20/20 Polyethylene Glycol 3350 [Miralax] 17 gm PO BID 11/20/20 Senna/Docusate Sodium [Senokot-S] 2 tab PO BID PRN PRN tab 11/20/20 Surgical History: Surgical History (Last Reviewed 07/17/20 @ 14:[address] Salvador Velazquez MD) History of cholecystectomy Z90.49 History of knee replacement procedure of left knee Z96.652 History of laminectomy Z98.890 History of right and left heart catheterization Onset Date: 05/04/20 Z98.890 Surgical History: cholecystectomy, hysterectomy, total knee arthroplasty, - - Lumbar back surgery, foot surgery, Psychiatric History: No pertinent psych hx [employer] History: No pertinent [employer] history Lives: Spouse/ Significant Other Smoking Status: Former smoker Tobacco Use: Non-smoker Alcohol: None Drugs: None - *Family History Paternal Family History: Family History (Last Reviewed 07/17/20 @ 14:[address] Salvador Velazquez MD) Father Hypertension Colon cancer Cancer Mother Hypertension Heart disease Diabetes History Items: Cancer - lung cancer Maternal Family History: Family History (Last Reviewed 07/17/20 @ 14:[address] Salvador Velazquez MD) Father Hypertension Colon cancer Cancer Mother Hypertension Heart disease Diabetes History Items: COPD, Hypertension Sibling Family History: Family History (Last Reviewed 07/17/20 @ 14:[address] Salvador Velazquez MD) Father Hypertension Colon cancer Cancer Mother Hypertension Heart disease Diabetes History Items: Diabetes Review of Systems Constitutional: Denies: Chills, Fever, Weight Change HEENT: Denies: Head Aches, Sinus Congestion, Sinus Drainage Cardiovascular: Denies: Chest Pain, Palpitations Respiratory: Denies: Cough, Shortness of breath at rest, Sputum production Gastrointestinal: Denies: Abdominal Pain, Nausea, Vomiting Genitourinary: Denies: Dysuria Musculoskeletal: Denies: Joint Pain, Joint Tenderness Skin: Denies: Rash, Wounds Neurological: Denies: Numbness, Tingling, Focal weakness Psychiatric: Denies: Anxiety, Depression, Homicidal Ideations, Suicidal Ideations Hematologic/ Lymphatic: Denies: Easy Bruising, Easy Bleeding VTE Information - Inpt Only VTE Present on Admission: No VTE Mechan Device Prophylaxis: Knee High PAULIE Hose VTE Pharm Prophylaxis ordered?: Yes Patient Problems: Active and Suspected Problems (Last Updated 11/19/20 @ 21:[address] Anahi Gutierrez MD) Debility (Acute) Intractable low back pain (Acute) - Physical Exam Vitals/I&O's: Body Mass Index (BMI) 33.6 General: Alert, Oriented x3, Cooperative HEENT: Atraumatic, PERRLA, EOMI, Normocephalic Neck: Supple, No JVD, Negative Carotid Bruits Lungs: Normal air movement, - - Right lower lobe crackles. Cardiovascular: Regular rate, No murmurs Abdomen: Bowel Sounds Present, Soft, Non Tender Extremities: No edema, Capillary Refill Less than 3 Seconds Skin: No rashes, No breakdown Musculoskeletal: No Tenderness to Palpation of Joints or Extremities Neurological: Cranial nerves II-XII grossly intact Psych/Mental Status: Normal Affect, Appropriate Current Medications Hydrocodone Bitart/Acetaminophen (Hydrocodone Bitartrate/Apap 5/325 Tablet) tablet PO Q4H PRN PRN Reason: Pain 1-10 or Fever Alendronate Sodium (Alendronate Sodium 70 Mg Tablet) 70 mg PO MO BENNIE Amlodipine Besylate (Amlodipine 5 Mg Tablet) 5 mg PO DAILY BENNIE Cholecalciferol (Cholecalciferol (Vit D3) 1,000 Unit (25mcg)) 1,000 unit PO DAILY BENNIE Diazepam (Diazepam 2 Mg Tablet) 2 mg PO TID PRN PRN PRN Reason: back pain Famotidine (Famotidine 20 Mg Tablet) 20 mg PO DAILY BENNIE Febuxostat (Febuxostat 40 Mg Tablet) 40 mg PO DAILY BENNIE Fenofibrate (Fenofibrate 145 Mg Tablet) 145 mg PO DAILY BENNIE Fluticasone Propionate (Fluticasone 0.05% 1 [place] Nasal.Sry) 2 spray NASAL DAILY PRN PRN PRN Reason: CONGESTION Insulin Glargine (Insulin Glargine 100 Units/Ml Pen) 45 units SC QPM BENNIE Linagliptin (Linagliptin 5 Mg Tablet) 5 mg PO DAILY BENNIE Loratadine (Loratadine 10 Mg Tablet) 10 mg PO DAILY BENNIE Losartan Potassium (Losartan Potassium 50 Mg Tablet) 50 mg PO DAILY BENNIE Mirabegron (Mirabegron 50 Mg Tab.Er.24h) 50 mg PO DAILY BENNIE Montelukast Sodium (Montelukast 10 Mg Tablet) 10 mg PO QHS BENNIE Non-Formulary Medication (Cyanocobalamin (Vitamin B-12) [Vitamin B-12]) 1,000 mcg PO DAILY PRN PRN PRN Reason: [employer] Non-Formulary Medication (Plecanatide) 3 mg PO DAILY BENNIE Non-Formulary Medication (Tiotropium [place] [Spiriva Respimat]) 2 puff INHALATION DAILY BENNIE Non-Formulary Medication (Triamterene/Hydrochlorothiazid [Triamterene-Hctz 37.5-25 Mg Cp]) 1 cap PO DAILY BENNIE Pantoprazole Sodium (Pantoprazole Sodium 40 Mg Tablet) 40 mg PO DAILY [facility] Polyethylene Glycol (Polyethylene Glycol 3350 17 Gm Packet) 17 gm PO BID [facility] Fluticasone/Salmeterol (Fluticasone/Salmeterol 500/50 Inhaler) 1 puff INHALATION BID [facility] Senna/Docusate Sodium (Senna/Docusate Sodium 1 Tablet) 1 tablet PO BID PRN PRN PRN Reason: Constipation Tizanidine HCl (Tizanidine Hcl 2 Mg Tablet) 4 mg PO BID BENNIE Tuberculin PPD (Tuberculin,Purif.Prot.Deriv. 50 Tu/Ml Vial) 5 tu ID X1 ONE Stop: 11/21/20 10:01 Tuberculin PPD (Tuberculin,Purif.Prot.Deriv. 50 Tu/Ml Vial) 5 tu ID X1 ONE Stop: 11/28/20 10:01 Assessment/Plan All Active Problems (Last Updated 11/19/20 @ 21:[address] Anahi Gutierrez MD) Debility (Acute) Intractable low back pain (Acute) L1 vertebral fracture (Acute) 69 year old female with below past medical history hospitalized for intractable low back pain secondary to acute L1 corner fracture, admitted to TCU with debility, here for rehabilitation, strengthening, prior to discharge home with . Debility - PT/OT. Pain - Tylenol 1000MG Q6H PRN pain (1-3), Tramadol 50MG Q6H PRN pain (4-5), Oxycodone 5MG Q4H PRN pain (6-10). Bowel - Miralax 17GM BID, Senna/colace 2 tablets BID, MOM 30ML daily PRN, Dulcolax 10MG ID daily PRN. Adult immunization - Administer Prevnar 13, Pneumovax 23, Fluzone as appropriate. DVT prophylaxis - Lovenox 30MG SC daily. Osteoporosis - Alendronate 70MG Qweek. Hypertension - Amlodipine 5MG daily, Losartan 50MG daily, Maxzide 37.5/25MG daily. Vitamin D deficiency - D3 1000IU daily. Vitamin B12 deficiency - B12 1000MCG daily. Low back pain - Lidoderm patch, Valium 2MG TID PRN, Zostrix topical 4x/day PRN. GERD - Famotidine 20MG daily. Gout - Uloric 40MG daily. Hyperlipidemia - Tricor 145MG daily. Allergic Rhinitis - Loratadine 10MG daily, Flonase 2 sprays nasal daily PRN. Asthma - Advair 232-14 1 puff Q12H, Spiriva 2 puff daily, Montelukast 10MG daily. Diabetes Mellitus II - Lantus 45 units QAM, Tradjenta 5MG daily, monitor blood sugars. Overactive bladder - Myrbetriq 50MG daily. GERD - Pantoprazole 40MG daily. Muscle spasm - Tizanidine 4MG BID. Right lower lobe pneumonia - Rocephin 1GM IV Q24H, Zithromax 500MG IV Q24H x 7 days, blood cultures pending.
--- NOTE | 2020-11-20 21:30 | NURSING ---
Patient shaking in the bed. Patient c/o of freezing and not being able to get warm. Temperature taken orally at this time of 98.3. BP 140/72 P 90 R 20. Patient's O2 75 on 2 L o2, patient bumped up to 4 L, Patient's O2 now 94. BS 132. Dr. Enriquez notified of this. Orders given for stat BMP, CBC, Covid, chest xray, and U/A.
[2020-11-20 21:31] LABS: Bedside Glucose 132 mg/dL (70-110)
[2020-11-20 21:33] VITALS: BP 140/72; PULSE 90; RESP 20; TEMP 36.8; O2SAT 94
--- NOTE | 2020-11-20 21:57 | RAD_ITS ---
HISTORY: Shortness of breath ADDITIONAL HISTORY: None provided. COMPARISON: 08/03/[address] TECHNIQUE: Frontal and lateral chest radiographs. Number of images including paperwork: 3 FINDINGS: LUNGS AND PLEURA: Minimal patchy right lung airspace opacities. Left basilar pleural parenchymal opacities and left basilar nodular opacity appear grossly similar, better evaluated on previous CT. No sizable pleural effusion or pneumothorax. CARDIAC SILHOUETTE: Stably enlarged. MEDIASTINUM AND DEMETRIUS: Unchanged aortic calcification and tortuosity. UPPER ABDOMEN: Gaseous bowel distention. SKELETON AND SOFT TISSUES: No acute findings. Degenerative changes. OTHER DEVICES AND HARDWARE: None. RAD/Chest PA and Lateral IMPRESSION: Minimal patchy right lung opacities, nonspecific concerning for infection. Chest otherwise appears similar. at 2249 Reported and signed by: Haylee Moreno MD Electronically Signed: Haylee Moreno MD at 22:49 EST Tel , Service support ,
[2020-11-20 22:00] VITALS: O2SAT 94
[2020-11-20 22:51] VITALS: BMI 38.5
[2020-11-20 22:56] VITALS: BMI 38.5
[2020-11-20 22:57] LABS: Absolute Lymphocyte Count 0.47 X10^3/uL (0.83-4.51); Absolute Neutrophil Count 7.3 X10^3/uL (2.0-7.7); Basophil# 0.02 X10^3/uL; Basophil% 0.2 % (0-1); Eosinophil# 0.19 X10^3/uL; Eosinophils% 2.2 % (0-5); Hematocrit 37.6 % (37-47); Hemoglobin 11.5 g/dL (12.0-15.0); Lymphocyte # 0.47 X10^3/ul (4.0); Lymphocyte % 5.3 % (19-41); Mean Corp Hgb Conc 30.6 g/dL (32-36); Mean Corpuscular Hgb 27.8 pg (27.0-32.0); Mean Corpuscular Volume 90.8 fL (81-99); Mean Platelet Vol. 9.7 fl (6.2-12.0); Monocyte# 0.74 X10^3/uL; Monocyte% 8.4 % (0-10); NRBC Flagged by Analyzer 0 % (0-5); Neutrophil # 7.33 X10^3/uL (2.7-7.7); Neutrophil % 83.1 % (47-70); POSITIVE DIFFERENTIAL YES; Platelet Count 253 K/mm3 (150-450); RBC Distribution Width CV 15.7 % (11.6-14.6); RBC Distribution Width SD 51.8 fl (35.1-43.9); Red Blood Count 4.14 M/mm3 (4.2-5.4); White Blood Count 8.8 K/mm3 (4.4-11.0)
[2020-11-20 22:58] LABS: Differential Indicated SCAN CRITERIA MET
[2020-11-20 23:08] LABS: Anion Gap 3 (5-15); BUN 43 mg/dL (7-18); BUN/Creat Ratio 28.1 RATIO (10-20); Calcium,Total 9.9 mg/dL (8.5-10.1); Chloride 107 mmol/L (98-107); Creatinine, Serum 1.53 mg/dL (0.55-1.02); EST Glomerular Filtration Rate 36 mL/min (>60); Est Glom Filt Rate - Afr Amer 43 mL/min (>60); Estimated Creatinine Clearance 47.39 ml/min; Glucose 151 mg/dL (74-106); Potassium 5.4 mmol/L (3.5-5.1); Sodium Level 138 mmol/L (136-145)
[2020-11-20 23:26] LABS: Bacteria 0 SEEN /hpf (None Seen); Mucous, Urine 0 SEEN /hpf (<or=2+); Red Blood Cells-Urine 0 SEEN /hpf (0-5); Squamous Epithelial Cells - UA 0 SEEN /hpf (5-10)
[2020-11-20 23:28] LABS: Color, Urine Yellow (Yellow); Glucose, Dipstick Normal (Normal); Ketone-Dipstick Negative (Negative); Leukocyte Esterase-Dipstick Negative /ul (Negative); Nitrite-Dipstick Negative (Negative); Occult Blood-Urine Negative /ul (Negative); Protein-Dipstick Negative (Negative); Specific Gravity, Urine 1.015 (1.002-1.030); Urine Bilirubin Dipstick Negative (Negative); Urine Clarity Clear (Clear); Urine Urobilinogen 1 mg/dl (Normal)
--- NOTE | 2020-11-20 23:30 | NURSING ---
Patient has a temperature of 102.[address] Enriquez notified of this as well as chest xray results and Potassium of 5.4. New orders given.
[2020-11-20 23:31] VITALS: O2SAT 92
[2020-11-20 23:32] VITALS: TEMP 39.4
[2020-11-20 23:49] LABS: White Blood Cells 0-5 SEEN /hpf (0-5)
[2020-11-20] MEDS: Sodium Polystyrene Sulfonate 15 GM/60 ML UDC 30 GM PO (23:57)
[2020-11-21] MEDS: oxyCODONE 5 MG Tablet PO ×2 (00:09→20:16)
[2020-11-21] MEDS: 0.9% Normal Saline 1,000 ML 75 ML IV ×2 (00:15→12:55)
[2020-11-21] MEDS: Ceftriaxone 1 GM/50 ML BAG IV ×2 (00:45→21:11)
[2020-11-21 01:11] VITALS: BP 107/48; PULSE 97; RESP 20; TEMP 38; O2SAT 92
[2020-11-21 05:40] LABS: Absolute Lymphocyte Count 0.67 X10^3/uL (0.83-4.51); Absolute Neutrophil Count 8.2 X10^3/uL (2.0-7.7); Basophil# 0.04 X10^3/uL; Basophil% 0.4 % (0-1); Eosinophil# 0.23 X10^3/uL; Eosinophils% 2.2 % (0-5); Hematocrit 35.9 % (37-47); Hemoglobin 10.8 g/dL (12.0-15.0); Lymphocyte # 0.67 X10^3/ul (4.0); Lymphocyte % 6.4 % (19-41); Mean Corp Hgb Conc 30.1 g/dL (32-36); Mean Corpuscular Hgb 27.4 pg (27.0-32.0); Mean Corpuscular Volume 91.1 fL (81-99); Mean Platelet Vol. 10.1 fl (6.2-12.0); Monocyte# 1.26 X10^3/uL; Monocyte% 12.1 % (0-10); NRBC Flagged by Analyzer 0 % (0-5); Neutrophil # 8.16 X10^3/uL (2.7-7.7); Platelet Count 273 K/mm3 (150-450); RBC Distribution Width CV 15.5 % (11.6-14.6); RBC Distribution Width SD 51.8 fl (35.1-43.9); Red Blood Count 3.94 M/mm3 (4.2-5.4); White Blood Count 10.5 K/mm3 (4.4-11.0)
[2020-11-21 06:13] LABS: Anion Gap 5 (5-15); BUN 45 mg/dL (7-18); BUN/Creat Ratio 28.1 RATIO (10-20); Calcium,Total 9.6 mg/dL (8.5-10.1); Chloride 107 mmol/L (98-107); EST Glomerular Filtration Rate 34 mL/min (>60); Est Glom Filt Rate - Afr Amer 41 mL/min (>60); Estimated Creatinine Clearance 45.31 ml/min; Glucose 111 mg/dL (74-106); Potassium 4.9 mmol/L (3.5-5.1); Sodium Level 138 mmol/L (136-145)
[2020-11-21] MEDS: Menthol/Lanolin/Calamine/Znox 113 GM Tube 1 APPLIC TOPICAL ×2 (06:51→20:20)
[2020-11-21] MEDS: Losartan Potassium 50 MG Tablet PO (06:52)
[2020-11-21] MEDS: Loratadine 10 MG Tablet PO (06:52)
[2020-11-21] MEDS: Umeclidinium Bromide Inhaler 1 PUFF IH (06:53)
[2020-11-21] MEDS: Enoxaparin 30 MG/0.3 ML Syringe SC (06:53)
[2020-11-21] MEDS: Glucerna Shake 120 ML LIQUID PO ×3 (06:53→17:09)
[2020-11-21] MEDS: Fluticasone/Salmeterol 232-14 Inhaler 1 PUFF IH ×2 (06:53→17:10)
[2020-11-21] MEDS: Triamterene 37.5MG/Hctz 25MG Capsule 1 CAP PO (06:53)
[2020-11-21] MEDS: Nystatin Powder 15gm Bottle 1 APPLIC TOPICAL ×2 (06:58→20:21)
[2020-11-21] MEDS: Polyethylene Glycol 3350 17 GM PACKET PO ×2 (06:58→17:12)
[2020-11-21] MEDS: Senna/Docusate Sodium 1 Tablet 2 TABLET PO ×2 (06:59→17:12)
[2020-11-21] MEDS: Febuxostat 40 MG TABLET PO (06:59)
[2020-11-21] MEDS: Cyanocobalamin 500 MCG Tablet 1000 MCG PO (06:59)
[2020-11-21] MEDS: Mirabegron 50 MG TAB.ER.24H PO (06:59)
[2020-11-21] MEDS: Fenofibrate 145 MG Tablet PO (06:59)
[2020-11-21] MEDS: amLODIPine 5 MG Tablet PO (06:59)
[2020-11-21] MEDS: Pantoprazole Sodium 40 MG Tablet PO (06:59)
[2020-11-21] MEDS: Famotidine 20 MG Tablet PO (06:59)
[2020-11-21] MEDS: tiZANidine HCl 2 MG Tablet 4 MG PO ×2 (06:59→17:14)
[2020-11-21] MEDS: LINAGLIPTIN 5 MG TABLET PO (06:59)
[2020-11-21] MEDS: Lidocaine 5% Patch 2 PATCH TOPICAL (09:46)
[2020-11-21 10:36] LABS: Bedside Glucose 131 mg/dL (70-110)
[2020-11-21] MEDS: Tuberculin,Purif.prot.deriv. 50 TU/ML Vial 5 ML ID (10:47)
[2020-11-21] MEDS: traMADol 50 MG Tablet PO (12:53)
[2020-11-21 14:29] VITALS: BP 124/56; PULSE 88; RESP 17; TEMP 36.7; O2SAT 93
--- NOTE | 2020-11-21 14:32 | CASEMGMT ---
Social Work See full assessment for details. MOLST form reviewed, communication to doctor, placed in chart. Pt would like to return home at discharge, states needs to be able to care for herself before returning home. Pt also inquired about attaining a hospital bed prior to discharge. SW explained will look into this as her stay continues. SW will continue to follow for discharge planning needs. SYLWIA Estrada
[2020-11-21] MEDS: Magnesium Hydroxide 30 ML UDC PO (18:45)
[2020-11-21] MEDS: Montelukast 10 MG Tablet PO (20:18)
[2020-11-21 22:05] LABS: Bedside Glucose 130 mg/dL (70-110)
[2020-11-22 04:57] VITALS: BP 149/76; PULSE 84; RESP 18; TEMP 36.4; O2SAT 96
[2020-11-22] MEDS: 0.9% Normal Saline 1,000 ML 75 ML IV ×2 (04:57→17:38)
[2020-11-22] MEDS: Triamterene 37.5MG/Hctz 25MG Capsule 1 CAP PO (05:00)
[2020-11-22] MEDS: Enoxaparin 30 MG/0.3 ML Syringe SC (05:00)
[2020-11-22] MEDS: Senna/Docusate Sodium 1 Tablet 2 TABLET PO ×2 (05:00→16:57)
[2020-11-22] MEDS: Loratadine 10 MG Tablet PO (05:00)
[2020-11-22] MEDS: Losartan Potassium 50 MG Tablet PO (05:00)
[2020-11-22] MEDS: amLODIPine 5 MG Tablet PO (05:00)
[2020-11-22] MEDS: Fenofibrate 145 MG Tablet PO (05:00)
[2020-11-22] MEDS: Mirabegron 50 MG TAB.ER.24H PO (05:00)
[2020-11-22] MEDS: Famotidine 20 MG Tablet PO (05:00)
[2020-11-22] MEDS: tiZANidine HCl 2 MG Tablet 4 MG PO (05:01)
[2020-11-22] MEDS: Cyanocobalamin 500 MCG Tablet 1000 MCG PO (05:01)
[2020-11-22] MEDS: LINAGLIPTIN 5 MG TABLET PO (05:01)
[2020-11-22] MEDS: Polyethylene Glycol 3350 17 GM PACKET PO ×2 (05:01→16:57)
[2020-11-22] MEDS: Febuxostat 40 MG TABLET PO (05:01)
[2020-11-22] MEDS: Pantoprazole Sodium 40 MG Tablet PO (05:01)
[2020-11-22] MEDS: Fluticasone/Salmeterol 232-14 Inhaler 1 PUFF IH ×2 (05:13→16:58)
[2020-11-22] MEDS: Umeclidinium Bromide Inhaler 1 PUFF IH (05:13)
[2020-11-22] MEDS: Lidocaine 5% Patch 2 PATCH TOPICAL (05:14)
[2020-11-22] MEDS: Menthol/Lanolin/Calamine/Znox 113 GM Tube 1 APPLIC TOPICAL ×2 (05:22→19:52)
[2020-11-22] MEDS: Nystatin Powder 15gm Bottle 1 APPLIC TOPICAL ×2 (05:23→19:53)
[2020-11-22] MEDS: oxyCODONE 5 MG Tablet PO (05:25)
[2020-11-22 06:20] LABS: Bedside Glucose 129 mg/dL (70-110)
[2020-11-22] MEDS: diazePAM 2 MG Tablet PO (08:34)
[2020-11-22] MEDS: Acetaminophen 500 MG Tablet 1000 MG PO ×3 (08:37→19:50)
--- NOTE | 2020-11-22 08:46 | PCM.PN.BLA ---
Progress Note I was asked by nursing to see Sugey for intractable low back pain. She was scheduled for an MRI of the back this AM. She was admitted to TCU for intractable back pain due to an L1 vertebral fracture. I reviewed the CT of the LS spine and she has a chronic canal stenosis at L3-4. She is c/o pain in the low back, lateral R hip and the R anterior thigh. She is getting sharp, electric pains into the buttock, lateral hip and anterior thigh with movement. She tells me that she has never had pain like this in the past. The H&P was reviewed. She has seen Dr. Medina for injections in the past. She has had surgery on her low back in the past. Meds were reviewed and she is on Oxycodone 5 mg every 4 H PRN, Tramadol 50 mg Q6H PRN, Tizanidine 4 mg BID, Valium 2 mg TID PRN and PRN Tylenol. She tells me that the Oxy helps some but it makes her very nauseated. She looks to be in significant discomfort. she is lying on her back at about 30 degrees ....if she puts the bed up any further the pain intensifies + SLR on the R. Negative SLR on the Left Will not lift the right leg off the bed due to pain so I can not accurately assess strength No calf tenderness DTR's are diminished in patella both LE's Impressions 1. Intractable pain in the RLE due to radiculitis. 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 Chronic pain exacerbated by a reason fall and small acute L1 corner fracture which I do not think is the etiology of the intractable pain. 2. DM II 3. CRF stage IIIb 4. morbid obesity Start Neurontin-give 300 mg p.o. now and start 100 mg p.o. twice daily and 300 mg p.o. nightly. Start prednisone-give 60 mg p.o. now and start 40 mg p.o. daily. Prednisone is going to increase her blood sugars so will start a sliding insulin scale and check Accu-Cheks before meals and at bedtime with coverage. Canceled the MRI of the LS spine-I do not feel at this time that it will change my plan of treatment. If the pain does not improve or she develops Myelopathy will reorder the MRI at that time STROKE Vital Signs/Narrative: Vital Signs Temp Pulse Resp BP Pulse Ox 11/22/20 04:57 97.5 F L 84 18 149/76 H 96 Inpatient E&M: [id number] Subs Hosp L2
[2020-11-22 10:00] VITALS: PULSE 78; O2SAT 94
[2020-11-22 10:51] LABS: Bedside Glucose 118 mg/dL (70-110)
[2020-11-22] MEDS: predniSONE 20 MG Tablet 60 MG PO (10:53)
[2020-11-22] MEDS: Gabapentin 300 MG Capsule PO ×2 (10:54→19:52)
[2020-11-22] MEDS: Glucerna Shake 120 ML LIQUID PO ×3 (11:34→19:54)
[2020-11-22] MEDS: traMADol 50 MG Tablet PO ×2 (13:46→19:51)
[2020-11-22 14:43] VITALS: BP 126/54; PULSE 80; RESP 20; TEMP 36.5; O2SAT 92
[2020-11-22 16:35] LABS: Bedside Glucose 201 mg/dL (70-110)
[2020-11-22] MEDS: Gabapentin 100 MG Capsule PO ×2 (16:59→19:51)
[2020-11-22] MEDS: Insulin Lispro 100 UNIT/ML INSULN.PEN SC ×2 (17:37→22:31)
[2020-11-22] MEDS: Montelukast 10 MG Tablet PO (19:51)
[2020-11-22] MEDS: Ceftriaxone 1 GM/50 ML BAG IV (20:43)
[2020-11-22 21:31] LABS: Bedside Glucose 215 mg/dL (70-110)
[2020-11-23 05:33] VITALS: BP 138/76; PULSE 68; RESP 16; TEMP 36.4; O2SAT 97
[2020-11-23] MEDS: Menthol/Lanolin/Calamine/Znox 113 GM Tube 1 APPLIC TOPICAL ×2 (05:35→20:20)
[2020-11-23] MEDS: Fluticasone/Salmeterol 232-14 Inhaler 1 PUFF IH ×2 (05:36→17:22)
[2020-11-23] MEDS: Lidocaine 5% Patch 2 PATCH TOPICAL (05:37)
[2020-11-23] MEDS: Umeclidinium Bromide Inhaler 1 PUFF IH (05:37)
[2020-11-23] MEDS: Enoxaparin 30 MG/0.3 ML Syringe SC (05:38)
[2020-11-23] MEDS: Polyethylene Glycol 3350 17 GM PACKET PO ×2 (05:38→17:21)
[2020-11-23] MEDS: Acetaminophen 500 MG Tablet 1000 MG PO ×3 (05:38→20:21)
[2020-11-23] MEDS: Cyanocobalamin 500 MCG Tablet 1000 MCG PO (05:38)
[2020-11-23] MEDS: LINAGLIPTIN 5 MG TABLET PO (05:39)
[2020-11-23] MEDS: Pantoprazole Sodium 40 MG Tablet PO (05:39)
[2020-11-23] MEDS: Febuxostat 40 MG TABLET PO (05:39)
[2020-11-23] MEDS: Mirabegron 50 MG TAB.ER.24H PO (05:39)
[2020-11-23] MEDS: Senna/Docusate Sodium 1 Tablet 2 TABLET PO ×2 (05:39→17:21)
[2020-11-23] MEDS: Losartan Potassium 50 MG Tablet PO (05:39)
[2020-11-23] MEDS: amLODIPine 5 MG Tablet PO (05:39)
[2020-11-23] MEDS: Triamterene 37.5MG/Hctz 25MG Capsule 1 CAP PO (05:39)
[2020-11-23] MEDS: Fenofibrate 145 MG Tablet PO (05:39)
[2020-11-23] MEDS: Nystatin Powder 15gm Bottle 1 APPLIC TOPICAL ×2 (05:40→20:20)
[2020-11-23] MEDS: traMADol 50 MG Tablet PO ×3 (05:42→21:33)
[2020-11-23] MEDS: Glucerna Shake 120 ML LIQUID PO ×3 (05:43→17:25)
[2020-11-23 06:12] LABS: Hematocrit 33.6 % (37-47); Hemoglobin 10.1 g/dL (12.0-15.0); Mean Corp Hgb Conc 30.1 g/dL (32-36); Mean Corpuscular Hgb 27.6 pg (27.0-32.0); Mean Corpuscular Volume 91.8 fL (81-99); Platelet Count 283 K/mm3 (150-450); RBC Distribution Width CV 14.7 % (11.6-14.6); Red Blood Count 3.66 M/mm3 (4.2-5.4); White Blood Count 7.3 K/mm3 (4.4-11.0)
[2020-11-23 06:26] LABS: Bedside Glucose 164 mg/dL (70-110)
[2020-11-23 06:38] LABS: ALB/GLOB Ratio 0.8 RATIO (0.9-2.4); AST(SGOT) 15 U/L (15-37); Alanine Aminotransfer ALT/SGPT 18 U/L (13-56); Albumin, Serum 2.7 g/dL (3.2-5.0); Alkaline Phosphatase 52 U/L (45-117); Anion Gap 3 (5-15); BUN 29 mg/dL (7-18); Calcium,Total 9.5 mg/dL (8.5-10.1); Chloride 110 mmol/L (98-107); Creatinine, Serum 1.26 mg/dL (0.55-1.02); EST Glomerular Filtration Rate 45 mL/min (>60); Est Glom Filt Rate - Afr Amer 54 mL/min (>60); Estimated Creatinine Clearance 57.54 ml/min; Globulin 3.4 g/dL (2.2-4.2); Glucose 134 mg/dL (74-106); Magnesium 1.9 mg/dL (1.6-2.6); Phosphorus 2.6 mg/dL (2.5-4.9); Potassium 5.6 mmol/L (3.5-5.1); Protein, Total 6.1 g/dL (6.4-8.2); Sodium Level 141 mmol/L (136-145)
[2020-11-23] MEDS: Insulin Lispro 100 UNIT/ML INSULN.PEN SC ×4 (07:59→22:24)
[2020-11-23] MEDS: predniSONE 20 MG Tablet 40 MG PO (08:00)
[2020-11-23] MEDS: oxyCODONE 5 MG Tablet PO ×2 (08:20→19:53)
[2020-11-23] MEDS: 0.9% Normal Saline 1,000 ML 75 ML IV (09:12)
--- NOTE | 2020-11-23 09:47 | PCM.PN.BLA ---
Progress Note Ceftriaxone and azithromycin for pneumonia Afebrile Vital signs stable She is currently 97% on 3 L nasal cannula today. All lab was personally reviewed. White blood cell count is normal at 7.3 today. Hemoglobin is 10.1, down from 11.5 on 09/20/2020. Platelets are within normal limits. There are normochromic normocytic indices. Potassium is high at 5.6 today with a sodium of 141. The BUN is down to 29 from 45 and the creatinine today is 1.26, down from 1.60 yesterday. Magnesium and phosphorus are within normal limits. The blood sugar record was reviewed. Blood sugars are mildly increased since starting on prednisone for sciatica however the highest BS was 215 yesterday and the FBS today is 164. Pain is better today and she is wanting to try getting up in the chair. She slept better. She tells me she has a scale at home and she is able to weight herself. Alert and oriented X 3, Pleasant and appears in NAD today No peripheral edema I can lift her leg off the bed today and she is not screaming in pain HRRR Lungs CTA anterior and lateral but, she has a wheezing over the trachea and admits to having a lot of post nasal drip Impressions 1. Sciatica - doing better with the steroids and the Gabapentin 2. DM II 3. hyperkalemia - due to ARB and potassium sparing diuretic in a patient with chronic renal failure. She follows with Dr. Ribeior 4. rhinitis with post nasal drip Increase sliding scale coverage to medium high protocol Discontinue Cozaar due to hyperkalemia Discontinue triamterene/hydrochlorothiazide Lasix 40 mg p.o. now and 1 dose of Kayexalate. Recheck potassium at 6 PM tonight Recheck a BMP and CBC in the a.m. May need to start a loop diuretic daily since we are discontinuing the triamterene/hydrochlorothiazide........she got dehydrated with Lasix in the past so would need to have her do daily weights and give diuretic based on the weight. Try Atrovent nasal spray for rhinitis Inpatient E&M: [id number] Subs Hosp L2
[2020-11-23] MEDS: Sodium Polystyrene Sulfonate 15 GM/60 ML UDC 30 GM PO (10:29)
[2020-11-23] MEDS: Furosemide 40 MG Tablet PO (10:38)
--- NOTE | 2020-11-23 10:48 | NURSING ---
Dr Fry on floor and aware of elevated K+ levels. Orders entered in computer. Lasix and Kayexelate given at this time.
[2020-11-23 11:45] LABS: Bedside Glucose 160 mg/dL (70-110)
[2020-11-23] MEDS: Bisacodyl 10 MG Suppository RECTAL (14:57)
[2020-11-23 15:03] VITALS: BP 142/83; PULSE 78; RESP 20; TEMP 37; O2SAT 94
[2020-11-23 15:07] LABS: Potassium 5.8 mmol/L (3.5-5.1)
[2020-11-23 16:46] LABS: Bedside Glucose 184 mg/dL (70-110)
--- NOTE | 2020-11-23 17:05 | PCM.PN.RX ---
<Calvin Andrade - Last Filed: 11/23/20 17:05> Progress Note - Pharmacy Subjective: [] TCU Admission Objective: Allergies clindamycin Allergy (Verified 11/19/20 16:55) Rash insulin detemir [From Levemir U-100 Insulin] Allergy (Verified 11/19/20 16:55) Rash ciprofloxacin Adverse Reaction (Mild, Verified 11/19/20 16:55) Upset Stomach amoxicillin trihydrate [From Augmentin] Adverse Reaction (Verified 11/19/20 16:55) Nausea also yeast infection morphine Adverse Reaction (Verified 11/19/20 16:55) Nausea potassium clavulanate [From Augmentin] Adverse Reaction (Verified 11/19/20 16:55) Nausea Current Medications Generic Name Dose Route Start Last Admin Trade Name Freq PRN Reason Stop Dose Admin Acetaminophen 1,000 mg 11/22/20 14:00 11/23/20 13:50 Acetaminophen 500 Mg Tablet PO 1,000 mg Q8 BENNIE Administration Alendronate Sodium 70 mg 11/26/20 06:00 Alendronate Sodium 70 Mg Tablet PO MO [facility] Amlodipine Besylate 5 mg 11/21/20 06:00 11/23/20 05:39 Amlodipine 5 Mg Tablet PO 5 mg DAILY BENNIE Administration Bisacodyl 10 mg 11/20/20 21:28 11/23/20 14:57 Bisacodyl 10 Mg Suppository RECTAL 10 mg DAILY PRN Administration Constipation Calamine/Phenol 1 applic 11/21/20 06:00 11/23/20 05:35 Menthol/Lanolin/Calamine/Znox 113 Gm Tube TOPICAL 1 applicatio 0600,2200 BENNIE Administration Protocol Cholecalciferol 1,000 unit 11/21/20 06:00 11/23/20 05:39 Cholecalciferol (Vit D3) 1,000 Unit (25mcg) PO 1,000 unit DAILY BENNIE Administration Cyanocobalamin 1,000 mcg 11/21/20 06:00 11/23/20 05:38 Cyanocobalamin 500 Mcg Tablet PO 1,000 mcg DAILY BENNIE Administration Diazepam 2 mg 11/20/20 20:40 11/22/20 08:34 Diazepam 2 Mg Tablet PO 2 mg TID PRN PRN Administration back pain Enoxaparin Sodium 30 mg 11/21/20 06:00 11/23/20 05:38 Enoxaparin 30 Mg/0.3 Ml Syringe SC 30 mg DAILY@0600 BENNIE Administration Febuxostat 40 mg 11/21/20 06:00 11/23/20 05:39 Febuxostat 40 Mg Tablet PO 40 mg DAILY BENNIE Administration Fenofibrate 145 mg 11/21/20 06:00 11/23/20 05:39 Fenofibrate 145 Mg Tablet PO 145 mg DAILY BENNIE Administration Fluticasone Propionate 2 spray 11/20/20 20:40 Fluticasone 0.05% 1 [place] Nasal.Sry NASAL DAILY PRN PRN CONGESTION Gabapentin 100 mg 11/22/20 17:00 11/22/20 19:51 Gabapentin 100 Mg Capsule PO 100 mg BIDCM BENNIE Administration Gabapentin 300 mg 11/22/20 20:00 11/22/20 19:52 Gabapentin 300 Mg Capsule PO 300 mg 2000 BENNIE Administration Ceftriaxone Sodium 1 gm in 50 mls @ 100 mls/hr 11/20/20 23:22 11/22/20 23:39 Rocephin IV 11/27/20 23:23 Infused QHS BENNIE Infusion Azithromycin 500 mg/ Dextrose 255 mls @ 250 mls/hr 11/21/20 00:35 11/22/20 23:39 IV 11/28/20 00:36 Infused QHS BENNIE Infusion Sodium Chloride 1,000 mls @ 40 mls/hr 11/20/20 23:25 11/23/20 09:12 IV 75 mls/hr .Q25H BENNIE Administration Insulin Glargine 45 units 11/20/20 21:00 11/22/20 22:29 Insulin Glargine 100 Units/Ml Pen SC 45 units QPM BENNIE Administration Insulin Human Lispro 0 unit 11/22/20 11:00 11/23/20 11:55 Insulin Lispro 100 Unit/Ml Insuln.Pen SC 2 units ACHS BENNIE Administration Protocol Ipratropium [place] 2 spray 11/23/20 22:00 Ipratropium [place] 0.06% Nasal [place] NASAL TID BENNIE Lidocaine 2 patch 11/21/20 06:00 11/23/20 05:37 Lidocaine 5% Patch TOPICAL 2 patch DAILY BENNIE Administration Protocol Linagliptin 5 mg 11/21/20 06:00 11/23/20 05:39 Linagliptin 5 Mg Tablet PO 5 mg DAILY BENNIE Administration Magnesium Hydroxide 30 ml 11/20/20 21:28 11/21/20 18:45 Magnesium Hydroxide 30 Ml Udc PO 30 ml DAILY PRN PRN Administration Constipation Mirabegron 50 mg 11/21/20 06:00 11/23/20 05:39 Mirabegron 50 Mg Tab.Er.24h PO 50 mg DAILY BENNIE Administration Montelukast Sodium 10 mg 11/20/20 22:00 11/22/20 19:51 Montelukast 10 Mg Tablet PO 10 mg QHS BENNIE Administration Nutritional Formula (Lactose Free) 120 ml 11/21/20 06:00 11/23/20 11:57 Glucerna Shake 120 Ml Liquid PO 120 ml 4X/DAY BENNIE Administration Nystatin 1 applic 11/21/20 06:00 11/23/20 05:40 Nystatin Powder 15gm Bottle TOPICAL 1 applicatio 0600,2200 BENNIE Administration Protocol Oxycodone HCl 5 mg 11/20/20 21:27 11/23/20 08:20 Oxycodone 5 Mg Tablet PO 5 mg Q4H PRN PRN Administration Pain Score 6-10 Pantoprazole Sodium 40 mg 11/21/20 06:00 11/23/20 05:39 Pantoprazole Sodium 40 Mg Tablet PO 40 mg DAILY BENNIE Administration Polyethylene Glycol 17 gm 11/21/20 06:00 11/23/20 05:38 Polyethylene Glycol 3350 17 Gm Packet PO 17 gm BID BENNIE Administration Prednisone 40 mg 11/23/20 08:00 11/23/20 08:00 Prednisone 20 Mg Tablet PO 11/27/20 08:01 40 mg DAILY@0800 BENNIE Administration Promethazine HCl 12.5 mg 11/22/20 08:55 Promethazine 25 Mg Tablet PO Q6H PRN PRN NAUSEA/VOMITING Fluticasone/Salmeterol 1 puff 11/21/20 06:00 11/23/20 05:36 Fluticasone/Salmeterol 232-14 Inhaler IH 1 puff Q12 BENNIE Administration Senna/Docusate Sodium 2 tablet 11/21/20 06:00 11/23/20 05:39 Senna/Docusate Sodium 1 Tablet PO 2 tablet BID BENNIE Administration Sodium Chloride 10 - 40 ml 11/21/20 20:25 0.9% Saline Lock 10 Ml Syringe IV UD PRN SALINE FLUSH Tramadol HCl 50 mg 11/22/20 14:00 11/23/20 13:51 Tramadol 50 Mg Tablet PO 50 mg Q8 BENNIE Administration Tuberculin PPD 5 tu 11/28/20 10:00 Tuberculin,Purif.Prot.Deriv. 50 Tu/Ml Vial ID 11/28/20 10:01 X1 ONE Umeclidinium [place] 1 puff 11/21/20 06:00 11/23/20 05:37 Umeclidinium [place] Inhaler IH 1 puff DAILY BENNIE Administration Problem List (Last Updated 11/19/20 @ 21:[address] Anahi Gutierrez MD) Debility (Acute) Intractable low back pain (Acute) Compression fracture of L1 vertebra (Chronic) Osteoporosis (Chronic) Hypertension (Chronic) Atrial fibrillation (Chronic) Chronic kidney disease (Chronic) Allergic rhinitis (Chronic) Gout (Chronic) Overactive bladder (Chronic) Constipation (Chronic) Muscle spasm (Chronic) Obstructive sleep apnea (Chronic) GERD (gastroesophageal reflux disease) (Chronic) Diabetes (Chronic) Hyperlipidemia (Chronic) Asthma (Chronic) Vital Signs Temp Pulse Resp BP Pulse Ox 98.6 F 78 20 H 142/83 H 94 11/23/20 15:03 11/23/20 15:03 11/23/20 15:03 11/23/20 15:03 11/23/20 15:03 Oxygen Flow Rate (L/min) 4 Oxygen Delivery Method Nasal Cannula Weight: 86.5 kg Body Mass Index (BMI) 38.5 Sodium 141 mmol/L (136-145) 11/23/20 05:42 Potassium 5.6 mmol/L (3.5-5.1) H 11/23/20 05:42 Potassium 5.8 mmol/L (3.5-5.1) H 11/23/20 05:42 Chloride 110 mmol/L (98-107) H 11/23/20 05:42 Carbon Dioxide 28.0 mmol/L (21.0-32.0) 11/23/20 05:42 Anion Gap 3 (5-15) L 11/23/20 05:42 BUN 29 mg/dL (7-18) H 11/23/20 05:42 Creatinine 1.26 mg/dL (0.55-1.02) H 11/23/20 05:42 Est GFR (MDRD) Af Amer 54 mL/min (>60) L 11/23/20 05:42 Est GFR (MDRD) Non-Af 45 mL/min (>60) L 11/23/20 05:42 BUN/Creatinine Ratio 23.0 RATIO (10-20) H 11/23/20 05:42 Glucose 134 mg/dL (74-106) H 11/23/20 05:42 Assessment/Plan: 1) Pain: Acetaminophen 1000mg po q6, Tramadol 50mg po q8, Oxycodone 5mg po q4h prn for pain 6-10. Please continue to monitor prn usage and for signs/symptoms of increased/decreased pain. 2) GERD: Pantoprazole 40mg po daily. Please continue to monitor for signs/symptoms of GERD 3) DVT Prophylaxis: Lovenox 30mg subq daily. Pt's SrCr is 1.26, CrCl is 57, Plt count is 283. Please continue to monitor labs. Please continue to monitor for signs/symptoms of bleeding/clot. 4) Allergic Rhinitis: Loratadine 10mg po daily, Flonase nasal spray-2 sprays nasally once daily as needed. Please continue to monitor for signs/symptoms of allergies/congestion. 5) Hypertension: Amlodipine 5mg po daily. Pt's average blood pressure is 132/66. Please continue to monitor. 6) Asthma: Montelukast 10mg po qhs, Fluticasone/Salmeterol 232-14 diskus q12, Umeclidinium 1 inhalation once daily. Inhaled corticosteroids have the potential to cause thrush. Please ensure that pt rinses mouth with water, gargles, and spits after each dose of Fluticase/Salmeterol. 7) Low Back Pain: Gabapentin 300mg at 8pm and 100mg po bid with meals, Lidocaine Patch 2 patches topically once daily. Lidocaine patches are to be worn for 12 hours and have a 12 hour Lidocaine free period. Please ensure that is receiving proper 12 hour Lidocaine free period 8) Gout: Febuxostat 40mg po daily. Pts last Uric Acid level was within normal limits. Please continue to monitor. 9) Hyperlipidemia: Fenofibrate 145mg po daily. Pt's last Lipid panel and Triglyceride level were within normal limits. Please continue to monitor. 10) Diabetes: Lantus 45units subq qpm, Linagliptin 5mg po daily, Sliding Scale insulin before meals and at bedtime. Pt's average of the last 10 bs readings is 156.4. Please continue to monitor and adjust medications accordingly Psychotropic Medications: Diazepam 2mg po tid prn for back pain. Please continue to monitor prn usage and for signs/symptoms of increased/decreased back pain Unnecessary Medications: Bowel Regimen: Bisacodyl 10mg suppository daily prn, Miralax 17gm po bid, Senna/Docusate 2 tabs po bid, MOM 30ml po daily prn. Please continue to monitor prn usage and for signs/symptoms of constipation/diarrhea. Date of Note:: 11/23/20 - Provider Comments Provider responsibility: Provider responsible to enter orders to implement recommendations <Kb Enriquez Chi - Last Filed: 11/25/20 11:33> Progress Note - Pharmacy Subjective: [] Objective: Allergies clindamycin Allergy (Verified 11/19/20 16:55) Rash insulin detemir [From Levemir U-100 Insulin] Allergy (Verified 11/19/20 16:55) Rash ciprofloxacin Adverse Reaction (Mild, Verified 11/19/20 16:55) Upset Stomach amoxicillin trihydrate [From Augmentin] Adverse Reaction (Verified 11/19/20 16:55) Nausea also yeast infection morphine Adverse Reaction (Verified 11/19/20 16:55) Nausea potassium clavulanate [From Augmentin] Adverse Reaction (Verified 11/19/20 16:55) Nausea Current Medications Generic Name Dose Route Start Last Admin Trade Name Freq PRN Reason Stop Dose Admin Acetaminophen 1,000 mg 11/22/20 14:00 11/25/20 06:38 Acetaminophen 500 Mg Tablet PO 1,000 mg Q8 BENNIE Administration Alendronate Sodium 70 mg 11/26/20 06:00 Alendronate Sodium 70 Mg Tablet PO MO BENNIE Amlodipine Besylate 5 mg 11/21/20 06:00 11/25/20 06:34 Amlodipine 5 Mg Tablet PO 5 mg DAILY BENNIE Administration Bisacodyl 10 mg 11/20/20 21:28 11/23/20 14:57 Bisacodyl 10 Mg Suppository RECTAL 10 mg DAILY PRN Administration Constipation Calamine/Phenol 1 applic 11/21/20 06:00 11/25/20 06:36 Menthol/Lanolin/Calamine/Znox 113 Gm Tube TOPICAL 1 applicatio 0600,2200 [facility] Administration Protocol Cholecalciferol 1,000 unit 11/21/20 06:00 11/25/20 06:34 Cholecalciferol (Vit D3) 1,000 Unit (25mcg) PO 1,000 unit DAILY BENNIE Administration Cyanocobalamin 1,000 mcg 11/21/20 06:00 11/25/20 06:34 Cyanocobalamin 500 Mcg Tablet PO 1,000 mcg DAILY BENNIE Administration Diazepam 2 mg 11/20/20 20:40 11/22/20 08:34 Diazepam 2 Mg Tablet PO 2 mg TID PRN PRN Administration back pain Enoxaparin Sodium 30 mg 11/21/20 06:00 11/25/20 06:34 Enoxaparin 30 Mg/0.3 Ml Syringe SC 30 mg DAILY@0600 [facility] Administration Febuxostat 40 mg 11/21/20 06:00 11/25/20 06:34 Febuxostat 40 Mg Tablet PO 40 mg DAILY BENNIE Administration Fenofibrate 145 mg 11/21/20 06:00 11/25/20 06:34 Fenofibrate 145 Mg Tablet PO 145 mg DAILY [facility] Administration Fluticasone Propionate 2 spray 11/20/20 20:40 Fluticasone 0.05% 1 [place] Nasal.Sry NASAL DAILY PRN PRN CONGESTION Gabapentin 100 mg 11/22/20 17:00 11/25/20 09:43 Gabapentin 100 Mg Capsule PO 100 mg BIDCM BENNIE Administration Gabapentin 300 mg 11/22/20 20:00 11/24/20 20:12 Gabapentin 300 Mg Capsule PO 300 mg 2000 BENNIE Administration Ceftriaxone Sodium 1 gm in 50 mls @ 100 mls/hr 11/20/20 23:22 11/24/20 22:20 Rocephin IV 11/27/20 23:23 Infused QHS BENNIE Infusion Azithromycin 500 mg/ Dextrose 255 mls @ 250 mls/hr 11/21/20 00:35 11/25/20 00:05 IV 11/28/20 00:36 Infused QHS BENNIE Infusion Sodium Chloride 1,000 mls @ 40 mls/hr 11/20/20 23:25 11/24/20 06:38 IV 75 mls/hr .Q25H BENNIE Administration Insulin Glargine 45 units 11/20/20 21:00 11/24/20 22:10 Insulin Glargine 100 Units/Ml Pen SC 45 units QPM BENNIE Administration Insulin Human Lispro 0 unit 11/22/20 11:00 11/25/20 11:19 Insulin Lispro 100 Unit/Ml Insuln.Pen SC Not Given ACHS [facility] Protocol Ipratropium [place] 2 spray 11/23/20 22:00 11/25/20 06:31 Ipratropium [place] 0.06% Nasal [place] NASAL 2 spray TID BENNIE Administration Lidocaine 2 patch 11/21/20 06:00 11/25/20 06:36 Lidocaine 5% Patch TOPICAL 2 patch DAILY BENNIE Administration Protocol Linagliptin 5 mg 11/21/20 06:00 11/25/20 06:34 Linagliptin 5 Mg Tablet PO 5 mg DAILY BENNIE Administration Magnesium Hydroxide 30 ml 11/20/20 21:28 11/23/20 17:25 Magnesium Hydroxide 30 Ml Udc PO 30 ml DAILY PRN PRN Administration Constipation Mirabegron 50 mg 11/21/20 06:00 11/25/20 06:35 Mirabegron 50 Mg Tab.Er.24h PO 50 mg DAILY BENNIE Administration Montelukast Sodium 10 mg 11/20/20 22:00 11/24/20 22:08 Montelukast 10 Mg Tablet PO 10 mg QHS BENNIE Administration Nutritional Formula (Lactose Free) 120 ml 11/21/20 06:00 11/25/20 11:19 Glucerna Shake 120 Ml Liquid PO Not Given 4X/DAY [facility] Nystatin 1 applic 11/21/20 06:00 11/25/20 06:35 Nystatin Powder 15gm Bottle TOPICAL 1 applicatio 0600,2200 BENNIE Administration Protocol Oxycodone HCl 5 mg 11/20/20 21:27 11/24/20 00:50 Oxycodone 5 Mg Tablet PO 5 mg Q4H PRN PRN Administration Pain Score 6-10 Pantoprazole Sodium 40 mg 11/21/20 06:00 11/25/20 06:37 Pantoprazole Sodium 40 Mg Tablet PO 40 mg DAILY BENNIE Administration Polyethylene Glycol 17 gm 11/21/20 06:00 11/25/20 06:42 Polyethylene Glycol 3350 17 Gm Packet PO 17 gm BID BENNIE Administration Prednisone 40 mg 11/23/20 08:00 11/25/20 09:43 Prednisone 20 Mg Tablet PO 11/27/20 08:01 40 mg DAILY@0800 BENNIE Administration Promethazine HCl 12.5 mg 11/22/20 08:55 11/23/20 21:27 Promethazine 25 Mg Tablet PO 12.5 mg Q6H PRN PRN Administration NAUSEA/VOMITING Fluticasone/Salmeterol 1 puff 11/21/20 06:00 11/25/20 06:33 Fluticasone/Salmeterol 232-14 Inhaler IH 1 puff Q12 BENNIE Administration Senna/Docusate Sodium 2 tablet 11/21/20 06:00 11/25/20 06:34 Senna/Docusate Sodium 1 Tablet PO 2 tablet BID BENNIE Administration Sodium Chloride 10 - 40 ml 11/21/20 20:25 0.9% Saline Lock 10 Ml Syringe IV UD PRN SALINE FLUSH Tramadol HCl 50 mg 11/22/20 14:00 11/25/20 06:44 Tramadol 50 Mg Tablet PO 50 mg Q8 BENNIE Administration Tuberculin PPD 5 tu 11/28/20 10:00 Tuberculin,Purif.Prot.Deriv. 50 Tu/Ml Vial ID 11/28/20 10:01 X1 ONE Umeclidinium [place] 1 puff 11/21/20 06:00 11/25/20 06:32 Umeclidinium [place] Inhaler IH 1 puff DAILY BENNIE Administration Problem List (Last Updated 11/19/20 @ 21:[address] Anahi Gutierrez MD) Debility (Acute) Intractable low back pain (Acute) Compression fracture of L1 vertebra (Chronic) Osteoporosis (Chronic) Hypertension (Chronic) Atrial fibrillation (Chronic) Chronic kidney disease (Chronic) Allergic rhinitis (Chronic) Gout (Chronic) Overactive bladder (Chronic) Constipation (Chronic) Muscle spasm (Chronic) Obstructive sleep apnea (Chronic) GERD (gastroesophageal reflux disease) (Chronic) Diabetes (Chronic) Hyperlipidemia (Chronic) Asthma (Chronic) Vital Signs Temp Pulse Resp BP Pulse Ox 96.6 F L 66 18 139/67 H 97 11/25/20 04:00 11/25/20 04:00 11/25/20 04:00 11/25/20 04:00 11/25/20 04:00 Oxygen Flow Rate (L/min) 4 Oxygen Delivery Method Nasal Cannula Weight: 86.5 kg Body Mass Index (BMI) 38.5 Sodium 142 mmol/L (136-145) 11/24/20 06:22 Potassium 5.2 mmol/L (3.5-5.1) H 11/24/20 06:22 Chloride 108 mmol/L (98-107) H 11/24/20 06:22 Carbon Dioxide 32.0 mmol/L (21.0-32.0) 11/24/20 06:22 Anion Gap 2 (5-15) L 11/24/20 06:22 BUN 31 mg/dL (7-18) H 11/24/20 06:22 Creatinine 1.27 mg/dL (0.55-1.02) H 11/24/20 06:22 Est GFR (MDRD) Af Amer 54 mL/min (>60) L 11/24/20 06:22 Est GFR (MDRD) Non-Af 44 mL/min (>60) L 11/24/20 06:22 BUN/Creatinine Ratio 24.4 RATIO (10-20) H 11/24/20 06:22 Glucose 110 mg/dL (74-106) H 11/24/20 06:22 Assessment/Plan: Psychotropic Medications: Unnecessary Medications: Bowel Regimen: - Provider Comments Provider responsibility: Provider responsible to enter orders to implement recommendations Provider Comments to Recommendations by Pharmacy: Agree
[2020-11-23] MEDS: Gabapentin 100 MG Capsule PO (17:21)
[2020-11-23] MEDS: Magnesium Hydroxide 30 ML UDC PO (17:25)
[2020-11-23 19:24] LABS: Potassium 5.6 mmol/L (3.5-5.1)
[2020-11-23] MEDS: Gabapentin 300 MG Capsule PO (20:19)
[2020-11-23] MEDS: Montelukast 10 MG Tablet PO (20:22)
--- NOTE | 2020-11-23 21:00 | NURSING ---
Pt crying with pain form bladder area , states im having awful bladder spasms, med with pain med, tc to Dr per pt request and asked if she could start trulance as she took at home, Dr bhagat will assess in am,
--- NOTE | 2020-11-23 21:25 | NURSING ---
Vomitted large amts undigeted food with light brown fluid, moaning, med with Phenergan and washed up for comfort
[2020-11-23] MEDS: proMETHazine 25 MG Tablet 12.5 MG PO (21:27)
[2020-11-23 21:51] LABS: Bedside Glucose 239 mg/dL (70-110)
[2020-11-23] MEDS: Ceftriaxone 1 GM/50 ML BAG IV (22:27)
[2020-11-23] MEDS: Ipratropium Bromide 0.06% NASAL SPRAY 2 SPRAY NASAL (22:53)
[2020-11-24] MEDS: oxyCODONE 5 MG Tablet PO (00:50)
--- NOTE | 2020-11-24 01:00 | NURSING ---
Pt cont to c/o bladder spasm, bladder scanned for greater than 999, straight cathed for 1200 cc clear yellow urine, pt states feels better
[2020-11-24 05:46] VITALS: BP 142/70; PULSE 71; RESP 17; TEMP 36.6; O2SAT 98
[2020-11-24] MEDS: Ipratropium Bromide 0.06% NASAL SPRAY 2 SPRAY NASAL ×3 (05:47→22:08)
[2020-11-24] MEDS: Nystatin Powder 15gm Bottle 1 APPLIC TOPICAL ×2 (05:48→22:08)
[2020-11-24] MEDS: Menthol/Lanolin/Calamine/Znox 113 GM Tube 1 APPLIC TOPICAL ×2 (05:48→22:08)
[2020-11-24] MEDS: Fluticasone/Salmeterol 232-14 Inhaler 1 PUFF IH ×2 (05:49→17:53)
[2020-11-24] MEDS: Umeclidinium Bromide Inhaler 1 PUFF IH (05:49)
[2020-11-24] MEDS: Mirabegron 50 MG TAB.ER.24H PO (05:50)
[2020-11-24] MEDS: Polyethylene Glycol 3350 17 GM PACKET PO ×2 (05:50→17:53)
[2020-11-24] MEDS: Cyanocobalamin 500 MCG Tablet 1000 MCG PO (05:50)
[2020-11-24] MEDS: Senna/Docusate Sodium 1 Tablet 2 TABLET PO (05:50)
[2020-11-24] MEDS: Acetaminophen 500 MG Tablet 1000 MG PO ×3 (05:51→22:09)
[2020-11-24] MEDS: Enoxaparin 30 MG/0.3 ML Syringe SC (05:51)
[2020-11-24] MEDS: Fenofibrate 145 MG Tablet PO (05:51)
[2020-11-24] MEDS: Febuxostat 40 MG TABLET PO (05:51)
[2020-11-24] MEDS: amLODIPine 5 MG Tablet PO (05:51)
[2020-11-24] MEDS: Pantoprazole Sodium 40 MG Tablet PO (05:51)
[2020-11-24] MEDS: LINAGLIPTIN 5 MG TABLET PO (05:51)
[2020-11-24] MEDS: Lidocaine 5% Patch 2 PATCH TOPICAL (05:52)
[2020-11-24 06:21] LABS: Bedside Glucose 116 mg/dL (70-110)
[2020-11-24] MEDS: traMADol 50 MG Tablet PO ×3 (06:37→22:08)
[2020-11-24] MEDS: Glucerna Shake 120 ML LIQUID PO (06:37)
[2020-11-24] MEDS: 0.9% Normal Saline 1,000 ML 75 ML IV (06:38)
[2020-11-24 06:44] LABS: Absolute Lymphocyte Count 0.69 X10^3/uL (0.83-4.51); Absolute Neutrophil Count 8.9 X10^3/uL (2.0-7.7); Basophil# 0.04 X10^3/uL; Basophil% 0.4 % (0-1); Eosinophil# 0.03 X10^3/uL; Eosinophils% 0.3 % (0-5); Hematocrit 36.2 % (37-47); Lymphocyte # 0.69 X10^3/ul (4.0); Lymphocyte % 6.6 % (19-41); Mean Corp Hgb Conc 30.4 g/dL (32-36); Mean Corpuscular Hgb 27.8 pg (27.0-32.0); Mean Corpuscular Volume 91.4 fL (81-99); Mean Platelet Vol. 9.9 fl (6.2-12.0); Monocyte# 0.82 X10^3/uL; Monocyte% 7.8 % (0-10); NRBC Flagged by Analyzer 0 % (0-5); Neutrophil # 8.88 X10^3/uL (2.7-7.7); Neutrophil % 84.2 % (47-70); Platelet Count 373 K/mm3 (150-450); RBC Distribution Width CV 14.9 % (11.6-14.6); RBC Distribution Width SD 50.1 fl (35.1-43.9); Red Blood Count 3.96 M/mm3 (4.2-5.4); White Blood Count 10.5 K/mm3 (4.4-11.0)
[2020-11-24 07:01] LABS: Anion Gap 2 (5-15); BUN 31 mg/dL (7-18); BUN/Creat Ratio 24.4 RATIO (10-20); Calcium,Total 9.6 mg/dL (8.5-10.1); Chloride 108 mmol/L (98-107); Creatinine, Serum 1.27 mg/dL (0.55-1.02); EST Glomerular Filtration Rate 44 mL/min (>60); Est Glom Filt Rate - Afr Amer 54 mL/min (>60); Estimated Creatinine Clearance 57.09 ml/min; Glucose 110 mg/dL (74-106); Potassium 5.2 mmol/L (3.5-5.1); Sodium Level 142 mmol/L (136-145)
[2020-11-24] MEDS: predniSONE 20 MG Tablet 40 MG PO (08:37)
[2020-11-24] MEDS: Gabapentin 100 MG Capsule PO ×2 (08:39→17:53)
[2020-11-24 10:00] VITALS: PULSE 70; RESP 16
[2020-11-24 11:46] LABS: Bedside Glucose 146 mg/dL (70-110)
--- NOTE | 2020-11-24 15:46 | PCM.PN.BLA ---
Progress Note Afebrile VSS Maintaining appropriate oxygen saturation on RA bladder scan with > 600 cc and she is c/o suprapubic discomfort. She denies N/V/flank pain. Discussed with nursing - no problems that need addressed Reviewed the PT/OT/ST notes Medication list reviewed She appear in NAD. she is lying in bed and watching TV. she tells me that she would like to get into the chair today. Lungs - CTA anterior and lateral HRRR abd - distended and tympanic.....pt attributes this to IBS. she normally takes Trulance for this at home. no peripheral edema Impressions 1. CRF 2. Hyperkalemia 3. dehydration 4. radiculopathy RLE 5. DMII 6. urine retention Insert Winter catheter for urine retention recheck lab on Thursday continue the prednisone Continue the Gabapentin Inpatient E&M: 14936 Subs Hosp L2
[2020-11-24 16:00] VITALS: BP 138/54; PULSE 71; RESP 18; TEMP 36.2; O2SAT 95
[2020-11-24 16:51] LABS: Bedside Glucose 173 mg/dL (70-110)
[2020-11-24] MEDS: Insulin Lispro 100 UNIT/ML INSULN.PEN SC ×2 (17:53→22:11)
[2020-11-24] MEDS: Gabapentin 300 MG Capsule PO (20:12)
[2020-11-24 21:16] LABS: Bedside Glucose 212 mg/dL (70-110)
[2020-11-24] MEDS: Ceftriaxone 1 GM/50 ML BAG IV (21:48)
[2020-11-24] MEDS: Montelukast 10 MG Tablet PO (22:08)
[2020-11-25 04:00] VITALS: BP 139/67; PULSE 66; RESP 18; TEMP 35.9; O2SAT 97
[2020-11-25 06:15] LABS: Bedside Glucose 72 mg/dL (70-110)
[2020-11-25] MEDS: Ipratropium Bromide 0.06% NASAL SPRAY 2 SPRAY NASAL ×3 (06:31→20:34)
[2020-11-25] MEDS: Umeclidinium Bromide Inhaler 1 PUFF IH (06:32)
[2020-11-25] MEDS: Fluticasone/Salmeterol 232-14 Inhaler 1 PUFF IH ×2 (06:33→17:48)
[2020-11-25] MEDS: Enoxaparin 30 MG/0.3 ML Syringe SC (06:34)
[2020-11-25] MEDS: LINAGLIPTIN 5 MG TABLET PO (06:34)
[2020-11-25] MEDS: Cyanocobalamin 500 MCG Tablet 1000 MCG PO (06:34)
[2020-11-25] MEDS: Senna/Docusate Sodium 1 Tablet 2 TABLET PO ×2 (06:34→17:48)
[2020-11-25] MEDS: Fenofibrate 145 MG Tablet PO (06:34)
[2020-11-25] MEDS: Febuxostat 40 MG TABLET PO (06:34)
[2020-11-25] MEDS: amLODIPine 5 MG Tablet PO (06:34)
[2020-11-25] MEDS: Nystatin Powder 15gm Bottle 1 APPLIC TOPICAL ×2 (06:35→21:21)
[2020-11-25] MEDS: Mirabegron 50 MG TAB.ER.24H PO (06:35)
[2020-11-25] MEDS: Lidocaine 5% Patch 2 PATCH TOPICAL (06:36)
[2020-11-25] MEDS: Menthol/Lanolin/Calamine/Znox 113 GM Tube 1 APPLIC TOPICAL ×2 (06:36→20:35)
[2020-11-25] MEDS: Pantoprazole Sodium 40 MG Tablet PO (06:37)
[2020-11-25] MEDS: Acetaminophen 500 MG Tablet 1000 MG PO ×3 (06:38→20:36)
[2020-11-25] MEDS: Polyethylene Glycol 3350 17 GM PACKET PO ×2 (06:42→17:53)
[2020-11-25] MEDS: traMADol 50 MG Tablet PO ×3 (06:44→20:36)
[2020-11-25] MEDS: Gabapentin 100 MG Capsule PO ×2 (09:43→17:48)
[2020-11-25] MEDS: predniSONE 20 MG Tablet 40 MG PO (09:43)
--- NOTE | 2020-11-25 11:35 | PCM.PN.BLA ---
Progress Note Afebrile VSS Maintaining appropriate oxygen saturation on RA Oral intake is improving. She took 1180 orally yesterday. Fluid balance for 11/24/2020 was -831. She had 2850 cc out of urine. Winter was inserted yesterday for urine retention. Last bowel movement was yesterday. Discussed with nursing - no problems that need addressed Medication list reviewed. She sat at the side of the bed for 5 minutes yesterday but, has not been in the chair yet. She took only 1 dose of Oxy 5 mg yesterday.....but took 3 doses of Tramadol. She tells me that the Tramadol does not help her with pain. Has had epidurals from Dr. Medina in the past. Blood sugar record was reviewed. The fasting sugar today was 72. The HS BS was 212 (she had 4 units of SSI coverage). Today the BS at noon was 117. This is day #4 of steroids now. She does not appear in any discomfort lying in the bed. Much better than 11/22/20. The urine in the Winter bag is very pale and clear. Lungs - CTA HRRR, no gallop abd - distended and tympanic, NT to palpation no peripheral edema no focal neuro deficits Impressions 1. RLE radiculopathy with canal stenosis at L3-4 and foraminal stenosis on MRI in the past. She has had no trauma recently. 2. CRF - follows with Dr. Ribeiro 3. Hyperkalemia - was on a potassium sparing diuretic and an ARB and these have been discontinued. 4. urine retention 5. DM II - blood sugars are mildly increased due to Prednisone 6. IBS with constipation Discontinue the Myrbetriq.........urine retention is a potential side effect. Continue the estrogen cream. Could consider a consult with Dr. Thea Sunshine if she has persistent urine retention. DC the Tramadol and continue the Oxycodone Increase the Gabapentin Consider consult with spine surgeon prior to getting MRI. She used to go to [facility] 4 X's a week and now she has stopped going due to COVID. she has been sitting a lot and not getting exercise. No stretching. She would benefit from PT in the pool at [facility] when she is discharged. I reinforced with her that regular exercise and maintaining good core strength is going to be essential for maintaining function and mobility going forward. She may benefit from a Hospital bed at home to make it easier for her to change positions and get out of bed in the AM. Recheck lab in the AM....if the K is still elevated then add a potassium restriction to the diet. Inpatient E&M: 19189 Subs Hosp L2
[2020-11-25 11:36] LABS: Bedside Glucose 117 mg/dL (70-110)
[2020-11-25 15:46] VITALS: BP 135/69; PULSE 74; RESP 16; TEMP 36.2; O2SAT 95
[2020-11-25] MEDS: 0.9% Normal Saline 1,000 ML 40 ML IV (16:00)
[2020-11-25 16:40] LABS: Bedside Glucose 182 mg/dL (70-110)
[2020-11-25] MEDS: Insulin Lispro 100 UNIT/ML INSULN.PEN SC (17:47)
[2020-11-25] MEDS: Acarbose 50 MG Tablet 25 MG PO (17:49)
[2020-11-25 20:00] VITALS: BP 134/60; PULSE 73; RESP 18; TEMP 36.9; O2SAT 97
[2020-11-25] MEDS: Gabapentin 300 MG Capsule PO (20:10)
[2020-11-25 20:35] LABS: Bedside Glucose 207 mg/dL (70-110)
[2020-11-25] MEDS: Montelukast 10 MG Tablet PO (20:36)
[2020-11-25] MEDS: Ceftriaxone 1 GM/50 ML BAG IV (21:55)
[2020-11-26 04:00] VITALS: BP 135/59; PULSE 71; RESP 16; TEMP 37.1; O2SAT 96
[2020-11-26] MEDS: Ipratropium Bromide 0.06% NASAL SPRAY 2 SPRAY NASAL ×3 (05:07→20:28)
[2020-11-26] MEDS: Umeclidinium Bromide Inhaler 1 PUFF IH (05:08)
[2020-11-26] MEDS: Fluticasone/Salmeterol 232-14 Inhaler 1 PUFF IH ×2 (05:08→17:19)
[2020-11-26] MEDS: Senna/Docusate Sodium 1 Tablet 2 TABLET PO ×2 (05:10→17:19)
[2020-11-26] MEDS: amLODIPine 5 MG Tablet PO (05:10)
[2020-11-26] MEDS: Cyanocobalamin 500 MCG Tablet 1000 MCG PO (05:10)
[2020-11-26] MEDS: LINAGLIPTIN 5 MG TABLET PO (05:10)
[2020-11-26] MEDS: Alendronate Sodium 70 MG Tablet PO (05:11)
[2020-11-26] MEDS: Fenofibrate 145 MG Tablet PO (05:11)
[2020-11-26] MEDS: Febuxostat 40 MG TABLET PO (05:11)
[2020-11-26] MEDS: Pantoprazole Sodium 40 MG Tablet PO (05:11)
[2020-11-26] MEDS: Menthol/Lanolin/Calamine/Znox 113 GM Tube 1 APPLIC TOPICAL ×2 (05:11→20:28)
[2020-11-26] MEDS: Lidocaine 5% Patch 2 PATCH TOPICAL (05:12)
[2020-11-26] MEDS: Enoxaparin 30 MG/0.3 ML Syringe SC (05:12)
[2020-11-26] MEDS: traMADol 50 MG Tablet PO ×3 (05:13→20:36)
[2020-11-26] MEDS: Acetaminophen 500 MG Tablet 1000 MG PO ×3 (05:13→20:30)
[2020-11-26] MEDS: Nystatin Powder 15gm Bottle 1 APPLIC TOPICAL ×2 (05:14→20:29)
[2020-11-26] MEDS: Polyethylene Glycol 3350 17 GM PACKET PO ×2 (05:33→17:17)
[2020-11-26 06:41] LABS: Bedside Glucose 118 mg/dL (70-110)
[2020-11-26] MEDS: predniSONE 20 MG Tablet 40 MG PO (08:04)
[2020-11-26] MEDS: Acarbose 50 MG Tablet 25 MG PO ×3 (08:05→17:52)
[2020-11-26] MEDS: Gabapentin 100 MG Capsule PO ×2 (08:06→17:18)
[2020-11-26 10:18] VITALS: PULSE 72; RESP 18; O2SAT 98
[2020-11-26 11:06] LABS: Bedside Glucose 103 mg/dL (70-110)
[2020-11-26 14:28] VITALS: BP 139/55; PULSE 71; RESP 17; TEMP 36.1; O2SAT 98
[2020-11-26 16:56] LABS: Bedside Glucose 174 mg/dL (70-110)
[2020-11-26] MEDS: 0.9% Normal Saline 1,000 ML 40 ML IV (17:02)
[2020-11-26] MEDS: Insulin Lispro 100 UNIT/ML INSULN.PEN SC (17:50)
[2020-11-26] MEDS: Montelukast 10 MG Tablet PO (20:31)
[2020-11-26] MEDS: Gabapentin 300 MG Capsule PO (20:32)
[2020-11-26 21:26] LABS: Bedside Glucose 204 mg/dL (70-110)
[2020-11-26] MEDS: Ceftriaxone 1 GM/50 ML BAG IV (21:53)
[2020-11-27 05:50] VITALS: BP 144/69; PULSE 74; RESP 16; TEMP 36.6; O2SAT 100
[2020-11-27] MEDS: Ipratropium Bromide 0.06% NASAL SPRAY 2 SPRAY NASAL ×3 (05:52→20:46)
[2020-11-27] MEDS: Fluticasone/Salmeterol 232-14 Inhaler 1 PUFF IH ×2 (05:52→17:19)
[2020-11-27] MEDS: Umeclidinium Bromide Inhaler 1 PUFF IH (05:52)
[2020-11-27] MEDS: Enoxaparin 30 MG/0.3 ML Syringe SC (05:53)
[2020-11-27] MEDS: Febuxostat 40 MG TABLET PO (05:53)
[2020-11-27] MEDS: Fenofibrate 145 MG Tablet PO (05:53)
[2020-11-27] MEDS: LINAGLIPTIN 5 MG TABLET PO (05:53)
[2020-11-27] MEDS: Cyanocobalamin 500 MCG Tablet 1000 MCG PO (05:54)
[2020-11-27] MEDS: Pantoprazole Sodium 40 MG Tablet PO (05:54)
[2020-11-27] MEDS: amLODIPine 5 MG Tablet PO (05:54)
[2020-11-27] MEDS: Acetaminophen 500 MG Tablet 1000 MG PO ×3 (05:54→20:39)
[2020-11-27] MEDS: Nystatin Powder 15gm Bottle 1 APPLIC TOPICAL ×2 (05:55→20:48)
[2020-11-27] MEDS: Menthol/Lanolin/Calamine/Znox 113 GM Tube 1 APPLIC TOPICAL ×2 (05:55→20:48)
[2020-11-27] MEDS: traMADol 50 MG Tablet PO ×3 (05:58→20:42)
[2020-11-27] MEDS: Polyethylene Glycol 3350 17 GM PACKET PO (05:58)
[2020-11-27] MEDS: Lidocaine 5% Patch 2 PATCH TOPICAL (05:59)
[2020-11-27 06:26] LABS: Bedside Glucose 87 mg/dL (70-110)
[2020-11-27] MEDS: Acarbose 50 MG Tablet 25 MG PO ×3 (07:44→17:17)
[2020-11-27] MEDS: predniSONE 20 MG Tablet 40 MG PO (07:44)
[2020-11-27] MEDS: Gabapentin 100 MG Capsule PO ×2 (07:44→17:17)
[2020-11-27 11:01] LABS: Bedside Glucose 148 mg/dL (70-110)
[2020-11-27] MEDS: diazePAM 2 MG Tablet PO (11:06)
--- NOTE | 2020-11-27 14:00 | CHAPLAIN ---
Type of Pastoral Visit ___ Initial Visit ___ Follow-up Visit ___ On-call Visit ___ General Patient Visit ___ Spiritual Assessment ___ Family Conference ___ Bereavement ___ Rapid Response ___ Code Blue _x__ Other (describe below) Pastoral Care Referral From _x__ Patient ___ Family ___ Nurse ___ Physician ___ Deicer Tester ___ Extrusion Engineer ___ Other (describe below) Sacrament/Intervention ___ Active listening ___ Anointing ___ Synagogue ___ Bereavement ___ Communion ___ Calista exploration ___ ___ Life review ___ Prayer ___ Reconciliation ___ Sacrament of Sick ___ Supportive presence ___ Wedding ___ Other (describe below) Pastoral Comments two attempts to visit patient but she was sleeping; left a calling card
--- NOTE | 2020-11-27 15:08 | NURSING ---
Resident and family updated on COVID status on the unit.
[2020-11-27 17:05] LABS: Bedside Glucose 192 mg/dL (70-110)
[2020-11-27] MEDS: Insulin Lispro 100 UNIT/ML INSULN.PEN SC (17:18)
[2020-11-27] MEDS: 0.9% Normal Saline 1,000 ML 40 ML IV (20:32)
[2020-11-27] MEDS: Gabapentin 300 MG Capsule PO (20:39)
[2020-11-27] MEDS: Montelukast 10 MG Tablet PO (20:39)
[2020-11-27 20:56] LABS: Bedside Glucose 169 mg/dL (70-110)
[2020-11-27] MEDS: Ceftriaxone 1 GM/50 ML BAG IV (21:00)
[2020-11-27] MEDS: oxyCODONE 5 MG Tablet PO (22:19)
[2020-11-28 05:04] VITALS: BP 132/56; PULSE 65; RESP 16; TEMP 36.3; O2SAT 97
[2020-11-28] MEDS: Senna/Docusate Sodium 1 Tablet 2 TABLET PO ×2 (05:07→18:09)
[2020-11-28] MEDS: traMADol 50 MG Tablet PO ×3 (05:08→21:20)
[2020-11-28] MEDS: Febuxostat 40 MG TABLET PO (05:08)
[2020-11-28] MEDS: amLODIPine 5 MG Tablet PO (05:09)
[2020-11-28] MEDS: Cyanocobalamin 500 MCG Tablet 1000 MCG PO (05:09)
[2020-11-28] MEDS: LINAGLIPTIN 5 MG TABLET PO (05:09)
[2020-11-28] MEDS: Fenofibrate 145 MG Tablet PO (05:09)
[2020-11-28] MEDS: Nystatin Powder 15gm Bottle 1 APPLIC TOPICAL ×2 (05:10→21:28)
[2020-11-28] MEDS: Pantoprazole Sodium 40 MG Tablet PO (05:10)
[2020-11-28] MEDS: Acetaminophen 500 MG Tablet 1000 MG PO ×3 (05:10→21:18)
[2020-11-28] MEDS: Menthol/Lanolin/Calamine/Znox 113 GM Tube 1 APPLIC TOPICAL ×2 (05:11→21:24)
[2020-11-28] MEDS: Ipratropium Bromide 0.06% NASAL SPRAY 2 SPRAY NASAL ×3 (05:12→21:25)
[2020-11-28] MEDS: Umeclidinium Bromide Inhaler 1 PUFF IH (05:13)
[2020-11-28] MEDS: Fluticasone/Salmeterol 232-14 Inhaler 1 PUFF IH ×2 (05:13→18:09)
[2020-11-28] MEDS: Enoxaparin 30 MG/0.3 ML Syringe SC (05:14)
[2020-11-28] MEDS: Lidocaine 5% Patch 2 PATCH TOPICAL (05:14)
[2020-11-28] MEDS: Polyethylene Glycol 3350 17 GM PACKET PO ×2 (05:14→18:08)
[2020-11-28 06:08] LABS: Hematocrit 35.8 % (37-47); Hemoglobin 10.6 g/dL (12.0-15.0); Mean Corp Hgb Conc 29.6 g/dL (32-36); Mean Corpuscular Hgb 27.2 pg (27.0-32.0); Mean Platelet Vol. 9.6 fl (6.2-12.0); POSITIVE COUNT YES; POSITIVE MORPHOLOGY YES; Platelet Count 375 K/mm3 (150-450); RBC Distribution Width CV 14.9 % (11.6-14.6); RBC Distribution Width SD 50.3 fl (35.1-43.9); Red Blood Count 3.89 M/mm3 (4.2-5.4); White Blood Count 10.1 K/mm3 (4.4-11.0)
[2020-11-28 06:12] LABS: Differential Indicated MANUAL DIFF
[2020-11-28 06:25] LABS: Bedside Glucose 100 mg/dL (70-110)
[2020-11-28 06:27] LABS: Anion Gap 3 (5-15); BUN 34 mg/dL (7-18); BUN/Creat Ratio 25.4 RATIO (10-20); Calcium,Total 9.3 mg/dL (8.5-10.1); Chloride 105 mmol/L (98-107); Creatinine, Serum 1.34 mg/dL (0.55-1.02); EST Glomerular Filtration Rate 42 mL/min (>60); Est Glom Filt Rate - Afr Amer 50 mL/min (>60); Estimated Creatinine Clearance 53.79 ml/min; Glucose 81 mg/dL (74-106); Potassium 4.5 mmol/L (3.5-5.1); Sodium Level 140 mmol/L (136-145)
[2020-11-28 06:28] LABS: Lymphocyte 12 % (19-41); Metamyelocyte 1 % (0-1); Monocyte 7 % (0-10); Neutrophil-Band 6 % (0-5); Neutrophil-Segmented 74 % (47-70); Total Cells Counted 100 (MANUAL DIFF)
[2020-11-28 06:29] LABS: Absolute Neutrophil Count 8.1 X10^3/uL (2.0-7.7); Platelet Estimate ADEQUATE (ADEQ); Red Cell Morphology NORM C+C NORMAL (NORM C&C)
[2020-11-28] MEDS: Acarbose 50 MG Tablet 25 MG PO ×3 (08:16→18:09)
[2020-11-28] MEDS: Gabapentin 100 MG Capsule PO ×2 (08:17→18:11)
[2020-11-28 10:00] VITALS: PULSE 73; RESP 18; O2SAT 97
--- NOTE | 2020-11-28 10:32 | CASEMGMT ---
Social Work IDT met with patient and via conference call for care plan meeting. Discussed patient's progress in therapy. Pt is SBA for bed mobility, min-CGA for sit to stands and SPT with FWW. PT is very weak, needs to improve on strength and activity tolerance. Pt is min for UE ADLS, dependent for LE ADLs, CGA x2 for toilet SPT, dependent x2 for clothing/pericare. OT to trial AE. Pt is on a minced and moist textures, thin liquids. Pt to follow GERD precautions during and after meals. ST working on diet analysis and compensatory strategies training. Pt is on a carb controlled, PARMJIT, caffeine free diet. Intake is good and DC'd Glucerna. Pt is out of isolation 1/, increase to O2, has wounds, IV ATB, IV fluids and new cath. Explained Medicare benefit. The goal is for pt to return home with with 3 steps to enter. Will continue to follow. Tiara Woodson, LILLI SUPERVISOR [employer]
[2020-11-28 10:55] LABS: Bedside Glucose 98 mg/dL (70-110)
--- NOTE | 2020-11-28 11:36 | CHAPLAIN ---
Type of Pastoral Visit _x__ Initial Visit ___ Follow-up Visit ___ On-call Visit ___ General Patient Visit ___ Spiritual Assessment ___ Family Conference ___ Bereavement ___ Rapid Response ___ Code Blue ___ Other (describe below) Pastoral Care Referral From _x__ Patient ___ Family ___ Nurse ___ Physician ___ Crm Campaign Manager ___ Livestock Yard Attendant ___ Other (describe below) Sacrament/Intervention _x__ Active listening ___ Anointing ___ Anglican ___ Bereavement ___ Communion _x__ Calista exploration ___ _x__ Life review _x__ Prayer ___ Reconciliation ___ Sacrament of Sick _x__ Supportive presence ___ Wedding ___ Other (describe below) Pastoral Comments patient open to talking about life and her current health condition; pt goal is to get back home after regaining strength and mobility; pt is open to spiritual care and does not have a current calista preference or connection; prayer is welcomed; future visits are welcomed
[2020-11-28 11:48] LABS: Pathologist Review Reviewed
[2020-11-28] MEDS: Tuberculin,Purif.prot.deriv. 50 TU/ML Vial 5 ML ID (12:32)
[2020-11-28] MEDS: oxyCODONE 5 MG Tablet PO (12:35)
[2020-11-28 14:04] VITALS: BP 129/51; PULSE 77; RESP 20; TEMP 36.7; O2SAT 97
[2020-11-28 16:41] LABS: Bedside Glucose 100 mg/dL (70-110)
[2020-11-28] MEDS: proMETHazine 25 MG Tablet 12.5 MG PO (19:54)
[2020-11-28 20:05] LABS: Bedside Glucose 94 mg/dL (70-110)
--- NOTE | 2020-11-28 20:24 | NURSING ---
c/o nausea and 500cc emesis. bs 94. Dr. Enriquez notified. OK to hold [employer]. order taken for xray of abd and UA via straight cath.
--- NOTE | 2020-11-28 20:55 | RAD_ITS ---
STUDY: X-RAY - ABDOMEN/PELVIS REASON FOR EXAM: Female, 69 years old. nausea and vomiting. TECHNIQUE: Single AP view of the abdomen / pelvis. COMPARISON: None. FINDINGS: Normal visualized lung bases. There is moderate fecal retention, otherwise unremarkable bowel gas pattern. There is no demonstrated free abdominal air. The visualized liver, spleen and kidneys are grossly normal in size and morphology. Normal soft tissue structures. There are diffuse degenerative changes of the visualized lumbar spine. There has been surgical fixation of the lower lumbar spine. There is mild levoconvex scoliosis. RAD/Abdomen Single View (Portable) IMPRESSION: Fecal retention, no gross obstruction. Electronically Signed: Dustin Mcqueen MD at 21:22 EST , Service support ,
[2020-11-28] MEDS: Montelukast 10 MG Tablet PO (21:18)
[2020-11-28] MEDS: Gabapentin 300 MG Capsule PO (21:18)
[2020-11-28] MEDS: 0.9% Normal Saline 1,000 ML 40 ML IV (21:51)
[2020-11-28] MEDS: Magnesium Citrate 300 ML PO (21:52)
[2020-11-28 22:11] VITALS: PULSE 88; RESP 18; O2SAT 98
[2020-11-28 22:46] LABS: Bacteria 0 SEEN /hpf (None Seen); Mucous, Urine 0 SEEN /hpf (<or=2+); Red Blood Cells-Urine 0 SEEN /hpf (0-5); Squamous Epithelial Cells - UA 0 SEEN /hpf (5-10); White Blood Cells 0 SEEN /hpf (0-5)
[2020-11-28 22:48] LABS: Color, Urine Yellow (Yellow); Glucose, Dipstick Normal (Normal); Ketone-Dipstick Negative (Negative); Leukocyte Esterase-Dipstick Negative /ul (Negative); Nitrite-Dipstick Negative (Negative); Occult Blood-Urine Negative /ul (Negative); Protein-Dipstick Negative (Negative); Urine Bilirubin Dipstick Negative (Negative); Urine Clarity Clear (Clear); Urine Urobilinogen Normal (Normal)
--- NOTE | 2020-11-29 01:02 | NURSING ---
soap suds enema given per order. Pt had Xlarge BM
[2020-11-29] MEDS: Enoxaparin 30 MG/0.3 ML Syringe SC (05:49)
[2020-11-29] MEDS: Acetaminophen 500 MG Tablet 1000 MG PO ×3 (05:50→21:55)
[2020-11-29] MEDS: Pantoprazole Sodium 40 MG Tablet PO (05:50)
[2020-11-29] MEDS: Fenofibrate 145 MG Tablet PO (05:50)
[2020-11-29] MEDS: amLODIPine 5 MG Tablet PO (05:50)
[2020-11-29] MEDS: Cyanocobalamin 500 MCG Tablet 1000 MCG PO (05:50)
[2020-11-29] MEDS: Febuxostat 40 MG TABLET PO (05:50)
[2020-11-29] MEDS: Senna/Docusate Sodium 1 Tablet 2 TABLET PO ×2 (05:51→17:29)
[2020-11-29] MEDS: Polyethylene Glycol 3350 17 GM PACKET PO ×2 (05:51→17:29)
[2020-11-29] MEDS: LINAGLIPTIN 5 MG TABLET PO (05:53)
[2020-11-29] MEDS: Nystatin Powder 15gm Bottle 1 APPLIC TOPICAL ×2 (05:54→21:47)
[2020-11-29] MEDS: Lidocaine 5% Patch 2 PATCH TOPICAL (05:54)
[2020-11-29] MEDS: Menthol/Lanolin/Calamine/Znox 113 GM Tube 1 APPLIC TOPICAL ×2 (05:55→21:47)
[2020-11-29 06:00] VITALS: BP 144/58; PULSE 78; RESP 18; TEMP 36.7; O2SAT 93
[2020-11-29] MEDS: traMADol 50 MG Tablet PO ×2 (06:01→21:55)
[2020-11-29] MEDS: Ipratropium Bromide 0.06% NASAL SPRAY 2 SPRAY NASAL ×3 (06:05→21:46)
[2020-11-29] MEDS: Umeclidinium Bromide Inhaler 1 PUFF IH (06:06)
[2020-11-29] MEDS: Fluticasone/Salmeterol 232-14 Inhaler 1 PUFF IH ×2 (06:06→17:32)
[2020-11-29 06:30] LABS: Bedside Glucose 97 mg/dL (70-110)
[2020-11-29 07:17] VITALS: O2SAT 97
[2020-11-29] MEDS: Acarbose 50 MG Tablet 25 MG PO ×3 (08:37→17:29)
[2020-11-29] MEDS: Gabapentin 100 MG Capsule PO ×2 (08:37→17:29)
[2020-11-29 11:16] LABS: Bedside Glucose 123 mg/dL (70-110)
[2020-11-29 15:01] VITALS: BP 132/64; PULSE 76; RESP 16; TEMP 36.7; O2SAT 98
[2020-11-29 16:16] LABS: Bedside Glucose 131 mg/dL (70-110)
[2020-11-29 19:43] VITALS: PULSE 71; RESP 18; O2SAT 94
[2020-11-29] MEDS: Gabapentin 300 MG Capsule PO (20:04)
[2020-11-29 21:30] VITALS: PULSE 71; RESP 18
[2020-11-29] MEDS: Albuterol 2.5 MG/3 ML VIAL.NEB. INHALATION (21:30)
[2020-11-29 21:31] LABS: Bedside Glucose 144 mg/dL (70-110)
[2020-11-29] MEDS: Montelukast 10 MG Tablet PO (21:50)
[2020-11-30] MEDS: Acetaminophen 500 MG Tablet 1000 MG PO ×2 (05:21→14:56)
[2020-11-30] MEDS: Enoxaparin 30 MG/0.3 ML Syringe SC (05:21)
[2020-11-30] MEDS: Senna/Docusate Sodium 1 Tablet 2 TABLET PO ×2 (05:22→18:01)
[2020-11-30] MEDS: Fenofibrate 145 MG Tablet PO (05:22)
[2020-11-30] MEDS: Febuxostat 40 MG TABLET PO (05:22)
[2020-11-30] MEDS: LINAGLIPTIN 5 MG TABLET PO (05:22)
[2020-11-30] MEDS: Ipratropium Bromide 0.06% NASAL SPRAY 2 SPRAY NASAL ×3 (05:22→22:31)
[2020-11-30] MEDS: Lidocaine 5% Patch 2 PATCH TOPICAL (05:23)
[2020-11-30] MEDS: Umeclidinium Bromide Inhaler 1 PUFF IH (05:23)
[2020-11-30] MEDS: Fluticasone/Salmeterol 232-14 Inhaler 1 PUFF IH ×2 (05:23→18:02)
[2020-11-30] MEDS: Menthol/Lanolin/Calamine/Znox 113 GM Tube 1 APPLIC TOPICAL ×2 (05:23→22:33)
[2020-11-30] MEDS: Nystatin Powder 15gm Bottle 1 APPLIC TOPICAL ×2 (05:24→22:33)
[2020-11-30] MEDS: Polyethylene Glycol 3350 17 GM PACKET PO ×2 (05:24→18:02)
[2020-11-30] MEDS: Pantoprazole Sodium 40 MG Tablet PO (05:25)
[2020-11-30] MEDS: amLODIPine 5 MG Tablet PO (05:25)
[2020-11-30] MEDS: Cyanocobalamin 500 MCG Tablet 1000 MCG PO (05:26)
[2020-11-30 05:33] VITALS: BP 138/69; PULSE 73; RESP 18; TEMP 36.8; O2SAT 97
[2020-11-30 06:11] LABS: Bedside Glucose 118 mg/dL (70-110)
[2020-11-30] MEDS: Acarbose 50 MG Tablet 25 MG PO ×3 (08:07→18:01)
[2020-11-30] MEDS: Gabapentin 100 MG Capsule PO ×2 (08:07→18:01)
[2020-11-30] MEDS: oxyCODONE 5 MG Tablet PO (08:09)
[2020-11-30 10:56] LABS: Bedside Glucose 124 mg/dL (70-110)
[2020-11-30 12:18] VITALS: PULSE 84; RESP 18; O2SAT 94
[2020-11-30 13:36] VITALS: BP 118/56; PULSE 73; RESP 16; TEMP 36.2; O2SAT 94
[2020-11-30 16:26] LABS: Bedside Glucose 125 mg/dL (70-110)
--- NOTE | 2020-11-30 18:28 | NURSING ---
Pt c/o of gas pain on her right side. Was upset that she couldn't take her trulance stated that we did not have a order here for trulance and we do not carry it in the pharmacy. Dr Enriquez was made aware of this when she first came and did not order the trulance d/t pharmacy not carrying it. Let her know that she is taking senna and Miralax to help with Bowel movements. Pt had a bowel movement yesterday. Got pt up and walked to bathroom she was able to relieve the gas and stated she felt better. Will continue to monitor.
[2020-11-30 21:30] LABS: Bedside Glucose 157 mg/dL (70-110)
[2020-11-30] MEDS: Gabapentin 300 MG Capsule PO (22:30)
[2020-11-30] MEDS: Montelukast 10 MG Tablet PO (22:32)
[2020-12-01] MEDS: diazePAM 2 MG Tablet PO (00:36)
[2020-12-01 05:59] VITALS: BP 133/47; PULSE 75; RESP 14; TEMP 36.3; O2SAT 93
[2020-12-01] MEDS: Lidocaine 5% Patch 2 PATCH TOPICAL (06:00)
[2020-12-01] MEDS: Ipratropium Bromide 0.06% NASAL SPRAY 2 SPRAY NASAL ×3 (06:02→21:35)
[2020-12-01] MEDS: Nystatin Powder 15gm Bottle 1 APPLIC TOPICAL ×2 (06:03→21:35)
[2020-12-01] MEDS: Menthol/Lanolin/Calamine/Znox 113 GM Tube 1 APPLIC TOPICAL ×2 (06:03→21:36)
[2020-12-01] MEDS: Fluticasone/Salmeterol 232-14 Inhaler 1 PUFF IH ×2 (06:03→17:46)
[2020-12-01] MEDS: Polyethylene Glycol 3350 17 GM PACKET PO (06:04)
[2020-12-01] MEDS: Enoxaparin 30 MG/0.3 ML Syringe SC (06:05)
[2020-12-01] MEDS: Cyanocobalamin 500 MCG Tablet 1000 MCG PO (06:07)
[2020-12-01] MEDS: Febuxostat 40 MG TABLET PO (06:08)
[2020-12-01] MEDS: Senna/Docusate Sodium 1 Tablet 2 TABLET PO (06:08)
[2020-12-01] MEDS: amLODIPine 5 MG Tablet PO (06:08)
[2020-12-01] MEDS: Fenofibrate 145 MG Tablet PO (06:08)
[2020-12-01] MEDS: LINAGLIPTIN 5 MG TABLET PO (06:08)
[2020-12-01] MEDS: Pantoprazole Sodium 40 MG Tablet PO (06:08)
[2020-12-01] MEDS: Acetaminophen 500 MG Tablet 1000 MG PO ×3 (06:08→21:31)
[2020-12-01 06:36] LABS: Bedside Glucose 105 mg/dL (70-110)
[2020-12-01] MEDS: Umeclidinium Bromide Inhaler 1 PUFF IH (06:59)
[2020-12-01 07:45] VITALS: O2SAT 97
[2020-12-01] MEDS: Gabapentin 100 MG Capsule PO ×2 (08:33→17:47)
[2020-12-01] MEDS: Acarbose 50 MG Tablet 25 MG PO ×3 (08:33→17:47)
[2020-12-01 10:56] LABS: Bedside Glucose 107 mg/dL (70-110)
[2020-12-01 13:46] VITALS: BP 120/52; PULSE 83; RESP 18; TEMP 36.1; O2SAT 97
--- NOTE | 2020-12-01 14:46 | NURSING ---
pt declined an update be given to , states she talks to him everyday.
[2020-12-01 15:45] VITALS: PULSE 80; RESP 16
[2020-12-01] MEDS: Albuterol 2.5 MG/3 ML VIAL.NEB. INHALATION (15:45)
[2020-12-01] MEDS: oxyCODONE 5 MG Tablet PO (16:35)
[2020-12-01 16:50] LABS: Bedside Glucose 153 mg/dL (70-110)
[2020-12-01] MEDS: Insulin Lispro 100 UNIT/ML INSULN.PEN SC (17:47)
[2020-12-01 21:10] LABS: Bedside Glucose 147 mg/dL (70-110)
[2020-12-01] MEDS: Gabapentin 300 MG Capsule PO (21:31)
[2020-12-01] MEDS: Montelukast 10 MG Tablet PO (21:36)
[2020-12-02 04:00] VITALS: BP 134/55; PULSE 78; RESP 18; TEMP 36.6; O2SAT 93
[2020-12-02] MEDS: Enoxaparin 30 MG/0.3 ML Syringe SC (06:13)
[2020-12-02] MEDS: Acetaminophen 500 MG Tablet 1000 MG PO ×2 (06:13→21:43)
[2020-12-02] MEDS: amLODIPine 5 MG Tablet PO (06:13)
[2020-12-02] MEDS: Cyanocobalamin 500 MCG Tablet 1000 MCG PO (06:13)
[2020-12-02] MEDS: Febuxostat 40 MG TABLET PO (06:14)
[2020-12-02] MEDS: Fenofibrate 145 MG Tablet PO (06:14)
[2020-12-02] MEDS: LINAGLIPTIN 5 MG TABLET PO (06:14)
[2020-12-02] MEDS: Pantoprazole Sodium 40 MG Tablet PO (06:14)
[2020-12-02] MEDS: Menthol/Lanolin/Calamine/Znox 113 GM Tube 1 APPLIC TOPICAL ×2 (06:14→21:49)
[2020-12-02] MEDS: Umeclidinium Bromide Inhaler 1 PUFF IH (06:15)
[2020-12-02 06:16] LABS: Bedside Glucose 85 mg/dL (70-110)
[2020-12-02] MEDS: Ipratropium Bromide 0.06% NASAL SPRAY 2 SPRAY NASAL ×2 (06:16→21:43)
[2020-12-02] MEDS: Fluticasone/Salmeterol 232-14 Inhaler 1 PUFF IH ×2 (06:16→18:14)
[2020-12-02] MEDS: Nystatin Powder 15gm Bottle 1 APPLIC TOPICAL ×2 (06:16→21:49)
[2020-12-02] MEDS: Lidocaine 5% Patch 2 PATCH TOPICAL (06:16)
[2020-12-02 07:25] VITALS: O2SAT 96
[2020-12-02] MEDS: oxyCODONE 5 MG Tablet PO (07:48)
[2020-12-02] MEDS: Gabapentin 100 MG Capsule PO ×2 (07:49→18:14)
[2020-12-02] MEDS: Acarbose 50 MG Tablet 25 MG PO ×3 (07:49→18:15)
[2020-12-02] MEDS: proMETHazine 25 MG Tablet 12.5 MG PO (09:48)
[2020-12-02 09:51] LABS: Bedside Glucose 110 mg/dL (70-110)
--- NOTE | 2020-12-02 09:55 | NURSING ---
Addendum entered by Kassandra Diego 12/02/20 10:28: pt denies nausea, getting tired, requesting to get into bed, pt assisted to bed, resting on her LT side. call light in reach. Original Note: PT CALLED OUT SAYING SHE FELT DIZZY AND NAUSEATED. THIS NURSE FOUND PT CLAMMY. BLOOD SUGAR 110,VITALS DONE.PRN PHENERGAN GIVEN. RN AWARE.
[2020-12-02 09:57] VITALS: BP 133/62; PULSE 71; RESP 18; TEMP 36.3; O2SAT 97
[2020-12-02 10:23] VITALS: PULSE 79; RESP 18; O2SAT 96
[2020-12-02 10:56] LABS: Bedside Glucose 138 mg/dL (70-110)
[2020-12-02 13:58] VITALS: BP 135/59; PULSE 76; RESP 16; TEMP 36.4; O2SAT 98
[2020-12-02 16:41] LABS: Bedside Glucose 134 mg/dL (70-110)
[2020-12-02] MEDS: Senna/Docusate Sodium 1 Tablet 2 TABLET PO (18:14)
[2020-12-02] MEDS: Montelukast 10 MG Tablet PO (21:43)
[2020-12-02] MEDS: Gabapentin 300 MG Capsule PO (21:43)
[2020-12-02 21:56] LABS: Bedside Glucose 154 mg/dL (70-110)
[2020-12-03 04:00] VITALS: BP 146/69; PULSE 84; RESP 18; TEMP 36.6; O2SAT 94
[2020-12-03] MEDS: Lidocaine 5% Patch 2 PATCH TOPICAL (06:09)
[2020-12-03] MEDS: Umeclidinium Bromide Inhaler 1 PUFF IH (06:09)
[2020-12-03] MEDS: Fluticasone/Salmeterol 232-14 Inhaler 1 PUFF IH ×2 (06:09→17:40)
[2020-12-03 06:10] LABS: Bedside Glucose 110 mg/dL (70-110)
[2020-12-03] MEDS: Cyanocobalamin 500 MCG Tablet 1000 MCG PO (06:10)
[2020-12-03] MEDS: Fenofibrate 145 MG Tablet PO (06:10)
[2020-12-03] MEDS: LINAGLIPTIN 5 MG TABLET PO (06:10)
[2020-12-03] MEDS: Enoxaparin 30 MG/0.3 ML Syringe SC (06:10)
[2020-12-03] MEDS: Febuxostat 40 MG TABLET PO (06:10)
[2020-12-03] MEDS: amLODIPine 5 MG Tablet PO (06:10)
[2020-12-03] MEDS: Acetaminophen 500 MG Tablet 1000 MG PO ×2 (06:10→21:18)
[2020-12-03] MEDS: Pantoprazole Sodium 40 MG Tablet PO (06:11)
[2020-12-03] MEDS: Ipratropium Bromide 0.06% NASAL SPRAY 2 SPRAY NASAL ×2 (06:11→21:20)
[2020-12-03] MEDS: Alendronate Sodium 70 MG Tablet PO (06:12)
[2020-12-03] MEDS: Nystatin Powder 15gm Bottle 1 APPLIC TOPICAL ×2 (06:14→21:19)
[2020-12-03] MEDS: Menthol/Lanolin/Calamine/Znox 113 GM Tube 1 APPLIC TOPICAL ×2 (06:15→21:19)
[2020-12-03] MEDS: Polyethylene Glycol 3350 17 GM PACKET PO (06:19)
[2020-12-03 06:57] VITALS: PULSE 79; RESP 16; O2SAT 96
[2020-12-03] MEDS: Albuterol 2.5 MG/3 ML VIAL.NEB. INHALATION (06:57)
[2020-12-03] MEDS: traMADol 50 MG Tablet PO ×2 (08:06→17:37)
[2020-12-03] MEDS: Acarbose 50 MG Tablet 25 MG PO ×3 (08:07→17:38)
[2020-12-03] MEDS: Gabapentin 100 MG Capsule PO ×2 (08:07→17:38)
[2020-12-03 10:51] LABS: Bedside Glucose 136 mg/dL (70-110)
--- NOTE | 2020-12-03 14:09 | MDS.RN ---
Information for the mds was obtained from review of the clinical record, interview of resident, staff, and direct observation of resident's care.
[2020-12-03 14:27] VITALS: BP 125/51; PULSE 73; RESP 18; TEMP 36.1; O2SAT 93
[2020-12-03 16:30] LABS: Bedside Glucose 121 mg/dL (70-110)
[2020-12-03 21:11] LABS: Bedside Glucose 169 mg/dL (70-110)
[2020-12-03] MEDS: Gabapentin 300 MG Capsule PO (21:18)
[2020-12-03] MEDS: Montelukast 10 MG Tablet PO (21:19)
[2020-12-04] MEDS: Lidocaine 5% Patch 2 PATCH TOPICAL (05:46)
[2020-12-04 05:50] VITALS: BP 138/48; PULSE 77; RESP 18; TEMP 36.2; O2SAT 96
[2020-12-04] MEDS: Fluticasone/Salmeterol 232-14 Inhaler 1 PUFF IH ×2 (05:51→17:38)
[2020-12-04] MEDS: Umeclidinium Bromide Inhaler 1 PUFF IH (05:51)
[2020-12-04] MEDS: Polyethylene Glycol 3350 17 GM PACKET PO ×2 (05:53→17:40)
[2020-12-04] MEDS: Ipratropium Bromide 0.06% NASAL SPRAY 2 SPRAY NASAL ×3 (05:53→20:51)
[2020-12-04] MEDS: Nystatin Powder 15gm Bottle 1 APPLIC TOPICAL ×2 (05:53→20:56)
[2020-12-04] MEDS: Menthol/Lanolin/Calamine/Znox 113 GM Tube 1 APPLIC TOPICAL ×2 (05:53→20:56)
[2020-12-04] MEDS: Enoxaparin 30 MG/0.3 ML Syringe SC (05:54)
[2020-12-04] MEDS: Acetaminophen 500 MG Tablet 1000 MG PO ×2 (05:54→20:52)
[2020-12-04] MEDS: Cyanocobalamin 500 MCG Tablet 1000 MCG PO (05:54)
[2020-12-04] MEDS: amLODIPine 5 MG Tablet PO (05:55)
[2020-12-04] MEDS: Pantoprazole Sodium 40 MG Tablet PO (05:55)
[2020-12-04] MEDS: Fenofibrate 145 MG Tablet PO (05:56)
[2020-12-04] MEDS: Febuxostat 40 MG TABLET PO (06:01)
[2020-12-04 06:15] LABS: Bedside Glucose 90 mg/dL (70-110)
[2020-12-04] MEDS: LINAGLIPTIN 5 MG TABLET PO (08:21)
[2020-12-04] MEDS: Acarbose 50 MG Tablet 25 MG PO ×3 (08:21→17:38)
[2020-12-04] MEDS: Gabapentin 100 MG Capsule PO ×2 (08:22→17:37)
[2020-12-04] MEDS: traMADol 50 MG Tablet PO ×2 (08:24→17:44)
[2020-12-04 08:40] VITALS: PULSE 80; RESP 18; O2SAT 92
[2020-12-04 11:06] LABS: Bedside Glucose 116 mg/dL (70-110)
[2020-12-04 14:46] VITALS: BP 133/61; PULSE 76; RESP 16; TEMP 36.3; O2SAT 99
[2020-12-04 16:51] LABS: Bedside Glucose 137 mg/dL (70-110)
[2020-12-04] MEDS: Senna/Docusate Sodium 1 Tablet 2 TABLET PO (17:40)
[2020-12-04] MEDS: Gabapentin 300 MG Capsule PO (20:53)
[2020-12-04] MEDS: Montelukast 10 MG Tablet PO (20:53)
[2020-12-04 21:21] LABS: Bedside Glucose 138 mg/dL (70-110)
[2020-12-05 05:14] LABS: Absolute Lymphocyte Count 0.98 X10^3/uL (0.83-4.51); Absolute Neutrophil Count 5.5 X10^3/uL (2.0-7.7); Basophil# 0.06 X10^3/uL; Basophil% 0.8 % (0-1); Eosinophil# 0.21 X10^3/uL; Eosinophils% 2.6 % (0-5); Hematocrit 34.2 % (37-47); Hemoglobin 10.5 g/dL (12.0-15.0); Lymphocyte # 0.98 X10^3/ul (4.0); Lymphocyte % 12.3 % (19-41); Mean Corp Hgb Conc 30.7 g/dL (32-36); Mean Corpuscular Hgb 27.9 pg (27.0-32.0); Mean Corpuscular Volume 90.7 fL (81-99); Mean Platelet Vol. 9.3 fl (6.2-12.0); Monocyte# 0.98 X10^3/uL; Monocyte% 12.3 % (0-10); NRBC Flagged by Analyzer 0 % (0-5); Neutrophil # 5.47 X10^3/uL (2.7-7.7); Platelet Count 258 K/mm3 (150-450); RBC Distribution Width CV 15.4 % (11.6-14.6); RBC Distribution Width SD 51.2 fl (35.1-43.9); Red Blood Count 3.77 M/mm3 (4.2-5.4); White Blood Count 7.9 K/mm3 (4.4-11.0)
[2020-12-05 05:36] LABS: Anion Gap 6 (5-15); BUN 24 mg/dL (7-18); BUN/Creat Ratio 19.8 RATIO (10-20); Calcium,Total 9.2 mg/dL (8.5-10.1); Chloride 107 mmol/L (98-107); Creatinine, Serum 1.21 mg/dL (0.55-1.02); EST Glomerular Filtration Rate 47 mL/min (>60); Est Glom Filt Rate - Afr Amer 57 mL/min (>60); Estimated Creatinine Clearance 58.74 ml/min; Glucose 98 mg/dL (74-106); Potassium 3.9 mmol/L (3.5-5.1); Sodium Level 142 mmol/L (136-145)
[2020-12-05 06:30] LABS: Bedside Glucose 106 mg/dL (70-110)
[2020-12-05 06:52] VITALS: O2SAT 91
[2020-12-05] MEDS: amLODIPine 5 MG Tablet PO (07:56)
[2020-12-05] MEDS: Senna/Docusate Sodium 1 Tablet 2 TABLET PO ×2 (07:56→16:16)
[2020-12-05] MEDS: Febuxostat 40 MG TABLET PO (07:56)
[2020-12-05] MEDS: Pantoprazole Sodium 40 MG Tablet PO (07:56)
[2020-12-05] MEDS: LINAGLIPTIN 5 MG TABLET PO (07:56)
[2020-12-05] MEDS: Enoxaparin 30 MG/0.3 ML Syringe SC (07:57)
[2020-12-05] MEDS: Cyanocobalamin 500 MCG Tablet 1000 MCG PO (07:57)
[2020-12-05] MEDS: Fluticasone/Salmeterol 232-14 Inhaler 1 PUFF IH ×2 (07:57→08:06)
[2020-12-05] MEDS: Fenofibrate 145 MG Tablet PO (07:57)
[2020-12-05] MEDS: traMADol 50 MG Tablet PO ×2 (08:03→22:11)
[2020-12-05] MEDS: Umeclidinium Bromide Inhaler 1 PUFF IH (08:04)
[2020-12-05] MEDS: Polyethylene Glycol 3350 17 GM PACKET PO ×2 (08:05→16:16)
[2020-12-05] MEDS: Nystatin Powder 15gm Bottle 1 APPLIC TOPICAL ×2 (08:07→22:08)
[2020-12-05] MEDS: Lidocaine 5% Patch 2 PATCH TOPICAL (08:07)
[2020-12-05] MEDS: Menthol/Lanolin/Calamine/Znox 113 GM Tube 1 APPLIC TOPICAL ×2 (08:08→22:09)
[2020-12-05] MEDS: Ipratropium Bromide 0.06% NASAL SPRAY 2 SPRAY NASAL ×3 (08:12→22:08)
[2020-12-05] MEDS: Gabapentin 100 MG Capsule PO ×2 (08:44→16:16)
[2020-12-05] MEDS: Acarbose 50 MG Tablet 25 MG PO ×3 (08:44→16:33)
--- NOTE | 2020-12-05 09:03 | NURSING ---
MORELOS DC P/ORDER. PT TOLERATED WELL
[2020-12-05 11:16] LABS: Bedside Glucose 94 mg/dL (70-110)
[2020-12-05] MEDS: Acetaminophen 500 MG Tablet 1000 MG PO (14:11)
--- NOTE | 2020-12-05 15:10 | CASEMGMT ---
Social Work Spoke with pt about request to DC . IDT agreeable to DC 12/08. Pt requesting aquatic therapy PT/OT at [facility]. can transport. Pt requesting hospital bed. Referrals made to [facility] and [facility] [place]. Pt remains on 3L O2, same at home. Discussed Palliative Care. Pt agreeable. Referral made. Plan: DC home with 12/08 with Aquatic Therapy PT/OT at [facility], [facility] [place] - hosp. bed Tiara Woodson, TEAM PHYSICIAN BIOINFORMATICS SPECIALIST
[2020-12-05] MEDS: oxyCODONE 5 MG Tablet PO (15:16)
[2020-12-05 15:51] VITALS: BP 150/65; PULSE 90; RESP 24; TEMP 37; O2SAT 92
[2020-12-05 16:45] LABS: Bedside Glucose 155 mg/dL (70-110)
[2020-12-05] MEDS: Insulin Lispro 100 UNIT/ML INSULN.PEN SC (18:05)
--- NOTE | 2020-12-05 20:03 | PCM.DC ---
- Discharge Diagnoses Current Active Problems: Current Active and Chronic Problems (Last Updated 11/19/20 @ 21:[address] Anahi Gutierrez MD) Debility (Acute) Intractable low back pain (Acute) Compression fracture of L1 vertebra (Chronic) Osteoporosis (Chronic) Hypertension (Chronic) Atrial fibrillation (Chronic) Chronic kidney disease (Chronic) Allergic rhinitis (Chronic) Gout (Chronic) Overactive bladder (Chronic) Constipation (Chronic) Muscle spasm (Chronic) Obstructive sleep apnea (Chronic) GERD (gastroesophageal reflux disease) (Chronic) Diabetes (Chronic) Hyperlipidemia (Chronic) Asthma (Chronic) You will use the following diet at home:: No restrictions, Regular Your food should be the consistency of: Regular Your liquids should be the consistency of: Regular/Thin Discharge Activity: Return to Normal Activity, May Shower, Use Walker Weight Bearing Status: Weight bearing as tolerated Call your doctor if you observe: Fever of 101 or Higher, Inability to urinate, Inability to have a bowel movement, Shortness of breath, Chest pain, Uncontrolled pain Allergies/Adverse Reactions: Allergies clindamycin Allergy (Verified 11/19/20 16:55) Rash insulin detemir [From Levemir U-100 Insulin] Allergy (Verified 11/19/20 16:55) Rash ciprofloxacin Adverse Reaction (Mild, Verified 11/19/20 16:55) Upset Stomach amoxicillin trihydrate [From Augmentin] Adverse Reaction (Verified 11/19/20 16:55) Nausea also yeast infection morphine Adverse Reaction (Verified 11/19/20 16:55) Nausea potassium clavulanate [From Augmentin] Adverse Reaction (Verified 11/19/20 16:55) Nausea Medications to take at Discharge Alendronate Sodium [Fosamax] 70 mg PO MO 06/21/17 Fluticasone 0.05% [Flonase Nasal [place]] 2 spray NASAL DAILY PRN PRN 06/21/17 Febuxostat [Uloric] 40 mg PO DAILY 12/30/18 Cholecalciferol (VIT D3) [Vitamin D3] 1,000 unit PO DAILY 04/16/20 Cyanocobalamin (Vitamin B-12) [Vitamin B-12] 1,000 mcg PO DAILY PRN PRN 06/01/20 fenofibric acid (choline) 135 mg capsule,delayed release 135 mg PO DAILY 07/17/20 fluticasone 500 mcg-salmeterol 50 mcg/dose blistr powdr for inhalation 1 inh INHALATION BID 07/17/20 sitagliptin 50 mg tablet 50 mg PO DAILY 07/17/20 tiotropium bromide 1.25 mcg/actuation mist for inhalation 2 puff INHALATION DAILY 07/17/20 Cimetidine [Heartburn Relief] 200 mg PO DAILY 11/19/20 Insulin Glargine [Lantus SoloStar Pen] 45 unit SC QPM 11/19/20 Montelukast Sodium [Singulair] 10 mg PO QHS 11/19/20 Pantoprazole Sodium [Protonix] 40 mg PO DAILY 11/19/20 Amlodipine Besylate [Norvasc] 5 mg PO DAILY 11/20/20 Acetaminophen [Tylenol] 1,000 mg PO Q8 tablet 12/05/20 Gabapentin [Neurontin] 100 mg PO BIDCM #60 cap 12/05/20 Gabapentin [Neurontin] 300 mg PO 2000 #30 cap 12/05/20 Ipratropium [place] 0.06% [ATROVENT NASAL SPRAY] 2 spray NASAL TID #1 nasal.sry 12/05/20 Lidocaine [Lidoderm Patch] 2 patch TOPICAL DAILY #60 patch 12/05/20 Menthol/Lanolin/Calamine/Znox [Calmoseptine Ointment] 1 applic TOPICAL 0600,2200 tube 12/05/20 Nystatin Powder [Mycostatin Powder] 1 applic TOPICAL 0600,2200 bottle 12/05/20 Oxycodone [Oxyir] 5 mg PO Q4H PRN PRN #18 tablet 12/05/20 Polyethylene Glycol 3350 [Miralax] 17 gm PO BID #60 packet 12/05/20 Senna/Docusate Sodium [Senokot-S] 2 tab PO BID PRN PRN #120 tab 12/05/20 traMADol [Ultram] 50 mg PO Q8H PRN #9 tablet 12/05/20 The following prescriptions were given: Ipratropium [place] 0.06% [ATROVENT NASAL SPRAY] 2 spray NASAL TID #1 nasal.sry Transmission Status: Pending to [facility] #30 Lidocaine [Lidoderm Patch] 2 patch TOPICAL DAILY #60 patch Transmission Status: Pending to [facility] #30 Polyethylene Glycol 3350 [Miralax] 17 gm PO BID #60 packet Transmission Status: Pending to [facility]30 Gabapentin [Neurontin] 100 mg PO BIDCM #60 cap Transmission Status: Pending to [facility]30 Gabapentin [Neurontin] 300 mg PO 2000 #30 cap Transmission Status: Pending to [facility]30 Oxycodone [Oxyir] 5 mg PO Q4H PRN PRN #18 tablet PRN Reason: Pain Score 6-10 Transmission Status: Sent to [facility]30 Senna/Docusate Sodium [Senokot-S] 2 tab PO BID PRN PRN #120 tab PRN Reason: Constipation Transmission Status: Pending to [facility]30 traMADol [Ultram] 50 mg PO Q8H PRN #9 tablet PRN Reason: Pain Score 4-5 Transmission Status: Sent to [facility]30 Primary Care Physician: Veronica Oquendo DO [Primary Care Provider] - Please follow up with your Primary Care Physician in: 1 week. Test Results: Test results from this visit will be discussed in further detail at your follow-up appointment, if applicable. Please Follow Up With: Veronica Oquendo DO When: 1 week. Please Follow Up With: Chetan Medina MD When: 1 week. Proposed Discharge Date: 12/08/20
--- NOTE | 2020-12-05 20:05 | DS.PCM_ITS ---
Discharge Date and Diagnosis - Problem List Patient Problems: Active and Suspected Problems (Last Updated 11/19/20 @ 21:[address] Anahi Gutierrez MD) Debility (Acute) Intractable low back pain (Acute) Date of Admission: 11/20/20 Date of Discharge: 12/08/20 - Primary Discharge Diagnosis Acute Problems: Active Problems (Last Updated 11/19/20 @ 21:[address] Anahi Gutierrez MD) Debility (Acute) Intractable low back pain (Acute) - Secondary Discharge Diagnosis Chronic Problems: Chronic Problems (Last Updated 11/19/20 @ 21:[address] Anahi Gutierrez MD) Compression fracture of L1 vertebra (Chronic) Osteoporosis (Chronic) Hypertension (Chronic) Atrial fibrillation (Chronic) Chronic kidney disease (Chronic) Allergic rhinitis (Chronic) Gout (Chronic) Overactive bladder (Chronic) Constipation (Chronic) Muscle spasm (Chronic) Dysphagia (Chronic) Chronic renal failure, stage 3 (moderate) (Chronic) Pulmonary hypertension (Chronic) Obstructive sleep apnea (Chronic) Noncompliance with CPAP treatment (Chronic) quit wearing CPAP 2 years lorenzana Morbid obesity (Chronic) Diabetes mellitus type 2 in obese (Chronic) GERD (gastroesophageal reflux disease) (Chronic) Hyperuricemia (Chronic) Venous insufficiency of both lower extremities (Chronic) Diabetes (Chronic) Right bundle branch block (RBBB) (Chronic) Paroxysmal atrial fibrillation (Chronic) Essential (primary) hypertension (Chronic) Hyperlipidemia (Chronic) Asthma (Chronic) Sarcoidosis (Chronic) Hospital Course and Treatment Imaging Results: 11/21/20 12:44 Diet: Carbohydrate Controlled Food consistency:: Soft & Bite Sized Liquid Consistency:: Regular/Thin Dietary Modifications:: Consistent Carbohydrate No Added Salt Is pt able to select menu?: Yes Diet Comments: CAFFEINE FREE Clinical Impression(s) from Imaging Studies Chest X-Ray 11/20/20 21:57 IMPRESSION: Minimal patchy right lung opacities, nonspecific concerning for infection. Chest otherwise appears similar. at 2249 Reported and signed by: Haylee Moreno MD Electronically Signed: Haylee Moreno MD at 22:49 EST Tel , Service support , KUB X-Ray 11/28/20 20:55 IMPRESSION: Fecal retention, no gross obstruction. Electronically Signed: Dustin Mcqueen MD at 21:22 EST , Service support , Labs (Last 48 Hours) 12/03/20 12/04/20 12/04/20 21:00 06:03 10:56 WBC RBC Hgb Hct MCV MCH MCHC RDW Std Deviation RDW Coeff of [employer] Plt Count MPV Immature Gran % (Auto) Neut % (Auto) Lymph % (Auto) Pitt % (Auto) Eos % (Auto) Baso % (Auto) Absolute Neuts (auto) Absolute Lymphs (auto) Nucleated RBC % Sodium Potassium Chloride Carbon Dioxide Anion Gap BUN Creatinine Estim Creat Clear Calc Est GFR (MDRD) Af Amer Est GFR (MDRD) Non-Af BUN/Creatinine Ratio Glucose Calcium POC Glucose 169 H 90 116 H 12/04/20 12/04/20 12/05/20 16:43 21:15 04:20 WBC 7.9 RBC 3.77 L Hgb 10.5 L Hct 34.2 L MCV 90.7 MCH 27.9 MCHC 30.7 L RDW Std Deviation 51.2 H RDW Coeff of Jazzmine 15.4 H Plt Count 258 MPV 9.3 Immature Gran % (Auto) 3.000 H Neut % (Auto) 69.0 Lymph % (Auto) 12.3 L Pitt % (Auto) 12.3 H Eos % (Auto) 2.6 Baso % (Auto) 0.8 Absolute Neuts (auto) 5.5 Absolute Lymphs (auto) 0.98 Nucleated RBC % 0 Sodium Potassium Chloride Carbon Dioxide Anion Gap BUN Creatinine Estim Creat Clear Calc Est GFR (MDRD) Af Amer Est GFR (MDRD) Non-Af BUN/Creatinine Ratio Glucose Calcium POC Glucose 137 H 138 H 12/05/20 12/05/20 12/05/20 04:20 06:15 11:03 WBC RBC Hgb Hct MCV MCH MCHC RDW Std Deviation RDW Coeff of [employer] Plt Count MPV Immature Gran % (Auto) Neut % (Auto) Lymph % (Auto) Pitt % (Auto) Eos % (Auto) Baso % (Auto) Absolute Neuts (auto) Absolute Lymphs (auto) Nucleated RBC % Sodium 142 Potassium 3.9 Chloride 107 Carbon Dioxide 29.0 Anion Gap 6 BUN 24 H Creatinine 1.21 H Estim Creat Clear Calc 58.74 Est GFR (MDRD) Af Amer 57 L Est GFR (MDRD) Non-Af 47 L BUN/Creatinine Ratio 19.8 Glucose 98 Calcium 9.2 POC Glucose 106 94 12/05/20 16:35 WBC RBC Hgb Hct MCV MCH MCHC RDW Std Deviation RDW Coeff of Jazzmine Plt Count MPV Immature Gran % (Auto) Neut % (Auto) Lymph % (Auto) Pitt % (Auto) Eos % (Auto) Baso % (Auto) Absolute Neuts (auto) Absolute Lymphs (auto) Nucleated RBC % Sodium Potassium Chloride Carbon Dioxide Anion Gap BUN Creatinine Estim Creat Clear Calc Est GFR (MDRD) Af Amer Est GFR (MDRD) Non-Af BUN/Creatinine Ratio Glucose Calcium POC Glucose 155 H Operations: None Procedures: None Summary of Care Provided: The patient is a 70 year old Female with below past medical history hospitalized for intractable low back pain secondary to acute L1 corner fracture, admitted to TCU with debility, here for rehabilitation, strengthening, prior to discharge home with . Discharge home with , Aquatic therapy, PT/OT at [facility] Bed. Patient Problems: Active and Suspected Problems (Last Updated 11/19/20 @ 21:[address] Anahi Gutierrez MD) Debility (Acute) Intractable low back pain (Acute) - Physical Exam Vitals/I&O's: Vital Signs Temp Pulse Resp BP Pulse Ox 98.6 F 90 24 H 150/65 H 92 12/05/20 15:51 12/05/20 15:51 12/05/20 15:51 12/05/20 15:51 12/05/20 15:51 Oxygen Flow Rate (L/min) 2 Oxygen Delivery Method Room Air Weight: 86.296 kg Body Mass Index (BMI) 38.5 Intake and Output for Last 24 Hours 12/03/20 12/04/20 12/05/20 23:59 23:59 23:59 Intake Total 1080 / 1080 1320 / 1320 840 / 840 Output Total 1300 / 1300 2525 / 2525 1550 / 1550 Balance -220 / -220 -1205 / -1205 -710 / -710 Microbiology Past 72 Hours 12/03/20 11:35 Nasal Secretion SARS-CoV-2 Antigen (Rapid) - Final Laboratory Results 12/04/20 21:15: POC Glucose 138 H 12/05/20 04:20: WBC 7.9, RBC 3.77 L, Hgb 10.5 L, Hct 34.2 L, MCV 90.7, MCH 27.9, MCHC 30.7 L, RDW Std Deviation 51.2 H, RDW Coeff of Jazzmine 15.4 H, Plt Count 258, MPV 9.3, Immature Gran % (Auto) 3.000 H, Neut % (Auto) 69.0, Lymph % (Auto) 12.3 L, Pitt % (Auto) 12.3 H, Eos % (Auto) 2.6, Baso % (Auto) 0.8, Absolute Neuts (auto) 5.5, Absolute Lymphs (auto) 0.98, Nucleated RBC % 0 12/05/20 04:20: Sodium 142, Potassium 3.9, Chloride 107, Carbon Dioxide 29.0, Anion Gap 6, BUN 24 H, Creatinine 1.21 H, Estim Creat Clear Calc 58.74, Est GFR (MDRD) Af Amer 57 L, Est GFR (MDRD) Non-Af 47 L, BUN/Creatinine Ratio 19.8, Glucose 98, Calcium 9.2 12/05/20 06:15: POC Glucose 106 12/05/20 11:03: POC Glucose 94 12/05/20 16:35: POC Glucose 155 H Current Medications Acarbose (Acarbose 50 Mg Tablet) 25 mg PO TIDCM [facility] Last Admin: 12/05/20 16:33 Dose: 25 mg Documented by: Acetaminophen (Acetaminophen 500 Mg Tablet) 1,000 mg PO Q8 [facility] Last Admin: 12/05/20 14:11 Dose: 1,000 mg Documented by: Albuterol Sulfate (Albuterol 2.5 Mg/3 Ml Vial.Neb.) 2.5 mg INHALATION Q2H PRN PRN PRN Reason: WHEEZING Last Admin: 12/03/20 06:57 Dose: 2.5 mg Documented by: Alendronate Sodium (Alendronate Sodium 70 Mg Tablet) 70 mg PO MO [facility] Last Admin: 12/03/20 06:12 Dose: 70 mg Documented by: Amlodipine Besylate (Amlodipine 5 Mg Tablet) 5 mg PO DAILY [facility] Last Admin: 12/05/20 07:56 Dose: 5 mg Documented by: Bisacodyl (Bisacodyl 10 Mg Suppository) 10 mg RECTAL DAILY PRN PRN Reason: Constipation Last Admin: 11/23/20 14:57 Dose: 10 mg Documented by: Calamine/Phenol (Menthol/Lanolin/Calamine/Znox 113 Gm Tube) 1 applic TOPICAL 0600,2200 [facility]; Protocol Last Admin: 12/05/20 08:08 Dose: 1 applicatio Documented by: Cholecalciferol (Cholecalciferol (Vit D3) 1,000 Unit (25mcg)) 1,000 unit PO DAILY [facility] Last Admin: 12/05/20 07:56 Dose: 1,000 unit Documented by: Cyanocobalamin (Cyanocobalamin 500 Mcg Tablet) 1,000 mcg PO DAILY [facility] Last Admin: 12/05/20 07:57 Dose: 1,000 mcg Documented by: Diazepam (Diazepam 2 Mg Tablet) 2 mg PO TID PRN PRN PRN Reason: back pain Last Admin: 12/01/20 00:36 Dose: 2 mg Documented by: Enoxaparin Sodium (Enoxaparin 30 Mg/0.3 Ml Syringe) 30 mg SC DAILY@0600 [facility] Last Admin: 12/05/20 07:57 Dose: 30 mg Documented by: Febuxostat (Febuxostat 40 Mg Tablet) 40 mg PO DAILY [facility] Last Admin: 12/05/20 07:56 Dose: 40 mg Documented by: Fenofibrate (Fenofibrate 145 Mg Tablet) 145 mg PO DAILY [facility] Last Admin: 12/05/20 07:57 Dose: 145 mg Documented by: Fluticasone Propionate (Fluticasone 0.05% 1 [place] Nasal.Sry) 2 spray NASAL DAILY PRN PRN PRN Reason: CONGESTION Gabapentin (Gabapentin 100 Mg Capsule) 100 mg PO BIDCM [facility] Last Admin: 12/05/20 16:16 Dose: 100 mg Documented by: Gabapentin (Gabapentin 300 Mg Capsule) 300 mg PO 2000 [facility] Last Admin: 12/04/20 20:53 Dose: 300 mg Documented by: Insulin Glargine (Insulin Glargine 100 Units/Ml Pen) 45 units SC QPM [facility] Last Admin: 12/04/20 21:15 Dose: 45 units Documented by: Insulin Human Lispro (Insulin Lispro 100 Unit/Ml Insuln.Pen) 0 unit SC TIDAC [facility]; Protocol Last Admin: 12/05/20 18:05 Dose: 1 u Documented by: Ipratropium [place] (Ipratropium [place] 0.06% Nasal [place]) 2 spray NASAL TID [facility] Last Admin: 12/05/20 14:11 Dose: 2 spray Documented by: Lidocaine (Lidocaine 5% Patch) 2 patch TOPICAL DAILY [facility]; Protocol Last Admin: 12/05/20 08:07 Dose: 2 patch Documented by: Linagliptin (Linagliptin 5 Mg Tablet) 5 mg PO DAILY [facility] Last Admin: 12/05/20 07:56 Dose: 5 mg Documented by: Magnesium Hydroxide (Magnesium Hydroxide 30 Ml Udc) 30 ml PO DAILY PRN PRN PRN Reason: Constipation Last Admin: 11/23/20 17:25 Dose: 30 ml Documented by: Montelukast Sodium (Montelukast 10 Mg Tablet) 10 mg PO QHS [facility] Last Admin: 12/04/20 20:53 Dose: 10 mg Documented by: Nystatin (Nystatin Powder 15gm Bottle) 1 applic TOPICAL 0600,2200 [facility]; Protocol Last Admin: 12/05/20 08:07 Dose: 1 applicatio Documented by: Oxycodone HCl (Oxycodone 5 Mg Tablet) 5 mg PO Q4H PRN PRN PRN Reason: Pain Score 6-10 Last Admin: 12/05/20 15:16 Dose: 5 mg Documented by: Pantoprazole Sodium (Pantoprazole Sodium 40 Mg Tablet) 40 mg PO DAILY [facility] Last Admin: 12/05/20 07:56 Dose: 40 mg Documented by: Polyethylene Glycol (Polyethylene Glycol 3350 17 Gm Packet) 17 gm PO BID [facility] Last Admin: 12/05/20 16:16 Dose: 17 gm Documented by: Promethazine HCl (Promethazine 25 Mg Tablet) 12.5 mg PO Q6H PRN PRN PRN Reason: NAUSEA/VOMITING Last Admin: 12/02/20 09:48 Dose: 12.5 mg Documented by: Fluticasone/Salmeterol (Fluticasone/Salmeterol 232-14 Inhaler) 1 puff IH Q12 [facility] Last Admin: 12/05/20 08:06 Dose: 1 puff Documented by: Senna/Docusate Sodium (Senna/Docusate Sodium 1 Tablet) 2 tablet PO BID [facility] Last Admin: 12/05/20 16:16 Dose: 2 tablet Documented by: Sodium Chloride (0.9% Saline Lock 10 Ml Syringe) 10 - 40 ml IV UD PRN PRN Reason: SALINE FLUSH Tramadol HCl (Tramadol 50 Mg Tablet) 50 mg PO Q8H PRN PRN Reason: Pain Score 4-5 Last Admin: 12/05/20 08:03 Dose: 50 mg Documented by: Umeclidinium [place] (Umeclidinium [place] Inhaler) 1 puff IH DAILY [facility] Last Admin: 12/05/20 08:04 Dose: 1 puff Documented by: Discharge Diet: No Restrictions Discharge Activity: Return to Normal Activity, May Shower, Use Walker Weight Bearing Status: Weight bearing as tolerated Call your doctor if you observe: Fever of 101 or Higher, Inability to urinate, Inability to have a bowel movement, Shortness of breath, Chest pain, Uncontrolled pain Home Medications: Medications to take at Discharge Alendronate Sodium [Fosamax] 70 mg PO MO 06/21/17 Fluticasone 0.05% [Flonase Nasal [place]] 2 spray NASAL DAILY PRN PRN 06/21/17 Febuxostat [Uloric] 40 mg PO DAILY 12/30/18 Cholecalciferol (VIT D3) [Vitamin D3] 1,000 unit PO DAILY 04/16/20 Cyanocobalamin (Vitamin B-12) [Vitamin B-12] 1,000 mcg PO DAILY PRN PRN 06/01/20 fenofibric acid (choline) 135 mg capsule,delayed release 135 mg PO DAILY 07/17/20 fluticasone 500 mcg-salmeterol 50 mcg/dose blistr powdr for inhalation 1 inh INHALATION BID 07/17/20 sitagliptin 50 mg tablet 50 mg PO DAILY 07/17/20 tiotropium bromide 1.25 mcg/actuation mist for inhalation 2 puff INHALATION DAILY 07/17/20 Cimetidine [Heartburn Relief] 200 mg PO DAILY 11/19/20 Insulin Glargine [Lantus SoloStar Pen] 45 unit SC QPM 11/19/20 Montelukast Sodium [Singulair] 10 mg PO QHS 11/19/20 Pantoprazole Sodium [Protonix] 40 mg PO DAILY 11/19/20 Amlodipine Besylate [Norvasc] 5 mg PO DAILY 11/20/20 Acetaminophen [Tylenol] 1,000 mg PO Q8 tablet 12/05/20 Gabapentin [Neurontin] 100 mg PO BIDCM #60 cap 12/05/20 Gabapentin [Neurontin] 300 mg PO 2000 #30 cap 12/05/20 Ipratropium [place] 0.06% [ATROVENT NASAL SPRAY] 2 spray NASAL TID #1 nasal.sry 12/05/20 Lidocaine [Lidoderm Patch] 2 patch TOPICAL DAILY #60 patch 12/05/20 Menthol/Lanolin/Calamine/Znox [Calmoseptine Ointment] 1 applic TOPICAL 0600,2200 tube 12/05/20 Nystatin Powder [Mycostatin Powder] 1 applic TOPICAL 0600,2200 bottle 12/05/20 Oxycodone [Oxyir] 5 mg PO Q4H PRN PRN #18 tablet 12/05/20 Polyethylene Glycol 3350 [Miralax] 17 gm PO BID #60 packet 12/05/20 Senna/Docusate Sodium [Senokot-S] 2 tab PO BID PRN PRN #120 tab 12/05/20 traMADol [Ultram] 50 mg PO Q8H PRN #9 tablet 12/05/20 Following Prescriptions Were Given to Patient: Ipratropium [place] 0.06% [ATROVENT NASAL SPRAY] 2 spray NASAL TID #1 nasal.sry Transmission Status: Pending to [facility]30 Lidocaine [Lidoderm Patch] 2 patch TOPICAL DAILY #60 patch Transmission Status: Pending to [facility]30 Polyethylene Glycol 3350 [Miralax] 17 gm PO BID #60 packet Transmission Status: Pending to [facility]30 Gabapentin [Neurontin] 100 mg PO BIDCM #60 cap Transmission Status: Pending to [facility]30 Gabapentin [Neurontin] 300 mg PO 1999 #30 cap Transmission Status: Pending to [facility]30 Oxycodone [Oxyir] 5 mg PO Q4H PRN PRN #18 tablet PRN Reason: Pain Score 6-10 Transmission Status: Sent to [facility]30 Senna/Docusate Sodium [Senokot-S] 2 tab PO BID PRN PRN #120 tab PRN Reason: Constipation Transmission Status: Pending to [facility]30 traMADol [Ultram] 50 mg PO Q8H PRN #9 tablet PRN Reason: Pain Score 4-5 Transmission Status: Sent to [facility] Primary Care Physician: Veronica Oquendo DO [Primary Care Provider] - Please follow up with your Primary Care Physician in: 1 week. Please Follow Up With: Veronica Oquendo DO When: 1 week. Please Follow Up With: Chetan Medina MD When: 1 week. Disposition: Home Minutes spent on discharge:: 35 Patient Condition:: Stable Medical Necessity - Tobacco Use Smoking Status: Former smoker Tobacco Use: Non-smoker Meaningful Use Info Meaningful Use Diagnoses (Choose all that apply): None applicable
[2020-12-05 21:30] LABS: Bedside Glucose 163 mg/dL (70-110)
[2020-12-05] MEDS: Gabapentin 300 MG Capsule PO (22:02)
[2020-12-05] MEDS: Montelukast 10 MG Tablet PO (22:03)
[2020-12-06 04:00] VITALS: BP 134/69; PULSE 87; RESP 18; TEMP 36.6; O2SAT 94
[2020-12-06 06:10] LABS: Bedside Glucose 100 mg/dL (70-110)
[2020-12-06] MEDS: Enoxaparin 30 MG/0.3 ML Syringe SC (06:29)
[2020-12-06] MEDS: Cyanocobalamin 500 MCG Tablet 1000 MCG PO (06:30)
[2020-12-06] MEDS: Senna/Docusate Sodium 1 Tablet 2 TABLET PO ×2 (06:30→18:17)
[2020-12-06] MEDS: Polyethylene Glycol 3350 17 GM PACKET PO ×2 (06:31→18:17)
[2020-12-06] MEDS: amLODIPine 5 MG Tablet PO (06:31)
[2020-12-06] MEDS: LINAGLIPTIN 5 MG TABLET PO (06:31)
[2020-12-06] MEDS: Fenofibrate 145 MG Tablet PO (06:31)
[2020-12-06] MEDS: Febuxostat 40 MG TABLET PO (06:31)
[2020-12-06] MEDS: Pantoprazole Sodium 40 MG Tablet PO (06:31)
[2020-12-06] MEDS: Umeclidinium Bromide Inhaler 1 PUFF IH (06:34)
[2020-12-06] MEDS: Ipratropium Bromide 0.06% NASAL SPRAY 2 SPRAY NASAL ×3 (06:37→23:18)
[2020-12-06] MEDS: Fluticasone/Salmeterol 232-14 Inhaler 1 PUFF IH ×2 (06:38→18:18)
[2020-12-06] MEDS: Lidocaine 5% Patch 2 PATCH TOPICAL (07:56)
[2020-12-06] MEDS: Menthol/Lanolin/Calamine/Znox 113 GM Tube 1 APPLIC TOPICAL ×2 (08:00→23:20)
[2020-12-06] MEDS: Nystatin Powder 15gm Bottle 1 APPLIC TOPICAL ×2 (08:02→23:17)
[2020-12-06] MEDS: oxyCODONE 5 MG Tablet PO ×2 (08:08→15:16)
[2020-12-06] MEDS: Gabapentin 100 MG Capsule PO ×2 (08:08→18:17)
[2020-12-06] MEDS: Acarbose 50 MG Tablet 25 MG PO ×3 (08:09→18:17)
[2020-12-06 10:00] VITALS: PULSE 87; RESP 18; O2SAT 97
[2020-12-06 10:56] LABS: Bedside Glucose 133 mg/dL (70-110)
[2020-12-06 11:09] VITALS: O2SAT 94
--- NOTE | 2020-12-06 12:58 | MDS.RN ---
Pain interview for bird 12/08/20 completed.
[2020-12-06 13:54] VITALS: BP 132/54; PULSE 83; RESP 18; TEMP 36.4; O2SAT 98
--- NOTE | 2020-12-06 14:10 | NURSING ---
Resident and family updated on COVID status on the unit.
[2020-12-06 16:56] LABS: Bedside Glucose 150 mg/dL (70-110)
[2020-12-06] MEDS: Insulin Lispro 100 UNIT/ML INSULN.PEN SC (18:16)
[2020-12-06 22:41] LABS: Bedside Glucose 169 mg/dL (70-110)
[2020-12-06] MEDS: Gabapentin 300 MG Capsule PO (23:15)
[2020-12-06] MEDS: Montelukast 10 MG Tablet PO (23:16)
[2020-12-07 06:20] VITALS: BP 148/59; PULSE 85; RESP 16; TEMP 37; O2SAT 97
[2020-12-07] MEDS: Fluticasone/Salmeterol 232-14 Inhaler 1 PUFF IH ×2 (06:21→16:50)
[2020-12-07] MEDS: Ipratropium Bromide 0.06% NASAL SPRAY 2 SPRAY NASAL ×3 (06:22→21:31)
[2020-12-07] MEDS: Menthol/Lanolin/Calamine/Znox 113 GM Tube 1 APPLIC TOPICAL ×2 (06:22→21:30)
[2020-12-07] MEDS: Cyanocobalamin 500 MCG Tablet 1000 MCG PO (06:23)
[2020-12-07] MEDS: Enoxaparin 30 MG/0.3 ML Syringe SC (06:23)
[2020-12-07] MEDS: Umeclidinium Bromide Inhaler 1 PUFF IH (06:23)
[2020-12-07] MEDS: Fenofibrate 145 MG Tablet PO (06:24)
[2020-12-07] MEDS: LINAGLIPTIN 5 MG TABLET PO (06:24)
[2020-12-07] MEDS: Pantoprazole Sodium 40 MG Tablet PO (06:24)
[2020-12-07] MEDS: Febuxostat 40 MG TABLET PO (06:24)
[2020-12-07] MEDS: Senna/Docusate Sodium 1 Tablet 2 TABLET PO ×2 (06:24→16:50)
[2020-12-07] MEDS: Lidocaine 5% Patch 2 PATCH TOPICAL (06:25)
[2020-12-07] MEDS: Polyethylene Glycol 3350 17 GM PACKET PO ×2 (06:25→16:51)
[2020-12-07] MEDS: Nystatin Powder 15gm Bottle 1 APPLIC TOPICAL ×2 (06:25→21:29)
[2020-12-07] MEDS: amLODIPine 5 MG Tablet PO (06:25)
[2020-12-07] MEDS: Gabapentin 100 MG Capsule PO ×2 (08:08→16:50)
[2020-12-07] MEDS: Acarbose 50 MG Tablet 25 MG PO ×3 (08:08→16:49)
[2020-12-07 08:33] LABS: Bedside Glucose 118 mg/dL (70-110)
[2020-12-07 08:33] LABS: Bedside Glucose 130 mg/dL (70-110)
--- NOTE | 2020-12-07 08:52 | CASEMGMT ---
Social Work BIMS and PHQ-9 completed for MDS assessment. Tiara Woodson, FENDER MECHANIC CHART READER
[2020-12-07] MEDS: oxyCODONE 5 MG Tablet PO ×2 (09:33→17:32)
[2020-12-07 11:01] LABS: Bedside Glucose 162 mg/dL (70-110)
[2020-12-07 13:34] VITALS: BP 135/62; PULSE 84; RESP 17; TEMP 36.5; O2SAT 96
[2020-12-07] MEDS: Insulin Lispro 100 UNIT/ML INSULN.PEN SC ×2 (13:55→17:33)
[2020-12-07 16:40] LABS: Bedside Glucose 176 mg/dL (70-110)
[2020-12-07 17:42] VITALS: O2SAT 96
[2020-12-07] MEDS: Gabapentin 300 MG Capsule PO (21:29)
[2020-12-07] MEDS: Montelukast 10 MG Tablet PO (21:29)
[2020-12-07] MEDS: Acetaminophen 500 MG Tablet 1000 MG PO (21:29)
[2020-12-07 21:36] LABS: Bedside Glucose 208 mg/dL (70-110)
[2020-12-07 22:42] VITALS: PULSE 86; RESP 20; O2SAT 94
[2020-12-08] MEDS: oxyCODONE 5 MG Tablet PO (03:56)
[2020-12-08 04:59] VITALS: BP 112/65; PULSE 86; RESP 18; TEMP 36.6; O2SAT 97
[2020-12-08] MEDS: Ipratropium Bromide 0.06% NASAL SPRAY 2 SPRAY NASAL (05:00)
[2020-12-08] MEDS: Febuxostat 40 MG TABLET PO (05:00)
[2020-12-08] MEDS: Mirabegron 50 MG TAB.ER.24H PO (05:01)
[2020-12-08] MEDS: Cyanocobalamin 500 MCG Tablet 1000 MCG PO (05:01)
[2020-12-08] MEDS: amLODIPine 5 MG Tablet PO (05:01)
[2020-12-08] MEDS: LINAGLIPTIN 5 MG TABLET PO (05:01)
[2020-12-08] MEDS: Senna/Docusate Sodium 1 Tablet 2 TABLET PO (05:01)
[2020-12-08] MEDS: Pantoprazole Sodium 40 MG Tablet PO (05:01)
[2020-12-08] MEDS: Fenofibrate 145 MG Tablet PO (05:01)
[2020-12-08] MEDS: Nystatin Powder 15gm Bottle 1 APPLIC TOPICAL (05:01)
[2020-12-08] MEDS: Fluticasone/Salmeterol 232-14 Inhaler 1 PUFF IH (05:02)
[2020-12-08] MEDS: Lidocaine 5% Patch 2 PATCH TOPICAL (05:02)
[2020-12-08] MEDS: Umeclidinium Bromide Inhaler 1 PUFF IH (05:02)
[2020-12-08] MEDS: Menthol/Lanolin/Calamine/Znox 113 GM Tube 1 APPLIC TOPICAL (05:03)
[2020-12-08] MEDS: Polyethylene Glycol 3350 17 GM PACKET PO (05:03)
[2020-12-08] MEDS: Enoxaparin 30 MG/0.3 ML Syringe SC (05:03)
[2020-12-08 06:25] LABS: Bedside Glucose 142 mg/dL (70-110)
[2020-12-08] MEDS: Acarbose 50 MG Tablet 25 MG PO (08:17)
[2020-12-08] MEDS: Gabapentin 100 MG Capsule PO (08:18)
[2020-12-08 10:00] VITALS: BP 130/65; PULSE 86; RESP 18; TEMP 36.6; O2SAT 92
== END 2020-12-08 13:01 | disposition home or self-care (01) | DRG 559 ==
PROVIDERS: Internal Medicine; Admitting Provider Family Medicine Geriatric Medicine; PCP Internal Medicine; Visit Provider Family Medicine Geriatric Medicine
DX: M80.88XD Other osteoporosis with current pathological fracture, vertebra(e), subsequent encounter for fracture with routine healing (principal); J18.9 Pneumonia, unspecified organism; J44.0 Chronic obstructive pulmonary disease with (acute) lower respiratory infection; I12.9 Hypertensive chronic kidney disease with stage 1 through stage 4 chronic kidney disease, or unspecified chronic kidney disease; G47.33 Obstructive sleep apnea (adult) (pediatric); K21.9 Gastro-esophageal reflux disease without esophagitis; N32.81 Overactive bladder; E11.22 Type 2 diabetes mellitus with diabetic chronic kidney disease; E78.5 Hyperlipidemia, unspecified; I48.0 Paroxysmal atrial fibrillation; Z74.01 Bed confinement status; I27.20 Pulmonary hypertension, unspecified; Z91.19 Patient's noncompliance with other medical treatment and regimen; M10.9 Gout, unspecified; E66.01 Morbid (severe) obesity due to excess calories; Z68.38 Body mass index [BMI] 38.0-38.9, adult; Z87.891 Personal history of nicotine dependence; N18.32 Chronic kidney disease, stage 3b; M48.061 Spinal stenosis, lumbar region without neurogenic claudication; E87.5 Hyperkalemia; K58.1 Irritable bowel syndrome with constipation
CPT/HCPCS: 36415; 71046; 74018; 80048; 80053; 81001; 82962; 83735; 84100; 84132; 85025; 85027; 87040; 87086; 87426; 87635; 92507; 92526; 92610; 94640; 97110; 97116; 97162; 97166; 97530; 97535; 97802; J7030; U0002

== ENCOUNTER → 2020-12-17 15:54 | Outpatient (CLI) | payer MEDICARE, OTHER, SELFPAY ==
[2020-11-20 22:51] VITALS: BMI 38.5
--- NOTE | 2020-12-17 16:05 | RAD_ITS ---
STUDY: X-RAY CHEST REASON FOR EXAM: Female, 70 years old. abcess of lung TECHNIQUE: PA and lateral views of the chest. COMPARISON: 11/20/2020 FINDINGS: There is hyperinflation of the lungs consistent with chronic obstructive lung disease (COPD). There is no demonstrated pleural abnormality. There is moderate cardiac enlargement. Normal mediastinum and arthur. Normal visualized pulmonary arteries. Normal visualized aortic arch and descending thoracic aorta. There is a dextroscoliosis of the thoracic spine. Normal visualized ribs, clavicles, and shoulders. There is no demonstrated abnormality of the visualized soft tissue structures of the upper abdomen. RAD/Chest PA and Lateral IMPRESSION: Emphysema without pneumonia or atelectasis. Electronically Signed: Ag Stanton MD at 16:42 EST Tel , Service support ,
== END ==
PROVIDERS: PCP Internal Medicine; Referring Provider Internal Medicine Pulmonary Disease; Visit Provider Internal Medicine Pulmonary Disease
DX: J85.2 Abscess of lung without pneumonia (principal)
CPT/HCPCS: 71046

== ENCOUNTER 2021-01-31 14:30 | Outpatient (RCR) | payer MEDICARE, OTHER, SELFPAY ==
--- NOTE | 2020-12-25 15:37 | HP.PTEVAL_ITS ---
Patient's Visit Information WALLACE BAZAN is a 70 year old F referred to Physical Therapy by Dr. Kb Enriquez MD with a diagnosis of L1 compression fracture, LE weakness and debility. Date of Evaluation: 12/25/20 Physical Therapist: Pravin Villasenor DPT - Visit Plan Frequency: 2x /Week Duration: 4-6 Weeks Plan: start with BLE and core stabilty exercises, neutral spine in aquatic setting. Progress as toelrated. Avoid jet massage as patient had a negative response to this previously. - Subjective Pt. is here today for her initial evaluation with diagnosis of L1 compression fracture, LE weakness and debility. Pt. arrives today using rollator. Pt. reports having a kyphoplasty to her L1 vertebral body. Pt. was on TCU for 20 days working on strength and general mobility. She is here today to be evaluated to start aquatic therapy. Pt. is still having pain in her upper lumbar spine, which is more R sided. She has had 2 lumbar fusions ranging from L4-S1, she has also had bilateral knees replaced. She is currently sleeping in a hospital bed at home with good tolerance. She live in a 1 story home. She has been using rollator in public (doctors appointements) and FWW for home use. She uses a tub shower bench as well. She does reprot that her R leg feels weak and wants to give out on her if she stands for too long. 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 - Pain Lumbar spine Pain Intensity (Out of 10): 4 Pain Intensity Range: 6 Comment: increases with standing and walking - Objective POSTURE: Pt. has slight anterior shoulders with FH posture. Pt. has heavy use of AD with R lateral lean in stance. Pt. reports increased weakness of RLE during stance as well. PALPATION: Pt. has tenderness to R sided lumbar erector spinea. Pt. has no leg pain with palpation. NEUROL. ROM: LUMBAR SPINE: flexion- mod loss increase NW, extension mod loss increase NW, SB mod loss increase NW, rotation mod loss increase B NW. Pt. has tight B hamstrings. Hip ROM normal bilaterally. MMT: RLE- ankle 5/5 throughout; toe extension 5/5; knee- ext 4/5, flexion 4/5; hip- flexion 4/5, abd 4/5, ext 4/5. LLE-ankle 5/5 throughout; toe extension 5/5; knee- ext 4+/5, flexion 4+/5; hip- flexion 4+/5, abd 4/5, ext 4/5. Core strength- poor. GAIT: pt. ambulates with a rollator with reduced L step length and increased R lateral lean. Pt. has flexed posture and reduced tempo with walking. - Goals Goal 1:: LTG: pt. to be I with HEP. Goal Time Frame: 4-6 Weeks Goal 2:: STG: pt. to sleep throughout the night without increase in symptoms. Goal 3:: LTG: Pt. to ambulate with 0-2/10 pain in lumbar spine for unlimited distances with LRD. Goal Time Frame: 4-6 Weeks Goal 4:: LTG: pt. to have increased BLE and core strength increased by 1/2 grade of all effected musculature. 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 Goal Time Frame: 4-6 Weeks - Rehabilitation Potential Physical Therapy Diagnosis: Pt. has signs and symptoms of L1 compression fracture, BLE weakness adn debility. She did have a kyphoplasty. Pt. hs subsequent BLE weakness, difficulty with gait, core weakness, and increased pain. Pt. would benefit from PT to work on the above limitations progressing to functional mobility as able. I would like her to start in aquatic setting working on core/BLE stability progressing tolerance to all functional mobility. Rehabilitation Potential: Good - Anticipated Interventions Patient/Client Instruction: Educate patient on: Condition, Plan of Care, Risk Factors, Benefits of Fitness Program For the Purpose of:: To facilitate caregiver knowledge, To improve self management, To prevent re-injury, To improve ability to perform tasks related to life management, To improve tolerance to ADL's Therapeutic Exercise to Include: Strength training, Power training, Endurance training, Body mechanics, Postural training, Flexibilty training, Gait and locomotor training, In an aquatic setting, Passive ROM, Active ROM, Dynamic Lumbar Stabilization For the Purpose of:: To decrease pain, To decrease swelling/inflammation, To increase ROM, To improve nutrient delivery to tissue, To increase oxygenation perfusion, To improve muscle performance and motor function, To improve ability to perform ADL's, To increase tolerance to activity/condition/position, To improve performance and independence with ADL's, To decrease level of supervision to perform tasks, To improve ability of physical actions for home/community/work/leisure, To improve gait and locomotor functions, To improve health of tissue, To decrease soft tissue restriction Thank you for the opportunity to evaluate your patient. For Medicare and Medicare HMO plans, please review the plan of care and approve it. It will need to be FAXED BACK to us at [phone] for Medicare purposes. For Medicare only, by signing this I certify the plan of care. Please let me know if there are questions or concerns regarding this plan of care. Physician Signature: Date:
== END 2021-01-31 19:00 | disposition home or self-care (01) ==
LOC: PT 14:30
PROVIDERS: PCP Internal Medicine; Referring Provider Family Medicine Geriatric Medicine; Visit Provider Family Medicine Geriatric Medicine
DX: S32.009D Unspecified fracture of unspecified lumbar vertebra, subsequent encounter for fracture with routine healing (principal); R53.81 Other malaise; M54.5 Low back pain
CPT/HCPCS: 97113; 97161

== ENCOUNTER → 2021-02-27 13:42 | Outpatient (CLI) | payer MEDICARE, OTHER, SELFPAY ==
[2021-02-12 13:05] VITALS: BMI 40.6
[2021-02-27 15:37] LABS: Hematocrit 42.6 % (37-47); Hemoglobin 12.7 g/dL (12.0-15.0); Mean Corp Hgb Conc 29.8 g/dL (32-36); Mean Corpuscular Hgb 27.3 pg (27.0-32.0); Mean Corpuscular Volume 91.6 fL (81-99); Mean Platelet Vol. 9.7 fl (6.2-12.0); Platelet Count 308 K/mm3 (150-450); RBC Distribution Width CV 15.3 % (11.6-14.6); RBC Distribution Width SD 51.8 fl (35.1-43.9); Red Blood Count 4.65 M/mm3 (4.2-5.4); White Blood Count 8.7 K/mm3 (4.4-11.0)
[2021-02-27 15:41] LABS: Albumin, Serum 3.9 g/dL (3.2-5.0); BUN 27 mg/dL (7-18); Calcium,Total 10.1 mg/dL (8.5-10.1); Chloride 107 mmol/L (98-107); Creatinine, Serum 1.59 mg/dL (0.55-1.02); EST Glomerular Filtration Rate 34 mL/min (>60); Est Glom Filt Rate - Afr Amer 41 mL/min (>60); Glucose 111 mg/dL (74-106); Magnesium 1.9 mg/dL (1.6-2.6); Phosphorus 2.6 mg/dL (2.5-4.9); Potassium 4.2 mmol/L (3.5-5.1); Sodium Level 139 mmol/L (136-145); Uric Acid 4.8 mg/dL (2.6-6.0)
[2021-02-27 15:43] LABS: PTHIN 62.6 pg/mL (18.4-80.1)
[2021-02-27 15:46] LABS: Vitamin D,25 Hydroxy 36.2 ng/mL
[2021-02-27 18:10] LABS: Microalbumin,Random Urine 8.8 mg/L (NO RANGE EST.); Microalbumin:Creatinine Ratio 20.7 mg/g CRE (<30 mg/g CRE)
== END ==
PROVIDERS: PCP Internal Medicine; Visit Provider Internal Medicine Nephrology
DX: E55.9 Vitamin D deficiency, unspecified (principal); N18.4 Chronic kidney disease, stage 4 (severe); D63.1 Anemia in chronic kidney disease
CPT/HCPCS: 36415; 80069; 82043; 82306; 82570; 83735; 83970; 84550; 85027

== ENCOUNTER → 2021-03-22 15:52 | Outpatient (CLI) | payer MEDICARE, OTHER, SELFPAY ==
[2021-03-22 14:52] VITALS: BMI 41.3
--- NOTE | 2021-03-22 15:54 | RAD_ITS ---
STUDY: X-RAY CHEST REASON FOR EXAM: Female, 70 years old. SOB TECHNIQUE: PA and lateral views of the chest. COMPARISON: 12/17/2020 FINDINGS: The lungs are clear and expanded. There is no demonstrated pleural abnormality. There is moderate cardiac enlargement. Normal mediastinum and arthur. Normal visualized pulmonary arteries. Normal visualized aortic arch and descending thoracic aorta. There is a dextroscoliosis of the thoracic spine. Normal visualized ribs, clavicles, and shoulders. There is no demonstrated abnormality of the visualized soft tissue structures of the upper abdomen. RAD/Chest PA and Lateral IMPRESSION: No change from 12/17/2020. Electronically Signed: Ag Stanton MD at 7:34 EDT Tel , Service support ,
== END ==
PROVIDERS: PCP Internal Medicine; Referring Provider Nurse Practitioner Family; Visit Provider Nurse Practitioner Family
DX: R06.00 Dyspnea, unspecified (principal); I48.91 Unspecified atrial fibrillation
CPT/HCPCS: 36415; 71046; 83880

== ENCOUNTER → 2021-04-02 16:56 | Outpatient (CLI) | payer MEDICARE, OTHER, SELFPAY ==
[2021-03-22 14:52] VITALS: BMI 41.3
--- NOTE | 2021-04-02 17:01 | RAD_ITS ---
STUDY: X-RAY CHEST REASON FOR EXAM: Female, 70 years old. DYSPNEA TECHNIQUE: PA and lateral views of the chest. COMPARISON: None. FINDINGS: The lungs are clear and expanded. There is no demonstrated pleural abnormality. Normal size heart. Normal mediastinum and arthur. Normal visualized pulmonary arteries. Normal visualized aortic arch and descending thoracic aorta. Dextroscoliosis of the lower thoracic spine. Normal visualized ribs, clavicles, and shoulders. There is no demonstrated abnormality of the visualized soft tissue structures of the upper abdomen. RAD/Chest PA and Lateral IMPRESSION: No active disease. Electronically Signed: Ag Stanton MD at 17:31 EDT Tel , Service support ,
[2021-04-02 17:49] LABS: Hematocrit 41.2 % (37-47); Hemoglobin 12.8 g/dL (12.0-15.0); Mean Corp Hgb Conc 31.1 g/dL (32-36); Mean Corpuscular Hgb 28.4 pg (27.0-32.0); Mean Corpuscular Volume 91.4 fL (81-99); Mean Platelet Vol. 9.6 fl (6.2-12.0); POSITIVE COUNT YES; POSITIVE MORPHOLOGY YES; Platelet Count 337 K/mm3 (150-450); RBC Distribution Width CV 15.8 % (11.6-14.6); RBC Distribution Width SD 52.4 fl (35.1-43.9); Red Blood Count 4.51 M/mm3 (4.2-5.4); White Blood Count 16.5 K/mm3 (4.4-11.0)
[2021-04-02 17:52] LABS: Differential Indicated MANUAL DIFF
[2021-04-02 18:21] LABS: Eosinophil 1 % (0-5); Lymphocyte 8 % (19-41); Monocyte 2 % (0-10); Myelocyte 3 % (0-0); Neutrophil-Band 2 % (0-5); Neutrophil-Segmented 84 % (47-70); Total Cells Counted 100 (MANUAL DIFF)
[2021-04-02 18:23] LABS: Absolute Lymphocyte Count 1.32 X10^3/uL (0.83-4.51); Absolute Neutrophil Count 14.2 X10^3/uL (2.0-7.7); Platelet Estimate ADEQUATE (ADEQ)
[2021-04-02 18:24] LABS: Anisocytosis RARE; Macrocytosis RARE; Red Cell Morphology N CHROM NORMAL (NORM C&C)
[2021-04-03 12:25] LABS: Pathologist Review Reviewed
== END ==
PROVIDERS: PCP Internal Medicine; Referring Provider Internal Medicine Pulmonary Disease; Visit Provider Internal Medicine Pulmonary Disease
DX: R06.00 Dyspnea, unspecified (principal); I27.20 Pulmonary hypertension, unspecified; J45.909 Unspecified asthma, uncomplicated
CPT/HCPCS: 36415; 71046; 85025

== ENCOUNTER → 2021-05-07 12:41 | Outpatient (CLI) | payer MEDICARE, OTHER, SELFPAY ==
[2021-03-22 14:52] VITALS: BMI 41.3
[2021-05-07 13:58] LABS: Amphetamine Urine VISTA NEGATIVE (<1000 ng/mL); Barbiturate Urine VISTA NEGATIVE (< 200 ng/mL); Benzodiazepine Urine VISTA NEGATIVE (< 200 ng/mL); Cocaine Urine VISTA NEGATIVE (< 300 ng/mL); Ecstacy Urine VISTA NEGATIVE (< 500 ng/mL); Methadone Urine VISTA NEGATIVE (< 300 ng/mL); PCP Urine VISTA NEGATIVE (< 25 ng/mL); THC Urine VISTA NEGATIVE (< 50 ng/mL); Vista UDS pH Range 7
== END ==
PROVIDERS: PCP Internal Medicine; Referring Provider Anesthesiology Pain Medicine; Visit Provider Anesthesiology Pain Medicine
DX: F11.20 Opioid dependence, uncomplicated (principal)
CPT/HCPCS: 80307

== ENCOUNTER → 2021-05-27 13:38 | Outpatient (CLI) | payer MEDICARE, OTHER, SELFPAY ==
[2021-03-22 14:52] VITALS: BMI 41.3
--- NOTE | 2021-05-27 13:40 | CT_ITS ---
EXAM: CT ABDOMEN AND PELVIS WITH INTRAVENOUS CONTRAST CLINICAL INDICATION: Abdominal mass. TECHNIQUE: Helically acquired images were obtained of the abdomen and pelvis with intravenous contrast. This CT exam was performed using one or more of the following dose reduction techniques: automated exposure control, adjustment of the mA and/or kV according to patient size, and/or use of iterative reconstruction technique. This report was created using [employer] report generation technology. CONTRAST: Oral and amp; IV Readi-CAT and amp; 100mL [id number] COMPARISON: CT abdomen and pelvis without contrast 11/19/2020. FINDINGS: LOWER THORAX: 3.4 x 1.9 cm solid mass in the left lower lobe subpleural parenchyma. This was present previously and is overall unchanged. No cardiomegaly. No significant pericardial effusion. ABDOMEN: LIVER: Unremarkable. Homogeneous. No focal mass. GALLBLADDER AND BILE DUCTS: Unremarkable. No calcified gallstones. No gallbladder distention or wall edema. No intra- or extrahepatic biliary ductal dilation. PANCREAS: Unremarkable. No focal cystic or solid mass. SPLEEN: Unremarkable. Normal size without focal cystic or solid mass. ADRENALS: Unremarkable. No nodules. KIDNEYS AND URETERS: Unremarkable. Normal renal size and position. No hydronephrosis. STOMACH AND BOWEL: Unremarkable. No stomach or bowel distention. No focal inflammatory change. PELVIS: APPENDIX: Normal. BLADDER: Unremarkable. REPRODUCTIVE: Unremarkable as visualized. No mass. ABDOMEN and PELVIS: INTRAPERITONEAL SPACE: Unremarkable. No ascites or other fluid collection. No free air. BONES/JOINTS: Old L1 fracture contains PMMA casts from previous kyphoplasty. Grade 1 anterolisthesis of L5 on S1. Pedicular screws and rods at L4 down to S1 with postsurgical absence of the L4-L5 spinous processes and lamina. Pronounced L3-L4 degenerative disc space height narrowing with degenerative vacuum phenomenon. No suspicious lytic or blastic abnormality. SOFT TISSUES: Unremarkable. No discrete abdominal or pelvic wall hernia. VASCULATURE: Unremarkable. Abdominal aorta is non-dilated. LYMPH NODES: Unremarkable. No enlarged lymph nodes. CT/Abdomen/Pelvis WITH Contrast IMPRESSION: 1. No CT evidence of abdominal mass but there is a 3.4 x 1.9 cm solid mass in the left lung base.. This left lung mass was present previously and is unchanged. HRCT chest will be more helpful for evaluation of lung mass and for possible additional pulmonary nodules. 2. Interval kyphoplasty of the previous L1 compression fracture. 3. No suspicious acute abnormality in the abdomen and pelvis. Electronically Signed: Jarocho Greenberg MD at 15:30 EDT , Service support ,
[2021-05-27 13:51] LABS: CREATININE FINGERSTICK 1.8 mg/dL (0.55-1.02)
== END ==
PROVIDERS: PCP Internal Medicine; Referring Provider Internal Medicine; Visit Provider Internal Medicine
DX: R19.03 Right lower quadrant abdominal swelling, mass and lump (principal)
CPT/HCPCS: 74177; Q9967

== ENCOUNTER → 2021-06-27 10:52 | Outpatient (CLI) | payer MEDICARE, OTHER, SELFPAY ==
[2021-02-12 13:05] VITALS: BMI 40.6
[2021-03-22 14:52] VITALS: BMI 41.3
[2021-06-20 09:29] VITALS: BMI 41.3
--- NOTE | 2021-06-27 10:59 | BI_ITS ---
MAMMOGRAPHY - BILATERAL SCREENING REASON FOR EXAM: Female, 70 years old. Routine annual screening examination. PERTINENT HISTORY: Non-contributory. TECHNIQUE: Digital bilateral breast luis (3D mammographic acquisition) in the CC and MLO projections. 2-D mediolateral oblique (MLO) and craniocaudad (CC) views of both breasts were obtained. CAD: Full Field Digital Mammography with Computer Added Detection was performed. COMPARISON: Comparison is made with prior study dated 06/26/2020 and 06/09/2019. FINDINGS: Breast Composition: The breasts are almost entirely fatty. There are no dominant masses or suspicious calcifications. No other significant abnormalities are identified. There has been no significant change since the prior study. BI/SCRN MAMM (CAD)W/LUIS BILAT IMPRESSION: Stable bilateral screening mammogram. Yearly follow-up mammogram recommended. (A) ASSESSMENT CATEGORY: BIRADS Category 1: Negative. A letter regarding these results will be sent to the patient by the facility within 30 days. Approximately 10% of breast cancers are not detected by mammography. A normal mammogram should not delay biopsy of a clinically suspicious abnormality. [id number] Electronically Signed: Anam Larios MD at 13:21 EDT , Service support ,
--- NOTE | 2021-06-27 10:59 | BD_ITS ---
STUDY: DUAL ENERGY X-RAY ABSORPTIOMETRY / DXA REASON FOR EXAM: Female, 70 years old. [id number] TECHNIQUE: Bone Mineral Density (BMD) measurements of lumbar spine and bilateral hips were obtained. COMPARISON: None. FINDINGS: Lumbar Spine (L1-L4): g/cm2 (1.094) / T-score (0.3) / Z-score (2.5) Findings are suggestive of normal bone density with a low fracture risk. Left Femur Total: g/cm2 (0.846) / T-score (-0.8) / Z-score (0.7) Left Femoral Neck: g/cm2 (0.635) / T-score (-1.9) / Z-score (-0.1) Right Femur Total: g/cm2 (0.817) / T-score (-1.0) / Z-score (0.5) Right Femoral Neck: g/cm2 (0.651) / T-score (-1.8) / Z-score (0.0) BD/Dexa Bone Density Study IMPRESSION: The patient is considered osteopenic as outlined below according to World Gerem[employer] Organization (WHO) criteria with a moderate fracture risk. Reference Information: The T-score is the number of standard deviations above or below the standard which is normal for young adults at their peak bone mineral density. The World Health Organization (WHO) interprets the T-scores as follows: Above -1 Normal bone density Between -1 and -2.5 Osteopenia Equal to / or below -2.5 Osteoporosis As a practical clinical guideline, osteopenia may be graded as follows: Mild -1 through -1.5 Moderate -1.6 through -2.0 Severe -2.1 through -2.4 The Z-score is the number of standard deviations above or below age-matched controls. A Z-score of less than -1.5 would be considered abnormal. References: 1. NIH Osteoporosis and Related Bone Diseases www osteo.org 2. International Society for Clinical Densitometry www iscd.org 3. National Osteoporosis Foundation www nof.org Electronically Signed: Anam Larios MD at 14:43 EDT , Service support ,
== END ==
PROVIDERS: PCP Internal Medicine; Referring Provider Internal Medicine; Visit Provider Internal Medicine
DX: Z12.31 Encounter for screening mammogram for malignant neoplasm of breast (principal); Z78.0 Asymptomatic menopausal state; M85.80 Other specified disorders of bone density and structure, unspecified site
CPT/HCPCS: 77063; 77067; 77080

== ENCOUNTER 2021-07-05 09:20 | Emergency (ER) | payer MEDICARE, OTHER, SELFPAY ==
[2021-06-20 09:29] VITALS: BMI 41.3
[2021-07-05 09:22] VITALS: BP 174/74; PULSE 81; RESP 16; TEMP 36.4; O2SAT 96; BMI 41.5
--- NOTE | 2021-07-05 10:03 | CT_ITS ---
EXAM DESCRIPTION: CT scan of the abdomen and pelvis CLINICAL HISTORY: 70 years Female, Diffuse Pain, distension COMPARISON: Previous CT scan of the abdomen and pelvis obtained on 05/19/2021, CT scan chest obtained on 08/03/2020 TECHNIQUE: A CT scan of the abdomen and pelvis was performed initially without than with IV contrast contrast administration. Oral contrast was also administered. Coronal and sagittal reconstruction images were reviewed. This exam was performed according to our departmental dose-optimization program, which includes automated exposure control, adjustment of the mA and/or kV according to patient size and/or use of iterative reconstruction technique. FINDINGS: The base of the heart is normal. There is a pleural-based 2.46 cm lobular masslike density seen in the left lung base which was previously identified and is unchanged. Most likely this represents a lobular area of pleural thickening and fibrosis. The liver is normal.The spleen is normal.The adrenal glands are normal.The head, body, and tail of the pancreas are normal. 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 The right kidney contains a single small 3 mm nonobstructing calyceal calculus in the inferior pole calyces of the right kidney The abdominal aortal is normal along its course and distribution. No paraortic lymphadenopathy is seen. A marked amount of fecal material is noted within the colon. The CT scan of the pelvis was then reviewed. The common iliac vessels, external iliac vessels, and common femoral vessels are normal along their course and distribution No pelvis masses or lesions are seen. The appendix is not seen No pericecal inflammatory reaction is seen. Bone scanning windows of the lumbar spine and pelvis were reviewed in the coronal and sagittal planes and show posterior spinal fusion from L4 through S1 with an old vertebroplasty involving the L1 vertebral body. CT/Abdomen/Pelvis W IV Cont ONLY IMPRESSION: 1. 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 The right kidney contains a 3 mm nonobstructing calyceal calculus. 2. A large amount of fecal material is noted within the colon. Electronically Signed: Romel Crum DO at 12:02 EDT Tel , Service support ,
--- NOTE | 2021-07-05 10:05 | EDS_ITS ---
HPI HPI - GI History of Present Illness Chief Complaint: Abd Pain Informant: patient Abdominal Pain/Flank Pain Onset: Days (2-3) Context: Gradual Onset Timing: Continuous Quality: Aching Location: Diffuse Current Severity: Moderate Maximum Severity: Moderate Worsened by: Nothing Relieved by: Nothing Nausea/Vomiting/Emesis GI Symptom: Negative for Nausea and Vomiting Diarrhea/Melena/Hematochezia GI Symptom: Positive for - (Normal bowel movements); Negative for Diarrhea, Melena and Hematochezia Associated Symptoms Associated Symptoms: Positive for Frequency; Negative for Dysuria, Hematuria and Urgency Narrative Narrative: Progressively worsening distention and pain for several days only. States she is on blood pressure medications that she has been manipulating with her doctor to try to get her blood pressure under better control, and she is taking some pain medication for shingles that she has had for about 1 week in her right upper flank, states she is drinking more fluids and urinating more, and now these abdominal symptoms she has never had before. Has had prior cholecystectomy and some C-sections no other abdominal surgeries. No other recent illness except for the shingles. No nausea or vomiting. Eating and drinking okay. States she is having normal bowel movements and is not really constipated. No blood or melena in her stool. [facility] Medical History Allergic rhinitis Asthma Chronic kidney disease Chronic obstructive lung disease Chronic renal failure, stage 3 (moderate) Compression fracture of L1 vertebra Constipation Debility Diabetes mellitus type 2 in obese Dysphagia Essential (primary) hypertension GERD (gastroesophageal reflux disease) Gout Hyperlipidemia Hyperuricemia Intractable low back pain L1 vertebral fracture Leukocytosis Lung abscess Morbid obesity Muscle spasm Noncompliance with CPAP treatment Obesity (BMI 30-39.9) Obstructive sleep apnea On home O2 Osteopenia Osteoporosis Overactive bladder Paroxysmal atrial fibrillation Pneumonia Right bundle branch block (RBBB) Sarcoidosis Secondary pulmonary arterial hypertension Type 2 diabetes mellitus Venous insufficiency of both lower extremities Home Medications alendronate 70 mg PO MO 06/21/17 [History Last Taken 11/12/20] fluticasone propionate 2 spray NASAL DAILY PRN PRN 06/21/17 [History Last Taken 11/19/20] febuxostat 40 mg PO DAILY 12/30/18 [History Last Taken 11/19/20] cholecalciferol (vitamin D3) 1,000 unit PO DAILY 04/16/20 [History Last Taken 11/19/20] fenofibric acid (choline) 135 mg capsule,delayed release 135 mg PO DAILY 07/17/20 [History Last Taken 11/18/20] fluticasone 500 mcg-salmeterol 50 mcg/dose blistr powdr for inhalation 1 inh INHALATION BID 07/17/20 [History Last Taken 11/19/20] sitagliptin 50 mg tablet 50 mg PO DAILY 07/17/20 [History Last Taken 11/19/20] tiotropium bromide 1.25 mcg/actuation mist for inhalation 2 puff INHALATION DAILY 07/17/20 [History Last Taken 11/19/20] insulin glargine 45 unit SC QPM 11/19/20 [History Last Taken 11/19/20] montelukast 10 mg PO QHS 11/19/20 [History Last Taken 11/18/20] menthol-zinc oxide 1 applic TOPICAL 0600,2200 tube 12/05/20 [Rx Last Taken Unknown] polyethylene glycol 3350 17 gm PO BID #60 packet 12/05/20 [Rx Last Taken Unknown] tramadol 50 mg PO Q8H PRN #9 tab 12/05/20 [Rx Last Taken Unknown] acetaminophen 650 mg tablet,extended release 1,300 mg PO Q12H tab 02/08/21 [History Last Taken Unknown] albuterol sulfate 90 mcg/actuation aerosol inhaler 2 puff INHALATION Q4H PRN g 02/08/21 [History Last Taken Unknown] ammonium lactate 12 % topical cream 1 applic TOPICAL DAILY 02/08/21 [History Last Taken Unknown] aspirin 81 mg tablet,delayed release 81 mg PO DAILY #1 tab 02/08/21 [Rx Last Taken Unknown] cimetidine 200 mg tablet 200 mg PO DAILY 02/08/21 [History Last Taken Unknown] conjugated estrogens 0.625 mg/gram vaginal cream 0.625 mg VAGINAL .COMPLEX 02/08/21 [History Last Taken Unknown] cyanocobalamin (vitamin B-12) 1,000 mcg tablet 1,000 mcg PO DAILY tab 02/08/21 [History Last Taken Unknown] fluconazole 150 mg tablet 150 mg PO Q3D PRN 02/08/21 [History Last Taken Unknown] loratadine 10 mg tablet 10 mg PO DAILY tab 02/08/21 [History Last Taken Unknown] mirabegron 50 mg tablet,extended release 24 hr 50 mg PO DAILY tab 02/08/21 [History Last Taken Unknown] nystatin 100,000 unit/gram topical powder 1 applic TOPICAL 0600,2200 PRN bottle 02/08/21 [History Last Taken Unknown] pantoprazole 40 mg tablet,delayed release 40 mg PO BID tab 02/08/21 [History Last Taken Unknown] sennosides 8.6 mg-docusate sodium 50 mg tablet 2 tab PO DAILY PRN tab 02/08/21 [History Last Taken Unknown] triamterene 37.5 mg-hydrochlorothiazide 25 mg tablet 1 tab PO DAILY tab 02/08/21 [History Last Taken Unknown] losartan 50 mg tablet 100 mg PO DAILY tab 07/02/21 [History Last Taken Unknown] Allergy/AdvReac Type Severity Reaction Status Date / Time clindamycin Allergy Rash Verified 07/05/21 09:21 insulin detemir Allergy Rash Verified 07/05/21 09:21 [From Levemir U-100 Insulin] ciprofloxacin AdvReac Mild Upset Verified 07/05/21 09:21 Stomach amoxicillin trihydrate AdvReac Nausea Verified 07/05/21 09:21 [From Augmentin] morphine AdvReac Nausea Verified 07/05/21 09:21 potassium clavulanate AdvReac Nausea Verified 07/05/21 09:21 [From Augmentin] Family History Father Hypertension Colon cancer Cancer lung Mother Hypertension Heart disease Diabetes Surgical History History of cholecystectomy History of knee replacement procedure of left knee History of laminectomy History of right and left heart catheterization (05/04/20) Social History Smoking Status: Former smoker how long ago did patient quit smokin years ago alcohol intake: never substance use type: does not use caffeine: Yes Type: coffee Number of servings: 2 ROS ROS ED Constitutional Constitutional ED: Denies chills or fever(s) Eyes Eyes: Denies change in vision or diplopia ENT ENT ED: Denies rhinorrhea or sore throat Cardiovascular Cardiovascular: Denies chest pain or palpitations Respiratory/Chest Respiratory/Chest: Denies cough or dyspnea Gastrointestinal Gastrointestinal: Reports as per HPI and abdominal pain; Denies diarrhea, melena, nausea, rectal bleeding or vomiting Genitourinary Genitourinary ED: Reports urinary frequency; Denies dysuria or hematuria Musculoskeletal Musculoskeletal: Denies back pain or neck pain Integumentary Reports as per HPI and rash; Denies abscess Neurologic Neurologic: Denies headache(s), paresthesias or weakness Psychiatric Psychiatric: Denies anxiety or suicidal thoughts EXAM Physical Exam Const Vital Signs: 07/05/21 09:22 Temperature 97.5 F L Temperature Source Temporal Pulse Rate 81 Respiratory Rate 16 Blood Pressure 174/74 H Blood Pressure Mean 107 Pulse Ox 96 Oxygen Delivery Method Nasal Cannula Oxygen Flow Rate (L/min) 2 Positive well nourished, well developed and obese Constitutional Narrative: No distress, conversive in full sentences General Appearance ED: well developed and NAD Nutritional Appearance: obese HEENT Reports moist mucous membranes normocephalic and atraumatic Eyes PERRL and EOMs intact bilaterally Neck full ROM and supple Resp normal respiratory effort and clear to auscultation bilaterally Cardio regular rate, regular rhythm and no murmurs GI Inspection: abdominal distention; Negative for abdominal aortic bruit Auscultation: hypoactive bowel sounds Palpation: soft and tender other (Diffusely mildly tender without guarding or rebound tenderness); Negative for pulsatile mass Back/Spine no CVA tenderness General Back: other FROM Extremity normal to inspection and full ROM General Extremety ED: Yes edema; Negative for pulses abnormal or tenderness General Extremity: edema bilateral lower extremity Details: mild (Patient has compression stockings on in place. Extremities appear symmetrically edematous.); Negative for pulses abnormal Neuro oriented x3, CN's II-XII intact bilaterally, no sensory deficits noted and gait normal Sensorium / Orientation: awake and alert Motor Exam: strength 5/5 throughout Skin no wounds Skin Narrative: Several patches of tender erythematous mostly nonraised lesions consistent with zoster on the right upper flank, dermatome approximately T8 on right. MDM MDM MDM Narrative Medical decision making narrative: CT was obtained, it shows significant stool burden throughout the colon. Patient states she is having what feels like spasms of pain. She said she had a large bowel movement this morning, and is surprised by these findings as there is nothing else acute and she already knew about the stone in her right kidney that is nonobstructing. Reassured about the other testing and findings, I advise doing sort of a colon cleanse. She states she takes MiraLAX every day, I will give her a bottle of magnesium citrate with instructions for use, and follow-up advised. Gave her a Bentyl prior to discharge to help with the spasms which may be colonic spasm. Lab Data Attestation: I reviewed the patient's lab results. Labs: Laboratory Results - last 24 hr 07/05/21 07/05/21 07/05/21 10:17 10:40 10:40 WBC 8.2 RBC 4.14 L Hgb 12.4 Hct 40.5 MCV 97.8 MCH 30.0 MCHC 30.6 L RDW Std Deviation 54.4 H RDW Coeff of Jazzmine 15.1 H Plt Count 248 MPV 9.4 Neut % (Auto) Not Reportable Absolute Neuts (auto) 5.6 Absolute Lymphs (auto) 1.72 Total Counted 100 Neutrophils % (Manual) 67 Band Neutrophils % 1 Lymphocytes % (Manual) 21 Monocytes % (Manual) 1 Basophils % (Manual) 2 H Metamyelocytes % 7 H Myelocytes % 1 H Diff Path Review May foll Platelet Estimate ADEQUATE RBC Morphology N CYTIC Hypochromasia 1+ Sodium 140 Potassium 4.1 Chloride 106 Carbon Dioxide 30.0 Anion Gap 4 L BUN 42 H Creatinine 1.70 H Estim Creat Clear Calc 45.41 Est GFR (MDRD) Af Amer 38 L Est GFR (MDRD) Non-Af 32 L BUN/Creatinine Ratio 24.7 H Glucose 104 Calcium 10.4 H Total Bilirubin 0.60 AST 22 ALT 36 Alkaline Phosphatase 43 L Troponin I High Sens 10.7 Total Protein 7.1 Albumin 3.7 Globulin 3.4 Albumin/Globulin Ratio 1.1 Lipase 146 Urine Color Straw Urine Clarity Sl. Cloudy Urine pH 7.0 Ur Specific [place] 1.010 Urine Protein Negative Urine Glucose (UA) Normal Urine Ketones Negative Urine Occult Blood Negative Urine Nitrite Negative Urine Bilirubin Negative Urine Urobilinogen Normal Ur Leukocyte Esterase Negative Urine RBC 0 SEEN Urine WBC 0 SEEN Ur Squamous Epith Cells 0-5 SEEN Urine Bacteria 0 SEEN Urine Mucus 0 SEEN POC Glucose 07/05/21 12:08 WBC RBC Hgb Hct MCV MCH MCHC RDW Std Deviation RDW Coeff of Jazzmine Plt Count MPV Neut % (Auto) Absolute Neuts (auto) Absolute Lymphs (auto) Total Counted Neutrophils % (Manual) Band Neutrophils % Lymphocytes % (Manual) Monocytes % (Manual) Basophils % (Manual) Metamyelocytes % Myelocytes % Diff Path Review Platelet Estimate RBC Morphology Hypochromasia Sodium Potassium Chloride Carbon Dioxide Anion Gap BUN Creatinine Estim Creat Clear Calc Est GFR (MDRD) Af Amer Est GFR (MDRD) Non-Af BUN/Creatinine Ratio Glucose Calcium Total Bilirubin AST ALT Alkaline Phosphatase Troponin I High Sens Total Protein Albumin Globulin Albumin/Globulin Ratio Lipase Urine Color Urine Clarity Urine pH Ur Specific [place] Urine Protein Urine Glucose (UA) Urine Ketones Urine Occult Blood Urine Nitrite Urine Bilirubin Urine Urobilinogen Ur Leukocyte Esterase Urine RBC Urine WBC Ur Squamous Epith Cells Urine Bacteria Urine Mucus POC Glucose 83 Radiography Diagnostic Testing: Radiology Impression Abdomen/Pelvis CT 07/05/21 10:03 IMPRESSION: 1. 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 The right kidney contains a 3 mm nonobstructing calyceal calculus. 2. A large amount of fecal material is noted within the colon. Electronically Signed: Romel Crum DO at 12:02 EDT Tel , Service support , EKG Initial EKG: Attestation: I personally reviewed and interpreted this EKG as follows: Interpretation: Sinus Rhythm, No Acute Injury Pattern and RBBB Prior EKG tracings: available for review Prior: Unchanged Discharge Plan Triage Chief Complaint: Abd Pain ED Provider: Rafael Gates Dx/Rx/DC Orders Clinical Impression: Abdominal distension, Fecal retention, Abdominal pain, diffuse Instructions: ED Constipation (Adult) Prescriptions: No Action Spiriva Respimat 1.25 mcg/actuation mist 2 puff INHALATION DAILY RF: 0 Januvia 50 mg tablet 50 mg PO DAILY RF: 0 fluticasone propion-salmeterol [Advair Diskus] 500-50 mcg/dose blister with device 1 inh INHALATION BID RF: 0 fenofibric acid (choline) [Trilipix] 135 mg capsule,delayed release(DR/EC) 135 mg PO DAILY RF: 0 Premarin 0.625 mg/gram cream 0.625 mg VAGINAL .COMPLEX RF: 0 mirabegron 50 mg tablet extended release 24 hr 50 mg PO DAILY RF: 0 fluconazole 150 mg tablet 150 mg PO Q3D PRNRF: 0 albuterol sulfate 90 mcg/actuation HFA aerosol inhaler 2 puff INHALATION Q4H PRNRF: 0 triamterene-hydrochlorothiazid 37.5-25 mg tablet 1 tab PO DAILY RF: 0 ammonium lactate 12 % cream 1 applic TOPICAL DAILY RF: 0 loratadine 10 mg tablet 10 mg PO DAILY RF: 0 sennosides-docusate sodium 8.6-50 mg tablet 2 tab PO DAILY PRN (Reason: Constipation) RF: 0 acetaminophen [Tylenol Arthritis Pain] 650 mg tablet extended release 1,300 mg PO Q12H RF: 0 nystatin 100,000 unit/gram powder 1 applic TOPICAL 0600,2200 PRNRF: 0 aspirin 81 mg tablet,delayed release (DR/EC) 81 mg PO DAILY Qty: 1 RF: 0 alendronate 70 MG tablet 70 mg PO MO RF: 0 fluticasone propionate 1 SPRAY spray,suspension 2 spray NASAL DAILY PRN PRN (Reason: Congestion) RF: 0 febuxostat 40 MG tablet 40 mg PO DAILY RF: 0 cholecalciferol (vitamin D3) 1,000 UNIT tablet 1,000 unit PO DAILY RF: 0 cyanocobalamin (vitamin B-12) 1,000 mcg tablet 1,000 mcg PO DAILY RF: 0 montelukast 10 MG tablet 10 mg PO QHS RF: 0 insulin glargine 100 UNITS/ML insulin pen 45 unit SC QPM RF: 0 cimetidine 200 mg tablet 200 mg PO DAILY RF: 0 pantoprazole 40 mg tablet,delayed release (DR/EC) 40 mg PO BID RF: 0 tramadol 50 MG tablet 50 mg PO Q8H PRN (Reason: Pain Score 4-5) Qty: 9 RF: 0 menthol-zinc oxide 1 APPLIC ointment 1 applic TOPICAL 0600,2200 RF: 0 polyethylene glycol 3350 17 GM packet 17 gm PO BID Qty: 60 RF: 0 losartan 50 mg tablet 100 mg PO DAILY RF: 0 Primary Care Provider: Veronica Oquendo Referrals: Veronica Oquendo, [Primary Care Provider] - 3-5 Days if not improving Activity Restrictions/Additional Instructions: To do a semi-colon cleanse, take half of the bottle of magnesium citrate fol lowed by plenty of fluids. If you do not have a good bowel movement in 24 hours repeat. Skip MiraLAX the day you do the magnesium citrate. Disposition Disposition: Home, Self Care
--- NOTE | 2021-07-05 10:05 | EKG12_ITS ---
Test Reason : Blood Pressure : / mmHG Vent. Rate : 075 BPM Atrial Rate : 075 BPM P-R Int : 162 ms QRS Dur : 156 ms QT Int : 416 ms P-R-T Axes : 059 113 029 degrees QTc Int : 464 ms Normal sinus rhythm with sinus arrhythmia Right bundle branch block Septal infarct , age undetermined Abnormal ECG Confirmed by QUANG FELIX, JOSE LUIS ([id number]), desk editor KATHI COLBERT ([id number]) on 07/09/2021 8:53:30 AM Referred By: SPEEDY Confirmed By:JOSE LUIS DEL RIO MD
[2021-07-05 10:48] LABS: Hematocrit 40.5 % (37-47); Hemoglobin 12.4 g/dL (12.0-15.0); Mean Corp Hgb Conc 30.6 g/dL (32-36); Mean Corpuscular Volume 97.8 fL (81-99); Mean Platelet Vol. 9.4 fl (6.2-12.0); POSITIVE COUNT YES; POSITIVE MORPHOLOGY YES; Platelet Count 248 K/mm3 (150-450); RBC Distribution Width CV 15.1 % (11.6-14.6); RBC Distribution Width SD 54.4 fl (35.1-43.9); Red Blood Count 4.14 M/mm3 (4.2-5.4); White Blood Count 8.2 K/mm3 (4.4-11.0)
[2021-07-05 10:50] LABS: Differential Indicated MANUAL DIFF
[2021-07-05 11:05] LABS: ALB/GLOB Ratio 1.1 RATIO (0.9-2.4); AST(SGOT) 22 U/L (15-37); Alanine Aminotransfer ALT/SGPT 36 U/L (13-56); Albumin, Serum 3.7 g/dL (3.2-5.0); Alkaline Phosphatase 43 U/L (45-117); Anion Gap 4 (5-15); BUN 42 mg/dL (7-18); BUN/Creat Ratio 24.7 RATIO (10-20); Calcium,Total 10.4 mg/dL (8.5-10.1); Chloride 106 mmol/L (98-107); EST Glomerular Filtration Rate 32 mL/min (>60); Est Glom Filt Rate - Afr Amer 38 mL/min (>60); Estimated Creatinine Clearance 45.41 ml/min; Globulin 3.4 g/dL (2.2-4.2); Glucose 104 mg/dL (74-106); Lipase 146 U/L (73-393); Potassium 4.1 mmol/L (3.5-5.1); Protein, Total 7.1 g/dL (6.4-8.2); Sodium Level 140 mmol/L (136-145); Troponin-I HS 10.7 pg/mL (3.0-53.7)
[2021-07-05 11:18] LABS: Bacteria 0 SEEN /hpf (None Seen); Mucous, Urine 0 SEEN /hpf (<or=2+); Red Blood Cells-Urine 0 SEEN /hpf (0-5); White Blood Cells 0 SEEN /hpf (0-5)
[2021-07-05 11:19] LABS: Basophil 2 % (0-1); Lymphocyte 21 % (19-41); Metamyelocyte 7 % (0-1); Monocyte 1 % (0-10); Myelocyte 1 % (0-0); Neutrophil-Band 1 % (0-5); Neutrophil-Segmented 67 % (47-70); Total Cells Counted 100 (MANUAL DIFF)
[2021-07-05 11:20] LABS: Absolute Neutrophil Count 5.6 X10^3/uL (2.0-7.7); Hypochromasia 1+; Neutrophil # 5.57 X10^3/uL (2.7-7.7); Platelet Estimate ADEQUATE (ADEQ); Red Cell Morphology N CYTIC NORMAL (NORM C&C)
[2021-07-05 11:21] LABS: Absolute Lymphocyte Count 1.72 X10^3/uL (0.83-4.51); Lymphocyte # 1.72 X10^3/ul (0.83-4.51)
[2021-07-05 11:28] LABS: Color, Urine Straw (Yellow); Glucose, Dipstick Normal (Normal); Ketone-Dipstick Negative (Negative); Leukocyte Esterase-Dipstick Negative /ul (Negative); Nitrite-Dipstick Negative (Negative); Occult Blood-Urine Negative /ul (Negative); Protein-Dipstick Negative (Negative); Urine Bilirubin Dipstick Negative (Negative); Urine Clarity Sl. Cloudy (Clear); Urine Urobilinogen Normal (Normal)
[2021-07-05 11:34] LABS: Squamous Epithelial Cells - UA 0-5 SEEN /hpf (5-10)
[2021-07-05 12:15] LABS: Bedside Glucose 83 mg/dL (70-110)
[2021-07-05] MEDS: Dicyclomine 10 MG Capsule 20 MG PO (13:05)
[2021-07-05] MEDS: Magnesium Citrate 300 ML 150 ML PO (13:16)
[2021-07-05 13:20] VITALS: BP 154/74; PULSE 78; RESP 16; O2SAT 98
[2021-07-08 14:38] LABS: Pathologist Review Reviewed
== END 2021-07-05 13:22 | disposition home or self-care (01) ==
PROVIDERS: Emergency Provider Emergency Medicine; PCP Internal Medicine
DX: R14.0 Abdominal distension (gaseous) (principal); K59.00 Constipation, unspecified; R10.84 Generalized abdominal pain; B02.9 Zoster without complications; R35.0 Frequency of micturition; I48.0 Paroxysmal atrial fibrillation; D86.9 Sarcoidosis, unspecified; E11.22 Type 2 diabetes mellitus with diabetic chronic kidney disease; I12.9 Hypertensive chronic kidney disease with stage 1 through stage 4 chronic kidney disease, or unspecified chronic kidney disease; N18.30 Chronic kidney disease, stage 3 unspecified; I27.21 Secondary pulmonary arterial hypertension; J44.9 Chronic obstructive pulmonary disease, unspecified; E78.5 Hyperlipidemia, unspecified; G47.33 Obstructive sleep apnea (adult) (pediatric); R13.10 Dysphagia, unspecified; N32.81 Overactive bladder; M10.9 Gout, unspecified; M85.80 Other specified disorders of bone density and structure, unspecified site; E66.01 Morbid (severe) obesity due to excess calories; Z91.19 Patient's noncompliance with other medical treatment and regimen; Z79.4 Long term (current) use of insulin; Z79.51 Long term (current) use of inhaled steroids; Z79.82 Long term (current) use of aspirin; Z87.891 Personal history of nicotine dependence
CPT/HCPCS: 74177; 80053; 81001; 82962; 83690; 84484; 85025; 93005; 99285; Q9967; A4216

== ENCOUNTER → 2021-07-17 11:11 | Outpatient (CLI) | payer MEDICARE, OTHER, SELFPAY ==
[2021-07-17 13:13] LABS: Anion Gap 9 (5-15); BUN 26 mg/dL (7-18); BUN/Creat Ratio 15.4 RATIO (10-20); Calcium,Total 10.4 mg/dL (8.5-10.1); Chloride 105 mmol/L (98-107); Creatinine, Serum 1.69 mg/dL (0.55-1.02); EST Glomerular Filtration Rate 32 mL/min (>60); Est Glom Filt Rate - Afr Amer 38 mL/min (>60); Glucose 143 mg/dL (74-106); Potassium 4.2 mmol/L (3.5-5.1); Sodium Level 141 mmol/L (136-145)
== END ==
PROVIDERS: PCP Internal Medicine; Referring Provider Physician Assistant Medical; Visit Provider Physician Assistant Medical
DX: I12.9 Hypertensive chronic kidney disease with stage 1 through stage 4 chronic kidney disease, or unspecified chronic kidney disease (principal); N18.9 Chronic kidney disease, unspecified; I48.0 Paroxysmal atrial fibrillation
CPT/HCPCS: 36415; 80048

== ENCOUNTER → 2021-08-06 13:02 | Outpatient (CLI) | payer MEDICARE, OTHER, SELFPAY ==
[2021-03-22 14:52] VITALS: BMI 41.3
--- NOTE | 2021-08-06 13:04 | CT_ITS ---
STUDY: LOW DOSE CT LUNG CANCER SCREENING REASON FOR EXAM: Female, 70 years old. Patient smoked 1 pack per day for 16 years. History of sarcoidosis. RADIATION DOSAGE (If Supplied By Facility): CTDIvol = ( 3.18 ) mGy, DLP = ( 98.87 ) mGycm TECHNIQUE: No contrast was administered. Low dose technique was utilized (average mAS-38 and kVp 120). 1.25 mm axial source images with a slice interval of 1.25-mm were reconstructed in lung windows. 2.5 mm axial source images with a slice interval of 2.5-mm were reconstructed in lung windows. 5.0 mm axial source images with a slice interval of 5.0-mm were reconstructed in soft tissue windows. Nodule measured using lung windows on PACS and/or independent workstation with automated measurement of minimum and maximum diameter. Nodule measurement reported as average diameter rounded to the nearest whole number. Growth is defined as an increase ins size of greater than 1.5 mm. COMPARISON: Comparison is made with prior examination dated 08/03/2020. NODULES: Stable 2.2 cm x 1.4 cm lobulated nodule in the peripheral lateral aspect of the left lower lobe. This is pleural-based. Scattered bilateral calcified granulomas. Emphysema: Stable scarring in both upper lobes more prominent in the left upper lobe. Mild degree of scarring at the lung bases. Endobronchial lesion: None Aorta: Atherosclerotic plaque formation. Coronary arteries: Coronary artery calcification. Mediastinal nodes: Multiple calcified mediastinal and bilateral hilar lymph nodes. Other chest and abdominal findings: Degenerative changes of the thoracic spine. CT/Low Dose CT Lung Screening IMPRESSION: Lung-RADS category 2 - Continue annual screening with LDCT in 12 months. IMPORTANT NOTES FOR USE: ACR Lung-RADS Version 1.1 Assessment Categories Release Date: 2018 Category: Coded 0-4 bases on nodule(s) with highest degree of suspicion. Negative screen is defined as categories 1 and 2; a positive screen is defined as categories 3 and 4. Category 3 and 4A nodules that are unchanged on interval CT should be coded as category 2, and individuals returned to screening in 12 months. Category 4X: Category 3 or 4 nodules with additional imaging findings that increase the suspicion of lung cancer, such as spiculation, GGN that doubles in size in 1 year, enlarged lymph notes, etc. Category Modifiers: S (significant finding unrelated to lung cancer) Electronically Signed: Anam Larios MD at 14:02 EDT , Service support ,
== END ==
PROVIDERS: PCP Internal Medicine; Referring Provider Internal Medicine Pulmonary Disease; Visit Provider Internal Medicine Pulmonary Disease
DX: J85.2 Abscess of lung without pneumonia (principal); Z87.891 Personal history of nicotine dependence
CPT/HCPCS: 71271

== ENCOUNTER 2021-08-08 11:17 | Emergency (ER) | payer MEDICARE, OTHER, SELFPAY ==
[2021-08-08 11:18] VITALS: BP 145/66; PULSE 77; RESP 20; TEMP 36.4; O2SAT 97; BMI 93.0
--- NOTE | 2021-08-08 13:44 | EKG12_ITS ---
Test Reason : GEN ILLNESS Blood Pressure : / mmHG Vent. Rate : 081 BPM Atrial Rate : 081 BPM P-R Int : 164 ms QRS Dur : 146 ms QT Int : 440 ms P-R-T Axes : 050 117 019 degrees QTc Int : 511 ms Sinus rhythm with Premature supraventricular complexes Right bundle branch block Septal infarct , age undetermined Abnormal ECG Confirmed by IRA FELIX, KEREN ([id number]), editor & co founder KATHI COLBERT ([id number]) on 08/12/2021 11:32:10 AM Referred By: ARYA Confirmed By:KEREN ROTH MD
--- NOTE | 2021-08-08 14:04 | EX.ED.DYSGE1 ---
HPI History of Present Illness Chief Complaint: General Illness Narrative Narrative: Patient is a 70-year-old female with past medical history of sarcoidosis who states she wears nasal cannula oxygen 22/06. She states she has been feeling generally unwell with congestion sore throat and cough. She states her family doctor placed her on antibiotics and she felt better for 1 to 2 days but then had return of her symptoms. She states that this time she has some chest discomfort and overall fatigue and feels like she is not caring for herself well at home and with her worsening symptoms comes in for evaluation [facility] Medical History Allergic rhinitis Asthma Chronic kidney disease Chronic obstructive lung disease Chronic renal failure, stage 3 (moderate) Compression fracture of L1 vertebra Constipation Debility Diabetes Diabetes mellitus type 2 in obese Dysphagia Essential (primary) hypertension GERD (gastroesophageal reflux disease) Gout Hyperlipidemia Hyperuricemia Intractable low back pain L1 vertebral fracture Leukocytosis Lung abscess Morbid obesity Muscle spasm Noncompliance with CPAP treatment Obesity Obesity (BMI 30-39.9) Obstructive sleep apnea On home O2 Osteopenia Osteoporosis Osteoporosis Overactive bladder Paroxysmal atrial fibrillation Pneumonia Right bundle branch block (RBBB) Sarcoidosis Secondary pulmonary arterial hypertension Type 2 diabetes mellitus Venous insufficiency of both lower extremities Home Medications fluticasone propionate 2 spray NASAL DAILY PRN PRN 06/21/17 [History Last Taken 11/19/20] febuxostat 40 mg PO DAILY 12/30/18 [History Last Taken 11/19/20] fenofibric acid (choline) 135 mg capsule,delayed release 135 mg PO DAILY 07/17/20 [History Last Taken 11/18/20] fluticasone 500 mcg-salmeterol 50 mcg/dose blistr powdr for inhalation 1 inh INHALATION BID 07/17/20 [History Last Taken 11/19/20] sitagliptin 50 mg tablet 50 mg PO DAILY 07/17/20 [History Last Taken 11/19/20] tiotropium bromide 1.25 mcg/actuation mist for inhalation 2 puff INHALATION DAILY 07/17/20 [History Last Taken 11/19/20] insulin glargine 45 unit SC QPM 11/19/20 [History Last Taken 11/19/20] montelukast 10 mg PO QHS 11/19/20 [History Last Taken 11/18/20] menthol-zinc oxide 1 applic TOPICAL 0600,2200 tube 12/05/20 [Rx Last Taken Unknown] polyethylene glycol 3350 17 gm PO BID #60 packet 12/05/20 [Rx Last Taken Unknown] tramadol 50 mg PO Q8H PRN #9 tab 12/05/20 [Rx Last Taken Unknown] acetaminophen 650 mg tablet,extended release 1,300 mg PO Q12H tab 02/08/21 [History Last Taken Unknown] albuterol sulfate 90 mcg/actuation aerosol inhaler 2 puff INHALATION Q4H PRN g 02/08/21 [History Last Taken Unknown] ammonium lactate 12 % topical cream 1 applic TOPICAL DAILY PRN 02/08/21 [History Last Taken Unknown] aspirin 81 mg tablet,delayed release 81 mg PO DAILY #1 tab 02/08/21 [Rx Last Taken Unknown] cimetidine 200 mg tablet 200 mg PO DAILY 02/08/21 [History Last Taken Unknown] cyanocobalamin (vitamin B-12) 1,000 mcg tablet 1,000 mcg PO DAILY tab 02/08/21 [History Last Taken Unknown] fluconazole 150 mg tablet 150 mg PO Q3D PRN 02/08/21 [History Last Taken Unknown] loratadine 10 mg tablet 10 mg PO DAILY tab 02/08/21 [History Last Taken Unknown] mirabegron 50 mg tablet,extended release 24 hr 50 mg PO DAILY tab 02/08/21 [History Last Taken Unknown] nystatin 100,000 unit/gram topical powder 1 applic TOPICAL 0600,2200 PRN bottle 02/08/21 [History Last Taken Unknown] pantoprazole 40 mg tablet,delayed release 40 mg PO BID tab 02/08/21 [History Last Taken Unknown] sennosides 8.6 mg-docusate sodium 50 mg tablet 2 tab PO DAILY PRN tab 02/08/21 [History Last Taken Unknown] triamterene 37.5 mg-hydrochlorothiazide 25 mg tablet 1 tab PO DAILY tab 02/08/21 [History Last Taken Unknown] losartan 50 mg tablet 100 mg PO DAILY tab 07/02/21 [History Last Taken Unknown] cholecalciferol (vitamin D3) 25 mcg (1,000 unit) tablet 5,000 unit PO DAILY tab 07/22/21 [History Last Taken Unknown] insulin aspart U-100 100 unit/mL (3 mL) subcutaneous pen 8 unit SUBCUT BREAKFAST ml 07/22/21 [History Last Taken Unknown] insulin aspart U-100 [Novolog Flexpen U-100 Insulin] 8 unit SUBCUT LUNCH 08/08/21 [History Last Taken Unknown] insulin aspart U-100 [Novolog Flexpen U-100 Insulin] 14 unit SUBCUT DINNER 08/08/21 [History Last Taken Unknown] levofloxacin 1 mg PO DAILY 08/08/21 [History Last Taken Unknown] Allergy/AdvReac Type Severity Reaction Status Date / Time clindamycin Allergy Rash Verified 08/08/21 11:21 insulin detemir Allergy Rash Verified 08/08/21 11:21 [From Levemir U-100 Insulin] ciprofloxacin AdvReac Mild Upset Verified 08/08/21 11:21 Stomach amoxicillin trihydrate AdvReac Nausea Verified 08/08/21 11:21 [From Augmentin] morphine AdvReac Nausea Verified 08/08/21 11:21 potassium clavulanate AdvReac Nausea Verified 08/08/21 11:21 [From Augmentin] Family History Father Hypertension Colon cancer Cancer lung Mother Hypertension Heart disease Diabetes Surgical History History of cholecystectomy History of knee replacement procedure of left knee History of laminectomy History of right and left heart catheterization (05/04/20) Social History Smoking Status: Former smoker how long ago did patient quit smokin years ago alcohol intake: never substance use type: does not use caffeine: Yes Type: coffee Number of servings: 2 ROS ROS ED Constitutional Constitutional ED: Denies chills or fever(s) ENT ENT ED: Reports rhinorrhea and sore throat Cardiovascular Cardiovascular: Reports chest pain Respiratory/Chest Respiratory/Chest: Reports cough, dyspnea and sputum Gastrointestinal Gastrointestinal: Denies abdominal pain, diarrhea, nausea or vomiting Genitourinary Genitourinary ED: Denies dysuria Musculoskeletal Musculoskeletal: Reports myalgias Integumentary Denies rash Neurologic Neurologic: Denies headache(s) Hematologic/Lymphatic Hematologic/Lymphatic: Denies easy bleeding or easy bruising Allergic/Immunologic Allergic/Immunologic ED: Denies mouth swelling EXAM Physical Exam Const Vital Signs: 08/08/21 11:18 08/08/21 14:41 Temperature 97.6 F L 98.0 F Temperature Source Temporal Oral Pulse Rate 77 97 Respiratory Rate 20 H 16 Blood Pressure 145/66 H 149/64 H Blood Pressure Mean 92 92 Pulse Ox 97 95 Oxygen Delivery Method Nasal Cannula Nasal Cannula Oxygen Flow Rate (L/min) 2 2 Positive well nourished, well developed and obese General Appearance ED: well developed Nutritional Appearance: obese HEENT Reports moist mucous membranes HEENT Narrative: Cobblestoning the posterior pharynx consistent with sinus drainage. There are also a small amount of scattered white plaques in the buccal mucosa most consistent with thrush. No tongue or lip swelling no airway edema or compromise Eyes PERRL and EOMs intact bilaterally Neck supple and no JVD Neck Narrative: Positive anterior cervical lymphadenopathy Chest Wall Chest Narrative: Mild reproducible pain with the midsternal to left anterior chest wall without bony deformity or crepitance Resp Resp Narrative: Breath sounds are diminished throughout with scattered expiratory wheeze and rhonchi in the bilateral bases but no signs of respiratory distress Cardio regular rate and regular rhythm GI normal to inspection, nondistended, normoactive bowel sounds, non-tender and non-distended GI Narrative: No voluntary guarding or rigidity no pulsatile mass Auscultation: normoactive bowel sounds Palpation: soft Extremity normal to inspection Extremity Narrative: Trace to +1 pitting edema to the bilateral lower extremities is equal and symmetric negative Homans' sign bilaterally Neuro oriented x3 and CN's II-XII intact bilaterally Sensorium / Orientation: alert Psych mental status grossly normal Skin no rashes or lesions noted MDM MDM MDM Narrative Medical decision making narrative: Patient presented to the ER afebrile with no signs of respiratory distress and satting in the high 90s on her normal oxygen. As she reported worsening symptoms there is concern she developed a secondary pneumonia or had failure of outpatient treatment and therefore a basic work-up was obtained. I discussed obtaining a Covid swab today but patient states she does not have concern for this and does not want 1 obtain. She reports she had a CT scan just 2 days ago and therefore does not want any further imaging as well. The blood work revealed chronic changes that are near patient's baseline but no signs of congestive heart failure or acute kidney injury or severe electrolyte abnormality. Her CT revealed a mass which is stable since 2019 without secondary changes to suggest infection. Therefore at this time as patient has no signs of distress and overall negative work-up I do feel she has a viral infection but does not need placed in the hospital and will be discharged home Lab Data Labs: Laboratory Results - last 24 hr 08/08/21 08/08/21 08/08/21 14:12 14:12 14:12 WBC 11.2 H RBC 4.43 Hgb 13.6 Hct 43.4 MCV 98.0 MCH 30.7 MCHC 31.3 L RDW Std Deviation 53.2 H RDW Coeff of Jazzmine 14.6 Plt Count 235 MPV 9.5 Immature Gran % (Auto) 4.900 H Neut % (Auto) 72.1 H Lymph % (Auto) 9.1 L Cotton % (Auto) 10.6 H Eos % (Auto) 2.1 Baso % (Auto) 1.2 H Absolute Neuts (auto) 8.1 H Absolute Lymphs (auto) 1.02 Nucleated RBC % 0 Sodium 139 Potassium 4.1 Chloride 104 Carbon Dioxide 30.0 Anion Gap 5 BUN 42 H Creatinine 1.87 H Estim Creat Clear Calc 92.36 Est GFR (MDRD) Af Amer 34 L Est GFR (MDRD) Non-Af 28 L BUN/Creatinine Ratio 22.5 H Glucose 144 H Calcium 10.4 H Magnesium 1.9 Troponin I High Sens 13 B-Natriuretic Peptide 28.5 Discharge Plan Triage Chief Complaint: General Illness ED Provider: Miguel Angel Campbell Dx/Rx/DC Orders Clinical Impression: Acute upper respiratory infection Instructions: ED URI, Viral W/ Wheezing (Adult) Prescriptions: No Action Spiriva Respimat 1.25 mcg/actuation mist 2 puff INHALATION DAILY RF: 0 Januvia 50 mg tablet 50 mg PO DAILY RF: 0 fluticasone propion-salmeterol [Advair Diskus] 500-50 mcg/dose blister with device 1 inh INHALATION BID RF: 0 fenofibric acid (choline) [Trilipix] 135 mg capsule,delayed release(DR/EC) 135 mg PO DAILY RF: 0 mirabegron 50 mg tablet extended release 24 hr 50 mg PO DAILY RF: 0 fluconazole 150 mg tablet 150 mg PO Q3D PRN (Reason: yeast) RF: 0 albuterol sulfate 90 mcg/actuation HFA aerosol inhaler 2 puff INHALATION Q4H PRN (Reason: sob) RF: 0 triamterene-hydrochlorothiazid 37.5-25 mg tablet 1 tab PO DAILY RF: 0 ammonium lactate 12 % cream 1 applic TOPICAL DAILY PRN (Reason: Dry Skin) RF: 0 loratadine 10 mg tablet 10 mg PO DAILY RF: 0 sennosides-docusate sodium 8.6-50 mg tablet 2 tab PO DAILY PRN (Reason: Constipation) RF: 0 acetaminophen [Tylenol Arthritis Pain] 650 mg tablet extended release 1,300 mg PO Q12H RF: 0 nystatin 100,000 unit/gram powder 1 applic TOPICAL 00,0 PRN (Reason: skin) RF: 0 aspirin 81 mg tablet,delayed release (DR/EC) 81 mg PO DAILY Qty: 1 RF: 0 insulin aspart U-100 100 unit/mL (3 mL) insulin pen 8 unit subcut BREAKFAST RF: 0 fluticasone propionate 1 SPRAY spray,suspension 2 spray NASAL DAILY PRN PRN (Reason: Congestion) RF: 0 febuxostat 40 MG tablet 40 mg PO DAILY RF: 0 cholecalciferol (vitamin D3) 25 mcg (1,000 unit) tablet 5,000 unit PO DAILY RF: 0 cyanocobalamin (vitamin B-12) 1,000 mcg tablet 1,000 mcg PO DAILY RF: 0 montelukast 10 MG tablet 10 mg PO QHS RF: 0 insulin glargine 100 UNITS/ML insulin pen 45 unit SC QPM RF: 0 cimetidine 200 mg tablet 200 mg PO DAILY RF: 0 pantoprazole 40 mg tablet,delayed release (DR/EC) 40 mg PO BID RF: 0 tramadol 50 MG tablet 50 mg PO Q8H PRN (Reason: Pain Score 4-5) Qty: 9 RF: 0 menthol-zinc oxide 1 APPLIC ointment 1 applic TOPICAL 599,2199 RF: 0 polyethylene glycol 3350 17 GM packet 17 gm PO BID Qty: 60 RF: 0 levofloxacin 750 mg tablet 1 mg PO DAILY RF: 0 insulin aspart U-100 [Novolog Flexpen U-100 Insulin] 100 unit/mL (3 mL) insulin pen 8 unit SUBCUT LUNCH RF: 0 insulin aspart U-100 [Novolog Flexpen U-100 Insulin] 100 unit/mL (3 mL) insulin pen 14 unit SUBCUT DINNER RF: 0 losartan 50 mg tablet 100 mg PO DAILY RF: 0 Primary Care Provider: Veronica Oquendo Referrals: Veronica Oquendo DO [Primary Care Provider] - Disposition Disposition: Home, Self Care
[2021-08-08 14:20] LABS: Absolute Lymphocyte Count 1.02 X10^3/uL (0.83-4.51); Absolute Neutrophil Count 8.1 X10^3/uL (2.0-7.7); Basophil# 0.13 X10^3/uL; Basophil% 1.2 % (0-1); Eosinophil# 0.24 X10^3/uL; Eosinophils% 2.1 % (0-5); Hematocrit 43.4 % (37-47); Hemoglobin 13.6 g/dL (12.0-15.0); Lymphocyte # 1.02 X10^3/ul (0.83-4.51); Lymphocyte % 9.1 % (19-41); Mean Corp Hgb Conc 31.3 g/dL (32-36); Mean Corpuscular Hgb 30.7 pg (27.0-32.0); Mean Platelet Vol. 9.5 fl (6.2-12.0); Monocyte# 1.19 X10^3/uL; Monocyte% 10.6 % (0-10); NRBC Flagged by Analyzer 0 % (0-5); Neutrophil # 8.11 X10^3/uL (2.7-7.7); Neutrophil % 72.1 % (47-70); Platelet Count 235 K/mm3 (150-450); RBC Distribution Width CV 14.6 % (11.6-14.6); RBC Distribution Width SD 53.2 fl (35.1-43.9); Red Blood Count 4.43 M/mm3 (4.2-5.4); White Blood Count 11.2 K/mm3 (4.4-11.0)
[2021-08-08] MEDS: MethylPREDNISolone 125 MG/2 ML Vial IM (14:32)
[2021-08-08 14:41] VITALS: BP 149/64; PULSE 97; RESP 16; TEMP 36.7; O2SAT 95
[2021-08-08 14:42] LABS: Anion Gap 5 (5-15); BUN 42 mg/dL (7-18); BUN/Creat Ratio 22.5 RATIO (10-20); Calcium,Total 10.4 mg/dL (8.5-10.1); Chloride 104 mmol/L (98-107); Creatinine, Serum 1.87 mg/dL (0.55-1.02); EST Glomerular Filtration Rate 28 mL/min (>60); Est Glom Filt Rate - Afr Amer 34 mL/min (>60); Estimated Creatinine Clearance 92.36 ml/min; Glucose 144 mg/dL (74-106); Magnesium 1.9 mg/dL (1.6-2.6); Potassium 4.1 mmol/L (3.5-5.1); Sodium Level 139 mmol/L (136-145); Troponin-I HS 13 pg/mL (3.0-54.0)
[2021-08-08 14:43] LABS: BNP,B-Type NATRIURETIC PEPTIDE 28.5 pg/mL (0-100)
[2021-08-08 16:25] VITALS: BP 138/71; PULSE 88; RESP 19; TEMP 36.7; O2SAT 97
== END 2021-08-08 16:28 | disposition home or self-care (01) ==
PROVIDERS: Emergency Provider Emergency Medicine; PCP Internal Medicine
DX: J06.9 Acute upper respiratory infection, unspecified (principal); R06.2 Wheezing; I12.9 Hypertensive chronic kidney disease with stage 1 through stage 4 chronic kidney disease, or unspecified chronic kidney disease; E11.22 Type 2 diabetes mellitus with diabetic chronic kidney disease; N18.30 Chronic kidney disease, stage 3 unspecified; D86.9 Sarcoidosis, unspecified; I27.21 Secondary pulmonary arterial hypertension; I48.0 Paroxysmal atrial fibrillation; J44.9 Chronic obstructive pulmonary disease, unspecified; E78.5 Hyperlipidemia, unspecified; M10.9 Gout, unspecified; K21.9 Gastro-esophageal reflux disease without esophagitis; G47.33 Obstructive sleep apnea (adult) (pediatric); E66.01 Morbid (severe) obesity due to excess calories; Z68.30 Body mass index [BMI] 30.0-30.9, adult; Z91.19 Patient's noncompliance with other medical treatment and regimen; Z99.81 Dependence on supplemental oxygen; Z79.51 Long term (current) use of inhaled steroids; Z79.82 Long term (current) use of aspirin; Z79.4 Long term (current) use of insulin; Z79.899 Other long term (current) drug therapy; Z87.891 Personal history of nicotine dependence; Z96.652 Presence of left artificial knee joint
CPT/HCPCS: 80048; 83735; 83880; 84484; 85025; 93005; 96372; 96374; 99282; A4216

== ENCOUNTER → 2021-09-24 16:04 | Outpatient (CLI) | payer MEDICARE, OTHER, SELFPAY ==
[2021-09-24 17:35] LABS: Hematocrit 39.9 % (37-47); Hemoglobin 12.4 g/dL (12.0-15.0); Mean Corp Hgb Conc 31.1 g/dL (32-36); Mean Corpuscular Hgb 30.2 pg (27.0-32.0); Mean Corpuscular Volume 97.3 fL (81-99); Mean Platelet Vol. 9.5 fl (6.2-12.0); Platelet Count 326 K/mm3 (150-450); RBC Distribution Width CV 14.7 % (11.6-14.6); RBC Distribution Width SD 52.9 fl (35.1-43.9); White Blood Count 9.3 K/mm3 (4.4-11.0)
[2021-09-24 18:02] LABS: Albumin, Serum 3.7 g/dL (3.2-5.0); BUN 37 mg/dL (7-18); BUN/Creat Ratio 16.4 RATIO (10-20); Calcium,Total 10.5 mg/dL (8.5-10.1); Chloride 104 mmol/L (98-107); Creatinine, Serum 2.25 mg/dL (0.55-1.02); EST Glomerular Filtration Rate 23 mL/min (>60); Est Glom Filt Rate - Afr Amer 28 mL/min (>60); Glucose 85 mg/dL (74-106); Magnesium 2.1 mg/dL (1.6-2.6); Phosphorus 2.9 mg/dL (2.5-4.9); Potassium 4.5 mmol/L (3.5-5.1); Sodium Level 139 mmol/L (136-145)
[2021-09-24 18:03] LABS: Vitamin D,25 Hydroxy 67.7 ng/mL
[2021-09-24 18:20] LABS: Microalbumin,Random Urine 7.1 mg/L (NO RANGE EST.); Microalbumin:Creatinine Ratio 9.5 mg/g CRE (<30 mg/g CRE)
[2021-09-25 09:45] LABS: PTHIN 58.2 pg/mL (18.4-80.1)
== END ==
PROVIDERS: PCP Internal Medicine; Referring Provider Internal Medicine Nephrology; Visit Provider Internal Medicine Nephrology
DX: N18.4 Chronic kidney disease, stage 4 (severe) (principal); D63.1 Anemia in chronic kidney disease; E83.42 Hypomagnesemia; E55.9 Vitamin D deficiency, unspecified
CPT/HCPCS: 36415; 80069; 82043; 82306; 82570; 83735; 83970; 85027

== ENCOUNTER 2021-09-27 13:30 | Outpatient (RCR) | payer MEDICARE, OTHER, SELFPAY ==
--- NOTE | 2021-07-24 17:00 | HP.PTEVAL_ITS ---
Patient's Visit Information WALLACE BAZAN is a 70 year old F referred to Physical Therapy by Dr. Chetan Medina MD with a diagnosis of ARMS AND BACK PAIN. Date of Evaluation: 07/24/21 Physical Therapist: Nghia Willis, PT, Cert MDT, OCS - Visit Plan Frequency: 2x /Week Duration: 4 Weeks Plan: PT INTERVETIONS POSTURAL EX'S,DLS ,BLE STRENGTHENING ,FUNCTION STRENGTHENING AND MODALTIES NEEDED - Subjective This 70 y/o female presents to physical therapy with arms and back pain. This patient had a fall 2 days before 2019 fell in house. Then was hospitalized found to have compression fractures ,transferred to TCU . Then Patient was d/c home Nov 2020. Patient seen Carol had kyphoplasty in DEC . Patient most recently patient be 3L02 COPD continues. Patient pain located lower lumbar. Pain is described sharp ache. Patient had CTSCAN. Patient has tried cortisone injection. MEDS tramadol. Aggravating factors standing, elevations from chair, bending and lifting. Alleviating rest ,laying on left side. Bowel/bladder -. Coughing/sneezing-. Patient c/o paresthesia/tingling. Patient need rollator for walking. Prior used straight cane. Patient sleeping okay at night . Patient is unable to do housework and cooking ,and difficulty with ADLS. Patient can stand less 10mins. Patient symptoms affects QOL and function. No recent falls. Goals to get stronger with arms and legs. PMH: bilateral TKR , 2 lumbar surgeries. SOCIAL: . VOCATION: - Pain Bilateral Back Pain Intensity (Out of 10): 7 Pain Intensity Range: 10 - Objective POSTURE: mild forward posture. GAIT: ambulates with rollator with 02 mild forward posture. NEURO: c/o paresthesia/tingling right leg ,reflexes L3-4,L4-5,L5-S1 1/3. SYYMMRIES: pelvis asymmetries. OBSERVATION: ecchymosis BUE. EDEMA: mild swelling in legs. AROM: BUE WFL. MMT: BUE GROSSLY 4-/5 ,shoulders 3+/5. quads/hams 4-/5 ,right hip flexion 3/5,left hip flexion 3+/5,ankle 4-/5,hip abduction right 3/5,left 3+/5 right. LUMBAR ROM: flexion mod loss ,extension severe loss pain, side glides mod loss. CERVICAL ROM: flexion min loss ,extension, lateral flexion mod severe loss rotation mod loss - Special Tests C/S Radiculapathy - Left Upper limb tension test: Negative C/S Radiculapathy - Right Upper limb tension test: Negative C/S Radiculapathy - Left Spurlings: Negative C/S Radiculapathy - Right Spurlings: Positive Sharp Tano: Negative Vertebral Artery Test: Negative Alar Ligament Test: Negative L/S Slump test left side: Negative L/S Slump test right side: Negative L/S Left Straight Leg Raise: Negative L/S Right Straight Leg Raise: Negative - Balance/Special Test Scores Oswestry Low Back Score: 34 - Goals Goal 1:: Patient to be I with HEP Goal Time Frame: 4-6 Weeks Goal 2:: Patient to ambulate further distances with at community with least restrictive device. Goal Time Frame: 4-6 Weeks Goal 3:: Patient to decrease back pain by 50% or > to improve function with gait > 10mins Goal Time Frame: 4-6 Weeks Goal 4:: Patient increase BLE 4/5 quads/hams, hip flexion 3+/5 right, left 4-/5 to improve ability to get up from chair with ease. Goal Time Frame: 4-6 Weeks Goal 5:: Patient to improve back owestry score by 5 points or> to improve QOL and function Goal Time Frame: 4-6 Weeks Goal 6:: Patient to improve lumbar ROM for function of recovery Goal Time Frame: 4-6 Weeks - Rehabilitation Potential Physical Therapy Diagnosis: This patient has back pain from mechanical fall causing generalized weakness legs ,pain poor lumbar ROM impairs function with ADL'S walking and standing impairs function thus benefit from skilled PT Rehabilitation Potential: Good - Anticipated Interventions Patient/Client Instruction: Educate patient on: Condition, Plan of Care For the Purpose of:: To decrease pain, To increase ROM, To improve muscle performance and motor function, To improve ability to perform ADL's, To increase tolerance to activity/condition/position, To improve performance and i ndependence with ADL's, To improve ability of physical actions for home/community/work/leisure, To improve gait and locomotor functions, To improve health of tissue, To decrease soft tissue restriction, To increase flexibility/ROM, To reduce risk of recurrence, To improve ability to perform tasks related to life management Therapeutic Exercise to Include: Strength training, Balance training, Body mechanics, Postural training, Flexibilty training, Dynamic Lumbar Stabilization Comment: BLE For the Purpose of:: To decrease pain, To increase ROM, To improve muscle performance and motor function, To improve ability to perform ADL's, To increase tolerance to activity/condition/position, To improve ability of physical actions for home/community/work/leisure, To improve health of tissue, To decrease soft tissue restriction, To increase flexibility/ROM, To improve balance, To reduce risk of recurrence, To prevent re-injury TENS: Yes IF ES: Yes Cryotherapy (ice pack, ice massage): Yes Thermo therapy (hot pack): Yes Ultrasound (thermal/non thermal): Yes For the Purpose of:: To decrease pain, To increase ROM, To improve nutrient delivery to tissue, To increase oxygenation perfusion, To decrease soft tissue restriction, To increase flexibility/ROM Thank you for the opportunity to evaluate your patient. For Medicare and Medicare HMO plans, please review the plan of care and approve it. It will need to be FAXED BACK to us at [phone] for Medicare purposes. For Medicare only, by signing this I certify the plan of care. Please let me know if there are questions or concerns regarding this plan of care. Physician Signature: Date:
--- NOTE | 2021-08-21 15:58 | HP.PTREVAL_ITS ---
Dr. Chetan Medina MD, It has been my pleasure to treat WALLACE BAZAN over the last 6 visits for ARMS AND BACK PAIN. Please see the progress note below for an update on the physical therapy plan of care! Subjective: Patient reports PT is helping, getting stronger. plans for epidural injection end of month Objective/Function: POSTURE: mild forward posture ,mod thoracic kyphosis. GAIT: reciprocal pattern with rollator with 02. BUE : WFL. MMT: GROSSLY 4/5 SHOULDERS 4-/5. QUADS/HAMS 4-/5,HIP FLEXION 3+/5,ANKLE 4/5. LUMBAR ROM: F LEXION MOD LOSS ,EXTENSION MOD SEVERE LOSS Plan Plan: PT INTERVETIONS POSTURAL EX'S,DLS ,BLE STRENGTHENING ,FUNCTION STRENGTHENING AND MODALTIES NEEDED Balance/Gait/Functional tests - Balance/Special Test Scores Oswestry Low Back Score: 31 Goals Goal 1:: Patient to be I with HEP Goal Time Frame: 4-6 Weeks Goal Progress: Progressing Goal 2:: Patient to ambulate further distances with at community with least restrictive device. Goal Time Frame: 4-6 Weeks Goal Progress: Progressing Goal 3:: Patient to decrease back pain by 50% or > to improve function with gait > 10mins Goal Time Frame: 4-6 Weeks Goal Progress: Progressing Goal 4:: Patient increase BLE 4/5 quads/hams, hip flexion 3+/5 right, left 4-/5 to improve ability to get up from chair with ease. Goal Time Frame: 4-6 Weeks Goal Progress: Progressing Goal 5:: Patient to improve back owestry score by 5 points or> to improve QOL and function Goal Time Frame: 4-6 Weeks Goal Progress: Progressing Goal 6:: Patient to improve lumbar ROM for function of recovery Goal Time Frame: 4-6 Weeks Goal Progress: Progressing Anticipated Interventions Patient/Client Instruction: Educate patient on: Condition, Plan of Care For the Purpose of:: To decrease pain, To increase ROM, To improve muscle performance and motor function, To improve ability to perform ADL's, To increase tolerance to activity/condition/position, To improve performance and independence with ADL's, To improve ability of physical actions for home/community/work/leisure, To improve gait and locomotor functions, To improve health of tissue, To decrease soft tissue restriction, To increase flexibility/ROM, To reduce risk of recurrence, To improve ability to perform tasks related to life management Therapeutic Exercise to Include: Strength training, Balance training, Body mechanics, Postural training, Flexibilty training, Dynamic Lumbar Stabilization Comment: BLE For the Purpose of:: To decrease pain, To increase ROM, To improve muscle performance and motor function, To improve ability to perform ADL's, To increase tolerance to activity/condition/position, To improve ability of physical actions for home/community/work/leisure, To improve health of tissue, To decrease soft tissue restriction, To increase flexibility/ROM, To improve balance, To reduce risk of recurrence, To prevent re-injury TENS: Yes IF ES: Yes Cryotherapy (ice pack, ice massage): Yes Thermo therapy (hot pack): Yes Ultrasound (thermal/non thermal): Yes For the Purpose of:: To decrease pain, To increase ROM, To improve nutrient delivery to tissue, To increase oxygenation perfusion, To decrease soft tissue restriction, To increase flexibility/ROM Please do not hesitate to contact me at [phone] by phone or Fax: if you have questions or concerns regarding this new plan of care! Sincerely, Nghia Willis, PT, Cert MDT, OCS
--- NOTE | 2021-09-17 14:29 | HP.PTREVAL_ITS ---
Dr. Chetan Medina MD, It has been my pleasure to treat WALLACE BAZAN over the last 14 visits for ARMS AND BACK PAIN. Please see the progress note below for an update on the physical therapy plan of care! Subjective: Fatigued tired from vacation trip. Pain was worse yesterday. 3l02 with working out Objective/Function: POSTURE: mod thoracic. GAIT: ambulated with rollator forward posture reciprocal pattern with 02. MMT: quad/hams 4/5 ,hip flexion 4- /5. POOR endurance needs 02 93% SATS. BALANCE: FAIR+ Plan Plan: CONT WITH POC. PT INTERVETIONS POSTURAL EX'S,DLS ,BLE STRENGTHENING ,FUNCTION STRENGTHENING AND MODALTIES NEEDED Balance/Gait/Functional tests - Balance/Special Test Scores Oswestry Low Back Score: 31 Goals Goal 1:: Patient to be I with HEP Goal Time Frame: 4-6 Weeks Goal Progress: Progressing Goal 2:: Patient to ambulate further distances with at community with least restrictive device. Goal Time Frame: 4-6 Weeks Goal Progress: Progressing Goal 3:: Patient to decrease back pain by 60% or > to improve function with gait > 10mins Goal Time Frame: 4-6 Weeks Goal Progress: Progressing Goal 4:: Patient increase BLE 4/5 quads/hams, hip flexion 4-/5 right, left 4/5 to improve ability to get up from chair with ease. Goal Time Frame: 4-6 Weeks Goal Progress: Progressing Goal 5:: Patient to improve back owestry score by 5 points or> to improve QOL and function Goal Time Frame: 4-6 Weeks Goal Progress: Progressing Goal 6:: Patient to improve lumbar ROM for function of recovery Goal Time Frame: 4-6 Weeks Goal Progress: Progressing Anticipated Interventions Patient/Client Instruction: Educate patient on: Condition, Plan of Care For the Purpose of:: To decrease pain, To increase ROM, To improve muscle performance and motor function, To improve ability to perform ADL's, To increase tolerance to activity/condition/position, To improve performance and independence with ADL's, To improve ability of physical actions for home/community/work/leisure, To improve gait and locomotor functions, To improve health of tissue, To decrease soft tissue restriction, To increase flexibility/ROM, To reduce risk of recurrence, To improve ability to perform tasks related to life management Therapeutic Exercise to Include: Strength training, Balance training, Body mechanics, Postural training, Flexibilty training, Dynamic Lumbar Stabilization Comment: BLE For the Purpose of:: To decrease pain, To increase ROM, To improve muscle performance and motor function, To improve ability to perform ADL's, To increase tolerance to activity/condition/position, To improve ability of physical actions for home/community/work/leisure, To improve health of tissue, To decrease soft tissue restriction, To increase flexibility/ROM, To improve balance, To reduce risk of recurrence, To prevent re-injury TENS: Yes IF ES: Yes Cryotherapy (ice pack, ice massage): Yes Thermo therapy (hot pack): Yes Ultrasound (thermal/non thermal): Yes For the Purpose of:: To decrease pain, To increase ROM, To improve nutrient delivery to tissue, To increase oxygenation perfusion, To decrease soft tissue restriction, To increase flexibility/ROM Please do not hesitate to contact me at [phone] by phone or if you have questions or concerns regarding this new plan of care! Sincerely, Nghia Willis, PT, Cert MDT, OCS
--- NOTE | 2022-01-24 07:26 | HP.PTDCNRP_ITS ---
WALLACE BAZAN was seen in my office for initial evaluation on 07/24/21. The following Plan of Care was established for this patient: Initial Frequency: 2x /Week Initial Duration: 4 Weeks Patient/Client Instruction: Educate patient on: Condition, Plan of Care For the Purpose of:: To decrease pain, To increase ROM, To improve muscle performance and motor function, To improve ability to perform ADL's, To increase tolerance to activity/condition/position, To improve performance and i ndependence with ADL's, To improve ability of physical actions for home/community/work/leisure, To improve gait and locomotor functions, To improve health of tissue, To decrease soft tissue restriction, To increase flexibility/ROM, To reduce risk of recurrence, To improve ability to perform tasks related to life management Therapeutic Exercise to Include: Strength training, Balance training, Body mechanics, Postural training, Flexibilty training, Dynamic Lumbar Stabilization For the Purpose of:: To decrease pain, To increase ROM, To improve muscle performance and motor function, To improve ability to perform ADL's, To increase tolerance to activity/condition/position, To improve ability of physical actions for home/community/work/leisure, To improve health of tissue, To decrease soft tissue restriction, To increase flexibility/ROM, To improve balance, To reduce risk of recurrence, To prevent re-injury TENS: Yes IF ES: Yes Cryotherapy (ice pack, ice massage): Yes Thermo therapy (hot pack): Yes Ultrasound (thermal/non thermal): Yes For the Purpose of:: To decrease pain, To increase ROM, To improve nutrient delivery to tissue, To increase oxygenation perfusion, To decrease soft tissue restriction, To increase flexibility/ROM This patient was last seen in our office . Pertinent comments regarding their Physical therapy will appear below: Patient was seen for PT for 15 visits for back pain focusing on strengthening ,postural ex's and HEP thus is d/c At this point I will be discontinuing this patient from physical therapy. I would be happy to see this patient again in the future if found appropriate by the physician. Thank you! Nghia Willis, PT, Cert MDT, OCS Balance/Gait/Functional tests - Balance/Special Test Scores Oswestry Low Back Score: 17
== END 2021-09-27 19:00 | disposition home or self-care (01) ==
LOC: PT 13:30
PROVIDERS: PCP Internal Medicine; Referring Provider Anesthesiology Pain Medicine; Visit Provider Anesthesiology Pain Medicine
DX: M54.9 Dorsalgia, unspecified (principal); M79.602 Pain in left arm; M79.601 Pain in right arm
CPT/HCPCS: 97110; 97162; 97530

== ENCOUNTER → 2021-10-16 13:30 | Outpatient (CLI) | payer MEDICARE, OTHER, SELFPAY ==
[2021-10-16 15:51] LABS: Albumin, Serum 3.6 g/dL (3.2-5.0); BUN 39 mg/dL (7-18); BUN/Creat Ratio 21.1 RATIO (10-20); Chloride 109 mmol/L (98-107); Creatinine, Serum 1.85 mg/dL (0.55-1.02); EST Glomerular Filtration Rate 29 mL/min (>60); Est Glom Filt Rate - Afr Amer 35 mL/min (>60); Glucose 80 mg/dL (74-106); Phosphorus 2.6 mg/dL (2.5-4.9); Potassium 4.9 mmol/L (3.5-5.1); Sodium Level 140 mmol/L (136-145)
== END ==
PROVIDERS: PCP Internal Medicine; Referring Provider Internal Medicine Nephrology; Visit Provider Internal Medicine Nephrology
DX: N18.4 Chronic kidney disease, stage 4 (severe) (principal)
CPT/HCPCS: 36415; 80069

== ENCOUNTER → 2021-11-12 | Outpatient (CLI) | payer MEDICARE, OTHER, SELFPAY ==
[2021-11-12 15:25] LABS: Potassium 4.8 mmol/L (3.5-5.1)
== END | disposition home or self-care (01) ==
LOC: LABSPEC 15:10
PROVIDERS: PCP Internal Medicine; Visit Provider Internal Medicine
DX: E87.5 Hyperkalemia (principal)
CPT/HCPCS: 84132

== ENCOUNTER 2021-12-10 15:20 | Outpatient (CLI) | payer MEDICARE, OTHER, SELFPAY ==
[2021-12-10 15:31] VITALS: BP 165/68; PULSE 89; RESP 20; TEMP 35.9; O2SAT 93
[2021-12-10] MEDS: DENOSUMAB 60 MG/ML SC (15:42)
== END 2021-12-10 23:59 | disposition short-term general hospital (02) ==
LOC: MEDOUTP 15:22
PROVIDERS: PCP Internal Medicine; Referring Provider Internal Medicine Endocrinology, Diabetes & Metabolism; Visit Provider Internal Medicine Endocrinology, Diabetes & Metabolism
DX: M81.0 Age-related osteoporosis without current pathological fracture (principal)
CPT/HCPCS: 96372; J0897

== ENCOUNTER 2021-12-13 12:32 | Outpatient (CLI) | payer MEDICARE, OTHER, SELFPAY ==
--- NOTE | 2021-12-13 12:35 | RAD_ITS ---
STUDY: X-RAY CHEST REASON FOR EXAM: Female, 71 years old. PNEUMONIA TECHNIQUE: PA and lateral views of the chest. COMPARISON: Comparison is made with prior study dated 04/02/2021. FINDINGS: Stable pleural parenchymal changes at the left lung base with loss of volume in the left hemithorax. Stable scarring in the left upper lobe with fibrocalcific changes. Normal size heart. Calcified left hilar and left mediastinal lymph nodes. Normal visualized pulmonary arteries. There is atherosclerotic calcification of the aortic arch with tortuosity. There are diffuse degenerative changes of the visualized thoracic spine. Dextroscoliosis. There is degenerative osteoarthritis of the bilateral shoulders. There is no demonstrated abnormality of the visualized soft tissue structures of the upper abdomen. RAD/Chest PA and Lateral IMPRESSION: Stable examination with evidence of pleural parenchymal changes at the left lung base and scarring in the left apex. Stable mild increased markings at the right lung base. Electronically Signed: Anam Larios MD at 13:40 EST , Service support ,
== END 2021-12-13 23:59 | disposition short-term general hospital (02) ==
LOC: MTRAD 12:33
PROVIDERS: PCP Internal Medicine; Referring Provider Internal Medicine Pulmonary Disease; Visit Provider Internal Medicine Pulmonary Disease
DX: J45.40 Moderate persistent asthma, uncomplicated (principal)
CPT/HCPCS: 71046

== ENCOUNTER 2021-12-18 10:28 | Outpatient (CLI) | payer MEDICARE, OTHER, SELFPAY ==
[2021-12-18 12:21] LABS: Vitamin D,25 Hydroxy 55.7 ng/mL
[2021-12-18 12:30] LABS: ALB/GLOB Ratio 1.1 RATIO (0.9-2.4); AST(SGOT) 16 U/L (15-37); Alanine Aminotransfer ALT/SGPT 40 U/L (13-56); Albumin, Serum 3.6 g/dL (3.2-5.0); Alkaline Phosphatase 48 U/L (45-117); Anion Gap 6 (5-15); BUN 37 mg/dL (7-18); BUN/Creat Ratio 22.2 RATIO (10-20); Calcium,Total 10.4 mg/dL (8.5-10.1); Chloride 107 mmol/L (98-107); Creatinine, Serum 1.67 mg/dL (0.55-1.02); EST Glomerular Filtration Rate 32 mL/min (>60); Est Glom Filt Rate - Afr Amer 39 mL/min (>60); Globulin 3.2 g/dL (2.2-4.2); Glucose 155 mg/dL (74-106); Potassium 4.4 mmol/L (3.5-5.1); Protein, Total 6.8 g/dL (6.4-8.2); Sodium Level 139 mmol/L (136-145)
== END 2021-12-18 23:59 | disposition short-term general hospital (02) ==
LOC: MTLAB 10:30
PROVIDERS: PCP Internal Medicine; Referring Provider Internal Medicine Endocrinology, Diabetes & Metabolism; Visit Provider Internal Medicine Endocrinology, Diabetes & Metabolism
DX: M81.0 Age-related osteoporosis without current pathological fracture (principal); E55.9 Vitamin D deficiency, unspecified
CPT/HCPCS: 36415; 80053; 82306

== ENCOUNTER 2022-01-13 13:19 | Outpatient (CLI) | payer MEDICARE, OTHER, SELFPAY ==
--- NOTE | 2022-01-13 13:22 | RAD_ITS ---
STUDY: X-RAY CHEST REASON FOR EXAM: Female, 71 years old. CHEST PAIN TECHNIQUE: PA and lateral views of the chest. COMPARISON: Comparison is made with prior study dated 09/12/2022. FINDINGS: The right lung is clear. Stable pleural parenchymal changes at the left lung base. Fibrocalcific scarring in the left lung apex. Normal size heart. Calcified left hilar and left mediastinal lymph nodes. Normal visualized pulmonary arteries. Normal visualized aortic arch and descending thoracic aorta. There are diffuse degenerative changes of the visualized thoracic spine. Dextroscoliosis. Normal visualized ribs, clavicles, and shoulders. There is no demonstrated abnormality of the visualized soft tissue structures of the upper abdomen. RAD/Chest PA and Lateral IMPRESSION: Stable pleural parenchymal changes at the left lung base with left apical scarring. Electronically Signed: Anam Larios MD at 14:00 EST ,
== END 2022-01-13 23:59 | disposition home or self-care (01) ==
LOC: MTRAD 13:21
PROVIDERS: PCP Internal Medicine; Referring Provider Internal Medicine; Visit Provider Internal Medicine
DX: R05.9 Cough, unspecified (principal)
CPT/HCPCS: 71046

== ENCOUNTER 2022-01-14 21:18 | Emergency (ER) | payer MEDICARE, OTHER, SELFPAY ==
[2022-01-14 21:19] VITALS: BP 165/57; PULSE 82; RESP 20; TEMP 36.1; O2SAT 99; BMI 41.0
[2022-01-14] MEDS: Ipratropium/Albuterol Sulfate 3 ML AMPUL.NEB INHALATION (21:36)
--- NOTE | 2022-01-14 21:36 | EKG12_ITS ---
Test Reason : SOB Blood Pressure : / mmHG Vent. Rate : 079 BPM Atrial Rate : 079 BPM P-R Int : 140 ms QRS Dur : 142 ms QT Int : 390 ms P-R-T Axes : 063 118 032 degrees QTc Int : 447 ms Normal sinus rhythm with sinus arrhythmia Right bundle branch block Septal infarct , age undetermined Abnormal ECG Confirmed by QUANG FELIX, JOSE LUIS ([id number]), science editor KATHI COLBERT ([id number]) on 01/16/2022 8:55:58 AM Referred By: JACQUELINE Confirmed By:JOSE LUIS DEL RIO MD
--- NOTE | 2022-01-14 21:36 | RAD_ITS ---
STUDY: X-RAY CHEST REASON FOR EXAM: Female, 71 years old. dyspnea TECHNIQUE: Single AP portable view of the chest. COMPARISON: 01/13/2022 FINDINGS: Lungs are mildly hypoinflated. Subtle bibasilar airspace disease is stable. Remainder of the lung marie are clear There is mild cardiac enlargement. Normal mediastinum and arthur. Normal visualized pulmonary arteries. Normal visualized aortic arch and descending thoracic aorta. Calcified mediastinal lymph nodes Normal visualized thoracic spine. Normal visualized ribs, clavicles, and shoulders. There is no demonstrated abnormality of the visualized soft tissue structures of the upper abdomen. RAD/Chest 1 View (Portable) IMPRESSION: Subtle bibasilar airspace disease is stable Electronically Signed: Dwight Choudhury DO at 22:20 EST ,
--- NOTE | 2022-01-14 21:38 | EDS_ITS ---
HPI History of Present Illness Chief Complaint: General Illness Detail of Chief Complaint: Swelling in legs and shortness of breath started yesterday Informant: patient Narrative Narrative: Patient complains of swelling in her legs since yesterday. Patient states that she scraped her leg against a chair and its been seeping some clear fluid. She has had cough and cold symptoms for about 2 weeks. She is currently on 3 L of home O2 for history of COPD and asthma. She complains of wheezing and exertional dyspnea. She is been using her nebulizer at home but not get much relief. She denies any chest pain but does have some tightness related to her wheezing. Patient denies any fevers. She has had her COVID vaccine and booster. Patient tells me she had a Covid test couple weeks ago that was negative. [facility] Medical History Allergic rhinitis Asthma Chronic kidney disease Chronic obstructive lung disease Chronic renal failure, stage 3 (moderate) Compression fracture of L1 vertebra Constipation Debility Diabetes Diabetes mellitus type 2 in obese Dysphagia Essential (primary) hypertension GERD (gastroesophageal reflux disease) Gout Hyperlipidemia Hyperuricemia Intractable low back pain L1 vertebral fracture Leukocytosis Lung abscess Morbid obesity Muscle spasm Noncompliance with CPAP treatment Obesity Obesity (BMI 30-39.9) Obstructive sleep apnea On home O2 Osteopenia Osteoporosis Osteoporosis Overactive bladder Paroxysmal atrial fibrillation Pneumonia Right bundle branch block (RBBB) Sarcoidosis Secondary pulmonary arterial hypertension Type 2 diabetes mellitus Venous insufficiency of both lower extremities Home Medications fluticasone propionate 2 spray NASAL DAILY PRN PRN 06/21/17 [History Last Taken 11/19/20] febuxostat 40 mg PO DAILY 12/30/18 [History Last Taken 11/19/20] fluticasone 500 mcg-salmeterol 50 mcg/dose blistr powdr for inhalation 1 inh INHALATION BID 07/17/20 [History Last Taken 11/19/20] montelukast 10 mg PO QHS 11/19/20 [History Last Taken 11/18/20] tramadol 50 mg PO Q8H PRN #9 tab 12/05/20 [Rx Last Taken Unknown] acetaminophen 650 mg tablet,extended release 650 mg PO Q12H tab 02/08/21 [History Last Taken Unknown] albuterol sulfate 90 mcg/actuation aerosol inhaler 2 puff INHALATION Q4H PRN g 02/08/21 [History Last Taken Unknown] ammonium lactate 12 % topical cream 1 applic TOPICAL DAILY PRN 02/08/21 [History Last Taken Unknown] aspirin 81 mg tablet,delayed release 81 mg PO DAILY #1 tab 02/08/21 [Rx Last Taken Unknown] cyanocobalamin (vitamin B-12) 1,000 mcg tablet 1,000 mcg PO DAILY tab 02/08/21 [History Last Taken Unknown] fluconazole 150 mg tablet 150 mg PO Q3D PRN 02/08/21 [History Last Taken Unknown] pantoprazole 40 mg tablet,delayed release 40 mg PO BID tab 02/08/21 [History Last Taken Unknown] triamterene 37.5 mg-hydrochlorothiazide 25 mg tablet 1 tab PO DAILY tab 02/08/21 [History Last Taken Unknown] losartan 50 mg tablet 100 mg PO DAILY tab 07/02/21 [History Last Taken Unknown] cholecalciferol (vitamin D3) 25 mcg (1,000 unit) tablet 4,000 unit PO DAILY tab 07/22/21 [History Last Taken Unknown] insulin aspart U-100 100 unit/mL (3 mL) subcutaneous pen 8 unit SUBCUT BREAKFAST ml 07/22/21 [History Last Taken Unknown] insulin aspart U-100 [Novolog Flexpen U-100 Insulin] 8 unit SUBCUT LUNCH 08/08/21 [History Last Taken Unknown] insulin aspart U-100 [Novolog Flexpen U-100 Insulin] 14 unit SUBCUT DINNER 08/08/21 [History Last Taken Unknown] diltiazem HCl 180 mg capsule,24 hr,extended release 180 mg PO DAILY #90 cap 09/10/21 [Rx Last Taken Unknown] azelastine 137 mcg (0.1 %) nasal spray aerosol 137 mcg INTRANASAL BID 11/19/21 [History Last Taken Unknown] denosumab 60 mg/mL subcutaneous syringe 60 mg SUBCUT [id number] #1 ml 11/19/21 [Rx Last Taken Unknown] insulin glargine 100 unit/mL (3 mL) subcutaneous pen 36 unit SC QPM ml 11/19/21 [History Last Taken Unknown] cimetidine [Tagamet] 200 mg PO DAILY 01/14/22 [History Last Taken Unknown] doxycycline monohydrate 100 mg PO BID #20 capsule 01/14/22 [Rx Last Taken Unknown] fenofibric acid (choline) [Trilipix] 135 mg PO DAILY 01/14/22 [History Last Taken Unknown] ipratropium-albuterol 3 ml INHALATION Q4H PRN #90 ml 01/14/22 [Rx Last Taken Unknown] loratadine [Claritin] 10 mg PO DAILY 01/14/22 [History Last Taken Unknown] mirabegron [Myrbetriq] 50 mg PO DAILY 01/14/22 [History Last Taken Unknown] polyethylene glycol 3350 [Miralax] 17 g PO BID 01/14/22 [History Last Taken Unknown] prednisone 20 mg PO BID #6 tab 01/14/22 [Rx Last Taken Unknown] sitagliptin [Januvia] 50 mg PO DAILY 01/14/22 [History Last Taken Unknown] tiotropium bromide [Spiriva Respimat] 2 puff INHALATION DAILY 01/14/22 [History Last Taken Unknown] Allergy/AdvReac Type Severity Reaction Status Date / Time clindamycin Allergy Rash Verified 01/14/22 21:19 insulin detemir Allergy Rash Verified 01/14/22 21:19 [From Levemir U-100 Insulin] ciprofloxacin AdvReac Mild Upset Verified 01/14/22 21:19 Stomach amoxicillin trihydrate AdvReac Nausea Verified 01/14/22 21:19 [From Augmentin] morphine AdvReac Nausea Verified 01/14/22 21:19 potassium clavulanate AdvReac Nausea Verified 01/14/22 21:19 [From Augmentin] Family History Father Hypertension Colon cancer Cancer lung Mother Hypertension Heart disease Diabetes Surgical History History of cholecystectomy History of knee replacement procedure of left knee History of laminectomy History of right and left heart catheterization (05/04/20) Social History Smoking Status: Former smoker how long ago did patient quit smokin years ago alcohol intake: never substance use type: does not use caffeine: Yes Type: coffee Number of servings: 2 ROS ROS ED Constitutional Constitutional ED: Reports systems reviewed and no addt'l complaints, except as documented; Denies body ache(s), change in weight or chills Eyes Eyes: Denies acute decrease in peripheral vision, change in vision, double vision or loss of vision ENT ENT ED: Reports none; Denies ear pain, lip swelling, loss taste/smell, neck pain, otalgia or sore throat Cardiovascular Cardiovascular: Reports none; Denies abdominal pain, chest pain with activity, leg edema, lightheadedness, palpitations, rapid heart rate or syncope Respiratory/Chest Respiratory/Chest: Reports none, cough, dyspnea and dyspnea on exertion; Denies change in mental status, dry cough, hemoptysis, shortness of breath at rest or shortness of breath with exertion Gastrointestinal Gastrointestinal: Reports none; Denies abdominal pain, change in stool character, diarrhea, hematemesis, hematochezia, melena, rectal bleeding or vomiting Genitourinary Genitourinary ED: Reports none; Denies abdominal discomfort, anuria, dysuria, genital pain or polyuria Musculoskeletal Musculoskeletal: Reports none; Denies arthralgias, back pain, difficulty walking, extremity pain, muscle weakness or myalgias Integumentary Reports none and other Details: Skin avulsion to right lower extremity and edema to both lower extremities ; Denies abscess or rash Neurologic Neurologic: Reports none; Denies abnormal gait, confusion, focal weakness, frequent falls, headache(s), loss of vision, numbness, paresthesias, radicular pain, vertigo or weakness Psychiatric Psychiatric: Reports systems reviewed and no addt'l complaints, except as documented and none; Denies behavioral changes, confusion, difficulty concentrating, hallucinations, suicidal ideation, tactile hallucinations or visual hallucinations Endocrine Endocrinology: Denies none, cold intolerance, excessive sweating, fatigue or heat intolerance Hematologic/Lymphatic Hematologic/Lymphatic: Reports none; Denies anemia, easy bleeding or easy bruising Allergic/Immunologic Allergic/Immunologic ED: Denies as per HPI, none, lip swelling, mouth swelling, throat swelling, tongue swelling or hives EXAM Physical Exam Const Vital Signs: 01/14/22 21:19 01/14/22 21:37 01/14/22 21:55 Temperature 97.0 F L Temperature Source Temporal Pulse Rate 82 85 Respiratory Rate 20 H 21 H Respiratory Effort Short of Breath Respiratory Pattern Normal Tachypnea Blood Pressure 165/57 H Blood Pressure Mean 93 Pulse Ox 99 Oxygen Delivery Method Nasal Cannula Oxygen Flow Rate (L/min) 3 01/14/22 22:28 01/14/22 23:24 Temperature Temperature Source Pulse Rate 85 77 Respiratory Rate 20 H 22 H Respiratory Effort Respiratory Pattern Blood Pressure 128/61 H 139/47 H Blood Pressure Mean 83 77 Pulse Ox 97 96 Oxygen Delivery Method Nasal Cannula Nasal Cannula Oxygen Flow Rate (L/min) 3 3 Positive well nourished and well developed General Appearance ED: well developed and NAD HEENT Reports TM's clear and moist mucous membranes normocephalic and atraumatic; Negative for trauma or tenderness Tympanic Membrane ED: Yes TM's clear Eyes PERRL and EOMs intact bilaterally General Eye ED: Negative for pale conjunctiva or scleral icterus Neck no lymphadenopathy, supple and no JVD General: Negative for tenderness Chest Wall inspection of chest normal and palpation of chest normal Chest: Negative for tenderness Resp normal respiratory effort and No clear to auscultation bilaterally Effort and Inspection: Negative for respiratory distress or pain with movement Auscultation: wheezes; Negative for rhonchi or diminished lung sounds Cardio regular rate, regular rhythm, S1 normal heart sound, S2 normal heart sound and no murmurs Peripheral Pulses: pulses 2+ throughout GI normal to inspection, nondistended, normoactive bowel sounds, soft to palpation, non-tender, non-distended and no masses Back/Spine no CVA tenderness and no thoracic nor lumbar tenderness Extremity Extremity Narrative: Patient with +2 edema both lower extremities. Evaluation of the right lateral calf reveals a 4 cm superficial skin tear with no active bleeding. General Extremety ED: Yes edema General Extremity: edema Neuro oriented x3, CN's II-XII intact bilaterally, no sensory deficits noted and gait normal Sensorium / Orientation: awake, alert, oriented to person, oriented to place and oriented to time Motor Exam: strength 5/5 throughout and strength abnormal Psych mental status grossly normal Skin no rashes or lesions noted and no wounds MDM MDM MDM Narrative Medical decision making narrative: IV line established on arrival. Patient was given a DuoNeb aerosol and Solu-Medrol 125 mg IV. She did have improvement in her dyspnea with that. Chest x-ray was essentially unremarkable. BNP was normal. At this point I suspect she is having a COPD flare and suspect some component of sinusitis. Patient was offered admission for aerosols and steroids however she states that she has a primary care physician appointment tomorrow and an ENT appointment that she would like to try to go home. Patient will be started on prednisone as well as doxycycline and will be given a prescription for DuoNeb aerosols. Patient advised return if increasing shortness of breath or condition should worsen anyway. Lab Data Attestation: I reviewed the patient's lab results. Labs: Laboratory Results - last 24 hr 01/14/22 01/14/22 01/14/22 22:00 22:00 22:00 WBC 13.8 H RBC 3.91 L Hgb 12.4 Hct 38.3 MCV 98.0 MCH 31.7 MCHC 32.4 RDW Std Deviation 53.5 H RDW Coeff of Jazzmine 14.9 H Plt Count 298 MPV 9.3 Neut % (Auto) Not Reportable Absolute Neuts (auto) 9.2 H Absolute Lymphs (auto) 1.79 Total Counted 100 Neutrophils % (Manual) 63 Band Neutrophils % 4 Lymphocytes % (Manual) 13 L Monocytes % (Manual) 14 H Metamyelocytes % 3 H Myelocytes % 3 H Diff Path Review May foll Sodium 141 Potassium 4.6 Chloride 110 H Carbon Dioxide 26.0 Anion Gap 5 BUN 56 H Creatinine 1.97 H Estim Creat Clear Calc 18.81 Est GFR (MDRD) Af Amer 32 L Est GFR (MDRD) Non-Af 27 L BUN/Creatinine Ratio 28.4 H Glucose 152 H Lactic Acid Calcium 9.8 Troponin I High Sens 16 B-Natriuretic Peptide 36.0 01/14/22 22:00 WBC RBC Hgb Hct MCV MCH MCHC RDW Std Deviation RDW Coeff of Jazzmine Plt Count MPV Neut % (Auto) Absolute Neuts (auto) Absolute Lymphs (auto) Total Counted Neutrophils % (Manual) Band Neutrophils % Lymphocytes % (Manual) Monocytes % (Manual) Metamyelocytes % Myelocytes % Diff Path Review Sodium Potassium Chloride Carbon Dioxide Anion Gap BUN Creatinine Estim Creat Clear Calc Est GFR (MDRD) Af Amer Est GFR (MDRD) Non-Af BUN/Creatinine Ratio Glucose Lactic Acid 1.4 Calcium Troponin I High Sens B-Natriuretic Peptide Radiography Chest X-Ray - ED: 1 View Diagnostic Testing: Clinical Impression(s) from Imaging Studies Chest X-Ray 01/14/22 21:36 IMPRESSION: Subtle bibasilar airspace disease is stable Electronically Signed: Dwight Choudhury DO at 22:20 EST , 1 view chest ray obtained interpreted by myself as chronic changes with some bibasilar atelectasis. Radiology in agreement EKG Initial EKG: Attestation: I personally reviewed and interpreted this EKG as follows: Comments: Sinus rhythm with a ventricular rate of 79 bpm with a right bundle branch block and old septal infarct Prior EKG tracings: available for review Prior: Unchanged Discharge Plan Triage Chief Complaint: General Illness Other Complaint: Edema Shortness of Breath Wound ED Provider: Mychal Watson Dx/Rx/DC Orders Clinical Impression: Chronic obstructive lung disease, Acute dyspnea, Leg edema Instructions: ED COPD Flare, ED Dyspnea Prescriptions: New doxycycline monohydrate 100 MG capsule 100 mg PO BID Qty: 20 RF: 0 ipratropium-albuterol 0.5 mg-3 mg(2.5 mg base)/3 mL solution for nebulization 3 ml inhalation Q4H PRN (Reason: wheezing) Qty: 90 RF: 0 prednisone 20 mg tablet 20 mg PO BID Qty: 6 RF: 0 No Action fluticasone propion-salmeterol [Advair Diskus] 500-50 mcg/dose blister with device 1 inh INHALATION BID RF: 0 fluconazole 150 mg tablet 150 mg PO Q3D PRN (Reason: yeast) RF: 0 albuterol sulfate 90 mcg/actuation HFA aerosol inhaler 2 puff INHALATION Q4H PRN (Reason: sob) RF: 0 triamterene-hydrochlorothiazid 37.5-25 mg tablet 1 tab PO DAILY RF: 0 ammonium lactate 12 % cream 1 applic TOPICAL DAILY PRN (Reason: Dry Skin) RF: 0 acetaminophen [Tylenol Arthritis Pain] 650 mg tablet extended release 650 mg PO Q12H RF: 0 aspirin 81 mg tablet,delayed release (DR/EC) 81 mg PO DAILY Qty: 1 RF: 0 diltiazem HCl 180 mg capsule,extended release 24 hr 180 mg PO DAILY Qty: 90 RF: 3 insulin aspart U-100 100 unit/mL (3 mL) insulin pen 8 unit subcut BREAKFAST RF: 0 azelastine 137 mcg (0.1 %) aerosol,spray 137 mcg intranasal BID RF: 0 insulin glargine 100 unit/mL (3 mL) insulin pen 36 unit SC QPM RF: 0 denosumab 60 mg/mL syringe 60 mg subcut [id number] Qty: 1 RF: 1 fluticasone propionate 1 SPRAY spray,suspension 2 spray NASAL DAILY PRN PRN (Reason: Congestion) RF: 0 febuxostat 40 MG tablet 40 mg PO DAILY RF: 0 cholecalciferol (vitamin D3) 25 mcg (1,000 unit) tablet 4,000 unit PO DAILY RF: 0 cyanocobalamin (vitamin B-12) 1,000 mcg tablet 1,000 mcg PO DAILY RF: 0 montelukast 10 MG tablet 10 mg PO QHS RF: 0 pantoprazole 40 mg tablet,delayed release (DR/EC) 40 mg PO BID RF: 0 tramadol 50 MG tablet 50 mg PO Q8H PRN (Reason: Pain Score 4-5) Qty: 9 RF: 0 insulin aspart U-100 [Novolog Flexpen U-100 Insulin] 100 unit/mL (3 mL) insulin pen 8 unit SUBCUT LUNCH RF: 0 insulin aspart U-100 [Novolog Flexpen U-100 Insulin] 100 unit/mL (3 mL) insulin pen 14 unit SUBCUT DINNER RF: 0 loratadine [Claritin] 10 mg Tablet 10 mg PO DAILY RF: 0 Januvia 50 mg Tablet 50 mg PO DAILY RF: 0 fenofibric acid (choline) [Trilipix] 135 mg Capsule,Delayed Release(Dr/Ec) 135 mg PO DAILY RF: 0 cimetidine [Tagamet] 200 mg Tablet 200 mg PO DAILY RF: 0 Myrbetriq 50 mg Tablet Extended Release 24 Hr 50 mg PO DAILY RF: 0 polyethylene glycol 3350 [Miralax] 17 gram Powder In Packet 17 g PO BID RF: 0 Spiriva Respimat 1.25 mcg/actuation Mist 2 puff INHALATION DAILY RF: 0 losartan 50 mg tablet 100 mg PO DAILY RF: 0 Primary Care Provider: Veronica Oquendo Referrals: Veronica Oquendo DO [Primary Care Provider] - [facility] appointment Disposition Disposition: Home, Self Care
[2022-01-14 21:55] VITALS: PULSE 85; RESP 21
[2022-01-14] MEDS: MethylPREDNISolone 125 MG/2 ML Vial IV (22:05)
[2022-01-14 22:16] LABS: Hematocrit 38.3 % (37-47); Hemoglobin 12.4 g/dL (12.0-15.0); Mean Corp Hgb Conc 32.4 g/dL (32-36); Mean Corpuscular Hgb 31.7 pg (27.0-32.0); Mean Platelet Vol. 9.3 fl (6.2-12.0); POSITIVE COUNT YES; POSITIVE MORPHOLOGY YES; Platelet Count 298 K/mm3 (150-450); RBC Distribution Width CV 14.9 % (11.6-14.6); RBC Distribution Width SD 53.5 fl (35.1-43.9); Red Blood Count 3.91 M/mm3 (4.2-5.4); White Blood Count 13.8 K/mm3 (4.4-11.0)
[2022-01-14 22:28] VITALS: BP 128/61; PULSE 85; RESP 20; O2SAT 97
[2022-01-14 22:28] LABS: Lactic Acid 1.4 mmol/L (0.4-1.9)
[2022-01-14 22:30] LABS: Differential Indicated MANUAL DIFF
[2022-01-14 22:36] LABS: Anion Gap 5 (5-15); BUN 56 mg/dL (7-18); BUN/Creat Ratio 28.4 RATIO (10-20); Calcium,Total 9.8 mg/dL (8.5-10.1); Chloride 110 mmol/L (98-107); Creatinine, Serum 1.97 mg/dL (0.55-1.02); EST Glomerular Filtration Rate 27 mL/min (>60); Est Glom Filt Rate - Afr Amer 32 mL/min (>60); Estimated Creatinine Clearance 18.81 ml/min; Glucose 152 mg/dL (74-106); Potassium 4.6 mmol/L (3.5-5.1); Sodium Level 141 mmol/L (136-145); Troponin-I HS 16 pg/mL (3.0-54.0)
[2022-01-14 23:10] LABS: Lymphocyte 13 % (19-41); Metamyelocyte 3 % (0-1); Monocyte 14 % (0-10); Myelocyte 3 % (0-0); Neutrophil-Band 4 % (0-5); Neutrophil-Segmented 63 % (47-70); Total Cells Counted 100 (MANUAL DIFF)
[2022-01-14 23:15] LABS: Absolute Lymphocyte Count 1.79 X10^3/uL (0.83-4.51); Absolute Neutrophil Count 9.2 X10^3/uL (2.0-7.7)
[2022-01-14 23:24] VITALS: BP 139/47; PULSE 77; RESP 22; O2SAT 96
[2022-01-14] MEDS: Doxycycline 100 MG CAPSULE PO (23:39)
[2022-01-16 12:56] LABS: Pathologist Review Reviewed
== END 2022-01-14 23:52 | disposition home or self-care (01) ==
PROVIDERS: Emergency Provider Emergency Medicine; PCP Internal Medicine; Visit Provider Emergency Medicine
DX: J44.9 Chronic obstructive pulmonary disease, unspecified (principal); I27.21 Secondary pulmonary arterial hypertension; E11.22 Type 2 diabetes mellitus with diabetic chronic kidney disease; I48.0 Paroxysmal atrial fibrillation; Z79.4 Long term (current) use of insulin; N18.30 Chronic kidney disease, stage 3 unspecified; I12.9 Hypertensive chronic kidney disease with stage 1 through stage 4 chronic kidney disease, or unspecified chronic kidney disease; R60.0 Localized edema; E78.5 Hyperlipidemia, unspecified; Z87.891 Personal history of nicotine dependence; Z99.81 Dependence on supplemental oxygen; R06.00 Dyspnea, unspecified; Z20.822 Contact with and (suspected) exposure to COVID-19; E66.9 Obesity, unspecified; R13.10 Dysphagia, unspecified; K21.9 Gastro-esophageal reflux disease without esophagitis; M10.9 Gout, unspecified; G47.33 Obstructive sleep apnea (adult) (pediatric); Z96.652 Presence of left artificial knee joint; S81.811A Laceration without foreign body, right lower leg, initial encounter; X58.XXXA Exposure to other specified factors, initial encounter
CPT/HCPCS: 71045; 80048; 83605; 83880; 84484; 85025; 87040; 87426; 93005; 94640; 96374; 99283; A4216

== ENCOUNTER 2022-01-17 12:59 | Outpatient (CLI) | payer MEDICARE, OTHER, SELFPAY | END 2022-01-17 23:59 | disposition home or self-care (01) | LOC: MTLAB 12:59 | PROVIDERS: PCP Internal Medicine; Referring Provider Internal Medicine Pulmonary Disease; Visit Provider Internal Medicine Pulmonary Disease | DX: J45.40 Moderate persistent asthma, uncomplicated (principal) | CPT/HCPCS: 87070; 87107; 87205 ==

== ENCOUNTER 2022-01-27 12:58 | Emergency (ER) | payer MEDICARE, OTHER, SELFPAY ==
[2022-01-27 13:00] VITALS: BP 142/53; PULSE 84; RESP 24; TEMP 36.1; O2SAT 95; BMI 42.0
--- NOTE | 2022-01-27 13:44 | EKG12_ITS ---
Test Reason : SOB Blood Pressure : / mmHG Vent. Rate : 077 BPM Atrial Rate : 077 BPM P-R Int : 154 ms QRS Dur : 148 ms QT Int : 426 ms P-R-T Axes : 055 110 046 degrees QTc Int : 482 ms Normal sinus rhythm Right bundle branch block Septal infarct , age undetermined Abnormal ECG Confirmed by IRA FELIX, KEREN ([id number]), online content editor KATHI COLBERT ([id number]) on 01/30/2022 1:23:34 PM Referred By: SPEEDY/SHANTELLE Confirmed By:KEREN ROTH MD
--- NOTE | 2022-01-27 13:54 | RAD_ITS ---
STUDY: X-RAY CHEST REASON FOR EXAM: Female, 71 years old. Fever and cough TECHNIQUE: Single AP portable view of the chest. COMPARISON: 01/14/2022 FINDINGS: Lungs are mildly hypoinflated. Subtle bibasilar airspace disease is stable. Remainder of the lung marie are clear There is mild cardiac enlargement. Normal mediastinum and arthur. Normal visualized pulmonary arteries. Normal visualized aortic arch and descending thoracic aorta. Calcified mediastinal lymph nodes Normal visualized thoracic spine. Normal visualized ribs, clavicles, and shoulders. There is no demonstrated abnormality of the visualized soft tissue structures of the upper abdomen. RAD/Chest 1 View (Portable) IMPRESSION: No interval change Electronically Signed: Randall Turcios MD at 14:27 EST ,
[2022-01-27 13:59] LABS: Hematocrit 39.4 % (37-47); Hemoglobin 12.8 g/dL (12.0-15.0); Mean Corp Hgb Conc 32.5 g/dL (32-36); Mean Corpuscular Hgb 31.4 pg (27.0-32.0); Mean Corpuscular Volume 96.6 fL (81-99); POSITIVE COUNT YES; POSITIVE MORPHOLOGY YES; Platelet Count 228 K/mm3 (150-450); RBC Distribution Width CV 14.8 % (11.6-14.6); RBC Distribution Width SD 53.2 fl (35.1-43.9); Red Blood Count 4.08 M/mm3 (4.2-5.4); White Blood Count 16.2 K/mm3 (4.4-11.0)
[2022-01-27 14:05] LABS: Differential Indicated MANUAL DIFF
[2022-01-27 14:14] LABS: Anion Gap 5 (5-15); BUN 44 mg/dL (7-18); BUN/Creat Ratio 26.2 RATIO (10-20); Calcium,Total 9.9 mg/dL (8.5-10.1); Chloride 106 mmol/L (98-107); Creatinine, Serum 1.68 mg/dL (0.55-1.02); EST Glomerular Filtration Rate 32 mL/min (>60); Est Glom Filt Rate - Afr Amer 39 mL/min (>60); Estimated Creatinine Clearance 22.06 ml/min; Glucose 104 mg/dL (74-106); Potassium 4.7 mmol/L (3.5-5.1); Sodium Level 137 mmol/L (136-145); Troponin-I HS 22 pg/mL (3.0-54.0)
[2022-01-27] MEDS: Albuterol 2.5 MG/3 ML VIAL.NEB. INHALATION (14:15)
[2022-01-27 14:16] VITALS: PULSE 75; RESP 18; O2SAT 98
[2022-01-27 14:46] LABS: Neutrophil-Band 7 % (0-5); Neutrophil-Segmented 77 % (47-70); Total Cells Counted 100 (MANUAL DIFF)
[2022-01-27 14:47] LABS: Eosinophil 1 % (0-5); Lymphocyte 7 % (19-41); Metamyelocyte 4 % (0-1); Monocyte 2 % (0-10); Myelocyte 1 % (0-0); Other WBC Type 1 %; Platelet Estimate ADEQUATE (ADEQ)
[2022-01-27 14:48] LABS: Red Cell Morphology NORM C+C NORMAL (NORM C&C)
[2022-01-27 14:53] LABS: Absolute Lymphocyte Count 1.13 X10^3/uL (0.83-4.51); Absolute Neutrophil Count 4.8 X10^3/uL (2.0-7.7)
[2022-01-27 14:54] LABS: BNP,B-Type NATRIURETIC PEPTIDE 43.8 pg/mL (0-100)
[2022-01-27 15:10] VITALS: BP 127/52; PULSE 76; RESP 18; TEMP 36.1; O2SAT 97
[2022-01-27 15:11] VITALS: O2SAT 97
--- NOTE | 2022-01-27 15:59 | ED.VIS.DYS ---
HPI History of Present Illness Chief Complaint: Shortness of Breath Informant: patient Onset/Context/Timing Onset: Month(s) (1) Context: gradual and onset Timing: Continuous Quality: Positive for Dyspnea on exertion and Wheezing Current Severity: Moderate Maximum Severity: Severe Worsened by: Exertion, Lying flat and Coughing Relieved by: Rest and Albuterol Associated Symptoms cough Chest Pain: Positive for None Narrative Narrative: 71-year-old female with history of COPD on 2-2.5 L oxygen /, and pulmonary hypertension has been gradually getting more dyspneic for the past month, and now for the past couple weeks her legs are getting edematous. She was seen by her pulmonary doctor and sent to the ER for further evaluation out of concern for possible heart failure which she states she does not have a history of it has not had a recent echocardiogram. She has been doing breathing treatments at home, they help just a little. She denies any fevers or chills. No known contact with anyone with Covid that she knows of, and she has been vaccinated before. She has been on 3 different antibiotics in the past month including doxycycline, levofloxacin, and the patient thinks may be Zyvox. [facility] Medical History Allergic rhinitis Asthma Chronic kidney disease Chronic obstructive lung disease Chronic renal failure, stage 3 (moderate) Compression fracture of L1 vertebra Constipation Debility Diabetes Diabetes mellitus type 2 in obese Dysphagia Essential (primary) hypertension GERD (gastroesophageal reflux disease) Gout Hyperlipidemia Hyperuricemia Intractable low back pain L1 vertebral fracture Leukocytosis Lung abscess Morbid obesity Muscle spasm Noncompliance with CPAP treatment Obesity Obesity (BMI 30-39.9) Obstructive sleep apnea On home O2 Osteopenia Osteoporosis Osteoporosis Overactive bladder Paroxysmal atrial fibrillation Pneumonia Right bundle branch block (RBBB) Sarcoidosis Secondary pulmonary arterial hypertension Type 2 diabetes mellitus Venous insufficiency of both lower extremities Home Medications fluticasone propionate 2 spray NASAL DAILY PRN PRN 06/21/17 [History Last Taken 11/19/20] febuxostat 40 mg PO DAILY 12/30/18 [History Last Taken 11/19/20] fluticasone 500 mcg-salmeterol 50 mcg/dose blistr powdr for inhalation 1 inh INHALATION BID 07/17/20 [History Last Taken 11/19/20] montelukast 10 mg PO QHS 11/19/20 [History Last Taken 11/18/20] tramadol 50 mg PO Q8H PRN #9 tab 12/05/20 [Rx Last Taken Unknown] acetaminophen 650 mg tablet,extended release 650 mg PO Q12H tab 02/08/21 [History Last Taken Unknown] albuterol sulfate 90 mcg/actuation aerosol inhaler 2 puff INHALATION Q4H PRN g 02/08/21 [History Last Taken Unknown] ammonium lactate 12 % topical cream 1 applic TOPICAL DAILY PRN 02/08/21 [History Last Taken Unknown] aspirin 81 mg tablet,delayed release 81 mg PO DAILY #1 tab 02/08/21 [Rx Last Taken Unknown] cyanocobalamin (vitamin B-12) 1,000 mcg tablet 1,000 mcg PO DAILY tab 02/08/21 [History Last Taken Unknown] fluconazole 150 mg tablet 150 mg PO Q3D PRN 02/08/21 [History Last Taken Unknown] pantoprazole 40 mg tablet,delayed release 40 mg PO BID tab 02/08/21 [History Last Taken Unknown] triamterene 37.5 mg-hydrochlorothiazide 25 mg tablet 1 tab PO DAILY tab 02/08/21 [History Last Taken Unknown] losartan 50 mg tablet 100 mg PO DAILY tab 07/02/21 [History Last Taken Unknown] cholecalciferol (vitamin D3) 25 mcg (1,000 unit) tablet 4,000 unit PO DAILY tab 07/22/21 [History Last Taken Unknown] insulin aspart U-100 100 unit/mL (3 mL) subcutaneous pen 8 unit SUBCUT BREAKFAST ml 07/22/21 [History Last Taken Unknown] insulin aspart U-100 [Novolog Flexpen U-100 Insulin] 8 unit SUBCUT LUNCH 08/08/21 [History Last Taken Unknown] insulin aspart U-100 [Novolog Flexpen U-100 Insulin] 14 unit SUBCUT DINNER 08/08/21 [History Last Taken Unknown] diltiazem HCl 180 mg capsule,24 hr,extended release 180 mg PO DAILY #90 cap 09/10/21 [Rx Last Taken Unknown] azelastine 137 mcg (0.1 %) nasal spray aerosol 137 mcg INTRANASAL BID 11/19/21 [History Last Taken Unknown] denosumab 60 mg/mL subcutaneous syringe 60 mg SUBCUT [id number] #1 ml 11/19/21 [Rx Last Taken Unknown] insulin glargine 100 unit/mL (3 mL) subcutaneous pen 36 unit SC QPM ml 11/19/21 [History Last Taken Unknown] cimetidine [Tagamet] 200 mg PO DAILY 01/14/22 [History Last Taken Unknown] fenofibric acid (choline) [Trilipix] 135 mg PO DAILY 01/14/22 [History Last Taken Unknown] ipratropium-albuterol 3 ml INHALATION Q4H PRN #90 ml 01/14/22 [Rx Last Taken Unknown] loratadine [Claritin] 10 mg PO DAILY 01/14/22 [History Last Taken Unknown] mirabegron [Myrbetriq] 50 mg PO DAILY 01/14/22 [History Last Taken Unknown] polyethylene glycol 3350 [Miralax] 17 g PO BID 01/14/22 [History Last Taken Unknown] sitagliptin [Januvia] 50 mg PO DAILY 01/14/22 [History Last Taken Unknown] tiotropium bromide [Spiriva Respimat] 2 puff INHALATION DAILY 01/14/22 [History Last Taken Unknown] prednisone 10 mg PO UD #13 tab 01/27/22 [Rx Last Taken Unknown] Allergy/AdvReac Type Severity Reaction Status Date / Time clindamycin Allergy Rash Verified 01/27/22 12:59 insulin detemir Allergy Rash Verified 01/27/22 12:59 [From Levemir U-100 Insulin] ciprofloxacin AdvReac Mild Upset Verified 01/27/22 12:59 Stomach amoxicillin trihydrate AdvReac Nausea Verified 01/27/22 12:59 [From Augmentin] morphine AdvReac Nausea Verified 01/27/22 12:59 potassium clavulanate AdvReac Nausea Verified 01/27/22 12:59 [From Augmentin] Family History Father Hypertension Colon cancer Cancer lung Mother Hypertension Heart disease Diabetes Surgical History History of cholecystectomy History of knee replacement procedure of left knee History of laminectomy History of right and left heart catheterization (05/04/20) Social History Smoking Status: Former smoker how long ago did patient quit smokin years ago alcohol intake: never substance use type: does not use caffeine: Yes Type: coffee Number of servings: 2 ROS ROS ED Constitutional Constitutional ED: Reports malaise; Denies body ache(s), chills or fever(s) Eyes Eyes: Denies change in vision or diplopia ENT ENT ED: Denies rhinorrhea or sore throat Cardiovascular Cardiovascular: Reports orthopnea; Denies chest pain or palpitations Respiratory/Chest Respiratory/Chest: Reports cough, dyspnea, dyspnea on exertion, orthopnea and productive cough Gastrointestinal Gastrointestinal: Denies abdominal pain, diarrhea, nausea or vomiting Genitourinary Genitourinary ED: Denies dysuria or hematuria Musculoskeletal Musculoskeletal: Denies back pain or neck pain Integumentary Denies abscess or rash Neurologic Neurologic: Denies headache(s), paresthesias or weakness Psychiatric Psychiatric: Denies anxiety or suicidal thoughts EXAM Physical Exam Const Vital Signs: 01/27/22 13:00 01/27/22 13:28 01/27/22 14:16 Temperature 97.0 F L Temperature Source Temporal Pulse Rate 84 75 Respiratory Rate 24 H 18 Respiratory Effort Normal Non-Labored Blood Pressure 142/53 H Blood Pressure Mean 82 Pulse Ox 95 98 Oxygen Delivery Method Room Air Nasal Cannula Oxygen Flow Rate (L/min) 3 01/27/22 15:10 01/27/22 15:11 01/27/22 17:53 Temperature 97 F L Temperature Source Temporal Pulse Rate 76 81 Respiratory Rate 18 16 Respiratory Effort Blood Pressure 127/52 H 138/66 H Blood Pressure Mean 77 90 Pulse Ox 97 97 97 Oxygen Delivery Method Nasal Cannula Nasal Cannula Nasal Cannula Oxygen Flow Rate (L/min) 3 3 3 01/27/22 18:34 Temperature Temperature Source Pulse Rate 72 Respiratory Rate Respiratory Effort Blood Pressure 136/65 H Blood Pressure Mean 88 Pulse Ox Oxygen Delivery Method Oxygen Flow Rate (L/min) Positive well nourished and well developed General Appearance ED: well developed and NAD Nutritional Appearance: morbidly obese HEENT Reports moist mucous membranes normocephalic and atraumatic Eyes PERRL and EOMs intact bilaterally Neck full ROM, no lymphadenopathy, supple and no meningeal signs Neck Narrative: No JVD seen but exam limited by morbid obesity Resp normal respiratory effort Resp Narrative: Expiratory wheezing throughout all marie with some rales in the left base Cardio regular rate and regular rhythm Cardio Narrative: Soft systolic ejection murmur LLSB GI non-tender and non-distended Auscultation: normoactive bowel sounds Palpation: soft Back/Spine no CVA tenderness General Back: other FROM Extremity normal to inspection General Extremety ED: Yes edema; Negative for pulses abnormal or tenderness General Extremity: edema bilateral lower extremity Details: moderate (Symmetric); Negative for pulses abnormal Neuro oriented x3, CN's II-XII intact bilaterally and no sensory deficits noted Sensorium / Orientation: awake and alert Motor Exam: strength 5/5 throughout Skin no rashes or lesions noted and no wounds MDM MDM MDM Narrative Medical decision making narrative: At rest on her 2 L of home oxygen patient is 95-97%, vital signs of remained stable although she is mildly tachypnea, she is in no respiratory distress. She was treated with an albuterol treatment which helped her breathing a little, temporarily. Her chest x-ray was read by radiology as negative, but 1 view on my interpretation shows possible atelectasis versus infiltrate left lower lobe. She does have a leukocytosis but she has been on prednisone recently. Her BNP is normal at 43.8, ruling against acute decompensated congestive heart failure. Given the chest x-ray interpretation I obtained a CT of the chest. It shows interstitial abnormalities as well as a left pleural-based nodule with associated small effusion as shown below. Patient states that sounds like it may be my pulmonary sarcoidosis. I agree with this actually, the patient appears to have regular lung CT screening for lung cancer that has been negative. The patient confirms that as she has tapered off of her prednisone which ended a couple days ago, she has gotten worse. This occurred on the previous dosing of prednisone earlier in the month as well. She is also very concerned that she is having lots of sinus congestion and postnasal drip despite taking fluticasone daily and all of these courses of antibiotics, in addition to the edema which I suspect is probably more related to the recurrent dosing of prednisone. She states that her drilling machine operator has advised her not to go on diuretics because she only has 1 kidney functioning. Today her creatinine is 1.68 and her EGFR is 32. Her drilling machine operator Dr. Ribeiro wants her to be over 30. She states she has tried compression stockings in the past and they have not helped, she does drink a lot of water and knows that she needs to cut back on that which I agree with. She is not hypoxic, she is speaking to me in full sentences after her albuterol aerosol and I do not think she has a medical reason for admission and she is comfortable going home and following up at this time. Discussed with Dr. Rodriguez with nephrology, we discussed her creatinine, EGFR, and her blood pressure and pulmonary status. He recommended HCTZ 25 mg daily temporarily until she can follow-up with them in the office. Upon looking at her medication list, she is already on HCTZ 25 mg as part of her Maxide. I discussed with Dr. Delgado her nut steamer. We discussed her test results, he is in agreement with the logic above in addition to referral to nephrology and ENT, and agrees to see her in follow-up at the end of this week, we discussed a wait and see prescription for prednisone which the patient is amenable to, and he recommends a 5-day taper if she decided to do it which will be prescribed to her. He also recommended giving her our nebulizer set up and a new prescription for DuoNeb treatments as possibly her medication and equipment is old at home if she is still wheezing a lot after these treatments. She states she just filled the DuoNeb and it is new, and her equipment is similar to what we have here, and she feels like it is really helping after a treatment but it is just temporary. Patient has a history of CONCEPCION and pulmonary hypertension, she has tried treatments for both of those, she states that both times she was on CPAP she ended up with a terrible lung infection that hospitalized her for weeks including 1 time with a lung abscess. With the other medication for pulmonary hypertension, she had increased swelling and dyspnea for the whole time she was on it, a week, so she does not want to be on that anymore either. We discussed all of her medical issues and how they are intertwined here, and difficult to fix especially with her chronic kidney disease, but she has no catastrophic issues with any of those that require admission at this time and she is understanding of that. For now in addition to the prednisone prescription, I recommend decreasing her fluid intake by 25-33% which she feels she is able to do, she just ordered a recliner to try to elevate her legs more than she has been able to, and she already has a hospital bed to sleep in a more reclined position. She is amenable to this plan in addition to continuing her duo nebs as needed. Lab Data Attestation: I reviewed the patient's lab results. Labs: Laboratory Results - last 24 hr 01/27/22 01/27/22 01/27/22 13:20 13:20 13:20 WBC 16.2 H RBC 4.08 L Hgb 12.8 Hct 39.4 MCV 96.6 MCH 31.4 MCHC 32.5 RDW Std Deviation 53.2 H RDW Coeff of Jazzmine 14.8 H Plt Count 228 MPV 10.0 Neut % (Auto) Not Reportable Absolute Neuts (auto) 4.8 Absolute Lymphs (auto) 1.13 Total Counted 100 Neutrophils % (Manual) 77 H Band Neutrophils % 7 H Lymphocytes % (Manual) 7 L Monocytes % (Manual) 2 Eosinophils % (Manual) 1 Metamyelocytes % 4 H Myelocytes % 1 H Other Cells % 1 Diff Path Review May foll Platelet Estimate ADEQUATE RBC Morphology NORM C+C Sodium 137 Potassium 4.7 Chloride 106 Carbon Dioxide 26.0 Anion Gap 5 BUN 44 H Creatinine 1.68 H Estim Creat Clear Calc 22.06 Est GFR (MDRD) Af Amer 39 L Est GFR (MDRD) Non-Af 32 L BUN/Creatinine Ratio 26.2 H Glucose 104 Calcium 9.9 Troponin I High Sens 22 B-Natriuretic Peptide 43.8 Radiography Diagnostic Testing: Clinical Impression(s) from Imaging Studies Chest X-Ray 01/27/22 13:54 IMPRESSION: No interval change Electronically Signed: Randall Turcios MD at 14:27 EST , Chest CT 01/27/22 16:32 IMPRESSION: Chronic interstitial changes in both lung marie with calcified granulomata and nonspecific pleural thickening. There is a small left pleural effusion with a pleural based noncalcified 1.98 x 1.51 cm nodule in the left lower lobe on axial image 87. Further evaluation with PET/CT scan or biopsy recommended No organized infiltrate Calcified coronary vessels No suspicious adenopathy Degenerative bony changes Electronically Signed: Randall Turcios MD at 17:20 EST , EKG Initial EKG: Attestation: I personally reviewed and interpreted this EKG as follows: Interpretation: Sinus Rhythm, No Acute Injury Pattern and RBBB Prior EKG tracings: available for review Prior: Unchanged Discharge Plan Triage Chief Complaint: Shortness of Breath ED Provider: Rafael Gates Dx/Rx/DC Orders Clinical Impression: COPD exacerbation, Secondary pulmonary arterial hypertension, Chronic kidney disease, Peripheral edema, Sinus congestion Instructions: ED COPD Flare, ED Lymphedema Prescriptions: New prednisone 10 MG tablet 10 mg PO UD Qty: 13 RF: 0 No Action fluticasone propion-salmeterol [Advair Diskus] 500-50 mcg/dose blister with device 1 inh INHALATION BID RF: 0 fluconazole 150 mg tablet 150 mg PO Q3D PRN (Reason: yeast) RF: 0 albuterol sulfate 90 mcg/actuation HFA aerosol inhaler 2 puff INHALATION Q4H PRN (Reason: sob) RF: 0 triamterene-hydrochlorothiazid 37.5-25 mg tablet 1 tab PO DAILY RF: 0 ammonium lactate 12 % cream 1 applic TOPICAL DAILY PRN (Reason: Dry Skin) RF: 0 acetaminophen [Tylenol Arthritis Pain] 650 mg tablet extended release 650 mg PO Q12H RF: 0 aspirin 81 mg tablet,delayed release (DR/EC) 81 mg PO DAILY Qty: 1 RF: 0 diltiazem HCl 180 mg capsule,extended release 24 hr 180 mg PO DAILY Qty: 90 RF: 3 insulin aspart U-100 100 unit/mL (3 mL) insulin pen 8 unit subcut BREAKFAST RF: 0 azelastine 137 mcg (0.1 %) aerosol,spray 137 mcg intranasal BID RF: 0 insulin glargine 100 unit/mL (3 mL) insulin pen 36 unit SC QPM RF: 0 denosumab 60 mg/mL syringe 60 mg subcut [id number] Qty: 1 RF: 1 fluticasone propionate 1 SPRAY spray,suspension 2 spray NASAL DAILY PRN PRN (Reason: Congestion) RF: 0 febuxostat 40 MG tablet 40 mg PO DAILY RF: 0 cholecalciferol (vitamin D3) 25 mcg (1,000 unit) tablet 4,000 unit PO DAILY RF: 0 cyanocobalamin (vitamin B-12) 1,000 mcg tablet 1,000 mcg PO DAILY RF: 0 montelukast 10 MG tablet 10 mg PO QHS RF: 0 pantoprazole 40 mg tablet,delayed release (DR/EC) 40 mg PO BID RF: 0 tramadol 50 MG tablet 50 mg PO Q8H PRN (Reason: Pain Score 4-5) Qty: 9 RF: 0 insulin aspart U-100 [Novolog Flexpen U-100 Insulin] 100 unit/mL (3 mL) insulin pen 8 unit SUBCUT LUNCH RF: 0 insulin aspart U-100 [Novolog Flexpen U-100 Insulin] 100 unit/mL (3 mL) insulin pen 14 unit SUBCUT DINNER RF: 0 loratadine [Claritin] 10 mg Tablet 10 mg PO DAILY RF: 0 Januvia 50 mg Tablet 50 mg PO DAILY RF: 0 fenofibric acid (choline) [Trilipix] 135 mg Capsule,Delayed Release(Dr/Ec) 135 mg PO DAILY RF: 0 cimetidine [Tagamet] 200 mg Tablet 200 mg PO DAILY RF: 0 Myrbetriq 50 mg Tablet Extended Release 24 Hr 50 mg PO DAILY RF: 0 polyethylene glycol 3350 [Miralax] 17 gram Powder In Packet 17 g PO BID RF: 0 Spiriva Respimat 1.25 mcg/actuation Mist 2 puff INHALATION DAILY RF: 0 ipratropium-albuterol 0.5 mg-3 mg(2.5 mg base)/3 mL solution for nebulization 3 ml inhalation Q4H PRN (Reason: wheezing) Qty: 90 RF: 0 losartan 50 mg tablet 100 mg PO DAILY RF: 0 Primary Care Provider: Veronica Oquendo Referrals: Veronica Oquendo DO [Primary Care Provider] - Kemar Delgado MD [STAFF PHYSICIAN] - As soon as possible (call for appt regarding subacute-chronic sinus congestion despite 3 rounds of antibiotics/prednisone/fluticasone) Suzanne Moore MD [STAFF PHYSICIAN] - As soon as possible (call for appt) Octavio Delgado MD [STAFF PHYSICIAN] - 01/31/22 (call for appt & time) Activity Restrictions/Additional Instructions: -Decrease your fluid intake by 25-33%, equating to about 3 of your 16 ounce tumbler falls of water/fluids -Elevate your legs as much as possible, you may also try the wraps that you have -If you feel your breathing is getting worse and you really need the prednisone, fill it and take it as prescribed until finished -Make follow-up appointments as above Disposition Disposition: Home, Self Care
--- NOTE | 2022-01-27 16:32 | CT_ITS ---
STUDY: CT CHEST WITHOUT CONTRAST REASON FOR EXAM: Female, 71 years old. Fever and cough, atypical chest pain RADIATION DOSAGE (If Supplied By Facility): CTDIvol = ( 20.02 ) mGy, DLP = ( 715.22 ) mGycm TECHNIQUE: Transaxial imaging was performed without the administration of intravenous contrast material. Multiplanar coronal and sagittal images were reformatted. Individualized dose optimization techniques were used for this CT. COMPARISON: Previous plain films FINDINGS: The lung windows show chronic interstitial changes in both lung marie with nonspecific pleural thickening in the apices, worse on the left than the right. There are scattered calcified granulomata but no organized infiltrate. There is a noncalcified, pleural-based lobulated nodule in the left lower lobe measuring 1.98 x 1.51 cm. Soft tissue windows show normal-sized thyroid gland with multiple calcifications in the right lobe. No suspicious adenopathy. There are calcified coronary vessels. No pericardial effusion, there is a small left pleural effusion. Normal hilar regions. Normal unenhanced pulmonary arteries. Peripheral calcifications in the thoracic aorta without aneurysm or dissection. There are multi-level degenerative changes of the thoracic spine. There is no demonstrated abnormality of the visualized upper abdomen. CT/Chest without Contrast IMPRESSION: Chronic interstitial changes in both lung marie with calcified granulomata and nonspecific pleural thickening. There is a small left pleural effusion with a pleural based noncalcified 1.98 x 1.51 cm nodule in the left lower lobe on axial image 87. Further evaluation with PET/CT scan or biopsy recommended No organized infiltrate Calcified coronary vessels No suspicious adenopathy Degenerative bony changes Electronically Signed: Randall Turcios MD at 17:20 EST ,
[2022-01-27 17:53] VITALS: BP 138/66; PULSE 81; RESP 16; O2SAT 97
[2022-01-27 18:34] VITALS: BP 136/65; PULSE 72
[2022-01-29 14:26] LABS: Pathologist Review Reviewed
== END 2022-01-27 19:14 | disposition home or self-care (01) ==
PROVIDERS: Emergency Provider Emergency Medicine; PCP Internal Medicine; Visit Provider Emergency Medicine
DX: J44.1 Chronic obstructive pulmonary disease with (acute) exacerbation (principal); I27.21 Secondary pulmonary arterial hypertension; E11.22 Type 2 diabetes mellitus with diabetic chronic kidney disease; I48.0 Paroxysmal atrial fibrillation; E66.01 Morbid (severe) obesity due to excess calories; D86.0 Sarcoidosis of lung; Z79.4 Long term (current) use of insulin; N18.30 Chronic kidney disease, stage 3 unspecified; I12.9 Hypertensive chronic kidney disease with stage 1 through stage 4 chronic kidney disease, or unspecified chronic kidney disease; I87.2 Venous insufficiency (chronic) (peripheral); E78.5 Hyperlipidemia, unspecified; G47.33 Obstructive sleep apnea (adult) (pediatric); K21.9 Gastro-esophageal reflux disease without esophagitis; M81.0 Age-related osteoporosis without current pathological fracture; M10.9 Gout, unspecified; R09.81 Nasal congestion; Z91.19 Patient's noncompliance with other medical treatment and regimen; Z99.81 Dependence on supplemental oxygen; Z79.82 Long term (current) use of aspirin; Z79.84 Long term (current) use of oral hypoglycemic drugs; Z79.899 Other long term (current) drug therapy; Z87.891 Personal history of nicotine dependence
CPT/HCPCS: 71045; 71250; 80048; 83880; 84484; 85025; 87426; 87804; 93005; 94640; 99285; A4216

== ENCOUNTER 2022-02-03 09:13 | Emergency (ER) | payer MEDICARE, OTHER, SELFPAY ==
[2022-02-03 09:14] VITALS: BP 156/57; PULSE 102; RESP 22; TEMP 37; O2SAT 94; BMI 40.4
[2022-02-03 09:17] VITALS: BP 156/57; PULSE 102; RESP 22; TEMP 37; O2SAT 94
--- NOTE | 2022-02-03 09:43 | ED.VIS.DYS ---
HPI History of Present Illness Chief Complaint: Shortness of Breath Narrative Narrative: Patient presents with cough which is somewhat productive, shortness of breath from home. She is on home oxygen for COPD and pulmonary hypertension. She tells me she did have a temperature of 99 at home last night but took some Tylenol. No chest pain. No back pain. She does have some right-sided anterior rib pain. No pleuritic component. She has bilateral lower extremity edema which is chronic and has not changed. [facility] Medical History Allergic rhinitis Asthma Chronic kidney disease Chronic obstructive lung disease Chronic renal failure, stage 3 (moderate) Compression fracture of L1 vertebra Constipation Debility Diabetes Diabetes mellitus type 2 in obese Dysphagia Essential (primary) hypertension GERD (gastroesophageal reflux disease) Gout Hyperlipidemia Hyperuricemia Intractable low back pain L1 vertebral fracture Leukocytosis Lung abscess Morbid obesity Muscle spasm Noncompliance with CPAP treatment Obesity Obesity (BMI 30-39.9) Obstructive sleep apnea On home O2 Osteopenia Osteoporosis Osteoporosis Overactive bladder Paroxysmal atrial fibrillation Pneumonia Right bundle branch block (RBBB) Sarcoidosis Secondary pulmonary arterial hypertension Type 2 diabetes mellitus Venous insufficiency of both lower extremities Home Medications fluticasone propionate 2 spray NASAL DAILY PRN PRN 06/21/17 [History Last Taken 11/19/20] febuxostat 40 mg PO DAILY 12/30/18 [History Last Taken 11/19/20] fluticasone 500 mcg-salmeterol 50 mcg/dose blistr powdr for inhalation 1 inh INHALATION BID 07/17/20 [History Last Taken 11/19/20] montelukast 10 mg PO QHS 11/19/20 [History Last Taken 11/18/20] tramadol 50 mg PO Q8H PRN #9 tab 12/05/20 [Rx Last Taken Unknown] acetaminophen 650 mg tablet,extended release 650 mg PO Q12H tab 02/08/21 [History Last Taken Unknown] albuterol sulfate 90 mcg/actuation aerosol inhaler 2 puff INHALATION Q4H PRN g 02/08/21 [History Last Taken Unknown] ammonium lactate 12 % topical cream 1 applic TOPICAL DAILY PRN 02/08/21 [History Last Taken Unknown] aspirin 81 mg tablet,delayed release 81 mg PO DAILY #1 tab 02/08/21 [Rx Last Taken Unknown] cyanocobalamin (vitamin B-12) 1,000 mcg tablet 1,000 mcg PO DAILY tab 02/08/21 [History Last Taken Unknown] fluconazole 150 mg tablet 150 mg PO Q3D PRN 02/08/21 [History Last Taken Unknown] pantoprazole 40 mg tablet,delayed release 40 mg PO BID tab 02/08/21 [History Last Taken Unknown] triamterene 37.5 mg-hydrochlorothiazide 25 mg tablet 1 tab PO DAILY tab 02/08/21 [History Last Taken Unknown] losartan 50 mg tablet 100 mg PO DAILY tab 07/02/21 [History Last Taken Unknown] cholecalciferol (vitamin D3) 25 mcg (1,000 unit) tablet 4,000 unit PO DAILY tab 07/22/21 [History Last Taken Unknown] insulin aspart U-100 100 unit/mL (3 mL) subcutaneous pen 8 unit SUBCUT BREAKFAST ml 07/22/21 [History Last Taken Unknown] insulin aspart U-100 [Novolog Flexpen U-100 Insulin] 8 unit SUBCUT LUNCH 08/08/21 [History Last Taken Unknown] insulin aspart U-100 [Novolog Flexpen U-100 Insulin] 14 unit SUBCUT DINNER 08/08/21 [History Last Taken Unknown] diltiazem HCl 180 mg capsule,24 hr,extended release 180 mg PO DAILY #90 cap 09/10/21 [Rx Last Taken Unknown] azelastine 137 mcg (0.1 %) nasal spray aerosol 137 mcg INTRANASAL BID 11/19/21 [History Last Taken Unknown] denosumab 60 mg/mL subcutaneous syringe 60 mg SUBCUT [id number] #1 ml 11/19/21 [Rx Last Taken Unknown] insulin glargine 100 unit/mL (3 mL) subcutaneous pen 36 unit SC QPM ml 11/19/21 [History Last Taken Unknown] cimetidine [Tagamet] 200 mg PO DAILY 01/14/22 [History Last Taken Unknown] fenofibric acid (choline) [Trilipix] 135 mg PO DAILY 01/14/22 [History Last Taken Unknown] ipratropium-albuterol 3 ml INHALATION Q4H PRN #90 ml 01/14/22 [Rx Last Taken Unknown] loratadine [Claritin] 10 mg PO DAILY 01/14/22 [History Last Taken Unknown] mirabegron [Myrbetriq] 50 mg PO DAILY 01/14/22 [History Last Taken Unknown] polyethylene glycol 3350 [Miralax] 17 g PO BID 01/14/22 [History Last Taken Unknown] sitagliptin [Januvia] 50 mg PO DAILY 01/14/22 [History Last Taken Unknown] tiotropium bromide [Spiriva Respimat] 2 puff INHALATION DAILY 01/14/22 [History Last Taken Unknown] prednisone 10 mg PO UD #13 tab 01/27/22 [Rx Last Taken Unknown] levofloxacin 750 mg PO DAILY #4 tab 02/03/22 [Rx Last Taken Unknown] Allergy/AdvReac Type Severity Reaction Status Date / Time clindamycin Allergy Rash Verified 01/27/22 12:59 insulin detemir Allergy Rash Verified 01/27/22 12:59 [From Levemir U-100 Insulin] ciprofloxacin AdvReac Mild Upset Verified 01/27/22 12:59 Stomach amoxicillin trihydrate AdvReac Nausea Verified 01/27/22 12:59 [From Augmentin] morphine AdvReac Nausea Verified 01/27/22 12:59 potassium clavulanate AdvReac Nausea Verified 01/27/22 12:59 [From Augmentin] Family History Father Hypertension Colon cancer Cancer lung Mother Hypertension Heart disease Diabetes Surgical History History of cholecystectomy History of knee replacement procedure of left knee History of laminectomy History of right and left heart catheterization (05/04/20) Social History Smoking Status: Former smoker how long ago did patient quit smokin years ago alcohol intake: never substance use type: does not use caffeine: Yes Type: coffee Number of servings: 2 ROS ROS ED ROS Narrative Past medical history: It is extensive, and includes COPD, chronic kidney disease, edema, history of COVID-19, A. fib, hypertension, hyperlipidemia, pulmonary hypertension, diabetes, CONCEPCION. Medications: Reviewed Social history: Noncontributory Review of systems: All systems negative except as indicated General: Subjective fevers Eyes: No visual changes ENT: No upper airway congestion, normal voice Neck: No neck pain Cardiovascular: No left-sided chest pain some right lower rib pain Respiratory: Shortness of breath and cough as in HPI Gastrointestinal: No abdominal pain, nausea vomiting or diarrhea Genitourinary: No dysuria Musculoskeletal: Denies myalgias. Lower extremity edema as in HPI Skin: No rash Neurological: No memory loss, confusion or any focal weakness Psych: No recent behavioral changes Hematologic: No easy bleeding or easy bruising EXAM Physical Exam Narrative Exam Narrative: Physical exam General: Patient appears chronically ill, she is relatively comfortable in the room. Head: Normocephalic, Atraumatic Eyes: Conjunctiva not pale ENT: Moist mucous membranes Neck: Supple, Nontender, No lymphadenopathy Cardiovascular: Regular rate, Regular rhythm Respiratory: Bilateral end expiratory wheezing, she is slightly tachypneic and speaking in full sentences. No obvious retractions Chest wall: She has right anterior axillary line tenderness in the lower ribs. No step-offs. Abdomen: Soft, Nontender, Nondistended Back: Nontender, Normal Inspection. Negative for: CVA tenderness Extremities: Nontender, bilateral lower extremity edema. Skin: Normal color, No rash Neurological: Alert, Normal Strength, Normal Sensation Psychological: Normal affect Const Vital Signs: 02/03/22 09:14 02/03/22 09:17 02/03/22 09:57 Temperature 98.6 F 98.6 F Temperature Source Oral Oral Pulse Rate 102 H 102 H 94 Respiratory Rate 22 H 22 H 22 H Respiratory Effort Short of Breath Respiratory Depth Deep Respiratory Pattern Hyperpnea Tachypnea Blood Pressure 156/57 H 156/57 H Blood Pressure Mean 90 90 Pulse Ox 94 94 Oxygen Delivery Method Nasal Cannula Nasal Cannula Oxygen Flow Rate (L/min) 4 4 02/03/22 12:13 02/03/22 12:21 02/03/22 13:04 Temperature 97.2 F L Temperature Source Oral Pulse Rate 99 98 94 Respiratory Rate 21 H 26 H 24 H Respiratory Effort Respiratory Depth Respiratory Pattern Tachypnea Blood Pressure 138/62 H 136/58 H Blood Pressure Mean 87 Pulse Ox 93 95 Oxygen Delivery Method Nasal Cannula Nasal Cannula Oxygen Flow Rate (L/min) 4 2 MDM MDM MDM Narrative Medical decision making narrative: Patient significantly improved, I talked to her chestnut tanner who suggested ordering sputum cultures, I will also place her on Levaquin since she does have frequent aspiration and frequent pneumonia. She appears well and I believe she is stable for discharge. Lab Data Labs: Laboratory Results - last 24 hr 02/03/22 02/03/2202/03/22 09:31 09:31 09:31 WBC 13.9 H RBC 3.85 L Hgb 12.0 Hct 36.0 L MCV 93.5 MCH 31.2 MCHC 33.3 RDW Std Deviation 50.6 H RDW Coeff of Jazz[place] 14.8 H Plt Count 210 MPV 9.7 Immature Gran % (Auto) 2.500 H Neut % (Auto) 81.2 H Lymph % (Auto) 6.0 L [place] % (Auto) 9.6 Eos % (Auto) 0.4 Baso % (Auto) 0.3 Absolute Neuts (auto) 11.3 H Absolute Lymphs (auto) 0.84 Nucleated RBC % 0.1 Sodium 140 Potassium 4.6 Chloride 104 Carbon Dioxide 32.0 Anion Gap 4 L BUN 61 H Creatinine 2.27 H Estim Creat Clear Calc 17.98 Est GFR (MDRD) Af Amer 27 L Est GFR (MDRD) Non-Af 23 L BUN/Creatinine Ratio 26.9 H Glucose 138 H Calcium 11.1 H Total Bilirubin 0.60 AST 19 ALT 44 Alkaline Phosphatase 38 L Troponin I High Sens 24 B-Natriuretic Peptide 48.1 Total Protein 6.5 Albumin 3.4 Globulin 3.1 Albumin/Globulin Ratio 1.1 Radiography Diagnostic Testing: Clinical Impression(s) from Imaging Studies Chest X-Ray 02/03/22 10:10 IMPRESSION: Improved aeration as compared to prior study. Mild residual changes persist likely worse on the left base. Electronically Signed: Anam Larios MD at 10:42 EST , Discharge Plan Triage Chief Complaint: Shortness of Breath ED Provider: Yosi Chen Dx/Rx/DC Orders Clinical Impression: COPD (chronic obstructive pulmonary disease), Breath shortness Instructions: Chronic Lung Disease ... Prescriptions: New levofloxacin 750 mg tablet 750 mg PO DAILY Qty: 4 RF: 0 No Action fluticasone propion-salmeterol [Advair Diskus] 500-50 mcg/dose blister with device 1 inh INHALATION BID RF: 0 fluconazole 150 mg tablet 150 mg PO Q3D PRN (Reason: yeast) RF: 0 albuterol sulfate 90 mcg/actuation HFA aerosol inhaler 2 puff INHALATION Q4H PRN (Reason: sob) RF: 0 triamterene-hydrochlorothiazid 37.5-25 mg tablet 1 tab PO DAILY RF: 0 ammonium lactate 12 % cream 1 applic TOPICAL DAILY PRN (Reason: Dry Skin) RF: 0 acetaminophen [Tylenol Arthritis Pain] 650 mg tablet extended release 650 mg PO Q12H RF: 0 aspirin 81 mg tablet,delayed release (DR/EC) 81 mg PO DAILY Qty: 1 RF: 0 diltiazem HCl 180 mg capsule,extended release 24 hr 180 mg PO DAILY Qty: 90 RF: 3 insulin aspart U-100 100 unit/mL (3 mL) insulin pen 8 unit subcut BREAKFAST RF: 0 azelastine 137 mcg (0.1 %) aerosol,spray 137 mcg intranasal BID RF: 0 insulin glargine 100 unit/mL (3 mL) insulin pen 36 unit SC QPM RF: 0 denosumab 60 mg/mL syringe 60 mg subcut [id number] Qty: 1 RF: 1 fluticasone propionate 1 SPRAY spray,suspension 2 spray NASAL DAILY PRN PRN (Reason: Congestion) RF: 0 febuxostat 40 MG tablet 40 mg PO DAILY RF: 0 cholecalciferol (vitamin D3) 25 mcg (1,000 unit) tablet 4,000 unit PO DAILY RF: 0 cyanocobalamin (vitamin B-12) 1,000 mcg tablet 1,000 mcg PO DAILY RF: 0 montelukast 10 MG tablet 10 mg PO QHS RF: 0 pantoprazole 40 mg tablet,delayed release (DR/EC) 40 mg PO BID RF: 0 tramadol 50 MG tablet 50 mg PO Q8H PRN (Reason: Pain Score 4-5) Qty: 9 RF: 0 insulin aspart U-100 [Novolog Flexpen U-100 Insulin] 100 unit/mL (3 mL) insulin pen 8 unit SUBCUT LUNCH RF: 0 insulin aspart U-100 [Novolog Flexpen U-100 Insulin] 100 unit/mL (3 mL) insulin pen 14 unit SUBCUT DINNER RF: 0 loratadine [Claritin] 10 mg Tablet 10 mg PO DAILY RF: 0 Januvia 50 mg Tablet 50 mg PO DAILY RF: 0 fenofibric acid (choline) [Trilipix] 135 mg Capsule,Delayed Release(Dr/Ec) 135 mg PO DAILY RF: 0 cimetidine [Tagamet] 200 mg Tablet 200 mg PO DAILY RF: 0 Myrbetriq 50 mg Tablet Extended Release 24 Hr 50 mg PO DAILY RF: 0 polyethylene glycol 3350 [Miralax] 17 gram Powder In Packet 17 g PO BID RF: 0 Spiriva Respimat 1.25 mcg/actuation Mist 2 puff INHALATION DAILY RF: 0 ipratropium-albuterol 0.5 mg-3 mg(2.5 mg base)/3 mL solution for nebulization 3 ml inhalation Q4H PRN (Reason: wheezing) Qty: 90 RF: 0 prednisone 10 MG tablet 10 mg PO UD Qty: 13 RF: 0 losartan 50 mg tablet 100 mg PO DAILY RF: 0 Primary Care Provider: Veronica Oquendo Referrals: Veronica Oquendo DO [Primary Care Provider] - 2 Days Octavio Delgado MD [STAFF PHYSICIAN] - 2 Days Disposition Disposition: Home, Self Care Discharge Date/Time: 02/03/22 13:05
[2022-02-03] MEDS: Ipratropium/Albuterol Sulfate 3 ML AMPUL.NEB INHALATION (09:56)
[2022-02-03 09:57] VITALS: PULSE 94; RESP 22
[2022-02-03 10:07] LABS: ALB/GLOB Ratio 1.1 RATIO (0.9-2.4); AST(SGOT) 19 U/L (15-37); Alanine Aminotransfer ALT/SGPT 44 U/L (13-56); Albumin, Serum 3.4 g/dL (3.2-5.0); Alkaline Phosphatase 38 U/L (45-117); Anion Gap 4 (5-15); BUN 61 mg/dL (7-18); BUN/Creat Ratio 26.9 RATIO (10-20); Calcium,Total 11.1 mg/dL (8.5-10.1); Chloride 104 mmol/L (98-107); Creatinine, Serum 2.27 mg/dL (0.55-1.02); EST Glomerular Filtration Rate 23 mL/min (>60); Est Glom Filt Rate - Afr Amer 27 mL/min (>60); Estimated Creatinine Clearance 17.98 ml/min; Globulin 3.1 g/dL (2.2-4.2); Glucose 138 mg/dL (74-106); Potassium 4.6 mmol/L (3.5-5.1); Protein, Total 6.5 g/dL (6.4-8.2); Sodium Level 140 mmol/L (136-145); Troponin-I HS 24 pg/mL (3.0-54.0)
[2022-02-03 10:09] LABS: Absolute Lymphocyte Count 0.84 X10^3/uL (0.83-4.51); Absolute Neutrophil Count 11.3 X10^3/uL (2.0-7.7); Basophil# 0.04 X10^3/uL; Basophil% 0.3 % (0-1); Eosinophil# 0.06 X10^3/uL; Eosinophils% 0.4 % (0-5); Lymphocyte # 0.84 X10^3/ul (0.83-4.51); Mean Corp Hgb Conc 33.3 g/dL (32-36); Mean Corpuscular Hgb 31.2 pg (27.0-32.0); Mean Corpuscular Volume 93.5 fL (81-99); Mean Platelet Vol. 9.7 fl (6.2-12.0); Monocyte# 1.33 X10^3/uL; Monocyte% 9.6 % (0-10); NRBC Flagged by Analyzer 0.1 % (0-5); Neutrophil % 81.2 % (47-70); Platelet Count 210 K/mm3 (150-450); RBC Distribution Width CV 14.8 % (11.6-14.6); RBC Distribution Width SD 50.6 fl (35.1-43.9); Red Blood Count 3.85 M/mm3 (4.2-5.4); White Blood Count 13.9 K/mm3 (4.4-11.0)
--- NOTE | 2022-02-03 10:10 | RAD_ITS ---
STUDY: X-RAY CHEST REASON FOR EXAM: Female, 71 years old. Sob TECHNIQUE: Single AP portable view of the chest. COMPARISON: Comparison is made with prior study dated 01/27/2022. FINDINGS: EKG electrodes are seen. Minimal residual changes persist at the lung bases likely more prominent on the left side as compared to prior study. Residual blunting of the left costophrenic angle. Normal size heart. Normal mediastinum and arthur. Normal visualized pulmonary arteries. There is atherosclerotic calcification of the aortic arch with tortuosity. There are diffuse degenerative changes of the visualized thoracic spine. Dextroscoliosis. Normal visualized ribs, clavicles, and shoulders. Small hiatal hernia. RAD/Chest 1 View (Portable) IMPRESSION: Improved aeration as compared to prior study. Mild residual changes persist likely worse on the left base. Electronically Signed: Anam Larios MD at 10:42 EST ,
[2022-02-03 10:31] LABS: BNP,B-Type NATRIURETIC PEPTIDE 48.1 pg/mL (0-100)
[2022-02-03 12:13] VITALS: BP 138/62; PULSE 99; RESP 21; TEMP 36.2; O2SAT 93
[2022-02-03] MEDS: Albuterol 2.5 MG/3 ML VIAL.NEB. INHALATION ×2 (12:20)
[2022-02-03 12:21] VITALS: PULSE 98; RESP 26
[2022-02-03] MEDS: levoFLOXacin 750 MG Tablet PO (12:56)
[2022-02-03 13:04] VITALS: BP 136/58; PULSE 94; RESP 24; O2SAT 95
--- NOTE | 2022-02-04 13:50 | CASEMGMT ---
SARA BARON ED follow-up: Date of ER visit: 02/03/2022 Presenting ER complaint: shortness of breath SARA BARON placed call to patient's telephone number listed on demographics. Male voice answered and states Sugey is sleeping at this time. Call back information provided and encouraged to return call with any questions, needs or concerns. SARA Snow CM
== END 2022-02-03 13:05 | disposition home or self-care (01) ==
PROVIDERS: Emergency Provider Emergency Medicine; PCP Internal Medicine; Visit Provider Emergency Medicine
DX: J44.9 Chronic obstructive pulmonary disease, unspecified (principal); I27.20 Pulmonary hypertension, unspecified; E11.22 Type 2 diabetes mellitus with diabetic chronic kidney disease; I48.0 Paroxysmal atrial fibrillation; E66.01 Morbid (severe) obesity due to excess calories; Z79.4 Long term (current) use of insulin; N18.30 Chronic kidney disease, stage 3 unspecified; I12.9 Hypertensive chronic kidney disease with stage 1 through stage 4 chronic kidney disease, or unspecified chronic kidney disease; M54.50 Low back pain, unspecified; Z87.891 Personal history of nicotine dependence; E78.5 Hyperlipidemia, unspecified; R60.0 Localized edema; Z99.81 Dependence on supplemental oxygen; R13.10 Dysphagia, unspecified; Z91.19 Patient's noncompliance with other medical treatment and regimen; G47.33 Obstructive sleep apnea (adult) (pediatric); Z79.82 Long term (current) use of aspirin; Z79.52 Long term (current) use of systemic steroids; Z86.16 Personal history of COVID-19; Z96.652 Presence of left artificial knee joint
CPT/HCPCS: 31720; 71045; 80053; 83880; 84484; 85025; 87040; 87070; 87077; 87184; 87186; 87205; 87426; 94640; 99285; A4216

== ENCOUNTER 2022-02-05 13:08 | Outpatient (CLI) | payer MEDICARE, OTHER, SELFPAY | END 2022-02-05 23:59 | disposition home or self-care (01) | LOC: LABSPEC 13:10 | PROVIDERS: PCP Internal Medicine; Referring Provider Internal Medicine Pulmonary Disease; Visit Provider Internal Medicine Pulmonary Disease | DX: J45.40 Moderate persistent asthma, uncomplicated (principal); R05.9 Cough, unspecified | CPT/HCPCS: 87070; 87077; 87101; 87205 ==

== ENCOUNTER 2022-02-10 13:59 | Outpatient (CLI) | payer MEDICARE, OTHER, SELFPAY ==
[2022-02-10 15:40] LABS: Hemoglobin 10.9 g/dL (12.0-15.0); Mean Corp Hgb Conc 31.1 g/dL (32-36); Mean Corpuscular Hgb 30.7 pg (27.0-32.0); Mean Corpuscular Volume 98.6 fL (81-99); Mean Platelet Vol. 9.6 fl (6.2-12.0); Platelet Count 287 K/mm3 (150-450); RBC Distribution Width CV 15.1 % (11.6-14.6); RBC Distribution Width SD 54.5 fl (35.1-43.9); Red Blood Count 3.55 M/mm3 (4.2-5.4); White Blood Count 9.2 K/mm3 (4.4-11.0)
[2022-02-10 16:07] LABS: Albumin, Serum 2.9 g/dL (3.2-5.0); BUN 29 mg/dL (7-18); BUN/Creat Ratio 13.9 RATIO (10-20); Calcium,Total 9.6 mg/dL (8.5-10.1); Chloride 106 mmol/L (98-107); Creatinine, Serum 2.08 mg/dL (0.55-1.02); EST Glomerular Filtration Rate 25 mL/min (>60); Est Glom Filt Rate - Afr Amer 30 mL/min (>60); Glucose 188 mg/dL (74-106); Magnesium 1.7 mg/dL (1.6-2.6); Phosphorus 1.9 mg/dL (2.5-4.9); Potassium 4.4 mmol/L (3.5-5.1); Sodium Level 138 mmol/L (136-145)
[2022-02-10 16:12] LABS: Vitamin D,25 Hydroxy 72.9 ng/mL
[2022-02-10 16:32] LABS: Microalbumin,Random Urine 12.1 mg/L (NO RANGE EST.)
[2022-02-11 08:29] LABS: PTHIN 60.1 pg/mL (18.4-80.1)
[2022-02-13 17:09] LABS: Vitamin D 1,25-Dihydroxy 66.1 pg/mL (19.9-79.3)
== END 2022-02-10 23:59 | disposition home or self-care (01) ==
LOC: MTLAB 14:01
PROVIDERS: PCP Internal Medicine; Referring Provider Internal Medicine Nephrology; Visit Provider Internal Medicine Nephrology
DX: E55.9 Vitamin D deficiency, unspecified (principal); N18.4 Chronic kidney disease, stage 4 (severe); D63.1 Anemia in chronic kidney disease; M10.9 Gout, unspecified
CPT/HCPCS: 36415; 80069; 82043; 82306; 82570; 82652; 83735; 83970; 84550; 85027

== ENCOUNTER 2022-02-26 12:32 | Outpatient (CLI) | payer MEDICARE, OTHER, SELFPAY ==
[2022-02-26 15:35] LABS: Albumin, Serum 3.6 g/dL (3.2-5.0); BUN 27 mg/dL (7-18); BUN/Creat Ratio 15.8 RATIO (10-20); Calcium,Total 10.2 mg/dL (8.5-10.1); Chloride 107 mmol/L (98-107); Creatinine, Serum 1.71 mg/dL (0.55-1.02); EST Glomerular Filtration Rate 31 mL/min (>60); Est Glom Filt Rate - Afr Amer 38 mL/min (>60); Glucose 133 mg/dL (74-106); Magnesium 1.6 mg/dL (1.6-2.6); Phosphorus 2.3 mg/dL (2.5-4.9); Potassium 4.2 mmol/L (3.5-5.1); Sodium Level 141 mmol/L (136-145)
== END 2022-02-26 23:59 | disposition home or self-care (01) ==
LOC: MTLAB 12:33
PROVIDERS: PCP Internal Medicine; Referring Provider Internal Medicine Nephrology; Visit Provider Internal Medicine Nephrology
DX: N18.4 Chronic kidney disease, stage 4 (severe) (principal)
CPT/HCPCS: 36415; 80069; 83735

== ENCOUNTER → 2022-03-25 | Outpatient (CLI) | payer MEDICARE, OTHER, SELFPAY ==
[2022-03-25 15:25] LABS: Hematocrit 39.2 % (37-47); Hemoglobin 12.4 g/dL (12.0-15.0); Mean Corp Hgb Conc 31.6 g/dL (32-36); Mean Platelet Vol. 9.4 fl (6.2-12.0); Platelet Count 291 K/mm3 (150-450); RBC Distribution Width CV 14.8 % (11.6-14.6); RBC Distribution Width SD 53.9 fl (35.1-43.9); White Blood Count 11.2 K/mm3 (4.4-11.0)
[2022-03-25 15:41] LABS: Albumin, Serum 3.8 g/dL (3.2-5.0); BUN 27 mg/dL (7-18); Calcium,Total 10.4 mg/dL (8.5-10.1); Chloride 108 mmol/L (98-107); Creatinine, Serum 1.69 mg/dL (0.55-1.02); EST Glomerular Filtration Rate 32 mL/min (>60); Est Glom Filt Rate - Afr Amer 38 mL/min (>60); Glucose 96 mg/dL (74-106); Magnesium 2.1 mg/dL (1.6-2.6); Phosphorus 2.1 mg/dL (2.5-4.9); Potassium 4.6 mmol/L (3.5-5.1); Sodium Level 140 mmol/L (136-145)
[2022-03-25 15:43] LABS: PTHIN 63.5 pg/mL (18.4-80.1); Vitamin D,25 Hydroxy 69.4 ng/mL
[2022-03-25 15:48] LABS: Microalbumin,Random Urine 16.8 mg/L (NO RANGE EST.); Microalbumin:Creatinine Ratio 21.8 mg/g CRE (<30 mg/g CRE)
== END | disposition home or self-care (01) ==
LOC: MTLAB 13:30
PROVIDERS: PCP Internal Medicine; Referring Provider Internal Medicine Nephrology; Visit Provider Internal Medicine Nephrology
DX: E55.9 Vitamin D deficiency, unspecified (principal); E11.22 Type 2 diabetes mellitus with diabetic chronic kidney disease; N18.4 Chronic kidney disease, stage 4 (severe); D63.1 Anemia in chronic kidney disease
CPT/HCPCS: 36415; 80069; 82043; 82306; 82570; 83735; 83970; 85027

== ENCOUNTER → 2022-04-17 | Outpatient (CLI) | payer MEDICARE, OTHER, SELFPAY ==
--- NOTE | 2022-04-17 09:27 | PR.HP_ITS ---
History of Present Illness Arrival date:: 04/17/22 Arrival time:: 08:00 Date of Referral:: 03/31/22 Date of Evaluation: 04/17/22 Referring Physician: DR DONNY RAY Primary Diagnosis: ASTHMA, PULMONARY HYPERTENSION, COPD m[facility]C Breathless Scale: When is the patient short of breath? Y/N Grade: Description of Breathlessness: 0 I only get breathless with strenuous exercise. 1 I get short of breath when hurrying on level ground or walking up a slight hill. 2 On level ground, I walk slower than people of the same age because of breathless, or have to stop for breath when walking at my own pace. 3 I stop for breath after walking 100 yards or after a few minutes on level ground. 4 I am too breathless to leave the house or I am breathless when dressing. Respiratory Problems: Yes: Retain Secretions, Limited Range of Motion, Fatigue, Wheezing, Able to Speak in Full Sentences, Ankle Swelling, Dyspnea with Activity, Dyspnea Lying Down Flat - Secretions Normal Color:: CLEAR Thick:: Yes Thin:: Yes Amount/Day:: 1 TSP Cough:: Yes PM: Yes Hx of Sleep Apnea: Yes Do you snore loudly (louder than talking or can be heard through closed doors)?: Yes History of Hypertension (for STOP score): Yes - NONCOMPLIANT WITH CPAP WILL NOT WEAR DUE TO SEVERE REACTION OF PNEUMONIA RELATED Home Medications: Home Medications fluticasone propionate 2 spray NASAL DAILY PRN PRN 06/21/17 febuxostat 40 mg PO DAILY 12/30/18 fluticasone 500 mcg-salmeterol 50 mcg/dose blistr powdr for inhalation 1 inh INHALATION BID 07/17/20 montelukast 10 mg PO QHS 11/19/20 tramadol 50 mg PO Q8H PRN #9 tab 12/05/20 acetaminophen 650 mg tablet,extended release 650 mg PO Q12H tab 02/08/21 albuterol sulfate 90 mcg/actuation aerosol inhaler 2 puff INHALATION Q4H PRN g 02/08/21 ammonium lactate 12 % topical cream 1 applic TOPICAL DAILY PRN 02/08/21 aspirin 81 mg tablet,delayed release 81 mg PO DAILY #1 tab 02/08/21 cyanocobalamin (vitamin B-12) 1,000 mcg tablet 1,000 mcg PO DAILY tab 02/08/21 fluconazole 150 mg tablet 150 mg PO Q3D PRN 02/08/21 pantoprazole 40 mg tablet,delayed release 40 mg PO BID tab 02/08/21 triamterene 37.5 mg-hydrochlorothiazide 25 mg tablet 1 tab PO DAILY tab 02/08/21 losartan 50 mg tablet 100 mg PO DAILY tab 07/02/21 cholecalciferol (vitamin D3) 25 mcg (1,000 unit) tablet 4,000 unit PO DAILY tab 07/22/21 insulin aspart U-100 100 unit/mL (3 mL) subcutaneous pen 8 unit SUBCUT BREAKFAST ml 07/22/21 insulin aspart U-100 [Novolog Flexpen U-100 Insulin] 8 unit SUBCUT LUNCH 08/08/21 insulin aspart U-100 [Novolog Flexpen U-100 Insulin] 14 unit SUBCUT DINNER 08/08/21 diltiazem HCl 180 mg capsule,24 hr,extended release 180 mg PO DAILY #90 cap 09/10/21 insulin glargine 100 unit/mL (3 mL) subcutaneous pen 36 unit SC QPM ml 11/19/21 fenofibric acid (choline) [Trilipix] 135 mg PO DAILY 01/14/22 ipratropium-albuterol 3 ml INHALATION Q4H PRN #90 ml 01/14/22 loratadine [Claritin] 10 mg PO DAILY 01/14/22 mirabegron [Myrbetriq] 50 mg PO DAILY 01/14/22 polyethylene glycol 3350 [Miralax] 17 g PO BID 01/14/22 sitagliptin [Januvia] 50 mg PO DAILY 01/14/22 tiotropium bromide [Spiriva Respimat] 2 puff INHALATION DAILY 01/14/22 furosemide 20 mg tablet 20 mg PO .COMPLEX 03/11/22 Allergies/Adverse Reactions: Allergies clindamycin Allergy (Verified 03/11/22 09:43) Rash insulin detemir [From Levemir U-100 Insulin] Allergy (Verified 03/11/22 09:43) Rash ciprofloxacin Adverse Reaction (Mild, Verified 03/11/22 09:43) Upset Stomach amoxicillin trihydrate [From Augmentin] Adverse Reaction (Verified 03/11/22 09:43) Nausea also yeast infection morphine Adverse Reaction (Verified 03/11/22 09:43) Nausea potassium clavulanate [From Augmentin] Adverse Reaction (Verified 03/11/22 09:43) Nausea Medical Utilization Do you use a peak flow meter at home?: No Do you use a spacer device with your inhalers?: No Number of emergency room visits in the last year?: 2 - SHORTNESS OF BREATH Do you see your physician on a regular schedule?: Yes How often?: YES Comments:: 3 MONTHS, EVERY 2 WEEKS WHEN REALLY SICK. Advanced Directives - Advanced Directives Power of Ship'S Officer: Yes Living Will: Yes Advance Directives Information Provided: No Advance Directives on File: No Past Medical History - Covid-19 Screening Fever: No Unexplained muscle aches: No Current respiratory symptoms: No - CHRONIC SHORTNESS OF BREATH Upper respiratory infections symptoms: No - LSAT WAS IN DECEMBER 2021 Gastro-intestinal symptoms: No Est-Jyml-Tljahd symptoms: No Has tested positive for COVID-19 in last 30 days: No Date of testin04/17/22 - HAS HAD TWO VACCINES AND ONE OF THE BOOSTERS Had contact w/person w/symptoms or Covid-19 (+) last 14 days: No Has High Risk Exposures ID'd by Health dept/Inf Control team: No 65 years or older:: Yes Lives in Assisted Living facility:: No Has a chronic lung disease or moderate to severe asthma:: Yes Has a serious heart condition:: Yes Immunocompromised:: No Severely obese (Body Mass Index of 40 or higher):: Yes Diabetic:: Yes Has chronic kidney disease undergoing dialysis:: Yes Has liver disease:: No Medical History: Past Medical History (Last Reviewed 03/11/22 @ 10:28 by Gabbi VARGAS, PA) Allergic rhinitis J30.9 Asthma J45.909 Chronic kidney disease N18.9 Chronic obstructive lung disease J44.9 mild Chronic renal failure, stage 3 (moderate) N18.3 Compression fracture of L1 vertebra S32.010A Constipation K59.00 Debility R53.81 Diabetes E11.9 Diabetes mellitus type 2 in obese E11.69, E66.9 Dysphagia R13.10 Essential (primary) hypertension I10 GERD (gastroesophageal reflux disease) K21.9 Gout M10.9 Hyperlipidemia E78.5 Hyperuricemia E79.0 Intractable low back pain M54.5 L1 vertebral fracture S32.019A Leukocytosis D72.829 Lung abscess J85.2 Morbid obesity E66.01 Muscle spasm M62.838 Noncompliance with CPAP treatment Z91.14 quit wearing CPAP 2 years lorenzana Obesity E66.9 Obesity (BMI 30-39.9) E66.9 Obstructive sleep apnea G47.33 On home O2 Z99.81 Osteopenia M85.80 Osteoporosis M81.0 Osteoporosis M81.0 Overactive bladder N32.81 Paroxysmal atrial fibrillation I48.0 Pneumonia J18.9 Right bundle branch block (RBBB) I45.10 Sarcoidosis D86.9 Secondary pulmonary arterial hypertension I27.21 mild per right heart cath 2020 Type 2 diabetes mellitus E11.9 Venous insufficiency of both lower extremities I87.2 Surgical History: Past Surgical History (Last Reviewed 03/11/22 @ 10:28 by Gabbi VARGAS, PA) History of cholecystectomy Z90.49 History of knee replacement procedure of left knee Z96.652 History of laminectomy Z98.890 History of right and left heart catheterization Onset Date: 05/04/20 Z98.890 Family History: Family History (Last Reviewed 02/03/22 @ 09:[address] Yosi Chne MD) Father Hypertension Colon cancer Cancer lung Mother Hypertension Heart disease Diabetes Social History - Smoking History Smoking Status: Former smoker Hx Smoking Cessation Date: 01/28/82 Hx Tobacco Use: Yes Hx Smoking Exposure: No - Alcohol Use Alcohol Usage: No - Substance Abuse Hx Substance Use: No - Occupation Occupation (List type of work in comments):: Retired - Hobbies, Recreation, Social Activities Hobbies: Other - PLANTS, CRAFTS, WORD PUZZLES Recreational Activities: I can hardly do any recreational activities Functioning ADL/IADL - Current Ability Current Ability: Independent Self-Care (e.g.,grooming, dressing, & bathing), Independent Ambulation, Independent Transfer, Independent Household tasks (e.g., light meal prep, laundry, shopping) - Pt Functioning Prior to Problem Prior Functioning: Self-Care (e.g.,grooming, dressing, & bathing): Independent, Ambulation: Independent, Transfer: Independent, Household tasks (e.g., light meal prep, laundry, shopping): Independent Social Environment - Status Marital Status: - Current Living Arrangements Living Environment:: Alone - Children How many children do you have?: 3 Do any of your children live nearby?: Yes - [place], [place], [place] - Safety Do you feel safe in your surroundings?: Yes - Assistance Do you need any assistance at home?: OCCASIONALLY, USE ELECTRIC SCOOTER/CANE Review of Systems Review of Systems: Right click = Denies (Slash). Left click = Reports ([place]) Respiratory: Reports: Cough, SOB at Rest, SOB upon Exertion, Appetite, Normal, Dizziness/Lightheadedness - WHEN FIRST GET UP IN THE MORNINGS, Fatigue, Sleep, Normal. Denies: Sexual changes Is Patient Pain Free?: No Pain Location: lower extremity - KNEES, HIPS AND LOWER BACK CHRONIC PAIN Pain Level: 02/06 Risk Factor Assessment - Vital Signs Temperature: 97.6 F Pulse Rate: 74 Pulse Rhythm: Regular Respiratory Rate: 18 Pulse Ox: 97 - 3 LITERS Blood Pressure: 128/74 - Diabetes Diabetic History: Type II, Medication Dependent, Insulin Dependent Nutrition Referral for Diabetes: Yes - Obesity Height: 5 ft 2 in Weight:: 216 lb Weight in Pounds: 216.0 lbs Weight Source: Estimated by Patient Body Mass Index (BMI): 39.4 Nutritional Referral for Obesity: Yes - Physical Activity Physical Inactivity: None Motivation - Motivation to Participate On a scale of 1 to 10, how prepared are you to commit to attending program?: 10 - VERY MOTIVATED What do you see as barriers to successfully being able to complete the program?: KNEES, HIPS, CHRONIC LOWER BACK PAIN What do you see as the benefits of succesfully completing the program? In other words, what do you hope to get out of participating in the program?: GETTING BETTER, BEING ABLE TO GET OUT AND ABOUT MORE Are there issues you are dealing with that will interfere with completing the program?: CHRONIC PAIN Do you have a spouse or signficant other, family or friends who will help supp ort you to complete the program?: YES Diagnostic Data Review - Pulmonary Function Test FEV1:: 1.24 - 81% PREDICTED FVC:: 1.78 - 80% PREDICTED FEV1/FVC%:: 70
[2022-04-17 09:44] VITALS: BP 128/74; PULSE 74; RESP 18; TEMP 36.4; O2SAT 97; BMI 39.4
--- NOTE | 2022-04-17 10:11 | PCM.PR.TP ---
General Information2 - General Information Admitting Diagnosis: ASTHMA, PULMONARY HYPERTENSION, COPD - Personal Learning Style/Barriers Personal Learning Style:: Audio/Visual, Written Barriers to Learning: Vision impaired, Hearing impaired Stage of change r/t lifestyle modifications: Action Educational Classes [place]: Breathing Retraining: Initial Assessment, Energy Conservation: Initial Assessment, Emotion Social Well Being: Initial Assessment, Nutrition: Initial Assessment - Education/Goals Individual Counseling: Initial Assessment: High Blood Pressure, Diabetes, Overweight/Obesity, Waist Circumference: <35 females <40 males, Sedentary Lifestyle [place] Patient Goals: Increase muscle strength: Initial Assessment, Experience less dyspnea: Initial Assessment, Improve energy level: Initial Assessment, Participate in home exercise: Initial Assessment, Improve the ability to cope with ADLs: Initial Assessment, Improve knowledge of lung disease: Initial Assessment, Understand how to use medications: Initial Assessment, Increase knowledge of oxygen use: Initial Assessment, Control panic/anxiety: Initial Assessment, Improve diet and nutrition: Initial Assessment, Improve my quality of life: Initial Assessment, Reduce Stress/relaxation techniques: Initial Assessment Core Components - Initial Core Components - 30 DAYS Core Components - 60 DAYS Core Components - 90 DAYS Core Components - Final Patient Health Questionnaire Initial Assessment 1. Little interest or pleasure in doing things: Not at all 2. Feeling down, depressed, or hopeless: Not at all 3. Trouble falling or staying asleep, or sleeping too much: Not at all 4. Feeling tired or having little energy: More than half the days 5. Poor appetite or overeating: More than half the days 6. Feeling bad about yourself -- or that you are a failure or have let yourself or your family down: Not at all 7. Trouble concentrating on things, such as reading the newspaper or watching television: Not at all 8. Moving or speaking so slowly that other people could have noticed. Or the opposite - being so fidgety or restless that you have been moving around a lot more than usual: Not at all 9. Thoughts that you would be better off , or of hurting yourself in some way: Not at all How difficult have these problems made it for you to do your work, take care of things at home, or get along with other people?: Somewhat difficult Total Score: 4 Knowledge Questionaire (BCKQ) - Information Information: [place] COPD Knowledge Questionnaire (BCKQ) This questionnaire is designed to find out what you know about your lung problem. It should be completed without help form anyone else. This usually takes between 10 and 20 minutes. Your answers will help us to find out what information you need to help you to understand and manage your lung condition. [facility] [place] which you think is the correct answer. - Questions b. COPD can only be confirmed by breathing tests: Don't know c. In COPD ther is usually gradual worsening over time: True d. In COPD oxygen levels in the blood are always low: False e. COPD is usually in people less than 40 years old: False Yolanda than 80% of COPD cases are caused by cigarette smoking: Don't know b. COPD can be caused by occupational dust exposure: True c. Longstanding asthma can develop into COPD: True d. COPD is commonly an inherited disease: Don't know e. Women are less vunerable to the effects of cigarette than men: False a. Swelling of the ankles is common in COPD:: True b. Fatigue [tiredness] is common in COPD: True c. Wheezing is common in COPD: True d. Crushing chest pain is common in COPD: True e. Rapid weight loss is common in COPD: True a. Severe breathlessness prevents travel by air: False b. Breathlessness can be worsened by eating large meals: False c. Breathlessness means that your oxygen levels are low: True d. Breathlessness is a normal response to exercise: Don't know e. Breathlessness is primarily caused by a narrowing of the bronchial tubes: True a. Coughing phlegm is a common symptom in COPD: True b. Clearing phlegm is more difficult if you get dehydrated: Don't know c. Bronchodilator inhalers can help clear phlegm: True d. Phlegm causes harm if swallowed: True e. Clearing phlegm can be assisted by breathing exercises: True a. Chest infections often cause coughing of blood: True b. Chest infection phlegm usually becomes coloured (ylw/grn): True cExerbations (episodes of worsening) can occur in the absence of chest infection: Don't know d. Chest infections are always accompanied by a high temperature: Don't know e. Steroid tablets should be taken whenever there is an exacerbation: Don't know aWalking excercises better than breathing to improve fitness: Don't know b. Exercise should be avoided as it strains the lungs: False c. Exercise can help maintain your bone density: True d. Exercise helps relieve depression: True e. Exercise should be stopped if it makes you breathless: Don't know a. Stopping smoking will reduce the risk of heart disease: True b. Stopping smoking will slow down further lung damage: True c. Stopping smoking is pointless as the damage is done: False d.Stopping smoking usually results in improved lung function: True eNicotine replacement therapy only available on prescription: Don't know a. A flu jab is recommended every year: True b. You can get flu from having a flu jab: True c. You can only have a flu jab if you are 65 or over: False d. A pneumonia jab protects against all forms of pneumonia: True e.You can have a pneumonia jab and a flu job on the same day: True a. Bronchodilators act quickly (within 10 minutes): False b. Both short & long acting bronchodilators can be taken on the same day: True c. Spacers (volumatic,nebuhaler,serochamber)should be dried w/atowel after washing: True d. A spacer device increases the medication to the lungs: True e. Tremor may be a side effect of bronchodilators: True a. To be effective, the course should last at least 10 days: Don't know b. Excessive use of antibiotics can cause resistant bacteria (germs): True c. Antibiotics will clear all chest infections: True d. Antibiotic treatment is necessary for an exacerbation (worsening) however mild: Don't know e. Seek advice if antibiotics cause severe diarrhoea: True a. Steroid tablets help strengthen muscles: Don't know b. Steroid tablets should be avoided if there is a chest infection: Don't know c. The risk of long-term side effects due to steroids is less w/short courses then w/continous treatment: Don't know dIndigestion is common side effect from using steroid tablet: Don't know e. Steroid tablets can increase your appetite: Don't know a. Inhaled steroids should be stopped if you are given steroid tablets: Don't know bSteroid inhalers can be used for rapid relief breathlessnes: True c. Spacer devices reduce the risk of getting thrush in the mouth: True d.Steroid inhaler should be taken before your bronchodilator: Don't know COPD Assessment Test [CAT] - Questions Never cough = 0, Cough all the time = 5: 2 No phlegm = 0, Chest full of phlegm = 5: 4 No chest tightness = 0, Chest very tight = 5: 3 No breathless w/exertion = 0, Very breathless w/exertion = 5: 5 No limitations w/activity = 0, Very limited w/activity = 5: 4 Confident leaving home = 0, Not at all confident = 5: 1 Sleep soundly = 0, Don't sleep soundly = 5: 1 Lots of energy = 0, No energy at all = 5: 4 Total CAT score:: 24 Self-Efficacy Initial Assessment We would like to know how confident you are in doing certain activities. Please select your confidence level for:: Select your confidence level for the following using the scale 1-10 where 1 is not at all confident and 10 is totally confident. Your score is the average of all 6 responses. Fatigue: How confident are you that you can keep the fatigue caused by your disease from interfering with the things you want to do? Select Number: 1 Physical Discomfort or Pain: How confident are you that you can keep the physical discomfort or pain of your disease from interfering with the things you want to do? Select Number: 1 Emotional Distress: How confident are you that you can keep the emotional distress caused by your disease from interfering with the things you want to do? Select Number: 1 Other Symptoms or Health Problems: How confident are you that you can keep other symptoms or health problems from interfering with the things you want to do? Select Number: 1 Different Tasks and Activities: How confident are you that you can do the different tasks and activities needed to manage your health condition so as to reduce your need to see a doctor? Select Number: 1 Medication: How confident are you that you can do things other than just taking medication to reduce how much your illness affects your everyday life? Select Number: 2 Total Score:: 1 Nutrition Survey - Nutrition Survey Initial Have you lost >10 lbs over the past 2 months without trying?: Yes Are you following a special diet at home for diabetes, low fat, or low salt?: No Are you interested in meeting with a dietitian for help understanding your diet?: No Do you eat less than 3 meals a day?: No Do you eat fatty meats (wilson, sausage, ribs, etc), fried foods, desserts, large amounts of salad dressings, margarine, butter, or cheese most days?: No Do you have food allergies? [Enter types in comment field]: No Do you eat in restaurants more than 3 times a week?: No Do you season food with salt, seasoning salt, or garlic salt?: No Do you used canned, boxed, frozen meals, or soups, seasoning packets?: Yes Total Score:: 2
== END | disposition home or self-care (01) ==
LOC: PR 07:56
PROVIDERS: PCP Internal Medicine; Referring Provider Internal Medicine Pulmonary Disease; Visit Provider Internal Medicine Pulmonary Disease
DX: I12.9 Hypertensive chronic kidney disease with stage 1 through stage 4 chronic kidney disease, or unspecified chronic kidney disease (principal); J44.9 Chronic obstructive pulmonary disease, unspecified; E11.22 Type 2 diabetes mellitus with diabetic chronic kidney disease; E11.69 Type 2 diabetes mellitus with other specified complication; Z68.41 Body mass index [BMI] 40.0-44.9, adult; E66.01 Morbid (severe) obesity due to excess calories; N18.30 Chronic kidney disease, stage 3 unspecified; E78.5 Hyperlipidemia, unspecified; Z87.891 Personal history of nicotine dependence; Z57.2 Occupational exposure to dust

== ENCOUNTER 2022-04-25 10:30 | Outpatient (RCR) | payer MEDICARE, OTHER, SELFPAY | END 2022-04-29 23:59 | LOC: PR 10:30 | PROVIDERS: PCP Internal Medicine; Referring Provider Internal Medicine Pulmonary Disease; Visit Provider Internal Medicine Pulmonary Disease | DX: J45.909 Unspecified asthma, uncomplicated (principal); I27.0 Primary pulmonary hypertension | CPT/HCPCS: 97150; G0239 ==

== ENCOUNTER → 2022-05-13 | Outpatient (CLI) | payer MEDICARE, OTHER, SELFPAY ==
--- NOTE | 2022-05-13 09:56 | RAD_ITS ---
STUDY: X-RAY - LEFT FOOT CLINICAL: Female, 71 years old. GOUT TECHNIQUE: 3 view(s) of the foot. COMPARISON: Comparison is made with prior study dated 05/31/2014. FINDINGS: There is an enthesophyte involving the posterior superior calcaneus at the site of insertion of the Achilles tendon. Normal visualized subtalar, talonavicular, calcaneocuboid, tarsal and tarsometatarsal articulations. Prior bunionectomy with resection of the proximal phalanx of the great toe. The mineralization of the metatarsals. There is degenerative arthrosis of the metatarsophalangeal joint of the hallux . Normal tibial and fibular sesamoid bones. Normal interphalangeal joint of the great toe. Normal phalanges of the great toe. Normal second through fifth metatarsophalangeal joints. Normal interphalangeal joints and phalanges of the lesser toes. Diffuse soft tissue swelling. RAD/Foot min 3 Views IMPRESSION: Diffuse soft tissue swelling. Prior bunionectomy with degenerative changes of the first metatarsal phalangeal joint. Electronically Signed: Anam Larios MD at 13:00 EDT ,
[2022-05-13 09:59] LABS: Bacteria 0 SEEN /hpf (None Seen); Mucous, Urine 0 SEEN /hpf (<or=2+); Red Blood Cells-Urine 0 SEEN /hpf (0-5)
[2022-05-13 12:36] LABS: Hematocrit 37.5 % (37-47); Hemoglobin 11.6 g/dL (12.0-15.0); Mean Corp Hgb Conc 30.9 g/dL (32-36); Mean Corpuscular Hgb 30.7 pg (27.0-32.0); Mean Corpuscular Volume 99.2 fL (81-99); Mean Platelet Vol. 10.2 fl (6.2-12.0); POSITIVE COUNT YES; POSITIVE DIFFERENTIAL YES; POSITIVE MORPHOLOGY YES; Platelet Count 299 K/mm3 (150-450); RBC Distribution Width SD 51.3 fl (35.1-43.9); Red Blood Count 3.78 M/mm3 (4.2-5.4)
[2022-05-13 12:38] LABS: Color, Urine Yellow (Yellow); Glucose, Dipstick 250 mg/dl (Normal); Ketone-Dipstick Negative (Negative); Leukocyte Esterase-Dipstick Negative /ul (Negative); Nitrite-Dipstick Negative (Negative); Occult Blood-Urine Negative /ul (Negative); Protein-Dipstick Negative (Negative); Specific Gravity, Urine 1.015 (1.002-1.030); Urine Bilirubin Dipstick Negative (Negative); Urine Clarity Clear (Clear); Urine Urobilinogen Normal (Normal); Urine pH 6.5 (5.0 - 8.0)
[2022-05-13 12:40] LABS: Differential Indicated MANUAL DIFF
[2022-05-13 12:50] LABS: White Blood Cells 0-5 SEEN /hpf (0-5)
[2022-05-13 12:51] LABS: Squamous Epithelial Cells - UA 0-5 SEEN /hpf (5-10)
[2022-05-13 13:13] LABS: ALB/GLOB Ratio 1.1 RATIO (0.9-2.4); AST(SGOT) 18 U/L (15-37); Alanine Aminotransfer ALT/SGPT 31 U/L (13-56); Albumin, Serum 3.6 g/dL (3.2-5.0); Alkaline Phosphatase 35 U/L (45-117); Anion Gap 9 (5-15); BUN 32 mg/dL (7-18); BUN/Creat Ratio 16.3 RATIO (10-20); Calcium,Total 10.1 mg/dL (8.5-10.1); Chloride 101 mmol/L (98-107); Cholesterol 179 mg/dL (200); Creatinine, Serum 1.96 mg/dL (0.55-1.02); EST Glomerular Filtration Rate 27 mL/min (>60); Est Glom Filt Rate - Afr Amer 32 mL/min (>60); Globulin 3.3 g/dL (2.2-4.2); Glucose 264 mg/dL (74-106); High Density Lipoprotein 43 mg/dL; Potassium 4.7 mmol/L (3.5-5.1); Protein, Total 6.9 g/dL (6.4-8.2); Sodium Level 136 mmol/L (136-145); Thyroid Stim Hormone (TSH) 0.48 uIU/mL (0.358-3.74); Triglycerides 233 mg/dL; Very Low Density Lipoprotein 47 mg/dL (5-40)
[2022-05-13 13:38] LABS: Lymphocyte 3 % (19-41); Metamyelocyte 3 % (0-1); Monocyte 1 % (0-10); Neutrophil-Segmented 93 % (47-70); Platelet Estimate ADEQUATE (ADEQ); Red Cell Morphology NORM C+C NORMAL (NORM C&C); Total Cells Counted 100 (MANUAL DIFF)
[2022-05-13 13:41] LABS: Absolute Lymphocyte Count 0.42 X10^3/uL (0.83-4.51); Lymphocyte # 0.42 X10^3/ul (0.83-4.51)
[2022-05-13 16:33] LABS: Microalbumin,Random Urine 30.7 mg/L (NO RANGE EST.)
[2022-05-16 09:55] LABS: Pathologist Review Reviewed
== END | disposition home or self-care (01) ==
LOC: MTLAB 09:55
PROVIDERS: PCP Internal Medicine; Referring Provider Internal Medicine; Visit Provider Internal Medicine
DX: M10.372 Gout due to renal impairment, left ankle and foot (principal); I48.91 Unspecified atrial fibrillation; E78.00 Pure hypercholesterolemia, unspecified; I12.9 Hypertensive chronic kidney disease with stage 1 through stage 4 chronic kidney disease, or unspecified chronic kidney disease; N18.9 Chronic kidney disease, unspecified
CPT/HCPCS: 36415; 73630; 80053; 80061; 81001; 82043; 82570; 84443; 85025

== ENCOUNTER 2022-05-19 10:30 | Outpatient (RCR) | payer MEDICARE, OTHER, SELFPAY ==
--- NOTE | 2022-05-14 08:21 | PR.ITP_ITS ---
Exercise - 30-Day Assessment - Visit Date of Eval: 05/14/22 Session Number:: 8 - Physician Prescribed Exercise Modalities: NuStep, SciFit Frequency (days/week): 3 Duration (Minutes):: 30-45 Aerobic Exercise [30-60 min 3-7x/week]:: Progressing Perri-14 Current METSs:: 3.0 Target HR:: 127 - THHR 97-127 Current RPD:: 3 Maximum Exercise HR:: 114 Resting Blood Pressure: 132/68 Maximum Exercise Blood Pressure: 136/64 Minimum SpO2 with exercise: 90 EKG Type: NSR with rare PVC and PAC Current Minutes of Exercise: 41:24 - Home Exercise Home Exercise:: No Nutrition/Wt Mgmt - 30-Day - Visit Date of Eval: 05/14/22 Session Number:: 8 - Weight Management Height: 5 ft 2 in - Weight:: 219 lb BMI: 40.0 Weight Goals Progress:: Not progressing Psychosocial - 30-Day - Visit Date of Eval: 05/14/22 Session Number:: 8 - Problems/Goals Psychosocial Goals: 7. Improved Q.O.L. - Psychosocial Test Tool Used:: PHQ-9 Questionnaire - Referral to Behavioral Health PS - Interventions: Yes Attend Stress Management Classes, No Referral to Behavioral Health if PHQ-9 score >9:, No Referral to [facility], No Referral to Physician if PHQ-9 if score is 5-9: - Plan Interventions/Plan:: Assess stressors,coping strategies & signs of derpression on admission, Instruct/assist pt to develop coping & personal stress Mgt strategies, Instruct patient to recognize signs & symptoms of depression, Instruct patient to recog Oxygen & Oxygen Titration 30D - Visit Date of Eval: 05/14/22 Session Number:: 8 - Reassessment Reassessment- 30 Days: Demonstrate knowledge of O2 Rx at rest & w/exercise, Using O2 as Rx'd, Has home O2 as Rx'd, Uses port O2 as Rx'd Breath Sounds:: Diminished, Insp. & Exp. Wheezing SpO2:: 95 - with 02 @ 3 liters rest Core Components - Initial Core Components - 30 DAYS - Visit Date of Eval: 05/14/22 Session Number:: 8 - Hypertension Resting Blood Pressure:: 132/68 [employer] Hypertension Guidelines: [employer] Hypertension Guidelines. Normal BP Less than 120/80. Elevated BP 120/80. Hypertension Stage 1: BP 130-139/80-89. Hypertesnion Stage 2: BP 140 or higher/90 or higher. Hypertension Crisis: BP higher than 180/120 Peak Exercise Blood Pressure:: 136/64 Change in medication: No 30 day Reassessments:: Progressing - Exacerbation Mgmt & Airway Clearance Reassessment: Demonstrates knowledge of O2 Rx at rest, Demonstrates knowledge of O2 Rx with exercise, Using O2 as prescribed, Has home O2 as prescribed, Uses port O2 as prescribed Bronchial Hygiene Plan: Yes Pt demonstrates correctly for effective cough, Yes Pt demo correct for CPT, Yes Pt demo correct for device - PFlex, SMI and spacer devices, Yes Pt demo correct for improved hydration, Yes Pt demo correct for hand hygiene, Yes Pt demo correct for verbalize when to call MD - Medication Medication list reviewed:: Yes Taking medications 100% of the time:: Met Medication reassessment: Yes Pt demonstrates correct technique timing for MDI, Yes Pt demonstrates correct technique timing for DPI, Yes Pt demonstrates correct technique timing for NEB, Yes Pt demonstrates correct technique timing for spacer - Diabetes Diabetes:: Yes Fasting blood glucose:: 0 - not available Insulin dependent injection/pump?: Yes Non-Insulin Dependent?: Yes Do you monitor your blood sugar at home?: Yes Referral to Diabetic Clinic:: No - Patient declined services 30-day Reassessments:: Progressing - Heart Failure Documenting weight rafi: No Core Components - 60 DAYS Core Components - 90 DAYS Core Components - Final Patient Health Questionnaire 30-Day Re-eval Assessment 1. Little interest or pleasure in doing things: Not at all 2. Feeling down, depressed, or hopeless: Not at all 3. Trouble falling or staying asleep, or sleeping too much: Not at all 4. Feeling tired or having little energy: Several days 5. Poor appetite or overeating: More than half the days 6. Feeling bad about yourself -- or that you are a failure or have let yourself or your family down: Not at all 7. Trouble concentrating on things, such as reading the newspaper or watching television: Not at all 8. Moving or speaking so slowly that other people could have noticed. Or the opposite - being so fidgety or restless that you have been moving around a lot more than usual: Not at all 9. Thoughts that you would be better off , or of hurting yourself in some way: Not at all How difficult have these problems made it for you to do your work, take care of things at home, or get along with other people?: Somewhat difficult Total Score: 3 Knowledge Questionaire (BCKQ) - Information Information: [place] COPD Knowledge Questionnaire (BCKQ) This questionnaire is designed to find out what you know about your lung problem. It should be completed without help form anyone else. This usually takes between 10 and 20 minutes. Your answers will help us to find out what information you need to help you to understand and manage your lung condition. [place] which you think is the correct answer. Self-Efficacy 30-Day Re-eval Assessment We would like to know how confident you are in doing certain activities. Please select your confidence level for:: Select your confidence level for the following using the scale 1-10 where 1 is not at all confident and 10 is totally confident. Your score is the average of all 6 responses. Fatigue: How confident are you that you can keep the fatigue caused by your disease from interfering with the things you want to do? Select Number: 2 Physical Discomfort or Pain: How confident are you that you can keep the physical discomfort or pain of your disease from interfering with the things you want to do? Select Number: 2 Emotional Distress: How confident are you that you can keep the emotional distress caused by your disease from interfering with the things you want to do? Select Number: 2 Other Symptoms or Health Problems: How confident are you that you can keep other symptoms or health problems from interfering with the things you want to do? Select Number: 2 Different Tasks and Activities: How confident are you that you can do the different tasks and activities needed to manage your health condition so as to reduce your need to see a doctor? Select Number: 2 Medication: How confident are you that you can do things other than just taking medication to reduce how much your illness affects your everyday life? Select Number: 2 Total Score:: 2 Nutrition Survey
[2022-05-14 08:28] VITALS: BP 132/68; BP 136/64; O2SAT 95; BMI 40.0
== END 2022-05-29 23:59 ==
LOC: PR 10:30
PROVIDERS: PCP Internal Medicine; Referring Provider Internal Medicine Pulmonary Disease; Visit Provider Internal Medicine Pulmonary Disease
DX: I27.20 Pulmonary hypertension, unspecified (principal); J45.40 Moderate persistent asthma, uncomplicated
CPT/HCPCS: 97150; G0239

== ENCOUNTER → 2022-06-05 | Outpatient (CLI) | payer MEDICARE, OTHER, SELFPAY ==
[2022-05-14 08:28] VITALS: BMI 40.0
[2022-06-05 15:10] LABS: Hematocrit 36.1 % (37-47); Hemoglobin 11.2 g/dL (12.0-15.0); Mean Corpuscular Hgb 30.6 pg (27.0-32.0); Mean Corpuscular Volume 98.6 fL (81-99); Mean Platelet Vol. 10.1 fl (6.2-12.0); Platelet Count 400 K/mm3 (150-450); RBC Distribution Width CV 14.7 % (11.6-14.6); RBC Distribution Width SD 53.4 fl (35.1-43.9); Red Blood Count 3.66 M/mm3 (4.2-5.4)
[2022-06-05 15:30] LABS: PTHIN 65.1 pg/mL (18.4-80.1)
[2022-06-05 15:33] LABS: Vitamin D,25 Hydroxy 68.1 ng/mL
[2022-06-05 15:35] LABS: Microalbumin,Random Urine 12.2 mg/L (NO RANGE EST.); Microalbumin:Creatinine Ratio 18.3 mg/g CRE (<30 mg/g CRE)
[2022-06-05 15:37] LABS: Albumin, Serum 3.8 g/dL (3.2-5.0); BUN 55 mg/dL (7-18); BUN/Creat Ratio 25.5 RATIO (10-20); Calcium,Total 10.2 mg/dL (8.5-10.1); Chloride 104 mmol/L (98-107); Creatinine, Serum 2.16 mg/dL (0.55-1.02); EST Glomerular Filtration Rate 24 mL/min (>60); Est Glom Filt Rate - Afr Amer 29 mL/min (>60); Glucose 188 mg/dL (74-106); Magnesium 1.7 mg/dL (1.6-2.6); Phosphorus 2.8 mg/dL (2.5-4.9); Potassium 5.3 mmol/L (3.5-5.1); Sodium Level 136 mmol/L (136-145)
== END | disposition home or self-care (01) ==
LOC: MTLAB 13:27
PROVIDERS: PCP Internal Medicine; Referring Provider Internal Medicine Nephrology; Visit Provider Internal Medicine Nephrology
DX: E55.9 Vitamin D deficiency, unspecified (principal); N18.4 Chronic kidney disease, stage 4 (severe); D63.1 Anemia in chronic kidney disease
CPT/HCPCS: 36415; 80069; 82043; 82306; 82570; 83735; 83970; 85027

== ENCOUNTER → 2022-06-17 | Outpatient (CLI) | payer MEDICARE, OTHER, SELFPAY ==
[2022-05-14 08:28] VITALS: BMI 40.0
[2022-06-13 06:54] VITALS: BMI 39.9
--- NOTE | 2022-06-17 13:58 | US_ITS ---
STUDY: RENAL ULTRASOUND - COMPLETE REASON FOR EXAM: Female, 71 years old. INSUFF. -- Back pain TECHNIQUE: Ultrasound evaluation of the kidneys was performed with real-time and static burdick-scale imaging. COMPARISON: None. FINDINGS: RIGHT KIDNEY: Normal location of the right kidney, which is normal in size. The right kidney measures 13.2 cm x 6.1 cm x 6 cm. There is a normal cortex of the right kidney. The renal cortex measures 1.6 cm. There is no right renal mass or cyst. I suspect a 3 mm nonobstructive calculus. There is no right hydronephrosis. DISTAL RIGHT URETER: There is non-visualization of the distal right ureter. There is no demonstrated right ureterovesical junction calculus. There is a visualized right ureteral jet. LEFT KIDNEY: with mild renal atrophy. The left kidney measures 9 cm x 3.3 cm x 3.4 cm. There is diffuse thinning of the renal cortex. The renal cortex measures 0.7 cm. There is a 1.6 cm x 1.6 cm x 1.3 cm renal cyst. 4 mm nonobstructive intrarenal calculus. There is no left hydronephrosis. DISTAL LEFT URETER: There is non-visualization of the distal left ureter. There is no demonstrated left ureterovesical junction calculus. There is a visualized left ureteral jet. BLADDER: The distended urinary bladder has a volume of 144 ml. There is a normal wall thickness of the distended urinary bladder. There is no demonstrated mass within the urinary bladder. There are no demonstrated bladder calculi. US/Kidney and Bladder IMPRESSION: Mild atrophy of the left kidney. Left renal cyst. Nonobstructive small bilateral renal calculi. Electronically Signed: Anam Larios MD at 15:26 EDT ,
== END | disposition home or self-care (01) ==
PROVIDERS: PCP Internal Medicine; Referring Provider Urology; Visit Provider Urology
DX: N28.1 Cyst of kidney, acquired (principal); M54.9 Dorsalgia, unspecified; R10.30 Lower abdominal pain, unspecified
CPT/HCPCS: 76770

== ENCOUNTER 2022-06-20 10:54 | Emergency (ER) | payer MEDICARE, OTHER, SELFPAY ==
[2022-06-13 06:54] VITALS: BMI 39.9
[2022-06-20 10:54] VITALS: PULSE 87; RESP 16; TEMP 36.4; O2SAT 93; BMI 40.0
--- NOTE | 2022-06-20 11:10 | EKG12_ITS ---
Test Reason : CHEST PAIN Blood Pressure : / mmHG Vent. Rate : 088 BPM Atrial Rate : 088 BPM P-R Int : 166 ms QRS Dur : 152 ms QT Int : 394 ms P-R-T Axes : 045 115 020 degrees QTc Int : 476 ms Normal sinus rhythm with sinus arrhythmia Right bundle branch block Septal infarct , age undetermined Abnormal ECG Confirmed by IRA FELIX, KEREN ([id number]), makeup editor KATHI COLBERT ([id number]) on 06/24/2022 9:14:35 AM Referred By: HITESH Confirmed By:KEREN ROTH MD
--- NOTE | 2022-06-20 11:12 | EDS_ITS ---
HPI <NAKIA Stacy - Last Filed: 06/20/22 14:29> History of Present Illness Chief Complaint: Chest Pain Narrative Narrative: 71-year-old female with history of COPD, renal disease, diabetes, obesity, hypertension, paroxysmal A. fib on 3 L of nasal cannula presents to the emergency department with left-sided chest pain, increased shortness of breath while having cardiac, pulmonary rehab today. Patient states she woke up today and felt slightly off, patient started having rehab, and while doing her exercises she developed left-sided chest pain. Patient denies any fevers or chills. Patient recently had COVID, however states she has been getting better. Patient had pain while she was moving at a 7, patient states at rest she is at a 3. PFS <NAKIA Stacy - Last Filed: 06/20/22 14:29> [facility] Medical History Allergic rhinitis Asthma Chronic kidney disease Chronic obstructive lung disease Chronic renal failure, stage 3 (moderate) Compression fracture of L1 vertebra Constipation Debility Diabetes Diabetes mellitus type 2 in obese Dysphagia Essential (primary) hypertension GERD (gastroesophageal reflux disease) Gout Hyperlipidemia Hyperuricemia Intractable low back pain L1 vertebral fracture Leukocytosis Lung abscess Morbid obesity Muscle spasm Noncompliance with CPAP treatment Obesity Obesity (BMI 30-39.9) Obstructive sleep apnea On home O2 Osteopenia Osteoporosis Osteoporosis Overactive bladder Paroxysmal atrial fibrillation Pneumonia Right bundle branch block (RBBB) Sarcoidosis Secondary pulmonary arterial hypertension Type 2 diabetes mellitus Venous insufficiency of both lower extremities Home Medications fluticasone propionate 50 mcg/actuation nasal spray,suspension 2 spray NASAL DAILY PRN PRN Congestion 06/21/17 [History Last Taken 11/19/20] febuxostat 40 mg tablet 40 mg PO DAILY gout 12/30/18 [History Last Taken 11/19/20] fluticasone 500 mcg-salmeterol 50 mcg/dose blistr powdr for inhalation (Advair Diskus) 1 inh inhalation BID SOB 07/17/20 [History Last Taken 11/19/20] montelukast 10 mg tablet 10 mg PO QHS ALLERGIES 11/19/20 [History Last Taken 11/18/20] tramadol 50 mg tablet 50 mg PO Q8H PRN Pain Score 4-5 #9 tabs 12/05/20 [Rx Last Taken Unknown] acetaminophen 650 mg tablet,extended release (Tylenol Arthritis Pain) 650 mg PO Q12H 02/08/21 [History Last Taken Unknown] albuterol sulfate 90 mcg/actuation aerosol inhaler 2 puff inhalation Q4H PRN sob 02/08/21 [History Last Taken Unknown] ammonium lactate 12 % topical cream 1 applic topical DAILY PRN Dry Skin 02/08/21 [History Last Taken Unknown] aspirin 81 mg tablet,delayed release 81 mg PO DAILY #1 TAB 02/08/21 [Rx Last Taken Unknown] cyanocobalamin (vitamin B-12) 1,000 mcg tablet 1,000 mcg PO DAILY 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 02/08/21 [History Last Taken Unknown] fluconazole 150 mg tablet 150 mg PO Q3D PRN yeast 02/08/21 [History Last Taken Unknown] pantoprazole 40 mg tablet,delayed release 40 mg PO BID GERD 02/08/21 [History Last Taken Unknown] triamterene 37.5 mg-hydrochlorothiazide 25 mg tablet 1 tab PO DAILY 02/08/21 [History Last Taken Unknown] losartan 50 mg tablet 100 mg PO DAILY 07/02/21 [History Last Taken Unknown] cholecalciferol (vitamin D3) 25 mcg (1,000 unit) tablet 4,000 unit PO DAILY supplement 07/22/21 [History Last Taken Unknown] insulin aspart U-100 100 unit/mL (3 mL) subcutaneous pen 8 unit subcut BREAKFAST 07/22/21 [History Last Taken Unknown] insulin aspart U-100 100 unit/mL (3 mL) subcutaneous pen (Novolog Flexpen U-100 Insulin aspart) 8 unit subcut LUNCH 08/08/21 [History Last Taken Unknown] insulin aspart U-100 100 unit/mL (3 mL) subcutaneous pen (Novolog Flexpen U-100 Insulin aspart) 14 unit subcut DINNER 08/08/21 [History Last Taken Unknown] fenofibric acid (choline) 135 mg capsule,delayed release (Trilipix) 135 mg PO DAILY 01/14/22 [History Last Taken Unknown] ipratropium 0.5 mg-albuterol 3 mg (2.5 mg base)/3 mL nebulization soln 3 ml inhalation Q4H PRN wheezing #90 mL 01/14/22 [Rx Last Taken Unknown] loratadine 10 mg tablet (Claritin) 10 mg PO DAILY 01/14/22 [History Last Taken Unknown] mirabegron 50 mg tablet,extended release 24 hr (Myrbetriq) 50 mg PO DAILY 01/14/22 [History Last Taken Unknown] polyethylene glycol 3350 17 gram oral powder packet (Miralax) 17 g PO BID 01/14/22 [History Last Taken Unknown] sitagliptin 50 mg tablet (Januvia) 50 mg PO DAILY 01/14/22 [History Last Taken Unknown] tiotropium bromide 1.25 mcg/actuation mist for inhalation (Spiriva Respimat) 2 puff inhalation DAILY 01/14/22 [History Last Taken Unknown] furosemide 20 mg tablet (Lasix) 20 mg PO .COMPLEX 03/11/22 [History Last Taken Unknown] ibandronate 150 mg tablet 150 mg PO QMONTH #3 tabs 05/05/22 [Rx Last Taken Unk nown] insulin aspart U-100 100 unit/mL (3 mL) subcutaneous pen (Novolog Flexpen U-100 Insulin aspart) See Rx Instructions subcut TID #30 mL 05/05/22 [Rx Last Taken Unknown] insulin glargine 100 unit/mL (3 mL) subcutaneous pen 36 unit (0.36 mL) subcut QPM DM #36 mL 05/05/22 [Rx Last Taken Unknown] pen needle, diabetic 32 gauge x 5/32 (BD Ultra-Fine Sonam Pen Needle) #400 ea 05/05/22 [Rx Last Taken Unknown] diltiazem HCl 180 mg capsule,24 hr,extended release 180 mg PO DAILY #90 caps 05/27/22 [Rx Last Taken Unknown] Allergy/AdvReac Type Severity Reaction Status Date / Time clindamycin Allergy Rash Verified 06/20/22 11:19 insulin detemir Allergy Rash Verified 06/20/22 11:19 [From Levemir U-100 Insulin] ciprofloxacin AdvReac Mild Upset Verified 06/20/22 11:19 Stomach amoxicillin trihydrate AdvReac Nausea Verified 06/20/22 11:19 [From Augmentin] morphine AdvReac Nausea Verified 06/20/22 11:19 potassium clavulanate AdvReac Nausea Verified 06/20/22 11:19 [From Augmentin] Family History Father Hypertension Colon cancer Cancer lung Mother Hypertension Heart disease Diabetes Surgical History History of cholecystectomy History of knee replacement procedure of left knee History of laminectomy History of right and left heart catheterization (05/04/20) Social History Smoking Status: Former smoker how long ago did patient quit smokin years ago alcohol intake: never substance use type: does not use caffeine: Yes Type: coffee Number of servings: 2 ROS <NAKIA Stacy - Last Filed: 06/20/22 14:29> ROS ED ROS Narrative Constitutional: Negative for fever, chills, weight loss, weakness Eyes: Negative for vision loss, vision change, double vision ENT: Negative for any sore throat, ear pain, congestion Cardiovascular: Negative for any tightness, palpitations. Positive for chest pain Respiratory: Negative for any cough, sputum production, hemoptysis. Positive for dyspnea, dyspnea on exertion, orthopnea Gastrointestinal: Negative for any abdominal pain, nausea, vomiting, diarrhea, constipation, blood in stool, blood in vomit : Negative for any urinary frequency, dysuria, retention, blood in urine Muscle skeletal: Negative for any muscle joint pain, stiffness, myalgias, arthralgias, neck pain, back pain Neurological: Negative for any headache, syncope, numbness or tingling, dizzin ess Skin: Negative for any rashes, lumps, itching, abrasions, lacerations Psychiatric: Negative for any depression, anxiety, stress, suicidal ideation, homicidal ideation Hematologic: Negative for any easy bruising, excessive bruising, easy bleeding Allergies: Negative for any eczema, hives, rash EXAM <NAKIA Stacy - Last Filed: 06/20/22 14:29> Physical Exam Narrative Exam Narrative: Vital signs reviewed. Patient is tachypneic, patient on her 3 L has stable vital signs. HEET: Head normocephalic atraumatic, TMs clear bilaterally. Posterior pharynx is clear, moist mucous membranes. Nares clear bilaterally. Neck: Supple with no lymphadenopathy or tenderness. No signs of meningismus, negative jolt sign. Cardiac: Regular rate and rhythm no murmurs gallops or rubs, equal peripheral pulses bilaterally. Respiratory: Lungs clear to auscultation bilaterally. No chest tenderness. Abdomen: Soft, nontender, nondistended. No abdominal bruit or pulsatile masses. No hepatosplenomegaly Extremities: No peripheral edema, no signs of gross trauma or deformity. Active full range of motion of all extremities. Neuro: Cranial nerves II through XII intact, no focal neurological deficits. Skin: Clean dry and intact with no rash, purpura, petechiae, vesicles or pustules. Backs/flank: No CVA tenderness, no midline spinal tenderness, no deformity. Psych: Normal mood and affect. No SI, HI or acute psychosis. Const Vital Signs: 06/20/22 10:54 06/20/22 11:18 06/20/22 11:17 Temperature 97.5 F L Temperature Source Temporal Pulse Rate 87 87 90 Respiratory Rate 16 22 H 18 Respiratory Pattern Normal Blood Pressure 174/69 H Blood Pressure Mean 104 Pulse Ox 93 97 Oxygen Delivery Method Nasal Cannula Nasal Cannula Oxygen Flow Rate (L/min) 3 3 06/20/22 12:25 Temperature Temperature Source Pulse Rate 79 Respiratory Rate 18 Respiratory Pattern Blood Pressure 159/56 H Blood Pressure Mean 90 Pulse Ox 96 Oxygen Delivery Method Room Air Oxygen Flow Rate (L/min) Positive well nourished, well developed and obese General Appearance ED: well developed Nutritional Appearance: obese <Dr. Savannah Freeman DO - Last Filed: 06/23/22 16:11> Physical Exam Const Vital Signs: 06/20/22 10:54 06/20/22 11:18 06/20/22 11:17 Temperature 97.5 F L Temperature Source Temporal Pulse Rate 87 87 90 Respiratory Rate 16 22 H 18 Respiratory Pattern Normal Blood Pressure 174/69 H Blood Pressure Mean 104 Pulse Ox 93 97 Oxygen Delivery Method Nasal Cannula Nasal Cannula Oxygen Flow Rate (L/min) 3 3 06/20/22 12:25 Temperature Temperature Source Pulse Rate 79 Respiratory Rate 18 Respiratory Pattern Blood Pressure 159/56 H Blood Pressure Mean 90 Pulse Ox 96 Oxygen Delivery Method Room Air Oxygen Flow Rate (L/min) MDM <NAKIA Stacy - Last Filed: 06/20/22 14:29> [facility] Lab Data Labs: Laboratory Results - last 24 hr 06/20/22 06/20/22 06/20/22 11:20 11:20 11:20 WBC 9.2 RBC 3.60 L Hgb 11.3 L Hct 35.8 L MCV 99.4 H MCH 31.4 MCHC 31.6 L RDW Std Deviation 55.5 H RDW Coeff of Jazzmine 15.2 H Plt Count 218 MPV 9.8 Immature Gran % (Auto) 4.500 H Neut % (Auto) 69.6 Lymph % (Auto) 11.1 L [place] % (Auto) 11.8 H Eos % (Auto) 2.3 Baso % (Auto) 0.7 Absolute Neuts (auto) 6.4 Absolute Lymphs (auto) 1.02 Nucleated RBC % 0 D-Dimer Quant (PE/DVT) 0.61 H* Sodium 139 Potassium 4.8 Chloride 108 H Carbon Dioxide 25.0 Anion Gap 6 BUN 41 H Creatinine 2.09 H Estim Creat Clear Calc 19.53 Est GFR (MDRD) Af Amer 30 L Est GFR (MDRD) Non-Af 25 L BUN/Creatinine Ratio 19.6 Glucose 137 H Calcium 10.5 H Troponin I High Sens 13 B-Natriuretic Peptide 06/20/22 06/20/22 11:20 13:40 WBC RBC Hgb Hct MCV MCH MCHC RDW Std Deviation RDW Coeff of Jazzmine Plt Count MPV Immature Gran % (Auto) Neut % (Auto) Lymph % (Auto) [place] % (Auto) Eos % (Auto) Baso % (Auto) Absolute Neuts (auto) Absolute Lymphs (auto) Nucleated RBC % D-Dimer Quant (PE/DVT) Sodium Potassium Chloride Carbon Dioxide Anion Gap BUN Creatinine Estim Creat Clear Calc Est GFR (MDRD) Af Amer Est GFR (MDRD) Non-Af BUN/Creatinine Ratio Glucose Calcium Troponin I High Sens 12 B-Natriuretic Peptide 54.8 Radiography Diagnostic Testing: Clinical Impression(s) from Imaging Studies Chest X-Ray 06/20/22 11:25 IMPRESSION: Findings suggestive of bibasilar scarring worse on the left side. Electronically Signed: Anam Larios MD at 13:05 EDT , Venous Doppler Study 06/20/22 12:11 Interpretation Summary No evidence for acute deep venous thrombosis bilateral lower extremities with patent and compressible bilateral great saphenous veins. Ordering Physician: Yosi Alexander Performed By: Jesus Page RVT Normal sinus rhythm with sinus arrhythmia: Attestation: I personally reviewed and interpreted this EKG as follows: Comments: Normal sinus rhythm, with sinus arrhythmia, right bundle branch block which is chronic, rate of 88 bpm, OH 166 ms, QRS duration 152 ms, no acute ST elevation, no acute infarct noted. Treatment and Re-Evaluation Narrative: Patient appears well, patient appears nontoxic, vital signs are stable. Patient presents to the emergency department with complaints of worsening shortness of breath, some chest pressure. Patient was at cardiac rehab, and was told to come to the emergency department. Patient did receive a full cardiac work-up. Patient did receive a chest x-ray, this showed some suggestive of bibasilar scarring worse on the left side. Patient did have relief of symptoms with IV Solu-Medrol, albuterol, duo nebs. Patient's laboratory values show a normal CBC, patient's D-dimer was 0.61 however for age-adjusted, it is negative. Patient's chemistries show ongoing renal insufficiency. Patient's troponin initially was 13, repeat was 12, these were both negative. Patient did receive venous duplex of bilateral lower extremities which were negative. EKG was unremarkable. At this time, there is no evidence to suspect ACS, OR, pulmonary embolus, pneumonia. Patient did improve with albuterol treatments, I do believe the patient had a slight COPD exacerbation. On reassessment, the patient feels well, no more chest pain. Patient will be discharged and will follow-up outpatient. Instructed return for any worsening symptoms. <Dr. Savannah Freeman, - Last Filed: 06/23/22 16:11> MDM MDM Narrative Medical decision making narrative: I have personally performed a face to face assessment of the patient and have reviewed the RIOS Note. I performed a substantive portion of the visit including all aspects of the following. My crow findings include: History is patient is a 71-year-old female with complex medical history pre senting with chest discomfort while at rehab today. Patient states she was exerting herself more than normal.No other acute complaints at this time. Patient states has been compliant with her medications. Exam is Normocephalic/atraumatic. Moist mucosal membranes. Neck is supple. No JVD. Heart regular rate and rhythm. Lungs clear to auscultation bilaterally. Abdomen soft and nontender.No significant peripheral edema. No palpable cords. No focal neurologic deficits. No rash or skin changes. Normal tone throughout. Medical Decison Making Patient is evaluated for chest pressure after exertion at cardiac rehab today. EKG does not show any acute ischemic process. Chest x-ray interpreted by myself as well as radiology does not show any acute process. Venous duplex is negative. Patient's D-dimer is normal for age I do not suspect PEs as cause of her discomfort today. Patient is a chronic anemia which is stable with a hemoglobin 11.3 today. Normal white blood cell counts and platelets are normal. BMP shows a stable creatinine of 2.09. No other acute electrode abnormalities noted. High sensitive troponin is stable at 13 and 12. BNP is normal at 54.8. Given that her symptoms resolved with rest in the emergency room and her unremarkable work-up I feel the patient can be discharged home. Likely she was just overdoing it at rehab today. Patient is given return precautions. She verbalizes agreement understand this plan. Follow-up with cleaning matron. Other additions or changes: [None] Lab Data Labs: Laboratory Results - last 24 hr 06/20/22 06/20/22 06/20/22 11:20 11:20 11:20 WBC 9.2 RBC 3.60 L Hgb 11.3 L Hct 35.8 L MCV 99.4 H MCH 31.4 MCHC 31.6 L RDW Std Deviation 55.5 H RDW Coeff of Jazzmine 15.2 H Plt Count 218 MPV 9.8 Immature Gran % (Auto) 4.500 H Neut % (Auto) 69.6 Lymph % (Auto) 11.1 L [place] % (Auto) 11.8 H Eos % (Auto) 2.3 Baso % (Auto) 0.7 Absolute Neuts (auto) 6.4 Absolute Lymphs (auto) 1.02 Nucleated RBC % 0 D-Dimer Quant (PE/DVT) 0.61 H* Sodium 139 Potassium 4.8 Chloride 108 H Carbon Dioxide 25.0 Anion Gap 6 BUN 41 H Creatinine 2.09 H Estim Creat Clear Calc 19.53 Est GFR (MDRD) Af Amer 30 L Est GFR (MDRD) Non-Af 25 L BUN/Creatinine Ratio 19.6 Glucose 137 H Calcium 10.5 H Troponin I High Sens 13 B-Natriuretic Peptide 06/20/22 06/20/22 11:20 13:40 WBC RBC Hgb Hct MCV MCH MCHC RDW Std Deviation RDW Coeff of Jazzmine Plt Count MPV Immature Gran % (Auto) Neut % (Auto) Lymph % (Auto) [place] % (Auto) Eos % (Auto) Baso % (Auto) Absolute Neuts (auto) Absolute Lymphs (auto) Nucleated RBC % D-Dimer Quant (PE/DVT) Sodium Potassium Chloride Carbon Dioxide Anion Gap BUN Creatinine Estim Creat Clear Calc Est GFR (MDRD) Af Amer Est GFR (MDRD) Non-Af BUN/Creatinine Ratio Glucose Calcium Troponin I High Sens 12 B-Natriuretic Peptide 54.8 Radiography Diagnostic Testing: Clinical Impression(s) from Imaging Studies Chest X-Ray 06/20/22 11:25 IMPRESSION: Findings suggestive of bibasilar scarring worse on the left side. Electronically Signed: Anam Larios MD at 13:05 EDT , Venous Doppler Study 06/20/22 12:11 Interpretation Summary No evidence for acute deep venous thrombosis bilateral lower extremities with patent and compressible bilateral great saphenous veins. Ordering Physician: Yosi Alexander Performed By: Jesus Page RVT Discharge Plan Triage Chief Complaint: Chest Pain ED Midlevel Provider: Yosi Alexander ED Provider: Savannah Freeman Dx/Rx/DC Orders Clinical Impression: Chronic obstructive lung disease, Chest pressure Instructions: Asthma and COPD, ED Chest Pain, Uncertain Cause Prescriptions: No Action fluticasone propion-salmeterol [Advair Diskus] 500-50 mcg/dose blister with device 1 inh INHALATION BID fluconazole 150 mg tablet 150 mg PO Q3D PRN (Reason: yeast) albuterol sulfate 90 mcg/actuation HFA aerosol inhaler 2 puff INHALATION Q4H PRN (Reason: sob) triamterene-hydrochlorothiazid 37.5-25 mg tablet 1 tab PO DAILY ammonium lactate 12 % cream 1 applic TOPICAL DAILY PRN (Reason: Dry Skin) acetaminophen [Tylenol Arthritis Pain] 650 mg tablet extended release 650 mg PO Q12H aspirin 81 mg tablet,delayed release (DR/EC) 81 mg PO DAILY Qty: 1 0RF insulin aspart U-100 100 unit/mL (3 mL) insulin pen 8 unit subcut BREAKFAST Label Comments: Inject 10 units once daily before largest meal. furosemide [Lasix] 20 mg tablet 20 mg PO .COMPLEX Rx Instructions: 20 mg PO M/W/; insulin glargine 100 unit/mL (3 mL) insulin pen 36 unit SC QPM Qty: 36 3RF insulin aspart U-100 [Novolog Flexpen U-100 Insulin] 100 unit/mL (3 mL) insulin pen See Rx Instructions subcut TID Qty: 30 3RF Rx Instructions: 8-8-14 with meals subcut three times a day; (DME) pen needle, diabetic [BD Ultra-Fine Sonam Pen Needle] 32 gauge x 5/32 needle See Rx Instructions .ROUTE .MEDSUPPLY Qty: 400 3RF Rx Instructions: 4times daily ibandronate 150 mg tablet 150 mg PO QMONTH Qty: 3 3RF fluticasone propionate 1 SPRAY spray,suspension 2 spray NASAL DAILY PRN PRN (Reason: Congestion) febuxostat 40 MG tablet 40 mg PO DAILY cholecalciferol (vitamin D3) 25 mcg (1,000 unit) tablet 4,000 unit PO DAILY cyanocobalamin (vitamin B-12) 1,000 mcg tablet 1,000 mcg PO DAILY montelukast 10 MG tablet 10 mg PO QHS pantoprazole 40 mg tablet,delayed release (DR/EC) 40 mg PO BID tramadol 50 MG tablet 50 mg PO Q8H PRN (Reason: Pain Score 4-5) Qty: 9 0RF insulin aspart U-100 [Novolog Flexpen U-100 Insulin] 100 unit/mL (3 mL) insulin pen 8 unit SUBCUT LUNCH Label Comments: Inject 10 units once daily before largest meal. insulin aspart U-100 [Novolog Flexpen U-100 Insulin] 100 unit/mL (3 mL) insulin pen 14 unit SUBCUT DINNER Label Comments: Inject 10 units once daily before largest meal. loratadine [Claritin] 10 mg Tablet 10 mg PO DAILY Januvia 50 mg Tablet 50 mg PO DAILY fenofibric acid (choline) [Trilipix] 135 mg Capsule,Delayed Release(Dr/Ec) 135 mg PO DAILY Myrbetriq 50 mg Tablet Extended Release 24 Hr 50 mg PO DAILY polyethylene glycol 3350 [Miralax] 17 gram Powder In Packet 17 g PO BID Spiriva Respimat 1.25 mcg/actuation Mist 2 puff INHALATION DAILY ipratropium-albuterol 0.5 mg-3 mg(2.5 mg base)/3 mL solution for nebulization 3 ml inhalation Q4H PRN (Reason: wheezing) Qty: 90 0RF losartan 50 mg tablet 100 mg PO DAILY diltiazem HCl 180 mg capsule,extended release 24 hr 180 mg PO DAILY Qty: 90 3RF Primary Care Provider: Veronica Oquendo Referrals: Veronica Oquendo DO [Primary Care Provider] - Activity Restrictions/Additional Instructions: Please follow-up with your PCP, pulmonology. Return for any worsening symptoms. You had negative chest pain work-up today. Print Language: Frisian Disposition Disposition: Home, Self Care Discharge Date/Time: 06/20/22 14:39
[2022-06-20 11:17] VITALS: PULSE 90; RESP 18
[2022-06-20] MEDS: Albuterol 2.5 MG/3 ML VIAL.NEB. INHALATION (11:17)
[2022-06-20] MEDS: Ipratropium/Albuterol Sulfate 3 ML AMPUL.NEB INHALATION (11:17)
[2022-06-20] MEDS: MethylPREDNISolone 125 MG/2 ML Vial IV (11:17)
[2022-06-20 11:18] VITALS: BP 174/69; PULSE 87; RESP 22; O2SAT 97
--- NOTE | 2022-06-20 11:25 | RAD_ITS ---
STUDY: X-RAY CHEST REASON FOR EXAM: Female, 71 years old. Shortness of breath TECHNIQUE: Single AP portable view of the chest. COMPARISON: Comparison is made with prior study 02/03/2022. FINDINGS: EKG electrodes are seen. Scattered calcified granulomas. Stable mild increased markings at the lung bases more prominent on the right side suggestive of scarring. Blunting of the left costophrenic angle. There is moderate cardiac enlargement. Calcification of the mitral valve annulus. Calcified subcarinal and bilateral hilar lymph nodes. Normal visualized pulmonary arteries. Normal visualized aortic arch and descending thoracic aorta. There are diffuse degenerative changes of the visualized thoracic spine. Dextroscoliosis. Normal visualized ribs, clavicles, and shoulders. There is no demonstrated abnormality of the visualized soft tissue structures of the upper abdomen. RAD/Chest 1 View (Portable) IMPRESSION: Findings suggestive of bibasilar scarring worse on the left side. Electronically Signed: Anam Larios MD at 13:05 EDT ,
[2022-06-20 11:36] LABS: Absolute Lymphocyte Count 1.02 X10^3/uL (0.83-4.51); Absolute Neutrophil Count 6.4 X10^3/uL (2.0-7.7); Basophil# 0.06 X10^3/uL; Basophil% 0.7 % (0-1); Eosinophil# 0.21 X10^3/uL; Eosinophils% 2.3 % (0-5); Hematocrit 35.8 % (37-47); Hemoglobin 11.3 g/dL (12.0-15.0); Lymphocyte # 1.02 X10^3/ul (0.83-4.51); Lymphocyte % 11.1 % (19-41); Mean Corp Hgb Conc 31.6 g/dL (32-36); Mean Corpuscular Hgb 31.4 pg (27.0-32.0); Mean Corpuscular Volume 99.4 fL (81-99); Mean Platelet Vol. 9.8 fl (6.2-12.0); Monocyte# 1.09 X10^3/uL; Monocyte% 11.8 % (0-10); NRBC Flagged by Analyzer 0 % (0-5); Neutrophil # 6.41 X10^3/uL (2.7-7.7); Neutrophil % 69.6 % (47-70); Platelet Count 218 K/mm3 (150-450); RBC Distribution Width CV 15.2 % (11.6-14.6); RBC Distribution Width SD 55.5 fl (35.1-43.9); White Blood Count 9.2 K/mm3 (4.4-11.0)
[2022-06-20 11:48] LABS: D-Dimer Quantitative (DVT/PE) 0.61 FEU/ug/m (0.27-0.49)
[2022-06-20 11:54] LABS: Anion Gap 6 (5-15); BUN 41 mg/dL (7-18); BUN/Creat Ratio 19.6 RATIO (10-20); Calcium,Total 10.5 mg/dL (8.5-10.1); Chloride 108 mmol/L (98-107); Creatinine, Serum 2.09 mg/dL (0.55-1.02); EST Glomerular Filtration Rate 25 mL/min (>60); Est Glom Filt Rate - Afr Amer 30 mL/min (>60); Estimated Creatinine Clearance 19.53 ml/min; Glucose 137 mg/dL (74-106); Potassium 4.8 mmol/L (3.5-5.1); Sodium Level 139 mmol/L (136-145); Troponin-I HS 13 pg/mL (3.0-54.0)
--- NOTE | 2022-06-20 12:11 | VDLE_ITS ---
Reason For Study: swelling RIGHT LEFT GSV is normal. GSV is normal. CFV is compressible, spontaneous, phasic, CFV is compressible, spontaneous, phasic, competent and demonstrates normal competent, and demonstrates normal augmentation. augmentation. FV is compressible, spontaneous, phasic, FV is compressible, spontaneous, phasic, competent and demonstrates normal competent and demonstrates normal augmentation. augmentation. POP V is compressible, spontaneous, phasic, POP V is compressible, spontaneous, phasic, competent and demonstrates normal competent and demonstrates normal augmentation. augmentation. T/P Trunk is compressible. T/P Trunk is compressible. PTV is compressible. PTV is compressible. RT PerV is compressible. LT PerV is compressible. Procedure This is a venous duplex using B-mode, color flow and spectral Doppler. Exam performed portable in ED. The exam was diagnostic. A preliminary report was called and/or faxed to Dr. Freeman. VL/Venous Duplex US - Brandon Extrem Interpretation Summary No evidence for acute deep venous thrombosis bilateral lower extremities with p atent and compressible bilateral great saphenous veins. Ordering Physician: Yosi Alexander Performed By: Jesus Page RVT
[2022-06-20 12:25] VITALS: BP 159/56; PULSE 79; RESP 18; O2SAT 96
[2022-06-20 13:06] LABS: BNP,B-Type NATRIURETIC PEPTIDE 54.8 pg/mL (0-100)
[2022-06-20 13:59] LABS: Troponin-I HS 12 pg/mL (3.0-54.0)
== END 2022-06-20 14:39 | disposition home or self-care (01) ==
PROVIDERS: Nurse Practitioner; Emergency Provider Emergency Medicine; PCP Internal Medicine; Visit Provider Emergency Medicine
DX: J45.40 Moderate persistent asthma, uncomplicated (principal); J44.9 Chronic obstructive pulmonary disease, unspecified; I27.20 Pulmonary hypertension, unspecified; E11.22 Type 2 diabetes mellitus with diabetic chronic kidney disease; I48.0 Paroxysmal atrial fibrillation; E66.01 Morbid (severe) obesity due to excess calories; Z79.4 Long term (current) use of insulin; N18.30 Chronic kidney disease, stage 3 unspecified; R07.89 Other chest pain; I12.9 Hypertensive chronic kidney disease with stage 1 through stage 4 chronic kidney disease, or unspecified chronic kidney disease; R06.02 Shortness of breath; E78.5 Hyperlipidemia, unspecified; D64.9 Anemia, unspecified; K21.9 Gastro-esophageal reflux disease without esophagitis; G47.33 Obstructive sleep apnea (adult) (pediatric); Z99.81 Dependence on supplemental oxygen; Z79.82 Long term (current) use of aspirin; Z79.899 Other long term (current) drug therapy; Z86.16 Personal history of COVID-19; Z87.891 Personal history of nicotine dependence
CPT/HCPCS: 71045; 80048; 83880; 84484; 85025; 85379; 93005; 93970; 94640; 96374; 97150; 99284; A4216; G0239

== ENCOUNTER 2022-06-27 10:30 | Outpatient (RCR) | payer MEDICARE, OTHER, SELFPAY ==
[2022-05-14 08:28] VITALS: BMI 40.0
[2022-05-30 00:43] VITALS: BP 132/68; BP 136/64
--- NOTE | 2022-06-13 06:46 | PR.ITP_ITS ---
Exercise - 60-Day Assessment - Visit Date of Eval: 06/13/22 Session Number:: 14 - Patient missed 6 sessions due to COVID-19 infection/quarantine procedure. - Physician Prescribed Exercise Modalities: NuStep, SciFit Frequency (days/week): 3 Duration (Minutes):: 56:24 Intensity: 60-80% of age predicted maximum heart rate reserve Aerobic Exercise [30-60 min 3-7x/week]:: Progressing Perri-14 Current METSs: 3.0 slow progression due to other medical conditions. Target HR:: 127 - THRR 97-127 Current RPD:: 3 Maximum Exercise HR:: 110 Resting Blood Pressure: 120/62 Maximum Exercise Blood Pressure: 132/66 Minimum SpO2 with exercise: 91 - on 4 liters EKG Type: NSR to sinus tach w/a rare PAC and PVC Current Minutes of Exercise: 56:24 - Home Exercise Home Exercise:: No Nutrition/Wt Mgmt - 60-Day - Visit Date of Eval: 06/13/22 Session Number:: 14 - Weight Management Height: 5 ft 2 in Weight:: 218 lb BMI: 39.9 Weight Goals Progress:: Referral to structured weight management program Psychosocial - 60-Day - Visit Date of Eval: 06/13/22 Session Number:: 14 - Problems/Goals History of Emotional Disorders: Anxious, Depression Psychosocial Goals: 1. Patient is free from overwhelming symtoms of depression (or anxiety, 2. Identifies personal stressors & states the strategies for managing, 3. Identifies activities to decrease isolation and/or symptoms of, 4. Improved psychosocial coping skills., 5. Verbalizes coping strategies., 6. Adequate treatment of depression., 7. Improved Q.O.L. Depression:: Self report, Anxiety, Impaired QOL Self-reported stressors: Medical/Health - Psychosocial Test Tool Used:: PHQ-9 Questionnaire - Referral to Behavioral Health PS - Interventions: Yes Attend Stress Management Classes, No Referral to Behavioral Health if PHQ-9 score >9:, No Referral to [facility], No Referral to Physician if PHQ-9 if score is 5-9: - Plan Interventions/Plan:: Assess stressors,coping strategies & signs of derpression on admission, Instruct/assist pt to develop coping & personal stress Mgt strategies, Instruct patient to recognize signs & symptoms of depression, Instruct patient to recog Oxygen & Oxygen Titration 60D - Visit Date of Eval: 06/13/22 Session Number:: 14 - Reassessment Reassessment- 60 Days: Demonstrate knowledge of O2 Rx at rest & w/exercise, Using O2 as Rx'd, Has home O2 as Rx'd, Uses port O2 as Rx'd Breath Sounds:: Diminished, Insp. & Exp. Wheezing SpO2:: 93 - on her 3 liters Core Components - Initial Core Components - 30 DAYS Core Components - 60 DAYS - Visit Date of Eval: 06/13/22 Session Number:: 14 - Hypertension Hypertension Diagnosis:: Hypertension ICD-10 I10 Resting Blood Pressure:: 120/62 [place] [employer] Hypertension Guidelines: [place] [employer] Hypertension Guidelines. Normal BP Less than 120/80. Elevated BP 120/80. Hypertension Stage 1: BP 130-139/80-89. Hypertesnion Stage 2: BP 140 or higher/90 or higher. Hypertension Crisis: BP higher than 180/120 Peak Exercise Blood Pressure:: 138/64 Change in medication: No Outcomes/Goals: Able to verbalize/achieve optimal blood pressure <130/80, Incorporates diet changes & exercise for blood pressure control by DC Interventions/plan: Instruct on optimal blood pressure, hypertension & medications, Instruct on effects of sodium, alcohol, stress, exercise &hypertension 60 day Reassessments:: Progressing - Tobacco - 60-Day Tobacco Program Goals: Complete smoking cessation. Attend education classes. Improve Knowledge Test score Tobacco Use: Non-smoker - Exacerbation Mgmt & Airway Clearance Reassessment: Demonstrates knowledge of O2 Rx at rest, Demonstrates knowledge of O2 Rx with exercise, Using O2 as prescribed, Has home O2 as prescribed, Uses port O2 as prescribed Bronchial Hygiene Plan: Yes Pt demo correct for device - SMI, PFlex, Spacer, Acapella, Yes Pt demo correct for improved hydration, Yes Pt demo correct for hand hygiene, Yes Pt demo correct for verbalize when to call MD - Medication Medication list reviewed:: Yes Taking medications 100% of the time:: Met Taking medications 100% of the time:: Met Medication reassessment: Yes Pt demonstrates correct technique timing for MDI, Yes Pt demonstrates correct technique timing for DPI, Yes Pt demonstrates correct technique timing for NEB, Yes Pt demonstrates correct technique timing for spacer 60-day Reassessments:: Met - Diabetes Diabetes:: Yes Fasting blood glucose:: 188 Hgb A1C: 7.9 BMI:: 38.4 Insulin dependent injection/pump?: Yes Non-Insulin Dependent?: Yes Do you monitor your blood sugar at home?: Yes Referral to Diabetic Clinic:: Yes Refer to Nutritional Services: DSMNT & MNT 60-day Reassessments:: Progressing - Heart Failure Documenting weight rafi: No Core Components - 90 DAYS Core Components - Final Patient Health Questionnaire 60-Day Re-eval Assessment 1. Little interest or pleasure in doing things: Not at all 2. Feeling down, depressed, or hopeless: Not at all 3. Trouble falling or staying asleep, or sleeping too much: Not at all 4. Feeling tired or having little energy: More than half the days 5. Poor appetite or overeating: More than half the days 6. Feeling bad about yourself -- or that you are a failure or have let yourself or your family down: Not at all 7. Trouble concentrating on things, such as reading the newspaper or watching television: Not at all 8. Moving or speaking so slowly that other people could have noticed. Or the opposite - being so fidgety or restless that you have been moving around a lot more than usual: Not at all 9. Thoughts that you would be better off , or of hurting yourself in some way: Not at all How difficult have these problems made it for you to do your work, take care of things at home, or get along with other people?: Somewhat difficult Total Score: 4 Knowledge Questionaire (BCKQ) - Information Information: [place] COPD Knowledge Questionnaire (BCKQ) This questionnaire is designed to find out what you know about your lung problem. It should be completed without help form anyone else. This usually takes between 10 and 20 minutes. Your answers will help us to find out what information you need to help you to understand and manage your lung condition. [place] which you think is the correct answer. Self-Efficacy 60-Day Re-eval Assessment We would like to know how confident you are in doing certain activities. Please select your confidence level for:: Select your confidence level for the following using the scale 1-10 where 1 is not at all confident and 10 is totally confident. Your score is the average of all 6 responses. Fatigue: How confident are you that you can keep the fatigue caused by your disease from interfering with the things you want to do? Select Number: 3 Physical Discomfort or Pain: How confident are you that you can keep the physical discomfort or pain of your disease from interfering with the things you want to do? Select Number: 3 Emotional Distress: How confident are you that you can keep the emotional distress caused by your disease from interfering with the things you want to do? Select Number: 3 Other Symptoms or Health Problems: How confident are you that you can keep other symptoms or health problems from interfering with the things you want to do? Select Number: 3 Different Tasks and Activities: How confident are you that you can do the different tasks and activities needed to manage your health condition so as to reduce your need to see a doctor? Select Number: 3 Medication: How confident are you that you can do things other than just taking medication to reduce how much your illness affects your everyday life? Select Number: 4 Total Score:: 3 Nutrition Survey
[2022-06-13 06:54] VITALS: BP 120/62; BP 138/64; O2SAT 93; BMI 38.4; BMI 39.9
== END 2022-06-29 23:59 ==
LOC: PR 10:30
PROVIDERS: PCP Internal Medicine; Referring Provider Internal Medicine Pulmonary Disease; Visit Provider Internal Medicine Pulmonary Disease
DX: I27.20 Pulmonary hypertension, unspecified (principal); J45.40 Moderate persistent asthma, uncomplicated
CPT/HCPCS: 97150; G0239

== ENCOUNTER → 2022-06-27 | Outpatient (CLI) | payer MEDICARE, OTHER, SELFPAY ==
[2022-06-13 06:54] VITALS: BMI 39.9
--- NOTE | 2022-06-27 12:10 | BI_ITS ---
MAMMOGRAPHY - BILATERAL SCREENING REASON FOR EXAM: Female, 71 years old. Routine annual screening examination. PERTINENT HISTORY: Non-contributory. TECHNIQUE: Digital bilateral breast luis (3D mammographic acquisition) in the CC and MLO projections. 2-D mediolateral oblique (MLO) and craniocaudad (CC) views of both breasts were obtained. CAD: Full Field Digital Mammography with Computer Added Detection was performed. COMPARISON: Comparison is made with prior examination dated 06/27/2021 and 06/26/2020. FINDINGS: Breast Composition: The breasts are almost entirely fatty. There are no dominant masses or suspicious calcifications. Stable small benign-appearing bilateral axillary lymph nodes. No other significant abnormalities are identified. There has been no significant change since the prior study. BI/SCRN MAMM (CAD)W/LUIS BILAT IMPRESSION: Stable bilateral screening mammogram. Yearly follow-up mammogram recommended. (A) ASSESSMENT CATEGORY: BIRADS Category 2: Benign. A letter regarding these results will be sent to the patient by the facility within 30 days. Approximately 10% of breast cancers are not detected by mammography. A normal mammogram should not delay biopsy of a clinically suspicious abnormality. [id number] Electronically Signed: Anam Larios MD at 13:00 EDT ,
== END | disposition home or self-care (01) ==
PROVIDERS: PCP Internal Medicine; Visit Provider Internal Medicine
DX: Z12.31 Encounter for screening mammogram for malignant neoplasm of breast (principal); I27.20 Pulmonary hypertension, unspecified; J45.40 Moderate persistent asthma, uncomplicated
CPT/HCPCS: 77063; 77067; 97150; G0239

== ENCOUNTER → 2022-07-22 | Outpatient (CLI) | payer MEDICARE, OTHER, SELFPAY ==
[2022-07-11 11:12] VITALS: BMI 40.4
--- NOTE | 2022-07-22 15:12 | RAD_ITS ---
INDICATION: COUGH EXAMINATION/TECHNIQUE: X-RAY - XR Chest 2 Views COMPARISON: June 20, 2022. FINDINGS: LINES/DEVICES: None. LUNGS: Mild bilateral chronic interstitial and peribronchial thickening. No consolidation or effusion. No pneumothorax. MEDIASTINUM AND CARDIOVASCULAR STRUCTURES: Unchanged cardiomegaly. Aortic atherosclerosis. Bilateral hilar calcified lymph nodes with small pulmonary calcified granulomas BONES AND SOFT TISSUES: Severe dextrocurvature of the thoracolumbar spine with prior upper lumbar vertebroplasty change.. RAD/Chest PA and Lateral IMPRESSION: Cardiomegaly with mild interstitial and peribronchial thickening, compatible with mild interstitial edema or bronchitis/bronchiolitis. 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 Pulmonary and mediastinal sequela of prior granulomatous disease. Electronically Signed: Tj Amador MD at 5:24 EDT ,
== END | disposition home or self-care (01) ==
LOC: MTRAD 15:10
PROVIDERS: PCP Internal Medicine; Referring Provider Internal Medicine Pulmonary Disease; Visit Provider Internal Medicine Pulmonary Disease
DX: R05.9 Cough, unspecified (principal); R06.00 Dyspnea, unspecified
CPT/HCPCS: 71046

== ENCOUNTER 2022-07-28 10:22 | Outpatient (CLI) | payer MEDICARE, OTHER, SELFPAY ==
[2022-07-11 11:12] VITALS: BMI 40.4
== END 2022-07-28 23:59 | disposition home or self-care (01) ==
PROVIDERS: PCP Internal Medicine; Visit Provider Internal Medicine Pulmonary Disease
DX: R06.00 Dyspnea, unspecified (principal); I27.20 Pulmonary hypertension, unspecified; J85.2 Abscess of lung without pneumonia; J45.40 Moderate persistent asthma, uncomplicated
CPT/HCPCS: 87070; 87205; 97150; G0239

== ENCOUNTER 2022-07-30 13:00 | Outpatient (RCR) | payer MEDICARE, OTHER, SELFPAY ==
[2022-06-13 06:54] VITALS: BMI 39.9
[2022-06-30 00:33] VITALS: BP 120/62; BP 138/64
--- NOTE | 2022-07-11 08:39 | PCM.PR.TP ---
Exercise - 60-Day Assessment - Visit Date of Eval: 07/11/22 Session Number:: 26 - Physician Prescribed Exercise Modalities: NuStep, SciFit Intensity: 60-80% of age predicted maximum heart rate reserve Aerobic Exercise [30-60 min 3-7x/week]:: Not progressing - Patient has reached maximum levels Perri-14 Current METSs: 3.0 Target HR:: 127 - THRR 97-127 Current RPD:: 3 Resting Blood Pressure: 112/48 Maximum Exercise Blood Pressure: 128/54 Minimum SpO2 with exercise: 91 EKG Type: Normal Sinus rhythm with occasional PAC and PVC Current Minutes of Exercise: 39:44 - Home Exercise Home Exercise:: No Nutrition/Wt Mgmt - 60-Day - Visit Date of Eval: 07/11/22 Session Number:: 25 - Weight Management Height: 5 ft 2 in Weight:: 221 lb BMI: 40.4 Weight Goals Progress:: Not progressing - patient weight unchanged; recently retaining fluid with weight gain 4# increased lasix Psychosocial - 60-Day - Visit Date of Eval: 07/11/22 Session Number:: 25 - Problems/Goals History of Emotional Disorders: Anxious, Depression Psychosocial Goals: 1. Patient is free from overwhelming symtoms of depression (or anxiety, 2. Identifies personal stressors & states the strategies for managing, 3. Identifies activities to decrease isolation and/or symptoms of, 4. Improved psychosocial coping skills., 5. Verbalizes coping strategies., 6. Adequate treatment of depression., 7. Improved Q.O.L. - Psychosocial Test Tool Used:: PHQ-9 Questionnaire - Referral to Behavioral Health PS - Interventions: Yes Referral to Physician if PHQ-9 if score is 5-9:, Yes Attend Stress Management Classes, No Referral to Behavioral Health if PHQ-9 score >9:, No Referral to [facility] - Plan Interventions/Plan:: Assess stressors,coping strategies & signs of derpression on admission, Instruct/assist pt to develop coping & personal stress Mgt strategies, Instruct patient to recognize signs & symptoms of depression, Instruct patient to recog Oxygen & Oxygen Titration 60D - Visit Date of Eval: 07/11/22 Session Number:: 25 - Reassessment Reassessment- 60 Days: Demonstrate knowledge of O2 Rx at rest & w/exercise, Using O2 as Rx'd, Has home O2 as Rx'd, Uses port O2 as Rx'd Breath Sounds:: Crackles, Diminished, Insp. & Exp. Wheezing SpO2:: 93 - on her 3 liters Core Components - Initial Core Components - 30 DAYS Core Components - 60 DAYS - Visit Date of Eval: 07/11/22 Session Number:: 25 - Hypertension Hypertension Diagnosis:: Hypertension ICD-10 I10 Resting Blood Pressure:: 112/48 [place] [employer] Hypertension Guidelines: [place] [employer] Hypertension Guidelines. Normal BP Less than 120/80. Elevated BP 120/80. Hypertension Stage 1: BP 130-139/80-89. Hypertesnion Stage 2: BP 140 or higher/90 or higher. Hypertension Crisis: BP higher than 180/120 Peak Exercise Blood Pressure:: 128/57 Change in medication: No Outcomes/Goals: Able to verbalize/achieve optimal blood pressure <130/80, Incorporates diet changes & exercise for blood pressure control by DC Interventions/plan: Instruct on optimal blood pressure, hypertension & medications, Instruct on effects of sodium, alcohol, stress, exercise &hypertension 60 day Reassessments:: Met - Patient very understanding of her HTN - Exacerbation Mgmt & Airway Clearance Reassessment: Demonstrates knowledge of O2 Rx at rest, Demonstrates knowledge of O2 Rx with exercise, Using O2 as prescribed, Has home O2 as prescribed, Uses port O2 as prescribed Bronchial Hygiene Plan: Yes Pt demo correct for device - PFlex, SMI, Spacer, Yes Pt demo correct for sputum management - Acapella device, Yes Pt demo correct for improved hydration, Yes Pt demo correct for hand hygiene, Yes Pt demo correct for verbalize when to call MD - Medication Medication list reviewed:: Yes Taking medications 100% of the time:: Met Medication reassessment: Yes Pt demonstrates correct technique timing for MDI, Yes Pt demonstrates correct technique timing for DPI, Yes Pt demonstrates correct technique timing for NEB, Yes Pt demonstrates correct technique timing for spacer - Diabetes Diabetes:: No - Heart Failure Documenting weight rafi: Yes Core Components - 90 DAYS Core Components - Final Patient Health Questionnaire 60-Day Re-eval Assessment 1. Little interest or pleasure in doing things: Not at all 2. Feeling down, depressed, or hopeless: Not at all 3. Trouble falling or staying asleep, or sleeping too much: Not at all 4. Feeling tired or having little energy: More than half the days 5. Poor appetite or overeating: More than half the days 6. Feeling bad about yourself -- or that you are a failure or have let yourself or your family down: Not at all 7. Trouble concentrating on things, such as reading the newspaper or watching television: Not at all 8. Moving or speaking so slowly that other people could have noticed. Or the opposite - being so fidgety or restless that you have been moving around a lot more than usual: More than half the days 9. Thoughts that you would be better off , or of hurting yourself in some way: Not at all How difficult have these problems made it for you to do your work, take care of things at home, or get along with other people?: Somewhat difficult Total Score: 6 Knowledge Questionaire (BCKQ) - Information Information: [place] COPD Knowledge Questionnaire (BCKQ) This questionnaire is designed to find out what you know about your lung problem. It should be completed without help form anyone else. This usually takes between 10 and 20 minutes. Your answers will help us to find out what information you need to help you to understand and manage your lung condition. Rayo the absentee-shawnee which you think is the correct answer. Self-Efficacy 60-Day Re-eval Assessment We would like to know how confident you are in doing certain activities. Please select your confidence level for:: Select your confidence level for the following using the scale 1-10 where 1 is not at all confident and 10 is totally confident. Your score is the average of all 6 responses. Fatigue: How confident are you that you can keep the fatigue caused by your disease from interfering with the things you want to do? Select Number: 4 Physical Discomfort or Pain: How confident are you that you can keep the physical discomfort or pain of your disease from interfering with the things you want to do? Select Number: 4 Emotional Distress: How confident are you that you can keep the emotional distress caused by your disease from interfering with the things you want to do? Select Number: 4 Other Symptoms or Health Problems: How confident are you that you can keep other symptoms or health problems from interfering with the things you want to do? Select Number: 4 Different Tasks and Activities: How confident are you that you can do the different tasks and activities needed to manage your health condition so as to reduce your need to see a doctor? Select Number: 5 Medication: How confident are you that you can do things other than just taking medication to reduce how much your illness affects your everyday life? Select Number: 5 Total Score:: 4 Nutrition Survey
[2022-07-11 08:48] VITALS: BP 112/48; BP 128/57; O2SAT 93; BMI 40.4
[2022-07-11 11:12] VITALS: BMI 40.4
== END 2022-07-30 23:59 ==
LOC: PR 13:00
PROVIDERS: PCP Internal Medicine; Referring Provider Internal Medicine Pulmonary Disease; Visit Provider Internal Medicine Pulmonary Disease
DX: I27.20 Pulmonary hypertension, unspecified (principal); J45.40 Moderate persistent asthma, uncomplicated
CPT/HCPCS: 97150; G0239

== ENCOUNTER 2022-08-06 13:00 | Outpatient (RCR) | payer MEDICARE, OTHER, SELFPAY ==
[2022-07-11 11:12] VITALS: BMI 40.4
[2022-07-31 00:34] VITALS: BP 112/48; BP 128/57
== END 2022-08-29 23:59 ==
LOC: PR 13:00
PROVIDERS: PCP Internal Medicine; Referring Provider Internal Medicine Pulmonary Disease; Visit Provider Internal Medicine Pulmonary Disease
DX: I27.20 Pulmonary hypertension, unspecified (principal); J45.40 Moderate persistent asthma, uncomplicated
CPT/HCPCS: 97150; G0239

== ENCOUNTER → 2022-10-06 | Outpatient (CLI) | payer MEDICARE, OTHER, SELFPAY ==
[2022-07-11 11:12] VITALS: BMI 40.4
[2022-10-06 15:28] LABS: Hematocrit 35.3 % (37-47); Hemoglobin 11.2 g/dL (12.0-15.0); Mean Corp Hgb Conc 31.7 g/dL (32-36); Mean Corpuscular Hgb 31.3 pg (27.0-32.0); Mean Corpuscular Volume 98.6 fL (81-99); Mean Platelet Vol. 9.9 fl (6.2-12.0); Platelet Count 282 K/mm3 (150-450); RBC Distribution Width CV 14.4 % (11.6-14.6); RBC Distribution Width SD 52.6 fl (35.1-43.9); Red Blood Count 3.58 M/mm3 (4.2-5.4); White Blood Count 7.7 K/mm3 (4.4-11.0)
[2022-10-06 15:47] LABS: Vitamin D,25 Hydroxy 78.2 ng/mL
[2022-10-06 15:52] LABS: Albumin, Serum 3.7 g/dL (3.2-5.0); BUN 47 mg/dL (7-18); BUN/Creat Ratio 22.2 RATIO (10-20); Calcium,Total 10.9 mg/dL (8.5-10.1); Chloride 103 mmol/L (98-107); Creatinine, Serum 2.12 mg/dL (0.55-1.02); EST Glomerular Filtration Rate 24 mL/min (>60); Est Glom Filt Rate - Afr Amer 30 mL/min (>60); Glucose 179 mg/dL (74-106); Phosphorus 2.5 mg/dL (2.5-4.9); Potassium 3.9 mmol/L (3.5-5.1); Sodium Level 141 mmol/L (136-145); Uric Acid 6.1 mg/dL (2.6-6.0)
[2022-10-06 15:54] LABS: Microalbumin,Random Urine 7.8 mg/L (NO RANGE EST.); Microalbumin:Creatinine Ratio 18.5 mg/g CRE (<30 mg/g CRE)
[2022-10-07 08:06] LABS: PTHIN 47.8 pg/mL (18.4-80.1)
== END | disposition home or self-care (01) ==
PROVIDERS: PCP Internal Medicine; Referring Provider Internal Medicine Nephrology; Visit Provider Internal Medicine Nephrology
DX: N18.4 Chronic kidney disease, stage 4 (severe) (principal); E83.52 Hypercalcemia; D63.1 Anemia in chronic kidney disease; M10.9 Gout, unspecified
CPT/HCPCS: 36415; 80069; 82043; 82306; 82570; 83735; 83970; 84550; 85027

== ENCOUNTER 2022-11-12 09:55 | Outpatient (RCR) | payer MEDICARE, OTHER, SELFPAY ==
[2022-07-11 11:12] VITALS: BMI 40.4
--- NOTE | 2022-11-12 11:26 | HP.PTEVAL_ITS ---
Patient's Visit Information WALLACE BAZAN is a 71 year old F referred to Physical Therapy by Dr. Will Oliveira MD with a diagnosis of CONTUSION OF LEFT HIP,ONTUSION OF LEFT SHOULDER. Date of Evaluation: 11/12/22 Physical Therapist: Nghia Willis, PT, Cert MDT, OCS - Visit Plan Frequency: 1 VISIT Plan: D/C TO HEP - Subjective This 71 y/o female presents to physical therapy with left shoulder and hip pain. Patient had a fall ~ 2weeks ago landed on left side while using walker. Patient seen DR Oliveira did x-rays - hip and shoulder and recommended PT . MEDS for lidocaine patches and tramadol. Patient located at shoulder UT and hip pain located lateral hip and posterior glut. Aggravating factors lifting arm ,turning neck to left ,laying on left , affecting ADL's and housework tasks. Patient uses walker rollator in home and community scooter. Patient uses scoo ter for back pain. Aggravating factors hip standing ,walking stairs. Pain affects sleeping. Patient elevating factors ice MEDS and rest for both condition. Denies paresthesia/tingling . Patient symptoms affects QOL and function. VOCATION: retired. SOCIAL: . - Pain Left Hip Pain Intensity (Out of 10): 2 Pain Intensity Range: 10 Left Shoulder Pain Intensity (Out of 10): 5 Pain Intensity Range: 10 - Objective POSTURE: rounded shoulders mod thoracic kyphosis. NUERO: denies paresthesia/tingling. PALPATION: tender UT/levator. SYMMTRIES: align. AROM: flexion 150 degrees ,abduction 145 scaption ,ER 80. MMT: RTC LEFT 4/5 supraspinatus 4-/5 pain. AROM HIP : flexion 100 degrees ,abduction 35 degrees. MMT: quads/hams 4/5 ,hip flexion 4-/5 ,ankle 4/5. GAIT: used scooter ,ambulates with rollator 10 ft - Special Tests L Hip Scour: Negative L Hip Quadrant - Intraarticular Pathology: Negative L Hip Zahida - IT Band: Negative L Hip Resisted Exernal Derotation Test - GT Pain Syndrome: Negative L Shoulder Supine Impingement Test - RC Tear: Negative L Shoulder Lift Off Test - Subscapular Tear: Negative L Shoulder Drop Sign - IS Test: Negative L Shoulder Empty Can - SS: Negative L Shoulder Belly Press - SupScap: Negative - Goals Goal 1:: Provided HEP Goal Time Frame: 1 visits - Rehabilitation Potential Physical Therapy Diagnosis: Patient fell and caused contusion to left shoulder and hip with pain and weakness affects walking and ADLS and provided HEP Rehabilitation Potential: Good - Anticipated Interventions Patient/Client Instruction: Educate patient on: Condition For the Purpose of:: To decrease pain, To increase ROM, To increase tolerance to activity/condition/position, To improve ability of physical actions for home/community/work/leisure, To improve health of tissue, To decrease soft tissue restriction, To improve tolerance to ADL's Thank you for the opportunity to evaluate your patient. For Medicare and Medicare HMO plans, please review the plan of care and approve it. It will need to be FAXED BACK to us at [phone] for Medicare purposes. For Medicare only, by signing this I certify the plan of care. Please let me know if there are questions or concerns regarding this plan of care. Physician Signature: Date:
== END 2022-11-12 19:00 | disposition home or self-care (01) ==
LOC: PT 09:55
PROVIDERS: PCP Internal Medicine; Referring Provider Orthopaedic Surgery; Visit Provider Orthopaedic Surgery
DX: S70.02XA Contusion of left hip, initial encounter (principal); S40.012A Contusion of left shoulder, initial encounter
CPT/HCPCS: 97110; 97162

== ENCOUNTER → 2022-12-31 | Outpatient (CLI) | payer MEDICARE, OTHER, SELFPAY ==
[2022-07-11 11:12] VITALS: BMI 40.4
--- NOTE | 2022-12-31 15:26 | RAD_ITS ---
INDICATION: ABD PAIN EXAMINATION/TECHNIQUE: X-RAY - XR Abdomen W/ Decub and/or Erect Views COMPARISON: None. FINDINGS: The bowel gas pattern is normal. There is no bowel obstruction or free intraperitoneal air. No abnormal mass or calcification is seen. Surgical hardware in the lumbar spine, scoliosis, vertebral plasty changes. Interstitial changes in the lung bases with small left pleural effusion versus pleural thickening. RAD/Abd Inc Decub and/or Erect IMPRESSION: Non-obstructive bowel gas pattern. Small left pleural effusion versus pleural thickening. Chest x-ray correlation may be helpful as clinically indicated. Electronically Signed: Olivia Perez MD at 7:22 EST ,
== END | disposition home or self-care (01) ==
LOC: MTRAD 15:24
PROVIDERS: PCP Internal Medicine; Referring Provider Internal Medicine Gastroenterology; Visit Provider Internal Medicine Gastroenterology
DX: R10.9 Unspecified abdominal pain (principal)
CPT/HCPCS: 74019

== ENCOUNTER 2023-02-22 | Inpatient (IN) | payer MEDICARE, OTHER, SELFPAY ==
[2022-07-11 11:12] VITALS: BMI 40.4
[2023-02-22] VITALS (16 sets, daily range): BP systolic 106–144; BP diastolic 48–57; PULSE 60–91; RESP 16–24; TEMP 36.1–36.6; O2SAT 95–100; BMI 42.8; BMI 43.0; BMI 54.2
--- NOTE | 2023-02-22 00:15 | RAD_ITS ---
INDICATION: cough EXAMINATION/TECHNIQUE: X-RAY - XR Chest 2 Views COMPARISON: 07/22/2022. FINDINGS: LINES/DEVICES: None. LUNGS: Diffuse bilateral interstitial opacities, right lung greater than left lung. No evidence of a pleural effusion or a pneumothorax. MEDIASTINUM AND CARDIOVASCULAR STRUCTURES: Stable cardiomegaly. Mediastinum is unremarkable. BONES AND SOFT TISSUES: No acute abnormality. RAD/Chest PA and Lateral IMPRESSION: 1. Mild diffuse interstitial opacities, right greater the left, which may represent asymmetric edema or atypical pneumonia. 2. Stable cardiomegaly. Electronically Signed: Andry Evans DO at 0:55 EDT ,
--- NOTE | 2023-02-22 00:27 | EDS_ITS ---
HPI History of Present Illness Chief Complaint: Shortness of Breath Narrative Narrative: Patient is a 72-year-old female with past medical history of paroxysmal atrial fibrillation to sleep apnea insulin-dependent diabetes and COPD wearing 3 to 4 L of nasal cannula oxygen 22/06. She states she has had cough and shortness of breath for approximately 1 week. She states that her daughter and granddaughter were sick prior to her beginning with her symptom. She denies any fevers or chills but states that despite wearing her oxygen and taking her home breathing treatments she feels like she has not had any symptom improvement and therefore comes in for evaluation. [facility] Medical History Allergic rhinitis Asthma Chronic kidney disease Chronic obstructive lung disease Chronic renal failure, stage 3 (moderate) Compression fracture of L1 vertebra Constipation COVID-19 Debility Diabetes Diabetes mellitus type 2 in obese Dysphagia Essential (primary) hypertension GERD (gastroesophageal reflux disease) Gout Hyperlipidemia Hyperuricemia Intractable low back pain L1 vertebral fracture Leukocytosis Lung abscess Morbid obesity Muscle spasm Noncompliance with CPAP treatment Obesity Obesity (BMI 30-39.9) Obstructive sleep apnea On home O2 Osteopenia Osteoporosis Osteoporosis Overactive bladder Paroxysmal atrial fibrillation Pneumonia Right bundle branch block (RBBB) Sarcoidosis Secondary pulmonary arterial hypertension Type 2 diabetes mellitus Venous insufficiency of both lower extremities Home Medications fluticasone propionate 50 mcg/actuation nasal spray,suspension 2 spray NASAL DAILY PRN PRN Congestion 06/21/17 [History Last Taken 11/19/20] febuxostat 40 mg tablet 40 mg PO DAILY gout 12/30/18 [History Last Taken 11/19/20] fluticasone 500 mcg-salmeterol 50 mcg/dose blistr powdr for inhalation (Advair Diskus) 1 inh inhalation BID SOB 07/17/20 [History Last Taken 11/19/20] montelukast 10 mg tablet 10 mg PO QHS ALLERGIES 11/19/20 [History Last Taken 11/18/20] tramadol 50 mg tablet 50 mg PO Q8H PRN Pain Score 4-5 #9 tabs 12/05/20 [Rx Last Taken Unknown] acetaminophen 650 mg tablet,extended release (Tylenol Arthritis Pain) 650 mg PO Q12H 02/08/21 [History Last Taken Unknown] albuterol sulfate 90 mcg/actuation aerosol inhaler 2 puff inhalation Q4H PRN sob 02/08/21 [History Last Taken Unknown] ammonium lactate 12 % topical cream 1 applic topical DAILY PRN Dry Skin 02/08/21 [History Last Taken Unknown] aspirin 81 mg tablet,delayed release 81 mg PO DAILY #1 TAB 02/08/21 [Rx Last Taken Unknown] cyanocobalamin (vitamin B-12) 1,000 mcg tablet 1,000 mcg PO DAILY Supplement Glass [employer] 02/08/21 [History Last Taken Unknown] fluconazole 150 mg tablet 150 mg PO Q3D PRN yeast 02/08/21 [History Last Taken Unknown] pantoprazole 40 mg tablet,delayed release 40 mg PO BID GERD 02/08/21 [History Last Taken Unknown] triamterene 37.5 mg-hydrochlorothiazide 25 mg tablet 1 tab PO DAILY 02/08/21 [ History Last Taken Unknown] loratadine 10 mg tablet (Claritin) 10 mg PO DAILY 01/14/22 [History Last Taken Unknown] mirabegron 50 mg tablet,extended release 24 hr (Myrbetriq) 50 mg PO DAILY 01/14/22 [History Last Taken Unknown] tiotropium bromide 1.25 mcg/actuation mist for inhalation (Spiriva Respimat) 2 puff inhalation DAILY 01/14/22 [History Last Taken Unknown] diltiazem HCl 180 mg capsule,24 hr,extended release 180 mg PO DAILY #90 caps 05/27/22 [Rx Last Taken Unknown] fenofibrate nanocrystallized 145 mg tablet (Tricor) 145 mg PO DAILY 10/16/22 [History Last Taken Unknown] sitagliptin phosphate 50 mg tablet (Januvia) 50 mg PO DAILY 10/16/22 [History Last Taken Unknown] budesonide 0.5 mg/2 mL suspension for nebulization 0.5 mg inhalation BID 12/11/22 [History Last Taken Unknown] cholecalciferol (vitamin D3) 25 mcg (1,000 unit) tablet 5,000 unit PO DAILY supplement 12/11/22 [History Last Taken Unknown] cimetidine 200 mg tablet (Tagamet HB) 200 mg PO DAILY 12/11/22 [History Last Taken Unknown] furosemide 40 mg tablet 40 mg PO DAILY 12/11/22 [History Last Taken Unknown] insulin aspart U-100 100 unit/mL (3 mL) subcutaneous pen (Novolog FlexPen U-100 Insulin aspart) See Rx Instructions subcut TID 12/11/22 [History Last Taken Unknown] insulin glargine 100 unit/mL (3 mL) subcutaneous pen 37 unit subcut QPM DM 12/11/22 [History Last Taken Unknown] ipratropium 0.5 mg-albuterol 3 mg (2.5 mg base)/3 mL nebulization soln 3 ml inhalation BID PRN wheezing 12/11/22 [History Last Taken Unknown] levalbuterol HCl 0.63 mg/3 mL solution for nebulization 0.63 mg inhalation Q6H PRN 12/11/22 [History Last Taken Unknown] lidocaine 5 % topical patch 2 patch topical DAILY 12/11/22 [History Last Taken Unknown] losartan 100 mg tablet 100 mg PO DAILY 12/11/22 [History Last Taken Unknown] polyethylene glycol 3350 17 gram oral powder packet (Miralax) 17 g PO DAILY 12/11/22 [History Last Taken Unknown] pen needle, diabetic 32 gauge x 5/32 (BD Ultra-Fine Sonam Pen Needle) #400 ea 01/22/23 [Rx Last Taken Unknown] flash glucose sensor (FreeStyle Garett 2 Sensor kit) #1 ea 02/19/23 [Rx Last Taken Unknown] Allergy/AdvReac Type Severity Reaction Status Date / Time doxycycline Allergy Intermediate GI problems Verified 12/11/22 11:43 clindamycin Allergy Rash Verified 10/16/22 14:10 insulin detemir Allergy Rash Verified 10/16/22 14:10 [From Levemir U-100 Insulin] ciprofloxacin AdvReac Mild Upset Verified 10/16/22 14:10 Stomach amoxicillin trihydrate AdvReac Nausea Verified 10/16/22 14:10 [From Augmentin] morphine AdvReac Nausea Verified 10/16/22 14:10 potassium clavulanate AdvReac Nausea Verified 10/16/22 14:10 [From Augmentin] Family History Father Hypertension Colon cancer Cancer lung Mother Hypertension Heart disease Diabetes Surgical History History of cholecystectomy History of knee replacement procedure of left knee History of laminectomy History of right and left heart catheterization (05/04/20) Social History Smoking Status: Former smoker how long ago did patient quit smokin years ago alcohol intake: never substance use type: does not use caffeine: Yes Type: coffee Number of servings: 2 ROS ROS ED Constitutional Constitutional ED: Denies chills or fever(s) ENT ENT ED: Reports rhinorrhea; Denies sore throat Cardiovascular Cardiovascular: Denies chest pain Respiratory/Chest Respiratory/Chest: Reports cough and dyspnea Gastrointestinal Gastrointestinal: Denies abdominal pain, diarrhea, nausea or vomiting Genitourinary Genitourinary ED: Denies dysuria Musculoskeletal Musculoskeletal: Reports back pain; Denies myalgias Integumentary Denies rash Neurologic Neurologic: Denies headache(s) Hematologic/Lymphatic Hematologic/Lymphatic: Denies easy bleeding or easy bruising EXAM Physical Exam Const Vital Signs: 02/22/23 00:01 02/22/23 00:03 02/22/23 00:05 Temperature 97 F L 97 F L Temperature Source Temporal Temporal Pulse Rate 63 60 Respiratory Rate 21 H 20 H Respiratory Effort Short of Breath Labored Respiratory Depth Normal Respiratory Pattern Tachypnea Blood Pressure 113/48 L 113/48 L Blood Pressure Mean 69 69 Pulse Ox 95 95 Oxygen Delivery Method Nasal Cannula Nasal Cannula Nasal Cannula Oxygen Flow Rate (L/min) 4 4 4 02/22/23 00:34 02/22/23 01:20 02/22/23 01:55 Temperature 97.8 F 97.9 F Temperature Source Temporal Temporal Pulse Rate 74 75 76 Respiratory Rate 16 24 H 18 Respiratory Effort Respiratory Depth Respiratory Pattern Blood Pressure 136/56 H 144/57 H Blood Pressure Mean 82 86 Pulse Ox 100 100 Oxygen Delivery Method Nasal Cannula Nasal Cannula Oxygen Flow Rate (L/min) 3 4 Positive well nourished, well developed and obese General Appearance ED: well developed Nutritional Appearance: obese HEENT Reports moist mucous membranes HEENT Narrative: There is cobblestoning the posterior pharynx consistent with sinus drainage without airway edema or compromise. No signs of infection in the posterior pharynx. No tongue or lip swelling Eyes PERRL and EOMs intact bilaterally Neck supple and no JVD Chest Wall palpation of chest normal Resp Resp Narrative: Breath sounds are severely diminished throughout with diffuse expiratory wheeze and faint rhonchi noted in bilateral bases. There is mild tachypnea without nasal flaring or retractions or accessory muscle use Cardio regular rate and regular rhythm GI normal to inspection, nondistended, normoactive bowel sounds, non-tender, non- distended and no masses GI Narrative: No voluntary guarding or rigidity no pulsatile mass Auscultation: normoactive bowel sounds Palpation: soft Extremity Extremity Narrative: Patient has trace to +1 pitting edema to the bilateral lower extremities with negative Homans' sign bilaterally Neuro oriented x3 and CN's II-XII intact bilaterally Sensorium / Orientation: alert Psych mental status grossly normal Skin no rashes or lesions noted MDM MDM MDM Narrative Medical decision making narrative: Patient presented to the ER afebrile and satting 95 to 100% on her normal 3 to 4 L. She reported that her daughter and granddaughter were recently sick and then she began with some congestion cough and shortness of breath. This indicates this is most likely viral in nature. However with concern that she could be developing pneumonia or have possible fluid overload as she does have a history of heart failure elected to perform basic laboratory study. Labs show that her creatinine has elevated from a baseline of 2 to a value of 4.2 indicating acute on chronic kidney. Her potassium is also elevated at 5.8. EKG however shows no signs of acute hyperkalemia. Patient's x-ray question volume overload versus atypical pneumonia therefore procalcitonin was added and a viral respiratory panel was obtained as well. The patient will be started on Rocephin and Zithromax to cover for possible infection while the viral panel is pending. At this time the patient is not in acute respiratory distress as she is satting well on her normal home oxygen but with the acute on chronic kidney injury with hyperkalemia she will need to be watched in the hospital to ensure that there is no worsening of her electrolyte abnormalities and kidney function that she does not require emergent dialysis. This case was discussed with the medicine doctor and she is agreeable to admit the patient at this time. Antibiotics were started in the ER but the hospitalist will begin treating the hyperkalemia on the floor as patient has no physical exam findings or EKG changes of acute hyperkalemia History & Record Review Discussion w/independent historian: Patient and Family Additional record(s) reviewed:: Prior inpatient record Lab Data Attestation: I reviewed the patient's lab results. Labs: Laboratory Results - last 24 hr 02/22/23 02/22/23 02/22/23 00:16 00:16 00:16 WBC 11.4 H RBC 3.47 L Hgb 10.8 L Hct 34.7 L MCV 100.0 H MCH 31.1 MCHC 31.1 L RDW Std Deviation 52.8 H RDW Coeff of Jazzmine 14.4 Plt Count 329 MPV 9.9 Immature Gran % (Auto) 4.700 H Neut % (Auto) 87.0 H Lymph % (Auto) 3.2 L [place] % (Auto) 4.7 Eos % (Auto) 0.0 Baso % (Auto) 0.4 Absolute Neuts (auto) 9.9 H Absolute Lymphs (auto) 0.36 L Nucleated RBC % 0 Differential Comment SCANNED Sodium 135 L Potassium 5.8 H Chloride 105 Carbon Dioxide 19.0 L Anion Gap 11 BUN 127 H* Creatinine 4.19 H Estim Creat Clear Calc 18.45 Est GFR (MDRD) Af Amer 13 L Est GFR (MDRD) Non-Af 11 L BUN/Creatinine Ratio 30.3 H Glucose 232 H Calcium 9.7 Magnesium 2.2 B-Natriuretic Peptide 567.8 H Radiography Diagnostic Testing: Clinical Impression(s) from Imaging Studies Chest X-Ray 02/22/23 00:15 IMPRESSION: 1. Mild diffuse interstitial opacities, right greater the left, which may represent asymmetric edema or atypical pneumonia. 2. Stable cardiomegaly. Electronically Signed: Andry Evans DO at 0:55 EDT Reading Location ID and State: [facility] / [place] Tel , Service support , Chest x-ray as interpreted by the emergency medicine physician reveals bilateral lower lobe opacities slightly greater on the right concerning for pleural effusion versus atypical pneumonia Management Discussion w/another healthcare provider: Hospitalist Discharge Plan Dx/Rx/DC Orders Clinical Impression: Acute kidney injury superimposed on chronic kidney disease, Acute hyperkalemia, Dyspnea, Diabetes Disposition Disposition: [facility] (Former[facility] Care [facility]
[2023-02-22 00:30] LABS: Absolute Lymphocyte Count 0.36 X10^3/uL (0.83-4.51); Absolute Neutrophil Count 9.9 X10^3/uL (2.0-7.7); Basophil# 0.05 X10^3/uL; Basophil% 0.4 % (0-1); Hematocrit 34.7 % (37-47); Hemoglobin 10.8 g/dL (12.0-15.0); Lymphocyte # 0.36 X10^3/ul (0.83-4.51); Lymphocyte % 3.2 % (19-41); Mean Corp Hgb Conc 31.1 g/dL (32-36); Mean Corpuscular Hgb 31.1 pg (27.0-32.0); Mean Platelet Vol. 9.9 fl (6.2-12.0); Monocyte# 0.54 X10^3/uL; Monocyte% 4.7 % (0-10); NRBC Flagged by Analyzer 0 % (0-5); Neutrophil # 9.89 X10^3/uL (2.7-7.7); POSITIVE DIFFERENTIAL YES; Platelet Count 329 K/mm3 (150-450); RBC Distribution Width CV 14.4 % (11.6-14.6); RBC Distribution Width SD 52.8 fl (35.1-43.9); Red Blood Count 3.47 M/mm3 (4.2-5.4); White Blood Count 11.4 K/mm3 (4.4-11.0)
[2023-02-22] MEDS: Ipratropium/Albuterol Sulfate 3 ML AMPUL.NEB INHALATION ×4 (00:33→19:43)
[2023-02-22 00:37] LABS: Differential Indicated SCAN CRITERIA MET
[2023-02-22] MEDS: MethylPREDNISolone 125 MG/2 ML Vial IV (00:37)
[2023-02-22 00:58] LABS: Anion Gap 11 (5-15); BUN 127 mg/dL (7-18); BUN/Creat Ratio 30.3 RATIO (10-20); Calcium,Total 9.7 mg/dL (8.5-10.1); Chloride 105 mmol/L (98-107); Creatinine, Serum 4.19 mg/dL (0.55-1.02); EST Glomerular Filtration Rate 11 mL/min (>60); Est Glom Filt Rate - Afr Amer 13 mL/min (>60); Estimated Creatinine Clearance 18.45 ml/min; Glucose 232 mg/dL (74-106); Magnesium 2.2 mg/dL (1.6-2.6); Potassium 5.8 mmol/L (3.5-5.1); Sodium Level 135 mmol/L (136-145)
[2023-02-22 01:01] LABS: Differential Comment SCANNED
[2023-02-22 01:08] LABS: BNP,B-Type NATRIURETIC PEPTIDE 567.8 pg/mL (0-100)
--- NOTE | 2023-02-22 01:15 | EKG12_ITS ---
Test Reason : SOB Blood Pressure : / mmHG Vent. Rate : 078 BPM Atrial Rate : 078 BPM P-R Int : 180 ms QRS Dur : 170 ms QT Int : 434 ms P-R-T Axes : 077 117 048 degrees QTc Int : 494 ms Normal sinus rhythm Right bundle branch block Septal infarct , age undetermined Abnormal ECG Confirmed by IRA FELIX, KEREN ([id number]), editor farm journal KATHI COLBERT ([id number]) on 02/23/2023 1:34:45 PM Referred By: Confirmed By:KEREN ROTH MD
--- NOTE | 2023-02-22 01:30 | PCM.HP.STD ---
HPI - General General Date of Admission: 02/22/23 Date of Service: 02/22/23 Chief Complaint: Dyspnea, cough, recent ill contacts, not improving. HPI Narrative The patient is a 72 y/o F w/ PMHx: Morbid Obesity, Chronic COPD/Asthma w/ Chronic Hypoxic Respiratory Failure (3-4L NC) complicated by Pulmonary HTN, Diabetes mellitus type II, CKD stage III unclear subtype, PAF, CONCEPCION noncompliant with CPAP, Sarcoidosis, BL LE venous insufficiency/PVD who presents to the [facility] ED on 02/22/23 with history of persistent cough and dyspnea worsening as well as nausea without emesis with poor appetite over the last week with recent ill contacts specifically her daughter and granddaughter with acute upper respiratory type illness with no specific fevers or chills but despite wearing her chronic supplementation no marked improvement prompting eventual ED evaluation. Work-up in the ED included T97, heart rate 63, BP 113/48, respiratory rate 21, 95% on 4 L nasal cannula, CBC with WC 11.4, hemoglobin 10.8, MCV 100, platelet 329 with left shift and lymphopenia, BMP with sodium 135, potassium 5.8,, DEXA 19, BUN/creatinine 127/4.19, glucose 232, magnesium 2.2, BNP 567.8, chest x-ray with mild diffuse interstitial opacities, right greater than left possibly representing asymmetric edema or atypical pneumonia, stable cardiomegaly, full respiratory viral panel pending upon requested evaluation of patient, EKG w/ SR with LBBB with no acute evidence of ischemia and no obvious peaked T waves. In the ED patient ministered IV Solu-Medrol 125 mg IV x1 as well as DuoNeb therapy as well as IV rocephin and azithromycin. [facility] Medical History Allergic rhinitis Asthma Chronic kidney disease Chronic obstructive lung disease Chronic renal failure, stage 3 (moderate) Compression fracture of L1 vertebra Constipation COVID-19 Debility Diabetes Diabetes mellitus type 2 in obese Dysphagia Essential (primary) hypertension GERD (gastroesophageal reflux disease) Gout Hyperlipidemia Hyperuricemia Intractable low back pain L1 vertebral fracture Leukocytosis Lung abscess Morbid obesity Muscle spasm Noncompliance with CPAP treatment Obesity Obesity (BMI 30-39.9) Obstructive sleep apnea On home O2 Osteopenia Osteoporosis Osteoporosis Overactive bladder Paroxysmal atrial fibrillation Pneumonia Right bundle branch block (RBBB) Sarcoidosis Secondary pulmonary arterial hypertension Type 2 diabetes mellitus Venous insufficiency of both lower extremities Home Medications fluticasone propionate 50 mcg/actuation nasal spray,suspension 2 spray NASAL DAILY PRN PRN Congestion 06/21/17 [History Last Taken 11/19/20] febuxostat 40 mg tablet (Uloric) 40 mg PO DAILY gout 12/30/18 [History Last Taken 11/19/20] fluticasone 500 mcg-salmeterol 50 mcg/dose blistr powdr for inhalation (Advair Diskus) 1 inh inhalation BID SOB 07/17/20 [History Last Taken 11/19/20] tramadol 50 mg tablet 50 mg PO Q8H PRN Pain Score 4-5 #9 tabs 12/05/20 [Rx Last Taken Unknown] acetaminophen 650 mg tablet,extended release (Tylenol Arthritis Pain) 650 mg PO Q12H 02/08/21 [History Last Taken Unknown] albuterol sulfate 90 mcg/actuation aerosol inhaler 2 puff inhalation Q4H PRN sob 02/08/21 [History Last Taken Unknown] aspirin 81 mg tablet,delayed release 81 mg PO DAILY #1 TAB 02/08/21 [Rx Last Taken Unknown] pantoprazole 40 mg tablet,delayed release 40 mg PO BID GERD 02/08/21 [History Last Taken Unknown] triamterene 37.5 mg-hydrochlorothiazide 25 mg tablet 1 tab PO DAILY 02/08/21 [History Last Taken Unknown] loratadine 10 mg tablet (Claritin) 10 mg PO DAILY 01/14/22 [History Last Taken Unknown] mirabegron 50 mg tablet,extended release 24 hr (Myrbetriq) 50 mg PO DAILY 01/14/22 [History Last Taken Unknown] tiotropium bromide 1.25 mcg/actuation mist for inhalation (Spiriva Respimat) 2 puff inhalation DAILY 01/14/22 [History Last Taken Unknown] fenofibrate nanocrystallized 145 mg tablet (Tricor) 145 mg PO DAILY 10/16/22 [History Last Taken Unknown] budesonide 0.5 mg/2 mL suspension for nebulization 0.5 mg inhalation BID 12/11/22 [History Last Taken Unknown] cholecalciferol (vitamin D3) 25 mcg (1,000 unit) tablet 5,000 unit PO DAILY supplement 12/11/22 [History Last Taken Unknown] insulin aspart U-100 100 unit/mL (3 mL) subcutaneous pen (Novolog FlexPen U-100 Insulin aspart) See Rx Instructions subcut TID 12/11/22 [History Last Taken Unknown] insulin glargine 100 unit/mL (3 mL) subcutaneous pen 37 unit subcut QPM DM 12/11/22 [History Last Taken Unknown] ipratropium 0.5 mg-albuterol 3 mg (2.5 mg base)/3 mL nebulization soln 3 ml inhalation BID PRN wheezing 12/11/22 [History Last Taken Unknown] levalbuterol HCl 0.63 mg/3 mL solution for nebulization 0.63 mg inhalation Q6H PRN 12/11/22 [History Last Taken Unknown] lidocaine 5 % topical patch 2 patch topical DAILY 12/11/22 [History Last Taken Unknown] losartan 100 mg tablet 100 mg PO DAILY 12/11/22 [History Last Taken Unknown] pen needle, diabetic 32 gauge x 5/32 (BD Ultra-Fine Sonam Pen Needle) #400 ea 01/22/23 [Rx Last Taken Unknown] flash glucose sensor (FreeStyle Garett 2 Sensor kit) #1 ea 02/19/23 [Rx Last Taken Unknown] linaclotide 72 mcg capsule (Linzess) 72 mcg PO DAILY 02/22/23 [History Last Taken Unknown] montelukast 10 mg tablet (Singulair) 10 mg PO DAILY 02/22/23 [History Last Taken Unknown] Allergy/AdvReac Type Severity Reaction Status Date / Time doxycycline Allergy Intermediate GI problems Verified 12/11/22 11:43 clindamycin Allergy Rash Verified 10/16/22 14:10 insulin detemir Allergy Rash Verified 10/16/22 14:10 [From Levemir U-100 Insulin] ciprofloxacin AdvReac Mild Upset Verified 10/16/22 14:10 Stomach amoxicillin trihydrate AdvReac Nausea Verified 10/16/22 14:10 [From Augmentin] morphine AdvReac Nausea Verified 10/16/22 14:10 potassium clavulanate AdvReac Nausea Verified 10/16/22 14:10 [From Augmentin] Family History Father Hypertension Colon cancer Cancer lung Mother Hypertension Heart disease Diabetes Surgical History History of cholecystectomy History of knee replacement procedure of left knee History of laminectomy History of right and left heart catheterization (05/04/20) Social History Smoking Status: Former smoker how long ago did patient quit smokin years ago alcohol intake: never substance use type: does not use caffeine: Yes Type: coffee Number of servings: 2 ROS ROS Narrative Admission Review of Systems: CONSTITUTIONAL: No weight loss, fever, chills, + weakness or fatigue. HEENT: + Congestion, rhinorrhea. Eyes: No visual loss, blurred vision, double vision or yellow sclerae. Ears, Nose, Throat: No hearing loss, sneezing. SKIN: No rash or itching, lesions, wounds. CARDIOVASCULAR: No chest pain, chest pressure or chest discomfort, palpitations, edema, orthopnea, syncopal events. RESPIRATORY: + shortness of breath, cough without marked sputum, wheezing. No hemoptysis. GASTROINTESTINAL: + anorexia, nausea without vomiting, No diarrhea, abdominal pain, melena, BRBPR. GENITOURINARY: No dysuria, frequency, urgency or retention. NEUROLOGICAL: No headache, dizziness, syncope, paralysis, ataxia, numbness or tingling in the extremities, focal weakness, change in bowel or bladder control, seizure. MUSCULOSKELETAL: + muscle, back pain, joint pain or stiffness. HEMATOLOGIC: + anemia, bleeding or bruising. LYMPHATICS: No enlarged nodes. No history of splenectomy. PSYCHIATRIC: No history of depression or anxiety. ENDOCRINOLOGIC: No reports of sweating, cold or heat intolerance. No polyuria or polydipsia. ALLERGIES: + history of asthma, rhinitis. Vital Signs Vital Signs Vital Signs: 02/22/23 00:01 02/22/23 00:03 02/22/23 00:05 Temperature 97 F L 97 F L Temperature Source Temporal Temporal Pulse Rate 63 60 Respiratory Rate 21 H 20 H Respiratory Effort Short of Breath Labored Respiratory Depth Normal Respiratory Pattern Tachypnea Blood Pressure 113/48 L 113/48 L Blood Pressure Mean 69 69 Pulse Ox 95 95 Oxygen Delivery Method Nasal Cannula Nasal Cannula Nasal Cannula Oxygen Flow Rate (L/min) 4 4 4 02/22/23 00:34 02/22/23 01:20 Temperature 97.8 F Temperature Source Temporal Pulse Rate 74 75 Respiratory Rate 16 24 H Respiratory Effort Respiratory Depth Respiratory Pattern Blood Pressure 136/56 H Blood Pressure Mean 82 Pulse Ox 100 Oxygen Delivery Method Nasal Cannula Oxygen Flow Rate (L/min) 3 Weight Weight: 212 lb 4.882 oz Body Mass Index (BMI) 42.8 Physical Exam Narrative Physical Examination: General: Awake, alert, oriented x 3 and cooperative, laying in the ED bed, fatigued, mildly hoarse voice, some coughing during evaluation. Skin: Normal color, normal turgor, no icterus, no cyanosis except for bilateral lower extremity chronic venous stasis skin changes. HEENT: AT/NC, EOMI, PERRLA, mildly dry MM, no carotid bruits or JVD noted; however thickened neck makes evaluation difficult. Lungs: Diminished, greater bases, no evidence of any respiratory distress, mildly rhonchorous with occasional wheezing, no rales. Heart: Currently regular rate and rhythm; no gallop, rub audible. Abdomen: Soft, morbidly obese, NTTP, no obvious distention or HSM however habitus makes evaluation difficult, distant BS. Extremities: No cyanosis, no clubbing, bilateral lower extremity chronic venous stasis skin changes, very minimal nonpitting edema present Neurological: Patient awake, alert, oriented x 3, cognitive function intact; pupils equally reactive to light and accommodation, cranial nerves II-XII grossly normal, moving all 4 extremities, no focal deficits, strength moderately global decrease secondary to acute presentation complaints Psychiatric: Affect appears fatigued otherwise normal, no acute evidence of depressive or anxiety feelings. Results Lab / Micro Data Result Diagrams: 02/22/23 00:16 02/22/23 00:16 Labs: Laboratory Results - last 24 hr 02/22/23 00:16: WBC 11.4 H, RBC 3.47 L, Hgb 10.8 L, Hct 34.7 L, MCV 100.0 H, MCH 31.1, MCHC 31.1 L, RDW Std Deviation 52.8 H, RDW Coeff of Jazzmine 14.4, Plt Count 329, MPV 9.9, Immature Gran % (Auto) 4.700 H, Neut % (Auto) 87.0 H, Lymph % (Auto) 3.2 L, Shelby % (Auto) 4.7, Eos % (Auto) 0.0, Baso % (Auto) 0.4, Absolute Neuts (auto) 9.9 H, Absolute Lymphs (auto) 0.36 L, Nucleated RBC % 0, Differential Comment SCANNED 02/22/23 00:16: Sodium 135 L, Potassium 5.8 H, Chloride 105, Carbon Dioxide 19.0 L, Anion Gap 11, BUN 127 H*, Creatinine 4.19 H, Estim Creat Clear Calc 18.45, Est GFR (MDRD) Af Amer 13 L, Est GFR (MDRD) Non-Af 11 L, BUN/Creatinine Ratio 30.3 H, Glucose 232 H, Calcium 9.7, Magnesium 2.2 02/22/23 00:16: B-Natriuretic Peptide 567.8 H Radiology Impression Chest X-Ray 02/22/23 00:15 IMPRESSION: 1. Mild diffuse interstitial opacities, right greater the left, which may represent asymmetric edema or atypical pneumonia. 2. Stable cardiomegaly. Electronically Signed: Andry Evans, at 0:55 EDT , Assessment & Plan Assessment/Plan (1) COPD exacerbation: PLAN: Plan The patient is a 72 y/o F w/ PMHx: Morbid Obesity, Chronic COPD/Asthma w/ Chronic Hypoxic Respiratory Failure (3-4L NC) complicated by Pulmonary HTN, Diabetes mellitus type II, CKD stage III unclear subtype, PAF, CONCEPCION noncompliant with CPAP, Sarcoidosis, BL LE venous insufficiency/PVD who presents to the [facility] ED on 02/22/23 with history of persistent cough and dyspnea worsening over the last week with recent ill contacts specifically her daughter and granddaughter with acute upper respiratory type illness with no specific fevers or chills but despite wearing her chronic supplementation no marked improvement prompting eventual ED evaluation. #1. Acute on chronic COPD/asthma exacerbation w/ Chronic hypoxic respiratory failure potentially secondary to an Acute viral syndrome w/ Acute Bilateral Atypical Pneumonia given recent ill contact, lower suspicion CHF Exacerbation, new onset: Will admit to [facility] telemetry given hyperkalemia concurrently, maintain on oxygen with wean as tolerated to home oxygen supplementation, continue ATC duonebs, PRN albuterol, will maintain on IV rocephin/azithromycin with de-escalation of abx if appears more viral mediated especially given recent ill contacts, continue IV methylprednisolone, HOB, IS parameters, will obtain sputum culture as well as respiratory viral panel pending per ED in addition to planned COVID PCR to be cautious, procalcitonin requested. BNP of note is elevated more so than previously ever before with last Echocardiogram 04/11/2020 with normal LV systolic function, EF 60%, stage I diastolic dysfunction, PASP 38 mmHg. Given acute kidney injury would prefer to continue to hydrate judiciously and hold nephrotoxic regimen however to be cautious we will obtain repeat echo. #2. Acute kidney injury on CKD stage III unclear subtype: Admission BUN/Cr 127/4.19, prior baseline creatinine noted to be primarily 1.6-2.1, most recent lab value in [facility] noted 10/06/2022 creatinine 2.12. Will hydrate, hold nephrotoxic medications and closely trend CMP. Will obtain FeNa, urinalysis and renal ultrasound assessment. Will consult patient [employer] Dr. Ribeiro. #3. Hyperkalemia: Likely related with KARLA as noted, EKG without acutely peaked T waves, admission potassium 5.8, does not appear to be hemolyzed, will maintain on telemetry monitoring, initiate hyperkalemia treatment with repeat close serial BMP trending and further treatment as needed. #4. Bilateral lower extremity edema, underlying venous insufficiency/PVD: Patient reports chronic swelling however it is minimal and not markedly pitting, given planned hydration however we will place snug Michi wraps with elevation. #5. PAF: We will continue patient on diltiazem, not chronically anticoagulated per current list. #6. Hypertension: Continue home regimen including diltiazem regimen, holding nephrotoxic regimen otherwise, PRN hydralazine. #7. Hyperlipidemia: Temporarily holding patient home fenofibrate regimen. Not on statin therapy per current list. #8. Diabetes mellitus type II: Hold oral home regimen, continue home insulin regimen, ADA diet, accu checks w/ ISS. #9. Chronic macrocytic anemia: Admission hemoglobin 10.8, baseline primarily 11 range, will continue to trend, continue supplementation. #10. Former tobacco use: Encourage continued tobacco cessation. #11. Morbid Obesity: Weight loss and lifestyle changes encouraged. #12. GERD: We will continue home PPI. #13. DVT prophylaxis: Heparin. #14. CODE status: Patient HCPOA is her who is present and living will is currently in place. Discussed CODE status at length including difference between FULL code, DNR-CCA and DNR-CC status. Following discussions about the differences in these status, requested Full Code status. Advanced Care Planning Face to Face Time: 16 minutes. Admission Evaluation Time spent evaluating chart, patient history, patient evaluation, care planning and discussion with specialists: 75 minutes. Charges/Coding Visit Charges Inpatient E&M: 08935 Init Hosp L3 Procedures Hospitalists Procedures: 64475 Advncd Care Plan 30 Min
[2023-02-22] MEDS: Ceftriaxone 1 GM/50 ML BAG IV ×2 (01:54→22:07)
--- NOTE | 2023-02-22 02:39 | ECHOD_ITS ---
Reason For Study: Dyspnea/SOB Procedure This was a 2D Doppler, Color Flow transthoracic echocardiogram. Technically difficult study due to patients body habitus. Per echo order: no contrast as indicated. Exam performed portable in patient room. Left Ventricle Normal LV size. Left ventricular systolic function is normal. The estimated ejection fraction is 55 %. Stage 1 diastolic dysfunction. No regional wall motion abnormalities noted. Right Ventricle Normal RV size. Normal systolic function. Atria The left atrium is moderately enlarged. Normal right atrium. Tricuspid Valve Normal tricuspid valve. Mild tricuspid valve insufficiency. Pulmonary artery systolic pressure is 35 mmHg. Aortic Valve The aortic valve is not well visualized. Pulmonic Valve Normal pulmonic valve. Great Vessels Normal aortic root. The pulmonary artery is normal size. Normal inferior vena cava. Pericardium/Pleural No pericardial effusion. MMode/2D Measurements & Calculations LVIDd: 5.1 cm IVSd: 1.2 cm LA dimension: 4.6 cm LVIDs: 3.6 cm LVPWd: 1.1 cm RVDd: 3.6 cm FS: 30.4 % LAV(MOD-bp): 67.4 ml LA A4 area: 25.0 cm2 RA A4 area: 18.6 cm2 LAV(MOD-bp) Indexed: 33.2 ml/m2 LAV(MOD-sp2): 45.6 ml LAV(MOD-sp4): 81.8 ml Time Measurements MV dec time: 0.16 sec Doppler Measurements & Calculations MV E max kam: 111.0 cm/sec Lat Peak E' Kam: 8.5 cm/sec Med Peak E' Kam: 12.1 cm/sec MV A max kam: 113.0 cm/sec E/E' lat: 13.1 E/E' med: 9.2 MV E/A: 0.98 MV V2 max: 124.5 cm/sec MV P1/2t max kam: 106.1 cm/sec Ao V2 max: 195.6 cm/sec MV max P.2 mmHg MV P1/2t: 52.9 msec Ao max P.3 mmHg MV V2 mean: 73.5 cm/sec MV mean P.5 mmHg MV dec slope: 587.2 cm/sec2 MV V2 VTI: 26.5 cm MVA(P1/2t): 4.2 cm2 LV V1 max: 135.5 cm/sec MR max kam: 512.2 cm/sec PA V2 max: 115.2 cm/sec LV V1 max P.4 mmHg MR max P.9 mmHg PA V2 mean: 74.6 cm/sec TR max kam: 279.9 cm/sec TR max P.3 mmHg ECHO/Echo Complete Interpretation Summary Normal LV size. Left ventricular systolic function is normal. The estimated ejection fraction is 55 %. Stage 1 diastolic dysfunction. Mild tricuspid valve insufficiency. Pulmonary artery systolic pressure is 35 mmHg. Ordering Physician: Jessica Christianson Referring Physician: Veronica Oquendo M.D. Performed By: Dre Merritt RCS
[2023-02-22 02:44] LABS: Procalcitonin 0.34 ng/mL (0.00-0.09)
[2023-02-22 03:32] LABS: Bacteria 0 SEEN /hpf (None Seen); Mucous, Urine 0 SEEN /hpf (<or=2+)
[2023-02-22 03:35] LABS: Color, Urine Yellow (Yellow); Glucose, Dipstick Normal (Normal); Ketone-Dipstick Negative (Negative); Leukocyte Esterase-Dipstick 25 /ul (Negative); Nitrite-Dipstick Negative (Negative); Occult Blood-Urine 10 /ul (Negative); Protein-Dipstick 15 mg/dl (Negative); Specific Gravity, Urine 1.015 (1.002-1.030); Urine Bilirubin Dipstick Negative (Negative); Urine Clarity Clear (Clear); Urine Urobilinogen Normal (Normal)
[2023-02-22] MEDS: Insulin Lispro 10 UNIT in Syringe 0 ML 6 UNIT IV (03:37)
[2023-02-22] MEDS: Dextrose 50%-Water 25 GM/50 ML DISP.SYRIN IV (03:38)
[2023-02-22] MEDS: 0.9% Normal Saline 1,000 ML 100 ML IV (03:40)
[2023-02-22] MEDS: Sodium Polystyrene Sulfonate 15 GM/60 ML UDC PO (03:41)
[2023-02-22 03:42] LABS: Red Blood Cells-Urine 0-5 SEEN /hpf (0-5); Squamous Epithelial Cells - UA 0-5 SEEN /hpf (5-10); White Blood Cells 0-5 SEEN /hpf (0-5)
[2023-02-22 03:44] LABS: Urine Sodium 44 mmol/L (Not Establ.)
[2023-02-22] MEDS: Albuterol *CONC* 2.5mg/0.5mL VIAL.NEB. 10 MG INHALATION (03:48)
--- NOTE | 2023-02-22 05:55 | US_ITS ---
STUDY: RENAL ULTRASOUND - COMPLETE REASON FOR EXAM: Female, 72 years old patient with acute renal insufficiency. History of atrophic LEFT kidney. TECHNIQUE: Ultrasound evaluation of the kidneys was performed with real-time and static burdick-scale imaging. COMPARISON: CT of the abdomen and pelvis dated July 05, 2021.. FINDINGS: RIGHT KIDNEY: Normal location of the right kidney, which is normal in size. The right kidney measures 12.5 x 5.9 x 6.1 cm. There is echogenic renal cortex of the right kidney. The renal cortex measures 2.0 cm. There is no right renal mass or cyst. There are no right renal calculi. There is no right hydronephrosis. DISTAL RIGHT URETER: There is non-visualization of the distal right ureter. There is no demonstrated right ureterovesical junction calculus. There is no demonstrated right ureteral jet. LEFT KIDNEY: Normal location of the left kidney, which is small in size. The left kidney measures 9.1 x 3.4 x 2.9 cm. There is diffuse severe thinning of the renal cortex. The renal cortex measures 0.7 cm. There is left renal cyst measuring 1.8 x 1.6 x 1.6 cm. There are no left renal calculi. There is no left hydronephrosis. DISTAL LEFT URETER: There is non-visualization of the distal left ureter. There is no demonstrated left ureterovesical junction calculus. There is no demonstrated left ureteral jet. AORTA: There is obscuration of the abdominal aorta by overlying bowel gas I.V.C.: The IVC is obscured. BLADDER: The distended urinary bladder has a volume of 88.7 ml. There is a normal wall thickness of the distended urinary bladder. There is no demonstrated mass within the urinary bladder. There are no demonstrated bladder calculi. US/Kidney and Bladder IMPRESSION: 1. Severely atrophic left kidney. 2. Sequela of chronic renal insufficiency and/or renal medical disease. Electronically Signed: Renetta Oliveira MD at 9:45 EDT ,
[2023-02-22] MEDS: 0.9% Saline Lock 10 ML Syringe IV ×3 (06:19→22:02)
[2023-02-22] MEDS: Insulin Lispro 100 UNIT/ML INSULN.PEN SC ×4 (06:20→21:59)
[2023-02-22 06:50] LABS: Bedside Glucose 197 mg/dL (74-106)
[2023-02-22 06:50] LABS: Bedside Glucose 247 mg/dL (74-106)
[2023-02-22 06:54] LABS: Absolute Lymphocyte Count 0.15 X10^3/uL (0.83-4.51); Absolute Neutrophil Count 7.8 X10^3/uL (2.0-7.7); Basophil# 0.02 X10^3/uL; Basophil% 0.2 % (0-1); Hematocrit 30.7 % (37-47); Hemoglobin 9.5 g/dL (12.0-15.0); Lymphocyte # 0.15 X10^3/ul (0.83-4.51); Lymphocyte % 1.9 % (19-41); Mean Corp Hgb Conc 30.9 g/dL (32-36); Mean Corpuscular Hgb 30.9 pg (27.0-32.0); Mean Platelet Vol. 9.4 fl (6.2-12.0); Monocyte# 0.04 X10^3/uL; Monocyte% 0.5 % (0-10); NRBC Flagged by Analyzer 0 % (0-5); Neutrophil # 7.75 X10^3/uL (2.7-7.7); POSITIVE DIFFERENTIAL YES; Platelet Count 218 K/mm3 (150-450); Red Blood Count 3.07 M/mm3 (4.2-5.4); White Blood Count 8.1 K/mm3 (4.4-11.0)
[2023-02-22 07:29] LABS: AST(SGOT) 29 U/L (15-37); Alanine Aminotransfer ALT/SGPT 40 U/L (13-56); Albumin, Serum 3.1 g/dL (3.2-5.0); Alkaline Phosphatase 33 U/L (45-117); Anion Gap 7 (5-15); BUN 113 mg/dL (7-18); BUN/Creat Ratio 29.6 RATIO (10-20); Calcium,Total 9.4 mg/dL (8.5-10.1); Chloride 108 mmol/L (98-107); Creatinine, Serum 3.82 mg/dL (0.55-1.02); EST Glomerular Filtration Rate 12 mL/min (>60); Est Glom Filt Rate - Afr Amer 15 mL/min (>60); Estimated Creatinine Clearance 23.96 ml/min; Glucose 205 mg/dL (74-106); Potassium 5.3 mmol/L (3.5-5.1); Protein, Total 6.1 g/dL (6.4-8.2); Sodium Level 137 mmol/L (136-145)
[2023-02-22 07:59] LABS: Differential Indicated SCAN CRITERIA MET
[2023-02-22 08:00] LABS: Toxic Granulation 1+
[2023-02-22] MEDS: Menthol/Lanolin/Calamine/Znox 113 GM Tube 1 APPLIC TOPICAL ×2 (08:37→22:00)
[2023-02-22] MEDS: Heparin Injection (Vial) 5,000 UNIT/ML VIAL 5000 UNIT SC (08:38)
[2023-02-22] MEDS: Aspirin E.C. 81 MG Tablet PO (08:38)
[2023-02-22] MEDS: Loratadine 10 MG Tablet PO (08:38)
[2023-02-22] MEDS: Montelukast 10 MG Tablet PO (08:42)
[2023-02-22] MEDS: Pantoprazole Sodium 40 MG Tablet PO ×2 (08:42→22:15)
[2023-02-22] MEDS: Febuxostat 40 MG TABLET PO (08:42)
--- NOTE | 2023-02-22 09:22 | PN.HOSP_ITS ---
Reason for Visit Reason for Visit: Diagnoses Chronic obstructive pulmonary disease with (acute) exacerbation (02/22/23) Follow-up for COPD exacerbation, KARLA on CKD Subjective Subjective Patient shortness of breath is better than admission. She also had mild chest tightness/congestion which she feels better. Initially dry cough but now able to bring up some phlegm. Objective Data Objective Data Vital Signs: Vital Signs Temp Pulse Resp BP Pulse Ox O2 Del Method O2 Flow Rate 97.9 F 84 18 116/54 L 100 Nasal Cannula 4 02/22/23 08:52 02/22/23 08:52 02/22/23 08:52 02/22/23 08:52 02/22/23 08:52 02/22/23 08:52 02/22/23 08:52 Oxygen Flow Rate (L/min) 4 Oxygen Delivery Method Nasal Cannula Weight: 251 lb 5.231 oz Body Mass Index (BMI) 54.2 Intake & Output: Intake and Output for Last 24 Hours 02/20/23 02/21/23 02/22/23 23:59 23:59 23:59 Intake Total 455 / 455 Output Total 200 / 200 Balance 255 / 255 Lab / Micro Data Result Diagrams: 02/22/23 06:40 02/22/23 06:40 Labs: Laboratory Results - last 24 hr 02/22/23 00:16: WBC 11.4 H, RBC 3.47 L, Hgb 10.8 L, Hct 34.7 L, MCV 100.0 H, MCH 31.1, MCHC 31.1 L, RDW Std Deviation 52.8 H, RDW Coeff of Jazzmine 14.4, Plt Count 329, MPV 9.9, Immature Gran % (Auto) 4.700 H, Neut % (Auto) 87.0 H, Lymph % (Auto) 3.2 L, [place] % (Auto) 4.7, Eos % (Auto) 0.0, Baso % (Auto) 0.4, Absolute Neuts (auto) 9.9 H, Absolute Lymphs (auto) 0.36 L, Nucleated RBC % 0, Differential Comment SCANNED 02/22/23 00:16: Sodium 135 L, Potassium 5.8 H, Chloride 105, Carbon Dioxide 19.0 L, Anion Gap 11, BUN 127 H*, Creatinine 4.19 H, Estim Creat Clear Calc 18.45, Est GFR (MDRD) Af Amer 13 L, Est GFR (MDRD) Non-Af 11 L, BUN/Creatinine Ratio 30.3 H, Glucose 232 H, Calcium 9.7, Magnesium 2.2 02/22/23 00:16: B-Natriuretic Peptide 567.8 H 02/22/23 00:28: COVID-19 (YAIR) Not Detected 02/22/23 02:00: Procalcitonin 0.34 H 02/22/23 03:30: POC Glucose 247 H 02/22/23 06:18: POC Glucose 197 H 02/22/23 06:40: WBC 8.1, RBC 3.07 L, Hgb 9.5 L, Hct 30.7 L, MCV 100.0 H, MCH 30.9, MCHC 30.9 L, RDW Std Deviation 51.0 H, RDW Coeff of Jazzmine 14.0, Plt Count 218, MPV 9.4, Immature Gran % (Auto) 1.400 H, Neut % (Auto) 96.0 H, Lymph % (Auto) 1.9 L, [place] % (Auto) 0.5, Eos % (Auto) 0.0, Baso % (Auto) 0.2, Absolute Neuts (auto) 7.8 H, Absolute Lymphs (auto) 0.15 L, Nucleated RBC % 0, Toxic Granulation 1+ 02/22/23 06:40: Sodium 137, Potassium 5.3 H, Chloride 108 H, Carbon Dioxide 22.0, Anion Gap 7, BUN 113 H*, Creatinine 3.82 H, Estim Creat Clear Calc 23.96, Est GFR (MDRD) Af Amer 15 L, Est GFR (MDRD) Non-Af 12 L, BUN/Creatinine Ratio 29.6 H, Glucose 205 H, Calcium 9.4, Total Bilirubin 0.40, AST 29, ALT 40, Alkaline Phosphatase 33 L, Total Protein 6.1 L, Albumin 3.1 L, Globulin 3.0, Albumin/Globulin Ratio 1.0 02/22/23 : Urine Color Yellow, Urine Clarity Clear, Urine pH 6.0, Ur Specific [place] 1.015, Urine Protein 15 H, Urine Glucose (UA) Normal, Urine Ketones Negative, Urine Occult Blood 10 H, Urine Nitrite Negative, Urine Bilirubin Negative, Urine Urobilinogen Normal, Ur Leukocyte Esterase 25 H, Urine RBC 0-5 SEEN, Urine WBC 0-5 SEEN, Ur Squamous Epith Cells 0-5 SEEN, Urine Bacteria 0 SEEN, Urine Mucus 0 SEEN 02/22/23 : Urine Creatinine 56.90 02/22/23 : Ur Random Sodium 44 Micro: Microbiology 02/22/23 Unknown Urine, Clean Catch Legionella Antigen - Final 02/22/23 Unknown Urine, Clean Catch Streptococcus pneumoniae Antigen (M - Final 02/22/23 00:28 Mucosa - Nose Respiratory Panel (PCR) - Final Radiography Diagnostic Testing: Radiology Impression Chest X-Ray 02/22/23 00:15 IMPRESSION: 1. Mild diffuse interstitial opacities, right greater the left, which may represent asymmetric edema or atypical pneumonia. 2. Stable cardiomegaly. Electronically Signed: Andry Evans DO at 0:55 EDT , Physical Exam Narrative Physical exam General: Alert, Oriented x3, Cooperative, BMI 54.4 kg/m?, morbid obesity HEENT: Atraumatic, PERRLA, EOMI, Normocephalic Oral: Oral mucosa moist. No Gingival or Mucosal Lesions/ Ulcerations Neck: Supple, No JVD, Negative Carotid Bruits Lungs: Air entry diminished in bilateral lung bases. Bilateral expiratory rhonchi and wheezing. Cardiovascular: Regular rate, Regular Rhythm, Normal S1, Normal S2, No murmurs Abdomen: Bowel Sounds Present, Soft, Non Tender, Non-Distended : No renal angle tenderness. No suprapubic tenderness. Extremities: Mild bilateral ankle edema, Michi wrap bandage. Capillary Refill Less than 3 Seconds Skin: No rashes, No breakdown Musculoskeletal: No Tenderness to Palpation of Joints or Extremities. ROM restricted. Neurological: Cranial nerves II-XII grossly intact, DTR 2+/4 and Symmetrical Psych/Mental Status: Flat affect. Assessment & Plan Assessment/Plan (1) COPD exacerbation: PLAN: Plan The patient is a 72 y/o F with multiple comorbidities including COPD on baseline 3 to 4 L of oxygen 24/ [facility], worsening of cough for about 1 week. No fever or chills. Her daughter and granddaughter was sick prior to beginning of her symptoms. #1. Acute on chronic COPD/asthma exacerbation with chronic hypoxic respiratory failure probably due to atypical viral pneumonia might be bacterial superinfection: In ED, patient was on 4 L of oxygen, but tachypneic labored breathing. Chest x-ray image reviewed shows mild diffuse interstitial opacities, right greater than left with slight worsening of lung parenchyma from previous chest x-ray of May 2022 with technical limitation. Procalcitonin 0.34. BNP elevated 567. Urinary antigens and respiratory panel are negative. Patient is empirically on IV ceftriaxone and Zithromax and is continued. Last Echocardiogram 04/11/2020 with normal LV systolic function, EF 60%, stage I diastolic dysfunction, PASP 38 mmHg. I did not think patient has CHF exacerbation but I will discontinue IV fluid. #2. Acute kidney injury on CKD stage IIIb: Admission BUN/Cr 127/4.19, prior baseline creatinine noted to be primarily 1.6-2.1, most recent lab in 10/06/2022 creatinine 2.12. [place] neph[facility] is consulted. IV fluid is discontinued. Urine random sodium 44, creatinine 56. UA LE 25, WBC 0-5 cells nitrite negative and patient does not have symptoms of acute low intact symptoms including dysuria therefore UTI ruled out. #3. Hyperkalemia: Likely related with KARLA as noted, EKG without acutely peaked T waves, admission potassium 5.8, telemetry monitoring. Repeat potassium is 5.3. I think potassium is between 4.8-5.3, her baseline. #4. Bilateral lower extremity edema, underlying venous insufficiency/PVD: Patient states she regularly takes diuretic and she has lost mainly fluid weight recently last 3 months. Hold for Lasix but monitor intake and output. #5. PAF: continue patient on diltiazem, not chronically anticoagulated per current list. #6. Hypertension: Continue home regimen including diltiazem regimen, holding nephrotoxic regimen otherwise, PRN hydralazine. #7. Hyperlipidemia: Temporarily holding patient home fenofibrate regimen. Not on statin therapy per current list. #8. Diabetes mellitus type II: Hold oral home regimen, continue home insulin regimen, ADA diet, accu checks with Humalog sliding scale coverage #9. Chronic macrocytic anemia: Admission hemoglobin 10.8, baseline primarily 11 range, mild decreased 9.5. On baseline #10. Former tobacco use: Encourage continued tobacco cessation. #11. Morbid Obesity: Weight loss and lifestyle changes encouraged. #12. GERD: We will continue home PPI. #13. DVT prophylaxis: Heparin. Total time of the visit including total time spent in counseling or coordination of care, (more than 50% of the total time, spent in obtaining medical information from nurses and other ancillary care providers,explaining to the patient about labs, imaging, diagnosis and management of active complex medical conditions, medical chart review, clinical update given to patient's near bedside, discussion with data communications software consultant, review of labs and imaging is 50 minutes. #14. CODE status: Patient JUAN CARLOS is her who is present and living will is currently in place. Discussed CODE status at length including difference between FULL code, DNR-CCA and DNR-CC status. Following discussions about the differences in these status, requested Full Code status. Microbiology Past 72 Hours 02/22/23 Unknown Urine, Clean Catch Legionella Antigen - Final 02/22/23 Unknown Urine, Clean Catch Streptococcus pneumoniae Antigen (M - Final 02/22/23 00:28 Mucosa - Nose Respiratory Panel (PCR) - Final Laboratory Results 02/22/23 00:16: WBC 11.4 H, RBC 3.47 L, Hgb 10.8 L, Hct 34.7 L, MCV 100.0 H, MCH 31.1, MCHC 31.1 L, RDW Std Deviation 52.8 H, RDW Coeff of Jazzmine 14.4, Plt Count 329, MPV 9.9, Immature Gran % (Auto) 4.700 H, Neut % (Auto) 87.0 H, Lymph % (Auto) 3.2 L, [place] % (Auto) 4.7, Eos % (Auto) 0.0, Baso % (Auto) 0.4, Absolute Neuts (auto) 9.9 H, Absolute Lymphs (auto) 0.36 L, Nucleated RBC % 0, Differ ential Comment SCANNED 02/22/23 00:16: Sodium 135 L, Potassium 5.8 H, Chloride 105, Carbon Dioxide 19.0 L, Anion Gap 11, BUN 127 H*, Creatinine 4.19 H, Estim Creat Clear Calc 18.45, Est GFR (MDRD) Af Amer 13 L, Est GFR (MDRD) Non-Af 11 L, BUN/Creatinine Ratio 30.3 H, Glucose 232 H, Calcium 9.7, Magnesium 2.2 02/22/23 00:16: B-Natriuretic Peptide 567.8 H 02/22/23 00:28: COVID-19 (YAIR) Not Detected 02/22/23 02:00: Procalcitonin 0.34 H 02/22/23 03:30: POC Glucose 247 H 02/22/23 06:18: POC Glucose 197 H 02/22/23 06:40: WBC 8.1, RBC 3.07 L, Hgb 9.5 L, Hct 30.7 L, MCV 100.0 H, MCH 30.9, MCHC 30.9 L, RDW Std Deviation 51.0 H, RDW Coeff of Jazzmine 14.0, Plt Count 218, MPV 9.4, Immature Gran % (Auto) 1.400 H, Neut % (Auto) 96.0 H, Lymph % (Auto) 1.9 L, [place] % (Auto) 0.5, Eos % (Auto) 0.0, Baso % (Auto) 0.2, Absolute Neuts (auto) 7.8 H, Absolute Lymphs (auto) 0.15 L, Nucleated RBC % 0, Toxic Granulation 1+ 02/22/23 06:40: Sodium 137, Potassium 5.3 H, Chloride 108 H, Carbon Dioxide 22.0, Anion Gap 7, BUN 113 H*, Creatinine 3.82 H, Estim Creat Clear Calc 23.96, Est GFR (MDRD) Af Amer 15 L, Est GFR (MDRD) Non-Af 12 L, BUN/Creatinine Ratio 29.6 H, Glucose 205 H, Calcium 9.4, Total Bilirubin 0.40, AST 29, ALT 40, Alkaline Phosphatase 33 L, Total Protein 6.1 L, Albumin 3.1 L, Globulin 3.0, Albumin/Globulin Ratio 1.0 02/22/23 : Urine Color Yellow, Urine Clarity Clear, Urine pH 6.0, Ur Specific [place] 1.015, Urine Protein 15 H, Urine Glucose (UA) Normal, Urine Ketones Negative, Urine Occult Blood 10 H, Urine Nitrite Negative, Urine Bilirubin Negative, Urine Urobilinogen Normal, Ur Leukocyte Esterase 25 H, Urine RBC 0-5 SEEN, Urine WBC 0-5 SEEN, Ur Squamous Epith Cells 0-5 SEEN, Urine Bacteria 0 SEEN, Urine Mucus 0 SEEN 02/22/23 : Urine Creatinine 56.90 02/22/23 : Ur Random Sodium 44 Charges/Coding Visit Charges Inpatient E&M: 43491 Subs Hosp L3
[2023-02-22] MEDS: Lidocaine 5% Patch 2 PATCH TOPICAL (10:50)
[2023-02-22] MEDS: Mirabegron 50 MG TAB.ER.24H PO (11:01)
[2023-02-22] MEDS: guaiFENesin/D-Methorphan TAB.SR.12H 1 TABLET PO ×2 (11:01→22:15)
[2023-02-22 12:05] LABS: Bedside Glucose 338 mg/dL (74-106)
--- NOTE | 2023-02-22 16:43 | PCM.CONS.R ---
Assessment & Plan Assessment/Plan (1) Acute kidney injury superimposed on chronic kidney disease: (2) COPD exacerbation: (3) Essential (primary) hypertension: PLAN: Plan Impression/Plan: The patient is a 73-year-old woman with past history of type 2 diabetes mellitus, hypertension, COPD, pulmonary hypertension, paroxysmal atrial fibrillation, CONCEPCION, and morbid obesity. The patient presents to the hospital on 02/21/2023 with dyspnea, and she is being treated for COPD exacerbation. Nephrology is following for acute kidney injury on chronic kidney disease. Acute kidney injury on chronic kidney disease stage IV. Baseline serum creatinine is 2.00 to 2.20 mg/dL. 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 KARLA is likely due to decreased effective blood volume from decreased oral intake made worse by concurrent use of diuretic and ARB. Renal function has improved since admission. Serum creatinine has decreased from 4.19 mg/dL down to 3.82 mg/dL in 6 hours. Agree with holding ARB and diuretic. Continue to encourage oral solute/fluid intake. No need for dialysis today. We will recheck renal function, volume status, acid-base status and electrolytes tomorrow. If renal function fails to improve further, I will check renal ultrasound. Current medications are reviewed and are appropriate dose for her renal function. Hyperkalemia. The patient presented with potassium level 5.8 mmol/L. Potassium has improved to 5.3 mmol/L earlier this morning. Hyperkalemia is likely due to KARLA on CKD in the setting of concurrent use of ARB. Agree with holding ARB. Recheck potassium level tomorrow. Metabolic acidosis. Likely due to KARLA on CKD. The patient has also been taking MiraLAX for constipation. She reports looser bowel movement for 2 to 3 days prior to admission as well. Recheck serum bicarbonate level tomorrow. There is no need to start sodium bicarbonate supplementation at this point. Acute hypoxic respiratory failure secondary to COPD exacerbation The patient is being treated for COPD exacerbation with bronchodilator and corticosteroid. She is also being covered for lower respiratory tract infection with antimicrobial. Management as per hospital medicine service. HPI Consult Data Date of Consult: 02/22/23 HPI Narrative Reason for Consultation: Acute kidney injury on chronic kidney disease HPI Narrative: The patient is a 73-year-old woman with past history of type 2 diabetes mellitus, hypertension, COPD, pulmonary hypertension, paroxysmal atrial fibrillation, CONCEPCION, and morbid obesity. The patient presents to the hospital on 02/21/2023 with dyspnea, and she is being treated for COPD exacerbation. Nephrology was asked the patient because of KARLA on CKD. The patient is known to me as I am her primary creative coordinator. She has chronic kidney disease stage chronic kidney stage G4/A1 secondary to diabetic kidney disease with baseline serum creatinine of 2.00 to 2.30 mg/dL. I last saw her in the office in September 2022 and she is scheduled to see me again next month for follow-up. The patient presents with serum creatinine of 4.19 mg/dL associated with hyperkalemia with potassium of 5.8 mmol/L. The patient reports poor oral intake for at least 2 weeks prior to admission. She has continued to take all of her prescribed medication as before. Prior to admission, the patient had been on losartan and triamterene/hydrochlorothiazide for BP control. She denies lower urinary tract symptoms. She denies chest pain. Shortness of breath has improved since admission. She does have chronic lower extremity edema, but the severity of lower extremity edema is actually better than usual. [facility] Medical History Allergic rhinitis Asthma Chronic kidney disease Chronic obstructive lung disease Chronic renal failure, stage 3 (moderate) Compression fracture of L1 vertebra Constipation COVID-19 Debility Diabetes Diabetes mellitus type 2 in obese Dysphagia Essential (primary) hypertension GERD (gastroesophageal reflux disease) Gout Hyperlipidemia Hyperuricemia Intractable low back pain L1 vertebral fracture Leukocytosis Lung abscess Morbid obesity Muscle spasm Noncompliance with CPAP treatment Obesity Obesity (BMI 30-39.9) Obstructive sleep apnea On home O2 Osteopenia Osteoporosis Osteoporosis Overactive bladder Paroxysmal atrial fibrillation Pneumonia Right bundle branch block (RBBB) Sarcoidosis Secondary pulmonary arterial hypertension Type 2 diabetes mellitus Venous insufficiency of both lower extremities Home Medications fluticasone propionate 50 mcg/actuation nasal spray,suspension 2 spray NASAL DAILY PRN PRN Congestion 06/21/17 [History Last Taken 11/19/20] febuxostat 40 mg tablet (Uloric) 40 mg PO DAILY gout 12/30/18 [History Last Taken 11/19/20] fluticasone 500 mcg-salmeterol 50 mcg/dose blistr powdr for inhalation (Advair Diskus) 1 inh inhalation BID SOB 07/17/20 [History Last Taken 11/19/20] tramadol 50 mg tablet 50 mg PO Q8H PRN Pain Score 4-5 #9 tabs 12/05/20 [Rx Last Taken Unknown] acetaminophen 650 mg tablet,extended release (Tylenol Arthritis Pain) 650 mg PO Q12H 02/08/21 [History Last Taken Unknown] albuterol sulfate 90 mcg/actuation aerosol inhaler 2 puff inhalation Q4H PRN sob 02/08/21 [History Last Taken Unknown] aspirin 81 mg tablet,delayed release 81 mg PO DAILY #1 TAB 02/08/21 [Rx Last Taken Unknown] pantoprazole 40 mg tablet,delayed release 40 mg PO BID GERD 02/08/21 [History Last Taken Unknown] triamterene 37.5 mg-hydrochlorothiazide 25 mg tablet 1 tab PO DAILY 02/08/21 [History Last Taken Unknown] loratadine 10 mg tablet (Claritin) 10 mg PO DAILY Allergy 01/14/22 [History Last Taken Unknown] mirabegron 50 mg tablet,extended release 24 hr (Myrbetriq) 50 mg PO DAILY overactive bladder 01/14/22 [History Last Taken Unknown] tiotropium bromide 1.25 mcg/actuation mist for inhalation (Spiriva Respimat) 2 puff inhalation DAILY 01/14/22 [History Last Taken Unknown] fenofibrate nanocrystallized 145 mg tablet (Tricor) 145 mg PO DAILY Cholesterol 10/16/22 [History Last Taken Unknown] budesonide 0.5 mg/2 mL suspension for nebulization 0.5 mg inhalation BID 12/11/22 [History Last Taken Unknown] cholecalciferol (vitamin D3) 25 mcg (1,000 unit) tablet 5,000 unit PO DAILY supplement 12/11/22 [History Last Taken Unknown] insulin aspart U-100 100 unit/mL (3 mL) subcutaneous pen (Novolog FlexPen U-100 Insulin aspart) See Rx Instructions subcut TID 12/11/22 [History Last Taken Unknown] insulin glargine 100 unit/mL (3 mL) subcutaneous pen 38 unit subcut QPM DM 12/11/22 [History Last Taken Unknown] ipratropium 0.5 mg-albuterol 3 mg (2.5 mg base)/3 mL nebulization soln 3 ml inhalation BID PRN wheezing 12/11/22 [History Last Taken Unknown] levalbuterol HCl 0.63 mg/3 mL solution for nebulization 0.63 mg inhalation Q6H PRN wheeze 12/11/22 [History Last Taken Unknown] lidocaine 5 % topical patch 2 patch topical DAILY pain 12/11/22 [History Last Taken Unknown] losartan 100 mg tablet 100 mg PO DAILY HTN 12/11/22 [History Last Taken Unknown] pen needle, diabetic 32 gauge x 5/32 (BD Ultra-Fine Sonam Pen Needle) #400 ea 01/22/23 [Rx Last Taken Unknown] flash glucose sensor (FreeStyle Garett 2 Sensor kit) #1 ea 02/19/23 [Rx Last Taken Unknown] linaclotide 72 mcg capsule (Linzess) 72 mcg PO DAILY IBS 02/22/23 [History Last Taken Unknown] montelukast 10 mg tablet (Singulair) 10 mg PO DAILY 02/22/23 [History Last Taken Unknown] Allergy/AdvReac Type Severity Reaction Status Date / Time doxycycline Allergy Intermediate GI problems Verified 02/22/23 02:52 clindamycin Allergy Rash Verified 02/22/23 02:52 insulin detemir Allergy Rash Verified 02/22/23 02:52 [From Levemir U-100 Insulin] ciprofloxacin AdvReac Mild Upset Verified 02/22/23 02:52 Stomach amoxicillin trihydrate AdvReac Nausea Verified 02/22/23 02:52 [From Augmentin] morphine AdvReac Nausea Verified 02/22/23 02:52 potassium clavulanate AdvReac Nausea Verified 02/22/23 02:52 [From Augmentin] Family History Father Hypertension Colon cancer Cancer lung Mother Hypertension Heart disease Diabetes Surgical History History of cholecystectomy History of knee replacement procedure of left knee History of laminectomy History of right and left heart catheterization (05/04/20) Social History Smoking Status: Former smoker how long ago did patient quit smokin years ago alcohol intake: never substance use type: does not use caffeine: Yes Type: coffee Number of servings: 2 ROS ROS Narrative 09/08 ROS was done. ROS is otherwise noncontributory to what is already documented in HPI. Physical Exam Narrative General: Alert, Oriented x3, no apparent distress HEENT: Atraumatic, normocephalic, mucous membrane moist, PERRLA, EOMI, hearing is intact Neck: Supple, No JVD, Negative Carotid Bruits, trachea is midline Lungs:? Bilateral expiratory rhonchi and wheezing. Cardiovascular: Regular rate, Regular Rhythm, Normal S1, Normal S2, No murmurs Abdomen: Obese, normal bowel sound, soft, nontender, no guarding or rebound : No CVA tenderness.? No suprapubic tenderness. Extremities: 1+ bilateral ankle edema, Michi wrap bandage.? Capillary Refill Less than 3 Seconds Skin: No rashes, No breakdown, warm and dry Musculoskeletal: No Tenderness to Palpation of Joints or Extremities.? ROM restricted. Neurological: Cranial nerves II-XII grossly intact, DTR? 2+/4 and Symmetrical Psychiatric: Normal mood and affect. Lab / Micro Data Result Diagrams: 02/22/23 06:40 02/22/23 06:40 Labs: Laboratory Results - last 24 hr 02/22/23 00:16: WBC 11.4 H, RBC 3.47 L, Hgb 10.8 L, Hct 34.7 L, MCV 100.0 H, MCH 31.1, MCHC 31.1 L, RDW Std Deviation 52.8 H, RDW Coeff of Jazzmine 14.4, Plt Count 329, MPV 9.9, Immature Gran % (Auto) 4.700 H, Neut % (Auto) 87.0 H, Lymph % (Auto) 3.2 L, [place] % (Auto) 4.7, Eos % (Auto) 0.0, Baso % (Auto) 0.4, Absolute Neuts (auto) 9.9 H, Absolute Lymphs (auto) 0.36 L, Nucleated RBC % 0, Differential Comment SCANNED 02/22/23 00:16: Sodium 135 L, Potassium 5.8 H, Chloride 105, Carbon Dioxide 19.0 L, Anion Gap 11, BUN 127 H*, Creatinine 4.19 H, Estim Creat Clear Calc 18.45, Est GFR (MDRD) Af Amer 13 L, Est GFR (MDRD) Non-Af 11 L, BUN/Creatinine Ratio 30.3 H, Glucose 232 H, Calcium 9.7, Magnesium 2.2 02/22/23 00:16: B-Natriuretic Peptide 567.8 H 02/22/23 00:28: COVID-19 (YAIR) Not Detected 02/22/23 02:00: Procalcitonin 0.34 H 02/22/23 03:30: POC Glucose 247 H 02/22/23 06:18: POC Glucose 197 H 02/22/23 06:40: WBC 8.1, RBC 3.07 L, Hgb 9.5 L, Hct 30.7 L, MCV 100.0 H, MCH 30.9, MCHC 30.9 L, RDW Std Deviation 51.0 H, RDW Coeff of Jazzmine 14.0, Plt Count 218, MPV 9.4, Immature Gran % (Auto) 1.400 H, Neut % (Auto) 96.0 H, Lymph % (Auto) 1.9 L, [place] % (Auto) 0.5, Eos % (Auto) 0.0, Baso % (Auto) 0.2, Absolute Neuts (auto) 7.8 H, Absolute Lymphs (auto) 0.15 L, Nucleated RBC % 0, Toxic Granulation 1+ 02/22/23 06:40: Sodium 137, Potassium 5.3 H, Chloride 108 H, Carbon Dioxide 22.0, Anion Gap 7, BUN 113 H*, Creatinine 3.82 H, Estim Creat Clear Calc 23.96, Est GFR (MDRD) Af Amer 15 L, Est GFR (MDRD) Non-Af 12 L, BUN/Creatinine Ratio 29.6 H, Glucose 205 H, Calcium 9.4, Total Bilirubin 0.40, AST 29, ALT 40, Alkaline Phosphatase 33 L, Total Protein 6.1 L, Albumin 3.1 L, Globulin 3.0, Albumin/Globulin Ratio 1.0 02/22/23 11:05: POC Glucose 338 H 02/22/23 : Urine Color Yellow, Urine Clarity Clear, Urine pH 6.0, Ur Specific [place] 1.015, Urine Protein 15 H, Urine Glucose (UA) Normal, Urine Ketones Negative, Urine Occult Blood 10 H, Urine Nitrite Negative, Urine Bilirubin Negative, Urine Urobilinogen Normal, Ur Leukocyte Esterase 25 H, Urine RBC 0-5 SEEN, Urine WBC 0-5 SEEN, Ur Squamous Epith Cells 0-5 SEEN, Urine Bacteria 0 SEEN, Urine Mucus 0 SEEN 02/22/23 : Urine Creatinine 56.90 02/22/23 : Ur Random Sodium 44 Micro: Microbiology 02/22/23 Unknown Urine, Clean Catch Legionella Antigen - Final 02/22/23 Unknown Urine, Clean Catch Streptococcus pneumoniae Antigen (M - Final 02/22/23 00:28 Mucosa - Nose Respiratory Panel (PCR) - Final Radiology Impression Chest X-Ray 02/22/23 00:15 IMPRESSION: 1. Mild diffuse interstitial opacities, right greater the left, which may represent asymmetric edema or atypical pneumonia. 2. Stable cardiomegaly. Electronically Signed: Andry Evans DO at 0:55 EDT ,
[2023-02-22 19:56] LABS: Bedside Glucose 232 mg/dL (74-106)
[2023-02-22] MEDS: Insulin Glargine-YFGN 100 UNIT/ML Pen 38 UNIT SC (21:57)
[2023-02-22 22:56] LABS: Bedside Glucose 306 mg/dL (74-106)
[2023-02-23] VITALS (7 sets, daily range): BP systolic 129–150; BP diastolic 56–61; PULSE 80–96; RESP 16–20; TEMP 36.4–36.7; O2SAT 94–99; BMI 54.3
[2023-02-23] MEDS: 0.9% Saline Lock 10 ML Syringe IV (06:54)
[2023-02-23] MEDS: Insulin Lispro 100 UNIT/ML INSULN.PEN SC ×4 (06:56→21:13)
[2023-02-23 07:11] LABS: Absolute Lymphocyte Count 0.17 X10^3/uL (0.83-4.51); Absolute Neutrophil Count 6.9 X10^3/uL (2.0-7.7); Hematocrit 29.1 % (37-47); Hemoglobin 8.9 g/dL (12.0-15.0); Lymphocyte # 0.17 X10^3/ul (0.83-4.51); Lymphocyte % 2.3 % (19-41); Mean Corp Hgb Conc 30.6 g/dL (32-36); Mean Corpuscular Hgb 30.7 pg (27.0-32.0); Mean Corpuscular Volume 100.3 fL (81-99); Mean Platelet Vol. 9.7 fl (6.2-12.0); Monocyte# 0.18 X10^3/uL; Monocyte% 2.5 % (0-10); NRBC Flagged by Analyzer 0 % (0-5); Neutrophil # 6.86 X10^3/uL (2.7-7.7); Neutrophil % 94.2 % (47-70); POSITIVE DIFFERENTIAL YES; Platelet Count 224 K/mm3 (150-450); RBC Distribution Width CV 13.8 % (11.6-14.6); RBC Distribution Width SD 50.9 fl (35.1-43.9); White Blood Count 7.3 K/mm3 (4.4-11.0)
[2023-02-23 07:17] LABS: Differential Indicated SCAN CRITERIA MET
[2023-02-23 07:20] LABS: Bedside Glucose 217 mg/dL (74-106)
[2023-02-23] MEDS: Ipratropium/Albuterol Sulfate 3 ML AMPUL.NEB INHALATION ×3 (07:30→19:08)
[2023-02-23 07:41] LABS: Anion Gap 5 (5-15); BUN 102 mg/dL (7-18); BUN/Creat Ratio 35.5 RATIO (10-20); Chloride 110 mmol/L (98-107); Creatinine, Serum 2.87 mg/dL (0.55-1.02); EST Glomerular Filtration Rate 17 mL/min (>60); Est Glom Filt Rate - Afr Amer 21 mL/min (>60); Estimated Creatinine Clearance 31.94 ml/min; Glucose 227 mg/dL (74-106); Potassium 4.9 mmol/L (3.5-5.1); Sodium Level 139 mmol/L (136-145)
[2023-02-23 07:49] LABS: Differential Comment SCANNED
--- NOTE | 2023-02-23 08:00 | NURSING ---
Tele strip done at 8am with Dr. Robison noted BBB.
--- NOTE | 2023-02-23 08:01 | PN.HOSP_ITS ---
Reason for Visit Reason for Visit: Diagnoses Essential (primary) hypertension (02/22/23) Chronic obstructive pulmonary disease with (acute) exacerbation (02/22/23) Acute kidney failure, unspecified (02/22/23) Chronic kidney disease, unspecified (02/22/23) Subjective Subjective Breathing better. Nasal congestion. Objective Data Objective Data Vital Signs: Vital Signs Temp Pulse Resp BP Pulse Ox O2 Del Method O2 Flow Rate 36.4 C L 80 18 131/56 H 94 Nasal Cannula 4 02/23/23 02:46 02/23/23 07:30 02/23/23 07:30 02/23/23 02:46 02/23/23 07:30 02/23/23 07:30 02/23/23 07:30 Oxygen Flow Rate (L/min) 4 Oxygen Delivery Method Nasal Cannula Weight: 114.2 kg Body Mass Index (BMI) 54.3 Intake & Output: Intake and Output for Last 24 Hours 02/21/23 02/22/23 02/23/23 23:59 23:59 23:59 Intake Total 1703.33 / 1703.33 440 / 440 Output Total 2500 / 2500 Balance -796.67 / -796.67 440 / 440 Lab / Micro Data Result Diagrams: 02/23/23 06:16 02/23/23 06:16 Labs: Laboratory Results - last 24 hr 02/22/23 06:40: Toxic Granulation 1+ 02/22/23 11:05: POC Glucose 338 H 02/22/23 16:32: POC Glucose 232 H 02/22/23 21:57: POC Glucose 306 H 02/23/23 06:16: Sodium 139, Potassium 4.9, Chloride 110 H, Carbon Dioxide 24.0, Anion Gap 5, BUN 102 H*, Creatinine 2.87 H, Estim Creat Clear Calc 31.94, Est GFR (MDRD) Af Amer 21 L, Est GFR (MDRD) Non-Af 17 L, BUN/Creatinine Ratio 35.5 H , Glucose 227 H, Calcium 9.0 02/23/23 06:16: WBC 7.3, RBC 2.90 L, Hgb 8.9 L, Hct 29.1 L, MCV 100.3 H, MCH 30.7, MCHC 30.6 L, RDW Std Deviation 50.9 H, RDW Coeff of Jazzmine 13.8, Plt Count 224, MPV 9.7, Immature Gran % (Auto) 1.000 H, Neut % (Auto) 94.2 H, Lymph % (Auto) 2.3 L, [place] % (Auto) 2.5, Eos % (Auto) 0.0, Baso % (Auto) 0.0, Absolute Neuts (auto) 6.9, Absolute Lymphs (auto) 0.17 L, Nucleated RBC % 0, Differential Comment SCANNED 02/23/23 06:54: POC Glucose 217 H Micro: Microbiology 02/22/23 Unknown Urine, Clean Catch Legionella Antigen - Final 02/22/23 Unknown Urine, Clean Catch Streptococcus pneumoniae Antigen (M - Final 02/22/23 00:28 Mucosa - Nose Respiratory Panel (PCR) - Final Physical Exam Const alert and no apparent distress Resp normal respiratory effort, no retractions, no use of accessory muscles and clear to auscultation bilaterally Cardio regular rate, regular rhythm, S1 normal heart sound and S2 normal heart sound GI normal to inspection, nondistended, normoactive bowel sounds, soft to palpation, non-tender and non-distended Extremity normal to inspection and full ROM Assessment & Plan Assessment/Plan (1) COPD exacerbation: PLAN: Acute on chronic COPD/asthma exacerbation with chronic hypoxic respiratory failure probably due to atypical viral pneumonia might be bacterial superinfection: In ED, patient was on 4 L of oxygen, but tachypneic labored breathing. Chest x-ray image reviewed shows mild diffuse interstitial opacities, right greater than left with slight worsening of lung parenchyma from previous chest x-ray of May 2022 with technical limitation. Procalcitonin 0.34. BNP elevated 567. Urinary antigens and respiratory panel are negative. SCx pending Patient is empirically on IV ceftriaxone and Zithromax and is continued. Last Echocardiogram 04/11/2020 with normal LV systolic function, EF 60%, stage I diastolic dysfunction, PASP 38 mmHg. I did not think patient has CHF exacerbation but I will discontinue IV fluid. (2) Acute kidney injury superimposed on chronic kidney disease: PLAN: Acute kidney injury on CKD stage IIIb: Admission BUN/Cr 127/4.19, prior baseline creatinine noted to be primarily 1.6-2.1, most recent lab in 10/06/2022 creatinine 2.12. [facility] is consulted. IV fluid is discontinued. Urine random sodium 44, creatinine 56. UA LE 25, WBC 0-5 cells nitrite negative and patient does not have symptoms of acute low intact symptoms including dysuria therefore UTI ruled out. Renal ultrasound severely atrophic left kidney. Sequela of chronic renal insfficiency and/or renal medical disease. (3) Acute hyperkalemia: PLAN: Resolved Likely related with KARLA as noted, EKG without acutely peaked T waves, admission potassium 5.8, telemetry monitoring. Repeat potassium is 5.3. I think pot assium is between 4.8-5.3, her baseline. (4) Lower extremity edema: PLAN: Bilateral lower extremity edema, underlying venous insufficiency/PVD: Patient states she regularly takes diuretic and she has lost mainly fluid weight recently last 3 months. Hold for Lasix but monitor intake and output. PLAN: Plan Chronic stable conditions: * PAF: continue patient on diltiazem, not chronically anticoagulated per current list. * Hypertension: Continue home regimen including diltiazem regimen, holding nephrotoxic regimen otherwise, PRN hydralazine. * Hyperlipidemia: Temporarily holding patient home fenofibrate regimen. Not on statin therapy per current list. * Diabetes mellitus type II: Hold oral home regimen, continue home insulin regimen, ADA diet, accu checks with Humalog sliding scale coverage * Chronic macrocytic anemia: Admission hemoglobin 10.8, baseline primarily 11 range, mild decreased 9.5. On baseline * Former tobacco use: Encourage continued tobacco cessation. * Morbid Obesity: Weight loss and lifestyle changes encouraged. * GERD: We will continue home PPI. DVT prophylaxis: Heparin. CODE status: Full code Charges/Coding Visit Charges Inpatient E&M: 34474 Subs Hosp L2
[2023-02-23] MEDS: Pantoprazole Sodium 40 MG Tablet PO ×2 (10:22→21:11)
[2023-02-23] MEDS: Febuxostat 40 MG TABLET PO (10:22)
[2023-02-23] MEDS: Loratadine 10 MG Tablet PO (10:22)
[2023-02-23] MEDS: Aspirin E.C. 81 MG Tablet PO (10:22)
[2023-02-23] MEDS: Heparin Injection (Vial) 5,000 UNIT/ML VIAL 5000 UNIT SC (10:22)
[2023-02-23] MEDS: guaiFENesin/D-Methorphan TAB.SR.12H 1 TABLET PO ×2 (10:22→21:11)
[2023-02-23] MEDS: Lidocaine 5% Patch 2 PATCH TOPICAL (10:22)
[2023-02-23] MEDS: Montelukast 10 MG Tablet PO (10:22)
[2023-02-23] MEDS: Menthol/Lanolin/Calamine/Znox 113 GM Tube 1 APPLIC TOPICAL ×2 (10:27→21:14)
[2023-02-23] MEDS: Mirabegron 50 MG TAB.ER.24H PO (10:54)
[2023-02-23 11:31] LABS: Bedside Glucose 259 mg/dL (74-106)
--- NOTE | 2023-02-23 14:18 | PCM.PN.REN ---
Subjective Subjective Following for KARLA on CKD Patient is sitting in chair. Denies any complaints. Denies any nausea, vomiting or diarrhea. Objective Data Objective Data Vital Signs: Vital Signs Temp Pulse Resp BP Pulse Ox O2 Del Method O2 Flow Rate 98.0 F 85 16 129/58 H 97 Nasal Cannula 4 02/23/23 08:45 02/23/23 14:16 02/23/23 14:16 02/23/23 08:45 02/23/23 08:45 02/23/23 08:45 02/23/23 13:33 Oxygen Flow Rate (L/min) 4 Oxygen Delivery Method Nasal Cannula Weight: 114.2 kg Body Mass Index (BMI) 54.3 Intake & Output: Intake and Output for Last 24 Hours 02/21/23 02/22/23 02/23/23 23:59 23:59 23:59 Intake Total 1703.33 / 1703.33 440 / 440 Output Total 2500 / 2500 Balance -796.67 / -796.67 440 / 440 Lab / Micro Data Result Diagrams: 02/23/23 06:16 02/23/23 06:16 Labs: Laboratory Results - last 24 hr 02/22/23 16:32: POC Glucose 232 H 02/22/23 21:57: POC Glucose 306 H 02/23/23 06:16: Sodium 139, Potassium 4.9, Chloride 110 H, Carbon Dioxide 24.0, Anion Gap 5, BUN 102 H*, Creatinine 2.87 H, Estim Creat Clear Calc 31.94, Est GFR (MDRD) Af Amer 21 L, Est GFR (MDRD) Non-Af 17 L, BUN/Creatinine Ratio 35.5 H, Glucose 227 H, Calcium 9.0 02/23/23 06:16: WBC 7.3, RBC 2.90 L, Hgb 8.9 L, Hct 29.1 L, MCV 100.3 H, MCH 30.7, MCHC 30.6 L, RDW Std Deviation 50.9 H, RDW Coeff of Jazzmine 13.8, Plt Count 224, MPV 9.7, Immature Gran % (Auto) 1.000 H, Neut % (Auto) 94.2 H, Lymph % (Auto) 2.3 L, [place] % (Auto) 2.5, Eos % (Auto) 0.0, Baso % (Auto) 0.0, Absolute Neuts (auto) 6.9, Absolute Lymphs (auto) 0.17 L, Nucleated RBC % 0, Differential Comment SCANNED 02/23/23 06:54: POC Glucose 217 H 02/23/23 11:03: POC Glucose 259 H Micro: Microbiology 02/22/23 Unknown Urine, Clean Catch Legionella Antigen - Final 02/22/23 Unknown Urine, Clean Catch Streptococcus pneumoniae Antigen (M - Final 02/22/23 00:28 Mucosa - Nose Respiratory Panel (PCR) - Final Radiography Diagnostic Testing: Radiology Impression Renal Ultrasound 02/22/23 05:55 IMPRESSION: 1. Severely atrophic left kidney. 2. Sequela of chronic renal insufficiency and/or renal medical disease. Electronically Signed: Reentta Oliveira MD at 9:45 EDT Reading Location ID and State: [facility] / [place] , Service support , Physical Exam Narrative General: Alert, Oriented x3, no apparent distress Neck: Supple, No JVD Lungs:?Lung sounds clear anteriorly, diminished breath sounds posterior lobes. No rhonchi or rales noted. Cardiovascular: Regular rate, Regular Rhythm, Normal S1, Normal S2 Abdomen: Obese, normal bowel sound, soft, nontender Extremities: trace bilateral ankle edema, Michi wrap bandages to b/l legs Assessment & Plan Assessment/Plan (1) Acute kidney injury superimposed on chronic kidney disease: (2) COPD exacerbation: (3) Essential (primary) hypertension: PLAN: Plan Impression/Plan: The patient is a 73-year-old woman with past history of type 2 diabetes mellitus, hypertension, COPD, pulmonary hypertension, paroxysmal atrial fibrillation, CONCEPCION, and morbid obesity. The patient presents to the hospital on 02/21/2023 with dyspnea, and she is being treated for COPD exacerbation. Nephrology is following for acute kidney injury on chronic kidney disease. Nonoliguric acute kidney injury on chronic kidney disease stage IV. Baseline serum creatinine is 2.00 to 2.20 mg/dL. 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 KARLA is likely due to decreased effective blood volume from decreased oral intake made worse by concurrent use of diuretic and ARB. Renal function has improved since admission. 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 Agree with holding ARB and diuretic. Bps acceptable Encouraged oral solute/fluid intake. Renal US: Right kidney measures 12.5 cm. Left kidney 9.1 cm. No renal calculi or hydronephrosis. Severely atrophic left kidney. In comparing kidney ultrasound from May 2022 which showed mild atrophy of left kidney, left kidney measured 9 cm Hyperkalemia. The patient presented with potassium level 5.8 mmol/L. Potassium is 4.9 today. Hyperkalemia is likely due to KARLA on CKD in the setting of concurrent use of ARB. Agree with holding ARB. Recheck potassium level tomorrow. Metabolic acidosis. Likely due to KARLA on CKD. Resolved. Today bicarb is 24 The patient was taking MiraLAX for constipation. She reports looser bowel movement for 2 to 3 days prior to admission as well. Acute hypoxic respiratory failure secondary to COPD exacerbation The patient is being treated for COPD exacerbation with bronchodilator and corticosteroid. She is also being covered for lower respiratory tract infection with antimicrobial. Disposition; patient will be going home at time of discharge. Patient has follow-up appointment with Dr. Ribeiro in [place] office mid February. She will keep this appointment
--- NOTE | 2023-02-23 14:20 | CASEMGMT ---
RN?CM?MEDICAL PHOTOGRAPHER?CM?to room to meet with patient for initial transition planning/care coordination?assessment.?RN?CM?introduced self and role at [facility].? Pt voices understanding and consents to?assessment?at this time.? Pt sitting up in recliner chair in room in no distress at this time.? @ bedside. Pt is A/O at this time and answers all questions appropriately.?? Care providers, pharmacy, and demographics verified/updated at this time. PCP: Dr Oquendo Specialists: Dr Ribeiro- nephrology. Dr Hines- pulmonology. Dr Schroeder-cardiology. Dr Montes-urology. Dr Stroud-GI. Dr Van-podiatry. Dr Velazquez-endocrinology. Dr Delgado-ENT. [facility]: [facility] Living Will/HPOA: Has both LW and HCPOA, who is her , Willian Ling LNOK: Living Arrangements: Patient lives with in single story home with 3 steps to enter the home. Pt is indep w/most ADL's. supervises tub transfers and assists w/donning socks. does most home mgt tasks. Transportation: DME: Patient states she has shower chair, rollator, hospital bed, continuous glucose monitoring system, glucometer, nebulizer, pulse ox, [facility] states has been wearing it continuously, mostly @ 4 l/m. Has concentrator and portable tanks. states 7 portable tanks were just delivered to pt's home today. Portable tank in pt's room for her to go home on. Pt states she has all insulin and supplies needed. Pt used to wear a CPAP, but states has not worn it for about 3 years. SNF/HHC: Patient has had [facility] in the past and has been to [facility]. Pt denies need for HHC. She was made aware to f/u with her PCP if she changes her mind once returning home. Discussed [facility] homebound criteria. She is a member of [employer] and goes to [employer]. Pt wishes to return home and states has no concerns with going home at time of discharge.? CM?to follow for any discharge planning/needs.? Pt voices no further concerns/needs at this time.? Advised pt to ask for?CM?if any further questions/concerns/needs arise.? Voices understanding. PLAN:??Home w/spousal support and discharge plans in place. Leonard BSN?RN?CM
[2023-02-23] MEDS: Insulin Glargine-YFGN 100 UNIT/ML Pen 38 UNIT SC (21:11)
[2023-02-23] MEDS: Ceftriaxone 1 GM/50 ML BAG IV (21:12)
[2023-02-23] MEDS: MELATONIN 3 MG TABLET PO (23:26)
[2023-02-24 02:37] VITALS: BP 147/66; PULSE 86; RESP 20; TEMP 36.4; O2SAT 96
[2023-02-24] MEDS: Insulin Lispro 100 UNIT/ML INSULN.PEN SC ×2 (06:04→10:47)
[2023-02-24] MEDS: Ipratropium/Albuterol Sulfate 3 ML AMPUL.NEB INHALATION (07:00)
[2023-02-24 07:01] VITALS: PULSE 75; RESP 20; O2SAT 93
[2023-02-24 07:27] LABS: Absolute Lymphocyte Count 0.24 X10^3/uL (0.83-4.51); Absolute Neutrophil Count 6.6 X10^3/uL (2.0-7.7); Basophil# 0.02 X10^3/uL; Basophil% 0.3 % (0-1); Hematocrit 28.8 % (37-47); Lymphocyte # 0.24 X10^3/ul (0.83-4.51); Lymphocyte % 3.3 % (19-41); Mean Corp Hgb Conc 31.3 g/dL (32-36); Mean Corpuscular Volume 99.3 fL (81-99); Mean Platelet Vol. 9.7 fl (6.2-12.0); Monocyte# 0.35 X10^3/uL; Monocyte% 4.8 % (0-10); NRBC Flagged by Analyzer 0 % (0-5); Neutrophil # 6.58 X10^3/uL (2.7-7.7); Neutrophil % 90.2 % (47-70); POSITIVE DIFFERENTIAL YES; Platelet Count 229 K/mm3 (150-450); RBC Distribution Width CV 13.7 % (11.6-14.6); RBC Distribution Width SD 50.2 fl (35.1-43.9); White Blood Count 7.3 K/mm3 (4.4-11.0)
[2023-02-24 07:31] LABS: Differential Indicated SCAN CRITERIA MET
--- NOTE | 2023-02-24 07:54 | PN.HOSP_ITS ---
Reason for Visit Reason for Visit: Diagnoses Hyperkalemia (02/22/23) Essential (primary) hypertension (02/22/23) Chronic obstructive pulmonary disease with (acute) exacerbation (02/22/23) Acute kidney failure, unspecified (02/22/23) Chronic kidney disease, unspecified (02/22/23) Localized edema (02/22/23) Subjective Subjective feels well. feels ready to go home. Objective Data Objective Data Vital Signs: Vital Signs Temp Pulse Resp BP Pulse Ox O2 Del Method O2 Flow Rate 36.4 C L 75 20 H 147/66 H 93 Nasal Cannula 4 02/24/23 02:37 02/24/23 07:01 02/24/23 07:01 02/24/23 02:37 02/24/23 07:01 02/24/23 07:01 02/24/23 07:01 Oxygen Flow Rate (L/min) 4 Oxygen Delivery Method Nasal Cannula Weight: 114.2 kg Body Mass Index (BMI) 54.3 Intake & Output: Intake and Output for Last 24 Hours 02/22/23 02/23/23 02/24/23 23:59 23:59 23:59 Intake Total 1703.33 / 1703.33 1090 / 1090 805 / 805 Output Total 2500 / 2500 600 / 600 Balance -796.67 / -796.67 1090 / 1090 205 / 205 Lab / Micro Data Result Diagrams: 02/24/23 06:27 02/24/23 06:27 Labs: Laboratory Results - last 24 hr 02/23/23 11:03: POC Glucose 259 H 02/24/23 06:27: WBC 7.3, RBC 2.90 L, Hgb 9.0 L, Hct 28.8 L, MCV 99.3 H, MCH 31.0, MCHC 31.3 L, RDW Std Deviation 50.2 H, RDW Coeff of Jazzmine 13.7, Plt Count 229, MPV 9.7, Immature Gran % (Auto) 1.400 H, Neut % (Auto) 90.2 H, Lymph % (Auto) 3.3 L, [place] % (Auto) 4.8, Eos % (Auto) 0.0, Baso % (Auto) 0.3, Absolute Neuts (auto) 6.6, Absolute Lymphs (auto) 0.24 L, Nucleated RBC % 0 Micro: Microbiology 02/22/23 Unknown Urine, Clean Catch Legionella Antigen - Final 02/22/23 Unknown Urine, Clean Catch Streptococcus pneumoniae Antigen (M - Final 02/22/23 00:28 Mucosa - Nose Respiratory Panel (PCR) - Final Radiography Diagnostic Testing: Radiology Impression Echocardiogram 02/22/23 02:39 Interpretation Summary Normal LV size. Left ventricular systolic function is normal. The estimated ejection fraction is 55 %. Stage 1 diastolic dysfunction. Mild tricuspid valve insufficiency. Pulmonary artery systolic pressure is 35 mmHg. Ordering Physician: Jessica Christianson Referring Physician: Veronica Oquendo M.D. Performed By: Dre Merritt, JASON Renal Ultrasound 02/22/23 05:55 IMPRESSION: 1. Severely atrophic left kidney. 2. Sequela of chronic renal insufficiency and/or renal medical disease. Electronically Signed: Renetta Oliveira MD at 9:45 EDT Reading Location ID and State: [address] [place] [address] , Service support , Physical Exam Const alert and no apparent distress Resp normal respiratory effort, no retractions, no use of accessory muscles and clear to auscultation bilaterally Cardio regular rate, regular rhythm, S1 normal heart sound and S2 normal heart sound GI normal to inspection, nondistended, normoactive bowel sounds, soft to palpation, non-tender and non-distended Extremity Extremity Narrative: edema. Assessment & Plan Assessment/Plan (1) COPD exacerbation: PLAN: Acute on chronic COPD/asthma exacerbation with chronic hypoxic respiratory failure probably due to atypical viral pneumonia might be bacterial superinf ection: In ED, patient was on 4 L of oxygen, but tachypneic labored breathing. Chest x-ray image reviewed shows mild diffuse interstitial opacities, right greater than left with slight worsening of lung parenchyma from previous chest x-ray of May 2022 with technical limitation. Procalcitonin 0.34. BNP elevated 567. Urinary antigens and respiratory panel are negative. SCx pending Patient is empirically on IV ceftriaxone and Zithromax and is continued. Last Echocardiogram 04/11/2020 with normal LV systolic function, EF 60%, stage I diastolic dysfunction, PASP 38 mmHg. I did not think patient has CHF exacerbation but I will discontinue IV fluid. Change steroids to prednisone 5-day burtst of 40mg. Pt will need duoneb Rx upon discharge. Check ambulatory pulse oximetry (normally on 4l/m at home) Follow up with Dr. Delgado at next scheduled appointment. (2) Acute kidney injury superimposed on chronic kidney disease: PLAN: Acute kidney injury on CKD stage IIIb: Admission BUN/Cr 127/4.19, prior baseline creatinine noted to be primarily 1.6-2.1, most recent lab in 10/06/2022 creatinine 2.12. [place] [facility] is consulted. IV fluid is discontinued. Urine random sodium 44, creatinine 56. UA LE 25, WBC 0-5 cells nitrite negative and patient does not have symptoms of acute low intact symptoms including dysuria therefore UTI ruled out. Renal ultrasound severely atrophic left kidney. Sequela of chronic renal insufficiency and/or renal medical disease. Follow up with Dr. Ribeiro on 03/11 (3) Acute hyperkalemia: PLAN: Resolved Likely related with KARLA as noted, EKG without acutely peaked T waves, admission potassium 5.8, telemetry monitoring. Repeat potassium is 5.3. I think potassium is between 4.8-5.3, her baseline. (4) Lower extremity edema: PLAN: Bilateral lower extremity edema, underlying venous insufficiency/PVD: Patient states she regularly takes diuretic and she has lost mainly fluid weight recently last 3 months. Hold for Lasix but monitor intake and output. Lymphedema wraps PLAN: Plan Chronic stable conditions: * PAF: continue patient on diltiazem, not chronically anticoagulated per current list. * Hypertension: Continue home regimen including diltiazem regimen, holding nephrotoxic regimen otherwise, PRN hydralazine. * Hyperlipidemia: Temporarily holding patient home fenofibrate regimen. Not on statin therapy per current list. * Diabetes mellitus type II: Hold oral home regimen, continue home insulin regimen, ADA diet, accu checks with Humalog sliding scale coverage * Chronic macrocytic anemia: Admission hemoglobin 10.8, baseline primarily 11 range, mild decreased 9.5. On baseline * Former tobacco use: Encourage continued tobacco cessation. * Morbid Obesity: Weight loss and lifestyle changes encouraged. * GERD: We will continue home PPI. DVT prophylaxis: Heparin. CODE status: Full code Charges/Coding Visit Charges Inpatient E&M: 03639 Subs Hosp L2
[2023-02-24 07:56] LABS: Differential Comment SCANNED
[2023-02-24 07:59] LABS: Anion Gap 5 (5-15); BUN 98 mg/dL (7-18); BUN/Creat Ratio 38.1 RATIO (10-20); Calcium,Total 8.8 mg/dL (8.5-10.1); Chloride 110 mmol/L (98-107); Creatinine, Serum 2.57 mg/dL (0.55-1.02); EST Glomerular Filtration Rate 20 mL/min (>60); Est Glom Filt Rate - Afr Amer 24 mL/min (>60); Estimated Creatinine Clearance 35.67 ml/min; Glucose 164 mg/dL (74-106); Potassium 4.4 mmol/L (3.5-5.1); Sodium Level 139 mmol/L (136-145)
[2023-02-24 08:30] VITALS: BP 160/63; PULSE 89; RESP 18; TEMP 36.6; O2SAT 96
[2023-02-24 09:33] VITALS: O2SAT 4; O2SAT 87; O2SAT 88; O2SAT 95
--- NOTE | 2023-02-24 09:45 | DS.PCM_ITS ---
Providers Date of Admission: 02/22/23 Primary Care Physician: Dr. Veronica Oquendo, Consultations 02/22/23 02:39 Consult: Nephrology Routine Consulting Provider: Suzanne Moore Reason for Consult: KARLA on CKD EMERGENT Consult: No MD Notified: Yes Date Notified: 02/22/23 Time Notified: 02:23 Method of Notification: Answering Service Comments:: barrera notified Reason For Visit: COPD EXACERBATION/PNA Diagnosis Discharge Diagnosis (1) COPD exacerbation: Status: Chronic Code(s): J44.1 - Chronic obstructive pulmonary disease with (acute) exacerbation Plan: Acute on chronic COPD/asthma exacerbation with chronic hypoxic respiratory failure probably due to atypical viral pneumonia might be bacterial superinfection: In ED, patient was on 4 L of oxygen, but tachypneic labored breathing. Chest x-ray image reviewed shows mild diffuse interstitial opacities, right greater than left with slight worsening of lung parenchyma from previous chest x-ray of May 2022 with technical limitation. Procalcitonin 0.34. BNP elevated 567. Urinary antigens and respiratory panel are negative. SCx pending Patient is empirically on IV ceftriaxone and Zithromax and is continued. Last Echocardiogram 04/11/2020 with normal LV systolic function, EF 60%, stage I diastolic dysfunction, PASP 38 mmHg. I did not think patient has CHF exacerbation but I will discontinue IV fluid. Change steroids to prednisone 5-day burtst of 40mg. Pt will need duoneb Rx upon discharge. Check ambulatory pulse oximetry (normally on 4l/m at home) patient did well on 4 L. We will continue with that upon discharge. Follow up with Dr. Delgado at next scheduled appointment. (2) Acute kidney injury superimposed on chronic kidney disease: Status: Chronic Code(s): N17.9 - Acute kidney failure, unspecified; N18.9 - Chronic kidney disease, unspecified Plan: Acute kidney injury on CKD stage IIIb: Admission BUN/Cr 127/4.19, prior baseline creatinine noted to be primarily 1.6-2.1, most recent lab in 10/06/2022 creatinine 2.12. [facility] is consulted. IV fluid is discontinued. Urine random sodium 44, creatinine 56. UA LE 25, WBC 0-5 cells nitrite negative and patient does not have symptoms of acute low intact symptoms including dysuria therefore UTI ruled out. Renal ultrasound severely atrophic left kidney. Sequela of chronic renal insufficiency and/or renal medical disease. Follow up with Dr. Ribeiro on 03/11 (3) Acute hyperkalemia: Status: Acute Code(s): E87.5 - Hyperkalemia Plan: Resolved Likely related with KARLA as noted, EKG without acutely peaked T waves, admission potassium 5.8, telemetry monitoring. Repeat potassium is 5.3. I think potassium is between 4.8-5.3, her baseline. (4) Lower extremity edema: Status: Acute Code(s): R60.0 - Localized edema Plan: Bilateral lower extremity edema, underlying venous insufficiency/PVD: Patient states she regularly takes diuretic and she has lost mainly fluid weight recently last 3 months. Hold for Lasix but monitor intake and output. Lymphedema wraps Plan Chronic stable conditions: * PAF: continue patient on diltiazem, not chronically anticoagulated per current list. * Hypertension: Continue home regimen including diltiazem regimen, holding nephrotoxic regimen otherwise, PRN hydralazine. * Hyperlipidemia: Temporarily holding patient home fenofibrate regimen. Not on statin therapy per current list. * Diabetes mellitus type II: Hold oral home regimen, continue home insulin regimen, ADA diet, accu checks with Humalog sliding scale coverage * Chronic macrocytic anemia: Admission hemoglobin 10.8, baseline primarily 11 range, mild decreased 9.5. On baseline * Former tobacco use: Encourage continued tobacco cessation. * Morbid Obesity: Weight loss and lifestyle changes encouraged. * GERD: We will continue home PPI. DVT prophylaxis: Heparin. CODE status: Full code Medications at Discharge Home Medications fluticasone propionate 50 mcg/actuation nasal spray,suspension 2 spray NASAL DAILY PRN PRN Congestion 06/21/17 febuxostat 40 mg tablet (Uloric) 40 mg PO DAILY gout 12/30/18 fluticasone 500 mcg-salmeterol 50 mcg/dose blistr powdr for inhalation (Advair Diskus) 1 inh inhalation BID SOB 07/17/20 acetaminophen 650 mg tablet,extended release (Tylenol Arthritis Pain) 650 mg PO Q12H 02/08/21 albuterol sulfate 90 mcg/actuation aerosol inhaler 2 puff inhalation Q4H PRN sob 02/08/21 aspirin 81 mg tablet,delayed release 81 mg PO DAILY #1 TAB 02/08/21 pantoprazole 40 mg tablet,delayed release 40 mg PO BID GERD 02/08/21 loratadine 10 mg tablet (Claritin) 10 mg PO DAILY Allergy 01/14/22 mirabegron 50 mg tablet,extended release 24 hr (Myrbetriq) 50 mg PO DAILY overactive bladder 01/14/22 tiotropium bromide 1.25 mcg/actuation mist for inhalation (Spiriva Respimat) 2 puff inhalation DAILY 01/14/22 fenofibrate nanocrystallized 145 mg tablet (Tricor) 145 mg PO DAILY Cholesterol 10/16/22 budesonide 0.5 mg/2 mL suspension for nebulization 0.5 mg inhalation BID 12/11/22 cholecalciferol (vitamin D3) 25 mcg (1,000 unit) tablet 5,000 unit PO DAILY supplement 12/11/22 insulin aspart U-100 100 unit/mL (3 mL) subcutaneous pen (Novolog FlexPen U-100 Insulin aspart) See Rx Instructions subcut TID 12/11/22 insulin glargine 100 unit/mL (3 mL) subcutaneous pen 38 unit subcut QPM DM 12/11/22 levalbuterol HCl 0.63 mg/3 mL solution for nebulization 0.63 mg inhalation Q6H PRN wheeze 12/11/22 lidocaine 5 % topical patch 2 patch topical DAILY pain 12/11/22 pen needle, diabetic 32 gauge x 5/32 (BD Ultra-Fine Sonam Pen Needle) #400 ea 01/22/23 flash glucose sensor (FreeStyle Garett 2 Sensor kit) #1 ea 02/19/23 linaclotide 72 mcg capsule (Linzess) 72 mcg PO DAILY IBS 02/22/23 montelukast 10 mg tablet (Singulair) 10 mg PO DAILY 02/22/23 azithromycin 500 mg tablet 500 mg PO DAILY 2 days #2 tabs 02/24/23 cephalexin 500 mg capsule 500 mg PO BID #8 caps 02/24/23 ipratropium 0.5 mg-albuterol 3 mg (2.5 mg base)/3 mL nebulization soln 3 ml inhalation BID PRN wheezing #180 mL 02/24/23 prednisone 20 mg tablet 40 mg PO DAILY #10 tabs 02/24/23 sodium chloride 0.65 % nasal spray aerosol (Deep Sea Nasal) 2 spray NASAL TID PRN PRN NASAL DRYNESS #0 mL 02/24/23 Hospital Course Operations None Procedures None Summary of Care Provided Minutes Spent on Discharge: 35 Weight / BMI Weight Weight: 114.2 kg Body Mass Index (BMI) 54.3 ABG / Lab / Microbiology Data Result Diagrams: 02/24/23 06:27 02/24/23 06:27 Laboratory: Laboratory Results - last 24 hr 02/23/23 11:03: POC Glucose 259 H 02/24/23 06:27: Sodium 139, Potassium 4.4, Chloride 110 H, Carbon Dioxide 24.0, Anion Gap 5, BUN 98 H, Creatinine 2.57 H, Estim Creat Clear Calc 35.67, Est GFR (MDRD) Af Amer 24 L, Est GFR (MDRD) Non-Af 20 L, BUN/Creatinine Ratio 38.1 H, Glucose 164 H, Calcium 8.8 02/24/23 06:27: WBC 7.3, RBC 2.90 L, Hgb 9.0 L, Hct 28.8 L, MCV 99.3 H, MCH 31.0, MCHC 31.3 L, RDW Std Deviation 50.2 H, RDW Coeff of [place] 13.7, Plt Count 229, MPV 9.7, Immature Gran % (Auto) 1.400 H, Neut % (Auto) 90.2 H, Lymph % (Auto) 3.3 L, [place] % (Auto) 4.8, Eos % (Auto) 0.0, Baso % (Auto) 0.3, Absolute N euts (auto) 6.6, Absolute Lymphs (auto) 0.24 L, Nucleated RBC % 0, Differential Comment SCANNED Microbiology: Microbiology 02/22/23 Unknown Urine, Clean Catch Legionella Antigen - Final 02/22/23 Unknown Urine, Clean Catch Streptococcus pneumoniae Antigen (M - Final 02/22/23 00:28 Mucosa - Nose Respiratory Panel (PCR) - Final Radiography Diagnostic Testing: Radiology Impression Echocardiogram 02/22/23 02:39 Interpretation Summary Normal LV size. Left ventricular systolic function is normal. The estimated ejection fraction is 55 %. Stage 1 diastolic dysfunction. Mild tricuspid valve insufficiency. Pulmonary artery systolic pressure is 35 mmHg. Ordering Physician: Jessica Christianson Referring Physician: Veronica Oquendo M.D. Performed By: Dre Merritt RCS Renal Ultrasound 02/22/23 05:55 IMPRESSION: 1. Severely atrophic left kidney. 2. Sequela of chronic renal insufficiency and/or renal medical disease. Electronically Signed: Renetta Oliveira MD at 9:45 EDT Reading Location ID and State: [facility] / [place] , Service support , D/C Instructions Discharge Diet: 2000 Calorie Control Diet Call your doctor if you observe: Shortness of breath Meaningful Use Info Meaningful Use Diagnoses (Choose all that apply): None applicable Discharge Plan Admission Admit Date/Time: 02/22/23 02:21 Primary Reason for Your Visit: COPD exacerbation. Attending Provider: Hoang Robison Primary Care Provider: Veronica Oquendo Consulting Providers: Suzanne Moore ; Jessica Christianson ; David Murphy Discharge Orders/Prescriptions Prescriptions: [place] Nasal 0.65 % Aerosol,[place] 2 spray NASAL TID PRN PRN (Reason: NASAL DRYNESS) Qty: 0 0RF cephalexin 500 mg capsule 500 mg PO BID Qty: 8 0RF azithromycin 500 mg tablet 500 mg PO DAILY 2 Days Qty: 2 0RF prednisone 20 mg tablet 40 mg PO DAILY Qty: 10 0RF Continued fluticasone propion-salmeterol [Advair Diskus] 500-50 mcg/dose blister with device 1 inh INHALATION BID albuterol sulfate 90 mcg/actuation HFA aerosol inhaler 2 puff INHALATION Q4H PRN (Reason: sob) acetaminophen [Tylenol Arthritis Pain] 650 mg tablet extended release 650 mg PO Q12H aspirin 81 mg tablet,delayed release (DR/EC) 81 mg PO DAILY Qty: 1 0RF levalbuterol HCl 0.63 mg/3 mL solution for nebulization 0.63 mg inhalation Q6H PRN (Reason: wheeze) lidocaine 5 % adhesive patch,medicated 2 patch topical DAILY Rx Instructions: leave on most painful area for up to 12 hrs insulin glargine 100 unit/mL (3 mL) insulin pen 38 unit SC QPM budesonide 0.5 mg/2 mL suspension for nebulization 0.5 mg inhalation BID insulin aspart U-100 [Novolog FlexPen U-100 Insulin] 100 unit/mL (3 mL) insulin pen See Rx Instructions subcut TID Rx Instructions: 07-07-17 with meals subcut three times a day; fenofibrate nanocrystallized [Tricor] 145 mg tablet 145 mg PO DAILY fluticasone propionate 1 SPRAY spray,suspension 2 spray NASAL DAILY PRN PRN (Reason: Congestion) febuxostat [Uloric] 40 MG tablet 40 mg PO DAILY cholecalciferol (vitamin D3) 25 mcg (1,000 unit) tablet 5,000 unit PO DAILY pantoprazole 40 mg tablet,delayed release (DR/EC) 40 mg PO BID loratadine [Claritin] 10 mg Tablet 10 mg PO DAILY Myrbetriq 50 mg Tablet Extended Release 24 Hr 50 mg PO DAILY Spiriva Respimat 1.25 mcg/actuation Mist 2 puff INHALATION DAILY montelukast [Singulair] 10 mg Tablet 10 mg PO DAILY Linzess 72 mcg Capsule 72 mcg PO DAILY ipratropium-albuterol 0.5 mg-3 mg(2.5 mg base)/3 mL solution for nebulization 3 ml inhalation BID PRN (Reason: wheezing) Qty: 180 0RF (DME) pen needle, diabetic [BD Ultra-Fine Sonam Pen Needle] 32 gauge x 5/32 needle See Rx Instructions .ROUTE .MEDSUPPLY Qty: 400 3RF Rx Instructions: 4times daily (DME) FreeStyle Garett 2 Sensor Kit See Rx Instructions .ROUTE .MEDSUPPLY Qty: 1 0RF Rx Instructions: 1 sensor q 14 days Discontinued triamterene-hydrochlorothiazid 37.5-25 mg tablet 1 tab PO DAILY losartan 100 mg tablet 100 mg PO DAILY tramadol 50 MG tablet 50 mg PO Q8H PRN (Reason: Pain Score 4-5) Qty: 9 0RF Referrals / Follow Up: Veronica Oquendo DO [Primary Care Provider] - Within 2 Weeks Suzanne Moore MD [Med Staff - Consulting] - Within 1 Month Octavio Delgado MD [Med Staff - Active Staff] - Within 1 Month (or previously scheduled appointment) Disposition Disposition (needs filled in before D/C Order can be placed): Home, Self Care Charges/Coding Visit Charges Inpatient E&M: 98455 Disch Hosp >30min
[2023-02-24] MEDS: Mirabegron 50 MG TAB.ER.24H PO (10:04)
[2023-02-24] MEDS: Febuxostat 40 MG TABLET PO (10:04)
[2023-02-24] MEDS: guaiFENesin/D-Methorphan TAB.SR.12H 1 TABLET PO (10:04)
[2023-02-24] MEDS: Loratadine 10 MG Tablet PO (10:04)
[2023-02-24] MEDS: LINACLOTIDE 72 MCG CAPSULE PO (10:04)
[2023-02-24] MEDS: Pantoprazole Sodium 40 MG Tablet PO (10:04)
[2023-02-24] MEDS: Lidocaine 5% Patch 2 PATCH TOPICAL (10:04)
[2023-02-24] MEDS: Montelukast 10 MG Tablet PO (10:04)
[2023-02-24] MEDS: Aspirin E.C. 81 MG Tablet PO (10:04)
[2023-02-24] MEDS: Menthol/Lanolin/Calamine/Znox 113 GM Tube 1 APPLIC TOPICAL (10:05)
[2023-02-24] MEDS: Sodium Chloride 0.65% 1 SPRAY SPRAY.BTL 2 SPRAY NASAL (12:03)
[2023-02-24 12:13] VITALS: O2SAT 97
--- NOTE | 2023-02-24 13:14 | CASEMGMT ---
Addendum entered by Adrianne Rueda 02/24/23 14:40: Sent updated oxygen rx to [facility] at this time via [employer]oom Tele[employer]. Original Note: RN CM into pt room, pt requires increased oxygen rx. Pt present. Pt states she had been wearing 4L continuous. She is aware that it was ordered at 2L . Pt aware that she was tested and did not require oxygen at rest. Pt has a pox and portable tank to go home on. Pt denies any further homegoing needs.
[2023-02-24 13:15] VITALS: BP 145/56; PULSE 86; RESP 18; TEMP 36.7; O2SAT 99
== END 2023-02-24 14:10 | disposition home or self-care (01) | DRG 682 ==
LOC: ED 01:40 → MS3 04:39
PROVIDERS: Internal Medicine; Admitting Provider Family Medicine; Emergency Provider Emergency Medicine; PCP Internal Medicine
DX: N17.9 Acute kidney failure, unspecified (principal); J12.9 Viral pneumonia, unspecified; J15.9 Unspecified bacterial pneumonia; I13.0 Hypertensive heart and chronic kidney disease with heart failure and stage 1 through stage 4 chronic kidney disease, or unspecified chronic kidney disease; J44.1 Chronic obstructive pulmonary disease with (acute) exacerbation; Z68.43 Body mass index [BMI] 50.0-59.9, adult; J44.0 Chronic obstructive pulmonary disease with (acute) lower respiratory infection; J96.11 Chronic respiratory failure with hypoxia; I27.20 Pulmonary hypertension, unspecified; I50.9 Heart failure, unspecified; N18.4 Chronic kidney disease, stage 4 (severe); E11.22 Type 2 diabetes mellitus with diabetic chronic kidney disease; E66.01 Morbid (severe) obesity due to excess calories; E11.51 Type 2 diabetes mellitus with diabetic peripheral angiopathy without gangrene; I48.0 Paroxysmal atrial fibrillation; K21.9 Gastro-esophageal reflux disease without esophagitis; E78.5 Hyperlipidemia, unspecified; G47.33 Obstructive sleep apnea (adult) (pediatric); E87.5 Hyperkalemia; D86.9 Sarcoidosis, unspecified; Z99.81 Dependence on supplemental oxygen; Z79.51 Long term (current) use of inhaled steroids; Z79.82 Long term (current) use of aspirin; Z79.899 Other long term (current) drug therapy; Z87.891 Personal history of nicotine dependence; Z86.16 Personal history of COVID-19
CPT/HCPCS: 36415; 71046; 76770; 80048; 80053; 81001; 82570; 82962; 83735; 83880; 84145; 84300; 85025; 87449; 87633; 87635; 93005; 93306; 94640; 94668; 97110; 97162; 97165; 97530; 97535; 99252; 99284; J7030; J7050; Q9957; A4216; G0463; U0003; U0005

== ENCOUNTER 2023-03-05 12:54 | Emergency (ER) | payer MEDICARE, OTHER, SELFPAY ==
[2022-07-11 11:12] VITALS: BMI 40.4
[2023-03-05 12:54] VITALS: BP 153/65; PULSE 82; RESP 16; TEMP 36.1; O2SAT 96; BMI 47.4
--- NOTE | 2023-03-05 13:36 | EDS_ITS ---
HPI History of Present Illness Chief Complaint: Shortness of Breath Narrative Narrative: 72-year-old female past medical history of COPD usually wears 2 to 3 L of oxygen at home presents with increasing shortness of breath. She states that she spent 2 days in the hospital and was placed on IV antibiotics at the time. She went home on antibiotics for few more days. She was discharged from the hospital a week ago on Thursday, almost 9 days ago. She states that she has been sick over the last week with sinus congestion and drainage running down the back of her throat, causing her shortness of breath. She denies any fevers or chills but states that she had increased difficulty breathing. She was sent home on a prednisone burst but did not start taking it until today. She took 40 mg and stated it is not working. She also has nebulizer treatments that she does 3 times a day, and also is ineffective in treating her shortness of breath. 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 She presents with increasing shortness of breath and sinus drainage. [facility] Medical History Allergic rhinitis Asthma Chronic kidney disease Chronic obstructive lung disease Chronic renal failure, stage 3 (moderate) Compression fracture of L1 vertebra Constipation COVID-19 Debility Diabetes Diabetes mellitus type 2 in obese Dysphagia Essential (primary) hypertension GERD (gastroesophageal reflux disease) Gout Hyperlipidemia Hyperuricemia Intractable low back pain L1 vertebral fracture Leukocytosis Lower extremity edema Lung abscess Morbid obesity Muscle spasm Noncompliance with CPAP treatment Obesity Obesity (BMI 30-39.9) Obstructive sleep apnea On home O2 Osteopenia Osteoporosis Osteoporosis Overactive bladder Paroxysmal atrial fibrillation Pneumonia Right bundle branch block (RBBB) Sarcoidosis Secondary pulmonary arterial hypertension Type 2 diabetes mellitus Venous insufficiency of both lower extremities Home Medications fluticasone propionate 50 mcg/actuation nasal spray,suspension 2 spray NASAL DAILY PRN PRN Congestion 06/21/17 [History Last Taken 11/19/20] febuxostat 40 mg tablet (Uloric) 40 mg PO DAILY gout 12/30/18 [History Last Taken 11/19/20] fluticasone 500 mcg-salmeterol 50 mcg/dose blistr powdr for inhalation (Advair Diskus) 1 inh inhalation BID SOB 07/17/20 [History Last Taken 11/19/20] acetaminophen 650 mg tablet,extended release (Tylenol Arthritis Pain) 650 mg PO Q12H 02/08/21 [History Last Taken Unknown] albuterol sulfate 90 mcg/actuation aerosol inhaler 2 puff inhalation Q4H PRN sob 02/08/21 [History Last Taken Unknown] aspirin 81 mg tablet,delayed release 81 mg PO DAILY #1 TAB 02/08/21 [Rx Last Taken Unknown] pantoprazole 40 mg tablet,delayed release 40 mg PO BID GERD 02/08/21 [History Last Taken Unknown] loratadine 10 mg tablet (Claritin) 10 mg PO DAILY Allergy 01/14/22 [History Last Taken Unknown] mirabegron 50 mg tablet,extended release 24 hr (Myrbetriq) 50 mg PO DAILY overactive bladder 01/14/22 [History Last Taken Unknown] tiotropium bromide 1.25 mcg/actuation mist for inhalation (Spiriva Respimat) 2 puff inhalation DAILY 01/14/22 [History Last Taken Unknown] fenofibrate nanocrystallized 145 mg tablet (Tricor) 145 mg PO DAILY Cholesterol 10/16/22 [History Last Taken Unknown] budesonide 0.5 mg/2 mL suspension for nebulization 0.5 mg inhalation BID 12/11/22 [History Last Taken Unknown] cholecalciferol (vitamin D3) 25 mcg (1,000 unit) tablet 5,000 unit PO DAILY supplement 12/11/22 [History Last Taken Unknown] insulin aspart U-100 100 unit/mL (3 mL) subcutaneous pen (Novolog FlexPen U-100 Insulin aspart) See Rx Instructions subcut TID 12/11/22 [History Last Taken Unknown] insulin glargine 100 unit/mL (3 mL) subcutaneous pen 38 unit subcut QPM DM 12/11 [History Last Taken Unknown] levalbuterol HCl 0.63 mg/3 mL solution for nebulization 0.63 mg inhalation Q6H PRN wheeze 12/11/22 [History Last Taken Unknown] lidocaine 5 % topical patch 2 patch topical DAILY pain 12/11/22 [History Last Taken Unknown] pen needle, diabetic 32 gauge x 5/32 (BD Ultra-Fine Sonam Pen Needle) #400 ea 01/22/23 [Rx Last Taken Unknown] flash glucose sensor (FreeStyle Garett 2 Sensor kit) #1 ea 02/19/23 [Rx Last Taken Unknown] linaclotide 72 mcg capsule (Linzess) 72 mcg PO DAILY IBS 02/22/23 [History Last Taken Unknown] montelukast 10 mg tablet (Singulair) 10 mg PO DAILY 02/22/23 [History Last Taken Unknown] ipratropium 0.5 mg-albuterol 3 mg (2.5 mg base)/3 mL nebulization soln 3 ml inhalation BID PRN wheezing #180 mL 02/24/23 [Rx Last Taken Unknown] sodium chloride 0.65 % nasal spray aerosol (Deep Sea Nasal) 2 spray NASAL TID PRN PRN NASAL DRYNESS #0 mL 02/24/23 [Rx Last Taken Unknown] diltiazem HCl 180 mg capsule,24 hr,extended release (Tiazac) 180 mg PO DAILY 03/03/23 [History Last Taken Unknown] omeprazole 20 mg capsule,delayed release 20 mg PO DAILY 03/03/23 [History Last Taken Unknown] torsemide 20 mg tablet mg PO 03/03/23 [History Last Taken Unknown] tramadol 50 mg tablet 50 mg PO 03/03/23 [History Last Taken Unknown] azithromycin 500 mg tablet 500 mg PO DAILY 3 days #3 tabs 03/05/23 [Rx Last Taken Unknown] Allergy/AdvReac Type Severity Reaction Status Date / Time doxycycline Allergy Intermediate GI problems Verified 03/05/23 12:58 clindamycin Allergy Rash Verified 03/05/23 12:58 insulin detemir Allergy Rash Verified 03/05/23 12:58 [From Levemir U-100 Insulin] ciprofloxacin AdvReac Mild Upset Verified 03/05/23 12:58 Stomach amoxicillin trihydrate AdvReac Nausea Verified 03/05/23 12:58 [From Augmentin] morphine AdvReac Nausea Verified 03/05/23 12:58 potassium clavulanate AdvReac Nausea Verified 03/05/23 12:58 [From Augmentin] Family History Father Hypertension Colon cancer Cancer lung Mother Hypertension Heart disease Diabetes Surgical History History of cholecystectomy History of knee replacement procedure of left knee History of laminectomy History of right and left heart catheterization (05/04/20) Social History Smoking Status: Former smoker how long ago did patient quit smokin years ago alcohol intake: never substance use type: does not use caffeine: Yes Type: coffee Number of servings: 2 ROS ROS ED ROS Narrative Constitutional: No fever, no chills. HEENT: No sore throat. No neck pain. No loss of vision. Positive rhinorrhea and sinus drainage down back of throat. Cardiovascular: No chest pain. No palpitations. No pedal edema. Respiratory: Occasional cough, increasing shortness of breath. Abdominal: No abdominal pain. No nausea. No vomiting. Genitourinary: No dysuria. No hematuria. Musculoskeletal: No myalgias. No arthralgias. Neurologic: No headaches. No dizziness. No lightheadedness. Skin: No rash. No change in color. Psychiatric: No depression. No anxiety. EXAM Physical Exam Narrative Exam Narrative: Afebrile. Vital signs noted. Nontoxic-appearing. HEENT: Normocephalic. Atraumatic. PERRL, EOMI. Neck soft and supple. No point tenderness or step off. Cardiovascular: Regular rate and rhythm. No murmurs, rubs, or gallops appreciated. Respiratory: No tachypnea. Positive expiratory wheezing. Gastrointestinal: Abdomen soft, nontender, with normoactive bowel sounds. No rebound or guarding. Neurological: Awake. Alert. Nonfocal, nonlateralizing. Skin: No rash. Normal color. No pallor. Musculoskeletal: No pedal edema. Full range of motion extremities. Const Vital Signs: 03/05/23 12:54 03/05/23 13:28 03/05/23 13:52 Temperature 97 F L Temperature Source Temporal Pulse Rate 82 80 Respiratory Rate 16 20 H Respiratory Effort Short of Breath Blood Pressure 153/65 H Blood Pressure Mean 94 Pulse Ox 96 Oxygen Delivery Method Room Air Oxygen Flow Rate (L/min) 03/05/23 14:40 Temperature 97 F L Temperature Source Temporal Pulse Rate 78 Respiratory Rate 20 H Respiratory Effort Blood Pressure 160/66 H Blood Pressure Mean 97 Pulse Ox 95 Oxygen Delivery Method Nasal Cannula Oxygen Flow Rate (L/min) 3 MDM MDM MDM Narrative Medical decision making narrative: I reviewed the patient's prior inpatient record and ED visits. She did have acute kidney injury at that time, and was hypoxic with ambulation on 4 L of nasal cannula oxygen. She was sent home on a prednisone burst of 40 mg for 5 days but did not start taking it until today. She also had an elevated BNP in the 500s at that time. While she is satting well on her home oxygen here, the concern at that time over 9 days ago was secondary bacterial infection from a viral pneumonia. She did have a chest x-ray which showed bilateral infiltrates. I will repeat a chest x-ray to look for worsening pneumonia and obtain laboratory work to check her kidney function, and CHF also. She was swabbed for COVID and influenza. EKG was obtained and interpreted by myself which demonstrates normal sinus rhythm at 75 bpm without ectopy or acute ST change, no STEMI. There is no significant change from an EKG dated February 22, 2023. I reviewed her current laboratory studies that have resulted and her BNP is 174.7, lower than it was a few weeks ago in the 500s in review of her prior labs. Chest x-ray obtained and interpreted by myself shows no consolidation. I reviewed the radiology report which comments on vascular congestion and mild degree of CHF and cardiomegaly with blunting of the left costophrenic angle, but once again her BNP is lower than it was before. She will continue any medications for her congestive heart failure. In discussion with the patient, she is concerned about her sinusitis and postnasal drip causing her insomnia. She has tried melatonin to help her sleep. I do not feel that prescription sleep aids would be of benefit given her respiratory status and oxygen requirement. Additionally, we discussed the use of antibiotics, and she has been using Mucinex and nasal steroids along with saline wash, and is mildly insistent that nothing is working. I will write her for an azithromycin Tri-Ramón but she should continue the medications that she is currently using for her sinusitis. She was able to ambulate to the bathroom, and experienced a slight dip in her pulse ox to 91%, but is coming back up to 94 to 95% on 3 L nasal cannula. At this point in time, she does not want to be readmitted to the hospital, and I do not feel that it would benefit her. She will continue her medications. In review of her laboratory work, she does have a leukocytosis of 12.7 which I think is nonspecific, it might be slight elevation from her steroid use, or she could have the infectious upper respiratory infection type symptoms. In review of her BMP, she has a chronic kidney injury with a creatinine of 1.71 and a BUN of 51, but this is below her baseline as her creatinine has been elevated in the twos before. In review of her laboratory work additionally, she has a glucose elevated at 157 but a normal anion gap of 5. I am not concerned for diabetic ketoacidosis. At this point in time, I feel she can be discharged safely home with follow-up. She will continue her current medications and take the azithromycin Tri-Ramón for her sinusitis. She will follow-up with her primary care provider Dr. Gross. Sissy see instructions to the emergency department were reviewed. Patient and are agreeable to the plan. Disposition is discharged home in stable condition. History & Record Review Discussion w/independent historian: Patient and Family Additional record(s) reviewed:: Prior inpatient record, Prior ED visit and Prior labs Lab Data Attestation: I reviewed the patient's lab results. Labs: Laboratory Results - last 24 hr 03/05/23 03/05/23 03/05/23 13:45 13:55 14:20 WBC 12.7 H RBC 3.14 L Hgb 9.6 L Hct 30.8 L MCV 98.1 MCH 30.6 MCHC 31.2 L RDW Std Deviation 51.9 H RDW Coeff of Jazzmine 14.4 Plt Count 219 MPV 9.3 Neut % (Auto) Not Reportable Sodium 141 Potassium 4.7 Chloride 107 Carbon Dioxide 29.0 Anion Gap 5 BUN 51 H Creatinine 1.71 H Estim Creat Clear Calc 46.63 Est GFR (MDRD) Af Amer 38 L Est GFR (MDRD) Non-Af 31 L BUN/Creatinine Ratio 29.8 H Glucose 157 H Calcium 9.2 B-Natriuretic Peptide 174.7 H Radiography Diagnostic Testing: Clinical Impression(s) from Imaging Studies Chest X-Ray 03/05/23 14:08 IMPRESSION: Vascular congestion and mild degree of CHF. Cardiomegaly. Blunting of the left costophrenic angle. Electronically Signed: Anam Larios MD at 14:23 EDT , Discharge Plan Triage Chief Complaint: Shortness of Breath ED Provider: Jarocho Cardenas Dx/Rx/DC Orders Clinical Impression: Sinusitis, PND (post-nasal drip), SOB (shortness of breath), COPD (chronic obstructive pulmonary disease) Instructions: ED COPD Flare, ED Dyspnea, ED Sinusitis (Antibiotic Treatment) Prescriptions: New azithromycin 500 mg tablet 500 mg PO DAILY 3 Days Qty: 3 0RF No Action fluticasone propion-salmeterol [Advair Diskus] 500-50 mcg/dose blister with device 1 inh INHALATION BID albuterol sulfate 90 mcg/actuation HFA aerosol inhaler 2 puff INHALATION Q4H PRN (Reason: sob) acetaminophen [Tylenol Arthritis Pain] 650 mg tablet extended release 650 mg PO Q12H aspirin 81 mg tablet,delayed release (DR/EC) 81 mg PO DAILY Qty: 1 0RF levalbuterol HCl 0.63 mg/3 mL solution for nebulization 0.63 mg inhalation Q6H PRN (Reason: wheeze) lidocaine 5 % adhesive patch,medicated 2 patch topical DAILY Rx Instructions: leave on most painful area for up to 12 hrs insulin glargine 100 unit/mL (3 mL) insulin pen 38 unit SC QPM budesonide 0.5 mg/2 mL suspension for nebulization 0.5 mg inhalation BID insulin aspart U-100 [Novolog FlexPen U-100 Insulin] 100 unit/mL (3 mL) insulin pen See Rx Instructions subcut TID Rx Instructions: 07-07-17 with meals subcut three times a day; fenofibrate nanocrystallized [Tricor] 145 mg tablet 145 mg PO DAILY torsemide 20 mg tablet PO diltiazem HCl [Tiazac] 180 mg capsule,extended release 24 hr 180 mg PO DAILY tramadol 50 mg tablet 50 mg PO omeprazole 20 mg capsule,delayed release(DR/EC) 20 mg PO DAILY fluticasone propionate 1 SPRAY spray,suspension 2 spray NASAL DAILY PRN PRN (Reason: Congestion) febuxostat [Uloric] 40 MG tablet 40 mg PO DAILY cholecalciferol (vitamin D3) 25 mcg (1,000 unit) tablet 5,000 unit PO DAILY pantoprazole 40 mg tablet,delayed release (DR/EC) 40 mg PO BID loratadine [Claritin] 10 mg Tablet 10 mg PO DAILY Myrbetriq 50 mg Tablet Extended Release 24 Hr 50 mg PO DAILY Spiriva Respimat 1.25 mcg/actuation Mist 2 puff INHALATION DAILY montelukast [Singulair] 10 mg Tablet 10 mg PO DAILY Linzess 72 mcg Capsule 72 mcg PO DAILY Deep Sea Nasal 0.65 % Aerosol,[place] 2 spray NASAL TID PRN PRN (Reason: NASAL DRYNESS) Qty: 0 0RF ipratropium-albuterol 0.5 mg-3 mg(2.5 mg base)/3 mL solution for nebulization 3 ml inhalation BID PRN (Reason: wheezing) Qty: 180 0RF (DME) pen needle, diabetic [BD Ultra-Fine Sonam Pen Needle] 32 gauge x 5/32 needle See Rx Instructions .ROUTE .MEDSUPPLY Qty: 400 3RF Rx Instructions: 4times daily (DME) FreeStyle Garett 2 Sensor Kit See Rx Instructions .ROUTE .MEDSUPPLY Qty: 1 0RF Rx Instructions: 1 sensor q 14 days Primary Care Provider: Veronica Oquendo Referrals: Veronica Oquendo DO [Primary Care Provider] - 3-5 Days if not improving Disposition Disposition: Home, Self Care
[2023-03-05] MEDS: Ipratropium/Albuterol Sulfate 3 ML AMPUL.NEB INHALATION (13:51)
[2023-03-05 13:52] VITALS: PULSE 80; RESP 20
[2023-03-05] MEDS: MethylPREDNISolone 125 MG/2 ML Vial 60 MG IV (14:04)
--- NOTE | 2023-03-05 14:08 | RAD_ITS ---
STUDY: X-RAY CHEST REASON FOR EXAM: Female, 72 years old. Shortness of breath TECHNIQUE: Single AP portable view of the chest. COMPARISON: Comparison is made with prior study February 22, 2023. FINDINGS: EKG electrodes are seen. Vascular congestion and mild degree of CHF. Blunting of the left cosmetic angle. There is moderate cardiac enlargement. Normal mediastinum and arthur. Normal visualized pulmonary arteries. Normal visualized aortic arch and descending thoracic aorta. Normal visualized thoracic spine. Normal visualized ribs, clavicles, and shoulders. There is no demonstrated abnormality of the visualized soft tissue structures of the upper abdomen. RAD/Chest 1 View (Portable) IMPRESSION: Vascular congestion and mild degree of CHF. Cardiomegaly. Blunting of the left costophrenic angle. Electronically Signed: Anam Larios MD at 14:23 EDT ,
[2023-03-05 14:23] LABS: BNP,B-Type NATRIURETIC PEPTIDE 174.7 pg/mL (0-100)
[2023-03-05 14:40] VITALS: BP 160/66; PULSE 78; RESP 20; TEMP 36.1; O2SAT 95
[2023-03-05 14:42] LABS: Hematocrit 30.8 % (37-47); Hemoglobin 9.6 g/dL (12.0-15.0); Mean Corp Hgb Conc 31.2 g/dL (32-36); Mean Corpuscular Hgb 30.6 pg (27.0-32.0); Mean Corpuscular Volume 98.1 fL (81-99); Mean Platelet Vol. 9.3 fl (6.2-12.0); POSITIVE COUNT YES; POSITIVE DIFFERENTIAL YES; POSITIVE MORPHOLOGY YES; Platelet Count 219 K/mm3 (150-450); RBC Distribution Width CV 14.4 % (11.6-14.6); RBC Distribution Width SD 51.9 fl (35.1-43.9); Red Blood Count 3.14 M/mm3 (4.2-5.4); White Blood Count 12.7 K/mm3 (4.4-11.0)
[2023-03-05 14:58] LABS: Anion Gap 5 (5-15); BUN 51 mg/dL (7-18); BUN/Creat Ratio 29.8 RATIO (10-20); Calcium,Total 9.2 mg/dL (8.5-10.1); Chloride 107 mmol/L (98-107); Creatinine, Serum 1.71 mg/dL (0.55-1.02); EST Glomerular Filtration Rate 31 mL/min (>60); Est Glom Filt Rate - Afr Amer 38 mL/min (>60); Estimated Creatinine Clearance 46.63 ml/min; Glucose 157 mg/dL (74-106); Potassium 4.7 mmol/L (3.5-5.1); Sodium Level 141 mmol/L (136-145)
[2023-03-05 14:58] LABS: Differential Indicated MANUAL DIFF
[2023-03-05 15:47] LABS: Lymphocyte 4 % (19-41); Metamyelocyte 4 % (0-1); Monocyte 1 % (0-10); Myelocyte 1 % (0-0); Neutrophil-Band 5 % (0-5); Neutrophil-Segmented 85 % (47-70); Total Cells Counted 100 (MANUAL DIFF)
[2023-03-05 15:48] LABS: Platelet Estimate ADEQUATE (ADEQ); Red Cell Morphology NORM C+C NORMAL (NORM C&C)
[2023-03-05 17:57] LABS: Absolute Lymphocyte Count 0.51 X10^3/uL (0.83-4.51); Absolute Neutrophil Count 12.1 X10^3/uL (2.0-7.7); Lymphocyte # 0.51 X10^3/ul (0.83-4.51); Neutrophil # 12.07 X10^3/uL (2.7-7.7)
[2023-03-06 13:01] LABS: Pathologist Review Reviewed
== END 2023-03-05 15:23 | disposition home or self-care (01) ==
PROVIDERS: Emergency Provider Emergency Medicine; PCP Internal Medicine; Visit Provider Emergency Medicine
DX: J32.9 Chronic sinusitis, unspecified (principal); J44.9 Chronic obstructive pulmonary disease, unspecified; I50.9 Heart failure, unspecified; I13.0 Hypertensive heart and chronic kidney disease with heart failure and stage 1 through stage 4 chronic kidney disease, or unspecified chronic kidney disease; E11.22 Type 2 diabetes mellitus with diabetic chronic kidney disease; N18.30 Chronic kidney disease, stage 3 unspecified; E78.5 Hyperlipidemia, unspecified; Z87.891 Personal history of nicotine dependence; R06.02 Shortness of breath; Z99.81 Dependence on supplemental oxygen; E66.9 Obesity, unspecified
CPT/HCPCS: 71045; 80048; 83880; 85025; 87428; 93005; 94640; 96374; 99283; A4216

== ENCOUNTER 2023-03-08 23:07 | Emergency (ER) | payer MEDICARE, OTHER, SELFPAY ==
[2022-07-11 11:12] VITALS: BMI 40.4
[2023-03-08 23:08] VITALS: BP 159/74; PULSE 75; RESP 16; TEMP 36.6; O2SAT 98; BMI 48.2
--- NOTE | 2023-03-08 23:17 | CT_ITS ---
INDICATION: headache, intractable sinus sx -- include sinuses please EXAMINATION: CT BRAIN - CT Head or Brain W/O Contrast Injection TECHNIQUE: Serial CT axial images were obtained of the head without intravenous contrast. A radiation dose optimization technique was used for this scan. COMPARISON: 11/14/[address] Findings: Serial CT axial images of the head without contrast. BRAIN PARENCHYMA: Diffuse periventricular hypoattenuation likely chronic white matter ischemic changes. Mild diffuse volume loss. No evidence of intraparenchymal hemorrhage or hyperattenuating extra-axial fluid collection. VASCULAR STRUCTURES: Atherosclerotic vascular calcifications. BONES: Paranasal sinuses are clear. SCALP/REMAINING SOFT TISSUES: Unremarkable. ASPECTS Score for Acute Strokes, if applicable: 10 CT/Brain/Head without Contrast IMPRESSION: Age-related changes as above, without evidence of acute intracranial hemorrhage in this noncontrast head CT. Electronically Signed: Stew Ojeda MD at 0:06 EDT ,
--- NOTE | 2023-03-08 23:22 | EDS_ITS ---
HPI History of Present Illness Chief Complaint: Headache Informant: patient Narrative Narrative: Patient states she has been sick for 2 weeks. She has had postnasal drip, nasal congestion, sinus pressure and pain, headaches, cough, mild increase in her COPD wheezing, no chest pain or fevers/chills. She was seen here 4-5 days ago for the same symptoms, prescribed a Z-Ramón which she just finished, and has been on some prednisone for this illness as well, using nasal sprays and [id number] analgesics, she states nothing is better, she has no new symptoms. She is controlling her wheezing/COPD. Denies any focal neurologic symptoms, confusion. Has a history of sarcoidosis, she is not usually on steroids for that, just now with this illness. She did have contact with a child who had strep throat near the beginning of the illness, she does have some mild sore throat but that is not the most prominent symptom here it is mostly sinuses and headache and postnasal drip that is making me short of breath. She started the prednisone prior to her ED visit here recently. She was admitted to the hospital prior to this illness and had been on IV antibiotics for pneumonia versus fluid overload. [facility] Medical History Allergic rhinitis Asthma Chronic kidney disease Chronic obstructive lung disease Chronic renal failure, stage 3 (moderate) Compression fracture of L1 vertebra Constipation COVID-19 Debility Diabetes Diabetes mellitus type 2 in obese Dysphagia Essential (primary) hypertension GERD (gastroesophageal reflux disease) Gout Hyperlipidemia Hyperuricemia Intractable low back pain L1 vertebral fracture Leukocytosis Lower extremity edema Lung abscess Morbid obesity Muscle spasm Noncompliance with CPAP treatment Obesity Obesity (BMI 30-39.9) Obstructive sleep apnea On home O2 Osteopenia Osteoporosis Osteoporosis Overactive bladder Paroxysmal atrial fibrillation Pneumonia Right bundle branch block (RBBB) Sarcoidosis Secondary pulmonary arterial hypertension Type 2 diabetes mellitus Venous insufficiency of both lower extremities Home Medications fluticasone propionate 50 mcg/actuation nasal spray,suspension 2 spray NASAL DAILY PRN PRN Congestion 06/21/17 [History Last Taken 11/19/20] febuxostat 40 mg tablet (Uloric) 40 mg PO DAILY gout 12/30/18 [History Last Taken 11/19/20] fluticasone 500 mcg-salmeterol 50 mcg/dose blistr powdr for inhalation (Advair Diskus) 1 inh inhalation BID SOB 07/17/20 [History Last Taken 11/19/20] acetaminophen 650 mg tablet,extended release (Tylenol Arthritis Pain) 650 mg PO Q12H 02/08/21 [History Last Taken Unknown] albuterol sulfate 90 mcg/actuation aerosol inhaler 2 puff inhalation Q4H PRN sob 02/08/21 [History Last Taken Unknown] aspirin 81 mg tablet,delayed release 81 mg PO DAILY #1 TAB 02/08/21 [Rx Last Taken Unknown] pantoprazole 40 mg tablet,delayed release 40 mg PO BID GERD 02/08/21 [History Last Taken Unknown] loratadine 10 mg tablet (Claritin) 10 mg PO DAILY Allergy 01/14/22 [History Last Taken Unknown] mirabegron 50 mg tablet,extended release 24 hr (Myrbetriq) 50 mg PO DAILY overactive bladder 01/14/22 [History Last Taken Unknown] tiotropium bromide 1.25 mcg/actuation mist for inhalation (Spiriva Respimat) 2 puff inhalation DAILY 01/14/22 [History Last Taken Unknown] fenofibrate nanocrystallized 145 mg tablet (Tricor) 145 mg PO DAILY Cholesterol 10/16/22 [History Last Taken Unknown] budesonide 0.5 mg/2 mL suspension for nebulization 0.5 mg inhalation BID 12/11/22 [History Last Taken Unknown] cholecalciferol (vitamin D3) 25 mcg (1,000 unit) tablet 5,000 unit PO DAILY supplement 12/11/22 [History Last Taken Unknown] insulin aspart U-100 100 unit/mL (3 mL) subcutaneous pen (Novolog FlexPen U-100 Insulin aspart) See Rx Instructions subcut TID 12/11/22 [History Last Taken Unknown] insulin glargine 100 unit/mL (3 mL) subcutaneous pen 38 unit subcut QPM DM 12/11/22 [History Last Taken Unknown] levalbuterol HCl 0.63 mg/3 mL solution for nebulization 0.63 mg inhalation Q6H PRN wheeze 12/11/22 [History Last Taken Unknown] lidocaine 5 % topical patch 2 patch topical DAILY pain 12/11/22 [History Last Taken Unknown] pen needle, diabetic 32 gauge x 5/32 (BD Ultra-Fine Sonam Pen Needle) #400 ea 01/22/23 [Rx Last Taken Unknown] flash glucose sensor (FreeStyle Garett 2 Sensor kit) #1 ea 02/19/23 [Rx Last Taken Unknown] linaclotide 72 mcg capsule (Linzess) 72 mcg PO DAILY IBS 02/22/23 [History Last Taken Unknown] montelukast 10 mg tablet (Singulair) 10 mg PO DAILY 02/22/23 [History Last Taken Unknown] ipratropium 0.5 mg-albuterol 3 mg (2.5 mg base)/3 mL nebulization soln 3 ml inhalation BID PRN wheezing #180 mL 02/24/23 [Rx Last Taken Unknown] sodium chloride 0.65 % nasal spray aerosol (Deep Sea Nasal) 2 spray NASAL TID PRN PRN NASAL DRYNESS #0 mL 02/24/23 [Rx Last Taken Unknown] diltiazem HCl 180 mg capsule,24 hr,extended release (Tiazac) 180 mg PO DAILY 03/03/23 [History Last Taken Unknown] omeprazole 20 mg capsule,delayed release 20 mg PO DAILY 03/03/23 [History Last Taken Unknown] torsemide 20 mg tablet mg PO 03/03/23 [History Last Taken Unknown] tramadol 50 mg tablet 50 mg PO 03/03/23 [History Last Taken Unknown] azithromycin 500 mg tablet 500 mg PO DAILY 3 days #3 tabs 03/05/23 [Rx Last Taken Unknown] Allergy/AdvReac Type Severity Reaction Status Date / Time doxycycline Allergy Intermediate GI problems Verified 03/08/23 23:08 clindamycin Allergy Rash Verified 03/08/23 23:08 insulin detemir Allergy Rash Verified 03/08/23 23:08 [From Levemir U-100 Insulin] ciprofloxacin AdvReac Mild Upset Verified 03/08/23 23:08 Stomach amoxicillin trihydrate AdvReac Nausea Verified 03/08/23 23:08 [From Augmentin] morphine AdvReac Nausea Verified 03/08/23 23:08 potassium clavulanate AdvReac Nausea Verified 03/08/23 23:08 [From Augmentin] Family History Father Hypertension Colon cancer Cancer lung Mother Hypertension Heart disease Diabetes Surgical History History of cholecystectomy History of knee replacement procedure of left knee History of laminectomy History of right and left heart catheterization (05/04/20) Social History Smoking Status: Former smoker how long ago did patient quit smokin years ago alcohol intake: never substance use type: does not use caffeine: Yes Type: coffee Number of servings: 2 ROS ROS ED Constitutional Constitutional ED: Denies chills or fever(s) Eyes Eyes: Denies blurry vision, change in vision or diplopia ENT ENT ED: Reports as per HPI, facial pain, headache(s), nasal congestion, post nasal drip, rhinorrhea, sinus pain and sore throat; Denies dizziness, ear pain, loss taste/smell, throat swelling, tongue swelling or vertigo Cardiovascular Cardiovascular: Denies chest pain or palpitations Respiratory/Chest Respiratory/Chest: Reports cough and dyspnea Gastrointestinal Gastrointestinal: Denies abdominal pain, diarrhea, nausea or vomiting Genitourinary Genitourinary ED: Denies dysuria or hematuria Musculoskeletal Musculoskeletal: Denies myalgias or neck pain Integumentary Denies abscess or rash Neurologic Neurologic: Reports headache(s); Denies paresthesias or weakness Psychiatric Psychiatric: Denies depression or suicidal thoughts Endocrine Endocrinology: Denies polydipsia or polyuria EXAM Physical Exam Const Vital Signs: 03/08/23 23:08 Temperature 97.8 F Temperature Source Oral Pulse Rate 75 Respiratory Rate 16 Blood Pressure 159/74 H Blood Pressure Mean 102 Pulse Ox 98 Oxygen Delivery Method Room Air Positive well nourished, well developed and obese General Appearance ED: well developed and NAD Nutritional Appearance: obese HEENT Reports TM's clear and moist mucous membranes HEENT Narrative: Diffuse sinus tenderness bilaterally. Normal inspection of face. No purulent nasal discharge. Posterior oropharynx normal except for slight erythema tonsillar pillars no petechiae or exudates or asymmetry. No trismus. No sublingual edema or tongue elevation. No stridor. Normal voice. normocephalic and atraumatic Tympanic Membrane ED: Yes TM's clear Throat: Negative for posterior oropharynx abnormal Eyes PERRL and EOMs intact bilaterally Neck no lymphadenopathy, supple and no meningeal signs Resp normal respiratory effort and clear to auscultation bilaterally Resp Narrative: Diminished throughout, clear, prolonged expiratory phase Effort and Inspection: able to speak in complete sentences Cardio no murmurs Rate: regular rate; Negative for tachycardic Rhythm: regular rhythm GI non-tender and non-distended Extremity normal to inspection and full ROM Neuro oriented x3, CN's II-XII intact bilaterally and no sensory deficits noted Sensorium / Orientation: alert Motor Exam: strength 5/5 throughout Psych Mood & Affect: anxious Skin Lesions: no lesions Rashes: no rashes MDM MDM MDM Narrative Medical decision making narrative: Patient had a chest x-ray that showed no acute consolidation/pneumonia days ago, she does not have any new or worsening chest symptoms so I do not think we need to repeat that. I reviewed her labs from before. I think it would be reasonable to obtain a CT of the head including the sinuses, to see if she has sphenoid involvement, or any obvious bacterial-suggesting findings. I do not think we need to repeat the rest of the work-up, her vital signs are essentially normal except for mild hypertension, and she really is focusing on her face and head as far as those symptoms are concerned right now. The CT appears unremarkable. I reviewed the images and the radiologist's interpretation, and I agree with it. He agrees that there is no evidence of paranasal sinus disease and the CT of the brain is unremarkable as well. I discussed all of this with the patient. I do not think she needs any other tests right now, but I do think it would be reasonable for us to send a viral respiratory panel off before she is discharged. I reviewed the ones she had from several days ago. She is fatigued because she has not been sleeping, at least in great part. I offered her a [place] here to help with her facial pain and to help her sleep tonight, she is amenable to that, she is following up with her PCP on Thursday tonight is Thursday, she is already taking Claritin, prednisone, Mucinex, saline nasal wash, and I do not think I would change any of this. Discussed at length with her and her . History & Record Review Additional record(s) reviewed:: Prior inpatient record, Prior outpatient record, Prior ED visit and Prior labs Radiography Diagnostic Testing: Clinical Impression(s) from Imaging Studies Brain CT 03/08/23 23:17 IMPRESSION: Age-related changes as above, without evidence of acute intracranial hemorrhage in this noncontrast head CT. Electronically Signed: Stew Ojeda MD at 0:06 EDT , Discharge Plan Triage Chief Complaint: Headache ED Provider: Rafael Gates Dx/Rx/DC Orders Clinical Impression: Viral URI with cough Instructions: ED URI, Viral, No Abx (Adult) Prescriptions: No Action fluticasone propion-salmeterol [Advair Diskus] 500-50 mcg/dose blister with device 1 inh INHALATION BID albuterol sulfate 90 mcg/actuation HFA aerosol inhaler 2 puff INHALATION Q4H PRN (Reason: sob) acetaminophen [Tylenol Arthritis Pain] 650 mg tablet extended release 650 mg PO Q12H aspirin 81 mg tablet,delayed release (DR/EC) 81 mg PO DAILY Qty: 1 0RF levalbuterol HCl 0.63 mg/3 mL solution for nebulization 0.63 mg inhalation Q6H PRN (Reason: wheeze) lidocaine 5 % adhesive patch,medicated 2 patch topical DAILY Rx Instructions: leave on most painful area for up to 12 hrs insulin glargine 100 unit/mL (3 mL) insulin pen 38 unit SC QPM budesonide 0.5 mg/2 mL suspension for nebulization 0.5 mg inhalation BID insulin aspart U-100 [Novolog FlexPen U-100 Insulin] 100 unit/mL (3 mL) insulin pen See Rx Instructions subcut TID Rx Instructions: 07-07-17 with meals subcut three times a day; fenofibrate nanocrystallized [Tricor] 145 mg tablet 145 mg PO DAILY torsemide 20 mg tablet PO diltiazem HCl [Tiazac] 180 mg capsule,extended release 24 hr 180 mg PO DAILY tramadol 50 mg tablet 50 mg PO omeprazole 20 mg capsule,delayed release(DR/EC) 20 mg PO DAILY fluticasone propionate 1 SPRAY spray,suspension 2 spray NASAL DAILY PRN PRN (Reason: Congestion) febuxostat [Uloric] 40 MG tablet 40 mg PO DAILY cholecalciferol (vitamin D3) 25 mcg (1,000 unit) tablet 5,000 unit PO DAILY pantoprazole 40 mg tablet,delayed release (DR/EC) 40 mg PO BID loratadine [Claritin] 10 mg Tablet 10 mg PO DAILY Myrbetriq 50 mg Tablet Extended Release 24 Hr 50 mg PO DAILY Spiriva Respimat 1.25 mcg/actuation Mist 2 puff INHALATION DAILY montelukast [Singulair] 10 mg Tablet 10 mg PO DAILY Linzess 72 mcg Capsule 72 mcg PO DAILY Deep Sea Nasal 0.65 % Aerosol,[place] 2 spray NASAL TID PRN PRN (Reason: NASAL DRYNESS) Qty: 0 0RF ipratropium-albuterol 0.5 mg-3 mg(2.5 mg base)/3 mL solution for nebulization 3 ml inhalation BID PRN (Reason: wheezing) Qty: 180 0RF azithromycin 500 mg tablet 500 mg PO DAILY 3 Days Qty: 3 0RF (DME) pen needle, diabetic [BD Ultra-Fine Sonam Pen Needle] 32 gauge x 5/32 needle See Rx Instructions .ROUTE .MEDSUPPLY Qty: 400 3RF Rx Instructions: 4times daily (DME) FreeStyle Garett 2 Sensor Kit See Rx Instructions .ROUTE .MEDSUPPLY Qty: 1 0RF Rx Instructions: 1 sensor q 14 days Primary Care Provider: Veronica Oquendo Referrals: Veronica Oquendo DO [Primary Care Provider] - Keep [facility] appointment Activity Restrictions/Additional Instructions: May also discussed with Dr. Oquendo about reviewing viral panel results Disposition Disposition: Home, Self Care
[2023-03-09] MEDS: HYDROcodone Bitartrate/Apap 5/325 Tablet PO (00:42)
== END 2023-03-09 01:08 | disposition home or self-care (01) ==
PROVIDERS: Emergency Provider Emergency Medicine; PCP Internal Medicine; Visit Provider Emergency Medicine
DX: J06.9 Acute upper respiratory infection, unspecified (principal); J44.9 Chronic obstructive pulmonary disease, unspecified; E11.22 Type 2 diabetes mellitus with diabetic chronic kidney disease; N18.30 Chronic kidney disease, stage 3 unspecified; R51.9 Headache, unspecified; I12.9 Hypertensive chronic kidney disease with stage 1 through stage 4 chronic kidney disease, or unspecified chronic kidney disease; R53.83 Other fatigue; Z87.891 Personal history of nicotine dependence; E78.5 Hyperlipidemia, unspecified; E66.9 Obesity, unspecified
CPT/HCPCS: 70450; 87633; 99284

== ENCOUNTER → 2023-03-09 | Outpatient (CLI) | payer MEDICARE, OTHER, SELFPAY ==
[2022-07-11 11:12] VITALS: BMI 40.4
[2023-03-09 17:42] LABS: Hemoglobin 9.6 g/dL (12.0-15.0); Mean Corpuscular Hgb 30.6 pg (27.0-32.0); Mean Corpuscular Volume 101.9 fL (81-99); Mean Platelet Vol. 9.9 fl (6.2-12.0); Platelet Count 184 K/mm3 (150-450); RBC Distribution Width CV 14.7 % (11.6-14.6); Red Blood Count 3.14 M/mm3 (4.2-5.4); White Blood Count 11.7 K/mm3 (4.4-11.0)
[2023-03-09 17:49] LABS: Microalbumin,Random Urine 33.3 mg/L (NO RANGE EST.); Microalbumin:Creatinine Ratio 90.2 mg/g CRE (<30 mg/g CRE)
[2023-03-09 17:53] LABS: Albumin, Serum 3.2 g/dL (3.2-5.0); BUN 46 mg/dL (7-18); BUN/Creat Ratio 27.9 RATIO (10-20); Calcium,Total 9.4 mg/dL (8.5-10.1); Chloride 109 mmol/L (98-107); Creatinine, Serum 1.65 mg/dL (0.55-1.02); EST Glomerular Filtration Rate 33 mL/min (>60); Est Glom Filt Rate - Afr Amer 39 mL/min (>60); Glucose 58 mg/dL (74-106); Magnesium 1.8 mg/dL (1.6-2.6); Phosphorus 2.4 mg/dL (2.5-4.9); Potassium 4.6 mmol/L (3.5-5.1); Sodium Level 144 mmol/L (136-145); Uric Acid 4.2 mg/dL (2.6-6.0)
[2023-03-09 17:56] LABS: Vitamin D,25 Hydroxy 64.4 ng/mL
[2023-03-10 08:04] LABS: PTHIN 89.9 pg/mL (18.4-80.1)
== END | disposition home or self-care (01) ==
PROVIDERS: PCP Internal Medicine; Referring Provider Internal Medicine Nephrology; Visit Provider Internal Medicine Nephrology
DX: N18.4 Chronic kidney disease, stage 4 (severe) (principal); M10.9 Gout, unspecified; E55.9 Vitamin D deficiency, unspecified
CPT/HCPCS: 36415; 80069; 82043; 82306; 82570; 83735; 83970; 84550; 85027

== ENCOUNTER → 2023-03-18 | Outpatient (CLI) | payer MEDICARE, OTHER, SELFPAY ==
[2022-07-11 11:12] VITALS: BMI 40.4
[2023-03-18 09:49] LABS: Bacteria 0 SEEN /hpf (None Seen); Mucous, Urine 0 SEEN /hpf (<or=2+); Red Blood Cells-Urine 0 SEEN /hpf (0-5); Squamous Epithelial Cells - UA 0 SEEN /hpf (5-10); White Blood Cells 0 SEEN /hpf (0-5)
[2023-03-18 12:46] LABS: Hematocrit 33.2 % (37-47); Mean Corp Hgb Conc 30.1 g/dL (32-36); Mean Corpuscular Hgb 30.6 pg (27.0-32.0); Mean Corpuscular Volume 101.5 fL (81-99); Mean Platelet Vol. 9.9 fl (6.2-12.0); POSITIVE COUNT YES; POSITIVE MORPHOLOGY YES; Platelet Count 268 K/mm3 (150-450); RBC Distribution Width CV 14.7 % (11.6-14.6); Red Blood Count 3.27 M/mm3 (4.2-5.4); White Blood Count 6.5 K/mm3 (4.4-11.0)
[2023-03-18 12:49] LABS: Differential Indicated MANUAL DIFF
[2023-03-18 13:15] LABS: Vitamin D,25 Hydroxy 78.2 ng/mL
[2023-03-18 13:26] LABS: Neutrophil-Segmented 75 % (47-70); Total Cells Counted 100 (MANUAL DIFF)
[2023-03-18 13:27] LABS: Anisocytosis 1+; Eosinophil 3 % (0-5); Lymphocyte 12 % (19-41); Metamyelocyte 1 % (0-1); Monocyte 8 % (0-10); Myelocyte 1 % (0-0); Platelet Estimate ADEQUATE (ADEQ)
[2023-03-18 13:28] LABS: Absolute Lymphocyte Count 0.78 X10^3/uL (0.83-4.51); Absolute Neutrophil Count 4.9 X10^3/uL (2.0-7.7); Red Cell Morphology NORM C+C NORMAL (NORM C&C)
[2023-03-18 13:40] LABS: AST(SGOT) 26 U/L (15-37); Alanine Aminotransfer ALT/SGPT 40 U/L (13-56); Albumin, Serum 3.2 g/dL (3.2-5.0); Alkaline Phosphatase 41 U/L (45-117); Anion Gap 5 (5-15); BUN 34 mg/dL (7-18); BUN/Creat Ratio 19.7 RATIO (10-20); Calcium,Total 9.9 mg/dL (8.5-10.1); Chloride 104 mmol/L (98-107); Cholesterol 142 mg/dL (200); Creatinine, Serum 1.73 mg/dL (0.55-1.02); EST Glomerular Filtration Rate 31 mL/min (>60); Est Glom Filt Rate - Afr Amer 37 mL/min (>60); Globulin 3.2 g/dL (2.2-4.2); Glucose 144 mg/dL (74-106); High Density Lipoprotein 44 mg/dL; Potassium 3.7 mmol/L (3.5-5.1); Protein, Total 6.4 g/dL (6.4-8.2); Sodium Level 139 mmol/L (136-145); Thyroid Stim Hormone (TSH) 2.55 uIU/mL (0.358-3.74); Triglycerides 183 mg/dL; Very Low Density Lipoprotein 37 mg/dL (5-40)
[2023-03-18 15:54] LABS: Color, Urine Yellow (Yellow); Glucose, Dipstick Normal (Normal); Ketone-Dipstick Negative (Negative); Leukocyte Esterase-Dipstick Negative /ul (Negative); Nitrite-Dipstick Negative (Negative); Occult Blood-Urine Negative /ul (Negative); Protein-Dipstick Negative (Negative); Specific Gravity, Urine 1.005 (1.002-1.030); Urine Bilirubin Dipstick Negative (Negative); Urine Clarity Clear (Clear); Urine Urobilinogen Normal (Normal)
[2023-03-18 16:32] LABS: Microalbumin:Creatinine Ratio 17.7 mg/g CRE (<30 mg/g CRE)
[2023-03-19 10:36] LABS: Pathologist Review Reviewed
== END | disposition home or self-care (01) ==
LOC: MTLAB 09:45
PROVIDERS: PCP Internal Medicine; Referring Provider Internal Medicine; Visit Provider Internal Medicine
DX: E11.9 Type 2 diabetes mellitus without complications (principal); E78.00 Pure hypercholesterolemia, unspecified; E55.9 Vitamin D deficiency, unspecified
CPT/HCPCS: 36415; 80053; 80061; 81001; 82043; 82306; 82570; 84443; 85025

== ENCOUNTER → 2023-03-26 | Outpatient (CLI) | payer MEDICARE, OTHER, SELFPAY ==
[2022-07-11 11:12] VITALS: BMI 40.4
[2023-03-26 15:17] LABS: Hematocrit 32.5 % (37-47); Hemoglobin 10.1 g/dL (12.0-15.0); Mean Corp Hgb Conc 31.1 g/dL (32-36); Mean Corpuscular Hgb 30.5 pg (27.0-32.0); Mean Corpuscular Volume 98.2 fL (81-99); Mean Platelet Vol. 9.2 fl (6.2-12.0); Platelet Count 262 K/mm3 (150-450); RBC Distribution Width CV 15.1 % (11.6-14.6); RBC Distribution Width SD 54.2 fl (35.1-43.9); Red Blood Count 3.31 M/mm3 (4.2-5.4); White Blood Count 9.1 K/mm3 (4.4-11.0)
[2023-03-26 15:28] LABS: Albumin, Serum 3.3 g/dL (3.2-5.0); BUN 37 mg/dL (7-18); BUN/Creat Ratio 18.4 RATIO (10-20); Calcium,Total 9.7 mg/dL (8.5-10.1); Chloride 104 mmol/L (98-107); Creatinine, Serum 2.01 mg/dL (0.55-1.02); EST Glomerular Filtration Rate 26 mL/min (>60); Est Glom Filt Rate - Afr Amer 31 mL/min (>60); Glucose 239 mg/dL (74-106); Magnesium 1.6 mg/dL (1.6-2.6); Potassium 3.4 mmol/L (3.5-5.1); Sodium Level 140 mmol/L (136-145)
[2023-03-26 15:35] LABS: Vitamin D,25 Hydroxy 80.6 ng/mL
[2023-03-26 15:49] LABS: Microalbumin,Random Urine 13.1 mg/L (NO RANGE EST.); Microalbumin:Creatinine Ratio 14.4 mg/g CRE (<30 mg/g CRE)
[2023-03-27 07:48] LABS: PTHIN 75.7 pg/mL (18.4-80.1)
== END | disposition home or self-care (01) ==
LOC: MTLAB 13:34
PROVIDERS: PCP Internal Medicine; Referring Provider Internal Medicine Nephrology; Visit Provider Internal Medicine Nephrology
DX: N18.4 Chronic kidney disease, stage 4 (severe) (principal); D63.1 Anemia in chronic kidney disease; E55.9 Vitamin D deficiency, unspecified
CPT/HCPCS: 36415; 80069; 82043; 82306; 82570; 83735; 83970; 85027

== ENCOUNTER → 2023-04-14 | Outpatient (CLI) | payer MEDICARE, OTHER, SELFPAY ==
[2022-07-11 11:12] VITALS: BMI 40.4
--- NOTE | 2023-04-14 15:00 | RAD_ITS ---
INDICATION: ABDOMEN BLOATING EXAMINATION/TECHNIQUE: X-RAY - XR Abdomen W/ Decub and/or Erect Views COMPARISON: FINDINGS: BOWEL GAS PATTERN: Mild small bowel aorta is right and left midabdomen. FREE AIR: Not assessed on a single supine view. ORGANOMEGALY: Not seen. CALCIFICATIONS: No abnormal calcifications observed. LOWER CHEST: No acute pathology. BONES AND SOFT moderate levoscoliosis. Leftward subluxation of L3 on L4. Bilateral pedicle screw fusion L4-S1. Prior kyphoplasty L1. It osteoarthritis left hip. RAD[employer] Decub and/or Erect IMPRESSION: Small bowel ileus right and left midabdomen. Additional findings above. Electronically Signed: Rayo Gonzales MD, UMAIR at 19:35 EDT ,
== END | disposition home or self-care (01) ==
LOC: MTRAD 14:59
PROVIDERS: PCP Internal Medicine; Referring Provider Internal Medicine Gastroenterology; Visit Provider Internal Medicine Gastroenterology
DX: R14.0 Abdominal distension (gaseous) (principal)
CPT/HCPCS: 74019

== ENCOUNTER 2023-05-03 12:28 | Emergency (ER) | payer MEDICARE, OTHER, SELFPAY ==
[2022-07-11 11:12] VITALS: BMI 40.4
[2023-05-03 12:29] VITALS: BP 135/79; PULSE 121; RESP 22; TEMP 35.5; O2SAT 94
[2023-05-03 12:39] VITALS: BMI 45.8
[2023-05-03 12:41] VITALS: BP 150/81; PULSE 118; RESP 19; O2SAT 98
--- NOTE | 2023-05-03 12:42 | EKG12_ITS ---
Test Reason : CP Blood Pressure : / mmHG Vent. Rate : 114 BPM Atrial Rate : 000 BPM P-R Int : 000 ms QRS Dur : 146 ms QT Int : 370 ms P-R-T Axes : 000 125 004 degrees QTc Int : 509 ms Sinus tachycardia Right bundle branch block Septal infarct , age undetermined Lateral infarct , age undetermined Abnormal ECG Confirmed by IRA FELIX, KEREN ([id number]), book editor KATHI COLBERT ([id number]) on 05/04/2023 11:38:44 AM Referred By: Confirmed By:KEREN ROTH MD
--- NOTE | 2023-05-03 12:43 | EDS_ITS ---
HPI History of Present Illness Chief Complaint: Chest Pain Narrative Narrative: 72-year-old female with multiple medical problems including COPD, wears 3 to 4 L of oxygen at home presents with chest pain radiating to her left jaw that started approximately an hour ago. She was sitting watching TV, and states that she began experiencing left-sided chest pain that radiated upward and towards her left arm. It was sharp and stabbing in nature. Now she states that it is dull. She denies any increased leg swelling, she also feels her heart racing and palpitations. No exacerbating or alleviating factors. No recent fever or chills, no cough, no increased shortness of breath over her baseline. PFSH [facility] Medical History Allergic rhinitis Asthma Chronic kidney disease Chronic obstructive lung disease Chronic renal failure, stage 3 (moderate) Compression fracture of L1 vertebra Constipation COVID-19 Debility Diabetes Diabetes mellitus type 2 in obese Dysphagia Essential (primary) hypertension GERD (gastroesophageal reflux disease) Gout Hyperlipidemia Hyperuricemia Intractable low back pain L1 vertebral fracture Leukocytosis Lower extremity edema Lung abscess Morbid obesity Muscle spasm Noncompliance with CPAP treatment Obesity Obesity (BMI 30-39.9) Obstructive sleep apnea On home O2 Osteopenia Osteoporosis Osteoporosis Overactive bladder Paroxysmal atrial fibrillation Pneumonia Right bundle branch block (RBBB) Sarcoidosis Secondary pulmonary arterial hypertension Type 2 diabetes mellitus Venous insufficiency of both lower extremities Home Medications fluticasone propionate 50 mcg/actuation nasal spray,suspension 2 spray NASAL DAILY PRN PRN Congestion 06/21/17 [History Last Taken 11/19/20] febuxostat 40 mg tablet (Uloric) 40 mg PO DAILY gout 12/30/18 [History Last Taken 11/19/20] fluticasone 500 mcg-salmeterol 50 mcg/dose blistr powdr for inhalation (Advair Diskus) 1 inh inhalation BID SOB 07/17/20 [History Last Taken 11/19/20] acetaminophen 650 mg tablet,extended release (Tylenol Arthritis Pain) 650 mg PO Q12H 02/08/21 [History Last Taken Unknown] albuterol sulfate 90 mcg/actuation aerosol inhaler 2 puff inhalation Q4H PRN sob 02/08/21 [History Last Taken Unknown] aspirin 81 mg tablet,delayed release 81 mg PO DAILY #1 TAB 02/08/21 [Rx Last Taken Unknown] pantoprazole 40 mg tablet,delayed release 40 mg PO BID GERD 02/08/21 [History Last Taken Unknown] loratadine 10 mg tablet (Claritin) 10 mg PO DAILY Allergy 01/14/22 [History Last Taken Unknown] mirabegron 50 mg tablet,extended release 24 hr (Myrbetriq) 50 mg PO DAILY overactive bladder 01/14/22 [History Last Taken Unknown] tiotropium bromide 1.25 mcg/actuation mist for inhalation (Spiriva Respimat) 2 puff inhalation DAILY 01/14/22 [History Last Taken Unknown] fenofibrate nanocrystallized 145 mg tablet (Tricor) 145 mg PO DAILY Cholesterol 10/16/22 [History Last Taken Unknown] budesonide 0.5 mg/2 mL suspension for nebulization 0.5 mg inhalation BID 12/11/22 [History Last Taken Unknown] cholecalciferol (vitamin D3) 25 mcg (1,000 unit) tablet 5,000 unit PO DAILY supplement 12/11/22 [History Last Taken Unknown] insulin aspart U-100 100 unit/mL (3 mL) subcutaneous pen (Novolog FlexPen U-100 Insulin aspart) See Rx Instructions subcut TID 12/11/22 [History Last Taken Unknown] insulin glargine 100 unit/mL (3 mL) subcutaneous pen 38 unit subcut QPM DM 12/11/22 [History Last Taken Unknown] levalbuterol HCl 0.63 mg/3 mL solution for nebulization 0.63 mg inhalation Q6H PRN wheeze 12/11/22 [History Last Taken Unknown] lidocaine 5 % topical patch 2 patch topical DAILY pain 12/11/22 [History Last Taken Unknown] pen needle, diabetic 32 gauge x 5/32 (BD Ultra-Fine Sonam Pen Needle) #400 ea 01/22/23 [Rx Last Taken Unknown] flash glucose sensor (FreeStyle Garett 2 Sensor kit) #1 ea 02/19/23 [Rx Last Taken Unknown] linaclotide 72 mcg capsule (Linzess) 72 mcg PO DAILY IBS 02/22/23 [History Last Taken Unknown] montelukast 10 mg tablet (Singulair) 10 mg PO DAILY 02/22/23 [History Last Taken Unknown] ipratropium 0.5 mg-albuterol 3 mg (2.5 mg base)/3 mL nebulization soln 3 ml inhalation BID PRN wheezing #180 mL 02/24/23 [Rx Last Taken Unknown] sodium chloride 0.65 % nasal spray aerosol (Deep Sea Nasal) 2 spray NASAL TID PRN PRN NASAL DRYNESS #0 mL 02/24/23 [Rx Last Taken Unknown] diltiazem HCl 180 mg capsule,24 hr,extended release (Tiazac) 180 mg PO DAILY 03/03/23 [History Last Taken Unknown] omeprazole 20 mg capsule,delayed release 20 mg PO DAILY 03/03/23 [History Last Taken Unknown] torsemide 20 mg tablet 20 mg PO DAILY 03/03/23 [History Last Taken Unknown] tramadol 50 mg tablet 50 mg PO 03/03/23 [History Last Taken Unknown] losartan 100 mg tablet (Cozaar) 100 mg PO DAILY 05/03/23 [History Last Taken Unknown] sitagliptin phosphate 25 mg tablet (Januvia) 25 mg PO DAILY 05/03/23 [History Last Taken Unknown] triamterene 37.5 mg-hydrochlorothiazide 25 mg capsule 1 cap PO DAILY 05/03/23 [History Last Taken Unknown] Allergy/AdvReac Type Severity Reaction Status Date / Time doxycycline Allergy Intermediate GI problems Verified 05/03/23 12:29 clindamycin Allergy Rash Verified 05/03/23 12:29 insulin detemir Allergy Rash Verified 05/03/23 12:29 [From Levemir U-100 Insulin] ciprofloxacin AdvReac Mild Upset Verified 05/03/23 12:29 Stomach amoxicillin trihydrate AdvReac Nausea Verified 05/03/23 12:29 [From Augmentin] morphine AdvReac Nausea Verified 05/03/23 12:29 potassium clavulanate AdvReac Nausea Verified 05/03/23 12:29 [From Augmentin] Family History Father Hypertension Colon cancer Cancer lung Mother Hypertension Heart disease Diabetes Surgical History History of cholecystectomy History of knee replacement procedure of left knee History of laminectomy History of right and left heart catheterization (05/04/20) Social History Smoking Status: Former smoker how long ago did patient quit smokin years ago alcohol intake: never substance use type: does not use caffeine: Yes Type: coffee Number of servings: 2 ROS ROS ED ROS Narrative Constitutional: No fever, no chills. HEENT: No sore throat. No neck pain. No loss of vision. No rhinorrhea. Cardiovascular: Left-sided chest pain radiating to left jaw and towards left shoulder, described as sharp and stabbing then dull. No palpitations. No pedal edema. Respiratory: No cough, no shortness of breath. Abdominal: No abdominal pain. No nausea. No vomiting. Genitourinary: No dysuria. No hematuria. Musculoskeletal: No myalgias. No arthralgias. Neurologic: No headaches. No dizziness. No lightheadedness. Skin: No rash. No change in color. Psychiatric: No depression. No anxiety. EXAM Physical Exam Narrative Exam Narrative: Afebrile. Vital signs noted. HEENT: Normocephalic. Atraumatic. PERRL, EOMI. Neck soft and supple. No point tenderness or step off. Cardiovascular: Positive tachycardia at 118 bpm no murmurs, rubs, or gallops appreciated. Respiratory: No tachypnea. Lungs clear to auscultation bilaterally. Decreased breath sounds bilateral bases. Gastrointestinal: Abdomen soft, nontender, with normoactive bowel sounds. No rebound or guarding. Neurological: Awake. Alert. Nonfocal, nonlateralizing. Skin: No rash. Normal color. No pallor. Musculoskeletal: No pedal edema. Full range of motion extremities. Const Vital Signs: 05/03/23 12:29 05/03/23 12:41 05/03/23 13:07 Temperature 96 F L Temperature Source Temporal Pulse Rate 121 H 118 H Respiratory Rate 22 H 19 H Respiratory Effort Blood Pressure 135/79 H 150/81 H Blood Pressure Mean 97 104 Pulse Ox 94 98 97 Oxygen Delivery Method Nasal Cannula Nasal Cannula Nasal Cannula Oxygen Flow Rate (L/min) 3 4 4 05/03/23 13:08 05/03/23 13:51 05/03/23 15:50 Temperature Temperature Source Pulse Rate 113 H 82 Respiratory Rate 20 H 20 H Respiratory Effort Normal Blood Pressure 118/71 137/60 H Blood Pressure Mean 86 85 Pulse Ox 99 97 Oxygen Delivery Method Nasal Cannula Nasal Cannula Oxygen Flow Rate (L/min) 4 4 Heart Score History: Slightly/Non-Suspicious Age: >/= 65 years Risk Factors: 1 or 2 Risk Factors Score: 3 MDM MDM MDM Narrative Medical decision making narrative: Comprehensive work-up was pursued. I reviewed her prior records and ED visits. Earlier she was seen in February twice for shortness of breath and postnasal drip. She states she has a history of atrial fibrillation but does not take anything for it. Concern is for coronary artery disease and ACS. EKG will be obtained along with serial troponins. I will also obtain basic laboratory work including CBC and BMP. I did obtain her EKG and interpreted it independently. It shows wide QRS at 114 bpm, but no significant change from previous EKG when it was normal sinus. This could be more of an atrial fibrillation with RVR. I reviewed her laboratory work, she has a slightly elevated white count of 12.1 which I think is nonspecific, hemoglobin stable at 11.1 when compared to previous laboratories. Platelet count normal at 284. Chloride is slightly elevated at 110 which I think is nonspecific, sodium normal at 143 with potassium normal at 4.2. I do not think that she is dehydrated. She has chronically elevated BUN and chronically elevated creatinine, around her baseline of 1.64. Urinalysis is negative for infection and negative for ketones. I do not feel antibiotics are indicated. Chest x-ray was obtained and interpreted by myself independently. On my interpretation I see no evidence of pneumonia or pneumothorax. Her initial high-sensitivity troponin was 28. 2-hour repeat was 32 for a delta less than 7. I do not feel that she requires observation. She does take Tiazac, and she was bolused diltiazem 10 mg intravenously. Her heart rate is now 82 and she feels improved. She is satting well at 97% on her 4 L nasal cannula. 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 Return instructions to the emergency department were reviewed. Disposition is discharged home in stable condition. History & Record Review Discussion w/independent historian: Patient and Significant other Additional record(s) reviewed:: Prior ED visit and Prior labs Lab Data Attestation: I reviewed the patient's lab results. Labs: Laboratory Results - last 24 hr 05/03/23 05/03/23 05/03/23 13:14 13:20 13:20 WBC 12.1 H RBC 3.67 L Hgb 11.1 L Hct 35.1 L MCV 95.6 MCH 30.2 MCHC 31.6 L RDW Std Deviation 51.1 H RDW Coeff of Jazzmine 14.6 Plt Count 284 MPV 9.5 Immature Gran % (Auto) 1.100 H Neut % (Auto) 80.2 H Lymph % (Auto) 6.8 L Todd % (Auto) 9.3 Eos % (Auto) 2.1 Baso % (Auto) 0.5 Absolute Neuts (auto) 9.7 H Absolute Lymphs (auto) 0.82 L Nucleated RBC % 0 Sodium 143 Potassium 4.2 Chloride 110 H Carbon Dioxide 27.0 Anion Gap 6 BUN 38 H Creatinine 1.64 H Estim Creat Clear Calc 47.09 Est GFR (MDRD) Af Amer 40 L Est GFR (MDRD) Non-Af 33 L BUN/Creatinine Ratio 23.2 H Glucose 160 H Calcium 10.0 Troponin I High Sens 28 Urine Color Yellow Urine Clarity Clear Urine pH 6.5 Ur Specific [place] 1.015 Urine Protein 30 H Urine Glucose (UA) Normal Urine Ketones Negative Urine Occult Blood 10 H Urine Nitrite Negative Urine Bilirubin Negative Urine Urobilinogen Normal Ur Leukocyte Esterase Negative Urine RBC 0 SEEN Urine WBC 0 SEEN Ur Squamous Epith Cells 0-5 SEEN Urine Bacteria 0 SEEN Urine Mucus 0 SEEN 05/03/23 15:40 WBC RBC Hgb Hct MCV MCH MCHC RDW Std Deviation RDW Coeff of Jazz[place] Plt Count MPV Immature Gran % (Auto) Neut % (Auto) Lymph % (Auto) Todd % (Auto) Eos % (Auto) Baso % (Auto) Absolute Neuts (auto) Absolute Lymphs (auto) Nucleated RBC % Sodium Potassium Chloride Carbon Dioxide Anion Gap BUN Creatinine Estim Creat Clear Calc Est GFR (MDRD) Af Amer Est GFR (MDRD) Non-Af BUN/Creatinine Ratio Glucose Calcium Troponin I High Sens 32 Urine Color Urine Clarity Urine pH Ur Specific [place] Urine Protein Urine Glucose (UA) Urine Ketones Urine Occult Blood Urine Nitrite Urine Bilirubin Urine Urobilinogen Ur Leukocyte Esterase Urine RBC Urine WBC Ur Squamous Epith Cells Urine Bacteria Urine Mucus Radiography Diagnostic Testing: Clinical Impression(s) from Imaging Studies Chest X-Ray 05/03/23 13:32 IMPRESSION: No radiographic evidence of acute cardiopulmonary disease. Electronically Signed: Angelina Ferro MD at 13:57 EDT , Discharge Plan Triage Chief Complaint: Chest Pain Other Complaint: Shortness of Breath ED Provider: Jarocho Cardenas Dx/Rx/DC Orders Clinical Impression: Chest pain, Rapid heart rate Instructions: ED Chest Pain, Uncertain Cause, ED Palpitations Prescriptions: No Action fluticasone propion-salmeterol [Advair Diskus] 500-50 mcg/dose blister with device 1 inh INHALATION BID albuterol sulfate 90 mcg/actuation HFA aerosol inhaler 2 puff INHALATION Q4H PRN (Reason: sob) acetaminophen [Tylenol Arthritis Pain] 650 mg tablet extended release 650 mg PO Q12H aspirin 81 mg tablet,delayed release (DR/EC) 81 mg PO DAILY Qty: 1 0RF levalbuterol HCl 0.63 mg/3 mL solution for nebulization 0.63 mg inhalation Q6H PRN (Reason: wheeze) lidocaine 5 % adhesive patch,medicated 2 patch topical DAILY Rx Instructions: leave on most painful area for up to 12 hrs insulin glargine 100 unit/mL (3 mL) insulin pen 38 unit SC QPM budesonide 0.5 mg/2 mL suspension for nebulization 0.5 mg inhalation BID insulin aspart U-100 [Novolog FlexPen U-100 Insulin] 100 unit/mL (3 mL) insulin pen See Rx Instructions subcut TID Rx Instructions: 07-07-17 with meals subcut three times a day; fenofibrate nanocrystallized [Tricor] 145 mg tablet 145 mg PO DAILY torsemide 20 mg tablet 20 mg PO DAILY diltiazem HCl [Tiazac] 180 mg capsule,extended release 24 hr 180 mg PO DAILY tramadol 50 mg tablet 50 mg PO omeprazole 20 mg capsule,delayed release(DR/EC) 20 mg PO DAILY fluticasone propionate 1 SPRAY spray,suspension 2 spray NASAL DAILY PRN PRN (Reason: Congestion) febuxostat [Uloric] 40 MG tablet 40 mg PO DAILY cholecalciferol (vitamin D3) 25 mcg (1,000 unit) tablet 5,000 unit PO DAILY pantoprazole 40 mg tablet,delayed release (DR/EC) 40 mg PO BID loratadine [Claritin] 10 mg Tablet 10 mg PO DAILY Myrbetriq 50 mg Tablet Extended Release 24 Hr 50 mg PO DAILY Spiriva Respimat 1.25 mcg/actuation Mist 2 puff INHALATION DAILY montelukast [Singulair] 10 mg Tablet 10 mg PO DAILY Linzess 72 mcg Capsule 72 mcg PO DAILY Deep Sea Nasal 0.65 % Aerosol,Anita 2 spray NASAL TID PRN PRN (Reason: NASAL DRYNESS) Qty: 0 0RF ipratropium-albuterol 0.5 mg-3 mg(2.5 mg base)/3 mL solution for nebulization 3 ml inhalation BID PRN (Reason: wheezing) Qty: 180 0RF triamterene-hydrochlorothiazid 37.5-25 mg Capsule 1 cap PO DAILY losartan [Cozaar] 100 mg Tablet 100 mg PO DAILY Januvia 25 mg Tablet 25 mg PO DAILY (DME) pen needle, diabetic [BD Ultra-Fine Sonam Pen Needle] 32 gauge x 5/32 needle See Rx Instructions .ROUTE .MEDSUPPLY Qty: 400 3RF Rx Instructions: 4times daily (DME) FreeStyle Garett 2 Sensor Kit See Rx Instructions .ROUTE .MEDSUPPLY Qty: 1 0RF Rx Instructions: 1 sensor q 14 days Primary Care Provider: Veronica Oquendo Referrals: David Schroeder MD [Med Staff - Active Staff] - 1 Day Veronica Oquendo DO [Primary Care Provider] - As soon as possible Disposition Disposition: Home, Self Care
[2023-05-03 13:07] VITALS: O2SAT 97
[2023-05-03] MEDS: 0.9% Normal Saline 1,000 ML 1000 ML IV (13:28)
--- NOTE | 2023-05-03 13:32 | RAD_ITS ---
INDICATION: chest pain EXAMINATION/TECHNIQUE: X-RAY - XR Chest 1 View COMPARISON: March 05, 2023 FINDINGS: LINES/DEVICES: None. LUNGS: No consolidation, edema or effusion. No pneumothorax. MEDIASTINUM AND CARDIOVASCULAR STRUCTURES: Cardiac silhouette not enlarged. There are stable calcified mediastinal and hilar lymph nodes. BONES AND SOFT TISSUES: Unremarkable. RAD/Chest 1 View (Portable) IMPRESSION: No radiographic evidence of acute cardiopulmonary disease. Electronically Signed: Angelina Ferro MD at 13:57 EDT ,
[2023-05-03 13:33] LABS: Absolute Lymphocyte Count 0.82 X10^3/uL (0.83-4.51); Absolute Neutrophil Count 9.7 X10^3/uL (2.0-7.7); Basophil# 0.06 X10^3/uL; Basophil% 0.5 % (0-1); Eosinophil# 0.25 X10^3/uL; Eosinophils% 2.1 % (0-5); Hematocrit 35.1 % (37-47); Hemoglobin 11.1 g/dL (12.0-15.0); Lymphocyte # 0.82 X10^3/ul (0.83-4.51); Lymphocyte % 6.8 % (19-41); Mean Corp Hgb Conc 31.6 g/dL (32-36); Mean Corpuscular Hgb 30.2 pg (27.0-32.0); Mean Corpuscular Volume 95.6 fL (81-99); Mean Platelet Vol. 9.5 fl (6.2-12.0); Monocyte# 1.13 X10^3/uL; Monocyte% 9.3 % (0-10); NRBC Flagged by Analyzer 0 % (0-5); Neutrophil # 9.71 X10^3/uL (2.7-7.7); Neutrophil % 80.2 % (47-70); Platelet Count 284 K/mm3 (150-450); RBC Distribution Width CV 14.6 % (11.6-14.6); RBC Distribution Width SD 51.1 fl (35.1-43.9); Red Blood Count 3.67 M/mm3 (4.2-5.4); White Blood Count 12.1 K/mm3 (4.4-11.0)
[2023-05-03 13:51] VITALS: BP 118/71; PULSE 113; RESP 20; O2SAT 99
[2023-05-03 13:51] LABS: Anion Gap 6 (5-15); BUN 38 mg/dL (7-18); BUN/Creat Ratio 23.2 RATIO (10-20); Chloride 110 mmol/L (98-107); Creatinine, Serum 1.64 mg/dL (0.55-1.02); EST Glomerular Filtration Rate 33 mL/min (>60); Est Glom Filt Rate - Afr Amer 40 mL/min (>60); Estimated Creatinine Clearance 47.09 ml/min; Glucose 160 mg/dL (74-106); Potassium 4.2 mmol/L (3.5-5.1); Sodium Level 143 mmol/L (136-145); Troponin-I HS (w/2H Reflex) 28 pg/mL (3.0-54.0)
[2023-05-03] MEDS: dilTIAZem 25 MG/5 ML Vial 10 MG IV BOLUS (14:25)
[2023-05-03 14:40] LABS: Bacteria 0 SEEN /hpf (None Seen); Mucous, Urine 0 SEEN /hpf (<or=2+); Red Blood Cells-Urine 0 SEEN /hpf (0-5); White Blood Cells 0 SEEN /hpf (0-5)
[2023-05-03 14:45] LABS: Color, Urine Yellow (Yellow); Glucose, Dipstick Normal (Normal); Ketone-Dipstick Negative (Negative); Leukocyte Esterase-Dipstick Negative /ul (Negative); Nitrite-Dipstick Negative (Negative); Occult Blood-Urine 10 /ul (Negative); Protein-Dipstick 30 mg/dl (Negative); Specific Gravity, Urine 1.015 (1.002-1.030); Urine Bilirubin Dipstick Negative (Negative); Urine Clarity Clear (Clear); Urine Urobilinogen Normal (Normal); Urine pH 6.5 (5.0 - 8.0)
[2023-05-03 15:03] LABS: Squamous Epithelial Cells - UA 0-5 SEEN /hpf (5-10)
[2023-05-03 15:29] LABS: Reflex Troponin-HS? (from REC) Y
[2023-05-03 15:50] VITALS: BP 137/60; PULSE 82; RESP 20; O2SAT 97
[2023-05-03 16:04] LABS: Troponin-I HS 32 pg/mL (3.0-54.0)
== END 2023-05-03 16:33 | disposition home or self-care (01) ==
PROVIDERS: Emergency Provider Emergency Medicine; PCP Internal Medicine; Visit Provider Emergency Medicine
DX: R07.9 Chest pain, unspecified (principal); J44.9 Chronic obstructive pulmonary disease, unspecified; E11.22 Type 2 diabetes mellitus with diabetic chronic kidney disease; N18.30 Chronic kidney disease, stage 3 unspecified; I12.9 Hypertensive chronic kidney disease with stage 1 through stage 4 chronic kidney disease, or unspecified chronic kidney disease; E78.5 Hyperlipidemia, unspecified; Z87.891 Personal history of nicotine dependence; Z99.81 Dependence on supplemental oxygen; Z79.899 Other long term (current) drug therapy; R00.0 Tachycardia, unspecified
CPT/HCPCS: 71045; 80048; 81001; 84484; 85025; 93005; 96361; 96374; 99283; J7030; A4216

== ENCOUNTER → 2023-05-04 | Outpatient (CLI) | payer MEDICARE, OTHER, SELFPAY ==
[2022-07-11 11:12] VITALS: BMI 40.4
[2023-05-04 15:20] LABS: Hematocrit 35.4 % (37-47); Hemoglobin 10.9 g/dL (12.0-15.0); Mean Corp Hgb Conc 30.8 g/dL (32-36); Mean Corpuscular Hgb 29.8 pg (27.0-32.0); Mean Corpuscular Volume 96.7 fL (81-99); Mean Platelet Vol. 10.2 fl (6.2-12.0); Platelet Count 282 K/mm3 (150-450); RBC Distribution Width CV 14.5 % (11.6-14.6); RBC Distribution Width SD 51.6 fl (35.1-43.9); Red Blood Count 3.66 M/mm3 (4.2-5.4); White Blood Count 12.6 K/mm3 (4.4-11.0)
[2023-05-04 15:29] LABS: Microalbumin:Creatinine Ratio 173.8 mg/g CRE (<30 mg/g CRE)
[2023-05-04 15:52] LABS: Albumin, Serum 3.4 g/dL (3.2-5.0); BUN 38 mg/dL (7-18); Calcium,Total 10.6 mg/dL (8.5-10.1); Chloride 111 mmol/L (98-107); Creatinine, Serum 1.73 mg/dL (0.55-1.02); EST Glomerular Filtration Rate 31 mL/min (>60); Est Glom Filt Rate - Afr Amer 37 mL/min (>60); Glucose 101 mg/dL (74-106); Magnesium 1.7 mg/dL (1.6-2.6); Phosphorus 2.3 mg/dL (2.5-4.9); Potassium 4.4 mmol/L (3.5-5.1); Sodium Level 140 mmol/L (136-145)
[2023-05-04 15:55] LABS: Vitamin D,25 Hydroxy 100.4 ng/mL
[2023-05-05 09:19] LABS: PTHIN 56.9 pg/mL (18.4-80.1)
== END | disposition home or self-care (01) ==
LOC: MTLAB 12:46
PROVIDERS: PCP Internal Medicine; Referring Provider Internal Medicine Nephrology; Visit Provider Internal Medicine Nephrology
DX: E55.9 Vitamin D deficiency, unspecified (principal); N18.4 Chronic kidney disease, stage 4 (severe); D63.1 Anemia in chronic kidney disease
CPT/HCPCS: 36415; 80069; 82043; 82306; 82570; 83735; 83970; 85027

== ENCOUNTER 2023-06-05 11:23 | Emergency (ER) | payer MEDICARE, OTHER, SELFPAY ==
[2022-07-11 11:12] VITALS: BMI 40.4
[2023-06-05 11:24] VITALS: BP 168/77; PULSE 85; RESP 22; TEMP 36.4; O2SAT 89; BMI 44.1
--- NOTE | 2023-06-05 12:55 | EDS_ITS ---
HPI History of Present Illness Chief Complaint: Abscess Informant: patient Onset/Context/Timing Onset: Days (2-3) Context: Gradual Onset Timing: Continuous Quality: Aching Location: Right anterior neck Worsened by: Movement Relieved by: Nothing Narrative Narrative: Patient presents with pain and swelling to the right anterior neck that has been getting worse over the past couple of days. Patient states it is gradually getting worse. Patient states it is constant. Patient describes her pain as aching. Patient states it is worse with movement. Patient states she was able to squeeze it and express a small amount of purulent drainage from the area. Denies any fevers or chills. Patient states that she saw her mental health program specialist who referred to the emergency department for incision and drainage. [facility] Medical History Allergic rhinitis Asthma Chronic kidney disease Chronic obstructive lung disease Chronic renal failure, stage 3 (moderate) Compression fracture of L1 vertebra Constipation COVID-19 Debility Diabetes Diabetes mellitus type 2 in obese Dysphagia Essential (primary) hypertension GERD (gastroesophageal reflux disease) Gout Hyperlipidemia Hyperuricemia Intractable low back pain L1 vertebral fracture Leukocytosis Lower extremity edema Lung abscess Morbid obesity Muscle spasm Noncompliance with CPAP treatment Obesity Obesity (BMI 30-39.9) Obstructive sleep apnea On home O2 Osteopenia Osteoporosis Osteoporosis Overactive bladder Paroxysmal atrial fibrillation Pneumonia Right bundle branch block (RBBB) Sarcoidosis Secondary pulmonary arterial hypertension Type 2 diabetes mellitus Venous insufficiency of both lower extremities Home Medications fluticasone propionate 50 mcg/actuation nasal spray,suspension 2 spray NASAL DAILY PRN PRN Congestion 06/21/17 [History Last Taken 11/19/20] febuxostat 40 mg tablet (Uloric) 40 mg PO DAILY gout 12/30/18 [History Last Taken 11/19/20] fluticasone 500 mcg-salmeterol 50 mcg/dose blistr powdr for inhalation (Advair Diskus) 1 inh inhalation BID SOB 07/17/20 [History Last Taken 11/19/20] acetaminophen 650 mg tablet,extended release (Tylenol Arthritis Pain) 650 mg PO Q12H 02/08/21 [History Last Taken Unknown] albuterol sulfate 90 mcg/actuation aerosol inhaler 2 puff inhalation Q4H PRN sob 02/08/21 [History Last Taken Unknown] aspirin 81 mg tablet,delayed release 81 mg PO DAILY #1 TAB 02/08/21 [Rx Last Taken Unknown] loratadine 10 mg tablet (Claritin) 10 mg PO DAILY Allergy 01/14/22 [History Last Taken Unknown] mirabegron 50 mg tablet,extended release 24 hr (Myrbetriq) 50 mg PO DAILY overactive bladder 01/14/22 [History Last Taken Unknown] tiotropium bromide 1.25 mcg/actuation mist for inhalation (Spiriva Respimat) 2 puff inhalation DAILY 01/14/22 [History Last Taken Unknown] fenofibrate nanocrystallized 145 mg tablet (Tricor) 145 mg PO DAILY Cholesterol 10/16/22 [History Last Taken Unknown] budesonide 0.5 mg/2 mL suspension for nebulization 0.5 mg inhalation BID 12/11/22 [History Last Taken Unknown] cholecalciferol (vitamin D3) 25 mcg (1,000 unit) tablet 5,000 unit PO DAILY supplement 12/11/22 [History Last Taken Unknown] insulin aspart U-100 100 unit/mL (3 mL) subcutaneous pen (Novolog FlexPen U-100 Insulin aspart) See Rx Instructions subcut TID 12/11/22 [History Last Taken Unknown] insulin glargine 100 unit/mL (3 mL) subcutaneous pen 38 unit subcut QPM DM 12/11/22 [History Last Taken Unknown] levalbuterol HCl 0.63 mg/3 mL solution for nebulization 0.63 mg inhalation Q6H PRN wheeze 12/11/22 [History Last Taken Unknown] lidocaine 5 % topical patch 2 patch topical DAILY pain 12/11/22 [History Last Taken Unknown] pen needle, diabetic 32 gauge x 5/32 (BD Ultra-Fine Sonam Pen Needle) #400 ea 01/22/23 [Rx Last Taken Unknown] flash glucose sensor (FreeStyle Garett 2 Sensor kit) #1 ea 02/19/23 [Rx Last Taken Unknown] linaclotide 72 mcg capsule (Linzess) 72 mcg PO DAILY IBS 02/22/23 [History Last Taken Unknown] montelukast 10 mg tablet (Singulair) 10 mg PO DAILY 02/22/23 [History Last Taken Unknown] ipratropium 0.5 mg-albuterol 3 mg (2.5 mg base)/3 mL nebulization soln 3 ml inhalation BID PRN wheezing #180 mL 02/24/23 [Rx Last Taken Unknown] sodium chloride 0.65 % nasal spray aerosol (Deep Sea Nasal) 2 spray NASAL TID PRN PRN NASAL DRYNESS #0 mL 02/24/23 [Rx Last Taken Unknown] omeprazole 20 mg capsule,delayed release 20 mg PO DAILY 03/03/23 [History Last Taken Unknown] torsemide 20 mg tablet 20 mg PO DAILY 03/03/23 [History Last Taken Unknown] tramadol 50 mg tablet 50 mg PO 03/03/23 [History Last Taken Unknown] losartan 100 mg tablet (Cozaar) 100 mg PO DAILY 05/03/23 [History Last Taken Unknown] sitagliptin phosphate 25 mg tablet (Januvia) 25 mg PO DAILY 05/03/23 [History [place] st Taken Unknown] triamterene 37.5 mg-hydrochlorothiazide 25 mg capsule 1 cap PO DAILY 05/03/23 [History Last Taken Unknown] pantoprazole 40 mg tablet,delayed release 40 mg PO DAILY GERD 05/07/23 [History Last Taken Unknown] diltiazem HCl 180 mg capsule,24 hr,extended release (Tiazac) 180 mg PO DAILY #90 caps 05/19/23 [Rx Last Taken Unknown] cephalexin 500 mg capsule 500 mg PO Q6 #40 CAPSULES 06/05/23 [Rx Last Taken Unknown] Allergy/AdvReac Type Severity Reaction Status Date / Time doxycycline Allergy Intermediate GI problems Verified 05/07/23 09:31 clindamycin Allergy Rash Verified 05/07/23 09:31 insulin detemir Allergy Rash Verified 05/07/23 09:31 [From Levemir U-100 Insulin] ciprofloxacin AdvReac Mild Upset Verified 05/07/23 09:31 Stomach amoxicillin trihydrate AdvReac Nausea Verified 05/07/23 09:31 [From Augmentin] morphine AdvReac Nausea Verified 05/07/23 09:31 potassium clavulanate AdvReac Nausea Verified 05/07/23 09:31 [From Augmentin] Family History Father Hypertension Colon cancer Cancer lung Mother Hypertension Heart disease Diabetes Surgical History History of cholecystectomy History of knee replacement procedure of left knee History of laminectomy History of right and left heart catheterization (05/04/20) Social History Smoking Status: Former smoker how long ago did patient quit smokin years ago alcohol intake: never substance use type: does not use caffeine: Yes Type: coffee Number of servings: 2 ROS ROS ED Constitutional Constitutional ED: Denies chills or fever(s) Eyes Eyes: Denies blurry vision or change in vision ENT ENT ED: Denies rhinorrhea or sore throat Cardiovascular Cardiovascular: Denies chest pain or palpitations Respiratory/Chest Respiratory/Chest: Denies cough or dyspnea Gastrointestinal Gastrointestinal: Denies nausea or vomiting Genitourinary Genitourinary ED: Denies dysuria or hematuria Musculoskeletal Musculoskeletal: Denies back pain or neck pain Integumentary Reports abscess; Denies rash Neurologic Neurologic: Denies headache(s) or weakness Allergic/Immunologic Allergic/Immunologic ED: Denies mouth swelling or urticaria EXAM Physical Exam Const Vital Signs: 06/05/23 11:24 Temperature 97.5 F L Temperature Source Temporal Pulse Rate 85 Respiratory Rate 22 H Blood Pressure 168/77 H Blood Pressure Mean 107 Pulse Ox 89 Oxygen Delivery Method Nasal Cannula Oxygen Flow Rate (L/min) 4 Positive well nourished, well developed and obese General Appearance ED: well developed and NAD Nutritional Appearance: obese HEENT Reports moist mucous membranes Neck supple and no JVD Neuro oriented x3, CN's II-XII intact bilaterally and no sensory deficits noted Sensorium / Orientation: alert Motor Exam: strength 5/5 throughout Psych mental status grossly normal Skin Skin Narrative: Skin is warm and dry. There is a tender indurated area over the anterior aspect of the right neck. There is questionable fluctuance in this area. There is no active discharge or drainage. There are no vesicles or pustules. There are no petechia noted. There is no involvement of mucous membranes. MDM MDM MDM Narrative Medical decision making narrative: Patient was advised of the need for incision and drainage. Patient was informed of the procedure. Patient was given the opportunity ask questions. Patient had no further questions. Patient is agreeable to undergoing incision and drainage. Informed consent was obtained. The area was cleaned with chlorhexidine prep. The area was anesthetized with 1% plain lidocaine locally. A small linear incision was made using an 11 blade scalpel. A minimal amount of purulent drainage was expressed. The wound was left open. Bacitracin dressing was applied. Patient tolerated the procedure well. Patient was instructed to use warm compresses. Patient was given a dose of Keflex here. Patient was given a prescription for Keflex. Patient was instructed to follow-up with her primary care physician in 5 to 7 days. Patient understood and was agreeable with the plan. All questions were answered. Discharge Plan Triage Chief Complaint: Abscess ED Provider: Hoang Coronado Dx/Rx/DC Orders Clinical Impression: Diabetes, Essential (primary) hypertension, Abscess of skin of neck Instructions: ED Abscess Incision And Drainage Prescriptions: New cephalexin [cephalexin] 500 mg capsule 500 mg PO Q6 Qty: 40 0RF No Action fluticasone propion-salmeterol [Advair Diskus] 500-50 mcg/dose blister with device 1 inh INHALATION BID albuterol sulfate 90 mcg/actuation HFA aerosol inhaler 2 puff INHALATION Q4H PRN (Reason: sob) acetaminophen [Tylenol Arthritis Pain] 650 mg tablet extended release 650 mg PO Q12H aspirin 81 mg tablet,delayed release (DR/EC) 81 mg PO DAILY Qty: 1 0RF levalbuterol HCl 0.63 mg/3 mL solution for nebulization 0.63 mg inhalation Q6H PRN (Reason: wheeze) lidocaine 5 % adhesive patch,medicated 2 patch topical DAILY Rx Instructions: leave on most painful area for up to 12 hrs insulin glargine 100 unit/mL (3 mL) insulin pen 38 unit SC QPM budesonide 0.5 mg/2 mL suspension for nebulization 0.5 mg inhalation BID insulin aspart U-100 [Novolog FlexPen U-100 Insulin] 100 unit/mL (3 mL) insulin pen See Rx Instructions subcut TID Rx Instructions: 07-07-17 with meals subcut three times a day; fenofibrate nanocrystallized [Tricor] 145 mg tablet 145 mg PO DAILY torsemide 20 mg tablet 20 mg PO DAILY tramadol 50 mg tablet 50 mg PO omeprazole 20 mg capsule,delayed release(DR/EC) 20 mg PO DAILY fluticasone propionate 1 SPRAY spray,suspension 2 spray NASAL DAILY PRN PRN (Reason: Congestion) febuxostat [Uloric] 40 MG tablet 40 mg PO DAILY cholecalciferol (vitamin D3) 25 mcg (1,000 unit) tablet 5,000 unit PO DAILY pantoprazole 40 mg tablet,delayed release (DR/EC) 40 mg PO DAILY loratadine [Claritin] 10 mg Tablet 10 mg PO DAILY Myrbetriq 50 mg Tablet Extended Release 24 Hr 50 mg PO DAILY Spiriva Respimat 1.25 mcg/actuation Mist 2 puff INHALATION DAILY montelukast [Singulair] 10 mg Tablet 10 mg PO DAILY Linzess 72 mcg Capsule 72 mcg PO DAILY Deep Sea Nasal 0.65 % Aerosol,[place] 2 spray NASAL TID PRN PRN (Reason: NASAL DRYNESS) Qty: 0 0RF ipratropium-albuterol 0.5 mg-3 mg(2.5 mg base)/3 mL solution for nebulization 3 ml inhalation BID PRN (Reason: wheezing) Qty: 180 0RF triamterene-hydrochlorothiazid 37.5-25 mg Capsule 1 cap PO DAILY losartan [Cozaar] 100 mg Tablet 100 mg PO DAILY Januvia 25 mg Tablet 25 mg PO DAILY (DME) pen needle, diabetic [BD Ultra-Fine Sonam Pen Needle] 32 gauge x 5/32 needle See Rx Instructions .ROUTE .MEDSUPPLY Qty: 400 3RF Rx Instructions: 4times daily (DME) FreeStyle Garett 2 Sensor Kit See Rx Instructions .ROUTE .MEDSUPPLY Qty: 1 0RF Rx Instructions: 1 sensor q 14 days diltiazem HCl [Tiazac] 180 mg capsule,extended release 24 hr 180 mg PO DAILY Qty: 90 3RF Primary Care Provider: Veronica Oquendo Referrals: Veronica Oquendo DO [Primary Care Provider] - 5-7 Days Disposition Disposition: Home, Self Care
[2023-06-05] MEDS: Cephalexin 500 MG Capsule PO (12:58)
[2023-06-05] MEDS: Lidocaine 1% (20 ml mdv) 20 ML Vial INFILT (12:59)
[2023-06-05 14:13] VITALS: PULSE 86; O2SAT 95
== END 2023-06-05 14:14 | disposition home or self-care (01) ==
PROVIDERS: Emergency Provider Emergency Medicine; PCP Internal Medicine; Visit Provider Emergency Medicine
DX: L02.11 Cutaneous abscess of neck (principal); J44.9 Chronic obstructive pulmonary disease, unspecified; E11.22 Type 2 diabetes mellitus with diabetic chronic kidney disease; I48.0 Paroxysmal atrial fibrillation; Z79.4 Long term (current) use of insulin; N18.30 Chronic kidney disease, stage 3 unspecified; I12.9 Hypertensive chronic kidney disease with stage 1 through stage 4 chronic kidney disease, or unspecified chronic kidney disease; E78.5 Hyperlipidemia, unspecified; K21.9 Gastro-esophageal reflux disease without esophagitis; Z79.82 Long term (current) use of aspirin; Z79.899 Other long term (current) drug therapy; Z87.891 Personal history of nicotine dependence
CPT/HCPCS: 10060; 99282

== ENCOUNTER → 2023-06-16 | Outpatient (CLI) | payer MEDICARE, OTHER, SELFPAY ==
[2022-07-11 11:12] VITALS: BMI 40.4
[2023-06-16 15:54] LABS: Amphetamine Urine VISTA NEGATIVE (<1000 ng/mL); Barbiturate Urine VISTA NEGATIVE (< 200 ng/mL); Benzodiazepine Urine VISTA NEGATIVE (< 200 ng/mL); Cocaine Urine VISTA NEGATIVE (< 300 ng/mL); Ecstacy Urine VISTA NEGATIVE (< 500 ng/mL); Methadone Urine VISTA NEGATIVE (< 300 ng/mL); PCP Urine VISTA NEGATIVE (< 25 ng/mL); THC Urine VISTA NEGATIVE (< 50 ng/mL); Vista UDS pH Range 4
== END | disposition home or self-care (01) ==
PROVIDERS: PCP Internal Medicine; Referring Provider Anesthesiology Pain Medicine; Visit Provider Anesthesiology Pain Medicine
DX: F11.20 Opioid dependence, uncomplicated (principal)
CPT/HCPCS: 80307

== ENCOUNTER → 2023-07-23 | Outpatient (CLI) | payer MEDICARE, OTHER, SELFPAY ==
[2022-07-11 11:12] VITALS: BMI 40.4
--- NOTE | 2023-07-23 13:18 | RAD_ITS ---
INDICATION: Shortness of breath EXAMINATION/TECHNIQUE: X-RAY - XR Chest 2 Views COMPARISON: Prior studies dated: February 22 and May 03, 2023 FINDINGS: LINES/DEVICES: None. LUNGS: No consolidation, edema or effusion. There is a stable granuloma within the right lower lung. No pneumothorax. MEDIASTINUM AND CARDIOVASCULAR STRUCTURES: There is cardiomegaly. There are calcified mediastinal lymph nodes. BONES AND SOFT TISSUES: There is a dextroscoliosis of the lower thoracic spine. RAD/Chest PA and Lateral IMPRESSION: Cardiomegaly. Electronically Signed: Angelina Ferro MD at 14:40 EDT ,
== END | disposition home or self-care (01) ==
LOC: MTLAB 13:17
PROVIDERS: PCP Internal Medicine; Referring Provider Internal Medicine Pulmonary Disease; Visit Provider Internal Medicine Pulmonary Disease
DX: R06.02 Shortness of breath (principal)
CPT/HCPCS: 71046

== ENCOUNTER → 2023-08-04 | Outpatient (CLI) | payer MEDICARE, OTHER, SELFPAY ==
[2022-07-11 11:12] VITALS: BMI 40.4
--- NOTE | 2023-08-04 12:47 | BI_ITS ---
MAMMOGRAPHY - BILATERAL SCREENING REASON FOR EXAM: Female, 72 years old. Routine annual screening examination. PERTINENT HISTORY: Non-contributory. TECHNIQUE: Digital bilateral breast luis (3D mammographic acquisition) in the CC and MLO projections. 2-D mediolateral oblique (MLO) and craniocaudad (CC) views of both breasts were obtained. CAD: Full Field Digital Mammography with Computer Added Detection was performed. COMPARISON: Comparison is made with prior study dated June 27, 2022 and June 27, 2021. FINDINGS: Breast Composition: The breasts are almost entirely fatty. There are no dominant masses or suspicious calcifications. No other significant abnormalities are identified. There has been no significant change since the prior study. BI/SCRN MAMM (CAD)W/LUIS BILAT IMPRESSION: Stable bilateral screening mammogram. Yearly follow-up mammogram recommended. (A) ASSESSMENT CATEGORY: BIRADS Category 1: Negative. A letter regarding these results will be sent to the patient by the facility within 30 days. Approximately 10% of breast cancers are not detected by mammography. A normal mammogram should not delay biopsy of a clinically suspicious abnormality. [id number] Electronically Signed: Anam Larios MD at 14:50 EDT ,
--- NOTE | 2023-08-04 12:52 | BD_ITS ---
STUDY: DUAL ENERGY X-RAY ABSORPTIOMETRY / DXA REASON FOR EXAM: Female, 72 years old. 627.8Menopausal postmenopausal BONE DENSITY REASON FOR EXAM TECHNIQUE: Bone Mineral Density (BMD) measurements of lumbar spine and bilateral hips were obtained. COMPARISON: Comparison is made with prior study June 27, 2021. FINDINGS: Lumbar Spine (L1-L4): g/cm2 (0.935) / T-score (-1.1) / Z-score (1.2) Findings are suggestive of osteopenia with a low fracture risk. Left Femur Total: g/cm2 (0.899) / T-score (-0.4) / Z-score (1.3) Left Femoral Neck: g/cm2 (0.68) / T-score (-1.5) / Z-score (0.4) Right Femur Total: g/cm2 (0.775) / T-score (-1.4) / Z-score (0.3) Right Femoral Neck: g/cm2 (0.649) / T-score (-1.8) / Z-score (0.1) The T-Scores on the most recent prior examination were: Lumbar Spine (L1-L4): There has been worsening of bone density since the previous examination. Left Femur Total: which represents an improvement of 6.2%. Right Femur Total: which represents a worsening of 5.2%. BD/Dexa Bone Density Study IMPRESSION: The patient is considered osteopenic as outlined below according to World Gerem[employer] Organization (WHO) criteria with a moderate fracture risk. There has been worsening of bone density since the previous examination. Reference Information: The T-score is the number of standard deviations above or below the standard which is normal for young adults at their peak bone mineral density. The World Health Organization (WHO) interprets the T-scores as follows: Above -1 Normal bone density Between -1 and -2.5 Osteopenia Equal to / or below -2.5 Osteoporosis As a practical clinical guideline, osteopenia may be graded as follows: Mild -1 through -1.5 Moderate -1.6 through -2.0 Severe -2.1 through -2.4 The Z-score is the number of standard deviations above or below age-matched controls. A Z-score of less than -1.5 would be considered abnormal. References: 1. NIH Osteoporosis and Related Bone Diseases www osteo.org 2. International Society for Clinical Densitometry www iscd.org 3. National Osteoporosis Foundation www nof.org Electronically Signed: Anam Larios MD at 14:43 EDT ,
== END | disposition home or self-care (01) ==
LOC: OPBD 12:46
PROVIDERS: PCP Internal Medicine; Referring Provider Internal Medicine; Visit Provider Internal Medicine
DX: Z12.31 Encounter for screening mammogram for malignant neoplasm of breast (principal); Z78.0 Asymptomatic menopausal state
CPT/HCPCS: 77063; 77067; 77080

== ENCOUNTER 2023-08-31 15:26 | Emergency (ER) | payer MEDICARE, OTHER, SELFPAY ==
[2022-07-11 11:12] VITALS: BMI 40.4
[2023-08-31 15:27] VITALS: BP 174/76; PULSE 89; RESP 19; TEMP 36.4; O2SAT 95
--- NOTE | 2023-08-31 15:32 | EKG12_ITS ---
Test Reason : SOB Blood Pressure : / mmHG Vent. Rate : 090 BPM Atrial Rate : 090 BPM P-R Int : 158 ms QRS Dur : 158 ms QT Int : 408 ms P-R-T Axes : 059 129 040 degrees QTc Int : 499 ms Sinus rhythm with Premature supraventricular complexes Right bundle branch block Septal infarct (cited on or before 03-MAY-2023) Abnormal ECG Confirmed by IRA FELIX, KEREN ([id number]), editor managing newspaper HERNANDO NORMAN ([id number]) on 09/04/2023 2:29:51 PM Referred By: SHANTELLE/DINA Confirmed By:KEREN ROTH MD
--- NOTE | 2023-08-31 16:08 | RAD_ITS ---
INDICATION: SOB EXAMINATION/TECHNIQUE: X-RAY - XR Chest 1 View COMPARISON: Prior study dated: 07/23/2023 FINDINGS: LINES/DEVICES: None. LUNGS: The lungs are well expanded. Diffuse bronchial wall thickening. Similar retrocardiac opacity. No pleural effusion. Pleural thickening at the left apex is unchanged. No pneumothorax. MEDIASTINUM AND CARDIOVASCULAR STRUCTURES: Cardiac silhouette remains enlarged. Calcified mediastinal lymph nodes. Central airways and mediastinal contour are otherwise unremarkable. BONES AND SOFT TISSUES: Degenerative change throughout the spine with scoliotic curvature. RAD/Chest 1 View (Portable) IMPRESSION: Bronchial wall thickening could be associated with a small airways process or mild fluid overload. Persistent enlargement of the cardiac silhouette. Evidence of previous granulomatous disease. Electronically Signed: Toby Cee MD at 16:50 EDT ,
== END 2023-08-31 17:44 | disposition left against medical advice (07) ==
LOC: ED 17:46
PROVIDERS: PCP Internal Medicine
DX: R06.02 Shortness of breath (principal)
CPT/HCPCS: 71045; 93005; A4216

== ENCOUNTER → 2023-09-21 | Outpatient (CLI) | payer MEDICARE, OTHER, SELFPAY ==
[2022-07-11 11:12] VITALS: BMI 40.4
[2023-09-21 12:18] LABS: Hematocrit 37.4 % (37-47); Hemoglobin 11.3 g/dL (12.0-15.0); Mean Corp Hgb Conc 30.2 g/dL (32-36); Mean Corpuscular Hgb 29.1 pg (27.0-32.0); Mean Corpuscular Volume 96.4 fL (81-99); Mean Platelet Vol. 9.9 fl (6.2-12.0); Platelet Count 262 K/mm3 (150-450); RBC Distribution Width CV 14.7 % (11.6-14.6); RBC Distribution Width SD 51.8 fl (35.1-43.9); Red Blood Count 3.88 M/mm3 (4.2-5.4); White Blood Count 7.9 K/mm3 (4.4-11.0)
[2023-09-21 12:33] LABS: Vitamin D,25 Hydroxy 79.6 ng/mL
[2023-09-21 12:42] LABS: Albumin, Serum 3.4 g/dL (3.2-5.0); BUN 42 mg/dL (7-18); BUN/Creat Ratio 22.3 RATIO (10-20); Calcium,Total 10.5 mg/dL (8.5-10.1); Chloride 108 mmol/L (98-107); Creatinine, Serum 1.88 mg/dL (0.55-1.02); EST Glomerular Filtration Rate 28 mL/min (>60); Est Glom Filt Rate - Afr Amer 34 mL/min (>60); Glucose 128 mg/dL (74-106); Magnesium 2.1 mg/dL (1.6-2.6); Phosphorus 2.4 mg/dL (2.5-4.9); Potassium 4.1 mmol/L (3.5-5.1); Sodium Level 141 mmol/L (136-145)
[2023-09-21 12:46] LABS: PTHIN 71.8 pg/mL (18.4-80.1)
[2023-09-21 13:07] LABS: Microalbumin:Creatinine Ratio 167.6 mg/g CRE (<30 mg/g CRE)
== END | disposition home or self-care (01) ==
LOC: MTLAB 10:55
PROVIDERS: PCP Internal Medicine; Referring Provider Internal Medicine Nephrology; Visit Provider Internal Medicine Nephrology
DX: N18.4 Chronic kidney disease, stage 4 (severe) (principal); D63.1 Anemia in chronic kidney disease; E55.9 Vitamin D deficiency, unspecified
CPT/HCPCS: 36415; 80069; 82043; 82306; 82570; 83735; 83970; 85027

== ENCOUNTER 2023-11-14 02:57 | Inpatient (IN) | payer MEDICARE, OTHER, SELFPAY ==
[2022-07-11 11:12] VITALS: BMI 40.4
[2023-11-14] VITALS (13 sets, daily range): BP systolic 117–154; BP diastolic 48–93; PULSE 81–116; RESP 17–28; TEMP 36.7–38.6; O2SAT 90–100; BMI 45.3; BMI 43.7
--- NOTE | 2023-11-14 03:03 | ED.VIS.DYS ---
HPI History of Present Illness Chief Complaint: Shortness of Breath [facility] Medical History (Updated 11/14/23 @ 06:[address] Jessica Christianson MD) Allergic rhinitis Arthritis Asthma Back problem Chronic kidney disease Chronic obstructive lung disease Chronic renal failure, stage 3 (moderate) Compression fracture of L1 vertebra Constipation COVID-19 Debility Diabetes Diabetes mellitus type 2 in obese Dysphagia Essential (primary) hypertension GERD (gastroesophageal reflux disease) Gout Hearing problem High triglycerides Hyperlipidemia Hyperuricemia Intractable low back pain L1 vertebral fracture Leukocytosis Lower extremity edema Lung abscess Melanoma Morbid obesity Muscle spasm Noncompliance with CPAP treatment Obesity Obesity (BMI 30-39.9) Obstructive sleep apnea On home O2 Osteopenia Osteoporosis Osteoporosis Overactive bladder Paroxysmal atrial fibrillation Pneumonia Right bundle branch block (RBBB) Sarcoidosis Secondary pulmonary arterial hypertension Type 2 diabetes mellitus Venous insufficiency of both lower extremities Home Medications fluticasone propionate 50 mcg/actuation nasal spray,suspension 2 spray NASAL DAILY PRN PRN Congestion 06/21/17 [History Last Taken 11/19/20] febuxostat 40 mg tablet (Uloric) 40 mg PO DAILY gout 12/30/18 [History Last Taken 11/19/20] fluticasone 500 mcg-salmeterol 50 mcg/dose blistr powdr for inhalation (Advair Diskus) 1 inh inhalation BID SOB 07/17/20 [History Last Taken 11/19/20] acetaminophen 650 mg tablet,extended release (Tylenol Arthritis Pain) 650 mg PO Q12H 02/08/21 [History Last Taken Unknown] albuterol sulfate 90 mcg/actuation aerosol inhaler 2 puff inhalation Q4H PRN sob 02/08/21 [History Last Taken Unknown] aspirin 81 mg tablet,delayed release 81 mg PO DAILY #1 TAB 02/08/21 [Rx Last Taken Unknown] loratadine 10 mg tablet (Claritin) 10 mg PO DAILY Allergy 01/14/22 [History Last Taken Unknown] mirabegron 50 mg tablet,extended release 24 hr (Myrbetriq) 50 mg PO DAILY overactive bladder 01/14/22 [History Last Taken Unknown] tiotropium bromide 1.25 mcg/actuation mist for inhalation (Spiriva Respimat) 2 puff inhalation DAILY 01/14/22 [History Last Taken Unknown] fenofibrate nanocrystallized 145 mg tablet (Tricor) 145 mg PO DAILY Cholesterol 10/16/22 [History Last Taken Unknown] insulin glargine 100 unit/mL (3 mL) subcutaneous pen 38 unit subcut QPM DM 12/11/22 [History Last Taken Unknown] levalbuterol HCl 0.63 mg/3 mL solution for nebulization 0.63 mg inhalation Q6H PRN wheeze 12/11/22 [History Last Taken Unknown] lidocaine 5 % topical patch 2 patch topical DAILY pain 12/11/22 [History Last Taken Unknown] pen needle, diabetic 32 gauge x 5/32 (BD Ultra-Fine Sonam Pen Needle) #400 ea 01/22/23 [Rx Last Taken Unknown] flash glucose sensor (FreeStyle Garett 2 Sensor kit) #1 ea 02/19/23 [Rx Last Taken Unknown] montelukast 10 mg tablet (Singulair) 10 mg PO DAILY 02/22/23 [History Last Taken Unknown] ipratropium 0.5 mg-albuterol 3 mg (2.5 mg base)/3 mL nebulization soln 3 ml inhalation BID PRN wheezing #180 mL 02/24/23 [Rx Last Taken Unknown] sodium chloride 0.65 % nasal spray aerosol (Deep Sea Nasal) 2 spray NASAL TID PRN PRN NASAL DRYNESS #0 mL 02/24/23 [Rx Last Taken Unknown] omeprazole 20 mg capsule,delayed release 20 mg PO DAILY 03/03/23 [History Last Taken Unknown] tramadol 50 mg tablet 50 mg PO Q12H 03/03/23 [History Last Taken Unknown] sitagliptin phosphate 25 mg tablet (Januvia) 25 mg PO DAILY 05/03/23 [History Last Taken Unknown] pantoprazole 40 mg tablet,delayed release 40 mg PO DAILY GERD 05/07/23 [History Last Taken Unknown] diltiazem HCl 180 mg capsule,24 hr,extended release (Tiazac) 180 mg PO DAILY #90 caps 05/19/23 [Rx Last Taken Unknown] Novolog FlexPen U-100 Insulin 100 unit/mL (3 mL) subcutaneous (insulin aspart U-100) See Rx Instructions subcut TID #15 mL 06/15/23 [Rx Last Taken Unknown] Lactobacillus acidophilus (Acidophilus capsule) 10 mg PO DAILY 06/16/23 [History Last Taken Unknown] budesonide 0.5 mg/2 mL suspension for nebulization 0.5 mg inhalation BID PRN BREATHING 06/16/23 [History Last Taken Unknown] linaclotide 145 mcg capsule (Linzess) 145 mcg PO DAILY 06/16/23 [History Last Taken Unknown] mecobalamin (vitamin B12) 1,000 mcg chewable tablet 1,000 mcg PO DAILY 06/16/23 [History Last Taken Unknown] omega-3 fatty acids 1,000 mg capsule (Super [place]-3) 1,000 mg PO DAILY 06/16/23 [History Last Taken Unknown] sour scott extract 1,000 mg capsule (Tart Scott Extract) 1,200 mg PO DAILY 06/16/23 [History Last Taken Unknown] torsemide 10 mg tablet 10 mg PO DAILY 07/07/23 [History Last Taken Unknown] Allergy/AdvReac Type Severity Reaction Status Date / Time doxycycline Allergy Intermediate GI problems Verified 11/14/23 03:01 clindamycin Allergy Rash Verified 11/14/23 03:01 insulin detemir Allergy Rash Verified 11/14/23 03:01 [From Levemir U-100 Insulin] ciprofloxacin AdvReac Mild Upset Verified 11/14/23 03:01 Stomach amoxicillin trihydrate AdvReac Nausea Verified 11/14/23 03:01 [From Augmentin] potassium clavulanate AdvReac Nausea Verified 11/14/23 03:01 [From Augmentin] Family History Father Hypertension Colon cancer Cancer lung Mother Hypertension Heart disease Diabetes Other Hypercholesterolemia Melanoma Surgical History History of cholecystectomy History of knee replacement procedure of left knee History of laminectomy History of right and left heart catheterization (05/04/20) Social History Smoking Status: Former smoker how long ago did patient quit smokin years ago alcohol intake: never substance use type: does not use caffeine: Yes Type: coffee Number of servings: 2 additional social history: Uses aspirin. Does not use ibuprofen. EXAM Physical Exam Const Vital Signs: 11/14/23 03:02 11/14/23 03:07 11/14/23 03:07 Temperature 101.4 F H 101.4 F H Temperature Source Oral Oral Pulse Rate 116 H 116 H Respiratory Rate 28 H 28 H Respiratory Effort Short of Breath Respiratory Pattern Tachypnea Blood Pressure 154/93 H 154/93 H Blood Pressure Mean 113 113 Pulse Ox 90 90 Oxygen Delivery Method Room Air Nasal Cannula Nasal Cannula Oxygen Flow Rate (L/min) 3 3 3 11/14/23 03:26 11/14/23 03:52 11/14/23 06:40 Temperature 101.4 F H Temperature Source Oral Pulse Rate 116 H 85 Respiratory Rate 28 H 17 Respiratory Effort Respiratory Pattern Blood Pressure 154/93 H 117/62 Blood Pressure Mean 113 80 Pulse Ox 90 100 96 Oxygen Delivery Method Nasal Cannula Non-Rebreather Oxygen Flow Rate (L/min) 3 12 11/14/23 06:41 Temperature 99.6 F H Temperature Source Core Pulse Rate Respiratory Rate Respiratory Effort Respiratory Pattern Blood Pressure Blood Pressure Mean Pulse Ox Oxygen Delivery Method Oxygen Flow Rate (L/min) MDM MDM MDM Narrative Medical decision making narrative: HISTORY OF PRESENT ILLNESS: 72-year-old female presents with acute onset of shortness of breath, nausea vomiting, abdominal pain and fever. She is coming by her . She does not provide reliable history states that started approximately 3 hours prior to arrival. Has been constant severe. Notes she typically wears 4 L of oxygen at home. States has history of A-fib and is on a blood thinner REVIEW OF SYSTEMS: Pertinent positives: Shortness of breath, fever, vomiting, abdominal pain Pertinent negatives: Chest pain, leg swelling, syncope PHYSICAL EXAM: Nursing triage notes reviewed, Vital signs reviewed Constitutional: please see mdm HENT: MMM Eyes: Pupils equal round and reactive to light, Extraocular muscles intact Neck: No stridor, no JVD, full neck ROM Lungs: Diminished breath sounds, conversational dyspnea, increased work of breathing, scattered wheezing, diminished breath sounds likely secondary to body habitus Heart: Regular rate and rhythm, No murmurs, No rubs and No gallops, 2+ distal pulses (radial, femoral, posterior tibial) in all extremities Abdomen: Soft, diffuse abdominal tenderness, no rigidity, rebound or guarding, no obvious peritoneal signs, no palpable pulsatile abdominal masses, no auscultated abdominal bruit : No CVAT Extremities: No edema, symmetric pulses in all 4 extremities Neuro: Somnolent, oriented to person place and time. No focal neurological deficits, cranial nerves II through XII intact, 5/5 strength in all extremities. Intact sensation to light touch in all extremities, 2+ reflexes bilateral patella tendons. No ataxia. Skin: No rash or lesions noted MEDICAL DECISION MAKING: Chief Complaint: Shortness of breath External records reviewed: Imaging reviewed: Echocardiogram from January 2023 shows ejection fraction 55% Factors affecting care: COPD, type 2 diabetes, GERD, CKD Social determinants of health: none History obtained from others: None Consults: Internal medicine MDM Narrative: Patient was initially I considered the following differential diagnosis: COPD exacerbation, pneumonia, COVID, anemia, PE, ACS, arrhythmia, CHF exacerbation I obtained a broad lab and imaging workup to further elucidate etiology patient complaints. She started her sepsis workup given tachycardia, tachypnea and fever. I suspect a respiratory illness given shortness of breath, fever and time of year. Patient was obese. [place] body weight is approximately 45 kg which make her 30 cc/kg bolus approximately 1350 cc's She was given p.o. Tylenol and IV Toradol to treat fever. ALL IMAGES (IF OBTAINED) HAVE BEEN PERSONALLY REVIEWED AND INTERPRETED BY MYSELF. EKG with sinus tach, right axis deviation, right bundle branch block, no STEMI, similar to prior EKG on 08/31/2023 VBG without significant acidosis, no significant CO2 retention to suggest severe COPD exacerbation CBC with leukocytosis suggestive of systemic summation, mild anemia, no thrombocytopenia No coagulopathy Lipase elevated consistent with pancreatitis CMP without significant [place] normality, no anion gap, noted CKD, no evidence of hepatobiliary obstruction Initial high-sensitivity troponin is elevated will send delta is likely secondary to demand ischemia from fever, tachycardia and likely hypoxia Chest x-ray read reviewed myself shows evidence of right lower lobe consolidative process versus effusion likely pneumonia could be from aspiration from nausea vomiting CT scan of the abdomen pelvis shows no evidence of acute intra-abdominal pathology The synthesis of the patient's history, physical exam, labs images and vital signs suggest aspiration pneumonia this likely secondary to ?acute pancreatitis. Elevation in troponin likely secondary to hypoxia and demand ischemia. Patient did not require noninvasive or invasive ventilation during her ED stay. She is appropriate for PCU admission. Patient showed signs of sepsis so sepsis protocol was initiated. She was given a 30 cc/kg ideal body weight bolus of 1500 cc. She is given broad-spectrum antibiotics. He was admitted to PCU under Dr. Christianson for further antimicrobial therapy and monitoring. The patient and/or family, caregivers express understanding. The patient and/or family, caregivers agrees with the plan. Shared decision making: I will have a discussion with the patient and or visitors regarding risk/benefits of further testing or admission. They will be made aware of of the risk/benefits inherent in this decision they will be given the opportunity to voice understanding. Total critical care time today provided was at least 35 minutes. This excludes separately billable procedures. Critical care time (if documented) is secondary to the patient having high probability of clinically significant/life threatening deterioration in the patient's condition which required my urgent intervention. Impression: 1. Aspiration pneumonia 2. Tachycardia 3. Fever 4. Nausea vomiting 5. Abdominal pain 6. Elevated lipase 7. Elevated troponin Dispo: admit to PCU Lab Data Attestation: I reviewed the patient's lab results. Labs: Laboratory Results - last 24 hr 11/14/23 11/14/23 03:15 03:40 WBC 12.2 H RBC 3.85 L Hgb 11.2 L Hct 36.5 L MCV 94.8 MCH 29.1 MCHC 30.7 L RDW Std Deviation 50.9 H RDW Coeff of Jazzmine 14.7 H Plt Count 242 MPV 9.9 Immature Gran % (Auto) 0.700 Neut % (Auto) 85.5 H Lymph % (Auto) 3.9 L [place] % (Auto) 8.4 Eos % (Auto) 1.2 Baso % (Auto) 0.3 Absolute Neuts (auto) 10.4 H Absolute Lymphs (auto) 0.48 L Nucleated RBC % 0 Differential Comment SCANNED Stomatocytes 1+ PT 13.6 INR 1.0 APTT 27.5 Sodium 144 Potassium 3.8 Chloride 107 Carbon Dioxide 31.0 Anion Gap 6 BUN 33 H Creatinine 1.96 H Estim Creat Clear Calc 18.64 Est GFR (MDRD) Af Amer 32 L Est GFR (MDRD) Non-Af 27 L BUN/Creatinine Ratio 16.8 Glucose 170 H Lactic Acid 2.0 Calcium 9.9 Total Bilirubin 0.40 AST 30 ALT 25 Alkaline Phosphatase 48 Troponin I High Sens 56 H B-Natriuretic Peptide 107.3 H Total Protein 6.8 Albumin 3.5 Globulin 3.3 Albumin/Globulin Ratio 1.1 Lipase 170 H Urine Color Yellow Urine Clarity Clear Urine pH 7.0 Ur Specific Olivia 1.010 Urine Protein 100 H Urine Glucose (UA) Normal Urine Ketones Negative Urine Occult Blood 50 H Urine Nitrite Negative Urine Bilirubin Negative Urine Urobilinogen Normal Ur Leukocyte Esterase Negative Urine RBC 0-5 SEEN Urine WBC 0-5 SEEN Ur Squamous Epith Cells 0 SEEN Urine Bacteria 0 SEEN Urine Mucus 0 SEEN ABG Data ABG results: ABG 11/14/23 03:53 Specimen Type KURT Sample Site Not entered O2 % 3.0 VBG pH 7.40 VBG pO2 35 VBG HCO3 30 H VBG Total CO2 31 VBG O2 Sat (Calc) 66 VBG Base Excess 5 H POC Mix VBG pCO2 Pt Tmp 48.6 O2 Delivery Device Cannula Radiography Diagnostic Testing: Clinical Impression(s) from Imaging Studies Abdomen/Pelvis CT 11/14/23 03:19 IMPRESSION: undefined Chest X-Ray 11/14/23 04:20 IMPRESSION: Opacity at the right lung base concerning for infection or aspiration. Electronically Signed: Macario Prado MD at 6:03 EST , Discharge Plan Triage Chief Complaint: Shortness of Breath ED Provider: Sorin Apodaca Dx/Rx/DC Orders Prescriptions: No Action fluticasone propion-salmeterol [Advair Diskus] 500-50 mcg/dose blister with device 1 inh INHALATION BID albuterol sulfate 90 mcg/actuation HFA aerosol inhaler 2 puff INHALATION Q4H PRN (Reason: sob) acetaminophen [Tylenol Arthritis Pain] 650 mg tablet extended release 650 mg PO Q12H aspirin 81 mg tablet,delayed release (DR/EC) 81 mg PO DAILY Qty: 1 0RF levalbuterol HCl 0.63 mg/3 mL solution for nebulization 0.63 mg inhalation Q6H PRN (Reason: wheeze) lidocaine 5 % adhesive patch,medicated 2 patch topical DAILY Rx Instructions: leave on most painful area for up to 12 hrs insulin glargine 100 unit/mL (3 mL) insulin pen 38 unit SC QPM budesonide 0.5 mg/2 mL suspension for nebulization 0.5 mg inhalation BID PRN (Reason: BREATHING) fenofibrate nanocrystallized [Tricor] 145 mg tablet 145 mg PO DAILY tramadol 50 mg tablet 50 mg PO Q12H omeprazole 20 mg capsule,delayed release(DR/EC) 20 mg PO DAILY mecobalamin (vitamin B12) 1,000 mcg tablet,chewable 1,000 mcg PO DAILY omega-3 fatty acids [Super [place]-3] 1,000 mg capsule 1,000 mg PO DAILY Acidophilus Capsule 10 mg PO DAILY Linzess 145 mcg capsule 145 mcg PO DAILY Tart Scott Extract 1,000 mg capsule 1,200 mg PO DAILY torsemide 10 mg tablet 10 mg PO DAILY fluticasone propionate 1 SPRAY spray,suspension 2 spray NASAL DAILY PRN PRN (Reason: Congestion) febuxostat [Uloric] 40 MG tablet 40 mg PO DAILY pantoprazole 40 mg tablet,delayed release (DR/EC) 40 mg PO DAILY loratadine [Claritin] 10 mg Tablet 10 mg PO DAILY Myrbetriq 50 mg Tablet Extended Release 24 Hr 50 mg PO DAILY Spiriva Respimat 1.25 mcg/actuation Mist 2 puff INHALATION DAILY montelukast [Singulair] 10 mg Tablet 10 mg PO DAILY Deep Sea Nasal 0.65 % Aerosol,[place] 2 spray NASAL TID PRN PRN (Reason: NASAL DRYNESS) Qty: 0 0RF ipratropium-albuterol 0.5 mg-3 mg(2.5 mg base)/3 mL solution for nebulization 3 ml inhalation BID PRN (Reason: wheezing) Qty: 180 0RF Januvia 25 mg Tablet 25 mg PO DAILY (DME) pen needle, diabetic [BD Ultra-Fine Sonam Pen Needle] 32 gauge x 5/32 needle See Rx Instructions .ROUTE .MEDSUPPLY Qty: 400 3RF Rx Instructions: 4times daily (DME) FreeStyle Garett 2 Sensor Kit See Rx Instructions .ROUTE .MEDSUPPLY Qty: 1 0RF Rx Instructions: 1 sensor q 14 days diltiazem HCl [Tiazac] 180 mg capsule,extended release 24 hr 180 mg PO DAILY Qty: 90 3RF insulin aspart U-100 [Novolog FlexPen U-100 Insulin] 100 unit/mL (3 mL) insulin pen See Rx Instructions subcut TID MDD 60 Qty: 15 0RF Rx Instructions: 8-8-17 with meals subcut three times a day; Primary Care Provider: Veronica Oquendo Referrals: Veronica Oquendo, [Primary Care Provider] -
--- NOTE | 2023-11-14 03:17 | EKG12_ITS ---
Test Reason : SOB Blood Pressure : / mmHG Vent. Rate : 103 BPM Atrial Rate : 103 BPM P-R Int : 196 ms QRS Dur : 162 ms QT Int : 402 ms P-R-T Axes : 081 119 052 degrees QTc Int : 526 ms Sinus tachycardia Right bundle branch block Lateral infarct , age undetermined Abnormal ECG Confirmed by YOUSUF FELIX, TOR ([id number]), multimedia editor KATHI COLBERT ([id number]) on 11/16/2023 1:38:18 P M Referred By: DANNY Confirmed By:TIM TO MD
--- NOTE | 2023-11-14 03:19 | CT_ITS ---
EXAM: CT abdomen and pelvis without contrast HISTORY: abdominal pain, vomiting TECHNIQUE: No intravenous contrast. A radiation dose optimization technique was used for this scan. COMPARISON: CT abdomen pelvis July 05, 2021. LIMITATIONS: None. LOWER CHEST: Tubular opacity in the left lower lobe is stable since the prior exam. Calcified granulomata. Mild chronic interstitial changes in the lung bases bilaterally. Mild nodular opacities in the right lower lobe. LIVER: Normal. GALLBLADDER: Not visualized. BILE DUCTS: Normal. PANCREAS: Normal. SPLEEN: Normal. ADRENAL GLANDS: Normal. KIDNEYS/URETERS/BLADDER: Atrophic left kidney. 2 cm lesion at the superior pole of the left kidney is inconsistent with a simple cyst. Few nonobstructing right renal stones. No obstructing ureteral stones or hydronephrosis. AORTA: Normal caliber. BOWEL/MESENTERY: No evidence of colitis. No small bowel obstruction. APPENDIX: Normal. PERITONEUM: Normal. REPRODUCTIVE ORGANS: Hysterectomy. BONES/SOFT TISSUES: No acute fracture. Postsurgical changes in the lumbosacral spine as well as vertebroplasty. OTHER: None. CONCLUSION: No small bowel obstruction. Nodular opacities in the right lung base concerning for mild infection or aspiration. Nonobstructing right renal stones. No hydronephrosis. Atrophic left kidney. 2 cm lesion in the left kidney is possibly solid. Renal cell carcinoma is not excluded. Nonemergent renal ultrasound or renal mass protocol CT is recommended. Electronically Signed: Macario Prado MD at 6:22 EST , CT/Abdomen/Pelvis without Cont IMPRESSION: undefined
[2023-11-14] MEDS: Ondansetron 4 MG/2 ML Vial IV (03:38)
[2023-11-14] MEDS: 0.9% Normal Saline (500mL Bag) 500 ML 999 ML IV (03:39)
[2023-11-14] MEDS: Acetaminophen 325 MG Tablet 650 MG PO (03:39)
[2023-11-14] MEDS: Ketorolac 15 MG/ML Vial IV (03:39)
[2023-11-14 03:50] LABS: Bacteria 0 SEEN /hpf (None Seen); Mucous, Urine 0 SEEN /hpf (<or=2+); Squamous Epithelial Cells - UA 0 SEEN /hpf (5-10)
[2023-11-14 03:58] LABS: Blood Gas Specimen Type VEN; O2 Delivery Device Cannula; SITE Not entered; VBG BASE EXCESS 5 mmol/L (-1.0-3.5); VBG Bicarbonate 30 mmol/L (22-26); VBG PO2 35 mmHg (25-40); VBG SO2 66 % (50-70); VBG TCO2 31 mmol/L (23-33); VBG pCO2 48.6 mmHg (41-51)
[2023-11-14 03:59] LABS: Absolute Lymphocyte Count 0.48 X10^3/uL (0.83-4.51); Absolute Neutrophil Count 10.4 X10^3/uL (2.0-7.7); Basophil# 0.04 X10^3/uL; Basophil% 0.3 % (0-1); Eosinophil# 0.15 X10^3/uL; Eosinophils% 1.2 % (0-5); Hematocrit 36.5 % (37-47); Hemoglobin 11.2 g/dL (12.0-15.0); Lymphocyte # 0.48 X10^3/ul (0.83-4.51); Lymphocyte % 3.9 % (19-41); Mean Corp Hgb Conc 30.7 g/dL (32-36); Mean Corpuscular Hgb 29.1 pg (27.0-32.0); Mean Corpuscular Volume 94.8 fL (81-99); Mean Platelet Vol. 9.9 fl (6.2-12.0); Monocyte# 1.03 X10^3/uL; Monocyte% 8.4 % (0-10); NRBC Flagged by Analyzer 0 % (0-5); Neutrophil # 10.43 X10^3/uL (2.7-7.7); Neutrophil % 85.5 % (47-70); POSITIVE DIFFERENTIAL YES; Platelet Count 242 K/mm3 (150-450); RBC Distribution Width CV 14.7 % (11.6-14.6); RBC Distribution Width SD 50.9 fl (35.1-43.9); Red Blood Count 3.85 M/mm3 (4.2-5.4); White Blood Count 12.2 K/mm3 (4.4-11.0)
[2023-11-14 04:13] LABS: Differential Indicated SCAN CRITERIA MET; Prothrombin Time (Protime)PT. 13.6 SECONDS (11.7-14.9)
[2023-11-14 04:14] LABS: Partial Thromboplast Time 27.5 Seconds (24.1-36.2)
--- NOTE | 2023-11-14 04:20 | RAD_ITS ---
INDICATION: SOB EXAMINATION: Frontal view of the chest COMPARISON: Chest x-ray August 31, 2023. FINDINGS: Frontal view of the chest was obtained. The cardiac silhouette is mildly enlarged. Opacity at the right lung base. No pneumothorax. Calcified granulomata bilaterally. Scoliosis. RAD/Chest 1 View (Portable) IMPRESSION: Opacity at the right lung base concerning for infection or aspiration. Electronically Signed: Macario Prado MD at 6:03 EST ,
[2023-11-14 04:25] LABS: ALB/GLOB Ratio 1.1 RATIO (0.9-2.4); AST(SGOT) 30 U/L (15-37); Alanine Aminotransfer ALT/SGPT 25 U/L (13-56); Albumin, Serum 3.5 g/dL (3.2-5.0); Alkaline Phosphatase 48 U/L (45-117); Anion Gap 6 (5-15); BUN 33 mg/dL (7-18); BUN/Creat Ratio 16.8 RATIO (10-20); Calcium,Total 9.9 mg/dL (8.5-10.1); Chloride 107 mmol/L (98-107); Creatinine, Serum 1.96 mg/dL (0.55-1.02); EST Glomerular Filtration Rate 27 mL/min (>60); Est Glom Filt Rate - Afr Amer 32 mL/min (>60); Estimated Creatinine Clearance 18.64 ml/min; Globulin 3.3 g/dL (2.2-4.2); Glucose 170 mg/dL (74-106); Lipase 170 U/L (13-75); Potassium 3.8 mmol/L (3.5-5.1); Protein, Total 6.8 g/dL (6.4-8.2); Sodium Level 144 mmol/L (136-145); Troponin-I HS 56 pg/mL (3.0-54.0)
[2023-11-14 04:29] LABS: Color, Urine Yellow (Yellow); Glucose, Dipstick Normal (Normal); Ketone-Dipstick Negative (Negative); Leukocyte Esterase-Dipstick Negative /ul (Negative); Nitrite-Dipstick Negative (Negative); Occult Blood-Urine 50 /ul (Negative); Protein-Dipstick 100 mg/dl (Negative); Urine Bilirubin Dipstick Negative (Negative); Urine Clarity Clear (Clear); Urine Urobilinogen Normal (Normal)
[2023-11-14 04:31] LABS: Red Blood Cells-Urine 0-5 SEEN /hpf (0-5)
[2023-11-14 04:32] LABS: White Blood Cells 0-5 SEEN /hpf (0-5)
[2023-11-14 04:36] LABS: BNP,B-Type NATRIURETIC PEPTIDE 107.3 pg/mL (0-100)
[2023-11-14] MEDS: Cefepime HCl 2 GM in 0.9% Normal Saline (100mL MB+) 100 ML IV (04:53)
[2023-11-14] MEDS: 0.9% Normal Saline (1000mL) 1,000 ML 999 ML IV (05:01)
[2023-11-14] MEDS: Vancomycin HCl 1,500 MG in 0.9% Normal Saline (500mL Bag) 500 ML 250 MG IV (05:02)
[2023-11-14 05:07] LABS: Differential Comment SCANNED; Stomatocyte 1+
--- NOTE | 2023-11-14 06:37 | PCM.HP.STD ---
HPI - General General Date of Admission: 11/14/23 Date of Service: 11/14/23 Chief Complaint: Dyspnea, cough, wheezing, N/V, abdominal pain. HPI Narrative The patient is a 72 y/o F w/ PMHx: Morbid Obesity, Chronic COPD/Asthma w/ Chronic Hypoxic Respiratory Failure (3-4L NC) complicated by Pulmonary HTN, Diabetes mellitus type II, CKD stage III unclear subtype, PAF, CONCEPCION noncompliant with CPAP, Sarcoidosis, BL LE venous insufficiency/PVD who presents to the [facility] ED on 11/14/2023 with history of dyspnea, mild nonproductive cough as well as intermittent wheezing in addition to nausea, emesis, abdominal pain and fever starting day prior to presentation brought in by her although initially reports symptoms onset 3 hours prior to her arrival but reports that it has been constant and more severe prompting eventual ED evaluation. She does report that her was ill approximately 2 weeks prior with an upper respiratory infection. Workup in the ED included T101.4, rate 116, BP 154/93, respiratory rate 28, 90% on 3 L nasal cannula--> T11.4, heart rate 116, BP 154/93, respiratory rate 28, 100% on a nonrebreather 12 L, CBC with a BC 12.2, 11.2, MCV 94.8, platelet 242 with left shift and lymphopenia, unremarkable coags, VBG with bicarb 30, CMP with BUN/creatinine 53/1.96, glucose 170, lactic acid 2.0, troponin 56, BNP 107.3, urinalysis not marked appearing with no obvious evidence of infection, blood culture x 2 pending per ED, urine culture pending per ED, rapid SARS COVID and influenza antigen negative, CT abdomen and pelvis no evidence of any bowel obstruction, nodular opacities right lung base concerning for mild infection or aspiration, nonobstructing right renal stones with no hydronephrosis, atrophic left kidney with a 2 cm lesion in the left kidney possibly solid with nonemergent renal ultrasound, chest x-ray w/ opacity at the right lung base concerning for infection or aspiration, EKG with sinus tachycardia with right bundle branch block with no acute evidence of ischemia. In the ED patient administered 30 cc/kg IV fluid bolus, Toradol 50 mg IV x 1, Zofran 4 mg IV x 1, cefepime 2 g IV x 1, vancomycin IV. [facility] Medical History Allergic rhinitis Arthritis Asthma Back problem Chronic kidney disease Chronic obstructive lung disease Chronic renal failure, stage 3 (moderate) Compression fracture of L1 vertebra Constipation COVID-19 Debility Diabetes Diabetes mellitus type 2 in obese Dysphagia Essential (primary) hypertension GERD (gastroesophageal reflux disease) Gout Hearing problem High triglycerides Hyperlipidemia Hyperuricemia Intractable low back pain L1 vertebral fracture Leukocytosis Lower extremity edema Lung abscess Melanoma Morbid obesity Muscle spasm Noncompliance with CPAP treatment Obesity Obesity (BMI 30-39.9) Obstructive sleep apnea On home O2 Osteopenia Osteoporosis Osteoporosis Overactive bladder Paroxysmal atrial fibrillation Pneumonia Right bundle branch block (RBBB) Sarcoidosis Secondary pulmonary arterial hypertension Type 2 diabetes mellitus Venous insufficiency of both lower extremities Home Medications fluticasone propionate 50 mcg/actuation nasal spray,suspension 2 spray NASAL DAILY PRN PRN Congestion 06/21/17 [History Last Taken 11/19/20] febuxostat 40 mg tablet (Uloric) 40 mg PO DAILY gout 12/30/18 [History Last Taken 11/19/20] fluticasone 500 mcg-salmeterol 50 mcg/dose blistr powdr for inhalation (Advair Diskus) 1 inh inhalation BID SOB 07/17/20 [History Last Taken 11/19/20] acetaminophen 650 mg tablet,extended release (Tylenol Arthritis Pain) 650 mg PO Q12H 02/08/21 [History Last Taken Unknown] albuterol sulfate 90 mcg/actuation aerosol inhaler 2 puff inhalation Q4H PRN sob 02/08/21 [History Last Taken Unknown] aspirin 81 mg tablet,delayed release 81 mg PO DAILY #1 TAB 02/08/21 [Rx Last Taken Unknown] loratadine 10 mg tablet (Claritin) 10 mg PO DAILY Allergy 01/14/22 [History Last Taken Unknown] mirabegron 50 mg tablet,extended release 24 hr (Myrbetriq) 50 mg PO DAILY overactive bladder 01/14/22 [History Last Taken Unknown] tiotropium bromide 1.25 mcg/actuation mist for inhalation (Spiriva Respimat) 2 puff inhalation DAILY 01/14/22 [History Last Taken Unknown] fenofibrate nanocrystallized 145 mg tablet (Tricor) 145 mg PO DAILY Cholesterol 10/16/22 [History Last Taken Unknown] insulin glargine 100 unit/mL (3 mL) subcutaneous pen 38 unit subcut QPM DM 12/11/22 [History Last Taken Unknown] levalbuterol HCl 0.63 mg/3 mL solution for nebulization 0.63 mg inhalation Q6H PRN wheeze 12/11/22 [History Last Taken Unknown] lidocaine 5 % topical patch 2 patch topical DAILY pain 12/11/22 [History Last Taken Unknown] pen needle, diabetic 32 gauge x 5/32 (BD Ultra-Fine Sonam Pen Needle) #400 ea 01/22/23 [Rx Last Taken Unknown] flash glucose sensor (FreeStyle Garett 2 Sensor kit) #1 ea 02/19/23 [Rx Last Taken Unknown] montelukast 10 mg tablet (Singulair) 10 mg PO DAILY 02/22/23 [History Last Taken Unknown] ipratropium 0.5 mg-albuterol 3 mg (2.5 mg base)/3 mL nebulization soln 3 ml inhalation BID PRN wheezing #180 mL 02/24/23 [Rx Last Taken Unknown] sodium chloride 0.65 % nasal spray aerosol (Deep Sea Nasal) 2 spray NASAL TID PRN PRN NASAL DRYNESS #0 mL 02/24/23 [Rx Last Taken Unknown] omeprazole 20 mg capsule,delayed release 20 mg PO DAILY 03/03/23 [History Last Taken Unknown] tramadol 50 mg tablet 50 mg PO Q12H 03/03/23 [History Last Taken Unknown] sitagliptin phosphate 25 mg tablet (Januvia) 25 mg PO DAILY 05/03/23 [History Last Taken Unknown] pantoprazole 40 mg tablet,delayed release 40 mg PO DAILY GERD 05/07/23 [History Last Taken Unknown] diltiazem HCl 180 mg capsule,24 hr,extended release (Tiazac) 180 mg PO DAILY #90 caps 05/19/23 [Rx Last Taken Unknown] Novolog FlexPen U-100 Insulin 100 unit/mL (3 mL) subcutaneous (insulin aspart U-100) See Rx Instructions subcut TID #15 mL 06/15/23 [Rx Last Taken Unknown] Lactobacillus acidophilus (Acidophilus capsule) 10 mg PO DAILY 06/16/23 [History Last Taken Unknown] budesonide 0.5 mg/2 mL suspension for nebulization 0.5 mg inhalation BID PRN BREATHING 06/16/23 [History Last Taken Unknown] linaclotide 145 mcg capsule (Linzess) 145 mcg PO DAILY 06/16/23 [History Last Taken Unknown] mecobalamin (vitamin B12) 1,000 mcg chewable tablet 1,000 mcg PO DAILY 06/16/23 [History Last Taken Unknown] omega-3 fatty acids 1,000 mg capsule (Super [place]-3) 1,000 mg PO DAILY 06/16/23 [History Last Taken Unknown] sour scott extract 1,000 mg capsule (Tart Scott Extract) 1,200 mg PO DAILY 06/16/23 [History Last Taken Unknown] torsemide 10 mg tablet 10 mg PO DAILY 07/07/23 [History Last Taken Unknown] Allergy/AdvReac Type Severity Reaction Status Date / Time doxycycline Allergy Intermediate GI problems Verified 11/14/23 03:01 clindamycin Allergy Rash Verified 11/14/23 03:01 insulin detemir Allergy Rash Verified 11/14/23 03:01 [From Levemir U-100 Insulin] ciprofloxacin AdvReac Mild Upset Verified 11/14/23 03:01 Stomach amoxicillin trihydrate AdvReac Nausea Verified 11/14/23 03:01 [From Augmentin] potassium clavulanate AdvReac Nausea Verified 11/14/23 03:01 [From Augmentin] Family History Father Hypertension Colon cancer Cancer lung Mother Hypertension Heart disease Diabetes Other Hypercholesterolemia Melanoma Surgical History History of cholecystectomy History of knee replacement procedure of left knee History of laminectomy History of right and left heart catheterization (05/04/20) Social History Smoking Status: Former smoker how long ago did patient quit smokin years ago alcohol intake: never substance use type: does not use caffeine: Yes Type: coffee Number of servings: 2 additional social history: Uses aspirin. Does not use ibuprofen. ROS ROS Narrative Admission Review of Systems: CONSTITUTIONAL: No weight loss, + fever, chills, weakness or fatigue. HEENT: + Congestion, rhinorrhea. Eyes: No visual loss, blurred vision, double vision or yellow sclerae. Ears, Nose, Throat: No hearing loss, sneezing. SKIN: No rash or itching, lesions, wounds. CARDIOVASCULAR: No chest pain, chest pressure or chest discomfort, palpitations, edema, orthopnea, syncopal events. RESPIRATORY: + shortness of breath, cough without marked sputum, wheezing. No hemoptysis. GASTROINTESTINAL: + anorexia, nausea, vomiting, abdominal pain. No diarrhea, melena, BRBPR. GENITOURINARY: No dysuria, frequency, urgency or retention. NEUROLOGICAL: No headache, dizziness, syncope, paralysis, ataxia, numbness or tingling in the extremities, focal weakness, change in bowel or bladder control, seizure. MUSCULOSKELETAL: + muscle, back pain, joint pain or stiffness. HEMATOLOGIC: + anemia, bleeding or bruising. LYMPHATICS: No enlarged nodes. No history of splenectomy. PSYCHIATRIC: No history of depression or anxiety. ENDOCRINOLOGIC: No reports of sweating, cold or heat intolerance. No polyuria or polydipsia. ALLERGIES: + history of asthma, rhinitis. Vital Signs Vital Signs Vital Signs: 11/14/23 03:02 11/14/23 03:07 11/14/23 03:07 Temperature 101.4 F H 101.4 F H Temperature Source Oral Oral Pulse Rate 116 H 116 H Respiratory Rate 28 H 28 H Respiratory Effort Short of Breath Respiratory Pattern Tachypnea Blood Pressure 154/93 H 154/93 H Blood Pressure Mean 113 113 Pulse Ox 90 90 Oxygen Delivery Method Room Air Nasal Cannula Nasal Cannula Oxygen Flow Rate (L/min) 3 3 3 11/14/23 03:26 11/14/23 03:52 Temperature 101.4 F H Temperature Source Oral Pulse Rate 116 H Respiratory Rate 28 H Respiratory Effort Respiratory Pattern Blood Pressure 154/93 H Blood Pressure Mean 113 Pulse Ox 90 100 Oxygen Delivery Method Nasal Cannula Non-Rebreather Oxygen Flow Rate (L/min) 3 12 Weight Weight: 232 lb 5.875 oz Body Mass Index (BMI) 45.3 Physical Exam Narrative Physical Examination: General: Awake, alert, oriented x 3 and cooperative, laying in the ED bed, fatigued, improved she notes, on supplemental oxygen. Skin: Normal color, normal turgor, no icterus, no cyanosis except for bilateral lower extremity chronic venous stasis skin changes. HEENT: AT/NC, EOMI, PERRLA, mildly dry MM, no carotid bruits or JVD noted; however thickened neck makes evaluation difficult. Lungs: Diminished, greater bases, R>L, mildly increased RR, mild accessory muscle usage but currently improved with no evidence of respiratory distress, occasional wheezing, no rales. Heart: Tachycardic rate and rhythm; no gallop, rub audible. Abdomen: Soft, morbidly obese, epigastric discomfort, mild RLQ discomfort without no rebound or guard, no obvious distention or HSM however habitus makes evaluation difficult, distant BS. Extremities: No cyanosis, no clubbing, bilateral lower extremity chronic venous stasis skin changes, chronic pedal to mid welch pitting edema. Neurological: Patient awake, alert, oriented as noted, cognitive function intact; pupils equally reactive to light and accommodation, cranial nerves grossly normal, moving all 4 extremities, no focal deficits, strength severely globally decreased secondary to acute presentation. Psychiatric: Affect appears fatigued, notes feeling improved since initial ED arrival, no acute evidence of depressive or anxiety feelings. Results Lab / Micro Data 11/14/23 03:15 11/14/23 03:15 Labs: Laboratory Results - last 24 hr 11/14/23 03:15: WBC 12.2 H, RBC 3.85 L, Hgb 11.2 L, Hct 36.5 L, MCV 94.8, MCH 29.1, MCHC 30.7 L, RDW Std Deviation 50.9 H, RDW Coeff of [place] 14.7 H, Plt Count 242, MPV 9.9, Immature Gran % (Auto) 0.700, Neut % (Auto) 85.5 H, Lymph % (Auto) 3.9 L, [place] % (Auto) 8.4, Eos % (Auto) 1.2, Baso % (Auto) 0.3, Absolute Neuts (auto) 10.4 H, Absolute Lymphs (auto) 0.48 L, Nucleated RBC % 0, Differential Comment SCANNED, Stomatocytes 1+, PT 13.6, INR 1.0, APTT 27.5, Sodium 144, Potassium 3.8, Chloride 107, Carbon Dioxide 31.0, Anion Gap 6, BUN 33 H, Creatinine 1.96 H, Estim Creat Clear Calc 18.64, Est GFR (MDRD) Af Amer 32 L, Est GFR (MDRD) Non-Af 27 L, BUN/Creatinine Ratio 16.8, Glucose 170 H, Lactic Acid 2.0, Calcium 9.9, Total Bilirubin 0.40, AST 30, ALT 25, Alkaline Phosphatase 48, Troponin I High Sens 56 H, Total Protein 6.8, Albumin 3.5, Globulin 3.3, Albumin/Globulin Ratio 1.1, Lipase 170 H, Urine Color Yellow, Urine Clarity Clear, Urine pH 7.0, Ur Specific [place] 1.010, Urine Protein 100 H, Urine Glucose (UA) Normal, Urine Ketones Negative, Urine Occult Blood 50 H, Urine Nitrite Negative, Urine Bilirubin Negative, Urine Urobilinogen Normal, Ur Leukocyte Esterase Negative, Urine RBC 0-5 SEEN, Urine WBC 0-5 SEEN, Ur Squamous Epith Cells 0 SEEN, Urine Bacteria 0 SEEN, Urine Mucus 0 SEEN 11/14/23 03:40: B-Natriuretic Peptide 107.3 H Micro: Microbiology 11/14/23 03:27 Nasal Secretion SARS-CoV-2 & FLU Antigen (Rapid) - Final ABG Data ABG results: ABG 11/14/23 03:53 Specimen Type KURT Sample Site Not entered O2 % 3.0 VBG pH 7.40 VBG pO2 35 VBG HCO3 30 H VBG Total CO2 31 VBG O2 Sat (Calc) 66 VBG Base Excess 5 H POC Mix VBG pCO2 Pt Tmp 48.6 O2 Delivery Device Cannula Imagaing Radiology Impression Abdomen/Pelvis CT 11/14/23 03:19 IMPRESSION: undefined Chest X-Ray 11/14/23 04:20 IMPRESSION: Opacity at the right lung base concerning for infection or aspiration. Electronically Signed: Macario Prado MD at 6:03 EST , Assessment & Plan Assessment/Plan (1) Pancreatitis: PLAN: Plan The patient is a 72 y/o F w/ PMHx: Morbid Obesity, Chronic COPD/Asthma w/ Chronic Hypoxic Respiratory Failure (3-4L NC) complicated by Pulmonary HTN, Diabetes mellitus type II, CKD stage III unclear subtype, PAF, CONCEPCION noncompliant with CPAP, Sarcoidosis, BL LE venous insufficiency/PVD who presents to the [facility] ED on 11/14/2023 with history of dyspnea, mild nonproductive cough as well as intermittent wheezing in addition to nausea, emesis, abdominal pain and fever starting day prior to presentation brought in by her although initially reports symptoms onset 3 hours prior to her arrival but reports that it has been constant and more severe prompting eventual ED evaluation. She does report that her was ill approximately 2 weeks prior with an upper respiratory infection. #1. Acute Aspiration likely secondary to Nausea/Emesis as noted with concurrent Acute on Chronic COPD/Asthma w/ Acute on Chronic Hypoxic Respiratory Failure (3-4L NC) and suspect potentially recent upper respiratory infection/viral syndrome complicated by Pulmonary HTN: Given significant clinical improvement since initial ED arrival will admit to PCU, Will maintain on oxygen with wean as tolerated to home oxygen supplementation, continue ATC duonebs, PRN albuterol, maintained on IV Zosyn, full respiratory viral panel requested, HOB, IS parameters, IV solumedrol. #2. Acute pancreatitis w/ abdominal pain, N/V: Lipase 170, will maintain on IVFs, NPO, maintain on PPI, IV/po pain control, trend lipase, CMP. Status postcholecystectomy status, will obtain FLP in AM, trend lipase and CMP. #3. Indeterminate cardiac enzyme, suspect likely from demand with acute hypoxic presentation as well as acute presentation as noted above: Initially troponin 56, EKG in ED sinus tachycardia with no acute evidence of ischemia, CXR w/ opacity at the right lung base concerning for infection or aspiration, initial trop 56. Will maintain on a monitored bed to assure no acute myocardial infarction with serial cardiac enzymes and EKGs. FLP in AM. Magnesium level requested. Echocardiogram requested. ASA. #4. Incidental 2 cm lesion in the left kidney, possibly solid: CT imaging with as noted 2 cm lesion in left kidney possibly solid, will obtain renal ultrasound to further assess. #6. CKD stage III unclear subtype: Admission BUN/Cr 33/1.96, prior baseline creatinine noted to be primarily 1.6-2.1, will continue to trend CMP. #7. Bilateral lower extremity edema, underlying venous insufficiency/PVD: Patient reports chronic swelling, will place neck Michi wraps with elevation. #8. PAF: We will continue patient on diltiazem, not chronically anticoagulated per current list. #9. Hypertension: Continue home regimen including torsemide, diltiazem PRN hydralazine. #10. Hyperlipidemia: We will continue patient on fenofibrate regimen. #11. Diabetes mellitus type II: Hold oral home regimen, will continue patient home insulin however if blood sugar trending concerning may certainly decrease to half dose or hold insulin given n.p.o. status, given NPO will maintain q6 hour accu checks w/ ISS. #12. Chronic normocytic anemia: Admission hemoglobin 11.2, baseline 10-11 range, stable, continue to trend. #13. Former tobacco use: Encourage continued tobacco cessation. #14. Morbid Obesity: Weight loss and lifestyle changes encouraged. #15. GERD: We will continue home PPI. #16. Allergic rhinitis: We will continue patient home loratadine, fluticasone and Singulair regimen. #17. DVT prophylaxis: Heparin. #18. CODE status: Patient HCPOA is her who is present and living will is currently in place. Discussed CODE status at length including difference between FULL code, DNR-CCA and DNR-CC status. Following discussions about the differences in these status, requested Full Code status. Advanced Care Planning Face to Face Time: 16 minutes. Charges/Coding Visit Charges Inpatient E&M: 03827 Init Hosp L3 Procedures Hospitalists Procedures: 57163 Advncd Care Plan 30 Min
--- NOTE | 2023-11-14 06:51 | NURSING ---
PCU WHITE ASPIRATION PNEUMONIA
[2023-11-14 07:19] LABS: Magnesium 1.5 mg/dL (1.6-2.6)
[2023-11-14 07:47] LABS: Reflex Lactate? Y
--- NOTE | 2023-11-14 08:10 | US_ITS ---
STUDY: RENAL ULTRASOUND - COMPLETE REASON FOR EXAM: Female, 72 years old. renal mass-LT TECHNIQUE: Ultrasound evaluation of the kidneys was performed with real-time and static burdick-scale imaging. COMPARISON: 02/23/2023, CT 11/14/2023 FINDINGS: RIGHT KIDNEY: Normal location of the right kidney, which is normal in size. The right kidney measures 13.3 cm. There is a normal cortex of the right kidney. The renal cortex measures 2.0 cm. There is no right renal mass or cyst. 6 mm echogenic focus in the midsection of the right kidney may represent a nonobstructing stone. There is no right hydronephrosis. DISTAL RIGHT URETER: There is non-visualization of the distal right ureter. There is no demonstrated right ureterovesical junction calculus. There is a visualized right ureteral jet. LEFT KIDNEY: with moderate renal atrophy. The left kidney measures 7.9 cm. There is diffuse thinning of the renal cortex. The renal cortex measures 0.7 cm. 2.5 cm round hypoechoic mass in the upper pole the left kidney may represent a solid or cystic mass and correlation with renal mass protocol CT or MRI is recommended. 1 cm cyst in the upper pole the left kidney. There are no left renal calculi. There is no left hydronephrosis. DISTAL LEFT URETER: There is non-visualization of the distal left ureter. There is no demonstrated left ureterovesical junction calculus. There is a visualized left ureteral jet. BLADDER: Nondistended due to Winter catheter.. US/Kidney and Bladder IMPRESSION: 1. No hydronephrosis to suggest obstruction. 2. Possible 6 mm nonobstructing right renal stone. 3. Moderate left renal atrophy likely from chronic renal artery stenosis. 4. 2.5 cm hypoechoic solid or cystic mass in the upper pole left kidney and correlation with renal mass protocol CT or MRI may be useful. Electronically Signed: Ag Stanton MD at 16:21 EST ,
--- NOTE | 2023-11-14 08:10 | ECHOCS_ITS ---
Reason For Study: CAD/ASHD Procedure This was a 2D Doppler, Color Flow transthoracic echocardiogram. The study was technically difficult. Contrast injection was performed. Exam performed in department. Left Ventricle Normal LV size. Mild concentric left ventricular hypertrophy. The estimated ejection fraction is 55 %. Stage 1 diastolic dysfunction. Right Ventricle Normal RV size. Normal systolic function. Atria The left and right atria are normal. Mitral Valve Mild mitral annular calcification. Trivial mitral valve insufficiency. Tricuspid Valve Normal tricuspid valve. Trivial tricuspid valve insufficiency. Right ventricular systolic pressure estimated to be 29 mmHg. Aortic Valve Trisinus/trileaflet aortic valve. Mild focal aortic valve calcification. Aortic sclerosis, no stenosis. Pulmonic Valve Normal pulmonic valve. Trivial pulmonic valve insufficiency. Great Vessels Normal aortic root. Pericardium/Pleural Trivial pericardial effusion. There are no echocardiographic indications of cardiac tamponade. Medication Diluted definity 3ml given slow IV push to enhance endocardial definition. MMode/2D Measurements & Calculations LVIDd: 5.8 cm IVSd: 1.3 cm Ao root diam: 3.1 cm LVIDs: 3.7 cm LVPWd: 1.4 cm LA dimension: 5.0 cm RVDd: 3.9 cm FS: 35.9 % LAV(MOD-bp): 68.9 ml LA A4 area: 19.6 cm2 RA A4 area: 18.7 cm2 LAV(MOD-bp) Indexed: 35.4 ml/m2 LAV(MOD-sp2): 76.3 ml LAV(MOD-sp4): 55.2 ml TAPSE: 2.1 cm Time Measurements MV dec time: 0.15 sec Doppler Measurements & Calculations MV E max kam: 103.8 cm/sec Lat Peak E' Kam: 9.0 cm/sec Med Peak E' Kam: 8.5 cm/sec MV A max kam: 97.9 cm/sec E/E' lat: 11.5 E/E' med: 12.1 MV E/A: 1.1 MV V2 max: 121.7 cm/sec MV P1/2t max kam: 122.4 cm/sec Ao V2 max: 185.9 cm/sec MV max P.9 mmHg MV P1/2t: 54.9 msec Ao max P.8 mmHg MV V2 mean: 67.3 cm/sec MV dec slope: 653.5 cm/sec2 Ao V2 mean: 126.5 cm/sec MV mean P.2 mmHg MVA(P1/2t): 4.0 cm2 Ao mean P.3 mmHg MV V2 VTI: 31.5 cm Ao V2 VTI: 38.7 cm AV (velocity ratio): 0.68 LV V1 max: 120.8 cm/sec MR max kam: 608.1 cm/sec PA V2 max: 103.3 cm/sec LV V1 max P.8 mmHg MR max P.9 mmHg LV V1 mean P.2 mmHg LV V1 mean: 83.5 cm/sec LV V1 VTI: 26.4 cm TR max kam: 254.8 cm/sec TR max P.0 mmHg ECHO/Echo Complete W/ Contrast Interpretation Summary The estimated ejection fraction is 55 %. Stage 1 diastolic dysfunction. Mild concentric left ventricular hypertrophy. Trivial pericardial effusion., No hemodynamic compromise No significant change from prior echocardiogram The study was technically difficult. Contrast injection was performed. Ordering Physician: Jessica Christianson Referring Physician: Veronica Oquendo M.D. Performed By: Dre Merritt RCS
--- NOTE | 2023-11-14 08:40 | NURSING ---
pts blood sugar via pts dexcom was 142
[2023-11-14 08:52] LABS: Lactic Acid 1.4 mmol/L (0.4-1.9)
[2023-11-14 08:58] LABS: Troponin-I HS 88 pg/mL (3.0-54.0)
[2023-11-14] MEDS: 0.9% Normal Saline (1000mL) 1,000 ML 125 ML IV ×2 (08:58→16:44)
[2023-11-14 10:23] LABS: Troponin-I HS 93 pg/mL (3.0-54.0)
[2023-11-14] MEDS: Menthol/Lanolin/Calamine/Znox 113 GM Tube 1 APPLIC TOPICAL ×3 (10:46→16:44)
[2023-11-14] MEDS: Furosemide 20 MG Tablet PO (10:47)
[2023-11-14] MEDS: Pantoprazole Sodium 40 MG Tablet PO (10:47)
[2023-11-14] MEDS: dilTIAZem CD 180 MG Capsule PO (10:49)
[2023-11-14] MEDS: Montelukast 10 MG Tablet PO (10:49)
[2023-11-14] MEDS: Loratadine 10 MG Tablet PO (10:49)
[2023-11-14] MEDS: Heparin Injection (Vial) 5,000 UNIT/ML VIAL 5000 UNIT SC (10:50)
[2023-11-14] MEDS: Febuxostat 40 MG TABLET PO (10:50)
[2023-11-14] MEDS: Aspirin E.C. 81 MG Tablet PO (10:51)
[2023-11-14] MEDS: Lidocaine 5% Patch 2 PATCH TOPICAL (10:52)
[2023-11-14] MEDS: Vibegron 75 MG TABLET PO (11:02)
[2023-11-14] MEDS: traMADol 50 MG Tablet PO ×2 (11:02→21:10)
[2023-11-14] MEDS: Piperacil/Tazobactam 3.375 GM in 0.9% Normal Saline (50mL MB+) 50 ML IV ×3 (11:02→21:04)
[2023-11-14] MEDS: Insulin Lispro 100 UNIT/ML INSULN.PEN SC ×3 (14:45→21:02)
[2023-11-14] MEDS: Ipratropium/Albuterol Sulfate 3 ML AMPUL.NEB INHALATION ×2 (15:14→20:28)
[2023-11-14 15:15] LABS: Troponin-I HS 104 pg/mL (3.0-54.0)
--- NOTE | 2023-11-14 15:36 | PCM.PN.HOSP ---
Reason for Visit Reason for Visit: Diagnoses Acute pancreatitis without necrosis or infection, unspecified (11/14/23) Objective Data Objective Data Vital Signs: Vital Signs Temp Pulse Resp BP Pulse Ox O2 Del Method O2 Flow Rate 98.1 F 86 18 128/52 H 93 Nasal Cannula 5 11/14/23 14:00 11/14/23 14:00 11/14/23 14:00 11/14/23 14:00 11/14/23 14:00 11/14/23 14:00 11/14/23 14:00 Oxygen Flow Rate (L/min) 5 Oxygen Delivery Method Nasal Cannula Weight: 98.2 kg Body Mass Index (BMI) 43.7 Intake & Output: Intake and Output for Last 24 Hours 11/12/23 11/13/23 11/14/23 23:59 23:59 23:59 Intake Total 2174.58 / 2174.58 Output Total 200 / 200 Balance 1974.58 / 1973.58 Lab / Micro Data 11/14/23 03:15 11/14/23 03:15 Labs: Laboratory Results - last 24 hr 11/14/23 03:15: WBC 12.2 H, RBC 3.85 L, Hgb 11.2 L, Hct 36.5 L, MCV 94.8, MCH 29.1, MCHC 30.7 L, RDW Std Deviation 50.9 H, RDW Coeff of Jazzmine 14.7 H, Plt Count 242, MPV 9.9, Immature Gran % (Auto) 0.700, Neut % (Auto) 85.5 H, Lymph % (Auto) 3.9 L, [place] % (Auto) 8.4, Eos % (Auto) 1.2, Baso % (Auto) 0.3, Absolute Neuts (auto) 10.4 H, Absolute Lymphs (auto) 0.48 L, Nucleated RBC % 0, Differential Comment SCANNED, Stomatocytes 1+, PT 13.6, INR 1.0, APTT 27.5, Sodium 144, Potassium 3.8, Chloride 107, Carbon Dioxide 31.0, Anion Gap 6, BUN 33 H, Creatinine 1.96 H, Estim Creat Clear Calc 18.64, Est GFR (MDRD) Af Amer 32 L, Est GFR (MDRD) Non-Af 27 L, BUN/Creatinine Ratio 16.8, Glucose 170 H, Lactic Acid 2.0, Calcium 9.9, Magnesium 1.5 L, Total Bilirubin 0.40, AST 30, ALT 25, Alkaline Phosphatase 48, Troponin I High Sens 56 H, Total Protein 6.8, Albumin 3.5, Globulin 3.3, Albumin/Globulin Ratio 1.1, Lipase 170 H, Urine Color Yellow, Urine Clarity Clear, Urine pH 7.0, Ur Specific [place] 1.010, Urine Protein 100 H, Urine Glucose (UA) Normal, Urine Ketones Negative, Urine Occult Blood 50 H, Urine Nitrite Negative, Urine Bilirubin Negative, Urine Urobilinogen Normal, Ur Leukocyte Esterase Negative, Urine RBC 0-5 SEEN, Urine WBC 0-5 SEEN, Ur Squamous Epith Cells 0 SEEN, Urine Bacteria 0 SEEN, Urine Mucus 0 SEEN 11/14/23 03:40: B-Natriuretic Peptide 107.3 H 11/14/23 08:05: Lactic Acid 1.4, Troponin I High Sens 88 H 11/14/23 10:00: Troponin I High Sens 93 H 11/14/23 14:49: Troponin I High Sens 104 H Micro: Microbiology 11/14/23 08:32 Mucosa - Nose Respiratory Panel (PCR) - Final 11/14/23 03:27 Nasal Secretion SARS-CoV-2 & FLU Antigen (Rapid) - Final ABG Data ABG results: ABG 11/14/23 03:53 Specimen Type KURT Sample Site Not entered O2 % 3.0 VBG pH 7.40 VBG pO2 35 VBG HCO3 30 H VBG Total CO2 31 VBG O2 Sat (Calc) 66 VBG Base Excess 5 H POC Mix VBG pCO2 Pt Tmp 48.6 O2 Delivery Device Cannula Radiography Diagnostic Testing: Radiology Impression Abdomen/Pelvis CT 11/14/23 03:19 IMPRESSION: undefined Chest X-Ray 11/14/23 04:20 IMPRESSION: Opacity at the right lung base concerning for infection or aspiration. Electronically Signed: Macario Prado MD at 6:03 EST ,
[2023-11-14 18:14] LABS: Bedside Glucose 290 mg/dL (74-106)
--- NOTE | 2023-11-14 18:15 | CASEMGMT ---
SARA BARON Discharge Planning Assessment: Face to Face with patient for initial transition planning/care coordination assessment. SARA BARON introduced self and role at [facility], pt alert, sitting up in bed for dinner. Pt voices understanding of SARA BARON role and is agreeable to participating in assessment. Care providers, pharmacy, and demographics verified. Admitting dx: COPD exac, possible aspiration pneumonia PCP: [facility] Specialists: Quintin (nephrology), Danny (Pulm), Carlota (hard metals engraver hand), Elda (cardio), Jong (urology), Luanne (GI), (endo), Danny (ENT), Carol (pain) Preferred Pharmacy: [facility] [place] Insurance: [employer] MCR HMO (changing to [place] MCR 11/30/23) and Prescription Benefit: yes LNOK: spouse Willian Living Arrangements: Pt lives with her in single story home with 3 steps to enter. Pt states she is able to perform her ADLs independently and spouse performs IADLs. Pt's daughter assists with some housekeeping chores. Transportation: pt drives on occasion but her spouse is the primary gravel truck driver DME: shower chair, grab bars, hand held shower, rollator x2, hospital bed, nebulizer, pulse oximeter, continuous glucose meter w/supplies, home O2 at 4.5l/min from [facility] with portabilty. States her spouse can bring in a portable tank at discharge. Pt states she returned her CPAP as she was unable to tolerate it. SNF: [facility] previously HHC: [facility] previously. Pt's goal/plan: Pt states she plans to return home at discharge with the support of her spouse. Pt states she would be interested in home health for SN and therapy to help her get stronger. Noted current evals for PT/OT pending. ST eval reviewed and pt would benefit from continued ST for 2-4 weeks. Pt declines a list of in-network home health providers and states she would prefer [facility] as she has had them previously. Will send referral to [facility] for their review for acceptance. Noted pt on O2 above her baseline. green sheet placed on chart for possible increased in O2 from home O2 flow at discharge. Plan: Home Health at discharge pending referral and acceptance. Kelsey Scales RN CM
[2023-11-14] MEDS: Insulin Glargine-YFGN 100 UNIT/ML Pen 38 UNIT SC (21:02)
[2023-11-14 21:26] LABS: Bedside Glucose 309 mg/dL (74-106)
[2023-11-15] VITALS (12 sets, daily range): BP systolic 132–154; BP diastolic 61–77; PULSE 80–98; RESP 16–22; TEMP 36.4–36.7; O2SAT 94–97; BMI 44.4
[2023-11-15 04:56] LABS: Absolute Lymphocyte Count 0.28 X10^3/uL (0.83-4.51); Basophil# 0.01 X10^3/uL; Basophil% 0.1 % (0-1); Hematocrit 31.8 % (37-47); Hemoglobin 9.9 g/dL (12.0-15.0); Lymphocyte # 0.28 X10^3/ul (0.83-4.51); Lymphocyte % 2.2 % (19-41); Mean Corp Hgb Conc 31.1 g/dL (32-36); Mean Corpuscular Hgb 29.8 pg (27.0-32.0); Mean Corpuscular Volume 95.8 fL (81-99); Mean Platelet Vol. 9.9 fl (6.2-12.0); Monocyte% 1.6 % (0-10); NRBC Flagged by Analyzer 0 % (0-5); Neutrophil % 95.5 % (47-70); POSITIVE DIFFERENTIAL YES; Platelet Count 179 K/mm3 (150-450); RBC Distribution Width CV 14.4 % (11.6-14.6); RBC Distribution Width SD 50.5 fl (35.1-43.9); Red Blood Count 3.32 M/mm3 (4.2-5.4); White Blood Count 12.6 K/mm3 (4.4-11.0)
[2023-11-15] MEDS: Piperacil/Tazobactam 3.375 GM in 0.9% Normal Saline (50mL MB+) 50 ML IV ×3 (05:24→21:48)
[2023-11-15] MEDS: 0.9% Saline Lock 10 ML Syringe IV (05:25)
[2023-11-15 05:30] LABS: ALB/GLOB Ratio 0.9 RATIO (0.9-2.4); AST(SGOT) 24 U/L (15-37); Alanine Aminotransfer ALT/SGPT 24 U/L (13-56); Albumin, Serum 2.9 g/dL (3.2-5.0); Alkaline Phosphatase 41 U/L (45-117); Anion Gap 5 (5-15); BUN 29 mg/dL (7-18); BUN/Creat Ratio 17.2 RATIO (10-20); Chloride 111 mmol/L (98-107); Cholesterol 114 mg/dL (200); Creatinine, Serum 1.69 mg/dL (0.55-1.02); EST Glomerular Filtration Rate 32 mL/min (>60); Est Glom Filt Rate - Afr Amer 38 mL/min (>60); Estimated Creatinine Clearance 46.65 ml/min; Globulin 3.2 g/dL (2.2-4.2); Glucose 249 mg/dL (74-106); High Density Lipoprotein 35 mg/dL; Lipase 18 U/L (13-75); Potassium 4.4 mmol/L (3.5-5.1); Protein, Total 6.1 g/dL (6.4-8.2); Sodium Level 144 mmol/L (136-145); Triglycerides 173 mg/dL; Very Low Density Lipoprotein 35 mg/dL (5-40)
[2023-11-15 05:32] LABS: Differential Indicated SCAN CRITERIA MET
[2023-11-15] MEDS: Ipratropium/Albuterol Sulfate 3 ML AMPUL.NEB INHALATION ×5 (05:45→20:08)
[2023-11-15] MEDS: Insulin Lispro 100 UNIT/ML INSULN.PEN SC ×4 (06:04→21:49)
[2023-11-15 06:31] LABS: Bedside Glucose 212 mg/dL (74-106)
[2023-11-15 07:05] LABS: Differential Comment SCANNED
[2023-11-15] MEDS: traMADol 50 MG Tablet PO ×2 (09:33→21:50)
[2023-11-15] MEDS: Lidocaine 5% Patch 2 PATCH TOPICAL (09:33)
[2023-11-15] MEDS: Furosemide 20 MG Tablet PO (09:34)
[2023-11-15] MEDS: dilTIAZem CD 180 MG Capsule PO (09:34)
[2023-11-15] MEDS: Pantoprazole Sodium 40 MG Tablet PO (09:34)
[2023-11-15] MEDS: Febuxostat 40 MG TABLET PO (09:34)
[2023-11-15] MEDS: Loratadine 10 MG Tablet PO (09:35)
[2023-11-15] MEDS: Aspirin E.C. 81 MG Tablet PO (09:35)
[2023-11-15] MEDS: Montelukast 10 MG Tablet PO (09:35)
[2023-11-15] MEDS: Vibegron 75 MG TABLET PO (09:36)
[2023-11-15] MEDS: Menthol/Lanolin/Calamine/Znox 113 GM Tube 1 APPLIC TOPICAL ×4 (09:37→21:59)
[2023-11-15 12:03] LABS: Bedside Glucose 352 mg/dL (74-106)
--- NOTE | 2023-11-15 13:18 | PCM.PN.HOSP ---
Reason for Visit Reason for Visit: Diagnoses Acute pancreatitis without necrosis or infection, unspecified (11/14/23) Subjective Subjective Patient seen at bedside this morning, present. Patient appears improved today in comparison to yesterday. Sitting comfortably in bedside chair, satting well on 3 L nasal cannula, no increased work of breathing noted. States she was able to move from the bed to her bedside chair without issue. Denies any fevers or chills. Denies any pain or discomfort this morning. She is hoping to go home soon. No other acute concerns. Objective Data Objective Data Vital Signs: Vital Signs Temp Pulse Resp BP Pulse Ox O2 Del Method O2 Flow Rate 98.0 F 90 20 H 132/61 H 96 Nasal Cannula 4 11/15/23 11:00 11/15/23 11:44 11/15/23 11:44 11/15/23 11:00 11/15/23 11:00 11/15/23 11:00 11/15/23 12:23 Oxygen Flow Rate (L/min) 4 Oxygen Delivery Method Nasal Cannula Weight: 99.9 kg Body Mass Index (BMI) 44.4 Intake & Output: Intake and Output for Last 24 Hours 11/13/23 11/14/23 11/15/23 23:59 23:59 23:59 Intake Total 3195.41 / 3675.41 2060 / 2060 Output Total 900 / 1725 1875 / 1875 Balance 2295.41 / 1950.41 185 / 185 Lab / Micro Data 11/15/23 03:55 11/15/23 03:55 Labs: Laboratory Results - last 24 hr 11/14/23 14:49: Troponin I High Sens 104 H 11/14/23 17:53: POC Glucose 290 H 11/14/23 20:59: POC Glucose 309 H 11/15/23 03:55: WBC 12.6 H, RBC 3.32 L, Hgb 9.9 L, Hct 31.8 L, MCV 95.8, MCH 29.8, MCHC 31.1 L, RDW Std Deviation 50.5 H, RDW Coeff of Jazzmine 14.4, Plt Count 179, MPV 9.9, Immature Gran % (Auto) 0.600, Neut % (Auto) 95.5 H, Lymph % (Auto) 2.2 L, [place] % (Auto) 1.6, Eos % (Auto) 0.0, Baso % (Auto) 0.1, Absolute Neuts (auto) 12.0 H, Absolute Lymphs (auto) 0.28 L, Nucleated RBC % 0, Differential Comment SCANNED, Sodium 144, Potassium 4.4, Chloride 111 H, Carbon Dioxide 28.0, Anion Gap 5, BUN 29 H, Creatinine 1.69 H, Estim Creat Clear Calc 46.65, Est GFR (MDRD) Af Amer 38 L, Est GFR (MDRD) Non-Af 32 L, BUN/Creatinine Ratio 17.2, Glucose 249 H, Calcium 9.0, Total Bilirubin 0.40, AST 24, ALT 24, Alkaline Phosphatase 41 L, Total Protein 6.1 L, Albumin 2.9 L, Globulin 3.2, Albumin/Globulin Ratio 0.9, Triglycerides 173, Cholesterol 114, LDL Cholesterol 44, VLDL Cholesterol 35, HDL Cholesterol 35 L, Lipase 18 11/15/23 06:02: POC Glucose 212 H 11/15/23 11:41: POC Glucose 352 H Micro: Microbiology 11/14/23 03:15 Urine, Catheterized Urine Culture - Preliminary Culture exhibits no growth. 11/14/23 08:32 Mucosa - Nose Respiratory Panel (PCR) - Final 11/14/23 03:27 Nasal Secretion SARS-CoV-2 & FLU Antigen (Rapid) - Final Radiography Diagnostic Testing: Radiology Impression Renal Ultrasound 11/14/23 08:10 IMPRESSION: 1. No hydronephrosis to suggest obstruction. 2. Possible 6 mm nonobstructing right renal stone. 3. Moderate left renal atrophy likely from chronic renal artery stenosis. 4. 2.5 cm hypoechoic solid or cystic mass in the upper pole left kidney and correlation with renal mass protocol CT or MRI may be useful. Electronically Signed: Ag Stanton MD at 16:21 EST , Physical Exam Const alert, oriented x3 and no apparent distress Constitutional Narrative: Pleasant elderly female, morbidly obese, sitting comfortably in bedside chair, conversing normally, no acute distress. General Appearance: cooperative and comfortable HEENT normocephalic, head/scalp atraumatic, hearing grossly normal bilaterally, nasal mucous membranes and turbinates normal and moist oral mucous membranes Eyes PERRL, EOMs intact bilaterally and conjunctivae normal Neck full ROM, no lymphadenopathy and supple Lymph Lymphatic: no lymphadenopathy noted Chest inspection of chest normal Resp Resp Narrative: Mildly decreased breath sounds throughout bilaterally. No wheezing or crackles noted. Satting in mid 90s on 3 L nasal cannula, no increased work of breathing noted. Cardio regular rate, regular rhythm, no murmurs and peripheral pulses 2+ throughout GI normal to inspection, nondistended, normoactive bowel sounds, soft to palpation, non-tender and non-distended Back/Spine normal ROM Extremity normal to inspection and no pedal edema Skin no rashes or lesions noted Neuro moves all extremities and no focal motor deficits Speech: speech normal Psych mental status grossly normal Assessment & Plan Assessment/Plan (1) Aspiration pneumonia: PLAN: Plan Patient is a 72-year-old female who presented to [facility] ED on 11/14/2023 with multiple concerns including shortness of breath, nausea/vomiting, abdominal pain and fevers. 1. Suspected aspiration pneumonia, acute exacerbation of COPD, history of chronic respiratory failure on 3-4 L at home Chest x-ray on admit showed opacity at right lung base concerning for infection versus aspiration. Required up to 6 L nasal cannula on admission. Wheezing noted on admission. Infectious workup negative to this point. ? Patient appears about back to baseline. Will de-escalate from IV Solu-Medrol to prednisone 40 mg daily tomorrow. Continue IV Zosyn for today, can likely transition to p.o. Augmentin on discharge. Continue long-acting inhaler. De-escalated to nebulizer treatments as needed. If remains stable overnight, likely okay for discharge home tomorrow. 2. Abdominal pain, concern for acute pancreatitis Presented with abdominal pain, lipase 170, high concern for acute pancreatitis. CT abdomen pelvis showed normal pancreas and normal right upper quadrant. Suspect patient's abdominal pain may have been referred pain from her pneumonia. ? Patient tolerating regular diet without issue. Continue treatment for pneumonia as noted above. 3. Incidental 2.5 cm lesion in left kidney CT abdomen pelvis showed a 2 cm lesion at the superior pole of the left kidney, possibly solid. Follow-up renal ultrasound showed 2.5 cm hypoechoic solid or cystic mass in the upper pole of left kidney. ? Recommendation from ultrasound was correlation with renal mass protocol CT or MRI. Can follow up with this outpatient. Chronic medical conditions: ? CKD stage III: Creatinine at baseline, stable. ? Bilateral lower extremity edema, underlying venous insufficiency, PVD: Stable. ? Paroxysmal atrial fibrillation: Continue home diltiazem, not on anticoagulation. ? Hypertension: Continue home torsemide and diltiazem. ? Hyperlipidemia: Continue home fenofibrate. ? Type 2 diabetes mellitus: Continue sliding scale insulin while inpatient. ? Chronic normocytic anemia: At baseline, stable. ? Morbid obesity: BMI 44 on admit. Encouraged lifestyle modifications. Complicates hospital course, care and prognosis. ? GERD: Continue home PPI. ? Allergic rhinitis: Continue home medications. DVT prophylaxis: Heparin subcu CODE STATUS: Full code, verified Expected disposition: Home, 1 to 2 days Total clinical time spent by myself addressing the patient's medical issues, reviewing all the data, and collaborating with patient's care team: 35 minutes. Charges/Coding Visit Charges Inpatient E&M: 23607 Subs Hosp L2
--- NOTE | 2023-11-15 16:01 | EKG12_ITS ---
Test Reason : CP Blood Pressure : / mmHG Vent. Rate : 090 BPM Atrial Rate : 090 BPM P-R Int : 164 ms QRS Dur : 164 ms QT Int : 428 ms P-R-T Axes : 079 118 063 degrees QTc Int : 523 ms Normal sinus rhythm Right bundle branch block Abnormal ECG When compared with ECG of 14-NOV-2023 03:12, MANUAL COMPARISON REQUIRED, DATA IS UNCONFIRMED Confirmed by IRA FELIX, KEREN ([id number]), photography editor KATHI COLBERT ([id number]) on 11/17/2023 10:59:40 AM Referred By: SAMRA Confirmed By:KEREN ROTH MD
[2023-11-15 16:44] LABS: Bedside Glucose 309 mg/dL (74-106)
--- NOTE | 2023-11-15 19:48 | NURSING ---
This patient has been non-compliant and very difficult to work with. Unable to focus and work with task to achieve.
[2023-11-15] MEDS: Insulin Glargine-YFGN 100 UNIT/ML Pen 38 UNIT SC (21:49)
[2023-11-15] MEDS: Polyethylene Glycol 3350 17 GM PACKET PO (21:50)
[2023-11-15] MEDS: Acetaminophen 325 MG Tablet 650 MG PO (21:50)
[2023-11-15 23:21] LABS: Bedside Glucose 255 mg/dL (74-106)
[2023-11-16] VITALS (9 sets, daily range): BP systolic 145–182; BP diastolic 59–74; PULSE 75–86; RESP 16–22; TEMP 36.6–36.8; O2SAT 90–96; BMI 45.0
[2023-11-16] MEDS: Piperacil/Tazobactam 3.375 GM in 0.9% Normal Saline (50mL MB+) 50 ML IV ×3 (05:51→22:24)
[2023-11-16 06:34] LABS: Bedside Glucose 147 mg/dL (74-106)
[2023-11-16] MEDS: Ipratropium/Albuterol Sulfate 3 ML AMPUL.NEB INHALATION ×3 (07:28→19:38)
[2023-11-16] MEDS: Aspirin E.C. 81 MG Tablet PO (08:58)
[2023-11-16] MEDS: Vibegron 75 MG TABLET PO (08:59)
[2023-11-16] MEDS: Furosemide 20 MG Tablet PO (08:59)
[2023-11-16] MEDS: dilTIAZem CD 180 MG Capsule PO (08:59)
[2023-11-16] MEDS: Loratadine 10 MG Tablet PO (08:59)
[2023-11-16] MEDS: Pantoprazole Sodium 40 MG Tablet PO (09:00)
[2023-11-16] MEDS: Febuxostat 40 MG TABLET PO (09:00)
[2023-11-16] MEDS: Montelukast 10 MG Tablet PO (09:00)
[2023-11-16] MEDS: predniSONE 20 MG Tablet 40 MG PO (09:05)
[2023-11-16] MEDS: traMADol 50 MG Tablet PO ×2 (09:05→22:18)
--- NOTE | 2023-11-16 09:20 | PN.HOSP_ITS ---
Subjective Subjective Short of breath with exertion just to the door. Pulse ox dropped down to 82%. She states that she normally gets this at home but she dropped down to 88%. Objective Data Objective Data Vital Signs: Vital Signs Temp Pulse Resp BP Pulse Ox O2 Del Method O2 Flow Rate 36.7 C 75 18 145/70 H 94 Nasal Cannula 4 11/16/23 05:00 11/16/23 07:29 11/16/23 07:29 11/16/23 05:00 11/16/23 07:29 11/16/23 07:29 11/16/23 07:29 Oxygen Flow Rate (L/min) 4 Oxygen Delivery Method Nasal Cannula Weight: 101.1 kg Body Mass Index (BMI) 45.0 Intake & Output: Intake and Output for Last 24 Hours 11/14/23 11/15/23 11/16/23 23:59 23:59 23:59 Intake Total 3195.41 / 3675.41 2590 / 2590 530 / 530 Output Total 900 / 1725 3125 / 3125 700 / 700 Balance 2295.41 / 1950.41 -535 / -535 -170 / -170 Lab / Micro Data 11/15/23 03:55 11/15/23 03:55 Labs: Laboratory Results - last 24 hr 11/15/23 11:41: POC Glucose 352 H 11/15/23 16:18: POC Glucose 309 H 11/15/23 21:42: POC Glucose 255 H 11/16/23 05:50: POC Glucose 147 H Micro: Microbiology 11/14/23 03:15 Urine, Catheterized Urine Culture - Final Culture exhibits no growth. 11/14/23 08:32 Mucosa - Nose Respiratory Panel (PCR) - Final 11/14/23 03:27 Nasal Secretion SARS-CoV-2 & FLU Antigen (Rapid) - Final Physical Exam Const alert Constitutional Narrative: Patient was very tachypneic after work with therapy just walking back and forth to the door to the chair. Pulse ox dropped down to 82%. Patient was very tachypneic and had conversational dyspnea. Her oxygen was increased from 4 to 6 L and her tachypnea and conversational dyspnea improved. Neck no lymphadenopathy Resp normal respiratory effort and no retractions Resp Narrative: Bibasilar crackles Cardio regular rate, regular rhythm, S1 normal heart sound and S2 normal heart sound GI normal to inspection, nondistended, normoactive bowel sounds, soft to palpation, non-tender and non-distended Extremity General Extremity: edema bilateral lower extremity Details: moderate Neuro Sensorium / Orientation: awake and alert Psych affect normal Assessment & Plan Assessment/Plan (1) Aspiration pneumonia: PLAN: Plan 1. Suspected aspiration pneumonia, acute exacerbation of COPD, history of chronic respiratory failure on 3-4 L at home * Chest x-ray on admit showed opacity at right lung base concerning for infection versus aspiration. Required up to 6 L nasal cannula on admission. Wheezing noted on admission. Infectious workup negative to this point. * Patient still very tachypneic with ambulation. At baseline, patient still does have issues with hypoxia but this seems worse than her baseline. I am concerned that she may also have some volume overload given the edema that she has in her lower extremities. Will initiate IV furosemide with close monitoring of her kidney function. * Pulmonary toilet 2. Abdominal pain, * lipase trivially elevated at 170, but then resolved. CT ab/pelvis on the was unremarkable for pancreatitis. Therefore, pancreatitis not felt to be present. No further work up at this time. * However, troponins elevated. Unclear if pt was having atypical presentation of a cardiac event, of if troponins elevated due to type 2 event from pneumonia. Check echo and stress test. Continue aspirin. * Stress test was negative for any acute ischemia. 3. Incidental 2.5 cm lesion in left kidney * CT abdomen pelvis showed a 2 cm lesion at the superior pole of the left kidney, possibly solid. Follow-up renal ultrasound showed 2.5 cm hypoechoic solid or cystic mass in the upper pole of left kidney. ? Recommendation from ultrasound was correlation with renal mass protocol CT or MRI. Can follow up with this outpatient. Chronic medical conditions: ? CKD stage III: Creatinine at baseline, stable. ? Bilateral lower extremity edema, underlying venous insufficiency, PVD: Stable. ? Paroxysmal atrial fibrillation: Continue home diltiazem, not on anti coagulation. ? Hypertension: Continue home torsemide and diltiazem. ? Hyperlipidemia: Continue home fenofibrate. ? Type 2 diabetes mellitus: Continue sliding scale insulin while inpatient. ? Chronic normocytic anemia: At baseline, stable. ? Morbid obesity: BMI 44 on admit. Encouraged lifestyle modifications. Complicates hospital course, care and prognosis. ? GERD: Continue home PPI. ? Allergic rhinitis: Continue home medications. dysphagia:ST recommending regular textures and thin liquids. Easy to chew w aspiration precautions. Upright. DVT prophylaxis: Heparin subcu CODE STATUS: Full code, verified Expected disposition:TBD Charges/Coding Visit Charges Inpatient E&M: 92464 Subs Hosp L2
[2023-11-16] MEDS: Menthol/Lanolin/Calamine/Znox 113 GM Tube 1 APPLIC TOPICAL ×4 (10:35→22:28)
[2023-11-16] MEDS: Insulin Lispro 100 UNIT/ML INSULN.PEN SC ×3 (12:31→22:17)
[2023-11-16] MEDS: 0.9% Saline Lock 10 ML Syringe IV ×2 (14:12→18:26)
--- NOTE | 2023-11-16 14:38 | CHAPLAIN ---
Type of Pastoral Visit _x__ Initial Visit ___ Follow-up Visit ___ On-call Visit ___ General Patient Visit ___ Spiritual Assessment ___ Family Conference ___ Bereavement ___ Rapid Response ___ Code Blue ___ Other (describe below) Pastoral Care Referral From _x__ Patient ___ Family ___ Nurse ___ Physician ___ Logging Supervisor ___ Solutions Manager ___ Other (describe below) Sacrament/Intervention _x__ Active listening ___ Anointing ___ Restorationism ___ Bereavement ___ Communion ___ Calista exploration ___ ___ Life review _x__ Prayer ___ Reconciliation ___ Sacrament of Sick _x__ Supportive presence ___ Wedding ___ Other (describe below) Pastoral Comments patient is welcoming and expresses her health issues; spouse is also in the room; pt is offered support and is asked some open ended questions to facilitate communication; pt has several health concerns and is undergoing testing; talked about how she is handling the situation and what are the things that bring her extra peace; pt is not affiliated with a calista community but acknowledges need for prayer support in this time; spouse is also in the room and is receptive to spiritual care and speaks thankfulness;
--- NOTE | 2023-11-16 14:40 | STRESSREP ---
Stress Test Report Pharmacologic/Lexiscan myocardial perfusion stress test. Indication; 72-year-old patient With multiple medical comorbidities End-stage renal disease, hypertension, hyperlipidemia, type 2 diabetes Chronic normocytic anemia as an admission with aspiration pneumonia as well as pancreatitis Lexiscan sestamibi was performed. Stress protocol: Resting EKG demonstrates. Normal sinus rhythm. Right bundle branch block 0.4 mg of regadenoson was infused per usual protocol followed by rapid intravenous saline flush injection continuous EKG monitoring was performed. The maximum heart rate attained was 98 bpm which was 66% of maximum predicted heart . Stress EKG showed[, no significant change from the resting EKG, with maximum heart rate of 98 bpm. Arrhythmia: No arrhythmia demonstrated Symptoms: Patient had no symptoms of chest pain Blood pressure at rest: 144/70 mmHg blood pressure at the end of stress: 144/70 mmHg Myocardial perfusion protocol. 14.6 mCi ]of Technetium 99m Sestamibi was injected at rest. [ 0.4 mg ]of Regadenoson was infused per usual protocol peak infusion 44.7 mCi ]of Technetium 99m sestamibi was injected. Stress images were obtained stress and rest images were reconstructed and compared in the short axis vertical and horizontal long axis. Gated images were also obtained Perfusion SPECT analysis: Review of the images demonstrate normal uptake of sestamibi at rest, post stress images demonstrate similar uptake of sestamibi to the resting images, homogeneous tracer uptake With no evidence of reversible myocardial ischemia. Gated SPECT analysis: The gated ejection fraction is 51% ' Anteroseptal hypokinesia Conclusion: Negative Lexiscan sestamibi myocardial perfusion study for reversible myocardial ischemia Mildly reduced LV systolic function with EF calculated 51% And segmental wall motion abnormality as described with anteroseptal hypokinesia. Patient has no symptoms to report, in particular no chest pain Sebastian Ge MD,FACC,[facility]
[2023-11-16 17:09] LABS: Bedside Glucose 333 mg/dL (74-106)
[2023-11-16 18:05] LABS: Bedside Glucose 158 mg/dL (74-106)
[2023-11-16] MEDS: Furosemide 40 MG/4 ML Vial IV (18:25)
[2023-11-16] MEDS: Acetaminophen 325 MG Tablet 650 MG PO (22:19)
[2023-11-16] MEDS: Insulin Glargine-YFGN 100 UNIT/ML Pen 38 UNIT SC (22:20)
[2023-11-16] MEDS: Polyethylene Glycol 3350 17 GM PACKET PO (22:28)
[2023-11-16 23:06] LABS: Bedside Glucose 242 mg/dL (74-106)
[2023-11-17 01:41] VITALS: BMI 43.8
[2023-11-17] MEDS: Piperacil/Tazobactam 3.375 GM in 0.9% Normal Saline (50mL MB+) 50 ML IV (05:20)
[2023-11-17 05:25] VITALS: BP 159/55; PULSE 65; RESP 18; TEMP 36.7; O2SAT 94
[2023-11-17 06:51] LABS: Absolute Neutrophil Count 8.2 X10^3/uL (2.0-7.7); Basophil# 0.04 X10^3/uL; Basophil% 0.4 % (0-1); Eosinophil# 0.07 X10^3/uL; Eosinophils% 0.7 % (0-5); Hematocrit 33.5 % (37-47); Hemoglobin 10.5 g/dL (12.0-15.0); Lymphocyte % 7.7 % (19-41); Mean Corp Hgb Conc 31.3 g/dL (32-36); Mean Corpuscular Hgb 29.7 pg (27.0-32.0); Mean Corpuscular Volume 94.6 fL (81-99); Monocyte# 1.05 X10^3/uL; Monocyte% 10.1 % (0-10); NRBC Flagged by Analyzer 0 % (0-5); Neutrophil # 8.22 X10^3/uL (2.7-7.7); Neutrophil % 79.5 % (47-70); Platelet Count 242 K/mm3 (150-450); RBC Distribution Width CV 14.5 % (11.6-14.6); RBC Distribution Width SD 50.3 fl (35.1-43.9); Red Blood Count 3.54 M/mm3 (4.2-5.4); White Blood Count 10.4 K/mm3 (4.4-11.0)
[2023-11-17 07:07] VITALS: PULSE 80; RESP 22; O2SAT 92
[2023-11-17] MEDS: Ipratropium/Albuterol Sulfate 3 ML AMPUL.NEB INHALATION ×2 (07:07→11:25)
[2023-11-17 07:08] LABS: Bedside Glucose 120 mg/dL (74-106)
[2023-11-17 07:14] LABS: Anion Gap 5 (5-15); BUN 44 mg/dL (7-18); BUN/Creat Ratio 27.2 RATIO (10-20); Chloride 103 mmol/L (98-107); Creatinine, Serum 1.62 mg/dL (0.55-1.02); EST Glomerular Filtration Rate 33 mL/min (>60); Est Glom Filt Rate - Afr Amer 40 mL/min (>60); Estimated Creatinine Clearance 48.81 ml/min; Glucose 129 mg/dL (74-106); Potassium 3.8 mmol/L (3.5-5.1); Sodium Level 140 mmol/L (136-145)
--- NOTE | 2023-11-17 08:32 | PN.HOSP_ITS ---
Subjective Subjective Feels well. Objective Data Objective Data Vital Signs: Vital Signs Temp Pulse Resp BP Pulse Ox O2 Del Method O2 Flow Rate 36.7 C 80 22 H 159/55 H 92 Nasal Cannula 3 11/17/23 05:25 11/17/23 07:07 11/17/23 07:07 11/17/23 05:25 11/17/23 07:07 11/17/23 07:46 11/17/23 07:46 Oxygen Flow Rate (L/min) 3 Oxygen Delivery Method Nasal Cannula Weight: 98.5 kg Body Mass Index (BMI) 43.8 Intake & Output: Intake and Output for Last 24 Hours 11/15/23 11/16/23 11/17/23 23:59 23:59 23:59 Intake Total 2590 / 2590 990 / 990 50 / 50 Output Total 3125 / 3125 3100 / 3100 1900 / 1900 Balance -535 / -535 -2110 / -2110 -1850 / -1850 Lab / Micro Data 11/17/23 06:10 11/17/23 06:10 Labs: Laboratory Results - last 24 hr 11/16/23 12:29: POC Glucose 158 H 11/16/23 16:16: POC Glucose 333 H 11/16/23 22:16: POC Glucose 242 H 11/17/23 06:10: WBC 10.4, RBC 3.54 L, Hgb 10.5 L, Hct 33.5 L, MCV 94.6, MCH 29.7, MCHC 31.3 L, RDW Std Deviation 50.3 H, RDW Coeff of Jazzmine 14.5, Plt Count 242, MPV 10.0, Immature Gran % (Auto) 1.600 H, Neut % (Auto) 79.5 H, Lymph % (Auto) 7.7 L, [place] % (Auto) 10.1 H, Eos % (Auto) 0.7, Baso % (Auto) 0.4, Absolute Neuts (auto) 8.2 H, Absolute Lymphs (auto) 0.80 L, Nucleated RBC % 0, Sodium 140, Potassium 3.8, Chloride 103, Carbon Dioxide 32.0, Anion Gap 5, BUN 44 H, Creatinine 1.62 H, Estim Creat Clear Calc 48.81, Est GFR (MDRD) Af Amer 40 L, Est GFR (MDRD) Non-Af 33 L, BUN/Creatinine Ratio 27.2 H, Glucose 129 H, Calcium 10.0 11/17/23 06:26: POC Glucose 120 H Micro: Microbiology 11/14/23 03:40 Blood Culture (Wb) - Arm Right Blood Culture - Preliminary No growth in 48 hours. 11/14/23 03:15 Blood Culture (Wb) - Arm Right Blood Culture - Preliminary No growth in 48 hours. 11/14/23 03:15 Urine, Catheterized Urine Culture - Final Culture exhibits no growth. 11/14/23 08:32 Mucosa - Nose Respiratory Panel (PCR) - Final 11/14/23 03:27 Nasal Secretion SARS-CoV-2 & FLU Antigen (Rapid) - Final Radiography Diagnostic Testing: Radiology Impression Echocardiogram 11/14/23 08:10 Interpretation Summary The estimated ejection fraction is 55 %. Stage 1 diastolic dysfunction. Mild concentric left ventricular hypertrophy. Trivial pericardial effusion., No hemodynamic compromise No significant change from prior echocardiogram The study was technically difficult. Contrast injection was performed. Ordering Physician: Jessica Christianson Referring Physician: Veronica Oquendo M.D. Performed By: Dre Merritt RCS Physical Exam Const alert Resp normal respiratory effort, no retractions, no use of accessory muscles and clear to auscultation bilaterally Cardio regular rate, regular rhythm, S1 normal heart sound and S2 normal heart sound GI normal to inspection, nondistended, normoactive bowel sounds, soft to palpation, non-tender and non-distended Extremity normal to inspection Neuro Sensorium / Orientation: awake and alert Assessment & Plan Assessment/Plan (1) Aspiration pneumonia: PLAN: Plan 1. Suspected aspiration pneumonia, acute exacerbation of COPD, history of chronic respiratory failure on 3-4 L at home * Chest x-ray on admit showed opacity at right lung base concerning for infection versus aspiration. Required up to 6 L nasal cannula on admission. Wheezing noted on admission. Infectious workup negative to this point. * Patient still very tachypneic with ambulation. At baseline, patient still does have issues with hypoxia but this seems worse than her baseline. I am concerned that she may also have some volume overload given the edema that she has in her lower extremities. Will initiate IV furosemide with close monitoring of her kidney function. * Pulmonary toilet 2. Abdominal pain, * lipase trivially elevated at 170, but then resolved. CT ab/pelvis on the was unremarkable for pancreatitis. Therefore, pancreatitis not felt to be present. No further work up at this time. * However, troponins elevated. Unclear if pt was having atypical presentation of a cardiac event, of if troponins elevated due to type 2 event from pneumonia. Check echo and stress test. Continue aspirin. * Stress test was negative for any acute ischemia. 3. Incidental 2.5 cm lesion in left kidney * CT abdomen pelvis showed a 2 cm lesion at the superior pole of the left kidney, possibly solid. Follow-up renal ultrasound showed 2.5 cm hypoechoic solid or cystic mass in the upper pole of left kidney. * Recommendation from ultrasound was correlation with renal mass protocol CT or MRI. Can follow up with this outpatient. Chronic medical conditions: ? CKD stage III: Creatinine at baseline, stable. ? Bilateral lower extremity edema, underlying venous insufficiency, PVD: Stable. ? Paroxysmal atrial fibrillation: Continue home diltiazem, not on anticoagulation. ? Hypertension: Continue home torsemide and diltiazem. ? Hyperlipidemia: Continue home fenofibrate. ? Type 2 diabetes mellitus: Continue sliding scale insulin while inpatient. ? Chronic normocytic anemia: At baseline, stable. ? Morbid obesity: BMI 44 on admit. Encouraged lifestyle modifications. Complicates hospital course, care and prognosis. ? GERD: Continue home PPI. ? Allergic rhinitis: Continue home medications. dysphagia:ST recommending regular textures and thin liquids. Easy to chew w aspiration precautions. Upright. DVT prophylaxis: Heparin subcu CODE STATUS: Full code, verified Expected disposition: to home. Charges/Coding Visit Charges Inpatient E&M: 44117 Subs Hosp L2
[2023-11-17 09:20] VITALS: BP 159/68; PULSE 78; RESP 18; TEMP 36.6; O2SAT 94
[2023-11-17 09:21] VITALS: O2SAT 91; O2SAT 96
[2023-11-17] MEDS: traMADol 50 MG Tablet PO (09:29)
[2023-11-17] MEDS: Febuxostat 40 MG TABLET PO (09:29)
[2023-11-17] MEDS: predniSONE 20 MG Tablet 40 MG PO (09:29)
[2023-11-17] MEDS: Pantoprazole Sodium 40 MG Tablet PO (09:29)
[2023-11-17] MEDS: Aspirin E.C. 81 MG Tablet PO (09:30)
[2023-11-17] MEDS: Vibegron 75 MG TABLET PO (09:30)
[2023-11-17] MEDS: Montelukast 10 MG Tablet PO (09:31)
[2023-11-17] MEDS: Menthol/Lanolin/Calamine/Znox 113 GM Tube 1 APPLIC TOPICAL (09:31)
[2023-11-17] MEDS: Loratadine 10 MG Tablet PO (09:31)
[2023-11-17] MEDS: dilTIAZem CD 180 MG Capsule PO (09:32)
[2023-11-17] MEDS: 0.9% Saline Lock 10 ML Syringe IV (09:33)
[2023-11-17] MEDS: Furosemide 40 MG/4 ML Vial IV (09:33)
[2023-11-17] MEDS: Lidocaine 5% Patch 2 PATCH TOPICAL (10:47)
[2023-11-17] MEDS: Acetaminophen 325 MG Tablet 650 MG PO (10:47)
[2023-11-17 11:22] LABS: Bedside Glucose 117 mg/dL (74-106)
[2023-11-17 11:26] VITALS: PULSE 78; RESP 20
--- NOTE | 2023-11-17 12:47 | DS.PCM_ITS ---
Providers Date of Admission: 11/14/23 Primary Care Physician: Dr. Veronica Oquendo, DO Reason For Visit: ASPIRATION PNA, COPD/ASTHMA EXAC, PANCREATITIS Diagnosis Discharge Diagnosis (1) Aspiration pneumonia: Status: Acute Code(s): J69.0 - Pneumonitis due to inhalation of food and vomit Plan 1. Suspected aspiration pneumonia, acute exacerbation of COPD, history of chronic respiratory failure on 3-4 L at home * Chest x-ray on admit showed opacity at right lung base concerning for infection versus aspiration. Required up to 6 L nasal cannula on admission. Wheezing noted on admission. Infectious workup negative to this point. * Patient still very tachypneic with ambulation. At baseline, patient still does have issues with hypoxia but this seems worse than her baseline. I am concerned that she may also have some volume overload given the edema that she has in her lower extremities. Responded well with IV furosemide. * Pulmonary toilet 2. Abdominal pain, * lipase trivially elevated at 170, but then resolved. CT ab/pelvis on the was unremarkable for pancreatitis. Therefore, pancreatitis not felt to be pr esent. No further work up at this time. * However, troponins elevated. Unclear if pt was having atypical presentation of a cardiac event, of if troponins elevated due to type 2 event from pneumonia. Check echo and stress test. Continue aspirin. * Stress test was negative for any acute ischemia. 3. Incidental 2.5 cm lesion in left kidney * CT abdomen pelvis showed a 2 cm lesion at the superior pole of the left kidney, possibly solid. Follow-up renal ultrasound showed 2.5 cm hypoechoic solid or cystic mass in the upper pole of left kidney. * Recommendation from ultrasound was correlation with renal mass protocol CT or MRI. Can follow up with this outpatient. Chronic medical conditions: ? CKD stage III: Creatinine at baseline, stable. ? Bilateral lower extremity edema, underlying venous insufficiency, PVD: Stable. ? Paroxysmal atrial fibrillation: Continue home diltiazem, not on anticoagu lation. ? Hypertension: Continue home torsemide and diltiazem. ? Hyperlipidemia: Continue home fenofibrate. ? Type 2 diabetes mellitus: Continue sliding scale insulin while inpatient. ? Chronic normocytic anemia: At baseline, stable. ? Morbid obesity: BMI 44 on admit. Encouraged lifestyle modifications. Complicates hospital course, care and prognosis. ? GERD: Continue home PPI. ? Allergic rhinitis: Continue home medications. dysphagia:ST recommending regular textures and thin liquids. Easy to chew w aspiration precautions. Upright. DVT prophylaxis: Heparin subcu CODE STATUS: Full code, verified Expected disposition: to home. Medications at Discharge Home Medications fluticasone propionate 50 mcg/actuation nasal spray,suspension 2 spray NASAL DAILY PRN PRN Congestion 06/21/17 febuxostat 40 mg tablet (Uloric) 40 mg PO DAILY gout 12/30/18 fluticasone 500 mcg-salmeterol 50 mcg/dose blistr powdr for inhalation (Advair Diskus) 1 inh inhalation BID SOB 07/17/20 acetaminophen 650 mg tablet,extended release (Tylenol Arthritis Pain) 650 mg PO Q12H 02/08/21 aspirin 81 mg tablet,delayed release 81 mg PO DAILY #1 TAB 02/08/21 loratadine 10 mg tablet (Claritin) 10 mg PO DAILY Allergy 01/14/22 mirabegron 50 mg tablet,extended release 24 hr (Myrbetriq) 50 mg PO DAILY overactive bladder 01/14/22 tiotropium bromide 1.25 mcg/actuation mist for inhalation (Spiriva Respimat) 2 puff inhalation DAILY 01/14/22 fenofibrate nanocrystallized 145 mg tablet (Tricor) 145 mg PO DAILY Cholesterol 10/16/22 insulin glargine 100 unit/mL (3 mL) subcutaneous pen 38 unit subcut QPM DM 12/11/22 levalbuterol HCl 0.63 mg/3 mL solution for nebulization 0.63 mg inhalation Q6H PRN wheeze 12/11/22 lidocaine 5 % topical patch 2 patch topical DAILY pain 12/11/22 pen needle, diabetic 32 gauge x 5/32 (BD Ultra-Fine Sonam Pen Needle) #400 ea 01/22/23 flash glucose sensor (FreeStyle Garett 2 Sensor kit) #1 ea 02/19/23 montelukast 10 mg tablet (Singulair) 10 mg PO DAILY 02/22/23 sodium chloride 0.65 % nasal spray aerosol (Deep Sea Nasal) 2 spray NASAL TID PRN PRN NASAL DRYNESS #0 mL 02/24/23 omeprazole 20 mg capsule,delayed release 20 mg PO DAILY 03/03/23 tramadol 50 mg tablet 50 mg PO Q12H 03/03/23 sitagliptin phosphate 25 mg tablet (Januvia) 25 mg PO DAILY 05/03/23 pantoprazole 40 mg tablet,delayed release 40 mg PO DAILY GERD 05/07/23 diltiazem HCl 180 mg capsule,24 hr,extended release (Tiazac) 180 mg PO DAILY #90 caps 05/19/23 Novolog FlexPen U-100 Insulin 100 unit/mL (3 mL) subcutaneous (insulin aspart U- 100) See Rx Instructions subcut TID #15 mL 06/15/23 Lactobacillus acidophilus (Acidophilus capsule) 10 mg PO DAILY 06/16/23 budesonide 0.5 mg/2 mL suspension for nebulization 0.5 mg inhalation BID PRN BREATHING 06/16/23 linaclotide 145 mcg capsule (Linzess) 145 mcg PO DAILY 06/16/23 mecobalamin (vitamin B12) 1,000 mcg chewable tablet 1,000 mcg PO DAILY 06/16/23 omega-3 fatty acids 1,000 mg capsule (Super Big Pool-3) 1,000 mg PO DAILY 06/16/23 sour scott extract 1,000 mg capsule (Tart Scott Extract) 1,200 mg PO DAILY 06/16/23 albuterol sulfate 90 mcg/actuation aerosol inhaler 2 puff inhalation Q4H PRN sob #8.5 grams 11/17/23 cefuroxime axetil 500 mg tablet 500 mg PO BID #8 tabs 11/17/23 ipratropium 0.5 mg-albuterol 3 mg (2.5 mg base)/3 mL nebulization soln 3 ml inhalation BID PRN wheezing #180 mL 11/17/23 metronidazole 500 mg tablet 500 mg PO Q8H 4 days #12 tabs 11/17/23 prednisone 20 mg tablet 40 mg (2 x 20 mg) PO BREAKFAST 4 days #8 tabs 11/17/23 torsemide 10 mg tablet 10 mg PO DAILY #30 tabs 11/17/23 Hospital Course Operations None Procedures None Summary of Care Provided Minutes Spent on Discharge: 35 Hospital Course: Patient presents with dyspnea, cough and nausea and vomiting. Patient was diagnosed with pneumonia and was started on pip-tazo. Patient did not really have much improvement so was started on furosemide. Patient seemed to respond well with that appear to be a component of some CHF. EF was 55% from echocardiogram due to heart failure with preserved ejection fraction. Patient did have a mild elevation her cardiac enzymes and stress test was negative for any acute process. [place] to be a type II event from the respiratory distress. Patient has multiple medication allergies so it is concerning the patient may have had an aspiration event, however, she has allergies to amoxicillin, Au gmentin, Cipro, doxycycline and clindamycin. Patient will be on cefpodoxime as well as clindamycin. She will be on prednisone burst as well. Weight / BMI Weight Weight: 98.5 kg Body Mass Index (BMI) 43.8 ABG / Lab / Microbiology Data 11/17/23 06:10 11/17/23 06:10 Laboratory: Laboratory Results - last 24 hr 11/16/23 12:29: POC Glucose 158 H 11/16/23 16:16: POC Glucose 333 H 11/16/23 22:16: POC Glucose 242 H 11/17/23 06:10: WBC 10.4, RBC 3.54 L, Hgb 10.5 L, Hct 33.5 L, MCV 94.6, MCH 29.7, MCHC 31.3 L, RDW Std Deviation 50.3 H, RDW Coeff of Jazz[place] 14.5, Plt Count 242, MPV 10.0, Immature Gran % (Auto) 1.600 H, Neut % (Auto) 79.5 H, Lymph % (Auto) 7.7 L, [place] % (Auto) 10.1 H, Eos % (Auto) 0.7, Baso % (Auto) 0.4, Absolute Neuts (auto) 8.2 H, Absolute Lymphs (auto) 0.80 L, Nucleated RBC % 0, Sodium 140, Potassium 3.8, Chloride 103, Carbon Dioxide 32.0, Anion Gap 5, BUN 44 H, Creatinine 1.62 H, Estim Creat Clear Calc 48.81, Est GFR (MDRD) Af Amer 40 L, Est GFR (MDRD) Non-Af 33 L, BUN/Creatinine Ratio 27.2 H, Glucose 129 H, Calcium 10.0 11/17/23 06:26: POC Glucose 120 H 11/17/23 11:05: POC Glucose 117 H Microbiology: Microbiology 11/14/23 03:40 Blood Culture (Wb) - Arm Right Blood Culture - Preliminary No growth in 48 hours. 11/14/23 03:15 Blood Culture (Wb) - Arm Right Blood Culture - Preliminary No growth in 48 hours. 11/14/23 03:15 Urine, Catheterized Urine Culture - Final Culture exhibits no growth. 11/14/23 08:32 Mucosa - Nose Respiratory Panel (PCR) - Final 11/14/23 03:27 Nasal Secretion SARS-CoV-2 & FLU Antigen (Rapid) - Final Radiography Diagnostic Testing: Radiology Impression Echocardiogram 11/14/23 08:10 Interpretation Summary The estimated ejection fraction is 55 %. Stage 1 diastolic dysfunction. Mild concentric left ventricular hypertrophy. Trivial pericardial effusion., No hemodynamic compromise No significant change from prior echocardiogram The study was technically difficult. Contrast injection was performed. Ordering Physician: Jessica Christianson Referring Physician: Veronica Oquendo M.D. Performed By: Dre Merritt RCS D/C Instructions Discharge Diet: 8 Cup Fluid Restriction and - (regular textures and thin liquids. Easy to chew w aspiration precautions. Upright.) Meaningful Use Info Meaningful Use Diagnoses (Choose all that apply): None applicable Discharge Plan Admission Admit Date/Time: 11/14/23 06:50 Primary Reason for Your Visit: pneumonia Attending Provider: Hoang Robison Primary Care Provider: Veronica Oquendo Consulting Providers: Calvin Rush Alexander Instructions Additional Instructions / Restrictions: You presented with what appeared to be a pneumonia. You are on antibiotics intravenously while you are here. Recommend continuing with to antibiotics upon discharge until completed. I am also concerned that you had volume overload with heart failure. He responded well with the IV furosemide. Do recommend that you weigh yourself daily and to take an additional dose of torsemide if you put on more than 2 pounds in 1 day or 3 pounds in 1 week. Please keep a record of your weights to keep track of to see if you are putting on weight or not. Discharge Orders/Prescriptions Prescriptions: New prednisone 20 mg Tablet 40 mg PO BREAKFAST 4 Days Qty: 8 0RF cefuroxime axetil 500 mg tablet 500 mg PO BID Qty: 8 0RF metronidazole 500 mg tablet 500 mg PO Q8H 4 Days Qty: 12 0RF Continued fluticasone propion-salmeterol [Advair Diskus] 500-50 mcg/dose blister with device 1 inh INHALATION BID acetaminophen [Tylenol Arthritis Pain] 650 mg tablet extended release 650 mg PO Q12H aspirin 81 mg tablet,delayed release (DR/EC) 81 mg PO DAILY Qty: 1 0RF levalbuterol HCl 0.63 mg/3 mL solution for nebulization 0.63 mg inhalation Q6H PRN (Reason: wheeze) lidocaine 5 % adhesive patch,medicated 2 patch topical DAILY Rx Instructions: leave on most painful area for up to 12 hrs insulin glargine 100 unit/mL (3 mL) insulin pen 38 unit SC QPM budesonide 0.5 mg/2 mL suspension for nebulization 0.5 mg inhalation BID PRN (Reason: BREATHING) fenofibrate nanocrystallized [Tricor] 145 mg tablet 145 mg PO DAILY tramadol 50 mg tablet 50 mg PO Q12H omeprazole 20 mg capsule,delayed release(DR/EC) 20 mg PO DAILY mecobalamin (vitamin B12) 1,000 mcg tablet,chewable 1,000 mcg PO DAILY omega-3 fatty acids [Super Big Pool-3] 1,000 mg capsule 1,000 mg PO DAILY Acidophilus Capsule 10 mg PO DAILY Linzess 145 mcg capsule 145 mcg PO DAILY Tart Scott Extract 1,000 mg capsule 1,200 mg PO DAILY fluticasone propionate 1 SPRAY spray,suspension 2 spray NASAL DAILY PRN PRN (Reason: Congestion) febuxostat [Uloric] 40 MG tablet 40 mg PO DAILY pantoprazole 40 mg tablet,delayed release (DR/EC) 40 mg PO DAILY loratadine [Claritin] 10 mg Tablet 10 mg PO DAILY Myrbetriq 50 mg Tablet Extended Release 24 Hr 50 mg PO DAILY Spiriva Respimat 1.25 mcg/actuation Mist 2 puff INHALATION DAILY montelukast [Singulair] 10 mg Tablet 10 mg PO DAILY Deep Sea Nasal 0.65 % Aerosol,[place] 2 spray NASAL TID PRN PRN (Reason: NASAL DRYNESS) Qty: 0 0RF Januvia 25 mg Tablet 25 mg PO DAILY ipratropium-albuterol 0.5 mg-3 mg(2.5 mg base)/3 mL solution for nebulization 3 ml inhalation BID PRN (Reason: wheezing) Qty: 180 0RF torsemide 10 mg tablet 10 mg PO DAILY Qty: 30 0RF Rx Instructions: take daily but take an extra dose for weight gain of 2 pounds in 1 day or 3 pounds in 1 week. albuterol sulfate 90 mcg/actuation HFA aerosol inhaler 2 puff INHALATION Q4H PRN (Reason: sob) Qty: 8.5 0RF (DME) pen needle, diabetic [BD Ultra-Fine Sonam Pen Needle] 32 gauge x 5/32 needle See Rx Instructions .ROUTE .MEDSUPPLY Qty: 400 3RF Rx Instructions: 4times daily (DME) FreeStyle Garett 2 Sensor Kit See Rx Instructions .ROUTE .MEDSUPPLY Qty: 1 0RF Rx Instructions: 1 sensor q 14 days diltiazem HCl [Tiazac] 180 mg capsule,extended release 24 hr 180 mg PO DAILY Qty: 90 3RF insulin aspart U-100 [Novolog FlexPen U-100 Insulin] 100 unit/mL (3 mL) insulin pen See Rx Instructions subcut TID MDD 60 Qty: 15 0RF Rx Instructions: 8-17 with meals subcut three times a day; Referrals / Follow Up: Veronica Oquendo DO [Primary Care Provider] - Within 2 Weeks Octavio Delgado MD [Med Staff - Active Staff] - Within 1 Month Disposition Disposition (needs filled in before D/C Order can be placed): Home Health Service Charges/Coding Visit Charges Inpatient E&M: 98378 Disch Hosp >30min
[2023-11-17 13:46] VITALS: BP 150/77; PULSE 78; RESP 18; TEMP 36.6; O2SAT 95
--- NOTE | 2023-11-17 13:58 | CASEMGMT ---
Addendum entered by Alannah Rosas 11/17/23 14:21: SARA BARON received called from [facility]. They are able to accept the patient with planned start of care for tomorrow. SARA BARON updated patient and patient. Patient had no further questions or concerns. Original Note: Patient has order for discharge. Patient requesting [facility] at discharge, referral made, awaiting acceptance. Patient denied further needs at discharge. Patient has oxygen portability for at discharge. Patient had no further questions or concerns.
--- NOTE | 2023-11-17 14:34 | CASEMGMT ---
Patient has a Healthcare Power of Mix [employer] and a Healthcare Living Will. Patient is aware they are not on file at [facility] and to bring in copies. Ama BROOKS
--- NOTE | 2023-11-17 14:55 | PHA.DC_ITS ---
Pharmacy [facility] has performed discharge medication reconciliation and counseling for this patient. 1. CEFUROXIME 500MG PO BID X 4 DAYS 2. METRONIDAZOLE 500MG PO Q8 X 4 DAYS 3. PREDNISONE 40MG PO DAILYCM X 4 DAYS The patient's discharge medication list was reviewed for discrepancies and discrepancies were resolved. The patient was counseled on the following discharge medications and changes in medications for homegoing were reviewed. The Reason for Use, instructions for use, and potential side effects were reviewed for all new medications. The patient's questions regarding all of their medications were answered. The patient was able to verbally demonstrate an understanding of their discharge medications. Medications at Discharge Home Medications fluticasone propionate 50 mcg/actuation nasal spray,suspension 2 spray NASAL DAILY PRN PRN Congestion 06/21/17 febuxostat 40 mg tablet (Uloric) 40 mg PO DAILY gout 12/30/18 fluticasone 500 mcg-salmeterol 50 mcg/dose blistr powdr for inhalation (Advair Diskus) 1 inh inhalation BID SOB 07/17/20 acetaminophen 650 mg tablet,extended release (Tylenol Arthritis Pain) 650 mg PO Q12H 02/08/21 aspirin 81 mg tablet,delayed release 81 mg PO DAILY #1 TAB 02/08/21 loratadine 10 mg tablet (Claritin) 10 mg PO DAILY Allergy 01/14/22 mirabegron 50 mg tablet,extended release 24 hr (Myrbetriq) 50 mg PO DAILY overactive bladder 01/14/22 tiotropium bromide 1.25 mcg/actuation mist for inhalation (Spiriva Respimat) 2 puff inhalation DAILY 01/14/22 fenofibrate nanocrystallized 145 mg tablet (Tricor) 145 mg PO DAILY Cholesterol 10/16/22 insulin glargine 100 unit/mL (3 mL) subcutaneous pen 38 unit subcut QPM DM 12/11/22 levalbuterol HCl 0.63 mg/3 mL solution for nebulization 0.63 mg inhalation Q6H PRN wheeze 12/11/22 lidocaine 5 % topical patch 2 patch topical DAILY pain 12/11/22 pen needle, diabetic 32 gauge x 5/32 (BD Ultra-Fine Sonam Pen Needle) #400 ea 01/22/23 flash glucose sensor (FreeStyle Garett 2 Sensor kit) #1 ea 02/19/23 montelukast 10 mg tablet (Singulair) 10 mg PO DAILY 02/22/23 sodium chloride 0.65 % nasal spray aerosol (Deep Sea Nasal) 2 spray NASAL TID PRN PRN NASAL DRYNESS #0 mL 02/24/23 omeprazole 20 mg capsule,delayed release 20 mg PO DAILY 03/03/23 tramadol 50 mg tablet 50 mg PO Q12H 03/03/23 sitagliptin phosphate 25 mg tablet (Januvia) 25 mg PO DAILY 05/03/23 pantoprazole 40 mg tablet,delayed release 40 mg PO DAILY GERD 05/07/23 diltiazem HCl 180 mg capsule,24 hr,extended release (Tiazac) 180 mg PO DAILY #90 caps 05/19/23 Novolog FlexPen U-100 Insulin 100 unit/mL (3 mL) subcutaneous (insulin aspart U- 100) See Rx Instructions subcut TID #15 mL 06/15/23 Lactobacillus acidophilus (Acidophilus capsule) 10 mg PO DAILY 06/16/23 budesonide 0.5 mg/2 mL suspension for nebulization 0.5 mg inhalation BID PRN BREATHING 06/16/23 linaclotide 145 mcg capsule (Linzess) 145 mcg PO DAILY 06/16/23 mecobalamin (vitamin B12) 1,000 mcg chewable tablet 1,000 mcg PO DAILY 06/16/23 omega-3 fatty acids 1,000 mg capsule (Super [place]-3) 1,000 mg PO DAILY 06/16/23 sour scott extract 1,000 mg capsule (Tart Scott Extract) 1,200 mg PO DAILY 06/16/23 albuterol sulfate 90 mcg/actuation aerosol inhaler 2 puff inhalation Q4H PRN sob #8.5 grams 11/17/23 cefuroxime axetil 500 mg tablet 500 mg PO BID #8 tabs 11/17/23 ipratropium 0.5 mg-albuterol 3 mg (2.5 mg base)/3 mL nebulization soln 3 ml inhalation BID PRN wheezing #180 mL 11/17/23 metronidazole 500 mg tablet 500 mg PO Q8H 4 days #12 tabs 11/17/23 prednisone 20 mg tablet 40 mg (2 x 20 mg) PO BREAKFAST 4 days #8 tabs 11/17/23 torsemide 10 mg tablet 10 mg PO DAILY #30 tabs 11/17/23
== END 2023-11-17 15:01 | disposition home health service (06) | DRG 177 ==
LOC: ED 06:53 → PCU 07:07
PROVIDERS: Family Medicine; Hospitalist; Admitting Provider Family Medicine; Emergency Provider Emergency Medicine; PCP Internal Medicine
DX: J69.0 Pneumonitis due to inhalation of food and vomit (principal); I50.33 Acute on chronic diastolic (congestive) heart failure; J96.11 Chronic respiratory failure with hypoxia; I13.0 Hypertensive heart and chronic kidney disease with heart failure and stage 1 through stage 4 chronic kidney disease, or unspecified chronic kidney disease; Z68.41 Body mass index [BMI] 40.0-44.9, adult; J44.1 Chronic obstructive pulmonary disease with (acute) exacerbation; I27.21 Secondary pulmonary arterial hypertension; E11.22 Type 2 diabetes mellitus with diabetic chronic kidney disease; N18.30 Chronic kidney disease, stage 3 unspecified; E66.01 Morbid (severe) obesity due to excess calories; Z79.4 Long term (current) use of insulin; I48.0 Paroxysmal atrial fibrillation; E11.51 Type 2 diabetes mellitus with diabetic peripheral angiopathy without gangrene; J30.9 Allergic rhinitis, unspecified; E78.5 Hyperlipidemia, unspecified; I87.2 Venous insufficiency (chronic) (peripheral); K21.9 Gastro-esophageal reflux disease without esophagitis; D86.9 Sarcoidosis, unspecified; G47.33 Obstructive sleep apnea (adult) (pediatric); Z11.52 Encounter for screening for COVID-19; R79.89 Other specified abnormal findings of blood chemistry; Z99.81 Dependence on supplemental oxygen; Z79.82 Long term (current) use of aspirin; Z79.51 Long term (current) use of inhaled steroids; Z79.899 Other long term (current) drug therapy; Z87.891 Personal history of nicotine dependence
CPT/HCPCS: 36415; 71045; 74176; 76770; 78452; 80048; 80053; 80061; 81001; 82803; 82962; 83605; 83690; 83735; 83880; 84484; 85025; 85610; 85730; 87040; 87086; 87428; 87633; 92526; 92610; 93005; 93017; 93306; 94640; 94668; 97162; 97166; 97530; 97535; 99285; A9500; J7030; J7040; J7050; Q9957; A4216; C8929; J1940; J2405; J2785

== ENCOUNTER → 2024-01-15 | Outpatient (CLI) | payer MEDICARE, OTHER, SELFPAY ==
[2022-07-11 11:12] VITALS: BMI 40.4
--- NOTE | 2024-01-15 13:39 | US_ITS ---
EXAM: US RETROPERITONEAL LIMITED, RENAL CLINICAL INDICATION: renal mass left TECHNIQUE: Limited grayscale and color Doppler sonographic evaluation of the retroperitoneum was performed. COMPARISON: 11/14/2023 FINDINGS: RIGHT KIDNEY: The right kidney measures 13.1 x 6.6 x 7.2 cm. The right renal cortex measures 2. There is a 5 mm nonobstructing stone in the right kidney. No perinephric collection is demonstrated. LEFT KIDNEY: The left kidney measures 7.8 x 3 r by 3.5 cm. The left renal cortex measures 8 mm. The left kidney is increased in echogenicity. There are hypoechoic structures in the left kidney that measure 2.0 x 1.3 and 1.3 x 0.9 cm. These appear to be solid nodules. These were present on the previous exam. No hydronephrosis. No shadowing calculus. No perinephric collection is demonstrated. BLADDER: The bladder measures 7.2 x 4.6 x 8.1 cm for volume of 139 mL. The bladder wall measures 3 mm. There are bilateral ureteral jets present. US/Kidney and Bladder IMPRESSION: Small echogenic left kidney compatible with chronic renal disease. There are solid-appearing nodules in the left kidney which are stable. Evaluation with MRI may be beneficial. There has been no significant change from the reference exam. Electronically Signed: Ha Enrique MD at 19:34 EST ,
== END | disposition home or self-care (01) ==
LOC: US 13:37
PROVIDERS: PCP Internal Medicine; Referring Provider Internal Medicine; Visit Provider Internal Medicine
DX: N28.89 Other specified disorders of kidney and ureter (principal)
CPT/HCPCS: 76770

== ENCOUNTER → 2024-02-02 | Outpatient (CLI) | payer MEDICARE, OTHER, SELFPAY ==
[2022-07-11 11:12] VITALS: BMI 40.4
[2024-02-02 15:24] LABS: Mean Corp Hgb Conc 31.4 g/dL (32-36); Mean Corpuscular Hgb 29.6 pg (27.0-32.0); Mean Corpuscular Volume 94.3 fL (81-99); Mean Platelet Vol. 10.3 fl (6.2-12.0); Platelet Count 248 K/mm3 (150-450); RBC Distribution Width CV 14.4 % (11.6-14.6); Red Blood Count 3.71 M/mm3 (4.2-5.4); White Blood Count 7.5 K/mm3 (4.4-11.0)
[2024-02-02 15:40] LABS: Albumin, Serum 3.7 g/dL (3.2-5.0); BUN 49 mg/dL (7-18); BUN/Creat Ratio 26.2 RATIO (10-20); Calcium,Total 10.7 mg/dL (8.5-10.1); Chloride 106 mmol/L (98-107); Creatinine, Serum 1.87 mg/dL (0.55-1.02); EST Glomerular Filtration Rate 28 mL/min (>60); Est Glom Filt Rate - Afr Amer 34 mL/min (>60); Glucose 176 mg/dL (74-106); Magnesium 2.1 mg/dL (1.6-2.6); Phosphorus 1.8 mg/dL (2.5-4.9); Potassium 3.9 mmol/L (3.5-5.1); Sodium Level 143 mmol/L (136-145); Uric Acid 5.3 mg/dL (2.6-6.0)
[2024-02-02 15:42] LABS: Vitamin D,25 Hydroxy 61.1 ng/mL
[2024-02-02 15:43] LABS: Microalbumin,Random Urine 78.3 mg/L (NO RANGE EST.); Microalbumin:Creatinine Ratio 206.6 mg/g CRE (<30 mg/g CRE)
[2024-02-02 16:09] LABS: PTHIN 59.6 pg/mL (18.4-80.1)
== END | disposition home or self-care (01) ==
LOC: MTLAB 11:24
PROVIDERS: PCP Internal Medicine; Referring Provider Internal Medicine Nephrology; Visit Provider Internal Medicine Nephrology
DX: E55.9 Vitamin D deficiency, unspecified (principal); N18.4 Chronic kidney disease, stage 4 (severe); D63.1 Anemia in chronic kidney disease; M10.9 Gout, unspecified
CPT/HCPCS: 36415; 80069; 82043; 82306; 82570; 83735; 83970; 84550; 85027

== ENCOUNTER → 2024-02-04 | Outpatient (CLI) | payer MEDICARE, OTHER, SELFPAY ==
[2022-07-11 11:12] VITALS: BMI 40.4
--- NOTE | 2024-02-04 13:09 | RAD_ITS ---
INDICATION: cough EXAMINATION/TECHNIQUE: X-RAY - AP view of chest COMPARISON: Chest x-ray from 11/14/2023 FINDINGS: LINES/DEVICES: None. LUNGS: No overt pulmonary edema or focal airspace consolidation. Benign pulmonary granulomatous calcifications again noted. No sizable pleural effusion. No detectable pneumothorax. MEDIASTINUM AND CARDIOVASCULAR STRUCTURES: Stable slightly enlarged heart shadow. Benign calcified mediastinal and hilar lymph nodes. Atherosclerotic calcifications along aorta. BONES AND SOFT TISSUES: Skeletal degenerative changes with stable dextroscoliotic curvature of spine. RAD/Chest PA and Lateral IMPRESSION: Cardiomegaly with evidence of previous intrathoracic granulomatous infection. Electronically Signed: Rayo Jackson MD at 22:30 EST ,
== END | disposition home or self-care (01) ==
LOC: MTRAD 13:09
PROVIDERS: PCP Internal Medicine; Referring Provider Internal Medicine; Visit Provider Internal Medicine
DX: R05.9 Cough, unspecified (principal)
CPT/HCPCS: 71046

== ENCOUNTER → 2024-03-09 | Outpatient (CLI) | payer MEDICARE, OTHER, SELFPAY ==
[2022-07-11 11:12] VITALS: BMI 40.4
--- NOTE | 2024-03-09 14:37 | RAD_ITS ---
STUDY: X-RAY CHEST REASON FOR EXAM: Female, 73 years old. SOB TECHNIQUE: PA and lateral views of the chest. COMPARISON: None. FINDINGS: The lungs are clear and expanded. There is no demonstrated pleural abnormality. There is moderate cardiac enlargement. Normal mediastinum and arthur. Normal visualized pulmonary arteries. Normal visualized aortic arch and descending thoracic aorta. There is a dextroscoliosis of the thoracic spine. Normal visualized ribs, clavicles, and shoulders. There is no demonstrated abnormality of the visualized soft tissue structures of the upper abdomen. RAD/Chest PA and Lateral IMPRESSION: No active disease. Cardiomegaly. Electronically Signed: Ag Stanton MD at 22:08 EDT ,
== END | disposition home or self-care (01) ==
LOC: MTRAD 14:37
PROVIDERS: PCP Internal Medicine; Referring Provider Internal Medicine Pulmonary Disease; Visit Provider Internal Medicine Pulmonary Disease
DX: R06.02 Shortness of breath (principal)
CPT/HCPCS: 71046

== ENCOUNTER → 2024-04-08 | Outpatient (CLI) | payer MEDICARE, OTHER, SELFPAY ==
[2022-07-11 11:12] VITALS: BMI 40.4
[2024-04-08 18:00] LABS: BNP,B-Type NATRIURETIC PEPTIDE 124.6 pg/mL (0-100)
== END | disposition home or self-care (01) ==
LOC: MTLAB 16:16
PROVIDERS: PCP Internal Medicine; Referring Provider Internal Medicine Pulmonary Disease; Visit Provider Internal Medicine Pulmonary Disease
DX: R06.02 Shortness of breath (principal)
CPT/HCPCS: 36415; 83880

== ENCOUNTER → 2024-04-11 | Outpatient (CLI) | payer MEDICARE, OTHER, SELFPAY ==
[2022-07-11 11:12] VITALS: BMI 40.4
[2024-04-11 13:04] LABS: Hematocrit 32.7 % (37-47); Hemoglobin 10.6 g/dL (12.0-15.0); Mean Corp Hgb Conc 32.4 g/dL (32-36); Mean Corpuscular Volume 95.6 fL (81-99); Mean Platelet Vol. 10.3 fl (6.2-12.0); Platelet Count 236 K/mm3 (150-450); RBC Distribution Width CV 14.7 % (11.6-14.6); RBC Distribution Width SD 51.5 fl (35.1-43.9); Red Blood Count 3.42 M/mm3 (4.2-5.4); White Blood Count 10.2 K/mm3 (4.4-11.0)
[2024-04-11 13:30] LABS: Albumin, Serum 3.3 g/dL (3.2-5.0); BUN 51 mg/dL (7-18); BUN/Creat Ratio 25.8 RATIO (10-20); Calcium,Total 10.7 mg/dL (8.5-10.1); Chloride 102 mmol/L (98-107); Creatinine, Serum 1.98 mg/dL (0.55-1.02); EST Glomerular Filtration Rate 26 mL/min (>60); Est Glom Filt Rate - Afr Amer 32 mL/min (>60); Glucose 165 mg/dL (74-106); Magnesium 1.9 mg/dL (1.6-2.6); Phosphorus 3.1 mg/dL (2.5-4.9); Potassium 3.9 mmol/L (3.5-5.1); Sodium Level 138 mmol/L (136-145); Uric Acid 5.9 mg/dL (2.6-6.0)
[2024-04-11 13:31] LABS: Microalbumin:Creatinine Ratio 104.4 mg/g CRE (<30 mg/g CRE)
[2024-04-11 15:27] LABS: Vitamin D,25 Hydroxy 83.3 ng/mL
[2024-04-11 16:30] LABS: PTHIN 60.6 pg/mL (18.4-80.1)
[2024-04-13 12:10] LABS: Vitamin D 1,25-Dihydroxy 51.1 pg/mL (24.8-81.5)
== END | disposition home or self-care (01) ==
LOC: LAB 11:39
PROVIDERS: PCP Internal Medicine; Referring Provider Internal Medicine Nephrology; Visit Provider Internal Medicine Nephrology
DX: N18.4 Chronic kidney disease, stage 4 (severe) (principal); E55.9 Vitamin D deficiency, unspecified; D63.1 Anemia in chronic kidney disease; M10.9 Gout, unspecified
CPT/HCPCS: 36415; 80069; 82043; 82306; 82570; 82652; 83735; 83970; 84550; 85027

== ENCOUNTER 2024-04-15 02:07 | Inpatient (IN) | payer MEDICARE, OTHER, SELFPAY ==
[2022-07-11 11:12] VITALS: BMI 40.4
[2024-04-15] VITALS (11 sets, daily range): BP systolic 115–165; BP diastolic 37–77; PULSE 61–76; RESP 16–20; TEMP 36.1–36.8; O2SAT 93–100; BMI 44.4
--- NOTE | 2024-04-15 02:18 | CT_ITS ---
INDICATION: fall, left rib pain EXAMINATION: CT Chest, Abdomen and Pelvis W/O Contrast Injection TECHNIQUE: Helically acquired images were obtained of the chest, abdomen and pelvis with sagittal and coronal reconstructed images. Individualized dose optimization techniques were used for this CT. IV contrast dosage and agent: None. Oral contrast: None. COMPARISON: 11/14/2023 CT abdomen/pelvis. FINDINGS: --Chest: LUNGS, PLEURA AND LARGE AIRWAYS: Right upper lobe and right middle lobe airspace opacities. Calcified granuloma in the right lower lobe. Stable lobulated nodular density in the left lower lobe . Small bilateral pleural effusions. No pneumothorax. THYROID: Unremarkable. HEART AND PERICARDIUM: Coronary artery calcifications are present. No pericardial effusion. MEDIASTINUM AND DEMETRIUS: No mediastinal or hilar adenopathy. Esophagus is unremarkable. No hiatal hernia. VESSELS: No thoracic aortic aneurysm. BONES: No acute abnormality. --Abdomen/Pelvis: VESSELS: No abdominal aortic aneurysm. LIVER: No intrahepatic or extrahepatic biliary duct dilation. GALLBLADDER: No calcified stones. No evidence of cholecystitis. PANCREAS: No focal solid or cystic mass. No evidence of pancreatitis. SPLEEN: Normal. ADRENAL GLANDS: Normal. KIDNEYS AND URETERS: Right renal stone. No hydronephrosis or hydroureter. Stable mild right perinephric stranding. Bilateral renal atrophy, left greater than right. Stable indeterminate left renal lesion. URINARY BLADDER: Unremarkable. BOWEL: No evidence of diverticulosis or diverticulitis. Appendix appears normal. No evidence of bowel obstruction. REPRODUCTIVE ORGANS: Unremarkable. PERITONEUM: No intraabdominal free fluid or free air. LYMPH NODES: No pathologically enlarged mesenteric or retroperitoneal lymph nodes. ABDOMINAL WALL: No abdominal or pelvic wall hernia. Left posterior lateral lower abdominal wall fluid collection with adjacent stranding measuring 6.5 x 3.6 x 9.4 cm. BONES: No acute abnormality. CT/Chest without Contrast IMPRESSION: 1. No evidence of acute traumatic injury of the chest. 2. Irregular right upper lobe and right middle lobe airspace opacities which may represent pneumonia. Recommend follow-up CT in 4-6 weeks to ensure resolution/improvement and exclude neoplasm. 3. Small bilateral pleural effusions. 4. 6.5 x 3.6 x 9.4 cm left posterior lateral lower abdominal wall fluid collection most likely representing a hematoma, given history. Electronically Signed: Andry Evans DO at 3:50 EDT ,
--- NOTE | 2024-04-15 02:19 | CT_ITS ---
INDICATION: fall, abd wall hematoma EXAMINATION: CT Chest, Abdomen and Pelvis W/O Contrast Injection TECHNIQUE: Helically acquired images were obtained of the chest, abdomen and pelvis with sagittal and coronal reconstructed images. Individualized dose optimization techniques were used for this CT. IV contrast dosage and agent: None. Oral contrast: None. COMPARISON: 11/14/2023 CT abdomen/pelvis. FINDINGS: --Chest: LUNGS, PLEURA AND LARGE AIRWAYS: Right upper lobe and right middle lobe airspace opacities. Calcified granuloma in the right lower lobe. Stable lobulated nodular density in the left lower lobe . Small bilateral pleural effusions. No pneumothorax. THYROID: Unremarkable. HEART AND PERICARDIUM: Coronary artery calcifications are present. No pericardial effusion. MEDIASTINUM AND DEMETRIUS: No mediastinal or hilar adenopathy. Esophagus is unremarkable. No hiatal hernia. VESSELS: No thoracic aortic aneurysm. BONES: No acute abnormality. --Abdomen/Pelvis: VESSELS: No abdominal aortic aneurysm. LIVER: No intrahepatic or extrahepatic biliary duct dilation. GALLBLADDER: No calcified stones. No evidence of cholecystitis. PANCREAS: No focal solid or cystic mass. No evidence of pancreatitis. SPLEEN: Normal. ADRENAL GLANDS: Normal. KIDNEYS AND URETERS: Right renal stone. No hydronephrosis or hydroureter. Stable mild right perinephric stranding. Bilateral renal atrophy, left greater than right. Stable indeterminate left renal lesion. URINARY BLADDER: Unremarkable. BOWEL: No evidence of diverticulosis or diverticulitis. Appendix appears normal. No evidence of bowel obstruction. REPRODUCTIVE ORGANS: Unremarkable. PERITONEUM: No intraabdominal free fluid or free air. LYMPH NODES: No pathologically enlarged mesenteric or retroperitoneal lymph nodes. ABDOMINAL WALL: No abdominal or pelvic wall hernia. Left posterior lateral lower abdominal wall fluid collection with adjacent stranding measuring 6.5 x 3.6 x 9.4 cm. BONES: No acute abnormality. CT/Abdomen/Pelvis without Cont IMPRESSION: 1. No evidence of acute traumatic injury of the chest. 2. Irregular right upper lobe and right middle lobe airspace opacities which may represent pneumonia. Recommend follow-up CT in 4-6 weeks to ensure resolution/improvement and exclude neoplasm. 3. Small bilateral pleural effusions. 4. 6.5 x 3.6 x 9.4 cm left posterior lateral lower abdominal wall fluid collection most likely representing a hematoma, given history. Electronically Signed: Andry Evans DO at 3:50 EDT ,
--- NOTE | 2024-04-15 02:21 | EDS_ITS ---
HPI History of Present Illness Chief Complaint: Fall Informant: patient Onset/Context/Timing Onset: Today Narrative Narrative: Patient presents via EMS after a fall at home. She states that her foot slipped and she fell striking her left side against a rocker. She complains of pain to the left side of her chest. She does wear home oxygen at 4 L all the time. She normally ambulates with a walker or cane. She denies striking her head or loss of consciousness. She is not on any anticoagulants. [facility] Medical History (Updated 04/15/24 @ 05:[address] Debby Angel MD) Melanoma High triglycerides Hearing problem Back problem Arthritis Lower extremity edema COVID-19 Osteoporosis Diabetes Secondary pulmonary arterial hypertension Muscle spasm Constipation Overactive bladder Gout Allergic rhinitis Osteoporosis Compression fracture of L1 vertebra Intractable low back pain Debility Venous insufficiency of both lower extremities Hyperuricemia GERD (gastroesophageal reflux disease) Morbid obesity Noncompliance with CPAP treatment Obstructive sleep apnea Chronic renal failure, stage 3 (moderate) Dysphagia Osteopenia Right bundle branch block (RBBB) Asthma Essential (primary) hypertension Paroxysmal atrial fibrillation Obesity (BMI 30-39.9) Pneumonia Lung abscess On home O2 Sarcoidosis Type 2 diabetes mellitus Chronic obstructive lung disease Hyperlipidemia Home Medications ?Medication ?Instructions ?Recorded ?Last Taken ?Type fluticasone propionate 50 2 spray NASAL DAILY PRN PRN 06/21/17 11/19/20 History mcg/actuation nasal Congestion spray,suspension febuxostat 40 mg tablet (Uloric) 40 mg PO DAILY gout 12/30/18 11/19/20 History fluticasone 500 mcg-salmeterol 50 1 inh inhalation BID SOB 07/17/20 11/19/20 History mcg/dose blistr powdr for inhalation (Advair Diskus) acetaminophen 650 mg 650 mg PO Q12H 02/08/21 Unknown History tablet,extended release (Tylenol Arthritis Pain) aspirin 81 mg tablet,delayed 81 mg PO DAILY #1 TAB 02/08/21 Unknown Rx release loratadine 10 mg tablet (Claritin) 10 mg PO DAILY Allergy 01/14/22 Unknown History mirabegron 50 mg tablet,extended 50 mg PO DAILY overactive bladder 01/14/22 Unknown History release 24 hr (Myrbetriq) tiotropium bromide 1.25 2 puff inhalation DAILY 01/14/22 Unknown History mcg/actuation mist for inhalation (Spiriva Respimat) fenofibrate nanocrystallized 145 145 mg PO DAILY Cholesterol 10/16/22 Unknown History mg tablet (Tricor) insulin glargine 100 unit/mL (3 38 unit subcut QPM DM 12/11/22 Unknown History mL) subcutaneous pen levalbuterol HCl 0.63 mg/3 mL 0.63 mg inhalation Q6H PRN wheeze 12/11/22 Unknown History solution for nebulization lidocaine 5 % topical patch 2 patch topical DAILY pain 12/11/22 Unknown History pen needle, diabetic 32 gauge x #400 ea 01/22/23 Unknown Rx (BD Ultra-Fine Sonam Pen Needle) montelukast 10 mg tablet 10 mg PO DAILY 02/22/23 Unknown History (Singulair) omeprazole 20 mg capsule,delayed 20 mg PO DAILY 03/03/23 Unknown History release tramadol 50 mg tablet 50 mg PO Q12H 03/03/23 Unknown History pantoprazole 40 mg tablet,delayed 40 mg PO DAILY GERD 05/07/23 Unknown History release Lactobacillus acidophilus 10 mg PO DAILY 06/16/23 Unknown History (Acidophilus capsule) budesonide 0.5 mg/2 mL suspension 0.5 mg inhalation BID PRN BREATHING 06/16/23 Unknown History for nebulization linaclotide 145 mcg capsule 145 mcg PO DAILY 06/16/23 Unknown History (Linzess) mecobalamin (vitamin B12) 1,000 1,000 mcg PO DAILY 06/16/23 Unknown History mcg chewable tablet sour scott extract 1,000 mg 1,200 mg PO DAILY 06/16/23 Unknown History capsule (Tart Scott Extract) albuterol sulfate 90 mcg/actuation 2 puff inhalation Q4H PRN sob #8.5 11/17/23 Unknown Rx aerosol inhaler grams torsemide 10 mg tablet 10 mg PO DAILY #30 tabs 11/17/23 Unknown Rx flash glucose sensor (FreeStyle #6 ea 01/18/24 Unknown Rx Garett 2 Sensor kit) insulin aspart U-100 100 unit/mL See Rx Instructions subcut TID 03/08/24 Unknown History (3 mL) subcutaneous pen (Novolog FlexPen U-100 Insulin aspart) diltiazem HCl 180 mg capsule,24 180 mg PO DAILY #90 caps 03/21/24 Unknown Rx hr,extended release (Tiazac) Allergy/AdvReac Type Severity Reaction Status Date / Time doxycycline Allergy Intermediate GI problems Verified 04/15/24 02:08 clindamycin Allergy Rash Verified 04/15/24 02:08 insulin detemir (From Allergy Rash Verified 04/15/24 02:08 Levemir U-100 Insulin) ciprofloxacin AdvReac Mild Upset Verified 04/15/24 02:08 Stomach amoxicillin trihydrate (From AdvReac Nausea Verified 04/15/24 02:08 Augmentin) potassium clavulanate (From AdvReac Nausea Verified 04/15/24 02:08 Augmentin) Family History Father Hypertension Colon cancer Cancer lung Mother Hypertension Heart disease Diabetes Other Hypercholesterolemia Melanoma Surgical History History of right and left heart catheterization (05/04/20) History of cholecystectomy History of laminectomy History of knee replacement procedure of left knee Social History Smoking Status: Former smoker how long ago did patient quit smokin years ago alcohol intake: never substance use type: does not use caffeine: Yes Type: coffee Number of servings: 2 additional social history: Uses aspirin. Does not use ibuprofen. ROS ROS ED Constitutional Constitutional ED: Denies chills or fever(s) Eyes Eyes: Denies discharge from eye(s) ENT ENT ED: Denies discharge from eye(s), rhinorrhea or sore throat Cardiovascular Cardiovascular: Reports chest pain and other Details: Left rib pain ; Denies palpitations Respiratory/Chest Respiratory/Chest: Denies cough or dyspnea Gastrointestinal Gastrointestinal: Reports abdominal pain; Denies diarrhea, nausea or vomiting Genitourinary Genitourinary ED: Denies dysuria Musculoskeletal Musculoskeletal: Denies back pain or extremity pain Integumentary Denies Abrasions or rash Neurologic Neurologic: Denies headache(s) or weakness Allergic/Immunologic Allergic/Immunologic ED: Denies lip swelling or urticaria EXAM Physical Exam Const Vital Signs: 04/15/24 02:08 04/15/24 02:13 04/15/24 04:08 Temperature 97 F L Temperature Source Temporal Pulse Rate 76 70 Respiratory Rate 19 H 18 Respiratory Effort Normal Non-Labored Respiratory Depth Normal Respiratory Pattern Normal Blood Pressure 122/59 H 149/61 H Blood Pressure Mean 80 90 Pulse Ox 93 94 99 Oxygen Delivery Method Nasal Cannula Nasal Cannula Nasal Cannula Oxygen Flow Rate (L/min) 4 4 4 Positive obese Nutritional Appearance: obese HEENT atraumatic Eyes EOMs intact bilaterally Neck full ROM Chest Wall inspection of chest normal Chest Narrative: Mild left lateral chest wall tenderness. No crepitus. Resp normal respiratory effort and clear to auscultation bilaterally Cardio regular rhythm Rate: regular rate GI GI Narrative: Abdomen soft, obese. Patient has a developing hematoma to the left lower lateral abdominal wall. This focal area is tender to palpation. Back/Spine normal to inspection Extremity normal to inspection Neuro oriented x3 Neuro Narrative: No focal neurologic deficit. MDM MDM MDM Narrative Medical decision making narrative: Patient placed on quality assurance monitor body. IV line initiated. Labwork obtained to evaluate for leukocytosis, anemia, and electrolyte derangement. Patient given a small dose of fentanyl for pain control. Given her chest wall pain and developing abdominal wall hematoma, CT scan of the chest and abdomen/pelvis obtained to evaluate for any intra-abdominal injuries. History & Record Review Discussion w/independent historian: Patient and Significant other Additional record(s) reviewed:: Prior labs Lab Data Attestation: I reviewed the patient's lab results. Labs: Laboratory Results - last 24 hr 04/15/24 02:30 WBC 8.2 RBC 3.27 L Hgb 9.9 L Hct 31.5 L MCV 96.3 MCH 30.3 MCHC 31.4 L RDW Std Deviation 52.3 H RDW Coeff of Jazzmine 14.8 H Plt Count 234 MPV 10.1 Immature Gran % (Auto) 2.800 H Neut % (Auto) 71.4 H Lymph % (Auto) 10.8 L Brown % (Auto) 12.4 H Eos % (Auto) 1.6 Baso % (Auto) 1.0 Absolute Neuts (auto) 5.8 Absolute Lymphs (auto) 0.88 Nucleated RBC % 0 PT 14.5 INR 1.1 APTT 26.1 Sodium 138 Potassium 3.9 Chloride 102 Carbon Dioxide 30.0 Anion Gap 6 BUN 60 H Creatinine 2.16 H Est GFR (MDRD) Af Amer 29 L Est GFR (MDRD) Non-Af 24 L BUN/Creatinine Ratio 27.8 H Glucose 147 H Calcium 10.7 H Radiography Diagnostic Testing: Clinical Impression(s) from Imaging Studies Chest CT 04/15/24 02:18 IMPRESSION: 1. No evidence of acute traumatic injury of the chest. 2. Irregular right upper lobe and right middle lobe airspace opacities which may represent pneumonia. Recommend follow-up CT in 4-6 weeks to ensure resolution/improvement and exclude neoplasm. 3. Small bilateral pleural effusions. 4. 6.5 x 3.6 x 9.4 cm left posterior lateral lower abdominal wall fluid collection most likely representing a hematoma, given history. Electronically Signed: Andry Evans DO at 3:50 EDT , Abdomen/Pelvis CT 04/15/24 02:19 IMPRESSION: 1. No evidence of acute traumatic injury of the chest. 2. Irregular right upper lobe and right middle lobe airspace opacities which may represent pneumonia. Recommend follow-up CT in 4-6 weeks to ensure resolution/improvement and exclude neoplasm. 3. Small bilateral pleural effusions. 4. 6.5 x 3.6 x 9.4 cm left posterior lateral lower abdominal wall fluid collection most likely representing a hematoma, given history. Electronically Signed: Andry HahnDO cholo at 3:50 EDT , Treatment and Re-Evaluation Narrative: CBC was a white count of 8.2 with 71% neutrophils. Hemoglobin is 9.9. Hemogl obin drawn 4 days ago was 10.6. Platelet count is 234. Coags are unremarkable. Chemistry studies reveal a BUN of 60 and a creatinine of 2.16. Creatinine 4 days ago was 1.98. CT scan of the chest, abdomen, and pelvis was obtained. No acute findings noted in the chest. Irregular right sided airspace opacities noted. Small bilateral pleural effusions. There is a 6.5 x 3.6 x 9.4 cm left posterior lateral lower abdominal wall fluid collection most likely representing a hematoma. Patient has received 2 doses of IV fentanyl here. She is resting comfortably, but states she is still having some intermittent spasms. She be given a small dose of Valium and observed to help with her muscle spasms. After approximately 1 hour, patient got up to the bedside commode. Nursing staff reports she had great difficulty in doing so and they did not feel that she was able to walk any further than just to the bedside. does not feel he can take care of her at home in this state. Patient states that she will is willing to go to rehab for therapy if needed. I will speak with the hospitalist. Discharge Plan Triage Chief Complaint: Fall ED Provider: Debby Angel Dx/Rx/DC Orders Clinical Impression: Fall, Rib contusion, Hematoma of abdominal wall Prescriptions: No Action fluticasone propion-salmeterol [Advair Diskus] 500-50 mcg/dose blister with device 1 inh INHALATION BID acetaminophen [Tylenol Arthritis Pain] 650 mg tablet extended release 650 mg PO Q12H aspirin 81 mg tablet,delayed release (DR/EC) 81 mg PO DAILY Qty: 1 0RF levalbuterol HCl 0.63 mg/3 mL solution for nebulization 0.63 mg inhalation Q6H PRN (Reason: wheeze) lidocaine 5 % adhesive patch,medicated 2 patch topical DAILY Rx Instructions: leave on most painful area for up to 12 hrs insulin glargine 100 unit/mL (3 mL) insulin pen 38 unit SC QPM budesonide 0.5 mg/2 mL suspension for nebulization 0.5 mg inhalation BID PRN (Reason: BREATHING) fenofibrate nanocrystallized [Tricor] 145 mg tablet 145 mg PO DAILY tramadol 50 mg tablet 50 mg PO Q12H omeprazole 20 mg capsule,delayed release(DR/EC) 20 mg PO DAILY mecobalamin (vitamin B12) 1,000 mcg tablet,chewable 1,000 mcg PO DAILY Acidophilus Capsule 10 mg PO DAILY Linzess 145 mcg capsule 145 mcg PO DAILY Tart Scott Extract 1,000 mg capsule 1,200 mg PO DAILY insulin aspart U-100 [Novolog FlexPen U-100 Insulin] 100 unit/mL (3 mL) insulin pen See Rx Instructions subcut TID Rx Instructions: 11-12-20 with meals subcut three times a day; fluticasone propionate 1 SPRAY spray,suspension 2 spray NASAL DAILY PRN PRN (Reason: Congestion) febuxostat [Uloric] 40 MG tablet 40 mg PO DAILY pantoprazole 40 mg tablet,delayed release (DR/EC) 40 mg PO DAILY loratadine [Claritin] 10 mg Tablet 10 mg PO DAILY Myrbetriq 50 mg Tablet Extended Release 24 Hr 50 mg PO DAILY Spiriva Respimat 1.25 mcg/actuation Mist 2 puff INHALATION DAILY montelukast [Singulair] 10 mg Tablet 10 mg PO DAILY torsemide 10 mg tablet 10 mg PO DAILY Qty: 30 0RF Rx Instructions: take daily but take an extra dose for weight gain of 2 pounds in 1 day or 3 pounds in 1 week. albuterol sulfate 90 mcg/actuation HFA aerosol inhaler 2 puff INHALATION Q4H PRN (Reason: sob) Qty: 8.5 0RF (DME) pen needle, diabetic [BD Ultra-Fine Sonam Pen Needle] 32 gauge x 5/32 needle See Rx Instructions .ROUTE .MEDSUPPLY Qty: 400 3RF Rx Instructions: 4times daily (DME) FreeStyle Garett 2 Sensor Kit See Rx Instructions .ROUTE .MEDSUPPLY Qty: 6 3RF Rx Instructions: 1 sensor q 14 days diltiazem HCl [Tiazac] 180 mg capsule,extended release 24 hr 180 mg PO DAILY Qty: 90 3RF Primary Care Provider: Veronica Oquendo Referrals: Veronica Oquendo DO [Primary Care Provider] - Print Language: Croatian Disposition Disposition: Acute Care Hospital [facility]
[2024-04-15] MEDS: fentaNYL 100 MCG/2 ML Ampul 25 MCG IV ×2 (02:29→03:37)
[2024-04-15 02:44] LABS: Absolute Lymphocyte Count 0.88 X10^3/uL (0.83-4.51); Absolute Neutrophil Count 5.8 X10^3/uL (2.0-7.7); Basophil# 0.08 X10^3/uL; Eosinophil# 0.13 X10^3/uL; Eosinophils% 1.6 % (0-5); Hematocrit 31.5 % (37-47); Hemoglobin 9.9 g/dL (12.0-15.0); Lymphocyte # 0.88 X10^3/ul (0.83-4.51); Lymphocyte % 10.8 % (19-41); Mean Corp Hgb Conc 31.4 g/dL (32-36); Mean Corpuscular Hgb 30.3 pg (27.0-32.0); Mean Corpuscular Volume 96.3 fL (81-99); Mean Platelet Vol. 10.1 fl (6.2-12.0); Monocyte# 1.01 X10^3/uL; Monocyte% 12.4 % (0-10); NRBC Flagged by Analyzer 0 % (0-5); Neutrophil # 5.82 X10^3/uL (2.7-7.7); Neutrophil % 71.4 % (47-70); Platelet Count 234 K/mm3 (150-450); RBC Distribution Width CV 14.8 % (11.6-14.6); RBC Distribution Width SD 52.3 fl (35.1-43.9); Red Blood Count 3.27 M/mm3 (4.2-5.4); White Blood Count 8.2 K/mm3 (4.4-11.0)
[2024-04-15 02:53] LABS: International Normalized Ratio 1.1; Prothrombin Time (Protime)PT. 14.5 SECONDS (11.7-14.9)
[2024-04-15 02:54] LABS: Partial Thromboplast Time 26.1 Seconds (24.1-36.2)
[2024-04-15 02:59] LABS: Anion Gap 6 (5-15); BUN 60 mg/dL (7-18); BUN/Creat Ratio 27.8 RATIO (10-20); Calcium,Total 10.7 mg/dL (8.5-10.1); Chloride 102 mmol/L (98-107); Creatinine, Serum 2.16 mg/dL (0.55-1.02); EST Glomerular Filtration Rate 24 mL/min (>60); Est Glom Filt Rate - Afr Amer 29 mL/min (>60); Glucose 147 mg/dL (74-106); Potassium 3.9 mmol/L (3.5-5.1); Sodium Level 138 mmol/L (136-145)
[2024-04-15] MEDS: diazePAM 2 MG Tablet PO (04:16)
--- NOTE | 2024-04-15 06:02 | HP.PCM.HOS_ITS ---
[facility] - General General Date of Admission: 04/15/24 Date of Service: 04/15/24 Chief Complaint: fall. HPI Narrative WALLACE BAZAN, is a 73 F who presents with a fall this morning. Patient was getting up to go to the restroom and then just felt weak on her feet and then fell backwards. As she was falling, her upper back struck a wooden glider. Patient was unable to get up on her own and presented to the emergency room. They tried to get the patient up but she was unable to do so so the hospital service was contacted. Prior to this, patient has not been feeling well for the past few days, she complaining of sore throat, her oxygen, which started her on 3 L, was increased to 4-1/2 L, increasing shortness of breath and chills. Patient did have CT images of her chest and abdomen because of this fall and she was noted to have a 6.5 x 3.6 x 9.4 cm left posterior lateral abdominal wall fluid collection suggesting hematoma. Cells noted that patient be having pneumonia as well. Last week, patient saw Dr. Delgado who was concerned about heart failure for the patient and patient has been treated for heart failure with torsemide. She states that she has that lower extremity edema but is actually better than it has been. CAT scan also did not show pleural effusions. [facility] Medical History Melanoma High triglycerides Hearing problem Back problem Arthritis Lower extremity edema COVID-19 Osteoporosis Diabetes Secondary pulmonary arterial hypertension Muscle spasm Constipation Overactive bladder Gout Allergic rhinitis Osteoporosis Compression fracture of L1 vertebra Intractable low back pain Debility Venous insufficiency of both lower extremities Hyperuricemia GERD (gastroesophageal reflux disease) Morbid obesity Noncompliance with CPAP treatment Obstructive sleep apnea Chronic renal failure, stage 3 (moderate) Dysphagia Osteopenia Right bundle branch block (RBBB) Asthma Essential (primary) hypertension Paroxysmal atrial fibrillation Obesity (BMI 30-39.9) Pneumonia Lung abscess On home O2 Sarcoidosis Type 2 diabetes mellitus Chronic obstructive lung disease Hyperlipidemia Home Medications ?Medication ?Instructions ?Recorded ?Last Taken ?Type fluticasone propionate 50 2 spray NASAL DAILY PRN PRN 06/21/17 11/19/20 History mcg/actuation nasal Congestion spray,suspension febuxostat 40 mg tablet (Uloric) 40 mg PO DAILY gout 12/30/18 11/19/20 History fluticasone 500 mcg-salmeterol 50 1 inh inhalation BID SOB 07/17/20 11/19/20 History mcg/dose blistr powdr for inhalation (Advair Diskus) acetaminophen 650 mg 650 mg PO Q12H 02/08/21 Unknown History tablet,extended release (Tylenol Arthritis Pain) aspirin 81 mg tablet,delayed 81 mg PO DAILY #1 TAB 02/08/21 Unknown Rx release loratadine 10 mg tablet (Claritin) 10 mg PO DAILY Allergy 01/14/22 Unknown History mirabegron 50 mg tablet,extended 50 mg PO DAILY overactive bladder 01/14/22 Unknown History release 24 hr (Myrbetriq) tiotropium bromide 1.25 2 puff inhalation DAILY 01/14/22 Unknown History mcg/actuation mist for inhalation (Spiriva Respimat) fenofibrate nanocrystallized 145 145 mg PO DAILY Cholesterol 10/16/22 Unknown History mg tablet (Tricor) insulin glargine 100 unit/mL (3 38 unit subcut QPM DM 12/11/22 Unknown History mL) subcutaneous pen levalbuterol HCl 0.63 mg/3 mL 0.63 mg inhalation Q6H PRN wheeze 12/11/22 Unknown History solution for nebulization lidocaine 5 % topical patch 2 patch topical DAILY pain 12/11/22 Unknown History pen needle, diabetic 32 gauge x #400 ea 01/22/23 Unknown Rx (BD Ultra-Fine Sonam Pen Needle) montelukast 10 mg tablet 10 mg PO DAILY 02/22/23 Unknown History (Singulair) omeprazole 20 mg capsule,delayed 20 mg PO DAILY 03/03/23 Unknown History release tramadol 50 mg tablet 50 mg PO Q12H 03/03/23 Unknown History pantoprazole 40 mg tablet,delayed 40 mg PO DAILY GERD 05/07/23 Unknown History release Lactobacillus acidophilus 10 mg PO DAILY 06/16/23 Unknown History (Acidophilus capsule) budesonide 0.5 mg/2 mL suspension 0.5 mg inhalation BID PRN BREATHING 06/16/23 Unknown History for nebulization linaclotide 145 mcg capsule 145 mcg PO DAILY 06/16/23 Unknown History (Linzess) mecobalamin (vitamin B12) 1,000 1,000 mcg PO DAILY 06/16/23 Unknown History mcg chewable tablet sour scott extract 1,000 mg 1,200 mg PO DAILY 06/16/23 Unknown History capsule (Tart Scott Extract) albuterol sulfate 90 mcg/actuation 2 puff inhalation Q4H PRN sob #8.5 11/17/23 Unknown Rx aerosol inhaler grams torsemide 10 mg tablet 10 mg PO DAILY #30 tabs 11/17/23 Unknown Rx flash glucose sensor (FreeStyle #6 ea 01/18/24 Unknown Rx Garett 2 Sensor kit) insulin aspart U-100 100 unit/mL See Rx Instructions subcut TID 03/08/24 Unknown History (3 mL) subcutaneous pen (Novolog FlexPen U-100 Insulin aspart) diltiazem HCl 180 mg capsule,24 180 mg PO DAILY #90 caps 03/21/24 Unknown Rx hr,extended release (Tiazac) Allergy/AdvReac Type Severity Reaction Status Date / Time doxycycline Allergy Intermediate GI problems Verified 04/15/24 02:08 clindamycin Allergy Rash Verified 04/15/24 02:08 insulin detemir (From Allergy Rash Verified 04/15/24 02:08 Levemir U-100 Insulin) ciprofloxacin AdvReac Mild Upset Verified 04/15/24 02:08 Stomach amoxicillin trihydrate (From AdvReac Nausea Verified 04/15/24 02:08 Augmentin) potassium clavulanate (From AdvReac Nausea Verified 04/15/24 02:08 Augmentin) Family History Father Hypertension Colon cancer Cancer lung Mother Hypertension Heart disease Diabetes Other Hypercholesterolemia Melanoma Surgical History History of right and left heart catheterization (05/04/20) History of cholecystectomy History of laminectomy History of knee replacement procedure of left knee Social History Smoking Status: Former smoker how long ago did patient quit smokin years ago alcohol intake: never substance use type: does not use caffeine: Yes Type: coffee Number of servings: 2 additional social history: Uses aspirin. Does not use ibuprofen. JERRY Jensen Normally uses a walker but is able to navigate to the restroom on her own without a walker but was unable to do so today. All review of systems were negative except as mentioned above in the history of present illness and the other review of systems. Vital Signs Vital Signs Vital Signs: 04/15/24 02:08 04/15/24 02:13 04/15/24 04:08 Temperature 36.1 C L Temperature Source Temporal Pulse Rate 76 70 Respiratory Rate 19 H 18 Respiratory Effort Normal Non-Labored Respiratory Depth Normal Respiratory Pattern Normal Blood Pressure 122/59 H 149/61 H Blood Pressure Mean 80 90 Pulse Ox 93 94 99 Oxygen Delivery Method Nasal Cannula Nasal Cannula Nasal Cannula Oxygen Flow Rate (L/min) 4 4 4 04/15/24 05:34 Temperature 36.8 C Temperature Source Pulse Rate 68 Respiratory Rate 17 Respiratory Effort Respiratory Depth Respiratory Pattern Blood Pressure 152/58 H Blood Pressure Mean 89 Pulse Ox 97 Oxygen Delivery Method Oxygen Flow Rate (L/min) Physical Exam Const alert Constitutional Narrative: Uncomfortable. Nontoxic. HEENT normocephalic and head/scalp atraumatic HEENT Narrative: Mallampati 4. Lung the posterior soft palate, appear to be some erythema. Eyes Eyes Narrative: No icterus Neck Neck Narrative: Redundant neck tissue. No lymphadenopathy. Resp Resp Narrative: Limited due to short shallow breaths due to splinting. Otherwise clear. Cardio regular rate, regular rhythm, S1 normal heart sound and S2 normal heart sound GI normal to inspection, nondistended, normoactive bowel sounds, soft to palpation and non-distended GI Narrative: Patient does have prominent firmness over the left posterior flank. No ecchymosis appreciated. This area is also very tender to palpation. Extremity Extremity Narrative: Bilateral nonpitting, not tight lower extremity edema Skin Skin Narrative: No rashes or lesions Neuro moves all extremities Sensorium / Orientation: awake and alert Results Lab / Micro Data Attestation: I reviewed the patient's lab results. 04/15/24 02:30 04/15/24 02:30 Labs: Laboratory Results - last 24 hr 04/15/24 02:30: WBC 8.2, RBC 3.27 L, Hgb 9.9 L, Hct 31.5 L, MCV 96.3, MCH 30.3, MCHC 31.4 L, RDW Std Deviation 52.3 H, RDW Coeff of Jazzmine 14.8 H, Plt Count 234, MPV 10.1, Immature Gran % (Auto) 2.800 H, Neut % (Auto) 71.4 H, Lymph % (Auto) 10.8 L, [place] % (Auto) 12.4 H, Eos % (Auto) 1.6, Baso % (Auto) 1.0, Absolute Neuts (auto) 5.8, Absolute Lymphs (auto) 0.88, Nucleated RBC % 0, PT 14.5, INR 1.1, APTT 26.1, Sodium 138, Potassium 3.9, Chloride 102, Carbon Dioxide 30.0, Anion Gap 6, BUN 60 H, Creatinine 2.16 H, Est GFR (MDRD) Af Amer 29 L, Est GFR (MDRD) Non-Af 24 L, BUN/Creatinine Ratio 27.8 H, Glucose 147 H, Calcium 10.7 H Imaging Radiology Impression Chest CT 04/15/24 02:18 IMPRESSION: 1. No evidence of acute traumatic injury of the chest. 2. Irregular right upper lobe and right middle lobe airspace opacities which may represent pneumonia. Recommend follow-up CT in 4-6 weeks to ensure resolution/improvement and exclude neoplasm. 3. Small bilateral pleural effusions. 4. 6.5 x 3.6 x 9.4 cm left posterior lateral lower abdominal wall fluid collection most likely representing a hematoma, given history. Electronically Signed: Andry Evans DO at 3:50 EDT Reading Location ID and State: [facility] / [place] Tel , Service support , Abdomen/Pelvis CT 04/15/24 02:19 IMPRESSION: 1. No evidence of acute traumatic injury of the chest. 2. Irregular right upper lobe and right middle lobe airspace opacities which may represent pneumonia. Recommend follow-up CT in 4-6 weeks to ensure resolution/improvement and exclude neoplasm. 3. Small bilateral pleural effusions. 4. 6.5 x 3.6 x 9.4 cm left posterior lateral lower abdominal wall fluid collection most likely representing a hematoma, given history. Electronically Signed: Andyr Evans DO at 3:50 EDT , Assessment & Plan Assessment/Plan (1) Hematoma of abdominal wall: (2) Fall: (3) CHF exacerbation: PLAN: Plan Pneumonia, suspected pneumococcal * Patient has hazy infiltrates bilaterally but also more dense consolidations. * On patient had not been feeling well, feeling rundown couple days prior to presentation. * Plan is to check a viral studies, urinary antigens for strep and Legionella, sputum culture. Antibiotics will be with ceftriaxone and azithromycin. Pulmonary toilet. Guaifenesin. Acute on chronic heart failure with preserved ejection fraction * 2D echocardiogram from November 16, 2023 showed an EF of 55%. I do not feel that there is a need to repeat echocardiogram at this time. * Patient states that her lower extremity edema is actually improving. Though her CAT scan does show some pleural effusions. Suspect this pleural effusion or transudative underlying heart failure. * Plan is to continue with her torsemide but I will give her one-time dose of 40 mg of IV furosemide. Additionally, patient will be fluid restricted diet of 1.5 L/day. Daily weights. Left flank hematoma * Secondary to fall. No ecchymosis currently but I suspect that she will develop ecchymosis 1 to 2 days. * Plan is to hold aspirin and monitor hemoglobin. No need for transfusion at this time. Patient with exquisite pain Alles will continue with pain control with scheduled acetaminophen, as needed oxycodone. Lidoderm patch. Fall * Patient had not been feeling well for the past few days and her performance status at baseline is poor. Patient normally uses a walker though she states that she goes to the restroom often or better if she does not normally use a walker to cause her to be too weak to be able to manage on her own. * Plan: PT OT evaluate and treat. Anticipate the patient may require [facility] facility. Discussed with the patient and her . Patient is open to that possibility of going to a SNF. Diabetes mellitus type 2 * Insulin-dependent. Continue with her glargine and prandial insulin. Add sliding scale insulin. Obesity class III * Complicates care and recovery. * Weight loss advised. Chronic conditions * Paroxysmal atrial fibrillation: Continue with diltiazem. Not on anticoagulation. * Hyperlipidemia: Continue with fenofibrate. * GERD: Continue PPI VTE prophylaxis with SCDs. Holding off chemical prophylaxis given the large hematoma. CODE STATUS: Addressed with patient. Patient wished to be full code. Charges/Coding Visit Charges Inpatient E&M: 65778 Init Hosp L3
[2024-04-15] MEDS: Furosemide 40 MG/4 ML Vial IV (06:50)
[2024-04-15] MEDS: oxyCODONE 5 MG Tablet PO ×4 (06:50→20:37)
[2024-04-15] MEDS: Acetaminophen 500 MG Tablet 1000 MG PO ×3 (06:50→20:36)
[2024-04-15] MEDS: Ipratropium/Albuterol Sulfate 3 ML AMPUL.NEB INHALATION ×3 (07:11→19:34)
[2024-04-15] MEDS: Budesonide Respules 0.5 MG/2 ML AMPUL.NEB. INHALATION ×2 (07:11→19:34)
[2024-04-15] MEDS: Cyanocobalamin 500 MCG Tablet 1000 MCG PO (09:33)
[2024-04-15] MEDS: Pantoprazole Sodium 20 MG Tablet PO (09:33)
[2024-04-15] MEDS: Febuxostat 40 MG TABLET PO (09:34)
[2024-04-15] MEDS: Montelukast 10 MG Tablet PO (09:34)
[2024-04-15] MEDS: guaiFENesin 1,200 MG Tablet 1200 MG PO ×2 (09:34→20:35)
[2024-04-15] MEDS: Furosemide 20 MG Tablet PO (09:34)
[2024-04-15] MEDS: Fenofibrate 145 MG Tablet PO (09:34)
[2024-04-15] MEDS: dilTIAZem CD 180 MG Capsule PO (09:34)
[2024-04-15] MEDS: Vibegron 75 MG TABLET PO (09:35)
[2024-04-15] MEDS: levoFLOXacin IV 750 MG/150 ML BAG 100 MG IV (09:36)
[2024-04-15] MEDS: Lidocaine 5% Patch 2 PATCH TOPICAL (09:37)
[2024-04-15] MEDS: 0.9% Saline Lock 10 ML Syringe IV (09:46)
[2024-04-15] MEDS: 0.9% Normal Saline (250mL Bag) 250 ML 15 ML IV (09:46)
[2024-04-15] MEDS: Insulin Lispro 100 UNIT/ML INSULN.PEN 12 UNIT SC ×3 (09:47→16:50)
--- NOTE | 2024-04-15 11:21 | CASEMGMT ---
Social Work SW met w/pt in room, also present. SW reviewed w/pt and prior level of function and anticipated discharge plan. PCP: Dr. Oquendo Specialists: Dr. Ribeiro(nephrology), Dr. Delgado(pulmonology), Dr. Schroeder(cardiology), Dr. Stroud(GI), Dr. Sunshine(urology), Dr. Van(podiatry), Dr. Velazquez(endo), Dr. Delgado(ENT) and Dr. Medina(pain management) Insurance: [employer] Medicare Prescription Benefit: for Life LNOK: Spouse Willian Living Arrangements/Prior level of function: Pt lives w/ in a one story home, with three steps to enter. Pt has been having more difficulty getting in and out of the house recently, has difficulty w/stairs. Pt still able to complete ADLs in the home but as her is getting increasingly short of breath when ambulating around the house. In the past their daughter had helped with cleaning, but she is not helping at this time. also assists around the house. LW/POA: is POA, papers are not on the chart. SW asked to bring in the documents as able. DME: PT has a shower chair, hand held shower, grab bars, 2 rollators, hospital bed, nebulizer, pulse oximeter, glucose meter w/supplies, home O2 at 4.5 LPM, no through [employer]. SNF/HHC: Pt has been to TCU, and has had [facility] in the past Plan: Likely SNF. SW spoke w/pt and in regard to options at discharge. SW provided to a list from [facility] of [facility] facilities in network w/insurance, in pt's preferred geographic area, and complete w/quality and resource use data. Pt states the only facility other than [facility]CU she is familiar with is [facility]. SW explained will make a referral if this is the level of care needed. SW will follow up once pt has participated in PT/OT. SW will continue to follow. SYLWIA Estrada
[2024-04-15 11:35] LABS: Bedside Glucose 157 mg/dL (74-106)
--- NOTE | 2024-04-15 11:43 | NURSING ---
pt assisted to bsc, unable to get urine specimen. purewick put back in place and pt to reclining chair.
--- NOTE | 2024-04-15 11:49 | PCM.PN.HOSP ---
Reason for Visit Reason for Visit: Diagnoses Heart failure, unspecified (04/15/24) Contusion of abdominal wall, initial encounter (04/15/24) Unspecified fall, initial encounter (04/15/24) Objective Data Objective Data Vital Signs: Vital Signs Temp Pulse Resp BP Pulse Ox O2 Del Method O2 Flow Rate 97.8 F 76 18 158/37 H 96 Nasal Cannula 4 04/15/24 09:19 04/15/24 09:19 04/15/24 09:19 04/15/24 09:19 04/15/24 09:19 04/15/24 09:19 04/15/24 09:19 Oxygen Flow Rate (L/min) 4 Oxygen Delivery Method Nasal Cannula Weight: 220 lb 0.341 oz Body Mass Index (BMI) 44.4 Lab / Micro Data 04/15/24 02:30 04/15/24 02:30 Labs: Laboratory Results - last 24 hr 04/15/24 02:30: WBC 8.2, RBC 3.27 L, Hgb 9.9 L, Hct 31.5 L, MCV 96.3, MCH 30.3, MCHC 31.4 L, RDW Std Deviation 52.3 H, RDW Coeff of Jazzmine 14.8 H, Plt Count 234, MPV 10.1, Immature Gran % (Auto) 2.800 H, Neut % (Auto) 71.4 H, Lymph % (Auto) 10.8 L, [place] % (Auto) 12.4 H, Eos % (Auto) 1.6, Baso % (Auto) 1.0, Absolute Neuts (auto) 5.8, Absolute Lymphs (auto) 0.88, Nucleated RBC % 0, PT 14.5, INR 1.1, APTT 26.1, Sodium 138, Potassium 3.9, Chloride 102, Carbon Dioxide 30.0, Anion Gap 6, BUN 60 H, Creatinine 2.16 H, Est GFR (MDRD) Af Amer 29 L, Est GFR (MDRD) Non-Af 24 L, BUN/Creatinine Ratio 27.8 H, Glucose 147 H, Calcium 10.7 H Micro: Microbiology 04/15/24 07:20 Mucosa - Nose Coronavirus COVID-19 PCR - Final Radiography Diagnostic Testing: Radiology Impression Chest CT 04/15/24 02:18 IMPRESSION: 1. No evidence of acute traumatic injury of the chest. 2. Irregular right upper lobe and right middle lobe airspace opacities which may represent pneumonia. Recommend follow-up CT in 4-6 weeks to ensure resolution/improvement and exclude neoplasm. 3. Small bilateral pleural effusions. 4. 6.5 x 3.6 x 9.4 cm left posterior lateral lower abdominal wall fluid collection most likely representing a hematoma, given history. Electronically Signed: Andry EvansDO at 3:50 EDT , Abdomen/Pelvis CT 04/15/24 02:19 IMPRESSION: 1. No evidence of acute traumatic injury of the chest. 2. Irregular right upper lobe and right middle lobe airspace opacities which may represent pneumonia. Recommend follow-up CT in 4-6 weeks to ensure resolution/improvement and exclude neoplasm. 3. Small bilateral pleural effusions. 4. 6.5 x 3.6 x 9.4 cm left posterior lateral lower abdominal wall fluid collection most likely representing a hematoma, given history. Electronically Signed: Andry EvansDO at 3:50 EDT , Physical Exam Narrative Seen and examined. Patient has severe pain on the left lower chest at the site of fall with swelling. On Lidoderm patch. Admitted with fall. Had a bowel movement yesterday Physical General: Alert, Oriented x3, Cooperative HEENT: Atraumatic, PERRLA, EOMI, Normocephalic Oral: No Gingival or Mucosal Lesions/ Ulcerations Neck: Supple, No JVD, Negative Carotid Bruits Chest wall/Lungs: Air entry diminished in both lung bases more on the right side. Tenderness present on the left lower posterior lateral chest wall. Shallow breathing because of pain. No crepitation/rhonchi Cardiovascular: Regular rate, Regular Rhythm, Normal S1, Normal S2, No M/G/R Abdomen: Bowel Sounds Present, Soft, Non Tender, Non-Distended : No dysuria. No renal angle tenderness. No suprapubic tenderness. Extremities: No edema, Capillary Refill Less than 3 Seconds Skin: No rashes, No breakdown Musculoskeletal: No Tenderness to Palpation of Joints or Extremities Neurological: Cranial nerves II-XII grossly intact, DTR 2+/4. No acute focal neurological deficit. Psych/Mental Status: Flat affect. Assessment & Plan Assessment/Plan (1) Hematoma of abdominal wall: (2) Fall: (3) CHF exacerbation: PLAN: Plan 73-year-old female was brought to ED by EMS after fall at home, slipped and fell on the left side against her walker. Complain of severe pain on the left side of chest. Chronically on 4 L of home oxygen. No loss of consciousness or hitting head. Not on anticoagulant Pneumonia, suspected pneumococcal Patient has hazy infiltrates bilaterally but also more dense consolidations. On patient had not been feeling well, sore throat, short of breath increased oxygen from 3 L to 4 and half liters with chills.Respiratory panel and SARS-CoV-2 are negative. Antibiotics will be with ceftriaxone and azithromycin. Pulmonary toilet. Guaifenesin. Acute on chronic heart failure with preserved ejection fraction 2D echocardiogram from November 16, 2023 showed an EF of 55%. I do not feel that there is a need to repeat echocardiogram at this time. Patient states that her lower extremity edema is actually improving. Though her CAT scan does show some pleural effusions. Suspect this pleural effusion or transudative underlying heart failure. Lasix 40 more IV was given at time of addition. Continue furosemide 40 mg daily. Heart failure core measures including intake and output, fluid restriction less than 1500 mL, daily weight monitoring, kidney and electrolytes monitoring. Left flank hematoma Secondary to fall. No ecchymosis currently but I suspect that she will develop ecchymosis 1 to 2 days. Plan is to hold aspirin and monitor hemoglobin. No need for transfusion at this time. Patient with exquisite pain Alles will continue with pain control with scheduled acetaminophen, as needed oxycodone. Lidoderm patch. Fall Patient had not been feeling well for the past few days and her performance status at baseline is poor. Patient normally uses a walker though she states that she goes to the restroom often or better if she does not normally use a walker to cause her to be too weak to be able to manage on her own. Plan: PT OT evaluate and treat. Anticipate the patient may require residential facility. Discussed with the patient and her . Patient is open to that possibility of going to a SNF. Diabetes mellitus type 2 Insulin-dependent. Continue with her glargine and prandial insulin. Add sliding scale insulin. Obesity class III Complicates care and recovery. Weight loss advised. Chronic conditions Paroxysmal atrial fibrillation: Continue with diltiazem. Not on anticoagulation. Hyperlipidemia: Continue with fenofibrate. GERD: Continue PPI VTE prophylaxis with SCDs. Holding off chemical prophylaxis given the large hematoma. CODE STATUS: Addressed with patient. Patient wished to be full code. Charges/Coding Visit Charges Inpatient E&M: 58087 Subs Hosp L2
--- NOTE | 2024-04-15 12:15 | CASEMGMT ---
Social Work Pt has LW/POA, not on file. SW asked to bring in the documents as able. SYLWIA Estrada
[2024-04-15] MEDS: Insulin Lispro 100 UNIT/ML INSULN.PEN SC ×2 (12:28→16:51)
--- NOTE | 2024-04-15 13:45 | CASEMGMT ---
Addendum entered by Misa Vasquez 04/15/24 15:49: Social Work [facility] accepted pt, SW let them know to start precert. SW let pt know, she is agreeable. SW will continue to follow. It is anticipated pt will be here through the weekend, SW to follow up on Thursday. SYLWIA Estrada Original Note: Social Work Pt was unable to ambulate w/PT, OT eval still pending. SW did send a referral to [facility] for pt, will continue to follow. SYLWIA Estrada
[2024-04-15] MEDS: Morphine 2 MG/ML Syringe IV (13:49)
[2024-04-15] MEDS: Ondansetron 4 MG/2 ML Vial IV (13:51)
[2024-04-15] MEDS: Menthol/Lanolin/Calamine/Znox 113 GM Tube 1 APPLIC TOPICAL ×2 (13:51→20:34)
[2024-04-15] MEDS: Nystatin Powder 15gm Bottle 1 APPLIC TOPICAL ×2 (13:51→20:35)
--- NOTE | 2024-04-15 15:11 | CHAPLAIN ---
Type of Pastoral Visit _x__ Initial Visit ___ Follow-up Visit ___ On-call Visit ___ General Patient Visit ___ Spiritual Assessment ___ Family Conference ___ Bereavement ___ Rapid Response ___ Code Blue ___ Other (describe below) Pastoral Care Referral From _x__ Patient ___ Family ___ Nurse ___ Physician ___ Chlorinator ___ Equities Trader ___ Other (describe below) Sacrament/Intervention _x__ Active listening ___ Anointing ___ Zoroastrianism ___ Bereavement ___ Communion ___ Calista exploration ___ ___ Life review _x__ Prayer ___ Reconciliation ___ Sacrament of Sick _x__ Supportive presence ___ Wedding ___ Other (describe below) Pastoral Comments patient relates her health story and reliance on her in this time of life; pt states that she mostly wants someone to talk with and a prayer; both given
--- NOTE | 2024-04-15 15:42 | CASEMGMT ---
Pt screened with [facility] Pallitive Care Screening Tool and met criteria. SARA CM into pt room, discussed with pt the palliative program. Pt does not want to commit to this at this time. She is aware this can be ordered at a later time. She denies further questions.
--- NOTE | 2024-04-15 16:46 | CASEMGMT ---
Social Work Precert attained, pt can go to SNF on weekend if medically ready. SW will check w/physician tomorrow to see when pt may be ready for discharge. SYLWIA Estrada
[2024-04-15 17:28] LABS: Bedside Glucose 159 mg/dL (74-106)
[2024-04-15] MEDS: Insulin Glargine-YFGN 100 UNIT/ML Pen 38 UNIT SC (20:34)
[2024-04-15] MEDS: tiZANidine HCl 2 MG Tablet PO (20:37)
[2024-04-15 21:32] LABS: Bedside Glucose 132 mg/dL (74-106)
[2024-04-16] VITALS (9 sets, daily range): BP systolic 122–159; BP diastolic 51–77; PULSE 60–96; RESP 16–18; TEMP 36.6–36.9; O2SAT 93–99
[2024-04-16] MEDS: tiZANidine HCl 2 MG Tablet PO (05:15)
[2024-04-16] MEDS: Acetaminophen 500 MG Tablet 1000 MG PO ×3 (05:15→22:02)
[2024-04-16] MEDS: Nystatin Powder 15gm Bottle 1 APPLIC TOPICAL ×3 (05:15→22:03)
[2024-04-16 06:26] LABS: Basophil# 0.05 X10^3/uL; Basophil% 0.6 % (0-1); Eosinophil# 0.13 X10^3/uL; Eosinophils% 1.5 % (0-5); Hematocrit 30.8 % (37-47); Hemoglobin 9.6 g/dL (12.0-15.0); Lymphocyte % 10.6 % (19-41); Mean Corp Hgb Conc 31.2 g/dL (32-36); Mean Corpuscular Hgb 30.9 pg (27.0-32.0); Monocyte# 1.26 X10^3/uL; Monocyte% 14.8 % (0-10); NRBC Flagged by Analyzer 0 % (0-5); Neutrophil # 6.02 X10^3/uL (2.7-7.7); Neutrophil % 70.6 % (47-70); Platelet Count 230 K/mm3 (150-450); RBC Distribution Width CV 15.3 % (11.6-14.6); RBC Distribution Width SD 54.7 fl (35.1-43.9); Red Blood Count 3.11 M/mm3 (4.2-5.4); White Blood Count 8.5 K/mm3 (4.4-11.0)
[2024-04-16 06:48] LABS: Anion Gap 4 (5-15); BUN 55 mg/dL (7-18); BUN/Creat Ratio 25.5 RATIO (10-20); Calcium,Total 10.6 mg/dL (8.5-10.1); Chloride 101 mmol/L (98-107); Creatinine, Serum 2.16 mg/dL (0.55-1.02); EST Glomerular Filtration Rate 24 mL/min (>60); Est Glom Filt Rate - Afr Amer 29 mL/min (>60); Estimated Creatinine Clearance 24.62 ml/min; Glucose 124 mg/dL (74-106); Potassium 4.1 mmol/L (3.5-5.1); Sodium Level 141 mmol/L (136-145)
[2024-04-16] MEDS: Ipratropium/Albuterol Sulfate 3 ML AMPUL.NEB INHALATION ×2 (06:58→20:25)
--- NOTE | 2024-04-16 08:44 | CASEMGMT ---
Social Work SW spoke w/physician, pt will not be ready this weekend for discharge. Tom updated [facility] in [facility]. SYLWIA Estrada
[2024-04-16] MEDS: Insulin Lispro 100 UNIT/ML INSULN.PEN 12 UNIT SC ×2 (08:54→17:21)
[2024-04-16] MEDS: Lidocaine 5% Patch 2 PATCH TOPICAL (08:56)
[2024-04-16] MEDS: Linacolotide 145 MCG CAPSULE PO (08:56)
[2024-04-16] MEDS: Loratadine 10 MG Tablet PO (08:57)
[2024-04-16] MEDS: Febuxostat 40 MG TABLET PO (08:57)
[2024-04-16] MEDS: Pantoprazole Sodium 20 MG Tablet PO (08:58)
[2024-04-16] MEDS: dilTIAZem CD 180 MG Capsule PO (08:59)
[2024-04-16] MEDS: Furosemide 40 MG Tablet PO (08:59)
[2024-04-16] MEDS: guaiFENesin 1,200 MG Tablet 1200 MG PO ×2 (09:00→22:03)
[2024-04-16] MEDS: Cyanocobalamin 500 MCG Tablet 1000 MCG PO (09:03)
--- NOTE | 2024-04-16 09:53 | PN.HOSP_ITS ---
Reason for Visit Reason for Visit: Diagnoses Heart failure, unspecified (04/15/24) Contusion of abdominal wall, initial encounter (04/15/24) Unspecified fall, initial encounter (04/15/24) Objective Data Objective Data Vital Signs: Vital Signs Temp Pulse Resp BP Pulse Ox O2 Del Method O2 Flow Rate 98.4 F 74 18 148/51 H 94 Nasal Cannula 4 04/16/24 08:58 04/16/24 08:58 04/16/24 08:58 04/16/24 08:58 04/16/24 08:58 04/16/24 08:58 04/16/24 08:58 Oxygen Flow Rate (L/min) 4 Oxygen Delivery Method Nasal Cannula Weight: 220 lb 0.341 oz Body Mass Index (BMI) 44.4 Intake & Output: Intake and Output for Last 24 Hours 04/14/24 04/15/24 04/16/24 23:59 23:59 23:59 Intake Total 150.25 / 450.25 500 / 500 Output Total 850 / 1100 600 / 600 Balance -699.75 / -649.75 -100 / -100 Lab / Micro Data 04/16/24 05:35 04/16/24 05:35 Labs: Laboratory Results - last 24 hr 04/15/24 11:14: POC Glucose 157 H 04/15/24 16:46: POC Glucose 159 H 04/15/24 20:33: POC Glucose 132 H 04/16/24 05:35: WBC 8.5, RBC 3.11 L, Hgb 9.6 L, Hct 30.8 L, MCV 99.0, MCH 30.9, MCHC 31.2 L, RDW Std Deviation 54.7 H, RDW Coeff of Jazzmine 15.3 H, Plt Count 230, MPV 10.0, Immature Gran % (Auto) 1.900 H, Neut % (Auto) 70.6 H, Lymph % (Auto) 10.6 L, Elliott % (Auto) 14.8 H, Eos % (Auto) 1.5, Baso % (Auto) 0.6, Absolute Neuts (auto) 6.0, Absolute Lymphs (auto) 0.90, Nucleated RBC % 0, Sodium 141, Potassium 4.1, Chloride 101, Carbon Dioxide 36.0 H, Anion Gap 4 L, BUN 55 H, C reatinine 2.16 H, Estim Creat Clear Calc 24.62, Est GFR (MDRD) Af Amer 29 L, Est GFR (MDRD) Non-Af 24 L, BUN/Creatinine Ratio 25.5 H, Glucose 124 H, Calcium 10.6 H Micro: Microbiology 04/15/24 12:30 Urine, Random Legionella Antigen - Final 04/15/24 12:30 Urine, Random Streptococcus pneumoniae Antigen (M - Final 04/15/24 07:20 Mucosa - Nose Coronavirus COVID-19 PCR - Final 04/15/24 07:20 Mucosa - Nose Respiratory Panel (PCR) - Final Physical Exam Narrative Seen and examined. Patient has severe pain on the left lower chest at the site of fall with swelling. On Lidoderm patch. Admitted with fall. Had a bowel movement yesterday Physical General: Alert, Oriented x3, Cooperative HEENT: Atraumatic, PERRLA, EOMI, Normocephalic Oral: No Gingival or Mucosal Lesions/ Ulcerations Neck: Supple, No JVD, Negative Carotid Bruits Chest wall/Lungs: Air entry diminished in both lung bases more on the right side. Tenderness present on the left lower posterior lateral chest wall. Shallow breathing because of pain. No crepitation/rhonchi Cardiovascular: Regular rate, Regular Rhythm, Normal S1, Normal S2, No M/G/R Abdomen: Bowel Sounds Present, Soft, Non Tender, Non-Distended : No dysuria. No renal angle tenderness. No suprapubic tenderness. Extremities: No edema, Capillary Refill Less than 3 Seconds Skin: No rashes, No breakdown Musculoskeletal: No Tenderness to Palpation of Joints or Extremities Neurological: Cranial nerves II-XII grossly intact, DTR 2+/4. No acute focal neurological deficit. Psych/Mental Status: Flat affect. Assessment & Plan Assessment/Plan (1) Hematoma of abdominal wall: (2) Fall: (3) CHF exacerbation: PLAN: Plan 73-year-old female was brought to ED by EMS after fall at home, slipped and fell on the left side against her walker. Complain of severe pain on the left side of chest. Chronically on 4 L of home oxygen. No loss of consciousness or hitting head. Not on anticoagulant Pneumonia, suspected pneumococcal * Patient has hazy infiltrates bilaterally but also more dense consolidations. * On patient had not been feeling well, sore throat, short of breath increased oxygen from 3 L to 4 and half liters with chills.Respiratory panel and SARS-CoV-2 are negative. * Antibiotics will be with ceftriaxone and azithromycin. Pulmonary toilet. Guaifenesin. Acute on chronic heart failure with preserved ejection fraction * 2D echocardiogram from November 16, 2023 showed an EF of 55%. I do not feel that there is a need to repeat echocardiogram at this time. * Patient states that her lower extremity edema is actually improving. Though her CAT scan does show some pleural effusions. Suspect this pleural effusion or transudative underlying heart failure. * Lasix 40 more IV was given at time of addition. Continue furosemide 40 mg daily. Heart failure core measures including intake and output, fluid restriction less than 1500 mL, daily weight monitoring, kidney and electrolytes monitoring. Left flank hematoma * Secondary to fall. No ecchymosis currently but I suspect that she will develop ecchymosis 1 to 2 days. * Plan is to hold aspirin and monitor hemoglobin. No need for transfusion at this time. Patient with exquisite pain Alles will continue with pain control with scheduled acetaminophen, as needed oxycodone. Lidoderm patch. Fall * Patient had not been feeling well for the past few days and her performance status at baseline is poor. Patient normally uses a walker though she states that she goes to the restroom often or better if she does not normally use a walker to cause her to be too weak to be able to manage on her own. * Plan: PT OT evaluate and treat. Anticipate the patient may require long-term facility. Discussed with the patient and her . Patient is open to that possibility of going to a SNF. Diabetes mellitus type 2 * Insulin-dependent. Continue with her glargine and prandial insulin. Add sliding scale insulin. Obesity class III * Complicates care and recovery. * Weight loss advised. Chronic conditions * Paroxysmal atrial fibrillation: Continue with diltiazem. Not on anticoagulation. * Hyperlipidemia: Continue with fenofibrate. * GERD: Continue PPI VTE prophylaxis with SCDs. Holding off chemical prophylaxis given the large hematoma. CODE STATUS: Addressed with patient. Patient wished to be full code.
[2024-04-16 12:06] LABS: Bedside Glucose 134 mg/dL (74-106)
--- NOTE | 2024-04-16 13:41 | CASEMGMT ---
Social Work SW did let pt and know that we have precert, however physician states pt not leaving this weekend. SW will follow up w/them on Thursday. Both state understanding. SYLWIA Estrada
[2024-04-16] MEDS: Menthol/Lanolin/Calamine/Znox 113 GM Tube 1 APPLIC TOPICAL ×2 (14:38→22:03)
[2024-04-16 16:16] LABS: Bedside Glucose 168 mg/dL (74-106)
[2024-04-16] MEDS: Insulin Lispro 100 UNIT/ML INSULN.PEN SC (17:22)
[2024-04-16 20:53] LABS: Bedside Glucose 166 mg/dL (74-106)
[2024-04-16] MEDS: Insulin Glargine-YFGN 100 UNIT/ML Pen 38 UNIT SC (22:03)
[2024-04-16 22:30] LABS: Bedside Glucose 180 mg/dL (74-106)
[2024-04-16] MEDS: oxyCODONE 5 MG Tablet PO (23:50)
[2024-04-17] VITALS (7 sets, daily range): BP systolic 129–150; BP diastolic 53–85; PULSE 72–90; RESP 16–26; TEMP 36.6–37; O2SAT 92–95; BMI 44.7
[2024-04-17] MEDS: Acetaminophen 500 MG Tablet 1000 MG PO ×3 (05:16→20:46)
[2024-04-17] MEDS: Nystatin Powder 15gm Bottle 1 APPLIC TOPICAL ×3 (05:17→20:31)
[2024-04-17] MEDS: Menthol/Lanolin/Calamine/Znox 113 GM Tube 1 APPLIC TOPICAL ×3 (05:17→20:31)
[2024-04-17] MEDS: Ipratropium/Albuterol Sulfate 3 ML AMPUL.NEB INHALATION ×3 (07:10→21:06)
[2024-04-17] MEDS: Budesonide Respules 0.5 MG/2 ML AMPUL.NEB. INHALATION (07:11)
[2024-04-17] MEDS: Insulin Lispro 100 UNIT/ML INSULN.PEN SC ×2 (08:03→16:48)
[2024-04-17] MEDS: Insulin Lispro 100 UNIT/ML INSULN.PEN 12 UNIT SC ×2 (08:03→16:47)
[2024-04-17] MEDS: Lidocaine 5% Patch 2 PATCH TOPICAL (08:04)
[2024-04-17] MEDS: guaiFENesin 1,200 MG Tablet 1200 MG PO ×2 (08:05→20:38)
[2024-04-17] MEDS: Pantoprazole Sodium 20 MG Tablet PO (08:06)
[2024-04-17] MEDS: Vibegron 75 MG TABLET PO (08:06)
[2024-04-17] MEDS: Febuxostat 40 MG TABLET PO (08:06)
[2024-04-17] MEDS: Cyanocobalamin 500 MCG Tablet 1000 MCG PO (08:07)
[2024-04-17] MEDS: Fenofibrate 145 MG Tablet PO (08:07)
[2024-04-17] MEDS: Montelukast 10 MG Tablet PO (08:07)
[2024-04-17] MEDS: Linacolotide 145 MCG CAPSULE PO (08:08)
[2024-04-17] MEDS: dilTIAZem CD 180 MG Capsule PO (08:08)
[2024-04-17] MEDS: Furosemide 40 MG Tablet PO (08:08)
[2024-04-17] MEDS: levoFLOXacin IV 750 MG/150 ML BAG 100 MG IV (08:26)
[2024-04-17 09:10] LABS: Bedside Glucose 160 mg/dL (74-106)
--- NOTE | 2024-04-17 10:32 | PCM.PN.HOSP ---
Reason for Visit Reason for Visit: Diagnoses Heart failure, unspecified (04/15/24) Contusion of abdominal wall, initial encounter (04/15/24) Unspecified fall, initial encounter (04/15/24) Objective Data Objective Data Vital Signs: Vital Signs Temp Pulse Resp BP Pulse Ox O2 Del Method O2 Flow Rate 97.8 F 84 24 H 150/85 H 95 Nasal Cannula 4 04/17/24 02:34 04/17/24 07:10 04/17/24 07:10 04/17/24 02:34 04/17/24 07:10 04/17/24 10:21 04/17/24 10:21 Oxygen Flow Rate (L/min) 4 Oxygen Delivery Method Nasal Cannula Weight: 222 lb 0.088 oz Body Mass Index (BMI) 44.7 Intake & Output: Intake and Output for Last 24 Hours 04/15/24 04/16/24 04/17/24 23:59 23:59 23:59 Intake Total 150.25 / 450.25 750 / 750 150 / 150 Output Total 850 / 1100 1000 / 1250 800 / 800 Balance -699.75 / -649.75 -250 / -500 -650 / -650 Lab / Micro Data 04/16/24 05:35 04/16/24 05:35 Labs: Laboratory Results - last 24 hr 04/16/24 11:48: POC Glucose 134 H 04/16/24 15:56: POC Glucose 168 H 04/16/24 20:28: POC Glucose 166 H 04/16/24 22:01: POC Glucose 180 H 04/17/24 08:00: POC Glucose 160 H Micro: Microbiology 04/15/24 08:00 Blood Culture (Wb) - Arm Left Blood Culture - Preliminary No growth in 48 hours. 04/15/24 07:55 Blood Culture (Wb) - Arm Right Blood Culture - Preliminary No growth in 48 hours. 04/15/24 12:30 Urine, Random Legionella Antigen - Final 04/15/24 12:30 Urine, Random Streptococcus pneumoniae Antigen (M - Final 04/15/24 07:20 Mucosa - Nose Coronavirus COVID-19 PCR - Final 04/15/24 07:20 Mucosa - Nose Respiratory Panel (PCR) - Final Physical Exam Narrative Seen and examined. Patient has severe pain on the left lower chest at the site of fall with swelling. On Lidoderm patch. Admitted with fall. Had bowel movement a day before yesterday. Physical General: Alert, Oriented x3, Cooperative HEENT: Atraumatic, PERRLA, EOMI, Normocephalic Oral: No Gingival or Mucosal Lesions/ Ulcerations Neck: Supple, No JVD, Negative Carotid Bruits Chest wall/Lungs: Air entry diminished in both lung bases more on the right side. Tenderness present on the left lower posterior lateral chest wall. Shallow breathing because of pain. No crepitation/rhonchi Cardiovascular: Regular rate, Regular Rhythm, Normal S1, Normal S2, No M/G/R Abdomen: Bowel Sounds Present, Soft, Non Tender, Non-Distended : No dysuria. No renal angle tenderness. No suprapubic tenderness. Extremities: No edema, Capillary Refill Less than 3 Seconds Skin: Has mild bruise over the knee. Musculoskeletal: No Tenderness to Palpation of Joints or Extremities Neurological: Cranial nerves II-XII grossly intact, DTR 2+/4. No acute focal neurological deficit. Psych/Mental Status: Flat affect. Assessment & Plan Assessment/Plan (1) Hematoma of abdominal wall: (2) Fall: (3) CHF exacerbation: PLAN: Plan 73-year-old female was brought to ED by EMS after fall at home, slipped and fell on the left side against her walker. Complain of severe pain on the left side of chest. Chronically on 4 L of home oxygen. No loss of consciousness or hitting head. Not on anticoagulant Pneumonia, suspected pneumococcal Patient has hazy infiltrates bilaterally but also more dense consolidations. On patient had not been feeling well, sore throat, short of breath increased oxygen from 3 L to 4 and half liters with chills.Respiratory panel and SARS-CoV-2 are negative. Patient on antibiotic levofloxacin along with guaifenesin. Incentive spirometry and Pep ordered. 04/17: Urinary antigens are negative. Blood cultures negative for more than 48 hours. Respiratory panel negative. Acute on chronic heart failure with preserved ejection fraction 2D echocardiogram from November 16, 2023 showed an EF of 55%. I do not feel that there is a need to repeat echocardiogram at this time. Patient states that her lower extremity edema is actually improving. Though her CAT scan does show some pleural effusions. Suspect this pleural effusion or transudative underlying heart failure. Lasix 40 more IV was given at time of addition. Continue furosemide 40 mg daily. Heart failure core measures including intake and output, fluid restriction less than 1500 mL, daily weight monitoring, kidney and electrolytes monitoring. Hold Lasix until lab is available. Left flank hematoma Secondary to fall. No ecchymosis currently but I suspect that she will develop ecchymosis 1 to 2 days. Plan is to hold aspirin and monitor hemoglobin. No need for transfusion at this time. Patient with exquisite pain Alles will continue with pain control with scheduled acetaminophen, as needed oxycodone. Lidoderm patch. 04/17:. H&H 9.6/30 weight H&H 9.6/30.8%. Fall Patient had not been feeling well for the past few days and her performance status at baseline is poor. Patient normally uses a walker though she states that she goes to the restroom often or better if she does not normally use a walker to cause her to be too weak to be able to manage on her own. Plan: PT OT evaluate and treat. Anticipate the patient may require prison facility. Discussed with the patient and her . Patient is open to that possibility of going to a SNF. Diabetes mellitus type 2 with diabetic nephropathy: Insulin-dependent. Continue with her glargine and prandial insulin. Add sliding scale insulin. 04/17: CKD stage IV: Her baseline creatinine is 1.98 on 04/11/2024. Gradually creatinine increasing since February 2023. Was admitted with creatinine clearance 24.62,Creatinine 2.16. Hold Lasix. Monitor kidney function Obesity class III Complicates care and recovery. Weight loss advised. Chronic conditions Paroxysmal atrial fibrillation: Continue with diltiazem. Not on anticoagulation. Hyperlipidemia: Continue with fenofibrate. GERD: Continue PPI VTE prophylaxis with SCDs. Holding off chemical prophylaxis given the large hematoma. CODE STATUS: Addressed with patient. Patient wished to be full code. Plan of discharge possible SNF. Charges/Coding Visit Charges Inpatient E&M: 78171 Subs Hosp L2
[2024-04-17] MEDS: Bisacodyl 5 MG Tablet 10 MG PO ×2 (11:39→20:31)
[2024-04-17] MEDS: Polyethylene Glycol 3350 17 GM PACKET PO ×2 (11:39→20:38)
[2024-04-17 11:45] LABS: Absolute Lymphocyte Count 0.83 X10^3/uL (0.83-4.51); Absolute Neutrophil Count 7.6 X10^3/uL (2.0-7.7); Basophil# 0.03 X10^3/uL; Basophil% 0.3 % (0-1); Hematocrit 28.9 % (37-47); Hemoglobin 9.2 g/dL (12.0-15.0); Lymphocyte # 0.83 X10^3/ul (0.83-4.51); Lymphocyte % 8.2 % (19-41); Mean Corp Hgb Conc 31.8 g/dL (32-36); Mean Corpuscular Hgb 31.1 pg (27.0-32.0); Mean Corpuscular Volume 97.6 fL (81-99); Monocyte% 13.9 % (0-10); NRBC Flagged by Analyzer 0 % (0-5); Neutrophil # 7.58 X10^3/uL (2.7-7.7); Neutrophil % 75.3 % (47-70); Platelet Count 247 K/mm3 (150-450); RBC Distribution Width CV 15.4 % (11.6-14.6); RBC Distribution Width SD 54.8 fl (35.1-43.9); Red Blood Count 2.96 M/mm3 (4.2-5.4); White Blood Count 10.1 K/mm3 (4.4-11.0)
[2024-04-17 12:00] LABS: Anion Gap 7 (5-15); BUN 69 mg/dL (7-18); BUN/Creat Ratio 24.1 RATIO (10-20); Calcium,Total 10.3 mg/dL (8.5-10.1); Chloride 98 mmol/L (98-107); Creatinine, Serum 2.86 mg/dL (0.55-1.02); EST Glomerular Filtration Rate 17 mL/min (>60); Est Glom Filt Rate - Afr Amer 21 mL/min (>60); Estimated Creatinine Clearance 18.69 ml/min; Glucose 164 mg/dL (74-106); Potassium 4.9 mmol/L (3.5-5.1); Sodium Level 137 mmol/L (136-145)
[2024-04-17 12:30] LABS: Bedside Glucose 136 mg/dL (74-106)
[2024-04-17] MEDS: oxyCODONE 5 MG Tablet PO ×2 (12:45→20:46)
[2024-04-17] MEDS: tiZANidine HCl 2 MG Tablet PO (17:50)
[2024-04-17 18:01] LABS: Bedside Glucose 164 mg/dL (74-106)
--- NOTE | 2024-04-17 19:00 | NURSING ---
Pt only voided 100cc. this rn bladder scanned pt for 8cc. will notify doctor.
[2024-04-17] MEDS: Bisacodyl 10 MG Suppository RC (20:31)
[2024-04-17] MEDS: Lactated Ringers 1,000 ML 999 ML IV (20:31)
[2024-04-17] MEDS: Senna/Docusate Sodium 1 Tablet 2 TABLET PO (20:39)
[2024-04-17] MEDS: 0.9% Saline Lock 10 ML Syringe IV (20:47)
[2024-04-17] MEDS: Insulin Glargine-YFGN 100 UNIT/ML Pen 38 UNIT SC (21:43)
[2024-04-17 22:05] LABS: Bedside Glucose 137 mg/dL (74-106)
[2024-04-18 02:30] VITALS: BP 109/54; PULSE 82; RESP 18; TEMP 36.6; O2SAT 96
[2024-04-18 02:33] VITALS: PULSE 77; RESP 16; O2SAT 93
[2024-04-18] MEDS: Albuterol 2.5 MG/3 ML VIAL.NEB. INHALATION (02:33)
[2024-04-18] MEDS: Nystatin Powder 15gm Bottle 1 APPLIC TOPICAL (05:27)
[2024-04-18] MEDS: Menthol/Lanolin/Calamine/Znox 113 GM Tube 1 APPLIC TOPICAL (05:27)
[2024-04-18] MEDS: Acetaminophen 500 MG Tablet 1000 MG PO (05:27)
[2024-04-18 05:53] VITALS: BMI 45.4
[2024-04-18 05:56] LABS: Absolute Lymphocyte Count 1.02 X10^3/uL (0.83-4.51); Absolute Neutrophil Count 7.8 X10^3/uL (2.0-7.7); Basophil# 0.04 X10^3/uL; Basophil% 0.4 % (0-1); Eosinophil# 0.12 X10^3/uL; Eosinophils% 1.1 % (0-5); Hematocrit 28.4 % (37-47); Hemoglobin 8.8 g/dL (12.0-15.0); Lymphocyte # 1.02 X10^3/ul (0.83-4.51); Lymphocyte % 9.8 % (19-41); Mean Corpuscular Hgb 30.3 pg (27.0-32.0); Mean Corpuscular Volume 97.9 fL (81-99); Mean Platelet Vol. 10.1 fl (6.2-12.0); Monocyte# 1.34 X10^3/uL; Monocyte% 12.8 % (0-10); NRBC Flagged by Analyzer 0 % (0-5); Neutrophil # 7.81 X10^3/uL (2.7-7.7); Neutrophil % 74.7 % (47-70); Platelet Count 252 K/mm3 (150-450); RBC Distribution Width CV 15.4 % (11.6-14.6); RBC Distribution Width SD 54.5 fl (35.1-43.9); White Blood Count 10.5 K/mm3 (4.4-11.0)
[2024-04-18 06:37] VITALS: PULSE 100; RESP 16; O2SAT 92
[2024-04-18] MEDS: Ipratropium/Albuterol Sulfate 3 ML AMPUL.NEB INHALATION (06:39)
[2024-04-18] MEDS: Budesonide Respules 0.5 MG/2 ML AMPUL.NEB. INHALATION (06:39)
[2024-04-18 06:51] LABS: Anion Gap 7 (5-15); BUN 70 mg/dL (7-18); Calcium,Total 10.6 mg/dL (8.5-10.1); Chloride 98 mmol/L (98-107); Creatinine, Serum 2.59 mg/dL (0.55-1.02); EST Glomerular Filtration Rate 19 mL/min (>60); Est Glom Filt Rate - Afr Amer 23 mL/min (>60); Estimated Creatinine Clearance 20.83 ml/min; Glucose 143 mg/dL (74-106); Potassium 4.5 mmol/L (3.5-5.1); Sodium Level 136 mmol/L (136-145)
--- NOTE | 2024-04-18 07:56 | PN.HOSP_ITS ---
Reason for Visit Reason for Visit: Diagnoses Heart failure, unspecified (04/15/24) Contusion of abdominal wall, initial encounter (04/15/24) Unspecified fall, initial encounter (04/15/24) Subjective Subjective Patient is a 73-year-old lady with history of chronic hypoxic respiratory failure on 4 L of oxygen who slipped and fell presented to the emergency department. Workup did reveal bilateral patchy infiltrates consistent with pneumonia admitted to regular nursing floor for further management Objective Data Objective Data Vital Signs: Vital Signs Temp Pulse Resp BP Pulse Ox O2 Del Method O2 Flow Rate 97.8 F 100 16 109/54 L 92 Nasal Cannula 4 04/18/24 02:30 04/18/24 06:37 04/18/24 06:37 04/18/24 02:30 04/18/24 06:37 04/18/24 06:37 04/18/24 06:37 Oxygen Flow Rate (L/min) 4 Oxygen Delivery Method Nasal Cannula Weight: 102.3 kg Body Mass Index (BMI) 45.4 Intake & Output: Intake and Output for Last 24 Hours 04/16/24 04/17/24 04/18/24 23:59 23:59 23:59 Intake Total 750 / 750 1934.25 / 1934.25 Output Total 1000 / 1250 1000 / 1300 550 / 550 Balance -250 / -500 934.25 / 634.25 -550 / -550 Lab / Micro Data 04/18/24 04:57 04/18/24 04:57 Labs: Laboratory Results - last 24 hr 04/17/24 08:00: POC Glucose 160 H 04/17/24 11:30: WBC 10.1, RBC 2.96 L, Hgb 9.2 L, Hct 28.9 L, MCV 97.6, MCH 31.1, MCHC 31.8 L, RDW Std Deviation 54.8 H, RDW Coeff of Jazzmine 15.4 H, Plt Count 247, MPV 10.0, Immature Gran % (Auto) 1.300 H, Neut % (Auto) 75.3 H, Lymph % (Auto) 8.2 L, [place] % (Auto) 13.9 H, Eos % (Auto) 1.0, Baso % (Auto) 0.3, Absolute Neuts (auto) 7.6, Absolute Lymphs (auto) 0.83, Nucleated RBC % 0, Sodium 137, Potassium 4.9, Chloride 98, Carbon Dioxide 32.0, Anion Gap 7, BUN 69 H, C reatinine 2.86 H, Estim Creat Clear Calc 18.69, Est GFR (MDRD) Af Amer 21 L, Est GFR (MDRD) Non-Af 17 L, BUN/Creatinine Ratio 24.1 H, Glucose 164 H, Calcium 10.3 H 04/17/24 11:44: POC Glucose 136 H 04/17/24 16:44: POC Glucose 164 H 04/17/24 21:42: POC Glucose 137 H 04/18/24 04:57: WBC 10.5, RBC 2.90 L, Hgb 8.8 L, Hct 28.4 L, MCV 97.9, MCH 30.3, MCHC 31.0 L, RDW Std Deviation 54.5 H, RDW Coeff of Jazzmine 15.4 H, Plt Count 252, MPV 10.1, Immature Gran % (Auto) 1.200 H, Neut % (Auto) 74.7 H, Lymph % (Auto) 9.8 L, [place] % (Auto) 12.8 H, Eos % (Auto) 1.1, Baso % (Auto) 0.4, Absolute Neuts (auto) 7.8 H, Absolute Lymphs (auto) 1.02, Nucleated RBC % 0, Sodium 136, Potassium 4.5, Chloride 98, Carbon Dioxide 31.0, Anion Gap 7, BUN 70 H, C reatinine 2.59 H, Estim Creat Clear Calc 20.83, Est GFR (MDRD) Af Amer 23 L, Est GFR (MDRD) Non-Af 19 L, BUN/Creatinine Ratio 27.0 H, Glucose 143 H, Calcium 10.6 H Micro: Microbiology 04/15/24 08:00 Blood Culture (Wb) - Arm Left Blood Culture - Preliminary No growth in 48 hours. 04/15/24 07:55 Blood Culture (Wb) - Arm Right Blood Culture - Preliminary No growth in 48 hours. 04/15/24 12:30 Urine, Random Legionella Antigen - Final 04/15/24 12:30 Urine, Random Streptococcus pneumoniae Antigen (M - Final 04/15/24 07:20 Mucosa - Nose Coronavirus COVID-19 PCR - Final 04/15/24 07:20 Mucosa - Nose Respiratory Panel (PCR) - Final Physical Exam Narrative GENERAL: cooperative HEENT: Atraumatic; normocephalic EYES; Anicteric, Normal Conjunctiva NECK; supple, normal thyroid, RESPIRATORY: Diminished to auscultation CARDIOVASCULAR: Regular S1 S2, GI: soft, normoactive bowel sounds, : No Renal angle tenderness; EXTREMITIES: No edema, no clubbing, MUSCULOSKELETAL: no muscle wasting NEURO: Awake; no lateralizing signs. SKIN: Large hematoma on the left flank PSYCH; Flat affect Assessment & Plan Assessment/Plan (1) Hematoma of abdominal wall: (2) Fall: (3) CHF exacerbation: PLAN: Plan Patient is a 73-year-old lady with history of chronic hypoxic respiratory failure on 4 L of oxygen who slipped and fell presented to the emergency department. Workup did reveal bilateral patchy infiltrates consistent with pneumonia admitted to regular nursing floor for further management 1. Pneumonia With suspected streptococcal pneumonia. Imaging studies demonstrated bilateral hazy infiltrates. Started on Levaquin cultures sent so far negative to date 2. Acute on chronic congestive heart failure with preserved ejection fraction ? Echo from 11/16/2023 demonstrated EF of 53%. Patient was placed on strict input and output, daily weight, fluid restriction low-sodium diet as well as diuretic therapy has responded to treatment 3. Left flank hematoma ? Following patient for requested for PT OT 4. Anemia - Secondary to chronic disorder monitoring H&H and transfuse if patient becomes symptomatic or hemoglobin falls below 7 5. Chronic hypoxic respiratory failure ? Patient is on 4 L of oxygen at baseline 6. Class III obesity with BMI of 45.6 ? Complicating care weight loss advised 7. 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 Patient oral hypoglycemic agent held please on long-acting insulin in addition to sliding scale coverage 8. Chronic kidney disease stage IV ? Kidney function at baseline 9. Paroxysmal A-fib ? Rate control with diltiazem not on systemic anticoagulation due to significant risk for falls 10. Dyslipidemia ? Patient is on fenofibrate 11. Hypertension - Blood pressure controlled, home medications continued with dose adjustment as needed 12. GERD ? On PPI 13. Physical deconditioning - Requested for PT OT eval and social services specialist to assist with discharge planning 14. DVT prophylaxis ? Chemoprophylaxis was held given her large flank hematoma Time spent in the patient's overall evaluation,decision-making process, review of diagnostic data, adjustment of management, discussion with other providers, nursing nursing and ancillary staff involved in patient's care documentation, 38 Minutes
[2024-04-18 08:11] VITALS: BP 113/63; PULSE 89; RESP 16; TEMP 36.6; O2SAT 93
[2024-04-18 08:24] LABS: Bedside Glucose 139 mg/dL (74-106)
[2024-04-18] MEDS: Insulin Lispro 100 UNIT/ML INSULN.PEN 12 UNIT SC (08:45)
[2024-04-18] MEDS: Linacolotide 145 MCG CAPSULE PO (08:47)
[2024-04-18] MEDS: dilTIAZem CD 180 MG Capsule PO (08:50)
[2024-04-18] MEDS: Fenofibrate 145 MG Tablet PO (08:50)
[2024-04-18] MEDS: Vibegron 75 MG TABLET PO (08:50)
[2024-04-18] MEDS: Senna/Docusate Sodium 1 Tablet 2 TABLET PO (08:50)
[2024-04-18] MEDS: Loratadine 10 MG Tablet PO (08:51)
[2024-04-18] MEDS: guaiFENesin 1,200 MG Tablet 1200 MG PO (08:51)
[2024-04-18] MEDS: Cyanocobalamin 500 MCG Tablet 1000 MCG PO (08:52)
[2024-04-18] MEDS: Febuxostat 40 MG TABLET PO (08:52)
[2024-04-18] MEDS: Montelukast 10 MG Tablet PO (08:52)
[2024-04-18] MEDS: Pantoprazole Sodium 20 MG Tablet PO (08:52)
--- NOTE | 2024-04-18 10:21 | CASEMGMT ---
Social Work Pt can go to [facility] today, precert is still good. SW let physician know, he will discharge pt. SYLWIA Estrada
--- NOTE | 2024-04-18 10:37 | PCM.TXEXTCAR ---
Diet Diet Order/Speech Therapy: 04/15/24 06:05 Diet: Consistent Carb - Calorie Controlled Food consistency:: Pureed Liquid Consistency:: Regular/Thin Dietary Modifications:: Sodium Restricted Type of Dietary Supplement:: Glucerna Shake Is pt able to select menu?: No Fluid restriction:: 1500 mL Diet Comments: 120 cc glucerna TID meals, pt prefers strawberry glucerna How many daily calories?: 2000 calorie Wound(s) favian to top of head from [facility] skin cancer surgery: Wound Type: skin cancer removal Therapies Physical Therapy: Eval and Treat Occupational Therapy: Eval and Treat Problem/Diagnosis (1) Hematoma of abdominal wall: Status: Acute Code(s): S30.1XXA - Contusion of abdominal wall, initial encounter (2) Fall: Status: Acute Code(s): W19.XXXA - Unspecified fall, initial encounter (3) CHF exacerbation: Status: Chronic Code(s): I50.9 - Heart failure, unspecified Plan Patient is a 73-year-old lady with history of chronic hypoxic respiratory failure on 4 L of oxygen who slipped and fell presented to the emergency department. Workup did reveal bilateral patchy infiltrates consistent with pneumonia admitted to regular nursing floor for further management 1. Pneumonia With suspected streptococcal pneumonia. Imaging studies demonstrated bilateral hazy infiltrates. Started on Levaquin cultures sent so far negative to date 2. Acute on chronic congestive heart failure with preserved ejection fraction ? Echo from 11/16/2023 demonstrated EF of 53%. Patient was placed on strict input and output, daily weight, fluid restriction low-sodium diet as well as diuretic therapy has responded to treatment 3. Left flank hematoma ? Following patient for requested for PT OT 4. Anemia - Secondary to chronic disorder monitoring H&H and transfuse if patient becomes symptomatic or hemoglobin falls below 7 5. Chronic hypoxic respiratory failure ? Patient is on 4 L of oxygen at baseline 6. Class III obesity with BMI of 45.6 ? Complicating care weight loss advised 7. 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 Patient oral hypoglycemic agent held please on long-acting insulin in addition to sliding scale coverage 8. Chronic kidney disease stage IV ? Kidney function at baseline 9. Paroxysmal A-fib ? Rate control with diltiazem not on systemic anticoagulation due to significant risk for falls 10. Dyslipidemia ? Patient is on fenofibrate 11. Hypertension - Blood pressure controlled, home medications continued with dose adjustment as needed 12. GERD ? On PPI 13. Physical deconditioning - Requested for PT OT eval and social sciences research scientist to assist with discharge planning 14. DVT prophylaxis ? Chemoprophylaxis was held given her large flank hematoma Time spent in the patient's overall evaluation,decision-making process, review of diagnostic data, adjustment of management, discussion with other providers, nursing nursing and ancillary staff involved in patient's care documentation, 38 Minutes Allergies/Procedures Done in Hospital Allergies doxycycline Allergy (Intermediate, Verified 04/15/24 02:08) GI problems clindamycin Allergy (Verified 04/15/24 02:08) Rash insulin detemir (From Levemir U-100 Insulin) Allergy (Verified 04/15/24 02:08) Rash ciprofloxacin Adverse Reaction (Mild, Verified 04/15/24 02:08) Upset Stomach amoxicillin trihydrate (From Augmentin) Adverse Reaction (Verified 04/15/24 02:08) Nausea also yeast infection potassium clavulanate (From Augmentin) Adverse Reaction (Verified 04/15/24 02:08) Nausea Type of Care/Length of Stay Estimated LOS: Convalescent Care Less Than 30 days Type of Care Needed: Skilled Rehab Potential: Good Prognosis: Good Additional Orders/Day of Discharge Day of Discharge: 04/18/24 Dietary and Speech Recommendations Dietitian Recommendations/Changes: Continue with Carb Controlled - Calorie Controlled (2000kcal) diet, yet will add sodium restriction 2/2 fluid retention. Will also add Glucerna 120 mL TID w/ medpass to help improve oral intakes. Will continue to follow, monitor oral intakes as well as tolerance to ONS, and modify interventions as needed. Discharge Plan Admission Admit Date/Time: 04/15/24 06:05 Attending Provider: Vivek Mckeon Primary Care Provider: Veronica Oquendo Consulting Providers: Hoang Robison; David Murphy Discharge Orders/Prescriptions Prescriptions: New tizanidine 2 mg Tablet 2 mg PO Q8 PRN (Reason: Muscle Spasm) Qty: 0 0RF sennosides-docusate sodium [Stool Softener-Stimulant Laxat] 8.6-50 mg Tablet 2 tab PO BID Qty: 0 0RF levofloxacin 750 mg Tablet 750 mg PO Q48 Qty: 5 0RF oxycodone 5 mg Tablet 2.5 - 5 mg PO Q4H PRN PRN (Reason: Pain Score 4-10) 3 Days Qty: 10 0RF insulin lispro [Humalog KwikPen Insulin] 100 unit/mL Insulin Pen See Protocol subcut TIDAC Qty: 0 0RF Protocol: 3. Sliding Scale Insulin Med Dosing Condition: 150-189 mg/dl = 1 unit Condition: 190-229 mg/dl = 2 units Condition: 230-269 mg/dl = 3 units Condition: 270-309 mg/dl = 4 units Condition: 310-349 mg/dl = 5 units Condition: 350-399 mg/dl = 6 units Condition: 400-449 mg/dl = 7 units Condition: Greater than 449 call physician Protocol Text: - Use for Total Daily Dose of Insulin 37-55 units - Obsese, infected, or steroid patients MEDIUM DOSING ALGORITHIM insulin lispro [Humalog KwikPen Insulin] 100 unit/mL Insulin Pen 12 unit subcut 0800,1200,1700 Qty: 0 0RF guaifenesin [Mucus Relief ER] 1,200 mg Tablet Extended Release 12hr 1,200 mg PO BID Qty: 0 0RF acetaminophen 500 mg Tablet 1,000 mg PO Q8 Qty: 0 0RF Continued fluticasone propion-salmeterol [Advair Diskus] 500-50 mcg/dose blister with device 1 inh INHALATION BID aspirin 81 mg tablet,delayed release (DR/EC) 81 mg PO DAILY Qty: 1 0RF levalbuterol HCl 0.63 mg/3 mL solution for nebulization 0.63 mg inhalation Q6H PRN (Reason: wheeze) lidocaine 5 % adhesive patch,medicated 2 patch topical DAILY Rx Instructions: leave on most painful area for up to 12 hrs insulin glargine 100 unit/mL (3 mL) insulin pen 38 unit SC QPM budesonide 0.5 mg/2 mL suspension for nebulization 0.5 mg inhalation BID PRN (Reason: BREATHING) fenofibrate nanocrystallized [Tricor] 145 mg tablet 145 mg PO DAILY tramadol 50 mg tablet 50 mg PO Q12H omeprazole 20 mg capsule,delayed release(DR/EC) 20 mg PO DAILY mecobalamin (vitamin B12) 1,000 mcg tablet,chewable 1,000 mcg PO DAILY Acidophilus Capsule 10 mg PO DAILY Linzess 145 mcg capsule 145 mcg PO DAILY Tart Scott Extract 1,000 mg capsule 1,200 mg PO DAILY fluticasone propionate 1 SPRAY spray,suspension 2 spray NASAL DAILY PRN PRN (Reason: Congestion) febuxostat [Uloric] 40 MG tablet 40 mg PO DAILY pantoprazole 40 mg tablet,delayed release (DR/EC) 40 mg PO DAILY loratadine [Claritin] 10 mg Tablet 10 mg PO DAILY Myrbetriq 50 mg Tablet Extended Release 24 Hr 50 mg PO DAILY Spiriva Respimat 1.25 mcg/actuation Mist 2 puff INHALATION DAILY montelukast [Singulair] 10 mg Tablet 10 mg PO DAILY torsemide 10 mg tablet 10 mg PO DAILY Qty: 30 0RF Rx Instructions: take daily but take an extra dose for weight gain of 2 pounds in 1 day or 3 pounds in 1 week. albuterol sulfate 90 mcg/actuation HFA aerosol inhaler 2 puff INHALATION Q4H PRN (Reason: sob) Qty: 8.5 0RF (DME) pen needle, diabetic [BD Ultra-Fine Sonam Pen Needle] 32 gauge x 5/32 needle See Rx Instructions .ROUTE .MEDSUPPLY Qty: 400 3RF Rx Instructions: 4times daily (DME) FreeStyle Garett 2 Sensor Kit See Rx Instructions .ROUTE .MEDSUPPLY Qty: 6 3RF Rx Instructions: 1 sensor q 14 days diltiazem HCl [Tiazac] 180 mg capsule,extended release 24 hr 180 mg PO DAILY Qty: 90 3RF Discontinued acetaminophen [Tylenol Arthritis Pain] 650 mg tablet extended release 650 mg PO Q12H insulin aspart U-100 [Novolog FlexPen U-100 Insulin] 100 unit/mL (3 mL) insulin pen See Rx Instructions subcut TID Rx Instructions: 11-12-20 with meals subcut three times a day; Referrals / Follow Up: Veronica Oquendo DO [Primary Care Provider] - Within 2 Weeks Disposition Disposition (needs filled in before D/C Order can be placed): [facility]
[2024-04-18] MEDS: Polyethylene Glycol 3350 17 GM PACKET PO (10:41)
--- NOTE | 2024-04-18 10:45 | DS.PCM_ITS ---
Providers Date of Admission: 04/15/24 Date of Discharge: 04/18/24 Primary Care Physician: Dr. Veronica Oquendo, DO Reason For Visit: DEBILITY, PNEUMONIA Diagnosis Discharge Diagnosis (1) Hematoma of abdominal wall: Status: Acute Code(s): S30.1XXA - Contusion of abdominal wall, initial encounter (2) Fall: Status: Acute Code(s): W19.XXXA - Unspecified fall, initial encounter (3) CHF exacerbation: Status: Chronic Code(s): I50.9 - Heart failure, unspecified Plan Patient is a 73-year-old lady with history of chronic hypoxic respiratory failure on 4 L of oxygen who slipped and fell presented to the emergency department. Workup did reveal bilateral patchy infiltrates consistent with pneumonia admitted to regular nursing floor for further management 1. Pneumonia With suspected streptococcal pneumonia. Imaging studies demonstrated bilateral hazy infiltrates. Started on Levaquin cultures sent so far negative to date 2. Acute on chronic congestive heart failure with preserved ejection fraction ? Echo from 11/16/2023 demonstrated EF of 53%. Patient was placed on strict input and output, daily weight, fluid restriction low-sodium diet as well as diuretic therapy has responded to treatment 3. Left flank hematoma ? Following patient for requested for PT OT 4. Anemia - Secondary to chronic disorder monitoring H&H and transfuse if patient becomes symptomatic or hemoglobin falls below 7 5. Chronic hypoxic respiratory failure ? Patient is on 4 L of oxygen at baseline 6. Class III obesity with BMI of 45.6 ? Complicating care weight loss advised 7. 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 Patient oral hypoglycemic agent held please on long-acting insulin in addition to sliding scale coverage 8. Chronic kidney disease stage IV ? Kidney function at baseline 9. Paroxysmal A-fib ? Rate control with diltiazem not on systemic anticoagulation due to significant risk for falls 10. Dyslipidemia ? Patient is on fenofibrate 11. Hypertension - Blood pressure controlled, home medications continued with dose adjustment as needed 12. GERD ? On PPI 13. Physical deconditioning - Requested for PT OT eval and socially responsible investment adviser to assist with discharge planning 14. DVT prophylaxis ? Chemoprophylaxis was held given her large flank hematoma Time spent in the patient's overall evaluation,decision-making process, review of diagnostic data, adjustment of management, discussion with other providers, nursing nursing and ancillary staff involved in patient's care documentation, 38 Minutes Medications at Discharge Home Medications fluticasone propionate 50 mcg/actuation nasal spray,suspension 2 spray NASAL DAILY PRN PRN Congestion 06/21/17 febuxostat 40 mg tablet (Uloric) 40 mg PO DAILY gout 12/30/18 fluticasone 500 mcg-salmeterol 50 mcg/dose blistr powdr for inhalation (Advair Diskus) 1 inh inhalation BID SOB 07/17/20 aspirin 81 mg tablet,delayed release 81 mg PO DAILY #1 TAB 02/08/21 loratadine 10 mg tablet (Claritin) 10 mg PO DAILY Allergy 01/14/22 mirabegron 50 mg tablet,extended release 24 hr (Myrbetriq) 50 mg PO DAILY overactive bladder 01/14/22 tiotropium bromide 1.25 mcg/actuation mist for inhalation (Spiriva Respimat) 2 puff inhalation DAILY 01/14/22 fenofibrate nanocrystallized 145 mg tablet (Tricor) 145 mg PO DAILY Cholesterol 10/16/22 insulin glargine 100 unit/mL (3 mL) subcutaneous pen 38 unit subcut QPM DM 12/11/22 levalbuterol HCl 0.63 mg/3 mL solution for nebulization 0.63 mg inhalation Q6H PRN wheeze 12/11/22 lidocaine 5 % topical patch 2 patch topical DAILY pain 12/11/22 pen needle, diabetic 32 gauge x 5/32 (BD Ultra-Fine Sonam Pen Needle) #400 ea 01/22/23 montelukast 10 mg tablet (Singulair) 10 mg PO DAILY 02/22/23 omeprazole 20 mg capsule,delayed release 20 mg PO DAILY 03/03/23 tramadol 50 mg tablet 50 mg PO Q12H 03/03/23 pantoprazole 40 mg tablet,delayed release 40 mg PO DAILY GERD 05/07/23 Lactobacillus acidophilus (Acidophilus capsule) 10 mg PO DAILY 06/16/23 budesonide 0.5 mg/2 mL suspension for nebulization 0.5 mg inhalation BID PRN BREATHING 06/16/23 linaclotide 145 mcg capsule (Linzess) 145 mcg PO DAILY 06/16/23 mecobalamin (vitamin B12) 1,000 mcg chewable tablet 1,000 mcg PO DAILY 06/16/23 sour scott extract 1,000 mg capsule (Tart Scott Extract) 1,200 mg PO DAILY 06/16/23 albuterol sulfate 90 mcg/actuation aerosol inhaler 2 puff inhalation Q4H PRN sob #8.5 grams 11/17/23 torsemide 10 mg tablet 10 mg PO DAILY #30 tabs 11/17/23 flash glucose sensor (FreeStyle Garett 2 Sensor kit) #6 ea 01/18/24 diltiazem HCl 180 mg capsule,24 hr,extended release (Tiazac) 180 mg PO DAILY #90 caps 03/21/24 acetaminophen 500 mg tablet 1,000 mg (2 x 500 mg) PO Q8 #0 tabs 04/18/24 guaifenesin 1,200 mg tablet, extended release 12 hr (Mucus Relief ER) 1,200 mg PO BID #0 tabs 04/18/24 insulin lispro 100 unit/mL subcutaneous pen (Humalog KwikPen (U-100) Insulin) 12 unit (0.12 mL) subcut 0800,1200,1700 #0 mL 04/18/24 insulin lispro 100 unit/mL subcutaneous pen (Humalog KwikPen (U-100) Insulin) See Protocol subcut TIDAC #0 mL 04/18/24 levofloxacin 750 mg tablet 750 mg PO Q48 #5 tabs 04/18/24 oxycodone 5 mg tablet 2.5 - 5 mg (0.5 - 1 x 5 mg) PO Q4H PRN PRN Pain Score 4-10 3 days #10 tabs 04/18/24 sennosides 8.6 mg-docusate sodium 50 mg tablet (Stool Softener-Stimulant Laxative) 2 tab PO BID #0 tabs 04/18/24 tizanidine 2 mg tablet 2 mg PO Q8 PRN Muscle Spasm #0 tabs 04/18/24 Physical Exam Narrative GENERAL: cooperative HEENT: Atraumatic; normocephalic EYES; Anicteric, Normal Conjunctiva NECK; supple, normal thyroid, RESPIRATORY: Diminished to auscultation CARDIOVASCULAR: Regular S1 S2, GI: soft, normoactive bowel sounds, : No Renal angle tenderness; EXTREMITIES: No edema, no clubbing, MUSCULOSKELETAL: no muscle wasting NEURO: Awake; no lateralizing signs. SKIN: Large hematoma on the left flank PSYCH; Flat affect Weight / BMI Weight Weight: 102.3 kg Body Mass Index (BMI) 45.4 ABG / Lab / Microbiology Data 04/18/24 04:57 04/18/24 04:57 Laboratory: Laboratory Results - last 24 hr 04/17/24 11:30: WBC 10.1, RBC 2.96 L, Hgb 9.2 L, Hct 28.9 L, MCV 97.6, MCH 31.1, MCHC 31.8 L, RDW Std Deviation 54.8 H, RDW Coeff of Jazzmine 15.4 H, Plt Count 247, MPV 10.0, Immature Gran % (Auto) 1.300 H, Neut % (Auto) 75.3 H, Lymph % (Auto) 8.2 L, Stewart % (Auto) 13.9 H, Eos % (Auto) 1.0, Baso % (Auto) 0.3, Absolute Neuts (auto) 7.6, Absolute Lymphs (auto) 0.83, Nucleated RBC % 0, Sodium 137, Potassium 4.9, Chloride 98, Carbon Dioxide 32.0, Anion Gap 7, BUN 69 H, C reatinine 2.86 H, Estim Creat Clear Calc 18.69, Est GFR (MDRD) Af Amer 21 L, Est GFR (MDRD) Non-Af 17 L, BUN/Creatinine Ratio 24.1 H, Glucose 164 H, Calcium 10.3 H 04/17/24 11:44: POC Glucose 136 H 04/17/24 16:44: POC Glucose 164 H 04/17/24 21:42: POC Glucose 137 H 04/18/24 04:57: WBC 10.5, RBC 2.90 L, Hgb 8.8 L, Hct 28.4 L, MCV 97.9, MCH 30.3, MCHC 31.0 L, RDW Std Deviation 54.5 H, RDW Coeff of Jazzmine 15.4 H, Plt Count 252, MPV 10.1, Immature Gran % (Auto) 1.200 H, Neut % (Auto) 74.7 H, Lymph % (Auto) 9.8 L, Stewart % (Auto) 12.8 H, Eos % (Auto) 1.1, Baso % (Auto) 0.4, Absolute Neuts (auto) 7.8 H, Absolute Lymphs (auto) 1.02, Nucleated RBC % 0, Sodium 136, Potassium 4.5, Chloride 98, Carbon Dioxide 31.0, Anion Gap 7, BUN 70 H, C reatinine 2.59 H, Estim Creat Clear Calc 20.83, Est GFR (MDRD) Af Amer 23 L, Est GFR (MDRD) Non-Af 19 L, BUN/Creatinine Ratio 27.0 H, Glucose 143 H, Calcium 10.6 H 04/18/24 07:36: POC Glucose 139 H Microbiology: Microbiology 04/15/24 08:00 Blood Culture (Wb) - Arm Left Blood Culture - Preliminary No growth in 48 hours. 04/15/24 07:55 Blood Culture (Wb) - Arm Right Blood Culture - Preliminary No growth in 48 hours. 04/15/24 12:30 Urine, Random Legionella Antigen - Final 04/15/24 12:30 Urine, Random Streptococcus pneumoniae Antigen (M - Final 04/15/24 07:20 Mucosa - Nose Coronavirus COVID-19 PCR - Final 04/15/24 07:20 Mucosa - Nose Respiratory Panel (PCR) - Final D/C Instructions Discharge Diet: 1800 Calorie Control Diet Discharge Activity: Return to Normal Activity Call your doctor if you observe: Fever of 101 or Higher, Shortness of breath, Fainting spells and Chest pain Meaningful Use Info Meaningful Use Meaningful Use Diagnoses (Choose all that apply): None applicable Ischemic Stroke Statin Dosing Therapy Reference: STATIN DOSE THERAPY REFERENCE: * Patients > 75 years receive moderate or high dose statin therapy. * Patients 75 years or YOUNGER should receive HIGH intensity statin dose unless contraindicated. You will be required to document reason for non-treatment if statin daily dose does not meet guidelines. HIGH DOSE STATIN THERAPY DAILY Atorvastatin > than or = to 40 mg Rosuvastatin > than or = to 20 mg Amlodipine + Atorvastatin > than or = to 2.5/40 mg Ezetimibe + Simvastatin 10/80 mg Simvastatin 80mg Discharge Plan Admission Admit Date/Time: 04/15/24 06:05 Attending Provider: Vivek Mckeon Primary Care Provider: Veronica Oquendo Consulting Providers: Hoang Robison; David Murphy Discharge Orders/Prescriptions Prescriptions: New tizanidine 2 mg Tablet 2 mg PO Q8 PRN (Reason: Muscle Spasm) Qty: 0 0RF sennosides-docusate sodium [Stool Softener-Stimulant Laxat] 8.6-50 mg Tablet 2 tab PO BID Qty: 0 0RF levofloxacin 750 mg Tablet 750 mg PO Q48 Qty: 5 0RF oxycodone 5 mg Tablet 2.5 - 5 mg PO Q4H PRN PRN (Reason: Pain Score 4-10) 3 Days Qty: 10 0RF insulin lispro [Humalog KwikPen Insulin] 100 unit/mL Insulin Pen See Protocol subcut TIDAC Qty: 0 0RF Protocol: 3. Sliding Scale Insulin Med Dosing Condition: 150-189 mg/dl = 1 unit Condition: 190-229 mg/dl = 2 units Condition: 230-269 mg/dl = 3 units Condition: 270-309 mg/dl = 4 units Condition: 310-349 mg/dl = 5 units Condition: 350-399 mg/dl = 6 units Condition: 400-449 mg/dl = 7 units Condition: Greater than 449 call physician Protocol Text: - Use for Total Daily Dose of Insulin 37-55 units - Obsese, infected, or steroid patients MEDIUM DOSING ALGORITHIM insulin lispro [Humalog KwikPen Insulin] 100 unit/mL Insulin Pen 12 unit subcut 0800,1200,1700 Qty: 0 0RF guaifenesin [Mucus Relief ER] 1,200 mg Tablet Extended Release 12hr 1,200 mg PO BID Qty: 0 0RF acetaminophen 500 mg Tablet 1,000 mg PO Q8 Qty: 0 0RF Continued fluticasone propion-salmeterol [Advair Diskus] 500-50 mcg/dose blister with device 1 inh INHALATION BID aspirin 81 mg tablet,delayed release (DR/EC) 81 mg PO DAILY Qty: 1 0RF levalbuterol HCl 0.63 mg/3 mL solution for nebulization 0.63 mg inhalation Q6H PRN (Reason: wheeze) lidocaine 5 % adhesive patch,medicated 2 patch topical DAILY Rx Instructions: leave on most painful area for up to 12 hrs insulin glargine 100 unit/mL (3 mL) insulin pen 38 unit SC QPM budesonide 0.5 mg/2 mL suspension for nebulization 0.5 mg inhalation BID PRN (Reason: BREATHING) fenofibrate nanocrystallized [Tricor] 145 mg tablet 145 mg PO DAILY tramadol 50 mg tablet 50 mg PO Q12H omeprazole 20 mg capsule,delayed release(DR/EC) 20 mg PO DAILY mecobalamin (vitamin B12) 1,000 mcg tablet,chewable 1,000 mcg PO DAILY Acidophilus Capsule 10 mg PO DAILY Linzess 145 mcg capsule 145 mcg PO DAILY Tart Scott Extract 1,000 mg capsule 1,200 mg PO DAILY fluticasone propionate 1 SPRAY spray,suspension 2 spray NASAL DAILY PRN PRN (Reason: Congestion) febuxostat [Uloric] 40 MG tablet 40 mg PO DAILY pantoprazole 40 mg tablet,delayed release (DR/EC) 40 mg PO DAILY loratadine [Claritin] 10 mg Tablet 10 mg PO DAILY Myrbetriq 50 mg Tablet Extended Release 24 Hr 50 mg PO DAILY Spiriva Respimat 1.25 mcg/actuation Mist 2 puff INHALATION DAILY montelukast [Singulair] 10 mg Tablet 10 mg PO DAILY torsemide 10 mg tablet 10 mg PO DAILY Qty: 30 0RF Rx Instructions: take daily but take an extra dose for weight gain of 2 pounds in 1 day or 3 pounds in 1 week. albuterol sulfate 90 mcg/actuation HFA aerosol inhaler 2 puff INHALATION Q4H PRN (Reason: sob) Qty: 8.5 0RF (DME) pen needle, diabetic [BD Ultra-Fine Sonam Pen Needle] 32 gauge x 5/32 needle See Rx Instructions .ROUTE .MEDSUPPLY Qty: 400 3RF Rx Instructions: 4times daily (DME) FreeStyle Garett 2 Sensor Kit See Rx Instructions .ROUTE .MEDSUPPLY Qty: 6 3RF Rx Instructions: 1 sensor q 14 days diltiazem HCl [Tiazac] 180 mg capsule,extended release 24 hr 180 mg PO DAILY Qty: 90 3RF Discontinued acetaminophen [Tylenol Arthritis Pain] 650 mg tablet extended release 650 mg PO Q12H insulin aspart U-100 [Novolog FlexPen U-100 Insulin] 100 unit/mL (3 mL) insulin pen See Rx Instructions subcut TID Rx Instructions: 11-12-20 with meals subcut three times a day; Referrals / Follow Up: Veronica Oquendo DO [Primary Care Provider] - Within 2 Weeks Disposition Disposition (needs filled in before D/C Order can be placed): Residential Facility Charges/Coding Visit Charges Inpatient E&M: 30950 Disch Hosp >30min
[2024-04-18] MEDS: Lidocaine 5% Patch 2 PATCH TOPICAL (10:46)
[2024-04-18 11:19] LABS: Bedside Glucose 119 mg/dL (74-106)
--- NOTE | 2024-04-18 11:20 | CASEMGMT ---
Discharge Planning Discharge orders, signed med list, and transport time sent to [facility] via [facility]. Physicians will transport patient by wheelchair at noon. Nursing, SW, patient, and her updated. Deena Marmolejo DC Planning Asst.
== END 2024-04-18 11:56 | DRG 193 ==
LOC: ED 05:33 → MS3 05:46
PROVIDERS: Internal Medicine; Emergency Provider Emergency Medicine; PCP Internal Medicine; Visit Provider Internal Medicine
DX: J13 Pneumonia due to Streptococcus pneumoniae (principal); I50.33 Acute on chronic diastolic (congestive) heart failure; J44.0 Chronic obstructive pulmonary disease with (acute) lower respiratory infection; J96.11 Chronic respiratory failure with hypoxia; I13.0 Hypertensive heart and chronic kidney disease with heart failure and stage 1 through stage 4 chronic kidney disease, or unspecified chronic kidney disease; N18.4 Chronic kidney disease, stage 4 (severe); Z68.41 Body mass index [BMI] 40.0-44.9, adult; I27.21 Secondary pulmonary arterial hypertension; E11.22 Type 2 diabetes mellitus with diabetic chronic kidney disease; E66.01 Morbid (severe) obesity due to excess calories; E11.42 Type 2 diabetes mellitus with diabetic polyneuropathy; I48.0 Paroxysmal atrial fibrillation; Z79.4 Long term (current) use of insulin; E78.5 Hyperlipidemia, unspecified; M54.50 Low back pain, unspecified; S20.212A Contusion of left front wall of thorax, initial encounter; S30.1XXA Contusion of abdominal wall, initial encounter; W01.190A Fall on same level from slipping, tripping and stumbling with subsequent striking against furniture, initial encounter; K21.9 Gastro-esophageal reflux disease without esophagitis; G47.33 Obstructive sleep apnea (adult) (pediatric); Y92.009 Unspecified place in unspecified non-institutional (private) residence as the place of occurrence of the external cause; Z99.81 Dependence on supplemental oxygen; Z11.52 Encounter for screening for COVID-19; Z79.82 Long term (current) use of aspirin; Z79.51 Long term (current) use of inhaled steroids; Z87.891 Personal history of nicotine dependence
CPT/HCPCS: 36415; 71250; 74176; 80048; 82962; 85025; 85610; 85730; 87040; 87449; 87633; 87635; 92610; 94640; 94667; 94668; 97110; 97162; 97166; 97530; 97535; 99285; J7050; J7120; A4216; J1940; J2405

== ENCOUNTER 2024-05-03 11:32 | Observation (INO) | payer MEDICARE, OTHER, SELFPAY ==
[2022-07-11 11:12] VITALS: BMI 40.4
[2024-05-03] VITALS (12 sets, daily range): BP systolic 108–164; BP diastolic 56–67; PULSE 68–79; RESP 16–24; TEMP 35.5–36.9; O2SAT 94–98; BMI 46.5; BMI 44.6
--- NOTE | 2024-05-03 11:44 | EKG12_ITS ---
Test Reason : SOB Blood Pressure : / mmHG Vent. Rate : 073 BPM Atrial Rate : 073 BPM P-R Int : 178 ms QRS Dur : 162 ms QT Int : 452 ms P-R-T Axes : 054 111 058 degrees QTc Int : 497 ms Normal sinus rhythm Right bundle branch block WITH LPHB Abnormal ECG Confirmed by Lobito Tolentino ([id number]), copy editor ALIN HUNTER ([id number]) on 05/04/2024 2:54:18 PM Referred By: Confirmed By:Lobito Tolentino
--- NOTE | 2024-05-03 11:45 | EDS_ITS ---
HPI History of Present Illness Chief Complaint: Shortness of Breath [facility] Medical History Melanoma High triglycerides Hearing problem Back problem Arthritis Lower extremity edema COVID-19 Osteoporosis Diabetes Secondary pulmonary arterial hypertension Muscle spasm Constipation Overactive bladder Gout Allergic rhinitis Osteoporosis Compression fracture of L1 vertebra Intractable low back pain Debility Venous insufficiency of both lower extremities Hyperuricemia GERD (gastroesophageal reflux disease) Morbid obesity Noncompliance with CPAP treatment Obstructive sleep apnea Chronic renal failure, stage 3 (moderate) Dysphagia Osteopenia Right bundle branch block (RBBB) Asthma Essential (primary) hypertension Paroxysmal atrial fibrillation Obesity (BMI 30-39.9) Pneumonia Lung abscess On home O2 Sarcoidosis Type 2 diabetes mellitus Chronic obstructive lung disease Hyperlipidemia Home Medications ?Medication ?Instructions ?Recorded ?Last Taken ?Type fluticasone propionate 50 2 spray NASAL DAILY PRN PRN NASAL 06/21/17 11/19/20 History mcg/actuation nasal CONGESTION spray,suspension febuxostat 40 mg tablet (Uloric) 40 mg PO DAILY GOUT 12/30/18 11/19/20 History fluticasone 500 mcg-salmeterol 50 1 inh inhalation BID SHORTNESS OF 07/17/20 11/19/20 History mcg/dose blistr powdr for BREATH inhalation (Advair Diskus) aspirin 81 mg tablet,delayed 81 mg PO DAILY HEART HEALTH #1 TAB 02/08/21 Unknown Rx release loratadine 10 mg tablet (Claritin) 10 mg PO DAILY ALLERGY 01/14/22 Unknown History mirabegron 50 mg tablet,extended 50 mg PO DAILY OVERACTIVE BLADDER 01/14/22 Unknown History release 24 hr (Myrbetriq) tiotropium bromide 1.25 2 puff inhalation DAILY 01/14/22 Unknown History mcg/actuation mist for inhalation (Spiriva Respimat) fenofibrate nanocrystallized 145 145 mg PO DAILY CHOLESTEROL 10/16/22 Unknown History mg tablet (Tricor) insulin glargine 100 unit/mL (3 38 unit subcut QPM DIABETES 12/11/22 Unknown History mL) subcutaneous pen levalbuterol HCl 0.63 mg/3 mL 0.63 mg inhalation Q6H PRN WHEEZING 12/11/22 Unknown History solution for nebulization lidocaine 5 % topical patch 2 patch topical DAILY PAIN 12/11/22 Unknown History pen needle, diabetic 32 gauge x #400 ea 01/22/23 Unknown Rx (BD Ultra-Fine Sonam Pen Needle) montelukast 10 mg tablet 10 mg PO DAILY ASTHMA 02/22/23 Unknown History (Singulair) omeprazole 20 mg capsule,delayed 20 mg PO DAILY GERD 03/03/23 Unknown History release tramadol 50 mg tablet 50 mg PO Q12H 03/03/23 Unknown History pantoprazole 40 mg tablet,delayed 40 mg PO DAILY GERD 05/07/23 Unknown History release Lactobacillus acidophilus 10 mg PO DAILY 06/16/23 Unknown History (Acidophilus capsule) budesonide 0.5 mg/2 mL suspension 0.5 mg inhalation BID PRN BREATHING 06/16/23 Unknown History for nebulization linaclotide 145 mcg capsule 145 mcg PO DAILY IRRITABLE BOWELS 06/16/23 Unknown H istory (Linzess) mecobalamin (vitamin B12) 1,000 1,000 mcg PO DAILY 06/16/23 Unknown History mcg chewable tablet sour scott extract 1,000 mg 1,200 mg PO DAILY 06/16/23 Unknown History capsule (Tart Scott Extract) albuterol sulfate 90 mcg/actuation 2 puff inhalation Q4H PRN 11/17/23 Unknown Rx aerosol inhaler SHORTNESS OF BREATH #8.5 grams flash glucose sensor (FreeStyle #6 ea 01/18/24 Unknown Rx Garett 2 Sensor kit) diltiazem HCl 180 mg capsule,24 180 mg PO DAILY BLOOD PRESSURE 03/21/24 Unknown Rx hr,extended release (Tiazac) #90 caps guaifenesin 1,200 mg tablet, 1,200 mg PO BID CONGESTION #0 tabs 04/18/24 Unknown Rx extended release 12 hr (Mucus Relief ER) insulin lispro 100 unit/mL 12 unit (0.12 mL) subcut 04/18/24 Unknown Rx subcutaneous pen (Humalog KwikPen 0800,1200,1700 #0 mL (U-100) Insulin) insulin lispro 100 unit/mL See Protocol subcut TIDAC #0 mL 04/18/24 Unknown Rx subcutaneous pen (Humalog KwikPen (U-100) Insulin) oxycodone 5 mg tablet 2.5 - 5 mg (0.5 - 1 x 5 mg) PO Q4H 04/18/24 Unknown Rx PRN PRN Pain Score 4-10 3 days #10 tabs sennosides 8.6 mg-docusate sodium 2 tab PO BID #0 tabs 04/18/24 Unknown Rx 50 mg tablet (Stool Softener-Stimulant Laxative) tizanidine 2 mg tablet 2 mg PO Q8 PRN Muscle Spasm #0 tabs 04/18/24 Unknown Rx acetaminophen 500 mg tablet 1,000 mg PO Q8H PAIN 05/03/24 Unknown History azelastine 137 mcg (0.1 %) nasal 1 spray intranasal BID 05/03/24 Unknown History spray aerosol carvedilol 6.25 mg tablet 6.25 mg PO BID 05/03/24 Unknown History insulin aspart U-100 100 unit/mL subcut 05/03/24 Unknown History (3 mL) subcutaneous pen (Novolog FlexPen U-100 Insulin aspart) polyethylene glycol 3350 17 17 PO DAILY 05/03/24 Unknown History gram/dose oral powder sitagliptin phosphate 25 mg tablet 25 mg PO DAILY 05/03/24 Unknown History (Januvia) torsemide 20 mg tablet 20 mg PO DAILY 05/03/24 Unknown History Allergy/AdvReac Type Severity Reaction Status Date / Time doxycycline Allergy Intermediate GI problems Verified 05/03/24 14:28 clindamycin Allergy Rash Verified 05/03/24 14:28 insulin detemir (From Allergy Rash Verified 05/03/24 14:28 Levemir U-100 Insulin) ciprofloxacin AdvReac Mild Upset Verified 05/03/24 14:28 Stomach amoxicillin trihydrate (From AdvReac Nausea Verified 05/03/24 14:28 Augmentin) potassium clavulanate (From AdvReac Nausea Verified 05/03/24 14:28 Augmentin) Family History Father Hypertension Colon cancer Cancer lung Mother Hypertension Heart disease Diabetes Other Hypercholesterolemia Melanoma Surgical History History of right and left heart catheterization (05/04/20) History of cholecystectomy History of laminectomy History of knee replacement procedure of left knee Social History Smoking Status: Former smoker how long ago did patient quit smokin years ago alcohol intake: never substance use type: does not use caffeine: Yes Type: coffee Number of servings: 2 additional social history: Uses aspirin. Does not use ibuprofen. EXAM Physical Exam Const Vital Signs: 05/03/24 11:33 05/03/24 11:44 05/03/24 11:45 Temperature 96 F L Temperature Source Temporal Pulse Rate 75 Respiratory Rate 22 H Respiratory Effort Normal Non-Labored Respiratory Depth Normal Respiratory Pattern Normal Blood Pressure 108/62 Blood Pressure Mean 77 Pulse Ox 94 Oxygen Delivery Method Nasal Cannula Nasal Cannula Nasal Cannula Oxygen Flow Rate (L/min) 4 4 4 05/03/24 12:32 05/03/24 13:45 05/03/24 14:00 Temperature Temperature Source Pulse Rate 70 74 68 Respiratory Rate 18 20 H 24 H Respiratory Effort Respiratory Depth Respiratory Pattern Blood Pressure 125/56 H 139/62 H 142/62 H Blood Pressure Mean 79 87 88 Pulse Ox 96 97 94 Oxygen Delivery Method Nasal Cannula Room Air Oxygen Flow Rate (L/min) 4 05/03/24 14:29 Temperature 98.4 F Temperature Source Pulse Rate 70 Respiratory Rate 16 Respiratory Effort Respiratory Depth Respiratory Pattern Blood Pressure 139/67 H Blood Pressure Mean 91 Pulse Ox 96 Oxygen Delivery Method Oxygen Flow Rate (L/min) MDM MDM MDM Narrative Medical decision making narrative: HISTORY OF PRESENT ILLNESS: 73-year-old female here with worsening shortness of breath. Notes cough is productive of yellow sputum. Notes also has cough. Denies chest pain but notes chest heaviness. Notes lower extremity edema. Notes orthopnea. Notes worsening dyspnea on exertion. Notes she wears 4 L of oxygen at home and when she exerts so she drops down to the mid to low 80s despite being on oxygen. The patient denies recent surgery in the last 4 weeks or immobilization in the last 3 days, denies previous diagnosis of DVT or PE, hemoptysis, unilateral leg swelling or malignancy with treatment the last 6 months or palliative. No estrogen use noted. REVIEW OF SYSTEMS: Pertinent positives: Shortness of breath, lower extremity edema, dyspnea on exertion Pertinent negatives: Chest pain, bleeding diathesis PHYSICAL EXAM: Nursing triage notes reviewed, Vital signs reviewed Constitutional: please see mdm HENT: MMM Eyes: Pupils equal round and reactive to light, Extraocular muscles intact Neck: No stridor, no JVD, full neck ROM Lungs: Bilateral rales, conversational dyspnea, noted increased work of breathing, but no conversational dyspnea, no accessory muscle use, no nasal flaring. No respiratory distress noted Heart: Regular rate and rhythm, No murmurs, No rubs and No gallops, 2+ distal pulses (radial, femoral, posterior tibial) in all extremities Abdomen: Soft, there is no tenderness, rigidity, rebound or guarding, no obvious peritoneal signs, no palpable pulsatile abdominal masses, no auscultated abdominal bruit : No CVAT Extremities: 1-2+ pitting edema bilateral lower extremities Neuro: No focal neurological deficits, cranial nerves II through XII intact, 5/5 strength in all extremities. Intact sensation to light touch in all extremities, 2+ reflexes bilateral patella tendons. Normal gait. No ataxia. Skin: No rash or lesions noted MEDICAL DECISION MAKING: Chief Complaint: Shortness of breath External records reviewed: Noted ejection fraction 55% from echocardiogram dated October 2023 Factors affecting care: Heart failure, atrial fibrillation, hypertension Social determinants of health: History obtained from others: The patient's Consults: Internal medicine: Dr. Watts [facility] Narrative: Patient was initially hemodynamically stable, afebrile nontoxic-appearing saturating well on her home oxygen however she had increased work of breathing and conversational dyspnea. I considered the following differential diagnosis: CHF exacerbation, COPD exacerbation, PE, pneumonia, anemia, arrhythmia, ACS, viral illness I considered PE as a potential etiology however the patient had focal lung findings, Low risk Wells score, and had findings more suggestive of CHF I obtained a broad lab and imaging workup to further elucidate etiology patient complaint ALL IMAGES (IF OBTAINED) HAVE BEEN PERSONALLY REVIEWED AND INTERPRETED BY MYSELF. EKG with normal sinus rhythm, right axis deviation, right bundle branch block, no STEMI, similar to prior EKG from October 2023 CBC shows no leukocytosis but mild anemia no thrombocytopenia VBG without significant CO2 retention to suggest respiratory acidosis BMP without significant electrolyte abnormalities, improved CKD High-sensitivity troponin is negative, no evidence of myocardial ischemia BNP elevated consistent with volume overload Chest x-ray was read reviewed myself shows evidence of volume overload The synthesis of the patient's history, physical exam, labs images suggest a CHF exacerbation for which she was given dose of IV Lasix. Winter was placed for accurate intake and output measurement. Patient is admitted primarily for exertional hypoxia despite being on baseline oxygen. Discussed with internal medicine physician The patient and/or family, caregivers express understanding. The patient and/or family, caregivers agrees with the plan. Shared decision making: I will have a discussion with the patient and or visitors regarding risk/benefits of further testing or admission. They will be made aware of of the risk/benefits inherent in this decision they will be given the opportunity to voice understanding. Total critical care time today provided was at least 0 minutes. This excludes separately billable procedures. Critical care time (if documented) is secondary to the patient having high probability of clinically significant/life threatening deterioration in the patient's condition which required my urgent intervention. Impression: 1. Hypoxia 2. Acute CHF exacerbation 3. History of CKD Dispo: Admit to PCU This note was generated with [employer] dictation software. It may contain incorrect words, spelling, and punctuation that were not noted in review of the chart prior to signing. Lab Data Labs: Laboratory Results - last 24 hr 05/03/24 11:50 WBC 8.5 RBC 3.24 L Hgb 9.7 L Hct 32.2 L MCV 99.4 H MCH 29.9 MCHC 30.1 L RDW Std Deviation 54.7 H RDW Coeff of Jazzmine 14.9 H Plt Count 273 MPV 9.6 Immature Gran % (Auto) 0.900 Neut % (Auto) 75.7 H Lymph % (Auto) 6.8 L [place] % (Auto) 13.3 H Eos % (Auto) 2.8 Baso % (Auto) 0.5 Absolute Neuts (auto) 6.5 Absolute Lymphs (auto) 0.58 L Nucleated RBC % 0 Sodium 139 Potassium 4.0 Chloride 103 Carbon Dioxide 32.0 Anion Gap 4 L BUN 36 H Creatinine 1.63 H Estim Creat Clear Calc 33.55 Est GFR (MDRD) Af Amer 40 L Est GFR (MDRD) Non-Af 33 L BUN/Creatinine Ratio 22.1 H Glucose 132 H Calcium 10.3 H Troponin I High Sens 20 B-Natriuretic Peptide 145.2 H ABG Data ABG results: ABG 05/03/24 12:55 Specimen Type KURT Sample Site Not entered O2 % 4.0 VBG pH 7.43 H VBG pO2 43 H VBG HCO3 36 H VBG Total CO2 37 H VBG O2 Sat (Calc) 79 H VBG Base Excess 11 H POC Mix VBG pCO2 Pt Tmp 54.4 H O2 Delivery Device Cannula Radiography Diagnostic Testing: Clinical Impression(s) from Imaging Studies Chest X-Ray 05/03/24 12:06 IMPRESSION: Findings suggestive of a CHF as compared to prior study. Cardiomegaly. Electronically Signed: Anam Larios MD at 12:20 EDT , Discharge Plan Triage Chief Complaint: Shortness of Breath ED Provider: Sorin Apodaca Dx/Rx/DC Orders Primary Care Provider: Veronica Oquendo
--- NOTE | 2024-05-03 12:06 | RAD_ITS ---
STUDY: X-RAY CHEST REASON FOR EXAM: Female, 73 years old. SOB TECHNIQUE: Single AP portable view of the chest. COMPARISON: Comparison is made with prior study dated March 09, 2024. FINDINGS: EKG electrodes are seen. Since prior study, there has been an increase in the interstitial markings more prominent in the right lung. This most likely represents a mild degree of CHF. There is no demonstrated pleural abnormality. Cardiomegaly. Calcified mediastinal and hilar lymphadenopathy. Normal visualized pulmonary arteries. There is atherosclerotic calcification of the aortic arch with tortuosity. There are diffuse degenerative changes of the visualized thoracic spine. Normal visualized ribs, clavicles, and shoulders. There is no demonstrated abnormality of the visualized soft tissue structures of the upper abdomen. RAD/Chest 1 View (Portable) IMPRESSION: Findings suggestive of a CHF as compared to prior study. Cardiomegaly. Electronically Signed: Anam Larios MD at 12:20 EDT ,
[2024-05-03 12:17] LABS: Absolute Lymphocyte Count 0.58 X10^3/uL (0.83-4.51); Absolute Neutrophil Count 6.5 X10^3/uL (2.0-7.7); Basophil# 0.04 X10^3/uL; Basophil% 0.5 % (0-1); Eosinophil# 0.24 X10^3/uL; Eosinophils% 2.8 % (0-5); Hematocrit 32.2 % (37-47); Hemoglobin 9.7 g/dL (12.0-15.0); Lymphocyte # 0.58 X10^3/ul (0.83-4.51); Lymphocyte % 6.8 % (19-41); Mean Corp Hgb Conc 30.1 g/dL (32-36); Mean Corpuscular Hgb 29.9 pg (27.0-32.0); Mean Corpuscular Volume 99.4 fL (81-99); Mean Platelet Vol. 9.6 fl (6.2-12.0); Monocyte# 1.13 X10^3/uL; Monocyte% 13.3 % (0-10); NRBC Flagged by Analyzer 0 % (0-5); Neutrophil # 6.45 X10^3/uL (2.7-7.7); Neutrophil % 75.7 % (47-70); POSITIVE DIFFERENTIAL YES; Platelet Count 273 K/mm3 (150-450); RBC Distribution Width CV 14.9 % (11.6-14.6); RBC Distribution Width SD 54.7 fl (35.1-43.9); Red Blood Count 3.24 M/mm3 (4.2-5.4); White Blood Count 8.5 K/mm3 (4.4-11.0)
[2024-05-03 12:22] LABS: BNP,B-Type NATRIURETIC PEPTIDE 145.2 pg/mL (0-100)
[2024-05-03 12:25] LABS: Anion Gap 4 (5-15); BUN 36 mg/dL (7-18); BUN/Creat Ratio 22.1 RATIO (10-20); Calcium,Total 10.3 mg/dL (8.5-10.1); Chloride 103 mmol/L (98-107); Creatinine, Serum 1.63 mg/dL (0.55-1.02); EST Glomerular Filtration Rate 33 mL/min (>60); Est Glom Filt Rate - Afr Amer 40 mL/min (>60); Estimated Creatinine Clearance 33.55 ml/min; Glucose 132 mg/dL (74-106); Sodium Level 139 mmol/L (136-145); Troponin-I HS 20 pg/mL (3.0-54.0)
[2024-05-03] MEDS: Furosemide 100 MG/10 ML Vial 60 MG IV (12:56)
[2024-05-03 12:58] LABS: Blood Gas Specimen Type VEN; O2 Delivery Device Cannula; SITE Not entered; VBG BASE EXCESS 11 mmol/L (-1.0-3.5); VBG Bicarbonate 36 mmol/L (22-26); VBG PO2 43 mmHg (25-40); VBG SO2 79 % (50-70); VBG TCO2 37 mmol/L (23-33); VBG pCO2 54.4 mmHg (41-51); VBG pH 7.43 (7.32-7.42)
--- NOTE | 2024-05-03 13:16 | HP.PCM.HOS_ITS ---
HPI - General General Date of Admission: 05/03/24 Date of Service: 05/03/24 Chief Complaint: shortness of breath HPI Narrative WALLACE BAZAN, is a 73 F with a PMH as outlined who presents via the ED on 05/03/2024 with a complaint of shortness of breath. Her shortness of breath had been going on for several days, and she had an associated cough productive of yellowish sputum. She denied chest pain but [facility] Her shortness of breath worsened with exertion and her oxygen saturation dropped to the mid 80s. She denied any palpitations, nausea, vomiting, lower extremity edema or any other symptoms. Review of systems was otherwise negative. Vitals in the ED were Bp of 125/56, CT of 70, RR of 18 and oxygen sats of 96% on 4L of oxygen. CBC showed wbc of 8.5, hb of 9.7 and platelets of 273. Chemistry showed sodium of 139, potassium of 4, Cr of 1.63 and initial BNP of 145.2. CXR showed evidence of fluid overload and EKG showed no acute ST changes. She is being admitted to be managed for hypoxia in the setting of acute exacerbation of HFpEF. [facility] Medical History Melanoma High triglycerides Hearing problem Back problem Arthritis Lower extremity edema COVID-19 Osteoporosis Diabetes Secondary pulmonary arterial hypertension Muscle spasm Constipation Overactive bladder Gout Allergic rhinitis Osteoporosis Compression fracture of L1 vertebra Intractable low back pain Debility Venous insufficiency of both lower extremities Hyperuricemia GERD (gastroesophageal reflux disease) Morbid obesity Noncompliance with CPAP treatment Obstructive sleep apnea Chronic renal failure, stage 3 (moderate) Dysphagia Osteopenia Right bundle branch block (RBBB) Asthma Essential (primary) hypertension Paroxysmal atrial fibrillation Obesity (BMI 30-39.9) Pneumonia Lung abscess On home O2 Sarcoidosis Type 2 diabetes mellitus Chronic obstructive lung disease Hyperlipidemia Home Medications ?Medication ?Instructions ?Recorded ?Last Taken ?Type fluticasone propionate 50 2 spray NASAL DAILY PRN PRN NASAL 06/21/17 11/19/20 History mcg/actuation nasal CONGESTION spray,suspension febuxostat 40 mg tablet (Uloric) 40 mg PO DAILY GOUT 12/30/18 11/19/20 History fluticasone 500 mcg-salmeterol 50 1 inh inhalation BID SHORTNESS OF 07/17/20 11/19/20 History mcg/dose blistr powdr for BREATH inhalation (Advair Diskus) aspirin 81 mg tablet,delayed 81 mg PO DAILY HEART HEALTH #1 TAB 02/08/21 Unknown Rx release loratadine 10 mg tablet (Claritin) 10 mg PO DAILY ALLERGY 01/14/22 Unknown History mirabegron 50 mg tablet,extended 50 mg PO DAILY OVERACTIVE BLADDER 01/14/22 Unknown History release 24 hr (Myrbetriq) tiotropium bromide 1.25 2 puff inhalation DAILY sob 01/14/22 Unknown History mcg/actuation mist for inhalation (Spiriva Respimat) fenofibrate nanocrystallized 145 145 mg PO DAILY CHOLESTEROL 10/16/22 Unknown History mg tablet (Tricor) insulin glargine 100 unit/mL (3 38 unit subcut QPM DIABETES 12/11/22 Unknown History mL) subcutaneous pen levalbuterol HCl 0.63 mg/3 mL 0.63 mg inhalation Q6H PRN WHEEZING 12/11/22 Unknown History solution for nebulization pen needle, diabetic 32 gauge x #400 ea 01/22/23 Unknown Rx (BD Ultra-Fine Sonam Pen Needle) montelukast 10 mg tablet 10 mg PO DAILY ASTHMA 02/22/23 Unknown History (Singulair) omeprazole 20 mg capsule,delayed 20 mg PO DAILY GERD 03/03/23 Unknown History release tramadol 50 mg tablet 50 mg PO Q12H pain 03/03/23 Unknown History pantoprazole 40 mg tablet,delayed 40 mg PO DAILY GERD 05/07/23 Unknown History release Lactobacillus acidophilus 10 mg PO DAILY 06/16/23 Unknown History (Acidophilus capsule) budesonide 0.5 mg/2 mL suspension 0.5 mg inhalation BID PRN BREATHING 06/16/23 Unknown History for nebulization linaclotide 145 mcg capsule 145 mcg PO DAILY IRRITABLE BOWELS 06/16/23 Unknown History (Linzess) mecobalamin (vitamin B12) 1,000 1,000 mcg PO DAILY 06/16/23 Unknown History mcg chewable tablet sour scott extract 1,000 mg 1,200 mg PO DAILY 06/16/23 Unknown History capsule (Tart Scott Extract) albuterol sulfate 90 mcg/actuation 2 puff inhalation Q4H PRN 11/17/23 Unknown Rx aerosol inhaler SHORTNESS OF BREATH #8.5 grams flash glucose sensor (FreeStyle #6 ea 01/18/24 Unknown Rx Garett 2 Sensor kit) diltiazem HCl 180 mg capsule,24 180 mg PO DAILY BLOOD PRESSURE 03/21/24 Unknown Rx hr,extended release (Tiazac) #90 caps guaifenesin 1,200 mg tablet, 1,200 mg PO BID CONGESTION #0 tabs 04/18/24 Unknown Rx extended release 12 hr (Mucus Relief ER) insulin lispro 100 unit/mL 12 unit (0.12 mL) subcut 04/18/24 Unknown Rx subcutaneous pen (Humalog KwikPen 0800,1200,1700 #0 mL (U-100) Insulin) insulin lispro 100 unit/mL See Protocol subcut TIDAC #0 mL 04/18/24 Unknown Rx subcutaneous pen (Humalog KwikPen (U-100) Insulin) oxycodone 5 mg tablet 2.5 - 5 mg (0.5 - 1 x 5 mg) PO Q4H 04/18/24 Unknown Rx PRN PRN Pain Score 4-10 3 days #10 tabs sennosides 8.6 mg-docusate sodium 2 tab PO BID #0 tabs 04/18/24 Unknown Rx 50 mg tablet (Stool Softener-Stimulant Laxative) tizanidine 2 mg tablet 2 mg PO Q8 PRN Muscle Spasm #0 tabs 04/18/24 Unknown Rx acetaminophen 500 mg tablet 1,000 mg PO Q8H PAIN 05/03/24 Unknown History carvedilol 6.25 mg tablet 6.25 mg PO BID blood pressure 05/03/24 Unknown History insulin aspart U-100 100 unit/mL subcut 05/03/24 Unknown History (3 mL) subcutaneous pen (Novolog FlexPen U-100 Insulin aspart) polyethylene glycol 3350 17 17 g PO DAILY constipation 05/03/24 Unknown History gram/dose oral powder sitagliptin phosphate 25 mg tablet 25 mg PO DAILY diabetes 05/03/24 Unknown History (Januvia) torsemide 20 mg tablet 20 mg PO DAILY water pill 05/03/24 Unknown History Allergy/AdvReac Type Severity Reaction Status Date / Time doxycycline Allergy Intermediate GI problems Verified 05/03/24 14:28 clindamycin Allergy Rash Verified 05/03/24 14:28 insulin detemir (From Allergy Rash Verified 05/03/24 14:28 Levemir U-100 Insulin) ciprofloxacin AdvReac Mild Upset Verified 05/03/24 14:28 Stomach amoxicillin trihydrate (From AdvReac Nausea Verified 05/03/24 14:28 Augmentin) potassium clavulanate (From AdvReac Nausea Verified 05/03/24 14:28 Augmentin) Family History Father Hypertension Colon cancer Cancer lung Mother Hypertension Heart disease Diabetes Other Hypercholesterolemia Melanoma Surgical History History of right and left heart catheterization (05/04/20) History of cholecystectomy History of laminectomy History of knee replacement procedure of left knee Social History Smoking Status: Former smoker how long ago did patient quit smokin years ago alcohol intake: never substance use type: does not use caffeine: Yes Type: coffee Number of servings: 2 additional social history: Uses aspirin. Does not use ibuprofen. ROS Constitutional Constitutional: Denies anorexia, chills, fatigue, fever(s) or malaise Eyes Eyes: Denies change in vision ENT HEENT: Denies dysphagia or headache(s) Cardiovascular Cardiovascular: Denies chest pain, dyspnea on exertion, lightheadedness, orthopnea, palpitations, paroxysmal nocturnal dyspnea or rapid heart rate Respiratory/Chest Respiratory/Chest: Reports productive cough, shortness of breath at rest and shortness of breath with exertion; Denies cough, dyspnea or wheezing Gastrointestinal Gastrointestinal: Denies abdominal pain, constipation, diarrhea, nausea or vomiting Genitourinary Genitourinary: Denies burning urination, dysuria or hematuria Neurologic Neurologic: Denies confusion, disequilibrium, dizziness, focal weakness, headache(s) or numbness Psychiatric Psychiatric: Denies anxiety or depression Hematologic/Lymphatic Hematologic/Lymphatic: Denies anemia Vital Signs Vital Signs Vital Signs: 05/03/24 11:33 05/03/24 11:44 05/03/24 11:45 Temperature 96 F L Temperature Source Temporal Pulse Rate 75 Respiratory Rate 22 H Respiratory Effort Normal Non-Labored Respiratory Depth Normal Respiratory Pattern Normal Blood Pressure 108/62 Blood Pressure Mean 77 Pulse Ox 94 Oxygen Delivery Method Nasal Cannula Nasal Cannula Nasal Cannula Oxygen Flow Rate (L/min) 4 4 4 05/03/24 12:32 Temperature Temperature Source Pulse Rate 70 Respiratory Rate 18 Respiratory Effort Respiratory Depth Respiratory Pattern Blood Pressure 125/56 H Blood Pressure Mean 79 Pulse Ox 96 Oxygen Delivery Method Nasal Cannula Oxygen Flow Rate (L/min) 4 Weight Weight: 230 lb 9.656 oz Body Mass Index (BMI) 46.5 Physical Exam Const alert, oriented x3 and no apparent distress Constitutional Narrative: morbid obesity HEENT normocephalic, head/scalp atraumatic, hearing grossly normal bilaterally, moist oral mucous membranes and oropharynx normal Mouth: oral and palatal mucosa normal Eyes PERRL, EOMs intact bilaterally and conjunctivae normal Resp Resp Narrative: moderately diminished breath sounds bibasally, no wheezes or crackles. On 4L of oxygen by nasal canula Cardio regular rate, regular rhythm, S1 normal heart sound, S2 normal heart sound and no murmurs GI normal to inspection, nondistended, normoactive bowel sounds, soft to palpation, non-tender and non-distended Extremity normal to inspection, full ROM and no clubbing, cyanosis or edema Neuro oriented x3, CN's II-XII intact bilaterally, moves all extremities and no focal motor deficits Sensorium / Orientation: awake and alert Motor Exam: strength 5/5 throughout Psych affect normal Results Lab / Micro Data 05/03/24 11:50 05/03/24 11:50 Labs: Laboratory Results - last 24 hr 05/03/24 11:50: WBC 8.5, RBC 3.24 L, Hgb 9.7 L, Hct 32.2 L, MCV 99.4 H, MCH 29.9, MCHC 30.1 L, RDW Std Deviation 54.7 H, RDW Coeff of Jazzmine 14.9 H, Plt Count 273, MPV 9.6, Immature Gran % (Auto) 0.900, Neut % (Auto) 75.7 H, Lymph % (Auto) 6.8 L, [place] % (Auto) 13.3 H, Eos % (Auto) 2.8, Baso % (Auto) 0.5, Absolute Neuts (auto) 6.5, Absolute Lymphs (auto) 0.58 L, Nucleated RBC % 0, Sodium 139, Potassium 4.0, Chloride 103, Carbon Dioxide 32.0, Anion Gap 4 L, BUN 36 H, C reatinine 1.63 H, Estim Creat Clear Calc 33.55, Est GFR (MDRD) Af Amer 40 L, Est GFR (MDRD) Non-Af 33 L, BUN/Creatinine Ratio 22.1 H, Glucose 132 H, Calcium 10.3 H, Troponin I High Sens 20, B-Natriuretic Peptide 145.2 H ABG Data ABG results: ABG 05/03/24 12:55 Specimen Type KURT Sample Site Not entered O2 % 4.0 VBG pH 7.43 H VBG pO2 43 H VBG HCO3 36 H VBG Total CO2 37 H VBG O2 Sat (Calc) 79 H VBG Base Excess 11 H POC Mix VBG pCO2 Pt Tmp 54.4 H O2 Delivery Device Cannula Imaging Radiology Impression Chest X-Ray 05/03/24 12:06 IMPRESSION: Findings suggestive of a CHF as compared to prior study. Cardiomegaly. Electronically Signed: Anam Larios MD at 12:20 EDT , Assessment & Plan Assessment/Plan (1) Acute heart failure with preserved ejection fraction: PLAN: Plan #Hypoxia due to Acute exacerbation of heart failure with preserved EF * admit to PCU. Has been feeling short of breath for several days. Beatriz oxygen was dropping to 80s even on her 4L of oxygen. * BNP was 154 but CXR showed evidence of fluid overload. * start on IV lasix 40mg bid; hold home torsemide. * EKG showed no acute ST changes * monitor intake and output. Fluid restriction to 1500cc daily * 2D echo from October 2023 showed EF of 55% with stage I diastolic dysfunction and mild concentric left ventricular hypertrophy * #Paroxysmal A-fib: On Cardizem and carvedilol. Not on any blood thinners. Likely due to previous history of left flank hematoma and risk of falls. #Type 2 diabetes mellitus: On Lantus 38 units nightly. Insulin sliding scale. Accu-Cheks ACHS. Also on Sitagliptin. #Chronic hypoxic respiratory failure due to COPD: On 4 L of oxygen at home. On breathing treatments of bronchodilators. Titrate oxygen to maintain saturation above 90%. #Hyperlipidemia: on fenofibrate #CKD IV: Cr is 1.63, which is around her baseline from 04/2023. #Hypertension: on carvedilol. IV hydralazine prn #GERD: on PPI DVT prophylaxis: Lovenox CODE STATUS: full code * Patient counseled extensively about different types of CODE STATUS including full code, DNR CCA and DNR CCA. Patient elects to be full code. Total [id number] time 16 minutes. Charges/Coding Visit Charges Inpatient E&M: 10235 Init Hosp L3 Procedures Hospitalists Procedures: 56648 Advncd Care Plan 30 Min
[2024-05-03 16:58] LABS: Troponin-I HS 21 pg/mL (3.0-54.0)
[2024-05-03] MEDS: Furosemide 40 MG/4 ML Vial IV (17:16)
[2024-05-03 17:23] LABS: Bedside Glucose 146 mg/dL (74-106)
[2024-05-03 18:28] LABS: Troponin-I HS 22 pg/mL (3.0-54.0)
[2024-05-03] MEDS: Ipratropium/Albuterol Sulfate 3 ML AMPUL.NEB INHALATION (19:28)
[2024-05-03] MEDS: Insulin Lispro 100 UNIT/ML INSULN.PEN SC (20:31)
[2024-05-03] MEDS: Acetaminophen 325 MG Tablet 650 MG PO (20:32)
[2024-05-03] MEDS: guaiFENesin 1,200 MG Tablet 1200 MG PO (20:32)
[2024-05-03] MEDS: Carvedilol 6.25 MG Tablet PO (20:32)
[2024-05-03] MEDS: Insulin Glargine-YFGN 100 UNIT/ML Pen 38 UNIT SC (20:34)
[2024-05-04] VITALS (14 sets, daily range): BP systolic 111–166; BP diastolic 46–58; PULSE 71–82; RESP 16–19; TEMP 36.7–37.4; O2SAT 94–97
[2024-05-04] MEDS: Ipratropium/Albuterol Sulfate 3 ML AMPUL.NEB INHALATION ×4 (00:56→19:58)
[2024-05-04] MEDS: hydrALAZINE 20 MG/ML Vial 10 MG IV (02:58)
[2024-05-04] MEDS: Acetaminophen 325 MG Tablet 650 MG PO ×2 (06:07→15:04)
[2024-05-04 06:10] LABS: Absolute Lymphocyte Count 0.78 X10^3/uL (0.83-4.51); Absolute Neutrophil Count 6.3 X10^3/uL (2.0-7.7); Basophil# 0.03 X10^3/uL; Basophil% 0.4 % (0-1); Eosinophil# 0.31 X10^3/uL; Eosinophils% 3.7 % (0-5); Hematocrit 33.5 % (37-47); Hemoglobin 10.1 g/dL (12.0-15.0); Lymphocyte # 0.78 X10^3/ul (0.83-4.51); Lymphocyte % 9.4 % (19-41); Mean Corp Hgb Conc 30.1 g/dL (32-36); Mean Corpuscular Hgb 29.8 pg (27.0-32.0); Mean Corpuscular Volume 98.8 fL (81-99); Mean Platelet Vol. 9.2 fl (6.2-12.0); Monocyte# 0.85 X10^3/uL; Monocyte% 10.2 % (0-10); NRBC Flagged by Analyzer 0 % (0-5); Neutrophil # 6.27 X10^3/uL (2.7-7.7); Neutrophil % 75.3 % (47-70); Platelet Count 291 K/mm3 (150-450); RBC Distribution Width CV 14.8 % (11.6-14.6); RBC Distribution Width SD 53.8 fl (35.1-43.9); Red Blood Count 3.39 M/mm3 (4.2-5.4); White Blood Count 8.3 K/mm3 (4.4-11.0)
[2024-05-04] MEDS: Budesonide Respules 0.5 MG/2 ML AMPUL.NEB. INHALATION ×2 (07:16→19:58)
[2024-05-04] MEDS: Pantoprazole Sodium 40 MG Tablet PO (08:24)
[2024-05-04] MEDS: Carvedilol 6.25 MG Tablet PO ×2 (08:24→21:00)
[2024-05-04] MEDS: Furosemide 40 MG/4 ML Vial IV ×2 (08:25→17:12)
[2024-05-04] MEDS: dilTIAZem CD 180 MG Capsule PO (08:25)
[2024-05-04] MEDS: traMADol 50 MG Tablet PO ×2 (08:29→21:07)
[2024-05-04] MEDS: Ondansetron 4 MG/2 ML Vial IV (08:30)
[2024-05-04 08:56] LABS: Anion Gap 6 (5-15); BUN 32 mg/dL (7-18); BUN/Creat Ratio 19.9 RATIO (10-20); Calcium,Total 11.1 mg/dL (8.5-10.1); Chloride 100 mmol/L (98-107); Creatinine, Serum 1.61 mg/dL (0.55-1.02); EST Glomerular Filtration Rate 33 mL/min (>60); Est Glom Filt Rate - Afr Amer 40 mL/min (>60); Estimated Creatinine Clearance 33.12 ml/min; Glucose 117 mg/dL (74-106); Potassium 3.6 mmol/L (3.5-5.1); Sodium Level 140 mmol/L (136-145)
[2024-05-04] MEDS: Febuxostat 40 MG TABLET PO (10:14)
[2024-05-04] MEDS: LINAGLIPTIN 5 MG TABLET PO (10:14)
[2024-05-04] MEDS: Loratadine 10 MG Tablet PO (10:15)
[2024-05-04] MEDS: Aspirin E.C. 81 MG Tablet PO (10:15)
[2024-05-04] MEDS: Vibegron 75 MG TABLET PO (10:15)
--- NOTE | 2024-05-04 12:00 | NURSING ---
Pt checked blood sugar at this time with raymond, blood sugar at this time is 139.
[2024-05-04] MEDS: Polyethylene Glycol 3350 17 GM PACKET PO (12:04)
[2024-05-04] MEDS: guaiFENesin 1,200 MG Tablet 1200 MG PO ×2 (12:04→21:00)
--- NOTE | 2024-05-04 12:06 | PN.HOSP_ITS ---
Subjective Subjective Doing well, no issues overnight. Still maintaining oxygen saturations on 4 L nasal cannula Objective Data Objective Data Vital Signs: Vital Signs Temp Pulse Resp BP Pulse Ox O2 Del Method O2 Flow Rate 98.1 F 82 16 111/56 L 97 Nasal Cannula 4 05/04/24 08:22 05/04/24 08:22 05/04/24 08:22 05/04/24 08:22 05/04/24 08:22 05/04/24 08:30 05/04/24 08:30 Oxygen Flow Rate (L/min) 4 Oxygen Delivery Method Nasal Cannula Weight: 221 lb 1.978 oz Body Mass Index (BMI) 44.6 Intake & Output: Intake and Output for Last 24 Hours 05/03/24 05/04/24 05/05/24 03:59 03:59 03:59 Intake Total 400 / 400 0 / 0 Output Total 2400 / 2400 1100 / 1100 Balance -1999 / -2000 -1100 / -1100 Lab / Micro Data 05/04/24 05:41 05/04/24 05:41 Labs: Laboratory Results - last 24 hr 05/03/24 11:50: WBC 8.5, RBC 3.24 L, Hgb 9.7 L, Hct 32.2 L, MCV 99.4 H, MCH 29.9, MCHC 30.1 L, RDW Std Deviation 54.7 H, RDW Coeff of Jazzmine 14.9 H, Plt Count 273, MPV 9.6, Immature Gran % (Auto) 0.900, Neut % (Auto) 75.7 H, Lymph % (Auto) 6.8 L, Dickenson % (Auto) 13.3 H, Eos % (Auto) 2.8, Baso % (Auto) 0.5, Absolute Neuts (auto) 6.5, Absolute Lymphs (auto) 0.58 L, Nucleated RBC % 0, Sodium 139, Potassium 4.0, Chloride 103, Carbon Dioxide 32.0, Anion Gap 4 L, BUN 36 H, C reatinine 1.63 H, Estim Creat Clear Calc 33.55, Est GFR (MDRD) Af Amer 40 L, Est GFR (MDRD) Non-Af 33 L, BUN/Creatinine Ratio 22.1 H, Glucose 132 H, Calcium 10.3 H, Troponin I High Sens 20, B-Natriuretic Peptide 145.2 H 05/03/24 16:20: Troponin I High Sens 21 05/03/24 16:21: POC Glucose 146 H 05/03/24 17:44: Troponin I High Sens 22 05/04/24 05:41: WBC 8.3, RBC 3.39 L, Hgb 10.1 L, Hct 33.5 L, MCV 98.8, MCH 29.8, MCHC 30.1 L, RDW Std Deviation 53.8 H, RDW Coeff of Jazzmine 14.8 H, Plt Count 291, MPV 9.2, Immature Gran % (Auto) 1.000 H, Neut % (Auto) 75.3 H, Lymph % (Auto) 9.4 L, Dickenson % (Auto) 10.2 H, Eos % (Auto) 3.7, Baso % (Auto) 0.4, Absolute Neuts (auto) 6.3, Absolute Lymphs (auto) 0.78 L, Nucleated RBC % 0, Sodium 140, Potassium 3.6, Chloride 100, Carbon Dioxide 34.0 H, Anion Gap 6, BUN 32 H, C reatinine 1.61 H, Estim Creat Clear Calc 33.12, Est GFR (MDRD) Af Amer 40 L, Est GFR (MDRD) Non-Af 33 L, BUN/Creatinine Ratio 19.9, Glucose 117 H, Calcium 11.1 H Micro: Microbiology 05/03/24 12:50 Mucosa - Nasopharyngeal SARS-CoV-2, Influenza & RSV (PCR) - Final ABG Data ABG results: ABG 05/03/24 12:55 Specimen Type KURT Sample Site Not entered O2 % 4.0 VBG pH 7.43 H VBG pO2 43 H VBG HCO3 36 H VBG Total CO2 37 H VBG O2 Sat (Calc) 79 H VBG Base Excess 11 H POC Mix VBG pCO2 Pt Tmp 54.4 H O2 Delivery Device Cannula Radiography Diagnostic Testing: Radiology Impression Chest X-Ray 05/03/24 12:06 IMPRESSION: Findings suggestive of a CHF as compared to prior study. Cardiomegaly. Electronically Signed: Anam Larios MD at 12:20 EDT , Physical Exam Narrative General: Alert, Oriented x3, Cooperative, No apparent distress HEENT: Atraumatic, PERRLA, EOMI, Normocephalic Oral: Moist Mucosa Neck: Supple, No JVD Lungs: Diminished, Normal air movement, No rhonchi, No wheeze, No rales Cardiovascular: Regular rate, Regular Rhythm, Normal S1, Normal S2, No murmurs Abdomen: Soft, Non Tender, Non-Distended, No Hepato-splenomegaly Extremities: Trace edema, Capillary Refill Less than 3 Seconds Skin: No rashes, No breakdown Musculoskeletal: No Tenderness to Palpation of Joints or Extremities Neurological: No focal neurological deficits, Motor Exam 5/5 strength throughout, Sensory exam intact to light touch and pain Psych/Mental Status: Normal Affect, Appropriate Assessment & Plan Assessment/Plan (1) Acute heart failure with preserved ejection fraction: PLAN: Plan 1. Hypoxia secondary to acute on chronic diastolic CHF/paroxysmal A- fib/essential HTN/HLD ? BNP was slightly elevated to 154 and chest x-ray was consistent with volume overload ? Continue with IV Lasix ? Echo in 2022 with an EF of 55% stage I diastolic dysfunction ? Continue with her blood pressure medications, she is not on any anticoagulation for her A-fib secondary to fall risk and previous left flank hematoma ? Continue with her cholesterol medications ? We will monitor make adjustments as necessary 2. Chronic hypoxic respiratory failure secondary to COPD ? Baseline oxygen requirements of 4 L nasal cannula at home ? Currently on 4 L, will monitor 3. DM2 with CKD 4 ? Continue with insulin ? Accu-Cheks ACHS ? We will monitor make adjustments as necessary ? Renal function appears to be at baseline 4. GERD ? Stable ? Continue with PPI DVT: Lovenox Charges/Coding Visit Charges Inpatient E&M: 47032 Subs Hosp L2
--- NOTE | 2024-05-04 13:31 | CASEMGMT ---
Index: 04/15/24-04/18/24. Dx: Debility, Pneumonia Readmission: 05/03/24. Dx: Acute HF On index admission, pt was discharged to the [facility]. Pt states to this RN CM that she did not enjoy her experience there as she left the facility early. Pt was then set up with [facility]. was unable to come to see the pt at home as she came into the hospital before being seen. Pt also wears 4L of oxygen continuously through [facility] (this was verified by Sarah - the [facility] tax representative). Pt re-presents to [facility] with SOB. Pt states that she was able to wear her oxygen accordingly. Pt was then admitted to PCU for management of the hypoxia and HF. Pt 6-Click score is currently 18. Moving forward, the pt states that once she is medically ready she would like to DC home with [facility] (SN, PT, and OT). A referral was made to [place] from [facility] who stated that they can accept the pt again. SOC date TBD. CM to follow for safe DC from [facility].
--- NOTE | 2024-05-04 16:08 | NURSING ---
Pts sugar 148 according to own raymond at this time.
[2024-05-04] MEDS: Benzonatate 100 MG Capsule PO ×2 (16:10→21:08)
[2024-05-04] MEDS: Fenofibrate 145 MG Tablet PO (16:11)
[2024-05-04] MEDS: Montelukast 10 MG Tablet PO (16:11)
[2024-05-04] MEDS: Menthol/Lanolin/Calamine/Znox 113 GM Tube 1 APPLIC TOPICAL (21:00)
[2024-05-04] MEDS: 0.9% Saline Lock 10 ML Syringe IV (21:08)
[2024-05-04] MEDS: Insulin Glargine-YFGN 100 UNIT/ML Pen 38 UNIT SC (21:08)
[2024-05-04 22:11] LABS: Bedside Glucose 132 mg/dL (74-106)
[2024-05-05] VITALS (7 sets, daily range): BP systolic 111–126; BP diastolic 45–53; PULSE 70–79; RESP 16–20; TEMP 36.2–36.9; O2SAT 89–97; BMI 44.4
[2024-05-05] MEDS: Ipratropium/Albuterol Sulfate 3 ML AMPUL.NEB INHALATION ×3 (00:45→12:54)
[2024-05-05 06:25] LABS: Absolute Lymphocyte Count 0.63 X10^3/uL (0.83-4.51); Absolute Neutrophil Count 5.1 X10^3/uL (2.0-7.7); Basophil# 0.02 X10^3/uL; Basophil% 0.3 % (0-1); Eosinophils% 4.3 % (0-5); Hematocrit 29.5 % (37-47); Hemoglobin 8.8 g/dL (12.0-15.0); Lymphocyte # 0.63 X10^3/ul (0.83-4.51); Lymphocyte % 9.1 % (19-41); Mean Corp Hgb Conc 29.8 g/dL (32-36); Mean Corpuscular Hgb 29.9 pg (27.0-32.0); Mean Corpuscular Volume 100.3 fL (81-99); Mean Platelet Vol. 9.3 fl (6.2-12.0); Monocyte# 0.82 X10^3/uL; Monocyte% 11.8 % (0-10); NRBC Flagged by Analyzer 0 % (0-5); Neutrophil # 5.13 X10^3/uL (2.7-7.7); Neutrophil % 73.6 % (47-70); Platelet Count 240 K/mm3 (150-450); RBC Distribution Width CV 15.1 % (11.6-14.6); RBC Distribution Width SD 55.4 fl (35.1-43.9); Red Blood Count 2.94 M/mm3 (4.2-5.4)
--- NOTE | 2024-05-05 06:29 | NURSING ---
morning blood sugar checked with freestyle raymond
[2024-05-05 06:53] LABS: Anion Gap 3 (5-15); BUN 41 mg/dL (7-18); BUN/Creat Ratio 19.4 RATIO (10-20); Chloride 100 mmol/L (98-107); Creatinine, Serum 2.11 mg/dL (0.55-1.02); EST Glomerular Filtration Rate 24 mL/min (>60); Est Glom Filt Rate - Afr Amer 30 mL/min (>60); Estimated Creatinine Clearance 25.21 ml/min; Glucose 113 mg/dL (74-106); Sodium Level 138 mmol/L (136-145)
[2024-05-05] MEDS: Budesonide Respules 0.5 MG/2 ML AMPUL.NEB. INHALATION (07:04)
[2024-05-05] MEDS: Polyethylene Glycol 3350 17 GM PACKET PO (09:06)
[2024-05-05] MEDS: traMADol 50 MG Tablet PO (09:06)
[2024-05-05] MEDS: Loratadine 10 MG Tablet PO (09:06)
[2024-05-05] MEDS: Pantoprazole Sodium 40 MG Tablet PO (09:06)
[2024-05-05] MEDS: Aspirin E.C. 81 MG Tablet PO (09:07)
[2024-05-05] MEDS: dilTIAZem CD 180 MG Capsule PO (09:07)
[2024-05-05] MEDS: Carvedilol 6.25 MG Tablet PO (09:07)
[2024-05-05] MEDS: LINAGLIPTIN 5 MG TABLET PO (09:07)
[2024-05-05] MEDS: Febuxostat 40 MG TABLET PO (09:07)
[2024-05-05] MEDS: Vibegron 75 MG TABLET PO (09:08)
--- NOTE | 2024-05-05 11:48 | DCINST_ITS ---
Discharge Instructions Diet Discharge Diet: Low fat / Low cholesterol, 6 Cup Fluid Restriction and Carb Control Diet Activity Discharge Activity: Return to Normal Activity Dressing / Incision Call your doctor if you observe: Fever of 101 or Higher, Shortness of breath, Dizziness, Fainting spells, Swelling in the ankles, Chest pain and Increased palpitations (irregular heartbeat) Follow Up Care Test Results: Test results from this visit will be discussed in further detail at your follow- up appointment, if applicable. Discharge Plan Admission Admit Date/Time: 05/03/24 13:28 Attending Provider: Calvin Rush Primary Care Provider: Veronica Oquendo Consulting Providers: Shadia Watts Instructions Additional Instructions / Restrictions: Follow-up with your PCP as an outpatient to monitor your renal function on the day of discharge her creatinine was 2.11, you can restart her torsemide tomorrow. Discharge Orders/Prescriptions Prescriptions: Continued fluticasone propion-salmeterol [Advair Diskus] 500-50 mcg/dose blister with device 1 inh INHALATION BID aspirin 81 mg tablet,delayed release (DR/EC) 81 mg PO DAILY Qty: 1 0RF levalbuterol HCl 0.63 mg/3 mL solution for nebulization 0.63 mg inhalation Q6H PRN (Reason: WHEEZING ) insulin glargine 100 unit/mL (3 mL) insulin pen 38 unit SC QPM budesonide 0.5 mg/2 mL suspension for nebulization 0.5 mg inhalation BID PRN (Reason: BREATHING) fenofibrate nanocrystallized [Tricor] 145 mg tablet 145 mg PO .daily with dinner tramadol 50 mg tablet 50 mg PO Q12H omeprazole 20 mg capsule,delayed release(DR/EC) 20 mg PO DAILY mecobalamin (vitamin B12) 1,000 mcg tablet,chewable 1,000 mcg PO DAILY Acidophilus Capsule 10 mg PO DAILY Linzess 145 mcg capsule 145 mcg PO DAILY Tart Scott Extract 1,000 mg capsule 1,200 mg PO DAILY fluticasone propionate 1 SPRAY spray,suspension 2 spray NASAL DAILY PRN PRN (Reason: NASAL CONGESTION ) febuxostat [Uloric] 40 MG tablet 40 mg PO DAILY pantoprazole 40 mg tablet,delayed release (DR/EC) 40 mg PO DAILY loratadine [Claritin] 10 mg Tablet 10 mg PO DAILY mirabegron [Myrbetriq] 50 mg Tablet Extended Release 24 Hr 50 mg PO DAILY Spiriva Respimat 1.25 mcg/actuation Mist 2 puff INHALATION DAILY montelukast [Singulair] 10 mg Tablet 10 mg PO .daily with dinner albuterol sulfate 90 mcg/actuation HFA aerosol inhaler 2 puff INHALATION Q4H PRN (Reason: SHORTNESS OF BREATH ) Qty: 8.5 0RF tizanidine 2 mg Tablet 2 mg PO Q8 PRN (Reason: Muscle Spasm) Qty: 0 0RF sennosides-docusate sodium [Stool Softener-Stimulant Laxat] 8.6-50 mg Tablet 2 tab PO BID Qty: 0 0RF insulin lispro [Humalog KwikPen Insulin] 100 unit/mL Insulin Pen See Protocol subcut TIDAC Qty: 0 0RF Protocol: 3. Sliding Scale Insulin Med Dosing Condition: 150-189 mg/dl = 1 unit Condition: 190-229 mg/dl = 2 units Condition: 230-269 mg/dl = 3 units Condition: 270-309 mg/dl = 4 units Condition: 310-349 mg/dl = 5 units Condition: 350-399 mg/dl = 6 units Condition: 400-449 mg/dl = 7 units Condition: Greater than 449 call physician Protocol Text: - Use for Total Daily Dose of Insulin 37-55 units - Obsese, infected, or steroid patients MEDIUM DOSING ALGORITHIM insulin lispro [Humalog KwikPen Insulin] 100 unit/mL Insulin Pen 12 unit subcut 0800,1200,1700 Qty: 0 0RF guaifenesin [Mucus Relief ER] 1,200 mg Tablet Extended Release 12hr 1,200 mg PO BID Qty: 0 0RF carvedilol 6.25 mg tablet 6.25 mg PO BID torsemide 20 mg tablet 20 mg PO DAILY Rx Instructions: TAKE 1 TABLET BY MOUTH DAILY unless weight has increased by 2 (TWO) pounds or more, then take second tablet polyethylene glycol 3350 17 gram/dose powder 17 g PO DAILY insulin aspart U-100 [Novolog FlexPen U-100 Insulin] 100 unit/mL (3 mL) insulin pen subcut Januvia 25 mg tablet 25 mg PO DAILY acetaminophen 500 mg Tablet 1,000 mg PO Q8H (DME) pen needle, diabetic [BD Ultra-Fine Sonam Pen Needle] 32 gauge x 5/32 needle See Rx Instructions .ROUTE .MEDSUPPLY Qty: 400 3RF Rx Instructions: 4times daily (DME) FreeStyle Garett 2 Sensor Kit See Rx Instructions .ROUTE .MEDSUPPLY Qty: 6 3RF Rx Instructions: 1 sensor q 14 days diltiazem HCl [Tiazac] 180 mg capsule,extended release 24 hr 180 mg PO DAILY Qty: 90 3RF Referrals / Follow Up: Veronica Oquendo DO [Primary Care Provider] - Within 1 Week Disposition Disposition (needs filled in before D/C Order can be placed): Home, Self Care
--- NOTE | 2024-05-05 12:10 | CASEMGMT ---
Order for DC placed. TC to [facility] and [place] states that they can start care tomorrow, 05/06/24. Pt current O2 order states 4L continuous ([facility]). Per the testing coordinator, pt did not qualify for an increased demand. RN CM to pt room at this time. Pt states that her is going to bring in a portable tank for the pt to go home on. Pt updated on SOC date. CM DC information/ plan updated. Pt denies further questions or concerns and is ready for DC.
[2024-05-05 12:53] LABS: Bedside Glucose 136 mg/dL (74-106)
[2024-05-05] MEDS: guaiFENesin 1,200 MG Tablet 1200 MG PO (13:05)
--- NOTE | 2024-05-05 14:13 | DS.PCM_ITS ---
Providers Date of Admission: 05/03/24 Primary Care Physician: Dr. Veronica Oquendo, DO Reason For Visit: ACUTE HEART FAILURE Diagnosis Discharge Diagnosis (1) Acute heart failure with preserved ejection fraction: Status: Acute Code(s): I50.31 - Acute diastolic (congestive) heart failure Medications at Discharge Home Medications fluticasone propionate 50 mcg/actuation nasal spray,suspension 2 spray NASAL DAILY PRN PRN NASAL CONGESTION 06/21/17 febuxostat 40 mg tablet (Uloric) 40 mg PO DAILY GOUT 12/30/18 fluticasone 500 mcg-salmeterol 50 mcg/dose blistr powdr for inhalation (Advair Diskus) 1 inh inhalation BID SHORTNESS OF BREATH 07/17/20 aspirin 81 mg tablet,delayed release 81 mg PO DAILY HEART HEALTH #1 TAB 02/08/21 loratadine 10 mg tablet (Claritin) 10 mg PO DAILY ALLERGY 01/14/22 mirabegron 50 mg tablet,extended release 24 hr (Myrbetriq) 50 mg PO DAILY OVERACTIVE BLADDER 01/14/22 tiotropium bromide 1.25 mcg/actuation mist for inhalation (Spiriva Respimat) 2 puff inhalation DAILY sob 01/14/22 fenofibrate nanocrystallized 145 mg tablet (Tricor) 145 mg PO .daily with dinner CHOLESTEROL 10/16/22 insulin glargine 100 unit/mL (3 mL) subcutaneous pen 38 unit subcut QPM DIABETES 12/11/22 levalbuterol HCl 0.63 mg/3 mL solution for nebulization 0.63 mg inhalation Q6H PRN WHEEZING 12/11/22 pen needle, diabetic 32 gauge x 5/32 (BD Ultra-Fine Sonam Pen Needle) #400 ea 01/22/23 montelukast 10 mg tablet (Singulair) 10 mg PO .daily with dinner ASTHMA 02/22/23 omeprazole 20 mg capsule,delayed release 20 mg PO DAILY GERD 03/03/23 tramadol 50 mg tablet 50 mg PO Q12H pain 03/03/23 pantoprazole 40 mg tablet,delayed release 40 mg PO DAILY GERD 05/07/23 Lactobacillus acidophilus (Acidophilus capsule) 10 mg PO DAILY probiotic 06/16/23 budesonide 0.5 mg/2 mL suspension for nebulization 0.5 mg inhalation BID PRN BREATHING 06/16/23 linaclotide 145 mcg capsule (Linzess) 145 mcg PO DAILY IRRITABLE BOWELS 06/16/23 mecobalamin (vitamin B12) 1,000 mcg chewable tablet 1,000 mcg PO DAILY vitamin 06/16/23 sour scott extract 1,000 mg capsule (Tart Scott Extract) 1,200 mg PO DAILY supplement 06/16/23 albuterol sulfate 90 mcg/actuation aerosol inhaler 2 puff inhalation Q4H PRN SHORTNESS OF BREATH #8.5 grams 11/17/23 flash glucose sensor (FreeStyle Garett 2 Sensor kit) #6 ea 01/18/24 diltiazem HCl 180 mg capsule,24 hr,extended release (Tiazac) 180 mg PO DAILY BLOOD PRESSURE #90 caps 03/21/24 guaifenesin 1,200 mg tablet, extended release 12 hr (Mucus Relief ER) 1,200 mg PO BID CONGESTION #0 tabs 04/18/24 insulin lispro 100 unit/mL subcutaneous pen (Humalog KwikPen (U-100) Insulin) 12 unit (0.12 mL) subcut 0800,1200,1700 insulin #0 mL 04/18/24 insulin lispro 100 unit/mL subcutaneous pen (Humalog KwikPen (U-100) Insulin) See Protocol subcut TIDAC insulin #0 mL 04/18/24 sennosides 8.6 mg-docusate sodium 50 mg tablet (Stool Softener-Stimulant Laxative) 2 tab PO BID stool softner #0 tabs 04/18/24 tizanidine 2 mg tablet 2 mg PO Q8 PRN Muscle Spasm #0 tabs 04/18/24 acetaminophen 500 mg tablet 1,000 mg PO Q8H PAIN 05/03/24 carvedilol 6.25 mg tablet 6.25 mg PO BID blood pressure 05/03/24 insulin aspart U-100 100 unit/mL (3 mL) subcutaneous pen (Novolog FlexPen U-100 Insulin aspart) subcut insulin 05/03/24 polyethylene glycol 3350 17 gram/dose oral powder 17 g PO DAILY constipation 05/03/24 sitagliptin phosphate 25 mg tablet (Januvia) 25 mg PO DAILY diabetes 05/03/24 torsemide 20 mg tablet 20 mg PO DAILY water pill 05/03/24 Hospital Course Operations None Procedures None Summary of Care Provided Minutes Spent on Discharge: 34 Hospital Course: Per HPI: WALLACE BAZAN, is a 73 F with a PMH as outlined who presents via the ED on 05/03/2024 with a complaint of shortness of breath. Her shortness of breath had been going on for several days, and she had an associated cough productive of yellowish sputum. She denied chest pain but admitted to chest heaviness. Her shortness of breath worsened with exertion and her oxygen saturation dropped to the mid 80s. She denied any palpitations, nausea, vomiting, lower extremity edema or any other symptoms. Review of systems was otherwise negative. Vitals in the ED were Bp of 125/56, SC of 70, RR of 18 and oxygen sats of 96% on 4L of oxygen. CBC showed wbc of 8.5, hb of 9.7 and platelets of 273. Chemistry showed sodium of 139, potassium of 4, Cr of 1.63 and initial BNP of 145.2. CXR showed evidence of fluid overload and EKG showed no acute ST changes. She is being admitted to be managed for hypoxia in the setting of acute exacerbation of HFpEF. Hospital Course: 1. Hypoxia secondary to acute on chronic diastolic CHF in the setting of chronic hypoxic respiratory failure secondary to COPD/paroxysmal A-fib/essential HTN/HLD?73-year-old female presented to the hospital secondary to increasing shortness of breath for the last couple of days. She has been having a cough associated with it but denies and any chest pain, respiratory virus panel with COVID, flu, RSV was negative and no signs of a bacterial pneumonia. She was not requiring an increased amount of her baseline oxygen it was more of a subjective feeling of increased shortness of breath. She was started on IV Lasix as she is supposed to be on torsemide as an outpatient. She has had decent diuresis and is feeling much better today. She did have an ambulatory pulse ox which did not demonstrate a change in her baseline oxygen requirements of 4 L. I discussed with her the possibility of discharge today and she expressed understanding of the risk benefits of going home and would like to go home today. Her IV Lasix were held a today because of a slight increase in her creatinine to 2.11. She should be able to restart her torsemide tomorrow and she has instructions on 1 to take 1 tablet and 1 to take 2 from her primary care physician. I recommend that she follow-up with her PCP in 3 to 5 days. 2. Type 2 diabetes, chronic kidney disease stage IV, GERD are chronic medical conditions which complicate her care. Her home medications were continued where appropriate Physical Exam Narrative General: Alert, Oriented x3, Cooperative, No apparent distress HEENT: Atraumatic, PERRLA, EOMI, Normocephalic Oral: Moist Mucosa Neck: Supple, No JVD Lungs: Diminished, Normal air movement, No rhonchi, No wheeze, No rales Cardiovascular: Regular rate, Regular Rhythm, Normal S1, Normal S2, No murmurs Abdomen: Soft, Non Tender, Non-Distended, No Hepato-splenomegaly Extremities: Trace edema, Capillary Refill Less than 3 Seconds Skin: No rashes, No breakdown Musculoskeletal: No Tenderness to Palpation of Joints or Extremities Neurological: No focal neurological deficits, Motor Exam 5/5 strength throughout, Sensory exam intact to light touch and pain Psych/Mental Status: Normal Affect, Appropriate Weight / BMI Weight Weight: 220 lb 3.869 oz Body Mass Index (BMI) 44.4 ABG / Lab / Microbiology Data 05/05/24 05:40 05/05/24 05:40 Laboratory: Laboratory Results - last 24 hr 05/04/24 21:07: POC Glucose 132 H 05/05/24 05:40: WBC 7.0, RBC 2.94 L, Hgb 8.8 L, Hct 29.5 L, MCV 100.3 H, MCH 29.9, MCHC 29.8 L, RDW Std Deviation 55.4 H, RDW Coeff of Jazzmine 15.1 H, Plt Count 240, MPV 9.3, Immature Gran % (Auto) 0.900, Neut % (Auto) 73.6 H, Lymph % (Auto) 9.1 L, [place] % (Auto) 11.8 H, Eos % (Auto) 4.3, Baso % (Auto) 0.3, Absolute Neuts (auto) 5.1, Absolute Lymphs (auto) 0.63 L, Nucleated RBC % 0, Sodium 138, Potassium 4.0, Chloride 100, Carbon Dioxide 35.0 H, Anion Gap 3 L, BUN 41 H, C reatinine 2.11 H, Estim Creat Clear Calc 25.21, Est GFR (MDRD) Af Amer 30 L, Est GFR (MDRD) Non-Af 24 L, BUN/Creatinine Ratio 19.4, Glucose 113 H, Calcium 10.0 05/05/24 12:34: POC Glucose 136 H Microbiology: Microbiology 05/03/24 12:50 Mucosa - Nasopharyngeal SARS-CoV-2, Influenza & RSV (PCR) - Final D/C Instructions Discharge Diet: Low fat / Low cholesterol, 6 Cup Fluid Restriction and Carb Control Diet Call your doctor if you observe: Fever of 101 or Higher, Shortness of breath, Dizziness, Fainting spells, Swelling in the ankles, Chest pain and Increased palpitations (irregular heartbeat) Meaningful Use Info Meaningful Use Meaningful Use Diagnoses (Choose all that apply): None applicable Ischemic Stroke Statin Dosing Therapy Reference: STATIN DOSE THERAPY REFERENCE: * Patients > 75 years receive moderate or high dose statin therapy. * Patients 75 years or YOUNGER should receive HIGH intensity statin dose unless contraindicated. You will be required to document reason for non-treatment if statin daily dose does not meet guidelines. HIGH DOSE STATIN THERAPY DAILY Atorvastatin > than or = to 40 mg Rosuvastatin > than or = to 20 mg Amlodipine + Atorvastatin > than or = to 2.5/40 mg Ezetimibe + Simvastatin 10/80 mg Simvastatin 80mg Discharge Plan Admission Admit Date/Time: 05/03/24 13:28 Attending Provider: Calvin Rush Primary Care Provider: Veronica Oquendo Consulting Providers: Shadia Watts Instructions Additional Instructions / Restrictions: Follow-up with your PCP as an outpatient to monitor your renal function on the day of discharge her creatinine was 2.11, you can restart her torsemide tomorrow. Discharge Orders/Prescriptions Prescriptions: Continued fluticasone propion-salmeterol [Advair Diskus] 500-50 mcg/dose blister with device 1 inh INHALATION BID aspirin 81 mg tablet,delayed release (DR/EC) 81 mg PO DAILY Qty: 1 0RF levalbuterol HCl 0.63 mg/3 mL solution for nebulization 0.63 mg inhalation Q6H PRN (Reason: WHEEZING ) insulin glargine 100 unit/mL (3 mL) insulin pen 38 unit SC QPM budesonide 0.5 mg/2 mL suspension for nebulization 0.5 mg inhalation BID PRN (Reason: BREATHING) fenofibrate nanocrystallized [Tricor] 145 mg tablet 145 mg PO .daily with dinner tramadol 50 mg tablet 50 mg PO Q12H omeprazole 20 mg capsule,delayed release(DR/EC) 20 mg PO DAILY mecobalamin (vitamin B12) 1,000 mcg tablet,chewable 1,000 mcg PO DAILY Acidophilus Capsule 10 mg PO DAILY Linzess 145 mcg capsule 145 mcg PO DAILY Tart Scott Extract 1,000 mg capsule 1,200 mg PO DAILY fluticasone propionate 1 SPRAY spray,suspension 2 spray NASAL DAILY PRN PRN (Reason: NASAL CONGESTION ) febuxostat [Uloric] 40 MG tablet 40 mg PO DAILY pantoprazole 40 mg tablet,delayed release (DR/EC) 40 mg PO DAILY loratadine [Claritin] 10 mg Tablet 10 mg PO DAILY mirabegron [Myrbetriq] 50 mg Tablet Extended Release 24 Hr 50 mg PO DAILY Spiriva Respimat 1.25 mcg/actuation Mist 2 puff INHALATION DAILY montelukast [Singulair] 10 mg Tablet 10 mg PO .daily with dinner albuterol sulfate 90 mcg/actuation HFA aerosol inhaler 2 puff INHALATION Q4H PRN (Reason: SHORTNESS OF BREATH ) Qty: 8.5 0RF tizanidine 2 mg Tablet 2 mg PO Q8 PRN (Reason: Muscle Spasm) Qty: 0 0RF sennosides-docusate sodium [Stool Softener-Stimulant Laxat] 8.6-50 mg Tablet 2 tab PO BID Qty: 0 0RF insulin lispro [Humalog KwikPen Insulin] 100 unit/mL Insulin Pen See Protocol subcut TIDAC Qty: 0 0RF Protocol: 3. Sliding Scale Insulin Med Dosing Condition: 150-189 mg/dl = 1 unit Condition: 190-229 mg/dl = 2 units Condition: 230-269 mg/dl = 3 units Condition: 270-309 mg/dl = 4 units Condition: 310-349 mg/dl = 5 units Condition: 350-399 mg/dl = 6 units Condition: 400-449 mg/dl = 7 units Condition: Greater than 449 call physician Protocol Text: - Use for Total Daily Dose of Insulin 37-55 units - Obsese, infected, or steroid patients MEDIUM DOSING ALGORITHIM insulin lispro [Humalog KwikPen Insulin] 100 unit/mL Insulin Pen 12 unit subcut 0800,1200,1700 Qty: 0 0RF guaifenesin [Mucus Relief ER] 1,200 mg Tablet Extended Release 12hr 1,200 mg PO BID Qty: 0 0RF carvedilol 6.25 mg tablet 6.25 mg PO BID torsemide 20 mg tablet 20 mg PO DAILY Rx Instructions: TAKE 1 TABLET BY MOUTH DAILY unless weight has increased by 2 (TWO) pounds or more, then take second tablet polyethylene glycol 3350 17 gram/dose powder 17 g PO DAILY insulin aspart U-100 [Novolog FlexPen U-100 Insulin] 100 unit/mL (3 mL) insulin pen subcut Januvia 25 mg tablet 25 mg PO DAILY acetaminophen 500 mg Tablet 1,000 mg PO Q8H (DME) pen needle, diabetic [BD Ultra-Fine Sonam Pen Needle] 32 gauge x 5/32 needle See Rx Instructions .ROUTE .MEDSUPPLY Qty: 400 3RF Rx Instructions: 4times daily (DME) FreeStyle Garett 2 Sensor Kit See Rx Instructions .ROUTE .MEDSUPPLY Qty: 6 3RF Rx Instructions: 1 sensor q 14 days diltiazem HCl [Tiazac] 180 mg capsule,extended release 24 hr 180 mg PO DAILY Qty: 90 3RF Referrals / Follow Up: Veronica Oquendo DO [Primary Care Provider] - 05/11/24 8:00 am Disposition Disposition (needs filled in before D/C Order can be placed): Home, Self Care Charges/Coding Visit Charges Inpatient E&M: 92138 Disch Hosp >30min
--- NOTE | 2024-05-05 15:02 | CHAPLAIN ---
Type of Pastoral Visit _x__ Initial Visit ___ Follow-up Visit ___ On-call Visit ___ General Patient Visit ___ Spiritual Assessment ___ Family Conference ___ Bereavement ___ Rapid Response ___ Code Blue ___ Other (describe below) Pastoral Care Referral From _x__ Patient ___ Family ___ Nurse ___ Physician ___ Construction Equipment Mechanic Helper ___ Chemical Mixer ___ Other (describe below) Sacrament/Intervention _x__ Active listening ___ Anointing ___ Protestant ___ Bereavement ___ Communion ___ Calista exploration ___ ___ Life review ___ Prayer ___ Reconciliation ___ Sacrament of Sick ___ Supportive presence ___ Wedding ___ Other (describe below) Pastoral Comments patient has been seen before; pt is about to be discharged but time is given briefly for a prayer and updated status of her life and health; support given
== END 2024-05-05 14:58 | disposition home or self-care (01) | DRG 291 ==
LOC: ED 13:38 → PCU 05-04 07:11
PROVIDERS: Admitting Provider Student in an Organized Health Care Education/Training Program; Emergency Provider Emergency Medicine; PCP Internal Medicine; Visit Provider Family Medicine
DX: I13.0 Hypertensive heart and chronic kidney disease with heart failure and stage 1 through stage 4 chronic kidney disease, or unspecified chronic kidney disease (principal); N18.4 Chronic kidney disease, stage 4 (severe); J96.11 Chronic respiratory failure with hypoxia; I50.33 Acute on chronic diastolic (congestive) heart failure; J44.89 Other specified chronic obstructive pulmonary disease; I48.0 Paroxysmal atrial fibrillation; Z68.42 Body mass index [BMI] 45.0-49.9, adult; E66.01 Morbid (severe) obesity due to excess calories; E11.22 Type 2 diabetes mellitus with diabetic chronic kidney disease; Z79.4 Long term (current) use of insulin; K21.9 Gastro-esophageal reflux disease without esophagitis; E78.5 Hyperlipidemia, unspecified; M10.9 Gout, unspecified; Z79.51 Long term (current) use of inhaled steroids; Z79.82 Long term (current) use of aspirin; Z87.891 Personal history of nicotine dependence; N32.81 Overactive bladder; Z79.899 Other long term (current) drug therapy; Z99.81 Dependence on supplemental oxygen
CPT/HCPCS: 36415; 51702; 71045; 80048; 82803; 82962; 83880; 84484; 85025; 87631; 93005; 94640; 94668; 96374; 96375; 96376; 97162; 97166; 99221; 99252; 99285; A4216; G0378; G0463; J1940; J2405

== ENCOUNTER → 2024-05-20 | Outpatient (CLI) | payer MEDICARE, OTHER, SELFPAY ==
[2022-07-11 11:12] VITALS: BMI 40.4
[2024-05-20 10:41] LABS: Absolute Lymphocyte Count 0.54 X10^3/uL (0.83-4.51); Absolute Neutrophil Count 10.6 X10^3/uL (2.0-7.7); Basophil# 0.03 X10^3/uL; Basophil% 0.2 % (0-1); Eosinophil# 0.15 X10^3/uL; Eosinophils% 1.2 % (0-5); Hematocrit 31.4 % (37-47); Hemoglobin 9.3 g/dL (12.0-15.0); Lymphocyte # 0.54 X10^3/ul (0.83-4.51); Lymphocyte % 4.3 % (19-41); Mean Corp Hgb Conc 29.6 g/dL (32-36); Mean Corpuscular Hgb 29.9 pg (27.0-32.0); Mean Platelet Vol. 9.8 fl (6.2-12.0); Monocyte# 1.22 X10^3/uL; Monocyte% 9.6 % (0-10); NRBC Flagged by Analyzer 0 % (0-5); Neutrophil # 10.63 X10^3/uL (2.7-7.7); Neutrophil % 83.8 % (47-70); POSITIVE DIFFERENTIAL YES; Platelet Count 246 K/mm3 (150-450); RBC Distribution Width CV 14.8 % (11.6-14.6); RBC Distribution Width SD 54.9 fl (35.1-43.9); Red Blood Count 3.11 M/mm3 (4.2-5.4); White Blood Count 12.7 K/mm3 (4.4-11.0)
[2024-05-20 11:04] LABS: BNP,B-Type NATRIURETIC PEPTIDE 355.8 pg/mL (0-100)
[2024-05-20 11:05] LABS: ALB/GLOB Ratio 1.3 RATIO (0.9-2.4); AST(SGOT) 17 U/L (15-37); Alanine Aminotransfer ALT/SGPT 20 U/L (13-56); Albumin, Serum 3.3 g/dL (3.2-5.0); Alkaline Phosphatase 48 U/L (45-117); Anion Gap 6 (5-15); BUN 49 mg/dL (7-18); BUN/Creat Ratio 21.8 RATIO (10-20); Calcium,Total 10.1 mg/dL (8.5-10.1); Chloride 99 mmol/L (98-107); Creatinine, Serum 2.25 mg/dL (0.55-1.02); EST Glomerular Filtration Rate 23 mL/min (>60); Est Glom Filt Rate - Afr Amer 27 mL/min (>60); Globulin 2.6 g/dL (2.2-4.2); Glucose 199 mg/dL (74-106); Potassium 4.4 mmol/L (3.5-5.1); Protein, Total 5.9 g/dL (6.4-8.2); Sodium Level 139 mmol/L (136-145)
== END | disposition home or self-care (01) ==
LOC: LABSPEC 10:32
PROVIDERS: PCP Internal Medicine; Visit Provider Internal Medicine
DX: R11.2 Nausea with vomiting, unspecified (principal); I50.9 Heart failure, unspecified
CPT/HCPCS: 80053; 83880; 85025

== ENCOUNTER 2024-05-21 16:19 | Inpatient (IN) | payer MEDICARE, OTHER, SELFPAY ==
[2022-07-11 11:12] VITALS: BMI 40.4
[2024-05-21] VITALS (11 sets, daily range): BP systolic 107–145; BP diastolic 42–62; PULSE 49–83; RESP 18–24; TEMP 36.2–37.2; O2SAT 93–99; BMI 45.3; BMI 44.6
--- NOTE | 2024-05-21 16:33 | EKG12_ITS ---
Test Reason : SOB Blood Pressure : / mmHG Vent. Rate : 057 BPM Atrial Rate : 057 BPM P-R Int : 136 ms QRS Dur : 158 ms QT Int : 446 ms P-R-T Axes : 043 120 098 degrees QTc Int : 434 ms Sinus bradycardia with sinus arrhythmia Right bundle branch block Septal infarct , age undetermined Abnormal ECG Confirmed by Lobito Tolentino ([id number]), editorial manager ALIN HUNTER ([id number]) on 05/23/2024 9:40:13 AM Referred By: Confirmed By:Lobito Tolentino
--- NOTE | 2024-05-21 16:44 | EDS_ITS ---
HPI History of Present Illness Chief Complaint: Shortness of Breath Informant: patient Narrative Narrative: Patient is a 73-year-old female with history of proximal atrial fibrillation, hypertension, hyperlipidemia and wears 4 L of oxygen at baseline presenting with worsening shortness of breath and low oxygen level. states that he increased her oxygen over the weekend of 5 L but she still been short of breath. In addition patient states she is currently on Levaquin prescribed by her doctor but she is not entirely sure why and she is also told to hold her Lasix over the weekend because of blood work. Patient states that she has a cough is been nonproductive. She is complaining of chest tightness. Today her checked her pulse ox and it was in the 80s so 911 was called and she was brought to the emergency room. Patient is also been having a low-grade temperature the past few days. Denies any sputum production at this time. Is winded with her normal exertion. Is also complaining of left-sided back and rib pain that is worse with coughing but states that she also had a fall and that is where she injured herself last month. Patient did take some Tylenol prior to arrival. [facility] Medical History Melanoma High triglycerides Hearing problem Back problem Arthritis Lower extremity edema COVID-19 Osteoporosis Diabetes Secondary pulmonary arterial hypertension Muscle spasm Constipation Overactive bladder Gout Allergic rhinitis Osteoporosis Compression fracture of L1 vertebra Intractable low back pain Debility Venous insufficiency of both lower extremities Hyperuricemia GERD (gastroesophageal reflux disease) Morbid obesity Noncompliance with CPAP treatment Obstructive sleep apnea Chronic renal failure, stage 3 (moderate) Dysphagia Osteopenia Right bundle branch block (RBBB) Asthma Essential (primary) hypertension Paroxysmal atrial fibrillation Obesity (BMI 30-39.9) Pneumonia Lung abscess On home O2 Sarcoidosis Type 2 diabetes mellitus Chronic obstructive lung disease Hyperlipidemia Home Medications ?Medication ?Instructions ?Recorded ?Last Taken ?Type fluticasone propionate 50 2 spray NASAL DAILY PRN PRN NASAL 06/21/17 11/19/20 History mcg/actuation nasal CONGESTION spray,suspension febuxostat 40 mg tablet (Uloric) 40 mg PO DAILY GOUT 12/30/18 11/19/20 History fluticasone 500 mcg-salmeterol 50 1 inh inhalation BID SHORTNESS OF 07/17/20 11/19/20 History mcg/dose blistr powdr for BREATH inhalation (Advair Diskus) aspirin 81 mg tablet,delayed 81 mg PO DAILY HEART HEALTH #1 TAB 02/08/21 Unknown Rx release loratadine 10 mg tablet (Claritin) 10 mg PO DAILY ALLERGY 01/14/22 Unknown History mirabegron 50 mg tablet,extended 50 mg PO DAILY OVERACTIVE BLADDER 01/14/22 Unknown History release 24 hr (Myrbetriq) tiotropium bromide 1.25 2 puff inhalation DAILY sob 01/14/22 Unknown History mcg/actuation mist for inhalation (Spiriva Respimat) fenofibrate nanocrystallized 145 145 mg PO .daily with dinner 10/16/22 Unknown History mg tablet (Tricor) CHOLESTEROL insulin glargine 100 unit/mL (3 38 unit subcut QPM DIABETES 12/11/22 Unknown History mL) subcutaneous pen levalbuterol HCl 0.63 mg/3 mL 0.63 mg inhalation Q6H PRN WHEEZING 12/11/22 Unknown History solution for nebulization pen needle, diabetic 32 gauge x #400 ea 01/22/23 Unknown Rx (BD Ultra-Fine Sonam Pen Needle) montelukast 10 mg tablet 10 mg PO .daily with dinner ASTHMA 02/22/23 Unknown History (Singulair) omeprazole 20 mg capsule,delayed 20 mg PO DAILY GERD 03/03/23 Unknown History release tramadol 50 mg tablet 50 mg PO .COMPLEX PRN pain 03/03/23 Unknown History pantoprazole 40 mg tablet,delayed 40 mg PO DAILY GERD 05/07/23 Unknown History release Lactobacillus acidophilus 10 mg PO DAILY probiotic 06/16/23 Unknown History (Acidophilus capsule) budesonide 0.5 mg/2 mL suspension 0.5 mg inhalation BID PRN BREATHING 06/16/23 Unknown History for nebulization linaclotide 145 mcg capsule 145 mcg PO DAILY IRRITABLE BOWELS 06/16/23 Unknown History (Linzess) mecobalamin (vitamin B12) 1,000 1,000 mcg PO DAILY vitamin 06/16/23 Unknown History mcg chewable tablet sour scott extract 1,000 mg 1,200 mg PO DAILY supplement 06/16/23 Unknown History capsule (Tart Scott Extract) flash glucose sensor (FreeStyle #6 ea 01/18/24 Unknown Rx Garett 2 Sensor kit) diltiazem HCl 180 mg capsule,24 180 mg PO DAILY BLOOD PRESSURE 03/21/24 Unknown Rx hr,extended release (Tiazac) #90 caps sennosides 8.6 mg-docusate sodium 2 tab PO BID stool softner #0 tabs 04/18/24 Unknown Rx 50 mg tablet (Stool Softener-Stimulant Laxative) carvedilol 6.25 mg tablet 6.25 mg PO BID blood pressure 05/03/24 Unknown History insulin aspart U-100 100 unit/mL See Rx Instructions subcut 05/03/24 Unknown History (3 mL) subcutaneous pen (Novolog .COMPLEX insulin FlexPen U-100 Insulin aspart) polyethylene glycol 3350 17 17 g PO DAILY constipation 05/03/24 Unknown History gram/dose oral powder sitagliptin phosphate 25 mg tablet 25 mg PO DAILY diabetes 05/03/24 Unknown History (Novuvia) torsemide 20 mg tablet 20 mg PO DAILY water pill 05/03/24 Unknown History acetaminophen 650 mg 1,300 mg PO Q12H PRN pain 05/21/24 Unknown History tablet,extended release (8 Hour Pain Reliever) albuterol sulfate 90 mcg/actuation 2 inh inhalation Q4H PRN shortness 05/21/24 Unknown History aerosol inhaler (ProAir HFA) of breath or wheezing cyanocobalamin (vitamin B-12) 1,000 mcg PO DAILY 05/21/24 Unknown History 1,000 mcg tablet insulin aspart U-100 100 unit/mL 20 unit subcut .COMPLEX 05/21/24 Unknown History (3 mL) subcutaneous pen (Novolog FlexPen U-100 Insulin aspart) ipratropium 0.5 mg-albuterol 3 mg 1 inhalation Q4H PRN PRN shortness 05/21/24 Unknown History (2.5 mg base)/3 mL nebulization of breath soln levofloxacin 250 mg tablet 250 mg PO Q24H 05/21/24 Unknown History lidocaine 5 % topical patch 2 patch topical DAILY 05/21/24 Unknown History polyethylene glycol 3350 17 17 g PO DAILY 05/21/24 Unknown History gram/dose oral powder (ClearLax) sitagliptin phosphate 25 mg tablet 25 mg PO DAILY 05/21/24 Unknown History (Januvia) Allergy/AdvReac Type Severity Reaction Status Date / Time doxycycline Allergy Intermediate GI problems Verified 05/21/24 16:21 clindamycin Allergy Rash Verified 05/21/24 16:21 insulin detemir (From Allergy Rash Verified 05/21/24 16:21 Levemir U-100 Insulin) ciprofloxacin AdvReac Mild Upset Verified 05/21/24 16:21 Stomach amoxicillin trihydrate (From AdvReac Nausea Verified 05/21/24 16:21 Augmentin) potassium clavulanate (From AdvReac Nausea Verified 05/21/24 16:21 Augmentin) Family History Father Hypertension Colon cancer Cancer lung Mother Hypertension Heart disease Diabetes Other Hypercholesterolemia Melanoma Surgical History History of right and left heart catheterization (05/04/20) History of cholecystectomy History of laminectomy History of knee replacement procedure of left knee Social History Smoking Status: Former smoker how long ago did patient quit smokin years ago alcohol intake: never substance use type: does not use caffeine: Yes Type: coffee Number of servings: 2 additional social history: Uses aspirin. Does not use ibuprofen. ROS ROS ED Constitutional Constitutional ED: Reports chills and fever(s) ENT ENT ED: Denies sore throat Cardiovascular Cardiovascular: Denies chest pain Respiratory/Chest Respiratory/Chest: Reports cough and dyspnea; Denies sputum Gastrointestinal Gastrointestinal: Denies abdominal pain, nausea or vomiting Genitourinary Genitourinary ED: Denies dysuria Musculoskeletal Musculoskeletal: Reports back pain Integumentary Denies rash Neurologic Neurologic: Reports weakness; Denies headache(s) Hematologic/Lymphatic Hematologic/Lymphatic: Denies easy bleeding EXAM Physical Exam Const Vital Signs: 05/21/24 16:22 05/21/24 16:29 05/21/24 16:33 Temperature 98.1 F 98.4 F Temperature Source Temporal Oral Pulse Rate 57 L 65 Respiratory Rate 19 H 20 H Respiratory Effort Short of Breath Labored Respiratory Pattern Tachypnea Blood Pressure 140/48 H 107/42 L Blood Pressure Mean 78 63 Pulse Ox 99 93 Oxygen Delivery Method Non-Rebreather Nasal Cannula Nasal Cannula Oxygen Flow Rate (L/min) 6 5 05/21/24 16:36 05/21/24 17:28 05/21/24 18:00 Temperature 99 F 98.8 F Temperature Source Temporal Oral Pulse Rate 49 L 72 Respiratory Rate 19 H 21 H Respiratory Effort Respiratory Pattern Blood Pressure 118/45 L 107/42 L Blood Pressure Mean 69 63 Pulse Ox 93 94 95 Oxygen Delivery Method Nasal Cannula Nasal Cannula Nasal Cannula Oxygen Flow Rate (L/min) 6 5 5 05/21/24 18:19 05/21/24 19:00 Temperature 98.5 F Temperature Source Oral Pulse Rate 72 83 Respiratory Rate 18 24 H Respiratory Effort Respiratory Pattern Blood Pressure 117/45 L 114/45 L Blood Pressure Mean 69 68 Pulse Ox 93 96 Oxygen Delivery Method Nasal Cannula Nasal Cannula Oxygen Flow Rate (L/min) 5 Positive well nourished, well developed and obese General Appearance ED: well developed and NAD Nutritional Appearance: obese HEENT Reports dry mucous membranes Mouth ED: Yes dry mucous membranes Mouth: dry mucous membranes Neck supple and no JVD Resp normal respiratory effort Resp Narrative: Diminished breath sounds, scattered course sounds Auscultation: Negative for wheezes Cardio regular rhythm Rate: bradycardia GI non-tender and non-distended Extremity normal to inspection General Extremety ED: Negative for edema General Extremity: Negative for edema Neuro oriented x3 Neuro Narrative: No focal deficits appreciated Sensorium / Orientation: alert Psych mental status grossly normal Skin no wounds MDM MDM MDM Narrative Medical decision making narrative: Patient is evaluated for worsening shortness of breath and increased O2 demands. Patient initially arrives on nonrebreather but is converted to nasal cannula. She is currently on antibiotics which she is not sure why, I question if it is for a reported respiratory illness given her recent symptoms. Patient is not wheezing so do not think she requires steroids at this time She has a mild leukocytosis 11.3 which is pretty nonspecific. Lactate is normal. Do not suspect sepsis. Urinalysis is not particularly consistent with urinary tract infection. Her kidney function is at her baseline if not slightly improved. Her BNP is elevated but also slightly improved. Chest x-ray shows pulmonary vascular congestion and cannot exclude superimposed pneumonia. At this time she is more of a heart history we will treat the patient as a CHF exacerbation with IV Lasix. Case is discussed with hospitalist patient be admitted due to her increased O2 requirements at home and symptoms. They will monitor her and d ecide if patient requires further antibiotic therapy. Patient and agreeable this plan of care. Patient is given her home tramadol for her ongoing rib pain associated with a recent fall a little over a month ago. Of note that has previously been evaluated in the emergency room. While in the ER patient does have a some transient episodes of bradycardia. She is on diltiazem however she is symptomatic during this. Her bradycardia does improve on the emergency room but I do think she would benefit in further cardiac monitoring for symptomatic bradycardia. History & Record Review Additional record(s) reviewed:: Prior inpatient record (Discharge summary from 05/05/2024-patient admitted for hypoxia secondary to acute heart failure exacerbation) Lab Data Attestation: I reviewed the patient's lab results. Labs: Laboratory Results - last 24 hr 05/21/24 05/21/24 05/21/24 16:20 16:46 18:45 WBC 11.3 H RBC 2.92 L Hgb 8.7 L Hct 29.3 L MCV 100.3 H MCH 29.8 MCHC 29.7 L RDW Std Deviation 54.4 H RDW Coeff of Jazzmine 14.8 H Plt Count 215 MPV 9.7 Immature Gran % (Auto) 0.700 Neut % (Auto) 85.0 H Lymph % (Auto) 4.1 L [place] % (Auto) 8.8 Eos % (Auto) 1.1 Baso % (Auto) 0.3 Absolute Neuts (auto) 9.6 H Absolute Lymphs (auto) 0.46 L Nucleated RBC % 0 Differential Comment SEE COMMENT Hypersegmented Neuts AUTO DIFF OK Platelet Estimate ADEQUATE RBC Morphology N CHROM Anisocytosis 1+ Macrocytosis 1+ PT 15.4 H INR 1.2 APTT 35.2 Sodium 137 Potassium 4.5 Chloride 100 Carbon Dioxide 33.0 H Anion Gap 4 L BUN 41 H Creatinine 1.94 H Estim Creat Clear Calc 27.75 Est GFR (MDRD) Af Amer 33 L Est GFR (MDRD) Non-Af 27 L BUN/Creatinine Ratio 21.1 H Glucose 248 H Lactic Acid 1.7 Calcium 9.9 Total Bilirubin 0.40 AST 14 L ALT 17 Alkaline Phosphatase 46 Troponin I High Sens 18 B-Natriuretic Peptide 209.0 H Total Protein 6.3 L Albumin 2.8 L Globulin 3.5 Albumin/Globulin Ratio 0.8 L Prealbumin 14.3 L Urine Color Yellow Urine Clarity Clear Urine pH 5.0 Ur Specific [place] 1.020 Urine Protein 100 H Urine Glucose (UA) Normal Urine Ketones Negative Urine Occult Blood Negative Urine Nitrite Negative Urine Bilirubin Negative Urine Urobilinogen 1 H Ur Leukocyte Esterase 25 H Urine RBC 0 SEEN Urine WBC 0-5 SEEN Ur Squamous Epith Cells 0 SEEN Urine Bacteria 0 SEEN Urine Mucus 0 SEEN Radiography Chest X-Ray - ED: 1 View, Read by ED Physician, Read by Radiologist and CHF Diagnostic Testing: Clinical Impression(s) from Imaging Studies Chest X-Ray 05/21/24 16:50 IMPRESSION: 1. Cardiomegaly and/or pericardial effusion similar to the prior examination. 2. Pulmonary vascular congestion and diffuse interstitial prominence perhaps secondary to CHF. Cannot exclude superimposed pneumonia. Electronically Signed: Chi Avendaño DO at 17:10 EDT , Rhythm Strip Rhythm Strip: Sinus Rhythm Rate: 41 Ectopy: None EKG Initial EKG: Attestation: I personally reviewed and interpreted this EKG as follows: Interpretation: Sinus Bradycardia Comments: Sinus bradycardia with sinus arrhythmia at a rate of 57 bpm Left axis deviation Right bundle branch block Nonspecific T wave inversions in the septal leads Prior EKG tracings: available for review Prior: Changed (Now bradycardic) Follow-up EKG: Attestation: I personally reviewed and interpreted this EKG as follows: Interpretation: Sinus Bradycardia and RBBB Comments: Marked sinus bradycardia with PACs No other acute changes Management Discussion w/another healthcare provider: Hospitalist Discharge Plan Dx/Rx/DC Orders Clinical Impression: Acute on chronic congestive heart failure, Acute and chronic respiratory failure with hypoxia Disposition Disposition: Acute Care Hospital [facility] Discharge Date/Time: 05/21/24 20:17
[2024-05-21] MEDS: 0.9% Normal Saline (1000mL) 1,000 ML 150 ML IV (16:49)
--- NOTE | 2024-05-21 16:50 | RAD_ITS ---
EXAM: XR CHEST, 1 VIEW CLINICAL INDICATION: sob, cough TECHNIQUE: Frontal view of the chest. COMPARISON: 05/03/2024 FINDINGS: LUNGS AND PLEURAL SPACES: Left upper lobe granuloma. Pulmonary vascular congestion and diffuse interstitial prominence perhaps secondary to CHF. No pneumothorax. No effusion. HEART: Cardiomegaly and/or pericardial effusion similar to the prior examination. MEDIASTINUM: Mediastinal and hilar granulomas. BONES/JOINTS: Degenerative changes in the spine and shoulders and scoliotic curvature. No acute fracture. SOFT TISSUES: No significant abnormality. RAD/Chest 1 View (Portable) IMPRESSION: 1. Cardiomegaly and/or pericardial effusion similar to the prior examination. 2. Pulmonary vascular congestion and diffuse interstitial prominence perhaps secondary to CHF. Cannot exclude superimposed pneumonia. Electronically Signed: Chi Avendaño DO at 17:10 EDT ,
[2024-05-21 16:58] LABS: Absolute Lymphocyte Count 0.46 X10^3/uL (0.83-4.51); Absolute Neutrophil Count 9.6 X10^3/uL (2.0-7.7); Basophil# 0.03 X10^3/uL; Basophil% 0.3 % (0-1); Eosinophil# 0.13 X10^3/uL; Eosinophils% 1.1 % (0-5); Hematocrit 29.3 % (37-47); Hemoglobin 8.7 g/dL (12.0-15.0); Lymphocyte # 0.46 X10^3/ul (0.83-4.51); Lymphocyte % 4.1 % (19-41); Mean Corp Hgb Conc 29.7 g/dL (32-36); Mean Corpuscular Hgb 29.8 pg (27.0-32.0); Mean Corpuscular Volume 100.3 fL (81-99); Mean Platelet Vol. 9.7 fl (6.2-12.0); Monocyte% 8.8 % (0-10); NRBC Flagged by Analyzer 0 % (0-5); Neutrophil # 9.63 X10^3/uL (2.7-7.7); POSITIVE DIFFERENTIAL YES; Platelet Count 215 K/mm3 (150-450); RBC Distribution Width CV 14.8 % (11.6-14.6); RBC Distribution Width SD 54.4 fl (35.1-43.9); Red Blood Count 2.92 M/mm3 (4.2-5.4); White Blood Count 11.3 K/mm3 (4.4-11.0)
[2024-05-21 17:05] LABS: Differential Indicated SCAN CRITERIA MET; International Normalized Ratio 1.2; Prothrombin Time (Protime)PT. 15.4 SECONDS (11.7-14.9)
[2024-05-21 17:06] LABS: Partial Thromboplast Time 35.2 Seconds (24.1-36.2)
[2024-05-21 17:16] LABS: ALB/GLOB Ratio 0.8 RATIO (0.9-2.4); AST(SGOT) 14 U/L (15-37); Alanine Aminotransfer ALT/SGPT 17 U/L (13-56); Albumin, Serum 2.8 g/dL (3.2-5.0); Alkaline Phosphatase 46 U/L (45-117); Anion Gap 4 (5-15); BUN 41 mg/dL (7-18); BUN/Creat Ratio 21.1 RATIO (10-20); Calcium,Total 9.9 mg/dL (8.5-10.1); Chloride 100 mmol/L (98-107); Creatinine, Serum 1.94 mg/dL (0.55-1.02); EST Glomerular Filtration Rate 27 mL/min (>60); Est Glom Filt Rate - Afr Amer 33 mL/min (>60); Estimated Creatinine Clearance 27.75 ml/min; Globulin 3.5 g/dL (2.2-4.2); Glucose 248 mg/dL (74-106); Potassium 4.5 mmol/L (3.5-5.1); Protein, Total 6.3 g/dL (6.4-8.2); Sodium Level 137 mmol/L (136-145); Troponin-I HS 18 pg/mL (3.0-54.0)
[2024-05-21 17:25] LABS: Anisocytosis 1+; Macrocytosis 1+; Platelet Estimate ADEQUATE (ADEQ); Red Cell Morphology N CHROM NORMAL (NORM C&C)
--- NOTE | 2024-05-21 17:27 | EKG12_ITS ---
Test Reason : REPEAT Blood Pressure : / mmHG Vent. Rate : 041 BPM Atrial Rate : 041 BPM P-R Int : 128 ms QRS Dur : 156 ms QT Int : 472 ms P-R-T Axes : 038 122 112 degrees QTc Int : 389 ms Marked sinus bradycardia with Premature atrial complexes Right bundle branch block Septal infarct , age undetermined Abnormal ECG Confirmed by Lobito Tolentino ([id number]), managing editor ALIN HUNTER [id number]) on 05/24/2024 8:14:44 AM Referred By: Confirmed By:Lobito Tolentino
[2024-05-21 17:29] LABS: Lactic Acid 1.7 mmol/L (0.4-1.9)
[2024-05-21 18:51] LABS: Bacteria 0 SEEN /hpf (None Seen); Glucose, Dipstick Normal (Normal); Ketone-Dipstick Negative (Negative); Leukocyte Esterase-Dipstick 25 /ul (Negative); Mucous, Urine 0 SEEN /hpf (<or=2+); Nitrite-Dipstick Negative (Negative); Occult Blood-Urine Negative /ul (Negative); Protein-Dipstick 100 mg/dl (Negative); Red Blood Cells-Urine 0 SEEN /hpf (0-5); Squamous Epithelial Cells - UA 0 SEEN /hpf (5-10); Urine Bilirubin Dipstick Negative (Negative); Urine Urobilinogen 1 mg/dl (Normal)
[2024-05-21 18:58] LABS: Color, Urine Yellow (Yellow); Urine Clarity Clear (Clear); White Blood Cells 0-5 SEEN /hpf (0-5)
--- NOTE | 2024-05-21 19:18 | PCM.HP.STD ---
[facility] - General General Date of Admission: 05/21/24 Date of Service: 05/21/24 Chief Complaint: SOB and Subjective Fever. [facility] Narrative WALLACE BAZAN, is a 73 F with a past medical history of essential hypertension, hyperlipidemia, morbid obesity; with BMI of 45.4 this admission, CONCEPCION; noncompliant with CPAP, DM-2; of unknown control, paroxysmal atrial fibrillation; not on anticoagulation, chronic RBBB, history of sarcoidosis, secondary pulmonary arterial hypertension, history of lung abscess, history of asthma/COPD; with chronic hypoxic respiratory failure on 4 L nasal cannula continuously, history of COVID-19, CKD; stage III with a baseline serum creatinine ~2 mg/dL, chronic bilateral lower extremity venous insufficiency, chronic constipation, overactive bladder, history of melanoma, GERD, history of cholecystectomy, osteoporosis, history of L1 compression fracture; with history of laminectomy, gout, osteoarthritis; with history of Left TKR and chronic low back pain on as needed tramadol TID and recent admission here from May 03, 2024 to May 05, 2024 for treatment of AE of chronic CHF; with preserved LVEF who presents to [facility] ER complaining of shortness of breath. Ms. Bazan reports her symptoms began approximately 1 week prior to admission when she began to develop shortness of breath and nonproductive cough for which she was seen by her PCP who prescribed oral Levaquin. According to the patient she was told to hold her diuretic because her blood work showed her kidney function was impaired. Since that time her symptoms have worsened with a sensation of tightness in her chest and she checked her pulse oximeter earlier today with saturation in the ~85% range and then she activated EMS. She also admits to Left-sided back pain and rib pain that is worse with coughing and seemed to start when she fell last month. She took Tylenol prior to arrival for subjective fever and worsening pain with minimal improvement in her symptoms. She denies related chills, nausea, vomiting, diarrhea, palpitations, heart racing or diaphoresis. In the ER she was noted to have x-ray evidence of bilateral infiltrates with a corresponding elevated BNP of 209 pg/mL along with clinical evidence of [id number] respiratory insufficiency complicated by recently diagnosed acute bronchitis with subjective fevers and leukocytosis of 11.3 K present on admission already on oral Levaquin along with hypoalbuminemia of 2.8 g/dL present on admission suspicious for potential underlying protein calorie malnutrition and she was then admitted to the PCU for ongoing care for stay that is expected to extend beyond 2 midnights. [facility] Medical History (Updated 05/22/24 @ 04:[address] Vivek Logan, DO) Chronic renal failure, stage 3 (moderate) Melanoma High triglycerides Hearing problem Back problem Arthritis Lower extremity edema COVID-19 Osteoporosis Diabetes Secondary pulmonary arterial hypertension Muscle spasm Constipation Overactive bladder Gout Allergic rhinitis Osteoporosis Compression fracture of L1 vertebra Intractable low back pain Debility Venous insufficiency of both lower extremities Hyperuricemia GERD (gastroesophageal reflux disease) Morbid obesity Noncompliance with CPAP treatment Obstructive sleep apnea Dysphagia Osteopenia Right bundle branch block (RBBB) Asthma Essential (primary) hypertension Paroxysmal atrial fibrillation Obesity (BMI 30-39.9) Pneumonia Lung abscess On home O2 Sarcoidosis Type 2 diabetes mellitus Chronic obstructive lung disease Hyperlipidemia Home Medications ?Medication ?Instructions ?Recorded ?Last Taken ?Type fluticasone propionate 50 2 spray NASAL DAILY PRN PRN NASAL 06/21/17 11/19/20 History mcg/actuation nasal CONGESTION spray,suspension febuxostat 40 mg tablet (Uloric) 40 mg PO DAILY GOUT 12/30/18 11/19/20 History fluticasone 500 mcg-salmeterol 50 1 inh inhalation BID SHORTNESS OF 07/17/20 11/19/20 History mcg/dose blistr powdr for BREATH inhalation (Advair Diskus) aspirin 81 mg tablet,delayed 81 mg PO DAILY HEART HEALTH #1 TAB 02/08/21 Unknown Rx release loratadine 10 mg tablet (Claritin) 10 mg PO DAILY ALLERGY 01/14/22 Unknown History mirabegron 50 mg tablet,extended 50 mg PO DAILY OVERACTIVE BLADDER 01/14/22 Unknown History release 24 hr (Myrbetriq) tiotropium bromide 1.25 2 puff inhalation DAILY sob 01/14/22 Unknown History mcg/actuation mist for inhalation (Spiriva Respimat) fenofibrate nanocrystallized 145 145 mg PO .daily with dinner 10/16/22 Unknown History mg tablet (Tricor) CHOLESTEROL insulin glargine 100 unit/mL (3 38 unit subcut QPM DIABETES 12/11/22 Unknown History mL) subcutaneous pen levalbuterol HCl 0.63 mg/3 mL 0.63 mg inhalation Q6H PRN WHEEZING 12/11/22 Unknown History solution for nebulization pen needle, diabetic 32 gauge x #400 ea 01/22/23 Unknown Rx (BD Ultra-Fine Sonam Pen Needle) montelukast 10 mg tablet 10 mg PO .daily with dinner ASTHMA 02/22/23 Unknown History (Singulair) omeprazole 20 mg capsule,delayed 20 mg PO DAILY GERD 03/03/23 Unknown History release tramadol 50 mg tablet 50 mg PO .COMPLEX PRN pain 03/03/23 Unknown History pantoprazole 40 mg tablet,delayed 40 mg PO DAILY GERD 05/07/23 Unknown History release Lactobacillus acidophilus 10 mg PO DAILY probiotic 06/16/23 Unknown History (Acidophilus capsule) budesonide 0.5 mg/2 mL suspension 0.5 mg inhalation BID PRN BREATHING 06/16/23 Unknown History for nebulization linaclotide 145 mcg capsule 145 mcg PO DAILY IRRITABLE BOWELS 06/16/23 Unknown History (Linzess) mecobalamin (vitamin B12) 1,000 1,000 mcg PO DAILY vitamin 06/16/23 Unknown History mcg chewable tablet sour scott extract 1,000 mg 1,200 mg PO DAILY supplement 06/16/23 Unknown History capsule (Tart Scott Extract) flash glucose sensor (FreeStyle #6 ea 01/18/24 Unknown Rx Garett 2 Sensor kit) diltiazem HCl 180 mg capsule,24 180 mg PO DAILY BLOOD PRESSURE 03/21/24 Unknown Rx hr,extended release (Tiazac) #90 caps sennosides 8.6 mg-docusate sodium 2 tab PO BID stool softner #0 tabs 04/18/24 Unknown Rx 50 mg tablet (Stool Softener-Stimulant Laxative) carvedilol 6.25 mg tablet 6.25 mg PO BID blood pressure 05/03/24 Unknown History insulin aspart U-100 100 unit/mL See Rx Instructions subcut 05/03/24 Unknown History (3 mL) subcutaneous pen (Novolog .COMPLEX insulin FlexPen U-100 Insulin aspart) polyethylene glycol 3350 17 17 g PO DAILY constipation 05/03/24 Unknown History gram/dose oral powder sitagliptin phosphate 25 mg tablet 25 mg PO DAILY diabetes 05/03/24 Unknown History (Januvia) torsemide 20 mg tablet 20 mg PO DAILY water pill 05/03/24 Unknown History acetaminophen 650 mg 1,300 mg PO Q12H PRN pain 05/21/24 Unknown History tablet,extended release (8 Hour Pain Reliever) albuterol sulfate 90 mcg/actuation 2 inh inhalation Q4H PRN shortness 05/21/24 Unknown History aerosol inhaler (ProAir HFA) of breath or wheezing cyanocobalamin (vitamin B-12) 1,000 mcg PO DAILY 05/21/24 Unknown History 1,000 mcg tablet insulin aspart U-100 100 unit/mL 20 unit subcut .COMPLEX 05/21/24 Unknown History (3 mL) subcutaneous pen (Novolog FlexPen U-100 Insulin aspart) ipratropium 0.5 mg-albuterol 3 mg 1 inhalation Q4H PRN PRN shortness 05/21/24 Unknown History (2.5 mg base)/3 mL nebulization of breath soln levofloxacin 250 mg tablet 250 mg PO Q24H 05/21/24 Unknown History lidocaine 5 % topical patch 2 patch topical DAILY 05/21/24 Unknown History polyethylene glycol 3350 17 17 g PO DAILY 05/21/24 Unknown History gram/dose oral powder (ClearLax) sitagliptin phosphate 25 mg tablet 25 mg PO DAILY 05/21/24 Unknown History (Bessy) Allergy/AdvReac Type Severity Reaction Status Date / Time doxycycline Allergy Intermediate GI problems Verified 05/21/24 16:21 clindamycin Allergy Rash Verified 05/21/24 16:21 insulin detemir (From Allergy Rash Verified 05/21/24 16:21 Levemir U-100 Insulin) ciprofloxacin AdvReac Mild Upset Verified 05/21/24 16:21 Stomach amoxicillin trihydrate (From AdvReac Nausea Verified 05/21/24 16:21 Augmentin) potassium clavulanate (From AdvReac Nausea Verified 05/21/24 16:21 Augmentin) Family History Father Hypertension Colon cancer Cancer lung Mother Hypertension Heart disease Diabetes Other Hypercholesterolemia Melanoma Surgical History History of right and left heart catheterization (05/04/20) History of cholecystectomy History of laminectomy History of knee replacement procedure of left knee Social History Smoking Status: Former smoker how long ago did patient quit smokin years ago alcohol intake: never substance use type: does not use caffeine: Yes Type: coffee Number of servings: 2 additional social history: Uses aspirin. Does not use ibuprofen. ROS ROS Narrative Review of systems: General: Patient reports fever and chills as per HPI. HENT: Denies headache, denies stuffy nose, denies sore throat EYES: Denies changes in vision or discharge from eyes. Resp: Patient admits to shortness of breath and chest tightness with nonproductive cough. Cardiac: Patient admits to pleuritic type chest pain made worse with cough and deep breathing but she denies palpitations or heart racing. GI: Denies abdominal pain, denies changes in bowel, denies nausea or vomiting. : Denies changes in urination Extremity: Denies swelling Musculoskeletal: Feels somewhat generally weak and unwell with back pain but she otherwise denies arthralgias or myalgias. Neuro: Patient denies headache, paresthesias or focal neurologic deficits. Heme: Denies any bleeding or bruising Skin: Denies rashes Psychiatric: No complaints voiced related to uncontrolled depression or anxiety. Endocrine: No polyuria, polydipsia or polyphagia. The rest of the 14 point ROS was negative except for positives in HPI. Vital Signs Vital Signs Vital Signs: 05/21/24 16:22 05/21/24 16:29 05/21/24 16:33 Temperature 98.1 F 98.4 F Temperature Source Temporal Oral Pulse Rate 57 L 65 Respiratory Rate 19 H 20 H Respiratory Effort Short of Breath Labored Respiratory Pattern Tachypnea Blood Pressure 140/48 H 107/42 L Blood Pressure Mean 78 63 Pulse Ox 99 93 Oxygen Delivery Method Non-Rebreather Nasal Cannula Nasal Cannula Oxygen Flow Rate (L/min) 6 5 05/21/24 16:36 05/21/24 17:28 05/21/24 18:00 Temperature 99 F 98.8 F Temperature Source Temporal Oral Pulse Rate 49 L 72 Respiratory Rate 19 H 21 H Respiratory Effort Respiratory Pattern Blood Pressure 118/45 L 107/42 L Blood Pressure Mean 69 63 Pulse Ox 93 94 95 Oxygen Delivery Method Nasal Cannula Nasal Cannula Nasal Cannula Oxygen Flow Rate (L/min) 6 5 5 05/21/24 18:19 05/21/24 19:00 Temperature 98.5 F Temperature Source Oral Pulse Rate 72 83 Respiratory Rate 18 24 H Respiratory Effort Respiratory Pattern Blood Pressure 117/45 L 114/45 L Blood Pressure Mean 69 68 Pulse Ox 93 96 Oxygen Delivery Method Nasal Cannula Nasal Cannula Oxygen Flow Rate (L/min) 5 Weight Weight: 224 lb 10.417 oz Body Mass Index (BMI) 45.3 Physical Exam Const alert, oriented x3 and no apparent distress Constitutional Narrative: Patient is morbidly obese and mildly SOB at rest. General Appearance: cooperative HEENT normocephalic, head/scalp atraumatic, hearing grossly normal bilaterally and moist oral mucous membranes Eyes PERRL and EOMs intact bilaterally Neck no lymphadenopathy and supple Resp Resp Narrative: Diminished breath sounds throughout with scattered coarse rhonchi Auscultation: rhonchi Cardio regular rate and regular rhythm GI normal to inspection, nondistended, normoactive bowel sounds, soft to palpation, non-tender and non-distended Extremity normal to inspection, full ROM and no clubbing, cyanosis or edema Skin Skin Narrative: Patient has no evidence of jaundice, rash or abscess. Neuro oriented x3, CN's II-XII intact bilaterally, moves all extremities and no focal motor deficits Sensorium / Orientation: awake, alert, oriented to person, oriented to place and oriented to time Speech: speech normal Psych affect normal Results Medical Records Data Attestation: I reviewed the patient's medical records Lab / Micro Data Attestation: I reviewed the patient's lab results. 05/21/24 16:20 05/21/24 16:20 Labs: Laboratory Results - last 24 hr 05/21/24 16:20: WBC 11.3 H, RBC 2.92 L, Hgb 8.7 L, Hct 29.3 L, MCV 100.3 H, MCH 29.8, MCHC 29.7 L, RDW Std Deviation 54.4 H, RDW Coeff of Jazzmine 14.8 H, Plt Count 215, MPV 9.7, Immature Gran % (Auto) 0.700, Neut % (Auto) 85.0 H, Lymph % (Auto) 4.1 L, [place] % (Auto) 8.8, Eos % (Auto) 1.1, Baso % (Auto) 0.3, Absolute Neuts (auto) 9.6 H, Absolute Lymphs (auto) 0.46 L, Nucleated RBC % 0, Differential Comment SEE COMMENT, Hypersegmented Neuts AUTO DIFF OK, Platelet Estimate ADEQUATE, RBC Morphology N CHROM, Anisocytosis 1+, Macrocytosis 1+, PT 15.4 H, INR 1.2, APTT 35.2, Sodium 137, Potassium 4.5, Chloride 100, Carbon Dioxide 33.0 H, Anion Gap 4 L, BUN 41 H, Creatinine 1.94 H, Estim Creat Clear Calc 27.75, Est GFR (MDRD) Af Amer 33 L, Est GFR (MDRD) Non-Af 27 L, BUN/Creatinine Ratio 21.1 H, Glucose 248 H, Calcium 9.9, Total Bilirubin 0.40, AST 14 L, ALT 17, Alkaline Phosphatase 46, Troponin I High Sens 18, B-Natriuretic Peptide 209.0 H, Total Protein 6.3 L, Albumin 2.8 L, Globulin 3.5, Albumin/Globulin Ratio 0.8 L 05/21/24 16:46: Lactic Acid 1.7 05/21/24 18:45: Urine Color Yellow, Urine Clarity Clear, Urine pH 5.0, Ur Specific [place] 1.020, Urine Protein 100 H, Urine Glucose (UA) Normal, Urine Ketones Negative, Urine Occult Blood Negative, Urine Nitrite Negative, Urine Bilirubin Negative, Urine Urobilinogen 1 H, Ur Leukocyte Esterase 25 H, Urine RBC 0 SEEN, Urine WBC 0-5 SEEN, Ur Squamous Epith Cells 0 SEEN, Urine Bacteria 0 SEEN, Urine Mucus 0 SEEN Micro: Microbiology 05/21/24 16:42 Mucosa - Nose SARS-CoV-2, Influenza & RSV (PCR) - Final Imaging Radiology Impression Chest X-Ray 05/21/24 16:50 IMPRESSION: 1. Cardiomegaly and/or pericardial effusion similar to the prior examination. 2. Pulmonary vascular congestion and diffuse interstitial prominence perhaps secondary to CHF. Cannot exclude superimposed pneumonia. Electronically Signed: Chi Avendaño, at 17:10 EDT , Assessment & Plan Assessment/Plan (1) Acute on chronic congestive heart failure: QUALIFIERS: Heart failure type: diastolic Qualified Code(s): I50.33 - Acute on chronic diastolic (congestive) heart failure (2) Respiratory insufficiency: (3) Pneumonia: QUALIFIERS: Pneumonia type: due to unspecified organism Laterality: unspecified laterality Lung location: unspecified part of lung Qualified Code(s): J18.9 - Pneumonia, unspecified organism (4) Morbid obesity with BMI of 40.0-44.9, adult: (5) Chronic renal failure, stage 3 (moderate): QUALIFIERS: Chronic kidney disease stage 3 subtype: unspecified whether 3a or 3b Qualified Code(s): N18.30 - Chronic kidney disease, stage 3 unspecified PLAN: Plan 1. AE of chronic diastolic CHF; with preserved LVEF evidenced by chest x-ray positive for bilateral infiltrates plus elevated BNP of 209 pg/mL - Admit to PCU. Continue IV Lasix begun in the ER and add supplemental potassium and magnesium. Serialize troponin. Give Tylenol as needed for [id number] (level 1-5/10) pain or fever. 2. Recently diagnosed acute bronchitis with suspected early pneumonia in the setting of known previous sarcoidosis with corresponding leukocytosis of 11.3 K present on admission complicating #1 - Resume Levaquin as previous and monitor for improvement. 3. [id number]-vj-[id number] respiratory insufficiency attributable to #1 & #2 in the setting of known asthma/COPD and secondary arterial pulmonary hypertension; with chronic hypoxic respiratory failure on 4 L nasal cannula continuously - Stable with no signs of acute exacerbation at this time. Resume as needed nebulizers as previous. Wean supplemental oxygen as tolerated. 4. Morbid obesity; with BMI of 45.4 this admission plus CONCEPCION; noncompliant with CPAP compounding #1 & #2 - Weight loss will be recommended. Encourage CPAP compliance. 5. CKD; stage III with a baseline serum creatinine ~2 mg/dL - Stable. Check CMP daily to ensure continued stability with ongoing diuresis. 6. Hypoalbuminemia of 2.8 g/dL present on admission suspicious for potential underlying protein calorie malnutrition - Check prealbumin to confirm suspicion. Add Ensure to meals. 7. Recent admission here from May 03, 2024 to May 05, 2024 for treatment of AE of chronic CHF; with preserved LVEF - Noted. 8. Essential hypertension - Continue home regimen plus give prn IV Hydralazine for systolic blood pressure > 160 mmHg. 9. Hyperlipidemia - Resume statin. 10. DM-2; of unknown control - ADA diet. FSBS q. AC/HS plus SSI. Check HgbA1c to objectively evaluate quality of diabetic control. 11. Paroxysmal atrial fibrillation; not on anticoagulation - Noted and stable at this time. 12. Chronic RBBB - Noted. 13. History of COVID-19 - Noted. 14. Chronic bilateral lower extremity venous insufficiency - Noted. 15. Chronic constipation - Noted. Give laxatives prn. 16. Overactive bladder - Noted. 17. GERD - Resume PPI as previous. 18. History of cholecystectomy - Noted. 19. Osteoporosis with history of L1 compression fracture and laminectomy - Noted. 20. Gout - Stable with no evidence of acute flare. 21. Osteoarthritis; with history of Left TKR and chronic low back pain on as needed tramadol TID - Give tramadol prn for severe (level 6-10/10) pain. 22. DVT prophylaxis - Heparin 5,000 units sq BID. Total time: Approximately 75 minutes. Charges/Coding Visit Charges Inpatient E&M: 19001 Init Hosp L3
[2024-05-21] MEDS: Acetaminophen 325 MG Tablet 650 MG PO (19:37)
[2024-05-21] MEDS: traMADol 50 MG Tablet PO (19:37)
[2024-05-21] MEDS: Furosemide 40 MG/4 ML Vial IV (19:38)
[2024-05-21 22:02] LABS: Prealbumin 14.3 mg/dL (20.0-40.0)
[2024-05-21] MEDS: Senna/Docusate Sodium 1 Tablet 2 TABLET PO (23:11)
[2024-05-21] MEDS: Insulin Glargine-YFGN 100 UNIT/ML Pen 28 UNIT SC (23:11)
[2024-05-21] MEDS: Menthol/Lanolin/Calamine/Znox 113 GM Tube 1 APPLIC TOPICAL (23:12)
[2024-05-21] MEDS: Nystatin Powder 15gm Bottle 1 APPLIC TOPICAL (23:13)
[2024-05-22] VITALS (9 sets, daily range): BP systolic 120–149; BP diastolic 55–58; PULSE 74–79; RESP 16–20; TEMP 36.3–36.6; O2SAT 94–97; BMI 44.2
[2024-05-22 00:32] LABS: Bedside Glucose 138 mg/dL (74-106)
[2024-05-22] MEDS: traMADol 50 MG Tablet PO (04:54)
[2024-05-22] MEDS: Acetaminophen 325 MG Tablet 650 MG PO (04:54)
[2024-05-22 05:26] LABS: Absolute Lymphocyte Count 0.58 X10^3/uL (0.83-4.51); Absolute Neutrophil Count 7.3 X10^3/uL (2.0-7.7); Basophil# 0.03 X10^3/uL; Basophil% 0.3 % (0-1); Eosinophil# 0.18 X10^3/uL; Eosinophils% 1.9 % (0-5); Hematocrit 30.8 % (37-47); Hemoglobin 8.9 g/dL (12.0-15.0); Lymphocyte # 0.58 X10^3/ul (0.83-4.51); Lymphocyte % 6.3 % (19-41); Mean Corp Hgb Conc 28.9 g/dL (32-36); Mean Corpuscular Hgb 29.1 pg (27.0-32.0); Mean Corpuscular Volume 100.7 fL (81-99); Mean Platelet Vol. 9.9 fl (6.2-12.0); Monocyte# 1.08 X10^3/uL; Monocyte% 11.7 % (0-10); NRBC Flagged by Analyzer 0 % (0-5); Neutrophil # 7.28 X10^3/uL (2.7-7.7); Neutrophil % 78.8 % (47-70); POSITIVE DIFFERENTIAL YES; Platelet Count 211 K/mm3 (150-450); RBC Distribution Width CV 14.8 % (11.6-14.6); RBC Distribution Width SD 54.9 fl (35.1-43.9); Red Blood Count 3.06 M/mm3 (4.2-5.4); White Blood Count 9.2 K/mm3 (4.4-11.0)
[2024-05-22 05:43] LABS: Troponin-I HS 18 pg/mL (3.0-54.0)
[2024-05-22] MEDS: Ipratropium/Albuterol Sulfate 3 ML AMPUL.NEB INHALATION ×3 (07:21→19:06)
[2024-05-22] MEDS: Budesonide Respules 0.5 MG/2 ML AMPUL.NEB. INHALATION ×2 (07:21→19:06)
[2024-05-22] MEDS: Insulin Lispro 100 UNIT/ML INSULN.PEN 12 UNIT SC ×2 (09:37→12:24)
[2024-05-22] MEDS: Potassium Chloride Oral Tablet 20 MEQ PO (09:39)
[2024-05-22] MEDS: Senna/Docusate Sodium 1 Tablet 2 TABLET PO ×2 (09:40→20:38)
[2024-05-22] MEDS: dilTIAZem CD 180 MG Capsule PO (09:40)
[2024-05-22] MEDS: Pantoprazole Sodium 40 MG Tablet PO (09:40)
[2024-05-22] MEDS: Magnesium Chloride 64 MG Delay Rel.Tablet 128 MG PO (09:41)
[2024-05-22] MEDS: Lidocaine 5% Patch 2 PATCH TOPICAL (09:41)
[2024-05-22] MEDS: Febuxostat 40 MG TABLET PO (09:42)
[2024-05-22] MEDS: Polyethylene Glycol 3350 17 GM PACKET PO (09:42)
[2024-05-22] MEDS: Lactobacillis Acidophilus 1 CAP PO (09:43)
[2024-05-22] MEDS: Aspirin E.C. 81 MG Tablet PO (09:43)
[2024-05-22] MEDS: Menthol/Lanolin/Calamine/Znox 113 GM Tube 1 APPLIC TOPICAL (09:43)
[2024-05-22] MEDS: Cyanocobalamin 500 MCG Tablet 1000 MCG PO (09:44)
[2024-05-22] MEDS: Vibegron 75 MG TABLET PO (09:44)
[2024-05-22] MEDS: Furosemide 40 MG/4 ML Vial IV (09:44)
[2024-05-22] MEDS: Ensure Plus High Protein 120 ML LIQUID PO (09:49)
[2024-05-22] MEDS: 0.9% Saline Lock 10 ML Syringe IV (09:50)
[2024-05-22] MEDS: Nystatin Powder 15gm Bottle 1 APPLIC TOPICAL ×2 (09:57→20:37)
--- NOTE | 2024-05-22 12:16 | PN.HOSP_ITS ---
Reason for Visit Reason for Visit: Diagnoses Morbid (severe) obesity due to excess calories (05/21/24) Acute on chronic diastolic (congestive) heart failure (05/21/24) Pneumonia, unspecified organism (05/21/24) Chronic kidney disease, stage 3 unspecified (05/21/24) Other abnormalities of breathing (05/21/24) Body mass index [BMI] 40.0-44.9, adult (05/21/24) Subjective Subjective Breathing improving since patient coughed up sputum during breathing treatment, legs were swollen when she came in however that is improving, nausea improving, overall feeling better than she had Objective Data Objective Data Vital Signs: Vital Signs Temp Pulse Resp BP Pulse Ox O2 Del Method O2 Flow Rate 97.4 F L 78 18 131/56 H 94 Nasal Cannula 4 05/22/24 09:35 05/22/24 09:35 05/22/24 09:35 05/22/24 09:35 05/22/24 09:35 05/22/24 09:35 05/22/24 09:35 Oxygen Flow Rate (L/min) 4 Oxygen Delivery Method Nasal Cannula Weight: 99.4 kg Body Mass Index (BMI) 44.2 Intake & Output: Intake and Output for Last 24 Hours 05/20/24 05/21/24 05/22/24 23:59 23:59 23:59 Intake Total 635 / 635 0 / 0 Output Total 950 / 950 500 / 500 Balance -315 / -315 -500 / -500 Lab / Micro Data 05/22/24 04:28 05/22/24 04:28 Labs: Laboratory Results - last 24 hr 05/21/24 16:20: WBC 11.3 H, RBC 2.92 L, Hgb 8.7 L, Hct 29.3 L, MCV 100.3 H, MCH 29.8, MCHC 29.7 L, RDW Std Deviation 54.4 H, RDW Coeff of Jazzmine 14.8 H, Plt Count 215, MPV 9.7, Immature Gran % (Auto) 0.700, Neut % (Auto) 85.0 H, Lymph % (Auto) 4.1 L, Garza % (Auto) 8.8, Eos % (Auto) 1.1, Baso % (Auto) 0.3, Absolute Neuts (auto) 9.6 H, Absolute Lymphs (auto) 0.46 L, Nucleated RBC % 0, Differential Comment SEE COMMENT, Hypersegmented Neuts AUTO DIFF OK, Platelet Estimate ADEQUATE, RBC Morphology N CHROM, Anisocytosis 1+, Macrocytosis 1+, PT 15.4 H, INR 1.2, APTT 35.2, Sodium 137, Potassium 4.5, Chloride 100, Carbon Dioxide 33.0 H, Anion Gap 4 L, BUN 41 H, Creatinine 1.94 H, Estim Creat Clear Calc 27.75, E st GFR (MDRD) Af Amer 33 L, Est GFR (MDRD) Non-Af 27 L, BUN/Creatinine Ratio 21.1 H, Glucose 248 H, Calcium 9.9, Total Bilirubin 0.40, AST 14 L, ALT 17, Alkaline Phosphatase 46, Troponin I High Sens 18, B-Natriuretic Peptide 209.0 H, Total Protein 6.3 L, Albumin 2.8 L, Globulin 3.5, Albumin/Globulin Ratio 0.8 L, Prealbumin 14.3 L 05/21/24 16:46: Lactic Acid 1.7 05/21/24 18:45: Urine Color Yellow, Urine Clarity Clear, Urine pH 5.0, Ur Specific [place] 1.020, Urine Protein 100 H, Urine Glucose (UA) Normal, Urine Ketones Negative, Urine Occult Blood Negative, Urine Nitrite Negative, Urine Bilirubin Negative, Urine Urobilinogen 1 H, Ur Leukocyte Esterase 25 H, Urine RBC 0 SEEN, Urine WBC 0-5 SEEN, Ur Squamous Epith Cells 0 SEEN, Urine Bacteria 0 SEEN, Urine Mucus 0 SEEN 05/21/24 20:44: POC Glucose 138 H 05/22/24 04:28: WBC 9.2, RBC 3.06 L, Hgb 8.9 L, Hct 30.8 L, MCV 100.7 H, MCH 29.1, MCHC 28.9 L, RDW Std Deviation 54.9 H, RDW Coeff of Jazzmine 14.8 H, Plt Count 211, MPV 9.9, Immature Gran % (Auto) 1.000 H, Neut % (Auto) 78.8 H, Lymph % (Auto) 6.3 L, Garza % (Auto) 11.7 H, Eos % (Auto) 1.9, Baso % (Auto) 0.3, Absolute Neuts (auto) 7.3, Absolute Lymphs (auto) 0.58 L, Nucleated RBC % 0, Troponin I High Sens 18 Micro: Microbiology 05/21/24 18:45 Urine Catheter - Catheter Urine Culture - Preliminary Culture exhibits no growth. 05/21/24 16:42 Mucosa - Nose SARS-CoV-2, Influenza & RSV (PCR) - Final Radiography Diagnostic Testing: Radiology Impression Chest X-Ray 05/21/24 16:50 IMPRESSION: 1. Cardiomegaly and/or pericardial effusion similar to the prior examination. 2. Pulmonary vascular congestion and diffuse interstitial prominence perhaps secondary to CHF. Cannot exclude superimposed pneumonia. Electronically Signed: Chi Avendaño DO at 17:10 EDT , Rhythm Strip Rhythm Strip: Sinus Rhythm Rate: 41 Ectopy: None Physical Exam Narrative General: Alert, oriented, no apparent distress HEENT: Atraumatic, normocephalic Eyes: Anicteric, normal conjunctiva, extraocular movements grossly intact Neck: Supple Respiratory: Slight increased work of breathing with diminished breath sounds bilaterally in part likely due to habitus Cardiovascular: Regular rate and rhythm GI: Soft, nontender, nondistended Extremities: Wrinkles on legs, no significant edema at this time Musculoskeletal: Moving all extremities Neuro: No overt focal neurological deficits Skin: No rashes appreciated Psych: Cooperative Assessment & Plan Assessment/Plan (1) Acute on chronic congestive heart failure: QUALIFIERS: Heart failure type: diastolic Qualified Code(s): I 50.33 - Acute on chronic diastolic (congestive) heart failure (2) Chronic renal failure, stage 3 (moderate): QUALIFIERS: Chronic kidney disease stage 3 subtype: unspecified whether 3a or 3b Qualified Code(s): N18.30 - Chronic kidney disease, stage 3 unspecified (3) Diabetes: QUALIFIERS: Diabetes mellitus type: type 2 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: with intermodal 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 truck driver use Diabetes mellitus complication status: w ith hyperglycemia Qualified Code(s): E11.65 - Type 2 diabetes mellitus with hyperglycemia; Z79.4 - shelter (current) use of insulin PLAN: Plan #Acute exacerbation of chronic heart failure with preserved ejection fraction -Admit to telemetry -BNP 209 -CXR chest x-ray with bilateral infiltrates -Continue IV lasix, can likely de-escalate tomorrow given improvement in volume status -Last echo October 2023 with stage I diastolic function -Daily weights, I's and O's -heart healthy diet # Recently diagnosed acute bronchitis with suspected early pneumonia in setting of chronic hypoxic resp failure on 4L home O2/COPD/secondary PAH/history of sarcoidosis -Patient already placed on Levaquin on outpatient basis so this was continued -Continue nebs and budesonide -Continue support #Type 2 diabetes mellitus -Glucose checks and sliding scale insulin -Continue insulin regimen # CKD stage IIIb -Appears to be at baseline -Avoid nephrotoxic agents -Daily BMPs #Chronic macrocytic anemia -Possibly 2/2 CKD -Will check B12 and folate -No acute drop, appears to be baseline # History of paroxysmal atrial fibrillation -Continue diltiazem -Monitor blood pressures, resume carvedilol when able -Continue aspirin #GERD -Continue PPI #Hypothyroidism -Continue Synthroid -TSH 1.62 #Morbid obesity -BMI 44.3 kg/m? -Complicates treatment, prognosis, outcomes -Recommend weight loss and lifestyle changes #DVT ppx: Heparin subcu, will increase from twice daily to 3 times daily given weight Rossana Dunlap MD Time spent in the patient's overall evaluation,decision-making process, review of diagnostic data, adjustment of management, discussion with other providers, nursing nursing and ancillary staff involved in patient's care documentation, 39 minutes Charges/Coding Visit Charges Inpatient E&M: 66784 Subs Hosp L2
[2024-05-22] MEDS: LINACLOTIDE 145 MCG CAPSULE PO (12:24)
[2024-05-22] MEDS: Insulin Lispro 100 UNIT/ML INSULN.PEN SC (12:24)
[2024-05-22] MEDS: proMETHazine 25 MG/ML Syringe IM (12:25)
[2024-05-22 12:26] LABS: ALB/GLOB Ratio 1.1 RATIO (0.9-2.4); AST(SGOT) 17 U/L (15-37); Alanine Aminotransfer ALT/SGPT 15 U/L (13-56); Alkaline Phosphatase 48 U/L (45-117); Anion Gap 3 (5-15); BUN 37 mg/dL (7-18); BUN/Creat Ratio 21.6 RATIO (10-20); Calcium,Total 10.5 mg/dL (8.5-10.1); Chloride 101 mmol/L (98-107); Creatinine, Serum 1.71 mg/dL (0.55-1.02); EST Glomerular Filtration Rate 31 mL/min (>60); Est Glom Filt Rate - Afr Amer 38 mL/min (>60); Estimated Creatinine Clearance 31.02 ml/min; Globulin 2.7 g/dL (2.2-4.2); Glucose 119 mg/dL (74-106); Magnesium 1.9 mg/dL (1.6-2.6); Phosphorus 3.2 mg/dL (2.5-4.9); Potassium 4.2 mmol/L (3.5-5.1); Protein, Total 5.7 g/dL (6.4-8.2); Sodium Level 141 mmol/L (136-145); Thyroid Stim Hormone (TSH) 1.62 uIU/mL (0.358-3.74)
[2024-05-22] MEDS: Montelukast 10 MG Tablet PO (18:17)
[2024-05-22] MEDS: Insulin Lispro 100 UNIT/ML INSULN.PEN 20 UNIT SC (18:18)
[2024-05-22] MEDS: Insulin Glargine-YFGN 100 UNIT/ML Pen 28 UNIT SC (20:36)
[2024-05-22] MEDS: levoFLOXacin 250 MG Tablet PO (20:38)
[2024-05-23] VITALS (8 sets, daily range): BP systolic 131–157; BP diastolic 56–91; PULSE 68–104; RESP 16–22; TEMP 36.4–36.8; O2SAT 92–98; BMI 43.4
[2024-05-23 06:05] LABS: Absolute Lymphocyte Count 0.59 X10^3/uL (0.83-4.51); Absolute Neutrophil Count 7.1 X10^3/uL (2.0-7.7); Basophil# 0.04 X10^3/uL; Basophil% 0.4 % (0-1); Eosinophil# 0.14 X10^3/uL; Eosinophils% 1.6 % (0-5); Hematocrit 31.1 % (37-47); Hemoglobin 9.1 g/dL (12.0-15.0); Lymphocyte # 0.59 X10^3/ul (0.83-4.51); Lymphocyte % 6.6 % (19-41); Mean Corp Hgb Conc 29.3 g/dL (32-36); Mean Corpuscular Hgb 30.5 pg (27.0-32.0); Mean Corpuscular Volume 104.4 fL (81-99); Mean Platelet Vol. 9.6 fl (6.2-12.0); Monocyte# 0.97 X10^3/uL; Monocyte% 10.9 % (0-10); NRBC Flagged by Analyzer 0 % (0-5); Neutrophil # 7.11 X10^3/uL (2.7-7.7); Neutrophil % 79.7 % (47-70); POSITIVE DIFFERENTIAL YES; Platelet Count 210 K/mm3 (150-450); RBC Distribution Width CV 15.2 % (11.6-14.6); RBC Distribution Width SD 58.3 fl (35.1-43.9); Red Blood Count 2.98 M/mm3 (4.2-5.4); White Blood Count 8.9 K/mm3 (4.4-11.0)
[2024-05-23] MEDS: Acetaminophen 325 MG Tablet 650 MG PO (06:12)
[2024-05-23] MEDS: traMADol 50 MG Tablet PO (06:13)
[2024-05-23] MEDS: Budesonide Respules 0.5 MG/2 ML AMPUL.NEB. INHALATION ×2 (07:19→19:28)
[2024-05-23] MEDS: Ipratropium/Albuterol Sulfate 3 ML AMPUL.NEB INHALATION ×3 (07:19→19:28)
[2024-05-23 07:39] LABS: Anion Gap 5 (5-15); BUN 36 mg/dL (7-18); BUN/Creat Ratio 22.8 RATIO (10-20); Calcium,Total 10.9 mg/dL (8.5-10.1); Chloride 100 mmol/L (98-107); Creatinine, Serum 1.58 mg/dL (0.55-1.02); EST Glomerular Filtration Rate 34 mL/min (>60); Est Glom Filt Rate - Afr Amer 41 mL/min (>60); Estimated Creatinine Clearance 33.23 ml/min; Glucose 114 mg/dL (74-106); Sodium Level 139 mmol/L (136-145)
[2024-05-23 08:52] LABS: Vitamin B12 1232 pg/mL (211-911)
[2024-05-23] MEDS: Insulin Lispro 100 UNIT/ML INSULN.PEN 12 UNIT SC ×2 (10:03→13:17)
[2024-05-23] MEDS: Lidocaine 5% Patch 2 PATCH TOPICAL (10:14)
[2024-05-23] MEDS: Potassium Chloride Oral Tablet 20 MEQ PO (10:15)
[2024-05-23] MEDS: Pantoprazole Sodium 40 MG Tablet PO (10:15)
[2024-05-23] MEDS: Cyanocobalamin 500 MCG Tablet 1000 MCG PO (10:15)
[2024-05-23] MEDS: Senna/Docusate Sodium 1 Tablet 2 TABLET PO ×2 (10:15→22:01)
[2024-05-23] MEDS: Vibegron 75 MG TABLET PO (10:15)
[2024-05-23] MEDS: Aspirin E.C. 81 MG Tablet PO (10:15)
[2024-05-23] MEDS: Lactobacillis Acidophilus 1 CAP PO (10:15)
[2024-05-23] MEDS: Loratadine 10 MG Tablet PO (10:15)
[2024-05-23] MEDS: Febuxostat 40 MG TABLET PO (10:15)
[2024-05-23] MEDS: dilTIAZem CD 180 MG Capsule PO (10:15)
[2024-05-23] MEDS: LINACLOTIDE 145 MCG CAPSULE PO (10:16)
[2024-05-23] MEDS: Menthol/Lanolin/Calamine/Znox 113 GM Tube 1 APPLIC TOPICAL ×2 (10:16→22:04)
[2024-05-23] MEDS: Nystatin Powder 15gm Bottle 1 APPLIC TOPICAL ×2 (10:16→22:03)
[2024-05-23] MEDS: Furosemide 40 MG/4 ML Vial IV (10:16)
--- NOTE | 2024-05-23 10:57 | PCM.PN.HOSP ---
Reason for Visit Reason for Visit: Diagnoses Type 2 diabetes mellitus with hyperglycemia (05/21/24) Morbid (severe) obesity due to excess calories (05/21/24) Acute on chronic diastolic (congestive) heart failure (05/21/24) Pneumonia, unspecified organism (05/21/24) Chronic kidney disease, stage 3 unspecified (05/21/24) Other abnormalities of breathing (05/21/24) Body mass index [BMI] 40.0-44.9, adult (05/21/24) nursing home (current) use of insulin (05/21/24) Subjective Subjective Patient is beginning to feel better, was able to get up to the bathroom with help and very much wants to go home on discharge, adamant that she does not want placement. Does have some chronic back pain for which she is on tramadol and this is roughly unchanged Objective Data Objective Data Vital Signs: Vital Signs Temp Pulse Resp BP Pulse Ox O2 Del Method O2 Flow Rate 98.0 F 74 18 151/56 H 95 Nasal Cannula 4 05/23/24 10:10 05/23/24 10:10 05/23/24 10:10 05/23/24 10:10 05/23/24 10:10 05/23/24 10:10 05/23/24 10:10 Oxygen Flow Rate (L/min) 4 Oxygen Delivery Method Nasal Cannula Weight: 97.7 kg Body Mass Index (BMI) 43.4 Intake & Output: Intake and Output for Last 24 Hours 05/21/24 05/22/24 05/23/24 23:59 23:59 23:59 Intake Total 635 / 635 600 / 750 300 / 300 Output Total 950 / 950 2400 / 2400 600 / 600 Balance -315 / -315 -1800 / -1650 -300 / -300 Lab / Micro Data 05/23/24 05:20 05/23/24 05:20 Labs: Laboratory Results - last 24 hr 05/22/24 04:28: Sodium 141, Potassium 4.2, Chloride 101, Carbon Dioxide 37.0 H, Anion Gap 3 L, BUN 37 H, Creatinine 1.71 H, Estim Creat Clear Calc 31.02, Est GFR (MDRD) Af Amer 38 L, Est GFR (MDRD) Non-Af 31 L, BUN/Creatinine Ratio 21.6 H, Glucose 119 H, Calcium 10.5 H, Phosphorus 3.2, Magnesium 1.9, Total Bilirubin 0.50, AST 17, ALT 15, Alkaline Phosphatase 48, Total Protein 5.7 L, Albumin 3.0 L, Globulin 2.7, Albumin/Globulin Ratio 1.1, TSH 1.62 05/23/24 05:20: WBC 8.9, RBC 2.98 L, Hgb 9.1 L, Hct 31.1 L, MCV 104.4 H, MCH 30.5, MCHC 29.3 L, RDW Std Deviation 58.3 H, RDW Coeff of Jazzmine 15.2 H, Plt Count 210, MPV 9.6, Immature Gran % (Auto) 0.800, Neut % (Auto) 79.7 H, Lymph % (Auto) 6.6 L, [place] % (Auto) 10.9 H, Eos % (Auto) 1.6, Baso % (Auto) 0.4, Absolute Neuts (auto) 7.1, Absolute Lymphs (auto) 0.59 L, Nucleated RBC % 0, Sodium 139, Potassium 4.0, Chloride 100, Carbon Dioxide 34.0 H, Anion Gap 5, BUN 36 H, Creatinine 1.58 H, Estim Creat Clear Calc 33.23, Est GFR (MDRD) Af Amer 41 L, Est GFR (MDRD) Non-Af 34 L, BUN/Creatinine Ratio 22.8 H, Glucose 114 H, Calcium 10.9 H, Vitamin B12 1232 H, Folate 22.50 Micro: Microbiology 05/21/24 18:45 Urine Catheter - Catheter Urine Culture - Final Culture exhibits no growth. 05/21/24 16:42 Mucosa - Nose SARS-CoV-2, Influenza & RSV (PCR) - Final Rhythm Strip Rhythm Strip: Sinus Rhythm Rate: 41 Ectopy: None Physical Exam Narrative General: Alert, oriented, no apparent distress HEENT: Atraumatic, normocephalic Eyes: Anicteric, normal conjunctiva, extraocular movements grossly intact Neck: Supple Respiratory: Improved work of breathing, crackles at the bases improving Cardiovascular: Regular rate and rhythm GI: Soft, nontender, nondistended Extremities: Wrinkles on legs, no significant edema at this time Musculoskeletal: Moving all extremities Neuro: No overt focal neurological deficits Skin: No rashes appreciated Psych: Cooperative Assessment & Plan Assessment/Plan (1) Acute on chronic congestive heart failure: QUALIFIERS: Heart failure type: diastolic Qualified Code(s): I50.33 - Acute on chronic diastolic (congestive) heart failure (2) Chronic renal failure, stage 3 (moderate): QUALIFIERS: Chronic kidney disease stage 3 subtype: unspecified whether 3a or 3b Qualified Code(s): N18.30 - Chronic kidney disease, stage 3 unspecified (3) Diabetes: QUALIFIERS: Diabetes mellitus type: type 2 Diabetes mellitus halfway 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 Lasix tomorrow and can likely discharge if patient still doing well, will need to ambulate to assess O2 requirement however. Is down to 97.7 kg from 101.9 on admission # Recently diagnosed acute bronchitis with suspected early pneumonia in setting of chronic hypoxic resp failure on 4L home O2/COPD/secondary PAH/history of sarcoidosis -Patient already placed on Levaquin on outpatient basis so this was continued -Continue nebs and budesonide -Continue support -05/23: Will plan to complete course of Levaquin #Elevated Ca -Calcium more elevated today however suspect this is due to decrease in volume with Lasix, asymptomatic, may need further outpatient workup #Type 2 diabetes mellitus -Glucose checks and sliding scale insulin -Continue insulin regimen -05/23: Blood glucose relatively well-controlled, continue present management # CKD stage IIIb -Appears to be at baseline -Avoid nephrotoxic agents -Daily BMPs -05/23: Improving with Lasix #Chronic macrocytic anemia -Possibly 2/2 CKD -Will check B12 and folate -No acute drop, appears to be baseline -05/23: No evidence of bleeding, continue current medications # History of paroxysmal atrial fibrillation -Continue diltiazem -Monitor blood pressures, resume carvedilol when able -Continue aspirin -05/23: Will resume carvedilol #GERD -Continue PPI #Hypothyroidism -Continue Synthroid -TSH 1.62 #Morbid obesity -BMI 44.3 kg/m? -Complicates treatment, prognosis, outcomes -Recommend weight loss and lifestyle changes #DVT ppx: Heparin subcu, will increase from twice daily to 3 times daily given weight Rossana Dunlap MD Time spent in the patient's overall evaluation,decision-making process, review of diagnostic data, adjustment of management, discussion with other providers, nursing nursing and ancillary staff involved in patient's care documentation, 35 minutes Charges/Coding Visit Charges Inpatient E&M: 44390 Subs Hosp L2
[2024-05-23 12:22] LABS: Bedside Glucose 147 mg/dL (74-106)
--- NOTE | 2024-05-23 14:30 | CASEMGMT ---
SARA BARON chart review: Patient was admitted 05/03-05/05/24 for acute heart failure. See assessment from 04/15/24. Patient was discharged to home with family support, [facility], and resumption of home oxygen through [facility] at 4lpm continuously. Patient returned to [facility] ED on 05/21/24 for increased SOB and was admitted for Acute exacerbation of CHF. SARA BARON in to discuss readmission and discharge needs with patient, at bedside eating [employer]. Patient states she was taking medications as prescribed. Patient states she has been to follow-up appts. RN LORAINE inquired if patient weighs self daily, states not everyday and noticed she had a 3lbs weight gain but did not mention it to [facility] or PCP. Patient states she tries to follow fluid restiction but in not strict. SARA BARON inquired if patient follows a low sodium diet. Per patient, she just ate a taco from [employer]. Patient and state they eat at restaurants frequently and make ready made meals. Patient states she only add a little bit of salt to food. SARA BARON educated patient and the importance of low sodium diet with diagnosis of CHF and that it could be contributing to her SOB and increase oxygen demands. Patient states she thinks it is the air conditioning and allergies that are causing her breathing issues. Patient also states she doesn't think her oxygen concentrator is working as her oxygen levels drop when she is walking. SARA BARON asked if she has been having increase swelling in legs, patient stated she has. SARA BARON educated patient how not following sodium restricted diet can cause fluid retention which can then cause shortness of breath. Patient states she still thinks it is from her air conditioner. Patient states she plans to return home with resumption of [facility]. Patient and denied further needs or questions. SARA BARON updated hospitalist regarding patient's nonadherence to sodium and fluid restrictions. SARA BARON reached out to inpatient pop singer for further education regarding diet recommendations.
[2024-05-23 17:12] LABS: Bedside Glucose 130 mg/dL (74-106)
[2024-05-23] MEDS: Insulin Lispro 100 UNIT/ML INSULN.PEN 20 UNIT SC (17:42)
[2024-05-23] MEDS: Montelukast 10 MG Tablet PO (17:42)
[2024-05-23] MEDS: guaiFENesin 600 MG Tablet PO (22:02)
[2024-05-23] MEDS: Carvedilol 6.25 MG Tablet PO (22:02)
[2024-05-23] MEDS: levoFLOXacin 250 MG Tablet PO (22:03)
[2024-05-23] MEDS: Insulin Glargine-YFGN 100 UNIT/ML Pen 28 UNIT SC (22:04)
[2024-05-23 22:29] LABS: Bedside Glucose 134 mg/dL (74-106)
[2024-05-24] VITALS (8 sets, daily range): BP systolic 99–133; BP diastolic 50–60; PULSE 75–98; RESP 16–18; TEMP 36.2–36.7; O2SAT 4–97
[2024-05-24 07:11] LABS: Bedside Glucose 86 mg/dL (74-106)
[2024-05-24 07:46] LABS: Anion Gap 4 (5-15); BUN 35 mg/dL (7-18); BUN/Creat Ratio 20.2 RATIO (10-20); Calcium,Total 10.6 mg/dL (8.5-10.1); Chloride 99 mmol/L (98-107); Creatinine, Serum 1.73 mg/dL (0.55-1.02); EST Glomerular Filtration Rate 31 mL/min (>60); Est Glom Filt Rate - Afr Amer 37 mL/min (>60); Estimated Creatinine Clearance 30.35 ml/min; Glucose 100 mg/dL (74-106); Potassium 3.8 mmol/L (3.5-5.1); Sodium Level 138 mmol/L (136-145)
[2024-05-24] MEDS: Ipratropium/Albuterol Sulfate 3 ML AMPUL.NEB INHALATION ×2 (07:47→12:24)
[2024-05-24] MEDS: Budesonide Respules 0.5 MG/2 ML AMPUL.NEB. INHALATION (07:48)
[2024-05-24] MEDS: Lidocaine 5% Patch 2 PATCH TOPICAL (08:42)
[2024-05-24] MEDS: Acetaminophen 325 MG Tablet 650 MG PO (08:47)
[2024-05-24] MEDS: guaiFENesin 600 MG Tablet PO (08:47)
[2024-05-24] MEDS: dilTIAZem CD 180 MG Capsule PO (08:47)
[2024-05-24] MEDS: Febuxostat 40 MG TABLET PO (08:47)
[2024-05-24] MEDS: Pantoprazole Sodium 40 MG Tablet PO (08:48)
[2024-05-24] MEDS: Vibegron 75 MG TABLET PO (08:48)
[2024-05-24] MEDS: Potassium Chloride Oral Tablet 20 MEQ PO (08:48)
[2024-05-24] MEDS: Cyanocobalamin 500 MCG Tablet 1000 MCG PO (08:48)
[2024-05-24] MEDS: Aspirin E.C. 81 MG Tablet PO (08:48)
[2024-05-24] MEDS: Magnesium Chloride 64 MG Delay Rel.Tablet 128 MG PO (08:48)
[2024-05-24] MEDS: Senna/Docusate Sodium 1 Tablet 2 TABLET PO (08:48)
[2024-05-24] MEDS: Furosemide 80 MG Tablet PO (08:48)
[2024-05-24] MEDS: Carvedilol 6.25 MG Tablet PO (08:49)
[2024-05-24] MEDS: LINACLOTIDE 145 MCG CAPSULE PO (08:49)
[2024-05-24] MEDS: Nystatin Powder 15gm Bottle 1 APPLIC TOPICAL (08:49)
[2024-05-24] MEDS: Lactobacillis Acidophilus 1 CAP PO (08:49)
[2024-05-24] MEDS: Menthol/Lanolin/Calamine/Znox 113 GM Tube 1 APPLIC TOPICAL (08:50)
[2024-05-24 09:54] LABS: Absolute Lymphocyte Count 0.56 X10^3/uL (0.83-4.51); Absolute Neutrophil Count 6.1 X10^3/uL (2.0-7.7); Basophil# 0.03 X10^3/uL; Basophil% 0.4 % (0-1); Eosinophil# 0.13 X10^3/uL; Eosinophils% 1.7 % (0-5); Hematocrit 29.6 % (37-47); Hemoglobin 9.2 g/dL (12.0-15.0); Lymphocyte # 0.56 X10^3/ul (0.83-4.51); Lymphocyte % 7.3 % (19-41); Mean Corp Hgb Conc 31.1 g/dL (32-36); Mean Corpuscular Hgb 30.6 pg (27.0-32.0); Mean Corpuscular Volume 98.3 fL (81-99); Mean Platelet Vol. 9.8 fl (6.2-12.0); Monocyte# 0.82 X10^3/uL; Monocyte% 10.6 % (0-10); NRBC Flagged by Analyzer 0 % (0-5); Neutrophil % 79.2 % (47-70); POSITIVE DIFFERENTIAL YES; Platelet Count 207 K/mm3 (150-450); RBC Distribution Width SD 54.2 fl (35.1-43.9); Red Blood Count 3.01 M/mm3 (4.2-5.4); White Blood Count 7.7 K/mm3 (4.4-11.0)
[2024-05-24] MEDS: traMADol 50 MG Tablet PO (09:59)
[2024-05-24] MEDS: proMETHazine 25 MG/ML Syringe IM (09:59)
[2024-05-24] MEDS: Ondansetron 4 MG/2 ML Vial IV (11:03)
[2024-05-24] MEDS: 0.9% Saline Lock 10 ML Syringe IV (11:03)
[2024-05-24] MEDS: Insulin Lispro 100 UNIT/ML INSULN.PEN SC (11:11)
[2024-05-24] MEDS: Insulin Lispro 100 UNIT/ML INSULN.PEN 12 UNIT SC (11:11)
[2024-05-24 11:29] LABS: Bedside Glucose 195 mg/dL (74-106)
--- NOTE | 2024-05-24 14:20 | PCM.DC ---
Discharge Instructions Diet Discharge Diet: - (-DASH diet, 3000 mg sodium restriction, 2 L fluid restriction) Activity Discharge Activity: Use Walker Follow Up Care Test Results: Test results from this visit will be discussed in further detail at your follow-up appointment, if applicable. Discharge Plan Admission Admit Date/Time: 05/21/24 19:55 Primary Reason for Your Visit: Shortness of breath Attending Provider: Rossana Dunlap Primary Care Provider: Veronica Oquendo Consulting Providers: Vivek Logan Instructions Patient Instructions: Coping with Heart Failure, ED Heart Failure, Congestive (CHF), Heart Failure Additional Instructions / Restrictions: DISCHARGE INSTRUCTIONS PLEASE READ *Please take this with you to your next doctors appointment* - You have both Protonix and omeprazole listed on her medication list, will continue Protonix and discontinue omeprazole -Please complete your course of Levaquin that you were previously prescribed -You will need to take 40 mg of torsemide for 2 days and then go back down to your regular torsemide dosing -Would recommend lab work (BMP) to check your kidney function in 2-3 days through your primary care physician's office. Please call their office upon discharge to obtain order for lab work. -You will use 4 L of oxygen at rest and 5 with ambulation -Please continue to use your walker -Weigh yourself every day. A sudden weight gain can mean you are retaining fluid. Weigh yourself at the same time of day and in the same kind of clothes. Ideally, weigh yourself first thing in the morning after you empty your bladder, but before you eat breakfast. -Please call your physician if your weight goes up by more than 2 pounds in 1 day or 5 pounds in 1 week. This can be a sign that you are retaining more fluid than you should be. Clues to weight gain include checking your ankles for swelling, or noticing you are short of breath when you lie down -Please limit your sodium intake to less than 3 g/day. Here are tips: Limit canned, dried, packaged, and fast foods. Don't add salt to your food at the table. Season foods with herbs instead of salt when you cook. When you eat out, ask that the pie chef not add any salt to your dish. Don't eat fried or greasy foods. Be careful of bottled beverages. They can contain a lot of salt -Call 911 right away if you have: -Severe shortness of breath, such that you can't catch your breath even while resting -Severe chest pain that does not resolve with rest or nitroglycerin -[place], foamy mucus with cough and shortness of breath -An ongoing rapid or irregular heartbeat -Passing out or fainting -Stroke symptoms such as sudden numbness or weakness on one side of your face, arm, or leg or sudden confusion, trouble speaking or vision changes -Please call your primary care provider's office upon discharge to schedule a hospital follow up within 1 week. -For any concerning signs or symptoms please call 911 or proceed to the nearest emergency department Discharge Orders/Prescriptions Prescriptions: Continued fluticasone propion-salmeterol [Advair Diskus] 500-50 mcg/dose blister with device 1 inh INHALATION BID aspirin 81 mg tablet,delayed release (DR/EC) 81 mg PO DAILY Qty: 1 0RF levalbuterol HCl 0.63 mg/3 mL solution for nebulization 0.63 mg inhalation Q6H PRN (Reason: WHEEZING ) insulin glargine 100 unit/mL (3 mL) insulin pen 38 unit SC QPM budesonide 0.5 mg/2 mL suspension for nebulization 0.5 mg inhalation BID PRN (Reason: BREATHING) fenofibrate nanocrystallized [Tricor] 145 mg tablet 145 mg PO .daily with dinner tramadol 50 mg tablet 50 mg PO .COMPLEX PRN (Reason: pain) Rx Instructions: 50 mg orally 2-3X daily PRN; mecobalamin (vitamin B12) 1,000 mcg tablet,chewable 1,000 mcg PO DAILY Acidophilus Capsule 10 mg PO DAILY Linzess 145 mcg capsule 145 mcg PO DAILY Tart [place] Extract 1,000 mg capsule 1,200 mg PO DAILY fluticasone propionate 1 SPRAY spray,suspension 2 spray NASAL DAILY PRN PRN (Reason: NASAL CONGESTION ) febuxostat [Uloric] 40 MG tablet 40 mg PO DAILY pantoprazole 40 mg tablet,delayed release (DR/EC) 40 mg PO DAILY loratadine [Claritin] 10 mg Tablet 10 mg PO DAILY mirabegron [Myrbetriq] 50 mg Tablet Extended Release 24 Hr 50 mg PO DAILY Spiriva Respimat 1.25 mcg/actuation Mist 2 puff INHALATION DAILY montelukast [Singulair] 10 mg Tablet 10 mg PO .daily with dinner carvedilol 6.25 mg tablet 6.25 mg PO BID insulin aspart U-100 [Novolog FlexPen U-100 Insulin] 100 unit/mL (3 mL) insulin pen See Rx Instructions subcut .COMPLEX Rx Instructions: 12-14 units subcutaneously before breakfast and lunch; cyanocobalamin (vitamin B-12) 1,000 mcg tablet 1,000 mcg PO DAILY lidocaine 5 % adhesive patch,medicated 2 patch topical DAILY insulin aspart U-100 [Novolog FlexPen U-100 Insulin] 100 unit/mL (3 mL) insulin pen 20 unit subcut .COMPLEX Rx Instructions: 20 units subcutaneously before dinner; albuterol sulfate [ProAir HFA] 90 mcg/actuation HFA aerosol inhaler 2 inh inhalation Q4H PRN (Reason: shortness of breath or wheezing) acetaminophen [8 Hour Pain Reliever] 650 mg tablet extended release 1,300 mg PO Q12H PRN (Reason: pain) polyethylene glycol 3350 [ClearLax] 17 gram/dose powder 17 g PO QHS ipratropium-albuterol 0.5 mg-3 mg(2.5 mg base)/3 mL solution for nebulization 1 inhalation Q4H PRN PRN (Reason: shortness of breath) Januvia 25 mg tablet 25 mg PO DAILY levofloxacin 250 mg tablet 250 mg PO Q24H torsemide 20 mg tablet 20 mg PO DAILY Qty: 30 0RF Rx Instructions: Take 2 tabs for two days then TAKE 1 TABLET BY MOUTH DAILY unless weight has increased by 2 (TWO) pounds or more, then take second tablet (DME) pen needle, diabetic [BD Ultra-Fine Sonam Pen Needle] 32 gauge x 5/32 needle See Rx Instructions .ROUTE .MEDSUPPLY Qty: 400 3RF Rx Instructions: 4times daily (DME) FreeStyle Garett 2 Sensor Kit See Rx Instructions .ROUTE .MEDSUPPLY Qty: 6 3RF Rx Instructions: 1 sensor q 14 days diltiazem HCl [Tiazac] 180 mg capsule,extended release 24 hr 180 mg PO DAILY Qty: 90 3RF Discontinued omeprazole 20 mg capsule,delayed release(DR/EC) 20 mg PO DAILY polyethylene glycol 3350 17 gram/dose powder 17 g PO DAILY Januvia 25 mg tablet 25 mg PO DAILY Referrals / Follow Up: Veronica Oquendo DO [Primary Care Provider] - Within 1 Week Disposition Disposition (needs filled in before D/C Order can be placed): Home Health Service
--- NOTE | 2024-05-24 14:23 | PCM.DC.SUM ---
Providers Date of Admission: 05/21/24 Date of Discharge: 05/24/24 Primary Care Physician: Dr. Veronica Oquendo DO Reason For Visit: AE CHF Diagnosis Discharge Diagnosis (1) Acute on chronic congestive heart failure: Status: Chronic Code(s): I50.9 - Heart failure, unspecified Qualifiers: Heart failure type: diastolic Qualified Code(s): I50.33 - Acute on chronic diastolic (congestive) heart failure (2) Chronic renal failure, stage 3 (moderate): Status: Chronic Code(s): N18.3 - Chronic kidney disease, stage 3 (moderate) Qualifiers: Chronic kidney disease stage 3 subtype: unspecified whether 3a or 3b Qualified Code(s): N18.30 - Chronic kidney disease, stage 3 unspecified (3) Diabetes: Status: Chronic Code(s): E11.9 - Type 2 diabetes mellitus without complications Qualifiers: Diabetes mellitus complication status: with hyperglycemia Diabetes mellitus m[facility]p insulin use: 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 Diabetes mellitus type: type 2 Qualified Code(s): E11.65 - Type 2 diabetes mellitus with hyperglycemia; Z79.4 - jail (current) use of insulin Plan #Acute exacerbation of chronic heart failure with preserved ejection fraction # Recently diagnosed acute bronchitis with suspected early pneumonia in setting of chronic hypoxic resp failure on 4L home O2 #Elevated Ca #Type 2 diabetes mellitus # CKD stage IIIb #Chronic macrocytic anemia # History of paroxysmal atrial fibrillation #GERD #Hypothyroidism #Morbid obesity Medications at Discharge Home Medications fluticasone propionate 50 mcg/actuation nasal spray,suspension 2 spray NASAL DAILY PRN PRN NASAL CONGESTION 06/21/17 febuxostat 40 mg tablet (Uloric) 40 mg PO DAILY GOUT 12/30/18 fluticasone 500 mcg-salmeterol 50 mcg/dose blistr powdr for inhalation (Advair Diskus) 1 inh inhalation BID SHORTNESS OF BREATH 07/17/20 aspirin 81 mg tablet,delayed release 81 mg PO DAILY HEART HEALTH #1 TAB 02/08/21 loratadine 10 mg tablet (Claritin) 10 mg PO DAILY ALLERGY 01/14/22 mirabegron 50 mg tablet,extended release 24 hr (Myrbetriq) 50 mg PO DAILY OVERACTIVE BLADDER 01/14/22 tiotropium bromide 1.25 mcg/actuation mist for inhalation (Spiriva Respimat) 2 puff inhalation DAILY sob 01/14/22 fenofibrate nanocrystallized 145 mg tablet (Tricor) 145 mg PO .daily with dinner CHOLESTEROL 10/16/22 insulin glargine 100 unit/mL (3 mL) subcutaneous pen 38 unit subcut QPM DIABETES 12/11/22 levalbuterol HCl 0.63 mg/3 mL solution for nebulization 0.63 mg inhalation Q6H PRN WHEEZING 12/11/22 pen needle, diabetic 32 gauge x 5/32 (BD Ultra-Fine Sonam Pen Needle) #400 ea 01/22/23 montelukast 10 mg tablet (Singulair) 10 mg PO .daily with dinner ASTHMA 02/22/23 tramadol 50 mg tablet 50 mg PO .COMPLEX PRN pain 03/03/23 pantoprazole 40 mg tablet,delayed release 40 mg PO DAILY GERD 05/07/23 Lactobacillus acidophilus (Acidophilus capsule) 10 mg PO DAILY probiotic 06/16/23 budesonide 0.5 mg/2 mL suspension for nebulization 0.5 mg inhalation BID PRN BREATHING 06/16/23 linaclotide 145 mcg capsule (Linzess) 145 mcg PO DAILY IRRITABLE BOWELS 06/16/23 mecobalamin (vitamin B12) 1,000 mcg chewable tablet 1,000 mcg PO DAILY vitamin 06/16/23 sour scott extract 1,000 mg capsule (Tart Scott Extract) 1,200 mg PO DAILY supplement 06/16/23 flash glucose sensor (FreeStyle Garett 2 Sensor kit) #6 ea 01/18/24 diltiazem HCl 180 mg capsule,24 hr,extended release (Tiazac) 180 mg PO DAILY BLOOD PRESSURE #90 caps 03/21/24 carvedilol 6.25 mg tablet 6.25 mg PO BID blood pressure 05/03/24 insulin aspart U-100 100 unit/mL (3 mL) subcutaneous pen (Novolog FlexPen U-100 Insulin aspart) See Rx Instructions subcut .COMPLEX insulin 05/03/24 acetaminophen 650 mg tablet,extended release (8 Hour Pain Reliever) 1,300 mg PO Q12H PRN pain 05/21/24 albuterol sulfate 90 mcg/actuation aerosol inhaler (ProAir HFA) 2 inh inhalation Q4H PRN shortness of breath or wheezing 05/21/24 cyanocobalamin (vitamin B-12) 1,000 mcg tablet 1,000 mcg PO DAILY 05/21/24 insulin aspart U-100 100 unit/mL (3 mL) subcutaneous pen (Novolog FlexPen U-100 Insulin aspart) 20 unit subcut .COMPLEX 05/21/24 ipratropium 0.5 mg-albuterol 3 mg (2.5 mg base)/3 mL nebulization soln 1 inhalation Q4H PRN PRN shortness of breath 05/21/24 levofloxacin 250 mg tablet 250 mg PO Q24H 05/21/24 lidocaine 5 % topical patch 2 patch topical DAILY 05/21/24 polyethylene glycol 3350 17 gram/dose oral powder (ClearLax) 17 g PO QHS constipation 05/21/24 sitagliptin phosphate 25 mg tablet (Januvia) 25 mg PO DAILY 05/21/24 torsemide 20 mg tablet 20 mg PO DAILY water pill #30 tabs 05/24/24 Hospital Course Summary of Care Provided Minutes Spent on Discharge: 33 Hospital Course: 73-year-old female history of heart failure with preserved ejection fraction, type 2 diabetes, chronic hypoxic respiratory failure on 4 L home O2, CKD stage IIIb, paroxysmal atrial fibrillation not on anticoagulation who presented to [facility] ED 05/24/[facility] with shortness of breath and cough for 1 week and had been started on Levaquin by her PCP. She had been told to hold her diuretic because her kidney function was impaired per report and her symptoms worsened. Pulse ox at home was 85% she was brought to the hospital and diagnosed with acute exacerbation of heart failure and started on IV Lasix. Her Levaquin was continued. She slowly improved with IV diuresis and was comfortable with her level of mobility for going home. Transition to p.o. diuresis and walked, 4 L at rest which is her home and 5 L and ambulation. Discussed sodium and fluid restriction extensively and discharge instructions with her and her and they verbalized understanding. Discharge instructions as follows: - You have both Protonix and omeprazole listed on her medication list, will continue Protonix and discontinue omeprazole -Please complete your course of Levaquin that you were previously prescribed -You will need to take 40 mg of torsemide for 2 days and then go back down to your regular torsemide dosing -Would recommend lab work (BMP) to check your kidney function in 2-3 days through your primary care physician's office. Please call their office upon discharge to obtain order for lab work. -You will use 4 L of oxygen at rest and 5 with ambulation -Please continue to use your walker -Weigh yourself every day. A sudden weight gain can mean you are retaining fluid. Weigh yourself at the same time of day and in the same kind of clothes. Ideally, weigh yourself first thing in the morning after you empty your bladder, but before you eat breakfast. -Please call your physician if your weight goes up by more than 2 pounds in 1 day or 5 pounds in 1 week. This can be a sign that you are retaining more fluid than you should be. Clues to weight gain include checking your ankles for swelling, or noticing you are short of breath when you lie down -Please limit your sodium intake to less than 3 g/day. Here are tips: Limit canned, dried, packaged, and fast foods. Don't add salt to your food at the table. Season foods with herbs instead of salt when you cook. When you eat out, ask that the clothing sales assistant not add any salt to your dish. Don't eat fried or greasy foods. Be careful of bottled beverages. They can contain a lot of salt -Call 911 right away if you have: -Severe shortness of breath, such that you can't catch your breath even while resting -Severe chest pain that does not resolve with rest or nitroglycerin -[place], foamy mucus with cough and shortness of breath -An ongoing rapid or irregular heartbeat -Passing out or fainting -Stroke symptoms such as sudden numbness or weakness on one side of your face, arm, or leg or sudden confusion, trouble speaking or vision changes -Please call your primary care provider's office upon discharge to schedule a hospital follow up within 1 week. -For any concerning signs or symptoms please call 911 or proceed to the nearest emergency department Physical Exam Narrative General: Alert, oriented, no apparent distress HEENT: Atraumatic, normocephalic Eyes: Anicteric, normal conjunctiva, extraocular movements grossly intact Neck: Supple Respiratory: Improved work of breathing, lung sounds improving Cardiovascular: Regular rate and rhythm GI: Soft, nontender, nondistended Extremities: Wrinkles on legs, no significant edema at this time Musculoskeletal: Moving all extremities Neuro: No overt focal neurological deficits Skin: No rashes appreciated Psych: Cooperative Weight / BMI Weight Weight: 97.7 kg Body Mass Index (BMI) 43.4 ABG / Lab / Microbiology Data 05/24/24 06:26 05/24/24 06:26 Laboratory: Laboratory Results - last 24 hr 05/23/24 16:55: POC Glucose 130 H 05/23/24 21:56: POC Glucose 134 H 05/24/24 06:26: WBC 7.7, RBC 3.01 L, Hgb 9.2 L, Hct 29.6 L, MCV 98.3 D, MCH 30.6, MCHC 31.1 L D, RDW Std Deviation 54.2 H, RDW Coeff of [place] 15.0 H, Plt Count 207, MPV 9.8, Immature Gran % (Auto) 0.800, Neut % (Auto) 79.2 H, Lymph % (Auto) 7.3 L, [place] % (Auto) 10.6 H, Eos % (Auto) 1.7, Baso % (Auto) 0.4, Absolute Neuts (auto) 6.1, Absolute Lymphs (auto) 0.56 L, Nucleated RBC % 0, Sodium 138, Potassium 3.8, Chloride 99, Carbon Dioxide 35.0 H, Anion Gap 4 L, BUN 35 H, Creatinine 1.73 H, Estim Creat Clear Calc 30.35, Est GFR (MDRD) Af Amer 37 L, Est GFR (MDRD) Non-Af 31 L, BUN/Creatinine Ratio 20.2 H, Glucose 100, Calcium 10.6 H 05/24/24 06:32: POC Glucose 86 05/24/24 11:09: POC Glucose 195 H Microbiology: Microbiology 05/21/24 17:05 Blood Culture (Wb) - Left Wrist Blood Culture - Preliminary No growth in 48 hours. 05/21/24 16:46 Blood Culture (Wb) - Right Forearm Blood Culture - Preliminary No growth in 48 hours. 05/21/24 18:45 Urine Catheter - Catheter Urine Culture - Final Culture exhibits no growth. 05/21/24 16:42 Mucosa - Nose SARS-CoV-2, Influenza & RSV (PCR) - Final D/C Instructions Discharge Diet: - (-DASH diet, 3000 mg sodium restriction, 2 L fluid restriction) Meaningful Use Info Meaningful Use Meaningful Use Diagnoses (Choose all that apply): CHF CHF SINA/ARB ordered at discharge?: No Reason SINA/ARB not ordered?: Worsening renal disease Documented LVEF (%): 55 Ischemic Stroke Statin Dosing Therapy Reference: STATIN DOSE THERAPY REFERENCE: * Patients > 75 years receive moderate or high dose statin therapy. * Patients 75 years or YOUNGER should receive HIGH intensity statin dose unless contraindicated. You will be required to document reason for non-treatment if statin daily dose does not meet guidelines. HIGH DOSE STATIN THERAPY DAILY Atorvastatin > than or = to 40 mg Rosuvastatin > than or = to 20 mg Amlodipine + Atorvastatin > than or = to 2.5/40 mg Ezetimibe + Simvastatin 10/80 mg Simvastatin 80mg Discharge Plan Admission Admit Date/Time: 05/21/24 19:55 Primary Reason for Your Visit: Shortness of breath Attending Provider: Rossana Dunlap Primary Care Provider: Veronica Oquendo Consulting Providers: Vivek Logan Instructions Patient Instructions: Coping with Heart Failure, ED Heart Failure, Congestive (CHF), Heart Failure Additional Instructions / Restrictions: DISCHARGE INSTRUCTIONS PLEASE READ *Please take this with you to your next doctors appointment* - You have both Protonix and omeprazole listed on her medication list, will continue Protonix and discontinue omeprazole -Please complete your course of Levaquin that you were previously prescribed -You will need to take 40 mg of torsemide for 2 days and then go back down to your regular torsemide dosing -Would recommend lab work (BMP) to check your kidney function in 2-3 days through your primary care physician's office. Please call their office upon discharge to obtain order for lab work. -You will use 4 L of oxygen at rest and 5 with ambulation -Please continue to use your walker -Weigh yourself every day. A sudden weight gain can mean you are retaining fluid. Weigh yourself at the same time of day and in the same kind of clothes. Ideally, weigh yourself first thing in the morning after you empty your bladder, but before you eat breakfast. -Please call your physician if your weight goes up by more than 2 pounds in 1 day or 5 pounds in 1 week. This can be a sign that you are retaining more fluid than you should be. Clues to weight gain include checking your ankles for swelling, or noticing you are short of breath when you lie down -Please limit your sodium intake to less than 3 g/day. Here are tips: Limit canned, dried, packaged, and fast foods. Don't add salt to your food at the table. Season foods with herbs instead of salt when you cook. When you eat out, ask that the clothing sales assistant not add any salt to your dish. Don't eat fried or greasy foods. Be careful of bottled beverages. They can contain a lot of salt -Call 911 right away if you have: -Severe shortness of breath, such that you can't catch your breath even while resting -Severe chest pain that does not resolve with rest or nitroglycerin -[place], foamy mucus with cough and shortness of breath -An ongoing rapid or irregular heartbeat -Passing out or fainting -Stroke symptoms such as sudden numbness or weakness on one side of your face, arm, or leg or sudden confusion, trouble speaking or vision changes -Please call your primary care provider's office upon discharge to schedule a hospital follow up within 1 week. -For any concerning signs or symptoms please call 911 or proceed to the nearest emergency department Discharge Orders/Prescriptions Prescriptions: Continued fluticasone propion-salmeterol [Advair Diskus] 500-50 mcg/dose blister with device 1 inh INHALATION BID aspirin 81 mg tablet,delayed release (DR/EC) 81 mg PO DAILY Qty: 1 0RF levalbuterol HCl 0.63 mg/3 mL solution for nebulization 0.63 mg inhalation Q6H PRN (Reason: WHEEZING ) insulin glargine 100 unit/mL (3 mL) insulin pen 38 unit SC QPM budesonide 0.5 mg/2 mL suspension for nebulization 0.5 mg inhalation BID PRN (Reason: BREATHING) fenofibrate nanocrystallized [Tricor] 145 mg tablet 145 mg PO .daily with dinner tramadol 50 mg tablet 50 mg PO .COMPLEX PRN (Reason: pain) Rx Instructions: 50 mg orally 2-3X daily PRN; mecobalamin (vitamin B12) 1,000 mcg tablet,chewable 1,000 mcg PO DAILY Acidophilus Capsule 10 mg PO DAILY Linzess 145 mcg capsule 145 mcg PO DAILY Tart Scott Extract 1,000 mg capsule 1,200 mg PO DAILY fluticasone propionate 1 SPRAY spray,suspension 2 spray NASAL DAILY PRN PRN (Reason: NASAL CONGESTION ) febuxostat [Uloric] 40 MG tablet 40 mg PO DAILY pantoprazole 40 mg tablet,delayed release (DR/EC) 40 mg PO DAILY loratadine [Claritin] 10 mg Tablet 10 mg PO DAILY mirabegron [Myrbetriq] 50 mg Tablet Extended Release 24 Hr 50 mg PO DAILY Spiriva Respimat 1.25 mcg/actuation Mist 2 puff INHALATION DAILY montelukast [Singulair] 10 mg Tablet 10 mg PO .daily with dinner carvedilol 6.25 mg tablet 6.25 mg PO BID insulin aspart U-100 [Novolog FlexPen U-100 Insulin] 100 unit/mL (3 mL) insulin pen See Rx Instructions subcut .COMPLEX Rx Instructions: 12-14 units subcutaneously before breakfast and lunch; cyanocobalamin (vitamin B-12) 1,000 mcg tablet 1,000 mcg PO DAILY lidocaine 5 % adhesive patch,medicated 2 patch topical DAILY insulin aspart U-100 [Novolog FlexPen U-100 Insulin] 100 unit/mL (3 mL) insulin pen 20 unit subcut .COMPLEX Rx Instructions: 20 units subcutaneously before dinner; albuterol sulfate [ProAir HFA] 90 mcg/actuation HFA aerosol inhaler 2 inh inhalation Q4H PRN (Reason: shortness of breath or wheezing) acetaminophen [8 Hour Pain Reliever] 650 mg tablet extended release 1,300 mg PO Q12H PRN (Reason: pain) polyethylene glycol 3350 [ClearLax] 17 gram/dose powder 17 g PO QHS ipratropium-albuterol 0.5 mg-3 mg(2.5 mg base)/3 mL solution for nebulization 1 inhalation Q4H PRN PRN (Reason: shortness of breath) Januvia 25 mg tablet 25 mg PO DAILY levofloxacin 250 mg tablet 250 mg PO Q24H torsemide 20 mg tablet 20 mg PO DAILY Qty: 30 0RF Rx Instructions: Take 2 tabs for two days then TAKE 1 TABLET BY MOUTH DAILY unless weight has increased by 2 (TWO) pounds or more, then take second tablet (DME) pen needle, diabetic [BD Ultra-Fine Sonam Pen Needle] 32 gauge x 5/32 needle See Rx Instructions .ROUTE .MEDSUPPLY Qty: 400 3RF Rx Instructions: 4times daily (DME) FreeStyle Garett 2 Sensor Kit See Rx Instructions .ROUTE .MEDSUPPLY Qty: 6 3RF Rx Instructions: 1 sensor q 14 days diltiazem HCl [Tiazac] 180 mg capsule,extended release 24 hr 180 mg PO DAILY Qty: 90 3RF Discontinued omeprazole 20 mg capsule,delayed release(DR/EC) 20 mg PO DAILY polyethylene glycol 3350 17 gram/dose powder 17 g PO DAILY Januvia 25 mg tablet 25 mg PO DAILY Referrals / Follow Up: Veronica Oquendo DO [Primary Care Provider] - Within 1 Week Disposition Disposition (needs filled in before D/C Order can be placed): Home Health Service Charges/Coding Visit Charges Inpatient E&M: 58446 Disch Hosp >30min
--- NOTE | 2024-05-24 14:30 | PHA.DC.MR.R ---
Pharmacy [facility] Med Reconciliation Pharmacy Service has performed discharge medication reconciliation for this patient. The patient's discharge medication list was reviewed for discrepancies and discrepancies were resolved. Medications at Discharge Home Medications fluticasone propionate 50 mcg/actuation nasal spray,suspension 2 spray NASAL DAILY PRN PRN NASAL CONGESTION 06/21/17 febuxostat 40 mg tablet (Uloric) 40 mg PO DAILY GOUT 12/30/18 fluticasone 500 mcg-salmeterol 50 mcg/dose blistr powdr for inhalation (Advair Diskus) 1 inh inhalation BID SHORTNESS OF BREATH 07/17/20 aspirin 81 mg tablet,delayed release 81 mg PO DAILY HEART HEALTH #1 TAB 02/08/21 loratadine 10 mg tablet (Claritin) 10 mg PO DAILY ALLERGY 01/14/22 mirabegron 50 mg tablet,extended release 24 hr (Myrbetriq) 50 mg PO DAILY OVERACTIVE BLADDER 01/14/22 tiotropium bromide 1.25 mcg/actuation mist for inhalation (Spiriva Respimat) 2 puff inhalation DAILY sob 01/14/22 fenofibrate nanocrystallized 145 mg tablet (Tricor) 145 mg PO .daily with dinner CHOLESTEROL 10/16/22 insulin glargine 100 unit/mL (3 mL) subcutaneous pen 38 unit subcut QPM DIABETES 12/11/22 levalbuterol HCl 0.63 mg/3 mL solution for nebulization 0.63 mg inhalation Q6H PRN WHEEZING 12/11/22 pen needle, diabetic 32 gauge x 5/32 (BD Ultra-Fine Sonam Pen Needle) #400 ea 01/22/23 montelukast 10 mg tablet (Singulair) 10 mg PO .daily with dinner ASTHMA 02/22/23 tramadol 50 mg tablet 50 mg PO .COMPLEX PRN pain 03/03/23 pantoprazole 40 mg tablet,delayed release 40 mg PO DAILY GERD 05/07/23 Lactobacillus acidophilus (Acidophilus capsule) 10 mg PO DAILY probiotic 06/16/23 budesonide 0.5 mg/2 mL suspension for nebulization 0.5 mg inhalation BID PRN BREATHING 06/16/23 linaclotide 145 mcg capsule (Linzess) 145 mcg PO DAILY IRRITABLE BOWELS 06/16/23 mecobalamin (vitamin B12) 1,000 mcg chewable tablet 1,000 mcg PO DAILY vitamin 06/16/23 sour scott extract 1,000 mg capsule (Tart Scott Extract) 1,200 mg PO DAILY supplement 06/16/23 flash glucose sensor (FreeStyle Garett 2 Sensor kit) #6 ea 01/18/24 diltiazem HCl 180 mg capsule,24 hr,extended release (Tiazac) 180 mg PO DAILY BLOOD PRESSURE #90 caps 03/21/24 carvedilol 6.25 mg tablet 6.25 mg PO BID blood pressure 05/03/24 insulin aspart U-100 100 unit/mL (3 mL) subcutaneous pen (Novolog FlexPen U-100 Insulin aspart) See Rx Instructions subcut .COMPLEX insulin 05/03/24 acetaminophen 650 mg tablet,extended release (8 Hour Pain Reliever) 1,300 mg PO Q12H PRN pain 05/21/24 albuterol sulfate 90 mcg/actuation aerosol inhaler (ProAir HFA) 2 inh inhalation Q4H PRN shortness of breath or wheezing 05/21/24 cyanocobalamin (vitamin B-12) 1,000 mcg tablet 1,000 mcg PO DAILY 05/21/24 insulin aspart U-100 100 unit/mL (3 mL) subcutaneous pen (Novolog FlexPen U-100 Insulin aspart) 20 unit subcut .COMPLEX 05/21/24 ipratropium 0.5 mg-albuterol 3 mg (2.5 mg base)/3 mL nebulization soln 1 inhalation Q4H PRN PRN shortness of breath 05/21/24 levofloxacin 250 mg tablet 250 mg PO Q24H 05/21/24 lidocaine 5 % topical patch 2 patch topical DAILY 05/21/24 polyethylene glycol 3350 17 gram/dose oral powder (ClearLax) 17 g PO QHS constipation 05/21/24 sitagliptin phosphate 25 mg tablet (Januvia) 25 mg PO DAILY 05/21/24 torsemide 20 mg tablet 20 mg PO DAILY water pill #30 tabs 05/24/24
--- NOTE | 2024-05-24 14:58 | CASEMGMT ---
Patient has order for discharge. SARA BARON called [facility] and updated regarding discharge, resumption of care planned for tomorrow. Patient will need increase in home oxygen and script received. SARA BARON sent updated script to [facility] via [employer]. SARA BARON in to update patient of [facility] resumption and increase in home oxygen. Patient denies further needs at discharge. Patient voice that doctor told her she needs to limit her salt intake and fluids. Patient had no further questions or concerns.
--- NOTE | 2024-05-24 15:29 | NS ---
MNT note> Provided sodium-restricted diet education to pt and spouse prior to d/c. Pt's seems quite knowledgeable about sodium-containing foods/beverages and has been reading food labels as well. Pt appears to think that a little is ok. Did reinforce the importance of absolutely No Salt, reading food labels and avoiding fast food, processed food, canned food and frozen meals. Provided printed information from The Nutrition Care Manual on CHF Nutrition Therapy and encouraged pt and to call RD as needed. Aileen Sarabia MS, RD, LD
== END 2024-05-24 16:12 | disposition home health service (06) | DRG 291 ==
LOC: ED 18:21 → PCU 20:16
PROVIDERS: Admitting Provider Internal Medicine; Emergency Provider Emergency Medicine; PCP Internal Medicine; Visit Provider Internal Medicine
DX: I13.0 Hypertensive heart and chronic kidney disease with heart failure and stage 1 through stage 4 chronic kidney disease, or unspecified chronic kidney disease (principal); J18.9 Pneumonia, unspecified organism; I50.33 Acute on chronic diastolic (congestive) heart failure; J96.11 Chronic respiratory failure with hypoxia; J44.0 Chronic obstructive pulmonary disease with (acute) lower respiratory infection; Z68.42 Body mass index [BMI] 45.0-49.9, adult; I27.21 Secondary pulmonary arterial hypertension; D63.1 Anemia in chronic kidney disease; E88.09 Other disorders of plasma-protein metabolism, not elsewhere classified; E11.22 Type 2 diabetes mellitus with diabetic chronic kidney disease; N18.32 Chronic kidney disease, stage 3b; I48.0 Paroxysmal atrial fibrillation; E11.65 Type 2 diabetes mellitus with hyperglycemia; E66.01 Morbid (severe) obesity due to excess calories; Z79.4 Long term (current) use of insulin; E03.9 Hypothyroidism, unspecified; K21.9 Gastro-esophageal reflux disease without esophagitis; E78.5 Hyperlipidemia, unspecified; J20.9 Acute bronchitis, unspecified; I87.2 Venous insufficiency (chronic) (peripheral); M10.9 Gout, unspecified; D86.9 Sarcoidosis, unspecified; G47.33 Obstructive sleep apnea (adult) (pediatric); R00.1 Bradycardia, unspecified; Z99.81 Dependence on supplemental oxygen; M81.0 Age-related osteoporosis without current pathological fracture; N32.81 Overactive bladder; G89.29 Other chronic pain; Z91.199 Patient's noncompliance with other medical treatment and regimen due to unspecified reason; Z79.82 Long term (current) use of aspirin; Z79.51 Long term (current) use of inhaled steroids; Z87.891 Personal history of nicotine dependence; Z79.84 Long term (current) use of oral hypoglycemic drugs; Z79.899 Other long term (current) drug therapy
CPT/HCPCS: 36415; 71045; 80048; 80053; 81001; 82607; 82746; 82962; 83605; 83735; 83880; 84100; 84134; 84443; 84484; 85025; 85610; 85730; 87040; 87086; 87631; 93005; 94640; 94668; 97116; 97161; 97165; 97530; 97535; 97802; 99285; J7030; A4216; J1940; J2405

== ENCOUNTER → 2024-05-31 | Outpatient (CLI) | payer MEDICARE, OTHER, SELFPAY ==
[2022-07-11 11:12] VITALS: BMI 40.4
[2024-05-31 17:41] LABS: Hematocrit 31.9 % (37-47); Hemoglobin 9.7 g/dL (12.0-15.0); Mean Corp Hgb Conc 30.4 g/dL (32-36); Mean Corpuscular Volume 95.2 fL (81-99); Mean Platelet Vol. 9.6 fl (6.2-12.0); Platelet Count 393 K/mm3 (150-450); RBC Distribution Width SD 52.4 fl (35.1-43.9); Red Blood Count 3.35 M/mm3 (4.2-5.4); White Blood Count 8.2 K/mm3 (4.4-11.0)
[2024-05-31 18:21] LABS: Albumin, Serum 3.3 g/dL (3.2-5.0); BUN 42 mg/dL (7-18); BUN/Creat Ratio 18.9 RATIO (10-20); Calcium,Total 10.5 mg/dL (8.5-10.1); Chloride 102 mmol/L (98-107); Creatinine, Serum 2.22 mg/dL (0.55-1.02); EST Glomerular Filtration Rate 23 mL/min (>60); Est Glom Filt Rate - Afr Amer 28 mL/min (>60); Glucose 102 mg/dL (74-106); Magnesium 1.9 mg/dL (1.6-2.6); Phosphorus 2.9 mg/dL (2.5-4.9); Potassium 3.9 mmol/L (3.5-5.1); Sodium Level 140 mmol/L (136-145); Uric Acid 5.4 mg/dL (2.6-6.0)
[2024-05-31 18:29] LABS: Microalbumin,Random Urine 97.6 mg/L (NO RANGE EST.); Microalbumin:Creatinine Ratio 97.6 mg/g CRE (<30 mg/g CRE)
[2024-06-02 13:45] LABS: PTHIN 75.5 pg/mL (18.4-80.1)
[2024-06-02 13:55] LABS: Vitamin D,25 Hydroxy 81.3 ng/mL
[2024-06-03 11:08] LABS: Vitamin D 1,25-Dihydroxy 60.3 pg/mL (24.8-81.5)
== END | disposition home or self-care (01) ==
LOC: MTLAB 14:02
PROVIDERS: PCP Internal Medicine; Referring Provider Internal Medicine Nephrology; Visit Provider Internal Medicine Nephrology
DX: N18.4 Chronic kidney disease, stage 4 (severe) (principal); E55.9 Vitamin D deficiency, unspecified; D63.1 Anemia in chronic kidney disease; M10.9 Gout, unspecified
CPT/HCPCS: 36415; 80069; 82043; 82306; 82570; 82652; 83735; 83970; 84550; 85027

== ENCOUNTER → 2024-06-20 | Outpatient (CLI) | payer MEDICARE, OTHER, SELFPAY ==
[2022-07-11 11:12] VITALS: BMI 40.4
[2024-06-20 13:31] LABS: ALB/GLOB Ratio 1.4 RATIO (0.9-2.4); AST(SGOT) 22 U/L (15-37); Alanine Aminotransfer ALT/SGPT 16 U/L (13-56); Albumin, Serum 3.8 g/dL (3.2-5.0); Alkaline Phosphatase 65 U/L (45-117); Anion Gap 7 (5-15); BUN 58 mg/dL (7-18); BUN/Creat Ratio 32.4 RATIO (10-20); Calcium,Total 10.5 mg/dL (8.5-10.1); Chloride 105 mmol/L (98-107); Creatinine, Serum 1.79 mg/dL (0.55-1.02); EST Glomerular Filtration Rate 30 mL/min (>60); Est Glom Filt Rate - Afr Amer 36 mL/min (>60); Globulin 2.8 g/dL (2.2-4.2); Glucose 131 mg/dL (74-106); Potassium 4.6 mmol/L (3.5-5.1); Protein, Total 6.6 g/dL (6.4-8.2); Sodium Level 143 mmol/L (136-145)
[2024-06-20 18:20] LABS: Absolute Lymphocyte Count 0.86 X10^3/uL (0.83-4.51); Absolute Neutrophil Count 6.6 X10^3/uL (2.0-7.7); Basophil# 0.05 X10^3/uL; Basophil% 0.6 % (0-1); Eosinophil# 0.19 X10^3/uL; Eosinophils% 2.2 % (0-5); Hematocrit 38.5 % (37-47); Hemoglobin 11.7 g/dL (12.0-15.0); Lymphocyte # 0.86 X10^3/ul (0.83-4.51); Lymphocyte % 10.1 % (19-41); Mean Corp Hgb Conc 30.4 g/dL (32-36); Mean Corpuscular Volume 95.3 fL (81-99); Mean Platelet Vol. 10.8 fl (6.2-12.0); Monocyte# 0.73 X10^3/uL; Monocyte% 8.5 % (0-10); NRBC Flagged by Analyzer 0 % (0-5); Neutrophil # 6.64 X10^3/uL (2.7-7.7); Neutrophil % 77.8 % (47-70); POSITIVE COUNT YES; Platelet Count 276 K/mm3 (150-450); RBC Distribution Width CV 14.9 % (11.6-14.6); Red Blood Count 4.04 M/mm3 (4.2-5.4); White Blood Count 8.5 K/mm3 (4.4-11.0)
[2024-06-20 18:22] LABS: Differential Indicated SCAN CRITERIA MET
[2024-06-20 18:44] LABS: Anisocytosis RARE; Macrocytosis RARE; Ovalocyte RARE; Platelet Estimate ADEQUATE (ADEQ); Red Cell Morphology N CHROM NORMAL (NORM C&C)
== END | disposition home or self-care (01) ==
LOC: LABSPEC 12:02
PROVIDERS: PCP Internal Medicine; Referring Provider Internal Medicine; Visit Provider Internal Medicine
DX: D72.829 Elevated white blood cell count, unspecified (principal); N18.30 Chronic kidney disease, stage 3 unspecified
CPT/HCPCS: 80053; 85025

== ENCOUNTER → 2024-07-18 | Outpatient (CLI) | payer MEDICARE, OTHER, SELFPAY ==
[2022-07-11 11:12] VITALS: BMI 40.4
[2024-07-18 15:32] LABS: Protein, Urine (Random) 17.2 mg/dL (<11.9); Protein:Creat Ratio 183 mg/g CRE (0-200)
[2024-07-18 18:15] LABS: Albumin, Serum 3.6 g/dL (3.2-5.0); BUN 60 mg/dL (7-18); BUN/Creat Ratio 27.1 RATIO (10-20); Calcium,Total 10.8 mg/dL (8.5-10.1); Chloride 102 mmol/L (98-107); Creatinine, Serum 2.21 mg/dL (0.55-1.02); EST Glomerular Filtration Rate 23 mL/min (>60); Est Glom Filt Rate - Afr Amer 28 mL/min (>60); Glucose 207 mg/dL (74-106); Phosphorus 2.6 mg/dL (2.5-4.9); Potassium 3.6 mmol/L (3.5-5.1); Sodium Level 141 mmol/L (136-145)
== END | disposition home or self-care (01) ==
LOC: MTLAB 13:48
PROVIDERS: PCP Internal Medicine; Referring Provider Internal Medicine Nephrology; Visit Provider Internal Medicine Nephrology
DX: N18.4 Chronic kidney disease, stage 4 (severe) (principal)
CPT/HCPCS: 36415; 80069; 82570; 84156

== ENCOUNTER 2024-07-25 12:58 | Outpatient (RCR) | payer MEDICARE, OTHER, SELFPAY ==
[2024-07-20 15:07] VITALS: BMI 40.4
== END 2024-07-30 23:59 ==
LOC: NS 12:58
PROVIDERS: PCP Internal Medicine; Referring Provider Internal Medicine; Visit Provider Internal Medicine
DX: Z71.3 Dietary counseling and surveillance (principal); I50.9 Heart failure, unspecified; I12.9 Hypertensive chronic kidney disease with stage 1 through stage 4 chronic kidney disease, or unspecified chronic kidney disease; E11.22 Type 2 diabetes mellitus with diabetic chronic kidney disease
CPT/HCPCS: 97802

== ENCOUNTER 2024-08-29 01:25 | Observation (INO) | payer MEDICARE, OTHER, SELFPAY ==
[2024-07-20 15:07] VITALS: BMI 40.4
[2024-08-29] VITALS (10 sets, daily range): BP systolic 108–159; BP diastolic 39–67; PULSE 50–83; RESP 16–18; TEMP 36.3–36.6; O2SAT 93–99; BMI 45.6; BMI 44.4
--- NOTE | 2024-08-29 01:47 | RAD_ITS ---
STUDY: X-RAY CHEST REASON FOR EXAM: Female, 73 years old patient with weakness. TECHNIQUE: Single AP portable view of the chest. COMPARISON: July 20, 2024. FINDINGS: Cardiac monitoring leads are present. The lungs are expanded. There appear to be bilateral heterogeneous airspace consolidations, greater at the lung bases. There is no demonstrated pleural abnormality. There is moderate cardiac enlargement. Normal mediastinum and arthur. There is prominence of the pulmonary hilar arteries and peripheral pulmonary arteries, consistent with congestive heart failure (CHF). There is atherosclerotic calcification of the aortic arch with tortuosity. There are diffuse degenerative changes of the visualized thoracic spine. There are degenerative changes of both shoulders. There is no demonstrated abnormality of the visualized soft tissue structures of the upper abdomen. RAD/Chest 1 View (Portable) IMPRESSION: 1. Findings suggest congestive heart failure. 2. Heterogeneous airspace disease at the lung bases may be secondary to pulmonary edema or pneumonia. Electronically Signed: Renetta Oliveira MD at 3:14 EDT ,
--- NOTE | 2024-08-29 01:48 | EKG12_ITS ---
Test Reason : WEAKNESS Blood Pressure : / mmHG Vent. Rate : 054 BPM Atrial Rate : 000 BPM P-R Int : 000 ms QRS Dur : 158 ms QT Int : 470 ms P-R-T Axes : 000 121 066 degrees QTc Int : 445 ms ATRIAL FIBRILLATION Right bundle branch block Septal infarct , age undetermined Lateral infarct , age undetermined Abnormal ECG Confirmed by IRA FELIX, KEREN ([id number]), slot editor ALIN HUNTER ([id number]) on 08/30/2024 6:33:08 AM Referred By: Confirmed By:KEREN ROTH MD
[2024-08-29] MEDS: 0.9% Normal Saline (500mL Bag) 500 ML 999 ML IV (02:10)
--- NOTE | 2024-08-29 02:16 | EX.ED.DYSGE1 ---
HPI History of Present Illness Chief Complaint: Weakness Informant: patient, spouse/S.O. and EMS Narrative Narrative: Patient is a 73-year-old female with past medical history of congestive heart failure chronic kidney disease hypertension hyperlipidemia atrial fibrillation and insulin-dependent diabetes. Patient states she felt relatively normal throughout the day. After eating and sitting in her recliner watching TV she got up and went to bed. She states that she felt slightly weak at that time but figured she would just go to sleep and see how she felt in the morning. She states that she awoke and needed to use rest. She got up and began walking towards the bathroom when she felt so weak that she could no longer hold herself up and her legs gave out. She denies striking her head or any loss of consciousness. She states that she truly did not fall but was able to lower herself to the ground on her knees. attempted to help her up but was unable to do so and therefore called EMS. The patient states she has not had a fever or chills she denies vomiting diarrhea or dysuria she denies chest pain or increased shortness of breath however based on her generalized weakness she does not feel she would be able to care for herself at home and therefore was asked to come to the hospital for further evaluation [facility] Medical History CHF (congestive heart failure) Respiratory insufficiency Chronic renal failure, stage 3 (moderate) Melanoma High triglycerides Hearing problem Back problem Arthritis Lower extremity edema COVID-19 Osteoporosis Diabetes Secondary pulmonary arterial hypertension Muscle spasm Constipation Overactive bladder Gout Allergic rhinitis Osteoporosis Compression fracture of L1 vertebra Intractable low back pain Debility Venous insufficiency of both lower extremities Hyperuricemia GERD (gastroesophageal reflux disease) Morbid obesity Noncompliance with CPAP treatment Obstructive sleep apnea Dysphagia Osteopenia Right bundle branch block (RBBB) Asthma Essential (primary) hypertension Paroxysmal atrial fibrillation Obesity (BMI 30-39.9) Pneumonia Lung abscess On home O2 Sarcoidosis Type 2 diabetes mellitus Chronic obstructive lung disease Hyperlipidemia Home Medications ?Medication ?Instructions ?Recorded ?Last Taken ?Type fluticasone propionate 50 2 spray NASAL DAILY PRN PRN NASAL 06/21/17 11/19/20 History mcg/actuation nasal CONGESTION spray,suspension febuxostat 40 mg tablet (Uloric) 40 mg PO DAILY GOUT 01/31/19 12/21/20 History fluticasone 500 mcg-salmeterol 50 1 inh inhalation BID SHORTNESS OF 07/17/20 11/19/20 History mcg/dose blistr powdr for BREATH inhalation (Advair Diskus) aspirin 81 mg tablet,delayed 81 mg PO DAILY HEART HEALTH #1 TAB 02/08/21 Unknown Rx release loratadine 10 mg tablet (Claritin) 10 mg PO DAILY ALLERGY 01/14/22 Unknown History mirabegron 50 mg tablet,extended 50 mg PO DAILY OVERACTIVE BLADDER 01/14/22 Unknown History release 24 hr (Myrbetriq) tiotropium bromide 1.25 2 puff inhalation DAILY sob 01/14/22 Unknown History mcg/actuation mist for inhalation (Spiriva Respimat) insulin glargine 100 unit/mL (3 38 unit subcut QPM DIABETES 12/11/22 Unknown History mL) subcutaneous pen levalbuterol HCl 0.63 mg/3 mL 0.63 mg inhalation Q6H PRN WHEEZING 12/11/22 Unknown History solution for nebulization pen needle, diabetic 32 gauge x #400 ea 01/22/23 Unknown Rx (BD Ultra-Fine Sonam Pen Needle) tramadol 50 mg tablet 50 mg PO .COMPLEX PRN pain 03/03/23 08/29/24 History pantoprazole 40 mg tablet,delayed 40 mg PO DAILY GERD 05/07/23 Unknown History release Lactobacillus acidophilus 10 mg PO DAILY probiotic 06/16/23 Unknown History (Acidophilus capsule) budesonide 0.5 mg/2 mL suspension 0.5 mg inhalation QODAY PRN 06/16/23 Unknown History for nebulization BREATHING linaclotide 145 mcg capsule 145 mcg PO DAILY IRRITABLE BOWELS 06/16/23 Unknown History (Linzess) sour scott extract 1,000 mg 1,200 mg PO DAILY supplement 06/16/23 Unknown History capsule (Tart Scott Extract) flash glucose sensor (FreeStyle #6 ea 01/18/24 Unknown Rx Garett 2 Sensor kit) diltiazem HCl 180 mg capsule,24 180 mg PO DAILY BLOOD PRESSURE 03/21/24 Unknown Rx hr,extended release (Tiazac) #90 caps insulin aspart U-100 100 unit/mL See Rx Instructions subcut 05/03/24 Unknown History (3 mL) subcutaneous pen (Novolog .COMPLEX insulin FlexPen U-100 Insulin aspart) acetaminophen 650 mg 1,300 mg PO Q12H PRN pain 05/21/24 Unknown History tablet,extended release (8 Hour Pain Reliever) cyanocobalamin (vitamin B-12) 1,000 mcg PO DAILY 05/21/24 Unknown History 1,000 mcg tablet insulin aspart U-100 100 unit/mL 20 unit subcut .COMPLEX 05/21/24 Unknown History (3 mL) subcutaneous pen (Novolog FlexPen U-100 Insulin aspart) ipratropium 0.5 mg-albuterol 3 mg 3 ml inhalation Q4H PRN PRN 05/21/24 Unknown History (2.5 mg base)/3 mL nebulization shortness of breath soln lidocaine 5 % topical patch 2 patch topical DAILY PRN pain 05/21/24 Unknown History polyethylene glycol 3350 17 17 g PO QHS constipation 05/21/24 Unknown History gram/dose oral powder (ClearLax) azelastine 137 mcg (0.1 %) nasal 2 spray intranasal BID 06/21/24 Unknown History spray fenofibrate nanocrystallized 145 145 mg PO DAILY CHOLESTEROL 07/01/24 Unknown History mg tablet (Tricor) montelukast 10 mg tablet 10 mg PO QPM ASTHMA 07/01/24 Unknown History (Singulair) omega-3 fatty acids 1,000 mg 1,000 mg PO DAILY 07/01/24 Unknown History capsule ondansetron 4 mg disintegrating 4 mg PO DAILY PRN 07/01/24 Unknown History tablet torsemide 20 mg tablet 30 mg PO DAILY water pill 07/01/24 Unknown History diclofenac sodium 1 % topical gel 2 g topical TID PRN pain 08/11/24 Unknown History (Arthritis Pain (diclofenac)) doxycycline monohydrate 100 mg 100 mg PO BID 08/29/24 08/29/24 History capsule Allergy/AdvReac Type Severity Reaction Status Date / Time doxycycline Allergy Intermediate GI problems Verified 08/29/24 01:32 clindamycin Allergy Rash Verified 08/29/24 01:32 insulin detemir (From Allergy Rash Verified 08/29/24 01:32 Levemir U-100 Insulin) ciprofloxacin AdvReac Mild Upset Verified 08/29/24 01:32 Stomach amoxicillin trihydrate (From AdvReac Nausea Verified 08/29/24 01:32 Augmentin) potassium clavulanate (From AdvReac Nausea Verified 08/29/24 01:32 Augmentin) Family History Father Hypertension Colon cancer Cancer lung Mother Hypertension Heart disease Diabetes Other Hypercholesterolemia Melanoma Surgical History History of right and left heart catheterization (05/04/20) History of cholecystectomy History of laminectomy History of knee replacement procedure of left knee Social History Smoking Status: Former smoker how long ago did patient quit smokin years ago alcohol intake: never substance use type: does not use caffeine: Yes Type: coffee Number of servings: 2 additional social history: Uses aspirin. Does not use ibuprofen. ROS ROS ED Constitutional Constitutional ED: Denies chills or fever(s) Eyes Eyes: Denies blurry vision or change in vision ENT ENT ED: Denies rhinorrhea or sore throat Cardiovascular Cardiovascular: Denies chest pain, palpitations or racing heartbeat Respiratory/Chest Respiratory/Chest: Denies cough or dyspnea Gastrointestinal Gastrointestinal: Reports nausea; Denies abdominal pain, diarrhea or vomiting Genitourinary Genitourinary ED: Denies dysuria Musculoskeletal Musculoskeletal: Denies back pain or myalgias Integumentary Denies rash Neurologic Neurologic: Reports weakness; Denies headache(s) or paresthesias Hematologic/Lymphatic Hematologic/Lymphatic: Denies easy bleeding or easy bruising EXAM Physical Exam Const Vital Signs: 08/29/24 01:27 08/29/24 01:32 08/29/24 03:26 Temperature 97.5 F L Temperature Source Oral Pulse Rate 53 L 52 L Respiratory Rate 18 18 Respiratory Effort Normal Non-Labored Respiratory Pattern Normal Blood Pressure 146/39 H 131/54 H Blood Pressure Mean 74 79 Pulse Ox 93 96 Oxygen Delivery Method Nasal Cannula Oxygen Flow Rate (L/min) 6 08/29/24 03:57 Temperature 97.8 F Temperature Source Pulse Rate 52 L Respiratory Rate 18 Respiratory Effort Respiratory Pattern Blood Pressure 131/54 H Blood Pressure Mean 79 Pulse Ox 96 Oxygen Delivery Method Oxygen Flow Rate (L/min) Positive well nourished, well developed and obese General Appearance ED: well developed; Negative for pallor Nutritional Appearance: obese HEENT Reports dry mucous membranes HEENT Narrative: Mucous membranes are dry and tacky No tongue or lip swelling no oral lesions no airway edema or compromise No secondary findings to suggest infection Mouth ED: Yes dry mucous membranes Mouth: dry mucous membranes Eyes PERRL and EOMs intact bilaterally General Eye ED: Negative for scleral icterus Neck supple Neck Narrative: No nuchal rigidity or meningeal signs Chest Wall palpation of chest normal Chest Narrative: No bony deformity or crepitance Resp normal respiratory effort Resp Narrative: Breath sounds are diminished throughout with faint rhonchi noted in the bilateral bases but otherwise no nasal flaring retractions tachypnea or accessory muscle use Cardio regular rhythm Rate: bradycardia and other Other Details: Bradycardic rate with regular rhythm Radial and carotid pulses are equal and symmetric GI normal to inspection, nondistended, normoactive bowel sounds, non-tender, non-distended and no masses GI Narrative: Abdomen is obese soft nontender and nondistended with normal active bowel sounds. No voluntary guarding or rigidity or pulsatile mass. Auscultation: normoactive bowel sounds Palpation: soft Extremity Extremity Narrative: There is +1 pitting edema to the bilateral lower extremities that is equal and symmetric. Negative Homans' sign bilaterally Pelvis is stable. There is no shortening or external rotation of either lower extremity Patient is able to lift both legs and arms against gravity. Neuro oriented x3, CN's II-XII intact bilaterally and no sensory deficits noted Neuro Narrative: Patient is awake alert and oriented to person place and time GCS of 15 Cranial nerves II through XII are grossly intact without focal neurologic deficit Strength is plus 3 out of 5 bilaterally to all extremities NIH stroke scale score of 0 Sensorium / Orientation: alert Psych Psych Narrative: Patient has a depressed/flat affect Mood & Affect: depressed Skin no rashes or lesions noted and No skin turgor normal Skin Narrative: Skin turgor is increased General Skin Exam: Negative for jaundice or pallor MDM MDM MDM Narrative Medical decision making narrative: Patient arrived to the ER awake and alert with stable vitals and no focal neurologic exam. The weakness was generalized and therefore there is no need for a acute stroke activation. Based on the patient's weakness there is concern that this could be related to acute on chronic renal failure versus acute blood loss anemia versus UTI versus pneumonia versus hypercarbia versus viral infection such as COVID influenza or RSV. Secondary to this basic blood work was obtained which revealed just slight leukocytosis of 11.5 but no signs of acute blood loss anemia. Her creatinine is slightly elevated at 2.92 where her baseline is approximately 2 which could be the cause of her increased weakness. Her urine sample showed +1 bacteria but no white blood cells and was nitrite negative and therefore I feel this is most likely normal genital hermelindo and not true infection. X-ray showed changes consistent with congestive heart failure but did not completely rule out pneumonia but as the patient is afebrile has not had a cough and has known history of CHF I feel this is most likely the cause of the x-ray changes and therefore we will hold off on antibiotics at this time. There is also concern for CO2 retention based on her fatigue and weakness but venous blood gas shows a normal CO2 at 43. On reevaluation she is still having generalized weakness and she is not able to ambulate or perform her activities of daily living and therefore she is not safe to return home. Secondary to this I contacted the hospitalist who does agree with plan of care and will admit the patient for further treatment at this time. History & Record Review Discussion w/independent historian: Patient and Significant other Lab Data Attestation: I reviewed the patient's lab results. Labs: Laboratory Results - last 24 hr 08/29/24 08/29/24 02:11 02:55 WBC 11.5 H RBC 3.47 L Hgb 10.3 L Hct 34.5 L MCV 99.4 H MCH 29.7 MCHC 29.9 L RDW Std Deviation 58.2 H RDW Coeff of Jazzmine 16.0 H Plt Count 262 MPV 9.8 Immature Gran % (Auto) 1.500 H Neut % (Auto) 72.5 H Lymph % (Auto) 10.9 L [place] % (Auto) 12.2 H Eos % (Auto) 2.4 Baso % (Auto) 0.5 Absolute Neuts (auto) 8.3 H Absolute Lymphs (auto) 1.26 Nucleated RBC % 0 Sodium 140 Potassium 4.9 Chloride 102 Carbon Dioxide 32.0 Anion Gap 6 BUN 64 H Creatinine 2.92 H Estim Creat Clear Calc 18.49 Est GFR (MDRD) Af Amer 20 L Est GFR (MDRD) Non-Af 17 L BUN/Creatinine Ratio 21.9 H Glucose 250 H Calcium 10.1 Magnesium 1.9 Total Bilirubin 0.30 Direct Bilirubin 0.16 AST 19 ALT 20 Alkaline Phosphatase 47 B-Natriuretic Peptide 224.4 H Total Protein 6.6 Albumin 3.3 Globulin 3.3 TSH 4.030 H Urine Color Yellow Urine Clarity Clear Urine pH 6.0 Ur Specific [place] 1.025 Urine Protein 100 H Urine Glucose (UA) Normal Urine Ketones Negative Urine Occult Blood 25 H Urine Nitrite Negative Urine Bilirubin Negative Urine Urobilinogen Normal Ur Leukocyte Esterase Negative Urine RBC 0 SEEN Urine WBC 0 SEEN Ur Squamous Epith Cells 0 SEEN Urine Bacteria 1+ Urine Mucus 0 SEEN ABG Data ABG results: ABG 08/29/24 03:44 Specimen Type KURT Sample Site Not entered O2 % 6.0 VBG pH 7.42 VBG pO2 114 H VBG HCO3 28 H VBG Total CO2 29 VBG O2 Sat (Calc) 99 H VBG Base Excess 3 POC Mix VBG pCO2 Pt Tmp 43.0 O2 Delivery Device Cannula Radiography Diagnostic Testing: Clinical Impression(s) from Imaging Studies Chest X-Ray 08/29/24 01:47 IMPRESSION: 1. Findings suggest congestive heart failure. 2. Heterogeneous airspace disease at the lung bases may be secondary to pulmonary edema or pneumonia. Electronically Signed: Renetta Oliveira MD at 3:14 EDT Reading Location ID and State: [address] [place] [address] , Service support , Chest x-ray as interpreted by the emergency medicine physician reveals cardiomegaly with vascular crowding consistent with congestive heart failure without acute infiltrate or pneumothorax Management Discussion w/another healthcare provider: Hospitalist Discharge Plan Dx/Rx/DC Orders Clinical Impression: Generalized weakness, Morbid obesity with BMI of 40.0-44.9, adult, CHF (congestive heart failure), Paroxysmal atrial fibrillation, Essential (primary) hypertension, Unable to ambulate, Acute on chronic renal insufficiency Disposition Disposition: Acute Care [facility]
[2024-08-29 02:24] LABS: Absolute Lymphocyte Count 1.26 X10^3/uL (0.83-4.51); Absolute Neutrophil Count 8.3 X10^3/uL (2.0-7.7); Basophil# 0.06 X10^3/uL; Basophil% 0.5 % (0-1); Eosinophil# 0.28 X10^3/uL; Eosinophils% 2.4 % (0-5); Hematocrit 34.5 % (37-47); Hemoglobin 10.3 g/dL (12.0-15.0); Lymphocyte # 1.26 X10^3/ul (0.83-4.51); Lymphocyte % 10.9 % (19-41); Mean Corp Hgb Conc 29.9 g/dL (32-36); Mean Corpuscular Hgb 29.7 pg (27.0-32.0); Mean Corpuscular Volume 99.4 fL (81-99); Mean Platelet Vol. 9.8 fl (6.2-12.0); Monocyte% 12.2 % (0-10); NRBC Flagged by Analyzer 0 % (0-5); Neutrophil # 8.34 X10^3/uL (2.7-7.7); Neutrophil % 72.5 % (47-70); Platelet Count 262 K/mm3 (150-450); RBC Distribution Width SD 58.2 fl (35.1-43.9); Red Blood Count 3.47 M/mm3 (4.2-5.4); White Blood Count 11.5 K/mm3 (4.4-11.0)
[2024-08-29 02:49] LABS: AST(SGOT) 19 U/L (15-37); Alanine Aminotransfer ALT/SGPT 20 U/L (13-56); Albumin, Serum 3.3 g/dL (3.2-5.0); Alkaline Phosphatase 47 U/L (45-117); Anion Gap 6 (5-15); BUN 64 mg/dL (7-18); BUN/Creat Ratio 21.9 RATIO (10-20); Bilirubin, Direct 0.16 mg/dL (0.00-0.30); Calcium,Total 10.1 mg/dL (8.5-10.1); Chloride 102 mmol/L (98-107); Creatinine, Serum 2.92 mg/dL (0.55-1.02); EST Glomerular Filtration Rate 17 mL/min (>60); Est Glom Filt Rate - Afr Amer 20 mL/min (>60); Estimated Creatinine Clearance 18.49 ml/min; Globulin 3.3 g/dL (2.2-4.2); Glucose 250 mg/dL (74-106); Magnesium 1.9 mg/dL (1.6-2.6); Potassium 4.9 mmol/L (3.5-5.1); Protein, Total 6.6 g/dL (6.4-8.2); Sodium Level 140 mmol/L (136-145)
[2024-08-29 03:01] LABS: Mucous, Urine 0 SEEN /hpf (<or=2+); Red Blood Cells-Urine 0 SEEN /hpf (0-5); Squamous Epithelial Cells - UA 0 SEEN /hpf (5-10); White Blood Cells 0 SEEN /hpf (0-5)
[2024-08-29 03:03] LABS: Color, Urine Yellow (Yellow); Glucose, Dipstick Normal (Normal); Ketone-Dipstick Negative (Negative); Leukocyte Esterase-Dipstick Negative /ul (Negative); Nitrite-Dipstick Negative (Negative); Occult Blood-Urine 25 /ul (Negative); Protein-Dipstick 100 mg/dl (Negative); Specific Gravity, Urine 1.025 (1.002-1.030); Urine Bilirubin Dipstick Negative (Negative); Urine Clarity Clear (Clear); Urine Urobilinogen Normal (Normal)
[2024-08-29 03:25] LABS: Bacteria 1+ /hpf (None Seen)
[2024-08-29 03:48] LABS: Blood Gas Specimen Type VEN; O2 Delivery Device Cannula; SITE Not entered; VBG BASE EXCESS 3 mmol/L (-1.0-3.5); VBG Bicarbonate 28 mmol/L (22-26); VBG PO2 114 mmHg (25-40); VBG SO2 99 % (50-70); VBG TCO2 29 mmol/L (23-33); VBG pH 7.42 (7.32-7.42)
--- NOTE | 2024-08-29 03:49 | ED.RN ---
Per verbal order from Dr. Campbell, the 500ml bag was discontinued partially through the infusion.
--- NOTE | 2024-08-29 03:52 | HP.PCM.HOS_ITS ---
[facility] - General General Date of Admission: 08/29/24 Date of Service: 08/29/24 Chief Complaint: Generalized Weakness with Fall at Home. [facility] Narrative WALLACE BAZAN, is a 73 F who presents essential hypertension, hyperlipidemia, morbid obesity; with BMI of 45.6 this admission, CONCEPCION; noncompliant with CPAP, DM-2; of unknown control, paroxysmal atrial fibrillation; not on anticoagulation, chronic RBBB, history of sarcoidosis, secondary pulmonary arterial hypertension, history of lung abscess, history of asthma/COPD; with chronic hypoxic respiratory failure on 4 L nasal cannula continuously, history of COVID-19, CKD; stage III with a baseline serum creatinine ~2 mg/dL, chronic bilateral lower extremity venous insufficiency, chronic constipation, overactive bladder, history of melanoma, GERD, history of cholecystectomy, osteoporosis, history of L1 compression fracture; with history of laminectomy, gout, osteoarthritis; with history of Left TKR and chronic low back pain on as needed tramadol TID and recent admission here from May 03, 2024 to May 05, 2024 for treatment of AE of chronic CHF; with preserved LVEF followed by another admission here from May 21, 2024 to May 24, 2024 for AE of Chronic Diastolic CHF; with preserved LVEF plus CKD; stage III who re-presents to [facility] ER complaining of generalized weakness with fall at home. Ms. Bazan reports her symptoms began approximately one hour prior to admission when she got up for her recliner to go to bed when she noticed that she felt slightly weak - but she proceeded anyway surmising that she would likely feel better in the morning. She then went to bed and had to get up to use the restroom when she suddenly became so weak she felt like she could no longer hold herself up and then her legs gave out causing her to fall to the floor on her knees. She denies LOC or head trauma associated with her fall. Her then unsuccessfully tried to help her up off the floor and then he activated EMS. The patient currently feels like she cannot safely return home because she cannot care for herself. There was no report of fever, chills, nausea, vomiting, diarrhea, constipation, chest pain, palpitations or SOB. In the ER she was noted to have laboratory evidence of KARLA in the setting of CKD; stage III with an elevated serum creatinine of 2.92 mg/dL present on admission (up from her baseline of 2.21 mg/dL last admission) bharat dur to Adverse Drug Reaction to Torsemide complicated by clinical evidence of Generalized Weakness with Ambulatory Dysfunction and she was then admitted to the PCU for a stay that is expected to extend beyond 48 hours. [facility] Medical History (Updated 08/29/24 @ 06:[address] Vivek Logan, DO) Generalized weakness CHF (congestive heart failure) Respiratory insufficiency Chronic renal failure, stage 3 (moderate) Melanoma High triglycerides Hearing problem Back problem Arthritis Lower extremity edema COVID-19 Osteoporosis Diabetes Secondary pulmonary arterial hypertension Muscle spasm Constipation Overactive bladder Gout Allergic rhinitis Osteoporosis Compression fracture of L1 vertebra Intractable low back pain Debility Venous insufficiency of both lower extremities Hyperuricemia GERD (gastroesophageal reflux disease) Morbid obesity Noncompliance with CPAP treatment Obstructive sleep apnea Dysphagia Osteopenia Right bundle branch block (RBBB) Asthma Essential (primary) hypertension Paroxysmal atrial fibrillation Obesity (BMI 30-39.9) Pneumonia Lung abscess On home O2 Sarcoidosis Type 2 diabetes mellitus Chronic obstructive lung disease Hyperlipidemia Home Medications ?Medication ?Instructions ?Recorded ?Last Taken ?Type fluticasone propionate 50 2 spray NASAL DAILY PRN PRN NASAL 06/21/17 11/19/20 History mcg/actuation nasal CONGESTION spray,suspension febuxostat 40 mg tablet (Uloric) 40 mg PO DAILY GOUT 12/30/18 11/19/20 History fluticasone 500 mcg-salmeterol 50 1 inh inhalation BID SHORTNESS OF 07/17/20 11/19/20 History mcg/dose blistr powdr for BREATH inhalation (Advair Diskus) aspirin 81 mg tablet,delayed 81 mg PO DAILY HEART HEALTH #1 TAB 02/08/21 Unknown Rx release loratadine 10 mg tablet (Claritin) 10 mg PO DAILY ALLERGY 01/14/22 Unknown History mirabegron 50 mg tablet,extended 50 mg PO DAILY OVERACTIVE BLADDER 01/14/22 Unknown History release 24 hr (Myrbetriq) tiotropium bromide 1.25 2 puff inhalation DAILY sob 01/14/22 Unknown History mcg/actuation mist for inhalation (Spiriva Respimat) insulin glargine 100 unit/mL (3 38 unit subcut QPM DIABETES 12/11/22 Unknown History mL) subcutaneous pen levalbuterol HCl 0.63 mg/3 mL 0.63 mg inhalation Q6H PRN WHEEZING 12/11/22 Unknown History solution for nebulization pen needle, diabetic 32 gauge x #400 ea 01/22/23 Unknown Rx (BD Ultra-Fine Sonam Pen Needle) tramadol 50 mg tablet 50 mg PO .COMPLEX PRN pain 03/03/23 08/29/24 History pantoprazole 40 mg tablet,delayed 40 mg PO DAILY GERD 05/07/23 Unknown History release Lactobacillus acidophilus 10 mg PO DAILY probiotic 06/16/23 Unknown History (Acidophilus capsule) budesonide 0.5 mg/2 mL suspension 0.5 mg inhalation QODAY PRN 06/16/23 Unknown History for nebulization BREATHING linaclotide 145 mcg capsule 145 mcg PO DAILY IRRITABLE BOWELS 06/16/23 Unknown History (Linzess) sour scott extract 1,000 mg 1,200 mg PO DAILY supplement 06/16/23 Unknown History capsule (Tart Scott Extract) flash glucose sensor (FreeStyle #6 ea 01/18/24 Unknown Rx Garett 2 Sensor kit) diltiazem HCl 180 mg capsule,24 180 mg PO DAILY BLOOD PRESSURE 03/21/24 Unknown Rx hr,extended release (Tiazac) #90 caps insulin aspart U-100 100 unit/mL See Rx Instructions subcut 05/03/24 Unknown History (3 mL) subcutaneous pen (Novolog .COMPLEX insulin FlexPen U-100 Insulin aspart) acetaminophen 650 mg 1,300 mg PO Q12H PRN pain 05/21/24 Unknown History tablet,extended release (8 Hour Pain Reliever) cyanocobalamin (vitamin B-12) 1,000 mcg PO DAILY 05/21/24 Unknown History 1,000 mcg tablet insulin aspart U-100 100 unit/mL 20 unit subcut .COMPLEX 05/21/24 Unknown History (3 mL) subcutaneous pen (Novolog FlexPen U-100 Insulin aspart) ipratropium 0.5 mg-albuterol 3 mg 3 ml inhalation Q4H PRN PRN 05/21/24 Unknown History (2.5 mg base)/3 mL nebulization shortness of breath soln lidocaine 5 % topical patch 2 patch topical DAILY PRN pain 05/21/24 Unknown History polyethylene glycol 3350 17 17 g PO QHS constipation 05/21/24 Unknown History gram/dose oral powder (ClearLax) azelastine 137 mcg (0.1 %) nasal 2 spray intranasal BID 06/21/24 Unknown History spray fenofibrate nanocrystallized 145 145 mg PO DAILY CHOLESTEROL 07/01/24 Unknown History mg tablet (Tricor) montelukast 10 mg tablet 10 mg PO QPM ASTHMA 07/01/24 Unknown History (Singulair) omega-3 fatty acids 1,000 mg 1,000 mg PO DAILY 07/01/24 Unknown History capsule ondansetron 4 mg disintegrating 4 mg PO DAILY PRN 07/01/24 Unknown History tablet torsemide 20 mg tablet 30 mg PO DAILY water pill 07/01/24 Unknown History diclofenac sodium 1 % topical gel 2 g topical TID PRN pain 08/11/24 Unknown History (Arthritis Pain (diclofenac)) doxycycline monohydrate 100 mg 100 mg PO BID 08/29/24 08/29/24 History capsule Allergy/AdvReac Type Severity Reaction Status Date / Time doxycycline Allergy Intermediate GI problems Verified 08/29/24 01:32 clindamycin Allergy Rash Verified 08/29/24 01:32 insulin detemir (From Allergy Rash Verified 08/29/24 01:32 Levemir U-100 Insulin) ciprofloxacin AdvReac Mild Upset Verified 08/29/24 01:32 Stomach amoxicillin trihydrate (From AdvReac Nausea Verified 08/29/24 01:32 Augmentin) potassium clavulanate (From AdvReac Nausea Verified 08/29/24 01:32 Augmentin) Family History Father Hypertension Colon cancer Cancer lung Mother Hypertension Heart disease Diabetes Other Hypercholesterolemia Melanoma Surgical History History of right and left heart catheterization (05/04/20) History of cholecystectomy History of laminectomy History of knee replacement procedure of left knee Social History Smoking Status: Former smoker how long ago did patient quit smokin years ago alcohol intake: never substance use type: does not use caffeine: Yes Type: coffee Number of servings: 2 additional social history: Uses aspirin. Does not use ibuprofen. ROS ROS Narrative Review of Systems: Constitutional: Patient admits to generalized weakness but she denies fever or chills. Eyes: Patient denies changes in vision or discharge from eyes. ENT: Patient denies runny nose, sore throat or ear pain. Resp: Patient admits to ACEVEDO but she denies cough. GI: Patient admits to nausea but she denies abdominal pain, constipation or diarrhea. : Patient denies dysuria or hematuria. MSK: Patient denies arthralgias or myalgias. Skin: Patient denies abscess, rash or jaundice. Psych: Patient denies symptoms of uncontrolled depression or anxiety. Neuro: Patient denies headache, paresthesias or focal neurologic deficits. Allergy: Patient denies lip swelling, tongue swelling or urticaria. Hematology: Patient denies easy bleeding or easy bruisability. Endocrinology: Patient denies polyuria, polydipsia or polyphagia. 14 point ROS otherwise negative except for positives noted above. Vital Signs Vital Signs Vital Signs: 08/29/24 01:27 08/29/24 01:32 08/29/24 03:26 Temperature 97.5 F L Temperature Source Oral Pulse Rate 53 L 52 L Respiratory Rate 18 18 Respiratory Effort Normal Non-Labored Respiratory Pattern Normal Blood Pressure 146/39 H 131/54 H Blood Pressure Mean 74 79 Pulse Ox 93 96 Oxygen Delivery Method Nasal Cannula Oxygen Flow Rate (L/min) 6 Weight Weight: 225 lb 12.054 oz Body Mass Index (BMI) 45.6 Physical Exam Const alert, oriented x3 and no apparent distress Constitutional Narrative: Patient is morbidly obese with chronically ill appearance. General Appearance: cooperative HEENT normocephalic, head/scalp atraumatic and hearing grossly normal bilaterally HEENT Narrative: Mucous membranes dry. Eyes PERRL and EOMs intact bilaterally Neck no lymphadenopathy and supple Resp normal respiratory effort, no retractions and no use of accessory muscles Resp Narrative: Diminished breath sounds throughout with scattered faint rhonci that partially clear with cough. Auscultation: rhonchi Cardio regular rate and regular rhythm GI normal to inspection, nondistended, normoactive bowel sounds, soft to palpation, non-tender and non-distended GI Narrative: Morbidly obese. Extremity normal to inspection, full ROM and no clubbing, cyanosis or edema Skin Skin Narrative: Patient has no evidence of jaundice or rash. Neuro oriented x3, CN's II-XII intact bilaterally, moves all extremities and no focal motor deficits Sensorium / Orientation: awake, alert, oriented to person, oriented to place and oriented to time Speech: speech normal Psych affect normal Results Medical Records Data Attestation: I reviewed the patient's medical records Lab / Micro Data Attestation: I reviewed the patient's lab results. 08/29/24 02:11 08/29/24 02:11 Labs: Laboratory Results - last 24 hr 08/29/24 02:11: WBC 11.5 H, RBC 3.47 L, Hgb 10.3 L, Hct 34.5 L, MCV 99.4 H, MCH 29.7, MCHC 29.9 L, RDW Std Deviation 58.2 H, RDW Coeff of Jazzmine 16.0 H, Plt Count 262, MPV 9.8, Immature Gran % (Auto) 1.500 H, Neut % (Auto) 72.5 H, Lymph % (Auto) 10.9 L, Rice % (Auto) 12.2 H, Eos % (Auto) 2.4, Baso % (Auto) 0.5, A bsolute Neuts (auto) 8.3 H, Absolute Lymphs (auto) 1.26, Nucleated RBC % 0, Sodium 140, Potassium 4.9, Chloride 102, Carbon Dioxide 32.0, Anion Gap 6, BUN 64 H, Creatinine 2.92 H, Estim Creat Clear Calc 18.49, Est GFR (MDRD) Af Amer 20 L, Est GFR (MDRD) Non-Af 17 L, BUN/Creatinine Ratio 21.9 H, Glucose 250 H, Calcium 10.1, Magnesium 1.9, Total Bilirubin 0.30, Direct Bilirubin 0.16, AST 19, ALT 20, Alkaline Phosphatase 47, Total Protein 6.6, Albumin 3.3, Globulin 3.3, TSH 4.030 H 08/29/24 02:55: Urine Color Yellow, Urine Clarity Clear, Urine pH 6.0, Ur Specific [place] 1.025, Urine Protein 100 H, Urine Glucose (UA) Normal, Urine Ketones Negative, Urine Occult Blood 25 H, Urine Nitrite Negative, Urine Bilirubin Negative, Urine Urobilinogen Normal, Ur Leukocyte Esterase Negative, Urine RBC 0 SEEN, Urine WBC 0 SEEN, Ur Squamous Epith Cells 0 SEEN, Urine Bacteria 1+, Urine Mucus 0 SEEN Micro: Microbiology 08/29/24 02:12 Mucosa - Nose SARS-CoV-2, Influenza & RSV (PCR) - Final ABG Data ABG results: ABG 08/29/24 03:44 Specimen Type KURT Sample Site Not entered O2 % 6.0 VBG pH 7.42 VBG pO2 114 H VBG HCO3 28 H VBG Total CO2 29 VBG O2 Sat (Calc) 99 H VBG Base Excess 3 POC Mix VBG pCO2 Pt Tmp 43.0 O2 Delivery Device Cannula Imaging Radiology Impression Chest X-Ray 08/29/24 01:47 IMPRESSION: 1. Findings suggest congestive heart failure. 2. Heterogeneous airspace disease at the lung bases may be secondary to pulmonary edema or pneumonia. Electronically Signed: Renetta Oliveira MD at 3:14 EDT Reading Location ID and State: [address] [place] [address] , Service support , Assessment & Plan Assessment/Plan (1) KARLA (acute kidney injury): (2) CKD (chronic kidney disease) stage 3, GFR 30-59 ml/min: QUALIFIERS: Chronic kidney disease stage 3 subtype: stage 3b (GFR 30-44) Qualified Code(s): N18.32 - Chronic kidney disease, stage 3b (3) Generalized weakness: (4) Ambulatory dysfunction: (5) Morbid obesity with BMI of 40.0-44.9, adult: PLAN: Plan 1. KARLA in the setting of CKD; stage III with an elevated serum creatinine of 2.92 mg/dL present on admission (up from her baseline of 2.21 mg/dL last admission) - Admit to PCU. Give NS IVF and then recheck BMP in the AM to follow trend. Avoid potentially nephrotoxic agents. 2. Adverse Drug Reaction to Torsemide precipitating #1 - Hold Torsemide and monitor for improvement. 3. Generalized Weakness with Ambulatory Dysfunction arising from #1 & #2 - PT/OT and Case Management to consult and treat on-rounds in the AM for further recommendations with help appreciated in advance. 4. Morbid obesity; with BMI of 45.6 this admission plus CONCEPCION; noncompliant with CPAP complicating #1 - #3 - Weight loss will be recommended. Check TSH. Encourage CPAP use. 5. Recent admission here from May 03, 2024 to May 05, 2024 for treatment of AE of chronic CHF; with preserved LVEF followed by another admission here from May 21, 2024 to May 24, 2024 for AE of Chronic Diastolic CHF; with preserved LVEF plus CKD; stage III - noted. 6. History of asthma/COPD; with chronic hypoxic respiratory failure on 4 L nasal cannula continuously adding to the pathology of #1 - #4 - Stable with no evidence of acute flare at this time. Give nebulizers prn. 7. Essential hypertension - Maintain home regimen but avoid potentially nephrotoxic agents. 8. Hyperlipidemia - Hold Fenofibrate with creatinine clearance < 30 mg/dL. 9. DM-2; of unknown control - ADA diet. FSBS q. AC/HS plus SSI. 10. Paroxysmal atrial fibrillation; not on anticoagulation - Stable. 11. Chronic RBBB - Noted. 12. History of sarcoidosis - Noted. 13. Secondary pulmonary arterial hypertension - Stable. 14. History of lung abscess - Noted. 15. History of COVID-19 - Noted. 16. Chronic bilateral lower extremity venous insufficiency - Stable. 17. Chronic constipation - Stable. 18. Overactive bladder - Stable. 19. History of melanoma - Noted. 20. GERD - Continue Protonix BID. 21. History of cholecystectomy - Noted. 22. Osteoporosis, history of L1 compression fracture; with subsequent laminectomy - Stable. 23. Gout - Stable with no evidence of acute flare. 24. Osteoarthritis; with history of Left TKR and chronic low back pain on as needed tramadol TID - Continue prn Tramadol for severe (level 6-10/10) pain. 25. DVT prophylaxis - Heparin 5,000 units sq BID. Total time: Approximately 75 minutes. Charges/Coding Visit Charges Inpatient E&M: 37551 Init Hosp L3
[2024-08-29 04:03] LABS: BNP,B-Type NATRIURETIC PEPTIDE 224.4 pg/mL (0-100)
[2024-08-29 04:09] LABS: Procalcitonin 0.23 ng/mL (0.00-0.09)
[2024-08-29 06:04] LABS: Phosphorus 6.2 mg/dL (2.5-4.9)
[2024-08-29] MEDS: 0.9% Normal Saline (1000mL) 1,000 ML 70 ML IV ×2 (06:04→20:03)
[2024-08-29 08:08] LABS: Hemoglobin A1c 6.3 % (3.8-5.6)
[2024-08-29 09:33] LABS: Bedside Glucose 168 mg/dL (74-106)
--- NOTE | 2024-08-29 09:36 | EKG12_ITS ---
Test Reason : Blood Pressure : / mmHG Vent. Rate : 049 BPM Atrial Rate : 000 BPM P-R Int : 000 ms QRS Dur : 154 ms QT Int : 494 ms P-R-T Axes : 000 127 069 degrees QTc Int : 446 ms Junctional rhythm Non-specific intra-ventricular conduction block Possible Right ventricular hypertrophy Cannot rule out Septal infarct , age undetermined Lateral infarct , age undetermined Abnormal ECG When compared with ECG of 29-AUG-2024 01:49, Previous ECG has undetermined rhythm, needs review Confirmed by IRA FELIX, KEREN ([id number]), desk editor KATHI COLBERT ([id number]) on 09/01/2024 9:37:24 AM Referred By: SPENCER Confirmed By:KEREN ROTH MD
[2024-08-29] MEDS: Azelastine HCl NASAL.SRY 2 SPRAY NASAL ×2 (10:18→20:33)
[2024-08-29] MEDS: Aspirin E.C. 81 MG Tablet PO (10:19)
[2024-08-29] MEDS: Febuxostat 40 MG TABLET PO (10:20)
[2024-08-29] MEDS: Pantoprazole Sodium 40 MG Tablet PO (10:20)
[2024-08-29] MEDS: Omega-3 Acid Ethyl Esters 1 GM Capsule PO (10:20)
[2024-08-29] MEDS: Vibegron 75 MG TABLET PO (10:20)
[2024-08-29] MEDS: Lactobacillis Acidophilus 1 CAP PO (10:20)
[2024-08-29] MEDS: Cyanocobalamin 500 MCG Tablet 1000 MCG PO (10:20)
[2024-08-29] MEDS: Doxycycline 100 MG CAPSULE PO ×2 (10:21→20:33)
[2024-08-29] MEDS: Loratadine 10 MG Tablet PO (10:21)
[2024-08-29] MEDS: Lidocaine 5% Patch 2 PATCH TOPICAL (10:23)
[2024-08-29] MEDS: Insulin Lispro 100 UNIT/ML INSULN.PEN 12 UNIT SC ×2 (10:33→13:36)
--- NOTE | 2024-08-29 10:48 | CASEMGMT ---
SARA BARON Assessment Face to Face with patient for initial transition planning/care coordination assessment. RN LORAINE introduced self and role at [facility], pt voices understanding. Pt is A&Ox4 and is resting comfortably in bed and is calm. Care providers, pharmacy, and demographics verified. Admitting dx: KARLA in the setting of CKD Stage III LACE Strata: 3 PCP: Veronica Oquendo Specialists: Quintin (Nephro), JENISE, Danny (Pulm), Carlota (Podiatry), Jong (Uro), Luanne (GI), Carol (PM), Danny (ENT), (Endo) Preferred Pharmacy: [facility] Insurance: Phyllis PORTER, WPS for life Prescription Benefit: Yes LNOK: Willian Ling (H), Jessica Armas (Edwardo) Living Arrangements: Pt lives with her in a single story home with 3 steps to enter with a handrail ADLs/IADLs: Pt requires assistance and states that her is able to help her Transportation: Pt does not drive. Pt drives. Denies concerns DME: Home oxygen through [employer]. Verified 2L continuous and 4L with exertion. denies PAP. Pt also has a pulse ox and nebulizer. Pt also states that she has the following: CBGM and sufficient supplies, Shower chair, grab bars, rollator, and a hospital bed. HHC/SNF: Hx with [facility] HH. Hx at [facility] TCU and the [facility]. Pt states that she did not have a good experience at the [facility] Pt?s goal: Return to PLOF Palliative: Pt states that she is not active with Palliative and declines wanting a referral sent at this time Plan: TBD. Anticipate Home with HH vs SNF. 6-Click is 14. PT/OT pending. Pt states that she is unsure of what she will want or need at time of DC. CM/SW to follow. Report given to ROUNDSMAN CM. John Oliveira RN, CM
[2024-08-29 12:33] LABS: Bedside Glucose 159 mg/dL (74-106)
[2024-08-29] MEDS: Ipratropium/Albuterol Sulfate 3 ML AMPUL.NEB INHALATION ×2 (14:43→19:32)
[2024-08-29] MEDS: Budesonide Respules 0.5 MG/2 ML AMPUL.NEB. INHALATION ×2 (14:43→19:32)
--- NOTE | 2024-08-29 15:48 | PCM.PN.HOSP ---
Objective Data Objective Data Vital Signs: Vital Signs Temp Pulse Resp BP Pulse Ox O2 Del Method O2 Flow Rate 97.4 F L 52 L 18 115/44 L 94 Nasal Cannula 6 08/29/24 05:55 08/29/24 05:55 08/29/24 05:55 08/29/24 05:55 08/29/24 05:55 08/29/24 07:24 08/29/24 07:24 Oxygen Flow Rate (L/min) 6 Oxygen Delivery Method Nasal Cannula Weight: 220 lb 0.341 oz Body Mass Index (BMI) 44.4 Intake & Output: Intake and Output for Last 24 Hours 08/27/24 08/28/24 08/29/24 23:59 23:59 23:59 Intake Total 350 / 350 Balance 350 / 350 Lab / Micro Data 08/29/24 02:11 08/29/24 02:11 Labs: Laboratory Results - last 24 hr 08/29/24 02:11: WBC 11.5 H, RBC 3.47 L, Hgb 10.3 L, Hct 34.5 L, MCV 99.4 H, MCH 29.7, MCHC 29.9 L, RDW Std Deviation 58.2 H, RDW Coeff of Jazzmine 16.0 H, Plt Count 262, MPV 9.8, Immature Gran % (Auto) 1.500 H, Neut % (Auto) 72.5 H, Lymph % (Auto) 10.9 L, [place] % (Auto) 12.2 H, Eos % (Auto) 2.4, Baso % (Auto) 0.5, Absolute Neuts (auto) 8.3 H, Absolute Lymphs (auto) 1.26, Nucleated RBC % 0, Sodium 140, Potassium 4.9, Chloride 102, Carbon Dioxide 32.0, Anion Gap 6, BUN 64 H, Creatinine 2.92 H, Estim Creat Clear Calc 18.49, Est GFR (MDRD) Af Amer 20 L, Est GFR (MDRD) Non-Af 17 L, BUN/Creatinine Ratio 21.9 H, Glucose 250 H, Calcium 10.1, Phosphorus 6.2 H, Magnesium 1.9 08/29/24 02:11: Magnesium Cancelled, Total Bilirubin 0.30, Direct Bilirubin 0.16, AST 19, ALT 20, Alkaline Phosphatase 47, B-Natriuretic Peptide 224.4 H, Total Protein 6.6, Albumin 3.3, Globulin 3.3, TSH 4.030 H 08/29/24 02:11: TSH Cancelled 08/29/24 02:55: Urine Color Yellow, Urine Clarity Clear, Urine pH 6.0, Ur Specific [place] 1.025, Urine Protein 100 H, Urine Glucose (UA) Normal, Urine Ketones Negative, Urine Occult Blood 25 H, Urine Nitrite Negative, Urine Bilirubin Negative, Urine Urobilinogen Normal, Ur Leukocyte Esterase Negative, Urine RBC 0 SEEN, Urine WBC 0 SEEN, Ur Squamous Epith Cells 0 SEEN, Urine Bacteria 1+, Urine Mucus 0 SEEN 08/29/24 03:33: Procalcitonin 0.23 H Micro: Microbiology 08/29/24 02:12 Mucosa - Nose SARS-CoV-2, Influenza & RSV (PCR) - Final ABG Data ABG results: ABG 08/29/24 03:44 Specimen Type KURT Sample Site Not entered O2 % 6.0 VBG pH 7.42 VBG pO2 114 H VBG HCO3 28 H VBG Total CO2 29 VBG O2 Sat (Calc) 99 H VBG Base Excess 3 POC Mix VBG pCO2 Pt Tmp 43.0 O2 Delivery Device Cannula Radiography Diagnostic Testing: Radiology Impression Chest X-Ray 08/29/24 01:47 IMPRESSION: 1. Findings suggest congestive heart failure. 2. Heterogeneous airspace disease at the lung bases may be secondary to pulmonary edema or pneumonia. Electronically Signed: Renetta Oliveira MD at 3:14 EDT Reading Location ID and State: [address] [place] [address] , Service support , Physical Exam Narrative Seen and examined patient found bradycardia, heart rate in 50s but sometimes dips down into 30s. Twelve-lead EKG done which shows junctional bradycardia, 49 bpm, nonspecific IVCD, possible RVH. QTc 446 ms. At home patient was on carvedilol 6.25 mg twice daily and diltiazem 180 mg daily which is on hold. Physical exam General: Alert, Oriented x3, Cooperative HEENT: Atraumatic, PERRLA, EOMI, Normocephalic Oral: No Gingival or Mucosal Lesions/ Ulcerations Neck: Supple, No JVD, Negative Carotid Bruits Chest wall/Lungs: Air entry diminished in bilateral lung bases. No crepitation/rhonchi Cardiovascular: Junctional rhythm, severe bradycardia. Normal S1, Normal S2, No M/G/R Abdomen: Bowel Sounds Present, Soft, Non Tender, Non-Distended : No dysuria. No renal angle tenderness. No suprapubic tenderness. Extremities: No edema, Capillary Refill Less than 3 Seconds Skin: No rashes, No breakdown Musculoskeletal: No Tenderness to Palpation of Joints or Extremities Neurological: Cranial nerves II-XII grossly intact, DTR 2+/4. No acute focal neurological deficit. Psych/Mental Status: Normal Affect, Appropriate. Assessment & Plan Assessment/Plan (1) KARLA (acute kidney injury): (2) CKD (chronic kidney disease) stage 3, GFR 30-59 ml/min: QUALIFIERS: Chronic kidney disease stage 3 subtype: stage 3b (GFR 30-44) Qualified Code(s): N18.32 - Chronic kidney disease, stage 3b (3) Generalized weakness: (4) Ambulatory dysfunction: (5) Morbid obesity with BMI of 40.0-44.9, adult: PLAN: Plan This is 73-year-old female was admitted from ED for generalized weakness, felt weak, slid down on the floor. Could not get up again. Heart rate was found in 50s. Chronically on home oxygen 4 to 5 L/min 24/7. 1. KARLA in the setting of CKD; stage III B with increase serum creatinine of 2.92 mg/dL present on admission (up from her baseline of 2.21 mg/dL last admission) - Admit to PCU. Give NS IVF. Monitor BMP. Probably due to torsemide. Torsemide on hold 2. Generalized Weakness with Ambulatory Dysfunction arising from #1 & #2 - PT/OT and Case Management to consult and treat on-rounds in the AM for further recommendations with help appreciated in advance. 4. Morbid obesity; with BMI of 45.6 this admission plus CONCEPCION; noncompliant with CPAP complicating #1 - #3 - Weight loss will be recommended. Check TSH. Encourage CPAP use. 5. Severe junctional rhythm with PAF, chronic RBBB with with severe bradycardia. Recent admission here from May 03, 2024 to May 05, 2024 for treatment of AE of chronic CHF; with preserved LVEF followed by another admission here from May 21, 2024 to May 24, 2024 for AE of Chronic Diastolic CHF; with preserved LVEF plus CKD; stage III. Heart rate has recovered currently in the 70s. Glucagon 1 mg IV was ordered but her heart rate recovered therefore did not require. Not on anticoagulation 6. Chronic asthma/COPD; with chronic hypoxic respiratory failure on 4 L nasal cannula. On ambulation. 7. Essential hypertension - Maintain home regimen but avoid potentially nephrotoxic agents. 8. Hyperlipidemia - Hold Fenofibrate with creatinine clearance < 30 mg/dL. 9. DM-2; oADA diet. FSBS q. AC/HS plus SSI. 10. Multiple chronic comorbidities which include sarcoidosis, secondary pulmonary hypertension, chronic bilateral lower extremity insufficiency, GERD, osteoporosis, gout, overactive bladder and degenerative arthritis: Patient has history of L1 compression fracture with subsequent laminectomy. PT and OT ordered. DVT prophylaxis - Heparin 5,000 units sq BID.
[2024-08-29 17:15] LABS: Bedside Glucose 131 mg/dL (74-106)
[2024-08-29] MEDS: Insulin Lispro 100 UNIT/ML INSULN.PEN 20 UNIT SC (18:04)
[2024-08-29] MEDS: Insulin Glargine-YFGN 100 UNIT/ML Pen 26 UNIT SC (20:32)
[2024-08-29] MEDS: Montelukast 10 MG Tablet PO (20:33)
[2024-08-29] MEDS: Senna/Docusate Sodium 1 Tablet PO (20:34)
[2024-08-29] MEDS: Polyethylene Glycol 3350 17 GM PACKET PO (20:34)
[2024-08-29] MEDS: Acetaminophen 500 MG Tablet PO (20:48)
[2024-08-29 21:35] LABS: Bedside Glucose 129 mg/dL (74-106)
[2024-08-30] VITALS (8 sets, daily range): BP systolic 107–160; BP diastolic 58–76; PULSE 67–76; RESP 15–24; TEMP 36.3–36.6; O2SAT 93–98; BMI 46.5
[2024-08-30] MEDS: Acetaminophen 500 MG Tablet PO (03:19)
[2024-08-30 06:26] LABS: Absolute Lymphocyte Count 0.72 X10^3/uL (0.83-4.51); Absolute Neutrophil Count 3.6 X10^3/uL (2.0-7.7); Basophil# 0.03 X10^3/uL; Basophil% 0.6 % (0-1); Eosinophil# 0.15 X10^3/uL; Eosinophils% 2.9 % (0-5); Hematocrit 28.9 % (37-47); Hemoglobin 8.7 g/dL (12.0-15.0); Lymphocyte # 0.72 X10^3/ul (0.83-4.51); Mean Corp Hgb Conc 30.1 g/dL (32-36); Mean Corpuscular Hgb 29.8 pg (27.0-32.0); Mean Platelet Vol. 9.7 fl (6.2-12.0); Monocyte# 0.62 X10^3/uL; NRBC Flagged by Analyzer 0 % (0-5); Neutrophil # 3.58 X10^3/uL (2.7-7.7); Neutrophil % 69.3 % (47-70); Platelet Count 169 K/mm3 (150-450); RBC Distribution Width CV 15.8 % (11.6-14.6); RBC Distribution Width SD 57.1 fl (35.1-43.9); Red Blood Count 2.92 M/mm3 (4.2-5.4); White Blood Count 5.2 K/mm3 (4.4-11.0)
[2024-08-30 06:49] LABS: AST(SGOT) 21 U/L (15-37); Alanine Aminotransfer ALT/SGPT 18 U/L (13-56); Albumin, Serum 2.8 g/dL (3.2-5.0); Alkaline Phosphatase 37 U/L (45-117); Anion Gap 5 (5-15); BUN 61 mg/dL (7-18); BUN/Creat Ratio 22.8 RATIO (10-20); Calcium,Total 9.6 mg/dL (8.5-10.1); Chloride 107 mmol/L (98-107); Creatinine, Serum 2.68 mg/dL (0.55-1.02); EST Glomerular Filtration Rate 19 mL/min (>60); Est Glom Filt Rate - Afr Amer 22 mL/min (>60); Estimated Creatinine Clearance 20.38 ml/min; Globulin 2.8 g/dL (2.2-4.2); Glucose 99 mg/dL (74-106); Potassium 4.6 mmol/L (3.5-5.1); Protein, Total 5.6 g/dL (6.4-8.2); Sodium Level 142 mmol/L (136-145)
[2024-08-30] MEDS: Ipratropium/Albuterol Sulfate 3 ML AMPUL.NEB INHALATION ×3 (06:57→20:15)
[2024-08-30] MEDS: Budesonide Respules 0.5 MG/2 ML AMPUL.NEB. INHALATION ×2 (06:57→20:15)
--- NOTE | 2024-08-30 07:53 | PCM.PN.HOSP ---
Reason for Visit Reason for Visit: Diagnoses Morbid (severe) obesity due to excess calories (08/29/24) Acute kidney failure, unspecified (08/29/24) Chronic kidney disease, stage 3b (08/29/24) Difficulty in walking, not elsewhere classified (08/29/24) Weakness (08/29/24) Body mass index [BMI] 40.0-44.9, adult (08/29/24) Objective Data Objective Data Vital Signs: Vital Signs Temp Pulse Resp BP Pulse Ox O2 Del Method O2 Flow Rate 97.3 F L 71 20 H 137/58 H 94 Nasal Cannula 5 08/30/24 02:45 08/30/24 06:58 08/30/24 06:58 08/30/24 02:45 08/30/24 06:58 08/30/24 06:58 08/30/24 06:58 Oxygen Flow Rate (L/min) 5 Oxygen Delivery Method Nasal Cannula Weight: 230 lb 2.601 oz Body Mass Index (BMI) 46.5 Intake & Output: Intake and Output for Last 24 Hours 08/28/24 08/29/24 08/30/24 23:59 23:59 23:59 Intake Total 2303.83 / 2303.83 Output Total 800 / 800 Balance 1503.83 / 1503.83 Lab / Micro Data 08/30/24 05:14 08/30/24 05:14 Labs: Laboratory Results - last 24 hr 08/29/24 06:33: Hemoglobin A1c 6.3 H 08/29/24 09:01: POC Glucose 168 H 08/29/24 12:14: POC Glucose 159 H 08/29/24 16:58: POC Glucose 131 H 08/29/24 20:25: POC Glucose 129 H 08/30/24 05:14: WBC 5.2, RBC 2.92 L, Hgb 8.7 L, Hct 28.9 L, MCV 99.0, MCH 29.8, MCHC 30.1 L, RDW Std Deviation 57.1 H, RDW Coeff of Jazzmine 15.8 H, Plt Count 169, MPV 9.7, Immature Gran % (Auto) 1.200 H, Neut % (Auto) 69.3, Lymph % (Auto) 14.0 L, [place] % (Auto) 12.0 H, Eos % (Auto) 2.9, Baso % (Auto) 0.6, Absolute Neuts (auto) 3.6, Absolute Lymphs (auto) 0.72 L, Nucleated RBC % 0, Sodium 142, Potassium 4.6, Chloride 107, Carbon Dioxide 30.0, Anion Gap 5, BUN 61 H, Creatinine 2.68 H, Estim Creat Clear Calc 20.38, Est GFR (MDRD) Af Amer 22 L, Est GFR (MDRD) Non-Af 19 L, BUN/Creatinine Ratio 22.8 H, Glucose 99, Calcium 9.6, Total Bilirubin 0.40, AST 21, ALT 18, Alkaline Phosphatase 37 L, Total Protein 5.6 L, Albumin 2.8 L, Globulin 2.8, Albumin/Globulin Ratio 1.0 Micro: Microbiology 08/29/24 02:12 Mucosa - Nose SARS-CoV-2, Influenza & RSV (PCR) - Final Physical Exam Narrative Seen and examined Patient heart rate has recovered. Currently sinus rhythm. No chest pain or shortness of breath. Her hemoglobin dropped. Physical exam General: Alert, Oriented x3, Cooperative, chronic fatigue. HEENT: Atraumatic, PERRLA, EOMI, Normocephalic Oral: No Gingival or Mucosal Lesions/ Ulcerations Neck: Supple, No JVD, Negative Carotid Bruits Chest wall/Lungs: Air entry diminished in bilateral lung bases. No crepitation/rhonchi Cardiovascular: Junctional rhythm, regular in 70s normal S1, Normal S2, No M/G/R Abdomen: Bowel Sounds Present, Soft, Non Tender, Non-Distended : No dysuria. No renal angle tenderness. No suprapubic tenderness. Extremities: No edema, Capillary Refill Less than 3 Seconds Skin: No rashes, No breakdown Musculoskeletal: No Tenderness to Palpation of Joints or Extremities Neurological: Cranial nerves II-XII grossly intact, DTR 2+/4. No acute focal neurological deficit. Psych/Mental Status: Normal Affect, Appropriate. Assessment & Plan Assessment/Plan (1) KARLA (acute kidney injury): (2) CKD (chronic kidney disease) stage 3, GFR 30-59 ml/min: QUALIFIERS: Chronic kidney disease stage 3 subtype: stage 3b (GFR 30-44) Qualified Code(s): N18.32 - Chronic kidney disease, stage 3b (3) Generalized weakness: (4) Ambulatory dysfunction: (5) Morbid obesity with BMI of 40.0-44.9, adult: PLAN: Plan This is 73-year-old female was admitted from ED for generalized weakness, felt weak, slid down on the floor. Could not get up again. Heart rate was found in 50s. Chronically on home oxygen 4 to 5 L/min 22/06. 1. KARLA in the setting of CKD; stage III B with increase serum creatinine of 2.92 mg/dL present on admission (up from her baseline of 2.21 mg/dL last admission) - Admit to PCU. Give NS IVF. Monitor BMP. Probably due to torsemide. Torsemide on hold 08/30: Creatinine improving. Patient got IV fluid on admission. Discontinue IV fluid. 2. Generalized Weakness with Ambulatory Dysfunction - PT/OT and Case Management to consult and treat on-rounds in the AM for further recommendations with help appreciated in advance. 3. Morbid obesity; with BMI of 45.6 this admission plus CONCEPCION; noncompliant with CPAP - Weight loss will be recommended. TSH 4.03, iron normal range. Free T4 ordered for tomorrow improved encourage CPAP use. 4. Severe junctional rhythm with PAF, chronic RBBB with with severe bradycardia: Patient found bradycardia, heart rate in 50s but sometimes dips down into 30s. Twelve-lead EKG done which shows junctional bradycardia, 49 bpm, nonspecific IVCD, possible RVH. QTc 446 ms. Heart rate has recovered currently in the 70s. Glucagon 1 mg IV was ordered but her heart rate recovered therefore did not require. Not on anticoagulation 08/30: Heart rate has recovered. Carvedilol 6.25 mg twice daily resumed. 5. Chronic asthma/COPD; with chronic hypoxic respiratory failure on 4 L nasal cannula. On ambulation. 10/ respiratory status is better 6. Essential hypertension - Maintain home regimen but avoid potentially nephrotoxic agents. 7. Hyperlipidemia - Hold Fenofibrate with creatinine clearance < 30 mg/dL. 8. DM-2; oADA diet. FSBS q. AC/HS plus SSI. 9. Multiple chronic comorbidities which include sarcoidosis, secondary pulmonary hypertension, chronic bilateral lower extremity insufficiency, GERD, osteoporosis, gout, overactive bladder and degenerative arthritis: Patient has history of L1 compression fracture with subsequent laminectomy. PT and OT ordered. DVT prophylaxis - Heparin 5,000 units sq BID. 08/30: Drop in hemoglobin, from 10.3 to 8.7 g/dL therefore heparin subcu discontinued Charges/Coding Visit Charges Inpatient E&M: 55439 Subs Hosp L2
[2024-08-30] MEDS: Azelastine HCl NASAL.SRY 2 SPRAY NASAL ×2 (08:47→21:15)
[2024-08-30] MEDS: dilTIAZem CD 180 MG Capsule PO (08:47)
[2024-08-30] MEDS: Cyanocobalamin 500 MCG Tablet 1000 MCG PO (08:48)
[2024-08-30] MEDS: Omega-3 Acid Ethyl Esters 1 GM Capsule PO (08:48)
[2024-08-30] MEDS: Aspirin E.C. 81 MG Tablet PO (08:48)
[2024-08-30] MEDS: Doxycycline 100 MG CAPSULE PO ×2 (08:49→21:15)
[2024-08-30] MEDS: Febuxostat 40 MG TABLET PO (08:49)
[2024-08-30] MEDS: Lactobacillis Acidophilus 1 CAP PO (08:49)
[2024-08-30] MEDS: Pantoprazole Sodium 40 MG Tablet PO (08:50)
[2024-08-30] MEDS: Senna/Docusate Sodium 1 Tablet PO ×2 (08:50→21:14)
[2024-08-30] MEDS: Vibegron 75 MG TABLET PO (08:50)
[2024-08-30] MEDS: Insulin Lispro 100 UNIT/ML INSULN.PEN 12 UNIT SC ×2 (08:53→13:39)
[2024-08-30 09:14] LABS: Bedside Glucose 101 mg/dL (74-106)
--- NOTE | 2024-08-30 10:06 | CPS ---
patient found with oxygen off in lap. Patients spo2 was 77% upon checking. Oxygen placed back on patient at 5L and SPO2 reading at 93%. Patient seems comfortable.
[2024-08-30] MEDS: Lidocaine 5% Patch 2 PATCH TOPICAL (11:38)
[2024-08-30] MEDS: guaiFENesin/D-Methorphan TAB.SR.12H 2 TABLET PO ×2 (11:38→21:15)
[2024-08-30 11:54] LABS: Bedside Glucose 119 mg/dL (74-106)
--- NOTE | 2024-08-30 15:36 | CASEMGMT ---
Therapy notified SARA BARON of recommendation for placement. SARA BARON into pt room to discuss DC plan. Pt sitting up in chair in no distress. SARA BARON discussed options of HHC vs SNF, pt states [facility] will not [facility]. [facility] asked if pt would be agreeable to another SNF facility if able to accept, pt states would like to go to TCU if she goes anywhere. Pt states I would like to go home if I can, but I'm worried I'm too much for my right now. SARA BARON discussed with pt how it went with therapy today. Pt states will discuss SNF vs HHC with ankit and inform SARA BARON tomorrow morning of her preference.
[2024-08-30] MEDS: Insulin Lispro 100 UNIT/ML INSULN.PEN 20 UNIT SC (17:47)
[2024-08-30] MEDS: Insulin Glargine-YFGN 100 UNIT/ML Pen 26 UNIT SC (21:13)
[2024-08-30] MEDS: Montelukast 10 MG Tablet PO (21:15)
[2024-08-30] MEDS: Carvedilol 6.25 MG Tablet PO (21:16)
[2024-08-30] MEDS: Polyethylene Glycol 3350 17 GM PACKET PO (21:17)
[2024-08-31 03:14] VITALS: BP 156/51; PULSE 69; RESP 16; TEMP 36.4; O2SAT 97
[2024-08-31 05:47] VITALS: BMI 46.0
[2024-08-31 06:13] LABS: Absolute Lymphocyte Count 0.66 X10^3/uL (0.83-4.51); Absolute Neutrophil Count 4.7 X10^3/uL (2.0-7.7); Basophil# 0.03 X10^3/uL; Basophil% 0.5 % (0-1); Eosinophil# 0.17 X10^3/uL; Eosinophils% 2.7 % (0-5); Hematocrit 31.3 % (37-47); Hemoglobin 9.4 g/dL (12.0-15.0); Lymphocyte # 0.66 X10^3/ul (0.83-4.51); Lymphocyte % 10.4 % (19-41); Mean Corpuscular Hgb 29.5 pg (27.0-32.0); Mean Corpuscular Volume 98.1 fL (81-99); Mean Platelet Vol. 9.6 fl (6.2-12.0); Monocyte# 0.73 X10^3/uL; Monocyte% 11.5 % (0-10); NRBC Flagged by Analyzer 0 % (0-5); Neutrophil % 74.3 % (47-70); Platelet Count 193 K/mm3 (150-450); RBC Distribution Width CV 15.6 % (11.6-14.6); RBC Distribution Width SD 56.3 fl (35.1-43.9); Red Blood Count 3.19 M/mm3 (4.2-5.4); White Blood Count 6.3 K/mm3 (4.4-11.0)
[2024-08-31 06:36] LABS: Anion Gap 3 (5-15); BUN 44 mg/dL (7-18); BUN/Creat Ratio 24.7 RATIO (10-20); Calcium,Total 10.5 mg/dL (8.5-10.1); Chloride 109 mmol/L (98-107); Creatinine, Serum 1.78 mg/dL (0.55-1.02); EST Glomerular Filtration Rate 30 mL/min (>60); Est Glom Filt Rate - Afr Amer 36 mL/min (>60); Estimated Creatinine Clearance 30.51 ml/min; Glucose 107 mg/dL (74-106); Potassium 4.4 mmol/L (3.5-5.1); Sodium Level 144 mmol/L (136-145)
[2024-08-31 07:05] VITALS: PULSE 72; RESP 16; O2SAT 94
[2024-08-31] MEDS: Budesonide Respules 0.5 MG/2 ML AMPUL.NEB. INHALATION (07:05)
[2024-08-31] MEDS: Ipratropium/Albuterol Sulfate 3 ML AMPUL.NEB INHALATION ×2 (07:05→13:18)
[2024-08-31] MEDS: Insulin Lispro 100 UNIT/ML INSULN.PEN 12 UNIT SC ×2 (08:10→11:48)
[2024-08-31 08:30] LABS: Bedside Glucose 124 mg/dL (74-106)
--- NOTE | 2024-08-31 08:35 | DCINST_ITS ---
Discharge Instructions Diet Discharge Diet: Low fat / Low cholesterol, 6 Cup Fluid Restriction, 8 Cup Fluid Restriction and 2000 mg Sodium Diet Activity Discharge Activity: Return to Normal Activity Weight Bearing Status: Weight bearing as tolerated Dressing / Incision Call your doctor if you observe: Fever of 101 or Higher, Coldness, Increased Pain, Numbness or Tingling, Change in Color, Inability to urinate, Inability to have a bowel movement, Shortness of breath, Dizziness, Fainting spells, Swelling in the ankles, Chest pain, Prolonged hiccupping, Increased palpitations (irregular heartbeat) and Calf discomfort Follow Up Care When: IN 2 WEEKS Test Results: Test results from this visit will be discussed in further detail at your follow- up appointment, if applicable. Discharge Plan Admission Admit Date/Time: 08/29/24 04:41 Primary Reason for Your Visit: KARLA on CKD, generalized weakness, leg swelling Attending Provider: David Murphy Primary Care Provider: Veronica Oquendo Consulting Providers: Vivek Logan Discharge Orders/Prescriptions Prescriptions: New sennosides-docusate sodium [Stimulant Laxative Plus] 8.6-50 mg Tablet 1 tab PO BID PRN (Reason: constipation) Qty: 0 0RF Rx Instructions: [id number] Continued fluticasone propion-salmeterol [Advair Diskus] 500-50 mcg/dose blister with device 1 inh INHALATION BID aspirin 81 mg tablet,delayed release (DR/EC) 81 mg PO DAILY Qty: 1 0RF levalbuterol HCl 0.63 mg/3 mL solution for nebulization 0.63 mg inhalation Q6H PRN (Reason: WHEEZING ) insulin glargine 100 unit/mL (3 mL) insulin pen 38 unit SC QPM budesonide 0.5 mg/2 mL suspension for nebulization 0.5 mg inhalation QODAY PRN (Reason: BREATHING) fenofibrate nanocrystallized [Tricor] 145 mg tablet 145 mg PO DAILY tramadol 50 mg tablet 50 mg PO .COMPLEX PRN (Reason: pain) Rx Instructions: 50 mg orally 2-3X daily PRN; Acidophilus Capsule 10 mg PO DAILY Linzess 145 mcg capsule 145 mcg PO DAILY T[place] Extract 1,000 mg capsule 1,200 mg PO DAILY azelastine 137 mcg (0.1 %) spray,non-aerosol 2 spray intranasal BID Patient Comments: [NO ORIGINAL SIG] ondansetron 4 mg tablet,disintegrating 4 mg PO DAILY PRN omega-3 fatty acids 1,000 mg capsule 1,000 mg PO DAILY diclofenac sodium [Arthritis Pain (diclofenac)] 1 % gel 2 g topical TID PRN (Reason: pain) Rx Instructions: apply to single elbow, wrist or hand; for hand includes palm/fingers/back of hand fluticasone propionate 1 SPRAY spray,suspension 2 spray NASAL DAILY PRN PRN (Reason: NASAL CONGESTION ) febuxostat [Uloric] 40 MG tablet 40 mg PO DAILY pantoprazole 40 mg tablet,delayed release (DR/EC) 40 mg PO DAILY loratadine [Claritin] 10 mg Tablet 10 mg PO DAILY mirabegron [Myrbetriq] 50 mg Tablet Extended Release 24 Hr 50 mg PO DAILY Spiriva Respimat 1.25 mcg/actuation Mist 2 puff INHALATION DAILY montelukast [Singulair] 10 mg tablet 10 mg PO QPM insulin aspart U-100 [Novolog FlexPen U-100 Insulin] 100 unit/mL (3 mL) insulin pen See Rx Instructions subcut .COMPLEX Rx Instructions: 12-14 units subcutaneously before breakfast and lunch; cyanocobalamin (vitamin B-12) 1,000 mcg tablet 1,000 mcg PO DAILY lidocaine 5 % adhesive patch,medicated 2 patch topical DAILY PRN (Reason: pain) insulin aspart U-100 [Novolog FlexPen U-100 Insulin] 100 unit/mL (3 mL) insulin pen 20 unit subcut .COMPLEX Rx Instructions: 20 units subcutaneously before dinner; acetaminophen [8 Hour Pain Reliever] 650 mg tablet extended release 1,300 mg PO Q12H PRN (Reason: pain) polyethylene glycol 3350 [ClearLax] 17 gram/dose powder 17 g PO QHS ipratropium-albuterol 0.5 mg-3 mg(2.5 mg base)/3 mL solution for nebulization 3 ml inhalation Q4H PRN PRN (Reason: shortness of breath) carvedilol 6.25 mg tablet 6.25 mg PO BID (DME) pen needle, diabetic [BD Ultra-Fine Sonam Pen Needle] 32 gauge x 5/32 needle See Rx Instructions .ROUTE .MEDSUPPLY Qty: 400 3RF Rx Instructions: 4times daily (DME) FreeStyle Garett 2 Sensor Kit See Rx Instructions .ROUTE .MEDSUPPLY Qty: 6 3RF Rx Instructions: 1 sensor q 14 days diltiazem HCl [Tiazac] 180 mg capsule,extended release 24 hr 180 mg PO DAILY Qty: 90 3RF Held torsemide 20 mg tablet 20 mg PO DAILY Hold Instructions: Start from 09/01/2020 Take extra 20 mg dose at 5 PM for increased leg swelling or weight gain 5 pounds in 1 week. Rx Instructions: Take 2 tabs for two days then TAKE 1 TABLET BY MOUTH DAILY unless weight has increased by 2 (TWO) pounds or more, then take second tablet Discontinued doxycycline monohydrate 100 mg capsule 100 mg PO BID Referrals / Follow Up: Christel Chaidez MD [Med Staff - Consulting] - Within 2 Weeks (KARLA on CKD. Heart failure on diuretic/torsemide) Veronica Oquendo DO [Primary Care Provider] - Disposition Disposition (needs filled in before D/C Order can be placed): Home Health Service
--- NOTE | 2024-08-31 08:41 | CASEMGMT ---
This SW and DEEJAY Kirk spoke with patient about d/c plan. Introduced selves and role at [facility]. Patient stated she wants to go home. Patient would like home health. Patient said she spoke to her last night and he is okay with her coming home. SW let patient know that SW will notify SARA BARON regarding home health. Ama Bella MSW CECILIA
--- NOTE | 2024-08-31 09:09 | CASEMGMT ---
SW notified SARA BARON pt preference is to go home with HHC. SARA BARON into pt room, pt sitting up in bed. Pt denies wanting list of local HHC agencies, states previously had [facility] and chose them as first choice. SARA ABRON called and left voicemail with [facility] for referral.
[2024-08-31 09:15] VITALS: BP 161/69; PULSE 75; RESP 18; TEMP 36.6; O2SAT 98
[2024-08-31] MEDS: guaiFENesin/D-Methorphan TAB.SR.12H 2 TABLET PO (10:08)
[2024-08-31] MEDS: Omega-3 Acid Ethyl Esters 1 GM Capsule PO (10:08)
[2024-08-31] MEDS: Azelastine HCl NASAL.SRY 2 SPRAY NASAL (10:09)
[2024-08-31] MEDS: Loratadine 10 MG Tablet PO (10:10)
[2024-08-31] MEDS: Aspirin E.C. 81 MG Tablet PO (10:10)
[2024-08-31] MEDS: Vibegron 75 MG TABLET PO (10:10)
[2024-08-31] MEDS: dilTIAZem CD 180 MG Capsule PO (10:10)
[2024-08-31] MEDS: Carvedilol 6.25 MG Tablet PO (10:10)
[2024-08-31] MEDS: Cyanocobalamin 500 MCG Tablet 1000 MCG PO (10:11)
[2024-08-31] MEDS: Lactobacillis Acidophilus 1 CAP PO (10:12)
[2024-08-31] MEDS: Pantoprazole Sodium 40 MG Tablet PO (10:12)
[2024-08-31] MEDS: Doxycycline 100 MG CAPSULE PO (10:12)
[2024-08-31] MEDS: Febuxostat 40 MG TABLET PO (10:12)
--- NOTE | 2024-08-31 10:43 | CASEMGMT ---
SARA BARON received call back from [facility], willing to accept pt. SOC to be 09/01 or 09/02/24. [facility] to call pt with SOC date and time. SARA BARON notified pt. Pt states will bring in portable O2 tank to go home with. Pt denies any questions or concerns at this time.
--- NOTE | 2024-08-31 11:57 | PCM.DC.SUM ---
Providers Date of Admission: 08/29/24 Date of Discharge: 08/31/24 Primary Care Physician: Dr. Veronica Oquendo DO Reason For Visit: KARLA IN THE SETTING OF CKD STAGE III & GENERALIZED Diagnosis Discharge Diagnosis (1) KARLA (acute kidney injury): Status: Acute Code(s): N17.9 - Acute kidney failure, unspecified (2) CKD (chronic kidney disease) stage 3, GFR 30-59 ml/min: Status: Chronic Code(s): N18.30 - Chronic kidney disease, stage 3 unspecified Qualifiers: Chronic kidney disease stage 3 subtype: stage 3b (GFR 30-44) Qualified Code(s): N18.32 - Chronic kidney disease, stage 3b (3) Generalized weakness: Status: Acute Code(s): R53.1 - Weakness (4) Ambulatory dysfunction: Status: Acute Code(s): R26.2 - Difficulty in walking, not elsewhere classified (5) Morbid obesity with BMI of 40.0-44.9, adult: Status: Acute Code(s): E66.01 - Morbid (severe) obesity due to excess calories; Z68.41 - Body mass index [BMI] 40.0-44.9, adult Plan This is 73-year-old female was admitted from ED for generalized weakness, felt weak, slid down on the floor. Could not get up again. Heart rate was found in 50s. Chronically on home oxygen 4 to 5 L/min 22/06. 1. KARLA in the setting of CKD; stage III B with increase serum creatinine of 2.92 mg/dL present on admission (up from her baseline of 2.21 mg/dL last admission) - Admit to PCU. Give NS IVF. Monitor BMP. Probably due to torsemide. Torsemide on hold 08/30: Creatinine improving. Patient got IV fluid on admission. Discontinue IV fluid. 2. Generalized Weakness with Ambulatory Dysfunction - PT/OT and Case Management to consult and treat on-rounds in the AM for further recommendations with help appreciated in advance. 3. Morbid obesity; with BMI of 45.6 this admission plus CONCEPCION; noncompliant with CPAP - Weight loss will be recommended. TSH 4.03, iron normal range. Free T4 ordered for tomorrow improved encourage CPAP use. 4. Severe junctional rhythm with PAF, chronic RBBB with with severe bradycardia: Patient found bradycardia, heart rate in 50s but sometimes dips down into 30s. Twelve-lead EKG done which shows junctional bradycardia, 49 bpm, nonspecific IVCD, possible RVH. QTc 446 ms. Heart rate has recovered currently in the 70s. Glucagon 1 mg IV was ordered but her heart rate recovered therefore did not require. Not on anticoagulation 08/30: Heart rate has recovered. Carvedilol 6.25 mg twice daily resumed. 5. Chronic asthma/COPD; with chronic hypoxic respiratory failure on 4 L nasal cannula. On ambulation. 10/ respiratory status is better 6. Essential hypertension - Maintain home regimen but avoid potentially nephrotoxic agents. 7. Hyperlipidemia - Hold Fenofibrate with creatinine clearance < 30 mg/dL. 8. DM-2; oADA diet. FSBS q. AC/HS plus SSI. 9. Multiple chronic comorbidities which include sarcoidosis, secondary pulmonary hypertension, chronic bilateral lower extremity insufficiency, GERD, osteoporosis, gout, overactive bladder and degenerative arthritis: Patient has history of L1 compression fracture with subsequent laminectomy. PT and OT ordered. DVT prophylaxis - Heparin 5,000 units sq BID. 08/30: Drop in hemoglobin, from 10.3 to 8.7 g/dL therefore heparin subcu discontinued Medications at Discharge Home Medications fluticasone propionate 50 mcg/actuation nasal spray,suspension 2 spray NASAL DAILY PRN PRN NASAL CONGESTION 06/21/17 febuxostat 40 mg tablet (Uloric) 40 mg PO DAILY GOUT 12/30/18 fluticasone 500 mcg-salmeterol 50 mcg/dose blistr powdr for inhalation (Advair Diskus) 1 inh inhalation BID SHORTNESS OF BREATH 07/17/20 aspirin 81 mg tablet,delayed release 81 mg PO DAILY HEART HEALTH #1 TAB 02/08/21 loratadine 10 mg tablet (Claritin) 10 mg PO DAILY ALLERGY 01/14/22 mirabegron 50 mg tablet,extended release 24 hr (Myrbetriq) 50 mg PO DAILY OVERACTIVE BLADDER 01/14/22 tiotropium bromide 1.25 mcg/actuation mist for inhalation (Spiriva Respimat) 2 puff inhalation DAILY sob 01/14/22 insulin glargine 100 unit/mL (3 mL) subcutaneous pen 38 unit subcut QPM DIABETES 12/11/22 levalbuterol HCl 0.63 mg/3 mL solution for nebulization 0.63 mg inhalation Q6H PRN WHEEZING 12/11/22 pen needle, diabetic 32 gauge x 5/32 (BD Ultra-Fine Sonam Pen Needle) #400 ea 01/22/23 tramadol 50 mg tablet 50 mg PO .COMPLEX PRN pain 03/03/23 pantoprazole 40 mg tablet,delayed release 40 mg PO DAILY GERD 05/07/23 Lactobacillus acidophilus (Acidophilus capsule) 10 mg PO DAILY probiotic 06/16/23 budesonide 0.5 mg/2 mL suspension for nebulization 0.5 mg inhalation QODAY PRN BREATHING 06/16/23 linaclotide 145 mcg capsule (Linzess) 145 mcg PO DAILY IRRITABLE BOWELS 06/16/23 sour scott extract 1,000 mg capsule (Tart Scott Extract) 1,200 mg PO DAILY supplement 06/16/23 flash glucose sensor (3dplusmeStyle Garett 2 Sensor kit) #6 ea 01/18/24 diltiazem HCl 180 mg capsule,24 hr,extended release (Tiazac) 180 mg PO DAILY BLOOD PRESSURE #90 caps 03/21/24 insulin aspart U-100 100 unit/mL (3 mL) subcutaneous pen (Novolog FlexPen U-100 Insulin aspart) See Rx Instructions subcut .COMPLEX insulin 05/03/24 acetaminophen 650 mg tablet,extended release (8 Hour Pain Reliever) 1,300 mg PO Q12H PRN pain 05/21/24 cyanocobalamin (vitamin B-12) 1,000 mcg tablet 1,000 mcg PO DAILY 05/21/24 insulin aspart U-100 100 unit/mL (3 mL) subcutaneous pen (Novolog FlexPen U-100 Insulin aspart) 20 unit subcut .COMPLEX 05/21/24 ipratropium 0.5 mg-albuterol 3 mg (2.5 mg base)/3 mL nebulization soln 3 ml inhalation Q4H PRN PRN shortness of breath 05/21/24 lidocaine 5 % topical patch 2 patch topical DAILY PRN pain 05/21/24 polyethylene glycol 3350 17 gram/dose oral powder (ClearLax) 17 g PO QHS constipation 05/21/24 azelastine 137 mcg (0.1 %) nasal spray 2 spray intranasal BID nasal 06/21/24 fenofibrate nanocrystallized 145 mg tablet (Tricor) 145 mg PO DAILY CHOLESTEROL 07/01/24 montelukast 10 mg tablet (Singulair) 10 mg PO QPM ASTHMA 07/01/24 omega-3 fatty acids 1,000 mg capsule 1,000 mg PO DAILY 07/01/24 ondansetron 4 mg disintegrating tablet 4 mg PO DAILY PRN 07/01/24 torsemide 20 mg tablet 20 mg PO DAILY water pill 07/01/24 diclofenac sodium 1 % topical gel (Arthritis Pain (diclofenac)) 2 g topical TID PRN pain 08/11/24 carvedilol 6.25 mg tablet 6.25 mg PO BID heart 08/29/24 sennosides 8.6 mg-docusate sodium 50 mg tablet (Stimulant Laxative Plus) 1 tab PO BID PRN constipation #0 tabs 08/31/24 Weight / BMI Weight Weight: 227 lb 15.327 oz Body Mass Index (BMI) 46.0 ABG / Lab / Microbiology Data 08/31/24 05:24 08/31/24 05:24 Laboratory: Laboratory Results - last 24 hr 08/31/24 05:24: WBC 6.3, RBC 3.19 L, Hgb 9.4 L, Hct 31.3 L, MCV 98.1, MCH 29.5, MCHC 30.0 L, RDW Std Deviation 56.3 H, RDW Coeff of Jazzmine 15.6 H, Plt Count 193, MPV 9.6, Immature Gran % (Auto) 0.600, Neut % (Auto) 74.3 H, Lymph % (Auto) 10.4 L, Antelope % (Auto) 11.5 H, Eos % (Auto) 2.7, Baso % (Auto) 0.5, Absolute Neuts (auto) 4.7, Absolute Lymphs (auto) 0.66 L, Nucleated RBC % 0, Sodium 144, Potassium 4.4, Chloride 109 H, Carbon Dioxide 32.0, Anion Gap 3 L, BUN 44 H, Creatinine 1.78 H, Estim Creat Clear Calc 30.51, Est GFR (MDRD) Af Amer 36 L, Est GFR (MDRD) Non-Af 30 L, BUN/Creatinine Ratio 24.7 H, Glucose 107 H, Calcium 10.5 H 08/31/24 08:08: POC Glucose 124 H Microbiology: Microbiology 08/29/24 02:12 Mucosa - Nose SARS-CoV-2, Influenza & RSV (PCR) - Final D/C Instructions Discharge Diet: Low fat / Low cholesterol, 6 Cup Fluid Restriction, 8 Cup Fluid Restriction and 2000 mg Sodium Diet Weight Bearing Status: Weight bearing as tolerated Call your doctor if you observe: Fever of 101 or Higher, Coldness, Increased Pain, Numbness or Tingling, Change in Color, Inability to urinate, Inability to have a bowel movement, Shortness of breath, Dizziness, Fainting spells, Swelling in the ankles, Chest pain, Prolonged hiccupping, Increased palpitations (irregular heartbeat) and Calf discomfort When: IN 2 WEEKS Meaningful Use Info Meaningful Use Meaningful Use Diagnoses (Choose all that apply): None applicable Ischemic Stroke Statin Dosing Therapy Reference: STATIN DOSE THERAPY REFERENCE: * Patients > 75 years receive moderate or high dose statin therapy. * Patients 75 years or YOUNGER should receive HIGH intensity statin dose unless contraindicated. You will be required to document reason for non-treatment if statin daily dose does not meet guidelines. HIGH DOSE STATIN THERAPY DAILY Atorvastatin > than or = to 40 mg Rosuvastatin > than or = to 20 mg Amlodipine + Atorvastatin > than or = to 2.5/40 mg Ezetimibe + Simvastatin 10/80 mg Simvastatin 80mg Discharge Plan Admission Admit Date/Time: 08/29/24 04:41 Primary Reason for Your Visit: KARLA on CKD, generalized weakness, leg swelling Attending Provider: David Murphy Primary Care Provider: Veronica Oquendo Consulting Providers: Vivek Logan Discharge Orders/Prescriptions Prescriptions: New sennosides-docusate sodium [Stimulant Laxative Plus] 8.6-50 mg Tablet 1 tab PO BID PRN (Reason: constipation) Qty: 0 0RF Rx Instructions: [id number] Continued fluticasone propion-salmeterol [Advair Diskus] 500-50 mcg/dose blister with device 1 inh INHALATION BID aspirin 81 mg tablet,delayed release (DR/EC) 81 mg PO DAILY Qty: 1 0RF levalbuterol HCl 0.63 mg/3 mL solution for nebulization 0.63 mg inhalation Q6H PRN (Reason: WHEEZING ) insulin glargine 100 unit/mL (3 mL) insulin pen 38 unit SC QPM budesonide 0.5 mg/2 mL suspension for nebulization 0.5 mg inhalation QODAY PRN (Reason: BREATHING) fenofibrate nanocrystallized [Tricor] 145 mg tablet 145 mg PO DAILY tramadol 50 mg tablet 50 mg PO .COMPLEX PRN (Reason: pain) Rx Instructions: 50 mg orally 2-3X daily PRN; Acidophilus Capsule 10 mg PO DAILY Linzess 145 mcg capsule 145 mcg PO DAILY Tart Scott Extract 1,000 mg capsule 1,200 mg PO DAILY azelastine 137 mcg (0.1 %) spray,non-aerosol 2 spray intranasal BID Patient Comments: [NO ORIGINAL SIG] ondansetron 4 mg tablet,disintegrating 4 mg PO DAILY PRN omega-3 fatty acids 1,000 mg capsule 1,000 mg PO DAILY diclofenac sodium [Arthritis Pain (diclofenac)] 1 % gel 2 g topical TID PRN (Reason: pain) Rx Instructions: apply to single elbow, wrist or hand; for hand includes palm/fingers/back of hand fluticasone propionate 1 SPRAY spray,suspension 2 spray NASAL DAILY PRN PRN (Reason: NASAL CONGESTION ) febuxostat [Uloric] 40 MG tablet 40 mg PO DAILY pantoprazole 40 mg tablet,delayed release (DR/EC) 40 mg PO DAILY loratadine [Claritin] 10 mg Tablet 10 mg PO DAILY mirabegron [Myrbetriq] 50 mg Tablet Extended Release 24 Hr 50 mg PO DAILY Spiriva Respimat 1.25 mcg/actuation Mist 2 puff INHALATION DAILY montelukast [Singulair] 10 mg tablet 10 mg PO QPM insulin aspart U-100 [Novolog FlexPen U-100 Insulin] 100 unit/mL (3 mL) insulin pen See Rx Instructions subcut .COMPLEX Rx Instructions: 12-14 units subcutaneously before breakfast and lunch; cyanocobalamin (vitamin B-12) 1,000 mcg tablet 1,000 mcg PO DAILY lidocaine 5 % adhesive patch,medicated 2 patch topical DAILY PRN (Reason: pain) insulin aspart U-100 [Novolog FlexPen U-100 Insulin] 100 unit/mL (3 mL) insulin pen 20 unit subcut .COMPLEX Rx Instructions: 20 units subcutaneously before dinner; acetaminophen [8 Hour Pain Reliever] 650 mg tablet extended release 1,300 mg PO Q12H PRN (Reason: pain) polyethylene glycol 3350 [ClearLax] 17 gram/dose powder 17 g PO QHS ipratropium-albuterol 0.5 mg-3 mg(2.5 mg base)/3 mL solution for nebulization 3 ml inhalation Q4H PRN PRN (Reason: shortness of breath) carvedilol 6.25 mg tablet 6.25 mg PO BID (DME) pen needle, diabetic [BD Ultra-Fine Sonam Pen Needle] 32 gauge x 5/32 needle See Rx Instructions .ROUTE .MEDSUPPLY Qty: 400 3RF Rx Instructions: 4times daily (DME) FreeStyle Garett 2 Sensor Kit See Rx Instructions .ROUTE .MEDSUPPLY Qty: 6 3RF Rx Instructions: 1 sensor q 14 days diltiazem HCl [Tiazac] 180 mg capsule,extended release 24 hr 180 mg PO DAILY Qty: 90 3RF Held torsemide 20 mg tablet 20 mg PO DAILY Hold Instructions: Start from 09/01/2020 Take extra 20 mg dose at 5 PM for increased leg swelling or weight gain 5 pounds in 1 week. Rx Instructions: Take 2 tabs for two days then TAKE 1 TABLET BY MOUTH DAILY unless weight has increased by 2 (TWO) pounds or more, then take second tablet Discontinued doxycycline monohydrate 100 mg capsule 100 mg PO BID Referrals / Follow Up: Christel Chaidez MD [Med Staff - Consulting] - Within 2 Weeks (KARLA on CKD. Heart failure on diuretic/torsemide) Veronica Oquendo DO [Primary Care Provider] - Gabbi Cuba PA [Med Staff - Adv Practice Prof] - Within 2 Weeks (For bradycardia. P A-fib, heart failure ) Disposition Disposition (needs filled in before D/C Order can be placed): Home Health Service
[2024-08-31 12:00] VITALS: BP 144/74; PULSE 75; RESP 18; TEMP 36.6; O2SAT 98
--- NOTE | 2024-08-31 12:00 | DS.PCM_ITS ---
Providers Date of Admission: 08/29/24 Date of Discharge: 08/31/24 Primary Care Physician: Dr. Veronica Oquendo DO Reason For Visit: KARLA IN THE SETTING OF CKD STAGE III & GENERALIZED Diagnosis Discharge Diagnosis (1) KARLA (acute kidney injury): Status: Acute Code(s): N17.9 - Acute kidney failure, unspecified (2) CKD (chronic kidney disease) stage 3, GFR 30-59 ml/min: Status: Chronic Code(s): N18.30 - Chronic kidney disease, stage 3 unspecified Qualifiers: Chronic kidney disease stage 3 subtype: stage 3b (GFR 30-44) Qualified Code(s): N18.32 - Chronic kidney disease, stage 3b (3) Generalized weakness: Status: Acute Code(s): R53.1 - Weakness (4) Ambulatory dysfunction: Status: Acute Code(s): R26.2 - Difficulty in walking, not elsewhere classified (5) Morbid obesity with BMI of 40.0-44.9, adult: Status: Acute Code(s): E66.01 - Morbid (severe) obesity due to excess calories; Z68.41 - Body mass index [BMI] 40.0-44.9, adult Plan This is 73-year-old female was admitted from ED for generalized weakness, felt weak, slid down on the floor. Could not get up again. Heart rate was found in 50s. Chronically on home oxygen 4 to 5 L/min 22/06. 1. KARLA in the setting of CKD; stage III B with increase serum creatinine of 2.92 mg/dL present on admission (up from her baseline of 2.21 mg/dL last admission) - Admit to PCU. Give NS IVF. Monitor BMP. Probably due to torsemide. Torsemide on hold 08/30: Creatinine improving. Patient got IV fluid on admission. Discontinue IV fluid. 08/31: Creatinine 1.78, at baseline what she had in May 2024. Can resume torsemide 20 mg daily from tomorrow. Follow-up with a [employer]er [employer] as an outpatient in 2 weeks. 2. Generalized Weakness with Ambulatory Dysfunction - PT/OT and Case Management to consult and treat on-rounds in the AM for further recommendations with help appreciated in advance. 08/31: Patient declined for SNF. Being discharged with home with home health PT. 3. Morbid obesity; with BMI of 45.6 this admission plus CONCEPCION; noncompliant with CPAP - Weight loss will be recommended. TSH 4.03, iron normal range. Free T4 ordered for tomorrow improved encourage CPAP use. 4. Severe junctional rhythm with PAF, chronic RBBB with with severe bradycardia. Chronic HFpEF: Patient found bradycardia, heart rate in 50s but sometimes dips down into 30s. Twelve-lead EKG done which shows junctional bradycardia, 49 bpm, nonspecific IVCD, possible RVH. QTc 446 ms. Heart rate has recovered currently in the 70s. Glucagon 1 mg IV was ordered but her heart rate recovered therefore did not require. Not on anticoagulation 08/30: Heart rate has recovered. Carvedilol 6.25 mg twice daily resumed. 08/31: Continue carvedilol. Patient on Cardizem CD. Echo in November 21 shows EF 55%, stage I diastolic dysfunction. Mild concentric LVH 5. Chronic asthma/COPD; with chronic hypoxic respiratory failure on 4 L nasal cannula. On ambulation. 09/10: Respiratory status is better. I do not think patient had pneumonic consolidation or pneumonia. Pneumonia ruled out. Doxycycline discontinued. 6. Essential hypertension - Maintain home regimen but avoid potentially nephrotoxic agents. 7. Hyperlipidemia - Hold Fenofibrate with creatinine clearance < 30 mg/dL. 8. DM-2; oADA diet. FSBS q. AC/HS plus SSI. 9. Anemia of chronic disease: Patient had drop in hemoglobin from 10.3-8.7 and then 9.4. Does not meet criteria for acute anemia. Follow with PCP. Multiple chronic comorbidities which include sarcoidosis, secondary pulmonary hypertension, chronic bilateral lower extremity insufficiency, GERD, osteoporosis, gout, overactive bladder and degenerative arthritis: Patient has history of L1 compression fracture with subsequent laminectomy. PT and OT ordered. DVT prophylaxis - Heparin 5,000 units sq BID. 08/30: Drop in hemoglobin, from 10.3 to 8.7 g/dL therefore heparin subcu discontinued Discharge medication reconciliation done. Discharge follow-up instructions completed. Discharge process discussed with the patient and all questions were answered to patient's satisfaction. Follow with PCP in 1 to 2 weeks Total time spent, exact 35 minutes on discharge meds reconciliation, examination, coordination of care with nurses and ancillary staff, review of imaging and blood test and discussion with the patient on follow-up instructions. Medications at Discharge Home Medications fluticasone propionate 50 mcg/actuation nasal spray,suspension 2 spray NASAL DAILY PRN PRN NASAL CONGESTION 06/21/17 febuxostat 40 mg tablet (Uloric) 40 mg PO DAILY GOUT 12/30/18 fluticasone 500 mcg-salmeterol 50 mcg/dose blistr powdr for inhalation (Advair Diskus) 1 inh inhalation BID SHORTNESS OF BREATH 07/17/20 aspirin 81 mg tablet,delayed release 81 mg PO DAILY HEART HEALTH #1 TAB 02/08/21 loratadine 10 mg tablet (Claritin) 10 mg PO DAILY ALLERGY 01/14/22 mirabegron 50 mg tablet,extended release 24 hr (Myrbetriq) 50 mg PO DAILY OVERACTIVE BLADDER 01/14/22 tiotropium bromide 1.25 mcg/actuation mist for inhalation (Spiriva Respimat) 2 puff inhalation DAILY sob 01/14/22 insulin glargine 100 unit/mL (3 mL) subcutaneous pen 38 unit subcut QPM DIABETES 12/11/22 levalbuterol HCl 0.63 mg/3 mL solution for nebulization 0.63 mg inhalation Q6H PRN WHEEZING 12/11/22 pen needle, diabetic 32 gauge x 5/32 (BD Ultra-Fine Sonam Pen Needle) #400 ea 01/22/23 tramadol 50 mg tablet 50 mg PO .COMPLEX PRN pain 03/03/23 pantoprazole 40 mg tablet,delayed release 40 mg PO DAILY GERD 05/07/23 Lactobacillus acidophilus (Acidophilus capsule) 10 mg PO DAILY probiotic 06/16/23 budesonide 0.5 mg/2 mL suspension for nebulization 0.5 mg inhalation QODAY PRN BREATHING 06/16/23 linaclotide 145 mcg capsule (Linzess) 145 mcg PO DAILY IRRITABLE BOWELS 06/16/23 sour scott extract 1,000 mg capsule (Tart Scott Extract) 1,200 mg PO DAILY supplement 06/16/23 flash glucose sensor (FreeStyle Garett 2 Sensor kit) #6 ea 01/18/24 diltiazem HCl 180 mg capsule,24 hr,extended release (Tiazac) 180 mg PO DAILY BLOOD PRESSURE #90 caps 03/21/24 insulin aspart U-100 100 unit/mL (3 mL) subcutaneous pen (Novolog FlexPen U-100 Insulin aspart) See Rx Instructions subcut .COMPLEX insulin 05/03/24 acetaminophen 650 mg tablet,extended release (8 Hour Pain Reliever) 1,300 mg PO Q12H PRN pain 05/21/24 cyanocobalamin (vitamin B-12) 1,000 mcg tablet 1,000 mcg PO DAILY 05/21/24 insulin aspart U-100 100 unit/mL (3 mL) subcutaneous pen (Novolog FlexPen U-100 Insulin aspart) 20 unit subcut .COMPLEX 05/21/24 ipratropium 0.5 mg-albuterol 3 mg (2.5 mg base)/3 mL nebulization soln 3 ml inhalation Q4H PRN PRN shortness of breath 05/21/24 lidocaine 5 % topical patch 2 patch topical DAILY PRN pain 05/21/24 polyethylene glycol 3350 17 gram/dose oral powder (ClearLax) 17 g PO QHS constipation 05/21/24 azelastine 137 mcg (0.1 %) nasal spray 2 spray intranasal BID nasal 06/21/24 fenofibrate nanocrystallized 145 mg tablet (Tricor) 145 mg PO DAILY CHOLESTEROL 07/01/24 montelukast 10 mg tablet (Singulair) 10 mg PO QPM ASTHMA 07/01/24 omega-3 fatty acids 1,000 mg capsule 1,000 mg PO DAILY 07/01/24 ondansetron 4 mg disintegrating tablet 4 mg PO DAILY PRN 07/01/24 torsemide 20 mg tablet 20 mg PO DAILY water pill 07/01/24 diclofenac sodium 1 % topical gel (Arthritis Pain (diclofenac)) 2 g topical TID PRN pain 08/11/24 carvedilol 6.25 mg tablet 6.25 mg PO BID heart 08/29/24 sennosides 8.6 mg-docusate sodium 50 mg tablet (Stimulant Laxative Plus) 1 tab PO BID PRN constipation #0 tabs 08/31/24 Physical Exam Narrative Seen and examined Patient heart rate in normal range. Intermittent PVCs. Currently sinus rhythm but has P A-fib. No chest pain or shortness of breath. Hemoglobin 9.4. Physical exam General: Alert, Oriented x3, Cooperative, chronic fatigue. HEENT: Atraumatic, PERRLA, EOMI, Normocephalic Oral: No Gingival or Mucosal Lesions/ Ulcerations Neck: Supple, No JVD, Negative Carotid Bruits Chest wall/Lungs: Air entry diminished in bilateral lung bases. No crepitation/rhonchi Cardiovascular: Sinus rhythm, heart rate 75.. Normal S1, Normal S2, No M/G/R Abdomen: Bowel Sounds Present, Soft, Non Tender, Non-Distended : No dysuria. No renal angle tenderness. No suprapubic tenderness. Extremities: No edema, Capillary Refill Less than 3 Seconds Skin: No rashes, No breakdown Musculoskeletal: No Tenderness to Palpation of Joints or Extremities Neurological: Cranial nerves II-XII grossly intact, DTR 2+/4. No acute focal neurological deficit. Psych/Mental Status: Normal Affect, Appropriate. Weight / BMI Weight Weight: 227 lb 15.327 oz Body Mass Index (BMI) 46.0 ABG / Lab / Microbiology Data 08/31/24 05:24 08/31/24 05:24 Laboratory: Laboratory Results - last 24 hr 08/31/24 05:24: WBC 6.3, RBC 3.19 L, Hgb 9.4 L, Hct 31.3 L, MCV 98.1, MCH 29.5, MCHC 30.0 L, RDW Std Deviation 56.3 H, RDW Coeff of Jazzmine 15.6 H, Plt Count 193, MPV 9.6, Immature Gran % (Auto) 0.600, Neut % (Auto) 74.3 H, Lymph % (Auto) 10.4 L, [place] % (Auto) 11.5 H, Eos % (Auto) 2.7, Baso % (Auto) 0.5, Absolute Neuts (auto) 4.7, Absolute Lymphs (auto) 0.66 L, Nucleated RBC % 0, Sodium 144, Potassium 4.4, Chloride 109 H, Carbon Dioxide 32.0, Anion Gap 3 L, BUN 44 H, C reatinine 1.78 H, Estim Creat Clear Calc 30.51, Est GFR (MDRD) Af Amer 36 L, Est GFR (MDRD) Non-Af 30 L, BUN/Creatinine Ratio 24.7 H, Glucose 107 H, Calcium 10.5 H 08/31/24 08:08: POC Glucose 124 H Microbiology: Microbiology 08/29/24 02:12 Mucosa - Nose SARS-CoV-2, Influenza & RSV (PCR) - Final D/C Instructions Discharge Diet: Low fat / Low cholesterol, 6 Cup Fluid Restriction, 8 Cup Fluid Restriction and 2000 mg Sodium Diet Weight Bearing Status: Weight bearing as tolerated Call your doctor if you observe: Fever of 101 or Higher, Coldness, Increased Pain, Numbness or Tingling, Change in Color, Inability to urinate, Inability to have a bowel movement, Shortness of breath, Dizziness, Fainting spells, Swelling in the ankles, Chest pain, Prolonged hiccupping, Increased palpitations (irregular heartbeat) and Calf discomfort When: IN 2 WEEKS Meaningful Use Info Meaningful Use Meaningful Use Diagnoses (Choose all that apply): None applicable Ischemic Stroke Statin Dosing Therapy Reference: STATIN DOSE THERAPY REFERENCE: * Patients > 75 years receive moderate or high dose statin therapy. * Patients 75 years or YOUNGER should receive HIGH intensity statin dose unless contraindicated. You will be required to document reason for non-treatment if statin daily dose does not meet guidelines. HIGH DOSE STATIN THERAPY DAILY Atorvastatin > than or = to 40 mg Rosuvastatin > than or = to 20 mg Amlodipine + Atorvastatin > than or = to 2.5/40 mg Ezetimibe + Simvastatin 10/80 mg Simvastatin 80mg Discharge Plan Admission Admit Date/Time: 08/29/24 04:41 Primary Reason for Your Visit: KARLA on CKD, generalized weakness, leg swelling Attending Provider: David Murphy Primary Care Provider: Veronica Oquendo Consulting Providers: Vivek Logan Discharge Orders/Prescriptions Prescriptions: New sennosides-docusate sodium [Stimulant Laxative Plus] 8.6-50 mg Tablet 1 tab PO BID PRN (Reason: constipation) Qty: 0 0RF Rx Instructions: [id number] Continued fluticasone propion-salmeterol [Advair Diskus] 500-50 mcg/dose blister with device 1 inh INHALATION BID aspirin 81 mg tablet,delayed release (DR/EC) 81 mg PO DAILY Qty: 1 0RF levalbuterol HCl 0.63 mg/3 mL solution for nebulization 0.63 mg inhalation Q6H PRN (Reason: WHEEZING ) insulin glargine 100 unit/mL (3 mL) insulin pen 38 unit SC QPM budesonide 0.5 mg/2 mL suspension for nebulization 0.5 mg inhalation QODAY PRN (Reason: BREATHING) fenofibrate nanocrystallized [Tricor] 145 mg tablet 145 mg PO DAILY tramadol 50 mg tablet 50 mg PO .COMPLEX PRN (Reason: pain) Rx Instructions: 50 mg orally 2-3X daily PRN; Acidophilus Capsule 10 mg PO DAILY Linzess 145 mcg capsule 145 mcg PO DAILY Tart Scott Extract 1,000 mg capsule 1,200 mg PO DAILY azelastine 137 mcg (0.1 %) spray,non-aerosol 2 spray intranasal BID Patient Comments: [NO ORIGINAL SIG] ondansetron 4 mg tablet,disintegrating 4 mg PO DAILY PRN omega-3 fatty acids 1,000 mg capsule 1,000 mg PO DAILY diclofenac sodium [Arthritis Pain (diclofenac)] 1 % gel 2 g topical TID PRN (Reason: pain) Rx Instructions: apply to single elbow, wrist or hand; for hand includes palm/fingers/back of hand fluticasone propionate 1 SPRAY spray,suspension 2 spray NASAL DAILY PRN PRN (Reason: NASAL CONGESTION ) febuxostat [Uloric] 40 MG tablet 40 mg PO DAILY pantoprazole 40 mg tablet,delayed release (DR/EC) 40 mg PO DAILY loratadine [Claritin] 10 mg Tablet 10 mg PO DAILY mirabegron [Myrbetriq] 50 mg Tablet Extended Release 24 Hr 50 mg PO DAILY Spiriva Respimat 1.25 mcg/actuation Mist 2 puff INHALATION DAILY montelukast [Singulair] 10 mg tablet 10 mg PO QPM insulin aspart U-100 [Novolog FlexPen U-100 Insulin] 100 unit/mL (3 mL) insulin pen See Rx Instructions subcut .COMPLEX Rx Instructions: 12-14 units subcutaneously before breakfast and lunch; cyanocobalamin (vitamin B-12) 1,000 mcg tablet 1,000 mcg PO DAILY lidocaine 5 % adhesive patch,medicated 2 patch topical DAILY PRN (Reason: pain) insulin aspart U-100 [Novolog FlexPen U-100 Insulin] 100 unit/mL (3 mL) insulin pen 20 unit subcut .COMPLEX Rx Instructions: 20 units subcutaneously before dinner; acetaminophen [8 Hour Pain Reliever] 650 mg tablet extended release 1,300 mg PO Q12H PRN (Reason: pain) polyethylene glycol 3350 [ClearLax] 17 gram/dose powder 17 g PO QHS ipratropium-albuterol 0.5 mg-3 mg(2.5 mg base)/3 mL solution for nebulization 3 ml inhalation Q4H PRN PRN (Reason: shortness of breath) carvedilol 6.25 mg tablet 6.25 mg PO BID (DME) pen needle, diabetic [BD Ultra-Fine Sonam Pen Needle] 32 gauge x 5/32 needle See Rx Instructions .ROUTE .MEDSUPPLY Qty: 400 3RF Rx Instructions: 4times daily (DME) FreeStyle Garett 2 Sensor Kit See Rx Instructions .ROUTE .MEDSUPPLY Qty: 6 3RF Rx Instructions: 1 sensor q 14 days diltiazem HCl [Tiazac] 180 mg capsule,extended release 24 hr 180 mg PO DAILY Qty: 90 3RF Held torsemide 20 mg tablet 20 mg PO DAILY Hold Instructions: Start from 09/01/2020 Take extra 20 mg dose at 5 PM for increased leg swelling or weight gain 5 pounds in 1 week. Rx Instructions: Take 2 tabs for two days then TAKE 1 TABLET BY MOUTH DAILY unless weight has increased by 2 (TWO) pounds or more, then take second tablet Discontinued doxycycline monohydrate 100 mg capsule 100 mg PO BID Referrals / Follow Up: Christel Chaidez MD [Med Staff - Consulting] - Within 2 Weeks (KARLA on CKD. Heart failure on diuretic/torsemide) Veronica Oquendo DO [Primary Care Provider] - Gabbi Cuba PA [Med Staff - Adv Practice Prof] - Within 2 Weeks (For bradycardia. P A-fib, heart failure ) Disposition Disposition (needs filled in before D/C Order can be placed): Home Health Service Charges/Coding Visit Charges Inpatient E&M: 54614 Disch Hosp >30min
[2024-08-31 12:08] LABS: Bedside Glucose 154 mg/dL (74-106)
[2024-08-31 13:02] VITALS: O2SAT 85; O2SAT 86; O2SAT 92; O2SAT 97
[2024-08-31 13:19] VITALS: PULSE 70; RESP 17
== END 2024-08-31 15:06 | disposition home health service (06) | DRG 683 ==
LOC: ED 04:14 → PCU 05:13
PROVIDERS: Admitting Provider Internal Medicine; Emergency Provider Emergency Medicine; PCP Internal Medicine; Visit Provider Internal Medicine
DX: N17.9 Acute kidney failure, unspecified (principal); J96.11 Chronic respiratory failure with hypoxia; I13.0 Hypertensive heart and chronic kidney disease with heart failure and stage 1 through stage 4 chronic kidney disease, or unspecified chronic kidney disease; I50.32 Chronic diastolic (congestive) heart failure; I27.21 Secondary pulmonary arterial hypertension; J44.89 Other specified chronic obstructive pulmonary disease; I48.0 Paroxysmal atrial fibrillation; Z68.42 Body mass index [BMI] 45.0-49.9, adult; E66.01 Morbid (severe) obesity due to excess calories; E11.22 Type 2 diabetes mellitus with diabetic chronic kidney disease; Z79.4 Long term (current) use of insulin; N18.32 Chronic kidney disease, stage 3b; D63.8 Anemia in other chronic diseases classified elsewhere; E78.5 Hyperlipidemia, unspecified; K21.9 Gastro-esophageal reflux disease without esophagitis; I87.2 Venous insufficiency (chronic) (peripheral); D86.9 Sarcoidosis, unspecified; G47.33 Obstructive sleep apnea (adult) (pediatric); M10.9 Gout, unspecified; R00.1 Bradycardia, unspecified; T50.1X5A Adverse effect of loop [high-ceiling] diuretics, initial encounter; Z11.52 Encounter for screening for COVID-19; Z91.199 Patient's noncompliance with other medical treatment and regimen due to unspecified reason; Z99.81 Dependence on supplemental oxygen; Z79.82 Long term (current) use of aspirin; Z79.51 Long term (current) use of inhaled steroids; Z87.891 Personal history of nicotine dependence; Z79.899 Other long term (current) drug therapy; N32.81 Overactive bladder; M81.0 Age-related osteoporosis without current pathological fracture; I45.10 Unspecified right bundle-branch block
CPT/HCPCS: 36415; 71045; 80048; 80053; 80076; 81001; 82803; 82962; 83036; 83735; 83880; 84100; 84145; 84443; 85025; 87631; 93005; 94640; 94668; 96360; 96361; 97162; 97166; 97802; 99221; 99284; 99406; A4216; G0378

== ENCOUNTER → 2024-10-03 | Outpatient (CLI) | payer MEDICARE, OTHER, SELFPAY ==
[2024-07-20 15:07] VITALS: BMI 40.4
[2024-10-03 13:50] LABS: Bacteria 0 SEEN /hpf (None Seen); Red Blood Cells-Urine 0 SEEN /hpf (0-5)
[2024-10-03 15:16] LABS: Color, Urine Yellow (Yellow); Glucose, Dipstick Normal (Normal); Ketone-Dipstick Negative (Negative); Leukocyte Esterase-Dipstick 100 /ul (Negative); Nitrite-Dipstick Negative (Negative); Occult Blood-Urine Negative /ul (Negative); Protein-Dipstick 15 mg/dl (Negative); Specific Gravity, Urine 1.015 (1.002-1.030); Urine Bilirubin Dipstick Negative (Negative); Urine Clarity Clear (Clear); Urine Urobilinogen Normal (Normal)
[2024-10-03 15:29] LABS: Mucous, Urine 1+ /hpf (<or=2+); Renal Epithelial Cells 0-5 SEEN /hpf (0-5); Squamous Epithelial Cells - UA 0-5 SEEN /hpf (5-10); White Blood Cells 5-10 SEEN /hpf (0-5)
[2024-10-03 15:30] LABS: Fine Granular Cast- Urine 0-5 SEEN /lpf (0-5)
[2024-10-03 16:30] LABS: Microalbumin,Random Urine 40.3 mg/L (NO RANGE EST.); Microalbumin:Creatinine Ratio 53.4 mg/g CRE (<30 mg/g CRE)
[2024-10-03 17:52] LABS: Hematocrit 34.5 % (37-47); Hemoglobin 10.7 g/dL (12.0-15.0); Mean Corpuscular Hgb 30.2 pg (27.0-32.0); Mean Corpuscular Volume 97.5 fL (81-99); Platelet Count 282 K/mm3 (150-450); RBC Distribution Width CV 13.9 % (11.6-14.6); RBC Distribution Width SD 49.5 fl (35.1-43.9); Red Blood Count 3.54 M/mm3 (4.2-5.4); White Blood Count 10.2 K/mm3 (4.4-11.0)
[2024-10-03 18:51] LABS: Vitamin D,25 Hydroxy 65.7 ng/mL
[2024-10-03 18:54] LABS: PTHIN 65.3 pg/mL (18.4-80.1)
[2024-10-03 18:56] LABS: Albumin, Serum 3.6 g/dL (3.2-5.0); BUN 71 mg/dL (7-18); BUN/Creat Ratio 30.9 RATIO (10-20); Calcium,Total 10.5 mg/dL (8.5-10.1); Chloride 102 mmol/L (98-107); EST Glomerular Filtration Rate 22 mL/min (>60); Est Glom Filt Rate - Afr Amer 27 mL/min (>60); Glucose 141 mg/dL (74-106); Magnesium 1.9 mg/dL (1.6-2.6); Phosphorus 3.2 mg/dL (2.5-4.9); Potassium 4.2 mmol/L (3.5-5.1); Sodium Level 139 mmol/L (136-145); Uric Acid 5.9 mg/dL (2.6-6.0)
[2024-10-06 14:11] LABS: Vitamin D 1,25-Dihydroxy 40.7 pg/mL (24.8-81.5)
== END | disposition home or self-care (01) ==
PROVIDERS: PCP Internal Medicine; Referring Provider Internal Medicine Nephrology; Visit Provider Internal Medicine Nephrology
DX: R30.0 Dysuria (principal); N18.4 Chronic kidney disease, stage 4 (severe); D63.1 Anemia in chronic kidney disease; E55.9 Vitamin D deficiency, unspecified; M10.9 Gout, unspecified
CPT/HCPCS: 36415; 80069; 81001; 82043; 82306; 82570; 82652; 83735; 83970; 84550; 85027; 87077; 87086; 87088; 87186

== ENCOUNTER → 2024-10-26 | Outpatient (CLI) | payer MEDICARE, OTHER, SELFPAY ==
[2024-07-20 15:07] VITALS: BMI 40.4
== END | disposition home or self-care (01) ==
LOC: OPBI 12:32
PROVIDERS: PCP Internal Medicine; Referring Provider Internal Medicine; Visit Provider Internal Medicine
DX: Z12.31 Encounter for screening mammogram for malignant neoplasm of breast (principal)
CPT/HCPCS: 77063; 77067

== ENCOUNTER → 2024-11-16 | Outpatient (CLI) | payer MEDICARE, OTHER, SELFPAY ==
[2024-07-20 15:07] VITALS: BMI 40.4
--- NOTE | 2024-11-16 15:03 | CDU_ITS ---
Reason For Study: Stenosis Rt. Velocities/BP Lt. Velocities/BP Prox CCA 70.7/9.3 cm/sec. Prox CCA 104.5/14.5 cm/sec. Mid CCA 78.1/11.8 cm/sec. Mid CCA 65.8/11.8 cm/sec. Dist CCA 72.0/9.3 cm/sec. Dist CCA 59.7/10.6 cm/sec. Prox ICA 56.7/10.6 cm/sec. Prox ICA 68.3/9.3 cm/sec. Mid ICA 85.1/15.7 cm/sec. Mid ICA 50.2/11.7 cm/sec. Dist ICA 84.8/19.6 cm/sec. Dist ICA 117.9/20.2 cm/sec. Rt. ICA/CCA = 1.1. Lt. ICA/CCA = 1.8. Prox ECA 95.7/0.0 cm/sec. Prox ECA 72.0/0.0 cm/sec. Rt. Vert. 53.4/8.4 cm/sec. Lt. Vert. 36.0/9.0 cm/sec. Right Extracranial There is heterogeneous, irregular atherosclerotic plaque noted in the right common carotid artery. There is heterogeneous, irregular atherosclerotic plaque noted in the right internal carotid artery. There is heterogeneous, irregular atherosclerotic plaque noted in the right external carotid artery. Antegrade flow is noted in the right vertebral artery. Left Extracranial There is intimal thickening but no significant atherosclerotic plaque noted in the left common carotid artery. There is heterogeneous, irregular atherosclerotic plaque noted in the left internal carotid artery. The left internal carotid artery is very tortuous. There is heterogeneous, irregular atherosclerotic plaque noted in the left external carotid artery. Antegrade flow is noted in the left vertebral artery. Procedure Carotid Duplex [id number]. This is a Carotid Duplex examination using B-mode, color flow and specral Doppler. Exam performed in department. VL/Carotid Duplex Ultrasound Interpretation Summary Mild (<50%) stenosis right extracranial internal carotid. Mild (<50%) stenosis left extracranial internal carotid. Patent and antegrade vertebrals bilaterally. Ordering Physician: Veronica Oquendo Referring Physician: Veronica Oquendo Performed By: Alannah Fitzgerald RVT and Student
== END | disposition home or self-care (01) ==
LOC: CVS 15:02
PROVIDERS: PCP Internal Medicine; Referring Provider Internal Medicine; Visit Provider Internal Medicine
DX: I65.23 Occlusion and stenosis of bilateral carotid arteries (principal)
CPT/HCPCS: 93880

== ENCOUNTER → 2024-12-13 | Outpatient (CLI) | payer MEDICARE, OTHER, SELFPAY ==
[2024-07-20 15:07] VITALS: BMI 40.4
--- NOTE | 2024-12-13 13:07 | RAD_ITS ---
EXAM: XR CHEST, 2 VIEWS CLINICAL INDICATION: ASTHMA TECHNIQUE: Frontal and lateral views of the chest. COMPARISON: 08/29/34 FINDINGS: LUNGS AND PLEURAL SPACES: Atelectasis versus infiltrate at the left base with new obscuration of the left hemidiaphragm. A small left pleural effusion is not excluded. Emphysema. No pneumothorax. HEART: Unremarkable. Cardiac silhouette not enlarged. MEDIASTINUM: Central airways and mediastinal contour are unremarkable. BONES/JOINTS: Diffuse osteopenia and degenerative changes of the spine. S-shaped curvature of the spine. No acute fracture. SOFT TISSUES: Unremarkable. LYMPH NODES: Calcified lymph nodes about the hilum bilaterally mediastinum. Scattered calcified pulmonary granulomas. RAD/Chest PA and Lateral IMPRESSION: Atelectasis versus infiltrate at the left base with new obscuration of the left hemidiaphragm. A small left pleural effusion is not excluded. Old granulomatous disease. Ancillary findings as above. Electronically Signed: Miguel Angel Garibay MD at 15:27 EST ,
== END | disposition home or self-care (01) ==
LOC: MTRAD 13:06
PROVIDERS: PCP Internal Medicine; Referring Provider Internal Medicine Pulmonary Disease; Visit Provider Internal Medicine Pulmonary Disease
DX: J45.40 Moderate persistent asthma, uncomplicated (principal)
CPT/HCPCS: 71046

== ENCOUNTER → 2025-01-02 | Outpatient (CLI) | payer MEDICARE, OTHER, SELFPAY ==
[2024-07-20 15:07] VITALS: BMI 40.4
--- NOTE | 2025-01-02 13:06 | CT_ITS ---
PROCEDURE: ABDOMEN/PELVIS WITHOUT CONT REASON FOR EXAM: One-week history of bloating and abdominal pain. Chronic kidney disease stage 4. TECHNIQUE: Abdomen and pelvis CT without intravenous contrast. COMPARISON: Comparison is made with prior study dated April 15, 2024. FINDINGS: Noncontrast technique limits evaluation of the abdominal and pelvic viscera. Lung bases: Stable lobulated density in the peripheral aspect of the left lower lobe measuring 2.8 cm by 2.5 cm. Small bilateral pleural effusions slightly greater on the left side. Coronary artery calcification. Calcified right infrahilar lymph nodes. Liver: Unremarkable. Gallbladder: Surgically absent. Spleen: Unremarkable. Pancreas: Unremarkable. Adrenals: Unremarkable. Kidneys: Marked atrophy of the left kidney. Bladder: Unremarkable. Reproductive Organs: Unremarkable. Bowel: Colonic diverticulosis without diverticulitis. Appendix: The appendix is not identified. There is no inflammatory process identified in the right lower quadrant to suggest appendicitis. Status post hysterectomy. Lymph nodes: No suspicious lymph node enlargement. Vasculature: Diffuse atherosclerotic calcifications of the aorta and major visceral branches are noted. Peritoneum / Retroperitoneum: No ascites. No free air. Bones: Degenerative changes of the spine. Prior vertebroplasty of the L1 vertebra with loss of height. Prior fusion at the L4-L5 and L5-S1 levels. CT/Abdomen/Pelvis without Cont IMPRESSION: LIMITED NONCONTRAST CT OF THE ABDOMEN AND PELVIS. NO ACUTE FINDINGS. Left renal atrophy. One or more dose reduction techniques were used (e.g., Automated exposure contr ol, adjustment of the mA and/or kV according to patient size, use of iterative reconstruction technique). Reading Location: [place] [id number]
[2025-01-02 16:49] LABS: AST(SGOT) 18 U/L (15-37); Alanine Aminotransfer ALT/SGPT 22 U/L (13-56); Albumin, Serum 3.4 g/dL (3.2-5.0); Alkaline Phosphatase 51 U/L (45-117); Amylase 48 U/L (25-115); Anion Gap 7 (5-15); BUN 63 mg/dL (7-18); BUN/Creat Ratio 28.9 RATIO (10-20); Calcium,Total 10.6 mg/dL (8.5-10.1); Chloride 102 mmol/L (98-107); Creatinine, Serum 2.18 mg/dL (0.55-1.02); EST Glomerular Filtration Rate 23 mL/min (>60); Est Glom Filt Rate - Afr Amer 28 mL/min (>60); Globulin 3.3 g/dL (2.2-4.2); Glucose 122 mg/dL (74-106); Lipase 35 U/L (13-75); Potassium 4.1 mmol/L (3.5-5.1); Protein, Total 6.7 g/dL (6.4-8.2); Sodium Level 142 mmol/L (136-145)
[2025-01-02 16:59] LABS: Erythrocyte Sedimentation Rate 7 mm/hr (0-30)
== END | disposition home or self-care (01) ==
PROVIDERS: PCP Internal Medicine; Referring Provider Internal Medicine; Visit Provider Internal Medicine
DX: R10.9 Unspecified abdominal pain (principal); N18.4 Chronic kidney disease, stage 4 (severe)
CPT/HCPCS: 74176; 80053; 82150; 83690; 85652; 86140

== ENCOUNTER → 2025-01-03 | Outpatient (CLI) | payer MEDICARE, OTHER, SELFPAY ==
[2024-07-20 15:07] VITALS: BMI 40.4
--- NOTE | 2025-01-03 11:02 | RAD_ITS ---
EXAM: XR Abdomen, 2 Views and XR Chest, 1 View CLINICAL INDICATION: TECHNIQUE: Frontal view of the chest, frontal view of the abdomen/pelvis and upright or decubitus view of the abdomen. COMPARISON: No relevant prior studies available. FINDINGS: LUNGS AND PLEURAL SPACES: See below. HEART: Cardiomegaly with mild congestion. MEDIASTINUM: Unremarkable. Normal mediastinal contour. INTRAPERITONEAL SPACE: No free air. GASTROINTESTINAL TRACT: Mild volume fecal retention in the colon consistent with constipation. No dilation. BONES/JOINTS: Unremarkable. No acute fracture. RAD/Acute Abdomen Inc Chest IMPRESSION: 1. Cardiomegaly with mild congestion. 2. Mild volume fecal retention in the colon consistent with constipation. Reading Location: [facility]
== END | disposition home or self-care (01) ==
LOC: MTRAD 11:02
PROVIDERS: PCP Internal Medicine; Referring Provider Internal Medicine; Visit Provider Internal Medicine
DX: R10.9 Unspecified abdominal pain (principal)
CPT/HCPCS: 74022

== ENCOUNTER → 2025-01-20 | Outpatient (CLI) | payer MEDICARE, OTHER, SELFPAY ==
[2024-07-20 15:07] VITALS: BMI 40.4
[2025-01-20 15:30] LABS: Hematocrit 34.9 % (37-47); Mean Corp Hgb Conc 31.5 g/dL (32-36); Mean Corpuscular Hgb 29.7 pg (27.0-32.0); Mean Corpuscular Volume 94.3 fL (81-99); Mean Platelet Vol. 10.5 fl (6.2-12.0); Platelet Count 229 K/mm3 (150-450); RBC Distribution Width CV 14.3 % (11.6-14.6); RBC Distribution Width SD 48.7 fl (35.1-43.9); White Blood Count 9.7 K/mm3 (4.4-11.0)
[2025-01-20 17:57] LABS: Albumin, Serum 3.5 g/dL (3.2-5.0); BUN 55 mg/dL (7-18); BUN/Creat Ratio 34.2 RATIO (10-20); Calcium,Total 10.8 mg/dL (8.5-10.1); Chloride 102 mmol/L (98-107); Creatinine, Serum 1.61 mg/dL (0.55-1.02); EST Glomerular Filtration Rate 33 mL/min (>60); Est Glom Filt Rate - Afr Amer 40 mL/min (>60); Glucose 217 mg/dL (74-106); Magnesium 1.7 mg/dL (1.6-2.6); Phosphorus 2.8 mg/dL (2.5-4.9); Sodium Level 137 mmol/L (136-145); Uric Acid 4.5 mg/dL (2.6-6.0)
[2025-01-20 17:59] LABS: Vitamin D,25 Hydroxy 85.8 ng/mL
[2025-01-20 18:05] LABS: Microalbumin:Creatinine Ratio 166.4 mg/g CRE (<30 mg/g CRE)
[2025-01-20 18:26] LABS: PTHIN 49.6 pg/mL (18.4-80.1)
[2025-01-24 12:08] LABS: Vitamin D 1,25-Dihydroxy 47.2 pg/mL (24.8-81.5)
== END | disposition home or self-care (01) ==
LOC: MTLAB 13:22
PROVIDERS: PCP Internal Medicine; Referring Provider Internal Medicine Nephrology; Visit Provider Internal Medicine Nephrology
DX: E55.9 Vitamin D deficiency, unspecified (principal); N18.4 Chronic kidney disease, stage 4 (severe); D63.1 Anemia in chronic kidney disease; M10.9 Gout, unspecified
CPT/HCPCS: 36415; 80069; 82043; 82306; 82570; 82652; 83735; 83970; 84550; 85027

== ENCOUNTER → 2025-02-15 | Outpatient (CLI) | payer MEDICARE, OTHER, SELFPAY ==
[2024-07-20 15:07] VITALS: BMI 40.4
[2025-02-15 18:32] LABS: Amphetamine Urine NEGATIVE (<1000 ng/mL); Barbiturate Urine NEGATIVE (< 200 ng/mL); Benzodiazepine Urine NEGATIVE (< 200 ng/mL); Buprenorphine Urine NEGATIVE (< 200 ng/mL); Cocaine Urine NEGATIVE (< 300 ng/mL); Fentanyl, Urine NEGATIVE; Methadone Urine NEGATIVE (< 300 ng/mL); Opiates Urine NEGATIVE (< 300 ng/mL); Oxycodone, Urine NEGATIVE (< 100 ng/mL); PCP Urine NEGATIVE (< 25 ng/mL); THC Urine NEGATIVE (< 50 ng/mL)
== END | disposition home or self-care (01) ==
LOC: LAB 13:15
PROVIDERS: PCP Internal Medicine; Referring Provider Anesthesiology Pain Medicine; Visit Provider Anesthesiology Pain Medicine
DX: F11.20 Opioid dependence, uncomplicated (principal)
CPT/HCPCS: 80307

== ENCOUNTER → 2025-07-03 | Outpatient (CLI) | payer MEDICARE, OTHER, SELFPAY ==
[2024-07-20 15:07] VITALS: BMI 40.4
[2025-07-03 15:30] LABS: Hematocrit 34.6 % (37-47); Hemoglobin 11.3 g/dL (12.0-15.0); Immature Granulocytes Count 0.050 X10^3/uL (0.0-0.0); Mean Corp Hgb Conc 32.7 g/dL (32-36); Mean Corpuscular Volume 94.8 fL (81-99); Mean Platelet Vol. 10.5 fl (6.2-12.0); NRBC Flagged by Analyzer 0 % (0-5); Platelet Count 212 K/mm3 (150-450); RBC Distribution Width CV 13.6 % (11.6-14.6); RBC Distribution Width SD 47.0 fl (35.1-43.9); Red Blood Count 3.65 M/mm3 (4.2-5.4); White Blood Count 7.2 K/mm3 (4.4-11.0)
[2025-07-03 18:16] LABS: Ferritin 61 ng/mL (22-378); Iron 98 ug/dL (50-170); Iron Binding Capacity,Total 386 ug/dL (250-450); Iron Binding Capacity,Unsat 288 ug/dL (228-428)
== END | disposition home or self-care (01) ==
LOC: MTLAB 13:13
PROVIDERS: PCP Internal Medicine; Referring Provider Internal Medicine Pulmonary Disease; Visit Provider Internal Medicine Pulmonary Disease
DX: J45.909 Unspecified asthma, uncomplicated (principal); R06.02 Shortness of breath
CPT/HCPCS: 36415; 82728; 83540; 83550; 85025

== ENCOUNTER → 2025-07-07 | Outpatient (CLI) | payer MEDICARE, OTHER, SELFPAY ==
[2024-07-20 15:07] VITALS: BMI 40.4
--- NOTE | 2025-07-07 10:40 | RAD_ITS ---
PROCEDURE: CHEST PA AND LATERAL 07/07/2025 REASON FOR EXAM: ABNORMAL LUNG SOUNDS TECHNIQUE: CHEST PA AND LATERAL COMPARISON: Frontal chest of 01/03/2025. RAD/Chest PA and Lateral IMPRESSION: Generalized osteopenia is seen. [id number] degenerative changes of the visualized spine are noted. Persistent dextroscoliosis of the thoracic spine noted. Prior kyphoplasty note d lower thoracic spine or upper lumbar spine. Mild Interstitial Pulmonary Edema is likely present. Areas pleural thickening, [id number], appear stable. No pleural effusion is clearly identified. No pneumothorax is seen. The cardiomediastinal silhouette is stable, with borderline cardiomegaly noted. Reading Location: [facility]
== END | disposition home or self-care (01) ==
LOC: MTRAD 10:39
PROVIDERS: PCP Internal Medicine; Referring Provider Internal Medicine; Visit Provider Internal Medicine
DX: R09.89 Other specified symptoms and signs involving the circulatory and respiratory systems (principal)
CPT/HCPCS: 71046

== ENCOUNTER → 2025-07-10 | Outpatient (CLI) | payer MEDICARE, OTHER, SELFPAY ==
[2024-07-20 15:07] VITALS: BMI 40.4
--- NOTE | 2025-07-10 11:17 | RAD_ITS ---
PROCEDURE: CHEST PA AND LATERAL 07/10/2025 REASON FOR EXAM: CXR PA T LAT, SOB TECHNIQUE: CHEST PA AND LATERAL COMPARISON: Chest x-ray studies dated 07/07/2005 and 12/13/2024 FINDINGS: Heart is mildly enlarged however similar in size and configuration when compared to the prior exam. Arteriosclerotic vascular disease of the aorta is noted. Trachea is midline. Pulmonary vasculature is unremarkable. Calcified hilar lymph nodes are seen. Nodules are seen in both lungs and are similar when compared to the prior exams. These most likely represent granulomas. Chronic prominent interstitial markings are seen in both lungs and are similar when compared to the prior exams. There is no atelectasis, consolidation or pneumothoraces. Right costophrenic angle is sharp. Left costophrenic angle is blunted and similar when compared to the prior exams. This may represent a small pleural effusion or pleural parenchymal thickening/scarring. Diffuse osteopenia of the bony thorax is seen. Degenerative changes of the thoracic spine are noted. There is a dextroscoliosis of the thoracic spine. There is increased kyphotic curvature of the mid to lower thoracic spine. There has been previous vertebroplasty of what appears to be the L1 vertebral body. Clinically correlate. RAD/Chest PA and Lateral IMPRESSION: The overall cardiopulmonary findings are similar when compared to the prior maura richards Reading Location: [id number]
== END | disposition home or self-care (01) ==
LOC: MTRAD 11:13
PROVIDERS: PCP Internal Medicine; Referring Provider Internal Medicine; Visit Provider Internal Medicine
DX: J81.1 Chronic pulmonary edema (principal); R06.02 Shortness of breath
CPT/HCPCS: 71046

== ENCOUNTER → 2025-07-17 | Outpatient (CLI) | payer MEDICARE, OTHER, SELFPAY ==
[2024-07-20 15:07] VITALS: BMI 40.4
[2025-07-17 18:20] LABS: Anion Gap 12 (5-15); BUN 63 mg/dL (4-19); BUN/Creat Ratio 33.7 RATIO (10-20); Calcium,Total 11.1 mg/dL (7.6-11.0); Carbon Dioxide 29.5 mmol/L (21.0-32.0); Chloride 98 mmol/L (98-108); Glucose 115 mg/dL (70-99); Potassium 4.0 mmol/L (3.3-5.1); Pro- Brain NATRIURETIC PEPTIDE 1244 pg/mL (<=900)
== END | disposition home or self-care (01) ==
LOC: MTLAB 13:55
PROVIDERS: PCP Internal Medicine; Referring Provider Internal Medicine; Visit Provider Internal Medicine
DX: J81.1 Chronic pulmonary edema (principal)
CPT/HCPCS: 36415; 80048; 83880

== ENCOUNTER → 2025-07-19 | Outpatient (CLI) | payer MEDICARE, OTHER, SELFPAY ==
[2024-07-20 15:07] VITALS: BMI 40.4
== END | disposition home or self-care (01) ==
LOC: LABSPEC 20:36
PROVIDERS: PCP Internal Medicine; Visit Provider Internal Medicine Pulmonary Disease
DX: R05.9 Cough, unspecified (principal); R06.02 Shortness of breath
CPT/HCPCS: 87070; 87205

== ENCOUNTER → 2025-07-28 | Outpatient (CLI) | payer MEDICARE, OTHER, SELFPAY ==
[2024-07-20 15:07] VITALS: BMI 40.4
[2025-07-28 17:48] LABS: Hematocrit 35.9 % (37-47); Hemoglobin 11.5 g/dL (12.0-15.0); Mean Corp Hgb Conc 32.0 g/dL (32-36); Mean Corpuscular Volume 96.2 fL (81-99); Mean Platelet Vol. 10.3 fl (6.2-12.0); Platelet Count 193 K/mm3 (150-450); RBC Distribution Width CV 13.1 % (11.6-14.6); RBC Distribution Width SD 46.4 fl (35.1-43.9); Red Blood Count 3.73 M/mm3 (4.2-5.4); White Blood Count 8.0 K/mm3 (4.4-11.0)
[2025-07-28 18:37] LABS: Albumin, Serum 4.0 g/dL (3.4-4.8); Anion Gap 12 (5-15); BUN 44 mg/dL (4-19); BUN/Creat Ratio 28.3 RATIO (10-20); Calcium,Total 10.9 mg/dL (7.6-11.0); Carbon Dioxide 26.5 mmol/L (21.0-32.0); Chloride 101 mmol/L (98-108); Glucose 141 mg/dL (70-99); Magnesium 1.8 mg/dL (1.5-2.2); Potassium 4.3 mmol/L (3.3-5.1); Uric Acid 3.7 mg/dL (2.6-6.0); Vitamin D,25 Hydroxy 109.0 ng/mL (30-100)
[2025-07-28 18:56] LABS: PTHIN 65 pg/mL (11-61)
[2025-07-29 00:32] LABS: Creatinine, Urine (random) 70.70 mg/dL (28.00-217.00); Microalbumin,Random Urine 41.0 mg/L (<20 mg/L)
== END | disposition home or self-care (01) ==
LOC: MTLAB 14:35
PROVIDERS: PCP Internal Medicine; Referring Provider Internal Medicine Nephrology; Visit Provider Internal Medicine Nephrology
DX: N18.4 Chronic kidney disease, stage 4 (severe) (principal); E55.9 Vitamin D deficiency, unspecified; M10.9 Gout, unspecified
CPT/HCPCS: 36415; 80069; 82043; 82306; 82570; 83735; 83970; 84550; 85027

== ENCOUNTER → 2025-11-09 | Outpatient (CLI) | payer MEDICARE, OTHER, SELFPAY ==
[2024-07-20 15:07] VITALS: BMI 40.4
[2025-11-09 12:29] LABS: Color, Urine Yellow (Yellow); Glucose, Dipstick Normal (Normal); Ketone-Dipstick Negative (Negative); Leukocyte Esterase-Dipstick Negative /ul (Negative); Nitrite-Dipstick Negative (Negative); Occult Blood-Urine Negative /ul (Negative); Protein-Dipstick 15 mg/dl (Negative); Specific Gravity, Urine 1.010 (1.002-1.030); Urine Bilirubin Dipstick Negative (Negative)
[2025-11-09 12:31] LABS: Hematocrit 36.8 % (37-47); Hemoglobin 11.4 g/dL (12.0-15.0); Mean Corp Hgb Conc 31.0 g/dL (32-36); Mean Corpuscular Volume 98.1 fL (81-99); Mean Platelet Vol. 9.9 fl (6.2-12.0); POSITIVE COUNT YES; POSITIVE MORPHOLOGY YES; Platelet Count 326 K/mm3 (150-450); RBC Distribution Width CV 12.9 % (11.6-14.6); RBC Distribution Width SD 46.4 fl (35.1-43.9); Red Blood Count 3.75 M/mm3 (4.2-5.4); White Blood Count 7.1 K/mm3 (4.4-11.0)
[2025-11-09 12:55] LABS: Differential Indicated MANUAL DIFF
[2025-11-09 13:05] LABS: AST(SGOT) 28 U/L (<=31); Alanine Aminotransfer ALT/SGPT 9 U/L (<=34); Albumin, Serum 3.5 g/dL (3.4-4.8); Alkaline Phosphatase 42 U/L (35-104); Anion Gap 11 (5-15); BUN 53 mg/dL (4-19); BUN/Creat Ratio 33.0 RATIO (10-20); Calcium,Total 11.2 mg/dL (7.6-11.0); Carbon Dioxide 26.4 mmol/L (21.0-32.0); Chloride 100 mmol/L (98-108); Cholesterol 109 mg/dL (<=200); Ferritin 179 ng/mL (22-378); Globulin 3.2 g/dL (2.2-4.2); Glucose 103 mg/dL (70-99); Low Density Lipoprotein Calc. 47 mg/dL; Potassium 4.7 mmol/L (3.3-5.1); Triglycerides 231 mg/dL; Very Low Density Lipoprotein 46 mg/dL (5-40); Vitamin D,25 Hydroxy 81.1 ng/mL (30-100); cholesterol:hdl ratio screen 4.40
[2025-11-09 13:58] LABS: Neutrophil-Segmented 65 % (47-70); Total Cells Counted 100 (MANUAL DIFF)
[2025-11-09 13:59] LABS: Red Cell Morphology NORM C+C NORMAL (NORM C&C)
== END | disposition home or self-care (01) ==
LOC: MTLAB 09:46
PROVIDERS: PCP Internal Medicine; Referring Provider Internal Medicine; Visit Provider Internal Medicine
DX: D64.9 Anemia, unspecified (principal); I21.9 Acute myocardial infarction, unspecified; E11.22 Type 2 diabetes mellitus with diabetic chronic kidney disease; E78.00 Pure hypercholesterolemia, unspecified; E55.9 Vitamin D deficiency, unspecified; R77.0 Abnormality of albumin
CPT/HCPCS: 36415; 80053; 80061; 81002; 82306; 82728; 84443; 85025

== ENCOUNTER → 2025-11-17 | Outpatient (CLI) | payer MEDICARE, OTHER, SELFPAY ==
[2024-07-20 15:07] VITALS: BMI 40.4
== END | disposition home or self-care (01) ==
LOC: PSN 11:10
PROVIDERS: PCP Internal Medicine; Referring Provider Internal Medicine; Visit Provider Internal Medicine
DX: I48.91 Unspecified atrial fibrillation (principal)
CPT/HCPCS: 93225; 93226